=== PATIENT | male | born 1960 | race Caucasian/White ===

== ENCOUNTER 2022-11-13 07:28 | Outpatient (OUT) | payer MEDICARE, SELFPAY ==
[2022-11-13 08:57] VITALS: BP 143/84; PULSE 73; RESP 18; TEMP 36.5; O2SAT 97
--- NOTE | 2022-11-13 09:14 | PC.NURSE ---
Patient is here for Gamunex infusion, he states he has been getting these for about 2 years and has tolerated them well. He denies any issues or concerns today. Vitals are stable.
[2022-11-13 09:29] VITALS: BMI 27.5
[2022-11-13] MEDS: 0.9 % SODIUM CHLORIDE 250 ML 10 ML IV (09:35)
[2022-11-13] MEDS: HYDROCORTISONE SODIUM SUCC PF 100 MG/2 ML VIAL 120 MG IVP (09:37)
[2022-11-13] MEDS: IGA AVG IV (10:09)
[2022-11-13] MEDS: IMMUNE GLOBUL IV (10:09)
[2022-11-13] MEDS: GLY IV (10:09)
[2022-11-13 12:30] VITALS: BP 137/84; PULSE 73; RESP 18; O2SAT 94
--- NOTE | 2022-11-13 12:31 | PC.NURSE ---
Patient completed his Gamunex infusion without any issues. Vitals remained stable, he tolerated this well. IV was discontinued and he was discharged home.
== END 2022-11-13 07:29 | disposition home or self-care (01) ==
LOC: INF 07:28
PROVIDERS: PCP Family Medicine
DX: D80.6 Antibody deficiency with near-normal immunoglobulins or with hyperimmunoglobulinemia (principal)
CPT/HCPCS: 96365; 96366; 96375; J1561; J1720

== ENCOUNTER 2022-12-11 12:24 | Outpatient (OUT) | payer MEDICARE, SELFPAY ==
[2022-12-11 12:30] VITALS: BP 114/77; PULSE 96; RESP 20; TEMP 35.9; O2SAT 96
[2022-12-11] MEDS: HYDROCORTISONE SODIUM SUCC PF 100 MG/2 ML VIAL 120 MG IVP (12:59)
[2022-12-11] MEDS: 0.9 % SODIUM CHLORIDE 250 ML 10 ML IV (13:00)
[2022-12-11] MEDS: IMMUNE GLOBUL IV (13:34)
[2022-12-11] MEDS: GLY IV (13:34)
[2022-12-11] MEDS: IGA AVG IV (13:34)
--- NOTE | 2022-12-11 14:14 | PC.NURSE ---
Patient is here for Gamunex infusion, he denies any issues or concerns. He tolerated his IV start well, and he took his home medications of Tylenol and Benadryl. Gamunex is infusing and he is tolerating this well. We will continue to monitor.
[2022-12-11 14:43] VITALS: BP 104/66; PULSE 79; RESP 18; O2SAT 92
[2022-12-11 15:49] VITALS: BP 117/75; PULSE 76; RESP 18; O2SAT 94
== END 2022-12-11 12:25 | disposition home or self-care (01) ==
LOC: INF 12:32
PROVIDERS: PCP Family Medicine
DX: D80.6 Antibody deficiency with near-normal immunoglobulins or with hyperimmunoglobulinemia (principal)
CPT/HCPCS: 96365; 96366; 96374; J1561; J1720

== ENCOUNTER 2023-01-08 08:09 | Outpatient (RCR) | payer MEDICARE, SELFPAY ==
[2023-01-08 11:38] VITALS: BP 125/79; PULSE 76; RESP 18; O2SAT 94
[2023-01-08] MEDS: HYDROCORTISONE SODIUM SUCC PF 100 MG/2 ML VIAL 120 MG IVP (11:56)
[2023-01-08] MEDS: 0.9 % SODIUM CHLORIDE 250 ML IV (11:57)
[2023-01-08] MEDS: IMMUNE GLOBUL IV (11:58)
[2023-01-08] MEDS: IGA AVG IV (11:58)
[2023-01-08] MEDS: GLY IV (11:58)
[2023-01-08 12:50] LABS: Alanine Aminotransferase 14 U/L (16-63); Albumin Globulin Ratio 0.8; Albumin Level 3.2 g/dL (3.4-5.0); Alkaline Phosphatase 103 U/L (46-116); Anion Gap 12.7; Aspartate Amino Transferase 11 U/L (15-37); BUN Creatinine Ratio 15.3; Bilirubin Total 0.2 mg/dL (0.2-1.0); Calcium 8.2 mg/dL (8.5-10.1); Carbon Dioxide 23.7 mmol/L (21.0-32.0); Chloride 104 mmol/L (98-107); Estimated GFR (African America >60 (>=60); Estimated GFR (Non-African Ame 56 (>=60); Globulin 3.9 g/dL; Glucose 76 mg/dL (74-106); Potassium 3.4 mmol/L (3.5-5.1); Sodium 137 mmol/L (136-145); Total Protein 7.1 g/dL (6.4-8.2)
--- NOTE | 2023-01-08 13:03 | PC.NURSE ---
Patient is here for Gamunex infusion, he denies any issues or concerns. Labs were drawn from his IV site without difficulty, patient is tolerating infusion well. We will continue to monitor.
[2023-01-11 00:06] LABS: Immunoglobulin A, Qn, Serum 242 mg/dL (61-437); Immunoglobulin E, Total 9 IU/mL (6-495); Immunoglobulin G, Qn, Serum 1141 mg/dL (603-1613); Immunoglobulin M, Qn, Serum 51 mg/dL (20-172)
== END 2023-01-31 23:59 | disposition home or self-care (01) ==
LOC: INF 08:09
PROVIDERS: PCP Family Medicine
DX: D80.6 Antibody deficiency with near-normal immunoglobulins or with hyperimmunoglobulinemia (principal)
CPT/HCPCS: 36415; 80053; 82784; 82785; 96365; 96366; 96374; J1561; J1720

== ENCOUNTER 2023-02-04 07:30 | Outpatient (RCR) | payer MEDICARE, SELFPAY ==
[2023-02-04] MEDS: HYDROCORTISONE SODIUM SUCC PF 100 MG/2 ML VIAL 120 MG IVP (12:29)
[2023-02-04] MEDS: 0.9 % SODIUM CHLORIDE 500 ML 100 ML IV (12:30)
[2023-02-04] MEDS: IGA AVG IV (12:31)
[2023-02-04] MEDS: GLY IV (12:31)
[2023-02-04] MEDS: IMMUNE GLOBUL IV (12:31)
[2023-02-04 12:33] VITALS: BP 132/81; PULSE 80; RESP 16; TEMP 37; O2SAT 98
--- NOTE | 2023-02-04 12:47 | PC.NURSE ---
gamunex increased to 108 ml/hr. tolerating well, lunchordered. resting quietly in recliner
--- NOTE | 2023-02-04 16:21 | PC.NURSE ---
1415 increased infusion to 432 ml hr. 1500 IVIG infused, tolerated well. NS initated 250 ml over 30 mins. 1530 NSS infused. IV dc'd catheter intact. Released ambulatory
== END 2023-03-03 23:59 | disposition home or self-care (01) ==
LOC: INF 07:30
PROVIDERS: PCP Family Medicine
DX: D80.6 Antibody deficiency with near-normal immunoglobulins or with hyperimmunoglobulinemia (principal)
CPT/HCPCS: 36415; 96365; 96366; J1561; J1720

== ENCOUNTER 2023-02-04 11:30 | Outpatient (OUT) | payer MEDICARE, SELFPAY ==
[2023-02-04 13:14] LABS: Basophils Percent Auto 0.2 % (0.2-2.0); Hematocrit 44.5 % (42.0-54.0); Hemoglobin 14.8 g/dL (14.0-18.0); Immature Granulocytes Abs Auto 0.03 10^3/uL (0.00-0.03); Immature Granulocytes Pct Auto 0.6 % (0.0-0.5); Lymphocytes Absolute Auto 1.2 10^3/uL (1.2-3.8); Lymphocytes Percent Auto 24.7 % (20.5-60.0); Mean Corpuscular HGB Conc 33.3 g/dL (29.9-35.2); Mean Corpuscular Hemoglobin 30.7 pg (25.9-34.0); Mean Corpuscular Volume 92.3 fL (80.0-94.0); Mean Platelet Volume 9.7 fL (9.5-13.5); Monocytes Absolute Auto 0.2 10^3/uL (0.3-0.8); Monocytes Percent Auto 3.5 % (1.7-12.0); Neutrophils Absolute Auto 3.4 10^3/uL (1.4-6.5); Platelet Count 161 10^3/uL (150-450); Red Blood Count 4.82 10^6/uL (4.70-6.10); Red Cell Distribution Width 13.9 % (11.0-15.0); White Blood Count 4.9 10^3/uL (4.0-11.0)
[2023-02-04 13:21] LABS: Anion Gap 10.2; BUN Creatinine Ratio 18.9; Carbon Dioxide 24.5 mmol/L (21.0-32.0); Chloride 103 mmol/L (98-107); Estimated GFR (African America >60 (>=60); Estimated GFR (Non-African Ame >60 (>=60); Glucose 77 mg/dL (74-106); Potassium 3.7 mmol/L (3.5-5.1); Sodium 134 mmol/L (136-145)
== END 2023-02-04 11:31 | disposition home or self-care (01) ==
LOC: INF 11:33
PROVIDERS: PCP Family Medicine; Visit Provider Family Medicine
DX: E87.8 Other disorders of electrolyte and fluid balance, not elsewhere classified (principal); D51.0 Vitamin B12 deficiency anemia due to intrinsic factor deficiency
CPT/HCPCS: 36415; 80048; 85025

== ENCOUNTER 2023-03-04 07:32 | Outpatient (RCR) | payer MEDICARE, SELFPAY ==
[2023-03-04] MEDS: HYDROCORTISONE SODIUM SUCC PF 100 MG/2 ML VIAL 120 MG IVP (12:34)
[2023-03-04] MEDS: 0.9 % SODIUM CHLORIDE 250 ML IV (12:37)
[2023-03-04] MEDS: IGA AVG IV (13:01)
[2023-03-04] MEDS: IMMUNE GLOBUL IV (13:01)
[2023-03-04] MEDS: GLY IV (13:01)
[2023-03-04 14:03] VITALS: BP 145/87; PULSE 86; RESP 14; TEMP 36.6; O2SAT 94
[2023-03-04] MEDS: 0.9 % SODIUM CHLORIDE 250 ML 10 ML IV (15:35)
[2023-03-04 16:05] VITALS: BP 144/86; PULSE 84; RESP 16; TEMP 36.6; O2SAT 92
[2023-03-04 16:40] VITALS: BP 101/66; PULSE 111; RESP 16; TEMP 36.4; O2SAT 94
--- NOTE | 2023-03-04 16:42 | PC.NURSE ---
1210: Pt. to [facility] amb. using can for assist, for monthly infusion. Seated in recliner. VSS. IV initiated to right arm on first attempt. Pt. tolerates with no c/o. IV flushes easily without redness or edema. IV normal saline 250cc bolus initiated at this time. 1234: Medicated with Solucortef slow ivp as ordered. Lunch tray ordered for pt. 1301: Saline bolus completed, Gamunex-C initiated as ordered to be given in titrated format. Pt. without c/o or needs. Instructed to inform this RN of chills, n/v or dyspnea or if any abnormal symptoms occur. Pt. relays understanding. 1331: Gamunex rate increased at this time. Pt. without c/o. Eating lunch tray. 1403: Warm blanket provided. VSS. Denies needs. 1535: Gamunex infusion completed at this time without any c/o adverse reaction. IV 0.9% NS 250cc bolus initiated at this time. IV site remains without s&s of infiltration. 1605: Saline bolus completed. IV d/c'd, pressure to site. 1610: Pt. d/c'd amb to home
== END 2023-03-18 14:40 | disposition home or self-care (01) ==
LOC: INF 07:32
PROVIDERS: PCP Family Medicine
DX: D80.6 Antibody deficiency with near-normal immunoglobulins or with hyperimmunoglobulinemia (principal)
CPT/HCPCS: 96360; 96365; 96366; 96374; J1561; J1720

== ENCOUNTER 2023-04-02 08:01 | Outpatient (RCR) | payer MEDICARE, SELFPAY ==
[2023-03-18 14:41] VITALS: BP 101/66; PULSE 111; RESP 16; TEMP 36.4; O2SAT 94
== END 2023-04-02 10:45 | disposition home or self-care (01) ==
LOC: INF 08:01
PROVIDERS: PCP Family Medicine
DX: D80.6 Antibody deficiency with near-normal immunoglobulins or with hyperimmunoglobulinemia (principal)

== ENCOUNTER 2023-04-09 07:34 | Outpatient (RCR) | payer MEDICARE, SELFPAY ==
[2023-04-09] MEDS: HYDROCORTISONE SODIUM SUCC PF 100 MG/2 ML VIAL 120 MG IVP (09:38)
[2023-04-09] MEDS: 0.9 % SODIUM CHLORIDE 250 ML 50 ML IV (09:39)
[2023-04-09 09:46] VITALS: BP 159/92; PULSE 100; RESP 18; TEMP 35.7; O2SAT 94
--- NOTE | 2023-04-09 09:58 | PC.NURSE ---
0920 Arrival ambulatory to chair 3. Alert orieted. Patient stated takes oral benadryl and tylenol at home 2 hrs prior to arrival. # 20 iv initated rt wrist area on 2nd attempt, pt mireille well. 0945 lab in and mar all labs. IV solucortef as ordered. IV NS 250 ml bolus prior to Gamunex.
[2023-04-09 10:03] LABS: Basophils Percent Auto 0.2 % (0.2-2.0); Hematocrit 48.4 % (42.0-54.0); Hemoglobin 16.4 g/dL (14.0-18.0); Immature Granulocytes Abs Auto 0.02 10^3/uL (0.00-0.03); Immature Granulocytes Pct Auto 0.4 % (0.0-0.5); Lymphocytes Absolute Auto 1.4 10^3/uL (1.2-3.8); Lymphocytes Percent Auto 24.6 % (20.5-60.0); Mean Corpuscular HGB Conc 33.9 g/dL (29.9-35.2); Mean Corpuscular Hemoglobin 30.9 pg (25.9-34.0); Mean Corpuscular Volume 91.1 fL (80.0-94.0); Mean Platelet Volume 8.8 fL (9.5-13.5); Monocytes Absolute Auto 0.4 10^3/uL (0.3-0.8); Monocytes Percent Auto 7.4 % (1.7-12.0); Neutrophils Absolute Auto 3.8 10^3/uL (1.4-6.5); Neutrophils Percent Auto 67.4 % (43.0-75.0); Platelet Count 238 10^3/uL (150-450); Red Blood Count 5.31 10^6/uL (4.70-6.10); Red Cell Distribution Width 13.5 % (11.0-15.0); White Blood Count 5.6 10^3/uL (4.0-11.0)
[2023-04-09] MEDS: IMMUNE GLOBUL IV (10:09)
[2023-04-09] MEDS: GLY IV (10:09)
[2023-04-09] MEDS: IGA AVG IV (10:09)
--- NOTE | 2023-04-09 10:10 | PC.NURSE ---
1010 250 ml of ns infused, IV gamunex initiated , at 54 ml hr for 30 mins, using multistep program on pump. 2nd step 108 ml hr x 15 mins,
--- NOTE | 2023-04-09 10:41 | PC.NURSE ---
rate increased per protocol, tolerating infusion without difficulty.
[2023-04-09] MEDS: 0.9 % SODIUM CHLORIDE 250 ML IV (12:00)
[2023-04-09 12:25] LABS: Alanine Aminotransferase 7 U/L (16-63); Albumin Level 3.8 g/dL (3.4-5.0); Alkaline Phosphatase 103 U/L (46-116); Anion Gap 13.2; Aspartate Amino Transferase 8 U/L (15-37); BUN Creatinine Ratio 19.1; Bilirubin Total 0.5 mg/dL (0.2-1.0); Calcium 8.7 mg/dL (8.5-10.1); Carbon Dioxide 22.2 mmol/L (21.0-32.0); Chloride 103 mmol/L (98-107); Estimated GFR (African America >60 (>=60); Estimated GFR (Non-African Ame >60 (>=60); Globulin 3.7 g/dL; Glucose 89 mg/dL (74-106); Potassium 3.4 mmol/L (3.5-5.1); Sodium 135 mmol/L (136-145); TSH W/ REFLEX FT4 3.596 (0.358-3.740); Total Protein 7.5 g/dL (6.4-8.2)
[2023-04-10 04:07] LABS: Immunoglobulin G, Qn 1126 mg/dL (603-1613)
[2023-04-10 06:09] LABS: Cytomegalovirus (CMV) Ab, IgM <30.0 AU/mL (0.0-29.9)
[2023-04-10 16:09] LABS: EBV Ab VCA, IgM <36.0 U/mL (0.0-35.9)
[2023-04-17 22:10] LABS: Zinc Level 90 ug/dL (44-115)
== END 2023-04-09 11:50 | disposition home or self-care (01) ==
LOC: INF 07:34
PROVIDERS: PCP Family Medicine
DX: D80.6 Antibody deficiency with near-normal immunoglobulins or with hyperimmunoglobulinemia (principal); R53.83 Other fatigue
CPT/HCPCS: 36415; 80053; 82306; 82607; 82784; 84443; 84630; 85025; 86632; 86645; 86664; 86665; 86738; 96360; 96365; 96366; 96374; J1561; J1720

== ENCOUNTER 2023-05-14 07:30 | Outpatient (RCR) | payer MEDICARE, SELFPAY ==
[2023-05-14 11:25] VITALS: BP 134/86; PULSE 86; RESP 18; TEMP 35.7; O2SAT 93
[2023-05-14] MEDS: 0.9 % SODIUM CHLORIDE 250 ML IV (11:31)
[2023-05-14] MEDS: HYDROCORTISONE SODIUM SUCC PF 100 MG/2 ML VIAL 120 MG IVP (11:37)
[2023-05-14] MEDS: IMMUNE GLOBUL IV (11:53)
[2023-05-14] MEDS: IGA AVG IV (11:53)
[2023-05-14] MEDS: GLY IV (11:53)
--- NOTE | 2023-05-14 11:56 | PC.NURSE ---
1110 arrival ambulatory to chair 3. alert oriented, offers no complants. relates to hx of influenza 3 weeks ago. 1120 IV #22 initiated left forearm on 1 attempt, excellent blood return noted. patient tolerated well. NS infusion 250 ml bolus initiated See MAR for medical leader times 1145 IV Gamunex initated via pump using multistep feature. 54 ml/15 mins 108 ml/hr 30 min 216ml/hr 15 mins 324ml/hr 15 mins 432ml/hr 15 mins 756ml/hr until finished.
--- NOTE | 2023-05-14 12:02 | PC.NURSE ---
1200 tolerating infusion without any s/s of reaction. lunch ordered
--- NOTE | 2023-05-14 12:03 | PC.NURSE ---
1100 patient had taken benadryl and tylenol at home 2 hours prior to appt.
--- NOTE | 2023-05-14 12:24 | PC.NURSE ---
1225 tolerating infusion, titrating up as ordered
--- NOTE | 2023-05-14 12:39 | PC.NURSE ---
tolerating infusion without any adverse reaction, rate increased as ordered. Eating meal at this time
[2023-05-14] MEDS: 0.9 % SODIUM CHLORIDE 250 ML 500 ML IV (13:48)
--- NOTE | 2023-05-14 13:50 | PC.NURSE ---
1330 infusion completed. 250 ns initiated. tolerated well.1358 IV site dc'd catheter intact. 1400 discharged ambulatory
[2023-05-14 13:57] VITALS: BP 140/82; PULSE 91; RESP 18; TEMP 36.3; O2SAT 94
== END 2023-06-03 23:59 | disposition home or self-care (01) ==
LOC: INF 07:30
PROVIDERS: PCP Family Medicine
DX: D80.6 Antibody deficiency with near-normal immunoglobulins or with hyperimmunoglobulinemia (principal)
CPT/HCPCS: 51798; 96365; 96366; 96368; 96374; J1561; J1720

== ENCOUNTER 2023-06-11 07:28 | Outpatient (RCR) | payer MEDICARE, SELFPAY ==
[2023-06-11 11:16] VITALS: BP 117/80; RESP 18; TEMP 35.9; O2SAT 95
[2023-06-11] MEDS: 0.9 % SODIUM CHLORIDE 500 ML 250 ML IV (11:20)
--- NOTE | 2023-06-11 11:20 | PC.NURSE ---
1110 Arrival ambulatory to chair 3. alert oriented. offers no complaints. 1120 Iv initiated rt upper forearm on 1 attempt tolerated well.
--- NOTE | 2023-06-11 11:23 | PC.NURSE ---
1125 Lungs sounds clear to ausculation, heart tones strong and regular.
[2023-06-11] MEDS: HYDROCORTISONE SODIUM SUCC PF 100 MG/2 ML VIAL 120 MG IV (11:34)
[2023-06-11] MEDS: IGA AVG IV (11:53)
[2023-06-11] MEDS: IMMUNE GLOBUL IV (11:53)
[2023-06-11] MEDS: GLY IV (11:53)
--- NOTE | 2023-06-11 11:56 | PC.NURSE ---
1145 iv gamunex initiated as follows:48 ml/hr for 15 mins, 96 ml/hr for 15 mins, 192 ml/hr for 15 mins, 288 ml/hr for 15 mins, 384 ml/hr for 15 mins 672 ml/hr until infused. educated on s/s of reaction, verbalizes understanding.
--- NOTE | 2023-06-11 14:08 | PC.NURSE ---
1345 iv gamunex infused, 250 cc of ns followed.1400 nss infused. dc'd catheter intact site clear cottonball applied secured with coban. 1410 Released ambulatory.
== END 2023-06-11 15:03 | disposition home or self-care (01) ==
LOC: INF 07:28
PROVIDERS: PCP Family Medicine
DX: D80.6 Antibody deficiency with near-normal immunoglobulins or with hyperimmunoglobulinemia (principal)
CPT/HCPCS: 96360; 96365; 96366; J1561; J1720

== ENCOUNTER 2023-07-02 15:34 | Outpatient (OUT) | payer MEDICARE, SELFPAY ==
[2023-07-02 16:06] LABS: Anion Gap 10.6; BUN Creatinine Ratio 18.3; Calcium 8.3 mg/dL (8.5-10.1); Carbon Dioxide 25.5 mmol/L (21.0-32.0); Chloride 104 mmol/L (98-107); Estimated GFR (African America >60 (>=60); Estimated GFR (Non-African Ame >60 (>=60); Glucose 76 mg/dL (74-106); Potassium 4.1 mmol/L (3.5-5.1); Sodium 136 mmol/L (136-145)
== END 2023-07-02 15:35 | disposition home or self-care (01) ==
PROVIDERS: PCP Family Medicine; Visit Provider Family Medicine
DX: N25.89 Other disorders resulting from impaired renal tubular function (principal); E87.6 Hypokalemia; D80.6 Antibody deficiency with near-normal immunoglobulins or with hyperimmunoglobulinemia
CPT/HCPCS: 36415; 80048

== ENCOUNTER 2023-07-09 07:35 | Outpatient (RCR) | payer MEDICARE, SELFPAY ==
[2023-07-09] MEDS: 0.9 % SODIUM CHLORIDE 500 ML 999 ML IV (12:00)
[2023-07-09] MEDS: HYDROCORTISONE SODIUM SUCC PF 100 MG/2 ML VIAL 120 MG IV (12:06)
[2023-07-09] MEDS: GLY IV (12:18)
[2023-07-09] MEDS: IGA AVG IV (12:18)
[2023-07-09] MEDS: IMMUNE GLOBUL IV (12:18)
[2023-07-09 12:21] VITALS: BP 132/86; PULSE 64; RESP 18; TEMP 36.1; O2SAT 94
--- NOTE | 2023-07-09 12:24 | PC.NURSE ---
1145 Arrival ambulatory.Alert oriented. Weight obtained. seated in chair 2. Patient voices no complaints.1150 #22 iv initiated rt forearm on 1st attempt, tolerated well, excellent blood return. IV NS initiated 250 ml bolus. 1215 iv solucortef given. meal ordered.
--- NOTE | 2023-07-09 12:45 | PC.NURSE ---
1200 patient stated he took his pre meds of benadryl and tylenol at home.
[2023-07-09 13:39] VITALS: BP 134/68; PULSE 76; RESP 18; TEMP 36.3; O2SAT 96
--- NOTE | 2023-07-09 14:12 | PC.NURSE ---
1405 gammunex infused. 250ml of ns began. patient ate 100% of meal. watching tv. no complaints offered.
--- NOTE | 2023-07-09 14:56 | PC.NURSE ---
1340 iv saline infused. IV site dc''d catheter intact, site clear. released ambulatory
== END 2023-07-09 14:58 | disposition home or self-care (01) ==
LOC: INF 07:35
PROVIDERS: PCP Family Medicine
DX: D80.6 Antibody deficiency with near-normal immunoglobulins or with hyperimmunoglobulinemia (principal)
CPT/HCPCS: 96360; 96365; 96366; 96374; J1561; J1720

== ENCOUNTER 2023-07-28 14:05 | Outpatient (OUT) | payer MEDICARE, SELFPAY ==
--- NOTE | 2023-07-28 14:24 | XR_ITS ---
The [address] [address] Patient Name: VERNA NEELY MRN: [id number] date: 1960 Sex: M Assigned Patient Location: LAB Current Patient Location: Accession/Order Number: [id number] Exam Date: 07/28/2023 14:31 Report Date: 07/29/2023 07:32 At the request of: RACHEL VEGA Procedure: XR chest 2V EXAMINATION: XR chest 2V HISTORY: Acute Febrile Illness R50.9 COMPARISON: XR chest 11/27/2021 FINDINGS: LUNGS: Underexpanded lungs with trace amount of stranding within left lung base. VASCULATURE: No increased pulmonary vasculature. PLEURA: No pneumothorax, effusion, or pleural thickening. CARDIAC: No cardiomegaly or cardiac silhouette abnormality. MEDIASTINUM: No visible mass or adenopathy. BONES: No fracture or visible bone lesion. OTHER: Negative. XR/XR chest 2V IMPRESSION: 1. Low lung volume examination with trace amount of left basilar atelectasis or possibly infiltrates. Electronically authenticated by: SHILPI FUENTES Date: 07/29/2023 07:32
[2023-07-28 15:26] LABS: Basophils Percent Auto 0.3 % (0.2-2.0); Eosinophils Percent Auto 0.2 % (0.9-7.0); Hematocrit 43.5 % (42.0-54.0); Hemoglobin 14.3 g/dL (14.0-18.0); Immature Granulocytes Abs Auto 0.03 10^3/uL (0.00-0.03); Immature Granulocytes Pct Auto 0.5 % (0.0-0.5); Lymphocytes Absolute Auto 1.7 10^3/uL (1.2-3.8); Lymphocytes Percent Auto 26.1 % (20.5-60.0); Mean Corpuscular HGB Conc 32.9 g/dL (29.9-35.2); Mean Corpuscular Hemoglobin 30.8 pg (25.9-34.0); Mean Corpuscular Volume 93.5 fL (80.0-94.0); Mean Platelet Volume 9.8 fL (9.5-13.5); Monocytes Absolute Auto 0.5 10^3/uL (0.3-0.8); Monocytes Percent Auto 6.8 % (1.7-12.0); Neutrophils Absolute Auto 4.4 10^3/uL (1.4-6.5); Neutrophils Percent Auto 66.1 % (43.0-75.0); Platelet Count 189 10^3/uL (150-450); Red Blood Count 4.65 10^6/uL (4.70-6.10); Red Cell Distribution Width 13.6 % (11.0-15.0); White Blood Count 6.6 10^3/uL (4.0-11.0)
[2023-07-28 15:36] LABS: Calcium 8.4 mg/dL (8.5-10.1); Carbon Dioxide 24.8 mmol/L (21.0-32.0); Chloride 103 mmol/L (98-107); Estimated GFR (African America >60 (>=60); Estimated GFR (Non-African Ame >60 (>=60); Glucose 79 mg/dL (74-106); Potassium 3.8 mmol/L (3.5-5.1); Sodium 136 mmol/L (136-145)
== END 2023-07-28 14:06 | disposition home or self-care (01) ==
LOC: LAB 14:08
PROVIDERS: PCP Family Medicine; Visit Provider Family Medicine
DX: R50.9 Fever, unspecified (principal); G89.29 Other chronic pain; M54.9 Dorsalgia, unspecified
CPT/HCPCS: 36415; 71046; 80048; 85025; 87086

== ENCOUNTER 2023-08-20 07:37 | Outpatient (RCR) | payer MEDICARE, SELFPAY ==
[2023-08-20 12:15] VITALS: BP 130/87; PULSE 81; TEMP 37.1; O2SAT 96
--- NOTE | 2023-08-20 12:18 | PC.NURSE ---
1145 arrival ambulatory to chair 2, alert oriented, offers no complaints. IV site initiated, see documentation.
--- NOTE | 2023-08-20 12:19 | PC.NURSE ---
1210 labs drawn and sent to lab.
[2023-08-20] MEDS: 0.9 % SODIUM CHLORIDE 500 ML IV (12:24)
[2023-08-20] MEDS: HYDROCORTISONE SODIUM SUCC PF 100 MG/2 ML VIAL 120 MG IV (12:24)
[2023-08-20] MEDS: IMMUNE GLOBUL IV (12:47)
[2023-08-20] MEDS: IGA AVG IV (12:47)
[2023-08-20] MEDS: GLY IV (12:47)
[2023-08-20 13:40] VITALS: BP 169/98; PULSE 71; TEMP 36.6; O2SAT 94
[2023-08-20 13:57] LABS: Alanine Aminotransferase 8 U/L (16-63); Albumin Globulin Ratio 1.1; Albumin Level 3.6 g/dL (3.4-5.0); Alkaline Phosphatase 111 U/L (46-116); Anion Gap 14.9; Aspartate Amino Transferase 8 U/L (15-37); BUN Creatinine Ratio 20.5; Bilirubin Total 0.3 mg/dL (0.2-1.0); Calcium 8.8 mg/dL (8.5-10.1); Carbon Dioxide 20.8 mmol/L (21.0-32.0); Chloride 107 mmol/L (98-107); Estimated GFR (African America >60 (>=60); Estimated GFR (Non-African Ame >60 (>=60); Globulin 3.3 g/dL; Glucose 97 mg/dL (74-106); Potassium 3.7 mmol/L (3.5-5.1); Sodium 139 mmol/L (136-145); Total Protein 6.9 g/dL (6.4-8.2)
--- NOTE | 2023-08-20 15:04 | PC.NURSE ---
1445 infusion completed. normal saline 250 cc bolus post gammunex initiated. 1500 infusion completed. IV dc'd catheter intact site clear. patient released ambulatory
[2023-08-21 05:08] LABS: Immunoglobulin G, Qn 1123 mg/dL (603-1613)
== END 2023-09-01 23:59 | disposition home or self-care (01) ==
LOC: INF 07:37
PROVIDERS: PCP Family Medicine
DX: D80.6 Antibody deficiency with near-normal immunoglobulins or with hyperimmunoglobulinemia (principal)
CPT/HCPCS: 36415; 80053; 82784; 96365; 96366; J1561; J1720

== ENCOUNTER 2023-08-28 14:38 | Outpatient (OUT) | payer MEDICARE, SELFPAY ==
[2023-08-28 15:52] LABS: Prostate Specific Antigen Dx 2.57 ng/mL (<=4.00)
== END 2023-08-28 14:39 | disposition home or self-care (01) ==
LOC: LAB 14:41
PROVIDERS: PCP Family Medicine; Visit Provider Physician Assistant
DX: R97.20 Elevated prostate specific antigen [PSA] (principal)
CPT/HCPCS: 36415; 84153

== ENCOUNTER 2023-09-14 22:46 | Emergency (ER) | payer MEDICARE, SELFPAY ==
[2023-09-14] VITALS (10 sets, daily range): BP systolic 111–136; BP diastolic 76–89; PULSE 77–101; TEMP 36.4; O2SAT 94–98; BMI 25.3
--- NOTE | 2023-09-14 23:12 | CT_ITS ---
The [address] [address] Patient Name: VERNA NEELY MRN: [id number] date: 1960 Sex: M Assigned Patient Location: ER Current Patient Location: Accession/Order Number: [id number] Exam Date: 09/14/2023 23:35 Report Date: 09/14/2023 23:58 At the request of: TORY MENG Procedure: CT head/brain wo con Head CT 09/14/2023 10:35 PM CDT History: head injury. . Head trauma. Comparison: None Technique: Unenhanced CT imaging of the head. This CT exam was performed using one or more of the following dose reduction techniques: Automated exposure control, adjustment of the mA and/or KV according to patient size, or use of iterative reconstruction technique. Findings: There is no evidence of acute intracranial abnormality. Specifically, there is no evidence of acute hemorrhage, infarct, contusion, hydrocephalus, midline shift, or abnormal extra-axial collection. The calvarium is intact. The paranasal sinuses and mastoid air cells are clear. CT/CT head/brain wo con Impression: 1. No acute intracranial abnormality. Electronically authenticated by: SALLY BARCENAS Date: 09/14/2023 23:58
--- NOTE | 2023-09-14 23:12 | CT_ITS ---
The [address] [address] Patient Name: VERNA NEELY MRN: [id number] date: 1960 Sex: M Assigned Patient Location: ER Current Patient Location: Accession/Order Number: [id number] Exam Date: 09/14/2023 23:35 Report Date: 09/15/2023 00:22 At the request of: TORY MENG Procedure: CT thoracic spine wo con EXAM: CT thoracic spine wo con HISTORY: The patient is a 63-year-old male, injury COMPARISON: CT scan of the chest from 11/02/2020. TECHNIQUE: CT images were obtained through the thoracic spine without intravenous contrast and reformatted in 2 dimensions. Dose reduction techniques were achieved by using automated exposure control and/or adjustment of mA and/or kV according to patient size and/or use of iterative reconstruction technique. FINDINGS: The axial images demonstrate no fractures or cortical discontinuities throughout the thoracic spine. The coronal and sagittal reformatted images demonstrate no acute fractures or loss of vertebral body height throughout the thoracic spine. There is slight central depression of the superior endplate of the T3 vertebral body, and this is unchanged since the prior CT scan of 11/02/2020. There is no significant malalignment or disc space narrowing throughout the thoracic spine. The soft tissue images demonstrate no evidence of sizable disc herniations or central canal stenosis throughout the thoracic spine. CT/CT thoracic spine wo con IMPRESSION: This is a relatively negative CT scan of the thoracic spine with no acute fractures or loss of vertebral body height. Electronically authenticated by: IVANA LEZAMA Date: 09/15/2023 00:22
--- NOTE | 2023-09-14 23:12 | CT_ITS ---
The [address] [address] Patient Name: VERNA NEELY MRN: [id number] date: 1960 Sex: M Assigned Patient Location: ER Current Patient Location: Accession/Order Number: [id number] Exam Date: 09/14/2023 23:35 Report Date: 09/15/2023 00:10 At the request of: TORY MENG Procedure: CT cervical spine wo con CT cervical spine wo con 09/14/2023 10:35 PM CDT: History: injury Neck Pain Comparison: None. Technique: Unenhanced CT imaging of the cervical spine. This CT exam was performed using one or more of the following dose reduction techniques: Automated exposure control, adjustment of the mA and/or KV according to patient size, or use of iterative reconstruction technique. Findings: The cervical vertebral bodies maintain normal height and alignment. There is no fracture or dislocation. The prevertebral soft tissues and predental space are normal. The facet joints are aligned bilaterally. The atlantooccipital articulation is normal bilaterally. There is multilevel degenerative disc disease of the cervical spine. CT/CT cervical spine wo con Impression: 1. No acute abnormality of the cervical spine. Electronically authenticated by: SALLY BARCENAS Date: 09/15/2023 00:10
--- NOTE | 2023-09-14 23:13 | ED.FALL1 ---
HPI HPI - Fall General Chief Complaint: Fall Stated Complaint: fall Time Seen by Provider: 09/14/23 23:08 Source: patient Mode of arrival: ambulance Limitations: no limitations History of Present Illness HPI Narrative: was going to step up stair to his home and loss his balance. Fell back striking the back of his head on the car bumper and then struck his head on the cement and passed out. Out for a few seconds nd then he woke up. Complains of headache and dizziness. has abrasion right elbow.. Denies chest pain, hip pain or lower ext pain. no nausea MD complaint: Reports fall Related Data Allergies Allergy/AdvReac Type Severity Reaction Status Date / Time baclofen Allergy Verified 09/14/23 22:54 ciprofloxacin [From Cipro] Allergy Verified 09/14/23 22:54 indomethacin [From Indocin] Allergy Verified 09/14/23 22:54 Penicillins Allergy Verified 09/14/23 22:54 propranolol Allergy Verified 09/14/23 22:54 Sulfa (Sulfonamide Allergy Verified 09/14/23 22:54 Antibiotics) Opioid HPI Opioid Management Most Recent Pain and Opioid Data: No Data to Display Review of Systems ROS Status of ROS 10 or more systems reviewed and unremarkable except as noted in history and below Exam Constitutional Vital Signs, click to edit/add: Last Vital Signs Temp 97.6 F 09/14/23 22:50 Pulse 80 09/15/23 00:50 Resp 19 09/15/23 00:50 BP 116/81 09/15/23 00:30 Pulse Ox 94 L 09/15/23 00:50 O2 Del Method Room Air 09/14/23 22:50 Common normals: no apparent distress, average body habitus, oriented x3, no limitations, healthy appearing, alert and well nourished [facility] Common normals: normocephalic and head/scalp atraumatic Eye Common normals: PERRL and EOMs intact bilaterally Respiratory Common normals: normal respiratory effort, no retractions, no use of accessory muscles and clear to auscultation bilaterally Cardio Common normals: regular rate, regular rhythm, S1 normal heart sound and S2 normal heart sound GI Common normals: Normal to inspection, nondistended, normoactive bowel sounds present, soft to palpation and non-tender Back & Pelvis Common normals: thoracic and lumbar spine normal to inspection Other: pelvis and hips nontender Extremity Other: mild abrasion right elbow. No swelling . FROM of the elbow Neuro Common normals: oriented x3, CN's II-XII intact bilaterally, moves all extremities, no focal motor deficits and no sensory deficits noted Psych Appearance: grossly normal Course Vital Signs Vital signs: Vital Signs Blood Pressure 112/76 09/14/23 22:48 Temperature 97.6 F 09/14/23 22:50 Pulse Rate 80 09/15/23 00:50 Respiratory Rate 19 09/15/23 00:50 Blood Pressure 116/81 09/15/23 00:30 Pulse Oximetry 94 L 09/15/23 00:50 Oxygen Delivery Method Room Air 09/14/23 22:50 MDM - Fall MDM Narrative Medical decision making narrative: patient fell backwards striking his head and did pass out for few seconds. Complains of headache and dizziness. has past history of vertigo.CT brain, CT C-T spine neg. patient treated for Vertigo and is now feeling better and feels he can go home. Discharged home in improved condition Lab Data Labs: Lab Results 09/14/23 Range/Units 23:17 WBC 5.7 (4.0-11.0) 10^3/uL RBC 4.77 (4.70-6.10) 10^6/uL Hgb 14.6 (14.0-18.0) g/dL Hct 45.0 (42.0-54.0) % MCV 94.3 H (80.0-94.0) fL MCH 30.6 (25.9-34.0) pg MCHC 32.4 (29.9-35.2) g/dL RDW 13.2 (11.0-15.0) % Plt Count 207 (150-450) 10^3/uL MPV 9.4 L (9.5-13.5) fL Neut % (Auto) 60.4 (43.0-75.0) % Lymph % (Auto) 31.6 (20.5-60.0) % [place] % (Auto) 7.2 (1.7-12.0) % Eos % (Auto) 0.0 L (0.9-7.0) % Baso % (Auto) 0.4 (0.2-2.0) % Neut # (Auto) 3.4 (1.4-6.5) 10^3/uL Lymph # (Auto) 1.8 (1.2-3.8) 10^3/uL [place] # (Auto) 0.4 (0.3-0.8) 10^3/uL Eos # (Auto) 0.0 (0.0-0.7) 10^3/uL Baso # (Auto) 0.0 (0.0-0.1) 10^3/uL Abs Immat Gran (auto) 0.02 (0.00-0.03) 10^3/uL Imm/Tot Granulo (auto) 0.4 (0.0-0.5) % Sodium 133 L (136-145) mmol/L Potassium 4.0 (3.5-5.1) mmol/L Chloride 104 (98-107) mmol/L Carbon Dioxide 20.6 L (21.0-32.0) mmol/L Anion Gap 12.4 BUN 25.0 H (7.0-18.0) mg/dL Creatinine 1.18 (0.70-1.30) mg/dL Est GFR ( Amer) >60 (>=60) Est GFR (Non-Af Amer) >60 (>=60) BUN/Creatinine Ratio 21.2 Glucose 95 (74-106) mg/dL Calcium 8.6 (8.5-10.1) mg/dL Imaging Data CT scan - abdomen: Radiologist's impression: ITS Impressions Cervical Spine CT 09/14/23 23:12 Impression: 1. No acute abnormality of the cervical spine. Electronically authenticated by: SALLY BARCENAS Date: 09/15/2023 00:[address] 09/14/23 23:12 Impression: 1. No acute intracranial abnormality. Electronically authenticated by: SALLY BARCENAS Date: 09/14/2023 23:[address] 09/14/23 23:12 IMPRESSION: This is a relatively negative CT scan of the thoracic spine with no acute fractures or loss of vertebral body height. Electronically authenticated by: IVANA LEZAMA Date: 09/15/2023 00:22 Discharge Plan Discharge Stand Alone Forms: Portal Instructions Chief Complaint: Fall Clinical Impression: Vertigo, Concussion with loss of consciousness Patient Disposition: Home, Self-Care Print Language: Congolese Instructions: Vertigo (ED), Concussion (ED) Additional Instructions: follow up with your doctor in next 2-3 days for recheck Referrals: Raquel Rayo MD [Primary Care Provider] - 1 week
[2023-09-14 23:30] LABS: Basophils Percent Auto 0.4 % (0.2-2.0); Hemoglobin 14.6 g/dL (14.0-18.0); Immature Granulocytes Abs Auto 0.02 10^3/uL (0.00-0.03); Immature Granulocytes Pct Auto 0.4 % (0.0-0.5); Lymphocytes Absolute Auto 1.8 10^3/uL (1.2-3.8); Lymphocytes Percent Auto 31.6 % (20.5-60.0); Mean Corpuscular HGB Conc 32.4 g/dL (29.9-35.2); Mean Corpuscular Hemoglobin 30.6 pg (25.9-34.0); Mean Corpuscular Volume 94.3 fL (80.0-94.0); Mean Platelet Volume 9.4 fL (9.5-13.5); Monocytes Absolute Auto 0.4 10^3/uL (0.3-0.8); Monocytes Percent Auto 7.2 % (1.7-12.0); Neutrophils Absolute Auto 3.4 10^3/uL (1.4-6.5); Neutrophils Percent Auto 60.4 % (43.0-75.0); Platelet Count 207 10^3/uL (150-450); Red Blood Count 4.77 10^6/uL (4.70-6.10); Red Cell Distribution Width 13.2 % (11.0-15.0); White Blood Count 5.7 10^3/uL (4.0-11.0)
[2023-09-14 23:34] LABS: Anion Gap 12.4; BUN Creatinine Ratio 21.2; Calcium 8.6 mg/dL (8.5-10.1); Carbon Dioxide 20.6 mmol/L (21.0-32.0); Chloride 104 mmol/L (98-107); Estimated GFR (African America >60 (>=60); Estimated GFR (Non-African Ame >60 (>=60); Glucose 95 mg/dL (74-106); Sodium 133 mmol/L (136-145)
[2023-09-15] VITALS (15 sets, daily range): BP systolic 98–123; BP diastolic 69–89; PULSE 75–101; O2SAT 90–97
[2023-09-15] MEDS: LORAZEPAM 1 MG TABLET 0.5 MG PO (01:07)
[2023-09-15] MEDS: ACETAMINOPHEN 500 MG TABLET 1000 MG PO (01:07)
[2023-09-15] MEDS: MECLIZINE HCL 12.5 MG TABLET 25 MG PO (01:08)
--- NOTE | 2023-09-15 05:00 | ECG_ITS ---
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
== END 2023-09-15 02:30 | disposition home or self-care (01) ==
PROVIDERS: Emergency Provider Internal Medicine; PCP Family Medicine
DX: S06.0X1A Concussion with loss of consciousness of 30 minutes or less, initial encounter (principal); R42 Dizziness and giddiness; S50.311A Abrasion of right elbow, initial encounter; W10.8XXA Fall (on) (from) other stairs and steps, initial encounter
CPT/HCPCS: 36415; 70450; 72125; 72128; 80048; 85025; 93005; 99285

== ENCOUNTER 2023-09-15 14:28 | Outpatient (OUT) | payer MEDICARE, SELFPAY ==
[2023-09-15 15:01] LABS: Erythrocyte Sedimentation Rate 11 mm/hr (<=20)
[2023-09-15 15:24] LABS: C Reactive Protein <0.50 mg/dL (<=0.50); Thyroid Stimulating Hormone 1.494 uIU/mL (0.358-3.740)
[2023-09-15 15:52] LABS: Free T4 0.96 ng/dL (0.76-1.46)
[2023-09-17 08:11] LABS: Antinuclear Antibodies, IFA Negative (.)
== END 2023-09-15 14:29 | disposition home or self-care (01) ==
LOC: LAB 14:29
PROVIDERS: PCP Family Medicine; Visit Provider Family Medicine
DX: R53.83 Other fatigue (principal); M25.50 Pain in unspecified joint; E87.6 Hypokalemia
CPT/HCPCS: 36415; 84439; 84443; 85652; 86038; 86140

== ENCOUNTER 2023-09-17 07:25 | Outpatient (RCR) | payer MEDICARE, SELFPAY ==
[2023-09-17 11:50] VITALS: BP 138/87; PULSE 68; TEMP 36.3; O2SAT 94
[2023-09-17] MEDS: HYDROCORTISONE SODIUM SUCC PF 100 MG/2 ML VIAL 125 MG IV (12:13)
[2023-09-17] MEDS: 0.9 % SODIUM CHLORIDE 500 ML 250 ML IV (12:14)
[2023-09-17] MEDS: IGA AVG IV (12:25)
[2023-09-17] MEDS: GLY IV (12:25)
[2023-09-17] MEDS: IMMUNE GLOBUL IV (12:25)
[2023-09-17 13:30] VITALS: BP 116/74; PULSE 61; TEMP 36.6; O2SAT 95
[2023-09-17 14:50] VITALS: BP 113/61; PULSE 81; TEMP 37.2; O2SAT 95
--- NOTE | 2023-09-17 14:54 | PC.NURSE ---
1150: Pt. to [facility] using cane with ambulation. Weight obtained and called to pharmacy. Seated in recliner. VSS. IV initiated to left arm. See documentation. IV NS initiated at this time. Pt. relays comfort.
--- NOTE | 2023-09-17 15:00 | PC.NURSE ---
1213: IV Solumedrol given at this time as ordered. Lunch tray ordered for pt. 1225: IV Gamunex initiated at this time. Titrated per protocol. Pt denies needs or c/o. 1300: Tolerating infusion without c/o. Eating lunch and talking on phone. 1330: Pt. without changes. Denies needs or c/o. VSS. IV site clear. 1442: Gamunex completed at this time without s&s of adverse reaction. IV NS re-started. 1450: Saline infusion complete. IV d/c'd pressure to site. VSS. D/c'd home amb.
== END 2023-10-02 23:59 | disposition home or self-care (01) ==
LOC: INF 07:25
PROVIDERS: PCP Family Medicine
DX: D80.6 Antibody deficiency with near-normal immunoglobulins or with hyperimmunoglobulinemia (principal)
CPT/HCPCS: 96360; 96365; 96366; 96374; J1561; J1720

== ENCOUNTER 2023-10-15 07:25 | Outpatient (RCR) | payer MEDICARE, SELFPAY ==
[2023-10-15 12:09] VITALS: BP 143/82; PULSE 71; TEMP 36.6; O2SAT 94
[2023-10-15] MEDS: 0.9 % SODIUM CHLORIDE 250 ML 10 ML IV (12:11)
[2023-10-15] MEDS: HYDROCORTISONE SODIUM SUCC PF 100 MG/2 ML VIAL 120 MG IVP (12:24)
[2023-10-15] MEDS: IGA AVG IV (12:26)
[2023-10-15] MEDS: IMMUNE GLOBUL IV (12:26)
[2023-10-15] MEDS: GLY IV (12:26)
[2023-10-15] MEDS: 0.9 % SODIUM CHLORIDE 250 ML 999 ML IV (14:47)
== END 2023-10-21 15:00 | disposition home or self-care (01) ==
LOC: INF 07:25
PROVIDERS: PCP Family Medicine
DX: D80.6 Antibody deficiency with near-normal immunoglobulins or with hyperimmunoglobulinemia (principal)
CPT/HCPCS: 96360; 96365; 96366; 96374; J1561; J1720

== ENCOUNTER 2023-10-26 16:08 | Emergency (ER) | payer MEDICARE, SELFPAY ==
[2023-10-26 16:13] VITALS: BP 155/98; PULSE 120; TEMP 36.7; O2SAT 95; BMI 25.8
--- NOTE | 2023-10-26 16:35 | XR_ITS ---
The [address] [address] Patient Name: VERNA NEELY MRN: [id number] date: 1960 Sex: M Assigned Patient Location: ER Current Patient Location: ED.MAIN Accession/Order Number: [id number] Exam Date: 10/26/2023 16:52 Report Date: 10/26/2023 17:35 At the request of: JOSSELIN KWON Procedure: XR chest 1V CHEST XRAY HISTORY: Chest pain COMPARISON: None. TECHNIQUE: 2 view chest is submitted for review. FINDINGS: The lungs are adequately expanded without evidence for acute infiltrate or effusion. The cardiac silhouette is enlarged. Pulmonary vascularity is unremarkable. Osseous structures are within expected limits for patients age. . XR/XR chest 1V IMPRESSION: Cardiomegaly Electronically authenticated by: ELANA BAKER Date: 10/26/2023 17:35
--- NOTE | 2023-10-26 16:35 | ECG_ITS ---
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
--- NOTE | 2023-10-26 16:42 | ED_ITS ---
HPI HPI - General Adult General Chief complaint: Fever Stated complaint: URTI Time Seen by Provider: 10/26/23 16:10 Source: patient Mode of arrival: Wheelchair Limitations: physical limitation History of Present Illness HPI narrative: 63 year old male presents to the ED for sinus congestion/drainage, cough, SOB, fatigue, chills. Onset was 10/22/23. He has hx COPD, asthma. He was evaluated at his pcp office today and advised to come to the ED. He has oxygen at home for prn use. He states solu-medrol causes tachycardia for him. Related Data Home Medications ?Medication ?Instructions ?Recorded ?Confirmed acetazolamide 500 mg 500 mg PO DAILY 10/15/23 10/15/23 capsule,extended release amitriptyline 100 mg tablet 100 mg PO DAILY 10/15/23 10/15/23 atorvastatin 40 mg tablet 40 mg PO DAILY 10/15/23 10/15/23 benralizumab 30 mg/mL subcutaneous 30 mg subcut PRN 10/15/23 10/15/23 auto-injector (Fasenra Pen) budesonide 160 mcg-glycopyr 9 2 inh inhalation DAILY 10/15/23 10/15/23 mcg-formot 4.8 mcg/actuation HFA inhaler (Breztri Aerosphere) celecoxib 200 mg capsule 200 mg PO DAILY 10/15/23 10/15/23 cyclobenzaprine 10 mg tablet 10 mg PO .q6 PRN spasms 10/15/23 10/15/23 duloxetine 20 mg capsule,delayed 20 mg PO DAILY 10/15/23 10/15/23 release folic acid 1 mg tablet 1 mg PO DAILY 10/15/23 10/15/23 hydrocodone 5 mg-acetaminophen 325 1 tab PO Q8H PRN pain 10/15/23 10/15/23 mg tablet losartan 25 mg tablet 25 mg PO DAILY 10/15/23 10/15/23 methenamine hippurate 1 gram tablet 1 g PO BID 10/15/23 10/15/23 omeprazole 40 mg capsule,delayed 40 mg PO DAILY 10/15/23 10/15/23 release spironolactone 50 mg tablet 50 mg PO DAILY 10/15/23 10/15/23 topiramate 100 mg tablet 100 mg PO DAILY 10/15/23 10/15/23 venlafaxine 150 mg 150 mg PO DAILY 10/15/23 10/15/23 capsule,extended release 24 hr venlafaxine 225 mg tablet,extended 225 mg PO DAILY 10/15/23 10/15/23 release 24 hr verapamil 120 mg tablet 120 mg PO DAILY 10/15/23 10/15/23 Previous Rx's ?Medication ?Instructions ?Recorded azithromycin 250 mg tablet See Rx Instructions PO .COMPLEX #6 10/26/23 (Zithromax Z-Marco) tabs benzonatate 100 mg capsule 100 mg PO QID PRN cough #30 caps 10/26/23 prednisone 10 mg tablet See Rx Instructions .Route 10/26/23 .COMPLEX #30 tabs Allergies Allergy/AdvReac Type Severity Reaction Status Date / Time baclofen Allergy Verified 10/26/23 16:16 ciprofloxacin [From Cipro] Allergy Verified 10/26/23 16:16 indomethacin [From Indocin] Allergy Verified 10/26/23 16:16 Penicillins Allergy Verified 10/26/23 16:16 propranolol Allergy Verified 10/26/23 16:16 Sulfa (Sulfonamide Allergy Verified 10/26/23 16:16 Antibiotics) Opioid HPI Opioid Management Most Recent Opioid Data: No Data to Display Review of Systems ROS Constitutional Reports: chills and fatigue; Denies: fever Ears, nose, mouth, and throat Reports: nasal discharge, nasal congestion and post nasal drip; Denies: throat pain, neck pain, ear pain or ear discharge Cardiovascular Denies: chest pain, edema or swelling of feet/ankles Respiratory Reports: shortness of breath and cough Gastrointestinal Denies: abdominal pain, nausea, vomiting or diarrhea Musculoskeletal Denies: back pain or neck pain Exam Constitutional Vital Signs, click to edit/add: Last Vital Signs Temp 98.0 F 10/26/23 16:13 Pulse 81 10/26/23 18:58 Resp 18 10/26/23 18:58 BP 152/86 H 10/26/23 18:58 Pulse Ox 98 10/26/23 18:58 O2 Del Method Room Air 10/26/23 18:01 Common normals: no apparent distress and oriented x3 General appearance: cooperative HENMT Nose: nasal discharge Mouth: oral and palatal mucosa normal and lip normal Throat: posterior oropharynx normal Eye Common normals: conjunctivae normal and no scleral icterus Neck & C-Spine Common normals: supple Chest Chest: symmetrical chest wall rise Respiratory Effort & inspection: able to speak in complete sentences Auscultation: diminished lung sounds Cardio Common normals: regular rhythm Rate: tachycardic Extremity Common normals: no pedal edema Neuro Common normals: oriented x3 Sensorium/orientation: awake and alert Course Vital Signs Vital signs: Vital Signs Temperature 98.0 F 10/26/23 16:13 Pulse Rate 120 H 10/26/23 16:13 Respiratory Rate 20 10/26/23 16:13 Blood Pressure 155/98 H 10/26/23 16:13 Pulse Oximetry 95 10/26/23 16:13 Temperature 98.0 F 10/26/23 16:13 Pulse Rate 81 10/26/23 18:58 Respiratory Rate 18 10/26/23 18:58 Blood Pressure 152/86 H 10/26/23 18:58 Pulse Oximetry 98 10/26/23 18:58 Oxygen Delivery Method Room Air 10/26/23 18:01 Medical Decision Making MDM Narrative Medical decision making narrative: Chest x-ray showed cardiomegaly; otherwise no acute findings. BUN was 24, creatinine 1.31. He was given IV fluids with improvement in his HR. He was given a dose of Decadron here in the ED. Findings were discussed with the patient. He has oxygen at home for prn use. He was comfortable being discharged home. Prescriptions were provided for Zithromax, Tessalon Perles, and prednisone. Follow up with pcp for a recheck, further evaluation and treatment. Differential Diagnosis Differential Diagnosis: COPD exacerbation, CHF exacerbation, pneumonia, viral illness Medical Records Medical records reviewed: Yes I reviewed the patient's medical records Lab Data Lab results reviewed: Yes I reviewed the patient's lab results Labs: Lab Results 10/26/23 Range/Units 16:25 WBC 8.1 (4.0-11.0) 10^3/uL RBC 5.83 (4.70-6.10) 10^6/uL Hgb 17.5 (14.0-18.0) g/dL Hct 51.8 (42.0-54.0) % MCV 88.9 (80.0-94.0) fL MCH 30.0 (25.9-34.0) pg MCHC 33.8 (29.9-35.2) g/dL RDW 13.7 (11.0-15.0) % Plt Count 227 (150-450) 10^3/uL MPV 10.0 (9.5-13.5) fL Neut % (Auto) 79.8 H (43.0-75.0) % Lymph % (Auto) 14.4 L (20.5-60.0) % [place] % (Auto) 4.5 (1.7-12.0) % Eos % (Auto) 0.1 L (0.9-7.0) % Baso % (Auto) 1.0 (0.2-2.0) % Neut # (Auto) 6.5 (1.4-6.5) 10^3/uL Lymph # (Auto) 1.2 (1.2-3.8) 10^3/uL [place] # (Auto) 0.4 (0.3-0.8) 10^3/uL Eos # (Auto) 0.0 (0.0-0.7) 10^3/uL Baso # (Auto) 0.1 (0.0-0.1) 10^3/uL Abs Immat Gran (auto) 0.02 (0.00-0.03) 10^3/uL Imm/Tot Granulo (auto) 0.2 (0.0-0.5) % Sodium 136 (136-145) mmol/L Potassium 3.1 L (3.5-5.1) mmol/L Chloride 100 (98-107) mmol/L Carbon Dioxide 22.3 (21.0-32.0) mmol/L Anion Gap 16.8 BUN 24.0 H (7.0-18.0) mg/dL Creatinine 1.31 H (0.70-1.30) mg/dL Est GFR ( Amer) >60 (>=60) Est GFR (Non-Af Amer) 55 L (>=60) BUN/Creatinine Ratio 18.3 Glucose 192 H (74-106) mg/dL Calcium 9.0 (8.5-10.1) mg/dL Total Bilirubin 0.7 (0.2-1.0) mg/dL AST 19 (15-37) U/L ALT 17 (16-63) U/L Alkaline Phosphatase 140 H (46-116) U/L Troponin I High Sens 59.2 (4.0-76.1) pg/mL NT-Pro-B Natriuret Pep 273.0 (<=900.0) pg/mL Total Protein 8.7 H (6.4-8.2) g/dL Albumin 3.9 (3.4-5.0) g/dL Globulin 4.8 g/dL Albumin/Globulin Ratio 0.8 Imaging Data Chest x-ray: Attestation: I have reviewed the pertinent imaging results. Radiologist's impression: ITS Impressions Chest X-Ray 10/26/23 16:35 IMPRESSION: Cardiomegaly Electronically authenticated by: ELANA BAKER Date: 10/26/2023 17:35 ECG Data Attestation: ?I have reviewed the pertinent ECG results. (EKG was reviewed by the attending physician. It showed sinus tachycardia at a rate of [address] segment changes. QTc 395 ms.) Interpretation: Measurements Intervals [place] Rate: 102 P: 27 VA: 146 QRS: -11 QRSD: 90 T: -50 QT: 336 QTc: 395 Interpretive Statements 1120 Sinus tachycardia 5234 Left ventricular hypertrophy with repolarization abnormality 9150 abnormal ECG No previous ECG available for comparison Discharge Plan Discharge Stand Alone Forms: Portal Instructions Chief Complaint: Fever Clinical Impression: COPD exacerbation Patient Disposition: Home, Self-Care Time of Disposition Decision: 18:58 Condition: Good Mode of Transportation: Private Vehicle Prescriptions / Home Meds: New azithromycin [Zithromax Z-Marco] 250 mg tablet See Rx Instructions .ROUTE .COMPLEX Qty: 6 0RF Rx Instructions: For 250 mg dose pack: take 500 mg today (day 1), then 250 mg for 4 days (days 2-5) prednisone 10 mg tablet See Rx Instructions .ROUTE .COMPLEX Qty: 30 0RF Rx Instructions: Take 5 tablets on days 1-2, 4 tabs on days 3-4, 3 tabs on days 5-6, 2 tabs on days 7-8, 1 tab on days 9-10. benzonatate 100 mg capsule 100 mg PO QID PRN (Reason: cough) Qty: 30 0RF No Action acetazolamide 500 mg capsule, extended release 500 mg PO DAILY Patient Comments: during y season amitriptyline 100 mg tablet 100 mg PO DAILY atorvastatin 40 mg tablet 40 mg PO DAILY Fasenra Pen 30 mg/mL auto-injector 30 mg SUBCUT PRN Breztri Aerosphere 160-9-4.8 mcg/actuation HFA aerosol inhaler 2 inh INHALATION DAILY celecoxib 200 mg capsule 200 mg PO DAILY cyclobenzaprine 10 mg tablet 10 mg PO .q6 PRN (Reason: spasms) duloxetine 20 mg capsule,delayed release(DR/EC) 20 mg PO DAILY folic acid 1 mg tablet 1 mg PO DAILY hydrocodone-acetaminophen 5-325 mg tablet 1 tab PO Q8H PRN (Reason: pain) losartan 25 mg tablet 25 mg PO DAILY methenamine hippurate 1 gram tablet 1 g PO BID omeprazole 40 mg capsule,delayed release(DR/EC) 40 mg PO DAILY spironolactone 50 mg tablet 50 mg PO DAILY topiramate 100 mg tablet 100 mg PO DAILY venlafaxine 150 mg capsule,extended release 24hr 150 mg PO DAILY venlafaxine 225 mg tablet extended release 24hr 225 mg PO DAILY verapamil 120 mg tablet 120 mg PO DAILY Print Language: Lithuanian Instructions: COPD (Chronic Obstructive Pulmonary Disease) (ED) Additional Instructions: Return to the ER for new or worsening symptoms. Referrals: Raquel Rayo MD [Primary Care Provider] - 1 week Discharge Date/Time: 10/26/23 19:18
[2023-10-26 16:54] LABS: Basophils Absolute Auto 0.1 10^3/uL (0.0-0.1); Eosinophils Percent Auto 0.1 % (0.9-7.0); Hematocrit 51.8 % (42.0-54.0); Hemoglobin 17.5 g/dL (14.0-18.0); Immature Granulocytes Abs Auto 0.02 10^3/uL (0.00-0.03); Immature Granulocytes Pct Auto 0.2 % (0.0-0.5); Lymphocytes Absolute Auto 1.2 10^3/uL (1.2-3.8); Lymphocytes Percent Auto 14.4 % (20.5-60.0); Mean Corpuscular HGB Conc 33.8 g/dL (29.9-35.2); Mean Corpuscular Volume 88.9 fL (80.0-94.0); Monocytes Absolute Auto 0.4 10^3/uL (0.3-0.8); Monocytes Percent Auto 4.5 % (1.7-12.0); Neutrophils Absolute Auto 6.5 10^3/uL (1.4-6.5); Neutrophils Percent Auto 79.8 % (43.0-75.0); Platelet Count 227 10^3/uL (150-450); Red Blood Count 5.83 10^6/uL (4.70-6.10); Red Cell Distribution Width 13.7 % (11.0-15.0); White Blood Count 8.1 10^3/uL (4.0-11.0)
[2023-10-26] MEDS: DEXAMETHASONE SOD PHOS 10 MG/ML VIAL IV (16:54)
[2023-10-26] MEDS: 0.9 % SODIUM CHLORIDE 1,000 ML 100 ML IV (16:54)
[2023-10-26 17:00] LABS: Alanine Aminotransferase 17 U/L (16-63); Albumin Globulin Ratio 0.8; Albumin Level 3.9 g/dL (3.4-5.0); Alkaline Phosphatase 140 U/L (46-116); Anion Gap 16.8; Aspartate Amino Transferase 19 U/L (15-37); BUN Creatinine Ratio 18.3; Bilirubin Total 0.7 mg/dL (0.2-1.0); Carbon Dioxide 22.3 mmol/L (21.0-32.0); Chloride 100 mmol/L (98-107); Estimated GFR (African America >60 (>=60); Estimated GFR (Non-African Ame 55 (>=60); Globulin 4.8 g/dL; Glucose 192 mg/dL (74-106); Potassium 3.1 mmol/L (3.5-5.1); Sodium 136 mmol/L (136-145); Total Protein 8.7 g/dL (6.4-8.2)
[2023-10-26 17:06] LABS: Troponin I High Sensitivity 59.2 pg/mL (4.0-76.1)
[2023-10-26] MEDS: 0.9 % SODIUM CHLORIDE 500 ML 1000 ML IV (17:58)
[2023-10-26 18:01] VITALS: BP 118/90; PULSE 88; O2SAT 98
[2023-10-26 18:58] VITALS: BP 152/86; PULSE 81; O2SAT 98
== END 2023-10-26 19:18 | disposition home or self-care (01) ==
PROVIDERS: Nurse Practitioner Family; Emergency Provider Emergency Medicine; PCP Family Medicine
DX: J44.1 Chronic obstructive pulmonary disease with (acute) exacerbation (principal); R06.02 Shortness of breath
CPT/HCPCS: 36415; 71045; 80053; 83880; 84484; 85025; 93005; 96374; 99285; J1100

== ENCOUNTER 2023-10-30 13:35 | Observation (INO) | payer MEDICARE, SELFPAY ==
[2023-10-30] VITALS (8 sets, daily range): BP systolic 153–170; BP diastolic 94–113; PULSE 96–124; TEMP 36.3–36.7; O2SAT 92–96; BMI 24.7; BMI 25.1
--- NOTE | 2023-10-30 14:17 | ECG_ITS ---
[facility] Test Date: 2023-10-30 Pat Name: VERNA NEELY Department: Room: - Gender: Male Blind Eyeletter: : 1960 Requested By: RACHEL VEGA Order Number: [id number] Reading MD: LIZY JIMENEZ Measurements Intervals [place] Rate: 105 P: 25 PA: 132 QRS: -6 QRSD: 90 T: 173 QT: 324 QTc: 385 Interpretive Statements 1120 Sinus tachycardia 5234 Left ventricular hypertrophy with repolarization abnormality 9150 abnormal ECG Compared to ECG 10/26/2023 16:47:54 Possible ischemia no longer present Electronically Signed On 10-31-2023 7:41:05 EDT by LIZY JIMENEZ
--- NOTE | 2023-10-30 14:21 | CT_ITS ---
[address] [address] Patient Name: VERNA NEELY MRN: [id number] date: 1960 Sex: M Assigned Patient Location: ER Current Patient Location: Accession/Order Number: [id number] Exam Date: 10/30/2023 14:45 Report Date: 10/30/2023 15:19 At the request of: KENNETH RODRIGUEZ Procedure: CT angio chest EXAMINATION: CT angio chest HISTORY: Shortness of breath COMPARISON: 11/02/2020 TECHNIQUE: Multi-planar CT images were created with IV contrast. Axial, Coronal, and Sagittal images. Dose reduction techniques were achieved by using automated exposure control and/or adjustment of mA and/or kV according to patient size and/or use of iterative reconstruction technique. FINDINGS: LUNGS: Mild groundglass infiltrates. No significant pulmonary nodule or mass. PLEURA: No mass, effusion, or pneumothorax. VASCULATURE: Normal postcontrast opacification with no filling defect to suggest a pulmonary embolus KERRY: No mass or adenopathy. MEDIASTINUM: No mass or adenopathy. CARDIAC: No enlargement, pericardial thickening, or significant calcification. AORTA: No aneurysm or dissection. CHEST WALL: No mass or axillary adenopathy. BONES: No bone lesion or fracture. LIMITED ABDOMEN: No suspicious findings. Limited images of the upper abdomen. OTHER: Negative. CT/CT angio chest IMPRESSION: No central pulmonary thromboembolic disease Minimal groundglass infiltrates, nonspecific Electronically authenticated by: RICH ROONEY Date: 10/30/2023 15:19
--- NOTE | 2023-10-30 14:22 | ED.GENADUL1 ---
HPI HPI - General Adult General Chief complaint: Shortness of Breath/Dyspnea Stated complaint: SHORTNESS OF BREATH Time Seen by Provider: 10/30/23 14:08 Source: patient Mode of arrival: Wheelchair Limitations: no limitations History of Present Illness HPI narrative: Patient is a 63-year-old male who presents to the emergency department for increasing shortness of breath. Patient has a history of COPD and immune deficiency. He was seen in this emergency department on Thursday for increased shortness of breath and oxygen requirement at home. He had labs, chest x-ray and was discharged home with antibiotics and steroids which he has been taking. He states he was feeling better but now in the last several days despite taking the medications he is having worsened Dyspnea. He has no sputum production, leg swelling, severe chest pain. No fevers. He has oxygen at home that he wears by nasal cannula 2.5 L as needed and at nighttime. His last breathing treatment was several hours ago. Related Data Home Medications ?Medication ?Instructions ?Recorded ?Confirmed acetazolamide 500 mg 500 mg PO DAILY 10/15/23 10/30/23 capsule,extended release amitriptyline 100 mg tablet 100 mg PO DAILY 10/15/23 10/30/23 atorvastatin 40 mg tablet 40 mg PO DAILY 10/15/23 10/30/23 budesonide 160 mcg-glycopyr 9 2 inh inhalation DAILY 10/15/23 10/30/23 mcg-formot 4.8 mcg/actuation HFA inhaler (Breztri Aerosphere) celecoxib 200 mg capsule 400 mg PO Q12H 10/15/23 10/30/23 cyclobenzaprine 10 mg tablet 10 mg PO .q6 PRN spasms 10/15/23 10/30/23 folic acid 1 mg tablet 1 mg PO DAILY 10/15/23 10/30/23 hydrocodone 5 mg-acetaminophen 325 1 tab PO Q8H PRN pain 10/15/23 10/30/23 mg tablet losartan 25 mg tablet 25 mg PO DAILY 10/15/23 10/30/23 methenamine hippurate 1 gram tablet 1 g PO BID 10/15/23 10/30/23 omeprazole 40 mg capsule,delayed 40 mg PO BID 10/15/23 10/30/23 release spironolactone 50 mg tablet 50 mg PO DAILY 10/15/23 10/30/23 topiramate 100 mg tablet 100 mg PO DAILY 10/15/23 10/30/23 venlafaxine 150 mg 300 mg PO DAILY 10/15/23 10/30/23 capsule,extended release 24 hr verapamil 120 mg tablet 120 mg PO DAILY 10/15/23 10/30/23 amlodipine 5 mg tablet 5 mg PO DAILY 10/30/23 10/30/23 biotin 1 mg tablet 1 mg PO DAILY 10/30/23 10/30/23 clonidine HCl 0.1 mg tablet 0.1 mg PO BID 10/30/23 10/30/23 cyanocobalamin (vitamin B-12) 1,000 mcg PO DAILY 10/30/23 10/30/23 1,000 mcg capsule fluticasone propionate 50 2 spray intranasal DAILY PRN nasal 10/30/23 10/30/23 mcg/actuation nasal congestion spray,suspension potassium chloride 20 mEq 20 meq PO BID 10/30/23 10/30/23 tablet,extended release(part/cryst) (Klor-Con M) topiramate 50 mg tablet 50 mg PO TID 10/30/23 10/30/23 Previous Rx's ?Medication ?Instructions ?Recorded benzonatate 100 mg capsule 100 mg PO QID PRN cough #30 caps 10/26/23 prednisone 10 mg tablet See Rx Instructions .Route 10/26/23 .COMPLEX #30 tabs Allergies Allergy/AdvReac Type Severity Reaction Status Date / Time baclofen Allergy Verified 10/26/23 16:16 ciprofloxacin [From Cipro] Allergy Verified 10/26/23 16:16 indomethacin [From Indocin] Allergy Verified 10/26/23 16:16 Penicillins Allergy Verified 10/26/23 16:16 propranolol Allergy Verified 10/26/23 16:16 Sulfa (Sulfonamide Allergy Verified 10/26/23 16:16 Antibiotics) Opioid HPI Opioid Management Most Recent Opioid Data: Last Pain Assessment 10/30/23 20:00 Last ORT Total Score 1 10/30/23 17:52 Last ORT Risk Category Low Risk 10/30/23 17:52 Review of Systems ROS Constitutional Denies: fever or chills Ears, nose, mouth, and throat Denies: throat pain or nasal congestion Cardiovascular Denies: chest pain Respiratory Reports: shortness of breath; Denies: cough Gastrointestinal Denies: abdominal pain, nausea or vomiting Musculoskeletal Denies: back pain Integumentary/Breast Denies: rash Neurological Denies: headache Hematologic/Lymphatic Denies: easy bruising or easy bleeding PFSH PFSH Medical History (Updated 10/30/23 @ 18:02 by Alina Rose) Stroke ?I63.9 - Cerebral infarction, unspecified (ICD-10) Depression ?F32.A - Depression, unspecified (ICD-10) Chronic migraine 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 (ICD-10) Asthma ?J45.909 - Unspecified asthma, uncomplicated (ICD-10) ILD (interstitial lung disease) ?J84.9 - Interstitial pulmonary disease, unspecified (ICD-10) Surgical History (Updated 10/30/23 @ 18:04 by Alina Rose) H/O laminectomy ?Z98.890 - Other specified postprocedural states (ICD-10) History of hip replacement, total ?Z96.649 - Presence of unspecified artificial hip joint (ICD-10) H/O: knee surgery ?Z98.890 - Other specified postprocedural states (ICD-10) Family History (Updated 10/30/23 @ 18:06 by Alina Rose) Father Family history of CHF (congestive heart failure) Family history of cancer Family history of myocardial infarction Mother Family history of COPD (chronic obstructive pulmonary disease) Family history of cancer Family history of hypertension Family history of myocardial infarction Family history of stroke Brother Family history of cancer Uncle Family history of cancer Aunt Family history of diabetes mellitus Social History (Updated 10/30/23 @ 18:13 by Alina Rose) Within the past year, how often did you have a drink containing alcohol: never Score interpretation: A score less than 4 is consistent with normal alcohol consumption. Smoking status: Never smoker Non-prescribed substance use: denies use Previous occupational history: retired Highest level of school completed/degree received: Master's degree Are you now , , , , never or living with a partner: In a typical week, how many times do you talk on the telephone with family, friends, or neighbors: twice per week How often do you get together with friends or relatives: twice per week How often do you attend gnosticist or jehovah's witness services: 4 or more times per year Do you belong to any clubs or organizations such as gnosticist groups unions, fraternal or athletic groups, or school groups: yes Total score: 3 Score interpretation: A score of greater than or equal to 2 indicates the lowest level of social isolation. Little interest or pleasure in doing things: not at all Feeling down, depressed, or hopeless: not at all Feel stressed/tense/nervous/anxious/difficulty sleeping: to some extent Exam Narrative Exam Narrative: Gen.: Awake, alert, in no distress Head: Normocephalic, atraumatic ENT: Moist mucous membranes Respiratory: No respiratory distress, diminished lungs globally Cardio: Regular rate and rhythm Gastrointestinal: Abdomen is soft, nondistended and nontender to palpation Extremities: Moves extremities equally, no pedal edema Psych: Normal mood and affect Neuro: No focal neuro deficit Skin: Warm, dry, intact Constitutional Vital Signs, click to edit/add: Last Vital Signs Temp 97.4 F L 10/30/23 17:52 Pulse 113 H 10/30/23 20:00 Resp 17 10/30/23 20:00 BP 168/113 H 10/30/23 17:52 Pulse Ox 92 L 10/30/23 17:52 O2 Del Method Room Air 10/30/23 17:52 Course Vital Signs Vital signs: Vital Signs Temperature 98.1 F 10/30/23 13:44 Pulse Rate 124 H 10/30/23 13:44 Respiratory Rate 24 H 10/30/23 13:44 Blood Pressure 170/110 H 10/30/23 13:44 Pulse Oximetry 92 L 10/30/23 13:44 Oxygen Delivery Method Room Air 10/30/23 13:44 Temperature 97.4 F L 10/30/23 17:52 Pulse Rate 113 H 10/30/23 20:00 Respiratory Rate 17 10/30/23 20:00 Blood Pressure 168/113 H 10/30/23 17:52 Pulse Oximetry 92 L 10/30/23 17:52 Oxygen Delivery Method Room Air 10/30/23 17:52 Medical Decision Making MDM Narrative Medical decision making narrative: Previous documentation shows that the patient was prescribed azithromycin, Tessalon Perles and prednisone. He has stable vital signs in the ER and he does have home oxygen, however he reports increased difficulty breathing today. He was given breathing treatments, IV fluids. CT angio of the chest with groundglass opacities, COVID test is negative. The remainder of the labs are stable Other than a potassium of 2.8. Patient was given oral potassium in the ER although he did feel nauseous and was given additional Zofran. I had an extensive discussion with the patient multiple times About the risks and benefits of outpatient treatment versus inpatient treatment for his symptoms. Patient feels he should stay in the hospital at this time. He was given IV doxycycline due to multiple antibiotic allergies. He was given an albuterol breathing treatment with improvement. He is stable on room air although he continues to have increased work of breathing and tachypnea. Stable at time of admission to Dr. Deshpande for hospitalist service SUPERVISED APC VISIT, PHYSICIAN ATTESTATION: Based on the medical record the care appears appropriate. ? Medical Records Medical records reviewed: Yes I reviewed the patient's medical records Lab Data Lab results reviewed: Yes I reviewed the patient's lab results Labs: Lab Results 10/30/23 10/30/23 10/30/23 Range/Units 14:10 14:33 15:31 WBC 9.0 (4.0-11.0) 10^3/uL RBC 5.80 (4.70-6.10) 10^6/uL Hgb 17.4 (14.0-18.0) g/dL Hct 49.6 (42.0-54.0) % MCV 85.5 (80.0-94.0) fL MCH 30.0 (25.9-34.0) pg MCHC 35.1 (29.9-35.2) g/dL RDW 13.2 (11.0-15.0) % Plt Count 253 (150-450) 10^3/uL MPV 9.9 (9.5-13.5) fL Neut % (Auto) 78.6 H (43.0-75.0) % Lymph % (Auto) 15.0 L (20.5-60.0) % [place] % (Auto) 5.4 (1.7-12.0) % Eos % (Auto) 0.0 L (0.9-7.0) % Baso % (Auto) 0.6 (0.2-2.0) % Neut # (Auto) 7.0 H (1.4-6.5) 10^3/uL Lymph # (Auto) 1.3 (1.2-3.8) 10^3/uL [place] # (Auto) 0.5 (0.3-0.8) 10^3/uL Eos # (Auto) 0.0 (0.0-0.7) 10^3/uL Baso # (Auto) 0.1 (0.0-0.1) 10^3/uL Abs Immat Gran (auto) 0.04 H (0.00-0.03) 10^3/uL Imm/Tot Granulo (auto) 0.4 (0.0-0.5) % VBG pH 7.482 H (7.330-7.430) VBG pCO2 25.6 L (40.0-52.0) mmHg Sodium 133 L (136-145) mmol/L Potassium 2.8 L* (3.5-5.1) mmol/L Chloride 98 (98-107) mmol/L Carbon Dioxide 20.5 L (21.0-32.0) mmol/L Anion Gap 17.3 BUN 17.0 (7.0-18.0) mg/dL Creatinine 1.17 (0.70-1.30) mg/dL Est GFR ( Amer) >60 (>=60) Est GFR (Non-Af Amer) >60 (>=60) BUN/Creatinine Ratio 14.5 Glucose 229 H (74-106) mg/dL Lactate 2.6 H* (0.4-2.0) mmol/L Calcium 8.9 (8.5-10.1) mg/dL Total Bilirubin 0.8 (0.2-1.0) mg/dL AST 31 (15-37) U/L ALT 16 (16-63) U/L Alkaline Phosphatase 118 H (46-116) U/L Troponin I High Sens 61.8 (4.0-76.1) pg/mL NT-Pro-B Natriuret Pep 686.0 (<=900.0) pg/mL Total Protein 7.9 (6.4-8.2) g/dL Albumin 3.6 (3.4-5.0) g/dL Globulin 4.3 g/dL Albumin/Globulin Ratio 0.8 Procalcitonin <0.05 (0.00-0.50) ng/mL SARS-CoV-2 Ag (CV2AG) Negative (NEGATIVE) 10/30/23 Range/Units 17:39 WBC (4.0-11.0) 10^3/uL RBC (4.70-6.10) 10^6/uL Hgb (14.0-18.0) g/dL Hct (42.0-54.0) % MCV (80.0-94.0) fL MCH (25.9-34.0) pg MCHC (29.9-35.2) g/dL RDW (11.0-15.0) % Plt Count (150-450) 10^3/uL MPV (9.5-13.5) fL Neut % (Auto) (43.0-75.0) % Lymph % (Auto) (20.5-60.0) % [place] % (Auto) (1.7-12.0) % Eos % (Auto) (0.9-7.0) % Baso % (Auto) (0.2-2.0) % Neut # (Auto) (1.4-6.5) 10^3/uL Lymph # (Auto) (1.2-3.8) 10^3/uL [place] # (Auto) (0.3-0.8) 10^3/uL Eos # (Auto) (0.0-0.7) 10^3/uL Baso # (Auto) (0.0-0.1) 10^3/uL Abs Immat Gran (auto) (0.00-0.03) 10^3/uL Imm/Tot Granulo (auto) (0.0-0.5) % VBG pH (7.330-7.430) VBG pCO2 (40.0-52.0) mmHg Sodium (136-145) mmol/L Potassium (3.5-5.1) mmol/L Chloride (98-107) mmol/L Carbon Dioxide (21.0-32.0) mmol/L Anion Gap BUN (7.0-18.0) mg/dL Creatinine (0.70-1.30) mg/dL Est GFR ( Amer) (>=60) Est GFR (Non-Af Amer) (>=60) BUN/Creatinine Ratio Glucose (74-106) mg/dL Lactate 2.9 H* (0.4-2.0) mmol/L Calcium (8.5-10.1) mg/dL Total Bilirubin (0.2-1.0) mg/dL AST (15-37) U/L ALT (16-63) U/L Alkaline Phosphatase (46-116) U/L Troponin I High Sens (4.0-76.1) pg/mL NT-Pro-B Natriuret Pep (<=900.0) pg/mL Total Protein (6.4-8.2) g/dL Albumin (3.4-5.0) g/dL Globulin g/dL Albumin/Globulin Ratio Procalcitonin (0.00-0.50) ng/mL SARS-CoV-2 Ag (CV2AG) (NEGATIVE) Imaging Data CT scan - chest: Attestation: I have reviewed the pertinent imaging results. Radiologist's impression: ITS Impressions Chest CTA 10/30/23 14:21 IMPRESSION: No central pulmonary thromboembolic disease Minimal groundglass infiltrates, nonspecific Electronically authenticated by: RICH ROONEY Date: 10/30/2023 15:19 ECG Data Attestation: I personally reviewed and interpreted this ECG as follows: (Sinus tachycardia at a rate of 105, no acute ST elevation or ectopy. EKG reviewed by attending physician) Discharge Plan Discharge Chief Complaint: Shortness of Breath/Dyspnea Clinical Impression: COPD exacerbation, Shortness of breath Patient Disposition: Admitted as Observation Time of Disposition Decision: 16:53 Condition: Good Discharge Date/Time: 10/30/23 17:45
[2023-10-30 14:25] LABS: Basophils Absolute Auto 0.1 10^3/uL (0.0-0.1); Basophils Percent Auto 0.6 % (0.2-2.0); Hematocrit 49.6 % (42.0-54.0); Hemoglobin 17.4 g/dL (14.0-18.0); Immature Granulocytes Abs Auto 0.04 10^3/uL (0.00-0.03); Immature Granulocytes Pct Auto 0.4 % (0.0-0.5); Lymphocytes Absolute Auto 1.3 10^3/uL (1.2-3.8); Mean Corpuscular HGB Conc 35.1 g/dL (29.9-35.2); Mean Corpuscular Volume 85.5 fL (80.0-94.0); Mean Platelet Volume 9.9 fL (9.5-13.5); Monocytes Absolute Auto 0.5 10^3/uL (0.3-0.8); Monocytes Percent Auto 5.4 % (1.7-12.0); Neutrophils Percent Auto 78.6 % (43.0-75.0); Platelet Count 253 10^3/uL (150-450); Red Cell Distribution Width 13.2 % (11.0-15.0)
[2023-10-30 14:49] LABS: Alanine Aminotransferase 16 U/L (16-63); Albumin Globulin Ratio 0.8; Albumin Level 3.6 g/dL (3.4-5.0); Alkaline Phosphatase 118 U/L (46-116); Anion Gap 17.3; Aspartate Amino Transferase 31 U/L (15-37); BUN Creatinine Ratio 14.5; Bilirubin Total 0.8 mg/dL (0.2-1.0); Calcium 8.9 mg/dL (8.5-10.1); Carbon Dioxide 20.5 mmol/L (21.0-32.0); Chloride 98 mmol/L (98-107); Estimated GFR (African America >60 (>=60); Estimated GFR (Non-African Ame >60 (>=60); Globulin 4.3 g/dL; Glucose 229 mg/dL (74-106); Sodium 133 mmol/L (136-145); Total Protein 7.9 g/dL (6.4-8.2); Troponin I High Sensitivity 61.8 pg/mL (4.0-76.1)
[2023-10-30 14:50] LABS: Potassium 2.8 mmol/L (3.5-5.1)
[2023-10-30 14:51] LABS: PCO2 VBG 25.6 mmHg (40.0-52.0); pH VBG 7.482 (7.330-7.430)
[2023-10-30 15:14] LABS: Lactate/Lactic Acid 2.6 mmol/L (0.4-2.0)
[2023-10-30 15:23] LABS: PROCALCITONIN <0.05 ng/mL (0.00-0.50)
[2023-10-30 16:05] LABS: Internal Control Within Normal Limits; SARS-CoV-2 Ag NEGATIVE (NEGATIVE)
[2023-10-30] MEDS: 0.9 % SODIUM CHLORIDE 1,000 ML 1000 ML IV (16:07)
[2023-10-30] MEDS: POTASSIUM BICARBONATE/CIT 25 MEQ TABLET EFF 50 MEQ PO (16:08)
[2023-10-30] MEDS: ALBUTEROL SULFATE 2.5 MG/3 ML VIAL NEB IH (16:17)
[2023-10-30] MEDS: ONDANSETRON PF 4 MG/2 ML VIAL IV (17:24)
[2023-10-30] MEDS: DOXYCYCLINE HYCLATE 100 MG in 0.9 % SODIUM CHLORIDE 100 ML IV (17:24)
--- NOTE | 2023-10-30 17:47 | P.HP_ITS ---
HPI H&P: HPI History of Present Illness Chief complaint: SHORTNESS OF BREATH COPD HYPOKALEMIA Narrative: Pt presented to the ER for second time this week for acute exacerbation copd - treaed wtih prednisone and z-pack - not getting better When seen on med surg floor - resting comfortbably - some dyspnea -coputh during the exam Opioid HPI Opioid Management Most Recent Pain and Opioid Data: No Data to Display Meds Home Medications and Allergies Home Medications ?Medication ?Instructions ?Recorded ?Confirmed ?Type acetazolamide 500 mg 500 mg PO DAILY 10/15/23 10/15/23 History capsule,extended release amitriptyline 100 mg tablet 100 mg PO DAILY 10/15/23 10/15/23 History atorvastatin 40 mg tablet 40 mg PO DAILY 10/15/23 10/15/23 History benralizumab 30 mg/mL subcutaneous 30 mg subcut PRN 10/15/23 10/15/23 History auto-injector (Fasenra Pen) budesonide 160 mcg-glycopyr 9 2 inh inhalation DAILY 10/15/23 10/15/23 History mcg-formot 4.8 mcg/actuation HFA inhaler (Breztri Aerosphere) celecoxib 200 mg capsule 200 mg PO DAILY 10/15/23 10/15/23 History cyclobenzaprine 10 mg tablet 10 mg PO .q6 PRN spasms 10/15/23 10/15/23 History duloxetine 20 mg capsule,delayed 20 mg PO DAILY 10/15/23 10/15/23 History release folic acid 1 mg tablet 1 mg PO DAILY 10/15/23 10/15/23 History hydrocodone 5 mg-acetaminophen 325 1 tab PO Q8H PRN pain 10/15/23 10/15/23 History mg tablet losartan 25 mg tablet 25 mg PO DAILY 10/15/23 10/15/23 History methenamine hippurate 1 gram tablet 1 g PO BID 10/15/23 10/15/23 History omeprazole 40 mg capsule,delayed 40 mg PO DAILY 10/15/23 10/15/23 History release spironolactone 50 mg tablet 50 mg PO DAILY 10/15/23 10/15/23 History topiramate 100 mg tablet 100 mg PO DAILY 10/15/23 10/15/23 History venlafaxine 150 mg 150 mg PO DAILY 10/15/23 10/15/23 History capsule,extended release 24 hr venlafaxine 225 mg tablet,extended 225 mg PO DAILY 10/15/23 10/15/23 History release 24 hr verapamil 120 mg tablet 120 mg PO DAILY 10/15/23 10/15/23 History azithromycin 250 mg tablet See Rx Instructions PO .COMPLEX #6 10/26/23 Rx (Zithromax Z-Marco) tabs benzonatate 100 mg capsule 100 mg PO QID PRN cough #30 caps 10/26/23 Rx prednisone 10 mg tablet See Rx Instructions .Route 10/26/23 Rx .COMPLEX #30 tabs Allergies Allergy/AdvReac Type Severity Reaction Status Date / Time baclofen Allergy Verified 10/26/23 16:16 ciprofloxacin [From Cipro] Allergy Verified 10/26/23 16:16 indomethacin [From Indocin] Allergy Verified 10/26/23 16:16 Penicillins Allergy Verified 10/26/23 16:16 propranolol Allergy Verified 10/26/23 16:16 Sulfa (Sulfonamide Allergy Verified 10/26/23 16:16 Antibiotics) Exam Constitutional Vital Signs, click to edit/add: Last Vital Signs Temp 98.1 F 10/30/23 13:44 Pulse 106 H 10/30/23 16:18 Resp 24 H 10/30/23 13:44 BP 170/110 H 10/30/23 13:44 Pulse Ox 96 10/30/23 16:18 O2 Del Method Room Air 10/30/23 16:18 Documenting provider has reviewed patient's vital signs: yes Common normals: no apparent distress Chest Common normals: inspection of chest normal Respiratory Common normals: no retractions; abnormal respiratory effort Effort & inspection: tachypneic and actively coughing Auscultation: rhonchi, wheezes and diminished lung sounds Cardio Common normals: regular rhythm; irregular rate Rate: tachycardic GI Common normals: Normal to inspection, nondistended, normoactive bowel sounds present Results Labs Labs: Short CBC 10/30/23 Range/Units 14:10 WBC 9.0 (4.0-11.0) 10^3/uL Hgb 17.4 (14.0-18.0) g/dL Hct 49.6 (42.0-54.0) % Plt Count 253 (150-450) 10^3/uL BMP 10/30/23 14:10 Sodium 133 L Potassium 2.8 L* Chloride 98 Carbon Dioxide 20.5 L BUN 17.0 Creatinine 1.17 Glucose 229 H Calcium 8.9 Liver Function 10/30/23 Range/Units 14:10 Total Bilirubin 0.8 (0.2-1.0) mg/dL AST 31 (15-37) U/L ALT 16 (16-63) U/L Alkaline Phosphatase 118 H (46-116) U/L Albumin 3.6 (3.4-5.0) g/dL ABG ABG results: 10/30/23 14:33 VBG pH 7.482 H VBG pCO2 25.6 L Assessment and Plan Assessment and Plan (1) Shortness of breath: (2) COPD exacerbation: Plan Tachypnea, tachycardia, resp distress, due to failed out-pt treatment of copd - steroids, aeresols, IV AB - lower dose steroids due to the DM hypokalemia - supplement Uncontrolled Hypertension - keep same meds - prn hydralazine Depression - continue with home meds Admission Status: Curently not hyopoxic , medically neccessary treatment may span one midnight - observation status
[2023-10-30 18:24] LABS: Lactate/Lactic Acid 2.9 mmol/L (0.4-2.0)
[2023-10-30 20:15] LABS: Glucometer 126 mg/dL (74-106)
[2023-10-30] MEDS: CEFTRIAXONE 1,000 MG in 0.9 % SODIUM CHLORIDE 50 ML 100 MG IV (20:49)
[2023-10-30] MEDS: METHYLPREDNISOLONE SOD SUCC PF 125 MG/2 ML VIAL 40 MG IVP (20:49)
[2023-10-30] MEDS: POTASSIUM CHLORIDE 40 MEQ in 0.9 % SODIUM CHLORIDE 250 ML 67.5 MEQ IV (20:51)
[2023-10-30 20:54] LABS: Lactate/Lactic Acid 2.2 mmol/L (0.4-2.0)
[2023-10-30] MEDS: LEVALBUTEROL HCL 0.63 MG/3 ML VIAL.NEB 0.630000000000000004 MG IH (23:03)
[2023-10-30] MEDS: BUDESONIDE 0.5 MG/2 ML AMPULE NEB IH (23:03)
[2023-10-30] MEDS: IPRATROPIUM BROMIDE 0.5 MG/2.5 ML VIAL.NEB IH (23:03)
[2023-10-30] MEDS: 0.9 % SODIUM CHLORIDE 500 ML 50 ML IV (23:20)
[2023-10-31] VITALS (9 sets, daily range): BP systolic 150–170; BP diastolic 88–92; PULSE 67–110; TEMP 36.3–36.7; O2SAT 92–97
[2023-10-31] MEDS: METHYLPREDNISOLONE SOD SUCC PF 125 MG/2 ML VIAL 40 MG IVP ×2 (01:43→09:10)
[2023-10-31] MEDS: ACETAMINOPHEN 500 MG TABLET 1000 MG PO (01:46)
[2023-10-31 05:18] LABS: Basophils Percent Auto 0.1 % (0.2-2.0); Hematocrit 45.9 % (42.0-54.0); Hemoglobin 15.9 g/dL (14.0-18.0); Immature Granulocytes Abs Auto 0.04 10^3/uL (0.00-0.03); Immature Granulocytes Pct Auto 0.5 % (0.0-0.5); Lymphocytes Absolute Auto 0.5 10^3/uL (1.2-3.8); Lymphocytes Percent Auto 6.4 % (20.5-60.0); Mean Corpuscular HGB Conc 34.6 g/dL (29.9-35.2); Mean Corpuscular Hemoglobin 30.5 pg (25.9-34.0); Mean Corpuscular Volume 87.9 fL (80.0-94.0); Mean Platelet Volume 9.7 fL (9.5-13.5); Monocytes Absolute Auto 0.1 10^3/uL (0.3-0.8); Monocytes Percent Auto 1.6 % (1.7-12.0); Neutrophils Absolute Auto 6.7 10^3/uL (1.4-6.5); Neutrophils Percent Auto 91.4 % (43.0-75.0); Platelet Count 238 10^3/uL (150-450); Red Blood Count 5.22 10^6/uL (4.70-6.10); Red Cell Distribution Width 13.3 % (11.0-15.0); White Blood Count 7.3 10^3/uL (4.0-11.0)
[2023-10-31] MEDS: LEVALBUTEROL HCL 0.63 MG/3 ML VIAL.NEB 0.630000000000000004 MG IH ×2 (05:25→11:42)
[2023-10-31] MEDS: IPRATROPIUM BROMIDE 0.5 MG/2.5 ML VIAL.NEB IH ×2 (05:25→11:42)
[2023-10-31 05:39] LABS: Alanine Aminotransferase 16 U/L (16-63); Albumin Globulin Ratio 0.8; Alkaline Phosphatase 100 U/L (46-116); Anion Gap 13.9; Aspartate Amino Transferase 13 U/L (15-37); BUN Creatinine Ratio 17.5; Bilirubin Total 0.5 mg/dL (0.2-1.0); Calcium 8.2 mg/dL (8.5-10.1); Carbon Dioxide 24.7 mmol/L (21.0-32.0); Chloride 103 mmol/L (98-107); Estimated GFR (African America >60 (>=60); Estimated GFR (Non-African Ame >60 (>=60); Globulin 3.8 g/dL; Glucose 156 mg/dL (74-106); Potassium 3.6 mmol/L (3.5-5.1); Sodium 138 mmol/L (136-145); Total Protein 6.8 g/dL (6.4-8.2)
[2023-10-31] MEDS: OMEPRAZOLE 40 MG CAPSULE.DR PO (06:36)
[2023-10-31] MEDS: FOLIC ACID 1 MG TABLET PO (09:10)
[2023-10-31] MEDS: VENLAFAXINE HCL ER 75 MG CAPSULE 225 MG PO (09:10)
[2023-10-31] MEDS: TOPIRAMATE 100 MG TABLET PO (09:10)
[2023-10-31] MEDS: AMITRIPTYLINE HCL 50 MG TABLET 100 MG PO (09:11)
[2023-10-31] MEDS: SPIRONOLACTONE 25 MG TABLET 50 MG PO (09:11)
[2023-10-31] MEDS: CELECOXIB 200 MG CAPSULE PO (09:11)
[2023-10-31] MEDS: LOSARTAN POTASSIUM 25 MG TABLET PO (09:11)
[2023-10-31 11:27] LABS: Glucometer 134 mg/dL (74-106)
[2023-10-31] MEDS: BUDESONIDE 0.5 MG/2 ML AMPULE NEB IH (11:42)
--- NOTE | 2023-10-31 12:10 | P.DS_ITS ---
DS: Providers Provider Date of admission: 10/30/23 17:44 Primary care physician: Raquel Rayo MD Admitting clinician: Roni Deshpande Attending physician on admission: Roni Deshpande Consults: 10/30/23 Consult to Dietitian Routine Reason for consultation: weight loss Has provider been notified: Yes 10/30/23 17:32 Consult to Pharmacy Routine Consulting Provider: Reason for consultation: Please [place]ing me when Med Rec is Updated Has provider been notified: No Occupational Therapy Eval and Treat Routine Reason for consultation: Only if needed for Rehab Has provider been notified: No Physical Therapy Eval and Treat Routine Reason for consultation: Eval and Treat Has provider been notified: No Attending physician on discharge: Shaikh Tricia Discharging clinician: Shaikh Tricia Anticipated date of discharge: 10/31/23 DS: Diagnosis Discharge Diagnosis (1) COPD exacerbation: Assessment and plan: Asthma/COPD overlap, failed outpatient therapy, was originally discharged from ED on oral prednisone but returned with worsening SOB, hypoxia. Doing better today. Denies SOB, on RA. Stable for d/c on oral prednisone, oral doxycycline. F/u with PCP (2) Asthma: Assessment and plan: Asthma/COPD overlap, presented with exacerbation. Improved. No wheezing, improved air entry. Stable for d/c on oral prednisone/doxycycline. Qualifiers: Asthma severity: severe Asthma persistence: persistent Asthma complication type: with acute exacerbation Qualified Code(s): J45.51 - Severe persistent asthma with (acute) exacerbation (3) Shortness of breath: Assessment and plan: Due to COPD/asthma exacerbation. Improved. (4) Bacterial pneumonia: Assessment and plan: minimal ground glass infiltrates, treated with rocephin/doxycycline Will d/c on oral doxycycline. (5) Chronic migraine: Assessment and plan: Chronic, stable. C/w Home medications (6) ILD (interstitial lung disease): Assessment and plan: Outpatient f/u (7) Chronic respiratory failure with hypoxia: Assessment and plan: Uses 2 L O2 at night and as needed. Had noticed increasing O2 requirement before coming to ED. Now at baseline, comfortable on RA. (8) HTN (hypertension): Assessment and plan: C/w home medications. Monitor BP while on steroids. Qualifiers: Hypertension type: primary hypertension Qualified Code(s): I10 - Essential (primary) hypertension (9) HLD (hyperlipidemia): Assessment and plan: C/w lipitor Qualifiers: Hyperlipidemia type: unspecified Qualified Code(s): E78.5 - Hyperlipidemia, unspecified DS: Summary Hospital Course Hospital Course: 63-year-old male presented to ER with worsening shortness of breath increasing oxygen requirement after he was previously discharged from ER on oral prednisone and azithromycin. Since he failed outpatient therapy, he was admitted for observation and started on IV steroids, IV Rocephin and doxycycline. Workup in ED revealed possible bacterial pneumonia based on CTA chest resulting in asthma/COPD exacerbation. Patient was seen earlier today and he felt better and more or less at his baseline respiratory status. Patient is medically stable for discharge on oral prednisone and doxycycline. Patient was educated on worrisome signs and symptoms that should prompt him to return to ED for further evaluation. He was also instructed to follow-up with his PCP and pulmonology within 1 to 2 weeks. Time spent discussing smoking cessation with patient: more than 10 minutes Status at Discharge Functional status at discharge: independent ambulation Overall status at discharge: patient is back to baseline Time Spent with Patient Time attestation: Total time spent providing and/or coordinating discharge services: Exam Constitutional Vital Signs, click to edit/add: Last Vital Signs Temp 97.5 F L 10/31/23 08:00 Pulse 105 H 10/31/23 12:00 Resp 16 10/31/23 08:00 BP 170/90 H 10/31/23 08:00 Pulse Ox 95 10/31/23 11:45 O2 Del Method Room Air 10/31/23 11:45 Documenting provider has reviewed patient's vital signs: yes Common normals: no apparent distress and oriented x3 General appearance: cooperative Respiratory Common normals: normal respiratory effort and clear to auscultation bilaterally Effort & inspection: able to speak in complete sentences Auscultation: clear to auscultation bilaterally Cardio Common normals: regular rate, S1 normal heart sound and S2 normal heart sound Rate: regular rate Heart sounds: S1 normal and S2 normal GI Common normals: Normal to inspection, nondistended, normoactive bowel sounds present, soft to palpation, non-tender and no hepatosplenomegaly Palpation: soft and no hepatosplenomegaly Extremity Common normals: no clubbing, cyanosis or edema Neuro Common normals: oriented x3, moves all extremities and no focal motor deficits Psych Common normals: mental status grossly normal, denies hallucinations, denies homicidal ideation and denies suicidal ideation DS: Data Data Completed and Pending Labs on day of discharge: Labs from last 24 hours 10/31/23 10/31/23 10/30/23 11:26 04:50 20:26 WBC 7.3 RBC 5.22 Hgb 15.9 Hct 45.9 MCV 87.9 MCH 30.5 MCHC 34.6 RDW 13.3 Plt Count 238 MPV 9.7 Neut % (Auto) 91.4 H Lymph % (Auto) 6.4 L [place] % (Auto) 1.6 L Eos % (Auto) 0.0 L Baso % (Auto) 0.1 L Neut # (Auto) 6.7 H Lymph # (Auto) 0.5 L [place] # (Auto) 0.1 L Eos # (Auto) 0.0 Baso # (Auto) 0.0 Abs Immat Gran (auto) 0.04 H Imm/Tot Granulo (auto) 0.5 VBG pH VBG pCO2 Sodium 138 Potassium 3.6 Chloride 103 Carbon Dioxide 24.7 Anion Gap 13.9 BUN 18.0 Creatinine 1.03 Est GFR ( Amer) >60 Est GFR (Non-Af Amer) >60 BUN/Creatinine Ratio 17.5 Glucose 156 H Lactate 2.2 H* Calcium 8.2 L Total Bilirubin 0.5 AST 13 L ALT 16 Alkaline Phosphatase 100 Troponin I High Sens NT-Pro-B Natriuret Pep Total Protein 6.8 Albumin 3.0 L Globulin 3.8 Albumin/Globulin Ratio 0.8 Procalcitonin SARS-CoV-2 Ag (CV2AG) POC Glucose 134 H 10/30/23 10/30/23 10/30/23 20:14 17:39 15:31 WBC RBC Hgb Hct MCV MCH MCHC RDW Plt Count MPV Neut % (Auto) Lymph % (Auto) [place] % (Auto) Eos % (Auto) Baso % (Auto) Neut # (Auto) Lymph # (Auto) [place] # (Auto) Eos # (Auto) Baso # (Auto) Abs Immat Gran (auto) Imm/Tot Granulo (auto) VBG pH VBG pCO2 Sodium Potassium Chloride Carbon Dioxide Anion Gap BUN Creatinine Est GFR ( Amer) Est GFR (Non-Af Amer) BUN/Creatinine Ratio Glucose Lactate 2.9 H* Calcium Total Bilirubin AST ALT Alkaline Phosphatase Troponin I High Sens NT-Pro-B Natriuret Pep Total Protein Albumin Globulin Albumin/Globulin Ratio Procalcitonin SARS-CoV-2 Ag (CV2AG) Negative POC Glucose 126 H 10/30/23 10/30/23 14:33 14:10 WBC 9.0 RBC 5.80 Hgb 17.4 Hct 49.6 MCV 85.5 MCH 30.0 MCHC 35.1 RDW 13.2 Plt Count 253 MPV 9.9 Neut % (Auto) 78.6 H Lymph % (Auto) 15.0 L [place] % (Auto) 5.4 Eos % (Auto) 0.0 L Baso % (Auto) 0.6 Neut # (Auto) 7.0 H Lymph # (Auto) 1.3 [place] # (Auto) 0.5 Eos # (Auto) 0.0 Baso # (Auto) 0.1 Abs Immat Gran (auto) 0.04 H Imm/Tot Granulo (auto) 0.4 VBG pH 7.482 H VBG pCO2 25.6 L Sodium 133 L Potassium 2.8 L* Chloride 98 Carbon Dioxide 20.5 L Anion Gap 17.3 BUN 17.0 Creatinine 1.17 Est GFR ( Amer) >60 Est GFR (Non-Af Amer) >60 BUN/Creatinine Ratio 14.5 Glucose 229 H Lactate 2.6 H* Calcium 8.9 Total Bilirubin 0.8 AST 31 ALT 16 Alkaline Phosphatase 118 H Troponin I High Sens 61.8 NT-Pro-B Natriuret Pep 686.0 Total Protein 7.9 Albumin 3.6 Globulin 4.3 Albumin/Globulin Ratio 0.8 Procalcitonin <0.05 SARS-CoV-2 Ag (CV2AG) POC Glucose Discharge Plan Discharge Disposition: Home, Self-Care Condition: Good Discharge Medications: New prednisone 20 mg tablet 20 mg PO BID 5 Days Qty: 10 0RF doxycycline hyclate 100 mg tablet 100 mg PO BID 7 Days Qty: 14 0RF Continued amlodipine 5 mg tablet 5 mg PO DAILY biotin 1 mg tablet 1 mg PO DAILY clonidine HCl 0.1 mg tablet 0.1 mg PO BID cyanocobalamin (vitamin B-12) 1,000 mcg capsule 1,000 mcg PO DAILY fluticasone propionate 50 mcg/actuation spray,suspension 2 spray intranasal DAILY PRN (Reason: nasal congestion) Rx Instructions: administer into each nostril potassium chloride [Klor-Con M20] 20 mEq tablet,ER particles/crystals 20 meq PO BID topiramate 50 mg tablet 50 mg PO TID acetazolamide 500 mg capsule, extended release 500 mg PO DAILY Hold Instructions: Pt states not taking Patient Comments: during y season amitriptyline 100 mg tablet 100 mg PO DAILY atorvastatin 40 mg tablet 40 mg PO DAILY Breztri Aerosphere 160-9-4.8 mcg/actuation HFA aerosol inhaler 2 inh INHALATION DAILY celecoxib 200 mg capsule 400 mg PO Q12H cyclobenzaprine 10 mg tablet 10 mg PO .q6 PRN (Reason: spasms) folic acid 1 mg tablet 1 mg PO DAILY hydrocodone-acetaminophen 5-325 mg tablet 1 tab PO Q8H PRN (Reason: pain) losartan 25 mg tablet 25 mg PO DAILY methenamine hippurate 1 gram tablet 1 g PO BID omeprazole 40 mg capsule,delayed release(DR/EC) 40 mg PO BID spironolactone 50 mg tablet 50 mg PO DAILY topiramate 100 mg tablet 100 mg PO DAILY venlafaxine 150 mg capsule,extended release 24hr 300 mg PO DAILY verapamil 120 mg tablet 120 mg PO DAILY benzonatate 100 mg capsule 100 mg PO QID PRN (Reason: cough) Qty: 30 0RF Discontinued prednisone 10 mg tablet See Rx Instructions .ROUTE .COMPLEX Qty: 30 0RF Rx Instructions: Take 5 tablets on days 1-2, 4 tabs on days 3-4, 3 tabs on days 5-6, 2 tabs on days 7-8, 1 tab on days 9-10. Activity: increase activity as tolerated Diet: advance to your usual diet Print Language: Norwegian Forms: Portal Instructions Follow Up Appointments: Please call and schedule a follow up appointment to be seen by your PCP within 5-7 days
--- NOTE | 2023-11-02 12:02 | CM.DCFOLLOWU ---
Person spoke with:patient How are you feeling? well How is your pain? none Did you understand your discharge instructions? yes Do you have any questions about your discharge instructions? no Were you given any prescriptions at discharge? yes Were you able to get your prescriptions filled? yes Do you understand how to take your medications as ordered? yes Do you have any questions about your follow up appointment and do you plan to keep your follow up appointment? no questions, has call out to PCP to schedule apt. Is there anything else that you would like to discuss? no Questions/Comments/Concerns/Other: none
== END 2023-10-31 13:59 | disposition home or self-care (01) ==
LOC: ER 17:48 → MS 17:50
PROVIDERS: Family Medicine; Physician Assistant; Admitting Provider Internal Medicine; Emergency Provider Emergency Medicine; PCP Family Medicine; Visit Provider Internal Medicine
DX: J44.1 Chronic obstructive pulmonary disease with (acute) exacerbation (principal); J45.51 Severe persistent asthma with (acute) exacerbation; J44.0 Chronic obstructive pulmonary disease with (acute) lower respiratory infection; J15.9 Unspecified bacterial pneumonia; G43.909 Migraine, unspecified, not intractable, without status migrainosus; J98.4 Other disorders of lung; J96.11 Chronic respiratory failure with hypoxia; I10 Essential (primary) hypertension; E78.5 Hyperlipidemia, unspecified; R00.0 Tachycardia, unspecified; E87.6 Hypokalemia; Z79.899 Other long term (current) drug therapy; F32.A Depression, unspecified; Z99.81 Dependence on supplemental oxygen; Z20.822 Contact with and (suspected) exposure to COVID-19
CPT/HCPCS: 36415; 71275; 80053; 82800; 82948; 83605; 83880; 84145; 84484; 85025; 87040; 87070; 87811; 93005; 94640; 94667; 94668; 94761; 96365; 96366; 96367; 96368; 96375; 96376; 99285; G0378; J0696; J2405; J2919; J3480; Q9967

== ENCOUNTER 2023-11-12 07:32 | Outpatient (RCR) | payer MEDICARE, SELFPAY ==
[2023-11-12 11:53] VITALS: BP 146/92; PULSE 97; TEMP 36.3; O2SAT 94
[2023-11-12] MEDS: 0.9 % SODIUM CHLORIDE 500 ML 250 ML IV (12:14)
[2023-11-12] MEDS: HYDROCORTISONE SODIUM SUCC PF 100 MG/2 ML VIAL 120 MG IVP (12:14)
--- NOTE | 2023-11-12 12:24 | PC.NURSE ---
1153: Pt. to [facility] amb. for Gamunex infusion. Weight obtained. Seated in recliner. Vitals obtained. IV initiated to right ac on first attempt without difficulty, see documentation. Pt. tolerated without c/o. IV saline bolus 250cc initiated. Pt. given menu.
[2023-11-12] MEDS: IMMUNE GLOBUL IV (12:41)
[2023-11-12] MEDS: GLY IV (12:41)
[2023-11-12] MEDS: IGA AVG IV (12:41)
--- NOTE | 2023-11-12 12:43 | PC.NURSE ---
1241: Blood drawn off IV for ordered labs. IV Gamunex initiated at this time. Lunch tray provided.
--- NOTE | 2023-11-12 13:38 | PC.NURSE ---
1300: Tolerating infusion without c/o. Denies needs. 1338: No new changes observed. IV site clear. Denies c/o or needs.
[2023-11-12 14:00] LABS: Alanine Aminotransferase 17 U/L (16-63); Albumin Level 3.1 g/dL (3.4-5.0); Alkaline Phosphatase 94 U/L (46-116); Anion Gap 12.7; Aspartate Amino Transferase 12 U/L (15-37); BUN Creatinine Ratio 12.4; Bilirubin Total 0.9 mg/dL (0.2-1.0); Calcium 8.2 mg/dL (8.5-10.1); Carbon Dioxide 23.5 mmol/L (21.0-32.0); Chloride 101 mmol/L (98-107); Estimated GFR (African America >60 (>=60); Estimated GFR (Non-African Ame >60 (>=60); Globulin 3.2 g/dL; Glucose 119 mg/dL (74-106); Potassium 3.2 mmol/L (3.5-5.1); Sodium 134 mmol/L (136-145); Total Protein 6.3 g/dL (6.4-8.2)
[2023-11-13 04:09] LABS: Immunoglobulin G, Qn 1036 mg/dL (603-1613)
== END 2023-11-12 15:36 | disposition home or self-care (01) ==
LOC: INF 07:32
PROVIDERS: PCP Family Medicine
DX: D80.6 Antibody deficiency with near-normal immunoglobulins or with hyperimmunoglobulinemia (principal)
CPT/HCPCS: 36415; 80053; 82784; 96365; 96366; 96375; J1561; J1720

== ENCOUNTER 2023-12-10 08:58 | Outpatient (RCR) | payer MEDICARE, SELFPAY ==
[2023-12-10 11:57] VITALS: BP 116/74; PULSE 88; TEMP 36.2; O2SAT 95
--- NOTE | 2023-12-10 12:01 | PC.NURSE ---
Patient states he took Tylenol and Benadryl before he came. Patient's weight is 130.0 lbs.
[2023-12-10] MEDS: HYDROCORTISONE SODIUM SUCC PF 100 MG/2 ML VIAL 120 MG IVP (12:34)
[2023-12-10] MEDS: 0.9 % SODIUM CHLORIDE 500 ML 250 ML IV (12:34)
[2023-12-10] MEDS: GLY IV (12:35)
[2023-12-10] MEDS: IMMUNE GLOBUL IV (12:35)
[2023-12-10] MEDS: IGA AVG IV (12:35)
[2023-12-10 13:49] LABS: Albumin Globulin Ratio 0.9; Albumin Level 3.1 g/dL (3.4-5.0); Alkaline Phosphatase 109 U/L (46-116); Anion Gap 11.6; BUN Creatinine Ratio 27.1; Bilirubin Total 0.3 mg/dL (0.2-1.0); Carbon Dioxide 22.7 mmol/L (21.0-32.0); Chloride 105 mmol/L (98-107); Estimated GFR (African America >60 (>=60); Estimated GFR (Non-African Ame >60 (>=60); Globulin 3.5 g/dL; Glucose 118 mg/dL (74-106); Potassium 3.3 mmol/L (3.5-5.1); Sodium 136 mmol/L (136-145); Total Protein 6.6 g/dL (6.4-8.2)
[2023-12-10 14:27] LABS: Alanine Aminotransferase 8 U/L (16-63); Aspartate Amino Transferase <5 U/L (15-37)
--- NOTE | 2023-12-10 15:59 | PC.NURSE ---
1545: IV flush completed. Pt. denies discomfort. IV to rt. AC d/c'd; cath intact. Site without warmth, redness, edema, drainage. 2x2 applied and secured with tape. Pt. requests coban application; instructed to remove in 15 minutes or sooner if numbness or tingling occurs. Rt. hand warm with brisk cap refill to nailbeds. Pt. ambulated to bathroom with walker assist; tolerated activity well. Discharged ambulatory to private vehicle at 1555. No distress noted.
[2023-12-11 04:08] LABS: Immunoglobulin G, Qn 1047 mg/dL (603-1613)
== END 2024-01-02 23:59 | disposition home or self-care (01) ==
LOC: INF 08:58
PROVIDERS: PCP Family Medicine
DX: D80.6 Antibody deficiency with near-normal immunoglobulins or with hyperimmunoglobulinemia (principal)
CPT/HCPCS: 36415; 80053; 82784; 96365; 96366; 96375; J1561; J1720

== ENCOUNTER 2024-01-07 07:30 | Outpatient (RCR) | payer MEDICARE, SELFPAY ==
[2024-01-07 10:45] VITALS: BP 107/71; PULSE 90; TEMP 36.5; O2SAT 96
[2024-01-07] MEDS: 0.9 % SODIUM CHLORIDE 250 ML 999 ML IV ×2 (11:07→13:20)
[2024-01-07] MEDS: HYDROCORTISONE SODIUM SUCC PF 100 MG/2 ML VIAL 120 MG IV (11:18)
[2024-01-07] MEDS: IMMUNE GLOBUL IV (11:20)
[2024-01-07] MEDS: IGA AVG IV (11:20)
[2024-01-07] MEDS: GLY IV (11:20)
--- NOTE | 2024-01-07 11:57 | PC.NURSE ---
1045: Pt. to [facility] amb. for IGG treatment. Weight obtained. Seated in recliner. VSS. IV initiated, see documentation. Pt.tolerated without c.o. Menu provided.
--- NOTE | 2024-01-07 12:09 | PC.NURSE ---
1118: Lunch tray provided. Medicated with Solucortef 120mg IVP as ordered. 1120: IV Gamunex infusion initiated at this time. Pt. denies c/o or needs.
--- NOTE | 2024-01-07 12:53 | PC.NURSE ---
Tolerating infusion without c/o. IV site clear. Eating lunch. Denies needs.
[2024-01-07 13:40] VITALS: BP 112/71; PULSE 60; TEMP 36.4; O2SAT 93
--- NOTE | 2024-01-07 13:57 | PC.NURSE ---
1320: Infusion completed without adverse reaction. IV NS 250ML started at this time. Pt. without c/o. 1340: NS infused. VSS. IV d/c'd, pressure to site. Pt. d/c'd amb. to home.
== END 2024-02-01 23:59 | disposition home or self-care (01) ==
LOC: INF 07:30
PROVIDERS: PCP Family Medicine
DX: D80.6 Antibody deficiency with near-normal immunoglobulins or with hyperimmunoglobulinemia (principal)
CPT/HCPCS: 96365; 96366; 96375; J1561; J1720

== ENCOUNTER 2024-03-03 07:37 | Outpatient (RCR) | payer MEDICARE, SELFPAY ==
[2024-02-04 11:40] VITALS: BP 131/92; PULSE 98; TEMP 36.4; O2SAT 91
[2024-02-04] MEDS: HYDROCORTISONE SODIUM SUCC PF 100 MG/2 ML VIAL 120 MG IV (12:00)
[2024-02-04] MEDS: 0.9 % SODIUM CHLORIDE 500 ML IV (12:00)
[2024-02-04] MEDS: GLY IV (12:24)
[2024-02-04] MEDS: IGA AVG IV (12:24)
[2024-02-04] MEDS: IMMUNE GLOBUL IV (12:24)
--- NOTE | 2024-02-04 12:30 | PC.NURSE ---
1140: Pt. to [facility] amb. for Gamunex infusion. Weight obtained and called to pharmacy. Seated in recliner. Pt. with audible wheezes, but denies dyspnea. No fever. Lungs diminished with exp. wheezes to bilat. upper lobes. Pt. uses inhaler from home. VSS. spo2 91%. IV initiated, see documentation. Blood drawn for lab. Pt. tolerated all without c/o. 1200: Medicated with Solucortef 120mg ivp and NS 250 cc bolus. Menu provided. 1223: IV Gamunex initiated at this time. Lunch tray provided.
--- NOTE | 2024-02-04 14:37 | PC.NURSE ---
1300: Pt. tolerating infusion without c/o. Warm blanket provided. Denies needs. 1400: No change in overall status. IV site clear.
[2024-02-04 14:40] VITALS: BP 118/68; PULSE 92; TEMP 36.1; O2SAT 96
--- NOTE | 2024-02-04 14:41 | PC.NURSE ---
1425: Gamunex infusion completed without adverse reaction. Rest of NS 250ml infusing at this time. 1440: NS completed. IV d/c'd, pressure to site. D/c'd amb. to home.
[2024-02-05 08:13] LABS: Immunoglobulin G, Qn 1239 mg/dL (603-1613)
[2024-03-03] MEDS: 0.9 % SODIUM CHLORIDE 500 ML 250 ML IV (10:28)
[2024-03-03] MEDS: HYDROCORTISONE SODIUM SUCC PF 100 MG/2 ML VIAL 120 MG IVP (10:33)
[2024-03-03 10:42] VITALS: BP 138/87; PULSE 89; TEMP 35.8; O2SAT 96
[2024-03-03] MEDS: GLY IV (11:04)
[2024-03-03] MEDS: IMMUNE GLOBUL IV (11:04)
[2024-03-03] MEDS: IGA AVG IV (11:04)
== END 2024-03-03 23:59 | disposition home or self-care (01) ==
LOC: INF 07:37
PROVIDERS: PCP Family Medicine
DX: D80.6 Antibody deficiency with near-normal immunoglobulins or with hyperimmunoglobulinemia (principal)
CPT/HCPCS: 36415; 82784; 96365; 96366; 96375; J1561; J1720

== ENCOUNTER 2024-05-02 07:36 | Outpatient (RCR) | payer MEDICARE, SELFPAY ==
[2024-04-06 11:05] VITALS: BP 151/95; PULSE 76; TEMP 35.8; O2SAT 94
[2024-04-06] MEDS: HYDROCORTISONE SODIUM SUCC PF 100 MG/2 ML VIAL 120 MG IVP (11:33)
[2024-04-06] MEDS: 0.9 % SODIUM CHLORIDE 500 ML 250 ML IV (11:33)
[2024-04-06] MEDS: IMMUNE GLOBUL IV (11:46)
[2024-04-06] MEDS: IGA AVG IV (11:46)
[2024-04-06] MEDS: GLY IV (11:46)
--- NOTE | 2024-04-06 14:44 | PC.NURSE ---
1105: Pt. to [facility] amb. Weight obtained, called to pharmacy. Seated in recliner. VSS. IV initiated, see documentation. C/o burning with iv start. Flushes easily without c/o pain, swelling or redness. IV NS initiated at this time. Lunch tray ordered.
--- NOTE | 2024-04-06 14:48 | PC.NURSE ---
1133: IV Solucortef administered as ordered. 1146: Gamunex-C 40GM initiated at this time. Lunch tray provided. Denies needs. 1216: Infusion rate increased at this time. Pt. denies needs or c/o. IV site clear. 1330: Gamunex infusion completed without s&s of adverse reaction. IV NS 250cc initiated. 1357: NS completed. IV d/c'd, pressure to site. Pt. d/c'd amb. to home. Uses cane with ambulation.
[2024-05-02] MEDS: 0.9 % SODIUM CHLORIDE 500 ML 250 ML IV (11:00)
[2024-05-02] MEDS: HYDROCORTISONE SODIUM SUCC PF 100 MG/2 ML VIAL 120 MG IVP (11:01)
[2024-05-02] MEDS: IGA AVG IV (11:10)
[2024-05-02] MEDS: IMMUNE GLOBUL IV (11:10)
[2024-05-02] MEDS: GLY IV (11:10)
[2024-05-02 11:14] VITALS: BP 121/79; PULSE 90; TEMP 36.2; O2SAT 97
--- NOTE | 2024-05-02 11:41 | PC.NURSE ---
tolerating infusion without any issues. titrated up as ordered.
--- NOTE | 2024-05-02 13:18 | PC.NURSE ---
IVIG infused. remainder of 500 ml of NS (250 ml) initiated, patient tolerated infusion without any s/s of reaction.
== END 2024-05-02 13:51 | disposition home or self-care (01) ==
LOC: INF 07:36
PROVIDERS: PCP Family Medicine; Visit Provider Allergy & Immunology
DX: D80.6 Antibody deficiency with near-normal immunoglobulins or with hyperimmunoglobulinemia (principal)
CPT/HCPCS: 96365; 96366; 96375; J1561; J1720

== ENCOUNTER 2024-06-01 07:36 | Outpatient (RCR) | payer MEDICARE, SELFPAY ==
[2024-06-01 09:32] VITALS: BP 162/99; PULSE 88; TEMP 36.3; O2SAT 92
[2024-06-01] MEDS: 0.9 % SODIUM CHLORIDE 500 ML 250 ML IV (09:41)
[2024-06-01] MEDS: HYDROCORTISONE SODIUM SUCC PF 100 MG/2 ML VIAL 120 MG IVP (09:45)
[2024-06-01] MEDS: IMMUNE GLOBUL IV (10:00)
[2024-06-01] MEDS: GLY IV (10:00)
[2024-06-01] MEDS: IGA AVG IV (10:00)
--- NOTE | 2024-06-01 10:24 | PC.NURSE ---
0941: IV 0.9% NS initiated at this time. 0945: IV Solucortef administered at this time. 1000: IV Gamunex initiated as ordered at titrated rate. Pt. denies needs or c/o.
--- NOTE | 2024-06-01 10:56 | PC.NURSE ---
1045: Pt. tolerating Gamunex without s&s of adverse reaction. Eating food tray.
== END 2024-06-03 23:59 | disposition home or self-care (01) ==
LOC: INF 07:36
PROVIDERS: PCP Family Medicine; Visit Provider Allergy & Immunology
DX: D80.6 Antibody deficiency with near-normal immunoglobulins or with hyperimmunoglobulinemia (principal)
CPT/HCPCS: 96365; 96366; 96375; J1561; J1720

== ENCOUNTER 2024-07-01 07:32 | Outpatient (RCR) | payer MEDICARE, SELFPAY ==
[2024-07-01 10:18] VITALS: BP 134/85; PULSE 90; TEMP 36.5; O2SAT 93
[2024-07-01] MEDS: 0.9 % SODIUM CHLORIDE 250 ML IV (10:26)
[2024-07-01] MEDS: HYDROCORTISONE SODIUM SUCC PF 100 MG/2 ML VIAL 120 MG IV (10:30)
--- NOTE | 2024-07-01 10:35 | PC.NURSE ---
iv solucortef iv as ordered. ns 250 ml over 15 mins. tolerated well. ordered breakfast
[2024-07-01] MEDS: GLY IV (10:48)
[2024-07-01] MEDS: IGA OV50 IV (10:48)
[2024-07-01] MEDS: IMMUN GLOB IV (10:48)
[2024-07-01 13:00] LABS: Alanine Aminotransferase 7 U/L (16-63); Albumin Globulin Ratio 0.9; Albumin Level 3.4 g/dL (3.4-5.0); Alkaline Phosphatase 101 U/L (46-116); Aspartate Amino Transferase <5 U/L (15-37); BUN Creatinine Ratio 23.7; Bilirubin Total 0.2 mg/dL (0.2-1.0); Calcium 8.1 mg/dL (8.5-10.1); Carbon Dioxide 19.4 mmol/L (21.0-32.0); Chloride 107 mmol/L (98-107); Estimated GFR (African America >60 (>=60 mL/min/1.73m^2); Estimated GFR (Non-African Ame 55 (>=60 mL/min/1.73m^2); Globulin 3.7 g/dL; Glucose 94 mg/dL (74-106); Potassium 3.4 mmol/L (3.5-5.1); Sodium 140 mmol/L (136-145); Total Protein 7.1 g/dL (6.4-8.2)
[2024-07-01] MEDS: 0.9 % SODIUM CHLORIDE 250 ML 999 ML IV (13:05)
[2024-07-02 08:08] LABS: Immunoglobulin G, Qn 1197 mg/dL (603-1613)
== END 2024-07-01 23:59 | disposition home or self-care (01) ==
LOC: INF 07:32
PROVIDERS: PCP Family Medicine; Visit Provider Allergy & Immunology
DX: D80.6 Antibody deficiency with near-normal immunoglobulins or with hyperimmunoglobulinemia (principal)
CPT/HCPCS: 36415; 80053; 82784; 96365; 96366; 96375; J1569; J1720

== ENCOUNTER 2024-08-01 07:31 | Outpatient (RCR) | payer MEDICARE, SELFPAY ==
[2024-08-01 10:15] VITALS: BP 127/78; PULSE 93; TEMP 36.3; O2SAT 92
[2024-08-01] MEDS: HYDROCORTISONE SODIUM SUCC PF 100 MG/2 ML VIAL 120 MG IVP (10:45)
[2024-08-01] MEDS: 0.9 % SODIUM CHLORIDE 250 ML IV ×2 (10:52→13:20)
[2024-08-01] MEDS: IMMUNE GLOBUL IV (11:38)
[2024-08-01] MEDS: GLY IV (11:38)
[2024-08-01] MEDS: IGA AVG IV (11:38)
== END 2024-08-01 23:59 | disposition home or self-care (01) ==
LOC: INF 07:31
PROVIDERS: PCP Family Medicine
DX: D80.6 Antibody deficiency with near-normal immunoglobulins or with hyperimmunoglobulinemia (principal)
CPT/HCPCS: 96365; 96366; 96375; J1561; J1720

== ENCOUNTER 2024-09-05 07:31 | Outpatient (RCR) | payer MEDICARE, SELFPAY ==
[2024-09-05 09:50] VITALS: BP 103/73; PULSE 120; TEMP 36.1; O2SAT 91
[2024-09-05] MEDS: 0.9 % SODIUM CHLORIDE 500 ML 250 ML IV (10:30)
[2024-09-05] MEDS: HYDROCORTISONE SODIUM SUCC PF 100 MG/2 ML VIAL 120 MG IV (10:32)
[2024-09-05 10:44] LABS: Alanine Aminotransferase 21 U/L (16-63); Albumin Globulin Ratio 1.1; Alkaline Phosphatase 126 U/L (46-116); Anion Gap 21.4; Aspartate Amino Transferase 19 U/L (15-37); BUN Creatinine Ratio 10.7; Bilirubin Total 0.7 mg/dL (0.2-1.0); Calcium 8.7 mg/dL (8.5-10.1); Carbon Dioxide 20.1 mmol/L (21.0-32.0); Chloride 98 mmol/L (98-107); Estimated GFR (African America 47 (>=60 mL/min/1.73m^2); Estimated GFR (Non-African Ame 39 (>=60 mL/min/1.73m^2); Globulin 3.8 g/dL; Glucose 181 mg/dL (74-106); Sodium 137 mmol/L (136-145); Total Protein 7.8 g/dL (6.4-8.2)
[2024-09-05] MEDS: IGA AVG IV (10:57)
[2024-09-05] MEDS: IMMUNE GLOBUL IV (10:57)
[2024-09-05] MEDS: GLY IV (10:57)
--- NOTE | 2024-09-05 10:58 | PC.NURSE ---
IV Gamunex initiated at this time. Pt. without needs or c/o. Lunch tray ordered.
[2024-09-05 11:00] LABS: Potassium 2.5 mmol/L (3.5-5.1)
--- NOTE | 2024-09-05 11:14 | PC.NURSE ---
1100: Lab phoned with critical K+ 2.5. Dr. Mayfield's office notified and instructed pt. to go to ED after Gamunex infusion. Pt. notified and asked if this Rn would notify Dr. Rayo to see if she will order IV KCL while pt. in [facility]. Dr. Hopkins office phoned and message relayed to nurse. Will call back with instructions after MD notified. Pt. aware.
--- NOTE | 2024-09-05 12:00 | PC.NURSE ---
1125: Dr. Rayo's office phoned back instructing pt. to go to ED after infusion. Pt. relays to this RN that he will refuse and leave for home after Gamunex infused. This RN educates pt. on the effects of a low potassium level on the heart. Pt. relays he will take his own oral potassium when he gets home. This RN encourages pt. to be seen in ED for potential harmful effects of low K+ level. Pt. relays understanding.
--- NOTE | 2024-09-05 12:45 | PC.NURSE ---
1245: Gamunex infusion completed without s&s of adverse reaction. IV NS 250cc bolus initiated at this time. Pt. cont. to deny needs or c/o.
[2024-09-05 13:55] VITALS: BP 113/63; PULSE 93; TEMP 36.6; O2SAT 91
--- NOTE | 2024-09-05 14:02 | PC.NURSE ---
1355: Pt. completed NS bolus. Decides to allow this RN to transfer to ED for KCL evaluation. Pt. transported to ED via w/c accompanied by son.
== END 2024-09-05 13:39 | disposition home or self-care (01) ==
LOC: INF 07:31
PROVIDERS: PCP Family Medicine; Visit Provider Allergy & Immunology
DX: D80.6 Antibody deficiency with near-normal immunoglobulins or with hyperimmunoglobulinemia (principal)
CPT/HCPCS: 36415; 80053; 96365; 96366; 96375; J1561; J1720

== ENCOUNTER 2024-09-05 13:20 | Emergency (ER) | payer MEDICARE, SELFPAY ==
[2024-09-05] VITALS (15 sets, daily range): BP systolic 126; BP diastolic 87; PULSE 88–107; TEMP 36.7; O2SAT 92–96; BMI 27.2
--- NOTE | 2024-09-05 14:15 | PC.NURSE ---
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 Pt is asymptomatic stating he actually feels better today than he normally does Pt presents with a 22g IV already present in his left hand
--- NOTE | 2024-09-05 14:17 | ED.RECABL1 ---
HPI - Recheck/Abnormal Lab/Rx General Chief Complaint: Recheck/Abnormal Lab/Rx Stated Complaint: ABNORMAL LABS Time Seen by Provider: 09/05/24 13:21 Source: patient Mode of arrival: walk-in Limitations: no limitations History of Present Illness HPI narrative: 64 year old male presents to the ED from the infusion center for low potassium. His potassium was 2.5 today. He takes an oral potassium supplement daily. Denies fever, chills, fatigue, dizziness, JOHNS. Denies CP, palpitations, SOB, abd pain, N/V/D. Related Data Home Medications ?Medication ?Instructions ?Recorded ?Confirmed acetazolamide 500 mg 500 mg PO DAILY 10/15/23 09/05/24 capsule,extended release amitriptyline 100 mg tablet 100 mg PO DAILY 10/15/23 09/05/24 atorvastatin 40 mg tablet 40 mg PO DAILY 10/15/23 09/05/24 budesonide 160 mcg-glycopyr 9 2 inh inhalation DAILY 10/15/23 09/05/24 mcg-formot 4.8 mcg/actuation HFA inhaler (Breztri Aerosphere) celecoxib 200 mg capsule 400 mg PO Q12H 10/15/23 09/05/24 folic acid 1 mg tablet 1 mg PO DAILY 10/15/23 09/05/24 losartan 25 mg tablet 25 mg PO DAILY 10/15/23 09/05/24 methenamine hippurate 1 gram tablet 1 g PO BID 10/15/23 09/05/24 omeprazole 40 mg capsule,delayed 40 mg PO BID 10/15/23 09/05/24 release spironolactone 50 mg tablet 50 mg PO DAILY 10/15/23 09/05/24 topiramate 100 mg tablet 100 mg PO DAILY 10/15/23 09/05/24 venlafaxine 150 mg 300 mg PO DAILY 10/15/23 09/05/24 capsule,extended release 24 hr verapamil 120 mg tablet 120 mg PO DAILY 10/15/23 09/05/24 amlodipine 5 mg tablet 5 mg PO DAILY 10/30/23 09/05/24 biotin 1 mg tablet 1 mg PO DAILY 10/30/23 09/05/24 clonidine HCl 0.1 mg tablet 0.1 mg PO BID 10/30/23 09/05/24 cyanocobalamin (vitamin B-12) 1,000 mcg PO DAILY 10/30/23 09/05/24 1,000 mcg capsule fluticasone propionate 50 2 spray intranasal DAILY PRN nasal 10/30/23 09/05/24 mcg/actuation nasal congestion spray,suspension potassium chloride 20 mEq 20 meq PO BID 10/30/23 09/05/24 tablet,extended release(part/cryst) (Klor-Con M) topiramate 50 mg tablet 50 mg PO TID 10/30/23 09/05/24 galcanezumab-gnlm 120 mg/mL 120 mg subcut DAILY 09/05/24 09/05/24 subcutaneous pen injector (Emgality Pen) losartan 100 mg tablet 100 mg PO DAILY 09/05/24 09/05/24 oxycodone-acetaminophen 5 mg-325 1 tab PO Q12H 09/05/24 09/05/24 mg tablet pregabalin 100 mg capsule 100 mg PO Q12H 09/05/24 09/05/24 topiramate 200 mg tablet 200 mg PO Q12H 09/05/24 09/05/24 Allergies Allergy/AdvReac Type Severity Reaction Status Date / Time baclofen Allergy Severe Unknown Verified 09/05/24 14:01 ciprofloxacin (From Cipro) Allergy Severe Unknown Verified 09/05/24 14:01 indomethacin (From Indocin) Allergy Severe Unknown Verified 09/05/24 14:01 Penicillins Allergy Severe Unknown Verified 09/05/24 14:01 Sulfa (Sulfonamide Allergy Severe Unknown Verified 09/05/24 14:01 Antibiotics) propranolol Allergy Unknown Verified 09/05/24 14:01 Review of Systems ROS Constitutional Denies: fever, chills or fatigue Cardiovascular Denies: chest pain, palpitations, swelling of feet/ankles or lightheadedness Respiratory Denies: shortness of breath Gastrointestinal Denies: abdominal pain, nausea, vomiting or diarrhea Musculoskeletal Denies: back pain or neck pain Integumentary/Breast Denies: rash Neurological Denies: headache, numbness in extremities, weakness in extremities or dizziness [facility] Medical History (Updated 09/05/24 @ 17:32 by Abby Durbin) HLD (hyperlipidemia) ?E78.5 - Hyperlipidemia, unspecified (ICD-10) HTN (hypertension) ?I10 - Essential (primary) hypertension (ICD-10) Chronic respiratory failure with hypoxia ?J96.11 - Chronic respiratory failure with hypoxia (ICD-10) Vertigo ?R42 - Dizziness and giddiness (ICD-10) Concussion with loss of consciousness ?S06.0X9A - Concussion with loss of consciousness of unspecified duration, initial encounter (ICD-10) Stroke ?I63.9 - Cerebral infarction, unspecified (ICD-10) Depression ?F32.A - Depression, unspecified (ICD-10) Chronic migraine 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 (ICD-10) Asthma ?J45.909 - Unspecified asthma, uncomplicated (ICD-10) ILD (interstitial lung disease) ?J84.9 - Interstitial pulmonary disease, unspecified (ICD-10) Surgical History (Updated 10/30/23 @ 18:04 by Alina Rose) H/O laminectomy ?Z98.890 - Other specified postprocedural states (ICD-10) History of hip replacement, total ?Z96.649 - Presence of unspecified artificial hip joint (ICD-10) H/O: knee surgery ?Z98.890 - Other specified postprocedural states (ICD-10) Family History (Updated 10/30/23 @ 18:06 by Alina Rose) Father Family history of CHF (congestive heart failure) Family history of cancer Family history of myocardial infarction Mother Family history of COPD (chronic obstructive pulmonary disease) Family history of cancer Family history of hypertension Family history of myocardial infarction Family history of stroke Brother Family history of cancer Uncle Family history of cancer Aunt Family history of diabetes mellitus Social History (Updated 10/30/23 @ 18:13 by Alina Rose) Within the past year, how often did you have a drink containing alcohol: never Score interpretation: A score less than 4 is consistent with normal alcohol consumption. Smoking status: Never smoker Non-prescribed substance use: denies use Previous occupational history: retired Highest level of school completed/degree received: Master's degree Are you now , , , , never or living with a partner: In a typical week, how many times do you talk on the telephone with family, friends, or neighbors: twice per week How often do you get together with friends or relatives: twice per week How often do you attend adventist or hindu services: 4 or more times per year Do you belong to any clubs or organizations such as adventist groups unions, fraternal or athletic groups, or school groups: yes Total score: 3 Score interpretation: A score of greater than or equal to 2 indicates the lowest level of social isolation. Little interest or pleasure in doing things: not at all Feeling down, depressed, or hopeless: not at all Feel stressed/tense/nervous/anxious/difficulty sleeping: to some extent Exam Constitutional Vital Signs, click to edit/add: Last Vital Signs Temp 98.1 F 09/05/24 14:01 Pulse 88 09/05/24 17:18 Resp 18 09/05/24 17:18 BP 126/87 09/05/24 14:01 Pulse Ox 96 09/05/24 17:18 Common normals: no apparent distress and oriented x3 General appearance: cooperative HENMT Common normals: moist oral mucous membranes Eye Common normals: conjunctivae normal and no scleral icterus Neck & C-Spine Common normals: supple Chest Chest: symmetrical chest wall rise Respiratory Common normals: normal respiratory effort and clear to auscultation bilaterally Effort & inspection: able to speak in complete sentences and symmetric chest movement Cardio Common normals: regular rate and regular rhythm Neuro Common normals: oriented x3, moves all extremities and no focal motor deficits Sensorium/orientation: awake and alert Speech: speech normal Course Vital Signs Vital signs: Vital Signs Temperature 98.1 F 09/05/24 14:01 Pulse Rate 107 H 09/05/24 14:01 Respiratory Rate 18 09/05/24 14:01 Blood Pressure 126/87 09/05/24 14:01 Pulse Oximetry 92 L 09/05/24 14:01 Temperature 98.1 F 09/05/24 14:01 Pulse Rate 88 09/05/24 17:18 Respiratory Rate 18 09/05/24 17:18 Blood Pressure 126/87 09/05/24 14:01 Pulse Oximetry 96 09/05/24 17:18 MDM - Recheck/Abnormal Lab/Rx MDM Narrative Medical decision making narrative: The patient's potassium was 2.5 at the infusion center today. He was given oral potassium and IV potassium here in the ED with improvement. Repeat potassium was 3.3. He was encouraged to take his supplement tonight. Follow up with pcp for a recheck, further evaluation and treatment. Medical Records Attestation: I reviewed the patient's medical records. Lab Data Attestation: I reviewed the patient's lab results. Labs: Lab Results 09/05/24 Range/Units 16:56 Potassium 3.3 L (3.5-5.1) mmol/L ECG Data Attestation: ?I have reviewed the pertinent ECG results. (EKG was reviewed by the attending physician. It showed sinus rhythm at a rate of 98. No STEMI.) Interpretation: Measurements Intervals [place] Rate: 98 P: 55 ID: 152 QRS: -1 QRSD: 94 T: 36 QT: 380 QTc: 435 Interpretive Statements 1100 Sinus rhythm 4068 Nonspecific Twave abnormality 5233 Voltage criteria for LVH 9150 abnormal ECG No previous ECG available for comparison Discharge Plan Discharge Chief Complaint: Recheck/Abnormal Lab/Rx Clinical Impression: Hypokalemia Patient Disposition: Home, Self-Care Time of Disposition Decision: 17:31 Condition: Good Mode of Transportation: Private Vehicle Prescriptions / Home Meds: No Action amlodipine 5 mg tablet 5 mg PO DAILY biotin 1 mg tablet 1 mg PO DAILY clonidine HCl 0.1 mg tablet 0.1 mg PO BID cyanocobalamin (vitamin B-12) 1,000 mcg capsule 1,000 mcg PO DAILY fluticasone propionate 50 mcg/actuation spray,suspension 2 spray intranasal DAILY PRN (Reason: nasal congestion) Rx Instructions: administer into each nostril potassium chloride [Klor-Con M20] 20 mEq tablet,ER particles/crystals 20 meq PO BID topiramate 50 mg tablet 50 mg PO TID Emgality Pen 120 mg/mL pen injector 120 mg SUBCUT DAILY losartan 100 mg tablet 100 mg PO DAILY oxycodone-acetaminophen 5-325 mg tablet 1 tab PO Q12H pregabalin 100 mg capsule 100 mg PO Q12H topiramate 200 mg tablet 200 mg PO Q12H acetazolamide 500 mg capsule, extended release 500 mg PO DAILY Patient Comments: during y season amitriptyline 100 mg tablet 100 mg PO DAILY atorvastatin 40 mg tablet 40 mg PO DAILY Breztri Aerosphere 160-9-4.8 mcg/actuation HFA aerosol inhaler 2 inh INHALATION DAILY celecoxib 200 mg capsule 400 mg PO Q12H folic acid 1 mg tablet 1 mg PO DAILY losartan 25 mg tablet 25 mg PO DAILY methenamine hippurate 1 gram tablet 1 g PO BID omeprazole 40 mg capsule,delayed release(DR/EC) 40 mg PO BID spironolactone 50 mg tablet 50 mg PO DAILY topiramate 100 mg tablet 100 mg PO DAILY venlafaxine 150 mg capsule,extended release 24hr 300 mg PO DAILY verapamil 120 mg tablet 120 mg PO DAILY Print Language: Montserratian Additional Instructions: Your repeat potassium was 3.3. Please take your supplement tonight. Return to the ER if your condition worsens. Referrals: Raquel Rayo MD [Primary Care Provider, Family Practice] - 1 week Discharge Date/Time: 09/05/24 17:50
[2024-09-05] MEDS: POTASSIUM CHLORIDE IN WATER 10 MEQ/100 ML PREMIX 100 MEQ IV ×2 (14:30→15:35)
[2024-09-05] MEDS: 0.9 % SODIUM CHLORIDE 1,000 ML 250 ML IV (14:30)
[2024-09-05] MEDS: POTASSIUM BICARBONATE/CIT 25 MEQ TABLET EFF 50 MEQ PO (14:54)
--- NOTE | 2024-09-05 14:55 | ECG_ITS ---
[facility] Test Date: 2024-09-05 Pat Name: VERNA NEELY Department: Room: - Gender: Male Director Rehabilitation Program: : 1960 Requested By: [id number] Order Number: [id number] Reading MD: FRANKO ROSADO M.D. Measurements Intervals [place] Rate: 98 P: 55 ND: 152 QRS: -1 QRSD: 94 T: 36 QT: 380 QTc: 435 Interpretive Statements 1100 Sinus rhythm 4068 Nonspecific Twave abnormality 5233 Voltage criteria for LVH 9150 abnormal ECG Compared to ECG 10/30/2023 13:55:47 Sinus tachycardia no longer present Electronically Signed On 09-05-2024 17:58:17 EDT by FRANKO ROSADO M.D.
[2024-09-05 17:19] LABS: Potassium 3.3 mmol/L (3.5-5.1)
== END 2024-09-05 17:50 | disposition home or self-care (01) ==
PROVIDERS: Nurse Practitioner Family; Emergency Provider Student in an Organized Health Care Education/Training Program; PCP Family Medicine
DX: E87.6 Hypokalemia (principal); D80.6 Antibody deficiency with near-normal immunoglobulins or with hyperimmunoglobulinemia; Z96.649 Presence of unspecified artificial hip joint
CPT/HCPCS: 36415; 80053; 84132; 93005; 96365; 96366; 96375; 99285; J1561; J1720; J3480

== ENCOUNTER 2024-09-06 10:23 | Outpatient (OUT) | payer MEDICARE, SELFPAY ==
--- NOTE | 2024-09-06 11:18 | XR_ITS ---
[place] [id number] Patient Name: VERNA NEELY MRN: [id number] date: 1960 Sex: M Assigned Patient Location: [facility] Current Patient Location: [facility] Accession/Order Number: [id number] Exam Date: 09/06/2024 11:52 Report Date: 09/06/2024 11:53 At the request of: MARSHA STEELE DO Procedure: XR cervical spine 5V CERVICAL SPINE 5 views: CLINICAL HISTORY: Spondylosis COMPARISON: None FINDINGS: Vertebral body and disc space heights appear maintained. Scattered endplate and facet joint degenerative changes. No severe bony neural foraminal narrowing. No prevertebral soft tissue swelling. XR/XR cervical spine 5V IMPRESSION: ENDPLATE AND FACET JOINT DEGENERATIVE CHANGES WITHOUT SIGNIFICANT DISC HEIGHT LOSS. Impression dictated by: Dustin Last Jr., D.O. 09/06/2024 11:53 AM Dictation Location: [place] [address] Electronically authenticated by: [id number] Y Date: 09/06/2024 11:53
== END 2024-09-06 10:24 | disposition home or self-care (01) ==
LOC: RAD 10:26
PROVIDERS: PCP Family Medicine; Visit Provider Anesthesiology
DX: M47.812 Spondylosis without myelopathy or radiculopathy, cervical region (principal); M50.30 Other cervical disc degeneration, unspecified cervical region
CPT/HCPCS: 72050

== ENCOUNTER 2024-09-06 10:31 | Outpatient (OUT) | payer MEDICARE, SELFPAY ==
[2024-09-06 11:18] LABS: Anion Gap 15.6; Calcium 8.1 mg/dL (8.5-10.1); Chloride 108 mmol/L (98-107); Estimated GFR (African America >60 (>=60 mL/min/1.73m^2); Estimated GFR (Non-African Ame 58 (>=60 mL/min/1.73m^2); Glucose 85 mg/dL (74-106); Potassium 3.6 mmol/L (3.5-5.1); Sodium 144 mmol/L (136-145)
== END 2024-09-06 10:32 | disposition home or self-care (01) ==
LOC: LAB 10:36
PROVIDERS: PCP Family Medicine; Visit Provider Family Medicine
DX: E87.6 Hypokalemia (principal)
CPT/HCPCS: 36415; 80048

== ENCOUNTER 2024-10-02 00:22 | Inpatient (IN) | payer MEDICARE, SELFPAY ==
[2024-10-02] VITALS (133 sets, daily range): BP systolic 77–142; BP diastolic 50–90; PULSE 86–121; TEMP 36.6–36.8; O2SAT 86–100; BMI 24.4; BMI 28.5
--- OUTSIDE RECORDS SUMMARY | 2024-10-02 00:28 | XMS_ITS | Encounter Summary ---
Author Organization [facility] Address [address] [place] [address] Phone Care Team Providers Care Consumer Affairs Manager Name Role Phone Raquel Rayo MD Primary Care Provider [phone] Courtney Mayfield MD Unavailable [phone] Encounter Details Date Type Department Care Team (Late st Contact Info) Description 03/17/2023 Scanned Document [facility] [address] [facility] [address] [place] [address] Courtney Mayfield MD [address] [facility], [facility] [address] [place], [place] [id number] Social History Tobacco Use Types Packs/Day Years Used Date Smoking Tobacco: Never Smokeless Tobacco: Never Alcohol Use Standard Drinks/Week Comments Never 0 (1 standard drink = 0.6 oz pur e alcohol) PHQ-2 Answer Date Recorded Patient Health Questionnaire-2 Score 4 09/03/2022 Sex and Gender Information Value Date Recorded Sex Assigned at Not on file Legal Sex Male 11:51 PM EST Gender Identity Not on file Sexual Orientation Not on file COVID-19 Exposure Response Date Recorded In the last 10 days, have yo u been in contact with someone who was confirmed or suspected to have Coronavirus/COVID-19? No / Unsure 02/16/2023 10:16 AM EDT documented as of this encounter Plan of Treatment Upcoming Encounters Date Type Department Care Team (Late st Contact Info) Description 11/07/2024 11:30 AM EDT Procedure Visit [facility] [address] [facility] [address] [place] [phone] Jodie Matthews MD [address] [place] [address] 12/19/2024 2:45 PM EDT Office Visit [facility] [address] [facility] [address] [place] [phone] Courtney Mayfield MD [address] [facility], [facility] [address] [place], [place] [id number] 02/17/2025 11:30 AM EDT Telemedicine [facility] [address] [facility] [address] [place] [phone] Leonila Kern APRN-PRATIMA [address] [facility], [facility] [address] [place] [address] documented as of this encounter Visit Diagnoses Not on filedocumented in this encounter Additional Health Concerns Assessment Noted Time PHQ-9 Depression Total Score: 11 023 10:35 AM EDT A fall risk assessment has been complete d for the patient 02/16/2023 10:23 AM EDT documented as of this encounter Care Teams Consumer Affairs Manager Relationship Specialty Start Date End Date Raquel Rayo MD [address] [place] [address] [place] [address] PCP - General 09/19/10 Courtney Mayfield MD [address] [facility], [facility] [address] [place], [place] [id number] Referring Physician Allergy and Immunology 02/12/24 documented as of this encounter
--- OUTSIDE RECORDS SUMMARY | 2024-10-02 00:28 | XMS_ITS | Encounter Summary ---
Author Organization [facility] Address [address] [place] [address] Phone Care Team Providers Care Churn Driller Name Role Phone Raquel Rayo MD Primary Care Provider [phone] Courtney Mayfield MD Unavailable [phone] Encounter Details Date Type Department Care Team (Late st Contact Info) Description 12/06/2019 Orders Only [facility] [address] [place] [address] Conversion, Onbase Social History Tobacco Use Types Packs/Day Years Used Date Smoking Tobacco: Never Assessed Sex and Gender Information Value Date Recorded Sex Assigned at Not on file Legal Sex Male 11:51 PM EST Gender Identity Not on file Sexual Orientation Not on file documented as of this encounter Plan of Treatment Upcoming Encounters Date Type Department Care Team (Late st Contact Info) Description 11/07/2024 11:30 AM EDT Procedure Visit [facility] [address] [place] [phone] Jodie Matthews MD [address] [place] [address] 12/19/2024 2:45 PM EDT Office Visit [facility] [address] [facility] [address] [place] [phone] Courtney Mayfield MD [address] [facility], [place] [address] [place] [address] 02/17/2025 11:30 AM EDT Telemedicine [facility] [address] [facility] [address] [place] [address] Leonila Kern APRN-[facility]ANNY [address] [facility], [facility] [address] [place] [address] Scheduled Orders Name Type Priority Associated Diagnoses Orde r Schedule OUTSIDE LAB SCAN Lab Ordered: 12/06/2019 OUTSIDE LAB SCAN Lab Ordered: 12/06/2019 documented as of this encounter Visit Diagnoses Not on filedocumented in this encounter Care Teams Churn Driller Relationship Specialty Start Date End Date Raquel Rayo MD [address] [place] [address] [place] [address] PCP - General 09/19/10 Courtney Mayfield MD [address] [facility], [place] [address] [place] [address] Referring Physician Allergy and Immunology 02/12/24 documented as of this encounter
--- OUTSIDE RECORDS SUMMARY | 2024-10-02 00:28 | XMS_ITS | Clinical Summary ---
Author Organization [facility] Address [id number] [address] [place] [address] Care Team Providers Care Taxicab Starter Name Role Phone Unavailable Primary Care Provider Unavailabl e Allergies Active Allergy Reactions Criticality Noted Date Comments Baclofen 02/16/2019 Weakness, dizziness Ciprofloxacin 02/16/2019 Rash, tongue swelling Indomethacin 02/16/2019 hypotension Penicillins 02/16/2019 rash Propranolol 02/16/2019 hypotension Sulfa (Sulfonamide Antibiotics) 02/16/2019 Sob, rash Medications aspirin 81 mg Take 81 mg by mouth 2 (two) times a day. Active celecoxib (CeleBREX) 200 mg capsule Take 200 mg by mouth 4 (four) times a day. Active fluticasone propionate (FLONASE) 50 mcg/actuation nasal spray Administer 1 spray into each nostril daily. Active mometasone/form oterol (DULERA INHL) Inhale. Active umeclidinium brm/vilanterol tr (ANORO ELLIPTA INHL) Inhale. Active levalbuterol (XOPENEX) 1.25 mg/3 mL nebulizer solution Inhale 1 ampule by nebulization every 4 (four) hours as needed for wheezing. Active losartan (COZAAR) 50 mg tablet Take 100 mg by mouth daily. Active cloNIDine (CATAPRES) 0.1 mg tablet Take 0.1 mg by mouth 2 (two) times a day. Active amLODIPine (NORVASC) 5 mg tablet Take 5 mg by mouth daily. Active nitrofurantoin, macrocrystal-mo nohydrate, (MACROBID) 100 mg capsule Take 100 mg by mouth 2 (two) times a day. Active spironolactone (ALDACTONE) 25 mg tablet Take 25 mg by mouth daily. Active SUMAtriptan succinate 3 mg/0.5 mL pen injector Inject under the skin. Active tamsulosin (FLOMAX) 0.4 mg capsule Take 0.4 mg by mouth daily. Active topiramate (TOPAMAX) 100 mg tablet Take 100 mg by mouth 4 (four) times a day. Active tiZANidine (ZANAFLEX) 4 mg tablet Take 4 mg by mouth every 6 (six) hours as needed for muscle spasms. Active verapamil (VERELAN) 120 mg 24 hr capsule Take 120 mg by mouth nightly. Active orphenadrine (NORFLEX) 100 mg 12 hr tablet Take 100 mg by mouth 2 (two) times a day. Active albuterol (PROVENTIL HFA;VENTOLIN HFA) 90 mcg/actuation inhaler Inhale 2 puffs every 4 (four) hours as needed for wheezing. Active gabapentin (NEURONTIN) 600 mg tablet Take 600 mg by mouth 4 (four) times a day. Active omeprazole (PriLOSEC) 40 mg capsule Take 40 mg by mouth daily. Active raNITIdine (ZANTAC) 300 mg tablet Take 300 mg by mouth 2 (two) times a day. Active amitriptyline (ELAVIL) 50 mg tablet Take 50 mg by mouth nightly. Active primidone (MYSOLINE) 50 mg tablet Take 50 mg by mouth 2 (two) times a day. 250 mg at HS Active HYDROcodone-ronni taminophen (NORCO) 5-325 mg per tablet Take 1 tablet by mouth every 6 (six) hours as needed for pain. Active OMALIZUMAB SUBQ Inject under the skin. Active Social History Tobacco Use Types Packs/Day Years Used Date Smoking Tobacco: Never Smokeless Tobacco: Never Alcohol Use Standard Drinks/Week Comments Never 0 (1 standard drink = 0.6 oz pur e alcohol) AUDIT-C Answer Date Recorded Frequency of Alcohol Consumption Never 02/16/2019 Average Number of Drinks Not on file 019 Frequency of Binge Drinking Not on file 02/01 Childcare Answer Date Recorded Childcare Unknown 10/07/2018 Employment Answer Date Recorded Employment Unknown 10/07/2018 Purpose - Life Answer Date Recorded Purpose and direction in life Unknown Sex and Gender Information Value Date Recorded Sex Assigned at Not on file Legal Sex Male 11:51 PM EDT Gender Identity Not on file Sexual Orientation Not on file Last Filed Vital Signs Vital Sign Reading Time Taken Comments Blood Pressure - - Pulse - - Temperature - - Respiratory Rate - - Oxygen Saturation - - Inhaled Oxygen Concentration - - Weight 93 kg (205 lb) 02/16/2019 1:28 PM EDT Height 175.3 cm (5' 9 ) 02/16/2019 1:28 PM EDT Body Mass Index 30.27 02/16/2019 1:28 PM EDT Plan of Treatment Health Maintenance Due Date Last Done Comments Depression Screening 1973 Tobacco Screening 1973 Adult BMI Screening 1979 DTaP,Tdap and Td Vaccines (1 - Tdap) 01/20/1980 Zoster (Shingles) Vaccine (1 of 2) 2011 Influenza Vaccine 01/02/2025 02/05/2018, 05/04/2017 Medical Devices Not on file Insurance [employer]
--- OUTSIDE RECORDS SUMMARY | 2024-10-02 00:28 | XMS_ITS | Encounter Summary ---
Author Organization [facility] Address [address] [place] [address] Phone Care Team Providers Care Field Mechanic Name Role Phone Raquel Rayo MD Primary Care Provider [phone] Courtney Mayfield MD Unavailable [phone] Encounter Details Date Type Department Care Team (Late st Contact Info) Description 04/16/2023 Scanned Document [facility] [address] [facility] [address] [place] [address] Courtney Mayfield MD [address] [facility], [place] [address] [place], [place] [id number] Social History Tobacco Use Types Packs/Day Years [...] suspected to have Coronavirus/COVID-19? No / Unsure 04/15/2023 11:35 AM EST documented as of this encounter Plan of Treatment Upcoming Encounters Date Type Department Care Team (Late st Contact Info) Description 11/07/2024 11:30 AM EDT Procedure Visit [facility] [address] [facility] [address] [place] [phone] Jodie Matthews MD [address] [place] [address] 12/19/2024 2:45 PM EDT Office Visit [facility] [address] [facility] [address] [place] [phone] Courtney Mayfield MD [address] [facility], [facility] [address] [place] [address] 02/17/2025 11:30 AM EDT Telemedicine [facility] [address] [facility] [address] [place] [phone] Leonila Kern APRN-ACTUARIAL ASSOCIATE [address] [facility], [facility] [address] [place] [address] documented as of this encounter Visit Diagnoses Not on filedocumented in this encounter Additional Health Concerns Assessment Noted Time PHQ-9 Depression Total Score: 11 023 10:35 AM EDT A fall risk assessment has been complete d for the patient 02/16/2023 10:23 AM EDT documented as of this encounter Care Teams Field Mechanic Relationship Specialty Start Date End Date Raquel Rayo MD [address] [place] [address] [place] [address] PCP - General 09/19/10 Courtney Mayfield MD [address] [facility], [facility] [address] [place] [address] Referring Physician Allergy and Immunology 02/12/24 documented as of this encounter
--- OUTSIDE RECORDS SUMMARY | 2024-10-02 00:28 | XMS_ITS | Encounter Summary ---
Author Organization [facility] Address [address] [place] [address] Phone Care Team Providers Care Professional Organizer Name Role Phone Raquel Rayo MD Primary Care Provider [phone] Courtney Mayfield MD Unavailable [phone] Encounter Details Date Type Department Care Team (Late st Contact Info) Description 02/06/2020 Orders Only [facility] [address] [place] [address] Conversion, Onbase Social History Tobacco Use Types [...] Description 11/07/2024 11:30 AM EDT Procedure Visit [facility] [address] [place] [phone] Jodie Matthews MD [address] [place] [address] 12/19/2024 2:45 PM EDT Office Visit [facility] [address] [facility] [address] [place] [address] Courtney Mayfield MD [address] [facility] [place], [address] [place] [address] 02/17/2025 11:30 AM EDT Telemedicine [facility] [address] [facility] 130 [place] [address] Leonila Kern CAR PARKER-COSTUME DRAPER [address] [facility], [facility] [address] [place] [address] Scheduled Orders Name Type Priority Associated Diagnoses Orde r Schedule OUTSIDE LAB SCAN Lab Ordered: 02/06/2020 documented as of this encounter Visit Diagnoses Not on filedocumented in this encounter Care Teams Professional Organizer Relationship Specialty Start Date End Date Raquel Rayo MD [address] [place] [address] PCP - General 09/19/10 Courtney Mayfield MD [address] [facility] [place], [address] [place] [address] Referring Physician Allergy and Immunology 02/12/24 documented as of this encounter
--- OUTSIDE RECORDS SUMMARY | 2024-10-02 00:28 | XMS_ITS | Encounter Summary ---
Author Organization [facility] Address [address] [place] [address] Phone Care Team Providers Care Senior Staff Specialized Employment Name Role Phone Raquel Rayo MD Primary Care Provider [phone] Courtney Mayfield MD Unavailable [phone] Encounter Details Date Type Department Care Team (Late st Contact Info) Description 04/09/2023 Scanned Document [facility] [address] [facility] [address] [place] [address] Courtney Mayfield MD 960 [facility], [address] [place], [place] [phone] Social History Tobacco Use Types Packs/Day Years [...] suspected to have Coronavirus/COVID-19? No / Unsure 04/08/2023 10:57 AM EST documented as of this encounter Plan of Treatment Upcoming Encounters Date Type Department Care Team (Late st Contact Info) Description 11/07/2024 11:30 AM EDT Procedure Visit [facility] [address] [facility] [address] [place] [address] Jodie Matthews MD [address] [place] [address] 12/19/2024 2:45 PM EDT Office Visit [facility] [address] [facility] [address] [place] [address] Courtney Mayfield MD [address] [facility] [place] [facility], [facility] [address] [place] [address] 02/17/2025 11:30 AM EDT Telemedicine [facility] [address] [facility] [address] [place] [phone] Leonila Kern APRN-MISSION ANALYST [address] [place] [facility], [facility] [address] [place] [address] documented as of this encounter Visit Diagnoses Not on filedocumented in this encounter Additional Health Concerns Assessment Noted Time PHQ-9 Depression Total Score: 11 023 10:35 AM EDT A fall risk assessment has been complete d for the patient 02/16/2023 10:23 AM EDT documented as of this encounter Care Teams Senior Staff Specialized Employment Relationship Specialty Start Date End Date Raquel Rayo MD [address] [place] [address] [place] [address] PCP - General 09/19/10 Courtney Mayfield MD [address] [facility] [place] [facility], [facility] [address] [place] [address] Referring Physician Allergy and Immunology 02/12/24 documented as of this encounter
--- OUTSIDE RECORDS SUMMARY | 2024-10-02 00:28 | XMS_ITS | Encounter Summary ---
Author Organization [facility] Address [address] [place] [address] Phone Care Team Providers Care Equipment Mechanic Name Role Phone Raquel Rayo MD Primary Care Provider [phone] Courtney Mayfield MD Unavailable [phone] Encounter Details Date Type Department Care Team (Late st Contact Info) Description 03/09/2023 Scanned Document [facility] [address] [facility] [address] [place] [address] Courtney Mayfield MD 960 [facility], [facility] [address] [place], [place] [phone] Social History Tobacco Use Types Packs/Day Years [...] Description 11/07/2024 11:30 AM EDT Procedure Visit [facility] [address] [facility] 170 [place] [phone] Jodie Matthews MD [address] [place] [address] 12/19/2024 2:45 PM EDT Office Visit [facility] [address] [facility] [address] [place] [address] Courtney Mayfield MD [address] [facility], [facility] [address] [place], [place] [phone] 02/17/2025 11:30 AM EDT Telemedicine [facility] [address] [facility] 130 [place] [address] Leonila Kern APRN-PRATIMA [address] [facility], [facility] 130 [place] [address] documented as of this encounter Visit Diagnoses Not on filedocumented in this encounter Additional Health Concerns Assessment Noted Time PHQ-9 Depression Total Score: 11 023 10:35 AM EDT A fall risk assessment has been complete d for the patient 02/16/2023 10:23 AM EDT documented as of this encounter Care Teams Equipment Mechanic Relationship Specialty Start Date End Date Raquel Rayo MD [address] [place] [address] [place] [address] PCP - General 09/19/10 Courtney Mayfield MD [address] [facility], [facility] [address] [place], [place] [phone] Referring Physician Allergy and Immunology 02/12/24 documented as of this encounter
--- OUTSIDE RECORDS SUMMARY | 2024-10-02 00:28 | XMS_ITS | Encounter Summary ---
Author Organization [facility] Address [address] [place] [address] Phone Care Team Providers Care Programmer Analyst Health It Name Role Phone Raquel Rayo MD Primary Care Provider [phone] Courtney Mayfield MD Unavailable [phone] Encounter Details Date Type Department Care Team (Late st Contact Info) Description 04/13/2023 Scanned Document [facility] [address] [facility] [address] [place] [address] Courtney Mayfield MD 960 [facility], [facility] [address] [place], [place] [phone] Social History Tobacco Use Types Packs/Day Years [...] Description 11/07/2024 11:30 AM EDT Procedure Visit [facility] [address] [facility] 170 [place] [phone] Jodie Matthews MD [address] [place] [address] 12/19/2024 2:45 PM EDT Office Visit [facility] [address] [facility] [address] [place] [address] Courtney Mayfield MD [address] [facility], [address] [phone] 02/17/2025 11:30 AM EDT Telemedicine [facility] [address] [facility] 130 [place] [address] Leonila Kern APRN-CAPTAIN ASSISTANT [address] [facility], [facility] [address] [place] [address] documented as of this encounter Visit Diagnoses Not on filedocumented in this encounter Additional Health Concerns Assessment Noted Time PHQ-9 Depression Total Score: 11 023 10:35 AM EDT A fall risk assessment has been complete d for the patient 02/16/2023 10:23 AM EDT documented as of this encounter Care Teams Programmer Analyst Health It Relationship Specialty Start Date End Date Raquel Rayo MD [address] [place] [address] PCP - General 09/19/10 Courtney Mayfield MD [address] [facility], [facility] [address] [place], [place] [address] Referring Physician Allergy and Immunology 02/12/24 documented as of this encounter
--- OUTSIDE RECORDS SUMMARY | 2024-10-02 00:28 | XMS_ITS | Encounter Summary ---
Author Organization [facility] Address [address] [place] [address] Phone Care Team Providers Care Bark Skinner Name Role Phone Raquel Rayo MD Primary Care Provider [phone] Courtney Mayfield MD Unavailable [phone] Encounter Details Date Type Department Care Team (Late st Contact Info) Description 03/19/2023 Scanned Document [facility] [address] [place] [address] Courtney Mayfield MD 960 [facility], [facility] [address] [place], [place] [phone] Social History Tobacco Use Types Packs/Day Years [...] 11:30 AM EDT Procedure Visit [facility] [address] [place] [address] Jodie Matthews MD [address] [facility] [address] [place] [address] 12/19/2024 2:45 PM EDT Office Visit [facility] [address] [facility] [address] [place] [address] Courtney Mayfield MD [address] [facility], [facility] [address] [place] [address] 02/17/2025 11:30 AM EDT Telemedicine [facility] [address] [facility] 130 [place] [address] Leonila Kern APRN-VACUUM PAN TENDER [address] [facility], [facility] [address] [place] [address] documented as of this encounter Visit Diagnoses Not on filedocumented in this encounter Additional Health Concerns Assessment Noted Time PHQ-9 Depression Total Score: 11 023 10:35 AM EDT A fall risk assessment has been complete d for the patient 02/16/2023 10:23 AM EDT documented as of this encounter Care Teams Bark Skinner Relationship Specialty Start Date End Date Raquel Rayo MD [address] [place] [address] PCP - General 09/19/10 Courtney Mayfield MD [address] [facility], [facility] [address] [place] [address] Referring Physician Allergy and Immunology 02/12/24 documented as of this encounter
--- OUTSIDE RECORDS SUMMARY | 2024-10-02 00:28 | XMS_ITS | Encounter Summary ---
Author Organization [facility] Address [address] [place] [address] Phone Care Team Providers Care Department Of Natural Resources Officer Name Role Phone Raquel Rayo MD Primary Care Provider [phone] Courtney Mayfield MD Unavailable Encounter Details Date Type Department Care Team (Late st Contact Info) Description 03/30/2023 Scanned Document [facility] [address] [facility] [address] [place] [address] Courtney Mayfield MD 960 [facility][note 3], [facility] [address] [place], [place] [phone] Social History Tobacco Use Types Packs/Day Years [...] suspected to have Coronavirus/COVID-19? No / Unsure 03/24/2023 12:39 PM EST documented as of this encounter Plan of Treatment Upcoming Encounters Date Type Department Care Team (Late st Contact Info) Description 11/07/2024 11:30 AM EDT Procedure Visit [facility] [address] [facility] 170 [place] [address] Jodie Matthews MD [address] [place] [address] 12/19/2024 2:45 PM EDT Office Visit [facility] [address] [facility] [address] [place] [address] Courtney Mayfield MD [address] [facility], [address] [phone] 02/17/2025 11:30 AM EDT Telemedicine [facility] [address] [facility] 130 [place] [phone] Leonila Kern APRN-INCOME TAX ADVISOR [address] [facility], [facility] [address] [place] [address] documented as of this encounter Visit Diagnoses Not on filedocumented in this encounter Additional Health Concerns Assessment Noted Time PHQ-9 Depression Total Score: 11 023 10:35 AM EDT A fall risk assessment has been complete d for the patient 02/16/2023 10:23 AM EDT documented as of this encounter Care Teams Department Of Natural Resources Officer Relationship Specialty Start Date End Date Raquel Rayo MD [address] [place] [address] PCP - General 09/19/10 Courtney Mayfield MD [address] [facility], [facility] [address] [place], [place] [phone] Referring Physician Allergy and Immunology 02/12/24 documented as of this encounter
--- OUTSIDE RECORDS SUMMARY | 2024-10-02 00:28 | XMS_ITS | Encounter Summary ---
Author Organization [facility] Address [address] [place] [address] Phone Care Team Providers Care Dough Mixer Name Role Phone Raquel Rayo MD Primary Care Provider [phone] Courtney Mayfield MD Unavailable [phone] Encounter Details Date Type Department Care Team (Late st Contact Info) Description 03/31/2023 Scanned Document [facility] [address] [facility] [address] [place] [address] Courtney Mayfield MD 960 [facility], [facility] [address] [place], [place] [phone] Social History Tobacco Use Types Packs/Day Years [...] Description 11/07/2024 11:30 AM EDT Procedure Visit [facility] [address] [facility] 170 [place] [phone] Jodie Matthews MD [address] [place] [address] 12/19/2024 2:45 PM EDT Office Visit [facility] [address] [facility] [address] [place] [address] Courtney Mayfield MD [address] [facility], [address] [phone] 02/17/2025 11:30 AM EDT Telemedicine [facility] [address] [facility] 130 [place] [phone] Leonila Kern APRN-SKID WRAPPER [address] [facility], [facility] 130 [place] [address] documented as of this encounter Visit Diagnoses Not on filedocumented in this encounter Additional Health Concerns Assessment Noted Time PHQ-9 Depression Total Score: 11 023 10:35 AM EDT A fall risk assessment has been complete d for the patient 02/16/2023 10:23 AM EDT documented as of this encounter Care Teams Dough Mixer Relationship Specialty Start Date End Date Raquel Rayo MD [address] [place] [address] PCP - General 09/19/10 Courtney Mayfield MD [address] [facility], [facility] [address] [place], [place] [phone] Referring Physician Allergy and Immunology 02/12/24 documented as of this encounter
--- OUTSIDE RECORDS SUMMARY | 2024-10-02 00:28 | XMS_ITS | Encounter Summary ---
Author Organization [facility] Address [address] [place] [address] Phone Care Team Providers Care Cool Roofing Installer Name Role Phone Raquel Raoy MD Primary Care Provider [phone] Courtney Mayfield MD Unavailable [phone] Encounter Details Date Type Department Care Team (Late st Contact Info) Description 04/10/2023 Scanned Document [facility] [address] [facility] [address] [place] [address] Courtney Mayfield MD 960 [facility], [facility] [address] [place], [place] [phone] Social History Tobacco Use Types Packs/Day Years [...] 11/07/2024 11:30 AM EDT Procedure Visit [facility] [address] [facility] 170 [place] [phone] Jodie Matthews MD [address] [place] [address] 12/19/2024 2:45 PM EDT Office Visit [facility] [address] [facility] [address] [place] [address] Courtney Mayfield MD [address] [facility], [address] [phone] 02/17/2025 11:30 AM EDT Telemedicine [facility] [address] [facility] 130 [place] [phone] Leonila Kern APRN-DISTILLERY WORKER GENERAL [address] [facility], [facility] 130 [place] [address] documented as of this encounter Visit Diagnoses Not on filedocumented in this encounter Additional Health Concerns Assessment Noted Time PHQ-9 Depression Total Score: 11 023 10:35 AM EDT A fall risk assessment has been complete d for the patient 02/16/2023 10:23 AM EDT documented as of this encounter Care Teams Cool Roofing Installer Relationship Specialty Start Date End Date Raquel Rayo MD [address] [place] [address] PCP - General 09/19/10 Courtney Mayfield MD [address] [facility], [facility] [address] [place], [place] [phone] Referring Physician Allergy and Immunology 02/12/24 documented as of this encounter
--- OUTSIDE RECORDS SUMMARY | 2024-10-02 00:28 | XMS_ITS | Clinical Summary ---
Author Organization [facility] Address [address] [place] [address] Care Team Providers Care Coal Trimmer Name Role Phone Raquel Rayo MD Primary Care Provider [phone] Allergies Active Allergy Reactions Criticality Noted Date Comments Baclofen Other (See Comments) 01/17/2017 Muscle weakness Ciprofloxacin Rash Low 01/17/2017 Indomethacin Other (See Comments) 01/17/2017 Low BP Penicillins Other (See Comments) 01/17/2017 RASH Propranolol Rash Low 10/27/2018 Severe low bp and kidneys shutting down. Sulfa Antibiotics Other (See Comments) 09/28/19 18 HIVES Diazepam Other (See Comments) 09/27/2017 DEPRESSION Medications celecoxib (CELEBREX) 200 MG capsule Take 200 mg by mouth 4 times daily Active tamsulosin (FLOMAX) 0.4 MG capsule Take 0.8 mg by mouth nightly Active fluticasone (FLONASE) 50 MCG/ACT nasal sprayIndications :each nostril 1 spray by Nasal route daily Active Albuterol Sulfate (PROAIR HFA IN)Indications:2 puffs every 4 hours prn Inhale into the lungs Active Catheters (SELF-CATH PLUS STRAIGHT TIP) MISC Prelube Cure ultra M 14 F Straight Cath QID 120 each 1 9 Active benralizumab (FASENRA) 30 MG/ML SOSY injectionIndicat ions:given every 2 months Indications: given every 2 months 8 Active potassium chloride (KLOR-CON M) 20 MEQ extended release tablet Take 1 tablet by mouth 2 times daily 180 tablet 9 Active albuterol (PROVENTIL) (2.5 MG/3ML) 0.083% nebulizer solution Take 3 mLs by nebulization every 6 hours as needed for Wheezing 120 each 11 9 Active Additional Information Patient not taking.Reported on 12/08/2019 nitrofurantoin, macrocrystal-mon ohydrate, (MACROBID) 100 MG capsule Take 100 mg by mouth daily 0 Active cloNIDine (CATAPRES) 0.1 MG tabletIndication s:Essential hypertension TAKE 1 TABLET BY MOUTH TWICE A DAY 180 tablet 1 0 Active atorvastatin (LIPITOR) 40 MG tabletIndication s:Dyslipidemia TAKE 1 TABLET BY MOUTH EVERY DAY 90 tablet 3 0 Active amLODIPine (NORVASC) 5 MG tablet TAKE 1 TABLET BY MOUTH EVERY DAY 90 tablet 3 0 Active primidone (MYSOLINE) 250 MG tabletIndication s:patient stated he takes in evening Take 250 mg by mouth daily Indications: patient stated he takes in evening Active DULoxetine (CYMBALTA) 60 MG extended release capsuleIndicatio ns:Chronic peripheral neuropathic pain,Pins and needles sensation Take 1 capsule by mouth daily 30 capsule 5 0 Active primidone (MYSOLINE) 50 MG tablet 3 tablets at 7 am 90 tablet 3 0 Active spironolactone (ALDACTONE) 25 MG tablet TAKE 1 TABLET BY MOUTH EVERY DAY 90 tablet 3 0 Active omeprazole (PRILOSEC) 20 MG delayed release capsule TAKE 1 CAPSULE BY MOUTH TWICE A DAY 180 capsule 1 0 Active naratriptan (AMERGE) 2.5 MG tabletIndication s:Intractable chronic migraine without aura and without status migrainosus Take 1 tablet by mouth once as needed for Migraine 2.5 mg at onset of headache, may repeat in 4 hours if needed 9 tablet 5 0 Active topiramate (TOPAMAX) 200 MG tabletIndication s:1 tab in AM and 1 tab at 5:00 PM Take 1 tablet by mouth 2 times daily Indications: 1 tab in AM and 1 tab at 5:00 PM 60 tablet 5 0 Active topiramate (TOPAMAX) 100 MG tabletIndication s:1 tablet at noon and 1 at bedtime Take 1 tablet by mouth 2 times daily Indications: 1 tablet at noon and 1 at bedtime 60 tablet 5 0 Active verapamil (CALAN SR) 120 MG extended release tablet Take 1 tablet by mouth daily 30 tablet 5 0 Active losartan (COZAAR) 100 MG tabletIndication s:Essential hypertension TAKE 1 TABLET BY MOUTH EVERY DAY 90 tablet 1 0 Active gabapentin (NEURONTIN) 800 MG tablet TAKE 1 TABLET BY MOUTH 4 TIMES DAILY 120 tablet 2 0 Active amitriptyline (ELAVIL) 100 MG tablet Take 50 mg by mouth nightly 8 Active oxyCODONE (ROXICODONE) 5 MG immediate release tablet Take 5 mg by mouth as needed. 0 Active montelukast (SINGULAIR) 10 MG tabletIndication s:Seasonal allergic rhinitis due to pollen Take 1 tablet by mouth daily 90 tablet 3 0 Active levocetirizine (XYZAL) 5 MG tabletIndication s:Seasonal allergic rhinitis due to pollen Take 0.5 tablets by mouth nightly 45 tablet 1 0 Active Umeclidinium [place] 62.5 MCG/INH AEPB Inhale 1 puff into the lungs daily 1 each 5 0 Active levalbuterol (XOPENEX) 0.63 MG/3ML nebulization Take 1 ampule by nebulization every morning Pt to take as ONE every morning. Active levalbuterol (XOPENEX) 0.63 MG/3ML nebulization Take 1 ampule by nebulization every 3-4 hours as needed for Wheezing Active tiotropium (SPIRIVA HANDIHALER) 18 MCG inhalation capsule Inhale 1 capsule into the lungs daily 1 capsule 11 0 Active primidone (MYSOLINE) 50 MG tabletIndication s:Mixed action and resting tremor,Action tremor TAKE 3 TABLETS BY MOUTH DAILY AT 7 AM AND TAKE ONE TABLET DAILY AT NOON 360 tablet 1 0 Active fluticasone-los nterol (BREO ELLIPTA) 100-25 MCG/INH AEPB inhaler Inhale 1 puff into the lungs daily for 7 days 7 each 1 Active budesonide-formo terol (SYMBICORT) 160-4.5 MCG/ACT AEROIndications: Severe persistent asthma without complication (HCC) INHALE 2 PUFFS TWICE DAILY 30.6 Inhaler 1 1 Active Active Problems Problem Noted Date Diagnosed Date Dyslipidemia 10/31/2019 Seasonal allergic rhinitis due to pollen 020 Intractable chronic migraine without aura and without status migrainosus 09/15/2019 Mixed action and resting tremor 09/15/2019 Action tremor 08/13/2019 Chronic migraine without aur a without status migrainosus, not intractable 08/13/2019 Cerebrovascular disease 08/13/2019 Oropharyngeal dysphagia 06/06/2019 Pneumonia of right upper lobe due to infectious organism 05/07/2019 Bilateral carpal tunnel syndrome 04/14/2019 Bilateral occipital neuralgia 03/14/2019 Essential hypertension 01/18/2019 Chronic obstructive pulmonary disease 01/18/2019 Severe persistent asthma without complication Lymphadenopathy, inguinal 12/13/2018 Urinary retention 12/10/2018 Neurogenic bladder 12/10/2018 Tremor due to disorder of central nervous system 10/28/2018 Neuropathy 10/28/2018 Intractable migraine without aura and without status migrainosus 10/28/2018 Pneumonia of right middle lo be due to methicillin susceptible Staphylococcus aureus (MSSA) Immunizations Immunization Administration Dates Next Due Influenza Virus Vaccine 05/04/2017 Influenza, AFLURIA (age 3 y+ ), FLUZONE, (age 6 mo+), Quadv MDV, 0.5mL 05/04/2017 Influenza, FLUARIX, FLULAVAL , FLUZONE (age 6 mo+) and AFLURIA, (age 3 y+), Quadv PF, 0.5mL 03/04/2019,02/05/2018 Pneumococcal, PPSV23, PNEUMO VAX 23, (age 2y+), SC/IM, 0.5mL 05/04/2017 Family History Medical History Relation Name Comments Cancer Brother prostate Alzheimer's Disease Father Heart Failure Father Emphysema Mother Stroke Mother Relation Name Status Comments Brother Alive Father Maternal Grandfather Maternal Grandmother Mother Paternal Grandfather Paternal Grandmother Social History Tobacco Use Types Packs/Day Years Used Date Smoking Tobacco: Never Smokeless Tobacco: Never Alcohol Use Standard Drinks/Week Comments Not Currently 0 (1 standard drink = 0.6 oz pur e alcohol) PHQ-2 Answer Date Recorded PHQ-2 Score 1 10/27/2018 Sex and Gender Information Value Date Recorded Sex Assigned at Not on file Legal Sex Male 8:52 PM EDT Gender Identity Not on file Sexual Orientation Not on file Last Filed Vital Signs Vital Sign Reading Time Taken Comments Blood Pressure 132/83 09/08/2020 5:45 PM EDT Pulse 86 09/08/2020 5:45 PM EDT Temperature 35.7 C (96.3 F) 09/08/2020 11:58 AM EDT Respiratory Rate 18 09/08/2020 5:45 PM EDT Oxygen Saturation 100% 09/08/2020 5:45 PM EDT Inhaled Oxygen Concentration - - Weight 81.6 kg (180 lb) 09/08/2020 12:03 PM EDT Height 177.8 cm (5' 10 ) 09/08/2020 12:03 PM EDT Body Mass Index 25.83 09/08/2020 12:03 PM EDT Plan of Treatment Health Maintenance Due Date Last Done Comments Depression Screen 1973 HIV screen 01/20/1976 Hepatitis C screen 1979 Colonoscopy 2006 Colorectal Cancer Screen 2006 FIT/FOBT: Average risk 2006 Fecal-DNA (Cologuard): Average risk 2006 Sigmoidoscopy/CT colonography 2006 Lipids 04/06/2020 04/06/2019, 11/11/2018 Shingles vaccine (2 of 2) 04/09/2020 02/13/2020 Pneumococcal 50+ years Vaccine (2 of 2 - PCV) 12/10/2021 12/10/2020, 05/04/2017 COVID-19 Vaccine (2 - season) 2024 08/03/2021 Flu vaccine (Season Ended) 12/02/202404/14, 01/16/2020, 03/04/2019, Additional history exists DTaP/Tdap/Td vaccine (2 - Td or Tdap) 04/05/2032 04/05/2022 Respiratory Syncytial Virus (RSV) or age 60 yrs+ (1 - 1-dose 75+ series) 01/20/2036 Prostate Specific Antigen (PSA) Screening or Monitoring Discontinued 11/11/2018 Diabetes screen Discontinued 04/14/2019 Pneumococcal 0-49 years Vaccine Discontinued 12/10/2020, 05/04/2017 Hepatitis A vaccine Aged Out No longe r eligible based on patient's age to complete this topic Hepatitis B vaccine Aged Out No longe r eligible based on patient's age to complete this topic Hib vaccine Aged Out No longer eligi ble based on patient's age to complete this topic Meningococcal (ACWY) vaccine Aged Out No longer eligible based on patient's age to complete this topic Meningococcal B vaccine Aged Out No l onger eligible based on patient's age to complete this topic Polio vaccine Aged Out No longer elig ible based on patient's age to complete this topic Procedures Procedure Name Priority Date/Time Associated Diagnosis Comments POCT GLYCOSYLATED HEMOGLOBIN (HGB A1C) Routine 04/14/2019 8:37 AM EST Elevated random blood glucose level LIPID PANEL Routine 04/06/2019 12:55 PM EST Dyslipidemia PSA SCREENING Routine 11/11/2018 10:16 AM EDT Prostate cancer screening from Last 3 Months or Most Recently Relevant to Health Maintenance Results * POCT glycosylated hemoglobin (Hb A1C) (04/14/2019 8:37 AM EST) Hemoglobin A1C 5.4 % BLOOD SPECIMEN / Unknown 04/14/2019 8:37 AM EST Oni Rowan Dealibia EMPLOYEE'S REPRESENTATIVE - FREIGHT CHECKER POINT OF CARE TEST HECTOR MEDEROS Final Result * Lipid Panel (04/06/2019 12:55 PM EST) Cholesterol 170 <200 mg/dL 04/06/2019 12:55 PM EST [facility] Comment: Cholesterol Guidelines: <200 Desirable 200-240 Borderline >240 Undesirable HDL 68 >40 mg/dL 04/06/2019 12:55 PM EST [facility] Comment: HDL Guidelines: <40 Undesirable 40-59 Borderline >59 Desirable LDL Cholesterol 77 0 - 130 mg/dL 04/06/2019 12:55 PM [facility] Comment: LDL Guidelines: <100 Desirable 100-129 Near to/above Desirable 130-159 Borderline >159 Undesirable Direct (measured) LDL and calculated LDL are not interchangeable tests. Chol/HDL Ratio 2.5 <5 04/06/2019 12:55 PM [facility] Comment: Triglycerides 124 <150 mg/dL 04/06/2019 12:55 PM [facility] Comment: Triglyceride Guidelines: <150 Desirable 150-199 Borderline 200-499 High >499 Very high Based on AHA Guidelines for fasting triglyceride, February 2012. VLDL NOT REPORTED 1 - 30 mg/dL 04/06/2019 12:55 PM [facility] BLOOD SPECIMEN / Unknown 04/06/2019 12:55 PM EST 04/06/2019 12:56 PM EST Oni Gr EMPLOYEE'S REPRESENTATIVE [facility] CHEMISTRY ORDERABLES Fi nal Result Performing Organization Address [facility] Co de Phone Number [facility] [address] [place] [address] * PSA Screening (11/11/2018 10:16 AM EDT) PSA 2.88 <4.1 ug/L 11/11/2018 10:16 AM EDT [facility] Comment: The Jessica ECLIA assay is used. Results obtained with different assay methods cannot be used interchangeably. BLOOD SPECIMEN / Unknown 11/11/2018 10:16 AM EDT 11/11/2018 10:17 AM EDT Oni Gr EMPLOYEE'S REPRESENTATIVE - FREIGHT CHECKER CHEMISTRY ORDERABLES Fi nal Result Performing Organization Address [facility] Co de Phone Number [facility] [address] [place] [address] from Last 3 Months or Most Recently Relevant to Health Maintenance Insurance [facility] MEDICARE [facility] MEDICARE Care Teams Coal Trimmer Relationship Specialty Start Date End Date Raquel Rayo MD PCP - General Family Medicine 11/21/19
--- OUTSIDE RECORDS SUMMARY | 2024-10-02 00:28 | XMS_ITS | Encounter Summary ---
Author Organization [facility] Address [address] [place] [address] Phone Care Team Providers Care Promos Executive Producer Name Role Phone Raquel Rayo MD Primary Care Provider Courtney Mayfield MD Unavailable [phone] Encounter Details Date Type Department Care Team (Late st Contact Info) Description 04/13/2023 Scanned Document [facility] [address] [facility] [address] [place] [address] Courtney Mayfield MD 960 [facility] [place], [facility] [address] [place], [place] [phone] Social History Tobacco Use Types Packs/Day Years [...] Description 11/07/2024 11:30 AM EDT Procedure Visit [facility] [address] [facility] [address] [place] [phone] Jodie Matthews MD [address] [place] [address] 12/19/2024 2:45 PM EDT Office Visit [facility] [address] [facility] [address] [place] [phone] Courtney Mayfield MD [address] [facility], [address] [phone] 02/17/2025 11:30 AM EDT Telemedicine [facility] [address] [facility] [address] [place] [phone] Leonila Kern APRN-TRACTOR TECHNICIAN [address] [facility], [facility] [address] [place] [address] documented as of this encounter Visit Diagnoses Not on filedocumented in this encounter Additional Health Concerns Assessment Noted Time PHQ-9 Depression Total Score: 11 023 10:35 AM EDT A fall risk assessment has been complete d for the patient 02/16/2023 10:23 AM EDT documented as of this encounter Care Teams Promos Executive Producer Relationship Specialty Start Date End Date Raquel Rayo MD [address] [place] [address] PCP - General 09/19/10 Courtney Mayfield MD [address] [facility], [facility] [address] [place], [place] [phone] Referring Physician Allergy and Immunology 02/12/24 documented as of this encounter
--- OUTSIDE RECORDS SUMMARY | 2024-10-02 00:28 | XMS_ITS | Encounter Summary ---
Author Organization [facility] Address [address] [place] [address] Phone Care Team Providers Care Tonger Name Role Phone Raquel Rayo MD Primary Care Provider [phone] Courtney Mayfield MD Unavailable [phone] Encounter Details Date Type Department Care Team (Late st Contact Info) Description 03/09/2023 Scanned Document [facility] [address] [facility] [address] [place] [address] Courtney Mayfield MD 960 [facility], [facility] [address] [place], [place] [phone] Social History Tobacco Use Types Packs/Day Years [...] Visit [facility] [address] [facility] [address] [place] [phone] Jodie Matthews MD [address] [place] [address] 12/19/2024 2:45 PM EDT Office Visit [facility] [address] [facility] [address] [place] [phone] Courtney Mayfield MD [address] [facility], [facility] [address] [place], [place] [phone] 02/17/2025 11:30 AM EDT Telemedicine [facility] [address] [facility] [address] [place] [phone] Leonila Kern APRN-PRATIMA [address] [facility], [facility] [address] [place] [address] documented as of this encounter Visit Diagnoses Not on filedocumented in this encounter Additional Health Concerns Assessment Noted Time PHQ-9 Depression Total Score: 11 023 10:35 AM EDT A fall risk assessment has been complete d for the patient 02/16/2023 10:23 AM EDT documented as of this encounter Care Teams Tonger Relationship Specialty Start Date End Date Raquel Rayo MD [address] [place] [address] [place] [address] PCP - General 09/19/10 Courtney Mayfield MD [address] [facility], [facility] [address] [place], [place] [phone] Referring Physician Allergy and Immunology 02/12/24 documented as of this encounter
--- OUTSIDE RECORDS SUMMARY | 2024-10-02 00:28 | XMS_ITS | Encounter Summary ---
Author Organization [facility] Address [address] [place] [address] Phone Care Team Providers Care Service Department Manager Name Role Phone Raquel Rayo MD Primary Care Provider [phone] Courtney Mayfield MD Unavailable [phone] Encounter Details Date Type Department Care Team (Late st Contact Info) Description 03/21/2020 Orders Only [facility] [address] [place] [address] Conversion, Onbase Social History Tobacco Use Types [...] 11/07/2024 11:30 AM EDT Procedure Visit [facility] [address] [place] [phone] Jodie Matthews MD [address] [place] [address] 12/19/2024 2:45 PM EDT Office Visit [facility][note 3] [address] [facility] [address] [place] [phone] Courtney Mayfield MD [address] [facility][note 3], [address] [place] [address] 02/17/2025 11:30 AM EDT Telemedicine [facility] [address] [facility] [address] [place] [phone] Leonila Kern APRN-MEETING MANAGER [address] [facility], [facility] [address] [place] [address] Scheduled Orders Name Type Priority Associated Diagnoses Orde r Schedule SLEEP STUDY ORDER - ONBASE SCAN Sleep Center Ordered: 020 documented as of this encounter Visit Diagnoses Not on filedocumented in this encounter Care Teams Service Department Manager Relationship Specialty Start Date End Date Raquel Rayo MD [address] [place] [address] [place] [address] PCP - General 09/19/10 Courtney Mayfield MD [address] [facility][note 3], [address] [place] [address] Referring Physician Allergy and Immunology 02/12/24 documented as of this encounter
--- OUTSIDE RECORDS SUMMARY | 2024-10-02 00:28 | XMS_ITS | Encounter Summary ---
Author Organization [facility] Address [address] [place] [address] Phone Care Team Providers Care Practice Architect Name Role Phone Raquel Rayo MD Primary Care Provider [phone] Courtney Myafield MD Unavailable [phone] Encounter Details Date Type Department Care Team (Late st Contact Info) Description 03/30/2023 Scanned Document [facility] [address] [facility] [address] [place] [address] Courtney Mayfield MD 960 [facility], [facility] [address] [place], [place] [phone] Social History Tobacco Use Types Packs/Day Years [...] Description 11/07/2024 11:30 AM EDT Procedure Visit [facility] [address] [facility] [address] [place] [phone] Jodie Matthews MD [address] [place] [address] 12/19/2024 2:45 PM EDT Office Visit [facility] [address] [facility] [address] [place] [phone] Courtney Mayfield MD [address] [facility], [address] [phone] 02/17/2025 11:30 AM EDT Telemedicine [facility] [address] [facility] [address] [place] [phone] Leonila Kern APRN-SEMIAUTOMATIC STITCHER OPERATOR [address] [facility], [facility] [address] [place] [address] documented as of this encounter Visit Diagnoses Not on filedocumented in this encounter Additional Health Concerns Assessment Noted Time PHQ-9 Depression Total Score: 11 023 10:35 AM EDT A fall risk assessment has been complete d for the patient 02/16/2023 10:23 AM EDT documented as of this encounter Care Teams Practice Architect Relationship Specialty Start Date End Date Raquel Ryao MD [address] [place] [address] PCP - General 09/19/10 Courtney Mayfield MD [address] [facility], [facility] [address] [place], [place] [phone] Referring Physician Allergy and Immunology 02/12/24 documented as of this encounter
--- OUTSIDE RECORDS SUMMARY | 2024-10-02 00:28 | XMS_ITS | Encounter Summary ---
Author Organization [facility] Address [address] [address] Phone Care Team Providers Care Business Process Analyst Name Role Phone Raquel Rayo MD Primary Care Provider [phone] Courtney Mayfield MD Unavailable [phone] Encounter Details Date Type Department Care Team (Late st Contact Info) Description 04/13/2023 Scanned Document [facility] [address] [facility] [address] [place] [address] Courtney Mayfield MD 960 [facility] [address] [place], [place] [phone] Social History Tobacco Use Types Packs/Day Years [...] Description 11/07/2024 11:30 AM EDT Procedure Visit [facility] [address] [facility] [address] [place] [phone] Jodie Matthews MD [address] [place] [address] 12/19/2024 2:45 PM EDT Office Visit [facility] [address] [facility] [address] [place] [phone] Courtney Mayfield MD [address] [facility], [address] [phone] 02/17/2025 11:30 AM EDT Telemedicine [facility] [address] [facility] [address] [place] [phone] Leonila Kern APRN-MACHINE OVERHAULER [address] [facility], [facility] [address] [place] [address] documented as of this encounter Visit Diagnoses Not on filedocumented in this encounter Additional Health Concerns Assessment Noted Time PHQ-9 Depression Total Score: 11 023 10:35 AM EDT A fall risk assessment has been complete d for the patient 02/16/2023 10:23 AM EDT documented as of this encounter Care Teams Business Process Analyst Relationship Specialty Start Date End Date Raquel Rayo MD [address] [place] [address] PCP - General 09/19/10 Courtney Mayfield MD [address] [facility], [facility] [address] [place], [place] [phone] Referring Physician Allergy and Immunology 02/12/24 documented as of this encounter
--- OUTSIDE RECORDS SUMMARY | 2024-10-02 00:29 | XMS_ITS | Encounter Summary ---
Author Organization [facility] Address [address] [place] [address] Care Team Providers Care Drop Hammer Setter Up Name Role Phone Unavailable Primary Care Provider Unavailabl e Encounter Details Date Type Department Care Team (Late st Contact Info) Description 05/31/2024 Abstract [facility] [address] [place] [address] Melissa Wilson, METER READER [address] [place] [address] Social History Tobacco Use Types Packs/Day Years Used Date Smoking Tobacco: Never Assessed Sex and Gender Information Value Date Recorded Sex Assigned at Not on file Legal Sex Male 8:25 PM EDT Gender Identity Not on file Sexual Orientation Not on file documented as of this encounter Plan of Treatment Not on file documented as of this encounter Visit Diagnoses Not on filedocumented in this encounter
--- OUTSIDE RECORDS SUMMARY | 2024-10-02 00:29 | XMS_ITS | Encounter Summary ---
Author Organization [facility] Address [address] [place] [address] Phone Care Team Providers Care Pipe Coverer And Insulator Name Role Phone Raquel Rayo MD Primary Care Provider [phone] Courtney Mayfield MD Unavailable [phone] Encounter Details Date Type Department Care Team (Late st Contact Info) Description 08/21/2023 Scanned Document [facility] [address] [place] [address] Courtney Mayfield MD 960 [facility], [facility] [address] [place], [place] [id number] Social History Tobacco Use Types Packs/Day Years Used Date Smoking Tobacco: Never Smokeless Tobacco: Never Alcohol Use Standard Drinks/Week Comments Never 0 (1 standard drink = 0.6 oz pur e alcohol) PHQ-2 Answer Date Recorded Patient Health Questionnaire-2 Score 3 06/22/2023 Sex and Gender Information Value Date Recorded Sex Assigned at Not on file Legal Sex Male 11:51 PM EST Gender Identity Not on file Sexual Orientation Not on file documented as of this encounter Plan of Treatment Upcoming Encounters Date Type Department Care Team (Late st Contact Info) Description 11/07/2024 11:30 AM EDT Procedure Visit [facility] [address] [place] [address] Jodie Matthews MD [address] [facility] 170 [place] [address] 12/19/2024 2:45 PM EDT Office Visit [facility] [address] [facility] [address] [place] [address] Courtney Mayfield MD [address] [facility], [facility] [address] [place] [address] 02/17/2025 11:30 AM EDT Telemedicine [facility] [address] [facility] 130 [place] [phone] Leonila Kern APRN-INTELLECTUAL PROPERTY PARALEGAL [address] [facility], [facility] 130 [place] [address] documented as of this encounter Visit Diagnoses Not on filedocumented in this encounter Additional Health Concerns Assessment Noted Time PHQ-9 Depression Total Score: 10 024 3:38 PM EST A fall risk assessment has been complete d for the patient 06/22/2023 3:38 PM EST documented as of this encounter Care Teams Pipe Coverer And Insulator Relationship Specialty Start Date End Date Raquel Rayo MD [address] [place] [address] PCP - General 09/19/10 Courtney Mayfield MD [address] [facility], [facility] [address] [place] [address] Referring Physician Allergy and Immunology 02/12/24 documented as of this encounter
--- OUTSIDE RECORDS SUMMARY | 2024-10-02 00:29 | XMS_ITS | Encounter Summary ---
Author Organization [facility] Address [address] [place] [address] Phone Care Team Providers Care Medical Transcriber Name Role Phone Raquel Rayo MD Primary Care Provider [phone] Courtney Mayfield MD Unavailable [phone] Encounter Details Date Type Department Care Team (Late st Contact Info) Description 09/19/2021 Orders Only [facility] [address] [place] [address] Conversion, Onbase Social History Tobacco Use Types [...] Description 11/07/2024 11:30 AM EDT Procedure Visit [facility] [address] [place] [address] Jodie Matthews MD [address] [place] [address] 12/19/2024 2:45 PM EDT Office Visit [facility] [address] [place] [address] Courtney Mayfield MD [address] [facility], [place] [address] [place] [address] 02/17/2025 11:30 AM EDT Telemedicine [facility] [address] [place] [facility] 130 [place] [address] Leonila Kern APRN-HEMODIALYSIS RN [address] [facility], [facility] 130 [place] [address] Scheduled Orders Name Type Priority Associated Diagnoses Orde r Schedule OUTSIDE LAB SCAN Lab Ordered: 09/19/2021 documented as of this encounter Visit Diagnoses Not on filedocumented in this encounter Care Teams Medical Transcriber Relationship Specialty Start Date End Date Raquel Rayo MD [address] [place] [address] [place] [address] PCP - General 09/19/10 Courtney Mayfield MD [address] [facility], [place] [address] [place] [address] Referring Physician Allergy and Immunology 02/12/24 documented as of this encounter
--- OUTSIDE RECORDS SUMMARY | 2024-10-02 00:29 | XMS_ITS | Encounter Summary ---
Author Organization [facility] Address [address] [place] [address] Care Team Providers Care House Mover Name Role Phone Unavailable Primary Care Provider Unavailabl e Encounter Details Date Type Department Care Team (Late st Contact Info) Description 06/02/2023 Abstract [facility] [address] [place] [address] Luis Luis, DO [address] [place] [address] Social History Tobacco Use Types Packs/Day Years [...]
--- OUTSIDE RECORDS SUMMARY | 2024-10-02 00:29 | XMS_ITS | Encounter Summary ---
Author Organization [facility] Address [address] [place] [address] Phone Care Team Providers Care High Worker Name Role Phone Raquel Rayo MD Primary Care Provider [phone] Courtney Mayfield MD Unavailable [phone] Encounter Details Date Type Department Care Team (Late st Contact Info) Description 06/14/2021 Orders Only [facility] [address] [place] [address] Conversion, Onbase Social History Tobacco Use Types [...] 11/07/2024 11:30 AM EDT Procedure Visit [facility] [address] [place] [address] Jodie Matthews MD [address] [place] [address] 12/19/2024 2:45 PM EDT Office Visit [facility] [address] [place] [address] Courtney Mayfield MD [address] [facility]note 2], [place] [address] [place] [address] 02/17/2025 11:30 AM EDT Telemedicine [facility] [address] [facility] 130 [place] [address] Leonila Kern APRN-FACER OPERATOR [address] [facility], [facility] 130 [place] [address] Scheduled Orders Name Type Priority Associated Diagnoses Orde r Schedule OUTSIDE LAB SCAN Lab Ordered: 06/14/2021 documented as of this encounter Visit Diagnoses Not on filedocumented in this encounter Care Teams High Worker Relationship Specialty Start Date End Date Raquel Rayo MD [address] [place] [address] [place] [address] PCP - General 09/19/10 Courtney Mayfield MD [address] [facility]note 2], [place] [address] [place] [address] Referring Physician Allergy and Immunology 02/12/24 documented as of this encounter
--- OUTSIDE RECORDS SUMMARY | 2024-10-02 00:29 | XMS_ITS | Encounter Summary ---
Author Organization [facility] Address [address] [place] [address] Phone Care Team Providers Care Graduate Nurse Name Role Phone Raquel Rayo MD Primary Care Provider [phone] Courtney Mayfield MD Unavailable [phone] Encounter Details Date Type Department Care Team (Late st Contact Info) Description 06/03/2022 Orders Only [facility] [address] [place] [address] Conversion, Onbase Social History Tobacco Use Types [...] Description 11/07/2024 11:30 AM EDT Procedure Visit [facility] [address] [place] [address] Jodie Matthews MD [address] [place] [address] 12/19/2024 2:45 PM EDT Office Visit [facility] [address] [place] [address] Courtney Mayfield MD [address] [facility], [place] [address] [place] [address] 02/17/2025 11:30 AM EDT Telemedicine [facility] [address] [place] [facility] 130 [place] [address] Leonila Kern APRN-MANAGER HOUSEKEEPING [address] [facility], [facility] 130 [place] [address] Scheduled Orders Name Type Priority Associated Diagnoses Orde r Schedule OUTSIDE LAB SCAN Lab Ordered: 06/03/2022 OUTSIDE LAB SCAN Lab Ordered: 06/03/2022 documented as of this encounter Visit Diagnoses Not on filedocumented in this encounter Care Teams Graduate Nurse Relationship Specialty Start Date End Date Raquel Rayo MD [address] [place] [address] PCP - General 09/19/10 Courtney Mayfield MD [address] [facility], [place] [address] [place] [address] Referring Physician Allergy and Immunology 02/12/24 documented as of this encounter
--- OUTSIDE RECORDS SUMMARY | 2024-10-02 00:29 | XMS_ITS | Encounter Summary ---
Author Organization [facility] Address [address] [place] [address] Phone Care Team Providers Care Cryogenic Transport Driver Name Role Phone Raquel Rayo MD Primary Care Provider [phone] Courtney Mayfield MD Unavailable Encounter Details Date Type Department Care Team (Late st Contact Info) Description 03/10/2018 Orders Only [facility] [address] [place] [address] Conversion, Onbase Social History Tobacco Use Types [...] Description 11/07/2024 11:30 AM EDT Procedure Visit [facility] [address] [place] [address] Jodie Matthews MD [address] [place] [address] 12/19/2024 2:45 PM EDT Office Visit [facility] [address] [facility] 2[address] [place] [address] Courtney Mayfield MD [address] [facility], [place] [address] [place] [address] 02/17/2025 11:30 AM EDT Telemedicine [facility] [address] [place] [facility] 130 [place] [address] Leonila Kern APRN-PASTEURIZER [address] [facility], [facility] 130 [place] [address] Scheduled Orders Name Type Priority Associated Diagnoses Orde r Schedule AUDIOLOGY REPORT - ONBASE SCAN Audiology Ordered: 018 documented as of this encounter Visit Diagnoses Not on filedocumented in this encounter Care Teams Cryogenic Transport Driver Relationship Specialty Start Date End Date Raquel Rayo MD [address] [place] [address] [place] [address] PCP - General 09/19/10 Courtney Mayfield MD [address] [facility], [place] [address] [place] [address] Referring Physician Allergy and Immunology 02/12/24 documented as of this encounter
--- OUTSIDE RECORDS SUMMARY | 2024-10-02 00:29 | XMS_ITS | Encounter Summary ---
Author Organization [facility] Address [address] [place] [address] Phone Care Team Providers Care Tetryl Nitrator Operator Name Role Phone Raquel Rayo MD Primary Care Provider [phone] Courtney Mayfield MD Unavailable [phone] Encounter Details Date Type Department Care Team (Late st Contact Info) Description 04/20/2023 Scanned Document [facility] [address] [facility] 2100 [place] [address] Courtney Mayfield MD 960 [facility], [facility] 2[address] [place], [place] [id number] Social History Tobacco Use Types Packs/Day Years [...] Description 11/07/2024 11:30 AM EDT Procedure Visit [facility] [address] [facility] 170 [place] [address] Jodie Matthews MD [address] [place] [address] 12/19/2024 2:45 PM EDT Office Visit [facility] [address] [facility] 2100 [place] [address] Courtney Mayfield MD [address] [facility], [address] [address] 02/17/2025 11:30 AM EDT Telemedicine [facility] [address] [facility] 130 [place] [address] Leonila Kern APRN-MARKET PRESIDENT [address] [facility], [facility] 130 [place] [address] documented as of this encounter Visit Diagnoses Not on filedocumented in this encounter Additional Health Concerns Assessment Noted Time PHQ-9 Depression Total Score: 11 023 10:35 AM EDT A fall risk assessment has been complete d for the patient 02/16/2023 10:23 AM EDT documented as of this encounter Care Teams Tetryl Nitrator Operator Relationship Specialty Start Date End Date Raquel Rayo MD [address] [place] [address] PCP - General 09/19/10 Courtney Mayfield MD [address] [facility], [facility] [address] [place], [place] [address] Referring Physician Allergy and Immunology 02/12/24 documented as of this encounter
--- OUTSIDE RECORDS SUMMARY | 2024-10-02 00:29 | XMS_ITS | Encounter Summary ---
Author Organization [facility] Address [address] [place] [address] Phone Care Team Providers Care Remotely Piloted Vehicle Controller Name Role Phone Raquel Rayo MD Primary Care Provider [phone] Courtney Mayfield MD Unavailable [phone] Encounter Details Date Type Department Care Team (Late st Contact Info) Description 11/10/2023 Scanned Document [facility] [address] [facility] 2[address] [place] [address] Courtney Mayfield MD 960 [facility], [facility] [address] [place], [place] [id number] Social History Tobacco Use Types Packs/Day Years Used Date Smoking Tobacco: Never Smokeless Tobacco: Never Alcohol Use Standard Drinks/Week Comments Never 0 (1 standard drink = 0.6 oz pur e alcohol) PHQ-2 Answer Date Recorded Patient Health Questionnaire-2 Score 6 10/08/2023 Sex and Gender Information Value Date Recorded Sex Assigned at Not on file Legal Sex Male 11:51 PM EST Gender Identity Not on file Sexual Orientation Not on file documented as of this encounter Plan of Treatment Upcoming Encounters Date Type Department Care Team (Late st Contact Info) Description 11/07/2024 11:30 AM EDT Procedure Visit [facility] [address] [facility] 170 [place] [address] Jodie Matthews MD [address] [facility] 170 [place] [address] 12/19/2024 2:45 PM EDT Office Visit [facility] [address] [facility] 2100 [place] [address] Courtney Mayfield MD [address] [facility], [facility] [address] [place] [address] 02/17/2025 11:30 AM EDT Telemedicine [facility] [address] [place] [facility] 130 [place] [address] Leonila Kern APRN-STREET CONTRACTOR 1000 [facility] 130 [place] [address] documented as of this encounter Visit Diagnoses Not on filedocumented in this encounter Additional Health Concerns Assessment Noted Time PHQ-9 Depression Total Score: 14 024 10:35 AM EDT A fall risk assessment has been complete d for the patient 10/08/2023 10:34 AM EDT documented as of this encounter Care Teams Remotely Piloted Vehicle Controller Relationship Specialty Start Date End Date Raquel Rayo MD [address] [place] [address] PCP - General 09/19/10 Courtney Mayfield MD [address] [facility], [facility] 2[address] [place] [address] Referring Physician Allergy and Immunology 02/12/24 documented as of this encounter
--- OUTSIDE RECORDS SUMMARY | 2024-10-02 00:29 | XMS_ITS | Encounter Summary ---
Author Organization [facility] Address [address] [place] [address] Phone Care Team Providers Care Survey Crew Chief Name Role Phone Raquel Rayo MD Primary Care Provider [phone] Courtney Mayfield MD Unavailable [phone] Encounter Details Date Type Department Care Team (Late st Contact Info) Description 08/21/2023 Scanned Document [facility] [address] [facility] [address] [place] [address] Courtney Mayfield MD [address] [facility], [facility] [address] [place], [place] [address] Social History Tobacco Use Types Packs/Day Years [...] Procedure Visit [facility] [address] [facility] 170 [place] [address] Jodie Matthews MD [address] [facility] 170 [place] [address] 12/19/2024 2:45 PM EDT Office Visit [facility] [address] [facility] [address] [place] [address] Courtney Mayfield MD [address] [facility], [facility] [address] [place] [address] 02/17/2025 11:30 AM EDT Telemedicine [facility] 1000 [place] [facility] 130 [place] [address] Leonila Kern APRN-KITCHEN FOOD SERVER [address] [facility], [facility] 130 [place] [address] documented as of this encounter Visit Diagnoses Not on filedocumented in this encounter Additional Health Concerns Assessment Noted Time PHQ-9 Depression Total Score: 10 024 3:38 PM EST A fall risk assessment has been complete d for the patient 06/22/2023 3:38 PM EST documented as of this encounter Care Teams Survey Crew Chief Relationship Specialty Start Date End Date Raquel Rayo MD [address] [place] [address] PCP - General 09/19/10 Courtney Mayfield MD [address] [facility], [facility] [address] [place] [address] Referring Physician Allergy and Immunology 02/12/24 documented as of this encounter
--- OUTSIDE RECORDS SUMMARY | 2024-10-02 00:29 | XMS_ITS | Encounter Summary ---
Author Organization [facility] Address [address] [place] [address] Phone Care Team Providers Care Associate Web Developer Name Role Phone Raquel Rayo MD Primary Care Provider [phone] Courtney Mayfield MD Unavailable [phone] Encounter Details Date Type Department Care Team (Late st Contact Info) Description 06/25/2021 Orders Only [facility] [address] [place] [address] Conversion, Onbase Social History Tobacco Use Types [...] Description 11/07/2024 11:30 AM EDT Procedure Visit [facility] [address] [place] [address] Jodie Matthews MD [address] [place] [address] 12/19/2024 2:45 PM EDT [facility] [address] [place] [address] Courtney Mayfield MD [address] [facility] [place] [address] [place] [address] 02/17/2025 11:30 AM EDT Telemedicine [facility] 1000 [place] [facility] 130 [place] [address] Leonila Kern APRN-WATER FILTER CLEANER [address] [place] [facility], [facility] 130 [place] [address] Scheduled Orders Name Type Priority Associated Diagnoses Orde r Schedule OUTSIDE LAB SCAN Lab Ordered: 06/25/2021 documented as of this encounter Visit Diagnoses Not on filedocumented in this encounter Care Teams Associate Web Developer Relationship Specialty Start Date End Date Raquel Rayo MD [address] [place] [address] [place] [address] PCP - General 09/19/10 Courtney Mayfield MD [address] [facility] [place] [address] [place] [address] Referring Physician Allergy and Immunology 02/12/24 documented as of this encounter
--- OUTSIDE RECORDS SUMMARY | 2024-10-02 00:29 | XMS_ITS | Encounter Summary ---
Author Organization [facility] Address [address] [place] [address] Phone Care Team Providers Care Shelver Name Role Phone Raquel Rayo MD Primary Care Provider [phone] Courtney Mayfield MD Unavailable [phone] Encounter Details Date Type Department Care Team (Late st Contact Info) Description 05/30/2021 Orders Only [facility] [address] [place] [address] Conversion, Onbase Social History Tobacco Use Types [...] Description 11/07/2024 11:30 AM EDT Procedure Visit [facility] [address] [place] [address] Jodie Matthews MD [address] [place] [address] 12/19/2024 2:45 PM EDT Office Visit [facility] [address] [place] [address] Courtney Mayfield MD [address] [facility], [place] [address] [place] [address] 02/17/2025 11:30 AM EDT Telemedicine [facility] [address] [place] [facility] 130 [place] [address] Leonila Kern APRN-BARREL HANDLER [address] [place] [facility], [facility] 130 [place] [address] Scheduled Orders Name Type Priority Associated Diagnoses Orde r Schedule OUTSIDE LAB SCAN Lab Ordered: 05/30/2021 documented as of this encounter Visit Diagnoses Not on filedocumented in this encounter Care Teams Shelver Relationship Specialty Start Date End Date Raquel Rayo MD [address] [place] [address] [place] [address] PCP - General 09/19/10 Courtney Mayfield MD [address] [facility], [place] [address] [place] [address] Referring Physician Allergy and Immunology 02/12/24 documented as of this encounter
--- OUTSIDE RECORDS SUMMARY | 2024-10-02 00:29 | XMS_ITS | Encounter Summary ---
Author Organization [facility] Address [address] [place] [address] Phone Care Team Providers Care Charge Master Specialist Name Role Phone Raquel Rayo MD Primary Care Provider [phone] Courtney Mayfield MD Unavailable [phone] Encounter Details Date Type Department Care Team (Late st Contact Info) Description 12/26/2022 Scanned Document [facility] [address] [place] [address] Conversion, Onbase Social History Tobacco Use Types Packs/Day Years Used Date Smoking Tobacco: Never Assessed PHQ-2 Answer Date Recorded Patient Health Questionnaire-2 [...] Description 11/07/2024 11:30 AM EDT Procedure Visit [facility] [address] [place] [address] Jodie Matthews MD [address] [place] [address] 12/19/2024 2:45 PM EDT Office Visit [facility] [address] [place] [address] Courtney Mayfiedl MD [address] [facility], [place] [address] [place] [address] 02/17/2025 11:30 AM EDT Telemedicine [facility] [address] [place] [facility] 130 [place] [address] Leonila Kern APRN-TINT LAYER [address] [place] [facility], [facility] 130 [place] [address] documented as of this encounter Visit Diagnoses Not on filedocumented in this encounter Additional Health Concerns Assessment Noted Time PHQ-9 Depression Total Score: 11 023 10:35 AM EDT documented as of this encounter Care Teams Charge Master Specialist Relationship Specialty Start Date End Date Raquel Rayo MD [address] [place] [address] [place] [address] PCP - General 09/19/10 Courtney Mayfield MD [address] [facility], [place] [address] [place] [address] Referring Physician Allergy and Immunology 02/12/24 documented as of this encounter
--- OUTSIDE RECORDS SUMMARY | 2024-10-02 00:29 | XMS_ITS | Encounter Summary ---
Author Organization [facility] Address [address] [place] [address] Phone Care Team Providers Care Flexographic Printing Press Operator Name Role Phone Raquel Rayo MD Primary Care Provider [phone] Courtney Mayfield MD Unavailable Encounter Details Date Type Department Care Team (Late st Contact Info) Description 04/20/2023 Scanned Document [facility] [address] [facility] [address] [place] [address] Courtney Mayfield MD 960 [facility], [facility] [address] [place], [place] [id number] Social History Tobacco Use Types Packs/Day Years [...] Description 11/07/2024 11:30 AM EDT Procedure Visit [facility] [address] [facility] 170 [place] [phone] Jodie Matthews MD [address] [place] [address] 12/19/2024 2:45 PM EDT Office Visit [facility] [address] Huerta [facility] [address] [place] [address] Courtney Mayfield MD [address]erta [facility], [address] [id number] 02/17/2025 11:30 AM EDT Telemedicine [facility] [address] [facility] 130 [place] [address] Leonila Kern APRN-PRIMER INSERTING MACHINE OPERATOR [address] [facility], [facility] 130 [place] [address] documented as of this encounter Visit Diagnoses Not on filedocumented in this encounter Additional Health Concerns Assessment Noted Time PHQ-9 Depression Total Score: 11 023 10:35 AM EDT A fall risk assessment has been complete d for the patient 02/16/2023 10:23 AM EDT documented as of this encounter Care Teams Flexographic Printing Press Operator Relationship Specialty Start Date End Date Raquel Rayo MD [address] [place] [address] PCP - General 09/19/10 Courtney Mayfield MD [address] [facility], [facility] [address] [place], [place] [phone] Referring Physician Allergy and Immunology 02/12/24 documented as of this encounter
--- OUTSIDE RECORDS SUMMARY | 2024-10-02 00:29 | XMS_ITS | Encounter Summary ---
Author Organization [facility] Address [address] [place] [address] Phone Care Team Providers Care Biopsychologist Name Role Phone Raquel Rayo MD Primary Care Provider [phone] Courtney Mayfield MD Unavailable Encounter Details Date Type Department Care Team (Late st Contact Info) Description 04/16/2023 Scanned Document [facility] [address] [facility] 160 [place] [address] Courtney Mayfield MD 960 [facility] [place] [address] [place], [place] [phone] Social History Tobacco Use Types Packs/Day Years [...] Description 11/07/2024 11:30 AM EDT Procedure Visit [facility] [address] [facility] 170 [place] [address] Jodie Matthews MD [address] [place] [address] 12/19/2024 2:45 PM EDT Office Visit [facility] [address] [facility] 2[address] [place] [address] Courtney Mayfield MD [address] [facility], [facility] [address] [place] [address] 02/17/2025 11:30 AM EDT Telemedicine [facility] [address] [facility] 130 [place] [address] Leonila Kern APRN-MANAGER SHIP [address] [facility], [facility] 130 [place] [address] documented as of this encounter Visit Diagnoses Not on filedocumented in this encounter Additional Health Concerns Assessment Noted Time PHQ-9 Depression Total Score: 11 023 10:35 AM EDT A fall risk assessment has been complete d for the patient 02/16/2023 10:23 AM EDT documented as of this encounter Care Teams Biopsychologist Relationship Specialty Start Date End Date Raquel Rayo MD [address] [place] [address] [place] [address] PCP - General 09/19/10 Courtney Mayfield MD [address] [facility], [facility] [address] [place] [address] Referring Physician Allergy and Immunology 02/12/24 documented as of this encounter
--- OUTSIDE RECORDS SUMMARY | 2024-10-02 00:29 | XMS_ITS | Encounter Summary ---
Author Organization [facility] Address [address] [place] [address] Phone Care Team Providers Care Mobile Plant Operators Name Role Phone Raquel Rayo MD Primary Care Provider [phone] Courtney Mayfield MD Unavailable [phone] Encounter Details Date Type Department Care Team (Late st Contact Info) Description 04/20/2023 Scanned Document [facility] [address] [facility] [address] [place] [address] Courtney Mayfield MD [address] [facility], [facility] 2[address] [place], [place] [phone] Social History Tobacco Use Types Packs/Day Years [...] Description 11/07/2024 11:30 AM EDT Procedure Visit [facility] [address] [facility] 170 [place] [address] Jodie Matthews MD [address] [place] [address] 12/19/2024 2:45 PM EDT Office Visit [facility] [address] Huerta [facility] [address] [place] [address] Courtney Mayfield MD [address] [facility], [address] [phone] 02/17/2025 11:30 AM EDT Telemedicine [facility] [address] [facility] 130 [place] [address] Leonila Kern APRN-CUSTOM MARINE CANVAS FABRICATOR [address] [facility], [facility] 130 [place] [address] documented as of this encounter Visit Diagnoses Not on filedocumented in this encounter Additional Health Concerns Assessment Noted Time PHQ-9 Depression Total Score: 11 023 10:35 AM EDT A fall risk assessment has been complete d for the patient 02/16/2023 10:23 AM EDT documented as of this encounter Care Teams Mobile Plant Operators Relationship Specialty Start Date End Date Raquel Rayo MD [address] [place] [address] PCP - General 09/19/10 Courtney Mayfield MD [address] [facility], [facility] [address] [place], [place] [address] Referring Physician Allergy and Immunology 02/12/24 documented as of this encounter
--- OUTSIDE RECORDS SUMMARY | 2024-10-02 00:29 | XMS_ITS | Encounter Summary ---
Author Organization [facility] Address [address] [place] [address] Phone Care Team Providers Care Load Out Person Name Role Phone Raquel Rayo MD Primary Care Provider [phone] Courtney Mayfield MD Unavailable [phone] Encounter Details Date Type Department Care Team (Late st Contact Info) Description 10/27/2023 Scanned Document [facility] [address] [facility] [address] [place] [address] Courtney Mayfield MD 960 [facility], [facility] [address] [place] [phone] Social History Tobacco Use Types Packs/Day Years [...] suspected to have Coronavirus/COVID-19? No / Unsure 10/08/2023 10:18 AM EDT documented as of this encounter Plan of Treatment Upcoming Encounters Date Type Department Care Team (Late st Contact Info) Description 11/07/2024 11:30 AM EDT Procedure Visit [facility] [address] [facility] 170 [place] [address] Jodie Matthews MD [address] [place] [address] 12/19/2024 2:45 PM EDT Office Visit [facility] [address] [facility] 2100 [place] [address] Courtney Mayfield MD [address] [facility], [facility] [address] [place], [place] [address] 02/17/2025 11:30 AM EDT Telemedicine [facility] [address] [facility] 130 [place] [address] Leonila Kern APRN-PRATIMA [address] [facility], [facility] 130 [place] [address] documented as of this encounter Visit Diagnoses Not on filedocumented in this encounter Additional Health Concerns Assessment Noted Time PHQ-9 Depression Total Score: 14 024 10:35 AM EDT A fall risk assessment has been complete d for the patient 10/08/2023 10:34 AM EDT documented as of this encounter Care Teams Load Out Person Relationship Specialty Start Date End Date Raquel Rayo MD [address] [place] [address] [place] [address] PCP - General 09/19/10 Courtney Mayfield MD [address]erta [facility], [facility] [address] [place] [address] Referring Physician Allergy and Immunology 02/12/24 documented as of this encounter
--- OUTSIDE RECORDS SUMMARY | 2024-10-02 00:29 | XMS_ITS | Encounter Summary ---
Author Organization [facility] Address [address] [place] [address] Phone Care Team Providers Care Airborne Operations Manager Name Role Phone Raquel Rayo MD Primary Care Provider [phone] Courtney Mayfield MD Unavailable [phone] Encounter Details Date Type Department Care Team (Late st Contact Info) Description 12/29/2022 Scanned Document [facility] [address] [place] [place] [address] Conversion, Onbase Social History Tobacco Use Types [...] Description 11/07/2024 11:30 AM EDT Procedure Visit [facility] [address] [place] [address] Jodie Matthews MD [address] [place] [address] 12/19/2024 2:45 PM EDT Office Visit [facility] [address] [place] [address] Courtney Mayfield MD [address]erta [facility] [place] [address] [place] [address] 02/17/2025 11:30 AM EDT Telemedicine [facility] [address] [facility] 130 [place] [address] Leonila Kern APRN-SLURRY TANK TENDER [address] [facility], [facility] 130 [place] [address] documented as of this encounter Visit Diagnoses Not on filedocumented in this encounter Additional Health Concerns Assessment Noted Time PHQ-9 Depression Total Score: 11 023 10:35 AM EDT documented as of this encounter Care Teams Airborne Operations Manager Relationship Specialty Start Date End Date Raquel Rayo MD [address] [place] [address] [place] [address] PCP - General 09/19/10 Courtney Mayfield MD [address] Huerta [facility] [place] [address] [place] [address] Referring Physician Allergy and Immunology 02/12/24 documented as of this encounter
--- OUTSIDE RECORDS SUMMARY | 2024-10-02 00:29 | XMS_ITS | Encounter Summary ---
Author Organization [facility] Address [address] [place] [address] Phone Care Team Providers Care Machine Welt Butter Name Role Phone Raquel Rayo MD Primary Care Provider [phone] Courtney Mayfield MD Unavailable [phone] Encounter Details Date Type Department Care Team (Late st Contact Info) Description 08/11/2022 Orders Only [facility] [address] [place] [address] Conversion, Onbase Social History Tobacco Use Types [...] [facility] [address] [place] [address] Jodie Matthews MD [address] [place] [address] 12/19/2024 2:45 PM EDT Office Visit [facility] [address] [place] [address] Courtney Mayfield MD [address] [facility], [place] [address] [place] [address] 02/17/2025 11:30 AM EDT Telemedicine [facility] [address] [place] [facility] 130 [place] [address] Leonila Kern APRN-FINE GRADE OPERATOR [address] [place] [facility], [facility] 130 [place] [address] Scheduled Orders Name Type Priority Associated Diagnoses Orde r Schedule OUTSIDE LAB SCAN Lab Ordered: 08/11/2022 documented as of this encounter Visit Diagnoses Not on filedocumented in this encounter Care Teams Machine Welt Butter Relationship Specialty Start Date End Date Raquel Rayo MD [address] [place] [address] [place] [address] PCP - General 09/19/10 Courtney Mayfield MD [address] [facility], [place] [address] [place] [address] Referring Physician Allergy and Immunology 02/12/24 documented as of this encounter
--- OUTSIDE RECORDS SUMMARY | 2024-10-02 00:29 | XMS_ITS | Encounter Summary ---
Author Organization [facility] Address [address] [place] [address] Phone Care Team Providers Care Gum Rolling Machine Operator Name Role Phone Raquel Rayo MD Primary Care Provider [phone] Courtney Mayfield MD Unavailable [phone] Encounter Details Date Type Department Care Team (Late st Contact Info) Description 02/05/2023 Scanned Document [facility] [address] [place] [address] Scanning, Generic Provider Social History Tobacco Use Types Packs/Day Years [...] Description 11/07/2024 11:30 AM EDT Procedure Visit [facility] [address] [place] [address] Jodie Matthews MD [address] [place] [address] 12/19/2024 2:45 PM EDT Office Visit [facility] [address] [place] [address] Courtney Mayfield MD [address] [facility], [place] [address] [place] [address] 02/17/2025 11:30 AM EDT Telemedicine [facility] [address] [facility] 130 [place] [address] Leonila Kern APRN-MOBILE MANAGER [address] [place] [facility], [facility] 130 [place] [address] documented as of this encounter Visit Diagnoses Not on filedocumented in this encounter Additional Health Concerns Assessment Noted Time PHQ-9 Depression Total Score: 11 023 10:35 AM EDT documented as of this encounter Care Teams Gum Rolling Machine Operator Relationship Specialty Start Date End Date Raquel Rayo MD [address] [place] [address] [place] [address] PCP - General 09/19/10 Courtney Mayfield MD [address] [facility], [facility] 2[address] [place] [address] Referring Physician Allergy and Immunology 02/12/24 documented as of this encounter
--- OUTSIDE RECORDS SUMMARY | 2024-10-02 00:29 | XMS_ITS | Encounter Summary ---
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) Social History Tobacco Use Types Packs/Day Years [...] Description 11/07/2024 11:30 AM EDT Procedure Visit [facility] [address] [place] [address] Jodie Matthews MD 4001 [facility] 170 [place] [address] 12/19/2024 2:45 PM EDT Office Visit [facility] [address] 2100 [place] [address] Courtney Mayfield MD [address] [facility], [facility] [address] [place] [address] 02/17/2025 11:30 AM EDT Telemedicine [facility] 1000 [facility] 130 [place] [address] Leonila Kern APRN-ACCOUNTS PAYABLE LEAD 1000 [facility], [facility] 130 [place] [address] Scheduled Orders Name Type Priority Associated Diagnoses Orde r Schedule Potassium Lab Routine Anti-pneumococcal polysaccharide antibody deficiency (Multi) Expected: 11/13/2023 (Approximate), Expires: 11/12/2024 documented as of this encounter Visit Diagnoses Diagnosis 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 documented in this encounter Additional Health Concerns Assessment Noted Time PHQ-9 Depression Total Score: 14 024 10:35 AM EDT A fall risk assessment has been complete d for the patient 10/08/2023 10:34 AM EDT documented as of this encounter Care Teams Forming Process Line Worker Relationship Specialty Start Date End Date Raquel Rayo MD [address] [place] [address] [place] [address] PCP - General 09/19/10 Courtney Mayfield MD [address] [facility], [facility] [address] [place], [place] [phone] Referring Physician Allergy and Immunology 02/12/24 documented as of this encounter
--- OUTSIDE RECORDS SUMMARY | 2024-10-02 00:29 | XMS_ITS | Encounter Summary ---
Author Organization [facility] Address [address] [place] [address] Phone Care Team Providers Care Sorter Upholstery Parts Name Role Phone Raquel Rayo MD Primary Care Provider [phone] Courtney Mayfield MD Unavailable [phone] Encounter Details Date Type Department Care Team (Late st Contact Info) Description 04/20/2023 Scanned Document [facility] [address] [facility] 2[address] [place] [address] Courtney Mayfield MD 960 [facility], [facility] 2[address] [place], [place] [address] Social History Tobacco Use Types Packs/Day Years [...] Description 11/07/2024 11:30 AM EDT Procedure Visit [facility] [address] [facility] 170 [place] [address] Jodie Matthews MD [address] [place] [address] 12/19/2024 2:45 PM EDT Office Visit [facility] [address] [facility] 2[address] [place] [address] Courtney Mayfield MD [address] [facility], [address] [phone] 02/17/2025 11:30 AM EDT Telemedicine [facility] [address] [facility] 130 [place] [address] Leonila Kern APRN-TURF FARMER [address] [facility], [facility] 130 [place] [address] documented as of this encounter Visit Diagnoses Not on filedocumented in this encounter Additional Health Concerns Assessment Noted Time PHQ-9 Depression Total Score: 11 023 10:35 AM EDT A fall risk assessment has been complete d for the patient 02/16/2023 10:23 AM EDT documented as of this encounter Care Teams Sorter Upholstery Parts Relationship Specialty Start Date End Date Raquel Rayo MD [address] [place] [address] PCP - General 09/19/10 Courtney Mayfield MD [address] [facility], [facility] [address] [place], [place] [address] Referring Physician Allergy and Immunology 02/12/24 documented as of this encounter
--- OUTSIDE RECORDS SUMMARY | 2024-10-02 00:29 | XMS_ITS | Encounter Summary ---
Author Organization [facility] Address [address] [place] [address] Phone Care Team Providers Care Yard Warehouse Worker Name Role Phone Raquel Rayo MD Primary Care Provider [phone] Courtney Mayfield MD Unavailable [phone] Encounter Details Date Type Department Care Team (Late st Contact Info) Description 01/06/2023 Orders Only [facility] [address] [place] [address] Conversion, Onbase Social History Tobacco Use Types [...] [facility] [address] [place] [address] Jodie Matthews MD [address] [place] [address] 12/19/2024 2:45 PM EDT Office Visit [facility] [address] [place] [address] Courtney Mayfield MD [address] [facility], [facility] 2100 [place] [address] 02/17/2025 11:30 AM EDT Telemedicine [facility] [address] [facility] 130 [place] [address] Leonila Kern APRN-STEWARD/STEWARDESS SECOND CLASS [address] [facility], [facility] 130 [place] [address] Scheduled Orders Name Type Priority Associated Diagnoses Orde r Schedule OUTSIDE LAB SCAN Lab Ordered: 01/06/2023 documented as of this encounter Visit Diagnoses Not on filedocumented in this encounter Additional Health Concerns Assessment Noted Time PHQ-9 Depression Total Score: 11 023 10:35 AM EDT documented as of this encounter Care Teams Yard Warehouse Worker Relationship Specialty Start Date End Date Raquel Rayo MD [address] [place] [address] PCP - General 09/19/10 Courtney Mayfield MD [address] [facility], [facility] [address] [place] [address] Referring Physician Allergy and Immunology 02/12/24 documented as of this encounter
--- OUTSIDE RECORDS SUMMARY | 2024-10-02 00:29 | XMS_ITS | Encounter Summary ---
Author Organization [facility] Address [address] [place] [address] Phone Care Team Providers Care Director Ambulatory Name Role Phone Raquel Rayo MD Primary Care Provider [phone] Courtney Mayfield MD Unavailable [phone] Encounter Details Date Type Department Care Team (Late st Contact Info) Description 11/13/2023 Scanned Document [facility] [address] [facility] 2100 [place] [address] Courtney Mayfield MD 960 [facility], [facility] 2100 [place], [place] [phone] Social History Tobacco Use Types Packs/Day Years [...] Procedure Visit [facility] [address] [facility] 170 [place] [address] Jodie Matthews MD [address] [facility] 170 [place] [address] 12/19/2024 2:45 PM EDT Office Visit [facility] [address] [facility] 2100 [place] [address] Courtney Mayfield MD [address] [facility], [facility] 2100 [place] [address] 02/17/2025 11:30 AM EDT Telemedicine [facility] 1000 [place] [facility] 130 [place] [address] Leonila Kern APRN-TRUMPET TEACHER 1000 [facility], [facility] 130 [place] [address] documented as of this encounter Visit Diagnoses Not on filedocumented in this encounter Additional Health Concerns Assessment Noted Time PHQ-9 Depression Total Score: 14 024 10:35 AM EDT A fall risk assessment has been complete d for the patient 10/08/2023 10:34 AM EDT documented as of this encounter Care Teams Director Ambulatory Relationship Specialty Start Date End Date Raquel Rayo MD [address] [place] [address] PCP - General 09/19/10 Courtney Mayfield MD [address] [facility], [facility] 2100 [place] [address] Referring Physician Allergy and Immunology 02/12/24 documented as of this encounter
--- OUTSIDE RECORDS SUMMARY | 2024-10-02 00:29 | XMS_ITS | Encounter Summary ---
Author Organization [facility] Address [address] [place] [address] Phone Care Team Providers Care Raw Shellfish Preparer Name Role Phone Raquel Rayo MD Primary Care Provider [phone] Courtney Mayfield MD Unavailable [phone] Reason for Referral * CV Imaging (Routine) - Closed Specialty Diagnoses / Procedures Referred By Contac t Referred To Contact Cardiology Diagnoses Interstitial pulmonary disease, unspecified Shortness of breath Procedures Transthoracic Echo (TTE) Complete HI ECHO TRANSTHORC R-T 2D W/WO M-MODE REC F-UP/LMTD HI DOP ECHOCARD COLOR FLOW VELOCITY MAPPING HI DOP ECHOCARD PULSE WAVE W/SPECTRAL F-UP/LMTD STD Rich Betts MD MPH [address] [place] [address] Phone: tel: fax: Referral ID Status Reason Start Date Expiration Date V isits Requested Visits Authorized [id number] Closed Perform Procedure 02/05/2023 08/04/2023 1 1 Encounter Details Date Type Department Care Team (Latest Contact Info) Description 02/05/2023 Transcribe Orders Isabela Morgan [address] [place] [address] Rich Betts MD MPH [address] [place] [address] Interstitial pulmonary disease, unspecified (Multi) (Primary Dx); Shortness of breath Social History Tobacco Use Types Packs/Day Years [...] Description 11/07/2024 11:30 AM EDT Procedure Visit [facility] [address] [facility] [address] [place] [address] Jodie Matthews MD [address] [facility] [address] [place] [address] 12/19/2024 2:45 PM EDT Office Visit [facility] [address] [facility] [address] [place] [address] Courtney Mayfield MD [address] [facility], [facility] [address] [place] [address] 02/17/2025 11:30 AM EDT Telemedicine [facility] [address] [facility] [address] [place] [address] Leonila Kern APRN-JACK SPOOLER TENDER [address] [facility], [facility] [address] [place] [address] documented as of this encounter Results * TRANSTHORACIC ECHO (TTE) COMPLETE (02/11/2023 8:17 AM EDT) LV A4C EF 57.7 SYNGO 02/11/2023 7:59 AM EDT Narrative SYNGO - 02/11/2023 5:47 PM EDT [facility] [address] [facility], [address], [place] [address] TRANSTHORACIC ECHOCARDIOGRAM REPORT Patient Name: VERAN NEELY Reading Physician: [id number] Aureliano Black MD Study Date: 02/11/2023 Ordering Provider: [id number] RICH BETTS MRN/PID: [id number] Fellow: Nurse: Date of /Age: 9 1960 / 63 years Pe Manager: Elizabeth Costello RDCS, RVT Gender: M Additional Staff: Height: 175.26 cm Admit Date: Weight: 85.73 kg Admission Status: BSA: 2.02 m2 Department Location: [facility] Blood Pressure: 118 /78 mmHg Study Type: TRANSTHORACIC ECHO (TTE) COMPLETE Diagnosis/ICD: Interstitial lung disease-J84.9; Shortness of breath-R06.02 Indication: COPD-on O2 at 3.5l at night, Long COVID-19, ANN, History of DVT Study Detail: The following Echo studies were performed: 2D, M-Mode, Doppler and color flow. PHYSICIAN INTERPRETATION: Left Ventricle: Left ventricular systolic function is normal, with an estimated ejection fraction of 55-60%. There are no regional wall motion abnormalities. The left ventricular cavity size is normal. Spectral Doppler shows an impaired relaxation pattern of left ventricular diastolic filling. Mild LVH. Left Atrium: The left atrium is normal in size. Right Ventricle: The right ventricle is normal in size. There is normal right ventricular global systolic function. Right Atrium: The right atrium is normal in size. Aortic Valve: The aortic valve appears structurally normal. There is mild aortic valve regurgitation. The peak instantaneous gradient of the aortic valve is 6.7 mmHg. The mean gradient of the aortic valve is 3.0 mmHg. Mitral Valve: The mitral valve is normal in structure. There is mild mitral valve regurgitation. Tricuspid Valve: The tricuspid valve is structurally normal. There is mild tricuspid regurgitation. The Doppler estimated RVSP is within normal limits at 28.8 mmHg. Pulmonic Valve: The pulmonic valve is structurally normal. There is no indication of pulmonic valve regurgitation. Pericardium: There is no pericardial effusion noted. Aorta: The aortic root is normal. CONCLUSIONS: 1. Left ventricular systolic function is normal with a 55-60% estimated ejection fraction. 2. Mild LVH. 3. Spectral Doppler shows an impaired relaxation pattern of left ventricular diastolic filling. 4. Mild mitral valve regurgitation. 5. Mild tricuspid regurgitation is visualized. 6. RVSP within normal limits. 7. Mild aortic valve regurgitation. 8. When compared to previous study the severity of the aortic regurgitation is slightly increased and the mitral regurgitation is new. QUANTITATIVE DATA SUMMARY: 2D MEASUREMENTS: Normal Ranges: Ao Root d: 3.20 cm (2.0-3.7cm) LAs: 4.00 cm (2.7-4.0cm) RVIDd: 3.00 cm (0.9-3.6cm) IVSd: 1.50 cm (0.6-1.1cm) LVPWd: 1.20 cm (0.6-1.1cm) LVIDd: 4.40 cm (3.9-5.9cm) LVIDs: 3.70 cm LV Mass Index: 112.8 g/m2 LV % FS 15.9 % LV SYSTOLIC FUNCTION BY 2D PLANIMETRY (MOD): Normal Ranges: EF-A4C View: 57.7 % (>=55%) LV DIASTOLIC FUNCTION: Normal Ranges: MV Peak E: 0.50 m/s (0.7-1.2 m/s) MV Peak A: 0.87 m/s (0.42-0.7 m/s) E/A Ratio: 0.57 (1.0-2.2) MV lateral e' 0.06 m/s MV medial e' 0.04 m/s E/e' Ratio: 7.80 (<8.0) MITRAL VALVE: Normal Ranges: MV Vmax: 0.84 m/s (<=1.3m/s) MV peak P.8 mmHg (<5mmHg) MV mean P.0 mmHg (<48mmHg) MITRAL INSUFFICIENCY: Normal Ranges: MR Vmax: 159.00 cm/s AORTIC VALVE: Normal Ranges: AoV Vmax: 1.29 m/s (<=1.7m/s) AoV Peak P.7 mmHg (<20mmHg) AoV Mean P.0 mmHg (1.7-11.5mmHg) LVOT Max Evens: 0.76 m/s (<=1.1m/s) AoV VTI: 25.20 cm (18-25cm) LVOT VTI: 14.90 cm LVOT Diameter: 2.20 cm (1.8-2.4cm) AoV Area, VTI: 2.25 cm2 (2.5-5.5cm2) AoV Area,Vmax: 2.23 cm2 (2.5-4.5cm2) AoV Dimensionless Index: 0.59 AORTIC INSUFFICIENCY: AI Vmax: 3.20 m/s AI Half-time: 576 msec AI Decel Rate: 163.00 cm/s2 TRICUSPID VALVE/RVSP: Normal Ranges: Peak TR Velocity: 2.54 m/s RV Syst Pressure: 28.8 mmHg (< 30mmHg) PULMONIC VALVE: Normal Ranges: PV Max Evens: 0.5 m/s (0.6-0.9m/s) PV Max P.1 mmHg [id number] Aureliano Black MD Electronically signed on 02/11/2023 at 5:47:17 PM Final Procedure Note Aureliano Black MD - 02/11/[address], [address] [place] [address] TRANSTHORACIC ECHOCARDIOGRAM REPORT Patient Name: VERNA NEELY Poncho Physician: [id number] Rutherford Study Date: 02/11/2023 Ordering Provider: [id number] KALANI BETTS MRN/PID: [id number] Fellow: Nurse: Date of /Age: 9 1960 / 63 years Pe Manager: Elizabeth Willingham RVT Gender: M Additional Staff: Height: 175.26 cm Admit Date: Weight: 85.73 kg Admission Status: BSA: 2.02 m2 Department Location: [facility] Blood Pressure: 118 /78 mmHg Study Type: TRANSTHORACIC ECHO (TTE) COMPLETE Diagnosis/ICD: Interstitial lung disease-J84.9; Shortness ofbreath-R06.02 Indication: COPD-on O2 at 3.5l at night, Long COVID-19, ANN, History ofDVT Study Detail: The following Echo studies were performed: 2D, M-Mode,Doppler and color flow. PHYSICIAN INTERPRETATION: Left Ventricle: Left ventricular systolic function is normal, with anestimated ejection fraction of 55-60%. There are no regional wall motionabnormalities. The left ventricular cavity size is normal. SpectralDoppler shows an impaired relaxation pattern of left ventricular diastolicfilling. Mild LVH. Left Atrium: The left atrium is normal in size. Right Ventricle: The right ventricle is normal in size. There is normalright ventricular global systolic function. Right Atrium: The right atrium is normal in size. Aortic Valve: The aortic valve appears structurally normal. There is mildaortic valve regurgitation. The peak instantaneous gradient of the aorticvalve is 6.7 mmHg. The mean gradient of the aortic valve is 3.0 mmHg. Mitral Valve: The mitral valve is normal in structure. There is mildmitral valve regurgitation. Tricuspid Valve: The tricuspid valve is structurally normal. There is mildtricuspid regurgitation. The Doppler estimated RVSP is within normallimits at 28.8 mmHg. Pulmonic Valve: The pulmonic valve is structurally normal. There is noindication of pulmonic valve regurgitation. Pericardium: There is no pericardial effusion noted. Aorta: The aortic root is normal. CONCLUSIONS: 1. Left ventricular systolic function is normal with a 55-60% estimatedejection fraction. 2. Mild LVH. 3. Spectral Doppler shows an impaired relaxation pattern of leftventricular diastolic filling. 4. Mild mitral valve regurgitation. 5. Mild tricuspid regurgitation is visualized. 6. RVSP within normal limits. 7. Mild aortic valve regurgitation. 8. When compared to previous study the severity of the aorticregurgitation is slightly increased and the mitral regurgitation is new. QUANTITATIVE DATA SUMMARY: 2D MEASUREMENTS: Normal Ranges: Ao Root d: 3.20 cm (2.0-3.7cm) LAs: 4.00 cm (2.7-4.0cm) RVIDd: 3.00 cm (0.9-3.6cm) IVSd: 1.50 cm (0.6-1.1cm) LVPWd: 1.20 cm (0.6-1.1cm) LVIDd: 4.40 cm (3.9-5.9cm) LVIDs: 3.70 cm LV Mass Index: 112.8 g/m2 LV % FS 15.9 % LV SYSTOLIC FUNCTION BY 2D PLANIMETRY (MOD): Normal Ranges: EF-A4C View: 57.7 % (>=55%) LV DIASTOLIC FUNCTION: Normal Ranges: MV Peak E: 0.50 m/s (0.7-1.2 m/s) MV Peak A: 0.87 m/s (0.42-0.7 m/s) E/A Ratio: 0.57 (1.0-2.2) MV lateral e' 0.06 m/s MV medial e' 0.04 m/s E/e' Ratio: 7.80 (<8.0) MITRAL VALVE: Normal Ranges: MV Vmax: 0.84 m/s (<=1.3m/s) MV peak P.8 mmHg (<5mmHg) MV mean P.0 mmHg (<48mmHg) MITRAL INSUFFICIENCY: Normal Ranges: MR Vmax: 159.00 cm/s AORTIC VALVE: Normal Ranges: AoV Vmax: 1.29 m/s (<=1.7m/s) AoV Peak P.7 mmHg (<20mmHg) AoV Mean P.0 mmHg (1.7-11.5mmHg) LVOT Max Evens: 0.76 m/s (<=1.1m/s) AoV VTI: 25.20 cm (18-25cm) LVOT VTI: 14.90 cm LVOT Diameter: 2.20 cm (1.8-2.4cm) AoV Area, VTI: 2.25 cm2 (2.5-5.5cm2) AoV Area,Vmax: 2.23 cm2 (2.5-4.5cm2) AoV Dimensionless Index: 0.59 AORTIC INSUFFICIENCY: AI Vmax: 3.20 m/s AI Half-time: 576 msec AI Decel Rate: 163.00 cm/s2 TRICUSPID VALVE/RVSP: Normal Ranges: Peak TR Velocity: 2.54 m/s RV Syst Pressure: 28.8 mmHg (< 30mmHg) PULMONIC VALVE: Normal Ranges: PV Max Evens: 0.5 m/s (0.6-0.9m/s) PV Max P.1 mmHg [id number] Aureliano Black MD Electronically signed on 02/11/2023 at 5:47:17 PM Final us Rich Betts MD MPH CV ECHO PROCEDURES Missy l Result TORRES documented in this encounter Visit Diagnoses Diagnosis Interstitial pulmonary disease, unspecified- Primary Shortness of breath Interstitial pulmonary disease, unspecified Shortness of breath documented in this encounter Additional Health Concerns Assessment Noted Time PHQ-9 Depression Total Score: 11 023 10:35 AM EDT documented as of this encounter Care Teams Raw Shellfish Preparer Relationship Specialty Start Date End Date Raquel Rayo MD [address] [place] [address] [place] [id number] PCP - General 09/19/10 Courtney Mayfield MD [address] [facility], [facility] [address] [place], [place] [phone] Referring Physician Allergy and Immunology 02/12/24 documented as of this encounter
--- OUTSIDE RECORDS SUMMARY | 2024-10-02 00:29 | XMS_ITS | Encounter Summary ---
Author Organization [facility] Address [address] [place] [address] Phone Care Team Providers Care Visual Merchandising Assistant Name Role Phone Raquel Rayo MD Primary Care Provider Courtney Mayfield MD Unavailable [phone] Encounter Details Date Type Department Care Team (Late st Contact Info) Description 08/19/[address] [facility] [address] [place] [address] Conversion, Onbase Social History Tobacco Use Types [...] Description 11/07/2024 11:30 AM EDT Procedure Visit [facility] [address] [place] [phone] Jodie Matthews MD [address] [place] [address] 12/19/2024 2:45 PM EDT Office Visit [facility] [address] [place] [address] Courtney Mayfield MD [address] [facility], [address] [place] [address] 02/17/2025 11:30 AM EDT Telemedicine [facility] [address] [facility] [address] [place] [address] Leonila Kern APRN-COSTUME SHOP COORDINATOR [address] [facility], [facility] [address] [place] [address] Scheduled Orders Name Type Priority Associated Diagnoses Orde r Schedule OUTSIDE LAB SCAN Lab Ordered: 08/19/2021 OUTSIDE LAB SCAN Lab Ordered: 08/19/2021 documented as of this encounter Visit Diagnoses Not on filedocumented in this encounter Care Teams Visual Merchandising Assistant Relationship Specialty Start Date End Date Raquel Rayo MD [address] [place] [address] PCP - General 09/19/10 Courtney Mayfield MD [address] [facility], [address] [place] [address] Referring Physician Allergy and Immunology 02/12/24 documented as of this encounter
--- OUTSIDE RECORDS SUMMARY | 2024-10-02 00:29 | XMS_ITS | Encounter Summary ---
Author Organization [facility] Address [address] [place] [address] Phone Care Team Providers Care Medicaid Plan Compliance Director Name Role Phone Raquel Rayo MD Primary Care Provider [phone] Courtney Mayfield MD Unavailable [phone] Encounter Details Date Type Department Care Team (Late st Contact Info) Description 03/15/2018 Orders Only [facility] [address] [place] [address] Conversion, Onbase Social History Tobacco Use Types [...] 11/07/2024 11:30 AM EDT Procedure Visit [facility] [address] [place] [phone] Jodie Matthews MD [address] [place] [address] 12/19/2024 2:45 PM EDT Office Visit [facility] [address] [facility] [address] [place] [address] Courtney Mayfield MD [address] [facility], [address] [place] [address] 02/17/2025 11:30 AM EDT Telemedicine [facility] [address] [facility] [address] [place] [address] Leonila Kern APRN-CHEMICAL RECLAMATION EQUIPMENT OPERATOR [address] [facility], [facility] [address] [place] [address] Scheduled Orders Name Type Priority Associated Diagnoses Orde r Schedule AUDIOLOGY REPORT - ONBASE SCAN Audiology Ordered: 018 documented as of this encounter Visit Diagnoses Not on filedocumented in this encounter Care Teams Medicaid Plan Compliance Director Relationship Specialty Start Date End Date Raquel Rayo MD [address] [place] [address] [place] [address] PCP - General 09/19/10 Courtney Mayfield MD [address] [facility], [address] [place] [address] Referring Physician Allergy and Immunology 02/12/24 documented as of this encounter
--- OUTSIDE RECORDS SUMMARY | 2024-10-02 00:29 | XMS_ITS | Encounter Summary ---
Author Organization [facility] Address [address] [place] [address] Phone Care Team Providers Care Corn Cutter Operator Name Role Phone Raquel Rayo MD Primary Care Provider [phone] Courtney Mayfield MD Unavailable [phone] Encounter Details Date Type Department Care Team (Late st Contact Info) Description 04/20/2023 Scanned Document [facility] [address] [facility] [address] [place] [address] Courtney Mayfield MD 960 [facility], [facility] [address] [place], [place] [phone] Social History Tobacco Use Types Packs/Day Years [...] Description 11/07/2024 11:30 AM EDT Procedure Visit [facility] [address] [facility] [address] [place] [phone] Jodie Matthews MD [address] [place] [address] 12/19/2024 2:45 PM EDT Office Visit [facility] [address] [facility] [address] [place] [address] Courtney Mayfield MD [address] [facility], [address] [phone] 02/17/2025 11:30 AM EDT Telemedicine [facility] [address] [facility] [address] [place] [phone] Leonila Kern APRN-ROAD DESIGN DRAFTSPERSON [address] [facility], [facility] [address] [place] [address] documented as of this encounter Visit Diagnoses Not on filedocumented in this encounter Additional Health Concerns Assessment Noted Time PHQ-9 Depression Total Score: 11 023 10:35 AM EDT A fall risk assessment has been complete d for the patient 02/16/2023 10:23 AM EDT documented as of this encounter Care Teams Corn Cutter Operator Relationship Specialty Start Date End Date Raquel Rayo MD [address] [place] [address] PCP - General 09/19/10 Courtney Mayfield MD [address] [facility], [facility] [address] [place], [place] [phone] Referring Physician Allergy and Immunology 02/12/24 documented as of this encounter
--- OUTSIDE RECORDS SUMMARY | 2024-10-02 00:29 | XMS_ITS | Encounter Summary ---
Author Organization [facility] Address [address] [place] [address] Phone Care Team Providers Care Beauty Sales Advisor Name Role Phone Raquel Rayo MD Primary Care Provider [phone] Courtney Mayfield MD Unavailable [phone] Encounter Details Date Type Department Care Team (Late st Contact Info) Description 08/07/2022 Orders Only [facility] [address] [place] [address] Conversion, Onbase Social History Tobacco Use Types [...] Description 11/07/2024 11:30 AM EDT Procedure Visit [facility] [address] [place] [phone] Jodie Matthews MD [address] [place] [address] 12/19/2024 2:45 PM EDT Office Visit [facility] [address] [place] [address] Courtney Mayfield MD [address] [facility], [address] [place] [address] 02/17/2025 11:30 AM EDT Telemedicine [facility] [address] [facility] [address] [place] [phone] Leonila Kern APRN-RAW SCALES OPERATOR [address] [facility], [facility] [address] [place] [address] Scheduled Orders Name Type Priority Associated Diagnoses Orde r Schedule OUTSIDE LAB SCAN Lab Ordered: 08/07/2022 documented as of this encounter Visit Diagnoses Not on filedocumented in this encounter Care Teams Beauty Sales Advisor Relationship Specialty Start Date End Date Raquel Rayo MD [address] [place] [address] [place] [address] PCP - General 09/19/10 Courtney Mayfield MD [address] [facility], [address] [place] [address] Referring Physician Allergy and Immunology 02/12/24 documented as of this encounter
--- OUTSIDE RECORDS SUMMARY | 2024-10-02 00:29 | XMS_ITS | Encounter Summary ---
Author Organization [facility] Address [address] [place] [address] Phone Care Team Providers Care Online Marketing Specialist Name Role Phone Raquel Rayo MD Primary Care Provider [phone] Courtney Mayfield MD Unavailable [phone] Encounter Details Date Type Department Care Team (Late st Contact Info) Description 01/08/2023 Scanned Document [facility] [address] [place] [address] Conversion, Onbase Social History Tobacco Use Types [...] Description 11/07/2024 11:30 AM EDT Procedure Visit [facility] [address] [place] [phone] Jodie Matthews MD [address] [place] [address] 12/19/2024 2:45 PM EDT Office Visit [facility] [address] [place] [address] Courtney Mayfield MD [address] [facility], [address] [place] [address] 02/17/2025 11:30 AM EDT Telemedicine [facility] [address] [facility] [address] [place] [address] Leonila Kern APRN-ASSEMBLY MACHINE TOOL SETTER [address] [facility], [facility] [address] [place] [address] documented as of this encounter Visit Diagnoses Not on filedocumented in this encounter Additional Health Concerns Assessment Noted Time PHQ-9 Depression Total Score: 11 023 10:35 AM EDT documented as of this encounter Care Teams Online Marketing Specialist Relationship Specialty Start Date End Date Raquel Rayo MD [address] [place] [address] [place] [address] PCP - General 09/19/10 Courtney Mayifeld MD [address] [facility], [address] [place] [address] Referring Physician Allergy and Immunology 02/12/24 documented as of this encounter
--- OUTSIDE RECORDS SUMMARY | 2024-10-02 00:29 | XMS_ITS | Encounter Summary ---
Author Organization [facility] Address [address] [place] [address] Phone Care Team Providers Care Primary Grade Teacher Name Role Phone Raquel Rayo MD Primary Care Provider [phone] Courtney Mayfield MD Unavailable [phone] Encounter Details Date Type Department Care Team (Late st Contact Info) Description 08/20/2021 Orders Only [facility] [address] [place] [address] Conversion, Onbase Social History Tobacco Use Types [...] Description 11/07/2024 11:30 AM EDT Procedure Visit [facility] [address] [place] [phone] Jodie Matthews MD [address] [place] [address] 12/19/2024 2:45 PM EDT Office Visit [facility] [address] [place] [address] Courtney Mayfield MD [address] [facility], [address] [place] [address] 02/17/2025 11:30 AM EDT Telemedicine [facility] [address] [facility] [address] [place] [phone] Leonila Kern APRN-CONTENT STRATEGIST [address] [facility], [facility] [address] [place] [address] Scheduled Orders Name Type Priority Associated Diagnoses Orde r Schedule OUTSIDE LAB SCAN Lab Ordered: 08/20/2021 documented as of this encounter Visit Diagnoses Not on filedocumented in this encounter Care Teams Primary Grade Teacher Relationship Specialty Start Date End Date Raquel Rayo MD [address] [place] [address] [place] [address] PCP - General 09/19/10 Courtney Mayfield MD [address] [facility], [address] [place] [address] Referring Physician Allergy and Immunology 02/12/24 documented as of this encounter
--- OUTSIDE RECORDS SUMMARY | 2024-10-02 00:29 | XMS_ITS | Encounter Summary ---
Author Organization [facility] Address [address] [place] [address] Phone Care Team Providers Care Real Estate Economist Name Role Phone Raquel Rayo MD Primary Care Provider [phone] Courtney Mayfield MD Unavailable Encounter Details Date Type Department Care Team (Late st Contact Info) Description 01/15/2023 Scanned Document [facility] LE[facility]Y [address] [place] [place] [address] Conversion, Onbase Social History Tobacco Use Types [...] Description 11/07/2024 11:30 AM EDT Procedure Visit [facility] [address] [place] [phone] Jodie Matthews MD [address] [place] [address] 12/19/2024 2:45 PM EDT Office Visit [facility] [address] [place] [address] Courtney Mayfield MD [address] [facility], [address] [place] [address] 02/17/2025 11:30 AM EDT Telemedicine [facility] [address] [facility] [address] [place] [address] Leonila Kern APRN-SUBSTATION ENGINEER [address] [facility], [facility] [address] [place] [address] documented as of this encounter Visit Diagnoses Not on filedocumented in this encounter Additional Health Concerns Assessment Noted Time PHQ-9 Depression Total Score: 11 023 10:35 AM EDT documented as of this encounter Care Teams Real Estate Economist Relationship Specialty Start Date End Date Raquel Rayo MD [address] [place] [address] [place] [address] PCP - General 09/19/10 Courtney Mayfield MD [address] [facility], [address] [place] [address] Referring Physician Allergy and Immunology 02/12/24 documented as of this encounter
--- OUTSIDE RECORDS SUMMARY | 2024-10-02 00:29 | XMS_ITS | Encounter Summary ---
Author Organization [facility] Address [address] [place] [address] Phone Care Team Providers Care Trestle Mainternance Laborer Name Role Phone Raquel Rayo MD Primary Care Provider [phone] Courtney Mayfield MD Unavailable [phone] Encounter Details Date Type Department Care Team (Late st Contact Info) Description 01/06/2023 Scanned Document [facility] LEGACY [address] [place] [address] Conversion, Onbase Social History Tobacco Use Types [...] 11/07/2024 11:30 AM EDT Procedure Visit [facility] [address] [place] [phone] Jodie Matthews MD [address] [place] [address] 12/19/2024 2:45 PM EDT Office Visit Formerly named [facility] [address] [place] [address] Courtney Mayfield MD [address] Formerly named [facility], [address] [place] [address] 02/17/2025 11:30 AM EDT Telemedicine [facility] [address] [facility] [address] [place] [address] Leonila Kern APRN-CHICKEN CUTTER [address] [facility], [facility] [address] [place] [address] documented as of this encounter Visit Diagnoses Not on filedocumented in this encounter Additional Health Concerns Assessment Noted Time PHQ-9 Depression Total Score: 11 023 10:35 AM EDT documented as of this encounter Care Teams Trestle Mainternance Laborer Relationship Specialty Start Date End Date Raquel Rayo MD [address] [place] [address] [place] [address] PCP - General 09/19/10 Courtney Mayfield MD [address] Formerly named [facility], [address] [place] [address] Referring Physician Allergy and Immunology 02/12/24 documented as of this encounter
--- OUTSIDE RECORDS SUMMARY | 2024-10-02 00:29 | XMS_ITS | Clinical Summary ---
Author Organization [facility] Address [address] [place] [address] Care Team Providers Care Eligibility Consultant Name Role Phone Unavailable Primary Care Provider Unavailabl e Encounters Date Type Department Care Team Description 09/13/2024 External Result Encounter [facility] External Department Unsolicited Melissa Wilson NP 09/13/2024 External Result Encounter [facility] External Department Unsolicited Melissa Wilson NP from Last 3 Months Social History Tobacco Use Types Packs/Day Years Used Date Smoking Tobacco: Never Assessed Sex and Gender Information Value Date Recorded Sex Assigned at Not on file Legal Sex Male 8:25 PM EDT Gender Identity Not on file Sexual Orientation Not on file Plan of Treatment Health Maintenance Due Date Last Done Comments CT Colonography 1961 Colonoscopy 1961 Colorectal Cancer Screening 1961 FIT-DNA 1961 FIT 1961 FOBT 1961 Sigmoidoscopy 1961 Influenza Vaccine (Season Ended) 2025 04/14/2022, 01/16/2020, 03/04/2019, Additional history exists Procedures Procedure Name Priority Date/Time Associated Diagnosis Comments FERRITIN Routine 09/13/2024 9:48 AM EDT IRON AND TOTAL IRON BINDING CAPACITY Routine 09/13/2024 9:48 AM EDT COMPREHENSIVE METABOLIC PANEL Routine 09/13/2024 9:48 AM EDT CBC WITH AUTO DIFFERENTIAL Routine 09/13/2024 9:48 AM EDT from Last 3 Months Results * (ABNORMAL) CBC auto differential (09/13/2024 9:48 AM EDT) WBC 5.3 4.1 - 10.5 10*3/uL 09/13/2024 10:16 AM EDT [facility] UNCORRECTED WHITE BLOOD COUNT 5.3 4.1 - 10.5 10*3/uL 09/13/2024 10:16 AM EDT [facility] RBC 4.75 3.90 - 5.60 10*6/uL 09/13/2024 10:16 AM EDT [facility] HEMOGLOBIN 13.7 13.0 - 17.0 g/dL 09/13/2024 10:16 AM EDT [facility] HEMATOCRIT 41.2 38.8 - 50.0 % 09/13/2024 10:16 AM EDT [facility] MCV 86.9 83.5 - 101 fL 09/13/2024 10:16 AM EDT [facility] MCH 29.0 27.5 - 35.2 pg 09/13/2024 10:16 AM EDT [facility] MCHC 33.3 32.5 - 35.6 g/dL 09/13/2024 10:16 AM EDT [facility] RED CELL DISTRIBUTION WIDTH, RDW 15.0(H) 12.0 - 14.8 % 09/13/2024 10:16 AM EDT [facility] PLATELET COUNT 187 150 - 450 10*3/uL 09/13/2024 10:16 AM EDT [facility] MEAN PLATELET VOLUME, MPV 7.7 6.6 - 10.1 fL 09/13/2024 10:16 AM EDT [facility] NEUTROPHILS, % 50.2 . % 09/13/2024 10:16 AM EDT [facility] LYMPHOCYTES, % 38.1 . % 09/13/2024 10:16 AM EDT [facility] MONOCYTE/MACROPHA GE, % 8.8 . % 09/13/2024 10:16 AM EDT [facility] EOSINOPHILS, % 1.5 . % 09/13/2024 10:16 AM EDT [facility] BASOPHILS, % 1.4 . % 09/13/2024 10:16 AM EDT [facility] NRBC 0.1 0 - 0.5 /100{WBC} 09/13/2024 10:16 AM EDT [facility] NEUTROPHILS 2.6 1.8 - 7.7 10*3/uL 09/13/2024 10:16 AM EDT [facility] LYMPHOCYTES 2.0 1.00 - 4.8 10*3/uL 09/13/2024 10:16 AM EDT [facility] MONOCYTES 0.5 0.0 - 0.8 10*3/uL 09/13/2024 10:16 AM EDT [facility] EOSINOPHILS 0.1 0.0 - 0.45 10*3/uL 09/13/2024 10:16 AM EDT [facility] BASOPHILS 0.1 0.0 - 0.2 10*3/uL 09/13/2024 10:16 AM EDT [facility] Blood (Blood) 09/13/2024 9:4 8 AM EDT 09/13/2024 9:48 AM EDT Melissa Wilson SCHOOL BUS INSPECTOR LAB BLOOD ORDERABLES Final Re sult Performing Organization Address [facility] de Phone Number [facility], [facility] [address] [place] [address], [facility] [address] [place] [phone] * [place] and TIBC (09/13/2024 9:48 AM EDT) IRON 66 50 - 212 ug/dL 09/13/2024 10:42 AM EDT [facility] TOTAL IRON BINDING CAPACITY 307 255 - 450 ug/dL 09/13/2024 10:42 AM EDT [facility] % IRON SATURATION 21.5 20 - 50 % 09/13/2024 10:42 AM EDT [facility] TRANSFERRIN 219 203 - 362 mg/dL 09/13/2024 10:42 AM EDT [facility] Other Topography unknown / Unknown 09/13/2024 9:48 AM EDT 09/13/2024 9:48 AM EDT Melissa Wilson SCHOOL BUS INSPECTOR LAB BLOOD ORDERABLES Final Re sult [facility], [facility] [address] [place] [address], [facility] [address] [place] [address] * (ABNORMAL) Ferritin (09/13/2024 9:48 AM EDT) FERRITIN 16.5(L) 23.9 - 336.2 ng/mL 09/13/2024 11:00 AM EDT [facility] Other Topography unknown / Unknown 09/13/2024 9:48 AM EDT 09/13/2024 9:48 AM EDT us Melissa Wilson SCHOOL BUS INSPECTOR LAB BLOOD ORDERABLES Final Re sult [address] [address], [facility] [address] [place] [address] * (ABNORMAL) Comprehensive metabolic panel (09/13/2024 9:48 AM EDT) Glucose 100 70 - 100 mg/dL 09/13/2024 10:42 AM EDT [facility] Comment: Random Glucose Reference Range is dependent on time and content of last meal. Glucose of more than 200 mg/dL in a nonstressed, ambulatory subject supports the diagnosis of Diabetes Mellitus. ADA recommended reference range BUN 20 7 - 25 mg/dL 09/13/2024 10:42 AM EDT [facility] CREATININE 1.06 0.70 - 1.30 mg/dL 09/13/2024 10:42 AM EDT [facility] ESTIMATED GFR >60.0 mL/Min 09/13/2024 10:42 AM EDT [facility] Sodium 138 136 - 145 mmol/L 09/13/2024 10:42 AM EDT [facility] Potassium, Bld 3.9 3.5 - 5.1 mmol/L 09/13/2024 10:42 AM EDT [facility] Chloride 110(H) 98 - 107 mmol/L 09/13/2024 10:42 AM EDT [facility] Carbon Dioxide 23.6 21.0 - 31.0 mmol/L 09/13/2024 10:42 AM EDT [facility] Anion Gap 8.3 6.0 - 15.0 meq/L 09/13/2024 10:42 AM EDT [facility] Calcium 8.4(L) 8.6 - 10.3 mg/dL 09/13/2024 10:42 AM EDT [facility] TOTAL PROTEIN 6.5 6.4 - 8.9 g/dL 09/13/2024 10:42 AM EDT [facility] ALBUMIN LEVEL 3.7 3.5 - 5.7 g/dL 09/13/2024 10:42 AM EDT [facility] GLOBULIN 2.8 g/dL 09/13/2024 10:42 AM EDT [facility] ALBUMIN/GLOBULIN RATIO 1.3 09/13/2024 10:42 AM EDT [facility] BILIRUBIN,TOTAL 0.3 0.3 - 1.0 mg/dL 09/13/2024 10:42 AM EDT [facility] ASPARTATE AMINO TRANSFERASE 13 13 - 39 U/L 09/13/2024 10:42 AM EDT [facility] ALANINE AMINOTRANSFERASE 9 7 - 52 U/L 09/13/2024 10:42 AM EDT [facility] ALKALINE PHOSPHATASE 94 34 - 104 U/L 09/13/2024 10:42 AM EDT [facility] CREATININE [facility]LR [facility] 78.31 09/13/2024 10:42 AM T [facility] Other Topography unknown / Unknown 09/13/2024 9:48 AM EDT 09/13/2024 9:48 AM EDT Melissa Wilson SCHOOL BUS INSPECTOR LAB BLOOD ORDERABLES Final Re sult [facility], [facility] [address] [facility] [place] [address], [facility] [address] [place] [address] from Last 3 Months Insurance [employer]
--- OUTSIDE RECORDS SUMMARY | 2024-10-02 00:29 | XMS_ITS | Encounter Summary ---
Author Organization [facility] Address [address] [place] [address] Phone Care Team Providers Care Neighborhood Conservation Officer Name Role Phone Raquel Rayo MD Primary Care Provider [phone] Courtney Mayfield MD Unavailable [phone] Encounter Details Date Type Department Care Team (Late st Contact Info) Description 01/12/[address] [facility] LEGACY [address] [place] [address] Conversion, Onbase Social History Tobacco Use Types [...] Description 11/07/2024 11:30 AM EDT Procedure Visit [facility] [address] [place] [phone] Jodie Matthews MD [address] [place] [address] 12/19/2024 2:45 PM EDT Office Visit [facility] [address] [facility] [address] [place] [address] Courtney Mayfield MD [address] [facility], [address] [place] [address] 02/17/2025 11:30 AM EDT Telemedicine [facility] [address] [place] [facility] [address] [place] [address] Leonila Kern AIRPORT SECURITY SCREENER-FILM PAINTER [address] [place] [facility], [facility] [address] [place] [address] Scheduled Orders Name Type Priority Associated Diagnoses Orde r Schedule OUTSIDE LAB SCAN Lab Ordered: 01/12/2018 documented as of this encounter Visit Diagnoses Not on filedocumented in this encounter Care Teams Neighborhood Conservation Officer Relationship Specialty Start Date End Date Raquel Rayo MD [address] [place] [address] PCP - General 09/19/10 Courtney Mayfield MD [address] [facility], [address] [place] [address] Referring Physician Allergy and Immunology 02/12/24 documented as of this encounter
--- OUTSIDE RECORDS SUMMARY | 2024-10-02 00:29 | XMS_ITS | Encounter Summary ---
Author Organization [facility] Address [address] [place] [address] Phone Care Team Providers Care Garage Supervisor Name Role Phone Raquel Raoy MD Primary Care Provider [phone] Courtney Mayfield MD Unavailable Encounter Details Date Type Department Care Team (Late st Contact Info) Description 04/16/[address] [facility] [address] [facility] [address] [place] [address] Courtney Mayfield MD 960 [facility], [address] [place], [place] [id number] Social History Tobacco Use Types Packs/Day Years [...] [facility] [address] [facility] [address] [place] [address] Jodie Matthews MD [address] [place] [address] 12/19/2024 2:45 PM EDT Office Visit [facility] [address] [facility] [address] [place] [address] Courtney Mayfield MD [address] [facility], [facility] [address] [place] [address] 02/17/2025 11:30 AM EDT Telemedicine [facility] [address] [facility] [address] [place] [phone] Leonila Kern APRN-STEELWORKER [address] [place] [facility], [facility] [address] [place] [address] documented as of this encounter Visit Diagnoses Not on filedocumented in this encounter Additional Health Concerns Assessment Noted Time PHQ-9 Depression Total Score: 11 023 10:35 AM EDT A fall risk assessment has been complete d for the patient 02/16/2023 10:23 AM EDT documented as of this encounter Care Teams Garage Supervisor Relationship Specialty Start Date End Date Raquel Rayo MD [address] [place] [address] [place] [address] PCP - General 09/19/10 Courtney Mayfield MD [address] [facility], [facility] [address] [place] [address] Referring Physician Allergy and Immunology 02/12/24 documented as of this encounter
--- OUTSIDE RECORDS SUMMARY | 2024-10-02 00:29 | XMS_ITS | Encounter Summary ---
Author Organization [facility] Address [address] [place] [address] Phone Care Team Providers Care Welfare Visitor Name Role Phone Raquel Rayo MD Primary Care Provider [phone] Courtney Mayfield MD Unavailable Encounter Details Date Type Department Care Team (Late st Contact Info) Description 01/08/2023 Orders Only [facility] LEGACY [address] [place] [address] Conversion, Onbase Social History Tobacco Use Types [...] EDT Procedure Visit [facility] [address] [place] [phone] Jodie Matthews MD [address] [place] [address] 12/19/2024 2:45 PM EDT Office Visit [facility] [address] [place] [address] Courtney Mayfield MD [address] [facility], [facility] [address] [place] [address] 02/17/2025 11:30 AM EDT Telemedicine [facility] [address] [facility] [address] [place] [address] Leonila Kern APRN-METER READERS SUPERVISOR [address] [facility], [facility] [address] [place] [address] Scheduled Orders Name Type Priority Associated Diagnoses Orde r Schedule OUTSIDE LAB SCAN Lab Ordered: 01/08/2023 documented as of this encounter Visit Diagnoses Not on filedocumented in this encounter Additional Health Concerns Assessment Noted Time PHQ-9 Depression Total Score: 11 023 10:35 AM EDT documented as of this encounter Care Teams Welfare Visitor Relationship Specialty Start Date End Date Raquel Rayo MD [address] [place] [address] PCP - General 09/19/10 Courtney Mayfield MD [address] [facility], [facility] [address] [place] [address] Referring Physician Allergy and Immunology 02/12/24 documented as of this encounter
--- OUTSIDE RECORDS SUMMARY | 2024-10-02 00:29 | XMS_ITS | Encounter Summary ---
Author Organization [facility] Address [address] [place] [address] Care Team Providers Care Nematology Teacher Name Role Phone Unavailable Primary Care Provider Unavailabl e Encounter Details Date Type Department Care Team (Late st Contact Info) Description 09/04/2023 Abstract [facility] [address] [place] [phone] Park Reinoso MD [address] [place] [address] Social History Tobacco Use Types Packs/Day Years [...]
--- OUTSIDE RECORDS SUMMARY | 2024-10-02 00:29 | XMS_ITS | Encounter Summary ---
Author Organization [facility] Address [address] [place] [address] Phone Care Team Providers Care Airline Reservationist Name Role Phone Raquel Rayo MD Primary Care Provider [phone] Courtney Mayfield MD Unavailable [phone] Encounter Details Date Type Department Care Team (Late st Contact Info) Description 07/28/2023 Scanned Document [facility] [address] [facility] [address] [place] [address] Courtney Mayfield MD 960 [facility], [facility] [address] [place], [place] [phone] Social History Tobacco Use Types Packs/Day Years [...] suspected to have Coronavirus/COVID-19? No / Unsure 07/15/2023 11:16 AM EDT documented as of this encounter Plan of Treatment Upcoming Encounters Date Type Department Care Team (Late st Contact Info) Description 11/07/2024 11:30 AM EDT Procedure Visit [facility] [address] [facility] [address] [place] [phone] Jodie Matthews MD [address] [place] [address] 12/19/2024 2:45 PM EDT Office Visit [facility] [address] [facility] [address] [place] [address] Courtney Mayfield MD [address] [facility], [facility] [address] [place], [place] [phone] 02/17/2025 11:30 AM EDT Telemedicine [facility] [address] [facility] [address] [place] [phone] Leonila Kern APRN-PRATIMA [address] [facility], [facility] [address] [place] [address] documented as of this encounter Visit Diagnoses Not on filedocumented in this encounter Additional Health Concerns Assessment Noted Time PHQ-9 Depression Total Score: 10 024 3:38 PM EST A fall risk assessment has been complete d for the patient 06/22/2023 3:38 PM EST documented as of this encounter Care Teams Airline Reservationist Relationship Specialty Start Date End Date Raquel Rayo MD [address] [place] [address] PCP - General 09/19/10 Courtney Mayfield MD [address] [facility], [facility] [address] [place] [address] Referring Physician Allergy and Immunology 02/12/24 documented as of this encounter
--- OUTSIDE RECORDS SUMMARY | 2024-10-02 00:29 | XMS_ITS | Encounter Summary ---
Author Organization [facility] Address [address] [place] [address] Phone Care Team Providers Care Outside Plant Field Engineer Name Role Phone Raquel Rayo MD Primary Care Provider [phone] Courtney Mayfield MD Unavailable [phone] Encounter Details Date Type Department Care Team (Late st Contact Info) Description 04/20/2023 Scanned Document [facility] [address] [facility] [address] [place] [address] Courtney Mayfield MD 960 [facility], [facility] [address] [place], [place] [phone] Social History Tobacco Use Types Packs/Day Years [...] Description 11/07/2024 11:30 AM EDT Procedure Visit [facility] [address] [facility] [address] [place] [phone] Jodie Matthews MD [address] [place] [address] 12/19/2024 2:45 PM EDT Office Visit [facility] [address] [facility] [address] [place] [phone] Courtney Mayfield MD [address] [facility], [address] [phone] 02/17/2025 11:30 AM EDT Telemedicine [facility] [address] [facility] [address] [place] [phone] Leonila Kern APRN-RIBBON SWEATBAND OPERATOR [address] [facility], [facility] [address] [place] [address] documented as of this encounter Visit Diagnoses Not on filedocumented in this encounter Additional Health Concerns Assessment Noted Time PHQ-9 Depression Total Score: 11 023 10:35 AM EDT A fall risk assessment has been complete d for the patient 02/16/2023 10:23 AM EDT documented as of this encounter Care Teams Outside Plant Field Engineer Relationship Specialty Start Date End Date Raquel Rayo MD [address] [place] [address] PCP - General 09/19/10 Courtney Mayfield MD [address] [facility], [facility] [address] [place], [place] [phone] Referring Physician Allergy and Immunology 02/12/24 documented as of this encounter
--- OUTSIDE RECORDS SUMMARY | 2024-10-02 00:29 | XMS_ITS | Encounter Summary ---
Author Organization [facility] Address [address] [place] [address] Phone Care Team Providers Care Rubber Press Operator Name Role Phone Raquel Rayo MD Primary Care Provider [phone] Courtney Mayfield MD Unavailable [phone] Encounter Details Date Type Department Care Team (Late st Contact Info) Description 09/15/2024 Scanned Document [facility] [address] [place] [address] Courtney Mayfield MD [address] [facility], [facility] [address] [place] [id number] Social History Tobacco Use Types Packs/Day Years Used Date Smoking Tobacco: Never Smokeless Tobacco: Never Alcohol Use Standard Drinks/Week Comments Never 0 (1 standard drink = 0.6 oz pur e alcohol) B1300 Health Literacy Answer Date Recor ded How often do you need to hav e someone help you when you read instructions, pamphlets, or other written material from your doctor or pharmacy? Sometimes 01/02/2024 [facility] Utilities Answer Date Recorded In the past 12 months has e electric, gas, oil, or water company threatened to shut off services in your home? Yes 01/02/2024 Social Connection and Isolat ion Panel [NHANES] Answer Date Recorded In a typical week, how many times do you talk on the phone with family, friends, or neighbors? Twice a week 07/24/2024 How often do you get togethe r with friends or relatives? Twice a week 07/24/2024 How often do you attend chur ch or congregational services? More than 4 times per year 07/24/2024 Do you belong to any clubs o r organizations such as religious groups, unions, fraternal or athletic groups, or school groups? Yes 07/24/2024 How often do you attend meet ings of the clubs or organizations you belong to? More than 4 times per year 07/24/2024 Are you , , di vorced, , never , or living with a partner? 07/24/2024 AUDIT-C Answer Date Recorded Q1: How often do you have a drink containing alcohol? Never 07/24/2024 Q2: How many drinks containi ng alcohol do you have on a typical day when you are drinking? Patient does not drink Q3: How often do you have si x or more drinks on one occasion? Never 07/24/2024 Overall Financial Resource Strain (CARDIA) Answe r Date Recorded How hard is it for you to pa y for the very basics like food, housing, medical care, and heating? Very hard 07/24/2024 PHQ-2 Answer Date Recorded Patient Health Questionnaire-2 Score 0 09/12/2024 [facility] Occupat ional Health - Occupational Stress Questionnaire Answer Date Recorded Do you feel stress - tense, restless, nervous, or anxious, or unable to sleep at night because your mind is troubled all the time - these days? To some extent 07/24/2024 Exercise Vital Sign Answer Date Recorde d On average, how many days pe r week do you engage in moderate to strenuous exercise (like a brisk walk)? 5 days 01/02/2024 On average, how many minutes do you engage in exercise at this level? 30 min 01/02/2024 Hunger Vital Sign Answer Date Recorded Within the past 12 months, y ou worried that your food would run out before you got the money to buy more. Often true 07/25/19 25 Within the past 12 months, t he food you bought just didn't last and you didn't have money to get more. Often true 07/24/2024 PRAPARE - Transportation Answer Date Re corded In the past 12 months, has l ack of transportation kept you from medical appointments or from getting medications? No 07/03 In the past 12 months, has l ack of transportation kept you from meetings, work, or from getting things needed for daily living? No 07/24/2024 Housing Stability Vital Sign Answer Mir e Recorded In the last 12 months, was t here a time when you were not able to pay the mortgage or rent on time? Yes 07/24/2024 In the past 12 months, how m any times have you moved where you were living? 0 07/24/2024 At any time in the past 12 m [facility], were you homeless or living in a long-term (including now)? No 07/24/2024 Sex and Gender Information Value Date Recorded Sex Assigned at Not on file Legal Sex Male 11:51 PM EST Gender Identity Not on file Sexual Orientation Not on file COVID-19 Exposure Response Date Recorded In the last 10 days, have yo u been in contact with someone who was confirmed or suspected to have Coronavirus/COVID-19? No / Unsure 09/12/2024 2:10 PM EDT documented as of this encounter Plan of Treatment Upcoming Encounters Date Type Department Care Team (Late st Contact Info) Description 11/07/2024 11:30 AM EDT Procedure Visit [facility] [address] [place] [phone] Jodie Matthews MD [address] [place] [address] 12/19/2024 2:45 PM EDT Office Visit [facility] [address] [facility] [address] [place] [address] Courtney Mayfield MD [address] [facility], [facility] [address] [place], [place] [phone] 02/17/2025 11:30 AM EDT [facility] [address] [place] [address] Leonila Kern APRN-ASSISTANT FRONT END MANAGER [address] ABDI [facility], [address] [place] [address] documented as of this encounter Visit Diagnoses Not on filedocumented in this encounter Additional Health Concerns Assessment Noted Time PHQ-9 Depression Total Score: 23 025 11:53 AM EDT A fall risk assessment has been complete d for the patient 09/12/2024 2:25 PM EDT documented as of this encounter Care Teams Rubber Press Operator Relationship Specialty Start Date End Date Raquel Rayo MD [address] [place] [address] [place] [address] PCP - General 09/19/10 Courtney Mayfield MD [address] [facility], [address] [place] [address] Referring Physician Allergy and Immunology 02/12/24 documented as of this encounter
--- OUTSIDE RECORDS SUMMARY | 2024-10-02 00:29 | XMS_ITS | Encounter Summary ---
Author Organization [facility] Address [address] [place] [address] Phone Care Team Providers Care Collar Sewer Name Role Phone Raquel Rayo MD Primary Care Provider [phone] Courtney Mayfield MD Unavailable [phone] Encounter Details Date Type Department Care Team (Late st Contact Info) Description 11/13/2023 Scanned Document [facility] [address] [facility] [address] [place] [address] Courtney Mayfield MD 960 [facility], [facility] [address] [place], [place] [phone] Social History Tobacco Use Types Packs/Day Years [...] Description 11/07/2024 11:30 AM EDT Procedure Visit [facility] [address] [facility] [address] [place] [address] Jodie Matthews MD [address] [facility] [address] [place] [address] 12/19/2024 2:45 PM EDT Office Visit [facility] [address] [facility] [address] [place] [address] Courtney Mayfield MD [address] [facility], [facility] [address] [place] [address] 02/17/2025 11:30 AM EDT Telemedicine [facility] [address] [place] [address] [facility] [address] [place] [phone] Leonila Kern APRN-WAREHOUSE STOCKER [address] [facility], [facility] [address] [place] [address] documented as of this encounter Visit Diagnoses Not on filedocumented in this encounter Additional Health Concerns Assessment Noted Time PHQ-9 Depression Total Score: 14 024 10:35 AM EDT A fall risk assessment has been complete d for the patient 10/08/2023 10:34 AM EDT documented as of this encounter Care Teams Collar Sewer Relationship Specialty Start Date End Date Raquel Rayo MD [address] [place] [address] PCP - General 09/19/10 Courtney Mayfield MD [address] [facility], [facility] [address] [place] [address] Referring Physician Allergy and Immunology 02/12/24 documented as of this encounter
--- OUTSIDE RECORDS SUMMARY | 2024-10-02 00:30 | XMS_ITS | Encounter Summary ---
Author Organization [facility] Address [address] [place] [address] Phone Care Team Providers Care Supervisor Sleeping Bag Department Name Role Phone Raquel Rayo MD Primary Care Provider Courtney Mayfield MD Unavailable Reason for Visit * Reason Comments Med Refill Encounter Details Date Type Department Care Team (Late st Contact Info) Description 09/22/2024 Refill [facility] [address] [place] [address] Courtney Mayfield MD 960 [facility], [facility] [address] [place], [place] [phone] Asthma with chronic obstructive pulmonary disease (COPD) (Multi) Social History Tobacco Use Types Packs/Day Years [...] from your doctor or pharmacy? Sometimes 01/02/2024 [facility] Utilities Answer Date Recorded In the [...] 07/24/2024 How often do you attend chur or methodist services? More than 4 times per year 07/24/2024 Do you belong to any clubs o r organizations such as baptism groups, unions, fraternal or athletic groups, or [...] Recorded Patient Health Questionnaire-2 Score 0 09/12/2024 [facility] of Occupat ional Health - Occupational Stress [...] were you homeless or living in a alf (including now)? No 07/24/2024 Sex and Gender [...] Visit [facility] [address] [place] [address] Jodie Matthews MD [address] [place] [address] 12/19/2024 2:45 PM EDT Office Visit [facility] [address] [facility] [address] [place] [address] Courtney Mayfield MD [address] [facility], [facility] [address] [place] [address] 02/17/2025 11:30 AM EDT Telemedicine [facility] [address] [place] [address] Leonila Kern APRN-UTILITIES ESTIMATOR AND DRAFTER [address] [facility], [facility] [address] [place] [address] documented as of this encounter Visit Diagnoses Diagnosis Asthma with chronic obstructive pulmonary disease (COPD) (Multi) Chronic obstructive asthma, unspecified documented in this encounter Additional Health Concerns Assessment Noted Time PHQ-9 Depression Total Score: 23 025 11:53 AM EDT A fall risk assessment has been complete d for the patient 09/12/2024 2:25 PM EDT documented as of this encounter Care Teams Supervisor Sleeping Bag Department Relationship Specialty Start Date End Date Raquel Rayo MD [address] [place] [address] PCP - General 09/19/10 Courtney Mayfield MD [address] [facility], [facility] [address] [place] [address] Referring Physician Allergy and Immunology 02/12/24 documented as of this encounter
--- OUTSIDE RECORDS SUMMARY | 2024-10-02 00:30 | XMS_ITS | Encounter Summary ---
Author Organization [facility] Address [address] [place] [address] Care Team Providers Care Environmental Maintenance Worker Name Role Phone Raquel Rayo MD Primary Care Provider [phone] Reason for Visit * Reason Comments Medication Refill Encounter Details Date Type Department Care Team ([facility] st Contact Info) Description 02/01/[address] [facility] Neurology Specialist [address] [facility] [address] [place] [phone] Juan C Angelo MD [address] [place], [place] [phone] Medication Refill Social History Tobacco Use Types Packs/Day Years [...] filedocumented in this encounter Additional Health Concerns Infection Onset Date Last Indicated Resolved Time COVID-19 (Rule Out) Comment:ED Admission with COVID compatible/suspicious symptoms 09/08/2020 09/08/2020 05/08/202 1 4:19 PM EDT documented as of this encounter Care Teams Environmental Maintenance Worker Relationship Specialty Start Date End Date Raquel Raoy MD PCP - General Family Medicine 11/21/19 documented as of this encounter
--- OUTSIDE RECORDS SUMMARY | 2024-10-02 00:30 | XMS_ITS | Encounter Summary ---
Author Organization [facility] Address [address] [place] [address] Phone Care Team Providers Care Plumbing Engineer Name Role Phone Raquel Rayo MD Primary Care Provider Courtney Mayfield MD Unavailable [phone] Encounter Details Date Type Department Care Team (Late st Contact Info) Description 09/20/2024 Scanned Document [facility] [address] [place] [address] Courtney Mayfield MD [address] [facility], [facility] [address] [place] [phone] Social History Tobacco Use Types Packs/Day Years [...] from your doctor or pharmacy? Sometimes 01/02/2024 [facility] Utilities Answer Date Recorded In the [...] often do you attend chur ch or episcopal services? More than 4 times per year 07/24/2024 Do you belong to any clubs o r organizations such as adventist groups, unions, fraternal or athletic groups, or [...] Recorded Patient Health Questionnaire-2 Score 0 09/12/2024 [facility] of Occupat ional Health - Occupational Stress [...] any time in the past 12 m [facility], were you homeless or living in a fpc (including now)? No 07/24/2024 Sex and Gender [...] Description 11/07/2024 11:30 AM EDT Procedure Visit [facility] [address] [place] [phone] Jodie Matthews MD [address] [place] [address] 12/19/2024 2:45 PM EDT Office Visit [facility] [address] [facility] [address] [place] [address] Courtney Mayfield MD [address] [facility], [facility] [address] [place], [place] [phone] 02/17/2025 11:30 AM EDT [facility]icine [facility] [address] [place] [address] Leonila Kern APRN-ROD MACHINE OPERATOR [address] ABDI [facility], [address] [place] [address] documented as of this encounter Visit Diagnoses Not on filedocumented in this encounter Additional Health Concerns Assessment Noted Time PHQ-9 Depression Total Score: 23 025 11:53 AM EDT A fall risk assessment has been complete d for the patient 09/12/2024 2:25 PM EDT documented as of this encounter Care Teams Plumbing Engineer Relationship Specialty Start Date End Date Raquel Rayo MD [address] [place] [address] [place] [address] PCP - General 09/19/10 Courtney Mayfield MD [address] [facility], [address] [place] [address] Referring Physician Allergy and Immunology 02/12/24 documented as of this encounter
--- OUTSIDE RECORDS SUMMARY | 2024-10-02 00:30 | XMS_ITS | Encounter Summary ---
Author Organization [facility] Address [address] [place] [address] Phone Care Team Providers Care Rfid Strategist Name Role Phone Raquel Rayo MD Primary Care Provider [phone] Courtney Mayfield MD Unavailable [phone] Encounter Details Date Type Department Care Team (Late st Contact Info) Description 09/19/2024 Scanned Document [facility] [address] [place] [address] Courtney Mayfield MD [address] [facility], [facility] [address] [place] [phone] Social History Tobacco Use Types Packs/Day Years [...] from your doctor or pharmacy? Sometimes 01/02/2024 [facility] Utilities Answer Date Recorded In the [...] often do you attend chur ch or sikhism services? More than 4 times per year 07/24/2024 Do you belong to any clubs o r organizations such as caodaism groups, unions, fraternal or athletic groups, or [...] Recorded Patient Health Questionnaire-2 Score 0 09/12/2024 [facility] of Occupat ional Health - [...] any time in the past 12 m [facility], were you homeless or living in a residential (including now)? No 07/24/2024 Sex and Gender [...] Description 11/07/2024 11:30 AM EDT Procedure Visit [facility] [address] [place] [phone] Jodie Matthews MD [address] [place] [address] 12/19/2024 2:45 PM EDT Office Visit [facility] [address] [facility] [address] [place] [address] Courtney Mayfield MD [address] [facility], [facility] [address] [place], [place] [phone] 02/17/2025 11:30 AM EDT Tele[facility]icine [facility] [address] [place] [address] Leonila Kern APRN-KITMAN [address] ABDI [facility] [place], [address] [place] [address] documented as of this encounter Visit Diagnoses Not on filedocumented in this encounter Additional Health Concerns Assessment Noted Time PHQ-9 Depression Total Score: 23 025 11:53 AM EDT A fall risk assessment has been complete d for the patient 09/12/2024 2:25 PM EDT documented as of this encounter Care Teams Rfid Strategist Relationship Specialty Start Date End Date Raquel Rayo MD [address] [place] [address] [place] [address] PCP - General 09/19/10 Courtney Mayfield MD [address] [facility], [address] [place] [address] Referring Physician Allergy and Immunology 02/12/24 documented as of this encounter
--- OUTSIDE RECORDS SUMMARY | 2024-10-02 00:30 | XMS_ITS | Encounter Summary ---
Author Organization [facility] Address [address] [place] [address] Care Team Providers Care Nuclear Plant Operator Name Role Phone Raquel Rayo MD Primary Care Provider [phone] Reason for Visit * Reason Comments Medication Refill Encounter Details Date Type Department Care Team (Late st Contact Info) Description 08/26/2019 Refill [facility] [place] [address] [place] [address] Deats, Oni Rowan, BIG DATA DEVELOPER - STRAIGHT KNIFE CUTTER MACHINE [address] [facility] [address] [place] [phone] Medication Refill Social History Tobacco Use Types [...] Last Indicated Resolved Time COVID-19 (Rule Out) 12/08/2019 12/08/2019 12/11/19 20 4:07 PM EDT COVID-19 (Rule Out) Comment:ED Admission with COVID compatible/suspicious symptoms 09/08/2020 09/08/2020 4:19 PM EDT documented as of this encounter Care Teams Nuclear Plant Operator Relationship Specialty Start Date End Date Raquel Rayo MD PCP - General Family Medicine 11/21/19 documented as of this encounter
--- OUTSIDE RECORDS SUMMARY | 2024-10-02 00:30 | XMS_ITS | Encounter Summary ---
Author Organization [facility] Address [address] [place] [address] Phone Care Team Providers Care Commercial Helicopter Pilot Name Role Phone Raquel Rayo MD Primary Care Provider [phone] Courtney Mayfield MD Unavailable Encounter Details Date Type Department Care Team (Late st Contact Info) Description 09/27/2024 Scanned Document [facility] [address] [place] [address] Courtney Mayfield MD 960 [facility], [facility] [address] [place] [phone] Social History Tobacco Use Types Packs/Day Years [...] from your doctor or pharmacy? Sometimes 01/02/2024 [facility] Utilities Answer Date Recorded In the [...] often do you attend chur ch or catholic services? More than 4 times per year 07/24/2024 Do you belong to any clubs o r organizations such as pentecostal groups, unions, fraternal or athletic groups, or [...] Recorded Patient Health Questionnaire-2 Score 0 09/12/2024 [facility] of Occupat ional Health - Occupational Stress [...] any time in the past 12 m [facility], were you homeless or living in a half-way (including now)? No 07/24/2024 Sex and Gender [...] Description 11/07/2024 11:30 AM EDT Procedure Visit [facility] [address] [place] [phone] Jodie Matthews MD [address] [place] [address] 12/19/2024 2:45 PM EDT Office Visit [facility] [address] [facility] [address] [place] [address] Courtney Mayfield MD [address] [facility], [facility] [address] [place], [place] [phone] 02/17/2025 11:30 AM EDT [facility] [address] [place] [address] Leonila Kern APRN-MASTER PRINTER [address] ABDI [facility], [address] [place] [address] documented as of this encounter Visit Diagnoses Not on filedocumented in this encounter Additional Health Concerns Assessment Noted Time PHQ-9 Depression Total Score: 23 025 11:53 AM EDT A fall risk assessment has been complete d for the patient 09/12/2024 2:25 PM EDT documented as of this encounter Care Teams Commercial Helicopter Pilot Relationship Specialty Start Date End Date Raquel Rayo MD [address] [place] [address] [place] [address] PCP - General 09/19/10 Courtney Mayfield MD 0 [facility], [address] [place] [address] Referring Physician Allergy and Immunology 02/12/24 documented as of this encounter
--- OUTSIDE RECORDS SUMMARY | 2024-10-02 00:30 | XMS_ITS | Encounter Summary ---
Author Organization [facility] Address [address] [place] [address] Care Team Providers Care Case Operator Name Role Phone Raquel Rayo MD Primary Care Provider [phone] Reason for Visit * Reason Comments Medication Refill Encounter Details Date Type Department Care Team (Late st Contact Info) Description 08/28/2019 Refill [facility] Primary Care [place] [address] [place] [address] Deats, Oni Rowan, BACKREST ASSEMBLER - ENTERPRISE MOBILITY ARCHITECT [address] [facility] [address] [place] [phone] Medication Refill Social History Tobacco Use Types [...] documented as of this encounter Care Teams Case Operator Relationship Specialty Start Date End Date Raquel Rayo MD PCP - General Family Medicine 11/21/19 documented as of this encounter
--- OUTSIDE RECORDS SUMMARY | 2024-10-02 00:30 | XMS_ITS ---
Author Organization [facility] Address [address] [place] [address] Phone Care Team Providers Care Dude Ranch Manager Name Role Phone Raquel Rayo MD Primary Care Provider [phone] Courtney Mayfield MD Unavailable [phone] Pulmonology Core Status:Enrolled (Active) Start date:04/16/2023 Enrollment date:09/22/2024 Current support & services provided:Clinical Management, Refill Management, Benefits and PA Management Linked medications:tezepelumab-ekko (Active) Linked problems:Asthma with chronic obstructive pulmonary disease (COPD) (Multi) (Active), Asthma, severe persistent, poorly-controlled, with acute exacerbation (Multi) (Resolved) Overview CORE Program - [facility] Continued Care and Services Coordination
--- OUTSIDE RECORDS SUMMARY | 2024-10-02 00:30 | XMS_ITS | Encounter Summary ---
Author Organization [facility] Address [address], [place] [address] Care Team Providers Care Disintegrator Operator Name Role Phone Raquel Rayo MD Primary Care Provider [phone] Reason for Visit * Reason Comments Medication Refill Encounter Details Date Type Department Care Team ([facility] st Contact Info) Description 12/25/2019 Refill [facility] Primary Care [place] [address] [place] [phone] Bertram Peters, WAD BLANKING PRESS ADJUSTER - OSTRICH FARM WORKER [address] [place] [address] Medication Refill Social History Tobacco Use Types [...] Exposure Response Date Recorded In the last month, have you been in contact with someone who was confirmed or suspected to have Coronavirus / COVID-19? No / Unsure 12/08/2019 11:51 AM EDT documented as of this encounter Plan of Treatment Not on file documented as of this encounter Visit Diagnoses Not on filedocumented in this encounter Additional Health Concerns Infection Onset Date Last Indicated Resolved Time COVID-19 (Rule Out) Comment:ED Admission with COVID compatible/suspicious symptoms 09/08/2020 09/08/2020 4:19 PM EDT documented as of this encounter Care Teams Disintegrator Operator Relationship Specialty Start Date End Date Raquel Rayo MD PCP - General Family Medicine 11/21/19 documented as of this encounter
--- OUTSIDE RECORDS SUMMARY | 2024-10-02 00:30 | XMS_ITS | Encounter Summary ---
Author Organization [facility] Address [address] [place] [address] Phone Care Team Providers Care Telescope Maintenance Name Role Phone Raquel Rayo MD Primary Care Provider [phone] Courtney Mayfield MD Unavailable Encounter Details Date Type Department Care Team (Late st Contact Info) Description 09/19/2024 Scanned Document [facility] [address] [place] [address] Courtney Mayfield MD 960 [facility], [facility] [address] [place] [id number] Social History Tobacco Use Types Packs/Day Years [...] from your doctor or pharmacy? Sometimes 01/02/2024 [facility] Utilities Answer Date Recorded In the past [...] often do you attend chur ch or voodoo services? More than 4 times per year 07/24/2024 Do you belong to any clubs o r organizations such as yazdanism groups, unions, fraternal or athletic groups, or [...] Health Questionnaire-2 Score 0 09/12/2024 [facility] - Occupational [...] any time in the past 12 m [facility], were you homeless or living [...] 11/07/2024 11:30 AM EDT Procedure Visit [facility] [address] [place] [phone] Jodie Matthews MD [address] [place] [address] 12/19/2024 2:45 PM EDT Office Visit [facility] [address] [facility] [address] [place] [address] Courtney Mayfield MD [address] [facility], [facility] [address] [place], [place] [phone] 02/17/2025 11:30 AM EDT [facility] [address] [place] [address] Leonila Kern APRN-STICK ROLLER [address] ABDI [facility], [address] [place] [address] documented as of this encounter Visit Diagnoses Not on filedocumented in this encounter Additional Health Concerns Assessment Noted Time PHQ-9 Depression Total Score: 23 025 11:53 AM EDT A fall risk assessment has been complete d for the patient 09/12/2024 2:25 PM EDT documented as of this encounter Care Teams Telescope Maintenance Relationship Specialty Start Date End Date Raquel Rayo MD [address] [place] [address] [place] [address] PCP - General 09/19/10 Courtney Mayfield MD 0 [facility], [address] [place] [address] Referring Physician Allergy and Immunology 02/12/24 documented as of this encounter
--- OUTSIDE RECORDS SUMMARY | 2024-10-02 00:30 | XMS_ITS ---
Author Organization [facility] Address [address] [place] [address] Phone Care Team Providers Care Architectural Model Maker Name Role Phone Raquel Rayo MD Primary Care Provider [phone] Courtney Mayfield MD Unavailable [phone] Migraine Core Status:Enrolled (Active) Start date:06/22/2023 Enrollment date:06/22/2023 Current support & services provided:Clinical Management, Refill Management, Benefits and PA Management Linked medications:erenumab-aooe (Discontinued), galcanezumab-gnlm (Active) Linked problems:Chronic migraine without aura without status migrainosus, not intractable (Active) Continued Care and Services Coordination
--- OUTSIDE RECORDS SUMMARY | 2024-10-02 00:30 | XMS_ITS | Encounter Summary ---
Author Organization [facility] Address [address] [place] [address] Care Team Providers Care Mechanical Engineering Intern Name Role Phone Raquel Rayo MD Primary Care Provider [phone] Reason for Visit * Reason Comments Medication Refill Encounter Details Date Type Department Care Team (Late st Contact Info) Description 05/10/2019 Refill [facility] Primary Care [place] [address] [place] [address] Deats, Oni Rowan, SOCIAL WORK SUPERVISOR - CAMP MAINTENANCE SUPERVISOR [address] [facility] [address] [place] [id number] Medication Refill Social History Tobacco Use Types [...] documented as of this encounter Care Teams Mechanical Engineering Intern Relationship Specialty Start Date End Date Raquel Rayo MD PCP - General Family Medicine 11/21/19 documented as of this encounter
--- OUTSIDE RECORDS SUMMARY | 2024-10-02 00:30 | XMS_ITS | Encounter Summary ---
Author Organization [facility] Address [address] [place] [address] Phone Care Team Providers Care Res Counselor Name Role Phone Raquel Rayo MD Primary Care Provider [phone] Courtney Mayfield MD Unavailable [phone] Encounter Details Date Type Department Care Team (Latest Contact Info) Description 09/22/2024 [facility] [address] [place] [address] [address] Refill Coordination Outreach (28 day recurrence) - tezepelumab-ekko (Tezspire) for Pulmonology Core, Refill Coordination Outreach (28 day recurrence) - galcanezumab-gnlm (Emgality Pen) for Migraine Core, Refill Coordination Outreach (30 day recurrence) - sumatriptan succinate (Imitrex) for Migraine Non-Core Social History Tobacco Use Types Packs/Day Years [...] from your doctor or pharmacy? Sometimes 01/02/2024 [facility] Utilities Answer Date Recorded In the [...] often do you attend chur ch or alevism services? More than 4 times per year 07/24/2024 Do you belong to any clubs o r organizations such as hinduism groups, unions, fraternal or athletic groups, or [...] Recorded Patient Health Questionnaire-2 Score 0 09/12/2024 [facility] Questionnaire Answer Date Recorded [...] any time in the past [address] [facility], were you homeless or living in a halfway (including now)? No 07/24/2024 Sex and Gender [...] Procedure Visit [facility] [address] [facility] [address] [place] [phone] Jodie Matthews MD [address] [place] [address] 12/19/2024 2:45 PM EDT Office Visit [facility] [address] [facility] [address] [place] [address] Courtney Mayfield MD [address] [facility], [facility] [address] [place], [place] [id number] 02/17/2025 11:30 AM EDT Telemedicine [facility] [address] [facility] [address] [place] [address] Leonila Kern APRN-PRATIMA [address] [facility], [address] [place] [address] documented as of this encounter Visit Diagnoses Not on filedocumented in this encounter Additional Health Concerns Assessment Noted Time PHQ-9 Depression Total Score: 23 025 11:53 AM EDT A fall risk assessment has been complete d for the patient 09/12/2024 2:25 PM EDT documented as of this encounter Care Teams Res Counselor Relationship Specialty Start Date End Date Raquel Rayo MD [address] [place] [address] PCP - General 09/19/10 Courtney Mayfield MD [address] [facility], [address] [place] [address] Referring Physician Allergy and Immunology 02/12/24 documented as of this encounter
--- OUTSIDE RECORDS SUMMARY | 2024-10-02 00:30 | XMS_ITS | Encounter Summary ---
Author Organization [facility] Address [address] [place] [address] Care Team Providers Care Hospital Unit Coordinator Name Role Phone Raquel Rayo MD Primary Care Provider [phone] Reason for Visit * Reason Comments Medication Refill Encounter Details Date Type Department Care Team ([facility] st Contact Info) Description 03/19/2020 Refill [facility] Primary Care [place] [address] [place] [address] Bertram Peters, HADOOP ADMINISTRATOR - DRAPERY HEAD FORMER [address] [place] [address] Medication Refill Social History Tobacco [...] as of this encounter Visit Diagnoses Diagnosis Essential hypertension Unspecified essential hypertension documented in this encounter Additional Health Concerns Infection Onset Date Last Indicated Resolved Time COVID-19 (Rule Out) Comment:ED Admission with COVID compatible/suspicious symptoms 09/08/2020 09/08/2020 05/08/202 1 4:19 PM EDT documented as of this encounter Care Teams Hospital Unit Coordinator Relationship Specialty Start Date End Date Raquel Rayo MD PCP - General Family Medicine 11/21/19 documented as of this encounter
--- OUTSIDE RECORDS SUMMARY | 2024-10-02 00:30 | XMS_ITS | Encounter Summary ---
Author Organization [facility] Address [address] [place] [address] Care Team Providers Care Vice President [employer] Name Role Phone Raquel Rayo MD Primary Care Provider [phone] Reason for Visit * Reason Comments Medication Refill Encounter Details Date Type Department Care Team ([facility] st Contact Info) Description 08/02/2019 Refill [facility] Primary Care [place] [address] [place] [address] Bertram Peters, CLINICAL RESEARCH ASSOCIATE - PIPEFITTER [address] [place] [address] Medication Refill Social History Tobacco [...] Admission with COVID compatible/suspicious symptoms 09/08/2020 09/08/2020 1 4:19 PM EDT documented as of this encounter Care Teams Vice President [employer] Relationship Specialty Start Date End Date Raquel Rayo MD PCP - General Family Medicine 11/21/19 documented as of this encounter
--- OUTSIDE RECORDS SUMMARY | 2024-10-02 00:30 | XMS_ITS | Encounter Summary ---
Author Organization [facility] Address [address] [place] [address] Phone Care Team Providers Care Air Intelligence Officer Name Role Phone Raquel Rayo MD Primary Care Provider [phone] Courtney Mayfield MD Unavailable [phone] Encounter Details Date Type Department Care Team (Late st Contact Info) Description 02/05/2024 Scanned Document [facility] [address] [place] [address] Courtney Mayfield MD 960 [facility], [facility] [address] [place] [phone] Social History Tobacco Use Types Packs/Day Years [...] from your doctor or pharmacy? Sometimes 01/02/2024 [facility] Utilities Answer Date Recorded In the past 12 months has e electric, gas, oil, or water company threatened to shut off services in your home? Yes 01/02/2024 Social Connection and Isolat ion Panel [NHANES] Answer Date Recorded In a typical week, how many times do you talk on the phone with family, friends, or neighbors? Twice a week 01/02/2024 How often do you get togethe r with friends or relatives? Twice a week 01/02/2024 How often do you attend chur ch or muslim services? More than 4 times per year 01/02/2024 Do you belong to any clubs o r organizations such as sabianist groups, unions, fraternal or athletic groups, or school groups? Yes 01/02/2024 How often do you attend meet ings of the clubs or organizations you belong to? More than 4 times per year 01/02/2024 Are you , , di vorced, , never , or living with a partner? 01/02/2024 AUDIT-C Answer Date Recorded Q1: How often do you have a drink containing alcohol? Never 01/02/2024 Q2: How many drinks containi ng alcohol do you have on a typical day when you are drinking? Patient does not drink Q3: How often do you have si x or more drinks on one occasion? Never 01/02/2024 Overall Financial Resource Strain (CARDIA) Answe r Date Recorded How hard is it for you to pa y for the very basics like food, housing, medical care, and heating? Very hard 01/02/2024 PHQ-2 Answer Date Recorded Patient Health Questionnaire-2 Score 2 01/02/2024 [facility] - Occupational Stress Questionnaire Answer Date Recorded Do you feel stress - tense, restless, nervous, or anxious, or unable to sleep at night because your mind is troubled all the time - these days? Very much 01/02/2024 Exercise Vital Sign Answer Date Recorde d [...] the money to buy more. Often true 01/02/20 24 Within the past 12 months, t he food you bought just didn't last and you didn't have money to get more. Often true 01/02/2024 PRAPARE - Transportation Answer Date Re corded In the past 12 months, has l ack of transportation kept you from medical appointments or from getting medications? Yes 12/04 In the past 12 months, has l ack of transportation kept you from meetings, work, or from getting things needed for daily living? Yes 01/02/2024 Housing Stability Vital Sign Answer Mir e Recorded In the last 12 months, was t here a time when you were not able to pay the mortgage or rent on time? Yes 01/02/2024 In the past 12 months, how m any times have you moved where you were living? 0 01/02/2024 At any time in the past 12 m [facility], were you homeless or living in a jail (including now)? No 01/02/2024 Sex and Gender Information Value Date Recorded Sex Assigned at Not on file Legal Sex Male 11:51 PM EST Gender Identity Not on file Sexual Orientation Not on file documented as of this encounter Plan of Treatment Upcoming Encounters Date Type Department Care Team (Late st Contact Info) Description 11/07/2024 11:30 AM EDT Procedure Visit [facility] [address] [facility] [address] [place] [address] Jodie Matthews MD [address] [place] [address] 12/19/2024 2:45 PM EDT Office Visit [facility] [address] [facility] [address] [place] [phone] Courtney Mayfield MD [address] [facility], [facility] [address] [place] [address] 02/17/2025 11:30 AM EDT Telemedicine [facility] [address] [place] [address] Leonila Kern APRN-CNP [address] [facility], [facility] [address] [place] [address] documented as of this encounter Visit Diagnoses Not on filedocumented in this encounter Additional Health Concerns Assessment Noted Time PHQ-9 Depression Total Score: 14 024 3:34 AM EDT A fall risk assessment has been complete d for the patient 10/08/2023 10:34 AM EDT documented as of this encounter Care Teams Air Intelligence Officer Relationship Specialty Start Date End Date Raquel Rayo MD [address] [place] [address] [place] [address] PCP - General 09/19/10 Courtney Mayfield MD [address] [facility], [facility] [address] [place] [phone] Referring Physician Allergy and Immunology 02/12/24 documented as of this encounter
--- OUTSIDE RECORDS SUMMARY | 2024-10-02 00:30 | XMS_ITS | Encounter Summary ---
Author Organization [facility] Address [address] [place] [address] Phone Care Team Providers Care Real Estate Subagent Name Role Phone Raquel Rayo MD Primary Care Provider [phone] Courtney Mayfield MD Unavailable [phone] Encounter Details Date Type Department Care Team (Late st Contact Info) Description 09/19/2024 Scanned Document [facility] [address] [place] [address] Courtney Mayfield MD 960 [facility], [facility] [address] [place] [phone] Social History Tobacco Use Types Packs/Day Years [...] your doctor or pharmacy? Sometimes 01/02/2024 [facility] Utilities Answer Date Recorded In the past [...] often do you attend chur ch or gnosticism services? More than 4 times per year 07/24/2024 Do you belong to any clubs o r organizations such as congregational groups, unions, fraternal or athletic groups, or [...] Recorded Patient Health Questionnaire-2 Score 0 09/12/2024 [facility] - [...] any time in the past 12 m [facility], were you homeless or living in a [...] Description 11/07/2024 11:30 AM EDT Procedure Visit [facility] [address] [place] [phone] Jodie Matthews MD [address] [place] [address] 12/19/2024 2:45 PM EDT Office Visit [facility] [address] [facility] [address] [place] [address] Courtney Mayfield MD [address] [facility], [facility] [address] [place], [place] [phone] 02/17/2025 11:30 AM EDT [facility] [address] [place] [address] Leonila Kern APRN-PROCESS CHEMIST [address] ABDI [facility], [address] [place] [address] documented as of this encounter Visit Diagnoses Not on filedocumented in this encounter Additional Health Concerns Assessment Noted Time PHQ-9 Depression Total Score: 23 025 11:53 AM EDT A fall risk assessment has been complete d for the patient 09/12/2024 2:25 PM EDT documented as of this encounter Care Teams Real Estate Subagent Relationship Specialty Start Date End Date Raquel Rayo MD [address] [place] [address] [place] [address] PCP - General 09/19/10 Courtney Mayfield MD 0 [facility], [address] [place] [address] Referring Physician Allergy and Immunology 02/12/24 documented as of this encounter
--- OUTSIDE RECORDS SUMMARY | 2024-10-02 00:30 | XMS_ITS | Clinical Summary ---
Author Organization [facility] Address [address] [place] [address] Phone Care Team Providers Care Director Facilities Maintenance Name Role Phone Raquel Rayo MD Primary Care Provider [phone] Courtney Mayfield MD Unavailable [phone] Allergies Active Allergy Reactions Criticality Noted Date Comments Aspartame Headache 05/11/2024 Avocado Respiratory depression,Shortness of breath,Wheezing High 02/25/1980 Baclofen Unknown,Myalgia 01/17/2017 Muscle weakness Weakness, dizziness Other reaction(s): Other (See Comments) Muscle weakness Weakness, dizziness Candesartan Other 09/04/2023 Cefdinir Other 09/04/2023 Rash; early in the course. Chocolate Flavor Headache 06/02/2023 Ciprofloxacin Swelling,Rash Low 01/17/2017 Rash, tongue swelling [place] Headache 01/02/2023 Diazepam Other,Unknown,Shortn ess of breath High 05/09/2017 DEPRESSION Other reaction(s): Other (See Comments) DEPRESSION Diltiazem Other 09/04/2023 Grass Pollen Cough,Dermatitis,Run ny nose,Shortness of breath,Wheezing High 03/24/2023 Indomethacin Rash,Unknown,Hives Low 01/17/2017 Low BP hypotension Other reaction(s): Other (See Comments) Low BP hypotension Monosodium Glutamate Headache,Hives,Shor t ness of breath High 03/24/2023 Other Unknown 01/02/2023 Iv contrast dye Penicillins Hives,Rash,Unknown Low 01/17/2017 Rash; childhood age 5. Early in the course [place] Oil Unknown 01/02/2023 Propranolol Rash,Syncope Low 10/27/2018 Severe low bp and kidneys shutting down. hypotension Severe low bp and kidneys shutting down. hypotension Sulfa (Sulfonamide Antibiotics) Rash,Other Low 09/27/2017 HIVES; 1970s Medications amLODIPine (Norvasc) 5 mg tablet Take 1 tablet (5 mg) by mouth once daily. 08/02/19 20 Active cloNIDine (Catapres) 0.1 mg tablet Take 1 tablet (0.1 mg) by mouth 2 times a day. 06/17/19 20 Active fluticasone (Flonase) 50 mcg/actuation nasal spray Administer 2 sprays into each nostril once daily. 01/20/20 19 Active ondansetron (Zofran) 4 mg tablet Take 2 tablets (8 mg) by mouth every 8 hours if needed for nausea or vomiting. 07/04/19 21 Active potassium chloride CR 20 mEq ER tablet Take 1 tablet (20 mEq) by mouth 2 times a day. 04/13/20 19 Active pregabalin (Lyrica) 100 mg capsule Take 1 capsule (100 mg) by mouth twice a day. Active spironolactone (Aldactone) 50 mg tablet Take 1 tablet (50 mg) by mouth once daily. 02/12/20 23 Active methenamine hippurate (Hiprex) 1 gram tablet Take 1 tablet (1 g) by mouth 2 times a day. Active Gamunex-C 40 gram/400 mL (10 %) solution 09/06/19 23 Active oxygen (O2) gas therapy 3.5 L/min. 11/28/19 23 Active atorvastatin (Lipitor) 40 mg tablet Take 1 tablet (40 mg) by mouth once daily. Active budesonide-glyco pyr-formoterol (Breztri Aerosphere) 160-9-4.8 mcg/actuation HFA aerosol inhalerIndicatio ns:Asthma, severe persistent, poorly-controlle d, with acute exacerbation (Multi) Inhale 2 puffs 2 times a day. 10.7 g 11 06/25/19 24 Active meclizine (Antivert) 12.5 mg tabletIndication s:Dizziness Take 1 tablet (12.5 mg) by mouth if needed for dizziness. 30 tablet 3 12/07/19 24 Active omeprazole (PriLOSEC) [address] capsuleIndicatio ns:Gastro-esopha geal reflux disease without esophagitis TAKE 1 CAPSULE BY MOUTH EVERY 12 HOURS 180 capsule 3 12/09/19 24 Active albuterol 90 mcg/actuation inhaler every 4 hours. Activ e losartan (Cozaar) 100 mg tablet Take 1 tablet (100 mg) by mouth early in the morning.. 11/10/19 24 Active levalbuterol (Xopenex) 45 mcg/actuation inhalerIndicatio ns:Asthma with chronic obstructive pulmonary disease (COPD) (Multi) Inhale 1-2 puffs every 6 hours if needed for wheezing. 45 g 02/16/20 24 Active SUMAtriptan (Imitrex) 100 mg tabletIndication s:Chronic migraine without aura without status migrainosus, not intractable Take 1 tablet (100 mg) by mouth 1 time if needed for migraine for up to 108 doses. No more than 2 triptan medications in 24 hours. 27 tablet 3 04/07/20 24 Active SUMAtriptan (Imitrex) 6 mg/0.5 mL injectionIndicat ions:Chronic migraine without aura without status migrainosus, not intractable Inject 0.5 mL (6 mg) under the skin if needed for migraine for up to 18 doses. No more than 2 triptan medications in 24 hours. 3 mL 3 04/07/20 24 Active SUMAtriptan (Imitrex) 6 mg/0.5 mL injection Inject 1 pen (0.5 mL) under the skin once if needed for migraine. May repeat dose after 1 hour if symptoms persist or return. Do not exceed max of 6 mg per dose or 12 mg per 24 hours. 3 mL 6 5 10:55 AM EDT 01/13/20 24 Active venlafaxine XR (Effexor-XR) 150 mg 24 hr capsuleIndicatio ns:Chronic migraine without aura without status migrainosus, not intractable TAKE 2 CAPSULES BY MOUTH ONCE DAILY WITH FOOD 180 capsule 3 05/13/19 25 Active topiramate (Topamax) 200 mg tabletIndication s:Chronic migraine without aura without status migrainosus, not intractable Take 1 tablet (200 mg) by mouth 2 times a day. 1 tab at dinner and 1 tab at bedtime 180 tablet 3 06/02/19 25 Active topiramate (Topamax) 100 mg tabletIndication s:Chronic migraine without aura without status migrainosus, not intractable Take 1 tablet (100 mg) by mouth once daily. With 50mg 90 tablet 3 06/02/19 25 Active topiramate (Topamax) 50 mg tabletIndication s:Chronic migraine without aura without status migrainosus, not intractable TAKE 1 TABLET BY MOUTH IN THE MORNING, 1 IN THE EVENING AND 1 AT BEDTIME WITH 200MG TABLET 270 tablet 3 06/02/19 25 Active galcanezumab (Emgality Pen) 120 mg/mL auto-injectorInd ications:Chronic migraine without aura, intractable, with status migrainosus Inject 120 mg (1 pen) under the skin every 28 (twenty-eight) days. 1 each 6 5 3:07 PM EDT 06/07/19 25 Active celecoxib (CeleBREX) 200 mg capsuleIndicatio ns:Chronic migraine without aura without status migrainosus, not intractable TAKE 2 CAPSULES BY MOUTH TWICE A DAY 360 capsule 1 08/11/19 25 Active verapamil (Calan) 120 mg tabletIndication s:Chronic migraine without aura, intractable, with status migrainosus TAKE 1 TABLET BY MOUTH ONCE DAILY AT BEDTIME. 90 tablet 3 08/16/19 25 Active amitriptyline (Elavil) 100 mg tabletIndication s:Chronic migraine without aura without status migrainosus, not intractable TAKE 1 TABLET BY MOUTH EVERYDAY AT BEDTIME 90 tablet 1 08/25/19 25 Active oxyCODONE (Oxaydo) 5 mg immediate release tablet Take 1 tablet (5 mg) by mouth if needed for severe pain (7 - 10). Active azithromycin (Zithromax) 500 mg tabletIndication s:Asthma with chronic obstructive pulmonary disease (COPD) (Multi) Take 1 pill Thursday, Thursday and Thursday 12 tablet 5 09/15/19 25 Active tezepelumab-ekko (Tezspire) SubQ Pen InjectorIndicati ons:Asthma with chronic obstructive pulmonary disease (COPD) (Multi) Inject 1 pen (210 mg) under the skin every 28 (twenty-eight) days. 1.91 mL 5 5 3:07 PM EDT 09/23/19 25 025 Active metoprolol succinate XL (Toprol-XL) 25 mg 24 hr tablet Daily 02/23/20 20 025 Discontinu ed(Therapy completed) azithromycin (Zithromax) 500 mg tabletIndication s:Asthma with chronic obstructive pulmonary disease (COPD) (Multi) Take 1 pill Thursday, Thursday and Thursday 12 tablet 5 03/08/20 24 025 Discontinu ed(Reorder ) tezepelumab-ekko (Tezspire) SubQ Pen InjectorIndicati ons:Asthma with chronic obstructive pulmonary disease (COPD) (Multi) Inject 1 pen (210 mg) under the skin every 28 (twenty-eight) days. 1.91 mL 5 5 4:21 PM EDT 04/05/20 24 025 Discontinu ed(Reorder ) ketorolac (Toradol) 10 mg tabletIndication s:Intractable chronic migraine without aura and with status migrainosus Take 1 tablet (10 mg) by mouth every 6 hours for 5 days. 20 tablet 09/13/19 25 025 Hospital, Clinic, or Other Facility Administered Medication Ordered Dose Route Frequency Start Date End Date Status ketorolac (Toradol) injection 60 mgIndications:Intractable chronic migraine without aura and with status migrainosus 60 mg IM Once 09/12/2024 09/12/2024 Ended Active Problems Problem Noted Date Diagnosed Date Major depressive disorder, recurrent, mild 12/06 Chronic migraine without aur a, intractable, with status migrainosus 12/07/2023 Assessment & Plan (06/02/2024 2:18 PM EST): Orders: ketorolac (Toradol) 10 mg tablet; Take 1 tablet (10 mg) by mouth every 6 hours for 5 days. ketorolac (Toradol) injection 60 mg Acute maxillary sinusitis 10/08/2023 KRISTA (acute kidney injury) 10/08/2023 Amnesia 10/08/2023 Anxiety 10/08/2023 Asterixis 10/08/2023 BPH with urinary obstruction 10/08/2023 Bursitis of hip 10/08/2023 Arrhythmia 10/08/2023 Assessment & Plan (12/06/2023 8:24 PM EDT): New onset arrhythmia. Etiology is unclear. He will make an appointment with his PCP dillon Closed head injury 10/08/2023 Contusion of hip, left 10/08/2023 Contusion of left upper arm 10/08/2023 Costochondritis 10/08/2023 Daytime somnolence 10/08/2023 Decreased muscle tone 10/08/2023 Disease due to severe acute respiratory syndrome coronavirus 2 (SARS-CoV-2) 10/08/2023 Elevated blood pressure read ing without diagnosis of hypertension 10/08/2023 History of severe acute resp iratory syndrome coronavirus 2 (SARS-CoV-2) disease 10/08/2023 History of transient ischemic attack 10/08/2023 Incomplete emptying of bladder 10/08/2023 Hearing loss 10/08/2023 Interstitial lung disease (Multi) 10/08/2023 Leukocytosis 10/08/2023 Male hypogonadism 10/08/2023 Migraines 10/08/2023 Assessment & Plan (09/14/2024 10:20 AM EDT): Orders: Follow Up In Neurology; Future ketorolac (Toradol) injection 60 mg ketorolac (Toradol) 10 mg tablet; Take 1 tablet (10 mg) by mouth every 6 hours for 5 days. Muscle weakness 10/08/2023 Nausea 10/08/2023 Overweight with body mass index (BMI) 25.0-29.9 10/08/2023 Paresthesia 10/08/2023 Recurrent falls 10/08/2023 Recurrent UTI 10/08/2023 Rising PSA level 10/08/2023 Renal tubular acidosis 10/08/2023 Subjective tinnitus 10/08/2023 Syncope 10/08/2023 Vitamin D deficiency 10/08/2023 Xerostomia 10/08/2023 Weakness of foot 10/08/2023 Acute febrile illness 10/08/2023 Bilateral primary osteoarthritis of knee 024 Post concussion syndrome 10/08/2023 Fatigue 04/08/2023 Overview (04/12/2023): Etiology unclear. Multifactorial Assessment & Plan (04/12/2023 6:43 PM EST): I ordered basic lab evaluation for fatigue. I explained to patient that I do not typically treat fatigue and he should follow up for evaluation with his primary care physician. I am not sure why she referred him to his outside specialist for treatment of fatigue. It is acute and has been about 2-3 weeks. 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 Assessment & Plan (08/17/2024 11:21 AM EDT): 08/2024: brain fog, fatigue, poor sleep, shortness of breath, voice changes, anxiety and depression, musculoskeletal pain, deconditioning, taste changes -CBT-i Ecg Technician smartphone osorio by the [place] -continue close follow up with your specialists and their recommendations -consider virtual Occupational Therapy for Long COVID related fatigue and brain fog -consider restarting Physical Therapy 02/2023: brain fog, fatigue, poor sleep, shortness of breath, voice changes, anxiety and depression, musculoskeletal pain, deconditioning, taste changes -re-ordered PT, OT, and PLUG SORTER for deconditioning and vocal cord dysfunction. Printed orders so patient can utilize local providers -look into insurance company provided transportation to medical appointments -referred to sleep medicine to optimize sleep apnea treatment as I suspect this is contributing to current symptoms -continue close follow-up with your specialists and their recommendations -additional recommendations provided under Patient Education section 11/2022: Cognitive and memory changes, fatigue, insomnia, shortness of breath, cough, anxiety, depression, musculoskeletal pain, weakness -continue close follow-up with your specialists and their recommendations -follow-up on referral to NeuroPsychiatrist Dr. Zimmerman after you review your Neuropsychology test results with Dr. Good -follow-up on referral to PLUG SORTER to address vocal cord dysfunction noted by ENT -referral to Physical Therapy and Occupational Therapy specifically for Long- COVID related symptoms including brain fog, fatigue, weakness management. 08/2022: Cognitive and memory changes, fatigue, insomnia, shortness of breath, cough, anxiety, depression, musculoskeletal pain, weakness -proceed with aquatherapy at [facility] as ordered by your orthopedic surgeon, after completion and clearance by them I also strongly recommend occupational therapy and physical therapy -referral to Neuropsychiatrist Dr. Zimmerman for anxiety, depression, insomnia -Neuropsychiatry evaluation is scheduled in October -continue close follow-up with your therapist -continue close follow-up with your specialists and their recommendations, including Pulmonary, Cardiology, Immunology, and pain Management 05/2022: Cognitive and memory changes, insomnia, shortness of breath, cough, anxiety, depression, musculoskeletal pain, weakness -follow-up with cardiology, pulmonary, immunology, pain management, and ortho as scheduled -I encourage Physical and Occupational Therapy once cleared by Ortho -follow-up on your PCP's referral to Psychology for Therapy at [facility], please let me know if you would like a referral to provider .neuropsych .brain .sleep 09/2021: shortness of breath, fatigue, brain fog, depression, insomnia -follow up with cardiology, pulmonary, and immunology as scheduled .fog -ACCESS referral -schedule with ENT to discuss option of Inspire therapy to treat your sleep apnea .sleep .brain 05/2021: Fatigue, brain fog, shortness of breath, cough, depression, dysphagia, sleep apnea -updated blood work, increase K supplement to BID, increase iron tabs to BID -follow up with echo and tilt table testing ordered by neurology -referral to ENT for dysphagia and for consideration of inspire therapy for sleep apnea -consider COVID-19 neuropsychology referral if no improvement with ANN and depression -follow with recommendation from immunology to get second COVID vaccine Assessment & Plan (02/16/2023 11:08 AM EDT): Current Assessment & Plan: brain fog, fatigue, poor sleep, shortness of breath, voice changes, anxiety and depression, musculoskeletal pain, deconditioning, taste changes -re-ordered PT, OT, and PLUG SORTER for deconditioning and vocal cord dysfunction. Printed orders so patient can utilize local providers -look into insurance company provided transportation to medical appointments -referred to sleep medicine to optimize sleep apnea treatment as I suspect this is contributing to current symptoms -continue close follow-up with your specialists and their recommendations -additional recommendations provided under Patient Education section Historical Assessment & Plan: 11/2022: Cognitive and memory changes, fatigue, insomnia, shortness of breath, cough, anxiety, depression, musculoskeletal pain, weakness -continue close follow-up with your specialists and their recommendations -follow-up on referral to NeuroPsychiatrist Dr. Zimmerman after you review your Neuropsychology test results with Dr. Good -follow-up on referral to PLUG SORTER to address vocal cord dysfunction noted by ENT -referral to Physical Therapy and Occupational Therapy specifically for Long- COVID related symptoms including brain fog, fatigue, weakness management. 08/2022: Cognitive and memory changes, fatigue, insomnia, shortness of breath, cough, anxiety, depression, musculoskeletal pain, weakness -proceed with aquatherapy at [facility] as ordered by your orthopedic surgeon, after completion and clearance by them I also strongly recommend occupational therapy and physical therapy -referral to Neuropsychiatrist Dr. Zimmerman for anxiety, depression, insomnia -Neuropsychiatry evaluation is scheduled in October -continue close follow-up with your therapist -continue close follow-up with your specialists and their recommendations, including Pulmonary, Cardiology, Immunology, and pain Management 05/2022: Cognitive and memory changes, insomnia, shortness of breath, cough, anxiety, depression, musculoskeletal pain, weakness -follow-up with cardiology, pulmonary, immunology, pain management, and ortho as scheduled -I encourage Physical and Occupational Therapy once cleared by Ortho -follow-up on your PCP's referral to Psychology for Therapy at [facility], please let me know if you would like a referral to provider .neuropsych .brain .sleep 09/2021: shortness of breath, fatigue, brain fog, depression, insomnia -follow up with cardiology, pulmonary, and immunology as scheduled .fog -ACCESS referral -schedule with ENT to discuss option of Inspire therapy to treat your sleep apnea .sleep .brain 05/2021: Fatigue, brain fog, shortness of breath, cough, depression, dysphagia, sleep apnea -updated blood work, increase K supplement to BID, increase iron tabs to BID -follow up with echo and tilt table testing ordered by neurology -referral to ENT for dysphagia and for consideration of inspire therapy for sleep apnea -consider COVID-19 neuropsychology referral if no improvement with ANN and depression -follow with recommendation from immunology to get second COVID vaccine Abnormal CT of the chest 01/02/2023 Anemia 01/02/2023 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 He is doing well but is having some issues with access. I would like to try to find a company that can do training for subcu infusions. Assessment & Plan (09/14/2024 3:50 PM EDT): Currently on Gamunex-C at [facility]. He is doing well but is having some issues with access. I would like to try to find a company that can do training for subcu infusions. His last IgG level was normal. Assessment & Plan (06/14/2024 5:43 PM EST): He has problems with Gamunex-C due to access issues. He prefers not to deal with [employer]. He will continue IV until we can switch to subcu when available and once I find an infusion center. Assessment & Plan (03/10/2024 2:01 PM EST): Patient is currently doing well from an infection standpoint. He will continue his Gamunex at [place] monthly. His last IgG level was adequate Assessment & Plan (02/17/2024 4:29 PM EDT): Last IgG level was good. Decreased in infections with immunoglobulin infusions. Assessment & Plan (12/06/2023 8:21 PM EDT): Continue Gamunex-C at [facility]. He recently had a flare up and it was most likely secondary to illness. He will continue infusions at [place] Assessment & Plan (04/12/2023 6:42 PM EST): He will continue his current treatment. He has not had recurrent infections Assessment & Plan (02/09/2023 1:42 PM EDT): Patient is doing very well on immunoglobulin therapy. His last IgG level was around thousand which is adequate. He has had a dramatic decrease in infections. He is tolerating the infusions very well. He is currently having some financial issues due to the cost of the infusions. He states he has applied for bill forgiveness through both [facility] and [facility]. He is not having any adverse side effects and will continue at the current dose. He is currently receiving 40 g IV every 4 weeks. He is premedicated with Tylenol 650, Benadryl 50 mg and dexamethasone 4 mg. He also has pre and post normal saline at 250 cc. Bilateral sensorineural hearing loss 01/02/2023 Cognitive dysfunction 01/02/2023 Cardiac enzymes elevated 01/02/2023 Dizziness 01/02/2023 Assessment & Plan (09/14/2024 10:20 AM EDT): Orders: Follow Up In Neurology; Future Insomnia 01/02/2023 Obstructive sleep apnea 01/02/2023 Polyneuropathy 01/02/2023 Dyspnea on exertion 01/02/2023 Musculoskeletal pain 01/02/2023 Chronic sinusitis 01/02/2023 Reduced libido 11/11/2022 Iron deficiency anemia due to chronic blood loss 08/13/2022 Allergic rhinitis 07/01/2022 Decreased cortisol level 05/19/2022 Fall 03/31/2022 Pernicious anemia 10/11/2021 Dyslipidemia 10/31/2019 Mixed action and resting tremor 09/15/2019 Cerebrovascular disease 08/13/2019 Chronic migraine without aur a without status migrainosus, not intractable 08/13/2019 Overview (12/07/2023): Controlled substances prescribed by other providers. Headache timeline for Brandon Bagley, 63 y.o. male: (Last updated 12/07/2023 BY Jessica Moore, TRANSITIONAL STUDIES INSTRUCTOR-MUFF WINDER HEADACHE HISTORY: 3-4 migraines per week Botox & Aimovig help to decrease severity. Mild migraines start on the right side of the head is constant, 2/10. Occipital migraines: Triggers are flashing lights & loud noises, & weather changes. Occipital pain feels like someone is pushing a crowbar through my head Associated right arm weakness, nausea, & light & noise sensitivity Generally, the migraine headaches last from 5-6 hours to 3-4 days. The patient rates his most severe headaches as are on a scale from 1 to 10. The headaches are usually preceded by an aura consisting of blurry vision and dizziness . Associated neurologic symptoms which are present include: depression, dizziness, muscle weakness, numbness of extremities, speech difficulties, vision problems, and vomiting in the assurance manager. Other associated symptoms include: abdominal pain, appetite decrease, dizziness, fatigue, irritability, nasal congestion, nausea, neck stiffness, photophobia, rhinorrhea, and sneezing. Also suffering Covid long-haul symptoms that he reports similar to his migraine symptoms. CURRENT TREATMENTS: Botox every 90 days Aimovig monthly Elavil Verapamil Sumatriptan is somewhat effective, working 50% of the time, but is not effective to completely abort severe migraines. FAILED TREATMENTS/ REASON: Rizatriptan has not been taking the edge off anymore (patient reports that he stopped taking 11/2023) [facility] trialed in 2019 (2020- not treat completely) Assessment & Plan (09/14/2024 10:20 AM EDT): Orders: Follow Up In Neurology; Future Assessment & Plan (07/10/2024 3:06 PM EDT): Orders: ketorolac (Toradol) injection 60 mg ketorolac (Toradol) 10 mg tablet; Take 1 tablet (10 mg) by mouth every 6 hours for 5 days. Assessment & Plan (06/02/2024 2:18 PM EST): Orders: topiramate (Topamax) 200 mg tablet; Take 1 tablet (200 mg) by mouth 2 times a day. 1 tab at dinner and 1 tab at bedtime topiramate (Topamax) 100 mg tablet; Take 1 tablet (100 mg) by mouth once daily. With 50mg topiramate (Topamax) 50 mg tablet; TAKE 1 TABLET BY MOUTH IN THE MORNING, 1 IN THE EVENING AND 1 AT BEDTIME WITH 200MG TABLET Assessment & Plan (04/10/2024 10:13 PM EST): Orders: SUMAtriptan (Imitrex) 100 mg tablet; Take 1 tablet (100 mg) by mouth 1 time if needed for migraine for up to 108 doses. No more than 2 triptan medications in 24 hours. SUMAtriptan (Imitrex) 6 mg/0.5 mL injection; Inject 0.5 mL (6 mg) under the skin if needed for migraine for up to 18 doses. No more than 2 triptan medications in 24 hours. ketorolac (Toradol) injection 60 mg ketorolac (Toradol) 10 mg tablet; Take 1 tablet (10 mg) by mouth every 6 hours for 5 days. Assessment & Plan (12/07/2023 6:29 PM EDT): Patient had 15 headache days a month or more, 8 meeting migraine criteria. They had tried and failed 3 preventative and 3 abortives. Presently their headaches are well controlled because of Botox Therapy. It has reduced the headaches by 50%. Occipital migraines: Triggers are flashing lights & loud noises, & weather changes. Occipital pain feels like someone is pushing a crowbar through my head Associated right arm weakness, nausea, & light & noise sensitivity Generally, the migraine headaches last from 5-6 hours to 3-4 days. The patient rates his most severe headaches as are on a scale from 1 to 10. The headaches are usually preceded by an aura consisting of blurry vision and dizziness . Associated neurologic symptoms which are present include: depression, dizziness, muscle weakness, numbness of extremities, speech difficulties, vision problems, and vomiting in the assurance manager. Other associated symptoms include: abdominal pain, appetite decrease, dizziness, fatigue, irritability, nasal congestion, nausea, neck stiffness, photophobia, rhinorrhea, and sneezing. Also suffering Covid long-haul symptoms that he reports similar to his migraine symptoms. CURRENT TREATMENTS: Botox every 90 days Aimovig monthly Elavil FAILED TREATMENTS/ REASON: Rizatriptan has not been taking the edge off anymore (patient reports that he stopped taking 11/2023) [facility] (stopped in 2020 due to ineffectiveness). Will start Emgality to determine if more efficacious than Aimovig for prophylaxis. *Loading dose of Emgality (120 mg x 2 pens) self-administered in-clinic today, 12/07/23. Also discussed Ubrelvy as an alternative abortive migraine treatment. We will first determine efficacy of the Emgality injections. Chronic back pain 08/10/2019 Overview (01/02/2023): Last Assessment & Plan: Condition: stable Take pain medication as prescribed. Practice non- pharmacological pain reduction techniques/interventions such as, deep breathing exercises, massage, gel packs, if indicated to be safe by PCP. Monitor for worsening of back pain in combination with other signs and symptoms of worsening disease and see PCP as soon as possible. Follow up in: three months Major depressive disorder 08/10/2019 Overview (01/02/2023): Last Assessment & Plan: Condition: stable Last mental health visit July 2019 Take medications as ordered by Provider; notify Provider if you cannot take medications as ordered or are having difficulties or side-effects from medications (do not stop medications without notifying Provider). If symptoms worsen or do not improve/stabilize, notify health care provider right away. If thoughts of harming self or others notify health care provider immediately &/or seek urgent/emergent care including calling Suicide Hotline ( ) or 911. Follow up in three months with PCP Assessment & Plan (04/10/2024 10:13 PM EST): Assessment & Plan (12/07/2023 4:56 PM EDT): Endorses current depressive state. Denies suicidal ideation, suicidal plan. Affect normal, makes good eye contact. His insurance helped to get him into contact with a new therapist, going every 2 weeks. States that he feels it has been beneficial. Patient Health Questionnaire-9 Score: 18 (12/07/2023 2:37 PM) Over the past 2 weeks, how often have you been bothered by any of the following problems? Little interest or pleasure in doing things: Nearly every day Feeling down, depressed, or hopeless: Several days Trouble falling or staying asleep, or sleeping too much: More than half the days Feeling tired or having little energy: Nearly every day Poor appetite or overeating: Nearly every day Feeling bad about yourself - or that you are a failure or have let yourself or your family down: Not at all Trouble concentrating on things, such as reading the newspaper or watching television: Nearly every day Moving or speaking so slowly that other people could have noticed? Or the opposite - being so fidgety or restless that you have been moving around a lot more than usual.: Nearly every day Thoughts that you would be better off or hurting yourself in some way: Not at all Patient Health Questionnaire-9 Score: 18 Patient is experiencing minimal to mild depressive symptoms. Patient's PHQ-9 Patient Health Questionnaire-9 Score: 18 as of today. Review with patient: Supportive Counseling Call if condition deteriorates Antidepressant options Non-pharmacological recommendations for MDD Approaches to treat depression and improve well-being Exercise regularly: 30 minutes/day 3-5 days/week as determined appropriate by physician Improve sleep hygiene with a goal of 7-8 hours of sleep Practice mindfulness Focus on healthy food choices such as fresh fruits/vegetables and lean proteins. Avoid processed foods. Psychotherapy May be used as initial treatment modality for patients with mild, moderate, or severe MDD Evidence-based medicine suggest the Cognitive Behavioral Therapy or Interpersonal Therapy are most effective when treating depression Cognitive behavioral therapy Focuses on a person's thoughts and beliefs, and how they influence a person's mood and actions Aims to change a person's thinking to be more adaptive and healthy Helps a person focus on their current problems and how to solve them Can be applied and adapted to treat many specific mental disorders Interpersonal therapy Based on the idea that improving communication patterns and the ways people relate to others will effectively treat depression Helps identify how a person interacts with other people Guides a person to change problem-causing behaviors For patients whose employer offers an Employee Assistance Program, refer to those programs for work-related stress Schedule a follow up visit to repeat the PHQ-9 and continue to monitor symptoms. Edema 08/10/2019 Overview (01/02/2023): Last Assessment & Plan: Condition: stable Follow up in: three months GERD without esophagitis 08/10/2019 Overview (01/02/2023): Last Assessment & Plan: Condition: stable Reviewed use of antacid medication and/or diet modifications of decreasing caffeine, spicy foods, chocolate, and avoiding alcohol, tobacco, NSAIDs, and reducing citrus acids. Follow up in: three months Assessment & Plan (02/16/2024 10:40 AM EDT): He is complaining of increased heartburn despite taking omeprazole. I would like him to increase omeprazole to twice a day while he is taking prednisone. Hemiparesis affecting left s refugio as late effect of stroke (Multi) 08/10/2019 Overview (01/02/2023): Last Assessment & Plan: Condition: stable Follow up in: three months Hypokalemia 08/10/2019 Overview (01/02/2023): Last Assessment & Plan: Condition: stable Follow up in: three months Assessment & Plan (09/14/2024 3:50 PM EDT): He recently received potassium in the ED following an IVIg infusion. I will recheck his potassium today. Mixed hyperlipidemia 08/10/2019 Overview (01/02/2023): Last Assessment & Plan: Condition: stable Follow up in: three months Essential tremor 08/10/2019 Overview (01/02/2023): Last Assessment & Plan: Condition: stable Follow up in: three months Oropharyngeal dysphagia 06/06/2019 Pneumonia of right upper lobe due to infectious organism 05/07/2019 Bilateral carpal tunnel syndrome 04/14/2019 Bilateral occipital neuralgia 03/14/2019 Asthma with chronic obstruct samanta pulmonary disease (COPD) (Multi) 01/18/2019 Overview (04/12/2023): Severe persistent. On Fasenra. Sees Dr. Betts Last Assessment & Plan: Condition: stable Reviewed trigger avoidance and reviewed proper use of inhalers and rescue medications. Reviewed concerning signs/symptoms and ER precautions. Follow up in: three months Assessment & Plan (06/14/2024 5:46 PM EST): ACT is 8. Exam shows decreased air movement throughhout. Complete prednisone taper. I will reach out to Dr. Betts for his recommendation on oxygen and whether or not valve surgery would benefit patient. Restart budesonide nebulizer twice a day and Breztri twice a day. Continue Xopenex inhaler or MDI every 4 hours as needed Continue omeprazole. Continue Tezspire. Assessment & Plan (03/10/2024 2:03 PM EST): ACT is 7. He C/O persistent SOB despite Tezspire and unsure if it is helpful. He feels Dupixent, which he was on prior, was ineffective and was happy with Fasenra every 8 weeks. IO PFT shows vocal cord irritability He will continue medications and start Zithromax 500 mg 3 times a week. I will also add Ohtuvayre if I am able to get coverage. He should continue followup with Dr. Betts for management of his COPD. I suspect that a lot of his SOB is due to his underlying post COVID lung disease. In addition, I would like him to discuss with Dr. Betts if any options for COPD treatment might help him. Otherwise, he will require daily OCS. Assessment & Plan (02/17/2024 4:36 PM EDT): ACT is 8. He is having an exacerbation that has been treated by Dr. Rayo. Unfortunately the prednisone is only partially helping. I believe he needs an increased dose. He will continue Tezspire. He is improved with Tezspire overall but still develops symptoms IO PFT is essentially unchanged. He has technical difficulty Continue Xopenex inhaler or MDI every 4 hours as needed Increase omeprazole to twice a day while you are taking prednisone. I believe he may be having an exacerbation of his asthma due to infection. I have started him a course of doxycycline. Assessment & Plan (12/06/2023 8:13 PM EDT): ACT is 9. His asthma symptoms persist despite max pharmacological therapy. Currently seeing pulmonary medicine. Treatment by Dr. Betts. Patient has a follow up scheduled next month. Assessment & Plan (04/12/2023 6:41 PM EST): ACT is 6. This is his baseline. He continues to have chronic symptoms, but he is not currently having an exacerbation Assessment & Plan (02/09/2023 1:39 PM EDT): Overall he is having exacerbation of his asthma. He is currently being evaluated for interstitial lung disease. He is greatly improved on Fasenra, but he continues to have problems. I would like to await his CT scan of his chest. If it is unchanged then I will speak with Dr. Betts about possibly starting has Tezspire instead of Fasenra. In the meanwhile, he will continue his current treatment as outlined by Dr. Betts. Essential hypertension 01/18/2019 Overview (01/02/2023): Last Assessment & Plan: Condition: stable Discussed target blood pressure. Continue medication as prescribed from PCP/specialist. Take medications at the same time every day. Lifestyle modification advised: DASH diet, reduce stress/anxiety, discussed health weight management, activity as tolerated or advised from PCP, try to avoid alcohol and nicotine. Follow up in: three months Lymphadenopathy, inguinal 12/13/2018 Neurogenic bladder 12/10/2018 Overview (01/02/2023): Last Assessment & Plan: Condition: stable Follow up in: three months Urinary retention 12/10/2018 Overview (01/02/2023): With urinary tract infection Last Assessment & Plan: Condition: stable Follow up in: three months Neuropathy 10/28/2018 Overview (01/02/2023): Last Assessment & Plan: Condition: stable Follow up in: three months Hypomagnesemia 05/25/2018 Injury of kidney 04/26/2018 Enlarged lymph nodes 11/27/2017 Tachycardia 11/03/2017 Deep venous thrombosis (DVT) of peroneal vein (M ulti) 11/07/2016 Secondary diabetes mellitus (Multi) 07/26/2016 Hyperglycemia 07/25/2016 Simple obesity 07/18/2016 Thyrotoxicosis with or without goiter 07/18/2016 Chest pain on breathing 12/19/2015 Cough 06/09/2014 Tin of macula 02/15/2014 Resolved Problems Problem Noted Date Diagnosed Date Resolved Date Thrush 10/08/2023 02/16/2024 Assessment & Plan (12/06/2023 8:22 PM EDT): Severe thrust on PE. Start troches 5 times a day for 10 days. Epistaxis 10/08/2023 02/16/2024 Alpha-streptococcal sepsis (Multi) 01/02/2023 04/12/2023 Asthma, severe persistent, p oorly-controlled, with acute exacerbation (Multi) 01/02/2023 09/06/19 Pneumonia of right middle lo be due to methicillin susceptible Staphylococcus aureus (MSSA) ([facility]) 04/01/2019 04/08/2023 Upper respiratory tract infe ction due to influenza 06/11/2015 09/13/2024 Encounters Date Type Department Care Team Description 09/27/[address] [facility] [address] [place] [address] Courtney Mayfield MD 09/22/[address] [facility] [address] [place] [address] Courtney Mayfield MD Asthma with chronic obstructive pulmonary disease (COPD) ([facility]) 09/22/2024 Specialty [facility]acy [facility] [address] [place] [address] Refill Coordination Outreach (28 day recurrence) - tezepelumab-ekko (Tezspire) for Pulmonology Core, Refill Coordination Outreach (28 day recurrence) - galcanezumab-gnlm (Emgality Pen) for Migraine Core, Refill Coordination Outreach (30 day recurrence) - sumatriptan succinate (Imitrex) for Migraine Non-Core 09/21/[address] [facility] [address] [place] [address] Courtney Mayfield MD 09/20/[address] [facility] [address] [place] [address] Courtney Mayfield MD 09/20/[address] [facility] [address] [place] [address] Courtney Mayfield MD 09/19/[address] [facility] [address] [place] [address] Courtney Mayfield MD 09/19/[address] [facility] [address] [place] [address] Courtney Mayfield MD 09/19/[address] [facility] [address] [place] [address] Courtney Mayfield MD 09/15/[address] [facility] [address] [place] [address] Courtney Mayfield MD 09/13/2024 12:15 PM EDT Office Visit [facility] [address] [place] [address] Courtney Mayfield MD Hypokalemia (Primary Dx); Asthma with chronic obstructive pulmonary disease (COPD) (Multi) 09/12/2024 2:00 PM EDT Office Visit [facility] [address] [facility] [address] [place] [phone] Jessica Moore, TRANSITIONAL STUDIES INSTRUCTOR-MUFF WINDER Chronic migraine without aura without status migrainosus, not intractable (Primary Dx); Intractable chronic migraine without aura and with status migrainosus; Dizziness 09/12/2024 Travel 09/06/[address] [facility] [address] [facility] [address] [place] [address] Courtney Mayfield MD 09/05/[address] [facility] [address] [place] [address] Courtney Mayfield MD 09/05/[address] [facility] [address] [facility] [address] [place] [address] Courtney Mayfield MD 09/05/[address] [facility] [address] [facility] [address] [place] [address] Courtney Mayfield MD 08/31/2024 Specialty Pharmacy [facility] [address] [place] [phone] Carlos Correa, PharmD Refill Coordination Outreach (28 day recurrence) - tezepelumab-ekko (Tezspire) for Pulmonology Core, Refill Coordination Outreach (28 day recurrence) - galcanezumab-gnlm (Emgality Pen) for Migraine Core, Pharmacist Reassessment - galcanezumab-gnlm (Emgality Pen) for Migraine Core 08/23/[address] [facility] [address] [facility] [address] [place] [address] Courtney Mayfield MD 08/23/[address] [facility] [address] [place] [address] Courtney Mayfield MD 08/22/[address] [facility] [address] [facility] [address] [place] [address] Courtney Mayfield MD Other cough (Primary Dx) 08/21/2024 Refill [facility] [address] [facility] [address] [place] [phone] Jodie Matthews MD Chronic migraine without aura without status migrainosus, not intractable 08/17/2024 10:30 AM EDT Telemedicine COVID Recovery [facility] [address] [place] [address] Leonila Kern APRN-PRATIMA 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) 08/17/2024 Travel 08/12/2024 Refill [facility] [address] [place] [address] Jodie Matthews MD Chronic migraine without aura, intractable, with status migrainosus 08/11/2024 Refill [facility] [address] [place] [address] Jodie Matthews MD Chronic migraine without aura without status migrainosus, not intractable 08/10/2024 11:20 AM EDT Procedure Visit [facility] [address] [place] [address] Jodie Matthews MD Intractable chronic migraine without aura and with status migrainosus 08/09/2024 Refill [facility] [address] [place] [address] Jodie Matthews MD Chronic migraine without aura without status migrainosus, not intractable 08/03/2024 Documentation [facility] Recovery [facility] [address] [place] [address] Leonila Kern APRN-PRATIMA 07/27/2024 Specialty Pharmacy [facility] [place] [phone] Jackeline Pham Refill Coordination Outreach (23 day recurrence) - sumatriptan succinate (Imitrex) for Migraine Non-Core, Refill Coordination Outreach (28 day recurrence) - galcanezumab-gnlm (Emgality Pen) for Migraine Core 07/25/2024 11:45 AM EDT Office Visit [facility] [address] [place] [phone] Mina Betts MD MPH ILD (interstitial lung disease) (Multi) (Primary Dx) 07/24/2024 Travel 07/22/2024 Telephone [facility] [address] [place] [address] Shaheen Tuttle, FINANCIAL AID MANAGER Forms/questionnaire s 07/06/2024 3:00 PM EST Procedure Visit [facility] [address] [place] [phone] Jessica Moore, TRANSITIONAL STUDIES INSTRUCTOR-MUFF WINDER Chronic migraine without aura without status migrainosus, not intractable (Primary Dx) 07/06/2024 Travel 07/05/[address] [facility] [address] [place] [address] Courtney Mayfield MD 07/04/2024 Specialty Pharmacy [facility] [address] [place] [phone] Jackeline Pham Refill Coordination Outreach (23 day recurrence) - sumatriptan succinate (Imitrex) for Migraine Non-Core from Last 3 Months Immunizations Immunization Administration Dates Next Due Flu vaccine (IIV4), preserva tive free *Check age/dose* 04/14/2022,01/16/2020,03/04/2019,02/05 Influenza, Unspecified 01/16/2020,2018,02/05/2018,05/04 Influenza, injectable, quadrivalent 04/14/2022 Influenza, seasonal, injectable 05/04/2017 Pfizer Carson Cap SARS-CoV-2 08/03/2021 Pneumococcal polysaccharide vaccine, 23-valent, age 2 years and older (PNEUMOVAX 23) 12/10/2020,05/04/2017 Tdap vaccine, age 7 year and older (BOOSTRIX, ADACEL) 04/05/2022 Zoster vaccine, recombinant, adult (SHINGRIX) 02/13/2020 Family History Medical History Relation Name Comments arteriosclerotic cardio disease Brother Alzheimer's disease Father Georgi Savedge Dementia Father Georgi Savedge Heart disease Father Georgi Savedge Parkinsonism Father Georgi Savedge Stroke Father Georgi Savedge arteriosclerotic cardio disease Father Georgi Ramsey edge Stroke Father's Sister 1 Carolina s. Mary Stroke Father's Sister 2 Carolina s. Mary Arthritis Mother Yanet Savedge Hypertension Mother Yanet Savedge Stroke Mother Yanet Savedge arteriosclerotic cardio disease Mother Yanet Savedge Alzheimer's disease Other 1 grandmother Diabetes Other 2 aunt Depression Paternal Grandmother Melissa Longoria Savedge Stroke Paternal Grandmother Melissa Longoria Savedge Relation Name Status Comments Brother Father Georgi Savedge Alive Father's Sister 1 Carolina s. Mary Alive Father's Sister 2 Carolina s. Mary Alive Mother Yanet Savedge Alive Other 1 grandmother Other 2 aunt Paternal Grandfather Georgi Frost Savesge Alive Paternal Grandmother Melissa Longoria Savedge Alive Social History Tobacco Use Types Packs/Day Years Used Date Smoking Tobacco: Never Smokeless Tobacco: Never Tobacco Cessation:Counseling Given: Not Answered Alcohol Use Standard Drinks/Week Comments Never 0 (1 standard drink = 0.6 oz pur e alcohol) B1300 Health Literacy Answer Date Recor ded How often do you need to hav e someone help you when you read instructions, pamphlets, or other written material from your doctor or pharmacy? Sometimes 01/02/2024 [employer] Answer Date Recorded In the past 12 months has e electric, gas, oil, or water [employer] threatened to shut off services in your [...] often do you attend chur ch or latter day services? More than 4 times per year 07/24/2024 Do you belong to any clubs o r organizations such as catholic groups, unions, fraternal or athletic groups, or [...] Recorded Patient Health Questionnaire-2 Score 0 09/12/2024 [facility] - Occupational Stress [...] any time in the past 12 m [facility] [place], were you homeless or living in a jail (including now)? No 07/24/2024 Sex and Gender [...] No / Unsure 09/12/2024 2:10 PM EDT Last Filed Vital Signs Vital Sign Reading Time Taken Comments Blood Pressure 143/85 09/12/2024 2:18 PM EDT Pulse 78 09/13/2024 12:26 PM EDT Temperature 35.9 C (96.6 F) 07/25/2024 11:20 AM EDT Respiratory Rate 17 09/12/2024 2:18 PM EDT Oxygen Saturation 92% 09/13/2024 12:26 PM EDT Inhaled Oxygen Concentration - - Weight 81.6 kg (180 lb) 09/13/2024 12:26 PM EDT Height 175.3 cm (5' 9 ) 09/12/2024 2:18 PM EDT Body Mass Index 26.58 09/12/2024 2:18 PM EDT Plan of Treatment Upcoming Encounters Date Type Department Care Team (Late st Contact Info) Description 11/07/2024 11:30 AM EDT Procedure Visit [facility] [address] [place] [phone] Jodie Matthews MD [address] [place] [address] 12/19/2024 2:45 PM EDT Office Visit [facility] [address] [facility] [address] [place] [address] Courtney Mayfield MD [address] [facility], [address] [place] [address] 02/17/2025 11:30 AM EDT Telemedicine [facility] [address] [place] [address] Leonila Kern, TRANSITIONAL STUDIES INSTRUCTOR-MUFF WINDER [address] [facility] [place] [address] Health Maintenance Due Date Last Done Comments CT Colonography 1961 Colonoscopy 1961 Colorectal Cancer Screening 1961 Diabetes: Hemoglobin A1C 1961 Diabetes: Urine Protein Screening 1961 FIT-DNA (Cologuard) 1961 FIT 1961 HIV Screening 1961 Lipid Panel 1961 Medicare Annual Wellness Visit (AWV) 1961 Sigmoidoscopy 1961 MMR Vaccines (1 of 1 - Standard series) 1962 Hepatitis C Screening 1979 Diabetes: Retinopathy Screening 06/09/2019 06/09/2017, 06/09/2017, 06/09/2017, Additional history exists Zoster Vaccines (2 of 2) 04/09/2020 02/13/2020 RSV High Risk: (Elderly (60+) or Population) (1 - Risk 60-74 years 1-dose series) 2021 COVID-19 Vaccine (2 - Pfizer risk series) 08/24/2021 08/03/2021 Pneumococcal Vaccine (3 of 3 - PCV) 12/10/2021 12/10/2020, 05/04/2017 DTaP/Tdap/Td Vaccines (2 - Td or Tdap) 04/05/2032 04/05/2022 Irritable Bowel Syndrome Discontinued 05/12/2022 Influenza Vaccine Completed 02/04/2024, , 04/14/2022, Additional history exists HIB Vaccines Aged Out No longer eligi ble based on patient's age to complete this topic HPV Vaccines Aged Out No longer eligi ble based on patient's age to complete this topic Hepatitis A Vaccines Aged Out No long er eligible based on patient's age to complete this topic Hepatitis B Vaccines Aged Out No long er eligible based on patient's age to complete this topic IPV Vaccines Aged Out No longer eligi ble based on patient's age to complete this topic Meningococcal Vaccine Aged Out No nanette mel eligible based on patient's age to complete this topic Rotavirus Vaccines Aged Out No longer eligible based on patient's age to complete this topic Procedures Procedure Name Priority Date/Time Associated Diagnosis Comments POTASSIUM Routine 09/13/2024 1:13 PM EDT Hypokalemia HEAD/FACE/JAW BOTULINUM INJECTION Routine 08/17/2024 3:58 PM EDT Intractable chronic migraine without aura and with status migrainosus EGD Routine 05/12/2022 8:28 AM EST from Last 3 Months or Most Recently Relevant to Health Maintenance Results * Potassium (09/13/2024 1:13 PM EDT) POTASSIUM 3.8 3.5 - 5.3 mmol/L [facility] Blood Venous blood specimen / Unknown 09/13/2024 1:13 PM EDT 09/13/2024 1:13 PM EDT us Courtney Mayfield MD LAB BLOOD ORDERABLES Final R esult [employer] [facility] [employer] [address], [address] [place] [phone] * HEAD/FACE/JAW BOTULINUM INJECTION (08/17/2024 3:58 PM EDT) Narrative Jodie Matthews MD - 08/17/2024 3:58 PM EDT Jodie Matthews MD 08/17/2024 3:58 PM Head/Face/Jaw Botulinum Injection Date/Time: 08/17/2024 3:58 PM Performed by: Jodie Matthews MD Authorized by: Jodie Matthews MD Consent: Consent obtained: Verbal Consent given by: Patient Procedure details: EMG used? No Electrical stimulation used? No Diluted by: Preservative free saline Medications: 200 Units onabotulinumtoxinA 100 unit Total units available: 200 Ad hoc region injected: Head see diagram with 200 units Total units injected: 200 Total units wasted: 0 Post-procedure details: Patient tolerance of procedure: Tolerated well, no immediate complications Comments: Please do not rub areas for 24 hours. No pressure above eyebrows for 24 hours. Watch out for helmets, headlamps, headbands, goggles, or massage for 24 hours. If there is discomfort, ice for the first 24 hour,s heat after that. Headaches may worsen, or you may experience neck stiffness. If this occurs use your usual headache medication or a mild anti inflammatory such as advil or aleve. Please call if you have difficulty swallowing. us Jodie Matthews MD IN CLINIC/BEDSIDE ORDERABLES F inal Result * Esophagogastroduodenoscopy (EGD) (05/12/2022 8:28 AM EST) Anatomical Region Laterality Modality Endoscopy 05/12/2022 8:28 AM EST Narrative 10/19/2022 10:05 PM EDT Patient Name: Brandon Bagley Procedure Date: 05/12/2022 8:28 AM Date of : 1960 Admit Type: Outpatient Site: [facility] Ethnicity: Not or Race: White Attending MD: Park Byrd MD, [id number] Procedure: Upper GI endoscopy Indications: Iron deficiency anemia, Dysphagia Patient Profile: This is a 62 year old male. Refer to note in patient chart for documentation of history and physical. Providers: Park Byrd MD (Doctor), Barbara Michelle RN (Nurse), Anson Fernandez, Unit Leader Referring: Farrah Demboske Medicines: Monitored Anesthesia Care Complications: No immediate complications. Procedure: Pre-Anesthesia Assessment: - Prior to the procedure, a History and Physical was performed, and patient medications and allergies were reviewed. The patient is competent. The risks and benefits of the procedure and the sedation options and risks were discussed with the patient. All questions were answered and informed consent was obtained. Patient identification and proposed procedure were verified by the physician, the nurse, the boat wrapper and the maintenance mechanic technician in the procedure room. Mental Status Examination: alert and oriented. Airway Examination: normal oropharyngeal airway and neck mobility. Respiratory Examination: clear to auscultation. CV Examination: normal. Prophylactic Antibiotics: The patient does not require prophylactic antibiotics. Prior Anticoagulants: The patient has taken no anticoagulant or antiplatelet agents. ASA Grade Assessment: III - A patient with severe systemic disease. After reviewing the risks and benefits, the patient was deemed in satisfactory condition to undergo the procedure. The anesthesia plan was to use monitored anesthesia care (MAC). Immediately prior to administration of medications, the patient was re-assessed for adequacy to receive sedatives. The heart rate, respiratory rate, oxygen saturations, blood pressure, adequacy of pulmonary ventilation, and response to care were monitored throughout the procedure. The physical status of the patient was re-assessed after the procedure. After obtaining informed consent, the endoscope was passed under direct vision. Throughout the procedure, the patient's blood pressure, pulse, and oxygen saturations were monitored continuously. The endoscope was introduced through the mouth, and advanced to the second part of duodenum. The upper GI endoscopy was accomplished without difficulty. The patient tolerated the procedure well. Findings: Patchy mild mucosal changes characterized by subtle scarring and altered texture were found in the middle third of the esophagus and in the lower third of the esophagus. Biopsies were taken with a cold forceps for histology. The Z-line was found 36 cm from the incisors. Localized mild mucosal changes characterized by scarring were found in the prepyloric region of the stomach. The entire examined stomach was otherwise normal. Biopsies were taken with a cold forceps for histology. The ampulla and examined duodenum were normal. Biopsies were taken with a cold forceps for histology from the duodenum. Moderate Sedation: N/A Estimated Blood Loss: Estimated blood loss: none. Impression: - Scarred, texture changed mucosa in the esophagus. Biopsied. - Z-line, 36 cm from the incisors. - Scarred mucosa in the prepyloric region of the stomach. - Normal stomach. Biopsied. - Normal ampulla and examined duodenum. Biopsied. Recommendation: - Patient has a contact number available for emergencies. The signs and symptoms of potential delayed complications were discussed with the patient. Return to normal activities tomorrow. Written discharge instructions were provided to the patient. - Written discharge instructions were provided to the patient. - Resume previous diet. - Continue present medications. - Await pathology results. Procedure Code(s): --- Professional --- 22481, Esophagogastroduodenoscopy, flexible, transoral; with biopsy, single or multiple Diagnosis Code(s): --- Professional --- K22.89, Other specified disease of esophagus K31.89, Other diseases of stomach and duodenum D50.9, Iron deficiency anemia, unspecified R13.10, Dysphagia, unspecified CPT copyright 2021 [employer]. All rights reserved. The codes documented in this report are preliminary and upon food mixer review may be revised to meet current compliance requirements. Attending Participation: I personally performed the entire procedure. MD Park Elias MD 05/12/2022 8:44:53 AM This report has been signed electronically. Number of Addenda: 0 Note Initiated On: 05/12/2022 8:28 AM Total Procedure Duration Time 0 hours 6 minutes 17 seconds Procedure Note Park Byrd MD - 03/29/2024 Patient Name: Brandon Bagley Procedure Date: 05/12/2022 8:28 AM Date of : 1960 Admit Type: Outpatient Site: [facility] Ethnicity: Not or Race: White Attending MD: Park Byrd MD, [id number] Procedure: Upper GI endoscopy Indications: Iron deficiency anemia, Dysphagia Patient Profile: This is a 62 year old male. Refer to note inpatient chart for documentation of history and physical. Providers: Park Byrd MD (Doctor), Barbara Michelle RN(Nurse), Anson Fernandez, Unit Leader Referring: Farrah Steve Medicines: Monitored Anesthesia Care Complications: No immediate complications. Procedure: Pre-Anesthesia Assessment: - Prior to the procedure, a History and Physicalwas performed, and patient medications and allergieswere reviewed. The patient is competent. The risks and benefits of the procedure and the sedation optionsand risks were discussed with the patient. Allquestions were answered and informed consent was obtained. Patient identification and proposed procedure were verified by the physician, the nurse, theanesthetist and the maintenance mechanic technician in the procedure room. Mental Status Examination: alert and oriented. Airway Examination: normal oropharyngeal airway and neck mobility. Respiratory Examination: clear to auscultation. CV Examination: normal. Prophylactic Antibiotics: The patient does not requireprophylactic antibiotics. Prior Anticoagulants: The patient has taken no anticoagulant or antiplatelet agents. ASA Grade Assessment: III - A patient with severesystemic disease. After reviewing the risks and benefits,the patient was deemed in satisfactory condition to undergo the procedure. The anesthesia plan was touse monitored anesthesia care (MAC). Immediately priorto administration of medications, the patient was re-assessed for adequacy to receive sedatives. The heart rate, respiratory rate, oxygen saturations, blood pressure, adequacy of pulmonary ventilation,and response to care were monitored throughout the procedure. The physical status of the patient was re-assessed after the procedure. After obtaining informed consent, the endoscope was passed under direct vision. Throughout theprocedure, the patient's blood pressure, pulse, and oxygen saturations were monitored continuously. Theendoscope was introduced through the mouth, and advanced tothe second part of duodenum. The upper GI endoscopy was accomplished without difficulty. The patienttolerated the procedure well. Findings: Patchy mild mucosal changes characterized by subtle scarring andaltered texture were found in the middle third of the esophagus and in thelower third of the esophagus. Biopsies were taken with a cold forceps for histology. The Z-line was found 36 cm from the incisors. Localized mild mucosal changes characterized by scarring were foundin the prepyloric region of the stomach. The entire examined stomach was otherwise normal. Biopsies were taken with a cold forceps for histology. The ampulla and examined duodenum were normal. Biopsies were takenwith a cold forceps for histology from the duodenum. Moderate Sedation: N/A Estimated Blood Loss: Estimated blood loss: none. Impression: - Scarred, texture changed mucosa in the esophagus. Biopsied. - Z-line, 36 cm from the incisors. - Scarred mucosa in the prepyloric region of the stomach. - Normal stomach. Biopsied. - Normal ampulla and examined duodenum. Biopsied. Recommendation: - Patient has a contact number available for emergencies. The signs and symptoms of potential delayed complications were discussed with thepatient. Return to normal activities tomorrow. Written discharge instructions were provided to thepatient. - Written discharge instructions were provided tothe patient. - Resume previous diet. - Continue present medications. - Await pathology results. Procedure Code(s): --- Professional --- 94541, Esophagogastroduodenoscopy, flexible, transoral; with biopsy, single or multiple Diagnosis Code(s): --- Professional --- K22.89, Other specified disease of esophagus K31.89, Other diseases of stomach and duodenum D50.9, Iron deficiency anemia, unspecified R13.10, Dysphagia, unspecified CPT copyright 2021 [employer]. All rights reserved. The codes documented in this report are preliminary and upon food mixer reviewmay be revised to meet current compliance requirements. Attending Participation: I personally performed the entire procedure. MD Park Elias MD 05/12/2022 8:44:53 AM This report has been signed electronically. Number of Addenda: 0 Note Initiated On: 05/12/2022 8:28 AM Total Procedure Duration Time 0 hours 6 minutes 17 seconds Melissa Wilson TRANSITIONAL STUDIES INSTRUCTOR-MUFF WINDER ENDOSCOPY PROCEDURE ORD ERABLES Edited Result - Final from Last 3 Months or Most Recently Relevant to Health Maintenance Insurance [employer] Care Teams Director Facilities Maintenance Relationship Specialty Start Date End Date Raquel Rayo MD [address] [place] [address] [place] [address] PCP - General 09/19/10 Courtney Mayfiedl MD [address] [facility], [address] [place] [address] Referring Physician Allergy and Immunology 02/12/24
--- OUTSIDE RECORDS SUMMARY | 2024-10-02 00:30 | XMS_ITS | Encounter Summary ---
Author Organization [facility] Address [address] [place] [address] Phone Care Team Providers Care Director Apparel Name Role Phone Raquel Rayo MD Primary Care Provider [phone] Courtney Mayfield MD Unavailable [phone] Encounter Details Date Type Department Care Team (Late st Contact Info) Description 11/29/2020 Orders Only [facility] [address] [place] [address] Conversion, Onbase Social History Tobacco Use Types [...] Description 11/07/2024 11:30 AM EDT Procedure Visit [facility] [address] [place] [phone] Jodie Matthews MD [address] [place] [address] 12/19/2024 2:45 PM EDT Office Visit [facility] [address] [place] [phone] Courtney Mayfield MD [address] [facility], [address] [address] [place] [address] 02/17/2025 11:30 AM EDT Telemedicine [facility] [address] [facility] [address] [place] [phone] Leonila Kern APRN-TELLER HEAD [address] [facility], [facility] [address] [place] [address] Scheduled Orders Name Type Priority Associated Diagnoses Orde r Schedule OUTSIDE LAB SCAN Lab Ordered: 11/29/2020 documented as of this encounter Visit Diagnoses Not on filedocumented in this encounter Care Teams Director Apparel Relationship Specialty Start Date End Date Raquel Rayo MD [address] [place] [address] [place] [address] PCP - General 09/19/10 Courtney Mayfield MD [address] [facility], [address] [address] [place] [address] Referring Physician Allergy and Immunology 02/12/24 documented as of this encounter
--- OUTSIDE RECORDS SUMMARY | 2024-10-02 00:30 | XMS_ITS | Encounter Summary ---
Author Organization [facility] Address [address] [place] [address] Care Team Providers Care Credit Controller Name Role Phone Raquel Rayo MD Primary Care Provider [phone] Reason for Visit * Reason Comments Medication Refill Encounter Details Date Type Department Care Team ([facility] st Contact Info) Description 05/05/2020 Refill [facility] Neurology Specialist [address] [facility] [address] [place] [phone] Juan C Angelo MD [address] [place], [place] [phone] Medication Refill Social History Tobacco Use Types [...] documented as of this encounter Care Teams Credit Controller Relationship Specialty Start Date End Date Raquel Rayo MD PCP - General Family Medicine 11/21/19 documented as of this encounter
--- OUTSIDE RECORDS SUMMARY | 2024-10-02 00:30 | XMS_ITS | Encounter Summary ---
Author Organization [facility] Address [address] [place] [address] Care Team Providers Care Dispatcher Service Or Work Name Role Phone Raquel Rayo MD Primary Care Provider Reason for Visit * Reason Comments Medication Refill Encounter Details Date Type Department Care Team ([facility] st Contact Info) Description 01/22/2020 Refill [facility] Neurology Specialist [address] [facility] [address] [place] [phone] Juan C Angelo MD [address] [place], [place] [phone] Medication Refill Social History Tobacco Use Types [...] as of this encounter Visit Diagnoses Diagnosis Chronic peripheral neuropathic pain Pins and needles sensation Disturbance of skin sensation documented in this encounter Additional Health Concerns Infection Onset Date Last Indicated Resolved Time COVID-19 (Rule Out) Comment:ED Admission with COVID compatible/suspicious symptoms 09/08/2020 09/08/2020202 1 4:19 PM EDT documented as of this encounter Care Teams Dispatcher Service Or Work Relationship Specialty Start Date End Date Raquel Rayo MD PCP - General Family Medicine 11/21/19 documented as of this encounter
--- OUTSIDE RECORDS SUMMARY | 2024-10-02 00:30 | XMS_ITS | Encounter Summary ---
Author Organization [facility] Address [address] [place] [address] Phone Care Team Providers Care Cabinet Abrasive Sandblaster Name Role Phone Raquel Rayo MD Primary Care Provider [phone] Courtney Mayfield MD Unavailable [phone] Encounter Details Date Type Department Care Team (Late st Contact Info) Description 02/05/2024 Scanned Document [facility] [address] [place] [address] [place] [address] Courtney Mayfield MD [address] [facility], [facility] [address] [place] [phone] Social History Tobacco Use Types Packs/Day Years [...] from your doctor or pharmacy? Sometimes 01/02/2024 [facility] Utilities Answer Date Recorded In [...] often do you attend chur ch or presybeterian services? More than 4 times per year 01/02/2024 Do you belong to any clubs o r organizations such as mu-ism groups, unions, fraternal or athletic groups, or [...] Recorded Patient Health Questionnaire-2 Score 2 01/02/2024 [facility] - Occupational Stress [...] any time in the past 12 m [facility], were you homeless or living in a half-way (including now)? No 01/02/2024 Sex and Gender Information Value Date Recorded Sex Assigned at Not on file Legal Sex Male 11:51 PM EST Gender Identity Not on file Sexual Orientation Not on file documented as of this encounter Plan of Treatment Upcoming Encounters Date Type Department Care Team (Late st Contact Info) Description 11/07/2024 11:30 AM EDT Procedure Visit [facility] [address] [facility] [address] [place] [phone] Jodie Matthews MD [address] [place] [address] 12/19/2024 2:45 PM EDT Office Visit [facility] [address] [facility] [address] [place] [phone] Courtney Mayfield MD [address] [facility], [facility] [address] [place] [address] 02/17/2025 11:30 AM EDT Telemedicine [facility] [address] [place] [phone] Leonila Kern APRN-CNP [address] [facility], [facility] [address] [place] [address] documented as of this encounter Visit Diagnoses Not on filedocumented in this encounter Additional Health Concerns Assessment Noted Time PHQ-9 Depression Total Score: 14 024 3:34 AM EDT A fall risk assessment has been complete d for the patient 10/08/2023 10:34 AM EDT documented as of this encounter Care Teams Cabinet Abrasive Sandblaster Relationship Specialty Start Date End Date Raquel Rayo MD [address] [place] [address] [place] [address] PCP - General 09/19/10 Courtney Mayfield MD [address] [facility], [facility] [address] [place] [phone] Referring Physician Allergy and Immunology 02/12/24 documented as of this encounter
--- OUTSIDE RECORDS SUMMARY | 2024-10-02 00:30 | XMS_ITS | Encounter Summary ---
Author Organization [facility] Address [address] [place] [address] Care Team Providers Care Optimization Manager Name Role Phone Raquel Rayo MD Primary Care Provider Reason for Visit * Reason Comments Medication Refill Encounter Details Date Type Department Care Team ([facility] st Contact Info) Description 04/24/2020 Refill [facility] Neurology Specialist [address] [facility] [address] [place] [phone] Juan C Angelo MD [address] [place], [place] [phone] Medication Refill Social History Tobacco Use Types [...] documented as of this encounter Care Teams Optimization Manager Relationship Specialty Start Date End Date Raquel Rayo MD PCP - General Family Medicine 11/21/19 documented as of this encounter
--- OUTSIDE RECORDS SUMMARY | 2024-10-02 00:30 | XMS_ITS ---
Author Organization [facility] Address [address] [place] [address] Phone Care Team Providers Care Quality Assurance Monitor Name Role Phone Raquel Rayo MD Primary Care Provider [phone] Courtney Mayfield MD Unavailable [phone] [place] Non-Core Status:Enrolled (Active) Start date:01/18/2024 Enrollment date:01/18/2024 Enrollment reason:Identified from a specialty prescription Current support & services provided:Refill Management, Benefits and PA Management Continued Care and Services Coordination
--- OUTSIDE RECORDS SUMMARY | 2024-10-02 00:30 | XMS_ITS | Encounter Summary ---
Author Organization [facility] Address [address] [place] [address] Phone Care Team Providers Care Medical Administrative Technician Name Role Phone Raquel Rayo MD Primary Care Provider [phone] Courtney Mayfield MD Unavailable [phone] Encounter Details Date Type Department Care Team (Late st Contact Info) Description 09/20/2024 Scanned Document [facility] [address] [place] [address] [place] [address] Courtney Mayfield MD [address] [facility], [facility] [address] [place] [phone] Social History Tobacco Use Types Packs/Day Years [...] from your doctor or pharmacy? Sometimes 01/02/2024 [facility] Utilities Answer Date Recorded In the [...] often do you attend chur ch or church services? More than 4 times per year 07/24/2024 Do you belong to any clubs o r organizations such as yarsanism groups, unions, fraternal or athletic groups, or [...] Recorded Patient Health Questionnaire-2 Score 0 09/12/2024 [facility] Occupat ional Health - [...] any time in the past 12 m [facility], were you homeless or living in a correction (including now)? No 07/24/2024 Sex and Gender [...] Visit [facility] [address] [place] [phone] Jodie Matthews MD [address] [place] [address] 12/19/2024 2:45 PM EDT Office Visit [facility] [address] [facility] [address] [place] [address] Courtney Mayfield MD [address] [facility], [facility] [address] [place], [place] [phone] 02/17/2025 11:30 AM EDT Telemedicine [facility] [address] [place] [address] Leonila Kern APRN-PARADICHLOROBENZENE MACHINE OPERATOR [address] [facility], [address] [place] [address] documented as of this encounter Visit Diagnoses Not on filedocumented in this encounter Additional Health Concerns Assessment Noted Time PHQ-9 Depression Total Score: 23 025 11:53 AM EDT A fall risk assessment has been complete d for the patient 09/12/2024 2:25 PM EDT documented as of this encounter Care Teams Medical Administrative Technician Relationship Specialty Start Date End Date Raqeul Rayo MD [address] [place] [address] [place] [address] PCP - General 09/19/10 Courtney Mayfield MD 0 [facility], [address] [address] [place] [address] Referring Physician Allergy and Immunology 02/12/24 documented as of this encounter
--- OUTSIDE RECORDS SUMMARY | 2024-10-02 00:30 | XMS_ITS | Encounter Summary ---
Author Organization [facility] Address [address] [place] [address] Care Team Providers Care Insurance Defense Paralegal Name Role Phone Raquel Rayo MD Primary Care Provider [phone] Reason for Visit * Reason Comments Medication Refill Encounter Details Date Type Department Care Team ([facility] st Contact Info) Description 2020 Refill [facility] Neurology Specialist [address] [facility] [address] [place] [phone] Juan C Angelo MD [address] [place], [place] [phone] Medication Refill Social History Tobacco Use Types [...] documented as of this encounter Care Teams Insurance Defense Paralegal Relationship Specialty Start Date End Date Raquel Rayo MD PCP - General Family Medicine 11/21/19 documented as of this encounter
--- OUTSIDE RECORDS SUMMARY | 2024-10-02 00:30 | XMS_ITS | Encounter Summary ---
Author Organization [facility] Address [address] [place] [address] Phone Care Team Providers Care Five Roll Refiner Batch Mixer Name Role Phone Raquel Rayo MD Primary Care Provider [phone] Courtney Mayfield MD Unavailable [phone] Encounter Details Date Type Department Care Team (Late st Contact Info) Description 11/05/2017 Orders Only [facility] [address] [place] [address] Conversion, Onbase Social History Tobacco Use Types [...] Description 11/07/2024 11:30 AM EDT Procedure Visit [facility] [address] [place] [phone] Jodie Matthews MD [address] [place] [address] 12/19/2024 2:45 PM EDT Office Visit [facility] [address] [facility] [address] [place] [address] Courtney Mayfield MD [address] [facility], [address] [address] [place] [address] 02/17/2025 11:30 AM EDT Telemedicine [facility] [address] [place] [facility] [address] [place] [address] Leonila Kern PUG MILL OPERATOR-RIFLE CASE REPAIRER [address] [place] [facility], [facility] [address] [place] [address] Scheduled Orders Name Type Priority Associated Diagnoses Orde r Schedule OUTSIDE LAB SCAN Lab Ordered: 11/05/2017 documented as of this encounter Visit Diagnoses Not on filedocumented in this encounter Care Teams Five Roll Refiner Batch Mixer Relationship Specialty Start Date End Date Raquel Rayo MD [address] [place] [address] PCP - General 09/19/10 Courtney Mayfield MD [address] [facility], [address] [address] [place] [address] Referring Physician Allergy and Immunology 02/12/24 documented as of this encounter
--- OUTSIDE RECORDS SUMMARY | 2024-10-02 00:30 | XMS_ITS | Encounter Summary ---
Author Organization [facility] Address [address] [place] [address] Care Team Providers Care Four Slide Machine Setter Name Role Phone Raquel Rayo MD Primary Care Provider [phone] Reason for Visit * Reason Comments Medication Refill Encounter Details Date Type Department Care Team (Late st Contact Info) Description 04/13/2019 Refill [facility] Neurology Specialist [address] [facility] [address] [place] [phone] Liliana Madrigal, CONVERTER OPERATOR [facility] [address] [place] [address] Medication Refill Social History Tobacco Use Types [...] as of this encounter Visit Diagnoses Diagnosis Neuropathy Mononeuritis of unspecified site documented in this encounter Additional Health Concerns Infection Onset Date Last Indicated Resolved Time COVID-19 (Rule Out) 12/08/2019 12/08/2019 12/11/19 20 4:07 PM EDT COVID-19 (Rule Out) Comment:ED Admission with COVID compatible/suspicious symptoms 09/08/2020 09/08/2020 4:19 PM EDT documented as of this encounter Care Teams Four Slide Machine Setter Relationship Specialty Start Date End Date Raquel Rayo MD PCP - General Family Medicine 11/21/19 documented as of this encounter
--- OUTSIDE RECORDS SUMMARY | 2024-10-02 00:30 | XMS_ITS | Encounter Summary ---
Author Organization [facility] Address [address] [place] [address] Care Team Providers Care Detail Sergeant Name Role Phone Raquel Rayo MD Primary Care Provider [phone] Reason for Visit * Reason Comments Medication Refill Encounter Details Date Type Department Care Team (Late st Contact Info) Description 09/27/2019 Refill [facility] Primary Care [place] [address] [place] [address] Deats, Oni Rowan, CALL CENTER TEAM LEADER - CONTROL SYSTEMS TECHNICIAN [address] [facility] [address] [place] [phone] Medication Refill Social History Tobacco Use Types [...] have Coronavirus / COVID-19? No / Unsure 09/15/2019 10:47 AM EDT documented as of this encounter Plan of Treatment Not on file documented as of this encounter Visit Diagnoses Diagnosis Essential hypertension- Primary Unspecified essential hypertension documented in this encounter Additional Health Concerns Infection Onset Date Last Indicated Resolved Time COVID-19 (Rule Out) 12/08/2019 12/08/2019 12/11/19 4:07 PM EDT COVID-19 (Rule Out) Comment:ED Admission with COVID compatible/suspicious symptoms 09/08/2020 09/08/2020 4:19 PM EDT documented as of this encounter Care Teams Detail Sergeant Relationship Specialty Start Date End Date Raquel Rayo MD PCP - General Family Medicine 11/21/19 documented as of this encounter
--- OUTSIDE RECORDS SUMMARY | 2024-10-02 00:30 | XMS_ITS | Encounter Summary ---
Author Organization [facility] Address [address] [place] [address] Phone Care Team Providers Care Cleaner Wall Name Role Phone Raquel Rayo MD Primary Care Provider [phone] Courtney Mayfield MD Unavailable [phone] Encounter Details Date Type Department Care Team (Late st Contact Info) Description 09/21/2024 Scanned Document [facility] [address] [place] [address] [place] [address] Courtney Mayfield MD 960 [facility], [facility] [address] [place] [phone] Social History Tobacco Use Types Packs/Day Years [...] often do you attend chur ch or buddhism services? More than 4 times per year 07/24/2024 Do you belong to any clubs o r organizations such as mandaen groups, unions, fraternal or athletic groups, or [...] Recorded Patient Health Questionnaire-2 Score 0 09/12/2024 [facility] of Occupat ional Health - [...] any time in the past 12 m [facility], were you homeless or living in a skilled nursing (including now)? No 07/24/2024 Sex and Gender [...] Description 11/07/2024 11:30 AM EDT Procedure Visit [facility] [address] [place] [phone] Jodie Matthews MD [address] [place] [address] 12/19/2024 2:45 PM EDT Office Visit [facility] [address] [facility] [address] [place] [address] Courtney Mayfield MD [address] [facility], [facility] [address] [place], [place] [phone] 02/17/2025 11:30 AM EDT [facility] [address] [place] [address] Leonila Kern APRN-DEVELOPMENTAL EDUCATION INSTRUCTOR [address] ABDI [facility], [address] [address] [place] [address] documented as of this encounter Visit Diagnoses Not on filedocumented in this encounter Additional Health Concerns Assessment Noted Time PHQ-9 Depression Total Score: 23 025 11:53 AM EDT A fall risk assessment has been complete d for the patient 09/12/2024 2:25 PM EDT documented as of this encounter Care Teams Cleaner Wall Relationship Specialty Start Date End Date Raquel Rayo MD [address] [place] [address] [place] [address] PCP - General 09/19/10 Courtney Mayfield MD 0 [facility], [address] [address] [place] [address] Referring Physician Allergy and Immunology 02/12/24 documented as of this encounter
--- OUTSIDE RECORDS SUMMARY | 2024-10-02 00:30 | XMS_ITS | Encounter Summary ---
Author Organization [facility] Address [address] [place] [address] Phone Care Team Providers Care Aircraft Restorer Name Role Phone Raquel Rayo MD Primary Care Provider [phone] Courtney Mayfield MD Unavailable [phone] Encounter Details Date Type Department Care Team (Late st Contact Info) Description 02/04/2024 Scanned Document [facility] [address] [place] [address] [place] [address] Courtney Mayfield MD 960 [facility], [facility] [address] [place] [phone] Social History Tobacco Use Types Packs/Day Years [...] from your doctor or pharmacy? Sometimes 01/02/2024 [facility] Utilities Answer Date Recorded In the [...] any clubs o r organizations such as taoist groups, unions, fraternal or athletic groups, or [...] Recorded Patient Health Questionnaire-2 Score 2 01/02/2024 [facility] of Occupat ional Health [...] living in a halfway (including now)? No 01/02/2024 Sex and Gender Information Value Date Recorded Sex Assigned at Not on file Legal Sex Male 11:51 PM EST Gender Identity Not on file Sexual Orientation Not on file documented as of this encounter Plan of Treatment Upcoming Encounters Date Type Department Care Team (Late st Contact Info) Description 11/07/2024 11:30 AM EDT Procedure Visit [facility] [address] [facility] [address] [place] [address] Jodie Matthews MD [address] [place] [address] 12/19/2024 2:45 PM EDT Office Visit [facility] [address] [facility] [address] [place] [phone] Courtney Mayfield MD [address] [facility], [facility] [address] [place] [address] 02/17/2025 11:30 AM EDT Telemedicine [facility] [address] [place] [phone] Leonila Kern APRN-CNP [address] [facility], [facility] [address] [place] [address] documented as of this encounter Visit Diagnoses Not on filedocumented in this encounter Additional Health Concerns Assessment Noted Time PHQ-9 Depression Total Score: 14 024 3:34 AM EDT A fall risk assessment has been complete d for the patient 10/08/2023 10:34 AM EDT documented as of this encounter Care Teams Aircraft Restorer Relationship Specialty Start Date End Date Raquel Rayo MD [address] [place] [address] [place] [address] PCP - General 09/19/10 Courtney Mayfield MD [address] [facility], [facility] [address] [place] [phone] Referring Physician Allergy and Immunology 02/12/24 documented as of this encounter
--- OUTSIDE RECORDS SUMMARY | 2024-10-02 00:31 | XMS_ITS | Encounter Summary ---
Author Organization [facility] Address [address] [place] [address] Care Team Providers Care Mixed Crop Farmer Name Role Phone Raquel Rayo MD Primary Care Provider [phone] Reason for Visit * Reason Comments Medication Refill Encounter Details Date Type Department Care Team ([facility] st Contact Info) Description 07/15/2020 Refill [facility] Primary Care [place] [address] [place] [phone] Bertram Peters, TREATING INSPECTOR - STEEL WORKER [address] [place] [address] Medication Refill Social History Tobacco [...] as of this encounter Visit Diagnoses Diagnosis Dyslipidemia Other and unspecified hyperlipidemia documented in this encounter Additional Health Concerns Infection Onset Date Last Indicated Resolved Time COVID-19 (Rule Out) Comment:ED Admission with COVID compatible/suspicious symptoms 09/08/2020 09/08/2020 4:19 PM EDT documented as of this encounter Care Teams Mixed Crop Farmer Relationship Specialty Start Date End Date Raquel Rayo MD PCP - General Family Medicine 11/21/19 documented as of this encounter
--- OUTSIDE RECORDS SUMMARY | 2024-10-02 00:31 | XMS_ITS | Encounter Summary ---
Author Organization [facility] Address [address] [place] [address] Care Team Providers Care Travel Pta Name Role Phone Raquel Rayo MD Primary Care Provider [phone] Reason for Visit * Reason Comments Medication Refill Encounter Details Date Type Department Care Team (Late st Contact Info) Description 07/29/2019 Refill [facility] Primary Care [place] [address] [place] [address] Deats, Oni Rowan, FURNITURE SALES CONSULTANT - PSS DELIVERY PROFESSIONAL [address] [facility] [address] [place] [address] Medication Refill Social History Tobacco Use Types [...] documented as of this encounter Care Teams Travel Pta Relationship Specialty Start Date End Date Raquel Rayo MD PCP - General Family Medicine 11/21/19 documented as of this encounter
--- OUTSIDE RECORDS SUMMARY | 2024-10-02 00:31 | XMS_ITS | Encounter Summary ---
Author Organization [facility] Address [address] [place] [address] Care Team Providers Care Basket Filler Name Role Phone Raquel Rayo MD Primary Care Provider [phone] Reason for Visit * Reason Comments Medication Refill Encounter Details Date Type Department Care Team (Late st Contact Info) Description 08/09/2020 Refill [facility] Primary Care [place] [address] [place] [phone] Bertram Peters, RUBBER MOLDER - FINANCIAL SALES CONSULTANT [address] [place] [address] Medication Refill Social History Tobacco [...] documented as of this encounter Care Teams Basket Filler Relationship Specialty Start Date End Date Raquel Rayo MD PCP - General Family Medicine 11/21/19 documented as of this encounter
--- OUTSIDE RECORDS SUMMARY | 2024-10-02 00:31 | XMS_ITS | Encounter Summary ---
Author Organization [facility] Address [address] [place] [address] Phone Care Team Providers Care Clinical Research Administrator Name Role Phone Raquel Rayo MD Primary Care Provider [phone] Courtney Mayfield MD Unavailable [phone] Encounter Details Date Type Department Care Team (Late st Contact Info) Description 03/08/2024 Scanned Document [facility] [address] [place] [address] [place] [address] Courtney Mayfield MD [address] [facility], [facility] [address] [place] [phone] Social History Tobacco Use Types Packs/Day Years [...] from your doctor or pharmacy? Sometimes 01/02/2024 [facility] Utilities Answer Date Recorded In [...] often do you attend chur ch or pentecostal services? More than 4 times per year 01/02/2024 Do you belong to any clubs o r organizations such as evangelical groups, unions, fraternal or athletic groups, or [...] Recorded Patient Health Questionnaire-2 Score 2 01/02/2024 [facility] of Occupat ional Health - Occupational [...] any time in the past 12 m [facility], were you homeless or living in a skilled nursing (including now)? No 01/02/2024 Sex and Gender Information Value Date Recorded Sex Assigned at Not on file Legal Sex Male 11:51 PM EST Gender Identity Not on file Sexual Orientation Not on file COVID-19 Exposure Response Date Recorded In the last 10 days, have yo u been in contact with someone who was confirmed or suspected to have Coronavirus/COVID-19? No / Unsure 03/08/2024 9:23 AM EST documented as of this encounter Plan of Treatment Upcoming Encounters Date Type Department Care Team (Late st Contact Info) Description 11/07/2024 11:30 AM EDT Procedure Visit [facility] [address] [place] [phone] Jodie Matthews MD [address] [place] [address] 12/19/2024 2:45 PM EDT Office Visit [facility] [address] [facility] [address] [place] [address] Courtney Mayfield MD [address] [facility], [facility] [address] [place], [place] [phone] 02/17/2025 11:30 AM EDT [facility] [address] [place] [address] Leonila Kern APRN-LEATHER SHAVER [address] ABDI [facility], [address] [address] [place] [address] documented as of this encounter Visit Diagnoses Not on filedocumented in this encounter Additional Health Concerns Assessment Noted Time PHQ-9 Depression Total Score: 14 024 3:34 AM EDT A fall risk assessment has been complete d for the patient 10/08/2023 10:34 AM EDT documented as of this encounter Care Teams Clinical Research Administrator Relationship Specialty Start Date End Date Raquel Rayo MD [address] [place] [address] [place] [address] PCP - General 09/19/10 Courtney Mayfield MD [address] [facility], [address] [address] [place] [address] Referring Physician Allergy and Immunology 02/12/24 documented as of this encounter
--- OUTSIDE RECORDS SUMMARY | 2024-10-02 00:31 | XMS_ITS | Encounter Summary ---
Author Organization [facility] Address [address] [place] [address] Phone Care Team Providers Care Pv Design And Installation Technician Name Role Phone Raquel Rayo MD Primary Care Provider [phone] Courtney Mayfield MD Unavailable [phone] Encounter Details Date Type Department Care Team (Late st Contact Info) Description 06/23/2024 Scanned Document [facility] [address] [facility] [address] [place] [address] Courtney Mayfield MD [address] [facility] [address] [address] [place], [place] [phone] Social History Tobacco Use Types Packs/Day Years [...] often do you attend chur ch or orthodox services? More than 4 times per year 01/02/2024 Do you belong to any clubs o r organizations such as restoration groups, unions, fraternal or athletic groups, or [...] Date Recorded Patient Health Questionnaire-2 Score 4 04/07/2024 [facility] of Occupat ional Health - [...] any time in the past 12 m [facility], were you homeless or living in a assisted (including now)? No 01/02/2024 Sex and Gender Information Value Date Recorded Sex Assigned at Not on file Legal Sex Male 11:51 PM EST Gender Identity Not on file Sexual Orientation Not on file COVID-19 Exposure Response Date Recorded In the last 10 days, have yo u been in contact with someone who was confirmed or suspected to have Coronavirus/COVID-19? No / Unsure 06/14/2024 4:52 PM EST documented as of this encounter Plan of Treatment Upcoming Encounters Date Type Department Care Team (Late st Contact Info) Description 11/07/2024 11:30 AM EDT Procedure Visit [facility] [address] [place] [address] Jodie Matthews MD [address] [place] [address] 12/19/2024 2:45 PM EDT Office Visit [facility] [address] [facility] [address] [place] [address] Courtney Mayfield MD [address] [facility], [facility] [address] [place], [place] [phone] 02/17/2025 11:30 AM EDT [facility] [address] [place] [phone] Leonila Kern APRN-PHOTO STYLIST [address] ABDI [facility], [address] [place] [address] documented as of this encounter Visit Diagnoses Not on filedocumented in this encounter Additional Health Concerns Assessment Noted Time PHQ-9 Depression Total Score: 15 024 3:06 PM EST A fall risk assessment has been complete d for the patient 10/08/2023 10:34 AM EDT documented as of this encounter Care Teams Pv Design And Installation Technician Relationship Specialty Start Date End Date Raquel Rayo MD [address] [place] [address] [place] [address] PCP - General 09/19/10 Courtney Mayfield MD 960 [facility], [address] [place], [place] [phone] Referring Physician Allergy and Immunology 02/12/24 documented as of this encounter
--- OUTSIDE RECORDS SUMMARY | 2024-10-02 00:31 | XMS_ITS | Encounter Summary ---
Author Organization [facility] Address [address] [place] [address] Care Team Providers Care Cyber Legal Advisor Name Role Phone Raquel Rayo MD Primary Care Provider [phone] Reason for Visit * Reason Comments Medication Refill Encounter Details Date Type Department Care Team (Late st Contact Info) Description 07/31/2019 Refill [facility] Neurology Specialist [address] [place] [address] [place] [address] Liliana Madrigal, CLOTH PAINTER [facility] [address] [place] [address] Medication Refill Social History Tobacco [...] documented as of this encounter Care Teams Cyber Legal Advisor Relationship Specialty Start Date End Date Raquel Rayo MD PCP - General Family Medicine 11/21/19 documented as of this encounter
--- OUTSIDE RECORDS SUMMARY | 2024-10-02 00:31 | XMS_ITS | Encounter Summary ---
Author Organization [facility] Address [address] [place] [address] Phone Care Team Providers Care Rn Office Name Role Phone Raquel Rayo MD Primary Care Provider [phone] Courtney Mayfield MD Unavailable Encounter Details Date Type Department Care Team (Late st Contact Info) Description 06/01/2024 Scanned Document [facility] [address] [place] [address] [place] [address] Courtney Mayfield MD 960 [facility], [facility] [address] [place] [phone] Social History Tobacco Use Types Packs/Day Years [...] doctor or pharmacy? Sometimes 01/02/2024 [facility] Utilities Answer Date Recorded In the [...] often do you attend chur ch or jewish services? More than 4 times per year 01/02/2024 Do you belong to any clubs o r organizations such as muslim groups, unions, fraternal or athletic groups, or [...] Recorded Patient Health Questionnaire-2 Score 4 04/07/2024 [facility] of Occupat ional Health [...] any time in the past 12 m [facility], were you homeless or living in a alf (including now)? No 01/02/2024 Sex and Gender Information Value Date Recorded Sex Assigned at Not on file Legal Sex Male 11:51 PM EST Gender Identity Not on file Sexual Orientation Not on file COVID-19 Exposure Response Date Recorded In the last 10 days, have yo u been in contact with someone who was confirmed or suspected to have Coronavirus/COVID-19? No / Unsure 06/02/2024 12:58 PM EST documented as of this encounter Plan of Treatment Upcoming Encounters Date Type Department Care Team (Late st Contact Info) Description 11/07/2024 11:30 AM EDT Procedure Visit [facility] [address] [place] [phone] Jodie Matthews MD [address] [place] [address] 12/19/2024 2:45 PM EDT Office Visit [facility] [address] [facility] [address] [place] [address] Courtney Mayfield MD [address] [facility], [facility] [address] [place], [place] [phone] 02/17/2025 11:30 AM EDT [facility] [address] [place] [address] Leonila Kern APRN-INDOOR SPORTS CENTRE MANAGER [address] ABDI [facility], [address] [place] [address] documented as of this encounter Visit Diagnoses Not on filedocumented in this encounter Additional Health Concerns Assessment Noted Time PHQ-9 Depression Total Score: 15 024 3:06 PM EST A fall risk assessment has been complete d for the patient 10/08/2023 10:34 AM EDT documented as of this encounter Care Teams Rn Office Relationship Specialty Start Date End Date Raquel Rayo MD [address] [place] [address] [place] [address] PCP - General 09/19/10 Courtney Mayfield MD 960 [facility], [address] [place] [address] Referring Physician Allergy and Immunology 02/12/24 documented as of this encounter
--- OUTSIDE RECORDS SUMMARY | 2024-10-02 00:31 | XMS_ITS | Encounter Summary ---
Author Organization [facility] Address [address] [place] [address] Phone Care Team Providers Care Car Painter Name Role Phone Raquel Rayo MD Primary Care Provider [phone] Courtney Mayfield MD Unavailable [phone] Encounter Details Date Type Department Care Team (Late st Contact Info) Description 08/23/2024 Scanned Document [facility] [address] [place] [address] Courtney Mayfield MD 960 [facility], [facility] [address] [place], [place] [id number] Social History Tobacco Use Types Packs/Day Years [...] from your doctor or pharmacy? Sometimes 01/02/2024 [facility] Utilities Answer Date Recorded In the past [...] any clubs o r organizations such as christianity groups, unions, fraternal or athletic groups, or [...] Date Recorded Patient Health Questionnaire-2 Score 6 08/10/2024 [facility] Occupat ional Health - [...] any time in the past [address] [facility], were you homeless or living in a retirement (including now)? No 07/24/2024 Sex and Gender Information Value Date Recorded Sex Assigned at Not on file Legal Sex Male 11:51 PM EST Gender Identity Not on file Sexual Orientation Not on file COVID-19 Exposure Response Date Recorded In the last 10 days, have yo u been in contact with someone who was confirmed or suspected to have Coronavirus/COVID-19? No / Unsure 08/17/2024 10:33 AM EDT documented as of this encounter Plan of Treatment Upcoming Encounters Date Type Department Care Team (Late st Contact Info) Description 11/07/2024 11:30 AM EDT Procedure Visit [facility] [address] [place] [phone] Jodie Matthews MD [address] [place] [address] 12/19/2024 2:45 PM EDT Office Visit [facility] [address] [facility] [address] [place] [address] Courtney Mayfield MD [address] [facility], [facility] [address] [place], [place] [phone] 02/17/2025 11:30 AM EDT [facility] [address] [place] [address] Leonila Kern APRN-KNURLING MACHINE TENDER [address] [facility], [address] [place] [address] documented as of this encounter Visit Diagnoses Not on filedocumented in this encounter Additional Health Concerns Assessment Noted Time PHQ-9 Depression Total Score: 23 025 11:53 AM EDT A fall risk assessment has been complete d for the patient 08/10/2024 11:53 AM EDT documented as of this encounter Care Teams Car Painter Relationship Specialty Start Date End Date Raquel Rayo MD [address] [place] [address] [place] [address] PCP - General 09/19/10 Courtney Mayfield MD 0 [facility], [address] [place] [address] Referring Physician Allergy and Immunology 02/12/24 documented as of this encounter
--- OUTSIDE RECORDS SUMMARY | 2024-10-02 00:31 | XMS_ITS | Encounter Summary ---
Author Organization [facility] Address [address] [place] [address] Phone Care Team Providers Care Secretary To The Vice President Name Role Phone Raquel Rayo MD Primary Care Provider [phone] Courtney Mayfield MD Unavailable [phone] Reason for Visit * Reason Comments Med Refill Encounter Details Date Type Department Care Team (Late st Contact Info) Description 04/02/2024 Refill [facility] [address] [place] [address] Courtney Mayfield MD 960 [facility], [facility] [address] [place], [place] [phone] Asthma with chronic obstructive pulmonary disease (COPD) [...] from your doctor or pharmacy? Sometimes 01/02/2024 [place] Utilities Answer Date Recorded In the past [...] 01/02/2024 How often do you attend chur or congregation services? More than 4 times per year 01/02/2024 Do you belong to any clubs o r organizations such as samaritan groups, unions, fraternal or athletic groups, or [...] Recorded Patient Health Questionnaire-2 Score 2 01/02/2024 [facility] of Occupat ional Health - Occupational [...] any time in the past 12 m [facility], were you homeless or living in [...] Description 11/07/2024 11:30 AM EDT Procedure Visit [facility] [address] [place] [address] Jodie Matthews MD [address] [place] [address] 12/19/2024 2:45 PM EDT Office Visit [facility] [address] [facility] [address] [place] [address] Courtney Mayfield MD [address] [facility], [facility] [address] [place] [address] 02/17/2025 11:30 AM EDT [facility] [address] [facility] [address] [place] [address] Leonila Kern APRN-COLLECTOR OF PORT [address] ABDI [facility], [facility] [address] [place] [address] documented as of this encounter Visit Diagnoses Diagnosis Asthma with chronic obstructive pulmonary disease (COPD) (Multi) Chronic obstructive asthma, unspecified documented in this encounter Additional Health Concerns Assessment Noted Time PHQ-9 Depression Total Score: 14 024 3:34 AM EDT A fall risk assessment has been complete d for the patient 10/08/2023 10:34 AM EDT documented as of this encounter Care Teams Secretary To The Vice President Relationship Specialty Start Date End Date Raquel Rayo MD [address] [place] [address] PCP - General 09/19/10 Courtney Mayfield MD [address] [facility], [address] [place] [address] Referring Physician Allergy and Immunology 02/12/24 documented as of this encounter
--- OUTSIDE RECORDS SUMMARY | 2024-10-02 00:31 | XMS_ITS | Encounter Summary ---
Author Organization [facility] Address [address] [place] [address] Phone Care Team Providers Care Smutter Name Role Phone Raquel Rayo MD Primary Care Provider [phone] Courtney Mayfield MD Unavailable [phone] Encounter Details Date Type Department Care Team (Late st Contact Info) Description 08/23/2024 Scanned Document [facility] [address] [place] [address] Courtney Mayfield MD [address] [facility], [facility] [address] [place], [place] [phone] Social History Tobacco Use Types Packs/Day Years [...] from your doctor or pharmacy? Sometimes 01/02/2024 [facility] Utilities Answer Date Recorded In the [...] often do you attend chur ch or sabianist services? More than 4 times per year 07/24/2024 Do you belong to any clubs o r organizations such as druze groups, unions, fraternal or athletic groups, or [...] Recorded Patient Health Questionnaire-2 Score 6 08/10/2024 [facility] of Occupat ional Health - Occupational [...] any time in the past 12 m [facility], were you homeless or living in a long term (including now)? No 07/24/2024 Sex and Gender [...] 11/07/2024 11:30 AM EDT Procedure Visit [facility] [address] [place] [phone] Jodie Matthews MD [address] [place] [address] 12/19/2024 2:45 PM EDT Office Visit [facility] [address] [facility] [address] [place] [address] Courtney Mayfield MD [address] [facility], [facility] [address] [place], [place] [phone] 02/17/2025 11:30 AM EDT [facility] [address] [place] [address] Leonila Kern APRN-BACON SLICER [address] ABDI [facility], [address] [place] [address] documented as of this encounter Visit Diagnoses Not on filedocumented in this encounter Additional Health Concerns Assessment Noted Time PHQ-9 Depression Total Score: 23 025 11:53 AM EDT A fall risk assessment has been complete d for the patient 08/10/2024 11:53 AM EDT documented as of this encounter Care Teams Smutter Relationship Specialty Start Date End Date Raquel Rayo MD [address] [place] [address] [place] [address] PCP - General 09/19/10 Courtney Mayfield MD [address] [facility], [address] [place] [address] Referring Physician Allergy and Immunology 02/12/24 documented as of this encounter
--- OUTSIDE RECORDS SUMMARY | 2024-10-02 00:31 | XMS_ITS | Encounter Summary ---
Author Organization [facility] Address [address] [place] [address] Phone Care Team Providers Care Customer Sales Representative Name Role Phone Raquel Rayo MD Primary Care Provider [phone] Courtney Mayfield MD Unavailable [phone] Encounter Details Date Type Department Care Team (Late st Contact Info) Description 09/05/2024 Scanned Document [facility] [address] [place] [address] Courtney Mayfield MD 960 [facility], [facility] [address] [place] [phone] Social History Tobacco Use Types Packs/Day Years [...] doctor or pharmacy? Sometimes 01/02/2024 [facility] Utilities Answer Date Recorded In the past [...] any clubs o r organizations such as spiritism groups, unions, fraternal or athletic groups, or [...] Recorded Patient Health Questionnaire-2 Score 6 08/10/2024 [facility] of Occupat ional Health - [...] any time in the past 12 m [facility], were you homeless or living [...] Visit [facility] [address] [place] [phone] Jodie Matthews MD [address] [place] [address] 12/19/2024 2:45 PM EDT Office Visit [facility] [address] [facility] [address] [place] [address] Courtney Mayfield MD [address] [facility], [facility] [address] [place], [place] [id number] 02/17/2025 11:30 AM EDT [facility] [address] [place] [address] Leonila Kern APRN-STAFF ANESTHESIOLOGIST [address] ABDI [facility], [address] [place] [address] documented as of this encounter Visit Diagnoses Not on filedocumented in this encounter Additional Health Concerns Assessment Noted Time PHQ-9 Depression Total Score: 23 025 11:53 AM EDT A fall risk assessment has been complete d for the patient 08/10/2024 11:53 AM EDT documented as of this encounter Care Teams Customer Sales Representative Relationship Specialty Start Date End Date Raquel Rayo MD [address] [place] [address] [place] [address] PCP - General 09/19/10 Courtney Mayfield MD 0 [facility], [address] [place] [address] Referring Physician Allergy and Immunology 02/12/24 documented as of this encounter
--- OUTSIDE RECORDS SUMMARY | 2024-10-02 00:31 | XMS_ITS | Encounter Summary ---
Author Organization [facility] Address [address] [place] [address] Phone Care Team Providers Care Poker Machine Attendant Name Role Phone Raquel Rayo MD Primary Care Provider [phone] Courtney Mayfield MD Unavailable [phone] Encounter Details Date Type Department Care Team (Late st Contact Info) Description 12/14/2023 Scanned Document [facility] [address] [place] [address] Courtney Mayfield MD 960 [facility], [facility] [address] [place], [place] [phone] Social History Tobacco Use Types Packs/Day Years Used Date Smoking Tobacco: Never Smokeless Tobacco: Never Alcohol Use Standard Drinks/Week Comments Never 0 (1 standard drink = 0.6 oz pur e alcohol) PHQ-2 Answer Date Recorded Patient Health Questionnaire-2 Score 4 12/07/2023 Sex and Gender Information Value Date Recorded Sex Assigned at Not on file Legal Sex Male 11:51 PM EST Gender Identity Not on file Sexual Orientation Not on file COVID-19 Exposure Response Date Recorded In the last 10 days, have yo u been in contact with someone who was confirmed or suspected to have Coronavirus/COVID-19? No / Unsure 12/07/2023 10:24 AM EDT documented as of this encounter Plan of Treatment Upcoming Encounters Date Type Department Care Team (Late st Contact Info) Description 11/07/2024 11:30 AM EDT Procedure Visit [facility] [address] [facility] [address] [place] [phone] Jodie Matthews MD [address] [place] [address] 12/19/2024 2:45 PM EDT Office Visit [facility] [address] [facility] [address] [place] [address] Courtney Mayfield MD [address] [facility], [facility] [address] [place], [place] [address] 02/17/2025 11:30 AM EDT Telemedicine [facility] [address] [facility] [address] [place] [phone] Leonila Kern APRN-PRATIMA [address] [facility], [facility] [address] [place] [address] documented as of this encounter Visit Diagnoses Not on filedocumented in this encounter Additional Health Concerns Assessment Noted Time PHQ-9 Depression Total Score: 18 024 2:37 PM EDT A fall risk assessment has been complete d for the patient 10/08/2023 10:34 AM EDT documented as of this encounter Care Teams Poker Machine Attendant Relationship Specialty Start Date End Date Raquel Rayo MD [address] [place] [address] [place] [address] PCP - General 09/19/10 Courtney Mayfield MD [address] [facility], [facility] [address] [place] [address] Referring Physician Allergy and Immunology 02/12/24 documented as of this encounter
--- OUTSIDE RECORDS SUMMARY | 2024-10-02 00:31 | XMS_ITS | Encounter Summary ---
Author Organization [facility] Address [address] [place] [address] Phone Care Team Providers Care String Winding Machine Operator Name Role Phone Raquel Rayo MD Primary Care Provider Courtney Mayfield MD Unavailable [phone] Reason for Visit * Reason Comments Med Refill Encounter Details Date Type Department Care Team (Late st Contact Info) Description 08/11/2024 Refill [facility] [address] [place] [address] Jodie Matthews MD [address] [place] [address] Chronic migraine without aura without status migrainosus, not intractable Social History Tobacco Use Types Packs/Day Years [...] from your doctor or pharmacy? Sometimes 01/02/2024 [facility] Utilities Answer Date Recorded In the past 12 months has th e electric, gas, oil, or water company [...] often do you attend chur ch or yazdanism services? More than 4 times per year 07/24/2024 Do you belong to any clubs o r organizations such as jain groups, unions, fraternal or athletic groups, or [...] Patient Health Questionnaire-2 Score 6 08/10/2024 [facility] - Occupational Stress Questionnaire Answer Date Recorded [...] in the past 12 m [facility], were you homeless or living [...] [facility] [address] [place] [address] Jodie Matthews MD [address] [place] [address] 12/19/2024 2:45 PM EDT Office Visit [facility] [address] [facility] [address] [place] [address] Courtney Mayfield MD [address] [facility], [facility] [address] [place] [address] 02/17/2025 11:30 AM EDT Telemedicine [facility] [address] [place] [phone] Leonila Kern APRN-SEXUAL ASSAULT COUNSELOR [address] [facility] [address] [place] [address] documented as of this encounter Visit Diagnoses Diagnosis Chronic migraine without aura without status migrainosus, not intractable documented in this encounter Additional Health Concerns Assessment Noted Time PHQ-9 Depression Total Score: 23 025 11:53 AM EDT A fall risk assessment has been complete d for the patient 08/10/2024 11:53 AM EDT documented as of this encounter Care Teams String Winding Machine Operator Relationship Specialty Start Date End Date Raquel Rayo MD [address] [place] [address] PCP - General 09/19/10 Courtney Mayfield MD [address] [facility], [facility] [address] [place] [phone] Referring Physician Allergy and Immunology 02/12/24 documented as of this encounter
--- OUTSIDE RECORDS SUMMARY | 2024-10-02 00:31 | XMS_ITS | Encounter Summary ---
Author Organization [facility] Address [address] [place] [address] Phone Care Team Providers Care Teacher Education Director Name Role Phone Raquel Rayo MD Primary Care Provider [phone] Courtney Mayfield MD Unavailable [phone] Encounter Details Date Type Department Care Team (Late st Contact Info) Description 06/28/2024 Scanned Document [facility] [address] [place] [address] Courtney Mayfield MD 960 [facility], [facility] [address] [place] [phone] Social History Tobacco Use Types Packs/Day Years [...] from your doctor or pharmacy? Sometimes 01/02/2024 [facility] Utilities Answer Date Recorded In the [...] often do you attend chur ch or tenriism services? More than 4 times per year [...] Recorded Patient Health Questionnaire-2 Score 4 04/07/2024 [facility] of Occupat ional Health - [...] any time in the past 12 m [facility], were you homeless or living in [...] 11:30 AM EDT Procedure Visit [facility] [address] [place] [phone] Jodie Matthews MD [address] [place] [address] 12/19/2024 2:45 PM EDT Office Visit [facility] [address] [facility] [address] [place] [address] Courtney Mayfield MD [address] [facility], [facility] [address] [place], [place] [phone] 02/17/2025 11:30 AM EDT [facility] [address] [place] [address] Leonila Kern APRN-GAMBLING BOX PERSON [address] ABDI [facility], [address] [place] [address] documented as of this encounter Visit Diagnoses Not on filedocumented in this encounter Additional Health Concerns Assessment Noted Time PHQ-9 Depression Total Score: 15 024 3:06 PM EST A fall risk assessment has been complete d for the patient 10/08/2023 10:34 AM EDT documented as of this encounter Care Teams Teacher Education Director Relationship Specialty Start Date End Date Raquel Rayo MD [address] [place] [address] [place] [address] PCP - General 09/19/10 Courtney Mayfield MD 960 [facility], [address] [place] [address] Referring Physician Allergy and Immunology 02/12/24 documented as of this encounter
--- OUTSIDE RECORDS SUMMARY | 2024-10-02 00:31 | XMS_ITS | Encounter Summary ---
Author Organization [facility] Address [address] [place] [address] Phone Care Team Providers Care Two Way Radio Technician Name Role Phone Raquel Rayo MD Primary Care Provider Courtney Mayfield MD Unavailable [phone] Encounter Details Date Type Department Care Team (Late st Contact Info) Description 07/05/2024 Scanned Document [facility] [address] [place] [address] Courtney Mayfield MD 960 [facility], [facility] [address] [place] [phone] Social History Tobacco Use Types Packs/Day Years [...] from your doctor or pharmacy? Sometimes 01/02/2024 [facility] Utilities Answer Date Recorded In the past [...] often do you attend chur ch or druze services? More than 4 times per year 01/02/2024 Do you belong to any clubs o r organizations such as restorationist groups, unions, fraternal or athletic groups, or [...] Recorded Patient Health Questionnaire-2 Score 4 04/07/2024 [facility] of Occupat ional Health - Occupational [...] any time in the past 12 m [facility], were you homeless or living in a intermediate (including now)? No 01/02/2024 Sex and Gender Information Value Date Recorded Sex Assigned at Not on file Legal Sex Male 11:51 PM EST Gender Identity Not on file Sexual Orientation Not on file COVID-19 Exposure Response Date Recorded In the last 10 days, have yo u been in contact with someone who was confirmed or suspected to have Coronavirus/COVID-19? No / Unsure 07/06/2024 2:20 PM EST documented as of this encounter Plan of Treatment Upcoming Encounters Date Type Department Care Team (Late st Contact Info) Description 11/07/2024 11:30 AM EDT Procedure Visit [facility] [address] [place] [phone] Jodie Matthews MD [address] [place] [address] 12/19/2024 2:45 PM EDT Office Visit [facility] [address] [facility] [address] [place] [address] Courtney Mayfield MD [address] [facility], [facility] [address] [place], [place] [id number] 02/17/2025 11:30 AM EDT [facility] [address] [place] [address] Leonila Kern APRN-PROPERTY ASSISTANT [address] ABDI [facility], [address] [place] [address] documented as of this encounter Visit Diagnoses Not on filedocumented in this encounter Additional Health Concerns Assessment Noted Time PHQ-9 Depression Total Score: 15 024 3:06 PM EST A fall risk assessment has been complete d for the patient 10/08/2023 10:34 AM EDT documented as of this encounter Care Teams Two Way Radio Technician Relationship Specialty Start Date End Date Raquel Rayo MD [address] [place] [address] [place] [address] PCP - General 09/19/10 Courtney Mayfield MD 960 [facility], [address] [place] [address] Referring Physician Allergy and Immunology 02/12/24 documented as of this encounter
--- OUTSIDE RECORDS SUMMARY | 2024-10-02 00:31 | XMS_ITS | Encounter Summary ---
Author Organization [facility] Address [address] [place] [address] Phone Care Team Providers Care Maltster Name Role Phone Raquel Rayo MD Primary Care Provider [phone] Courtney Mayfield MD Unavailable [phone] Encounter Details Date Type Department Care Team (Late st Contact Info) Description 03/17/2024 Scanned Document [facility] [address] [place] [address] Courtney Mayfield MD 960 [facility], [facility] [address] [place], [place] [id number] Social History Tobacco Use Types Packs/Day Years [...] from your doctor or pharmacy? Sometimes 01/02/2024 [facility] Utilities Answer Date Recorded In the past [...] often do you attend chur ch or jain services? More than 4 times per year 01/02/2024 Do you belong to any clubs o r organizations such as buddhism groups, unions, fraternal or athletic groups, or [...] Recorded Patient Health Questionnaire-2 Score 2 01/02/2024 [facility] Occupat ional Health - Occupational Stress [...] time in the past 12 m [facility], were you homeless or living in a usp (including now)? No 01/02/2024 Sex and Gender [...] Visit [facility] [address] [place] [phone] Jodie Matthews MD [address] [place] [address] 12/19/2024 2:45 PM EDT Office Visit [facility] [address] [facility] [address] [place] [address] Courtney Mayfield MD [address] [facility], [facility] [address] [place], [place] [id number] 02/17/2025 11:30 AM EDT [facility] [address] [place] [phone] Leonila Kern APRN-VIDEO CLERK [address] ABDI [facility], [address] [place] [address] documented as of this encounter Visit Diagnoses Not on filedocumented in this encounter Additional Health Concerns Assessment Noted Time PHQ-9 Depression Total Score: 14 024 3:34 AM EDT A fall risk assessment has been complete d for the patient 10/08/2023 10:34 AM EDT documented as of this encounter Care Teams Maltster Relationship Specialty Start Date End Date Raquel Rayo MD [address] [place] [address] [place] [address] PCP - General 09/19/10 Courtney Mayfield MD 960 [facility], [address] [place] [address] Referring Physician Allergy and Immunology 02/12/24 documented as of this encounter
--- OUTSIDE RECORDS SUMMARY | 2024-10-02 00:31 | XMS_ITS | Encounter Summary ---
Author Organization [facility] Address [address] [place] [address] Phone Care Team Providers Care Sports Information Director Name Role Phone Raquel Rayo MD Primary Care Provider [phone] Courtney Mayfield MD Unavailable [phone] Encounter Details Date Type Department Care Team (Late st Contact Info) Description 03/18/2024 Scanned Document [facility] [address] [place] [address] Courtney Mayfield MD 960 [facility], [facility] [address] [place], [place] [id number] Social History Tobacco Use Types Packs/Day Years [...] your doctor or pharmacy? Sometimes 01/02/2024 [facility] Utilities Answer Date Recorded In [...] any clubs o r organizations such as adventism groups, unions, fraternal or athletic groups, or [...] Recorded Patient Health Questionnaire-2 Score 2 01/02/2024 [facility] Occupat ional Health - [...] any time in the past 12 m [facility], were you homeless or living in [...] [facility] [address] [place] [phone] Jodie Matthews MD [address] [place] [address] 12/19/2024 2:45 PM EDT Office Visit [facility] [address] [facility] [address] [place] [address] Courtney Mayfield MD [address] [facility], [facility] [address] [place], [place] [phone] 02/17/2025 11:30 AM EDT [facility] [address] [place] [phone] Leonila Kern APRN-LIVESTOCK NUTRITION TERRITORY MANAGER [address] ABDI [facility], [address] [place] [address] documented as of this encounter Visit Diagnoses Not on filedocumented in this encounter Additional Health Concerns Assessment Noted Time PHQ-9 Depression Total Score: 14 024 3:34 AM EDT A fall risk assessment has been complete d for the patient 10/08/2023 10:34 AM EDT documented as of this encounter Care Teams Sports Information Director Relationship Specialty Start Date End Date Raquel Rayo MD [address] [place] [address] [place] [address] PCP - General 09/19/10 Courtney Mayfield MD 960 [facility], [address] [place] [address] Referring Physician Allergy and Immunology 02/12/24 documented as of this encounter
--- OUTSIDE RECORDS SUMMARY | 2024-10-02 00:31 | XMS_ITS | Encounter Summary ---
Author Organization [facility] Address [address] [place] [address] Phone Care Team Providers Care Forest Worker Name Role Phone Raquel Rayo MD Primary Care Provider [phone] Courtney Mayfield MD Unavailable [phone] Encounter Details Date Type Department Care Team (Late st Contact Info) Description 09/05/2024 Scanned Document [facility] [address] [place] [address] Courtney Mayfield MD 960 [facility], [facility] [address] [place] [phone] Social History Tobacco Use Types Packs/Day Years [...] from your doctor or pharmacy? Sometimes 01/02/2024 [facility] Utilities Answer Date Recorded In [...] any clubs o r organizations such as congregation groups, unions, fraternal or athletic groups, or [...] Recorded Patient Health Questionnaire-2 Score 6 08/10/2024 [facility] of Occupat ional [...] were you homeless or living in a [place] [facility] [place] (including now)? No 07/24/2024 Sex and Gender [...] Procedure Visit [facility] [address] [place] [phone] Jodie Matthews MD [address] [place] [address] 12/19/2024 2:45 PM EDT Office Visit [facility] [address] [facility] [address] [place] [address] Courtney Mayfield MD [address] [facility], [facility] [address] [place], [place] [phone] 02/17/2025 11:30 AM EDT [facility] [address] [place] [address] Leonila Kern APRN-CRIB ATTENDANT [address] ABDI [facility], [address] [place] [address] documented as of this encounter Visit Diagnoses Not on filedocumented in this encounter Additional Health Concerns Assessment Noted Time PHQ-9 Depression Total Score: 23 025 11:53 AM EDT A fall risk assessment has been complete d for the patient 08/10/2024 11:53 AM EDT documented as of this encounter Care Teams Forest Worker Relationship Specialty Start Date End Date Raquel Rayo MD [address] [place] [address] [place] [address] PCP - General 09/19/10 Courtney Mayfield MD 0 [facility], [address] [place] [address] Referring Physician Allergy and Immunology 02/12/24 documented as of this encounter
--- OUTSIDE RECORDS SUMMARY | 2024-10-02 00:31 | XMS_ITS | Encounter Summary ---
Author Organization [facility] Address [address] [place] [address] Phone Care Team Providers Care Dumper Bulk System Name Role Phone Raquel Rayo MD Primary Care Provider [phone] Courtney Mayfield MD Unavailable [phone] Encounter Details Date Type Department Care Team (Late st Contact Info) Description 09/05/2024 Scanned Document [facility] [address] [place] [address] Courtney Mayfield MD 960 [facility], [facility] [address] [place] [phone] Social History Tobacco Use Types Packs/Day Years [...] your doctor or pharmacy? Sometimes 01/02/2024 [facility] Utilities Answer Date Recorded In the [...] often do you attend chur ch or taoism services? More than 4 times per year 07/24/2024 Do you belong to any clubs o r organizations such as denominational groups, unions, fraternal or athletic groups, or [...] Recorded Patient Health Questionnaire-2 Score 6 08/10/2024 [facility] of Occupat ional [...] any time in the past 12 m [facility], were you homeless or living in a custodial (including now)? No 07/24/2024 Sex and Gender [...] [facility] [address] [place] [phone] Jodie Matthews MD [address] [place] [address] 12/19/2024 2:45 PM EDT Office Visit [facility] [address] [facility] [address] [place] [address] Courtney Mayfield MD [address] [facility], [facility] [address] [place], [place] [phone] 02/17/2025 11:30 AM EDT [facility] [address] [place] [address] Leonila Kern APRN-CONSERVATION PLANNER [address] ABDI [facility], [address] [place] [address] documented as of this encounter Visit Diagnoses Not on filedocumented in this encounter Additional Health Concerns Assessment Noted Time PHQ-9 Depression Total Score: 23 025 11:53 AM EDT A fall risk assessment has been complete d for the patient 08/10/2024 11:53 AM EDT documented as of this encounter Care Teams Dumper Bulk System Relationship Specialty Start Date End Date Raquel Rayo MD [address] [place] [address] [place] [address] PCP - General 09/19/10 Courtney Mayfield MD 0 [facility], [address] [place] [address] Referring Physician Allergy and Immunology 02/12/24 documented as of this encounter
--- OUTSIDE RECORDS SUMMARY | 2024-10-02 00:31 | XMS_ITS | Encounter Summary ---
Author Organization [facility] Address [address] [place] [address] Phone Care Team Providers Care Heel Breaster Name Role Phone Raquel Rayo MD Primary Care Provider [phone] Courtney Mayfield MD Unavailable [phone] Encounter Details Date Type Department Care Team (Late st Contact Info) Description 09/06/2024 Scanned Document [facility] [address] [place] [address] Courtney Mayfield MD 960 [facility], [facility] [address] [place] [phone] Social History Tobacco Use Types Packs/Day Years [...] from your doctor or pharmacy? Sometimes 01/02/2024 [facility] Utilities Answer Date Recorded In the [...] often do you attend chur ch or holiness services? More than 4 times per year [...] Recorded Patient Health Questionnaire-2 Score 6 08/10/2024 [facility] of Occupat ional Health [...] [facility] [address] [place] [phone] Jodie Matthews MD [address] [place] [address] 12/19/2024 2:45 PM EDT Office Visit [facility] [address] [facility] [address] [place] [address] Courtney Mayfield MD [address] [facility], [facility] [address] [place], [place] [id number] 02/17/2025 11:30 AM EDT [facility] [address] [place] [address] Leonila Kern APRN-PEST MANAGEMENT SUPERVISOR [address] [facility], [address] [place] [address] documented as of this encounter Visit Diagnoses Not on filedocumented in this encounter Additional Health Concerns Assessment Noted Time PHQ-9 Depression Total Score: 23 025 11:53 AM EDT A fall risk assessment has been complete d for the patient 08/10/2024 11:53 AM EDT documented as of this encounter Care Teams Heel Breaster Relationship Specialty Start Date End Date Raquel Rayo MD [address] [place] [address] [place] [address] PCP - General 09/19/10 Courtney Mayfield MD 0 [facility], [address] [place] [address] Referring Physician Allergy and Immunology 02/12/24 documented as of this encounter
--- NOTE | 2024-10-02 00:34 | ECG_ITS ---
[facility] Test Date: 2024-10-02 Pat Name: VERNA NEELY Department: Room: - Gender: Male Web Applications Developer: : 1960 Requested By: Verna Zarate Order Number: [id number] Reading MD: FRANKO ROSADO M.D. Measurements Intervals [place] Rate: 118 P: 56 PA: 152 QRS: -8 QRSD: 92 T: 17 QT: 342 QTc: 412 Interpretive Statements 1120 Sinus tachycardia Poor R wave progression 5234 Left ventricular hypertrophy with repolarization abnormality 9150 abnormal ECG Compared to ECG 09/05/2024 14:50:34 No significant changes Electronically Signed On 10-02-2024 7:17:26 EDT by FRANKO ROSADO M.D.
--- OUTSIDE RECORDS SUMMARY | 2024-10-02 00:35 | XMS_ITS | CCD ---
Author Organization [facility] CliniSyne Care Team Providers Care Traffic Police Officer Name Role Phone Mathew Miller Unavailable Unavailable Jorge, Austen ASindi Unavailable Unavailable Jorge, Austen ASindi Unavailable Unavailable Kerwin Davis PA-C Unavailable Unavail able Ly Corado Unavailable Ladonna vailable Miscellaneous, SJ Unavailable Unavailable Miscellaneous, SJ Unavailable Unavailable Miscellaneous, SJ Unavailable Unavailable ALIX MURPHY Unavailable Unavailable RACHEL RAYO Unavailable Unavailable ALI, CARDOSO Unavailable Unavailable LEELA, CARDOSO Unavailable Unavailable Oni Gr Primary Care Provider [phone] Courtney Brown Unavailable Unavailable Mathew Miller Unavailable Unavailable Betty Sanches Unavailable Unavailable Jodie Matthews Unavailable Unavailable Rachel Rayo Unavailable Unavailable Mathew Miller Unavailable Unavailable Jodie Matthews Unavailable Unavailable Muoh, Henna H Unavailable Unavailable [place] Unavailable Unavailable Courtney Brown Unavailable Unavailable Home Smith Unavailable Unavailable MAIL EXAMINER, ALLERGY Unavailable Unava ilable Courtney Brown Unavailable Unavailable Mathew Miller Unavailable Unavailable Jodie Matthews Unavailable Unavailable Magaly Frederick Unavailable Unavail able DAYTON FULTON Admitting Unavailable DAYTON FULTON Attending Unavailable ONI GR Primary Care Unavailable Rachel Rayo Primary Care Provider Jodie Matthews Unavailable Unavail able Magaly Malagon Unavailable Unavailable Magaly Malagon Unavailable Unavailable Rachel Rayo MD Primary Care Provider Courtney Brown MD Unavailable Unavailable Mathew Miller MD Unavailable Unavailable Jodie Matthews MD Unavailable Unavailable Rachel Rayo Unavailable Unavailable Mathew Miller Unavailable Unavailable Jodie Matthews Unavailable Unavailable Americogarland, Henna H Unavailable Unavailable Magaly Malagon MD Unavailable Unavailable Courtney Brown Unavailable Unavailable Home Smith MD Unavailable Unavailable Rachel Rayo Unavailable Unavailable Unavailable Unavailable Unavailable Deats DELIVERY PROFESSIONALOni Burnham CNP Primary Care Provider MD Rachel Rayo Primary Care Provider MD Ketan Heard Admit Provider MD Ketan Heard Attending Provider BULL Jensen Other Provider Unavailable DO Luz Park Other Provider MD Juan F Pettit Other Provider MD Kerwin Rajput Other Provider MD Aureliano Black Other Provider MD Lynette Monzon Other Provider LUIS Duenas Other Provider MD Cora Walker Other Provider MD Fredy Avalos Other Provider MD Kiara Diehl Other Provider MD Rachel Rayo Primary Care Provider MD Rachel Rayo Referring Provider MD Alina Moran Attending Provider [phone] Sally Tiwari II Unavailable MD Rachel Rayo Primary Care Provider MD Sally Tiwari II Attending Provider [phone] MD Rachel Rayo Referring Provider MD Alina Moran Attending Provider MD Rachel Rayo Referring Provider MD Alina Moran Attending Provider DO Elizabeth Loyd Harpla Emergency Provider MD Rachel Rayo Referring Provider MD Alina Moran Attending Provider [phone] ULIS Connelly Emergency Provider MD Rachel Rayo Primary Care Provider MD Rachel Rayo Referring Provider MD Alina Moran Attending Provider RACHEL RAYO Primary Care Physician MD Sally Tiwari II Attending Provider Rachel Rayo Unavailable MD Rachel Rayo Primary Care Provider LUIS Connelly Emergency Provider MD Rachel Rayo Referring Provider MD Alina Moran Attending Provider MD Sally Tiwari II Attending Provider Dr. Rich Magana Attending Ladonna vailable Perri, Dr. Rachel Benitez Primary Care Unav ailable Courtney Brown Attending Unavailable Courtney Brown Referring Unavailable Dr. Rachel Rayo Primary Care Unav ailable Blades, Jodie Unavailable Dr. Rachel Rayo Primary Care Unav ailable [place], Park Referring Unavailable Rochelle, Park Attending Unavailable Rochelle, Park Admitting Unavailable MD Rachel Rayo Primary Care Provider [phone] LUIS Wilson Attending Provider GELA RUFFIN Attending Unavailable RACHEL RAYO Primary Care Unavailable GELA RUFFIN Attending Unavailable GELA RUFFIN Referring Unavailable RACHEL RAYO Primary Care Unavailable COURTNEY BROWN Admitting Unavailable COURTNEY BROWN Attending Unavailable COURTNEY BROWN Consulting Unavailable DR RACHEL RAYO Primary Care Unavailable STEPHANIE, COURTNEY M Attending Unavailable STEPHANIE, COURTNEY M Consulting Unavailable STEPHANIE, COURTNEY M Admitting Unavailable RAYO, DR RACHEL English Primary Care Unavailable STEPHANIE, COURTNEY M Attending Unavailable STEPHANIE, COURTNEY M Consulting Unavailable STEPHANIE, COURTNEY M Admitting Unavailable RAYO, DR RACHEL English Primary Care Unavailable GARLAND, RICH Consulting Unavailable RAYO, DR RACHEL English Primary Care Unavailable RAYO, DR RACHEL English Attending Unavailable RAYO, DR RACHEL English Admitting Unavailable RAYO, DR RACHEL English Consulting Unavailable STEPHANIE, COURTNEY M Admitting Unavailable STEPHANIE, COURTNEY M Attending Unavailable STEPHANIE, COURTNEY M Consulting Unavailable RAYO, DR RACHEL English Primary Care Unavailable MISC, DR IRBY Consulting Unavailable MISC, DR IRBY Admitting Unavailable MISC, DR IRBY Attending Unavailable RAYO, DR RACHEL English Primary Care Unavailable JIMÉNEZ ., DR LYNETTE Thomas Consulting Unavailable JIMÉNEZ ., DR LYNETTE Thomas Admitting Unavailable JIMÉNEZ ., DR LYNETTE Thomas Attending Unavailable RAYO, DR RACHEL English Primary Care Unavailable LUISA, RICH Consulting Unavailable STEPHANIE, COURTNEY M Attending Unavailable STEPHANIE, COURTNEY M Consulting Unavailable STEPHANIE, COURTNEY M Admitting Unavailable RAYO, DR RACHEL English Primary Care Unavailable STEPHANIE, COURTNEY M Attending Unavailable STEPHANIE, COURTNEY M Admitting Unavailable RAYO, DR RACHEL English Primary Care Unavailable STEPHANIE, COURTNEY M Attending Unavailable STEPHANIE, COURTNEY M Admitting Unavailable RAYO, DR RACHEL English Primary Care Unavailable RAYO, DR RACHEL English Primary Care Unavailable RAYO, DR RACHEL English Admitting Unavailable RAYO, DR RACHEL English Attending Unavailable STEPHANIE, COURTNEY M Attending Unavailable STEPHANIE, COURTNEY M Consulting Unavailable STEPHANIE, COURTNEY M Admitting Unavailable RAYO, DR RACHEL English Primary Care Unavailable STEPHANIE, COURTNEY M Attending Unavailable STEPHANIE, COURTNEY M Consulting Unavailable STEPHANIE, COURTNEY M Admitting Unavailable RAYO, DR RACHEL English Primary Care Unavailable RAYO, DR RACHEL English Primary Care Unavailable RAYO, DR RACHEL English Attending Unavailable RAYO, DR RACHEL English Consulting Unavailable RAYO, DR RACHEL English Admitting Unavailable HOUSE, DR OJEDA Admitting Unavailable HOUSE, DR OJEDA Attending Unavailable HOUSE, DR OJEDA Consulting Unavailable RAYO, DR RACHEL English Primary Care Unavailable CHAUDHRY ., DR JOHNSON Admitting Unavailable CHAUDHRY ., DR JOHNSON Attending Unavailable CHAUDHRY ., DR JOHNSON Consulting Unavailable RAYO, DR RACHEL English Primary Care Unavailable RAYO, DR RACHEL English Consulting Unavailable RAYO, DR RACHEL English Admitting Unavailable RAYO, DR RACHEL English Attending Unavailable RAYO, DR RACHEL English Primary Care Unavailable TAQUERIA, RAFY Admitting Unavailable TAQUERIA, RAFY Attending Unavailable TAQUERIA, RAFY Consulting Unavailable RAYO, DR RACHEL English Primary Care Unavailable DEX MARTINEZ Consulting Unavailable KATHY GIJuanita Consulting Unavailable JIMÉNEZ ., DR LYNETTE Thomas Admitting Unavailable JIMÉNEZ ., DR LYNETTE Thomas Attending Unavailable RAYO, DR RACHEL English Primary Care Unavailable JIMÉNEZ ., DR LYNETTE Thomas Consulting Unavailable JIMÉNEZ ., DR LYNETTE Thomas Admitting Unavailable JIMÉNEZ ., DR LYNETTE Thomas Attending Unavailable RAYO, DR RACHEL English Primary Care Unavailable JIMÉNEZ ., DR LYNETTE Thomas Attending Unavailable JIMÉNEZ ., DR LYNETTE Thomas Consulting Unavailable JIMÉNEZ ., DR LYNETTE Thomas Admitting Unavailable RAYO, DR RACHEL English Primary Care Unavailable LAKSHMIPATHY ., NARENDRANATH Admitting Ladonna vailable ISABEL ., BETH Consulting Unavailable LAKSHMIPATHY ., NARDEEATH Attending Ladonna vailable RAYO, DR RACHEL English Primary Care Unavailable JIMÉNEZ ., DR LYNETTE Thomas Admitting Unavailable JIMÉNEZ ., DR LYNETTE Thomas Attending Unavailable ISABEL ., BETH Consulting Unavailable RAYO, DR RACHEL English Primary Care Unavailable TAQUERIA, RAFY Consulting Unavailable TAQUERIA, RAFY Admitting Unavailable TAQEURIA, RAFY Attending Unavailable RAYO, DR RACHEL English Primary Care Unavailable ISABEL ., BETH Consulting Unavailable EFRAÍN RODRIGES Consulting Unavailable BLADES, JODIE Admitting Unavailable BLADES, JODIE Attending Unavailable RAYO, DR RACHEL English Primary Care Unavailable JIMÉNEZ ., DR LYNETTE Thomas Admitting Unavailable JIMÉNEZ ., DR LYNETTE Thomas Attending Unavailable RAYO, DR RACHEL English Primary Care Unavailable COURTNEY BROWN Attending Unavailable COURTNEY BROWN Consulting Unavailable RAYO, DR RACHEL English Primary Care Unavailable COURTNEY BROWN Admitting Unavailable ISABEL ., BETH Consulting Unavailable JIMÉNEZ ., DR LYNETTE Thomas Attending Unavailable JIMÉNEZ ., DR LYNETTE Thomas Admitting Unavailable RAYO, DR RACHEL English Primary Care Unavailable Jessiac Rodriguez Unavailable Dr. Kalpesh Brownn Joe Attending Unav ailable Rayo, Dr. Rachel Benitez Referring Unav ailable Rayo, Dr. Rachel Benitez Primary Care Unav ailable Florentino, Dr. Guerra Attending Unavailable Florentino, Dr. Guerra Referring Unavailable Rayo, Dr. Rachel Benitez Primary Care Unav ailable TORER, JACLYN AMAYA Referring Unavailable Rayo, Dr. Rachel Benitez Primary Care Unav ailable Florentino, Dr. Guerra Attending Unavailable Byron, Dr. Jodie Jones Attending Ladonna vailable Rayo, Dr. Rachel Benitez Primary Care Unav ailable Byron, Dr. Jodie Jones Referring Ladonna vailable Byron, Dr. Jodie Jones Referring Ladonna vailable Byron, Dr. Jodie Jones Attending Ladonna vailable Rayo, Dr. Rachel Benitez Primary Care Unav ailable Byron, Dr. Jodie Jones Attending Ladonna vailable Rayo, Dr. Rachel Benitez Primary Care Unav ailable Byron, Dr. Jodie Jones Referring Ladonna vailable Byron, Dr. Jodie Jones Attending Ladonna vailable Rayo, Dr. Rachel Benitez Primary Care Unav ailable Byron, Dr. Jodie Jones Referring Ladonna vailable Byron, Dr. Jodie Jones Attending Ladonna vailable Rayo, Dr. Rachel Benitez Primary Care Unav ailable Byron, Dr. Jodie Jones Referring Ladonna vailable Byron, Dr. Jodie Jones Attending Ladonna vailable Byron, Dr. Jodie Jones Referring Ladonna vailable Rayo, Dr. Rachel Benitez Primary Care Unav ailable Byron, Dr. Jodie Jones Attending Ladonna vailable Byron, Dr. Jodie Jones Referring Ladonna vailable Rayo, Dr. Rachel Benitez Primary Care Unav ailable Byron, Dr. Jodie Jones Referring Ladonna vailable Byron, Dr. Jodie Jones Attending Ladonna vailable Rayo, Dr. Rachel Benitez Primary Care Unav ailable Byron, Dr. Jodie Jones Attending Ladonna vailable Rayo, Dr. Rachel Benitez Primary Care Unav ailable Byron, Dr. Jodie Jones Referring Ladonna vailable Stephanie, Dr. Courtney Diaz Attending Unav ailable Rayo, Dr. Rachel Benitez Referring Unav ailable Rayo, Dr. Rachel Benitez Primary Care Unav ailable Stephanie, Dr. Courtney Diaz Attending Unav ailable Rayo, Dr. Rachel Benitez Primary Care Unav ailable Rayo, Dr. Rachel Benitez Referring Unav ailable Stephanie, Dr. Courtney Diaz Attending Unav ailable Rayo, Dr. Rachel Benitez Primary Care Unav ailable Rayo, Dr. Rachel Benitez Referring Unav ailable Stephanie, Dr. Courtney Diaz Attending Unav ailable Rayo, Dr. Rachel Benitez Referring Unav ailable Rayo, Dr. Rachel Benitez Primary Care Unav ailable Alpesh, Dr. Rich Tam Attending Ladonna vailable Rayo, Dr. Rachel Benitez Primary Care Ladonnav ailable Alpesh, Dr. Rich Tam Attending Ladonna vailable Rayo, Dr. Rachel Benitez Primary Care Unav ailable Perri, Dr. Rachel Benitez Primary Care Ladonnav ailable Torgabriel, Ms. Keen Attending Unavailable Torer, Ms. Keen Attending Unavailable Rayo, Dr. Rachel Benitez Primary Care Unav ailable Rayo, Dr. Rachel Benitez Primary Care Unav ailable Torer, Ms. Keen Attending Unavailable Magana, Dr. Rich Tam Attending Ladonna vailable Self, Referral Referring Unavailable Rayo, Dr. Rachel Benitez Primary Care Ladonnav ailable Alpesh, Dr. Rich Tam Attending Ladonna vailable Rayo, Dr. Rachel Benitez Primary Care Unav ailable Alpesh, Dr. Rich Tam Attending Ladonna vailable Rayo, Dr. Rachel Benitez Referring Unav ailable Rayo, Dr. Rachel Benitez Primary Care Unav ailable Perri, Dr. Rachel Benitez Primary Care Unav ailable Alpesh, Dr. Rich Tam Attending Ladonna vaDr. Rachel Hood Primary Care Unav Dr. Rich Hutchins Attending Ladonna MD Rachel Smyth Primary Care Provider MD Rachel Rayo Referring Provider [phone] LUIS Wilson Attending Provider Rachel Rayo MD Primary Care Provider Unavailable Rachel Rayo MD Primary Care Provider MD Rachel Rayo Primary Care Provider MD Rachel Rayo Referring Provider LUIS Wilson Attending Provider Rachel Rayo MD Primary Care Provider MD Rachel Rayo Primary Care Provider MD Rachel Rayo Referring Provider LUIS Wilson Attending Provider MD Sally Tiwari II Attending Provider MD Rachel Rayo Primary Care Provider MD Rachel Rayo Referring Provider LUIS Wilson Attending Provider Rachel Rayo MD Primary Care Provider DO Karthik Mcknight Emergency Provider [phone] MD Rachel Rayo Primary Care Provider GREYSON Rodriguez Attending Provider MD Rachel Rayo Primary Care Provider MD Rachel aRyo Referring Provider LUIS Wilson Attending Provider MD Rachel Rayo Referring Provider LUIS Wilson Attending Provider RICH MAGANA Referring Unavailable RAYO, RACHEL E Primary Care Unavailable MD Rachel Rayo Primary Care Provider Courtney Brown MD Unavailable Unavailable Primary Care Provider Unavailjama Rayo MD, Rachel English Primary Care Provider Rachel Rayo MD Referring Provider [phone] Melissa Wilson APRN Attending Provider Rachel Rayo MD Primary Care Provider Rachel Rayo MD Referring Provider Melissa Wilson APRN Attending Provider Courtney Brown MD Unavailable [phone] Rachel Rayo MD Primary Care Provider Rachel Rayo MD Referring Provider Melissa Wilson APRN Attending Provider RICH MAGANA Attending Unavailable RAYO, RACHEL E Primary Care Unavailable RICH MAGANA Attending Unavailable RAYO, RACHEL E Primary Care Unavailable RICH MAGANA Attending Unavailable RAYO, RACHEL E Primary Care Unavailable COLE QUINTANA Attending Unavailable RAYO, RACHEL E Primary Care Unavailable RICH MAGANA Referring Unavailable RAYO, RACHEL E Primary Care Unavailable Rayo, Rachel E Primary Care Unavailable Jessica Rodriguez Attending Unavailable Jessica Rodriguze Admitting Unavailable Rayo, Rachel E Primary Care Unavailable Jessica Rodriguez Attending Unavailable Jessica Rodriguez Admitting Unavailable Rayo, Rachel E Primary Care Unavailable Melissa Wilson Attending Unavail able Melissa Wilson Admitting Unavail able Rayo, Rachel E Referring Unavailable Rayo, Rachel E Primary Care Unavailable Karthik Mcknight Attending Unavailable Karthik Mcknight Admitting Unavailable SALMA GANDHI Attending Unavailabl e JODIE MATTHEWS Referring Unavailable RAYO, RACHEL E Primary Care Unavailable JODIE MATTHEWS Attending Unavailable RAYO, RACHEL E Primary Care Unavailable BYRON, JODIE E Referring Unavailable COURTNEY BROWN Attending Unavailable RAYO, RACHEL E Primary Care Unavailable BYRON, JODIE E Attending Unavailable RAYO, RACHEL E Primary Care Unavailable BYRON, JODIE E Attending Unavailable RAYO, RACHEL E Primary Care Unavailable BYRON, JODIE E Referring Unavailable STEPHANIE, COURTNEY M Attending Unavailable RAYO, RACHEL E Primary Care Unavailable STEPHANIE, COURTNEY M Attending Unavailable RAYO, RACHEL E Primary Care Unavailable JER, JESSICA L Attending Unavailable RAYO, RACHEL E Primary Care Unavailable JER, JESSICA L Referring Unavailable BYRON, JODIE E Attending Unavailable RAYO, RACHEL E Primary Care Unavailable JER, JESSICA L Attending Unavailable RAYO, RACHEL E Primary Care Unavailable STEPHANIE, COURTNEY M Attending Unavailable RAYO, RACHEL E Primary Care Unavailable JER, JESSICA L Attending Unavailable RAYO, RACHEL E Primary Care Unavailable BYRON, JODIE E Attending Unavailable RAYO, RACHEL E Primary Care Unavailable JER, JESSICA L Attending Unavailable RAYO, RACHEL E Primary Care Unavailable STEPHANIE, COURTNEY M Attending Unavailable RAYO, RACHEL E Primary Care Unavailable Issa Gonzales Attending Unavailable Issa Gonzales Referring Unavailable TATA, JESSICA E Attending Unavailable TATA, JESSICA E Admitting Unavailable TATA, JESSICA E Attending Unavailable Barbara Duron Admitting Unavailable Barbara Duron Attending Unavailable RAYO, RACHEL Referring Unavailable Issa Gonzales Attending Unavailable Issa Gonzales Admitting Unavailable RAYO, RACHEL Referring Unavailable Issa Gonzales Attending Unavailable Issa Gonzales Admitting Unavailable RAYO, RACHEL Referring Unavailable Issa Gonzales Attending Unavailable sIsa Gonzales Admitting Unavailable Issa Gonzales Admitting Unavailable Issa Gonzales Attending Unavailable Issa Gonzales Referring Unavailable PUNEET PAYTON E Attending Unavailab negra TATAPUNEET ORTIZNIFER E Admitting Unavailab negra [place] ORTIZ JESSICA E Attending Unavailab le TATA JESSICA E Attending Unavailable PUNEET Duron Attending Unavailabl e PUNEET Duron Admitting Unavailabl e RAYO, RACHEL Referring Unavailable PUNEET Duron Admitting Unavailabl e PUNEET Duron Attending Unavailabl e Allergies Allergy Classification Reported Allergen(s) Allergy Type Date of Onset Reaction(s) Facility Angiotensin 2 Receptor Blockers (ARB) (2 sources) candesartan Drug Allergy 09-04-19 24 Other [facility] avocado allergenic extract (1 source) avocado allergenic extract Drug Allergy 02-24-19 80 Respiratory depression, Shortness of breath, Wheezing [facility] avocado oil (1 source) avocado oil Drug Allergy 10-16-19 24 [facility] Baclofen (20 sources) Baclofen; Translations: [baclofen] Drug Allergy 01-18-20 17 Other (See Comments), Unknown, Myalgia [facility] Benzodiazepines (20 sources) diazePAM; Translations: [Valium TABS] Drug Allergy 09-28-19 18 Other (See Comments), Other, Unknown [facility] Calcium Channel Blockers (2 sources) dilTIAZem Drug Allergy 09-04-19 24 Other [facility] Work Phone: Cephalosporins (antibiotic) (2 sources) cefdinir Drug Allergy 09-04-19 24 Other [facility] Work Phone: Chocolate (20 sources) Chocolate Food Allergy 06-02-19 24 Headache [id number] 170 DO Work Phone: chocolate allergenic extract (1 source) chocolate allergenic extract Drug Allergy 01-03-20 23 Headache [facility] Work Phone: Glutamate (1 source) Glutamate Drug Allergy 03-24-20 23 Headache, Hives, Shortness of breath [facility] Work Phone: Iodine (and Iodine containting drugs) (2 sources) Iodine Drug Allergy 06-22-19 24 Hives, Unknown [facility] Work Phone: NSAIDs (20 sources) Indomethacin; Translations: [Indocin CAPS] Drug Allergy 01-18-20 17 Other (See Comments), Rash, Unknown, Hives [facility] Penicillins (antibiotic) (6 sources) Penicillins Drug Allergy 01-18-20 17 Other (See Comments), Rash, Unknown, Hives [facility] Pollen (2 sources) Grass pollen Substance Allergy 03-24-20 23 Cough, Dermatitis, Runny nose, Shortness of breath, Wheezing [facility] Work Phone: Propranolol (9 sources) Propranolol; Translations: [propranolol] Drug Allergy 10-28-19 19 Rash, Syncope [facility] Quinolones (antibiotic) (20 sources) Ciprofloxacin; Translations: [Cipro TABS] Drug Allergy 01-18-20 17 Rash, Swelling [facility] Sulfonamides (antibiotic) (20 sources) Sulfonamides (Antibiotic); Translations: [Sulfa Drugs] Drug Allergy 09-28-19 18 Other (See Comments), Other, Rash [facility] Unclassified (20 sources) Other; Translations: [OTHER] Allergy to substance (finding) 08-19-19 08 Unknown [facility] Repository Unclassified (20 sources) Lima Oil OIL; Translations: [Lima Oil OIL] Allergy to drug (finding) [address] Work Phone: Unclassified (20 sources) Penicillins [employer]; Translations: [Penicillins [employer]] Allergy to drug (finding) [address] Work Phone: (20 sources) baclofen; Translations: [BACLOFEN] Drug Allergy 01-18-20 17 AOF, Dizziness, Weakness, Weakness, anaphylaxis [facility] Repository (20 sources) ciprofloxacin; Translations: [CIPROFLOXACIN] Drug Allergy 01-18-20 17 SWELLING, Rash, Unknown [facility] Repository (20 sources) diazePAM; Translations: [DIAZEPAM] Drug Allergy 05-09-19 18 AOF, Unknown Reaction, Unknown Reaction, depression [facility] Repository (20 sources) indomethacin; Translations: [INDOMETHACIN] Drug Allergy 01-18-20 17 RASH, Hypotension, Hypotension, hives [facility] Repository (20 sources) Penicillins; Translations: [penicillins] Drug allergy (disorder) 07-25-19 07 Weal (disorder), Hives, Rash, Unknown [facility] Repository (20 sources) Sulfonamides (Antibiotic); Translations: [SULFA (SULFONAMIDE ANTIBIOTICS)] Drug allergy (disorder) 05-09-19 18 AOF, Unknown Reaction [facility] Repository (20 sources) avocado oil; Translations: [AVOCADO] Drug Allergy 02-24-19 80 Swelling [facility] Repository (3 sources) Baclofen Drug Allergy 01-17-20 16 [facility] Repository (3 sources) Cat dander extract Drug Allergy 07-21-19 17 [facility] Repository (3 sources) Ciprofloxacin Drug Allergy 05-15-19 15 [facility] Repository (3 sources) diazePAM Drug Allergy 09-10-19 13 [facility] Repository (20 sources) Grass pollen; Translations: [GRASS POLLEN] Drug allergy (disorder) 07-21-19 17 Cough, Dermatitis, Runny nose, Shortness of breath, Wheezing [facility] Repository (3 sources) Penicillins Drug allergy (disorder) 09-10-19 13 [facility] Repository (6 sources) Procyclidine; Translations: [Indocin] Drug Allergy 09-10-19 13 [facility] Repository (20 sources) Propranolol; Translations: [PROPRANOLOL] Drug Allergy 04-26-20 18 Hypotension [facility] Repository (3 sources) Sulfonamides (Antibiotic) Drug allergy (disorder) 04-26-20 18 [facility] Repository (20 sources) pine oil; Translations: [PINE OIL] Drug allergy (disorder) 07-21-19 17 Unknown [facility] Repository (20 sources) Baclofen; Translations: [baclofen] Drug Allergy 01-18-20 17 Other (See Comments), anaphylaxis, Asthenia (finding), Unknown, Myalgia [place], [place] (20 sources) Ciprofloxacin; Translations: [Cipro TABS] Drug Allergy 01-18-20 17 Rash, Weal (disorder), Swelling [place], [place] (20 sources) diazePAM; Translations: [Valium TABS] Drug Allergy 05-09-19 18 Other (See Comments), Other, Unknown, Shortness of breath [place] (20 sources) Indomethacin; Translations: [indomethacin] Drug Allergy 01-18-20 17 Other (See Comments), hives, Eruption of skin (disorder), Weal (disorder), Unknown, Rash [place], [place] (20 sources) Penicillins Propensity to adverse reactions to drug 01-18-20 17 Other (See Comments) [place] (20 sources) Propranolol; Translations: [propranolol] Drug Allergy 10-28-19 19 Rash, Low blood pressure (disorder), Syncope [place] (20 sources) Sulfonamides (Antibiotic) Propensity to adverse reactions to drug 09-28-19 18 Other (See Comments) [place], [place] (20 sources) Chocolate; Translations: [CHOCOLATE] allergy to substance 05-17-19 19 Headache [facility] Repository (20 sources) Sulfonamides (Antibiotic); Translations: [Sulfa Drugs] drug allergy Eruption of skin (disorder) [facility] (20 sources) Animal dander - Cats allergy to substance IW-Udxlpsiegp-U sanjiv Work Phone: (20 sources) Grass allergy to substance QR-Hrewyvrcla-R sanjiv Work Phone: (20 sources) Indomethacin; Translations: [Indocin CAPS] Drug Allergy ND-Hggyqqmjsl-Y [place] 2100 DO Work Phone: (20 sources) Contrast media Allergy to substance (finding) MG-Pulm Sleep-[place] [address] [place] Work Phone: (20 sources) candesartan; Translations: [candesartan] Drug Allergy 01-15-20 [facility] (20 sources) cefdinir; Translations: [cefdinir] Drug Allergy 01-11-20 20 [facility] Comment on above: Onset Date: 01/11/20 (20 sources) Chocolate; Translations: [chocolate flavor] Allergy to substance 07-21-19 17 Headache [facility] (20 sources) dilTIAZem; Translations: [diltiazem] Drug Allergy 01-15-20 22 [facility] (20 sources) Penicillin V Drug Allergy 07-22-19 24 rash [facility] (20 sources) Iodine; Translations: [iodine] Drug Allergy 07-25-19 07 Weal (disorder), Hives, Unknown [facility] (16 sources) avocado oil Drug Allergy Unknown [facility] Other (20 sources) Substance with sulfonamide structure and antibacterial mechanism of action (substance) Drug allergy 09-28-19 18 Other, Rash [facility] Other (20 sources) Monosodium glutamate; Translations: [MONOSODIUM GLUTAMATE] Drug allergy 03-24-20 23 Unknown, Hives [facility] (16 sources) Chocolate Natural & Artifical Drug allergy Unknown [facility] Other (16 sources) Grass Pollen Standardized Ext Drug allergy Unknown [facility] Other (1 source) Ciprofloxacin; Translations: [CIPROFLOXACIN (BULK)] Drug Allergy 06-10-19 [facility] Repository (1 source) Indomethacin; Translations: [INDOMETHACIN SODIUM] Drug Allergy 07-25-19 [facility] Repository (13 sources) Aspartame; Translations: [ASPARTAME] Drug Allergy 01-27-20 Headache (finding) [facility] Rep[facility] (1 source) Misc-Food; Translations: [Misc-Food] Food allergy (disorder) [facility] (1 source) Iodine / Sodium Iodide Drug Allergy Unknown [facility] Other (7 sources) Penicillin G Benzathine & Proc Drug allergy Unknown [facility] Other (7 sources) Sulf-10 Drug allergy Unknown [facility] Other (1 source) Allergies Reconciled Propensity to adverse reactions Unknown [facility] Other (1 source) patient allergy list reviewed by nurse or physicia Propensity to adverse reactions 09-12-19 Comment:Done [facility] Other (20 sources) chocolate allergenic extract; Translations: [COCOA] Drug Allergy 01-03-20 23 Headache [facility] Work Phone: (17 sources) Penicillins Drug Intolerance 01-18-20 17 Unknown, Rash, Hives [facility] Work Phone: (20 sources) avocado allergenic extract Drug Allergy 02-24-19 80 Respiratory depression, Shortness of breath, Wheezing [facility] Work Phone: (20 sources) Glutamate Drug Allergy 03-24-20 23 Headache, Hives, Shortness of breath [facility] Work Phone: (20 sources) Penicillin G Benzathine; Translations: [penicillin G benzathine] Allergy to substance 07-22-19 24 Hives [facility] (6 sources) Penicillin; Translations: [penicillins] Drug Allergy Weal (disorder) [facility] (6 sources) Sulfonamide; Translations: [sulfa drugs] Drug allergy Eruption of skin (disorder) [facility] (9 sources) MSG (monosodium glutamate); Translations: [MSG (monosodium glutamate)] Drug allergy Paralysis (finding) [facility] (9 sources) Aspartame Drug Allergy 05-11-19 Headache [facility] Work Phone: (5 sources) Penicillins Drug Allergy 01-18-20 17 Hives, Rash, Unknown [facility] Work Phone: (1 source) avocado oil Drug Allergy 07-08-19 25 [facility] Repository (1 source) Grass pollen Drug allergy (disorder) 07-08-19 [facility] Repository (1 source) Iodine Drug Allergy 07-08-19 25 [facility] Repository (1 source) Penicillin Drug Allergy 07-08-19 25 [facility] Repository (1 source) Propranolol Drug Allergy 07-08-19 [facility] Repository (1 source) monosodium glutamate Drug allergy (disorder) 07-08-19 [facility] Repository Medications Current Medications Medication Drug Class(es) Dates Sig (Normalized) Sig (Original) Aimovig 140 Dose (10 sources) Aimovig 140 Dose Active amitriptyline hydrochloride 100 mg oral tablet (20 sources) Tricyclic Antidepressant Start: 08-24-2024 take 1 tablet by mouth once daily at bedtime amitriptyline (Elavil) 100 mg tablet Indications: Chronic migraine without aura without status migrainosus, not intractable TAKE 1 TABLET BY MOUTH EVERYDAY AT BEDTIME 90 tablet 1 08/24/2024 Active Start: 03-14-2023 End: 04-08-2023 take 1 tablet by mouth once daily amitriptyline (Elavil) 75 mg tablet Take 1 tablet (75 mg) by mouth once daily. as directed 0 03/14/2023 04/08/2023 Discontinued (Therapy completed) Start: 07-29-2021 take 50 mg by mouth once daily at bedtime Amitriptyline Active 50 MG PO Daily at bedtime July 29, 2021 9:27am Start: 07-29-2021 End: 06-30-2023 Amitriptyline 75 mg tablet Discontinued 25 MG PO Daily at bedtime July 29, 2021 12:00am June 30, 2023 3:32pm Start: 07-29-2021 End: 06-30-2023 take 25 mg by mouth once daily at bedtime Amitriptyline Discontinued 25 MG PO Daily at bedtime July 29, 2021 12:00am June 30, 2023 3:32pm Start: 07-29-2021 End: 07-29-2021 Amitriptyline Discontinued M G TABLET July 29, 2021 12:00am July 29, 2021 11:27am Start: 08-03-2018 End: 08-17-2024 take 1 tablet by mouth once daily Amitriptyline 100 mg tablet Active 100 MG PO Daily June 30, 2023 1:00am Start: 08-03-2018 take 1 tablet by trudi th once daily amitriptyline (ELAVIL) 50 MG tablet Take 1 tablet by mouth nightly 30 tablet 5 03/14/2019 Active Start: 08-03-2018 End: 07-29-2021 Amitriptyline 75 mg tablet Discontinued MG TABLET July 29, 2021 12:00am July 29, 2021 11:27am Start: 08-03-2018 take 1 tablet by trudi th once daily at bedtime Amitriptyline HCl - 25 MG Oral Tablet TAKE 1 TABLET BY MOUTH EVERYDAY AT BEDTIME Quantity: 30 Refills: 2 Jodie Matthews MD Start : 03-Aug-2018 Active Start: 01-16-2018 End: 03-24-2023 take 0.5 tablet by mouth once daily at bedtime amitriptyline (Elavil) 100 mg tablet Take 0.5 tablets (50 mg) by mouth once daily at bedtime. 0 01/16/2018 03/24/2023 Discontinued (Therapy completed) Start: 01-16-2018 amitriptyline (ELAVIL) 100 MG tablet Take 50 mg by mouth nightly 0 01/16/2018 Active Amlodipine (20 sources) Dihydropyridine Calcium Channel Erika Start: 12-04-2023 amlodipine Refills(s ) 0 Start Date: 12/04/23 Status: Ordered Start: 05-10-2019 End: 01-14-2022 take 1 tablet by mouth once daily amLODIPine (Norvasc) 5 mg tablet Take 1 tablet (5 mg) by mouth once daily. 08/02/2019 Active take 1 tablet by trudi th once daily amLODIPine (NORVASC) 5 MG tablet Take 5 mg by mouth daily 0 Active atorvastatin 40 mg oral tablet (20 sources) HMG-CoA Reductase Inhibitor Start: 12-18-2023 take 1 tablet by mouth once daily Atorvastatin 40 mg tablet Active 0 .ROUTE .COMPLEX December 18, 2023 7:53am TAKE 1 TABLET BY MOUTH EVERY DAY Start: 05-19-2022 atorvastatin 4 0 mg Tab BID, Refills(s) 0 Start Date: 05/19/22 Status: Ordered Start: 11-11-2018 End: 12-18-2023 take 1 tablet by mouth once daily Atorvastatin 40 mg tablet Discontinued 40 MG PO Daily January 02, 2022 12:00am December 18, 2023 7:53am azithromycin 500 mg oral tablet (20 sources) Macrolide Antimicrobial Start: 03-08-2024 End: 09-14-2024 azithromycin (Zithromax) 500 mg tablet Indications: Asthma with chronic obstructive pulmonary disease (COPD) (Multi) Take 1 pill Thursday, Thursday and Thursday 12 tablet 5 09/14/2024 Active Start: 10-26-2023 End: 12-02-2023 Azithromycin 250 mg tablet Discontinued 0 PO .COMPLEX October 26, 2023 12:00am December 02, 2023 10:11am For 250 mg dose pack: take 500 mg today (day 1), then 250 mg for 4 days (days 2-5) PO Start: 10-26-2023 End: 12-02-2023 Azithromycin Discontinued 0 PO .COMPLEX October 26, 2023 12:00am December 02, 2023 10:11am For 250 mg dose pack: take 500 mg today (day 1), then 250 mg for 4 days (days 2-5) PO Start: 10-26-2023 Azithromycin A ctive 0 PO .COMPLEX 6 October 26, 2023 12:00am For 250 mg dose pack: take 500 mg today (day 1), then 250 mg for 4 days (days 2-5) PO Start: 11-06-2020 End: 11-22-2020 take 1 tablet by mouth once daily Azithromycin 500 MG Oral Tablet TAKE 1 TABLET DAILY UNTIL FINISHED. Quantity: 10 Refills: 0 Ordered: 06-Nov-2020 Courtney Brown MD Start : 06-Nov-2020 End : 22-Nov-2020 Complete Start: 09-24-2020 take 1 tablet by trudi th once daily Azithromycin 500 MG Oral Tablet TAKE 1 TABLET DAILY UNTIL FINISHED. Quantity: 10 Refills: 0 Ordered: 24-Sep-2020 Courtney Brown MD Start : 24-Sep-2020 Active Start: 12-26-2018 End: 12-30-2018 azithromycin (ZITHROMAX Z-PA K) 250 MG tablet Take 2 tablets (500 mg) on Day 1, and then take 1 tablet (250 mg) on days 2 through 5. 1 packet 0 12/26/2018 12/30/2018 Active 1 ml benralizumab 30 mg/ml auto-injector (20 sources) Interleukin-5 Receptor alpha-directed Cytolytic Antibody Start: 01-01-2023 End: 06-22-2023 Fasenra Pen 30 mg/mL injection Start: 07-29-2021 End: 06-02-2023 Benralizumab (Fasenra) 30 mg /mL syringe Discontinued 30 MG SUBCUT As Directed July 29, 2021 12:00am June 02, 2023 12:29pm Start: 12-06-2020 End: 04-01-2021 Fasenra 30 MG/ML Subcutaneou s Solution Prefilled Syringe INJECT 1 SYRINGE UNDER THE SKIN EVERY 8 WEEKS. Quantity: 1 Refills: 5 Ordered: 24-Feb-2022 Courtney Brown MD Start : 06-Dec-2020 Active PA [id number] 03/05/2022-03/04/2023 Start: 11-12-2017 End: 03-24-2023 Fasenra Prefilled Syringe 30 mg/mL subcutaneous solution 30 mg, SubCutaneous, Every 56 days, Refills(s) 0 Start Date: 11/27/22 Status: Ordered Start: 11-12-2017 benralizumab ( FASENRA) 30 MG/ML SOSY injection Indications: given every 2 months Indications: given every 2 months 0 11/12/2017 Active Biotene Oral Balance oral ge l (3 sources) Start: 12-04-2023 Biotene Oral B alance oral gel Refill(s) 0 Start Date: 12/04/23 Status: Ordered Biotin (20 sources) Start: 12-04-2023 biotin Refills (s) 0 Start Date: 12/04/23 Status: Ordered Start: 06-30-2023 Biotin 10,000 mcg tablet,disintegrating Active 93960 MCG PO As Directed June 30, 2023 1:00am Start: 12-06-2020 biotin 1,000 m cg tablet,chewable Chew 1 tablet once daily. 12/06/2020 Active Start: 12-06-2020 Biotin 1000 MC G Oral Tablet Chewable Quantity: 0 Refills: 0 Ordered: 06-Dec-2020 DO Start : 06-Dec-2020 Active Biotin 25743 MCG as directed Orally Active onabotulinumtoxina 100 unt injection (20 sources) Acetylcholine Release Inhibitor Start: 08-17-2024 End: 08-17-2024 onabotulinumtoxinA (Botox) injection 200 Units Start: 08-17-2024 End: 08-17-2024 inject 200 [IU] by intramuscular injection once 200 Units, intramuscular, Once, On Thu08/17/24 at 1615, For 1 dose Start: 05-11-2024 End: 05-11-2024 onabotulinumtoxinA (Botox) i njection 200 Units Start: 05-11-2024 End: 05-11-2024 inject 200 [IU] by intramuscular injection once 200 Units, intramuscular, Once, On Thu05/11/24 at 1400, For 1 dose Start: 05-11-2024 End: 05-11-2024 inject 100 [IU] by intramuscular injection once as needed 100 Units, intramuscular, Once PRN Procedure, Starting on Thu05/11/24 at 1332, For 1 dose Start: 01-11-2024 End: 01-11-2024 onabotulinumtoxinA (Botox) i njection 200 Units Start: 01-11-2024 End: 01-11-2024 inject 200 [IU] by intramuscular injection once 200 Units, intramuscular, Once, On Thu01/11/24 at 1500, For 1 dose Start: 12-04-2023 inject 200 [IU] by intramuscular injection every three months Botox 200 units injection 200 unit(s), IntraMuscular, q3mo, # 1 EA, Refills(s) 0 Start Date: 12/04/23 Status: Ordered Start: 10-12-2023 End: 10-12-2023 onabotulinumtoxinA (Botox) i njection 200 Units Start: 10-12-2023 End: 10-12-2023 inject 200 [IU] by intramuscular injection once 200 Units, intramuscular, Once, On Thu10/12/23 at 1615, For 1 dose Start: 07-15-2023 End: 07-15-2023 onabotulinumtoxinA (Botox) i njection 200 Units Start: 06-30-2023 End: 07-07-2024 Onabotulinumtoxina 200 unit recon soln Discontinued 200 UNIT INTRADERMA As Directed June 30, 2023 1:00am July 07, 2024 11:44am Start: 06-30-2023 End: 08-17-2024 onabotulinumtoxinA (Botox) 2 00 unit injection 200 Units. 06/30/2023 08/17/2024 Discontinued (Therapy completed) Start: 04-15-2023 End: 04-15-2023 onabotulinumtoxinA (Botox) i njection 200 Units Start: 04-15-2023 End: 04-15-2023 onabotulinumtoxinA (Botox) i njection 200 Units Start: 09-29-2018 Botox 200 UNIT Injection Solution Reconstituted Injection 200 units by to head and neck every 90 days Quantity: 1 Refills: 4 Jodie Matthews MD Start : 29-Sep-2018 Active Botox 200 UNIT a s directed Injection Active Breztri Aerosphere inhalation aerosol (15 sources) Start: 2023 take 2 puff(s) by inhalation twice daily Breztri Aerosphere inhalation aerosol 2 puff(s), Inhalation, BID, Refill(s) 0 Start Date: 01/19/23 Status: Ordered Start: 2023 Breztri Aerosp here inhalation aerosol Refill(s) 0 Start Date: 01/19/23 Status: Ordered Start: 11-27-2022 take 2 puff(s) by in halation twice daily Breztri Aerosphere inhalation aerosol 2 puff(s), Inhalation, BID, Refill(s) 0 Start Date: 11/27/22 Status: Ordered 120 actuat budesonide 0.16 mg/actuat / formoterol fumarate 0.0048 mg/actuat / glycopyrrolate 0.009 mg/actuat metered dose inhaler (20 sources) Corticosteroid, beta2-Adrenergic Agonist Start: 06-30-2023 take 1 puff(s) by inhalation twice daily Nvchqdmxvh-Fobqdwpj-Wmbrpwyhuy 160-9-4.8 mcg/actuation HFA aerosol inhaler Active 2 PUFF INHALATION Twice daily June 30, 2023 1:00am Start: 06-25-2023 take 2 puff(s) by inhalation twice daily sosebklupu-gjusbqvg-enkgntzzvd (Breztri Aerosphere) 160-9-4.8 mcg/actuation HFA aerosol inhaler Indications: Asthma, severe persistent, poorly-controlled, with acute exacerbation (Multi) Inhale 2 puffs 2 times a day. 10.7 g 11 06/25/2023 Active Start: 06-22-2023 budesonide-gly copyr-formoterol (Breztri Aerosphere) 160-9-4.8 mcg/actuation HFA aerosol inhaler Indications: Asthma, severe persistent, poorly-controlled, with acute exacerbation Refill(s) 0 10.7 g 11 06/22/2023 Active Start: 2023 End: 06-22-2023 eorrtzpumb-gxpwgzqi-xnmwvdyh ol (Breztri Aerosphere) 160-9-4.8 mcg/actuation HFA aerosol inhaler Refill(s) 0 0 2023 06/22/2023 Discontinued (Reorder) Start: 11-11-2022 End: 03-24-2023 take 2 puff(s) by inhalation twice daily Breztri Aerosphere 160-9-4.8 MCG/ACT Inhalation Aerosol two puffs bid and gargle after use Quantity: 1 Refills: 11 Ordered: 11-Nov-2022 Rich Magana MD Start : 11-Nov-2022 Active take 2 puff(s) by inhalation twice daily Breztri Aerosphere 160-9-4.8 MCG/ACT 2 puffs Inhalation Twice a day Active Catheters (SELF-CATH PLUS STRAIGHT TIP) MISC (20 sources) Start: 11-10-2018 Catheters (SELF-CATH PLUS STRAIGHT TIP) MISC Prelube Cure ultra M 14 F Straight Cath QID 120 each 1 11/10/2018 Active celecoxib 200 mg oral capsule (20 sources) Nonsteroidal Anti-inflammatory Drug Start: 06-30-2023 take 400 mg by mouth twice daily Celecoxib Active 400 MG PO Twice daily June 30, 2023 3:26pm Start: 06-22-2023 End: 08-10-2024 take 2 capsules by mouth twice daily celecoxib (CeleBREX) 200 mg capsule Indications: Chronic migraine without aura without status migrainosus, not intractable TAKE 2 CAPSULES BY MOUTH TWICE A DAY 360 capsule 1 08/10/2024 Active Start: 05-19-2022 End: 06-22-2023 take 1 capsule by mouth four times daily celecoxib 200 mg Cap 200 mg = 1 cap(s), Oral, QID, Refills(s) 0 Start Date: 05/19/22 Status: Ordered Start: 07-30-2021 End: 06-30-2023 take 1 capsule by mouth once daily Celecoxib 200 mg capsule Discontinued 200 MG PO Daily July 30, 2021 9:26am June 30, 2023 3:31pm Start: 07-29-2021 End: 07-30-2021 take 2 capsules by mouth twice daily Celecoxib 200 mg capsule Discontinued 400 MG PO Twice daily July 29, 2021 12:00am July 30, 2021 9:27am Start: 07-29-2021 End: 07-30-2021 take 400 mg by mouth twice daily Celecoxib Discontinue d 400 MG PO Twice daily July 29, 2021 12:00am July 30, 2021 9:27am Start: 12-13-2012 End: 05-16-2021 take 2 capsules by mouth twice daily Celecoxib 200 MG Oral Capsule Take 2 capsules by mouth twice a day Quantity: 120 Refills: 6 Ordered: 03-Sep-2022 Jodie Matthews MD Start : 13-Dec-2012 Active cloNIDine (20 sources) Central alpha-2 Adrenergic Agonist Start: 12-04-2023 clonidine Oral, Lamont y, Refills(s) 0 Start Date: 12/04/23 Status: Ordered Start: 12-04-2023 clonidine Refi lls(s) 0 Start Date: 12/04/23 Status: Ordered Start: 11-10-2018 End: 01-14-2022 take 1 tablet by mouth twice daily cloNIDine (Catapres) 0.1 mg tablet Take 1 tablet (0.1 mg) by mouth 2 times a day. 06/17/2019 Active cyclobenzaprine hydrochloride 10 mg oral tablet (20 sources) Muscle Relaxant Start: 06-05-2023 End: 08-17-2024 take 1 tablet by mouth once daily at bedtime Cyclobenzaprine 10 mg tablet Active 10 MG PO Daily at bedtime June 30, 2023 1:00am Start: 09-09-2022 Cyclobenzaprin e HCl - 10 MG Oral Tablet Quantity: 0 Refills: 0 Ordered: 09-Sep-2022 Stephanie BHATTI, Courtney Rowan Start : 09-Sep-2022 Active Start: 05-19-2022 take 1 tablet by trudi th at bedtime as needed for muscle spasms cyclobenzaprine 10 mg Tab 10 mg = 1 tab(s), Oral, Bedtime, PRN for spasm, # 90 tab(s), Refills(s) 0, Pharmacy: [facility]/pharmacy #[id number], 175, cm, 06/05/23 14:54:00 EST, Height/Length Dosing, 76.7, kg, 06/05/23 14:54:00 EST, Weight Dosing Start Date: 06/05/23 Status: Ordered Flexeril Active dextromethorphan hydrobromide 2 mg/ml / guaiFENesin 20 mg/ml oral solution (3 sources) Uncompetitive Z-xlnzfe-F-aspartate Receptor Antagonist, Sigma-1 Agonist Start: 03-28-2019 dextromethorphan-guaiFENesin (ROBITUSSIN-DM) 10-100 MG/5ML syrup Indications: Pneumonia of right middle lobe due to infectious organism (HCC) Take 10 mLs by mouth every 4 hours as needed for Cough 355 mL 0 03/28/2019 Active doxycycline hyclate 100 mg oral capsule (20 sources) Tetracycline-class Drug Start: 02-16-2024 End: 03-01-2024 doxycycline (Vibramycin) 100 mg capsule Indications: Asthma with chronic obstructive pulmonary disease (COPD) (Multi) Take 1 capsule (100 mg) by mouth 2 times a day for 14 days. Take with at least 8 ounces (large glass) of water, do not lie down for 30 minutes after 28 capsule 02/16/2024 03/01/2024 Active Start: 07-30-2021 End: 01-02-2022 take 1 tablet by mouth twice daily Doxycycline Hyclate 100 mg tablet Discontinued 100 MG PO Twice daily 10 July 30, 2021 12:00am January 02, 2022 2:01pm Start: 08-25-2020 End: 09-01-2020 take 1 tablet by mouth twice daily doxycycline hyclate (VIBRA-TABS) 100 MG tablet Take 1 tablet by mouth 2 times daily for 7 days 14 tablet 0 08/25/2020 09/01/2020 Active Start: 05-07-2019 End: 05-17-2019 take 1 tablet by mouth twice daily doxycycline hyclate (VIBRA-TABS) 100 MG tablet Take 1 tablet by mouth 2 times daily for 10 days 20 tablet 0 05/07/2019 05/17/2019 ensifentrine (Ohtuvayre) 3 mg/2.5 mL suspension for nebulization (9 sources) Start: 03-10-2024 take 3 mg by inhalation twice daily ensifentrine (Ohtuvayre) 3 mg/2.5 mL suspension for nebulization Indications: Asthma with chronic obstructive pulmonary disease (COPD) (Multi) Inhale 3 mg 2 times a day. 150 mL 3 03/10/2024 Active Start: 03-08-2024 End: 03-08-2024 take 3 mg by inhalation twice daily ensifentrine (Ohtuvayre) 3 mg/2.5 mL suspension for nebulization Indications: Asthma with chronic obstructive pulmonary disease (COPD) (Multi) Inhale 3 mg 2 times a day. 150 mL 3 03/08/2024 03/08/2024 Discontinued Start: 03-08-2024 take 3 mg by inhalat ion twice daily ensifentrine (Ohtuvayre) 3 mg/2.5 mL suspension for nebulization Indications: Asthma with chronic obstructive pulmonary disease (COPD) (Multi) Inhale 3 mg 2 times a day. 150 mL 3 03/08/2024 Active Erenumab-aooe (AIMOVIG) 140 MG/ML SOAJ (20 sources) Start: 03-14-2019 Erenumab-aooe (AIMOVIG) 140 MG/ML SOAJ Indications: Pt states this injection is done on the 16th of every month Inject 1 Dose into the skin every 30 days Indications: Pt states this injection is done on the 16th of every month 1 pen 5 03/14/2019 Active Erenumab-aooe (A IMOVIG) 140 MG/ML SOAJ Indications: Pt states this injection is done on the 16th of every month Inject 1 Dose into the skin Indications: Pt states this injection is done on the 16th of every month 0 Active Erenumab-aooe (A IMOVIG) 140 MG/ML SOAJ Inject 1 Dose into the skin 0 Active fluticasone propionate 0.05 mg/actuat metered dose nasal spray (20 sources) Corticosteroid Start: 05-19-2022 fluticasone Na dulce 0.05 mg/inh Coy Refill(s) 0 Start Date: 05/19/22 Status: Ordered Start: 07-29-2021 End: 06-30-2023 Fluticasone Propionate 50 mc g/actuation spray,suspension Discontinued 50 MCG INTRANASAL Daily July 29, 2021 12:00am June 30, 2023 3:38pm Start: 2019 take 2 spray(s) nasa l route once daily fluticasone (Flonase) 50 mcg/actuation nasal spray Administer 2 sprays into each nostril once daily. 2019 Active Start: 2019 take 2 spray(s) nasa l route once daily Fluticasone Propionate 50 MCG/ACT Nasal Suspension SPRAY 2 SPRAYS INTO EACH NOSTRIL EVERY DAY Quantity: 16 Refills: 5 Ordered: 01-Jul-2019 Stephanie BHATTI, Courtney Rowan Start : 19-Jan-2019 Active take 1 spray(s) nasa l route once daily fluticasone (FLONASE) 50 MCG/ACT nasal spray Indications: each nostril 1 spray by Nasal route daily 0 Active take 2 spray(s) nasa l route once daily Fluticasone Propionate 50 MCG/ACT Nasal Suspension USE 2 SPRAYS IN EACH NOSTRIL DAILY Quantity: 1 Refills: 5 Courtney Brown MD Active 9.9 ML Bottle 30 actuat fluticasone furoate 0.1 mg/actuat / vilanterol 0.025 mg/actuat dry powder inhaler (10 sources) Corticosteroid, beta2-Adrenergic Agonist Start: 09-08-2020 End: 09-15-2020 take 1 puff(s) by inhalation once daily fluticasone-vilanterol (BREO ELLIPTA) 100-25 MCG/INH AEPB inhaler Inhale 1 puff into the lungs daily for 7 days 7 each 0 09/08/2020 09/15/2020 Active Start: 06-23-2017 End: 12-21-2018 take 1 puff(s) by inhalation once daily Breo Ellipta 200-25 MCG/INH Inhalation Aerosol Powder Breath Activated INHALE 1 PUFFS Daily Quantity: 1 Refills: 5 Courtney Brown MD Start : 23-Jun-2017 Active 60 Each Pack Fluticasone Furoate-Vilanterol (BREO ELLIPTA IN) (3 sources) take 62.5 mg by inhalation once daily Fluticasone Furoate-Vilanterol (BREO ELLIPTA IN) Indications: one puff Inhale 62.5 mg into the lungs daily 0 Active Wgafvipgqvb-Xhioubxud-Wqdtzz er (20 sources) Start: Uyoxingynyb-Oqpqpiozu-Aglbc ter (Trelegy Ellipta) 200-62.5-25 mcg Blister With Device Active 1 INH INHALATION Daily July 29, 2021 11:31am Start: 07-29-2021 End: 01-02-2022 Mnwdxvetdzi-Tjwudzgwe-Bxjvwn er (Trelegy Ellipta) 200-62.5-25 mcg Blister With Device Discontinued 1 INH INHALATION Daily July 28, 2021 11:00pm January 02, 2022 1:00pm Start: 07-29-2021 End: 01-02-2022 Kzzqqemlswf-Srdpkuihv-Xcfduq er (Trelegy Ellipta) 200-62.5-25 mcg Blister With Device Discontinued 1 INH INHALATION Daily July 29, 2021 12:00am January 02, 2022 2:00pm 60 actuat formoterol fumarate 0.005 mg/actuat / mometasone furoate 0.2 mg/actuat metered dose inhaler (20 sources) Corticosteroid, beta2-Adrenergic Agonist Start: 04-21-2019 take 2 puff(s) by inhalation twice daily mometasone-formoterol (DULERA) 200-5 MCG/ACT inhaler Inhale 2 puffs into the lungs 2 times daily 1 Inhaler 5 04/21/2019 Active Start: 12-21-2018 take 2 puff(s) by in halation twice daily mometasone-formoterol (DULERA) 200-5 MCG/ACT inhaler Inhale 2 puffs into the lungs 2 times daily 1 Inhaler 5 12/21/2018 Active 1 ml galcanezumab-gnlm 120 m g/ml auto-injector (20 sources) Start: 05-31-2024 End: 07-07-2024 Galcanezumab-Gnlm (Emgality Pen) 120 mg/mL pen injector Active MG SUBCUT .q 3 weeks July 07, 2024 11:41am Start: 12-07-2023 End: 07-07-2024 galcanezumab (Emgality Pen) 120 mg/mL auto-injector Indications: Chronic migraine without aura, intractable, with status migrainosus Inject 120 mg (1 pen) under the skin every 28 (twenty-eight) days. 1 each 6 09/07/2024 4:21 PM EDT 06/07/2024 Active Gamunex-C 10% injectable solution 5 gram (20 sources) Start: 08-07-2022 Gamunex-C 10% injectable solution 5 gram Refills(s) 0 Start Date: 08/07/22 Status: Ordered guaiFENesin 20 mg/ml oral solution (11 sources) Start: 01-13-2019 take 10 mL by mouth three times daily as needed for cough guaiFENesin (ROBITUSSIN) 100 MG/5ML syrup Take 10 mLs by mouth 3 times daily as needed for Cough 1 Bottle 5 01/13/2019 Active Home Oxygen (16 sources) Start: 11-27-2022 Home Oxygen 2 L/min, Bedtime, Refill(s) 0 Start Date: 11/27/22 Status: Ordered 400 ml immunoglobulin g, human 100 mg/ml injection (20 sources) Human Immunoglobulin G Start: 06-30-2023 Immune Globul G-Gly-Iga Avg 46 (Gamunex-C) 40 gram/400 mL (10 %) solution Active SUBCUT June 30, 2023 1:00am Start: 07-29-2021 End: 01-02-2022 Immune Globul G-Gly-Iga Avg 46 (Gamunex-C) 20 gram/200 mL (10 %) solution Discontinued ML SOLUTION July 29, 2021 12:00am January 02, 2022 2:01pm Start: 03-20-2021 Gamunex-C 40 g chon/400 mL (10 %) solution 09/05/2022 Active Start: 03-20-2021 Gamunex-C 40 G M/400ML Injection Solution 40 grams IV every 28 days +/-5 Quantity: 0 Refills: 0 Ordered: 20-Mar-2021 DO Start : 20-Mar-2021 Active Gamunex Not-Taki ng Gamunex Active 200 actuat levalbuterol 0.045 mg/actuat metered dose inhaler (20 sources) beta2-Adrenergic Agonist Start: 02-16-2024 take 1-2 puff(s) by inhalation every six hours for wheezing levalbuterol (Xopenex) 45 mcg/actuation inhaler Indications: Asthma with chronic obstructive pulmonary disease (COPD) (Multi) Inhale 1-2 puffs every 6 hours if needed for wheezing. 45 g 02/16/2024 Active Start: 12-30-2023 End: 08-17-2024 levalbuterol (Xopenex) 1.25 mg/3 mL nebulizer solution Indications: Asthma with chronic obstructive pulmonary disease (COPD) (Multi) Take 3 mL by nebulization every 8 hours if needed for wheezing. 72 mL 12/30/2023 08/17/2024 Discontinued (Therapy completed) Start: 12-30-2023 End: 02-16-2024 take 1-2 puff(s) by inhalation every six hours for wheezing levalbuterol (Xopenex) 45 mcg/actuation inhaler Indications: Asthma with chronic obstructive pulmonary disease (COPD) (Multi) Inhale 1-2 puffs every 6 hours if needed for wheezing. 15 g 12/30/2023 02/16/2024 Discontinued (Reorder) Start: 06-30-2023 levalbuterol ( Xopenex) 45 mcg/actuation inhaler Every 6 hours 06/30/2023 Active Start: 06-30-2023 take 1.25 mg by inha lation every eight hours Levalbuterol Hcl 1.25 mg/3 mL solution for nebulization Active 1.25 MG INHALATION Every 8 hours June 30, 2023 1:00am Start: 06-30-2023 take 1 puff(s) by in halation every six hours as needed Levalbuterol Tartrate 45 mcg/actuation HFA aerosol inhaler Active 1 PUFF INHALATION Every 6 hours as needed June 30, 2023 1:00am Start: 06-22-2023 End: 06-22-2023 take 2 puff(s) by inhalation every four hours for wheezing levalbuterol (Xopenex) 45 mcg/actuation inhaler Indications: Asthma, severe persistent, poorly-controlled, with acute exacerbation Inhale 2 puffs every 4 hours if needed for wheezing or shortness of breath. 15 g 11 06/22/2023 06/22/2023 Discontinued (Med List Cleanup) Start: 08-07-2022 levalbuterol 0 .63 mg, NEB, TID, PRN Shortness of breath or wheezing, Refills(s) 0 Start Date: 08/07/22 Status: Ordered Start: 05-19-2022 Xopenex 1.25 m g/0.5 mL Concentate mg mL, NEB, TID, Refills(s) 0 Start Date: 05/19/22 Status: Ordered Start: 07-29-2021 End: 01-02-2022 take 1.25 mg by inhalation every four hours as needed for dyspnea Levalbuterol Hcl (Xopenex) 1.25 mg/3 mL Solution For Nebulization Discontinued 1.25 MG INHALATION Q4H as needed for Dyspnea July 29, 2021 12:00am January 02, 2022 2:01pm Start: 07-29-2021 End: 01-02-2022 Levalbuterol Tartrate (Xopen ex Hfa) 45 mcg/actuation Hfa Aerosol Inhaler Discontinued 2 INH INHALATION Q4H as needed for Dyspnea July 29, 2021 12:00am January 02, 2022 2:00pm Start: 06-17-2021 End: 06-22-2023 take 2 puff(s) by inhalation every four hours for wheezing levalbuterol (Xopenex) 45 mcg/actuation inhaler Inhale 2 puffs every 4 hours if needed for wheezing or shortness of breath. 0 06/17/2021 06/22/2023 Discontinued (Reorder) Start: 06-17-2021 take 2 puff(s) by mo uth every four hours as needed Levalbuterol Tartrate 45 MCG/ACT Inhalation Aerosol INHALE 2 PUFFS BY MOUTH EVERY 4 HOURS NEEDED Quantity: 3 Refills: 0 Ordered: 10-Sep-2022 Courtney Brown MD Start : 17-Jun-2021 Active Start: 05-08-2020 take 1 dose by inhal ation every four hours Levalbuterol HCl - 1.25 MG/0.5ML Inhalation Nebulization Solution USE 1 VIAL Every 4 hours Quantity: 4 Refills: 3 Ordered: 14-Apr-2022 Courtney Brown MD Start : 08-May-2020 Active Start: 05-08-2020 take 2 puff(s) by in halation every four hours as needed Xopenex HFA 45 MCG/ACT Inhalation Aerosol INHALE 2 PUFFS EVERY 4 HOURS NEEDED Quantity: 2 Refills: 1 Ordered: 13-Sep-2020 Courtney Brown MD Start : 08-May-2020 Active Start: 05-08-2020 take 1 dose by inhal ation every four hours Levalbuterol HCl - 1.25 MG/0.5ML Inhalation Nebulization Solution USE 1 VIAL Every 4 hours Quantity: 4 Refills: 0 Courtney Brown MD Start : 08-May-2020 Active 30 Unit Plas Cont Start: 11-23-2019 Levalbuterol H Cl - 1.25 MG/3ML Inhalation Nebulization Solution USE 1 VIAL PER NEBULIZER EVERY 4 HOURS Quantity: 360 Refills: 3 Ordered: 28-Jul-2022 Stephanie BHATTI, Courtney Rowan Start : 23-Nov-2019 Active End: 06-22-2023 levalbuterol (Xopenex) 1.25 mg/3 mL nebulizer solution Take 1 ampule by nebulization every 4 hours if needed for wheezing. 0 06/22/2023 Discontinued (Med List Cleanup) take 1 puff(s) by in halation every six hours as needed Levalbuterol Tartrate 45 MCG/ACT 1 puff as needed Inhalation every 6 hrs Active take 3 mL by inhalat ion every eight hours as needed Xopenex 1.25 MG/3ML 3 mL as needed Inhalation every 8 hrs Active take 3 mL by inhalat ion every eight hours as needed Xopenex 1.25 MG/3ML 3 mL as needed Inhalation every 8 hrs Active levalbuterol (XO PENEX) 0.63 MG/3ML nebulization Take 1 ampule by nebulization every morning Pt to take as ONE every morning. 0 Active levalbuterol (XO PENEX) 0.63 MG/3ML nebulization Take 1 ampule by nebulization every 3-4 hours as needed for Wheezing 0 Active levalbuterol (XO PENEX) 1.25 MG/3ML nebulizer solution Take 1 ampule by nebulization every 4 hours as needed for Wheezing 0 Active levocetirizine dihydrochloride 5 mg oral tablet (3 sources) Histamine-1 Receptor Antagonist Start: 10-31-2019 take 0.5 tablet by mouth once daily levocetirizine (XYZAL) 5 MG tablet Indications: Seasonal allergic rhinitis due to pollen Take 0.5 tablets by mouth nightly 45 tablet 1 10/31/2019 Active losartan potassium 100 mg oral tablet (20 sources) Angiotensin 2 Receptor Erika Start: 02-04-2024 take 1 tablet by mouth once daily Losartan 100 mg tablet Active 0 .ROUTE .COMPLEX February 04, 2024 8:25am TAKE 1 TABLET BY MOUTH EVERY DAY Start: 02-04-2024 take 1 tablet by trudi th once daily Losartan Active 0 .ROUTE .COMPLEX February 04, 2024 8:25am TAKE 1 TABLET BY MOUTH EVERY DAY Start: 11-10-2023 End: 02-04-2024 take 1 tablet by mouth in the morning losartan (Cozaar) 100 mg tablet Take 1 tablet (100 mg) by mouth early in the morning.. 11/10/2023 Active Start: 06-30-2023 End: 11-10-2023 take 50 mg by mouth once daily Losartan Discontinued 5 0 MG PO Daily June 30, 2023 3:34pm November 10, 2023 12:04pm Start: 05-19-2022 losartan 25 mg Tab Refills(s) 0 Start Date: 05/19/22 Status: Ordered Start: 01-02-2022 End: 06-30-2023 take 4 tablets by mouth once daily Losartan 25 mg tablet Discontinued 100 MG PO Daily January 02, 2022 12:00am June 30, 2023 3:38pm Start: 01-02-2022 End: 06-30-2023 take 100 mg by mouth once daily Losartan Discontinued 100 MG PO Daily January 02, 2022 12:00am June 30, 2023 3:38pm Start: 07-29-2021 End: 01-02-2022 take 1 tablet by mouth once daily Losartan 25 mg tablet Discontinued 25 MG PO Daily July 29, 2021 12:00am January 02, 2022 1:51pm Start: 03-22-2021 End: 01-11-2024 take 2 tablets by mouth once daily Losartan 25 mg tablet Discontinued 50 MG PO Daily June 30, 2023 3:34pm November 10, 2023 12:04pm Start: 09-27-2019 take 1 tablet by trudi th once daily losartan (COZAAR) 100 MG tablet Indications: Essential hypertension TAKE 1 TABLET BY MOUTH EVERY DAY 90 tablet 1 09/27/2019 Active magnesium citrate (7 sources) Start: 12-04-2023 magnesium citr ate Oral, Daily, Refill(s) 0 Start Date: 12/04/23 Status: Ordered Start: 12-04-2023 magnesium citr ate Refill(s) 0 Start Date: 12/04/23 Status: Ordered magnesium oxide 400 mg oral tablet (13 sources) Start: 10-30-2020 magnesium oxid e (Mag-Ox) 400 mg tablet Take by mouth. 10/30/2020 Active meclizine hydrochloride 12.5 mg oral tablet (20 sources) Antiemetic Start: 12-07-2023 meclizine (Ant ivert) 12.5 mg tablet Indications: Dizziness Take 1 tablet (12.5 mg) by mouth if needed for dizziness. 30 tablet 3 12/07/2023 Active Start: 12-04-2023 meclizine 25 m g Tab PRN Dizziness, Refills(s) 0 Start Date: 12/04/23 Status: Ordered Start: 12-04-2023 meclizine 25 m g Tab Refills(s) 0 Start Date: 12/04/23 Status: Ordered Start: 09-17-2023 take 1 tablet by trudi th twice daily as needed for dizziness Meclizine 25 mg tablet Active 25 MG PO Twice daily as needed for dizziness September 17, 2023 12:00am meclizine (Antiv ert) 12.5 mg tablet Take by mouth. Active mecobalamin (20 sources) Start: 06-30-2023 take 1000 ug by mout h once daily Mecobalamin (Vitamin B12) Active 1000 MCG PO Daily June 30, 2023 1:00am allow to dissolve in mouth OR may chew lightly before swallowing Start: 07-29-2021 take 1 tablet by trudi th once daily Mecobalamin (Vitamin B12) (B12 Active) 1,000 mcg Tablet,Chewable Active 1000 MCG PO Daily July 29, 2021 11:31am Start: 07-29-2021 End: 01-02-2022 take 1 tablet by mouth once daily Mecobalamin (Vitamin B12) (B12 Active) 1,000 mcg Tablet,Chewable Discontinued 1000 MCG PO Daily July 28, 2021 11:00pm January 02, 2022 1:01pm Start: 07-29-2021 End: 01-02-2022 take 1 tablet by mouth once daily Mecobalamin (Vitamin B12) (B12 Active) 1,000 mcg Tablet,Chewable Discontinued 1000 MCG PO Daily July 29, 2021 12:00am January 02, 2022 2:01pm Mecobalamin (Vitamin B12) 1,000 mcg lozenge (5 sources) Start: 06-30-2023 take 1000 ug by mouth once daily Mecobalamin (Vitamin B12) 1,000 mcg lozenge Active 1000 MCG PO Daily June 30, 2023 1:00am allow to dissolve in mouth OR may chew lightly before swallowing Start: 06-30-2023 take 1000 ug by mout h once daily Mecobalamin (Vitamin B12) 1,000 mcg lozenge Active 1000 MCG PO Daily June 30, 2023 12:00am allow to dissolve in mouth OR may chew lightly before swallowing methenamine hippurate 1000 mg oral tablet (20 sources) Start: 03-13-2024 take 1 tablet by mouth twice daily methenamine hippurate 1 g oral tablet 1 gm = 1 tab(s), Oral, BID, # 180 tab(s), Refills(s) 3, Pharmacy: [facility]/pharmacy #[id number], 175, cm, 01/18/24 11:11:00 EDT, Height/Length Dosing, 74, kg, 01/18/24 11:11:00 EDT, Weight Dosing Start Date: 03/13/24 Status: Ordered Start: 12-04-2023 take 1 tablet by trudi th twice daily methenamine hippurate 1 g oral tablet Oral, BID, Refills(s) 0 Start Date: 12/04/23 Status: Ordered Start: 06-30-2023 Methenamine Hi ppurate 1 gram tablet Active 1 GM PO Twice daily June 30, 2023 1:00am Start: 11-11-2022 End: 11-06-2023 take 1 tablet by mouth twice daily methenamine hippurate 1 g oral tablet 1 gm = 1 tab(s), Oral, BID, X 90 day(s), # 180 tab(s), Refills(s) 3, Pharmacy: [facility]/pharmacy #[id number], 175, cm, 11/11/22 13:55:00 EDT, Height/Length Dosing, 85.5, kg, 11/11/22 13:55:00 EDT, Weight Dosing Start Date: 11/11/22 Stop Date: 11/06/23 Status: Ordered methylPREDNISolone (13 sources) Corticosteroid Start: 04-08-2023 End: 04-15-2023 methylPREDNISolone (Medrol Dospak) 4 mg tablets Indications: Intractable chronic migraine without aura and with status migrainosus Follow schedule on package instructions 21 tablet 0 04/08/2023 04/15/2023 Active Start: 09-08-2020 End: 09-08-2020 methylPREDNISolone sodium (S BRUNO-MEDROL) injection 125 mg Start: 09-29-2018 take 1 tablet by mouth once me thylPREDNISolone 4 MG Oral Tablet Therapy Pack Take as directed per package instruction Quantity: 1 Refills: 0 Mathew Miller MD Start : 29-Sep-2018 Active 21 Tablet Pack Start: 07-23-2018 methylPREDNISo lone Sodium Succ 125 MG Injection Solution Reconstituted INJECT 2 ML Intradermal Quantity: 0 Refills: 0 Courtney Brown MD Start : 23-Jul-2018 Admin Requested Metoprolol (20 sources) beta-Adrenergic Erika Start: 12-04-2023 metopr olol Oral, Daily, Refills(s) 0 Start Date: 12/04/23 Status: Ordered Start: 12-04-2023 metoprolol Ref ills(s) 0 Start Date: 12/04/23 Status: Ordered Start: 02-23-2020 End: 09-13-2024 metoprolol succinate XL (Top rol-XL) 25 mg 24 hr tablet Daily 02/23/2020 09/13/2024 Discontinued (Therapy completed) mometasone furoate 0.05 mg/actuat metered dose nasal spray (9 sources) Corticosteroid Start: 12-04-2023 mometasone 50 mcg/inh inhalation aerosol Refills(s) 0 Start Date: 12/04/23 Status: Ordered Start: 06-16-2022 take 2 puff(s) by mo uth twice daily Asmanex (120 Metered Doses) 220 MCG/ACT Inhalation Aerosol Powder Breath Activated INHALE 2 PUFFS BY MOUTH TWICE EVERY DAY Quantity: 1 Refills: 3 Ordered: 16-Jun-2022 Courtney Brown MD Start : 16-Jun-2022 Active MOMETASONE-FORMOTEROL INHL (9 sources) MOMETASONE-FORMO TEROL INHL Inhale. Active MOMETASONE-FORMO TEROL INHL Inhale. 0 Active Mycelex Aleksey 10 mg Lozenge (3 sources) Start: 12-04-2023 Mycelex Aleksey 10 mg Lozenge Refills(s) 0 Start Date: 12/04/23 Status: Ordered naratriptan 2.5 mg oral tablet (20 sources) Serotonin-1b and Serotonin-1d Receptor Agonist Start: 09-15-2019 take 1 tablet by mouth once as needed naratriptan (AMERGE) 2.5 MG tablet Indications: Intractable chronic migraine without aura and without status migrainosus Take 1 tablet by mouth once as needed for Migraine 2.5 mg at onset of headache, may repeat in 4 hours if needed 9 tablet 5 09/15/2019 Active Start: 03-14-2019 take 1 tablet by trudi th once as needed naratriptan (AMERGE) 2.5 MG tablet Take 1 tablet by mouth once as needed for Migraine 2.5 mg at onset of headache, may repeat in 4 hours if needed 9 tablet 3 03/14/2019 Active Start: 10-27-2018 take 1 tablet by trudi th once as needed naratriptan (AMERGE) 2.5 MG tablet Take 1 tablet by mouth once as needed for Migraine 2.5 mg at onset of headache, may repeat in 4 hours if needed 9 tablet 3 10/27/2018 Active Start: 08-20-2018 take 1 tablet by trudi th every four hours Naratriptan HCl - 2.5 MG Oral Tablet TAKE 1 TABLET AT ONSET OF HEADACHE, MAY REPEAT ONCE IN 4 HOURS Quantity: 9 Refills: 6 Jodie Matthews MD Start : 20-Aug-2018 Active nebulizer accessories kit (12 sources) Start: 03-24-2023 End: 03-23-2024 nebulizer accessories kit Indications: Asthma with chronic obstructive pulmonary disease (COPD) (Multi) 1 kit see administration instructions. 1 kit 3 03/24/2023 03/23/2024 Active Start: 03-24-2023 End: 03-23-2024 nebulizer accessories kit In dications: Asthma with chronic obstructive pulmonary disease (COPD) 1 kit see administration instructions. 1 kit 3 03/24/2023 03/23/2024 Active no lifting >30lbs, no bending to the ground, no using ramp unless necessary (20 sources) Start: 08-07-2022 no lifting >30 lbs, no bending to the ground, no using ramp unless necessary no lifting >30lbs, no bending to the ground, no using ramp unless necessary, Print Requisition, Supply Start Date: 08/07/22 Status: Ordered NONFORMULARY (3 sources) NONFORMULARY Indications: EVERY 2 MONTHS Indications: EVERY 2 MONTHS 0 Active omeprazole 40 mg delayed release oral capsule (20 sources) Proton Pump Inhibitor Start: 12-09-2023 take 1 capsule by mouth every twelve hours omeprazole (PriLOSEC) [address] capsule Indications: Gastro-esophageal reflux disease without esophagitis TAKE 1 CAPSULE BY MOUTH EVERY 12 HOURS 180 capsule 3 12/09/2023 Active Start: 06-30-2023 take 1 capsule by [facility] once daily Omeprazole 20 mg capsule,delayed release(DR/EC) Active 20 MG PO Daily June 30, 2023 3:35pm Start: 05-19-2022 omeprazole 40 mg Cap-DR BID, Refills(s) 0 Start Date: 05/19/22 Status: Ordered Start: 07-29-2021 End: 06-30-2023 take 1 capsule by mouth twice daily Omeprazole 20 mg Capsule,Delayed Release(Dr/Ec) Discontinued 20 MG PO Twice daily July 29, 2021 12:00am June 30, 2023 3:38pm Start: 08-07-2020 take 1 capsule by [facility] every twelve hours Omeprazole 40 MG Oral Capsule Delayed Release TAKE 1 CAPSULE BY MOUTH EVERY 12 HOURS Quantity: 180 Refills: 3 Ordered: 15-Dec-2022 Courtney Brown MD Start : 07-Aug-2020 Active Start: 08-07-2020 take 1 capsule by [facility] every twelve hours Omeprazole 40 MG Oral Capsule Delayed Release TAKE 1 CAPSULE Every twelve hours Quantity: 180 Refills: 3 Ordered: 13-Feb-2022 Courtney Brown MD Start : 07-Aug-2020 Active Start: 10-20-2017 take 1 capsule by [facility] twice daily Omeprazole 20 MG Oral Capsule Delayed Release TAKE 1 CAPSULE BY MOUTH TWICE A DAY Quantity: 180 Refills: 1 Ordered: 07-Aug-2020 Courtney Brown MD Start : 07-Aug-2020 Active take 2 capsules by [facility] twice daily omeprazole (PriLOSEC) [address] capsule Take 2 capsules (80 mg) by mouth twice a day. Active take 1 capsule by [facility] once daily Omeprazole 20 MG 1 capsule 30 minutes before morning meal Orally Once a day Active ondansetron 4 mg oral tablet (20 sources) Serotonin-3 Receptor Antagonist Start: 07-03-2020 take 2 tablets by mouth every eight hours as needed ondansetron (Zofran) 4 mg tablet Take 2 tablets (8 mg) by mouth every 8 hours if needed for nausea or vomiting. 07/03/2020 Active Start: 07-03-2020 take 1 tablet by trudi th every eight hours as needed for nausea ondansetron 4 mg Tab 4 mg = 1 tab(s), Oral, q8hr, PRN Nausea/Vomiting, Refills(s) 0 Start Date: 11/27/22 Status: Ordered 12 hr orphenadrine citrate 100 mg extended release oral tablet (20 sources) Muscle Relaxant Start: 12-08-2018 orphenadrine (NORFLEX) 100 MG extended release tablet 2 times daily as needed 0 12/08/2018 Active oxyCODONE hydrochloride 5 mg oral tablet (14 sources) Opioid Agonist Start: 07-07-2024 take 1 tablet by mouth three times daily as needed Oxycodone 5 mg tablet Active 5 MG PO Three times daily as needed July 07, 2024 11:44am Start: 05-31-2024 End: 07-07-2024 take 1 tablet by mouth twice daily as needed Oxycodone 5 mg tablet Discontinued 5 MG PO Twice daily as needed May 31, 2024 1:00am July 07, 2024 11:47am Start: 10-20-2019 oxyCODONE (ANNE ICODONE) 5 MG immediate release tablet Take 5 mg by mouth as needed. 0 10/20/2019 Active oxyCODONE (Oxayd o) 5 mg immediate release tablet Take 1 tablet (5 mg) by mouth if needed for severe pain (7 - 10). Active oxygen (O2) gas therapy (20 sources) Start: 11-27-2022 oxygen (O2) ga s therapy 3.5 L/min. 11/27/2022 Active Start: 11-27-2022 oxygen (O2) ga s therapy 2 L/min. 11/27/2022 Active Start: 11-27-2022 oxygen (O2) ga s therapy 2 L/min. 0 11/27/2022 Active oxygen as ordered (16 sources) oxygen as ordere d Active Potassium Chloride (Klor-Con M20) 20 mEq tablet,ER particles/crystals (17 sources) Start: 05-09-2024 take 1 tablet by mouth twice daily at mealtime Potassium Chloride (Klor-Con M20) 20 mEq tablet,ER particles/crystals Active 0 .ROUTE .COMPLEX 180 May 09, 2024 1:42pm TAKE 1 TABLET BY MOUTH TWICE A DAY WITH FOOD Start: 05-09-2024 take 1 tablet by trudi th twice daily at mealtime Potassium Chloride (Klor-Con M20) 20 mEq tablet,ER particles/crystals Active 0 .ROUTE .COMPLEX 180 May 09, 2024 12:42pm TAKE 1 TABLET BY MOUTH TWICE A DAY WITH FOOD Start: 11-16-2023 End: 05-09-2024 take 1 tablet by mouth twice daily at mealtime Potassium Chloride (Klor-Con M20) 20 mEq tablet,ER particles/crystals Discontinued 0 .ROUTE .COMPLEX 180 November 16, 2023 9:55am May 09, 2024 1:42pm TAKE 1 TABLET BY MOUTH TWICE A DAY WITH FOOD Start: 11-16-2023 End: 05-09-2024 take 1 tablet by mouth twice daily at mealtime Potassium Chloride (Klor-Con M20) 20 mEq tablet,ER particles/crystals Discontinued 0 .ROUTE .COMPLEX 180 November 16, 2023 8:55am May 09, 2024 12:42pm TAKE 1 TABLET BY MOUTH TWICE A DAY WITH FOOD Start: 11-16-2023 take 1 tablet by trudi twice daily at mealtime Potassium Chloride (Klor-Con M20) 20 mEq tablet,ER particles/crystals Active 0 .ROUTE .COMPLEX 180 November 16, 2023 9:55am TAKE 1 TABLET BY MOUTH TWICE A DAY WITH FOOD prednisoLONE 5 mg oral tablet (10 sources) Corticosteroid take 1 tablet by mouth once daily at mealtime prednisoLONE 5 MG 1 tablet in the morning with food or milk Orally Once a day Active predniSONE 20 mg oral tablet (20 sources) Start: 06-14-2024 End: 06-26-2024 take 3 tablets by mouth once daily, then take 2 tablets by mouth once daily, then take 1 tablet by mouth once daily, then take 0.5 tablet by mouth once daily predniSONE (Deltasone) 20 mg tablet Indications: Asthma with chronic obstructive pulmonary disease (COPD) (Multi) Take 3 tablets (60 mg) by mouth once daily for 3 days, THEN 2 tablets (40 mg) once daily for 3 days, THEN 1 tablet (20 mg) once daily for 3 days, THEN 0.5 tablets (10 mg) once daily for 3 days. 20 tablet 06/14/2024 06/26/2024 Active Start: 02-16-2024 End: 02-28-2024 take 3 tablets by mouth once daily, then take 2 tablets by mouth once daily, then take 1 tablet by mouth once daily, then take 0.5 tablet by mouth once daily predniSONE (Deltasone) 20 mg tablet Indications: Asthma with chronic obstructive pulmonary disease (COPD) (Multi) Take 3 tablets (60 mg) by mouth once daily for 3 days, THEN 2 tablets (40 mg) once daily for 3 days, THEN 1 tablet (20 mg) once daily for 3 days, THEN 0.5 tablets (10 mg) once daily for 3 days. 20 tablet 02/16/2024 02/28/2024 Active Start: 02-10-2024 End: 07-07-2024 take 1 tablet by mouth twice daily Prednisone 20 mg tablet Discontinued 20 MG PO Twice daily February 10, 2024 12:00am July 07, 2024 11:45am Start: 10-26-2023 End: 11-24-2023 take 1 tablet by mouth twice daily Prednisone 20 mg tablet Discontinued 20 MG PO Twice daily October 26, 2023 12:00am November 24, 2023 2:52pm Start: 07-09-2022 End: 06-22-2023 predniSONE (Deltasone) 10 mg tablet 4 TABLETS ONCE A DAY FOR 3 DAYS, 3 TABS DAILY X3 DAYS, 2 TABS DAILY X3 DAYS, 1 TAB DAILY X3 DAYS 0 08/25/2022 06/22/2023 Discontinued (Med List Cleanup) Start: 02-12-2022 End: 02-26-2022 predniSONE 10 MG Oral Tablet TAKE 4 TABLETS DAILY FOR 3 DAYS,3 TABLETS DAILY FOR 3 DAYS, 2 TABLETS DAILY FOR 3 DAYS AND 1 TABLET DAILY FOR 3 DAYS, THEN STOP. Quantity: 30 Refills: 0 Ordered: 12-Feb-2022 Rich Magana MD Start : 12-Feb-2022 End : 26-Feb-2022 Complete Start: 06-03-2021 End: 11-06-2021 take 2 tablets by mouth every other day, then take 1.5 tablets by mouth every other day predniSONE 10 MG Oral Tablet TAKE 2 TABLETS BY MOUTH EVERY OTHER DAY ALTERNATING WITH 1.5 TABLETS EVERY OTHER DAY Quantity: 100 Refills: 1 Ordered: 29-Oct-2021 Rich Magana MD Start : 03-Jun-2021 End : 06-Nov-2021 Complete Start: 04-01-2021 take 1 tablet by trudi once daily predniSONE 20 MG Oral Tablet 1 TAB DAILY Quantity: 30 Refills: 1 Ordered: 22-May-2021 Courtney Brown MD Start : 01-Apr-2021 Active Start: 04-01-2021 predniSONE 20 MG Oral Tablet Take 3 pills daily for 7 days then 2 pills daily for 7 days then 1 1/2 pills for 7 days then 1 pill daily and hold Quantity: 60 Refills: 1 Ordered: 01-Apr-2021 Courtney Brown MD Start : 01-Apr-2021 Active Start: 09-24-2020 take 0.5 tablet by m outh once daily predniSONE 10 MG Oral Tablet 40mg PO Qday 4 days, 30mg PO Qday for 4 days, 20mg PO Qday for 4 days, 10mg PO Qday for 4 days then 1/2 tab for 6 daysincrease to previous dose if symptoms worsen Quantity: 120 Refills: 0 Ordered: 24-Sep-2020 Courtney Brown MD Start : 24-Sep-2020 Active Start: 09-03-2020 predniSONE 20 MG Oral Tablet take two pills in the morning for 1 week then take one pill daily for 1 week then take 1/2 pill daily for one week then start new taper Quantity: 60 Refills: 0 Ordered: 03-Sep-2020 Courtney Brown MD Start : 03-Sep-2020 Active Start: 03-24-2019 End: 04-03-2019 predniSONE (DELTASONE) 10 MG tablet Tapered dose 40mg x 3 days...30mg x 3 days...20mg x 3 days ...10mg x3days ...then off 30 tablet 0 03/24/2019 04/03/2019 Active Start: 12-15-2018 End: 12-20-2018 take 2 tablets by mouth once daily predniSONE (DELTASONE) 20 MG tablet Indications: Neuropathy , Chronic obstructive pulmonary disease, unspecified COPD type (HCC) Take 2 tablets by mouth daily for 5 days 10 tablet 0 12/15/2018 12/20/2018 Active Start: 07-23-2018 take 2 tablets by mo [facility] twice daily, then take 1 tablet by mouth twice daily, then take 1 tablet by mouth once daily predniSONE 20 MG Oral Tablet 2 pills BID for 5 days then 1 pill BID for 5 days then 1 pill QD until follow up in one month. May go up to previous dose if symptoms flare. Quantity: 120 Refills: 0 Ordered: 26-Nov-2020 Courtney Brown MD Start : 23-Jul-2018 Active pregabalin 100 mg oral capsule (20 sources) Start: 06-30-2023 take 1 capsule by mouth twice daily Pregabalin (Lyrica) 100 mg capsule Active 100 MG PO Twice daily June 30, 2023 3:34pm Start: 04-08-2023 End: 07-07-2023 take 1 capsule by mouth three times daily Pregabalin (Lyrica) 100 mg capsule Discontinued 100 MG PO Three times daily June 02, 2023 12:30pm June 30, 2023 3:38pm Start: 03-18-2022 End: 06-02-2023 take 1 capsule by mouth twice daily Pregabalin (Lyrica) 100 mg Capsule Discontinued 100 MG PO Twice daily March 18, 2022 1:00am June 02, 2023 12:30pm Start: 07-29-2021 End: 01-02-2022 take 1 capsule by mouth twice daily Pregabalin 75 mg capsule Discontinued 75 MG PO Twice daily July 29, 2021 12:00am January 02, 2022 2:00pm take 1 capsule by mo [facility] every eight hours Lyrica 100 mg 1 capsule Orally three times a day Active sodium chloride flush 0.9 % injection 3 mL (1 source) Start: 09-08-2020 sodium chlorid e flush 0.9 % injection 3 mL SUMAtriptan 100 mg oral tablet (20 sources) Serotonin-1b and Serotonin-1d Receptor Agonist Start: 07-07-2024 take 1 tablet by mouth every two hours Sumatriptan Succinate 100 mg tablet Active 0 PO .COMPLEX July 07, 2024 1:00am take 1 tab at onset of headache; if no relief, may repeat 1 tab after at least 2 hrs; max = 2 tabs/24 hrs PO Start: 05-31-2024 Sumatriptan Carroll ccinate 6 mg/0.5 mL pen injector Active MG SUBCUT May 31, 2024 1:00am Start: 04-07-2024 take 1 tablet by trudi once, then take 2 tablets by mouth every twenty-four hours SUMAtriptan (Imitrex) 100 mg tablet Indications: Chronic migraine without aura without status migrainosus, not intractable Take 1 tablet (100 mg) by mouth 1 time if needed for migraine for up to 108 doses. No more than 2 triptan medications in 24 hours. 27 tablet 3 04/07/2024 Active Start: 01-13-2024 End: 04-07-2024 SUMAtriptan (Imitrex) 6 mg/0 .5 mL injection Indications: Chronic migraine without aura without status migrainosus, not intractable Inject 0.5 mL (6 mg) under the skin if needed for migraine for up to 18 doses. No more than 2 triptan medications in 24 hours. 3 mL 3 04/07/2024 Active Start: 01-13-2024 SUMAtriptan (I mitrex) 6 mg/0.5 mL injection Inject 1 pen (0.5 mL) under the skin once if needed for migraine. May repeat dose after 1 hour if symptoms persist or return. Do not exceed max of 6 mg per dose or 12 mg per 24 hours. 3 mL 6 08/09/2024 3:10 PM EDT 01/13/2024 Active Start: 06-22-2023 inject 0.5 mL by sub cutaneous injection once SUMAtriptan (Imitrex) 6 mg/0.5 mL injection Indications: Chronic migraine without aura, intractable, with status migrainosus Inject 0.5 mL (6 mg) under the skin if needed for migraine. Please try caraco brand or other sumatriptan injectable that is not a cartridge. Patient does not have the hand strength. Sub q prefilled syringe if this is not available 0.5 mL 6 06/22/2023 Active Start: 05-27-2023 End: 06-22-2023 SUMAtriptan (Imitrex) 6 mg/0 .5 mL injection Indications: Chronic migraine without aura, intractable, with status migrainosus Inject 0.5 mL (6 mg) under the skin if needed for migraine. 3 mL 6 06/22/2023 Active Start: 05-19-2022 SUMAtriptan 6 mg/0.5 mL SubQ [place] PRN Migraine headache, Refills(s) 0 Start Date: 05/19/22 Status: Ordered Start: 05-19-2022 SUMAtriptan 6 mg/0.5 mL SubQ [place] Refills(s) 0 Start Date: 05/19/22 Status: Ordered Start: 07-29-2021 End: 01-02-2022 inject 6 mg by subcutaneous injection once daily as needed for headache Sumatriptan Succinate 6 mg/0.5 mL pen injector Discontinued 6 MG SUBCUT Daily as needed for Migraine Headache July 29, 2021 12:00am January 02, 2022 2:00pm Start: 07-28-2018 inject 0.5 mL by sub cutaneous injection every two hours SUMAtriptan (Imitrex) 6 mg/0.5 mL injection Inject 0.5 mL (6 mg) under the skin if needed (headache. may repear in 2hrs. max dose: 2 in 24hrs). 0 07/28/2018 Active Start: 07-28-2018 inject 1 dose by sub cutaneous injection every two hours, then inject 1 dose by subcutaneous injection every twenty-four hours SUMAtriptan Succinate 6 MG/0.5ML Subcutaneous Solution Auto-injector INJECT 1 DOSE AT ONSET OF HEADACHE. MAY REPEAT IN 2 HOURS. MAXIMUM DOSE: 2 IN 24 HOURS. Quantity: 3 Refills: 6 Ordered: 03-Sep-2022 Jodie Matthews MD Start : 28-Jul-2018 Active 6 syringes Start: 07-28-2018 SUMAtriptan Carroll ccinate 6 MG/0.5ML Subcutaneous Solution Auto-injector 1 injection at onset of migraine, May repeat in 2 hours if no relief. Maximum injection 2 in 24 hours. Quantity: 3 Refills: 6 Jodie Matthews MD Start : 28-Jul-2018 Active 2 x 0.5 ML Cartridge SUMAtriptan Acti ve tamsulosin (20 sources) alpha-Adrenergic Erika Start: 12-04-2023 tamsu losin Refills(s) 0 Start Date: 12/04/23 Status: Ordered Start: 07-29-2021 take 1 capsule by mo ut every twenty-four hours tamsulosin (Flomax) 0.4 mg 24 hr capsule Tamsulosin Active 0.8 MG PO Daily at bedtime July 28, 2021 11:00pm 07/29/2021 Active Start: 07-29-2021 End: 06-30-2023 take 2 capsules by mouth once daily at bedtime Tamsulosin 0.4 mg capsule Discontinued 0.8 MG PO Daily at bedtime July 29, 2021 12:00am June 30, 2023 3:38pm Start: 07-29-2021 End: 06-30-2023 take 0.8 mg by mouth once daily at bedtime Tamsulosin Discontinued 0.8 MG PO Daily at bedtime July 29, 2021 12:00am June 30, 2023 3:38pm take 1 capsule by [facility] every twenty-four hours Flomax 0.4 MG 1 capsule Orally Once a day Active Tezepelumab-Ekko (9 sources) Start: 12-02-2023 Tezepelumab-Ek ko (Tezspire) 210 mg/1.91 mL (110 mg/mL) pen injector Active 210 MG SUBCUT EVERY 4 WEEKS December 01, 2023 11:00pm Start: 12-02-2023 Tezepelumab-Ek ko (Tezspire) 210 mg/1.91 mL (110 mg/mL) pen injector Active 210 MG SUBCUT EVERY 4 WEEKS December 02, 2023 12:00am tezepelumab-ekko (Tezspire) SubQ Pen Injector (20 sources) Start: 04-05-2024 End: 10-05-2024 tezepelumab-ekko (Tezspire) SubQ Pen Injector Indications: Asthma with chronic obstructive pulmonary disease (COPD) (Multi) Inject 1 pen (210 mg) under the skin every 28 (twenty-eight) days. 1.91 mL 5 09/07/2024 4:21 PM EDT 04/05/2024 10/05/2024 Active Start: 04-05-2024 End: 09-06-2024 tezepelumab-ekko (Tezspire) SubQ Pen Injector Indications: Asthma with chronic obstructive pulmonary disease (COPD) (Multi) Inject 1 pen (210 mg) under the skin every 28 (twenty-eight) days. 1.91 mL 5 08/09/2024 1:12 PM EDT 04/05/2024 09/06/2024 Active Start: 04-05-2024 End: 08-24-2024 tezepelumab-ekko (Tezspire) SubQ Pen Injector Indications: Asthma with chronic obstructive pulmonary disease (COPD) (Multi) Inject 1 pen (210 mg) under the skin every 28 (twenty-eight) days. 1.91 mL 5 06/29/2024 3:34 PM EST 04/05/2024 08/24/2024 Active Start: 04-05-2024 End: 08-24-2024 tezepelumab-ekko (Tezspire) SubQ Pen Injector Indications: Asthma with chronic obstructive pulmonary disease (COPD) (Multi) Inject 1 pen (210 mg) under the skin every 28 (twenty-eight) days. 1.91 mL 5 06/01/2024 7:24 AM EST 04/05/2024 08/24/2024 Active Start: 04-05-2024 End: 08-24-2024 tezepelumab-ekko (Tezspire) SubQ Pen Injector Indications: Asthma with chronic obstructive pulmonary disease (COPD) (Multi) Inject 1 pen (210 mg) under the skin every 28 (twenty-eight) days. 1.91 mL 5 04/13/2024 2:35 PM EST 04/05/2024 08/24/2024 Active Start: 04-05-2024 End: 08-24-2024 tezepelumab-ekko (Tezspire) SubQ Pen Injector Indications: Asthma with chronic obstructive pulmonary disease (COPD) (Multi) Inject 1 pen (210 mg) under the skin every 28 (twenty-eight) days. 1.91 mL 5 04/05/2024 08/24/2024 Active Start: 10-26-2023 End: 03-22-2024 tezepelumab-ekko (Tezspire) SubQ Pen Injector Indications: Asthma with chronic obstructive pulmonary disease (COPD) (Multi) Inject 1 pen (210 mg) under the skin every 28 (twenty-eight) days. 1.91 mL 5 02/22/2024 10:42 AM EDT 10/26/2023 03/22/2024 Active Start: 10-26-2023 End: 03-15-2024 tezepelumab-ekko (Tezspire) SubQ Pen Injector Indications: Asthma with chronic obstructive pulmonary disease (COPD) (Multi) Inject 1 pen (210 mg) under the skin every 28 (twenty-eight) days. 1.91 mL 5 01/26/2024 1:45 PM EDT 10/26/2023 03/15/2024 Active Start: 10-26-2023 End: 03-15-2024 tezepelumab-ekko (Tezspire) SubQ Pen Injector Indications: Asthma with chronic obstructive pulmonary disease (COPD) (Multi) Inject 1 pen (210 mg) under the skin every 28 (twenty-eight) days. 1.91 mL 5 10/26/2023 03/15/2024 Active Start: 05-19-2023 End: 11-10-2023 inject 1.9 mL by subcutaneous injection once tezepelumab-ekko (Tezspire) SubQ Pen Injector Indications: Asthma with chronic obstructive pulmonary disease (COPD) (Multi) Inject 1.9 mL (210 mg) under the skin every 28 (twenty-eight) days for 6 doses. 1.91 mL 5 05/19/2023 11/10/2023 Active Start: 05-19-2023 End: 10-07-2023 inject 1.9 mL by subcutaneous injection once tezepelumab-ekko (Tezspire) SubQ Pen Injector Indications: Asthma with chronic obstructive pulmonary disease (COPD) Inject 1.9 mL (210 mg) under the skin every 28 (twenty-eight) days for 6 doses. 1.91 mL 5 05/19/2023 10/07/2023 Active Tezspire (7 sources) Start: 12-04-2023 Tezspire injec tion once per 28 days for asthma, Refills(s) 0 Start Date: 12/04/23 Status: Ordered Start: 12-04-2023 Tezspire Refil ls(s) 0 Start Date: 12/04/23 Status: Ordered tiotropium 0.018 mg inhalation powder (3 sources) Anticholinergic Start: 12-08-2019 take 1 capsule by inhalation once daily tiotropium (SPIRIVA HANDIHALER) 18 MCG inhalation capsule Inhale 1 capsule into the lungs daily 1 capsule 12/08/2019 Active topiramate 50 mg oral tablet (20 sources) Start: 12-07-2023 End: 06-02-2024 take 1 tablet by mouth in the morning topiramate (Topamax) 50 mg tablet Indications: Chronic migraine without aura without status migrainosus, not intractable TAKE 1 TABLET BY MOUTH IN THE MORNING, 1 IN THE EVENING AND 1 AT BEDTIME WITH 200MG TABLET 270 tablet 3 06/02/2024 Active Start: 12-07-2023 End: 06-02-2024 take 1 tablet by mouth once daily topiramate (Topamax) 100 mg tablet Indications: Chronic migraine without aura without status migrainosus, not intractable Take 1 tablet (100 mg) by mouth once daily. With 50mg 90 tablet 3 06/02/2024 Active Start: 06-30-2023 End: 06-02-2024 take 1 tablet by mouth twice daily, then take 1 tablet by mouth at dinner, then take 1 tablet by mouth at bedtime topiramate (Topamax) 200 mg tablet Indications: Chronic migraine without aura without status migrainosus, not intractable Take 1 tablet (200 mg) by mouth 2 times a day. 1 tab at dinner and 1 tab at bedtime 180 tablet 3 06/02/2024 Active Start: 2023 topiramate 50 mg Tab Take 150mg at breakfast Take 200 Mg at 5pm and 250 mg at HS, Refills(s) 0 Start Date: 01/19/23 Status: Ordered Start: 05-19-2022 topiramate 100 mg Tab 200 mg at night, Refills(s) 0 Start Date: 05/19/22 Status: Ordered Start: 07-29-2021 End: 06-30-2023 Topiramate 200 mg tablet Discontinued 100 MG PO As Directed July 29, 2021 12:00am June 30, 2023 3:38pm 2 in am, 1 at noon, 2 in evening, 1 at bedtime Start: 07-29-2021 End: 06-30-2023 Topiramate Discontinued 100 MG PO As Directed July 29, 2021 12:00am June 30, 2023 3:38pm 2 in am, 1 at noon, 2 in evening, 1 at bedtime Start: 11-27-2017 End: 06-22-2023 take 1 tablet by mouth twice daily, then take 1 tablet by mouth at dinner, then take 1 tablet by mouth at bedtime topiramate (Topamax) 200 mg tablet Indications: Chronic migraine without aura without status migrainosus, not intractable Take 1 tablet (200 mg) by mouth 2 times a day. 1 tab at dinner and 1 tab at bedtime 180 tablet 3 06/22/2023 Active Start: 11-27-2017 End: 07-30-2021 take 1 tablet by mouth twice daily Topiramate 100 mg tablet Discontinued 100 MG PO Twice daily July 29, 2021 12:00am July 30, 2021 9:28am Start: 11-27-2017 take 1 tablet by trudi th four times daily topiramate (Topamax) 100 mg tablet Take 1 tablet (100 mg) by mouth 4 times a day. 0 11/27/2017 Active Start: 12-13-2012 End: 06-22-2023 take 1 tablet by mouth in the morning topiramate (Topamax) 50 mg tablet Indications: Chronic migraine without aura without status migrainosus, not intractable TAKE 1 TABLET BY MOUTH IN THE MORNING, 1 IN THE EVENING AND 1 AT BEDTIME WITH 200MG TABLET 270 tablet 3 06/22/2023 Active Start: 12-13-2012 End: 06-22-2023 take 1 tablet by mouth once daily topiramate (Topamax) 100 mg tablet Indications: Chronic migraine without aura without status migrainosus, not intractable Take 1 tablet (100 mg) by mouth once daily. With 50mg 90 tablet 3 06/22/2023 Active take 1 tablet by trudi th every twenty-four hours Topamax 200 MG 1 tablet Orally Once a day Active Trelegy Ellipta 100 mcg-62.5 mcg-25 mcg inhalation powder (6 sources) Start: 05-19-2022 Trelegy Ellipta 100 mcg-62.5 mcg-25 mcg inhalation powder Refills(s) 0 Start Date: 05/19/22 Status: Ordered Trelegy Ellipta 100-62.5-25 MCG/INH (16 sources) take 1 puff(s) by inhalation once daily Trelegy Ellipta 100-62.5-25 MCG/INH 1 puff Inhalation Once a day Active triamcinolone acetonide 0.055 mg/actuat metered dose nasal spray (20 sources) Corticosteroid Start: 06-23-2024 End: 07-23-2024 take 2 spray(s) nasal route once daily triamcinolone (Nasacort) 55 mcg nasal inhaler 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 10.8 mL 3 06/23/2024 07/23/2024 Active Start: 11-10-2022 Zilretta 2022 32 mg Start: 04-10-2022 Kenalog-40 Jul, 80 mg 7 actuat umeclidinium 0.0625 mg/actuat dry powder inhaler (20 sources) Anticholinergic Start: 01-02-2022 End: 10-08-2023 take 62.5 ug by inhalation once daily umeclidinium (Incruse Ellipta) 62.5 mcg/actuation inhalation Daily 01/02/2022 10/08/2023 Discontinued (Med List Cleanup) Start: 01-02-2022 End: 06-30-2023 take 62.5 ug by inhalation once daily Umeclidinium (Incruse Ellipta) 62.5 mcg/actuation Blister With Device Discontinued 1 INH INHALATION Daily January 01, 2022 11:00pm June 30, 2023 2:38pm Start: 01-02-2022 End: 06-30-2023 take 62.5 ug by inhalation once daily Umeclidinium (Incruse Ellipta) 62.5 mcg/actuation Blister With Device Discontinued 1 INH INHALATION Daily January 02, 2022 12:00am June 30, 2023 3:38pm Start: 01-02-2022 take 62.5 ug by inha lation once daily Umeclidinium (Incruse Ellipta) 62.5 mcg/actuation Blister With Device Active 1 INH INHALATION Daily January 01, 2022 11:00pm Start: 01-02-2022 take 62.5 ug by inha lation once daily Umeclidinium (Incruse Ellipta) 62.5 mcg/actuation Blister With Device Active 1 INH INHALATION Daily January 02, 2022 12:00am Start: 11-21-2019 End: 03-24-2023 take 1 puff(s) by inhalation once daily umeclidinium (Incruse Ellipta) 62.5 mcg/actuation inhalation Inhale 1 puff (62.5 mcg) once daily. 0 11/21/2019 03/24/2023 Discontinued (Med List Cleanup) Start: 08-04-2017 End: 08-18-2019 take 1 puff(s) by inhalation once daily Umeclidinium [place] (INCRUSE ELLIPTA) 62.5 MCG/INH AEPB Inhale 1 puff into the lungs daily 1 each 12/16/2018 Active 24 hr venlafaxine 150 mg extended release oral tablet (20 sources) Serotonin and Norepinephrine Reuptake Inhibitor Start: 05-31-2024 take 1 capsule by mouth every twenty-four hours Venlafaxine 150 mg capsule,extended release 24hr Active MG PO May 31, 2024 1:00am Start: 05-13-2024 take 2 capsules by m outh once daily at mealtime venlafaxine XR (Effexor-XR) 150 mg 24 hr capsule Indications: Chronic migraine without aura without status migrainosus, not intractable TAKE 2 CAPSULES BY MOUTH ONCE DAILY WITH FOOD 180 capsule 3 05/13/2024 Active Start: 11-19-2023 take 2 capsules by m outh once daily at mealtime venlafaxine XR (Effexor-XR) 150 mg 24 hr capsule Indications: Chronic migraine without aura without status migrainosus, not intractable TAKE 2 CAPSULES BY MOUTH ONCE DAILY WITH FOOD 180 capsule 1 11/19/2023 Active Start: 06-30-2023 End: 10-09-2023 take 1 tablet by mouth once daily Venlafaxine 225 mg tablet extended release 24hr Discontinued 225 MG PO Daily August 20, 2023 4:11pm October 09, 2023 9:11am Start: 06-22-2023 End: 07-22-2023 take 2 tablets by mouth once daily at mealtime venlafaxine 150 mg 24 hr tablet Indications: Chronic migraine without aura without status migrainosus, not intractable Take 2 tablets (300 mg) by mouth once daily. Take with food. 60 tablet 3 06/22/2023 Active Start: 04-10-2023 End: 06-22-2023 take 1 tablet by mouth once daily at mealtime venlafaxine 225 mg 24 hr tablet Take 1 tablet (225 mg) by mouth once daily. Take with food. 0 04/10/2023 06/22/2023 Discontinued (Reorder) Start: 08-29-2022 take 1 tablet by trudi th every twenty-four hours Venlafaxine HCl ER 225 MG 1 tablet with food Orally Once a day for 30 days Aug, Active Start: 06-17-2022 End: 06-22-2023 take 1 tablet by mouth once daily at bedtime venlafaxine 75 mg 24 hr tablet Take 1 tablet (75 mg) by mouth once daily at bedtime. 0 06/17/2022 06/22/2023 Discontinued (Med List Cleanup) Start: 07-29-2021 End: 06-30-2023 take 1 capsule by mouth twice daily Venlafaxine 150 mg capsule,extended release 24hr Discontinued 75 MG PO Twice daily July 29, 2021 12:00am June 30, 2023 3:36pm Start: 07-29-2021 End: 06-30-2023 take 75 mg by mouth twice daily Venlafaxine Discontinu ed 75 MG PO Twice daily July 29, 2021 12:00am June 30, 2023 3:36pm Start: 12-06-2020 Venlafaxine HC l - 75 MG Oral Tablet Quantity: 0 Refills: 0 Ordered: 06-Dec-2020 DO Start : 06-Dec-2020 Active End: 06-22-2023 take 1 capsule by mouth once daily venlafaxine XR (Effexor XR) 150 mg 24 hr capsule Take 1 capsule (150 mg) by mouth once daily. 0 06/22/2023 Discontinued (Med List Cleanup) take 1 capsule by mo uth every twenty-four hours Effexor XR 150 MG Oral Capsule Extended Release 24 Hour TAKE 225 CAPSULE Quantity: 0 Refills: 0 Ordered: 14-Apr-2022 DO Active Effexor Active take 1 tablet by trudi th twice daily Venlafaxine HCl ER 75 MG TAKE 1 TABLET BY MOUTH TWICE A DAY for 90 Active End: 04-10-2021 take 1 tablet by mouth every twenty-four hours Venlafaxine HCl 75 MG 1 tablet with food Orally Once a day Active take 1 tablet by trudi th every twenty-four hours Venlafaxine HCl 100 MG 1 tablet with food Orally Once a day Active verapamil hydrochloride 120 mg oral tablet (20 sources) Calcium Channel Erika Start: 09-16-2024 take 1 capsule by mouth twice daily verapamil 120 mg Cap-ER 120 mg = 1 cap(s), Oral, BID, Refills(s) 0 Start Date: 01/18/24 Status: Ordered Start: 03-16-2020 End: 08-15-2024 take 1 tablet by mouth once daily at bedtime verapamil (Calan) 120 mg tablet Indications: Chronic migraine without aura, intractable, with status migrainosus TAKE 1 TABLET BY MOUTH ONCE DAILY AT BEDTIME. 90 tablet 3 08/15/2024 Active Start: 09-15-2019 End: 03-24-2023 take 1 tablet by mouth once daily verapamil SR (Calan-SR) 120 mg ER tablet Take 1 tablet (120 mg) by mouth once daily. 0 09/15/2019 03/24/2023 Discontinued (Med List Cleanup) Start: 03-14-2019 take 1 tablet by trudi th once daily verapamil (CALAN SR) 120 MG extended release tablet Take 1 tablet by mouth daily 30 tablet 5 03/14/2019 Active Start: 12-16-2018 take 1 tablet by trudi th once daily verapamil (CALAN SR) 120 MG extended release tablet Take 1 tablet by mouth daily 30 tablet 5 12/16/2018 Active take 1 tablet by trudi th every eight hours Verapamil HCl 120 MG 1 tablet Orally Three times a day Active Vitamin B 12 100 MCG (16 sources) Vitamin B 12 100 MCG as directed Orally Active vitamin B12 (20 sources) Vitamin B12 Start: 12-04-2023 take 1000 ug by mouth once daily Vitamin B12 1,000 mcg, Oral, Daily, Refills(s) 0 Start Date: 12/04/23 Status: Ordered Start: 12-04-2023 Vitamin B12 Re fills(s) 0 Start Date: 12/04/23 Status: Ordered End: 08-17-2024 take 1 tablet by mouth once daily cyanocobalamin (Vitamin B-12) 1,000 mcg tablet Take 1 tablet (1,000 mcg) by mouth once daily. As directed 08/17/2024 Discontinued (Therapy completed) Water For Inhal With Nebuliz er kit (3 sources) Start: 07-07-2024 Water For Inha l With Nebulizer kit Active EACH INHALATION July 07, 2024 1:00am Completed/Discontinued Medications Medication Drug Class(es) Dates Sig (Normalized) Sig (Original) acetaminophen 325 mg / HYDROcodone bitartrate 5 mg oral tablet (20 sources) Opioid Agonist Start: 05-02-2024 End: 07-25-2024 take 1 tablet by mouth every eight hours as needed HYDROcodone-acetami nophen ([place]) 5-325 mg tablet Take 1 tablet by mouth every 8 hours if needed for pain. 05/02/2024 07/25/2024 Discontinued (Med List Cleanup) Start: 05-02-2024 End: 06-01-2024 [place] 325 mg-5 mg oral table t 1 tab(s), Oral, TID as needed for pain for 30 day(s), 90 tab(s), Refill(s) 0, [facility]acy #[id number], 175, cm, 01/18/24 11:11:00 EDT, Height/Length Dosing, 74, kg, 01/18/24 11:11:00 EDT, Weight Dosing Start Date: 05/02/24 Stop Date: 06/01/24 Status: Ordered Start: 01-18-2024 [place]worth 325 mg-5 mg oral tablet 0.5 tab(s), Oral, TID as needed for pain, 45 tab(s), Refill(s) 0, [id number], 175, cm, 01/18/24 11:11:00 EDT, Height/Length Dosing, 74, kg, 01/18/24 11:11:00 EDT, Weight Dosing Start Date: 01/18/24 Status: Ordered Start: 12-04-2023 [place]worth 325 mg-5 mg oral tablet 1 tab(s), Oral, TID as needed for pain, 90 tab(s), Refill(s) 0, [facility]/pharmacy #[id number], 175, cm, 12/04/23 10:56:00 EDT, Height/Length Dosing, 74, kg, 12/04/23 10:56:00 EDT, Weight Dosing Start Date: 12/04/23 Status: Ordered Start: 06-30-2023 End: 05-31-2024 take 1 tablet by mouth every six hours as needed Hydrocodone-Acetaminophen 5-325 mg tablet Discontinued 1 TAB PO Every 6 hours as needed June 30, 2023 1:00am May 31, 2024 2:17pm Start: 02-02-2024 [place]worth 325 mg-5 mg oral tablet 1 tab(s), Oral, TID as needed for pain, 90 tab(s), Refill(s) 0, [id number], 175, cm, 06/05/23 14:54:00 EST, Height/Length Dosing, 76.7, kg, 06/05/23 14:54:00 EST, Weight Dosing Start Date: 06/05/23 Status: Ordered Start: 04-08-2023 [place] 325 mg-5 mg oral tablet 1 tab(s), Oral, TID as needed for pain, 90 tab(s), Refill(s) 0, [id number], 175, cm, 04/08/23 13:30:00 EST, Height/Length Dosing, 83.9, kg, 01/19/23 11:34:00 EDT, Weight Dosing Start Date: 04/08/23 Status: Ordered Start: 2023 [place]worth 325 mg-5 mg oral tablet 1 tab(s), Oral, TID as needed for pain, 90 tab(s), Refill(s) 0, [facility]/pharmacy #[id number], 175, cm, 01/19/23 11:34:00 EDT, Height/Length Dosing, 83.9, kg, 01/19/23 11:34:00 EDT, Weight Dosing Start Date: 01/19/23 Status: Ordered Start: 11-27-2022 [place]worth 325 mg-5 mg oral tablet 1 tab(s), Oral, TID as needed for pain, 90 tab(s), Refill(s) 0, [facility]/pharmacy #[id number], 175, cm, 11/27/22 10:15:00 EDT, Height/Length Dosing, 85.5, kg, 11/11/22 13:55:00 EDT, Weight Dosing Start Date: 11/27/22 Status: Ordered Start: 05-19-2022 acetaminophen- hydrocodone 325 mg-5 mg oral tablet Refill(s) 0 Start Date: 05/19/22 Status: Ordered Start: 07-29-2021 End: 01-02-2022 take 1 tablet by mouth three times daily as needed for pain Hydrocodone-Acetaminophen 5-325 mg tablet Discontinued 1 TAB PO Three times daily as needed for Pain July 29, 2021 12:00am January 02, 2022 2:01pm take 1 tablet by trudi three times daily as needed for pain HYDROcodone-acetaminophen (NORCO) 5-325 MG per tablet Take 1 tablet by mouth 3 times daily as needed for Pain. . 0 Active acetaminophen 325 mg / oxyCODONE hydrochloride 5 mg oral tablet (9 sources) Opioid Agonist Start: 07-06-2024 End: 08-17-2024 oxyCODONE-acetaminophen (Percocet) 5-325 mg tablet TAKE 1/2 TABLET UP TO 3 TIMES PER DAY NEEDED FOR PAIN 07/06/2024 08/17/2024 Discontinued (Therapy completed) Start: 12-04-2023 End: 01-03-2024 Percocet 5 mg-325 mg oral ta blet 0.5 tab(s), Oral, TID as needed for pain for 30 day(s), 45 tab(s), Refill(s) 0, [facility]/pharmacy #[id number], 175, cm, 12/04/23 10:56:00 EDT, Height/Length Dosing, 74, kg, 12/04/23 10:56:00 EDT, Weight Dosing Start Date: 12/04/23 Stop Date: 01/03/24 Status: Ordered End: 03-08-2024 take 1 tablet by mouth every six hours as needed oxyCODONE-acetaminophen (Percocet) 5-325 mg tablet Take 1 tablet by mouth every 6 hours if needed for severe pain (7 - 10). 03/08/2024 Discontinued (Med List Cleanup) 12 hr acetaZOLAMIDE 500 mg extended release oral capsule (20 sources) Carbonic Anhydrase Inhibitor Start: 02-26-2023 End: 07-25-2024 take 1 capsule by mouth every week acetaZOLAMIDE (Diamox) 500 mg 12 hr capsule Indications: Chronic migraine without aura, intractable, with status migrainosus TAKE 1 CAPSULE BY MOUTH AT NIGHT DURING A STORMY WEEK 90 capsule 02/26/2023 07/25/2024 Discontinued (Med List Cleanup) Start: 10-15-2022 take 1 capsule by mo [facility] at bedtime acetaZOLAMIDE 500 mg oral capsule, extended release 500 mg = 1 cap(s), Oral, Bedtime, Refills(s) 0 Start Date: 11/27/22 Status: Ordered Start: 11-06-2021 End: 02-26-2023 take 1 capsule by mouth once daily at bedtime acetaZOLAMIDE (Diamox) 500 mg 12 hr capsule Take 1 capsule (500 mg) by mouth once daily at bedtime. During a week 0 11/06/2021 02/26/2023 Discontinued Start: 11-06-2021 End: 02-26-2022 take 1 capsule by mouth every twelve hours acetaZOLAMIDE ER 500 MG Oral Capsule Extended Release 12 Hour 1 at night durig a . Quantity: 30 Refills: 6 Ordered: 06-Nov-2021 Jodie Matthews MD Start : 06-Nov-2021 End : 26-Feb-2022 Complete acetylcysteine 100 mg/ml inhalation solution (20 sources) Antidote, Mucolytic, Antidote for Acetaminophen Overdose Start: 09-24-2020 take 1 mL by inhalation once Acetylcysteine 10 % Inhalation Solution INHALE 1 ML Every twelve hours Quantity: 1 Refills: 0 Ordered: 31-Oct-2020 Courtney Brown MD Start : 24-Sep-2020 Active AeroChamber Z-Stat Plus (12 sources) Start: 03-31-2017 AeroChamber Z-Stat Plus as directed Quantity: 1 Refills: 0 Courtney Brown MD Start : 31-Mar-2017 Active AeroChamber Z-Stat Plus (1 source) Start: 03-31-2017 AeroChamber Z-Stat Plus as directed Quantity: 1 Refills: 0 Courtney Brown MD Start : 31-Mar-2017 Active Aimovig 140 MG/ML Subcutaneous Solution Auto-injector (5 sources) Start: 11-07-2019 inject 1 mL by subcutaneous injection every 30 days Aimovig 140 MG/ML Subcutaneous Solution Auto-injector Inject 1ml subcutaneously every 30 days Quantity: 1 Refills: 6 Jodie Matthews MD Start : 07-Nov-2019 Active Milliliter [id number] 200 actuat albuterol 0.09 mg/actuat metered dose inhaler (20 sources) beta2-Adrenergic Agonist Start: 01-02-2022 End: 06-30-2023 take 1 puff(s) by inhalation every four hours as needed Albuterol Sulfate (Proair Hfa) 90 mcg/actuation Hfa Aerosol Inhaler Discontinued 2 PUFF INHALATION Q4H as needed for breathing January 02, 2022 12:00am June 30, 2023 3:38pm Start: 04-01-2021 End: 05-16-2021 Albuterol Sulfate (2.5 MG/3M L) 0.083% Inhalation Nebulization Solution USE 1 UNIT DOSE EVERY 4-6 HOURS NEEDED FOR WHEEZING . Quantity: 0 Refills: 0 Ordered: 01-Apr-2021 Courtney Brown MD Start : 01-Apr-2021 End : 16-May-2021 Complete Start: 12-06-2020 Albuterol Sulf ate HFA 108 (90 Base) MCG/ACT Inhalation Aerosol Solution Quantity: 0 Refills: 0 Ordered: 06-Dec-2020 DO Start : 06-Dec-2020 Active Start: 04-21-2019 albuterol (PRO VENTIL) (2.5 MG/3ML) 0.083% nebulizer solution Take 3 mLs by nebulization every 6 hours as needed for Wheezing 120 each 11 04/21/2019 Active Start: 04-19-2019 albuterol (PRO VENTIL) nebulizer solution 2.5 mg Start: 09-11-2015 take 2 puff(s) by in halation every six hours ProAir HFA 108 (90 Base) MCG/ACT Inhalation Aerosol Solution USE 2 PUFFS EVERY 6 HOURS DIRECTED. Quantity: 1 Refills: 0 Courtney Brown MD Start : 11-Sep-2015 Active 8.5 GM Inhaler albuterol 90 mcg /actuation inhaler every 4 hours. Active End: 06-22-2023 take 2 puff(s) by inhalation every four hours for wheezing albuterol 90 mcg/actuation inhaler Inhale 2 puffs every 4 hours if needed for wheezing. 0 06/22/2023 Discontinued (Med List Cleanup) Albuterol Sulfat e (2.5 MG/3ML) 0.083% Inhalation Nebulization Solution Refills: 0 DO Active albuterol (PROVE NTIL) (2.5 MG/3ML) 0.083% nebulizer solution Take 2.5 mg by nebulization every 6 hours as needed for Wheezing 0 Active take 2 puff(s) by in halation every four hours as needed Albuterol Sulfate (PROAIR HFA IN) Indications: 2 puffs every 4 hours prn Inhale into the lungs 0 Active albuterol 0.833 mg/ml / ipratropium bromide 0.167 mg/ml inhalation solution (3 sources) Anticholinergic, beta2-Adrenergic Agonist Start: 09-08-2020 End: 09-08-2020 ipratropium-albuterol (DUONEB) nebulizer solution 2 ampule Start: 12-26-2018 ipratropium-al buterol (DUONEB) nebulizer solution 1 ampule Start: 12-26-2018 End: 12-26-2018 ipratropium-albuterol (DUONE B) 0.5-2.5 (3) MG/3ML nebulizer solution ALPRAZolam 0.25 mg oral tablet (20 sources) Benzodiazepine Start: 07-29-2021 End: 06-30-2023 Alprazolam 0.25 mg tablet Discontinued 40 MG PO Twice daily as needed for Anxiety July 29, 2021 12:00am June 30, 2023 3:38pm Start: 07-29-2021 End: 06-30-2023 take 40 mg by mouth twice daily Alprazolam Discontinued 40 MG PO Twice daily July 29, 2021 12:00am June 30, 2023 3:38pm Start: 07-29-2021 take 0.25 mg by mout h twice daily Alprazolam Active 0.25 MG PO Twice daily July 29, 2021 10:31am amoxicillin 875 mg / clavulanate 125 mg oral tablet (3 sources) Penicillin-class Antibacterial Start: 11-06-2020 End: 11-22-2020 take 1 tablet by mouth once daily Amoxicillin-Pot Clavulanate 875-125 MG Oral Tablet TAKE 1 TABLET EVERY 12 HOURS DAILY. Quantity: 20 Refills: 0 Ordered: 06-Nov-2020 Courtney Brown MD Start : 06-Nov-2020 End : 22-Nov-2020 Complete aspirin 81 mg chewable tablet (20 sources) Platelet Aggregation Inhibitor, Nonsteroidal Anti-inflammatory Drug Start: 07-29-2021 End: 01-02-2022 take 1 tablet by mouth once daily Aspirin 81 mg Tablet,Chewable Discontinued 81 MG PO Daily July 29, 2021 12:00am January 02, 2022 2:01pm Start: 01-11-2018 take 1 tablet by trudi th once daily Aspirin 81 MG Oral Tablet Delayed Release TAKE 1 TABLET DAILY. Refills: 0 Courtney Brown MD Start : 11-Jan-2018 Active take 1 tablet by trudi th twice daily aspirin 81 MG tablet Take 81 mg by mouth 2 times daily 0 Active take 1 tablet by trudi th once daily aspirin 81 MG tablet Take 81 mg by mouth daily 0 Active azithromycin (ZITHROMAX) 500 mg in D5W 250ml addavial (1 source) Start: 12-26-2018 End: 12-26-2018 azithromycin (ZITHROMAX) 500 mg in D5W 250ml addavial B-12 - up to 1000 mcg (20 sources) Start: 01-08-2023 B-12 - up to 1 000 mcg Jan, 1000 mcg Start: 11-11-2022 B-12 - up to 1 000 mcg Nov, 1000 mcg Start: 08-25-2022 B-12 - up to 1 000 mcg Aug, 1000 mcg Start: 06-25-2022 B-12 - up to 1 000 mcg Jun, 1000 mcg Start: 05-23-2022 B-12 - up to 1 000 mcg May, 1000 mcg barium sulfate 60 % suspension 355 mL (1 source) Start: 05-16-2019 End: 05-16-2019 barium sulfate 60 % suspension 355 mL benzonatate 200 mg oral capsule (18 sources) Non-narcotic Antitussive Start: 12-06-2020 take 1 capsule by mouth three times daily as needed Benzonatate 200 MG Oral Capsule TAKE 1 CAPSULE 3 TIMES DAILY NEEDED. Quantity: 30 Refills: 0 Ordered: 06-Dec-2020 Carol Ann Hopson Start : 06-Dec-2020 Active Start: 01-04-2019 take 1 capsule by [facility] three times daily as needed Benzonatate 200 MG Oral Capsule TAKE 1 CAPSULE 3 TIMES DAILY NEEDED. Quantity: 90 Refills: 0 Courtney Brown MD Start : 04-Jan-2019 Active Biotene Dry Mouth Mouth/Throat Gum (8 sources) Start: 01-11-2018 Biotene Dry Mo uth Mouth/Throat Gum USE DIRECTED. Quantity: 2 Refills: 3 Courtney Brown MD Start : 11-Jan-2018 Active 16 Gum Box Biotene OralBalance Dry Mouth Mouth/Throat Gel (8 sources) Start: 01-11-2018 Biotene OralBalance Dry Mouth Mouth/Throat Gel USE DIRECTED ON PACKAGE Quantity: 1 Refills: 5 Courtney Brown MD Start : 11-Jan-2018 Active 42 GM Tube Breztri Aerosphere 160-9-4.8 MCG/ACT Inhalation Aerosol (2 sources) Start: 05-08-2020 take 2 puff(s) by inhalation once Breztri Aerosphere 160-9-4.8 MCG/ACT Inhalation Aerosol INHALE 2 PUFFS Every twelve hours Quantity: 1 Refills: 5 Courtney Brown MD Start : 08-May-2020 Active 10.7 GM Inhaler budesonide 0.25 mg/ml inhalation suspension (20 sources) Corticosteroid Start: 12-07-2023 End: 12-06-2024 take 2 mL by mouth twice daily budesonide (Pulmicort) 0.5 mg/2 mL nebulizer solution Indications: Asthma, severe persistent, poorly-controlled, with acute exacerbation (Multi) Take 2 mL (0.5 mg) by nebulization 2 times a day. Rinse mouth with water after use to reduce aftertaste and incidence of candidiasis. Do not swallow. 60 mL 11 12/07/2023 08/17/2024 Discontinued (Therapy completed) Start: 09-23-2021 take 1 dose by inhal ation twice daily Budesonide 0.5 MG/2ML Inhalation Suspension INHALE 1 VIAL VIA NEBULIZER TWICE A DAY Quantity: 360 Refills: 3 Ordered: 23-Sep-2021 Rich Magana MD Start : 23-Sep-2021 Active Start: 09-16-2021 take 1 dose by inhal ation twice daily Budesonide 0.5 MG/2ML Inhalation Suspension USE 1 VIAL VIA NEBULIZER TWICE A DAY Quantity: 120 Refills: 11 Ordered: 16-Sep-2021 Rich Magana MD Start : 16-Sep-2021 Active Start: 07-29-2021 End: 06-30-2023 take 0.5 mg by inhalation twice daily Budesonide 0.5 mg/2 mL suspension for nebulization Discontinued 0.5 MG INHALATION Twice daily July 29, 2021 12:00am June 30, 2023 3:38pm Start: 07-29-2021 End: 07-29-2021 Budesonide 0.5 mg/2 mL suspe nsion for nebulization Discontinued MG July 29, 2021 12:00am July 29, 2021 10:31am Start: 05-07-2021 take 1 [IU] by inhal ation twice daily Budesonide 0.5 MG/2ML Inhalation Suspension USE 1 UNIT DOSE VIA NEBULIZER TWO TIMES A DAY Quantity: 120 Refills: 12 Ordered: 16-Sep-2021 Alpesh BHATTI, Rich Rowan Start : 07-May-2021 Active take 2 mL by inhalat ion once daily Budesonide 0.5 MG/2ML 2 mL Inhalation Once a day Active Budesonide / formoterol (20 sources) Corticosteroid, beta2-Adrenergic Agonist Start: 10-08-2020 End: 03-24-2023 take 2 puff(s) by inhalation twice daily budesonide-formoteroL (Symbicort) 160-4.5 mcg/actuation inhaler Inhale 2 puffs 2 times a day. 0 10/08/2020 03/24/2023 Discontinued (Med List Cleanup) Start: 10-08-2020 take 2 puff(s) by in halation twice daily budesonide-formoteroL (Symbicort) 160-4.5 mcg/actuation inhaler Inhale 2 puffs 2 times a day. 0 10/08/2020 Active Start: 04-19-2020 take 2 puff(s) by mo [facility] twice daily budesonide-formoterol (SYMBICORT) 160-4.5 MCG/ACT AERO Indications: Severe persistent asthma without complication INHALE 2 PUFFS BY MOUTH TWICE A DAY 3 Inhaler 1 04/19/2020 Active Start: 11-21-2019 take 2 puff(s) by in halation twice daily budesonide-formoterol (SYMBICORT) 160-4.5 MCG/ACT AERO Indications: Severe persistent asthma without complication Inhale 2 puffs into the lungs 2 times daily 1 Inhaler 5 11/21/2019 Active Start: 05-23-2019 take 2 puff(s) by in halation twice daily budesonide-formoterol (SYMBICORT) 160-4.5 MCG/ACT AERO Indications: Severe persistent asthma without complication Inhale 2 puffs into the lungs 2 times daily 1 Inhaler 5 05/23/2019 Active Start: 01-28-2019 take 2 puff(s) by in halation twice daily budesonide-formoterol (SYMBICORT) 160-4.5 MCG/ACT AERO Inhale 2 puffs into the lungs 2 times daily 1 Inhaler 0 01/28/2019 Active take 2 puff(s) by in halation twice daily Symbicort 160-4.5 MCG/ACT 2 puffs Inhalation Twice a day Not-Taking Symbicort 160-4. 5 MCG/ACT Inhalation Aerosol Refills: 0 Active cefdinir 300 mg oral capsule (7 sources) Cephalosporin Antibacterial Start: 12-06-2020 Cefdinir 300 MG Oral Capsule Quantity: 0 Refills: 0 Ordered: 06-Dec-2020 DO Start : 06-Dec-2020 Active cefTRIAXone (ROCEPHIN) 1 g in sterile water 10 mL IV syringe (1 source) Start: 12-26-2018 End: 12-26-2018 cefTRIAXone (ROCEPHIN) 1 g in sterile water 10 mL IV syringe clotrimazole 10 mg oral lozenge (9 sources) Azole Antifungal Start: 12-02-2023 End: 07-07-2024 take 10 mg by mouth five times daily Clotrimazole 10 mg aleksey Discontinued 10 MG PO Five times daily December 02, 2023 12:00am July 07, 2024 11:41am docusate sodium 100 mg oral capsule (20 sources) Start: 01-02-2022 End: 06-30-2023 take 1 capsule by mouth twice daily as needed for constipation Docusate Sodium 100 mg Capsule Discontinued 100 MG PO Twice daily as needed for Constipation January 02, 2022 12:00am June 30, 2023 3:38pm DULoxetine 20 mg delayed release oral capsule (20 sources) Serotonin and Norepinephrine Reuptake Inhibitor Start: 12-04-2023 End: 08-17-2024 DULoxetine (Cymbalta) [address] capsule Take by mouth. 12/04/2023 08/17/2024 Discontinued (Therapy completed) Start: 06-22-2023 End: 07-20-2023 DULoxetine (Cymbalta) [address] capsule Indications: Chronic migraine without aura without status migrainosus, not intractable TAKE 2 CAPSULES ONCE DAILY FOR 14 DAYS, THEN 1 CAPSULE ONCE DAILY FOR 14 DAYS 126 capsule 1 07/13/2023 Active Start: 04-14-2019 End: 06-22-2023 take 1 capsule by mouth once daily DULoxetine (Cymbalta) [address] capsule Take 1 capsule (60 mg) by mouth once daily. 0 08/09/2019 06/22/2023 Discontinued (Reorder) Start: 03-21-2019 take 1 capsule by mo [facility] once daily DULoxetine (CYMBALTA) 30 MG extended release capsule Indications: Neuropathy TAKE 1 CAPSULE BY MOUTH EVERY DAY 30 capsule 0 03/21/2019 Active 1 ml erenumab-aooe 140 mg/ml auto-injector (20 sources) Start: 11-07-2019 End: 06-30-2023 Erenumab-Aooe (Aimovig Autoinjector) 140 mg/mL auto-injector Discontinued 140 MG SUBCUT As Directed July 29, 2021 12:00am June 30, 2023 3:38pm next dose due 08/02 Start: 03-14-2019 inject 1 mL by subcu taneous injection every 30 days erenumab (Aimovig Autoinjector) 140 mg/mL injection Indications: Chronic migraine without aura without status migrainosus, not intractable Inject 1 mL (140 mg) under the skin every 30 (thirty) days. As directed 1 mL 6 06/19/2023 Active Start: 04-21-2018 Aimovig (140 M G Dose) 70 MG/ML SOAJ Inject 2 ml divided into 2 injection subcutaneously, 2 inches apart once monthly Quantity: 2 Refills: 6 Jodie Matthews MD Start : 21-Apr-2018 Active Start: 04-21-2018 Aimovig 140 Do se 70 MG/ML Subcutaneous Solution Auto-injector Inject 2 ml divided into 2 injection subcutaneously, 2 inches apart once monthly Quantity: 2 Refills: 6 Jodie Matthews MD Start : 21-Apr-2018 Active Fasenra Pen 30 MG/ML Subcutaneous Solution Auto-injector (2 sources) Start: 11-15-2019 Fasenra Pen 30 MG/ML Subcutaneous Solution Auto-injector INJECT 30 MG Subcutaneous Quantity: 0 Refills: 0 Courtney Brown MD Start : 15-Nov-2019 Admin Requested ferrous sulfate 325 mg oral tablet (20 sources) End: 04-08-2023 take 1 tablet by mouth once daily ferrous sulfate 325 (65 Fe) MG tablet Take 1 tablet by mouth once daily. As directed 0 04/08/2023 Discontinued (Therapy completed) FLUoxetine 10 mg oral capsule (9 sources) Serotonin Reuptake Inhibitor Start: 12-03-2017 take 2 capsules by mouth once daily, then take 1 capsule by mouth once daily FLUoxetine HCl - 10 MG Oral Capsule TAKE 2 CAPSULES DAILY FOR 2 weeks then take 1 pill daily for 2 weeks Quantity: 30 Refills: 0 Courtney Brown MD Start : 03-Dec-2017 Active 30 actuat fluticasone furoate 0.1 mg/actuat / umeclidinium 0.0625 mg/actuat / vilanterol 0.025 mg/actuat dry powder inhaler (20 sources) Anticholinergic, Corticosteroid, beta2-Adrenergic Agonist Start: 05-10-2020 Trelegy Ellipta 100-62.5-25 MCG/INH Inhalation Aerosol Powder Breath Activated Please specify directions, refills and quantity Quantity: 1 Refills: 0 Courtney Brown MD Start : 10-May-2020 Active take 1 puff(s) by inhalation onc e daily Trelegy Ellipta 100-62.5-25 MCG/INH AEPB INHALE 1 PUFFS Daily Quantity: 1 Refills: 11 Ordered: 16-Sep-2021 Rich Magana MD Active take 1 puff(s) by inhalation onc e daily Trelegy Ellipta 100-62.5-25 MCG/INH 1 puff Inhalation Once a day Active folic acid 1 mg oral tablet (20 sources) Start: 01-14-2022 End: 07-07-2024 take 1 tablet by mouth once daily Folic Acid 1 mg Tablet Discontinued 1 MG PO Daily July 17, 2022 9:20am July 07, 2024 11:41am take 1 tablet by trudi th every twenty-four hours Folate 400 MCG 1 tablet Orally Once a day Active gabapentin 300 mg oral capsule (20 sources) Anti-epileptic Agent Start: 01-02-2022 End: 01-14-2022 take 2 capsules by mouth four times daily Gabapentin 300 mg Capsule Discontinued 600 MG PO Four times daily January 02, 2022 12:00am January 14, 2022 10:09am Start: 01-02-2022 End: 01-14-2022 take 600 mg by mouth four times daily Gabapentin Discontinued 600 MG PO Four times daily January 02, 2022 12:00am January 14, 2022 10:09am Start: 01-13-2021 Gabapentin 600 MG Oral Tablet Quantity: 360 Refills: 0 Ordered: 13-Jan-2021 DO Start : 13-Jan-2021 Complete Start: 11-21-2018 gabapentin (NE URONTIN) 800 MG tablet 4 times daily. 6 11/21/2018 Active Start: 11-21-2018 gabapentin (NE URONTIN) 600 MG tablet 4 times daily. 6 11/21/2018 Active Start: 10-25-2018 End: 01-22-2020 take 1 tablet by mouth in the morning, then take 5 tablets by mouth once daily in the evening Gabapentin 800 MG Oral Tablet TAKE 1 TABLET am 5 pm and night DAILY. Quantity: 360 Refills: 1 Ordered: 16-May-2021 Mathew Miller MD Start : 25-Oct-2018 Active Start: 10-25-2018 take 1 tablet by rtudi four times daily Gabapentin 600 MG Oral Tablet TAKE 1 TABLET 4 TIMES DAILY Quantity: 360 Refills: 1 Ordered: 17-Oct-2020 Mathew Miller MD Start : 25-Oct-2018 Active Start: 09-01-2017 take 1 capsule by mo [facility] three times daily Gabapentin 300 MG Oral Capsule take 1 capsule by mouth three times a day Quantity: 165 Refills: 0 Mathew Miller MD Start : 23-Aug-2018 Active ibuprofen 800 mg oral tablet (11 sources) Nonsteroidal Anti-inflammatory Drug Start: 10-30-2020 take 1 tablet by mouth three times daily as needed Ibuprofen 800 MG Oral Tablet TAKE 1 TABLET 3 TIMES DAILY NEEDED. Quantity: 30 Refills: 0 Ordered: 30-Oct-2020 Courtney Brown MD Start : 30-Oct-2020 Active Iopamidol (3 sources) Radiographic Contrast Agent Start: 04-06-2019 End: 04-06-2019 iopamidol (ISOVUE-370) 76 % injection 75 mL Start: 12-21-2018 End: 12-21-2018 iopamidol (ISOVUE-370) 76 % injection 75 mL Start: 12-21-2018 End: 12-21-2018 iopamidol (ISOVUE-370) 76 % injection 18 mL Iron (3 sources) Iron TABS TAKE 1 TABLET ONCE DAILY. Quantity: 0 Refills: 0 Ordered: 05-Feb-2021 DO Active 2 ml ketorolac tromethamine 30 mg/ml injection (20 sources) Nonsteroidal Anti-inflammatory Drug, Cyclooxygenase Inhibitor Start: 09-12-2024 End: 09-12-2024 ketorolac (Toradol) injection 60 mg Start: 09-12-2024 End: 09-12-2024 inject 1 mL by intramuscular injection once as needed for pain 60 mg, intramuscular, Once, On Thu09/12/24 at 1545, For 1 dose, Administer 2 IM injections, each containing 1 mL (30 MG of ketorolac) into each buttock. , If ordered PRN for pain, nurse is permitted to administer this medication for higher pain scores based on patient preference? Yes Start: 09-12-2024 End: 09-17-2024 take 1 tablet by mouth every six hours ketorolac (Toradol) 10 mg tablet Indications: Intractable chronic migraine without aura and with status migrainosus Take 1 tablet (10 mg) by mouth every 6 hours for 5 days. 20 tablet 09/12/2024 09/17/2024 Active Start: 08-10-2024 End: 08-10-2024 ketorolac (Toradol) injectio n 60 mg Start: 08-10-2024 End: 08-10-2024 inject 60 mg by intramuscular injection once as needed for pain 60 mg, intramuscular, Once, On Thu08/10/24 at 1300, For 1 dose, If ordered PRN for pain, nurse is permitted to administer this medication for higher pain scores based on patient preference? Yes Start: 07-06-2024 End: 07-06-2024 ketorolac (Toradol) injectio n 60 mg Start: 07-06-2024 End: 07-06-2024 inject 60 mg by intramuscular injection once as needed for pain 60 mg, intramuscular, Once, On Thu07/06/24 at 1515, For 1 dose, If ordered PRN for pain, nurse is permitted to administer this medication for higher pain scores based on patient preference? Yes Start: 06-02-2024 End: 06-02-2024 ketorolac (Toradol) injectio n 60 mg Start: 06-02-2024 End: 06-02-2024 inject 1 mL by intramuscular injection once as needed for pain 60 mg, intramuscular, Once, On Padmini 06/02/24 at 1445, For 1 dose, Administer 2 IM injections, each containing 1 mL (30 MG of ketorolac) into each buttock. , If ordered PRN for pain, nurse is permitted to administer this medication for higher pain scores based on patient preference? Yes Start: 05-31-2024 End: 08-16-2024 take 1 tablet by mouth every six hours ketorolac (Toradol) 10 mg tablet Indications: Intractable chronic migraine without aura and with status migrainosus Take 1 tablet (10 mg) by mouth every 6 hours for 5 days. 20 tablet 08/11/2024 08/16/2024 Start: 05-11-2024 End: 05-16-2024 take 1 tablet by mouth every six hours ketorolac (Toradol) 10 mg tablet Indications: Intractable chronic migraine without aura and with status migrainosus Take 1 tablet (10 mg) by mouth every 6 hours for 5 days. 20 tablet 05/11/2024 05/16/2024 Active Start: 05-11-2024 End: 05-11-2024 ketorolac (Toradol) injectio n 60 mg Start: 05-11-2024 End: 05-11-2024 inject 60 mg by intramuscular injection once as needed for pain 60 mg, intramuscular, Once, On Thu05/11/24 at 1200, For 1 dose, If ordered PRN for pain, nurse is permitted to administer this medication for higher pain scores based on patient preference? Yes Start: 04-07-2024 End: 04-07-2024 ketorolac (Toradol) injectio n 60 mg Start: 04-07-2024 End: 04-07-2024 inject 1 mL by intramuscular injection once as needed for pain 60 mg, intramuscular, Once, On Padmini 04/07/24 at 1545, For 1 dose, Administer 2 IM injections, each containing 1 mL (30 MG of ketorolac) into each buttock. , If ordered PRN for pain, nurse is permitted to administer this medication for higher pain scores based on patient preference? Yes Start: 04-07-2024 End: 04-12-2024 take 1 tablet by mouth every six hours ketorolac (Toradol) 10 mg tablet Indications: Chronic migraine without aura without status migrainosus, not intractable Take 1 tablet (10 mg) by mouth every 6 hours for 5 days. 20 tablet 04/07/2024 04/12/2024 Active Start: 01-11-2024 End: 01-16-2024 ketorolac (Toradol) injectio n 60 mg Start: 01-11-2024 End: 01-16-2024 take 1 tablet by mouth every six hours ketorolac (Toradol) 10 mg tablet Indications: Chronic migraine without aura, intractable, with status migrainosus Take 1 tablet (10 mg) by mouth every 6 hours for 5 days. 20 tablet 01/11/2024 01/16/2024 Active Start: 10-12-2023 End: 10-12-2023 ketorolac (Toradol) injectio n 60 mg Start: 10-12-2023 End: 10-12-2023 inject 60 mg by intramuscular injection once as needed for pain 60 mg, intramuscular, Once, On Thu10/12/23 at 1400, For 1 dose, If ordered PRN for pain, nurse is permitted to administer this medication for higher pain scores based on patient preference? Yes Start: 07-15-2023 End: 07-15-2023 ketorolac (Toradol) injectio n 60 mg Start: 07-15-2023 End: 07-15-2023 ketorolac (Toradol) injectio n 60 mg Start: 06-22-2023 End: 06-27-2023 ketorolac (Toradol) injectio n 60 mg Start: 04-15-2023 End: 04-15-2023 ketorolac (Toradol) injectio n 60 mg Start: 04-15-2023 End: 04-15-2023 ketorolac (Toradol) injectio n 60 mg Start: 03-24-2023 End: 03-24-2023 ketorolac (Toradol) injectio n 60 mg Start: 03-24-2023 End: 03-24-2023 ketorolac (Toradol) injectio n 60 mg Start: 01-21-2023 Ketorolac Trom ethamine 60 MG/2ML Intramuscular Solution INJECT 60 ML Intramuscular 30ml per 1 ml in bilateral gluteous muscles Quantity: 0 Refills: 0 Ordered: 21-Jan-2023 Jodie Matthews MD Start : 21-Jan-2023 Complete Start: 09-03-2022 Ketorolac Trom ethamine 60 MG/2ML Intramuscular Solution INJECT 60 ML Intramuscular 30ml per 1 ml in bilateral gluteous muscles Quantity: 0 Refills: 0 Ordered: 20-Oct-2022 Jodie Matthews MD Start : 20-Oct-2022 Complete Start: 06-02-2022 Ketorolac Trom ethamine 60 MG/2ML Intramuscular Solution INJECT 60 ML INTRAMUSCULAR 30ML PER 1 ML IN BILATERAL GLUTEOUS MUSCLES Quantity: 0 Refills: 0 Ordered: 02-Jun-2022 Jodie Matthews MD Start : 02-Jun-2022 Complete Start: 05-19-2022 take 1 tablet by trudi th four times daily as needed for pain ketorolac 10 mg Tab 10 mg = 1 tab(s), Oral, QID, PRN as needed for pain, Refills(s) 0 Start Date: 05/19/22 Status: Ordered Start: 02-26-2022 Ketorolac Trom ethamine 60 MG/2ML Intramuscular Solution INJECT 60 ML Intramuscular 30ml per 1 ml in bilateral gluteous muscles Quantity: 0 Refills: 0 Ordered: 26-Feb-2022 Jodie Matthews MD Start : 26-Feb-2022 Complete Start: 01-15-2022 Ketorolac Trom ethamine 60 MG/2ML Intramuscular Solution INJECT 60 ML Intramuscular 30ml per 1 ml in bilateral gluteous muscles Quantity: 0 Refills: 0 Ordered: 15-Jan-2022 Jodie Matthews MD Start : 15-Jan-2022 Complete Start: 09-16-2021 Ketorolac Trom ethamine 60 MG/2ML Intramuscular Solution INJECT 60 ML Intramuscular 30ml per 1 ml in bilateral gluteous muscles Quantity: 0 Refills: 0 Ordered: 16-Sep-2021 Jodie Matthews MD Start : 16-Sep-2021 Complete Start: 08-21-2021 Ketorolac Trom ethamine 60 MG/2ML Intramuscular Solution INJECT 60 ML Intramuscular 30ml per 1 ml in bilateral gluteous muscles Quantity: 0 Refills: 0 Ordered: 21-Aug-2021 Jodie Matthews MD Start : 21-Aug-2021 Complete Start: 02-21-2021 Ketorolac Trom ethamine 60 MG/2ML Intramuscular Solution INJECT 60 ML Intramuscular 30ml per 1 ml in bilateral gluteous muscles Quantity: 0 Refills: 0 Ordered: 21-Feb-2021 Jodie Matthews MD Start : 21-Feb-2021 Complete Start: 12-12-2020 Ketorolac Trom ethamine 60 MG/2ML Intramuscular Solution INJECT 60 ML Intramuscular 30ml per 1 ml in bilateral gluteous muscles Quantity: 0 Refills: 0 Ordered: 12-Dec-2020 Jodie Matthews MD Start : 12-Dec-2020 Complete Start: 11-22-2020 Ketorolac Trom ethamine 60 MG/2ML Intramuscular Solution INJECT 60 ML Intramuscular 30ml per 1 ml in bilateral gluteous muscles Quantity: 0 Refills: 0 Ordered: 22-Nov-2020 Jodie Matthews MD Start : 22-Nov-2020 Complete Start: 10-03-2020 Ketorolac Trom ethamine 60 MG/2ML Intramuscular Solution INJECT 60 ML Intramuscular 30ml per 1 ml in bilateral gluteous muscles Quantity: 0 Refills: 0 Ordered: 03-Oct-2020 Jodie Matthews MD Start : 03-Oct-2020 Complete Start: 08-18-2018 Ketorolac Trom ethamine 60 MG/2ML Intramuscular Solution INJECT 60 ML Intramuscular 30ml per 1 ml in bilateral gluteous muscles Refills: 0 Jodie Matthews MD Start : 18-Aug-2018 Admin Requested Start: 08-02-2018 End: 10-17-2023 ketorolac 10 mg Tab Refills( s) 0 Start Date: 05/19/22 Status: Ordered levoFLOXacin 500 mg oral tablet (16 sources) Quinolone Antimicrobial Start: 03-04-2022 take 1 tablet by mouth once daily levoFLOXacin 500 MG Oral Tablet TAKE 1 TABLET DAILY DIRECTED. Quantity: 10 Refills: 0 Ordered: 04-Mar-2022 Courtney Brown MD Start : 04-Mar-2022 Active patient can tolerate levaquin Start: 06-18-2021 take 1 tablet by trudi th once daily levoFLOXacin 500 MG Oral Tablet Take 1 tablet daily Quantity: 5 Refills: 0 Ordered: 18-Jun-2021 Courtney Brown MD Start : 18-Jun-2021 Active Patient has tolerated Levaquin in the past. Start: 03-24-2019 End: 04-03-2019 take 1 tablet by mouth once daily levofloxacin (LEVAQUIN) 500 MG tablet Take 1 tablet by mouth daily for 10 days 10 tablet 0 03/24/2019 04/03/2019 Active Start: 01-12-2019 End: 01-17-2019 take 1 tablet by mouth once daily levofloxacin (LEVAQUIN) 750 MG tablet Indications: Community acquired pneumonia of right middle lobe of lung (HCC) Take 1 tablet by mouth daily for 5 days 5 tablet 0 01/12/2019 01/17/2019 Active 5 ml lidocaine hydrochloride 40 mg/ml injection (1 source) Antiarrhythmic, Amide Local Anesthetic Start: 04-01-2019 End: 04-01-2019 lidocaine PF 4 % injection 4 mL Magnesium (11 sources) Start: 10-30-2020 take 1 tablet by mouth once daily Magnesium 400 MG Oral Tablet ONE PILL DAILY Quantity: 30 Refills: 0 Ordered: 30-Oct-2020 Courtney Brown MD Start : 30-Oct-2020 Active methylPREDNISolone 4 MG Oral Tablet Therapy Pack (7 sources) Start: 10-02-2021 End: 11-06-2021 methylPREDNISolone 4 MG Oral Tablet Therapy Pack Take as directed.; Quantity: 1 Refills: 0 Ordered: 25-Oct-2021 Jodie Matthews MD Start : 02-Oct-2021 End : 06-Nov-2021 Complete Start: 10-02-2021 methylPREDNISo lone 4 MG Oral Tablet Therapy Pack Take as directed.; Quantity: 1 Refills: 0 Ordered: 25-Oct-2021 Jodie Matthews MD Start : 02-Oct-2021 Active Start: 10-02-2021 methylPREDNISo lone 4 MG Oral Tablet Therapy Pack Take as directed.; Quantity: 1 Refills: 0 Ordered: 02-Oct-2021 Jodie Matthews MD Start : 02-Oct-2021 Active Start: 08-07-2021 methylPREDNISo lone 4 MG Oral Tablet Therapy Pack Take as directed.; Quantity: 1 Refills: 0 Ordered: 07-Aug-2021 Jodie Matthews MD Start : 07-Aug-2021 Active metroNIDAZOLE 500 mg oral tablet (11 sources) Nitroimidazole Antimicrobial Start: 08-22-2022 End: 08-29-2022 take 1 tablet by mouth twice daily metroNIDAZOLE (Flagyl) 500 mg tablet Take 1 tablet (500 mg) by mouth 2 times a day. 0 08/22/2022 08/29/2022 take 1 tablet by mouth once lamont y metroNIDAZOLE 500 MG 1 tablet Orally once a day for seven days Active montelukast 10 mg oral tablet (20 sources) Leukotriene Receptor Antagonist Start: 08-17-2015 End: 07-28-2023 take 1 tablet by mouth once daily Montelukast (Singulair) 10 mg Tablet Discontinued 10 MG PO Daily July 29, 2021 12:00am July 28, 2023 1:27pm Nebulizer/Tubing/Mo uthpiece KIT (1 source) Start: 09-13-2020 Nebulizer/Tubing/M outhpiece KIT USE DIRECTED dispense adult mask instead of mouthpiece Quantity: 1 Refills: 5 Courtney Brown MD Start : 13-Sep-2020 Active nitrofurantoin, macrocrystals 25 mg / nitrofurantoin, monohydrate 75 mg oral capsule (20 sources) Nitrofuran Antibacterial Start: 05-26-2019 End: 04-08-2023 take 1 capsule by mouth twice daily nitrofurantoin, macrocrystal-monoh ydrate, (Macrobid) 100 mg capsule Take 1 capsule (100 mg) by mouth twice a day. 0 05/26/2019 04/08/2023 Discontinued (Therapy completed) Start: 07-23-2018 take 1 capsule by mo uth once daily nitrofurantoin, macrocrystal-monohydrate , (MACROBID) 100 MG capsule TAKE 1 CAPSULE BY MOUTH EVERY DAY 10 03/31/2019 Active Normal saline (1 source) Start: 07-21-2017 Standish Saline Nasal Nasal Gel Apply twice a day to nasal membranes Quantity: 1 Refills: 3 Courtney Brown MD Start : 21-Jul-2017 Active 14.1 GM Tube Nurtec 75 MG Oral Tablet Disintegrating (3 sources) Start: 02-23-2020 take 1 tablet by mouth once daily as needed Nurtec 75 MG Oral Tablet Disintegrating 1 po qd prn Quantity: 8 Refills: 6 Jodie Matthews MD Start : 23-Feb-2020 Active nystatin 981461 unt/ml oral suspension (20 sources) Polyene Antifungal Start: 12-04-2023 take 1 mL by mouth every six hours nystatin 100,000 units/mL Oral Susp 100,000 unit(s) = 1 mL, Oral, q6hr, For an give as one milliliter to each side of mouth, Refills(s) 0 Start Date: 12/04/23 Status: Ordered Start: 02-06-2023 End: 03-08-2024 take 5 mL by mouth four times daily as needed nystatin (Mycostatin) 100,000 unit/mL suspension SWISH AND SWALLOW 5ML BY MOUTH 4 TIMES A DAY NEEDED 02/06/2023 03/08/2024 Discontinued (Med List Cleanup) Start: 05-11-2019 take 5 mL by mouth f our times daily nystatin (MYCOSTATIN) 994920 UNIT/ML suspension Take 5 mLs by mouth 4 times daily 150 mL 0 05/11/2019 Active Nystatin [id number] UNIT/ML SWISH AND SWALLOW 5 ML 4 TIMES A DAY NEEDED for 5 Active omalizumab (3 sources) Anti-IgE End: 04-08-2023 OMALIZUMAB SUBQ Inject under the skin. 0 04/08/2023 Discontinued (Therapy completed) OMALIZUMAB SUBQ Inject under the skin. 0 Active microencapsulated potassium chloride 20 meq extended release oral tablet (20 sources) Start: 07-29-2021 End: 06-30-2023 Potassium Chloride (Klor-Con M20) 20 mEq Tablet,Er Particles/Crystals Discontinued 20 MEQ PO Four times daily July 29, 2021 12:00am June 30, 2023 3:38pm Start: 04-13-2019 End: 11-16-2023 take 1 tablet by mouth twice daily potassium chloride CR 20 mEq ER tablet Take 1 tablet (20 mEq) by mouth 2 times a day. 04/13/2019 Active take 1 dose by mouth once daily at mealtime Klor-Con 20 MEQ 1 packet with food Orally Once a day Active take 1 tablet by trudi th twice daily Potassium Chloride Leidy ER 20 MEQ Oral Tablet Extended Release TAKE 1 TABLET 2 times daily Quantity: 0 Refills: 0 Ordered: 22-Sep-2017 Stephanie BHATTI, Courtney Rowan Active take 1 tablet by trudi th four times daily Potassium Chloride Leidy ER 20 MEQ Oral Tablet Extended Release TAKE 1 TABLET 4 TIMES DAILY Quantity: 0 Refills: 0 Ordered: 22-Sep-2017 Stephanie BHATTI, Courtney Rowan Active primidone 50 mg oral tablet (20 sources) Anti-epileptic Agent Start: 01-02-2022 End: 01-14-2022 Primidone 50 mg Tablet Discontinued 50 MG PO As Directed January 02, 2022 12:00am January 14, 2022 10:10am 50mg at noon, 250mg at dinner Start: 08-11-2019 take 3 tablets by mo [facility] once daily in the morning, then take 1 tablet by mouth once daily primidone (MYSOLINE) 50 MG tablet Indications: Mixed action and resting tremor , Action tremor TAKE 3 TABLETS BY MOUTH DAILY AT 7 AM AND TAKE ONE TABLET DAILY AT NOON 360 tablet 1 02/09/2020 Active Start: 08-03-2018 take 1 tablet by trudi once daily primidone (MYSOLINE) 250 MG tablet Take 1 tablet by mouth nightly 30 tablet 5 03/14/2019 Active Start: 02-01-2018 primidone (MYS OLINE) 50 MG tablet 3 tablets in the morning and 2 tablets in the afternoon 150 tablet 5 03/14/2019 Active take 1 tablet by trudi once daily in the morning Primidone 50 MG Oral Tablet TAKE 1 TABLET EVERY MORNING Refills: 0 DO Active primidone (MYSOL INE) 250 MG tablet Take 50 mg by mouth 2 times daily (with meals) 0 Active raNITIdine 300 mg oral tablet (20 sources) Histamine-2 Receptor Antagonist Start: 10-22-2017 take 1 tablet by mouth twice daily raNITIdine HCl - 300 MG Oral Tablet TAKE 1 TABLET TWICE DAILY. Refills: 0 Start : 22-Oct-2017 Active rimegepant 75 mg disintegrating oral tablet (17 sources) Start: 02-23-2020 Nurtec 75 MG Oral Tablet Disintegrating ALLOW 1 TABLET TO DISSOLVE ON OR UNDER THE TONGUE ONCE DAILY NEEDED FOR MIGRAINE. DO NOT EXCEED 1 TABLET PER 24 HOURS. Quantity: 8 Refills: 6 Ordered: 16-Aug-2020 Jodie Matthews MD Start : 23-Feb-2020 Active rizatriptan 10 mg oral tablet (20 sources) Serotonin-1b and Serotonin-1d Receptor Agonist Start: 01-02-2022 End: 03-06-2025 Rizatriptan 10 mg tablet Discontinued 10 MG PO As Directed January 02, 2022 12:00am July 07, 2024 11:45am Start: 11-07-2019 End: 07-30-2021 take 1 tablet by mouth every two hours as needed for headache Rizatriptan 10 mg tablet Discontinued 10 MG PO Q2H as needed for Headache July 29, 2021 12:00am July 30, 2021 9:27am Start: 06-11-2017 take 1 tablet by trudi th every two hours as needed, then take 3 tablets by mouth every twenty-four hours as needed Rizatriptan Benzoate 10 MG Oral Tablet TAKE 1 TABLET AT ONSET OF HEADACHE. MAY REPEAT EVERY 2 HOURS NEEDED. MAXIMUM 3 TABLETS IN 24 HOURS. Quantity: 12 Refills: 6 Jodie Matthews MD Start : 11-Jun-2017 Active take 1 tablet by trudi th every twenty-four hours Rizatriptan Benzoate 10 MG 1 tablet Orally Once a day Active saliva stimulant comb. no.7 (Biotene Oralbalance, glycerin,) gel (17 sources) Start: 01-11-2018 End: 08-17-2024 saliva stimulant comb. no.7 (Biotene Oralbalance, glycerin,) gel Take 42 g (1 Tube) by mouth. 01/11/2018 08/17/2024 Discontinued (Therapy completed) Start: 01-11-2018 saliva stimula nt comb. no.7 (Biotene Oralbalance, glycerin,) gel Take 42 g (1 Tube) by mouth. 01/11/2018 Active Start: 01-11-2018 saliva stimula nt comb. no.7 (Biotene Oralbalance, glycerin,) gel Take 42 g by mouth. 01/11/2018 Active Start: 01-11-2018 saliva stimula nt comb. no.7 (Biotene Oralbalance, glycerin,) gel Take 42 g by mouth. 0 01/11/2018 Active 1000 ml sodium chloride 9 mg /ml injection (20 sources) Start: 03-20-2021 Sodium Chlorid e 0.9 % Intravenous Solution USE DIRECTED Quantity: 0 Refills: 0 Ordered: 20-Mar-2021 DO Start : 20-Mar-2021 Active Start: 03-20-2021 Sodium Chlorid e 0.9 % Intravenous Solution USE DIRECTED Quantity: 0 Refills: 0 Ordered: 20-Mar-2021 DO Start : 20-Mar-2021 Active Start: 08-25-2020 End: 08-25-2020 0.9 % sodium chloride bolus Start: 04-01-2019 0.9 % sodium c hloride infusion Start: 07-21-2017 Standish Saline Johan al Nasal Gel Apply twice a day to nasal membranes Quantity: 1 Refills: 3 Stephanie BHATTI, Courtney Rowan Start : 21-Jul-2017 Active 14.1 GM Tube spironolactone 50 mg oral tablet (20 sources) Aldosterone Antagonist Start: 08-11-2023 End: 05-10-2024 take 1 tablet by mouth once daily Spironolactone 50 mg tablet Discontinued 0 .ROUTE .COMPLEX 90 February 04, 2024 8:25am May 10, 2024 10:54am TAKE 1 TABLET BY MOUTH EVERY DAY Start: 02-11-2023 End: 08-11-2023 take 1 tablet by mouth once daily spironolactone (Aldactone) 50 mg tablet Take 1 tablet (50 mg) by mouth once daily. 02/11/2023 Active Start: 06-03-2022 Spironolactone 50 MG Oral Tablet Quantity: 30 Refills: 0 Ordered: 03-Jun-2022 DO Start : 03-Jun-2022 Active Start: 12-08-2018 End: 06-30-2023 take 1 tablet by mouth once daily Spironolactone 25 mg tablet Discontinued 25 MG PO Daily July 29, 2021 12:00am June 30, 2023 3:37pm tiZANidine 4 mg oral tablet (20 sources) Central alpha-2 Adrenergic Agonist Start: 08-11-2017 take 2 tablets by mouth at bedtime tiZANidine HCl - 4 MG Oral Tablet TAKE 2 TABLET Bedtime Quantity: 60 Refills: 6 Jodie Matthews MD Start : 11-Aug-2017 Active take 1 tablet by trudi th every six hours as needed tiZANidine (Zanaflex) 4 mg tablet Take 1 tablet (4 mg) by mouth every 6 hours if needed for muscle spasms. Active take 8 mg by mouth once daily TI ZANIDINE HCL PO Take 8 mg by mouth nightly 0 Active Trelegy Ellipta 200-62.5-25 MCG/INH Inhalation Aerosol Powder Breath Activated (18 sources) Start: 09-13-2020 take 1 puff(s) by inhalation once daily Trelegy Ellipta 200-62.5-25 MCG/INH Inhalation Aerosol Powder Breath Activated INHALE 1 PUFFS Daily Quantity: 1 Refills: 3 Ordered: 16-Oct-2020 Courtney Brown MD Start : 13-Sep-2020 Active Start: 09-13-2020 take 1 puff(s) by in halation once daily Trelegy Ellipta 200-62.5-25 MCG/INH Inhalation Aerosol Powder Breath Activated INHALE 1 PUFFS Daily Quantity: 1 Refills: 0 Ordered: 13-Sep-2020 Courtney Brown MD Start : 13-Sep-2020 Active Start: 09-13-2020 take 1 puff(s) by in halation once daily Trelegy Ellipta 200-62.5-25 MCG/INH Inhalation Aerosol Powder Breath Activated INHALE 1 PUFFS Daily Quantity: 1 Refills: 0 Courtney Brown MD Start : 13-Sep-2020 Active 60 Each Pack Start: 05-10-2020 take 1 puff(s) by in halation once daily Trelegy Ellipta 200-62.5-25 MCG/INH Inhalation Aerosol Powder Breath Activated INHALE 1 PUFFS Daily Quantity: 1 Refills: 5 Courtney Brown MD Start : 10-May-2020 Active Vitamin B-12 SOLN (20 sources) Vitamin B-12 CAYLA N inject as directed Quantity: 0 Refills: 0 Ordered: 05-Feb-2021 DO Active Vitamin B12 TABS (3 sources) Vitamin B12 TABS TAKE 1 TABLET DAILY DIRECTED. Quantity: 0 Refills: 0 Ordered: 05-Feb-2021 DO Active ZOLMitriptan 5 mg/actuat nasal spray (18 sources) Serotonin-1b and Serotonin-1d Receptor Agonist Start: 07-03-2020 End: 06-22-2023 ZOLMitriptan (Zomig) 5 mg nasal solution Administer into affected nostril(s). 0 07/03/2020 06/22/2023 Discontinued (Side effects) Start: 07-03-2020 ZOLMitriptan 5 MG Nasal Solution USE 1 SPRAY AT ONSET OF MIGRAINE MAY REPEAT IN 2HRS IF NO RELIEF NO MORE THAN 2 SPRAYS PER 24HRS Quantity: 6 Refills: 6 Ordered: 03-Jul-2020 Jodie Matthews MD Start : 03-Jul-2020 Active Problems Active Problems Problem Classification Problem Date Documented Da te Episodic/Chronic Acute bronchitis (2 sources) Acute bronchitis; Translations: [Acute bronchitis, unspecified] Episodic Allergic reactions (2 sources) Allergy status to penicillin; Translations: [Allergy status to sulfonamides status] Onset: 04-26-2018 Episodic Anxiety disorders (20 sources) Anxiety; Translations: [Anxiety disorder] Onset: 10-08-2023 05-16-2022 Chronic Aspiration pneumonitis; food/vomitus (2 sources) Recurrent aspiration pneumonia; Translations: [Recurrent aspiration pneumonia (HCC)] Episodic Asthma (20 sources) Uncomplicated severe persistent asthma; Translations: [Exacerbation of severe persistent asthma] Onset: 07-25-2013 Resolved: 09-06-2023 01-13-2019 Chronic Bacterial infection; unspecified site (1 source) Resistance to multiple antibiotics; Translations: [RESISTANCE TO MULTIPLE ANTIBIOTICS] Onset: 04-26-2018 Episodic Cardiac dysrhythmias (20 sources) Cardiac arrhythmia; Translations: [Cardiac dysrhythmia, unspecified] Onset: 10-08-2023 10-08-2023 Chronic Chronic obstructive pulmonary disease and bronchiectasis (20 sources) Chronic obstructive pulmonary disease, unspecified; Translations: [Acute exacerbation of chronic obstructive airways disease] Onset: 06-11-2015 01-18-2019 Chronic Chronic obstructive pulmonary disease and bronchiectasis (20 sources) Bronchitis; Translations: [Bronchitis, not specified as acute or chronic] 10-26-2023 Episodic Chronic obstructive pulmonary disease and bronchiectasis (6 sources) Chronic obstructive pulmonary disease and bronchiectasis; Translations: [Other specified chronic obstructive pulmonary disease] Onset: 04-12-2023 Coronary atherosclerosis and other heart disease (1 source) Atherosclerotic heart disease of [place] coronary artery without angina pectoris; Translations: [Athscl heart disease of [place] coronary artery w/o ang pctrs] Onset: 05-01-2022 Chronic Deficiency and other anemia (20 sources) Iron deficiency anemia due to blood loss; Translations: [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c)] Onset: 08-13-2022 01-14-2022 Chronic Deficiency and other anemia (20 sources) 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c); Translations: [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c)] Onset: 09-13-2024 03-18-2022 Chronic Deficiency and other anemia (20 sources) Vitamin B12 deficiency anemia due to intrinsic factor deficiency; Translations: [Pernicious anemia] Onset: 10-11-2021 Episodic Deficiency and other anemia (2 sources) Iron deficiency anemia, unspecified; Translations: [Iron deficiency anemia, unspecified] Onset: 05-12-2022 Episodic Deficiency and other anemia (1 source) Iron deficiency anemia; Translations: [Iron deficiency anemia, unspecified] Episodic Delirium, dementia, and amnestic and other cognitive disorders (20 sources) Cognitive disorder; Translations: [Unspecified persistent mental disorders due to conditions classified elsewhere] Onset: 01-02-2023 01-02-2023 Chronic Diabetes mellitus without complication (18 sources) Secondary diabetes mellitus; Translations: [Secondary diabetes mellitus with other specified manifestations, not stated as uncontrolled, or unspecified] Onset: 07-26-2016 10-08-2023 Chronic Diseases of white blood cells (18 sources) Leukocytosis; Translations: [Elevated white blood cell count, unspecified] Onset: 10-08-2023 10-08-2023 Chronic Disorders of lipid metabolism (20 sources) Dyslipidemia; Translations: [Hyperlipidemia] Onset: 08-10-2019 10-31-2019 Chronic Esophageal disorders (20 sources) Gastro-esophageal reflux disease without esophagitis; Translations: [Gastroesophageal reflux disease] Onset: 04-26-2018 01-02-2023 Chronic Esophageal disorders (1 source) Esophageal disorders; Translations: [Gastro-esophageal reflux disease with esophagitis, without bleeding] Essential hypertension (20 sources) Essential (primary) hypertension; Translations: [Essential hypertension] Onset: 01-11-2015 Resolved: 12-05-2020 01-18-2019 Chronic Comment on above: Added by Problem Lis t Migration; 2012-11-20; Moved to [facility] Mar 26 2013 9:02PM; Fluid and electrolyte disorders (20 sources) Hypokalemia; Translations: [Disorder of fluid AND/OR electrolyte] Onset: 06-09-2014 07-29-2021 Episodic Genitourinary symptoms and ill-defined conditions (20 sources) Retention of urine; Translations: [Retention of urine, unspecified] Onset: 05-25-2017 12-10-2018 Episodic Headache; including migraine (20 sources) Refractory migraine without aura; Translations: [Migraine with aura] Onset: 07-25-2013 Resolved: 12-06-2020 10-28-2018 Chronic Headache; including migraine (4 sources) Headache; including migraine; Translations: [HEADACHE UNSPECIFIED] Onset: 11-29-2021 Hyperplasia of prostate (20 sources) Benign prostatic hyperplasia without lower urinary tract symptoms; Translations: [Benign prostatic hyperplasia with lower urinary tract symptoms] Onset: 04-26-2018 Chronic Immunity disorders (20 sources) Anti-pneumococcal polysaccharide antibody deficiency ; 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] Onset: 12-07-2021 Chronic Immunizations and screening for infectious disease (20 sources) Patient encounter status; Translations: [Other specified vaccination] 02-10-2024 Episodic Intracranial injury (20 sources) Personal history of traumatic brain injury; Translations: [History of concussion injury of brain] Onset: 07-25-2013 Episodic Late effects of cerebrovascular disease (20 sources) Hemiplegia and hemiparesis following cerebral infarction affecting left non-dominant side; Translations: [Hemiparesis as late effect of cerebrovascular accident] Onset: 04-26-2018 01-02-2023 Chronic Mood disorders (20 sources) Depressive disorder; Translations: [Depressive disorder, not elsewhere classified] Onset: 08-10-2019 Chronic Nonspecific chest pain (2 sources) Chest pain; Translations: [Chest pain, unspecified] Onset: 12-19-2015 Episodic Nutritional deficiencies (18 sources) Vitamin D deficiency; Translations: [Vitamin D deficiency, unspecified] Onset: 10-08-2023 04-08-2023 Chronic Open wounds of head; neck; and trunk (20 sources) Laceration - injury; Translations: [Laceration] 04-05-2022 Episodic Osteoarthritis (20 sources) Unspecified osteoarthritis, unspecified site; Translations: [Bilateral primary osteoarthritis of knee] Onset: 10-19-2014 Resolved: 12-06-2020 Chronic Other aftercare (20 sources) Surgical follow-up; Translations: [Encounter for removal of sutures] 04-16-2022 Episodic Other aftercare (2 sources) Other terminal clerk (current) drug therapy; Translations: [OTH MEDICAL SOCIAL WORKER CURRENT DRUG THERAPY] Onset: 03-31-2022 Episodic Other and ill-defined cerebrovascular disease (20 sources) Cerebrovascular disease; Translations: [Cerebrovascular disease, unspecified] Onset: 08-13-2019 08-13-2019 Chronic Other circulatory disease (20 sources) History of transient ischemic attack; Translations: [Personal history of transient ischemic attack (TIA), and cerebral infarction without residual deficits] Onset: 10-08-2023 11-12-2016 Episodic Other connective tissue disease (3 sources) Imaging of thorax abnormal; Translations: [Abnormal CXR] Episodic Other diseases of bladder and urethra (1 source) Neuromuscular dysfunction of bladder, unspecified; Translations: [NEUROMUSCULAR DYSFUNCTION OF BLADDER, UNSPECIFIED] Onset: 04-26-2018 Chronic Other diseases of bladder and urethra (20 sources) Neurogenic bladder; Translations: [Neuromuscular dysfunction of bladder, unspecified] Onset: 12-10-2018 12-10-2018 Chronic Other diseases of kidney and ureters (20 sources) Renal tubular acidosis; Translations: [Other disorders resulting from impaired renal tubular function] Onset: 10-08-2023 07-30-2021 Chronic Other diseases of kidney and ureters (6 sources) Other disorders resulting from impaired renal tubular function; Translations: [Other specified disorders resulting from impaired renal function] 07-02-2023 Chronic Other diseases of kidney and ureters (1 source) Urinary tract obstruction; Translations: [Other obstructive and reflux uropathy] Onset: 08-26-2023 Episodic Other ear and sense organ disorders (20 sources) Hearing loss; Translations: [Unspecified hearing loss] Onset: 10-08-2023 10-08-2023 Chronic Other ear and sense organ disorders (20 sources) Sensorineural hearing loss, bilateral; Translations: [Sensorineural hearing loss, bilateral] Onset: 01-02-2023 Resolved: 12-06-2020 01-02-2023 Chronic Other endocrine disorders (1 source) Testicular hypofunction; Translations: [Testicular hypofunction] Onset: 05-19-2022 Chronic Other endocrine disorders (20 sources) Male hypogonadism; Translations: [Testicular hypofunction] Onset: 10-08-2023 05-19-2022 Chronic Other endocrine disorders (17 sources) Decreased cortisol level; Translations: [Other adrenocortical insufficiency] Onset: 05-19-2022 10-08-2023 Chronic Other gastrointestinal disorders (1 source) Constipation, unspecified; Translations: [CONSTIPATION, UNSPECIFIED] Onset: 04-26-2018 Episodic Other gastrointestinal disorders (20 sources) Dysphagia; Translations: [Dysphagia, unspecified] Episodic Other gastrointestinal disorders (2 sources) Dysphagia, unspecified; Translations: [Dysphagia, unspecified] Onset: 05-12-2022 Episodic Other hematologic conditions (1 source) Protein level - finding; Translations: [Other specified abnormalities of plasma proteins] 07-29-2021 Episodic Other hematologic conditions (1 source) Other specified abnormalities of plasma proteins; Translations: [Other abnormal blood chemistry] Episodic Other hereditary and degenerative nervous system conditions (20 sources) Essential tremor; Translations: [Essential and other specified forms of tremor] Onset: 03-04-2018 01-02-2023 Chronic Other hereditary and degenerative nervous system conditions (3 sources) Intention tremor; Translations: [Other specified forms of tremor] Onset: 08-13-2019 08-13-2019 Chronic Other infections; including parasitic (20 sources) Sequelae of other specified infectious and parasitic diseases; Translations: [COVID-19 long hauler] Onset: 02-16-2023 02-16-2023 Chronic Comment on above: Dx 07-29-20; Other infections; including parasitic (20 sources) Late effects of other and unspecified infectious and parasitic diseases; Translations: [COVID-19 long hauler] Chronic Comment on above: Dx 07-29-20; Other infections; including parasitic (20 sources) Post-viral disorder; 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] 07-06-2023 Chronic Other injuries and conditions due to external causes (20 sources) Injury of head; Translations: [Head injury, unspecified] Episodic Other lower respiratory disease (20 sources) Interstitial lung disease; Translations: [Postinflammatory pulmonary fibrosis] Onset: 10-08-2023 02-11-2023 Chronic Other lower respiratory disease (9 sources) Interstitial pulmonary disease, unspecified; Translations: [Interstitial pulmonary disease, unspecified] Onset: 01-27-2023 Chronic Other lower respiratory disease (20 sources) Dyspnea; Translations: [Shortness of breath] Onset: 09-11-2016 07-29-2021 Episodic Other lower respiratory disease (1 source) Other nonspecific abnormal finding of lung field; Translations: [Other nonspecific abnormal finding of lung field] Onset: 05-01-2022 Episodic Other nervous system disorders (1 source) Metabolic encephalopathy; Translations: [METABOLIC ENCEPHALOPATHY] Onset: 04-26-2018 Chronic Other nervous system disorders (1 source) Polyneuropathy, unspecified; Translations: [POLYNEUROPATHY, UNSPECIFIED] Onset: 04-26-2018 Chronic Other nervous system disorders (20 sources) Neuropathy; Translations: [Polyneuropathy, unspecified] Onset: 10-28-2018 10-28-2018 Chronic Other nervous system disorders (20 sources) Polyneuropathy; Translations: [Unspecified hereditary and idiopathic peripheral neuropathy] Onset: 01-02-2023 01-02-2023 Chronic Other nervous system disorders (20 sources) Bilateral carpal tunnel syndrome; Translations: [Carpal tunnel syndrome, bilateral upper limbs] Onset: 04-14-2019 04-14-2019 Chronic Other nervous system disorders (16 sources) Chronic pain; Translations: [Other chronic pain] Chronic Other nervous system disorders (2 sources) Other chronic pain; Translations: [OTHER CHRONIC PAIN] Onset: 05-23-2022 Chronic Other nervous system disorders (5 sources) Chronic pain syndrome; Translations: [CHRONIC PAIN SYNDROME] Onset: 11-27-2021 Chronic Other nervous system disorders (20 sources) Impaired cognition; Translations: [Other signs and symptoms involving cognition] Episodic Other nervous system disorders (20 sources) 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; Translations: [Tremor due to disorder of central nervous system] Onset: 10-28-2018 10-28-2018 Other nervous system disorders (8 sources) Bilateral carpal tunnel syndrome; Translations: [Bilateral carpal tunnel syndrome] Onset: 04-14-2019 04-14-2019 Other non-traumatic joint disorders (9 sources) Knee pain; Translations: [Knee pain] Episodic Other non-traumatic joint disorders (1 source) Pain in right hip Episodic Other non-traumatic joint disorders (5 sources) Pain in right wrist; Translations: [PAIN IN RIGHT WRIST] Onset: 06-30-2022 Episodic Other non-traumatic joint disorders (16 sources) Joint pain; Translations: [Pain in unspecified joint] Onset: 03-21-2015 09-15-2023 Episodic Other non-traumatic joint disorders (7 sources) Pain in unspecified joint; Translations: [Pain in joint, site unspecified] 09-15-2023 Episodic Other non-traumatic joint disorders (12 sources) Ankle pain; Translations: [Pain in left ankle and joints of left foot] 11-23-2023 Episodic Other nutritional; endocrine; and metabolic disorders (18 sources) Hypomagnesemia; Translations: [Hypomagnesemia] Onset: 05-25-2018 10-08-2023 Chronic Other nutritional; endocrine; and metabolic disorders (18 sources) Simple obesity ; Translations: [Other obesity due to excess calories] Onset: 07-18-2016 10-08-2023 Chronic Other nutritional; endocrine; and metabolic disorders (2 sources) Body mass index 30+ - obesity; Translations: [Body mass index 31.0-31.9, adult] Onset: 07-18-2016 Chronic Other screening for suspected conditions (not mental disorders or infectious disease) (20 sources) CT of chest abnormal; Translations: [Nonspecific (abnormal) findings on radiological and other examination of other intrathoracic organs] Onset: 04-15-2022 Chronic Other screening for suspected conditions (not mental disorders or infectious disease) (20 sources) Decreased cortisol level; Translations: [Laboratory test result abnormal] Onset: 05-19-2022 Episodic Other upper respiratory disease (3 sources) Allergic rhinitis due to pollen; Translations: [Allergic rhinitis due to pollen] Onset: 10-31-2019 10-31-2019 Chronic Other upper respiratory disease (20 sources) Allergic rhinitis; Translations: [Allergic rhinitis, cause unspecified] Onset: 07-01-2022 10-08-2023 Chronic Other upper respiratory disease (1 source) Allergic rhinitis, unspecified; Translations: [ALLERGIC RHINITIS UNSPECIFIED] Onset: 07-01-2022 Chronic Other upper respiratory disease (1 source) Deviated nasal septum; Translations: [Deviated nasal septum] Onset: 07-17-2022 Episodic Other upper respiratory infections (20 sources) Chronic sinusitis; Translations: [Unspecified sinusitis (chronic)] Onset: 06-25-2022 Chronic Phlebitis; thrombophlebitis and thromboembolism (1 source) Deep venous thrombosis of peroneal vein; Translations: [Acute venous embolism and thrombosis of deep vessels of distal lower extremity] Onset: 11-07-2016 Chronic Residual codes; unclassified (20 sources) Obstructive sleep apnea syndrome; Translations: [Obstructive sleep apnea (adult)(pediatric)] Onset: 01-02-2023 01-02-2023 Chronic Comment on above: Added by Problem Lis t Migration; 2012-11-20; Moved to Suppressed Mar 26 2013 9:02PM; Residual codes; unclassified (20 sources) Sleep apnea; Translations: [Unspecified sleep apnea] Onset: 06-03-2021 05-19-2022 Chronic Residual codes; unclassified (1 source) Obstructive sleep apnea (adult) (pediatric); Translations: [ANN (obstructive sleep apnea)] Onset: 01-08-2022 Chronic Residual codes; unclassified (2 sources) Altered mental status, unspecified; Translations: [ALTERED MENTAL STATUS, UNSPECIFIED] Onset: 04-26-2018 Episodic Residual codes; unclassified (2 sources) Family history of cancer; Translations: [Family history of malignant neoplasm of prostate] Onset: 05-19-2022 Episodic Residual codes; unclassified (20 sources) Family history of prostate cancer 05-19-2022 Episodic Residual codes; unclassified (20 sources) Reduced libido; Translations: [Decreased libido] Onset: 11-11-2022 Episodic Retinal detachments; defects; vascular occlusion; and retinopathy (20 sources) Drusen (degenerative) of macula, right eye; Translations: [Macular drusen ] Onset: 02-15-2014 10-08-2023 Chronic Septicemia (except in labor) (1 source) Sepsis due to Escherichia coli [E. coli]; Translations: [SEPSIS DUE TO ESCHERICHIA COLI [E. 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; Translations: [Thyrotoxicosis of other specified origin without mention of thyrotoxic crisis or storm] Onset: 07-18-2016 10-08-2023 Chronic Unclassified (3 sources) Unknown / UNK(Unknown) Onset: 05-11-2017 Unclassified (4 sources) Post COVID-19 condition, unspecified; Translations: [Post COVID-19 condition, unspecified] Onset: 05-01-2022 Unclassified (4 sources) COUGH, UNSPECIFIED; Translations: [COUGH, UNSPECIFIED] Onset: 03-13-2022 Unclassified (3 sources) LOW BACK PAIN, UNSPECIFIED; Translations: [LOW BACK PAIN, UNSPECIFIED] Onset: 05-23-2022 Unclassified (20 sources) Measurement finding 11-11-2022 Unclassified (1 source) History of disease caused by Severe acute respiratory syndrome coronavirus 2 (situation); Translations: [Personal history of COVID-19] Unclassified (1 source) Personal history of COVID-19; Translations: [Personal history of COVID-19] Onset: 06-02-2022 Unclassified (1 source) Cough, unspecified; Translations: [Cough, unspecified] Onset: 02-12-2022 Unclassified (1 source) Post covid-19 condition, unspecified; Translations: [Post covid-19 condition, unspecified] Onset: 02-16-2023 Urinary tract infections (20 sources) Urinary tract infection, site not specified; Translations: [Recurrent urinary tract infection] Onset: 02-01-2018 Episodic Viral infection (1 source) Disease caused by 2019-nCoV; Translations: [COVID-19] Past or Other Problems Problem Classification Problem Date Documented Da te Episodic/Chronic Acute and unspecified renal failure (20 sources) Acute kidney failure, unspecified; Translations: [Injury of kidney] Onset: 8 07-29-2021 Episodic Blindness and vision defects (20 sources) Monocular diplopia; Translations: [Subjective visual disturbance] Onset: 4 Resolved: Episodic Cardiac dysrhythmias (20 sources) Tachycardia; Translations: [Tachycardia, unspecified] Onset: 8 10-08-2023 Episodic Coma; stupor; and brain damage (20 sources) Daytime somnolence; Translations: [Somnolence] Onset: 4 10-08-2023 Episodic Conditions associated with dizziness or vertigo (20 sources) Vertigo; Translations: [Dizziness and giddiness] Onset: 6 05-19-2022 Episodic Crushing injury or internal injury (17 sources) Injury of kidney; Translations: [Unspecified injury of unspecified kidney, initial encounter] Onset: 8 10-08-2023 Episodic Deficiency and other anemia (4 sources) Anemia, unspecified; Translations: [ANEMIA, UNSPECIFIED] Onset: 8 Episodic Deficiency and other anemia (20 sources) Anemia; Translations: [Anemia, unspecified] Onset: 3 01-02-2023 Episodic Deficiency and other anemia (20 sources) Pernicious anemia; Translations: [Vitamin B12 deficiency anemia due to intrinsic factor deficiency] Onset: 2 07-02-2023 Episodic Diabetes mellitus without complication (18 sources) Hyperglycemia; Translations: [Hyperglycemia, unspecified] Onset: 7 10-08-2023 Episodic Diseases of mouth; excluding dental (20 sources) Xerostomia; Translations: [Disturbances of salivary secretion] Onset: 4 10-08-2023 Episodic E Codes: Adverse effects of medical drugs (2 sources) Adverse effect of glucocorticoids and synthetic analogues, subsequent encounter; Translations: [Adverse effect of glucocorticoids and synthetic analogues, initial encounter] Onset: 7 Episodic E Codes: Fall (20 sources) Fall; Translations: [Unspecified fall] Onset: 2 10-08-2023 Episodic Fever of unknown origin (20 sources) Fever; Translations: [Fever, unspecified] Onset: 4 07-28-2023 Episodic Headache; including migraine (17 sources) Headache; Translations: [Headache] Onset: 6 Episodic Influenza (18 sources) Upper respiratory tract infection due to Influenza; Translations: [Influenza due to unidentified influenza virus with other respiratory manifestations] Onset: 6 Resolved: 5 10-08-2023 Episodic Lymphadenitis (20 sources) Inguinal lymphadenopathy; Translations: [Localized enlarged lymph nodes] Onset: 8 12-13-2018 Episodic Malaise and fatigue (20 sources) Fatigue; Translations: [Other malaise and fatigue] Onset: 6 04-08-2023 Episodic Mood disorders (20 sources) Major depressive disorder, single episode, unspecified; Translations: [Mood disorders] Onset: 3 Resolved: 5 10-27-2022 Mycoses (20 sources) Candidiasis of mouth; Translations: [Candidal stomatitis] Onset: 4 Resolved: 4 10-08-2023 Episodic Nausea and vomiting (20 sources) Nausea; Translations: [Nausea and vomiting] Onset: 4 10-08-2023 Episodic Other bone disease and musculoskeletal deformities (20 sources) Costal chondritis; Translations: [Tietze's disease] Onset: 4 10-08-2023 Episodic Other circulatory disease (1 source) Other specified symptoms and signs involving the circulatory and respiratory systems; Translations: [OTH SPEC SX SIGNS INVLV CIRC RS] Onset: 2 Episodic Other circulatory disease (18 sources) Elevated blood-pressure reading without diagnosis of hypertension; Translations: [Elevated blood-pressure reading, without diagnosis of hypertension] Onset: 4 10-08-2023 Episodic Other connective tissue disease (7 sources) Muscle fatigue; Translations: [Muscle fatigue] Episodic Other connective tissue disease (20 sources) Bursitis of hip; Translations: [Other bursitis of hip, unspecified hip] Onset: 4 10-08-2023 Episodic Other connective tissue disease (20 sources) Muscle weakness; Translations: [Muscle weakness (generalized)] Onset: 4 10-08-2023 Episodic Other connective tissue disease (20 sources) Decreased muscle tone; Translations: [Other symptoms involving nervous and musculoskeletal systems] Onset: 4 Resolved: 2 10-08-2023 Episodic Other connective tissue disease (20 sources) Musculoskeletal pain; Translations: [Myalgia and myositis, unspecified] Onset: 3 01-02-2023 Episodic Other connective tissue disease (20 sources) Weakness of foot; Translations: [Other symptoms and signs involving the musculoskeletal system] Onset: 4 10-08-2023 Episodic Other connective tissue disease (1 source) Neuralgia; Translations: [Neuralgia and neuritis, unspecified] Onset: 7 Episodic Other connective tissue disease (1 source) Pain in left lower limb; Translations: [Pain in left leg] Onset: 7 Episodic Other connective tissue disease (18 sources) Recurrent falls ; Translations: [Repeated falls] Onset: 4 10-08-2023 Episodic Other connective tissue disease (1 source) Myalgia, other site; Translations: [Myalgia, other site] Onset: 3 Episodic Other connective tissue disease (8 sources) Pain in left lower leg; Translations: [Pain in limb] Onset: 4 11-24-2023 Episodic Other connective tissue disease (12 sources) Decreased muscle tone; Translations: [Severe muscle deconditioning] Other ear and sense organ disorders (20 sources) Tinnitus, bilateral; Translations: [Bilateral subjective tinnitus of ears] Resolved: 1 Episodic Other ear and sense organ disorders (18 sources) Subjective tinnitus; Translations: [Tinnitus, unspecified ear] Onset: 4 10-08-2023 Episodic Other endocrine disorders (20 sources) Adrenal cortical hypofunction; Translations: [Glucocorticoid deficiency] Resolved: 1 Chronic Other eye disorders (20 sources) Dry eyes; Translations: [Tear film insufficiency, unspecified] Onset: 4 Resolved: 0 Episodic Other gastrointestinal disorders (20 sources) Oropharyngeal dysphagia; Translations: [Dysphagia, oropharyngeal phase] Onset: 0 06-06-2019 Episodic Other gastrointestinal disorders (20 sources) History of gastroesophageal reflux disease; Translations: [Personal history of other diseases of digestive system] Resolved: 1 Episodic Other hematologic conditions (20 sources) History of anemia; Translations: [Personal history of diseases of blood and blood-forming organs] Resolved: 1 Episodic Other infections; including parasitic (20 sources) H/O: infectious disease; Translations: [Personal history of other infectious and parasitic diseases] Resolved: 0 Episodic Other infections; including parasitic (20 sources) Personal history of other infectious and parasitic diseases; Translations: [Personal history of COVID-19] Onset: 4 10-08-2023 Episodic Other injuries and conditions due to external causes (1 source) History of falling; Translations: [HISTORY OF FALLING] Onset: 3 Episodic Other injuries and conditions due to external causes (1 source) Other specified injuries of head, initial encounter; Translations: [OTH SPEC INJURIES HEAD INITIAL ENC] Onset: 2 Episodic Other injuries and conditions due to external causes (1 source) Food in pharynx causing other injury, initial encounter; Translations: [FOOD PHARYNX CAUS OTH INJ INIT ENC] Onset: 2 Episodic Other injuries and conditions due to external causes (1 source) Partial thickness burn; Translations: [Blisters with epidermal loss due to burn (second degree), unspecified site] Onset: 8 Episodic Other injuries and conditions due to external causes (20 sources) Closed injury of head; Translations: [Unspecified injury of head, initial encounter] Onset: 4 08-19-2022 Episodic Other injuries and conditions due to external causes (1 source) Unspecified injury of head, initial encounter; Translations: [Unspecified injury of head, initial encounter] Onset: 4 Episodic Other liver diseases (20 sources) Raised cardiac enzyme or marker; Translations: [Other nonspecific abnormal serum enzyme levels] Onset: 3 07-29-2021 Episodic Other lower respiratory disease (20 sources) Productive cough ; Translations: [Cough] Resolved: 0 Episodic Other lower respiratory disease (20 sources) H/O: pneumonia; Translations: [Personal history of pneumonia (recurrent)] Resolved: 1 Episodic Other lower respiratory disease (20 sources) Cough; Translations: [Cough] Onset: 5 10-08-2023 Episodic Other lower respiratory disease (20 sources) Chest pain on breathing; Translations: [Painful respiration] Onset: 6 10-08-2023 Episodic Other lower respiratory disease (20 sources) Dyspnea on exertion; Translations: [Shortness of breath] Onset: 3 01-02-2023 Episodic Other lower respiratory disease (7 sources) Shortness of breath; Translations: [Shortness of breath] Onset: 2 Episodic Other nervous system disorders (20 sources) Carpal tunnel syndrome; Translations: [Carpal tunnel syndrome] Resolved: 1 Chronic Other nervous system disorders (20 sources) Tremor; Translations: [Unspecified abnormal involuntary movements] Onset: 0 09-15-2019 Episodic Other nervous system disorders (20 sources) Asterixis; Translations: [Lack of coordination] Onset: 4 10-08-2023 Episodic Other nervous system disorders (20 sources) Paresthesia; Translations: [Disturbance of skin sensation] Onset: 4 10-08-2023 Episodic Other nervous system disorders (5 sources) 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; Translations: [Disorder of central nervous system, unspecified] Onset: 9 10-28-2018 Episodic Other nervous system disorders (20 sources) History of clinical finding in subject; Translations: [Personal history of other disorders of nervous system and sense organs] Resolved: 1 Episodic Other nervous system disorders (20 sources) History of hearing loss; Translations: [Personal history of other disorders of nervous system and sense organs] Resolved: 1 Episodic Other nervous system disorders (1 source) Altered sensation of skin; Translations: [Disturbance of skin sensation] Onset: 7 Episodic Other nervous system disorders (1 source) Other symptoms and signs involving cognitive functions and awareness; Translations: [Oth symptoms and signs w cognitive functions and awareness] Onset: 3 Episodic Other non-traumatic joint disorders (7 sources) Pain in right knee; Translations: [PAIN IN RIGHT KNEE] Onset: 2 Episodic Other non-traumatic joint disorders (3 sources) Pain in left knee; Translations: [PAIN IN LEFT KNEE] Onset: 2 Episodic Other non-traumatic joint disorders (2 sources) Pain in left hip; Translations: [PAIN IN LEFT HIP] Onset: 3 Episodic Other non-traumatic joint disorders (1 source) Shoulder joint pain; Translations: [Pain in left shoulder] Onset: 8 Episodic Other non-traumatic joint disorders (1 source) Arthralgia of the ankle and/or foot; Translations: [Pain in joint, ankle and foot] Onset: 8 Episodic Other non-traumatic joint disorders (1 source) Arthralgia of the pelvic region and thigh; Translations: [Pain in joint, pelvic region and thigh] Onset: 7 Episodic Other non-traumatic joint disorders (8 sources) Pain in left ankle and joints of left foot; Translations: [Pain in joint, ankle and foot] Onset: 4 11-24-2023 Episodic Other nutritional; endocrine; and metabolic disorders (20 sources) Personal history of other endocrine, nutritional and metabolic disease; Translations: [History of nutritional deficiency] Resolved: 8 Episodic Other nutritional; endocrine; and metabolic disorders (20 sources) H/O: raised blood lipids; Translations: [Personal history of other endocrine, metabolic, and immunity disorders] Onset: 8 Resolved: 1 Episodic Other nutritional; endocrine; and metabolic disorders (20 sources) H/O: metabolic disorder; Translations: [Personal history of other endocrine, metabolic, and immunity disorders] Resolved: 1 Episodic Other nutritional; endocrine; and metabolic disorders (19 sources) Body mass index 25-29 - overweight; Translations: [Body mass index (BMI) 29.0-29.9, adult] Onset: 4 10-08-2023 Episodic Other skin disorders (20 sources) Disorder of skin; Translations: [Other symptoms involving skin and integumentary tissues] Resolved: 1 Episodic Other upper respiratory disease (20 sources) Bleeding from nose; Translations: [Epistaxis] Onset: 4 Resolved: 4 10-08-2023 Episodic Other upper respiratory infections (19 sources) Acute maxillary sinusitis; Translations: [Acute maxillary sinusitis, unspecified] Onset: 4 10-08-2023 Episodic Phlebitis; thrombophlebitis and thromboembolism (20 sources) Deep venous thrombosis of lower extremity; Translations: [Acute venous embolism and thrombosis of unspecified deep vessels of lower extremity] Onset: 7 Resolved: 1 10-08-2023 Episodic Pneumonia (except that caused by tuberculosis or sexually transmitted disease) (20 sources) Pneumonia due to Staphylococcus aureus; Translations: [Infective pneumonia] Onset: 9 Resolved: 3 04-01-2019 Episodic Residual codes; unclassified (7 sources) Edema of extremity; Translations: [Edema extremities] Episodic Residual codes; unclassified (20 sources) H/O: vertigo; Translations: [Personal history of other disorders of nervous system and sense organs] Resolved: 1 Episodic Residual codes; unclassified (20 sources) Insomnia; Translations: [Insomnia, unspecified] Onset: 3 01-02-2023 Episodic Residual codes; unclassified (1 source) Family history of malignant neoplasm of prostate; Translations: [FAMILY HX MALIG NEOPLASM PROSTATE] Onset: 3 Episodic Residual codes; unclassified (20 sources) Edema; Translations: [Edema, unspecified] Onset: 0 01-02-2023 Episodic Residual codes; unclassified (18 sources) Amnesia; Translations: [Other amnesia] Onset: 4 03-24-2023 Episodic Septicemia (except in labor) (20 sources) Sepsis; Translations: [Unspecified septicemia] Onset: 3 Resolved: 3 01-02-2023 Episodic Spondylosis; intervertebral disc disorders; other back problems (20 sources) Thoracic spondylosis without myelopathy; Translations: [Thoracic spondylosis without myelopathy] Onset: 6 Resolved: 2 Chronic Spondylosis; intervertebral disc disorders; other back problems (20 sources) Cervico-occipital neuralgia; Translations: [Neck pain] Onset: 7 03-14-2019 Episodic Superficial injury; contusion (20 sources) Contusion of left upper arm; Translations: [Contusion of left upper arm, initial encounter] Onset: 4 08-19-2022 Episodic Syncope (20 sources) Syncope; Translations: [Syncope and collapse] Onset: 4 04-05-2022 Episodic Unclassified (1 source) CRITICAL ILLNESS MYOPATHY;SEVERE MUSCLE DECOND Onset: 8 Unclassified (3 sources) History of clinical finding in subject; Translations: [History of tremor] Unclassified (20 sources) Patient encounter status 05-19-2022 Unclassified (2 sources) Post COVID-19 condition, unspecified; Translations: [Post COVID-19 condition, unspecified] Onset: 2 Unclassified (1 source) Low back pain, unspecified M54.50 Unclassified (1 source) LOW BACK PAIN, UNSPECIFIED; Translations: [LOW BACK PAIN, UNSPECIFIED] Onset: 3 Unclassified (1 source) COUGH, UNSPECIFIED; Translations: [COUGH, UNSPECIFIED] Onset: 2 Unclassified (20 sources) Onset: 3 Resolved: 5 02-16-2023 Viral infection (20 sources) Disease caused by 2019-nCoV; Translations: [Other specified viral infection] Onset: 4 10-08-2023 Episodic NEGATED: Highlighted row has been ruled out!Congestive heart failure; nonhypertensive (16 sources) Chronic diastolic heart failure; Translations: [Chronic diastolic heart failure] Chronic Comment on above: 07/05/2014 echo EF 5 5-60% impaired relaxation mild AI RVSP 31 No MR trace PA; NEGATED: Highlighted row has been ruled out!Coronary atherosclerosis and other heart disease (16 sources) Exercise-induced angina; Translations: [Other and unspecified angina pectoris] Chronic NEGATED: Highlighted row has not occurred!Residual codes; unclassified (20 sources) Disease Episodic Results Test Name Value Interpretation Reference Range Facility Ambulatory Visit Summaryon 0 09-14-2024 Ambulatory Visit Summary Ambulatory Visit Summary VELIA BAGLEY :1960 Visit Date:09/14/2024 Ambulatory Visit Instructions Your Diagnosis Rising PSA level Family history of prostate cancer Your Care Team Attending Physician - TATA TEIXEIRA, JESSICA English Primary Care Physician - RACHEL RAYO MD This Is Your Medications List [facility] [place] (no lifting >30lbs, no bending to the ground, no using ramp unless necessary) Oxygen (Home Oxygen) acetaZOLAMIDE (acetaZOLAMIDE 500 mg oral capsule, extended release) amitriptyline (amitriptyline 100 mg oral tablet) budesonide/formoterol/gl ycopyrrolate (Breztri Aerosphere inhalation aerosol) celecoxib (celecoxib 200 mg Cap) clonidine cyanocobalamin (Vitamin B12) cyclobenzaprine (cyclobenzaprine 10 mg Tab) duloxetine (duloxetine 20 mg oral delayed release capsule) fluticasone nasal (fluticasone Nasal 0.05 mg/inh Coy) galcanezumab (Emgality Prefilled Pen 120 mg/mL subcutaneous solution) immune globulin intravenous and subcutaneous (Gamunex-C 10% injectable solution 5 gram) ketorolac (ketorolac 10 mg Tab) levalbuterol levalbuterol (Xopenex 1.25 mg/0.5 mL Concentate) losartan (losartan 100 mg Tab) magnesium citrate meclizine (meclizine 25 mg Tab) methenamine (methenamine hippurate 1 g oral tablet) metoprolol omeprazole (omeprazole 40 mg Cap-DR) onabotulinumtoxinA (Botox 200 units injection) ondansetron (ondansetron 4 mg Tab) potassium chloride (Klor-Con M20 oral tablet, extended release) pregabalin (Lyrica 100 mg Cap) spironolactone (spironolactone 50 mg Tab) sumatriptan (SUMAtriptan 6 mg/0.5 mL SubQ Cayla) tezepelumab (Tezspire) topiramate (topiramate 50 mg Tab) venlafaxine (venlafaxine 150 mg Cap-ER) verapamil (verapamil 120 mg Cap-ER) Procedures Performed Epidural injection of lumbar spine using fluoroscopic guidance (06/09/2024), Epidural injection of lumbar spine using fluoroscopic guidance (12/29/2023), Epidural injection of lumbar spine using fluoroscopic guidance (07/08/2023), Epidural injection of lumbar spine using fluoroscopic guidance (02/14/2023), Injection of nerve root of lumbar spine using fluoroscopic guidance (12/24/2022), Injection of sacroiliac joint using fluoroscopic guidance (10/29/2022), Hip replacement, History of knee surgery, History of surgery to release entrapped nerve, lamenectomy L4-L5, Procedure on femur. What to do next Scheduled Follow-Up Appointments Thursday 2:00 PM EDT With: JESSICA PAYTON PA-C Where: [facility] [address] [address]24 11:30 AM EDT With: Issa Gonzales DO Where: [facility] Medications What How Much When Why Instructions Unchanged acetaZOLAMIDE (acetaZOLAMIDE 500 mg oral capsule, extended release) 1 Capsules By Mouth At bedtime Unchanged amitriptyline (amitriptyline 100 mg oral tablet) 1 Tablets By Mouth Once a day (at bedtime) Unchanged budesonide/ formoterol/ glycopyrrolate (Breztri Aerosphere inhalation aerosol) 2 Puffs Inhalation 2 times a day Unchanged celecoxib (celecoxib 200 mg Cap) 1 Capsules By Mouth 4 times a day Unchanged clonidine By Mouth Every day Unchanged cyanocobalamin (Vitamin B12) 1,000 Microgram By Mouth Every day Unchanged cyclobenzaprine (cyclobenzaprine 10 mg Tab) 1 Tablets By Mouth At bedtime as needed for for spasm Unchanged duloxetine (duloxetine 20 mg oral delayed release capsule) 1 Capsules By Mouth 2 times a day Unchanged fluticasone nasal (fluticasone Nasal 0.05 mg/ inh Coy) Unchanged galcanezumab (Emgality Prefilled Pen 120 mg/ mL subcutaneous solution) 120 Milligram Subcutaneous Once a month Unchanged immune globulin intravenous and subcutaneous (Gamunex-C 10% injectable solution 5 gram) Unchanged ketorolac (ketorolac 10 mg Tab) 1 Tablets By Mouth 4 times a day as needed for as needed for pain Unchanged levalbuterol 0.63 Milligram Nebulized inhalation (aerosol) 3 times a day as needed for Shortness of breath or wheezing Unchanged levalbuterol (Xopenex 1.25 mg/ 0.5 mL Concentate) Nebulized inhalation (aerosol) 3 times a day Unchanged losartan (losartan 100 mg Tab) 1 Tablets By Mouth Every day Unchanged magnesium citrate By Mouth Every day Unchanged meclizine (meclizine 25 mg Tab) As needed for Dizziness Unchanged methenamine (methenamine hippurate 1 g oral tablet) 1 Tablets By Mouth 2 times a day Unchanged metoprolol By Mouth Every day Unchanged Misc Prescription (no lifting >30lbs, no bending to the ground, no using ramp unless necessary) 0 Unchanged omeprazole (omeprazole 40 mg Cap-DR) 2 times a day Unchanged onabotulinumtoxinA (Botox 200 units injection) 200 Units Intramuscular Every 3 months Unchanged ondansetron (ondansetron 4 mg Tab) 1 Tablets By Mouth Every 8 hours as needed for Nausea/Vomiting Unchanged Oxygen (Home Oxygen) 2 Liter/minute At bedtime Unchanged potassium c (more content not included)... Normal [facility] CHEMISTRYOrdered By: SYSTEM SYSTEM on 09-14-2024 Prostate specific Ag [Mass/Vol] 2.5 ng/mL Normal 0.1 - 3.5 ng/mL [facility] Comment on above: Interpretive Data: T he concentration of PSA determined by different manufacturers can vary due to differences in assay methods and reagent specificity. Values obtained from different assay methods cannot be used interchangeably. The methodology used for this result was chemiluminescence using Dayo Sourav's Access Hybritech PSA reagent. POTASSIUMon 09-14-2024 Potassium [Moles/Vol] 3.8 mmol/L Normal 3.5-5.3 [facility] [email or web address] Comment on above: Performed By: #### 7 [id number] #### [facility] [address], [address] [place] [address] Music Leader: Oh Mckenna MD PSA Totalon 09-14-2024 Prostate specific Ag [Mass/Vol] 2.5 ng/mL Normal 0.1-3.5 [facility] Comment on above: Result Comment: The concentration of PSA determined by different manufacturers can vary due to differences in assay methods and reagent specificity. Values obtained from different assay methods cannot be used interchangeably. The methodology used for this result was chemiluminescence using Dayo Sourav's Access Hybritech PSA reagent. Performed By: #### 1 [id number] #### [facility] [address] [place] [address] Potassiumon 09-14-2024 Potassium [Moles/Vol] 3.8 mmol/L 3.5 - 5.3 mmol/L [facility] Potassium [Moles/Vol]on 09-01 [facility] CBC W Auto Differential pane l (Bld)on 09-13-2024 Basophils (Bld) [#/Vol] 0.1 10*3/uL 0.0 - 0.2 10*3/uL [facility] Basophils/100 WBC Manual cnt (Syn fld) 1.4 % . [facility] Eosinophils (Bld) [#/Vol] 0.1 10*3/uL 0.0 - 0.45 10*3/uL [facility] Eosinophils/100 WBC Manual cnt (Syn fld) 1.5 % . [facility] Erythrocyte distribution width (RBC) [Ratio] 15 % High 12.0 - 14.8 % [facility] Hematocrit (Bld) [Volume fraction] 41.2 % 38.8 - 50.0 % [facility] Hemoglobin (Bld) [Mass/Vol] 13.7 g/dL 13.0 - 17.0 g/dL [facility] Interpretation and review of laboratory results Abnormal [facility] Lymphocytes (Bld) [#/Vol] 2 10*3/uL 1.00 - 4.8 10*3/uL [facility]/100 WBC Manual cnt (Syn fld) 38.1 % . [facility] MCH (RBC) [Entitic mass] 29 pg 27.5 - 35.2 pg [facility] MCHC (RBC) [Mass/Vol] 33.3 g/dL 32.5 - 35.6 g/dL [facility] MCV (RBC) [Entitic vol] 86.9 fL 83.5 - 101 fL [facility] Monocytes (Bld) [#/Vol] 0.5 10*3/uL 0.0 - 0.8 10*3/uL [facility] Monocytes+Macrophages /100 WBC Manual cnt (Syn fld) 8.8 % . [facility] Neutrophils (Bld) [#/Vol] 2.6 10*3/uL 1.8 - 7.7 10*3/uL [facility] Neutrophils/100 WBC Manual cnt (Syn fld) 50.2 % . [facility] NRBC 0.1 /100{WBC} 0 - 0.5 /100{WBC} [facility] Platelet mean volume (Bld) [Entitic vol] 7.7 fL 6.6 - 10.1 fL [facility] Platelets (Bld) [#/Vol] 187 10*3/uL 150 - 450 10*3/uL [facility] RBC LM.HPF (Urine sed) [#/Area] 4.75 10*6/uL 3.90 - 5.60 10*6/uL [facility] WBC (Bld) [#/Vol] 5.3 10*3/uL 4.1 - 10.5 10*3/uL [facility] WBC LM.HPF (Urine sed) [#/Area] 5.3 10*3/uL 4.1 - 10.5 10*3/uL [facility] Complete Blood Count Auto Di ffon 09-13-2024 Basophils (Bld) [#/Vol] 0.1 10*3/uL Normal 0.0-0.2 [facility] Comment on above: Result Comment: PERF ORMED BY: [facility] [address] [address] PATHOLOGIST CYANIDE POT HARDENER BAMBI CHONG M.D. Performed By: #### C BC, FE and TIBC, BRIAN, CMP ####[address] Basophils/100 WBC (Bld) 1.4 % Normal . [facility] Comment on above: Performed By: #### C BC, FE and TIBC, BRIAN, CMP ####[address] Eosinophils (Bld) [#/Vol] 0.1 10*3/uL Normal 0.0-0.45 [facility] Comment on above: Performed By: #### C BC, FE and TIBC, BRIAN, CMP ####[address] Eosinophils/100 WBC (Bld) 1.5 % Normal . [facility] Comment on above: Performed By: #### C BC, FE and TIBC, BRIAN, CMP ####[address] Erythrocyte distribution width (RBC) [Ratio] 15.0 % High 12.0-14.8 [facility] Comment on above: Performed By: #### C BC, FE and TIBC, BRIAN, CMP ####[address] Hematocrit (Bld) [Volume fraction] 41.2 % Normal 38.8-50.0 [facility] Comment on above: Performed By: #### C BC, FE and TIBC, BRIAN, CMP ####[address] Hemoglobin (Bld) [Mass/Vol] 13.7 g/dL Normal 13.0-17.0 [facility] Comment on above: Performed By: #### C BC, FE and TIBC, BRIAN, CMP ####[address] Lymphocytes (Bld) [#/Vol] 2.0 10*3/uL Normal 1.00-4.8 [facility] Comment on above: Performed By: #### C BC, FE and TIBC, BRIAN, CMP ####[address] Lymphocytes/100 WBC (Bld) 38.1 % Normal . [facility] Comment on above: Performed By: #### C BC, FE and TIBC, BRIAN, CMP ####[address] MCH (RBC) [Entitic mass] 29.0 pg Normal 27.5-35.2 [facility] Comment on above: Performed By: #### C BC, FE and TIBC, BRIAN, CMP ####[address] MCV (RBC) [Entitic vol] 86.9 fL Normal 83.5-101 [facility] Comment on above: Performed By: #### C BC, FE and TIBC, BRIAN, CMP ####[address] Mean Corpuscular HGB Conc 33.3 g/dL Normal 32.5-35.6 [facility] Comment on above: Performed By: #### C BC, FE and TIBC, BRIAN, CMP ####[address] Monocytes (Bld) [#/Vol] 0.5 10*3/uL Normal 0.0-0.8 [facility] Comment on above: Performed By: #### C BC, FE and TIBC, BRIAN, CMP ####[address] Monocytes/100 WBC (Bld) 8.8 % Normal . [facility] Comment on above: Performed By: #### C BC, FE and TIBC, BRIAN, CMP ####[address] Neutrophils (Bld) [#/Vol] 2.6 10*3/uL Normal 1.8-7.7 [facility] Comment on above: Performed By: #### C BC, FE and TIBC, BRIAN, CMP ####[address] Neutrophils/100 WBC (Bld) 50.2 % Normal . [facility] Comment on above: Performed By: #### C BC, FE and TIBC, BRIAN, CMP ####[address] NRBC% 0.1 /100{WBC} Normal 0-0.5 [facility] Comment on above: Performed By: #### C BC, FE and TIBC, BRIAN, CMP ####[address] Platelet mean volume (Bld) [Entitic vol] 7.7 fL Normal 6.6-10.1 [facility] Comment on above: Performed By: #### C BC, FE and TIBC, BRIAN, CMP ####[address] Platelets (Bld) [#/Vol] 187 10*3/uL Normal 150-450 [facility] Comment on above: Performed By: #### C BC, FE and TIBC, BRIAN, CMP ####[address] RBC (Bld) [#/Vol] 4.75 10*6/uL Normal 3.90-5.60 [facility] Comment on above: Performed By: #### C BC, FE and TIBC, BRIAN, CMP ####[address] WBC (Bld) [#/Vol] 5.3 10*3/uL Normal 4.1-10.5 [facility] Comment on above: Performed By: #### C BC, FE and TIBC, BRIAN, CMP ####[address] Comprehensive Metabolic Pane nanette 09-13-2024 Albumin [Mass/Vol] 3.7 g/dL Normal 3.5-5.7 [facility] Comment on above: Performed By: #### C BC, FE and TIBC, BRIAN, CMP ####[address] Albumin/Globulin [Mass ratio] 1.3 {ratio} Normal [facility] Comment on above: Performed By: #### C BC, FE and TIBC, BRIAN, CMP ####[address] ALP [Catalytic activity/Vol] 94 U/L Normal 34-104 [facility] Comment on above: Performed By: #### C BC, FE and TIBC, BRIAN, CMP ####[address] ALT [Catalytic activity/Vol] 9 U/L Normal 7-52 [facility] Comment on above: Performed By: #### C BC, FE and TIBC, BRIAN, CMP ####[address] Anion gap [Moles/Vol] 8.3 mmol/L Normal 6.0-15.0 [facility] Comment on above: Performed By: #### C BC, FE and TIBC, BRIAN, CMP ####[address] AST [Catalytic activity/Vol] 13 U/L Normal 13-39 [facility] Comment on above: Performed By: #### C BC, FE and TIBC, BRIAN, CMP ####[address] Bilirubin [Mass/Vol] 0.3 mg/dL Normal 0.3-1.0 [facility] Comment on above: Performed By: #### C BC, FE and TIBC, BRIAN, CMP ####[address] Calcium [Mass/Vol] 8.4 mg/dL Low 8.6-10.3 [facility] Comment on above: Performed By: #### C BC, FE and TIBC, BRIAN, CMP ####[address] Chloride [Moles/Vol] 110 mmol/L High 98-107 [facility] Comment on above: Performed By: #### C BC, FE and TIBC, BRIAN, CMP ####[address] CO2 [Moles/Vol] 23.6 mmol/L Normal 21.0-31.0 [facility] Comment on above: Performed By: #### C BC, FE and TIBC, BRIAN, CMP ####[address] Creatinine [Mass/Vol] 1.06 mg/dL Normal 0.70-1.30 [facility] Comment on above: Performed By: #### C BC, FE and TIBC, BRIAN, CMP ####[address] Creatinine Clr Calc Pharmacy 78.31 Normal [facility] Comment on above: Performed By: #### C BC, FE and TIBC, BRIAN, CMP ####[address] GFR/1.73 sq M.predicted MDRD (S/P/Bld) [Vol rate/Area] mL/min/{1.73_m2} Normal [facility] Comment on above: Performed By: #### C BC, FE and TIBC, BRIAN, CMP ####[address] Globulin (S) [Mass/Vol] 2.8 g/dL Normal [facility] Comment on above: Performed By: #### C BC, FE and TIBC, BRIAN, CMP ####[address] Glucose [Mass/Vol] 100 mg/dL Normal 70-100 [facility] Comment on above: Result Comment: [place] Glucose Reference Range is dependent on time and content of last meal. Glucose of more than 200 mg/dL in a nonstressed, ambulatory subject supports the diagnosis of Diabetes Mellitus. ADA recommended reference range Performed By: #### C BC, FE and TIBC, BRIAN, CMP ####[address] [place] [address] [facility] Potassium [Moles/Vol] 3.9 mmol/L Normal 3.5-5.1 [facility] Comment on above: Performed By: #### C BC, FE and TIBC, BRIAN, CMP ####[place] [id number] [facility] Protein [Mass/Vol] 6.5 g/dL Normal 6.4-8.9 [facility] Comment on above: Performed By: #### C BC, FE and TIBC, BRIAN, CMP ####[place] [id number] [facility] Sodium [Moles/Vol] 138 mmol/L Normal 136-145 [facility] Comment on above: Performed By: #### C BC, FE and TIBC, BRIAN, CMP ####[place] [id number] [facility] Urea nitrogen [Mass/Vol] 20 mg/dL Normal 7-25 [facility] Comment on above: Performed By: #### C BC, FE and TIBC, BRIAN, CMP ####[place] [id number] [facility] Ferritinon 09-13-2024 Ferritin [Mass/Vol] 16.5 ng/mL Low 23.9-336.2 [facility] Comment on above: Result Comment: PERF ORMED BY: [facility] [address] [place] [id number] PATHOLOGIST CYANIDE POT HARDENER BAMBI CHONG M.D. Performed By: #### C BC, FE and TIBC, BRIAN, CMP ####[address] [address] [facility] Iron and TIBC Profileon 09-01 % Iron Saturation 21.5 % Normal 20-50 [facility] Comment on above: Performed By: #### C BC, FE and TIBC, BRIAN, CMP ####[place] [id number] [facility] Iron [Mass/Vol] 66 ug/dL Normal 50-212 [facility] Comment on above: Performed By: #### C BC, FE and TIBC, BRIAN, CMP ####[facility] [id number] [place] [id number] [facility] Total Iron Binding Capacity 307 ug/dL Normal 255-450 [facility] Comment on above: Performed By: #### C BC, FE and TIBC, BRIAN, CMP ####[facility] [id number] [place] [id number] [facility] Transferrin [Mass/Vol] 219 mg/dL Normal 203-362 [facility] Comment on above: Performed By: #### C BC, FE and TIBC, BRIAN, CMP ####[facility] [id number] [place] [id number] [facility] Head/Face/Jaw Botulinum Inje ctionon 08-17-2024 Jodie Matthews MD 08/17/2024 3:58 PM Head/Face/Jaw [...] Please call if you have difficulty swallowing. [facility] Work Phone: [facility] Work Phone: Estimated glomerular filtrat ion rate (GFR) non- Americanon 07-01-2024 GFR/1.73 sq M.predicted among non-blacks MDRD (S/P/Bld) [Vol rate/Area] Estimated glomerular filtration rate (GFR) non- Low >=60 mL/min/1.73m 2 [facility] Globulin Calc (S) [Mass/Vol] on 07-01-2024 Globulin (S) [Mass/Vol] Serum globulin measurement by calculation (mass/volume) [facility] IgG [Mass/volume] in Serum o r Plasmaon 07-01-2024 IgG [Mass/Vol] IgG [Mass/volume] in Serum or Plasma [phone] [facility] Comment on above: Performed at: [facility] [place] [id number] Director: Wilfredo Lee PhD, Phone: [phone] Laboratory - Chemistry and C hemistry - challengeon 07-01-2024 Albumin [Mass/Vol] 3.4 g/dL 3.4-5.0 [facility] ALP [Catalytic activity/Vol] 101 U/L 46-116 [facility] ALT [Catalytic activity/Vol] 7 U/L Low 16-63 [facility] AST [Catalytic activity/Vol] U/L Low 15-37 [facility] Bilirubin [Mass/Vol] 0.2 mg/dL 0.2-1.0 [facility] Calcium [Mass/Vol] 8.1 mg/dL Low 8.5-10.1 [facility] Chloride [Moles/Vol] 107 mmol/L 98-107 [facility] CO2 [Moles/Vol] 19.4 mmol/L Low 21.0-32.0 [facility] Creatinine [Mass/Vol] 1.31 mg/dL High 0.70-1.[address] [facility] GFR/1.73 sq M.predicted MDRD (S/P/Bld) [Vol rate/Area] mL/min/{1.73_m2} >=60 mL/min/1.73m 2 [facility] Glucose [Mass/Vol] 94 mg/dL 74-106 [facility] Potassium [Moles/Vol] 3.4 mmol/L Low 3.5-5.[address] [facility] Protein [Mass/Vol] 7.1 g/dL 6.4-8.2 [facility] Sodium [Moles/Vol] 140 mmol/L 136-145 [facility] Urea nitrogen [Mass/Vol] 31.0 mg/dL High 7.0-18.0 [facility] Urea nitrogen/Creatinine [Mass ratio] 23.7 mg/mg [facility] Serum or plasma albumin/glob ulin mass ratioon 07-01-2024 Albumin/Globulin [Mass ratio] Serum or plasma albumin/globulin mass ratio [facility] Serum or plasma anion gap de terminationon 07-01-2024 Anion gap [Moles/Vol] Serum or plasma an ion gap determination [facility] Main OR Intraoperative Recor don 06-09-2024 Main OR Intraoperative Record Main OR Intraoperative Record IntraOp Document Type FTPM Summary Primary Physician: Issa Gonzales DO Finalized Date/Time: 06/09/24 11:27:18 Pt. Name: VELIA BAGLEY/Sex: 1960 Male Med Rec #: [id number] Physician: Issa Gonzales DO Financial #: [id number] Pt. Type: P Room/Bed: / Admit/Disch: 06/09/24 09:53:26 - Institution: Case Times FTPM Entry 1 Patient Times In Room 06/09/24 11:21:00 Out Room 06/09/24 11:27:00 Procedure Times Start 06/09/24 11:24:00 Stop 06/09/24 11:26:00 Anesthesia Times Last Modified By: Danyelle Rome RN 06/09/24 11:27:13 Case Attendance FTPM Entry 1 Entry 2 Entry 3 Case Attendee Issa Gonzales DO, RN, Danyelle Saeed RN, Salma Rowan Role Performed Surgeon - Primary Housing Liaison - Primary Scrub - Primary Time In 06/09/24 11:21:00 06/09/24 11:21:00 06/09/24 11:21:00 Time Out 06/09/24 11:27:00 06/09/24 11:27:00 06/09/24 11:27:00 Procedure LUMBAR EPIDURAL STEROID LUMBAR EPIDURAL STEROID LUMBAR EPIDURAL STEROID INJECTION(.) INJECTION(.) INJECTION(.) Comments Last Modified By: Danyelle Rome RN, RN, Emily C Myers RN, Emily C 06/09/24 11:27:14 06/09/24 11:27:14 06/09/24 11:27:14 Entry 4 Case Attendee Rosalee Radford Role Performed Topstitcher Zigzag Time In 06/09/24 11:21:00 Time Out 06/09/24 11:27:00 Procedure LUMBAR EPIDURAL STEROID INJECTION(.) Comments Last Modified By: Danyelle Rome RN 06/09/24 11:27:14 Perioperative Protocols FTPM Pre-Care Text: Implements protective measures prior to operative or invasive procedure, confirms identity before the operative or invasive procedure, verifies operative procedure, surgical site, and laterality Entry 1 Procedure(s) LUMBAR EPIDURAL STEROID Patient Identity Birthday, ID Band INJECTION(.) Verified (select at Check, Patient least 2): Participation Consents / H and P H&P, Surgery/Procedure Operative Site Present Verified Consent Marking Verified Surgical Site Yes Laterality Verified Yes Verified Procedure Verified Yes Correct Patient Yes Position Verified Availability Equipment, Medication, Prep Dry Yes Verified (If X-ray Applicable) PreOp Antibiotic No Time Out Danyelle Rome RN, Given Participants Christophe GONZALEZ, Salma Rowan, Issa Gonzales DO, Daniel, Alissa M Time Out Complete 06/09/24 11:22:00 Outcomes Met? Yes Last Modified By: Danyelle Rome RN 06/09/24 11:22:06 Post-Care Text: The patient is free from signs and symptoms of injury caused by extraneous objects Allergy Information FTPM Pre-Care Text: Verifies allergies Entry 1 Allergies Reviewed? Yes Allergies Reviewed Self/Patient With Outcomes Met? Yes Last Modified By: Danyelle Rome RN 06/09/24 10:16:11 Post-Care Text: The patient received appropriate medication(s) safely administered during the perioperative period Surgical Procedures FTPM Entry 1 Procedure Description Procedure LUMBAR EPIDURAL STEROID Modifiers . INJECTION Surgeon Description L5/S1 DUYEN W/FLUORO Primary Procedure Yes Primary Surgeon Issa Gonzales DO Start 06/09/24 11:24:00 Stop 06/09/24 11:26:00 Anesthesia Type None Surgical Service Pain Management Wound Class 1 - Clean Last Modified By: Danyelle Rome RN 06/09/24 11:27:15 General Case Data FTPM Pre-Care Text: Classifies surgical wound, implements aseptic technique, initiates traffic control Entry 1 Case Information OR Pain Proc Room Case Level Level 2 Wound Class 1 - Clean Specialty Pain Management Preop Diagnosis M48.062 Postop Same As Preop Yes Postop Diagnosis M48.062 Outcomes Met? Yes Last Modified By: Danyelle Rome RN 06/09/24 11:22:17 Post-Care Text: The patient is free from signs and symptoms of infection Skin Assessment (Pre Procedure) FTPM Pre-Care Text: Implements protective measures to prevent skin/ tissue injury due to thermal or mechanical sources Evaluates for signs and symptoms of physical injury to skin and tissue Entry 1 Skin Integrity Intact, [place], Warm, & Skin Abnormality No Dry Outcomes Met? Yes Last Modified By: Danyelle Rome RN 06/09/24 10:16:24 Post-Care Text: The patient is free from signs and symptoms of injury caused by extraneous objects Patient Positioning FTPM Pre-Care Text: Identifies physical alterations that require additional precautions for procedure-specific positioning, verifies presence of prosthetics or corrective devices, positions the patient, evaluates the patient for signs and symptoms of injury as a result of positioning Entry 1 Procedure LUMBAR EPIDURAL STEROID Body Position Prone INJECTION(.) Feet Uncrossed? Yes Left Arm Position Resting at Side Right Arm Position Resting at Side Left Leg Position Extended Right Leg Position Extended Positioning Device Pillow Under Head Large, Safety Strap, Pillow Large Under Knees Press Points Checked Yes By Danyelle Rome RN Outcomes Met? Yes Last Modified By: Wild GONZALEZ, (more content not included)... [facility] Main OR Preoperative Recordo n 06-09-2024 Main OR Preoperative Record Main OR Preoperative Record Holding Area Document Type FTPM Summary Primary Physician: Issa Gonzales DO Finalized Date/Time: 06/09/24 10:06:39 Pt. Name: VELIA BAGLEY/Sex: 1960 Male Med Rec #: [id number] Physician: Issa Gonzales DO Financial #: [id number] Pt. Type: P Room/Bed: / Admit/Disch: 06/09/24 09:53:26 - Institution: Case Times Holding FTPM Pre-Care Text: Verifies consent for planned procedure, identifies individual values and wishes concerning care, includes family members in perioperative teaching Secures patient's records' belongings, and valuables, maintains patient's dignity and privacy, and maintains patient confidentiality Entry 1 In Holding 06/09/24 10:04:00 Outcomes Met? Yes Last Modified By: Steffanie Freeman RN 06/09/24 10:05:13 Post-Care Text: The patient participates in decisions affecting his or her perioperative plan of care The patient's right to privacy is maintained Surgery Checklist FTPM Entry 1 Patient Birthday, ID Band Procedure History and Physical, Identification: Check, Patient Verification: Surgical Consent, With Participation Patient NPO after Midnight: Yes Date/Time: 06/09/24 10:05:00 Results Reviewed N/A Personal Items: Glasses Comments: Personal Items Pt. wearing glasses. Complaints of Pain: Yes Comment: Pain Comment: 11/10 lower back pain Operative Site Yes Marking: Marked By: Dr. Gonzales Location: L5-S1 Availability Equipment, X-Ray Verified: Does Patient Smoke No Patient states Yes Comment - Adult son-Adams postop adult Supervision supervision available Case Cancelled in No Holding Area see comments below for reason Last Modified By: Steffanie Freeman RN 06/09/24 10:06:35 Finalized By: Steffanie Freeman RN Document Signatures Signed By: Steffanie Freeman RN 06/09/24 10:06 [facility] Operative Reporton Operative Report Operative Report Diagnosis: M48.062, lumbar stenosis with neurogenic medication Procedure: L5/S1 lumbar interlaminar epidural steroid injection under fluoroscopic guidance Anesthesia: Local Complications: none After informed consent was obtained, the patient was brought to the procedure suite and placed in the prone position. Pulse oximetry and blood pressure were monitored throughout. Low back areas prepped and draped in the usual sterile fashion. Using fluoroscopic guidance, the skin and subcutaneous tissue overlying the needle trajectory were anesthetized with 2% lidocaine. A 17-gauge Touhy needle was inserted and directed by fluoroscopy. Entry into the epidural space was confirmed using the [id number] technique and 2 cc of air. Injection of contrast revealed appropriate spread without vascular uptake. 4 mL of normal saline plus 40 mg of methylprednisolone was then injected. The needle was removed and the patient was then transferred to the recovery room in stable condition. The patient tolerated the procedure well. There were no apparent complications. Follow-up: The patient will update us on the response to this procedure, and agrees to continue currently prescribed/recommended therapies. [facility] Comment on above: Result Comment: Elec tronically Signed By: Issa Gonzales DO\Date and Time Signed: 06/09/24 11:27 EST Alanine aminotransferase [En zymatic activity/volume] in Serum or PlasmaOrdered By: Melissa Wilson on 05-27-2024 ALT [Catalytic activity/Vol] Alanine aminotransferase [Enzymatic activity/volume] in Serum or Plasma 7-52 [facility] Albumin [Mass/volume] in Ser um or Plasma by Bromocresol green (BCG) dye binding methoOrdered By: Melissa Wilson on 05-27-2024 Albumin BCG dye [Mass/Vol] Albumin [Mass/volume] in Serum or Plasma by Bromocresol green (BCG) dye binding metho 3.5-5.7 [facility] Alkaline phosphatase [Enzyma tic activity/volume] in Serum or PlasmaOrdered By: Melissa Wilson on 05-27-2024 ALP [Catalytic activity/Vol] Alkaline phosphatase [Enzymatic activity/volume] in Serum or Plasma 34-104 [facility] Aspartate aminotransferase [ Enzymatic activity/volume] in Serum or PlasmaOrdered By: Melissa Wilson on 05-27-2024 AST [Catalytic activity/Vol] Aspartate aminotransferase [Enzymatic activity/volume] in Serum or Plasma 13-39 [facility] Basophils Auto (Bld) [#/Vol] Ordered By: Melissa Wilson on 05-27-2024 Basophils (Bld) [#/Vol] Automated basophil count 0.0-0.2 [facility] Basophils/100 WBC Auto (Bld) Ordered By: Melissa Wilson on 05-27-2024 Basophils/100 WBC (d) Automated basophil % . [facility] Bilirubin.total [Mass/volume ] in Serum or PlasmaOrdered By: Melissa Wilson on 05-27-2024 Bilirubin [Mass/Vol] Bilirubin.total [Mass/volume] in Serum or Plasma 0.3-1.0 [facility] CBC W Auto Differential pane l (Bld)on 05-27-2024 Basophils (Bld) [#/Vol] 0.1 10*3/uL 0.0 - 0.2 10*3/uL [facility] Basophils/100 WBC Manual cnt (Syn fld) 1.2 % . [facility] Eosinophils (Bld) [#/Vol] 0.1 10*3/uL 0.0 - 0.45 10*3/uL [facility] Eosinophils/100 WBC Manual cnt (Syn fld) 1.5 % . [facility] Erythrocyte distribution width (RBC) [Ratio] 14.9 % High 12.0 - 14.8 % [facility] Hematocrit (Bld) [Volume fraction] 44.5 % 38.8 - 50.0 % [facility] Hemoglobin (Bld) [Mass/Vol] 14.7 g/dL 13.0 - 17.0 g/dL [facility] Interpretation and review of laboratory results Abnormal [facility] Lymphocytes (Bld) [#/Vol] 1.7 10*3/uL 1.00 - 4.8 10*3/uL [facility] Lymphocytes/100 WBC Manual cnt (Syn fld) 31.8 % . [facility] MCH (RBC) [Entitic mass] 28.6 pg 27.5 - 35.2 pg [facility] MCHC (RBC) [Mass/Vol] 33.1 g/dL 32.5 - 35.6 g/dL [facility] MCV (RBC) [Entitic vol] 86.6 fL 83.5 - 101 fL [facility] Monocytes (Bld) [#/Vol] 0.4 10*3/uL 0.0 - 0.8 10*3/uL [facility] Monocytes+Macrophages /100 WBC Manual cnt (Syn fld) 7.9 % . [facility] Neutrophils (Bld) [#/Vol] 3.1 10*3/uL 1.8 - 7.7 10*3/uL [facility] Neutrophils/100 WBC Manual cnt (Syn fld) 57.6 % . [facility] NRBC 0.1 /100{WBC} 0 - 0.5 /100{WBC} [facility] Platelet mean volume (Bld) [Entitic vol] 7.9 fL 6.6 - 10.1 fL [facility] Platelets (Bld) [#/Vol] 229 10*3/uL 150 - 450 10*3/uL [facility] RBC LM.HPF (Urine sed) [#/Area] 5.14 10*6/uL 3.90 - 5.60 10*6/uL [facility] WBC (Bld) [#/Vol] 5.3 10*3/uL 4.1 - 10.5 10*3/uL [facility] WBC LM.HPF (Urine sed) [#/Area] 5.3 10*3/uL 4.1 - 10.5 10*3/uL [facility] Calcium [Mass/volume] in Ser um or PlasmaOrdered By: [facility] Steve on 05-27-2024 Calcium [Mass/Vol] Calcium [Mass/volume ] in Serum or Plasma 8.6-10.3 [facility] Carbon dioxide, total [Moles /volume] in Serum or PlasmaOrdered By: Melissa Steve on 05-27-2024 CO2 [Moles/Vol] Carbon dioxide, tota l [Moles/volume] in Serum or Plasma 21.0-31.0 [facility] Chloride [Moles/volume] in S isael or PlasmaOrdered By: Melissa Steve on 05-27-2024 Chloride [Moles/Vol] Chloride [Moles/vol ume] in Serum or Plasma High 98-107 [facility] Complete Blood Count Auto Di ffon 05-27-2024 Basophils (Bld) [#/Vol] 0.1 10*3/uL Normal 0.0-0.2 [facility] Comment on above: Result Comment: PERF ORMED BY: [address] [place] [address] PATHOLOGIST CYANIDE POT HARDENER BAMBI CHONG M.D. Performed By: #### F ER, FE and TIBC, CMP, CBC #### [facility] [address] [place] [address] [place] Basophils/100 WBC (Bld) 1.2 % Normal . [facility] Comment on above: Performed By: #### F ER, FE and TIBC, CMP, CBC #### [facility] [address] [place] [address] [place] Eosinophils (Bld) [#/Vol] 0.1 10*3/uL Normal 0.0-0.45 [facility] Comment on above: Performed By: #### F ER, FE and TIBC, CMP, CBC #### [address] Eosinophils/100 WBC (Bld) 1.5 % Normal . [facility] Comment on above: Performed By: #### F ER, FE and TIBC, CMP, CBC #### [address] Erythrocyte distribution width (RBC) [Ratio] 14.9 % High 12.0-14.8 [facility] Comment on above: Performed By: #### F ER, FE and TIBC, CMP, CBC #### [address] Hematocrit (Bld) [Volume fraction] 44.5 % Normal 38.8-50.0 [facility] Comment on above: Performed By: #### F ER, FE and TIBC, CMP, CBC #### [address] Hemoglobin (Bld) [Mass/Vol] 14.7 g/dL Normal 13.0-17.0 [facility] Comment on above: Performed By: #### F ER, FE and TIBC, CMP, CBC #### [address] Lymphocytes (Bld) [#/Vol] 1.7 10*3/uL Normal 1.00-4.8 [facility] Comment on above: Performed By: #### F ER, FE and TIBC, CMP, CBC #### [address] Lymphocytes/100 WBC (Bld) 31.8 % Normal . [facility] Comment on above: Performed By: #### F ER, FE and TIBC, CMP, CBC #### [address] MCH (RBC) [Entitic mass] 28.6 pg Normal 27.5-35.2 [facility] Comment on above: Performed By: #### F ER, FE and TIBC, CMP, CBC #### [address] MCV (RBC) [Entitic vol] 86.6 fL Normal 83.5-101 [facility] Comment on above: Performed By: #### F ER, FE and TIBC, CMP, CBC #### [address] Mean Corpuscular HGB Conc 33.1 g/dL Normal 32.5-35.6 [facility] Comment on above: Performed By: #### F ER, FE and TIBC, CMP, CBC #### [address] Monocytes (Bld) [#/Vol] 0.4 10*3/uL Normal 0.0-0.8 [facility] Comment on above: Performed By: #### F ER, FE and TIBC, CMP, CBC #### [address] Monocytes/100 WBC (Bld) 7.9 % Normal . [facility] Comment on above: Performed By: #### F ER, FE and TIBC, CMP, CBC #### [address] Neutrophils (Bld) [#/Vol] 3.1 10*3/uL Normal 1.8-7.7 [facility] Comment on above: Performed By: #### F ER, FE and TIBC, CMP, CBC #### [address] Neutrophils/100 WBC (Bld) 57.6 % Normal . [facility] Comment on above: Performed By: #### F ER, FE and TIBC, CMP, CBC #### [address] NRBC% 0.1 /100{WBC} Normal 0-0.5 [facility] Comment on above: Performed By: #### F ER, FE and TIBC, CMP, CBC #### [address] Platelet mean volume (Bld) [Entitic vol] 7.9 fL Normal 6.6-10.1 [facility] Comment on above: Performed By: #### F ER, FE and TIBC, CMP, CBC #### [address] Platelets (Bld) [#/Vol] 229 10*3/uL Normal 150-450 [facility] Comment on above: Performed By: #### F ER, FE and TIBC, CMP, CBC #### [address] RBC (Bld) [#/Vol] 5.14 10*6/uL Normal 3.90-5.60 [facility] Comment on above: Performed By: #### F ER, FE and TIBC, CMP, CBC #### [address] WBC (Bld) [#/Vol] 5.3 10*3/uL Normal 4.1-10.5 [facility] Comment on above: Performed By: #### F ER, FE and TIBC, CMP, CBC #### [address] Comprehensive Metabolic Pane nanette 05-27-2024 Albumin [Mass/Vol] 4.0 g/dL Normal 3.5-5.7 [facility] Comment on above: Performed By: #### F ER, FE and TIBC, CMP, CBC #### [address] Albumin/Globulin [Mass ratio] 1.5 {ratio} Normal [facility] Comment on above: Performed By: #### F ER, FE and TIBC, CMP, CBC #### [address] ALP [Catalytic activity/Vol] 101 U/L Normal 34-104 [facility] Comment on above: Performed By: #### F ER, FE and TIBC, CMP, CBC #### [facility] [address] ALT [Catalytic activity/Vol] 7 U/L Normal 7-52 [facility] Comment on above: Performed By: #### F ER, FE and TIBC, CMP, CBC #### [facility] [address] Anion gap [Moles/Vol] 9.9 mmol/L Normal 6.0-15.0 [facility] Comment on above: Performed By: #### F ER, FE and TIBC, CMP, CBC #### [address] AST [Catalytic activity/Vol] 13 U/L Normal 13-39 [facility] Comment on above: Performed By: #### F ER, FE and TIBC, CMP, CBC #### [address] Bilirubin [Mass/Vol] 0.5 mg/dL Normal 0.3-1.0 [facility] Comment on above: Performed By: #### F ER, FE and TIBC, CMP, CBC #### [facility] [address] [place] [address] [place] Calcium [Mass/Vol] 8.6 mg/dL Normal 8.6-10.3 [facility] Comment on above: Performed By: #### F ER, FE and TIBC, CMP, CBC #### [place] [address] [place] Chloride [Moles/Vol] 109 mmol/L High 98-107 [facility] Comment on above: Performed By: #### F ER, FE and TIBC, CMP, CBC #### [facility] [address] [place] [address] [place] CO2 [Moles/Vol] 22.5 mmol/L Normal 21.0-31.0 [facility] Comment on above: Performed By: #### F ER, FE and TIBC, CMP, CBC #### [facility] [address] [place] [address] [place] Creatinine [Mass/Vol] 1.30 mg/dL Normal 0.70-1.30 [facility] Comment on above: Performed By: #### F ER, FE and TIBC, CMP, CBC #### [address] Creatinine Clr Calc Pharmacy 58.16 Normal [facility] Comment on above: Performed By: #### F ER, FE and TIBC, CMP, CBC #### [address] GFR/1.73 sq M.predicted MDRD (S/P/Bld) [Vol rate/Area] mL/min/{1.73_m2} Normal [facility] Comment on above: Performed By: #### F ER, FE and TIBC, CMP, CBC #### [address] Globulin (S) [Mass/Vol] 2.6 g/dL Normal [facility] Comment on above: Performed By: #### F ER, FE and TIBC, CMP, CBC #### [address] Glucose [Mass/Vol] 94 mg/dL Normal 70-100 [facility] Comment on above: Result Comment: [place] Glucose Reference Range is dependent on time and content of last meal. Glucose of more than 200 mg/dL in a nonstressed, ambulatory subject supports the diagnosis of Diabetes Mellitus. ADA recommended reference range Performed By: #### F ER, FE and TIBC, CMP, CBC #### [address] Potassium [Moles/Vol] 3.4 mmol/L Low 3.5-5.1 [facility] Comment on above: Performed By: #### F ER, FE and TIBC, CMP, CBC #### [address] Protein [Mass/Vol] 6.6 g/dL Normal 6.4-8.9 [facility] Comment on above: Performed By: #### F ER, FE and TIBC, CMP, CBC #### [place] [id number] [place] Sodium [Moles/Vol] 138 mmol/L Normal 136-145 [facility] Comment on above: Performed By: #### F ER, FE and TIBC, CMP, CBC #### [facility] [address] Urea nitrogen [Mass/Vol] 27 mg/dL High 7-25 [facility] Comment on above: Performed By: #### F ER, FE and TIBC, CMP, CBC #### [facility] [address] [place] [address] [place] Creatinine [Mass/volume] in Serum or PlasmaOrdered By: Melissa Wilson on 05-27-2024 Creatinine [Mass/Vol] Creatinine [Mass/v olume] in Serum or Plasma 0.70-1.30 [facility] Eosinophils Auto (Bld) [#/Vo l]Ordered By: Melissa Wilson on 05-27-2024 Eosinophils (Bld) [#/Vol] Automated eosinophil count 0.0-0.45 [facility] Eosinophils/100 WBC Auto (Bl d)Ordered By: Melsisa Wilson on 05-27-2024 Eosinophils/100 WBC (Bld) Automated eosinophil % . [facility] Erythrocyte distribution wid th Auto (RBC) [Ratio]Ordered By: Melissa Wilson on 05-27-2024 Erythrocyte distribution width (RBC) [Ratio] Erythrocyte distribution width [Ratio] by Automated count High 12.0-14.8 [facility] Ferritinon 05-27-2024 Ferritin [Mass/Vol] 22.6 ng/mL Low 23.9-336.2 [facility] Comment on above: Result Comment: PERF ORMED BY: [facility] [address] [place] [address] PATHOLOGIST CYANIDE POT HARDENER BAMBI CHONG M.D. Performed By: #### F ER, FE and TIBC, CMP, CBC ####[facility] [id number] [place] [address] [place] Ferritin [Mass/volume] in Se rum or PlasmaOrdered By: Melissa Wilson on 05-27-2024 Ferritin [Mass/Vol] Ferritin [Mass/volum e] in Serum or Plasma Low 23.9-336.2 [facility] Globulin Calc (S) [Mass/Vol] Ordered By: Melissa Wilson on 05-27-2024 Globulin (S) [Mass/Vol] Serum globulin measurement by calculation (mass/volume) [facility] Glucose [Mass/volume] in Ser um or PlasmaOrdered By: Melissa Wilson on 05-27-2024 Glucose [Mass/Vol] Glucose [Mass/volume ] in Serum or Plasma 70-100 [facility] Comment on above: ADA recommended refe rence rangeRandom Glucose Reference Range is dependent on time and content of last meal. Glucose of more than 200 mg/dL in a nonstressed, ambulatory subject supports the diagnosis of Diabetes Mellitus. Hematocrit Auto (Bld) [Volum e fraction]Ordered By: Melissa Wilson on 05-27-2024 Hematocrit (Bld) [Volume fraction] Hematocrit [Volume Fraction] of Blood by Automated count 38.8-50.0 [facility] Hemoglobin [Mass/volume] in BloodOrdered By: Melissa Wilson on 05-27-2024 Hemoglobin (Bld) [Mass/Vol] Hemoglobin [Mass/volume] in Blood 13.0-17.0 [facility] Iron [Mass/volume] in Serum or PlasmaOrdered By: Melissa Wilson on 05-27-2024 Iron [Mass/Vol] Iron [Mass/volume] i n Serum or Plasma 50-212 [facility] Iron and TIBC Profileon 05-05 % Iron Saturation 60.7 % High 20-50 [facility] Comment on above: Performed By: #### F ER, FE and TIBC, CMP, CBC ####[facility] [id number] [place] [address] [facility] Iron [Mass/Vol] 204 ug/dL Normal 50-212 [facility] Comment on above: Performed By: #### F ER, FE and TIBC, CMP, CBC ####[facility] [id number] [place] [address] [facility] Total Iron Binding Capacity 336 ug/dL Normal 255-450 [facility] Comment on above: Performed By: #### F ER, FE and TIBC, CMP, CBC ####[facility] [id number] [place] [address] [facility] Transferrin [Mass/Vol] 240 mg/dL Normal 203-362 [facility] Comment on above: Performed By: #### F ER, FE and TIBC, CMP, CBC ####[facility] [id number] [place] [id number] [facility] Leukocytes [#/volume] correc adalberto for nucleated erythrocytes in Blood by Automated counOrdered By: Melissa Wilson on 05-27-2024 WBC corrected for nucl RBC Auto (Bld) [#/Vol] Leukocytes [#/volume] corrected for nucleated erythrocytes in Blood by Automated coun 4.1-10.5 [facility] Lymphocytes Auto (Bld) [#/Vo l]Ordered By: Melissa Wilson on 05-27-2024 Lymphocytes (Bld) [#/Vol] Lymphocytes [#/volume] in Blood by Automated count 1.00-4.8 [facility] Lymphocytes/100 WBC Auto (Bl d)Ordered By: Melissa Wilson on 05-27-2024 Lymphocytes/100 WBC (Bld) Lymphocytes/100 leukocytes in Blood by Automated count . [facility] MCH Auto (RBC) [Entitic mass ]Ordered By: Melissa Wilson on 05-27-2024 MCH (RBC) [Entitic mass] MCH [Entitic mass] by Automated count 27.5-35.2 [facility] MCHC Auto (RBC) [Mass/Vol]Or dered By: Melissa Wilson on 05-27-2024 MCHC (RBC) [Mass/Vol] MCHC [Mass/volume] by Automated count 32.5-35.6 [facility] MCV Auto (RBC) [Entitic vol] Ordered By: Melissa Wilson on 05-27-2024 MCV (RBC) [Entitic vol] MCV [Entitic volume] by Automated count 83.5-101 [facility] Monocytes Auto (Bld) [#/Vol] Ordered By: Melissa Wilson on 05-27-2024 Monocytes (Bld) [#/Vol] Automated blood monocyte count 0.0-0.8 [facility] Monocytes/100 WBC Auto (Bld) Ordered By: Melissa Wilson on 05-27-2024 Monocytes/100 WBC (Bld) Automated monocyte % . [facility] Neutrophils Auto (Bld) [#/Vo l]Ordered By: Melissa Wilson on 05-27-2024 Neutrophils (Bld) [#/Vol] Neutrophils [#/volume] in Blood by Automated count 1.8-7.7 [facility] Neutrophils/100 WBC Auto (Bl d)Ordered By: Melissa Wilson on 05-27-2024 Neutrophils/100 WBC (Bld) Automated neutrophil % . [facility] No Panel InformationOrdered By: Melissa Wilson on 05-27-2024 Estimated GFR (CKD-EPI) > 60.0 mL/Min [facility] Creatinine Clearance (Chem 58.16 [facility] Nucleated erythrocytes [Pres ence] in Blood by Automated countOrdered By: Melissa Wilson on 05-27-2024 Nucleated RBC Auto Ql (Bld) Nucleated erythrocytes [Presence] in Blood by Automated count 0-0.5 [facility] Platelet mean volume Auto (B ld) [Entitic vol]Ordered By: Melissa Wilson on 05-27-2024 Platelet mean volume (Bld) [Entitic vol] Platelet mean volume [Entitic volume] in Blood by Automated count 6.6-10.1 [facility] Platelets Auto (Bld) [#/Vol] Ordered By: Melisas Wilson on 05-27-2024 Platelets (Bld) [#/Vol] Platelets [#/volume] in Blood by Automated count 150-450 [facility] Potassium [Moles/volume] in Serum or PlasmaOrdered By: Melissa Wilson on 05-27-2024 Potassium [Moles/Vol] Potassium [Moles/v olume] in Serum or Plasma Low 3.5-5.1 [facility] Protein [Mass/volume] in Ser um or PlasmaOrdered By: Melissa Wilson on 05-27-2024 Protein [Mass/Vol] Protein [Mass/volume ] in Serum or Plasma 6.4-8.9 [facility] RBC Auto (Bld) [#/Vol]Ordere d By: Melissa Wilson on 05-27-2024 RBC (Bld) [#/Vol] Erythrocytes [#/volu me] in Blood by Automated count 3.90-5.60 [facility] Serum or plasma albumin/glob ulin mass ratioOrdered By: Melissa Wilson on 05-27-2024 Albumin/Globulin [Mass ratio] Serum or plasma albumin/globulin mass ratio [facility] Serum or plasma anion gap de terminationOrdered By: Melissa Wilson on 05-27-2024 Anion gap [Moles/Vol] Serum or plasma an ion gap determination 6.0-15.0 [facility] Serum or plasma iron binding capacity measurement (mass/volume)Ordered By: Melissa Wilson on 05-27-2024 Iron binding capacity [Mass/Vol] Iron binding capacity [Mass/volume] in Serum or Plasma 255-450 [facility] Serum or plasma iron saturat ion measurement (mass fraction)Ordered By: Melissa Wilson on 05-27-2024 Iron saturation [Mass fraction] Iron saturation [Mass Fraction] in Serum or Plasma High 20-50 [facility] Sodium [Moles/volume] in Ser um or PlasmaOrdered By: Melissa Wilson on 05-27-2024 Sodium [Moles/Vol] Sodium [Moles/volume ] in Serum or Plasma 136-145 [facility] Transferrin [Mass/volume] in Serum or PlasmaOrdered By: Melissa Wilson on 05-27-2024 Transferrin [Mass/Vol] Transferrin [Mass/volume] in Serum or Plasma 203-362 [facility] Urea nitrogen [Mass/volume] in Serum or PlasmaOrdered By: Melissa Wilson on 05-27-2024 Urea nitrogen [Mass/Vol] Urea nitrogen [Mass/volume] in Serum or Plasma High 7-25 [facility] WBC Auto (Bld) [#/Vol]Ordere d By: Melissa Wilson on 05-27-2024 WBC (Bld) [#/Vol] Leukocytes [#/volume ] in Blood by Automated count 4.1-10.5 [facility] Head/Face/Jaw Botulinum Inje ctionon 05-11-2024 Jodie Matthews MD 05/11/2024 1:41 PM Head/Face/Jaw Botulinum Injection Date/Time: 05/11/2024 1:32 PM Performed by: Jodie Matthews MD Authorized by: Jodie Matthews MD Consent: Consent obtained: Verbal Consent given by: Patient Procedure details: EMG used? No Electrical stimulation used? No Diluted by: Preservative free saline Medications: 100 Units onabotulinumtoxinA 100 unit; 100 Units onabotulinumtoxinA 100 unit Total units available: [...] Please call if you have difficulty swallowing. You received Toradol today for your severe headache. We are going to continue with 5 day of pills starting tomorrow to break your headache cycle. Take 1 pill with breakfast lunch dinner and bedtime for 5 days. Take with food. Try not to take your triptan or antiinflammatory during this time. If you have any nausea or diarrhea with the medicine stop and call on the next business day. [facility] Work Phone: [facility] Work Phone: CT CHEST HIGH RESOLUTIONon 1 05-08-2023 CT CHEST HIGH RESOLUTION Interpreted By: Kloby Gutierrez and Kelly Rory STUDY: CT CHEST HIGH RESOLUTION; 03/08/2024 1:41 pm INDICATION: Signs/Symptoms:ILD post covid. COMPARISON: High-resolution chest CT dated 02/16/2023 and 05/01/2022. ACCESSION NUMBER(S): [id number] ORDERING CLINICIAN: RICH MAGANA TECHNIQUE: Using helical multidetector technique, volumetric data acquisition of the chest was obtained without intravenous administration of contrast material under the high resolution chest CT protocol. Examination includes contiguous slices through the chest in supine positioning during inspiration, noncontiguous axial slices in supine positioning during expiration and prone positioning during inspiration. FINDINGS: LUNGS AND AIRWAYS: The trachea and central airways are patent. No endobronchial lesion is seen. Similar appearance and distribution of ground-glass opacities throughout the lungs bilaterally without lobar predominance though overall increased in the upper to mid lungs. Similar appearance of subpleural reticulations most evident within the bilateral upper lobes and similar compared to prior examination. No pneumothorax, consolidation, or pleural effusion. Calcified granuloma in the right lower lobe. Multifocal areas of mild lobular air trapping throughout the lungs. Prone imaging reveals no additional findings. MEDIASTINUM AND MANDI, LOWER NECK AND AXILLA: The visualized thyroid gland is within normal limits. No evidence of thoracic lymphadenopathy by CT criteria. Esophagus appears within normal limits as seen. HEART AND VESSELS: The thoracic aorta normal in course and caliber. Main pulmonary artery and its branches are normal in caliber. Mild coronary artery calcifications are seen.Please note,the study is not optimized for evaluation of coronary arteries. Mild cardiomegaly with multichamber involvement. There is no pericardial effusion seen. UPPER ABDOMEN: There is similar fatty atrophy of the pancreatic body and tail. Otherwise, the visualized subdiaphragmatic structures demonstrate no remarkable findings. CHEST WALL AND OSSEOUS STRUCTURES: Partially visualized intramuscular lipoma along the left chest wall. Nondisplaced, healing right 9th rib fracture.Unchanged appearance of a lucent lesion within the T4 vertebral body with coarse internal trabeculation compatible with interosseous hemangioma as seen on series 201, image 68.Extensive multilevel degenerative changes within visualized spine. IMPRESSION: 1. No evidence of acute pathology 2. Ground-glass opacities with subpleural reticulation and multifocal areas of lobular air trapping, similar to prior exam. Consider sequela of prior COVID-19 infection with subsequent small airways disease. 3. Mild coronary calcification. 4. Nondisplaced, healing right 9th rib fracture. I personally reviewed the images/study with Eugenio Mccann MD (Site Lead) and I agree with the findings as stated. Signed by: Kolby Gutierrez 03/08/2024 2:51 PM Dictation workstation: [id number] [facility] Comment on above: Order Comment: Supin e and prone CT Cheston 03-08-2024 1. No evidence of ac leny pathology 2. Ground-glass opacities with subpleural reticulation and multifocal areas of lobular air trapping, similar to prior exam. Consider sequela of prior COVID-19 infection with subsequent small airways disease. 3. Mild coronary calcification. 4. Nondisplaced, healing right 9th rib fracture. I personally reviewed the images/study with Eugenio Mccann MD (Site Lead) and I agree with the findings as stated. Signed by: Kolby Gutierrez 03/08/2024 2:51 PM Dictation workstation: [id number] Interpreted By: Kolby Lowe and Siobhan Becker STUDY: CT CHEST HIGH RESOLUTION; 03/08/2024 1:41 pm INDICATION: Signs/Symptoms:ILD post covid. COMPARISON: High-resolution chest CT dated 02/16/2023 and 05/01/2022. ACCESSION NUMBER(S): [id number] ORDERING CLINICIAN: RICH MAGANA TECHNIQUE: Using helical multidetector technique, volumetric data acquisition of the chest was obtained without intravenous administration of contrast material under the high resolution chest CT protocol. Examination includes contiguous slices through the chest in supine positioning during inspiration, noncontiguous axial slices in supine positioning during expiration and prone positioning during inspiration. FINDINGS: LUNGS AND AIRWAYS: The trachea and central airways are patent. No endobronchial lesion is seen. Similar appearance and distribution of ground-glass opacities throughout the lungs bilaterally without lobar predominance though overall increased in the upper to mid lungs. Similar appearance of subpleural reticulations most evident within the bilateral upper lobes and similar compared to prior examination. No pneumothorax, consolidation, or pleural effusion. Calcified granuloma in the right lower lobe. Multifocal areas of mild lobular air trapping throughout the lungs. Prone imaging reveals no additional findings. MEDIASTINUM AND MANDI, LOWER NECK AND AXILLA: The visualized thyroid gland is within normal limits. No evidence of thoracic lymphadenopathy by CT criteria. Esophagus appears within normal limits as seen. HEART AND VESSELS: The thoracic aorta normal in course and caliber. Main pulmonary artery and its branches are normal in caliber. Mild coronary artery calcifications are seen.Please note,the study is not optimized for evaluation of coronary arteries. Mild cardiomegaly with multichamber involvement. There is no pericardial effusion seen. UPPER ABDOMEN: There is similar fatty atrophy of the pancreatic body and tail. Otherwise, the visualized subdiaphragmatic structures demonstrate no remarkable findings. CHEST WALL AND OSSEOUS STRUCTURES: Partially visualized intramuscular lipoma along the left chest wall. Nondisplaced, healing right 9th rib fracture.Unchanged appearance of a lucent lesion within the T4 vertebral body with coarse internal trabeculation compatible with interosseous hemangioma as seen on series 201, image 68.Extensive multilevel degenerative changes within visualized spine. [facility] Kolby Gutierrez MD - 03/08/2024 Interpreted By: Kolby Gutierrez and Kelly Rory STUDY: CT CHEST HIGH RESOLUTION; 03/08/2024 1:41 pm INDICATION: Signs/Symptoms:ILD post covid. COMPARISON: High-resolution chest CT dated 02/16/2023 and 05/01/2022. ACCESSION NUMBER(S): [id number] ORDERING CLINICIAN: RICH MAAGNA TECHNIQUE: Using helical multidetector technique, volumetric data acquisition of the chest was obtained without intravenous administration of contrast material under the high resolution chest CT protocol. Examination includes contiguous slices through the chest in supine positioning during inspiration, noncontiguous axial slices in supine positioning during expiration and prone positioning during inspiration. FINDINGS: LUNGS AND AIRWAYS: The trachea and central airways are patent. No endobronchial lesion is seen. Similar appearance and distribution of ground-glass opacities throughout the lungs bilaterally without lobar predominance though overall increased in the upper to mid lungs. Similar appearance of subpleural reticulations most evident within the bilateral upper lobes and similar compared to prior examination. No pneumothorax, consolidation, or pleural effusion. Calcified granuloma in the right lower lobe. Multifocal areas of mild lobular air trapping throughout the lungs. Prone imaging reveals no additional findings. MEDIASTINUM AND MANDI, LOWER NECK AND AXILLA: The visualized thyroid gland is within normal limits. No evidence of thoracic lymphadenopathy by CT criteria. Esophagus appears within normal limits as seen. HEART AND VESSELS: The thoracic aorta normal in course and caliber. Main pulmonary artery and its branches are normal in caliber. Mild coronary artery calcifications are seen.Please note,the study is not optimized for evaluation of coronary arteries. Mild cardiomegaly with multichamber involvement. There is no pericardial effusion seen. UPPER ABDOMEN: There is similar fatty atrophy of the pancreatic body and tail. Otherwise, the visualized subdiaphragmatic structures demonstrate no remarkable findings. CHEST WALL AND OSSEOUS STRUCTURES: Partially visualized intramuscular lipoma along the left chest wall. Nondisplaced, healing right 9th rib fracture.Unchanged appearance of a lucent lesion within the T4 vertebral body with coarse internal trabeculation compatible with interosseous hemangioma as seen on series 201, image 68.Extensive multilevel degenerative changes within visualized spine. IMPRESSION: 1. No evidence of acute pathology 2. Ground-glass opacities with subpleural reticulation and multifocal areas of lobular air trapping, similar to prior exam. Consider sequela of prior COVID-19 infection with subsequent small airways disease. 3. Mild coronary calcification. 4. Nondisplaced, healing right 9th rib fracture. I personally reviewed the images/study with Eugenio Mccann MD (Site Lead) and I agree with the findings as stated. Signed by: Kolby Gutierrez 03/08/2024 2:51 PM Dictation workstation: [id number] [facility] Work Phone: Radiology Study observation (narrative) [facility] Work Phone: CT ChestOrdered By: Kolby hoffman on 03-08-2024 [facility] Work Phone: Pulmonary function testingon 03-08-2024 FEV1 53 liters [facility] Work Phone: FEV1/FVC 126 % [facility] Work Phone: FVC 42 liters [facility] Work Phone: [facility] Work Phone: CBC W Auto Differential pane l (Bld)on 03-03-2024 Basophils (Bld) [#/Vol] 0 10*3/uL 0.0 - 0.2 10*3/uL [facility] Basophils/100 WBC Manual cnt (Syn fld) 0.4 % . [facility] Eosinophils (Bld) [#/Vol] 0 10*3/uL 0.0 - 0.45 10*3/uL [facility] Eosinophils/100 WBC Manual cnt (Syn fld) 0.1 % . [facility] Erythrocyte distribution width (RBC) [Ratio] 14.2 % 12.0 - 14.8 % [facility] Hematocrit (Bld) [Volume fraction] 44.2 % 38.8 - 50.0 % [facility] Hemoglobin (Bld) [Mass/Vol] 14.8 g/dL 13.0 - 17.0 g/dL [facility] Interpretation and review of laboratory results Abnormal [facility] Lymphocytes (Bld) [#/Vol] 0.4 10*3/uL Low 1.00 - 4.8 10*3/uL [facility] Lymphocytes/100 WBC Manual cnt (Syn fld) 9.9 % . [facility] MCH (RBC) [Entitic mass] 30.2 pg 27.5 - 35.2 pg [facility] MCHC (RBC) [Mass/Vol] 33.5 g/dL 32.5 - 35.6 g/dL [facility] MCV (RBC) [Entitic vol] 90.1 fL 83.5 - 101 fL [facility] Monocytes (Bld) [#/Vol] 0.1 10*3/uL 0.0 - 0.8 10*3/uL [facility] Monocytes+Macrophages /100 WBC Manual cnt (Syn fld) 1.5 % . [facility] Neutrophils (Bld) [#/Vol] 3.5 10*3/uL 1.8 - 7.7 10*3/uL [facility] Neutrophils/100 WBC Manual cnt (Syn fld) 88.1 % . [facility] NRBC 0.1 /100{WBC} 0 - 0.5 /100{WBC} [facility] Platelet mean volume (Bld) [Entitic vol] 7.6 fL 6.6 - 10.1 fL [facility] Platelets (Bld) [#/Vol] 205 10*3/uL 150 - 450 10*3/uL [facility] RBC LM.HPF (Urine sed) [#/Area] 4.91 /[HPF] 3.90 - 5.60 [facility] WBC (Bld) [#/Vol] 4 10*3/uL Low 4.1 - 10.5 10*3/uL [facility] WBC LM.HPF (Urine sed) [#/Area] 4 10*3/uL Low 4.1 - 10.5 10*3/uL [facility] Complete Blood Count Auto Di ffon 03-03-2024 Basophils (Bld) [#/Vol] 0.0 10*3/uL Normal 0.0-0.2 [facility] Comment on above: Result Comment: PERF ORMED BY: [facility] [address] [place], [place] [address] PATHOLOGIST CYANIDE POT HARDENER SEBASTIAN KATZ M.D. Performed By: #### C MP, BRIAN, FE and TIBC, CBC #### [address] Basophils/100 WBC (Bld) 0.4 % Normal . [facility] Comment on above: Performed By: #### C MP, BRIAN, FE and TIBC, CBC #### [address] Eosinophils (Bld) [#/Vol] 0.0 10*3/uL Normal 0.0-0.45 [facility] Comment on above: Performed By: #### C MP, BRIAN, FE and TIBC, CBC #### [address] Eosinophils/100 WBC (Bld) 0.1 % Normal . [facility] Comment on above: Performed By: #### C MP, BRIAN, FE and TIBC, CBC #### [address] Erythrocyte distribution width (RBC) [Ratio] 14.2 % Normal 12.0-14.8 [facility] Comment on above: Performed By: #### C MP, BRAIN, FE and TIBC, CBC #### [address] Hematocrit (Bld) [Volume fraction] 44.2 % Normal 38.8-50.0 [facility] Comment on above: Performed By: #### C MP, BRIAN, FE and TIBC, CBC #### [address] Hemoglobin (Bld) [Mass/Vol] 14.8 g/dL Normal 13.0-17.0 [facility] Comment on above: Performed By: #### C MP, BRIAN, FE and TIBC, CBC #### [address] Lymphocytes (Bld) [#/Vol] 0.4 10*3/uL Low 1.00-4.8 [facility] Comment on above: Performed By: #### C MP, BRIAN, FE and TIBC, CBC #### [address] Lymphocytes/100 WBC (Bld) 9.9 % Normal . [facility] Comment on above: Performed By: #### C MP, BRIAN, FE and TIBC, CBC #### [address] MCH (RBC) [Entitic mass] 30.2 pg Normal 27.5-35.2 [facility] Comment on above: Performed By: #### C MP, BRIAN, FE and TIBC, CBC #### [address] MCV (RBC) [Entitic vol] 90.1 fL Normal 83.5-101 [facility] Comment on above: Performed By: #### C MP, BRIAN, FE and TIBC, CBC #### [address] Mean Corpuscular HGB Conc 33.5 g/dL Normal 32.5-35.6 [facility] Comment on above: Performed By: #### C MP, BRIAN, FE and TIBC, CBC #### [address] Monocytes (Bld) [#/Vol] 0.1 10*3/uL Normal 0.0-0.8 [facility] Comment on above: Performed By: #### C MP, BRIAN, FE and TIBC, CBC #### [address] Monocytes/100 WBC (Bld) 1.5 % Normal . [facility] Comment on above: Performed By: #### C MP, BRIAN, FE and TIBC, CBC #### [address] Neutrophils (Bld) [#/Vol] 3.5 10*3/uL Normal 1.8-7.7 [facility] Comment on above: Performed By: #### C MP, BRIAN, FE and TIBC, CBC #### [address] Neutrophils/100 WBC (Bld) 88.1 % Normal . [facility] Comment on above: Performed By: #### C MP, BRIAN, FE and TIBC, CBC #### [address] NRBC% 0.1 /100{WBC} Normal 0-0.5 [facility] Comment on above: Performed By: #### C MP, BRIAN, FE and TIBC, CBC #### [address] Platelet mean volume (Bld) [Entitic vol] 7.6 fL Normal 6.6-10.1 [facility] Comment on above: Performed By: #### C MP, BRIAN, FE and TIBC, CBC #### [address] Platelets (Bld) [#/Vol] 205 10*3/uL Normal 150-450 [facility] Comment on above: Performed By: #### C MP, BRIAN, FE and TIBC, CBC #### [address] RBC (Bld) [#/Vol] 4.91 10*6/uL Normal 3.90-5.60 [facility] Comment on above: Performed By: #### C MP, BRIAN, FE and TIBC, CBC #### [address] WBC (Bld) [#/Vol] 4.0 10*3/uL Low 4.1-10.5 [facility] Comment on above: Performed By: #### C MP, BRIAN, FE and TIBC, CBC #### [address] Comprehensive Metabolic Pane [facility] 03-03-2024 Albumin [Mass/Vol] 3.9 g/dL Normal 3.5-5.7 [facility] Comment on above: Performed By: #### C MP, BRIAN, FE and TIBC, CBC #### [address] Albumin/Globulin [Mass ratio] 1.0 {ratio} Normal [facility] Comment on above: Performed By: #### C MP, BRIAN, FE and TIBC, CBC #### [address] ALP [Catalytic activity/Vol] 94 U/L Normal 34-104 [facility] Comment on above: Performed By: #### C MP, BRIAN, FE and TIBC, CBC #### [address] ALT [Catalytic activity/Vol] 8 U/L Normal 7-52 [facility] Comment on above: Performed By: #### C MP, BRIAN, FE and TIBC, CBC #### [address] Anion gap [Moles/Vol] 8.6 mmol/L Normal 6.0-15.0 [facility] Comment on above: Performed By: #### C MP, BRIAN, FE and TIBC, CBC #### [address] AST [Catalytic activity/Vol] 14 U/L Normal 13-39 [facility] Comment on above: Performed By: #### C MP, BRIAN, FE and TIBC, CBC #### [address] Bilirubin [Mass/Vol] 0.4 mg/dL Normal 0.3-1.0 [facility] Comment on above: Performed By: #### C MP, BRIAN, FE and TIBC, CBC #### [address] Calcium [Mass/Vol] 8.4 mg/dL Low 8.6-10.3 [facility] Comment on above: Performed By: #### C MP, BRIAN, FE and TIBC, CBC #### [address] Chloride [Moles/Vol] 110 mmol/L High 98-107 [facility] Comment on above: Performed By: #### C MP, BRIAN, FE and TIBC, CBC #### [facility] [address] CO2 [Moles/Vol] 23.6 mmol/L Normal 21.0-31.0 [facility] Comment on above: Performed By: #### C MP, BRIAN, FE and TIBC, CBC #### [facility] [address] Creatinine [Mass/Vol] 1.00 mg/dL Normal 0.70-1.30 [facility] Comment on above: Performed By: #### C MP, BRIAN, FE and TIBC, CBC #### [place] [address] [place] Creatinine Clr Calc Pharmacy 75.61 Normal [facility] Comment on above: Performed By: #### C MP, BRIAN, FE and TIBC, CBC #### [address] GFR/1.73 sq M.predicted MDRD (S/P/Bld) [Vol rate/Area] mL/min/{1.73_m2} Normal [facility] Comment on above: Performed By: #### C MP, BRIAN, FE and TIBC, CBC #### [address] Globulin (S) [Mass/Vol] 3.8 g/dL Normal [facility] Comment on above: Performed By: #### C MP, BRIAN, FE and TIBC, CBC #### [address] Glucose [Mass/Vol] 119 mg/dL High 70-100 [facility] Comment on above: Result Comment: [place] Glucose Reference Range is dependent on time and content of last meal. Glucose of more than 200 mg/dL in a nonstressed, ambulatory subject supports the diagnosis of Diabetes Mellitus. ADA recommended reference range Performed By: #### C MP, BRIAN, FE and TIBC, CBC #### [address] Potassium [Moles/Vol] 4.2 mmol/L Normal 3.5-5.1 [facility] Comment on above: Performed By: #### C MP, BRIAN, FE and TIBC, CBC #### [address] Protein [Mass/Vol] 7.7 g/dL Normal 6.4-8.9 [facility] Comment on above: Performed By: #### C MP, BRIAN, FE and TIBC, CBC #### [address] Sodium [Moles/Vol] 138 mmol/L Normal 136-145 [facility] Comment on above: Performed By: #### C MP, BRIAN, FE and TIBC, CBC #### [address] Urea nitrogen [Mass/Vol] 24 mg/dL Normal 7-25 [facility] Comment on above: Performed By: #### C MP, BRIAN, FE and TIBC, CBC #### [address] Ferritinon 03-03-2024 Ferritin [Mass/Vol] 36.1 ng/mL Normal 23.9-336.2 [facility] Comment on above: Result Comment: PERF ORMED BY: [place] [address] PATHOLOGIST CYANIDE POT HARDENER SEBASTIAN KATZ M.D. Performed By: #### C MP, BRIAN, FE and TIBC, CBC #### [address] Iron and TIBC Profileon 02-03 % Iron Saturation 28.0 % Normal 20-50 [facility] Comment on above: Performed By: #### C MP, BRIAN, FE and TIBC, CBC #### [address] Iron [Mass/Vol] 100 ug/dL Normal 50-212 [facility] Comment on above: Performed By: #### C MP, BRIAN, FE and TIBC, CBC #### [address] [place] [address] [facility] Total Iron Binding Capacity 357 ug/dL Normal 255-450 [facility] Comment on above: Performed By: #### C MP, BRIAN, FE and TIBC, CBC #### [facility] [address] [place] [phone] [facility] Transferrin [Mass/Vol] 255 mg/dL Normal 203-362 [facility] Comment on above: Performed By: #### C MP, RBIAN, FE and TIBC, CBC #### [facility] [address] [place] [id number] [facility] Pulmonary function testingon 02-16-2024 FEV1 40 liters [facility] Work Phone: FEV1/FVC 120 % [facility] Work Phone: FVC 33 liters [facility] Work Phone: [facility] Work Phone: IgG [Mass/volume] in Serum o r Plasmaon 02-04-2024 IgG [Mass/Vol] 1239 mg/dL [phone] [facility] Comment on above: Performed at: [address] Director: Wilfredo Lee PhD, Phone: [phone] Head/Face/Jaw Botulinum Inje ctionon 01-11-2024 Jodie Matthews MD 01/11/2024 3:13 PM Head/Face/Jaw Botulinum Injection Date/Time: 01/11/2024 2:37 PM Performed by: Jodie Matthews MD Authorized by: Jodie Matthews MD Consent: Consent obtained: Verbal Consent given by: Patient Procedure details: EMG used? No Electrical stimulation used? No Diluted by: Preservative free saline Toxin (Brand): OnaBoNT-A (Botox) Total units available: 200 Ad hoc region [...] Please call if you have difficulty swallowing. You received Toradol today for your severe headache. We are going to continue with 5 day of pills starting tomorrow to break your headache cycle. Take 1 pill with breakfast lunch dinner and bedtime for 5 days. Take with food. Try not to take your triptan or antiinflammatory during this time. If you have any nausea or diarrhea with the medicine stop and call on the next business day. [facility] Work Phone: [facility] Work Phone: Main OR Intraoperative Recor don 12-29-2023 Main OR Intraoperative Record Main OR Intraoperative Record IntraOp Document Type FTPM Summary Primary Physician: Issa Gonzales DO Finalized Date/Time: 12/29/23 08:55:07 Pt. Name: YUDIVELIA/Sex: 1960 Male Med Rec #: [id number] Physician: Issa Gonzales DO Financial #: [id number] Pt. Type: P Room/Bed: / Admit/Disch: 12/29/23 07:38:46 - Institution: Case Times FTPM Entry 1 Patient Times In Room 12/29/23 08:50:00 Out Room 12/29/23 08:55:00 Procedure Times Start 12/29/23 08:53:00 Stop 12/29/23 08:54:00 Anesthesia Times Last Modified By: Fabi Edmonds RN 12/29/23 08:54:47 Case Attendance FTPM Entry 1 Entry 2 Entry 3 Case Attendee Issa Gonzales DO, Alissa M Pritchard RN, Madison A Role Performed Surgeon - Primary Top[employer]cher [employer] Liaison - Primary Time In 12/29/23 08:50:00 12/29/23 08:50:00 12/29/23 08:50:00 Time Out 12/29/23 08:55:00 12/29/23 08:55:00 12/29/23 08:55:00 Procedure LUMBAR EPIDURAL STEROID LUMBAR EPIDURAL STEROID LUMBAR EPIDURAL STEROID INJECTION(.) INJECTION(.) INJECTION(.) Comments Last Modified By: Fabi Edmonds RN, RN, Madison A Pritchard RN, Madison A 12/29/23 08:54:48 12/29/23 08:54:48 12/29/23 08:54:48 Entry 4 Case Attendee Janki Herrera RN Role Performed Scrub - Primary Time In 12/29/23 08:50:00 Time Out 12/29/23 08:55:00 Procedure LUMBAR EPIDURAL STEROID INJECTION(.) Comments Last Modified By: Fabi Edmonds RN 12/29/23 08:54:48 Perioperative Protocols FTPM Pre-Care Text: Implements protective measures prior to operative or invasive procedure, confirms identity before the operative or invasive procedure, verifies operative procedure, surgical site, and laterality Entry 1 Procedure(s) LUMBAR EPIDURAL STEROID Patient Identity Birthday, ID Band INJECTION(.) Verified (select at Check, Patient least 2): Participation Consents / H and P H&P, Surgery/Procedure Operative Site Present Verified Consent Marking Verified Surgical Site Yes Laterality Verified Yes Verified Procedure Verified Yes Correct Patient Yes Position Verified Availability Equipment, Medication, Prep Dry Yes Verified (If X-ray Applicable) PreOp Antibiotic No Time Out Fabi Edmonds RN, Javier GONZALEZ, Christian King DO, Bradford A., Daniel, Alissa M Time Out Complete 12/29/23 08:50:00 Outcomes Met? Yes Last Modified By: Fabi Edmonds RN 12/29/23 08:50:32 Post-Care Text: The patient is free from signs and symptoms of injury caused by extraneous objects Allergy Information FTPM Pre-Care Text: Verifies allergies Entry 1 Allergies Reviewed? Yes Allergies Reviewed Self/Patient With Outcomes Met? Yes Last Modified By: Fabi Edmonds RN 12/29/23 08:17:32 Post-Care Text: The patient received appropriate medication(s) safely administered during the perioperative period Surgical Procedures FTPM Entry 1 Procedure Description Procedure LUMBAR EPIDURAL STEROID Modifiers . INJECTION Surgeon Description L5-S1 DUYEN Primary Procedure Yes Primary Surgeon Issa Gonzales DO Start 12/29/23 08:53:00 Stop 12/29/23 08:54:00 Anesthesia Type None Surgical Service Pain Management Wound Class 1 - Clean Last Modified By: Fabi Edmonds RN 12/29/23 08:54:49 General Case Data FTPM Pre-Care Text: Classifies surgical wound, implements aseptic technique, initiates traffic control Entry 1 Case Information OR Pain Proc Room Case Level Level 2 Wound Class 1 - Clean Specialty Pain Management Preop Diagnosis M54.17 Postop Same As Preop Yes Postop Diagnosis M54.17 Outcomes Met? Yes Last Modified By: Fabi Edmonds RN 12/29/23 08:50:41 Post-Care Text: The patient is free from signs and symptoms of infection Skin Assessment (Pre Procedure) FTPM Pre-Care Text: Implements protective measures to prevent skin/ tissue injury due to thermal or mechanical sources Evaluates for signs and symptoms of physical injury to skin and tissue Entry 1 Skin Integrity Intact, [place], Warm, & Skin Abnormality No Dry Outcomes Met? Yes Last Modified By: Fabi Edmonds RN 12/29/23 08:17:39 Post-Care Text: The patient is free from signs and symptoms of injury caused by extraneous objects Patient Positioning FTPM Pre-Care Text: Identifies physical alterations that require additional precautions for procedure-specific positioning, verifies presence of prosthetics or corrective devices, positions the patient, evaluates the patient for signs and symptoms of injury as a result of positioning Entry 1 Procedure LUMBAR EPIDURAL STEROID Body Position Prone INJECTION(.) Feet Uncrossed? Yes Left Arm Position Resting at Side Right Arm Position Resting at Side Left Leg Position Extended Right Leg Position Extended Positioning Device Pillow Under Head Large, Safety Strap, Pillow Large Under Knees Press Points Checked Yes By Kendal GONZALEZ (more content not included)... [facility] Main OR Preoperative Recordo n 12-29-2023 Main OR Preoperative Record Main OR Preoperative Record Holding Area Document Type FTPM Summary Primary Physician: Issa Gonzales DO Finalized Date/Time: 12/29/23 07:45:28 Pt. Name: VELIA BAGLEY/Sex: 1960 Male Med Rec #: [id number] Physician: Issa Gonzales DO Financial #: [id number] Pt. Type: P Room/Bed: / Admit/Disch: 12/29/23 07:38:46 - Institution: Case Times Holding FTPM Pre-Care Text: Verifies consent for planned procedure, identifies individual values and wishes concerning care, includes family members in perioperative teaching Secures patient's records' belongings, and valuables, maintains patient's dignity and privacy, and maintains patient confidentiality Entry 1 In Holding 12/29/23 07:42:00 Outcomes Met? Yes Last Modified By: Salma Saeed RN 12/29/23 07:42:03 Post-Care Text: The patient participates in decisions affecting his or her perioperative plan of care The patient's right to privacy is maintained Surgery Checklist FTPM Entry 1 Patient Birthday, ID Band Procedure History and Physical, Identification: Check, Patient Verification: Surgical Consent, With Participation Patient NPO after Midnight: Yes Date/Time: 12/29/23 07:42:00 Results Reviewed NA Personal Items: Glasses Comments: Personal Items Glasses Complaints of Pain: Yes Comment: Pain Comment: 12/11 Lower back Operative Site Yes Marking: Marked By: Dr. Gonzales Location: L5-S1 Availability Equipment, X-Ray Verified: Does Patient Smoke No Patient states Yes Comment - Adult Devin friend postop adult Supervision supervision available Case Cancelled in No Holding Area see comments below for reason Last Modified By: Salma Saeed RN 12/29/23 07:45:26 Finalized By: Salma Saeed RN Document Signatures Signed By: Salma Saeed RN 12/29/23 07:45 Normal [facility] Estimated glomerular filtrat ion rate (GFR) non- Americanon 12-10-2023 GFR/1.73 sq M.predicted among non-blacks MDRD (S/P/Bld) [Vol rate/Area] mL/min/{1.73_m2} >=60 [facility] Globulin Calc (S) [Mass/Vol] on 12-10-2023 Globulin (S) [Mass/Vol] 3.5 g/dL [facility] IgG [Mass/volume] in Serum o r Plasmaon 12-10-2023 IgG [Mass/Vol] 1047 mg/dL [phone] [facility] Comment on above: Performed at: [address] [place], [place] [id number] Director: Wilfredo Lee PhD, Phone: [phone] Laboratory - Chemistry and C hemistry - challengeon 12-10-2023 Albumin [Mass/Vol] 3.1 g/dL Low 3.4-5.0 [facility] ALP [Catalytic activity/Vol] 109 U/L 46-116 [facility] ALT [Catalytic activity/Vol] 8 U/L Low 16-63 [facility] AST [Catalytic activity/Vol] U/L Low 15-37 [facility] Bilirubin [Mass/Vol] 0.3 mg/dL 0.2-1.0 [facility] Calcium [Mass/Vol] 8.0 mg/dL Low 8.5-10.1 [facility] Chloride [Moles/Vol] 105 mmol/L 98-107 [facility] CO2 [Moles/Vol] 22.7 mmol/L 21.0-32.0 [facility] Creatinine [Mass/Vol] 0.96 mg/dL 0.70-1.[address] [facility] GFR/1.73 sq M.predicted MDRD (S/P/Bld) [Vol rate/Area] mL/min/{1.73_m2} >=60 [facility] Glucose [Mass/Vol] 118 mg/dL High 74-106 [facility] Potassium [Moles/Vol] 3.3 mmol/L Low 3.5-5.[address] [facility] Protein [Mass/Vol] 6.6 g/dL 6.4-8.2 [facility] Sodium [Moles/Vol] 136 mmol/L 136-145 [facility] Urea nitrogen [Mass/Vol] 26.0 mg/dL High 7.0-18.0 [facility] Urea nitrogen/Creatinine [Mass ratio] 27.1 mg/mg [facility] Serum or plasma albumin/glob ulin mass ratioon 12-10-2023 Albumin/Globulin [Mass ratio] 0.9 {ratio} [facility] Serum or plasma anion gap de terminationon 12-10-2023 Anion gap [Moles/Vol] 11.6 mmol/L [facility] [employer] Drug Screen-LCon 024 Test Name toxassure 23 Invalid Interpretation Code [facility] Comment on above: Performed By: #### 1 [id number] #### [facility] [address] [place] [address] Reference Laboratory Testing Ordered By: Becky Aguiar on 12-04-2023 Test Name toxassure 23 Invalid Interpretation Code [facility] Comprehensive metabolic 2000 panelon 11-30-2023 Albumin BCP dye [Mass/Vol] 4.7 g/dL Normal 3.4-5.0 [facility] Comment on above: Performed By: #### 2 4323-8 #### CRISTIN Gutierrez ([id number]) [facility] ([facility]) [id number] [place] [address] ALP [Catalytic activity/Vol] 115 U/L Normal 33-136 [facility] Comment on above: Performed By: #### 2 4323-8 #### CRISTIN Gutierrez ([id number]) [facility] ([facility]) [id number] [place] [address] 71553 ALT With P-5'-P [Catalytic activity/Vol] 13 U/L Normal 10-52 [facility] Comment on above: Result Comment: Mima ents treated with Sulfasalazine may generate falsely decreased results for ALT. Performed By: #### 2 4323-8 #### CRISTIN Gutierrez ([id number]) [facility] ([facility]) [id number] [place] [address]60 Anion gap [Moles/Vol] 13 mmol/L Normal 10-20 [facility] Comment on above: Performed By: #### 2 4323-8 #### CRISTIN Gutierrez ([id number]) [facility] ([facility]) [address] [place] [address] 65681 AST With P-5'-P [Catalytic activity/Vol] 16 U/L Normal 9-39 [facility] Comment on above: Performed By: #### 2 4323-8 #### CRISTIN Gutierrez ([id number]) [facility] ([facility]) [address] [place] [address] Bilirubin [Mass/Vol] 0.8 mg/dL Normal 0.0-1.2 [facility] Comment on above: Performed By: #### 2 4323-8 #### CRISTIN Gutierrez ([id number]) [facility] ([facility]) [address] [place] [address] Calcium [Mass/Vol] 9.8 mg/dL Normal 8.6-10.6 [facility] Comment on above: Performed By: #### 2 4323-8 #### CRISTIN DELATORRE L ([id number]) [facility] ([facility]) [address] [place] [address] Chloride [Moles/Vol] 105 mmol/L Normal 98-107 [facility] Comment on above: Performed By: #### 2 4323-8 #### CRISTIN DELATORRE L ([id number]) [facility] ([facility]) [address] [place] [address] 67664 CO2 [Moles/Vol] 21 mmol/L Normal 21-32 [facility] Comment on above: Performed By: #### 2 4323-8 #### CRISTIN DELATORRE L ([id number]) [facility] ([facility]) [address] [place] [address] Creatinine [Mass/Vol] 0.93 mg/dL Normal 0.50-1.30 [facility] Comment on above: Performed By: #### 2 4323-8 #### CRISTIN DELATORRE L ([id number]) [facility] ([facility]) [address] [place] [address] GFR/1.73 sq M.predicted MDRD (S/P/Bld) [Vol rate/Area] mL/min/{1.73_m2} Normal >60 [facility] Comment on above: Result Comment: Calc ulations of estimated GFR are performed using the 2020 CKD-EPI Study Refit equation without the race variable for the IDMS-Traceable creatinine methods. https://jasn.asnjournals.org/content//ASN.541187 0338 Performed By: #### 2 4323-8 #### CRISTIN Gutierrez ([id number]) [facility] ([facility]) [id number] [place] [address]82 Glucose [Mass/Vol] 100 mg/dL High 74-99 [facility] Comment on above: Performed By: #### 2 4323-8 #### CRISTIN Gutierrez ([id number]) [facility] ([facility]) [address] [place] [address] 49874 Potassium [Moles/Vol] 4.1 mmol/L Normal 3.5-5.3 [facility] Comment on above: Performed By: #### 2 4323-8 #### CRISTIN Gutierrez ([id number]) [facility] ([facility]) [id number] [place] [address] 07429 Protein [Mass/Vol] 8.0 g/dL Normal 6.4-8.2 [facility] Comment on above: Performed By: #### 2 4323-8 #### CRISTIN Gutierrez ([id number]) [facility] ([facility]) [address] [place] [address] 23259 Sodium [Moles/Vol] 135 mmol/L Low 136-145 [facility] Comment on above: Performed By: #### 2 4323-8 #### CRISTIN Gutierrez ([id number]) [facility] ([facility]) [address] [place] [address]8426 Urea nitrogen [Mass/Vol] 29 mg/dL High 6-23 [facility] Comment on above: Performed By: #### 2 4323-8 #### CRISTIN Gutierrez ([id number]) [facility] ([facility]) [address] [place] [address] 13041 US venous duplex NEGRA Reina US venous duplex NEGRA [facility] Main [place] [address] [place] [address] Ultrasound Report Signed Patient: Velia Bagley MR#: [id number] 67 : 1960 Acct:[id number] Age/Sex: 63 / M ADM Date: 11/24/23 Loc: Room: Type: [facility] Attending Dr: Jessica RICHARDSONC Ordering Provider: SKY Romero Date of Service: 11/24/23 US/US venous duplex LE BI: M79.662 - Pain in left lower leg Copies to: SKY Romero BILATERAL LOWER EXTREMITY VENOUS DUPLEX INDICATION: Left leg pain PROCEDURE: Color-flow duplex scanning is used to interrogate the deep venous system of the right and left lower extremities. The common femoral vein, femoral vein and popliteal vein show good compressibility with normal proximal and distal augmentation. The posterior tibial and peroneal veins are compressible. A right inguinal lymph node is noted that is 3.7 x 1.4 x 1.9 cm US/US venous duplex LE BI IMPRESSION: NO EVIDENCE FOR DEEP VEIN THROMBOSIS OR PROXIMAL SUPERFICIAL THROMBOPHLEBITIS IN THE RIGHT OR LEFT LOWER EXTREMITY. Right inguinal lymph node Impression dictated by: Jayant Davis M.D.11/25/2023 4:12 PM Dictation Location: [place] [address] Tech: Joietres Franklin Transcribed By: MEI 11/25/23 1612 Dictated By: Jayant Davis MD 11/25/23 161 Signed By: 11/25/23 161 Normal [facility] Automated basophil %Ordered By: Melissa Wilson on 11-24-2023 Basophils/100 WBC (Bld) 0.7 % Normal . [facility] Comment on above: Performed By: #### F ER, CBC, FE and TIBC ####[facility] [id number] [place] [id number] [facility] Automated basophil countOrde red By: Melissa Wilson on 11-24-2023 Basophils (Bld) [#/Vol] 0.0 10*3/uL Normal 0.0-0.2 [facility] Comment on above: Result Comment: PERF ORMED BY: [facility] [address] [place] [address] PATHOLOGIST CYANIDE POT HARDENER SEBASTIAN KATZ M.D. Performed By: #### F ER, CBC, FE and TIBC ####[address] Automated blood monocyte cou ntOrdered By: Melissa Wilson on 11-24-2023 Monocytes (Bld) [#/Vol] 0.4 10*3/uL Normal 0.0-0.8 [facility] Comment on above: Performed By: #### F ER, CBC, FE and TIBC ####[address] Automated eosinophil %Ordere d By: Melissa Wilson on 11-24-2023 Eosinophils/100 WBC (Bld) 0.3 % Normal . [facility] Comment on above: Performed By: #### F ER, CBC, FE and TIBC ####[address] Automated eosinophil countOr dered By: Melissa Nielsonbetsey on 11-24-2023 Eosinophils (Bld) [#/Vol] 0.0 10*3/uL Normal 0.0-0.45 [facility] Comment on above: Performed By: #### F ER, CBC, FE and TIBC ####[address] Automated monocyte %Ordered By: Melissa Nielsonbetsey on 11-24-2023 Monocytes/100 WBC (Bld) 7.1 % Normal . [facility] Comment on above: Performed By: #### F ER, CBC, FE and TIBC ####[address] Automated neutrophil %Ordere d By: Melissa Wilson on 11-24-2023 Neutrophils/100 WBC (Bld) 59.8 % Normal . [facility] Comment on above: Performed By: #### F ER, CBC, FE and TIBC ####[address] Complete Blood Count Auto Di ffon 11-24-2023 Mean Corpuscular HGB Conc 33.5 g/dL Normal 32.5-35.6 [facility] Comment on above: Performed By: #### F ER, CBC, FE and TIBC ####[address] NRBC% 0.2 /100{WBC} Normal 0-0.5 [facility] Comment on above: Performed By: #### F ER, CBC, FE and TIBC ####[address] Erythrocyte distribution wid th [Ratio] by Automated countOrdered By: Melissa Steve on 11-24-2023 Erythrocyte distribution width (RBC) [Ratio] 14.1 % Normal 12.0-14.8 [facility] Comment on above: Performed By: #### F ER, CBC, FE and TIBC ####[address] Erythrocytes [#/volume] in B lood by Automated countOrdered By: Melissa Wilson on 11-24-2023 RBC (Bld) [#/Vol] 4.81 10*6/uL Normal 3.90-5.60 [facility] Comment on above: Performed By: #### F ER, CBC, FE and TIBC ####[place] [id number] [facility] Ferritin [Mass/volume] in Se rum or PlasmaOrdered By: Melissa Wilson on 11-24-2023 Ferritin [Mass/Vol] 71.0 ng/mL Normal 23.9-336.2 [facility] Comment on above: Result Comment: PERF ORMED BY: [facility] [address] [place] [address] PATHOLOGIST CYANIDE POT HARDENER SEBASTIAN KATZ M.D. Performed By: #### F ER, CBC, FE and TIBC ####[address] Hematocrit [Volume Fraction] of Blood by Automated countOrdered By: Melissa Wilson on 11-24-2023 Hematocrit (Bld) [Volume fraction] 43.9 % Normal 38.8-50.0 [facility] Comment on above: Performed By: #### F ER, CBC, FE and TIBC ####[place] [id number] [facility] Hemoglobin [Mass/volume] in BloodOrdered By: Melissa Wilson on 11-24-2023 Hemoglobin (Bld) [Mass/Vol] 14.7 g/dL Normal 13.0-17.0 [facility] Comment on above: Performed By: #### F ER, CBC, FE and TIBC ####[place] [id number] [facility] Iron [Mass/volume] in Serum or PlasmaOrdered By: Melissa Wilson on 11-24-2023 Iron [Mass/Vol] 80 ug/dL Normal 50-212 [facility] Comment on above: Performed By: #### F ER, CBC, FE and TIBC ####[place] [id number] [facility] Iron and TIBC Profileon 11-02 % Iron Saturation 26.5 % Normal 20-50 [facility] Comment on above: Performed By: #### F ER, CBC, FE and TIBC ####[place] [id number] [facility] Total Iron Binding Capacity 302 ug/dL Normal 255-450 [facility] Comment on above: Performed By: #### F ER, CBC, FE and TIBC ####[place] [id number] [facility] Iron binding capacity [Mass/ volume] in Serum or PlasmaOrdered By: Melissa Wilson on 11-24-2023 Iron binding capacity [Mass/Vol] 302 ug/dL 255-450 [facility] Iron saturation [Mass Fracti on] in Serum or PlasmaOrdered By: Melissa Wilson on 11-24-2023 Iron saturation [Mass fraction] 26.5 % 20-50 [facility] Leukocytes [#/volume] correc adalberto for nucleated erythrocytes in Blood by Automated counOrdered By: Melissa Wilson on 11-24-2023 WBC corrected for nucl RBC Auto (Bld) [#/Vol] 5.0 10*3/uL 4.1-10.5 [facility] Leukocytes [#/volume] in Blo od by Automated countOrdered By: Melissa Steve on 11-24-2023 WBC (Bld) [#/Vol] 5.0 10*3/uL Normal 4.1-10.5 [facility] Comment on above: Performed By: #### F ER, CBC, FE and TIBC ####[address] Lymphocytes [#/volume] in Bl ood by Automated countOrdered By: Melissa Wilson on 11-24-2023 Lymphocytes (Bld) [#/Vol] 1.6 10*3/uL Normal 1.00-4.8 [facility] Comment on above: Performed By: #### F ER, CBC, FE and TIBC ####[address] Lymphocytes/100 leukocytes i n Blood by Automated countOrdered By: Melissa Wilson on 11-24-2023 Lymphocytes/100 WBC (Bld) 32.1 % Normal . [facility] Comment on above: Performed By: #### F ER, CBC, FE and TIBC ####[address] MCH [Entitic mass] by Automa adalberto countOrdered By: Melissa Wilson on 11-24-2023 MCH (RBC) [Entitic mass] 30.6 pg Normal 27.5-35.2 [facility] Comment on above: Performed By: #### F ER, CBC, FE and TIBC ####[address] MCHC Auto (RBC) [Mass/Vol]Or dered By: Melissa Wislon on 11-24-2023 MCHC (RBC) [Mass/Vol] 33.5 g/dL 32.5-35.[address] [facility] MCV [Entitic volume] by Auto mated countOrdered By: Melissa Wilson on 11-24-2023 MCV (RBC) [Entitic vol] 91.1 fL Normal 83.5-101 [facility] Comment on above: Performed By: #### F ER, CBC, FE and TIBC ####[address] Neutrophils [#/volume] in Bl ood by Automated countOrdered By: Melissa Steve on 11-24-2023 Neutrophils (Bld) [#/Vol] 3.0 10*3/uL Normal 1.8-7.7 [facility] Comment on above: Performed By: #### F ER, CBC, FE and TIBC ####[address] Nucleated erythrocytes [Pres ence] in Blood by Automated countOrdered By: Melissa Steve on 11-24-2023 Nucleated RBC Auto Ql (Bld) 0.2 /100{WBC} 0-0.5 [facility] Platelet mean volume [Entiti c volume] in Blood by Automated countOrdered By: Melissa Steve on 11-24-2023 Platelet mean volume (Bld) [Entitic vol] 8.0 fL Normal 6.6-10.1 [facility] Comment on above: Performed By: #### F ER, CBC, FE and TIBC ####[address] Platelets [#/volume] in Bloo d by Automated countOrdered By: Melissa Steve on 11-24-2023 Platelets (Bld) [#/Vol] 183 10*3/uL Normal 150-450 [facility] Comment on above: Performed By: #### F ER, CBC, FE and TIBC ####[place] [id number] [facility] Transferrin [Mass/volume] in Serum or PlasmaOrdered By: Melissa Steve on 11-24-2023 Transferrin [Mass/Vol] 216 mg/dL Normal 203-362 [facility] Comment on above: Performed By: #### F ER, CBC, FE and TIBC ####[address] XR ankle LT min 3V*on 2023 XR ankle LT min 3V* [facility] [address] [place] [address] XRay Report Signed Patient: Velia Bagley MR#: [id number] 67 : 1960 Acct:[id number] Age/Sex: 63 / M ADM Date: 11/24/23 Loc: [facility] Room: Type: [facility] Attending Dr: Jessica Rodriguez NP-C Copies to: SKY Romero Ordering Provider: SKY Romero Date of Service: 11/24/23 XR/XR ankle LT min 3V*: M25.572 - Pain in left ankle and joints of left foot LEFT ANKLE - 3 views CLINICAL HISTORY: Left ankle pain. No known injury. COMPARISON: None FINDINGS: No focal soft tissue abnormality or acute bony process. Ankle mortise appears intact with minimal degenerative change. Plantar spurring. XR/XR ankle LT min 3V* IMPRESSION: NO ACUTE BONY PROCESS. MINIMAL DEGENERATIVE CHANGE OF THE ANKLE MORTISE WITH PLANTAR SPURRING. Impression dictated by: Dustin Last Jr., MarinaOSindi11/24/2023 3:37 PM Dictation Location: [place] [address] Transcribed By: [facility] 11/24/23 1537 Dictated By: Dustin Last Jr, DO 11/24/23 1537 Signed By: 11/24/23 1537 Normal [facility] Estimated glomerular filtrat ion rate (GFR) non- Americanon 11-12-2023 GFR/1.73 sq M.predicted among non-blacks MDRD (S/P/Bld) [Vol rate/Area] mL/min/{1.73_m2} >=60 [facility] Globulin Calc (S) [Mass/Vol] on 11-12-2023 Globulin (S) [Mass/Vol] 3.2 g/dL [facility] IgG [Mass/volume] in Serum o r Plasmaon 11-12-2023 IgG [Mass/Vol] 1036 mg/dL [phone] [facility] Comment on above: Performed at: [address] [place], [place] [id number] Director: Wilfredo Lee PhD, Phone: [phone] Laboratory - Chemistry and C hemistry - challengeon 11-12-2023 Albumin [Mass/Vol] 3.1 g/dL Low 3.4-5.0 [facility] ALP [Catalytic activity/Vol] 94 U/L 46-116 [facility] ALT [Catalytic activity/Vol] 17 U/L 16-63 [facility] AST [Catalytic activity/Vol] 12 U/L Low 15-37 [facility] Bilirubin [Mass/Vol] 0.9 mg/dL 0.2-1.0 [facility] Calcium [Mass/Vol] 8.2 mg/dL Low 8.5-10.1 [facility] Chloride [Moles/Vol] 101 mmol/L 98-107 [facility] CO2 [Moles/Vol] 23.5 mmol/L 21.0-32.0 [facility] Creatinine [Mass/Vol] 1.21 mg/dL 0.70-1.[address] [facility] GFR/1.73 sq M.predicted MDRD (S/P/Bld) [Vol rate/Area] mL/min/{1.73_m2} >=60 [facility] Glucose [Mass/Vol] 119 mg/dL High 74-106 [facility] Potassium [Moles/Vol] 3.2 mmol/L Low 3.5-5.[address] [facility] Protein [Mass/Vol] 6.3 g/dL Low 6.4-8.2 [facility] Sodium [Moles/Vol] 134 mmol/L Low 136-145 [facility] Urea nitrogen [Mass/Vol] 15.0 mg/dL 7.0-18.0 [facility] Urea nitrogen/Creatinine [Mass ratio] 12.4 mg/mg [facility] Serum or plasma albumin/glob ulin mass ratioon 11-12-2023 Albumin/Globulin [Mass ratio] 1.0 {ratio} [facility] Serum or plasma anion gap de terminationon 11-12-2023 Anion gap [Moles/Vol] 12.7 mmol[facility] Basophils Auto (Bld) [#/Vol] on 10-31-2023 Basophils (Bld) [#/Vol] 0.0 10 3/uL 0.0-0.1 [facility] Basophils/100 WBC Auto (Bld) on 10-31-2023 Basophils/100 WBC (Bld) 0.1 % Low 0.2-2.0 [facility] Eosinophils/100 WBC Auto (Bl d)on 10-31-2023 Eosinophils/100 WBC (Bld) 0.0 % Low 0.9-7.0 [facility] Erythrocyte distribution wid th Auto (RBC) [Ratio]on 10-31-2023 Erythrocyte distribution width (RBC) [Ratio] 13.3 % 11.0-15.0 [facility] Estimated glomerular filtrat ion rate (GFR) non- Americanon 10-31-2023 GFR/1.73 sq M.predicted among non-blacks MDRD (S/P/Bld) [Vol rate/Area] mL/min/{1.73_m2} >=60 [facility] Globulin Calc (S) [Mass/Vol] on 10-31-2023 Globulin (S) [Mass/Vol] 3.8 g/dL [facility] Hematocrit Auto (Bld) [Volum e fraction]on 10-31-2023 Hematocrit (Bld) [Volume fraction] 45.9 % 42.0-54.0 [facility] Hemoglobin [Mass/volume] in Bloodon 10-31-2023 Hemoglobin (Bld) [Mass/Vol] 15.9 g/dL 14.0-18.0 [facility] Laboratory - Chemistry and C hemistry - challengeon 10-31-2023 Albumin [Mass/Vol] 3.0 g/dL Low 3.4-5.0 [facility] ALP [Catalytic activity/Vol] 100 U/L 46-116 [facility] ALT [Catalytic activity/Vol] 16 U/L 16-63 [facility] AST [Catalytic activity/Vol] 13 U/L Low 15-37 [facility] Bilirubin [Mass/Vol] 0.5 mg/dL 0.2-1.0 [facility] Calcium [Mass/Vol] 8.2 mg/dL Low 8.5-10.1 [facility] Chloride [Moles/Vol] 103 mmol/L 98-107 [facility] CO2 [Moles/Vol] 24.7 mmol/L 21.0-32.0 [facility] Creatinine [Mass/Vol] 1.03 mg/dL 0.70-1.[address] [facility] GFR/1.73 sq M.predicted MDRD (S/P/Bld) [Vol rate/Area] mL/min/{1.73_m2} >=60 [facility] Glucose [Mass/Vol] 156 mg/dL High 74-106 [facility] Potassium [Moles/Vol] 3.6 mmol/L 3.5-5.[address] [facility] Protein [Mass/Vol] 6.8 g/dL 6.4-8.2 [facility] Sodium [Moles/Vol] 138 mmol/L 136-145 [facility] Urea nitrogen [Mass/Vol] 18.0 mg/dL 7.0-18.0 [facility] Urea nitrogen/Creatinine [Mass ratio] 17.5 mg/mg [facility] Laboratory - Hematology and Cell countson 10-31-2023 Immature granulocytes/100 WBC (Bld) 0.5 % 0.0-0.5 [facility] Leukocytes [#/volume] correc adalberto for nucleated erythrocytes in Blood by Automated counon 10-31-2023 WBC corrected for nucl RBC Auto (Bld) [#/Vol] 7.3 10 3/uL 4.0-11.0 [facility] Lymphocytes Auto (Bld) [#/Vo l]on 10-31-2023 Lymphocytes (Bld) [#/Vol] 0.5 10 3/uL Low 1.2-3.8 [facility] Lymphocytes/100 WBC Auto (Bl d)on 10-31-2023 Lymphocytes/100 WBC (Bld) 6.4 % Low 20.5-60.0 [facility] MCH Auto (RBC) [Entitic mass ]on 10-31-2023 MCH (RBC) [Entitic mass] 30.5 pg 25.9-34.0 [facility] MCHC Auto (RBC) [Mass/Vol]on 10-31-2023 MCHC (RBC) [Mass/Vol] 34.6 g/dL 29.9-35.[address] [facility] MCV Auto (RBC) [Entitic vol] on 10-31-2023 MCV (RBC) [Entitic vol] 87.9 fL 80.0-94.0 [facility] Monocytes Auto (Bld) [#/Vol] on 10-31-2023 Monocytes (Bld) [#/Vol] 0.1 10 3/uL Low 0.3-0.8 [facility] Monocytes/100 WBC Auto (Bld) on 10-31-2023 Monocytes/100 WBC (Bld) 1.6 % Low 1.7-12.0 [facility] Neutrophils Auto (Bld) [#/Vo l]on 10-31-2023 Neutrophils (Bld) [#/Vol] 6.7 10 3/uL High 1.4-6.5 [facility] Neutrophils/100 WBC Auto (Bl d)on 10-31-2023 Neutrophils/100 WBC (Bld) 91.4 % High 43.0-75.0 [facility] No Panel Informationon 10-30 Eosinophils # (Auto) 0.0 10 3/uL 0.0-0.[address] [facility] Immature Granulocyte # (Auto) 0.04 10 3/uL High 0.00-0.03 [facility] Platelet mean volume Auto (B ld) [Entitic vol]on 10-31-2023 Platelet mean volume (Bld) [Entitic vol] 9.7 fL 9.5-13.5 [facility] Platelets Auto (Bld) [#/Vol] on 10-31-2023 Platelets (Bld) [#/Vol] 238 10 3/uL 150-450 [facility] RBC Auto (Bld) [#/Vol]on RBC (Bld) [#/Vol] 5.22 10 6/uL 4.70-6.10 [facility] Serum or plasma albumin/glob ulin mass ratioon 10-31-2023 Albumin/Globulin [Mass ratio] 0.8 {ratio} [facility] Serum or plasma anion gap de terminationon 10-31-2023 Anion gap [Moles/Vol] 13.9 mmol/L [facility] Basophils Auto (Bld) [#/Vol] on 10-30-2023 Basophils (Bld) [#/Vol] 0.1 10 3/uL 0.0-0.1 [facility] Basophils/100 WBC Auto (Bld) on 10-30-2023 Basophils/100 WBC (Bld) 0.6 % 0.2-2.0 [facility] Eosinophils/100 WBC Auto (Bl d)on 10-30-2023 Eosinophils/100 WBC (Bld) 0.0 % Low 0.9-7.0 [facility] Erythrocyte distribution wid th Auto (RBC) [Ratio]on 10-30-2023 Erythrocyte distribution width (RBC) [Ratio] 13.2 % 11.0-15.0 [facility] Estimated glomerular filtrat ion rate (GFR) non- Americanon 10-30-2023 GFR/1.73 sq M.predicted among non-blacks MDRD (S/P/Bld) [Vol rate/Area] mL/min/{1.73_m2} >=60 [facility] Globulin Calc (S) [Mass/Vol] on 10-30-2023 Globulin (S) [Mass/Vol] 4.3 g/dL [facility] Hematocrit Auto (Bld) [Volum e fraction]on 10-30-2023 Hematocrit (Bld) [Volume fraction] 49.6 % 42.0-54.0 [facility] Hemoglobin [Mass/volume] in Bloodon 10-30-2023 Hemoglobin (Bld) [Mass/Vol] 17.4 g/dL 14.0-18.0 [facility] Laboratory - Chemistry and C hemistry - challengeon 10-30-2023 Lactate [Moles/Vol] 2.2 mmol/L High 0.4-2.0 [facility] Comment on above: RESULTS CALLED TO Rip HarperRN)@BY Jessica Haq MLT at 2052 Albumin [Mass/Vol] 3.6 g/dL 3.4-5.0 [facility] ALP [Catalytic activity/Vol] 118 U/L High 46-116 [facility] ALT [Catalytic activity/Vol] 16 U/L 16-63 [facility] AST [Catalytic activity/Vol] 31 U/L 15-37 [facility] Bilirubin [Mass/Vol] 0.8 mg/dL 0.2-1.0 [facility] Calcium [Mass/Vol] 8.9 mg/dL 8.5-10.1 [facility] Chloride [Moles/Vol] 98 mmol/L 98-107 [facility] CO2 [Moles/Vol] 20.5 mmol/L Low 21.0-32.0 [facility] Creatinine [Mass/Vol] 1.17 mg/dL 0.70-1.[address] [facility] GFR/1.73 sq M.predicted MDRD (S/P/Bld) [Vol rate/Area] mL/min/{1.73_m2} >=60 [facility] Glucose [Mass/Vol] 229 mg/dL High 74-106 [facility] Natriuretic peptide B (Bld) [Mass/Vol] 686.0 pg/mL <=900.0 [facility] Potassium [Moles/Vol] 2.8 mmol/L Low 3.5-5.[address] [facility] Comment on above: RESULTS CALLED TO JEREMY BARROW Protein [Mass/Vol] 7.9 g/dL 6.4-8.2 [facility] Sodium [Moles/Vol] 133 mmol/L Low 136-145 [facility] Urea nitrogen [Mass/Vol] 17.0 mg/dL 7.0-18.0 [facility] Urea nitrogen/Creatinine [Mass ratio] 14.5 mg/mg [facility] Laboratory - Hematology and Cell countson 10-30-2023 Immature granulocytes/100 WBC (Bld) 0.4 % 0.0-0.5 [facility] Laboratory - Microbiology an d Antimicrobial susceptibilityon 10-30-2023 SARS-CoV-2 (COVID-19) RNA EMMY+probe Ql (Unsp spec) Negative NEGATIVE [facility] Comment on above: This test has not be en FDA cleared or approved, but has beenauthorized by the FDA under an Emergency Use Authorization(EUA) for use by authorized laboratories certified underIA that meet the requirements to perform moderate or highcomplexity testing. This test has been authorized only forthe detection of proteins from SARS-CoV-2, not for any otherviruses or pathogens. The emergency use of this test isauthorized for the duration of the declaration thatcircumstances exist justifying the authorization ofemergency use of in vitro diagnostic tests for detectionand/or diagnosis of Covid-19 under section 564(b)(1) of theAct, 21 U.S.C. 360bbb-3(b)(1), unless the declaration isterminated or authorization is revoked sooner. Leukocytes [#/volume] correc adalberto for nucleated erythrocytes in Blood by Automated counon 10-30-2023 WBC corrected for nucl RBC Auto (Bld) [#/Vol] 9.0 10 3/uL 4.0-11.0 [facility] Lymphocytes Auto (Bld) [#/Vo l]on 10-30-2023 Lymphocytes (Bld) [#/Vol] 1.3 10 3/uL 1.2-3.8 [facility] Lymphocytes/100 WBC Auto (Bl d)on 10-30-2023 Lymphocytes/100 WBC (Bld) 15.0 % Low 20.5-60.0 [facility] MCH Auto (RBC) [Entitic mass ]on 10-30-2023 MCH (RBC) [Entitic mass] 30.0 pg 25.9-34.0 [facility] MCHC Auto (RBC) [Mass/Vol]on 10-30-2023 MCHC (RBC) [Mass/Vol] 35.1 g/dL 29.9-35.[address] [facility] MCV Auto (RBC) [Entitic vol] on 10-30-2023 MCV (RBC) [Entitic vol] 85.5 fL 80.0-94.0 [facility] Monocytes Auto (Bld) [#/Vol] on 10-30-2023 Monocytes (Bld) [#/Vol] 0.5 10 3/uL 0.3-0.8 [facility] Monocytes/100 WBC Auto (Bld) on 10-30-2023 Monocytes/100 WBC (Bld) 5.4 % 1.7-12.0 [facility] Neutrophils Auto (Bld) [#/Vo l]on 10-30-2023 Neutrophils (Bld) [#/Vol] 7.0 10 3/uL High 1.4-6.5 [facility] Neutrophils/100 WBC Auto (Bl d)on 10-30-2023 Neutrophils/100 WBC (Bld) 78.6 % High 43.0-75.0 [facility] No Panel InformationOrdered By: Nilam Farley on 10-30-2023 Blood Culture 2 [facility] Blood Culture 1 [facility] No Panel Informationon 10-29 Venous Blood Partial Pressure CO2 25.6 mm[Hg] Low 40.0-52.0 [facility] Venous Blood pH 7.482 High 7.330-7.430 [facility] Eosinophils # (Auto) 0.0 10 3/uL 0.0-0.[address] [facility] Immature Granulocyte # (Auto) 0.04 10 3/uL High 0.00-0.03 [facility] Troponin I High Sensitivity 61.8 pg/mL 4.0-76.1 [facility] Comment on above: CUT-OFF POINTS HAVE BEEN ESTABLISHED BASED ON THE FOURTHUNIVERSAL DEFINITION OF MYOCARDIAL INFARCTION. THE UPPERREFERENCE LIMIT (URL) OF TROPONIN, DEFINED THE 99THPERCENTILE OF cTnI DISTRIBUTION IN A REFERENCE POPULATION,HAS BEEN CONFIRMED THE DECISION THRESHOLD FOR MIDIAGNOSIS.99TH PERCENTILE = 76.2 PG/MLNOTE: HIGH-SENSITIVITY TROPONIN ASSAY IS NOT INTENDED TO BEUSED IN ISOLATION BUT SHOULD BE INTERPRETED IN CONJUNCTIONWITH OTHER DIAGNOSTIC AND CLINICAL INFORMATION. Platelet mean volume Auto (B ld) [Entitic vol]on 10-30-2023 Platelet mean volume (Bld) [Entitic vol] 9.9 fL 9.5-13.5 [facility] Platelets Auto (Bld) [#/Vol] on 10-30-2023 Platelets (Bld) [#/Vol] 253 10 3/uL 150-450 [facility] RBC Auto (Bld) [#/Vol]on RBC (Bld) [#/Vol] 5.80 10 6/uL 4.70-6.10 [facility] Serum or plasma albumin/glob ulin mass ratioon 10-30-2023 Albumin/Globulin [Mass ratio] 0.8 {ratio} [facility] Serum or plasma anion gap de terminationon 10-30-2023 Anion gap [Moles/Vol] 17.3 mmol/L [facility] Serum procalcitonin measurem enton 10-30-2023 Procalcitonin [Mass/Vol] ng/mL 0.00-0.50 [facility] Basophils Auto (Bld) [#/Vol] on 10-26-2023 Basophils (Bld) [#/Vol] 0.1 10 3/uL 0.0-0.1 [facility] Basophils/100 WBC Auto (Bld) on 10-26-2023 Basophils/100 WBC (Bld) 1.0 % 0.2-2.0 [facility] Eosinophils/100 WBC Auto (Bl d)on 10-26-2023 Eosinophils/100 WBC (Bld) 0.1 % Low 0.9-7.0 [facility] Erythrocyte distribution wid th Auto (RBC) [Ratio]on 10-26-2023 Erythrocyte distribution width (RBC) [Ratio] 13.7 % 11.0-15.0 [facility] Estimated glomerular filtrat ion rate (GFR) non- Americanon 10-26-2023 GFR/1.73 sq M.predicted among non-blacks MDRD (S/P/Bld) [Vol rate/Area] 55 mL/min/{1.73_m2} Low >=60 [facility] Globulin Calc (S) [Mass/Vol] on 10-26-2023 Globulin (S) [Mass/Vol] 4.8 g/dL [facility] Hematocrit Auto (Bld) [Volum e fraction]on 10-26-2023 Hematocrit (Bld) [Volume fraction] 51.8 % 42.0-54.0 [facility] Hemoglobin [Mass/volume] in Bloodon 10-26-2023 Hemoglobin (Bld) [Mass/Vol] 17.5 g/dL 14.0-18.0 [facility] Laboratory - Chemistry and C hemistry - challengeon 10-26-2023 Albumin [Mass/Vol] 3.9 g/dL 3.4-5.0 [facility] ALP [Catalytic activity/Vol] 140 U/L High 46-116 [facility] ALT [Catalytic activity/Vol] 17 U/L 16-63 [facility] AST [Catalytic activity/Vol] 19 U/L 15-37 [facility] Bilirubin [Mass/Vol] 0.7 mg/dL 0.2-1.0 [facility] Calcium [Mass/Vol] 9.0 mg/dL 8.5-10.1 [facility] Chloride [Moles/Vol] 100 mmol/L 98-107 [facility] CO2 [Moles/Vol] 22.3 mmol/L 21.0-32.0 [facility] Creatinine [Mass/Vol] 1.31 mg/dL High 0.70-1.[address] [facility] GFR/1.73 sq M.predicted MDRD (S/P/Bld) [Vol rate/Area] mL/min/{1.73_m2} >=60 [facility] Glucose [Mass/Vol] 192 mg/dL High 74-106 [facility] Natriuretic peptide B (Bld) [Mass/Vol] 273.0 pg/mL <=900.0 [facility] Potassium [Moles/Vol] 3.1 mmol/L Low 3.5-5.[address] [facility] Protein [Mass/Vol] 8.7 g/dL High 6.4-8.2 [facility] Sodium [Moles/Vol] 136 mmol/L 136-145 [facility] Urea nitrogen [Mass/Vol] 24.0 mg/dL High 7.0-18.0 [facility] Urea nitrogen/Creatinine [Mass ratio] 18.3 mg/mg [facility] Laboratory - Hematology and Cell countson 10-26-2023 Immature granulocytes/100 WBC (Bld) 0.2 % 0.0-0.5 [facility] Leukocytes [#/volume] correc adalberto for nucleated erythrocytes in Blood by Automated counon 10-26-2023 WBC corrected for nucl RBC Auto (Bld) [#/Vol] 8.1 10 3/uL 4.0-11.0 [facility] Lymphocytes Auto (Bld) [#/Vo l]on 10-26-2023 Lymphocytes (Bld) [#/Vol] 1.2 10 3/uL 1.2-3.8 [facility] Lymphocytes/100 WBC Auto (Bl d)on 10-26-2023 Lymphocytes/100 WBC (Bld) 14.4 % Low 20.5-60.0 [facility] MCH Auto (RBC) [Entitic mass ]on 10-26-2023 MCH (RBC) [Entitic mass] 30.0 pg 25.9-34.0 [facility] MCHC Auto (RBC) [Mass/Vol]on 10-26-2023 MCHC (RBC) [Mass/Vol] 33.8 g/dL 29.9-35.[address] [facility] MCV Auto (RBC) [Entitic vol] on 10-26-2023 MCV (RBC) [Entitic vol] 88.9 fL 80.0-94.0 [facility] Monocytes Auto (Bld) [#/Vol] on 10-26-2023 Monocytes (Bld) [#/Vol] 0.4 10 3/uL 0.3-0.8 [facility] Monocytes/100 WBC Auto (Bld) on 10-26-2023 Monocytes/100 WBC (Bld) 4.5 % 1.7-12.0 [facility] Neutrophils Auto (Bld) [#/Vo l]on 10-26-2023 Neutrophils (Bld) [#/Vol] 6.5 10 3/uL 1.4-6.5 [facility] Neutrophils/100 WBC Auto (Bl d)on 10-26-2023 Neutrophils/100 WBC (Bld) 79.8 % High 43.0-75.0 [facility] No Panel Informationon 10-25 Eosinophils # (Auto) 0.0 10 3/uL 0.0-0.[address] [facility] Immature Granulocyte # (Auto) 0.02 10 3/uL 0.00-0.03 [facility] Troponin I High Sensitivity 59.2 pg/mL 4.0-76.1 [facility] Comment on above: CUT-OFF POINTS HAVE BEEN ESTABLISHED BASED ON THE FOURTHUNIVERSAL DEFINITION OF MYOCARDIAL INFARCTION. THE UPPERREFERENCE LIMIT (URL) OF TROPONIN, DEFINED THE 99THPERCENTILE OF cTnI DISTRIBUTION IN A REFERENCE POPULATION,HAS BEEN CONFIRMED THE DECISION THRESHOLD FOR MIDIAGNOSIS.99TH PERCENTILE = 76.2 PG/MLNOTE: HIGH-SENSITIVITY TROPONIN ASSAY IS NOT INTENDED TO BEUSED IN ISOLATION BUT SHOULD BE INTERPRETED IN CONJUNCTIONWITH OTHER DIAGNOSTIC AND CLINICAL INFORMATION. Platelet mean volume Auto (B ld) [Entitic vol]on 10-26-2023 Platelet mean volume (Bld) [Entitic vol] 10.0 fL 9.5-13.5 [facility] Platelets Auto (Bld) [#/Vol] on 10-26-2023 Platelets (Bld) [#/Vol] 227 10 3/uL 150-450 [facility] RBC Auto (Bld) [#/Vol]on RBC (Bld) [#/Vol] 5.83 10 6/uL 4.70-6.10 [facility] Serum or plasma albumin/glob ulin mass ratioon 10-26-2023 Albumin/Globulin [Mass ratio] 0.8 {ratio} [facility] Serum or plasma anion gap de terminationon 10-26-2023 Anion gap [Moles/Vol] 16.8 mmol/L [facility] CT cervical spine wo conon 0 10-17-2023 CT cervical spine wo con [facility] [place] [place] [address] CT Scan Report Signed Patient: Velia Bagley MR#: [id number] 67 : 1960 Acct:[id number] Age/Sex: 63 / M ADM Date: 10/16/23 Loc: ER Room: Type: [facility] ER Attending Dr: Copies to: Karthik Mcknight DO Ordering Provider: Karthik Mcknight DO Date of Service: 10/16/23 CT/CT cervical spine wo con: fall CT Cervical Spine withoutcontrast TECHNIQUE: Axial imaging with 2-D and 3-D reconstruction. The CT exam was performed using one or more the following dose reduction techniques: Automated exposure control, adjustment of the MA and/or Kv according to patient size, or use of the iterative reconstruction technique. COMPARISON: None HISTORY: Fell. Head injury. POST SURGERY CHANGES: None BONY ALIGNMENT: Adequate BONY SPINAL CANAL: Patent central bony canal FRACTURE: None BONY LESIONS: None SOFT TISSUES: Unremarkable DEGENERATIVE CHANGES: Mild LUNG APICES: Unremarkable ADDITIONAL FINDINGS: CT/CT cervical spine wo con IMPRESSION: No acute process Impression dictated by: Jayant Gonzalez M.D.10/17/2023 7:33 AM Dictation Location: [place] [address] Transcribed By: [facility] 10/17/23 0733 Dictated By: Jayant Gonzalez DO 10/17/23 0732 Signed By: 10/17/23 0733 Normal [facility] CT head/brain wo conon 10-16 CT head/brain wo con [facility] [place] [address] [place] [address] CT Scan Report Signed Patient: Velia Bagley MR#: [id number] 67 : 1960 Acct:[id number] Age/Sex: 63 / M ADM Date: 10/16/23 Loc: ER Room: Type: [facility] ER Attending Dr: Copies to: Karthik Mcknight DO Ordering Provider: Karthik Mcknight DO Date of Service: 10/16/23 CT/CT head/brain wo con: fall, hit head Unenhanced head CT TECHNIQUE: Contiguous axial imaging of the head. The CT exam was performed using one or more the following dose reduction techniques: Automated exposure control, adjustment of the MA and/or Kv according to patient size, or use of the iterative reconstruction technique. COMPARISON: 08/20/22 HISTORY: Fell yesterday. Head injury. VENTRICLES: Within normal limits ATROPHY: None BRAIN PARENCHYMA: Adequate virgen-white matter differentiation identified. HEMORRHAGE: None HERNIATION: No mass effect or herniation INFARCTION: No recent vascular distribution infarction is seen. EXTRA-AXIAL FLUID COLLECTIONS None MIDBRAIN: Unremarkable RONAN: Unremarkable MEDULLA: Unremarkable SINUSES: Unremarkable ORBITS: Grossly unremarkable MASTOIDS: Unremarkable BONY STRUCTURES Intact ADDITIONAL FINDINGS: CT/CT head/brain wo con IMPRESSION: No acute findings. Impression dictated by: Jayant Gonzalez M.D.10/17/2023 7:32 AM Dictation Location: [employer] Transcribed By: [facility] 10/17/23 0732 Dictated By: Jayant Gonzalez DO 10/17/23 0730 Signed By: 10/17/23 0732 Normal [facility] Physician [facility] CT lumbar spine wo conon CT lumbar spine wo con [facility] [place] [place] [address] CT Scan Report Signed Patient: Velia Bagley MR#: [id number] 67 : 1960 Acct:[id number] Age/Sex: 63 / M ADM Date: 10/16/23 Loc: ER Room: Type: [facility] ER Attending Dr: Copies to: Karthik Mcknight DO Ordering Provider: Karthik Mcknight DO Date of Service: 10/16/23 CT/CT lumbar spine wo con: fall, low back pain CT LUMBAR SPINE WITHOUT CONTRAST TECHNIQUE: Axial acquisition of the lumbar spine obtained with the sagittal and coronal reconstructed imaging.The CT exam was performed using one or more the following dose reduction techniques: Automated exposure control, adjustment of the MA and/or Kv according to patient size, or use of the iterative reconstruction technique. HISTORY: Fell. Head injury. COMPARISON: None FINDINGS: The last fully segmented vertebral pair is operationally defined as L5/S1. POST SURGERY CHANGES: None BONY ALIGNMENT: Mild scoliosis. Mild degenerative listhesis. SPINAL CANAL:Patent bony central canal LUMBAR FRACTURE: None BONY LESIONS: None KIDNEYS: No hydronephrosis is identified. AORTA: No aortic aneurysm is seen. Lower thoracic level: Unremarkable Kqnu-cf-[id number] multilevel degeneration. Bilateral L5 pars defects. Assessment of disc herniation limited with CT examination. No obvious disc herniation seen with CT exam. CT/CT lumbar spine wo con IMPRESSION:No acute fracture. Impression dictated by: Jayant Gonzalez M.D.10/17/2023 7:36 AM Dictation Location: [employer] Transcribed By: [facility] 10/17/23 0736 Dictated By: Jayant Gonzalez DO 10/17/23 0735 Signed By: 10/17/23 0736 Normal [facility] CT thoracic spine wo conon 0 10-17-2023 CT thoracic spine wo con [facility] Main [address] [address] [address] Scan Report Signed Patient: Velia Bagley MR#: [id number] 67 : 1960 Acct:[id number] Age/Sex: 63 / M ADM Date: 10/16/23 Loc: ER Room: Type: [facility] ER Attending Dr: Copies to: Karthik Mcknight DO Ordering Provider: Karthik Mcknight DO Date of Service: 10/16/23 CT/CT thoracic spine wo con: fall, back pain CT THORACIC SPINE WITHOUT CONTRAST TECHNIQUE: The CT exam was performed using one or more the following dose reduction techniques: Automated exposure control, adjustment of the MA and/or Kv according to patient size, or use of the iterative reconstruction technique. HISTORY: Fell. Head injury. COMPARISON: None POST SURGERY CHANGES: None BONY ALIGNMENT: Adequate BONY SPINAL CANAL: Patent central bony canal FRACTURE: None BONY LESIONS: None SOFT TISSUES: Unremarkable DEGENERATIVE CHANGES: Mild Mild interstitial lung changes likely chronic. Minimal basal pleural reactions. The visualized aorta is unremarkable. No obstructive uropathy identified. CT/CT thoracic spine wo con IMPRESSION: NO ACUTE BONY PROCESS. Impression dictated by: Jayant Gonzalez M.D.10/17/2023 7:35 AM Dictation Location: [place] [address] Transcribed By: [facility] 10/17/23 0735 Dictated By: Jayant Gonzalez DO 10/17/23 0733 Signed By: 10/17/23 0735 Normal [facility] ECG 12 lead ECGon 10-16-2023 ECG 12 lead ECG [facility] Main [address] [address] Electrocardiograph Report Signed Patient: Velia Bagley MR#: [id number] 67 : 1960 Acct:[id number] Age/Sex: 63 / M ADM Date: 10/16/23 Loc: ER Room: Type: [facility] ER Attending Dr: Ordering Provider: Karthik Mcknight DO Date of Service: 10/16/23 ECG/ECG 12 lead ECG: Fall Copies to: Test Reason : Blood Pressure : 153/080 mmHG Vent. Rate : 071 BPM Atrial Rate : 071 BPM P-R Int : 148 ms QRS Dur : 088 ms QT Int : 370 ms P-R-T Axes : 041 -06 006 degrees QTc Int : 402 ms Normal sinus rhythm Voltage criteria for left ventricular hypertrophy Confirmed by Karthik Dykes DO ([id number]) on 10/17/2023 6:48:24 AM Referred By: Electronically Signed By:Karthik Dykes DO Transcribed By: [facility] Signed By Karthik Dykes DO [id number] Normal [facility] Head/Face/Jaw Botulinum Inje ctionon 10-12-2023 Jodie Matthews MD 10/12/2023 4:53 PM Head/Face/Jaw Botulinum Injection Date/Time: 10/12/2023 4:52 PM Performed by: Jodie Matthews MD Authorized by: Jodie Matthews MD Consent: Consent obtained: Verbal Consent given by: Patient Procedure details: EMG used? No Electrical stimulation used? No Diluted by: Preservative free saline Toxin (Brand): OnaBoNT-A (Botox) Total units available: 200 Ad hoc region [...] Please call if you have difficulty swallowing. You received Toradol today for your severe headache. We are going to continue with 5 day of pills starting tomorrow to break your headache cycle. Take 1 pill with breakfast lunch dinner and bedtime for 5 days. Take with food. Try not to take your triptan or antiinflammatory during this time. If you have any nausea or diarrhea with the medicine stop and call on the next business day. [facility] Work Phone: [facility] Work Phone: Laboratory - Chemistry and C hemistry - challengeon 09-15-2023 Free T4 [Mass/Vol] 0.96 ng/dL 0.76-1.46 [facility] TSH Qn 1.494 m[IU]/L 0.358-3.740 [facility] Laboratory - Hematology and Cell countson 09-15-2023 ESR (Bld) [Velocity] 11 mm/h <=20 [facility] No Panel Informationon 09-14 C-Reactive Protein, Quantitative <0.50 mg/dL <=0.50 [facility] Serum nuclear antibody titer on 09-15-2023 Nuclear Ab (S) [Titer] Negative . [facility] Comment on above: Negative <1:80 Borde rline 1:80 Positive >1:80ICAP nomenclature: AC-0For more information about Hep-2 cell patterns useANApatterns.org, the official website for theInternational Consensus on Antinuclear Antibody (MIRNA)Patterns (ICAP).Performed at: - [facility] [id number] Director: Wilfredo Lee PhD, Phone: [phone] Basophils Auto (Bld) [#/Vol] on 09-14-2023 Basophils (Bld) [#/Vol] 0.0 10 3/uL 0.0-0.1 [facility] Basophils/100 WBC Auto (Bld) on 09-14-2023 Basophils/100 WBC (Bld) 0.4 % 0.2-2.0 [facility] Eosinophils/100 WBC Auto (Bl d)on 09-14-2023 Eosinophils/100 WBC (Bld) 0.0 % Low 0.9-7.0 [facility] Erythrocyte distribution wid th Auto (RBC) [Ratio]on 09-14-2023 Erythrocyte distribution width (RBC) [Ratio] 13.2 % 11.0-15.0 [facility] Estimated glomerular filtrat ion rate (GFR) non- Americanon 09-14-2023 GFR/1.73 sq M.predicted among non-blacks MDRD (S/P/Bld) [Vol rate/Area] mL/min/{1.73_m2} >=60 [facility] Hematocrit Auto (Bld) [Volum e fraction]on 09-14-2023 Hematocrit (Bld) [Volume fraction] 45.0 % 42.0-54.0 [facility] Hemoglobin [Mass/volume] in Bloodon 09-14-2023 Hemoglobin (Bld) [Mass/Vol] 14.6 g/dL 14.0-18.0 [facility] Laboratory - Chemistry and C hemistry - challengeon 09-14-2023 Calcium [Mass/Vol] 8.6 mg/dL 8.5-10.1 [facility] Chloride [Moles/Vol] 104 mmol/L 98-107 [facility] CO2 [Moles/Vol] 20.6 mmol/L Low 21.0-32.0 [facility] Creatinine [Mass/Vol] 1.18 mg/dL 0.70-1.[address] [facility] GFR/1.73 sq M.predicted MDRD (S/P/Bld) [Vol rate/Area] mL/min/{1.73_m2} >=60 [facility] Glucose [Mass/Vol] 95 mg/dL 74-106 [facility] Potassium [Moles/Vol] 4.0 mmol/L 3.5-5.[address] [facility] Sodium [Moles/Vol] 133 mmol/L Low 136-145 [facility] Urea nitrogen [Mass/Vol] 25.0 mg/dL High 7.0-18.0 [facility] Urea nitrogen/Creatinine [Mass ratio] 21.2 mg/mg [facility] Laboratory - Hematology and Cell countson 09-14-2023 Immature granulocytes/100 WBC (Bld) 0.4 % 0.0-0.5 [facility] Leukocytes [#/volume] correc adalberto for nucleated erythrocytes in Blood by Automated counon 09-14-2023 WBC corrected for nucl RBC Auto (Bld) [#/Vol] 5.7 10 3/uL 4.0-11.0 [facility] Lymphocytes Auto (Bld) [#/Vo l]on 09-14-2023 Lymphocytes (Bld) [#/Vol] 1.8 10 3/uL 1.2-3.8 [facility] Lymphocytes/100 WBC Auto (Bl d)on 09-14-2023 Lymphocytes/100 WBC (Bld) 31.6 % 20.5-60.0 [facility] MCH Auto (RBC) [Entitic mass ]on 09-14-2023 MCH (RBC) [Entitic mass] 30.6 pg 25.9-34.0 [facility] MCHC Auto (RBC) [Mass/Vol]on 09-14-2023 MCHC (RBC) [Mass/Vol] 32.4 g/dL 29.9-35.[address] [facility] MCV Auto (RBC) [Entitic vol] on 09-14-2023 MCV (RBC) [Entitic vol] 94.3 fL High 80.0-94.0 [facility] Monocytes Auto (Bld) [#/Vol] on 09-14-2023 Monocytes (Bld) [#/Vol] 0.4 10 3/uL 0.3-0.8 [facility] Monocytes/100 WBC Auto (Bld) on 09-14-2023 Monocytes/100 WBC (Bld) 7.2 % 1.7-12.0 [facility] Neutrophils Auto (Bld) [#/Vo l]on 09-14-2023 Neutrophils (Bld) [#/Vol] 3.4 10 3/uL 1.4-6.5 [facility] Neutrophils/100 WBC Auto (Bl d)on 09-14-2023 Neutrophils/100 WBC (Bld) 60.4 % 43.0-75.0 [facility] No Panel Informationon 09-13 Eosinophils # (Auto) 0.0 10 3/uL 0.0-0.[address] [facility] Immature Granulocyte # (Auto) 0.02 10 3/uL 0.00-0.03 [facility] Platelet mean volume Auto (B ld) [Entitic vol]on 09-14-2023 Platelet mean volume (Bld) [Entitic vol] 9.4 fL Low 9.5-13.5 [facility] Platelets Auto (Bld) [#/Vol] on 09-14-2023 Platelets (Bld) [#/Vol] 207 10 3/uL 150-450 [facility] RBC Auto (Bld) [#/Vol]on RBC (Bld) [#/Vol] 4.77 10 6/uL 4.70-6.10 [facility] Serum or plasma anion gap de terminationon 09-14-2023 Anion gap [Moles/Vol] 12.4 mmol/L [facility] Basophils Auto (Bld) [#/Vol] Ordered By: Melissa Wilson on 09-01-2023 Basophils (Bld) [#/Vol] 0.0 10*3/uL 0.0-0.2 [facility] Basophils/100 WBC Auto (Bld) Ordered By: Melissa Wilson on 09-01-2023 Basophils/100 WBC (Bld) 0.3 % . [facility] Eosinophils Auto (Bld) [#/Vo l]Ordered By: Melissa Wilson on 09-01-2023 Eosinophils (Bld) [#/Vol] 0.0 10*3/uL 0.0-0.45 [facility] Eosinophils/100 WBC Auto (Bl d)Ordered By: Melissa Wilson on 09-01-2023 Eosinophils/100 WBC (Bld) 0.0 % . [facility] Erythrocyte distribution wid th Auto (RBC) [Ratio]Ordered By: Melissa Wilson on 09-01-2023 Erythrocyte distribution width (RBC) [Ratio] 13.7 % 12.0-14.8 [facility] Ferritin [Mass/volume] in Se rum or PlasmaOrdered By: Melissa Wilson on 09-01-2023 Ferritin [Mass/Vol] 39.7 ng/mL 23.9-336.2 [facility] Folate [Mass/volume] in Seru m or PlasmaOrdered By: Melissa Wilson on 09-01-2023 Folate [Mass/Vol] 10.7 ng/mL >5.9 [facility] Comment on above: Folate reference ran ge: >5.9 ng/mlThe WHO technical consultation on folate and vitamin [id number] has determined that folate concentrations lessthan 4 ng/ml are considered deficient. Folate [Mass/Vol] Folate [Mass/volume] in Serum or Plasma >5.9 [facility] Comment on above: Folate reference ran ge: >5.9 ng/mlThe WHO technical consultation on folate and vitamin [id number] has determined that folate concentrations lessthan 4 ng/ml are considered deficient. Hematocrit Auto (Bld) [Volum e fraction]Ordered By: Melissa Wilson on 09-01-2023 Hematocrit (Bld) [Volume fraction] 42.7 % 38.8-50.0 [facility] Hemoglobin [Mass/volume] in BloodOrdered By: Melissa Wilson on 09-01-2023 Hemoglobin (Bld) [Mass/Vol] 14.2 g/dL 13.0-17.0 [facility] Iron [Mass/volume] in Serum or PlasmaOrdered By: Melissa Wilson on 09-01-2023 Iron [Mass/Vol] 166 ug/dL 50-212 [facility] Iron binding capacity [Mass/ volume] in Serum or PlasmaOrdered By: Melissa Wilson on 09-01-2023 Iron binding capacity [Mass/Vol] 312 ug/dL 255-450 [facility] Iron saturation [Mass Fracti on] in Serum or PlasmaOrdered By: Melissa Wilson on 09-01-2023 Iron saturation [Mass fraction] 53.2 % High 20-50 [facility] Leukocytes [#/volume] correc adalberto for nucleated erythrocytes in Blood by Automated counOrdered By: Melissa Wilson on 09-01-2023 WBC corrected for nucl RBC Auto (Bld) [#/Vol] 6.4 10*3/uL 4.1-10.5 [facility] Lymphocytes Auto (Bld) [#/Vo l]Ordered By: Melissa Wilson on 09-01-2023 Lymphocytes (Bld) [#/Vol] 1.7 10*3/uL 1.00-4.8 [facility] Lymphocytes/100 WBC Auto (Bl d)Ordered By: Melissa Wilson on 09-01-2023 Lymphocytes/100 WBC (Bld) 27.0 % . [facility] MCH Auto (RBC) [Entitic mass ]Ordered By: Melissa Wilson on 09-01-2023 MCH (RBC) [Entitic mass] 31.2 pg 27.5-35.2 [facility] MCHC Auto (RBC) [Mass/Vol]Or dered By: Melissa Wilson on 09-01-2023 MCHC (RBC) [Mass/Vol] 33.4 g/dL 32.5-35.[address] [facility] MCV Auto (RBC) [Entitic vol] Ordered By: Melissa Wilson on 09-01-2023 MCV (RBC) [Entitic vol] 93.4 fL 83.5-101 [facility] Monocytes Auto (Bld) [#/Vol] Ordered By: Melissa Wilson on 09-01-2023 Monocytes (Bld) [#/Vol] 0.4 10*3/uL 0.0-0.8 [facility] Monocytes/100 WBC Auto (Bld) Ordered By: Melissa Wilson on 09-01-2023 Monocytes/100 WBC (Bld) 5.6 % . [facility] Neutrophils Auto (Bld) [#/Vo l]Ordered By: Melissa Wilson on 09-01-2023 Neutrophils (Bld) [#/Vol] 4.3 10*3/uL 1.8-7.7 [facility] Neutrophils/100 WBC Auto (Bl d)Ordered By: Melissa Wilson on 09-01-2023 Neutrophils/100 WBC (Bld) 67.1 % . [facility] Nucleated erythrocytes [Pres ence] in Blood by Automated countOrdered By: Melissa Wilson on 09-01-2023 Nucleated RBC Auto Ql (Bld) 0.1 /100{WBC} 0-0.5 [facility] Platelet mean volume Auto (B ld) [Entitic vol]Ordered By: Melissa Wilson on 09-01-2023 Platelet mean volume (Bld) [Entitic vol] 7.5 fL 6.6-10.1 [facility] Platelets Auto (Bld) [#/Vol] Ordered By: Melissa Wilson on 09-01-2023 Platelets (Bld) [#/Vol] 172 10*3/uL 150-450 [facility] RBC Auto (Bld) [#/Vol]Ordere d By: Melissa Wilson on 09-01-2023 RBC (Bld) [#/Vol] 4.57 10*6/uL 3.90-5.60 [facility] Transferrin [Mass/volume] in Serum or PlasmaOrdered By: Melissa Steve on 09-01-2023 Transferrin [Mass/Vol] 223 mg/dL 203-362 [facility] Vitamin B12 ser/plasOrdered By: Melissa Steve on 09-01-2023 Cobalamin (Vitamin B12) [Mass/Vol] 580 pg/mL 180-914 [facility] Cobalamin (Vitamin B12) [Mass/Vol] Vitamin B12 ser/plas 180-914 [facility] WBC Auto (Bld) [#/Vol]Ordere d By: Melissa Steve on 09-01-2023 WBC (Bld) [#/Vol] 6.4 10*3/uL 4.1-10.5 [facility] No Panel Informationon 08-27 Prostate Specific Antigen Total 2.57 ng/mL <=4.00 [facility] Estimated glomerular filtrat ion rate (GFR) non- Americanon 08-20-2023 GFR/1.73 sq M.predicted among non-blacks MDRD (S/P/Bld) [Vol rate/Area] mL/min/{1.73_m2} >=60 [facility] Globulin Calc (S) [Mass/Vol] on 08-20-2023 Globulin (S) [Mass/Vol] 3.3 g/dL [facility] IgG [Mass/volume] in Serum o r Plasmaon 08-20-2023 IgG [Mass/Vol] 1123 mg/dL 603-1613 [facility] Comment on above: Performed at: [address] [id number] Director: Wilfredo Lee PhD, Phone: [phone] Laboratory - Chemistry and C hemistry - challengeon 08-20-2023 Albumin [Mass/Vol] 3.6 g/dL 3.4-5.0 [facility] ALP [Catalytic activity/Vol] 111 U/L 46-116 [facility] ALT [Catalytic activity/Vol] 8 U/L Low 16-63 [facility] AST [Catalytic activity/Vol] 8 U/L Low 15-37 [facility] Bilirubin [Mass/Vol] 0.3 mg/dL 0.2-1.0 [facility] Calcium [Mass/Vol] 8.8 mg/dL 8.5-10.1 [facility] Chloride [Moles/Vol] 107 mmol/L 98-107 [facility] CO2 [Moles/Vol] 20.8 mmol/L Low 21.0-32.0 [facility] Creatinine [Mass/Vol] 1.12 mg/dL 0.70-1.[address] [facility] GFR/1.73 sq M.predicted MDRD (S/P/Bld) [Vol rate/Area] mL/min/{1.73_m2} >=60 [facility] Glucose [Mass/Vol] 97 mg/dL 74-106 [facility] Potassium [Moles/Vol] 3.7 mmol/L 3.5-5.[address] [facility] Protein [Mass/Vol] 6.9 g/dL 6.4-8.2 [facility] Sodium [Moles/Vol] 139 mmol/L 136-145 [facility] Urea nitrogen [Mass/Vol] 23.0 mg/dL High 7.0-18.0 [facility] Urea nitrogen/Creatinine [Mass ratio] 20.5 mg/mg [facility] Serum or plasma albumin/glob ulin mass ratioon 08-20-2023 Albumin/Globulin [Mass ratio] 1.1 {ratio} [facility] Serum or plasma anion gap de terminationon 08-20-2023 Anion gap [Moles/Vol] 14.9 mmol/L [facility] Basophils Auto (Bld) [#/Vol] on 07-28-2023 Basophils (Bld) [#/Vol] 0.0 10 3/uL 0.0-0.1 [facility] Basophils/100 WBC Auto (Bld) on 07-28-2023 Basophils/100 WBC (Bld) 0.3 % 0.2-2.0 [facility] Eosinophils/100 WBC Auto (Bl d)on 07-28-2023 Eosinophils/100 WBC (Bld) 0.2 % 0.9-7.0 [facility] Erythrocyte distribution wid th Auto (RBC) [Ratio]on 07-28-2023 Erythrocyte distribution width (RBC) [Ratio] 13.6 % 11.0-15.0 [facility] Estimated glomerular filtrat ion rate (GFR) non- Americanon 07-28-2023 GFR/1.73 sq M.predicted among non-blacks MDRD (S/P/Bld) [Vol rate/Area] mL/min/{1.73_m2} >=60 [facility] Hematocrit Auto (Bld) [Volum e fraction]on 07-28-2023 Hematocrit (Bld) [Volume fraction] 43.5 % 42.0-54.0 [facility] Hemoglobin [Mass/volume] in Bloodon 07-28-2023 Hemoglobin (Bld) [Mass/Vol] 14.3 g/dL 14.0-18.0 [facility] Laboratory - Chemistry and C hemistry - challengeon 07-28-2023 Calcium [Mass/Vol] 8.4 mg/dL 8.5-10.1 [facility] Chloride [Moles/Vol] 103 mmol/L 98-107 [facility] CO2 [Moles/Vol] 24.8 mmol/L 21.0-32.0 [facility] Creatinine [Mass/Vol] 1.11 mg/dL 0.70-1.[address] [facility] GFR/1.73 sq M.predicted MDRD (S/P/Bld) [Vol rate/Area] mL/min/{1.73_m2} >=60 [facility] Glucose [Mass/Vol] 79 mg/dL 74-106 [facility] Potassium [Moles/Vol] 3.8 mmol/L 3.5-5.[address] [facility] Sodium [Moles/Vol] 136 mmol/L 136-145 [facility] Urea nitrogen [Mass/Vol] 20.0 mg/dL 7.0-18.0 [facility] Urea nitrogen/Creatinine [Mass ratio] 18.0 mg/mg [facility] Laboratory - Hematology and Cell countson 07-28-2023 Immature granulocytes/100 WBC (Bld) 0.5 % 0.0-0.5 [facility] Leukocytes [#/volume] correc adalberto for nucleated erythrocytes in Blood by Automated counon 07-28-2023 WBC corrected for nucl RBC Auto (Bld) [#/Vol] 6.6 10 3/uL 4.0-11.0 [facility] Lymphocytes Auto (Bld) [#/Vo l]on 07-28-2023 Lymphocytes (Bld) [#/Vol] 1.7 10 3/uL 1.2-3.8 [facility] Lymphocytes/100 WBC Auto (Bl d)on 07-28-2023 Lymphocytes/100 WBC (Bld) 26.1 % 20.5-60.0 [facility] MCH Auto (RBC) [Entitic mass ]on 07-28-2023 MCH (RBC) [Entitic mass] 30.8 pg 25.9-34.0 [facility] MCHC Auto (RBC) [Mass/Vol]on 07-28-2023 MCHC (RBC) [Mass/Vol] 32.9 g/dL 29.9-35.[address] [facility] MCV Auto (RBC) [Entitic vol] on 07-28-2023 MCV (RBC) [Entitic vol] 93.5 fL 80.0-94.0 [facility] Monocytes Auto (Bld) [#/Vol] on 07-28-2023 Monocytes (Bld) [#/Vol] 0.5 10 3/uL 0.3-0.8 [facility] Monocytes/100 WBC Auto (Bld) on 07-28-2023 Monocytes/100 WBC (Bld) 6.8 % 1.7-12.0 [facility] Neutrophils Auto (Bld) [#/Vo l]on 07-28-2023 Neutrophils (Bld) [#/Vol] 4.4 10 3/uL 1.4-6.5 [facility] Neutrophils/100 WBC Auto (Bl d)on 07-28-2023 Neutrophils/100 WBC (Bld) 66.1 % 43.0-75.0 [facility] No Panel Informationon 07-27 Eosinophils # (Auto) 0.0 10 3/uL 0.0-0.[address] [facility] Immature Granulocyte # (Auto) 0.03 10 3/uL 0.00-0.03 [facility] Platelet mean volume Auto (B ld) [Entitic vol]on 07-28-2023 Platelet mean volume (Bld) [Entitic vol] 9.8 fL 9.5-13.5 [facility] Platelets Auto (Bld) [#/Vol] on 07-28-2023 Platelets (Bld) [#/Vol] 189 10 3/uL 150-450 [facility] RBC Auto (Bld) [#/Vol]on RBC (Bld) [#/Vol] 4.65 10 6/uL 4.70-6.10 [facility] Serum or plasma anion gap de terminationon 07-28-2023 Anion gap [Moles/Vol] 12.0 mmol/L [facility] Head/Face/Jaw Botulinum Inje ctionon 07-15-2023 Jodie Matthews MD 07/20/2023 1:18 PM Head/Face/Jaw Botulinum Injection Date/Time: 07/15/2023 1:17 PM Performed by: Jodie Matthews MD Authorized by: Jodie Matthews MD Consent: Consent obtained: Verbal Consent given by: Patient Procedure details: EMG used? No Electrical stimulation used? No Diluted by: Preservative free saline Toxin (Brand): OnaBoNT-A (Botox) Total units available: 200 Ad hoc region [...] Please call if you have difficulty swallowing. You received Toradol today for your severe headache. We are going to continue with 5 day of pills starting tomorrow to break your headache cycle. Take 1 pill with breakfast lunch dinner and bedtime for 5 days. Take with food. Try not to take your triptan or antiinflammatory during this time. If you have any nausea or diarrhea with the medicine stop and call on the next business day. [facility] Work Phone: [facility] Work Phone: Estimated glomerular filtrat ion rate (GFR) non- Americanon 07-02-2023 GFR/1.73 sq M.predicted among non-blacks MDRD (S/P/Bld) [Vol rate/Area] mL/min/{1.73_m2} >=60 [facility] Laboratory - Chemistry and C hemistry - challengeon 07-02-2023 Calcium [Mass/Vol] 8.3 mg/dL 8.5-10.1 [facility] Chloride [Moles/Vol] 104 mmol/L 98-107 [facility] CO2 [Moles/Vol] 25.5 mmol/L 21.0-32.0 [facility] Creatinine [Mass/Vol] 1.15 mg/dL 0.70-1.[address] [facility] GFR/1.73 sq M.predicted MDRD (S/P/Bld) [Vol rate/Area] mL/min/{1.73_m2} >=60 [facility] Glucose [Mass/Vol] 76 mg/dL 74-106 [facility] Potassium [Moles/Vol] 4.1 mmol/L 3.5-5.[address] [facility] Sodium [Moles/Vol] 136 mmol/L 136-145 [facility] Urea nitrogen [Mass/Vol] 21.0 mg/dL 7.0-18.0 [facility] Urea nitrogen/Creatinine [Mass ratio] 18.3 mg/mg [facility] Serum or plasma anion gap de terminationon 07-02-2023 Anion gap [Moles/Vol] 10.6 mmol/L [facility] Reference Laboratory Testing Ordered By: Giovanna Donnelly on 06-05-2023 Test Name toxassure 23 Invalid Interpretation Code [facility] SendOutsSS Alanine aminotransferase [En zymatic activity/volume] in Serum or PlasmaOrdered By: Melissa Wilson on 05-15-2023 ALT [Catalytic activity/Vol] 8 U/L 7-52 [facility] Albumin [Mass/volume] in Ser um or Plasma by Bromocresol green (BCG) dye binding methoOrdered By: Melissa Wilson on 05-15-2023 Albumin BCG dye [Mass/Vol] 3.9 g/dL 3.5-5.7 [facility] Alkaline phosphatase [Enzyma tic activity/volume] in Serum or PlasmaOrdered By: Melissa Wilson on 05-15-2023 ALP [Catalytic activity/Vol] 85 U/L 34-104 [facility] Aspartate aminotransferase [ Enzymatic activity/volume] in Serum or PlasmaOrdered By: Melissa Wilson on 05-15-2023 AST [Catalytic activity/Vol] 11 U/L Low 13-39 [facility] Basophils Auto (Bld) [#/Vol] Ordered By: Melissa Wilson on 05-15-2023 Basophils (Bld) [#/Vol] 0.0 10*3/uL 0.0-0.2 [facility] Basophils/100 WBC Auto (Bld) Ordered By: Melissa Wilson on 05-15-2023 Basophils/100 WBC (Bld) 0.4 % . [facility] Bilirubin.total [Mass/volume ] in Serum or PlasmaOrdered By: Melissa Wilson on 05-15-2023 Bilirubin [Mass/Vol] 0.4 mg/dL 0.3-1.0 [facility] Calcium [Mass/volume] in Ser um or PlasmaOrdered By: Melissa Wilson on 05-15-2023 Calcium [Mass/Vol] 8.5 mg/dL Low 8.6-10.3 [facility] Carbon dioxide, total [Moles /volume] in Serum or PlasmaOrdered By: Melissa Wilson on 05-15-2023 CO2 [Moles/Vol] 22.9 mmol/L 21.0-31.0 [facility] Chloride [Moles/volume] in S isael or PlasmaOrdered By: Melissa Wilson on 05-15-2023 Chloride [Moles/Vol] 107 mmol/L 98-107 [facility] Creatinine [Mass/volume] in Serum or PlasmaOrdered By: Melissa Wilson on 05-15-2023 Creatinine [Mass/Vol] 1.14 mg/dL 0.70-1.[address] [facility] Eosinophils Auto (Bld) [#/Vo l]Ordered By: Melissa Wilson on 05-15-2023 Eosinophils (Bld) [#/Vol] 0.0 10*3/uL 0.0-0.45 [facility] Eosinophils/100 WBC Auto (Bl d)Ordered By: Melissa Wilson on 05-15-2023 Eosinophils/100 WBC (Bld) 0.0 % . [facility] Erythrocyte distribution wid th Auto (RBC) [Ratio]Ordered By: Melissa Wilson on 05-15-2023 Erythrocyte distribution width (RBC) [Ratio] 13.9 % 12.0-14.8 [facility] Ferritin [Mass/volume] in Se rum or PlasmaOrdered By: Melissa Wilson on 05-15-2023 Ferritin [Mass/Vol] 62.6 ng/mL 23.9-336.2 [facility] Globulin Calc (S) [Mass/Vol] Ordered By: Melissa Wilson on 05-15-2023 Globulin (S) [Mass/Vol] 3.5 g/dL [facility] Glucose [Mass/volume] in Ser um or PlasmaOrdered By: Melissa Wilson on 05-15-2023 Glucose [Mass/Vol] 92 mg/dL 70-100 [facility] Comment on above: ADA recommended refe rence rangeRandom Glucose Reference Range is dependent on time and content of last meal. Glucose of more than 200 mg/dL in a nonstressed, ambulatory subject supports the diagnosis of Diabetes Mellitus. Hematocrit Auto (Bld) [Volum e fraction]Ordered By: Melissa Wilson on 05-15-2023 Hematocrit (Bld) [Volume fraction] 45.5 % 38.8-50.0 [facility] Hemoglobin [Mass/volume] in BloodOrdered By: Melissa Wilson on 05-15-2023 Hemoglobin (Bld) [Mass/Vol] 15.7 g/dL 13.0-17.0 [facility] Iron [Mass/volume] in Serum or PlasmaOrdered By: Melissa Wilson on 05-15-2023 Iron [Mass/Vol] 62 ug/dL 50-212 [facility] Iron binding capacity [Mass/ volume] in Serum or PlasmaOrdered By: Melissa Wilson on 05-15-2023 Iron binding capacity [Mass/Vol] 251 ug/dL 255-450 [facility] Iron saturation [Mass Fracti on] in Serum or PlasmaOrdered By: Melissa Wilson on 05-15-2023 Iron saturation [Mass fraction] 24.7 % 20-50 [facility] Leukocytes [#/volume] correc adalberto for nucleated erythrocytes in Blood by Automated counOrdered By: Melissa Wilson on 05-15-2023 WBC corrected for nucl RBC Auto (Bld) [#/Vol] 4.0 10*3/uL 4.1-10.5 [facility] Lymphocytes Auto (Bld) [#/Vo l]Ordered By: Melissa Wilson on 05-15-2023 Lymphocytes (Bld) [#/Vol] 1.3 10*3/uL 1.00-4.8 [facility] Lymphocytes/100 WBC Auto (Bl d)Ordered By: Melissa Wilson on 05-15-2023 Lymphocytes/100 WBC (Bld) 32.5 % . [facility] MCH Auto (RBC) [Entitic mass ]Ordered By: Melissa Wilson on 05-15-2023 MCH (RBC) [Entitic mass] 30.8 pg 27.5-35.2 [facility] MCHC Auto (RBC) [Mass/Vol]Or dered By: Melissa Wilson on 05-15-2023 MCHC (RBC) [Mass/Vol] 34.5 g/dL 32.5-35.[address] [facility] MCV Auto (RBC) [Entitic vol] Ordered By: Melissa Wilson on 05-15-2023 MCV (RBC) [Entitic vol] 89.5 fL 83.5-101 [facility] Monocytes Auto (Bld) [#/Vol] Ordered By: Melissa Wilson on 05-15-2023 Monocytes (Bld) [#/Vol] 0.3 10*3/uL 0.0-0.8 [facility] Monocytes/100 WBC Auto (Bld) Ordered By: Melissa Wilson on 05-15-2023 Monocytes/100 WBC (Bld) 8.7 % . [facility] Neutrophils Auto (Bld) [#/Vo l]Ordered By: Melissa Wilson on 05-15-2023 Neutrophils (Bld) [#/Vol] 2.3 10*3/uL 1.8-7.7 [facility] Neutrophils/100 WBC Auto (Bl d)Ordered By: Melissa Wilson on 05-15-2023 Neutrophils/100 WBC (Bld) 58.4 % . [facility] No Panel InformationOrdered By: Melissa Wilson on 05-15-2023 Estimated GFR (CKD-EPI) > 60.0 mL/Min [facility] Creatinine Clearance (Chem 73.16 [facility] Nucleated erythrocytes [Pres ence] in Blood by Automated countOrdered By: Melissa Wilson on 05-15-2023 Nucleated RBC Auto Ql (Bld) 0.3 /100{WBC} 0-0.5 [facility] Platelet mean volume Auto (B ld) [Entitic vol]Ordered By: Melissa Wilson on 05-15-2023 Platelet mean volume (Bld) [Entitic vol] 7.2 fL 6.6-10.1 [facility] Platelets Auto (Bld) [#/Vol] Ordered By: Melissa Wilson on 05-15-2023 Platelets (Bld) [#/Vol] 199 10*3/uL 150-450 [facility] Potassium [Moles/volume] in Serum or PlasmaOrdered By: Melissa Wilson on 05-15-2023 Potassium [Moles/Vol] 3.4 mmol/L Low 3.5-5.[address] [facility] Protein [Mass/volume] in Ser um or PlasmaOrdered By: Melissa Wilson on 05-15-2023 Protein [Mass/Vol] 7.4 g/dL 6.4-8.9 [facility] RBC Auto (Bld) [#/Vol]Ordere d By: Melissa Wilson on 05-15-2023 RBC (Bld) [#/Vol] 5.08 10*6/uL 3.90-5.60 [facility] Serum or plasma albumin/glob ulin mass ratioOrdered By: Melissa Steve on 05-15-2023 Albumin/Globulin [Mass ratio] 1.1 {ratio} [facility] Serum or plasma anion gap de terminationOrdered By: Melissa Wilson on 05-15-2023 Anion gap [Moles/Vol] 9.5 mmol/L 6.0-15.[address] [facility] Sodium [Moles/volume] in Ser um or PlasmaOrdered By: Melissa Wilson on 05-15-2023 Sodium [Moles/Vol] 136 mmol/L 136-145 [facility] Transferrin [Mass/volume] in Serum or PlasmaOrdered By: Melissa Wilson on 05-15-2023 Transferrin [Mass/Vol] 179 mg/dL 203-362 [facility] Urea nitrogen [Mass/volume] in Serum or PlasmaOrdered By: Melissa Wilson on 05-15-2023 Urea nitrogen [Mass/Vol] 23 mg/dL 7-25 [facility] WBC Auto (Bld) [#/Vol]Ordere d By: Melissa Wilson on 05-15-2023 WBC (Bld) [#/Vol] 4.0 10*3/uL 4.1-10.5 [facility] Head/Face/Jaw Botulinum Inje ctionon 04-15-2023 Jodie Matthews MD 04/15/2023 2:20 PM Head/Face/Jaw Botulinum Injection Date/Time: 04/15/2023 2:19 PM Performed by: Jodie Matthews MD Authorized by: Jodie Matthews MD Consent: Consent obtained: Verbal Consent given by: Patient Procedure details: EMG used? No Electrical stimulation used? No Diluted by: Preservative free saline Toxin (Brand): OnaBoNT-A (Botox) Total units available: 200 Ad hoc region [...] Please call if you have difficulty swallowing. You received Toradol today for your severe headache. We are going to continue with 5 day of pills starting tomorrow to break your headache cycle. Take 1 pill with breakfast lunch dinner and bedtime for 5 days. Take with food. Try not to take your triptan or antiinflammatory during this time. If you have any nausea or diarrhea with the medicine stop and call on the next business day. [facility] Work Phone: [facility] Work Phone: Alanine aminotransferase [En zymatic activity/volume] in Serum or PlasmaOrdered By: Melissa Wilson on 02-11-2023 ALT [Catalytic activity/Vol] 6 U/L 7-52 [facility] Albumin [Mass/volume] in Ser um or Plasma by Bromocresol green (BCG) dye binding methoOrdered By: Melissa Wilson on 02-11-2023 Albumin BCG dye [Mass/Vol] 4.2 g/dL 3.5-5.7 [facility] Alkaline phosphatase [Enzyma tic activity/volume] in Serum or PlasmaOrdered By: Melissa Wilson on 02-11-2023 ALP [Catalytic activity/Vol] 92 U/L 34-104 [facility] Anisocytosis LM Ql (Bld)Orde red By: Melissa Wilson on 02-11-2023 Anisocytosis Ql (Bld) Moderate [facility] Anisocytosis Ql (Bld) Anisocytosis [Pres ence] in Blood by Light microscopy [facility] Aspartate aminotransferase [ Enzymatic activity/volume] in Serum or PlasmaOrdered By: Melissa Wilson on 02-11-2023 AST [Catalytic activity/Vol] 14 U/L 13-39 [facility] Basophils Auto (Bld) [#/Vol] Ordered By: Melissa Wilson on 02-11-2023 Basophils (Bld) [#/Vol] 0.0 10*3/uL 0.0-0.2 [facility] Basophils/100 WBC Auto (Bld) Ordered By: Melissa Wilson on 02-11-2023 Basophils/100 WBC (Bld) 0.6 % . [facility] Bilirubin.total [Mass/volume ] in Serum or PlasmaOrdered By: Melissa Wilson on 02-11-2023 Bilirubin [Mass/Vol] 0.4 mg/dL 0.3-1.0 [facility] Calcium [Mass/volume] in Ser um or PlasmaOrdered By: Melissa Wilson on 02-11-2023 Calcium [Mass/Vol] 8.6 mg/dL 8.6-10.3 [facility] Carbon dioxide, total [Moles /volume] in Serum or PlasmaOrdered By: Melissa Wilson on 02-11-2023 CO2 [Moles/Vol] 27.1 mmol/L 21.0-31.0 [facility] Chloride [Moles/volume] in S isael or PlasmaOrdered By: Melissa Wilson on 02-11-2023 Chloride [Moles/Vol] 105 mmol/L 98-107 [facility] Creatinine [Mass/volume] in Serum or PlasmaOrdered By: Melissa Wilson on 02-11-2023 Creatinine [Mass/Vol] 1.02 mg/dL 0.70-1.[address] [facility] Eosinophils Auto (Bld) [#/Vo l]Ordered By: Melissa Wilson on 02-11-2023 Eosinophils (Bld) [#/Vol] 0.0 10*3/uL 0.0-0.45 [facility] Eosinophils/100 WBC Auto (Bl d)Ordered By: Melissa Wilson on 02-11-2023 Eosinophils/100 WBC (Bld) 0.0 % . [facility] Erythrocyte distribution wid th Auto (RBC) [Ratio]Ordered By: Melissa Wilson on 02-11-2023 Erythrocyte distribution width (RBC) [Ratio] 14.3 % 12.0-14.8 [facility] Ferritin [Mass/volume] in Se rum or PlasmaOrdered By: Melissa Wilson on 02-11-2023 Ferritin [Mass/Vol] 38.3 ng/mL 23.9-336.2 [facility] Globulin Calc (S) [Mass/Vol] Ordered By: Melissa Wilson on 02-11-2023 Globulin (S) [Mass/Vol] 3.1 g/dL [facility] Glucose [Mass/volume] in Ser um or PlasmaOrdered By: Melissa Wilson on 02-11-2023 Glucose [Mass/Vol] 65 mg/dL 70-100 [facility] Comment on above: ADA recommended refe rence rangeRandom Glucose Reference Range is dependent on time and content of last meal. Glucose of more than 200 mg/dL in a nonstressed, ambulatory subject supports the diagnosis of Diabetes Mellitus. Hematocrit Auto (Bld) [Volum e fraction]Ordered By: Melissa Wilson on 02-11-2023 Hematocrit (Bld) [Volume fraction] 46.3 % 38.8-50.0 [facility] Hemoglobin [Mass/volume] in BloodOrdered By: Melissa Wilson on 02-11-2023 Hemoglobin (Bld) [Mass/Vol] 15.7 g/dL 13.0-17.0 [facility] Iron [Mass/volume] in Serum or PlasmaOrdered By: Melissa Wilson on 02-11-2023 Iron [Mass/Vol] 84 ug/dL 50-212 [facility] Iron binding capacity [Mass/ volume] in Serum or PlasmaOrdered By: Melissa Wilson on 02-11-2023 Iron binding capacity [Mass/Vol] 305 ug/dL 255-450 [facility] Iron saturation [Mass Fracti on] in Serum or PlasmaOrdered By: Melissa Wilson on 02-11-2023 Iron saturation [Mass fraction] 27.5 % 20-50 [facility] Leukocytes [#/volume] correc adalberto for nucleated erythrocytes in Blood by Automated counOrdered By: Melissa Wilson on 02-11-2023 WBC corrected for nucl RBC Auto (Bld) [#/Vol] 4.7 10*3/uL 4.1-10.5 [facility] Lymphocytes Auto (Bld) [#/Vo l]Ordered By: Melissa Wilson on 02-11-2023 Lymphocytes (Bld) [#/Vol] 1.8 10*3/uL 1.00-4.8 [facility] Lymphocytes/100 WBC Auto (Bl d)Ordered By: Melissa Wilson on 02-11-2023 Lymphocytes/100 WBC (Bld) 37.4 % . [facility] MCH Auto (RBC) [Entitic mass ]Ordered By: Melissa Wilson on 02-11-2023 MCH (RBC) [Entitic mass] 30.7 pg 27.5-35.2 [facility] MCHC Auto (RBC) [Mass/Vol]Or dered By: Melissa Wilson on 02-11-2023 MCHC (RBC) [Mass/Vol] 34.0 g/dL 32.5-35.[address] [facility] MCV Auto (RBC) [Entitic vol] Ordered By: Melissa Wilson on 02-11-2023 MCV (RBC) [Entitic vol] 90.3 fL 83.5-101 [facility] Microcytes LM Ql (Bld)Ordere d By: Melissa Wilson on 02-11-2023 Microcytes Ql (Bld) Moderate [facility] Microcytes Ql (Bld) Microcytes [Presence ] in Blood by Light microscopy [facility] Monocytes Auto (Bld) [#/Vol] Ordered By: Melissa Wilson on 02-11-2023 Monocytes (Bld) [#/Vol] 0.3 10*3/uL 0.0-0.8 [facility] Monocytes/100 WBC Auto (Bld) Ordered By: Melissa Wilson on 02-11-2023 Monocytes/100 WBC (Bld) 6.3 % . [facility] Neutrophils Auto (Bld) [#/Vo l]Ordered By: Melissa Wilson on 02-11-2023 Neutrophils (Bld) [#/Vol] 2.6 10*3/uL 1.8-7.7 [facility] Neutrophils/100 WBC Auto (Bl d)Ordered By: Melissa Wilson on 02-11-2023 Neutrophils/100 WBC (Bld) 55.7 % . [facility] No Panel InformationOrdered By: Melissa Wilson on 02-11-2023 Estimated GFR (CKD-EPI) > 60.0 mL/Min [facility] Creatinine Clearance (Chem 82.40 [facility] Nucleated erythrocytes [Pres ence] in Blood by Automated countOrdered By: Melissa Wilson on 02-11-2023 Nucleated RBC Auto Ql (Bld) 0.2 /100{WBC} 0-0.5 [facility] Platelet adequacy [Presence] in Blood by Light microscopyOrdered By: Melissa Wilson on 02-11-2023 Platelets LM Ql (Bld) Normal Normal [facility] Platelets LM Ql (Bld) Platelet adequacy [Presence] in Blood by Light microscopy Normal [facility] Platelet mean volume Auto (B ld) [Entitic vol]Ordered By: Melissa Wilson on 02-11-2023 Platelet mean volume (Bld) [Entitic vol] 8.0 fL 6.6-10.1 [facility] Platelet morphology finding [Identifier] in BloodOrdered By: Melissa Wilson on 02-11-2023 Platelet morphology finding Nom (Bld) Normal Normal [facility] Platelet morphology finding Nom (Bld) Platelet morphology finding [Identifier] in Blood Normal [facility] Platelets Auto (Bld) [#/Vol] Ordered By: Melissa Wilson on 02-11-2023 Platelets (Bld) [#/Vol] 166 10*3/uL 150-450 [facility] Potassium [Moles/volume] in Serum or PlasmaOrdered By: Melissa Wilson on 02-11-2023 Potassium [Moles/Vol] 3.8 mmol/L 3.5-5.[address] [facility] Protein [Mass/volume] in Ser um or PlasmaOrdered By: Melissa Wilson on 02-11-2023 Protein [Mass/Vol] 7.3 g/dL 6.4-8.9 [facility] RBC Auto (Bld) [#/Vol]Ordere d By: Melissa Wilson on 02-11-2023 RBC (Bld) [#/Vol] 5.13 10*6/uL 3.90-5.60 [facility] RBC morphologyOrdered By: Frank Wilson on 02-11-2023 RBC morphology finding Nom (Bld) N/A [facility] RBC morphology finding Nom (Bld) RBC morphology [facility] Serum or plasma albumin/glob ulin mass ratioOrdered By: Melissa Wilson on 02-11-2023 Albumin/Globulin [Mass ratio] 1.4 {ratio} [facility] Serum or plasma anion gap de terminationOrdered By: Melissa Wilson on 02-11-2023 Anion gap [Moles/Vol] 8.7 mmol/L 6.0-15.0 [facility] Smudge cell detectionOrdered By: Melissa Wilson on 02-11-2023 Smudge cells LM Ql (Bld) Slight [facility] Smudge cells LM Ql (Bld) Smudge cell detection [facility] Sodium [Moles/volume] in Ser um or PlasmaOrdered By: Melissa Wilson on 02-11-2023 Sodium [Moles/Vol] 137 mmol/L 136-145 [facility] TRANSTHORACIC ECHO (TTE) COM PLETEon 02-11-2023 TRANSTHORACIC ECHO (TTE) COMPLETE [address], [address] [place] [address] TRANSTHORACIC ECHOCARDIOGRAM REPORT Patient Name: VELIA BAGLEY Reading Physician: [id number] Aureliano Black MD Study Date: 02/11/2023 Ordering Provider: [id number] RICH MAGANA MRN/PID: [id number] Fellow: Nurse: Date of /Age: 9 1960 / 63 years 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 [employer]: Elizabeth Costello RDCS Yasmany Gender: M Additional Staff: Height: 175.26 cm Admit Date: Weight: 85.73 kg Admission Status: BSA: 2.02 m2 Department Location: [facility] Blood Pressure: 118 /78 mmHg Study Type: [...] 0.5 m/s (0.6-0.9m/s) PV Max P.1 mmHg [id number] Aureliano Black MD Electronically signed on 02/11/2023 at 5:47:17 PM Final [facility] Transferrin [Mass/volume] in Serum or PlasmaOrdered By: Melissa Wilson on 02-11-2023 Transferrin [Mass/Vol] 218 mg/dL 203-362 [facility] US Heart TransthoracicOrdere d By: Aureliano Black on 02-11-2023 LV A4C EF 57.7 [facility] Work Phone: [facility] Work Phone: Heart Transthoracicon [facility] [address] [facility], [address], [place] [address] TRANSTHORACIC ECHOCARDIOGRAM REPORT Patient Name: VELIA BAGLEY Reading Physician: [id number] Aureliano Black MD Study Date: 02/11/2023 Ordering Provider: [id number] RICH MAGANA MRN/PID: [id number] Fellow: Nurse: Date of /Age: 9 1960 / 63 years 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 Gender: M Additional Staff: Height: 175.26 cm Admit Date: Weight: 85.73 kg Admission Status: BSA: 2.02 m2 Department Location: [facility] Blood Pressure: 118 /78 mmHg Study Type: [...] 0.5 m/s (0.6-0.9m/s) PV Max P.1 mmHg [id number] Aureliano Black MD Electronically signed on 02/11/2023 at 5:47:17 PM Final [facility] Work Phone: Urea nitrogen [Mass/volume] in Serum or PlasmaOrdered By: Melissa Wilson on 02-11-2023 Urea nitrogen [Mass/Vol] 16 mg/dL 11-25 [facility] WBC Auto (Bld) [#/Vol]Ordere d By: Melissa Wilson on 02-11-2023 WBC (Bld) [#/Vol] 4.7 10*3/uL 4.1-10.5 [facility] Tobacco Screening.on 023 Fall risk assessment b) One or more fall s in the last year [facility] Work Phone: Tobacco use status [facility] b) No [facility] Work Phone: Heart Rateon 01-20-2023 Heart Rate Regular [facility] 170 DO Work Phone: Heart Rate Normal [facility] 170 DO Work Phone: Heart Rate Large [facility] 170 DO Work Phone: Procedure (Neurology)on 01-02 Procedure (Neurology) Patient Instructio ns Please do not rub areas for 24 [...] Please call if you have difficulty swallowing. You received Toradol today for your severe headache. We are going to continue with 5 day of pills starting tomorrow to break your headache cycle. Take 1 pill with breakfast lunch dinner and bedtime for 5 days. Take with food. Try not to take your triptan or antiinflammatory during this time. If you have any nausea or diarrhea with the medicine stop and call on the next business day. Diagnoses/Problems Assessed Chronic migraine without aura, with intractable migraine, so stated, with status migrainosus (346.73) (G43.711) Orders Chronic migraine without aura, with intractable migraine, so stated, with status migrainosus Renew: Ketorolac Tromethamine 10 MG Oral Tablet; TAKE 1 TABLET BY MOUTH EVERY 6 HOURS WITH FOOD Administered: Ketorolac Tromethamine 60 MG/2ML Intramuscular Solution Formulary Override Reason: Drug interacts with concurrent Patient drug therapy PMH: Hemicrania continua, PMH: Migraine without aura, intractable Renew: Topiramate 50 MG Oral Tablet; 1 tid 1 in am and 1 with 200 mg. at evening and bedtime PMH: History of nausea and vomiting Renew: Ondansetron HCl - 4 MG Oral Tablet; 1 po q 8 hours prn Reason For Visit VELIA BAGLEY is being seen for Botulinum Toxin (Botox) Injection. Chief Complaint Every 90 day Botox injections onobotulinumtoxinA toxin A (NDC- 6720-0731 ) History of Present IllnessToradol IM after Botox to prevent injection triggered Migraines Vitals Vital Signs Recorded: [id number] 11:22AM Heart Rate88, L PT Pulse QualityRegular, L PT [id number] Respiration QualityNormal [id number], LLE, Sitting [id number], LLE, Sitting Blood Pressure Cuff SizeLarge Procedure Procedure: Botox injection. Indication: chronic migraine headaches. Risk, benefits, alternatives, risk of worsening pain, risk of URI, risk of dysphagia, risk of focal weakness and risk of facial paresis were discussed with the patient. Verbal consent was obtained prior to the procedure. Prior to the start of the procedure a time out was taken and the identity of the patient was confirmed via name and date of with the patient. The correct site and the procedure to be performed were confirmed and the site marked as appropriate. The correct side was confirmed if applicable. The positioning of the patient was verified. The availability of the correct equipment was verified. Betadine was used to prep the area. Procedure Note: The patient was placed in the upright and supine position. 200 units of Botulinum Toxin were injected bilaterally into the it network engineer muscle, procerus muscle, frontalis muscle., temporalis muscle, occipitalis muscle, cervical paraspinal muscle. Lot number: . Expiration date: . Post-Procedure: the patient tolerated the procedure well. Complications: None. Follow-up in the office in 6 week(s). Signatures Electronically signed by : Jodie Matthews MD; Jan 27 2023 12:44PM EST (Author) Normal DataArt Reference Laboratory Testing Ordered By: Eli Cruz on 2023 Test Name tox flex 23 Invalid Interpretation Code [facility] SendOutsSS Office Visit (Neuro-General) on 12-30-2022 Follow-up visit Patient Discussion/Summary continue current medications. reduce topimax to 50 tid plus 200 mg evening and bed botox changes. Diagnoses/Problems Assessed Cognitive dysfunction (294.9) (F09) Chronic migraine without aura, with intractable migraine, so stated, with status migrainosus (346.73) (G43.711) Orders Chronic migraine without aura, with intractable migraine, so stated, with status migrainosus Renew: Amitriptyline HCl - 100 MG Oral Tablet; TAKE 1 TABLET AT BEDTIME Renew: Ketorolac Tromethamine 10 MG Oral Tablet; TAKE 1 TABLET BY MOUTH EVERY 6 HOURS WITH FOOD PMH: Hemicrania continua, PMH: Migraine without aura, intractable Renew: Topiramate 50 MG Oral Tablet; 1 tid 1 in am and 1 with 200 mg. at evening and bedtime Chief Complaint Migraine management follow up Neurologic Evaluation. History of Present Illness Botox every 90 days. Last 10-20-2022 should fall under this authorization PQH9 scores 16 for moderately depression. Somewhat new for him. Sees a therapist every 2 weeks [facility]. Has a referral for psychiatrist would like to change the effexor. Does not separate depression from grieving at that point. Had a cognitive assessment which did not show memory difficulties. Did identify some attention and word finding difficulties. not a patternfor Alzhemers. . Recently increased venlafaxine to 150 BID from PCP, 2 weeks ago. Vicodin, Flexeril, and Lyrica for low back pain and shoulder from pain management. When saw neurosurgeon ( Dr Lance for LBP) she recommended new pain management. Seeing Dr. Umana at [facility] had a large volume epidural on December 26 isnt expecting to see results for 1 -2 more weeks. Had a bad fall in August Hit hip and shoulder and left side of head. Concussion continues. Hip and shoulder pain improving. In a bad daily migraine cycle currently due to variable weather and stress. Would like Toradol IM and PO today. Botox is helping. Treating with Rizatriptan, if ineffective will use Sumatriptan injection. Botox decreased frequency and severity. Continues Aimovig monthly as well as topiramate and amitriptyline for prevention . Denies constipation Migraine occurs right side and right frontal Associated light and noise sensitivity. Nausea-ondansetron has been effective in past. Refilled. Triggers are weather, stress, bright lights, Botox wear off, loud noises. Certain smells. Acetazolamide during stormy weather is helpful with bad week . Patient had 15 headache days a month or more, 8 meeting migraine criteria. They had tried and failed 3 preventative and 3 abortives. Presently their headaches are well controlled because of Botox Therapy. It has reduced the headaches by 50%. Individual has history of recurrent clonic or tonic involuntary contractions of one or more of the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 by Dr. 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 Tests PROCEDURES: Review of available records; Adult Neuropsychology History Form; Clinical interview with Mr. Bagley; Rod Anxiety Inventory (BHARATH); Rod Depression Inventory (BDI)-II; Brief Visuospatial Memory Test-Revised (BVMT-R); Carmen-Andrews Executive Function System (D-KEFS) Verbal Fluency; Dot Counting Test; Executive Clock Drawing Task (CLOX); Finger Tapping Test; Weston Verbal Learning Test-Revised (HVLT-R); Neuropsychological Assessment Battery (NAB) Naming Test; Stroop Color and Word Test; [place] Making Test (TMT); Vin Adult Intelligence Scale-Fourth Edition (WAIS-IV) Digit Span and Coding subtests; Vin Memory Scale-Fourth Edition (WMS-IV) Logical Memory; Vin Test of Adult Reading (WTAR); [place] Card Sorting Test (WCST). The purpose of this evaluation was reviewed, as were issues related to confidentiality, options for receiving feedback regarding results, and the precautionary measures being taken at to decrease risk of COVID-19 exposure. All questions were answered; Mr. Bagley verbalized understanding and agreed to proceed with this in-person evaluation. Note: All testing was administered by a distillery miller helper; results were interpreted in the context of the appropriate normative data. 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) Apnea, sleep (780.57) (G47.30) Asthma with COPD (493.20) (J44.89) Bilateral sensorineural hearing loss (389.18) (H90.3) Brain fog (799.59) (R41.89) Cardiac enzymes elevated (790.5) (R74.8) Chronic migraine without aura, with intractable migraine, so stated, with status migrainosus (346.73) (G43.711) Chronic sinusitis (473.9) (J32.9) Cognitive dysfunction (294.9) (F09) Cough (786.2) (R05.9) 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) Dx 07-29-20 History of Deep vein thrombosis (DVT) of femoral vein of left lower extremity, unspecified chronicity (453.41) (I82.412) Depression (311) (F32.A) Fatigue (780.79) (R53.83) Frequent UTI (599.0) (N39.0) Gastroesophageal reflux disease (530.81) (K21.9) Head injury (959.01) (S09.90XA) Interstitial lung disease (515) (J84.9) Musculoskeletal pain (729.1) (M79.18) Obstructive sleep apnea (327.23) (G47.33) Added by Problem List Migration; 2012-11-20; Moved to [facility] Mar 26 2013 9:02PM Personal history of COVID-19 (V12.09) (Z86.16) Pneumonia (486) (J18.9) Polyneuropathy (356.9) (G62.9) 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) Sepsis, due to unspecified organism, unspecified whether acute organ dysfunction present (038.9,995.91) (A41.9) Sleep apnea (780.57) (G47.30) SOB (shortness of breath) on exertion (786.05) (R06.02) Tremor (781.0) (R25.1) Weakness (780.79) (R53.1) Current Meds [employer] 160-9-4.8 MCG/ACT Inhalation Aerosol; two puffs bid and gargle after use; Therapy: [id number] to (Last Rx:[id number]) Requested for: [id number] Ordered Rx By: Rich Magana; Dispense: 0 Days ; #:1 X 10.7 GM Inhaler; Refill: 11;For: Asthma with COPD; KALPESH = N; Verified Transmission to [id number]; Last Updated By: Siobhan Marshall; 11/11/2022 11:17:20 AM Fasenra 30 MG/ML Subcutaneous Solution Prefilled Syringe; INJECT 1 SYRINGE SUBCUTANEOUSLY EVERY 8 WEEKS; To Be Done: [id number]; Status: HOLD FOR - Administration Ordered Rx By: Courtney Brown;For: Asthma with COPD; KALPESH = N; Request Administration Fasenra 30 MG/ML Subcutaneous Solution Prefilled Syringe; INJECT 30 MCG Injection; To Be Done: [id number]; Status: HOLD FOR - Administration Ordered Rx By: Courtney Brown;For: Asthma with COPD; KALPESH = N; Request Administration Fasenra Pen 30 MG/ML Subcutaneous Solution Auto-inj (more content not included)... Normal [facility] Heart Rateon 10-20-2022 Heart Rate Regular [facility] [place] 170 DO Work Phone: Heart Rate Normal [facility] [place] 170 DO Work Phone: Heart Rate Large [facility] [place] 170 DO Work Phone: Procedure (Neurology)on 10-02 Procedure (Neurology) Patient Instructio ns Please do not rub areas for 24 [...] Please call if you have difficulty swallowing. You received Toradol today for your severe headache. We are going to continue with 5 day of pills starting tomorrow to break your headache cycle. Take 1 pill with breakfast lunch dinner and bedtime for 5 days. Take with food. Try not to take your triptan or antiinflammatory during this time. If you have any nausea or diarrhea with the medicine stop and call on the next business day. Diagnoses/Problems Assessed Chronic migraine without aura, with intractable migraine, so stated, with status migrainosus (346.73) (G43.711) *Orders Chronic migraine without aura, with intractable migraine, so stated, with status migrainosus Renew: Ketorolac Tromethamine 10 MG Oral Tablet; TAKE 1 TABLET BY MOUTH EVERY 6 HOURS WITH FOOD Administered: Ketorolac Tromethamine 60 MG/2ML Intramuscular Solution Administered: Ketorolac Tromethamine 60 MG/2ML Intramuscular Solution Formulary Override Reason: Drug has been unsuccessful in the past Chronic migraine without aura, with intractable migraine, so stated, with status migrainosus (346.73) (G43.711) Reason For Visit VELIA JAMIERIRI is being seen for Botulinum Toxin (Botox) Injection. Chief Complaint Every 90 day Botox injections onobotulinumtoxinA toxin A ([facility]- [id number] 01) History of Present IllnessToradol IM after Botox to prevent injection triggered Migraines Vitals Vital Signs Recorded: 20Oct2022 11:32AM Heart Rate92, L Radial Pulse QualityRegular, L Radial [id number] Respiration QualityNormal Gscpcarf024, LUE, Sitting Guqsylzlf55, LUE, Sitting Blood Pressure Cuff SizeLarge Procedure Procedure: Botox injection. Indication: chronic migraine headaches. Risk, benefits, alternatives, risk of worsening pain, risk of URI, risk of dysphagia, risk of focal weakness and risk of facial paresis were discussed with the patient. Verbal consent was obtained prior to the procedure. Prior to the start of the procedure a time out was taken and the identity of the patient was confirmed via name and date of with the patient. The correct site and the procedure to be performed were confirmed and the site marked as appropriate. The correct side was confirmed if applicable. The positioning of the patient was verified. The availability of the correct equipment was verified. Betadine was used to prep the area. Procedure Note: The patient was placed in the upright and supine position. 200 units of Botulinum Toxin were injected bilaterally into the it network engineer muscle, procerus muscle, frontalis muscle., temporalis muscle, occipitalis muscle, cervical paraspinal muscle. Lot number: . Expiration date: . Post-Procedure: the patient tolerated the procedure well. Complications: None. Follow-up in the office in 6 week(s). Signatures Electronically signed by : Jodie Matthews MD; Oct 20 2022 7:54PM EST (Author) Normal Touchworks IGGon 09-10-2022 IgG [Mass/Vol] 1170 mg/dL Normal 700 - 1600 [facility] Comment on above: Result Comment: MONO CLONAL PROTEINS MAY CAUSE FALSELY LOW RESULTS IN THIS ASSAY. SERUM PROTEIN ELECTROPHORESIS SHOULD BE DONE THE FIRST TEST TO EVALUATE MONOCLONAL GAMMOPATHY. Performed By: #### I GG #### [facility] [address] [place] [address] Immunoglobulin G Level, Seru mon 09-09-2022 IgG [Mass/Vol] 1170 mg/dL 700 - 1600 [facility] [employer] [facility] Work Phone: Comment on above: MONOCLONAL PROTEINS MAY CAUSE FALSELY LOWRESULTS IN THIS ASSAY. SERUM PROTEINELECTROPHORESIS SHOULD BE DONE THEFIRST TEST TO EVALUATE MONOCLONAL GAMMOPATHY. 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 Continue Xopenex. He received Fasenra today. Use rescue inhaler as needed. Continue followup with Dr. Magana. Follow up in 2 months unless symptoms worsen prior. By signing my name below, I, Alida Zamora, attest that this documentation has been prepared under the direction and in the presence of Courtney Brown MD. All medical record entries made by the Donnaibe were at my direction and personally dictated by me. I have reviewed the chart and agree that the record accurately reflects my personal performance of the history, physical exam, discussion and plan. 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 Tolerating infusions well. Pretreats with Tylenol and Benadryl and 30 minutes between administering steroid and begin infusion. Continue Gamunex C 40 grams IV Q 4 weeks with 125 mg Solu-Medrol before infusion. 2. Asthma/COPD overlap - Chronic, controlled. ACT is 9. Managed by Dr. Magana. He admits to wheezing last night. He notes an RN from [facility] came to his home to discuss home Fasenra,which he is amenable with. Continue Xopenex. He received Fasenra today. Use rescue inhaler as needed. Refilled today. Continue followup with Dr. Magana. 3. Recurrent sinusitis - Chronic, controlled. Has been ill a couple of times with residual headache S/P concussion from a fall. Follow up in 2 months unless symptoms worsen prior. High risk of disease progression exists. Chief Complaint Followup visit for antipneumococcal polysaccharide antibody deficiency History of Present Illness Since last visit, 06/16/2022, patient reports he saw Dr. Magana yesterday who told him his lungs were clear. Patient states he developed hand and finger swelling on his right hand Thursday and was shiny. He called Dr. Rayo who recommended ED visit or observation. He chose not to go to the ED. He feels he used his arms frequently on Thursday moving furniture from one room to another. He was extremely weak likely due to overexertion. Patient has been ill a couple of times and had a fall after leaving [facility]. His left foot hit a stone and he fell hurting his left hip, left shoulder and left head. He denies any fracture or need for stitches but did have a concussion. He has residual headaches, but did get nausea medication after seeing Dr. Matthews last Thursday. He also had 5 days of Toradol and was told to rest. Patient admits he heard wheezing last night. An RN from [facility] can come out to set up home Fasenra. He agrees to set up home Fasenra after initial injection by the visiting nurse. Infusions are going well. He notes he takes Tylenol and Benadryl and waits 30 minutes between administering steroid and then begin infusion. Patient states he went to the [facility] and discussed his depression and insomnia. He does not get to sleep until [address] 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 He was started on omeprazole. He notes being told he had a vocal cord nodule that required no Tx. He was referred for ST. He was not referred to GI for reflux TX, but did see Dr. Melissa Wilson, GI, with endoscopy in May 2022. Review of Systems See attached Review of Systems in HPI. 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) Apnea, sleep (780.57) (G47.30) Asthma with COPD (493.20) (J44.9) Bilateral sensorineural hearing loss (389.18) (H90.3) Brain fog (799.59) (R41.89) Cardiac enzymes elevated (790.5) (R74.8) Chronic migraine without aura, with intractable migraine, so stated, with status migrainosus (346.73) (G43.711) Chronic sinusitis (473.9) (J32.9) Cognitive dysfunction (294.9) (F09) Cough (786.2) (R05.9) 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 Normal [facility] Follow Up (Pulmonary Medicin e)on 09-08-2022 Follow Up (Pulmonary Medicine) Patient Discussion/Summary The patient will continue present medications and return in 2 months. Provider Impressions The patient appears to be doing well from a respiratory perspective; his lungs are clear on auscultation and his percent saturation with a earlobe probe was 99%. I think he is doing well from a pulmonary perspective. Chief Complaint VELIA BAGLEY is here for a follow-up visit. History of Present Illness The patient is a 62-year-old with multiple comorbidities who had COVID pneumonia about a year ago. His recent CT scan showed stability with some faint groundglass changes and parenchymal scarring localized. There was no diffuse pulmonary fibrosis. He is on nebulized budesonide and he appears so far to be tolerating the tapering of the prednisone. He continues on Fasenra along with Trelegy inhaler. His lungs are clear to auscultation. He continues on the oxygen at night and has not been wearing of late because his daughter's cats 8 through the tubing. Unfortunately he will not get through the cats. When seen on September 16, 2021 the patient was hospitalized for bradycardia no specific cardiac issue was found. He continued on the Fasenra and ran out of his Trelegy over the last several weeks. He also ran out of his budesonide nebulization twice a day. He has not required any rescue inhalers of late and he has no coughing or congestion. He has lost a significant amount of weight and currently is off the prednisone. He has been off prednisone in years. He continued to deal with behavioral health issues and arrangements have been made for him to see different providers. He continued to have difficulties after his daughter's . He also was going to see sleep medicine for the potential pacemaker insertion. He was going to continue his nebulized desonide and to be maintained on Xopenex as needed and Trelegy. I wanted to avoid oral corticosteroids. In addition he continues on IVIG therapy and Dr. Brown was considering using Dupixent, nucala or Tezspire . He has no other pulse oximetry from December 05, 2021 follow-up adequate saturation was achieved at 2 L/min. When seen on December 16, 2021 has not required any prednisone and he continues on Trelegy. He also was on Fasenra and was using his rescue inhaler perhaps once or twice a day. He has no coughing or congestion. He has recovered from a viral illness and was on IVIG. He seemed to be doing well at that point in time and his last CBC from December 06, 2021 revealed no eosinophils. He was not having much breakthrough with respect to his hyperreactive airways. When seen last on April 15, 2022 he reported recent temperatures up to 102 degrees. His temperatures continued and his COVID testing was negative. He has been receiving iron therapy for his iron status of his anemia and he has been on Fasenra and some prednisone for exacerbation of his asthma. Several weeks ago he had increasing congestion and sputum cultures grew out staph aureus and Strep Galactiae and apparently was placed on Levaquin per Dr. Brown. The patient saw Dr. Brown yesterday and continues on his Fasenra administration. He receives his immunoglobulin replacement He was seen by Dr. Brown in June 16, 2022 and asthma was administered to reduce his allergy symptoms at night. He continues to receive immunoglobulin and comes in for follow-up. Also the follow-up CT scan from May 01, 2022 was stable. He was seen last on July 07, 2022 and was felt to have an asthma exacerbation. He continued on Trelegy and recently Asmanex had been added to his nightly regimen. He also was on budesonide. The patient reports that over the last month or so has had increasing congestion. He feels some tightness in his chest and has had some laryngitis at times. He feels hoarse and is coughing up generally dry in nature. He continues on his Trelegy along with budesonide nebulization twice daily. Recently Asmanex was added to his regimen at night. I told him to go on a prednisone taper and that he did not need to take both budesonide and Azmacort along with Trelegy. He was going to hold the Azmacort. Currently, he is doing quite well. He is getting the Fasenra injections. He is off steroids. He is using his rescue inhaler twice a day but has had no major exacerbations. He is utilizing his Trelegy and budesonide and the Azmacort is on hold. He had some swelling of his right arm over the last day or so but seems to be coming down. His percent saturation was somewhat reduced by the VNA. Review of Systems Constitutional: no chills, no fever, no night sweats and as noted in HPI. Eyes: no blurred vision and no eyesight problems. ENT: no hearing loss, no nasal congestion, no nasal discharge, no hoarseness and no sore throat. Cardiovascular: no chest pain, no intermittent leg claudication, no lower extremity edema, no palpitations, no syncope and as noted in HPI. Respiratory: no cough, no shortness of breath during exertion, no shortness of breath at rest, n (more content not included)... 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) Cognitive dysfunction (294.9) (F09) Orders Asthma with COPD Temporarily Stop: Asmanex (120 Metered Doses) 220 MCG/ACT Inhalation Aerosol Powder Breath Activated Chronic migraine without aura, with intractable migraine, so stated, with status migrainosus Start: Ketorolac Tromethamine 10 MG Oral Tablet; TAKE 1 TABLET BY MOUTH EVERY 6 HOURS WITH FOOD Renew: Aimovig 140 MG/ML Subcutaneous Solution Auto-injector; INJECT 1 PEN SUBCUTANEOUSLY ONCE A MONTH DIRECTED Renew: Celecoxib 200 MG Oral Capsule (CeleBREX); Take 2 capsules by mouth twice a day Formulary Override Reason: Drug interacts with concurrent Patient drug therapy Renew: Rizatriptan Benzoate 10 MG Oral Tablet; TAKE 1 TABLET BY MOUTH AT ONSET OF HEADACHE. MAY REPEAT EVERY 2 HOURS NEEDED MAX 3 PER 24 HOURS Renew: SUMAtriptan Succinate 6 MG/0.5ML Subcutaneous Solution Auto-injector; INJECT 1 DOSE AT ONSET OF HEADACHE. MAY REPEAT IN 2 HOURS. MAXIMUM DOSE: 2 IN 24 HOURS Administer: Ketorolac Tromethamine 60 MG/2ML Intramuscular Solution; INJECT 60 ML Intramuscular 30ml per 1 ml in bilateral gluteous muscles; To Be Done: 03Sep2022 PMH: Hemicrania continua, PMH: Migraine without aura, intractable Renew: Topiramate 100 MG Oral Tablet (Topamax); 1 tab in AM along with 200mg tabs at dinner and bed for 500mg daily PMH: History of nausea and vomiting Renew: Ondansetron HCl - 4 MG Oral Tablet; 1 po q 8 hours prn Chief Complaint Neurologic Evaluation. Follow up migraine management Adult Risk Screening Initial Fall Risk Screening: VELIA has fallen in the last 6 months. He has fallen due to tripped on sidewalk outside of store. His fall resulted in the following injury: bruising and concussion. August 19, 2022. VELIA has a fear of falling. He needs assistance with cane. Does not need assistance walking in his home. He needs assistance in an unfamiliar setting. The patient is using an assistive device. History of Present Illness Botox every 90 days. Last 07-16-2022 should fall under this authorization PQH9 scores 11 for moderately depression. Somewhat new for him. 2 weeks ago today was 1 year anniversary of daughters and . Is seeing a therapist at [facility] every 2 weeks and has referral for psychiatry. Does not separate depression from grieving at that point. End of October has cognitive assessment scheduled due to poor memory. Recently increased venlafaxine to 150 BID from PCP, 2 weeks ago. Vicodin, Flexeril, and Lyrica for low back pain and shoulder from pain management. When saw neurosurgeon ( Dr Lance for LBP) she recommended new pain management. Seeing Dr. Umana at [facility] Had a bad fall in August Hit hip and shoulder and left side of head. CT scans and xrays done at [facility] were normal . In a bad daily migraine cycle currently due to variable weather and stress. Would like Toradol IM and PO today. Treating with Rizatriptan, if ineffective will use Sumatriptan injection. Experiencing 4-6 migraines per week, sometimes continuous days in a row. Botox decreased frequency and severity. Continues Aimovig monthly as well as topiramate and amitriptyline for prevention . Migraine occurs right side and right frontal Associated light and noise sensitivity. Nausea-ondansetron has been effective in past. Refilled. Triggers are weather, stress, bright lights, Botox wear off, loud noises. Certain smells. Patient had 15 headache days a month or more, 8 meeting migraine criteria. They had tried and failed 3 preventative and 3 abortives. Presently their headaches are well controlled because of Botox Therapy. It has reduced the headaches by 50%. Individual has history of recurrent clonic or tonic involuntary contractions of one or more of the following muscles: sternocleidomastoid, splenius, trapezius, and/or posterior cervical muscles. Condition persisted for greater than 6 months. Botox is providing 50% reduction in symptoms of pain Walking with cane. Review of Systems Constitutional: no fever, no unexplained weight loss, no chills, no anorexia and no malaise. Eyes: no diplopia and no vision loss/change. ENMT: no hearing loss, no dizziness/vertigo and no tinnitus. Respiratory: no cough and no dyspnea. Cardiovascular: no chest pain, no palpitations and no syncope. Gastrointestinal: nausea/ vomiting, but no dysphagia, no bleeding, no diarrhea, no constipation, no abdominal pain and as noted in HPI. Genitourinary: no hematuria, no incontinence and no dysuria. Musculoskeletal: pain and back, but no joint swelling, no nonspecific pain, swelling, and stiffness, no muscle weakness and as noted in HPI. Skin: no rashes and no skin lesions/ulcers. Neurological: headaches and memory lapses or loss, but no (more content not included)... Normal Touchworks Respirationon 09-03-2022 Adult depression screening assessment Yes [facility] [address] [place] Work Phone: Adult depression screening assessment Moderate (10-14) [facility] [address] [place] Work Phone: Fall risk assessment b) One or more fall s in the last year [facility] [address] [place] Work Phone: Heart Rate Regular [facility] [address] [place] Work Phone: Tobacco use status CPHS b) No [facility] [address] [place] Work Phone: Respiration Normal [facility] [address] [place] Work Phone: Respiration Large [facility] [address] [place] Work Phone: Respiration 2-More than half the days [facility] [address] [place] Work Phone: Respiration 3-Nearly every day [facility] [address] [place] Work Phone: Respiration 0-Not at all [facility] [address] [place] Work Phone: Respiration Somewhat Difficult [facility] [address] [place] Work Phone: Office Visit ( [facility])on 08-29-2022 SARS-CoV-2 (COVID-19) RNA EMMY+probe Ql (Unsp spec) Diagnoses/Problems Assessed Apnea, sleep (780.57) (G47.30) Asthma with COPD (493.20) (J44.9) Brain fog (799.59) (R41.89) 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 We will focus on addressing the following concerns discussed today: Cognitive and memory changes, fatigue, insomnia, shortness of breath, cough, anxiety, depression, musculoskeletal pain, weakness My recommendations are as follows: -proceed with aquatherapy at [facility] as ordered by your orthopedic surgeon, after completion and clearance by them I also strongly recommend occupational therapy and physical therapy -referral to Neuropsychiatrist Dr. Zimmerman for anxiety, depression, insomnia -Neuropsychiatry evaluation is scheduled in October -continue close follow-up with your therapist -continue close follow-up with your specialists and their recommendations, including Pulmonary, Cardiology, Immunology, and pain Management Please return to [facility] in 3 months, call [phone] or email [email or web address] if needed. Please also consider attending PICS support group for long-COVID and post-ICU patients. To contact support group, email [email or web address] or call [phone] Chief Complaint FUV: SOB, brain fog, fatigue,cough. Adult Risk Screening Spiritual and Cultural: Patient Declined. Initial Fall Risk Screening: VELIA has fallen in the last 6 months. History of Present Illness Covid-19 infection date: July 2020 (sx: cough, SOB, fever ? hospitalized at [facility] and treatd with Remdesivir, Decadron, Antibiotics, was on supplemental O2 for 10 days following hospitalization) Covid-19 vaccine status: Pfizer 02/2021, 08/2021, 06/2022 Occupation: retired Current Care Providers: PCP Dr. Rayo, Pulmonary Dr. Magana, Immunology Dr. Brown, Neurology Dr. Matthews and Dr. Miller, Pain Management Dr. Jiménez, Cardiology Dr. Park, ENT Dr. Ruffin [facility], Hematology at [facility], ENT at [facility] Survey scores: 12/2020 -> 08/2021 -> 05/2022 PHQ-9: 18 -> 18 -> 22 MARY-7: 10 -> 10 -> 18 Sleep Wellness: 7 -> 7 -> 7 FSS average: 6 -> 6 -> 6 Modified ECog average: 3 -> 3 -> 3.333 MOCA: (12/2020) -> (05/2022) Overall Health: 15 -> 40 -> [age]yo man with h/o COVID-19 pneumonia in July 2020, asthma, chronic fatigue, depression, HTN, essential tremor, LLE DVT about 4 years ago (on previous AC), GERD, hyperlipidemia, ANN not tolerated of CPAP on 2L o2 at night, polyneuropathy, vertigo, migraines, dysphagia, 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 Has been feeling poorly Two years since his daughter Seeing therapist every two weeks, that has been helpful Future infusions are up in the air, home RN is on leave Son has been doing well, was recognized at work but then he was let go, not looking for work which is a financial strain for Velia Cognitive and memory changes has been suffering from the added stress, cannot remember what he is doing at times Sleep has been off and on, takes a lot out of him to go to sleep Groggy in the morning, especially if he is not able to sit down and watch TV, son drove him today Horrible headaches, on left and right, will be seeing Neurology next week Neuropsychology is coming up October 28 No new developments in regards to musculoskeletal pain, ortho ordered MRI of lower spine, was referred to surgeon Surgeon recommended brace for his foot and aquatherapy, will schedule at [facility] Relevant Hx: -03/2021 sleep medicine referred to ENT for inspire therapy -05/2021 audiology for dizziness and hearing loss, patient was unable to complete testing as he could not keep his eyes open, gaze test and OPKs were normal, recommended follow up with neurology. -01/2022 ENT suspects throat discomfort is due to GERD and increased PPI dose, does not feel patient is a candidate for Inspire based on mild ANN and nocturnal O2 use -01/2022 shipping & receiving lead at OSH recommends iron infusions -04/2022 Pulmonary ordred HRCT to f/u on previous GG changes and other scattered areas, hyperreactive airways disease seems under decent control presently -05/2022 pain management started flexeril, renewed norco and lyrica -05/2022 Neurology renewed aimovig and topiramate for chronic migrain (more content not included)... Normal Touchworks Alanine aminotransferase [En zymatic activity/volume] in Serum or PlasmaOrdered By: Melissa Wilson on 08-13-2022 ALT [Catalytic activity/Vol] 10 U/L 7-52 [facility] Albumin [Mass/volume] in Ser um or Plasma by Bromocresol green (BCG) dye binding methoOrdered By: Melissa Wilson on 08-13-2022 Albumin BCG dye [Mass/Vol] 3.7 g/dL 3.5-5.7 [facility] Alkaline phosphatase [Enzyma tic activity/volume] in Serum or PlasmaOrdered By: Melissa Wilson on 08-13-2022 ALP [Catalytic activity/Vol] 141 U/L 34-104 [facility] Aspartate aminotransferase [ Enzymatic activity/volume] in Serum or PlasmaOrdered By: Melissa Wilson on 08-13-2022 AST [Catalytic activity/Vol] 14 U/L 13-39 [facility] Basophils Auto (Bld) [#/Vol] Ordered By: Melissa Wilson on 08-13-2022 Basophils (Bld) [#/Vol] 0.0 10*3/uL 0.0-0.2 [facility] Basophils/100 WBC Auto (Bld) Ordered By: Melissa Wilson on 08-13-2022 Basophils/100 WBC (Bld) 0.2 % . [facility] Bilirubin.total [Mass/volume ] in Serum or PlasmaOrdered By: Melissa Wilson on 08-13-2022 Bilirubin [Mass/Vol] 0.5 mg/dL 0.3-1.0 [facility] Calcium [Mass/volume] in Ser um or PlasmaOrdered By: Melissa Wilson on 08-13-2022 Calcium [Mass/Vol] 8.0 mg/dL 8.6-10.3 [facility] Carbon dioxide, total [Moles /volume] in Serum or PlasmaOrdered By: Melissa Wilson on 08-13-2022 CO2 [Moles/Vol] 21.8 mmol/L 21.0-31.0 [facility] Chloride [Moles/volume] in S isael or PlasmaOrdered By: Melissa Wilson on 08-13-2022 Chloride [Moles/Vol] 108 mmol/L 98-107 [facility] Creatinine [Mass/volume] in Serum or PlasmaOrdered By: Melissa Wilson on 08-13-2022 Creatinine [Mass/Vol] 1.04 mg/dL 0.70-1.[address] [facility] Eosinophils Auto (Bld) [#/Vo l]Ordered By: Melissa Wilson on 08-13-2022 Eosinophils (Bld) [#/Vol] 0.0 10*3/uL 0.0-0.45 [facility] Eosinophils/100 WBC Auto (Bl d)Ordered By: Melissa Wilson on 08-13-2022 Eosinophils/100 WBC (Bld) 0.0 % . [facility] Erythrocyte distribution wid th Auto (RBC) [Ratio]Ordered By: Melissa Wilson on 08-13-2022 Erythrocyte distribution width (RBC) [Ratio] 13.9 % 12.0-14.8 [facility] Ferritin [Mass/volume] in Se rum or PlasmaOrdered By: Melissa Wilson on 08-13-2022 Ferritin [Mass/Vol] 110.6 ng/mL 23.9-336.2 [facility] Globulin Calc (S) [Mass/Vol] Ordered By: Melissa Wilson on 08-13-2022 Globulin (S) [Mass/Vol] 2.4 g/dL [facility] Glucose [Mass/volume] in Ser um or PlasmaOrdered By: Melissa Wilson on 08-13-2022 Glucose [Mass/Vol] 87 mg/dL 70-100 [facility] Comment on above: ADA recommended refe rence rangeRandom Glucose Reference Range is dependent on time and content of last meal. Glucose of more than 200 mg/dL in a nonstressed, ambulatory subject supports the diagnosis of Diabetes Mellitus. Hematocrit Auto (Bld) [Volum e fraction]Ordered By: Melissa Wilson on 08-13-2022 Hematocrit (Bld) [Volume fraction] 44.1 % 38.8-50.0 [facility] Hemoglobin [Mass/volume] in BloodOrdered By: Melissa Wilson on 08-13-2022 Hemoglobin (Bld) [Mass/Vol] 14.9 g/dL 13.0-17.0 [facility] Iron [Mass/volume] in Serum or PlasmaOrdered By: Melissa Wilson on 08-13-2022 Iron [Mass/Vol] 98 ug/dL 50-212 [facility] Iron binding capacity [Mass/ volume] in Serum or PlasmaOrdered By: Melissa Wilson on 08-13-2022 Iron binding capacity [Mass/Vol] 248 ug/dL 255-450 [facility] Iron saturation [Mass Fracti on] in Serum or PlasmaOrdered By: Melissa Wilson on 08-13-2022 Iron saturation [Mass fraction] 39.5 % 20-50 [facility] Leukocytes [#/volume] correc adalberto for nucleated erythrocytes in Blood by Automated counOrdered By: Melissa Wilson on 08-13-2022 WBC corrected for nucl RBC Auto (Bld) [#/Vol] 4.8 10*3/uL 4.1-10.5 [facility] Lymphocytes Auto (Bld) [#/Vo l]Ordered By: Melissa Wilson on 08-13-2022 Lymphocytes (Bld) [#/Vol] 1.3 10*3/uL 1.00-4.8 [facility] Lymphocytes/100 WBC Auto (Bl d)Ordered By: Melissa Wilson on 04-12-2023 Lymphocytes/100 WBC (Bld) 27.7 % . [facility] MCH Auto (RBC) [Entitic mass ]Ordered By: Melissa Wilson on 08-13-2022 MCH (RBC) [Entitic mass] 30.7 pg 27.5-35.2 [facility] MCHC Auto (RBC) [Mass/Vol]Or dered By: Melissa Wilson on 08-13-2022 MCHC (RBC) [Mass/Vol] 33.9 g/dL 32.5-35.[address] [facility] MCV Auto (RBC) [Entitic vol] Ordered By: Melissa Wilson on 08-13-2022 MCV (RBC) [Entitic vol] 90.5 fL 83.5-101 [facility] Monocytes Auto (Bld) [#/Vol] Ordered By: Melissa Wilson on 08-13-2022 Monocytes (Bld) [#/Vol] 0.4 10*3/uL 0.0-0.8 [facility] Monocytes/100 WBC Auto (Bld) Ordered By: Melissa Wilson on 08-13-2022 Monocytes/100 WBC (Bld) 9.4 % . [facility] Neutrophils Auto (Bld) [#/Vo l]Ordered By: Melissa Wilson on 08-13-2022 Neutrophils (Bld) [#/Vol] 3.0 10*3/uL 1.8-7.7 [facility] Neutrophils/100 WBC Auto (Bl d)Ordered By: Melissa Wilson on 08-13-2022 Neutrophils/100 WBC (Bld) 62.7 % . [facility] No Panel InformationOrdered By: Melissa Wilson on 08-13-2022 Estimated GFR (CKD-EPI) > 60.0 mL/Min [facility] Creatinine Clearance (Chem N/A [facility] Nucleated erythrocytes [Pres ence] in Blood by Automated countOrdered By: Melissa Wilson on 08-13-2022 Nucleated RBC Auto Ql (Bld) 0.1 /100{WBC} 0-0.5 [facility] Platelet mean volume Auto (B ld) [Entitic vol]Ordered By: Melissa Wilson on 08-13-2022 Platelet mean volume (Bld) [Entitic vol] 6.8 fL 6.6-10.1 [facility] Platelets Auto (Bld) [#/Vol] Ordered By: Melissa Wilson on 08-13-2022 Platelets (Bld) [#/Vol] 216 10*3/uL 150-450 [facility] Potassium [Moles/volume] in Serum or PlasmaOrdered By: Melissa Wilson on 08-13-2022 Potassium [Moles/Vol] 4.0 mmol/L 3.5-5.[address] [facility] Protein [Mass/volume] in Ser um or PlasmaOrdered By: Melissa Wilson on 08-13-2022 Protein [Mass/Vol] 6.1 g/dL 6.4-8.9 [facility] RBC Auto (Bld) [#/Vol]Ordere d By: Melissa Wilson on 08-13-2022 RBC (Bld) [#/Vol] 4.87 10*6/uL 3.90-5.60 [facility] Serum or plasma albumin/glob ulin mass ratioOrdered By: Melissa Wilson on 08-13-2022 Albumin/Globulin [Mass ratio] 1.5 {ratio} [facility] Serum or plasma anion gap de terminationOrdered By: Melissa Wilson on 08-13-2022 Anion gap [Moles/Vol] 11.2 mmol/L 6.0-15.0 [facility] Sodium [Moles/volume] in Ser um or PlasmaOrdered By: Melissa Wilson on 08-13-2022 Sodium [Moles/Vol] 137 mmol/L 136-145 [facility] Transferrin [Mass/volume] in Serum or PlasmaOrdered By: Melissa Wilson on 08-13-2022 Transferrin [Mass/Vol] 177 mg/dL 203-362 [facility] Urea nitrogen [Mass/volume] in Serum or PlasmaOrdered By: Melissa Wilson on 08-13-2022 Urea nitrogen [Mass/Vol] 18 mg/dL 7-25 [facility] WBC Auto (Bld) [#/Vol]Ordere d By: Melissa Wilson on 08-13-2022 WBC (Bld) [#/Vol] 4.8 10*3/uL 4.1-10.5 [facility] CNOVon 08-12-2022 CNOV Office Visit (OTOLMN ) -------- VELIA BAGLEY ([id number]) 1960 M Date Time Provider Department 08/12/22 2:15 PM GELA RUFFIN OTOLMN During your visit today, we recorded the following information about you: Gela Ruffin MD 08/13/2022 7:54 AM Signed This note is formatted with the Assessment and Plan first and Subjective and Objective sections to follow. Assessment: Dysphonia Plan: The patient was sent for evaluation of his upper airway. 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 On flexible laryngoscopy, he has mild irritation of the vocal folds with increased straining during phonation. We discussed the possibility of dysphonia secondary to underlying neurologic issues vs. Muscle tension dysphonia. We will refer for evaluation with speech therapy. Subjective: Mr. VELIA BAGLEY is a 62 year old male returning for evaluation of a week voice and sleep apnea. Last seen on 01/14/2021. Since last seen, he has had shortness of breath. His aircraft loadmaster superintendent wanted him to be evaluated to make sure he was not having an upper airway cause of his symptoms. He has COPD and is on multiple medications. He has no history of tobacco use. He is on 3 L NC at night. No history of cardiac problems. He has worsened shortness of breath with walking and exercise. He feels that his voice is slightly more raspy and he also does not have the projection that he used to have. ALLERGIES Allergen Reactions Avocado Swelling Baclofen Other: See Comments Dizziness and full body weakness Candasartan [Other] Rash Chocolate Unknown Ciprofloxacin (Bulk) Anaphylaxis Grass Pollen Unknown Indocin [Indomethac* Rash Ivp Dye [Iodine] Anaphylaxis Penicillins Rash Lima Oil Unknown Propranolol Other: See Comments Severe low bp and kidneys shutting down. Sulfa (Sulfonamide * Rash, Itching Valium [Diazepam] Other: See Comments Depression tamsulosin (FLOMAX) 0.4 mg, TAKE 2 CAPSULES BY MOUTH EVERY DAY AT BEDTIME *MUST SCHEDULE FOLLOW UP*, Disp: 60 capsule, Rfl: 1 acetylcysteine (MUCOMYST) 100 mg/mL (10 %) nebulizer solution, Inhale 1 mL as instructed every 12 hours, discard excess in vial after 4 days. (Patient not taking: Reported on 01/14/2021 ), Disp: 60 mL, Rfl: 0 gabapentin (NEURONTIN) 300 mg capsule, Take 1 capsule by mouth every 8 hours., Disp: , Rfl: topiramate (TOPAMAX) 100 mg tablet, Take 1 tablet by mouth twice daily., Disp: , Rfl: SUMAtriptan Succinate (IMITREX STAT) 6 mg/0.5 mL cartridge, Inject 6 mg subcutaneously. One injection at onset of migraine. Repeat 2 hours later as needed., Disp: , Rfl: levalbuterol tartrate HFA 45 mcg/actuation inhaler, Inhale 1-2 Puffs as instructed every 4 hours as needed for Wheezing/Shortness of Breath., Disp: , Rfl: acetaminophen (TYLENOL) 325 mg tablet, Take 650 mg by mouth every 4 hours as needed., Disp: , Rfl: albuterol (PROVENTIL) 2.5 mg/3 mL nebulizer solution, Inhale 2.5 mg as instructed every 6 hours as needed., Disp: , Rfl: verapamil SR (CALAN SR, ISOPTIN SR) 120 mg CR tablet, Take 1 tablet by mouth once daily., Disp: , Rfl: docusate sodium (COLACE) 100 mg capsule, Take 1 capsule by mouth twice daily as needed for Constipation., Disp: , Rfl: 0 aspirin 81 mg chewable tablet, Take 81 mg by mouth twice daily., Disp: , Rfl: omeprazole (PRILOSEC) 20 mg capsule, Take 20 mg by mouth twice daily., Disp: , Rfl: AIMOVIG AUTOINJECTOR 140 mg/mL syringe, Inject 140 mg subcutaneously once every month. Take on the 6th , Disp: , Rfl: venlafaxine ER (EFFEXOR XR) 75 mg 24 hr capsule, Take 75 mg by mouth once daily., Disp: , Rfl: levocetirizine (XYZAL) 5 mg tablet, Take 2.5 mg by mouth daily at bedtime. , Disp: , Rfl: tiotropium (SPIRIVA) 18 mcg inhalation capsule, Inhale 18 mcg as instructed once daily., Disp: , Rfl: levalbuterol (XOPENEX) 1.25 mg/3 mL nebulizer solution, Use 1 Ampule via nebulizer every 4 hours as needed., Disp: , Rfl: calcitonin,salmon,synthe tic (CALCITONIN, SALMON, NASAL), Use 1 Inhalation in the nose once daily. (alternating nostrils every other day) , Disp: , Rfl: amitriptyline (ELAVIL) 50 mg tablet, Take 50 mg by mouth daily at bedtime. , Disp: , Rfl: atorvastatin (LIPITOR) 40 mg tablet, Take 40 mg by mouth once daily. , Disp: , Rfl: FASENRA 30 mg/mL injection, Inject 30 mg subcutaneously every 8 weeks. Every 2 months Due september 2020 , Disp: , Rfl: budesonide-formoterol (SYMBICORT) 160-4.5 mcg/actuation inhaler, Inhale 2 Puffs as instructed twice daily. , Disp: , Rfl: rizatriptan (MAXALT) 10 mg tablet, Take 10 mg by mouth as needed for Migraine Headache (see administration instructions) (TWICE DAILY NEEDED). , Disp: , Rfl: fluticasone (FLONASE) 50 mcg/actuation nasal spray, Use 2 Sprays in each nostril once daily., Disp: 1 Bottle, Rfl: 11 montelukast (SINGULAI (more content not included)... Normal [facility] IMMUNOGLOBULIN IGG QUANTITAT IVEon 08-12-2022 Immunoglobulin G, Qn, Serum 1030 mg/dL Normal 603-1613 The Comment on above: Performed By: #### S CLARICE #### Laboratory [address], [place] [address] Dr. Carey Fisher PROF 14(COMP METB)on 023 Albumin [Mass/Vol] 3.1 g/dL Critically low 3.4-5.0 Th [facility] Comment on above: Performed By: #### S PUTGS #### Laboratory [address] [place] [address] Dr. Carey Fisher Albumin/Globulin [Mass ratio] 0.8 {ratio} Normal [facility] Comment on above: Performed By: #### S PUTGS #### Laboratory [address] [place] [address] Dr. Carey Fisher ALP [Catalytic activity/Vol] 161 U/L Critically high 46-116 [facility] Comment on above: Performed By: #### S PUTGS #### Laboratory [address] [place] [address] Dr. Carey Fisher ALT [Catalytic activity/Vol] 20 U/L Normal 16-63 [facility] Comment on above: Performed By: #### S PUTGS #### Laboratory [address] [place] [address] Dr. Carey Fisher Anion gap [Moles/Vol] 11.9 mmol/L Normal [facility] Comment on above: Performed By: #### S PUTGS #### Laboratory [address] [place] [address] Dr. Carey Fisher AST [Catalytic activity/Vol] 15 U/L Normal 15-37 [facility] Comment on above: Performed By: #### S PUTGS #### Laboratory [address] [place] [address] Dr. Carey Fisher Bilirubin [Mass/Vol] 0.5 mg/dL Normal 0.2-1.0 [facility] Comment on above: Performed By: #### S PUTGS #### Laboratory [address] [place] [address] Dr. Carey Fisher Calcium [Mass/Vol] 8.6 mg/dL Normal 8.5-10.1 [facility] Comment on above: Performed By: #### S PUTGS #### Laboratory [address] [place] [address] Dr. Carey Fisher Chloride [Moles/Vol] 107 mmol/L Normal 98-107 [facility] [facility] Comment on above: Performed By: #### S PUTGS #### Laboratory [address] [place] [address] Dr. Carey Fisher CO2 [Moles/Vol] 24.3 mmol/L Normal 21.0-32.0 [facility] Comment on above: Performed By: #### S PUTGS #### Laboratory [address] [place] [address] Dr. Carey Fisher Creatinine [Mass/Vol] 1.01 mg/dL Normal 0.70-1.30 The Comment on above: Performed By: #### S PUTGS #### Laboratory [address] [address] [address] Carey Fisher EGFR-AF SYRIAN >60 Normal >=60 [facility] Comment on above: Performed By: #### S PUTGS #### Laboratory [address] [place] [address] Dr. Carey Fisher EGFR-NON AF SYRIAN >60 Normal >=60 [facility] Comment on above: Performed By: #### S PUTGS #### Laboratory [address] [place] [address] Dr. Carey Fisher Globulin (S) [Mass/Vol] 3.9 g/dL Normal [facility] Comment on above: Performed By: #### S PUTGS #### Laboratory [address] [place] [address] Dr. Carey Fisher Glucose [Mass/Vol] 95 mg/dL Normal 74-106 [facility] Comment on above: Performed By: #### S PUTGS #### Laboratory [address] [place] [address] Dr. Carey Fisher Potassium [Moles/Vol] 4.2 mmol/L Normal 3.5-5.1 The Comment on above: Performed By: #### S PUTGS #### Laboratory [address] [place] [address] Dr. Carey Fisher Protein [Mass/Vol] 7.0 g/dL Normal 6.4-8.2 [facility] Comment on above: Performed By: #### S PUTGS #### Laboratory [address] [place] [address] Dr. Carey Fisher Sodium [Moles/Vol] 139 mmol/L Normal 136-145 [facility] Comment on above: Performed By: #### S PUTGS #### Laboratory [address] [address] [address] Carey Fisher Urea nitrogen [Mass/Vol] 20.0 mg/dL Critically high 7.0-18.0 [facility] Comment on above: Performed By: #### S PUTGS #### Laboratory [id number] Carey Fisher Urea nitrogen/Creatinine [Mass ratio] 19.8 mg/mg Normal [facility] Comment on above: Performed By: #### S PUTGS #### Laboratory [address] [address] [address] Carey Fisher Reference Laboratory Testing Ordered By: Fabi Ritter on 08-07-2022 Test Name project management instructor urine Invalid Interpretation Code [facility] SendOutsSS CT SINUS WO CONTRASTon 07-17 CT SINUS WO CONTRAST Patient Name: VELIA BAGLEY STUDY: CT paranasal sinuses INDICATION: Metformin/DRVS: U, HT: 175.73491 cm, WT: 87.216294 kg COMPARISON: none ACCESSION NUMBER(S): [id number] ORDERING CLINICIAN: COURTNEY BROWN TECHNIQUE: CT of the paranasal sinuses was performed with multiplanar reconstruction and 3D reconstruction FINDINGS: *Nasal fossa septal deviation to the right without bony spur. There is contact with the right inferior turbinate and narrowing of the right middle meatus. *Frontal sinuses: Normal *Ethmoid sinuses: Normal *Maxillary sinuses: Normal *Sphenoid sinuses: Normal *Mastoid sinuses: Normal *Maxilla and mandible: Normal ORBITS: Normal IMPRESSION: CT of the paranasal sinuses, mastoid sinuses and orbits is within normal limits. Interpretation was performed at [facility] Electronically signed by: LYNETTE DELGADO MD Normal [facility] CT Sinus without Contraston 07-17-2022 CT Sinuses WO contrast Normal [facility] Work Phone: Procedure (Neurology)on 07-02 Procedure (Neurology) Patient Instructio ns Please do not rub areas for 24 [...] Please call if you have difficulty swallowing. You received Toradol today for your severe headache. We are going to continue with 5 day of pills starting tomorrow to break your headache cycle. Take 1 pill with breakfast lunch dinner and bedtime for 5 days. Take with food. Try not to take your triptan or antiinflammatory during this time. If you have any nausea or diarrhea with the medicine stop and call on the next business day. Diagnoses/Problems Assessed Chronic migraine without aura, with intractable migraine, so stated, with status migrainosus (346.73) (G43.711) Orders Chronic migraine without aura, with intractable migraine, so stated, with status migrainosus Renew: Ketorolac Tromethamine 10 MG Oral Tablet; TAKE 1 TABLET BY MOUTH EVERY 6 HOURS WITH FOOD Administered: Ketorolac Tromethamine 60 MG/2ML Intramuscular Solution Reason For Visit VELIA BAGLEY is being seen for Botulinum Toxin (Botox) Injection. Chief Complaint Every 90 day Botox injections onobotulinumtoxinA toxin A ([facility]- [id number] 01) History of Present IllnessToradol IM after Botox to prevent injection triggered Migraines Vitals Vital Signs Recorded: 16Jul2022 01:01PM Lenqultrslv66.5 F, Temporal Heart Rate88, R Radial Pulse QualityRegular, R Radial Qwmsbbaznwz89 Respiration QualityNormal Fqfsvgll714, RUE, Sitting Ceuffihdo40, RUE, Sitting Blood Pressure Cuff SizeAdult Procedure Procedure: Botox injection. Indication: chronic migraine headaches. Risk, benefits, alternatives, risk of worsening pain, risk of URI, risk of dysphagia, risk of focal weakness and risk of facial paresis were discussed with the patient. Verbal consent was obtained prior to the procedure. Prior to the start of the procedure a time out was taken and the identity of the patient was confirmed via name and date of with the patient. The correct site and the procedure to be performed were confirmed and the site marked as appropriate. The correct side was confirmed if applicable. The positioning of the patient was verified. The availability of the correct equipment was verified. Betadine was used to prep the area. Procedure Note: The patient was placed in the upright and supine position. 200 units of Botulinum Toxin were injected bilaterally into the it network engineer muscle, procerus muscle, frontalis muscle., temporalis muscle, occipitalis muscle, cervical paraspinal muscle. Lot number: . Expiration date: . Post-Procedure: the patient tolerated the procedure well. Complications: None. Follow-up in the office in 6 week(s). Signatures Electronically signed by : Jodie Matthews MD; Jul 16 2022 2:54PM EST (Author) Normal [facility] Respirationon 07-16-2022 Heart Rate Regular [facility] Work Phone: Respiration Normal [facility] Work Phone: Respiration Adult [facility] Work Phone: Follow Up (Pulmonary Medicin e)on 07-09-2022 Follow Up (Pulmonary Medicine) Diagnoses/Problems Asthma with COPD (493.20) (J44.9) Orders Start: predniSONE 10 MG Oral Tablet; TAKE 4 TABLETS DAILY FOR 3 DAYS,3 TABLETS DAILY FOR 3 DAYS, 2 TABLETS DAILY FOR 3 DAYS AND 1 TABLET DAILY FOR 3 DAYS, THEN STOP Rx By: Rich Magana; Dispense: 0 Days ; #:30 Tablet; Refill: 1; For: Asthma with COPD; KALPESH = N; Verified Transmission to [id number]; Last Updated By: [employer]; 07/09/2022 12:09:50 PM Patient Discussion/Summary I would suggest a prednisone taper. Also he continues on the budesonide nebulization twice a day. In view of that I would hold the [place]. If his laryngitis continues will need to see ENT. He will return in 1 month. 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 He is on Trelegy along with budesonide. At this point probably using the Asmanex in addition to the budesonide is redundant. His lungs are clear but he is coughing and feels some tightness. He has not had a prednisone taper in a while. He continues on the Fasenra and his controller medications as outlined. He really is not coughing up much purulent phlegm. He does have some hoarseness as outlined. Chief Complaint VELIA BAGLEY is here for a follow-up visit. History of Present Illness The patient is a 62-year-old with multiple comorbidities who had COVID pneumonia about a year ago. His recent CT scan showed stability with some faint groundglass changes and parenchymal scarring localized. There was no diffuse pulmonary fibrosis. He is on nebulized budesonide and he appears so far to be tolerating the tapering of the prednisone. He continues on Fasenra along with Trelegy inhaler. His lungs are clear to auscultation. He continues on the oxygen at night and has not been wearing of late because his daughter's cats 8 through the tubing. Unfortunately he will not get through the cats. When seen on September 16, 2021 the patient was hospitalized for bradycardia no specific cardiac issue was found. He continued on the Fasenra and ran out of his Trelegy over the last several weeks. He also ran out of his budesonide nebulization twice a day. He has not required any rescue inhalers of late and he has no coughing or congestion. He has lost a significant amount of weight and currently is off the prednisone. He has been off prednisone in years. He continued to deal with behavioral health issues and arrangements have been made for him to see different providers. He continued to have difficulties after his daughter's . He also was going to see sleep medicine for the potential pacemaker insertion. He was going to continue his nebulized desonide and to be maintained on Xopenex as needed and Trelegy. I wanted to avoid oral corticosteroids. In addition he continues on IVIG therapy and Dr. Brown was considering using Dupixent, nucala or Tezspire . He has no other pulse oximetry from December 05, 2021 follow-up adequate saturation was achieved at 2 L/min. When seen on December 16, 2021 has not required any prednisone and he continues on Trelegy. He also was on Fasenra and was using his rescue inhaler perhaps once or twice a day. He has no coughing or congestion. He has recovered from a viral illness and was on IVIG. He seemed to be doing well at that point in time and his last CBC from December 06, 2021 revealed no eosinophils. He was not having much breakthrough with respect to his hyperreactive airways. When seen last on April 15, 2022 he reported recent temperatures up to 102 degrees. His temperatures continued and his COVID testing was negative. He has been receiving iron therapy for his iron status of his anemia and he has been on Fasenra and some prednisone for exacerbation of his asthma. Several weeks ago he had increasing congestion and sputum cultures grew out staph aureus and Strep Galactiae and apparently was placed on Levaquin per Dr. Brown. The patient saw Dr. Brown yesterday and continues on his Fasenra administration. He receives his immunoglobulin replacement He was seen by Dr. Brown in June 16, 2022 and asthma was administered to reduce his allergy symptoms at night. He continues to receive immunoglobulin and comes in for follow-up. Also the follow-up CT scan from May 01, 2022 was stable. The patient reports that over the last month or so has had increasing congestion. He feels some tightness in his chest and has had some laryngitis at times. He feels hoarse and is coughing up generally dry in nature. He continues on his Trelegy along with budesonide nebulization twice daily. Recently Asmanex was added to his regimen at night. Review of Systems Constitutional: no chills, no fever, no night sweats and as noted in HPI. Eyes: no blurred vision and no eyesight problems. ENT: no hearing loss, no nasal congestion, no nasal discharge, no hoarseness, no sore throat and as noted in HPI. Cardiovascular: no chest pain, no intermittent leg claudication, no lower extremit (more content not included)... Normal [employer] Tobacco Screening.on 023 Fall risk assessment b) One or more fall s in the last year [facility] Work Phone: Tobacco use status [facility] b) No [facility] Work Phone: ALLERGEN, RESP. AREA V w/ RE FLEXon 07-01-2022 Class Description Comment Normal [facility] Comment on above: Result Comment: Danielle chang of Specific IgE Class Description of Class ----- < 0.10 0 Negative 0.10 - 0.31 0/I Equivocal/Low 0.32 - 0.55 I Low 0.56 - 1.40 II Moderate 1.41 - 3.90 III High 3.91 - 19.00 IV Very High 19.01 - 100.00 V Very High >100.00 Very High Performed By: #### A REAFIV #### Laboratory [address] [place] [address] Dr. Carey Fisher L173-HiU D pteronyssinus <0.10 Normal Class 0 [facility] Comment on above: Performed By: #### A REAFIV #### Laboratory [address] [place] [address] Dr. Carey Fisher G749-WlJ D farinae <0.10 Normal Class 0 [facility] Comment on above: Performed By: #### A REAFIV #### Laboratory [address] [place] [address] Dr. Carey Fisher T266-VrW Cat Dander <0.10 Normal Class 0 [facility] Comment on above: Performed By: #### A REAFIV #### Laboratory [address] [place] [address] Dr. Carye Fisher H018-EoF Dog Dander <0.10 Normal Class 0 [facility] Comment on above: Performed By: #### A REAFIV #### Laboratory [address] [place] [address] Dr. Carey Fisher J546-EmX Mouse Urine <0.10 Normal Class 0 [facility] Comment on above: Performed By: #### A REAFIV #### Laboratory [address] [address] [address] Carey Fisher W245-NpA Bermuda Grass <0.10 Normal Class 0 [facility] Comment on above: Performed By: #### A REAFIV #### Laboratory [address] [place] [address] Dr. Carey Fisher W433-OaV Luis Grass <0.10 Normal Class 0 [facility] Comment on above: Performed By: #### A REAFIV #### Laboratory [address] [address] [address] Carey Fisher A315-OiQ Cockroach, Telugu <0.10 Normal Class 0 [facility] Comment on above: Performed By: #### A REAFIV #### Laboratory [address] [address] [address] Carey Fisher Immunoglobulin E, Total 9 IU/mL Normal 6-495 [facility] Comment on above: Performed By: #### A REAFIV #### Laboratory [address] [address] [address] Carey Fisher E136-OuE Penicillium chrysogen <0.10 Normal Class 0 [facility] Comment on above: Performed By: #### A REAFIV #### Laboratory [address] [address] [address] Carey Fisher T658-PjD Cladosporium herbarum <0.10 Normal Class 0 [facility] Comment on above: Performed By: #### A REAFIV #### Laboratory [address] [address] [address] Carey Fisher A683-VtM Aspergillus fumigatus <0.10 Normal Class 0 [facility] Comment on above: Performed By: #### A REAFIV #### Laboratory [address] [address] [address] Carey Fisher D232-BvP Alternaria alternata <0.10 Normal Class 0 [facility] Comment on above: Performed By: #### A REAFIV #### Laboratory [address] [address] [address] Carey Fisher J658-WiI Maple/[place] <0.10 Normal Class 0 [facility] Comment on above: Performed By: #### A REAFIV #### Laboratory [address] [address] [address] Carey Fisher K990-JzN Common Silver Birch <0.10 Normal Class 0 [facility] Comment on above: Performed By: #### A REAFIV #### Laboratory [address] [address] [address] Carey Fisher D323-DrO Towns, Mountain <0.10 Normal Class 0 [facility] Comment on above: Performed By: #### A REAFIV #### Laboratory [address] [address] [address] Carey Fisher U097-LvA Laporte, White <0.10 Normal Class 0 [facility] Comment on above: Performed By: #### A REAFIV #### Laboratory [address] [address] [address] Carey Fisher H532-FfV Elm, Afghan <0.10 Normal Class 0 [facility] Comment on above: Performed By: #### A REAFIV #### Laboratory [address] [place] [address] Dr. Carey Fisher M457-VnH [place] <0.10 Normal Class 0 [facility] Comment on above: Performed By: #### A REAFIV #### Laboratory [address] [address] [address] Carey Fisher O568-HlJ Maple [place] <0.10 Normal Class 0 [facility] Comment on above: Performed By: #### A REAFIV #### Laboratory [address] [place] [address] Dr. Carey Fisher C804-DbO Stanton <0.10 Normal Class 0 [facility] Comment on above: Performed By: #### A REAFIV #### Laboratory [address] [address] [address] Carey Fisher N043-JdP Arnaldo, White <0.10 Normal Class 0 [facility] Comment on above: Performed By: #### A REAFIV #### Laboratory [address] [place] [address] Dr. Carey Fisher Q019-QdT Pecan, Toombs <0.10 Normal Class 0 [facility] Comment on above: Performed By: #### A REAFIV #### Laboratory [address] [address] [address] Carey Fisher D547-TqE White [place] <0.10 Normal Class 0 [facility] Comment on above: Performed By: #### A REAFIV #### Laboratory [address] [place] [address] Dr. Carey Fisher I362-UtM Ragweed, Short <0.10 Normal Class 0 [facility] Comment on above: Performed By: #### A REAFIV #### Laboratory [address] [place] [address] Dr. Carey Fisher X831-MnQ Thistle, Mongolian <0.10 Normal Class 0 [facility] Comment on above: Performed By: #### A REAFIV #### Laboratory [address] [place] [address] Dr. Carey Fisher D303-VxF Pigweed, Common <0.10 Normal Class 0 [facility] Comment on above: Performed By: #### A REAFIV #### Laboratory [address] [place] [address] Dr. Carey Fisher P651-ZwN Sheep [place] <0.10 Normal Class 0 [facility] Comment on above: Performed By: #### A REAFIV #### Laboratory [address] [place] [address] Dr. Carey Fisher XR WRIST RT MIN 3 Von 2022 XR WRIST RT MIN 3 V Sezion Other CBC AUTO DIFFon 06-25-2022 BASO # 0.0 103/ul Normal 0.0-0.1 [facility] Comment on above: Performed By: #### S PUTGS #### Laboratory [address] [place] [address] Dr. Carey Fisher Basophils/100 WBC (Bld) 0.4 % Normal 0.2-2.0 [facility] Comment on above: Performed By: #### S PUTGS #### Laboratory [address] [place] [address] Dr. Carey Fisher EO # 0.0 103/ul Normal 0.0-0.7 [facility] Comment on above: Performed By: #### S PUTGS #### Laboratory [address] [place] [address] Dr. Carey Fisher Eosinophils/100 WBC (Bld) 0.0 % Critically low 0.9-7.0 [facility] Comment on above: Performed By: #### S PUTGS #### Laboratory [address] [place] [address] Dr. Carey Fisher Erythrocyte distribution width (RBC) [Ratio] 17.6 % Critically high 11.0-15.0 [facility] Comment on above: Performed By: #### S PUTGS #### Laboratory [address] [place] [address] Dr. Carey Fisher Hematocrit (Bld) [Volume fraction] 47.8 % Normal 42.0-54.0 [facility] Comment on above: Performed By: #### S PUTGS #### Laboratory [address] [place] [address] Dr. Carey Fisher Hemoglobin (Bld) [Mass/Vol] 16.0 g/dL Normal 14.0-18.0 [facility] Comment on above: Performed By: #### S PUTGS #### Laboratory [address] [place] [address] Dr. Carey Fisher IG # 0.01 10e3/ul Normal 0.00-0.03 [facility] Comment on above: Performed By: #### S PUTGS #### Laboratory [address] [place] [address] Dr. Carey Fisher IG % 0.2 % Normal 0.0-0.5 The Comment on above: Performed By: #### S PUTGS #### Laboratory [address] [place] [address] Dr. Carey Fisher LYMPH # 1.6 103/ul Normal 1.2-3.8 The Comment on above: Performed By: #### S PUTGS #### Laboratory [address] [place] [address] Dr. Carey Fisher Lymphocytes/100 WBC (Bld) 33.9 % Normal 20.5-60.0 [facility] Comment on above: Performed By: #### S PUTGS #### Laboratory [address] [place] [address] Dr. Carey Fisher MANUAL DIFF REQ NO Normal [facility] Comment on above: Performed By: #### S PUTGS #### Laboratory [address] [place] [address] Dr. Carey Fisher MCH (RBC) [Entitic mass] 28.9 pg Normal 25.9-34.0 [facility] Comment on above: Performed By: #### S PUTGS #### Laboratory [address] [place] [address] Dr. Carey Fisher MCHC (RBC) [Mass/Vol] 33.5 g/dL Normal 29.9-35.2 [facility] Comment on above: Performed By: #### S PUTGS #### Laboratory [address] [place] [address] Dr. Carey Fisher MCV (RBC) [Entitic vol] 86.4 fL Normal 80.0-94.0 [facility] Comment on above: Performed By: #### S PUTGS #### Laboratory [address] [place] [address] Dr. Carey Fisher MONO # 0.4 103/ul Normal 0.3-0.8 [facility] Comment on above: Performed By: #### S PUTGS #### Laboratory [address] [place] [address] Dr. Carey Fisher Monocytes/100 WBC (Bld) 7.9 % Normal 1.7-12.0 [facility] Comment on above: Performed By: #### S PUTGS #### Laboratory [address] [place] [address] Dr. Carey Fisher NEUT # 2.8 103/ul Normal 1.4-6.5 The Comment on above: Performed By: #### S PUTGS #### Laboratory [address] [place] [address] Dr. Carey Fisher Neutrophils/100 WBC (Bld) 57.6 % Normal 43.0-75.0 [facility] Comment on above: Performed By: #### S PUTGS #### Laboratory [address] [address] [address] Carey Fisher Platelet mean volume (Bld) [Entitic vol] 9.0 fL Critically low 9.5-13.5 [facility] Comment on above: Performed By: #### S PUTGS #### Laboratory [address] [address] [address] Carey Fisher PLT 201 103/ul Normal 150-450 The Comment on above: Performed By: #### S PUTGS #### Laboratory [address] [address] [address] Carey Fisher RBC 5.53 106/ul Normal 4.70-6.10 [facility] Comment on above: Performed By: #### S PUTGS #### Laboratory [address] [address] [address] Carey Fisher WBC 4.8 103/ul Normal 4.0-11.0 The Comment on above: Performed By: #### S PUTGS #### Laboratory [address] [address] [address] 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 : Unknown Radiologist to Determine Optimal Study : Y What are the patient's signs and symptoms? : recurrent sinusitis Asthma with COPD Start: Asmanex (120 Metered Doses) 220 MCG/ACT Inhalation Aerosol Powder Breath Activated; INHALE 2 PUFFS BY MOUTH TWICE EVERY DAY IO Respitory Flow Volume Loop; Status:Complete; Done: [id number] Administered: Fasenra 30 MG/ML Subcutaneous Solution Prefilled Syringe Respiratory Allergy Profile Region 5, IC; Status:Active; Requested for:[id number]; Patient Discussion/Summary Respiratory allergy panel CT of the sinus to evaluate for recurrent symptoms Follow up with Dr. Magana Start Asmanex if OK with Dr. Magana. Hopefully this will decrease your night time allergy symptoms. This note was created using speech recognition preparation room worker software. Despite proofreading, several typographical errors might be present that might affect the meaning of the content. 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 Tolerating infusions well. Continue Gamunex C 40 grams IV Q 4 weeks with 125 mg Solu-Medrol before infusion. 2. Asthma/COPD overlap - Chronic, controlled. Managed by Dr. Magana. He received Fasenra today. Use rescue inhaler as needed. Refilled today. Continue followup with Dr. Magana. He continues to have nighttime awakenings and his risk of exacerbation is relatively high. He does not like to use budesonide nebulized as an add-on treatment because of the taste. I would like him to start Asmanex 2 inhalations twice a day in addition to the Trelegy to see if we can keep him off oral steroids but improve his asthma symptoms. Of course, I would like him to first clear This with Dr. Magana 3. New onset recurrent sinusitis: He is describing recurrent cold-like symptoms that occur a couple times a week and at times will develop a full-blown sinus infection that goes into his chest and has increased coughing. With his history of immunodeficiency I would like him to undergo a CT scan to evaluate for a chronic underlying infection that may be causing these persistent symptoms. I explained to him that it really does not make sense that he is having recurrent viral infections at last 1 or 2 days a couple of times a week. CT sinus Respiratory allergy panel Follow up in 2 months unless symptoms worsen prior. High risk of disease progression exists. Chief Complaint Followup visit for antipneumococcal polysaccharide antibody deficiency History of Present Illness Since last visit, 04/14/2022, patient reports frequent falls. His hips are good, he does have some problems with his lower spine. He would like to get his Fasenra at home. More wheezing at night, around 9 or so, especially with activity. Some wheeze with rest, and some night time wakening. NT wakening about 2-3 times a week. He will use his inhaler or nebulizer. He feels that the nebulizer works better than the inhaler. He is asking about thermoplasty He denies any infections in the past two months. He is getting recurrent head cold. He is using Dayquil and Nyquil. He wakes up very congestion, typically unilaterally. He can blows his nose and gets clear watery secretions. He has a lot of secretions in his nasal canula. His symptoms will last for a day or two and then it will improve with meds and it will resolve. Every 1-2 of these colds will come into his chest. A lot of coughing with these bouts. Typically not productive. His asthma flares and he has vocal changes. Infusions are going well with next due July 15. . Review of Systems See attached Review of Systems in HPI. 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 Normal [employer] MOCA ([place] [facility])on 06-02-2022 MOCA ([facility]) Yes [facility] [address] [place] Work Phone: MOCA ([place] [facility]) 2 1 COVID [facility] [address] [place] Work Phone: MOCA ([place] [facility]) 3 1 COVID Recovery [facility] [address] [place] Work Phone: MOCA ([place] [facility]) 1 1 COVID [facility] [address] [place] Work Phone: MOCA ([place] [facility]) 0 1 COVID Recovery [facility] [address] [place] Work Phone: MOCA ([facility]) 6 1 COVID Recovery [facility] [address] [place] Work Phone: MOCA ([place] [facility]) 21 1 COVID [facility] [address] [place] Work Phone: Office Visit ( COVID [facility])on 06-02-2022 SARS-CoV-2 (COVID-19) RNA EMMY+probe Ql (Unsp spec) Diagnoses/Problems Assessed Asthma with COPD (493.20) (J44.9) Brain fog (799.59) (R41.89) Depression (311) (F32.A) Fatigue (780.79) (R53.83) Personal history of COVID-19 (V12.09) (Z86.16) 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 We will focus on addressing the following concerns discussed today: Cognitive and memory changes, insomnia, shortness of breath, cough, anxiety, depression, musculoskeletal pain, weakness My recommendations are as follows: -follow-up with cardiology, pulmonary, immunology, pain management, and ortho as scheduled -I encourage Physical and Occupational Therapy once cleared by Ortho -follow-up on your PCP?s referral to Psychology for Therapy at [facility], please let me know if you would like a referral to provider -referral to COVID-19 Neuropsychology to further evaluate your cognitive function Tips to help improve brain fog and fatigue: --avoid drinking Alcohol while recovering from COVID --ensure to practice 30 minutes of exercise 7 days per week to keep BNDGF (brain derived neurotrophic growth factor) elevated as this will help in the regeneration of neurons, you may split exercise time up into 5 minute increments if this is better tolerated. --Keep a food diary that grades fatigue and brain fog (for example: Thursday pizza -> fatigue 09/10 and brain fog 05/13. Thursday no food until 4pm -> fatigue 02/10 and brain fog 12/11). You may notice that carbohydrates are worsening your cognitive/mood symptoms 24hrs after ingestion. Avoid refined carbohydrates and added sugars. --Try intermittent fasting to help with symptoms, for example 12 hours of fasting overnight with no food/drinks except for water between 7pm and 7am --slowly increase your activity by no more than 10% per week, rest when you feel tired --utilize pacing techniques to manage fatigue, schedule rest times throughout the day so you do not run out of energy, more information to be found on this here: [email or web address]/[email or web address]/po st_covid-19_fatigue.pdf --Review the Health Talk on Managing Fatigue and Thinking Changes after COVID-19 here: https://www.hospitals. org/Health-Talks/article s//managing-fatig nv-cyy-smyyhwwp-changes- abhke-kpejd-58 --You can also find many helpful tips and tricks in this book: The Long COVID self-help guide, practical ways to manage symptoms by [employer] Specialists from the [facility] [place] To help improve sleep: --try Melatonin children's liquid drops 1-2mg underneath your tongue 30 minutes before you go to bed --go to bed at the same time each night and get up at the same time each morning, including the weekend --goal of 7-9 hours of uninterrupted sleep per night --make sure your bedroom is quiet, dark, relaxing, and at a comfortable temperature --remove electronic devices, such as TVs, computers, and smart phones, from your bedroom --avoid caffeine after the morning and large meals before bed --drink plenty of water throughout the day but avoid drinking fluids two hours before bed --expose yourself to bright light in the morning --engage in a calming bed-time routine of warm bath/shower, gratitude journal, guided meditation, etc. --do not lay awake in bed for more than 20 minutes, get up and engage in a soothing activity such as reading a boring book until you feel sleepy Please return to COVID Recovery Clinic in 3 months, call [phone] or email [email or web address] if needed. Please also consider attending PICS support group for long-COVID and post-ICU patients. To contact support group, email [email or web address] or call [phone] Chief Complaint FUV: Wheezing, memory issues, brain fog, head and chest colds. Adult Risk Screening Spiritual and Cultural: Patient Declined. Initial Fall Risk Screening: VELIA has fallen in the last 6 months. History of Present Illness Covid-19 infection date: July 2020 (sx: cough, SOB, fever ? hospitalized at [facility] and treatd with Remdesivir, Decadron, Antibiotics, was on supplemental O2 for 10 days following hospitalization) Covid-19 vaccine status: Pfizer 02/2021, 08/2021 Occupation: retired Current Care Providers: PCP Dr. Rayo, Pulmonary Dr. Magana, Immunology Dr. Brown, Neurology Dr. Matthews and Dr. Miller, Pain Management Dr. Jiménez, Cardiology Dr. Park, ENT Dr. Ruffin [facility], Hematology at [facility] Survey scores: 12/2020 -> 08/2021 -> 05/2022 PHQ-9: 18 -> 18 -> 22 MARY-7: 10 -> 10 -> 18 Sleep Wellness: 7 -> 7 -> 7 FSS average: 6 -> 6 -> 6 (more content not included)... Normal Touchworks Office Visit (Neuro-General) on 06-02-2022 Follow-up visit Patient Discussion/Summary You received Toradol today for your severe headache. We are going to continue with 5 day of pills starting tomorrow to break your headache cycle. Take 1 pill with breakfast lunch dinner and bedtime for 5 days. Take with food. Try not to take your triptan or antiinflammatory during this time. If you have any nausea or diarrhea with the medicine stop and call on the next business day. Orders Chronic migraine without aura, with intractable migraine, so stated, with status migrainosus Renew: Aimovig 140 MG/ML Subcutaneous Solution Auto-injector; INJECT 1 PEN SUBCUTANEOUSLY ONCE A MONTH DIRECTED Renew: Ketorolac Tromethamine 10 MG Oral Tablet; TAKE 1 TABLET BY MOUTH EVERY 6 HOURS WITH FOOD Chief Complaint Neurologic Evaluation. Follow up migraine management History of Present Illness Botox every 90 days. last 04-16-2022 has had a couple of falls in March and April 04 . Feels this is due to dizziness and leg weakness. Has been in intractable migraine cycle for past several days and would like Toradol protocol to break today. Treating with Sumatriptan injection and follows with Rizatriptan oral if needed. Sometimes adds Oxygen Notes that Sumatriptan injections have been difficult for him to administer properly lately . Son can inject but is not always available. Most effective treatment for him. Has spoken with pharmacist and no other devices available. He can go to pharmacy and they will administer as well. Does not have any neighbors at home during the day that he can ask to assist. Receives gammunex with home infusion every 5 weeks. Next week will start back on q 4 week cycles. Migraine occurs right frontal. Lightening bolt pain, knife through eye at times, right eye irritation Associated nausea, light and noise sensitivity, rare vomiting, poor appetite. Triggers are certain smells, temp changes. bright lights, loud noises, weather change. Stress, certain smells. Experiencing 13-15 migraines days per month. Decreased from 22 per month before Botox and Aimovig. Continues Aimovig monthly on Pain management for back pain, neck pain and joint pain. Vicodin PRN. Dr Jiménez Wants to do a nerve ablation for pain in back. But ortho disallowed him from the therapy that is needed to get the injections approved. 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 Iron infusions x 3 . Has seen a laboratory response. Had gammunex and had best response ever. Patient had 15 headache days a month or more, 8 meeting migraine criteria. They had tried and failed 3 preventative and 3 abortives. Presently their headaches are well controlled because of Botox Therapy. It has reduced the headaches by 50%. 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) Apnea, sleep (780.57) (G47.30) Asthma with COPD (493.20) (J44.9) Bilateral sensorineural hearing loss (389.18) (H90.3) Brain fog (799.59) (R41.89) Cardiac enzymes elevated (790.5) (R74.8) Chronic migraine without aura, with intractable migraine, so stated, with status migrainosus (346.73) (G43.711) Cough (786.2) (R05.9) 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) Dx 07-29-20 History of Deep vein thrombosis (DVT) of femoral vein of left lower extremity, unspecified chronicity (453.41) (I82.412) Depression (311) (F32.A) Dizziness (780.4) (R42) Dysphagia (787.20) (R13.10) Dyspnea on exertion (786.09) (R06.09) Fall (E888.9) (W19.XXXA) Fatigue (780.79) (R53.83) Frequent UTI (599.0) (N39.0) Gastroesophageal reflux disease (530.81) (K21.9) Head injury (959.01) (S09.90XA) Insomnia (780.52) (G47.00) Musculoskeletal pain (729.1) (M79.18) Obstructive sleep apnea (327.23) (G47.33) Added by Problem List Migration; 2012-11-20; Moved to [facility] Mar 26 2013 9:02PM Personal history of COVID-19 (V12.09) (Z86.16) Pneumonia (486) (J18.9) Polyneuropathy (356.9) (G62.9) 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0) (G56.03) Resolved Date: 05 Dec 2020 History of Cough productive of purulent sputum (786.2) (R05.8) Resolved Date: 23 Feb 2020 History of COVID-19 (079.89) (U07.1) Hi (more content not included)... Normal [employer] CULTURE SPUTUMon 05-29-2022 CULTURE SPUTUM Isolate 1 Staphylococcus aureus Light growth of Isolate 2 Streptococcus agalactiae Light growth of Isolate 3 Nina albicans Light growth of ORGANISM 1 Staphylococcus aureus ANTIBIOTIC M.I.C RX STATUS Beta-Lactamase Neg NEG F Cefoxitin Screen Neg NEG F Benzylpenicillin >=0.5 R F Oxacillin 1 S F Gentamicin <=0.5 S F Ciprofloxacin <=0.5 S F Levofloxacin <=0.12 S F Moxifloxacin <=0.25 S F Inducible Clindamycin Resistance Pos POS F Erythromycin >=8 R F Clindamycin <=0.25 R F Quinupristin/Dalfopristi n <=0.25 S F Linezolid 2 S F Vancomycin <=0.5 S F Tetracycline <=1 S F Rifampicin <=0.5 S F Trimethoprim/Sulfamethox azole <=10 S F ORGANISM 2 Streptococcus agalactiae ANTIBIOTIC M.I.C RX STATUS Benzylpenicillin <=0.06 S F Ampicillin <=0.25 S F Cefotaxime <=0.12 S F Ceftriaxone <=0.12 S F Levofloxacin 1 S F Inducible Clindamycin Resistance Neg NEG F Erythromycin 2 R F Clindamycin <=0.25 S F Linezolid <=2 S F Vancomycin 0.5 S F Tetracycline >=16 R F Normal [facility] Comment on above: Performed By: #### S PUTCX #### [id number] [address]Dr. Carey Fisher SPUTUM GRAM STAINon 05-26-19 COMMENTS Normal [facility] Comment on above: Performed By: #### S PUTGS #### Laboratory [address] [address] [address] Carey Fisher DIPHTHEROIDS [facility] Comment on above: Performed By: #### S PUTGS #### Laboratory [address] [address] [address] Carey Fisher EPITHELIALS <25 Normal [facility] Comment on above: Performed By: #### S PUTGS #### Laboratory [address] [address] [address] Carey Fisher FUNGAL ELEMENTS MODERATE Normal [facility] Comment on above: Performed By: #### S PUTGS #### Laboratory [address] [address] [address] Carey Fisher GRAM NEG BACILLI [facility] Comment on above: Performed By: #### S PUTGS #### Laboratory [address] [address] [address] Carey MARTINEZ NEG DIPPLOCOCCI [facility] Comment on above: Performed By: #### S PUTGS #### Laboratory [address] [address] [address] Carey MARTINEZ POS BACILLI [facility] Comment on above: Performed By: #### S PUTGS #### Laboratory [address] [address] [address] Carey Fisher GRAM POSITIVE COCCI MODERATE Normal [facility] Comment on above: Performed By: #### S PUTGS #### Laboratory [address] [place], [place] [address] Dr. Carey Fisher WBC (Bld) [#/Vol] 10*3/uL Normal [facility] Comment on above: Performed By: #### S PUTGS #### Laboratory [address] [place], [place] [address] Dr. Carey Fisher XR hip BI w [id number] 05-22-19 XR hip BI w PEL1V [facility] [employer] Other XR hip BI w PEL1V [facility] [place] [facility] [employer] Other XR hip BI w PEL1V [address] [place] [address] [employer] Other XR hip [place] [address] [employer] Other XR hip BI w PEL1V XRay Report [employer] Other XR hip BI w PEL1V Signed [facility] [employer] Other XR hip BI w PEL1V Patient: Valeriy Bagley MR#: [id number] [employer] Other XR hip BI w PEL1V : 1960 Acct:[id number] [employer] Other XR hip BI w PEL1V Age/Sex: 62 / M ADM Date: 05/22/22 [employer] Other XR hip BI w PEL1V Loc: [facility] Room: Type : [facility] [employer] Other XR hip BI w PEL1V Attending Dr: Sally Tiwari II, MD [employer] Other XR hip BI w PEL1V Copies to: Sally Tiwari MD [employer] Other XR hip BI w PEL1V Ordering Provider: Sally Tiwari MD [employer] Other XR hip BI w PEL1V Date of Service: 05/22/22 [employer] Other XR hip BI w PEL1V XR/XR hip BI w PEL1V: Pain in right hip;Pain in left hip [employer] Other XR hip BI w PEL1V XR hip BI w PEL1V 05/22/2022 2:43 PM [employer] Other XR hip BI w PEL1V SIGNS AND SYMPTOMS: Bilateral hip pain left greater than right [employer] Other XR hip BI w PEL1V PROTOCOL: Frontal radiograph of the pelvis with crosstable lateral views of the bilateral hips [employer] Other XR hip BI w PEL1V COMPARISON: 01/23/2022 [employer] Other XR hip BI w PEL1V FINDINGS: [facility] [employer] Other XR hip BI w PEL1V There is total right hip arthroplasty hardware. There is no fracture or dislocation. No hardware [employer] Other XR hip BI w PEL1V complication. The le ft hip joint space is preserved. Degenerative changes are noted in the lumbar [employer] Other XR hip BI w PEL1V spine. The sacroilia c joints are preserved. [employer] Other XR hip BI w PEL1V X R/XR hip BI w PEL1V [employer] Other XR hip BI w PEL1V IMPRESSION: [employer] Other XR hip BI w PEL1V Total right hip arthroplasty hardware is noted without hardware complication or change in alignment. [employer] Other XR hip BI w PEL1V No fracture or dislocation. [employer] Other XR hip BI w PEL1V No significant degenerative change of the left hip. [employer] Other XR hip BI w PEL1V Degenerative changes are partly visualized in the lower lumbar spine. [employer] Other XR hip BI w PEL1V Impression dictated by: Alix Jacinto M.D.05/22/2022 3:26 PM [employer] Other XR hip BI w PEL1V Dictation Location: [facility]- [employer] Other XR hip BI w PEL1V Transcribed By: PWS 05/22/22 [facility] [employer] Other XR hip BI w PEL1V Dictated By: Alix Jacinto II, MD 05/22/22 [facility] [employer] Other XR hip BI w PEL1V Signed By: [employer] Other XR hip BI w PEL1V 05/22/22 [facility] [employer] Other XR lumbar spine AP/LAT/FLX/E XTon 05-22-2022 XR lumbar spine AP/LAT/FLX/EXT XR/XR lumbar spine AP/LAT/FLX/EXT: Pain in right hip;Pain in left hip [employer] Other XR lumbar spine AP/LAT/FLX/EXT XR lumbar spine AP/LAT/FLX/EXT 05/22/2022 3:30 PM [employer] Other XR lumbar spine AP/LAT/FLX/EXT SIGNS AND SYMPTOMS: Low back pain radiating into bilateral hips [employer] Other XR lumbar spine AP/LAT/FLX/EXT PROTOCOLS: Frontal and lateral radiographs of the lumbar spine including flexion and extension [employer] Other XR lumbar spine AP/LAT/FLX/EXT views. [employer] Other XR lumbar spine AP/LAT/FLX/EXT COMPARISON: None [employer] Other XR lumbar spine AP/LAT/FLX/EXT There is a levoconvex curvature of the thoracolumbar spine with the apex at the L1-L2 intervertebral [employer] Other XR lumbar spine AP/LAT/FLX/EXT disc level. There is moderate to severe disc height loss at L3-L4 and L4-5. There is mild disc [employer] Other XR lumbar spine AP/LAT/FLX/EXT height loss at L1-L2 and L2-L3. There is no fracture or subluxation. No pathologic movement on [employer] Other XR lumbar spine AP/LAT/FLX/EXT flexion or extension. The sacrum and sacroiliac joints are normal. [employer] Other XR lumbar spine AP/LAT/FLX/EXT There is total right hip arthroplasty hardware. Enthesophyte formation is noted along the left iliac [employer] Other XR lumbar spine AP/LAT/FLX/EXT wing. [employer] Other XR lumbar spine AP/LAT/FLX/EXT XR/XR lumbar spine AP/LAT/FLX/EXT [employer] Other XR lumbar spine AP/LAT/FLX/EXT Multilevel degenerative change is noted with a levoconvex curvature. There is no fracture, [employer] Other XR lumbar spine AP/LAT/FLX/EXT subluxation, or pathologic movement. [employer] Other XR lumbar spine AP/LAT/FLX/EXT Impression dictated by: Alix Jacinto M.D.05/22/2022 5:35 PM [employer] Other XR lumbar spine AP/LAT/FLX/EXT Transcribed By: MEI 05/22/22 173 [employer] Other XR lumbar spine AP/LAT/FLX/EXT Dictated By: Alix Jacinto II, MD 05/22/22 612 [employer] Other XR lumbar spine AP/LAT/FLX/EXT 05/22/22 1735 [employer] Other No Panel Informationon 05-12 [facility]-Gastroente rology-[place]la ke SJW 450 DO Work Phone: [email or web address] x?[email or web address]} [facility]- [place] 170 DO Work Phone: [facility]- [place] 170 DO Work Phone: Order Reconciliationon 05-12 Order Reconciliation Page 1 Discharge Reconciliation Document Reconciliation Type: Discharge requested on behalf of Park Byrd (Physician) done by Park Byrd) Discharge - Reconciliation: 12-May-2022 08:28 by: Park Byrd) Home Medications EnteredHOME MEDICATIONS AT DISCHARGE DateReconciliation Comment/ Additional Information albuterol 2.5 mg/3 mL (0.083%) inhalation solution 3 milliliter(s) inhaled every 4 to 6 hours, As Needed 07-Mar-2016 11:54 albuterol 2.5 mg/3 mL (0.083%) inhalation solution 3 milliliter(s) inhaled every 4 to 6 hours, As Needed 07-Mar-2016 11:54 albuterol 2.5 mg/3 mL (0.083%) inhalation solution is continued as albuterol 2.5 mg/3 mL (0.083%) inhalation solution CeleBREX 200 mg oral capsule 2 cap(s) orally 2 times a day for dose of 400 mg bid 07-Mar-2016 12:00 CeleBREX 200 mg oral capsule 2 cap(s) orally 2 times a day for dose of 400 mg bid 07-Mar-2016 12:00 CeleBREX 200 mg oral capsule is continued as CeleBREX 200 mg oral capsule Flonase 0.05% 2 spray(s) in each nostril once a day 07-Mar-2016 11:56 Flonase 0.05% 2 spray(s) in each nostril once a day 07-Mar-2016 11:56 Flonase 0.05% is continued as Flonase 0.05% fluticasone-vilanterol 200 mcg-25 mcg/inh inhalation powder 1 puff(s) inhaled once a day 07-Mar-2016 11:55 fluticasone-vilanterol 200 mcg-25 mcg/inh inhalation powder 1 puff(s) inhaled once a day 07-Mar-2016 11:55 fluticasone-vilanterol 200 mcg-25 mcg/inh inhalation powder is continued as fluticasone-vilanterol 200 mcg-25 mcg/inh inhalation powder losartan 100 mg oral tablet 1 tab(s) orally once a day 07-Mar-2016 11:57 losartan 100 mg oral tablet 1 tab(s) orally once a day 07-Mar-2016 11:57 losartan 100 mg oral tablet is continued as losartan 100 mg oral tablet Lyrica 100 mg oral capsule 1 cap(s) orally 2 times a day 07-Mar-2016 12:00 Lyrica 100 mg oral capsule 1 cap(s) orally 2 times a day 07-Mar-2016 12:00 Lyrica 100 mg oral capsule is continued as Lyrica 100 mg oral capsule Wentworth 1 tab(s) orally 2 times a day, As Needed 07-Mar-2016 11:53 Wentworth 1 tab(s) orally 2 times a day, As Needed 07-Mar-2016 11:53 Wentworth is continued as Wentworth omeprazole 40 mg oral delayed release capsule 2 tab(s) orally 2 times a day 12-May-2022 07:46 omeprazole 40 mg oral delayed release capsule 2 tab(s) orally 2 times a day 12-May-2022 07:46 omeprazole 40 mg oral delayed release capsule is continued as omeprazole 40 mg oral delayed release capsule potassium chloride 10 - 20 milliequivalent(s) orally 3 times a day 07-Mar-2016 11:53 potassium chloride 10 - 20 milliequivalent(s) orally 3 times a day 07-Mar-2016 11:53 potassium chloride is continued as potassium chloride Singulair 10 mg oral tablet 1 tab(s) orally once a day (at bedtime) 07-Mar-2016 11:57 Singulair 10 mg oral tablet 1 tab(s) orally once a day (at bedtime) 07-Mar-2016 11:57 Singulair 10 mg oral tablet is continued as Singulair 10 mg oral tablet spironolactone 25 mg oral tablet 1 tab(s) orally once a day 07-Mar-2016 11:58 spironolactone 25 mg oral tablet 1 tab(s) orally once a day 07-Mar-2016 11:58 spironolactone 25 mg oral tablet is continued as spironolactone 25 mg oral tablet Topamax 100 mg oral tablet 2 tab(s) orally at 5 pm for dose of 200 mg 07-Mar-2016 11:59 Topamax 100 mg oral tablet 2 tab(s) orally at 5 pm for dose of 200 mg 07-Mar-2016 11:59 Topamax 100 mg oral tablet is continued as Topamax 100 mg oral tablet Topamax 100 mg oral tablet 2 tab(s) orally once a day (at bedtime) 12-May-2022 07:44 Topamax 100 mg oral tablet 2 tab(s) orally once a day (at bedtime) 12-May-2022 07:44 Topamax 100 mg oral tablet is continued as Topamax 100 mg oral tablet Topamax 100 mg oral tablet 2 tab(s) orally once a day (in the morning)for dose of 200 mg 07-Mar-2016 11:58 Topamax 100 mg oral tablet 2 tab(s) orally once a day (in the morning)for dose of 200 mg 07-Mar-2016 11:58 Topamax 100 mg oral tablet is continued as Topamax 100 mg oral tablet All Active Home Medications at time of Discharge Reconciliation: 12-May-2022 08:28 albuterol 2.5 mg/3 mL (0.083%) inhalation solution 3 milliliter(s) inhaled every 4 to 6 hours, As Needed CeleBREX 200 mg oral capsule 2 cap(s) orally 2 times a day for dose of 400 mg bid Flonase 0.05% 2 spray(s) in each nostril once a day fluticasone-vilanterol 200 mcg-25 mcg/inh inhalation powder 1 puff(s) inhaled once a day losartan 100 mg oral tablet 1 tab(s) orally once a day Lyrica 100 mg oral capsule 1 cap(s) orally 2 times a day Wentworth 1 tab(s) orally 2 times a day, As Needed omeprazole 40 mg oral delayed release capsule 2 tab(s) orally 2 times a day potassium chloride 10 - 20 milliequivalent(s) orally 3 times a day Singulair 10 mg oral tablet 1 tab(s) orally once a day (at bedtime) spironolactone 25 mg oral tablet 1 tab(s) orally once a day Topamax 100 mg oral tablet 2 tab(s) orally at 5 pm for dose of 200 mg Topamax 100 mg oral tablet 2 tab(s) orally once a day ( (more content not included)... Normal [facility] Surgical Pathology Depar tmenton 05-12-2022 [facility] Surgical Pathology Department Name VELIA BAGLEY Pathologist: Abigail Kirkpatrick M.D. Date of Procedure: 05/12/2022 Date Received: 05/12/2022 Date Reported 05/15/2022 Submitting Physician: PARK BYRD MD Location: [facility] Other External # FINAL DIAGNOSIS A. DUODENUM BIOPSY: -- UNREMARKABLE DUODENAL MUCOSA, NO FEATURES OF CELIAC DISEASE. B. STOMACH BIOPSY: -- REGENERATIVE GASTRIC MUCOSA WITHOUT SIGNIFICANT INFLAMMATION, CONSISTENT WITH GASTROPATHY. -- HELICOBACTER PYLORI STAIN NOT INDICATED. C. MID ESOPHAGUS BIOPSY: -- PATCHY ACUTE INFLAMMATION, NO ORGANISMS IDENTIFIED. -- NO INCREASED NUMBER OF EOSINOPHILS AND NO INTESTINAL METAPLASIA. Electronically Signed Out By Abigail Kirkpatrick M.D./[facility] By the signature on this report, the individual or group listed as making the Final Interpretation/Diagnosis certifies that they have reviewed this case. Diagnostic interpretation performed at [facility] [address] [place] [address] Clinical History: Anemia, dysphagia Specimens Submitted As: A: DUODENUM BIOPSY B: STOMACH BIOPSY C: MID ESOPHAGUS BIOPSY Gross Description: A: Received in formalin, labeled with the patient's name and hospital number and BX duodenum , are multiple fragments of cabrera, soft tissue aggregating to 0.8 x 0.4 x 0.2 cm. The specimen is submitted in toto in one cassette. LMP B: Received in formalin, labeled with the patient's name and hospital number and BX stomach , are multiple fragments of cabrera, soft tissue aggregating to 1.5 x 0.4 x 0.2 cm. The specimen is submitted in toto in one cassette. LMP C: Received in formalin, labeled with the patient's name and hospital number and BX mid esophagus , are multiple fragments of pale cabrera, soft tissue aggregating to 1.0 x 0.3 x 0.1 cm. The specimen is submitted in toto in one cassette. LMP lmp/05/13/2022 [facility] Department of Pathology [id number] [place] [address] Normal [facility] Comment on above: Performed By: #### [facility] #### [facility] Surgical Pathology Department [id number] [place], [place] [id number] Upper GI endoscopyon 023 Upper GI endoscopy PATIENTNAME Patient Name: Velia Bagley EXAMDATE Procedure Date: 05/12/2022 8:28 AM PATIENTID PATIENTACCOUNTNUM PATIENTDOB Date of : 1960 ADMITTYPE Admit Type: Outpatient PATIENTROOM Site: [facility] 1 ETHNICITY Ethnicity: Not or RACE Race: White PROVDR Attending MD: Park Byrd MD, [id number] ENDOPROCEDURENAME Procedure: Upper GI endoscopy INDICATION Indications: Iron deficiency anemia, Dysphagia PTPROFILE Patient Profile: This is a 62 year old male. Refer to note in patient chart for documentation of history and physical. PRIMARYPROVIDER Providers: Park Byrd MD (Doctor), Barbara Michelle RN (Nurse), Anson Fernandez, Carcass Splitter EDREFPROVIDER Referring: Melissa Williamson Steve CURRENT_MEDS Medicines: Monitored Anesthesia Care COMPLIC Complications: No immediate complications. ENDOPROCEDURETEXT Procedure: Pre-Anesthesia Assessment: - Prior to the [...] verified by the physician, the nurse, the brick wheeler and the platform power technician in the procedure room. Mental Status [...] difficulty. The patient tolerated the procedure well. FINDING Findings: Patchy mild mucosal changes characterized by [...] cold forceps for histology from the duodenum. SEDATION Moderate Sedation: N/A EBL Estimated Blood Loss: Estimated blood loss: none. IMPRESS Impression: - Scarred, texture changed mucosa in the esophagus. Biopsied. - Z-line, 36 cm from the incisors. - Scarred mucosa in the prepyloric region of the stomach. - Normal stomach. Biopsied. - Normal ampulla and examined duodenum. Biopsied. ENDORECOMMENDATION Recommendation: - Patient has a contact number available for emergencies. The signs and symptoms of potential delayed complications were discussed with the patient. Return to normal activities tomorrow. Written discharge instructions were provided to the patient. - Written discharge instructions were provided to the patient. - Resume previous diet. - Continue present medications. - Await pathology results. CPT_CODES Procedure Code(s): --- Professional --- 14490, Esophagogastroduodenosco py, flexible, transoral; with biopsy, single or multiple ICD_CODES Diagnosis Code(s): --- Professional --- K22.89, Other specified disease of esophagus K31.89, Other diseases of stomach and duodenum D50.9, Iron deficiency anemia, unspecified R13.10, Dysphagia, unspecified CODINGSTMT CPT copyright 2020 [employer]. All rights reserved. The codes documented in this report are preliminary and upon executive talent acquisition consultant review may be revised to meet current compliance requirements. ATTDRPART Attending Participation: I personally performed the en (more content not included)... Normal [facility] Albumin [Mass/volume] in Ser um or PlasmaOrdered By: Melissa Wilson on 05-08-2022 Albumin [Mass/Vol] 3.5 g/dL 3.2-5.5 [facility] Anisocytosis LM Ql (Bld)Orde red By: Melissa Wilson on 05-08-2022 Anisocytosis Ql (Bld) Moderate [facility] Basophils Auto (Bld) [#/Vol] Ordered By: Melissa Wilson on 05-08-2022 Basophils (Bld) [#/Vol] 0.0 10*3/uL 0.0-0.2 [facility] Basophils/100 WBC Auto (Bld) Ordered By: Melissa Wilson on 05-08-2022 Basophils/100 WBC (Bld) 0.2 % . [facility] CT biopsyOrdered By: Melissa Jason on 05-08-2022 Transferrin [Mass/Vol] 174 mg/dL 180-380 [facility] Creatinine and Glomerular fi ltration rate.predicted panel (S/P/Bld)Ordered By: Melissa Wilson on 05-08-2022 Creatinine [Mass/Vol] 1.18 mg/dL 0.64-1.[address] [facility] Eosinophils Auto (Bld) [#/Vo l]Ordered By: Melissa Wilson on 05-08-2022 Eosinophils (Bld) [#/Vol] 0.0 10*3/uL 0.0-0.45 [facility] Eosinophils/100 WBC Auto (Bl d)Ordered By: Melissa Wilson on 05-08-2022 Eosinophils/100 WBC (Bld) 0.0 % . [facility] Erythrocyte distribution wid th Auto (RBC) [Ratio]Ordered By: Melissa Wilson on 05-08-2022 Erythrocyte distribution width (RBC) [Ratio] 19.3 % 12.0-14.8 [facility] Estimated glomerular filtrat ion rate (GFR) non- AmericanOrdered By: Melissa Wilson on 05-08-2022 GFR/1.73 sq M.predicted among non-blacks MDRD (S/P/Bld) [Vol rate/Area] > 60 mL/Min [facility] GFR/1.73 sq M.predicted among non-blacks MDRD (S/P/Bld) [Vol rate/Area] Estimated glomerular filtration rate (GFR) non- [facility] Ferritin [Mass/volume] in Se rum or PlasmaOrdered By: Melissa Wilson on 05-08-2022 Ferritin [Mass/Vol] 185.8 ng/mL 23.9-336.2 [facility] Globulin Calc (S) [Mass/Vol] Ordered By: Melissa Wilson on 05-08-2022 Globulin (S) [Mass/Vol] 3.2 g/dL [facility] Hematocrit Auto (Bld) [Volum e fraction]Ordered By: Melissa Wilson on 05-08-2022 Hematocrit (Bld) [Volume fraction] 42.8 % 38.8-50.0 [facility] Hemoglobin [Mass/volume] in BloodOrdered By: Melissa Wilson on 05-08-2022 Hemoglobin (Bld) [Mass/Vol] 13.8 g/dL 13.0-17.0 [facility] Iron [Mass/volume] in Serum or PlasmaOrdered By: Melissa Wilson on 05-08-2022 Iron [Mass/Vol] 73 ug/dL 40-160 [facility] Iron binding capacity [Mass/ volume] in Serum or PlasmaOrdered By: Melissa Wilson on 05-08-2022 Iron binding capacity [Mass/Vol] 244 ug/dL 255-450 [facility] Iron saturation [Mass Fracti on] in Serum or PlasmaOrdered By: Melissa Wilson on 05-08-2022 Iron saturation [Mass fraction] 29.9 % 20-50 [facility] Lactate dehydrogenase measur ement (enzymatic activity/volume)Ordered By: Melissa Wilson on 05-08-2022 LDH (Unsp spec) [Catalytic activity/Vol] 132 U/L 45-190 [facility] LDH (Unsp spec) [Catalytic activity/Vol] Lactate dehydrogenase measurement (enzymatic activity/volume) 45-190 [facility] Leukocytes [#/volume] correc adalberto for nucleated erythrocytes in Blood by Automated counOrdered By: Melissa Wilson on 05-08-2022 WBC corrected for nucl RBC Auto (Bld) [#/Vol] 2.9 10*3/uL 4.1-10.5 [facility] Lymphocytes Auto (Bld) [#/Vo l]Ordered By: Melissa Wilson on 05-08-2022 Lymphocytes (Bld) [#/Vol] 1.2 10*3/uL 1.00-4.8 [facility] Lymphocytes/100 WBC Auto (Bl d)Ordered By: Melissa Wilson on 05-08-2022 Lymphocytes/100 WBC (Bld) 42.4 % . [facility] MCH Auto (RBC) [Entitic mass ]Ordered By: Melissa Wilson on 05-08-2022 MCH (RBC) [Entitic mass] 27.5 pg 27.5-35.2 [facility] MCHC Auto (RBC) [Mass/Vol]Or dered By: Melissa Wilson on 05-08-2022 MCHC (RBC) [Mass/Vol] 32.3 g/dL 32.5-35.[address] [facility] MCV Auto (RBC) [Entitic vol] Ordered By: Melissa Wilson on 05-08-2022 MCV (RBC) [Entitic vol] 85.2 fL 83.5-101 [facility] Microcytes LM Ql (Bld)Ordere d By: Melissa Wilson on 05-08-2022 Microcytes Ql (Bld) Moderate [facility] Monocytes Auto (Bld) [#/Vol] Ordered By: Melissa Wilson on 05-08-2022 Monocytes (Bld) [#/Vol] 0.4 10*3/uL 0.0-0.8 [facility] Monocytes/100 WBC Auto (Bld) Ordered By: Melissa Wilson on 05-08-2022 Monocytes/100 WBC (Bld) 12.3 % . [facility] Neutrophils Auto (Bld) [#/Vo l]Ordered By: Melissa Wilson on 05-08-2022 Neutrophils (Bld) [#/Vol] 1.3 10*3/uL 1.8-7.7 [facility] Neutrophils/100 WBC Auto (Bl d)Ordered By: Melissa Wilson on 05-08-2022 Neutrophils/100 WBC (Bld) 45.1 % . [facility] No Panel InformationOrdered By: Melissa Wilson on 05-08-2022 Estimated GFR () > 60 mL/Min [facility] Comment on above: GFR estimated refere nce range: According to KDOQI guidelines, <60 ml/min/1.73m2 is sufficient to diagnose a patient with chronic kidney disease. Pharmacy Creatinine Clearance (Chem 71.65 [facility] Nucleated erythrocytes [Pres ence] in Blood by Automated countOrdered By: Melissa Wilson on 05-08-2022 Nucleated RBC Auto Ql (Bld) 0.1 /100{WBC} 0-0.5 [facility] Ovalocyte detectionOrdered B y: Melissa Wilson on 05-08-2022 Ovalocytes LM Ql (Bld) Slight [facility] Ovalocytes LM Ql (Bld) Ovalocyte detection [facility] Platelet adequacy [Presence] in Blood by Light microscopyOrdered By: Melissa Wilson on 05-08-2022 Platelets LM Ql (Bld) Normal Normal [facility] Platelet mean volume Auto (B ld) [Entitic vol]Ordered By: Melissa Wilson on 05-08-2022 Platelet mean volume (Bld) [Entitic vol] 7.8 fL 6.6-10.1 [facility] Platelet morphology finding [Identifier] in BloodOrdered By: Melissa Wilson on 05-08-2022 Platelet morphology finding Nom (Bld) Normal Normal [facility] Platelets Auto (Bld) [#/Vol] Ordered By: Melissa Wilson on 05-08-2022 Platelets (Bld) [#/Vol] 155 10*3/uL 150-450 [facility] Poikilocytosis [Presence] in Blood by Light microscopyOrdered By: Melissa Wilson on 05-08-2022 Poikilocytosis LM Ql (Bld) Slight [facility] Poikilocytosis LM Ql (Bld) Poikilocytosis [Presence] in Blood by Light microscopy [facility] Protein [Mass/volume] in Ser um or PlasmaOrdered By: Melissa Wilson on 05-08-2022 Protein [Mass/Vol] 6.7 g/dL 6.1-7.9 [facility] RBC Auto (Bld) [#/Vol]Ordere d By: Melissa Wilson on 05-08-2022 RBC (Bld) [#/Vol] 5.02 10*6/uL 3.90-5.60 [facility] RBC morphologyOrdered By: Frank Wilson on 05-08-2022 RBC morphology finding Nom (Bld) N/A [facility] Serum or plasma alanine mosher otransferase measurement without P-5'-P (enzymatic activiOrdered By: Melissa Wilson on 05-08-2022 ALT No additional P-5'-P [Catalytic activity/Vol] 16 U/L 10-60 [facility] Serum or plasma albumin/glob ulin mass ratioOrdered By: Melissa Wilson on 05-08-2022 Albumin/Globulin [Mass ratio] 1.1 {ratio} [facility] Serum or plasma alkaline nyla sphatase measurement (enzymatic activity/volume)Ordered By: Melissa Wilson on 05-08-2022 ALP [Catalytic activity/Vol] 115 U/L 32-92 [facility] Serum or plasma anion gap de terminationOrdered By: Melissa Wilson on 05-08-2022 Anion gap [Moles/Vol] 8.7 mmol/L 6.0-15.[address] [facility] Serum or plasma aspartate am inotransferase measurement (enzymatic activity/volume)Ordered By: Melissa Wilson on 05-08-2022 AST [Catalytic activity/Vol] 22 U/L 10-42 [facility] Serum or plasma calcium javan urement (mass/volume)Ordered By: Melissa Wilson on 05-08-2022 Calcium [Mass/Vol] 8.5 mg/dL 8.2-10.2 [facility] Serum or plasma chloride hansa surement (moles/volume)Ordered By: Melissa Wilson on 05-08-2022 Chloride [Moles/Vol] 108 mmol/L 95-114 [facility] Serum or plasma glucose javan urement (mass/volume)Ordered By: Melissa Wilson on 05-08-2022 Glucose [Mass/Vol] 105 mg/dL 70-100 [facility] Comment on above: ADA recommended refe rence rangeRandom Glucose Reference Range is dependent on time and content of last meal. Glucose of more than 200 mg/dL in a nonstressed, ambulatory subject supports the diagnosis of Diabetes Mellitus. Serum or plasma potassium me asurement (moles/volume)Ordered By: Melissa Wilson on 05-08-2022 Potassium [Moles/Vol] 3.6 mmol/L 3.5-5.[address] [facility] Serum or plasma sodium measu rement (moles/volume)Ordered By: Melissa Wilson on 05-08-2022 Sodium [Moles/Vol] 136 mmol/L 136-146 [facility] Serum or plasma total biliru bin measurement (mass/volume)Ordered By: Melissa Wilson on 05-08-2022 Bilirubin [Mass/Vol] 0.3 mg/dL 0.3-1.2 [facility] Serum or plasma total carbon dioxide measurement (moles/volume)Ordered By: Melissa Wilson on 05-08-2022 CO2 [Moles/Vol] 22.9 mmol/L 22.0-30.0 [facility] Serum or plasma urea nitroge n measurement (mass/volume)Ordered By: Melissa Wilson on 05-08-2022 Urea nitrogen [Mass/Vol] 14 mg/dL 9-23 [facility] WBC Auto (Bld) [#/Vol]Ordere d By: Melissa Wilson on 05-08-2022 WBC (Bld) [#/Vol] 2.9 10*3/uL 4.1-10.[address] [facility] [address] Chest High Resolutionon 1 CT Chest High Resolution Normal [facility] [address] [place] Work Phone: CT CHEST HIGH RESOLUTIONo n 05-01-2022 CT CHEST HIGH RESOLUTION Patient Name: VELIA BAGLEY STUDY: CT CHEST HIGH RESOLUTION; 05/01/2022 12:24 pm INDICATION: ground glass changes U09.9: COVID-19 long hauler R93.89: Abnormal CT of the chest R06.02: SOB (shortness of breath) on exertion. COMPARISON: High-resolution CT 06/05/2021, 01/02/2021 CTA chest 12/06/2020 ACCESSION NUMBER(S): [id number] ORDERING CLINICIAN: RICH MAGANA TECHNIQUE: Using helical multidetector technique, volumetric data acquisition of the chest was obtained without intravenous administration of contrast material under the high resolution chest CT protocol. Examination includes contiguous slices through the chest in supine positioning during inspiration, noncontiguous axial slices in supine positioning during expiration and prone positioning during inspiration. FINDINGS: LUNGS AND AIRWAYS: The trachea and central airways are patent. No endobronchial lesion is seen. Persistent diffuse ground-glass and bandlike opacities throughout the bilateral lungs that are overall similar when compared to the 01/02/2021 CT chest. No evidence of traction bronchiectasis or honeycombing. There is no new consolidation, pleural effusion, or pneumothorax. Expiratory imaging demonstrate multifocal air trapping throughout bilateral lungs, consistent with underlying small airway disease such as constrictive bronchiolitis. Prone imaging reveals no additional findings. No discrete lung nodules or masses.Stable punctate calcified granuloma in the right middle lobe. MEDIASTINUM AND MANDI, LOWER NECK AND AXILLA: The visualized thyroid gland is within normal limits. No evidence of thoracic lymphadenopathy by CT criteria. Esophagus appears within normal limits as seen. HEART AND VESSELS: Thoracic aorta is normal in course and caliber. Main pulmonary artery and its branches are normal in caliber. Mild coronary artery calcifications are seen.Please note,the study is not optimized for evaluation of coronary arteries. The cardiac chambers are not enlarged. There is no pericardial effusion seen. UPPER ABDOMEN: Redemonstrated fatty replacement of the pancreas. Otherwise, the visualized subdiaphragmatic structures demonstrate no remarkable findings. CHEST WALL AND OSSEOUS STRUCTURES: Note is made of mild bilateral gynecomastia, again slightly more on the left. Otherwise, the chest wall is within normal limits. No acute osseous pathology. Rib deformity of the right anterior 4th and lateral 9th rib likely remote injury.There are no suspicious osseous lesions.Mild multilevel degenerative changes within visualized spine. IMPRESSION: 1. 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 2. Findings of multifocal air trapping, which is more conspicuous/better visualized on present examination and likely represent underlying small airway disease such as constrictive bronchiolitis. Correlation with PFTs is recommended. 3. No acute consolidation, pleural effusion or pneumothorax. 4. Redemonstrated mild coronary artery calcifications, indicating the presence of coronary artery disease. If the patient has associated symptoms recommend management as per chest pain guidelines (e.g. https://doi.org/10.1161/ CIR.1171283245544302). If the patient is asymptomatic consider reviewing modifiable cardiovascular risk factors and managing as per guidelines for primary prevention (e.g. https://doi.org/10.1161/ CIR.2769606995286302) I personally reviewed the images/study and I agree with the findings as stated. This study was interpreted at [facility], [place], [place]. Electronically signed by: SAW PIÑA MD Normal [facility] Procedure (Neurology)on 04-03 Procedure (Neurology) Patient Instructio ns Please do not rub areas for 24 [...] Please call if you have difficulty swallowing. You received Toradol today for your severe headache. We are going to continue with 5 day of pills starting tomorrow to break your headache cycle. Take 1 pill with breakfast lunch dinner and bedtime for 5 days. Take with food. Try not to take your triptan or antiinflammatory during this time. If you have any nausea or diarrhea with the medicine stop and call on the next business day. Diagnoses/Problems Assessed Chronic migraine without aura, with intractable migraine, so stated, with status migrainosus (346.73) (G43.711) Orders Chronic migraine without aura, with intractable migraine, so stated, with status migrainosus Start: Ketorolac Tromethamine 10 MG Oral Tablet; TAKE 1 TABLET BY MOUTH EVERY 6 HOURS WITH FOOD Administered: Ketorolac Tromethamine 60 MG/2ML Intramuscular Solution Reason For Visit VELIA BAGLEY is being seen for Botulinum Toxin (Botox) Injection. Chief Complaint Every 90 day Botox injections onobotulinumtoxinA toxin A ([facility]- [id number] 01) History of Present IllnessToradol IM after Botox to prevent injection triggered Migraines Vitals Vital Signs Recorded: [id number] 02:35PM [id number] F Heart Rate80 [id number], LUE, Sitting [id number], LUE, Sitting Height5 ft 9 in Procedure Procedure: Botox injection. Indication: chronic migraine headaches. Risk, benefits, alternatives, risk of worsening pain, risk of URI, risk of dysphagia, risk of focal weakness and risk of facial paresis were discussed with the patient. Verbal consent was obtained prior to the procedure. Prior to the start of the procedure a time out was taken and the identity of the patient was confirmed via name and date of with the patient. The correct site and the procedure to be performed were confirmed and the site marked as appropriate. The correct side was confirmed if applicable. The positioning of the patient was verified. The availability of the correct equipment was verified. Betadine was used to prep the area. Procedure Note: The patient was placed in the upright and supine position. 200 units of Botulinum Toxin were injected bilaterally into the it network engineer muscle, procerus muscle, frontalis muscle., temporalis muscle, occipitalis muscle, cervical paraspinal muscle. Lot number: . Expiration date: . Post-Procedure: the patient tolerated the procedure well. Complications: None. Follow-up in the office in 6 week(s). Signatures Electronically signed by : Jodie Matthews MD; Apr 16 2022 4:58PM EST (Author) Normal [facility] IGGon 04-15-2022 IgG [Mass/Vol] 1450 mg/dL Normal 700 - 1600 [facility] Comment on above: Result Comment: MONO CLONAL PROTEINS MAY CAUSE FALSELY LOW RESULTS IN THIS ASSAY. SERUM PROTEIN ELECTROPHORESIS SHOULD BE DONE THE FIRST TEST TO EVALUATE MONOCLONAL GAMMOPATHY. Performed By: #### I GG #### [facility] [address] [place] [address] Immunoglobulin G Level, Seru mon 04-15-2022 IgG [Mass/Vol] 1450 mg/dL 700 - 1600 [facility] [address] Work Phone: Comment on above: MONOCLONAL PROTEINS MAY CAUSE FALSELY LOWRESULTS IN THIS ASSAY. SERUM PROTEINELECTROPHORESIS SHOULD BE DONE THEFIRST TEST TO EVALUATE MONOCLONAL GAMMOPATHY. 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) (J44.9) Orders Anti-pneumococcal polysaccharide antibody deficiency Immunoglobulin G Level, Serum; Status:Active; Requested for:14Apr2022; Asthma with COPD Renew: Levalbuterol Tartrate 45 MCG/ACT Inhalation Aerosol; INHALE 2 PUFFS EVERY 4 HOURS NEEDED Administer: Fasenra 30 MG/ML Subcutaneous Solution Prefilled Syringe; INJECT 1 SYRINGE (30MG) SUBCUTANEOUSLY EVERY 8 WEEKS Asthma with COPD, PMH: History of cardiac arrhythmia Renew: Levalbuterol HCl - 1.25 MG/0.5ML Inhalation Nebulization Solution; USE 1 VIAL Every 4 hours Patient Discussion/Summary Continue Gamunex C 40 grams IV Q 4 weeks with 125 mg Solu-Medrol before infusion. Have IgG trough before infusion. We will call you with results and further recommendations. He received Fasenra today. Use rescue inhaler as needed. Refilled today. Continue followup with Dr. Magana. Continue flutter valve to help with mucus. Use nebulizer at least twice a day. Try to get a sputum culture. Discuss with Dr. Magana whether you should have COVID booster. Influenza was administered today. Follow up in 2 months unless symptoms worsen prior. By signing my name below, I, Ignrid Lengyel,Scribe, attest that this documentation has been prepared under the direction and in the presence of Courtney Brown MD. All medical record entries made by the Donnaibe were at my direction and personally dictated by me. I have reviewed the chart and agree that the record accurately reflects my personal performance of the history, physical exam, discussion and plan. 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 Tolerating infusions well. Next infusion is04/29/2022. He had 5 sticks and still could not get blood drawn. After last visit, he was treated for Staph aureus and Streptococcus agalactiae. Continue Gamunex C 40 grams IV Q 4 weeks with 125 mg Solu-Medrol before infusion. Have IgG trough before infusion. We will call you with results and further recommendations. 2. Asthma/COPD overlap - Chronic, controlled. Managed by Dr. Magana. He received Fasenra today. Use rescue inhaler as needed. Refilled today. Continue followup with Dr. Magana. 3. Cough - Chronic, uncontrolled. Continue flutter valve to help with mucus. Use nebulizer at least twice a day. Try to get a sputum culture. 4. Health maintenance - Stable. Discuss with Dr. Magana whether he should have his COVID booster. Influenza was administered today. Follow up in 2 months unless symptoms worsen prior. High risk of disease progression exists. Chief Complaint Followup visit for antipneumococcal polysaccharide antibody deficiency History of Present Illness He is accompanied by his Since last visit, 02/24/2022, patient reports he has been tripping more recently, but passed out at [facility] and his arms were not outstretched to protect himself. He was taken to [facility] where he received stitches. He saw orthopedics to rule out hip trauma or reinjury. He denies lightheadedness or cardiac issues currently. He was in the ED Thanksgiving and Dr. Rayo made copies of her records. He will be seeing Dr. Matthews on 04/16/2022, for evaluation of the falls. He had a cough over the weekend and has not completed a sputum sample, but has the containers. He feels much better after taking antibiotics. He admits the flutter valve did help, but has persistent chest congestion though not as bad as prior. He is using his nebulizer about once a day, but not as much as he should. He continues Trelegy, which works well but leaves a bad taste in his mouth. Patient has a colonoscopy and anoscopy at [place] secondary to his iron deficiency. He saw the ABSTRACTER, Video Control Engineer, once. He sees Dr. Magana, Preparation Room Worker, tomorrow. His next infusion is scheduled 04/29/2022. He states the last infusion, he had to be stuck 5 times and still could not get blood though this is not his norm. He received a tetanus vaccine but not his influenza and would like one. He was asked in the ED why he has not received the second booster. He responded because he was in bed after the last one for 2 weeks. Review of Systems See attached Review of Systems in HPI. 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 Normal [facility] IGG SUBCLASSES (1-4) AND TOT Lizty 04-09-2022 IgG, Subclass [address] [facility] Comment on above: Result Comment: Test not performed. Insufficient specimen to perform or complete analysis. contacted Lindsay at your facility on 04-09-2022 Performed By: #### I GGSB #### [id number] [place], [place] [address]Dr. Carey Fisher IgG, Subclass [address] [facility] Comment on above: Result Comment: Test not performed. Insufficient specimen to perform or complete analysis. contacted Lindsay at your facility on 04-09-2022 Performed By: #### I GGSB #### [id number] [place] [address]Dr. Carey Fisher IgG, Subclass [address] [facility] Comment on above: Result Comment: Test not performed. Insufficient specimen to perform or complete analysis. contacted Lindsay at your facility on 04-09-2022 Performed By: #### I GGSB #### [id number] [place] [id number]. Carey Fisher IgG, Subclass [address] [facility] Comment on above: Result Comment: Test not performed. Insufficient specimen to perform or complete analysis. contacted Lindsay at your facility on 04-09-2022 Performed By: #### I GGSB #### [id number] [place] [address]Dr. Carey Fisher Immunoglobulin G, Qn, Serum 1059 mg/dL Normal [id number] [facility] Comment on above: Performed By: #### I GGSB #### [id number] [place] [address]Dr. Jennyes Fisher Albumin [Mass/volume] in Ser um or PlasmaOrdered By: Shari Haddad on 04-05-2022 Albumin [Mass/Vol] 3.6 g/dL 3.2-5.5 [facility] Anisocytosis LM Ql (Bld)Orde red By: Shari Haddad on 04-05-2022 Anisocytosis Ql (Bld) Slight [facility] Basophils Auto (Bld) [#/Vol] Ordered By: Shari Haddad on 04-05-2022 Basophils (Bld) [#/Vol] 0.0 10*3/uL 0.0-0.2 [facility] Basophils/100 WBC Auto (Bld) Ordered By: Shari Haddad on 04-05-2022 Basophils/100 WBC (Bld) 0.3 % . [facility] Creatinine and Glomerular fi ltration rate.predicted panel (S/P/Bld)Ordered By: Shari Haddad on 04-05-2022 Creatinine [Mass/Vol] 1.08 mg/dL 0.64-1.[address] [facility] Eosinophils Auto (Bld) [#/Vo l]Ordered By: Shari Haddad on 04-05-2022 Eosinophils (Bld) [#/Vol] 0.0 10*3/uL 0.0-0.45 [facility] Eosinophils/100 WBC Auto (Bl d)Ordered By: Shari Haddad on 04-05-2022 Eosinophils/100 WBC (Bld) 0.0 % . [facility] Erythrocyte distribution wid th Auto (RBC) [Ratio]Ordered By: Shari Haddad on 04-05-2022 Erythrocyte distribution width (RBC) [Ratio] 25.3 % 12.0-14.8 [facility] Estimated glomerular filtrat ion rate (GFR) non- AmericanOrdered By: Shari Haddad on 04-05-2022 GFR/1.73 sq M.predicted among non-blacks MDRD (S/P/Bld) [Vol rate/Area] > 60 mL/Min [facility] Globulin Calc (S) [Mass/Vol] Ordered By: Shari Haddad on 04-05-2022 Globulin (S) [Mass/Vol] 3.4 g/dL [facility] Hematocrit Auto (Bld) [Volum e fraction]Ordered By: Shari Haddad on 04-05-2022 Hematocrit (Bld) [Volume fraction] 41.4 % 38.8-50.0 [facility] Hemoglobin [Mass/volume] in BloodOrdered By: Shari Haddad on 04-05-2022 Hemoglobin (Bld) [Mass/Vol] 13.1 g/dL 13.0-17.0 [facility] Hypochromia LM Ql (Bld)Order ed By: Shari Haddad on 04-05-2022 Hypochromia Ql (Bld) Slight [facility] Leukocytes [#/volume] correc adalberto for nucleated erythrocytes in Blood by Automated counOrdered By: Shari Haddad on 04-05-2022 WBC corrected for nucl RBC Auto (Bld) [#/Vol] 4.6 10*3/uL 4.1-10.5 [facility] Lymphocytes Auto (Bld) [#/Vo l]Ordered By: Shari Haddad on 04-05-2022 Lymphocytes (Bld) [#/Vol] 1.6 10*3/uL 1.00-4.8 [facility] Lymphocytes/100 WBC Auto (Bl d)Ordered By: Shari Haddad on 04-05-2022 Lymphocytes/100 WBC (Bld) 34.6 % . [facility] MCH Auto (RBC) [Entitic mass ]Ordered By: Shari Haddad on 04-05-2022 MCH (RBC) [Entitic mass] 25.2 pg 27.5-35.2 [facility] MCHC Auto (RBC) [Mass/Vol]Or dered By: Shari Haddad on 04-05-2022 MCHC (RBC) [Mass/Vol] 31.8 g/dL 32.5-35.[address] [facility] MCV Auto (RBC) [Entitic vol] Ordered By: Shari Haddad on 04-05-2022 MCV (RBC) [Entitic vol] 79.3 fL 83.5-101 [facility] Microcytes LM Ql (Bld)Ordere d By: Shari Haddad on 04-05-2022 Microcytes Ql (Bld) Slight [facility] Monocyte distribution width [Entitic volume] in Blood by AutomatedOrdered By: Shari Haddad on 04-05-2022 Monocyte distribution width Auto (Bld) [Entitic vol] 20.17 % 0.00-20.00 [facility] Comment on above: For adults in ED, MD W > 20.0 may be associated with a higher risk of sepsis during the first 12 hrs of hospital admission Monocytes Auto (Bld) [#/Vol] Ordered By: Shari Haddad on 04-05-2022 Monocytes (Bld) [#/Vol] 0.4 10*3/uL 0.0-0.8 [facility] Monocytes/100 WBC Auto (Bld) Ordered By: Shari Haddad on 04-05-2022 Monocytes/100 WBC (Bld) 8.9 % . [facility] Neutrophils Auto (Bld) [#/Vo l]Ordered By: Shari Haddad on 04-05-2022 Neutrophils (Bld) [#/Vol] 2.6 10*3/uL 1.8-7.7 [facility] Neutrophils/100 WBC Auto (Bl d)Ordered By: Shari Haddad on 04-05-2022 Neutrophils/100 WBC (Bld) 56.2 % . [facility] No Panel InformationOrdered By: Shari Haddad on 04-05-2022 Estimated GFR () > 60 mL/Min [facility] Comment on above: GFR estimated refere nce range: According to KDOQI guidelines, <60 ml/min/1.73m2 is sufficient to diagnose a patient with chronic kidney disease. Pharmacy Creatinine Clearance (Chem 71.83 [facility] Nucleated erythrocytes [Pres ence] in Blood by Automated countOrdered By: Shari Haddad on 04-05-2022 Nucleated RBC Auto Ql (Bld) 0.1 /100{WBC} 0-0.5 [facility] Ovalocyte detectionOrdered B y: Shari Haddad on 04-05-2022 Ovalocytes LM Ql (Bld) Slight [facility] Platelet adequacy [Presence] in Blood by Light microscopyOrdered By: Shari Haddad on 04-05-2022 Platelets LM Ql (Bld) Normal [facility] Platelet mean volume Auto (B ld) [Entitic vol]Ordered By: Shari Haddad on 04-05-2022 Platelet mean volume (Bld) [Entitic vol] 8.4 fL 6.6-10.1 [facility] Platelet morphology finding [Identifier] in BloodOrdered By: Shari Haddad on 04-05-2022 Platelet morphology finding Nom (Bld) Normal Normal [facility] Platelets Auto (Bld) [#/Vol] Ordered By: Shari Haddad on 04-05-2022 Platelets (Bld) [#/Vol] 189 10*3/uL 150-450 [facility] Poikilocytosis [Presence] in Blood by Light microscopyOrdered By: Shari Haddad on 04-05-2022 Poikilocytosis LM Ql (Bld) Slight [facility] Polychromasia [Presence] in Blood by Light microscopyOrdered By: Shari Haddad on 04-05-2022 Polychromasia LM Ql (Bld) Slight [facility] Protein [Mass/volume] in Ser um or PlasmaOrdered By: Shari Haddad on 04-05-2022 Protein [Mass/Vol] 7.0 g/dL 6.1-7.9 [facility] RBC Auto (Bld) [#/Vol]Ordere d By: Shari Haddad on 04-05-2022 RBC (Bld) [#/Vol] 5.22 10*6/uL 3.90-5.60 [facility] RBC morphologyOrdered By: Niraj Haddad on 04-05-2022 RBC morphology finding Nom (Bld) N/A [facility] Serum or plasma alanine mosher otransferase measurement without P-5'-P (enzymatic activiOrdered By: Shari Haddad on 04-05-2022 ALT No additional P-5'-P [Catalytic activity/Vol] 15 U/L 10-60 [facility] Serum or plasma albumin/glob ulin mass ratioOrdered By: Shari Haddad on 04-05-2022 Albumin/Globulin [Mass ratio] 1.1 {ratio} [facility] Serum or plasma alkaline nyla sphatase measurement (enzymatic activity/volume)Ordered By: Shari Haddad on 04-05-2022 ALP [Catalytic activity/Vol] 89 U/L 32-92 [facility] Serum or plasma anion gap de terminationOrdered By: Shari Haddad on 04-05-2022 Anion gap [Moles/Vol] 11.4 mmol/L 6.0-15.0 [facility] Serum or plasma aspartate am inotransferase measurement (enzymatic activity/volume)Ordered By: Shari Haddad on 04-05-2022 AST [Catalytic activity/Vol] 20 U/L 10-42 [facility] Serum or plasma calcium javan urement (mass/volume)Ordered By: Shari Haddad on 04-05-2022 Calcium [Mass/Vol] 8.5 mg/dL 8.2-10.2 [facility] Serum or plasma chloride hansa surement (moles/volume)Ordered By: Shari Haddad on 04-05-2022 Chloride [Moles/Vol] 105 mmol/L 95-114 [facility] Serum or plasma ethanol javan urement (mass/volume)Ordered By: Shari Haddad on 04-05-2022 Ethanol [Mass/Vol] mg/dL [facility] Ethanol [Mass/Vol] TNP [facility] Comment on above: Test not performed Serum or plasma glucose javan urement (mass/volume)Ordered By: Shari Haddad on 04-05-2022 Glucose [Mass/Vol] 86 mg/dL 70-100 [facility] Comment on above: ADA recommended refe rence rangeRandom Glucose Reference Range is dependent on time and content of last meal. Glucose of more than 200 mg/dL in a nonstressed, ambulatory subject supports the diagnosis of Diabetes Mellitus. Serum or plasma potassium me asurement (moles/volume)Ordered By: Shari Haddad on 04-05-2022 Potassium [Moles/Vol] 4.2 mmol/L 3.5-5.[address] [facility] Serum or plasma sodium measu rement (moles/volume)Ordered By: Shari Haddad on 04-05-2022 Sodium [Moles/Vol] 134 mmol/L 136-146 [facility] Serum or plasma total biliru bin measurement (mass/volume)Ordered By: Shari Haddad on 04-05-2022 Bilirubin [Mass/Vol] 0.2 mg/dL 0.3-1.2 [facility] Serum or plasma total carbon dioxide measurement (moles/volume)Ordered By: Shari Haddad on 04-05-2022 CO2 [Moles/Vol] 21.8 mmol/L 22.0-30.0 [facility] Serum or plasma urea nitroge n measurement (mass/volume)Ordered By: Shari Haddad on 04-05-2022 Urea nitrogen [Mass/Vol] 17 mg/dL 01-24 [facility] Teardrop cell detectionOrder ed By: Shari Haddad on 04-05-2022 Dacrocytes LM Ql (Bld) Slight [facility] Troponin I.cardiac [Mass/vol ume] in Serum or Plasma by High sensitivity methodOrdered By: Shari Haddad on 04-05-2022 Troponin I.cardiac High sensitivity method [Mass/Vol] 7 pg/mL 0-20 [facility] WBC Auto (Bld) [#/Vol]Ordere d By: Shari Haddad on 04-05-2022 WBC (Bld) [#/Vol] 4.6 10*3/uL 4.1-10.5 [facility] PROF 14(COMP METB)on 022 Albumin [Mass/Vol] 3.7 g/dL Normal 3.4-5.0 [facility] Comment on above: Performed By: #### C MP #### [id number] [place] [address]DrSidni Fisher Albumin/Globulin [Mass ratio] 1.1 {ratio} Normal [facility] Comment on above: Performed By: #### C MP #### [id number] [place] [address]Dr. Carey Fisher ALP [Catalytic activity/Vol] 114 U/L Normal 46-116 The Comment on above: Performed By: #### C MP #### [id number] [place] [address]Dr. Carey Fisher ALT [Catalytic activity/Vol] 21 U/L Normal 16-63 [facility] Comment on above: Performed By: #### C MP #### [id number] [place] [address]DrSindi Fisher Anion gap [Moles/Vol] 16.2 mmol/L Normal [facility] Comment on above: Performed By: #### C MP #### [id number] [place], [place] [address]Dr. Carey Fisher AST [Catalytic activity/Vol] 20 U/L Normal 15-37 [facility] Comment on above: Performed By: #### C MP #### [id number] [place], [place] [address]Dr. Carey Fisher Bilirubin [Mass/Vol] 0.2 mg/dL Normal 0.2-1.0 [facility] Comment on above: Performed By: #### C MP #### [id number] [place], [place] [address]Dr. Carey Fisher Calcium [Mass/Vol] 8.2 mg/dL Critically low 8.5-10.1 [facility] Comment on above: Performed By: #### C MP #### [id number] [place], [place] [address]Dr. Carey Fisher Chloride [Moles/Vol] 105 mmol/L Normal 98-107 [facility] Comment on above: Performed By: #### C MP #### [id number] [place], [place] [address]Dr. Carey Fisher CO2 [Moles/Vol] 20.8 mmol/L Critically low 21.0-32.0 [facility] Comment on above: Performed By: #### C MP #### [id number] [place], [place] [address]Dr. Carey Fisher Creatinine [Mass/Vol] 1.02 mg/dL Normal 0.70-1.30 [facility] Comment on above: Performed By: #### C MP #### [id number] [place], [place] [address]Dr. Carey Fisher EGFR-AF SYRIAN >60 Normal >=60 [facility] Comment on above: Performed By: #### C MP #### [id number] [place], [place] [address]Dr. Carey Fisher EGFR-NON AF SYRIAN >60 Normal >=60 [facility] Comment on above: Performed By: #### C MP #### [id number] [place] [address]Dr. Jennyes Phillip Globulin (S) [Mass/Vol] 3.3 g/dL Normal [facility] Comment on above: Performed By: #### C MP #### [id number] [place] [address]Dr. Carey Fisher Glucose [Mass/Vol] 72 mg/dL Critically low 74-106 Th [facility] Comment on above: Performed By: #### C MP #### [id number] [place] [address]Dr. Carey Fisher Potassium [Moles/Vol] 4.0 mmol/L Normal 3.5-5.1 [facility] Comment on above: Performed By: #### C MP #### [id number] [place], [place] [address]Dr. Carey Fisher Protein [Mass/Vol] 7.0 g/dL Normal 6.4-8.2 [facility] Comment on above: Performed By: #### C MP #### [id number] [place], [place] [address]Dr. Carey Fisher Sodium [Moles/Vol] 138 mmol/L Normal 136-145 [facility] Comment on above: Performed By: #### C MP #### [id number] [place], [place] [address]Dr. Carey Fisher Urea nitrogen [Mass/Vol] 27.0 mg/dL Critically high 7.0-18.0 [facility] Comment on above: Performed By: #### C MP #### [id number] [place], [place] [address]Dr. Carey Fisher Urea nitrogen/Creatinine [Mass ratio] 26.5 mg/mg Normal [facility] Comment on above: Performed By: #### C MP #### [id number] [place], [place] [address]Dr. Carey Fisher CT CSPINE WO CONon 2 CT CSPINE WO CON EXAMINATION: CT CSPI NE WO CON HISTORY: Fall UNSPECIFIED INJURY OF HEAD, INITIAL ENCOUNTER COMPARISON: CT head 03/27/2022 TECHNIQUE: CT Cervical spine without IV contrast. Coronal and sagittal reformations were performed. Dose reduction techniques were achieved by using automated exposure control and/or adjustment of mA and/or kV according to patient size and/or use of iterative reconstruction technique. FINDINGS: Alignment: Cervical lordosis is mildly accentuated likely related to position. There is 2 millimeters of anterolisthesis at C7-T1. Osseous structures: No traumatic fractures of subluxation is noted. Osseous mineralization is unremarkable. A disc osteophyte complex at C7-T1 causes mild spinal stenosis. Prevertebral soft tissues: No prevertebral soft tissue swelling is noted. Soft tissues of the neck: The paraspinal soft tissues are normal in appearance. The lung apices demonstrate diffuse reticulonodular opacities. IMPRESSION: No acute osseous abnormality of the cervical spine. There is 2 millimeters of anterolisthesis at C7-T1 with poor delineation of the T1 vertebral body which may be related to technical factors. If there is concern for thoracic spinal injury CT of the thoracic spine can be considered for further evaluation. Limited evaluation of the lung apices demonstrate diffuse reticulonodular opacities which may represent infectious or inflammatory etiology. CT chest can be considered for further evaluation as clinically warranted. Electronically authenticated by: RACHELLE CHAVEZ Date: 2022-03-28 00:[address] HEAD WO CONon 03-28-2022 CT HEAD WO CON EXAMINATION: CT HEAD WO CON HISTORY: HEADACHE fall hit head right side COMPARISON: CT head from 06/26/2018 TECHNIQUE: CT examination of the head without IV contrast. Dose reduction techniques were achieved by using automated exposure control and/or adjustment of mA and/or kV according to patient size and/or use of iterative reconstruction technique. FINDINGS: The ventricles, sulci, and remaining CSF containing spaces maintain age-appropriate volume and symmetry. No herniation or hydrocephalus. The virgen matter/white matter differentiation is maintained throughout. No CT evidence of contemporary infarction. No acute intracranial hemorrhage or parenchymal mass. The calvarium and skull base are intact. The pneumatized portions of the skull are clear. IMPRESSION: No acute intracranial abnormality. Electronically authenticated by: DUSTIN GRAVES Date: 2022-03-27 23:47 Normal The Basophils Auto (Bld) [#/Vol] Ordered By: Alina Moran on 03-13-2022 Basophils (Bld) [#/Vol] 0.0 10*3/uL 0.0-0.2 [facility] Basophils/100 WBC Auto (Bld) Ordered By: Alina Moran on 03-13-2022 Basophils/100 WBC (Bld) 0.2 % . [facility] CT biopsyOrdered By: Alina jacobs on 03-13-2022 Transferrin [Mass/Vol] 262 mg/dL 180-380 [facility] Eosinophils Auto (Bld) [#/Vo l]Ordered By: Alina Moran on 03-13-2022 Eosinophils (Bld) [#/Vol] 0.0 10*3/uL 0.0-0.45 [facility] Eosinophils/100 WBC Auto (Bl d)Ordered By: Alina Moran on 03-13-2022 Eosinophils/100 WBC (Bld) 0.0 % . [facility] Erythrocyte distribution wid th Auto (RBC) [Ratio]Ordered By: Alina Moran on 03-13-2022 Erythrocyte distribution width (RBC) [Ratio] 28.1 % 12.0-14.8 [facility] Ferritin [Mass/volume] in Se rum or PlasmaOrdered By: Alina Moran on 03-13-2022 Ferritin [Mass/Vol] 20.4 ng/mL 23.9-336.2 [facility] Hematocrit Auto (Bld) [Volum e fraction]Ordered By: Alina Moran on 03-13-2022 Hematocrit (Bld) [Volume fraction] 43.2 % 38.8-50.0 [facility] Hemoglobin [Mass/volume] in BloodOrdered By: Alina Moran on 03-13-2022 Hemoglobin (Bld) [Mass/Vol] 13.6 g/dL 13.0-17.0 [facility] Hypochromia LM Ql (Bld)Order ed By: Alina Moran on 03-13-2022 Hypochromia Ql (Bld) Slight [facility] Hypochromia Ql (Bld) Hypochromia [Presen ce] in Blood by Light microscopy [facility] Iron [Mass/volume] in Serum or PlasmaOrdered By: Alina Mroan on 03-13-2022 Iron [Mass/Vol] 51 ug/dL 40-160 [facility] Iron binding capacity [Mass/ volume] in Serum or PlasmaOrdered By: Alina Moran on 03-13-2022 Iron binding capacity [Mass/Vol] 367 ug/dL 255-450 [facility] Iron saturation [Mass Fracti on] in Serum or PlasmaOrdered By: Alina Moran on 03-13-2022 Iron saturation [Mass fraction] 13.0 % 20-50 [facility] Laboratory - Hematology and Cell countsOrdered By: Alina Moran on 03-13-2022 Nucleated RBC/100 WBC (Bld) [Ratio] 0.1 % 0-0.5 [facility] Leukocytes [#/volume] in Blo od by Automated countOrdered By: Alina Moran on 03-13-2022 WBC (Bld) [#/Vol] 4.5 10*3/uL 4.5-11.0 [facility] Lymphocytes Auto (Bld) [#/Vo l]Ordered By: Alina Moran on 03-13-2022 Lymphocytes (Bld) [#/Vol] 1.2 10*3/uL 1.00-4.8 [facility] Lymphocytes/100 WBC Auto (Bl d)Ordered By: Alina Moran on 03-13-2022 Lymphocytes/100 WBC (Bld) 26.1 % . [facility] MCH Auto (RBC) [Entitic mass ]Ordered By: Alina Moran on 03-13-2022 MCH (RBC) [Entitic mass] 24.8 pg 27.5-35.2 [facility] MCHC Auto (RBC) [Mass/Vol]Or dered By: Alina Moran on 03-13-2022 MCHC (RBC) [Mass/Vol] 31.6 g/dL 32.5-35.[address] [facility] MCV Auto (RBC) [Entitic vol] Ordered By: Alina Moran on 03-13-2022 MCV (RBC) [Entitic vol] 78.5 fL 83.5-101 [facility] Microcytes LM Ql (Bld)Ordere d By: Alina Moran on 03-13-2022 Microcytes Ql (Bld) Slight [facility] Monocytes Auto (Bld) [#/Vol] Ordered By: Alina Moran on 03-13-2022 Monocytes (Bld) [#/Vol] 0.3 10*3/uL 0.0-0.8 [facility] Monocytes/100 WBC Auto (Bld) Ordered By: Alina Moran on 03-13-2022 Monocytes/100 WBC (Bld) 7.6 % . [facility] Neutrophils Auto (Bld) [#/Vo l]Ordered By: Alina Moran on 03-13-2022 Neutrophils (Bld) [#/Vol] 3.0 10*3/uL 1.8-7.7 [facility] Neutrophils/100 WBC Auto (Bl d)Ordered By: Alina Moran on 03-13-2022 Neutrophils/100 WBC (Bld) 66.1 % . [facility] Platelet adequacy [Presence] in Blood by Light microscopyOrdered By: Alina Moran on 03-13-2022 Platelets LM Ql (Bld) Normal Normal [facility] Platelet mean volume Auto (B ld) [Entitic vol]Ordered By: Alina Moran on 03-13-2022 Platelet mean volume (Bld) [Entitic vol] 8.5 fL 6.6-10.1 [facility] Platelet morphology finding [Identifier] in BloodOrdered By: Alina Moran on 03-13-2022 Platelet morphology finding Nom (Bld) Normal Normal [facility] Platelets Auto (Bld) [#/Vol] Ordered By: Alina Moran on 03-13-2022 Platelets (Bld) [#/Vol] 223 10*3/uL 150-450 [facility] RBC Auto (Bld) [#/Vol]Ordere d By: Alina Moran on 03-13-2022 RBC (Bld) [#/Vol] 5.50 10*6/uL 3.90-5.60 [facility] RBC morphologyOrdered By: Louis Moran on 03-13-2022 RBC morphology finding Nom (Bld) N/A [facility] CULTURE SPUTUMon 03-10-2022 CULTURE SPUTUM Isolate 1 Serratia marcescens Light growth of Isolate 2 Nina albicans Moderate growth of ORGANISM 1 Serratia marcescens ANTIBIOTIC M.I.C RX STATUS Cefazolin >=64 R F Ceftazidime <=1 S F Ceftriaxone <=1 S F Ertapenem <=0.5 S F Amikacin <=2 S F Gentamicin <=1 S F Tobramycin <=1 S F Ciprofloxacin <=0.25 S F Levofloxacin <=0.12 S F Trimethoprim/Sulfamethox azole <=20 S F Normal The Comment on above: Performed By: #### S PUTCX #### Laboratory [address] [place] [address] Dr. Carey Fisher SPUTUM GRAM STAINon 03-07-20 COMMENTS [facility] Comment on above: Performed By: #### S PUTGS #### Laboratory [address] [place] [address] Dr. Carey Fisher DIPHTHEROIDS Normal [facility] Comment on above: Performed By: #### S PUTGS #### Laboratory [address] [place] [address] Dr. Carey Fisher EPITHELIALS <25 Normal [facility] Comment on above: Performed By: #### S PUTGS #### Laboratory [address] [address] [address] Carey Fisher FUNGAL ELEMENTS MODERATE Normal [facility] Comment on above: Performed By: #### S PUTGS #### Laboratory [address] [place] [address] Dr. Carey MARTINEZ NEG BACILLI FEW Normal [facility] Comment on above: Performed By: #### S PUTGS #### Laboratory [address] [place] [address] Dr. Carey MARTINEZ NEG DIPPLOCOCCI [facility] Comment on above: Performed By: #### S PUTGS #### Laboratory [address] [place] [address] Dr. Carey MARTINEZ POS BACILLI [facility] Comment on above: Performed By: #### S PUTGS #### Laboratory [address] [place] [address] Dr. Carey Fisher GRAM POSITIVE COCCI Normal [facility] Comment on above: Performed By: #### S PUTGS #### Laboratory [address] [place] [address] Dr. Carey Fisher WBC (Bld) [#/Vol] 10*3/uL Normal [facility] Comment on above: Performed By: #### S PUTGS #### Laboratory [address] [place] [address] Dr. Carey Fisher CULTURE SPUTUMon 03-05-2022 CULTURE SPUTUM Isolate 1 Staphylococcus aureus Heavy growth of Isolate 2 Streptococcus agalactiae Heavy growth of ORGANISM 1 Staphylococcus aureus ANTIBIOTIC M.I.C RX STATUS Beta-Lactamase Pos POS F Benzylpenicillin >=0.5 R F Gentamicin <=0.5 S F Ciprofloxacin <=0.5 S F Levofloxacin 0.25 S F Moxifloxacin <=0.25 S F Erythromycin 4 R F Clindamycin <=0.25 R F Quinupristin/Dalfopristi n <=0.25 S F Linezolid 2 S F Vancomycin <=0.5 S F Tetracycline 2 S F Rifampicin <=0.5 S F Trimethoprim/Sulfamethox azole <=10 S F Oxacillin 0.5 S F ORGANISM 2 Streptococcus agalactiae ANTIBIOTIC M.I.C RX STATUS Benzylpenicillin <=0.06 S F Ampicillin <=0.25 S F Cefotaxime <=0.12 S F Ceftriaxone <=0.12 S F Levofloxacin 0.5 S F Erythromycin 2 R F Clindamycin <=0.25 S F Linezolid <=2 S F Vancomycin 0.5 S F Tetracycline >=16 R F Normal [facility] Comment on above: Performed By: #### S PUTCX #### Laboratory [address] [place] [address] Dr. Carey Fisher CULTURE SPUTUMon 03-02-2022 CULTURE SPUTUM Isolate 1 Staphylococcus aureus Moderate growth of ORGANISM 1 Staphylococcus aureus ANTIBIOTIC M.I.C RX STATUS Beta-Lactamase Neg NEG F Benzylpenicillin >=0.5 R F Gentamicin <=0.5 S F Ciprofloxacin <=0.5 S F Levofloxacin <=0.12 S F Moxifloxacin <=0.25 S F Erythromycin >=8 R F Clindamycin <=0.25 R F Quinupristin/Dalfopristi n <=0.25 S F Linezolid 2 S F Vancomycin 1 S F Tetracycline >=16 R F Rifampicin <=0.5 S F Trimethoprim/Sulfamethox azole <=10 S F Oxacillin <=0.25 S F Normal [facility] Comment on above: Performed By: #### S PUTCX #### Laboratory [address] [place] [address] Dr. Carey Fisher SPUTUM GRAM STAINon 03-02-20 COMMENTS Normal [facility] Comment on above: Performed By: #### A REAFIV #### Laboratory [address] [place] [address] Dr. Carey Fisher DIPHTHEROIDS [facility] Comment on above: Performed By: #### A REAFIV #### Laboratory [address] [place] [address] Dr. Carey Fisher EPITHELIALS <25 [facility] Comment on above: Performed By: #### A REAFIV #### Laboratory [address] [address] [address] Carey Fisher FUNGAL ELEMENTS FEW [facility] Comment on above: Performed By: #### A REAFIV #### Laboratory [address] [place] [address] Dr. Carey Fisher GRAM NEG BACILLI [facility] Comment on above: Performed By: #### A REAFIV #### Laboratory [address] [place] [address] Dr. Carey MARTINEZ NEG DIPPLOCOCCI [facility] Comment on above: Performed By: #### A REAFIV #### Laboratory [address] [place] [address] Dr. Carey Fisher GRAM POS BACILLI [facility] Comment on above: Performed By: #### A REAFIV #### Laboratory [address] [place] [address] Dr. Carey Fisher GRAM POSITIVE COCCI FEW Normal [facility] Comment on above: Performed By: #### A REAFIV #### Laboratory [address] [address] [address] Carey Fisher WBC (Bld) [#/Vol] 10*3/uL Normal [facility] Comment on above: Performed By: #### A REAFIV #### Laboratory [address] [address] [address] Carey Fisher SPUTUM GRAM STAINon 02-29-20 COMMENTS Normal [facility] Comment on above: Performed By: #### S PUTGS #### Laboratory [address] [address] [address] Carey Fisher DIPHTHEROIDS Normal [facility] Comment on above: Performed By: #### S PUTGS #### Laboratory [address] [address] [address] Carey Fisher EPITHELIALS <25 Normal [facility] Comment on above: Performed By: #### S PUTGS #### Laboratory [address] [address] [address] Carey Fisher FUNGAL ELEMENTS Normal [facility] Comment on above: Performed By: #### S PUTGS #### Laboratory [address] [address] [address] Carey Fisher GRAM NEG BACILLI Normal [facility] Comment on above: Performed By: #### S PUTGS #### Laboratory [address] [address] [address] Carey Fisher GRAM NEG DIPPLOCOCCI Normal The Comment on above: Performed By: #### S PUTGS #### Laboratory [address] [address] [address] Carey Fisher GRAM POS BACILLI Normal [facility] Comment on above: Performed By: #### S PUTGS #### Laboratory [address] [address] [address] Carey Fisher GRAM POSITIVE COCCI RARE Normal [facility] Comment on above: Performed By: #### S PUTGS #### Laboratory [address] [address] [address] Carey Fisher WBC (Bld) [#/Vol] 10*3/uL Normal [facility] Comment on above: Performed By: #### S CLARICE #### Laboratory [address] [place] [address] Dr. Carey Fisher Respirationon 02-26-2022 Adult depression screening assessment No [facility] 170 DO Work Phone: Fall risk assessment a) No falls within the last year [facility] [place] 170 DO Work Phone: Heart Rate Regular [facility] [place] 170 DO Work Phone: Tobacco use status CPHS b) No [facility] [place] 170 DO Work Phone: Respiration Normal [facility] [place] 170 DO Work Phone: Respiration Large [facility] [place] 170 DO Work Phone: FERRITINon 02-25-2022 FERRITIN 73 ug/L Normal 20 - 300 [facility] Comment on above: Performed By: #### F ERRI #### [facility] [address] [place] [address] Ferritin, Serumon 02-24-2022 Ferritin [Mass/Vol] 73 ug/L 20 - 300 [facility] 2100 DO Work Phone: HGB + HCTon 02-24-2022 Hematocrit (Bld) [Volume fraction] 43.6 % Normal 41.0 - 52.0 [facility] Comment on above: Performed By: #### H H #### [address] [id number] Hemoglobin (Bld) [Mass/Vol] 12.6 g/dL Low 13.5 - 17.5 [facility] Comment on above: Performed By: #### H H #### [address] [id number] IRON + TIBCon 02-24-2022 % SATURATION 17 % Low 25 - 45 [facility] Comment on above: Performed By: #### I RAPHAEL #### [address] [id number] Iron [Mass/Vol] 63 ug/dL Normal 35 - 150 [facility] Comment on above: Performed By: #### I KIMBERLYT #### [address] [id number] TIBC 377 ug/dL Normal 240 - 445 [facility] Comment on above: Performed By: #### I RONT #### [address] [id number] Laboratory - Chemistry and C hemistry - challengeon 02-24-2022 Iron [Mass/Vol] 63 ug/dL 35 - 150 [facility] [employer] 2100 DO Work Phone: Iron binding capacity [Mass/Vol] 377 ug/dL 240 - 445 [facility] 2100 DO Work Phone: Laboratory - Hematology and Cell countson 02-24-2022 Hematocrit (Bld) [Volume fraction] 43.6 % See Below [facility] [facility] 2100 DO Work Phone: Comment on above: Reference Range: 41. 0 - 52.0 Hemoglobin (Bld) [Mass/Vol] 12.6 g/dL below low threshold See Below [facility] [facility] 2100 DO Work Phone: Comment on above: Reference Range: 13. 5 - 17.5 No Panel Informationon 02-24 17 % below low threshold 25 - 45 [facility] 2100 DO Work Phone: TESTOSTERONE, FREE,DIRECT, T OTALon 02-19-2022 Free Testosterone(Direct) 3.4 pg/mL Critically low 6.6-18.1 [facility] Comment on above: Result Comment: Perf ormed at: BN Performed By: #### T ESTFRD #### [id number] [place], [place] [address]YoSindi Fisher Testosterone [Mass/Vol] 560 ng/dL Normal 264-916 [facility] Comment on above: Result Comment: Adul t male reference interval is based on a population of healthy nonobese males (BMI <30) between 19 and 39 years old. Raheem, et.al. JCEM 2017,102;0168-4937. PMID: [id number]. Performed at: CB Performed By: #### T ESTFRD #### [id number] [place], [place] [address]LdSindi Fisher CHEST 2 VIEW PA AND LATon CHEST 2 VIEW PA AND LAT Patient Name: VELIA BAGLEY STUDY: TH CHEST 2 VIEW PA AND LAT; 02/12/2022 10:43 am INDICATION: cough J44.9: Asthma with COPD. COMPARISON: 12/07/2019 ACCESSION NUMBER(S): [id number] ORDERING CLINICIAN: RICH MAGANA FINDINGS: The cardiac silhouette is enlarged. There is a pulmonary vascular congestion and mild edema. No consolidation or effusion seen IMPRESSION: Enlarged cardiac silhouette with mild interstitial edema Electronically signed by: SOLITARIO WESTON MD Normal [facility] Radiologyon 02-12-2022 XR Chest 2 Views Please click on the link to view the study images Normal [facility] [address] [place] Work Phone: XR Chest 2 Views Normal [facility] Work Phone: Tobacco Screening.on 022 Fall risk assessment a) No falls within the last year [facility] [address] [place] Work Phone: Tobacco use status CPHS b) No [facility] [address] [place] Work Phone: Respirationon 01-15-2022 Heart Rate Regular [facility] 170 DO Work Phone: Respiration Normal [facility] 170 DO Work Phone: Respiration Adult [facility] 170 DO Work Phone: Blood anisocytosis detection Ordered By: Alina Moran on 01-14-2022 Anisocytosis Ql (Bld) Slight [facility] Polychromasia [Presence] in Blood by Light microscopyOrdered By: Alina Moran on 01-14-2022 Polychromasia LM Ql (Bld) Slight [facility] Polychromasia LM Ql (Bld) Polychromasia [Presence] in Blood by Light microscopy [facility] Serum intrinsic factor block ing antibody detection by radioimmunoassay (ARLETTE)Ordered By: Alina Moran on 01-14-2022 Intrinsic factor blocking Ab ARLETTE Ql (S) 1.0 AU/mL 0.0-1.1 [facility] Comment on above: Performed at: [employer] [address] [id number] Director: Cris Ridley MD, Phone: [phone] Intrinsic factor blocking Ab ARLETTE Ql (S) Serum intrinsic factor blocking antibody detection by radioimmunoassay (ARLETTE) 0.0-1.1 [facility] Comment on above: Performed at: [employer] [id number] Director: Cris Ridley MD, Phone: [phone] Serum or plasma gastrin javan urement (mass/volume)Ordered By: Alina Moran on 01-14-2022 Gastrin [Mass/Vol] 1533 pg/mL High [address] Comment on above: Siemens Immulite 200 0 Immunochemiluminometric assay (ICMA)Values obtained with different assay methods or kits cannotbe used interchangeably. Results cannot be interpreted asabsolute evidence of the presence or absence of malignantdisease.Results verified by repeat testing Gastrin [Mass/Vol] Serum or plasma poppy rin measurement (mass/volume) High [address] Comment on above: Siemens Immulite 200 0 Immunochemiluminometric assay (ICMA)Values obtained with different assay methods or kits cannotbe used interchangeably. Results cannot be interpreted asabsolute evidence of the presence or absence of malignantdisease.Results verified by repeat testing Serum parietal cell antibody assay (units/volume)Ordered By: Alina Moran on 01-14-2022 Parietal cell Ab Qn (S) 15.7 Units 0.0-20.0 [facility] Comment on above: Negative 0.0 - 20.0 Equivocal 20.1 - 24.9 Positive >24.9Parietal Cell Antibodies are found in 90% of patientswith pernicious anemia and 30% of first degreerelatives with pernicious anemia.Performed at: [employer] [address] [place], [place] [id number] Director: Wilfredo Lee PhD, Phone: [phone] Parietal cell Ab Qn (S) Serum parietal cell antibody assay (units/volume) 0.0-20.0 [facility] Comment on above: Negative 0.0 - 20.0 Equivocal 20.1 - 24.9 Positive >24.9Parietal Cell Antibodies are found in 90% of patientswith pernicious anemia and 30% of first degreerelatives with pernicious anemia.Performed at: [employer] [address] [place], [place] [id number] Director: Wilfredo Lee PhD, Phone: [phone] [facility] 01-08-2022 [facility] Office Visit (OTOL ) -------- JAMIEVELIA MENEZES ([id number]) 1960 M Date Time Provider Department 01/08/22 11:30 AM [facility] During your visit today, we recorded the following information about you: Debi Patel RN 01/08/2022 12:11 PM Signed Tobacco Use: Never Was smoking cessation packet given? N/A - Patient is a non-smoker or quit >1 year ago. Was a referral initiated?N/A Patient is a non-smoker Gela Ruffin MD 01/08/2022 12:11 PM Signed This note is formatted with the Assessment and Plan first and Subjective and Objective sections to follow. Assessment: 1. Gastroesophageal reflux disease 2. Mild obstructive sleep apnea Plan: The patient has several months of a sensation of pain in his throat with swallowing. The patient has a history of acid reflux and is taking omeprazole 20 mg twice daily. I recommended that he increase this to 40 mg twice daily. Today's exam, including flexible laryngoscopy, revealed only erythema of the arytenoid mucosa. I suspect his discomfort is due to acid reflux that is not quite controlled. If this increase in medication does not resolve his symptoms, I would recommend that he follow-up with gastroenterology. The patient also brought with him a sleep study from [facility] from February 22, 2020. This showed an apnea-hypopnea index of 10.1 based on a 4% desaturation calculation. When used with a 3% desaturation calculation he had an apnea-hypopnea index of 17.5. I do not feel that the patient is a candidate for hypoglossal nerve stimulation at this point. He is using oxygen therapy at home and based on his mild obstructive sleep apnea I do not feel that he he needs surgical intervention. Subjective: Mr. VELIA BAGLEY is a 61 year old male returning for throat complaints. Since last seen, the patient notes that he has had several months of a sore throat with eating. The patient notes that it takes him time to eat because he has anxiety about swallowing. The patient has a history of acid reflux and is being treated with omeprazole 20 mg twice daily. The patient notes that he does not have heartburn currently on this regimen. The patient is using oxygen therapy for his obstructive sleep apnea. He is seen mostly at [facility] and was recommended to consider hypoglossal nerve stimulation. He does not wish to pursue this therapy at this point. ALLERGIES Allergen Reactions Avocado Swelling Baclofen Other: See Comments Dizziness and full body weakness Candasartan [Other] Rash Chocolate Unknown Ciprofloxacin (Bulk) Anaphylaxis Grass Pollen Unknown Indocin [Indomethac* Rash Ivp Dye [Iodine] Anaphylaxis Penicillins Rash Lima Oil Unknown Propranolol Other: See Comments Severe low bp and kidneys shutting down. Sulfa (Sulfonamide * Rash, Itching Valium [Diazepam] Other: See Comments Depression tamsulosin (FLOMAX) 0.4 mg, TAKE 2 CAPSULES BY MOUTH EVERY DAY AT BEDTIME *MUST SCHEDULE FOLLOW UP*, Disp: 60 capsule, Rfl: 1 acetylcysteine (MUCOMYST) 100 mg/mL (10 %) nebulizer solution, Inhale 1 mL as instructed every 12 hours, discard excess in vial after 4 days. (Patient not taking: Reported on 01/14/2021 ), Disp: 60 mL, Rfl: 0 gabapentin (NEURONTIN) 300 mg capsule, Take 1 capsule by mouth every 8 hours., Disp: , Rfl: topiramate (TOPAMAX) 100 mg tablet, Take 1 tablet by mouth twice daily., Disp: , Rfl: SUMAtriptan Succinate (IMITREX STAT) 6 mg/0.5 mL cartridge, Inject 6 mg subcutaneously. One injection at onset of migraine. Repeat 2 hours later as needed., Disp: , Rfl: levalbuterol tartrate HFA 45 mcg/actuation inhaler, Inhale 1-2 Puffs as instructed every 4 hours as needed for Wheezing/Shortness of Breath., Disp: , Rfl: acetaminophen (TYLENOL) 325 mg tablet, Take 650 mg by mouth every 4 hours as needed., Disp: , Rfl: albuterol (PROVENTIL) 2.5 mg/3 mL nebulizer solution, Inhale 2.5 mg as instructed every 6 hours as needed., Disp: , Rfl: verapamil SR (CALAN SR, ISOPTIN SR) 120 mg CR tablet, Take 1 tablet by mouth once daily., Disp: , Rfl: docusate sodium (COLACE) 100 mg capsule, Take 1 capsule by mouth twice daily as needed for Constipation., Disp: , Rfl: 0 aspirin 81 mg chewable tablet, Take 81 mg by mouth twice daily., Disp: , Rfl: omeprazole (PRILOSEC) 20 mg capsule, Take 20 mg by mouth twice daily., Disp: , Rfl: AIMOVIG AUTOINJECTOR 140 mg/mL syringe, Inject 140 mg subcutaneously once every month. Take on the , Disp: , Rfl: venlafaxine ER (EFFEXOR XR) 75 mg 24 hr capsule, Take 75 mg by mouth once daily., Disp: , Rfl: levocetirizine (XYZAL) 5 mg tablet, Take 2.5 mg by mouth daily at bedtime. , Disp: , Rfl: tiotropium (SPIRIVA) 18 mcg inhalation capsule, Inhale 18 mcg as instructed once daily., Disp: , Rfl: levalbuterol (XOPENEX) 1.25 mg/3 mL nebulizer solution, Use 1 Ampule via nebulizer every 4 hours (more content not included)... Normal [facility] Tobacco Screening.on 022 Fall risk assessment a) No falls within the last year [facility] [address] [place] Work Phone: Tobacco use status CPHS b) No [facility] [address] [place] Work Phone: IMMUNOGLOBULIN IGG QUANTITAT IVEon 12-07-2021 Immunoglobulin G, Qn, Serum 1164 mg/dL Normal [id number] The Comment on above: Performed By: #### A REAFIV #### Laboratory [address] [address] [address] Carey Fisher CBC AUTO DIFFon 12-06-2021 BASO # 0.0 103/ul Normal 0.0-0.1 The Comment on above: Performed By: #### C BC #### [id number] [address]DrSindi Fisher Basophils/100 WBC (Bld) 0.3 % Normal 0.2-2.0 The Comment on above: Performed By: #### C BC #### [id number] [address]Dr[address] Carey Fisher EO # 0.0 103/ul Normal 0.0-0.7 The Comment on above: Performed By: #### C BC #### [id number] [id number]. Carey Fisher Eosinophils/100 WBC (Bld) 0.0 % Critically low 0.9-7.0 The Comment on above: Performed By: #### C BC #### [id number] [place] [id number] Fisher Erythrocyte distribution width (RBC) [Ratio] 19.6 % Critically high 11.0-15.0 The Comment on above: Performed By: #### C BC #### [id number] [address]DrSindi Fisher Hematocrit (Bld) [Volume fraction] 31.9 % Critically low 42.0-54.0 The Comment on above: Performed By: #### C BC #### [id number] [place] [id number]. Carey Fisher Hemoglobin (Bld) [Mass/Vol] 9.6 g/dL Critically low 14.0-18.0 The Comment on above: Performed By: #### C BC #### [id number] [place] [id number]. Carey Fisher IG # 0.05 10e3/ul Critically high 0.00-0.03 [facility] Comment on above: Performed By: #### C BC #### [id number] [address]Dr. Carey Fisher IG % 0.7 % Critically high 0.0-0.[address] [facility] Comment on above: Performed By: #### C BC #### [id number] [place], [place] [address]Dr. Carey Fisher LYMPH # 1.9 103/ul Normal 1.2-3.8 The Comment on above: Performed By: #### C BC #### [id number] [address]Dr. Carey Fisher Lymphocytes/100 WBC (Bld) 25.8 % Normal 20.5-60.0 [facility] Comment on above: Performed By: #### C BC #### [id number] [address]Dr[address] Carey Fisher MANUAL DIFF REQ NO Normal [facility] [facility] Comment on above: Performed By: #### C BC #### [id number] [place], [place] [address]Dr. Carey Fisher MCH (RBC) [Entitic mass] 21.3 pg Critically low 25.9-34.0 The Comment on above: Performed By: #### C BC #### [id number] [place], [place] [address]Dr. Carey Fisher MCHC (RBC) [Mass/Vol] 30.1 g/dL Normal 29.9-35.2 The Comment on above: Performed By: #### C BC #### [id number] [place] [id number]. Carey Fisher MCV (RBC) [Entitic vol] 70.9 fL Critically low 80.0-94.0 The Comment on above: Performed By: #### C BC #### Kkxzwowqry7827 [place] [id number]. Carey Fisher MONO # 0.6 103/ul Normal 0.3-0.8 The Comment on above: Performed By: #### C BC #### [id number] [place] [id number]. Carey Fisher Monocytes/100 WBC (Bld) 8.2 % Normal 1.7-12.0 The Comment on above: Performed By: #### C BC #### [id number] [place], [place] [id number]. Carey Fisher NEUT # 4.7 103/ul Normal 1.4-6.5 The Comment on above: Performed By: #### C BC #### [id number] [place], [place] [address]Dr. Carey Fisher Neutrophils/100 WBC (Bld) 65.0 % Normal 43.0-75.0 The Comment on above: Performed By: #### C BC #### [id number] [place] [phone]. Carey Fisher Platelet mean volume (Bld) [Entitic vol] 9.5 fL Normal 9.5-13.5 The Comment on above: Performed By: #### C BC #### [id number] [place] [id number]. Carey Fisher PLT 279 103/ul Normal 150-450 The Comment on above: Performed By: #### C BC #### [id number] [place] [phone]. Carey Fisher RBC 4.50 106/ul Critically low 4.70-6.[address] [facility] Comment on above: Performed By: #### C BC #### [id number] [place] [id number]. Carey Fisher WBC 7.2 103/ul Normal 4.0-11.0 [facility] Comment on above: Performed By: #### C BC #### Gvrlntlvqk0746 [place] [address]Dr. Carey Fisher PROF 14(COMP METB)on 022 Albumin [Mass/Vol] 3.5 g/dL Normal 3.4-5.0 [facility] Comment on above: Performed By: #### C MP #### Gxqkjmjueb7313 [place] [address]Dr. Carey Fisher Albumin/Globulin [Mass ratio] 1.0 {ratio} Normal [facility] Comment on above: Performed By: #### C MP #### [id number] [place] [address]Dr. Carey Fisher ALP [Catalytic activity/Vol] 115 U/L Normal 46-116 [facility] Comment on above: Performed By: #### C MP #### Kjhpwkebgj9294 [place] [address]Dr. Carey Fisher ALT [Catalytic activity/Vol] 15 U/L Critically low 16-63 [facility] Comment on above: Performed By: #### C MP #### Sqpwxfwxce5447 [place] [address]Dr. Carey Fisher Anion gap [Moles/Vol] 17.9 mmol/L Normal [facility] Comment on above: Performed By: #### C MP #### [id number] [place] [address]Dr. Carey Fisher AST [Catalytic activity/Vol] 16 U/L Normal 15-37 [facility] Comment on above: Performed By: #### C MP #### Fxrawayrbn1544 [place] [address]Dr. Carey Fisher Bilirubin [Mass/Vol] 0.2 mg/dL Normal 0.2-1.0 [facility] Comment on above: Performed By: #### C MP #### Gjqtkkscpb9637 [place] [id number]. Carey Fisher Calcium [Mass/Vol] 8.3 mg/dL Critically low 8.5-10.1 [facility] Comment on above: Performed By: #### C MP #### Zzswggzpcb4929 [place] [phone]. Carey Fisher Chloride [Moles/Vol] 106 mmol/L Normal 98-107 The Comment on above: Performed By: #### C MP #### Hyocwwxmme3904 [place] [phone]. Carey Fisher CO2 [Moles/Vol] 19.3 mmol/L Critically low 21.0-32.0 [facility] Comment on above: Performed By: #### C MP #### Sdiaznbpsa5393 [place] [address]Dr. Carey Fisher Creatinine [Mass/Vol] 1.28 mg/dL Normal 0.70-1.30 [facility] Comment on above: Performed By: #### C MP #### [id number] [place] [address]Dr. Carey Fisher EGFR-AF SYRIAN >60 Normal >=60 [facility] Comment on above: Performed By: #### C MP #### [id number] [place] [address]Dr. Carey Fisher EGFR-NON AF SYRIAN 57 mL/min/1.73m2 Critically low >=60 The Comment on above: Performed By: #### C MP #### Exwodrqghm6344 [place] [phone]. Carey Fisher Globulin (S) [Mass/Vol] 3.5 g/dL Normal The Comment on above: Performed By: #### C MP #### Dfqcmycgec6636 [place] [address]Dr. Carey Fisher Glucose [Mass/Vol] 86 mg/dL Normal 74-106 [facility] Comment on above: Performed By: #### C MP #### Ehbzgtexea7553 [place] [address]Dr. Carey Fisher Potassium [Moles/Vol] 4.2 mmol/L Normal 3.5-5.1 [facility] Comment on above: Performed By: #### C MP #### Wquykknctp1643 [place] [address]Dr. Carey Fisher Protein [Mass/Vol] 7.0 g/dL Normal 6.4-8.2 [facility] Comment on above: Performed By: #### C MP #### Mjlxkmpbsi8332 [place] [address]Dr. Carey Fisher Sodium [Moles/Vol] 139 mmol/L Normal 136-145 [facility] Comment on above: Performed By: #### C MP #### Fkcmb[address]se[address] [place], [place] [address]Dr. Carey Fisher Urea nitrogen [Mass/Vol] 29.0 mg/dL Critically high 7.0-18.0 [facility] Comment on above: Performed By: #### C MP #### Mjs[address]ow[address] [place], [place] [address]Dr. Carey Fisher Urea nitrogen/Creatinine [Mass ratio] 22.7 mg/mg Normal [facility] Comment on above: Performed By: #### C MP #### [id number] [place], [place] [address]Dr. Carey Fisher IMMUNOGLOBULIN IGG QUANTITAT IVEon 12-04-2021 Immunoglobulin G, Qn, Serum 1250 mg/dL Normal 603-1613 [facility] Comment on above: Performed By: #### I MIGGQN #### Odpthcepca5479 [place] [address]Dr. Carey Phillip FERRITINon 12-03-2021 Ferritin [Mass/Vol] 10.0 ng/mL Critically low 26.0-388.0 [facility] Comment on above: Performed By: #### B 12FOL, FERR, FETIBC #### Nnppueopcu2336 [place] [address]Dr. Carey Fisher IRON AND TIBCon 08-02-2022 % SATURATION 4.9 % Normal [facility] Comment on above: Performed By: #### B 12FOL, FERR, FETIBC #### Rjwpxovarn2532 [place] [id number]. Carey Fisher Iron [Mass/Vol] 17.0 ug/dL Critically low 65.0-175.0 [facility] Comment on above: Performed By: #### B 12FOL, FERR, FETIBC #### Quwuvyaxcs9330 [place] [phone]. Carey Fisher TIBC DIRECT 349.0 ug/dL Normal 250.0-450.0 [facility] Comment on above: Performed By: #### Dary 12FOL, FERR, FETIBC #### Rzahfcyuhm9202 [place] [address]Dr. Carey Fisher VIT B12 AND FOLATEon 022 Cobalamin (Vitamin B12) [Mass/Vol] 446.0 pg/mL Normal 193.0-986.0 [facility] Comment on above: Performed By: #### Dary 12FOL, FERR, FETIBC #### Emafqtszom9984 [place] [id number]. Carey Fisher FOLATE 2.50 ng/mL Critically low 8.60-58.90 [facility] Comment on above: Performed By: #### Dary 12FOL, FERR, FETIBC #### Orfgfhqdgd1667 [place] [address]Dr. Carey Fisher XR KNEE CARMEN 4V or >on 2021 XR KNEE CARMEN 4V or > BILATERAL KNEES, 8 V IEWS - 12/03/2021 COMPARISON: 04/05/2018. HISTORY: Bilateral pain. FINDINGS: There is no evidence for acute fracture, subluxation, or dislocation. There is severe tricompartmental osteoarthritis of the right knee and moderate tricompartmental osteoarthritis of the left knee. The joint space narrowing and spur formation is symmetrically involving the medial and lateral knee joint compartments as well as the patellofemoral joint. On the lateral views, there are bilateral moderate knee joint effusions. The osseous, articular, and surrounding soft tissue structures are otherwise unremarkable. IMPRESSION: 1. Severe tricompartmental osteoarthritis of the right knee. 2. Moderate tricompartmental osteoarthritis of the left knee, slightly progressed compared to 04/05/2018. 3. Moderate bilateral knee joint effusions. Electronically authenticated by: RICH MORAN Date: 2021-12-03 20:53 Normal The Complete Blood Count + Diffe rentialon 11-29-2021 Basophils/100 WBC (Bld) 0.3 % 0.0 - 2.0 [employer] 2100 DO Work Phone: Erythrocyte distribution width (RBC) [Ratio] 19.7 % above high threshold See Below [employer] DO Work Phone: Comment on above: Reference Range: 11. 5 - 14.5 Hematocrit (Bld) [Volume fraction] 34.9 % below low threshold See Below [employer] DO Work Phone: Comment on above: Reference Range: 41. 0 - 52.0 Hemoglobin (Bld) [Mass/Vol] 9.9 g/dL below low threshold See Below [employer] 2100 DO Work Phone: Comment on above: Reference Range: 13. 5 - 17.5 Lymphocytes/100 WBC (Bld) 17.7 % See Below [employer] 2100 DO Work Phone: Comment on above: Reference Range: 13. 0 - 44.0 MCHC (RBC) [Mass/Vol] 28.4 g/dL below low threshold See Below [employer] DO Work Phone: Comment on above: Reference Range: 32. 0 - 36.0 MCV (RBC) [Entitic vol] 74 fL below low threshold 80 - 100 [employer] DO Work Phone: Monocytes/100 WBC (Bld) 9.1 % 2.0 - 10.0 [employer] DO Work Phone: Neutrophils/100 WBC (Bld) 72.4 % See Below [employer] DO Work Phone: Comment on above: Reference Range: 40. 0 - 80.0 Platelets (Bld) [#/Vol] 256 10*3/uL 150 - 450 [employer] 2100 DO Work Phone: RBC (Bld) [#/Vol] 4.74 {x10E12/L} See Below [employer] DO Work Phone: Comment on above: Reference Range: 4.5 0 - 5.90 WBC (Bld) [#/Vol] 7.6 10*3/uL 4.4 - 11.3 -[employer] DO Work Phone: Complete Blood Count + Differential 0.02 {x10E9/L} See Below [employer] DO Work Phone: Comment on above: Reference Range: 0.0 0 - 0.10 Complete Blood Count + Differential 0.69 {x10E9/L} See Below [employer] DO Work Phone: Comment on above: Reference Range: 0.1 0 - 1.00 Complete Blood Count + Differential 1.34 {x10E9/L} See Below [employer] DO Work Phone: Comment on above: Reference Range: 1.2 0 - 4.80 Complete Blood Count + Differential 5.48 {x10E9/L} See Below [employer] DO Work Phone: Comment on above: Reference Range: 1.2 0 - 7.70 Complete Blood Count + Differential 0.5 % 0.0 - 0.9 [employer] DO Work Phone: Comment on above: Immature Granulocyte Count (IG) includes promyelocytes, myelocytes and metamyelocytes but does not include bands. Percent differential counts (%) should be interpreted in the context of the absolute cell counts (cells/L). Immunoglobulin G Level, Seru mon 11-29-2021 IgG [Mass/Vol] 1320 mg/dL 700 - 1600 -Allergi [facility] 2100 DO Work Phone: Comment on above: MONOCLONAL PROTEINS MAY CAUSE FALSELY LOWRESULTS IN THIS ASSAY. SERUM PROTEINELECTROPHORESIS SHOULD BE DONE THEFIRST TEST TO EVALUATE MONOCLONAL GAMMOPATHY. CBC AUTO DIFFon 11-28-2021 BASO # 0.0 103/ul Normal 0.0-0.1 [facility] Comment on above: Performed By: #### S PUTGS #### Laboratory [address] [place] [address] Dr. Carey Fisher Basophils/100 WBC (Bld) 0.3 % Normal 0.2-2.0 [facility] Comment on above: Performed By: #### S PUTGS #### Laboratory [address] [place] [address] Dr. Carey Fisher EO # 0.0 103/ul Normal 0.0-0.7 [facility] Comment on above: Performed By: #### S PUTGS #### Laboratory [address] [place] [address] Dr. Carey Fisher Eosinophils/100 WBC (Bld) 0.0 % Critically low 0.9-7.0 [facility] Comment on above: Performed By: #### S PUTGS #### Laboratory [address] [place] [address] Dr. Carey Fisher Erythrocyte distribution width (RBC) [Ratio] 19.2 % Critically high 11.0-15.0 [facility] Comment on above: Performed By: #### S PUTGS #### Laboratory [address] [place] [address] Dr. Carey Fisher Hematocrit (Bld) [Volume fraction] 35.8 % Critically low 42.0-54.0 [facility] Comment on above: Performed By: #### S PUTGS #### Laboratory [address] [place] [address] Dr. Carey Fisher Hemoglobin (Bld) [Mass/Vol] 10.4 g/dL Critically low 14.0-18.0 [facility] Comment on above: Performed By: #### S PUTGS #### [address] [place] [address] [address] Carey Fisher IG # 0.03 10e3/ul Normal 0.00-0.03 [facility] Comment on above: Performed By: #### S PUTGS #### [address] [place] [address] [address] Carey Fisher IG % 0.5 % Normal 0.0-0.5 [facility] Comment on above: Performed By: #### S PUTGS #### [address] [place] [address] [address] Carey Fisher LYMPH # 1.5 103/ul Normal 1.2-3.8 The Comment on above: Performed By: #### S PUTGS #### Laboratory [address] [place] [address] Dr. Carey Fisher Lymphocytes/100 WBC (Bld) 26.1 % Normal 20.5-60.0 The Comment on above: Performed By: #### S PUTGS #### Laboratory [address] [place] [address] Dr. Carey Fisher MANUAL DIFF REQ NO Normal [facility] Comment on above: Performed By: #### S PUTGS #### [address] [place] [address] [address] Carey Fisher MCH (RBC) [Entitic mass] 20.6 pg Critically low 25.9-34.0 [facility] Comment on above: Performed By: #### S PUTGS #### [address] [place] [address] [address] Carey Fisher MCHC (RBC) [Mass/Vol] 29.1 g/dL Critically low 29.9-35.2 The Comment on above: Performed By: #### S PUTGS #### Laboratory [address] [place] [address] Dr. Carey Fisher MCV (RBC) [Entitic vol] 70.9 fL Critically low 80.0-94.0 [facility] Comment on above: Performed By: #### S PUTGS #### [address] [place] [address] [address] Carey Fisher MONO # 0.4 103/ul Normal 0.3-0.8 The Comment on above: Performed By: #### S PUTGS #### Laboratory [address] [place] [address] Dr. Carey Fisher Monocytes/100 WBC (Bld) 6.6 % Normal 1.7-12.0 The Comment on above: Performed By: #### S PUTGS #### Laboratory [address] [place] [address] Dr. Carey Fisher NEUT # 3.9 103/ul Normal 1.4-6.5 The Comment on above: Performed By: #### S PUTGS #### Laboratory [address] [place] [address] Dr. Carey Fisher Neutrophils/100 WBC (Bld) 66.5 % Normal 43.0-75.0 The Comment on above: Performed By: #### S PUTGS #### Laboratory [address] [place] [address] Dr. Carey Fisher Platelet mean volume (Bld) [Entitic vol] 9.7 fL Normal 9.5-13.5 The Comment on above: Performed By: #### S PUTGS #### Laboratory [address] [place] [address] Dr. Carey Fisher PLT 247 103/ul Normal 150-450 The Comment on above: Performed By: #### S PUTGS #### Laboratory [address] [place] [address] Dr. Carey Fisher RBC 5.05 106/ul Normal 4.70-6.10 The Comment on above: Performed By: #### S PUTGS #### Laboratory [address] [place] [address] Dr. Carey Fisher WBC 5.9 103/ul Normal 4.0-11.0 The Comment on above: Performed By: #### S PUTGS #### Laboratory [address] [place] [address] Dr. Carey Fisher PROF CHEM 8 (BAS METB)on Anion gap [Moles/Vol] 11.2 mmol/L Normal [facility] Comment on above: Performed By: #### B MP #### Sjlxyagbcr[address] [place] [address]Dr. Carey Fisher Calcium [Mass/Vol] 8.4 mg/dL Critically low 8.5-10.1 [facility] Comment on above: Performed By: #### B MP #### Rvtxaumyyz58[address] [place] [address]Dr. Carey Fisher Chloride [Moles/Vol] 107 mmol/L Normal 98-107 [facility] Comment on above: Performed By: #### B MP #### [id number] [place] [address]Dr. Carey Fisher CO2 [Moles/Vol] 23.5 mmol/L Normal 21.0-32.0 [facility] Comment on above: Performed By: #### B MP #### [address]sm[address] [place], [place] [address]Dr. Carey Fisher Creatinine [Mass/Vol] 1.09 mg/dL Normal 0.70-1.30 [facility] Comment on above: Performed By: #### B MP #### T[address]okowf[address] [place] [address]Dr. Carey Fisher EGFR-AF SYRIAN >60 Normal >=60 [facility] Comment on above: Performed By: #### B MP #### Jum[address]zlnjb[address] [place] [address]Dr. Carey Fisher EGFR-NON AF SYRIAN >60 Normal >=60 [facility] Comment on above: Performed By: #### B MP #### Jgsxncffpy6[address] [place] [address]Dr. Carey Fisher Glucose [Mass/Vol] 101 mg/dL Normal 74-106 [facility] Comment on above: Performed By: #### B MP #### [address]fa[address]jm[address] [place], [place] [address]Dr. Carey Fisher Potassium [Moles/Vol] 3.7 mmol/L Normal 3.5-5.1 [facility] Comment on above: Performed By: #### B MP #### [address]rwp36[address] [place], [place] [address]Rc. Carey Fisher Sodium [Moles/Vol] 138 mmol/L Normal 136-145 [facility] Comment on above: Performed By: #### B MP #### Iiioitfbyh7792 [place], [place] [address]Ug. Carey Fisher Urea nitrogen [Mass/Vol] 20.0 mg/dL Critically high 7.0-18.0 [facility] Comment on above: Performed By: #### B MP #### X[address]fcmh4576 [place], [place] [address]Lk. Carey Fisher Urea nitrogen/Creatinine [Mass ratio] 18.3 mg/mg Normal [facility] Comment on above: Performed By: #### B MP #### Ibxfazlazc0438 [place], [place] [address]Ts. Carey Fisher XR CHEST 2 Von 11-28-2021 XR CHEST 2 V EXAM: XR CHEST 2 V HISTORY: COUGH COMPARISON: Chest x-ray performed 08/02/2021 and 07/29/2021. TECHNIQUE: Frontal and lateral views of the chest are obtained. FINDINGS: The cardiomediastinal silhouette is nonenlarged. There is low lung volumes with mild prominence of the central interstitial markings with persistent left basilar atelectatic change. No definitive consolidation, sizable effusion or pneumothorax. The osseous structures appear osteopenic and grossly intact with senescent changes of the thoracic spine with small spurring and sclerosis at the endplates. IMPRESSION: Low lung volumes with similar appearing atelectasis at the left lung base to the prior study. No definitive acute cardiopulmonary process identified. Electronically authenticated by: EFRAÍN RODRIGES Date: 2021-11-27 23:20 Normal The XR NECK SOFT TISSUEon 2021 XR NECK SOFT TISSUE EXAM: XR NECK SOFT TISSUE HISTORY: COUGH COMPARISON: None. TECHNIQUE: AP and lateral views of the neck soft tissues are obtained. FINDINGS: There is no prevertebral soft tissue swelling. The epiglottis is not abnormally thickened. The trachea appears normally patent. No radiopaque foreign body is identified. The osseous structures appear grossly intact. The lung apices are grossly clear. IMPRESSION: Normal neck soft tissues. Electronically authenticated by: EFRAÍN RODRIGES Date: 2021-11-27 23:22 Normal The CBC AUTO DIFFon 10-07-2021 BASO # 0.0 103/ul Normal 0.0-0.1 The Comment on above: Performed By: #### A REAFIV #### Laboratory [address] [place] [address] [address] Carey Fisher Basophils/100 WBC (Bld) 0.1 % Critically low 0.2-2.0 The Comment on above: Performed By: #### A REAFIV #### Laboratory [address] [place] [address] Dr. Carey Fisher EO # 0.0 103/ul Normal 0.0-0.7 The Comment on above: Performed By: #### A REAFIV #### Laboratory [address] [place] [address] Dr. Carey Fisher Eosinophils/100 WBC (Bld) 0.0 % Critically low 0.9-7.0 The Comment on above: Performed By: #### A REAFIV #### Laboratory [address] [place] [address] Dr. Carey Fisher Erythrocyte distribution width (RBC) [Ratio] 19.5 % Critically high 11.0-15.0 The Comment on above: Performed By: #### A REAFIV #### Laboratory [address] [place] [address] Dr. Carey Fisher Hematocrit (Bld) [Volume fraction] 36.8 % Critically low 42.0-54.0 The Comment on above: Performed By: #### A REAFIV #### Laboratory [address] [place] [address] Dr. Carey Fisher Hemoglobin (Bld) [Mass/Vol] 10.5 g/dL Critically low 14.0-18.0 The Comment on above: Performed By: #### A REAFIV #### Laboratory [address] [place] [address] [address] Carey Fisher IG # 0.05 10e3/ul Critically high 0.00-0.03 [facility] Comment on above: Performed By: #### A REAFIV #### Laboratory [address] [place] [address] [address] Carey Fisher IG % 0.6 % Critically high 0.0-0.5 [facility] Comment on above: Performed By: #### A REAFIV #### Laboratory [address] [place] [address] [address] Carey Fisher LYMPH # 2.2 103/ul Normal 1.2-3.8 [facility] Comment on above: Performed By: #### A REAFIV #### Laboratory [address] [place] [address] [address] Carey Fisher Lymphocytes/100 WBC (Bld) 26.9 % Normal 20.5-60.0 [facility] Comment on above: Performed By: #### A REAFIV #### Laboratory [address] [place] [address] [address] Carey Fisher MANUAL DIFF REQ NO Normal [facility] Comment on above: Performed By: #### A REAFIV #### Laboratory [address] [place] [address] [address] Carey Fisher MCH (RBC) [Entitic mass] 21.3 pg Critically low 25.9-34.0 [facility] Comment on above: Performed By: #### A REAFIV #### Laboratory [address] [place] [address] [address] Carey Fisher MCHC (RBC) [Mass/Vol] 28.5 g/dL Critically low 29.9-35.2 [facility] Comment on above: Performed By: #### A REAFIV #### [address] [place] [address] [address] Carey Fisher MCV (RBC) [Entitic vol] 74.6 fL Critically low 80.0-94.0 [facility] Comment on above: Performed By: #### A REAFIV #### Laboratory [address] [place] [address] Dr. Carey Fisher MONO # 0.6 103/ul Normal 0.3-0.8 The Comment on above: Performed By: #### A REAFIV #### Laboratory [address] [place] [address] Dr. Carey Fisher Monocytes/100 WBC (Bld) 7.2 % Normal 1.7-12.0 [facility] Comment on above: Performed By: #### A REAFIV #### Laboratory [address] [place] [address] Dr. Carey Fisher NEUT # 5.4 103/ul Normal 1.4-6.5 [facility] Comment on above: Performed By: #### A REAFIV #### Laboratory [address] [place] [address] Dr. Carey Fisher Neutrophils/100 WBC (Bld) 65.2 % Normal 43.0-75.0 [facility] Comment on above: Performed By: #### A REAFIV #### Laboratory [address] [place] [address] Dr. Carey Fisher Platelet mean volume (Bld) [Entitic vol] 9.2 fL Critically low 9.5-13.5 The Comment on above: Performed By: #### A REAFIV #### Laboratory [address] [place] [address] Dr. Carey Fisher PLT 263 103/ul Normal 150-450 The Comment on above: Performed By: #### A REAFIV #### Laboratory [address] [place] [address] Dr. Carey Fisher RBC 4.93 106/ul Normal 4.70-6.10 The Comment on above: Performed By: #### A REAFIV #### Laboratory [address] [place] [address] Dr. Carey Fisher WBC 8.2 103/ul Normal 4.0-11.0 [facility] Comment on above: Performed By: #### A REAFIV #### Laboratory [address] [place] [address] Dr. Carey Fisher FERRITINon 10-07-2021 Ferritin [Mass/Vol] 11.0 ng/mL Critically low 26.0-388.0 [facility] Comment on above: Performed By: #### S PUTGS #### Laboratory [address] [place] [address] Dr. Carey Fisher PROF CHEM 8 (BAS METB)on Anion gap [Moles/Vol] 12.4 mmol/L Normal [facility] Comment on above: Performed By: #### B MP #### Laboratory [address] [place] [address] Dr. Carey Fisher Calcium [Mass/Vol] 8.2 mg/dL Critically low 8.5-10.1 [facility] Comment on above: Performed By: #### B MP #### Laboratory [address] [place] [address] Dr. Carey Fisher Chloride [Moles/Vol] 106 mmol/L Normal 98-107 [facility] Comment on above: Performed By: #### B MP #### Laboratory [address] [place] [address] Dr. Carey Fisher CO2 [Moles/Vol] 23.2 mmol/L Normal 21.0-32.0 [facility] Comment on above: Performed By: #### B MP #### Laboratory [address] [place] [address] Dr. Carey Fisher Creatinine [Mass/Vol] 1.23 mg/dL Normal 0.70-1.30 [facility] Comment on above: Performed By: #### B MP #### Laboratory [address] [place] [address] Dr. Carey Fisher EGFR-AF SYRIAN >60 Normal >=60 [facility] Comment on above: Performed By: #### B MP #### Laboratory [address] [place] [address] Dr. Carey Fisher EGFR-NON AF SYRIAN 60 mL/min/1.73m2 Normal >=60 [facility] Comment on above: Performed By: #### B MP #### Laboratory [address] [place] [address] Dr. Carey Fisher Glucose [Mass/Vol] 107 mg/dL Critically high 74-106 [facility] Comment on above: Performed By: #### B MP #### Laboratory [address] [place] [address] Dr. Carey Fisher Potassium [Moles/Vol] 3.6 mmol/L Normal 3.5-5.1 [facility] Comment on above: Performed By: #### B MP #### Laboratory [address] [place] [address] Dr. Carey Fisher Sodium [Moles/Vol] 138 mmol/L Normal 136-145 [facility] Comment on above: Performed By: #### B MP #### Laboratory [address] [place] [address] Dr. Carey Fisher Urea nitrogen [Mass/Vol] 31.0 mg/dL Critically high 7.0-18.0 [facility] Comment on above: Performed By: #### B MP #### Laboratory [address] [place] [address] Dr. Carey Fisher Urea nitrogen/Creatinine [Mass ratio] 25.2 mg/mg Normal [facility] Comment on above: Performed By: #### B MP #### Laboratory [address] [place] [address] Dr. Carey Fisher VITAMIN B12on 10-07-2021 Cobalamin (Vitamin B12) [Mass/Vol] 594.0 pg/mL Normal 193.0-986.0 [facility] Comment on above: Performed By: #### S PUTGS #### Laboratory [address] [place] [address] Dr. Carey Fisher IMMUNOGLOBULIN IGG QUANTITAT IVEon 09-21-2021 Immunoglobulin G, Qn, Serum 1204 mg/dL Normal 603-1613 [facility] Comment on above: Performed By: #### I MIGGQN #### [id number] [place] [address]Dr. Carey Fisher CBC AUTO DIFFon 09-19-2021 BASO # 0.0 103/ul Normal 0.0-0.1 [facility] Comment on above: Performed By: #### S PUTGS #### Laboratory [address] [address] [address] Carey Fisher Basophils/100 WBC (Bld) 0.2 % Normal 0.2-2.0 [facility] Comment on above: Performed By: #### S PUTGS #### Laboratory [address] [address] [address] Carey Fisher EO # 0.0 103/ul Normal 0.0-0.7 [facility] Comment on above: Performed By: #### S PUTGS #### Laboratory [address] [place] [address] Dr. Carey Fisher Eosinophils/100 WBC (Bld) 0.0 % Critically low 0.9-7.0 [facility] Comment on above: Performed By: #### S PUTGS #### Laboratory [address] [address] [address] Carey Fisher Erythrocyte distribution width (RBC) [Ratio] 18.6 % Critically high 11.0-15.0 [facility] Comment on above: Performed By: #### S PUTGS #### Laboratory [address] [address] [address] Carey Fisher Hematocrit (Bld) [Volume fraction] 31.8 % Critically low 42.0-54.0 [facility] Comment on above: Performed By: #### S PUTGS #### Laboratory [address] [address] [address] Carey Fisher Hemoglobin (Bld) [Mass/Vol] 9.1 g/dL Critically low 14.0-18.0 [facility] Comment on above: Performed By: #### S PUTGS #### Laboratory [address] [address] [address] Carey Fisher IG # 0.02 10e3/ul Normal 0.00-0.03 The Comment on above: Performed By: #### S PUTGS #### Laboratory [address] [address] [address] Carey Fisher IG % 0.3 % Normal 0.0-0.5 [facility] Comment on above: Performed By: #### S PUTGS #### Laboratory [address] [address] [address] Carey Fisher LYMPH # 1.0 103/ul Critically low 1.2-3.8 [facility] Comment on above: Performed By: #### S PUTGS #### Laboratory [address] [address] [address] Carey Fisher Lymphocytes/100 WBC (Bld) 15.4 % Critically low 20.5-60.0 [facility] Comment on above: Performed By: #### S PUTGS #### Laboratory [address] [address] [address] Carey Fisher MANUAL DIFF REQ NO Normal [facility] Comment on above: Performed By: #### S PUTGS #### Laboratory [address] [address] [address] Carey Fisher MCH (RBC) [Entitic mass] 21.3 pg Critically low 25.9-34.0 [facility] Comment on above: Performed By: #### S PUTGS #### Laboratory [address] [address] [address] Carey Fisher MCHC (RBC) [Mass/Vol] 28.6 g/dL Critically low 29.9-35.2 [facility] Comment on above: Performed By: #### S PUTGS #### Laboratory [address] [address] [address] Carey Fishre MCV (RBC) [Entitic vol] 74.3 fL Critically low 80.0-94.0 [facility] Comment on above: Performed By: #### S PUTGS #### Laboratory [address] [address] [address] Carey Fisher MONO # 0.3 103/ul Normal 0.3-0.8 [facility] Comment on above: Performed By: #### S PUTGS #### Laboratory [address] [address] [address] Carey Fisher Monocytes/100 WBC (Bld) 4.4 % Normal 1.7-12.0 [facility] Comment on above: Performed By: #### S PUTGS #### Laboratory [address] [address] [address] Carey Fisher NEUT # 4.9 103/ul Normal 1.4-6.5 [facility] Comment on above: Performed By: #### S PUTGS #### Laboratory [address] [address] [address] Carey Fisher Neutrophils/100 WBC (Bld) 79.7 % Critically high 43.0-75.0 [facility] Comment on above: Performed By: #### S PUTGS #### Laboratory [address] [address] [address] Carey Fisher Platelet mean volume (Bld) [Entitic vol] 10.3 fL Normal 9.5-13.5 [facility] Comment on above: Performed By: #### S PUTGS #### Laboratory [address] [address] [address] Carey Fisher PLT 304 103/ul Normal 150-450 The Comment on above: Performed By: #### S PUTGS #### Laboratory [address] [address] [address] Carey Fisher RBC 4.28 106/ul Critically low 4.70-6.[address] [facility] Comment on above: Performed By: #### S PUTGS #### Laboratory [address] [address] [address] Carey Fisher WBC 6.2 103/ul Normal 4.0-11.0 The Comment on above: Performed By: #### S PUTGS #### Laboratory [address] [address] [address] Carey Fisher PROF 14(COMP METB)on 022 Albumin [Mass/Vol] 3.7 g/dL Normal 3.4-5.0 [facility] Comment on above: Performed By: #### C MP #### [id number] [place] [address]Dr. Carey Fisher Albumin/Globulin [Mass ratio] 1.1 {ratio} Normal [facility] Comment on above: Performed By: #### C MP #### [id number] [place] [address]Dr. Jennyes Phillip ALP [Catalytic activity/Vol] 92 U/L Normal 46-116 [facility] Comment on above: Performed By: #### C MP #### [id number] [place], [place] [address]Dr. Carey Fisher ALT [Catalytic activity/Vol] 21 U/L Normal 16-63 [facility] Comment on above: Performed By: #### C MP #### [id number] [place], [place] [address]Dr. Carey Fisher Anion gap [Moles/Vol] 17.5 mmol/L Normal [facility] Comment on above: Performed By: #### C MP #### [address] [place], [place] [address]Dr. Carey Fisher AST [Catalytic activity/Vol] 33 U/L Normal 15-37 [facility] Comment on above: Performed By: #### C MP #### [address] [place], [place] [address]Dr. Carey Fisher Bilirubin [Mass/Vol] 0.3 mg/dL Normal 0.2-1.0 [facility] Comment on above: Performed By: #### C MP #### [address] [place], [place] [address]Dr. Carey Fisher Calcium [Mass/Vol] 8.3 mg/dL Critically low 8.5-10.1 [facility] Comment on above: Performed By: #### C MP #### [id number] [place] [address]Dr. Carey Fisher Chloride [Moles/Vol] 107 mmol/L Normal 98-107 [facility] Comment on above: Performed By: #### C MP #### [id number] [place] [address]Dr. Carey Fisher CO2 [Moles/Vol] 20.4 mmol/L Critically low 21.0-32.0 The Comment on above: Performed By: #### C MP #### [id number] [place] [address]Dr. Carey Fisher Creatinine [Mass/Vol] 1.16 mg/dL Normal 0.70-1.30 The Comment on above: Performed By: #### C MP #### [id number] [place] [address]Dr. Carey Fisher EGFR-AF SYRIAN >60 Normal >=60 [facility] Comment on above: Performed By: #### C MP #### [address] [place], [place] [address]Dr. Carey Fisher EGFR-NON AF SYRIAN >60 Normal >=60 The Comment on above: Performed By: #### C MP #### [id number] [place], [place] [address]Dr. Carey Fisher Globulin (S) [Mass/Vol] 3.3 g/dL Normal The Comment on above: Performed By: #### C MP #### [address] [place], [place] [address]Dr. Carey Fisher Glucose [Mass/Vol] 90 mg/dL Normal 74-106 [facility] Comment on above: Performed By: #### C MP #### [id number] [place] [address]Dr. Caery Fisher Potassium [Moles/Vol] 4.6 mmol/L Normal 3.5-5.1 The Comment on above: Performed By: #### C MP #### [address] [place], [place] [address]Dr. Carey Fisher Protein [Mass/Vol] 7.0 g/dL Normal 6.4-8.2 [facility] Comment on above: Performed By: #### C MP #### [id number] [place] [id number]. Carey Fisher Sodium [Moles/Vol] 138 mmol/L Normal 136-145 [facility] Comment on above: Performed By: #### C MP #### [id number] [place] [id number]. Carey Fisher Urea nitrogen [Mass/Vol] 22.0 mg/dL Critically high 7.0-18.0 The Comment on above: Performed By: #### C MP #### [address] [place] [id number]. Carey Phillip Urea nitrogen/Creatinine [Mass ratio] 19.0 mg/mg Normal [facility] Comment on above: Performed By: #### C MP #### [id number] [place] [address]Dr. Carey Fisher Respirationon 09-16-2021 Heart Rate Regular [facility] [facility] [address] [place] Work Phone: Respiration Normal [facility] [place] Work Phone: Tobacco Screening.on 022 Fall risk assessment a) No falls within the last year [facility] [address] [place] Work Phone: Tobacco use status CPHS b) No [facility] [address] [place] Work Phone: CBC AUTO DIFFon 09-12-2021 BASO # 0.0 103/ul Normal 0.0-0.1 [facility] Comment on above: Performed By: #### C BC #### [id number] [place] [id number]. Carey Phillip Basophils/100 WBC (Bld) 0.0 % Critically low 0.2-2.0 The Comment on above: Performed By: #### C BC #### [id number] [place] [phone]. Carey Phillip EO # 0.0 103/ul Normal 0.0-0.7 [facility] Comment on above: Performed By: #### C BC #### [id number] [place] [address]Dr. Carey Fisher Eosinophils/100 WBC (Bld) 0.0 % Critically low 0.9-7.0 The Comment on above: Performed By: #### C BC #### [id number] [place], [place] [address]Dr. Carey Fisher Erythrocyte distribution width (RBC) [Ratio] 18.3 % Critically high 11.0-15.0 [facility] Comment on above: Performed By: #### C BC #### Uhrxp[address]xes[address] [place], [place] [address]Dr. Carey Fisher Hematocrit (Bld) [Volume fraction] 32.5 % Critically low 42.0-54.0 [facility] Comment on above: Performed By: #### C BC #### [address] [place], [place] [address]Dr. Carey Fisher Hemoglobin (Bld) [Mass/Vol] 9.4 g/dL Critically low 14.0-18.0 [facility] Comment on above: Performed By: #### C BC #### [id number] [place], [place] [address]Dr. Carey Fisher IG # 0.02 10e3/ul Normal 0.00-0.03 The Comment on above: Performed By: #### C BC #### [id number] [place], [place] [address]Dr. Carey Fisher IG % 0.4 % Normal 0.0-0.5 The Comment on above: Performed By: #### C BC #### [address]ckxhqis[address] [place], [place] [address]Dr. Carey Fisher LYMPH # 1.7 103/ul Normal 1.2-3.8 The Comment on above: Performed By: #### C BC #### [id number] [place], [place] [address]Dr. Carey Fisher Lymphocytes/100 WBC (Bld) 33.7 % Normal 20.5-60.0 [facility] Comment on above: Performed By: #### C BC #### [id number] [place] [address]Dr. Carey Fisher MANUAL DIFF REQ NO Normal [facility] Comment on above: Performed By: #### C BC #### [address]vx[address] [place] [phone]. Carey Fisher MCH (RBC) [Entitic mass] 21.5 pg Critically low 25.9-34.0 [facility] Comment on above: Performed By: #### C BC #### [address] [place] [address]Dr. Carey Fisher MCHC (RBC) [Mass/Vol] 28.9 g/dL Critically low 29.9-35.2 The Comment on above: Performed By: #### C BC #### [address] [place], [place] [address]Dr. Carey Fisher MCV (RBC) [Entitic vol] 74.2 fL Critically low 80.0-94.0 [facility] Comment on above: Performed By: #### C BC #### [address]ftmtsor[address] [place], [place] [address]Dr. Carey Fisher MONO # 0.5 103/ul Normal 0.3-0.8 The Comment on above: Performed By: #### C BC #### G[address] [place], [place] [address]Dr. Carey Fisher Monocytes/100 WBC (Bld) 10.5 % Normal 1.7-12.0 The Comment on above: Performed By: #### C BC #### [address] [place], [place] [address]Dr. Carey Fisher NEUT # 2.8 103/ul Normal 1.4-6.5 The Comment on above: Performed By: #### C BC #### Rx[address]trx[address] [place], [place] [address]Dr. Carey iFsher Neutrophils/100 WBC (Bld) 55.4 % Normal 43.0-75.0 [facility] Comment on above: Performed By: #### C BC #### [address]kw[address]tw[address] [place] [address]Dr. Carey Fisher Platelet mean volume (Bld) [Entitic vol] 9.4 fL Critically low 9.5-13.5 [facility] Comment on above: Performed By: #### C BC #### [address] [place] [address]Dr. Carey Fisher PLT 289 103/ul Normal 150-450 [facility] Comment on above: Performed By: #### C BC #### [address]bj[address] [place] [address]DrSindi Fisher RBC 4.38 106/ul Critically low 4.70-6.10 [facility] Comment on above: Result Comment: 1+ E LLIPTOCYTE 1+ OVALOCYTE Performed By: #### C BC #### [address]jc[address] [place] [address]DrSindi Fisher WBC 5.0 103/ul Normal 4.0-11.0 [facility] Comment on above: Performed By: #### C BC #### [address] [place], [place] [address]Dr. Carey Fisher PROF CHEM 8 (BAS METB)on Anion gap [Moles/Vol] 11.4 mmol/L Normal [facility] Comment on above: Performed By: #### S PUTGS #### Laboratory [address] [place] [address] Dr. Carey Fisher Calcium [Mass/Vol] 8.2 mg/dL Critically low 8.5-10.1 [facility] Comment on above: Performed By: #### S PUTGS #### Laboratory [address] [place] [address] Dr. Carey Fisher Chloride [Moles/Vol] 106 mmol/L Normal 98-107 [facility] Comment on above: Performed By: #### S PUTGS #### Laboratory [address] [place] [address] Dr. Carey Fisher CO2 [Moles/Vol] 24.2 mmol/L Normal 21.0-32.0 [facility] Comment on above: Performed By: #### S PUTGS #### Laboratory [address] [address] [address] Carey Fisher Creatinine [Mass/Vol] 1.12 mg/dL Normal 0.70-1.30 [facility] Comment on above: Performed By: #### S PUTGS #### Laboratory [address] [address] [address] Carey Fisher EGFR-AF SYRIAN >60 Normal >=60 [facility] Comment on above: Performed By: #### S PUTGS #### Laboratory [address] [address] [address] Carey Fisher EGFR-NON AF SYRIAN >60 Normal >=60 [facility] Comment on above: Performed By: #### S PUTGS #### Laboratory [address] [address] [address] Carey Fisher Glucose [Mass/Vol] 97 mg/dL Normal 74-106 [facility] Comment on above: Performed By: #### S PUTGS #### Laboratory [address] [address] [address] Carey Fisher Potassium [Moles/Vol] 3.6 mmol/L Normal 3.5-5.1 [facility] Comment on above: Performed By: #### S PUTGS #### Laboratory [address] [address] [address] Carey Fisher Sodium [Moles/Vol] 138 mmol/L Normal 136-145 [facility] Comment on above: Performed By: #### S PUTGS #### Laboratory [address] [address] [address] Carey Fisher Urea nitrogen [Mass/Vol] 20.0 mg/dL Critically high 7.0-18.0 [facility] Comment on above: Performed By: #### S PUTGS #### Laboratory [address] [address] [address] Carey Fisher Urea nitrogen/Creatinine [Mass ratio] 17.9 mg/mg Normal The Comment on above: Performed By: #### S PUTGS #### Laboratory [address] [address] [address] Carey Fisher Heart Rateon 08-21-2021 Heart Rate Regular -Neurology- [place] [address] DO Work Phone: Heart Rate Normal [facility] [place] [address] DO Work Phone: Basophils Auto (Bld) [#/Vol] Ordered By: Leonor Bryant on 07-30-2021 Basophils (Bld) [#/Vol] 0.0 10*3/uL 0.0-0.2 [facility] Basophils/100 WBC Auto (Bld) Ordered By: Leonor Bryant on 07-30-2021 Basophils/100 WBC (Bld) 0.2 % [facility] Blood anisocytosis detection Ordered By: Leonor Bryant on 07-30-2021 Anisocytosis Ql (Bld) Moderate [facility] Blood hemoglobin measurement (mass/volume)Ordered By: Leonor Bryant on 07-30-2021 Hemoglobin (Bld) [Mass/Vol] 9.7 g/dL 13.0-17.0 [facility] Blood leukocytes automated c ount (number/volume)Ordered By: Leonor Bryant on 07-30-2021 WBC (Bld) [#/Vol] 5.1 10*3/uL 4.5-11.0 [facility] Cholesterol [Mass/volume] in Serum or PlasmaOrdered By: Leonor Bryant on 07-30-2021 Cholesterol [Mass/Vol] 159 mg/dL 140-200 [facility] Comment on above: Chol less than 200 m g/dl low riskChol 201-239 mg/dl borderline riskChol 240 mg/dl and greater high risk Cholesterol in LDL Calc [Mas s/Vol]Ordered By: Leonor Bryant on 07-30-2021 Cholesterol in LDL [Mass/Vol] 96 mg/dL 0-100 [facility] Comment on above: LDL ATP III CLASSIFI CATIONLDL less than 100 mg/dL OptimalLDL 100-129 mg/dL Near or above optimalLDL 130-159 mg/dL Borderline highLDL 160-189 mg/dL HighLDL greater than 189 mg/dL Very high Cholesterol in VLDL Calc [Ma ss/Vol]Ordered By: Leonor Bryant on 07-30-2021 Cholesterol in VLDL [Mass/Vol] 17 mg/dL [facility] Creatinine and Glomerular fi ltration rate.predicted panel (S/P/Bld)Ordered By: Leonor Bryant on 07-30-2021 Creatinine [Mass/Vol] 0.92 mg/dL 0.64-1.[address] [facility] Eosinophils Auto (Bld) [#/Vo l]Ordered By: Leonor Bryant on 07-30-2021 Eosinophils (Bld) [#/Vol] 0.0 10*3/uL 0.0-0.45 [facility] Eosinophils/100 WBC Auto (Bl d)Ordered By: Leonor Bryant on 07-30-2021 Eosinophils/100 WBC (Bld) 0.0 % [facility] Erythrocyte distribution wid th Auto (RBC) [Ratio]Ordered By: Leonor Bryant on 07-30-2021 Erythrocyte distribution width (RBC) [Ratio] 18.9 % 12.0-14.8 [facility] Estimated glomerular filtrat ion rate (GFR) non- AmericanOrdered By: Leonor Bryant on 07-30-2021 GFR/1.73 sq M.predicted among non-blacks MDRD (S/P/Bld) [Vol rate/Area] > 60 mL/Min [facility] Hematocrit Auto (Bld) [Volum e fraction]Ordered By: Leonor Bryant on 07-30-2021 Hematocrit (Bld) [Volume fraction] 30.7 % 38.8-50.0 [facility] Hypochromia detectionOrdered By: Leonor Bryant on 07-30-2021 Hypochromia Ql (Bld) Slight [facility] Laboratory - Hematology and Cell countsOrdered By: Leonor Bryant on 07-30-2021 Nucleated RBC/100 WBC (Bld) [Ratio] 0.0 % 0-0.5 [facility] Lymphocytes Auto (Bld) [#/Vo l]Ordered By: Leonor Bryant on 07-30-2021 Lymphocytes (Bld) [#/Vol] 1.6 10*3/uL 1.00-4.8 [facility] Lymphocytes/100 WBC Auto (Bl d)Ordered By: Leonor Bryant on 07-30-2021 Lymphocytes/100 WBC (Bld) 31.8 % [facility] MCH Auto (RBC) [Entitic mass ]Ordered By: Leonor Bryant on 07-30-2021 MCH (RBC) [Entitic mass] 22.1 pg 27.5-35.2 [facility] MCHC Auto (RBC) [Mass/Vol]Or dered By: Leonor Bryant on 07-30-2021 MCHC (RBC) [Mass/Vol] 31.6 g/dL 32.5-35.6 [facility] MCV Auto (RBC) [Entitic vol] Ordered By: Leonor Bryant on 07-30-2021 MCV (RBC) [Entitic vol] 69.8 fL 83.5-101 [facility] Monocytes Auto (Bld) [#/Vol] Ordered By: Leonor Bryant on 07-30-2021 Monocytes (Bld) [#/Vol] 0.4 10*3/uL 0.0-0.8 [facility] Monocytes/100 WBC Auto (Bld) Ordered By: Leonor Bryant on 07-30-2021 Monocytes/100 WBC (Bld) 7.2 % [facility] Neutrophils Auto (Bld) [#/Vo l]Ordered By: Leonor Bryant on 07-30-2021 Neutrophils (Bld) [#/Vol] 3.1 10*3/uL 1.8-7.7 [facility] Neutrophils/100 WBC Auto (Bl d)Ordered By: Leonor Bryant on 07-30-2021 Neutrophils/100 WBC (Bld) 60.8 % [facility] No Panel InformationOrdered By: Leonor Bryant on 07-30-2021 Acanthocytes Slight [facility] CBC Comment See comment [facility] Comment on above: There is significant microcytosis which suggests the possibility of iron deficiency. Consider serum ferritin and iron studies. Estimated GFR () > 60 mL/Min [facility] Comment on above: GFR estimated refere nce range: According to KDOQI guidelines, <60 ml/min/1.73m2 is sufficient to diagnose a patient with chronic kidney disease. Microcytosis Moderate [facility] Pharmacy Creatinine Clearance (Chem 85.39 [facility] Platelet Estimate Normal Normal [facility] Platelet Morphology Comment Normal Normal [facility] Ovalocyte detectionOrdered B y: Leonor Bryant on 07-30-2021 Ovalocytes LM Ql (Bld) Slight [facility] Platelet mean volume Auto (B ld) [Entitic vol]Ordered By: Leonor Bryant on 07-30-2021 Platelet mean volume (Bld) [Entitic vol] 7.5 fL 6.6-10.1 [facility] Platelets Auto (Bld) [#/Vol] Ordered By: Leonor Bryant on 07-30-2021 Platelets (Bld) [#/Vol] 190 10*3/uL 150-450 [facility] RBC Auto (Bld) [#/Vol]Ordere d By: Leonor Bryant on 07-30-2021 RBC (Bld) [#/Vol] 4.40 10*6/uL 3.90-5.60 [facility] RBC morphologyOrdered By: Liza Bryant on 07-30-2021 RBC morphology finding Nom (Bld) N/A [facility] Serum or plasma calcium javan urement (mass/volume)Ordered By: Leonor Bryant on 07-30-2021 Calcium [Mass/Vol] 8.2 mg/dL 8.2-10.2 [facility] Serum or plasma chloride hansa surement (moles/volume)Ordered By: Leonor Bryant on 07-30-2021 Chloride [Moles/Vol] 112 mmol/L 95-114 [facility] Serum or plasma glucose javan urement (mass/volume)Ordered By: Leonor Bryant on 07-30-2021 Glucose [Mass/Vol] 102 mg/dL 70-100 [facility] Comment on above: ADA recommended refe rence rangeRandom Glucose Reference Range is dependent on time and content of last meal. Glucose of more than 200 mg/dL in a nonstressed, ambulatory subject supports the diagnosis of Diabetes Mellitus. Serum or plasma high density lipoprotein (HDL) cholesterol measurementOrdered By: Leonor Bryant on 07-30-2021 Cholesterol in HDL [Mass/Vol] 46 mg/dL [facility] Comment on above: HDL CHOL ATP-III CLA SSIFICATION Cardiovascular RiskHDL > or equal to 60 mg/dL LOWHDL < 40 mg/dL HIGH Serum or plasma potassium me asurement (moles/volume)Ordered By: Leonor Bryant on 07-30-2021 Potassium [Moles/Vol] 3.7 mmol/L 3.5-5.[address] [facility] Serum or plasma sodium measu rement (moles/volume)Ordered By: Leonor Bryant on 07-30-2021 Sodium [Moles/Vol] 139 mmol/L 136-146 [facility] Serum or plasma total carbon dioxide measurement (moles/volume)Ordered By: Leonor Bryant on 07-30-2021 CO2 [Moles/Vol] 20.0 mmol/L 22.0-30.0 [facility] Serum or plasma total choles terol/high density lipoprotein (HDL) cholesterol mass ratOrdered By: Leonor Bryant on 07-30-2021 Cholesterol.total/Cho lesterol in HDL [Mass ratio] 3.5 {ratio} [facility] Serum or plasma urea nitroge n measurement (mass/volume)Ordered By: Leonor Bryant on 07-30-2021 Urea nitrogen [Mass/Vol] 18 mg/dL 9- [facility] Teardrop cell detectionOrder ed By: Leonor Bryant on 07-30-2021 Dacrocytes LM Ql (Bld) Slight [facility] Triglyceride [Mass/volume] i n Serum or PlasmaOrdered By: Leonor Bryant on 07-30-2021 Triglyceride [Mass/Vol] 86 mg/dL 35-149 [facility] Comment on above: TRIG ATP III CLASSIF ICATIONTRIG less than 150 mg/dL NormalTRIG 150-199 mg/dL Borderline highTRIG 200-500 mg/dL High TRIG greater than 500 mg/dL Very highStandard traceable to the Center for Disease Conrtrol and Prevention (CDC) test method. Automated erythrocytes count in urine sediment (number/area)Ordered By: Leonor Bryant on 07-29-2021 RBC Auto (Urine sed) [#/Area] None seen [HPF] [facility] Automated leukocytes count i n urine sediment (number/area)Ordered By: Leonor Bryant on 07-29-2021 WBC Auto (Urine sed) [#/Area] 10-19 [HPF] [facility] Bilirubin Test strip Ql (U)O rdered By: Leonor Bryant on 07-29-2021 Bilirubin Ql (U) Negative Negative [facility] [facility] Color Auto (U)Ordered By: Ly arin Bryant on 07-29-2021 Color (U) Yellow Yellow [facility] Ketones Auto test strip (U) [Mass/Vol]Ordered By: Leonor Bryant on 07-29-2021 Ketones (U) [Mass/Vol] Trace Negative [facility] Laboratory - Chemistry and C hemistry - challengeOrdered By: Leonor Bryant on 07-29-2021 Magnesium [Mass/Vol] 2.0 mg/dL 1.6-2.6 [facility] Natriuretic peptide B (Bld) [Mass/Vol] 90.0 pg/mL 5-100 [facility] Laboratory - UrinalysisOrder ed By: Leonor Bryant on 07-29-2021 Hyaline casts LM Ql (Urine sed) 0-8 [LPF] [facility] Nitrite Test strip Ql (U)Ord ered By: Leonor Bryant on 07-29-2021 Nitrite Ql (U) Negative Negative [facility] No Panel InformationOrdered By: Ketan Heard on 07-29-2021 D-Dimer Quantitative (PE/DVT) 250 ng/mL 0-243 [facility] Comment on above: The reference range for D-dimer is <243 ng/mL D-dimer units.D-dimer results must be used in conjunction with a clinicalpretest probability (PTP) assessment model for deep veinthrombosis (DVT) and pulmonary embolism (PE). Results <230ng/mL d-dimer units can be used as a negative predictor inpatients with low or moderate probability for DVT/PE.Results above the exclusion threshold of 230 ng/ml D-dimerunits for DVT/PE may indicate the need for furtherdiagnostic testing.D-Dimer can be increased in hospitalized patients due toco-morbid conditions. Protein Auto test strip (U) [Mass/Vol]Ordered By: Leonor Bryant on 07-29-2021 Protein (U) [Mass/Vol] Negative Negative [facility] Specific gravity Auto test s trip (U) [Rel density]Ordered By: Leonor Bryant on 07-29-2021 Specific gravity (U) [Rel density] 1.015 1.001-1.030 [facility] Squamous epithelial cells de tection in urine sediment by light microscopyOrdered By: Leonor Bryant on 07-29-2021 Epithelial cells.squamous LM Ql (Urine sed) None seen [HPF] [facility] Troponin I.cardiac [Mass/vol ume] in Serum or Plasma by High sensitivity methodOrdered By: Leonor Bryant on 07-29-2021 Troponin I.cardiac High sensitivity method [Mass/Vol] 20 pg/mL 0-20 [facility] Urine bacteria detection by automated methodOrdered By: Leonor Bryant on 07-29-2021 Bacteria Auto Ql (U) 2+ None Seen [facility] Urine clarity by refractomet ry automatedOrdered By: Leonor Bryant on 07-29-2021 Clarity Refractometry automated (U) Clear Clear [facility] Urine glucose measurement by automated test strip (mass/volume)Ordered By: Leonor Bryant on 07-29-2021 Glucose Auto test strip (U) [Mass/Vol] Normal mg/dL Normal [facility] Urine hemoglobin detection b y automated test stripOrdered By: Leonor Bryant on 07-29-2021 Hemoglobin Auto test strip Ql (U) Negative Negative [facility] Urine leukocyte esterase det ection by automated test stripOrdered By: Leonor Bryant on 07-29-2021 Leukocyte esterase Auto test strip Ql (U) 2+ Negative [facility] Urobilinogen Auto test strip (U) [Mass/Vol]Ordered By: Leonor Bryant on 07-29-2021 Urobilinogen (U) [Mass/Vol] Normal mg/dL Normal [facility] pH Auto test strip (U)Ordere d By: Leonor Bryant on 07-29-2021 pH (U) 5.5 [pH] 5.0-9.0 [facility] Heart Rateon 06-19-2021 Heart Rate Regular [facility] Work Phone: Heart Rate Normal [email or web address] Work Phone: Complete Blood Count + Camelia norris 06-18-2021 Basophils/100 WBC (Bld) 0.2 % 0.0 - 2.0 [email or web address] Work Phone: Erythrocyte distribution width (RBC) [Ratio] 19.2 % above high threshold See Below [email or web address] Work Phone: Comment on above: Reference Range: 11. 5 - 14.5 Hematocrit (Bld) [Volume fraction] 38.4 % below low threshold See Below [email or web address] Work Phone: Comment on above: Reference Range: 41. 0 - 52.0 Hemoglobin (Bld) [Mass/Vol] 10.8 g/dL below low threshold See Below [email or web address] Work Phone: Comment on above: Reference Range: 13. 5 - 17.5 Lymphocytes/100 WBC (Bld) 13.4 % See Below [email or web address] Work Phone: Comment on above: Reference Range: 13. 0 - 44.0 MCHC (RBC) [Mass/Vol] 28.1 g/dL below low threshold See Below [email or web address] Work Phone: Comment on above: Reference Range: 32. 0 - 36.0 MCV (RBC) [Entitic vol] 79 fL below low threshold 80 - 100 [email or web address] Work Phone: Monocytes/100 WBC (Bld) 3.8 % 2.0 - 10.0 [email or web address] Work Phone: Neutrophils/100 WBC (Bld) 81.5 % See Below [email or web address] Work Phone: Comment on above: Reference Range: 40. 0 - 80.0 Platelets (Bld) [#/Vol] 290 10*3/uL 150 - 450 [email or web address] Work Phone: RBC (Bld) [#/Vol] 4.87 {x10E12/L} See Below [employer] Work Phone: Comment on above: Reference Range: 4.5 0 - 5.90 WBC (Bld) [#/Vol] 10.0 10*3/uL 4.4 - 11.3 [employer] Work Phone: Complete Blood Count + Differential 0.02 {x10E9/L} See Below [email or web address] Work Phone: Comment on above: Reference Range: 0.0 0 - 0.10 Complete Blood Count + Differential 0.38 {x10E9/L} See Below [email or web address] Work Phone: Comment on above: Reference Range: 0.1 0 - 1.00 Complete Blood Count + Differential 1.34 {x10E9/L} See Below [email or web address] Work Phone: Comment on above: Reference Range: 1.2 0 - 4.80 Complete Blood Count + Differential 8.17 {x10E9/L} above high threshold See Below [email or web address] Work Phone: Comment on above: Reference Range: 1.2 0 - 7.70 Complete Blood Count + Differential 1.1 % above high threshold 0.0 - 0.9 [email or web address] Work Phone: Comment on above: Immature Granulocyte Count (IG) includes promyelocytes, myelocytes and metamyelocytes but does not include bands. Percent differential counts (%) should be interpreted in the context of the absolute cell counts (cells/L). Cult, Urineon 06-18-2021 Bacteria identified Cx Nom (U) Abnormal [employer] 2099 DO Work Phone: Laboratory - Chemistry and C hemistry - challengeon 06-18-2021 Albumin BCP dye [Mass/Vol] 4.0 g/dL 3.4 - 5.0 [employer] Work Phone: ALP [Catalytic activity/Vol] 65 U/L 33 - 136 [email or web address] Work Phone: ALT With P-5'-P [Catalytic activity/Vol] 12 U/L 10 - 52 [email or web address] Work Phone: Comment on above: Patients treated wit h Sulfasalazine may generate falsely decreased results for ALT. Anion gap [Moles/Vol] 11 mmol/L 10 - 20 [employer] Work Phone: AST With P-5'-P [Catalytic activity/Vol] 13 U/L 9 - 39 [email or web address] Work Phone: Bilirubin [Mass/Vol] 0.3 mg/dL 0.0 - 1.2 [employer] Work Phone: Calcium [Mass/Vol] 8.9 mg/dL 8.6 - 10.3 [employer] Work Phone: Chloride [Moles/Vol] 106 mmol/L 98 - 107 [employer] Work Phone: CO2 [Moles/Vol] 24 mmol/L 21 - 32 [employer] Work Phone: Creatinine [Mass/Vol] 1.31 mg/dL above high threshold See Below [email or web address] Work Phone: Comment on above: Reference Range: 0.5 0 - 1.30 Glucose [Mass/Vol] 90 mg/dL 74 - 99 [employer] Work Phone: Potassium [Moles/Vol] 4.2 mmol/L 3.5 - 5.3 [employer] Work Phone: Protein [Mass/Vol] 7.2 g/dL 6.4 - 8.2 [employer] Work Phone: Sodium [Moles/Vol] 137 mmol/L 136 - 145 [employer] Work Phone: Urea nitrogen [Mass/Vol] 30 mg/dL above high threshold 6 - 23 [employer] Work Phone: No Panel Informationon 06-18 62 {mL/min/1.73m2} >90 [employer] Work Phone: Comment on above: CALCULATIONS OF ANTHONY MATED GFR ARE PERFORMED USING THE 2020 CKD-EPI STUDY REFIT EQUATION WITHOUT THE RACE VARIABLE FOR THE IDMS-TRACEABLE CREATININE METHODS.https://jasn.asnjournals.org/content/early/ N.1251699429 Urinalysison 06-18-2021 Color (U) YELLOW See Below [email or web address] Work Phone: Comment on above: Reference Range: STR AW,YELLOW Glucose Ql (U) Negative NEGATIVE [employer] Work Phone: Ketones Ql (U) Negative NEGATIVE [employer] Work Phone: Leukocyte esterase Test strip Ql (U) TRACE Abnormal NEGATIVE [email or web address] Work Phone: pH (U) 6.0 [pH] 5.0 - 8.0 [email or web address] Work Phone: Protein (U) [Mass/Vol] 30 (1+) Abnormal NEGATIVE [email or web address] Work Phone: RBC (U) [#/Vol] TRACE Abnormal NEGATIVE [employer] Work Phone: Specific gravity (U) [Rel density] 1.035 1 See Below [email or web address] Work Phone: Comment on above: Reference Range: 1.0 05 - 1.035 Urinalysis Negative NEGATIVE [email or web address] Work Phone: Urinalysis <2.0 0.0 - 1.9 [email or web address] Work Phone: Urinalysis HAZY CLEAR [email or web address] Work Phone: Urinalysis, Microscopicon Urinalysis, Microscopic 1+ Abnormal [facility] Work Phone: Urinalysis, Microscopic FEW [facility] Work Phone: Urinalysis, Microscopic 0-5 0-5 [facility] Work Phone: Urinalysis, Microscopic 5-20 Abnormal 0-5 [facility] Work Phone: Tobacco Screening.on 022 Fall risk assessment a) No falls within the last year [facility] 2100 DO Work Phone: Tobacco use status CPHS b) No [facility] 2100 DO Work Phone: CT Chest High Resolutionon 0 06-05-2021 CT Chest High Resolution Normal -Pulmonary Medicine-[facility] an [address] [place] Work Phone: TH CT CHEST HIGH RESOLUTIONo n 06-05-[address] CHEST HIGH RESOLUTION Patient Name: VELIA BAGLEY STUDY: CT CHEST HIGH RESOLUTION; 06/05/2021 1:47 pm INDICATION: Shortness of breath J44.9: Asthma with COPD U09.9: COVID-19 long hauler R06.02: SOB (shortness of breath) on exertion. History of COVID-19 infection December 2020. COMPARISON: High-resolution chest CT 01/02/2021 ACCESSION NUMBER(S): [id number] ORDERING CLINICIAN: RICH MAGANA TECHNIQUE: Using helical multidetector technique, volumetric data acquisition of the chest was obtained without intravenous administration of contrast material under the high resolution chest CT protocol. Examination includes contiguous slices through the chest in supine positioning during inspiration, noncontiguous axial slices in supine positioning during expiration and prone positioning during inspiration. FINDINGS: LUNGS AND AIRWAYS: Assessment limited by breathing artifacts and expiratory phase imaging. The trachea and central airways are patent. No endobronchial lesion. No significant change is seen in the scattered residual ground-glass opacities in the upper and lower lobes, with associated parenchymal bands. No evidence of traction bronchiectasis or honeycombing. No new consolidation, pleural effusion or pneumothorax. Expiratory imaging demonstrates no significant air-trapping. Prone imaging reveals improvement of bibasilar atelectasis. No worrisome discrete lung nodules or masses. Punctate calcified granuloma in the middle lobe is stable. MEDIASTINUM AND MANDI, LOWER NECK AND AXILLA: The visualized thyroid gland is within normal limits. No evidence of thoracic lymphadenopathy by CT criteria. Esophagus appears within normal limits as seen. HEART AND VESSELS: The thoracic aorta size is within the upper limits of normal, without atherosclerotic calcifications. Main pulmonary artery and its branches are normal in caliber. Mild coronary artery calcifications are seen, predominantly in the LAD branch.The study is not optimized for evaluation of coronary arteries. The cardiac chambers are not enlarged. Heart is at the top limits of normal in size. Trace pericardial effusion is present. UPPER ABDOMEN: There is stable diffuse fatty replacement of the pancreas. No other significant abnormalities. CHEST WALL AND OSSEOUS STRUCTURES: Redemonstration of mild bilateral gynecomastia, slightly more pronounced on the left. There are no suspicious osseous lesions. Multilevel degenerative changes are present in the visualized spine. IMPRESSION: 1. Overall stable residual faint ground-glass opacities and parenchymal bands in the upper and lower lobes, representing sequela of prior multilobar COVID-19 pneumonia. No evidence of pulmonary fibrosis. 2. Mild coronary artery calcifications. Trace pericardial effusion. 3. Other findings as above. I personally reviewed the images/study and I agree with the findings as stated. This study was interpreted at [facility], [place], [place]. Electronically signed by: SHANIQUA MUNSON MD Normal [facility] C Reactive Protein, Serumon 06-03-2021 CRP [Mass/Vol] 0.10 mg/dL [address] Work Phone: Comment on above: REF VALUE< 1.00 Complete Blood Count + Diffe rentialon 06-03-2021 Basophils/100 WBC (Bld) 0.2 % 0.0 - 2.[address] Work Phone: Erythrocyte distribution width (RBC) [Ratio] 19.7 % above high threshold See Below [address] Work Phone: Comment on above: Reference Range: 11. 5 - 14.5 Hematocrit (Bld) [Volume fraction] 35.8 % below low threshold See Below [place] [address] [place] Work Phone: [phone] Comment on above: Reference Range: 41. 0 - 52.0 Hemoglobin (Bld) [Mass/Vol] 10.3 g/dL below low threshold See Below [facility] [address] [place] Work Phone: [phone] Comment on above: Reference Range: 13. 5 - 17.5 Lymphocytes/100 WBC (Bld) 35.0 % See Below [address] Work Phone: [phone] Comment on above: Reference Range: 13. 0 - 44.0 MCHC (RBC) [Mass/Vol] 28.8 g/dL below low threshold See Below [address] Work Phone: [phone] Comment on above: Reference Range: 32. 0 - 36.0 MCV (RBC) [Entitic vol] 78 fL below low threshold 80 - [address] Work Phone: [phone] Monocytes/100 WBC (Bld) 8.5 % 2.0 - 10.[address] Work Phone: [phone] Neutrophils/100 WBC (Bld) 55.7 % See Below [address] Work Phone: [phone] Comment on above: Reference Range: 40. 0 - 80.0 Platelets (Bld) [#/Vol] 251 10*3/uL 150 - [address] Work Phone: [phone] RBC (Bld) [#/Vol] 4.60 {x10E12/L} See Below [address] Work Phone: [phone] Comment on above: Reference Range: 4.5 0 - 5.90 WBC (Bld) [#/Vol] 6.2 10*3/uL 4.4 - 11.[address] Work Phone: [phone] Complete Blood Count + Differential 0.01 {x10E9/L} See Below [facility] 130 [place] Work Phone: Comment on above: Reference Range: 0.0 0 - 0.10 Complete Blood Count + Differential 0.53 {x10E9/L} See Below [address] Work Phone: Comment on above: Reference Range: 0.1 0 - 1.00 Complete Blood Count + Differential 2.18 {x10E9/L} See Below [address] Work Phone: Comment on above: Reference Range: 1.2 0 - 4.80 Complete Blood Count + Differential 3.46 {x10E9/L} See Below [address] Work Phone: Comment on above: Reference Range: 1.2 0 - 7.70 Complete Blood Count + Differential 0.6 % 0.0 - 0.[address] Work Phone: Comment on above: Immature Granulocyte Count (IG) includes promyelocytes, myelocytes and metamyelocytes but does not include bands. Percent differential counts (%) should be interpreted in the context of the absolute cell counts (cells/L). Cortisol A.M.on 06-03-2021 Cortisol AM peak specimen [Mass or moles/Vol] 3.2 ug/dL below low threshold 5.0 - 20.0 MG-[facility] Sleep-[address] Work Phone: Laboratory - Chemistry and C hemistry - challengeon 06-03-2021 Albumin BCP dye [Mass/Vol] 3.8 g/dL 3.4 - 5.[address] Work Phone: ALP [Catalytic activity/Vol] 74 U/L 33 - [address] Work Phone: ALT With P-5'-P [Catalytic activity/Vol] 10 U/L 10 - [address] Work Phone: Comment on above: Patients treated wit h Sulfasalazine may generate falsely decreased results for ALT. Anion gap [Moles/Vol] 11 mmol/L 10 - 20 [facility] [address] [place] Work Phone: AST With P-5'-P [Catalytic activity/Vol] 14 U/L 9 - 39 [facility] [address] [place] Work Phone: [phone] Bilirubin [Mass/Vol] 0.2 mg/dL 0.0 - 1.2 [facility] [address] [place] Work Phone: [phone] Calcium [Mass/Vol] 8.4 mg/dL below low threshold 8.6 - 10.3 [facility] [address] [place] Work Phone: [phone] Chloride [Moles/Vol] 104 mmol/L 98 - 107 [facility] 130 [place] Work Phone: [phone] CO2 [Moles/Vol] 25 mmol/L 21 - 32 [facility] [address] [place] Work Phone: [phone] Creatinine [Mass/Vol] 1.27 mg/dL See Below [facility] [address] [place] Work Phone: Comment on above: Reference Range: 0.5 0 - 1.30 Glucose [Mass/Vol] 56 mg/dL below low threshold 74 - 99 [facility] [address] [place] Work Phone: Iron [Mass/Vol] 16 ug/dL below low threshold 35 - 150 [facility] [address] [place] Work Phone: [phone] Iron binding capacity [Mass/Vol] 341 ug/dL 240 - 445 [facility] [address] [place] Work Phone: Potassium [Moles/Vol] 3.1 mmol/L below low threshold 3.5 - 5.3 [facility] [address] [place] Work Phone: Protein [Mass/Vol] 7.3 g/dL 6.4 - 8.2 [facility] [place] Work Phone: Sodium [Moles/Vol] 137 mmol/L 136 - 145 [facility] [address] [place] Work Phone: TSH Qn 1.48 m[IU]/L See Below [address] Work Phone: Comment on above: Reference Range: 0.4 4 - 3.98 TSH testing is performed using different testing methodology at [facility] than at other [facility]. Direct result comparisons should only be made within the same method. Urea nitrogen [Mass/Vol] 28 mg/dL above high threshold 6 - [address] Work Phone: Laboratory - Serology - non- microon 06-03-2021 Nuclear Ab Hep2 substrate Ql (S) Negative NEGATIVE [facility]-[address] Work Phone: Comment on above: The Antinuclear Anti body (MIRNA) test was performed using indirect immunofluorescence assay with HEp-2 cells slide. No Panel Informationon 06-03 33 pg/mL 0 - [address] Work Phone: Comment on above: . <100 pg/mL - Heart failure [id number] pg/mL - Intermediate probability of acute heart. failure exacerbation. Correlate with clinical. context and patient history. >=300 pg/mL - Heart Failure likely. Correlate with clinical. context and patient history.BNP testing is performed using different testing methodology at [facility] than at other [facility]. Direct result comparisons should only be made within the same method. 5 % below low threshold 25 - [address] Work Phone: 65 {mL/min/1.73m2} >[address] Work Phone: Comment on above: CALCULATIONS OF ANTHONY MATED GFR ARE PERFORMED USING THE 2020 CKD-EPI STUDY REFIT EQUATION WITHOUT THE RACE VARIABLE FOR THE IDMS-TRACEABLE CREATININE METHODS.https://jasn.asnjournals.org/content// N.5711764756 Rheumatoid Factor, Serum or Plasmaon 06-03-2021 Rheumatoid factor Nephelometry Qn (S) <10 0 - 15 [facility] [place] [address] [place] Work Phone: Sedimentation Rate, Erythroc yteon 06-03-2021 ESR (Bld) [Velocity] 15 mm/h 0 - 20 [facility] [address] [place] Work Phone: Vitamin B12, Serumon 022 Cobalamin (Vitamin B12) [Mass/Vol] 554 pg/mL 211 - 911 [facility] Sleep-[place] [address] [place] Work Phone: Tobacco Screening.on 022 Fall risk assessment b) One or more fall s in the last year [facility]- [place] 204 Work Phone: Tobacco use status CPHS b) No [facility]- [place] 204 Work Phone: Respirationon 05-15-2021 Heart Rate Regular [facility]- [place] 3300A Work Phone: Respiration Normal [facility]- [place] 33[address] Work Phone: Tobacco Screening.on 022 Fall risk assessment b) One or more fall s in the last year [facility] Medicine-[place] [address] [place] Work Phone: Tobacco use status CPHS b) No [facility] Medicine-[place] [address] [place] Work Phone: Respirationon 04-10-2021 Heart Rate Regular [facility]- [place] 170 DO Work Phone: Respiration Normal [facility]- [place] 170 DO Work Phone: Tobacco Screening.on 021 Fall risk assessment b) One or more fall s in the last year MP-Pulmonary Medicine-[facility] A2470 DO Work Phone: Tobacco use status CPHS b) No MP-Pulmonary Medicine-[facility] A2470 DO Work Phone: Clinical Event Note-Pulmonar y Function Testings interpretation 03-04-2021 Clinical Event Note-Pulmonary Function Testings interpretati Clinical Event: Clinical Event Note: TopicPulmonary Function Testings interpretation Details The following interpretation is based on the ATS/ERS standards and criteria: Bossman Neal et al., Interpretative strategies for lung function tests. ATS/ERS Task Force: Standardization of Lung Function Testing , Eur Respir J 2005. Reduced FVC may be due to obstructive lung disease. Co-existent restrictive disease cannot be excluded. Clinical correlation is recommended. Following the administration of a bronchodilator there was significant improvement in FEV1 or FVC as defined by an increase of 200cc and 12%. Elevated RV/TLC suggests air trapping; however TLC is reduced. Diffusion: The DLCO is moderately reduced (40-60 % of predicted). Diffusing capacity is reduced; it does not normalize when averaged over lung volume. Summary: Restrictive lung disease. Electronic Signatures: Jazmine Monaco) (Signed 05-Apr-2021 20:25) Authored: Clinical Event Note Last Updated: 05-Apr-2021 20:25 by Jazmine Monaco) Normal [facility] MRI Brain without Contraston 02-22-2021 MR Brain WO contrast Normal MP-N [facility] 204 Work Phone: NR MRI BRAIN WOon 02-22-2021 NR MRI BRAIN WO Patient Name: VELIA BAGLEY STUDY: MRI BRAIN WO; 02/22/2021 10:13 am INDICATION: Recurrent falls, dizziness, head trauma. COMPARISON: MRI brain dated 05/09/2017. ACCESSION NUMBER(S): [id number] ORDERING CLINICIAN: JACKI ALANIS TECHNIQUE: Standard multiplanar multisequence MR imaging was performed through the brain without intravenous contrast. Axial T2, FLAIR, DWI, gradient echo T2 and sagittal and coronal T1 weighted images of brain were acquired. FINDINGS: Parenchyma: There is no diffusion restriction abnormality to suggest acute infarct. No evidence of recent hemorrhage. There is no mass effect or midline shift. Unchanged tiny chronic microhemorrhage along the cortex of the posterior right parietal lobe (series 6, image 10). Otherwise no significant focal parenchymal signal abnormality. CSF Spaces: The ventricles, sulci and basal cisterns are within normal limits for age with mild generalized atrophy. Basilar cisterns are patent. Extra-axial spaces: No extra-axial fluid collection. Paranasal Sinuses: Visualized paranasal sinuses are clear. Mastoids: Clear. Orbits: Normal. Calvarium: No suspicious osseous marrow signal. IMPRESSION: No acute infarct, recent hemorrhage, or mass effect. Mild senescent changes with otherwise unremarkable MR appearance of the brain. Electronically signed by: SALLY LEE MD Normal [facility] Heart Rateon 02-21-2021 Heart Rate Regular -Neurology- [place] [address] [place] Work Phone: Heart Rate Normal -Neurology- [place] 170 DO Work Phone: Tobacco Screening.on Fall risk assessment b) One or more fall s in the last year [facility] [place] [facility] Work Phone: Tobacco use status [facility] b) No -Neurology- [place] [address] Work Phone: Tobacco Screening.on Fall risk assessment a) No falls within the last year -[employer] -[employer] 2100 DO Work Phone: Tobacco use status [facility] b) No [employer] -[employer] 2100 DO Work Phone: Antibody Assay, Diphtheriaon 01-11-2021 C. diphtheriae Ab IA Qn (S) <0.10 below low threshold <0.10 [employer] 2100 DO Work Phone: Comment on above: Interpretation: Non- Protective <0.10 Protective >=0.10 For research use only. H. Influenza B Ab, IgGon H. influenzae B IgG (S) [Mass/Vol] 0.0 ug/mL [employer] 2100 DO Work Phone: Comment on above: INTERPRETIVE INFORMA TION: H. Influenzae b Ab, IgG Less than 1.0 ug/mL ...... Antibody concentration not protective. 1.0 ug/mL or greater ..... Antibodies to H. Influenzae b detected. Suggestive of protection.Responder status is determined according to the ratio of post-vaccination concentration to pre-vaccination concentration of Haemophilus influenza b antibody, IgG as follows: 1. If the post-vaccination concentration is less than 3.0 ug/mL, the patient is considered to be a non-responder. 2. If the post-vaccination concentration is greater than or equal to 3.0 ug/mL, a patient with a ratio of greater than or equal to 4 is a good responder, a ratio of 2-4 is a weak responder, and a ratio of less than 2 is considered a non-responder. This test was developed and its performance characteristics determined by [facility]. It has not been cleared or approved by the US Food and Drug Administration. This test was performed in a CLIA certified laboratory and is intended for clinical purposes.Performed By: [facility] [place] [address] [id number] Director: Lyndsey Rodrigez MD Immunoglobulin A Level, Seru [facility] 01-11-2021 IgA [Mass/Vol] 203 mg/dL 70 - 400 [facility] [employer] -[place] 2100 DO Work Phone: Comment on above: MONOCLONAL PROTEINS MAY CAUSE FALSELY LOWRESULTS IN THIS ASSAY. SERUM PROTEINELECTROPHORESIS SHOULD BE DONE THEFIRST TEST TO EVALUATE MONOCLONAL GAMMOPATHY. Immunoglobulin M Level, Seru [facility] 01-11-2021 IgM [Mass/Vol] 64 mg/dL 40 - 230 [facility] [employer] [facility] 2100 DO Work Phone: Comment on above: MONOCLONAL PROTEINS MAY CAUSE FALSELY LOWRESULTS IN THIS ASSAY. SERUM PROTEINELECTROPHORESIS SHOULD BE DONE THEFIRST TEST TO EVALUATE MONOCLONAL GAMMOPATHY. Laboratory - Microbiology an d Antimicrobial susceptibilityon 01-11-2021 S. pneumoniae 1 IgG (S) [Mass/Vol] 0.9 ug/mL below low threshold >1.3 [facility] 2100 DO Work Phone: S. pneumoniae 12 IgG (S) [Mass/Vol] 0.2 ug/mL below low threshold >1.3 [facility] 2100 DO Work Phone: S. pneumoniae 14 IgG (S) [Mass/Vol] 0.6 ug/mL below low threshold >1.3 [facility] 2100 DO Work Phone: S. pneumoniae 17 IgG (S) [Mass/Vol] 7.2 ug/mL >1.3 [facility] [facility] 2100 DO Work Phone: S. pneumoniae 19 IgG (S) [Mass/Vol] 2.2 ug/mL >1.3 [facility] 2100 DO Work Phone: S. pneumoniae 2 IgG (S) [Mass/Vol] 2.7 ug/mL >1.3 [facility] 2100 DO Work Phone: S. pneumoniae 20 IgG (S) [Mass/Vol] 20.7 ug/mL >1.3 [facility] 2099 DO Work Phone: S. pneumoniae 22 IgG (S) [Mass/Vol] 3.1 ug/mL >1.3 [facility] 2099 DO Work Phone: S. pneumoniae 23 IgG (S) [Mass/Vol] 0.9 ug/mL below low threshold >1.3 [facility] 2099 DO Work Phone: S. pneumoniae 3 IgG (S) [Mass/Vol] 5.6 ug/mL >1.3 [facility]99 DO Work Phone: S. pneumoniae 34 IgG (S) [Mass/Vol] 0.8 ug/mL below low threshold >1.3 [facility] 2099 DO Work Phone: S. pneumoniae 4 IgG (S) [Mass/Vol] 0.5 ug/mL below low threshold >1.3 [facility] 2099 DO Work Phone: S. pneumoniae 43 IgG (S) [Mass/Vol] 2.6 ug/mL >1.3 [facility] 2100 DO Work Phone: S. pneumoniae 5 IgG (S) [Mass/Vol] 2.2 ug/mL >1.3 [facility] 2100 DO Work Phone: S. pneumoniae 8 IgG (S) [Mass/Vol] 9.0 ug/mL >1.3 [facility] 2100 DO Work Phone: S. pneumoniae 9 IgG (S) [Mass/Vol] 0.4 ug/mL below low threshold >1.3 [facility] 2100 DO Work Phone: S. pneumoniae Tongan type 15B IgG (S) [Mass/Vol] 0.9 ug/mL below low threshold >1.3 [facility] 2100 DO Work Phone: S. pneumoniae Tongan type 18C IgG (S) [Mass/Vol] 2.3 ug/mL >1.3 [facility] 2100 DO Work Phone: S. pneumoniae Tongan type 19A IgG (S) [Mass/Vol] 4.7 ug/mL >1.3 [facility] 2100 DO Work Phone: S. pneumoniae Tongan type 33F IgG (S) [Mass/Vol] 0.6 ug/mL below low threshold >1.3 [facility] 2100 DO Work Phone: Comment on above: *This test was david amaya and its performance characteristics determined by [facility]. It has not been cleared or approved by the U.S. Food and Drug Administration. Performed At:[id number] [employer] [facility] [place] [address]Kizgmmviep Director: Ron Roberts Ph.D., BCLMichael (ABB)CLIA#: [id number]: S. pneumoniae Tongan type 6B IgG (S) [Mass/Vol] 1.9 ug/mL >1.3 [facility] 2100 DO Work Phone: S. pneumoniae Tongan type 7F IgG (S) [Mass/Vol] 1.8 ug/mL >1.3 [facility] 2100 DO Work Phone: S. pneumoniae Tongan type 9V IgG (S) [Mass/Vol] 0.9 ug/mL below low threshold >1.3 [facility] 2100 DO Work Phone: Tetanus Abon 01-11-2021 C. tetani IgG IA Qn (S) 0.35 {IU/mL} <0.10 [employer] 2100 DO Work Phone: Comment on above: Interpretation: Non- Protective <0.10 Protective >=0.10 Results for this test are for research purposes only by the assay's bottom cementer. The performance characteristics of this product have not been established. Results should not be used as a diagnostic procedure without confirmation of the diagnosis by another medically established diagnostic product or procedure. CT Chest High Resolutionon 0 01-02-2021 CT Chest High Resolution Normal [facility] 200 [place] Work Phone: Tobacco Screening.on 021 Fall risk assessment a) No falls within the last year [facility] [place] Work Phone: Tobacco use status CPHS b) No [facility] [facility] 200 [place] Work Phone: Respirationon 12-12-2020 Heart Rate Regular [facility] [place] 170 DO Work Phone: Respiration Normal [facility] [place] 170 DO Work Phone: Complete Blood Count + Diffe rentialon 12-10-2020 Basophils/100 WBC (Bld) 0.1 % 0.0 - 2.0 [facility] 2100 DO Work Phone: Erythrocyte distribution width (RBC) [Ratio] 16.2 % above high threshold See Below [employer] 2100 DO Work Phone: Comment on above: Reference Range: 11. 5 - 14.5 Hematocrit (Bld) [Volume fraction] 39.6 % below low threshold See Below [employer] DO Work Phone: Comment on above: Reference Range: 41. 0 - 52.0 Hemoglobin (Bld) [Mass/Vol] 11.0 g/dL below low threshold See Below [facility] 2100 DO Work Phone: Comment on above: Reference Range: 13. 5 - 17.5 Lymphocytes/100 WBC (Bld) 7.7 % See Below [employer] 2100 DO Work Phone: Comment on above: Reference Range: 13. 0 - 44.0 MCHC (RBC) [Mass/Vol] 27.8 g/dL below low threshold See Below [employer] DO Work Phone: Comment on above: Reference Range: 32. 0 - 36.0 MCV (RBC) [Entitic vol] 82 fL 80 - 100 [employer] DO Work Phone: Monocytes/100 WBC (Bld) 2.8 % 2.0 - 10.0 [employer] DO Work Phone: Neutrophils/100 WBC (Bld) 87.8 % See Below [employer] DO Work Phone: Comment on above: Reference Range: 40. 0 - 80.0 Platelets (Bld) [#/Vol] 292 10*3/uL 150 - 450 [employer] DO Work Phone: RBC (Bld) [#/Vol] 4.82 {x10E12/L} See Below [employer] DO Work Phone: Comment on above: Reference Range: 4.5 0 - 5.90 WBC (Bld) [#/Vol] 13.6 10*3/uL above high threshold 4.4 - 11.3 [employer] DO Work Phone: Complete Blood Count + Differential 0.02 {x10E9/L} See Below [employer] DO Work Phone: Comment on above: Reference Range: 0.0 0 - 0.10 Complete Blood Count + Differential 0.38 {x10E9/L} See Below [employer] DO Work Phone: Comment on above: Reference Range: 0.1 0 - 1.00 Complete Blood Count + Differential 1.04 {x10E9/L} below low threshold See Below [employer] DO Work Phone: Comment on above: Reference Range: 1.2 0 - 4.80 Complete Blood Count + Differential 11.90 {x10E9/L} above high threshold See Below [employer] DO Work Phone: Comment on above: Reference Range: 1.2 0 - 7.70 Complete Blood Count + Differential 1.6 % above high threshold 0.0 - 0.9 [employer] DO Work Phone: Comment on above: Immature Granulocyte Count (IG) includes promyelocytes, myelocytes and metamyelocytes but does not include bands. Percent differential counts (%) should be interpreted in the context of the absolute cell counts (cells/L). Complete Blood Count + Differential 0.2 {/100_WBC} 0.0 - 0.0 [employer] DO Work Phone: Laboratory - Cell markerson 12-10-2020 CD19 cells (Bld) [#/Vol] 0.062 {x10E9/L} below low threshold See Below [employer] DO Work Phone: Comment on above: Reference Range: 0.0 70 - 0.910 CD3 cells (Bld) [#/Vol] 0.915 {x10E9/L} See Below [employer] DO Work Phone: Comment on above: Reference Range: 0.7 10 - 4.180 CD3+CD4+ (T4 helper) cells (Bld) [#/Vol] 0.499 {x10E9/L} See Below [employer] [facility] -[facility] 2100 DO Work Phone: Comment on above: Reference Range: 0.3 50 - 2.740 CD3+CD4+ (T4 helper) cells/CD3+CD8+ (T8 suppressor cells) cells (Bld) [# ratio] 1.41 % See Below [facility] [employer] [facility] 2099 DO Work Phone: Comment on above: Reference Range: 1.0 0 - 3.50 CD3+SO3-MZ0-UL15+ cells/100 cells (Bld) 2 % 0 - 6 [facility] [employer] [facility] 2099 DO Work Phone: CD3+CD8+ (T8 suppressor cells) cells (Bld) [#/Vol] 0.354 {x10E9/L} See Below [facility] -[place] 2099 DO Work Phone: Comment on above: Reference Range: 0.0 80 - 1.490 CD3-CD16+CD56+ (Natural killer) cells (Bld) [#/Vol] 0.062 {x10E9L} See Below [facility] -[place] 2099 DO Work Phone: Comment on above: Reference Range: 0.0 00 - 0.860 CD3-CD16+CD56+ (Natural killer) cells/100 cells (Bld) 6 % 0 - 18 [facility] [employer] [facility] 2099 DO Work Phone: CD45 (Lymphs) cells/100 cells (Unsp spec) 100 % [facility] 2099 DO Work Phone: Laboratory - Chemistry and C hemistry - challengeon 12-10-2020 Iron [Mass/Vol] 22 ug/dL below low threshold 35 - 150 [facility] 2099 DO Work Phone: Iron binding capacity [Mass/Vol] 393 ug/dL 240 - 445 [facility] 2099 DO Work Phone: No Panel Informationon 12-10 SEE BELOW [facility] 2099 DO Work Phone: Comment on above: This test is a multi color, whole blood lysis assay. It was developed and its performance characteristics determined by the Department of Pathology, [facility], and has not been cleared or approved by the U.S. Food and Drug Administration. The laboratory is regulated under CLIA as qualified to perform high complexity testing. This test is used for clinical purposes. It should not be regarded as investigational or for research. Flow cytometric anal ysis of the patient's blood cells within the characteristic lymphocytic kenney revealed the presence of CD4+ and CD8+ T lymphocytes, B lymphocytes, and natural killercells.There is B lymphopenia.There is no increase in double negative(CD4-CD8-)T lymphocytes. 6 % below low threshold 25 - 45 [facility] 2100 DO Work Phone: 34 % above high threshold 7 - 31 [facility] 2100 DO Work Phone: 48 % 29 - 57 [facility] 2100 DO Work Phone: 88 % above high threshold 59 - 87 [facility] 2100 DO Work Phone: BLOOD [facility] 2100 DO Work Phone: Comment on above: SOURCE: Path Rev:2-8 Surface Markervernon roy 12-10-2020 Path Rev:2-8 Surface Marker NENITA [facility] 2100 DO Work Phone: Comment on above: SOURCE: By her/his s ignature above, the Pathologist listed as making the final interpretation certifies that she/he has personally reviewed this case. SARS-CoV-2 NUCLEOCAPSID IGG ANTIBODYon 12-10-2020 SARS-CoV-2 (COVID-19) IgG IA Ql Positive Abnormal Negative [facility] 2100 DO Work Phone: Comment on above: SOURCE: .SARS-COV-2 nucleocapsid IgG antibodies detected. Result suggests recent or past infection of SARS-CoV-2 (COVID-19) but does not necessarily indicate protective immunity. Results from antibody testing should not be used as the sole basis to diagnose or exclude SARS-CoV-2 infection. False-positive results may be due to past or present infection with erg-LEEQ-LmZ-2 coronavirus strains, such as coronavirus HKU1, NL63, OC43, or 229E. .Please note: This test can NOT be used for evaluating vaccine response. It does not detect antibodies against the vaccine antigen spike proteins..This test is for in vitro diagnostic use under the FDA Emergency Use Authorization (EUA) for US laboratories certified under CLIA to perform moderate or high complexity tests. This test has not been FDA cleared or approved. This test should not be used for screening of donated blood. CT ANGIO CHEST FOR PEon 08-0 CT ANGIO CHEST FOR PE Patient Name: VELIA BAGLEY STUDY: CT ANGIO CHEST FOR PE; 12/06/2020 2:29 pm INDICATION: SOB, cough. COVID positive in July of 2020. Cough, shortness of breath, asthma COMPARISON: 08/04/2017 ACCESSION NUMBER(S): [id number] ORDERING CLINICIAN: CAROL ANN ELLIOTT TECHNIQUE: Helical data acquisition of the chest was obtained 80 mL Omnipaque 350. Images were reformatted in axial, coronal, and sagittal planes. 3D MIP images were generated and reviewed. FINDINGS: LUNGS and AIRWAYS: There are extensive bilateral upper lobe ground-glass opacity. The pattern suggests recurrent COVID pneumonia. There is a small freely layering left pleural effusion. There is no pulmonary nodule. MANDI AND MEDIASTINUM: There is no hilar or mediastinal adenopathy. HEART and VESSELS: There is no thoracic aortic aneurysm or dissection. There is good opacification of the pulmonary arterial system with no embolism. No coronary artery calcifications are seen. The study is not optimized for evaluation of coronary arteries. The cardiac chambers are not enlarged. No evidence of pericardial effusion. UPPER ABDOMEN: The visualized subdiaphragmatic structures demonstrate no remarkable findings. CHEST WALL and OSSEOUS STRUCTURES: There are no suspicious osseous lesions. Multilevel degenerative changes are present IMPRESSION: 1. No pulmonary embolism or aortic dissection. 2. Small left pleural effusion. 3. Extensive bilateral upper lobe ground-glass opacities suggestive of per current COVID pneumonia. Electronically signed by: JUDITH ROMERO MD [facility] Complete Blood Count + Diffe phyllismickey 12-06-2020 Erythrocyte distribution width (RBC) [Ratio] 16.7 % above high threshold See Below [facility] 130 [place] Work Phone: [phone] Comment on above: Reference Range: 11. 5 - 14.5 Hematocrit (Bld) [Volume fraction] 36.5 % below low threshold See Below [facility] 130 [place] Work Phone: [phone] Comment on above: Reference Range: 41. 0 - 52.0 Hemoglobin (Bld) [Mass/Vol] 10.4 g/dL below low threshold See Below [facility] [address] [place] Work Phone: Comment on above: Reference Range: 13. 5 - 17.5 MCHC (RBC) [Mass/Vol] 28.5 g/dL below low threshold See Below COVID [facility] [address] [place] Work Phone: [phone] Comment on above: Reference Range: 32. 0 - 36.0 MCV (RBC) [Entitic vol] 81 fL 80 - 100 [facility] 130 [place] Work Phone: Platelets (Bld) [#/Vol] 246 10*3/uL 150 - 450 [facility] [address] Work Phone: [phone] RBC (Bld) [#/Vol] 4.53 {x10E12/L} See Below COVID [facility] 130 [place] Work Phone: Comment on above: Reference Range: 4.5 0 - 5.90 WBC (Bld) [#/Vol] 10.8 10*3/uL 4.4 - 11.3 CO VID [facility] 130 [place] Work Phone: Complete Blood Count + Differential SEE MANUAL DIFF [facility] 130 [place] Work Phone: Complete Blood Count + Differential 11.9 % above high threshold 0.0 - 0.9 COVID [facility] [address] [place] Work Phone: Comment on above: Immature Granulocyte Count (IG) includes promyelocytes, myelocytes and metamyelocytes but does not include bands. Percent differential counts (%) should be interpreted in the context of the absolute cell counts (cells/L). Laboratory - Chemistry and C hemistry - challengeon 12-06-2020 Anion gap [Moles/Vol] 10 mmol/L 10 - 20 [facility] 130 [place] Work Phone: Calcium [Mass/Vol] 8.8 mg/dL 8.6 - 10.3 [facility] 130 [place] Work Phone: Chloride [Moles/Vol] 108 mmol/L above high threshold 98 - 107 [place] [address] [place] Work Phone: CO2 [Moles/Vol] 25 mmol/L 21 - [address] Work Phone: Creatinine [Mass/Vol] 1.14 mg/dL See Below [place] [address] [place] Work Phone: Comment on above: Reference Range: 0.5 0 - 1.30 Glucose [Mass/Vol] 107 mg/dL above high threshold 74 - 99 [place] [address] [place] Work Phone: IgA [Mass/Vol] 197 mg/dL 70 - [address] Work Phone: Comment on above: MONOCLONAL PROTEINS MAY CAUSE FALSELY LOWRESULTS IN THIS ASSAY. SERUM PROTEINELECTROPHORESIS SHOULD BE DONE THEFIRST TEST TO EVALUATE MONOCLONAL GAMMOPATHY. IgG [Mass/Vol] 552 mg/dL below low threshold 700 - 1600 [facility] 130 [place] Work Phone: Comment on above: MONOCLONAL PROTEINS MAY CAUSE FALSELY LOWRESULTS IN THIS ASSAY. SERUM PROTEINELECTROPHORESIS SHOULD BE DONE THEFIRST TEST TO EVALUATE MONOCLONAL GAMMOPATHY. IgM [Mass/Vol] 46 mg/dL 40 - [address] Work Phone: Comment on above: MONOCLONAL PROTEINS MAY CAUSE FALSELY LOWRESULTS IN THIS ASSAY. SERUM PROTEINELECTROPHORESIS SHOULD BE DONE THEFIRST TEST TO EVALUATE MONOCLONAL GAMMOPATHY. Potassium [Moles/Vol] 3.9 mmol/L 3.5 - 5.3 [facility] 130 [place] Work Phone: [phone] Sodium [Moles/Vol] 139 mmol/L 136 - 145 [facility] 130 [place] Work Phone: [phone] Urea nitrogen [Mass/Vol] 31 mg/dL above high threshold 6 - 23 [facility] 130 [place] Work Phone: [phone] Laboratory - Hematology and Cell countson 12-06-2020 Basophils/100 WBC (Bld) 0.0 % 0.0 - 2.0 [facility] 130 [place] Work Phone: [phone] Lymphocytes/100 WBC (Bld) 17.0 % See Below [facility] 130 [place] Work Phone: [phone] Comment on above: Reference Range: 13. 0 - 44.0 Monocytes/100 WBC (Bld) 3.0 % 2.0 - 10.0 [facility] 130 [place] Work Phone: [phone] MOCA (Bharat Cognitive Ass essment)on 12-06-2020 MOCA (Bharat Cognitive Assessment) 2 1 [facility] 130 [place] Work Phone: [phone] MOCA ([place] Cognitive Assessment) 0 1 [facility] 130 [place] Work Phone: [phone] MOCA ([place] Cognitive Assessment) 3 1 [facility] 130 [place] Work Phone: [phone] MOCA ([place] Cognitive Assessment) 4 1 [facility] 130 [place] Work Phone: [phone] MOCA (Bharat Cognitive Assessment) 22 1 [facility] 130 [place] Work Phone: [phone] MOCA (Bharat Cognitive Assessment) Yes [facility] 130 [place] Work Phone: [phone] MOCA ([place] Cognitive Assessment) 5 1 [facility] 130 [place] Work Phone: No Panel Informationon 12-06 Few [facility] 130 [place] Work Phone: Mild [place] [address] [place] Work Phone: See Below [address] Work Phone: 8.32 {x10E9/L} above high threshold See Below [address] Work Phone: Comment on above: Reference Range: 1.2 0 - 7.70 Reference Range: 1.2 0 - 7.00 0.32 {x10E9/L} See Below [address] Work Phone: Comment on above: Reference Range: 0.0 0 - 0.00 Reference Range: 0.1 0 - 1.00 0.00 {x10E9/L} See Below [address] Work Phone: Comment on above: Reference Range: 0.0 0 - 0.10 Reference Range: 0.0 0 - 0.70 1.84 {x10E9/L} See Below [address] Work Phone: Comment on above: Reference Range: 1.2 0 - 4.80 3.0 % 0.0 - 0.[address] Work Phone: 0.0 % 0.0 - 6.[address] Work Phone: 77.0 % See Below [place] [address] [place] Work Phone: Comment on above: Reference Range: 40. 0 - 80.0 Percent differential counts (%) should be interpreted in the context of the absolute cell counts (cells/L). >60 >60 [place] [address] [place] Work Phone: Comment on above: CALCULATIONS OF ANTHONY MATED GFR ARE PERFORMED USING THE MDRD STUDY EQUATION FOR THE IDMS-TRACEABLE CREATININE METHODS. CLIN CHEM 2007;53:766-49 607 {ng/mL_FEU} Abnormal < or = 500 [place] [address] [employer] Work Phone: Comment on above: The VTE Exclusion D- Dimer assay is reported in ng/mL Fibrinogen Equivalent Units (FEU). Per manufacturers instructions for use, a value of less than 500 ng/mL (FEU) may help to exclude DVT or PE in outpatients when the assay is used with a clinical pretest probability assessment. (AEMR must utilize and document eCalc Wells Score Deep Vein Thrombosis Risk for DVT exclusion only; Emergency Department should utilize Guidelines for Emergency Department Use of the VTE Exclusion D-Dimer and Clinical Pretest probability assessment model for DVT or PE exclusion.) Radiologyon 12-06-2020 XR Chest 2 Views Normal [address] Work Phone: TH CT Angio Chest For PEon 0 12-06-[address] Angio Chest For PE Normal [address] Work Phone: Tobacco Screening.on 021 Fall risk assessment b) One or more fall s in the last year [place] [address] [employer] Work Phone: Tobacco use status CPHS b) No [place] [address] [employer] Work Phone: Cytokine Panel, Serumon 11-02 Interferon gamma [Mass/Vol] <4.2 <=4.2 [facility] 2100 DO Work Phone: Interleukin 1 beta [Mass/Vol] <6.5 <=6.7 [facility] 2100 DO Work Phone: Interleukin 10 [Mass/Vol] 6.7 pg/mL above high threshold <=2.8 [facility] 2100 DO Work Phone: Interleukin 12 [Mass/Vol] <1.9 <=1.9 [facility] 2100 DO Work Phone: Interleukin 13 [Mass/Vol] <1.7 <=2.3 [facility] 2100 DO Work Phone: Interleukin 17A [Mass/Vol] <1.4 <=1.4 [facility] 2100 DO Work Phone: Interleukin 2 [Mass/Vol] <2.1 <=2.1 [facility] 2100 DO Work Phone: Interleukin 2 Receptor Soluble [Mass/Vol] 547.0 pg/mL See Below [facility] 2100 DO Work Phone: Comment on above: Reference Range: 175 .3-858.2 Interleukin 4 [Mass/Vol] <2.2 <=2.2 [facility] 2100 DO Work Phone: Interleukin 5 [Mass/Vol] <2.1 <=2.1 [facility] 2100 DO Work Phone: Interleukin 6 [Mass/Vol] <2.0 <=2.0 [facility] 2100 DO Work Phone: Interleukin 8 [Mass/Vol] <3.0 <=3.0 [facility] 2100 DO Work Phone: Tumor necrosis factor.alpha [Mass/Vol] <1.7 <=7.2 [facility] 2100 DO Work Phone: Comment on above: INTERPRETIVE INFORMA TION: CytokinesResults are used to understand the pathophysiology of immune, infectious, or inflammatory disorders, or may be used for research purposes.This test was developed and its performance characteristics determined by [facility]. It has not been cleared or approved by the US Food and Drug Administration. This test was performed in a CLIA certified laboratory and is intended for clinical purposes.Performed By: [facility] [place] [id number] Director: Lyndsey Rodrigez MD Immunoglobulin G Level, Seru [facility] 11-26-2020 IgG [Mass/Vol] 477 mg/dL below low threshold 700 - 1600 [facility] 2100 DO Work Phone: Comment on above: MONOCLONAL PROTEINS MAY CAUSE FALSELY LOWRESULTS IN THIS ASSAY. SERUM PROTEINELECTROPHORESIS SHOULD BE DONE THEFIRST TEST TO EVALUATE MONOCLONAL GAMMOPATHY. Laboratory - Allergyon 11-26 [place] serum Ab Immune diff Ql (S) Not detected See Below [facility] [employer] DO Work Phone: Comment on above: Reference Range: Non e DetectedPerformed By: [facility] [id number] [place] [address] Total IgE RAST Qn (S) <2.0 See Below [facility] [employer] [place] 2100 DO Work Phone: Comment on above: Reference Range: 0.0 - 214.0 Note: Omalizumab (Xolair, [employer]; humanized IgG1 antihuman IgE Fc) treatment does not significantly interfere with the accuracy of total IgE on the ImmunoCAP (KonTEM) platform. J Allergy Clin Immunol 2006;117:759-66). Allergens, parasitic diseases, smoking, and alcohol consumption have been reported to increase levels of total IgE in serum. Laboratory - Microbiology an d Antimicrobial susceptibilityon 11-26-2020 A. fumigatus 1 Ab Immune diff Ql (S) Not detected See Below [facility] [employer]ille [employer] DO Work Phone: Comment on above: Reference Range: Non e DetectedPerformed By: [facility] [id number] [place] [address] A. fumigatus 6 Ab Immune diff Ql (S) Not detected See Below [facility] Work Phone: Comment on above: Reference Range: Non e DetectedPerformed By: [facility] [id number] [place] [address] A. pullulans Ab Immune diff Ql (S) Not detected See Below [employer] DO Work Phone: Comment on above: Reference Range: Non e DetectedPerformed By: [facility] [id number] [place] [address] S. rectivirgula Ab Immune diff Ql (S) Not detected See Below [employer] DO Work Phone: Comment on above: Reference Range: Non e DetectedPerformed By: [facility] [id number] [place] [address] T. vulgaris Ab Immune diff Ql (S) Not detected See Below [facility] 2100 DO Work Phone: Comment on above: Reference Range: Non e DetectedTesting includes antibodies directed at Aureobasidium pullulans, Aspergillus fumigatus #1, Aspergillus fumigatus #6, Micropolyspora faeni, [place] Serum and Thermoactinomyces vulgaris #1.Performed By: [facility] [place] [address] Heart Rateon 11-22-2020 Heart Rate Regular [facility]- [place] 170 DO Work Phone: Heart Rate Normal [facility] [place] 170 DO Work Phone: Heart Rateon 11-07-2020 Heart Rate Regular [facility]- [place] 170 DO Work Phone: Heart Rate Normal [facility]- [place] 170 DO Work Phone: Radiologyon 10-30-2020 XR Chest 2 Views Normal [facility] -[place] 2100 DO Work Phone: XR Chest 2 Views Please click on the link to view the study images Normal [facility] 2100 DO Work Phone: Respirationon 10-03-2020 Heart Rate Regular [facility]- [place] 170 DO Work Phone: Respiration Normal [facility]- [place] 170 DO Work Phone: Respirationon 09-19-2020 Heart Rate Regular [facility] -[place] 2100 DO Work Phone: Respiration Normal [facility] 2100 DO Work Phone: CBC Auto DifferentialOrdered By: Mathew Rios on 09-08-2020 Absolute Baso # 0.0 10*3/uL 0.0 - 0.2 10*3/uL [facility] Work Phone: Absolute Neut # 7.0 10*3/uL 1.8 - 7.0 10*3/uL [facility] Work Phone: Basophils/100 WBC (Bld) 0.1 % 0.0 - 2.0 % [facility] Work Phone: Eosinophils (Bld) [#/Vol] 0.0 10*3/uL 0.0 - 0.5 10*3/uL [facility] Work Phone: Eosinophils/100 WBC (Bld) 0.0 % Low 1.0 - 6.0 % [facility] Work Phone: Granulocytes/100 WBC (Bld) 85.8 % High 40.0 - 80.0 % [facility] Work Phone: Hematocrit (Bld) [Volume fraction] 35.1 % Low 40.0 - 52.0 % [facility] Work Phone: Hemoglobin.gastrointe stinal spec 1 Ql (Stl) 11.2 g/dL Low 13.0 - 18.0 g/dL [facility] Work Phone: Interpretation and review of laboratory results Abnormal [facility] Work Phone: Lymphocytes (Bld) [#/Vol] 0.9 10*3/uL Low 1.0 - 4.3 10*3/uL [facility] Work Phone: Lymphocytes/100 WBC (Bld) 11.0 % Low 20.0 - 40.0 % [facility] Work Phone: MCH (RBC) [Entitic mass] 26.7 pg 26.0 - 34.0 pg [facility] Work Phone: MCHC (RBC) [Mass/Vol] 31.8 % Low 32.0 - 36.0 % [facility] Work Phone: MCV (RBC) [Entitic vol] 84.0 fL 80.0 - 98.0 fL [facility] Work Phone: Monocytes (Bld) [#/Vol] 0.3 10*3/uL 0.0 - 0.8 10*3/uL [facility] Work Phone: Monocytes/100 WBC (Bld) 3.1 % 2.0 - 10.0 % [facility] Work Phone: Platelet distribution width (Bld) [Ratio] 19.2 % High 11.5 - 14.5 % [facility] Work Phone: Platelet mean volume (Bld) [Entitic vol] 7.2 fL Low 7.4 - 10.4 fL [facility] Work Phone: Platelets (Bld) [#/Vol] 275 10*3/uL 140 - 440 10*3/uL [facility] Work Phone: RBC (Bld) [#/Vol] 4.18 10*6/uL Low 4.40 - 5.9 0 10*6/uL [facility] Work Phone: WBC (Bld) [#/Vol] 8.2 10*3/uL 3.6 - 10.7 10*3/uL [facility] Work Phone: Test Performed by [facility], [address] [place] [id number] [employer] Work Phone: COVID and Resp PCR Panelon 0 09-08-2020 SARS-CoV-2 (COVID-19) RNA EMMY+probe Ql (Unsp spec) COVID and Resp PCR Panel --> Status: F NEGATIVE: No targets were detected by the [employer] Upper Respiratory Pathogens PCR Panel. _ Expected Result: Not Detected The [employer] Upper Respiratory Pathogens PCR Panel can detect the following targets: SARS-CoV-2, Adenovirus, Coronavirus 229E, Coronavirus HKU1, Coronavirus NL63, Coronavirus OC43, Human Metapneumovirus, Human Rhinovirus/Enterovirus, Influenza A, Influenza B, Parainfluenza Virus 1, Parainfluenza Virus 2, Parainfluenza Virus 3, Parainfluenza Virus 4, Respiratory Syncytial Virus, Bordetella pertussis, Bordetella parapertussis, Chlamydia pneumoniae, Mycoplasma pneumoniae. Negative results do not preclude SARS-CoV-2 infection and should not be used as the sole basis for treatment or other patient management decisions. This assay was developed by [employer] and distributed under an Emergency Use Authorization (EUA) granted by the FDA for the qualitative detection of SARS-CoV-2 nucleic acid. Provider and patient fact sheets can be found at https://www.fda.gov/medi a/128898/download and https://www.fda.gov/medi a/331436/download. Respiratory Pathogens PCR Panel. _ Expected Result: Not Detected The [employer] Upper Respiratory Pathogens PCR Panel can detect the following targets: SARS-CoV-2, Adenovirus, Coronavirus 229E, Coronavirus HKU1, Coronavirus NL63, Coronavirus OC43, Human Metapneumovirus, Human Rhinovirus/Enterovirus, Influenza A, Influenza B, Parainfluenza Virus 1, Parainfluenza Virus 2, Parainfluenza Virus 3, Parainfluenza Virus 4, Respiratory Syncytial Virus, Bordetella pertussis, Bordetella parapertussis, Chlamydia pneumoniae, Mycoplasma pneumoniae. Negative results do not preclude SARS-CoV-2 infection and should not be used as the sole basis for treatment or other patient management decisions. This assay was developed by [employer] and distributed under an Emergency Use Authorization (EUA) granted by the FDA for the qualitative detection of SARS-CoV-2 nucleic acid. Provider and patient fact sheets can be found at https://www.fda.gov/medi a/487154/download and https://www.fda.gov/medi a/025429/download. Normal [facility] Comment on above: Performed By: #### B [facility] ####[facility] [place] [address] CTA Chest W WO (PE study)Ord ered By: Mathew Rios on 09-08-2020 Patient Name: VELIA SALMERON Computed Tomography ACCESSION EXAM DATE/TIME PROCEDURE ORDERING PROVIDER [id number] 09/08/2020 16:07 EDT CTA Chest w/ + w/o PUNEET RIOS, MATHEW Rowan Contrast CPT code 13727 Q9967 Reason For Exam (CTA Chest w/ + w/o Contrast) SOB, Covid in july, recent pna, SOB Report Examination: CTA chest Clinical Indication: SOB Comparison: Chest CT 01/17/2017 Findings: Serial axial [address] images were obtained through the chest after a 75 mL Isovue-370 bolus tracked intravenous contrast bolus secondary to the chest CTA P.E. protocol. Three-dimensional images were reconstructed concurrently on a dedicated [employer] workstation by the interpreting radiologist. Exam quality: Good contrast enhancement of the vasculature. Pulmonary Arteries: No filling defects identified throughout the main pulmonary arteries along with the lobar, segmental and visualized subsegmental branches. Aorta: No aortic dissection identified. Lungs: Throughout the entire right and left lungs, there are uniformly distributed areas of interstitial thickening and scarring, which may be the sequela of the recent prior Covid pneumonia history provided. The central airways are patent. No dominant mass lesion. Pleural fluid: None. Heart/Great vessels: Unremarkable. Mediastinum/Mandi: No mediastinal or hilar mass. Soft tissues chest wall/Neck base: No abnormality identified. Upper abdomen: No acute process in the upper abdomen. Osseous structures: No suspicious osseous lesions. Multilevel spondylosis. Computed Tomography Report Impression: 1. No evidence of pulmonary embolus. 2. Throughout the entire right and left lungs, there are uniformly distributed areas of interstitial thickening and scarring, which may be the sequela of the recent prior Covid pneumonia history provided. Report Dictated on --- Final --- Dictated: 09/08/2020 4:38 pm Dictating Physician: MD KWON JASON Signed Date and Time: 09/08/2020 4:45 pm Signed by: MD KWON JASON Transcribed Date and Time: 09/08/2020 4:38 [facility] Work Phone: [place], [facility] - 09/08/2020 4:46 PM EDT Patient Name: VELIA BAGLEY Computed Tomography ACCESSION EXAM DATE/TIME PROCEDURE ORDERING PROVIDER [id number] 09/08/2020 16:07 EDT CTA Chest w/ + w/o PUNEET RIOS JOHN M Contrast CPT code 99008 Q9967 Reason For Exam (CTA Chest w/ + w/o Contrast) SOB, Covid in july, pna, SOB Report Examination: CTA chest Clinical Indication: SOB Comparison: Chest CT 01/17/2017 Findings: Serial axial [address] images were obtained through the chest after a 75 mL Isovue-370 bolus tracked intravenous contrast bolus secondary to the chest CTA P.E. protocol. Three-dimensional images were reconstructed concurrently on a dedicated [employer] workstation by the interpreting radiologist. Exam quality: Good contrast enhancement of the vasculature. Pulmonary Arteries: No filling defects identified throughout the main pulmonary arteries along with the lobar, segmental and visualized subsegmental branches. Aorta: No aortic dissection identified. Lungs: Throughout the entire right and left lungs, there are uniformly distributed areas of interstitial thickening and scarring, which may be the sequela of the recent prior Covid pneumonia history provided. The central airways are patent. No dominant mass lesion. Pleural fluid: None. Heart/Great vessels: Unremarkable. Mediastinum/Mandi: No mediastinal or hilar mass. Soft tissues chest wall/Neck base: No abnormality identified. Upper abdomen: No acute process in the upper abdomen. Osseous structures: No suspicious osseous lesions. Multilevel spondylosis. Computed Tomography Report Impression: 1. No evidence of pulmonary embolus. 2. Throughout the entire right and left lungs, there are uniformly distributed areas of interstitial thickening and scarring, which may be the sequela of the recent prior Covid pneumonia history provided. Report Dictated on --- Final --- Dictated: 09/08/2020 4:38 pm Dictating Physician: MD KWON JASON Signed Date and Time: 09/08/2020 4:45 pm Signed by: MD KWON JASON Transcribed Date and Time: 09/08/2020 4:38 [facility] Work Phone: CTA Chest w/ + w/o Contrasto n 09-08-2020 CTA Chest w/ + w/o Contrast [id number] Tomography ACCESSION EXAM DATE/TIME PROCEDURE ORDERING PROVIDER [id number] 09/08/2020 16:07 EDT CTA Chest w/ + w/o PUNEET RIOS JOHN M Contrast CPT code 87906 Q9967 Reason For Exam (CTA Chest w/ + w/o Contrast) SOB, Covid in march, recent pna, SOB Report Examination: CTA chest Clinical Indication: SOB Comparison: Chest CT 01/17/2017 Findings: Serial axial [address] images were obtained through the chest after a 75 mL Isovue-370 bolus tracked intravenous contrast bolus secondary to the chest CTA P.E. protocol. Three-dimensional images were reconstructed concurrently on a dedicated [employer] workstation by the interpreting radiologist. Exam quality: Good contrast enhancement of the vasculature. Pulmonary Arteries: No filling defects identified throughout the main pulmonary arteries along with the lobar, segmental and visualized subsegmental branches. Aorta: No aortic dissection identified. Lungs: Throughout the entire right and left lungs, there are uniformly distributed areas of interstitial thickening and scarring, which may be the sequela of the recent prior Covid pneumonia history provided. The central airways are patent. No dominant mass lesion. Pleural fluid: None. Heart/Great vessels: Unremarkable. Mediastinum/Mandi: No mediastinal or hilar mass. Soft tissues chest wall/Neck base: No abnormality identified. Upper abdomen: No acute process in the upper abdomen. Osseous structures: No suspicious osseous lesions. Multilevel spondylosis. Computed Tomography Report Impression: 1. No evidence of pulmonary embolus. 2. Throughout the entire right and left lungs, there are uniformly distributed areas of interstitial thickening and scarring, which may be the sequela of the recent prior Covid pneumonia history provided. Report Dictated on Final Dictated: 09/08/2020 4:38 pm Dictating Physician: MD KWON JASON Signed Date and Time: 09/08/2020 4:45 pm Signed by: MD KWON JASON Transcribed Date and Time: 09/08/2020 4:38 Normal [facility] Comp Metabolic Panelon 09-08 ALT [Catalytic activity/Vol] 15 U/L Normal 0-49 [facility] Comment on above: Result Comment: The ALT test is performed by an updated assay method. Please note that the reference intervals have been changed and are now sex specific. Performed By: #### C MP3, TROPN, HEMDF ####[facility] [employer] [place] [address] Calcium [Mass/Vol] 9.1 mg/dL Normal 8.4-10.4 [facility] Comment on above: Performed By: #### C MP3, TROPN, HEMDF ####[facility] [place], [place] ALP [Catalytic activity/Vol] 89 U/L Normal 38-126 [facility] Comment on above: Performed By: #### C MP3, TROPN, HEMDF ####[place] [address] [place], [place] Anion gap [Moles/Vol] 8 mmol/L Normal 3-13 [facility] Comment on above: Performed By: #### C MP3, TROPN, HEMDF ####[place] [address] [place], [place] AST [Catalytic activity/Vol] 19 U/L Normal 15-46 [facility] Comment on above: Performed By: #### C MP3, TROPN, HEMDF ####[place] [address] [place], [place] Bilirubin [Mass/Vol] 0.5 mg/dL Normal 0.2-1.3 [facility] Comment on above: Performed By: #### C MP3, TROPN, HEMDF ####[place] [address] [place], [place] CO2 [Moles/Vol] 19 mmol/L Low 22-30 [facility] Comment on above: Performed By: #### C MP3, TROPN, HEMDF ####[place] [address] [place], [place] Creatinine [Mass/Vol] 0.94 mg/dL Normal 0.52-1.25 [facility] Comment on above: Performed By: #### C MP3, TROPN, HEMDF ####[place] [address] [place], [place] GFR/1.73 sq M.predicted among blacks MDRD (S/P/Bld) [Vol rate/Area] mL/min/{1.73_m2} Normal >60 [facility] Comment on above: Performed By: #### C MP3, TROPN, HEMDF ####[place] [address] [place] [address] GFR/1.73 sq M.predicted among non-blacks MDRD (S/P/Bld) [Vol rate/Area] 88.0 mL/min/{1.73_m2} Normal >60 [facility] Comment on above: Result Comment: KDIG O guidelines provide the following GFR categories: Stage GFR(ml/min/1.73 m2) Terms G1 >=90 Normal or high G2 60-89 Mildly decreased* G3a 45-59 Mildly to moderately decreased G3b 30-44 Moderately to severely decreased G4 15-29 Severely decreased G5 <15 Kidney failure *Relative to young adult level. In the absence of evidence of kidney damage, neither GFR category G1 nor G2 fulfill the criteria for CKD. The CKD-EPI equation is validated in individuals 18 years of age and older. Currently the best equation for estimating glomerular filtration rate (GFR) from serum creatinine in children is the Bedside Peng equation. It is less accurate in patients with extremes of muscle mass, restriction of dietary protein, ingestion of creatine, extra-renal metabolism of creatinine, or treatment with medications that affect renal tubular creatinine secretion. Performed By: #### C MP3, TROPN, HEMDF ####[facility] [place] [address] Glucose [Mass/Vol] 101 mg/dL High 70-100 [facility] Comment on above: Performed By: #### C MP3, TROPN, HEMDF ####[place] [address] [place] [address] Protein [Mass/Vol] 6.3 g/dL Normal 6.3-8.2 [facility] Comment on above: Performed By: #### C MP3, TROPN, HEMDF ####[facility] [place] [address] Urea nitrogen [Mass/Vol] 18 mg/dL Normal 7-20 [facility] Comment on above: Performed By: #### C MP3, TROPN, HEMDF ####[facility] [place] [address] Potassium [Moles/Vol] 4.3 mmol/L Normal 3.5-5.1 [facility] Comment on above: Performed By: #### C MP3, TROPN, HEMDF ####[facility] [employer] [id number] [place] [address] Sodium [Moles/Vol] 138 mmol/L Normal 135-145 [facility] Comment on above: Performed By: #### C MP3, TROPN, HEMDF ####[facility] [employer] [id number] [place] [address] Albumin [Mass/Vol] 3.7 g/dL Normal 3.5-5.0 [facility] Comment on above: Performed By: #### C MP3, TROPN, HEMDF ####[facility] [employer] [id number] [place] [address] Chloride [Moles/Vol] 111 mmol/L High 98-107 [facility] Comment on above: Performed By: #### C MP3, TROPN, HEMDF ####[place] [address] [place] [address] Comprehensive Metabolic Pane lOrdered By: Mathew Rios on 09-08-2020 Albumin [Mass/Vol] 3.7 g/dL 3.5 - 5.0 g/dL [facility] Work Phone: ALP (Bld) [Catalytic activity/Vol] 89 U/L 38 - 126 U/L [facility] Work Phone: ALT [Catalytic activity/Vol] 15 U/L 0 - 49 U/L [facility] Work Phone: Comment on above: The ALT test is perf ormed by an updated assay method. Please note that the reference intervals have been changed and are now sex specific. Anion gap [Moles/Vol] 8 mmol/L 3 - 13 mmol/L [facility] Work Phone: AST [Catalytic activity/Vol] 19 U/L 15 - 46 U/L [facility] Work Phone: Bilirubin [Mass/Vol] 0.5 mg/dL 0.2 - 1 .3 mg/dL [facility] Work Phone: Calcium [Mass/Vol] 9.1 mg/dL 8.4 - 10. 4 mg/dL [facility] Work Phone: Chloride [Moles/Vol] 111 mmol/L High 98 - 10 7 mmol/L [facility] Work Phone: CO2 [Moles/Vol] 19 mmol/L Low 22 - 30 mmol/L [facility] Work Phone: Creatinine [Mass/Vol] 0.94 mg/dL 0.52 - 1.25 mg/dL [facility] Work Phone: EGFR IF NonAfrican Afghan 88.0 mL/min >60 [facility] Work Phone: Comment on above: KDIGO guidelines pro vide the following GFR categories: Stage GFR(ml/min/1.73 m2) Terms G1 >=90 Normal or high G2 60-89 Mildly decreased* G3a 45-59 Mildly to moderately decreased G3b 30-44 Moderately to severely decreased G4 15-29 Severely decreased G5 <15 Kidney failure *Relative to young adult level. In the absence of evidence of kidney damage, neither GFR category G1 nor G2 fulfill the criteria for CKD. The CKD-EPI equation is validated in individuals 18 years of age and older. Currently the best equation for estimating glomerular filtration rate (GFR) from serum creatinine in children is the Bedside Peng equation. It is less accurate in patients with extremes of muscle mass, restriction of dietary protein, ingestion of creatine, extra-renal metabolism of creatinine, or treatment with medications that affect renal tubular creatinine secretion. Free PSA/Total PSA [Mass fraction] 6.3 g/dL 6.3 - 8.2 g/dL [facility] Work Phone: GFR/1.73 sq M.predicted among blacks MDRD (S/P/Bld) [Vol rate/Area] mL/min/{1.73_m2} >60 mL/min [facility] Work Phone: Glucose [Mass/Vol] 101 mg/dL High 70 - 100 mg/dL [facility] Work Phone: Interpretation and review of laboratory results Abnormal [facility] Work Phone: Potassium [Moles/Vol] 4.3 mmol/L 3.5 - 5.1 mmol/L [facility] Work Phone: Sodium [Moles/Vol] 138 mmol/L 135 - 145 mmol/L [facility] Work Phone: Urea nitrogen (BldV) [Mass/Vol] 18 mg/dL 7 - 20 mg/dL [facility] Work Phone: Test Performed by [facility], [address] [place] [id number] [facility] Work Phone: ED Provider Noteon 1 ED Provider Note Emergency Department Encounter [facility] EMERGENCY DEPT Patient: Velia Bagley : 1960 Date of Evaluation: 09/08/2020 ED Supervising Physician: JARRET TONG MD I independently examined and evaluated Velia Bagley. In brief, Velia Bagley is a 60 y.o. male that presents to the emergency department complaining of shortness of breath. The patient was diagnosed with COVID-19 2 months ago. 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 He awoke this morning. He was hypoxic with pulse oximetry in the low 80s for several minutes at a time. He was told to come to the emergency department. He has a history of COPD. He notes that his daughter of COVID-19 2 weeks ago. He denies any fever or chills. He has recently been treated for pneumonia. Focused exam: On examination the patient is an older middle-aged male found lying on a cart. Pulse oximetry is 91% on 3 L. HEENT exam is otherwise normal. The neck is supple. Chest is clear. Normal cardiac exam. Abdomen is soft flat nontender. Bowel sounds are normal active. Brief ED course/MDM: The patient appears to have episodes of hypoxia. This may be related to COVID-19 disease. We are concerned about the possibility of pulmonary embolus complicating his recovery. CTA of the chest will be obtained. Disposition will be based on results of diagnostic testing and response to therapy. EKG interpretation: An EKG is obtained. It demonstrates a normal sinus rhythm with a rate of 87. The QRS axis is -14 degrees. Left ventricular hypertrophy is present. Nonspecific T wave abnormalities are found. There is no evidence of an ST elevation OR. CRITICAL CARE TIMETotal Critical Care time was 30 minutes, excluding separately reportable procedures. There was a high probability of clinically significant/life threatening deterioration in the patient's condition which required my urgent intervention. The patient's differential diagnosis included pulmonary embolus, exacerbation of COPD, pneumonia. The critical care time of 30 minutes was spent in initially evaluating the patient, discussing the patient's care with family, reviewing previous records, developing a diagnostic plan, reviewing and integrating test results into the patient's recommended treatment plan, as well as interacting with physicians who will be managing the patient after the emergency department. All diagnostic, treatment, and disposition decisions were made by myself in conjunction with the [facility]. For all further details of the patient's emergency department visit, please see their documentation. (Please note that portions of this note may have been completed with a voice recognition program. Efforts were made to edit the dictations but occasionally words are mis-transcribed.) JARRET TONG MD Acute Care [facility] Jarret Tong MD 09/08/20 1343 [facility] ED Provider Note [facility] EMERGENCY DEPT EMERGENCY DEPARTMENT ENCOUNTER Pt Name: Velia Bagley Birthdate 1960 Date of evaluation: 09/08/2020 Provider: JEREMY Donovan CHIEF COMPLAINT Chief Complaint Patient presents with ? Shortness of Breath patient states he is a COVID long hauler has had pneumonia twice post COVID. states he was hypoxic this morning in the 80's. HISTORY OF PRESENT ILLNESS (Location/Symptom, Timing/Onset, Context/Setting, Quality,Duration, Modifying Factors, Severity) Note limiting factors. HPI I have seen this patient With supervising physician Does this patient come from an ECF, SNF, Rehab, Mcfp or other Congregate setting: no (If yes to above patient needs a Covid-19 test) Velia Bagley is a 60 y.o. male who presents to the emergency department for chief, shortness of breath. Patient states that he was diagnosed with Covid a few months ago which he states that he is a Covid long hauler and has a history of asthma COPD and also recent pneumonia in which he finished a dose of antibiotic. He states that he feels short of breath for the past few days in which today he used a pulse ox which showed that he was in the 80s for a few minutes in which he was recommended to come to the emergency department if his pulse ox was under 90 for a few minutes. Patient denies any chest pain patient has no other complaints at this time I wore a N95 during the entire visit REVIEW OF SYSTEMS (2+ for level 4; 10+ for level 5) Review of Systems Constitutional: Negative for chills, fatigue and fever. HENT: Negative for congestion, sinus pain, sore throat and voice change. Eyes: Negative. Respiratory: Positive for shortness of breath. Negative for cough and wheezing. Cardiovascular: Negative for chest pain, palpitations and leg swelling. Gastrointestinal: Negative for abdominal distention, abdominal pain, blood in stool, constipation, diarrhea, nausea and vomiting. Endocrine: Negative. Genitourinary: Negative for dysuria, frequency and hematuria. Musculoskeletal: Negative for arthralgias and neck stiffness. Skin: Negative for color change, pallor, rash and wound. Neurological: Negative for dizziness, weakness, light-headedness, numbness and headaches. Psychiatric/Behavioral: Negative. PAST MEDICAL HISTORY Past Medical History: Diagnosis Date ? Asthma ? COPD (chronic obstructive pulmonary disease) ([facility]) ? Depression ? DVT of leg (deep venous thrombosis) ([facility]) lEFT ? Fibromyalgia ? Headache ? Hyperlipidemia ? Hypertension ? Neuropathy ? TIA (transient ischemic attack) ? Tremors of nervous system SURGICAL HISTORY Past Surgical History: Procedure Laterality Date ? BACK SURGERY ? BRONCHOSCOPY N/A 04/01/2019 BRONCHOSCOPY ALVEOLAR LAVAGE performed by Dayton Fulton MD at [facility] Endoscopy ? HIP SURGERY Right 10/17/2019 ? KNEE SURGERY CURRENT MEDICATIONS Discharge Medication List as of 09/08/2020 5:12 PM CONTINUE these medications which have NOT CHANGED Details budesonide-formoterol (SYMBICORT) 160-4.5 MCG/ACT AERO INHALE 2 PUFFS BY MOUTH TWICE A DAY, Disp-3 Inhaler, R-1Normal !! primidone (MYSOLINE) 50 MG tablet TAKE 3 TABLETS BY MOUTH DAILY AT 7 AM AND TAKE ONE TABLET DAILY AT NOON, Disp-360 tablet, R-1Normal !! levalbuterol (XOPENEX) 0.63 MG/3ML nebulization Take 1 ampule by nebulization every morning Pt to take as ONE every morning.Historical Med !! levalbuterol (XOPENEX) 0.63 MG/3ML nebulization Take 1 ampule by nebulization every 3-4 hours as needed for WheezingHistorical Med tiotropium (SPIRIVA HANDIHALER) 18 MCG inhalation capsule Inhale 1 capsule into the lungs daily, Disp-1 capsule,R-11Normal Umeclidinium [place] 62.5 MCG/INH AEPB Inhale 1 puff into the lungs daily, Disp-1 each,R-5Normal amitriptyline (ELAVIL) 100 MG tablet Take 50 mg by mouth nightlyHistorical Med oxyCODONE (ROXICODONE) 5 MG immediate release tablet Take 5 mg by mouth as needed. Historical Med montelukast (SINGULAIR) 10 MG tablet Take 1 tablet by mouth daily, Disp-90 tablet, R-3Normal levocetirizine (XYZAL) 5 MG tablet Take 0.5 tablets by mouth nightly, Disp-45 tablet, R-1Normal gabapentin (NEURONTIN) 800 MG tablet TAKE 1 TABLET BY MOUTH 4 TIMES DAILY, Disp-120 tablet, R-2Normal losartan (COZAAR) 100 MG tablet TAKE 1 TABLET BY MOUTH EVERY DAY, Disp-90 tablet, R-1Normal naratriptan (AMERGE) 2.5 MG tablet Take 1 tablet by mouth once as needed for Migraine 2.5 mg at onset of headache, may repeat in 4 hours if needed, Disp-9 tablet, R-5Normal !! topiramate (TOPAMAX) 200 MG tablet Take 1 tablet by mouth 2 times daily Indications: 1 tab in AM and 1 tab at 5:00 PM, Disp-60 tablet, R-5Normal !! topiramate (TOPAMAX) 100 MG tablet Take 1 tablet by mouth 2 times daily Indications: 1 tablet at noon and 1 at bedtime, Disp-60 tablet, R-5Normal verapamil (CALAN SR) 120 MG extended release tablet Take 1 tablet by mouth daily, Disp-30 tablet, R-5Nor (more content not included)... Normal [facility] Hemogram w/ Autodiffon 09-08 Abs Baso Cnt 0.0 10*3/uL Normal 0.0-0.2 [facility] Comment on above: Performed By: #### C MP3, TROPN, HEMDF #### [employer] [facility] [address] [place] [phone] Abs Neutrophile Cnt 7.0 10*3/uL Normal 1.8-7.0 [facility] Comment on above: Performed By: #### C MP3RADHAN, HEMDF #### [facility] [address] [place] [address] Basophils/100 WBC (Bld) 0.1 % Normal 0.0-2.0 [facility] Comment on above: Performed By: #### C MP3 TROPN, HEMDF #### [facility] [place] [address] [place], [place] Eosinophils (Bld) [#/Vol] 0.0 10*3/uL Normal 0.0-0.5 [facility] Comment on above: Performed By: #### C MP3 TROPN, HEMDF #### [place] [address] [place], [place] Eosinophils/100 WBC (Bld) 0.0 % Low 1.0-6.0 [facility] Comment on above: Performed By: #### C MP3RADHAN, HEMDF #### [place] [address] [place], [place] Erythrocyte distribution width (RBC) [Ratio] 19.2 % High 11.5-14.5 [facility] Comment on above: Performed By: #### C MP3 TROPN, HEMDF #### [place] [address] [place], [place] Granulocytes/100 WBC (Bld) 85.8 % High 40.0-80.0 [facility] Comment on above: Performed By: #### C MP3 TROPN, HEMDF #### [place] [address] [place], [place] Hematocrit (Bld) [Volume fraction] 35.1 % Low 40.0-52.0 [facility] Comment on above: Performed By: #### C MP3, TROPN, HEMDF #### [place] [address] [place] [address] Hemoglobin (Bld) [Mass/Vol] 11.2 g/dL Low 13.0-18.0 [facility] Comment on above: Performed By: #### C MP3, TROPN, HEMDF #### [place] [address] [place], [place] Lymphocytes (Bld) [#/Vol] 0.9 10*3/uL Low 1.0-4.3 [facility] Comment on above: Performed By: #### C MP3, TROPN, HEMDF #### [place] [address] [place], [place] Lymphocytes/100 WBC (Bld) 11.0 % Low 20.0-40.0 [facility] Comment on above: Performed By: #### C MP3, TROPN, HEMDF #### [place] [address] [place], [place] MCH (RBC) [Entitic mass] 26.7 pg Normal 26.0-34.0 [facility] Comment on above: Performed By: #### C MP3, TROPN, HEMDF #### [place] [address] [place], [place] MCHC 31.8 % Low 32.0-36.0 [facility] Comment on above: Performed By: #### C MP3, TROPN, HEMDF #### [place] [address] [place], [place] MCV (RBC) [Entitic vol] 84.0 fL Normal 80.0-98.0 [facility] Comment on above: Performed By: #### C MP3, TROPN, HEMDF #### [place] [address] [place], [place] Monocytes (Bld) [#/Vol] 0.3 10*3/uL Normal 0.0-0.8 [facility] Comment on above: Performed By: #### C MP3, TROPN, HEMDF #### [address] Monocytes/100 WBC (Bld) 3.1 % Normal 2.0-10.0 [facility] Comment on above: Performed By: #### C MP3, TROPN, HEMDF #### [place] [address] [address] [place], [place] Platelet mean volume (Bld) [Entitic vol] 7.2 fL Low 7.4-10.4 [facility] Comment on above: Performed By: #### C GAVI3NASEEM, HEMDF #### [facility] [address] [place], [place] Platelets (Bld) [#/Vol] 275 10*3/uL Normal 140-440 [facility] Comment on above: Performed By: #### C MP3NASEEM, HEMDF #### [facility] [address] [place], [place] RBC (Bld) [#/Vol] 4.18 10*6/uL Low 4.40-5.90 [facility] Comment on above: Performed By: #### C MP3NASEEM, HEMDF #### [facility] [address] [place], [place] WBC (Bld) [#/Vol] 8.2 10*3/uL Normal 3.6-10.7 [facility] Comment on above: Performed By: #### C NASEEM BRONSON, HEMDF #### [facility] [address] [place], [place] Respiratory Panel, Molecular , with COVID-19 (Restricted: peds pts or suitable admitted adults)Ordered By: Mathew Rios on 09-08-2020 Respiratory Panel Molecular, with COVID NEGATIVE: No targets were detected by the [employer] Upper Respiratory Pathogens PCR Panel. _ Expected Result: Not Detected The [employer] Upper Respiratory Pathogens PCR Panel can detect the following targets: SARS-CoV-2, Adenovirus, Coronavirus 229E, Coronavirus HKU1, Coronavirus NL63, Coronavirus OC43, Human Metapneumovirus, Human Rhinovirus/Enterovirus, Influenza A, Influenza B, Parainfluenza Virus 1, Parainfluenza Virus 2, Parainfluenza Virus 3, Parainfluenza Virus 4, Respiratory Syncytial Virus, Bordetella pertussis, Bordetella parapertussis, Chlamydia pneumoniae, Mycoplasma pneumoniae. Negative results do not preclude SARS-CoV-2 infection and should not be used as the sole basis for treatment or other patient management decisions. This assay was developed by [employer] and distributed under an Emergency Use Authorization (EUA) granted by the FDA for the qualitative detection of SARS-CoV-2 nucleic acid. Provider and patient fact sheets can be found at https://www.fda.gov/medi a/364826/download and https://www.fda.gov/medi a/048612/download. [employer] Work Phone: Test Performed by [facility] [employer], [facility] [place] [address] [employer] Work Phone: TroponinOrdered By: Leland on 09-08-2020 Troponin I.cardiac [Mass/Vol] ng/mL 0.000 - 0.034 ng/mL [employer] Work Phone: Comment on above: . Test Performed by [employer], [facility] [place] [address] [employer] Work Phone: Troponin Ion 09-08-2020 Troponin I.cardiac [Mass/Vol] ng/mL Normal 0.000-0.034 [facility] [employer] Comment on above: Result Comment: . Performed By: #### C MP3, TROPN, HEMDF ####[facility] [place] [address] Heart Rateon 09-05-2020 Heart Rate Regular [facility] [address] Work Phone: Heart Rate Normal [facility] [address] Work Phone: Respirationon 08-30-2020 Heart Rate Regular [facility] [address] DO Work Phone: Respiration Normal [facility] [address] DO Work Phone: Basic Metabolic Panelon 08-03 Anion gap [Moles/Vol] 10 mmol/L Normal 3-13 [facility] Comment on above: Performed By: #### T ROPN, HEMDF, BMP3 #### [facility] [address] [place] [address] Calcium [Mass/Vol] 8.7 mg/dL Normal 8.4-10.4 [facility] Comment on above: Performed By: #### T ROPN, HEMDF, BMP3 #### [address] CO2 [Moles/Vol] 20 mmol/L Low 22-30 [facility] Comment on above: Performed By: #### T ROPN, HEMDF, BMP3 #### [address] Creatinine [Mass/Vol] 1.19 mg/dL Normal 0.52-1.25 [facility] Comment on above: Performed By: #### T ROPN, HEMDF, BMP3 #### [address] GFR/1.73 sq M.predicted among blacks MDRD (S/P/Bld) [Vol rate/Area] 76.7 mL/min/{1.73_m2} Normal >60 [facility] Comment on above: Performed By: #### T ROPN, HEMDF, BMP3 #### [address] GFR/1.73 sq M.predicted among non-blacks MDRD (S/P/Bld) [Vol rate/Area] 66.2 mL/min/{1.73_m2} Normal >60 [facility] Comment on above: Result Comment: KDIG O guidelines provide the following GFR categories: Stage GFR(ml/min/1.73 m2) Terms G1 >=90 Normal or high G2 60-89 Mildly decreased* G3a 45-59 Mildly to moderately decreased G3b 30-44 Moderately to severely decreased G4 15-29 Severely decreased G5 <15 Kidney failure *Relative to young adult level. In the absence of evidence of kidney damage, neither GFR category G1 nor G2 fulfill the criteria for CKD. The CKD-EPI equation is validated in individuals 18 years of age and older. Currently the best equation for estimating glomerular filtration rate (GFR) from serum creatinine in children is the Bedside Peng equation. It is less accurate in patients with extremes of muscle mass, restriction of dietary protein, ingestion of creatine, extra-renal metabolism of creatinine, or treatment with medications that affect renal tubular creatinine secretion. Performed By: #### T ROPJuanita, HEMDF, BMP3 #### [facility] [address] [place], [place] Glucose [Mass/Vol] 95 mg/dL Normal 70-100 [facility] Comment on above: Performed By: #### T ROPN, HEMDF, BMP3 #### [facility] [address] [place], [place] Urea nitrogen [Mass/Vol] 21 mg/dL High 7-20 [facility] Comment on above: Performed By: #### T ROPN, HEMDF, BMP3 #### [facility] [address] [place], [place] Chloride [Moles/Vol] 106 mmol/L Normal 98-107 [facility] Comment on above: Performed By: #### T SUKHDEEPN, HEMDF, BMP3 #### [facility] [address] [place], [place] Potassium [Moles/Vol] 3.9 mmol/L Normal 3.5-5.1 [facility] Comment on above: Performed By: #### T BROOKE, HEMDF, BMP3 #### [facility] [address] [place], [place] Sodium [Moles/Vol] 136 mmol/L Normal 135-145 [facility] Comment on above: Performed By: #### T ROPN, HEMDF, BMP3 #### [facility] [address] [place], [place] Basic Metabolic PanelOrdered By: Felisha Rader on 08-25-2020 Anion gap [Moles/Vol] 10 mmol/L 3 - 13 mmol/L [facility] Work Phone: Calcium [Mass/Vol] 8.7 mg/dL 8.4 - 10. 4 mg/dL [facility] Work Phone: Chloride [Moles/Vol] 106 mmol/L 98 - 10 7 mmol/L [facility] Work Phone: CO2 [Moles/Vol] 20 mmol/L Low 22 - 30 mmol/L [facility] Work Phone: Creatinine [Mass/Vol] 1.19 mg/dL 0.52 - 1.25 mg/dL [employer] Work Phone: EGFR IF NonAfrican Afghan 66.2 mL/min >60 [employer] Work Phone: Comment on above: KDIGO guidelines pro vide the following GFR categories: Stage GFR(ml/min/1.73 m2) Terms G1 >=90 Normal or high G2 60-89 Mildly decreased* G3a 45-59 Mildly to moderately decreased G3b 30-44 Moderately to severely decreased G4 15-29 Severely decreased G5 <15 Kidney failure *Relative to young adult level. In the absence of evidence of kidney damage, neither GFR category G1 nor G2 fulfill the criteria for CKD. The CKD-EPI equation is validated in individuals 18 years of age and older. Currently the best equation for estimating glomerular filtration rate (GFR) from serum creatinine in children is the Bedside Peng equation. It is less accurate in patients with extremes of muscle mass, restriction of dietary protein, ingestion of creatine, extra-renal metabolism of creatinine, or treatment with medications that affect renal tubular creatinine secretion. GFR/1.73 sq M.predicted among blacks MDRD (S/P/Bld) [Vol rate/Area] 76.7 mL/min/{1.73_m2} >60 [facility] Work Phone: Glucose [Mass/Vol] 95 mg/dL 70 - 100 mg/dL [employer] Work Phone: Interpretation and review of laboratory results Abnormal [employer] Work Phone: Potassium [Moles/Vol] 3.9 mmol/L 3.5 - 5.1 mmol/L [employer] Work Phone: Sodium [Moles/Vol] 136 mmol/L 135 - 145 mmol/L [employer] Work Phone: Urea nitrogen (BldV) [Mass/Vol] 21 mg/dL High 7 - 20 mg/dL [employer] Work Phone: Test Performed by [facility], [address] [place] [id number] [employer] Work Phone: CR Chest Portableon 04-24-20 21 CR Chest Portable Patient Name: VELIA SALMERON Diagnostic Radiology ACCESSION EXAM DATE/TIME PROCEDURE ORDERING PROVIDER [id number] 08/25/2020 14:37 EDT CR Chest Portable [id number] MOSELEY CPT code 51350 Reason For Exam (CR Chest Portable) syncope Report Portable chest 08/25/2020: Clinical Information: Syncope. Findings: A single AP portable view of the chest was obtained at 1429 hours. Comparison was made to the prior study 09/27/2017. The trachea is midline. The heart is not enlarged. There are bilateral patchy infiltrates, left greater than right. Report Dictated on Final Dictated: 08/25/2020 2:51 pm Dictating Physician: MD LIPSCOMB RISA Signed Date and Time: 08/25/2020 2:52 pm Signed by: MD LIPSCOMB RISA Transcribed Date and Time: 08/25/2020 2:51 Normal [facility] CT Head WO ContrastOrdered B y: Felisha Sealouis on 08-25-2020 Patient Name: VELIA SALMERON Computed Tomography ACCESSION EXAM DATE/TIME PROCEDURE ORDERING PROVIDER [id number] 08/25/2020 14:[address] Head or Brain w/o [id number] Felisha CAI Contrast CPT code 37884 Reason For Exam (CT Head or Brain w/o Contrast) syncope Report Indication: Syncope Comparison date: 01/17/2017 FINDINGS: 3 mm unenhanced imaging of the brain performed. Images viewed in multiple orthogonal planes. There is no definite acute edema, midline shift, acute hemorrhage, or findings to suggest high likelihood of large acute infarct, within limits of the study. MRI more specific/sensitive. No abnormal extra-axial fluid collections visualized. Bony structures:Unremarkable as seen. CSF spaces are unremarkable. Orbits within normal limits. Review of the paranasal sinuses shows no air-fluid levels. IMPRESSION: No acute brain process identified. Report Dictated on --- Final --- Dictated: 08/25/2020 2:17 pm Dictating Physician: MD LAI JOHN Signed Date and Time: 08/25/2020 2:19 pm Signed by: MD LAI JOHN Transcribed Date and Time: 08/25/2020 2:17 [facility] Work [facility]: [place] - 08/25/2020 2:20 PM EDT Patient Name: VELIA BAGLEY Computed Tomography ACCESSION EXAM DATE/TIME PROCEDURE ORDERING PROVIDER [id number] 08/25/2020 14:[address] Head or Brain w/o [id number] -MORAH, J Contrast CPT code 47947 Reason For Exam (CT Head or Brain w/o Contrast) syncope Report Indication: Syncope Comparison date: 01/17/2017 FINDINGS: 3 mm unenhanced imaging of the brain performed. Images viewed in multiple orthogonal planes. There is no definite acute edema, midline shift, acute hemorrhage, or findings to suggest high likelihood of large acute infarct, within limits of the study. MRI more specific/sensitive. No abnormal extra-axial fluid collections visualized. Bony structures:Unremarkable as seen. CSF spaces are unremarkable. Orbits within normal limits. Review of the paranasal sinuses shows no air-fluid levels. IMPRESSION: No acute brain process identified. Report Dictated on --- Final --- Dictated: 08/25/2020 2:17 pm Dictating Physician: MD LAI JOHN Signed Date and Time: 08/25/2020 2:19 pm Signed by: MD LAI JOHN Transcribed Date and Time: 08/25/2020 2:17 [facility] Work Phone: CT Head or Brain w/o Contras ton 08-25-2020 CT Head or Brain w/o Contrast Patient Name: VELIA BAGLEY Computed Tomography ACCESSION EXAM DATE/TIME PROCEDURE ORDERING PROVIDER [id number] 08/25/2020 14:[address] Head or Brain w/o [id number] -MORAH, J Contrast CPT code 07220 Reason For Exam (CT Head or Brain w/o Contrast) syncope Report Indication: Syncope Comparison date: 01/17/2017 FINDINGS: 3 mm unenhanced imaging of the brain performed. Images viewed in multiple orthogonal planes. There is no definite acute edema, midline shift, acute hemorrhage, or findings to suggest high likelihood of large acute infarct, within limits of the study. MRI more specific/sensitive. No abnormal extra-axial fluid collections visualized. Bony structures:Unremarkable as seen. CSF spaces are unremarkable. Orbits within normal limits. Review of the paranasal sinuses shows no air-fluid levels. IMPRESSION: No acute brain process identified. Report Dictated on Final Dictated: 08/25/2020 2:17 pm Dictating Physician: MD LAI JOHN Signed Date and Time: 08/25/2020 2:19 pm Signed by: MD LAI JOHN Transcribed Date and Time: 08/25/2020 2:17 Normal [facility] ED Provider Noteon ED Provider Note [facility] EMERGENCY DEPT EMERGENCY DEPARTMENT ENCOUNTER Pt Name: Velia Bagley Birthdate 1960 Date of evaluation: 08/25/2020 Provider: Felisha Rader MD CHIEF COMPLAINT Chief Complaint Patient presents with ? Dizziness patient was visiting in ICU his terminally ill daughter and per the family he had a syncopal episode. HISTORY OF PRESENT ILLNESS (Location/Symptom, Timing/Onset, Context/Setting, Quality, Duration, Modifying Factors, Severity) Note limiting factors. I wore an N95 mask for the entirety of this encounter. Does this patient come from an ECF, SNF, Rehab, Mcfp or other Congregate setting: no (If yes to above patient needs a Covid-19 test) HPI Velia Bagley is a 60 y.o. male who presents to the emergency department after a syncopal episode. The patient was visiting a family member who was being terminally extubated in the intensive care unit, when he had a syncopal episode. Per family at the bedside, the patient was seated in his wheelchair and suddenly was visualized slumping over but they grabbed him and he did not hit his head. He denies any seizure-like activity. The family member states that this is how the patient gets when he is stressed and exhausted. 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 He states that he has a remote history of a CVA that left himwith left upper and lower extremity weakness. The patient presents very tired appearing with fragmented speech but denies any chest pain or shortness of breath currently or prior to the syncopal episode. He denies any current symptoms aside from fatigue and weakness. Nursing Notes were reviewed. REVIEW OF SYSTEMS (2+ for level 4; 10+ for level 5) Review of Systems 14 systems reviewed and otherwise acutely negative except as in the history of present illness. PAST MEDICAL HISTORY Past Medical History: Diagnosis Date ? Asthma ? COPD (chronic obstructive pulmonary disease) (HCC) ? Depression ? DVT of leg (deep venous thrombosis) (HCC) lEFT ? Fibromyalgia ? Headache ? Hyperlipidemia ? Hypertension ? Neuropathy ? TIA (transient ischemic attack) ? Tremors of nervous system SURGICAL HISTORY Past Surgical History: Procedure Laterality Date ? BACK SURGERY ? BRONCHOSCOPY N/A 04/01/2019 BRONCHOSCOPY ALVEOLAR LAVAGE performed by Dayton Fulton MD at [facility] Endoscopy ? HIP SURGERY Right 10/17/2019 ? KNEE SURGERY CURRENT MEDICATIONS Previous Medications ALBUTEROL (PROVENTIL) (2.5 MG/3ML) 0.083% NEBULIZER SOLUTION Take 3 mLs by nebulization every 6 hours as needed for Wheezing ALBUTEROL SULFATE (PROAIR HFA IN) Inhale into the lungs AMITRIPTYLINE (ELAVIL) 100 MG TABLET Take 50 mg by mouth nightly AMLODIPINE (NORVASC) 5 MG TABLET TAKE 1 TABLET BY MOUTH EVERY DAY ATORVASTATIN (LIPITOR) 40 MG TABLET TAKE 1 TABLET BY MOUTH EVERY DAY BENRALIZUMAB (FASENRA) 30 MG/ML SOSY INJECTION Indications: given every 2 months BUDESONIDE-FORMOTEROL (SYMBICORT) 160-4.5 MCG/ACT AERO INHALE 2 PUFFS BY MOUTH TWICE A DAY CATHETERS (SELF-CATH PLUS STRAIGHT TIP) MISC Prelube Cure ultra M 14 F Straight Cath QID CELECOXIB (CELEBREX) 200 MG CAPSULE Take 200 mg by mouth 4 times daily CLONIDINE (CATAPRES) 0.1 MG TABLET TAKE 1 TABLET BY MOUTH TWICE A DAY DULOXETINE (CYMBALTA) 60 MG EXTENDED RELEASE CAPSULE Take 1 capsule by mouth daily FLUTICASONE (FLONASE) 50 MCG/ACT NASAL SPRAY 1 spray by Nasal route daily GABAPENTIN (NEURONTIN) 800 MG TABLET TAKE 1 TABLET BY MOUTH 4 TIMES DAILY LEVALBUTEROL (XOPENEX) 0.63 MG/3ML NEBULIZATION Take 1 ampule by nebulization every morning Pt to take as ONE every morning. LEVALBUTEROL (XOPENEX) 0.63 MG/3ML NEBULIZATION Take 1 ampule by nebulization every 3-4 hours as needed for Wheezing LEVOCETIRIZINE (XYZAL) 5 MG TABLET Take 0.5 tablets by mouth nightly LOSARTAN (COZAAR) 100 MG TABLET TAKE 1 TABLET BY MOUTH EVERY DAY MONTELUKAST (SINGULAIR) 10 MG TABLET Take 1 tablet by mouth daily NARATRIPTAN (AMERGE) 2.5 MG TABLET Take 1 tablet by mouth once as needed for Migraine 2.5 mg at onset of headache, may repeat in 4 hours if needed NITROFURANTOIN, MACROCRYSTAL-MONOHYDRATE , (MACROBID) 100 MG CAPSULE Take 100 mg by mouth daily OMEPRAZOLE (PRILOSEC) 20 MG DELAYED RELEASE CAPSULE TAKE 1 CAPSULE BY MOUTH TWICE A DAY OXYCODONE (ROXICODONE) 5 MG IMMEDIATE RELEASE TABLET Take 5 mg by mouth as needed. POTASSIUM CHLORIDE (KLOR-CON M) 20 MEQ EXTENDED RELEASE TABLET Take 1 tablet by mouth 2 times daily PRIMIDONE (MYSOLINE) 250 MG TABLET Take 250 mg by mouth daily Indications: patient stated he takes in evening PRIMIDONE (MYSOLINE) 50 MG TABLET 3 tablets at 7 am PRIMIDONE (MYSOLINE) 50 MG TABLET TAKE 3 TABLETS BY MOUTH DAILY AT 7 AM AND TAKE ONE TABLET DAILY AT NOON SPIRONOLACTONE (ALDACTONE) 25 MG TABLET TAKE 1 TABLET BY MOUTH EVERY DAY TAMSULOSIN (FLOMAX) 0.4 MG CAPSULE Take 0.8 m (more content not included)... Normal [facility] 08-25-2020 Glucose [Mass/Vol] 110 mg/dL High 70-100 [facility] Comment on above: Result Comment: Test performed by glucose meter. Results may be 10%-15% lower than serum/plasma values. (CLIA ID [id number]) Performed By: #### B GLU #### [facility] [address] [place] [id number] Hemogram (CBC) w/Auto DiffOr dered By: Felisha Rader on 08-25-2020 Absolute Baso # 0.0 10*3/uL 0.0 - 0.2 10*3/uL [facility] Work Phone: Absolute Neut # 4.5 10*3/uL 1.8 - 7.0 10*3/uL [facility] Work Phone: Basophils/100 WBC (Bld) 0.1 % 0.0 - 2.0 % [facility] Work Phone: Eosinophils (Bld) [#/Vol] 0.0 10*3/uL 0.0 - 0.5 10*3/uL [facility] Work Phone: Eosinophils/100 WBC (Bld) 0.0 % Low 1.0 - 6.0 % [facility] Work Phone: Granulocytes/100 WBC (Bld) 68.9 % 40.0 - 80.0 % [facility] Work Phone: Hematocrit (Bld) [Volume fraction] 32.5 % Low 40.0 - 52.0 % [facility] Work Phone: Hemoglobin.gastrointe stinal spec 1 Ql (Stl) 10.3 g/dL Low 13.0 - 18.0 g/dL [facility] Work Phone: Interpretation and review of laboratory results Abnormal [employer] Work Phone: Lymphocytes (Bld) [#/Vol] 1.5 10*3/uL 1.0 - 4.3 10*3/uL [facility] Work Phone: Lymphocytes/100 WBC (Bld) 23.3 % 20.0 - 40.0 % [facility] Work Phone: MCH (RBC) [Entitic mass] 26.4 pg 26.0 - 34.0 pg [facility] Work Phone: MCHC (RBC) [Mass/Vol] 31.8 % Low 32.0 - 36.0 % [facility] Work Phone: MCV (RBC) [Entitic vol] 82.9 fL 80.0 - 98.0 fL [facility] Work Phone: Monocytes (Bld) [#/Vol] 0.5 10*3/uL 0.0 - 0.8 10*3/uL [employer] Work Phone: Monocytes/100 WBC (Bld) 7.7 % 2.0 - 10.0 % [facility] Work Phone: Platelet distribution width (Bld) [Ratio] 18.2 % High 11.5 - 14.5 % [employer] Work Phone: Platelet mean volume (Bld) [Entitic vol] 7.1 fL Low 7.4 - 10.4 fL [employer] Work Phone: Platelets (Bld) [#/Vol] 275 10*3/uL 140 - 440 10*3/uL [employer] Work Phone: RBC (Bld) [#/Vol] 3.92 10*6/uL Low 4.40 - 5.9 0 10*6/uL [employer] Work Phone: WBC (Bld) [#/Vol] 6.5 10*3/uL 3.6 - 10.7 10*3/uL [employer] Work Phone: Test Performed by [facility] [employer], [address] [place] [address] [facility] Work Phone: Hemogram w/ Autodiffon 08-25 Abs Baso Cnt 0.0 10*3/uL Normal 0.0-0.2 [facility] Comment on above: Performed By: #### T ROPN, HEMDF, BMP3 #### [facility] [employer] [address] [place] [phone] Abs Neutrophile Cnt 4.5 10*3/uL Normal 1.8-7.0 [facility] [employer] Comment on above: Performed By: #### T ROPN, HEMDF, BMP3 #### [facility] [employer] [address] [place] [phone] Basophils/100 WBC (Bld) 0.1 % Normal 0.0-2.0 [facility] Comment on above: Performed By: #### T BROOKE HEMDF, BMP3 #### [place] [address] [place], [place] Eosinophils (Bld) [#/Vol] 0.0 10*3/uL Normal 0.0-0.5 [facility] Comment on above: Performed By: #### T BROOKE HEMDF, BMP3 #### [place] [address] [place], [place] Eosinophils/100 WBC (Bld) 0.0 % Low 1.0-6.0 [facility] Comment on above: Performed By: #### T BROOKE HEMDF, BMP3 #### [place] [address] [place], [place] Erythrocyte distribution width (RBC) [Ratio] 18.2 % High 11.5-14.5 [facility] Comment on above: Performed By: #### T BROOKE HEMDF, BMP3 #### [place] [address] [place], [place] Granulocytes/100 WBC (Bld) 68.9 % Normal 40.0-80.0 [facility] Comment on above: Performed By: #### T BROOKE HEMDF, BMP3 #### [address] Hematocrit (Bld) [Volume fraction] 32.5 % Low 40.0-52.0 [facility] Comment on above: Performed By: #### T BROOKE HEMDF, BMP3 #### [place] [address] [address] [place], [place] Hemoglobin (Bld) [Mass/Vol] 10.3 g/dL Low 13.0-18.0 [facility] Comment on above: Performed By: #### T BROOKE HEMDF, BMP3 #### [place] [address] [place], [place] Lymphocytes (Bld) [#/Vol] 1.5 10*3/uL Normal 1.0-4.3 [facility] Comment on above: Performed By: #### T ROPJuanita HEMDF, BMP3 #### [facility] [address] [place], [place] Lymphocytes/100 WBC (Bld) 23.3 % Normal 20.0-40.0 [facility] Comment on above: Performed By: #### T ROPN, HEMDF, BMP3 #### [facility] [address] [place], [place] MCH (RBC) [Entitic mass] 26.4 pg Normal 26.0-34.0 [facility] Comment on above: Performed By: #### T ROPN, HEMDF, BMP3 #### [place] [address] [address] [place] MCHC 31.8 % Low 32.0-36.0 [facility] Comment on above: Performed By: #### T ROPN, HEMDF, BMP3 #### [place] [address] [address] [place] MCV (RBC) [Entitic vol] 82.9 fL Normal 80.0-98.0 [facility] Comment on above: Performed By: #### T ROPN, HEMDF, BMP3 #### [place] [address] [address] [place], [place] Monocytes (Bld) [#/Vol] 0.5 10*3/uL Normal 0.0-0.8 [facility] Comment on above: Performed By: #### T ROPN, HEMDF, BMP3 #### [place] [address] [address] [place], [place] Monocytes/100 WBC (Bld) 7.7 % Normal 2.0-10.0 [facility] Comment on above: Performed By: #### T ROPN, HEMDF, BMP3 #### [place] [address] [address] [place] Platelet mean volume (Bld) [Entitic vol] 7.1 fL Low 7.4-10.4 [facility] Comment on above: Performed By: #### T ROPN, HEMDF, BMP3 #### [place] [address] [place] [address] Platelets (Bld) [#/Vol] 275 10*3/uL Normal 140-440 [facility] Comment on above: Performed By: #### T NATHAN COX, BMP3 #### [place] [address] [place], [place] RBC (Bld) [#/Vol] 3.92 10*6/uL Low 4.40-5.90 [facility] Comment on above: Performed By: #### Yasmany COX HEMJOSE MARTIN, BMP3 #### [place] [address] [place], [place] WBC (Bld) [#/Vol] 6.5 10*3/uL Normal 3.6-10.7 [facility] Comment on above: Performed By: #### NATHAN ROSAS, BMP3 #### [address] POCT GlucoseOrdered By: Unkn own Result on 08-25-2020 Glucose [Mass/Vol] 110 mg/dL High 70 - 100 mg/dL [facility] Work Phone: Comment on above: Test performed by gl ucose meter. Results may be 10%-15% lower than serum/plasma values. (CLIA ID [id number]) Interpretation and review of laboratory results Abnormal [facility] Work Phone: Test Performed by [facility], [address] [place] [address] [facility] Work Phone: Troponin Ion 08-25-2020 Troponin I.cardiac [Mass/Vol] ng/mL Normal 0.000-0.034 [facility] Comment on above: Result Comment: . Performed By: #### Yasmany COX HEMJOSE MARTIN, BMP3 #### [facility] [employer] [address] Troponin [id number] By: Felisha myers on 08-25-2020 Troponin I.cardiac [Mass/Vol] ng/mL 0.000 - 0.034 ng/mL [facility] Work Phone: Comment on above: . Test Performed by [facility], [address] [place] [id number] [place], [place] [address]A Work Phone: XR CHEST PORTABLEOrdered By: Felisha Rader on 08-25-2020 Patient Name: VELIA SALMERON Diagnostic Radiology ACCESSION EXAM DATE/TIME PROCEDURE ORDERING PROVIDER [id number] 08/25/2020 14:37 EDT CR Chest Portable [id number] Felisha CAI CPT code 33598 Reason For Exam (CR Chest Portable) syncope Report Portable chest 08/25/2020: Clinical Information: Syncope. Findings: A single AP portable view of the chest was obtained at 1429 hours. Comparison was made to the prior study 09/27/2017. The trachea is midline. The heart is not enlarged. There are bilateral patchy infiltrates, left greater than right. Report Dictated on --- Final --- Dictated: 08/25/2020 2:51 pm Dictating Physician: MD LIPSCOMB RISA Signed Date and Time: 08/25/2020 2:52 pm Signed by: MD LIPSCOMB RISA Transcribed Date and Time: 08/25/2020 2:51 [facility] Work Phone: [facility] Incoming Radiology [facility] - 08/25/2020 2:53 PM EDT Patient Name: VELIA BAGLEY Diagnostic Radiology ACCESSION EXAM DATE/TIME PROCEDURE ORDERING PROVIDER [id number] 08/25/2020 14:37 EDT CR Chest Portable [id number] REESE CPT code 86988 Reason For Exam (CR Chest Portable) syncope Report Portable chest 08/25/2020: Clinical Information: Syncope. Findings: A single AP portable view of the chest was obtained at 1429 hours. Comparison was made to the prior study 09/27/2017. The trachea is midline. The heart is not enlarged. There are bilateral patchy infiltrates, left greater than right. Report Dictated on --- Final --- Dictated: 08/25/2020 2:51 pm Dictating Physician: MD LIPSCOMB RISA Signed Date and Time: 08/25/2020 2:52 pm Signed by: MD RUEL, ERIC Transcribed Date and Time: 08/25/2020 2:51 [facility] Work Phone: CASE MANAGEMon 08-06-2020 CASE MANAGEM HNO ID: [id number] Author: Jd (Rn) BULL Huertas Service: Care Management Author Type: Registered Nurse Type: Care Mgt Progress Note Filed: 08/06/2020 3:36 PM Note Text: CARE MANAGEMENT DISCHARGE NOTE SERVICE DATE: 08/06/2020 SERVICE TIME: 3:28 PM LOS: 7 days Admission Date: 07/29/2020 DISCHARGE ARRANGEMENT (list agency and phone number) Discharge Arrangement: Home Retirement Care: Nursing;PT;OT;Social Work;Other Service (PLANER STONE) Provider Name: Rachel Rayo CAREGIVER ASSESSMENT: Caregiver is ready, willing and able to meet the patient's needs as recommended by the inter-professional team:: Yes Does the patient have an acute stroke diagnosis, or has the patient had a stroke during this admission?: No Patient's transition needs and plan for meeting these needs: To daughter's home at [address] [place] [phone] with [facility] HANDOFF COMMUNICATION: Handoff to: Primary Care Physician Primary Care Physician Name/Phone: summary of care sent to PCP TRANSPORTATION ARRANGEMENTS: Transportation Arrangements: Car (with family) ADDITIONAL CONTACT RESOURCES: see below Discharge Information Row Name ED to Hosp-Admission (Current) from 07/29/2020 in [place] [address] NEURO/CARD Home Health Care Agency [facility] Start of Care 08/07/20 Durable Medical Equipment Agency [facility] Equipment Needed Home oxygen concentrator and portable oxygen tank Pt dc to daughter's house at [address] [place], [address] today with [facility] starting care tomorrow at the daughter's house and [facility] to deliver portable oxygen and home concentrator to pt's daughter's house today. Family will bring portable oxygen tank with them when they come to hop picker the patient today. SIGNATURE: Jd Huertas RN PATIENT NAME: Velia Bagley DATE: August 06, 2020 TIME: 3:28 PM PAGER/CONTACT #: [phone] [facility] CASE MANAGEM HNO ID: [id number] Author: Jd (Rn) BULL Huertas Service: Care Management Author Type: Registered Nurse Type: Care Mgt Progress Note Filed: 08/06/2020 12:35 PM Note Text: CARE MANAGEMENT PROGRESS NOTE SERVICE DATE: 08/06/2020 SERVICE TIME: 12:32 PM LOS: 7 days [place] of Choice Given: Yes Level of Care Discussed: Other: See Comment;Home Care (resiperatory DME) Financial Disclosure Provided: Yes Financial Disclosure Comments: with patient Provider List: Home Care;DME Provider list within the patient's requested geographic area shared with the patient/family: No Quality and resource use metrics shared with the patient that are relevant to the patient's goals of care and treatment preferences:: No Needs Prior to Discharge: Oxygen Set-up;Home Care Order;Facility or Agency Choices IMM Follow Up Copy Given: Yes Copy given to:: Patient Method: By Phone (COVID protocol) Chart reviewed. PT recommends home PT. RN charted ambulatory pulse ox and the patient qualifies for home oxygen. [employer] will be able to deliver home oxygen to pt's home address in [place], [place] and even to his daughter's home at [address] [place] [address]. The patient is planning to dc to his daughter's home because his apartment is under renovation. Pt has no preference in [facility] agency. I will update patient with name of [facility] agency when arranged. Pt states his family will pick him up from the hospital when ready for dc. Will need [facility] orders for PT/OT/SN and oxygen script at dc. SIGNATURE: Jd Huertas RN PATIENT NAME: Velia Bagley DATE: August 06, 2020 TIME: 12:32 PM PAGER/CONTACT #: [phone] [facility] CBC Pnl Bld Autoon 1 Erythrocyte distribution width (RBC) [Ratio] 16.3 % High 11.5-15.0 [facility] Comment on above: Order Comment: Speci men Type: BLOOD SPECIMEN Performed By: #### 3 4528-0 #### [facility] CLIA [id number] [address] [place] [address] Hematocrit (Bld) [Volume fraction] 31.4 % Low 39.0-51.0 [facility] Comment on above: Order Comment: Speci men Type: BLOOD SPECIMEN Performed By: #### 3 4528-0 #### [facility] CLIA [id number] [address] [place] [address] Hemoglobin (Bld) [Mass/Vol] 10.0 g/dL Low 13.0-17.0 [facility] Comment on above: Order Comment: Speci men Type: BLOOD SPECIMEN Performed By: #### 3 4528-0 #### [facility] CLIA [id number] [address] [place] [address] MCH (RBC) [Entitic mass] 26.6 pg Normal 26.0-34.0 [facility] Comment on above: Order Comment: Speci men Type: BLOOD SPECIMEN Performed By: #### 3 4528-0 #### [facility] CLIA [id number] [address] [place] [address] MCHC (RBC) [Mass/Vol] 31.8 g/dL Normal 30.5-36.0 [facility] Comment on above: Order Comment: Speci men Type: BLOOD SPECIMEN Performed By: #### 3 4528-0 #### [facility] CLIA [id number] [address] [place] [address] MCV (RBC) [Entitic vol] 83.5 fL Normal 80.0-100.0 [facility] Comment on above: Order Comment: Speci men Type: BLOOD SPECIMEN Performed By: #### 3 4528-0 #### [facility] CLIA [id number] [address] [place] [address] Nucleated RBC (Bld) [#/Vol] 10*3/uL Normal <0.01 [facility] Comment on above: Order Comment: Speci men Type: BLOOD SPECIMEN Performed By: #### 3 4528-0 #### [facility] CLIA [id number] [address] [place] [address] Platelet mean volume (Bld) [Entitic vol] 9.5 fL Normal 9.0-12.7 [facility] Comment on above: Order Comment: Speci men Type: BLOOD SPECIMEN Performed By: #### 3 4528-0 #### [facility] CLIA [id number] [address] [place] [address] Platelets (Bld) [#/Vol] 212 10*3/uL Normal 150-400 [facility] Comment on above: Order Comment: Speci men Type: BLOOD SPECIMEN Performed By: #### 3 4528-0 #### [facility] CLIA [id number] [address] [place] [address] RBC (Bld) [#/Vol] 3.76 10*6/uL Low 4.20-6.00 [facility] Comment on above: Order Comment: Speci men Type: BLOOD SPECIMEN Performed By: #### 3 4528-0 #### [facility] CLIA [id number] [address] [place] [address] WBC (Bld) [#/Vol] 7.69 10*3/uL Normal 3.70-11.00 [facility] Comment on above: Order Comment: Speci men Type: BLOOD SPECIMEN Performed By: #### 3 4528-0 #### [facility] CLIA [id number] [address] [place] [address] Comp Metab 2000 Pnl SerPlon 08-06-2020 Albumin [Mass/Vol] 3.2 g/dL Low 3.9-4.9 [facility] Comment on above: Order Comment: Speci men Type: URINE SPECIMEN Performed By: #### 2 4356-8 #### [facility] CLIA [id number] [address] [place] [address] ALP [Catalytic activity/Vol] 86 U/L Normal 38-113 [facility] Comment on above: Order Comment: Speci men Type: URINE SPECIMEN Performed By: #### 2 4356-8 #### [facility] CLIA [id number] [address] [place] [address] ALT With P-5'-P [Catalytic activity/Vol] 27 U/L Normal 10-54 [facility] Comment on above: Order Comment: Speci men Type: URINE SPECIMEN Performed By: #### 2 4356-8 #### [facility] CLIA [id number] [address] [place] [address] Anion gap [Moles/Vol] 13 mmol/L Normal 9-18 [facility] Comment on above: Order Comment: Speci men Type: URINE SPECIMEN Performed By: #### 2 4356-8 #### [facility] CLIA [id number] [address] [place] [address] AST With P-5'-P [Catalytic activity/Vol] 44 U/L High 14-40 [facility] Comment on above: Order Comment: Speci men Type: URINE SPECIMEN Performed By: #### 2 4356-8 #### [facility] CLIA [id number] [address] [place] [address] Bilirubin [Mass/Vol] 0.4 mg/dL Normal 0.2-1.3 [facility] Comment on above: Order Comment: Speci men Type: URINE SPECIMEN Performed By: #### 2 4356-8 #### [facility] CLIA [id number] [address] [place] [address] Calcium [Mass/Vol] 8.0 mg/dL Low 8.5-10.2 [facility] Comment on above: Order Comment: Speci men Type: URINE SPECIMEN Performed By: #### 2 4356-8 #### [facility] CLIA [id number] [address] [place] [address] Chloride [Moles/Vol] 108 mmol/L High 97-105 [facility] Comment on above: Order Comment: Speci men Type: URINE SPECIMEN Performed By: #### 2 4356-8 #### [facility] CLIA [id number] [address] [place] [address] CO2 [Moles/Vol] 18 mmol/L Low 22-30 [facility] Comment on above: Order Comment: Speci men Type: URINE SPECIMEN Performed By: #### 2 4356-8 #### [facility] CLIA [id number] [address] [place] [address] Creatinine [Mass/Vol] 0.83 mg/dL Normal 0.73-1.22 [facility] Comment on above: Order Comment: Speci men Type: URINE SPECIMEN Performed By: #### 2 4356-8 #### [facility] CLIA [id number] [address] [place] [address] GFR/1.73 sq M.predicted MDRD (S/P/Bld) [Vol rate/Area] mL/min/{1.73_m2} Normal [facility] Comment on above: Order Comment: Speci men Type: URINE SPECIMEN Result Comment: >60 eGFR (Estimated GFR) Units of measure: mL/min/1.73 meters squared eGFR is derived from the reexpressed MDRD Study equation using the following parameters: serum creatinine, age, gender and race. The creatinine assay has been calibrated to be traceable to IDMS. An eGFR <60 mL/min/1.73m2 for >3 months is consistent with chronic kidney disease. Refer to KDOQI guidelines for clinical interpretation. In patients with unstable renal function, e.g. those with acute kidney injury, the eGFR may not accurately reflect actual GFR. Performed By: #### 2 4356-8 #### [facility] CLIA [id number] [address] [place] [address] Glucose [Mass/Vol] 76 mg/dL Normal 74-99 [facility] Comment on above: Order Comment: Speci men Type: URINE SPECIMEN Result Comment: The [place] [employer] (ADA) provides guidance for cutoff values for fasting glucose and random glucose. The ADA defines fasting as no caloric intake for at least 8 hours. Fasting plasma glucose results between 100 to 125 mg/dL indicate increased risk for diabetes (prediabetes). Fasting plasma glucose results greater than or equal to 126 mg/dL meet the criteria for diagnosis of diabetes. In the absence of unequivocal hyperglycemia, results should be confirmed by repeat testing. In a patient with classic symptoms of hyperglycemia or hyperglycemic crisis, random plasma glucose results greater than or equal to 200 mg/dL meet the criteria for diagnosis of diabetes. Reference: Standards of Medical Care in Diabetes 2016, [place] [employer]. Diabetes Care. 2016.39(Suppl 1). Performed By: #### 2 4356-8 #### [facility] CLIA [id number] [address] [place] [address] Potassium [Moles/Vol] 3.0 mmol/L Low 3.7-5.1 [facility] Comment on above: Order Comment: Speci men Type: URINE SPECIMEN Performed By: #### 2 4356-8 #### [facility] CLIA [id number] [address] [place] [address] Protein [Mass/Vol] 5.7 g/dL Low 6.3-8.0 [facility] Comment on above: Order Comment: Speci men Type: URINE SPECIMEN Performed By: #### 2 4356-8 #### [facility] CLIA [id number] [address] [place] [address] Sodium [Moles/Vol] 139 mmol/L Normal 136-144 [facility] Comment on above: Order Comment: Speci men Type: URINE SPECIMEN Performed By: #### 2 4356-8 #### [facility] CLIA [id number] [address] [place] [address] Urea nitrogen [Mass/Vol] 19 mg/dL Normal 9-24 [facility] Comment on above: Order Comment: Speci men Type: URINE SPECIMEN Performed By: #### 2 4356-8 #### [facility] CLIA [id number] [address] [place] [address] NURSING PROGon 08-06-2020 NURSING PROG HNO ID: [id number] Author: Faiza Smith RN Service: Neurology General Author Type: Registered Nurse Type: Nursing Progress Note Filed: 08/06/2020 11:52 AM Note Text: CASE MANAGEMENT HOME OXYGEN EVALUATION SERVICE DATE: 08/06/2020 Patient Location: [id number]/[id number] * SERVICE TIME: 11:45 Assessment: Patient's SPO2 on room air at rest is 89 %. Patient's SPO2 on room air with exercise is 87 %. Patient's SPO2 on 2 L/min O2 with exercise is 89 %. SIGNATURE: Faiza Smith RN PATIENT NAME: Velia Bagley DATE: August 06, 2020 TIME: 11:43 AM PAGER/CONTACT #: Nursing Progress Note Patient Name: Velia Bagley Patient Location: [place] [address]/[facility] 05-04 Daily Note: ambulatory pulse ox completed This note was completed by: Faiza Smith RN [facility] NUTRITIONon 08-06-2020 NUTRITION HNO ID: [id number] Author: Liv Engel) NICKI Mclean Service: Nutrition Therapy Author Type: Registered Dietitian Type: Nutrition Filed: 08/06/2020 2:43 PM Note Text: NUTRITION THERAPY INITIAL ASSESSMENT SERVICE DATE: 08/06/2020 SERVICE TIME: 14:30 Nutrition Assessment: Recommended Malnutrition Diagnosis: Mild Protein-Calorie Malnutrition In the context of: Acute Illness or Injury Based on: Insufficient Energy Intake Nutrition Diagnosis: Problem: Suboptimal protein/energy intake Related to: Inability to consume sufficient nutrients As evidenced by: Intake records Estimated kilocalorie needs: 7669-4550 Calorie Calculation Method: 30-35 kcals/kg Estimated protein needs (grams): 75-113 Grams protein determined by: 1.0 - 1.5 g/kg Care Plan: Continue current diet Supplements: Magic Cup TID Monitor and Evaluation: Meet greater than 75% of estimated needs;Monitor bowel function;Monitor fluid/electrolyte balance;Monitor labs, I/Os, vital signs, weight Discharge Recommendations: Diet;Oral Supplements Diet: Regular Oral Supplements: high protein, high calorie item of choice until appetite returns to baseline AND weight remains stable HPI: 60 year old male with history HTN, COPD, GERD, TIA presenting with SOB AND cough. +COVID PNA. ID following. +KRISTA on admit. Intake History: Nutrition Intake Prior to Admission: Unable to determine Current Intake: Less than 50% estimated energy needs Over: 7 days per nursing flowsheet. RN reports he did not eat much of anything at all today, states he will eat a popsicle when he goes home. Did not seem interested in food during stay. Diet Orders (From admission, onward) Start Ordered 07/30/20929 DIET REGULAR START NOW 07/30/20 09 Anthropometrics: Height: 177.8 cm (5' 10 ) Weight: 86.5 kg (190 lb 11.2 oz) Dosing Weight: 75.3 kg (166 lb) Body mass index is 27.36 kg/m?. Weight change percentage over time: unable to determine usual weight due to patient did not answer phone x multiple phone calls through day. Weight appears down 8 lbs (4%) x 4 mos but unable to confirm timeframe of loss Physical Exam: Reason NFPE not performed: Unable to participate (+COVID) Potential micronutrient deficiency: Unable to determine at this time Edema/Ascites: No edema (per nursing flowsheet) GI Symptoms: Unable to determine at this time (diarrhea reported 4/2) Functional Status: Regressed (weak with therapy) Potential Signs of Inflammation: Hypoalbuminemia;Hypergly cemia;Microbiologic cultures;High CRP MNT Billing Type: Initial Assess/15 min 3 units SIGNATURE: Liv Mclean RD PATIENT NAME: Velia Bagley DATE: August 06, 2020 TIME: 2:30 PM PAGER: [phone] [facility] PLAN OF CAREon 08-06-2020 PLAN OF CARE HNO ID: [id number] Author: Sulma Green (Rn Perioperative) Service: Pharmacy Author Type: ? Type: Plan of Care Filed: 08/06/2020 5:08 PM Note Text: PHARMACY BEDSIDE DELIVERY SERVICE Patient Name: Velia Bagley The marked outpatient medications were Filled at: [facility] and delivered to the patient's bedside to [facility] Medication List START taking these medications dexAMETHasone 6 mg tablet Commonly known as: DECADRON Take 1 tablet by mouth daily with breakfast for 4 days. gabapentin 300 mg capsule Commonly known as: NEURONTIN Take 1 capsule by mouth every 8 hours. Replaces: gabapentin 800 mg tablet CHANGE how you take these medications topiramate 100 mg tablet Commonly known as: TOPAMAX Take 1 tablet by mouth twice daily. What changed: ? when to take this ? additional instructions CONTINUE taking these medications acetaminophen 325 mg tablet Commonly known as: TYLENOL AIMOVIG AUTOINJECTOR 140 mg/mL auto-injector Generic drug: erenumab-aooe amitriptyline 50 mg tablet Commonly known as: ELAVIL aspirin 81 mg chewable tablet atorvastatin 40 mg tablet Commonly known as: LIPITOR budesonide-formoterol 160-4.5 mcg/actuation inhaler Commonly known as: SYMBICORT CALCITONIN (SALMON) NASAL docusate sodium 100 mg capsule Commonly known as: COLACE Take 1 capsule by mouth twice daily as needed for Constipation. EFFEXOR XR 75 mg 24 hr capsule Generic drug: venlafaxine ER FASENRA 30 mg/mL injection Generic drug: benralizumab fluticasone 50 mcg/actuation nasal spray Commonly known as: FLONASE Use 2 Sprays in each nostril once daily. levalbuterol 1.25 mg/3 mL nebulizer solution Commonly known as: XOPENEX levalbuterol tartrate HFA 45 mcg/actuation inhaler montelukast 10 mg tablet Commonly known as: SINGULAIR omeprazole 20 mg capsule Commonly known as: PriLOSEC * albuterol 2.5 mg/3 mL nebulizer solution Commonly known as: PROVENTIL * PROAIR HFA INHALATION rizatriptan 10 mg tablet Commonly known as: MAXALT SUMAtriptan Succinate 6 mg/0.5 mL cartridge Commonly known as: IMITREX STAT tamsulosin 0.4 mg Commonly known as: FLOMAX Take 2 capsules by mouth at bedtime. tiotropium 18 mcg inhalation capsule Commonly known as: SPIRIVA verapamil SR 120 mg CR tablet Commonly known as: CALAN SR, ISOPTIN SR Take 1 tablet by mouth once daily. XYZAL 5 mg tablet Generic drug: levocetirizine * This list has 2 medication(s) that are the same as other medications prescribed for you. Read the directions carefully, and ask your doctor or other care provider to review them with you. You might also be taking other medications not listed above. If you have questions about any of your other medications, talk to the person who prescribed them or your Primary Care Provider. STOP taking these medications CeleBREX 200 mg capsule Generic drug: celecoxib cloNIDine HCl 0.1 mg tablet Commonly known as: CATAPRES gabapentin 800 mg tablet Commonly known as: NEURONTIN Replaced by: gabapentin 300 mg capsule losartan 100 mg tablet Commonly known as: COZAAR MILK OF MAGNESIA 400 mg/5 mL suspension Generic drug: magnesium hydroxide potassium chloride ER 20 mEq tablet Commonly known as: K-DUR, KLOR-CON spironolactone 25 mg tablet Commonly known as: ALDACTONE Sulma Green (Rn Perioperative) PAGER: [phone] OR [id number] August 06, 2020 5:07 PM [facility] PROGRESSon 08-06-2020 PROGRESS HNO ID: [id number] Author: Jelani Proctor Service: Infectious Disease Author Type: Physician Type: Progress Notes Filed: 08/06/2020 3:13 PM Note Text: INFECTIOUS DISEASE PROGRESS NOTE Patient Name: Velia Bagley INTERVAL HISTORY: ROS with patient/RN unless stated otherwise. o2 sat on room air is 89 % and drops to 87 5 with ambulation Patient Active Hospital Problem List: Hypotension (07/30/2020) Malnutrition of mild degree (HCC) (08/06/2020) ASSESSMENT: COVID-19 infection with orthopnea History of COPD Fevers Elevated inflammatory markers KRISTA RECOMMENDATIONS: S/p remdesivir Continue Decadron DVT prophylaxis Incentive spirometer every 4 hours Monitor CBC, CMP and electrolytes Monitor fever curve MEDICATIONS: reviewed. Current Facility-Administered Medications Medication Dose Route Frequency - acetaminophen 650 mg tab(s) (TYLENOL) 650 mg ORAL q 6 H PRN - gabapentin 300 mg cap(s) (NEURONTIN) 300 mg ORAL q 8 H - topiramate 100 mg tab(s) (TOPAMAX) 100 mg ORAL 2 TIMES DAILY 1200 AND 1700 - atorvastatin 40 mg tab(s) (LIPITOR) 40 mg ORAL DAILY - tamsulosin 0.8 mg cap(s) (FLOMAX) 0.8 mg ORAL AT BEDTIME - montelukast 10 mg tab(s) (SINGULAIR) 10 mg ORAL AT BEDTIME - venlafaxine ER 75 mg cap(s) (EFFEXOR XR) 75 mg ORAL DAILY - amitriptyline 50 mg tab(s) (ELAVIL) 50 mg ORAL AT BEDTIME - tiotropium bromide 2.5 mcg/actuation 2 Puff (SPIRIVA RESPIMAT) 2 Puff INHALATION DAILY - pantoprazole DR 20 mg tab(s) (PROTONIX) 20 mg ORAL DAILY (6 AM) - guaiFENesin 200 mg oral liquid (ROBITUSSIN) 200 mg ORAL q 4 H PRN - albuterol HFA 90 mcg/actuation 2 Puff (PROVENTIL HFA, VENTOLIN HFA) 2 Puff INHALATION q 6 H PRN - SUMAtriptan 50 mg tab(s) (IMITREX) 50 mg ORAL DIRECTED PRN - dexAMETHasone sodium phosphate (PF) 6 mg injection (DECADRON) 6 mg INTRAVENOUS q 24 H - enoxaparin 40 mg injection (LOVENOX) 40 mg SUBCUTANEOUS DAILY PHYSICAL EXAM: Vital signs: BP 135/81 Pulse 85 Temp 36.6 ?C (97.9 ?F) (Oral) Resp 20 Ht 177.8 cm (5' 10 ) Wt 86.5 kg (190 lb 11.2 oz) SpO2 92% BMI 27.36 kg/m? Temp (24hrs), Av.7 ?C (98.1 ?F), Min:36.6 ?C (97.9 ?F), Max:37 ?C (98.6 ?F) Shared COVID exam to preserve PPE and prevent exposure Labs: Recent Labs 08/06/20 0457 WBC 7.69 HB 10.0* HCT 31.4* PLT 212 NA 139 K 3.0* CHLOR 108* CO2 18* BUN 19 CREAT 0.83 Microbiology data: reviewed Imaging data: reviewed Jelani Proctor Pager:[phone] Date of service: 08/06/2020 Time of service: 3:07 PM This note is not final until Authenticated by responsible provider. [facility] PROGRESS HNO ID: [id number] Author: Jaxon Coleman MD Service: Hospital Medicine Author Type: Physician Type: Progress Notes Filed: 08/05/2020 11:04 PM Note Text: DEPARTMENT OF HOSPITAL MEDICINE PROGRESS NOTE SERVICE DATE: 08/05/2020 SERVICE TIME: 10:57 PM Hospital Medicine/Primary Attending: Jaxon Coleman MD NIGHT AND WEEKEND COVERAGE: After 7pm please page [phone] CHIEF COMPLAINT: SOB SUBJECTIVE: 60 yrs old male with HTN, COPD, admitted for cough and SOB, he is found COVID-19 pneumonia on Remdesivir completed today+Dexamethasone per ID. Overnight, Cough improved, coughing up sputum much easier, SOB also improved, PulseOX 88% RA minimal exertion, he is felling very weak OBJECTIVE: PHYSICAL EXAM: BP 130/73 Pulse 79 Temp (Src) 98.1 (Oral) Resp 18 Ht 5' 10 (1.78m) Wt 220 lb (99.8kg) SpO2 94% BMI 31.57 kg/(m2). O2 Therapy: Nasal Cannula, Liters: 2 General - AANDOx3, NAD,in respiratory distress HEENT: PERRLA, EOMI CV - RRR S1 S2, No M/R/G RESP - Diminished breath sounds, ronchi, rales, no wheezing or crackles ABD - soft, NT, ND +BS EXT - no gross joint deformity, no clubbing, cyanosis, edema NEURO - CN II-XII grossly intact, no focal deficits MEDICATIONS: Current Facility-Administered Medications Medication Dose Route Frequency - acetaminophen 650 mg tab(s) (TYLENOL) 650 mg ORAL q 6 H PRN - gabapentin 300 mg cap(s) (NEURONTIN) 300 mg ORAL q 8 H - topiramate 100 mg tab(s) (TOPAMAX) 100 mg ORAL 2 TIMES DAILY 1200 AND 1700 - atorvastatin 40 mg tab(s) (LIPITOR) 40 mg ORAL DAILY - tamsulosin 0.8 mg cap(s) (FLOMAX) 0.8 mg ORAL AT BEDTIME - montelukast 10 mg tab(s) (SINGULAIR) 10 mg ORAL AT BEDTIME - venlafaxine ER 75 mg cap(s) (EFFEXOR XR) 75 mg ORAL DAILY - amitriptyline 50 mg tab(s) (ELAVIL) 50 mg ORAL AT BEDTIME - tiotropium bromide 2.5 mcg/actuation 2 Puff (SPIRIVA RESPIMAT) 2 Puff INHALATION DAILY - pantoprazole DR 20 mg tab(s) (PROTONIX) 20 mg ORAL DAILY (6 AM) - guaiFENesin 200 mg oral liquid (ROBITUSSIN) 200 mg ORAL q 4 H PRN - albuterol HFA 90 mcg/actuation 2 Puff (PROVENTIL HFA, VENTOLIN HFA) 2 Puff INHALATION q 6 H PRN - SUMAtriptan 50 mg tab(s) (IMITREX) 50 mg ORAL DIRECTED PRN - dexAMETHasone sodium phosphate (PF) 6 mg injection (DECADRON) 6 mg INTRAVENOUS q 24 H - enoxaparin 40 mg injection (LOVENOX) 40 mg SUBCUTANEOUS DAILY DATA: Diagnostic tests reviewed for today's visit: CBC: No results for input(s): WBC, RBC, HB, HCT, PLT, MCV, MCH, MPV, RDW in the last 24 hours. Coags: No results for input(s): PT, INR, APTT in the last 24 hours. BMP: No results for input(s): NA, K, CHLOR, CO2, BUN, CREAT, GLUC in the last 24 hours. CMP: No results for input(s): NA, K, CHLOR, CO2, BUN, CREAT, GLUC, TPROT, CA, MG, ALBUMIN, TBILI, ALKPHOS, ALT, AST, ANION in the last 24 hours. Cardiac Enzymes: No results for input(s): CK, MB, CKMB, TROPT in the last 24 hours. Liver Function, Amylase, Lipase: No results for input(s): TPROT, ALB, ALT, AST, ALKPHOS, TBILI, AMYLASE, LIPASE, LACTATE in the last 24 hours. MG/PHOS: No results for input(s): MG, P in the last 24 hours. Renal Panel: No results for input(s): ALBUMIN, CREAT, BUN, GLUC, CA, P, CHLOR, K, CO2, NA in the last 24 hours. Heme: No results for input(s): RETICP, ABSRETIC, LD, BRIAN, FE, TIBC, TRANSFERSAT in the last 24 hours. No results found for: UALBCR Assessment/Plan COVID-19 pneumonia, with mild hypoxia, completed Remdesivir and continue Decadron per ID. Respiratory status improved, pulseOX 88% minimal exertion. ? KRISTA- prerenal. resolved. Renal US neg ? COPD without exacerbation, albuterol as needed. ? Non anion gap metabolic acidosis, improved. ? Elevated D dimer, troponin, and inflammatory markers due to COVID-19 infection. ? Hx of Migraine headache on home medications. ? Increased generalized weakness secondary to COVID-19 infection, PT/OT, he is open to SNF if qualified. ? VTE Prophylaxis: Lovenox 40mg Sub Q Daily ? Disposition: To be determined ? Plan of care discussed with: Provider, RN, Patient SIGNATURE: Jaxon Coleman MD PATIENT NAME: Velia Bagley DATE: August 05, 2020 TIME: 10:57 PM PAGER/CONTACT #: [facility] THERAPY NTon 08-06-2020 THERAPY NT HNO ID: [id number] Author: Arielle HarperOtr/Fiorella Anne Service: Occupational Therapy Author Type: Occupational Therapist Type: Therapy (PT/OT/Speech/Resp) Filed: 08/06/2020 1:40 PM Note Text: Occupational Therapy Evaluation SERVICE DATE: 08/06/2020 SERVICE TIME: 1305 to 1330 ROOM: [place] [id number] Recommended Discharge Disposition: Home OT Recommended Discharge Disposition Comments: with family assist Anticipated Discharge Needs: Physical Assist at Home Physical Assist at Home for: Meals;Laundry;Transporta tion;Cleaning OT 6 Clicks Score: 20 Precautions/Activity Restrictions: Fall Risk Current Hospital Course: SOB, COVID19+, PNA. on nasal cannula Reason for Hospital Admission: shortness of breath Relevant Past Medical History: R RONALD, TIA Response to Therapy Interventions: Good participation in activities, Low activity tolerance, Requires additional time to complete activities Continue skilled needs due to: Functional impairment Occupational Therapy Problem List: Impaired Self Care;Safety Deficits;Decreased Activity Tolerance Cognition/Communication Deficits Responsiveness: Alert Follows Commands: 3-step Commands Attention Deficits: Distractible Executive Function Deficits: Safety Awareness Safety Awareness Deficit: Minimal impairment Treatment Interventions: Education;Self Care / Home Management;Energy Conservation Training Home Environment Patient Lives With: Family (son) Assistance Available: methods time analyst (son works) Entry To Home: No Stairs Number Of Stairs To Bed/Bath: 0 Tub/Shower Type: tub shower Equipment Owned: Wheeled Walker;Shower Chair Prior Functional Level: Within Functional Limits Prior Functional Level Comments: Pt reports independent prior to admit, did not use walker for mobility. States he may stay at his daughter's at discharge due to maintenance being done at his place currently. (Details above are for his place, dtr has 3 TOPHER with rail). Patient Report: Awake, agreeable to OT session CURRENT FUNCTIONAL STATUS: Most recent performance Current Activities of Daily Living Assist Level Additional Information Feeding Independent Grooming Independent Bathing Upper Body Minimal Assistance Bathing Lower Body Minimal Assistance Dressing Upper Body Minimal Assistance Dressing Lower Body Minimal Assistance Toileting Minimal Assistance Instrumental Activities of Daily Living Assist Level Additional Information Meal/Beverage Prep Cleaning Laundry Medication Management with Strategies Functional Mobility Assist Level Additional Information Rolling Supine to Sit Supervision Sit to Supine Supervision Scooting Sit to Stand Contact Guard Assistance Stand to Sit Contact Guard Assistance Bed to Chair Toilet/Commode Shower Functional Mobility Contact Guard Assistance Blank quesada indicate activity not attempted Range of Motion: WFL Strength: WFL Vision Deficits: Wears corrective lenses Activity Tolerance: Sitting Activity Sitting Activity: ADL EOB Sitting Activity Tolerance (in minutes): 5 (easily fatigues with all activities) Learning/Educational Needs: Safety;Self Care;Functional Activities/Mobility Goals for Plan of Care: Patient /Caregiver Goals: Go Home;Care For Self Grooming with: Set Up (standing sinkside x8 min) Lower Body Bathing with: Modified Independent Lower Body Dressing with: Modified Independent Toilet Hygiene with: Modified Independent Toilet Transfer with: Independent Tolerate (minutes of functional activity): 20 Functional Activity with: Modified Independent Rehab Potential: Good Patient will be discontinued from Occupational Therapy when no further skilled needs are identified in this setting. PLAN: Treatment Frequency (times per week): 5 (1-5x/week) Current admission Plan of Care developed with: Patient TREATMENT INTERVENTIONS: Therapy Diagnosis: Reduced mobility-other;Decreased activities of daily living (ADL) Interventions Provided: Evaluation;Self Retirement Management (79104) $ Evaluation-Low (66281) Billed Units: 1 unit Self Retirement Management (11831) Treatment Minutes: 8 $ Self Retirement Management (04328) Billed Units: 1 unit Initiated education re: energy conservation, work simplification techniques and incorporating rest breaks into functional activities to maximize overall activity tolerance. Training AND education provided in: Activity adaption / compensatory strategies, Energy conservation, Role of Occupational Therapy, Positioning The following therapeutic skills were used: Activity dosing, Assessment of tolerance including vitals response to activity, Cues for sequencing/proper technique for activity Total Timed Code Treatment Minutes: 8 Total Treatment Time (minutes): 25 Please see discipline specific clinical documentation flowsheet for complete details for this therapy evaluation/treatment. SIGNATURE: YAEL Ly/Matt PATIENT NAME: Velia Bagley DATE: August 06, 2020 TIME: 1:39 PM [facility] THERAPY NT HNO ID: [id number] Author: Niall HarperPtVibha Willson PT Service: Physical Therapy Author Type: Physical Therapist Type: Therapy (PT/OT/Speech/Resp) Filed: 08/06/2020 10:42 AM Note Text: Physical Therapy Evaluation SERVICE DATE: 08/06/2020 SERVICE TIME: 3236 to 1029 ROOM: [id number] Recommended Discharge Disposition: Home PT Recommended Discharge Disposition Comments: with family assist. Home PT to address strength, activity tolerance, and gait stability deficits, and decrease reliance on wheeled walker for mobility. May benefit from bedside commode to limit exertion walking to/from bathroom. Anticipated Discharge Needs: Physical Assist at Home Physical Assist at Home for: Cleaning;Laundry;Meals;S tairs;Shopping;Transport ation Recommended Discharge Equipment: Commode-Bedside PT 6 Clicks Score: 20 Precautions/Activity Restrictions: Fall Risk Current Hospital Course: SOB, COVID19+, PNA. on nasal cannula Reason for Hospital Admission: shortness of breath Relevant Past Medical History: R RONALD, TIA Response to Therapy Interventions: Good participation in activities, Low activity tolerance Continue skilled needs due to: Functional mobility/skill impairments, Safety concerns, Continued monitoring of vital signs during mobility required Physical Therapy Problem List: Safety Deficits;Impaired Self Care;Decreased Activity Tolerance;Decreased Strength;Functional Mobility Impairment;Balance Impaired Treatment Interventions: Education;Strengthening; Functional Mobility Training;Balance Training;Neuromuscular Re-education Home Environment Patient Lives With: Family (son) Assistance Available: methods time analyst (son works) Entry To Home: No Stairs Number Of Stairs To Bed/Bath: 0 Tub/Shower Type: tub shower Equipment Owned: Wheeled Walker;Shower Chair Prior Functional Level: Within Functional Limits Prior Functional Level Comments: Pt reports independent prior to admit, did not use walker for mobility. States he may stay at his daughter's at discharge due to maintenance being done at his place currently. (Details above are for his place, dtr has 3 TOPHER with rail). Patient Report: Pt agreeable to PT, is very hoarse. States he coughed from 230am to 830am this morning CURRENT FUNCTIONAL STATUS: Most recent performance Current Functional Mobility Assist Level Additional Information Rolling Supine to Sit Stand By Assistance Sit to Supine Stand By Assistance Scooting Sit to Stand Contact Guard Assistance Stand to Sit Contact Guard Assistance Bed to Chair Toilet/Commode Gait Contact Guard Assistance;Additional Information Gait Device: Wheeled Walker Gait Distance (feet): 12 ft x2 slow gait, limited by fatigue, increased time to turn Stairs Curb Step Car Transfer Blank quesada indicate activity not attempted General Deviations/Observations: Tati decreased;Step length decreased Range of Motion: WFL Strength: Lower Extremity Comments Right Lower Extremity Strength Comments: 4+/5 Left Lower Extremity Strength Comments: 4+/5 Balance: Static Standing;Dynamic Standing Static Standing Balance: Fair Patient able to maintain balance with handhold support, may require occasional minimal assistance Dynamic Standing Balance: Fair Patient accepts minimal challenge, able to maintain balance while turning head/trunk Vital Signs Pre Assessment: Heart Rate, SpO2, O2 Equipment (supine at rest) Pre Heart Rate: 84 Pre SpO2: 93 Pre O2 Equipment: Nasal Cannula Pre Oxygen Requirement: 2 Intra Assessment 1: Heart Rate Intra 1, SpO2 Intra 1, Oxygen Equipment Intra 1 (sitting exercises) Intra Heart Rate 1: 102 Intra SpO2 1: 91 Intra O2 Equipment 1: Nasal Cannula Intra Oxygen Requirement 1: 2 Intra Assessment 2: Heart Rate Intra 2, SpO2 Intra 2, Oxygen Equipment Intra 2 (after walking in room) Intra Heart Rate 2: 110 Intra SpO2 2: 89 Intra O2 Equipment 2: Nasal Cannula Intra Oxygen Requirement 2: 2 Post Assessment: Heart Rate Post, SpO2 Post, Oxygen Equipment Post (sitting, 2 minutes after ambulation) Post Heart Rate: 99 Post SpO2: 92 Post O2 Equipment: Nasal Cannula Post Oxygen Requirement: 2 -HLM: 6: Walk 10 steps or more Learning/Educational Needs: Discharge Plan;Equipment;Functiona l Activities/Mobility;Plan of Care;Rehabilitation Techniques and Procedures;Respiratory Function;Safety Goals for Plan of Care: Patient /Caregiver Goals: Go Home Able to perform HEP with: Independent Transfer supine to/from sit with: Independent Transfer sit to/from stand with: Supervision Ambulate with: Supervision Distance: 20 ft x6 Device: Wheeled Walker Ambulate up and down curb step with: Stand By Assistance Device: Rail Rehab Potential: Good Patient will be discontinued from Physical Therapy when no further skilled needs are identified in this setting. PLAN: Treatment Frequency (times per week): 3 (1-3) Current admission Plan of Care developed with: Patient TREATMENT INTERVENTIONS: Therapy Diagnosis: Reduced mobility-other Interventions Provided: Evaluation;Therapeutic Activity (94134) $ Evaluation-Moderate (50084) Billed Units: 1 unit Therapeutic Activity (61573) Treatment Minutes: 10 $ Therapeutic Activity (20382) Billed Units: 1 unit Educated in expectations for persistent fatigue and endurance limitations with COVID 19, importance of balancing moderate activity with avoiding complete bedrest. Educated that feelings of fatigue can often last for weeks. Oriented to RPE scale and advised to stay below 5, ideally in 3-5 range when engaging in physical activity and performing HEP. Advised that exceeding this level of exertion and cause undue increases in fatigue. Practiced using this scale with sitting exercises and ambulation, for which he rated these activities 4/10 and 6/10 respectively. Monitored vitals throughout session and adjusted activity as needed based on physiologic response to activity and allowing appropriate recovery. Discussed discharge planning and techniques to promote safety at home. Discussed recommendation to use pulse ox to monitor SpO2 when exerting himself at home, pt already owns. Discussed normal limits of SpO2 with activity. Discussed option of using bedside commode to limit exertion walking to/from bathroom, and recommended having a family member guard/assist for first time on his daughter's steps. Training AND education provided in: Anatomy and impact on deficits, Assistive device use, Bed mobility, Benefits of in-hospital mobility, Discharge planning, Equipment, Expected functional level, Gait pattern, reduction of deviations, Exercise program, Disease specific education, Home safety, Role of Physical Therapy The following therapeutic skills were used: Activity dosing, Assessment of tolerance including vitals response to activity, Cues for sequencing/proper technique for activity, Cuing tactile, Cuing verbal, Movement facilitation Total Timed Code Treatment Minutes: 10 Total Treatment Time (minutes): 30 Please see discipline specific clinical documentation flowsheet for complete details for this therapy evaluation/treatment. SIGNATURE: Niall Willson PT PATIENT NAME: Velia Bagley DATE: August 06, 2020 TIME: 10:39 AM [facility] NURSING PROGon 08-05-2020 NURSING PROG HNO ID: [id number] Author: Elena (Rn) BULL Wilson Service: Nursing Author Type: Registered Nurse Type: Nursing Progress Note Filed: 08/05/2020 3:24 PM Note Text: Pt unable to tolerate walking more than 20 feet with walker due to weakness. Ambulatory pulse ox 88% on RA. Pt safely returned to chair and open to PT eval and rehab if necessary to rebuild strength. [facility] PROGRESSon 08-04-2020 PROGRESS HNO ID: [id number] Author: Jaxon Coleman MD Service: Hospital Medicine Author Type: Physician Type: Progress Notes Filed: 08/04/2020 9:53 PM Note Text: DEPARTMENT OF HOSPITAL MEDICINE PROGRESS NOTE SERVICE DATE: 08/04/2020 SERVICE TIME: 9:27 PM Hospital Medicine/Primary Attending: Jaxon Coleman MD NIGHT AND WEEKEND COVERAGE: After 7pm please page [phone] CHIEF COMPLAINT: Cough, SOB SUBJECTIVE: 60 yrs old male with HTN, COPD, admitted for cough and SOB, he is found COVID-19 pneumonia on Remdesivir+Dexamethasone per ID. Overnight, continue to have frequent cough, difficulty coughing up sputum, SOB , chest tightness, no fever, OBJECTIVE: PHYSICAL EXAM: BP 130/72 Pulse 77 Temp (Src) 99.3 (Oral) Resp 20 Ht 5' 10 (1.78m) Wt 220 lb (99.8kg) SpO2 92% BMI 31.57 kg/(m2). O2 Therapy: Room Air, Liters: 2 General - AANDOx3, NAD,in respiratory distress HEENT: PERRLA, EOMI CV - RRR S1 S2, No M/R/G RESP - Diminished breath sounds, ronchi, rales, no wheezing or crackles ABD - soft, NT, ND +BS EXT - no gross joint deformity, no clubbing, cyanosis, edema NEURO - CN II-XII grossly intact, no focal deficits MEDICATIONS: Current Facility-Administered Medications Medication Dose Route Frequency - acetaminophen 650 mg tab(s) (TYLENOL) 650 mg ORAL q 6 H PRN - gabapentin 300 mg cap(s) (NEURONTIN) 300 mg ORAL q 8 H - topiramate 100 mg tab(s) (TOPAMAX) 100 mg ORAL 2 TIMES DAILY 1200 AND 1700 - atorvastatin 40 mg tab(s) (LIPITOR) 40 mg ORAL DAILY - tamsulosin 0.8 mg cap(s) (FLOMAX) 0.8 mg ORAL AT BEDTIME - montelukast 10 mg tab(s) (SINGULAIR) 10 mg ORAL AT BEDTIME - venlafaxine ER 75 mg cap(s) (EFFEXOR XR) 75 mg ORAL DAILY - amitriptyline 50 mg tab(s) (ELAVIL) 50 mg ORAL AT BEDTIME - tiotropium bromide 2.5 mcg/actuation 2 Puff (SPIRIVA RESPIMAT) 2 Puff INHALATION DAILY - pantoprazole DR 20 mg tab(s) (PROTONIX) 20 mg ORAL DAILY (6 AM) - guaiFENesin 200 mg oral liquid (ROBITUSSIN) 200 mg ORAL q 4 H PRN - albuterol HFA 90 mcg/actuation 2 Puff (PROVENTIL HFA, VENTOLIN HFA) 2 Puff INHALATION q 6 H PRN - SUMAtriptan 50 mg tab(s) (IMITREX) 50 mg ORAL DIRECTED PRN - remdesivir 100 mg in NaCl 0.9% 250 mL 100 mg INTRAVENOUS q 24 HR And - sodium chloride 0.9 % (flush) 30 mL (BD POSIFLUSH) 30 mL INTRAVENOUS q 24 HR - dexAMETHasone sodium phosphate (PF) 6 mg injection (DECADRON) 6 mg INTRAVENOUS q 24 H - enoxaparin 40 mg injection (LOVENOX) 40 mg SUBCUTANEOUS DAILY DATA: Diagnostic tests reviewed for today's visit: CBC: No results for input(s): WBC, RBC, HB, HCT, PLT, MCV, MCH, MPV, RDW in the last 24 hours. Coags: No results for input(s): PT, INR, APTT in the last 24 hours. BMP: No results for input(s): NA, K, CHLOR, CO2, BUN, CREAT, GLUC in the last 24 hours. CMP: No results for input(s): NA, K, CHLOR, CO2, BUN, CREAT, GLUC, TPROT, CA, MG, ALBUMIN, TBILI, ALKPHOS, ALT, AST, ANION in the last 24 hours. Cardiac Enzymes: No results for input(s): CK, MB, CKMB, TROPT in the last 24 hours. Liver Function, Amylase, Lipase: No results for input(s): TPROT, ALB, ALT, AST, ALKPHOS, TBILI, AMYLASE, LIPASE, LACTATE in the last 24 hours. MG/PHOS: No results for input(s): MG, P in the last 24 hours. Renal Panel: No results for input(s): ALBUMIN, CREAT, BUN, GLUC, CA, P, CHLOR, K, CO2, NA in the last 24 hours. Heme: No results for input(s): RETICP, ABSRETIC, LD, BRIAN, FE, TIBC, TRANSFERSAT in the last 24 hours. No results found for: UALBCR Assessment/Plan COVID-19 pneumonia,with mild hypoxia, continue Remdesivir and Decadron per ID. KRISTA- prerenal. resolved. Renal US neg ? COPD without exacerbation, albuterol as needed. ? Non anion gap metabolic acidosis, improved. Elevated D dimer, troponin, and inflammatory markers due to COVID-19 infection. Hx of Migraine headache on home medications. ? VTE Prophylaxis: Lovenox 40mg Sub Q Daily Disposition: To be determined Plan of care discussed with: Provider, RN, Patient SIGNATURE: Jaxon Coleman MD PATIENT NAME: Velia Bagley DATE: August 04, 2020 TIME: 9:27 PM PAGER/CONTACT #: Normal [facility] CASE MANAGEMon 08-03-2020 CASE MANAGEM HNO ID: [id number] Author: Jd (Rn) BULL Huertas Service: Care Management Author Type: Registered Nurse Type: Care Mgt Progress Note Filed: 08/03/2020 1:54 PM Note Text: CARE MANAGEMENT PROGRESS NOTE SERVICE DATE: 08/03/2020 SERVICE TIME: 1:54 PM LOS: 4 days IMM Follow Up Copy Given: Yes Copy given to:: Patient Method: By Phone (Covid protocol) Needs Prior to Discharge: Desat Study;Oxygen Set-up;To Be Determined Chart reviewed. Pt is 91% on RA. Last dose of Remdesivir is 4/4. Will need ambulatory pulse ox prior to dc to see if he needs home oxygen. Will send qualifying note from nurse and poxygen prescription to [facility] if discharged over the weekend. The covering social services counselor will call [facility] rep Lindsay Faria [phone] to send her script and documentation if oxygen is needed. [facility] does not monitor [employer] on the weekend. They are able to deliver oxygen concentrator to his home in [place], [place] and could even deliver the portable tank to the bedside. The patient plans to return home at dc with family to transport when ready for dc. SIGNATURE: dJ Huertas RN PATIENT NAME: Velia Bagley DATE: August 03, 2020 TIME: 1:50 PM PAGER/CONTACT #: [phone] [facility] HEPATIC FUNCTION PNLon 08-03 Albumin [Mass/Vol] 3.4 g/dL Low 3.9-4.9 [facility] Comment on above: Order Comment: Speci men Type: BLOOD SPECIMEN Performed By: #### H FP #### [facility] CLIA [id number] [address] [place] [address] ALP [Catalytic activity/Vol] 86 U/L Normal 38-113 [facility] Comment on above: Order Comment: Speci men Type: BLOOD SPECIMEN Performed By: #### H FP #### [facility] CLIA [id number] [address] [place] [address] ALT With P-5'-P [Catalytic activity/Vol] 18 U/L Normal 10-54 [facility] Comment on above: Order Comment: Speci men Type: BLOOD SPECIMEN Performed By: #### H FP #### [facility] CLIA [id number] [address] [place] [address] AST With P-5'-P [Catalytic activity/Vol] 37 U/L Normal 14-40 [facility] Comment on above: Order Comment: Speci men Type: BLOOD SPECIMEN Performed By: #### H FP #### [facility] CLIA [id number] [address] [place] [address] Bilirubin [Mass/Vol] 0.2 mg/dL Normal 0.2-1.3 [facility] Comment on above: Order Comment: Speci men Type: BLOOD SPECIMEN Performed By: #### H FP #### [facility] CLIA [id number] [address] [place] [address] Bilirubin.conjugated [Mass/Vol] mg/dL Normal <0.2 [facility] Comment on above: Order Comment: Speci men Type: BLOOD SPECIMEN Performed By: #### H FP #### [facility] CLIA [id number] [address] [place] [address] Protein [Mass/Vol] 5.6 g/dL Low 6.3-8.0 [facility] Comment on above: Order Comment: Speci men Type: BLOOD SPECIMEN Performed By: #### H FP #### [facility] CLIA [id number] [address] [place] [address] PROGRESSon 08-03-2020 PROGRESS HNO ID: [id number] Author: Danny Navas Service: Infectious Disease Author Type: Physician Type: Progress Notes Filed: 08/03/2020 8:54 PM Note Text: INFECTIOUS DISEASE PROGRESS NOTE Patient Name: Velia Bagley INTERVAL HISTORY: Review of system/ RN/afebrile, continues to desat on lying down, normal LFTs. Continues to be leukopenic 2.15>1.89 Patient Active Hospital Problem List: Hypotension (07/30/2020) ASSESSMENT: COVID-19 infection with orthopnea History of COPD Fevers Elevated inflammatory markers KRISTA RECOMMENDATIONS: Continue Remdesivir, monitor creatinine LFTs while on it Continue Decadron DVT prophylaxis Incentive spirometer every 4 hours Monitor CBC, CMP and electrolytes Monitor fever curve ID team will follow MEDICATIONS: reviewed. Current Facility-Administered Medications Medication Dose Route Frequency - acetaminophen 650 mg tab(s) (TYLENOL) 650 mg ORAL q 6 H PRN - gabapentin 300 mg cap(s) (NEURONTIN) 300 mg ORAL q 8 H - topiramate 100 mg tab(s) (TOPAMAX) 100 mg ORAL 2 TIMES DAILY 1200 AND 1700 - atorvastatin 40 mg tab(s) (LIPITOR) 40 mg ORAL DAILY - tamsulosin 0.8 mg cap(s) (FLOMAX) 0.8 mg ORAL AT BEDTIME - verapamil 120 mg tab(s) (CALAN, ISOPTIN) 120 mg ORAL DAILY - montelukast 10 mg tab(s) (SINGULAIR) 10 mg ORAL AT BEDTIME - venlafaxine ER 75 mg cap(s) (EFFEXOR XR) 75 mg ORAL DAILY - amitriptyline 50 mg tab(s) (ELAVIL) 50 mg ORAL AT BEDTIME - tiotropium bromide 2.5 mcg/actuation 2 Puff (SPIRIVA RESPIMAT) 2 Puff INHALATION DAILY - pantoprazole DR 20 mg tab(s) (PROTONIX) 20 mg ORAL DAILY (6 AM) - guaiFENesin 200 mg oral liquid (ROBITUSSIN) 200 mg ORAL q 4 H PRN - albuterol HFA 90 mcg/actuation 2 Puff (PROVENTIL HFA, VENTOLIN HFA) 2 Puff INHALATION q 6 H PRN - SUMAtriptan 50 mg tab(s) (IMITREX) 50 mg ORAL DIRECTED PRN - remdesivir 100 mg in NaCl 0.9% 250 mL 100 mg INTRAVENOUS q 24 HR And - sodium chloride 0.9 % (flush) 30 mL (BD POSIFLUSH) 30 mL INTRAVENOUS q 24 HR - dexAMETHasone sodium phosphate (PF) 6 mg injection (DECADRON) 6 mg INTRAVENOUS q 24 H - enoxaparin 40 mg injection (LOVENOX) 40 mg SUBCUTANEOUS DAILY PHYSICAL EXAM: Vital signs: BP 116/71 Pulse 97 Temp 36.7 ?C (98.1 ?F) (Oral) Resp 20 Ht 177.8 cm (5' 10 ) Wt 99.8 kg (220 lb) SpO2 93% BMI 31.57 kg/m? Temp (24hrs), Av.1 ?C (98.7 ?F), Min:36.7 ?C (98.1 ?F), Max:37.4 ?C (99.3 ?F) Shared had physical exam, please refer to hospitalist note for detail physical exam Labs: Recent Labs 08/03/20 0526 08/02/20 0858 08/02/20 0524 08/02/20 0308 08/01/20 1738 08/01/20 0234 08/01/20 0233 WBC -- -- -- 1.89* -- -- 2.15* HB -- -- -- 9.7* -- -- 9.4* PLT -- -- -- 138* -- -- 118* INR 1.1 -- 1.1 -- 1.1 -- -- NA -- -- 138 -- -- 135* -- K -- -- 3.7 -- -- 3.5* -- CO2 -- -- 17* -- -- 15* -- BUN -- -- 11 -- -- 11 -- CREAT -- -- 1.09 -- -- 1.27* -- AST 37 -- 35 -- 35 -- -- ALT 18 -- 18 -- 17 -- -- TBILI 0.2 -- 0.2 -- 0.2 -- -- ALKPHOS 86 -- 88 -- 87 -- -- CRP -- 6.9* -- -- -- -- -- Microbiology data: reviewed Imaging data: reviewed Danny Navas MD note Pager: Date of service: 08/03/2020 Time of service: 5:31 PM Normal [facility] PROGRESS HNO ID: [id number] Author: Neymar Clay Service: Hospital Medicine Author Type: Physician Type: Progress Notes Filed: 08/03/2020 12:51 PM Note Text: INPATIENT PROGRESS NOTE CHIEF COMPLAINT: Shortness of breath, cough INTERVAL HPI: No new complaints per patient still has cough but no chest pain or shortness of breath. Remains afebrile. PHYSICAL EXAM: BP 135/72 Pulse 101 Temp (Src) 98.1 (Oral) Resp 24 Ht 5' 10 (1.78m) Wt 220 lb (99.8kg) SpO2 91% BMI 31.57 kg/(m2). O2 Therapy: Room Air GENERAL: Alert, no distress, cooperative LUNGS: No wheezing noted today CARDIAC: Normal S1 and S2; no rubs, murmurs, or gallops ABDOMEN: Abdomen soft, non-tender, BS normal, No masses or organomegaly EXTREMITIES: No edema CBC, Coags, BMP, Mg, Phos Recent Labs 08/03/2052508/02/2052308/02/20 0308 08/01/20 1738 08/01/20 0234 08/01/20 0233 WBC -- -- 1.89* -- -- 2.15* HB -- -- 9.7* -- -- 9.4* HCT -- -- 30.1* -- -- 29.7* PLT -- -- 138* -- -- 118* INR 1.1 1.1 -- 1.1 -- -- NA -- 138 -- -- 135* -- K -- 3.7 -- -- 3.5* -- CHLOR -- 110* -- -- 107* -- CO2 -- 17* -- -- 15* -- BUN -- 11 -- -- 11 -- CREAT -- 1.09 -- -- 1.27* -- GLUC -- 118* -- -- 88 -- CA -- 7.8* -- -- 7.7* -- DATA: Diagnostic tests reviewed for today's visit: CBC, Coags, BMP, Mg, Phos Recent Labs 08/03/2052508/02/2052308/02/20 0308 08/01/20 1738 08/01/20 0234 08/01/20 0233 WBC -- -- 1.89* -- -- 2.15* HB -- -- 9.7* -- -- 9.4* HCT -- -- 30.1* -- -- 29.7* PLT -- -- 138* -- -- 118* INR 1.1 1.1 -- 1.1 -- -- NA -- 138 -- -- 135* -- K -- 3.7 -- -- 3.5* -- CHLOR -- 110* -- -- 107* -- CO2 -- 17* -- -- 15* -- BUN -- 11 -- -- 11 -- CREAT -- 1.09 -- -- 1.27* -- GLUC -- 118* -- -- 88 -- CA -- 7.8* -- -- 7.7* -- Assessment/Plan ? # KRISTA- prerenal. Improving. Baseline cr <1.Renal US neg ? # COVID 19 PNA- Slightly hypoxic at 92-93% on RA. Monitor. Started Remdesivir and Decadron. On 08/01. ID following .fevers improved. ? # lymphopenia- from COVID 19. Monitor ? # AG metabolic acidosis- suspect from KRISTA. Now resolved ? # elevated troponin- seems chronic. No active chest pain ? # COPD- C/w bronchodilators. ? Plan Home at discharge when finishes remdesivir course SIGNATURE: Neymar Clay MD PATIENT NAME: Velia Bagley DATE: August 03, 2020 TIME: 12:49 PM PAGER: Normal [facility] PT Pnl PPPon 08-03-2020 INR Coag (PPP) [Relative time] 1.1 {INR} Normal 0.9-1.3 [facility] Comment on above: Order Comment: Speci men Type: BLOOD SPECIMEN Result Comment: Danielle min K Antagonist (VKA) Therapeutic Range: INR 2 to 3 (Target INR of 2.5) Note: For patients treated with VKA drugs, such as warfarin, the [employer] 2012 Guideline recommends a therapeutic INR range of 2 to 3 (target INR of 2.5). This recommendation includes high-risk patients with antiphospholipid syndrome with previous arterial or venous thromboembolism, current-generation mechanical or bioprosthetic aortic heart valve replacement. Note: Patients with mechanical aortic valve replacement and additional risk factors for thromboembolic events (atrial fibrillation, previous thromboembolism, LV dysfunction, hypercoagulable conditions) or an older generation mechanical AVR (i.e., ball in-Cage) or any mechanical MVR should have a INR therapeutic range of 2.5 to 3.5 (target INR of 3). Kevin GH, et al. Chest 2012, 141:7S-47S Jimbo RA, et al. [facility] 2017, 70: 252-289 Performed By: #### 3 4528-0 #### [facility] CLIA [id number] [address] [place] [address] PT Coag (PPP) [Time] 11.1 s Normal 9.7-13.0 [facility] Comment on above: Order Comment: Speci men Type: BLOOD SPECIMEN Performed By: #### 3 4528-0 #### [facility] CLIA [id number] [address] [place] [address] Bas Metab 2000 Pnl SerPlon 0 08-02-2020 Anion gap [Moles/Vol] 11 mmol/L Normal 9-18 [facility] Comment on above: Order Comment: Speci men Type: URINE SPECIMEN Performed By: #### 2 4356-8 #### [facility] CLIA [id number] [address] [place] [address] Calcium [Mass/Vol] 7.8 mg/dL Low 8.5-10.2 [facility] Comment on above: Order Comment: Speci men Type: URINE SPECIMEN Performed By: #### 2 4356-8 #### [facility] CLIA [id number] [address] [place] [address] Chloride [Moles/Vol] 110 mmol/L High 97-105 [facility] Comment on above: Order Comment: Speci men Type: URINE SPECIMEN Performed By: #### 2 4356-8 #### [facility] CLIA [id number] [address] [place] [address] CO2 [Moles/Vol] 17 mmol/L Low 22-30 [facility] Comment on above: Order Comment: Speci men Type: URINE SPECIMEN Performed By: #### 2 4356-8 #### [facility] CLIA [id number] [address] [place] [address] Creatinine [Mass/Vol] 1.09 mg/dL Normal 0.73-1.22 [facility] Comment on above: Order Comment: Speci men Type: URINE SPECIMEN Performed By: #### 2 4356-8 #### [facility] CLIA [id number] [address] [place] [address] GFR/1.73 sq M.predicted MDRD (S/P/Bld) [Vol rate/Area] mL/min/{1.73_m2} Normal [facility] Comment on above: Order Comment: Speci men Type: URINE SPECIMEN Result Comment: >60 eGFR (Estimated GFR) Units of measure: mL/min/1.73 meters squared eGFR is derived from the reexpressed MDRD Study equation using the following parameters: serum creatinine, age, gender and race. The creatinine assay has been calibrated to be traceable to IDMS. An eGFR <60 mL/min/1.73m2 for >3 months is consistent with chronic kidney disease. Refer to KDOQI guidelines for clinical interpretation. In patients with unstable renal function, e.g. those with acute kidney injury, the eGFR may not accurately reflect actual GFR. Performed By: #### 2 4356-8 #### [facility] CLIA [id number] [address] [place] [address] Glucose [Mass/Vol] 118 mg/dL High 74-99 [facility] Comment on above: Order Comment: Speci men Type: URINE SPECIMEN Result Comment: The [employer] (ADA) provides guidance for cutoff values for fasting glucose and random glucose. The ADA defines fasting as no caloric intake for at least 8 hours. Fasting plasma glucose results between 100 to 125 mg/dL indicate increased risk for diabetes (prediabetes). Fasting plasma glucose results greater than or equal to 126 mg/dL meet the criteria for diagnosis of diabetes. In the absence of unequivocal hyperglycemia, results should be confirmed by repeat testing. In a patient with classic symptoms of hyperglycemia or hyperglycemic crisis, random plasma glucose results greater than or equal to 200 mg/dL meet the criteria for diagnosis of diabetes. Reference: Standards of Medical Care in Diabetes 2016, [employer]. Diabetes Care. 2016.39(Suppl 1). Performed By: #### 2 4356-8 #### [facility] CLIA [id number] [address] [place] [address] Potassium [Moles/Vol] 3.7 mmol/L Normal 3.7-5.1 [facility] Comment on above: Order Comment: Speci men Type: URINE SPECIMEN Performed By: #### 2 4356-8 #### [facility] CLIA [id number] [address] [place] [address] Sodium [Moles/Vol] 138 mmol/L Normal 136-144 [facility] Comment on above: Order Comment: Speci men Type: URINE SPECIMEN Performed By: #### 2 4356-8 #### [facility] CLIA [id number] [address] [place] [address] Urea nitrogen [Mass/Vol] 11 mg/dL Normal 9-24 [facility] Comment on above: Order Comment: Speci men Type: URINE SPECIMEN Performed By: #### 2 4356-8 #### [facility] CLIA [id number] [address] [place] [address] CBC Pnl Bld Autoon 1 Erythrocyte distribution width (RBC) [Ratio] 16.7 % High 11.5-15.0 [facility] Comment on above: Order Comment: Speci men Type: BLOOD SPECIMEN Performed By: #### 3 4528-0 #### [facility] CLIA [id number] [address] [place] [address] Hematocrit (Bld) [Volume fraction] 30.1 % Low 39.0-51.0 [facility] Comment on above: Order Comment: Speci men Type: BLOOD SPECIMEN Performed By: #### 3 4528-0 #### [facility] CLIA [id number] [address] [place] [address] Hemoglobin (Bld) [Mass/Vol] 9.7 g/dL Low 13.0-17.0 [facility] Comment on above: Order Comment: Speci men Type: BLOOD SPECIMEN Performed By: #### 3 4528-0 #### [facility] CLIA [id number] [address] [place] [address] MCH (RBC) [Entitic mass] 26.7 pg Normal 26.0-34.0 [facility] Comment on above: Order Comment: Speci men Type: BLOOD SPECIMEN Performed By: #### 3 4528-0 #### [facility] CLIA [id number] [address] [place] [address] MCHC (RBC) [Mass/Vol] 32.2 g/dL Normal 30.5-36.0 [facility] Comment on above: Order Comment: Speci men Type: BLOOD SPECIMEN Performed By: #### 3 4528-0 #### [facility] CLIA [id number] [address] [place] [address] MCV (RBC) [Entitic vol] 82.9 fL Normal 80.0-100.0 [facility] Comment on above: Order Comment: Speci men Type: BLOOD SPECIMEN Performed By: #### 3 4528-0 #### [facility] CLIA [id number] [address] [place] [address] Nucleated RBC (Bld) [#/Vol] 10*3/uL Normal <0.01 [facility] Comment on above: Order Comment: Speci men Type: BLOOD SPECIMEN Performed By: #### 3 4528-0 #### [facility] CLIA [id number] [address] [place] [address] Platelet mean volume (Bld) [Entitic vol] 11.0 fL Normal 9.0-12.7 [facility] Comment on above: Order Comment: Speci men Type: BLOOD SPECIMEN Performed By: #### 3 4528-0 #### [facility] CLIA [id number] [address] [place] [address] Platelets (Bld) [#/Vol] 138 10*3/uL Low 150-400 [facility] Comment on above: Order Comment: Speci men Type: BLOOD SPECIMEN Performed By: #### 3 4528-0 #### [facility] CLIA [id number] [address] [place] [address] RBC (Bld) [#/Vol] 3.63 10*6/uL Low 4.20-6.00 [facility] Comment on above: Order Comment: Speci men Type: BLOOD SPECIMEN Performed By: #### 3 4528-0 #### [facility] CLIA [id number] [address] [place] [address] WBC (Bld) [#/Vol] 1.89 10*3/uL Low 3.70-11.00 [facility] Comment on above: Order Comment: Speci men Type: BLOOD SPECIMEN Performed By: #### 3 4528-0 #### [facility] CLIA [id number] [address] [place] [address] CRP SerPl-ncon 08-02-2020 CRP [Mass/Vol] 6.9 mg/dL High <0.9 [facility] Comment on above: Order Comment: Speci men Type: URINE SPECIMEN Performed By: #### 2 4356-8 #### [facility] CLIA [id number] [address] [place] [address] D dimer FEU PPP-mCncon 08-02 D DIMER AGE-RELATED CUTOFF 590 ng/mL FEU Normal [facility] Comment on above: Order Comment: Speci men Type: URINE SPECIMEN Performed By: #### 2 4356-8 #### [facility] CLIA [id number] [address] [place] [address] Fibrin D-dimer FEU (PPP) [Mass/Vol] 500 ng/mL FEU High <500 [facility] Comment on above: Order Comment: Speci men Type: URINE SPECIMEN Performed By: #### 2 4356-8 #### [facility] CLIA [id number] [address] [place] [address] HEPATIC FUNCTION PNLon 08-02 Albumin [Mass/Vol] 3.3 g/dL Low 3.9-4.9 [facility] Comment on above: Order Comment: Speci men Type: URINE SPECIMEN Performed By: #### 2 4356-8 #### [facility] CLIA [id number] [address] [place] [address] ALP [Catalytic activity/Vol] 88 U/L Normal 38-113 [facility] Comment on above: Order Comment: Speci men Type: URINE SPECIMEN Performed By: #### 2 4356-8 #### [facility] CLIA [id number] [address] [place] [address] ALT With P-5'-P [Catalytic activity/Vol] 18 U/L Normal 10-54 [facility] Comment on above: Order Comment: Speci men Type: URINE SPECIMEN Performed By: #### 2 4356-8 #### [facility] CLIA [id number] [address] [place] [address] AST With P-5'-P [Catalytic activity/Vol] 35 U/L Normal 14-40 [facility] Comment on above: Order Comment: Speci men Type: URINE SPECIMEN Performed By: #### 2 4356-8 #### [facility] CLIA [id number] [address] [place] [address] Bilirubin [Mass/Vol] 0.2 mg/dL Normal 0.2-1.3 [facility] Comment on above: Order Comment: Speci men Type: URINE SPECIMEN Performed By: #### 2 4356-8 #### [facility] CLIA [id number] [address] [place] [address] Bilirubin.conjugated [Mass/Vol] mg/dL Normal <0.2 [facility] Comment on above: Order Comment: Speci men Type: URINE SPECIMEN Performed By: #### 2 4356-8 #### [facility] CLIA [id number] [address] [place] [address] Protein [Mass/Vol] 5.4 g/dL Low 6.3-8.0 [facility] Comment on above: Order Comment: Speci men Type: URINE SPECIMEN Performed By: #### 2 4356-8 #### [facility] CLIA [id number] [address] [place] [address] PROCALCITONIN (LAB)on 2020 Procalcitonin [Mass/Vol] 0.13 ng/mL High <0.09 [facility] Comment on above: Order Comment: Speci men Type: URINE SPECIMEN Result Comment: For a guided interpretation of test results, please visit the Change in Procalcitonin Calculator, [email or web address] Performed By: #### 2 4356-8 #### [facility] CLIA [id number] [address] [place] [address] PROGRESSon 08-02-2020 PROGRESS HNO ID: [id number] Author: Neymar Clay Service: Hospital Medicine Author Type: Physician Type: Progress Notes Filed: 08/02/2020 3:57 PM Note Text: INPATIENT PROGRESS NOTE CHIEF COMPLAINT: SOB INTERVAL HPI: denies any new complaints. Feels ok. c/o lack of appetite no CP/fever/chills PHYSICAL EXAM: BP 111/68 Pulse 91 Temp (Src) 99.1 (Oral) Resp 22 Ht 5' 10 (1.78m) Wt 220 lb (99.8kg) SpO2 93% BMI 31.57 kg/(m2). O2 Therapy: Room Air, Liters: 2 GENERAL: Alert, no distress, cooperative LUNGS: decreased wheezing carmen CARDIAC: Normal S1 and S2; no rubs, murmurs, or gallops ABDOMEN: Abdomen soft, non-tender, BS normal, No masses or organomegaly EXTREMITIES: no edema NEURO:, Cranial nerves II-XII intact DATA: Diagnostic tests reviewed for today's visit: CBC, Coags, BMP, Mg, Phos Recent Labs 08/02/20 0524 08/02/20 0308 08/01/20 1738 08/01/20 0234 08/01/20 0233 07/31/20 0551 WBC -- 1.89* -- -- 2.15* 4.18 HB -- 9.7* -- -- 9.4* 10.3* HCT -- 30.1* -- -- 29.7* 32.7* PLT -- 138* -- -- 118* 127* INR 1.1 -- 1.1 -- -- -- NA 138 -- -- 135* -- 137 K 3.7 -- -- 3.5* -- 3.7 CHLOR 110* -- -- 107* -- 110* CO2 17* -- -- 15* -- 16* BUN 11 -- -- 11 -- 16 CREAT 1.09 -- -- 1.27* -- 1.50* GLUC 118* -- -- 88 -- 96 CA 7.8* -- -- 7.7* -- 7.7* Assessment/Plan ? # KRISTA- prerenal. Improving. Baseline cr <1.Renal US neg # COVID 19 PNA- Slightly hypoxic at 92-93% on RA. Monitor. Started Remdesivir and Decadron. On 08/01. ID following .fevers improved # lymphopenia- from COVID 19. Monitor # AG metabolic acidosis- suspect from KRISTA. Now resolved # elevated troponin- seems chronic. No active chest pain ? # COPD- C/w bronchodilators. SIGNATURE: Neymar Clay MD PATIENT NAME: Velia Bagley DATE: August 02, 2020 TIME: 3:54 PM PAGER: Penny [facility] PROGRESS HNO ID: [id number] Author: Monika Virgen Service: Infectious Disease Author Type: Physician Type: Progress Notes Filed: 08/02/2020 10:31 AM Note Text: INFECTIOUS DISEASE PROGRESS NOTE Patient Name: Velia aBgley Date: 08/02/2020 ASSESSMENT: COVID-19 infection with hypoxia reports symptom onset 328 COPD Fevers Elevated inflammatory markers Acute kidney injury resolved PLAN: Continue remdesivir, monitor creatinine and LFTs on it Continue dexamethasone Will discontinue antibiotics as low suspicion for superimposed bacterial pneumonia continue to trend inflammatory markers and D-dimer every 48 hours DVT prophylaxis Give incentive spirometer INTERVAL HISTORY: ROS done with pt/RN and negative unless stated. T-max of 38.5, feels better. Was on 2 L nasal cannula currently saturating 93% on room air. Denies a productive cough. CRP 6.9, procalcitonin 0.13, worsening leukopenia, D-dimer 500. Chest x-ray yesterday without acute process MEDICATIONS: reviewed. Current Facility-Administered Medications Medication Dose Route Frequency - acetaminophen 650 mg tab(s) (TYLENOL) 650 mg ORAL q 6 H PRN - gabapentin 300 mg cap(s) (NEURONTIN) 300 mg ORAL q 8 H - topiramate 100 mg tab(s) (TOPAMAX) 100 mg ORAL 2 TIMES DAILY 1200 AND 1700 - atorvastatin 40 mg tab(s) (LIPITOR) 40 mg ORAL DAILY - tamsulosin 0.8 mg cap(s) (FLOMAX) 0.8 mg ORAL AT BEDTIME - verapamil 120 mg tab(s) (CALAN, ISOPTIN) 120 mg ORAL DAILY - montelukast 10 mg tab(s) (SINGULAIR) 10 mg ORAL AT BEDTIME - venlafaxine ER 75 mg cap(s) (EFFEXOR XR) 75 mg ORAL DAILY - amitriptyline 50 mg tab(s) (ELAVIL) 50 mg ORAL AT BEDTIME - enoxaparin 30 mg injection (LOVENOX) 30 mg SUBCUTANEOUS DAILY - tiotropium bromide 2.5 mcg/actuation 2 Puff (SPIRIVA RESPIMAT) 2 Puff INHALATION DAILY - pantoprazole DR 20 mg tab(s) (PROTONIX) 20 mg ORAL DAILY (6 AM) - guaiFENesin 200 mg oral liquid (ROBITUSSIN) 200 mg ORAL q 4 H PRN - albuterol HFA 90 mcg/actuation 2 Puff (PROVENTIL HFA, VENTOLIN HFA) 2 Puff INHALATION q 6 H PRN - SUMAtriptan 50 mg tab(s) (IMITREX) 50 mg ORAL DIRECTED PRN - remdesivir 100 mg in NaCl 0.9% 250 mL 100 mg INTRAVENOUS q 24 HR And - sodium chloride 0.9 % (flush) 30 mL (BD POSIFLUSH) 30 mL INTRAVENOUS q 24 HR - dexAMETHasone sodium phosphate (PF) 6 mg injection (DECADRON) 6 mg INTRAVENOUS q 24 H PHYSICAL EXAM: Vital signs: BP 115/65 Pulse 86 Temp 37.3 ?C (99.1 ?F) (Oral) Resp 24 Ht 177.8 cm (5' 10 ) Wt 99.8 kg (220 lb) SpO2 93% BMI 31.57 kg/m? Temp (24hrs), Av.3 ?C (99.2 ?F), Min:36.8 ?C (98.2 ?F), Max:38.5 ?C (101.3 ?F) General: alert, oriented, NAD Lungs: bilaterally clear to auscultation Heart: regular rate and rhythm Abdomen: soft, non tender, non distended, BS+ Extremities: no swollen joints Skin: no rash IV sites - wnl Lab data: reviewed Recent Labs 08/02/20 0858 08/02/20 0524 08/02/20 0308 08/01/20 1738 08/01/20 0234 08/01/20 0233 07/31/20 0551 WBC -- -- 1.89* -- -- 2.15* 4.18 HB -- -- 9.7* -- -- 9.4* 10.3* PLT -- -- 138* -- -- 118* 127* INR -- 1.1 -- 1.1 -- -- -- NA -- 138 -- -- 135* -- 137 K -- 3.7 -- -- 3.5* -- 3.7 CO2 -- 17* -- -- 15* -- 16* BUN -- 11 -- -- 11 -- 16 CREAT -- 1.09 -- -- 1.27* -- 1.50* AST -- 35 -- 35 -- -- -- ALT -- 18 -- 17 -- -- -- TBILI -- 0.2 -- 0.2 -- -- -- ALKPHOS -- 88 -- 87 -- -- -- CRP 6.9* -- -- -- -- -- -- Microbiology data: reviewed Imaging data: reviewed Monika Virgen MD Normal [facility] PT Pnl PPPon 08-02-2020 INR Coag (PPP) [Relative time] 1.1 {INR} Normal 0.9-1.3 [facility] Comment on above: Order Comment: Speci men Type: BLOOD SPECIMEN Result Comment: Danielle min K Antagonist (VKA) Therapeutic Range: INR 2 to 3 (Target INR of 2.5) Note: For patients treated with VKA drugs, such as warfarin, the [employer] 2012 Guideline recommends a therapeutic INR range of 2 to 3 (target INR of 2.5). This recommendation includes high-risk patients with antiphospholipid syndrome with previous arterial or venous thromboembolism, current-generation mechanical or bioprosthetic aortic heart valve replacement. Note: Patients with mechanical aortic valve replacement and additional risk factors for thromboembolic events (atrial fibrillation, previous thromboembolism, LV dysfunction, hypercoagulable conditions) or an older generation mechanical AVR (i.e., ball in-Cage) or any mechanical MVR should have a INR therapeutic range of 2.5 to 3.5 (target INR of 3). Kevin MCCORMICK, et al. Chest 2012, 141:7S-47S Jimbo RA, et al. [facility] 2017, 70: 252-289 Performed By: #### 3 4528-0 #### [facility] CLIA [id number] [address] [place] [address] PT Coag (PPP) [Time] 11.1 s Normal 9.7-13.0 [facility] Comment on above: Order Comment: Speci men Type: BLOOD SPECIMEN Performed By: #### 3 4528-0 #### [facility] CLIA [id number] [address] [place] [address] ALLIED HEALTHon 08-01-2020 ALLIED HEALTH HNO ID: [id number] Author: Luis (Rt) Rosaura Puri Service: Radiology Author Type: Carcass Splitter Type: Allied Health Filed: 08/01/2020 9:06 PM Note Text: Radiology Service Progress Note PATIENT NAME: Velia Bagley DATE OF SERVICE: August 01, 2020 TIME: 9:05 PM PATIENT IDENTITY VERIFICATION COMPLETED USING TWO (2) IDENTIFIERS: Name and Date of confirmed by patient verbally. FALL SCREENING: Has the patient had 2 falls in the last year or 1 fall with injury or currently using an Ambulatory Assistive Device (Walker, Cane, Wheelchair, Crutches, etc.)? Inpatient: Screened on floor PATIENT GENDER DATA: Male PATIENT RELEVANT IMPLANT DATA REVIEWED: Not Applicable RADIOLOGY DEPARTMENT: General X-ray: Exam(s) Completed: Chest X-Ray PERIPHERAL IV DATA: Not applicable SIGNED BY: RT Debra(R) August 01, 2020 9:05 PM Normal [facility] Bacteria Bld Culton 08-02-19 21 Bacteria identified Cx Nom (Bld) CULTURE, BLOOD: No growth 5 days Normal [facility] Comment on above: Performed By: #### 6 00-7 ####[facility] [id number] [place] [address] Bacteria identified Cx Nom (Bld) CULTURE, BLOOD: No growth 5 days Normal [facility] Comment on above: Performed By: #### 6 00-7 ####[facility] [id number] [place] [address] Bas Metab 2000 Pnl SerPlon 0 08-01-2020 Anion gap [Moles/Vol] 13 mmol/L Normal 9-18 [facility] Comment on above: Order Comment: Speci men Type: BLOOD SPECIMEN Performed By: #### 2 4321-2 ####[facility] [id number] [place] [address] Calcium [Mass/Vol] 7.7 mg/dL Low 8.5-10.2 [facility] Comment on above: Order Comment: Speci men Type: BLOOD SPECIMEN Performed By: #### 2 4321-2 ####[facility] [id number] [place] [address] Chloride [Moles/Vol] 107 mmol/L High 97-105 [facility] Comment on above: Order Comment: Speci men Type: BLOOD SPECIMEN Performed By: #### 2 4321-2 ####[facility] [id number] [place] [address] CO2 [Moles/Vol] 15 mmol/L Low 22-30 [facility] Comment on above: Order Comment: Speci men Type: BLOOD SPECIMEN Performed By: #### 2 4321-2 ####[facility] [id number] [place] [address] Creatinine [Mass/Vol] 1.27 mg/dL High 0.73-1.22 [facility] Comment on above: Order Comment: Speci men Type: BLOOD SPECIMEN Performed By: #### 2 4321-2 ####[facility] [id number] [place] [address] GFR/1.73 sq M.predicted MDRD (S/P/Bld) [Vol rate/Area] mL/min/{1.73_m2} Normal [facility] Comment on above: Order Comment: Speci men Type: BLOOD SPECIMEN Result Comment: 58 eGFR (Estimated GFR) Units of measure: mL/min/1.73 meters squared eGFR is derived from the reexpressed MDRD Study equation using the following parameters: serum creatinine, age, gender and race. The creatinine assay has been calibrated to be traceable to IDMS. An eGFR <60 mL/min/1.73m2 for >3 months is consistent with chronic kidney disease. Refer to KDOQI guidelines for clinical interpretation. In patients with unstable renal function, e.g. those with acute kidney injury, the eGFR may not accurately reflect actual GFR. Performed By: #### 2 4321-2 ####[facility] [id number] [place] [address] Glucose [Mass/Vol] 88 mg/dL Normal 74-99 [facility] Comment on above: Order Comment: [facility] Type: BLOOD SPECIMEN Result Comment: The [place] [employer] (ADA) provides guidance for cutoff values for fasting glucose and random glucose. The ADA defines fasting as no caloric intake for at least 8 hours. Fasting plasma glucose results between 100 to 125 mg/dL indicate increased risk for diabetes (prediabetes). Fasting plasma glucose results greater than or equal to 126 mg/dL meet the criteria for diagnosis of diabetes. In the absence of unequivocal hyperglycemia, results should be confirmed by repeat testing. In a patient with classic symptoms of hyperglycemia or hyperglycemic crisis, random plasma glucose results greater than or equal to 200 mg/dL meet the criteria for diagnosis of diabetes. Reference: Standards of Medical Care in Diabetes 2016, [place] [employer]. Diabetes Care. 2016.39(Suppl 1). Performed By: #### 2 4321-2 ####[facility] [id number] [place] [address] Potassium [Moles/Vol] 3.5 mmol/L Low 3.7-5.1 [facility] Comment on above: Order Comment: [facility] Type: BLOOD SPECIMEN Performed By: #### 2 4321-2 ####[facility] [id number] [place] [address] Sodium [Moles/Vol] 135 mmol/L Low 136-144 [facility] Comment on above: Order Comment: Speci men Type: BLOOD SPECIMEN Performed By: #### 2 4321-2 ####[facility] [id number] [place] [address] Urea nitrogen [Mass/Vol] 11 mg/dL Normal 9-24 [facility] Comment on above: Order Comment: Speci men Type: BLOOD SPECIMEN Performed By: #### 2 4321-2 ####[facility] [id number] [place] [address] CASE MANAGEMon 08-01-2020 CASE MANAGEM HNO ID: [id number] Author: Jd (Rn) BULL Huertas Service: Care Management Author Type: Registered Nurse Type: Care Mgt Progress Note Filed: 08/01/2020 2:18 PM Note Text: CARE MANAGEMENT PROGRESS NOTE SERVICE DATE: 08/01/2020 SERVICE TIME: 2:17 PM LOS: 2 days IMM Follow Up Copy Given: Yes Copy given to:: Patient Method: By Phone (COVID protocol) SIGNATURE: Jd Huertas RN PATIENT NAME: Velia Bagley DATE: August 01, 2020 TIME: 2:17 PM PAGER/CONTACT #: [phone] Normal [facility] CBC Pnl Bld Autoon Erythrocyte distribution width (RBC) [Ratio] 16.5 % High 11.5-15.0 [facility] Comment on above: Order Comment: Speci men Type: BLOOD SPECIMEN Performed By: #### 3 4528-0 #### [facility] CLIA [id number] [address] [place] [address] Hematocrit (Bld) [Volume fraction] 29.7 % Low 39.0-51.0 [facility] Comment on above: Order Comment: Speci men Type: BLOOD SPECIMEN Performed By: #### 3 4528-0 #### [facility] CLIA [id number] [address] [place] [address] Hemoglobin (Bld) [Mass/Vol] 9.4 g/dL Low 13.0-17.0 [facility] Comment on above: Order Comment: Speci men Type: BLOOD SPECIMEN Performed By: #### 3 4528-0 #### [facility] CLIA [id number] [address] [place] [address] MCH (RBC) [Entitic mass] 26.0 pg Normal 26.0-34.0 [facility] Comment on above: Order Comment: Speci men Type: BLOOD SPECIMEN Performed By: #### 3 4528-0 #### [facility] CLIA [id number] [address] [place] [address] MCHC (RBC) [Mass/Vol] 31.6 g/dL Normal 30.5-36.0 [facility] Comment on above: Order Comment: Speci men Type: BLOOD SPECIMEN Performed By: #### 3 4528-0 #### [facility] CLIA [id number] [address] [place] [address] MCV (RBC) [Entitic vol] 82.3 fL Normal 80.0-100.0 [facility] Comment on above: Order Comment: Speci men Type: BLOOD SPECIMEN Performed By: #### 3 4528-0 #### [facility] CLIA [id number] [address] [place] [address] Nucleated RBC (Bld) [#/Vol] 10*3/uL Normal <0.01 [facility] Comment on above: Order Comment: Speci men Type: BLOOD SPECIMEN Performed By: #### 3 4528-0 #### [facility] CLIA [id number] [address] [place] [address] Platelet mean volume (Bld) [Entitic vol] 10.1 fL Normal 9.0-12.7 [facility] Comment on above: Order Comment: Speci men Type: BLOOD SPECIMEN Performed By: #### 3 4528-0 #### [facility] CLIA [id number] [address] [place] [address] Platelets (Bld) [#/Vol] 118 10*3/uL Low 150-400 [facility] Comment on above: Order Comment: Speci men Type: BLOOD SPECIMEN Performed By: #### 3 4528-0 #### [facility] CLIA [id number] [address] [place] [address] RBC (Bld) [#/Vol] 3.61 10*6/uL Low 4.20-6.00 [facility] Comment on above: Order Comment: Speci men Type: BLOOD SPECIMEN Performed By: #### 3 4528-0 #### [facility] CLIA [id number] [address] [place] [address] WBC (Bld) [#/Vol] 2.15 10*3/uL Low 3.70-11.00 [facility] Comment on above: Order Comment: Speci men Type: BLOOD SPECIMEN Performed By: #### 3 4528-0 #### [facility] CLIA [id number] [address] [place] [address] CONSULTon 08-01-2020 CONSULT HNO ID: [id number] Author: Danny Navas Service: Infectious Disease Author Type: Physician Type: Consults Filed: 08/01/2020 8:41 PM Note Text: INFECTIOUS DISEASE INITIAL CONSULT SERVICE DATE: 08/01/2020 SERVICE TIME: 8:21 PM REASON FOR CONSULT: COVID/ getting Hypoxic for Remdesevir and Decadron Recs Subjective Patient is seen at the request of My final recommendations will be communicated back to the requesting physician by way of copy of this note or shared electronic medical record. HPI: Velia Bagley who is a 60 year old male with a history of COPD, severe persistent asthma,essential tremor, GERD, DLD, HTN, ANN cough and shortness of breath for the past 2 days, along with fevers as high as 102 ?F, loss of appetite in the ER he was hypotensive initially but blood pressure improved on fluid resuscitation, chest x-ray did not show any infiltrate, he tested positive for Covid Pertinent labs with leukopenia, D-dimer 330, CRP 4.7 as patient was on room air he was not initiated on remdesivir or Decadron ID has been consulted became hypoxic transiently, had fevers for initiation of remdesivir and Decadron 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 - TIA (transient ischemic attack) 2016 2017 - Urinary retention - UTI (urinary tract infection) - Vocal cord dysfunction PAST SURGICAL HISTORY Procedure Laterality Date - CONVERT HIP REVSN TO TOTAL HIP Right 01/16/2020 ARTHROPLASTY TOTAL HIP CONVERSION AFTER PREVIOUS HIP SURG (Right) - LAMINECTOMY,LUMBAR 03/2016 L4-L5 - PAST SURGICAL HISTORY OF Bilateral x 16 surgeries surgery to repair bone in knee cap and multiple arthroscopies and debridements - PAST SURGICAL HISTORY OF 2018 bronchoscopy 5 total - PERCUT FIX PROX/NECK FEMUR Right 10/17/2019 - REMOVAL DEEP IMPLANT Right 01/16/2020 REMOVAL HARDWARE FEMUR (Right) Social History Tobacco Use - Smoking status: Never Smoker - Smokeless tobacco: Never Used - Tobacco comment: second hand smoke from father. Vaping Use - Vaping Use: Never used Substance Use Topics - Alcohol use: No - Drug use: No FAMILY HISTORY Problem Relation Age of Onset - Emphysema Mother - Blood Clots Mother required IVC filter. Multiple blood clots before (3-4). - Hypertension Mother - Heart Failure Father 72 of CHF. 2 OR before that - Parkinson?s Disease Father 68 - Prostate Cancer Brother - Parkinson?s Disease Paternal Grandfather - Diabetes No Family History Immunization History Administered Date(s) Administered Influenza Seasonal Inj Age 3+ 05/04/2017 Influenza Seasonal Inj Quad Age 6 Mo-64 Yrs Pres Free 02/05/2018 01/16/2020 Pneumovax 05/04/2017 Current Facility-Administered Medications Medication Dose Route Frequency - remdesivir 200 mg in NaCl 0.9% 250 mL 200 mg INTRAVENOUS ONCE And - sodium chloride 0.9 % (flush) 30 mL (BD POSIFLUSH) 30 mL INTRAVENOUS ONCE - dexAMETHasone sodium phosphate (PF) 6 mg injection (DECADRON) 6 mg INTRAVENOUS q 24 H - aztreonam 2 g in D5W 100 mL MB+ (AZACTAM) 2 g INTRAVENOUS q 8 HR - doxycycline 100 mg in D5W 250 mL Vial-Mate (VIBRAMYCIN) 100 mg INTRAVENOUS q 12 H - SUMAtriptan 50 mg tab(s) (IMITREX) 50 mg ORAL DIRECTED PRN - acetaminophen 650 mg tab(s) (TYLENOL) 650 mg ORAL q 6 H PRN - gabapentin 300 mg cap(s) (NEURONTIN) 300 mg ORAL q 8 H - topiramate 100 mg tab(s) (TOPAMAX) 100 mg ORAL 2 TIMES DAILY 1200 AND 1700 - atorvastatin 40 mg tab(s) (LIPITOR) 40 mg ORAL DAILY - tamsulosin 0.8 mg cap(s) (FLOMAX) 0.8 mg ORAL AT BEDTIME - verapamil 120 mg tab(s) (CALAN, ISOPTIN) 120 mg ORAL DAILY - montelukast 10 mg tab(s) (SINGULAIR) 10 mg ORAL AT BEDTIME - venlafaxine ER 75 mg cap(s) (EFFEXOR XR) 75 mg ORAL DAILY - amitriptyline 50 mg tab(s) (ELAVIL) 50 mg ORAL AT BEDTIME - enoxaparin 30 mg injection (LOVENOX) 30 mg SUBCUTANEOUS DAILY - tiotropium bromide 2.5 mcg/actuation 2 Puff (SPIRIVA RESPIMAT) 2 Puff INHALATION DAILY - pantoprazole DR 20 mg tab(s) (PROTONIX) 20 mg ORAL DAILY (6 AM) - guaiFENesin 200 mg oral liquid (ROBITUSSIN) 200 mg ORAL q 4 H PRN - albuterol HFA 90 mcg/actuation 2 Puff (PROVENTIL HFA, VENTOLIN HFA) 2 Puff INHALATION q 6 H PRN ALLERGIES Allergen Reactions - Avocado Swelling - Baclofen Other: See Comments Dizziness and full body weakness - Candasartan [Other] Rash - Chocolate Unknown - Ciprofloxacin (Bulk) Anaphylaxis - Grass Pollen Unknown - Indocin [Indomethac* Rash - Ivp Dye [Iodine] Anaphylaxis - Penicillins Rash - Lima Oil Unknown - Propranolol Other: See Comments Severe low bp and kidneys shutting down. - Sulfa (Sulfonamide * Rash, Itching - Valium [Diazepam] Other: See Comments Depression REVIEW OF SYSTEMS: ROS checked in details x 10 systems and is negative except as noted in the HPI. All qs answered. Objective PHYSICAL EXAM: Temp (24hrs), Av.7 ?C (99.8 ?F), Min:36.2 ?C (97.2 ?F), Max:38.9 ?C (102 ?F) BP 111/69 Pulse 95 Temp (!) 38.5 ?C (101.3 ?F) Resp 24 Ht 177.8 cm (5' 10 ) Wt 99.8 kg (220 lb) SpO2 93% BMI 31.57 kg/m? GENERAL APPEARANCE: Shivering SKIN: No rashes NECK: Supple BACK: no CVAT. LUNGS: + b/l rhonchi HEART: Regular rate/rhythm, normal heart sounds, and no murmurs. ABDOMEN: Soft, non tender, no palpable masses, normal bowel sounds. EXTREMITIES: No edema or tenderness: NEURO: Awake, alert DATA: Diagnostic tests reviewed for today's visit: Labs: Recent Labs 08/01/20 1738 08/01/20 0234 08/01/20 0233 07/31/20 0551 07/30/20 0803 WBC -- -- 2.15* 4.18 5.52 HB -- -- 9.4* 10.3* 11.3* HCT -- -- 29.7* 32.7* 36.9* PLT -- -- 118* 127* 124* INR 1.1 -- -- -- 1.1 NA -- 135* -- 137 137 K -- 3.5* -- 3.7 3.9 CHLOR -- 107* -- 110* 111* CO2 -- 15* -- 16* 16* BUN -- 11 -- 16 19 CREAT -- 1.27* -- 1.50* 1.73* UA: Lab Results Component Value Date SPGR 1.006 07/30/2020 SPGR 1.016 01/24/2020 UGLUC Negative 07/30/2020 UGLUC NEGATIVE 01/24/2020 UBILI Negative 07/30/2020 UBILI NEGATIVE 01/24/2020 UKET Negative 07/30/2020 UKET NEGATIVE 01/24/2020 UHB Negative 07/30/2020 UHB Negative 12/27/2019 UPROT Negative 07/30/2020 UPROT NEGATIVE 01/24/2020 UROBIL 2.0 01/24/2020 UWBC 0-5 /HPF 07/30/2020 UWBC 88.5 01/24/2020 UWBC neg 03/15/2008 WSR: Lab Results Component Value Date WSR 2 2018 Impression/Recommendatio ns Active Problems: Covid positive/transiently hypoxic COPD KRISTA Fevers Plan We will initiate remdesivir 200 mg loading followed by 100 mg for 4 days Started Decadron 6 mg daily for 10 days Started empiric aztreonam(Pen allergy) and doxycycline/obtain procalcitonin Obtain blood cultures as febrile Get a stat chest x-ray Monitor fever curve, CBC electrolytes Daily LFTs while on remdesivir Monitor inflammatory markers every 48 hours ID team will follow Thank you very much for having us involved in the care of this patient. We will follow with you. SIGNATURE: Danny Navas MD PATIENT NAME: Velia Bagley DATE: August 01, 2020 TIME: 8:21 PM PAGER/CONTACT #: [phone] Normal [facility] HEPATIC FUNCTION PNLon 08-01 Albumin [Mass/Vol] 3.3 g/dL Low 3.9-4.9 [facility] Comment on above: Order Comment: Speci men Type: BLOOD SPECIMEN Performed By: #### H FP ####[facility] [id number] [place] [address] ALP [Catalytic activity/Vol] 87 U/L Normal 38-113 [facility] Comment on above: Order Comment: Speci men Type: BLOOD SPECIMEN Performed By: #### H FP ####[facility] [id number] [place] [address] ALT With P-5'-P [Catalytic activity/Vol] 17 U/L Normal 10-54 [facility] Comment on above: Order Comment: Speci men Type: BLOOD SPECIMEN Performed By: #### H FP ####[facility] [id number] [place] [address] AST With P-5'-P [Catalytic activity/Vol] 35 U/L Normal 14-40 [facility] Comment on above: Order Comment: Speci men Type: BLOOD SPECIMEN Performed By: #### H FP ####[facility] [id number] [place] [address] Bilirubin [Mass/Vol] 0.2 mg/dL Normal 0.2-1.3 [facility] Comment on above: Order Comment: Speci men Type: BLOOD SPECIMEN Performed By: #### H FP ####[facility] [id number] [place] [address] Bilirubin.conjugated [Mass/Vol] mg/dL Normal <0.2 [facility] Comment on above: Order Comment: Speci men Type: BLOOD SPECIMEN Performed By: #### H FP ####[facility] [id number] [place] [address] Protein [Mass/Vol] 5.5 g/dL Low 6.3-8.0 [facility] Comment on above: Order Comment: Speci men Type: BLOOD SPECIMEN Performed By: #### H FP ####[facility] [id number] [place] [address] NURSING PROGon 08-01-2020 NURSING PROG HNO ID: [id number] Author: Kinza Batres) BULL Hall Service: Nursing Author Type: Registered Nurse Type: Nursing Progress Note Filed: 08/01/2020 4:19 AM Note Text: Positive sepsis advisory alert. Temp 37.7. 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 No further orders at this time. Normal [facility] NURSING PROG HNO ID: [id number] Author: Kinza Hall RN Service: Nursing Author Type: Registered Nurse Type: Nursing Progress Note Filed: 08/01/2020 2:46 AM Note Text: Order obtained to give one additional dose of tylenol po--done. Labs collected at this time. Pt drowsy but arousable no acute distress noted. Normal [facility] NURSING PROG HNO ID: [id number] Author: Kinza Hall RN Service: Nursing Author Type: Registered Nurse Type: Nursing Progress Note Filed: 08/01/2020 2:15 AM Note Text: Temp rechecked now 38.9. VS:133/79, 99, 92% ra, 20. Pt very drowsy still c/o feeling feverish, ice packs applied under both arms. Sound paged for further orders. Normal [facility] NURSING PROG HNO ID: [id number] Author: Kinza (Rn) BULL Hall Service: Nursing Author Type: Registered Nurse Type: Nursing Progress Note Filed: 08/01/2020 6:00 AM Note Text: Tele noted hr in the 130's, pt found standing alone outside of bathroom. Nurse assisted pt back to bed, gait slow and unsteady. Pt denies dizziness or lightheadedness but is shaky states, I decided to have diarrhea. Pt c/o feeling hot. Tylenol given for fever of 38.3. Bed alarm activated as a safety reminder, urinal placed at bs. Pt able to reposition himself. Po fluids encouraged at this time. Hr returned to sr 90's to low 100's once in bed. Normal [facility] PROGRESSon 08-01-2020 PROGRESS HNO ID: [id number] Author: Neymar Clay Service: Hospital Medicine Author Type: Physician Type: Progress Notes Filed: 08/01/2020 4:22 PM Note Text: INPATIENT PROGRESS NOTE CHIEF COMPLAINT:SOB INTERVAL HPI: no new complaints. Patient denies chest pain or shortness of breath. Was noted to be febrile temperature of 38.9 last night. Denies any cough. Had diarrhea yest PHYSICAL EXAM: BP 111/69 Pulse 95 Temp (Src) 99.1 (Oral) Resp 24 Ht 5' 10 (1.78m) Wt 220 lb (99.8kg) SpO2 93% BMI 31.57 kg/(m2). O2 Therapy: Room Air GENERAL: Alert, no distress, cooperative LUNGS:exp wheezing bilaterally CARDIAC: Normal S1 and S2; no rubs, murmurs, or gallops ABDOMEN: Abdomen soft, non-tender, BS normal, No masses or organomegaly EXTREMITIES: No edema NEURO: Cranial nerves II-XII intact DATA: Diagnostic tests reviewed for today's visit: CBC, Coags, BMP, Mg, Phos Recent Labs 08/01/20 0234 08/01/20 0233 07/31/20 0551 07/30/20 0803 WBC -- 2.15* 4.18 5.52 HB -- 9.4* 10.3* 11.3* HCT -- 29.7* 32.7* 36.9* PLT -- 118* 127* 124* INR -- -- -- 1.1 NA 135* -- 137 137 K 3.5* -- 3.7 3.9 CHLOR 107* -- 110* 111* CO2 15* -- 16* 16* BUN 11 -- 16 19 CREAT 1.27* -- 1.50* 1.73* GLUC 88 -- 96 102* CA 7.7* -- 7.7* 7.8* Assessment/Plan # KRISTA- prerenal. Improving. Baseline cr <1.Renal US neg # COVID 19 PNA- febrile overnight. Has leukopenia . Comfortable on RA. Slightly hypoxic at 92-93% on RA. Monitor. ? Start Remdesivir and Decadron. Will get ID input. # lymphopenia- from COVID 19 # AG metabolic acidosis- suspect from KRISTA # elevated troponin- seems chronic # COPD- noted to be wheezing. C/w bronchodilators SIGNATURE: Neymar Clay MD PATIENT NAME: Velia Bagley DATE: August 01, 2020 TIME: 4:14 PM PAGER: Normal [facility] PT Pnl PPPon 08-01-2020 INR Coag (PPP) [Relative time] 1.1 {INR} Normal 0.9-1.3 [facility] Comment on above: Order Comment: Speci men Type: BLOOD SPECIMEN Result Comment: Danielle min K Antagonist (VKA) Therapeutic Range: INR 2 to 3 (Target INR of 2.5) Note: For patients treated with VKA drugs, such as warfarin, the [employer] 2012 Guideline recommends a therapeutic INR range of 2 to 3 (target INR of 2.5). This recommendation includes high-risk patients with antiphospholipid syndrome with previous arterial or venous thromboembolism, current-generation mechanical or bioprosthetic aortic heart valve replacement. Note: Patients with mechanical aortic valve replacement and additional risk factors for thromboembolic events (atrial fibrillation, previous thromboembolism, LV dysfunction, hypercoagulable conditions) or an older generation mechanical AVR (i.e., ball in-Cage) or any mechanical MVR should have a INR therapeutic range of 2.5 to 3.5 (target INR of 3). Kevin MCCORMICK, et al. Chest 2012, 141:7S-47S Jimbo RA, et al. JAC 2017, 70: 252-289 Performed By: #### 3 4528-0 #### [facility] CLIA [id number] [address] [place] [address] PT Coag (PPP) [Time] 11.0 s Normal 9.7-13.0 [facility] Comment on above: Order Comment: Speci men Type: BLOOD SPECIMEN Performed By: #### 3 4528-0 #### [facility] CLIA [id number] [address] [place] [address] XR CHEST 1V FRONTALon 2020 XR CHEST 1V FRONTAL Final Report DATE OF EXAM: Aug 01 2020 9:05PM AKX [id number] - XR CHEST 1V FRONTAL / PROCEDURE REASON: Acute respiratory illness Physician Interpretation EXAMINATION: CHEST RADIOGRAPH (SINGLE VIEW AP OR PA) CLINICAL HISTORY: Acute respiratory illness, Cough, new onset, Shortness of breath, Wheezing MQ: XC1_5 Comparison: 07/21/2020. RESULT: Lines, tubes, and devices: None. Lungs and pleura: No consolidation. No lung mass. No pleural effusion. Cardiomediastinal silhouette: Heart is enlarged. IMPRESSION: No acute radiographic abnormality. Criminalist Technician: PSCB Transcribe Date/Time: Aug 01 2020 9:09P Dictated by : ANTHONY THAKUR MD This examination was interpreted and the report reviewed and electronically signed by: ANTHONY THAKUR MD on Aug 01 2020 9:11PM EST Normal [facility] Bas Metab 2000 Pnl SerPlon 0 07-31-2020 Anion gap [Moles/Vol] 11 mmol/L Normal 9-18 [facility] Comment on above: Order Comment: Speci men Type: BLOOD SPECIMEN Performed By: #### 3 4528-0 #### [facility] CLIA [id number] [address] [place] [address] Calcium [Mass/Vol] 7.7 mg/dL Low 8.5-10.2 [facility] Comment on above: Order Comment: Speci men Type: BLOOD SPECIMEN Performed By: #### 3 4528-0 #### [facility] CLIA [id number] [address] [place] [address] Chloride [Moles/Vol] 110 mmol/L High 97-105 [facility] Comment on above: Order Comment: Speci men Type: BLOOD SPECIMEN Performed By: #### 3 4528-0 #### [facility] CLIA [id number] [address] [place] [address] CO2 [Moles/Vol] 16 mmol/L Low 22-30 [facility] Comment on above: Order Comment: Speci men Type: BLOOD SPECIMEN Performed By: #### 3 4528-0 #### [facility] CLIA [id number] [address] [place] [address] Creatinine [Mass/Vol] 1.50 mg/dL High 0.73-1.22 [facility] Comment on above: Order Comment: Speci men Type: BLOOD SPECIMEN Performed By: #### 3 4528-0 #### [facility] CLIA [id number] [address] [place] [address] GFR/1.73 sq M.predicted MDRD (S/P/Bld) [Vol rate/Area] 58 mL/min/{1.73_m2} Normal [facility] Comment on above: Order Comment: Speci men Type: BLOOD SPECIMEN Result Comment: 48 eGFR (Estimated GFR) Units of measure: mL/min/1.73 meters squared eGFR is derived from the reexpressed MDRD Study equation using the following parameters: serum creatinine, age, gender and race. The creatinine assay has been calibrated to be traceable to IDMS. An eGFR <60 mL/min/1.73m2 for >3 months is consistent with chronic kidney disease. Refer to KDOQI guidelines for clinical interpretation. In patients with unstable renal function, e.g. those with acute kidney injury, the eGFR may not accurately reflect actual GFR. Performed By: #### 3 4528-0 #### [facility] CLIA [id number] [address] [place] [address] Glucose [Mass/Vol] 96 mg/dL Normal 74-99 [facility] Comment on above: Order Comment: Speci men Type: BLOOD SPECIMEN Result Comment: The [employer] (ADA) provides guidance for cutoff values for fasting glucose and random glucose. The ADA defines fasting as no caloric intake for at least 8 hours. Fasting plasma glucose results between 100 to 125 mg/dL indicate increased risk for diabetes (prediabetes). Fasting plasma glucose results greater than or equal to 126 mg/dL meet the criteria for diagnosis of diabetes. In the absence of unequivocal hyperglycemia, results should be confirmed by repeat testing. In a patient with classic symptoms of hyperglycemia or hyperglycemic crisis, random plasma glucose results greater than or equal to 200 mg/dL meet the criteria for diagnosis of diabetes. Reference: Standards of Medical Care in Diabetes 2016, [employer]. Diabetes Care. 2016.39(Suppl 1). Performed By: #### 3 4528-0 #### [facility] CLIA [id number] [address] [place] [address] Potassium [Moles/Vol] 3.7 mmol/L Normal 3.7-5.1 [facility] Comment on above: Order Comment: Speci men Type: BLOOD SPECIMEN Performed By: #### 3 4528-0 #### [facility] CLIA [id number] [address] [place] [address] Sodium [Moles/Vol] 137 mmol/L Normal 136-144 [facility] Comment on above: Order Comment: Speci men Type: BLOOD SPECIMEN Performed By: #### 3 4528-0 #### [facility] CLIA [id number] [address] [place] [address] Urea nitrogen [Mass/Vol] 16 mg/dL Normal 9-24 [facility] Comment on above: Order Comment: Speci men Type: BLOOD SPECIMEN Performed By: #### 3 4528-0 #### [facility] CLIA [id number] [address] [place] [address] CBC Pnl Bld Autoon 1 Erythrocyte distribution width (RBC) [Ratio] 16.9 % High 11.5-15.0 [facility] Comment on above: Order Comment: Speci men Type: BLOOD SPECIMEN Performed By: #### 3 4528-0 #### [facility] CLIA [id number] [address] [place] [address] Hematocrit (Bld) [Volume fraction] 32.7 % Low 39.0-51.0 [facility] Comment on above: Order Comment: Speci men Type: BLOOD SPECIMEN Performed By: #### 3 4528-0 #### [facility] CLIA [id number] [address] [place] [address] Hemoglobin (Bld) [Mass/Vol] 10.3 g/dL Low 13.0-17.0 [facility] Comment on above: Order Comment: Speci men Type: BLOOD SPECIMEN Performed By: #### 3 4528-0 #### [facility] CLIA [id number] [address] [place] [address] MCH (RBC) [Entitic mass] 26.8 pg Normal 26.0-34.0 [facility] Comment on above: Order Comment: Speci men Type: BLOOD SPECIMEN Performed By: #### 3 4528-0 #### [facility] CLIA [id number] [address] [place] [address] MCHC (RBC) [Mass/Vol] 31.5 g/dL Normal 30.5-36.0 [facility] Comment on above: Order Comment: Speci men Type: BLOOD SPECIMEN Performed By: #### 3 4528-0 #### [facility] CLIA [id number] [address] [place] [address] MCV (RBC) [Entitic vol] 84.9 fL Normal 80.0-100.0 [facility] Comment on above: Order Comment: Speci men Type: BLOOD SPECIMEN Performed By: #### 3 4528-0 #### [facility] CLIA [id number] [address] [place] [address] Nucleated RBC (Bld) [#/Vol] 10*3/uL Normal <0.01 [facility] Comment on above: Order Comment: Speci men Type: BLOOD SPECIMEN Performed By: #### 3 4528-0 #### [facility] CLIA [id number] [address] [place] [address] Platelet mean volume (Bld) [Entitic vol] 9.6 fL Normal 9.0-12.7 [facility] Comment on above: Order Comment: Speci men Type: BLOOD SPECIMEN Performed By: #### 3 4528-0 #### [facility] CLIA [id number] [address] [place] [address] Platelets (Bld) [#/Vol] 127 10*3/uL Low 150-400 [facility] Comment on above: Order Comment: Speci men Type: BLOOD SPECIMEN Performed By: #### 3 4528-0 #### [facility] CLIA [id number] [address] [place] [address] RBC (Bld) [#/Vol] 3.85 10*6/uL Low 4.20-6.00 [facility] Comment on above: Order Comment: Speci men Type: BLOOD SPECIMEN Performed By: #### 3 4528-0 #### [facility] CLIA [id number] [address] [place] [address] WBC (Bld) [#/Vol] 4.18 10*3/uL Normal 3.70-11.00 [facility] Comment on above: Order Comment: Speci men Type: BLOOD SPECIMEN Performed By: #### 3 4528-0 #### [facility] CLIA [id number] [address] [place] [address] NURSING PROGon 07-31-2020 NURSING PROG HNO ID: [id number] Author: Kinza HarperRn) B[place] Service: Nursing Author Type: Registered Nurse Type: Nursing Progress Note Filed: 07/31/2020 1:37 AM Note Text: Pt c/o persistent nonproductive cough. Pt denies sob but feels like he is trying to cough something up. Noted home Albuterol mdi at which he states he has not used yet. Primary paged and okayed robitussin syrup and albuterol mdi every 6 hour prn sob. Normal [facility] PROGRESSon 07-31-2020 PROGRESS HNO ID: [id number] Author: Natali Albert MD Service: General Internal Medicine Author Type: Physician Type: Progress Notes Filed: 07/31/2020 12:17 PM Note Text: DEPARTMENT OF HOSPITAL MEDICINE PROGRESS NOTE SERVICE DATE: 07/31/2020 SERVICE TIME: 10:01 AM Hospital Medicine/Primary Attending: Natali Albert MD NIGHT AND WEEKEND COVERAGE: After 7pm please page [phone] SUBJECTIVE: Pt seen and examined. Continues to have cough on and off. Denies any shortness of breath. Wants to go home. OBJECTIVE: PHYSICAL EXAM: BP 118/69 Pulse 92 Temp (Src) 98.2 (Oral) Resp 24 Ht 5' 10 (1.78m) Wt 220 lb (99.8kg) SpO2 94% BMI 31.57 kg/(m2). O2 Therapy: Room Air General - AANDOx3, NAD, Calm CV - RRR S1 S2, No M/R/G RESP - CTA B/L, occasional crackles at the base ABD - soft, NT, ND +BS EXT - no edema NEURO - CN II-XII grossly intact, no focal deficits MEDICATIONS: Current Facility-Administered Medications Medication Dose Route Frequency - acetaminophen 650 mg tab(s) (TYLENOL) 650 mg ORAL q 6 H PRN - gabapentin 300 mg cap(s) (NEURONTIN) 300 mg ORAL q 8 H - topiramate 100 mg tab(s) (TOPAMAX) 100 mg ORAL 2 TIMES DAILY 1200 AND 1700 - atorvastatin 40 mg tab(s) (LIPITOR) 40 mg ORAL DAILY - tamsulosin 0.8 mg cap(s) (FLOMAX) 0.8 mg ORAL AT BEDTIME - verapamil 120 mg tab(s) (CALAN, ISOPTIN) 120 mg ORAL DAILY - montelukast 10 mg tab(s) (SINGULAIR) 10 mg ORAL AT BEDTIME - aspirin 81 mg chewable tab(s) 81 mg ORAL BID - venlafaxine ER 75 mg cap(s) (EFFEXOR XR) 75 mg ORAL DAILY - amitriptyline 50 mg tab(s) (ELAVIL) 50 mg ORAL AT BEDTIME - enoxaparin 30 mg injection (LOVENOX) 30 mg SUBCUTANEOUS DAILY - tiotropium bromide 2.5 mcg/actuation 2 Puff (SPIRIVA RESPIMAT) 2 Puff INHALATION DAILY - pantoprazole DR 20 mg tab(s) (PROTONIX) 20 mg ORAL DAILY (6 AM) - guaiFENesin 200 mg oral liquid (ROBITUSSIN) 200 mg ORAL q 4 H PRN - albuterol HFA 90 mcg/actuation 2 Puff (PROVENTIL HFA, VENTOLIN HFA) 2 Puff INHALATION q 6 H PRN DATA: Diagnostic tests reviewed for today's visit: CBC: Recent Labs 07/31/20 0551 WBC 4.18 RBC 3.85* HB 10.3* HCT 32.7* PLT 127* MCV 84.9 MCH 26.8 MPV 9.6 BMP: Recent Labs 07/31/20 0551 NA 137 K 3.7 CHLOR 110* CO2 16* BUN 16 CREAT 1.50* GLUC 96 CMP: Recent Labs 07/31/20 0551 NA 137 K 3.7 CHLOR 110* CO2 16* BUN 16 CREAT 1.50* GLUC 96 CA 7.7* ANION 11 Renal Panel: Recent Labs 07/31/20 0551 CREAT 1.50* BUN 16 GLUC 96 CA 7.7* CHLOR 110* K 3.7 CO2 16* NA 137 Estimated Creatinine Clearance: 62.8 mL/min (A) (based on SCr of 1.5 mg/dL (H)). Assessment/Plan 1.Acute kidney injury ?Renal ultrasound reports no hydronephrosis ?Continue to hold losartan ? Improving, continue to monitor ?Reports that his appetite is improving ?Discontinue IV fluid hydration ? 2. Hypotension, history of hypertension ?Resolved ?Restart clonidine, if blood pressure starts to rise ?Continue to monitor blood pressure ? 3. COVID-19 ?doesn't meet criteria for dexamethasone or remdesevir currently ?Check inflammatory markers ?Continue to monitor ? 4. Non-anion gap metabolic acidosis ?Blood cultures pending ? 5. History of migraine headache ?Decrease dose of gabapentin and Topamax, adjusted for his renal function Medication and Non-Pharmacologic VTE Prophylaxis/Anticoagulan ts Anticoagulant AND Antiplatelet Medications (From admission, onward) Comment Start Dose Route Frequency Last Action Ordered Stop 07/30/20929 aspirin 81 mg chewable tab(s) 81 mg ORAL 2 TIMES DAILY Given, 08/01 80707/30/20925 -- 07/30/20929 enoxaparin 30 mg injection (LOVENOX) (Medical Risk Categories) 30 mg SUBCUTANEOUS DAILY Given, 08/01 80707/30/20925 -- 07/30/20929 vte non-pharmacologic prophylaxis - none indicated (nv,oh) Lines, Drains, and Airways Line Peripheral 07/29/202233 Short Right Antecubital 18 Gauge 1 day VTE Prophylaxis: Lovenox 30 units daily Disposition: Home Plan of care discussed with: Patient SIGNATURE: Natali Albert MD PATIENT NAME: Velia Bagley DATE: July 31, 2020 TIME: 10:01 AM PAGER/CONTACT #: Philip palacios pager Disclaimer: Portions of this note may have been generated using [employer] voice recognition software. Reasonable efforts were made to correct any dictation errors that resulted due to the programming of this software but some may still be present. Please note, the time of this note does not reflect the time I saw this patient today, but the time of this documentation. Normal [facility] ALLIED HEALTHon 07-30-2020 ALLIED HEALTH HNO ID: [id number] Author: Rosaura Posada (Rt) Service: Radiology Author Type: Carcass Splitter Type: Allied Health Filed: 07/29/2020 10:56 PM Note Text: Radiology Service Progress Note PATIENT NAME: Velia Bagley DATE OF SERVICE: July 29, 2020 TIME: 10:56 PM PATIENT IDENTITY VERIFICATION COMPLETED USING TWO (2) IDENTIFIERS: Name and Date of confirmed by patient verbally and Name and Date of confirmed by identification band. FALL SCREENING: Has the patient had 2 falls in the last year or 1 fall with injury or currently using an Ambulatory Assistive Device (Walker, Cane, Wheelchair, Crutches, etc.)? Emergency Room Patient: Screened in ED PATIENT GENDER DATA: Male PATIENT RELEVANT IMPLANT DATA REVIEWED: Not Applicable RADIOLOGY DEPARTMENT: General X-ray: Exam(s) Completed: Chest X-Ray PERIPHERAL IV DATA: Not applicable SIGNED BY: RT Swetha July 29, 2020 10:56 PM Normal [facility] Bacteria Bld Culton 07-31-19 21 Bacteria identified Cx Nom (Bld) CULTURE, BLOOD: No growth 5 days Normal [facility] Comment on above: Performed By: #### 6 -7 ####[facility] [id number] [place] [address] Bacteria identified Cx Nom (Bld) CULTURE, BLOOD: No growth 5 days Normal [facility] Comment on above: Performed By: #### 6 00-7 ####[facility] [id number] [place] [address] Bas Metab 2000 Pnl SerPlon 0 3-29-2021 Anion gap [Moles/Vol] 10 mmol/L Normal 9-18 [facility] Comment on above: Order Comment: Speci men Type: BLOOD SPECIMEN Performed By: #### 2 4320-06, 1987-09 ####[facility] [id number] [place] [address] Calcium [Mass/Vol] 7.8 mg/dL Low 8.5-10.2 [facility] Comment on above: Order Comment: Speci men Type: BLOOD SPECIMEN Performed By: #### 2 4320-06, 1987-09 ####[facility] [id number] [place] [address] Chloride [Moles/Vol] 111 mmol/L High 97-105 [facility] Comment on above: Order Comment: Speci men Type: BLOOD SPECIMEN Performed By: #### 2 4320-06, 1987-09 ####[facility] [id number] [place] [address] CO2 [Moles/Vol] 16 mmol/L Low 22-30 [facility] Comment on above: Order Comment: Speci men Type: BLOOD SPECIMEN Performed By: #### 2 4320-06, 1987-09 ####[facility] [id number] [place] [address] Creatinine [Mass/Vol] 1.73 mg/dL High 0.73-1.22 [facility] Comment on above: Order Comment: Speci men Type: BLOOD SPECIMEN Performed By: #### 2 4320-06, 1987-09 ####[facility] [id number] [place] [address] GFR/1.73 sq M.predicted MDRD (S/P/Bld) [Vol rate/Area] 49 mL/min/{1.73_m2} Normal [facility] Comment on above: Order Comment: Speci men Type: BLOOD SPECIMEN Result Comment: 41 eGFR (Estimated GFR) Units of measure: mL/min/1.73 meters squared eGFR is derived from the reexpressed MDRD Study equation using the following parameters: serum creatinine, age, gender and race. The creatinine assay has been calibrated to be traceable to IDMT. An eGFR <60 mL/min/1.73m2 for >3 months is consistent with chronic kidney disease. Refer to KDOQI guidelines for clinical interpretation. In patients with unstable renal function, e.g. those with acute kidney injury, the eGFR may not accurately reflect actual GFR. Performed By: #### 2 4320-06, 1987-09 ####[facility] [id number] [place] [address] Glucose [Mass/Vol] 102 mg/dL High 74-99 [facility] Comment on above: Order Comment: Speci men Type: BLOOD SPECIMEN Result Comment: The [employer] (ADA) provides guidance for cutoff values for fasting glucose and random glucose. The ADA defines fasting as no caloric intake for at least 8 hours. Fasting plasma glucose results between 100 to 125 mg/dL indicate increased risk for diabetes (prediabetes). Fasting plasma glucose results greater than or equal to 126 mg/dL meet the criteria for diagnosis of diabetes. In the absence of unequivocal hyperglycemia, results should be confirmed by repeat testing. In a patient with classic symptoms of hyperglycemia or hyperglycemic crisis, random plasma glucose results greater than or equal to 200 mg/dL meet the criteria for diagnosis of diabetes. Reference: Standards of Medical Care in Diabetes 2016, [place] [employer]. Diabetes Care. 2016.39(Suppl 1). Performed By: #### 2 1987-09 ####[facility] [id number] [place] [address] Potassium [Moles/Vol] 3.9 mmol/L Normal 3.7-5.1 [facility] Comment on above: Order Comment: Speci men Type: BLOOD SPECIMEN Performed By: #### 2 4320-06, 1987-09 ####[facility] [id number] [place] [address] Sodium [Moles/Vol] 137 mmol/L Normal 136-144 [facility] Comment on above: Order Comment: Speci men Type: BLOOD SPECIMEN Performed By: #### 2 4320-06, 1987-09 ####[facility] [id number] [place] [address] Urea nitrogen [Mass/Vol] 19 mg/dL Normal 9-24 [facility] Comment on above: Order Comment: Speci men Type: BLOOD SPECIMEN Performed By: #### 2 4321-2, 1987-09 ####[facility] [id number] [place] [address] Anion gap [Moles/Vol] 14 mmol/L Normal 9-18 [facility] Comment on above: Order Comment: Speci men Type: BLOOD SPECIMEN Performed By: #### 2 4321-2 #### [facility] CLIA [id number] [address] [place] [address] Calcium [Mass/Vol] 8.3 mg/dL Low 8.5-10.2 [facility] Comment on above: Order Comment: Speci men Type: BLOOD SPECIMEN Performed By: #### 2 4321-2 #### [facility] CLIA [id number] [address] [place] [address] Chloride [Moles/Vol] 106 mmol/L High 97-105 [facility] Comment on above: Order Comment: Speci men Type: BLOOD SPECIMEN Performed By: #### 2 4321-2 #### [facility] CLIA [id number] [address] [place] [address] CO2 [Moles/Vol] 16 mmol/L Low 22-30 [facility] Comment on above: Order Comment: Speci men Type: BLOOD SPECIMEN Performed By: #### 2 4321-2 #### [facility] CLIA [id number] [address] [place] [address] Creatinine [Mass/Vol] 1.79 mg/dL High 0.73-1.22 [facility] Comment on above: Order Comment: Speci men Type: BLOOD SPECIMEN Performed By: #### 2 4321-2 #### [facility] CLIA [id number] [address] [place] [address] GFR/1.73 sq M.predicted MDRD (S/P/Bld) [Vol rate/Area] 47 mL/min/{1.73_m2} Normal [facility] Comment on above: Order Comment: [facility] Type: BLOOD SPECIMEN Result Comment: 39 eGFR (Estimated GFR) Units of measure: mL/min/1.73 meters squared eGFR is derived from the reexpressed MDRD Study equation using the following parameters: serum creatinine, age, gender and race. The creatinine assay has been calibrated to be traceable to IDMS. An eGFR <60 mL/min/1.73m2 for >3 months is consistent with chronic kidney disease. Refer to KDOQI guidelines for clinical interpretation. In patients with unstable renal function, e.g. those with acute kidney injury, the eGFR may not accurately reflect actual GFR. Performed By: #### 2 4321-2 #### [facility] CLIA [id number] [address] [place] [address] Glucose [Mass/Vol] 169 mg/dL High 74-99 [facility] Comment on above: Order Comment: [facility] Type: BLOOD SPECIMEN Result Comment: The [place] [employer] (ADA) provides guidance for cutoff values for fasting glucose and random glucose. The ADA defines fasting as no caloric intake for at least 8 hours. Fasting plasma glucose results between 100 to 125 mg/dL indicate increased risk for diabetes (prediabetes). Fasting plasma glucose results greater than or equal to 126 mg/dL meet the criteria for diagnosis of diabetes. In the absence of unequivocal hyperglycemia, results should be confirmed by repeat testing. In a patient with classic symptoms of hyperglycemia or hyperglycemic crisis, random plasma glucose results greater than or equal to 200 mg/dL meet the criteria for diagnosis of diabetes. Reference: Standards of Medical Care in Diabetes 2016, [employer]. Diabetes Care. 2016.39(Suppl 1). Performed By: #### 2 4321-2 #### [facility] CLIA [id number] [address] [place] [address] Potassium [Moles/Vol] 3.5 mmol/L Low 3.7-5.1 [facility] Comment on above: Order Comment: [facility] Type: BLOOD SPECIMEN Performed By: #### 2 4321-2 #### [facility] CLIA [id number] [address] [place] [address] Sodium [Moles/Vol] 136 mmol/L Normal 136-144 [facility] Comment on above: Order Comment: Speci men Type: BLOOD SPECIMEN Performed By: #### 2 4321-2 #### [facility] CLIA [id number] [address] [place] [address] Urea nitrogen [Mass/Vol] 18 mg/dL Normal 9-24 [facility] Comment on above: Order Comment: Speci men Type: BLOOD SPECIMEN Performed By: #### 2 4321-2 #### [facility] CLIA [id number] [address] [place] [address] CASE MANAGEMon 07-30-2020 CASE MANAGEM HNO ID: [id number] Author: MARIAN Phillips (Lisw) Service: Social Work Author Type: Insulation Cupola Charger Type: Care Mgt Progress Note Filed: 07/30/2020 3:06 PM Note Text: CARE MANAGEMENT PROGRESS NOTE SERVICE DATE: 07/30/2020 SERVICE TIME: 3:03 PM LOS: 0 days ... Called patient in his room since he is in isolation. Phone rings with no answer. Called patient's cell phone # in an effort to complete the initial assessment. Message left. SIGNATURE: MARIAN Phillips PATIENT NAME: Velia Bagley DATE: July 30, 2020 TIME: 3:03 PM PAGER/CONTACT #: [phone] [facility] CASE MGT INIT PRASANNAESon 2020 CASE MGT INIT ASSJUVENTINO HNO ID: [id number] Author: MARIAN Phillpis (Lisw) Service: Social Work Author Type: Insulation Cupola Charger Type: Care Mgt Initial Assessment Filed: 07/30/2020 3:32 PM Note Text: CARE MANAGEMENT: ASSESSMENT AND DISCHARGE PLAN SERVICE DATE: July 30, 2020 SERVICE TIME: 3:29 PM PRIMARY CARE PHYSICIAN: Rachel Rayo MD ADMISSION STATUS: Inpatient Needs Prior to Discharge: Patient/Family;OT/PT Evaluation MEDICAL: [facility] Patient/Public Health Doctor Stated Goals: To have reduction in symptoms Health Insurance: [employer] [facility] Issues Impacting Discharge Plan: Newly diagnosed Newly Diagnosed: + covid, KRISTA Last Discharge Date: 01/27/20 Is this Within the Past 30 days? Last discharge within 30 days: No Advance Directive: Current Advance Directive: Health Care Power of Cardiology Clinical Consultant In Chart: No Line Out Worker Attempted to Assist with AD Completion: No Unable to Assist Due To:: (Daughter Toya is his DPOAHC. Documents in [place]) Health LiteracyHow often do you need to have someone help you when you read instructions, pamphlets, or other written material from your doctor or pharmacy? : 1 - Never How confident are you filling out medical forms by yourself?: 1 - Extremely Baseline Mental Status Prior to this Illness what was the patient's Baseline Mental Status?: Alert AND Oriented Prior to this illness, has anyone described the patient having any of the following behaviors?: Not Applicable Relationship of the informant to the patient:: Self Functional Status: Independent Does Patient Currently Receive Any Community Services or Home Care?: None Equipment Prior to Admission: Cane;Walker Has the Patient Been in a Prison Facility in the Past 30 days?: No SOCIAL: Living Arrangements: Home Lives With: Son Financial Resources: Disabled Primary Contact: Extended Emergency Contact Information Primary Emergency Contact: Teri Bagley Relation: Daughter Secondary Emergency Contact: [employer] Relation: Son Supportive Patient Contact:: Yes Contact Resources: Family Family Name/Phone: Daughter and son Caregiver AssessmentCaregiver is ready, willing and able to meet the patient's needs as recommended by the inter-professional team:: No Caregiver needed Does the patient have an acute stroke diagnosis, or has the patient had a stroke during this admission?: No Patient's transition needs and plan for meeting these needs: Home. Self care Patient's perception of need for this admission: + covid Medication Adherance I am convinced of the importance of my prescription medication: 0 - Agree Completely I worry that my prescription medication will do more harm than good to me : 0 - Disagree Completely I feel financially burdened by my [id number] expenses for my prescription medication:: 0 - Disagree Completely Risk Score: 0 Patient is categorized as: Low risk < 2 Are you interested in bedside delivery of your medications? Yes Is Patient Psychosocially Complex?: No ASSESSMENT AND PLAN: Medical Needs: Medical Needs: Two or more chronic diseases Psychosocial Needs: Psychosocial Needs: None FREEDOM OF CHOICE EXPLAINED: [place] of Choice Given: No Reason Not Given: No placements necessary POTENTIAL TRANSITION PLANS Home Called patient due to isolation. Patient was here visiting daughter who is in ICU. Patient lives in [facility] when he got sick. + cane and walker. Patient is on Disability. No services in place. If he gets scripts he would like them filled here before returning to [place]. + PCP,=script. Son will transport him home when medically ready. On room air now. SIGNATURE: MARIAN Phillips PATIENT NAME: Velia Bagley DATE: July 30, 2020 TIME: 3:29 PM PAGER/CONTACT #: [phone] Normal [facility] CBC Pnl Bld Autoon Erythrocyte distribution width (RBC) [Ratio] 16.8 % High 11.5-15.0 [facility] Comment on above: Order Comment: Speci men Type: BLOOD SPECIMEN Performed By: #### 3 4528-0 #### [facility] CLIA [id number] [address] [place] [address] Hematocrit (Bld) [Volume fraction] 36.9 % Low 39.0-51.0 [facility] Comment on above: Order Comment: Speci men Type: BLOOD SPECIMEN Performed By: #### 3 4528-0 #### [facility] CLIA [id number] [address] [place] [address] Hemoglobin (Bld) [Mass/Vol] 11.3 g/dL Low 13.0-17.0 [facility] Comment on above: Order Comment: Speci men Type: BLOOD SPECIMEN Performed By: #### 3 4528-0 #### [facility] CLIA [id number] [address] [place] [address] MCH (RBC) [Entitic mass] 26.6 pg Normal 26.0-34.0 [facility] Comment on above: Order Comment: Speci men Type: BLOOD SPECIMEN Performed By: #### 3 4528-0 #### [facility] CLIA [id number] [address] [place] [address] MCHC (RBC) [Mass/Vol] 30.6 g/dL Normal 30.5-36.0 [facility] Comment on above: Order Comment: Speci men Type: BLOOD SPECIMEN Performed By: #### 3 4528-0 #### [facility] CLIA [id number] [address] [place] [address] MCV (RBC) [Entitic vol] 86.8 fL Normal 80.0-100.0 [facility] Comment on above: Order Comment: Speci men Type: BLOOD SPECIMEN Performed By: #### 3 4528-0 #### [facility] CLIA [id number] [address] [place] [address] Nucleated RBC (Bld) [#/Vol] 10*3/uL Normal <0.01 [facility] Comment on above: Order Comment: Speci men Type: BLOOD SPECIMEN Performed By: #### 3 4528-0 #### [facility] CLIA [id number] [address] [place] [address] Platelet mean volume (Bld) [Entitic vol] 9.5 fL Normal 9.0-12.7 [facility] Comment on above: Order Comment: Speci men Type: BLOOD SPECIMEN Performed By: #### 3 4528-0 #### [facility] CLIA [id number] [address] [place] [address] Platelets (Bld) [#/Vol] 124 10*3/uL Low 150-400 [facility] Comment on above: Order Comment: Speci men Type: BLOOD SPECIMEN Performed By: #### 3 4528-0 #### [facility] CLIA [id number] [address] [place] [address] RBC (Bld) [#/Vol] 4.25 10*6/uL Normal 4.20-6.00 [facility] Comment on above: Order Comment: Speci men Type: BLOOD SPECIMEN Performed By: #### 3 4528-0 #### [facility] CLIA [id number] [address] [place] [address] WBC (Bld) [#/Vol] 5.52 10*3/uL Normal 3.70-11.00 [facility] Comment on above: Order Comment: Speci men Type: BLOOD SPECIMEN Performed By: #### 3 4528-0 #### [facility] CLIA [id number] [address] [place] [address] CBC W Auto Diff [place] 2020 Basophils (Bld) [#/Vol] 10*3/uL Normal <0.11 [facility] Comment on above: Order Comment: Speci men Type: BLOOD SPECIMEN Performed By: #### 5 7021-8 #### [facility] CLIA [id number] [address] [place] [address] Basophils/100 WBC (Bld) 0.2 % Normal [facility] Comment on above: Order Comment: Speci men Type: BLOOD SPECIMEN Performed By: #### 5 7021-8 #### [facility] CLIA [id number] [address] [place] [address] Differential cell count method Nom (Bld) Auto Normal [facility] Comment on above: Order Comment: Speci men Type: BLOOD SPECIMEN Performed By: #### 5 7021-8 #### [facility] CLIA [id number] [address] [place] [address] Eosinophils (Bld) [#/Vol] 10*3/uL Normal <0.46 [facility] Comment on above: Order Comment: Speci men Type: BLOOD SPECIMEN Performed By: #### 5 7021-8 #### [facility] CLIA [id number] [address] [place] [address] Eosinophils/100 WBC (Bld) 0.0 % Normal [facility] Comment on above: Order Comment: Speci men Type: BLOOD SPECIMEN Performed By: #### 5 7021-8 #### [facility] CLIA [id number] [address] [place] [address] Erythrocyte distribution width (RBC) [Ratio] 16.5 % High 11.5-15.0 [facility] Comment on above: Order Comment: Speci men Type: BLOOD SPECIMEN Performed By: #### 5 7021-8 #### [facility] CLIA [id number] [address] [place] [address] Hematocrit (Bld) [Volume fraction] 39.4 % Normal 39.0-51.0 [facility] Comment on above: Order Comment: Speci men Type: BLOOD SPECIMEN Performed By: #### 5 7021-8 #### [facility] CLIA [id number] [address] [place] [address] Hemoglobin (Bld) [Mass/Vol] 12.1 g/dL Low 13.0-17.0 [facility] Comment on above: Order Comment: Speci men Type: BLOOD SPECIMEN Performed By: #### 5 7021-8 #### [facility] CLIA [id number] [address] [place] [address] IMMATURE GRAN % 0.5 % Normal [facility] Comment on above: Order Comment: Speci men Type: BLOOD SPECIMEN Performed By: #### 5 7021-8 #### [facility] CLIA [id number] [address] [place] [address] IMMATURE GRAN ABS 0.03 k/uL Normal <0.10 [facility] Comment on above: Order Comment: Speci men Type: BLOOD SPECIMEN Performed By: #### 5 7021-8 #### [facility] CLIA [id number] [address] [place] [address] Lymphocytes (Bld) [#/Vol] 1.27 10*3/uL Normal 1.00-4.00 [facility] Comment on above: Order Comment: Speci men Type: BLOOD SPECIMEN Performed By: #### 5 7021-8 #### [facility] CLIA [id number] [address] [place] [address] Lymphocytes/100 WBC (Bld) 20.3 % Normal [facility] Comment on above: Order Comment: Speci men Type: BLOOD SPECIMEN Performed By: #### 5 7021-8 #### [facility] CLIA [id number] [address] [place] [address] MCH (RBC) [Entitic mass] 26.9 pg Normal 26.0-34.0 [facility] Comment on above: Order Comment: Speci men Type: BLOOD SPECIMEN Performed By: #### 5 7021-8 #### [facility] CLIA [id number] [address] [place] [address] MCHC (RBC) [Mass/Vol] 30.7 g/dL Normal 30.5-36.0 [facility] Comment on above: Order Comment: Speci men Type: BLOOD SPECIMEN Performed By: #### 5 7021-8 #### [facility] CLIA [id number] [address] [place] [address] MCV (RBC) [Entitic vol] 87.8 fL Normal 80.0-100.0 [facility] Comment on above: Order Comment: Speci men Type: BLOOD SPECIMEN Performed By: #### 5 7021-8 #### [facility] CLIA [id number] [address] [place] [address] Monocytes (Bld) [#/Vol] 0.39 10*3/uL Normal <0.87 [facility] Comment on above: Order Comment: Speci men Type: BLOOD SPECIMEN Performed By: #### 5 7021-8 #### [facility] CLIA [id number] [address] [place] [address] Monocytes/100 WBC (Bld) 6.2 % Normal [facility] Comment on above: Order Comment: Speci men Type: BLOOD SPECIMEN Performed By: #### 5 7021-8 #### [facility] CLIA [id number] [address] [place] [address] Neutrophils (Bld) [#/Vol] 4.55 10*3/uL Normal 1.45-7.50 [facility] Comment on above: Order Comment: Speci men Type: BLOOD SPECIMEN Performed By: #### 5 7021-8 #### [facility] CLIA [id number] [address] [place] [address] Neutrophils/100 WBC (Bld) 72.8 % Normal [facility] Comment on above: Order Comment: Speci men Type: BLOOD SPECIMEN Performed By: #### 5 7021-8 #### [facility] CLIA [id number] [address] [place] [address] Nucleated RBC (Bld) [#/Vol] 10*3/uL Normal <0.01 [facility] Comment on above: Order Comment: Speci men Type: BLOOD SPECIMEN Performed By: #### 5 7021-8 #### [facility] CLIA [id number] [address] [place] [address] Nucleated RBC/100 WBC (Bld) [Ratio] 0.0 /100 WBC Normal 0.0 [facility] Comment on above: Order Comment: Speci men Type: BLOOD SPECIMEN Performed By: #### 5 7021-8 #### [facility] CLIA [id number] [address] [place] [address] Platelet mean volume (Bld) [Entitic vol] 9.7 fL Normal 9.0-12.7 [facility] Comment on above: Order Comment: Speci men Type: BLOOD SPECIMEN Performed By: #### 5 7021-8 #### [facility] CLIA [id number] [address] [place] [address] Platelets (Bld) [#/Vol] 162 10*3/uL Normal 150-400 [facility] Comment on above: Order Comment: Speci men Type: BLOOD SPECIMEN Performed By: #### 5 7021-8 #### [facility] CLIA [id number] [address] [place] [address] RBC (Bld) [#/Vol] 4.49 10*6/uL Normal 4.20-6.00 [facility] Comment on above: Order Comment: Speci men Type: BLOOD SPECIMEN Performed By: #### 5 7021-8 #### [facility] CLIA [id number] [address] [place] [address] WBC (Bld) [#/Vol] 6.25 10*3/uL Normal 3.70-11.00 [facility] Comment on above: Order Comment: Speci men Type: BLOOD SPECIMEN Performed By: #### 5 7021-8 #### [facility] CLIA [id number] [address] [place] [address] [facility] CRP [Mass/Vol] 4.6 mg/dL High <0.9 [facility] Comment on above: Order Comment: Speci men Type: BLOOD SPECIMEN Performed By: #### 2 4321-2, 1987- ####[facility] [id number] [place] [address] D dimer FEU PPP-mCncon 07-30 D DIMER AGE-RELATED CUTOFF 590 ng/mL FEU Normal [facility] Comment on above: Order Comment: Speci men Type: URINE SPECIMEN Performed By: #### 2 4356-8 #### [facility] CLIA [id number] [address] [place] [address] Fibrin D-dimer FEU (PPP) [Mass/Vol] 330 ng/mL FEU Normal <500 [facility] Comment on above: Order Comment: Speci men Type: URINE SPECIMEN Performed By: #### 2 4356-8 #### [facility] CLIA [id number] [address] [place] [address] ED PROV NOTEon 07-30-2020 ED PROV NOTE HNO ID: [id number] Author: Kenny Presley DO Service: Emergency Medicine Author Type: Physician Type: ED Provider Notes Filed: 07/30/2020 3:22 AM Note Text: Signout note Patient endorsed to me by Dr. Young pending completion of laboratory studies and admission. Patient daughter currently intubated in intensive care unit with Covid. He has been staying at her house while she is in the hospital. Patient recently developed cough and presented to the ED for further evaluation. Covid noted to be positive. Laboratory studies show no evidence of leukocytosis. Chest x-ray does not show evidence of significant infiltrate. Patient initially normotensive on arrival however during ED stay became hypotensive with pressures in the 80s. Noted to have elevated creatinine compared to baseline possibly suggestive of dehydration. Patient reported decreased p.o. intake over the last several days. No noted fevers or tachycardia. No obvious source of sepsis other than his positive Covid. Patient was hydrated aggressively with 3 L of IV normal saline. After the second liter ICU consult was obtained however during the third liter of fluid patient's blood pressure improved. At this point it is felt he is stable for admission to the floor. Did not feel sepsis alert was indicated as other than his hypotension did not see any evidence of focus of infection and no other secondary signs infection such as leukocytosis fever or tachycardia. Patient seems to be responding to IV fluids. He will be admitted to [facility] for further management. Kenny Presley DO 07/30/20 0322 Normal [facility] ED PROV NOTE HNO ID: [id number] Author: Venkata Greenberg DO Service: Emergency Medicine Author Type: Resident Type: ED Provider Notes Filed: 07/30/2020 12:04 AM Note Text: -------- Attestation signed by Jacki Young MD at 07/30/2020 2:37 PM Attending Note I evaluated the patient and personally participated in the antonio components. I agree with the resident's findings and plan as documented and have discussed the case and management of the patient's care with the resident. Signature: Jacki Young MD Date: 07/30/2020 Time: 2:37 PM -------- ED Provider Note Patient Name: Velia Bagley SERVICE DATE: 07/29/20 History Patient presents with: Covid19 Concern: pt c/o covid symptoms X 2 days, pt states his daughter is in ICU vented with covid and he has been staying at her home while she's in the hospital, see travel screen for symptoms 60-year-old male presents to the emergency department secondary to cough and shortness of breath for the past 2 days. Patient suspect that he may have Covid. His daughter is currently intubated in ICU with Covid. States that his son-in-law has Covid as well. He states that his cough is nonproductive. He has cough at baseline secondary to having COPD but states that has been acutely worse. He endorses subjective fevers at home. Denies any nausea, vomiting. 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 - TIA (transient ischemic attack) 2017 2018 - UTI (urinary tract infection) PAST SURGICAL HISTORY Procedure Laterality Date - CONVERT HIP REVSN TO TOTAL HIP Right 01/16/2020 ARTHROPLASTY TOTAL HIP CONVERSION AFTER PREVIOUS HIP SURG (Right) - LAMINECTOMY,LUMBAR 03/2016 L4-L5 - PAST SURGICAL HISTORY OF Bilateral x 16 surgeries surgery to repair bone in knee cap and multiple arthroscopies and debridements - PAST SURGICAL HISTORY OF 2018 bronchoscopy 5 total - PERCUT FIX PROX/NECK FEMUR Right 10/17/2019 - REMOVAL DEEP IMPLANT Right 01/16/2020 REMOVAL HARDWARE FEMUR (Right) FAMILY HISTORY Problem Relation Age of Onset - Emphysema Mother - Blood Clots Mother required IVC filter. Multiple blood clots before (3-4). - Hypertension Mother - Heart Failure Father 72 of CHF. 2 OR before that - Parkinson?s Disease Father 68 - Prostate Cancer Brother - Parkinson?s Disease Paternal Grandfather - Diabetes No Family History Social History Tobacco Use - Smoking status: Never Smoker - Smokeless tobacco: Never Used - Tobacco comment: second hand smoke from father. Vaping Use - Vaping Use: Never used Substance and Sexual Activity - Alcohol use: No - Drug use: No - Sexual activity: Not Currently ALLERGIES Allergen Reactions - Avocado Swelling - Baclofen Other: See Comments Dizziness and full body weakness - Candasartan [Other] Rash - Chocolate Unknown - Ciprofloxacin (Bulk) Anaphylaxis - Grass Pollen Unknown - Indocin [Indomethac* Rash - Ivp Dye [Iodine] Anaphylaxis - Penicillins Rash - Lima Oil Unknown - Propranolol Other: See Comments Severe low bp and kidneys shutting down. - Sulfa (Sulfonamide * Rash, Itching - Valium [Diazepam] Other: See Comments Depression Review of Systems Constitutional: Negative for chills and fever. HENT: Negative for congestion and rhinorrhea. Respiratory: Positive for cough and shortness of breath. Cardiovascular: Negative for chest pain and leg swelling. Gastrointestinal: Negative for abdominal pain, constipation, diarrhea, nausea and vomiting. Genitourinary: Negative for dysuria and hematuria. Musculoskeletal: Negative for arthralgias and myalgias. Skin: Negative for rash and wound. Neurological: Negative for dizziness, weakness, light-headedness and headaches. Psychiatric/Behavioral: Negative for confusion and suicidal ideas. Physical Exam BP 124/101 Pulse 103 Temp (Src) 97.5 (Oral) Resp 18 Ht 5' 10 (1.78m) Wt 220 lb (99.8kg) SpO2 96% BMI 31.57 kg/(m2). O2 Therapy: Room Air Physical Exam Constitutional: Appearance: He is well-developed. HENT: Head: Normocephalic and atraumatic. Eyes: Conjunctiva/sclera: Conjunctivae normal. Pupils: Pupils are equal, round, and reactive to light. Cardiovascular: Rate and Rhythm: Normal rate and regular rhythm. Heart sounds: Normal heart sounds. Pulmonary: Effort: Pulmonary effort is normal. No respiratory distress. Breath sounds: No stridor. No wheezing or rhonchi. Comments: Lungs coarse b/l Abdominal: General: There is no distension. Palpations: Abdomen is soft. Tenderness: There is no abdominal tenderness. Musculoskeletal: General: No deformity. Cervical back: Normal range of motion and neck supple. Skin: General: Skin is warm and dry. Findings: No rash. Neurological: Mental Status: He is alert and oriented to person, place, and time. Coordination: Coordination normal. Psychiatric: Thought Content: Thought content normal. Thought content does not include homicidal or suicidal ideation. Diagnostic Testing ED Labs Ordered and Reviewed - No data to display Procedures ED Course / Clinical Impression Clinical Impressions as of Jul 30 2339 KRISTA (acute kidney injury) (HCC) COVID-19 test performed per [facility] [employer] policy for suspected COVID community exposure. MDM / Disposition / Plan Patient presents to ED due to cough and SOB. Patient is in no respiratory distress. Appears well. NAD. I am concerned about covid in this patient. EKG shows STD in anterior leads with NSR. There are no TOPHER. Initial troponin is 31. BMP shows CO2 of 16. CxR shows stable enlarged cardiac sillhouete. Patient signed out to Dr. Markham. [facility] SIGNATURE: DO Venkata Teixeira (DO Lamont Ba 07/30/20 0004 Jacki Young MD 07/30/20 1437 Normal [facility] ED PROV NOTE HNO ID: [id number] Author: Jacki Young MD Service: Emergency Medicine Author Type: Physician Type: ED Provider Notes Filed: 07/29/2020 11:39 PM Note Text: HPI 60-year-old male who presents today with chief complaint of concern for Covid as well as shortness of breath. He states his symptoms started 2 to 3 days ago. He endorses shortness of breath, cough and fever/chills. He also is complaining of fatigue and muscle aches. He does have a history of COPD. He did have positive Covid contact with his daughter. PE Gen: Awake, alert, no acute distress CV: Tachycardic Pulm: Coarse breath sounds bilaterally, has some mild dyspnea with conversation, no severe increased work of breathing Abd: Soft, nontender No lower extremity edema DDX includes but not limited to: Covid, pneumonia, COPD exacerbation, pneumothorax ED course and plan Labs, EKG and a chest x-ray were obtained. EKG shows normal sinus rhythm with ST changes anterior laterally which is more pronounced compared to prior EKG. The patient's labs show acute kidney injury. Troponin is elevated at 31. Chest x-ray shows some mild cardiac enlargement. I do feel this patient will require admission secondary to EKG changes and the acute kidney injury. The patient was signed out with further work-up pending. Attending Note I evaluated the patient and personally participated in the antonio components. I agree with the resident's findings and plan as documented and have discussed the case and management of the patient's care with the resident. Signature: Jacki Young MD Date: 07/29/2020 Time: 11:39 PM Jacki Young MD 07/29/20 2339 Normal [facility] ED Triage Noteon 07-30-2020 ED Triage Note HNO ID: [id number] Author: JEREMY Mccormack Pa-C Service: Emergency Medicine Author Type: Physician Silk Brusher Type: ED Triage Notes Filed: 07/29/2020 10:32 PM Note Text: ED INTAKE NOTE Patient Name: Velia Bagley Service Date: 07/29/20 BRIEF HPI: The patient presents to the emergency department with concern for COVID-19. Symptom onset was 2 days ago. He endorses cough, shortness of breath, chills, fever, fatigue, muscle aches, headache, rhinorrhea. He has a history of COPD. He states his daughter is currently in the ICU on a vent with coronavirus and he has been staying at her house while she is in the hospital. BRIEF EXAM: Awake and Alert LOO tachypneic and increased WOB on exam tachycardic INTAKE WORKUP: Deferred due to direct rooming SIGNATURE: Betty Mayen PA-C Normal [facility] HIGH SENSITIVITY TROPONIN To n 07-30-2020 HIGH SENSITIVITY DANIELLE 24 ng/L High <12 [facility] Comment on above: Order Comment: Speci men Type: URINE SPECIMEN Result Comment: When assessing risk for acute coronary syndromes: In patients undergoing blood draw greater than or equal to 2 hours from symptom onset, with history of very low to moderate risk and non-ischemic ECG, an initial hs-Troponin T less than 12 ng/L AND a 1 hour delta hs-Troponin T less than 3 ng/L should be considered very low risk for 30 day MACE. Performed By: #### 2 4356-8 #### [facility] CLIA [id number] [address] [place] [address] HIGH SENSITIVITY DANIELLE 29 ng/L High <12 [facility] Comment on above: Order Comment: Speci men Type: BLOOD SPECIMEN Result Comment: When assessing risk for acute coronary syndromes: In patients undergoing blood draw greater than or equal to 2 hours from symptom onset, with history of very low to moderate risk and non-ischemic ECG, an initial hs-Troponin T less than 12 ng/L AND a 1 hour delta hs-Troponin T less than 3 ng/L should be considered very low risk for 30 day MACE. Performed By: #### H STNT #### [facility] CLIA [id number] [address] [place] [address] HIGH SENSITIVITY DANIELLE 31 ng/L High <12 [facility] Comment on above: Order Comment: Speci men Type: URINE SPECIMEN Result Comment: When assessing risk for acute coronary syndromes: In patients undergoing blood draw greater than or equal to 2 hours from symptom onset, with history of very low to moderate risk and non-ischemic ECG, an initial hs-Troponin T less than 12 ng/L AND a 1 hour delta hs-Troponin T less than 3 ng/L should be considered very low risk for 30 day MACE. Performed By: #### 2 [id number] #### [facility] CLIA [id number] [address] [place] [address] HISTORY PHYSICALon HISTORY PHYSICAL HNO ID: [id number] Author: Natali Albert MD Service: General Internal Medicine Author Type: Physician Type: HANDP Filed: 07/30/2020 9:23 AM Note Text: DEPARTMENT OF HOSPITAL MEDICINE HISTORY AND PHYSICAL EXAM SERVICE DATE: 07/30/2020 SERVICE TIME: 9:08 AM Primary Care Physician: Rachel Rayo MD NIGHT AND WEEKEND COVERAGE: After 7pm, please call cross cover pager #[phone] Subjective CHIEF COMPLAINT: Cough and shortness of breath for 2 days HPI: This is a 60 year old male who presents with cough and shortness of breath for 2 days. His daughter is currently hospitalized in his intensive care unit with Covid and he has been staying at her house while she is in the hospital. He reports having fever of 102 ?F yesterday morning. He presented to the ER. He was noted to be hypotensive with a blood pressure of 60/30. He was also noted to have metabolic acidosis with VBG showing pH of 7.29. Initially, ICU was consulted. However, blood pressure improved on IV fluid and he was admitted to the floor. He reports cough and congestion. Had a fever of 102 ?F yesterday. Reports poor oral intake. Denies any diarrhea, nausea or vomiting. Denies any headache. 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 - TIA (transient ischemic attack) 2017 2017 - Urinary retention - UTI (urinary tract infection) - Vocal cord dysfunction PAST SURGICAL HISTORY Procedure Laterality Date - CONVERT HIP REVSN TO TOTAL HIP Right 01/16/2020 ARTHROPLASTY TOTAL HIP CONVERSION AFTER PREVIOUS HIP SURG (Right) - LAMINECTOMY,LUMBAR 03/2016 L4-L5 - PAST SURGICAL HISTORY OF Bilateral x 16 surgeries surgery to repair bone in knee cap and multiple arthroscopies and debridements - PAST SURGICAL HISTORY OF 2018 bronchoscopy 5 total - PERCUT FIX PROX/NECK FEMUR Right 10/17/2019 - REMOVAL DEEP IMPLANT Right 01/16/2020 REMOVAL HARDWARE FEMUR (Right) FAMILY HISTORY Problem Relation Age of Onset - Emphysema Mother - Blood Clots Mother required IVC filter. Multiple blood clots before (3-4). - Hypertension Mother - Heart Failure Father 72 of CHF. 2 OR before that - Parkinson?s Disease Father 68 - Prostate Cancer Brother - Parkinson?s Disease Paternal Grandfather - Diabetes No Family History Social History Tobacco Use - Smoking status: Never Smoker - Smokeless tobacco: Never Used - Tobacco comment: second hand smoke from father. Vaping Use - Vaping Use: Never used Substance Use Topics - Alcohol use: No - Drug use: No HOME MEDICATIONS: Prior to Admission Medications Prescriptions Last Dose Informant Patient Reported? Taking? AIMOVIG AUTOINJECTOR 140 mg/mL syringe Yes Yes Sig: Inject 140 mg subcutaneously once every month. Take on the 6th ALBUTEROL SULFATE (PROAIR HFA INHALATION) Yes No Sig: Inhale 2 Puffs as instructed every 4 hours as needed (shortness of breath). DULoxetine (CYMBALTA) 60 mg capsule Yes Yes Sig: Take 60 mg by mouth once daily. FASENRA 30 mg/mL injection Yes Yes Sig: Inject 30 mg subcutaneously every 8 weeks. Every 2 months Due september 2020 acetaminophen (TYLENOL) 325 mg tablet Yes Yes Sig: Take 650 mg by mouth every 4 hours as needed. albuterol (PROVENTIL) 2.5 mg/3 mL nebulizer solution Yes No Sig: Inhale 2.5 mg as instructed every 6 hours as needed. amitriptyline (ELAVIL) 50 mg tablet Yes Yes Sig: Take 50 mg by mouth daily at bedtime. aspirin 81 mg chewable tablet Yes No Sig: Take 81 mg by mouth twice daily. atorvastatin (LIPITOR) 40 mg tablet Yes Yes Sig: Take 40 mg by mouth once daily. budesonide-formoterol (SYMBICORT) 160-4.5 mcg/actuation inhaler Yes Yes Sig: Inhale 2 Puffs as instructed twice daily. calcitonin,salmon,synthe tic (CALCITONIN, SALMON, NASAL) Yes Yes Sig: Use 1 Inhalation in the nose once daily. (alternating nostrils every other day) celecoxib (CELEBREX) 200 mg capsule Patient Yes Yes Sig: Take 400 mg by mouth twice daily. cloNIDine HCl (CATAPRES) 0.1 mg tablet Yes Yes Sig: Take 0.1 mg by mouth twice daily before meals (0600/1600). docusate sodium (COLACE) 100 mg capsule No No Sig: Take 1 capsule by mouth twice daily as needed for Constipation. Patient not taking: Reported on 02/14/2020 fluconazole (DIFLUCAN) 100 mg tablet No No Sig: Take 1 tablet by mouth once daily. fluticasone (FLONASE) 50 mcg/actuation nasal spray No Yes Sig: Use 2 Sprays in each nostril once daily. gabapentin (NEURONTIN) 800 mg tablet Yes Yes Sig: Take 600 mg by mouth four times daily. levalbuterol (XOPENEX) 1.25 mg/3 mL nebulizer solution Yes Yes Sig: Use 1 Ampule via nebulizer every 4 hours as needed. levalbuterol tartrate HFA 45 mcg/actuation inhaler Yes Yes Sig: Inhale 1-2 Puffs as instructed every 4 hours as needed for Wheezing/Shortness of Breath. levocetirizine (XYZAL) 5 mg tablet Yes Yes Sig: Take 2.5 mg by mouth daily at bedtime. losartan (COZAAR) 100 mg tablet Yes Yes Sig: Take 100 mg by mouth once daily. magnesium hydroxide (MILK OF MAGNESIA) 400 mg/5 mL suspension Yes No Sig: Take 30mL by mouth every 2 days as needed montelukast (SINGULAIR) 10 mg tablet Yes Yes Sig: Take 10 mg by mouth daily at bedtime. omeprazole (PRILOSEC) 20 mg capsule Yes Yes Sig: Take 20 mg by mouth twice daily. potassium chloride ER (K-DUR, KLOR-CON) 20 mEq tablet Yes Yes Sig: Take 20 mEq by mouth four times daily. rizatriptan (MAXALT) 10 mg tablet Yes Yes Sig: Take 10 mg by mouth as needed for Migraine Headache (see administration instructions) (TWICE DAILY NEEDED). spironolactone (ALDACTONE) 25 mg tablet Yes Yes Sig: Take 25 mg by mouth once daily. At noon tamsulosin ER (FLOMAX) 0.4 mg No Yes Sig: Take 2 capsules by mouth at bedtime. tiotropium (SPIRIVA) 18 mcg inhalation capsule Yes No Sig: Inhale 18 mcg as instructed once daily. topiramate (TOPAMAX) 100 mg tablet Yes Yes Sig: Take 100 mg by mouth four times daily. 200 mg in morning, 100 mg at noon, 200 mg in the evening, 100 mg at bedtime - 600 mg total daily venlafaxine ER (EFFEXOR XR) 75 mg 24 hr capsule Yes Yes Sig: Take 75 mg by mouth once daily. verapamil SR (CALAN SR, ISOPTIN SR) 120 mg CR tablet No No Sig: Take 1 tablet by mouth once daily. Facility-Administered Medications: None ALLERGIES Allergen Reactions - Avocado Swelling - Baclofen Other: See Comments Dizziness and full body weakness - Candasartan [Other] Rash - Chocolate Unknown - Ciprofloxacin (Bulk) Anaphylaxis - Grass Pollen Unknown - Indocin [Indomethac* Rash - Ivp Dye [Iodine] Anaphylaxis - Penicillins Rash - Lima Oil Unknown - Propranolol Other: See Comments Severe low bp and kidneys shutting down. - Sulfa (Sulfonamide * Rash, Itching - Valium [Diazepam] Other: See Comments Depression REVIEW OF SYSTEM: All ROS are negative except those noted in HPI. Objective PHYSICAL EXAM: BP 115/52 Pulse 70 Temp (Src) 97.2 (Oral) Resp 18 Ht 5' 10 (1.78m) Wt 220 lb (99.8kg) SpO2 96% BMI 31.57 kg/(m2). O2 Therapy: Room Air GENERAL: Alert, no distress, cooperative, NAD SKIN: Warm, dry intact, no open lesions, no rashes HEAD/SINUSES: Normocephalic, atraumatic, oral mucosa moist EYES: PERRLA, EOMI NECK: No jugulovenous distention, Supple, no adenopathy LUNGS: Lungs clear to auscultation, no wheezes, ronchi, or rales CARDIAC: RRR, Normal S1 and S2; no rubs, murmurs, or gallops ABDOMEN: Abdomen soft, non-tender, BS normal, No masses or organomegaly EXTREMITIES: Extremities normal, no deformities, edema, clubbing or skin discoloration. NEURO: Sensation grossly intact, Cranial nerves II-XII intact, moves all 4 extremities, speech was clear and coherent - no chronic guthrie DATA: Diagnostic tests reviewed for today's visit: Most recent labs and imaging results. CBC: Recent Labs 07/30/20 0803 WBC 5.52 RBC 4.25 HB 11.3* HCT 36.9* PLT 124* MCV 86.8 MCH 26.6 MPV 9.5 Coags: Recent Labs 07/30/20 0803 INR 1.1 BMP: Recent Labs 07/30/20 0803 NA 137 K 3.9 CHLOR 111* CO2 16* BUN 19 CREAT 1.73* GLUC 102* CMP: Recent Labs 07/30/20 0803 NA 137 K 3.9 CHLOR 111* CO2 16* BUN 19 CREAT 1.73* GLUC 102* CA 7.8* ANION 10 Renal Panel: Recent Labs 07/30/20 0803 CREAT 1.73* BUN 19 GLUC 102* CA 7.8* CHLOR 111* K 3.9 CO2 16* NA 137 Heme: No results for input(s): RETICP, ABSRETIC, LD, BRIAN, FE, TIBC, TRANSFERSAT in the last 24 hours. Estimated Creatinine Clearance: 54.4 mL/min (A) (based on SCr of 1.73 mg/dL (H)). Assessment/Plan 1. Hypotension ?He has a history of hypertension and is on antihypertensives ?Hypotension improved with IV fluid hydration ?Continue to monitor blood pressure 2. Acute kidney injury ?Likely secondary to hypotension and poor renal perfusion ?Monitor with IV fluid hydration 3. COVID-19 ?Currently oxygenating more than 92% on room air ?Check inflammatory markers ?Continue to monitor 4. Non-anion gap metabolic acidosis ?Check blood cultures and urinalysis 5. History of migraine headache ?Continue home medication?will reduce dose of ?Decrease dose of gabapentin and Topamax, adjusted for his renal function VTE Prophylaxis: Lovenox 40mg Sub Q Daily Lines, Drains, and Airways Line Peripheral 07/29/202233 Short Right Antecubital 18 Gauge <1 day Plan of care discussed with: Patient SIGNATURE: Natali Albert MD PATIENT NAME: Velia Bagley DATE: July 30, 2020 TIME: 9:08 AM PAGER/CONTACT Disclaimer: Portions of this note may have been generated using [employer] voice recognition software. Reasonable efforts were made to correct any dictation errors that resulted due to the programming of this software but some may still be present. [facility] HISTORY PHYSICAL HNO ID: [id number] Author: Rich (Betty) Luis Service: Hospital Medicine Author Type: Resident Type: HANDP Filed: 07/30/2020 4:26 AM Note Text: -------- Attestation signed by Saw Ashton at 07/30/2020 4:37 AM (Updated) [facility] STAFF PHYSICIAN NOTE OF PERSONAL INVOLVEMENT IN CARE I have reviewed the consult note obtained and documented by the resident and I personally participated in the antonio components. I have discussed the case and management of the patient's care. The following comments revise or confirm relevant antonio components of the note. 60/M with dyspnea and dry cough, daughter with covid currently under treatment in the ICU. H/o COPD, on home inhalers. However, never smoker with exposure to second hand smoke and spirometry in 2018 restrictive pattern with TLC 66%. Was hypotensive on presentation but BP responded to fluid resuscitation. Spo2 high 90s on room air. CXR shows no acute infiltrates Covid positive DANIELLE 24 Cr 1.79 7.291/33.3/33.9 IMPRESSION: Hypovolemic hypotension, resolved with fluid resuscitation Covid 19 infection/pneumonia Lung restriction on PFT 2018, on inhalers Second hand smoke exposure NAGMA KRISTA PLAN: Recommend steroids Remdesivir if he desaturates Cautious hydration Monitor UOP/Cr DVT px Admit to floor Plan of care discussed with: ICU Team. SIGNATURE: Saw Ashton MD [facility] PAGER:[phone] DATE of SERVICE: July 30, 2020 TIME of SERVICE: 4:37 AM -------- MICU CONSULT HISTORY AND PHYSICAL NOTE Admission Date: 07/29/2020 Time: 2:00 AM AGE: [age] year old LOS: 0 days Reason for ICU admission: Hypotension in the setting of Covid pneumonia Chief complaint: Cough and shortness of breath for the past 2 days History of present illness: 60-year-old male with extensive past medical history including hypertension, COPD (FVC is 2.41, 51% predicted. FEV1 is2.16, 60% predicted. Both are reduced) presents to the ED with a chief complaint of cough and shortness of breath for the past 2 days. The patient admits to having recent close contact with Covid pneumonia patient. In the ED COVID-19 test was positive. Vitals are stable with the exception of blood pressure at 87/54 with a heart rate of 58. CBC unremarkable without white blood count. Outstanding lab results include hypokalemia at 3.5, bicarb 16, creatinine 1.79 (baseline 0.85), glucose 169, DANIELLE trending down 31 to 29, VBG indicative of normal anion gap metabolic acidosis. Chest x-ray: Enlarged cardiac silhouette. ER/ hospital course: In the ED the patient received a 3 L bolus of normal saline. Review of Systems Positive for fever, shortness of breath, nonproductive cough, orthopnea, denies dysuria, urinary frequency or urgency. PAST MEDICAL HISTORY Diagnosis Date - Acute DVT of left tibial vein ([facility]) prior to 2016 low dose ASA - Carpal tunnel syndrome, bilateral - Closed displaced fracture of right femoral neck ([facility]) - COPD (chronic obstructive pulmonary disease) (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 - TIA (transient ischemic attack) 2016 2017 - Urinary retention - UTI (urinary tract infection) - Vocal cord dysfunction PAST SURGICAL HISTORY Procedure Laterality Date - CONVERT HIP REVSN TO TOTAL HIP Right 01/16/2020 ARTHROPLASTY TOTAL HIP CONVERSION AFTER PREVIOUS HIP SURG (Right) - LAMINECTOMY,LUMBAR 03/2016 L4-L5 - PAST SURGICAL HISTORY OF Bilateral x 16 surgeries surgery to repair bone in knee cap and multiple arthroscopies and debridements - PAST SURGICAL HISTORY OF 2018 bronchoscopy 5 total - PERCUT FIX PROX/NECK FEMUR Right 10/17/2019 - REMOVAL DEEP IMPLANT Right 01/16/2020 REMOVAL HARDWARE FEMUR (Right) FAMILY HISTORY Problem Relation Age of Onset - Emphysema Mother - Blood Clots Mother required IVC filter. Multiple blood clots before (3-4). - Hypertension Mother - Heart Failure Father 72 of CHF. 2 OR before that - Parkinson?s Disease Father 68 - Prostate Cancer Brother - Parkinson?s Disease Paternal Grandfather - Diabetes No Family History Social History Tobacco Use - Smoking status: Never Smoker - Smokeless tobacco: Never Used - Tobacco comment: second hand smoke from father. Vaping Use - Vaping Use: Never used Substance Use Topics - Alcohol use: No - Drug use: No No current facility-administered medications on file prior to encounter. Current Outpatient Medications on File Prior to Encounter Medication Sig - fluconazole (DIFLUCAN) 100 mg tablet Take 1 tablet by mouth once daily. - acetaminophen (TYLENOL) 325 mg tablet Take 650 mg by mouth every 4 hours as needed. - magnesium hydroxide (MILK OF MAGNESIA) 400 mg/5 mL suspension Take 30mL by mouth every 2 days as needed - albuterol (PROVENTIL) 2.5 mg/3 mL nebulizer solution Inhale 2.5 mg as instructed every 6 hours as needed. - verapamil SR (CALAN SR, ISOPTIN SR) 120 mg CR tablet Take 1 tablet by mouth once daily. - docusate sodium (COLACE) 100 mg capsule Take 1 capsule by mouth twice daily as needed for Constipation. (Patient not taking: Reported on 02/14/2020 ) - aspirin 81 mg chewable tablet Take 81 mg by mouth twice daily. - omeprazole (PRILOSEC) 20 mg capsule Take 20 mg by mouth twice daily. - topiramate (TOPAMAX) 100 mg tablet Take 100 mg by mouth four times daily. 200 mg in morning, 100 mg at noon, 200 mg in the evening, 100 mg at bedtime - 600 mg total daily - AIMOVIG AUTOINJECTOR 140 mg/mL syringe Inject 140 mg subcutaneously once every month. - venlafaxine ER (EFFEXOR XR) 75 mg 24 hr capsule Take 75 mg by mouth once daily. - levocetirizine (XYZAL) 5 mg tablet Take 2.5 mg by mouth daily at bedtime. - tiotropium (SPIRIVA) 18 mcg inhalation capsule Inhale 18 mcg as instructed once daily. - levalbuterol (XOPENEX) 1.25 mg/3 mL nebulizer solution Use 1 Ampule via nebulizer every 4 hours as needed. - calcitonin,salmon,synthe tic (CALCITONIN, SALMON, NASAL) Use 1 Inhalation in the nose once daily. (alternating nostrils every other day) - tamsulosin ER (FLOMAX) 0.4 mg Take 2 capsules by mouth at bedtime. - DULoxetine (CYMBALTA) 60 mg capsule Take 60 mg by mouth once daily. - cloNIDine HCl (CATAPRES) 0.1 mg tablet Take 0.1 mg by mouth twice daily before meals (0600/1600). - nitrofurantoin monohydrate and macrocrystal (MACROBID) 100 mg capsule TAKE 1 CAPSULE BY MOUTH EVERY DAY (Patient not taking: Reported on 03/13/2020 ) - amitriptyline (ELAVIL) 50 mg tablet Take 50 mg by mouth daily at bedtime. - atorvastatin (LIPITOR) 40 mg tablet Take 40 mg by mouth once daily. - FASENRA 30 mg/mL injection Inject 30 mg subcutaneously every 8 weeks. Next one due 11/15/19 - budesonide-formoterol (SYMBICORT) 160-4.5 mcg/actuation inhaler Inhale 2 Puffs as instructed twice daily. - gabapentin (NEURONTIN) 800 mg tablet Take 800 mg by mouth four times daily. - losartan (COZAAR) 100 mg tablet Take 100 mg by mouth once daily. - rizatriptan (MAXALT) 10 mg tablet Take 10 mg by mouth as needed for Migraine Headache (see administration instructions) (TWICE DAILY NEEDED). - fluticasone (FLONASE) 50 mcg/actuation nasal spray Use 2 Sprays in each nostril once daily. - montelukast (SINGULAIR) 10 mg tablet Take 10 mg by mouth daily at bedtime. - potassium chloride ER (K-DUR, KLOR-CON) 20 mEq tablet Take 20 mEq by mouth four times daily. - spironolactone (ALDACTONE) 25 mg tablet Take 25 mg by mouth once daily. - celecoxib (CELEBREX) 200 mg capsule Take 400 mg by mouth twice daily. - ALBUTEROL SULFATE (PROAIR HFA INHALATION) Inhale 2 Puffs as instructed every 4 hours as needed (shortness of breath). ALLERGIES Allergen Reactions - Avocado Swelling - Baclofen Other: See Comments Dizziness and full body weakness - Candasartan [Other] Rash - Chocolate Unknown - Ciprofloxacin (Bulk) Anaphylaxis - Grass Pollen Unknown - Indocin [Indomethac* Rash - Ivp Dye [Iodine] Anaphylaxis - Penicillins Rash - Lima Oil Unknown - Propranolol Other: See Comments Severe low bp and kidneys shutting down. - Sulfa (Sulfonamide * Rash, Itching - Valium [Diazepam] Other: See Comments Depression PHYSICAL EXAM VITAL SIGNS (last 24hrs min/max): Temp Av.4 ?C (97.5 ?F) Min: 36.4 ?C (97.5 ?F) Max: 36.4 ?C (97.5 ?F) Pulse Av.6 Min: 58 Max: 103 Cuff BP Min: 60/30 Max: 124/101 Pain Level: 0 24 hour Intake AND Output: Intake/Output Summary (Last 24 hours) at 07/30/2020 0200 Last data filed at 07/30/2020 0146 Gross per 24 hour Intake 2000 ml Output ? Net 2000 ml WARDROBE CUSTODIAN: Alert and oriented Awake, oriented RASS: 0 Oral Mucosa: Dry mucous membranes Feeding Tube: No Eyes: PERRLA Neck: Unremarkable; No adenopathy or JVD Cardiovascular: Regular rate and rhythm. No murmur or galops Respiratory: Diminished breath sounds. Difficult to auscultate due to continuous cough with inspiration. Abdomen: Soft, Nontender and Positive bowel sounds Extremities: Edema- No Peripheral Pulses- Present all extremities Capillary Refill- less than 3 seconds Skin: Abnormalities- dry, positive turgur Data: BLOOD GAS: Recent Labs 07/29/20 2351 VPH 7.291* VPC2 33.3* VPO2C 33.9 CBC: Recent Labs 07/29/20 2243 WBC 6.25 HB 12.1* HCT 39.4 PLT 162 MCV 87.8 RDWCV 16.5* NEUTP 72.8 ABSNEUT 4.55 LYMPHP 20.3 MONOP 6.2 COAG: No results for input(s): APTT, INR in the last 168 hours. BMP: Recent Labs 07/29/20 2243 GLUC 169* NA 136 K 3.5* CHLOR 106* CO2 16* ANION 14 BUN 18 CREAT 1.79* CHEM: Recent Labs 07/29/20 2243 CA 8.3* HEPATIC: No results for input(s): ALKPHOS, ALT, AST, TBILI, LIPASE in the last 168 hours. URINALYSIS:No results for input(s): PH, SPGR, UGLUC, UBILI, UKET, UHB, UPROT, UROBIL, UWBC, SSA in the last 168 hours. Invalid input(s): NITR CARDIAC: No results for input(s): CKTEST, CKMB, CKMBP, TROPT, PBNP in the last 168 hours. EKG RESULTS: ACTIVE PROBLEM LIST Variants of Migraine, Not Elsewhere Classified, With Intractable Migraine, So Stated, Without Mention of Status Migrainosus Carpal Tunnel Syndrome Cervicalgia Myalgia and Myositis, Unspecified Iron Deficiency Anemia Weakness Lymphadenopathy Closed Displaced Fracture of Right Femoral Neck (Hcc) Tia (Transient Ischemic Attack) Htn (Hypertension) Gerd (Gastroesophageal Reflux Disease) Uti (Urinary Tract Infection) ASSESSMENT: Hypotension (resolved) Covid - 19 infection Hx of COPD KRISTA PLAN: Hypontension (resolved) - 87/ 54 resolved with fluid resuscitation - Lactate 2 -> 0.7 - S/P 3 L bolus in the ED in the Stop IV fluids and hydrate as needed - Recent BP 107/82 - Monitor BP keep MAP > 70 and systolic BP >90 and start vasopressors if MAP <65 -Patient stable for Regular floor nursing admission. COVID-19 PNA with history of COPD - Lactate at 2.0 decreased to 0.7 - Imaging: CXR shows mild cardiac silhouette - No need for abx or remdesivir at the moment - Start dexamthasone and continue home bronchodilator. Consider dounebs. Non Anion gap metabolic acidosis - VBG: PH 7.291 and HCO3: 16 with no anion gap - order Albumin correct of Anion gap - Appropriate compensation is PCO2 = 32+- 2 (33.3 on vbg) KRISTA - Likely prerenal in the setting of dehydration and reduced PO intake - Rule out obstruction with renal bladder US - Order urine Na+ and Urine Cret - Order UA. And urine culture pending results - Repeat BMP following hydration and monitor renal function EKG abnormality - Does not complain of chest pain - trop 29 downtrend to 24. Code status: TBD SIGNATURE: Rich SmithDO DATE: July 30, 2020 TIME: 2:00 AM PAGER/CONTACT #: [phone] [facility] NURSING PROGon 07-30-2020 NURSING PROG HNO ID: [id number] Author: Yuko (Rn) BULL Marques Service: ? Author Type: Registered Nurse Type: Nursing Progress Note Filed: 07/30/2020 9:48 AM Note Text: Ambulatory pulse ox 0940: pt ambulated back and forth in room three times. Patient oxygen saturation started at 93% resting and increased to 99% after ambulation on RA. [facility] PROGRESSon 07-30-2020 PROGRESS HNO ID: [id number] Author: Kenny Presley DO Service: Emergency Medicine Author Type: Physician Type: Progress Notes Filed: 08/05/2020 10:33 AM Note Text: ED Resident Continuation of Care Note July 30, 2020 2:19 AM Velia Bagley was endorsed to me by Dr. Venkata Greenberg. Briefly, the patient initially presented to the ED for shortness of breath. Signout note reviewed EKG performed due to shortness of breath and demonstrating ST segment depression in anterior leads. Chest x-ray performed demonstrating mild stable cardiac silhouette enlargement. BMP drawn and demonstrating acute kidney injury with creatinine of 1.79 with baseline around 0.7. Patient blood pressure becoming hypotensive while in ED with value of 60/30. VBG drawn and with acidosis with pH of 7.29 and with bicarb with value of 15. Patient likely having acidosis secondary to KRISTA. Lactic acid at this time with value of 2. Patient started on 1 L normal saline bolus. Initial troponin with value of 31. Second troponin value 29. Troponins drawn and likely elevated secondary to KRISTA.Rapid coronavirus performed and positive. CBC drawn and unremarkable. Patient blood pressure improving but still hypotensive after 1 L normal saline bolus. Patient started on another 1 L negative saline bolus. Repeat lactic acid drawn after second liter normal saline bolus and improved to 0.7. Patient's blood pressure improved, but still in high 80s systolic. Medical ICU consulted. Patient started on third liter normal saline bolus. Patient blood pressure improving with blood pressure of 120/70. Patient stable for floor at this timed. [facility] called and patient admitted to regular nursing floor. Silas Markham MD Normal [facility] PT Pnl PPPon 07-30-2020 INR Coag (PPP) [Relative time] 1.1 {INR} Normal 0.9-1.3 [facility] Comment on above: Order Comment: Speci men Type: URINE SPECIMEN Result Comment: Danielle min K Antagonist (VKA) Therapeutic Range: INR 2 to 3 (Target INR of 2.5) Note: For patients treated with VKA drugs, such as warfarin, the [employer] 2012 Guideline recommends a therapeutic INR range of 2 to 3 (target INR of 2.5). This recommendation includes high-risk patients with antiphospholipid syndrome with previous arterial or venous thromboembolism, current-generation mechanical or bioprosthetic aortic heart valve replacement. Note: Patients with mechanical aortic valve replacement and additional risk factors for thromboembolic events (atrial fibrillation, previous thromboembolism, LV dysfunction, hypercoagulable conditions) or an older generation mechanical AVR (i.e., ball in-Cage) or any mechanical MVR should have a INR therapeutic range of 2.5 to 3.5 (target INR of 3). Kevin MCCORMICK, et al. Chest 2012, 141:7S-47S Jimbo RA, et al. [facility] 2017, 70: 252-289 Performed By: #### 2 4356-8 #### [facility] CLIA [id number] [address] [place] [address] PT Coag (PPP) [Time] 10.9 s Normal 9.7-13.0 [facility] Comment on above: Order Comment: Speci men Type: URINE SPECIMEN Performed By: #### 2 4356-8 #### [facility] CLIA [id number] [address] [place] [address] SARS-CoV-2 RNA Resp Ql EMMY+p robeon 07-30-2020 SARS-CoV-2 RNA Resp Ql EMMY+probe COVID 19 RESULT: SARS-CoV-2 (Agent of COVID-19) Detected by PCR. This test has been authorized by FDA under an Emergency Use Authorization (EUA) Normal [facility] Comment on above: Performed By: #### 9 4500-6 ####[facility] [id number] [place] [address] US KIDNEY/BLADDERon 07-31-19 21 US KIDNEY/BLADDER Final Report DATE OF EXAM: Jul 30 2020 3:05PM [facility] 105 - US KIDNEY/BLADDER / PROCEDURE REASON: Renal failure, acute (kidney injury) Physician Interpretation EXAMINATION: RENAL ULTRASOUND CLINICAL HISTORY: Acute renal failure TECHNIQUE: Sonography of the kidneys and urinary bladder was performed. Images were obtained and stored in a permanent archive. MQ: UR_1 COMPARISON: None RESULT: Right Kidney: -Renal length: 11.7 cm -Parenchyma: Normal parenchymal echogenicity. Lobulated appearance of the kidney likely related to scarring. -Collecting system: No hydronephrosis. -Calculus: No echogenic, shadowing calculus. -Lesion: None. Left Kidney: -Renal length: 12.0 cm -Parenchyma: Normal parenchymal echogenicity. Lobulated appearance of the kidney, likely related to scarring. -Collecting system: No hydronephrosis. -Calculus: No echogenic, shadowing calculus. -Lesion: None. Bladder: No mass. There was a urinary bladder volume of approximately 290 cc. The patient deferred voiding as he stated he voided prior to the study. IMPRESSION: 1. Normal size and echogenicity the kidneys. 2. Lobular contour of each kidney, likely related to parenchymal scarring. Criminalist Technician: PSCB Transcribe Date/Time: Jul 30 2020 9:47P Dictated by : RONI MARVIN MD This examination was interpreted and the report reviewed and electronically signed by: RONI MARVIN MD on Jul 30 2020 9:50PM EST Normal [facility] Urinalysis complete pnl Uron 07-30-2020 Bacteria LM.HPF (Urine sed) [#/Area] None Seen Normal None Seen [facility] Comment on above: Order Comment: Speci men Type: URINE SPECIMEN Performed By: #### 2 4356-8 #### [facility] CLIA [id number] [address] [place] [address] Bilirubin Ql (U) Negative Normal Negative [facility] Comment on above: Order Comment: Speci men Type: URINE SPECIMEN Performed By: #### 2 4356-8 #### [facility] CLIA [id number] [address] [place] [address] Clarity (Unsp spec) Clear Normal Clear [facility] Comment on above: Order Comment: Speci men Type: URINE SPECIMEN Performed By: #### 2 4356-8 #### [facility] CLIA [id number] [address] [place] [address] Color (U) Yellow Normal Yellow [facility] Comment on above: Order Comment: Speci men Type: URINE SPECIMEN Performed By: #### 2 4356-8 #### [facility] CLIA [id number] [address] [place] [address] Epithelial cells LM.HPF (Urine sed) [#/Area] 1.7 /[HPF] Normal [facility] Comment on above: Order Comment: Speci men Type: URINE SPECIMEN Performed By: #### 2 4356-8 #### [facility] CLIA [id number] [address] [place] [address] Glucose Test strip (U) [Mass/Vol] Negative Normal Negative [facility] Comment on above: Order Comment: Speci men Type: URINE SPECIMEN Performed By: #### 2 4356-8 #### [facility] CLIA [id number] [address] [place] [address] Hemoglobin Ql (U) Negative Normal Negative [facility] Comment on above: Order Comment: Speci men Type: URINE SPECIMEN Performed By: #### 2 4356-8 #### [facility] CLIA [id number] [address] [place] [address] Hyaline casts (Urine sed) [#/Area] 1-3 /LPF Abnormal 0 /LPF [facility] Comment on above: Order Comment: Speci men Type: URINE SPECIMEN Performed By: #### 2 4356-8 #### [facility] CLIA [id number] [address] [place] [address] Ketones Ql (U) Negative Normal Negative [facility] Comment on above: Order Comment: Speci men Type: URINE SPECIMEN Performed By: #### 2 4356-8 #### [facility] CLIA [id number] [address] [place] [address] Leukocyte esterase Test strip Ql (U) Negative Normal Negative [facility] Comment on above: Order Comment: Speci men Type: URINE SPECIMEN Performed By: #### 2 4356-8 #### [facility] CLIA [id number] [address] [place] [address] Nitrite Ql (U) Negative Normal Negative [facility] Comment on above: Order Comment: Speci men Type: URINE SPECIMEN Performed By: #### 2 4356-8 #### [facility] CLIA [id number] [address] [place] [address] pH (U) 5.5 [pH] Normal 5.0-8.0 [facility] Comment on above: Order Comment: Speci men Type: URINE SPECIMEN Performed By: #### 2 4356-8 #### [facility] CLIA [id number] [address] [place] [address] Protein (U) [Mass/Vol] Negative Normal Negative [facility] Comment on above: Order Comment: Speci men Type: URINE SPECIMEN Performed By: #### 2 4356-8 #### [facility] CLIA [id number] [address] [place] [address] RBC LM.HPF (Urine sed) [#/Area] 0-3 /HPF Normal 0-3 /HPF [facility] Comment on above: Order Comment: Speci men Type: URINE SPECIMEN Performed By: #### 2 4356-8 #### [facility] CLIA [id number] [address] [place] [address] Specific gravity (U) [Rel density] 1.006 Normal 1.005-1.030 [facility] Comment on above: Order Comment: Speci men Type: URINE SPECIMEN Performed By: #### 2 4356-8 #### [facility] CLIA [id number] [address] [place] [address] Urobilinogen Test strip Ql (U) 1.0 EU/dL Normal 0.2-1.0 EU/dL [facility] Comment on above: Order Comment: Speci men Type: URINE SPECIMEN Performed By: #### 2 4356-8 #### [facility] CLIA [id number] [address] [place] [address] WBC LM.HPF (Urine sed) [#/Area] 0-5 /HPF Normal 0-5 /HPF [facility] Comment on above: Order Comment: Speci men Type: URINE SPECIMEN Performed By: #### 2 4356-8 #### [facility] CLIA [id number] [address] [place] [id number] XR CHEST 1V FRONTALon 2020 XR CHEST 1V FRONTAL Final Report DATE OF EXAM: Jul 29 2020 10:54PM [facility] [id number] - XR CHEST 1V FRONTAL / PROCEDURE REASON: Chest pain or SOB, pleurisy or effusion suspected Physician Interpretation EXAMINATION: CHEST RADIOGRAPH (SINGLE VIEW AP OR PA) CLINICAL HISTORY: Chest pain MQ: XC1_5 Comparison: 01/26/2020 RESULT: Lines, tubes, and devices: None. Lungs and pleura: No consolidation. No lung mass. No pleural effusion. Cardiomediastinal silhouette: Stable mild cardiac silhouette enlargement. Other: No bony abnormalities. IMPRESSION: Stable mild cardiac silhouette enlargement. Criminalist Technician: PSCB Transcribe Date/Time: Jul 29 2020 11:28P Dictated by : MANUELA BOJORQUEZ MD This examination was interpreted and the report reviewed and electronically signed by: MANUELA BOJORQUEZ MD on Jul 29 2020 11:29PM EST Normal [facility] CNOVon 04-17-2020 CNOV Office Visit (AGPOB1 ) -------- VELIA BAGLEY ([id number]) 1960 M Date Time Provider Department 04/17/20 1:15 PM HIRAL CASTANEDA During your visit today, we recorded the following information about you: Respiration Weight Height 20/minute 89.8 kg 1.778 m Hiral Castaneda MD 04/17/2020 1:28 PM Signed [facility] CC: Follow-up visit after total hip replacement HPI: Mr. Bagley is here today for his 3 month clinical follow up status post right total hip replacement for failed ORIF hip fracture. Since his last visit Mr. Bagley conveys the interval has been without complications. 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 - TIA (transient ischemic attack) 2017 2017 - UTI (urinary tract infection) PAST SURGICAL HISTORY Procedure Laterality Date - CONVERT HIP REVSN TO TOTAL HIP Right 01/16/2020 ARTHROPLASTY TOTAL HIP CONVERSION AFTER PREVIOUS HIP SURG (Right) - LAMINECTOMY,LUMBAR 03/2016 L4-L5 - PAST SURGICAL HISTORY OF Bilateral x 16 surgeries surgery to repair bone in knee cap and multiple arthroscopies and debridements - PAST SURGICAL HISTORY OF 2018 bronchoscopy 5 total - PERCUT FIX PROX/NECK FEMUR Right 10/17/2019 - REMOVAL DEEP IMPLANT Right 01/16/2020 REMOVAL HARDWARE FEMUR (Right) Current Outpatient Medications Medication Sig Dispense Refill - fluconazole (DIFLUCAN) 100 mg tablet Take 1 tablet by mouth once daily. 14 tablet 0 - acetaminophen (TYLENOL) 325 mg tablet Take 650 mg by mouth every 4 hours as needed. - magnesium hydroxide (MILK OF MAGNESIA) 400 mg/5 mL suspension Take 30mL by mouth every 2 days as needed - albuterol (PROVENTIL) 2.5 mg/3 mL nebulizer solution Inhale 2.5 mg as instructed every 6 hours as needed. - verapamil SR (CALAN SR, ISOPTIN SR) 120 mg CR tablet Take 1 tablet by mouth once daily. - aspirin 81 mg chewable tablet Take 81 mg by mouth twice daily. - omeprazole (PRILOSEC) 20 mg capsule Take 20 mg by mouth twice daily. - topiramate (TOPAMAX) 100 mg tablet Take 100 mg by mouth four times daily. 200 mg in morning, 100 mg at noon, 200 mg in the evening, 100 mg at bedtime - 600 mg total daily - AIMOVIG AUTOINJECTOR 140 mg/mL syringe Inject 140 mg subcutaneously once every month. - venlafaxine ER (EFFEXOR XR) 75 mg 24 hr capsule Take 75 mg by mouth once daily. - levocetirizine (XYZAL) 5 mg tablet Take 2.5 mg by mouth daily at bedtime. - tiotropium (SPIRIVA) 18 mcg inhalation capsule Inhale 18 mcg as instructed once daily. - levalbuterol (XOPENEX) 1.25 mg/3 mL nebulizer solution Use 1 Ampule via nebulizer every 4 hours as needed. - calcitonin,salmon,synthe tic (CALCITONIN, SALMON, NASAL) Use 1 Inhalation in the nose once daily. (alternating nostrils every other day) - tamsulosin ER (FLOMAX) 0.4 mg Take 2 capsules by mouth at bedtime. 180 capsule 3 - DULoxetine (CYMBALTA) 60 mg capsule Take 60 mg by mouth once daily. - cloNIDine HCl (CATAPRES) 0.1 mg tablet Take 0.1 mg by mouth twice daily before meals (0600/1600). - amitriptyline (ELAVIL) 50 mg tablet Take 50 mg by mouth daily at bedtime. - atorvastatin (LIPITOR) 40 mg tablet Take 40 mg by mouth once daily. - FASENRA 30 mg/mL injection Inject 30 mg subcutaneously every 8 weeks. Next one due 11/15/19 - budesonide-formoterol (SYMBICORT) 160-4.5 mcg/actuation inhaler Inhale 2 Puffs as instructed twice daily. - gabapentin (NEURONTIN) 800 mg tablet Take 800 mg by mouth four times daily. - losartan (COZAAR) 100 mg tablet Take 100 mg by mouth once daily. - rizatriptan (MAXALT) 10 mg tablet Take 10 mg by mouth as needed for Migraine Headache (see administration instructions) (TWICE DAILY NEEDED). - fluticasone (FLONASE) 50 mcg/actuation nasal spray Use 2 Sprays in each nostril once daily. 1 Bottle 11 - montelukast (SINGULAIR) 10 mg tablet Take 10 mg by mouth daily at bedtime. - potassium chloride ER (K-DUR, KLOR-CON) 20 mEq tablet Take 20 mEq by mouth four times daily. - spironolactone (ALDACTONE) 25 mg tablet Take 25 mg by mouth once daily. - celecoxib (CELEBREX) 200 mg capsule Take 400 mg by mouth twice daily. - ALBUTEROL SULFATE (PROAIR HFA INHALATION) Inhale 2 Puffs as instructed every 4 hours as needed (shortness of breath). - docusate sodium (COLACE) 100 mg capsule Take 1 capsule by mouth twice daily as needed for Constipation. (Patient not taking: Reported on 02/14/2020 ) 0 - nitrofurantoin monohydrate and macrocrystal (MACROBID) 100 mg capsule TAKE 1 CAPSULE BY MOUTH EVERY DAY (Patient not taking: Reported on 03/13/2020 ) 30 capsule 10 No current facility-administered medications for this visit. ALLERGIES Allergen Reactions - Avocado Swelling - Baclofen Other: See Comments Dizziness and full body weakness - Candasartan [Other] Rash - Chocolate Unknown - Ciprofloxacin (Bulk) Anaphylaxis - Grass Pollen Unknown - Indocin [Indomethac* Rash - Ivp Dye [Iodine] Anaphylaxis - Penicillins Rash - Lima Oil Unknown - Propranolol Other: See Comments Severe low bp and kidneys shutting down. - Sulfa (Sulfonamide * Rash, Itching - Valium [Diazepam] Other: See Comments Depression FAMILY HISTORY Problem Relation Age of Onset - Emphysema Mother - Blood Clots Mother required IVC filter. Multiple blood clots before (3-4). - Hypertension Mother - Heart Failure Father 72 of CHF. 2 OR before that - Parkinson?s Disease Father 68 - Prostate Cancer Brother - Parkinson?s Disease Paternal Grandfather - Diabetes No Family History Social History Tobacco Use - Smoking status: Never Smoker - Smokeless tobacco: Never Used - Tobacco comment: second hand smoke from father. Substance Use Topics - Alcohol use: No - Drug use: No REVIEW OF SYSTEMS: GENERAL: Well developed, well nourished. No acute distress PAIN: Negative for pain, history of chronic pain or current treatment for chronic pain conditions CARDIOVASCULAR: HTN MSK: Negative for joint pain, swelling, back pain, muscle pain. SKIN: Negative for lesions, rash, itching, metal sensitivity NEURO: Negative for seizure, trauma, numbness/tingling of extremities. ENDOCRINE: Negative for Diabetes Type 1 and Type 2 HEMATOLOGY: Hx of DVT EXAMINATION: GENERAL: normal body habitus and no apparent distress CV: No extremity swelling, varices, edema, pallor, erythema Mr. Bagley has no difficulty arising out of a chair and has no difficulty ambulating in the exam room. his gait was normal. Wound remains well-healed Both lower extremities were neurovascularly intact, has no evidence of cellulitis, and has no distal swelling. X-RAYS: X-ray Interpretation: We ordered, obtained and reviewed an AP pelvis radiograph for follow-up of a right total hip arthroplasty. Compared to views of 02/28/2020 shows a BIOMET SOLOMON cementless right total hip in good position without loosening or complication. Impression: Stable postop follow up cementless right total hip. ASSESSMENT: S/P right total hip arthroplasty, significantly improved from pre-operative state and doing well and back to an active lifestyle PLAN: Increase activities as tolerated, Avoid impact loading activities. Follow up will be in 9 months. If there are any questions or problems, patient instructed to call the office. Hiral Castaneda MD Referring Provider: SELF [200] Allergies As of Date: 04/17/2020 Noted Allergy Reaction AVOCADO 04/26/2018 7 - Swelling BACLOFEN 02/19/2018 14 - Other: See Comments Comments: Dizziness and full body weakness Candasartan [Other] 08/19/2007 2 - Rash CHOCOLATE 05/17/2018 16 - Unknown CIPROFLOXACIN (BULK) 06/10/2016 10 - Anaphylaxis GRASS POLLEN 04/26/2018 16 - Unknown INDOCIN (INDOMETHACIN SODIUM) 07/24/2006 2 - Rash IVP DYE (IODINE) 07/24/2006 10 - Anaphylaxis PENICILLINS 07/24/2006 2 - Rash PINE OIL 04/26/2018 16 - Unknown PROPRANOLOL 14 - Other: See Comments Comments: Severe low bp and kidneys shutting down. SULFA (SULFONAMIDE ANTIBIOTICS) 09/02/2017 2 - Rash 9 - Itching VALIUM (DIAZEPAM) 06/15/2017 14 - Other: See Comments Comments: Depression Date Reviewed: 04/17/2020 Reviewed by: Hiral Castaneda - Fully Assessed Reason for Visit: Follow Up [171] Primary Visit Diagnosis:Status post total hip replacement, 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] Order(s):XR PELVIS 1V AP [[id number]] Order #: [id number] Prescriptions as of 04/17/2020 Sig: FLUCONAZOLE 100 MG TABLET Take 1 tablet by mouth once d* ACETAMINOPHEN 325 MG TABLET Take 650 mg by mouth every 4 * MAGNESIUM HYDROXIDE 400 MG/5 * Take 30mL by mouth every 2 da* ALBUTEROL 2.5 MG/3 ML (0.083 * Inhale 2.5 mg as instructed e* VERAPAMIL ER (SR) 120 MG TABL* Take 1 tablet by mouth once d* ASPIRIN 81 MG CHEWABLE TABLET Take 81 mg by mouth twice kalyan* OMEPRAZOLE 20 MG CAPSULE,TUCKER* Take 20 mg by mouth twice kalyan* TOPIRAMATE 100 MG TABLET Take 100 mg by mouth four nani* AIMOVIG AUTOINJECTOR 140 MG/M* Inject 140 mg subcutaneously * VENLAFAXINE ER 75 MG CAPSULE,* Take 75 mg by mouth once lamont* LEVOCETIRIZINE 5 MG TABLET Take 2.5 mg by mouth daily at* TIOTROPIUM BROMIDE 18 MCG CAP* Inhale 18 mcg as instructed o* LEVALBUTEROL 1.25 MG/3 ML CAYLA* Use 1 Ampule via nebulizer ev* CALCITONIN (SALMON) NASAL Use 1 Inhalation in the nose * TAMSULOSIN 0.4 MG CAPSULE Take 2 capsules by mouth at b* DULOXETINE 60 MG CAPSULE,TUCKER* Take 60 mg by mouth once lamont* CLONIDINE HCL 0.1 MG TABLET Take 0.1 mg by mouth twice da* AMITRIPTYLINE 50 MG TABLET Take 50 mg by mouth daily at * ATORVASTATIN 40 MG TABLET Take 40 mg by mouth once lamont* FASENRA 30 MG/ML SUBCUTANEOUS* Inject 30 mg subcutaneously e* BUDESONIDE-FORMOTEROL HFA 160* Inhale 2 Puffs as instructed * GABAPENTIN 800 MG TABLET Take 800 mg by mouth four nani* LOSARTAN 100 MG TABLET Take 100 mg by mouth once kalyan* RIZATRIPTAN 10 MG TABLET Take 10 mg by mouth as needed* FLUTICASONE PROPIONATE 50 MCG* Use 2 Sprays in each nostril * MONTELUKAST 10 MG TABLET Take 10 mg by mouth daily at * POTASSIUM CHLORIDE ER 20 MEQ * Take 20 mEq by mouth four nani* SPIRONOLACTONE 25 MG TABLET Take 25 mg by mouth once lamont* CELECOXIB 200 MG CAPSULE Take 400 mg by mouth twice da* PROAIR HFA INHALATION Inhale 2 Puffs as instructed * DOCUSATE SODIUM 100 MG CAPSULE Take 1 capsule by mouth twice* Patient not taking: Reported on 02/14/2020 NITROFURANTOIN MONOHYDRATE AND * TAKE 1 CAPSULE BY MOUTH EVERY* Patient not taking: Reported on 03/13/2020 Problem List As Of Date 04/17/2020 Noted Resolved MIGRAINE VARIANT INTRACTABLE [G43.819] 07/24/2006 CARPAL TUNNEL SYNDROME [G56.00] 04/20/2007 Cervicalgia [M54.2] 04/14/2013 Myalgia and myositis, unspecified [PKC1493] 04/14/2013 Iron deficiency anemia [D50.9] 06/10/2016 Weakness [R53.1] 06/24/2016 Lymphadenopathy [R59.1] 02/11/2018 More... Closed displaced fracture of right femoral neck*10/16/2019 Status post total hip replacement, right [Z96.6*01/16/2020 01/20/2020 Sepsis (HCC) [A41.9] 01/24/2020 01/27/2020 TIA (transient ischemic attack) [G45.9] HTN (hypertension) [I10] GERD (gastroesophageal reflux disease) [K21.9] UTI (urinary tract infection) [N39.0] 01/25/2020 Disposition: Return in about 22 weeks (around 09/18/2020). Follow-up and Disposition History Recorded Encounter Status:Closed by HIRAL CASTANEDA MD on 04/17/20 [facility] PROGRESSon 04-17-2020 PROGRESS HNO ID: [id number] Author: Hiral Castaneda Service: ? Author Type: Physician Type: Progress Notes Filed: 04/17/2020 1:28 PM Note Text: [facility] CC: Follow-up visit after total hip replacement HPI: Mr. Bagley is here today for his 3 month clinical follow up status post right total hip replacement for failed ORIF hip fracture. Since his last visit Mr. Bagley conveys the interval has been without complications. 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 - TIA (transient ischemic attack) 2017 2017 - UTI (urinary tract infection) PAST SURGICAL HISTORY Procedure Laterality Date - CONVERT HIP REVSN TO TOTAL HIP Right 01/16/2020 ARTHROPLASTY TOTAL HIP CONVERSION AFTER PREVIOUS HIP SURG (Right) - LAMINECTOMY,LUMBAR 03/2016 L4-L5 - PAST SURGICAL HISTORY OF Bilateral x 16 surgeries surgery to repair bone in knee cap and multiple arthroscopies and debridements - PAST SURGICAL HISTORY OF 2018 bronchoscopy 5 total - PERCUT FIX PROX/NECK FEMUR Right 10/17/2019 - REMOVAL DEEP IMPLANT Right 01/16/2020 REMOVAL HARDWARE FEMUR (Right) Current Outpatient Medications Medication Sig Dispense Refill - fluconazole (DIFLUCAN) 100 mg tablet Take 1 tablet by mouth once daily. 14 tablet 0 - acetaminophen (TYLENOL) 325 mg tablet Take 650 mg by mouth every 4 hours as needed. - magnesium hydroxide (MILK OF MAGNESIA) 400 mg/5 mL suspension Take 30mL by mouth every 2 days as needed - albuterol (PROVENTIL) 2.5 mg/3 mL nebulizer solution Inhale 2.5 mg as instructed every 6 hours as needed. - verapamil SR (CALAN SR, ISOPTIN SR) 120 mg CR tablet Take 1 tablet by mouth once daily. - aspirin 81 mg chewable tablet Take 81 mg by mouth twice daily. - omeprazole (PRILOSEC) 20 mg capsule Take 20 mg by mouth twice daily. - topiramate (TOPAMAX) 100 mg tablet Take 100 mg by mouth four times daily. 200 mg in morning, 100 mg at noon, 200 mg in the evening, 100 mg at bedtime - 600 mg total daily - AIMOVIG AUTOINJECTOR 140 mg/mL syringe Inject 140 mg subcutaneously once every month. - venlafaxine ER (EFFEXOR XR) 75 mg 24 hr capsule Take 75 mg by mouth once daily. - levocetirizine (XYZAL) 5 mg tablet Take 2.5 mg by mouth daily at bedtime. - tiotropium (SPIRIVA) 18 mcg inhalation capsule Inhale 18 mcg as instructed once daily. - levalbuterol (XOPENEX) 1.25 mg/3 mL nebulizer solution Use 1 Ampule via nebulizer every 4 hours as needed. - calcitonin,salmon,synthe tic (CALCITONIN, SALMON, NASAL) Use 1 Inhalation in the nose once daily. (alternating nostrils every other day) - tamsulosin ER (FLOMAX) 0.4 mg Take 2 capsules by mouth at bedtime. 180 capsule 3 - DULoxetine (CYMBALTA) 60 mg capsule Take 60 mg by mouth once daily. - cloNIDine HCl (CATAPRES) 0.1 mg tablet Take 0.1 mg by mouth twice daily before meals (0600/1600). - amitriptyline (ELAVIL) 50 mg tablet Take 50 mg by mouth daily at bedtime. - atorvastatin (LIPITOR) 40 mg tablet Take 40 mg by mouth once daily. - FASENRA 30 mg/mL injection Inject 30 mg subcutaneously every 8 weeks. Next one due 11/15/19 - budesonide-formoterol (SYMBICORT) 160-4.5 mcg/actuation inhaler Inhale 2 Puffs as instructed twice daily. - gabapentin (NEURONTIN) 800 mg tablet Take 800 mg by mouth four times daily. - losartan (COZAAR) 100 mg tablet Take 100 mg by mouth once daily. - rizatriptan (MAXALT) 10 mg tablet Take 10 mg by mouth as needed for Migraine Headache (see administration instructions) (TWICE DAILY NEEDED). - fluticasone (FLONASE) 50 mcg/actuation nasal spray Use 2 Sprays in each nostril once daily. 1 Bottle 11 - montelukast (SINGULAIR) 10 mg tablet Take 10 mg by mouth daily at bedtime. - potassium chloride ER (K-DUR, KLOR-CON) 20 mEq tablet Take 20 mEq by mouth four times daily. - spironolactone (ALDACTONE) 25 mg tablet Take 25 mg by mouth once daily. - celecoxib (CELEBREX) 200 mg capsule Take 400 mg by mouth twice daily. - ALBUTEROL SULFATE (PROAIR HFA INHALATION) Inhale 2 Puffs as instructed every 4 hours as needed (shortness of breath). - docusate sodium (COLACE) 100 mg capsule Take 1 capsule by mouth twice daily as needed for Constipation. (Patient not taking: Reported on 02/14/2020 ) 0 - nitrofurantoin monohydrate and macrocrystal (MACROBID) 100 mg capsule TAKE 1 CAPSULE BY MOUTH EVERY DAY (Patient not taking: Reported on 03/13/2020 ) 30 capsule 10 No current facility-administered medications for this visit. ALLERGIES Allergen Reactions - Avocado Swelling - Baclofen Other: See Comments Dizziness and full body weakness - Candasartan [Other] Rash - Chocolate Unknown - Ciprofloxacin (Bulk) Anaphylaxis - Grass Pollen Unknown - Indocin [Indomethac* Rash - Ivp Dye [Iodine] Anaphylaxis - Penicillins Rash - Lima Oil Unknown - Propranolol Other: See Comments Severe low bp and kidneys shutting down. - Sulfa (Sulfonamide * Rash, Itching - Valium [Diazepam] Other: See Comments Depression FAMILY HISTORY Problem Relation Age of Onset - Emphysema Mother - Blood Clots Mother required IVC filter. Multiple blood clots before (3-4). - Hypertension Mother - Heart Failure Father 72 of CHF. 2 OR before that - Parkinson?s Disease Father 68 - Prostate Cancer Brother - Parkinson?s Disease Paternal Grandfather - Diabetes No Family History Social History Tobacco Use - Smoking status: Never Smoker - Smokeless tobacco: Never Used - Tobacco comment: second hand smoke from father. Substance Use Topics - Alcohol use: No - Drug use: No REVIEW OF SYSTEMS: GENERAL: Well developed, well nourished. No acute distress PAIN: Negative for pain, history of chronic pain or current treatment for chronic pain conditions CARDIOVASCULAR: HTN MSK: Negative for joint pain, swelling, back pain, muscle pain. SKIN: Negative for lesions, rash, itching, metal sensitivity NEURO: Negative for seizure, trauma, numbness/tingling of extremities. ENDOCRINE: Negative for Diabetes Type 1 and Type 2 HEMATOLOGY: Hx of DVT EXAMINATION: GENERAL: normal body habitus and no apparent distress CV: No extremity swelling, varices, edema, pallor, erythema Mr. Bagley has no difficulty arising out of a chair and has no difficulty ambulating in the exam room. his gait was normal. Wound remains well-healed Both lower extremities were neurovascularly intact, has no evidence of cellulitis, and has no distal swelling. X-RAYS: X-ray Interpretation: We ordered, obtained and reviewed an AP pelvis radiograph for follow-up of a right total hip arthroplasty. Compared to views of 02/28/2020 shows a BIOMET SOLOMON cementless right total hip in good position without loosening or complication. Impression: Stable postop follow up cementless right total hip. ASSESSMENT: S/P right total hip arthroplasty, significantly improved from pre-operative state and doing well and back to an active lifestyle PLAN: Increase activities as tolerated, Avoid impact loading activities. Follow up will be in 9 months. If there are any questions or problems, patient instructed to call the office. Hiral Castaneda MD [facility] 02-28-2020 [facility] Office Visit (AGPOB1 ) -------- VELIA BAGLEY Skip ([id number]) 1960 M Date Time Provider Department 02/28/20 2:15 PM HIRAL CASTANEDA AGPOB1 During your visit today, we recorded the following information about you: Respiration Weight Height 20/minute 89.8 kg 1.778 m Hiral Castaneda MD 02/29/2020 9:02 AM Signed REVIEW OF SYSTEMS: GENERAL: Well developed, well nourished. No acute distress PAIN: Negative for pain, history of chronic pain or current treatment for chronic pain conditions CARDIOVASCULAR: Negative for chest pain, leg swelling and palpations. MSK: Negative for joint pain, swelling, back pain, muscle pain. SKIN: Negative for lesions, rash, itching, metal sensitivity NEURO: Negative for seizure, trauma, numbness/tingling of extremities. ENDOCRINE: Negative for Diabetes Type 1 and Type 2 HEMATOLOGY: Clots LLE DVT Hiral Castaneda MD 02/29/2020 9:02 AM Signed X-ray Interpretation: We ordered, obtained and reviewed an AP pelvis radiograph for follow-up of a right total hip arthroplasty. Compared to views of 01/27/2020 shows a BIOMET cementless right total hip in good position without loosening or complication. Impression: Stable postop follow up cementless right total hip. Velia Bagley Comes in today for 6-week follow-up of his right total hip conversion after his failed right hip pinning for femoral neck fracture. He is doing phenomenally well. Outstanding pain relief. Ambulating with a walker for safety. Uses a cane indoors. Very pleased with his result. On examination today his wound is well-healed. He has a negative Trendelenburg sign. Walks with a good gait without aids today. Has no calf pain or distal edema. At this point he will continue with his home therapy. I agree with Utilizing a walker for long distances for fall prevention. We will see him back in 6 weeks time. Sooner if he has any issues. GAV REVIEW OF SYSTEMS: GENERAL: Well developed, well nourished. No acute distress PAIN: Negative for pain, history of chronic pain or current treatment for chronic pain conditions CARDIOVASCULAR: Negative for chest pain, leg swelling and palpations. MSK: Negative for joint pain, swelling, back pain, muscle pain. SKIN: Negative for lesions, rash, itching, metal sensitivity NEURO: Negative for seizure, trauma, numbness/tingling of extremities. ENDOCRINE: Negative for Diabetes Type 1 and Type 2 HEMATOLOGY: Clots LLE DVT Referring Provider: SELF [200] Allergies As of Date: 02/28/2020 Noted Allergy Reaction AVOCADO 04/26/2018 7 - Swelling BACLOFEN 02/19/2018 14 - Other: See Comments Comments: Dizziness and full body weakness Candasartan [Other] 08/19/2007 2 - Rash CHOCOLATE 05/17/2018 16 - Unknown CIPROFLOXACIN (BULK) 06/10/2016 10 - Anaphylaxis GRASS POLLEN 04/26/2018 16 - Unknown INDOCIN (INDOMETHACIN SODIUM) 07/24/2006 2 - Rash IVP DYE (IODINE) 07/24/2006 10 - Anaphylaxis PENICILLINS 07/24/2006 2 - Rash PINE OIL 04/26/2018 16 - Unknown PROPRANOLOL 14 - Other: See Comments Comments: Severe low bp and kidneys shutting down. SULFA (SULFONAMIDE ANTIBIOTICS) 09/02/2017 2 - Rash 9 - Itching VALIUM (DIAZEPAM) 06/15/2017 14 - Other: See Comments Comments: Depression Date Reviewed: 02/28/2020 Reviewed by: Hiral Castaneda - Fully Assessed Reason for Visit: Established Patient [175] Follow Up [171] Primary Visit Diagnosis:Status post total hip replacement, 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] Order(s):XR PELVIS 1V AP [[id number]] Order #: [id number] Prescriptions as of 02/28/2020 Sig: FLUCONAZOLE 100 MG TABLET Take 1 tablet by mouth once d* ACETAMINOPHEN 325 MG TABLET Take 650 mg by mouth every 4 * MAGNESIUM HYDROXIDE 400 MG/5 * Take 30mL by mouth every 2 da* ALBUTEROL 2.5 MG/3 ML (0.083 * Inhale 2.5 mg as instructed e* VERAPAMIL ER (SR) 120 MG TABL* Take 1 tablet by mouth once d* ASPIRIN 81 MG CHEWABLE TABLET Take 81 mg by mouth twice kalyan* OMEPRAZOLE 20 MG CAPSULE,TUCKER* Take 20 mg by mouth twice kalyan* TOPIRAMATE 100 MG TABLET Take 100 mg by mouth four nnai* AIMOVIG AUTOINJECTOR 140 MG/M* Inject 140 mg subcutaneously * VENLAFAXINE ER 75 MG CAPSULE,* Take 75 mg by mouth once lamont* LEVOCETIRIZINE 5 MG TABLET Take 2.5 mg by mouth daily at* TIOTROPIUM BROMIDE 18 MCG CAP* Inhale 18 mcg as instructed o* LEVALBUTEROL 1.25 MG/3 ML CAYLA* Use 1 Ampule via nebulizer ev* CALCITONIN (SALMON) NASAL Use 1 Inhalation in the nose * TAMSULOSIN 0.4 MG CAPSULE Take 2 capsules by mouth at b* DULOXETINE 60 MG CAPSULE,TUCKER* Take 60 mg by mouth once lamont* CLONIDINE HCL 0.1 MG TABLET Take 0.1 mg by mouth twice da* NITROFURANTOIN MONOHYDRATE AND * TAKE 1 CAPSULE BY MOUTH EVERY* AMITRIPTYLINE 50 MG TABLET Take 50 mg by mouth daily at * ATORVASTATIN 40 MG TABLET Take 40 mg by mouth once lamont* FASENRA 30 MG/ML SUBCUTANEOUS* Inject 30 mg subcutaneously e* BUDESONIDE-FORMOTEROL HFA 160* Inhale 2 Puffs as instructed * GABAPENTIN 800 MG TABLET Take 800 mg by mouth four nani* LOSARTAN 100 MG TABLET Take 100 mg by mouth once kalyan* RIZATRIPTAN 10 MG TABLET Take 10 mg by mouth as needed* FLUTICASONE PROPIONATE 50 MCG* Use 2 Sprays in each nostril * MONTELUKAST 10 MG TABLET Take 10 mg by mouth daily at * POTASSIUM CHLORIDE ER 20 MEQ * Take 20 mEq by mouth four nani* SPIRONOLACTONE 25 MG TABLET Take 25 mg by mouth once lamont* CELECOXIB 200 MG CAPSULE Take 400 mg by mouth twice da* PROAIR HFA INHALATION Inhale 2 Puffs as instructed * DOCUSATE SODIUM 100 MG CAPSULE Take 1 capsule by mouth twice* Patient not taking: Reported on 02/14/2020 Problem List As Of Date 02/28/2020 Noted Resolved MIGRAINE VARIANT INTRACTABLE [G43.819] 07/24/2006 CARPAL TUNNEL SYNDROME [G56.00] 04/20/2007 Cervicalgia [M54.2] 04/14/2013 Myalgia and myositis, unspecified [[id number]] 04/14/2013 Iron deficiency anemia [D50.9] 06/10/2016 Weakness [R53.1] 06/24/2016 Lymphadenopathy [R59.1] 02/11/2018 More... Closed displaced fracture of right femoral neck*10/16/2019 Status post total hip replacement, right [Z96.6*01/16/2020 01/20/2020 Sepsis (HCC) [A41.9] 01/24/2020 01/27/2020 TIA (transient ischemic attack) [G45.9] HTN (hypertension) [I10] GERD (gastroesophageal reflux disease) [K21.9] UTI (urinary tract infection) [N39.0] 01/25/2020 Disposition: Return in about 6 weeks (around 04/10/2020). Follow-up and Disposition History Recorded Encounter Status:Closed by HIRAL CASTANEDA MD on 02/29/20 [facility] PROGRESSon 02-28-2020 PROGRESS HNO ID: [id number] Author: Hiral Castaneda Service: ? Author Type: Physician Type: Progress Notes Filed: 02/29/2020 9:02 AM Note Text: REVIEW OF SYSTEMS: GENERAL: Well developed, well nourished. No acute distress PAIN: Negative for pain, history of chronic pain or current treatment for chronic pain conditions CARDIOVASCULAR: Negative for chest pain, leg swelling and palpations. MSK: Negative for joint pain, swelling, back pain, muscle pain. SKIN: Negative for lesions, rash, itching, metal sensitivity NEURO: Negative for seizure, trauma, numbness/tingling of extremities. ENDOCRINE: Negative for Diabetes Type 1 and Type 2 HEMATOLOGY: Clots LLE DVT Normal [facility] PROGRESS HNO ID: [id number] Author: Hiral Castaneda Service: ? Author Type: Physician Type: Progress Notes Filed: 02/29/2020 9:02 AM Note Text: X-ray Interpretation: We ordered, obtained and reviewed an AP pelvis radiograph for follow-up of a right total hip arthroplasty. Compared to views of 01/27/2020 shows a BIOMET cementless right total hip in good position without loosening or complication. Impression: Stable postop follow up cementless right total hip. Velia Bagley Comes in today for 6-week follow-up of his right total hip conversion after his failed right hip pinning for femoral neck fracture. He is doing phenomenally well. Outstanding pain relief. Ambulating with a walker for safety. Uses a cane indoors. Very pleased with his result. On examination today his wound is well-healed. He has a negative Trendelenburg sign. Walks with a good gait without aids today. Has no calf pain or distal edema. At this point he will continue with his home therapy. I agree with Utilizing a walker for long distances for fall prevention. We will see him back in 6 weeks time. Sooner if he has any issues. GAV REVIEW OF SYSTEMS: GENERAL: Well developed, well nourished. No acute distress PAIN: Negative for pain, history of chronic pain or current treatment for chronic pain conditions CARDIOVASCULAR: Negative for chest pain, leg swelling and palpations. MSK: Negative for joint pain, swelling, back pain, muscle pain. SKIN: Negative for lesions, rash, itching, metal sensitivity NEURO: Negative for seizure, trauma, numbness/tingling of extremities. ENDOCRINE: Negative for Diabetes Type 1 and Type 2 HEMATOLOGY: Clots LLE DVT Normal [facility] CNPNon 02-02-2020 CNPN Telephone (AK52B) -------- VELIA BAGLEY ([id number]) 1960 M Date Time Provider Department 02/02/20 JO CRUZ (RN) [id number] During your visit today, we recorded the following information about you: Allergies As of Date: 02/02/2020 Noted Allergy Reaction AVOCADO 04/26/2018 7 - Swelling BACLOFEN 02/19/2018 14 - Other: See Comments Comments: Dizziness and full body weakness Candasartan [Other] 08/19/2007 2 - Rash CHOCOLATE 05/17/2018 16 - Unknown CIPROFLOXACIN (BULK) 06/10/2016 10 - Anaphylaxis GRASS POLLEN 04/26/2018 16 - Unknown INDOCIN (INDOMETHACIN SODIUM) 07/24/2006 2 - Rash IVP DYE (IODINE) 07/24/2006 10 - Anaphylaxis PENICILLINS 07/24/2006 2 - Rash PINE OIL 04/26/2018 16 - Unknown PROPRANOLOL 14 - Other: See Comments Comments: Severe low bp and kidneys shutting down. SULFA (SULFONAMIDE ANTIBIOTICS) 09/02/2017 2 - Rash 9 - Itching VALIUM (DIAZEPAM) 06/15/2017 14 - Other: See Comments Comments: Depression Date Reviewed: 01/25/2020 Reviewed by: King Dimas, BULL - Fully Assessed Reason for Visit: Post Op Call [[id number]] Prescriptions as of 02/02/2020 Sig: CEFDINIR 300 MG CAPSULE Take 1 capsule by mouth twice* ACETAMINOPHEN 325 MG TABLET Take 650 mg by mouth every 4 * MAGNESIUM HYDROXIDE 400 MG/5 * Take 30mL by mouth every 2 da* ALBUTEROL 2.5 MG/3 ML (0.083 * Inhale 2.5 mg as instructed e* ENOXAPARIN 40 MG/0.4 ML SUBCU* Inject 0.4 mL subcutaneously * VERAPAMIL ER (SR) 120 MG TABL* Take 1 tablet by mouth once d* DOCUSATE SODIUM 100 MG CAPSULE Take 1 capsule by mouth twice* ASPIRIN 81 MG CHEWABLE TABLET Take 81 mg by mouth twice kalyan* OMEPRAZOLE 20 MG CAPSULE,TUCKER* Take 20 mg by mouth twice kalyan* TOPIRAMATE 100 MG TABLET Take 100 mg by mouth four nani* AIMOVIG AUTOINJECTOR 140 MG/M* Inject 140 mg subcutaneously * VENLAFAXINE ER 75 MG CAPSULE,* Take 75 mg by mouth once lamont* LEVOCETIRIZINE 5 MG TABLET Take 2.5 mg by mouth daily at* TIOTROPIUM BROMIDE 18 MCG CAP* Inhale 18 mcg as instructed o* LEVALBUTEROL 1.25 MG/3 ML CAYLA* Use 1 Ampule via nebulizer ev* CALCITONIN (SALMON) NASAL Use 1 Inhalation in the nose * TAMSULOSIN 0.4 MG CAPSULE Take 2 capsules by mouth at b* DULOXETINE 60 MG CAPSULE,TUCKER* Take 60 mg by mouth once lamont* PRIMIDONE 250 MG TABLET Take 250 mg by mouth daily at* CLONIDINE HCL 0.1 MG TABLET Take 0.1 mg by mouth twice da* NITROFURANTOIN MONOHYDRATE AND * TAKE 1 CAPSULE BY MOUTH EVERY* AMITRIPTYLINE 50 MG TABLET Take 50 mg by mouth daily at * ATORVASTATIN 40 MG TABLET Take 40 mg by mouth once lamont* FASENRA 30 MG/ML SUBCUTANEOUS* Inject 30 mg subcutaneously e* BUDESONIDE-FORMOTEROL HFA 160* Inhale 2 Puffs as instructed * GABAPENTIN 800 MG TABLET Take 800 mg by mouth four nani* LOSARTAN 100 MG TABLET Take 100 mg by mouth once kalyan* RIZATRIPTAN 10 MG TABLET Take 10 mg by mouth as needed* FLUTICASONE PROPIONATE 50 MCG* Use 2 Sprays in each nostril * MONTELUKAST 10 MG TABLET Take 10 mg by mouth daily at * POTASSIUM CHLORIDE ER 20 MEQ * Take 20 mEq by mouth four nani* SPIRONOLACTONE 25 MG TABLET Take 25 mg by mouth once lamont* CELECOXIB 200 MG CAPSULE Take 400 mg by mouth twice da* PROAIR HFA INHALATION Inhale 2 Puffs as instructed * Problem List As Of Date 02/02/2020 Noted Resolved MIGRAINE VARIANT INTRACTABLE [G43.819] 07/24/2006 CARPAL TUNNEL SYNDROME [G56.00] 04/20/2007 Cervicalgia [M54.2] 04/14/2013 Myalgia and myositis, unspecified [[id number]] 04/14/2013 Iron deficiency anemia [D50.9] 06/10/2016 Weakness [R53.1] 06/24/2016 Lymphadenopathy [R59.1] 02/11/2018 More... Closed displaced fracture of right femoral neck*10/16/2019 Status post total hip replacement, right [Z96.6*01/16/2020 01/20/2020 Sepsis (HCC) [A41.9] 01/24/2020 01/27/2020 TIA (transient ischemic attack) [G45.9] HTN (hypertension) [I10] GERD (gastroesophageal reflux disease) [K21.9] UTI (urinary tract infection) [N39.0] 01/25/2020 Encounter Status:Closed by JO CRUZ RN on 02/02/20 [facility] CNPN Telephone (AK52B) -------- YUDIVELIA ([id number]) 1960 M Date Time Provider Department 02/02/20 JO CRUZ (BULL) AK52B During your visit today, we recorded the following information about you: Jo Cruz RN 02/02/2020 1:06 PM Signed TOTAL JOINT COMPLETE CARE PROGRAM DISCHARGE FOLLOW-UP PHONE CALL Phone Call Date: 02/02/2020 Phone Call Time: 1300 Date of Surgery: 01/16/2020 Procedure: Right Total Hip Replacement FOLLOW-UP QUESTIONS: 1. Did you receive adequate written instructions upon discharge? Yes 2. Do you have your follow-up appointment schedule? YES 3. Is your pain controlled with current medication regimen? YES Current Pain level out of 10: 0 4. If you are able to see your incision, is there any increased drainage? NO 5. Any increased swelling? NO 6. Any increased redness? NO 7. If your dressing is still on, do you know when to remove it? Removed already 8. Do you have any of the following new/worsening symptoms? None 9. Have you contacted your surgeon's office about these symptoms? N/A Joint Class Participation: n/a Education Completed: Yes Online or DVD Education Complete: n/a SIGNATURE: Jo Cruz RN PATIENT NAME: Velia Guoriri DATE: February 02, 2020 TIME: 1:05 PM PAGER/CONTACT #: [phone] Patient doing well at home, was re-admitted to hospital from SNF, was discharged then to home with [facility]. He is doing very well, pain is a zero, only time he has pain is when getting in/out of care, no issues with nausea/constipation. Incision looks good, he saw surgeon earlier this week, he was pleased. Patient has no needs at this time, can call at anytime. Allergies As of Date: 02/02/2020 Noted Allergy Reaction AVOCADO 04/26/2018 7 - Swelling BACLOFEN 02/19/2018 14 - Other: See Comments Comments: Dizziness and full body weakness Candasartan [Other] 08/19/2007 2 - Rash CHOCOLATE 05/17/2018 16 - Unknown CIPROFLOXACIN (BULK) 06/10/2016 10 - Anaphylaxis GRASS POLLEN 04/26/2018 16 - Unknown INDOCIN (INDOMETHACIN SODIUM) 07/24/2006 2 - Rash IVP DYE (IODINE) 07/24/2006 10 - Anaphylaxis PENICILLINS 07/24/2006 2 - Rash PINE OIL 04/26/2018 16 - Unknown PROPRANOLOL 14 - Other: See Comments Comments: Severe low bp and kidneys shutting down. SULFA (SULFONAMIDE ANTIBIOTICS) 09/02/2017 2 - Rash 9 - Itching VALIUM (DIAZEPAM) 06/15/2017 14 - Other: See Comments Comments: Depression Date Reviewed: 01/25/2020 Reviewed by: King Dimas RN - Fully Assessed Reason for Visit: PreOp Call [[id number]] Prescriptions as of 02/02/2020 Sig: CEFDINIR 300 MG CAPSULE Take 1 capsule by mouth twice* ACETAMINOPHEN 325 MG TABLET Take 650 mg by mouth every 4 * MAGNESIUM HYDROXIDE 400 MG/5 * Take 30mL by mouth every 2 da* ALBUTEROL 2.5 MG/3 ML (0.083 * Inhale 2.5 mg as instructed e* ENOXAPARIN 40 MG/0.4 ML SUBCU* Inject 0.4 mL subcutaneously * VERAPAMIL ER (SR) 120 MG TABL* Take 1 tablet by mouth once d* DOCUSATE SODIUM 100 MG CAPSULE Take 1 capsule by mouth twice* ASPIRIN 81 MG CHEWABLE TABLET Take 81 mg by mouth twice kalyan* OMEPRAZOLE 20 MG CAPSULE,TUCKER* Take 20 mg by mouth twice kalyan* TOPIRAMATE 100 MG TABLET Take 100 mg by mouth four nani* AIMOVIG AUTOINJECTOR 140 MG/M* Inject 140 mg subcutaneously * VENLAFAXINE ER 75 MG CAPSULE,* Take 75 mg by mouth once lamont* LEVOCETIRIZINE 5 MG TABLET Take 2.5 mg by mouth daily at* TIOTROPIUM BROMIDE 18 MCG CAP* Inhale 18 mcg as instructed o* LEVALBUTEROL 1.25 MG/3 ML CAYLA* Use 1 Ampule via nebulizer ev* CALCITONIN (SALMON) NASAL Use 1 Inhalation in the nose * TAMSULOSIN 0.4 MG CAPSULE Take 2 capsules by mouth at b* DULOXETINE 60 MG CAPSULE,TUCKER* Take 60 mg by mouth once lamont* PRIMIDONE 250 MG TABLET Take 250 mg by mouth daily at* CLONIDINE HCL 0.1 MG TABLET Take 0.1 mg by mouth twice da* NITROFURANTOIN MONOHYDRATE AND * TAKE 1 CAPSULE BY MOUTH EVERY* AMITRIPTYLINE 50 MG TABLET Take 50 mg by mouth daily at * ATORVASTATIN 40 MG TABLET Take 40 mg by mouth once lamont* FASENRA 30 MG/ML SUBCUTANEOUS* Inject 30 mg subcutaneously e* BUDESONIDE-FORMOTEROL HFA 160* Inhale 2 Puffs as instructed * GABAPENTIN 800 MG TABLET Take 800 mg by mouth four nani* LOSARTAN 100 MG TABLET Take 100 mg by mouth once kalyan* RIZATRIPTAN 10 MG TABLET Take 10 mg by mouth as needed* FLUTICASONE PROPIONATE 50 MCG* Use 2 Sprays in each nostril * MONTELUKAST 10 MG TABLET Take 10 mg by mouth daily at * POTASSIUM CHLORIDE ER 20 MEQ * Take 20 mEq by mouth four nani* SPIRONOLACTONE 25 MG TABLET Take 25 mg by mouth once lamont* CELECOXIB 200 MG CAPSULE Take 400 mg by mouth twice da* PROAIR HFA INHALATION Inhale 2 Puffs as instructed * Problem List As Of Date 02/02/2020 Noted Resolved MIGRAINE VARIANT INTRACTABLE [G43.819] 07/24/2006 CARPAL TUNNEL SYNDROME [G56.00] 04/20/2007 Cervicalgia [M54.2] 04/14/2013 Myalgia and myositis, unspecified [[id number]] 04/14/2013 Iron deficiency anemia [D50.9] 06/10/2016 Weakness [R53.1] 06/24/2016 Lymphadenopathy [R59.1] 02/11/2018 More... Closed displaced fracture of right femoral neck*10/16/2019 Status post total hip replacement, right [Z96.6*01/16/2020 01/20/2020 Sepsis (HCC) [A41.9] 01/24/2020 01/27/2020 TIA (transient ischemic attack) [G45.9] HTN (hypertension) [I10] GERD (gastroesophageal reflux disease) [K21.9] UTI (urinary tract infection) [N39.0] 01/25/2020 Encounter Status:Closed by JO CRUZ RN on 02/02/20 [facility] PROGRESSon 02-02-2020 PROGRESS HNO ID: [id number] Author: Hiral Castaneda Service: ? 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 Overall he feels excellent . Has no pain. He is ambulating with a walker but feels ready for a cane.His UTI has resolved. On examination today his wound is completely healed. The area of concern is just a slight Intussusception of his incision Caused by suture tension. His wound is completely healed soft and nontender. He has no calf pain or distal edema. I advised him that things are doing well. He does have some ecchymosis on his lower abdomen that he was concerned about secondary to his Lovenox. He is completed his course of Lovenox and I advised him that this will resolve over time. Can try some warm compresses on the region. He is going to continue with his home therapy. Cautioned him about falling. Encouraged him and continued use of the walker for fall prevention. I will see him back in 4 weeks time. Sooner if he has any problems. 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 Overall he feels excellent . Has no pain. He is ambulating with a walker but feels ready for a cane.His UTI has resolved. On examination today his wound is completely healed. The area of concern is just a slight Intussusception of his incision Caused by suture tension. His wound is completely healed soft and nontender. He has no calf pain or distal edema. I advised him that things are doing well. He does have some ecchymosis on his lower abdomen that he was concerned about secondary to his Lovenox. He is completed his course of Lovenox and I advised him that this will resolve over time. Can try some warm compresses on the region. He is going to continue with his home therapy. Cautioned him about falling. Encouraged him and continued use of the walker for fall prevention. I will see him back in 4 weeks time. Sooner if he has any problems. GAV Referring Provider: HIRAL CASTANEDA [[id number]] Allergies As of Date: 01/31/2020 Noted Allergy Reaction AVOCADO 04/26/2018 7 - Swelling BACLOFEN 02/19/2018 14 - Other: See Comments Comments: Dizziness and full body weakness Candasartan [Other] 08/19/2007 2 - Rash CHOCOLATE 05/17/2018 16 - Unknown CIPROFLOXACIN (BULK) 06/10/2016 10 - Anaphylaxis GRASS POLLEN 04/26/2018 16 - Unknown INDOCIN (INDOMETHACIN SODIUM) 07/24/2006 2 - Rash IVP DYE (IODINE) 07/24/2006 10 - Anaphylaxis PENICILLINS 07/24/2006 2 - Rash PINE OIL 04/26/2018 16 - Unknown PROPRANOLOL 14 - Other: See Comments Comments: Severe low bp and kidneys shutting down. SULFA (SULFONAMIDE ANTIBIOTICS) 09/02/2017 2 - Rash 9 - Itching VALIUM (DIAZEPAM) 06/15/2017 14 - Other: See Comments Comments: Depression Date Reviewed: 01/25/2020 Reviewed by: King Dimas RN - Fully Assessed Reason for Visit: Post Op [174] Primary Visit Diagnosis:Status post total hip replacement, 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] Prescriptions as of 01/31/2020 Sig: CEFDINIR 300 MG CAPSULE Take 1 capsule by mouth twice* ACETAMINOPHEN 325 MG TABLET Take 650 mg by mouth every 4 * MAGNESIUM HYDROXIDE 400 MG/5 * Take 30mL by mouth every 2 da* ALBUTEROL 2.5 MG/3 ML (0.083 * Inhale 2.5 mg as instructed e* ENOXAPARIN 40 MG/0.4 ML SUBCU* Inject 0.4 mL subcutaneously * VERAPAMIL ER (SR) 120 MG TABL* Take 1 tablet by mouth once d* DOCUSATE SODIUM 100 MG CAPSULE Take 1 capsule by mouth twice* ASPIRIN 81 MG CHEWABLE TABLET Take 81 mg by mouth twice kalyan* OMEPRAZOLE 20 MG CAPSULE,TUCKER* Take 20 mg by mouth twice kalyan* TOPIRAMATE 100 MG TABLET Take 100 mg by mouth four nani* AIMOVIG AUTOINJECTOR 140 MG/M* Inject 140 mg subcutaneously * VENLAFAXINE ER 75 MG CAPSULE,* Take 75 mg by mouth once lamont* LEVOCETIRIZINE 5 MG TABLET Take 2.5 mg by mouth daily at* TIOTROPIUM BROMIDE 18 MCG CAP* Inhale 18 mcg as instructed o* LEVALBUTEROL 1.25 MG/3 ML CAYLA* Use 1 Ampule via nebulizer ev* CALCITONIN (SALMON) NASAL Use 1 Inhalation in the nose * TAMSULOSIN 0.4 MG CAPSULE Take 2 capsules by mouth at b* DULOXETINE 60 MG CAPSULE,TUCKER* Take 60 mg by mouth once lamont* PRIMIDONE 250 MG TABLET Take 250 mg by mouth daily at* CLONIDINE HCL 0.1 MG TABLET Take 0.1 mg by mouth twice da* NITROFURANTOIN MONOHYDRATE AND * TAKE 1 CAPSULE BY MOUTH EVERY* AMITRIPTYLINE 50 MG TABLET Take 50 mg by mouth daily at * ATORVASTATIN 40 MG TABLET Take 40 mg by mouth once lamont* FASENRA 30 MG/ML SUBCUTANEOUS* Inject 30 mg subcutaneously e* BUDESONIDE-FORMOTEROL HFA 160* Inhale 2 Puffs as instructed * GABAPENTIN 800 MG TABLET Take 800 mg by mouth four nani* LOSARTAN 100 MG TABLET Take 100 mg by mouth once kalyan* RIZATRIPTAN 10 MG TABLET Take 10 mg by mouth as needed* FLUTICASONE PROPIONATE 50 MCG* Use 2 Sprays in each nostril * MONTELUKAST 10 MG TABLET Take 10 mg by mouth daily at * POTASSIUM CHLORIDE ER 20 MEQ * Take 20 mEq by mouth four nani* SPIRONOLACTONE 25 MG TABLET Take 25 mg by mouth once lamont* CELECOXIB 200 MG CAPSULE Take 400 mg by mouth twice da* PROAIR HFA INHALATION Inhale 2 Puffs as instructed * Problem List As Of Date 01/31/2020 Noted Resolved MIGRAINE VARIANT INTRACTABLE [G43.819] 07/24/2006 CARPAL TUNNEL SYNDROME [G56.00] 04/20/2007 Cervicalgia [M54.2] 04/14/2013 Myalgia and myositis, unspecified [BSI0738] 04/14/2013 Iron deficiency anemia [D50.9] 06/10/2016 Weakness [R53.1] 06/24/2016 Lymphadenopathy [R59.1] 02/11/2018 More... Closed displaced fracture of right femoral neck*10/16/2019 Status post total hip replacement, right [Z96.6*01/16/2020 01/20/2020 Sepsis (HCC) [A41.9] 01/24/2020 01/27/2020 TIA (transient ischemic attack) [G45.9] HTN (hypertension) [I10] GERD (gastroesophageal reflux disease) [K21.9] UTI (urinary tract infection) [N39.0] 01/25/2020 Disposition: Return in about 4 weeks (around 02/28/2020). Follow-up and Disposition History Recorded Encounter Status:Closed by HIRAL CASTANEDA MD on 02/02/20 [facility] Basic Metabolic Panelon 01-03 Anion gap [Moles/Vol] 10 mmol/L Normal 9-18 [facility] Comment on above: Performed By: #### B MP #### [facility] [address] [place], [place] [address] Calcium [Mass/Vol] 8.2 mg/dL Low 8.5-10.2 [facility] Comment on above: Performed By: #### B MP #### [facility] [address] [place], [place] [address] Chloride [Moles/Vol] 112 mmol/L High 97-105 [facility] Comment on above: Performed By: #### B MP #### [facility] [address] [place], [place] [address] CO2 Blood 19 mmol/L Low 22-30 [facility] Comment on above: Performed By: #### B MP #### [facility] [address] [place], [place] [address] Creatinine [Mass/Vol] 0.85 mg/dL Normal 0.73-1.22 [facility] Comment on above: Performed By: #### B MP #### [facility] [address] [place], [place] [address] Glucose [Mass/Vol] 84 mg/dL Normal 74-99 [facility] Comment on above: Result Comment: The [place] [employer] (ADA) provides guidance for cutoff values for fasting glucose and random glucose. The ADA defines fasting as no caloric intake for at least 8 hours.Fasting plasma glucose results between 100 to 125 mg/dL indicate increased risk for diabetes (prediabetes). Fasting plasma glucose results greater than or equal to 126 mg/dL meet the criteria for diagnosis of diabetes. In the absence of unequivocal hyperglycemia, results should be confirmed by repeat testing. In a patient with classic symptoms of hyperglycemia or hyperglycemic crisis, random plasma glucose results greater than or equal to 200 mg/dL meet the criteria for diagnosis of diabetes. Reference: Standards of Medical Care in Diabetes 2016; [place] [employer]. Diabetes Care. 2016;39(Suppl 1). Performed By: #### B MP #### [facility] [address] [place], [place] [address] Potassium [Moles/Vol] 3.6 mmol/L Low 3.7-5.1 [facility] Comment on above: Performed By: #### B MP #### [facility] [address] [place], [place] [address] Sodium [Moles/Vol] 141 mmol/L Normal 136-144 [facility] Comment on above: Performed By: #### B MP #### [facility] [address] [place], [place] [address] Urea nitrogen [Mass/Vol] 11 mg/dL Normal 9-24 [facility] Comment on above: Performed By: #### B MP #### [facility] [address] [place], [place] [address] CASE MANAGEMon 01-27-2020 CASE MANAGEM HNO ID: [id number] Author: Saira (Rn) BULL Chavez Service: Care Management Author Type: Registered Nurse Type: Care Mgt Progress Note Filed: 01/27/2020 12:11 PM Note Text: CARE MANAGEMENT DISCHARGE NOTE SERVICE DATE: 01/27/2020 SERVICE TIME: 12:09 PM LOS: 3 days Admission Date: 01/24/2020 DISCHARGE ARRANGEMENT (list agency and phone number) Discharge Arrangement: Home;Home Retirement Care: Nursing;PT;OT Provider Name: Linette CAREGIVER ASSESSMENT: HANDOFF COMMUNICATION: Handoff to: Primary Care Physician Primary Care Physician Name/Phone: Rachel Rayo MD TRANSPORTATION ARRANGEMENTS: Transportation Arrangements: Car ADDITIONAL CONTACT RESOURCES: none Patient has been discharged home with [facility]. Homecare orders and Discharge Summary have been faxed. SIGNATURE: Saira Chavez RN PATIENT NAME: Velia Bagley DATE: January 27, 2020 TIME: 12:09 PM PAGER/CONTACT #: [phone] Normal [facility] Hemogram/Diffon 01-27-2020 Abs Immature Grans 0.09 thou/cmm High 0.00-0.05 [facility] Comment on above: Performed By: #### R COVD #### [facility] [address] [place] [address] Abs Neut (ANC) 3.47 thou/cmm Normal 1.78-5.38 [facility] Comment on above: Performed By: #### R COVD #### [facility] [address] [place] [address] Abs. Baso 0.01 thou/cmm Normal 0.01-0.08 [facility] Comment on above: Performed By: #### R COVD #### [facility] [address] [place] [address] Abs. [place] 0.37 thou/cmm Normal 0.30-0.82 [facility] Comment on above: Performed By: #### R COVD #### [facility] [address] [place] [address] Basophils/100 WBC (Bld) 0.2 % Normal [facility] Comment on above: Performed By: #### R COVD #### [facility] [address] [place] [address] Eosinophils (Bld) [#/Vol] 0.00 thou/cmm Low 0.04-0.54 [facility] Comment on above: Performed By: #### R COVD #### [facility] [address] [place] [address] Eosinophils/100 WBC (Bld) 0.0 % Normal [facility] Comment on above: Performed By: #### R COVD #### [facility] [address] [place] [address] Erythrocyte distribution width (RBC) [Ratio] 15.6 % High 11.6-14.4 [facility] Comment on above: Performed By: #### R COVD #### [facility] [address] [place] [address] Hematocrit (Bld) [Volume fraction] 26.8 % Low 40.1-51.0 [facility] Comment on above: Performed By: #### R COVD #### [facility] [address] [place] [address] Hemoglobin (Bld) [Mass/Vol] 8.6 g/dL Low 13.7-17.5 [facility] Comment on above: Performed By: #### R COVD #### [facility] [address] [place] [address] Immature Grans 1.80 % Normal [facility] Comment on above: Performed By: #### R COVD #### [facility] [address] [place], [place] [address] Lymphocytes (Bld) [#/Vol] 1.19 thou/cmm Normal 0.84-2.85 [facility] Comment on above: Performed By: #### R COVD #### [facility] [address] [place], [place] [address] Lymphocytes/100 WBC (Bld) 23.2 % Normal [facility] Comment on above: Performed By: #### R COVD #### [facility] [address] [place], [place] [address] MCH (RBC) [Entitic mass] 29.3 pg Normal 25.7-32.2 [facility] Comment on above: Performed By: #### R COVD #### [facility] [address] [place], [place] [address] MCHC (RBC) [Mass/Vol] 32.1 % Low 32.3-36.5 [facility] Comment on above: Performed By: #### R COVD #### [facility] [address] [place], [place] [address] MCV (RBC) [Entitic vol] 91.2 fL Normal 83.2-95.6 [facility] Comment on above: Performed By: #### R COVD #### [facility] [address] [place], [place] [address] Monocytes/100 WBC (Bld) 7.2 % Normal [facility] Comment on above: Performed By: #### R COVD #### [facility] [address] [place], [place] [address] Platelet mean volume (Bld) [Entitic vol] 9.3 fL Normal 8.7-12.0 [facility] Comment on above: Performed By: #### R COVD #### [facility] [address] [place], [place] [address] Platelets (Bld) [#/Vol] 191 thou/cmm Normal 141-365 [facility] Comment on above: Performed By: #### R COVD #### [facility] [address] [place] [address] RBC (Bld) [#/Vol] 2.94 mil/cmm Low 4.63-6.08 [facility] Comment on above: Performed By: #### R COVD #### [facility] [address] [place] [address] RDW SD 51.7 fl High 36.1-45.8 [facility] Comment on above: Performed By: #### R COVD #### [facility] [address] [place] [address] Seg Neutrophil 67.6 % Normal [facility] Comment on above: Performed By: #### R COVD #### [facility] [address] [place] [address] WBC (Bld) [#/Vol] 5.14 thou/cmm Normal 4.23-9.07 [facility] Comment on above: Performed By: #### R COVD #### [facility] [address] [place] [address] MDRD GFRon 01-27-2020 GFR/1.73 sq M predicted among non-blacks MDRD (S/P/Bld) [Vol rate/Area] mL/min/{1.73_m2} Normal >60mL/min/1. 73m2 [facility] Comment on above: Result Comment: If t he patient is , multiply the result by 1.210. Performed By: #### B MP #### [place] [address] PLAN OF CAREon 01-27-2020 PLAN OF CARE HNO ID: [id number] Author: Betty Watkins (Pharmacist) Service: Pharmacy Author Type: Pharmacist Type: Plan of Care Filed: 01/27/2020 11:46 AM Note Text: DISCHARGE MEDICATION REVIEW BY PHARMACY Patient Name: Velia Bagley Account #: Data Unavailable Admission Date: 01/24/2020 Date of Contact: January 27, 2020 Time of Contact: 11:45 AM Medication list was reviewed by a Pharmacist for drug interactions or drug related problems:Yes Below is a summary of pharmacist recommendations discussed with LIP: No Recommendations at this time from Discharge Medication List. I have reviewed the discharge medication list and patient is being discharged home with home health care. The only new medication for the patient on discharge is a 7-day course of cefdinir and patient has been receiving ceftriaxone inpatient. BETTY WATKINS, PHARMACIST January 27, 2020 11:45 AM Pager: [phone] 01/27/2020 11:45 AM Medication List START taking these medications cefdinir 300 mg capsule Commonly known as: OMNICEF Take 1 capsule by mouth twice daily for 7 days. CONTINUE taking these medications acetaminophen 325 mg tablet Commonly known as: TYLENOL AIMOVIG AUTOINJECTOR 140 mg/mL syringe Generic drug: erenumab-aooe amitriptyline 50 mg tablet Commonly known as: ELAVIL aspirin 81 mg chewable tablet atorvastatin 40 mg tablet Commonly known as: LIPITOR budesonide-formoterol 160-4.5 mcg/actuation inhaler Commonly known as: SYMBICORT CALCITONIN (SALMON) NASAL CeleBREX 200 mg capsule Generic drug: celecoxib cloNIDine HCl 0.1 mg tablet Commonly known as: CATAPRES CYMBALTA 60 mg capsule Generic drug: DULoxetine docusate sodium 100 mg capsule Commonly known as: COLACE Take 1 capsule by mouth twice daily as needed for Constipation. EFFEXOR XR 75 mg 24 hr capsule Generic drug: venlafaxine ER enoxaparin 40 mg/0.4 mL Commonly known as: LOVENOX Inject 0.4 mL subcutaneously once daily for 16 days. FASENRA 30 mg/mL injection Generic drug: benralizumab fluticasone 50 mcg/actuation nasal spray Commonly known as: FLONASE Use 2 Sprays in each nostril once daily. gabapentin 800 mg tablet Commonly known as: NEURONTIN levalbuterol 1.25 mg/3 mL nebulizer solution Commonly known as: XOPENEX losartan 100 mg tablet Commonly known as: COZAAR MILK OF MAGNESIA 400 mg/5 mL suspension Generic drug: magnesium hydroxide montelukast 10 mg tablet Commonly known as: SINGULAIR nitrofurantoin monohydrate and macrocrystal 100 mg capsule Commonly known as: MACROBID TAKE 1 CAPSULE BY MOUTH EVERY DAY omeprazole 20 mg capsule Commonly known as: PriLOSEC oxyCODONE IR 5 mg immediate release tablet Commonly known as: ROXICODONE Take 1-2 tablets by mouth every 6 hours as needed for Pain for up to 7 days. potassium chloride ER 20 mEq tablet Commonly known as: K-DUR, KLOR-CON primidone 250 mg tablet Commonly known as: MYSOLINE * albuterol 2.5 mg/3 mL nebulizer solution Commonly known as: PROVENTIL * PROAIR HFA INHALATION rizatriptan 10 mg tablet Commonly known as: MAXALT spironolactone 25 mg tablet Commonly known as: ALDACTONE tamsulosin ER 0.4 mg Commonly known as: FLOMAX Take 2 capsules by mouth at bedtime. tiotropium 18 mcg inhalation capsule Commonly known as: SPIRIVA topiramate 100 mg tablet Commonly known as: TOPAMAX verapamil SR 120 mg CR tablet Commonly known as: CALAN SR, ISOPTIN SR Take 1 tablet by mouth once daily. XYZAL 5 mg tablet Generic drug: levocetirizine * This list has 2 medication(s) that are the same as other medications prescribed for you. Read the directions carefully, and ask your doctor or other care provider to review them with you. Where to Get Your Medications These medications were sent to [facility] [address] [phone] [place] [address] ? cefdinir 300 mg capsule Normal [facility] THERAPY NTon 01-27-2020 THERAPY NT HNO ID: [id number] Author: Yazan (Pt) Miguelina Service: Physical Therapy Author Type: Physical Therapist Type: Therapy (PT/OT/Speech/Resp) Filed: 01/27/2020 11:40 AM Note Text: Physical Therapy Treatment SERVICE DATE: 01/27/2020 SERVICE TIME: 1103 to 1119 ROOM: [place] [address] Recommended Discharge Disposition: Home PT Recommended Discharge Disposition Comments: Patient ambulating with contact guard assist with walker during afternoon session, patient to benefit from Home PT for further strengthening and improvement with range of motion for progressed independence with functional mobility Justification For Post Acute Needs: Anticipate patient will tolerate 3 hours of daily therapy at the time of admission to post-acute setting;Cognition intact;Living the community premorbidly;Motivated;Wi lling to participate Anticipated Discharge Needs: Physical Assist at Home Physical Assist at Home for: Cleaning;Laundry;Shoppin g;Transportation PT 6 Clicks Score: 19 Patient continuing to progress well towards goals, requiring less assistance with bed mobility and transfers. Patient with increased gait distance this session with improved reciprocal gait pattern. Patient on track for Home PT at discharge. Precautions/Activity Restrictions: Weight Bearing Restrictions;Bed/Chair Alarm;Fall Risk Extremity With Weight Bearing Restricted: Right Lower Extremity Right Lower Extremity Weight Bearing Status: WBAT Reason for Hospital Admission: treat Relevant Past Medical History: recent R RONALD, HTN, DVT, UTI, TIA, OA Response to Therapy Interventions: Improved tolerance for activity, Notable progression with functional activities/skills Continue skilled needs due to: Functional mobility/skill impairments Physical Therapy Problem List: Pain;Decreased Range Of Motion;Decreased Strength;Functional Mobility Impairment;Balance Impaired Treatment Interventions: Energy Conservation Training;Joint Mobility;Strengthening;F unctional Mobility Training;Balance Training Home Environment Patient Lives With: Family(son ) Assistance Available: methods time analyst Entry To Home: No Stairs Number Of Stairs To Bed/Bath: 0 Tub/Shower Type: tub shower with shower chair Equipment Owned: Wheeled Walker;Shower Chair Prior Functional Level: Within Functional Limits Prior Functional Level Comments: Patient independent prior to recent admission for R RONALD, patient reports son will be home during day to assist, reports ambulating with walker at skilled facility Patient Report: I feel better today, I am ready to go home CURRENT FUNCTIONAL STATUS: Most recent performance Current Functional Mobility Assist Level Additional Information Rolling Stand By Assistance Supine to Sit Stand By Assistance Sit to Supine Contact Guard Assistance;Additional Information to assist RLE into bed Scooting Stand By Assistance Sit to Stand Contact Guard Assistance;Additional Information cuing for patient to kick right foot forward slightly to avoid hip flexion greater than 90 degrees upon standing Stand to Sit Contact Guard Assistance;Additional Information cues to kick right foot forward and reach back to slowly lower bottom to bed Bed to Chair Toilet/Commode Gait Contact Guard Assistance Gait Device: Wheeled Walker Gait Distance (feet): 200' Stairs Curb Step Car Transfer Blank quesada indicate activity not attempted General Deviations/Observations: Tati decreased;Difficulty changing direction/turning;Step length decreased Balance: Static Sitting;Dynamic Sitting;Static Standing;Dynamic Standing Static Sitting Balance: Good Patient able to maintain balance without handhold support, limited postural sway Dynamic Sitting Balance: Good Patient accepts moderate challenge, able to maintain balance while picking up object off floor Static Standing Balance: Fair Patient able to maintain balance with handhold support, may require occasional minimal assistance Dynamic Standing Balance: Fair Patient accepts minimal challenge, able to maintain balance while turning head/trunk Activity Tolerance: Standing Activity Standing Activity: ambulation Standing Activity Tolerance (in minutes): 7 JH-HLM: 7: Walk 25 feet or more Learning/Educational Needs: Functional Activities/Mobility;Prec autions;Rehabilitation Techniques and Procedures Goals for Plan of Care: Patient /Caregiver Goals: Go Home Able to perform HEP with: Contact Guard Assistance(R RONALD protocol) Transfer supine to/from sit with: Independent Transfer sit to/from stand with: Independent Ambulate with: Independent Distance: 100' intervals Device: Wheeled Walker Progress Toward Goals: Progressing as expected Rehab Potential: Good Patient will be discontinued from Physical Therapy when no further skilled needs are identified in this setting. PLAN: Treatment Frequency (times per week): 7(4-7) Current admission Plan of Care developed with: Patient TREATMENT INTERVENTIONS: Therapy Diagnosis: Reduced mobility-other;Muscle Weakness (generalized);Unsteadine ss on feet Interventions Provided: Therapeutic Exercise (77124);Gait Training (13068) Therapeutic Exercise (19574) Treatment Minutes: 10 $ Therapeutic Exercise (19897) Billed Units: 1 unit Patient completed R total hip arthroplasty protocol (ankle pump, quad set, gluteal set, heel slide, hip abd/add to neutral, short arc quad, long arc quad, hip adductor squeeze) x 10 reps without assist from therapist. Cuing for patient to complete slowly and controlled through full range of motion. Educated patient on posterior hip precautions. Patient recalls 3/3 hip precautions Patient reports 0/10 pain. Patient set up with ice to surgical hip and elevated lower extremity as needed. Gait Training (92420) Treatment Minutes: 6 $ Gait Training (26464) Billed Units: 0 units Cuing for tall erect posture for improved gait mechanics and visual field while ambulating. Instructed patient to continue focusing on reciprocal gait pattern and take time while completing turns using small shuffled steps. Patient with improve distancing with walker, keeping feet within frame without cuing from therapist. Training AND education provided in: Bed mobility, Benefits of in-hospital mobility, Gait pattern, reduction of deviations, Precautions/restrictions education The following therapeutic skills were used: Cues for sequencing/proper technique for activity, Cuing verbal Total Timed Code Treatment Minutes: 16 Total Treatment Time (minutes): 16 Please see discipline specific clinical documentation flowsheet for complete details for this therapy evaluation/treatment. SIGNATURE: Yazan Mcintyre PT PATIENT NAME: Velia Bagley DATE: January 27, 2020 TIME: 11:36 AM Normal [facility] XR PELVIS 1V APon 01-27-2020 XR PELVIS 1V AP Final Report DATE OF EXAM: Jan 27 2020 7:43AM [id number] - XR PELVIS 1V AP / PROCEDURE REASON: Post-operative / post-procedure assessment, asymptomatic Physician Interpretation EXAMINATION: XR PELVIS 1V AP Clinical History: Post-operative / post-procedure assessment, asymptomatic Comparison: 01/10/2020. RESULT: Status post right total hip arthroplasty. The surgical hardware appears in appropriate position. The more distal aspect of right femoral component is not completely imaged. The pubic symphysis appears aligned. The sacroiliac joints are symmetric. No evidence of acute osseous abnormalities within visualized pelvis. IMPRESSION: Status post right total hip arthroplasty. The visualized portion of surgical hardware appears in appropriate position. Criminalist Technician: PSCB Transcribe Date/Time: Jan 27 2020 7:58A Dictated by : NATHAN BELCHER MD This examination was interpreted and the report reviewed and electronically signed by: NATHAN BELCHER MD on Jan 27 2020 8:01AM EST Normal [facility] Basic Metabolic Panelon 09- Anion gap [Moles/Vol] 10 mmol/L Normal 9-18 [facility] Comment on above: Performed By: #### B MP #### [facility] [address] [place], [place] [address] Calcium [Mass/Vol] 8.5 mg/dL Normal 8.5-10.2 [facility] Comment on above: Performed By: #### B MP #### [facility] [address] [place], [place] [address] Chloride [Moles/Vol] 111 mmol/L High 97-105 [facility] Comment on above: Performed By: #### B MP #### [facility] [address] [place], [place] [address] CO2 Blood 19 mmol/L Low 22-30 [facility] Comment on above: Performed By: #### B MP #### [facility] [address] [place], [place] [address] Creatinine [Mass/Vol] 0.88 mg/dL Normal 0.73-1.22 [facility] Comment on above: Performed By: #### B MP #### [facility] [address] [place], [place] [address] Glucose [Mass/Vol] 84 mg/dL Normal 74-99 [facility] Comment on above: Result Comment: The [place] [employer] (ADA) provides guidance for cutoff values for fasting glucose and random glucose. The ADA defines fasting as no caloric intake for at least 8 hours.Fasting plasma glucose results between 100 to 125 mg/dL indicate increased risk for diabetes (prediabetes). Fasting plasma glucose results greater than or equal to 126 mg/dL meet the criteria for diagnosis of diabetes. In the absence of unequivocal hyperglycemia, results should be confirmed by repeat testing. In a patient with classic symptoms of hyperglycemia or hyperglycemic crisis, random plasma glucose results greater than or equal to 200 mg/dL meet the criteria for diagnosis of diabetes. Reference: Standards of Medical Care in Diabetes 2016; [place] [employer]. Diabetes Care. 2016;39(Suppl 1). Performed By: #### B MP #### [facility] [address] [place], [place] [address] Potassium [Moles/Vol] 3.3 mmol/L Low 3.7-5.1 [facility] Comment on above: Performed By: #### B MP #### [facility] [address] [place], [place] [address] Sodium [Moles/Vol] 140 mmol/L Normal 136-144 [facility] Comment on above: Performed By: #### B MP #### [facility] [address] [place], [place] [address] Urea nitrogen [Mass/Vol] 11 mg/dL Normal 9-24 [facility] Comment on above: Performed By: #### B MP #### [facility] [address] [place], [place] [address] Hemogram/Diffon 01-26-2020 Abs Immature Grans 0.08 thou/cmm High 0.00-0.05 [facility] Comment on above: Performed By: #### B MP #### [facility] [address] [place] [address] Abs Neut (ANC) 6.12 thou/cmm High 1.78-5.38 [facility] Comment on above: Performed By: #### B MP #### [facility] [address] [place] [address] Abs. Baso 0.01 thou/cmm Normal 0.01-0.08 [facility] Comment on above: Performed By: #### B MP #### [facility] [address] [place] [address] Abs. [place] 0.52 thou/cmm Normal 0.30-0.82 [facility] Comment on above: Performed By: #### B MP #### [place] [address] Basophils/100 WBC (Bld) 0.1 % Normal [facility] Comment on above: Performed By: #### B MP #### [facility] [address] [place] [address] Eosinophils (Bld) [#/Vol] 0.00 thou/cmm Low 0.04-0.54 [facility] Comment on above: Performed By: #### B MP #### [place] [address] Eosinophils/100 WBC (Bld) 0.0 % Normal [facility] Comment on above: Performed By: #### B MP #### [place] [address] Erythrocyte distribution width (RBC) [Ratio] 15.8 % High 11.6-14.4 [facility] Comment on above: Performed By: #### B MP #### [place] [address] Hematocrit (Bld) [Volume fraction] 27.2 % Low 40.1-51.0 [facility] Comment on above: Performed By: #### B MP #### [place] [address] Hemoglobin (Bld) [Mass/Vol] 9.0 g/dL Low 13.7-17.5 [facility] Comment on above: Performed By: #### B MP #### [facility] [address] [place] [address] Immature Grans 1.00 % Normal [facility] Comment on above: Performed By: #### B MP #### [facility] [address] [place] [address] Lymphocytes (Bld) [#/Vol] 1.11 thou/cmm Normal 0.84-2.85 [facility] Comment on above: Performed By: #### B MP #### [facility] [address] [place] [address] Lymphocytes/100 WBC (Bld) 14.2 % Normal [facility] Comment on above: Performed By: #### B MP #### [place] [address] MCH (RBC) [Entitic mass] 29.9 pg Normal 25.7-32.2 [facility] Comment on above: Performed By: #### B MP #### [facility] [address] [place] [address] MCHC (RBC) [Mass/Vol] 33.1 % Normal 32.3-36.5 [facility] Comment on above: Performed By: #### B MP #### [place] [address] MCV (RBC) [Entitic vol] 90.4 fL Normal 83.2-95.6 [facility] Comment on above: Performed By: #### B MP #### [facility] [address] [place] [address] Monocytes/100 WBC (Bld) 6.6 % Normal [facility] Comment on above: Performed By: #### B MP #### [facility] [address] [place] [address] Platelet mean volume (Bld) [Entitic vol] 8.8 fL Normal 8.7-12.0 [facility] Comment on above: Performed By: #### B MP #### [address] [place], [place] [address] Platelets (Bld) [#/Vol] 186 thou/cmm Normal 141-365 [facility] Comment on above: Performed By: #### B MP #### [facility] [address] [place], [place] [address] RBC (Bld) [#/Vol] 3.01 mil/cmm Low 4.63-6.08 [facility] Comment on above: Performed By: #### B MP #### [facility] [address] [place], [place] [address] RDW SD 51.9 fl High 36.1-45.8 [facility] Comment on above: Performed By: #### B MP #### [facility] [address] [place] [address] Seg Neutrophil 78.1 % Normal [facility] Comment on above: Performed By: #### B MP #### [facility] [address] [place], [place] [address] WBC (Bld) [#/Vol] 7.83 thou/cmm Normal 4.23-9.07 [facility] Comment on above: Performed By: #### B MP #### [facility] [address] [place] [address] PROGRESSon 01-26-2020 PROGRESS HNO ID: [id number] Author: Rich Oates Service: Infectious Disease Author Type: Physician Type: Progress Notes Filed: 01/26/2020 5:39 PM Note Text: INFECTIOUS DISEASE CONSULT NOTE January 25 at 1720 Subjective INTERVAL HISTORY: Patient doing much better. Says strength or the weakness of the infection is almost back to normal. No fevers, rigors, myalgias. No nausea or vomiting or diarrhea. No drug rash or antibiotic complaints. PERTINENT ROS: Positive? improvement in symptoms of infection straight cath patient due to BPH problems and urinary retention; recent right hip RONALD after a fracture that occurred with nearby hardware; Negative? fevers today; nausea or vomiting or diarrhea; dysuria; flank pain; neuromotor deficits; acute joint changes; unusual skin rashes; Antibiotic allergies? Patient did not tell me his allergies but per charting he has Cipro listed as anaphylaxis; penicillin listed as rash; sulfa listed as rash and it rash and itching Tolerates current cephalosporins Current Facility-Administered Medications Medication Dose Route Frequency - potassium chloride ER 20 mEq tab(s) (K-DUR, KLOR-CON) 20 mEq ORAL BID - simethicone, chewable 80 mg tab(s) (MYLICON) 80 mg ORAL QID PRN - acetaminophen 650 mg tab(s) (TYLENOL) 650 mg ORAL q 6 H PRN - NaCl 0.9% iv infusion 100 mL/hr INTRAVENOUS CONTINUOUS - sodium chloride 0.65 % 2 [place] (AYR, OCEAN) 2 [place] EACH NOSTRIL PRN - gabapentin 800 mg cap(s) (NEURONTIN) 800 mg ORAL QID - tamsulosin ER 0.8 mg cap(s) (FLOMAX) 0.8 mg ORAL AT BEDTIME - venlafaxine ER 75 mg cap(s) (EFFEXOR XR) 75 mg ORAL DAILY - tiotropium bromide 2.5 mcg/actuation 1 Puff (SPIRIVA RESPIMAT) 1 Puff INHALATION DAILY - topiramate 200 mg tab(s) (TOPAMAX) 200 mg ORAL 2 times per day - topiramate 100 mg tab(s) (TOPAMAX) 100 mg ORAL 2 times per day - primidone 250 mg tab(s) (MYSOLINE) 250 mg ORAL AT BEDTIME - atorvastatin 40 mg tab(s) (LIPITOR) 40 mg ORAL AT BEDTIME - enoxaparin 40 mg injection (LOVENOX) 40 mg SUBCUTANEOUS DAILY - docusate sodium 100 mg cap(s) (COLACE) 100 mg ORAL BID PRN - montelukast 10 mg tab(s) (SINGULAIR) 10 mg ORAL AT BEDTIME - celecoxib 400 mg cap(s) (CeleBREX) 400 mg ORAL BID - oxyCODONE IR 5-10 mg tab(s) (ROXICODONE) 5-10 mg ORAL q 6 H PRN - aspirin 81 mg chewable tab(s) 81 mg ORAL BID - pantoprazole DR 20 mg tab(s) (PROTONIX) 20 mg ORAL BID AC (0600/1600) - DULoxetine 60 mg cap(s) (CYMBALTA) 60 mg ORAL DAILY - amitriptyline 50 mg tab(s) (ELAVIL) 50 mg ORAL AT BEDTIME - sodium chloride 0.9 % (flush) 3-5 mL (BD POSIFLUSH) 3-5 mL INTRAVENOUS q 12 H - cefTRIAXone 1 g in D5W 100 mL MB+ (ROCEPHIN) 1 g INTRAVENOUS q 24 H - albuterol 2.5 mg /3 mL (0.083 %) 2.5 mg (PROVENTIL) 2.5 mg INHALATION q 4 H PRN - fluticasone-vilanterol 100-25 mcg/dose 1 Inhalation (BREO ELLIPTA) 1 Inhalation INHALATION DAILY - cetirizine 10 mg tab(s) (ZyrTEC) 10 mg ORAL AT BEDTIME Day 2+ total antibiotics Objective PHYSICAL EXAM: Vital Signs: BP 128/78 Pulse 84 Temp 36.6 ?C (97.9 ?F) (Oral) Resp 18 Ht 177.8 cm (5' 10 ) Wt 99.1 kg (218 lb 7.6 oz) SpO2 96% BMI 31.35 kg/m? Temp last 24 hours: Temp (24hrs), Av.7 ?C (99.9 ?F), Min:37.2 ?C (99 ?F), Max:38.2 ?C (100.8 ?F) 01/26/20 0800 01/26/20 1113 01/26/20 1500 01/26/20 1546 Temp: 36.4 ?C (97.5 ?F) 36.6 ?C (97.9 ?F) 36.5 ?C (97.7 ?F) 36.6 ?C (97.9 ?F) Fever on admit 37.9 ?C and afebrile since. Apparently was 105 ?F at the [facility]? cannot awaken and eventually open eyes and talk more but it first just barely answer questions; seems to be ANO x3; vital signs stable; HEENT unremarkable externally Dentition is poor but he states no dental pain or gum problems Neck supple Heart regular without murmur Lungs clear Spine and flanks nontender Overweight abdomen is soft, nontender, no HSM Joints without acute change Skin without drug rashes Neurologically motor functions of cranial nerves and extremities appear to be grossly intact DATA: Diagnostic Tests Reviewed for Today's Visit: Lab Results Component Value Date WBC 7.83 01/26/2020 WBC 13.27 (H) 01/25/2020 WBC 10.61 (H) 01/24/2020 WBC 8.53 01/18/2020 WBC 9.08 (H) 01/17/2020 WBC 7.19 01/02/2020 Creatinine Date Value Ref Range Status 01/26/2020 0.88 0.73 - 1.22 mg/dL Final 01/25/2020 0.86 0.73 - 1.22 mg/dL Final 01/24/2020 0.86 0.73 - 1.22 mg/dL Final 01/18/2020 0.87 0.73 - 1.22 mg/dL Final Estimated Creatinine Clearance: 106.6 mL/min (based on SCr of 0.88 mg/dL). Cultures of January 23 blood negative; Urine culture with Klebsiella pneumoniae resistant to ampicillin, fluoroquinolones, nitrofurantoin and sensitive to other agents Urinalysis White cells are 85 with no bacteria Chest x-ray was clear Impression/Recommendatio ns #1?sepsis-resolved with medical care #2?pyuria and UTI #3? Klebsiella pneumoniae infection #4?comorbidities of recent hip replacement, COPD, TIA history, hypertension, BPH with self cathingDue to retention; low back surgeries #5?greatly complicated by multiple antibiotic allergies which restrict our use of different ones. These include penicillins, quinolones, sulfa. He does tolerate cephalosporins 6.?Leukocytosis-down 7-Antibiotic monitoring?tolerates the so far 8.?Discussed issues with patient #9? Multiple antibiotic classes resistance Regarding his prophylactic nitrofurantoin, I am not running that so I told him to check with his provider they gave it to him. I said there is really not much to switching classes because even though his organism is resistant, he may be preventing other organisms. No matter what drug he uses he will eventually develop resistance and if he eliminates all oral classes of antibiotics he may have to be treated with IV only for every UTI. For his provider giving him the nitrofurantoin, I would still use it but if he develops another infection with nitrofurantoin resistance your options are to either switch him to a third-generation cephalosporin which means he will be untreatable if he gets a UTI on that due to antibiotic resistance and drug allergy. Instead of that if he loses nitrofurantoin by having other resistant infections, I would try fosfomycin 3 g once a week although it is very expensive and the pharmacies have to order it. You may discharge tomorrow if ready after his morning ceftriaxone. Send him home with cefdinir 300 mg orally twice daily through February 02 which is 10 days treatment because he is a complicated UTI due to straight cath situation No ID follow-up needed after discharge Rich Oates MD 01/26/2020 5:39 PM pgr [phone] Normal [facility] PROGRESS HNO ID: [id number] Author: Fanta Pettit Service: Hospital Medicine Author Type: Physician Type: Progress Notes Filed: 01/26/2020 6:01 PM Note Text: DEPARTMENT OF HOSPITAL MEDICINE PROGRESS NOTE SERVICE DATE: 01/26/2020 SERVICE TIME: 2:00 PM Hospital Medicine/Primary Attending: Fanta Pettit, DO NIGHT AND WEEKEND COVERAGE: After 7pm please page [phone] CHIEF COMPLAINT: Fevers SUBJECTIVE: Patient seen and examined. He states his migraine has resolved. He states that he feels much better overall and would like to go home Patient denies CP, SOB, fevers, chills, nausea, or emesis. . OBJECTIVE: PHYSICAL EXAM: BP 113/73 Pulse 87 Temp (Src) 97.7 (Oral) Resp 20 Ht 5' 10 (1.78m) Wt 218 lb 7.6 oz (99.1kg) SpO2 95% BMI 31.35 kg/(m2). O2 Therapy: Room Air Physical Exam Constitutional: General: He is not in acute distress. Comments: Patient laying in bed with eyes closed minimal answers. Appears to be in pain HENT: Head: Normocephalic and atraumatic. Cardiovascular: Rate and Rhythm: Normal rate and regular rhythm. Pulses: Normal pulses. Heart sounds: No murmur. No gallop. Pulmonary: Effort: No respiratory distress. Breath sounds: No wheezing or rales. Abdominal: General: There is no distension. Tenderness: There is no abdominal tenderness. There is no guarding. Comments: Large rounded Musculoskeletal: General: No swelling. Skin: General: Skin is warm and dry. Neurological: General: No focal deficit present. Mental Status: He is alert and oriented to person, place, and time. Psychiatric: Mood and Affect: Mood normal. MEDICATIONS: Current Facility-Administered Medications Medication Dose Route Frequency - acetaminophen 650 mg tab(s) (TYLENOL) 650 mg ORAL q 6 H PRN - NaCl 0.9% iv infusion 100 mL/hr INTRAVENOUS CONTINUOUS - sodium chloride 0.65 % 2 [place] (AYR, OCEAN) 2 [place] EACH NOSTRIL PRN - gabapentin 800 mg cap(s) (NEURONTIN) 800 mg ORAL QID - tamsulosin ER 0.8 mg cap(s) (FLOMAX) 0.8 mg ORAL AT BEDTIME - venlafaxine ER 75 mg cap(s) (EFFEXOR XR) 75 mg ORAL DAILY - tiotropium bromide 2.5 mcg/actuation 1 Puff (SPIRIVA RESPIMAT) 1 Puff INHALATION DAILY - topiramate 200 mg tab(s) (TOPAMAX) 200 mg ORAL 2 times per day - topiramate 100 mg tab(s) (TOPAMAX) 100 mg ORAL 2 times per day - primidone 250 mg tab(s) (MYSOLINE) 250 mg ORAL AT BEDTIME - atorvastatin 40 mg tab(s) (LIPITOR) 40 mg ORAL AT BEDTIME - enoxaparin 40 mg injection (LOVENOX) 40 mg SUBCUTANEOUS DAILY - docusate sodium 100 mg cap(s) (COLACE) 100 mg ORAL BID PRN - montelukast 10 mg tab(s) (SINGULAIR) 10 mg ORAL AT BEDTIME - celecoxib 400 mg cap(s) (CeleBREX) 400 mg ORAL BID - oxyCODONE IR 5-10 mg tab(s) (ROXICODONE) 5-10 mg ORAL q 6 H PRN - aspirin 81 mg chewable tab(s) 81 mg ORAL BID - pantoprazole DR 20 mg tab(s) (PROTONIX) 20 mg ORAL BID AC (0600/1600) - DULoxetine 60 mg cap(s) (CYMBALTA) 60 mg ORAL DAILY - amitriptyline 50 mg tab(s) (ELAVIL) 50 mg ORAL AT BEDTIME - sodium chloride 0.9 % (flush) 3-5 mL (BD POSIFLUSH) 3-5 mL INTRAVENOUS q 12 H - cefTRIAXone 1 g in D5W 100 mL MB+ (ROCEPHIN) 1 g INTRAVENOUS q 24 H - albuterol 2.5 mg /3 mL (0.083 %) 2.5 mg (PROVENTIL) 2.5 mg INHALATION q 4 H PRN - fluticasone-vilanterol 100-25 mcg/dose 1 Inhalation (BREO ELLIPTA) 1 Inhalation INHALATION DAILY - cetirizine 10 mg tab(s) (ZyrTEC) 10 mg ORAL AT BEDTIME - potassium chloride ER 20 mEq tab(s) (K-DUR, KLOR-CON) 20 mEq ORAL BID DATA: Diagnostic tests reviewed for today's visit: CBC: Recent Labs 01/26/20 0615 WBC 7.83 RBC 3.01* HB 9.0* HCT 27.2* PLT 186 MCV 90.4 MCH 29.9 MPV 8.8 RDW 15.8* Coags: No results for input(s): PT, INR, APTT in the last 24 hours. BMP: Recent Labs 01/26/20 0615 NA 140 K 3.3* CHLOR 111* CO2 19* BUN 11 CREAT 0.88 GLUC 84 CMP: Recent Labs 01/26/20 0615 NA 140 K 3.3* CHLOR 111* CO2 19* BUN 11 CREAT 0.88 GLUC 84 CA 8.5 ANION 10 Cardiac Enzymes: No results for input(s): CK, MB, CKMB, TROPT in the last 24 hours. Liver Function, Amylase, Lipase: No results for input(s): TPROT, ALB, ALT, AST, ALKPHOS, TBILI, AMYLASE, LIPASE, LACTATE in the last 24 hours. MG/PHOS: No results for input(s): MG, P in the last 24 hours. Renal Panel: Recent Labs 01/26/20 0615 CREAT 0.88 BUN 11 GLUC 84 CA 8.5 CHLOR 111* K 3.3* CO2 19* NA 140 Heme: No results for input(s): RETICP, ABSRETIC, LD, BRIAN, FE, TIBC, TRANSFERSAT in the last 24 hours. No results found for: UALBCR Assessment/Plan 60-year-old male with a past medical history that includes recent right total hip replacement (01/16/2020), COPD, BPH and urinary retention, TIA, DVT who presented to [facility] with fevers. Found to need criteria for sepsis #Sepsis possibly 2/2 UTI Improving WBC -Continue ceftriaxone for 1 more day and then switch to cefdinir 300 mg p.o. twice daily through February 02 for total of 10 days, per infectious disease -D/C in am #Recent hip replacement 01/16/2020 - Ortho consults for recs: - Ice to right hip as needed - Dressing/splint status: Aquacel dressing R hip - Weightbearing status: WBAT RLE - Pain control - No acute orthopaedic interventions #COPD Not in acute exacerbation -Continue Breo Ellipta -Continue Spiriva -Aerosols as needed - home Singulair #TIA Continue home aspirin and atorvastatin #Migraines -Continue home Celebrex and topiramate #Neuropathic pain -Continue home gabapentin, duloxetine, amitriptyline #GERD -Continue pantoprazole #hypokalemia -replete Medication and Non-Pharmacologic VTE Prophylaxis/Anticoagulan ts Anticoagulant AND Antiplatelet Medications (From admission, onward) Start Dose Route Frequency Ordered Stop 01/25/20 09 enoxaparin 40 mg injection (LOVENOX) 40 mg SUBCUTANEOUS DAILY 01/25/2022302/05/20 0859 01/25/20 023 aspirin 81 mg chewable tab(s) 81 mg ORAL 2 TIMES DAILY 01/25/20 0224 -- 01/25/20 0230 vte non-pharmacologic prophylaxis - none indicated ([place], [place]) 01/25/20 023 vte current anticoag therapy ([place], [place]) 01/25/20 023 activity - mobilize patient ([place], [place]) Lines, Drains, and Airways Line Peripheral 01/24/20 Admission to Hospital Left Forearm 20 Gauge 2 days Peripheral 01/24/20 1730 Right Antecubital 20 Gauge 1 day Reviewed lines and needs to be continued: REASONS: Intravenous antibiotics VTE Prophylaxis: Lovenox 40mg Sub Q Daily Disposition: To be determined Functional Status Prior to Admit: Medical Necessity for Continued Hospitalization y Plan of care discussed with: Provider, RN, Patient SIGNATURE: Fanta Pettit DO PATIENT NAME: Velia Bagley DATE: January 26, 2020 TIME: 6:00 PM PAGER/CONTACT #: Team color pager Disclaimer: Portions of this note may have been generated using [employer] voice recognition software. Reasonable efforts were made to correct any dictation errors that resulted due to the programming of this software but some may still be present. Normal [facility] THERAPY NTon 01-26-2020 THERAPY NT HNO ID: [id number] Author: Marta Ohr/Fiorella Garza Service: Occupational Therapy Author Type: Occupational Therapist Type: Therapy (PT/OT/Speech/Resp) Filed: 01/26/2020 10:48 AM Note Text: OCCUPATIONAL THERAPY MISSED VISIT SERVICE DATE: 01/26/2020 SERVICE TIME: 1035 to 1035 ROOM: [place] [address] Attempted Evaluation. Patient not seen due to Declined.Education provided in role of OT in acute hospital setting to facilitate safety and participation in self-care tasks with assisting with discharge planning. Patient declines OT services stating he feels is had no OT needs at this time. OT to sign off. SIGNATURE: Marta Garza OTR/L PATIENT NAME: Velia Bgaley DATE: January 26, 2020 TIME: 10:48 AM Normal [facility] XR CHEST 1V FRONTALon 2019 XR CHEST 1V FRONTAL Final Report DATE OF EXAM: Jan 26 2020 6:27AM [id number] - XR CHEST 1V FRONTAL / PROCEDURE REASON: Fever of unknown origin Physician Interpretation EXAMINATION: CHEST RADIOGRAPH (SINGLE VIEW AP OR PA) CLINICAL HISTORY: Fever of unknown origin MQ: [id number] Comparison: 01/24/2020. RESULT: Limitations: Apical lordotic patient position and body habitus/underpenetration . Lines, tubes, and devices: Monitoring wires overlie the chest. Lungs and pleura: No parenchymal consolidation. Mild elevated right hemidiaphragm. No pleural effusion. Cardiomediastinal silhouette: Stable cardiomediastinal silhouette. Other: None. IMPRESSION: No acute radiographic abnormality. Criminalist Technician: HOLLY Transcribe Date/Time: Jan 26 2020 7:16A Dictated by : JAYANT GUTHRIE MD This examination was interpreted and the report reviewed and electronically signed by: JAYANT GUTHRIE MD on Jan 26 2020 7:18AM EST Normal [facility] Basic Metabolic Panelon - Anion gap [Moles/Vol] 11 mmol/L Normal 9-18 [facility] Comment on above: Performed By: #### U RIN2 #### [address] [address] Calcium [Mass/Vol] 7.6 mg/dL Low 8.5-10.2 [facility] Comment on above: Performed By: #### U RIN2 #### [address] [address] Chloride [Moles/Vol] 108 mmol/L High 97-105 [facility] Comment on above: Performed By: #### U RIN2 #### [facility] [address] [place], [place] [address] CO2 Blood 17 mmol/L Low 22-30 [facility] Comment on above: Performed By: #### U RIN2 #### [facility] [address] [place], [place] [address] Creatinine [Mass/Vol] 0.86 mg/dL Normal 0.73-1.22 [facility] Comment on above: Performed By: #### U RIN2 #### [facility] [address] [place], [place] [address] Glucose [Mass/Vol] 109 mg/dL High 74-99 [facility] Comment on above: Result Comment: The [place] [employer] (ADA) provides guidance for cutoff values for fasting glucose and random glucose. The ADA defines fasting as no caloric intake for at least 8 hours.Fasting plasma glucose results between 100 to 125 mg/dL indicate increased risk for diabetes (prediabetes). Fasting plasma glucose results greater than or equal to 126 mg/dL meet the criteria for diagnosis of diabetes. In the absence of unequivocal hyperglycemia, results should be confirmed by repeat testing. In a patient with classic symptoms of hyperglycemia or hyperglycemic crisis, random plasma glucose results greater than or equal to 200 mg/dL meet the criteria for diagnosis of diabetes. Reference: Standards of Medical Care in Diabetes 2016; [place] [employer]. Diabetes Care. 2016;39(Suppl 1). Performed By: #### U RIN2 #### [facility] [address] [place], [place] [address] Potassium [Moles/Vol] 3.8 mmol/L Normal 3.7-5.1 [facility] Comment on above: Performed By: #### U RIN2 #### [facility] [address] [place], [place] [address] Sodium [Moles/Vol] 136 mmol/L Normal 136-144 [facility] Comment on above: Performed By: #### U RIN2 #### [facility] [address] [place], [place] [address] Urea nitrogen [Mass/Vol] 11 mg/dL Normal 9-24 [facility] Comment on above: Performed By: #### U RIN2 #### [facility] [address] [place] [address] CASE MGT INIT Mio 2019 CASE MGT INIT INES HNO ID: [id number] Author: Saira (Rn) BULL Chavez Service: Care Management Author Type: Registered Nurse Type: Care Mgt Initial Assessment Filed: 01/25/2020 12:12 PM Note Text: CARE MANAGEMENT: ASSESSMENT AND DISCHARGE PLAN SERVICE DATE: January 25, 2020 SERVICE TIME: 12:05 PM PRIMARY CARE PHYSICIAN: Rachel Rayo MD ADMISSION STATUS: Inpatient Needs Prior to Discharge: To Be Determined;Accepting Facility;Facility or Agency Choices;Insurance Authorization;Home Care Order;Discharge Transportation [facility] Stated Goals: To have reduction in symptoms;To return home to life as it was Health Insurance: [employer] Health Issues Impacting Discharge Plan: Uncontrolled;Newly diagnosed Uncontrolled: shaking Newly Diagnosed: sepsis Last Discharge Date: 01/21/20 Is this Within the Past 30 days? Last discharge within 30 days: Yes Is this a planned readmission?: No Unplanned Reason: Recurring symptoms of underlying disease Followed Up with Appointment Prior to Admission: Patient scheduled, but readmitted prior Advance Directive: Current Advance Directive: Health Care Power of Cardiology Clinical Consultant In Chart: No Line Out Worker Attempted to Assist with AD Completion: Yes Action: Education Provided Health LiteracyHow often do you need to have someone help you when you read instructions, pamphlets, or other written material from your doctor or pharmacy? : 2 - Rarely How confident are you filling out medical forms by yourself?: 2 - Quite a bit If Patient scores > 3 on either question, the following interventions were put into place:: Patient did not score > 3 on either question. Baseline Mental Status Prior to this Illness what was the patient's Baseline Mental Status?: Alert AND Oriented Prior to this illness, has anyone described the patient having any of the following behaviors?: Not Applicable Relationship of the informant to the patient:: Self Functional Status: Independent Does Patient Currently Receive Any Community Services or Home Care?: None Equipment Prior to Admission: Walker;Cane;Aerosols/Int ermittent positive breathing/Respiratory Treatments Location and Dates: Admitted from [facility] SOCIAL: Living Arrangements: Nursing Facility Lives With: Alone Financial Resources: EmployedPrimary Contact: Extended Emergency Contact Information Primary Emergency Contact: Teri Bagley Relation: Daughter Secondary Emergency Contact: Adams Bagley Mobile Relation: Son Supportive Patient Contact:: Unable to assess at this time Contact Resources: Family Social Needs Food insecurity Worry: Never true Inability: Never true Resources Needed: No Social Needs Financial resource strain: Not hard at all Social Needs Transportation needs Medical: No Non-medical: No Caregiver AssessmentCaregiver is ready, willing and able to meet the patient's needs as recommended by the inter-professional team:: (Lives with son - unknown at this time.) Patient's transition needs and plan for meeting these needs: Return to SNF vs Home with HC Patient's perception of need for this admission: shaking Medication Adherance I am convinced of the importance of my prescription medication: 0 - Agree Completely I worry that my prescription medication will do more harm than good to me : 0 - Disagree Mostly I feel financially burdened by my [id number] expenses for my prescription medication:: 0 - Disagree Mostly Risk Score: 0 Patient is categorized as: Low risk < 2 Are you interested in bedside delivery of your medications? Yes Is Patient Psychosocially Complex?: No ASSESSMENT AND PLAN: Medical Needs: Medical Needs: Two or more chronic diseases Psychosocial Needs: Psychosocial Needs: None FREEDOM OF CHOICE EXPLAINED: [place] of Choice Given: Yes Level of Care Discussed: Home Care Financial Disclosure Provided: Yes Provider List: Home Care Provider list within the patient's requested geographic area shared with the patient/family: No Quality and resource use metrics shared with the patient that are relevant to the patient's goals of care and treatment preferences:: No Reason: Patient prefers previous homecare agency POTENTIAL TRANSITION PLANS Home;Home Care Patient just here and discharged to [facility] on 01/20. Now readmitted 3 days later. Wants to go home, not return to [facility] at discharge. Patient previously from home with his son. Was indep with ADL's previously, driving, working. Has walker, cane, nebulizer at home. Dtr. to transport at discharge. SIGNATURE: Saira Chavez RN PATIENT NAME: Velia Bagley DATE: January 25, 2020 TIME: 12:05 PM PAGER/CONTACT #: [phone] [facility] CONSULTon 01-25-2020 CONSULT HNO ID: [id number] Author: Rich Oates Service: Infectious Disease Author Type: Physician Type: Consults Filed: 01/25/2020 2:00 PM Note Text: INFECTIOUS DISEASE CONSULT NOTE SERVICE DATE: 01/25/2020 SERVICE TIME: 11:10 AM Consult for sepsis possible UTI Subjective INTERVAL HISTORY: 60-year-old white male who for the pretty much the whole interview lying in bed with his eyes shut giving simple answers but not giving much history. He was in a rehab center because he is recently had a right total hip replacement (January 16, 2020) after a fracture with prior femur hardware. He was discharged around January 20. Patient is listed as having asthma but somebody's notes that COPD to which the patient actually agreed stating he was secondhand smoke, and has had UTI in the past and TIA and acute DVT prior to 2015. He came in through the ED late afternoon on the due to fever in the rehab center which went up to 105 ?F but in the ED on arrival was 99.5 ?F and he also had tachycardia in the 140s and difficulty finding the right words. The patient states that before that he was doing fine and going through rehab. He states that he woke up the morning of admission doing fine and developed these problems including the rigors during the day. He denied any increased shortness of breath over his baseline dyspnea on exertion, new sputum, hemoptysis, nausea vomiting or diarrhea, dysuria, flank pain, suprapubic pain. Patient does straight cathing 3 times a day due to urinary retention from BPH. He states his urine had not turned foul or cloudy that he knows of. His respirators in the ED were 29 initially. Lactate was only 1.9 at the time they were concerned for UTI due to 89 white cells although there were no bacteria. With the recent hip surgery he apparently did not have any signs of infection of the incision nor was he complaining of any increase in hip pain over his normal postop pain. Orthopedics evaluated him and did not find any reason for infection of the new artificial hip. His initial antibiotics were vancomycin and cefepime then switched to ceftriaxone. Today his fevers are down he has no rigors he still somewhat weak. PERTINENT ROS: Positive? fevers now decreasing; rigors now gone; straight cath patient due to BPH problems and urinary retention; recent right hip RONALD after a fracture that occurred with nearby hardware; Negative? 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 Patient did not tell me his allergies but per charting he has Cipro listed as anaphylaxis; penicillin listed as rash; sulfa listed as rash and it rash and itching Tolerates current cephalosporins Current Facility-Administered Medications Medication Dose Route Frequency - acetaminophen 650 mg tab(s) (TYLENOL) 650 mg ORAL q 6 H PRN - NaCl 0.9% iv infusion 100 mL/hr INTRAVENOUS CONTINUOUS - sodium chloride 0.65 % 2 [place] (AYR, OCEAN) 2 [place] EACH NOSTRIL PRN - gabapentin 800 mg cap(s) (NEURONTIN) 800 mg ORAL QID - tamsulosin ER 0.8 mg cap(s) (FLOMAX) 0.8 mg ORAL AT BEDTIME - venlafaxine ER 75 mg cap(s) (EFFEXOR XR) 75 mg ORAL DAILY - tiotropium bromide 2.5 mcg/actuation 1 Puff (SPIRIVA RESPIMAT) 1 Puff INHALATION DAILY - topiramate 200 mg tab(s) (TOPAMAX) 200 mg ORAL 2 times per day - topiramate 100 mg tab(s) (TOPAMAX) 100 mg ORAL 2 times per day - primidone 250 mg tab(s) (MYSOLINE) 250 mg ORAL AT BEDTIME - enoxaparin 40 mg injection (LOVENOX) 40 mg SUBCUTANEOUS DAILY - docusate sodium 100 mg cap(s) (COLACE) 100 mg ORAL BID PRN - montelukast 10 mg tab(s) (SINGULAIR) 10 mg ORAL AT BEDTIME - celecoxib 400 mg cap(s) (CeleBREX) 400 mg ORAL BID - oxyCODONE IR 5-10 mg tab(s) (ROXICODONE) 5-10 mg ORAL q 6 H PRN - aspirin 81 mg chewable tab(s) 81 mg ORAL BID - pantoprazole DR 20 mg tab(s) (PROTONIX) 20 mg ORAL BID AC (0600/1600) - DULoxetine 60 mg cap(s) (CYMBALTA) 60 mg ORAL DAILY - amitriptyline 50 mg tab(s) (ELAVIL) 50 mg ORAL AT BEDTIME - sodium chloride 0.9 % (flush) 3-5 mL (BD POSIFLUSH) 3-5 mL INTRAVENOUS q 12 H - cefTRIAXone 1 g in D5W 100 mL MB+ (ROCEPHIN) 1 g INTRAVENOUS q 24 H - albuterol 2.5 mg /3 mL (0.083 %) 2.5 mg (PROVENTIL) 2.5 mg INHALATION q 4 H PRN - fluticasone-vilanterol 100-25 mcg/dose 1 Inhalation (BREO ELLIPTA) 1 Inhalation INHALATION DAILY Day 1+ total antibiotics and today is just on ceftriaxone Objective PHYSICAL EXAM: Vital Signs: BP 103/62 Pulse 101 Temp 37.2 ?C (99 ?F) (Oral) Resp 18 Ht 177.8 cm (5' 10 ) Wt 99.1 kg (218 lb 7.6 oz) SpO2 94% BMI 31.35 kg/m? Temp last 24 hours: Temp (24hrs), Av.7 ?C (99.9 ?F), Min:37.2 ?C (99 ?F), Max:38.2 ?C (100.8 ?F) 01/24/20 2352 01/25/20 0109 01/25/20 0259 01/25/20 1046 Temp: (!) 38.2 ?C (100.8 ?F) 37.9 ?C (100.2 ?F) 37.7 ?C (99.9 ?F) 37.2 ?C (99 ?F) Fever on admit 37.9 ?C and afebrile since. Apparently was 105 ?F at the [facility]? cannot awaken and eventually open eyes and talk more but it first just barely answer questions; seems to be ANO x3; vital signs stable; HEENT unremarkable externally Dentition is poor but he states no dental pain or gum problems Neck supple Heart regular without murmur Lungs clear Spine and flanks nontender Overweight abdomen is soft, nontender, no HSM Joints without acute change Skin without drug rashes Neurologically motor functions of cranial nerves and extremities appear to be grossly intact DATA: Diagnostic Tests Reviewed for Today's Visit: Lab Results Component Value Date WBC 13.27 (H) 01/25/2020 WBC 10.61 (H) 01/24/2020 WBC 8.53 01/18/2020 WBC 9.08 (H) 01/17/2020 WBC 7.19 01/02/2020 WBC 4.39 10/20/2019 Creatinine Date Value Ref Range Status 01/25/2020 0.86 0.73 - 1.22 mg/dL Final 01/24/2020 0.86 0.73 - 1.22 mg/dL Final 01/18/2020 0.87 0.73 - 1.22 mg/dL Final 01/17/2020 1.01 0.73 - 1.22 mg/dL Final Estimated Creatinine Clearance: 109.1 mL/min (based on SCr of 0.86 mg/dL). Cultures of January 23 blood and urine are pending so far Urinalysis White cells are 85 with no bacteria Chest x-ray was clear Impression/Recommendatio ns #1?sepsis criteria on admission but now improving. Source unknown although he does have pyuria. It would be reasonable to repeat a chest x-ray tomorrow to see if there is a delayed infiltrate although is not having any respiratory issues he states that 6 to 12 months ago he had aspirated once #2?pyuria and presumptive UTI #3?presumptive gram-negative mehdi infection on ceftriaxone #4?comorbidities of recent hip replacement, COPD, TIA history, hypertension, BPH with self cathingDue to retention; low back surgeries #5?greatly complicated by multiple antibiotic allergies which restrict our use of different ones. These include penicillins, quinolones, sulfa. He does tolerate cephalosporins 6.?Leukocytosis 7-Antibiotic monitoring?tolerates the so far 8.?Discussed issues with patient Thank you for allowing us to consult SIGNATURE: Rich Oates MD PATIENT NAME: Velia Bagley DATE: January 25, 2020 TIME: 1:48 PM PAGER/CONTACT #: [phone] [facility] ED PROV NOTEon 01-25-2020 ED PROV NOTE HNO ID: [id number] Author: Abby Pisano MD Service: Emergency Medicine Author Type: Physician Type: ED Provider Notes Filed: 01/25/2020 12:09 AM Note Text: Brief HPI: Velia Bagley is a 60 year old male with a PMH as documented below who presents for evaluation of fever. The patient recently had a hip replacement. He is currently at rehab. The patient was noted to be febrile today. He was also found to be tachycardic. He has baseline tremors which have worsened. The patient is alert and oriented x3 and answering questions. He does continue to have some mild hip discomfort. He denies any cough. He reports baseline shortness of breath due to his COPD and asthma which is unchanged. He denies abdominal pain, nausea or vomiting. He denies any abdominal pain. He does self cath due to BPH. He states he does have a history of a DVT previously. He reports a mild leg swelling but denies calf pain. Denies pleuritic chest pain. 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 He is speaking in full sentences. No accessory muscle use. He looks as if he does not feel well but is cooperative and answering questions appropriately HEENT: Mucous membranes dry. Neck: Supple. Normal range of motion. Cardiovascular: Heart tachycardic. Pulmonary: Lungs clear to auscultation bilaterally without wheezes, rhonchi as well as rales. Gastrointestinal: Abdomen soft, nontender, nondistended with normal active bowel sounds. No rebound, guarding or peritoneal signs. Genitourinary: No CVA tenderness. Muscle skeletal: Incision to the right leg is clean dry intact. There is no discharge or drainage. No calf tenderness or lower extremity edema. MDM: 60-year-old male presenting febrile, tachypneic, tachycardic from the nursing facility. He is alert and oriented and following commands. He recently had a hip surgery. Patient had an IV established and given IV fluids, he is tachypneic tachycardic and febrile thus sepsis team activated. Blood cultures obtained. Leukocytosis 10.61. Lactate of 1.9. Patient given IV fluids. He was started on broad-spectrum antibiotics cefepime as well as vancomycin. Urinalysis concerning for infection. With his tachypnea as well as his tachycardia, we also obtain a VQ scan due to his allergy of iodine. Low probability. With his recent hip surgery, we spoke with orthopedics and they evaluated him. No interventions needed. Patient admitted to telemetry for further work-up and management. Heart rate improved with the IV fluids and interventions. See resident/PA note for disposition details Abby Pisano MD 01/25/20 0009 [facility] HISTORY PHYSICALon 0 HISTORY PHYSICAL HNO ID: [id number] Author: Liv Andrade APRN.JACLYN Service: Hospital Medicine Author Type: Nurse Practitioner Type: HANDP Filed: 01/25/2020 1:59 AM Note Text: -------- Attestation signed by Thom Pascual DO at 01/25/2020 3:17 AM Patient independently seen and examined. Chart reviewed and case discussed with nurse practitioner, I agree with the nurse practitioner's note as written with additional comments as below. Patient is a pleasant 60-year-old male with past medical history significant for TIA, chronic straight cathing, history DVT who presents with complaint of shaking. The patient reports that symptoms began at 220 this afternoon. He denies any pain. He did recently have surgery on the for his hip was evaluated in the ER by orthopedics. At the nursing facility he has fever of 105 documented. He has been having some cloudy urine. He otherwise denies headache, lightheadedness, dizziness, chest pain, shortness of breath. Exam: GENERAL: tremulous, alert, in no acute distress, well-hydrated, well nourished. SKIN: Skin color, texture, turgor normal, no suspicious rashes or lesions HEAD: Normocephalic, atraumatic EYES: Anicteric sclera. Pupils are equally round and reactive to light. Extraocular movements are intact. EARS: External ears normal, canals clear NOSE/SINUSES: Nares normal, septum midline, mucosa normal, no drainage or sinus tenderness OROPHARYNX: Lips, mucosa, and tongue normal, teeth and gums normal, oropharynx normal NECK: Supple, no JVD LUNGS: Clear to auscultation with no wheezes, rales or rhonchi. No retractions. HEART: Tachycardic, regular rhythm without murmur, gallop, or rubs. No ectopy ABDOMEN: Soft NT, ND, NM EXTREMITIES: NT, No LE edema MUSCULOSKELETAL: No joint swelling, deformity, or tenderness. Right hip surgical incision, steri strips intact, no drainage, erythema, swelling, or TTP PULSES: Normal NEURO: AANDO x 3, moves all 4 extremities Plan: This is a 60yo M w/ #Sepsis 2/2 #2 #Urinary tract infection #Recent right hip surgery #COPD currently on O2-wean as tolerated-no dyspnea reported-does not appear in exacerbation Plan: -Continue IV Rocephin -IV hydration -Wean O2 -DuoNeb PRN -Incentive spirometer -ID consult -Appreciate Ortho recommendations -Tylenol for fevers -Monitor culture results -------- [facility] MEDICINE HISTORY AND PHYSICAL EXAM SERVICE DATE: 01/24/2020 SERVICE TIME: 11:18 PM Primary Care Physician: Rachel Rayo MD NIGHT AND WEEKEND COVERAGE: From 7am - 7pm, please call Sound attending After 7pm, please call cross cover pager #[phone] Subjective CHIEF COMPLAINT: Fever HPI: This is a 60 year old male with a PMH of asthma, COPD, TIA, HTN, BPH, urinary retention straight cath's, recent right femoral fracture s/p total hip replacement 01/15 that presented from [facility] rehab facility for fever. Pt reports chills that started earlier today. Per EMS he had a fever of 105 F at [facility]. Pt reports cloudy urine and the urge to straight cath more frequently. He has prior history of sepsis and UTI. Denies CP, palpitations, dizziness, SOB, cough, abdominal pain, nausea, vomiting. Pt was tachycardic and BP was in the 90's systolic in ED. WBC were elevated at 10.61, UA positive for leukocytes and WBC. 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 Multiple blood clots before (3-4). - Hypertension Mother - Heart Failure Father 72 of CHF. 2 OR before that - Parkinson?s Disease Father 68 - Prostate Cancer Brother - Parkinson?s Disease Paternal Grandfather - Diabetes No Family History Social History Tobacco Use - Smoking status: Never Smoker - Smokeless tobacco: Never Used - Tobacco comment: second hand smoke from father. Substance Use Topics - Alcohol use: No - Drug use: No HOME MEDICATIONS: (Not in a hospital admission) ALLERGIES Allergen Reactions - Acetaminophen Swelling - Avocado Swelling - Baclofen Other: See Comments Dizziness and full body weakness - Candasartan [Other] Rash - Chocolate Unknown - Ciprofloxacin (Bulk) Anaphylaxis - Grass Pollen Unknown - Indocin [Indomethac* Rash - Ivp Dye [Iodine] Anaphylaxis - Penicillins Rash - [place]ima Oil Unknown - Propranolol Other: See Comments Severe low bp and kidneys shutting down. - Sulfa (Sulfonamide * Rash, Itching - Valium [Diazepam] Other: See Comments Depression REVIEW OF SYSTEM: PAIN ASSESSMENT: Negative for pain, history of chronic pain, or current treatment for a chronic pain condition. GENERAL: No weight loss, malaise. + fever, chills HEENT: Negative for frequent or significant headaches, No changes in hearing or vision, no nose bleeds or other nasal problems NECK: Negative for lumps, goiter, pain and significant neck swelling RESPIRATORY: Negative for cough, hemoptysis, wheezing, COPD, dyspnea or shortness of breath CARDIOVASCULAR: Negative for chest pain, leg swelling, hypertension, CHF or palpitations GI: No nausea, vomiting, or diarrhea : No history of dysuria, frequency or incontinence. + urgency, cloudy urine MUSCULOSKELETAL: Negative for joint pain or swelling, back pain or muscle pain SKIN: Negative for lesions, rash, and itching ENDOCRINE: Negative for cold or heat intolerance, polyuria, polydipsia and goiter NEURO: No history of headaches, syncope, paralysis, seizures or tremors Objective PHYSICAL EXAM: BP 106/56 Pulse 106 Temp (Src) 100.2 (Oral) Resp 18 Ht 5' 10 (1.78m) Wt 218 lb 7.6 oz (99.1kg) SpO2 98% BMI 31.35 kg/(m2). O2 Therapy: Nasal Cannula, Liters: 4 GENERAL: Well appearing, alert, in no acute distress, well-hydrated, well nourished. SKIN: Skin color, texture, turgor normal, no suspicious rashes or lesions HEAD: Normocephalic, atraumatic EYES: Anicteric sclera. Pupils are equally round and reactive to light. Extraocular movements are intact. EARS: External ears normal, canals clear NOSE/SINUSES: Nares normal, septum midline, mucosa normal, no drainage or sinus tenderness OROPHARYNX: Lips, mucosa, and tongue normal, teeth and gums normal, oropharynx normal NECK: Supple, no adenopathy; thyroid symmetric, normal size, no bruits LUNGS: Clear to auscultation with no wheezes, rales or rhonchi. No retractions. HEART: Tachycardic, regular rhythm without murmur, gallop, or rubs. No ectopy ABDOMEN: Normal abdominal exam, Abdomen soft, non-tender. Bowel sounds normal. No masses, organomegaly EXTREMITIES: No deformities, edema, skin discoloration, clubbing or cyanosis. Good capillary refill. MUSCULOSKELETAL: No joint swelling, deformity, or tenderness. Right hip surgical incision, steri strips intact, no drainage, erythema, swelling, or TTP PULSES: Normal NEURO: AANDO x 3, moves all 4 extremities, Sensation grossly intact. DATA: Diagnostic tests reviewed for today's visit: Most recent labs and imaging results. 01/24/2020 ?6:22 PM - Radiology, Oru In Impression IMPRESSION: No acute radiographic abnormality. Criminalist Technician: HOLLY ? Transcribe Date/Time: Jan 24 2020 ?6:19P Dictated by : ALIX COLBY MD This examination was interpreted and the report reviewed and electronically signed by: ALIX COLBY MD on Jan 24 2020 ?6:20PM ?EST Results-Findings * * *Final Report* * * DATE OF EXAM: Jan 24 2020 ?6:15PM ? AKX ? 5290 ?- ?XR CHEST 1V FRONTAL ? / PROCEDURE REASON: Acute respiratory illness ?? ? * * * * Physician Interpretation * * * * ?EXAMINATION: ?CHEST RADIOGRAPH (SINGLE VIEW AP OR PA) CLINICAL HISTORY: Acute respiratory illness MQ: ?XC1_5 Comparison: ?None RESULT: Lines, tubes, and devices: ?None. Lungs and pleura: ?No consolidation. No lung mass. No pleural effusion. Cardiomediastinal silhouette: ?Normal cardiomediastinal silhouette. Other: ?None 01/24/2020 ?9:59 PM - Radiology, Oru In Impression IMPRESSION: Perfusion-only, modified PIOPED: The overall probability for pulmonary embolism is very low. Criminalist Technician: HOLLY ? Transcribe Date/Time: Jan 24 2020 ?9:05P Dictated by : RENE ANDERSON MD This examination was interpreted and the report reviewed and electronically signed by: RENE ANDERSON MD on Jan 24 2020 ?9:57PM ?EST Results-Findings * * *Final Report* * * DATE OF EXAM: Jan 24 2020 ?9:34PM ? AKN ? 0049 ?- ?NM LUNG PERFUSION ONLY ?/ PROCEDURE REASON: PE suspected, high pretest prob ?? ? * * * * Physician Interpretation * * * * ?Technique: Nuclear medicine perfusion scan of the lungs (Q). ?The patient received a total of 5.6millicurie of technetium 99 M MAA intravenously. ?In addition to the multiple projectional planar images, SPECT-CT images are obtained to increase accuracy. ?The ventilation scan is deferred due to Covid outbreak per the hospital protocol. CT Dose-Length Product: ?73 mGy*cm COMPARISON: The most recent chest radiograph from01/24/2020. INDICATION:Adult ER patient presented with acute respiratory illness and high clinical possibility for pulmonary embolism. ?The patient status post recent right total hip arthroplasty. RESULTS: Nondiagnostic chest CT: No focal consolidation, pneumothorax or pleural effusion with some areas of subpleural compressive atelectasis at the bases. No pericardial effusion. ?The heart size is at the upper limits of normal No obvious fractures within the limitation of the study. ?No thoracic lymphadenopathy. Perfusion scan (planar/SPECT):No wedge shaped perfusion defects. The perfusion on the SPECT images somewhat heterogeneous with subtle fissure sign detected on the left seen on the SPECT images. CBC: Recent Labs 01/24/20 1740 WBC 10.61* RBC 3.63* HB 10.8* HCT 33.4* PLT 254 MCV 92.0 MCH 29.8 MPV 8.7 RDW 15.9* Coags: No results for input(s): PT, INR, APTT in the last 24 hours. BMP: Recent Labs 01/24/20 1740 NA 137 K 4.2 CHLOR 106* CO2 16* BUN 12 CREAT 0.86 GLUC 147* CMP: Recent Labs 01/24/20 1740 NA 137 K 4.2 CHLOR 106* CO2 16* BUN 12 CREAT 0.86 GLUC 147* TPROT 6.2* CA 8.6 TBILI 0.3 ALKPHOS 144* ALT 27 AST 24 ANION 15 Cardiac Enzymes: No results for input(s): CK, MB, CKMB, TROPT in the last 24 hours. Liver Function, Amylase, Lipase: Recent Labs 01/24/20 1740 TPROT 6.2* ALB 3.8* ALT 27 AST 24 ALKPHOS 144* TBILI 0.3 MG/PHOS: No results for input(s): MG, P in the last 24 hours. Renal Panel: Recent Labs 01/24/20 1740 CREAT 0.86 BUN 12 GLUC 147* CA 8.6 CHLOR 106* K 4.2 CO2 16* NA 137 Heme: No results for input(s): RETICP, ABSRETIC, LD, BRIAN, FE, TIBC, TRANSFERSAT in the last 24 hours. Assessment/Plan Principle problem: 1. Sepsis POA: yes Assessment/plan: - likely to be 2/2 UTI - blood and urine culture pending - ID consult - IVF Active Problems: 2. UTI POA: yes Assessment/plan: - IV rocephin - ID consulted, appreciate further recommendations for antibiotic - culture pending 3. HTN POA: yes Assessment/plan: - BP currently 90s systolic - will hold antiypertensives - monitor BP trends, resume as tolerated 4. Asthma POA: yes Assessment/plan: - stable - continue inhalers 5. S/p right total hip replacement POA: yes Assessment/plan: - surgical site without signs of infection - evaluated by ortho - ice prn - WBAT RLE - PT/OT Resolved Problems: * No resolved hospital problems. * VTE Prophylaxis: Lovenox 40mg Sub Q Daily Disposition: Pt would like to return home with daughter upon discharge, would like to continue PT/OT at home. Does not want to return to [place]. Plan of care discussed with: Provider and Patient SIGNATURE: Liv Andrade CNP PATIENT NAME: Velia Bagley DATE: January 24, 2020 TIME: 11:18 PM PAGER/CONTACT #: [phone] Normal [facility] Hemogram/Diffon 01-25-2020 Abs Immature Grans 0.19 thou/cmm High 0.00-0.05 [facility] Comment on above: Performed By: #### C BCD1 #### [place] [address] Abs Neut (ANC) 11.45 thou/cmm High 1.78-5.38 [facility] Comment on above: Performed By: #### C BCD1 #### [facility] [address] [place] [address] Abs. Baso 0.01 thou/cmm Normal 0.01-0.08 [facility] Comment on above: Performed By: #### C BCD1 #### [facility] [address] [place] [address] Abs. [place] 0.72 thou/cmm Normal 0.30-0.82 [facility] Comment on above: Performed By: #### C BCD1 #### [facility] [address] [place] [address] Basophils/100 WBC (Bld) 0.1 % Normal [facility] Comment on above: Performed By: #### C BCD1 #### [facility] [address] [place] [address] Eosinophils (Bld) [#/Vol] 0.00 thou/cmm Low 0.04-0.54 [facility] Comment on above: Performed By: #### C BCD1 #### [facility] [address] [place] [address] Eosinophils/100 WBC (Bld) 0.0 % Normal [facility] Comment on above: Performed By: #### C BCD1 #### [facility] [address] [place] [address] Immature Grans 1.40 % Normal [facility] Comment on above: Performed By: #### C BCD1 #### [facility] [address] [place] [address] Lymphocytes (Bld) [#/Vol] 0.90 thou/cmm Normal 0.84-2.85 [facility] Comment on above: Performed By: #### C BCD1 #### [facility] [address] [place] [address] Lymphocytes/100 WBC (Bld) 6.8 % Normal [facility] Comment on above: Performed By: #### C BCD1 #### [facility] [address] [place] [address] Monocytes/100 WBC (Bld) 5.4 % Normal [facility] Comment on above: Performed By: #### C BCD1 #### [facility] [address] [place] [address] Seg Neutrophil 86.3 % Normal [facility] Comment on above: Performed By: #### C BCD1 #### [facility] [address] [place] [address] Erythrocyte distribution width (RBC) [Ratio] 16.0 % High 11.6-14.4 [facility] Comment on above: Performed By: #### C BCD1 #### [facility] [address] [place] [address] Hematocrit (Bld) [Volume fraction] 28.0 % Low 40.1-51.0 [facility] Comment on above: Performed By: #### C BCD1 #### [facility] [address] [place] [address] Hemoglobin (Bld) [Mass/Vol] 9.0 g/dL Low 13.7-17.5 [facility] Comment on above: Performed By: #### C BCD1 #### [facility] [address] [place] [address] MCH (RBC) [Entitic mass] 29.4 pg Normal 25.7-32.2 [facility] Comment on above: Performed By: #### C BCD1 #### [facility] [address] [place] [address] MCHC (RBC) [Mass/Vol] 32.1 % Low 32.3-36.5 [facility] Comment on above: Performed By: #### C BCD1 #### [facility] [address] [place] [address] MCV (RBC) [Entitic vol] 91.5 fL Normal 83.2-95.6 [facility] Comment on above: Performed By: #### C BCD1 #### [facility] [address] [place] [address] Platelet mean volume (Bld) [Entitic vol] 9.0 fL Normal 8.7-12.0 [facility] Comment on above: Performed By: #### C BCD1 #### [facility] [address] [place], [place] [address] Platelets (Bld) [#/Vol] 231 thou/cmm Normal 141-365 [facility] Comment on above: Performed By: #### C BCD1 #### [facility] [address] [place] [address] RBC (Bld) [#/Vol] 3.06 mil/cmm Low 4.63-6.08 [facility] Comment on above: Performed By: #### C BCD1 #### [facility] [address] [place] [address] RDW SD 52.6 fl High 36.1-45.8 [facility] Comment on above: Performed By: #### C BCD1 #### [facility] [address] [place] [address] WBC (Bld) [#/Vol] 13.27 thou/cmm High 4.23-9.07 [facility] Comment on above: Performed By: #### C BCD1 #### [facility] [address] [place] [address] NUTRITIONon 01-25-2020 NUTRITION HNO ID: [id number] Author: Ed Mcfarland RD Service: Nutrition Therapy Author Type: Registered Dietitian Type: Nutrition Filed: 01/25/2020 11:01 AM Note Text: NUTRITION THERAPY INITIAL ASSESSMENT SERVICE DATE: 01/25/2020 SERVICE TIME: 10:53 AM Nutrition Assessment: Recommended Malnutrition Diagnosis: Moderate Protein-Calorie Malnutrition In the context of: Acute Illness or Injury Based on: Unintentional Weight Loss;Insufficient Energy Intake Nutrition Diagnosis: Problem: Suboptimal oral intake Related to: Acute illness As evidenced by: Nausea;Patient/family self-report;Weight loss Estimated kilocalorie needs: 0393-8177 Calorie Calculation Method: 25-30 kcals/kg Estimated protein needs (grams): 90-120 Grams protein determined by: 1.2-1.6 g/kg Care Plan: Continue current diet Supplements: Ensure Max 1) recent weight loss, not eating much, endorses waves of nausea. Agreeable to trial ensure Max protein. Monitor and Evaluation: Meet greater than 75% of estimated needs;Monitor bowel function;Monitor fluid/electrolyte balance;Monitor labs, I/Os, vital signs, weight HPI: 60 yo male presents from rehab facility with fever, chills, patient endorses waves of dizziness and nausea, poor appetite 2/2 this, some recent weight loss. Active Hospital Problems Diagnosis Date Noted - UTI (urinary tract infection) 01/25/2020 - TIA (transient ischemic attack) - HTN (hypertension) - GERD (gastroesophageal reflux disease) - Sepsis (HCC) 01/24/2020 Intake History: Nutrition Intake Prior to Admission: Less than 75% estimated energy needs greater than 7 days Current Diet: DIET REGULAR Anthropometrics: Height: 177.8 cm (5' 10 ) Weight: 99.1 kg (218 lb 7.6 oz) Dosing Weight: 75 kg (165 lb 5.5 oz) Body mass index is 31.35 kg/m?. Obese Weight change percentage over time: wt has decreased by 5% in ~1 month-clinically significant Physical Exam: Subcutaneous fat loss: No fat loss Muscle loss: No muscle loss Potential micronutrient deficiency: Skin Edema/Ascites: Generalized GI Symptoms: Nausea;Early satiety(pt endorses waves of dizziness and nausea, has been ongiong) Functional Status: Not related to malnutrition status Potential Signs of Inflammation: Leukocytosis;Hyperglycem ia;Hypoalbuminemia;High CRP;Tachycardia;Febrile( fever on admission) SIGNATURE: Ed Mcfarland RD, LD PATIENT NAME: Velia Bagley DATE: January 25, 2020 TIME: 10:53 AM PAGER: [phone] Normal [facility] PLAN OF CAREon 01-25-2020 PLAN OF CARE HNO ID: [id number] Author: Betty Watkins (Pharmacist) Service: Pharmacy Author Type: Pharmacist Type: Plan of Care Filed: 01/25/2020 2:17 PM Note Text: MEDICATION HISTORY AND MEDICATION RECONCILIATION Patient Name:Kathe Bagley : 1960 Source of history:jail/Other MAR - [place] and [facility] records. Patient was just discharged from [facility] 01/21/20. Medication Nonadherence Identified: No barriers noted The above information represents the best possible medication history: Yes Reconciliation completed? Yes All IT SPECIALIST medications addressed by LIP Ewjxk-by-Gahr[facility]kyke Medication List Adjustments: Medication Regimen Changes: NA Medications Added: Acetaminophen 650mg Q4H prn - per facility MAR Milk of Magnesia 30mL every 2 days as needed - per facility MAR Albuterol 2.5mg every 6 hours as needed - per facility MAR Medications Removed: NA Short-Term Medications: NA Further Clarification Required: NA Patient is a 30 day readmission: Yes. Description: 01/15-01/20 (fracture) Patient Interested in Bedside Delivery: No - patient is from facility and ineligible for bedside delivery Time Spent Reviewing Patient's Medications: 25 minutes Allergies: ALLERGIES Allergen Reactions - Avocado Swelling - Baclofen Other: See Comments Dizziness and full body weakness - Candasartan [Other] Rash - Chocolate Unknown - Ciprofloxacin (Bulk) Anaphylaxis - Grass Pollen Unknown - Indocin [Indomethac* Rash - Ivp Dye [Iodine] Anaphylaxis - Penicillins Rash - [place]ima Oil Unknown - Propranolol Other: See Comments Severe low bp and kidneys shutting down. - Sulfa (Sulfonamide * Rash, Itching - Valium [Diazepam] Other: See Comments Depression Preferred Pharmacy: NA patient is from [facility] Current IT SPECIALIST Medications: Prior to Admission medications as of 01/25/20 1412 Medication Sig Last Dose Taking acetaminophen (TYLENOL) 325 mg tablet Take 650 mg by mouth every 4 hours as needed. Yes magnesium hydroxide (MILK OF MAGNESIA) 400 mg/5 mL suspension Take 30mL by mouth every 2 days as needed Yes albuterol (PROVENTIL) 2.5 mg/3 mL nebulizer solution Inhale 2.5 mg as instructed every 6 hours as needed. Yes oxyCODONE IR (ROXICODONE) 5 mg immediate release tablet Take 1-2 tablets by mouth every 6 hours as needed for Pain for up to 7 days. 01/24/2020 at Unknown time Yes enoxaparin (LOVENOX) 40 mg/0.4 mL Inject 0.4 mL subcutaneously once daily for 16 days. at Unknown time Yes verapamil SR (CALAN SR, ISOPTIN SR) 120 mg CR tablet Take 1 tablet by mouth once daily. 01/24/2020 at Unknown time Yes docusate sodium (COLACE) 100 mg capsule Take 1 capsule by mouth twice daily as needed for Constipation. Unknown at Unknown time Yes aspirin 81 mg chewable tablet Take 81 mg by mouth twice daily. 01/24/2020 at Unknown time Yes omeprazole (PRILOSEC) 20 mg capsule Take 20 mg by mouth twice daily. 01/24/2020 at Unknown time Yes topiramate (TOPAMAX) 100 mg tablet Take 100 mg by mouth four times daily. 200 mg in morning, 100 mg at noon, 200 mg in the evening, 100 mg at bedtime - 600 mg total daily Yes AIMOVIG AUTOINJECTOR 140 mg/mL syringe Inject 140 mg subcutaneously once every month. 01/08/2020 Yes venlafaxine ER (EFFEXOR XR) 75 mg 24 hr capsule Take 75 mg by mouth once daily. Yes levocetirizine (XYZAL) 5 mg tablet Take 2.5 mg by mouth daily at bedtime. Yes tiotropium (SPIRIVA) 18 mcg inhalation capsule Inhale 18 mcg as instructed once daily. Yes levalbuterol (XOPENEX) 1.25 mg/3 mL nebulizer solution Use 1 Ampule via nebulizer every 4 hours as needed. Yes calcitonin,salmon,synthe tic (CALCITONIN, SALMON, NASAL) Use 1 Inhalation in the nose once daily. (alternating nostrils every other day) 01/24/2020 at Unknown time Yes tamsulosin ER (FLOMAX) 0.4 mg Take 2 capsules by mouth at bedtime. Yes DULoxetine (CYMBALTA) 60 mg capsule Take 60 mg by mouth once daily. 01/24/2020 at Unknown time Yes primidone (MYSOLINE) 250 mg tablet Take 250 mg by mouth daily at bedtime. Pt only takes 250 mg at bedtime per pt report 01/23/2020 Yes cloNIDine HCl (CATAPRES) 0.1 mg tablet Take 0.1 mg by mouth twice daily before meals (0600/1600). 01/24/2020 at Unknown time Yes nitrofurantoin monohydrate and macrocrystal (MACROBID) 100 mg capsule TAKE 1 CAPSULE BY MOUTH EVERY DAY 01/24/2020 at Unknown time Yes amitriptyline (ELAVIL) 50 mg tablet Take 50 mg by mouth daily at bedtime. 01/24/2020 at Unknown time Yes atorvastatin (LIPITOR) 40 mg tablet Take 40 mg by mouth once daily. 01/24/2020 at Unknown time Yes FASENRA 30 mg/mL injection Inject 30 mg subcutaneously every 8 weeks. Next one due 11/15/19 01/17/2020 Yes budesonide-formoterol (SYMBICORT) 160-4.5 mcg/actuation inhaler Inhale 2 Puffs as instructed twice daily. 01/24/2020 at Unknown time Yes gabapentin (NEURONTIN) 800 mg tablet Take 800 mg by mouth four times daily. Yes losartan (COZAAR) 100 mg tablet Take 100 mg by mouth once daily. Yes rizatriptan (MAXALT) 10 mg tablet Take 10 mg by mouth as needed for Migraine Headache (see administration instructions) (TWICE DAILY NEEDED). at Unknown time Yes fluticasone (FLONASE) 50 mcg/actuation nasal spray Use 2 Sprays in each nostril once daily. Yes montelukast (SINGULAIR) 10 mg tablet Take 10 mg by mouth daily at bedtime. 01/24/2020 at Unknown time Yes potassium chloride ER (K-DUR, KLOR-CON) 20 mEq tablet Take 20 mEq by mouth four times daily. 01/24/2020 at Unknown time Yes spironolactone (ALDACTONE) 25 mg tablet Take 25 mg by mouth once daily. Yes celecoxib (CELEBREX) 200 mg capsule Take 400 mg by mouth twice daily. Unknown at Unknown time Yes ALBUTEROL SULFATE (PROAIR HFA INHALATION) Inhale 2 Puffs as instructed every 4 hours as needed (shortness of breath). 01/24/2020 at Unknown time Yes BETTY WATKINS, PHARMACIST January 25, 2020 2:13 PM [facility] PROGRESSon 01-25-2020 PROGRESS HNO ID: [id number] Author: Fanta Pettit Service: Hospital Medicine Author Type: Physician Type: Progress Notes Filed: 01/26/2020 11:58 AM Note Text: DEPARTMENT OF HOSPITAL MEDICINE PROGRESS NOTE SERVICE DATE: 01/25/2020 SERVICE TIME: 2:32 PM Hospital Medicine/Primary Attending: Fanta Pettit, DO NIGHT AND WEEKEND COVERAGE: After 7pm please page [phone] CHIEF COMPLAINT: Fevers SUBJECTIVE: Pt seen and examined. Patient states he has a severe migraine and needs to keep his eyes closed throughout the interview. He was able to answer in few words but had a hard time elaborating. He did deny chest pain, shortness of breath, nausea, vomiting. Does admit to fevers and chills. Also admits to urinary retention, which he straight caths OBJECTIVE: PHYSICAL EXAM: BP 103/62 Pulse 101 Temp (Src) 99 (Oral) Resp 18 Ht 5' 10 (1.78m) Wt 218 lb 7.6 oz (99.1kg) SpO2 94% BMI 31.35 kg/(m2). O2 Therapy: Room Air, Liters: 1 Physical Exam Constitutional: General: He is not in acute distress. Comments: Patient laying in bed with eyes closed minimal answers. Appears to be in pain HENT: Head: Normocephalic and atraumatic. Cardiovascular: Rate and Rhythm: Normal rate and regular rhythm. Pulses: Normal pulses. Heart sounds: No murmur. No gallop. Pulmonary: Effort: No respiratory distress. Breath sounds: No wheezing or rales. Abdominal: General: There is no distension. Tenderness: There is no abdominal tenderness. There is no guarding. Comments: Large rounded Musculoskeletal: General: No swelling. Skin: General: Skin is warm and dry. Neurological: General: No focal deficit present. Mental Status: He is alert and oriented to person, place, and time. Psychiatric: Mood and Affect: Mood normal. MEDICATIONS: Current Facility-Administered Medications Medication Dose Route Frequency acetaminophen 650 mg tab(s) (TYLENOL) 650 mg ORAL q 6 H PRN NaCl 0.9% iv infusion 100 mL/hr INTRAVENOUS CONTINUOUS sodium chloride 0.65 % 2 [place] (AYR, OCEAN) 2 [place] EACH NOSTRIL PRN gabapentin 800 mg cap(s) (NEURONTIN) 800 mg ORAL QID tamsulosin ER 0.8 mg cap(s) (FLOMAX) 0.8 mg ORAL AT BEDTIME venlafaxine ER 75 mg cap(s) (EFFEXOR XR) 75 mg ORAL DAILY tiotropium bromide 2.5 mcg/actuation 1 Puff (SPIRIVA RESPIMAT) 1 Puff INHALATION DAILY topiramate 200 mg tab(s) (TOPAMAX) 200 mg ORAL 2 times per day topiramate 100 mg tab(s) (TOPAMAX) 100 mg ORAL 2 times per day primidone 250 mg tab(s) (MYSOLINE) 250 mg ORAL AT BEDTIME atorvastatin 40 mg tab(s) (LIPITOR) 40 mg ORAL AT BEDTIME enoxaparin 40 mg injection (LOVENOX) 40 mg SUBCUTANEOUS DAILY docusate sodium 100 mg cap(s) (COLACE) 100 mg ORAL BID PRN montelukast 10 mg tab(s) (SINGULAIR) 10 mg ORAL AT BEDTIME celecoxib 400 mg cap(s) (CeleBREX) 400 mg ORAL BID oxyCODONE IR 5-10 mg tab(s) (ROXICODONE) 5-10 mg ORAL q 6 H PRN aspirin 81 mg chewable tab(s) 81 mg ORAL BID pantoprazole DR 20 mg tab(s) (PROTONIX) 20 mg ORAL BID AC (0600/1600) DULoxetine 60 mg cap(s) (CYMBALTA) 60 mg ORAL DAILY amitriptyline 50 mg tab(s) (ELAVIL) 50 mg ORAL AT BEDTIME sodium chloride 0.9 % (flush) 3-5 mL (BD POSIFLUSH) 3-5 mL INTRAVENOUS q 12 H cefTRIAXone 1 g in D5W 100 mL MB+ (ROCEPHIN) 1 g INTRAVENOUS q 24 H albuterol 2.5 mg /3 mL (0.083 %) 2.5 mg (PROVENTIL) 2.5 mg INHALATION q 4 H PRN fluticasone-vilanterol 100-25 mcg/dose 1 Inhalation (BREO ELLIPTA) 1 Inhalation INHALATION DAILY cetirizine 10 mg tab(s) (ZyrTEC) 10 mg ORAL AT BEDTIME DATA: Diagnostic tests reviewed for today's visit: CBC: Recent Labs 01/25/20302 WBC 13.27* RBC 3.06* HB 9.0* HCT 28.0* PLT 231 MCV 91.5 MCH 29.4 MPV 9.0 RDW 16.0* Coags: No results for input(s): PT, INR, APTT in the last 24 hours. BMP: Recent Labs 01/25/20 030 NA 136 K 3.8 CHLOR 108* CO2 17* BUN 11 CREAT 0.86 GLUC 109* CMP: Recent Labs 01/25/2030201/24/20 1740 NA 136 137 K 3.8 4.2 CHLOR 108* 106* CO2 17* 16* BUN 11 12 CREAT 0.86 0.86 GLUC 109* 147* TPROT -- 6.2* CA 7.6* 8.6 TBILI -- 0.3 ALKPHOS -- 144* ALT -- 27 AST -- 24 ANION 11 15 Cardiac Enzymes: No results for input(s): CK, MB, CKMB, TROPT in the last 24 hours. Liver Function, Amylase, Lipase: Recent Labs 01/24/20 1740 TPROT 6.2* ALB 3.8* ALT 27 AST 24 ALKPHOS 144* TBILI 0.3 MG/PHOS: No results for input(s): MG, P in the last 24 hours. Renal Panel: Recent Labs 01/25/20 0303 CREAT 0.86 BUN 11 GLUC 109* CA 7.6* CHLOR 108* K 3.8 CO2 17* NA 136 Heme: No results for input(s): RETICP, ABSRETIC, LD, BRIAN, FE, TIBC, TRANSFERSAT in the last 24 hours. No results found for: UALBCR Assessment/Plan 60-year-old male with a past medical history that includes recent right total hip replacement (01/16/2020), COPD, BPH and urinary retention, TIA, DVT who presented to [facility] with fevers. Found to need criteria for sepsis #Sepsis possibly 2/2 UTI -Continue ceftriaxone -Follow-up cultures #Recent hip replacement 01/16/2020 - Ortho consults for recs: - Ice to right hip as needed - Dressing/splint status: Aquacel dressing R hip - Weightbearing status: WBAT RLE - Pain control - No acute orthopaedic interventions #COPD Not in acute exacerbation -Continue Breo Ellipta -Continue Spiriva -Aerosols as needed - home Singulair #TIA Continue home aspirin and atorvastatin #Migraines -Continue home Celebrex and topiramate #Neuropathic pain -Continue home gabapentin, duloxetine, amitriptyline #GERD -Continue pantoprazole #Moderate Protein Calorie Malnutrition Appreciate nutrition input Supplements as ordered Medication and Non-Pharmacologic VTE Prophylaxis/Anticoagulan ts Anticoagulant AND Antiplatelet Medications (From admission, onward) Start Dose Route Frequency Ordered Stop 01/25/20 0900 enoxaparin 40 mg injection (LOVENOX) 40 mg SUBCUTANEOUS DAILY 01/25/2022302/05/20 0859 01/25/20 023 aspirin 81 mg chewable tab(s) 81 mg ORAL 2 TIMES DAILY 01/25/20223 -- 01/25/20229 vte non-pharmacologic prophylaxis - none indicated (nv,ks) 01/25/20229 vte current anticoag therapy (nv,ks) 01/25/20229 activity - mobilize patient (nv,ks) Lines, Drains, and Airways Line Peripheral 01/24/20 Admission to Hospital Left Forearm 20 Gauge 1 day Peripheral 01/24/20 1730 Right Antecubital 20 Gauge less than 1 day Reviewed lines and needs to be continued: REASONS: Intravenous antibiotics VTE Prophylaxis: Lovenox 40mg Sub Q Daily Disposition: To be determined Functional Status Prior to Admit: Medical Necessity for Continued Hospitalization y Plan of care discussed with: Provider, RN, Patient SIGNATURE: Fanta Pettit DO PATIENT NAME: Velia Bagley DATE: January 25, 2020 TIME: 2:32 PM PAGER/CONTACT #: Team color pager Disclaimer: Portions of this note may have been generated using [employer] voice recognition software. Reasonable efforts were made to correct any dictation errors that resulted due to the programming of this software but some may still be present. Normal [facility] THERAPY NTon 01-25-2020 THERAPY NT HNO ID: [id number] Author: Yazan (Pt) Miguelina Service: Physical Therapy Author Type: Physical Therapist Type: Therapy (PT/OT/Speech/Resp) Filed: 01/25/2020 3:55 PM Note Text: Physical Therapy Treatment SERVICE DATE: 01/25/2020 SERVICE TIME: 1513 to 1530 ROOM: [place] [address] Recommended Discharge Disposition: Home PT Recommended Discharge Disposition Comments: Patient ambulating with contact guard assist with walker during afternoon session, patient to benefit from Home PT for further strengthening and improvement with range of motion for progressed independence with functional mobility Justification For Post Acute Needs: Anticipate patient will tolerate 3 hours of daily therapy at the time of admission to post-acute setting;Cognition intact;Living the community premorbidly;Motivated;Wi lling to participate Anticipated Discharge Needs: Physical Assist at Home Physical Assist at Home for: Cleaning;Laundry;Shoppin g;Transportation PT Recommendations to Nursing: Ambulate with device;To bathroom;In halls;OOB for Meals;With assist of 1 person Device: Wheeled Walker PT 6 Clicks Score: 18 Precautions/Activity Restrictions: Weight Bearing Restrictions;Bed/Chair Alarm;Fall Risk Extremity With Weight Bearing Restricted: Right Lower Extremity Right Lower Extremity Weight Bearing Status: WBAT ASSESSMENT : Patient with significant improvements during afternoon session. Patient declined headache and right hip pain and able to ambulate ~150' with wheeled walker. Recommend Home PT with assist from son as needed. Patient Disposition at Start of Session: Supine in Bed;Call [place] in Reach;Bed Alarm Patient Disposition at End of Session: Supine in Bed;Call [place] in Reach;Bed Alarm Tolerated Full Session Physiologic Response(dizziness ) Physical Therapy Problem List: Pain;Decreased Range Of Motion;Decreased Strength;Functional Mobility Impairment;Balance Impaired Patient /Caregiver Goals: Go Home Goals for Plan of Care: Able to perform HEP with: Contact Guard Assistance(R RONALD protocol) Transfer supine to/from sit with: Independent Transfer sit to/from stand with: Independent Ambulate with: Independent Distance: 100' intervals Device: Wheeled Walker Progress Toward Goals: Progressing as expected Rehab Potential: Good PLAN: Treatment Frequency (times per week): 7(4-7) Current admission Treatment Interventions: Energy Conservation Training;Joint Mobility;Strengthening;F unctional Mobility Training;Balance Training Plan of Care developed with: Patient TREATMENT INTERVENTIONS: Therapy Diagnosis: Reduced mobility-other;Muscle Weakness (generalized);Unsteadine ss on feet Interventions Provided: Therapeutic Activity (36722);Gait Training (98787) Therapeutic Activity (57538) Treatment Minutes: 5 0 units Skilled Intervention(s): Instructed patient in log roll technique. Verbal cues for patient to reach across body to use bed rail with tactile assist to guide arm and minimal assist at trunk to complete rolling towards left side. Instructed patient in supine to and from sit pushing with upper extremities to sit up. Instructed patient to slide legs froward off edge of bed and use upper extremities to push into sitting. Minimal assist at trunk to complete with cuing for patient to focus on pursed lip breathing once sitting edge of bed to gather self. Cuing for patient to lower onto left elbow using right upper extremity to assist at right thigh to bring leg up to bed, patient with increased difficulty completing and minimal assist from therapist at lower extremities to resume supine position. Gait Training (57268) Treatment Minutes: 12 1 unit Skilled Intervention(s): Instruction in sit to stand technique with proper hand placement and body positioning at edge of bed/chair. Cues for patient to scoot bottom closer to edge of bed and use upper extremities on bed to push into standing. Contact guard assist to complete transition with cuing for patient to tuck bottom and stand tall for improved posture. Cuing for patient to step with right foot first with visual gaze looking forward for improved negotiation of obstacles in room and hallway. Instructed patient to keep walker frame close to body, however to avoid front of hips from touching frame of walker to avoid fall risk from walker tipping. Patient ambulating intermittently with reciprocal gait pattern, using step to pattern when completing turns. Instructed patient to slow pace to focus on reciprocal stepping pattern and cuing to take smaller steps while completing turns to avoid using step to pattern. Instruction in stand to sit technique with LE's touching chair/bed and reaching back for surface. Instructed patient to reach back for edge of bed once back of legs are touching and kick right foot forward slightly on ground to avoid greater than 90 degree hip flexion upon descent to edge of bed, contact assist to complete. Total Timed Code Treatment Minutes: 17 Total Treatment Time (minutes): 17 SUBJECTIVE: Current Hospital Course: Chart reviewed and no significant medical updates relevant to therapy were noted Reason for Physical Therapy Consult : treat Relevant Past Medical History: recent R RONALD, HTN, DVT, UTI, TIA, OA Patient Report: I feel a lot better now. Patient agreeable to therapy session, denied pain and dizziness throughout. Home Environment Patient Lives With: Family(son ) Assistance Available: methods time analyst Entry To Home: No Stairs Number Of Stairs To Bed/Bath: 0 Tub/Shower Type: tub shower with shower chair Equipment Owned: Wheeled Walker;Shower Chair Prior Functional Level: Within Functional Limits Prior Functional Level Comments: Patient independent prior to recent admission for R RONALD, patient reports son will be home during day to assist, reports ambulating with walker at skilled facility OBJECTIVE: CURRENT FUNCTIONAL STATUS: Current Functional Mobility Assist Level Additional Information Rolling Minimal Assistance Supine to Sit Minimal Assistance Sit to Supine Minimal Assistance Scooting Contact Guard Assistance Sit to Stand Contact Guard Assistance Stand to Sit Contact Guard Assistance Bed to Chair Toilet/Commode Gait Contact Guard Assistance Gait Device: Wheeled Walker Gait Distance (feet): 150' Stairs Curb Step Car Transfer General Deviations/Observations: Tati decreased;Difficulty changing direction/turning;Step length decreased Balance: Static Sitting;Dynamic Sitting;Static Standing;Dynamic Standing Static Sitting Balance: Good Patient able to maintain balance without handhold support, limited postural sway Dynamic Sitting Balance: Good Patient accepts moderate challenge, able to maintain balance while picking up object off floor Static Standing Balance: Fair Patient able to maintain balance with handhold support, may require occasional minimal assistance Dynamic Standing Balance: Fair Patient accepts minimal challenge, able to maintain balance while turning head/trunk Activity Tolerance: Standing Activity Standing Activity: ambulation Standing Activity Tolerance (in minutes): 6 JH-HLM: 7: Walk 25 feet or more Please see discipline specific clinical documentation flowsheet for complete details for this therapy evaluation/treatment. SIGNATURE: Yazan Mcintyre PT PATIENT NAME: Velia Bagley DATE: January 25, 2020 TIME: 3:42 PM Normal [facility] THERAPY NT HNO ID: [id number] Author: Taylor Pennington OT Service: Occupational Therapy Author Type: Occupational Therapist Type: Therapy (PT/OT/Speech/Resp) Filed: 01/25/2020 11:15 AM Note Text: OCCUPATIONAL THERAPY MISSED VISIT SERVICE DATE: 01/25/2020 SERVICE TIME: 1035 to 1037 ROOM: [place] [address] Attempted Evaluation. Patient not seen due to Declined. Patient decline therapy due dizziness and fatigue. Will re-attempt OT evaluation as able. SIGNATURE: Taylor Pennington OT/Matt PATIENT NAME: Velia Bagley DATE: January 25, 2020 TIME: 11:14 AM [facility] THERAPY NT HNO ID: [id number] Author: Yazan Mcintyre Service: Physical Therapy Author Type: Physical Therapist Type: Therapy (PT/OT/Speech/Resp) Filed: 01/25/2020 8:36 AM Note Text: Physical Therapy Evaluation SERVICE DATE: 01/25/2020 SERVICE TIME: 0758 to 0822 ROOM: [id number] Recommended Discharge Disposition: Acute Rehab(vs. Home PT pending progress with ambulation) Recommended Discharge Disposition Comments: Patient dizzy upon sitting edge of bed this session and unable to ambulate, recommend Acute Rehab secondary to patient being below baseline, however if able to abmulate with walker household distances may be able to go home with increased assist pending patient symptoms and progress with mobility Justification For Post Acute Needs: Anticipate patient will tolerate 3 hours of daily therapy at the time of admission to post-acute setting;Cognition intact;Living the community premorbidly;Motivated;Wi lling to participate PT Recommendations to Nursing: Utilize bed in chair position;Sit at edge of bed;Not appropriate for OOB activity at this time PT 6 Clicks Score: 9 Precautions/Activity Restrictions: Weight Bearing Restrictions;Bed/Chair Alarm;Fall Risk Extremity With Weight Bearing Restricted: Right Lower Extremity Right Lower Extremity Weight Bearing Status: WBAT ASSESSMENT : This patient was admitted for chills, fever and increased tremors, has the past medical history of R RONALD 01/16/20, HTN, DVT, TIA, UTI, OA impacting current functional level, as well as the social factors complicating the discharge of son with rehab department manager assist. This patient is below baseline functioning of independence prior to recent R RONALD and will benefit from continued skilled therapy in the hospital for treatment of the following body systems/impairments: musculoskeletal, integumentary, cardiopulmonary, neuromuscular (gait, transfers, bed mobility, balance, endurance, safety and strengthening). Patient Disposition at Start of Session: Supine in Bed;Call [place] in Reach;Bed Alarm Patient Disposition at End of Session: Supine in Bed;Call [place] in Reach;Bed Alarm Tolerance Limited By Physiologic Response(dizziness ) Physical Therapy Problem List: Pain;Decreased Range Of Motion;Decreased Strength;Functional Mobility Impairment;Balance Impaired Patient /Caregiver Goals: Go Home Goals for Plan of Care: Able to perform HEP with: Contact Guard Assistance(R RONALD protocol) Transfer supine to/from sit with: Contact Guard Assistance Transfer sit to/from stand with: Contact Guard Assistance Ambulate with: Stand By Assistance Distance: 50' intervals Device: Wheeled Walker Rehab Potential: Good PLAN: Treatment Frequency (times per week): 7(4-7) Current admission Treatment Interventions: Energy Conservation Training;Joint Mobility;Strengthening;F unctional Mobility Training;Balance Training Plan of Care developed with: Patient TREATMENT INTERVENTIONS: Therapy Diagnosis: Reduced mobility-other;Muscle Weakness (generalized);Unsteadine ss on feet Interventions Provided: Evaluation;Therapeutic Exercise (11393) $ Evaluation-Moderate (86150) Billed Units: 1 unit History and examination of body systems see assessment section above. This patient?s clinical presentation is evolving. The patient required a moderate complexity evaluation. Therapeutic Exercise (88382) Treatment Minutes: 9 1 unit Skilled Intervention(s): Instruction in therapeutic exercise for slow and controlled speed through full range of motion for optimal strengthening. Patient completed R total hip arthroplasty protocol (ankle pump, quad set, gluteal set, heel slide, hip abd/add to neutral, short arc quad, hip adductor squeeze) x 12 reps with minimal amount of assist. Educated patient on posterior hip precautions. Patient recalls 3/3 hip precautions Patient reports 0/10 pain. Total Timed Code Treatment Minutes: 9 Total Treatment Time (minutes): 24 SUBJECTIVE: Current Hospital Course: Chart reviewed; 60 year old male recently discharged after R RONALD on 01/16/20. Patient admitted from SNF for chills, fever with increased tremors, possible UTI. Patient WBAT RLE. Reason for Physical Therapy Consult : eval and treat Relevant Past Medical History: recent R RONALD, HTN, DVT, UTI, TIA, OA Patient Report: I am really dizzy, I have to lay back down. Patient agreeable to therapy session, reported dizziness with sitting and requested to lie back down. Unable to ambulate this session. Home Environment Patient Lives With: Family(son ) Assistance Available: methods time analyst Entry To Home: No Stairs Number Of Stairs To Bed/Bath: 0 Tub/Shower Type: tub shower with shower chair Equipment Owned: Wheeled Walker;Shower Chair Prior Functional Level: Within Functional Limits Prior Functional Level Comments: Patient independent prior to recent admission for R RONALD, patient reports son will be home during day to assist, reports ambulating with walker at skilled facility OBJECTIVE: Range of Motion: ROM Limitation Comments ROM Limitation Comments: decreased right hip flexion Strength: Lower Extremity Comments Right Lower Extremity Strength Comments: grossly 3+/5 Left Lower Extremity Strength Comments: grossly 4-/5 CURRENT FUNCTIONAL STATUS: Current Functional Mobility Assist Level Additional Information Rolling Supine to Sit Moderate Assistance Sit to Supine Moderate Assistance Scooting Minimal Assistance Sit to Stand (unable to stand due to dizziness ) Stand to Sit Bed to Chair Toilet/Commode Gait Stairs Curb Step Car Transfer Balance: Static Sitting Static Sitting Balance: Poor(due to dizziness ) Patient requires handhold support and moderate to maximal assistance to maintain position(due to dizziness ) -HLM: 3: Sit at edge of bed Please see discipline specific clinical documentation flowsheet for complete details for this therapy evaluation/treatment. SIGNATURE: Yazan Mcintyre PT PATIENT NAME: Velia Bagley DATE: January 25, 2020 TIME: 8:31 AM [facility] Troponin T, High Sens.on Troponin T, High Sens. 35 ng/L High 0-11 [facility] Comment on above: Result Comment: Mima ents taking a biotin dose of up to 5 mg/day should refrain from taking biotin for 4 hours prior to sample collection. Patients taking a biotin dose of 5 to 10 mg/day should refrain from taking biotin for 8 hours prior to sample collection. Patients taking a biotin dose > 10 mg/day should consult with their physician or the laboratory prior to having a sample taken. Clinicians should consider biotin interference as a source of error, when clinically suspicious of the laboratory result. Performed By: #### C BC1 #### [place] [address] CONSULTon 01-24-2020 CONSULT HNO ID: [id number] Author: Hiral Castaneda Service: Orthopaedic Surgery Author Type: Physician Type: Consults Filed: 01/25/2020 11:30 AM Note Text: I evaluated the patient and personally participated in the antonio components. I agree with the resident's findings and plan with the following revisions and/or additions: 9 days postop. Doing well with hip. Will obtain followup xray prior to discharge. Continue PT WBAT. Signature: Hiral Castaneda MD Service Date: 01/25/2020 Service Time: 11:29 AM ORTHOPAEDIC SURGERY CONSULT Pt: VELIA Valdivia YUDI Date of Consultation: 01/24/2020 Physician Consulted: Dr. Castaneda Reason for Consultation: Febrile and tachycardic with recent RONALD 01/16/2020 HPI: 60 year old male presented to [facility] from a SNF with tachycardia, fever and shaking chills. Orthopaedic surgery was consulted as a courtesy due to recent R RONALD on 01/16/2020 given patients current symptoms. Patient was discharge s/p surgery 3 days ago to a SNF. Patient states he began having uncontrollable shaking with a fever while at his SNF earlier today. Per EMS the patient had a fever of 105 at SNF, but was afebrile at [facility] ED. Patient states that in regards to his right hip he is having no pain and states his hip feels great. He denies any drainage from incision site or any recent trauma to the RLE. States he has been ambulating at his SNF during rehab. Does endorse unhappiness with his current SNF and states that he has a history of essential tremors and has not been receiving his typical regimen of primidone or cymbalta. States that he no longer has visible tremors as they were previously controlled by medicaiton, but does state some of the shaking he is now experiencing is similar to that of his tremors when they were uncontrolled. Endorses some SOB with leg swelling bilaterally, but states this is normal for him given history of COPD and asthma. Current WBC on admit was 10.6. Denies additional orthopaedic complaints. 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 - TIA (transient ischemic attack) 2016 2017 - UTI (urinary tract infection) PAST SURGICAL HISTORY Procedure Laterality Date - CONVERT HIP REVSN TO TOTAL HIP Right 01/16/2020 - LAMINECTOMY,LUMBAR 03/2016 L4-L5 - PAST SURGICAL HISTORY OF Bilateral x 16 surgeries surgery to repair bone in knee cap and multiple arthroscopies and debridements - PAST SURGICAL HISTORY OF 2018 bronchoscopy 5 total - PERCUT FIX PROX/NECK FEMUR Right 10/17/2019 - REMOVAL DEEP IMPLANT Right 01/16/2020 Hip Allergies: Acetaminophen, Avocado, Baclofen, Candasartan [Other], Chocolate, Ciprofloxacin (Bulk), Grass Pollen, Indocin [Indomethacin Sodium], Ivp Dye [Iodine], Penicillins, Lima Oil, Propranolol, Sulfa (Sulfonamide Antibiotics), and Valium [Diazepam] Current Facility-Administered Medications Medication Dose Route Frequency - vancomycin 2 g in D5W 500 mL (VANCOCIN) 2 g INTRAVENOUS ONCE - NaCl 0.9% 1,000 mL iv bolus 1,000 mL INTRAVENOUS ONCE Current Outpatient Medications Medication Sig - oxyCODONE IR (ROXICODONE) 5 mg immediate release tablet Take 1-2 tablets by mouth every 6 hours as needed for Pain for up to 7 days. - enoxaparin (LOVENOX) 40 mg/0.4 mL Inject 0.4 mL subcutaneously once daily for 16 days. - verapamil SR (CALAN SR, ISOPTIN SR) 120 mg CR tablet Take 1 tablet by mouth once daily. - docusate sodium (COLACE) 100 mg capsule Take 1 capsule by mouth twice daily as needed for Constipation. - aspirin 81 mg chewable tablet Take 81 mg by mouth twice daily. - omeprazole (PRILOSEC) 20 mg capsule Take 20 mg by mouth twice daily. - topiramate (TOPAMAX) 100 mg tablet Take 100 mg by mouth four times daily. 200 mg in morning, 100 mg at noon, 200 mg in the evening, 100 mg at bedtime - 600 mg total daily - AIMOVIG AUTOINJECTOR 140 mg/mL syringe Inject 140 mg subcutaneously once every month. - venlafaxine ER (EFFEXOR XR) 75 mg 24 hr capsule Take 75 mg by mouth once daily. - levocetirizine (XYZAL) 5 mg tablet Take 2.5 mg by mouth daily at bedtime. - tiotropium (SPIRIVA) 18 mcg inhalation capsule Inhale 18 mcg as instructed once daily. - levalbuterol (XOPENEX) 1.25 mg/3 mL nebulizer solution Use 1 Ampule via nebulizer every 4 hours as needed. - calcitonin,salmon,synthe tic (CALCITONIN, SALMON, NASAL) Use 1 Inhalation in the nose once daily. (alternating nostrils every other day) - tamsulosin ER (FLOMAX) 0.4 mg Take 2 capsules by mouth at bedtime. - DULoxetine (CYMBALTA) 60 mg capsule Take 60 mg by mouth once daily. - primidone (MYSOLINE) 250 mg tablet Take 250 mg by mouth daily at bedtime. Pt only takes 250 mg at bedtime per pt report - cloNIDine HCl (CATAPRES) 0.1 mg tablet Take 0.1 mg by mouth twice daily before meals (0600/1600). - nitrofurantoin monohydrate and macrocrystal (MACROBID) 100 mg capsule TAKE 1 CAPSULE BY MOUTH EVERY DAY - amitriptyline (ELAVIL) 50 mg tablet Take 50 mg by mouth daily at bedtime. - atorvastatin (LIPITOR) 40 mg tablet Take 40 mg by mouth once daily. - FASENRA 30 mg/mL injection Inject 30 mg subcutaneously every 8 weeks. Next one due 11/15/19 - budesonide-formoterol (SYMBICORT) 160-4.5 mcg/actuation inhaler Inhale 2 Puffs as instructed twice daily. - gabapentin (NEURONTIN) 800 mg tablet Take 800 mg by mouth four times daily. - losartan (COZAAR) 100 mg tablet Take 100 mg by mouth once daily. - rizatriptan (MAXALT) 10 mg tablet Take 10 mg by mouth as needed for Migraine Headache (see administration instructions) (TWICE DAILY NEEDED). - fluticasone (FLONASE) 50 mcg/actuation nasal spray Use 2 Sprays in each nostril once daily. - montelukast (SINGULAIR) 10 mg tablet Take 10 mg by mouth daily at bedtime. - potassium chloride ER (K-DUR, KLOR-CON) 20 mEq tablet Take 20 mEq by mouth four times daily. - spironolactone (ALDACTONE) 25 mg tablet Take 25 mg by mouth once daily. - celecoxib (CELEBREX) 200 mg capsule Take 400 mg by mouth twice daily. - ALBUTEROL SULFATE (PROAIR HFA INHALATION) Inhale 2 Puffs as instructed every 4 hours as needed (shortness of breath). FAMILY HISTORY Problem Relation Age of Onset - Emphysema Mother - Blood Clots Mother required IVC filter. Multiple blood clots before (3-4). - Hypertension Mother - Heart Failure Father 72 of CHF. 2 OR before that - Parkinson?s Disease Father 68 - Prostate Cancer Brother - Parkinson?s Disease Paternal Grandfather - Diabetes No Family History Negative for family history of bleeding and clotting disorders. Social History Tobacco Use - Smoking status: Never Smoker - Smokeless tobacco: Never Used - Tobacco comment: second hand smoke from father. Substance Use Topics - Alcohol use: No - Drug use: No ROS: 10 pt ROS neg except in HPI O: Vitals: BP (!) 106/48 Pulse (!) 121 Temp 37.5 ?C (99.5 ?F) (Oral) Resp (!) 25 Ht 177.8 cm (5' 10 ) Wt 99.8 kg (220 lb) SpO2 95% BMI 31.57 kg/m? Physical exam: General: AANDO x 3; NAD. Cooperative throughout entire interview Right Lower Extremity: Incision site over posterolateral hip well approximated with no surrounding eyrthema or drainage from wound. No TTP about incision site. No pain with axial loading or log roll. Negative short arc ROM tenderness at hip. Compartments of the thigh and leg soft and compressible. Tolerates passive stretch of digits. SILT [place]/Sa/SP/DP/T. Motor intact EHL/FHL/G/S. 2+ DP/PT pulses. BCR. Labs: BMP: Sodium 137 01/24/2020 Potassium 4.2 01/24/2020 Chloride 106 01/24/2020 CO2 16 01/24/2020 BUN 12 01/24/2020 Creatinine, Whole Blood (iSTAT) 0.86 01/24/2020 Glucose 147 01/24/2020 CBC: WBC 10.61 01/24/2020 Hemoglobin 10.8 01/24/2020 Hematocrit 33.4 01/24/2020 Platelet Count 254 01/24/2020 COAGS: APTT 23.2 10/16/2019 PT INR 0.98 10/16/2019 SED RATE/CRP: WSR 2 2018 WSR 2 06/10/2016 WSR 8 02/04/2007 CRP 1.5 01/24/2020 CRP 0.3 2018 CRP 0.3 02/04/2007 Imaging: none A/P: 60 year old male s/p R RONALD 01/16/2020 now presenting with tachycardia, shaking chills and questionable fever. - Management per primary - Ice to right hip as needed - Dressing/splint status: Aquacel dressing R hip - Weightbearing status: WBAT RLE - Pain control - No acute orthopaedic interventions - Plan discussed with Dr. Leonel Brady MD Orthopaedic Surgery, PGY-2 01/24/2020 8:09 PM Normal [facility] CRPon 01-24-2020 CRP [Mass/Vol] 1.5 mg/dL High 0.0-0.8 [facility] Comment on above: Performed By: #### C BC1 #### [place] [address] Comprehensive Metabolic Pane nanette 01-24-2020 Albumin [Mass/Vol] 3.8 g/dL Low 3.9-4.9 [facility] Comment on above: Performed By: #### C BC1 #### [place] [address] ALP [Catalytic activity/Vol] 144 U/L High 38-113 [facility] Comment on above: Performed By: #### C BC1 #### [place] [address] ALT [Catalytic activity/Vol] 27 U/L Normal 10-54 [facility] Comment on above: Performed By: #### C BC1 #### [facility] [address] [place] [address] Anion gap [Moles/Vol] 15 mmol/L Normal 9-18 [facility] Comment on above: Performed By: #### C BC1 #### [facility] [address] [place] [address] AST [Catalytic activity/Vol] 24 U/L Normal 14-40 [facility] Comment on above: Performed By: #### C BC1 #### [facility] [address] [place] [address] Bilirubin [Mass/Vol] 0.3 mg/dL Normal 0.2-1.3 [facility] Comment on above: Performed By: #### C BC1 #### [facility] [address] [place] [address] Calcium [Mass/Vol] 8.6 mg/dL Normal 8.5-10.2 [facility] Comment on above: Performed By: #### C BC1 #### [facility] [address] [place] [address] Chloride [Moles/Vol] 106 mmol/L High 97-105 [facility] Comment on above: Performed By: #### C BC1 #### [facility] [address] [place] [address] CO2 Blood 16 mmol/L Low 22-30 [facility] Comment on above: Performed By: #### C BC1 #### [facility] [address] [place] [address] Creatinine [Mass/Vol] 0.86 mg/dL Normal 0.73-1.22 [facility] Comment on above: Performed By: #### C BC1 #### [facility] [address] [place], [place] [address] Glucose [Mass/Vol] 147 mg/dL High 74-99 [facility] Comment on above: Result Comment: The [place] [employer] (ADA) provides guidance for cutoff values for fasting glucose and random glucose. The ADA defines fasting as no caloric intake for at least 8 hours.Fasting plasma glucose results between 100 to 125 mg/dL indicate increased risk for diabetes (prediabetes). Fasting plasma glucose results greater than or equal to 126 mg/dL meet the criteria for diagnosis of diabetes. In the absence of unequivocal hyperglycemia, results should be confirmed by repeat testing. In a patient with classic symptoms of hyperglycemia or hyperglycemic crisis, random plasma glucose results greater than or equal to 200 mg/dL meet the criteria for diagnosis of diabetes. Reference: Standards of Medical Care in Diabetes 2016; [place] [employer]. Diabetes Care. 2016;39(Suppl 1). Performed By: #### C BC1 #### [facility] [address] [place] [address] Potassium [Moles/Vol] 4.2 mmol/L Normal 3.7-5.1 [facility] Comment on above: Performed By: #### C BC1 #### [place] [address] Protein [Mass/Vol] 6.2 g/dL Low 6.3-8.0 [facility] Comment on above: Performed By: #### C BC1 #### [place] [address] Sodium [Moles/Vol] 137 mmol/L Normal 136-144 [facility] Comment on above: Performed By: #### C BC1 #### [place] [address] Urea nitrogen [Mass/Vol] 12 mg/dL Normal 9-24 [facility] Comment on above: Performed By: #### C BC1 #### [place] [id number] Cult Bloodon 01-24-2020 Cult Blood Test performed at [facility] No growth The blood cultures are under-filled. Adding volumes lower or higher than the bottom cementer?s recommended volume* may adversely affect recovery and/or detection of organisms. (*refer to individual bottle labels for correct volumes). Normal [facility] Comment on above: Performed By: #### B MP #### [place] [address] Cult Blood Test performed at [facility] No growth The blood cultures are under-filled. Adding volumes lower or higher than the bottom cementer?s recommended volume* may adversely affect recovery and/or detection of organisms. (*refer to individual bottle labels for correct volumes). Normal [facility] Comment on above: Performed By: #### B MP #### [facility] [address] [place], [place] [address] Cult Urineon 01-24-2020 Cult Urine Test performed at [facility] ORGANISM: *Klebsiella pneumoniae (ID: 1) >100,000 CFU/ml CLSI breakpoints for therapy of uncomplicated UTI due to E. coli, K. pneumoniae or P. mirabilis were applied and may be used to predict the activity of oral agents (cefdinir, cefpodoxime, cefuroxime, and cephalexin). Normal [facility] Comment on above: Performed By: #### B MP #### [place] [address] ED NOTEon 01-24-2020 ED NOTE HNO ID: [id number] Author: Rosa (Rn) BULL Sanchez Service: ? Author Type: Registered Nurse Type: ED Notes Filed: 01/24/2020 5:22 PM Note Text: Bed: 06-ED Expected date: Expected time: Means of arrival: Comments: gin Normal [facility] ED PROV NOTEon 01-24-2020 ED PROV NOTE HNO ID: [id number] Author: Adams Royal MD Service: Emergency Medicine Author Type: Resident Type: ED Provider Notes Filed: 01/25/2020 10:34 AM Note Text: -------- Attestation signed by Abby Pisano MD at 01/27/2020 1:22 PM Attending Note I evaluated the patient and personally participated in the antonio components. I agree with the resident's findings and plan as documented and have discussed the case and management of the patient's care with the resident. Signature: Abby Pisano MD Date: 01/27/2020 Time: 1:22 PM -------- ED Provider Note Patient Name: Velia Bagley SERVICE DATE: 01/24/20 History Patient presents with: Fever: Pt from [facility]. There for rehab from femur fracture. Hx tremors and hyperthermia, today tremors worse than normal and temperature 105F per EMS. Upon ED arrival pt temp 99.5F. Pt also tachycardic in 140s, and having difficulty finding the right words 60-year-old man with history of essential tremor, left tibial vein DVT on low-dose aspirin, asthma, COPD and fracture of right femoral neck status post total hip replacement on 01/16/2020 presenting from rehab facility with concerns for fever and worsened tremors. EMS reports that he had a temperature of 105 ?F at rehab facility. Unknown whether any medications were given. Patient has been participating in rehab without difficulty. He denies any pain in his hip. No redness, swelling, pain, drainage from the incision. He reports some worsening shortness of breath from his baseline with asthma and COPD. He denies any cough. Denies any nausea, vomiting or abdominal pain. He is not taking any blood thinning medications besides low-dose aspirin. Patient self caths daily due to urinary retention as result of BPH. 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 Multiple blood clots before (3-4). - Hypertension Mother - Heart Failure Father 72 of CHF. 2 OR before that - Parkinson?s Disease Father 68 - Prostate Cancer Brother - Parkinson?s Disease Paternal Grandfather - Diabetes No Family History Social History Tobacco Use - Smoking status: Never Smoker - Smokeless tobacco: Never Used - Tobacco comment: second hand smoke from father. Substance and Sexual Activity - Alcohol use: No - Drug use: No - Sexual activity: Not Currently ALLERGIES Allergen Reactions - Acetaminophen Swelling - Avocado Swelling - Baclofen Other: See Comments Dizziness and full body weakness - Candasartan [Other] Rash - Chocolate Unknown - Ciprofloxacin (Bulk) Anaphylaxis - Grass Pollen Unknown - Indocin [Indomethac* Rash - Ivp Dye [Iodine] Anaphylaxis - Penicillins Rash - Lima Oil Unknown - Propranolol Other: See Comments Severe low bp and kidneys shutting down. - Sulfa (Sulfonamide * Rash, Itching - Valium [Diazepam] Other: See Comments Depression Review of Systems Constitutional: Negative for chills, fatigue and fever. HENT: Negative for congestion and sore throat. Eyes: Negative for pain and redness. Respiratory: Negative for cough, shortness of breath and wheezing. Cardiovascular: Negative for chest pain and leg swelling. Gastrointestinal: Negative for abdominal pain, constipation, diarrhea, nausea and vomiting. Endocrine: Negative for cold intolerance and heat intolerance. Genitourinary: Negative for difficulty urinating, dysuria and flank pain. Musculoskeletal: Negative for arthralgias and myalgias. Skin: Negative for pallor and rash. Neurological: Negative for dizziness, syncope, light-headedness and headaches. Physical Exam BP 108/73 Pulse 141 Temp (Src) 99.5 (Oral) Resp 29 Ht 5' 10 (1.78m) Wt 220 lb (99.8kg) SpO2 97% BMI 31.57 kg/(m2). O2 Therapy: Room Air Physical Exam Vitals signs and nursing note reviewed. Constitutional: General: He is not in acute distress. Appearance: He is well-developed. He is not diaphoretic. HENT: Head: Normocephalic and atraumatic. Eyes: General: No scleral icterus. Conjunctiva/sclera: Conjunctivae normal. Pupils: Pupils are equal, round, and reactive to light. Neck: Musculoskeletal: Normal range of motion and neck supple. Thyroid: No thyromegaly. Trachea: No tracheal deviation. Cardiovascular: Rate and Rhythm: Regular rhythm. Tachycardia present. Heart sounds: Normal heart sounds. No murmur. No friction rub. No gallop. Pulmonary: Effort: Pulmonary effort is normal. No respiratory distress. Breath sounds: Normal breath sounds. No wheezing or rales. Abdominal: General: Bowel sounds are normal. There is no distension. Palpations: Abdomen is soft. Tenderness: There is no abdominal tenderness. There is no guarding. Musculoskeletal: Comments: 6 inch linear surgical incision over the right hip with Steri-Strips in place, clean dry and intact without drainage, erythema, tenderness to palpation or fluctuance. Skin: General: Skin is warm and dry. Findings: No erythema or rash. Neurological: Mental Status: He is alert and oriented to person, place, and time. Comments: Alert and oriented, has word finding difficulties and intermittently slow to respond Diagnostic Testing ED Labs Ordered and Reviewed CBC + AUTO DIFF (AK,AV,EU,FV,HL,ANEL,MM,SP ) - Abnormal; Notable for the following components: Result Value Ref Range WBC 10.61 (*) 4.23 - 9.07 thou/cmm RBC 3.63 (*) 4.63 - 6.08 mil/cmm HGB 10.8 (*) 13.7 - 17.5 g/dL Hematocrit 33.4 (*) 40.1 - 51.0 % RDW 15.9 (*) 11.6 - 14.4 % RDW-SD 53.1 (*) 36.1 - 45.8 fl Nucleated RBC Absolute 0.02 (*) 0.00 - 0.01 thou/cmm All other components within normal limits URINALYSIS WITH MICROSCOPIC (AK,AV,EU,FV,HL,ANEL,MM,SP ) - Abnormal; Notable for the following components: Urobilinogen, Urine 2.0 (*) 0.2 - 1.0 EU/dL Leukocytes Esterase MODERATE (*) Negative WBC, Urine 88.5 (*) 0.0 - 5.0 /hpf All other components within normal limits VENOUS BLOOD GAS, ED-POC([place]) - Abnormal; Notable for the following components: pCO2,Venous(POCT) 25.7 (*) 40.6 - 60.0 mmHg pO2,Venous(POCT) 49.1 (*) 15.9 - 37.5 mmHg HCO3,Venous(POCT) 17.0 (*) 21.0 - 30.0 mmol/L Total CO2 (POCT) 15.8 (*) 21.0 - 28.0 mmol/L Base Excess,Venous(POCT) -5.7 (*) -3.0 - 3.0 mmol/L sO2 (POCT) 86.6 (*) 18.0 - 74.8 % O2Hb,Venous(POCT) 84.5 (*) 18.2 - 66.4 HGB,Venous(POCT) 9.7 (*) 13.5 - 17.5 g/dL HCT,Venous(POCT) 30.1 (*) 41.5 - 53.5 % Glucose (POCT) 124 (*) 70 - 99 mg/dL Sodium (POCT) 135 (*) 136.0 - 146.0 mmol/L Ionized Ca (POCT) 1.06 (*) 1.15 - 1.29 mmol/L All other components within normal limits Narrative: Meter ID:[id number] Manager Distribution Name:Kaitlyn Tamez Location:[facility], [address] [place] [address], [facility] COMPREHENSIVE METABOLIC PANEL ([place],AV,EU,FV,HL,ANEL,MM,SP ) HIGH SENSITIVITY TROPONIN T ([place] AV,EU,FV,HL,ANEL,MM,SP) C-REACTIVE PROTEIN (CRP) (AK,AV,EU,FV,HL,ANEL,MM,SP ) VENOUS BLOOD GAS, ED-POC([place]) MDRD GFR LACTIC ACID,POC([place]) HIGH SENSITIVITY TROPONIN T ([place] AV,EU,FV,HL,ANEL,MM,SP) URINE CULTURE (AK,AV,EU,FV,HL,ANEL,MM,SP ) BLOOD CULTURE DRAW (AV,EU,FV,HL,ANEL,MM,SP) BLOOD CULTURE DRAW (AV,EU,FV,HL,ANEL,MM,SP) EXPEDITED COVID19 Procedures ED Course / Clinical Impression Clinical Impressions as of Jan 24 1029 Sepsis, due to unspecified organism, unspecified whether acute organ dysfunction present (HCC) Acute cystitis without hematuria MDM / Disposition / Plan 60-year-old man presenting with tachycardia, tachypnea and concerns for fever at outside facility. On arrival he is afebrile. Given tachycardia and tachypnea sepsis alert was called. After discussion with ED pharmacist I started vancomycin and cefepime for antibiotic coverage given recent hospitalization. Patient does have allergy of rash listed to penicillin, however, I believe the benefits outweigh the risks in this situation. Unclear source of infection at this time. Surgical site looks clean dry and intact without any evidence of infection. Patient does self cath and is at risk for urinary tract infection so we will assess the urine. Chest x-ray shows no evidence of consolidations concerning for pneumonia. Lactate is 1.9. He is receiving 30 mL/kg fluids for sepsis. Urinalysis shows moderate leukocyte Estrace and 89 white blood cells which is concerning for infection. Urine culture will be sent. Given the recent orthopedic surgery the orthopedic time was contacted to make them aware of patient's arrival to the emergency department. Orthopedic resident did evaluate the patient at bedside and agreed that surgical site was unlikely source of infection. Given the patient's history of tibial vein DVT not on anticoagulation with tachycardia and tachypnea there was some concern for pulmonary embolism. Patient has allergy to contrast dye and we are unable to obtain CT PE. VQ scan was obtained and resulted as very low probability of PE. Patient's heart rate did improve after the fluids to low 110s. Blood pressure has remained stable. Patient will be admitted to the regular nursing floor for continued IV antibiotics for sepsis felt secondary to urinary tract infection at this time. SIGNATURE: MD Adams Lorenz (Res) MD Genny Resident 01/25/20 1034 Abby Pisano MD 01/27/20 1322 Normal [facility] Hemogram/Diffon 01-24-2020 Abs Immature Grans 0.16 thou/cmm High 0.00-0.05 [facility] Comment on above: Performed By: #### C BC1 #### [place] [address] Abs Neut (ANC) 9.58 thou/cmm High 1.78-5.38 [facility] Comment on above: Performed By: #### C BC1 #### [facility] [address] [place] [address] Abs. Baso 0.01 thou/cmm Normal 0.01-0.08 [facility] Comment on above: Result Comment: Smea r scanned; tech agrees with automated differential Performed By: #### C BC1 #### [facility] [address] [place] [address] Abs. [place] 0.42 thou/cmm Normal 0.30-0.82 [facility] Comment on above: Performed By: #### C BC1 #### [place] [address] Basophils/100 WBC (Bld) 0.1 % Normal [facility] Comment on above: Performed By: #### C BC1 #### [place] [address] Eosinophils (Bld) [#/Vol] 0.00 thou/cmm Low 0.04-0.54 [facility] Comment on above: Performed By: #### C BC1 #### [address] [address] Eosinophils/100 WBC (Bld) 0.0 % Normal [facility] Comment on above: Performed By: #### C BC1 #### [place] [address] Immature Grans 1.50 % Normal [facility] Comment on above: Performed By: #### C BC1 #### [facility] [address] [place], [place] [address] Lymphocytes (Bld) [#/Vol] 0.44 thou/cmm Low 0.84-2.85 [facility] Comment on above: Performed By: #### C BC1 #### [address] [address] Lymphocytes/100 WBC (Bld) 4.1 % Normal [facility] Comment on above: Performed By: #### C BC1 #### [facility] [address] [place] [address] Monocytes/100 WBC (Bld) 4.0 % Normal [facility] Comment on above: Performed By: #### C BC1 #### [facility] [address] [place] [address] Seg Neutrophil 90.3 % Normal [facility] Comment on above: Performed By: #### C BC1 #### [facility] [address] [place] [address] Erythrocyte distribution width (RBC) [Ratio] 15.9 % High 11.6-14.4 [facility] Comment on above: Performed By: #### C BC1 #### [facility] [address] [place] [address] Hematocrit (Bld) [Volume fraction] 33.4 % Low 40.1-51.0 [facility] Comment on above: Performed By: #### C BC1 #### [facility] [address] [place] [address] Hemoglobin (Bld) [Mass/Vol] 10.8 g/dL Low 13.7-17.5 [facility] Comment on above: Performed By: #### C BC1 #### [facility] [address] [place] [address] MCH (RBC) [Entitic mass] 29.8 pg Normal 25.7-32.2 [facility] Comment on above: Performed By: #### C BC1 #### [facility] [address] [place] [address] MCHC (RBC) [Mass/Vol] 32.3 % Normal 32.3-36.5 [facility] Comment on above: Performed By: #### C BC1 #### [facility] [address] [place] [address] MCV (RBC) [Entitic vol] 92.0 fL Normal 83.2-95.6 [facility] Comment on above: Performed By: #### C BC1 #### [facility] [address] [place] [address] Nucleated RBC (Bld) [#/Vol] 0.02 thou/cmm High 0.00-0.01 [facility] Comment on above: Performed By: #### C BC1 #### [facility] [address] [place], [place] [address] Nucleated RBC/100 WBC (Bld) [Ratio] 0.2 % Normal 0.0-0.2 [facility] Comment on above: Performed By: #### C BC1 #### [facility] [address] [place] [address] Platelet mean volume (Bld) [Entitic vol] 8.7 fL Normal 8.7-12.0 [facility] Comment on above: Performed By: #### C BC1 #### [facility] [address] [place] [id number] Platelets (Bld) [#/Vol] 254 thou/cmm Normal 141-365 [facility] Comment on above: Performed By: #### C BC1 #### [facility] [address] [place] [id number] RBC (Bld) [#/Vol] 3.63 mil/cmm Low 4.63-6.08 [facility] Comment on above: Performed By: #### C BC1 #### [facility] [address] [place] [address] RDW SD 53.1 fl High 36.1-45.8 [facility] Comment on above: Performed By: #### C BC1 #### [facility] [address] [place], [place] [address] WBC (Bld) [#/Vol] 10.61 thou/cmm High 4.23-9.07 [facility] Comment on above: Performed By: #### C BC1 #### [facility] [address] [place], [place] [address] NM LUNG PERFUSION ONLYon NM LUNG PERFUSION ONLY Final Report DATE OF EXAM: Jan 24 2020 9:34PM BAN [id number] - NM LUNG PERFUSION ONLY / PROCEDURE REASON: PE suspected, high pretest prob Physician Interpretation Technique: Nuclear medicine perfusion scan of the lungs (Q). The patient received a total of 5.6millicurie of technetium 99 M MAA intravenously. In addition to the multiple projectional planar images, SPECT-CT images are obtained to increase accuracy. The ventilation scan is deferred due to Covid outbreak per the hospital protocol. CT Dose-Length Product: 73 mGycm COMPARISON: The most recent chest radiograph from01/24/2020. INDICATION:Adult ER patient presented with acute respiratory illness and high clinical possibility for pulmonary embolism. The patient status post recent right total hip arthroplasty. RESULTS: Nondiagnostic chest CT: No focal consolidation, pneumothorax or pleural effusion with some areas of subpleural compressive atelectasis at the bases. No pericardial effusion. The heart size is at the upper limits of normal No obvious fractures within the limitation of the study. No thoracic lymphadenopathy. Perfusion scan (planar/SPECT):No wedge shaped perfusion defects. The perfusion on the SPECT images somewhat heterogeneous with subtle fissure sign detected on the left seen on the SPECT images. IMPRESSION: Perfusion-only, modified PIOPED: The overall probability for pulmonary embolism is very low. Criminalist Technician: HOLLY Transcribe Date/Time: Jan 24 2020 9:05P Dictated by : RENE ANDERSON MD This examination was interpreted and the report reviewed and electronically signed by: RENE ANDERSON MD on Jan 24 2020 9:57PM EST Normal [facility] PROGRESSon 01-24-2020 PROGRESS HNO ID: [id number] Author: Rosaura Ellis (Rt) Service: Nuclear Medicine Author Type: Carcass Splitter Type: Progress Notes Filed: 01/24/2020 9:35 PM Note Text: RADIOLOGY SERVICE PROGRESS NOTE SERVICE DATE: 01/24/2020 SERVICE TIME: 9:09 PM PATIENT IDENTITY VERIFICATION COMPLETED USING TWO (2) STANDARD IDENTIFIERS: Name and Date of confirmed by patient verbally FALL SCREENING: Has the patient had 2 falls in the last year or 1 fall with injury or currently using an Ambulatory Assistive Device (Walker, Cane, Wheelchair, Crutches, etc.)? No PATIENT GENDER DATA: .male ALLERGIES: Reviewed and unchanged MEDICATIONS REVIEWED: Yes PATIENT RELEVANT IMPLANT DATA REVIEWED: Not Applicable CREATININE: Creatinine Date Value Ref Range Status 01/24/2020 0.86 0.73 - 1.22 mg/dL Final 01/18/2020 0.87 0.73 - 1.22 mg/dL Final 01/17/2020 1.01 0.73 - 1.22 mg/dL Final eGFR-All Other Races Date Value Ref Range Status 02/19/2018 >60 . Final Comment: eGFR (Estimated GFR) Units of measure: mL/min/1.73 meters squared eGFR is derived from the reexpressed MDRD Study equation using the following parameters: serum creatinine, age, gender and race. The creatinine assay has been calibrated to be traceable to IDMS. An eGFR <60 mL/min/1.73m2 for >3 months is consistent with chronic kidney disease. Refer to KDOQI guidelines for clinical interpretation. In patients with unstable renal function, e.g. those with acute kidney injury, the eGFR may not accurately reflect actual GFR. eGFR- Date Value Ref Range Status 02/19/2018 >60 Final P.O.C.T. RESULTS: N/A January 24, [address] PERFORMED: No IV SITE: Inpatient - refer to [facility] documentation POST EXAM PIV STATUS: Not applicable PROCEDURE TYPE: NM INJECT: NM PERFUSION LUNG. 5.6 mCi Tc99m MAA. No other medications given.. ADMINISTRATION TIME: 2019 PATIENT DISCHARGED TO: Patient taken to IP transport area for return to RNF/ICU/ED. A Diagnostic radioactive procedure has taken place, with no further precautions necessary other than routine body substance precautions. More information regarding radiation safety can be found using this link: [email or web address] SIGNATURE: RT Rhonda PATIENT NAME: Velia Bagley DATE: January 24, 2020 TIME: 9:09 PM PAGER/CONTACT #: Normal [facility] Rapid, COVID 19on 01-24-2020 Rapid, COVID 19 Negative Normal Negative [facility] [place] Comment on above: Result Comment: This test has been authorized by the FDA under an Emergency Use Authorization (EUA). Performed By: #### R COVD #### [place] [address] Troponin T, High Sens.on Troponin T, High Sens. 32 ng/L High 0-11 [facility] Comment on above: Result Comment: Mima ents taking a biotin dose of up to 5 mg/day should refrain from taking biotin for 4 hours prior to sample collection. Patients taking a biotin dose of 5 to 10 mg/day should refrain from taking biotin for 8 hours prior to sample collection. Patients taking a biotin dose > 10 mg/day should consult with their physician or the laboratory prior to having a sample taken. Clinicians should consider biotin interference as a source of error, when clinically suspicious of the laboratory result. Performed By: #### B MP #### [place] [address] Troponin T, High Sens. 29 ng/L High 0-11 [facility] Comment on above: Result Comment: Mima ents taking a biotin dose of up to 5 mg/day should refrain from taking biotin for 4 hours prior to sample collection. Patients taking a biotin dose of 5 to 10 mg/day should refrain from taking biotin for 8 hours prior to sample collection. Patients taking a biotin dose > 10 mg/day should consult with their physician or the laboratory prior to having a sample taken. Clinicians should consider biotin interference as a source of error, when clinically suspicious of the laboratory result. Performed By: #### B MP #### [place] [address] Urinalysis Routineon 020 Bacteria LM.HPF (Urine sed) [#/Area] NONE Normal None [facility] Comment on above: Performed By: #### U RIN2 #### [place] [address] Ep Cells Urine 0.1 /hpf Normal 0.0-5.0 [facility] Comment on above: Performed By: #### U RIN2 #### [place] [address] Hyaline Cast 0.3 /lpf Normal 0.0-1.0 [facility] Comment on above: Performed By: #### U RIN2 #### [place] [address] RBC LM.HPF (Urine sed) [#/Area] 0.9 /[HPF] Normal 0.0-5.0 [facility] Comment on above: Performed By: #### U RIN2 #### [facility] [address] [place] [address] WBC LM.HPF (Urine sed) [#/Area] 88.5 /[HPF] High 0.0-5.0 [facility] Comment on above: Performed By: #### U RIN2 #### [facility] [address] [place] [address] Appearance (U) CLEAR Normal [facility] Comment on above: Performed By: #### U RIN2 #### [facility] [address] [place] [address] Bilirubin (U) [Mass/Vol] Negative Normal Negative [facility] Comment on above: Performed By: #### U RIN2 #### [facility] [address] [place] [address] Color (U) DK YELLOW Normal [facility] Comment on above: Performed By: #### U RIN2 #### [place] [address] Glucose Ql (U) Negative Normal Negative [facility] Comment on above: Performed By: #### U RIN2 #### [place] [address] Hemoglobin,Urine Negative Normal Negative [facility] Comment on above: Performed By: #### U RIN2 #### [facility] [address] [place] [address] Ketone Urine Negative Normal Negative [facility] Comment on above: Performed By: #### U RIN2 #### [facility] [address] [place] [address] Leukocytes Esterase MODERATE Abnormal Negative [facility] Comment on above: Performed By: #### U RIN2 #### [place] [address] Nitrites Urine Negative Normal Negative [facility] Comment on above: Performed By: #### U RIN2 #### [facility] [address] [place] [address] pH (U) 7.0 [pH] Normal 5.0-8.0 [facility] Comment on above: Performed By: #### U RIN2 #### [facility] [address] [place], [place] [address] Protein (U) [Mass/Vol] Negative Normal Negative [facility] Comment on above: Performed By: #### U RIN2 #### [facility] [address] [place], [place] [address] Specific [place], Ur 1.016 Normal 1.005-1.030 [facility] Comment on above: Performed By: #### U RIN2 #### [facility] [address] [place], [place] [address] Urobilinogen,Ur 2.0 EU/dL Abnormal 0.2-1.0 [facility] [place] Comment on above: Performed By: #### U RIN2 #### [facility] [address] [place] [place], [place] [address] XR CHEST 1V FRONTALon 2019 XR CHEST 1V FRONTAL Final Report DATE OF EXAM: Jan 24 2020 6:15PM AKX [id number] - XR CHEST 1V FRONTAL / PROCEDURE REASON: Acute respiratory illness Physician Interpretation EXAMINATION: CHEST RADIOGRAPH (SINGLE VIEW AP OR PA) CLINICAL HISTORY: Acute respiratory illness MQ: [id number] Comparison: None RESULT: Lines, tubes, and devices: None. Lungs and pleura: No consolidation. No lung mass. No pleural effusion. Cardiomediastinal silhouette: Normal cardiomediastinal silhouette. Other: None IMPRESSION: No acute radiographic abnormality. Criminalist Technician: PSCB Transcribe Date/Time: Jan 24 2020 6:19P Dictated by : ALIX COLBY MD This examination was interpreted and the report reviewed and electronically signed by: ALIX COLBY MD on Jan 24 2020 6:20PM EST Normal [facility] CNPNon 01-23-2020 CNPN Telephone (AGPOB1) -------- VELIA BAGLEY ([id number]) 1960 M Date Time Provider Department 01/23/20 [facility] AGPOB1 During your visit today, we recorded the following information about you: Oni Tamayo CMA 01/23/2020 10:04 AM Signed Per PRABHU, spoke with Melissa and orders given: Pelvis xray on 01/29 and send disc for review. VIMAL Alvarez CMA 01/27/2020 10:17 AM Signed Patient is currently in the hospital. Xrays will be order prior to patient's discharge. Oni Tamayo CMA Allergies As of Date: 01/23/2020 Noted Allergy Reaction AVOCADO 04/26/2018 7 - Swelling BACLOFEN 02/19/2018 14 - Other: See Comments Comments: Dizziness and full body weakness Candasartan [Other] 08/19/2007 2 - Rash CHOCOLATE 05/17/2018 16 - Unknown CIPROFLOXACIN (BULK) 06/10/2016 10 - Anaphylaxis GRASS POLLEN 04/26/2018 16 - Unknown INDOCIN (INDOMETHACIN SODIUM) 07/24/2006 2 - Rash IVP DYE (IODINE) 07/24/2006 10 - Anaphylaxis PENICILLINS 07/24/2006 2 - Rash PINE OIL 04/26/2018 16 - Unknown PROPRANOLOL 14 - Other: See Comments Comments: Severe low bp and kidneys shutting down. SULFA (SULFONAMIDE ANTIBIOTICS) 09/02/2017 2 - Rash 9 - Itching VALIUM (DIAZEPAM) 06/15/2017 14 - Other: See Comments Comments: Depression Date Reviewed: 01/21/2020 Reviewed by: Willam Batres) BULL Patel - Fully Assessed Reason for Visit: Orders [681] Prescriptions as of 01/23/2020 Sig: OXYCODONE 5 MG TABLET Take 1-2 tablets by mouth tam* ENOXAPARIN 40 MG/0.4 ML SUBCU* Inject 0.4 mL subcutaneously * VERAPAMIL ER (SR) 120 MG TABL* Take 1 tablet by mouth once d* DOCUSATE SODIUM 100 MG CAPSULE Take 1 capsule by mouth twice* ASPIRIN 81 MG CHEWABLE TABLET Take 81 mg by mouth twice kalyan* OMEPRAZOLE 20 MG CAPSULE,TUCKER* Take 20 mg by mouth twice kalyan* TOPIRAMATE 100 MG TABLET Take 100 mg by mouth four nani* AIMOVIG AUTOINJECTOR 140 MG/M* Inject 140 mg subcutaneously * VENLAFAXINE ER 75 MG CAPSULE,* Take 75 mg by mouth once lamont* LEVOCETIRIZINE 5 MG TABLET Take 2.5 mg by mouth daily at* TIOTROPIUM BROMIDE 18 MCG CAP* Inhale 18 mcg as instructed o* LEVALBUTEROL 1.25 MG/3 ML CAYLA* Use 1 Ampule via nebulizer ev* CALCITONIN (SALMON) NASAL Use 1 Inhalation in the nose * TAMSULOSIN 0.4 MG CAPSULE Take 2 capsules by mouth at b* DULOXETINE 60 MG CAPSULE,TUCKER* Take 60 mg by mouth once lamont* PRIMIDONE 250 MG TABLET Take 250 mg by mouth daily at* CLONIDINE HCL 0.1 MG TABLET Take 0.1 mg by mouth twice da* NITROFURANTOIN MONOHYDRATE AND * TAKE 1 CAPSULE BY MOUTH EVERY* AMITRIPTYLINE 50 MG TABLET Take 50 mg by mouth daily at * ATORVASTATIN 40 MG TABLET Take 40 mg by mouth once lamont* FASENRA 30 MG/ML SUBCUTANEOUS* Inject 30 mg subcutaneously e* BUDESONIDE-FORMOTEROL HFA 160* Inhale 2 Puffs as instructed * GABAPENTIN 800 MG TABLET Take 800 mg by mouth four nani* LOSARTAN 100 MG TABLET Take 100 mg by mouth once kalyan* RIZATRIPTAN 10 MG TABLET Take 10 mg by mouth as needed* FLUTICASONE PROPIONATE 50 MCG* Use 2 Sprays in each nostril * MONTELUKAST 10 MG TABLET Take 10 mg by mouth daily at * POTASSIUM CHLORIDE ER 20 MEQ * Take 20 mEq by mouth four nani* SPIRONOLACTONE 25 MG TABLET Take 25 mg by mouth once lamont* CELECOXIB 200 MG CAPSULE Take 400 mg by mouth twice da* PROAIR HFA INHALATION Inhale 2 Puffs as instructed * Problem List As Of Date 01/23/2020 Noted Resolved MIGRAINE VARIANT INTRACTABLE [G43.819] 07/24/2006 CARPAL TUNNEL SYNDROME [G56.00] 04/20/2007 Cervicalgia [M54.2] 04/14/2013 Myalgia and myositis, unspecified [QIL1742] 04/14/2013 Iron deficiency anemia [D50.9] 06/10/2016 Weakness [R53.1] 06/24/2016 Lymphadenopathy [R59.1] 02/11/2018 More... Closed displaced fracture of right femoral neck*10/16/2019 Status post total hip replacement, right [Z96.6*01/16/2020 01/20/2020 Encounter Status:Closed by ONI TAMAYO CMA on 01/27/20 [facility] PROGRESSon 01-21-2020 PROGRESS HNO ID: [id number] Author: Jayant (Betty) MD Carola Service: Orthopaedic Surgery Author Type: Resident Type: Progress Notes Filed: 01/21/2020 7:31 AM Note Text: ORTHOPAEDIC SURGERY DAILY PROGRESS NOTE Patient Name: Velia Bagley Date of Evaluation: 01/21/2020 Admission Date: 01/16/2020 Time of Evaluation: 6:45 AM ASSESMENT: POD #?5?S/P: R RONALD for FNFx non-union ? ? PLAN: -Pain Control -DVT Prophylaxis: Lovenox 40mg daily x 21 D -PT/OT: ?Full Weight Bearing, posterior precautions -Maintain aquacel dressing -D/C planning:?SNF/acute rehab when accepted INTERVAL HPI: Patient monitored, no new events overnight. Pt doing well. Pain controlled. Working with PT. OBJECTIVE: BP 129/67 Pulse 89 Temp 36.7 ?C (98.1 ?F) (Oral) Resp 18 Ht 177.8 cm (5' 10 ) Wt 99.8 kg (220 lb) SpO2 96% BMI 31.57 kg/m? Intake/Output Summary (Last 24 hours) 01/19 2300 - 01/20 0659 In: 500 [PO:500] Out: 800 [Urine:800] Exam: General: NAD, AAOx3 Extremities: RLE - Dressing c/d/i to R hip - SILT S/S/SP/DP/T. - Motor intact DF/PF/EHL. - DP and PT pulses palpable, foot warm with brisk capillary refill. - Compartments soft, compressible. - Tolerates passive stretch of digits. Labs: BMP: Sodium 135 01/18/2020 Potassium 4.2 01/18/2020 Chloride 107 01/18/2020 CO2 20 01/18/2020 BUN 14 01/18/2020 Creatinine, Whole Blood (iSTAT) 0.87 01/18/2020 Glucose 98 01/18/2020 CBC: WBC 8.53 01/18/2020 Hemoglobin 10.9 01/18/2020 Hematocrit 33.3 01/18/2020 Platelet Count 173 01/18/2020 COAGS: APTT 23.2 10/16/2019 PT INR 0.98 10/16/2019 Jayant Srivastava MD Resident, Orthopaedic Surgery Pager: [phone] 01/21/2020 6:45 AM [facility] ALLIED HEALTHon 01-20-2020 ALLIED HEALTH HNO ID: [id number] Author: Jo (Rn) Giovana Service: Nursing Author Type: Registered Nurse Type: Allied Health Filed: 01/20/2020 9:32 AM Note Text: ANCILLARY ORTHOPEDIC RESERVE OFFICER PROGRESS NOTE SERVICE DATE: 01/20/2020 SERVICE TIME: 924 Spoke to patient in room, he is up in chair, doing well. SNF choices are 1-[facility], 2-[facility], CM aware. Patient will need insurance authorization. I will continue to follow. SIGNATURE: Jo Cruz RN PATIENT NAME: Velia Bagley DATE: January 20, 2020 TIME: 9:31 AM PAGER/CONTACT #: [phone] [facility] CASE MANAGEMon 01-20-2020 CASE MANAGEM HNO ID: [id number] Author: Caryl HarperRn) BULL Minor Service: Care Management Author Type: Registered Nurse Type: Care Mgt Progress Note Filed: 01/20/2020 4:10 PM Note Text: CARE MANAGEMENT PROGRESS NOTE SERVICE DATE: 01/20/2020 SERVICE TIME: 1603 LOS: 4 days [facility] accepted and per patient that is facility of choice. [facility] can accept under floor-snf program Needs covid test within 72 hours. Expedited covid test ordered. First available transport available after 6pm is 2100. Discussed with patient and he does not want to leave that late and is requesting to leave Thursday morning. snf notified transport arranged for thursday SIGNATURE: Caryl Minor RN PATIENT NAME: Velia Bagley DATE: January 20, 2020 TIME: 4:03 PM PAGER/CONTACT #: [phone] [facility] CASE MANAGEM HNO ID: [id number] Author: Kathleen hTomas Service: Care Management Author Type: ? Type: Care Mgt Progress Note Filed: 01/20/2020 12:34 PM Note Text: CARE MANAGEMENT PROGRESS NOTE SERVICE DATE: 01/20/2020 SERVICE TIME: 1045 LOS: 4 days IMM Follow Up Copy Given: Yes Copy given to:: Patient Method: In Person SIGNATURE: Kathleen Thomas PATIENT NAME: Velia Bagley DATE: January 20, 2020 TIME: 12:34 PM PAGER/CONTACT #: [facility] CASE MANAGEM HNO ID: [id number] Author: Caryl (Rn) BULL Minor Service: Care Management Author Type: Registered Nurse Type: Care Mgt Progress Note Filed: 01/20/2020 11:21 AM Note Text: CARE MANAGEMENT PROGRESS NOTE SERVICE DATE: 01/20/2020 SERVICE TIME: 1119 LOS: 4 days snf choices were 1. [facility], 2. [facility], 3. [facility] Will need precert SIGNATURE: Caryl Minor RN PATIENT NAME: Velia Bagley DATE: January 20, 2020 TIME: 11:19 AM PAGER/CONTACT #: [phone] [facility] PLAN OF CAREon 01-20-2020 PLAN OF CARE HNO ID: [id number] Author: Abraham Hanna (Pharmacist) Service: Pharmacy Author Type: Pharmacist Type: Plan of Care Filed: 01/20/2020 3:20 PM Note Text: DISCHARGE MEDICATION REVIEW BY PHARMACY Patient Name: Velia Bagley Account #: Data Unavailable Admission Date: 01/16/2020 Date of Contact: January 20, 2020 Time of Contact: 3:19 PM Medication list was reviewed by a Pharmacist for drug interactions or drug related problems:Yes Below is a summary of pharmacist recommendations discussed with LIP: No Recommendations at this time from Discharge Medication List. Cyndi (pharmacist)Abraham January 20, 2020 3:19 PM Ext: [phone] 01/20/2020 3:19 PM Medication List START taking these medications docusate sodium 100 mg capsule Commonly known as: COLACE Take 1 capsule by mouth twice daily as needed for Constipation. enoxaparin 40 mg/0.4 mL Commonly known as: LOVENOX Inject 0.4 mL subcutaneously once daily for 16 days. CHANGE how you take these medications oxyCODONE IR 5 mg immediate release tablet Commonly known as: ROXICODONE Take 1-2 tablets by mouth every 6 hours as needed for Pain for up to 7 days. What changed: ? how much to take ? reasons to take this primidone 250 mg tablet Commonly known as: MYSOLINE What changed: Another medication with the same name was removed. Continue taking this medication, and follow the directions you see here. verapamil SR 120 mg CR tablet Commonly known as: CALAN SR, ISOPTIN SR Take 1 tablet by mouth once daily. Start taking on: January 21, 2020 What changed: when to take this CONTINUE taking these medications AIMOVIG AUTOINJECTOR 140 mg/mL syringe Generic drug: erenumab-aooe amitriptyline 50 mg tablet Commonly known as: ELAVIL aspirin 81 mg chewable tablet atorvastatin 40 mg tablet Commonly known as: LIPITOR budesonide-formoterol 160-4.5 mcg/actuation inhaler Commonly known as: SYMBICORT CALCITONIN (SALMON) NASAL CeleBREX 200 mg capsule Generic drug: celecoxib cloNIDine HCl 0.1 mg tablet Commonly known as: CATAPRES CYMBALTA 60 mg capsule Generic drug: DULoxetine EFFEXOR XR 75 mg 24 hr capsule Generic drug: venlafaxine ER FASENRA 30 mg/mL injection Generic drug: benralizumab fluticasone 50 mcg/actuation nasal spray Commonly known as: FLONASE Use 2 Sprays in each nostril once daily. gabapentin 800 mg tablet Commonly known as: NEURONTIN levalbuterol 1.25 mg/3 mL nebulizer solution Commonly known as: XOPENEX losartan 100 mg tablet Commonly known as: COZAAR montelukast 10 mg tablet Commonly known as: SINGULAIR nitrofurantoin monohydrate and macrocrystal 100 mg capsule Commonly known as: MACROBID TAKE 1 CAPSULE BY MOUTH EVERY DAY omeprazole 20 mg capsule Commonly known as: PriLOSEC potassium chloride ER 20 mEq tablet Commonly known as: K-DUR, KLOR-CON PROAIR HFA INHALATION rizatriptan 10 mg tablet Commonly known as: MAXALT spironolactone 25 mg tablet Commonly known as: ALDACTONE tamsulosin ER 0.4 mg Commonly known as: FLOMAX Take 2 capsules by mouth at bedtime. tiotropium 18 mcg inhalation capsule Commonly known as: SPIRIVA topiramate 100 mg tablet Commonly known as: TOPAMAX XYZAL 5 mg tablet Generic drug: levocetirizine Where to Get Your Medications You can get these medications from any pharmacy Bring a paper prescription for each of these medications ? enoxaparin 40 mg/0.4 mL ? oxyCODONE IR 5 mg immediate release tablet Normal [facility] PROGRESSon 01-20-2020 PROGRESS HNO ID: [id number] Author: Hiral Castaneda Service: Orthopaedic Surgery Author Type: Physician Type: Progress Notes Filed: 01/20/2020 8:25 AM Note Text: I evaluated the patient and personally participated in the antonio components. I agree with the resident's findings and plan with the following revisions and/or additions: Apply fresh Aquacel at discharge. Signature: Hiral Castaneda MD Service Date: 01/20/2020 Service Time: 8:24 AM Orthopaedic INPATIENT PROGRESS NOTE ASSESMENT: POD # 4 S/P: R RONALD for FNFx non-union ? ? PLAN: -Pain Control -DVT Prophylaxis: Lovenox 40mg daily x 21 D -PT/OT: Full Weight Bearing, posterior precautions -Maintain aquacel dressing -D/C planning: SNF/acute rehab when accepted ? ? INTERVAL HPI: Patient monitored, no new events overnight. Pain controlled this AM. MEDICATIONS: Current Facility-Administered Medications Medication Dose Route Frequency - montelukast 10 mg tab(s) (SINGULAIR) 10 mg ORAL AT BEDTIME - potassium chloride ER 20 mEq tab(s) (K-DUR, KLOR-CON) 20 mEq ORAL QID - amitriptyline 50 mg tab(s) (ELAVIL) 50 mg ORAL AT BEDTIME - atorvastatin 40 mg tab(s) (LIPITOR) 40 mg ORAL DAILY - losartan 100 mg tab(s) (COZAAR) 100 mg ORAL DAILY - primidone 250 mg tab(s) (MYSOLINE) 250 mg ORAL AT BEDTIME - DULoxetine 60 mg cap(s) (CYMBALTA) 60 mg ORAL DAILY - venlafaxine ER 75 mg cap(s) (EFFEXOR XR) 75 mg ORAL DAILY - albuterol 2.5 mg /3 mL (0.083 %) 2.5 mg (PROVENTIL) 2.5 mg INHALATION q 4 H PRN - oxyCODONE IR 5-10 mg tab(s) (ROXICODONE) 5-10 mg ORAL q 3 H PRN - ondansetron 4 mg tab(s) (ZOFRAN) 4 mg ORAL q 6 H PRN Or - ondansetron (PF) 4 mg injection (ZOFRAN) 4 mg INTRAVENOUS q 6 H PRN - magnesium hydroxide 400 mg/5 mL 30 mL (MOM) 30 mL ORAL DAILY PRN - bisacodyl EC 10 mg tab(s) (DULCOLAX) 10 mg ORAL DAILY - aluminum-magnesium hydroxide-simethicone 200-200-20 mg/5 mL 30 mL (MAALOX,MYLANTA,MAG-AL PLUS) 30 mL ORAL q 2 H PRN - ascorbic acid (vitamin C) 500 mg tab(s) (VITAMIN C) 500 mg ORAL BID w MEALS - docusate sodium 100 mg cap(s) (COLACE) 100 mg ORAL BID - enoxaparin 40 mg injection (LOVENOX) 40 mg SUBCUTANEOUS DAILY - NaCl 0.9% iv infusion 75 mL/hr INTRAVENOUS CONTINUOUS - sodium chloride 0.9 % (flush) 2-10 mL (BD POSIFLUSH) 2-10 mL INTRAVENOUS q 12 H - morphine 2-4 mg injection 2-4 mg INTRAVENOUS q 2 H PRN - acetaminophen 650 mg tab(s) (TYLENOL) 650 mg ORAL TID - tiotropium bromide 2.5 mcg/actuation 2 Puff (SPIRIVA RESPIMAT) 2 Puff INHALATION DAILY - fluticasone-vilanterol 100-25 mcg/dose 1 Inhalation (BREO ELLIPTA) 1 Inhalation INHALATION DAILY - pantoprazole DR 20 mg tab(s) (PROTONIX) 20 mg ORAL BID AC (0600/1600) - cetirizine 10 mg tab(s) (ZyrTEC) 10 mg ORAL AT BEDTIME - gabapentin 800 mg cap(s) (NEURONTIN) 800 mg ORAL QID - verapamil SR 120 mg tab(s) (CALAN SR, ISOPTIN SR) 120 mg ORAL DAILY - tamsulosin ER 0.8 mg cap(s) (FLOMAX) 0.8 mg ORAL AT BEDTIME - nitrofurantoin monohydrate and macrocrystal 100 mg cap(s) (MACROBID) 100 mg ORAL DAILY - topiramate 200 mg tab(s) (TOPAMAX) 200 mg ORAL DAILY (7 AM) - topiramate 100 mg tab(s) (TOPAMAX) 100 mg ORAL DAILY AT 12 PM - topiramate 200 mg tab(s) (TOPAMAX) 200 mg ORAL DAILY (5 PM) - topiramate 100 mg tab(s) (TOPAMAX) 100 mg ORAL DAILY AT 9 PM PHYSICAL EXAM: BP 122/71 Pulse 87 Temp 36.8 ?C (98.2 ?F) (Axillary) Resp 16 Ht 177.8 cm (5' 10 ) Wt 99.8 kg (220 lb) SpO2 96% BMI 31.57 kg/m? Body mass index is 31.57 kg/m?. General: NAD Extremities: Right Lower Extremity: Dorsalis pedis pulses palpable. Posterior tibial pulses palpable. Dorsi flexion 5/5. Plantar flexion 5/5. Extensor hallucis extension: 5/5. Sensory intact to light touch DP/SP/Carroll/Sa/Tib. Dressing clean, dry and intact. DATA: CBC: No results for input(s): WBC, RBC, HB, HCT, PLT, MCV, MCH, MPV, RDW in the last 24 hours. BMP: No results for input(s): NA, K, CHLOR, CO2, BUN, CREAT, GLUC in the last 24 hours. IMAGING: no new images SIGNATURE: Erich Olivera MD PAGER: [phone] DATE of SERVICE: 01/20/2020 TIME of SERVICE: 6:03 AM Normal [facility] Rapid, COVID 19on 01-20-2020 Rapid, COVID 19 Negative Normal Negative [facility] [place] Comment on above: Result Comment: This test has been authorized by the FDA under an Emergency Use Authorization (EUA). Performed By: #### R COVD #### [address] [address] THERAPY NTon 01-20-2020 THERAPY NT HNO ID: [id number] Author: Saira Berry Service: Physical Therapy Author Type: Filemaker Developer Type: Therapy (PT/OT/Speech/Resp) Filed: 01/20/2020 3:37 PM Note Text: -------- Attestation signed by Rosemarie HarperPt) Matt at 01/20/2020 3:50 PM I reviewed and agree with the documentation corresponding to this therapy visit. SIGNATURE: Rosemarie Gutierrez PT DATE: January 20, 2020 TIME: 3:50 PM -------- Physical Therapy Treatment SERVICE DATE: 01/20/2020 SERVICE TIME: 1337 to 1405 ROOM: [id number] Recommended Discharge Disposition: Acute Rehab Justification For Post Acute Needs: Anticipate that patient will require daily (5x/wk) skilled therapy in a post-acute facility setting at the time of acute hospital discharge;Willing to participate;Good premorbid functional status;Anticipate patient will tolerate 3 hours of daily therapy at the time of admission to post-acute setting PT Recommendations to Nursing: Transfer to/from chair;OOB for Meals;With assist of 2 people Device: Wheeled Walker PT 6 Clicks Score: 14 Precautions/Activity Restrictions: Total Hip Replacement;Weight Bearing Restrictions;Fall Risk;Bed/Chair Alarm Isolation Type: None Extremity With Weight Bearing Restricted: Right Lower Extremity Right Lower Extremity Weight Bearing Status: WBAT Total Hip Replacement Precautions: Posterior ASSESSMENT : Patient Disposition at Start of Session: Supine in Bed;Call [place] in Reach;Chair Alarm Patient Disposition at End of Session: Supine in Bed;Call [place] in Reach;Bed Alarm;SCDs Tolerated Full Session Fatigue Patient voiced upset that nursing would not allow him to return to bed sooner. Complained of his buttock burning and his migraine pain is worsening. Patient with greater control of both knees with walking this session with buckling 1-2 times with assist to minimize fall risk. Patient requires cues/assist to maintain hip precautions with bed mobility and elevations. Goals ongoing. Physical Therapy Problem List: Pain;Safety Deficits;Impaired Self Care;Decreased Activity Tolerance;Decreased Strength;Functional Mobility Impairment;Balance Impaired;Decreased Range Of Motion;Cognitive Deficit Patient /Caregiver Goals: Walk;Care For Self Goals for Plan of Care: Able to perform HEP with: Verbal Cues Only Transfer supine to/from sit with: Minimal Assistance Transfer sit to/from stand with: Contact Guard Assistance Ambulate with: Contact Guard Assistance Distance: 30 ft Device: Wheeled Walker Goal: recall 3/3 posterior hip precautions and maintain with mobility Progress Toward Goals: Progressing as expected Due To: fatigue Rehab Potential: Good PLAN: Treatment Frequency (times per week): BID Current admission Treatment Interventions: Education;Joint Mobility;Strengthening;F unctional Mobility Training;Balance Training;Neuromuscular Re-education Plan of Care developed with: Patient Additional personnel present during visit: Bette Gutierrez TREATMENT INTERVENTIONS: Therapy Diagnosis: Reduced mobility-other Interventions Provided: Therapeutic Exercise (12992);Therapeutic Activity (13502);Gait Training (18514) Therapeutic Exercise (78271) Treatment Minutes: 13 1 unit Skilled Intervention(s): Instruction in therapeutic exercise Patient completed right hip fracture protocol (ankle pump, quad set, gluteal set, heel slide, hip abd/add to neutral, short arc quad, long arc quad, hip adductor squeeze) x 12-15 reps with min amount of assist. Educated patient on posterior hip precautions. Patient recalls 3/3 hip precautions but needs cues to adhere to precautions. Patient reports 9/10 pain. Patient set up with ice to surgical hip and elevated lower extremity as needed. Verbal and tactile cuing provided to avoid holding his breathe and maintain proper alignment. Therapeutic Activity (72627) Treatment Minutes: 5 0 units Skilled Intervention(s): Instructed patient in sit to supine using safe, effective technique to flat bed. Patient attempts to get both legs into bed but needs cues/assist to avoid rotation/twisting. Instruction in sit to and from stand technique with proper hand placement and body positioning at edge of chair with emphasis on not bending too far forward. Education with use of cold pack for pain management and call light for assistance. Gait Training (78150) Treatment Minutes: 10 1 unit Skilled Intervention(s): Instruction in sequencing, gait pattern and Instruction in correction of gait deviations. Patient ambulates with slow, antalgic, step to pattern. Cues to avoid getting too close to front of walker, look up, increase foot clearance, and to avoid twisting on his feet to negotiate turns. Total Timed Code Treatment Minutes: 28 Total Treatment Time (minutes): 28 SUBJECTIVE: Current Hospital Course: Chart reviewed and no significant medical updates relevant to therapy were noted Reason for Physical Therapy Consult : eval Relevant Past Medical History: recent hip fracture October 2019 s/p cannulated screw, carpal tunnel, neck pain Patient Report: pain 7-8/10 headache pain is the worst. Home Environment Patient Lives With: Family(Son) Assistance Available: methods time analyst Entry To Home: No Stairs Number Of Stairs To Bed/Bath: 0 Tub/Shower Type: tub shower combo Equipment Owned: Wheeled Walker;Shower Chair Prior Functional Level: Within Functional Limits Prior Functional Level Comments: Pt independent IT SPECIALIST OBJECTIVE: CURRENT FUNCTIONAL STATUS: Current Functional Mobility Assist Level Additional Information Rolling Supine to Sit Sit to Supine Moderate Assistance Scooting Minimal Assistance Sit to Stand Minimal Assistance Stand to Sit Minimal Assistance Bed to Chair Toilet/Commode Gait Minimal Assistance Gait Device: Wheeled Walker Gait Distance (feet): intervals of 15-20ft Stairs Curb Step Car Transfer Gait Deviations Right Lower Extremity: Foot clearance decreased;Heel strike during initial stance decreased;Push off during terminal stance decreased;Stance time decreased;Step length decreased;Weight bearing decreased General Deviations/Observations: Antalgic gait;Tati decreased;Difficulty changing direction/turning;Flexed trunk posture;Narrow Base of Support;Non-functional gait speed;Shuffling Gait;Step length decreased;UE weight bearing on assistive device excessive JH-HLM: 6: Walk 10 steps or more Please see discipline specific clinical documentation flowsheet for complete details for this therapy evaluation/treatment. SIGNATURE: Saira Berry PTA PATIENT NAME: Velia Bagley DATE: January 20, 2020 TIME: 2:09 PM Normal [facility] THERAPY NT HNO ID: [id number] Author: Saira Berry Service: Physical Therapy Author Type: Filemaker Developer Type: Therapy (PT/OT/Speech/Resp) Filed: 01/20/2020 9:37 AM Note Text: -------- Attestation signed by Rosemarie Gutierrez at 01/20/2020 12:04 PM I reviewed and agree with the documentation corresponding to this therapy visit. SIGNATURE: Rosemarie Gutierrez, PT DATE: January 20, 2020 TIME: 12:04 PM -------- Physical Therapy Treatment SERVICE DATE: 01/20/2020 SERVICE TIME: 858 to 925 ROOM: [place] [address] Recommended Discharge Disposition: Acute Rehab Justification For Post Acute Needs: Anticipate that patient will require daily (5x/wk) skilled therapy in a post-acute facility setting at the time of acute hospital discharge;Willing to participate;Good premorbid functional status;Anticipate patient will tolerate 3 hours of daily therapy at the time of admission to post-acute setting PT Recommendations to Nursing: Transfer to/from chair;OOB for Meals;With assist of 2 people Device: Wheeled Walker PT 6 Clicks Score: 13 Precautions/Activity Restrictions: Total Hip Replacement;Weight Bearing Restrictions;Fall Risk;Bed/Chair Alarm Isolation Type: None Extremity With Weight Bearing Restricted: Right Lower Extremity Right Lower Extremity Weight Bearing Status: WBAT Total Hip Replacement Precautions: Posterior ASSESSMENT : Patient Disposition at Start of Session: Supine in Bed;Call [place] in Reach;Bed Alarm;SCDs Patient Disposition at End of Session: OOB in Chair;Call [place] in Reach;Chair Alarm Tolerated Full Session Fatigue Patient continues to move at a non functional pace and needed frequent cues to adhere to hip precautions with bed mobility. Patient unable to complete exercises without assistance. Close chair follow recommended due to buckling of both knees. Goals ongoing. Physical Therapy Problem List: Pain;Safety Deficits;Impaired Self Care;Decreased Activity Tolerance;Decreased Strength;Functional Mobility Impairment;Balance Impaired;Decreased Range Of Motion;Cognitive Deficit Patient /Caregiver Goals: Walk;Care For Self Goals for Plan of Care: Able to perform HEP with: Verbal Cues Only Transfer supine to/from sit with: Minimal Assistance Transfer sit to/from stand with: Contact Guard Assistance Ambulate with: Contact Guard Assistance Distance: 30 ft Device: Wheeled Walker Goal: recall 3/3 posterior hip precautions and maintain with mobility Progress Toward Goals: Progressing as expected Due To: fatigue Rehab Potential: Good PLAN: Treatment Frequency (times per week): BID Current admission Treatment Interventions: Education;Joint Mobility;Strengthening;F unctional Mobility Training;Balance Training;Neuromuscular Re-education Plan of Care developed with: Patient Additional personnel present during visit: Bette Gutierrez TREATMENT INTERVENTIONS: Therapy Diagnosis: Reduced mobility-other Interventions Provided: Therapeutic Exercise (32922);Therapeutic Activity (13631);Gait Training (96829) Therapeutic Exercise (47675) Treatment Minutes: 12 1 unit Skilled Intervention(s): Instruction in therapeutic exercise Patient completed right hip fracture protocol (ankle pump, quad set, gluteal set, heel slide, hip abd/add to neutral, short arc quad, long arc quad, hip adductor squeeze) x 12 reps with min amount of assist. Educated patient on posterior hip precautions. Patient recalls 3/3 hip precautions. Patient reports no change in pain. Patient set up with ice to surgical hip and elevated lower extremity as needed in recliner chair. Verbal and tactile cuing provided to breathe and maintain proper alignment. Therapeutic Activity (18748) Treatment Minutes: 4 0 units Skilled Intervention(s): Instructed patient in supine to sit pushing with upper extremities to sit up from flat bed. Patient moves very slowly and needed to sit at edge of bed with cues for breathing due to lightheadedness. Patient needed assistance to scoot closer to edge of bed. Education with use of cold pack and call light for pain management and for assistance. Gait Training (07433) Treatment Minutes: 11 1 unit Skilled Intervention(s): Instruction in sit to stand technique with proper hand placement and body positioning at edge of bed/chair, Instruction in stand to sit technique with LE's touching chair/bed and reaching back for surface. Instruction in sequencing, gait pattern and Instruction in correction of gait deviations. Patient ambulates with a very slow, antalgic, step to pattern. Cues for greater quad control in stance phase and for forward gaze. Close chair follow provided due to buckling of both knees. Pace is non functional. Total Timed Code Treatment Minutes: 27 Total Treatment Time (minutes): 27 SUBJECTIVE: Current Hospital Course: Chart reviewed and no significant medical updates relevant to therapy were noted Reason for Physical Therapy Consult : eval Relevant Past Medical History: recent hip fracture October 2019 s/p cannulated screw, carpal tunnel, neck pain Patient Report: voiced no new complaints. Home Environment Patient Lives With: Family(Son) Assistance Available: methods time analyst Entry To Home: No Stairs Number Of Stairs To Bed/Bath: 0 Tub/Shower Type: tub shower combo Equipment Owned: Wheeled Walker;Shower Chair Prior Functional Level: Within Functional Limits Prior Functional Level Comments: Pt independent IT SPECIALIST OBJECTIVE: CURRENT FUNCTIONAL STATUS: Current Functional Mobility Assist Level Additional Information Rolling Supine to Sit Moderate Assistance Sit to Supine Scooting Minimal Assistance Sit to Stand Minimal Assistance Stand to Sit Minimal Assistance Bed to Chair Toilet/Commode Gait Minimal Assistance Gait Device: Wheeled Walker Gait Distance (feet): 2 x 20ft Stairs Curb Step Car Transfer Gait Deviations Right Lower Extremity: Foot clearance decreased;Heel strike during initial stance decreased;Push off during terminal stance decreased;Stance time decreased;Step length decreased;Weight bearing decreased General Deviations/Observations: Antalgic gait;Tati decreased;Difficulty changing direction/turning;Flexed trunk posture;Narrow Base of Support;Non-functional gait speed;Shuffling Gait;Step length decreased;UE weight bearing on assistive device excessive JH-HLM: 6: Walk 10 steps or more Please see discipline specific clinical documentation flowsheet for complete details for this therapy evaluation/treatment. SIGNATURE: Saira Berry PTA PATIENT NAME: Velia Bagley DATE: January 20, 2020 TIME: 9:30 AM [facility] ALLIED HEALTHon 2020 ALLIED HEALTH HNO ID: [id number] Author: Jessica Morel (Chaplain) Service: Spiritual Care Author Type: Senior Security Analyst Type: Allied Health Filed: 2020 5:17 PM Note Text: SPIRITUAL CARE PROGRESS NOTE SERVICE DATE: 2020 SERVICE TIME: 2.30pm Senior Security Analyst visited patient on rounds as follow up. Patient expressed that he was feeling much better than last time (two days ago). He expressed some difficulty for his daughter finding the right facility upon discharge but is hopeful that one will be found that meets their qualifications. Senior Security Analyst provided prayer at pt request. Pt indicated thanks for visit and prayer. To contact the Spiritual Care Department: Please call [phone]. SIGNATURE: Chaplain Georgi PATIENT NAME: Velia Bagley DATE: 2020 TIME: 5:15 PM PAGER/CONTACT #: [phone] [facility] CASE MANAGEMon 2020 CASE MANAGEM HNO ID: [id number] Author: Caryl (Rn) BULL Minor Service: Care Management Author Type: Registered Nurse Type: Care Mgt Progress Note Filed: 2020 12:07 PM Note Text: CARE MANAGEMENT PROGRESS NOTE SERVICE DATE: 2020 SERVICE TIME: 1115 LOS: 3 days Provided patient snf choice list for area codes [address] and [address] Per his request emailed the snf list to his daugher at [email or web address] SIGNATURE: Caryl Minor RN PATIENT NAME: Velia Bagley DATE: 2020 TIME: 12:05 PM PAGER/CONTACT #: [phone] [facility] PROGRESSon 2020 PROGRESS HNO ID: [id number] Author: Jaskaran Mcdonnell MD Service: Hospital Medicine Author Type: Physician Type: Progress Notes Filed: 2020 6:45 PM Note Text: No active medical issues currently Hospital medicine will sign off [facility] PROGRESS HNO ID: [id number] Author: Sally De Leon Service: Orthopaedic Surgery Author Type: Resident Type: Progress Notes Filed: 2020 6:16 AM Note Text: ORTHOPAEDIC SURGERY DAILY PROGRESS NOTE ASSESMENT: POD # 3 S/P: R RONALD for FNFx non-union PLAN: -Pain Control -DVT Prophylaxis: Lovenox 40mg daily x 21 D -PT/OT: Full Weight Bearing, posterior precautions -Maintain aquacel dressing -D/C planning: per CM now will need SNF INTERVAL HPI: Patient monitored, no new events overnight. Patient states that they are comfortable. Well Controlled pain. Tolerating Diet. No N/V. OBJECTIVE: BP 116/78 Pulse 87 Temp 36.8 ?C (98.2 ?F) (Oral) Resp 18 Ht 177.8 cm (5' 10 ) Wt 99.8 kg (220 lb) SpO2 96% BMI 31.57 kg/m? Intake/Output Summary (Last 24 hours) 01/17 2300 - 01/18 0659 In: - Out: 400 [Urine:400] Exam: General: NAD Extremities: Right Lower Extremity: Dorsalis pedis pulses palpable. Posterior tibial pulses palpable. Dorsi flexion 5/5. Plantar flexion 5/5. Extensor hallucis extension: 5/5. Sensory intact to light touch DP/SP/Carroll/Sa/Tib. Dressing clean, dry and intact. Labs: Recent Labs 01/18/20 0456 01/17/20 0115 WBC 8.53 9.08* HB 10.9* 10.8* HCT 33.3* 33.8* PLT 173 186 NA 135* 139 K 4.2 4.9 CHLOR 107* 109* CO2 20* 22 CREAT 0.87 1.01 BUN 14 17 GLUC 98 135* CA 8.0* 8.3* Imaging: Post operative radiographs show acceptable alignment and position of implants SIGNATURE: Sally De Leon MD PATIENT NAME: Velia Bagley DATE: 01/19/20 TIME: 6:02 AM PAGER/CONTACT #: [phone] [facility] THERAPY NTon 2020 THERAPY NT HNO ID: [id number] Author: Willam (Marifer) Laurita Service: Physical Therapy Author Type: Filemaker Developer Type: Therapy (PT/OT/Speech/Resp) Filed: 2020 2:28 PM Note Text: -------- Attestation signed by Rosemarie Gutierrez at 2020 4:17 PM I reviewed and agree with the documentation corresponding to this therapy visit. SIGNATURE: Rosemarie Gutierrez PT DATE: 2020 TIME: 4:17 PM -------- Physical Therapy Treatment SERVICE DATE: 2020 SERVICE TIME: 1354 to 1418 ROOM: [id number] Recommended Discharge Disposition: Acute Rehab Justification For Post Acute Needs: Anticipate that patient will require daily (5x/wk) skilled therapy in a post-acute facility setting at the time of acute hospital discharge;Willing to participate;Good premorbid functional status;Anticipate patient will tolerate 3 hours of daily therapy at the time of admission to post-acute setting PT Recommendations to Nursing: Transfer to/from chair;OOB for Meals;With assist of 2 people Device: Wheeled Walker PT 6 Clicks Score: 13 Precautions/Activity Restrictions: Total Hip Replacement;Weight Bearing Restrictions;Fall Risk;Bed/Chair Alarm Isolation Type: None Extremity With Weight Bearing Restricted: Right Lower Extremity Right Lower Extremity Weight Bearing Status: WBAT Total Hip Replacement Precautions: Posterior ASSESSMENT : Patient presents with ongoing PT goals--patient with improved gait distances this session--patient slow moving, patient with chair follow for safety secondary to BLE buckling in the past. Patient continues to require increased levels of assist with all mobility tasks. continue to recommend acute care to improve strength, ROM, balance,endurance, normalized gait pattern, and independence with mobility tasks to prior level of function for safe return to home activity. Patient Disposition at Start of Session: Supine in Bed;Call [place] in Reach;Bed Alarm Patient Disposition at End of Session: Supine in Bed;Call [place] in Reach;Bed Alarm Tolerated Full Session Fatigue Physical Therapy Problem List: Pain;Safety Deficits;Impaired Self Care;Decreased Activity Tolerance;Decreased Strength;Functional Mobility Impairment;Balance Impaired;Decreased Range Of Motion;Cognitive Deficit Patient /Caregiver Goals: Walk;Care For Self Goals for Plan of Care: Able to perform HEP with: Verbal Cues Only Transfer supine to/from sit with: Minimal Assistance Transfer sit to/from stand with: Contact Guard Assistance Ambulate with: Contact Guard Assistance Distance: 30 ft Device: Wheeled Walker Goal: recall 3/3 posterior hip precautions and maintain with mobility Progress Toward Goals: Progressing as expected Due To: fatigue Rehab Potential: Good PLAN: Treatment Frequency (times per week): BID Current admission Treatment Interventions: Education;Joint Mobility;Strengthening;F unctional Mobility Training;Balance Training;Neuromuscular Re-education Plan of Care developed with: Patient Additional personnel present during visit: Bette Gutierrez TREATMENT INTERVENTIONS: Therapy Diagnosis: Reduced mobility-other Interventions Provided: Therapeutic Activity (37194);Gait Training (34671) Therapeutic Activity (61497) Treatment Minutes: 8 1 unit Skilled Intervention(s): Instructed patient in supine to and from sit pushing with upper extremities to sit up--cuing for proper UE support, LE movement, pivoting on bottom, patient using trapeze for transfer out of bed--manual assist for trunk and LEs. Back to supine--cuing for proper scooting, LE movements, trunk control, manual assist for trunk and RLE. Instruction in sit to and from stand technique with proper hand placement and body positioning at edge of bed/chair--cuing for proper scooting, proximity to seated surfaces, sliding RLE out to maintain proper hip precautions, Cuing for controlled movements. Patient educated on hip precautions prior to mobility, recall of 3/3. Gait Training (32080) Treatment Minutes: 16 1 unit Skilled Intervention(s): Instruction in sit to stand technique with proper hand placement and body positioning at edge of bed/chair, Instruction in stand to sit technique with LE's touching chair/bed and reaching back for surface, Instruction in sequencing, gait pattern and Instruction in correction of gait deviations--cuing and assist for proper weight shifts, heel strike, reciprocal stepping, walker management, proper posture, picking up feet with turning, and breathing. Slow tati, occasional stopping/freezing up during stepping, cuing needed to keep stepping. Total Timed Code Treatment Minutes: 24 Total Treatment Time (minutes): 24 SUBJECTIVE: Current Hospital Course: Chart reviewed and no significant medical updates relevant to therapy were noted Reason for Physical Therapy Consult : eval Relevant Past Medical History: recent hip fracture October 2019 s/p cannulated screw, carpal tunnel, neck pain Patient Report: patient stated feeling good, stated lunch was not great. Home Environment Patient Lives With: Family(Son) Assistance Available: methods time analyst Entry To Home: No Stairs Number Of Stairs To Bed/Bath: 0 Tub/Shower Type: tub shower combo Equipment Owned: Wheeled Walker;Shower Chair Prior Functional Level: Within Functional Limits Prior Functional Level Comments: Pt independent IT SPECIALIST OBJECTIVE: CURRENT FUNCTIONAL STATUS: mobility performed during session in bold, other mobility completed during prior session and may no longer be correct or appropriate to complete. Current Functional Mobility Assist Level Additional Information Rolling Supine to Sit Moderate Assistance Sit to Supine Moderate Assistance Scooting Minimal Assistance Sit to Stand Minimal Assistance Stand to Sit Minimal Assistance Bed to Chair Moderate Assistance Bed To Chair Transfer Type: Stand Pivot Bed To Chair Transfer Equipment: Gait Belt;Wheeled Walker Toilet/Commode Gait Minimal Assistance Gait Device: Wheeled Walker Gait Distance (feet): 20'x2 Stairs Curb Step Car Transfer Gait Deviations Right Lower Extremity: Foot clearance decreased;Heel strike during initial stance decreased;Push off during terminal stance decreased;Stance time decreased;Step length decreased;Weight bearing decreased General Deviations/Observations: Antalgic gait;Tati decreased;Difficulty changing direction/turning;Flexed trunk posture;Narrow Base of Support;Non-functional gait speed;Shuffling Gait;Step length decreased;UE weight bearing on assistive device excessive Balance: Static Sitting;Dynamic Sitting;Static Standing;Dynamic Standing Static Sitting Balance: Fair Patient able to maintain balance with handhold support, may require occasional minimal assistance Dynamic Sitting Balance: Fair Patient accepts minimal challenge, able to maintain balance while turning head/trunk Static Standing Balance: Fair Patient able to maintain balance with handhold support, may require occasional minimal assistance Dynamic Standing Balance: Poor Patient unable to accept challenge or move without loss of balance JH-HLM: 7: Walk 25 feet or more Please see discipline specific clinical documentation flowsheet for complete details for this therapy evaluation/treatment. SIGNATURE: Willam Shay PTA PATIENT NAME: Velia Bagley DATE: 2020 TIME: 2:22 PM [facility] THERAPY NT HNO ID: [id number] Author: Arielle Oswald/Fiorella Anne Service: Occupational Therapy Author Type: Occupational Therapist Type: Therapy (PT/OT/Speech/Resp) Filed: 2020 10:56 AM Note Text: Occupational Therapy Treatment SERVICE DATE: 2020 SERVICE TIME: 1022 to 1045 ROOM: [place] [address] Recommended Discharge Disposition: Acute Rehab Recommended Discharge Disposition Comments: Acute rehab to maximize independence with functional mobility and ADLs; return to baseline of functioning Justification For Post Acute Needs: Anticipate patient will tolerate 3 hours of daily therapy at the time of admission to post-acute setting;Willing to participate;Motivated OT Recommendations to Nursing: With assist of 2 people;Bedside Commode for Toileting;Edge of bed ADL?s OT 6 Clicks Score: 15 Precautions/Activity Restrictions: Total Hip Replacement;Weight Bearing Restrictions;Fall Risk;Bed/Chair Alarm Isolation Type: None Extremity With Weight Bearing Restricted: Right Lower Extremity Right Lower Extremity Weight Bearing Status: WBAT Total Hip Replacement Precautions: Posterior ASSESSMENT: Patient continues to make slow progress towards stated goals. Is limited by unstable lower extremities with transfers and fatigue, impacting his ability to safely care for self. Continue to recommend acute rehab at discharge to maximize independence with ADLs. Patient Disposition at Start of Session: Supine in Bed;Call [place] in Reach;Bed Alarm Patient Disposition at End of Session: OOB in Chair;Call [place] in Reach;Chair Alarm Tolerated Full Session Without limitations Occupational Therapy Problem List: Decreased Activity Tolerance;Functional Mobility Impairment;Impaired Self Care Patient /Caregiver Goals: Go To Rehab Goals for Plan of Care: Grooming with: Set Up Upper Body Bathing with: Set Up Upper Body Dressing with: Set Up Lower Body Bathing with: Moderate Assistance Lower Body Dressing with: Moderate Assistance Chair Transfer with: Minimal Assistance Toilet Transfer with: Minimal Assistance Tolerate (minutes of functional activity): 10 Functional Activity with: Minimal Assistance Additional Goal 1: Patient will complete lower body dressing with use of AE with verbal cues only Additional Goal 2: Patient will verbalize posterior hip precautions with 100% acurracy Progress Toward Goals: Progressing as expected Rehab Potential: Good PLAN: Treatment Frequency (times per week): 5(1-5) Current admission Treatment Interventions: Self Care / Home Management;Functional Mobility Training Plan of Care developed with: Patient TREATMENT INTERVENTIONS: Therapy Diagnosis: Reduced mobility-other;Decreased activities of daily living (ADL) Interventions Provided: Self Retirement Management (67300) Self Retirement Management (28616) Treatment Minutes: 23 2 units Skilled Intervention(s): Reviewed and spent increased time discussing post op precautions, posterior precautions. Discussed applying precautions during lower body dressing tasks and bed mobility. Requires reinforcement during bed mobility. Completed sit/stand transfer with verbal and tactile cues for safety, hand placement on bed and wheeled walker. Completed transfer to chair with close fall guard assist due to unsteady bilateral lower extremities. Encouraged to reach back to chair and extend surgical leg prior to sit. Pt reports fatigue following transfer. Education provided on incorporating rest breaks into activities as needed to maximize overall activity tolerance. Education provided for transferring to commode, hand placement, extending surgical leg and reaching back to handles on commode. Up in chair at end of session. Currently defers lower body dressing task, will continue to attempt next session. Total Timed Code Treatment Minutes: 23 Total Treatment Time (minutes): 23 SUBJECTIVE: Current Hospital Course: Chart reviewed and no significant medical updates relevant to therapy were noted Reason for Occupational Therapy Consult: R RONALD Relevant Past Medical History: recent hip fracture October 2019 s/p cannulated screw, carpal tunnel, neck pain Patient Report: Pt up in bed upon arrival, agreeable to OT session. Reports feeling 'tired', but agreeable to out of bed. Pain 6/10 with movement, better at rest. Home Environment Patient Lives With: Family(Son) Assistance Available: methods time analyst Entry To Home: No Stairs Number Of Stairs To Bed/Bath: 0 Tub/Shower Type: tub shower combo Equipment Owned: Wheeled Walker;Shower Chair Prior Functional Level: Within Functional Limits Prior Functional Level Comments: Pt independent IT SPECIALIST OBJECTIVE: Cognition/Communication Deficits Responsiveness: Alert Follows Commands: 2-step Commands;Cueing Needed Cueing to Follow Commands: Minimum Executive Function Deficits: Safety Awareness;Motor Planning Motor Planning Deficit: Minimal impairment Safety Awareness Deficit: Minimal impairment CURRENT FUNCTIONAL STATUS: Current Activities of Daily Living Assist Level Feeding Set Up Grooming Minimal Assistance Bathing Upper Body Minimal Assistance Bathing Lower Body Maximal Assistance Dressing Upper Body Minimal Assistance Dressing Lower Body Maximal Assistance Toileting Moderate Assistance Functional Mobility Assist Level Rolling Supine to Sit Moderate Assistance Sit to Supine Moderate Assistance Scooting Minimal Assistance Sit to Stand Moderate Assistance Stand to Sit Moderate Assistance Bed to Chair Toilet/Commode Functional Mobility Moderate Assistance Wheeled Walker Functional Mobility Comments: Significant fall guarding d/t unsteady gait and buckling throughout; slow gait Balance: Static Sitting;Dynamic Standing Static Sitting Balance: Fair Patient able to maintain balance with handhold support, may require occasional minimal assistance Dynamic Standing Balance: Poor Patient unable to accept challenge or move without loss of balance Activity Tolerance: Standing Activity Standing Activity: Functional mobility from bed to chair Standing Activity Tolerance (in minutes): 4 Please see discipline specific clinical documentation flowsheet for complete details for this therapy evaluation/treatment. SIGNATURE: YAEL Ly/Matt PATIENT NAME: Velia Bagley DATE: 2020 TIME: 10:48 AM [facility] THERAPY NT HNO ID: [id number] Author: Willam Kruse) Laurita Service: Physical Therapy Author Type: Filemaker Developer Type: Therapy (PT/OT/Speech/Resp) Filed: 2020 10:03 AM Note Text: -------- Attestation signed by Rosemarie HarperPtVibha Gutierrez at 2020 11:45 AM I reviewed and agree with the documentation corresponding to this therapy visit. SIGNATURE: Rosemarie Gutierrez PT DATE: 2020 TIME: 11:45 AM -------- Physical Therapy Treatment SERVICE DATE: 2020 SERVICE TIME: 933 to 956 ROOM: [place] [address] Recommended Discharge Disposition: Acute Rehab Justification For Post Acute Needs: Anticipate that patient will require daily (5x/wk) skilled therapy in a post-acute facility setting at the time of acute hospital discharge;Willing to participate;Good premorbid functional status;Anticipate patient will tolerate 3 hours of daily therapy at the time of admission to post-acute setting PT Recommendations to Nursing: Transfer to/from chair;OOB for Meals;With assist of 2 people Device: Wheeled Walker PT 6 Clicks Score: 11 Precautions/Activity Restrictions: Total Hip Replacement;Weight Bearing Restrictions;Fall Risk;Bed/Chair Alarm Isolation Type: None Extremity With Weight Bearing Restricted: Right Lower Extremity Right Lower Extremity Weight Bearing Status: WBAT Total Hip Replacement Precautions: Posterior ASSESSMENT : Patient presents with ongoing PT goals--patient therapy focused on LE strengthening in bed--patient did not want to get out of bed until straight cath for bladder was performed (nursing in room at end of session)--will follow up latera today to focused on transfer and gait training tasks. Patient Disposition at Start of Session: Supine in Bed;Call [place] in Reach Patient Disposition at End of Session: Supine in Bed;Call [place] in Reach;Nursing Personnel Present Tolerated Full Session Fatigue Physical Therapy Problem List: Pain;Safety Deficits;Impaired Self Care;Decreased Activity Tolerance;Decreased Strength;Functional Mobility Impairment;Balance Impaired;Decreased Range Of Motion;Cognitive Deficit Patient /Caregiver Goals: Walk;Care For Self Goals for Plan of Care: Able to perform HEP with: Verbal Cues Only Transfer supine to/from sit with: Minimal Assistance Transfer sit to/from stand with: Contact Guard Assistance Ambulate with: Contact Guard Assistance Distance: 30 ft Device: Wheeled Walker Goal: recall 3/3 posterior hip precautions and maintain with mobility Progress Toward Goals: Progressing slower than expected Due To: fatigue Rehab Potential: Good PLAN: Treatment Frequency (times per week): BID Current admission Treatment Interventions: Education;Joint Mobility;Strengthening;F unctional Mobility Training;Balance Training;Neuromuscular Re-education Plan of Care developed with: Patient Additional personnel present during visit: Bette Gutierrez TREATMENT INTERVENTIONS: Therapy Diagnosis: Reduced mobility-other Interventions Provided: Therapeutic Exercise (32032) Therapeutic Exercise (93217) Treatment Minutes: 23 2 units Skilled Intervention(s): Patient completed bilateral LE strengthening (ankle pump, quad set, gluteal set, heel slide, hip abd/add to neutral, short arc quad,SLR on LLE only, hip adductor squeeze) 2x15 reps with moderate amount of assist on RLE. Cuing and assist for proper LE alignment and ROM to maximize strengthening. Educated patient on right posterior hip precautions. Patient recalls 2/3 hip precautions--further training needed for proper teach back. Patient set up with ice to surgical hip and elevated lower extremity as needed. Total Timed Code Treatment Minutes: 23 Total Treatment Time (minutes): 23 SUBJECTIVE: Current Hospital Course: Chart reviewed and no significant medical updates relevant to therapy were noted Reason for Physical Therapy Consult : eval Relevant Past Medical History: recent hip fracture October 2019 s/p cannulated screw, carpal tunnel, neck pain Patient Report: patient stated sleeping good last night. Home Environment Patient Lives With: Family(Son) Assistance Available: methods time analyst Entry To Home: No Stairs Number Of Stairs To Bed/Bath: 0 Tub/Shower Type: tub shower combo Equipment Owned: Wheeled Walker;Shower Chair Prior Functional Level: Within Functional Limits Prior Functional Level Comments: Pt independent IT SPECIALIST OBJECTIVE: CURRENT FUNCTIONAL STATUS: mobility performed during session in bold, other mobility completed during prior session and may no longer be correct or appropriate to complete. Current Functional Mobility Assist Level Additional Information Rolling Supine to Sit Maximal Assistance(x2) Sit to Supine Maximal Assistance(x2) Scooting Maximal Assistance Sit to Stand Moderate Assistance Stand to Sit Maximal Assistance(secondary to knee buckling) Bed to Chair Moderate Assistance Bed To Chair Transfer Type: Stand Pivot Bed To Chair Transfer Equipment: Gait Belt;Wheeled Walker Toilet/Commode Gait Moderate Assistance Gait Device: Wheeled Walker Gait Distance (feet): 10' Stairs Curb Step Car Transfer JH-HLM: 2: Bed activities / dependent transfer Please see discipline specific clinical documentation flowsheet for complete details for this therapy evaluation/treatment. SIGNATURE: Willam Shay PTA PATIENT NAME: Velia Bagley DATE: 2020 TIME: 9:58 AM Normal [facility] ALLIED HEALTHon 01-18-2020 ALLIED HEALTH HNO ID: [id number] Author: Jo (Rn) Giovana Service: Nursing Author Type: Registered Nurse Type: Allied Health Filed: 01/18/2020 8:20 AM Note Text: ANCILLARY ORTHOPEDIC RESERVE OFFICER PROGRESS NOTE SERVICE DATE: 01/18/2020 SERVICE TIME: 0800 Spoke to patient at bedside, he is doing ok, pain managed. [facility] has accepted patient, await insurance authorization. I will continue to follow. SIGNATURE: Jo Cruz RN PATIENT NAME: Velia Bagley DATE: January 18, 2020 TIME: 8:19 AM PAGER/CONTACT #: [phone] Normal [facility] Basic Metabolic Panelon 01-02 Anion gap [Moles/Vol] 8 mmol/L Low 9-18 [facility] Comment on above: Performed By: #### B MP #### [address] [address] Calcium [Mass/Vol] 8.0 mg/dL Low 8.5-10.2 [facility] Comment on above: Performed By: #### B MP #### [address] [address] Chloride [Moles/Vol] 107 mmol/L High 97-105 [facility] Comment on above: Performed By: #### B MP #### [facility] [address] [place], [place] [address] CO2 Blood 20 mmol/L Low 22-30 [facility] Comment on above: Performed By: #### B MP #### [facility] [address] [place], [place] [address] Creatinine [Mass/Vol] 0.87 mg/dL Normal 0.73-1.22 [facility] Comment on above: Performed By: #### B MP #### [facility] [address] [place], [place] [address] Glucose [Mass/Vol] 98 mg/dL Normal 74-99 [facility] Comment on above: Result Comment: The [place] [employer] (ADA) provides guidance for cutoff values for fasting glucose and random glucose. The ADA defines fasting as no caloric intake for at least 8 hours.Fasting plasma glucose results between 100 to 125 mg/dL indicate increased risk for diabetes (prediabetes). Fasting plasma glucose results greater than or equal to 126 mg/dL meet the criteria for diagnosis of diabetes. In the absence of unequivocal hyperglycemia, results should be confirmed by repeat testing. In a patient with classic symptoms of hyperglycemia or hyperglycemic crisis, random plasma glucose results greater than or equal to 200 mg/dL meet the criteria for diagnosis of diabetes. Reference: Standards of Medical Care in Diabetes 2016; [place] [employer]. Diabetes Care. 2016;39(Suppl 1). Performed By: #### B MP #### [facility] [address] [place], [place] [address] Potassium [Moles/Vol] 4.2 mmol/L Normal 3.7-5.1 [facility] Comment on above: Performed By: #### B MP #### [facility] [address] [place], [place] [address] Sodium [Moles/Vol] 135 mmol/L Low 136-144 [facility] Comment on above: Performed By: #### B MP #### [facility] [address] [place], [place] [address] Urea nitrogen [Mass/Vol] 14 mg/dL Normal 9-24 [facility] Comment on above: Performed By: #### B MP #### [place] [address] CASE MANAGEMon 01-18-2020 CASE MANAGEM HNO ID: [id number] Author: Caryl Batres) BULL Minor Service: Care Management Author Type: Registered Nurse Type: Care Mgt Progress Note Filed: 01/18/2020 5:00 PM Note Text: CARE MANAGEMENT PROGRESS NOTE SERVICE DATE: 01/18/2020 SERVICE TIME: 8 LOS: 2 days Received phone call that insurance denies acute rehab; insurance feels care can be provided at a lower level such as snf. Peer-peer can be done within 3 days by calling [phone] Ref [id number] Discussed with patient and provided snf. Will follow up tomorrow morning for choices SIGNATURE: Caryl Minor RN PATIENT NAME: Velia Bagley DATE: January 18, 2020 TIME: 4:58 PM PAGER/CONTACT #: [phone] Normal [facility] CASE MGT INIT ASSES 2019 CASE MGT INIT [facility] HNO ID: [id number] Author: Cortney Vasquez (Sw) Service: ? Author Type: Insulation Cupola Charger Type: Care Mgt Initial Assessment Filed: 01/18/2020 4:31 PM Note Text: CARE MANAGEMENT: ASSESSMENT AND DISCHARGE PLAN SERVICE DATE: January 18, 2020 SERVICE TIME: 4:30 PM PRIMARY CARE PHYSICIAN: Rachel Rayo MD ADMISSION STATUS: Inpatient Needs Prior to Discharge: Facility or Agency Choices;Insurance Authorization;OT/PT Evaluation [facility] Patient/Public Health Doctor Stated Goals: To have reduction in pain;To have reduction in symptoms Health Insurance: [place] [facility] Issues Impacting Discharge Plan: None Last Discharge Date: 10/20/19 Is this Within the Past 30 days? Last discharge within 30 days: No Advance Directive: Current Advance Directive: None Line Out Worker Attempted to Assist with AD Completion: Yes Action: Education Provided Health LiteracyHow often do you need to have someone help you when you read instructions, pamphlets, or other written material from your doctor or pharmacy? : 1 - Never How confident are you filling out medical forms by yourself?: 1 - Extremely Baseline Mental Status Prior to this Illness what was the patient's Baseline Mental Status?: Alert AND Oriented Prior to this illness, has anyone described the patient having any of the following behaviors?: Not Applicable Relationship of the informant to the patient:: Self Does Patient Currently Receive Any Community Services or Home Care?: Psychiatry Equipment Prior to Admission: None SOCIAL: Living Arrangements: Home Lives With: Daughter Financial Resources: Not ApplicablePrimary Contact: Extended Emergency Contact Information Primary Emergency Contact: Teri Bagley Relation: Daughter Secondary Emergency Contact: Adams Bagley Mobile Relation: Son Supportive Patient Contact:: Yes Contact Resources: Family Social Needs Food insecurity Worry: Never true Inability: Never true Resources Needed: No Social Needs Financial resource strain: Not hard at all Social Needs Transportation needs Medical: No Non-medical: No Caregiver AssessmentCaregiver is ready, willing and able to meet the patient's needs as recommended by the inter-professional team:: Yes Patient's perception of need for this admission: hip surgery Medication Adherance I am convinced of the importance of my prescription medication: 0 - Agree Completely I worry that my prescription medication will do more harm than good to me : 0 - Disagree Completely I feel financially burdened by my [id number] expenses for my prescription medication:: 0 - Disagree Completely Risk Score: 0 Patient is categorized as: Low risk < 2 Are you interested in bedside delivery of your medications? No Is Patient Psychosocially Complex?: No ASSESSMENT AND PLAN: Medical Needs: Psychosocial Needs: Psychosocial Needs: None FREEDOM OF CHOICE EXPLAINED: POTENTIAL TRANSITION PLANS Rehab Facility Reviewed Epic. Patient is IND+PCP+RX. Patient will discharge to [facility] per his request. Will continue to follow for further discharge planning. SIGNATURE: KRISTINA Snider PATIENT NAME: Velia Bagley DATE: January 18, 2020 TIME: 4:30 PM PAGER/CONTACT #: [phone] Normal [facility] Hemogram/Diffon 01-18-2020 Abs Immature Grans 0.07 thou/cmm High 0.00-0.05 [facility] Comment on above: Performed By: #### R COVD #### [place] [address] Abs Neut (ANC) 6.30 thou/cmm High 1.78-5.38 [facility] Comment on above: Performed By: #### R COVD #### [facility] [address] [place] [address] Abs. Baso 0.02 thou/cmm Normal 0.01-0.08 [facility] Comment on above: Performed By: #### R COVD #### [facility] [address] [place] [address] Abs. [place] 0.87 thou/cmm High 0.30-0.82 [facility] Comment on above: Performed By: #### R COVD #### [place] [address] Basophils/100 WBC (Bld) 0.2 % Normal [facility] Comment on above: Performed By: #### R COVD #### [place] [address] Eosinophils (Bld) [#/Vol] 0.00 thou/cmm Low 0.04-0.54 [facility] Comment on above: Performed By: #### R COVD #### [place] [address] Eosinophils/100 WBC (Bld) 0.0 % Normal [facility] Comment on above: Performed By: #### R COVD #### [place] [address] Erythrocyte distribution width (RBC) [Ratio] 15.9 % High 11.6-14.4 [facility] Comment on above: Performed By: #### R COVD #### [facility] [address] [place] [address] Hematocrit (Bld) [Volume fraction] 33.3 % Low 40.1-51.0 [facility] Comment on above: Performed By: #### R COVD #### [facility] [address] [place] [address] Hemoglobin (Bld) [Mass/Vol] 10.9 g/dL Low 13.7-17.5 [facility] Comment on above: Performed By: #### R COVD #### [facility] [address] [place] [address] Immature Grans 0.80 % Normal [facility] Comment on above: Performed By: #### R COVD #### [facility] [address] [place] [address] Lymphocytes (Bld) [#/Vol] 1.28 thou/cmm Normal 0.84-2.85 [facility] Comment on above: Performed By: #### R COVD #### [facility] [address] [place] [address] Lymphocytes/100 WBC (Bld) 15.0 % Normal [facility] Comment on above: Performed By: #### R COVD #### [facility] [address] [place] [address] MCH (RBC) [Entitic mass] 30.2 pg Normal 25.7-32.2 [facility] Comment on above: Performed By: #### R COVD #### [facility] [address] [place] [address] MCHC (RBC) [Mass/Vol] 32.7 % Normal 32.3-36.5 [facility] Comment on above: Performed By: #### R COVD #### [facility] [address] [place] [address] MCV (RBC) [Entitic vol] 92.2 fL Normal 83.2-95.6 [facility] Comment on above: Performed By: #### R COVD #### [facility] [address] [place] [address] Monocytes/100 WBC (Bld) 10.2 % Normal [facility] Comment on above: Performed By: #### R COVD #### [facility] [address] [place] [address] Platelet mean volume (Bld) [Entitic vol] 9.2 fL Normal 8.7-12.0 [facility] Comment on above: Performed By: #### R COVD #### [facility] [address] [place] [address] Platelets (Bld) [#/Vol] 173 thou/cmm Normal 141-365 [facility] Comment on above: Performed By: #### R COVD #### [facility] [address] [place] [address] RBC (Bld) [#/Vol] 3.61 mil/cmm Low 4.63-6.08 [facility] Comment on above: Performed By: #### R COVD #### [facility] [address] [place] [address] RDW SD 53.6 fl High 36.1-45.8 [facility] Comment on above: Performed By: #### R COVD #### [facility] [address] [place] [address] Seg Neutrophil 73.8 % Normal [facility] Comment on above: Performed By: #### R COVD #### [facility] [address] [place] [address] WBC (Bld) [#/Vol] 8.53 thou/cmm Normal 4.23-9.07 [facility] Comment on above: Performed By: #### R COVD #### [facility] [address] [place] [address] MDRD GFRon 01-18-2020 GFR/1.73 sq M predicted among non-blacks MDRD (S/P/Bld) [Vol rate/Area] mL/min/{1.73_m2} Normal >60mL/min/1. 73m2 [facility] Comment on above: Result Comment: If t he patient is , multiply the result by 1.210. Performed By: #### B MP #### [facility] [address] [place] [address] PROGRESSon 01-18-2020 PROGRESS HNO ID: [id number] Author: Hiral Castaneda Service: Orthopaedic Surgery Author Type: Physician Type: Progress Notes Filed: 01/18/2020 12:16 PM Note Text: I evaluated the patient and personally participated in the antonio components. I agree with the resident's findings and plan as documented and have discussed the case and management of the patient's care with the resident. Signature: Hiral Castaneda MD Service Date: 01/18/2020 Service Time: 12:16 PM ORTHOPAEDIC SURGERY DAILY PROGRESS NOTE ASSESMENT: POD # 2 S/P: R RONALD for FNFx non-union PLAN: -Pain Control -DVT Prophylaxis: Lovenox 40mg daily x 21 D -PT/OT: Full Weight Bearing, posterior precautions -Guthrie: none -Post-op Abx: clinda x 2 doses complete -Maintain aquacel dressing -D/C planning: acute rehab when bed available INTERVAL HPI: Patient monitored, no new events overnight. Patient states that they are comfortable. Well Controlled pain. Tolerating Diet. No N/V. OBJECTIVE: BP 105/73 Pulse 105 Temp 37.4 ?C (99.3 ?F) (Oral) Resp 18 Ht 177.8 cm (5' 10 ) Wt 99.8 kg (220 lb) SpO2 95% BMI 31.57 kg/m? Intake/Output Summary (Last 24 hours) No intake/output data recorded. Exam: General: NAD Extremities: Right Lower Extremity: Dorsalis pedis pulses palpable. Posterior tibial pulses palpable. Dorsi flexion 5/5. Plantar flexion 5/5. Extensor hallucis extension: 5/5. Sensory intact to light touch DP/SP/Carroll/Sa/Tib. Dressing clean, dry and intact. Labs: Recent Labs 01/18/20 0456 01/17/20 0115 WBC 8.53 9.08* HB 10.9* 10.8* HCT 33.3* 33.8* PLT 173 186 NA -- 139 K -- 4.9 CHLOR -- 109* CO2 -- 22 CREAT -- 1.01 BUN -- 17 GLUC -- 135* CA -- 8.3* Imaging: Post operative radiographs show acceptable alignment and position of implants SIGNATURE: Sally De Leon MD PATIENT NAME: Velia Bagley DATE: 01/18/20 TIME: 6:02 AM PAGER/CONTACT #: [phone] Normal [facility] THERAPY NTon 01-18-2020 THERAPY NT HNO ID: [id number] Author: Taylor Pennington OT Service: Occupational Therapy Author Type: Occupational Therapist Type: Therapy (PT/OT/Speech/Resp) Filed: 01/18/2020 3:55 PM Note Text: OCCUPATIONAL THERAPY MISSED VISIT SERVICE DATE: 01/18/2020 SERVICE TIME: 1510 to 1511 ROOM: [place] [address] Attempted Treatment. Patient not seen due to Sleeping. Unable to wake patient to participate in therapy; will re-attempt. SIGNATURE: Taylor Pennington OT/Matt PATIENT NAME: Velia Bagley DATE: January 18, 2020 TIME: 3:54 PM Normal [facility] THERAPY NT HNO ID: [id number] Author: Willam Kurse) Laurita Service: Physical Therapy Author Type: Filemaker Developer Type: Therapy (PT/OT/Speech/Resp) Filed: 01/18/2020 2:15 PM Note Text: -------- Attestation signed by Rosemarie Gutierrez at 01/18/2020 4:00 PM I reviewed and agree with the documentation corresponding to this therapy visit. SIGNATURE: Rosemarie Gutierrez PT DATE: January 18, 2020 TIME: 4:00 PM -------- Physical Therapy Treatment SERVICE DATE: 01/18/2020 SERVICE TIME: 1333 to 1400 ROOM: [place] [address] Recommended Discharge Disposition: Acute Rehab Justification For Post Acute Needs: Anticipate that patient will require daily (5x/wk) skilled therapy in a post-acute facility setting at the time of acute hospital discharge;Willing to participate;Good premorbid functional status;Anticipate patient will tolerate 3 hours of daily therapy at the time of admission to post-acute setting PT Recommendations to Nursing: Transfer to/from chair;OOB for Meals;With assist of 2 people Device: Wheeled Walker PT 6 Clicks Score: 11 Precautions/Activity Restrictions: Total Hip Replacement;Weight Bearing Restrictions;Fall Risk;Bed/Chair Alarm Isolation Type: None Extremity With Weight Bearing Restricted: Right Lower Extremity Right Lower Extremity Weight Bearing Status: WBAT Total Hip Replacement Precautions: Posterior ASSESSMENT : Patient presents with ongoing PT goals--patient with improved gait distances this session, patient with bilateral knee buckling at end of walker just prior to sitting down at edge of bed--patient assisted with use of gait belt to maintain standing, assisted patient to sitting at edge of bed. Patient continues to be well below baseline functioning at this time. continue to recommend acute care to improve strength, ROM, balance,endurance, normalized gait pattern, and independence with mobility tasks to prior level of function for safe return to home activity. Patient Disposition at Start of Session: Supine in Bed;Call [place] in Reach Patient Disposition at End of Session: Supine in Bed;Call [place] in Reach;Bed Alarm;SCDs Tolerance Limited By Fatigue Physical Therapy Problem List: Pain;Safety Deficits;Impaired Self Care;Decreased Activity Tolerance;Decreased Strength;Functional Mobility Impairment;Balance Impaired;Decreased Range Of Motion;Cognitive Deficit Patient /Caregiver Goals: Walk;Care For Self Goals for Plan of Care: Able to perform HEP with: Verbal Cues Only Transfer supine to/from sit with: Minimal Assistance Transfer sit to/from stand with: Contact Guard Assistance Ambulate with: Contact Guard Assistance Distance: 30 ft Device: Wheeled Walker Goal: recall 3/3 posterior hip precautions and maintain with mobility Progress Toward Goals: Progressing slower than expected Due To: fatigue Rehab Potential: Good PLAN: Treatment Frequency (times per week): BID Current admission Treatment Interventions: Education;Joint Mobility;Strengthening;F unctional Mobility Training;Balance Training;Neuromuscular Re-education Plan of Care developed with: Patient Additional personnel present during visit: Bette Gutierrez TREATMENT INTERVENTIONS: Therapy Diagnosis: Reduced mobility-other Interventions Provided: Therapeutic Exercise (10549);Therapeutic Activity (19551);Gait Training (72200) Therapeutic Exercise (25544) Treatment Minutes: 11 1 unit Skilled Intervention(s): Patient completed right total hip arthroplasty protocol (ankle pump, quad set, gluteal set, heel slide, hip abd/add to neutral, short arc quad, long arc quad, hip adductor squeeze) x 15 reps with minimal to moderate amount of assist. Cuing and assist for proper LE alignment and ROM to maximize strengthening Educated patient on right posterior hip precautions. Patient recalls 3/3 hip precautions--patient may have been reading from dry ividence board,further review needed for proper teach back. Patient set up with ice to surgical hip and elevated lower extremity as needed. Therapeutic Activity (28611) Treatment Minutes: 6 0 units Skilled Intervention(s): Instructed patient in supine to sit pushing with upper extremities to sit up--manual assist for 2 for long sit pivot transfer--cuing for proper scooting, UE support use of trapeze as needed. Instruction in sit to and from stand technique with proper hand placement and body positioning at edge of bed/chair--cuing and assist for proper scooting, UE support, sliding RLE out to maintain 90 degree hip precaution, proper powering up with LEs to come to standing. Cuing for proper proximity to seated surfaces, UE support controlled movements-- Gait Training (87349) Treatment Minutes: 10 1 unit Skilled Intervention(s): Instruction in sit to stand technique with proper hand placement and body positioning at edge of bed/chair, Instruction in stand to sit technique with LE's touching chair/bed and reaching back for surface, Instruction in sequencing, gait pattern and Instruction in correction of gait deviations--cuing and assist for weight shifts, walker management, heel strike, step length, posture, cuing to keep stepping secondary to patient freezing up--patient with buckling at end of walk when getting ready to sit at edge of bed--use of gait belt to keep patient standing then to slowly lower to bed for sitting. Total Timed Code Treatment Minutes: 27 Total Treatment Time (minutes): 27 SUBJECTIVE: Current Hospital Course: Chart reviewed and no significant medical updates relevant to therapy were noted Reason for Physical Therapy Consult : eval Relevant Past Medical History: recent hip fracture October 2019 s/p cannulated screw, carpal tunnel, neck pain Patient Report: patient denies dizziness. Home Environment Patient Lives With: Family(Son) Assistance Available: methods time analyst Entry To Home: No Stairs Number Of Stairs To Bed/Bath: 0 Tub/Shower Type: tub shower combo Equipment Owned: Wheeled Walker;Shower Chair Prior Functional Level: Within Functional Limits Prior Functional Level Comments: Pt independent IT SPECIALIST OBJECTIVE: CURRENT FUNCTIONAL STATUS: mobility performed during session in bold, other mobility completed during prior session and may no longer be correct or appropriate to complete. Current Functional Mobility Assist Level Additional Information Rolling Supine to Sit Maximal Assistance(x2) Sit to Supine Maximal Assistance(x2) Scooting Maximal Assistance Sit to Stand Moderate Assistance Stand to Sit Maximal Assistance(secondary to knee buckling) Bed to Chair Moderate Assistance Bed To Chair Transfer Type: Stand Pivot Bed To Chair Transfer Equipment: Gait Belt;Wheeled Walker Toilet/Commode Gait Moderate Assistance Gait Device: Wheeled Walker Gait Distance (feet): 10' Stairs Curb Step Car Transfer Gait Deviations Right Lower Extremity: Foot clearance decreased;Heel strike during initial stance decreased;Push off during terminal stance decreased;Stance time decreased;Step length decreased;Weight bearing decreased General Deviations/Observations: Antalgic gait;Tati decreased;Difficulty changing direction/turning;Flexed trunk posture;Narrow Base of Support;Non-functional gait speed;Step length decreased;UE weight bearing on assistive device excessive(bilateral knee buckling at end of walk) Balance: Static Sitting;Dynamic Sitting;Static Standing;Dynamic Standing Static Sitting Balance: Fair Patient able to maintain balance with handhold support, may require occasional minimal assistance Dynamic Sitting Balance: Fair Patient accepts minimal challenge, able to maintain balance while turning head/trunk Static Standing Balance: Poor Patient requires handhold support and moderate to maximal assistance to maintain position Dynamic Standing Balance: Poor Patient unable to accept challenge or move without loss of balance JH-HLM: 6: Walk 10 steps or more Please see discipline specific clinical documentation flowsheet for complete details for this therapy evaluation/treatment. SIGNATURE: Willam Shay PTA PATIENT NAME: Velia Bagley DATE: January 18, 2020 TIME: 2:07 PM Normal [facility] THERAPY NT HNO ID: [id number] Author: Willam Shay Service: Physical Therapy Author Type: Filemaker Developer Type: Therapy (PT/OT/Speech/Resp) Filed: 01/18/2020 9:22 AM Note Text: -------- Attestation signed by Rosemarie Gutierrez at 01/18/2020 12:12 PM Patient care delivered with direct supervision in accordance with treatment plan. Rosemarie Gutierrez PT -------- Physical Therapy Treatment SERVICE DATE: 01/18/2020 SERVICE TIME: 838 to 909 ROOM: [id number] Recommended Discharge Disposition: Acute Rehab Justification For Post Acute Needs: Anticipate that patient will require daily (5x/wk) skilled therapy in a post-acute facility setting at the time of acute hospital discharge;Willing to participate;Good premorbid functional status;Anticipate patient will tolerate 3 hours of daily therapy at the time of admission to post-acute setting PT Recommendations to Nursing: Transfer to/from chair;OOB for Meals;With assist of 2 people Device: Wheeled Walker PT 6 Clicks Score: 11 Precautions/Activity Restrictions: Total Hip Replacement;Weight Bearing Restrictions;Fall Risk;Bed/Chair Alarm Isolation Type: None Extremity With Weight Bearing Restricted: Right Lower Extremity Right Lower Extremity Weight Bearing Status: WBAT Total Hip Replacement Precautions: Posterior ASSESSMENT : Patient presents with ongoing PT goals--patient continues to require increased assist with all mobility tasks, patient with increased fatigue with mobility, increased HR to 130 bpm after gait/transfers. Patient well below baseline functioning at this time. continue to recommend acute care to improve strength, ROM, balance,endurance, normalized gait pattern, and independence with mobility tasks to prior level of function for safe return to home activity. Patient Disposition at Start of Session: Supine in Bed;Call [place] in Reach;Bed Alarm(nurse present) Patient Disposition at End of Session: OOB in Chair;Call [place] in Reach;Chair Alarm Tolerance Limited By Fatigue;Pain Physical Therapy Problem List: Pain;Safety Deficits;Impaired Self Care;Decreased Activity Tolerance;Decreased Strength;Functional Mobility Impairment;Balance Impaired;Decreased Range Of Motion;Cognitive Deficit Patient /Caregiver Goals: Walk;Care For Self Goals for Plan of Care: Able to perform HEP with: Verbal Cues Only Transfer supine to/from sit with: Minimal Assistance Transfer sit to/from stand with: Contact Guard Assistance Ambulate with: Contact Guard Assistance Distance: 30 ft Device: Wheeled Walker Goal: recall 3/3 posterior hip precautions and maintain with mobility Progress Toward Goals: Progressing slower than expected Due To: fatigue Rehab Potential: Good PLAN: Treatment Frequency (times per week): BID Current admission Treatment Interventions: Education;Joint Mobility;Strengthening;F unctional Mobility Training;Balance Training;Neuromuscular Re-education Plan of Care developed with: Patient Additional personnel present during visit: Bette Gutierrez TREATMENT INTERVENTIONS: Therapy Diagnosis: Reduced mobility-other Interventions Provided: Therapeutic Exercise (61404);Therapeutic Activity (53257);Gait Training (95131) Therapeutic Exercise (49447) Treatment Minutes: 14 1 unit Skilled Intervention(s): Patient completed right total hip arthroplasty protocol (ankle pump, quad set, gluteal set, heel slide, hip abd/add to neutral, short arc quad, long arc quad, hip adductor squeeze) x 15 reps with moderate amount of assist. Educated patient on right posterior hip precautions. Patient recalls 0/3 hip precautions--written on dry erase board for review. Patient reports 7/10 pain. Patient set up with ice to surgical hip and elevated lower extremity as needed. Therapeutic Activity (73423) Treatment Minutes: 7 0 units Skilled Intervention(s): Instructed patient in supine to sit pushing with upper extremities to sit up--assist x2 for long sit pivot transfer to EOB--cuing for proper pushing with UEs as able. Instruction in sit to and from stand technique with proper hand placement and body positioning at edge of bed/chair--cuing for proper UE support, assist to scoot RLE forward to maintain 90 degree hip precaution. patient educated on hip precautions, further review needed for proper teach back. Gait Training (53929) Treatment Minutes: 10 1 unit Skilled Intervention(s): Instruction in sit to stand technique with proper hand placement and body positioning at edge of bed/chair, Instruction in stand to sit technique with LE's touching chair/bed and reaching back for surface, Instruction in sequencing, gait pattern and Instruction in correction of gait deviations--cuing and assist for weight shifts, picking up feet with stepping, not pivoting on RLE, proper posture, LE stepping. Total Timed Code Treatment Minutes: 31 Total Treatment Time (minutes): 31 SUBJECTIVE: Current Hospital Course: Chart reviewed and no significant medical updates relevant to therapy were noted Reason for Physical Therapy Consult : eval Relevant Past Medical History: recent hip fracture October 2019 s/p cannulated screw, carpal tunnel, neck pain Patient Report: patient stated doing Ok. Home Environment Patient Lives With: Family(Son) Assistance Available: methods time analyst Entry To Home: No Stairs Number Of Stairs To Bed/Bath: 0 Tub/Shower Type: tub shower combo Equipment Owned: Wheeled Walker;Shower Chair Prior Functional Level: Within Functional Limits Prior Functional Level Comments: Pt independent IT SPECIALIST OBJECTIVE: CURRENT FUNCTIONAL STATUS: mobility performed during session in bold, other mobility completed during prior session and may no longer be correct or appropriate to complete. Current Functional Mobility Assist Level Additional Information Rolling Supine to Sit Maximal Assistance(x2) Sit to Supine Maximal Assistance Scooting Maximal Assistance Sit to Stand Moderate Assistance Stand to Sit Moderate Assistance Bed to Chair Moderate Assistance Bed To Chair Transfer Type: Stand Pivot Bed To Chair Transfer Equipment: Gait Belt;Wheeled Walker Toilet/Commode Gait Moderate Assistance Gait Device: Wheeled Walker Gait Distance (feet): 2' multi directional stepping Stairs Curb Step Car Transfer Gait Deviations Right Lower Extremity: Foot clearance decreased;Heel strike during initial stance decreased;Push off during terminal stance decreased;Stance time decreased;Step length decreased;Weight bearing decreased General Deviations/Observations: Antalgic gait;Tati decreased;Difficulty changing direction/turning;Narrow Base of Support;Non-functional gait speed;Shuffling Gait;Step length decreased;UE weight bearing on assistive device excessive Balance: Static Sitting;Dynamic Sitting;Static Standing;Dynamic Standing Static Sitting Balance: Fair Patient able to maintain balance with handhold support, may require occasional minimal assistance Dynamic Sitting Balance: Poor Patient unable to accept challenge or move without loss of balance Static Standing Balance: Poor Patient requires handhold support and moderate to maximal assistance to maintain position Dynamic Standing Balance: Poor Patient unable to accept challenge or move without loss of balance JH-HLM: 5: Standing (1 or more minutes) Please see discipline specific clinical documentation flowsheet for complete details for this therapy evaluation/treatment. SIGNATURE: Willam Shay PTA PATIENT NAME: Velia Bagley DATE: January 18, 2020 TIME: 9:17 AM Normal [facility] ALLIED HEALTHon 01-17-2020 ALLIED HEALTH HNO ID: [id number] Author: Jessica Alford) Maria Teresa Service: Spiritual Care Author Type: Senior Security Analyst Type: Allied Health Filed: 01/17/2020 4:35 PM Note Text: SPIRITUAL CARE PROGRESS NOTE SERVICE DATE: 01/17/2020 SERVICE TIME: 4.00pm Senior Security Analyst visited patient on rounds as follow up to pre-surgery prayers yesterday. Patient expressed significant discomfort, I'm not doing well at all. Senior Security Analyst provided prayer at pt's request. Senior Security Analyst notified staff of pt's discomfort. To contact the Spiritual Care Department: Please call [phone]. SIGNATURE: Chaplain Georgi PATIENT NAME: Velia Bagley DATE: January 17, 2020 TIME: 4:31 PM PAGER/CONTACT #: [phone] Normal [facility] ALLIED HEALTH HNO ID: [id number] Author: Jo (Rn) Giovana Service: Nursing Author Type: Registered Nurse Type: Allied Health Filed: 01/17/2020 8:37 AM Note Text: ANCILLARY ORTHOPEDIC RESERVE OFFICER PROGRESS NOTE SERVICE DATE: 01/17/2020 SERVICE TIME: 0830 Spoke to patient at bedside, he is doing ok, pain managed. He would like to be able to get into [facility], pending PT eval. If unable to go to [facility], patient will plan to go home with son, has all DME's. Will wait on PT eval and continue to follow. SIGNATURE: Jo Cruz RN PATIENT NAME: Velia Bagley DATE: January 17, 2020 TIME: 8:36 AM PAGER/CONTACT #: [phone] Normal [facility] Basic Metabolic Panelon 01-02 Anion gap [Moles/Vol] 8 mmol/L Low 9-18 [facility] Comment on above: Performed By: #### B MP #### [facility] [address] [place], [place] [address] Calcium [Mass/Vol] 8.3 mg/dL Low 8.5-10.2 [facility] Comment on above: Performed By: #### B MP #### [facility] [address] [place], [place] [address] Chloride [Moles/Vol] 109 mmol/L High 97-105 [facility] Comment on above: Performed By: #### B MP #### [facility] [address] [place], [place] [address] CO2 Blood 22 mmol/L Normal 22-30 [facility] Comment on above: Performed By: #### B MP #### [facility] [address] [place], [place] [address] Creatinine [Mass/Vol] 1.01 mg/dL Normal 0.73-1.22 [facility] Comment on above: Performed By: #### B MP #### [facility] [address] [place], [place] [address] Glucose [Mass/Vol] 135 mg/dL High 74-99 [facility] Comment on above: Result Comment: The [place] [employer] (ADA) provides guidance for cutoff values for fasting glucose and random glucose. The ADA defines fasting as no caloric intake for at least 8 hours.Fasting plasma glucose results between 100 to 125 mg/dL indicate increased risk for diabetes (prediabetes). Fasting plasma glucose results greater than or equal to 126 mg/dL meet the criteria for diagnosis of diabetes. In the absence of unequivocal hyperglycemia, results should be confirmed by repeat testing. In a patient with classic symptoms of hyperglycemia or hyperglycemic crisis, random plasma glucose results greater than or equal to 200 mg/dL meet the criteria for diagnosis of diabetes. Reference: Standards of Medical Care in Diabetes 2016; [place] [employer]. Diabetes Care. 2016;39(Suppl 1). Performed By: #### B MP #### [facility] [address] [place], [place] [address] Potassium [Moles/Vol] 4.9 mmol/L Normal 3.7-5.1 [facility] Comment on above: Performed By: #### B MP #### [facility] [address] [place], [place] [address] Sodium [Moles/Vol] 139 mmol/L Normal 136-144 [facility] Comment on above: Performed By: #### B MP #### [facility] [address] [place], [place] [address] Urea nitrogen [Mass/Vol] 17 mg/dL Normal 9-24 [facility] Comment on above: Performed By: #### B MP #### [facility] [address] [place], [place] [address] Glucose Meteron 09-15-2020 Glucose [Mass/Vol] 147 mg/dL High 70-99 [facility] Comment on above: Result Comment: BULL JUAREZ Performed By: #### U RIN2 #### [facility] [address] [place] [address] Hemogramon 01-17-2020 Erythrocyte distribution width (RBC) [Ratio] 15.4 % High 11.6-14.4 [facility] Comment on above: Performed By: #### R COVD #### [facility] [address] [place] [address] Hematocrit (Bld) [Volume fraction] 33.8 % Low 40.1-51.0 [facility] Comment on above: Performed By: #### R COVD #### [facility] [address] [place] [address] Hemoglobin (Bld) [Mass/Vol] 10.8 g/dL Low 13.7-17.5 [facility] Comment on above: Performed By: #### R COVD #### [facility] [address] [place] [address] MCH (RBC) [Entitic mass] 29.8 pg Normal 25.7-32.2 [facility] Comment on above: Performed By: #### R COVD #### [place] [address] MCHC (RBC) [Mass/Vol] 32.0 % Low 32.3-36.5 [facility] Comment on above: Performed By: #### R COVD #### [facility] [address] [place] [address] MCV (RBC) [Entitic vol] 93.1 fL Normal 83.2-95.6 [facility] Comment on above: Performed By: #### R COVD #### [facility] [address] [place] [address] Platelet mean volume (Bld) [Entitic vol] 9.1 fL Normal 8.7-12.0 [facility] Comment on above: Performed By: #### R COVD #### [place] [address] Platelets (Bld) [#/Vol] 186 thou/cmm Normal 141-365 [facility] Comment on above: Performed By: #### R COVD #### [facility] [address] [place] [id number] RBC (Bld) [#/Vol] 3.63 mil/cmm Low 4.63-6.08 [facility] Comment on above: Performed By: #### R COVD #### [facility] [address] [place] [address] RDW SD 51.8 fl High 36.1-45.8 [facility] Comment on above: Performed By: #### R COVD #### [facility] [address] [place] [address] WBC (Bld) [#/Vol] 9.08 thou/cmm High 4.23-9.07 [facility] Comment on above: Performed By: #### R COVD #### [facility] [address] [place] [id number] NURSING PROGon 01-17-2020 NURSING PROG HNO ID: [id number] Author: Katlyn (Rn) BULL Saucedo Service: Nursing Author Type: Registered Nurse Type: Nursing Progress Note Filed: 01/17/2020 3:25 PM Note Text: Nursing Progress Note Patient Name: Velia Bagley Patient Location: [place] [id number] Pt stated to tech I think I'm having a seizure tech immediately notified RN. Vitals taken. Pt alert and oriented and conversant at this time. 1440 - strip machine tender priscilla at bedside with pt, sound service paged. Pt is conversant and states I usually have focal seizures. pt also states I think the feeling is starting to go away . Pt has slight arm tremor and states he has some tremors at baseline in extremities. Pt also states he has L side upper and lower weakness at baseline. Pt reports last seizure was in May of 2017. 1445 - notified becky ingram that pt needs to be seen by medical team dillon, pt seen 01/16/[address] Underwood. 1500 - dr. underwood at bedside to assess pt, pt clarified topamax and primidone orders with staff, dr. underwood states she will correct seizure med orders. Pt states he feels better at this time. 1522 - notified dr. underwood pt most recent BP 107/73 and pt is due for clonidine 0.[address] mg at this time[address] Dr. underwodo states to hold clonidine and okay to give gabapentin. Will continue to monitor. This note was completed by: Katlyn Saucedo RN [facility] PROGRESSon 01-17-2020 PROGRESS HNO ID: [id number] Author: Lauren Underwood Service: Hospital Medicine Author Type: Physician Type: Progress Notes Filed: 01/18/2020 2:58 PM Note Text: INPATIENT PROGRESS NOTE SERVICE DATE: 01/17/2020 SERVICE TIME: Subjective CHIEF COMPLAINT: c/o feelinghe is about to have a seizure INTERVAL HPI: Pt feels he is about to have a seizure ? States he takes topamax 100 mg qid 200 mg/100 mg/200 mg/100 mg ? He states he takes primidone 250 mg at night Current Facility-Administered Medications Medication Dose Route Frequency - spironolactone 25 mg tab(s) (ALDACTONE) 25 mg ORAL DAILY - montelukast 10 mg tab(s) (SINGULAIR) 10 mg ORAL AT BEDTIME - potassium chloride ER 20 mEq tab(s) (K-DUR, KLOR-CON) 20 mEq ORAL QID - amitriptyline 50 mg tab(s) (ELAVIL) 50 mg ORAL AT BEDTIME - atorvastatin 40 mg tab(s) (LIPITOR) 40 mg ORAL DAILY - losartan 100 mg tab(s) (COZAAR) 100 mg ORAL DAILY - primidone 250 mg tab(s) (MYSOLINE) 250 mg ORAL AT BEDTIME - cloNIDine HCl 0.1 mg tab(s) (CATAPRES) 0.1 mg ORAL BID AC (0600/1600) - DULoxetine 60 mg cap(s) (CYMBALTA) 60 mg ORAL DAILY - venlafaxine ER 75 mg cap(s) (EFFEXOR XR) 75 mg ORAL DAILY - albuterol 2.5 mg /3 mL (0.083 %) 2.5 mg (PROVENTIL) 2.5 mg INHALATION q 4 H PRN - oxyCODONE IR 5-10 mg tab(s) (ROXICODONE) 5-10 mg ORAL q 3 H PRN - ondansetron 4 mg tab(s) (ZOFRAN) 4 mg ORAL q 6 H PRN Or - ondansetron (PF) 4 mg injection (ZOFRAN) 4 mg INTRAVENOUS q 6 H PRN - magnesium hydroxide 400 mg/5 mL 30 mL (MOM) 30 mL ORAL DAILY PRN - [START ON 01/18/2020] bisacodyl EC 10 mg tab(s) (DULCOLAX) 10 mg ORAL DAILY - aluminum-magnesium hydroxide-simethicone 200-200-20 mg/5 mL 30 mL (MAALOX,MYLANTA,MAG-AL PLUS) 30 mL ORAL q 2 H PRN - ascorbic acid (vitamin C) 500 mg tab(s) (VITAMIN C) 500 mg ORAL BID w MEALS - docusate sodium 100 mg cap(s) (COLACE) 100 mg ORAL BID - enoxaparin 40 mg injection (LOVENOX) 40 mg SUBCUTANEOUS DAILY - NaCl 0.9% iv infusion 75 mL/hr INTRAVENOUS CONTINUOUS - sodium chloride 0.9 % (flush) 2-10 mL (BD POSIFLUSH) 2-10 mL INTRAVENOUS q 12 H - morphine 2-4 mg injection 2-4 mg INTRAVENOUS q 2 H PRN - acetaminophen 650 mg tab(s) (TYLENOL) 650 mg ORAL TID - tiotropium bromide 2.5 mcg/actuation 2 Puff (SPIRIVA RESPIMAT) 2 Puff INHALATION DAILY - fluticasone-vilanterol 100-25 mcg/dose 1 Inhalation (BREO ELLIPTA) 1 Inhalation INHALATION DAILY - pantoprazole DR 20 mg tab(s) (PROTONIX) 20 mg ORAL BID AC (0600/1600) - primidone 50 mg tab(s) (MYSOLINE) 50 mg ORAL DAILY AT 12 PM - primidone 150 mg tab(s) (MYSOLINE) 150 mg ORAL DAILY (7 AM) - topiramate 200 mg tab(s) (TOPAMAX) 200 mg ORAL DAILY (7 AM) - topiramate 100 mg tab(s) (TOPAMAX) 100 mg ORAL DAILY AT 12 PM - topiramate 200 mg tab(s) (TOPAMAX) 200 mg ORAL DAILY (5 PM) - topiramate 100 mg tab(s) (TOPAMAX) 100 mg ORAL AT BEDTIME - cetirizine 10 mg tab(s) (ZyrTEC) 10 mg ORAL AT BEDTIME - gabapentin 800 mg cap(s) (NEURONTIN) 800 mg ORAL QID - verapamil SR 120 mg tab(s) (CALAN SR, ISOPTIN SR) 120 mg ORAL DAILY - tamsulosin ER 0.8 mg cap(s) (FLOMAX) 0.8 mg ORAL AT BEDTIME - nitrofurantoin monohydrate and macrocrystal 100 mg cap(s) (MACROBID) 100 mg ORAL DAILY Objective PHYSICAL EXAM: BP 107/73 Pulse 117 Temp (Src) 97.9 (Oral) Resp 16 Ht 5' 10 (1.78m) Wt 220 lb (99.8kg) SpO2 92% BMI 31.57 kg/(m2). O2 Therapy: Nasal Cannula, Liters: 3 Physical Exam Performed GENERAL: Awake, no distress, cooperative SKIN: No rash HEAD/SINUSES: No significant findings EARS: External ears normal, canals clear NOSE: Nares normal. Septum midline. LUNGS: Lungs clear to auscultation CARDIAC: reg ABDOMEN: Abdomen soft EXTREMITIES: no swelling NEURO: resting tremor DATA: Diagnostic tests reviewed for today's visit: Most recent labs and imaging results. Assessment/Plan See 01/16/20 consult by me Pt feels he is about to have a seizure. Nurse and ortho ABSTRACTER in room and nurse is correcting meds to home dose. He is currently speaking and he is not having an active seizure States he takes topamax 100 mg qid 200 mg/100 mg/200 mg/100 mg He states he takes primidone 250 mg at night Avoid hypotension- DC clonidine DC spironolactone monitor Medication and Non-Pharmacologic VTE Prophylaxis/Anticoagulan ts Anticoagulant AND Antiplatelet Medications (From admission, onward) Start Dose Route Frequency Ordered Stop 01/17/20 0900 enoxaparin 40 mg injection (LOVENOX) (Surgical Risk Categories ) 40 mg SUBCUTANEOUS DAILY 01/16/20 1333 -- 01/16/20 1330 pneumatic compression stockings (fl,oh) VTE Prophylaxis: SIGNATURE: Lauren Underwood DO PATIENT NAME: Velia Bagley DATE: January 17, 2020 TIME: 3:09 PM PAGER: Penny [facility] PROGRESS HNO ID: [id number] Author: Hiral Castaneda Service: Orthopaedic Surgery Author Type: Physician Type: Progress Notes Filed: 01/17/2020 1:24 PM Note Text: I evaluated the patient and personally participated in the antonio components. I agree with the resident's findings and plan as documented and have discussed the case and management of the patient's care with the resident. Signature: Hiral Castaneda MD Service Date: 01/17/2020 Service Time: 1:24 PM ORTHOPAEDIC SURGERY DAILY PROGRESS NOTE ASSESMENT: POD # 1 S/P: R RONALD for FNFx non-union PLAN: -Pain Control -DVT Prophylaxis: Lovenox 40mg daily - lovenox vs asa for d/c ppx -PT/OT: Full Weight Bearing, posterior precautions -Guthrie: none -Post-op Abx: clinda x 2 doses complete -Maintain aquacel dressing -D/C planning: dispo pending pt/ot eval INTERVAL HPI: Patient monitored, no new events overnight. Patient states that they are comfortable. Well Controlled pain. Tolerating Diet. No N/V. OBJECTIVE: BP 119/70 Pulse 88 Temp 37 ?C (98.6 ?F) (Oral) Resp 18 Ht 177.8 cm (5' 10 ) Wt 99.8 kg (220 lb) SpO2 96% BMI 31.57 kg/m? Intake/Output Summary (Last 24 hours) 01/15 2300 - 01/16 0659 In: 1300 [PO:500; IV:800] Out: 1900 [Urine:1900] Exam: General: NAD Extremities: Right Lower Extremity: Dorsalis pedis pulses palpable. Posterior tibial pulses palpable. Dorsi flexion 5/5. Plantar flexion 5/5. Extensor hallucis extension: 5/5. Sensory intact to light touch DP/SP/Carroll/Sa/Tib. Dressing clean, dry and intact. Labs: Recent Labs 01/17/20 0115 WBC 9.08* HB 10.8* HCT 33.8* PLT 186 NA 139 K 4.9 CHLOR 109* CO2 22 CREAT 1.01 BUN 17 GLUC 135* CA 8.3* Imaging: Post operative radiographs show acceptable alignment and position of implants SIGNATURE: Sally De Leon MD PATIENT NAME: Velia Bagley DATE: 01/17/20 TIME: 6:02 AM PAGER/CONTACT #: [phone] [facility] THERAPY NTon 01-17-2020 THERAPY NT HNO ID: [id number] Author: Willam Kruse) Laurita Service: Physical Therapy Author Type: Filemaker Developer Type: Therapy (PT/OT/Speech/Resp) Filed: 01/17/2020 2:48 PM Note Text: -------- Attestation signed by Niall Willson PT at 01/17/2020 4:46 PM I reviewed and agree with the documentation corresponding to this therapy visit. SIGNATURE: Niall Willson PT DATE: January 17, 2020 TIME: 4:46 PM -------- PHYSICAL THERAPY MISSED VISIT SERVICE DATE: 01/17/2020 SERVICE TIME: 1447 to 1447 ROOM: [place] [address] Attempted Treatment. Patient not seen due to Another service at bedside. Nursing staff if room assessing patient--possible seizure--hold session this date--will continue to follow patient when medically stable. SIGNATURE: Willam Shay PTA PATIENT NAME: Velia Bagley DATE: January 17, 2020 TIME: 2:47 PM Additional personnel present during visit: Bette Gutierrez [facility] THERAPY NT HNO ID: [id number] Author: Taylor Pennington OT Service: Occupational Therapy Author Type: Occupational Therapist Type: Therapy (PT/OT/Speech/Resp) Filed: 01/17/2020 2:56 PM Note Text: Occupational Therapy Evaluation SERVICE DATE: 01/17/2020 SERVICE TIME: 1408 to 1435 ROOM: [place] [address] Recommended Discharge Disposition: Acute Rehab Recommended Discharge Disposition Comments: Acute rehab to maximize independence with functional mobility and ADLs; return to baseline of functioning Justification For Post Acute Needs: Anticipate patient will tolerate 3 hours of daily therapy at the time of admission to post-acute setting;Willing to participate;Motivated OT Recommendations to Nursing: With assist of 2 people;Bedside Commode for Toileting;Edge of bed ADL?s OT 6 Clicks Score: 15 Precautions/Activity Restrictions: Total Hip Replacement;Weight Bearing Restrictions;Fall Risk;Bed/Chair Alarm Extremity With Weight Bearing Restricted: Right Lower Extremity Right Lower Extremity Weight Bearing Status: WBAT Total Hip Replacement Precautions: Posterior ASSESSMENT: Patient admitted for R RONALD with posterior precautions. Patient followed 1 step commands with significant verbal cueing. Patient with significant unsteadiness on feet and required heavy fall guarding during functional mobility from bed to chair. Patient with slow gait and legs buckled during functional mobility. Patient demonstrated significant decreased activity tolerance and required rest breaks throughout. Upon reaching chair, patient expressed significant fatigue. Requires skilled OT to maximize independence with ADLs and functional mobility. Patient Disposition at Start of Session: Supine in Bed;Call [place] in Reach;Bed Alarm Patient Disposition at End of Session: OOB in Chair;Call [place] in Reach;Family Present;Chair Alarm Tolerance Limited By Pain Occupational Therapy Problem List: Decreased Activity Tolerance;Functional Mobility Impairment;Impaired Self Care Patient /Caregiver Goals: Go To Rehab Goals for Plan of Care: Grooming with: Set Up Upper Body Bathing with: Set Up Upper Body Dressing with: Set Up Lower Body Bathing with: Moderate Assistance Lower Body Dressing with: Moderate Assistance Chair Transfer with: Minimal Assistance Toilet Transfer with: Minimal Assistance Tolerate (minutes of functional activity): 10 Functional Activity with: Minimal Assistance Additional Goal 1: Patient will complete lower body dressing with use of AE with verbal cues only Additional Goal 2: Patient will verbalize posterior hip precautions with 100% acurracy Rehab Potential: Good PLAN: Treatment Frequency (times per week): 5(1-5) Current admission Treatment Interventions: Self Care / Home Management;Functional Mobility Training Plan of Care developed with: Patient TREATMENT INTERVENTIONS: Therapy Diagnosis: Reduced mobility-other;Decreased activities of daily living (ADL) Interventions Provided: Evaluation;Therapeutic Activity (75030) $ Evaluation-Moderate (10627) Billed Units: 1 unit OT Evaluation Moderate Complexity: Occupational Profile - Extended review of patient's medical record completed including patient's physical, cognitive, and psycho-social history (please see current hospital course of evaluation). Occupational Performance - Pt presents with deficits in feeding, grooming, UE bathing/dressing, LE bathing/dressing, functional transfers, functional mobility, decreased safety awareness, decreased insight into deficits Complexity in Clinical Decision Making - The extent of clinical reasoning was moderate, several treatment options present for the patient, need for modification during the evaluation was minimal/moderate, comorbidities affecting occupational performance: R RONALD, Cerivacallgia, weakness Therapeutic Activity (99241) Treatment Minutes: 10 1 unit Skilled Intervention(s): Educated patient on role of OT in hospital setting. Facilitated supine to sit transfer to maximize independence with ADLs. Utilized patient's bed in chair position to maximize independence with transfer. Instructed patient to use long sit technique for completion of transfer due to hip precautions. Instructed patient to scoot legs off the EOB and support self upright with arms. Provided max assist with significant verbal cues throughout supine to sit transfer. Provided support at patient's legs and shoulders. Once at EOB, facilitated sit to stand transfer. Instructed patient to kick out RLE due to precautions when standing. Facilitated functional mobility from bed to chair to maximize independence with functional mobility and increase stranding balance and activity tolerance. Provided significant fall guarding throughout due to patient's unsteadiness on feet. Provided verbal cues throughout for motor planning and safety during functional mobility. Allotted for increased time with transfer due to patient's decreased activity tolerance. Instructed patient to feel chair with back of legs prior to sitting and to kick out RLE, Set patient up in chair and placed call alcala in reach. Reviewed posterior hip precautions with patient. Total Timed Code Treatment Minutes: 10 Total Treatment Time (minutes): 27 SUBJECTIVE: Current Hospital Course: Chart Reviewed: Procedure(s): Procedure(s) (LRB): ARTHROPLASTY TOTAL HIP CONVERSION AFTER PREVIOUS HIP SURG (Right) REMOVAL HARDWARE FEMUR (Right) Reason for Occupational Therapy Consult: R RONALD Relevant Past Medical History: recent hip fracture October 2019 s/p cannulated screw, carpal tunnel, neck pain Patient Report: Patient awake in supine upon arrival; 8/10 pain. Home Environment Patient Lives With: Family(Son) Assistance Available: methods time analyst Entry To Home: No Stairs Number Of Stairs To Bed/Bath: 0 Tub/Shower Type: tub shower combo Equipment Owned: Wheeled Walker;Shower Chair Prior Functional Level: Within Functional Limits Prior Functional Level Comments: Pt independent IT SPECIALIST OBJECTIVE: Cognition/Communication Deficits Responsiveness: Alert Follows Commands: 1-step Commands;Cueing Needed Cueing to Follow Commands: Minimum Executive Function Deficits: Safety Awareness;Motor Planning Motor Planning Deficit: Minimal impairment Safety Awareness Deficit: Minimal impairment CURRENT FUNCTIONAL STATUS: Current Activities of Daily Living Assist Level Feeding Set Up Grooming Minimal Assistance Bathing Upper Body Minimal Assistance Bathing Lower Body Maximal Assistance Dressing Upper Body Minimal Assistance Dressing Lower Body Maximal Assistance Toileting Moderate Assistance Functional Mobility Assist Level Rolling Supine to Sit Maximal Assistance Sit to Supine Maximal Assistance Scooting Sit to Stand Moderate Assistance Stand to Sit Moderate Assistance Bed to Chair Toilet/Commode Functional Mobility Moderate Assistance Wheeled Walker Functional Mobility Comments: Significant fall guarding d/t unsteady gait and buckling throughout; slow gait Range of Motion: WFL Strength: WFL Balance: Static Sitting;Dynamic Standing Static Sitting Balance: Fair Patient able to maintain balance with handhold support, may require occasional minimal assistance Dynamic Standing Balance: Poor Patient unable to accept challenge or move without loss of balance Activity Tolerance: Standing Activity Standing Activity: Functional mobility from bed to chair Standing Activity Tolerance (in minutes): 4 Please see discipline specific clinical documentation flowsheet for complete details for this therapy evaluation/treatment. SIGNATURE: Taylor Pennington OT/Matt PATIENT NAME: Velia Bagley DATE: January 17, 2020 TIME: 2:45 PM Normal [facility] THERAPY NT HNO ID: [id number] Author: Niall (PtVibha Willson PT Service: Physical Therapy Author Type: Physical Therapist Type: Therapy (PT/OT/Speech/Resp) Filed: 01/17/2020 10:14 AM Note Text: Physical Therapy Evaluation SERVICE DATE: 01/17/2020 SERVICE TIME: 908 to 947 ROOM: [place] [address] Recommended Discharge Disposition: Acute Rehab Justification For Post Acute Needs: Anticipate that patient will require daily (5x/wk) skilled therapy in a post-acute facility setting at the time of acute hospital discharge;Willing to participate;Good premorbid functional status;Anticipate patient will tolerate 3 hours of daily therapy at the time of admission to post-acute setting PT Recommendations to Nursing: Transfer to/from chair;OOB for Meals;With assist of 2 people Device: Wheeled Walker PT 6 Clicks Score: 12 Precautions/Activity Restrictions: Fall Risk;Bed/Chair Alarm;Weight Bearing Restrictions;Total Hip Replacement Extremity With Weight Bearing Restricted: Right Lower Extremity Right Lower Extremity Weight Bearing Status: WBAT Total Hip Replacement Precautions: Posterior ASSESSMENT : This patient was 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 This patient is below baseline functioning of independent mobilizing with walker and will benefit from continued skilled therapy in the hospital for treatment of the following body systems/impairments: musculoskeletal strength, ROM; neuromuscular control, coordination, balance; functional mobility including bed mobility, transfers, gait, stairs; Patient Disposition at Start of Session: Supine in Bed;Call [place] in Reach Patient Disposition at End of Session: Supine in Bed;Call [place] in Reach Tolerance Limited By Fatigue;Physiologic Response(lightheaded/diz zy when upright) Physical Therapy Problem List: Pain;Safety Deficits;Impaired Self Care;Decreased Activity Tolerance;Decreased Strength;Functional Mobility Impairment;Balance Impaired;Decreased Range Of Motion;Cognitive Deficit Patient /Caregiver Goals: Walk;Care For Self Goals for Plan of Care: Able to perform HEP with: Verbal Cues Only Transfer supine to/from sit with: Minimal Assistance Transfer sit to/from stand with: Contact Guard Assistance Ambulate with: Contact Guard Assistance Distance: 30 ft Device: Wheeled Walker Goal: recall 3/3 posterior hip precautions and maintain with mobility Rehab Potential: Good PLAN: Treatment Frequency (times per week): BID Current admission Treatment Interventions: Education;Joint Mobility;Strengthening;F unctional Mobility Training;Balance Training;Neuromuscular Re-education Plan of Care developed with: Patient TREATMENT INTERVENTIONS: Therapy Diagnosis: Reduced mobility-other Interventions Provided: Evaluation;Therapeutic Activity (28496);Gait Training (21151) $ Evaluation-Moderate (42079) Billed Units: 1 unit History and examination of body systems see assessment section above. This patient?s clinical presentation is evolving. The patient required a moderate complexity evaluation. Therapeutic Activity (79429) Treatment Minutes: 15 1 unit Skilled Intervention(s): Educated on role of physical therapy in the hospital and in discharge planning, benefits of participation in physical activity on progression of functional status, risks of immobility Educated on posterior hip precautions and that he can bear weight as tolerated on right leg. Instructed patient in supine to sit pushing with upper extremities to sit up Instruction in sit to stand technique with proper hand placement and body positioning at edge of bed/chair Instruction in stand to sit technique with lower extremities touching chair/bed and reaching back for surface Instructed patient in sit to supine using safe, effective technique Discussed discharge planning and recommended acute rehab based on performance this session. Highlighted difficulty with mobility and safety concerns for home, educated on difference between rehab and halfway Gait Training (59608) Treatment Minutes: 9 1 unit Skilled Intervention(s): Instruction in sequencing, gait pattern, Instruction in correction of gait deviations and Instruction in use of equipment, cues for sequence and pattern Facilitated gait training a few steps at bedside, mod A with wheeled walker. Cued for foot placement, base of support, staying close to bed. Toward last couple steps pt began to feel lightheaded and cued to sit down. During stand to sit transition pt's knees appeared to buckle, though he caught himself skilled nursing down. Assisted to lower safely with gait belt. Pt reluctant to use wheeled walker, educated in benefits including increased UE support allowing him to take weight off right leg. 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 Posterior precautions, WBAT RLE Reason for Physical Therapy Consult : eval Relevant Past Medical History: recent hip fracture October 2019 s/p cannulated screw, carpal tunnel, neck pain Patient Report: Pt agreeable to therapy with encouragement. Appears mildly confused, though oriented. Home Environment Patient Lives With: Family(son) Assistance Available: methods time analyst(son works) Entry To Home: No Stairs Number Of Stairs To Bed/Bath: 0 Tub/Shower Type: tub shower combo Equipment Owned: Wheeled Walker;Shower Chair Prior Functional Level: Within Functional Limits Prior Functional Level Comments: Pt states was able to mobilize with walker prior to admit. States he could do ADLs/IADLs on his own OBJECTIVE: Range of Motion: WFL Except;ROM Limitation Comments ROM Limitation Comments: right hip limited by pain Strength: WFL Except;Strength Limitation Comments Strength Limitation Comments: right hip limited by pain CURRENT FUNCTIONAL STATUS: Current Functional Mobility Assist Level Additional Information Rolling Supine to Sit Maximal Assistance Sit to Supine Maximal Assistance Scooting Sit to Stand Moderate Assistance Stand to Sit Moderate Assistance Bed to Chair Toilet/Commode Gait Moderate Assistance Gait Device: Wheeled Walker Gait Distance (feet): 2ft, a few side steps at bedside Stairs Curb Step Car Transfer General Deviations/Observations: Antalgic gait;Tati decreased;Flexed trunk posture;Step length decreased;UE weight bearing on assistive device excessive(right knee buckling) Balance: Static Standing;Dynamic Standing Static Standing Balance: Poor Patient requires handhold support and moderate to maximal assistance to maintain position Dynamic Standing Balance: Poor Patient unable to accept challenge or move without loss of balance JH-HLM: 5: Standing (1 or more minutes) Please see discipline specific clinical documentation flowsheet for complete details for this therapy evaluation/treatment. SIGNATURE: Niall Willson PT PATIENT NAME: Velia Bagley DATE: January 17, 2020 TIME: 10:08 AM Normal [facility] Urinalysis, reflexon 020 Appearance (U) CLEAR Normal [facility] Comment on above: Performed By: #### R COVD #### [place] [address] Bilirubin (U) [Mass/Vol] Negative Normal Negative [facility] Comment on above: Performed By: #### R COVD #### [place] [address] Color (U) YELLOW Normal [facility] Comment on above: Performed By: #### R COVD #### [place] [address] Glucose Ql (U) Negative Normal Negative [facility] Comment on above: Performed By: #### R COVD #### [facility] [address] [place] [address] Hemoglobin,Urine MODERATE Abnormal Negative [facility] Comment on above: Performed By: #### R COVD #### [facility] [address] [place] [address] Ketone Urine Negative Normal Negative [facility] Comment on above: Performed By: #### R COVD #### [facility] [address] [place] [address] Leukocyte esterase Test strip Ql (U) TRACE Abnormal Negative [facility] Comment on above: Performed By: #### R COVD #### [facility] [address] [place] [address] Nitrite reflex Negative Normal Negative [facility] Comment on above: Performed By: #### R COVD #### [place] [address] pH (U) 6.5 [pH] Normal 5.0-8.0 [facility] Comment on above: Performed By: #### R COVD #### [place] [address] Protein (U) [Mass/Vol] Negative Normal Negative [facility] Comment on above: Performed By: #### R COVD #### [place] [address] Reflex Comment see below Normal [facility] Comment on above: Result Comment: Refl ex to culture is not indicated based on established laboratory criteria. Performed By: #### R COVD #### [facility] [address] [place] [address] Specific [place], Ur 1.012 Normal 1.005-1.030 [facility] Comment on above: Performed By: #### R COVD #### [place] [address] Urobilinogen,Ur 1.0 EU/dL Normal 0.2-1.0 [facility] [place] Comment on above: Performed By: #### R COVD #### [place] [address] Bacteria LM.HPF (Urine sed) [#/Area] NONE Normal None [facility] Comment on above: Performed By: #### R COVD #### [facility] [address] [place], [place] [address] Ep Cells Urine 0.8 /hpf Normal 0.0-5.0 [facility] Comment on above: Performed By: #### R COVD #### [facility] [address] [place] [address] Hyaline Cast 0.3 /lpf Normal 0.0-1.0 [facility] Comment on above: Performed By: #### R COVD #### [facility] [address] [place], [place] [address] RBC LM.HPF (Urine sed) [#/Area] 15.4 /[HPF] High 0.0-5.0 [facility] Comment on above: Performed By: #### R COVD #### [facility] [address] [place] [address] WBC, reflex 1.70 /hpf Normal 0.00-5.00 [facility] Comment on above: Performed By: #### R COVD #### [facility] [address] [place] [address] ALLIED HEALTHon 01-16-2020 ALLIED HEALTH HNO ID: [id number] Author: Jessica Morel (Chaplain) Service: Spiritual Care Author Type: Senior Security Analyst Type: Allied Health Filed: 01/16/2020 11:16 AM Note Text: SPIRITUAL CARE PROGRESS NOTE SERVICE DATE: 01/16/2020 SERVICE TIME: 15 paged; pt requests presurgical prayers. Senior Security Analyst provided spiritual care and prayers for pt and pt son. To contact the Spiritual Care Department: Please call [phone]. SIGNATURE: Chaplain Georgi PATIENT NAME: Velia Bagley DATE: January 16, 2020 TIME: 11:15 AM PAGER/CONTACT #: [phone] Normal [facility] ANES Nella 01-16-2020 ANES POST HNO ID: [id number] Author: Pooja Leblanc Service: Anesthesiology Author Type: Physician Type: Anesthesia PostOp Filed: 01/16/2020 4:37 PM Note Text: POST ANESTHESIA EVALUATION NOTE SERVICE DATE: 01/16/2020 SERVICE TIME: 4:36 PM : 1960 Vitals: 01/16/20 1350 01/16/20 1445 01/16/20 1515 01/16/20 1627 Temp: 36 ?C (96.8 ?F) 36.4 ?C (97.5 ?F) 36.4 ?C (97.5 ?F) 36.3 ?C (97.3 ?F) 01/16/20 1530 01/16/20 1545 01/16/20 1600 01/16/20 1627 BP: 102/71 120/85 116/80 93/68 01/16/20 1530 01/16/20 1545 01/16/20 1600 01/16/20 1627 Pulse: 88 93 87 91 01/16/20 1530 01/16/20 1545 01/16/20 1600 01/16/20 1627 Resp: 12 18 10 16 01/16/20 1530 01/16/20 1545 01/16/20 1600 01/16/20 1627 SpO2: 100% 99% 100% 99% Validated Vital Signs: Yes POST ANES STATUS: No apparent anesthetic complications. The patient is appropriately hydrated with stable respiratory and cardiovascular status. Patient has safe and adequate airway control. The patient has appropriate pain relief and no significant post operative nausea or vomiting. The patient has achieved baseline mental status. Intra-Operative Events: No Significant Anesthesia Events Further assessment by Anesthesia Service: None Other Remarks: SIGNATURE: Pooja Leblanc MD PATIENT NAME: Velia Bagley DATE: January 16, 2020 TIME: 4:36 PM PAGER/CONTACT #: [phone] [facility] ANES PREOPon 01-16-2020 ANES PREOP HNO ID: [id number] Author: Pooja Leblanc Service: Anesthesiology Author Type: Physician Type: Anesthesia PreOp Filed: 01/16/2020 11:45 AM Note Text: ANESTHESIOLOGY DAY OF SURGERY NOTE SERVICE DATE: 01/16/2020 SERVICE TIME: 9:29 AM : 1960 Procedure(s) (LRB): ARTHROPLASTY TOTAL HIP CONVERSION AFTER PREVIOUS HIP SURG (Right) REMOVAL HARDWARE FEMUR (Right) Surgeon(s): Hiral De Leon Estimated body mass index is 31.57 kg/m? as calculated from the following: Height as of 01/10/20: 177.8 cm (5' 10 ). Weight as of 01/10/20: 99.8 kg (220 lb). Most recent hematocrit and potassium results: Hematocrit 44.2 01/02/2020 Potassium 4.3 01/02/2020 59yo male with right femoral neck fracture, migraine JOHNS, anemia, h/o DVT, essential tremor, HTN, GERD, lumbar spinal stenosis, asthma, TIA, OA ANES DOS/PREOP NOTE: Vitals: 01/16/20 1007 BP: 106/74 Pulse: 65 Resp: 18 Temp: 36.4 ?C (97.5 ?F) TempSrc: Temporal Artery SpO2: 98% ACTIVE PROBLEM LIST Variants of Migraine, Not Elsewhere Classified, With Intractable Migraine, So Stated, Without Mention of Status Migrainosus Carpal Tunnel Syndrome Cervicalgia Myalgia and Myositis, Unspecified Iron Deficiency Anemia Weakness Lymphadenopathy Closed Displaced Fracture of Right Femoral Neck (Hcc) Status Post Total Hip Replacement, Right 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 Multiple blood clots before (3-4). - Hypertension Mother - Heart Failure Father 72 of CHF. 2 OR before that - Parkinson?s Disease Father 68 - Prostate Cancer Brother - Parkinson?s Disease Paternal Grandfather - Diabetes No Family History Social History: Social History Tobacco Use - Smoking status: Never Smoker - Smokeless tobacco: Never Used - Tobacco comment: second hand smoke from father. Substance Use Topics - Alcohol use: No - Drug use: No No current facility-administered medications on file prior to encounter. Current Outpatient Medications on File Prior to Encounter Medication Sig - DULoxetine (CYMBALTA) 60 mg capsule Take 60 mg by mouth once daily. - primidone (MYSOLINE) 250 mg tablet Take 250 mg by mouth four times daily. 350mg Tab in morning and 1 Tab in the afternoon 50 Mg and 250Mg at dinner - topiramate (TOPAMAX) 200 mg tablet Take 200 mg by mouth twice daily. - verapamil (CALAN, ISOPTIN) 120 mg tablet Take 120 mg by mouth three times daily. - amLODIPine (NORVASC) 5 mg tablet Take 5 mg by mouth once daily. - cloNIDine HCl (CATAPRES) 0.1 mg tablet Take 0.1 mg by mouth twice daily before meals (0600/1600). - umeclidinium (INCRUSE ELLIPTA) 62.5 mcg/actuation inhaler Inhale 1 Puff as instructed once daily. - nitrofurantoin monohydrate and macrocrystal (MACROBID) 100 mg capsule TAKE 1 CAPSULE BY MOUTH EVERY DAY - primidone (MYSOLINE) 50 mg tablet Take 250 mg by mouth daily at bedtime. - amitriptyline (ELAVIL) 100 mg tablet Take 50 mg by mouth daily at bedtime. - atorvastatin (LIPITOR) 20 mg tablet Take 40 mg by mouth once daily. - budesonide-formoterol (SYMBICORT) 160-4.5 mcg/actuation inhaler Inhale 2 Puffs as instructed twice daily. - gabapentin (NEURONTIN) 300 mg capsule Take 800 mg by mouth four times daily. - losartan (COZAAR) 100 mg tablet Take 100 mg by mouth once daily. - NASAL ALLERGY 55 mcg nasal inhaler - fluticasone (FLONASE) 50 mcg/actuation nasal spray Use 2 Sprays in each nostril once daily. - omeprazole (PRILOSEC) 20 mg capsule Take 1 capsule by mouth daily before dinner. 30 MINUTES BEFORE DINNER. (Patient taking differently: Take 20 mg by mouth twice daily. 30 MINUTES BEFORE DINNER. ) - montelukast (SINGULAIR) 10 mg tablet Take 10 mg by mouth daily at bedtime. - potassium chloride ER (K-DUR, KLOR-CON) 20 mEq tablet Take 20 mEq by mouth four times daily. - spironolactone (ALDACTONE) 25 mg tablet Take 25 mg by mouth once daily. - celecoxib (CELEBREX) 200 mg capsule Take 200 mg by mouth four times daily. - ALBUTEROL SULFATE (PROAIR HFA INHALATION) Inhale 2 Puffs as instructed. Prn SOB - oxyCODONE IR (ROXICODONE) 5 mg immediate release tablet Take 5 mg by mouth every 6 hours as needed. - FASENRA 30 mg/mL injection Inject 30 mg subcutaneously every 8 weeks. Next one due 11/15/19 - rizatriptan (MAXALT) 10 mg tablet Take 10 mg by mouth as needed. - topiramate (TOPAMAX) 100 mg tablet 2 in am, 1 at noon, 1 at evening and 2 at bedtime (600 mg/day total) (Patient taking differently: 100 mg. 1 in am, 1 at bedtime (600 mg/day total) ) Current Facility-Administered Medications Medication Dose Route Frequency Provider Last Rate Last Dose - lidocaine 10 mg/mL (1 %) 1-2 mg injection (XYLOCAINE) 0.1-0.2 mL INTRADERMAL PRN Hiral Gela Vrabec - lactated ringers infusion 5-30 mL/hr INTRAVENOUS CONTINUOUS Hiral Gela Vrabec - tranexamic acid 1,000 mg in NaCl 0.9% 100 mL (CYKLOKAPRON) 1,000 mg INTRAVENOUS Pre-Op Once Hiral Gela Vrabec - tranexamic acid 1,000 mg in NaCl 0.9% 100 mL (CYKLOKAPRON) 1,000 mg INTRAVENOUS ONCE Hiral Gela Vrabec 600 mL/hr at 01/16/20 1140 1,000 mg at 01/16/20 1140 - clindamycin iv piggyback 900 mg in D5W 50 mL (CLEOCIN) 900 mg INTRAVENOUS ONCE Hiral Gela Vrabec 100 mL/hr at 01/16/20 1129 900 mg at 01/16/20 1129 - vancomycin iv piggyback 1 g in D5W 200 mL (VANCOCIN) 1 g INTRAVENOUS ONCE Hiral Gela Vrabec 200 mL/hr at 01/16/20 1045 1 g at 01/16/20 1045 - NaCl 0.9% irrigation bag X (OR/PROCEDURE) PRN Hiral Ren Vrabec 3,000 mL at 01/16/20 1107 - NaCl 0.9% irrigation bottle X (OR/PROCEDURE) PRN Hiral Ren Vrabec 1,000 mL at 01/16/20 1107 - water for irrigation irrigation X (OR/PROCEDURE) PRN Hiral Ren Vrabec 1,000 mL at 01/16/20 1107 Allergies: ALLERGIES Allergen Reactions - Avocado Swelling - Baclofen Other: See Comments Dizziness and full body weakness - Candasartan [Other] Rash - Chocolate Unknown - Ciprofloxacin (Bulk) Anaphylaxis - Grass Pollen Unknown - Indocin [Indomethac* Rash - Ivp Dye [Iodine] Anaphylaxis - Penicillins Rash - Lima Oil Unknown - Propranolol Other: See Comments Severe low bp and kidneys shutting down. - Sulfa (Sulfonamide * Rash, Itching - Valium [Diazepam] Other: See Comments Depression DOS EXAM: Adequate NPO status: Yes Anesthetic risks, benefits, alternatives, personnel and consent discussed: Yes Patient agrees to proceed: Yes Previous Anesthesia: No history of adverse event. Airway Assessment: MP 2; Neck ROM: Full ROM without neurologic symptoms; Airway Evaluation: Pena Present Symptoms of Sleep Apnea: Age over 50 (59 year old) and Male gender Dentition: Poor dentition Chipped, loose and/or missing Additional Physical Exam: Lungs: Patient health status unchanged since recent history and physical. See history and physical for exam findings. Cardiac: Patient health status unchanged since recent history and physical. See history and physical for exam findings. Additional Pertinent Findings: N/A Blood Products: Not anticipated for this procedure. Anesthetic Plan: General, Standard ASA Monitors Pain Management Plan: Parenteral or Oral ASA Class: 3 Other Medical Problems: None Chronic Beta Erika medication administered within 24 hours: N/A I have interviewed and examined the patient. I have reviewed the medical record and/or the pre-anesthesia evaluation, pertinent labs, and test results. Significant changes in the patient's condition since the History and Physical, not otherwise documented in primary service progress notes: No This contains updated information obtained within 48 hours of Surgery/Procedure. SIGNATURE: Pooja Leblanc MD PATIENT NAME: Velia Bagley DATE: January 16, 2020 TIME: 9:29 AM CSN: [id number] [facility] CONSULTon 01-16-2020 CONSULT HNO ID: [id number] Author: Lauren Underwood Service: Hospital Medicine Author Type: Physician Type: Consults Filed: 01/17/2020 5:26 AM Note Text: HISTORY AND PHYSICAL EXAMINATION-consult SERVICE DATE: 01/16/2020 SERVICE TIME: 8:04 p PRIMARY CARE PHYSICIAN: Rachel Rayo MD Subjective CHIEF COMPLAINT: consult for post op medical mgmt HPI: This is a 59 year old male who underwent Procedure(s) 01/16/20: Procedure(s) (LRB): ARTHROPLASTY TOTAL HIP CONVERSION AFTER PREVIOUS HIP SURG (Right) REMOVAL HARDWARE FEMUR (Right) Past medical history as listed. Patient has no postop complaints at this time. He is breathing comfortably. 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 Multiple blood clots before (3-4). - Hypertension Mother - Heart Failure Father 72 of CHF. 2 OR before that - Parkinson?s Disease Father 68 - Prostate Cancer Brother - Parkinson?s Disease Paternal Grandfather - Diabetes No Family History Social History Tobacco Use - Smoking status: Never Smoker - Smokeless tobacco: Never Used - Tobacco comment: second hand smoke from father. Substance Use Topics - Alcohol use: No - Drug use: No - aspirin 81 mg chewable tablet, Take 81 mg by mouth twice daily., Disp: , Rfl: - omeprazole (PRILOSEC) 20 mg capsule, Take 20 mg by mouth twice daily., Disp: , Rfl: - primidone (MYSOLINE) 50 mg tablet, Take 50 mg by mouth daily with lunch. (noon), Disp: , Rfl: - topiramate (TOPAMAX) 100 mg tablet, Take 100 mg by mouth twice daily. (noon and at bedtime), Disp: , Rfl: - AIMOVIG AUTOINJECTOR 140 mg/mL syringe, Inject 140 mg subcutaneously once every month. , Disp: , Rfl: - venlafaxine ER (EFFEXOR XR) 75 mg 24 hr capsule, Take 75 mg by mouth once daily., Disp: , Rfl: , 01/15/2020 at Unknown time - tiotropium (SPIRIVA) 18 mcg inhalation capsule, Inhale 18 mcg as instructed once daily., Disp: , Rfl: , 01/15/2020 at Unknown time - levalbuterol (XOPENEX) 1.25 mg/3 mL nebulizer solution, Use 1 Ampule via nebulizer every 4 hours as needed., Disp: , Rfl: - calcitonin,salmon,synthe tic (CALCITONIN, SALMON, NASAL), Use 1 Inhalation in the nose once daily. (alternating nostrils every other day) , Disp: , Rfl: - tamsulosin ER (FLOMAX) 0.4 mg, Take 2 capsules by mouth at bedtime., Disp: 180 capsule, Rfl: 3, 01/15/2020 at Unknown time - DULoxetine (CYMBALTA) 60 mg capsule, Take 60 mg by mouth once daily., Disp: , Rfl: , 01/16/2020 at 0600 - primidone (MYSOLINE) 250 mg tablet, Take 250 mg by mouth daily at bedtime. , Disp: , Rfl: , 01/15/2020 at Unknown time - topiramate (TOPAMAX) 200 mg tablet, Take 200 mg by mouth twice daily. (in the morning and at 5PM) , Disp: , Rfl: , 01/16/2020 at 0600 - verapamil SR (CALAN SR, ISOPTIN SR) 120 mg CR tablet, Take 120 mg by mouth three times daily. , Disp: , Rfl: , 01/15/2020 at Unknown time - amLODIPine (NORVASC) 5 mg tablet, Take 5 mg by mouth once daily., Disp: , Rfl: , 01/16/2020 at 0600 - cloNIDine HCl (CATAPRES) 0.1 mg tablet, Take 0.1 mg by mouth twice daily before meals (0600/1600)., Disp: , Rfl: , 01/16/2020 at 0600 - nitrofurantoin monohydrate and macrocrystal (MACROBID) 100 mg capsule, TAKE 1 CAPSULE BY MOUTH EVERY DAY, Disp: 30 capsule, Rfl: 10, 01/16/2020 at 0600 - primidone (MYSOLINE) 50 mg tablet, Take 150 mg by mouth every morning. , Disp: , Rfl: , 01/15/2020 at Unknown time - amitriptyline (ELAVIL) 50 mg tablet, Take 50 mg by mouth daily at bedtime. , Disp: , Rfl: , 01/15/2020 at Unknown time - atorvastatin (LIPITOR) 40 mg tablet, Take 40 mg by mouth once daily. , Disp: , Rfl: , 01/15/2020 at Unknown time - FASENRA 30 mg/mL injection, Inject 30 mg subcutaneously every 8 weeks. Next one due 11/15/19 , Disp: , Rfl: , 11/15/19 - budesonide-formoterol (SYMBICORT) 160-4.5 mcg/actuation inhaler, Inhale 2 Puffs as instructed twice daily. , Disp: , Rfl: , 01/16/2020 at 0600 - gabapentin (NEURONTIN) 800 mg tablet, Take 800 mg by mouth four times daily. , Disp: , Rfl: , 01/16/2020 at 0600 - losartan (COZAAR) 100 mg tablet, Take 100 mg by mouth once daily. , Disp: , Rfl: , 01/16/2020 at 0600 - rizatriptan (MAXALT) 10 mg tablet, Take 10 mg by mouth as needed. , Disp: , Rfl: - fluticasone (FLONASE) 50 mcg/actuation nasal spray, Use 2 Sprays in each nostril once daily., Disp: 1 Bottle, Rfl: 11, 01/16/2020 at 0600 - montelukast (SINGULAIR) 10 mg tablet, Take 10 mg by mouth daily at bedtime., Disp: , Rfl: , 01/15/2020 at Unknown time - potassium chloride ER (K-DUR, KLOR-CON) 20 mEq tablet, Take 20 mEq by mouth four times daily. , Disp: , Rfl: , 01/15/2020 at Unknown time - spironolactone (ALDACTONE) 25 mg tablet, Take 25 mg by mouth once daily., Disp: , Rfl: , 01/15/2020 at Unknown time - celecoxib (CELEBREX) 200 mg capsule, Take 400 mg by mouth twice daily. , Disp: , Rfl: , 01/15/2020 at Unknown time - ALBUTEROL SULFATE (PROAIR HFA INHALATION), Inhale 2 Puffs as instructed every 4 hours as needed (shortness of breath). , Disp: , Rfl: , 01/15/2020 at Unknown time - levocetirizine (XYZAL) 5 mg tablet, Take 2.5 mg by mouth daily at bedtime. , Disp: , Rfl: - oxyCODONE IR (ROXICODONE) 5 mg immediate release tablet, Take 5 mg by mouth every 6 hours as needed., Disp: , Rfl: , Unknown at Unknown time ALLERGIES Allergen Reactions - Avocado Swelling - Baclofen Other: See Comments Dizziness and full body weakness - Candasartan [Other] Rash - Chocolate Unknown - Ciprofloxacin (Bulk) Anaphylaxis - Grass Pollen Unknown - Indocin [Indomethac* Rash - Ivp Dye [Iodine] Anaphylaxis - Penicillins Rash - Lima Oil Unknown - Propranolol Other: See Comments Severe low bp and kidneys shutting down. - Sulfa (Sulfonamide * Rash, Itching - Valium [Diazepam] Other: See Comments Depression COMPLETE REVIEW OF SYSTEMS: All other systems were reviewed and are otherwise negative, pertinent positives and negatives are noted in the HPI. Objective PHYSICAL EXAM: Physical Exam Performed: GENERAL: Alert, no distress, cooperative HEAD/SINUSES: No significant findings EYES: EOMI EARS: External ears normal NOSE: Nares normal. Septum midline. NECK: Large circumference LUNGS: Lungs clear CARDIAC: reg ABDOMEN: Abdomen soft EXTREMITIES: no swelling Neuro: resting tremor BP 93/68 Pulse 91 Temp (Src) 97.3 (Axillary) Resp 16 Ht 5' 10 (1.78m) Wt 220 lb (99.8kg) SpO2 99% BMI 31.57 kg/(m2). O2 Therapy: Nasal Cannula, Liters: 2 DATA: Diagnostic tests reviewed for today's visit: Most recent labs and imaging results. Assessment/Plan 59 yo M who underwent right total hip arthroplasty on 01/16/2020 # Obese # Suspect ANN PMH as noted above Patient is stable postoperatively. Pain control per orthopedic surgery We will continue to follow peripherally for any postop medical issues Medication and Non-Pharmacologic VTE Prophylaxis/Anticoagulan ts Anticoagulant AND Antiplatelet Medications (From admission, onward) Start Dose Route Frequency Ordered Stop 01/17/20 0900 enoxaparin 40 mg injection (LOVENOX) (Surgical Risk Categories ) 40 mg SUBCUTANEOUS DAILY 01/16/20 1333 -- 01/16/20 1330 pneumatic compression stockings (nv,oh) VTE Prophylaxis: SIGNATURE: Lauren Underwood DO PATIENT NAME: Velia Bagley DATE: January 16, 2020 TIME: 8:04 PM PAGER/CONTACT #: [facility] OPERATIVE NOon 01-16-2020 OPERATIVE NO HNO ID: [id number] Author: Hiral Castaneda Service: Orthopaedic Surgery Author Type: Physician Type: Operative Report Filed: 01/16/2020 3:30 PM Note Text: OPERATIVE REPORT TOTAL HIP ARTHROPLASTY LOG ID: [id number] Surgery/Procedure Date: 01/16/2020 Incision/Procedure Start Time: 11:50 AM Incision Close/Procedure End Time: 1:39 PM Surgeon(s)/Proceduralist (s) and Silk Brusher(s): Surgeon(s) and Role: * Hiral Castaneda - Primary * Sally De Leon - Resident - Assisting Sizer Machine: Melissa Keenan SA Procedure(s): Procedure(s) (LRB): ARTHROPLASTY TOTAL HIP CONVERSION AFTER PREVIOUS HIP SURG (Right) REMOVAL HARDWARE FEMUR (Right) Anesthesia: General Clinical note: This 59-year-old gentleman with multiple medical comorbidities had a right femoral neck fracture treated by anatomic reduction and percutaneous screw fixation 3 months ago. He had been making an adequate postoperative recovery but did suffer a second fall and developed increasing pain and displacement of his fracture. This was confirmed by CT scan. He was offered and consented to conversion to total hip arthroplasty. Procedure Details: Patient was brought to the operating room where general endotracheal anesthesia was administered. Patient was turned to the left lateral decubitus position and fixed into the pelvic yan. Pressure points were well-padded. The right hip and leg were identified with an appropriate timeout, prepped and draped in a sterile orthopedic fashion. We utilized a posterior lateral Kocherr Langenbach approach incorporating his old incision. Sharp dissection was carried out down to fascia jacob. Fascia jacob and the fascia of gluteus karen were incised and karen muscle fibers digitally dissected. We excised a large amount of scarred trochanteric bursa and scar over the vastus lateralis at the point of his screw insertion site. The interval between the abductors and iliac wing was identified. A Cobra retractor was placed over the dome of the ilium to retract the abductors anteriorly. We internally rotated the hip. We then incised capsule and the short external rotators posteriorly off the trochanter in a full-thickness flap. This was carried down into the joint where there is a moderate amount of clear synovial fluid. Scarring and healing callus were noted around the femoral neck. We released the capsule superiorly up to the dome of the ilium and inferiorly down to the level of the lesser trochanter. At this point the hip was mobile. There was obvious motion at the fracture site. We were able to easily dislocate the hip as a unit.. Once we were able to dislocate the hip we then removed the three 7.5 cannulated screws. The remaining stump of the femoral neck was then rotated into the wound. A freshening neck cut was made utilizing the osteotomy guide. Corkscrew was then used to remove the fragmented femoral head. Capsule was released and labrum removed until the acetabulum was completely exposed. We then prepared the acetabulum with reamers. Had a good bleeding subchondral surface at 55 mm and we impacted a 56 mm component in appropriate position with a good fit. Trial liner was then placed. The femur was then exposed with retractors. Intramedullary callus was removed with curettes and rongeur. Cookie cutter was then used followed by a knotter hand to open the canal. We then proceeded with conical reaming until we had good cortical contact at 14.5 mm. We then broached proximally with the SOLOMON system and we seated the size 14 broach. Trial reduction was performed with a high offset neck standard head. We had a very stable range of motion and clinical bahai of his leg length. Intraoperative radiographs were obtained which confirmed appropriate implant position, fit and fill. Trials were then removed. On the acetabular side the 36 mm cross-link polyethylene liner was locked in. On the femoral side the canal was irrigated and dried and the high offset size 14 one-piece Solomon stem was impacted. Proximal femur was inspected and found to be intact. Trial reductions were again performed and we chose the -3 neck length. The trunion was cleaned and dried and the 36 mm ceramic -3 head was applied. Acetabulum was irrigated cleaned and the hip reduced a final time. A final assessment was made for range of motion and stability with no changes being noted. The wound was then soaked with dilute Betadine. The wound was then irrigated and a final check made for hemostasis. The periarticular tissues were then infiltrated with 30 cc of 0.25% Marcaine with epinephrine. Hip capsule was then closed with #1 Ethibond [id number] sutures. Piriformis tendon and obturator internus tendons were returned of hip abductor mechanism with a vertical Ethibond suture. Fascia jacob was closed with #1 Ethibond. Fascia jacob and the fascia was karen was then oversewn with a running #2 Quill closing in a watertight fashion. Layered subcutaneous closure was performed with Monocryl for skin followed by Steri-Strips and an Aquacel waterproof dressing. He was immobilized with a knee immobilizer and turned to the supine position. Extubated and sent to the recovery room in satisfactory condition having tolerated the procedure well. Clindamycin and vancomycin were given preoperatively intravenously as antibiotic prophylaxis. TXA was given for hemostasis. 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 Item Serial No. Animal Care Provider Lot No. LRB No. Used Action HEAD G7 36MM BIOLOX DELTA FEMORAL HIP - [id number] Joint - Hip HEAD G7 36MM BIOLOX DELTA FEMORAL HIP [employer] [id number] Right 1 Implanted BIOLOX IMP HIP FEM HD CERAM [id number] Implant [employer] [id number] Right 1 Implanted 14mm High Offset Taper 175mm Broached 1 Piece Revision Sterile Implant [id number] Right 1 Implanted LINER G7 36MM E E1 ACETABULAR HIGH WALL HIP - [id number] Joint - Hip LINER G7 36MM E E1 ACETABULAR HIGH WALL HIP [employer] [id number] Right 1 Implanted G7 52mm E OFFSET HEMISPHERE OSSEOTI ACETABULAR 3 HOLE LIMIT HIP Implant [employer] [id number] Right 1 Implanted Bearing Surface: Ceramic on Poly Fixation: Cementless Drains: None Complications: None, patient tolerated procedure well. Participation in Procedure: I/primary surgeon/proceduralist performed the procedure with assistance. SIGNATURE: Hiral Castaneda MD PATIENT NAME: Velia Bagley DATE: January 16, 2020 TIME: 3:14 PM PAGER/CONTACT #: [facility] PLAN OF CAREon 01-16-2020 PLAN OF CARE HNO ID: [id number] Author: Leonidas Mercado (Pharmacist) Service: Pharmacy Author Type: Pharmacist Type: Plan of Care Filed: 01/16/2020 9:14 PM Note Text: MEDICATION HISTORY AND MEDICATION RECONCILIATION Patient Name:Kathe Bagley : 1960 Source of history:Patient: Reliability of source: patient drowsy; imperfect source, Pharmacy records: [facility] and [facility] Medication Nonadherence Identified: No barriers noted The above information represents the best possible medication history: Yes Reconciliation completed? Yes All IT SPECIALIST medications addressed by LIP Additional comments: ? Spoke with patient, briefly, and reviewed dispensing data of [facility] Pharmacy ? Patient states he receives all prescription medications from [facility] pharmacy ? Spoke with pharmacist at [facility] ? Reviewed patient supplied medication list, which was a copy of an [employer] [facility] dated 01-02-20 ? Patient is very drowsy, unable to recall most of his meds, refers me to [facility] for current and accurate med history ? Confirmed patient now using Symbicort, Spiriva Respimat, and albuterol as his breathing inhalers, no longer using Incruse ? Confirm patient now using omeprazole as 20 mg twice daily ? Confirmed verapamil is used as 120mg ER tablet once daily, replacing amlodipine ? [facility] patient losing primidone as 150 mg daily at 7 AM, 50 mg daily at noon, and 250 mg at bedtime ? [facility] states patient now using topiramate as 200 mg every morning, 100 mg at noon, 200 mg at 5 PM, and 100 mg at bedtime ? Patient is able to confirm both primidone and topiramate doses to make ? Confirmed levocetirizine dose as 2.5 mg once daily at bedtime Messaged Dr. Castaneda about these findings [id number] Medication List Adjustments: Medication Regimen Changes: Primidone clarified as 150 mg daily at 7 AM, 50 mg daily at noon, and 250 mg at bedtime Topiramate clarified as200 mg every morning, 100 mg at noon, 200 mg at 5 PM, and 100 mg at bedtime ,Omeprazole changed from 20 mg once daily to 20 mg twice daily Albuterol inhaler clarified is 2 puffs by mouth every 4 hours as needed Medications Added: Medications Removed: Incruse Ellipta inhaler Mupirocin 2% ointment to nostrils Short-Term Medications: Further Clarification Required: Patient is a 30 day readmission: No Patient Interested in Bedside Delivery: Yes Time Spent Reviewing Patient's Medications: 45 minutes Allergies: ALLERGIES Allergen Reactions - Avocado Swelling - Baclofen Other: See Comments Dizziness and full body weakness - Candasartan [Other] Rash - Chocolate Unknown - Ciprofloxacin (Bulk) Anaphylaxis - Grass Pollen Unknown - Indocin [Indomethac* Rash - Ivp Dye [Iodine] Anaphylaxis - Penicillins Rash - Lima Oil Unknown - Propranolol Other: See Comments Severe low bp and kidneys shutting down. - Sulfa (Sulfonamide * Rash, Itching - Valium [Diazepam] Other: See Comments Depression Preferred Pharmacy: [facility] . 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 Yes omeprazole (PRILOSEC) 20 mg capsule Take 20 mg by mouth twice daily. Yes primidone (MYSOLINE) 50 mg tablet Take 50 mg by mouth daily with lunch. (noon) Yes topiramate (TOPAMAX) 100 mg tablet Take 100 mg by mouth twice daily. (noon and at bedtime) Yes AIMOVIG AUTOINJECTOR 140 mg/mL syringe Inject 140 mg subcutaneously once every month. Yes venlafaxine ER (EFFEXOR XR) 75 mg 24 hr capsule Take 75 mg by mouth once daily. 01/15/2020 at Unknown time Yes tiotropium (SPIRIVA) 18 mcg inhalation capsule Inhale 18 mcg as instructed once daily. 01/15/2020 at Unknown time Yes levalbuterol (XOPENEX) 1.25 mg/3 mL nebulizer solution Use 1 Ampule via nebulizer every 4 hours as needed. Yes calcitonin,salmon,synthe tic (CALCITONIN, SALMON, NASAL) Use 1 Inhalation in the nose once daily. (alternating nostrils every other day) Yes tamsulosin ER (FLOMAX) 0.4 mg Take 2 capsules by mouth at bedtime. 01/15/2020 at Unknown time Yes DULoxetine (CYMBALTA) 60 mg capsule Take 60 mg by mouth once daily. 01/16/2020 at 0600 Yes primidone (MYSOLINE) 250 mg tablet Take 250 mg by mouth daily at bedtime. 01/15/2020 at Unknown time Yes topiramate (TOPAMAX) 200 mg tablet Take 200 mg by mouth twice daily. (in the morning and at 5PM) 01/16/2020 at 0600 Yes verapamil SR (CALAN SR, ISOPTIN SR) 120 mg CR tablet Take 120 mg by mouth three times daily. 01/15/2020 at Unknown time Yes cloNIDine HCl (CATAPRES) 0.1 mg tablet Take 0.1 mg by mouth twice daily before meals (0600/1600). 01/16/2020 at 0600 Yes nitrofurantoin monohydrate and macrocrystal (MACROBID) 100 mg capsule TAKE 1 CAPSULE BY MOUTH EVERY DAY 01/16/2020 at 0600 Yes primidone (MYSOLINE) 50 mg tablet Take 150 mg by mouth every morning. 01/15/2020 at Unknown time Yes amitriptyline (ELAVIL) 50 mg tablet Take 50 mg by mouth daily at bedtime. 01/15/2020 at Unknown time Yes atorvastatin (LIPITOR) 40 mg tablet Take 40 mg by mouth once daily. 01/15/2020 at Unknown time Yes FASENRA 30 mg/mL injection Inject 30 mg subcutaneously every 8 weeks. Next one due 11/15/19 11/15/19 Yes budesonide-formoterol (SYMBICORT) 160-4.5 mcg/actuation inhaler Inhale 2 Puffs as instructed twice daily. 01/16/2020 at 0600 Yes gabapentin (NEURONTIN) 800 mg tablet Take 800 mg by mouth four times daily. 01/16/2020 at 0600 Yes losartan (COZAAR) 100 mg tablet Take 100 mg by mouth once daily. 01/16/2020 at 0600 Yes rizatriptan (MAXALT) 10 mg tablet Take 10 mg by mouth as needed. Yes fluticasone (FLONASE) 50 mcg/actuation nasal spray Use 2 Sprays in each nostril once daily. 01/16/2020 at 0600 Yes montelukast (SINGULAIR) 10 mg tablet Take 10 mg by mouth daily at bedtime. 01/15/2020 at Unknown time Yes potassium chloride ER (K-DUR, KLOR-CON) 20 mEq tablet Take 20 mEq by mouth four times daily. 01/15/2020 at Unknown time Yes spironolactone (ALDACTONE) 25 mg tablet Take 25 mg by mouth once daily. 01/15/2020 at Unknown time Yes celecoxib (CELEBREX) 200 mg capsule Take 400 mg by mouth twice daily. 01/15/2020 at Unknown time Yes ALBUTEROL SULFATE (PROAIR HFA INHALATION) Inhale 2 Puffs as instructed every 4 hours as needed (shortness of breath). 01/15/2020 at Unknown time Yes levocetirizine (XYZAL) 5 mg tablet Take 2.5 mg by mouth daily at bedtime. oxyCODONE IR (ROXICODONE) 5 mg immediate release tablet Take 5 mg by mouth every 6 hours as needed. Unknown at Unknown time LEONIDAS MERCADO, PHARMACIST January 16, 2020 7:19 PM [facility] PT EDon 01-16-2020 PT ED HNO ID: [id number] Author: Yesi (Rn) BULL Flower Service: Nursing Author Type: Registered Nurse Type: Patient Education Filed: 01/16/2020 9:48 AM Note Text: PRE OP LEARNING ASSESSMENT PROCEDURE/SURGERY: READINESS TO LEARN COGNITIVE ABILITY: Alert and oriented MOTIVATION TO LEARN: Interested FAMILY SUPPORT: High - Very involved in pt care PATIENT LEARNS BEST BY: Individual Instruction FACTORS AFFECTING LEARNING: None PHYSICAL LIMITATIONS AFFECTING LEARNING: None Electronically Signed By: Yesi Flower RN In Department: [place] SURGERY OR [facility] Surgical Tissue Examon 01-15 Surgical Tissue Exam Test performed at [place] [address] NAME: VELIA BAGLEY REQUESTING: HIRAL CASTANEDA M.D. FINAL DIAGNOSIS: FEMORAL HEAD, RIGHT, RESECTION - CHANGES COMPATIBLE WITH FRACTURE SITE. 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 The articular surface demonstrates areas of roughening but no eburnation. No osteophytes are present. Sectioning reveals hemorrhagic bone with no subchondral cyst identified. No necrosis is identified. There is a scant amount of cabrera rubbery tissue attached. Public Health Doctor sections are submitted as follows: A1 - rubbery tissue. A2 - bone after decalcification. JIE/ade ZABALA M.D., PATHOLOGIST (Electronic signature on file) Signed out: 01/20/2020 08:47 PRINTED: 2020 Page 1 of 1 [facility] Comment on above: Performed By: #### U RIN2 #### [place] [address] THERAPY NTon 01-16-2020 THERAPY NT HNO ID: [id number] Author: Rosemarie (Pt) Matt Service: Physical Therapy Author Type: Physical Therapist Type: Therapy (PT/OT/Speech/Resp) Filed: 01/16/2020 4:13 PM Note Text: PHYSICAL THERAPY MISSED VISIT SERVICE DATE: 01/16/2020 SERVICE TIME: 1611 to 1611 ROOM: [facility] (01) Attempted Evaluation. Patient not seen due to (patient was too groggy still from surgery). He was unable to keep his eyes open, nor could he answer questions appropriately. SIGNATURE: Rosemarie Gutierrez PT PATIENT NAME: Velia Bagley DATE: January 16, 2020 TIME: 4:11 PM [facility] XR FEMUR DISTAL 2V AP/LAT RT on 01-16-2020 XR FEMUR DISTAL 2V AP/LAT RT Final Report DATE OF EXAM: Jan 16 2020 3:28PM [id number] - XR FEMUR DISTAL 2V AP/LAT RT / PROCEDURE REASON: Post-operative / post-procedure assessment, asymptomatic Physician Interpretation HISTORY: Post-operative / post-procedure assessment, asymptomatic COMPARISON: None. AP single view pelvis and 2 views of the right femur: Post surgical changes are noted status post right total hip arthroplasty. The hip prosthesis appears intact. Air is noted in the soft tissues adjacent to the right hip consistent with recent surgery. IMPRESSION: Status post right total hip arthroplasty without acute fracture or hardware complication. Criminalist Technician: HOLLY Transcribe Date/Time: Jan 16 2020 3:35P Dictated by : RICH BORJAS MD This examination was interpreted and the report reviewed and electronically signed by: RICH BORJAS MD on Jan 16 2020 3:38PM EST [facility] XR HIP 1V RTon 01-16-2020 XR HIP 1V RT Final Report DATE OF EXAM: Jan 16 2020 2:23PM [id number] - XR HIP 1V RT / PROCEDURE REASON: TOTAL HIP REPLACEMENT Physician Interpretation EXAM TITLE: INTRAOPERATIVE VIEWS OF THE RIGHT HIP. DATE: 01/16/2020 COMPARISON: 10/17/2019 CLINICAL INDICATION/HISTORY: The patient is a 59-year-old male who is undergoing right total hip arthroplasty.. TECHNIQUE: 2 portable views of the right hip are presented. FINDINGS: The patient is undergoing right total hip arthroplasty. Note is made of the presence of a sizing prostheses. There is no evidence of fracture. IMPRESSION: 1. Intraoperative images as described above. Criminalist Technician: [facility] Transcribe Date/Time: Jan 16 2020 2:46P Dictated by : MILDRED LEOS MD This examination was interpreted and the report reviewed and electronically signed by: MILDRED LEOS MD on Jan 16 2020 2:49PM EST [facility] XR PELVIS 1V APon 01-16-2020 XR PELVIS 1V AP Final Report DATE OF EXAM: Jan 16 2020 3:28PM [id number] - XR PELVIS 1V AP / PROCEDURE REASON: Post-operative / post-procedure assessment, asymptomatic Physician Interpretation HISTORY: Post-operative / post-procedure assessment, asymptomatic COMPARISON: None. AP single view pelvis and 2 views of the right femur: Post surgical changes are noted status post right total hip arthroplasty. The hip prosthesis appears intact. Air is noted in the soft tissues adjacent to the right hip consistent with recent surgery. IMPRESSION: Status post right total hip arthroplasty without acute fracture or hardware complication. [facility] Transcribe Date/Time: Jan 16 2020 3:35P Dictated by : RICH BORJAS MD This examination was interpreted and the report reviewed and electronically signed by: RICH BORJAS MD on Jan 16 2020 3:38PM EST [facility] CNOVon 01-10-2020 CNOV Office Visit (AGPOB1 ) -------- VELIA BAGLEY ([id number]) 1960 M Date Time Provider Department 01/10/20 3:30 PM HIRAL CASTANEDA AGPOB1 During your visit today, we recorded the following information about you: Respiration Weight Height 18/minute 99.8 kg 1.778 m Hiral Castaneda MD 01/11/2020 9:11 AM Signed ORTHOPAEDIC OFFICE NOTE HISTORY OF PRESENT ILLNESS: Velia Bagley is a 59 year old male who presents for follow-up of his right femoral neck fracture. No recent injury or falls. However having increasing pain in the groin and thigh region. Underwent his recent CT scan. Reviewed nursing note and current pain scale. 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 Multiple blood clots before (3-4). - Hypertension Mother - Heart Failure Father 72 of CHF. 2 OR before that - Parkinson?s Disease Father 68 - Prostate Cancer Brother - Parkinson?s Disease Paternal Grandfather - Diabetes No Family History Social History Tobacco Use - Smoking status: Never Smoker - Smokeless tobacco: Never Used - Tobacco comment: second hand smoke from father. Substance Use Topics - Alcohol use: No - Drug use: No MEDICATIONS: Current Outpatient Medications Medication Sig - [START ON 01/11/2020] mupirocin (BACTROBAN) 2 % ointment Apply to nasal opening 3 times daily for 5 days before surgery - tamsulosin ER (FLOMAX) 0.4 mg Take 2 capsules by mouth at bedtime. - DULoxetine (CYMBALTA) 60 mg capsule Take 60 mg by mouth once daily. - oxyCODONE IR (ROXICODONE) 5 mg immediate release tablet Take 5 mg by mouth every 6 hours as needed. - primidone (MYSOLINE) 250 mg tablet Take 250 mg by mouth four times daily. 350mg Tab in morning and 1 Tab in the afternoon 50 Mg and 250Mg at dinner - topiramate (TOPAMAX) 200 mg tablet Take 200 mg by mouth twice daily. - verapamil (CALAN, ISOPTIN) 120 mg tablet Take 120 mg by mouth three times daily. - amLODIPine (NORVASC) 5 mg tablet Take 5 mg by mouth once daily. - cloNIDine HCl (CATAPRES) 0.1 mg tablet Take 0.1 mg by mouth twice daily before meals (0600/1600). - umeclidinium (INCRUSE ELLIPTA) 62.5 mcg/actuation inhaler Inhale 1 Puff as instructed once daily. - nitrofurantoin monohydrate and macrocrystal (MACROBID) 100 mg capsule TAKE 1 CAPSULE BY MOUTH EVERY DAY - primidone (MYSOLINE) 50 mg tablet Take 250 mg by mouth daily at bedtime. - amitriptyline (ELAVIL) 100 mg tablet Take 50 mg by mouth daily at bedtime. - atorvastatin (LIPITOR) 20 mg tablet Take 40 mg by mouth once daily. - FASENRA 30 mg/mL injection Inject 30 mg subcutaneously every 8 weeks. Next one due 11/15/19 - budesonide-formoterol (SYMBICORT) 160-4.5 mcg/actuation inhaler Inhale 2 Puffs as instructed twice daily. - gabapentin (NEURONTIN) 300 mg capsule Take 800 mg by mouth four times daily. - losartan (COZAAR) 100 mg tablet Take 100 mg by mouth once daily. - rizatriptan (MAXALT) 10 mg tablet Take 10 mg by mouth as needed. - NASAL ALLERGY 55 mcg nasal inhaler - fluticasone (FLONASE) 50 mcg/actuation nasal spray Use 2 Sprays in each nostril once daily. - omeprazole (PRILOSEC) 20 mg capsule Take 1 capsule by mouth daily before dinner. 30 MINUTES BEFORE DINNER. (Patient taking differently: Take 20 mg by mouth twice daily. 30 MINUTES BEFORE DINNER. ) - montelukast (SINGULAIR) 10 mg tablet Take 10 mg by mouth daily at bedtime. - potassium chloride ER (K-DUR, KLOR-CON) 20 mEq tablet Take 20 mEq by mouth four times daily. - spironolactone (ALDACTONE) 25 mg tablet Take 25 mg by mouth once daily. - celecoxib (CELEBREX) 200 mg capsule Take 200 mg by mouth four times daily. - ALBUTEROL SULFATE (PROAIR HFA INHALATION) Inhale 2 Puffs as instructed. Prn SOB - topiramate (TOPAMAX) 100 mg tablet 2 in am, 1 at noon, 1 at evening and 2 at bedtime (600 mg/day total) (Patient taking differently: 100 mg. 1 in am, 1 at bedtime (600 mg/day total) ) No current facility-administered medications for this visit. ALLERGIES: ALLERGIES Allergen Reactions - Avocado Swelling - Baclofen Other: See Comments Dizziness and full body weakness - Candasartan [Other] Rash - Chocolate Unknown - Ciprofloxacin (Bulk) Anaphylaxis - Grass Pollen Unknown - Indocin [Indomethac* Rash - Iodine Anaphylaxis - Penicillins Rash - Lima Oil Unknown - Propranolol Other: See Comments Severe low bp and kidneys shutting down. - Sulfa (Sulfonamide * Rash, Itching - Valium [Diazepam] Other: See Comments Depression REVIEW OF SYSTEMS: GENERAL: Well developed, well nourished. No acute distress PAIN: Pain Right hip CARDIOVASCULAR: Negative for chest pain, leg swelling and palpations. MSK: joint pain Right hip SKIN: Negative for lesions, rash, itching, metal sensitivity NEURO: Negative for seizure, trauma, numbness/tingling of extremities. ENDOCRINE: Negative for Diabetes Type 1 and Type 2 HEMATOLOGY: Negative for excessive bleeding, clots, bleeding disorders. PHYSICAL EXAMINATION: Resp 18 Ht 5' 10 (1.78m) Wt 220 lb (99.8kg) BMI 31.57 kg/(m2). General Appearance: Well appearing, alert, in no acute distress, well-hydrated, well nourished. and Obese Skin: Skin color, texture, turgor normal, no suspicious rashes or lesions, Incisions well healed. Extremities: Walks with an antalgic gait. Has pain on resisted hip flexion, abduction and abduction. Has 2 cm of shortening on that right side. Pain on range of motion. IMAGES: I ordered, obtained and interpreted today AP pelvis for follow-up of his femoral neck fracture. Compared to previous radiographs shows progressive impaction and varus deformity. He now has light extrusion of the superior screw. 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 No other acute changes. ASSESSMENT AND PLAN: 1. Closed fracture of right hip with nonunion, subsequent encounter - ICD9: 733.82, ICD10: S72.001K Functional Plan: I reviewed his radiographic findings. At this point he's develop hardware protuberance. Progressive deformity. He is in need of revision surgery. I discussed with him the risks, benefits expected postoperative recovery of hardware removal and insertion total hip arthroplasty. Discussed the usual postoperative recovery. Discussed with him the urgent need for surgery given his pain and progressive deformity. We also discussed the COVID risk. Particularly in light of his asthma. He verbalized good understanding. I reviewed things with him utilizing some literature. All questions were answered to his apparent satisfaction and written consent was obtained. He'll continue to use his walker. We'll leave it open for him to call if any sure arise preoperatively. Return in about 22 days (around 02/01/2020). Hiral Castaneda MD The patient was offered a surgery/procedure at a [facility]. The surgeon/proceduralist and patient have discussed in detail the risk of exposure to and/or potential harm posed by the COVID-19 virus with having a surgery/procedure at this time versus the risk of delaying the surgery/procedure. It is not possible to know either the risk of delaying the surgery or procedure or chance of getting an infection with perfect accuracy, but a joint decision was made between the patient and the surgeon/proceduralist to proceed at this time with the scheduled surgery/procedure as indicated on the consent form. Referring Provider: RACHEL RAYO [[id number]] Allergies As of Date: 01/10/2020 Noted Allergy Reaction AVOCADO 04/26/2018 7 - Swelling BACLOFEN 02/19/2018 14 - Other: See Comments Comments: Dizziness and full body weakness Candasartan [Other] 08/19/2007 2 - Rash CHOCOLATE 05/17/2018 16 - Unknown CIPROFLOXACIN (BULK) 06/10/2016 10 - Anaphylaxis GRASS POLLEN 04/26/2018 16 - Unknown INDOCIN (INDOMETHACIN SODIUM) 07/24/2006 2 - Rash IODINE 07/24/2006 10 - Anaphylaxis PENICILLINS 07/24/2006 2 - Rash PINE OIL 04/26/2018 16 - Unknown PROPRANOLOL 14 - Other: See Comments Comments: Severe low bp and kidneys shutting down. SULFA (SULFONAMIDE ANTIBIOTICS) 09/02/2017 2 - Rash 9 - Itching VALIUM (DIAZEPAM) 06/15/2017 14 - Other: See Comments Comments: Depression Date Reviewed: 01/10/2020 Reviewed by: Jessica Pacheco) Little - Fully Assessed Reason for Visit: Follow Up [171] Cmt: Pt states he is having right hip pain Established Patient [175] Follow Up [171] Reason For Visit History Recorded Primary Visit Diagnosis:Closed fracture of right hip with nonunion, subsequent encounter [S72.001K] Order(s):XR PELVIS 1V AP [[id number]] Order #: [id number] Prescriptions as of 01/10/2020 Sig: AIMOVIG AUTOINJECTOR 140 MG/M* VENLAFAXINE ER 75 MG CAPSULE,* Take 75 mg by mouth once lamont* LEVOCETIRIZINE 5 MG TABLET Take 5 mg by mouth. TIOTROPIUM BROMIDE 18 MCG CAP* Inhale 18 mcg as instructed o* LEVALBUTEROL 1.25 MG/3 ML CAYLA* Use 1 Ampule via nebulizer ev* CALCITONIN (SALMON) NASAL Use in the nose. MUPIROCIN 2 % TOPICAL OINTMENT Apply to nasal opening 3 time* TAMSULOSIN 0.4 MG CAPSULE Take 2 capsules by mouth at b* DULOXETINE 60 MG CAPSULE,TUCKER* Take 60 mg by mouth once lamont* OXYCODONE 5 MG TABLET Take 5 mg by mouth every 6 ho* PRIMIDONE 250 MG TABLET Take 250 mg by mouth four nani* TOPIRAMATE 200 MG TABLET Take 200 mg by mouth twice da* VERAPAMIL 120 MG TABLET Take 120 mg by mouth three ti* AMLODIPINE 5 MG TABLET Take 5 mg by mouth once daily. CLONIDINE HCL 0.1 MG TABLET Take 0.1 mg by mouth twice da* NITROFURANTOIN MONOHYDRATE AND * TAKE 1 CAPSULE BY MOUTH EVERY* PRIMIDONE 50 MG TABLET Take 250 mg by mouth daily at* AMITRIPTYLINE 100 MG TABLET Take 50 mg by mouth daily at * ATORVASTATIN 20 MG TABLET Take 40 mg by mouth once lamont* FASENRA 30 MG/ML SUBCUTANEOUS* Inject 30 mg subcutaneously e* BUDESONIDE-FORMOTEROL HFA 160* Inhale 2 Puffs as instructed * GABAPENTIN 300 MG CAPSULE Take 800 mg by mouth four nani* LOSARTAN 100 MG TABLET Take 100 mg by mouth once kalyan* RIZATRIPTAN 10 MG TABLET Take 10 mg by mouth as needed* FLUTICASONE PROPIONATE 50 MCG* Use 2 Sprays in each nostril * OMEPRAZOLE 20 MG CAPSULE,TUCKER* Take 1 capsule by mouth daily* Patient taking differently: Take 20 mg by mouth twice kalyan* MONTELUKAST 10 MG TABLET Take 10 mg by mouth daily at * POTASSIUM CHLORIDE ER 20 MEQ * Take 20 mEq by mouth four nani* SPIRONOLACTONE 25 MG TABLET Take 25 mg by mouth once lamont* CELECOXIB 200 MG CAPSULE Take 200 mg by mouth four nani* PROAIR HFA INHALATION Inhale 2 Puffs as instructed.* TOPIRAMATE 100 MG TABLET 2 in am, 1 at noon, 1 at even* Patient taking differently: 100 mg. 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 Closed displaced fracture of right femoral neck*10/16/2019 Disposition: Return in about 22 days (around 02/01/2020). Follow-up and Disposition History Recorded Encounter Status:Closed by HIRAL CASTANEDA MD on 01/11/20 [facility] PROGRESSon 01-10-2020 PROGRESS HNO ID: [id number] Author: Hiral Castaneda Service: ? Author Type: Physician Type: Progress Notes Filed: 01/11/2020 9:11 AM Note Text: ORTHOPAEDIC OFFICE NOTE HISTORY OF PRESENT ILLNESS: Velia Bagley is a 59 year old male who presents for follow-up of his right femoral neck fracture. No recent injury or falls. However having increasing pain in the groin and thigh region. Underwent his recent CT scan. Reviewed nursing note and current pain scale. 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 Multiple blood clots before (3-4). - Hypertension Mother - Heart Failure Father 72 of CHF. 2 OR before that - Parkinson?s Disease Father 68 - Prostate Cancer Brother - Parkinson?s Disease Paternal Grandfather - Diabetes No Family History Social History Tobacco Use - Smoking status: Never Smoker - Smokeless tobacco: Never Used - Tobacco comment: second hand smoke from father. Substance Use Topics - Alcohol use: No - Drug use: No MEDICATIONS: Current Outpatient Medications Medication Sig - [START ON 01/11/2020] mupirocin (BACTROBAN) 2 % ointment Apply to nasal opening 3 times daily for 5 days before surgery - tamsulosin ER (FLOMAX) 0.4 mg Take 2 capsules by mouth at bedtime. - DULoxetine (CYMBALTA) 60 mg capsule Take 60 mg by mouth once daily. - oxyCODONE IR (ROXICODONE) 5 mg immediate release tablet Take 5 mg by mouth every 6 hours as needed. - primidone (MYSOLINE) 250 mg tablet Take 250 mg by mouth four times daily. 350mg Tab in morning and 1 Tab in the afternoon 50 Mg and 250Mg at dinner - topiramate (TOPAMAX) 200 mg tablet Take 200 mg by mouth twice daily. - verapamil (CALAN, ISOPTIN) 120 mg tablet Take 120 mg by mouth three times daily. - amLODIPine (NORVASC) 5 mg tablet Take 5 mg by mouth once daily. - cloNIDine HCl (CATAPRES) 0.1 mg tablet Take 0.1 mg by mouth twice daily before meals (0600/1600). - umeclidinium (INCRUSE ELLIPTA) 62.5 mcg/actuation inhaler Inhale 1 Puff as instructed once daily. - nitrofurantoin monohydrate and macrocrystal (MACROBID) 100 mg capsule TAKE 1 CAPSULE BY MOUTH EVERY DAY - primidone (MYSOLINE) 50 mg tablet Take 250 mg by mouth daily at bedtime. - amitriptyline (ELAVIL) 100 mg tablet Take 50 mg by mouth daily at bedtime. - atorvastatin (LIPITOR) 20 mg tablet Take 40 mg by mouth once daily. - FASENRA 30 mg/mL injection Inject 30 mg subcutaneously every 8 weeks. Next one due 11/15/19 - budesonide-formoterol (SYMBICORT) 160-4.5 mcg/actuation inhaler Inhale 2 Puffs as instructed twice daily. - gabapentin (NEURONTIN) 300 mg capsule Take 800 mg by mouth four times daily. - losartan (COZAAR) 100 mg tablet Take 100 mg by mouth once daily. - rizatriptan (MAXALT) 10 mg tablet Take 10 mg by mouth as needed. - NASAL ALLERGY 55 mcg nasal inhaler - fluticasone (FLONASE) 50 mcg/actuation nasal spray Use 2 Sprays in each nostril once daily. - omeprazole (PRILOSEC) 20 mg capsule Take 1 capsule by mouth daily before dinner. 30 MINUTES BEFORE DINNER. (Patient taking differently: Take 20 mg by mouth twice daily. 30 MINUTES BEFORE DINNER. ) - montelukast (SINGULAIR) 10 mg tablet Take 10 mg by mouth daily at bedtime. - potassium chloride ER (K-DUR, KLOR-CON) 20 mEq tablet Take 20 mEq by mouth four times daily. - spironolactone (ALDACTONE) 25 mg tablet Take 25 mg by mouth once daily. - celecoxib (CELEBREX) 200 mg capsule Take 200 mg by mouth four times daily. - ALBUTEROL SULFATE (PROAIR HFA INHALATION) Inhale 2 Puffs as instructed. Prn SOB - topiramate (TOPAMAX) 100 mg tablet 2 in am, 1 at noon, 1 at evening and 2 at bedtime (600 mg/day total) (Patient taking differently: 100 mg. 1 in am, 1 at bedtime (600 mg/day total) ) No current facility-administered medications for this visit. ALLERGIES: ALLERGIES Allergen Reactions - Avocado Swelling - Baclofen Other: See Comments Dizziness and full body weakness - Candasartan [Other] Rash - Chocolate Unknown - Ciprofloxacin (Bulk) Anaphylaxis - Grass Pollen Unknown - Indocin [Indomethac* Rash - Iodine Anaphylaxis - Penicillins Rash - Lima Oil Unknown - Propranolol Other: See Comments Severe low bp and kidneys shutting down. - Sulfa (Sulfonamide * Rash, Itching - Valium [Diazepam] Other: See Comments Depression REVIEW OF SYSTEMS: GENERAL: Well developed, well nourished. No acute distress PAIN: Pain Right hip CARDIOVASCULAR: Negative for chest pain, leg swelling and palpations. MSK: joint pain Right hip SKIN: Negative for lesions, rash, itching, metal sensitivity NEURO: Negative for seizure, trauma, numbness/tingling of extremities. ENDOCRINE: Negative for Diabetes Type 1 and Type 2 HEMATOLOGY: Negative for excessive bleeding, clots, bleeding disorders. PHYSICAL EXAMINATION: Resp 18 Ht 5' 10 (1.78m) Wt 220 lb (99.8kg) BMI 31.57 kg/(m2). General Appearance: Well appearing, alert, in no acute distress, well-hydrated, well nourished. and Obese Skin: Skin color, texture, turgor normal, no suspicious rashes or lesions, Incisions well healed. Extremities: Walks with an antalgic gait. Has pain on resisted hip flexion, abduction and abduction. Has 2 cm of shortening on that right side. Pain on range of motion. IMAGES: I ordered, obtained and interpreted today AP pelvis for follow-up of his femoral neck fracture. Compared to previous radiographs shows progressive impaction and varus deformity. He now has light extrusion of the superior screw. 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 No other acute changes. ASSESSMENT AND PLAN: 1. Closed fracture of right hip with nonunion, subsequent encounter - ICD9: 733.82, ICD10: S72.001K Functional Plan: I reviewed his radiographic findings. At this point he's develop hardware protuberance. Progressive deformity. He is in need of revision surgery. I discussed with him the risks, benefits expected postoperative recovery of hardware removal and insertion total hip arthroplasty. Discussed the usual postoperative recovery. Discussed with him the urgent need for surgery given his pain and progressive deformity. We also discussed the COVID risk. Particularly in light of his asthma. He verbalized good understanding. I reviewed things with him utilizing some literature. All questions were answered to his apparent satisfaction and written consent was obtained. He'll continue to use his walker. We'll leave it open for him to call if any sure arise preoperatively. Return in about 22 days (around 02/01/2020). Hiral Castaneda MD The patient was offered a surgery/procedure at a [facility] facility. The surgeon/proceduralist and patient have discussed in detail the risk of exposure to and/or potential harm posed by the COVID-19 virus with having a surgery/procedure at this time versus the risk of delaying the surgery/procedure. It is not possible to know either the risk of delaying the surgery or procedure or chance of getting an infection with perfect accuracy, but a joint decision was made between the patient and the surgeon/proceduralist to proceed at this time with the scheduled surgery/procedure as indicated on the consent form. Normal [facility] CNCOon 01-05-2020 CNCO Letter Text Normal [facility] CNPFlora 01-05-2020 CNPN Telephone (AGPOB1) -------- VELIA BAGLEY ([id number]) 1960 M Date Time Provider Department 01/05/20 LEONEL, HIRAL IVORY During your visit today, we recorded the following information about you: Oni Tamayo CMA 01/05/2020 9:35 AM Signed ----- Message from Hiral Castaneda sent at 01/05/2020 8:12 AM EDT ----- I don't know how a knee walker is any better. At this point he should limit the weight he is putting on his leg. CT scan did show his fracture not completely healed and we will be proceeding with planned surgery. GAV ----- Message ----- From: Oni Quesada) Roni Sent: 01/04/2020 4:23 PM EDT To: Hiral Castaneda Patient would like to know if you would write an order for a knee walker because using a regular walker is very painful with weight bearing on his right leg. VIMAL Alvarez CMA 01/05/2020 9:36 AM Signed Patient notified. Oni Tamayo CMA Allergies As of Date: 01/05/2020 Noted Allergy Reaction AVOCADO 04/26/2018 7 - Swelling BACLOFEN 02/19/2018 14 - Other: See Comments Comments: Dizziness and full body weakness Candasartan [Other] 08/19/2007 2 - Rash CHOCOLATE 05/17/2018 16 - Unknown CIPROFLOXACIN (BULK) 06/10/2016 10 - Anaphylaxis GRASS POLLEN 04/26/2018 16 - Unknown INDOCIN (INDOMETHACIN SODIUM) 07/24/2006 2 - Rash IODINE 07/24/2006 10 - Anaphylaxis PENICILLINS 07/24/2006 2 - Rash PINE OIL 04/26/2018 16 - Unknown PROPRANOLOL 14 - Other: See Comments Comments: Severe low bp and kidneys shutting down. SULFA (SULFONAMIDE ANTIBIOTICS) 09/02/2017 2 - Rash 9 - Itching VALIUM (DIAZEPAM) 06/15/2017 14 - Other: See Comments Comments: Depression Date Reviewed: 01/02/2020 Reviewed by: Saira Guy - Fully Assessed Reason for Visit: Results [95] Prescriptions as of 01/05/2020 Sig: MUPIROCIN 2 % TOPICAL OINTMENT Apply to nasal opening 3 time* TAMSULOSIN 0.4 MG CAPSULE Take 2 capsules by mouth at b* DULOXETINE 60 MG CAPSULE,TUCKER* Take 60 mg by mouth once lamont* OXYCODONE 5 MG TABLET Take 5 mg by mouth every 6 ho* PRIMIDONE 250 MG TABLET Take 250 mg by mouth four nani* TOPIRAMATE 200 MG TABLET Take 200 mg by mouth twice da* VERAPAMIL 120 MG TABLET Take 120 mg by mouth three ti* AMLODIPINE 5 MG TABLET Take 5 mg by mouth once daily. CLONIDINE HCL 0.1 MG TABLET Take 0.1 mg by mouth twice da* INCRUSE ELLIPTA 62.5 MCG/ACTU* Inhale 1 Puff as instructed o* NITROFURANTOIN MONOHYDRATE AND * TAKE 1 CAPSULE BY MOUTH EVERY* PRIMIDONE 50 MG TABLET Take 250 mg by mouth daily at* AMITRIPTYLINE 100 MG TABLET Take 50 mg by mouth daily at * ATORVASTATIN 20 MG TABLET Take 40 mg by mouth once lamont* FASENRA 30 MG/ML SUBCUTANEOUS* Inject 30 mg subcutaneously e* BUDESONIDE-FORMOTEROL HFA 160* Inhale 2 Puffs as instructed * GABAPENTIN 300 MG CAPSULE Take 800 mg by mouth four nani* LOSARTAN 100 MG TABLET Take 100 mg by mouth once kalyan* RIZATRIPTAN 10 MG TABLET Take 10 mg by mouth as needed* NASAL ALLERGY 55 MCG SPRAY AE* FLUTICASONE PROPIONATE 50 MCG* Use 2 Sprays in each nostril * OMEPRAZOLE 20 MG CAPSULE,TUCKER* Take 1 capsule by mouth daily* Patient taking differently: Take 20 mg by mouth twice kalyan* MONTELUKAST 10 MG TABLET Take 10 mg by mouth daily at * POTASSIUM CHLORIDE ER 20 MEQ * Take 20 mEq by mouth four nani* SPIRONOLACTONE 25 MG TABLET Take 25 mg by mouth once lamont* CELECOXIB 200 MG CAPSULE Take 200 mg by mouth four nani* PROAIR HFA INHALATION Inhale 2 Puffs as instructed.* TOPIRAMATE 100 MG TABLET 2 in am, 1 at noon, 1 at even* Patient taking differently: 100 mg. 1 in am, 1 at bedtime* Problem List As Of Date 01/05/2020 Noted Resolved MIGRAINE VARIANT INTRACTABLE [G43.819] 07/24/2006 CARPAL TUNNEL SYNDROME [G56.00] 04/20/2007 Cervicalgia [M54.2] 04/14/2013 Myalgia and myositis, unspecified [[id number]] 04/14/2013 Iron deficiency anemia [D50.9] 06/10/2016 Weakness [R53.1] 06/24/2016 Lymphadenopathy [R59.1] 02/11/2018 More... Closed displaced fracture of right femoral neck*10/16/2019 Encounter Status:Closed by ONI TAMAYO CMA on 01/05/20 [facility] CNPN Telephone (AGPOB1) -------- YUDIVELIA ([id number]) 1960 M Date Time Provider Department 01/05/20 HIRAL CASTANEDA POB1 During your visit today, we recorded the following information about you: Allergies As of Date: 01/05/2020 Noted Allergy Reaction AVOCADO 04/26/2018 7 - Swelling BACLOFEN 02/19/2018 14 - Other: See Comments Comments: Dizziness and full body weakness Candasartan [Other] 08/19/2007 2 - Rash CHOCOLATE 05/17/2018 16 - Unknown CIPROFLOXACIN (BULK) 06/10/2016 10 - Anaphylaxis GRASS POLLEN 04/26/2018 16 - Unknown INDOCIN (INDOMETHACIN SODIUM) 07/24/2006 2 - Rash IODINE 07/24/2006 10 - Anaphylaxis PENICILLINS 07/24/2006 2 - Rash PINE OIL 04/26/2018 16 - Unknown PROPRANOLOL 14 - Other: See Comments Comments: Severe low bp and kidneys shutting down. SULFA (SULFONAMIDE ANTIBIOTICS) 09/02/2017 2 - Rash 9 - Itching VALIUM (DIAZEPAM) 06/15/2017 14 - Other: See Comments Comments: Depression Date Reviewed: 01/02/2020 Reviewed by: Saira Guy - Fully Assessed Reason for Visit: Orders [681] Cmt: Covid Primary Visit Diagnosis:Closed displaced fracture of right femoral neck (HCC) [S72.001A] Order(s):PRE-PROCEDURE AND PRE-OPERATIVE COVID [SQPOCOVD] Order #: [id number] FUTURE Prescriptions as of 01/05/2020 Sig: MUPIROCIN 2 % TOPICAL OINTMENT Apply to nasal opening 3 time* TAMSULOSIN 0.4 MG CAPSULE Take 2 capsules by mouth at b* DULOXETINE 60 MG CAPSULE,TUCKER* Take 60 mg by mouth once lamont* OXYCODONE 5 MG TABLET Take 5 mg by mouth every 6 ho* PRIMIDONE 250 MG TABLET Take 250 mg by mouth four nani* TOPIRAMATE 200 MG TABLET Take 200 mg by mouth twice da* VERAPAMIL 120 MG TABLET Take 120 mg by mouth three ti* AMLODIPINE 5 MG TABLET Take 5 mg by mouth once daily. CLONIDINE HCL 0.1 MG TABLET Take 0.1 mg by mouth twice da* INCRUSE ELLIPTA 62.5 MCG/ACTU* Inhale 1 Puff as instructed o* NITROFURANTOIN MONOHYDRATE AND * TAKE 1 CAPSULE BY MOUTH EVERY* PRIMIDONE 50 MG TABLET Take 250 mg by mouth daily at* AMITRIPTYLINE 100 MG TABLET Take 50 mg by mouth daily at * ATORVASTATIN 20 MG TABLET Take 40 mg by mouth once lamont* FASENRA 30 MG/ML SUBCUTANEOUS* Inject 30 mg subcutaneously e* BUDESONIDE-FORMOTEROL HFA 160* Inhale 2 Puffs as instructed * GABAPENTIN 300 MG CAPSULE Take 800 mg by mouth four nani* LOSARTAN 100 MG TABLET Take 100 mg by mouth once kalyan* RIZATRIPTAN 10 MG TABLET Take 10 mg by mouth as needed* NASAL ALLERGY 55 MCG SPRAY AE* FLUTICASONE PROPIONATE 50 MCG* Use 2 Sprays in each nostril * OMEPRAZOLE 20 MG CAPSULE,TUCKER* Take 1 capsule by mouth daily* Patient taking differently: Take 20 mg by mouth twice kalyan* MONTELUKAST 10 MG TABLET Take 10 mg by mouth daily at * POTASSIUM CHLORIDE ER 20 MEQ * Take 20 mEq by mouth four nani* SPIRONOLACTONE 25 MG TABLET Take 25 mg by mouth once lamont* CELECOXIB 200 MG CAPSULE Take 200 mg by mouth four nani* PROAIR HFA INHALATION Inhale 2 Puffs as instructed.* TOPIRAMATE 100 MG TABLET 2 in am, 1 at noon, 1 at even* Patient taking differently: 100 mg. 1 in am, 1 at bedtime* Problem List As Of Date 01/05/2020 Noted Resolved MIGRAINE VARIANT INTRACTABLE [G43.819] 07/24/2006 CARPAL TUNNEL SYNDROME [G56.00] 04/20/2007 Cervicalgia [M54.2] 04/14/2013 Myalgia and myositis, unspecified [[id number]] 04/14/2013 Iron deficiency anemia [D50.9] 06/10/2016 Weakness [R53.1] 06/24/2016 Lymphadenopathy [R59.1] 02/11/2018 More... Closed displaced fracture of right femoral neck*10/16/2019 Encounter Status:Closed by ONI TAMAYO CMA on 01/05/20 [facility] CNPNon 01-04-2020 CNPN Telephone (AGPOB1) -------- VELIA BAGLEY ([id number]) 1960 M Date Time Provider Department 01/04/20 HIRAL CASTANED[facility] During your visit today, we recorded the following information about you: Oni Tamayo CMA 01/04/2020 4:23 PM Signed Patient notified of nasal swab results. Patient to begin Nasal Bactroban prescription per Dr. Castaneda Allergies As of Date: 01/04/2020 Noted Allergy Reaction AVOCADO 04/26/2018 7 - Swelling BACLOFEN 02/19/2018 14 - Other: See Comments Comments: Dizziness and full body weakness Candasartan [Other] 08/19/2007 2 - Rash CHOCOLATE 05/17/2018 16 - Unknown CIPROFLOXACIN (BULK) 06/10/2016 10 - Anaphylaxis GRASS POLLEN 04/26/2018 16 - Unknown INDOCIN (INDOMETHACIN SODIUM) 07/24/2006 2 - Rash IODINE 07/24/2006 10 - Anaphylaxis PENICILLINS 07/24/2006 2 - Rash PINE OIL 04/26/2018 16 - Unknown PROPRANOLOL 14 - Other: See Comments Comments: Severe low bp and kidneys shutting down. SULFA (SULFONAMIDE ANTIBIOTICS) 09/02/2017 2 - Rash 9 - Itching VALIUM (DIAZEPAM) 06/15/2017 14 - Other: See Comments Comments: Depression Date Reviewed: 01/02/2020 Reviewed by: Saira Guy - Fully Assessed Reason for Visit: Results [95] Prescriptions as of 01/04/2020 Sig: MUPIROCIN 2 % TOPICAL OINTMENT Apply to nasal opening 3 time* TAMSULOSIN 0.4 MG CAPSULE Take 2 capsules by mouth at b* DULOXETINE 60 MG CAPSULE,TUCKER* Take 60 mg by mouth once lamont* OXYCODONE 5 MG TABLET Take 5 mg by mouth every 6 ho* PRIMIDONE 250 MG TABLET Take 250 mg by mouth four nani* TOPIRAMATE 200 MG TABLET Take 200 mg by mouth twice da* VERAPAMIL 120 MG TABLET Take 120 mg by mouth three ti* AMLODIPINE 5 MG TABLET Take 5 mg by mouth once daily. CLONIDINE HCL 0.1 MG TABLET Take 0.1 mg by mouth twice da* INCRUSE ELLIPTA 62.5 MCG/ACTU* Inhale 1 Puff as instructed o* NITROFURANTOIN MONOHYDRATE AND * TAKE 1 CAPSULE BY MOUTH EVERY* PRIMIDONE 50 MG TABLET Take 250 mg by mouth daily at* AMITRIPTYLINE 100 MG TABLET Take 50 mg by mouth daily at * ATORVASTATIN 20 MG TABLET Take 40 mg by mouth once lamont* FASENRA 30 MG/ML SUBCUTANEOUS* Inject 30 mg subcutaneously e* BUDESONIDE-FORMOTEROL HFA 160* Inhale 2 Puffs as instructed * GABAPENTIN 300 MG CAPSULE Take 800 mg by mouth four nani* LOSARTAN 100 MG TABLET Take 100 mg by mouth once kalyan* RIZATRIPTAN 10 MG TABLET Take 10 mg by mouth as needed* NASAL ALLERGY 55 MCG SPRAY AE* FLUTICASONE PROPIONATE 50 MCG* Use 2 Sprays in each nostril * OMEPRAZOLE 20 MG CAPSULE,TUCKER* Take 1 capsule by mouth daily* Patient taking differently: Take 20 mg by mouth twice kalyan* MONTELUKAST 10 MG TABLET Take 10 mg by mouth daily at * POTASSIUM CHLORIDE ER 20 MEQ * Take 20 mEq by mouth four nani* SPIRONOLACTONE 25 MG TABLET Take 25 mg by mouth once lamont* CELECOXIB 200 MG CAPSULE Take 200 mg by mouth four nani* PROAIR HFA INHALATION Inhale 2 Puffs as instructed.* TOPIRAMATE 100 MG TABLET 2 in am, 1 at noon, 1 at even* Patient taking differently: 100 mg. 1 in am, 1 at bedtime* Problem List As Of Date 01/04/2020 Noted Resolved MIGRAINE VARIANT INTRACTABLE [G43.819] 07/24/2006 CARPAL TUNNEL SYNDROME [G56.00] 04/20/2007 Cervicalgia [M54.2] 04/14/2013 Myalgia and myositis, unspecified [[id number]] 04/14/2013 Iron deficiency anemia [D50.9] 06/10/2016 Weakness [R53.1] 06/24/2016 Lymphadenopathy [R59.1] 02/11/2018 More... Closed displaced fracture of right femoral neck*10/16/2019 Encounter Status:Closed by ONI TAMAYO CMA on 01/04/20 [facility] CT HIP WO IVCON RTon CT HIP WO IVCON RT Final Report DATE OF EXAM: Jan 04 2020 8:55AM [facility] 0080 - CT HIP WO IVCON RT / PROCEDURE REASON: Closed fracture of right hip with nonunion, subsequent encounter Physician Interpretation EXAM TITLE: CT HIP WO IVCON RT DATE: 01/04/2020 COMPARISON: Multiple prior radiographs with the most recent dated 12/21/2019 CLINICAL INDICATION/HISTORY: Femoral neck fracture TECHNIQUE: CT right hip performed as per routine protocol including sagittal and coronal reconstruction images. CT Radiation dose: Integrated Dose-length product (DLP) for this visit = 631.[address] Dose Reduction Employed: Automated exposure control(AEC) and iterative recon FINDINGS: Right femoral neck fracture again noted. Small portions of the fracture demonstrates corticated margins, although there is bony bridging across the majority of the fracture. Since the initial postoperative radiographs from October of this year, there has been progressive impaction at the fracture, most pronounced medially. Fragments are in varus alignment secondary to the impaction. There are 3 cannulated partially threaded screws again noted. The distal tip of the proximal screw is now shown to extend be on the cortex of the superior femoral head. There has also been progressive migration of the 2 distal screws into the medial aspect of the femoral head. Also, due to the foreshortening/impaction of the femoral neck, all screws now extend into the soft tissues lateral to the intertrochanteric region. There is no new fracture. There is left-sided L4 spondylolysis along with bilateral L5 spondylolysis. Severe L4-5 degenerative disc disease on the left. Cortical margins of the sacroiliac joints are maintained. No pelvic lymphadenopathy or free fluid. There is no urinary bladder mass. IMPRESSION: Although there is bony union across the known right femoral neck fracture, there has been progressive impaction (most pronounced medially) leading to varus alignment. Given the foreshortening of the femoral neck, there has been superomedial migration of the distal tip of the cannulated screws in addition to extension into the lateral soft tissues proximally. Criminalist Technician: [facility] Transcribe Date/Time: Jan 04 2020 3:42P Dictated by : RONI MARVIN MD This examination was interpreted and the report reviewed and electronically signed by: RONI MARVIN MD on Jan 04 2020 3:51PM EST Normal [facility] Staph aureus PCRon 0 MRSA PCR SEE BELOW Normal [facility] Comment on above: Result Comment: Nega tive for MRSA by PCR. Performed By: #### R COVD #### [place] [address] S aureus Spec Source NASAL Normal [facility] Comment on above: Performed By: #### R COVD #### [place] [address] Staph aureus PCR SEE BELOW Abnormal [facility] Comment on above: Result Comment: Posi tive for Staphylococcus aureus by PCR.(*) Performing Laboratory: [facility] [address] [place] [address] Performed By: #### R COVD #### [place] [address] Basic Metabolic Panelon 08- Anion gap [Moles/Vol] 8 mmol/L Low 9-18 [facility] Comment on above: Performed By: #### B MP #### [place] [address] Calcium [Mass/Vol] 9.1 mg/dL Normal 8.5-10.2 [facility] Comment on above: Performed By: #### B MP #### [place] [address] Chloride [Moles/Vol] 107 mmol/L High 97-105 [facility] Comment on above: Performed By: #### B MP #### [facility] [address] [place], [place] [address] CO2 Blood 24 mmol/L Normal 22-30 [facility] Comment on above: Performed By: #### B MP #### [facility] [address] [place], [place] [address] Creatinine [Mass/Vol] 1.08 mg/dL Normal 0.73-1.22 [facility] Comment on above: Performed By: #### B MP #### [facility] [address] [place], [place] [address] Glucose [Mass/Vol] 70 mg/dL Low 74-99 [facility] Comment on above: Result Comment: The [place] [employer] (ADA) provides guidance for cutoff values for fasting glucose and random glucose. The ADA defines fasting as no caloric intake for at least 8 hours.Fasting plasma glucose results between 100 to 125 mg/dL indicate increased risk for diabetes (prediabetes). Fasting plasma glucose results greater than or equal to 126 mg/dL meet the criteria for diagnosis of diabetes. In the absence of unequivocal hyperglycemia, results should be confirmed by repeat testing. In a patient with classic symptoms of hyperglycemia or hyperglycemic crisis, random plasma glucose results greater than or equal to 200 mg/dL meet the criteria for diagnosis of diabetes. Reference: Standards of Medical Care in Diabetes 2016; [place] [employer]. Diabetes Care. 2016;39(Suppl 1). Performed By: #### B MP #### [facility] [address] [place], [place] [address] Potassium [Moles/Vol] 4.3 mmol/L Normal 3.7-5.1 [facility] Comment on above: Performed By: #### B MP #### [facility] [address] [place], [place] [address] Sodium [Moles/Vol] 139 mmol/L Normal 136-144 [facility] Comment on above: Performed By: #### B MP #### [facility] [address] [place], [place] [address] Urea nitrogen [Mass/Vol] 18 mg/dL Normal 9-24 [facility] Comment on above: Performed By: #### B MP #### [place] [id number] HISTORY PHYSICALon 0 HISTORY PHYSICAL HNO ID: [id number] Author: Saira Matt Guy Service: ? Author Type: Nurse Practitioner Type: HANDP Filed: 01/02/2020 10:07 AM Note Text: HISTORY AND PHYSICAL EXAMINATION SERVICE DATE: 01/02/2020 SERVICE TIME: 8:33 AM PRIMARY CARE PHYSICIAN: Rachel Rayo MD The patient has the following: ACTIVE PROBLEM LIST Variants of Migraine, Not Elsewhere Classified, With Intractable Migraine, So Stated, Without Mention of Status Migrainosus Carpal Tunnel Syndrome Cervicalgia Myalgia and Myositis, Unspecified Iron Deficiency Anemia Weakness Lymphadenopathy Closed Displaced Fracture of Right Femoral Neck (Hcc) Subjective CHIEF COMPLAINT: Right hip fracture that has not healed HPI: This is a 59 year old male presenting to [facility] with the c/o above after a fracture in October 2019 after a fall. Patient had surgery with screws placed but they have not healed correctly. He complains of pain 7 out of 10 with any increase in activity described as sharp and throbbing. He is on oxycodone. Getting up from a seated position riding in a car increases the pain lying flat helps with relief. He is currently using a walker. Recent x-ray shows screws backing out per patient. After discussion with the surgeon the patient agrees to surgical intervention. 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 Multiple blood clots before (3-4). - Hypertension Mother - Heart Failure Father 72 of CHF. 2 OR before that - Parkinson?s Disease Father 68 - Prostate Cancer Brother - Parkinson?s Disease Paternal Grandfather - Diabetes No Family History SOCIAL HISTORY: Social History Tobacco Use - Smoking status: Never Smoker - Smokeless tobacco: Never Used - Tobacco comment: second hand smoke from father. Substance Use Topics - Alcohol use: No - Drug use: No Prior to Admission medications as of 12/30/19 09 Medication Sig Last Dose Taking DULoxetine (CYMBALTA) 60 mg capsule Take 60 mg by mouth once daily. Yes oxyCODONE IR (ROXICODONE) 5 mg immediate release tablet Take 5 mg by mouth every 6 hours as needed. Yes primidone (MYSOLINE) 250 mg tablet Take 250 mg by mouth four times daily. 350mg Tab in morning and 1 Tab in the afternoon 50 Mg and 250Mg at dinner Yes topiramate (TOPAMAX) 200 mg tablet Take 200 mg by mouth twice daily. Yes verapamil (CALAN, ISOPTIN) 120 mg tablet Take 120 mg by mouth three times daily. Yes amLODIPine (NORVASC) 5 mg tablet Take 5 mg by mouth once daily. Yes cloNIDine HCl (CATAPRES) 0.1 mg tablet Take 0.1 mg by mouth twice daily before meals (0600/1600). Yes umeclidinium (INCRUSE ELLIPTA) 62.5 mcg/actuation inhaler Inhale 1 Puff as instructed once daily. Yes tamsulosin ER (FLOMAX) 0.4 mg cap TAKE 2 CAPSULES BY MOUTH EVERY DAY Patient taking differently: 0.4 mg twice daily. Yes nitrofurantoin monohydrate and macrocrystal (MACROBID) 100 mg capsule TAKE 1 CAPSULE BY MOUTH EVERY DAY Yes primidone (MYSOLINE) 50 mg tablet Take 250 mg by mouth daily at bedtime. Yes amitriptyline (ELAVIL) 100 mg tablet Take 50 mg by mouth daily at bedtime. Yes atorvastatin (LIPITOR) 20 mg tablet Take 40 mg by mouth once daily. Yes FASENRA 30 mg/mL injection Inject 30 mg subcutaneously every 8 weeks. Next one due 11/15/19 Yes budesonide-formoterol (SYMBICORT) 160-4.5 mcg/actuation inhaler Inhale 2 Puffs as instructed twice daily. Yes gabapentin (NEURONTIN) 300 mg capsule Take 800 mg by mouth four times daily. Yes losartan (COZAAR) 100 mg tablet Take 100 mg by mouth once daily. Yes rizatriptan (MAXALT) 10 mg tablet Take 10 mg by mouth as needed. Yes NASAL ALLERGY 55 mcg nasal inhaler Yes fluticasone (FLONASE) 50 mcg/actuation nasal spray Use 2 Sprays in each nostril once daily. Yes omeprazole (PRILOSEC) 20 mg capsule Take 1 capsule by mouth daily before dinner. 30 MINUTES BEFORE DINNER. Patient taking differently: Take 20 mg by mouth twice daily. 30 MINUTES BEFORE DINNER. Yes montelukast (SINGULAIR) 10 mg tablet Take 10 mg by mouth daily at bedtime. Yes potassium chloride ER (K-DUR, KLOR-CON) 20 mEq tablet Take 20 mEq by mouth four times daily. Yes spironolactone (ALDACTONE) 25 mg tablet Take 25 mg by mouth once daily. Yes celecoxib (CELEBREX) 200 mg capsule Take 200 mg by mouth four times daily. Yes ALBUTEROL SULFATE (PROAIR HFA INHALATION) Inhale 2 Puffs as instructed. Prn SOB Yes topiramate (TOPAMAX) 100 mg tablet 2 in am, 1 at noon, 1 at evening and 2 at bedtime (600 mg/day total) Patient taking differently: 100 mg. 1 in am, 1 at bedtime (600 mg/day total) Yes No medication comments found. ALLERGIES Allergen Reactions - Avocado Swelling - Baclofen Other: See Comments Dizziness and full body weakness - Candasartan [Other] Rash - Chocolate Unknown - Ciprofloxacin (Bulk) Anaphylaxis - Grass Pollen Unknown - Indocin [Indomethac* Rash - Iodine Anaphylaxis - Penicillins Rash - [place] Oil Unknown - Propranolol Other: See Comments Severe low bp and kidneys shutting down. - Sulfa (Sulfonamide * Rash, Itching - Valium [Diazepam] Other: See Comments Depression REVIEW OF SYSTEMS: PAIN ASSESSMENT: General: Denies fever, chills, and unexpected weight change. Neuro: Denies dizziness, migraines stroke TIA essential tremor Respiratory: Denies SOB, cough severe persistent asthma Cardiovascular: Denies CP, palpitations, stents HTN GI: Denies abd pain, N/V/D GERD : Denies dysuria, frequency Endocrine: No history of Diabetes. Hematology: Denies history of bleeding or clotting disorder Musculoskeletal: See history of present illness OA Skin: Denies open sores, rashes, itching Psych: Denies Anxiety/Depression Diagnostic tests reviewed for today's visit: Lab Value Units Date High Low HB 10.5 g/dL 10/20/2019 17.5 13.7 HCT 33.5 % 10/20/2019 51.0 40.1 WBC 4.39 thou/c* 10/20/2019 9.07 4.23 PLT 159 thou/c* 10/20/2019 365 141 NA 141 mmol/L 10/19/2019 144 136 K 4.3 mmol/L 10/19/2019 5.1 3.7 GLUC 112 mg/dL 10/19/2019 99 74 BUN 13 mg/dL 10/19/2019 24 9 CREAT 1.02 mg/dL 10/19/2019 1.22 0.73 PTSEC 10.6 sec 10/16/2019 13.0 9.7 INR 0.98 no uni* 10/16/2019 1.30 0.90 APTT 23.2 sec 10/16/2019 32.4 23.0 ALT No results within date range. AST No results within date range. TBILI No results within date range. TSH No results within date range. Lab Value Units Date High Low HCGQT No results within date range. UHCG No results within date range. HCG, BODY* No results within date range. Lab Value Units Date High Low ABORHD No results within date range. ABSCREEN NEGATI* no uni* 10/16/2019 No results found for: HBA1C Objective PHYSICAL EXAM: VITALS: BP 98/67 Pulse 69 Temp 97.6 Resp 18 Ht 5' 10 (1.78m) Wt 220 lb (99.8kg) SpO2 100% BMI 31.57 kg/(m2). General: NAD. Cooperative. Using walker Skin: Skin is warm, no rashes, and no open sores. HEENT: Normocephalic. EOM pupils equal round reactive Cardiovascular: Normal S1 AND S2. RRR No murmurs Gallops Lungs: CTA. No respiratory distress. No crackles, wheezes, rhonchi Abdomen: Soft. + Bowel Sounds Extremities: No edema, varicose veins, cellulitis right hip pain Neurological: Alert and oriented x 3 tremors weakness, speech abnormality Pulses: radial pulses +2 PLAN Patient has the following medical conditions which may affect erlinda-operative course Asthma - Medication(s) reviewed and discussed the importance of compliance. 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 Hiral Castaneda The Following Tests/Procedures Have Been Initiated: C 19 ordered in epic NURSE GYNECOLOGY ordered MRSA type and screen CBC BMP CONSULTS: No Consults Pending patient recently had hip surgery in October for hip fracture with Dr. Castaneda Planned Anesthetic: General Instructions Given to Patient: Patient given verbal and written preop instructions and voices comprehension/compliance . Antimicrobial soap and instructions given to patient. This note has been produced using [employer] speech recognition software and may contain errors to the system including grammar, punctuation, spelling, gender and words and phrases that may be inappropriate. SIGNATURE: Saira Guy APRN.CNP PATIENT NAME: Velia Bagley DATE: January 02, 2020 TIME: 8:33 AM PAGER/CONTACT #: Normal [facility] Hemogramon 01-02-2020 Erythrocyte distribution width (RBC) [Ratio] 15.9 % High 11.6-14.4 [facility] Comment on above: Performed By: #### U RIN2 #### [address] [address] Hematocrit (Bld) [Volume fraction] 44.2 % Normal 40.1-51.0 [facility] Comment on above: Performed By: #### U RIN2 #### [address] [address] Hemoglobin (Bld) [Mass/Vol] 13.9 g/dL Normal 13.7-17.5 [facility] Comment on above: Performed By: #### U RIN2 #### [facility] [address] [place], [place] [address] MCH (RBC) [Entitic mass] 29.7 pg Normal 25.7-32.2 [facility] Comment on above: Performed By: #### U RIN2 #### [facility] [address] [place], [place] [address] MCHC (RBC) [Mass/Vol] 31.4 % Low 32.3-36.5 [facility] Comment on above: Performed By: #### U RIN2 #### [facility] [address] [place] [address] MCV (RBC) [Entitic vol] 94.4 fL Normal 83.2-95.6 [facility] Comment on above: Performed By: #### U RIN2 #### [facility] [address] [place] [address] Platelet mean volume (Bld) [Entitic vol] 9.3 fL Normal 8.7-12.0 [facility] Comment on above: Performed By: #### U RIN2 #### [facility] [address] [place] [address] Platelets (Bld) [#/Vol] 230 thou/cmm Normal 141-365 [facility] Comment on above: Performed By: #### U RIN2 #### [facility] [address] [place] [address] RBC (Bld) [#/Vol] 4.68 mil/cmm Normal 4.63-6.08 [facility] Comment on above: Performed By: #### U RIN2 #### [facility] [address] [place], [place] [address] RDW SD 53.8 fl High 36.1-45.8 [facility] Comment on above: Performed By: #### U RIN2 #### [facility] [address] [place], [place] [address] WBC (Bld) [#/Vol] 7.19 thou/cmm Normal 4.23-9.07 [facility] Comment on above: Performed By: #### U RIN2 #### [facility] [address] [place] [address] MDRD GFRon 01-02-2020 GFR/1.73 sq M predicted among non-blacks MDRD (S/P/Bld) [Vol rate/Area] mL/min/{1.73_m2} Normal >60mL/min/1. 73m2 [facility] Comment on above: Result Comment: If t he patient is , multiply the result by 1.210. Performed By: #### U RIN2 #### [facility] [address] [place] [address] Type and Screenon 01-02-2020 ABO group Nom (Bld) O Normal [facility] Comment on above: Performed By: #### R COVD #### [place] [address] Comment PAT specimen Normal [facility] Comment on above: Performed By: #### R COVD #### [place] [address] RH Type Positive Normal [facility] Comment on above: Performed By: #### R COVD #### [place] [address] HOSPon 12-23-2019 HOSP Patient:Velia Bagley MRN: Height:5' 10 (1.778 m) Weight:220 lb (99.791 kg) Outpatient Medications as of 01/16/20: AIMOVIG AUTOINJECTOR 140 mg/mL syringe venlafaxine ER (EFFEXOR XR) 75 mg 24 hr capsule levocetirizine (XYZAL) 5 mg tablet tiotropium (SPIRIVA) 18 mcg inhalation capsule levalbuterol (XOPENEX) 1.25 mg/3 mL nebulizer solution calcitonin,salmon,synthe tic (CALCITONIN, SALMON, NASAL) mupirocin (BACTROBAN) 2 % ointment tamsulosin ER (FLOMAX) 0.4 mg DULoxetine (CYMBALTA) 60 mg capsule oxyCODONE IR (ROXICODONE) 5 mg immediate release tablet primidone (MYSOLINE) 250 mg tablet topiramate (TOPAMAX) 200 mg tablet verapamil (CALAN, ISOPTIN) 120 mg tablet amLODIPine (NORVASC) 5 mg tablet cloNIDine HCl (CATAPRES) 0.1 mg tablet umeclidinium (INCRUSE ELLIPTA) 62.5 mcg/actuation inhaler nitrofurantoin monohydrate and macrocrystal (MACROBID) 100 mg capsule primidone (MYSOLINE) 50 mg tablet amitriptyline (ELAVIL) 100 mg tablet atorvastatin (LIPITOR) 20 mg tablet FASENRA 30 mg/mL injection budesonide-formoterol (SYMBICORT) 160-4.5 mcg/actuation inhaler gabapentin (NEURONTIN) 300 mg capsule losartan (COZAAR) 100 mg tablet rizatriptan (MAXALT) 10 mg tablet NASAL ALLERGY 55 mcg nasal inhaler fluticasone (FLONASE) 50 mcg/actuation nasal spray omeprazole (PRILOSEC) 20 mg capsule montelukast (SINGULAIR) 10 mg tablet potassium chloride ER (K-DUR, KLOR-CON) 20 mEq tablet spironolactone (ALDACTONE) 25 mg tablet celecoxib (CELEBREX) 200 mg capsule ALBUTEROL SULFATE (PROAIR HFA INHALATION) topiramate (TOPAMAX) 100 mg tablet Admission/Clinic Administered Medications as of 01/16/20: lidocaine 10 mg/mL (1 %) 1-2 mg injection (XYLOCAINE) lactated ringers infusion tranexamic acid 1,000 mg in NaCl 0.9% 100 mL (CYKLOKAPRON) tranexamic acid 1,000 mg in NaCl 0.9% 100 mL (CYKLOKAPRON) clindamycin iv piggyback 900 mg in D5W 50 mL (CLEOCIN) vancomycin iv piggyback 1 g in D5W 200 mL (VANCOCIN) NaCl 0.9% irrigation bag NaCl 0.9% irrigation bottle water for irrigation irrigation Problem List: Variants of migraine, not elsewhere classified, with intractable migraine, so stated, without mention of status migrainosus [G43.819] Carpal tunnel syndrome [G56.00] Cervicalgia [M54.2] Myalgia and myositis, unspecified [[id number]] Iron deficiency anemia [D50.9] Weakness [R53.1] Lymphadenopathy [R59.1] Closed displaced fracture of right femoral neck (HCC) [S72.001A] Status post total hip replacement, 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] Allergies: Avocado Baclofen Candasartan [Other] Chocolate Ciprofloxacin (Bulk) Grass Pollen Indocin [Indomethacin Sodium] Ivp Dye [Iodine] Penicillins Lima Oil Propranolol Sulfa (Sulfonamide Antibiotics) Valium [Diazepam] Date Verified: 01/16/20 Lab Values Lab Value Units Date High Low POTA* 4.3 mmol/L 01/02/2020 5.1 3.7 KEI* 44.2 % 01/02/2020 51.0 40.1 Progress Notes ([facility] POB 440): Hiral Castaneda MD 01/11/2020 9:11 AM Signed ORTHOPAEDIC OFFICE NOTE HISTORY OF PRESENT ILLNESS: Velia Bagley is a 59 year old male who presents for follow-up of his right femoral neck fracture. No recent injury or falls. However having increasing pain in the groin and thigh region. Underwent his recent CT scan. Reviewed nursing note and current pain scale. 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 Multiple blood clots before (3-4). - Hypertension Mother - Heart Failure Father 72 of CHF. 2 OR before that - Parkinson?s Disease Father 68 - Prostate Cancer Brother - Parkinson?s Disease Paternal Grandfather - Diabetes No Family History Social History Tobacco Use - Smoking status: Never Smoker - Smokeless tobacco: Never Used - Tobacco comment: second hand smoke from father. Substance Use Topics - Alcohol use: No - Drug use: No MEDICATIONS: Current Outpatient Medications Medication Sig - [START ON 01/11/2020] mupirocin (BACTROBAN) 2 % ointment Apply to nasal opening 3 times daily for 5 days before surgery - tamsulosin ER (FLOMAX) 0.4 mg Take 2 capsules by mouth at bedtime. - DULoxetine (CYMBALTA) 60 mg capsule Take 60 mg by mouth once daily. - oxyCODONE IR (ROXICODONE) 5 mg immediate release tablet Take 5 mg by mouth every 6 hours as needed. - primidone (MYSOLINE) 250 mg tablet Take 250 mg by mouth four times daily. 350mg Tab in morning and 1 Tab in the afternoon 50 Mg and 250Mg at dinner - topiramate (TOPAMAX) 200 mg tablet Take 200 mg by mouth twice daily. - verapamil (CALAN, ISOPTIN) 120 mg tablet Take 120 mg by mouth three times daily. - amLODIPine (NORVASC) 5 mg tablet Take 5 mg by mouth once daily. - cloNIDine HCl (CATAPRES) 0.1 mg tablet Take 0.1 mg by mouth twice daily before meals (0600/1600). - umeclidinium (INCRUSE ELLIPTA) 62.5 mcg/actuation inhaler Inhale 1 Puff as instructed once daily. - nitrofurantoin monohydrate and macrocrystal (MACROBID) 100 mg capsule TAKE 1 CAPSULE BY MOUTH EVERY DAY - primidone (MYSOLINE) 50 mg tablet Take 250 mg by mouth daily at bedtime. - amitriptyline (ELAVIL) 100 mg tablet Take 50 mg by mouth daily at bedtime. - atorvastatin (LIPITOR) 20 mg tablet Take 40 mg by mouth once daily. - FASENRA 30 mg/mL injection Inject 30 mg subcutaneously every 8 weeks. Next one due 11/15/19 - budesonide-formoterol (SYMBICORT) 160-4.5 mcg/actuation inhaler Inhale 2 Puffs as instructed twice daily. - gabapentin (NEURONTIN) 300 mg capsule Take 800 mg by mouth four times daily. - losartan (COZAAR) 100 mg tablet Take 100 mg by mouth once daily. - rizatriptan (MAXALT) 10 mg tablet Take 10 mg by mouth as needed. - NASAL ALLERGY 55 mcg nasal inhaler - fluticasone (FLONASE) 50 mcg/actuation nasal spray Use 2 Sprays in each nostril once daily. - omeprazole (PRILOSEC) 20 mg capsule Take 1 capsule by mouth daily before dinner. 30 MINUTES BEFORE DINNER. (Patient taking differently: Take 20 mg by mouth twice daily. 30 MINUTES BEFORE DINNER. ) - montelukast (SINGULAIR) 10 mg tablet Take 10 mg by mouth daily at bedtime. - potassium chloride ER (K-DUR, KLOR-CON) 20 mEq tablet Take 20 mEq by mouth four times daily. - spironolactone (ALDACTONE) 25 mg tablet Take 25 mg by mouth once daily. - celecoxib (CELEBREX) 200 mg capsule Take 200 mg by mouth four times daily. - ALBUTEROL SULFATE (PROAIR HFA INHALATION) Inhale 2 Puffs as instructed. Prn SOB - topiramate (TOPAMAX) 100 mg tablet 2 in am, 1 at noon, 1 at evening and 2 at bedtime (600 mg/day total) (Patient taking differently: 100 mg. 1 in am, 1 at bedtime (600 mg/day total) ) No current facility-administered medications for this visit. ALLERGIES: ALLERGIES Allergen Reactions - Avocado Swelling - Baclofen Other: See Comments Dizziness and full body weakness - Candasartan [Other] Rash - Chocolate Unknown - Ciprofloxacin (Bulk) Anaphylaxis - Grass Pollen Unknown - Indocin [Indomethac* Rash - Iodine Anaphylaxis - Penicillins Rash - Lima Oil Unknown - Propranolol Other: See Comments Severe low bp and kidneys shutting down. - Sulfa (Sulfonamide * Rash, Itching - Valium [Diazepam] Other: See Comments Depression REVIEW OF SYSTEMS: GENERAL: Well developed, well nourished. No acute distress PAIN: Pain Right hip CARDIOVASCULAR: Negative for chest pain, leg swelling and palpations. MSK: joint pain Right hip SKIN: Negative for lesions, rash, itching, metal sensitivity NEURO: Negative for seizure, trauma, numbness/tingling of extremities. ENDOCRINE: Negative for Diabetes Type 1 and Type 2 HEMATOLOGY: Negative for excessive bleeding, clots, bleeding disorders. PHYSICAL EXAMINATION: Resp 18 Ht 5' 10 (1.78m) Wt 220 lb (99.8kg) BMI 31.57 kg/(m2). General Appearance: Well appearing, alert, in no acute distress, well-hydrated, well nourished. and Obese Skin: Skin color, texture, turgor normal, no suspicious rashes or lesions, Incisions well healed. Extremities: Walks with an antalgic gait. Has pain on resisted hip flexion, abduction and abduction. Has 2 cm of shortening on that right side. Pain on range of motion. IMAGES: I ordered, obtained and interpreted today AP pelvis for follow-up of his femoral neck fracture. Compared to previous radiographs shows progressive impaction and varus deformity. He now has light extrusion of the superior screw. 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 No other acute changes. ASSESSMENT AND PLAN: 1. Closed fracture of right hip with nonunion, subsequent encounter - ICD9: 733.82, ICD10: S72.001K Functional Plan: I reviewed his radiographic findings. At this point he's develop hardware protuberance. Progressive deformity. He is in need of revision surgery. I discussed with him the risks, benefits expected postoperative recovery of hardware removal and insertion total hip arthroplasty. Discussed the usual postoperative recovery. Discussed with him the urgent need for surgery given his pain and progressive deformity. We also discussed the COVID risk. Particularly in light of his asthma. He verbalized good understanding. I reviewed things with him utilizing some literature. All questions were answered to his apparent satisfaction and written consent was obtained. He'll continue to use his walker. We'll leave it open for him to call if any sure arise preoperatively. Return in about 22 days (around 02/01/2020). Hiral Castaneda MD The patient was offered a surgery/procedure at a [facility] facility. The surgeon/proceduralist and patient have discussed in detail the risk of exposure to and/or potential harm posed by the COVID-19 virus with having a surgery/procedure at this time versus the risk of delaying the surgery/procedure. It is not possible to know either the risk of delaying the surgery or procedure or chance of getting an infection with perfect accuracy, but a joint decision was made between the patient and the surgeon/proceduralist to proceed at this time with the scheduled surgery/procedure as indicated on the consent form. Previous Version Progress Notes ([facility]): Oni Tamayo CMA 01/05/2020 9:35 AM Signed ----- Message from Hiral Castaneda sent at 01/05/2020 8:12 AM EDT ----- I don't know how a knee walker is any better. At this point he should limit the weight he is putting on his leg. CT scan did show his fracture not completely healed and we will be proceeding with planned surgery. GAV ----- Message ----- From: Oni Tamayo Sent: 01/04/2020 4:23 PM EDT To: Hiral Castaneda Patient would like to know if you would write an order for a knee walker because using a regular walker is very painful with weight bearing on his right leg. VIMAL Alvarez CMA 01/05/2020 9:36 AM Signed Patient notified. Oni Tamayo CMA [facility] PROGRESSon 12-22-2019 PROGRESS HNO ID: [id number] Author: Oni Tamayo Service: ? Author Type: Zipper Repairer Type: Progress Notes Filed: 12/22/2019 8:39 AM Note Text: This encounter was opened in error. Oni Tamayo CMA [facility] CNOVon 12-21-2019 CNOV Office Visit (AGPOB1 ) -------- VELIA BAGLEY ([id number]) 1960 M Date Time Provider Department 12/21/19 10:45 AM [facility] During your visit today, we recorded the following information about you: Respiration Weight Height 16/minute 99.8 kg 1.778 m Hiral Castaneda MD 12/21/2019 1:33 PM Signed Velia Valdivia Yudi is a 59 year old male who presents for follow-up of his right femoral neck fracture.?Had a recent lumbar epidural for his chronic postlaminectomy syndrome through his pain management. He is 9 weeks out from his index procedure. No recent further falls or trauma. Has been ambulating with his cane. Still has groin pain which has remained unchanged. States that it's a little bit worse towards the end of the day but his pain much they're constantly. On examination today his wound remains well healed. He walks with just a slight antalgic gait favoring the right side. No calf pain or distal edema. Minimal pain and good strength resisted hip flexion, adduction. ? IMAGES: I ordered, obtained and interpreted today AP pelvis and a true lateral of his right hip. Compared to his previous radiographs show his fracture unchanged in position.. Varus drift which remains unchanged given different radiographic projection.. Hardware remains intact. No acute changes are noted. Impression: Right femoral neck fracture status post CRPP with no acute change. Slight varus malunion. I advised him that he does have a slight malunion. I cannot tell if these fractures going on to union. The current change in his radiograph today appears to be somewhat rotational. Advised him that if he is going on to a nonunion we will probably need to convert him to hip arthroplasty. He verbalized understanding and stated I remember you telling me that at the beginning Doc . However given his minimal degree of pain with no escalation we may be going on to union. At this point I've recommended a CT scan to see if we can sort this out. He verbalized good understanding. We'll proceed with a CT scan and see him back following. GAV REVIEW OF SYSTEMS: GENERAL: Well developed, well nourished. No acute distress PAIN: Pain right hip CARDIOVASCULAR: Negative for chest pain, leg swelling and palpations. MSK: Negative for joint pain, swelling, back pain, muscle pain. SKIN: Negative for lesions, rash, itching, metal sensitivity NEURO: Negative for seizure, trauma, numbness/tingling of extremities. ENDOCRINE: Negative for Diabetes Type 1 and Type 2 HEMATOLOGY: Negative for excessive bleeding, clots, bleeding disorders. Referring Provider: SELF [200] Allergies As of Date: 12/21/2019 Noted Allergy Reaction AVOCADO 04/26/2018 7 - Swelling BACLOFEN 02/19/2018 14 - Other: See Comments Comments: Dizziness and full body weakness Candasartan [Other] 08/19/2007 2 - Rash CHOCOLATE 05/17/2018 16 - Unknown CIPROFLOXACIN (BULK) 06/10/2016 10 - Anaphylaxis GRASS POLLEN 04/26/2018 16 - Unknown INDOCIN (INDOMETHACIN SODIUM) 07/24/2006 2 - Rash IODINE 07/24/2006 10 - Anaphylaxis PENICILLINS 07/24/2006 2 - Rash PINE OIL 04/26/2018 16 - Unknown PROPRANOLOL 14 - Other: See Comments Comments: Severe low bp and kidneys shutting down. 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 CLONIDINE HCL 0.1 MG TABLET Take 0.1 mg by mouth twice da* INCRUSE ELLIPTA 62.5 MCG/ACTU* Inhale 1 Puff as instructed o* TAMSULOSIN 0.4 MG CAPSULE TAKE 2 CAPSULES BY MOUTH EVER* Patient taking differently: 0.4 mg twice daily. NITROFURANTOIN MONOHYDRATE AND * TAKE 1 CAPSULE BY MOUTH EVERY* PRIMIDONE 50 MG TABLET Take 250 mg by mouth daily at* AMITRIPTYLINE 100 MG TABLET Take 50 mg by mouth daily at * ATORVASTATIN 20 MG TABLET Take 40 mg by mouth once lamont* FASENRA 30 MG/ML SUBCUTANEOUS* Inject 30 mg subcutaneously e* BUDESONIDE-FORMOTEROL HFA 160* Inhale 2 Puffs as instructed * GABAPENTIN 300 MG CAPSULE Take 800 mg by mouth four nani* LOSARTAN 100 MG TABLET Take 100 mg by mouth once kalyan* RIZATRIPTAN 10 MG TABLET Take 10 mg by mouth as needed* NASAL ALLERGY 55 MCG SPRAY AE* FLUTICASONE PROPIONATE 50 MCG* Use 2 Sprays in each nostril * OMEPRAZOLE 20 MG CAPSULE,TUCKER* Take 1 capsule by mouth daily* Patient taking differently: Take 20 mg by mouth twice kalyan* MONTELUKAST 10 MG TABLET Take 10 mg by mouth daily at * POTASSIUM CHLORIDE ER 20 MEQ * Take 20 mEq by mouth four nani* SPIRONOLACTONE 25 MG TABLET Take 25 mg by mouth once lamont* CELECOXIB 200 MG CAPSULE Take 200 mg by mouth four nani* PROAIR HFA INHALATION Inhale 2 Puffs as instructed.* TOPIRAMATE 100 MG TABLET 2 in am, 1 at noon, 1 at even* Patient taking differently: 100 mg. 2 in am, 1 at noon, 2* Problem List As Of Date 12/21/2019 Noted Resolved MIGRAINE VARIANT INTRACTABLE [G43.819] 07/24/2006 CARPAL TUNNEL SYNDROME [G56.00] 04/20/2007 Cervicalgia [M54.2] 04/14/2013 Myalgia and myositis, unspecified [LOW6151] 04/14/2013 Iron deficiency anemia [D50.9] 06/10/2016 Weakness [R53.1] 06/24/2016 Lymphadenopathy [R59.1] 02/11/2018 More... Closed displaced fracture of right femoral neck*10/16/2019 Disposition: Return in about 3 weeks (around 01/11/2020). Follow-up and Disposition History Recorded Encounter Status:Closed by HIRAL CASTANEDA MD on 12/21/19 [facility] PROGRESSon 12-21-2019 PROGRESS HNO ID: [id number] Author: Hiral Castaneda Service: ? Author Type: Physician Type: Progress Notes Filed: 12/21/2019 1:33 PM Note Text: Velia Bagley is a 59 year old male who presents for follow-up of his right femoral neck fracture.?Had a recent lumbar epidural for his chronic postlaminectomy syndrome through his pain management. He is 9 weeks out from his index procedure. No recent further falls or trauma. Has been ambulating with his cane. Still has groin pain which has remained unchanged. States that it's a little bit worse towards the end of the day but his pain much they're constantly. On examination today his wound remains well healed. He walks with just a slight antalgic gait favoring the right side. No calf pain or distal edema. Minimal pain and good strength resisted hip flexion, adduction. ? IMAGES: I ordered, obtained and interpreted today AP pelvis and a true lateral of his right hip. Compared to his previous radiographs show his fracture unchanged in position.. Varus drift which remains unchanged given different radiographic projection.. Hardware remains intact. No acute changes are noted. Impression: Right femoral neck fracture status post CRPP with no acute change. Slight varus malunion. I advised him that he does have a slight malunion. I cannot tell if these fractures going on to union. The current change in his radiograph today appears to be somewhat rotational. Advised him that if he is going on to a nonunion we will probably need to convert him to hip arthroplasty. He verbalized understanding and stated I remember you telling me that at the beginning Doc . However given his minimal degree of pain with no escalation we may be going on to union. At this point I've recommended a CT scan to see if we can sort this out. He verbalized good understanding. We'll proceed with a CT scan and see him back following. GAV REVIEW OF SYSTEMS: GENERAL: Well developed, well nourished. No acute distress PAIN: Pain right hip CARDIOVASCULAR: Negative for chest pain, leg swelling and palpations. MSK: Negative for joint pain, swelling, back pain, muscle pain. SKIN: Negative for lesions, rash, itching, metal sensitivity NEURO: Negative for seizure, trauma, numbness/tingling of extremities. ENDOCRINE: Negative for Diabetes Type 1 and Type 2 HEMATOLOGY: Negative for excessive bleeding, clots, bleeding disorders. Normal [facility] CNOVon 11-29-2019 CNOV Office Visit (AGPOB1 ) -------- VELIA BAGLEY ([id number]) 1960 M Date Time Provider Department 11/29/19 2:15 PM HIRAL CASTANEDA AGPOB1 During your visit today, we recorded the following information about you: Respiration Weight Height 17/minute 99.8 kg 1.778 m Hiral Castaneda MD 11/29/2019 2:56 PM Signed ORTHOPAEDIC OFFICE NOTE CHIEF COMPLAINT: Right hip pain after a fall HISTORY OF PRESENT ILLNESS: Velia Bagley is a 59 year old male who presents for early follow-up of his right femoral neck fracture after having a fall. He is 6 weeks out from his index procedure. He relates a history of an idiopathic seizure disorder. He has spells . He had a spell 3 days ago causing him to fall. He doesn't recall loss of consciousness although states he has been disoriented after his spells. He had to be transported by paramedics to his local hospital. He was evaluated and found to have no acute injury. They did do radiographs of his right hip and found no acute changes but recommended early follow-up. He has had some slight increased groin pain. He does note that it seems to be improving daily. He is not quite back to baseline yet. He is ambulating with his walker pretty much full weightbearing. Reviewed nursing note and current pain scale. PAST MEDICAL HISTORY Diagnosis Date - Carpal tunnel syndrome, bilateral - Essential tremor - GERD (gastroesophageal reflux disease) - History of lumbar laminectomy - HTN (hypertension) - Lumbar spinal stenosis - Migraines - Osteoarthritis - Severe persistent asthma - TIA (transient ischemic attack) - UTI (urinary tract infection) PAST SURGICAL HISTORY Procedure Laterality Date - LAMINECTOMY,LUMBAR 03/2016 L4-L5 - PAST SURGICAL HISTORY OF x 16 surgeries surgery to repair bone in knee cap and multiple arthroscopies and debridements - PAST SURGICAL HISTORY OF 2018 bronchoscopy - PERCUT FIX PROX/NECK FEMUR Right 10/17/2019 FAMILY HISTORY Problem Relation Age of Onset - Emphysema Mother - Blood Clots Mother required IVC filter. Multiple blood clots before (3-4). - Hypertension Mother - Heart Failure Father 72 of CHF. 2 OR before that - Parkinson?s Disease Father 68 - Prostate Cancer Brother - Parkinson?s Disease Paternal Grandfather - Diabetes No Family History Social History Tobacco Use - Smoking status: Never Smoker - Smokeless tobacco: Never Used - Tobacco comment: second hand smoke from father. Substance Use Topics - Alcohol use: No - Drug use: No MEDICATIONS: Current Outpatient Medications Medication Sig - DULoxetine (CYMBALTA) 60 mg capsule Take 60 mg by mouth once daily. - oxyCODONE IR (ROXICODONE) 5 mg immediate release tablet Take 5 mg by mouth every 6 hours as needed. - primidone (MYSOLINE) 250 mg tablet Take 250 mg by mouth four times daily. - verapamil (CALAN, ISOPTIN) 120 mg tablet Take 120 mg by mouth three times daily. - amLODIPine (NORVASC) 5 mg tablet Take 5 mg by mouth once daily. - cloNIDine HCl (CATAPRES) 0.1 mg tablet Take 0.1 mg by mouth twice daily before meals (0600/1600). - umeclidinium (INCRUSE ELLIPTA) 62.5 mcg/actuation inhaler Inhale 1 Puff as instructed once daily. - tamsulosin ER (FLOMAX) 0.4 mg cap TAKE 2 CAPSULES BY MOUTH EVERY DAY (Patient taking differently: 0.4 mg twice daily. ) - nitrofurantoin monohydrate and macrocrystal (MACROBID) 100 mg capsule TAKE 1 CAPSULE BY MOUTH EVERY DAY - primidone (MYSOLINE) 50 mg tablet Take 250 mg by mouth daily at bedtime. - amitriptyline (ELAVIL) 100 mg tablet Take 50 mg by mouth daily at bedtime. - atorvastatin (LIPITOR) 20 mg tablet Take 40 mg by mouth once daily. - FASENRA 30 mg/mL injection Inject 30 mg subcutaneously every 8 weeks. Next one due 11/15/19 - budesonide-formoterol (SYMBICORT) 160-4.5 mcg/actuation inhaler Inhale 2 Puffs as instructed twice daily. - gabapentin (NEURONTIN) 300 mg capsule Take 800 mg by mouth four times daily. - losartan (COZAAR) 100 mg tablet Take 100 mg by mouth once daily. - rizatriptan (MAXALT) 10 mg tablet Take 10 mg by mouth as needed. - NASAL ALLERGY 55 mcg nasal inhaler - fluticasone (FLONASE) 50 mcg/actuation nasal spray Use 2 Sprays in each nostril once daily. - omeprazole (PRILOSEC) 20 mg capsule Take 1 capsule by mouth daily before dinner. 30 MINUTES BEFORE DINNER. (Patient taking differently: Take 20 mg by mouth twice daily. 30 MINUTES BEFORE DINNER. ) - montelukast (SINGULAIR) 10 mg tablet Take 10 mg by mouth daily at bedtime. - potassium chloride ER (K-DUR, KLOR-CON) 20 mEq tablet Take 20 mEq by mouth four times daily. - spironolactone (ALDACTONE) 25 mg tablet Take 25 mg by mouth once daily. - celecoxib (CELEBREX) 200 mg capsule Take 200 mg by mouth four times daily. - ALBUTEROL SULFATE (PROAIR HFA INHALATION) Inhale 2 Puffs as instructed. Prn SOB - topiramate (TOPAMAX) 100 mg tablet 2 in am, 1 at noon, 1 at evening and 2 at bedtime (600 mg/day total) (Patient taking differently: 100 mg. 2 in am, 1 at noon, 2 at evening and 1 at bedtime (600 mg/day total)) - topiramate (TOPAMAX) 200 mg tablet Take 200 mg by mouth twice daily. No current facility-administered medications for this visit. ALLERGIES: ALLERGIES Allergen Reactions - Avocado Swelling - Baclofen Other: See Comments Dizziness and full body weakness - Candasartan [Other] Rash - Chocolate Unknown - Ciprofloxacin (Bulk) Anaphylaxis - Grass Pollen Unknown - Indocin [Indomethac* Rash - Iodine Anaphylaxis - Penicillins Rash - Lima Oil Unknown - Propranolol Other: See Comments Severe low bp and kidneys shutting down. - Sulfa (Sulfonamide * Rash, Itching - Valium [Diazepam] Other: See Comments Depression PHYSICAL EXAMINATION: Resp 17 Ht 5' 10 (1.78m) Wt 220 lb (99.8kg) BMI 31.57 kg/(m2). General Appearance: Well appearing, alert, in no acute distress, well-hydrated, well nourished. Skin: Skin color, texture, turgor normal, no suspicious rashes or lesions. Extremities: His incisions well healed. In the seated position his 90? of flexion. 20? of internal and external rotation both passively and actively pain-free. No pain on resisted hip flexion. Calf pain or distal edema. IMAGES: I ordered, obtained and interpreted today AP pelvis and a true lateral of his right hip. Compared to his previous radiographs show his fracture unchanged in position. Slight varus drift which remains unchanged. Hardware remains intact. No acute changes are noted. Impression: Right femoral neck fracture status post CRPP with no acute change. ASSESSMENT AND PLAN: 1. Closed displaced fracture of right femoral neck (HCC) - ICD9: 820.8, ICD10: S72.001A Functional Plan: I advised him that clinically and radiographically I see no acute change to his fixation or position. He's going to continue to go on to uneventful union. I advised him that the next 4-6 weeks will certainly tell the tail but I see no acute damage from his recent fall. He's been trying to get in touch with his neurologist to get follow-up for his seizures. I also advised him To follow-up with his PCP. He'll continue to use his walker. I'll plan on seeing him for his previously scheduled follow-up in 3 weeks' time but certainly sooner if his situation changes or worsens yet again. Return in about 3 weeks (around 12/20/2019). Hiral Castaneda MD Referring Provider: SELF [200] Allergies As of Date: 11/29/2019 Noted Allergy Reaction AVOCADO 04/26/2018 7 - Swelling BACLOFEN 02/19/2018 14 - Other: See Comments Comments: Dizziness and full body weakness Candasartan [Other] 08/19/2007 2 - Rash CHOCOLATE 05/17/2018 16 - Unknown CIPROFLOXACIN (BULK) 06/10/2016 10 - Anaphylaxis GRASS POLLEN 04/26/2018 16 - Unknown INDOCIN (INDOMETHACIN SODIUM) 07/24/2006 2 - Rash IODINE 07/24/2006 10 - Anaphylaxis PENICILLINS 07/24/2006 2 - Rash PINE OIL 04/26/2018 16 - Unknown PROPRANOLOL 14 - Other: See Comments Comments: Severe low bp and kidneys shutting down. SULFA (SULFONAMIDE ANTIBIOTICS) 09/02/2017 2 - Rash 9 - Itching VALIUM (DIAZEPAM) 06/15/2017 14 - Other: See Comments Comments: Depression Date Reviewed: 11/29/2019 Reviewed by: Hiral Castaneda - Fully Assessed Reason for Visit: Established Patient [175] Primary Visit Diagnosis:History of fall [Z91.81] Other Visit Diagnosis:Closed displaced fracture of right femoral neck (HCC) [S72.001A] Order(s):XR HIP 1V UNIL W PELVIS WHEN PERFORMED (AG) [9202928] Order #: [id number] Prescriptions as of 11/29/2019 Sig: DULOXETINE 60 MG CAPSULE,TUCKER* Take 60 mg by mouth once lamont* OXYCODONE 5 MG TABLET Take 5 mg by mouth every 6 ho* PRIMIDONE 250 MG TABLET Take 250 mg by mouth four nani* VERAPAMIL 120 MG TABLET Take 120 mg by mouth three ti* AMLODIPINE 5 MG TABLET Take 5 mg by mouth once daily. CLONIDINE HCL 0.1 MG TABLET Take 0.1 mg by mouth twice da* INCRUSE ELLIPTA 62.5 MCG/ACTU* Inhale 1 Puff as instructed o* TAMSULOSIN 0.4 MG CAPSULE TAKE 2 CAPSULES BY MOUTH EVER* Patient taking differently: 0.4 mg twice daily. NITROFURANTOIN MONOHYDRATE AND * TAKE 1 CAPSULE BY MOUTH EVERY* PRIMIDONE 50 MG TABLET Take 250 mg by mouth daily at* AMITRIPTYLINE 100 MG TABLET Take 50 mg by mouth daily at * ATORVASTATIN 20 MG TABLET Take 40 mg by mouth once lamont* FASENRA 30 MG/ML SUBCUTANEOUS* Inject 30 mg subcutaneously e* BUDESONIDE-FORMOTEROL HFA 160* Inhale 2 Puffs as instructed * GABAPENTIN 300 MG CAPSULE Take 800 mg by mouth four nani* LOSARTAN 100 MG TABLET Take 100 mg by mouth once kalyan* RIZATRIPTAN 10 MG TABLET Take 10 mg by mouth as needed* NASAL ALLERGY 55 MCG SPRAY AE* FLUTICASONE PROPIONATE 50 MCG* Use 2 Sprays in each nostril * OMEPRAZOLE 20 MG CAPSULE,TUCKER* Take 1 capsule by mouth daily* Patient taking differently: Take 20 mg by mouth twice kalyan* MONTELUKAST 10 MG TABLET Take 10 mg by mouth daily at * POTASSIUM CHLORIDE ER 20 MEQ * Take 20 mEq by mouth four nani* SPIRONOLACTONE 25 MG TABLET Take 25 mg by mouth once lamont* CELECOXIB 200 MG CAPSULE Take 200 mg by mouth four nani* PROAIR HFA INHALATION Inhale 2 Puffs as instructed.* TOPIRAMATE 100 MG TABLET 2 in am, 1 at noon, 1 at even* Patient taking differently: 100 mg. 2 in am, 1 at noon, 2* TOPIRAMATE 200 MG TABLET Take 200 mg by mouth twice da* Problem List As Of Date 11/29/2019 Noted Resolved MIGRAINE VARIANT INTRACTABLE [G43.819] 07/24/2006 CARPAL TUNNEL SYNDROME [G56.00] 04/20/2007 Cervicalgia [M54.2] 04/14/2013 Myalgia and myositis, unspecified [[id number]] 04/14/2013 Iron deficiency anemia [D50.9] 06/10/2016 Weakness [R53.1] 06/24/2016 Lymphadenopathy [R59.1] 02/11/2018 More... Closed displaced fracture of right femoral neck*10/16/2019 Disposition: Return in about 3 weeks (around 12/20/2019). Follow-up and Disposition History Recorded Encounter Status:Closed by HIRAL CASTANEDA MD on 11/29/19 [facility] PROGRESSon 11-29-2019 PROGRESS HNO ID: [id number] Author: Hiral Castaneda Service: ? Author Type: Physician Type: Progress Notes Filed: 11/29/2019 2:56 PM Note Text: ORTHOPAEDIC OFFICE NOTE CHIEF COMPLAINT: Right hip pain after a fall HISTORY OF PRESENT ILLNESS: Velia Bagley is a 59 year old male who presents for early follow-up of his right femoral neck fracture after having a fall. He is 6 weeks out from his index procedure. He relates a history of an idiopathic seizure disorder. He has spells . He had a spell 3 days ago causing him to fall. He doesn't recall loss of consciousness although states he has been disoriented after his spells. He had to be transported by paramedics to his local hospital. He was evaluated and found to have no acute injury. They did do radiographs of his right hip and found no acute changes but recommended early follow-up. He has had some slight increased groin pain. He does note that it seems to be improving daily. He is not quite back to baseline yet. He is ambulating with his walker pretty much full weightbearing. Reviewed nursing note and current pain scale. PAST MEDICAL HISTORY Diagnosis Date - Carpal tunnel syndrome, bilateral - Essential tremor - GERD (gastroesophageal reflux disease) - History of lumbar laminectomy - HTN (hypertension) - Lumbar spinal stenosis - Migraines - Osteoarthritis - Severe persistent asthma - TIA (transient ischemic attack) - UTI (urinary tract infection) PAST SURGICAL HISTORY Procedure Laterality Date - LAMINECTOMY,LUMBAR 03/2016 L4-L5 - PAST SURGICAL HISTORY OF x 16 surgeries surgery to repair bone in knee cap and multiple arthroscopies and debridements - PAST SURGICAL HISTORY OF 2018 bronchoscopy - PERCUT FIX PROX/NECK FEMUR Right 10/17/2019 FAMILY HISTORY Problem Relation Age of Onset - Emphysema Mother - Blood Clots Mother required IVC filter. Multiple blood clots before (3-4). - Hypertension Mother - Heart Failure Father 72 of CHF. 2 OR before that - Parkinson?s Disease Father 68 - Prostate Cancer Brother - Parkinson?s Disease Paternal Grandfather - Diabetes No Family History Social History Tobacco Use - Smoking status: Never Smoker - Smokeless tobacco: Never Used - Tobacco comment: second hand smoke from father. Substance Use Topics - Alcohol use: No - Drug use: No MEDICATIONS: Current Outpatient Medications Medication Sig - DULoxetine (CYMBALTA) 60 mg capsule Take 60 mg by mouth once daily. - oxyCODONE IR (ROXICODONE) 5 mg immediate release tablet Take 5 mg by mouth every 6 hours as needed. - primidone (MYSOLINE) 250 mg tablet Take 250 mg by mouth four times daily. - verapamil (CALAN, ISOPTIN) 120 mg tablet Take 120 mg by mouth three times daily. - amLODIPine (NORVASC) 5 mg tablet Take 5 mg by mouth once daily. - cloNIDine HCl (CATAPRES) 0.1 mg tablet Take 0.1 mg by mouth twice daily before meals (0600/1600). - umeclidinium (INCRUSE ELLIPTA) 62.5 mcg/actuation inhaler Inhale 1 Puff as instructed once daily. - tamsulosin ER (FLOMAX) 0.4 mg cap TAKE 2 CAPSULES BY MOUTH EVERY DAY (Patient taking differently: 0.4 mg twice daily. ) - nitrofurantoin monohydrate and macrocrystal (MACROBID) 100 mg capsule TAKE 1 CAPSULE BY MOUTH EVERY DAY - primidone (MYSOLINE) 50 mg tablet Take 250 mg by mouth daily at bedtime. - amitriptyline (ELAVIL) 100 mg tablet Take 50 mg by mouth daily at bedtime. - atorvastatin (LIPITOR) 20 mg tablet Take 40 mg by mouth once daily. - FASENRA 30 mg/mL injection Inject 30 mg subcutaneously every 8 weeks. Next one due 11/15/19 - budesonide-formoterol (SYMBICORT) 160-4.5 mcg/actuation inhaler Inhale 2 Puffs as instructed twice daily. - gabapentin (NEURONTIN) 300 mg capsule Take 800 mg by mouth four times daily. - losartan (COZAAR) 100 mg tablet Take 100 mg by mouth once daily. - rizatriptan (MAXALT) 10 mg tablet Take 10 mg by mouth as needed. - NASAL ALLERGY 55 mcg nasal inhaler - fluticasone (FLONASE) 50 mcg/actuation nasal spray Use 2 Sprays in each nostril once daily. - omeprazole (PRILOSEC) 20 mg capsule Take 1 capsule by mouth daily before dinner. 30 MINUTES BEFORE DINNER. (Patient taking differently: Take 20 mg by mouth twice daily. 30 MINUTES BEFORE DINNER. ) - montelukast (SINGULAIR) 10 mg tablet Take 10 mg by mouth daily at bedtime. - potassium chloride ER (K-DUR, KLOR-CON) 20 mEq tablet Take 20 mEq by mouth four times daily. - spironolactone (ALDACTONE) 25 mg tablet Take 25 mg by mouth once daily. - celecoxib (CELEBREX) 200 mg capsule Take 200 mg by mouth four times daily. - ALBUTEROL SULFATE (PROAIR HFA INHALATION) Inhale 2 Puffs as instructed. Prn SOB - topiramate (TOPAMAX) 100 mg tablet 2 in am, 1 at noon, 1 at evening and 2 at bedtime (600 mg/day total) (Patient taking differently: 100 mg. 2 in am, 1 at noon, 2 at evening and 1 at bedtime (600 mg/day total)) - topiramate (TOPAMAX) 200 mg tablet Take 200 mg by mouth twice daily. No current facility-administered medications for this visit. ALLERGIES: ALLERGIES Allergen Reactions - Avocado Swelling - Baclofen Other: See Comments Dizziness and full body weakness - Candasartan [Other] Rash - Chocolate Unknown - Ciprofloxacin (Bulk) Anaphylaxis - Grass Pollen Unknown - Indocin [Indomethac* Rash - Iodine Anaphylaxis - Penicillins Rash - Lima Oil Unknown - Propranolol Other: See Comments Severe low bp and kidneys shutting down. - Sulfa (Sulfonamide * Rash, Itching - Valium [Diazepam] Other: See Comments Depression PHYSICAL EXAMINATION: Resp 17 Ht 5' 10 (1.78m) Wt 220 lb (99.8kg) BMI 31.57 kg/(m2). General Appearance: Well appearing, alert, in no acute distress, well-hydrated, well nourished. Skin: Skin color, texture, turgor normal, no suspicious rashes or lesions. Extremities: His incisions well healed. In the seated position his 90? of flexion. 20? of internal and external rotation both passively and actively pain-free. No pain on resisted hip flexion. Calf pain or distal edema. IMAGES: I ordered, obtained and interpreted today AP pelvis and a true lateral of his right hip. Compared to his previous radiographs show his fracture unchanged in position. Slight varus drift which remains unchanged. Hardware remains intact. No acute changes are noted. Impression: Right femoral neck fracture status post CRPP with no acute change. ASSESSMENT AND PLAN: 1. Closed displaced fracture of right femoral neck (HCC) - ICD9: 820.8, ICD10: S72.001A Functional Plan: I advised him that clinically and radiographically I see no acute change to his fixation or position. He's going to continue to go on to uneventful union. I advised him that the next 4-6 weeks will certainly tell the tail but I see no acute damage from his recent fall. He's been trying to get in touch with his neurologist to get follow-up for his seizures. I also advised him To follow-up with his PCP. He'll continue to use his walker. I'll plan on seeing him for his previously scheduled follow-up in 3 weeks' time but certainly sooner if his situation changes or worsens yet again. Return in about 3 weeks (around 12/20/2019). Hiral Castaneda MD [facility] 11-22-2019 [facility] Office Visit (AGPOB1 ) -------- VELIA BAGLEY ([id number]) 1960 M Date Time Provider Department 11/22/19 11:00 AM HIRAL CASTANEDA During your visit today, we recorded the following information about you: Respiration Weight Height 18/minute 103.9 kg 1.753 m Hiral Castaneda MD 11/22/2019 1:03 PM Signed Mr Bagley comes in for HIS 5 week follow-up of his right femoral neck fracture status post CRPP. ? He has been home. He's been ambulating with his walker. States he's been compliant with his restricted weightbearing although watching him go to and from x-ray to obvious he's putting quite a bit of weight on the limb. Relates some lateral achy pain and some occasional groin pain at the end of the day. His wound remains well healed. No pain on passive internal/external rotation. Good strength and no pain on resisted hip flexion. No calf pain or distal edema. ? X-ray interpretation: I ordered, obtained and interpreted today AP pelvis and true lateral for follow-up of his ORIF right hip. Compared to previous radiographs show his fracture maintaining alignment. Slight varus drift unchanged. His screws are intact. Fracture appears well impacted. Impression: Stable follow-up ORIF right hip ? Advised at this point things are doing well. However cautioned him that he needs to continue to restrict his weightbearing. Continue to use his walker. He verbalized understanding. We'll discontinue his home therapy as he is plateaued at this point. We'll see him back in 4 weeks' time. Referring Provider: [facility] [[id number]] Allergies As of Date: 11/22/2019 Noted Allergy Reaction AVOCADO 04/26/2018 7 - Swelling BACLOFEN 02/19/2018 14 - Other: See Comments Comments: Dizziness and full body weakness Candasartan [Other] 08/19/2007 2 - Rash CHOCOLATE 05/17/2018 16 - Unknown CIPROFLOXACIN (BULK) 06/10/2016 10 - Anaphylaxis GRASS POLLEN 04/26/2018 16 - Unknown INDOCIN (INDOMETHACIN SODIUM) 07/24/2006 2 - Rash IODINE 07/24/2006 10 - Anaphylaxis PENICILLINS 07/24/2006 2 - Rash PINE OIL 04/26/2018 16 - Unknown PROPRANOLOL 14 - Other: See Comments Comments: Severe low bp and kidneys shutting down. SULFA (SULFONAMIDE ANTIBIOTICS) 09/02/2017 2 - Rash 9 - Itching VALIUM (DIAZEPAM) 06/15/2017 14 - Other: See Comments Comments: Depression Date Reviewed: 11/22/2019 Reviewed by: Jessica (Alyssa) Little - Fully Assessed Reason for Visit: Established Patient [175] Follow Up [171] Post Op [174] Primary Visit Diagnosis:Closed displaced fracture of right femoral neck (HCC) [S72.001A] Order(s):XR HIP 1V UNIL W PELVIS WHEN PERFORMED (AG) [[id number]] Order #: [id number] FUTURE Prescriptions as of 11/22/2019 Sig: DULOXETINE 60 MG CAPSULE,TUCKER* Take 60 mg by mouth once lamont* OXYCODONE 5 MG TABLET Take 5 mg by mouth every 6 ho* PRIMIDONE 250 MG TABLET Take 250 mg by mouth four nani* TOPIRAMATE 200 MG TABLET Take 200 mg by mouth twice da* VERAPAMIL 120 MG TABLET Take 120 mg by mouth three ti* AMLODIPINE 5 MG TABLET Take 5 mg by mouth once daily. CLONIDINE HCL 0.1 MG TABLET Take 0.1 mg by mouth twice da* INCRUSE ELLIPTA 62.5 MCG/ACTU* Inhale 1 Puff as instructed o* TAMSULOSIN 0.4 MG CAPSULE TAKE 2 CAPSULES BY MOUTH EVER* Patient taking differently: 0.4 mg twice daily. NITROFURANTOIN MONOHYDRATE AND * TAKE 1 CAPSULE BY MOUTH EVERY* PRIMIDONE 50 MG TABLET Take 250 mg by mouth daily at* AMITRIPTYLINE 100 MG TABLET Take 50 mg by mouth daily at * ATORVASTATIN 20 MG TABLET Take 40 mg by mouth once lamont* FASENRA 30 MG/ML SUBCUTANEOUS* Inject 30 mg subcutaneously e* BUDESONIDE-FORMOTEROL HFA 160* Inhale 2 Puffs as instructed * GABAPENTIN 300 MG CAPSULE Take 800 mg by mouth four nani* LOSARTAN 100 MG TABLET Take 100 mg by mouth once kalyan* RIZATRIPTAN 10 MG TABLET Take 10 mg by mouth as needed* NASAL ALLERGY 55 MCG SPRAY AE* FLUTICASONE PROPIONATE 50 MCG* Use 2 Sprays in each nostril * OMEPRAZOLE 20 MG CAPSULE,TUCKER* Take 1 capsule by mouth daily* Patient taking differently: Take 20 mg by mouth twice kalyan* MONTELUKAST 10 MG TABLET Take 10 mg by mouth daily at * POTASSIUM CHLORIDE ER 20 MEQ * Take 20 mEq by mouth four nani* SPIRONOLACTONE 25 MG TABLET Take 25 mg by mouth once lamont* CELECOXIB 200 MG CAPSULE Take 200 mg by mouth four nani* PROAIR HFA INHALATION Inhale 2 Puffs as instructed.* TOPIRAMATE 100 MG TABLET 2 in am, 1 at noon, 1 at even* Patient taking differently: 100 mg. 2 in am, 1 at noon, 2* Problem List As Of Date 11/22/2019 Noted Resolved MIGRAINE VARIANT INTRACTABLE [G43.819] 07/24/2006 CARPAL TUNNEL SYNDROME [G56.00] 04/20/2007 Cervicalgia [M54.2] 04/14/2013 Myalgia and myositis, unspecified [[id number]] 04/14/2013 Iron deficiency anemia [D50.9] 06/10/2016 Weakness [R53.1] 06/24/2016 Lymphadenopathy [R59.1] 02/11/2018 More... Closed displaced fracture of right femoral neck*10/16/2019 Disposition: Return in about 4 weeks (around 12/20/2019). Follow-up and Disposition History Recorded Encounter Status:Closed by HIRAL CASTANEDA MD on 11/22/19 [facility] PROGRESSon 11-22-2019 PROGRESS HNO ID: [id number] Author: Hiral Castaneda Service: ? Author Type: Physician Type: Progress Notes Filed: 11/22/2019 1:03 PM Note Text: Mr Bagley comes in for HIS 5 week follow-up of his right femoral neck fracture status post CRPP. ? He has been home. He's been ambulating with his walker. States he's been compliant with his restricted weightbearing although watching him go to and from x-ray to obvious he's putting quite a bit of weight on the limb. Relates some lateral achy pain and some occasional groin pain at the end of the day. His wound remains well healed. No pain on passive internal/external rotation. Good strength and no pain on resisted hip flexion. No calf pain or distal edema. ? X-ray interpretation: I ordered, obtained and interpreted today AP pelvis and true lateral for follow-up of his ORIF right hip. Compared to previous radiographs show his fracture maintaining alignment. Slight varus drift unchanged. His screws are intact. Fracture appears well impacted. Impression: Stable follow-up ORIF right hip ? Advised at this point things are doing well. However cautioned him that he needs to continue to restrict his weightbearing. Continue to use his walker. He verbalized understanding. We'll discontinue his home therapy as he is plateaued at this point. We'll see him back in 4 weeks' time. [facility] PROGRESSon 11-02-2019 PROGRESS HNO ID: [id number] Author: Hiral Castaneda Service: ? Author Type: Physician Type: Progress Notes Filed: 11/02/2019 10:49 AM Note Text: Mr Bagley comes in for his two-week follow-up of his right femoral neck fracture status post CRPP. He has been home. He's been ambulating with his walker. States he's been compliant with his restricted weightbearing although watching him go to and from x-ray to obvious he's putting quite a bit of weight on the leg. However he states he has hip and leg feel great . His wound is well-healed and are removed his Aquacel dressing today and Steri-Strips. He has no calf pain or distal edema. X-ray interpretation: I ordered, obtained and interpreted today AP pelvis for follow-up of his ORIF right hip. Compared to previous radiographs show his fracture maintaining alignment. Slight varus drift. Her screws are intact. Fracture appears well impacted. Impression: Stable follow-up ORIF right hip Advised at this point things are doing well. However cautioned him that he needs to continue to restrict his weightbearing. Continue to use his walker. He verbalized understanding. We'll see him back in 4 weeks' time. Sooner if he has any issues. [facility] CNOVon 11-01-2019 CNOV Office Visit (AGPOB1 ) -------- VELIA BAGLEY ([id number]) 1960 M Date Time Provider Department 11/01/19 11:00 AM HIRAL CASTANEDA AKIRA During your visit today, we recorded the following information about you: Respiration Weight Height 18/minute 103.9 kg 1.753 m Hiral Csataneda MD 11/02/2019 10:49 AM Signed Mr Bagley comes in for his two-week follow-up of his right femoral neck fracture status post CRPP. He has been home. He's been ambulating with his walker. States he's been compliant with his restricted weightbearing although watching him go to and from x-ray to obvious he's putting quite a bit of weight on the leg. However he states he has hip and leg feel great . His wound is well-healed and are removed his Aquacel dressing today and Steri-Strips. He has no calf pain or distal edema. X-ray interpretation: I ordered, obtained and interpreted today AP pelvis for follow-up of his ORIF right hip. Compared to previous radiographs show his fracture maintaining alignment. Slight varus drift. Her screws are intact. Fracture appears well impacted. Impression: Stable follow-up ORIF right hip Advised at this point things are doing well. However cautioned him that he needs to continue to restrict his weightbearing. Continue to use his walker. He verbalized understanding. We'll see him back in 4 weeks' time. Sooner if he has any issues. Referring Provider: HIRAL CASTANEDA [[id number]] Allergies As of Date: 11/01/2019 Noted Allergy Reaction AVOCADO 04/26/2018 7 - Swelling BACLOFEN 02/19/2018 14 - Other: See Comments Comments: Dizziness and full body weakness Candasartan [Other] 08/19/2007 2 - Rash CHOCOLATE 05/17/2018 16 - Unknown CIPROFLOXACIN (BULK) 06/10/2016 10 - Anaphylaxis GRASS POLLEN 04/26/2018 16 - Unknown INDOCIN (INDOMETHACIN SODIUM) 07/24/2006 2 - Rash IODINE 07/24/2006 10 - Anaphylaxis PENICILLINS 07/24/2006 2 - Rash PINE OIL 04/26/2018 16 - Unknown PROPRANOLOL 14 - Other: See Comments Comments: Severe low bp and kidneys shutting down. SULFA (SULFONAMIDE ANTIBIOTICS) 09/02/2017 2 - Rash 9 - Itching VALIUM (DIAZEPAM) 06/15/2017 14 - Other: See Comments Comments: Depression Date Reviewed: 11/01/2019 Reviewed by: Jessica (Alyssa) Little - Fully Assessed Reason for Visit: Established Patient [175] Follow Up [171] Post Op [174] Primary Visit Diagnosis:Closed displaced fracture of right femoral neck (HCC) [S72.001A] Order(s):XR PELVIS 1V AP [[id number]] Order #: [id number] Prescriptions as of 11/01/2019 Sig: DULOXETINE 60 MG CAPSULE,TUCKER* Take 60 mg by mouth once lamont* OXYCODONE 5 MG TABLET Take 5 mg by mouth every 6 ho* PRIMIDONE 250 MG TABLET Take 250 mg by mouth four nani* TOPIRAMATE 200 MG TABLET Take 200 mg by mouth twice da* VERAPAMIL 120 MG TABLET Take 120 mg by mouth three ti* DOCUSATE SODIUM 100 MG CAPSULE Take 1 capsule by mouth twice* ENOXAPARIN 40 MG/0.4 ML SUBCU* Inject 0.4 mL subcutaneously * AMLODIPINE 5 MG TABLET Take 5 mg by mouth once daily. CLONIDINE HCL 0.1 MG TABLET Take 0.1 mg by mouth twice da* INCRUSE ELLIPTA 62.5 MCG/ACTU* Inhale 1 Puff as instructed o* TAMSULOSIN 0.4 MG CAPSULE TAKE 2 CAPSULES BY MOUTH EVER* Patient taking differently: 0.4 mg twice daily. NITROFURANTOIN MONOHYDRATE AND * TAKE 1 CAPSULE BY MOUTH EVERY* PRIMIDONE 50 MG TABLET Take 250 mg by mouth daily at* AMITRIPTYLINE 100 MG TABLET Take 50 mg by mouth daily at * ATORVASTATIN 20 MG TABLET Take 40 mg by mouth once lamont* FASENRA 30 MG/ML SUBCUTANEOUS* Inject 30 mg subcutaneously e* BUDESONIDE-FORMOTEROL HFA 160* Inhale 2 Puffs as instructed * GABAPENTIN 300 MG CAPSULE Take 800 mg by mouth four nani* LOSARTAN 100 MG TABLET Take 100 mg by mouth once kalyan* RIZATRIPTAN 10 MG TABLET Take 10 mg by mouth as needed* NASAL ALLERGY 55 MCG SPRAY AE* FLUTICASONE PROPIONATE 50 MCG* Use 2 Sprays in each nostril * OMEPRAZOLE 20 MG CAPSULE,TUCKER* Take 1 capsule by mouth daily* Patient taking differently: Take 20 mg by mouth twice kalyan* MONTELUKAST 10 MG TABLET Take 10 mg by mouth daily at * POTASSIUM CHLORIDE ER 20 MEQ * Take 20 mEq by mouth four nani* SPIRONOLACTONE 25 MG TABLET Take 25 mg by mouth once lamont* CELECOXIB 200 MG CAPSULE Take 200 mg by mouth four nani* PROAIR HFA INHALATION Inhale 2 Puffs as instructed.* TOPIRAMATE 100 MG TABLET 2 in am, 1 at noon, 1 at even* Patient taking differently: 100 mg. 2 in am, 1 at noon, 2* Problem List As Of Date 11/01/2019 Noted Resolved MIGRAINE VARIANT INTRACTABLE [G43.819] 07/24/2006 CARPAL TUNNEL SYNDROME [G56.00] 04/20/2007 Cervicalgia [M54.2] 04/14/2013 Myalgia and myositis, unspecified [GFM8625] 04/14/2013 Iron deficiency anemia [D50.9] 06/10/2016 Weakness [R53.1] 06/24/2016 Lymphadenopathy [R59.1] 02/11/2018 More... Closed displaced fracture of right femoral neck*10/16/2019 Disposition: Return in about 3 weeks (around 11/22/2019). Follow-up and Disposition History Recorded Encounter Status:Closed by HIRAL CASTANEDA MD on 11/02/19 [facility] CASE MANAGEMon 10-20-2019 CASE MANAGEM HNO ID: [id number] Author: Cristin HarperRn) BULL Grewal Service: Care Management Author Type: Registered Nurse Type: Care Mgt Progress Note Filed: 10/20/2019 1:28 PM Note Text: CARE MANAGEMENT DISCHARGE NOTE SERVICE DATE: 10/20/2019 SERVICE TIME: 12:02 PM LOS: 4 days Admission Date: 10/16/2019 DISCHARGE ARRANGEMENT [facility] Discharge Arrangement: Home Retirement Care: PT;OT Provider Name: [facility] . Called provider, confirmed accept for home care service, SOC 10/21/19. DME prescription for walker - given to pt by Cortney AGUILAR CAREGIVER ASSESSMENT: Caregiver is ready, willing and able to meet the patient's needs as recommended by the inter-professional team:: Yes Does the patient have an acute stroke diagnosis, or has the patient had a stroke during this admission?: No Patient's transition needs and plan for meeting these needs: Proterro. . Home with son. Son resides with pt HANDOFF COMMUNICATION: Handoff to: Primary Care Physician Primary Care Physician Name/Phone: Dr. Rayo [phone]. Home care: [facility] TRANSPORTATION ARRANGEMENTS: Transportation Arrangements: Car ADDITIONAL CONTACT RESOURCES: Discharge Information Row Name ED to Hosp-Admission (Current) from 10/16/[address] [facility] SIGNATURE: Cristin Grewal RN PATIENT NAME: Velia Bagley DATE: October 20, 2019 TIME: 12:02 PM PAGER/CONTACT #: [phone] [facility] Hemogramon 10-20-2019 Erythrocyte distribution width (RBC) [Ratio] 16.3 % High 11.6-14.4 [facility] Comment on above: Performed By: #### U RIN2 #### [facility] [address] [place] [address] Hematocrit (Bld) [Volume fraction] 33.5 % Low 40.1-51.0 [facility] Comment on above: Performed By: #### U RIN2 #### [place] [address] Hemoglobin (Bld) [Mass/Vol] 10.5 g/dL Low 13.7-17.5 [facility] Comment on above: Performed By: #### U RIN2 #### [facility] [address] [place] [address] MCH (RBC) [Entitic mass] 28.7 pg Normal 25.7-32.2 [facility] Comment on above: Performed By: #### U RIN2 #### [place] [address] MCHC (RBC) [Mass/Vol] 31.3 % Low 32.3-36.5 [facility] Comment on above: Performed By: #### U RIN2 #### [facility] [address] [place] [address] MCV (RBC) [Entitic vol] 91.5 fL Normal 83.2-95.6 [facility] Comment on above: Performed By: #### U RIN2 #### [facility] [address] [place] [address] Platelet mean volume (Bld) [Entitic vol] 9.5 fL Normal 8.7-12.0 [facility] Comment on above: Performed By: #### U RIN2 #### [facility] [address] [place], [place] [address] Platelets (Bld) [#/Vol] 159 thou/cmm Normal 141-365 [facility] Comment on above: Performed By: #### U RIN2 #### [facility] [address] [place], [place] [address] RBC (Bld) [#/Vol] 3.66 mil/cmm Low 4.63-6.08 [facility] Comment on above: Performed By: #### U RIN2 #### [facility] [address] [place], [place] [address] RDW SD 54.6 fl High 36.1-45.8 [facility] Comment on above: Performed By: #### U RIN2 #### [facility] [address] [place], [place] [address] WBC (Bld) [#/Vol] 4.39 thou/cmm Normal 4.23-9.07 [facility] Comment on above: Performed By: #### U RIN2 #### [facility] [address] [place], [place] [address] PROGRESSon 10-20-2019 PROGRESS HNO ID: [id number] Author: Yuriy Stratton Service: Hospital Medicine Author Type: Physician Type: Progress Notes Filed: 10/20/2019 4:07 PM Note Text: DEPARTMENT OF HOSPITAL MEDICINE PROGRESS NOTE SERVICE DATE: 10/20/2019 SERVICE TIME: 930am Hospital Medicine/Primary Attending: Yuriy Stratton, DO NIGHT AND WEEKEND COVERAGE: After 7pm please page [phone] CHIEF COMPLAINT: No new complaints SUBJECTIVE: Pt seen and examined. States his wheezing improved after scheduled breathing treatments and IS. He denies CP, SOB, NVD, fever/chills or abdominal pain. He states he is likely going home today. OBJECTIVE: PHYSICAL EXAM: BP 145/88 Pulse 60 Temp (Src) 97 (Temporal) Resp 16 Ht 5' 9 (1.75m) Wt 229 lb 11.5 oz (104.2kg) SpO2 98% BMI 33.91 kg/(m2). O2 Therapy: Room Air General - AANDOx3, NAD CV - RRR S1 S2, No rubs or gallops RESP - diminished BS with expiratory wheeze bilaterally, no crackles or rales or accessory Muscle use ABD - soft, NT, ND +BS in all quads EXT - R hip bandage clean and dry, good cap refill R foot, no clubbing or cyanosis or signs of compartment syndrome NEURO - CN II-XII grossly intact, no focal neurologic deficits MEDICATIONS: Current Facility-Administered Medications Medication Dose Route Frequency - tiZANidine 8 mg tab(s) (ZANAFLEX) 8 mg ORAL AT BEDTIME - spironolactone 25 mg tab(s) (ALDACTONE) 25 mg ORAL DAILY - celecoxib 200 mg cap(s) (CeleBREX) 200 mg ORAL QID - montelukast 10 mg tab(s) (SINGULAIR) 10 mg ORAL AT BEDTIME - potassium chloride ER 20 mEq tab(s) (K-DUR, KLOR-CON) 20 mEq ORAL QID - losartan 100 mg tab(s) (COZAAR) 100 mg ORAL DAILY - primidone 250 mg tab(s) (MYSOLINE) 250 mg ORAL AT BEDTIME - NaCl 0.9% 2-10 mL 2-10 mL INTRAVENOUS q 12 H - morphine 2 mg injection 2 mg INTRAVENOUS q 3 H PRN - oxyCODONE IR 5 mg tab(s) (ROXICODONE) 5 mg ORAL q 6 H PRN - docusate sodium 100 mg cap(s) (COLACE) 100 mg ORAL BID - glycopyrrolate 15.6 mcg cap(s) and device for inhalation (SEEBRI NEOHALER) 15.6 mcg INHALATION BID - SUMAtriptan 100 mg tab(s) (IMITREX) 100 mg ORAL DIRECTED PRN - pantoprazole DR 40 mg tab(s) (PROTONIX) 40 mg ORAL BID AC (0600/1600) - amitriptyline 50 mg tab(s) (ELAVIL) 50 mg ORAL AT BEDTIME - atorvastatin 40 mg tab(s) (LIPITOR) 40 mg ORAL AT BEDTIME - tamsulosin ER 0.4 mg cap(s) (FLOMAX) 0.4 mg ORAL BID - cloNIDine HCl 0.1 mg tab(s) (CATAPRES) 0.1 mg ORAL BID AC (0600/1600) - amLODIPine 5 mg tab(s) (NORVASC) 5 mg ORAL DAILY - topiramate 200 mg tab(s) (TOPAMAX) 200 mg ORAL DAILY - topiramate 100 mg tab(s) (TOPAMAX) 100 mg ORAL q NOON - topiramate 100 mg tab(s) (TOPAMAX) 100 mg ORAL AT BEDTIME - gabapentin 800 mg cap(s) (NEURONTIN) 800 mg ORAL QID - ipratropium-albuterol 3 mL nebulizer solution (DUONEB) 3 mL INHALATION q 4 H while awake DATA: Diagnostic tests reviewed for today's visit: CBC: Recent Labs 10/20/19 0550 WBC 4.39 RBC 3.66* HB 10.5* HCT 33.5* PLT 159 MCV 91.5 MCH 28.7 MPV 9.5 RDW 16.3* Coags: No results for input(s): INR, APTT in the last 24 hours. Invalid input(s): PT BMP: No results for input(s): NA, K, CHLOR, CO2, BUN, CREAT, GLUC in the last 24 hours. CMP: No results for input(s): NA, K, CHLOR, CO2, BUN, CREAT, GLUC, TPROT, CA, MG, ALBUMIN, TBILI, ALKPHOS, ALT, AST, ANION in the last 24 hours. Cardiac Enzymes: No results for input(s): CK, MB, CKMB, TROPT in the last 24 hours. Liver Function, Amylase, Lipase: No results for input(s): TPROT, ALB, ALT, AST, ALKPHOS, TBILI, AMYLASE, LIPASE, LACTATE in the last 24 hours. MG/PHOS: No results for input(s): MG, P in the last 24 hours. Renal Panel: No results for input(s): ALBUMIN, CREAT, BUN, GLUC, CA, P, CHLOR, K, CO2, NA in the last 24 hours. Heme: No results for input(s): RETICP, ABSRETIC, LD, BRIAN, FE, TIBC, TRANSFERSAT in the last 24 hours. No results found for: UALBCR Assessment/Plan #R hip pain and fracture 2/2 fall POD#3 s/p CRPP -encourage IS -Orthopedic primary management, pain control -PTOT ? #Acute on chronic anemia acute blood loss -no indication for transfusion at this time -monitor cbc daily ? #HTN- continue home regimen ? #Asthma- -duonebs Q4 while awak -encourage IS ? #Constipation- resolved. continue colace ? #Obesity BMI 33- encourage lifestyle modification and weight loss ? VTE Prophylaxis:?Lovenox 40mg Sub Q Daily?? ? Disposition:?HHC, Home PT Plan of care discussed with: Provider, RN, Patient SIGNATURE: Yuriy Stratton DO PATIENT NAME: Velia Bagley DATE: October 20, 2019 TIME: 4:04 PM PAGER/CONTACT #: Team color pager Disclaimer: Portions of this note may have been generated using [employer] voice recognition software. Reasonable efforts were made to correct any dictation errors that resulted due to the programming of this software but some may still be present. [facility] PROGRESS HNO ID: [id number] Author: Elizabeth Ferro Service: Orthopaedic Surgery Author Type: Resident Type: Progress Notes Filed: 10/20/2019 6:30 AM Note Text: ORTHOPAEDIC SURGERY DAILY PROGRESS NOTE ASSESSMENT: 59 year old male POD#3 status-post R hip CRPP. PLAN: -PT/OT: PWB RLE (60 pounds) -DVT PPX: Lovenox 40mg daily x 14 days; SCDs -Dressing: Aquacel - maintain for 10 days -Pain control -Disposition: Home with home PT, possibly today -Appreciate medicine recs-ordered duonebs INTERVAL HPI: No acute events overnight. Pain controlled. Denies fevers and chills. Denies chest pain and shortness of breath. OBJECTIVE: BP 143/89 Pulse 64 Temp 36 ?C (96.8 ?F) (Temporal) Resp 18 Ht 175.3 cm (5' 9 ) Wt 104.2 kg (229 lb 11.5 oz) SpO2 96% BMI 33.92 kg/m? Exam: General: NAD, AOx3 Right Lower Extremity: Dressing dry, clean and intact. There is minimal tenderness to palpation about the incision site. Compartments of the thigh and leg are soft and compressible. The patient tolerates passive stretch of the digits. +DF/PF/EHL. SILT carroll/sa/sp/dp/t. BCR of the digits of the foot. Recent Labs 10/20/19 0550 10/19/19 0935 10/19/19 0512 10/18/19 0506 CREAT -- -- 1.02 -- BUN -- -- 13 -- NA -- -- 141 -- K -- -- 4.3 -- CHLOR -- -- 114* -- CO2 -- -- 19* -- ANION -- -- 8* -- GLUC -- -- 112* -- CA -- -- 8.1* -- WBC 4.39 5.66 4.79 6.93 HB 10.5* 11.7* 11.3* 11.2* HCT 33.5* 37.2* 34.9* 35.0* PLT 159 176 151 168 Imaging: No new imaging. Elizabeth Ferro MD 10/20/2019 6:29 AM [facility] THERAPY NTon 10-20-2019 THERAPY NT HNO ID: [id number] Author: Willam Kruse) Laurita Service: Physical Therapy Author Type: Filemaker Developer Type: Therapy (PT/OT/Speech/Resp) Filed: 10/20/2019 9:57 AM Note Text: -------- Attestation signed by Liv Brock at 10/20/2019 11:55 AM I reviewed and agree with the documentation corresponding to this therapy visit. SIGNATURE: Liv Brock, PT DATE: October 20, 2019 TIME: 11:55 AM -------- Physical Therapy Treatment SERVICE DATE: 10/20/2019 SERVICE TIME: 932 to 946 ROOM: [place] [address] Recommended Discharge Disposition: Home PT Recommended Discharge Disposition Comments: home with home PT, assist of daughter, pending stair and department training, likely POD#2 Anticipated Discharge Needs: Physical Assist at Home;Supervision at Home Physical Assist at Home for: Cleaning;Laundry;Meals;S elf Care;Shopping;Transporta tion Supervision at Home due to: Decreased safety awareness Recommended Discharge Equipment: Wheeled Walker PT Recommendations to Nursing: Ambulate with device;To bathroom;Transfer to/from chair;OOB for Meals;With assist of 1 person Device: Wheeled Walker(PWB 60lbs RLE) PT 6 Clicks Score: 21 Precautions/Activity Restrictions: Weight Bearing Restrictions;Fall Risk;Lines/Tubes/Drains Isolation Type: None Extremity With Weight Bearing Restricted: Right Lower Extremity Right Lower Extremity Weight Bearing Status: PWB(60 lbs) ASSESSMENT : Patient presents with ongoing PT goals---patient just given pain meds for headache, patient with decreased alertness/fatigue, difficulty keeping eyes open, patient only appropriate for bed level activity (LE strengthening, secondary to alertness). continue to recommend home PT to improve strength, ROM, balance,endurance, normalize gait pattern and improved safety and performance in the home back to prior level of function. Patient Disposition at Start of Session: Supine in Bed;Call [facility] in Reach Patient Disposition at End of Session: Supine in Bed;Call [facility] in Reach;Bed Alarm Tolerance Limited By Fatigue;Alertness;Pain(p ain with decreased alertness, just given pain meds) Physical Therapy Problem List: Education Deficit;Pain;Safety Deficits;Decreased Activity Tolerance;Decreased Strength;Functional Mobility Impairment;Balance Impaired Patient /Caregiver Goals: Go Home Goals for Plan of Care: Able to perform HEP with: Verbal Cues Only(R hip fx protocol therapeutic exercise) Transfer supine to/from sit with: Independent Transfer sit to/from stand with: Independent Ambulate with: Independent Distance: 50ft intervals Device: Wheeled Walker Ambulate up and down steps with: Stand By Assistance Number of steps: 4 Device: Rail;Cane;Crutch(es) Goal: patient will verbalize weight bearing restriction and demonstrate compliance with all functional mobility Progress Toward Goals: Progressing as expected Rehab Potential: Good PLAN: Treatment Frequency (times per week): 7;BID Current admission Treatment Interventions: Education;Strengthening; Functional Mobility Training;Balance Training;Neuromuscular Re-education;Pain Management Plan of Care developed with: Patient Additional personnel present during visit: Marie Ulloa TREATMENT INTERVENTIONS: Therapy Diagnosis: Reduced mobility-other;Muscle Weakness (generalized);Unsteadine ss on feet;Abnormalities of gait and mobility-other;General symptoms and signs-other;Difficulty walking-musculoskeletal Interventions Provided: Therapeutic Exercise (65984);Therapeutic Activity (51795) Therapeutic Exercise (94143) Treatment Minutes: 12 1 unit Skilled Intervention(s): Patient completed LE strengthening (ankle pump, quad set, gluteal set, heel slide, hip abd/add to neutral, short arc quad, hip adductor squeeze) x 15 reps with moderate amount of assist, secondary to alertness. Cuing and assist to keep eyes open and focus of strengthening tasks. Patient set up with ice to surgical hip and elevated lower extremity as needed. Therapeutic Activity (41151) Treatment Minutes: 2 0 units Skilled Intervention(s): patient educated on weight bearing precautions of 60# restriction. Patient stated understanding. Patient positioned with RLE elevated on pillow for comfort and edema control, and ice pack to left hip for pain relief. Total Timed Code Treatment Minutes: 14 Total Treatment Time (minutes): 14 SUBJECTIVE: Current Hospital Course: Chart reviewed and no significant medical updates relevant to therapy were noted Reason for Physical Therapy Consult : eval and treat Relevant Past Medical History: HTN, stenosis, asthma, UTI Patient Report: patient stated headache just had pain meds. Nursing made aware of decreased patient alertness, bed alarm on as a precaution Home Environment Patient Lives With: Family Assistance Available: methods time analyst Entry To Home: No Stairs Number Of Stairs Into Home: 4 Number Of Stairs To Bed/Bath: 0 Equipment Owned: Cane Prior Functional Level: Within Functional Limits Prior Functional Level Comments: patient normally independent with self care. Uses a cane to get around. Plans to stay with dtr at d/c, who has 1 story home with 4 steps to enter. OBJECTIVE: Mini Cog Score: 3 (10/18/19 0945) -HLM: 2: Bed activities / dependent transfer Please see discipline specific clinical documentation flowsheet for complete details for this therapy evaluation/treatment. SIGNATURE: Willam Shay PTA PATIENT NAME: Velia Bagley DATE: October 20, 2019 TIME: 9:51 AM [facility] Basic Metabolic Panelon 06- Anion gap [Moles/Vol] 8 mmol/L Low 9-18 [facility] Comment on above: Performed By: #### U RIN2 #### [facility] [address] [place], [place] [address] Calcium [Mass/Vol] 8.1 mg/dL Low 8.5-10.2 [facility] Comment on above: Performed By: #### U RIN2 #### [facility] [address] [place], [place] [address] Chloride [Moles/Vol] 114 mmol/L High 97-105 [facility] Comment on above: Performed By: #### U RIN2 #### [facility] [address] [place], [place] [address] CO2 Blood 19 mmol/L Low 22-30 [facility] Comment on above: Performed By: #### U RIN2 #### [facility] [address] [place], [place] [address] Creatinine [Mass/Vol] 1.02 mg/dL Normal 0.73-1.22 [facility] Comment on above: Performed By: #### U RIN2 #### [facility] [address] [place], [place] [address] Glucose [Mass/Vol] 112 mg/dL High 74-99 [facility] Comment on above: Result Comment: The [employer] (ADA) provides guidance for cutoff values for fasting glucose and random glucose. The ADA defines fasting as no caloric intake for at least 8 hours.Fasting plasma glucose results between 100 to 125 mg/dL indicate increased risk for diabetes (prediabetes). Fasting plasma glucose results greater than or equal to 126 mg/dL meet the criteria for diagnosis of diabetes. In the absence of unequivocal hyperglycemia, results should be confirmed by repeat testing. In a patient with classic symptoms of hyperglycemia or hyperglycemic crisis, random plasma glucose results greater than or equal to 200 mg/dL meet the criteria for diagnosis of diabetes. Reference: Standards of Medical Care in Diabetes 2016; [employer]. Diabetes Care. 2016;39(Suppl 1). Performed By: #### U RIN2 #### [facility] [address] [place], [place] [address] Potassium [Moles/Vol] 4.3 mmol/L Normal 3.7-5.1 [facility] Comment on above: Performed By: #### U RIN2 #### [facility] [address] [place] [address] Sodium [Moles/Vol] 141 mmol/L Normal 136-144 [facility] Comment on above: Performed By: #### U RIN2 #### [facility] [address] [place] [address] Urea nitrogen [Mass/Vol] 13 mg/dL Normal 9-24 [facility] Comment on above: Performed By: #### U RIN2 #### [facility] [address] [place] [address] CASE MANAGEMon 10-19-2019 CASE MANAGEM HNO ID: [id number] Author: Jennifer Garvin (Sw) Service: Care Management Author Type: Insulation Cupola Charger Type: Care Mgt Progress Note Filed: 10/19/2019 1:45 PM Note Text: CARE MANAGEMENT DISCHARGE NOTE SERVICE DATE: 10/19/2019 SERVICE TIME: 1330 LOS: 3 days Admission Date: 10/16/2019 DISCHARGE ARRANGEMENT (list agency and phone number) Discharge Arrangement: Home Care;Home Home Care: PT;OT Provider Name: [facility] Phone: CAREGIVER ASSESSMENT: Caregiver is ready, willing and able to meet the patient's needs as recommended by the inter-professional team:: Yes Does the patient have an acute stroke diagnosis, or has the patient had a stroke during this admission?: No Patient's transition needs and plan for meeting these needs: Plan to return home HANDOFF COMMUNICATION: Handoff to: Primary Care Physician TRANSPORTATION ARRANGEMENTS: Transportation Arrangements: Car ADDITIONAL CONTACT RESOURCES: Pt from home with son however will stay with his daughter at Address [address] [place] [address] at discharge. [facility] accepted and pt has DME at home. SIGNATURE: EDI Neri PATIENT NAME: Velia Bagley DATE: October 19, 2019 TIME: 1:44 PM PAGER/CONTACT #: [phone] [facility] CONSULTon 10-19-2019 CONSULT HNO ID: [id number] Author: Mathew Yanez Service: Palliative Care Author Type: Physician Type: Consults Filed: 10/19/2019 8:37 AM Note Text: VELIA BAGLEY 59 year old HEMATOLOGY CONSULTATION: History of DVT, history of TIA, 24 HOUR COMFORT MEDICATIONS: Celecoxib 200 mg 4 times a day Gabapentin 800 mg qid Morphine 2 mg IV ?0 Oxycodone 5 mg ?1 Tizanidine 8 mg ?1 Anticoagulant Therapy: Lovenox 30 mg twice a day Subjective HPI: 51-year-old male, status post fall, admitted on 10/16/2019, diagnosed with an acute right hip fracture, with multiple views of the right hip showing a completely displaced femoral neck fracture, joint space is well-maintained, no bony lesions or cortical erosions. He underwent total hip arthroplasty on 10/15 Positive history of migraine, iron deficiency anemia, lumbar spinal stenosis, TIA, history of prior DVT,left common femoral vein, in November 2017, suboptimally treated with apixaban in the past. Previously evaluated for inguinal lymphadenopathy, with negative biopsy. When he was first diagnosed with a DVT in 11/14/2016, his legs were swollen, hot to touch, and had a difficult time standing up and he went into [facility] on 10/28/2016. The first time he went in (initial scan), they did an ultrasound and they did not note a DVT scan. He then left the hospital, and he went back and saw her primary care physician, and they had recommended that he go into the ED to repeat the scan, which demonstrated a DVT on 11/14/2016. They prescribed Eliquis 5 mg BID (was not on any anticoagulation prior to this), and he has been on this ever since. Has not missed any doses that he is aware of. He went and saw Dr. Matthews at on 01/11/2018, and the plan from her end was to address the essential tremor in the arms, legs and body. As he saw a movement specialist, Dr. Sanches, who started propanolol due to the interaction of Eliquis and would like us to address a different blood thinner that may not interact with primidone. ? He notes that he previously had an additional blood clot/DVT in 1976 after one of his knee surgeries. This was treated via extraction of the blood clot in the erlinda-operative setting. ? DVT Scan history: Patient initially had a DVT scan on 10/28/2016 at that demonstrated no DVT in bilateral lower extremities . Thereafter, he had a repeat US of the left lower extremity which demonstrated a small segment of nonocclusive thrombus in the left common femoral vein on 11/14/2016. Repeat US venous doppler on 05/25/2017 demonstrated a stable nonocclusive thrombus in the deep left common femoral and superficial left small saphenous veins . The most recent US venous doppler was on 11/03/2017 which demonstrated a nonocclusive, chronic DVT within the left common femoral vein and a not occlusive, chronic superficial thrombus within the bleft small saphenous vein, and nonspecific prominent groin lymph nodes bilaterally . ? Apixaban was discontinued in January 2018, and at that time he was placed on aspirin 81 mg per day Current Facility-Administered Medications Medication Dose Route Frequency Provider Last Rate Last Dose - enoxaparin 30 mg injection (LOVENOX) 30 mg SUBCUTANEOUS BID Hiral Ren Vrabec 30 mg at 10/18/192054 - ipratropium-albuterol 3 mL nebulizer solution (DUONEB) 3 mL INHALATION q 4 H PRN Yuriy Fetsko - glycopyrrolate 15.6 mcg cap(s) and device for inhalation (SEEBRI NEOHALER) 15.6 mcg INHALATION BID Elizabeth Peterson Ferro 15.6 mcg at 10/18/192053 - SUMAtriptan 100 mg tab(s) (IMITREX) 100 mg ORAL DIRECTED PRN Elizabeth Ferro - pantoprazole DR 40 mg tab(s) (PROTONIX) 40 mg ORAL BID AC () Elizabeth Peterson Ferro 40 mg at 10/19/19599 - amitriptyline 50 mg tab(s) (ELAVIL) 50 mg ORAL AT BEDTIME Elizabeth Peterson Ferro 50 mg at 10/18/192053 - atorvastatin 40 mg tab(s) (LIPITOR) 40 mg ORAL AT BEDTIME Elizabeth A Ferro 40 mg at 10/18/192053 - tamsulosin ER 0.4 mg cap(s) (FLOMAX) 0.4 mg ORAL BID Elizabeth A Ferro 0.4 mg at 10/18/192054 - cloNIDine HCl 0.1 mg tab(s) (CATAPRES) 0.1 mg ORAL BID AC () Elizabeth Peterson Ferro 0.1 mg at 10/19/19 0510 - amLODIPine 5 mg tab(s) (NORVASC) 5 mg ORAL DAILY Elizabeth Peterson Ferro 5 mg at 06/16/20 0815 - topiramate 200 mg tab(s) (TOPAMAX) 200 mg ORAL DAILY Elizabeth A Ferro 200 mg at 10/18/19 0813 - topiramate 100 mg tab(s) (TOPAMAX) 100 mg ORAL q NOON Elizabeth A Ferro 100 mg at 10/18/19 1220 - topiramate 100 mg tab(s) (TOPAMAX) 100 mg ORAL AT BEDTIME Elizabeth A Ferro 100 mg at 10/18/192053 - gabapentin 800 mg cap(s) (NEURONTIN) 800 mg ORAL QID Elizabeth A Ferro 800 mg at 10/18/192053 - tiZANidine 8 mg tab(s) (ZANAFLEX) 8 mg ORAL AT BEDTIME Elizabeth A Ferro 8 mg at 10/18/192054 - spironolactone 25 mg tab(s) (ALDACTONE) 25 mg ORAL DAILY Elizabeth Peterson Ferro 25 mg at 10/18/19814 - celecoxib 200 mg cap(s) (CeleBREX) 200 mg ORAL QID Elizabeth A Ferro 200 mg at 10/18/192054 - montelukast 10 mg tab(s) (SINGULAIR) 10 mg ORAL AT BEDTIME Elizabeth A Ferro 10 mg at 10/18/192053 - potassium chloride ER 20 mEq tab(s) (K-DUR, KLOR-CON) 20 mEq ORAL QID Elizabeth A Ferro 20 mEq at 10/18/192054 - losartan 100 mg tab(s) (COZAAR) 100 mg ORAL DAILY Elizabeth Peterson Ferro 100 mg at 10/18/19812 - primidone 250 mg tab(s) (MYSOLINE) 250 mg ORAL AT BEDTIME Elizabeth A Ferro 250 mg at 10/18/192053 - NaCl 0.9% 2-10 mL 2-10 mL INTRAVENOUS q 12 H Elizabeth A Ferro 3 mL at 10/18/192055 - morphine 2 mg injection 2 mg INTRAVENOUS q 3 H PRN Elizabeth A Ferro 2 mg at 10/17/19 1031 - oxyCODONE IR 5 mg tab(s) (ROXICODONE) 5 mg ORAL q 6 H PRN Elizabeth Peterson Ferro 5 mg at 10/18/19 0941 - docusate sodium 100 mg cap(s) (COLACE) 100 mg ORAL BID Elizabeth Ferro 100 mg at 10/18/192053 amLODIPine (NORVASC) 5 mg tablet, Take 5 mg by mouth once daily., Disp: , Rfl: cloNIDine HCl (CATAPRES) 0.1 mg tablet, Take 0.1 mg by mouth twice daily before meals (0600/1600)., Disp: , Rfl: umeclidinium (INCRUSE ELLIPTA) 62.5 mcg/actuation inhaler, Inhale 1 Puff as instructed once daily., Disp: , Rfl: tamsulosin ER (FLOMAX) 0.4 mg cap, TAKE 2 CAPSULES BY MOUTH EVERY DAY (Patient taking differently: 0.4 mg twice daily. ), Disp: 60 capsule, Rfl: 10 nitrofurantoin monohydrate and macrocrystal (MACROBID) 100 mg capsule, TAKE 1 CAPSULE BY MOUTH EVERY DAY, Disp: 30 capsule, Rfl: 10 primidone (MYSOLINE) 50 mg tablet, Take 250 mg by mouth daily at bedtime. , Disp: , Rfl: amitriptyline (ELAVIL) 100 mg tablet, Take 50 mg by mouth daily at bedtime. , Disp: , Rfl: atorvastatin (LIPITOR) 20 mg tablet, Take 40 mg by mouth once daily. , Disp: , Rfl: FASENRA 30 mg/mL injection, Inject 30 mg subcutaneously every 8 weeks. Next one due 11/15/19 , Disp: , Rfl: budesonide-formoterol (SYMBICORT) 160-4.5 mcg/actuation inhaler, Inhale 2 Puffs as instructed twice daily. , Disp: , Rfl: gabapentin (NEURONTIN) 300 mg capsule, Take 800 mg by mouth four times daily. , Disp: , Rfl: , 10/17/2019 at Unknown time losartan (COZAAR) 100 mg tablet, Take 100 mg by mouth once daily. , Disp: , Rfl: rizatriptan (MAXALT) 10 mg tablet, Take 10 mg by mouth as needed. , Disp: , Rfl: fluticasone (FLONASE) 50 mcg/actuation nasal spray, Use 2 Sprays in each nostril once daily., Disp: 1 Bottle, Rfl: 11 omeprazole (PRILOSEC) 20 mg capsule, Take 1 capsule by mouth daily before dinner. 30 MINUTES BEFORE DINNER. (Patient taking differently: Take 20 mg by mouth twice daily. 30 MINUTES BEFORE DINNER. ), Disp: 30 capsule, Rfl: 11 montelukast (SINGULAIR) 10 mg tablet, Take 10 mg by mouth daily at bedtime., Disp: , Rfl: potassium chloride ER (K-DUR, KLOR-CON) 20 mEq tablet, Take 20 mEq by mouth four times daily. , Disp: , Rfl: spironolactone (ALDACTONE) 25 mg tablet, Take 25 mg by mouth once daily., Disp: , Rfl: celecoxib (CELEBREX) 200 mg capsule, Take 200 mg by mouth four times daily. , Disp: , Rfl: ALBUTEROL SULFATE (PROAIR HFA INHALATION), Inhale 2 Puffs as instructed. Prn SOB, Disp: , Rfl: topiramate (TOPAMAX) 100 mg tablet, 2 in am, 1 at noon, 1 at evening and 2 at bedtime (600 mg/day total) (Patient taking differently: 100 mg. 2 in am, 1 at noon, 2 at evening and 1 at bedtime (600 mg/day total)), Disp: , Rfl: NASAL ALLERGY 55 mcg nasal inhaler, , Disp: , Rfl: Social History Tobacco Use - Smoking status: Never Smoker - Smokeless tobacco: Never Used - Tobacco comment: second hand smoke from father. Substance Use Topics - Alcohol use: No - Drug use: No FAMILY HISTORY Problem Relation Age of Onset - Emphysema Mother - Blood Clots Mother required IVC filter. Multiple blood clots before (3-4). - Hypertension Mother - Heart Failure Father 72 of CHF. 2 OR before that - Parkinson?s Disease Father 68 - Prostate Cancer Brother - Parkinson?s Disease Paternal Grandfather - Diabetes No Family History PAST SURGICAL HISTORY Procedure Laterality Date - LAMINECTOMY,LUMBAR 03/2016 L4-L5 - PAST SURGICAL HISTORY OF x 16 surgeries surgery to repair bone in knee cap and multiple arthroscopies and debridements - PAST SURGICAL HISTORY OF 2018 bronchoscopy - PERCUT FIX PROX/NECK FEMUR Right 10/17/2019 ROS: All of the following reviewed and negative except as noted below: GENERAL: no fever, chills, sweats, weight loss, fatigue, generalized weakness HEENT: no headache, vision changes, eye discomfort, hearing change, ear discomfort, sinus pain, nasal discharge or congestion, oral lesions, soreness, dental problem NECK: no adenopathy, discomfort, change in ROM CHEST: no shortness of breath, dyspnea on exertion, wheezing, cough, sputum production or chest pain HEART: no chest pain, palpitations, syncope ABDOMEN: no nausea, vomiting, constipation, diarrhea, abdominal pain : no dysuria, urgency, frequency, history of stones, incontinence NEURO: no confusion or alteration in consciousness, slurred speech, seizure, focal weakness EXTREMITIES: no new pain, edema, change in ROM HEME: no new adenopathy, bruises, petechiae PSYCH: no depression, anxiety, agitation PHYSICAL EXAMINATION: see below for new or abnormal findings BP 137/73 Pulse 65 Temp 36.7 ?C (98.1 ?F) (Oral) Resp 18 Ht 175.3 cm (5' 9 ) Wt 104.2 kg (229 lb 11.5 oz) SpO2 95% BMI 33.92 kg/m? BMI 33.92 kg/(m2) Date 10/17/19699 - 10/18/19 0659 Shift 1620-8240 1765-4500 2932-0242 24 Hour Total INTAKE Shift Total OUTPUT Urine 800 800 Shift Total 800 800 Weight (kg) 104.2 104.2 104.2 104.2 Date 10/16/19699 - 10/17/1965810/17/19699 - 10/18/19 0659 Shift 5000-6538 3848-6286 4896-1872 24 Hour Total 9899-4016 1811-8272 3968-3084 24 Hour Total INTAKE Shift Total OUTPUT Urine 800 800 Void (ml) 800 800 Shift Total 800 800 Weight (kg) 103.9 104.2 104.2 104.2 104.2 104.2 104.2 GENERAL: well nourished and developed; no acute distress; alert and oriented x 3; intact judgement and insight HEENT: no evidence of trauma; cranial nerves intact; eyes clear EOMI; no hearing deficits apparent; nasal passages unremarkable; throat and mucous membranes clear NECK: supple without lymphadenopathy; no JVD; no thyromegaly CHEST: clear bilaterally to auscultation; normal chest movement; no rales or rhonchi HEART: regular rate and rhythm, normal S1 and S2, no murmurs, clicks, rubs, or gallops ABDOMEN: soft; nondistended; bowel sounds present; no hepatomegaly; no splenomegaly; no tenderness EXTREMITIES: no evidence of clubbing; no cyanosis; no deformity; no joint effusion; no edema NEURO: cranial nerves intact; no focal deficits; no confusion; no tremor; sensorium normal SKIN: no rash; no skin breakdown; no decubitus lesions HEME: no bruising; no adenopathy PSYCH: no evidence of depression; no anxiety; no agitation; no apparent hallucinations PAIN PSYCHIATRIC EXAM: GENERAL: alert, oriented to person, place, time JUDGMENT AND INSIGHT: intact APPEARANCE: neatly groomed DEMEANOR: coooperative, not hostile, mistrustful, preoccupied, or demanding ACTIVITY: normal, not hyperactive or hypoactive, no tremors, tics EYE CONTACT: normal SPEECH: normal, rate, volume, articulation, coherence, spontaneity MOOD: normal, without overt sadness, grief, anxiety, appropriate to situation IDEATION: normal and without suicidal or homicidal ideation MEMORY: intact ABNORMAL/NEW FINDINGS: NONE RADIOLOGY/DIAGNOSTICS: LABORATORY: CBC: No results for input(s): WBC, RBC, HB, HCT, PLT, MCV, MCH, MPV, RDW in the last 24 hours. CMP: No results for input(s): NA, K, CHLOR, CO2, BUN, CREAT, GLUC, TPROT, CA, MG, ALBUMIN, TBILI, ALKPHOS, ALT, AST, ANION in the last 24 hours. Heme: No results for input(s): RETICP, ABSRETIC, LD, BRIAN, FE, TIBC, TRANSFERSAT in the last 24 hours. ASSESSMENT ACTIVE PROBLEM LIST Variants of Migraine, Not Elsewhere Classified, With Intractable Migraine, So Stated, Without Mention of Status Migrainosus Carpal Tunnel Syndrome Cervicalgia Myalgia and Myositis, Unspecified Iron Deficiency Anemia Weakness Lymphadenopathy Closed Displaced Fracture of Right Femoral Neck (Hcc) PLAN: Right femoral neck fracture that is post fall Remote history of left lower extremity DVT 11/2016, interrupted course of apixaban therapy. Completed 1 year plus of apixaban therapy January 2018 at which time he was switched to aspirin. Aspirin has since been discontinued. No family history of DVT Patient with history of movement disorder on primidone (which interacts with apixaban) Agree with lovenox currently at 30 mg BID which is aggressive prophylaxis. This can be discontinued when he is ambulating reasonably well. Mathew Yanez M.D. Normal [facility] Hemogramon 10-19-2019 Erythrocyte distribution width (RBC) [Ratio] 16.5 % High 11.6-14.4 [facility] Comment on above: Performed By: #### C BC1 #### [facility] [address] [place], [place] [address] Hematocrit (Bld) [Volume fraction] 37.2 % Low 40.1-51.0 [facility] Comment on above: Performed By: #### C BC1 #### [facility] [address] [place], [place] [address] Hemoglobin (Bld) [Mass/Vol] 11.7 g/dL Low 13.7-17.5 [facility] Comment on above: Performed By: #### C BC1 #### [facility] [address] [place], [place] [address] MCH (RBC) [Entitic mass] 28.7 pg Normal 25.7-32.2 [facility] Comment on above: Performed By: #### C BC1 #### [facility] [address] [place], [place] [address] MCHC (RBC) [Mass/Vol] 31.5 % Low 32.3-36.5 [facility] Comment on above: Performed By: #### C BC1 #### [facility] [address] [place], [place] [address] MCV (RBC) [Entitic vol] 91.2 fL Normal 83.2-95.6 [facility] Comment on above: Performed By: #### C BC1 #### [facility] [address] [place], [place] [address] Platelet mean volume (Bld) [Entitic vol] 9.7 fL Normal 8.7-12.0 [facility] Comment on above: Performed By: #### C BC1 #### [facility] [address] [place], [place] [address] Platelets (Bld) [#/Vol] 176 thou/cmm Normal 141-365 [facility] Comment on above: Performed By: #### C BC1 #### [facility] [address] [place] [address] RBC (Bld) [#/Vol] 4.08 mil/cmm Low 4.63-6.08 [facility] Comment on above: Performed By: #### C BC1 #### [facility] [address] [place] [address] RDW SD 53.8 fl High 36.1-45.8 [facility] Comment on above: Performed By: #### C BC1 #### [facility] [address] [place] [address] WBC (Bld) [#/Vol] 5.66 thou/cmm Normal 4.23-9.07 [facility] Comment on above: Performed By: #### C BC1 #### [facility] [address] [place] [address] Erythrocyte distribution width (RBC) [Ratio] 16.5 % High 11.6-14.4 [facility] Comment on above: Performed By: #### C BC1 #### [facility] [address] [place] [address] Hematocrit (Bld) [Volume fraction] 34.9 % Low 40.1-51.0 [facility] Comment on above: Performed By: #### C BC1 #### [facility] [address] [place] [address] Hemoglobin (Bld) [Mass/Vol] 11.3 g/dL Low 13.7-17.5 [facility] Comment on above: Performed By: #### C BC1 #### [facility] [address] [place] [address] MCH (RBC) [Entitic mass] 29.4 pg Normal 25.7-32.2 [facility] Comment on above: Performed By: #### C BC1 #### [facility] [address] [place] [address] MCHC (RBC) [Mass/Vol] 32.4 % Normal 32.3-36.5 [facility] Comment on above: Performed By: #### C BC1 #### [facility] [address] [place] [address] MCV (RBC) [Entitic vol] 90.9 fL Normal 83.2-95.6 [facility] Comment on above: Performed By: #### C BC1 #### [facility] [address] [place], [place] [address] Platelet mean volume (Bld) [Entitic vol] 9.4 fL Normal 8.7-12.0 [facility] Comment on above: Performed By: #### C BC1 #### [facility] [address] [place], [place] [address] Platelets (Bld) [#/Vol] 151 thou/cmm Normal 141-365 [facility] Comment on above: Performed By: #### C BC1 #### [facility] [address] [place] [id number] RBC (Bld) [#/Vol] 3.84 mil/cmm Low 4.63-6.08 [facility] Comment on above: Performed By: #### C BC1 #### [facility] [address] [place] [address] RDW SD 54.7 fl High 36.1-45.8 [facility] Comment on above: Performed By: #### C BC1 #### [facility] [address] [place], [place] [address] WBC (Bld) [#/Vol] 4.79 thou/cmm Normal 4.23-9.07 [facility] Comment on above: Performed By: #### C BC1 #### [place] [id number] MDRD GFRon 10-19-2019 GFR/1.73 sq M predicted among non-blacks MDRD (S/P/Bld) [Vol rate/Area] mL/min/{1.73_m2} Normal >60mL/min/1. 73m2 [facility] Comment on above: Result Comment: If t he patient is , multiply the result by 1.210. Performed By: #### U RIN2 #### [place] [id number] PLAN OF CAREon 10-19-2019 PLAN OF CARE HNO ID: [id number] Author: Sydnee Vincent (Autopilot) Service: Pharmacy Author Type: ? Type: Plan of Care Filed: 10/19/2019 1:50 PM Note Text: DIRECTORY COMPILER BEDSIDE DELIVERY SURVEY 1. Patient to use [facility] Bedside Delivery - NO prefer own pharmacy Insurance Information as follows: 2. Insurance card on file - YES 3. Credit card for payment - N/A Patient declined bedside delivery of home going meds, however going on Lovenox, will check again on day of DC. Sydnee Vincent (Autopilot) Extension [phone], or [phone] Normal [facility] PROGRESSon 10-19-2019 PROGRESS HNO ID: [id number] Author: Yuriy Stratton Service: Hospital Medicine Author Type: Physician Type: Progress Notes Filed: 10/19/2019 4:08 PM Note Text: DEPARTMENT OF HOSPITAL MEDICINE PROGRESS NOTE SERVICE DATE: 10/19/2019 SERVICE TIME: 4:04 PM Hospital Medicine/Primary Attending: Yuriy Stratton, DO NIGHT AND WEEKEND COVERAGE: After 7pm please page [phone] CHIEF COMPLAINT: R hip pain, wheeze SUBJECTIVE: Pt seen and examined. Complains of some R lateral leg/hip pain, denies CP, NVD, headache, fever/chills or abdominal pain. He complains of some wheeze/sob from his asthma, he states he gets similar episodes at home. Tolerating PO diet. Had BM. OBJECTIVE: PHYSICAL EXAM: BP 133/80 Pulse 64 Temp (Src) 97.7 (Oral) Resp 18 Ht 5' 9 (1.75m) Wt 229 lb 11.5 oz (104.2kg) SpO2 96% BMI 33.91 kg/(m2). O2 Therapy: Room Air General - AANDOx3, NAD CV - RRR S1 S2, No rubs or gallops RESP - diminished BS with expiratory wheeze bilaterally, no crackles or rales or accessory Muscle use ABD - soft, NT, ND +BS EXT - R hip bandage clean and dry, go cap refill R foot, no clubbing or cyanosis or sign of compartment syndrome NEURO - CN II-XII grossly intact, no focal deficits MEDICATIONS: Current Facility-Administered Medications Medication Dose Route Frequency - tiZANidine 8 mg tab(s) (ZANAFLEX) 8 mg ORAL AT BEDTIME - spironolactone 25 mg tab(s) (ALDACTONE) 25 mg ORAL DAILY - celecoxib 200 mg cap(s) (CeleBREX) 200 mg ORAL QID - montelukast 10 mg tab(s) (SINGULAIR) 10 mg ORAL AT BEDTIME - potassium chloride ER 20 mEq tab(s) (K-DUR, KLOR-CON) 20 mEq ORAL QID - losartan 100 mg tab(s) (COZAAR) 100 mg ORAL DAILY - primidone 250 mg tab(s) (MYSOLINE) 250 mg ORAL AT BEDTIME - NaCl 0.9% 2-10 mL 2-10 mL INTRAVENOUS q 12 H - morphine 2 mg injection 2 mg INTRAVENOUS q 3 H PRN - oxyCODONE IR 5 mg tab(s) (ROXICODONE) 5 mg ORAL q 6 H PRN - docusate sodium 100 mg cap(s) (COLACE) 100 mg ORAL BID - glycopyrrolate 15.6 mcg cap(s) and device for inhalation (SEEBRI NEOHALER) 15.6 mcg INHALATION BID - SUMAtriptan 100 mg tab(s) (IMITREX) 100 mg ORAL DIRECTED PRN - pantoprazole DR 40 mg tab(s) (PROTONIX) 40 mg ORAL BID AC (06) - amitriptyline 50 mg tab(s) (ELAVIL) 50 mg ORAL AT BEDTIME - atorvastatin 40 mg tab(s) (LIPITOR) 40 mg ORAL AT BEDTIME - tamsulosin ER 0.4 mg cap(s) (FLOMAX) 0.4 mg ORAL BID - cloNIDine HCl 0.1 mg tab(s) (CATAPRES) 0.1 mg ORAL BID AC () - amLODIPine 5 mg tab(s) (NORVASC) 5 mg ORAL DAILY - topiramate 200 mg tab(s) (TOPAMAX) 200 mg ORAL DAILY - topiramate 100 mg tab(s) (TOPAMAX) 100 mg ORAL q NOON - topiramate 100 mg tab(s) (TOPAMAX) 100 mg ORAL AT BEDTIME - gabapentin 800 mg cap(s) (NEURONTIN) 800 mg ORAL QID - enoxaparin 30 mg injection (LOVENOX) 30 mg SUBCUTANEOUS BID - ipratropium-albuterol 3 mL nebulizer solution (DUONEB) 3 mL INHALATION q 4 H while awake DATA: Diagnostic tests reviewed for today's visit: CBC: Recent Labs 10/19/19 0935 WBC 5.66 RBC 4.08* HB 11.7* HCT 37.2* PLT 176 MCV 91.2 MCH 28.7 MPV 9.7 RDW 16.5* Coags: No results for input(s): INR, APTT in the last 24 hours. Invalid input(s): PT BMP: Recent Labs 10/19/19 0512 NA 141 K 4.3 CHLOR 114* CO2 19* BUN 13 CREAT 1.02 GLUC 112* CMP: Recent Labs 10/19/19 0512 NA 141 K 4.3 CHLOR 114* CO2 19* BUN 13 CREAT 1.02 GLUC 112* CA 8.1* ANION 8* Cardiac Enzymes: No results for input(s): CK, MB, CKMB, TROPT in the last 24 hours. Liver Function, Amylase, Lipase: No results for input(s): TPROT, ALB, ALT, AST, ALKPHOS, TBILI, AMYLASE, LIPASE, LACTATE in the last 24 hours. MG/PHOS: No results for input(s): MG, P in the last 24 hours. Renal Panel: Recent Labs 10/19/19 0512 CREAT 1.02 BUN 13 GLUC 112* CA 8.1* CHLOR 114* K 4.3 CO2 19* NA 141 Heme: No results for input(s): RETICP, ABSRETIC, LD, BRIAN, FE, TIBC, TRANSFERSAT in the last 24 hours. No results found for: UALBCR Assessment/Plan #R hip pain and fracture 2/2 fall POD#2 s/p CRPP -encourage IS -Orthopedic primary management, pain control -PTOT ? #Acute on chronic anemia acute blood loss -no indication for transfusion at this time -monitor cbc daily ? #HTN- continue home regimen ? #Asthma- mild wheeze bilaterally. Will schedule duonebs Q4 while awake and there is no IS at bedside, so I asked nurse to obtain IS and encouraged patient to use it 10x every hour ? #Constipation- resolved, had BM. continue colace ? #Obesity BMI 33- encourage lifestyle modification and weight loss ? VTE Prophylaxis: Lovenox 40mg Sub Q Daily ? Disposition: [facility], Home PT Plan of care discussed with: Provider, RN, Patient SIGNATURE: Yuriy Stratton DO PATIENT NAME: Velia Bagley DATE: October 19, 2019 TIME: 4:04 PM PAGER/CONTACT #: Team color pager Disclaimer: Portions of this note may have been generated using [employer] voice recognition software. Reasonable efforts were made to correct any dictation errors that resulted due to the programming of this software but some may still be present. [facility] PROGRESS HNO ID: [id number] Author: Hiral Castaneda Service: Orthopaedic Surgery Author Type: Physician Type: Progress Notes Filed: 10/19/2019 12:06 PM Note Text: I evaluated the patient and personally participated in the antonio components. I agree with the resident's findings and plan with the following revisions and/or additions: Doing well. Minor asthma exacerbation last evening which he states is normal. Voiding trial today. Discharge plan for home. Lovenox 40 mg Daily X14 days . Signature: Hiral Castaneda MD Service Date: 10/19/2019 Service Time: 12:05 PM ORTHOPAEDIC SURGERY DAILY PROGRESS NOTE ASSESSMENT: 59 year old male POD#2 status-post R hip CRPP. PLAN: -PT/OT: PWB RLE (60 pounds) -DVT PPX: Lovenox 30 mg BID; SCDs -Antibiotics: Complete -Dressing: Aquacel - maintain for 10 days -Acute blood loss anemia: AM hemoglobin of 11.2; asymptomatic - will continue to monitor -Pain control -Guthrie maintained yesterday due to neurogenic bladder, remove today -Disposition: Home with home PT, possibly today INTERVAL HPI: No acute events overnight. Pain controlled. Denies fevers and chills. Denies chest pain and shortness of breath. OBJECTIVE: BP 137/73 Pulse 65 Temp 36.7 ?C (98.1 ?F) (Oral) Resp 18 Ht 175.3 cm (5' 9 ) Wt 104.2 kg (229 lb 11.5 oz) SpO2 95% BMI 33.92 kg/m? Exam: General: NAD, AOx3 Right Lower Extremity: Dressing dry, clean and intact. There is minimal tenderness to palpation about the incision site. Compartments of the thigh and leg are soft and compressible. The patient tolerates passive stretch of the digits. +DF/PF/EHL. SILT carroll/sa/sp/dp/t. BCR of the digits of the foot. Recent Labs 10/18/19 0506 10/16/192042 CREAT -- 0.94 BUN -- 16 NA -- 141 K -- see below CHLOR -- 110* CO2 -- 21* ANION -- 10 GLUC -- 104* CA -- 8.6 WBC 6.93 5.28 HB 11.2* 13.5* HCT 35.0* 41.4 PLT 168 196 Imaging: No new imaging. Alex Mandujano MD Orthopaedic Surgery, PGY-3 Pager: [phone] Ortho Pager: [phone] [facility] THERAPY NTon 10-19-2019 THERAPY NT HNO ID: [id number] Author: Saira Berry Service: Physical Therapy Author Type: Filemaker Developer Type: Therapy (PT/OT/Speech/Resp) Filed: 10/19/2019 3:36 PM Note Text: -------- Attestation signed by Liv Brock at 10/19/2019 5:06 PM I reviewed and agree with the documentation corresponding to this therapy visit. SIGNATURE: Liv Brock, PT DATE: October 19, 2019 TIME: 5:06 PM -------- Physical Therapy Treatment SERVICE DATE: 10/19/2019 SERVICE TIME: 1505 to 1530 ROOM: [id number] Recommended Discharge Disposition: Home PT Recommended Discharge Disposition Comments: home with home PT, assist of daughter, pending stair and department training, likely POD#2 Anticipated Discharge Needs: Physical Assist at Home;Supervision at Home Physical Assist at Home for: Cleaning;Laundry;Meals;S elf Care;Shopping;Transporta tion Supervision at Home due to: Decreased safety awareness Recommended Discharge Equipment: Wheeled Walker PT Recommendations to Nursing: Ambulate with device;To bathroom;Transfer to/from chair;OOB for Meals;With assist of 1 person Device: Wheeled Walker(PWB 60lbs RLE) PT 6 Clicks Score: 21 Precautions/Activity Restrictions: Weight Bearing Restrictions;Fall Risk;Lines/Tubes/Drains Isolation Type: None Extremity With Weight Bearing Restricted: Right Lower Extremity Right Lower Extremity Weight Bearing Status: PWB(60 lbs) ASSESSMENT : Patient Disposition at Start of Session: Supine in Bed;Call [facility] in Reach Patient Disposition at End of Session: Supine in Bed;Call [place] in Reach Tolerated Full Session Without limitations Patient making progress toward goals with improvement with breathing and gait endurance. Cues to adhere to partial weight bearing on his right leg and to complete exercises correctly. Anticipate discharge to home tomorrow. Goals ongoing. Physical Therapy Problem List: Education Deficit;Pain;Safety Deficits;Decreased Activity Tolerance;Decreased Strength;Functional Mobility Impairment;Balance Impaired Patient /Caregiver Goals: Go Home Goals for Plan of Care: Able to perform HEP with: Verbal Cues Only(R hip fx protocol therapeutic exercise) Transfer supine to/from sit with: Independent Transfer sit to/from stand with: Independent Ambulate with: Independent Distance: 50ft intervals Device: Wheeled Walker Ambulate up and down steps with: Stand By Assistance Number of steps: 4 Device: Rail;Cane;Crutch(es) Goal: patient will verbalize weight bearing restriction and demonstrate compliance with all functional mobility Progress Toward Goals: Progressing as expected Rehab Potential: Good PLAN: Treatment Frequency (times per week): 7;BID Current admission Treatment Interventions: Education;Strengthening; Functional Mobility Training;Balance Training;Neuromuscular Re-education;Pain Management Plan of Care developed with: Patient Additional personnel present during visit: Bette Gutierrez TREATMENT INTERVENTIONS: Therapy Diagnosis: Reduced mobility-other;Muscle Weakness (generalized);Unsteadine ss on feet;Abnormalities of gait and mobility-other;General symptoms and signs-other;Difficulty walking-musculoskeletal Interventions Provided: Therapeutic Exercise (23072);Therapeutic Activity (83078);Gait Training (75370) Therapeutic Exercise (06818) Treatment Minutes: 12 1 unit Skilled Intervention(s): Instruction in therapeutic exercise Patient completed right total hip arthroplasty protocol (ankle pump, quad set, gluteal set, heel slide, hip abd/add to neutral, short arc quad, long arc quad, hip adductor squeeze) x 15 reps with min amount of assist. Patient set up with ice to surgical hip and elevated lower extremity as needed. Verbal and tactile cuing provided to avoid holding his breathe and maintain proper alignment. Therapeutic Activity (73606) Treatment Minutes: 3 0 units Skilled Intervention(s): Instructed patient in supine to and from sit pushing with upper extremities to sit up with head of bed at 20 degrees and use of rail. Light amount of assist with his right leg. Use of bathroom. Patient does well with control of his clothes and hygiene. Gait Training (67206) Treatment Minutes: 10 1 unit Skilled Intervention(s): Instruction in sit to stand technique with proper hand placement and body positioning at edge of bed/chair, Instruction in stand to sit technique with LE's touching chair/bed and reaching back for surface. Instruction in sequencing, gait pattern and Instruction in correction of gait deviations. Patient ambulates with slow, step to to step through gait pattern. Cues to avoid getting too close to front of walker, just roll walker, and to use greater upper extremities to help maintain partial weight bearing on his right leg. Pace is slow. Total Timed Code Treatment Minutes: 25 Total Treatment Time (minutes): 25 SUBJECTIVE: Current Hospital Course: Chart reviewed and no significant medical updates relevant to therapy were noted Reason for Physical Therapy Consult : eval and treat Relevant Past Medical History: HTN, stenosis, asthma, UTI Patient Report: voiced no new complaints. Home Environment Patient Lives With: Family Assistance Available: methods time analyst Entry To Home: No Stairs Number Of Stairs Into Home: 4 Number Of Stairs To Bed/Bath: 0 Equipment Owned: Cane Prior Functional Level: Within Functional Limits Prior Functional Level Comments: patient normally independent with self care. Uses a cane to get around. Plans to stay with dtr at d/c, who has 1 story home with 4 steps to enter. OBJECTIVE: Mini Cog Score: 3 (10/18/19 6033) CURRENT FUNCTIONAL STATUS: Current Functional Mobility Assist Level Additional Information Rolling Supine to Sit Contact Guard Assistance Sit to Supine Contact Guard Assistance Scooting Stand By Assistance Sit to Stand Stand By Assistance Stand to Sit Stand By Assistance Bed to Chair Toilet/Commode Stand By Assistance Gait Stand By Assistance Gait Device: Wheeled Walker Gait Distance (feet): 2 x 30ft, 12ft Stairs Curb Step Car Transfer Gait Deviations Right Lower Extremity: Weight bearing decreased(PWB 60lbs) General Deviations/Observations: Tati decreased;Flexed trunk posture;Non-functional gait speed;Step length decreased [facility] 7: Walk 25 feet or more Please see discipline specific clinical documentation flowsheet for complete details for this therapy evaluation/treatment. SIGNATURE: Saira Berry PTA PATIENT NAME: Velia Bagley DATE: October 19, 2019 TIME: 3:31 PM [facility] THERAPY NT HNO ID: [id number] Author: Monserrat HarperOtr/Fiorella Smith Service: Occupational Therapy Author Type: Occupational Therapist Type: Therapy (PT/OT/Speech/Resp) Filed: 10/19/2019 12:01 PM Note Text: Occupational Therapy Treatment SERVICE DATE: 10/19/2019 SERVICE TIME: 1115 to 1140 ROOM: [place] [id number] Recommended Discharge Disposition: Home OT Recommended Discharge Disposition Comments: patient would benefit from family training in department Anticipated Discharge Needs: Physical Assist at Home;Supervision at Home Physical Assist at Home for: Cleaning;Laundry;Meals;S elf Care;Shopping;Transporta tion Supervision at Home due to: Decreased safety awareness OT Recommendations to Nursing: To Bathroom for ADL?s /and or Toileting;OOB for meals;With assist of 1 person Equipment: Wheeled Walker OT 6 Clicks Score: 21 Precautions/Activity Restrictions: Weight Bearing Restrictions;Fall Risk;Lines/Tubes/Drains Isolation Type: None Extremity With Weight Bearing Restricted: Right Lower Extremity Right Lower Extremity Weight Bearing Status: PWB(60 lbs) ASSESSMENT: Patient moving around well this session. Was able to complete family training, on track for home-going. Patient Disposition at Start of Session: Seen in therapy department;Family Present Patient Disposition at End of Session: OOB in Chair;Call [facility] in Reach;Family Present Tolerated Full Session Occupational Therapy Problem List: Safety Deficits;Impaired Self Care;Decreased Activity Tolerance;Decreased Strength;Functional Mobility Impairment;Balance Impaired Patient /Caregiver Goals: Go Home Goals for Plan of Care: Able to perform HEP with: Verbal Cues Only(UB strengthening program) Grooming with: Set Up(standing at sink) Upper Body Bathing with: Independent Upper Body Dressing with: Independent Lower Body Bathing with: Modified Independent Lower Body Dressing with: Modified Independent Toilet Hygiene with: Supervision Chair Transfer with: Supervision Toilet Transfer with: Supervision Tub Transfer with: Supervision Car Transfer with: Supervision Tolerate (minutes of functional activity): 35 Functional Activity with: Supervision Demonstrate Competence With Education with: Supervision(adhere to WBS/safety ) Progress Toward Goals: Progressing as expected Rehab Potential: Good PLAN: Treatment Frequency (times per week): 5(2-5) Current admission Treatment Interventions: Education;Self Care / Home Management;Energy Conservation Training;Strengthening;F unctional Mobility Training;Balance Training Plan of Care developed with: Patient;Family TREATMENT INTERVENTIONS: Therapy Diagnosis: Reduced mobility-other;Decreased activities of daily living (ADL);Muscle Weakness (generalized);Unsteadine ss on feet;General symptoms and signs-other Interventions Provided: Self Retirement Management (43780) Self Retirement Management (12338) Treatment Minutes: 25 2 units Skilled Intervention(s): Educated on the role of OT in the acute care setting. Instructed in post-op instructions during ADLs after hip CRPP. Reviewed 60 LB weight restriction on surgical LE. Instructed in energy conservation during self care and functional transfers, provided increased time and rest breaks as needed due to fatigue/ SOB. Provided cuing for hand hygiene while standing at the sink in bathroom, educated on safety. Facilitated commode transfer, instructed on technique and NOT to pull on frame of device. Cues for sequencing in hygiene tasks while sitting/standing at commode to maximize independence with self care. Provided instruction, cuing and facilitation for lower body dressing (donning socks) with use of AE. Educated on proper use/purpose of AE. Education in fall prevention and walker management during functional ADLs. Facilitated tub/car transfer in therapy department, educated on proper hand and body placement and safety while maintaining precautions. 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 I feel overwhelmed. Home Environment Patient Lives With: Family Assistance Available: methods time analyst Entry To Home: No Stairs Number Of Stairs Into Home: 4 Number Of Stairs To Bed/Bath: 0 Equipment Owned: Cane Prior Functional Level: Within Functional Limits Prior Functional Level Comments: patient normally independent with self care. Uses a cane to get around. Plans to stay with dtr at d/c, who has 1 story home with 4 steps to enter. OBJECTIVE: Cognition/Communication Deficits Responsiveness: Alert Follows Commands: 1-step Commands Executive Function Deficits: Safety Awareness Safety Awareness Deficit: Minimal impairment Cognitive Clinical Tests and Screens: Mini Cog Clock Draw Test: 0-Abnormal Word Recall: 3-recalled words Mini Cog Score: 3 Psychosocial Deficit: crying during toileting activity. CURRENT FUNCTIONAL STATUS: Current Activities of Daily Living Assist Level Feeding Set Up Grooming Stand By Assistance Bathing Upper Body Stand By Assistance Bathing Lower Body Minimal Assistance Dressing Upper Body Stand By Assistance Dressing Lower Body Minimal Assistance Toileting Stand By Assistance Functional Mobility Assist Level Rolling Sit to Supine Sit to Stand Contact Guard Assistance Stand to Sit Contact Guard Assistance Bed to Chair Toilet/Commode Contact Guard Assistance Functional Mobility Contact Guard Assistance Wheeled Walker Functional Mobility Comments: functional mobility in therapy department Tub Transfer: Contact Guard Assistance Car Transfer: Contact Guard Assistance Balance: Static Standing;Dynamic Standing Static Standing Balance: Fair Patient able to maintain balance with handhold support, may require occasional minimal assistance Dynamic Standing Balance: Fair Patient accepts minimal challenge, able to maintain balance while turning head/trunk Range of Motion: WFL Strength: WFL Except;Upper Extremity Comments Right Upper Extremity Strength Comments: 4/5 Left Upper Extremity Strength Comments: 4-/5(h/o stroke ) Please see discipline specific clinical documentation flowsheet for complete details for this therapy evaluation/treatment. SIGNATURE: YAEL Diaz/Matt PATIENT NAME: Velia Bagley DATE: October 19, 2019 TIME: 11:56 AM [facility] THERAPY NT HNO ID: [id number] Author: Saira Berry Service: Physical Therapy Author Type: Filemaker Developer Type: Therapy (PT/OT/Speech/Resp) Filed: 10/19/2019 11:58 AM Note Text: -------- Attestation signed by Liv Brock at 10/19/2019 3:15 PM I reviewed and agree with the documentation corresponding to this therapy visit. SIGNATURE: Liv Brock, PT DATE: October 19, 2019 TIME: 3:14 PM -------- Physical Therapy Treatment SERVICE DATE: 10/19/2019 SERVICE TIME: 1030 to 1108 ROOM: [id number] Recommended Discharge Disposition: Home PT Recommended Discharge Disposition Comments: home with home PT, assist of daughter, pending stair and department training, likely POD#2 Anticipated Discharge Needs: Physical Assist at Home;Supervision at Home Physical Assist at Home for: Cleaning;Laundry;Meals;S elf Care;Shopping;Transporta tion Supervision at Home due to: Decreased safety awareness Recommended Discharge Equipment: Wheeled Walker PT Recommendations to Nursing: Ambulate with device;To bathroom;Transfer to/from chair;OOB for Meals;With assist of 1 person Device: Wheeled Walker(PWB 60lbs RLE) PT 6 Clicks Score: 20 Precautions/Activity Restrictions: Weight Bearing Restrictions;Fall Risk;Lines/Tubes/Drains Isolation Type: None Extremity With Weight Bearing Restricted: Right Lower Extremity Right Lower Extremity Weight Bearing Status: PWB(60 lbs) ASSESSMENT : Patient Disposition at Start of Session: Supine in Bed;Call [facility] in Reach;Family Present(son) Patient Disposition at End of Session: Seen in Therapy Department(with OT) Tolerated Full Session Without limitations Patient required several rest breaks due to shortness of breathe with exertion. Patient and son voiced understanding of exercises and on how to assist with stairs and bed mobility. Patient does well with partial weight bearing on his right leg for shorter distances but then struggles due to fatigue. Son reports that he will be able to assist patient with exercises and mobility task. Goals ongoing. Physical Therapy Problem List: Education Deficit;Pain;Safety Deficits;Decreased Activity Tolerance;Decreased Strength;Functional Mobility Impairment;Balance Impaired Patient /Caregiver Goals: Go Home Goals for Plan of Care: Able to perform HEP with: Verbal Cues Only(R hip fx protocol therapeutic exercise) Transfer supine to/from sit with: Independent Transfer sit to/from stand with: Independent Ambulate with: Independent Distance: 50ft intervals Device: Wheeled Walker Ambulate up and down steps with: Stand By Assistance Number of steps: 4 Device: Rail;Cane;Crutch(es) Goal: patient will verbalize weight bearing restriction and demonstrate compliance with all functional mobility Progress Toward Goals: Progressing as expected Rehab Potential: Good PLAN: Treatment Frequency (times per week): 7;BID Current admission Treatment Interventions: Education;Strengthening; Functional Mobility Training;Balance Training;Neuromuscular Re-education;Pain Management Plan of Care developed with: Patient Additional personnel present during visit: Bette Gutierrez TREATMENT INTERVENTIONS: Therapy Diagnosis: Reduced mobility-other;Muscle Weakness (generalized);Unsteadine ss on feet;Abnormalities of gait and mobility-other;General symptoms and signs-other;Difficulty walking-musculoskeletal Interventions Provided: Therapeutic Exercise (87178);Therapeutic Activity (88117);Gait Training (58880) Therapeutic Exercise (11687) Treatment Minutes: 13 1 unit Skilled Intervention(s): Instruction in therapeutic exercise Patient completed right hip fracture protocol (ankle pump, quad set, gluteal set, heel slide, hip abd/add to neutral, short arc quad, long arc quad, hip adductor squeeze) x 12 reps with min amount of assist with hip abduction. Verbal and tactile cuing provided to avoid holding his breathe, maintain proper alignment, and slower pace. Therapeutic Activity (06898) Treatment Minutes: 12 1 unit Skilled Intervention(s): Instructed patient in supine to and from sit pushing with upper extremities to sit up with head of bed at 15 degrees (due to asthma and use of wedges at home). Patient completed 3 trials with/without use of his left leg to assist with management of his right leg. Patient does well using his left leg. Education with use of cold pack for pain management. Patient assisted with getting into bathroom and onto commode at edge of session (OT assisted patient to get up). Gait Training (43031) Treatment Minutes: 13 1 unit Skilled Intervention(s): Instruction in sit to stand technique with proper hand placement and body positioning at edge of bed/chair, Instruction in stand to sit technique with LE's touching chair/bed and reaching back for surface. Patient completed 3 trials with emphasis on proper hand placement and eccentric control to sit. Instruction in sequencing, gait pattern, Instruction in correction of gait deviations. Patient ambulates with slow, step to to reciprocal pattern. Cues to look up, greater use of upper extremities to help maintain partial weight bearing on his right leg. Patient limited with gait endurance and control of his weight bearing limitation due to fatigue. Instruction in stair negotiation using one rail and straight cane with step to pattern. Cues to limit amount of stance time on his right leg, look up, and safe placement of cane on step. Reports that he has cane at home. Patient and son voiced and demonstrated understanding of stairs. Patient voiced that he would only have to do stairs if he goes home to his daughters. Total Timed Code Treatment Minutes: 38 Total Treatment Time (minutes): 38 SUBJECTIVE: Current Hospital Course: Chart reviewed and no significant medical updates relevant to therapy were noted Reason for Physical Therapy Consult : eval and treat Relevant Past Medical History: HTN, stenosis, asthma, UTI Patient Report: voiced no new pain but just concern with his breathing. Home Environment Patient Lives With: Family Assistance Available: methods time analyst Entry To Home: No Stairs Number Of Stairs Into Home: 4 Number Of Stairs To Bed/Bath: 0 Equipment Owned: Cane Prior Functional Level: Within Functional Limits Prior Functional Level Comments: patient normally independent with self care. Uses a cane to get around. Plans to stay with dtr at d/c, who has 1 story home with 4 steps to enter. OBJECTIVE: Mini Cog Score: 3 (10/18/19 0945) CURRENT FUNCTIONAL STATUS: Current Functional Mobility Assist Level Additional Information Rolling Supine to Sit Contact Guard Assistance Sit to Supine Contact Guard Assistance Scooting Stand By Assistance Sit to Stand Contact Guard Assistance Stand to Sit Contact Guard Assistance Bed to Chair Toilet/Commode Gait Stand By Assistance Gait Device: Wheeled Walker Gait Distance (feet): intervals of 15-20ft Stairs Contact Guard Assistance Stairs Device: Cane;Rail Number of Stairs: 4 Curb Step Car Transfer Gait Deviations Right Lower Extremity: Weight bearing decreased(PWB 60lbs) General Deviations/Observations: Tati decreased;Flexed trunk posture;Non-functional gait speed;Step length decreased JH-HLM: 6: Walk 10 steps or more Please see discipline specific clinical documentation flowsheet for complete details for this therapy evaluation/treatment. SIGNATURE: Saira Berry PTA PATIENT NAME: Velia Bagley DATE: October 19, 2019 TIME: 11:44 AM [facility] ALLIED HEALTHon 10-18-2019 ALLIED HEALTH HNO ID: [id number] Author: Nemo (Student) Marie Castaneda Service: Spiritual Care Author Type: Student Type: Allied Health Filed: 10/18/2019 10:58 AM Note Text: Summary: Spiritual Care SPIRITUAL CARE PROGRESS NOTE SERVICE DATE: 10/18/2019 SERVICE TIME: 10:56am As tie buyer, I attempted contact with patient by phone but received no answer. Will re-attempt contact as able. To contact the Spiritual Care Department: Please call [phone]. SIGNATURE: Marie Hidalgo PATIENT NAME: Velia Bagley DATE: October 18, 2019 TIME: 10:57 AM PAGER/CONTACT #: [phone] [facility] CASE MANAGEMon 10-18-2019 CASE MANAGEM HNO ID: [id number] Author: Jennifer Anthony) Bharathi Service: Care Management Author Type: Insulation Cupola Charger Type: Care Mgt Progress Note Filed: 10/18/2019 1:48 PM Note Text: CARE MANAGEMENT PROGRESS NOTE SERVICE DATE: 10/18/2019 SERVICE TIME: 1330 LOS: 2 days [place] of Choice Given: Yes Level of Care Discussed: Home Care Provider List: Home Care Provider list within the patient's requested geographic area shared with the patient/family: Yes within: 20 miles of zip code: [address] PT/OT recommending home care. Referrals sent to home care, [facility], [facility] and [facility]. Pt will stay with his daughter short term at discharge: Address [address] [place] [address] SIGNATURE: EDI Neri PATIENT NAME: Velia Bagley DATE: October 18, 2019 TIME: 1:47 PM PAGER/CONTACT #: [phone] [facility] CONSULTon 10-18-2019 CONSULT HNO ID: [id number] Author: Mathew Chan Beau Service: Hematology Author Type: Physician Type: Consults Filed: 10/18/2019 8:45 AM Note Text: VELIA BAGLEY 59 year old HEMATOLOGY CONSULTATION: History of DVT, history of TIA, 24 HOUR COMFORT MEDICATIONS: Subjective HPI: 51-year-old male, status post fall, admitted on 10/16/2019, diagnosed with an acute right hip fracture, with multiple views of the right hip showing a completely displaced femoral neck fracture, joint space is well-maintained, no bony lesions or cortical erosions. He underwent total hip arthroplasty on 10/15 Positive history of migraine, iron deficiency anemia, lumbar spinal stenosis, TIA, history of prior DVT,left common femoral vein, in November 2017, suboptimally treated with apixaban in the past. Previously evaluated for inguinal lymphadenopathy, with negative biopsy. When he was first diagnosed with a DVT in 11/14/2016, his legs were swollen, hot to touch, and had a difficult time standing up and he went into [facility] on 10/28/2016. The first time he went in (initial scan), they did an ultrasound and they did not note a DVT scan. He then left the hospital, and he went back and saw her primary care physician, and they had recommended that he go into the ED to repeat the scan, which demonstrated a DVT on 11/14/2016. They prescribed Eliquis 5 mg BID (was not on any anticoagulation prior to this), and he has been on this ever since. Has not missed any doses that he is aware of. He went and saw Dr. Matthews at on 01/11/2018, and the plan from her end was to address the essential tremor in the arms, legs and body. As he saw a movement specialist, Dr. Sanches, who started propanolol due to the interaction of Eliquis and would like us to address a different blood thinner that may not interact with primidone. ? He notes that he previously had an additional blood clot/DVT in 1976 after one of his knee surgeries. This was treated via extraction of the blood clot in the erlinda-operative setting. ? DVT Scan history: Patient initially had a DVT scan on 10/28/2016 at that demonstrated no DVT in bilateral lower extremities . Thereafter, he had a repeat US of the left lower extremity which demonstrated a small segment of nonocclusive thrombus in the left common femoral vein on 11/14/2016. Repeat US venous doppler on 05/25/2017 demonstrated a stable nonocclusive thrombus in the deep left common femoral and superficial left small saphenous veins . The most recent US venous doppler was on 11/03/2017 which demonstrated a nonocclusive, chronic DVT within the left common femoral vein and a not occlusive, chronic superficial thrombus within the bleft small saphenous vein, and nonspecific prominent groin lymph nodes bilaterally . ? Apixaban was discontinued in January 2018, and at that time he was placed on aspirin 81 mg per day Current Facility-Administered Medications Medication Dose Route Frequency Provider Last Rate Last Dose - [MAR Hold due to Transfer] glycopyrrolate 15.6 mcg cap(s) and device for inhalation (SEEBRI NEOHALER) 15.6 mcg INHALATION BID Jayant (Betty) MD Carola - [MAR Hold due to Transfer] SUMAtriptan 100 mg tab(s) (IMITREX) 100 mg ORAL DIRECTED PRN Jayant Yoon) MD [place] - [MAR Hold due to Transfer] pantoprazole DR 40 mg tab(s) (PROTONIX) 40 mg ORAL BID AC () Jayant Yoon) MD Carola - [MAR Hold due to Transfer] amitriptyline 50 mg tab(s) (ELAVIL) 50 mg ORAL AT BEDTIME Payal (Jaclyn) Priscilla - [MAR Hold due to Transfer] atorvastatin 40 mg tab(s) (LIPITOR) 40 mg ORAL AT BEDTIME Payal (Jaclyn) Priscilla - [MAR Hold due to Transfer] tamsulosin ER 0.4 mg cap(s) (FLOMAX) 0.4 mg ORAL BID Payal (Jaclyn) Priscilla - [MAR Hold due to Transfer] cloNIDine HCl 0.1 mg tab(s) (CATAPRES) 0.1 mg ORAL BID AC () Payal Chacko) Priscilla - [MAR Hold due to Transfer] amLODIPine 5 mg tab(s) (NORVASC) 5 mg ORAL DAILY Payal (Jaclyn) Priscilla - [MAR Hold due to Transfer] topiramate 200 mg tab(s) (TOPAMAX) 200 mg ORAL DAILY Payal (Jaclyn) Priscilla - [MAR Hold due to Transfer] topiramate 100 mg tab(s) (TOPAMAX) 100 mg ORAL q NOON Payal (Jaclyn) Priscilla - [MAR Hold due to Transfer] topiramate 100 mg tab(s) (TOPAMAX) 100 mg ORAL AT BEDTIME Payal (Jaclyn) Priscilla - [MAR Hold due to Transfer] gabapentin 800 mg cap(s) (NEURONTIN) 800 mg ORAL QID Payal (Jaclyn) Priscilla - [MAR Hold due to Transfer] tiZANidine 8 mg tab(s) (ZANAFLEX) 8 mg ORAL AT BEDTIME Jayant (Betty) MD Carola 8 mg at 10/17/1921 - [MAR Hold due to Transfer] spironolactone 25 mg tab(s) (ALDACTONE) 25 mg ORAL DAILY Jayant (Betty) MD Carola - [MAR Hold due to Transfer] celecoxib 200 mg cap(s) (CeleBREX) 200 mg ORAL QID Jayant (Betty) MD Carola - [MAR Hold due to Transfer] montelukast 10 mg tab(s) (SINGULAIR) 10 mg ORAL AT BEDTIME Jayant (Betty) MD Carola - [MAR Hold due to Transfer] potassium chloride ER 20 mEq tab(s) (K-DUR, KLOR-CON) 20 mEq ORAL QID Jayant (Don Srivastava MD - [MAR Hold due to Transfer] aspirin, enteric coated 81 mg tab(s) 81 mg ORAL DAILY Jayant (Betty) MD Carola - [MAR Hold due to Transfer] losartan 100 mg tab(s) (COZAAR) 100 mg ORAL DAILY Jayant (Don Srivastava MD - [MAR Hold due to Transfer] primidone 250 mg tab(s) (MYSOLINE) 250 mg ORAL AT BEDTIME Jayant (Don Srivastava MD 250 mg at 10/17/19 0021 - [MAR Hold due to Transfer] lactated ringers infusion 125 mL/hr INTRAVENOUS CONTINUOUS Jayant Srivastava MD 125 mL/hr at 10/17/1921 125 mL/hr at 10/17/1921 - [MAR Hold due to Transfer] NaCl 0.9% 2-10 mL 2-10 mL INTRAVENOUS q 12 H Jayant (Don Srivastava MD - [MAR Hold due to Transfer] morphine 2 mg injection 2 mg INTRAVENOUS q 3 H PRN Jayant Srivastava MD 2 mg at 10/17/19 1031 - [MAR Hold due to Transfer] oxyCODONE IR 5 mg tab(s) (ROXICODONE) 5 mg ORAL q 6 H PRN Jayant Srivastava MD 5 mg at 10/17/19 0021 - [MAR Hold due to Transfer] docusate sodium 100 mg cap(s) (COLACE) 100 mg ORAL BID Jayant Srivastava MD amLODIPine (NORVASC) 5 mg tablet, Take 5 mg by mouth once daily., Disp: , Rfl: cloNIDine HCl (CATAPRES) 0.1 mg tablet, Take 0.1 mg by mouth twice daily before meals (0600/1600)., Disp: , Rfl: umeclidinium (INCRUSE ELLIPTA) 62.5 mcg/actuation inhaler, Inhale 1 Puff as instructed once daily., Disp: , Rfl: tamsulosin ER (FLOMAX) 0.4 mg cap, TAKE 2 CAPSULES BY MOUTH EVERY DAY (Patient taking differently: 0.4 mg twice daily. ), Disp: 60 capsule, Rfl: 10 nitrofurantoin monohydrate and macrocrystal (MACROBID) 100 mg capsule, TAKE 1 CAPSULE BY MOUTH EVERY DAY, Disp: 30 capsule, Rfl: 10 primidone (MYSOLINE) 50 mg tablet, Take 250 mg by mouth daily at bedtime. , Disp: , Rfl: amitriptyline (ELAVIL) 100 mg tablet, Take 50 mg by mouth daily at bedtime. , Disp: , Rfl: atorvastatin (LIPITOR) 20 mg tablet, Take 40 mg by mouth once daily. , Disp: , Rfl: FASENRA 30 mg/mL injection, Inject 30 mg subcutaneously every 8 weeks. Next one due 11/15/19 , Disp: , Rfl: budesonide-formoterol (SYMBICORT) 160-4.5 mcg/actuation inhaler, Inhale 2 Puffs as instructed twice daily. , Disp: , Rfl: gabapentin (NEURONTIN) 300 mg capsule, Take 800 mg by mouth four times daily. , Disp: , Rfl: , 10/17/2019 at Unknown time losartan (COZAAR) 100 mg tablet, Take 100 mg by mouth once daily. , Disp: , Rfl: rizatriptan (MAXALT) 10 mg tablet, Take 10 mg by mouth as needed. , Disp: , Rfl: fluticasone (FLONASE) 50 mcg/actuation nasal spray, Use 2 Sprays in each nostril once daily., Disp: 1 Bottle, Rfl: 11 omeprazole (PRILOSEC) 20 mg capsule, Take 1 capsule by mouth daily before dinner. 30 MINUTES BEFORE DINNER. (Patient taking differently: Take 20 mg by mouth twice daily. 30 MINUTES BEFORE DINNER. ), Disp: 30 capsule, Rfl: 11 montelukast (SINGULAIR) 10 mg tablet, Take 10 mg by mouth daily at bedtime., Disp: , Rfl: potassium chloride ER (K-DUR, KLOR-CON) 20 mEq tablet, Take 20 mEq by mouth four times daily. , Disp: , Rfl: spironolactone (ALDACTONE) 25 mg tablet, Take 25 mg by mouth once daily., Disp: , Rfl: celecoxib (CELEBREX) 200 mg capsule, Take 200 mg by mouth four times daily. , Disp: , Rfl: ALBUTEROL SULFATE (PROAIR HFA INHALATION), Inhale 2 Puffs as instructed. Prn SOB, Disp: , Rfl: topiramate (TOPAMAX) 100 mg tablet, 2 in am, 1 at noon, 1 at evening and 2 at bedtime (600 mg/day total) (Patient taking differently: 100 mg. 2 in am, 1 at noon, 2 at evening and 1 at bedtime (600 mg/day total)), Disp: , Rfl: NASAL ALLERGY 55 mcg nasal inhaler, , Disp: , Rfl: Social History Tobacco Use - Smoking status: Never Smoker - Smokeless tobacco: Never Used - Tobacco comment: second hand smoke from father. Substance Use Topics - Alcohol use: No - Drug use: No FAMILY HISTORY Problem Relation Age of Onset - Emphysema Mother - Blood Clots Mother required IVC filter. Multiple blood clots before (3-4). - Hypertension Mother - Heart Failure Father 72 of CHF. 2 OR before that - Parkinson?s Disease Father 68 - Prostate Cancer Brother - Parkinson?s Disease Paternal Grandfather - Diabetes No Family History PAST SURGICAL HISTORY Procedure Laterality Date - LAMINECTOMY,LUMBAR 03/2016 L4-L5 - PAST SURGICAL HISTORY OF x 16 surgeries surgery to repair bone in knee cap and multiple arthroscopies and debridements - PAST SURGICAL HISTORY OF 2018 bronchoscopy ROS: All of the following reviewed and negative except as noted below: GENERAL: no fever, chills, sweats, weight loss, fatigue, generalized weakness HEENT: no headache, vision changes, eye discomfort, hearing change, ear discomfort, sinus pain, nasal discharge or congestion, oral lesions, soreness, dental problem NECK: no adenopathy, discomfort, change in ROM CHEST: no shortness of breath, dyspnea on exertion, wheezing, cough, sputum production or chest pain HEART: no chest pain, palpitations, syncope ABDOMEN: no nausea, vomiting, constipation, diarrhea, abdominal pain : no dysuria, urgency, frequency, history of stones, incontinence NEURO: no confusion or alteration in consciousness, slurred speech, seizure, focal weakness EXTREMITIES: no new pain, edema, change in ROM HEME: no new adenopathy, bruises, petechiae PSYCH: no depression, anxiety, agitation PHYSICAL EXAMINATION: see below for new or abnormal findings BP 146/93 Pulse 80 Temp 36.4 ?C (97.5 ?F) (Temporal) Resp 16 Ht 175.3 cm (5' 9 ) Wt 104.2 kg (229 lb 11.5 oz) SpO2 97% BMI 33.92 kg/m? BMI 33.92 kg/(m2) Date 10/17/19699 - 10/18/19 0659 Shift 1887-4871 6155-2644 5749-2155 24 Hour Total INTAKE Shift Total OUTPUT Urine 800 800 Shift Total 800 800 Weight (kg) 104.2 104.2 104.2 104.2 Date 10/16/19699 - 10/17/1965810/17/19699 - 10/18/19 0659 Shift 6559-6831 4811-0761 3708-9603 24 Hour Total 3660-1005 3633-3802 4679-9515 24 Hour Total INTAKE Shift Total OUTPUT Urine 800 800 Void (ml) 800 800 Shift Total 800 800 Weight (kg) 103.9 104.2 104.2 104.2 104.2 104.2 104.2 GENERAL: well nourished and developed; no acute distress; alert and oriented x 3; intact judgement and insight HEENT: no evidence of trauma; cranial nerves intact; eyes clear EOMI; no hearing deficits apparent; nasal passages unremarkable; throat and mucous membranes clear NECK: supple without lymphadenopathy; no JVD; no thyromegaly CHEST: clear bilaterally to auscultation; normal chest movement; no rales or rhonchi HEART: regular rate and rhythm, normal S1 and S2, no murmurs, clicks, rubs, or gallops ABDOMEN: soft; nondistended; bowel sounds present; no hepatomegaly; no splenomegaly; no tenderness EXTREMITIES: no evidence of clubbing; no cyanosis; no deformity; no joint effusion; no edema NEURO: cranial nerves intact; no focal deficits; no confusion; no tremor; sensorium normal SKIN: no rash; no skin breakdown; no decubitus lesions HEME: no bruising; no adenopathy PSYCH: no evidence of depression; no anxiety; no agitation; no apparent hallucinations PAIN PSYCHIATRIC EXAM: GENERAL: alert, oriented to person, place, time JUDGMENT AND INSIGHT: intact APPEARANCE: neatly groomed DEMEANOR: coooperative, not hostile, mistrustful, preoccupied, or demanding ACTIVITY: normal, not hyperactive or hypoactive, no tremors, tics EYE CONTACT: normal SPEECH: normal, rate, volume, articulation, coherence, spontaneity MOOD: normal, without overt sadness, grief, anxiety, appropriate to situation IDEATION: normal and without suicidal or homicidal ideation MEMORY: intact ABNORMAL/NEW FINDINGS: NONE RADIOLOGY/DIAGNOSTICS: LABORATORY: CBC: Recent Labs 10/16/192042 WBC 5.28 RBC 4.61* HB 13.5* HCT 41.4 PLT 196 MCV 89.8 MCH 29.3 MPV 9.4 RDW 16.0* CMP: Recent Labs 10/16/192042 NA 141 K see below CHLOR 110* CO2 21* BUN 16 CREAT 0.94 GLUC 104* CA 8.6 ANION 10 Heme: No results for input(s): RETICP, ABSRETIC, LD, BRIAN, FE, TIBC, TRANSFERSAT in the last 24 hours. ASSESSMENT ACTIVE PROBLEM LIST Variants of Migraine, Not Elsewhere Classified, With Intractable Migraine, So Stated, Without Mention of Status Migrainosus Carpal Tunnel Syndrome Cervicalgia Myalgia and Myositis, Unspecified Iron Deficiency Anemia Weakness Lymphadenopathy Closed Displaced Fracture of Right Femoral Neck (Hcc) PLAN: Right femoral neck fracture that is post fall Remote history of left lower extremity DVT 11/2016, interrupted course of apixaban therapy. Completed 1 year plus of apixaban therapy January 2018 at which time he was switched to aspirin. Aspirin has since been discontinued. No family history of DVT Patient with history of movement disorder on primidone (which interacts with apixaban) Agree with lovenox currently at 30 mg BID which is aggressive prophylaxis. This can be discontinued when he is ambulating reasonably well. Mathew Yanez M.D. Normal [facility] Hemogram/Diffon 10-18-2019 Abs Immature Grans 0.06 thou/cmm High 0.00-0.05 [facility] Comment on above: Performed By: #### C BCD1 #### [facility] [address] [place], [place] [address] Abs Neut (ANC) 5.12 thou/cmm Normal 1.78-5.38 [facility] Comment on above: Performed By: #### C BCD1 #### [address] [address] Abs. Baso 0.01 thou/cmm Normal 0.01-0.08 [facility] Comment on above: Performed By: #### C BCD1 #### [place] [address] Abs. [place] 0.63 thou/cmm Normal 0.30-0.82 [facility] Comment on above: Performed By: #### C BCD1 #### [address] [address] Basophils/100 WBC (Bld) 0.1 % Normal [facility] Comment on above: Performed By: #### C BCD1 #### [facility] [address] [place], [place] [address] Eosinophils (Bld) [#/Vol] 0.00 thou/cmm Low 0.04-0.54 [facility] Comment on above: Performed By: #### C BCD1 #### [facility] [address] [place], [place] [address] Eosinophils/100 WBC (Bld) 0.0 % Normal [facility] Comment on above: Performed By: #### C BCD1 #### [facility] [address] [place] [address] Erythrocyte distribution width (RBC) [Ratio] 16.1 % High 11.6-14.4 [facility] Comment on above: Performed By: #### C BCD1 #### [facility] [address] [place] [address] Hematocrit (Bld) [Volume fraction] 35.0 % Low 40.1-51.0 [facility] Comment on above: Performed By: #### C BCD1 #### [facility] [address] [place] [address] Hemoglobin (Bld) [Mass/Vol] 11.2 g/dL Low 13.7-17.5 [facility] Comment on above: Performed By: #### C BCD1 #### [facility] [address] [place] [address] Immature Grans 0.90 % Normal [facility] Comment on above: Performed By: #### C BCD1 #### [facility] [address] [place] [address] Lymphocytes (Bld) [#/Vol] 1.11 thou/cmm Normal 0.84-2.85 [facility] Comment on above: Performed By: #### C BCD1 #### [facility] [address] [place] [address] Lymphocytes/100 WBC (Bld) 16.0 % Normal [facility] Comment on above: Performed By: #### C BCD1 #### [facility] [address] [place] [address] MCH (RBC) [Entitic mass] 28.9 pg Normal 25.7-32.2 [facility] Comment on above: Performed By: #### C BCD1 #### [facility] [address] [place] [address] MCHC (RBC) [Mass/Vol] 32.0 % Low 32.3-36.5 [facility] Comment on above: Performed By: #### C BCD1 #### [facility] [address] [place] [address] MCV (RBC) [Entitic vol] 90.2 fL Normal 83.2-95.6 [facility] Comment on above: Performed By: #### C BCD1 #### [facility] [address] [place], [place] [address] Monocytes/100 WBC (Bld) 9.1 % Normal [facility] Comment on above: Performed By: #### C BCD1 #### [facility] [address] [place], [place] [address] Platelet mean volume (Bld) [Entitic vol] 9.3 fL Normal 8.7-12.0 [facility] Comment on above: Performed By: #### C BCD1 #### [facility] [address] [place], [place] [address] Platelets (Bld) [#/Vol] 168 thou/cmm Normal 141-365 [facility] Comment on above: Performed By: #### C BCD1 #### [facility] [address] [place], [place] [address] RBC (Bld) [#/Vol] 3.88 mil/cmm Low 4.63-6.08 [facility] Comment on above: Performed By: #### C BCD1 #### [facility] [address] [place], [place] [address] RDW SD 53.3 fl High 36.1-45.8 [facility] Comment on above: Performed By: #### C BCD1 #### [facility] [address] [place], [place] [address] Seg Neutrophil 73.9 % Normal [facility] Comment on above: Performed By: #### C BCD1 #### [facility] [address] [place], [place] [address] WBC (Bld) [#/Vol] 6.93 thou/cmm Normal 4.23-9.07 [facility] Comment on above: Performed By: #### C BCD1 #### [facility] [address] [place] [address] PROGRESSon 10-18-2019 PROGRESS HNO ID: [id number] Author: Yuriy Stratton Service: Hospital Medicine Author Type: Physician Type: Progress Notes Filed: 10/18/2019 5:09 PM Note Text: DEPARTMENT OF HOSPITAL MEDICINE PROGRESS NOTE SERVICE DATE: 10/18/2019 SERVICE TIME: 4:59 PM Hospital Medicine/Primary Attending: Yuriy Stratton DO NIGHT AND WEEKEND COVERAGE: After 7pm please page [phone] CHIEF COMPLAINT: R hip/leg pain SUBJECTIVE: Pt seen and examined. No acute events overnight. Denies CP, SOB, NVD, headache, fever/chills or abdominal pain. OBJECTIVE: PHYSICAL EXAM: BP 128/74 Pulse 85 Temp (Src) 98.2 (Oral) Resp 17 Ht 5' 9 (1.75m) Wt 229 lb 11.5 oz (104.2kg) SpO2 96% BMI 33.91 kg/(m2). O2 Therapy: Room Air General - AANDOx3, NAD CV - RRR S1 S2, No M/R/G RESP - CTA B/L No wheezes, ronchi, rales ABD - soft, NT, ND +BS EXT - restricted movement R leg 2/2 pain, no clubbing or cyanosis, good cap refill R leg, good distal dorsalis pedis, posterior tibialis pulses NEURO - CN II-XII grossly intact, no focal deficits MEDICATIONS: Current Facility-Administered Medications Medication Dose Route Frequency - tiZANidine 8 mg tab(s) (ZANAFLEX) 8 mg ORAL AT BEDTIME - spironolactone 25 mg tab(s) (ALDACTONE) 25 mg ORAL DAILY - celecoxib 200 mg cap(s) (CeleBREX) 200 mg ORAL QID - montelukast 10 mg tab(s) (SINGULAIR) 10 mg ORAL AT BEDTIME - potassium chloride ER 20 mEq tab(s) (K-DUR, KLOR-CON) 20 mEq ORAL QID - losartan 100 mg tab(s) (COZAAR) 100 mg ORAL DAILY - primidone 250 mg tab(s) (MYSOLINE) 250 mg ORAL AT BEDTIME - NaCl 0.9% 2-10 mL 2-10 mL INTRAVENOUS q 12 H - morphine 2 mg injection 2 mg INTRAVENOUS q 3 H PRN - oxyCODONE IR 5 mg tab(s) (ROXICODONE) 5 mg ORAL q 6 H PRN - docusate sodium 100 mg cap(s) (COLACE) 100 mg ORAL BID - glycopyrrolate 15.6 mcg cap(s) and device for inhalation (SEEBRI NEOHALER) 15.6 mcg INHALATION BID - SUMAtriptan 100 mg tab(s) (IMITREX) 100 mg ORAL DIRECTED PRN - pantoprazole DR 40 mg tab(s) (PROTONIX) 40 mg ORAL BID AC () - amitriptyline 50 mg tab(s) (ELAVIL) 50 mg ORAL AT BEDTIME - atorvastatin 40 mg tab(s) (LIPITOR) 40 mg ORAL AT BEDTIME - tamsulosin ER 0.4 mg cap(s) (FLOMAX) 0.4 mg ORAL BID - cloNIDine HCl 0.1 mg tab(s) (CATAPRES) 0.1 mg ORAL BID AC () - amLODIPine 5 mg tab(s) (NORVASC) 5 mg ORAL DAILY - topiramate 200 mg tab(s) (TOPAMAX) 200 mg ORAL DAILY - topiramate 100 mg tab(s) (TOPAMAX) 100 mg ORAL q NOON - topiramate 100 mg tab(s) (TOPAMAX) 100 mg ORAL AT BEDTIME - gabapentin 800 mg cap(s) (NEURONTIN) 800 mg ORAL QID - enoxaparin 30 mg injection (LOVENOX) 30 mg SUBCUTANEOUS BID DATA: Diagnostic tests reviewed for today's visit: CBC: Recent Labs 10/18/19 0506 WBC 6.93 RBC 3.88* HB 11.2* HCT 35.0* PLT 168 MCV 90.2 MCH 28.9 MPV 9.3 RDW 16.1* Coags: No results for input(s): INR, APTT in the last 24 hours. Invalid input(s): PT BMP: No results for input(s): NA, K, CHLOR, CO2, BUN, CREAT, GLUC in the last 24 hours. CMP: No results for input(s): NA, K, CHLOR, CO2, BUN, CREAT, GLUC, TPROT, CA, MG, ALBUMIN, TBILI, ALKPHOS, ALT, AST, ANION in the last 24 hours. Cardiac Enzymes: No results for input(s): CK, MB, CKMB, TROPT in the last 24 hours. Liver Function, Amylase, Lipase: No results for input(s): TPROT, ALB, ALT, AST, ALKPHOS, TBILI, AMYLASE, LIPASE, LACTATE in the last 24 hours. MG/PHOS: No results for input(s): MG, P in the last 24 hours. Renal Panel: No results for input(s): ALBUMIN, CREAT, BUN, GLUC, CA, P, CHLOR, K, CO2, NA in the last 24 hours. Heme: No results for input(s): RETICP, ABSRETIC, LD, BRIAN, FE, TIBC, TRANSFERSAT in the last 24 hours. No results found for: UALBCR Assessment/Plan #R hip pain and fracture 2/2 fall POD#1 s/p CRPP -encourage IS -Orthopedic primary management, pain control -PTOT #Acute on chronic anemia acute blood loss -no indication for transfusion at this time -monitor cbc daily #HTN- continue home regimen #Asthma- continue nebs PRN, not in exacerbation #Constipation- colace #Obesity BMI 33- encourage lifestyle modification and weight loss VTE Prophylaxis: Lovenox 40mg Sub Q Daily Disposition: [facility], Home PT Plan of care discussed with: Provider, RN, Patient SIGNATURE: Yuriy Stratton DO PATIENT NAME: Velia Bagley DATE: October 18, 2019 TIME: 4:59 PM PAGER/CONTACT #: Team color pager Disclaimer: Portions of this note may have been generated using [employer] voice recognition software. Reasonable efforts were made to correct any dictation errors that resulted due to the programming of this software but some may still be present. Normal [facility] PROGRESS HNO ID: [id number] Author: Hiral Castaneda Service: Orthopaedic Surgery Author Type: Physician Type: Progress Notes Filed: 10/18/2019 12:38 PM Note Text: I evaluated the patient and personally participated in the antonio components. I agree with the resident's findings and plan with the following revisions and/or additions: Will use lovenox BID for DVT prevention. Leave guthrie due to neurogenic bladder until more mobile. Signature: Hiral Castaneda MD Service Date: 10/18/2019 Service Time: 12:37 PM ORTHOPAEDIC SURGERY DAILY PROGRESS NOTE ASSESSMENT: 59 year old male POD#1 status-post right hip CRPP. PLAN: -Management per orthopaedics -PT/OT: Partial weight-bearing right lower extremity (60 pounds) -DVT PPX: Aspirin 325 mg BID until heme/onc recommendations; SCDs -Post-Operative Antibiotics: Vancomycin 1 dose -Dressing: maintain aquacel dressing to the right hip x 10 days -Guthrie: Will DC today -Ice to the right hip -Acute blood loss anemia: AM hemoglobin of 11.2; asymptomatic - will continue to monitor -Pain control -Disposition: pending PT/OT recommendations. Anticipate discharge to home INTERVAL HPI: No acute events overnight. Pain controlled. Denies fevers and chills. Denies chest pain and shortness of breath. OBJECTIVE: BP 116/59 Pulse 68 Temp 36.5 ?C (97.7 ?F) (Temporal) Resp 20 Ht 175.3 cm (5' 9 ) Wt 104.2 kg (229 lb 11.5 oz) SpO2 100% BMI 33.92 kg/m? Exam: General: NAD, AOx3 Right Lower Extremity: Dressing dry, clean and intact. There is minimal tenderness to palpation about the incision site. Compartments of the thigh and leg are soft and compressible. The patient tolerates passive stretch of the digits. +DF/PF/EHL. SILT carroll/sa/sp/dp/t. BCR of the digits of the foot. Recent Labs 10/18/19 0506 10/16/19 2043 CREAT -- 0.94 BUN -- 16 NA -- 141 K -- see below CHLOR -- 110* CO2 -- 21* ANION -- 10 GLUC -- 104* CA -- 8.6 WBC 6.93 5.28 HB 11.2* 13.5* HCT 35.0* 41.4 PLT 168 196 COAGS: APTT 23.2 10/16/2019 PT INR 0.98 10/16/2019 SED RATE/CRP: WSR 2 2018 WSR 2 06/10/2016 WSR 8 02/04/2007 CRP 0.3 2018 CRP 0.3 02/04/2007 Imaging: Post-Operative AP Pelvis x-ray demonstrates stable orthopaedic hardware in the right proximal femur in appropriate length, alignment and rotation. Jarret Benitez MD Orthopaedic Surgery 10/18/2019 6:17 AM [facility] THERAPY NTon 10-18-2019 THERAPY NT HNO ID: [id number] Author: Liv (PtVibha Brock Service: Physical Therapy Author Type: Physical Therapist Type: Therapy (PT/OT/Speech/Resp) Filed: 10/18/2019 4:54 PM Note Text: Physical Therapy Treatment SERVICE DATE: 10/18/2019 SERVICE TIME: 1535 to 1600 ROOM: [id number] Recommended Discharge Disposition: Home PT Recommended Discharge Disposition Comments: home with home PT, assist of daughter, pending stair and department training, likely POD#2 Anticipated Discharge Needs: Physical Assist at Home;Supervision at Home Physical Assist at Home for: Cleaning;Laundry;Meals;S elf Care;Shopping;Transporta tion Supervision at Home due to: Decreased safety awareness Recommended Discharge Equipment: Wheeled Walker PT Recommendations to Nursing: Ambulate with device;To bathroom;Transfer to/from chair;OOB for Meals;With assist of 1 person Device: Wheeled Walker(PWB 60lbs RLE) PT 6 Clicks Score: 18 Precautions/Activity Restrictions: Weight Bearing Restrictions;Fall Risk;Lines/Tubes/Drains Extremity With Weight Bearing Restricted: Right Lower Extremity Right Lower Extremity Weight Bearing Status: PWB(60 lbs) ASSESSMENT : Patient progressing well towards goals. Used scale to reinforce 60lb partial weight bearing right lower extremity, patient demonstrates compliance with ambulation, transfers. Tolerates right hip fracture protocol therapeutic exercise. Patient would benefit from additional physical therapy to address deficits, improve strength/balance/mobilit y. Recommend home PT at discharge. Patient Disposition at Start of Session: Supine in Bed;Call [facility] in Reach Patient Disposition at End of Session: Supine in Bed;Call [facility] in Reach Tolerated Full Session Without limitations Physical Therapy Problem List: Education Deficit;Pain;Safety Deficits;Decreased Activity Tolerance;Decreased Strength;Functional Mobility Impairment;Balance Impaired Patient /Caregiver Goals: Go Home Goals for Plan of Care: Able to perform HEP with: Verbal Cues Only(R hip fx protocol therapeutic exercise) Transfer supine to/from sit with: Independent Transfer sit to/from stand with: Independent Ambulate with: Independent Distance: 50ft intervals Device: Wheeled Walker Ambulate up and down steps with: Stand By Assistance Number of steps: 4 Device: Rail;Cane;Crutch(es) Goal: patient will verbalize weight bearing restriction and demonstrate compliance with all functional mobility Progress Toward Goals: Progressing as expected Rehab Potential: Good PLAN: Treatment Frequency (times per week): 7;BID Current admission Treatment Interventions: Education;Strengthening; Functional Mobility Training;Balance Training;Neuromuscular Re-education;Pain Management Plan of Care developed with: Patient TREATMENT INTERVENTIONS: Therapy Diagnosis: Reduced mobility-other;Muscle Weakness (generalized);Unsteadine ss on feet;Abnormalities of gait and mobility-other;General symptoms and signs-other;Difficulty walking-musculoskeletal Interventions Provided: Therapeutic Activity (60406);Gait Training (59180);Therapeutic Exercise (93968) Therapeutic Exercise (07745) Treatment Minutes: 10 1 unit Skilled Intervention(s): Patient completed right hip fracture protocol (ankle pump, quad set, gluteal set, heel slide, hip abd/add to neutral, short arc quad) x 10 reps with min amount of assist. Patient reports moderate pain. Patient set up with ice to surgical hip and elevated lower extremity as needed. Therapeutic Activity (06090) Treatment Minutes: 5 Skilled Intervention(s): Bed mobility: supine to sit with cues to long sit propped on elbows, move bilateral lower extremity to edge of bed, patient uses left lower extremity to assist right lower extremity, min assist for right lower extremity In transition to floor support. Sit to supine with assist bilateral lower extremity, cues for eccentric trunk control, requires moderate assist. Gait Training (13870) Treatment Minutes: 8 1 unit Skilled Intervention(s): Instruction in sit to stand technique with proper hand placement and body positioning at edge of bed/chair - cues for hand placement, weight bearing status. Instruction in stand to sit technique with LE's touching chair/bed and reaching back for surface- cues for hand placement, eccentric control, protection right lower extremity Instruction in sequencing, gait pattern, Instruction in WB precautions- partial weight bearing right lower extremity 60lbs - used scale for patient feedback during stepping, maintaining weight bearing precautions and Instruction in use of equipment, cues for sequence and pattern - Education with safe front wheeled walker usage including pacing, upright posture, sequencing, gait pattern and proper foot/body placement within the frame of the walker. Total Timed Code Treatment Minutes: 23 Total Treatment Time (minutes): 25 SUBJECTIVE: Current Hospital Course: Chart reviewed and no significant medical updates relevant to therapy were noted Reason for Physical Therapy Consult : eval and treat Relevant Past Medical History: HTN, stenosis, asthma, UTI Patient Report: I'm tired. agreeable to physical therapy. Patient contacted son for 10:45 family training tomorrow. Home Environment Patient Lives With: Family Assistance Available: methods time analyst Entry To Home: No Stairs Number Of Stairs Into Home: 4 Number Of Stairs To Bed/Bath: 0 Equipment Owned: Cane Prior Functional Level: Within Functional Limits Prior Functional Level Comments: patient normally independent with self care. Uses a cane to get around. Plans to stay with dtr at d/c, who has 1 story home with 4 steps to enter. OBJECTIVE: CURRENT FUNCTIONAL STATUS: Current Functional Mobility Assist Level Additional Information Rolling Supine to Sit Minimal Assistance Sit to Supine Moderate Assistance Scooting Stand By Assistance Sit to Stand Contact Guard Assistance Stand to Sit Contact Guard Assistance Bed to Chair Toilet/Commode Gait Contact Guard Assistance Gait Device: Wheeled Walker Gait Distance (feet): 15ftx2 Stairs Curb Step Car Transfer Gait Deviations Right Lower Extremity: Weight bearing decreased(PWB 60lbs) General Deviations/Observations: Tati decreased;Flexed trunk posture;Non-functional gait speed;Step length decreased Balance: Static Sitting;Dynamic Sitting;Static Standing;Dynamic Standing Static Sitting Balance: Good Patient able to maintain balance without handhold support, limited postural sway Dynamic Sitting Balance: Good Patient accepts moderate challenge, able to maintain balance while picking up object off floor Static Standing Balance: Fair Patient able to maintain balance with handhold support, may require occasional minimal assistance Dynamic Standing Balance: Fair Patient accepts minimal challenge, able to maintain balance while turning head/trunk JH-HLM: 7: Walk 25 feet or more Please see discipline specific clinical documentation flowsheet for complete details for this therapy evaluation/treatment. SIGNATURE: Liv Brock, PT PATIENT NAME: Velia Bagley DATE: October 18, 2019 TIME: 4:48 PM [facility] THERAPY NT HNO ID: [id number] Author: Liv HarperPtVibha Brock Service: Physical Therapy Author Type: Physical Therapist Type: Therapy (PT/OT/Speech/Resp) Filed: 10/18/2019 1:12 PM Note Text: Physical Therapy Evaluation SERVICE DATE: 10/18/2019 SERVICE TIME: 930 to 954 ROOM: [id number] Recommended Discharge Disposition: Home PT Recommended Discharge Disposition Comments: home with home PT, assist of daughter, pending stair and department training, likely POD#2 Anticipated Discharge Needs: Physical Assist at Home;Supervision at Home Physical Assist at Home for: Cleaning;Laundry;Meals;S elf Care;Shopping;Transporta tion Supervision at Home due to: Decreased safety awareness Recommended Discharge Equipment: Wheeled Walker PT Recommendations to Nursing: Ambulate with device;To bathroom;Transfer to/from chair;OOB for Meals;With assist of 1 person Device: Wheeled Walker(partial weight bearing RLE 60lbs) PT 6 Clicks Score: 17 Precautions/Activity Restrictions: Weight Bearing Restrictions;Fall Risk;Lines/Tubes/Drains Extremity With Weight Bearing Restricted: Right Lower Extremity Right Lower Extremity Weight Bearing Status: PWB(60 lbs) ASSESSMENT : This patient was admitted for closed displaced fracture of right femoral neck, has the past medical history of HTN, TIA with left residual deficits impacting current functional level, as well as the social factors complicating the discharge of lives alone, plans to discharge to daughter's house with 4 steps to enter. This patient is below baseline functioning of independent at cane and will benefit from continued skilled therapy in the hospital for treatment of the following body systems/impairments: musculoskeletal, neuromuscular (strength, endurance, balance, safety awareness, gait, transfers, stairs, device management). Patient Disposition at Start of Session: Supine in Bed;Call [facility] in Reach Patient Disposition at End of Session: OOB in Chair;Call [place] in Reach Tolerance Limited By Alertness Physical Therapy Problem List: Education Deficit;Pain;Safety Deficits;Decreased Activity Tolerance;Decreased Strength;Functional Mobility Impairment;Balance Impaired Patient /Caregiver Goals: Go Home Goals for Plan of Care: Able to perform HEP with: Verbal Cues Only(R hip fx protocol therapeutic exercise) Transfer supine to/from sit with: Independent Transfer sit to/from stand with: Independent Ambulate with: Independent Distance: 50ft intervals Device: Wheeled Walker Ambulate up and down steps with: Stand By Assistance Number of steps: 4 Device: Rail;Cane;Crutch(es) Goal: patient will verbalize weight bearing restriction and demonstrate compliance with all functional mobility Rehab Potential: Good PLAN: Treatment Frequency (times per week): 7;BID Current admission Treatment Interventions: Education;Strengthening; Functional Mobility Training;Balance Training;Neuromuscular Re-education;Pain Management Plan of Care developed with: Patient TREATMENT INTERVENTIONS: Therapy Diagnosis: Reduced mobility-other;Muscle Weakness (generalized);Unsteadine ss on feet;Abnormalities of gait and mobility-other;General symptoms and signs-other;Difficulty walking-musculoskeletal Interventions Provided: Evaluation;Therapeutic Exercise (13622);Gait Training (88738) $ Evaluation-Moderate (40540) Billed Units: 1 unit History and examination of body systems see assessment section above. This patient?s clinical presentation is evolving. The patient required a moderate complexity evaluation. Therapeutic Exercise (09741) Treatment Minutes: 2 Skilled Intervention(s): Patient completed right hip fracture protocol (ankle pump, quad set, gluteal set) x 10 reps with min amount of assist. Patient reports moderate pain. Patient set up with ice to surgical hip and elevated lower extremity as needed. Gait Training (41128) Treatment Minutes: 8 1 unit Skilled Intervention(s): Instruction in sit to stand technique with proper hand placement and body positioning at edge of bed/chair - cues for hand placement, leg placement, push through left lower extremity Instruction in stand to sit technique with LE's touching chair/bed and reaching back for surface- cues to back up to surface, reach back, kick right lower extremity out, eccentric control, min assist Instruction in sequencing, gait pattern - walker, right lower extremity, left lower extremity with increase bilateral upper extremity weight bearing during single leg stance on right lower extremity To maintain partial weight bearing 60lbs Instruction in correction of gait deviations - see below, cues to correct Instruction in WB precautions - instructed prior to mobility, partial weight bearing 60lb and importance in healing and Instruction in use of equipment, cues for sequence and pattern - Education with safe front wheeled walker usage including pacing, upright posture, sequencing, gait pattern and proper foot/body placement within the frame of the walker. Total Timed Code Treatment Minutes: 10 Total Treatment Time (minutes): 24 SUBJECTIVE: Current Hospital Course: Chart reviewed; Patient admitted after fall, right femoral neck fracture. 10/16 Procedure(s): Procedure(s) (LRB): IMPLANT SCREW CANNULATED HIP WITH C-ARM (Right) Anesthesia: Choice - Anesthesia Consult - fascia illiaca block in ED and post-op Reason for Physical Therapy Consult : eval and treat Relevant Past Medical History: HTN, stenosis, asthma, UTI Patient Report: I know this is going to hurt. agreeable to physical therapy. Home Environment Patient Lives With: Family Assistance Available: methods time analyst Entry To Home: No Stairs Number Of Stairs Into Home: 4 Number Of Stairs To Bed/Bath: 0 Equipment Owned: Cane Prior Functional Level: Within Functional Limits Prior Functional Level Comments: patient normally independent with self care. Uses a cane to get around. Plans to stay with dtr at d/c, who has 1 story home with 4 steps to enter. OBJECTIVE: Range of Motion: Lower Extremity Comments Right Lower Extremity ROM Comments: ankle WFL, knee approximately 0-50 AROM Left Lower Extremity ROM Comments: WFL Strength: Lower Extremity Comments Right Lower Extremity Strength Comments: grossly 3/5 Left Lower Extremity Strength Comments: grossly 4/5 CURRENT FUNCTIONAL STATUS: Current Functional Mobility Assist Level Additional Information Rolling Supine to Sit Minimal Assistance Sit to Supine Scooting Stand By Assistance Sit to Stand Minimal Assistance Stand to Sit Minimal Assistance Bed to Chair Toilet/Commode Gait Minimal Assistance Gait Device: Wheeled Walker Gait Distance (feet): 40ftx2 Stairs Curb Step Car Transfer Gait Deviations Right Lower Extremity: Weight bearing decreased(PWB 60lb) General Deviations/Observations: Tati decreased;Flexed trunk posture;Non-functional gait speed;Step length decreased Balance: Static Sitting;Dynamic Sitting;Static Standing;Dynamic Standing Static Sitting Balance: Good Patient able to maintain balance without handhold support, limited postural sway Dynamic Sitting Balance: Fair Patient accepts minimal challenge, able to maintain balance while turning head/trunk Static Standing Balance: Fair Patient able to maintain balance with handhold support, may require occasional minimal assistance Dynamic Standing Balance: Fair Patient accepts minimal challenge, able to maintain balance while turning head/trunk JH-HLM: 7: Walk 25 feet or more Please see discipline specific clinical documentation flowsheet for complete details for this therapy evaluation/treatment. SIGNATURE: Liv Brock PT PATIENT NAME: Velia Bagley DATE: October 18, 2019 TIME: 1:07 PM [facility] THERAPY NT HNO ID: [id number] Author: Monserrat HarperOtr/Fiorella Smith Service: Occupational Therapy Author Type: Occupational Therapist Type: Therapy (PT/OT/Speech/Resp) Filed: 10/18/2019 11:44 AM Note Text: Occupational Therapy Evaluation SERVICE DATE: 10/18/2019 SERVICE TIME: 8077 to 2413 ROOM: [id number] Recommended Discharge Disposition: Home OT Recommended Discharge Disposition Comments: patient would benefit from family training in department Anticipated Discharge Needs: Physical Assist at Home;Supervision at Home Physical Assist at Home for: Cleaning;Laundry;Meals;S elf Care;Shopping;Transporta tion Supervision at Home due to: Decreased safety awareness OT Recommendations to Nursing: To Bathroom for ADL?s /and or Toileting;OOB for meals;With assist of 1 person Equipment: Wheeled Walker OT 6 Clicks Score: 19 Precautions/Activity Restrictions: Weight Bearing Restrictions;Fall Risk;Lines/Tubes/Drains Extremity With Weight Bearing Restricted: Right Lower Extremity Right Lower Extremity Weight Bearing Status: PWB(60 lbs) ASSESSMENT: Patient presents with deficits in feeding, grooming, UE bathing/dressing, LE bathing/dressing, functional transfers, functional mobility, decreased safety awareness, and decreased insight to deficits after right CRPP. Requires skilled OT to maximize independence with ADLs and functional transfers. Patient Disposition at Start of Session: Supine in Bed;Call [facility] in Reach Patient Disposition at End of Session: OOB in Chair;Call [place] in Reach Tolerated Full Session Occupational Therapy Problem List: Safety Deficits;Impaired Self Care;Decreased Activity Tolerance;Decreased Strength;Functional Mobility Impairment;Balance Impaired Patient /Caregiver Goals: Go Home Goals for Plan of Care: Able to perform HEP with: Verbal Cues Only(UB strengthening program) Grooming with: Set Up(standing at sink) Upper Body Bathing with: Independent Upper Body Dressing with: Independent Lower Body Bathing with: Modified Independent Lower Body Dressing with: Modified Independent Toilet Hygiene with: Supervision Chair Transfer with: Supervision Toilet Transfer with: Supervision Tub Transfer with: Supervision Car Transfer with: Supervision Tolerate (minutes of functional activity): 35 Functional Activity with: Supervision Demonstrate Competence With Education with: Supervision(adhere to WBS/safety ) Rehab Potential: Good PLAN: Treatment Frequency (times per week): 5(2-5) Current admission Treatment Interventions: Education;Self Care / Home Management;Energy Conservation Training;Strengthening;F unctional Mobility Training;Balance Training Plan of Care developed with: Patient TREATMENT INTERVENTIONS: Therapy Diagnosis: Reduced mobility-other;Decreased activities of daily living (ADL);Muscle Weakness (generalized);Unsteadine ss on feet;General symptoms and signs-other Interventions Provided: Evaluation;Self Retirement Management (31098) $ Evaluation-Low (68371) Billed Units: 1 unit OT Evaluation Low Complexity: Occupational Profile - Brief review of patient's medical record completed (please see current hospital course of evaluation). Occupational Performance - Pt presents with deficits in feeding, grooming, UE bathing/dressing, LE bathing/dressing, functional transfers, functional mobility, decreased safety awareness, decreased insight into deficits Complexity in Clinical Decision Making - The extent of clinical reasoning was low, number of treatment options limited, no need for modifications during the evaluation process, no comorbidities present to affect patient's occupational performance. Self Retirement Management (15713) Treatment Minutes: 10 1 unit Skilled Intervention(s):Educated on the role of OT in the acute care setting. Instructed in post-op instructions during ADLs after R CRPP. Reviewed 60 lb weight restriction during self care tasks. Instructed in energy conservation during ADLs and functional transfers, provided increased time and rest breaks as needed due to fatigue and weakness. Provided instruction, cuing and facilitation for lower body dressing (donning pants/socks/underwear.) Educated on use of AE to assist with LB dressing. Education in fall prevention and walker management during mobility to bathroom. Facilitated simulated commode transfer, provided education on hand and body placement and safety while reaching back for stable surface. Total Timed Code Treatment Minutes: 10 Total Treatment Time (minutes): 23 SUBJECTIVE: Current Hospital Course: Chart reviewed; . Fell out of car. +right femoral neck fracture. S/p: right CRPP. 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 I am going to stay with my daughter for a little bit. Home Environment Patient Lives With: Family Assistance Available: methods time analyst Entry To Home: No Stairs Equipment Owned: Cane Prior Functional Level: Within Functional Limits Prior Functional Level Comments: patient normally independent with self care. Uses a cane to get around. Plans to stay with dtr at d/c, who has 1 story home with 4 steps to enter. OBJECTIVE: Cognition/Communication Deficits Responsiveness: Alert Follows Commands: 1-step Commands Executive Function Deficits: Safety Awareness Safety Awareness Deficit: Minimal impairment Cognitive Clinical Tests and Screens: Mini Cog Clock Draw Test: 0-Abnormal Word Recall: 3-recalled words Mini Cog Score: 3 CURRENT FUNCTIONAL STATUS: Current Activities of Daily Living Assist Level Feeding Set Up Grooming Stand By Assistance Bathing Upper Body Stand By Assistance Bathing Lower Body Moderate Assistance Dressing Upper Body Stand By Assistance Dressing Lower Body Moderate Assistance Toileting Stand By Assistance Functional Mobility Assist Level Rolling Supine to Sit Minimal Assistance Sit to Supine Scooting Minimal Assistance Sit to Stand Minimal Assistance Stand to Sit Minimal Assistance Bed to Chair Toilet/Commode Minimal Assistance Functional Mobility Minimal Assistance Wheeled Walker Functional Mobility Comments: functional mobility to bathroom Range of Motion: WFL Strength: WFL Except;Upper Extremity Comments Right Upper Extremity Strength Comments: 4/5 Left Upper Extremity Strength Comments: 4-/5(h/o stroke ) Balance: Static Standing;Dynamic Standing Static Standing Balance: Fair Patient able to maintain balance with handhold support, may require occasional minimal assistance Dynamic Standing Balance: Fair Patient accepts minimal challenge, able to maintain balance while turning head/trunk Please see discipline specific clinical documentation flowsheet for complete details for this therapy evaluation/treatment. SIGNATURE: Monserrat Smith OTR/L PATIENT NAME: Velia Bagley DATE: October 18, 2019 TIME: 11:40 AM [facility] ALLIED HEALTHon 10-17-2019 ALLIED HEALTH HNO ID: [id number] Author: Jo (Bull) Giovana Service: Nursing Author Type: Registered Nurse Type: Allied Health Filed: 10/17/2019 8:19 AM Note Text: ANCILLARY ORTHOPEDIC RESERVE OFFICER PROGRESS NOTE SERVICE DATE: 10/17/2019 SERVICE TIME: 0810 Spoke to patient at bedside, he is doing ok, pain managed. Patient to OR today for RONALD. He is from home with son, lives in a ranch home, no steps to enter. Patient states he has a ww/cane/shower chair at home, plans to discharge home with [facility], pending PT eval following surgery. I will continue to follow for needs, complete care guide given and explained. SIGNATURE: Jo Cruz RN PATIENT NAME: Velia Bagley DATE: October 17, 2019 TIME: 8:17 AM PAGER/CONTACT #: [phone] [facility] ANES Nella 10-17-2019 ANES POST HNO ID: [id number] Author: Andi Fernando Service: Anesthesiology Author Type: Physician Type: Anesthesia PostOp Filed: 10/17/2019 6:34 PM Note Text: POST ANESTHESIA EVALUATION NOTE SERVICE DATE: 10/17/2019 SERVICE TIME: 6:34 PM : 1960 Vitals: 10/17/19 0336 10/17/19 1043 10/17/19 1200 10/17/19 1715 Temp: 36.7 ?C (98 ?F) 36.5 ?C (97.7 ?F) 36.4 ?C (97.5 ?F) 36 ?C (96.8 ?F) 10/16/19 2340 10/17/19 0336 10/17/19 1043 10/17/19 1200 BP: 137/92 102/54 129/83 146/93 10/17/19 0336 10/17/19 1043 10/17/19 1200 10/17/19 1300 Pulse: 60 82 82 80 10/17/19 0336 10/17/19 1043 10/17/19 1200 10/17/19 1300 Resp: 18 21 16 16 10/17/19 0336 10/17/19 1043 10/17/19 1200 10/17/19 1300 SpO2: 95% 96% 97% 97% Validated Vital Signs: Yes POST ANES STATUS: No apparent anesthetic complications. The patient is appropriately hydrated with stable respiratory and cardiovascular status. Patient has safe and adequate airway control. The patient has appropriate pain relief and no significant post operative nausea or vomiting. The patient has achieved baseline mental status. Intra-Operative Events: No Significant Anesthesia Events Further assessment by Anesthesia Service: None Other Remarks: SIGNATURE: Andi Fernando MD PATIENT NAME: Velia Bagley DATE: October 17, 2019 TIME: 6:34 PM PAGER/CONTACT #: [facility] ANES PREOPon 10-17-2019 ANES PREOP HNO ID: [id number] Author: Edith Fernando Service: Anesthesiology Author Type: Anesthesiologist Type: Anesthesia PreOp Filed: 10/17/2019 1:15 PM Note Text: ANESTHESIOLOGY DAY OF SURGERY NOTE SERVICE DATE: 10/17/2019 SERVICE TIME: 1:10 PM : 1960 Procedure(s) (LRB): IMPLANT SCREW CANNULATED HIP WITH C-ARM (Right) HEMIARTHROPLASTY REPLACE JOINT PARTIAL HIP (Right) Surgeon(s): Hiral Castaneda Estimated body mass index is 33.92 kg/m? as calculated from the following: Height as of this encounter: 175.3 cm (5' 9 ). Weight as of this encounter: 104.2 kg (229 lb 11.5 oz). Most recent hematocrit and potassium results: Hematocrit 41.4 10/16/2019 Potassium see below 10/16/2019 ANES DOS/PREOP NOTE: Vitals: 10/17/19 0336 10/17/19 1043 10/17/19 1200 10/17/19 1300 BP: 102/54 129/83 146/93 Pulse: 60 82 82 80 Resp: 18 16 16 Temp: 36.7 ?C (98 ?F) 36.5 ?C (97.7 ?F) 36.4 ?C (97.5 ?F) TempSrc: Oral Axillary Temporal SpO2: 95% 96% 97% 97% Weight: Height: ACTIVE PROBLEM LIST Variants of Migraine, Not Elsewhere Classified, With Intractable Migraine, So Stated, Without Mention of Status Migrainosus Carpal Tunnel Syndrome Cervicalgia Myalgia and Myositis, Unspecified Iron Deficiency Anemia Weakness Lymphadenopathy Closed Displaced Fracture of Right Femoral Neck (Hcc) PAST MEDICAL HISTORY Diagnosis Date - Carpal tunnel syndrome, bilateral - Essential tremor - GERD (gastroesophageal reflux disease) - History of lumbar laminectomy - HTN (hypertension) - Lumbar spinal stenosis - Migraines - Osteoarthritis - Severe persistent asthma - TIA (transient ischemic attack) - UTI (urinary tract infection) PAST SURGICAL HISTORY Procedure Laterality Date - LAMINECTOMY,LUMBAR 03/2016 L4-L5 - PAST SURGICAL HISTORY OF x 16 surgeries surgery to repair bone in knee cap and multiple arthroscopies and debridements - PAST SURGICAL HISTORY OF 2018 bronchoscopy FAMILY HISTORY Problem Relation Age of Onset - Emphysema Mother - Blood Clots Mother required IVC filter. Multiple blood clots before (3-4). - Hypertension Mother - Heart Failure Father 72 of CHF. 2 OR before that - Parkinson?s Disease Father 68 - Prostate Cancer Brother - Parkinson?s Disease Paternal Grandfather - Diabetes No Family History Social History: Social History Tobacco Use - Smoking status: Never Smoker - Smokeless tobacco: Never Used - Tobacco comment: second hand smoke from father. Substance Use Topics - Alcohol use: No - Drug use: No No current facility-administered medications on file prior to encounter. Current Outpatient Medications on File Prior to Encounter Medication Sig - amLODIPine (NORVASC) 5 mg tablet Take 5 mg by mouth once daily. - cloNIDine HCl (CATAPRES) 0.1 mg tablet Take 0.1 mg by mouth twice daily before meals (0600/1600). - umeclidinium (INCRUSE ELLIPTA) 62.5 mcg/actuation inhaler Inhale 1 Puff as instructed once daily. - tamsulosin ER (FLOMAX) 0.4 mg cap TAKE 2 CAPSULES BY MOUTH EVERY DAY (Patient taking differently: 0.4 mg twice daily. ) - nitrofurantoin monohydrate and macrocrystal (MACROBID) 100 mg capsule TAKE 1 CAPSULE BY MOUTH EVERY DAY - primidone (MYSOLINE) 50 mg tablet Take 250 mg by mouth daily at bedtime. - amitriptyline (ELAVIL) 100 mg tablet Take 50 mg by mouth daily at bedtime. - atorvastatin (LIPITOR) 20 mg tablet Take 40 mg by mouth once daily. - FASENRA 30 mg/mL injection Inject 30 mg subcutaneously every 8 weeks. Next one due 11/15/19 - budesonide-formoterol (SYMBICORT) 160-4.5 mcg/actuation inhaler Inhale 2 Puffs as instructed twice daily. - gabapentin (NEURONTIN) 300 mg capsule Take 800 mg by mouth four times daily. - losartan (COZAAR) 100 mg tablet Take 100 mg by mouth once daily. - rizatriptan (MAXALT) 10 mg tablet Take 10 mg by mouth as needed. - fluticasone (FLONASE) 50 mcg/actuation nasal spray Use 2 Sprays in each nostril once daily. - omeprazole (PRILOSEC) 20 mg capsule Take 1 capsule by mouth daily before dinner. 30 MINUTES BEFORE DINNER. (Patient taking differently: Take 20 mg by mouth twice daily. 30 MINUTES BEFORE DINNER. ) - montelukast (SINGULAIR) 10 mg tablet Take 10 mg by mouth daily at bedtime. - potassium chloride ER (K-DUR, KLOR-CON) 20 mEq tablet Take 20 mEq by mouth four times daily. - spironolactone (ALDACTONE) 25 mg tablet Take 25 mg by mouth once daily. - celecoxib (CELEBREX) 200 mg capsule Take 200 mg by mouth four times daily. - ALBUTEROL SULFATE (PROAIR HFA INHALATION) Inhale 2 Puffs as instructed. Prn SOB - topiramate (TOPAMAX) 100 mg tablet 2 in am, 1 at noon, 1 at evening and 2 at bedtime (600 mg/day total) (Patient taking differently: 100 mg. 2 in am, 1 at noon, 2 at evening and 1 at bedtime (600 mg/day total)) - NASAL ALLERGY 55 mcg nasal inhaler Current Facility-Administered Medications Medication Dose Route Frequency Provider Last Rate Last Dose - [MAR Hold due to Transfer] glycopyrrolate 15.6 mcg cap(s) and device for inhalation (SEEBRI NEOHALER) 15.6 mcg INHALATION BID Jayant (Betty) MD Carola - [MAR Hold due to Transfer] SUMAtriptan 100 mg tab(s) (IMITREX) 100 mg ORAL DIRECTED PRN Jayant Srivastava MD - [MAR Hold due to Transfer] pantoprazole DR 40 mg tab(s) (PROTONIX) 40 mg ORAL BID AC () Jayant Srivastava MD - [MAR Hold due to Transfer] amitriptyline 50 mg tab(s) (ELAVIL) 50 mg ORAL AT BEDTIME Payal Chacko) Priscilla - [MAR Hold due to Transfer] atorvastatin 40 mg tab(s) (LIPITOR) 40 mg ORAL AT BEDTIME Payal Barajas - [MAR Hold due to Transfer] tamsulosin ER 0.4 mg cap(s) (FLOMAX) 0.4 mg ORAL BID Payal Barajas - [MAR Hold due to Transfer] cloNIDine HCl 0.1 mg tab(s) (CATAPRES) 0.1 mg ORAL BID AC () Payal Barajas - [MAR Hold due to Transfer] amLODIPine 5 mg tab(s) (NORVASC) 5 mg ORAL DAILY Payal Barajas - [MAR Hold due to Transfer] topiramate 200 mg tab(s) (TOPAMAX) 200 mg ORAL DAILY Payal Barajas - [MAR Hold due to Transfer] topiramate 100 mg tab(s) (TOPAMAX) 100 mg ORAL q NOON Payal Chacko) Priscilla - [MAR Hold due to Transfer] topiramate 100 mg tab(s) (TOPAMAX) 100 mg ORAL AT BEDTIME Payal Barajas - [MAR Hold due to Transfer] gabapentin 800 mg cap(s) (NEURONTIN) 800 mg ORAL QID Payal Barajas - [MAR Hold due to Transfer] tiZANidine 8 mg tab(s) (ZANAFLEX) 8 mg ORAL AT BEDTIME Jayant (Don Srivastava MD 8 mg at 10/17/1921 - [MAR Hold due to Transfer] spironolactone 25 mg tab(s) (ALDACTONE) 25 mg ORAL DAILY Jayant (Betty) MD Carola - [MAR Hold due to Transfer] celecoxib 200 mg cap(s) (CeleBREX) 200 mg ORAL QID Jayant (Betty) MD Carola - [MAR Hold due to Transfer] montelukast 10 mg tab(s) (SINGULAIR) 10 mg ORAL AT BEDTIME Jayant (Betty) MD Carola - [MAR Hold due to Transfer] potassium chloride ER 20 mEq tab(s) (K-DUR, KLOR-CON) 20 mEq ORAL QID Jayant (Betty) MD Carola - [MAR Hold due to Transfer] aspirin, enteric coated 81 mg tab(s) 81 mg ORAL DAILY Jayant (Betty) MD Carola - [MAR Hold due to Transfer] losartan 100 mg tab(s) (COZAAR) 100 mg ORAL DAILY Jayant (Betty) MD Carola - [MAR Hold due to Transfer] primidone 250 mg tab(s) (MYSOLINE) 250 mg ORAL AT BEDTIME Jayant (Betty) MD Carola 250 mg at 10/17/1920 - [MAR Hold due to Transfer] lactated ringers infusion 125 mL/hr INTRAVENOUS CONTINUOUS Jayant Srivastava MD 125 mL/hr at 10/17/192 125 mL/hr at 10/17/1921 - [MAR Hold due to Transfer] NaCl 0.9% 2-10 mL 2-10 mL INTRAVENOUS q 12 H Jayant Srivastava MD - [MAR Hold due to Transfer] morphine 2 mg injection 2 mg INTRAVENOUS q 3 H PRN Jayant Srivastava MD 2 mg at 10/17/191 - [MAR Hold due to Transfer] oxyCODONE IR 5 mg tab(s) (ROXICODONE) 5 mg ORAL q 6 H PRN Jayant Srivastava MD 5 mg at 10/17/1920 - [MAR Hold due to Transfer] docusate sodium 100 mg cap(s) (COLACE) 100 mg ORAL BID Jayant (Don Srivastava MD Allergies: ALLERGIES Allergen Reactions - Avocado Swelling - Baclofen Other: See Comments Dizziness and full body weakness - Candasartan [Other] Rash - Chocolate Unknown - Ciprofloxacin (Bulk) Anaphylaxis - Grass Pollen Unknown - Indocin [Indomethac* Rash - Iodine Anaphylaxis - Penicillins Rash - Lima Oil Unknown - Propranolol Other: See Comments Severe low bp and kidneys shutting down. - Sulfa (Sulfonamide * Rash, Itching - Valium [Diazepam] Other: See Comments Depression DOS EXAM: Adequate NPO status: Yes Anesthetic risks, benefits, alternatives, personnel and consent discussed: Yes Patient agrees to proceed: Yes Previous Anesthesia: No history of adverse event. Airway Assessment: MP 2; Neck ROM: Full ROM without neurologic symptoms; Airway Evaluation: Short Neck, Thick neck, Small Mouth Opening and Pena Present Symptoms of Sleep Apnea: Age over 50 (59 year old) and Male gender Dentition: Chipped, loose and/or missing Additional Physical Exam: Lungs: Patient health status unchanged since recent history and physical. See history and physical for exam findings. Cardiac: Patient health status unchanged since recent history and physical. See history and physical for exam findings. Additional Pertinent Findings: N/A Blood Products: Not anticipated for this procedure. 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 I have reviewed the medical record and/or the pre-anesthesia evaluation, pertinent labs, and test results. Significant changes in the patient's condition since the History and Physical, not otherwise documented in primary service progress notes: No This contains updated information obtained within 48 hours of Surgery/Procedure. SIGNATURE: Edith Fernando MD PATIENT NAME: Velia Bagley DATE: October 17, 2019 TIME: 1:10 PM CSN: [id number] [facility] BRIEF OP NOTon 10-17-2019 BRIEF OP NOT HNO ID: [id number] Author: Elizabeth Ferro Service: Orthopaedic Surgery Author Type: Resident Type: Brief Op Note Filed: 10/17/2019 5:07 PM Note Text: ORTHO BRIEF OPERATIVE REPORT PATIENT NAME: Velia Bagley LOG ID: [id number] Surgery/Procedure Date: 10/17/2019 Incision/Procedure Start Time: 4:15 PM Incision Close/Procedure End Time: Surgeon(s)/Proceduralist (s) and Silk Brusher(s): Surgeon(s) and Role: * Hiral Castaneda - Primary * Sally De Leon - Resident - Assisting * Elizabeth Ferro - Resident - Assisting * Jarret (Res) Emmanuel - Resident - Assisting No Additional Staff Procedure(s): Procedure(s) (LRB): IMPLANT SCREW CANNULATED HIP WITH C-ARM (Right) Anesthesia: Choice - Anesthesia Consult Pre-Op/Pre-Procedure Diagnosis: R femoral neck fracture Post-Op/Post-Procedure Diagnosis: Same Implant: Implant Name Type Inv. Item Serial No. Animal Care Provider Lot No. LRB No. Used Action BIT 5MM LARGE 300MM 2.9MM DRILL LARGE QUICK COUPLING CANNULATED NONSTERILE - [id number] Bit BIT 5MM LARGE 300MM 2.9MM DRILL LARGE QUICK COUPLING CANNULATED NONSTERILE [employer] [place] 1 SCREW 7.3MM 8.2MM 4MM PARTIAL THREAD STAINLESS STEEL 90MM 32MM BONE - [id number] Screw SCREW 7.3MM 8.2MM 4MM PARTIAL THREAD STAINLESS STEEL 90MM 32MM BONE [employer] Right 1 Implanted SCREW 7.3MM 8.2MM 4MM PARTIAL THREAD STAINLESS STEEL 85MM 32MM BONE - [id number] Screw SCREW 7.3MM 8.2MM 4MM PARTIAL THREAD STAINLESS STEEL 85MM 32MM BONE SY[employer] TRAUMA Right 1 Implanted SCREW 7.3MM STAINLESS STEEL 90MM 16MM BONE CANNULATED NONSTERILE CANNULATED - [id number] Screw SCREW 7.3MM STAINLESS STEEL 90MM 16MM BONE CANNULATED NONSTERILE CANNULATED [employer] Right 1 Implanted GUIDEWIRE 2.8MM STAINLESS STEEL 300MM ORTHOPEDIC TROCAR THREAD 7.3MM - [id number] Wire GUIDEWIRE 2.8MM STAINLESS STEEL 300MM ORTHOPEDIC TROCAR THREAD 7.3MM [employer] [place] Right 4 Implanted Fluids: Per anesthesia Estimated Blood Loss: 100 cc Guthrie: Per anesthesia Specimens: None Drains: None Findings: See full operative report Complications: None Special medications: Vanc/clinda Participation in Procedure: I/primary surgeon/proceduralist performed the procedure with assistance. Post op plan: -Pain control -Weight Bearing Status: PWB RLE 60 lbs -PT/OT -DVT ppx: ASA 325 mg BID until heme/onc recs given for DVT ppx -Guthrie: dc POD1 after up with PT. Order already placed. -Post op Abx: vanc x 1 dose -Post op xray -Aquacel dressing, monocryl closure. Maintain dressing 10-14 days -D/C planning: Pending PT recs. Anticipate dc home upon discharge Elizabeth Ferro MD PGY-4 October 17, 2019 5:05 PM Pager: [phone] [facility] CASE MGT INIT INESon 2019 CASE MGT INIT [facility] HNO ID: [id number] Author: Jennifer Garvin (Sw) Service: Care Management Author Type: Insulation Cupola Charger Type: Care Mgt Initial Assessment Filed: 10/17/2019 10:07 AM Note Text: CARE MANAGEMENT: ASSESSMENT AND DISCHARGE PLAN SERVICE DATE: October 17, 2019 SERVICE TIME: 1000 PRIMARY CARE PHYSICIAN: Rachel Rayo MD ADMISSION STATUS: Inpatient Needs Prior to Discharge: OT/PT Evaluation MEDICAL: ELIER QUINTANA Patient/Public Health Doctor Stated Goals: To have reduction in symptoms;To improve my functional status Health Insurance: [email or web address] Issues Impacting Discharge Plan: (OR todayfor total hip arthroplasty) Last Discharge Date: 10/15/17 Is this Within the Past 30 days? Last discharge within 30 days: No Advance Directive: Current Advance Directive: None Line Out Worker Attempted to Assist with AD Completion: Yes Action: Patient Unwilling Health LiteracyHow often do you need to have someone help you when you read instructions, pamphlets, or other written material from your doctor or pharmacy? : 1 - Never How confident are you filling out medical forms by yourself?: 1 - Extremely If Patient scores > 3 on either question, the following interventions were put into place:: Patient did not score > 3 on either question. Baseline Mental Status Prior to this Illness what was the patient's Baseline Mental Status?: Alert AND Oriented Prior to this illness, has anyone described the patient having any of the following behaviors?: Not Applicable Relationship of the informant to the patient:: Self Functional Status: Independent Does Patient Currently Receive Any Community Services or Home Care?: None Equipment Prior to Admission: Cane;Walker;Glucometer;T ub bench/chair SOCIAL: Living Arrangements: Home Lives With: Son Financial Resources: RetiredPrimary Contact: Extended Emergency Contact Information Primary Emergency Contact: Teri Bagley Relation: Daughter Secondary Emergency Contact: Adams Bagley Mobile Relation: Son Supportive Patient Contact:: Yes Contact Resources: Family Social Needs Food insecurity Worry: Never true Inability: Never true Resources Needed: No Social Needs Financial resource strain: Not hard at all Social Needs Transportation needs Medical: No Non-medical: No Caregiver AssessmentCaregiver is ready, willing and able to meet the patient's needs as recommended by the inter-professional team:: No Caregiver needed Does the patient have an acute stroke diagnosis, or has the patient had a stroke during this admission?: No Patient's transition needs and plan for meeting these needs: Plan for surgery today, current plan to return home. Patient's perception of need for this admission: Fall Medication Adherance I am convinced of the importance of my prescription medication: 0 - Agree Completely I worry that my prescription medication will do more harm than good to me : 0 - Disagree Completely I feel financially burdened by my [id number] expenses for my prescription medication:: 0 - Disagree Completely Risk Score: 0 Patient is categorized as: Low risk < 2 Are you interested in bedside delivery of your medications? No Is Patient Psychosocially Complex?: No ASSESSMENT AND PLAN: Medical Needs: Medical Needs: Two or more chronic diseases Psychosocial Needs: Psychosocial Needs: None FREEDOM OF CHOICE EXPLAINED: [place] of Choice Given: No Reason Not Given: No placements necessary POTENTIAL TRANSITION PLANS Home Pt from home with spouse. Pt IND, +DME, +PCP, +rx coverage. 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 Rx coverage at [facility]. Plan for surgery today. Plan for home at discharge. SIGNATURE: EDI Neri PATIENT NAME: Velia Bagley DATE: October 17, 2019 TIME: 10:05 AM PAGER/CONTACT #: [phone] [facility] CONSULTon 10-17-2019 CONSULT HNO ID: [id number] Author: Jaskaran Mcdonnell MD Service: Hospital Medicine Author Type: Physician Type: Consults Filed: 10/17/2019 1:35 AM Note Text: DEPARTMENT OF HOSPITAL MEDICINE INITIAL CONSULT SERVICE DATE: 10/17/2019 SERVICE TIME: 1:21 AM Primary Care Physician: Rachel Rayo MD NIGHT AND WEEKEND COVERAGE: From 7am - 7pm, please call sound After 7pm, please call cross cover pager #[phone] REASON FOR CONSULT: preop evaluation REQUESTING PHYSICIAN: DR. siegel Subjective CHIEF COMPLAINT: Right hip fracture following fall HPI: This is a 59 year old male who presents with the above. Hospital medicine consulted for preop evaluation. Patient denies any chest pain or shortness of breath. Denies any exertional dyspnea. Denies any palpitations. Patient has had multiple surgeries with the most recent being in 2017 for laminectomy and has never experienced any perioperative complications. Patient hasn't any known heart disease. Has asthma which is well controlled. Is the Patient Experiencing Pain: No: 0 on a scale of 0 to 10 PAST MEDICAL HISTORY Diagnosis Date - Carpal tunnel syndrome, bilateral - Essential tremor - GERD (gastroesophageal reflux disease) - History of lumbar laminectomy - HTN (hypertension) - Lumbar spinal stenosis - Migraines - Osteoarthritis - Severe persistent asthma - TIA (transient ischemic attack) - UTI (urinary tract infection) PAST SURGICAL HISTORY Procedure Laterality Date - LAMINECTOMY,LUMBAR 03/2016 L4-L5 - PAST SURGICAL HISTORY OF x 16 surgeries surgery to repair bone in knee cap and multiple arthroscopies and debridements - PAST SURGICAL HISTORY OF 2018 bronchoscopy FAMILY HISTORY Problem Relation Age of Onset - Emphysema Mother - Blood Clots Mother required IVC filter. Multiple blood clots before (3-4). - Hypertension Mother - Heart Failure Father 72 of CHF. 2 OR before that - Parkinson?s Disease Father 68 - Prostate Cancer Brother - Parkinson?s Disease Paternal Grandfather - Diabetes No Family History Social History Tobacco Use - Smoking status: Never Smoker - Smokeless tobacco: Never Used - Tobacco comment: second hand smoke from father. Substance Use Topics - Alcohol use: No - Drug use: No MEDICATIONS: Reviewed umeclidinium (INCRUSE ELLIPTA) 62.5 mcg/actuation inhaler, Inhale 1 Puff as instructed once daily., Disp: , Rfl: tamsulosin ER (FLOMAX) 0.4 mg cap, TAKE 2 CAPSULES BY MOUTH EVERY DAY, Disp: 60 capsule, Rfl: 10 nitrofurantoin monohydrate and macrocrystal (MACROBID) 100 mg capsule, TAKE 1 CAPSULE BY MOUTH EVERY DAY, Disp: 30 capsule, Rfl: 10 Catheter (GUTHRIE CATHETER) 14 Fr misc, Self catheterize 3 times daily. (Patient not taking: Reported on 10/16/2019 ), Disp: 90 Each, Rfl: 11, Not Taking at Unknown time primidone (MYSOLINE) 50 mg tablet, Take 250 mg by mouth daily at bedtime. , Disp: , Rfl: amitriptyline (ELAVIL) 100 mg tablet, Take 25 mg by mouth once daily. , Disp: , Rfl: atorvastatin (LIPITOR) 20 mg tablet, Take 40 mg by mouth once daily. , Disp: , Rfl: FASENRA 30 mg/mL injection, Inject 30 mg subcutaneously every 8 weeks. Next one due 11/15/19 , Disp: , Rfl: budesonide-formoterol (SYMBICORT) 160-4.5 mcg/actuation inhaler, Inhale as instructed., Disp: , Rfl: BREO ELLIPTA 200-25 mcg/dose inhaler, Not taking , Disp: , Rfl: gabapentin (NEURONTIN) 300 mg capsule, Take 300 mg by mouth once daily. , Disp: , Rfl: HYDROcodone-acetaminophe n (NORCO) 5-325 mg per tablet, Take 1 tablet by mouth every 8 hours as needed. , Disp: , Rfl: losartan (COZAAR) 100 mg tablet, Take 100 mg by mouth once daily. , Disp: , Rfl: rizatriptan (MAXALT) 10 mg tablet, Take 10 mg by mouth., Disp: , Rfl: topiramate (TOPAMAX) 200 mg tablet, , Disp: , Rfl: NASAL ALLERGY 55 mcg nasal inhaler, , Disp: , Rfl: fluticasone (FLONASE) 50 mcg/actuation nasal spray, Use 2 Sprays in each nostril once daily., Disp: 1 Bottle, Rfl: 11 FLUoxetine HCl (PROZAC) 40 mg capsule, Take 20 mg by mouth daily at bedtime. Not taking , Disp: , Rfl: aspirin, enteric coated (ADULT LOW DOSE ASPIRIN) 81 mg EC tablet, Take 1 tablet by mouth once daily. (Patient not taking: Reported on 10/16/2019 ), Disp: , Rfl: , Not Taking at Unknown time Ranitidine HCl (ZANTAC) 300 mg tablet, Take 1 tablet by mouth twice daily., Disp: 60 tablet, Rfl: 11 omeprazole (PRILOSEC) 20 mg capsule, Take 1 capsule by mouth daily before dinner. 30 MINUTES BEFORE DINNER., Disp: 30 capsule, Rfl: 11 Dihydroergotamine Mesylate (MIGRANAL) 0.5 mg/pump act. (4 mg/mL) nasal spray, Use 1 [place] in the nose as needed. Use in one nostril as directed. No more than 4 sprays in one hour (Patient not taking: Reported on 05/17/2018 ), Disp: , Rfl: 11 levalbuterol (XOPENEX) 1.25 mg/3 mL nebulizer solution, Use 1 Ampule via nebulizer every 4 hours as needed., Disp: , Rfl: umeclidinium (INCRUSE ELLIPTA) 62.5 mcg/actuation inhaler, Inhale 1 Puff as instructed once daily., Disp: , Rfl: montelukast (SINGULAIR) 10 mg tablet, Take 10 mg by mouth daily at bedtime., Disp: , Rfl: potassium chloride ER (K-DUR, KLOR-CON) 20 mEq tablet, Take 20 mEq by mouth four times daily. , Disp: , Rfl: tamsulosin ER (FLOMAX) 0.4 mg cp24, Take 0.8 mg by mouth. , Disp: , Rfl: spironolactone (ALDACTONE) 25 mg tablet, Take 25 mg by mouth once daily., Disp: , Rfl: celecoxib (CELEBREX) 200 mg capsule, Take 200 mg by mouth four times daily. , Disp: , Rfl: ALBUTEROL SULFATE (PROAIR HFA INHALATION), Inhale 2 Puffs as instructed. Prn SOB, Disp: , Rfl: tiZANidine 4 mg tablet, Take 8 mg by mouth daily at bedtime. , Disp: , Rfl: topiramate (TOPAMAX) 100 mg tablet, 2 in am, 1 at noon, 1 at evening and 2 at bedtime (600 mg/day total) (Patient taking differently: 100 mg. 2 in am, 1 at noon, 2 at evening and 1 at bedtime (600 mg/day total)), Disp: , Rfl: Current Facility-Administered Medications Medication Dose Route Frequency - tiZANidine 8 mg tab(s) (ZANAFLEX) 8 mg ORAL AT BEDTIME - topiramate 100 mg tab(s) (TOPAMAX) 100 mg ORAL BID - spironolactone 25 mg tab(s) (ALDACTONE) 25 mg ORAL DAILY - celecoxib 200 mg cap(s) (CeleBREX) 200 mg ORAL QID - umeclidinium 62.5 mcg/actuation 1 Puff (INCRUSE ELLIPTA) 1 Puff INHALATION DAILY - montelukast 10 mg tab(s) (SINGULAIR) 10 mg ORAL AT BEDTIME - potassium chloride ER 20 mEq tab(s) (K-DUR, KLOR-CON) 20 mEq ORAL QID - Ranitidine HCl tab 300 mg 300 mg ORAL BID - FLUoxetine 20 mg cap(s) (PROzac) 20 mg ORAL AT BEDTIME - aspirin, enteric coated 81 mg tab(s) 81 mg ORAL DAILY - amitriptyline 100 mg tab(s) (ELAVIL) 100 mg ORAL AT BEDTIME - atorvastatin 20 mg tab(s) (LIPITOR) 20 mg ORAL DAILY - budesonide-formoterol 160-4.5 mcg/actuation 2 Puff (SYMBICORT) 2 Puff INHALATION TID PRN - gabapentin 300 mg cap(s) (NEURONTIN) 300 mg ORAL q 12 H - losartan 100 mg tab(s) (COZAAR) 100 mg ORAL DAILY - rizatriptan 10 mg tab(s) (MAXALT) 10 mg ORAL ONCE - primidone 250 mg tab(s) (MYSOLINE) 250 mg ORAL AT BEDTIME - tamsulosin ER 0.8 mg cap(s) (FLOMAX) 0.8 mg ORAL DAILY - lactated ringers infusion 125 mL/hr INTRAVENOUS CONTINUOUS - NaCl 0.9% 2-10 mL 2-10 mL INTRAVENOUS q 12 H - morphine 2 mg injection 2 mg INTRAVENOUS q 3 H PRN - oxyCODONE IR 5 mg tab(s) (ROXICODONE) 5 mg ORAL q 6 H PRN - docusate sodium 100 mg cap(s) (COLACE) 100 mg ORAL BID . ALLERGIES Allergen Reactions - Avocado Swelling - Baclofen Other: See Comments Dizziness and full body weakness - Candasartan [Other] Rash - Chocolate Unknown - Ciprofloxacin (Bulk) Anaphylaxis - Grass Pollen Unknown - Indocin [Indomethac* Rash - Iodine Anaphylaxis - Penicillins Rash - Lima Oil Unknown - Propranolol Other: See Comments Severe low bp and kidneys shutting down. - Sulfa (Sulfonamide * Rash, Itching - Valium [Diazepam] Other: See Comments Depression REVIEW OF SYSTEMS: Constitutional: Negative for chills and fever. HENT: Negative for rhinorrhea and sore throat. Respiratory: Negative for cough and shortness of breath. Cardiovascular: Negative for chest pain and leg swelling. Gastrointestinal: Negative for abdominal pain and vomiting. Genitourinary: Negative for difficulty urinating and dysuria. Skin: Negative for pallor and rash. Neurological: Positive for dizziness and light-headedness. Negative for syncope and headaches. Objective PHYSICAL EXAM: BP 137/92 Pulse 83 Temp (Src) 97.7 (Oral) Resp 18 Ht 5' 9 (1.75m) Wt 229 lb 11.5 oz (104.2kg) SpO2 96% BMI 33.91 kg/(m2). O2 Therapy: Room Air Physical Exam Performed: Constitutional: General: He is not in acute distress. Appearance: He is well-developed. He is not diaphoretic. HENT: Head: Normocephalic and atraumatic. Nose: Nose normal. Mouth/Throat: Pharynx: No oropharyngeal exudate. Eyes: General: No scleral icterus. Right eye: No discharge. Left eye: No discharge. Conjunctiva/sclera: Conjunctivae normal. Neck: Musculoskeletal: Normal range of motion and neck supple. No muscular tenderness. Thyroid: No thyromegaly. Vascular: No JVD. Trachea: No tracheal deviation. Cardiovascular: Rate and Rhythm: Normal rate and regular rhythm. Heart sounds: No murmur. No friction rub. No gallop. Pulmonary: Effort: Pulmonary effort is normal. No respiratory distress. Breath sounds: Normal breath sounds. No wheezing or rales. Chest: Chest wall: No tenderness. Abdominal: General: There is no distension. Palpations: Abdomen is soft. Tenderness: There is no abdominal tenderness. There is no guarding or rebound. Musculoskeletal: General: Tenderness present. No deformity. Comments: Patient has tenderness to palpation of the mid shaft of the right femur, some bruising overlying that area. Patient has tenderness palpation of the right greater trochanter. Does have pain elicited with logroll of the right lower extremity. His leg is held in a shortened and externally rotated position. Skin: General: Skin is warm and dry. Capillary Refill: Capillary refill takes less than 2 seconds. Coloration: Skin is not pale. Findings: No erythema or rash. Neurological: General: No focal deficit present. Mental Status: He is alert. Sensory: No sensory deficit. Motor: No weakness. Coordination: Coordination normal. Comments: Strength 5 out of 5 in the right lower extremity and plantar flexion, dorsi flexion. Able to wiggle all toes. Unable to lift his right lower extremity off the bed secondary to pain. Able to lift his left lower showing off the bed. Dorsalis pedis pulse present in the right lower extremity. Psychiatric: Judgment: Judgment normal. Lines, Drains, and Airways Line Peripheral 10/16/192045 Short Right Antecubital 20 Gauge less than 1 day Reviewed airway and will discuss with nurse to discontinue. DATA: Diagnostic tests reviewed for today's visit: Most recent labs and imaging results. Impression/Recommendatio ns Active Problems: Preoperative medical evaluation for planned ORIF for right hip fracture. Patient at average risk for perioperative cardiovascular complications. No contraindications to surgery and primary team may proceed with surgery. Hypertension. Well-controlled. Obesity. Lifestyle modifications. Asthma. Well-controlled. Resolved Problems: * No resolved hospital problems. * VTE PROPHYLAXIS: As per primary team Disposition: To be determined Plan of care discussed with: Provider, RN, Patient SIGNATURE: Jaskaran Mcdonnell MD PATIENT NAME: Velia Bagley DATE: October 17, 2019 TIME: 1:21 AM PAGER/CONTACT #: [phone] [facility] ED NOTEon 10-17-2019 ED NOTE HNO ID: [id number] Author: Nay (Rn) BULL Hicks Service: Nursing Author Type: Registered Nurse Type: ED Notes Filed: 10/16/2019 10:33 PM Note Text: Rapid Covid-19 swab taken to discharge specialist desk to be delivered to lab. [facility] ED NOTE HNO ID: [id number] Author: Nay HarperRn) BULL Hicks Service: Nursing Author Type: Registered Nurse Type: ED Notes Filed: 10/16/2019 10:33 PM Note Text: Type and Screen sent to lab. [facility] ED PROV NOTEon 10-17-2019 ED PROV NOTE HNO ID: [id number] Author: Tisha Peña MD Service: Emergency Medicine Author Type: Physician Type: ED Provider Notes Filed: 10/16/2019 11:45 PM Note Text: Attending Note I evaluated the patient and personally participated in the antonio components. I agree with the resident's findings and plan as documented except where my note differs, and I discussed the case and management of the patient's care with the resident. Patient was feeling dizzy getting into his car when he fell injured his right hip. Presents by EMS. No numbness in his foot and no weakness in his foot or ankle. Denies any other injuries such as to his chest head neck or back. No upper extremity injury. No loss of consciousness. He is not taking anticoagulants. Exam Semirecumbent bed nontoxic no distress. Head was atraumatic. Pupils equal round reactive to light. Normal pcnsso-rb-[id number]. Oropharynx pink moist clear. Heart regular rate rhythm without murmurs rubs gallops. Lungs clear to auscultation without wheeze rhonchi crackles. He does have a small contusion on his right lower abdomen but it is not tender. He has no cervical thoracic or lumbar sacral spine tenderness. He is alert and oriented x3. The right hip is tender and is externally rotated and shortened. Intact distal pulse motor and sensory also intact. His other 3 extremities have good range of motion are atraumatic without motor or sensory or pulse deficit. Dr. Hadley discussed patient with orthopedics. Patient qualified for fascia iliaca block. He was consented and Dr. Keith and I performed the procedure together. I help with the aspiration and injection while she localized with the needle. Patient did have some initial symptoms of dizziness which triggered the fall but has no dysrhythmia or signs of ischemia on ECG. No cp or sob. He remarks that he had not been drinking many fluids today. Normal VS. Tisha Peña MD 10/16/19 [id number] [facility] HISTORY PHYSICALon 0 HISTORY PHYSICAL HNO ID: [id number] Author: Hiral De Santiago Service: Orthopaedic Surgery Author Type: Physician Type: HANDP Filed: 10/17/2019 7:41 AM Note Text: I evaluated the patient and personally participated in the antonio components. I agree with the resident's findings and plan with the following revisions and/or additions: Has a Garden III hip fracture. Multiple comorbidites and ambulation limitations due to Left TIA, essential tremor and bilateral knee arthritis. Uses cane at baseline. Will plan for attempted ORIF , possible prosthetic replacement. Risks, benefits and expected recovery of each procedure explained. All questions answered to his apparent satisfaction and agrees to proceed. Consent obtained. Also, has a history of DVT. Was on Eliquis but stopped due to reaction . Has been maintained on BID ASA. Will consult hematology for recommendations. Signature: Hiral Castaneda MD Service Date: 10/17/2019 Service Time: 7:37 AM ORTHOPAEDIC SURGERY HANDP Pt: VELIA BAGLEY Date of admssion: 10/16/2019 Admitting Physician: Dr. Siegel Chief Complaint: R hip pain HPI: 59 year old male with hx of HTN, TIA with residual R leg weakness and asthma presenting today with R hip pain after a fall while getting into his daughters car earlier this evening. Patient reports he just lost his balance and fell landing on his right side. The right sided hip pain with inability to ambulate so he presented to the ED for evaluation. Imaging revealed a right hip fracture so orthopedics was consulted. Patient complains of right-sided hip pain without any numbness or tingling to the right lower extremity. He denies any other injuries from the incident with the exception of a superficial abrasion to his right forearm. Patient ambulates with a cane at baseline due to residual weakness from a TIA he suffered from a few years ago. He is relatively active at home and is fully functional with his ADLs. Denies head trauma or LOC. Denies further complaints. PAST MEDICAL HISTORY Diagnosis Date - Carpal tunnel syndrome, bilateral - Essential tremor - GERD (gastroesophageal reflux disease) - History of lumbar laminectomy - HTN (hypertension) - Lumbar spinal stenosis - Migraines - Osteoarthritis - Severe persistent asthma - TIA (transient ischemic attack) - UTI (urinary tract infection) PAST SURGICAL HISTORY Procedure Laterality Date - LAMINECTOMY,LUMBAR 03/2016 L4-L5 - PAST SURGICAL HISTORY OF x 16 surgeries surgery to repair bone in knee cap and multiple arthroscopies and debridements - PAST SURGICAL HISTORY OF 2018 bronchoscopy Allergies: Avocado; Baclofen; Candasartan [Other]; Cat Dander; Chocolate; Ciprofloxacin (Bulk); Grass Pollen; Indocin [Indomethacin Sodium]; Iodine; Penicillins; Lima Oil; Propranolol; Sulfa (Sulfonamide Antibiotics); Valium [Diazepam] No current facility-administered medications for this encounter. Current Outpatient Medications Medication Sig - tamsulosin ER (FLOMAX) 0.4 mg cap TAKE 2 CAPSULES BY MOUTH EVERY DAY - nitrofurantoin monohydrate and macrocrystal (MACROBID) 100 mg capsule TAKE 1 CAPSULE BY MOUTH EVERY DAY - Catheter (GUTHRIE CATHETER) 14 Fr misc Self catheterize 3 times daily. - primidone (MYSOLINE) 50 mg tablet Take 250 mg by mouth daily at bedtime. - amitriptyline (ELAVIL) 100 mg tablet - atorvastatin (LIPITOR) 20 mg tablet - FASENRA 30 mg/mL injection - budesonide-formoterol (SYMBICORT) 160-4.5 mcg/actuation inhaler Inhale as instructed. - BREO ELLIPTA 200-25 mcg/dose inhaler - gabapentin (NEURONTIN) 300 mg capsule - HYDROcodone-acetaminophe n (NORCO) 5-325 mg per tablet - losartan (COZAAR) 100 mg tablet - rizatriptan (MAXALT) 10 mg tablet Take 10 mg by mouth. - topiramate (TOPAMAX) 200 mg tablet - NASAL ALLERGY 55 mcg nasal inhaler - fluticasone (FLONASE) 50 mcg/actuation nasal spray Use 2 Sprays in each nostril once daily. - FLUoxetine HCl (PROZAC) 40 mg capsule Take 20 mg by mouth daily at bedtime. - aspirin, enteric coated (ADULT LOW DOSE ASPIRIN) 81 mg EC tablet Take 1 tablet by mouth once daily. - Ranitidine HCl (ZANTAC) 300 mg tablet Take 1 tablet by mouth twice daily. - omeprazole (PRILOSEC) 20 mg capsule Take 1 capsule by mouth daily before dinner. 30 MINUTES BEFORE DINNER. - Dihydroergotamine Mesylate (MIGRANAL) 0.5 mg/pump act. (4 mg/mL) nasal spray Use 1 [place] in the nose as needed. Use in one nostril as directed. No more than 4 sprays in one hour (Patient not taking: Reported on 05/17/2018 ) - levalbuterol (XOPENEX) 1.25 mg/3 mL nebulizer solution Use 1 Ampule via nebulizer every 4 hours as needed. - umeclidinium (INCRUSE ELLIPTA) 62.5 mcg/actuation inhaler Inhale 1 Puff as instructed once daily. - montelukast (SINGULAIR) 10 mg tablet Take 10 mg by mouth daily at bedtime. - potassium chloride ER (K-DUR, KLOR-CON) 20 mEq tablet Take 20 mEq by mouth four times daily. - tamsulosin ER (FLOMAX) 0.4 mg cp24 Take 0.8 mg by mouth. - spironolactone (ALDACTONE) 25 mg tablet Take 25 mg by mouth once daily. - celecoxib (CELEBREX) 200 mg capsule Take 200 mg by mouth four times daily. - ALBUTEROL SULFATE (PROAIR HFA INHALATION) Inhale 2 Puffs as instructed. Prn SOB - tiZANidine 4 mg tablet Take 8 mg by mouth daily at bedtime. - topiramate (TOPAMAX) 100 mg tablet 2 in am, 1 at noon, 1 at evening and 2 at bedtime (600 mg/day total) (Patient taking differently: 100 mg. 2 in am, 1 at noon, 2 at evening and 1 at bedtime (600 mg/day total)) FH: Non-contributory. Negative for any bleeding or clotting disorders. Social Hx: Denies tobacco, alcohol illicit drug abuse. Ambulate with a cane at baseline. ROS: 10 pt ROS neg except in HPI O: Vitals: BP 117/77 Pulse 78 Temp 36.6 ?C (97.8 ?F) (Oral) Resp 18 Ht 175.3 cm (5' 9 ) Wt 103.9 kg (229 lb) SpO2 97% BMI 33.82 kg/m? Labs: Recent Labs 10/16/19 2043 NA 141 K see below CHLOR 110* CO2 21* BUN 16 CREAT 0.94 GLUC 104* ANION 10 CA 8.6 WBC 5.28 HB 13.5* HCT 41.4 PLT 196 INR 0.98 Physical exam: General: AANDO x 3; NAD. Cooperative throughout entire interview Head: Atraumatic Neck: supple Cards: RRR Lungs: Non-labored breathing Abdomen: S/nt/nd Neuro: Grossly intact Extremities: Evaluation of right lower extremity - shortened and externally rotated leg. No open wound, lacerations, abrasions or areas of ecchymosis. Non-tender over foot, heel, ankle, leg, knee, distal thigh. Negative logroll and no tenderness with axial loading. SILT S/S/SP/DP/T. Motor intact DF/PF/EHL. DP and PT pulses palpable, foot warm with brisk capillary refill. Compartments soft, compressible. Tolerates passive stretch of digits. Imaging: Multiple views of right hip reviewed and demonstrate a completely displaced femoral neck fracture. Joint space is well-maintained. No bony lesions or cortical erosions noted. A/P: 59 year old male with right femoral neck fracture Plan: - Admitted to orthopedics - Orthopedic intervention: Patient has a right-sided displaced femoral neck fracture. Plan for OR tomorrow for total hip arthroplasty - Consult [facility] for perioperative optimization, medical management - WB status: Nonweightbearing right lower extremity - Diet: IVF/NPO at midnight (0001, 10/17/2019), may have regular diet until then - Pain control - Ice right hip - PT/OT: After surgery - Labs: TANDS, CBC, CMP, iNR/PT - DVT prophylaxis: Will hold chemoprophylaxis until after surgery - Fragility fracture - osteoporosis consult and Vit D - Discussed with Dr. Siegel who agrees with plan Jayant Srivastava MD 10:35 PM October 16, 2019 [facility] NURSING PROGon 10-17-2019 NURSING PROG HNO ID: [id number] Author: Jo (Rn) BULL Onofre Service: ? Author Type: Registered Nurse Type: Nursing Progress Note Filed: 10/17/2019 5:34 PM Note Text: Dr. Yun Fernando in room doing fascia illiaca block on the right side. Normal [facility] OBSOLETEon 10-17-2019 OBSOLETE Refill (AKPRAD) -------- VELIA BAGLEY ([id number]) 1960 M [facility] Date Time Provider Department 10/17/19 PAYAL BARAJAS (METALLOGRAPHIC TECHNICIAN) DAVIDE During your visit today, we recorded the following information about you: Allergies As of Date: 10/17/2019 Noted Allergy Reaction AVOCADO 04/26/2018 7 - Swelling BACLOFEN 02/19/2018 14 - Other: See Comments Comments: Dizziness and full body weakness Candasartan [Other] 08/19/2007 2 - Rash CHOCOLATE 05/17/2018 16 - Unknown CIPROFLOXACIN (BULK) 06/10/2016 10 - Anaphylaxis GRASS POLLEN 04/26/2018 16 - Unknown INDOCIN (INDOMETHACIN SODIUM) 07/24/2006 2 - Rash IODINE 07/24/2006 10 - Anaphylaxis PENICILLINS 07/24/2006 2 - Rash PINE OIL 04/26/2018 16 - Unknown PROPRANOLOL 14 - Other: See Comments Comments: Severe low bp and kidneys shutting down. SULFA (SULFONAMIDE ANTIBIOTICS) 09/02/2017 2 - Rash 9 - Itching VALIUM (DIAZEPAM) 06/15/2017 14 - Other: See Comments Comments: Depression Date Reviewed: 10/17/2019 Reviewed by: Meka HarperRn) BULL Barajas - Fully Assessed Reason for Visit: Refill Request [94] Prescriptions as of 10/17/2019 Sig: AMLODIPINE 5 MG TABLET Take 5 mg by mouth once daily. CLONIDINE HCL 0.1 MG TABLET Take 0.1 mg by mouth twice da* INCRUSE ELLIPTA 62.5 MCG/ACTU* Inhale 1 Puff as instructed o* TAMSULOSIN 0.4 MG CAPSULE TAKE 2 CAPSULES BY MOUTH EVER* Patient taking differently: 0.4 mg twice daily. NITROFURANTOIN MONOHYDRATE AND * TAKE 1 CAPSULE BY MOUTH EVERY* PRIMIDONE 50 MG TABLET Take 250 mg by mouth daily at* AMITRIPTYLINE 100 MG TABLET Take 50 mg by mouth daily at * ATORVASTATIN 20 MG TABLET Take 40 mg by mouth once lamont* FASENRA 30 MG/ML SUBCUTANEOUS* Inject 30 mg subcutaneously e* BUDESONIDE-FORMOTEROL HFA 160* Inhale 2 Puffs as instructed * GABAPENTIN 300 MG CAPSULE Take 800 mg by mouth four nani* LOSARTAN 100 MG TABLET Take 100 mg by mouth once kalyan* RIZATRIPTAN 10 MG TABLET Take 10 mg by mouth as needed* NASAL ALLERGY 55 MCG SPRAY AE* FLUTICASONE PROPIONATE 50 MCG* Use 2 Sprays in each nostril * OMEPRAZOLE 20 MG CAPSULE,TUCKER* Take 1 capsule by mouth daily* Patient taking differently: Take 20 mg by mouth twice kalyan* MONTELUKAST 10 MG TABLET Take 10 mg by mouth daily at * POTASSIUM CHLORIDE ER 20 MEQ * Take 20 mEq by mouth four nani* SPIRONOLACTONE 25 MG TABLET Take 25 mg by mouth once lamont* CELECOXIB 200 MG CAPSULE Take 200 mg by mouth four nani* PROAIR HFA INHALATION Inhale 2 Puffs as instructed.* TOPIRAMATE 100 MG TABLET 2 in am, 1 at noon, 1 at even* Patient taking differently: 100 mg. 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 Closed displaced fracture of right femoral neck*10/16/2019 Encounter Status:Closed by PAYAL BARAJAS CNP on 10/17/19 [facility] OPERATIVE NOon 10-17-2019 OPERATIVE NO HNO ID: [id number] Author: Hiral Castaneda Service: Orthopaedic Surgery Author Type: Physician Type: Operative Report Filed: 10/17/2019 5:50 PM Note Text: OPERATIVE REPORT LOG ID: [id number] Surgery/Procedure Date: 10/17/2019 Incision/Procedure Start Time: 4:15 PM Incision Close/Procedure End Time: 5:00 PM Surgeon(s)/Proceduralist (s) and Silk Brusher(s): Surgeon(s) and Role: * Hiral Castaneda - Primary * Sally De Leon - Resident - Assisting * Elizabeth Ferro - Resident - Assisting * Jarret (Don Benitez - Resident - Assisting No Additional Staff Procedure(s): Procedure(s) (LRB): IMPLANT SCREW CANNULATED HIP WITH C-ARM (Right) Anesthesia: General Implants: We used the Synthes 7.3 cannulated screw set Clinical note: This 51-year-old gentleman with a number of comorbidities sustained a mechanical fall with a Garden 3 right hip fracture. Procedure Details: The patient was brought to the operative theater where general endotracheal anesthesia was administered while he was in his own bed. The patient was then carefully moved to the fracture table with control of his right leg. He was positioned into the leg yan on the fracture table carefully. Pressure points were well-padded. His right hip was then identified as appropriate timeout. Following the timeout utilizing the image intensifier we performed a gentle closed reduction of his right hip. Minimal traction and internal rotation reduced his fracture virtually anatomically. The hip was then prepped and draped in sterile orthopedic fashion. A straight lateral 4 cm incision was made beginning at the flare of the trochanter. Sharp dissection was carried out down to the IT band which was incised. The lateralis muscle was incised. Utilizing the image intensifier guide pins were placed across the femoral neck and head in appropriate positioning in both the AP and lateral planes creating an inverted triangle. The pins were measured. The lateral cortex was drilled and the 7.3 cannulated screws were placed appropriately. Traction was released during final compression of the screws with good purchase being achieved. Final position of the fracture and hardware were checked with the image intensifier utilizing a Kirklin technique firming proper placement hardware and reduction of the hip. . A check made for hemostasis. The fascia vastus lateralis was closed with 0 Vicryl interrupted sutures. Fascia jacob was closed with a running 0 Vicryl. Subcutaneous tissues were closed with 2-0 Vicryl and Monocryl for skin. Steri-Strips were applied followed by an Aquacel waterproof bandage. The patient was then awakened and transferred to the recovery room in satisfactory condition having told the procedure well. Vancomycin and clindamycin were given intravenously for antibiotic prophylaxis. Tranxene because was given for hemostasis. Pre-Op/Pre-Procedure Diagnosis: Garden III hip fracture Post-Op/Post-Procedure Diagnosis: Same Estimated Blood Loss: 50 mls Specimens: None Implant: Implant Name Type Inv. Item Serial No. Animal Care Provider Lot No. LRB No. Used Action BIT 5MM LARGE 300MM 2.9MM DRILL LARGE QUICK COUPLING CANNULATED NONSTERILE - [id number] Bit BIT 5MM LARGE 300MM 2.9MM DRILL LARGE QUICK COUPLING CANNULATED NONSTERILE [facility] 1 SCREW 7.3MM 8.2MM 4MM PARTIAL THREAD STAINLESS STEEL 90MM 32MM BONE - [id number] Screw SCREW 7.3MM 8.2MM 4MM PARTIAL THREAD STAINLESS STEEL 90MM 32MM BONE [employer] [place] Right 1 Implanted SCREW 7.3MM 8.2MM 4MM PARTIAL THREAD STAINLESS STEEL 85MM 32MM BONE - [id number] Screw SCREW 7.3MM 8.2MM 4MM PARTIAL THREAD STAINLESS STEEL 85MM 32MM BONE SYNTHES TRAUMA Right 1 Implanted SCREW 7.3MM STAINLESS STEEL 90MM 16MM BONE CANNULATED NONSTERILE CANNULATED - [id number] Screw SCREW 7.3MM STAINLESS STEEL 90MM 16MM BONE CANNULATED NONSTERILE CANNULATED [employer] [place] Right 1 Implanted GUIDEWIRE 2.8MM STAINLESS STEEL 300MM ORTHOPEDIC TROCAR THREAD 7.3MM - [id number] Wire GUIDEWIRE 2.8MM STAINLESS STEEL 300MM ORTHOPEDIC TROCAR THREAD 7.3MM [employer] [place] Right 4 Implanted Complications: None, patient tolerated procedure well. Participation in Procedure: I/primary surgeon/proceduralist performed the procedure with assistance. SIGNATURE: Hiral Castaneda MD PATIENT NAME: Velia Bagley DATE: October 17, 2019 TIME: 5:44 PM PAGER/CONTACT #: [facility] PROGRESSon 10-17-2019 PROGRESS HNO ID: [id number] Author: Jayant Srivastava MD Service: Orthopaedic Surgery Author Type: Resident Type: Progress Notes Filed: 10/17/2019 6:31 AM Note Text: ORTHOPAEDIC SURGERY DAILY PROGRESS NOTE Patient Name: Velia Bagley Date of Evaluation: 10/17/2019 Admission Date: 10/16/2019 Time of Evaluation: 6:17 AM A/P: 59 year old male with right femoral neck fracture ? Plan: - Admitted to orthopedics - Orthopedic intervention: Patient has a right-sided displaced femoral neck fracture. Plan for OR todayfor total hip arthroplasty - Consult [facility] for perioperative optimization, medical management - WB status: Nonweightbearing right lower extremity - Diet: NPO now - Pain control - Ice right hip - PT/OT: After surgery - Labs: TANDS, CBC, CMP, iNR/PT - DVT prophylaxis: Will hold chemoprophylaxis until after surgery - Fragility fracture - osteoporosis consult and Vit D INTERVAL HPI: Patient monitored, no new events overnight. Pt reports controlled pain. Denies fevers/chills. Denies numbness/tingling. OBJECTIVE: BP 102/54 Pulse 60 Temp 36.7 ?C (98 ?F) (Oral) Resp 18 Ht 175.3 cm (5' 9 ) Wt 104.2 kg (229 lb 11.5 oz) SpO2 95% BMI 33.92 kg/m? Intake/Output Summary (Last 24 hours) No intake/output data recorded. Exam: General: NAD, AAOx3 Extremities: Evaluation of right lower extremity - shortened and externally rotated leg. No open wound, lacerations, abrasions or areas of ecchymosis. Non-tender over foot, heel, ankle, leg, knee, distal thigh. Negative logroll and no tenderness with axial loading. SILT S/S/SP/DP/T. Motor intact DF/PF/EHL. DP and PT pulses palpable, foot warm with brisk capillary refill. Compartments soft, compressible. Tolerates passive stretch of digits. Labs: BMP: Sodium 141 10/16/2019 Potassium see below 10/16/2019 Chloride 110 10/16/2019 CO2 21 10/16/2019 BUN 16 10/16/2019 Creatinine, Whole Blood (iSTAT) 0.94 10/16/2019 Glucose 104 10/16/2019 CBC: WBC 5.28 10/16/2019 Hemoglobin 13.5 10/16/2019 Hematocrit 41.4 10/16/2019 Platelet Count 196 10/16/2019 COAGS: APTT 23.2 10/16/2019 PT INR 0.98 10/16/2019 Jayant Srivastava MD Resident, Orthopaedic Surgery Pager: [phone] 10/17/2019 6:17 AM [facility] PT EDon 10-17-2019 PT ED HNO ID: [id number] Author: Meka (Rn) BULL Barajas Service: ? Author Type: Registered Nurse Type: Patient Education Filed: 10/17/2019 12:04 PM Note Text: PRE OP LEARNING ASSESSMENT READINESS TO LEARN COGNITIVE ABILITY: Alert and oriented MOTIVATION TO LEARN: Eager FAMILY SUPPORT: High - Very involved in pt care PATIENT LEARNS BEST BY: Multiple Methods FACTORS AFFECTING LEARNING: None PHYSICAL LIMITATIONS AFFECTING LEARNING: None Electronically Signed By: Meka Barajas RN In Department: [place] SURGERY OR Normal [facility] TRINIDAD Fraser 19on 10-17-2019 Rapid, COVID 19 Negative Normal Negative [facility] [place] Comment on above: Result Comment: This test has been authorized by the FDA under an Emergency Use Authorization (EUA). Performed By: #### R COVD #### [facility] [address] [place] [address] Type and Screenon 10-17-2019 ABO group Nom (Bld) O Normal [facility] Comment on above: Performed By: #### R COVD #### [place] [address] Comment See Below Normal [facility] Comment on above: Result Comment: Scre en &/or Xmatch expires in 3 days at 12 midnight. Redraw patient at that time. Performed By: #### R COVD #### [place] [address] RH Type Positive Normal [facility] Comment on above: Performed By: #### R COVD #### [place] [address] Urinalysis, reflexon 020 Reflex Comment see below Normal [facility] Comment on above: Result Comment: Refl ex to culture is not indicated based on established laboratory criteria. Performed By: #### U RIN2 #### [place] [address] Bacteria LM.HPF (Urine sed) [#/Area] NONE Normal None [facility] Comment on above: Performed By: #### U RIN2 #### [place] [address] Ep Cells Urine 0.3 /hpf Normal 0.0-5.0 [facility] Comment on above: Performed By: #### U RIN2 #### [place] [address] Hyaline Cast 0.3 /lpf Normal 0.0-1.0 [facility] Comment on above: Performed By: #### U RIN2 #### [place] [address] RBC LM.HPF (Urine sed) [#/Area] 0.1 /[HPF] Normal 0.0-5.0 [facility] Comment on above: Performed By: #### U RIN2 #### [facility] [address] [place] [address] WBC, reflex 1.10 /hpf Normal 0.00-5.00 [facility] Comment on above: Performed By: #### U RIN2 #### [facility] [address] [place] [address] Appearance (U) CLEAR Normal [facility] Comment on above: Performed By: #### U RIN2 #### [facility] [address] [place] [address] Bilirubin (U) [Mass/Vol] Negative Normal Negative [facility] Comment on above: Performed By: #### U RIN2 #### [place] [address] Color (U) YELLOW Normal [facility] Comment on above: Performed By: #### U RIN2 #### [facility] [address] [place] [address] Glucose Ql (U) Negative Normal Negative [facility] Comment on above: Performed By: #### U RIN2 #### [place] [address] Hemoglobin,Urine Negative Normal Negative [facility] Comment on above: Performed By: #### U RIN2 #### [place] [address] Ketone Urine Negative Normal Negative [facility] Comment on above: Performed By: #### U RIN2 #### [place] [address] Leukocyte esterase Test strip Ql (U) Negative Normal Negative [facility] Comment on above: Performed By: #### U RIN2 #### [place] [address] Nitrite reflex Negative Normal Negative [facility] Comment on above: Performed By: #### U RIN2 #### [place] [address] pH (U) 6.5 [pH] Normal 5.0-8.0 [facility] Comment on above: Performed By: #### U RIN2 #### [facility] [address] [place], [place] [address] Protein (U) [Mass/Vol] Negative Normal Negative [facility] Comment on above: Performed By: #### U RIN2 #### [facility] [address] [place], [place] [address] Specific [place], Ur 1.015 Normal 1.005-1.030 [facility] Comment on above: Performed By: #### U RIN2 #### [facility] [address] [place], [place] [address] Urobilinogen,Ur 1.0 EU/dL Normal 0.2-1.0 [facility] [place] Comment on above: Performed By: #### U RIN2 #### [facility] [address] [place], [place] [address] XR HIP 2V AP/LAT RTon 2019 XR HIP 2V AP/LAT RT * * *Final Report* * * DATE OF EXAM: Oct 17 2019 5:04PM [id number] - XR HIP 2V AP/LAT RT / PROCEDURE REASON: RIGHT HIP PINNING * * * * Physician Interpretation * * * * HISTORY: Post-operative / post-procedure assessment, asymptomatic COMPARISON: 10/16/2019. HISTORY: Post-operative / post-procedure assessment, asymptomatic COMPARISON: None. TECHNIQUE: Fluoroscopy of right hip. RESULT: This dictation is to document fluoroscopy. Fluoroscopy time is 1 minute 30 seconds. The cumulative dose is 46.8 mGy. Intraoperative spot films include films surgical instrumentation and 3 cannulated middle screws transfixing the right femoral head/neck. For further details please see the referring physician's notes. AP single view pelvis: Post cervical changes are noted status post capital ORIF of the right hip fracture. 3 cannulated middle screws transfix the right femoral head and neck with approximate anatomic alignment. No evidence of dislocation. The remaining osseous pelvis and left hip appear intact.. IMPRESSION: Status post capital ORIF of the right femoral neck fracture. Criminalist Technician: PSCB Transcribe Date/Time: Oct 17 2019 5:59P Dictated by : RICH BORJAS MD This examination was interpreted and the report reviewed and electronically signed by: RICH BORJAS MD on Oct 17 2019 6:06PM EST Normal [facility] XR PELVIS 1V APon 10-17-2019 XR PELVIS 1V AP * * *Final Report* * * DATE OF EXAM: Oct 17 2019 5:24PM [id number] - XR PELVIS 1V AP / PROCEDURE REASON: Post-operative / post-procedure assessment, asymptomatic * * * * Physician Interpretation * * * * HISTORY: Post-operative / post-procedure assessment, asymptomatic COMPARISON: 10/16/2019. HISTORY: Post-operative / post-procedure assessment, asymptomatic COMPARISON: None. TECHNIQUE: Fluoroscopy of right hip. RESULT: This dictation is to document fluoroscopy. Fluoroscopy time is 1 minute 30 seconds. The cumulative dose is 46.8 mGy. Intraoperative spot films include films surgical instrumentation and 3 cannulated middle screws transfixing the right femoral head/neck. For further details please see the referring physician's notes. AP single view pelvis: Post cervical changes are noted status post capital ORIF of the right hip fracture. 3 cannulated middle screws transfix the right femoral head and neck with approximate anatomic alignment. No evidence of dislocation. The remaining osseous pelvis and left hip appear intact.. IMPRESSION: Status post capital ORIF of the right femoral neck fracture. Criminalist Technician: PSCB Transcribe Date/Time: Oct 17 2019 5:59P Dictated by : RICH BORJAS MD This examination was interpreted and the report reviewed and electronically signed by: RICH BORJAS MD on Oct 17 2019 6:06PM EST Normal [facility] Activated PTTon 10-16-2019 aPTT Coag (Bld) [Time] 23.2 s Normal 23.0-32.4 [facility] Comment on above: Result Comment: Unfr actionated Heparin Therapeutic Ranges: Standard Heparin Nomogram: 53 to 78 seconds (anti-Xa level of 0.3 to 0.7 U/mL) Low Dose/ACS Nomogram: 49 to 67 seconds (anti-Xa level of 0.2 to 0.5 U/mL) Stroke Treatment Nomogram: 49 to 67 seconds (anti-Xa level of 0.2 to 0.5 U/mL) Note: The APTT therapeutic range has been determined for the current lot of laboratory APTT reagent in use throughout the [facility]. Performed By: #### A PTT #### [facility] [address] [place], [place] [address] Basic Metabolic Panelon 10-02 Anion gap [Moles/Vol] 10 mmol/L Normal 9-18 [facility] Comment on above: Performed By: #### U RIN2 #### [facility] [address] [place], [place] [address] Calcium [Mass/Vol] 8.6 mg/dL Normal 8.5-10.2 [facility] Comment on above: Performed By: #### U RIN2 #### [facility] [address] [place], [place] [address] Chloride [Moles/Vol] 110 mmol/L High 97-105 [facility] Comment on above: Performed By: #### U RIN2 #### [facility] [address] [place], [place] [address] CO2 Blood 21 mmol/L Low 22-30 [facility] Comment on above: Performed By: #### U RIN2 #### [facility] [address] [place], [place] [address] Creatinine [Mass/Vol] 0.94 mg/dL Normal 0.73-1.22 [facility] Comment on above: Performed By: #### U RIN2 #### [facility] [address] [place], [place] [address] Glucose [Mass/Vol] 104 mg/dL High 74-99 [facility] Comment on above: Result Comment: The [place] [employer] (ADA) provides guidance for cutoff values for fasting glucose and random glucose. The ADA defines fasting as no caloric intake for at least 8 hours.Fasting plasma glucose results between 100 to 125 mg/dL indicate increased risk for diabetes (prediabetes). Fasting plasma glucose results greater than or equal to 126 mg/dL meet the criteria for diagnosis of diabetes. In the absence of unequivocal hyperglycemia, results should be confirmed by repeat testing. In a patient with classic symptoms of hyperglycemia or hyperglycemic crisis, random plasma glucose results greater than or equal to 200 mg/dL meet the criteria for diagnosis of diabetes. Reference: Standards of Medical Care in Diabetes 2016; [employer]. Diabetes Care. 2016;39(Suppl 1). Performed By: #### U RIN2 #### [facility] [address] [place], [place] [address] Potassium [Moles/Vol] see below Normal 3.7-5.1 [facility] Comment on above: Result Comment: Unab le to assay. Specimen Hemolyzed Performed By: #### U RIN2 #### [facility] [address] [place], [place] [address] Sodium [Moles/Vol] 141 mmol/L Normal 136-144 [facility] Comment on above: Performed By: #### U RIN2 #### [facility] [address] [place], [place] [address] Urea nitrogen [Mass/Vol] 16 mg/dL Normal 9-24 [facility] Comment on above: Performed By: #### U RIN2 #### [facility] [address] [place], [place] [address] ED NOTEon 10-16-2019 ED NOTE HNO ID: [id number] Author: aNy (Rn) BULL Alvarado Service: ? Author Type: Registered Nurse Type: ED Notes Filed: 10/16/2019 8:07 PM Note Text: Bed: 16-ED Expected date: Expected time: Means of arrival: Comments: Med 2, fall Normal [facility] ED PROV NOTEon 10-16-2019 ED PROV NOTE HNO ID: [id number] Author: Tisha Peña MD Service: Emergency Medicine Author Type: Physician Type: ED Provider Notes Filed: 10/21/2019 5:21 PM Note Text: ED Provider Note Patient Name: Velia Bagley SERVICE DATE: 10/16/19 History Patient presents with: Fall: Pt arrived at ER after falling getting into Auto. Pt reports right Hip and leg pain. Pt reports no LOC, Neck, or Head Pain. HPI 59-year-old male past medical history of migraines, essential tremor, hypertension, GERD, prior stroke with left lower extremity residual weakness presents to the emergency department for concerns of a fall and right lower extremity pain. Patient was climbing into a vehicle when he's got slightly lightheaded and then fell on his left side. He states he did not hit his head, no LOC. Was unable to get up afterwards even with assistance from his daughter. Complains of excruciating pain in his right hip and right thigh. Denies any new numbness, tingling or weakness. Denies any chest pain or shortness of breath. States that the lightheadedness and dizziness he is having has resolved. PAST MEDICAL HISTORY Diagnosis Date - Carpal tunnel syndrome, bilateral - Essential tremor - GERD (gastroesophageal reflux disease) - History of lumbar laminectomy - HTN (hypertension) - Lumbar spinal stenosis - Migraines - Osteoarthritis - Severe persistent asthma - TIA (transient ischemic attack) - UTI (urinary tract infection) PAST SURGICAL HISTORY Procedure Laterality Date - LAMINECTOMY,LUMBAR 03/2016 L4-L5 - PAST SURGICAL HISTORY OF x 16 surgeries surgery to repair bone in knee cap and multiple arthroscopies and debridements - PAST SURGICAL HISTORY OF 2018 bronchoscopy FAMILY HISTORY Problem Relation Age of Onset - Emphysema Mother - Blood Clots Mother required IVC filter. Multiple blood clots before (3-4). - Hypertension Mother - Heart Failure Father 72 of CHF. 2 OR before that - Parkinson?s Disease Father 68 - Prostate Cancer Brother - Parkinson?s Disease Paternal Grandfather - Diabetes No Family History Social History Tobacco Use - Smoking status: Never Smoker - Smokeless tobacco: Never Used - Tobacco comment: second hand smoke from father. Substance and Sexual Activity - Alcohol use: No - Drug use: No - Sexual activity: Not Currently ALLERGIES Allergen Reactions - Avocado Swelling - Baclofen Other: See Comments Dizziness and full body weakness - Candasartan [Other] Rash - Chocolate Unknown - Ciprofloxacin (Bulk) Anaphylaxis - Grass Pollen Unknown - Indocin [Indomethac* Rash - Iodine Anaphylaxis - Penicillins Rash - Lima Oil Unknown - Propranolol Other: See Comments Severe low bp and kidneys shutting down. - Sulfa (Sulfonamide * Rash, Itching - Valium [Diazepam] Other: See Comments Depression Review of Systems Constitutional: Negative for chills and fever. HENT: Negative for rhinorrhea and sore throat. Respiratory: Negative for cough and shortness of breath. Cardiovascular: Negative for chest pain and leg swelling. Gastrointestinal: Negative for abdominal pain and vomiting. Genitourinary: Negative for difficulty urinating and dysuria. Skin: Negative for pallor and rash. Neurological: Positive for dizziness and light-headedness. Negative for syncope and headaches. Physical Exam BP 137/92 Pulse 83 Temp (Src) 97.7 (Oral) Resp 18 Ht 5' 9 (1.75m) Wt 229 lb 11.5 oz (104.2kg) SpO2 96% BMI 33.91 kg/(m2). O2 Therapy: Room Air Physical Exam Vitals signs and nursing note reviewed. Constitutional: General: He is not in acute distress. Appearance: He is well-developed. He is not diaphoretic. HENT: Head: Normocephalic and atraumatic. Nose: Nose normal. Mouth/Throat: Pharynx: No oropharyngeal exudate. Eyes: General: No scleral icterus. Right eye: No discharge. Left eye: No discharge. Conjunctiva/sclera: Conjunctivae normal. Neck: Musculoskeletal: Normal range of motion and neck supple. No muscular tenderness. Thyroid: No thyromegaly. Vascular: No JVD. Trachea: No tracheal deviation. Cardiovascular: Rate and Rhythm: Normal rate and regular rhythm. Heart sounds: No murmur. No friction rub. No gallop. Pulmonary: Effort: Pulmonary effort is normal. No respiratory distress. Breath sounds: Normal breath sounds. No wheezing or rales. Chest: Chest wall: No tenderness. Abdominal: General: There is no distension. Palpations: Abdomen is soft. Tenderness: There is no abdominal tenderness. There is no guarding or rebound. Musculoskeletal: General: Tenderness present. No deformity. Comments: Patient has tenderness to palpation of the mid shaft of the right femur, some bruising overlying that area. Patient has tenderness palpation of the right greater trochanter. Does have pain elicited with logroll of the right lower extremity. His leg is held in a shortened and externally rotated position. Skin: General: Skin is warm and dry. Capillary Refill: Capillary refill takes less than 2 seconds. Coloration: Skin is not pale. Findings: No erythema or rash. Neurological: General: No focal deficit present. Mental Status: He is alert. Sensory: No sensory deficit. Motor: No weakness. Coordination: Coordination normal. Comments: Strength 5 out of 5 in the right lower extremity and plantar flexion, dorsi flexion. Able to wiggle all toes. Unable to lift his right lower extremity off the bed secondary to pain. Able to lift his left lower showing off the bed. Dorsalis pedis pulse present in the right lower extremity. Psychiatric: Judgment: Judgment normal. Diagnostic Testing ED Labs Ordered and Reviewed BASIC METABOLIC PANEL (AK,AV,EU,FV,HL,ANEL,MM,SP ) - Abnormal; Notable for the following components: Result Value Ref Range Chloride 110 (*) 97 - 105 mmol/L CO2 21 (*) 22 - 30 mmol/L Glucose 104 (*) 74 - 99 mg/dL All other components within normal limits CBC + AUTO DIFF (AK,AV,EU,FV,HL,ANEL,MM,SP ) - Abnormal; Notable for the following components: RBC 4.61 (*) 4.63 - 6.08 mil/cmm HGB 13.5 (*) 13.7 - 17.5 g/dL RDW 16.0 (*) 11.6 - 14.4 % RDW-SD 51.8 (*) 36.1 - 45.8 fl Immature Grans # 0.09 (*) 0.00 - 0.05 thou/cmm Abs. Eosin 0.00 (*) 0.04 - 0.54 thou/cmm All other components within normal limits PROTHROMBIN TIME / PT (AK,AV,EU,FV,HL,ANEL,MM,SP ) ACTIVATED PTT (AK,AV,EU,FV,HL,ANEL,MM,SP ) MDRD GFR XR PELVIS 1V AP Final Result IMPRESSION: Acute right femoral neck fracture in severe varus alignment. Criminalist Technician: HOLLY Transcribe Date/Time: Oct 16 2019 9:50P Dictated by : RONI MARVIN MD This examination was interpreted and the report reviewed and electronically signed by: RONI MARVIN MD on Oct 16 2019 9:53PM EST XR FEMUR GENERAL 2V AP/LAT RT Final Result IMPRESSION: Acute right femoral neck fracture in severe varus alignment. Criminalist Technician: [facility] Transcribe Date/Time: Oct 16 2019 9:50P Dictated by : RONI MARVIN MD This examination was interpreted and the report reviewed and electronically signed by: RONI MARVIN MD on Oct 16 2019 9:53PM EST Procedures ED Course / Clinical Impression ED Course as of Oct 16 102 Others' Documentation Sun Oct 16, 20195 My visualization of the xray shows right hip fracture. [EUGENE] ED Course User Index [EUGENE] Tisha Peña MD Clinical Impressions as of Oct 16 102 Closed displaced fracture of right femoral neck (HCC) MDM / Disposition / Plan MDM On my assessment concerned about a possible right hip fracture. Patient endorses no head trauma, he has a GCS of 15 and is acting appropriate here. I do not visualize any evidence of any head trauma, he has no midline neck tenderness palpation. I do not feel he needs any further imaging. Not on any anticoagulation, he states he has not been taking his aspirin. Labs obtained, largely unimpressive. X-rays positive for a right acute femoral neck fracture. Orthopedics was consult at. They will admit the patient to their service for further management. Patient was given morphine for pain. A fascia illiaca block was performed and patient tolerated the procedure. Admitted in stable condition. The patient was ADMITTED TO: Dr. Siegel. Condition at time of disposition: stable SIGNATURE: DO Aj Roger (Res) DO Jomar Resident 10/17/19 0106 Tisha Peña MD 10/21/19 2855 Normal [facility] HOSPon 10-16-2019 HOSP Patient:Velia Bagley MRN: Height:5' 9 (1.753 m) Weight:229 lb 11.5 oz (104.2 kg) Outpatient Medications as of 10/17/19: amLODIPine (NORVASC) 5 mg tablet cloNIDine HCl (CATAPRES) 0.1 mg tablet umeclidinium (INCRUSE ELLIPTA) 62.5 mcg/actuation inhaler tamsulosin ER (FLOMAX) 0.4 mg cap nitrofurantoin monohydrate and macrocrystal (MACROBID) 100 mg capsule primidone (MYSOLINE) 50 mg tablet amitriptyline (ELAVIL) 100 mg tablet atorvastatin (LIPITOR) 20 mg tablet FASENRA 30 mg/mL injection budesonide-formoterol (SYMBICORT) 160-4.5 mcg/actuation inhaler gabapentin (NEURONTIN) 300 mg capsule losartan (COZAAR) 100 mg tablet rizatriptan (MAXALT) 10 mg tablet NASAL ALLERGY 55 mcg nasal inhaler fluticasone (FLONASE) 50 mcg/actuation nasal spray omeprazole (PRILOSEC) 20 mg capsule montelukast (SINGULAIR) 10 mg tablet potassium chloride ER (K-DUR, KLOR-CON) 20 mEq tablet spironolactone (ALDACTONE) 25 mg tablet celecoxib (CELEBREX) 200 mg capsule ALBUTEROL SULFATE (PROAIR HFA INHALATION) topiramate (TOPAMAX) 100 mg tablet Admission/Clinic Administered Medications as of 10/17/19: glycopyrrolate 15.6 mcg cap(s) and device for inhalation (SEEBRI NEOHALER) SUMAtriptan 100 mg tab(s) (IMITREX) pantoprazole DR 40 mg tab(s) (PROTONIX) amitriptyline 50 mg tab(s) (ELAVIL) atorvastatin 40 mg tab(s) (LIPITOR) tamsulosin ER 0.4 mg cap(s) (FLOMAX) cloNIDine HCl 0.1 mg tab(s) (CATAPRES) amLODIPine 5 mg tab(s) (NORVASC) topiramate 200 mg tab(s) (TOPAMAX) topiramate 100 mg tab(s) (TOPAMAX) topiramate 100 mg tab(s) (TOPAMAX) gabapentin 800 mg cap(s) (NEURONTIN) acetaminophen 975 mg tab(s) (TYLENOL) vancomycin iv piggyback 1.5 g in D5W 250 mL (VANCOCIN) clindamycin iv piggyback 900 mg in D5W 50 mL (CLEOCIN) tranexamic acid 1,000 mg in NaCl 0.9% 100 mL (CYKLOKAPRON) tiZANidine 8 mg tab(s) (ZANAFLEX) spironolactone 25 mg tab(s) (ALDACTONE) celecoxib 200 mg cap(s) (CeleBREX) montelukast 10 mg tab(s) (SINGULAIR) potassium chloride ER 20 mEq tab(s) (K-DUR, KLOR-CON) aspirin, enteric coated 81 mg tab(s) losartan 100 mg tab(s) (COZAAR) primidone 250 mg tab(s) (MYSOLINE) lactated ringers infusion NaCl 0.9% 2-10 mL morphine 2 mg injection oxyCODONE IR 5 mg tab(s) (ROXICODONE) docusate sodium 100 mg cap(s) (COLACE) Problem List: Variants of migraine, not elsewhere classified, with intractable migraine, so stated, without mention of status migrainosus [G43.819] Carpal tunnel syndrome [G56.00] Cervicalgia [M54.2] Myalgia and myositis, unspecified [RXA9725] Iron deficiency anemia [D50.9] Weakness [R53.1] Lymphadenopathy [R59.1] Closed displaced fracture of right femoral neck (HCC) [S72.001A] Allergies: Avocado Baclofen Candasartan [Other] Chocolate Ciprofloxacin (Bulk) Grass Pollen Indocin [Indomethacin Sodium] Iodine Penicillins Lima Oil Propranolol Sulfa (Sulfonamide Antibiotics) Valium [Diazepam] Date Verified: 10/17/19 Lab Values Lab Value Units Date High Low POTA* see be* mmol/L 10/16/2019 5.1 3.7 KEI* 41.4 % 10/16/2019 51.0 40.1 Progress Notes (): Nay Alvarado, RN, RN 10/16/2019 8:07 PM Signed Bed: 16-ED Expected date: Expected time: Means of arrival: Comments: Med 2, fall Aj Hadley DO, 10/17/2019 1:06 AM Cosign Needed ED Provider Note Patient Name: Velia Bagley SERVICE DATE: 10/16/19 History Patient presents with: Fall: Pt arrived at ER after falling getting into Auto. Pt reports right Hip and leg pain. Pt reports no LOC, Neck, or Head Pain. HPI 59-year-old male past medical history of migraines, essential tremor, hypertension, GERD, prior stroke with left lower extremity residual weakness presents to the emergency department for concerns of a fall and right lower extremity pain. Patient was climbing into a vehicle when he's got slightly lightheaded and then fell on his left side. He states he did not hit his head, no LOC. Was unable to get up afterwards even with assistance from his daughter. Complains of excruciating pain in his right hip and right thigh. Denies any new numbness, tingling or weakness. Denies any chest pain or shortness of breath. States that the lightheadedness and dizziness he is having has resolved. PAST MEDICAL HISTORY Diagnosis Date - Carpal tunnel syndrome, bilateral - Essential tremor - GERD (gastroesophageal reflux disease) - History of lumbar laminectomy - HTN (hypertension) - Lumbar spinal stenosis - Migraines - Osteoarthritis - Severe persistent asthma - TIA (transient ischemic attack) - UTI (urinary tract infection) PAST SURGICAL HISTORY Procedure Laterality Date - LAMINECTOMY,LUMBAR 03/2016 L4-L5 - PAST SURGICAL HISTORY OF x 16 surgeries surgery to repair bone in knee cap and multiple arthroscopies and debridements - PAST SURGICAL HISTORY OF 2018 bronchoscopy FAMILY HISTORY Problem Relation Age of Onset - Emphysema Mother - Blood Clots Mother required IVC filter. Multiple blood clots before (3-4). - Hypertension Mother - Heart Failure Father 72 of CHF. 2 OR before that - Parkinson?s Disease Father 68 - Prostate Cancer Brother - Parkinson?s Disease Paternal Grandfather - Diabetes No Family History Social History Tobacco Use - Smoking status: Never Smoker - Smokeless tobacco: Never Used - Tobacco comment: second hand smoke from father. Substance and Sexual Activity - Alcohol use: No - Drug use: No - Sexual activity: Not Currently ALLERGIES Allergen Reactions - Avocado Swelling - Baclofen Other: See Comments Dizziness and full body weakness - Candasartan [Other] Rash - Chocolate Unknown - Ciprofloxacin (Bulk) Anaphylaxis - Grass Pollen Unknown - Indocin [Indomethac* Rash - Iodine Anaphylaxis - Penicillins Rash - Lima Oil Unknown - Propranolol Other: See Comments Severe low bp and kidneys shutting down. - Sulfa (Sulfonamide * Rash, Itching - Valium [Diazepam] Other: See Comments Depression Review of Systems Constitutional: Negative for chills and fever. HENT: Negative for rhinorrhea and sore throat. Respiratory: Negative for cough and shortness of breath. Cardiovascular: Negative for chest pain and leg swelling. Gastrointestinal: Negative for abdominal pain and vomiting. Genitourinary: Negative for difficulty urinating and dysuria. Skin: Negative for pallor and rash. Neurological: Positive for dizziness and light-headedness. Negative for syncope and headaches. Physical Exam BP 137/92 Pulse 83 Temp (Src) 97.7 (Oral) Resp 18 Ht 5' 9 (1.75m) Wt 229 lb 11.5 oz (104.2kg) SpO2 96% BMI 33.91 kg/(m2). O2 Therapy: Room Air Physical Exam Vitals signs and nursing note reviewed. Constitutional: General: He is not in acute distress. Appearance: He is well-developed. He is not diaphoretic. HENT: Head: Normocephalic and atraumatic. Nose: Nose normal. Mouth/Throat: Pharynx: No oropharyngeal exudate. Eyes: General: No scleral icterus. Right eye: No discharge. Left eye: No discharge. Conjunctiva/sclera: Conjunctivae normal. Neck: Musculoskeletal: Normal range of motion and neck supple. No muscular tenderness. Thyroid: No thyromegaly. Vascular: No JVD. Trachea: No tracheal deviation. Cardiovascular: Rate and Rhythm: Normal rate and regular rhythm. Heart sounds: No murmur. No friction rub. No gallop. Pulmonary: Effort: Pulmonary effort is normal. No respiratory distress. Breath sounds: Normal breath sounds. No wheezing or rales. Chest: Chest wall: No tenderness. Abdominal: General: There is no distension. Palpations: Abdomen is soft. Tenderness: There is no abdominal tenderness. There is no guarding or rebound. Musculoskeletal: General: Tenderness present. No deformity. Comments: Patient has tenderness to palpation of the mid shaft of the right femur, some bruising overlying that area. Patient has tenderness palpation of the right greater trochanter. Does have pain elicited with logroll of the right lower extremity. His leg is held in a shortened and externally rotated position. Skin: General: Skin is warm and dry. Capillary Refill: Capillary refill takes less than 2 seconds. Coloration: Skin is not pale. Findings: No erythema or rash. Neurological: General: No focal deficit present. Mental Status: He is alert. Sensory: No sensory deficit. Motor: No weakness. Coordination: Coordination normal. Comments: Strength 5 out of 5 in the right lower extremity and plantar flexion, dorsi flexion. Able to wiggle all toes. Unable to lift his right lower extremity off the bed secondary to pain. Able to lift his left lower showing off the bed. Dorsalis pedis pulse present in the right lower extremity. Psychiatric: Judgment: Judgment normal. Diagnostic Testing ED Labs Ordered and Reviewed BASIC METABOLIC PANEL (AK,AV,EU,FV,HL,ANEL,MM,SP ) - Abnormal; Notable for the following components: Result Value Ref Range Chloride 110 (*) 97 - 105 mmol/L CO2 21 (*) 22 - 30 mmol/L Glucose 104 (*) 74 - 99 mg/dL All other components within normal limits CBC + AUTO DIFF (AK,AV,EU,FV,HL,ANEL,MM,SP ) - Abnormal; Notable for the following components: RBC 4.61 (*) 4.63 - 6.08 mil/cmm HGB 13.5 (*) 13.7 - 17.5 g/dL RDW 16.0 (*) 11.6 - 14.4 % RDW-SD 51.8 (*) 36.1 - 45.8 fl Immature Grans # 0.09 (*) 0.00 - 0.05 thou/cmm Abs. Eosin 0.00 (*) 0.04 - 0.54 thou/cmm All other components within normal limits PROTHROMBIN TIME / PT (AK,AV,EU,FV,HL,ANEL,MM,SP ) ACTIVATED PTT (AK,AV,EU,FV,HL,ANEL,MM,SP ) MDRD GFR XR PELVIS 1V AP Final Result IMPRESSION: Acute right femoral neck fracture in severe varus alignment. Criminalist Technician: [facility] Transcribe Date/Time: Oct 16 2019 9:50P Dictated by : RONI MARVIN MD This examination was interpreted and the report reviewed and electronically signed by: RONI MARVIN MD on Oct 16 2019 9:53PM EST XR FEMUR GENERAL 2V AP/LAT RT Final Result IMPRESSION: Acute right femoral neck fracture in severe varus alignment. Criminalist Technician: [facility] Transcribe Date/Time: Oct 16 2019 9:50P Dictated by : RONI MARVIN MD This examination was interpreted and the report reviewed and electronically signed by: RONI MARVIN MD on Oct 16 2019 9:53PM EST Procedures ED Course / Clinical Impression ED Course as of Oct 16 102 Others' Documentation Sun Oct 16, 20195 My visualization of the xray shows right hip fracture. [EUGENE] ED Course User Index [EUGENE] Tisha Peña MD Clinical Impressions as of Oct 16 102 Closed displaced fracture of right femoral neck (HCC) MDM / Disposition / Plan MDM On my assessment concerned about a possible right hip fracture. Patient endorses no head trauma, he has a GCS of 15 and is acting appropriate here. I do not visualize any evidence of any head trauma, he has no midline neck tenderness palpation. I do not feel he needs any further imaging. Not on any anticoagulation, he states he has not been taking his aspirin. Labs obtained, largely unimpressive. X-rays positive for a right acute femoral neck fracture. Orthopedics was consult at. They will admit the patient to their service for further management. Patient was given morphine for pain. A fascia illiaca block was performed and patient tolerated the procedure. Admitted in stable condition. The patient was ADMITTED TO: Dr. Siegel. Condition at time of disposition: stable SIGNATURE: DO Aj Roger (Res) DO Jomar Resident 10/17/19 0106 Previous Version Hiral Castaneda MD 10/17/2019 7:41 AM Signed I evaluated the patient and personally participated in the antonio components. I agree with the resident's findings and plan with the following revisions and/or additions: Has a Garden III hip fracture. Multiple comorbidites and ambulation limitations due to Left TIA, essential tremor and bilateral knee arthritis. Uses cane at baseline. Will plan for attempted ORIF , possible prosthetic replacement. Risks, benefits and expected recovery of each procedure explained. All questions answered to his apparent satisfaction and agrees to proceed. Consent obtained. Also, has a history of DVT. Was on Eliquis but stopped due to reaction . Has been maintained on BID ASA. Will consult hematology for recommendations. Signature: Hiral Castaneda MD Service Date: 10/17/2019 Service Time: 7:37 AM ORTHOPAEDIC SURGERY HANDP Pt: VELIA BAGLEY Date of admssion: 10/16/2019 Admitting Physician: Dr. Siegel Chief Complaint: R hip pain HPI: 59 year old male with hx of HTN, TIA with residual R leg weakness and asthma presenting today with R hip pain after a fall while getting into his daughters car earlier this evening. Patient reports he just lost his balance and fell landing on his right side. The right sided hip pain with inability to ambulate so he presented to the ED for evaluation. Imaging revealed a right hip fracture so orthopedics was consulted. Patient complains of right-sided hip pain without any numbness or tingling to the right lower extremity. He denies any other injuries from the incident with the exception of a superficial abrasion to his right forearm. Patient ambulates with a cane at baseline due to residual weakness from a TIA he suffered from a few years ago. He is relatively active at home and is fully functional with his ADLs. Denies head trauma or LOC. Denies further complaints. PAST MEDICAL HISTORY Diagnosis Date - Carpal tunnel syndrome, bilateral - Essential tremor - GERD (gastroesophageal reflux disease) - History of lumbar laminectomy - HTN (hypertension) - Lumbar spinal stenosis - Migraines - Osteoarthritis - Severe persistent asthma - TIA (transient ischemic attack) - UTI (urinary tract infection) PAST SURGICAL HISTORY Procedure Laterality Date - LAMINECTOMY,LUMBAR 03/2016 L4-L5 - PAST SURGICAL HISTORY OF x 16 surgeries surgery to repair bone in knee cap and multiple arthroscopies and debridements - PAST SURGICAL HISTORY OF 2018 bronchoscopy Allergies: Avocado; Baclofen; Candasartan [Other]; Cat Dander; Chocolate; Ciprofloxacin (Bulk); Grass Pollen; Indocin [Indomethacin Sodium]; Iodine; Penicillins; Lima Oil; Propranolol; Sulfa (Sulfonamide Antibiotics); Valium [Diazepam] No current facility-administered medications for this encounter. Current Outpatient Medications Medication Sig - tamsulosin ER (FLOMAX) 0.4 mg cap TAKE 2 CAPSULES BY MOUTH EVERY DAY - nitrofurantoin monohydrate and macrocrystal (MACROBID) 100 mg capsule TAKE 1 CAPSULE BY MOUTH EVERY DAY - Catheter (GUTHRIE CATHETER) 14 Fr misc Self catheterize 3 times daily. - primidone (MYSOLINE) 50 mg tablet Take 250 mg by mouth daily at bedtime. - amitriptyline (ELAVIL) 100 mg tablet - atorvastatin (LIPITOR) 20 mg tablet - FASENRA 30 mg/mL injection - budesonide-formoterol (SYMBICORT) 160-4.5 mcg/actuation inhaler Inhale as instructed. - BREO ELLIPTA 200-25 mcg/dose inhaler - gabapentin (NEURONTIN) 300 mg capsule - HYDROcodone-acetaminophe n (NORCO) 5-325 mg per tablet - losartan (COZAAR) 100 mg tablet - rizatriptan (MAXALT) 10 mg tablet Take 10 mg by mouth. - topiramate (TOPAMAX) 200 mg tablet - NASAL ALLERGY 55 mcg nasal inhaler - fluticasone (FLONASE) 50 mcg/actuation nasal spray Use 2 Sprays in each nostril once daily. - FLUoxetine HCl (PROZAC) 40 mg capsule Take 20 mg by mouth daily at bedtime. - aspirin, enteric coated (ADULT LOW DOSE ASPIRIN) 81 mg EC tablet Take 1 tablet by mouth once daily. - Ranitidine HCl (ZANTAC) 300 mg tablet Take 1 tablet by mouth twice daily. - omeprazole (PRILOSEC) 20 mg capsule Take 1 capsule by mouth daily before dinner. 30 MINUTES BEFORE DINNER. - Dihydroergotamine Mesylate (MIGRANAL) 0.5 mg/pump act. (4 mg/mL) nasal spray Use 1 [place] in the nose as needed. Use in one nostril as directed. No more than 4 sprays in one hour (Patient not taking: Reported on 05/17/2018 ) - levalbuterol (XOPENEX) 1.25 mg/3 mL nebulizer solution Use 1 Ampule via nebulizer every 4 hours as needed. - umeclidinium (INCRUSE ELLIPTA) 62.5 mcg/actuation inhaler Inhale 1 Puff as instructed once daily. - montelukast (SINGULAIR) 10 mg tablet Take 10 mg by mouth daily at bedtime. - potassium chloride ER (K-DUR, KLOR-CON) 20 mEq tablet Take 20 mEq by mouth four times daily. - tamsulosin ER (FLOMAX) 0.4 mg cp24 Take 0.8 mg by mouth. - spironolactone (ALDACTONE) 25 mg tablet Take 25 mg by mouth once daily. - celecoxib (CELEBREX) 200 mg capsule Take 200 mg by mouth four times daily. - ALBUTEROL SULFATE (PROAIR HFA INHALATION) Inhale 2 Puffs as instructed. Prn SOB - tiZANidine 4 mg tablet Take 8 mg by mouth daily at bedtime. - topiramate (TOPAMAX) 100 mg tablet 2 in am, 1 at noon, 1 at evening and 2 at bedtime (600 mg/day total) (Patient taking differently: 100 mg. 2 in am, 1 at noon, 2 at evening and 1 at bedtime (600 mg/day total)) FH: Non-contributory. Negative for any bleeding or clotting disorders. Social Hx: Denies tobacco, alcohol illicit drug abuse. Ambulate with a cane at baseline. ROS: 10 pt ROS neg except in HPI O: Vitals: BP 117/77 Pulse 78 Temp 36.6 ?C (97.8 ?F) (Oral) Resp 18 Ht 175.3 cm (5' 9 ) Wt 103.9 kg (229 lb) SpO2 97% BMI 33.82 kg/m? Labs: Recent Labs 10/16/19 2043 NA 141 K see below CHLOR 110* CO2 21* BUN 16 CREAT 0.94 GLUC 104* ANION 10 CA 8.6 WBC 5.28 HB 13.5* HCT 41.4 PLT 196 INR 0.98 Physical exam: General: AANDO x 3; NAD. Cooperative throughout entire interview Head: Atraumatic Neck: supple Cards: RRR Lungs: Non-labored breathing Abdomen: S/nt/nd Neuro: Grossly intact Extremities: Evaluation of right lower extremity - shortened and externally rotated leg. No open wound, lacerations, abrasions or areas of ecchymosis. Non-tender over foot, heel, ankle, leg, knee, distal thigh. Negative logroll and no tenderness with axial loading. SILT S/S/SP/DP/T. Motor intact DF/PF/EHL. DP and PT pulses palpable, foot warm with brisk capillary refill. Compartments soft, compressible. Tolerates passive stretch of digits. Imaging: Multiple views of right hip reviewed and demonstrate a completely displaced femoral neck fracture. Joint space is well-maintained. No bony lesions or cortical erosions noted. A/P: 59 year old male with right femoral neck fracture Plan: - Admitted to orthopedics - Orthopedic intervention: Patient has a right-sided displaced femoral neck fracture. Plan for OR tomorrow for total hip arthroplasty - Consult sound medicine for perioperative optimization, medical management - WB status: Nonweightbearing right lower extremity - Diet: IVF/NPO at midnight (0001, 10/17/2019), may have regular diet until then - Pain control - Ice right hip - PT/OT: After surgery - Labs: TANDS, CBC, CMP, iNR/PT - DVT prophylaxis: Will hold chemoprophylaxis until after surgery - Fragility fracture - osteoporosis consult and Vit D - Discussed with Dr. Siegel who agrees with plan Jayant Srivastava MD 10:35 PM October 16, 2019 Previous Version Nay Hicks RN, RN 10/16/2019 10:33 PM Signed Type and Screen sent to lab. Nay Hicks RN, RN 10/16/2019 10:33 PM Signed Rapid Covid-19 swab taken to discharge specialist desk to be delivered to lab. Sammi Keith MD, MD 10/16/2019 11:41 PM Signed ED Procedure Note Patient Name: Velia Bagley SERVICE DATE: 10/16/19 NERVE BLOCK Date/Time: 10/16/2019 11:36 PM Performed by: Sammi Keith MD Authorized by: Sammi Keith MD Consent: Consent obtained: Written Consent given by: Patient Risks discussed: Allergic reaction, infection, nerve damage, swelling, unsuccessful block, pain, intravenous injection and bleeding Alternatives discussed: Alternative treatment Indications: Indications: Pain relief Location: Body area: Lower extremity Lower extremity nerve: Femoral (fascia iliaca) Laterality: Right Pre-procedure details: Skin preparation: 2% chlorhexidine Preparation: Patient was prepped and draped in usual sterile fashion Procedure details (see MAR for exact dosages): Block needle gauge: 25 G Guidance: ultrasound Anesthetic injected: Bupivacaine 0.25% w/o epi Injection procedure: Anatomic landmarks identified, anatomic landmarks palpated, introduced needle, incremental injection and negative aspiration for blood Paresthesia: None Post-procedure details: Dressing: None Outcome: Anesthesia achieved Patient tolerance of procedure: Tolerated well, no immediate complications Tisha Peña MD, 10/16/2019 11:45 PM Signed Attending Note I evaluated the patient and personally participated in the antonio components. I agree with the resident's findings and plan as documented except where my note differs, and I discussed the case and management of the patient's care with the resident. Patient was feeling dizzy getting into his car when he fell injured his right hip. Presents by EMS. No numbness in his foot and no weakness in his foot or ankle. Denies any other injuries such as to his chest head neck or back. No upper extremity injury. No loss of consciousness. He is not taking anticoagulants. Exam Semirecumbent bed nontoxic no distress. Head was atraumatic. Pupils equal round reactive to light. Normal [id number]. Oropharynx pink moist clear. Heart regular rate rhythm without murmurs rubs gallops. Lungs clear to auscultation without wheeze rhonchi crackles. He does have a small contusion on his right lower abdomen but it is not tender. He has no cervical thoracic or lumbar sacral spine tenderness. He is alert and oriented x3. The right hip is tender and is externally rotated and shortened. Intact distal pulse motor and sensory also intact. His other 3 extremities have good range of motion are atraumatic without motor or sensory or pulse deficit. Dr. Hadley discussed patient with orthopedics. Patient qualified for fascia iliaca block. He was consented and Dr. Keith and I performed the procedure together. I help with the aspiration and injection while she localized with the needle. Patient did have some initial symptoms of dizziness which triggered the fall but has no dysrhythmia or signs of ischemia on ECG. No cp or sob. He remarks that he had not been drinking many fluids today. Normal VS. Tisha Peña MD 10/16/19 [id number] Jaskaran Mcdonnell MD, MD 10/17/2019 1:35 AM Signed [facility] MEDICINE INITIAL CONSULT SERVICE DATE: 10/17/2019 SERVICE TIME: 1:21 AM Primary Care Physician: Rachel Rayo MD NIGHT AND WEEKEND COVERAGE: From 7am - 7pm, please call sound After 7pm, please call cross cover pager #[phone] REASON FOR CONSULT: preop evaluation REQUESTING PHYSICIAN: DR. siegel Subjective CHIEF COMPLAINT: Right hip fracture following fall HPI: This is a 59 year old male who presents with the above. Hospital medicine consulted for preop evaluation. Patient denies any chest pain or shortness of breath. Denies any exertional dyspnea. Denies any palpitations. Patient has had multiple surgeries with the most recent being in 2017 for laminectomy and has never experienced any perioperative complications. Patient hasn't any known heart disease. Has asthma which is well controlled. Is the Patient Experiencing Pain: No: 0 on a scale of 0 to 10 PAST MEDICAL HISTORY Diagnosis Date - Carpal tunnel syndrome, bilateral - Essential tremor - GERD (gastroesophageal reflux disease) - History of lumbar laminectomy - HTN (hypertension) - Lumbar spinal stenosis - Migraines - Osteoarthritis - Severe persistent asthma - TIA (transient ischemic attack) - UTI (urinary tract infection) PAST SURGICAL HISTORY Procedure Laterality Date - LAMINECTOMY,LUMBAR 03/2016 L4-L5 - PAST SURGICAL HISTORY OF x 16 surgeries surgery to repair bone in knee cap and multiple arthroscopies and debridements - PAST SURGICAL HISTORY OF 2018 bronchoscopy FAMILY HISTORY Problem Relation Age of Onset - Emphysema Mother - Blood Clots Mother required IVC filter. Multiple blood clots before (3-4). - Hypertension Mother - Heart Failure Father 72 of CHF. 2 OR before that - Parkinson?s Disease Father 68 - Prostate Cancer Brother - Parkinson?s Disease Paternal Grandfather - Diabetes No Family History Social History Tobacco Use - Smoking status: Never Smoker - Smokeless tobacco: Never Used - Tobacco comment: second hand smoke from father. Substance Use Topics - Alcohol use: No - Drug use: No MEDICATIONS: Reviewed umeclidinium (INCRUSE ELLIPTA) 62.5 mcg/actuation inhaler, Inhale 1 Puff as instructed once daily., Disp: , Rfl: tamsulosin ER (FLOMAX) 0.4 mg cap, TAKE 2 CAPSULES BY MOUTH EVERY DAY, Disp: 60 capsule, Rfl: 10 nitrofurantoin monohydrate and macrocrystal (MACROBID) 100 mg capsule, TAKE 1 CAPSULE BY MOUTH EVERY DAY, Disp: 30 capsule, Rfl: 10 Catheter (GUTHRIE CATHETER) 14 Fr misc, Self catheterize 3 times daily. (Patient not taking: Reported on 10/16/2019 ), Disp: 90 Each, Rfl: 11, Not Taking at Unknown time primidone (MYSOLINE) 50 mg tablet, Take 250 mg by mouth daily at bedtime. , Disp: , Rfl: amitriptyline (ELAVIL) 100 mg tablet, Take 25 mg by mouth once daily. , Disp: , Rfl: atorvastatin (LIPITOR) 20 mg tablet, Take 40 mg by mouth once daily. , Disp: , Rfl: FASENRA 30 mg/mL injection, Inject 30 mg subcutaneously every 8 weeks. Next one due 11/15/19 , Disp: , Rfl: budesonide-formoterol (SYMBICORT) 160-4.5 mcg/actuation inhaler, Inhale as instructed., Disp: , Rfl: BREO ELLIPTA 200-25 mcg/dose inhaler, Not taking , Disp: , Rfl: gabapentin (NEURONTIN) 300 mg capsule, Take 300 mg by mouth once daily. , Disp: , Rfl: HYDROcodone-acetaminophe n (NORCO) 5-325 mg per tablet, Take 1 tablet by mouth every 8 hours as needed. , Disp: , Rfl: losartan (COZAAR) 100 mg tablet, Take 100 mg by mouth once daily. , Disp: , Rfl: rizatriptan (MAXALT) 10 mg tablet, Take 10 mg by mouth., Disp: , Rfl: topiramate (TOPAMAX) 200 mg tablet, , Disp: , Rfl: NASAL ALLERGY 55 mcg nasal inhaler, , Disp: , Rfl: fluticasone (FLONASE) 50 mcg/actuation nasal spray, Use 2 Sprays in each nostril once daily., Disp: 1 Bottle, Rfl: 11 FLUoxetine HCl (PROZAC) 40 mg capsule, Take 20 mg by mouth daily at bedtime. Not taking , Disp: , Rfl: aspirin, enteric coated (ADULT LOW DOSE ASPIRIN) 81 mg EC tablet, Take 1 tablet by mouth once daily. (Patient not taking: Reported on 10/16/2019 ), Disp: , Rfl: , Not Taking at Unknown time Ranitidine HCl (ZANTAC) 300 mg tablet, Take 1 tablet by mouth twice daily., Disp: 60 tablet, Rfl: 11 omeprazole (PRILOSEC) 20 mg capsule, Take 1 capsule by mouth daily before dinner. 30 MINUTES BEFORE DINNER., Disp: 30 capsule, Rfl: 11 Dihydroergotamine Mesylate (MIGRANAL) 0.5 mg/pump act. (4 mg/mL) nasal spray, Use 1 [place] in the nose as needed. Use in one nostril as directed. No more than 4 sprays in one hour (Patient not taking: Reported on 05/17/2018 ), Disp: , Rfl: 11 levalbuterol (XOPENEX) 1.25 mg/3 mL nebulizer solution, Use 1 Ampule via nebulizer every 4 hours as needed., Disp: , Rfl: umeclidinium (INCRUSE ELLIPTA) 62.5 mcg/actuation inhaler, Inhale 1 Puff as instructed once daily., Disp: , Rfl: montelukast (SINGULAIR) 10 mg tablet, Take 10 mg by mouth daily at bedtime., Disp: , Rfl: potassium chloride ER (K-DUR, KLOR-CON) 20 mEq tablet, Take 20 mEq by mouth four times daily. , Disp: , Rfl: tamsulosin ER (FLOMAX) 0.4 mg cp24, Take 0.8 mg by mouth. , Disp: , Rfl: spironolactone (ALDACTONE) 25 mg tablet, Take 25 mg by mouth once daily., Disp: , Rfl: celecoxib (CELEBREX) 200 mg capsule, Take 200 mg by mouth four times daily. , Disp: , Rfl: ALBUTEROL SULFATE (PROAIR HFA INHALATION), Inhale 2 Puffs as instructed. Prn SOB, Disp: , Rfl: tiZANidine 4 mg tablet, Take 8 mg by mouth daily at bedtime. , Disp: , Rfl: topiramate (TOPAMAX) 100 mg tablet, 2 in am, 1 at noon, 1 at evening and 2 at bedtime (600 mg/day total) (Patient taking differently: 100 mg. 2 in am, 1 at noon, 2 at evening and 1 at bedtime (600 mg/day total)), Disp: , Rfl: Current Facility-Administered Medications Medication Dose Route Frequency - tiZANidine 8 mg tab(s) (ZANAFLEX) 8 mg ORAL AT BEDTIME - topiramate 100 mg tab(s) (TOPAMAX) 100 mg ORAL BID - spironolactone 25 mg tab(s) (ALDACTONE) 25 mg ORAL DAILY - celecoxib 200 mg cap(s) (CeleBREX) 200 mg ORAL QID - umeclidinium 62.5 mcg/actuation 1 Puff (INCRUSE ELLIPTA) 1 Puff INHALATION DAILY - montelukast 10 mg tab(s) (SINGULAIR) 10 mg ORAL AT BEDTIME - potassium chloride ER 20 mEq tab(s) (K-DUR, KLOR-CON) 20 mEq ORAL QID - Ranitidine HCl tab 300 mg 300 mg ORAL BID - FLUoxetine 20 mg cap(s) (PROzac) 20 mg ORAL AT BEDTIME - aspirin, enteric coated 81 mg tab(s) 81 mg ORAL DAILY - amitriptyline 100 mg tab(s) (ELAVIL) 100 mg ORAL AT BEDTIME - atorvastatin 20 mg tab(s) (LIPITOR) 20 mg ORAL DAILY - budesonide-formoterol 160-4.5 mcg/actuation 2 Puff (SYMBICORT) 2 Puff INHALATION TID PRN - gabapentin 300 mg cap(s) (NEURONTIN) 300 mg ORAL q 12 H - losartan 100 mg tab(s) (COZAAR) 100 mg ORAL DAILY - rizatriptan 10 mg tab(s) (MAXALT) 10 mg ORAL ONCE - primidone 250 mg tab(s) (MYSOLINE) 250 mg ORAL AT BEDTIME - tamsulosin ER 0.8 mg cap(s) (FLOMAX) 0.8 mg ORAL DAILY - lactated ringers infusion 125 mL/hr INTRAVENOUS CONTINUOUS - NaCl 0.9% 2-10 mL 2-10 mL INTRAVENOUS q 12 H - morphine 2 mg injection 2 mg INTRAVENOUS q 3 H PRN - oxyCODONE IR 5 mg tab(s) (ROXICODONE) 5 mg ORAL q 6 H PRN - docusate sodium 100 mg cap(s) (COLACE) 100 mg ORAL BID . ALLERGIES Allergen Reactions - Avocado Swelling - Baclofen Other: See Comments Dizziness and full body weakness - Candasartan [Other] Rash - Chocolate Unknown - Ciprofloxacin (Bulk) Anaphylaxis - Grass Pollen Unknown - Indocin [Indomethac* Rash - Iodine Anaphylaxis - Penicillins Rash - Lima Oil Unknown - Propranolol Other: See Comments Severe low bp and kidneys shutting down. - Sulfa (Sulfonamide * Rash, Itching - Valium [Diazepam] Other: See Comments Depression REVIEW OF SYSTEMS: Constitutional: Negative for chills and fever. HENT: Negative for rhinorrhea and sore throat. Respiratory: Negative for cough and shortness of breath. Cardiovascular: Negative for chest pain and leg swelling. Gastrointestinal: Negative for abdominal pain and vomiting. Genitourinary: Negative for difficulty urinating and dysuria. Skin: Negative for pallor and rash. Neurological: Positive for dizziness and light-headedness. Negative for syncope and headaches. Objective PHYSICAL EXAM: BP 137/92 Pulse 83 Temp (Src) 97.7 (Oral) Resp 18 Ht 5' 9 (1.75m) Wt 229 lb 11.5 oz (104.2kg) SpO2 96% BMI 33.91 kg/(m2). O2 Therapy: Room Air Physical Exam Performed: Constitutional: General: He is not in acute distress. Appearance: He is well-developed. He is not diaphoretic. HENT: Head: Normocephalic and atraumatic. Nose: Nose normal. Mouth/Throat: Pharynx: No oropharyngeal exudate. Eyes: General: No scleral icterus. Right eye: No discharge. Left eye: No discharge. Conjunctiva/sclera: Conjunctivae normal. Neck: Musculoskeletal: Normal range of motion and neck supple. No muscular tenderness. Thyroid: No thyromegaly. Vascular: No JVD. Trachea: No tracheal deviation. Cardiovascular: Rate and Rhythm: Normal rate and regular rhythm. Heart sounds: No murmur. No friction rub. No gallop. Pulmonary: Effort: Pulmonary effort is normal. No respiratory distress. Breath sounds: Normal breath sounds. No wheezing or rales. Chest: Chest wall: No tenderness. Abdominal: General: There is no distension. Palpations: Abdomen is soft. Tenderness: There is no abdominal tenderness. There is no guarding or rebound. Musculoskeletal: General: Tenderness present. No deformity. Comments: Patient has tenderness to palpation of the mid shaft of the right femur, some bruising overlying that area. Patient has tenderness palpation of the right greater trochanter. Does have pain elicited with logroll of the right lower extremity. His leg is held in a shortened and externally rotated position. Skin: General: Skin is warm and dry. Capillary Refill: Capillary refill takes less than 2 seconds. Coloration: Skin is not pale. Findings: No erythema or rash. Neurological: General: No focal deficit present. Mental Status: He is alert. Sensory: No sensory deficit. Motor: No weakness. Coordination: Coordination normal. Comments: Strength 5 out of 5 in the right lower extremity and plantar flexion, dorsi flexion. Able to wiggle all toes. Unable to lift his right lower extremity off the bed secondary to pain. Able to lift his left lower showing off the bed. Dorsalis pedis pulse present in the right lower extremity. Psychiatric: Judgment: Judgment normal. Lines, Drains, and Airways Line Peripheral 10/16/192045 Short Right Antecubital 20 Gauge less than 1 day Reviewed airway and will discuss with nurse to discontinue. DATA: Diagnostic tests reviewed for today's visit: Most recent labs and imaging results. Impression/Recommendatio ns Active Problems: Preoperative medical evaluation for planned ORIF for right hip fracture. Patient at average risk for perioperative cardiovascular complications. No contraindications to surgery and primary team may proceed with surgery. Hypertension. Well-controlled. Obesity. Lifestyle modifications. Asthma. Well-controlled. Resolved Problems: * No resolved hospital problems. * VTE PROPHYLAXIS: As per primary team Disposition: To be determined Plan of care discussed with: Provider, RN, Patient SIGNATURE: Jaskaran Mcdonnell MD PATIENT NAME: Velia Bagley DATE: October 17, 2019 TIME: 1:21 AM PAGER/CONTACT #: [phone] Jayant Srivastava MD, 10/17/2019 6:31 AM Addendum ORTHOPAEDIC SURGERY DAILY PROGRESS NOTE Patient Name: Velia Bagley Date of Evaluation: 10/17/2019 Admission Date: 10/16/2019 Time of Evaluation: 6:17 AM A/P: 59 year old male with right femoral neck fracture ? Plan: - Admitted to orthopedics - Orthopedic intervention: Patient has a right-sided displaced femoral neck fracture. Plan for OR todayfor total hip arthroplasty - Consult [facility] for perioperative optimization, medical management - WB status: Nonweightbearing right lower extremity - Diet: NPO now - Pain control - Ice right hip - PT/OT: After surgery - Labs: TANDS, CBC, CMP, iNR/PT - DVT prophylaxis: Will hold chemoprophylaxis until after surgery - Fragility fracture - osteoporosis consult and Vit D INTERVAL HPI: Patient monitored, no new events overnight. Pt reports controlled pain. Denies fevers/chills. Denies numbness/tingling. OBJECTIVE: BP 102/54 Pulse 60 Temp 36.7 ?C (98 ?F) (Oral) Resp 18 Ht 175.3 cm (5' 9 ) Wt 104.2 kg (229 lb 11.5 oz) SpO2 95% BMI 33.92 kg/m? Intake/Output Summary (Last 24 hours) No intake/output data recorded. Exam: General: NAD, AAOx3 Extremities: Evaluation of right lower extremity - shortened and externally rotated leg. No open wound, lacerations, abrasions or areas of ecchymosis. Non-tender over foot, heel, ankle, leg, knee, distal thigh. Negative logroll and no tenderness with axial loading. SILT S/S/SP/DP/T. Motor intact DF/PF/EHL. DP and PT pulses palpable, foot warm with brisk capillary refill. Compartments soft, compressible. Tolerates passive stretch of digits. Labs: BMP: Sodium 141 10/16/2019 Potassium see below 10/16/2019 Chloride 110 10/16/2019 CO2 21 10/16/2019 BUN 16 10/16/2019 Creatinine, Whole Blood (iSTAT) 0.94 10/16/2019 Glucose 104 10/16/2019 CBC: WBC 5.28 10/16/2019 Hemoglobin 13.5 10/16/2019 Hematocrit 41.4 10/16/2019 Platelet Count 196 10/16/2019 COAGS: APTT 23.2 10/16/2019 PT INR 0.98 10/16/2019 Jayant Srivastava MD Resident, Orthopaedic Surgery Pager: [phone] 10/17/2019 6:17 AM Previous Version Jo Cruz RN 10/17/2019 8:19 AM Signed ANCILLARY ORTHOPEDIC RESERVE OFFICER PROGRESS NOTE SERVICE DATE: 10/17/2019 SERVICE TIME: 0810 Spoke to patient at bedside, he is doing ok, pain managed. Patient to OR today for RONALD. He is from home with son, lives in a ranch home, no steps to enter. Patient states he has a ww/cane/shower chair at home, plans to discharge home with [facility], pending PT eval following surgery. I will continue to follow for needs, complete care guide given and explained. SIGNATURE: Jo Cruz RN PATIENT NAME: Velia Bagley DATE: October 17, 2019 TIME: 8:17 AM PAGER/CONTACT #: [phone] EDI Neri 10/17/2019 10:07 AM Signed CARE MANAGEMENT: ASSESSMENT AND DISCHARGE PLAN SERVICE DATE: October 17, 2019 SERVICE TIME: 1000 PRIMARY CARE PHYSICIAN: Rachel Rayo MD ADMISSION STATUS: Inpatient Needs Prior to Discharge: OT/PT Evaluation MEDICAL: ELIER QUINTANA Patient/Public Health Doctor Stated Goals: To have reduction in symptoms;To improve my functional status Health Insurance: [email or web address] Issues Impacting Discharge Plan: (OR todayfor total hip arthroplasty) Last Discharge Date: 10/15/17 Is this Within the Past 30 days? Last discharge within 30 days: No Advance Directive: Current Advance Directive: None Line Out Worker Attempted to Assist with AD Completion: Yes Action: Patient Unwilling Health LiteracyHow often do you need to have someone help you when you read instructions, pamphlets, or other written material from your doctor or pharmacy? : 1 - Never How confident are you filling out medical forms by yourself?: 1 - Extremely If Patient scores > 3 on either question, the following interventions were put into place:: Patient did not score > 3 on either question. Baseline Mental Status Prior to this Illness what was the patient's Baseline Mental Status?: Alert AND Oriented Prior to this illness, has anyone described the patient having any of the following behaviors?: Not Applicable Relationship of the informant to the patient:: Self Functional Status: Independent Does Patient Currently Receive Any Community Services or Home Care?: None Equipment Prior to Admission: Cane;Walker;Glucometer;T ub bench/chair SOCIAL: Living Arrangements: Home Lives With: Son Financial Resources: RetiredPrimary Contact: Extended Emergency Contact Information Primary Emergency Contact: YudiTeri Relation: Daughter Secondary Emergency Contact: Adams Bagley Mobile Relation: Son Supportive Patient Contact:: Yes Contact Resources: Family Social Needs Food insecurity Worry: Never true Inability: Never true Resources Needed: No Social Needs Financial resource strain: Not hard at all Social Needs Transportation needs Medical: No Non-medical: No Caregiver AssessmentCaregiver is ready, willing and able to meet the patient's needs as recommended by the inter-professional team:: No Caregiver needed Does the patient have an acute stroke diagnosis, or has the patient had a stroke during this admission?: No Patient's transition needs and plan for meeting these needs: Plan for surgery today, current plan to return home. Patient's perception of need for this admission: Fall Medication Adherance I am convinced of the importance of my prescription medication: 0 - Agree Completely I worry that my prescription medication will do more harm than good to me : 0 - Disagree Completely I feel financially burdened by my [id number] expenses for my prescription medication:: 0 - Disagree Completely Risk Score: 0 Patient is categorized as: Low risk < 2 Are you interested in bedside delivery of your medications? No Is Patient Psychosocially Complex?: No ASSESSMENT AND PLAN: Medical Needs: Medical Needs: Two or more chronic diseases Psychosocial Needs: Psychosocial Needs: None FREEDOM OF CHOICE EXPLAINED: [place] of Choice Given: No Reason Not Given: No placements necessary POTENTIAL TRANSITION PLANS Home Pt from home with spouse. Pt IND, +DME, +PCP, +rx coverage. 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 Rx coverage at [facility]. Plan for surgery today. Plan for home at discharge. SIGNATURE: EDI Neri PATIENT NAME: Velia Bagley DATE: October 17, 2019 TIME: 10:05 AM PAGER/CONTACT #: [phone] Meka Barajas RN, RN 10/17/2019 12:04 PM Signed PRE OP LEARNING ASSESSMENT READINESS TO LEARN COGNITIVE ABILITY: Alert and oriented MOTIVATION TO LEARN: Eager FAMILY SUPPORT: High - Very involved in pt care PATIENT LEARNS BEST BY: Multiple Methods FACTORS AFFECTING LEARNING: None PHYSICAL LIMITATIONS AFFECTING LEARNING: None Electronically Signed By: Meka Barajas RN In Department: [facility] OR Edith Fernando MD 10/17/2019 1:15 PM Signed ANESTHESIOLOGY DAY OF SURGERY NOTE SERVICE DATE: 10/17/2019 SERVICE TIME: 1:10 PM : 1960 Procedure(s) (LRB): IMPLANT SCREW CANNULATED HIP WITH C-ARM (Right) HEMIARTHROPLASTY REPLACE JOINT PARTIAL HIP (Right) Surgeon(s): Hiral Castaneda Estimated body mass index is 33.92 kg/m? as calculated from the following: Height as of this encounter: 175.3 cm (5' 9 ). Weight as of this encounter: 104.2 kg (229 lb 11.5 oz). Most recent hematocrit and potassium results: Hematocrit 41.4 10/16/2019 Potassium see below 10/16/2019 ANES DOS/PREOP NOTE: Vitals: 10/17/19 0336 10/17/19 1043 10/17/19 1200 10/17/19 1300 BP: 102/54 129/83 146/93 Pulse: 60 82 82 80 Resp: 18 16 16 Temp: 36.7 ?C (98 ?F) 36.5 ?C (97.7 ?F) 36.4 ?C (97.5 ?F) TempSrc: Oral Axillary Temporal SpO2: 95% 96% 97% 97% Weight: Height: ACTIVE PROBLEM LIST Variants of Migraine, Not Elsewhere Classified, With Intractable Migraine, So Stated, Without Mention of Status Migrainosus Carpal Tunnel Syndrome Cervicalgia Myalgia and Myositis, Unspecified Iron Deficiency Anemia Weakness Lymphadenopathy Closed Displaced Fracture of Right Femoral Neck (Hcc) PAST MEDICAL HISTORY Diagnosis Date - Carpal tunnel syndrome, bilateral - Essential tremor - GERD (gastroesophageal reflux disease) - History of lumbar laminectomy - HTN (hypertension) - Lumbar spinal stenosis - Migraines - Osteoarthritis - Severe persistent asthma - TIA (transient ischemic attack) - UTI (urinary tract infection) PAST SURGICAL HISTORY Procedure Laterality Date - LAMINECTOMY,LUMBAR 03/2016 L4-L5 - PAST SURGICAL HISTORY OF x 16 surgeries surgery to repair bone in knee cap and multiple arthroscopies and debridements - PAST SURGICAL HISTORY OF 2018 bronchoscopy FAMILY HISTORY Problem Relation Age of Onset - Emphysema Mother - Blood Clots Mother required IVC filter. Multiple blood clots before (3-4). - Hypertension Mother - Heart Failure Father 72 of CHF. 2 OR before that - Parkinson?s Disease Father 68 - Prostate Cancer Brother - Parkinson?s Disease Paternal Grandfather - Diabetes No Family History Social History: Social History Tobacco Use - Smoking status: Never Smoker - Smokeless tobacco: Never Used - Tobacco comment: second hand smoke from father. Substance Use Topics - Alcohol use: No - Drug use: No No current facility-administered medications on file prior to encounter. Current Outpatient Medications on File Prior to Encounter Medication Sig - amLODIPine (NORVASC) 5 mg tablet Take 5 mg by mouth once daily. - cloNIDine HCl (CATAPRES) 0.1 mg tablet Take 0.1 mg by mouth twice daily before meals (0600/1600). - umeclidinium (INCRUSE ELLIPTA) 62.5 mcg/actuation inhaler Inhale 1 Puff as instructed once daily. - tamsulosin ER (FLOMAX) 0.4 mg cap TAKE 2 CAPSULES BY MOUTH EVERY DAY (Patient taking differently: 0.4 mg twice daily. ) - nitrofurantoin monohydrate and macrocrystal (MACROBID) 100 mg capsule TAKE 1 CAPSULE BY MOUTH EVERY DAY - primidone (MYSOLINE) 50 mg tablet Take 250 mg by mouth daily at bedtime. - amitriptyline (ELAVIL) 100 mg tablet Take 50 mg by mouth daily at bedtime. - atorvastatin (LIPITOR) 20 mg tablet Take 40 mg by mouth once daily. - FASENRA 30 mg/mL injection Inject 30 mg subcutaneously every 8 weeks. Next one due 11/15/19 - budesonide-formoterol (SYMBICORT) 160-4.5 mcg/actuation inhaler Inhale 2 Puffs as instructed twice daily. - gabapentin (NEURONTIN) 300 mg capsule Take 800 mg by mouth four times daily. - losartan (COZAAR) 100 mg tablet Take 100 mg by mouth once daily. - rizatriptan (MAXALT) 10 mg tablet Take 10 mg by mouth as needed. - fluticasone (FLONASE) 50 mcg/actuation nasal spray Use 2 Sprays in each nostril once daily. - omeprazole (PRILOSEC) 20 mg capsule Take 1 capsule by mouth daily before dinner. 30 MINUTES BEFORE DINNER. (Patient taking differently: Take 20 mg by mouth twice daily. 30 MINUTES BEFORE DINNER. ) - montelukast (SINGULAIR) 10 mg tablet Take 10 mg by mouth daily at bedtime. - potassium chloride ER (K-DUR, KLOR-CON) 20 mEq tablet Take 20 mEq by mouth four times daily. - spironolactone (ALDACTONE) 25 mg tablet Take 25 mg by mouth once daily. - celecoxib (CELEBREX) 200 mg capsule Take 200 mg by mouth four times daily. - ALBUTEROL SULFATE (PROAIR HFA INHALATION) Inhale 2 Puffs as instructed. Prn SOB - topiramate (TOPAMAX) 100 mg tablet 2 in am, 1 at noon, 1 at evening and 2 at bedtime (600 mg/day total) (Patient taking differently: 100 mg. 2 in am, 1 at noon, 2 at evening and 1 at bedtime (600 mg/day total)) - NASAL ALLERGY 55 mcg nasal inhaler Current Facility-Administered Medications Medication Dose Route Frequency Provider Last Rate Last Dose - [MAR Hold due to Transfer] glycopyrrolate 15.6 mcg cap(s) and device for inhalation (SEEBRI NEOHALER) 15.6 mcg INHALATION BID Jayant (Betty) MD Carola - [MAR Hold due to Transfer] SUMAtriptan 100 mg tab(s) (IMITREX) 100 mg ORAL DIRECTED PRN Jayant Yoon) MD Carola - [MAR Hold due to Transfer] pantoprazole DR 40 mg tab(s) (PROTONIX) 40 mg ORAL BID AC () Jayant Srivastava MD - [MAR Hold due to Transfer] amitriptyline 50 mg tab(s) (ELAVIL) 50 mg ORAL AT BEDTIME Payal Barajas - [MAR Hold due to Transfer] atorvastatin 40 mg tab(s) (LIPITOR) 40 mg ORAL AT BEDTIME Payal Barajas - [MAR Hold due to Transfer] tamsulosin ER 0.4 mg cap(s) (FLOMAX) 0.4 mg ORAL BID Payal Chacko) Priscilla - [MAR Hold due to Transfer] cloNIDine HCl 0.1 mg tab(s) (CATAPRES) 0.1 mg ORAL BID AC () Payal Barajas - [MAR Hold due to Transfer] amLODIPine 5 mg tab(s) (NORVASC) 5 mg ORAL DAILY Payal Chacko) Priscilla - [MAR Hold due to Transfer] topiramate 200 mg tab(s) (TOPAMAX) 200 mg ORAL DAILY Payal Chacko) Priscilla - [MAR Hold due to Transfer] topiramate 100 mg tab(s) (TOPAMAX) 100 mg ORAL q NOON Payal (Jaclyn) Priscilla - [MAR Hold due to Transfer] topiramate 100 mg tab(s) (TOPAMAX) 100 mg ORAL AT BEDTIME Payal (Jaclyn) Priscilla - [MAR Hold due to Transfer] gabapentin 800 mg cap(s) (NEURONTIN) 800 mg ORAL QID Payal (Jaclyn) Priscilla - [MAR Hold due to Transfer] tiZANidine 8 mg tab(s) (ZANAFLEX) 8 mg ORAL AT BEDTIME Jayant (Don Srivastava MD 8 mg at 10/17/1921 - [MAR Hold due to Transfer] spironolactone 25 mg tab(s) (ALDACTONE) 25 mg ORAL DAILY Jayant (Don Srivastava MD - [MAR Hold due to Transfer] celecoxib 200 mg cap(s) (CeleBREX) 200 mg ORAL QID Jayant (Betty) MD Carola - [MAR Hold due to Transfer] montelukast 10 mg tab(s) (SINGULAIR) 10 mg ORAL AT BEDTIME Jayant (Don Srivastava MD - [MAR Hold due to Transfer] potassium chloride ER 20 mEq tab(s) (K-DUR, KLOR-CON) 20 mEq ORAL QID Jayant (Don Srivastava MD - [MAR Hold due to Transfer] aspirin, enteric coated 81 mg tab(s) 81 mg ORAL DAILY Jayant (Betty) MD Carola - [MAR Hold due to Transfer] losartan 100 mg tab(s) (COZAAR) 100 mg ORAL DAILY Jayant (Don Srivastava MD - [MAR Hold due to Transfer] primidone 250 mg tab(s) (MYSOLINE) 250 mg ORAL AT BEDTIME Jayant (Don Srivastava MD 250 mg at 10/17/19 002 - [MAR Hold due to Transfer] lactated ringers infusion 125 mL/hr INTRAVENOUS CONTINUOUS Jayant Srivastava MD 125 mL/hr at 10/17/1921 125 mL/hr at 10/17/1921 - [MAR Hold due to Transfer] NaCl 0.9% 2-10 mL 2-10 mL INTRAVENOUS q 12 H Jayant (Don Srivastava MD - [MAR Hold due to Transfer] morphine 2 mg injection 2 mg INTRAVENOUS q 3 H PRN Jayant Srivastava MD 2 mg at 10/17/19 1031 - [MAR Hold due to Transfer] oxyCODONE IR 5 mg tab(s) (ROXICODONE) 5 mg ORAL q 6 H PRN Jayant Srivastava MD 5 mg at 10/17/19 0021 - [MAR Hold due to Transfer] docusate sodium 100 mg cap(s) (COLACE) 100 mg ORAL BID Jayant Srivastava MD Allergies: ALLERGIES Allergen Reactions - Avocado Swelling - Baclofen Other: See Comments Dizziness and full body weakness - Candasartan [Other] Rash - Chocolate Unknown - Ciprofloxacin (Bulk) Anaphylaxis - Grass Pollen Unknown - Indocin [Indomethac* Rash - Iodine Anaphylaxis - Penicillins Rash - Lima Oil Unknown - Propranolol Other: See Comments Severe low bp and kidneys shutting down. - Sulfa (Sulfonamide * Rash, Itching - Valium [Diazepam] Other: See Comments Depression DOS EXAM: Adequate NPO status: Yes Anesthetic risks, benefits, alternatives, personnel and consent discussed: Yes Patient agrees to proceed: Yes Previous Anesthesia: No history of adverse event. Airway Assessment: MP 2; Neck ROM: Full ROM without neurologic symptoms; Airway Evaluation: Short Neck, Thick neck, Small Mouth Opening and Pena Present Symptoms of Sleep Apnea: Age over 50 (59 year old) and Male gender Dentition: Chipped, loose and/or missing Additional Physical Exam: Lungs: Patient health status unchanged since recent history and physical. See history and physical for exam findings. Cardiac: Patient health status unchanged since recent history and physical. See history and physical for exam findings. Additional Pertinent Findings: N/A Blood Products: Not anticipated for this procedure. 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 I have reviewed the medical record and/or the pre-anesthesia evaluation, pertinent labs, and test results. Significant changes in the patient's condition since the History and Physical, not otherwise documented in primary service progress notes: No This contains updated information obtained within 48 hours of Surgery/Procedure. SIGNATURE: Edith Fernando MD PATIENT NAME: Velia Bagley DATE: October 17, 2019 TIME: 1:10 PM CSN: [id number] Mathew Yanez MD 10/17/2019 1:33 PM Incomplete VELIA BAGLEY 59 year old HEMATOLOGY CONSULTATION: History of DVT, history of TIA, 24 HOUR COMFORT MEDICATIONS: Subjective HPI: 51-year-old male, status post fall, admitted on 10/16/2019, diagnosed with an acute right hip fracture, with multiple views of the right hip showing a completely displaced femoral neck fracture, joint space is well-maintained, no bony lesions or cortical erosions. He underwent total hip arthroplasty on 10/15 Positive history of migraine, iron deficiency anemia, lumbar spinal stenosis, TIA, history of prior DVT,left common femoral vein, in November 2017, suboptimally treated with apixaban in the past. Previously evaluated for inguinal lymphadenopathy, with negative biopsy. Current Facility-Administered Medications Medication Dose Route Frequency Provider Last Rate Last Dose - [MAR Hold due to Transfer] glycopyrrolate 15.6 mcg cap(s) and device for inhalation (SEEBRI NEOHALER) 15.6 mcg INHALATION BID Jayant (Betty) MD Carola - [MAR Hold due to Transfer] SUMAtriptan 100 mg tab(s) (IMITREX) 100 mg ORAL DIRECTED PRN Jayant (Betty) MD Carola - [MAR Hold due to Transfer] pantoprazole DR 40 mg tab(s) (PROTONIX) 40 mg ORAL BID AC (06) Jayant Srivastava MD - [MAR Hold due to Transfer] amitriptyline 50 mg tab(s) (ELAVIL) 50 mg ORAL AT BEDTIME Payal (Jaclyn) Priscilla - [MAR Hold due to Transfer] atorvastatin 40 mg tab(s) (LIPITOR) 40 mg ORAL AT BEDTIME Payal (Jaclyn) Priscilla - [MAR Hold due to Transfer] tamsulosin ER 0.4 mg cap(s) (FLOMAX) 0.4 mg ORAL BID Payal (Jaclyn) Priscilla - [MAR Hold due to Transfer] cloNIDine HCl 0.1 mg tab(s) (CATAPRES) 0.1 mg ORAL BID AC () Payal Chacko) Priscilla - [MAR Hold due to Transfer] amLODIPine 5 mg tab(s) (NORVASC) 5 mg ORAL DAILY Payal (Jaclyn) Priscilla - [MAR Hold due to Transfer] topiramate 200 mg tab(s) (TOPAMAX) 200 mg ORAL DAILY Payal (Jaclyn) Priscilla - [MAR Hold due to Transfer] topiramate 100 mg tab(s) (TOPAMAX) 100 mg ORAL q NOON Payal (Jaclyn) Priscilla - [MAR Hold due to Transfer] topiramate 100 mg tab(s) (TOPAMAX) 100 mg ORAL AT BEDTIME Payal (Jaclyn) Priscilla - [MAR Hold due to Transfer] gabapentin 800 mg cap(s) (NEURONTIN) 800 mg ORAL QID Payal (Jaclyn) Priscilla - [MAR Hold due to Transfer] tiZANidine 8 mg tab(s) (ZANAFLEX) 8 mg ORAL AT BEDTIME Jayant (Don Srivastava MD 8 mg at 10/17/19 0022 - [MAR Hold due to Transfer] spironolactone 25 mg tab(s) (ALDACTONE) 25 mg ORAL DAILY Jayant (Betty) MD Carola - [MAR Hold due to Transfer] celecoxib 200 mg cap(s) (CeleBREX) 200 mg ORAL QID Jayant (Betty) MD Carola - [MAR Hold due to Transfer] montelukast 10 mg tab(s) (SINGULAIR) 10 mg ORAL AT BEDTIME Jayant (Betty) MD Carola - [MAR Hold due to Transfer] potassium chloride ER 20 mEq tab(s) (K-DUR, KLOR-CON) 20 mEq ORAL QID Jayant (Betty) MD Carola - [MAR Hold due to Transfer] aspirin, enteric coated 81 mg tab(s) 81 mg ORAL DAILY Jayant (Don Srivastava MD - [MAR Hold due to Transfer] losartan 100 mg tab(s) (COZAAR) 100 mg ORAL DAILY Jayant (Don Srivastava MD - [MAR Hold due to Transfer] primidone 250 mg tab(s) (MYSOLINE) 250 mg ORAL AT BEDTIME Jayant (Don Srivastava MD 250 mg at 10/17/19 0021 - [MAR Hold due to Transfer] lactated ringers infusion 125 mL/hr INTRAVENOUS CONTINUOUS Jayant Srivastava MD 125 mL/hr at 10/17/19 0022 125 mL/hr at 10/17/19 0022 - [MAR Hold due to Transfer] NaCl 0.9% 2-10 mL 2-10 mL INTRAVENOUS q 12 H Jayant Srivastava MD - [MAR Hold due to Transfer] morphine 2 mg injection 2 mg INTRAVENOUS q 3 H PRN Jayant Srivastava MD 2 mg at 10/17/19 1031 - [MAR Hold due to Transfer] oxyCODONE IR 5 mg tab(s) (ROXICODONE) 5 mg ORAL q 6 H PRN Jayant Srivastava MD 5 mg at 10/17/19 0021 - [MAR Hold due to Transfer] docusate sodium 100 mg cap(s) (COLACE) 100 mg ORAL BID Jayant Srivastava MD amLODIPine (NORVASC) 5 mg tablet, Take 5 mg by mouth once daily., Disp: , Rfl: cloNIDine HCl (CATAPRES) 0.1 mg tablet, Take 0.1 mg by mouth twice daily before meals (0600/1600)., Disp: , Rfl: umeclidinium (INCRUSE ELLIPTA) 62.5 mcg/actuation inhaler, Inhale 1 Puff as instructed once daily., Disp: , Rfl: tamsulosin ER (FLOMAX) 0.4 mg cap, TAKE 2 CAPSULES BY MOUTH EVERY DAY (Patient taking differently: 0.4 mg twice daily. ), Disp: 60 capsule, Rfl: 10 nitrofurantoin monohydrate and macrocrystal (MACROBID) 100 mg capsule, TAKE 1 CAPSULE BY MOUTH EVERY DAY, Disp: 30 capsule, Rfl: 10 primidone (MYSOLINE) 50 mg tablet, Take 250 mg by mouth daily at bedtime. , Disp: , Rfl: amitriptyline (ELAVIL) 100 mg tablet, Take 50 mg by mouth daily at bedtime. , Disp: , Rfl: atorvastatin (LIPITOR) 20 mg tablet, Take 40 mg by mouth once daily. , Disp: , Rfl: FASENRA 30 mg/mL injection, Inject 30 mg subcutaneously every 8 weeks. Next one due 11/15/19 , Disp: , Rfl: budesonide-formoterol (SYMBICORT) 160-4.5 mcg/actuation inhaler, Inhale 2 Puffs as instructed twice daily. , Disp: , Rfl: gabapentin (NEURONTIN) 300 mg capsule, Take 800 mg by mouth four times daily. , Disp: , Rfl: , 10/17/2019 at Unknown time losartan (COZAAR) 100 mg tablet, Take 100 mg by mouth once daily. , Disp: , Rfl: rizatriptan (MAXALT) 10 mg tablet, Take 10 mg by mouth as needed. , Disp: , Rfl: fluticasone (FLONASE) 50 mcg/actuation nasal spray, Use 2 Sprays in each nostril once daily., Disp: 1 Bottle, Rfl: 11 omeprazole (PRILOSEC) 20 mg capsule, Take 1 capsule by mouth daily before dinner. 30 MINUTES BEFORE DINNER. (Patient taking differently: Take 20 mg by mouth twice daily. 30 MINUTES BEFORE DINNER. ), Disp: 30 capsule, Rfl: 11 montelukast (SINGULAIR) 10 mg tablet, Take 10 mg by mouth daily at bedtime., Disp: , Rfl: potassium chloride ER (K-DUR, KLOR-CON) 20 mEq tablet, Take 20 mEq by mouth four times daily. , Disp: , Rfl: spironolactone (ALDACTONE) 25 mg tablet, Take 25 mg by mouth once daily., Disp: , Rfl: celecoxib (CELEBREX) 200 mg capsule, Take 200 mg by mouth four times daily. , Disp: , Rfl: ALBUTEROL SULFATE (PROAIR HFA INHALATION), Inhale 2 Puffs as instructed. Prn SOB, Disp: , Rfl: topiramate (TOPAMAX) 100 mg tablet, 2 in am, 1 at noon, 1 at evening and 2 at bedtime (600 mg/day total) (Patient taking differently: 100 mg. 2 in am, 1 at noon, 2 at evening and 1 at bedtime (600 mg/day total)), Disp: , Rfl: NASAL ALLERGY 55 mcg nasal inhaler, , Disp: , Rfl: Social History Tobacco Use - Smoking status: Never Smoker - Smokeless tobacco: Never Used - Tobacco comment: second hand smoke from father. Substance Use Topics - Alcohol use: No - Drug use: No FAMILY HISTORY Problem Relation Age of Onset - Emphysema Mother - Blood Clots Mother required IVC filter. Multiple blood clots before (3-4). - Hypertension Mother - Heart Failure Father 72 of CHF. 2 OR before that - Parkinson?s Disease Father 68 - Prostate Cancer Brother - Parkinson?s Disease Paternal Grandfather - Diabetes No Family History PAST SURGICAL HISTORY Procedure Laterality Date - LAMINECTOMY,LUMBAR 03/2016 L4-L5 - PAST SURGICAL HISTORY OF x 16 surgeries surgery to repair bone in knee cap and multiple arthroscopies and debridements - PAST SURGICAL HISTORY OF 2018 bronchoscopy ROS: All of the following reviewed and negative except as noted below: GENERAL: no fever, chills, sweats, weight loss, fatigue, generalized weakness HEENT: no headache, vision changes, eye discomfort, hearing change, ear discomfort, sinus pain, nasal discharge or congestion, oral lesions, soreness, dental problem NECK: no adenopathy, discomfort, change in ROM CHEST: no shortness of breath, dyspnea on exertion, wheezing, cough, sputum production or chest pain HEART: no chest pain, palpitations, syncope ABDOMEN: no nausea, vomiting, constipation, diarrhea, abdominal pain : no dysuria, urgency, frequency, history of stones, incontinence NEURO: no confusion or alteration in consciousness, slurred speech, seizure, focal weakness EXTREMITIES: no new pain, edema, change in ROM HEME: no new adenopathy, bruises, petechiae PSYCH: no depression, anxiety, agitation PHYSICAL EXAMINATION: see below for new or abnormal findings BP 146/93 Pulse 80 Temp 36.4 ?C (97.5 ?F) (Temporal) Resp 16 Ht 175.3 cm (5' 9 ) Wt 104.2 kg (229 lb 11.5 oz) SpO2 97% BMI 33.92 kg/m? BMI 33.92 kg/(m2) Date 10/17/19699 - 10/18/19658 Shift [id number] 8017-4551 0840-8581 24 Hour Total INTAKE Shift Total OUTPUT Urine 800 800 Shift Total 800 800 Weight (kg) 104.2 104.2 104.2 104.2 Date 10/16/19699 - 10/17/1965810/17/19699 - 10/18/1958 Shift [id number] 3920-4601 4488-4149 24 Hour Total 8616-4233 0621-3610 9484-3763 24 Hour Total INTAKE Shift Total OUTPUT Urine 800 800 Void (ml) 800 800 Shift Total 800 800 Weight (kg) 103.9 104.2 104.2 104.2 104.2 104.2 104.2 GENERAL: well nourished and developed; no acute distress; alert and oriented x 3; intact judgement and insight HEENT: no evidence of trauma; cranial nerves intact; eyes clear EOMI; no hearing deficits apparent; nasal passages unremarkable; throat and mucous membranes clear NECK: supple without lymphadenopathy; no JVD; no thyromegaly CHEST: clear bilaterally to auscultation; normal chest movement; no rales or rhonchi HEART: regular rate and rhythm, normal S1 and S2, no murmurs, clicks, rubs, or gallops ABDOMEN: soft; nondistended; bowel sounds present; no hepatomegaly; no splenomegaly; no tenderness EXTREMITIES: no evidence of clubbing; no cyanosis; no deformity; no joint effusion; no edema NEURO: cranial nerves intact; no focal deficits; no confusion; no tremor; sensorium normal SKIN: no rash; no skin breakdown; no decubitus lesions HEME: no bruising; no adenopathy PSYCH: no evidence of depression; no anxiety; no agitation; no apparent hallucinations PAIN PSYCHIATRIC EXAM: GENERAL: alert, oriented to person, place, time JUDGMENT AND INSIGHT: intact APPEARANCE: neatly groomed DEMEANOR: coooperative, not hostile, mistrustful, preoccupied, or demanding ACTIVITY: normal, not hyperactive or hypoactive, no tremors, tics EYE CONTACT: normal SPEECH: normal, rate, volume, articulation, coherence, spontaneity MOOD: normal, without overt sadness, grief, anxiety, appropriate to situation IDEATION: normal and without suicidal or homicidal ideation MEMORY: intact ABNORMAL/NEW FINDINGS: NONE RADIOLOGY/DIAGNOSTICS: LABORATORY: CBC: Recent Labs 10/16/192042 WBC 5.28 RBC 4.61* HB 13.5* HCT 41.4 PLT 196 MCV 89.8 MCH 29.3 MPV 9.4 RDW 16.0* CMP: Recent Labs 10/16/192042 NA 141 K see below CHLOR 110* CO2 21* BUN 16 CREAT 0.94 GLUC 104* CA 8.6 ANION 10 Heme: No results for input(s): RETICP, ABSRETIC, LD, BRIAN, FE, TIBC, TRANSFERSAT in the last 24 hours. ASSESSMENT ACTIVE PROBLEM LIST Variants of Migraine, Not Elsewhere Classified, With Intractable Migraine, So Stated, Without Mention of Status Migrainosus Carpal Tunnel Syndrome Cervicalgia Myalgia and Myositis, Unspecified Iron Deficiency Anemia Weakness Lymphadenopathy Closed Displaced Fracture of Right Femoral Neck (Hcc) PLAN: Right femoral neck fracture that is post fall Remote history of left lower extremity DVT 11/2016, interrupted course of apixaban therapy No family history of DVT Right leg weakness, suspect more likely secondary to spinal stenosis Mathew Yanez M.D. Normal [facility] Hemogram/Diffon 10-16-2019 Abs Immature Grans 0.09 thou/cmm High 0.00-0.05 [facility] Comment on above: Performed By: #### R COVD #### [place] [address] Abs Neut (ANC) 3.73 thou/cmm Normal 1.78-5.38 [facility] Comment on above: Performed By: #### R COVD #### [place] [address] Abs. Baso 0.01 thou/cmm Normal 0.01-0.08 [facility] Comment on above: Performed By: #### R COVD #### [place] [address] Abs. [place] 0.31 thou/cmm Normal 0.30-0.82 [facility] Comment on above: Performed By: #### R COVD #### [place] [address] Basophils/100 WBC (Bld) 0.2 % Normal [facility] Comment on above: Performed By: #### R COVD #### [place] [address] Eosinophils (Bld) [#/Vol] 0.00 thou/cmm Low 0.04-0.54 [facility] Comment on above: Performed By: #### R COVD #### [place] [address] Eosinophils/100 WBC (Bld) 0.0 % Normal [facility] Comment on above: Performed By: #### R COVD #### [facility] [address] [place] [address] Erythrocyte distribution width (RBC) [Ratio] 16.0 % High 11.6-14.4 [facility] Comment on above: Performed By: #### R COVD #### [facility] [address] [place] [address] Hematocrit (Bld) [Volume fraction] 41.4 % Normal 40.1-51.0 [facility] Comment on above: Performed By: #### R COVD #### [facility] [address] [place] [address] Hemoglobin (Bld) [Mass/Vol] 13.5 g/dL Low 13.7-17.5 [facility] Comment on above: Performed By: #### R COVD #### [facility] [address] [place] [address] Immature Grans 1.70 % Normal [facility] Comment on above: Performed By: #### R COVD #### [facility] [address] [place] [address] Lymphocytes (Bld) [#/Vol] 1.14 thou/cmm Normal 0.84-2.85 [facility] Comment on above: Performed By: #### R COVD #### [place] [address] Lymphocytes/100 WBC (Bld) 21.6 % Normal [facility] Comment on above: Performed By: #### R COVD #### [facility] [address] [place] [address] MCH (RBC) [Entitic mass] 29.3 pg Normal 25.7-32.2 [facility] Comment on above: Performed By: #### R COVD #### [facility] [address] [place] [address] MCHC (RBC) [Mass/Vol] 32.6 % Normal 32.3-36.5 [facility] Comment on above: Performed By: #### R COVD #### [facility] [address] [place] [address] MCV (RBC) [Entitic vol] 89.8 fL Normal 83.2-95.6 [facility] Comment on above: Performed By: #### R COVD #### [facility] [address] [place], [place] [address] Monocytes/100 WBC (Bld) 5.9 % Normal [facility] Comment on above: Performed By: #### R COVD #### [facility] [address] [place], [place] [address] Platelet mean volume (Bld) [Entitic vol] 9.4 fL Normal 8.7-12.0 [facility] Comment on above: Performed By: #### R COVD #### [facility] [address] [place] [address] Platelets (Bld) [#/Vol] 196 thou/cmm Normal 141-365 [facility] Comment on above: Performed By: #### R COVD #### [place] [address] RBC (Bld) [#/Vol] 4.61 mil/cmm Low 4.63-6.08 [facility] Comment on above: Performed By: #### R COVD #### [facility] [address] [place] [address] RDW SD 51.8 fl High 36.1-45.8 [facility] Comment on above: Performed By: #### R COVD #### [place] [address] Seg Neutrophil 70.6 % Normal [facility] Comment on above: Performed By: #### R COVD #### [facility] [address] [place], [place] [address] WBC (Bld) [#/Vol] 5.28 thou/cmm Normal 4.23-9.07 [facility] Comment on above: Performed By: #### R COVD #### [facility] [address] [place] [address] Protimeon 10-16-2019 INR Coag (PPP) [Relative time] 0.98 {INR} Normal 0.90-1.30 [facility] Comment on above: Result Comment: Danielle min K Antagonist (VKA) Therapeutic Range: INR 2 to 3 (Target INR of 2.5) Note: For patients treated with VKA drugs, such as warfarin, the [employer] 2012 Guideline recommends a therapeutic INR range of 2 to 3 (target INR of 2.5). This recommendation includes high-risk patients with antiphospholipid syndrome with previous arterial or venous thromboembolism, current-generation mechanical or bioprosthetic aortic heart valve replacement. Note: Patients with mechanical aortic valve replacement and additional risk factors for thromboembolic events (atrial fibrillation, previous thromboembolism, LV dysfunction, hypercoagulable conditions) or an older generation mechanical AVR (i.e., ball in-Cage) or any mechanical MVR should have a INR therapeutic range of 2.5 to 3.5 target INR of 3). Kevin MCCORMICK, et al. Chest 2012; 141:7S-47S Jimbo BARKER et al. [facility] 2017; 70: 252-289 Performed By: #### B MP #### [facility] [address] [place] [address] PT Coag (PPP) [Time] 10.6 s Normal 9.7-13.0 [facility] Comment on above: Performed By: #### B MP #### [facility] [address] [place] [id number] XR FEMUR 2V AP/LAT RTon 10-02 XR FEMUR 2V AP/LAT RT * * *Final Report* * * DATE OF EXAM: Oct 16 2019 9:43PM [id number] - XR FEMUR 2V AP/LAT RT / PROCEDURE REASON: Fracture, femur * * * * Physician Interpretation * * * * EXAM TITLE: XR PELVIS 1V AP, XR FEMUR 2V AP/LAT RT DATE: 10/16/2019 COMPARISON: None. CLINICAL INDICATION/HISTORY: Status post fall, right hip pain TECHNIQUE: AP pelvis along with AP and crosstable lateral views of the right femur FINDINGS: (Combined): There is an acute right femoral neck fracture in severe varus alignment. No other acute bony abnormality is identified. There is severe tricompartmental osteoarthritis at the right knee. No significant arthritic change at either hip and no femoral head AVN. The sacroiliac joints are normal. There is a 7-8 mm calcification within the right lower quadrant of the abdomen which could possibly represent a calculus at the lower pole of the right kidney. IMPRESSION: Acute right femoral neck fracture in severe varus alignment. Criminalist Technician: HOLLY Transcribe Date/Time: Oct 16 2019 9:50P Dictated by : RONI MARVIN MD This examination was interpreted and the report reviewed and electronically signed by: RONI MARVIN MD on Oct 16 2019 9:53PM EST Normal [facility] XR PELVIS 1V APon 10-16-2019 XR PELVIS 1V AP * * *Final Report* * * DATE OF EXAM: Oct 16 2019 9:43PM [id number] - XR PELVIS 1V AP / PROCEDURE REASON: Hip trauma, fx suspected, initial exam * * * * Physician Interpretation * * * * EXAM TITLE: XR PELVIS 1V AP, XR FEMUR 2V AP/LAT RT DATE: 10/16/2019 COMPARISON: None. CLINICAL INDICATION/HISTORY: Status post fall, right hip pain TECHNIQUE: AP pelvis along with AP and crosstable lateral views of the right femur FINDINGS: (Combined): There is an acute right femoral neck fracture in severe varus alignment. No other acute bony abnormality is identified. There is severe tricompartmental osteoarthritis at the right knee. No significant arthritic change at either hip and no femoral head AVN. The sacroiliac joints are normal. There is a 7-8 mm calcification within the right lower quadrant of the abdomen which could possibly represent a calculus at the lower pole of the right kidney. IMPRESSION: Acute right femoral neck fracture in severe varus alignment. Criminalist Technician: HOLLY Transcribe Date/Time: Oct 16 2019 9:50P Dictated by : RONI MARVIN MD This examination was interpreted and the report reviewed and electronically signed by: RONI MARVIN MD on Oct 16 2019 9:53PM EST Normal [place] XR CHEST STANDARD (2 VW)on 0 07-15-[address] able cardiomegaly [facility], [place] EXAMINATION: TWO XRA Y VIEWS OF THE CHEST 07/15/2019 10:59 am COMPARISON: 05/07/2019 HISTORY: ORDERING SYSTEM PROVIDED HISTORY: Recurrent aspiration pneumonia (HCC) TECHNOLOGIST PROVIDED HISTORY: pneumonia RUL FINDINGS: The lungs are without acute focal process. There is no effusion or pneumothorax. The cardiomediastinal silhouette is stable. The osseous structures are stable. [facility] [place], p[place] Incoming Radiant Results From [employer] - 07/15/2019 11:12 AM EDT EXAMINATION: TWO XRAY VIEWS OF THE CHEST 07/15/2019 10:59 am COMPARISON: 05/07/2019 HISTORY: ORDERING SYSTEM PROVIDED HISTORY: Recurrent aspiration pneumonia (HCC) TECHNOLOGIST PROVIDED HISTORY: pneumonia RUL FINDINGS: The lungs are without acute focal process. There is no effusion or pneumothorax. The cardiomediastinal silhouette is stable. The osseous structures are stable. IMPRESSION: No acute process. Stable [facility]omegaly [facility] [place] Cult,Mycobacteriaon 05-16-19 20 Cult,Mycobacteria Specimen Description .BRONCHIAL ALVEOLAR LAVAGE .RIGHT MIDDLE LOBE Special Requests NOT REPORTED Direct Exam NO ACID FAST BACILLI SEEN (DIRECT SMEAR) NO ACID FAST BACILLI SEEN (CONCENTRATED SMEAR) Culture NO GROWTH 44 DAYS Report Status FINAL 05/16/2019 Normal [facility] Comment on above: Performed By: #### A FC #### [employer] [address] [place] [address] Mascara Molder: Alexander Crowder MD ND MODIFIED BARIUM SWALLOW W VIDEOOrdered By: Mychal Bautista on 05-16-2019 Transient laryngeal penetration with thin liquids but no tracheal aspiration. Please see separate speech pathology report for full discussion of findings and recommendations. [employer] Phone: EXAMINATION: MODIFIE D BARIUM SWALLOW WAS PERFORMED IN CONJUNCTION WITH [facility] PATHOLOGY SERVICES 05/16/2019 TECHNIQUE: Fluoroscopic evaluation of the swallowing mechanism was performed with multiple consistency of barium product. FLUOROSCOPY DOSE AND TYPE OR TIME AND EXPOSURES: Fluoroscopy time 1.7 minutes, 9 cine fluoroscopic images, dose 10.58 mGy COMPARISON: None HISTORY: ORDERING SYSTEM PROVIDED HISTORY: Pneumonia of right upper lobe due to infectious organism (HCC) TECHNOLOGIST PROVIDED HISTORY: pt chokes on solids and liquids FINDINGS: Early bolus spillover into the valleculae and minimal vallecular residue with more solid consistencies. Transient laryngeal penetration with thin liquids only. No tracheal aspiration. [employer] Phone: [place], [place] Incoming Radiant Results From [employer] - 05/16/2019 3:10 PM EST EXAMINATION: MODIFIED BARIUM SWALLOW WAS PERFORMED IN CONJUNCTION WITH [facility]ECH PATHOLOGY SERVICES 05/16/2019 TECHNIQUE: Fluoroscopic evaluation of the swallowing mechanism was performed with multiple consistency of barium product. FLUOROSCOPY DOSE AND TYPE OR TIME AND EXPOSURES: Fluoroscopy time 1.7 minutes, 9 cine fluoroscopic images, dose 10.58 mGy COMPARISON: None HISTORY: ORDERING SYSTEM PROVIDED HISTORY: Pneumonia of right upper lobe due to infectious organism (HCC) TECHNOLOGIST PROVIDED HISTORY: pt chokes on solids and liquids FINDINGS: Early bolus spillover into the valleculae and minimal vallecular residue with more solid consistencies. Transient laryngeal penetration with thin liquids only. No tracheal aspiration. IMPRESSION: Transient laryngeal penetration with thin liquids but no tracheal aspiration. Please see separate speech pathology report for full discussion of findings and recommendations. [employer]: Cult,Funguson 04-11-2019 Cult,Fungus Specimen Description .BRONCHIAL ALVEOLAR LAVAGE .RIGHT MIDDLE LOBE Special Requests NOT REPORTED Culture YEAST ISOLATED, ID TO FOLLOW NINA ALBICANS NINA GLABRATA Report Status FINAL 04/11/2019 Normal [facility] Comment on above: Performed By: #### F C #### [employer] [facility] [place] [address] Mascara Molder: Alexander Crowder MD Viral Respiratory Culton Viral Respiratory Cult Specimen Description .BRONCHIAL ALVEOLAR LAVAGE .RIGHT MIDDLE LOBE Special Requests NOT REPORTED Culture NEGATIVE. No Herpes Simplex Virus detected by Enzyme Linked Virus Inducible System culture. at day 2 NEGATIVE for Influenza A and B, Para influenza 1,2,3, Adenovirus and RSV. at day 2 Negative results do not preclude respiratory virus infection and should not be used as the sole basis for diagnosis, treatment or other management decisions. NEGATIVE for Cytomegalovirus at day 3 NEGATIVE for Enterovirus at day 5 Report Status FINAL 04/07/2019 [facility] Comment on above: Performed By: #### V RESPC #### [employer] [facility] [place] [address] Mascara Molder: Alexander Crowder MD CT Chest W Contraston 2018 1. Resolving lateral segment middle lobe consolidative density. Residual density may represent subsegmental atelectasis or residual of prior pneumonitis. 2. Trace bilateral pleural effusion. [facility] [place] EXAMINATION: CT OF T HE CHEST WITH CONTRAST 04/06/2019 1:01 pm TECHNIQUE: CT of the chest was performed with the administration of intravenous contrast. Multiplanar reformatted images are provided for review. Dose modulation, iterative reconstruction, and/or weight based adjustment of the mA/kV was utilized to reduce the radiation dose to as low as reasonably achievable. COMPARISON: 01/28/2019 HISTORY: ORDERING SYSTEM PROVIDED HISTORY: Pneumonia of right middle lobe due to infectious organism (HCC) TECHNOLOGIST PROVIDED HISTORY: persistent right middle lobe infiltrate. FINDINGS: Mediastinum: Cardiomegaly. Major vessels enhance satisfactorily. No significant mediastinal, hilar or axillary lymphadenopathy. Thyroid gland grossly normal. Esophagus unremarkable. Lungs/pleura: Resolving lateral segment middle lobe consolidative opacity much smaller representing residual of prior pneumonitis or subsegmental atelectasis. Trace bilateral pleural effusions. Generalized hazy ground-glass attenuation of the lungs may reflect expiratory phase imaging and no interstitial edema. No pneumothorax. Upper Abdomen: No acute process. No suspicious lesions. Soft Tissues/Bones: No acute abnormality of the bones. The superficial soft tissues show no significant abnormalities. [place], [place], pn Incoming Radiant Results From [employer] - 04/06/2019 3:03 PM EST EXAMINATION: CT OF THE CHEST WITH CONTRAST 04/06/2019 1:01 pm TECHNIQUE: CT of the chest was performed with the administration of intravenous contrast. Multiplanar reformatted images are provided for review. Dose modulation, iterative reconstruction, and/or weight based adjustment of the mA/kV was utilized to reduce the radiation dose to as low as reasonably achievable. COMPARISON: 01/28/2019 HISTORY: ORDERING SYSTEM PROVIDED HISTORY: Pneumonia of right middle lobe due to infectious organism (HCC) TECHNOLOGIST PROVIDED HISTORY: persistent right middle lobe infiltrate. FINDINGS: Mediastinum: Cardiomegaly. Major vessels enhance satisfactorily. No significant mediastinal, hilar or axillary lymphadenopathy. Thyroid gland grossly normal. Esophagus unremarkable. Lungs/pleura: Resolving lateral segment middle lobe consolidative opacity much smaller representing residual of prior pneumonitis or subsegmental atelectasis. Trace bilateral pleural effusions. Generalized hazy ground-glass attenuation of the lungs may reflect expiratory phase imaging and no interstitial edema. No pneumothorax. Upper Abdomen: No acute process. No suspicious lesions. Soft Tissues/Bones: No acute abnormality of the bones. The superficial soft tissues show no significant abnormalities. IMPRESSION: 1. Resolving lateral segment middle lobe consolidative density. Residual density may represent subsegmental atelectasis or residual of prior pneumonitis. 2. Trace bilateral pleural effusion. [place], [place] Lipid Panelon 04-06-2019 Cholesterol [Mass/Vol] 170 mg/dL <200 [place], [place] Comment on above: Cholesterol Guidelines: <200 Desirable 200-240 Borderline >240 Undesirable Cholesterol in HDL [Mass/Vol] 68 mg/dL >40 [place], [place] Comment on above: HDL Guidelines: <40 Undesirable 40-59 Borderline >59 Desirable Cholesterol in LDL [Mass/Vol] 77 mg/dL 0 - 130 mg/dL [place], [place] Comment on above: LDL Guidelines: <100 Desirable 100-129 Near to/above Desirable 130-159 Borderline >159 Undesirable Direct (measured) LDL and calculated LDL are not interchangeable tests. Cholesterol in VLDL [Mass/Vol] NOT REPORTED 1 - 30 mg/dL [place], [place] Cholesterol.total/Cho lesterol in HDL [Mass ratio] 2.5 {ratio} <5 [place], [place] Triglyceride [Mass/Vol] 124 mg/dL <150 [place], [place] Comment on above: Triglyceride Guidelines: <150 Desirable 150-199 Borderline 200-499 High >499 Very high Based on AHA Guidelines for fasting triglyceride, February 2012. Cult,Respiratoryon 9 Cult,Respiratory Specimen Description .BRONCHIAL ALVEOLAR LAVAGE .RIGHT MIDDLE LOBE Special Requests NOT REPORTED Direct Exam MODERATE NEUTROPHILS MANY GRAM POSITIVE COCCI IN CLUSTERS RARE BUDDING YEAST CELLS SEEN RARE GRAM POSITIVE RODS FEW EPITHELIAL CELLS Culture >100,000 CFU/ML STAPHYLOCOCCUS SPECIES, COAGULASE NEGATIVE Report Status FINAL 04/03/2019 SUSCEPTIBILITY Organism STAPHYLOCOCCUS SPECIES COAGULASE NEGATIVE Method VILMA Penicillin NOT REPORTED Cefoxitin Screen NOT REPORTED Ciprofloxacin NOT REPORTED Clindamycin <=0.25 SUSCEPTIBLE Erythromycin >=8 RESISTANT Gentamicin <=0.5 SUSCEPTIBLE Gentamicin is used only in combination with other active agents that test susceptible. Induced Clind Resist POSITIVE Levofloxacin >=8 RESISTANT Linezolid NOT REPORTED Moxifloxacin NOT REPORTED Nitrofurantoin NOT REPORTED Oxacillin 1 RESISTANT Synercid NOT REPORTED Rifampin NOT REPORTED Tetracycline <=1 SUSCEPTIBLE Tigecycline NOT REPORTED Trimethoprim/Sulfa <=10 SUSCEPTIBLE Vancomycin <=0.5 SUSCEPTIBLE Normal [facility] Comment on above: Performed By: #### R ESPC #### [facility] [address] [place] [address] [id number] Mascara Molder: Alexander Crowder MD [employer] Stainon 04-01-2019 Direct Exam DUPLICATE ORDER [place], [place] Special Requests NOT REPORTED [place], [place] Specimen Description .BRONCHIAL ALVEOLAR LAVAGE .RIGHT MIDDLE LOBE [facility] [place] Non-Executive Vice President Of Sales Cytologyon 9 Case No: [id number] Normal [facility] Comment on above: Performed By: #### N GARMENT SUPERVISOR #### [facility] [address] [place] [address] [id number] Mascara Molder: Alexander Crowder MD Specimen Description .BRONCHIAL ALVEOLAR LAVAGE Normal [facility] Comment on above: Result Comment: .RIG HT MIDDLE LOBE Performed By: #### N GARMENT SUPERVISOR #### [facility] [address] [place] [address] [id number] Mascara Molder: Alexander Crowder MD Stain,Acid-faston 04-01-2019 Stain,Acid-fast Specimen Description .BRONCHIAL ALVEOLAR LAVAGE .RIGHT MIDDLE LOBE Special Requests NOT REPORTED Direct Exam DUPLICATE ORDER AN ACID FAST SMEAR SHOULD NEVER BE ORDERED IF AN ACID FAST CULTURE IS ALSO ORDERED THE SMEAR IS ALWAYS INCLUDED WITH THE CULTURE Report Status FINAL 04/01/2019 Normal [facility] Comment on above: Performed By: #### A FS #### [facility] [employer] [address] [place] [address] [id number] Mascara Molder: Alexander Crowder MD Surgical Pathologyon 019 Surgical Pathology (NOTE) [id number] [facility] CONSULTING PATHOLOGISTS [facility] ANATOMIC PATHOLOGY [address] [place] [id number] SURGICAL PATHOLOGY CONSULTATION Patient Name: VELIA BAGLEY [facility] Rec: [id number] Path Number: [id number] Collected: 04/01/2019 Received: 04/01/2019 Reported: 04/04/2019 16:50 -- Diagnosis -- BRONCHOALVEOLAR LAVAGE (RML): - NO MORPHOLOGIC PNEUMOCYSTIS DETECTED. - SMALL NUMBERS OF FUNGAL YEASTS NOTED. - NO VIRAL INCLUSIONS OR NEOPLASTIC CELLS DETECTED. - NO INCREASED SIDEROPHAGES DETECTED. Viviana Crowder M.D. Electronically Signed [facility]/04/04/2019 Source of Specimen 1: BAL OF RML FOR IMMUNOCOMPROMISED PROTOCOL Gross Description BAL OF RML cloudy bloody mucoid fluid totals 5 mL. Cytospin, ThinPrep, and cell block are performed for which Diff Quik, Pap, and AIDEN stains are prepared. In addition, per protocol, control-reactive silver stain and iron stain are performed. Microscopic Description Differential: 10% macrophages; 93% neutrophils; 7% lymphocytes. Iron stain is negative for increased siderophages. Silver stain shows no morphologic pneumocystis and small numbers of yeasts, morphologically consistent with Nina. Statt results telephoned to Dr. Fulton, 04/01/2019, 1827 ([facility]). Normal [facility] Comment on above: Performed By: #### P PPVS #### [facility] [employer] [address] [place] [address] Mascara Molder: Alexander Crowder MD Ammoniaon 03-22-2019 Ammonia (P) [Mass/Vol] 29 umol/L 16 - 60 umol/L [place] Comprehensive Metabolic Pane nanette 03-22-2019 Albumin [Mass/Vol] 4.1 g/dL 3.5 - 5.2 g/dL [place] Albumin/Globulin [Mass ratio] 1.5 {ratio} [place] ALP [Catalytic activity/Vol] 143 U/L High 40 - 129 U/L [place] ALT [Catalytic activity/Vol] 8 U/L 5 - 41 U/L [place] Anion gap [Moles/Vol] 13 mmol/L 9 - 17 mmol/L [place] AST [Catalytic activity/Vol] 9 U/L <40 [place] Bilirubin Ql (U) 0.28 mg/dL Low 0.3 - 1.2 mg/dL [place] Bun/Cre Ratio 13 [place] Calcium [Mass/Vol] 8.8 mg/dL 8.6 - 10. 4 mg/dL [place] Chloride [Moles/Vol] 105 mmol/L 98 - 10 7 mmol/L [place] CO2 [Moles/Vol] 20 mmol/L 20 - 31 mmol/L [place] Creatinine [Mass/Vol] 1.01 mg/dL 0.7 - 1.2 mg/dL [place] GFR >60 >60 mL/min [place] GFR Non- >60 >60 mL/min [place] Glucose [Mass/Vol] 142 mg/dL High 70 - 99 mg/dL [place] Interpretation and review of laboratory results Abnormal [place] Potassium [Moles/Vol] 3.7 mmol/L 3.7 - 5.3 mmol/L [place] Protein [Mass/Vol] 6.8 g/dL 6.4 - 8.3 g/dL [place] Sodium [Moles/Vol] 138 mmol/L 135 - 144 mmol/L [place] Urea nitrogen [Mass/Vol] 13 mg/dL 6 - 20 mg/dL [place] Metabolic Panelon 03-22-2019 GFR/1.73 sq M predicted among non-blacks MDRD (S/P/Bld) [Vol rate/Area] [place] Comment on above: Stage 1: Some kidney damage normal GFR Stage 2: Mild kidney damage GFR 60-89 Stage 3: Moderate kidney damage GFR 30-59 Stage 4: Severe kidney damage GFR 15-29 Stage 5: Severe kidney damage GFR <15 ESRD - chronic treatment by dialysis or transplant Average GFR for 50-5 9 years old: 93 mL/min/1.73sq m Chronic Kidney Disease: <60 mL/min/1.73sq m Kidney failure: <15 mL/min/1.73sq m eGFR calculated using average adult body mass. Additional eGFR calculator available at: http://www.[employer] Hit[employer]./multiple_crcl_2012.htm XR CHEST STANDARD (2 VW)on 05-22-2018 Persistent right mid dle lobe opacity. CT chest with contrast is recommended for further evaluation. [facility] EXAMINATION: TWO XRA Y VIEWS OF THE CHEST 03/22/2019 3:05 pm COMPARISON: Chest radiograph 01/28/2019 HISTORY: ORDERING SYSTEM PROVIDED HISTORY: Pneumonia of right middle lobe due to infectious organism (HCC) TECHNOLOGIST PROVIDED HISTORY: Right middle lobe pneumonia FINDINGS: Normal heart size. Normal pulmonary vascularity. There is a persistent right middle lobe opacity. No new focal consolidation. No evidence of pleural effusion or pneumothorax. No acute osseous abnormality. [employer] [place], [place] Incoming Radiant Results From [employer] - 03/22/2019 3:14 PM EST EXAMINATION: TWO XRAY VIEWS OF THE CHEST 03/22/2019 3:05 pm COMPARISON: Chest radiograph 01/28/2019 HISTORY: ORDERING SYSTEM PROVIDED HISTORY: Pneumonia of right middle lobe due to infectious organism (HCC) TECHNOLOGIST PROVIDED HISTORY: Right middle lobe pneumonia FINDINGS: Normal heart size. Normal pulmonary vascularity. There is a persistent right middle lobe opacity. No new focal consolidation. No evidence of pleural effusion or pneumothorax. No acute osseous abnormality. IMPRESSION: Persistent right middle lobe opacity. CT chest with contrast is recommended for further evaluation. [facility] XR CHEST STANDARD (2 VW)on 0 01-12-2019 Right middle lobe pneumonia. Follow-up is recommended to confirm complete resolution. [facility] EXAMINATION: TWO XRA Y VIEWS OF THE CHEST 01/12/2019 2:38 pm COMPARISON: 12/26/2018 HISTORY: ORDERING SYSTEM PROVIDED HISTORY: Cough TECHNOLOGIST PROVIDED HISTORY: cough, shortness of breath FINDINGS: Stable heart size without evidence of vascular congestion. There is patchy infiltrate involving the right middle lobe. Follow-up is recommended to confirm complete resolution and rule out any underlying lesion/pathology. Lungs are otherwise clear. Mild degenerative changes of the spine with no acute osseous abnormality. No significant pleural effusions are seen. [employer] [place], [place] Incoming Radiant Results From [employer] - 01/12/2019 3:08 PM EDT EXAMINATION: TWO XRAY VIEWS OF THE CHEST 01/12/2019 2:38 pm COMPARISON: 12/26/2018 HISTORY: ORDERING SYSTEM PROVIDED HISTORY: Cough TECHNOLOGIST PROVIDED HISTORY: cough, shortness of breath FINDINGS: Stable heart size without evidence of vascular congestion. There is patchy infiltrate involving the right middle lobe. Follow-up is recommended to confirm complete resolution and rule out any underlying lesion/pathology. Lungs are otherwise clear. Mild degenerative changes of the spine with no acute osseous abnormality. No significant pleural effusions are seen. IMPRESSION: Right middle lobe pneumonia. Follow-up is recommended to confirm complete resolution. [place] Basic Metabolic Panelon 12-03 Anion gap [Moles/Vol] 13 mmol/L 9 - 17 mmol/L [place] Bun/Cre Ratio 19 [place] Calcium [Mass/Vol] 8.7 mg/dL 8.6 - 10. 4 mg/dL [place] Chloride [Moles/Vol] 108 mmol/L High 98 - 10 7 mmol/L [place] CO2 [Moles/Vol] 20 mmol/L 20 - 31 mmol/L [place] Creatinine [Mass/Vol] 0.99 mg/dL 0.7 - 1.2 mg/dL [place] GFR >60 >60 mL/min [place] GFR Non- >60 >60 mL/min [place] Glucose [Mass/Vol] 97 mg/dL 70 - 99 mg/dL [place] Interpretation and review of laboratory results Abnormal [place] Potassium [Moles/Vol] 3.7 mmol/L 3.7 - 5.3 mmol/L [place] Sodium [Moles/Vol] 141 mmol/L 135 - 144 mmol/L [place] Urea nitrogen [Mass/Vol] 19 mg/dL 6 - 20 mg/dL [place] Brain Natriuretic Peptideon 12-26-2018 Natriuretic peptide B (Bld) [Mass/Vol] Pro-BNP Reference Range: [place] Comment on above: Rule Out: <300 Denise Zone: Age <50 300-450 Age 50-75 300-900 Age >75 300-1800 Usually represents mild to moderate HF but other cardiopulmonary causes cannot be ruled out. Rule In: Age <50 >450 Age 50-75 >900 Age >75 >1800 Natriuretic peptide B (Bld) [Mass/Vol] 149 pg/mL <300 [place] Comment on above: Pro-BNP results patircia ot be compared to BNP results. CBC Auto Differentialon 12-03 Basophils (Bld) [#/Vol] 0.03 10*3/uL [place] Basophils/100 WBC (Bld) 0 % 0 - 2 % [place] Differential Type NOT REPORTED [place] Eosinophils (Bld) [#/Vol] 10*3/uL [place] Eosinophils/100 WBC (Bld) 0 % Low 1 - 4 % [place] Erythrocyte distribution width (RBC) [Ratio] 14.1 % 11.8 - 14.4 % [place] Hematocrit (Bld) [Volume fraction] 42.1 % 40.7 - 50.3 % [place] Hemoglobin (Bld) [Mass/Vol] 13.7 g/dL 13 - 17 g/dL [place] Immature granulocytes (Bld) [#/Vol] 2 % High 0 [place] Immature granulocytes (Bld) [#/Vol] 0.24 10*3/uL [place] Interpretation and review of laboratory results Abnormal [place] Lymphocytes (Bld) [#/Vol] 1.50 10*3/uL [place] Lymphocytes/100 WBC (Bld) 10 % Low 24 - 43 % [place] MCH (RBC) [Entitic mass] 29.3 pg 25.2 - 33.5 pg [place] MCHC (RBC) [Mass/Vol] 32.5 g/dL 28.4 - 34.8 g/dL [place] MCV (RBC) [Entitic vol] 90.1 fL 82.6 - 102.9 fL [place] Monocytes (Bld) [#/Vol] 0.90 10*3/uL [place] Monocytes/100 WBC (Bld) 6 % 3 - 12 % [place] Platelet mean volume (Bld) [Entitic vol] 8.9 fL 8.1 - 13.5 fL [place] Platelets (Bld) [#/Vol] 240 10*3/uL [place] Platelets (Bld) [#/Vol] NOT REPORTED [place] RBC (Bld) [#/Vol] 4.67 10*6/uL 4.21 - 5.7 7 m/uL [place] RBC morphology finding Nom (Bld) NOT REPORTED [place] Segmented neutrophils/100 WBC (Bld) 83 % High 36 - 65 % [place] Segs Absolute 12.93 [place] WBC (Bld) [#/Vol] 0.0 10*3/uL 0.0 per 10 0 WBC [place] WBC (Bld) [#/Vol] 15.6 10*3/uL [place] WBC Morphology NOT REPORTED [place], [place] Lactate, Sepsison 12-26-2018 Lactic Acid, Sepsis 1.5 mmol/L 0.5 - 1. 9 mmol/L [place] Lactic Acid, Sepsis, Whole Blood NOT REPORTED 0.5 - 1.9 mmol/L [place] Lactic Acid, Sepsis 1.3 mmol/L 0.5 - 1. 9 mmol/L [place] Lactic Acid, Sepsis, Whole Blood NOT REPORTED 0.5 - 1.9 mmol/L [place] Metabolic Panelon 12-26-2018 GFR/1.73 sq M predicted among non-blacks MDRD (S/P/Bld) [Vol rate/Area] [place] Comment on above: Average GFR for 50-5 9 years old: 93 mL/min/1.73sq m Chronic Kidney Disease: <60 mL/min/1.73sq m Kidney failure: <15 mL/min/1.73sq m eGFR calculated using average adult body mass. Additional eGFR calculator available at: http://www.[employer]ream[employer]ize/multiple_crcl_2012.htm Stage 1: Some kidney damage normal GFR Stage 2: Mild kidney damage GFR 60-89 Stage 3: Moderate kidney damage GFR 30-59 Stage 4: Severe kidney damage GFR 15-29 Stage 5: Severe kidney damage GFR <15 ESRD - chronic treatment by dialysis or transplant Troponinon 12-26-2018 Troponin I.cardiac [Mass/Vol] [place] Comment on above: Reference Range: <0.03 Within reference range. 0.03-0.09 Possible myocardial damage. Repeat at appropriate intervals to rule out chronic elevation. >= 0.10 Indicative of myocardial damage. Patients with high levels of Biotin oral intake (i.e >5mg/day) may have falsely decreased Troponin T levels. Samples collected within 8 hours of biotin intake may require additional information for diagnosis. Troponin T.cardiac [Mass/Vol] ug/L <0.03 ng/mL [place] Comment on above: Troponin T results c annot be compared to Troponin-I results. Troponin, High Sensitivity NOT REPORTED 0 - 22 ng/L [place] XR CHEST PORTABLEon 12-27-19 19 [place], [place] Incoming Radiant Results From [employer] - 12/26/2018 1:31 PM EDT EXAMINATION: ONE XRAY VIEW OF THE CHEST 12/26/2018 12:56 pm COMPARISON: None. HISTORY: ORDERING SYSTEM PROVIDED HISTORY: dyspnea TECHNOLOGIST PROVIDED HISTORY: dyspnea FINDINGS: Single portable frontal view of the chest is submitted for review. The cardiac silhouette is borderline enlarged. Lung parenchyma is clear without focal airspace consolidation, sizeable pleural effusion, or pneumothorax. Trachea is midline. Visualized osseous structures and soft tissues are grossly intact. IMPRESSION: Borderline cardiomegaly. No evidence for acute cardiopulmonary pathology. [place] Borderline cardiomeg natalia. No evidence for acute cardiopulmonary pathology. [place] EXAMINATION: ONE XRA Y VIEW OF THE CHEST 12/26/2018 12:56 pm COMPARISON: None. HISTORY: ORDERING SYSTEM PROVIDED HISTORY: dyspnea TECHNOLOGIST PROVIDED HISTORY: dyspnea FINDINGS: Single portable frontal view of the chest is submitted for review. The cardiac silhouette is borderline enlarged. Lung parenchyma is clear without focal airspace consolidation, sizeable pleural effusion, or pneumothorax. Trachea is midline. Visualized osseous structures and soft tissues are grossly intact. [place] CBC Auto Differentialon 12-03 Basophils (Bld) [#/Vol] 10*3/uL [place] Basophils/100 WBC (Bld) 0 % 0 - 2 % [place] Differential Type NOT REPORTED [place] Eosinophils (Bld) [#/Vol] 10*3/uL [place] Eosinophils/100 WBC (Bld) 0 % Low 1 - 4 % [place] Erythrocyte distribution width (RBC) [Ratio] 13.9 % 11.8 - 14.4 % [place] Hematocrit (Bld) [Volume fraction] 42.5 % 40.7 - 50.3 % [place] Hemoglobin (Bld) [Mass/Vol] 13.6 g/dL 13 - 17 g/dL [place] Immature granulocytes (Bld) [#/Vol] 1 % High 0 [place] Immature granulocytes (Bld) [#/Vol] 0.19 10*3/uL [place] Interpretation and review of laboratory results Abnormal [place] Lymphocytes (Bld) [#/Vol] 1.05 10*3/uL Low [place] Lymphocytes/100 WBC (Bld) 8 % Low 24 - 43 % [place] MCH (RBC) [Entitic mass] 29.1 pg 25.2 - 33.5 pg [place] MCHC (RBC) [Mass/Vol] 32.0 g/dL 28.4 - 34.8 g/dL [place] MCV (RBC) [Entitic vol] 91.0 fL 82.6 - 102.9 fL [place] Monocytes (Bld) [#/Vol] 0.40 10*3/uL [place] Monocytes/100 WBC (Bld) 3 % 3 - 12 % [place] Platelet mean volume (Bld) [Entitic vol] 8.8 fL 8.1 - 13.5 fL [place] Platelets (Bld) [#/Vol] NOT REPORTED [place] Platelets (Bld) [#/Vol] 241 10*3/uL [place] RBC (Bld) [#/Vol] 4.67 10*6/uL 4.21 - 5.7 7 m/uL [place] RBC morphology finding Nom (Bld) NOT REPORTED [place] Segmented neutrophils/100 WBC (Bld) 88 % High 36 - 65 % [place] Segs Absolute 12.03 [place] WBC (Bld) [#/Vol] 13.7 10*3/uL [place] WBC (Bld) [#/Vol] 0.0 10*3/uL 0.0 per 10 0 WBC [place] WBC Morphology NOT REPORTED [place] CT ABDOMEN PELVIS W IV CONTR AST Additional Contrast? Oralon 12-21-2018 Lymphocytes (Bld) [#/Vol] *No acute intra-abdominal process is noted. No inguinal lymphadenopathy. [place] EXAMINATION: CT OF [place] MORE ABDOMEN AND PELVIS WITH CONTRAST 12/21/2018 1:46 pm TECHNIQUE: CT of the abdomen and pelvis was performed with the administration of intravenous contrast. Multiplanar reformatted images are provided for review. Dose modulation, iterative reconstruction, and/or weight based adjustment of the mA/kV was utilized to reduce the radiation dose to as low as reasonably achievable. COMPARISON: None. HISTORY: ORDERING SYSTEM PROVIDED HISTORY: Lymphadenopathy, inguinal TECHNOLOGIST PROVIDED HISTORY: lymphadenopathy FINDINGS: Lower Chest: Mild lower lobe atelectasis. No pericardial or pleural effusions. Organs: Liver, portal vein, gallbladder, spleen, pancreas and adrenal glands all appear unremarkable. Kidneys demonstrate no evidence of enhancing renal mass or hydronephrosis. Abdominal aorta appears normal in caliber. GI/Bowel: Stomach is grossly unremarkable. Small bowel appears nondilated. Oral contrast reached the distal small bowel. Appendix normal. No acute colonic abnormality. Pelvis: Urinary bladder is grossly unremarkable. Prostate gland is normal in size. Peritoneum/Retroperitone um: No free air, free fluid or lymphadenopathy. Specifically, no inguinal lymphadenopathy. Bones/Soft Tissues: Abdominal wall demonstrates no acute findings. Osseous structures demonstrate degenerative change. [place], [place] Incoming Radiant Results From [employer] - 12/21/2018 3:11 PM EDT EXAMINATION: CT OF THE ABDOMEN AND PELVIS WITH CONTRAST 12/21/2018 1:46 pm TECHNIQUE: CT of the abdomen and pelvis was performed with the administration of intravenous contrast. Multiplanar reformatted images are provided for review. Dose modulation, iterative reconstruction, and/or weight based adjustment of the mA/kV was utilized to reduce the radiation dose to as low as reasonably achievable. COMPARISON: None. HISTORY: ORDERING SYSTEM PROVIDED HISTORY: Lymphadenopathy, inguinal TECHNOLOGIST PROVIDED HISTORY: lymphadenopathy FINDINGS: Lower Chest: Mild lower lobe atelectasis. No pericardial or pleural effusions. Organs: Liver, portal vein, gallbladder, spleen, pancreas and adrenal glands all appear unremarkable. Kidneys demonstrate no evidence of enhancing renal mass or hydronephrosis. Abdominal aorta appears normal in caliber. GI/Bowel: Stomach is grossly unremarkable. Small bowel appears nondilated. Oral contrast reached the distal small bowel. Appendix normal. No acute colonic abnormality. Pelvis: Urinary bladder is grossly unremarkable. Prostate gland is normal in size. Peritoneum/Retroperitone um: No free air, free fluid or lymphadenopathy. Specifically, no inguinal lymphadenopathy. Bones/Soft Tissues: Abdominal wall demonstrates no acute findings. Osseous structures demonstrate degenerative change. IMPRESSION: *No acute intra-abdominal process is noted. No inguinal lymphadenopathy. [place] Comprehensive Metabolic Pane nanette 12-21-2018 Albumin [Mass/Vol] 4.2 g/dL 3.5 - 5.2 g/dL [place] Albumin/Globulin [Mass ratio] 1.6 {ratio} [place] ALP [Catalytic activity/Vol] 109 U/L 40 - 129 U/L [place] ALT [Catalytic activity/Vol] 10 U/L 5 - 41 U/L [place] Anion gap [Moles/Vol] 11 mmol/L 9 - 17 mmol/L [place] AST [Catalytic activity/Vol] 10 U/L <40 [place] Bilirubin Ql (U) 0.25 mg/dL Low 0.3 - 1.2 mg/dL [place] Bun/Cre Ratio 17 [place] Calcium [Mass/Vol] 8.7 mg/dL 8.6 - 10. 4 mg/dL [place] Chloride [Moles/Vol] 108 mmol/L High 98 - 10 7 mmol/L [place] CO2 [Moles/Vol] 19 mmol/L Low 20 - 31 mmol/L [place] Creatinine [Mass/Vol] 0.88 mg/dL 0.7 - 1.2 mg/dL [place] GFR >60 >60 mL/min [place], [place] GFR Non- >60 >60 mL/min [place] Glucose [Mass/Vol] 196 mg/dL High 70 - 99 mg/dL [place] Interpretation and review of laboratory results Abnormal [place] Potassium [Moles/Vol] 3.8 mmol/L 3.7 - 5.3 mmol/L [place] Protein [Mass/Vol] 6.8 g/dL 6.4 - 8.3 g/dL [place] Sodium [Moles/Vol] 138 mmol/L 135 - 144 mmol/L [place] Urea nitrogen [Mass/Vol] 15 mg/dL 6 - 20 mg/dL [place] Lactate Dehydrogenaseon 12-03 LD 166 U/L 135 - 225 U/L [place] Metabolic Panelon 12-21-2018 GFR/1.73 sq M predicted among non-blacks MDRD (S/P/Bld) [Vol rate/Area] [place] Comment on above: Average GFR for 50-5 9 years old: 93 mL/min/1.73sq m Chronic Kidney Disease: <60 mL/min/1.73sq m Kidney failure: <15 mL/min/1.73sq m eGFR calculated using average adult body mass. Additional eGFR calculator available at: http://www.[employer]./multiple_crcl_2012.htm Stage 1: Some kidney damage normal GFR Stage 2: Mild kidney damage GFR 60-89 Stage 3: Moderate kidney damage GFR 30-59 Stage 4: Severe kidney damage GFR 15-29 Stage 5: Severe kidney damage GFR <15 ESRD - chronic treatment by dialysis or transplant BASIC METABOLIC PANELon 04-04 Calcium mass conc 8.5 mg/dL Low 8.6-10.3 [facility] Comment on above: Order Comment: No: D o not add to previous draw Performed By: #### [id number] ####[facility] [place] [address], [facility] Chloride molar conc 108 mmol/L High 98-107 [facility] Comment on above: Order Comment: No: D o not add to previous draw Performed By: #### [id number] ####[facility] [place] [address], [place] CO2 molar conc 19 mmol/L Low 21-31 [facility] Comment on above: Order Comment: No: D o not add to previous draw Performed By: #### [id number] ####[facility] [place] [address], [facility] Creatinine mass conc 0.81 mg/dL Normal 0.70-1.30 [facility] Comment on above: Order Comment: No: D o not add to previous draw Performed By: #### [id number] ####[facility] [place] [address], [facility] GFR/1.73 sq M predicted among blacks MDRD vol rate/area (S/P/Bld) mL/min/{1.73_m2} Normal >60 [facility] Comment on above: Order Comment: No: D o not add to previous draw Performed By: #### [id number] ####[facility] [place] [address], [facility] GFR/1.73 sq M predicted among non-blacks MDRD vol rate/area (S/P/Bld) mL/min/{1.73_m2} Normal >60 [facility] Comment on above: Order Comment: No: D o not add to previous draw Performed By: #### [id number] ####[facility] [place] [address], [place] Glucose mass conc 105 mg/dL High 70-100 [facility] Comment on above: Order Comment: No: D o not add to previous draw Performed By: #### [id number] ####[facility] [place] [address], [facility] Potassium molar conc 3.8 mmol/L Normal 3.5-5.1 [facility] Comment on above: Order Comment: No: D o not add to previous draw Performed By: #### [id number] ####[facility] [place] [address], [facility] Sodium molar conc 134 mmol/L Low 136-145 [facility] Comment on above: Order Comment: No: D o not add to previous draw Performed By: #### [id number] ####[facility] [place] [address], [facility] Urea nitrogen mass conc 10 mg/dL Normal 7-25 [facility] Comment on above: Order Comment: No: D o not add to previous draw Performed By: #### [id number] ####[facility] [facility] CBC COMPLETE BLOOD COUNTon 1 06-29-2017 Erythrocyte distribution width Auto Ratio (RBC) 13.5 % Normal 11.5-15.0 [facility] Comment on above: Order Comment: No: D o not add to previous draw Performed By: #### [id number] ####[facility] Hematocrit Auto Volume Fraction (Bld) 34.5 % Low 39.0-50.0 [facility] Comment on above: Order Comment: No: D o not add to previous draw Performed By: #### [id number] ####[facility] [facility] [place] [address], [facility] Hemoglobin mass conc (Bld) 11.4 g/dL Low 13.0-17.0 [facility] Comment on above: Order Comment: No: D o not add to previous draw Performed By: #### 8 5123 ####[facility] [facility].[address] MCH Auto Entitic mass (RBC) 29.2 pg Normal 27.0-33.0 [facility] Comment on above: Order Comment: No: D o not add to previous draw Performed By: #### 8 5123 ####[facility] [facility].[address] MCHC Auto mass conc (RBC) 33.0 g/dL Normal 32.0-35.0 [facility] Comment on above: Order Comment: No: D o not add to previous draw Performed By: #### 8 5123 ####[facility] [facility].[address] MCV Auto Entitic volume (RBC) 88.5 fL Normal 82.0-98.0 [facility] Comment on above: Order Comment: No: D o not add to previous draw Performed By: #### 8 5123 ####[facility] Nucleated RBC/100 WBC Ratio (Bld) 0 % Normal 0-0 [facility] Comment on above: Order Comment: No: D o not add to previous draw Performed By: #### 8 5123 ####[place] [address] PLAT CNT 256 10*3/uL Normal 150-400 [facility] Comment on above: Order Comment: No: D o not add to previous draw Performed By: #### 8 5123 ####[facility] [place] [address], [facility] RBC Auto #/vol (Bld) 3.90 10*6/uL Low 4.20-5.70 Th e [facility] Comment on above: Order Comment: No: D o not add to previous draw Performed By: #### 8 5123 ####[facility] [facility].[address] WBC Auto #/vol (Bld) 7.51 10*3/uL Normal 4.00-10.60 Th e [facility] Comment on above: Order Comment: No: D o not add to previous draw Performed By: #### 8 5123 ####[facility] MAGNESIUM BLOODon 04-28-2018 Magnesium mass conc 1.7 mg/dL Low 1.9-2.7 [facility] Comment on above: Order Comment: No: D o not add to previous draw Performed By: #### 8 5123 ####[facility] [facility].[address] BASIC METABOLIC PANELon 04-04 Calcium mass conc 8.0 mg/dL Low 8.6-10.3 [facility] Comment on above: Performed By: #### 5 0103 ####[facility] [facility].[address] Chloride molar conc 109 mmol/L High 98-107 [facility] Comment on above: Performed By: #### 5 0103 ####[facility] [facility].[address] CO2 molar conc 15 mmol/L Low 21-31 [facility] Comment on above: Performed By: #### 5 0103 ####[facility] [facility].[address] Creatinine mass conc 0.88 mg/dL Normal 0.70-1.30 [facility] Comment on above: Performed By: #### 5 0103 ####[facility] [facility].[address] GFR/1.73 sq M predicted among blacks MDRD vol rate/area (S/P/Bld) mL/min/{1.73_m2} Normal >60 [facility] Comment on above: Performed By: #### 5 0103 ####[facility] [place] [address], [facility] GFR/1.73 sq M predicted among non-blacks MDRD vol rate/area (S/P/Bld) mL/min/{1.73_m2} Normal >60 [facility] Comment on above: Performed By: #### 5 0103 ####[facility] [facility] [place] [address], [facility] Glucose mass conc 97 mg/dL Normal 70-100 [facility] Comment on above: Performed By: #### 5 3 ####[facility] Potassium molar conc 3.7 mmol/L Normal 3.5-5.1 [facility] Comment on above: Performed By: #### 102 ####[facility] [facility].[address] Sodium molar conc 136 mmol/L Normal 136-145 [facility] Comment on above: Performed By: #### 5 3 ####[facility] Urea nitrogen mass conc 11 mg/dL Normal 7-25 [facility] Comment on above: Performed By: #### 5 3 ####[facility] [facility].[address] CBC COMPLETE BLOOD COUNTon 06-28-2017 Erythrocyte distribution width Auto Ratio (RBC) 13.5 % Normal 11.5-15.0 [facility] Comment on above: Order Comment: No: D o not add to previous draw Performed By: #### 5 3 ####[facility] Hematocrit Auto Volume Fraction (Bld) 33.2 % Low 39.0-50.0 [facility] Comment on above: Order Comment: No: D o not add to previous draw Performed By: #### 5 0103 ####[facility] Hemoglobin mass conc (Bld) 10.7 g/dL Low 13.0-17.0 [facility] Comment on above: Order Comment: No: D o not add to previous draw Performed By: #### 5 0103 ####[facility] MCH Auto Entitic mass (RBC) 29.1 pg Normal 27.0-33.0 [facility] Comment on above: Order Comment: No: D o not add to previous draw Performed By: #### 5 3 ####[facility] MCHC Auto mass conc (RBC) 32.2 g/dL Normal 32.0-35.0 [facility] Comment on above: Order Comment: No: D o not add to previous draw Performed By: #### 5 3 ####[facility] MCV Auto Entitic volume (RBC) 90.2 fL Normal 82.0-98.0 [facility] Comment on above: Order Comment: No: D o not add to previous draw Performed By: #### 5 3 ####[facility] Nucleated RBC/100 WBC Ratio (Bld) 0 % Normal 0-0 [facility] Comment on above: Order Comment: No: D o not add to previous draw Performed By: #### 5 3 ####[facility] PLAT CNT 235 10*3/uL Normal 150-400 [facility] Comment on above: Order Comment: No: D o not add to previous draw Performed By: #### 5 3 ####[facility] RBC Auto #/vol (Bld) 3.68 10*6/uL Low 4.20-5.70 Th e [facility] Comment on above: Order Comment: No: D o not add to previous draw Performed By: #### 5 0103 ####[facility] [facility].[address] WBC Auto #/vol (Bld) 6.99 10*3/uL Normal 4.00-10.60 Th e [facility] Comment on above: Order Comment: No: D o not add to previous draw Performed By: #### 5 0103 ####[facility] Consultationon 04-27-2018 Consultation MR#: [id number] Velia Bag[facility] Date of Service: 04/27/2018 Room #: 3AB [id number] Birthdate: 1960 Referring Physician: CONSULTATIONREASON FOR CONSULTATION:UTIHISTORY OF PRESENT ILLNESS:58-year-old male who was transferred from outside hospital with alteredmental status and hypotension, concern for urosepsis based on positiveurinalysis. On admission his tox screen was positive for barbiturates,TCAs, benzodiazepines, and opiates. Narcan was administered withimprovement in symptoms. Urology was consulted for urinary tractinfection. The patient has a history of BPH which was diagnosed during anepisode of retention following a stroke one year ago. He is currently onFlomax and follows with an outside urologist. He admits to weak stream,hesitancy, straining, and incomplete emptying. He has a history of strokewith residual left-sided weakness. He also has a history of spinalstenosis and had a lumbar laminectomy several years ago. He has had aurinary tract infection in the past. He denies history of stones orhematuria. Per his daughter he was complaining of dysuria prior toadmission. He currently denies fevers, chills, nausea, vomiting, chestpain, shortness of breath.MEDICATIONS: See the list. Pt on flomax 0.4mgALLERGIES: Baclofen, avocado, cat dander, Cipro, grass, pollen, Indocin,penicillin, pine oil, propranolol, sulfa, Valium.PAST MEDICAL HISTORY: Hypertension, COPD, osteoarthritis, peripheralneuropathy, BPH, depression, GERD, migraines, history of CVA withleft-sided weakness.SOCIAL HISTORY: No smoking, alcohol, or drug use. He lives with his son.FAMILY HISTORY: History of prostate cancer, brotherREVIEW OF SYSTEMS:Denies weight gain or loss, fatigue, headache, dizziness, lightheadedness,changes in vision, numbness or tingling in the extremities. +muscleweakness,. no new or unusual bone/joint pain.No nausea/vomiting, diarrhea, constipation, changes in bowel or bladderhabits.Denies chest pain, SOB, palpitations, fevers or chillsPHYSICAL EXAMINATION:VITAL SIGNS: 99, 91, 126/78, 18, 98%GENERAL: Awake alert oriented 3, no acute distressHEENT: Normocephalic, atraumaticNECK: Supple, Trachea midlineCHEST: Breathing nonlabored, equal chest riseHEART: Heart rate regular, positive radial pulses bilaterallyABDOMEN: Soft, nontender, nondistendedGU: Penis circumcised, meatus orthotopic. No scrotal abnormalities.Testes descended bilaterally, no nodules. Prostate smooth, symmetric,enlarged approximately 40 g. Normal rectal tone. Hard stool in rectalvault.EXTREMITIES: Warm and dry, no rashes or lesionsNEUROLOGIC: Cranial nerves II through XII grossly intact, no paresthesiasor anesthesiasMUSCULOSKELET AL: FROM, no upper or lower muscle weaknessesLABORATORY DATA:WBC 6.99, Hb 10.7, Platelet 235Na 137, K 4.4, Cl 110, CO2 22, BUN 15, Cr 0.95, Glucose 130UA: Positive nitrates and leukocyte esterase, greater than 100 WBC/hpfUrine culture: E coli, sensitivities pendingDIAGNOSTIC STUDIES:NoneIMPRESSION/A SSESSMENT:58-year-old male with altered mental status, improved following Narcanadministration. Benign prostatic hyperplasia, urinary tract infectionPLAN:UTI- Culture from [place] growing E. Coli. no evidence of systemicinfection OK to de-escalate antibiotics f/u final sensitivitiesBPH- continue flomax, increased to 0.8mg check PVR, last 130 after void 300 Will need outpatient follow upConstipation- likely contributing to LUTS Start miralaxOK to follow up with his current urologist. please call with questionsElectronically Signed by:Jarret Mullen M.D. 05/06/2018 01:25 P ____Jarret Mullen M.D. I personally saw this patient on the day of the encounter, performed thekey portion(s) of the service and participated in the management andconfirm the resident's documentation. Please note there may be anadditional personal documentation from me. Date Dict: 04/27/2018/09:14 A/JUWAN Montañoate Trans: 04/27/2018 09:14 Kristen/DEAN_JN:[id number]: Alix Murphy M.D. E R Physican...do Not Send [address] [facility] [address] Normal [facility] MAGNESIUM BLOODon 04-27-2018 Magnesium mass conc 1.7 mg/dL Low 1.9-2.7 [facility] Comment on above: Performed By: #### 5 0103 ####[facility] [facility].[address] VANCOMYCIN TIMEDon 8 VANCOMYCIN TIMED 4.3 mcg/mL Normal [facility] Comment on above: Performed By: #### 8 5123 ####[facility] [facility].[address] VANCOMYCIN TIMED 9.2 mcg/mL Normal [facility] Comment on above: Performed By: #### 5 0103 ####[facility] [facility].[address] *BLOOD CULTUREon 04-26-2018 Bacteria identified in Blood by Culture Clinical Report: (D) Specimen: BLOOD CULTURE Collected: 04/26/2018 06:21 Status: Final Last Updated: 05/01/2018 08:55 (1) x 2 Prior to Antibiotic Administration CULT RES (Final) No Growth Day 5 Normal [facility] Comment on above: Order Comment: No: D o not add to previous draw Performed By: #### 5 0103 ####[facility] [place] [address], [facility] Bacteria identified in Blood by Culture Clinical Report: (D) Specimen: BLOOD CULTURE Collected: 04/26/2018 06:16 Status: Final Last Updated: 05/01/2018 08:55 (1) x 2 Prior to Antibiotic Administration CULT RES (Final) No Growth Day 5 Normal [facility] Comment on above: Order Comment: No: D o not add to previous draw Performed By: #### 5 0103 ####[facility] [place] [address], [facility] AMMONIA BLOODon 04-26-2018 Ammonia mass conc (P) 43 umol/L Normal 16-53 [facility] Comment on above: Order Comment: No: D o not add to previous draw Performed By: #### 2 1408 ####[facility] [place] [address], [facility] BASIC METABOLIC PANELon 04-04 Calcium mass conc 8.0 mg/dL Low 8.6-10.3 [facility] Comment on above: Order Comment: No: D o not add to previous draw Performed By: #### 3 5200, 11552, 29892, 88895, 36158, 71006 ####[facility] [place] [address], [facility] Chloride molar conc 110 mmol/L High 98-107 [facility] Comment on above: Order Comment: No: D o not add to previous draw Performed By: #### 3 5200, 90905, 30628, 57195, 88599, 80532 ####[facility] [facility] [place] [address], [facility] CO2 molar conc 22 mmol/L Normal 21-31 [facility] Comment on above: Order Comment: No: D o not add to previous draw Performed By: #### 3 5200, 11637, 29417, 65753, 57022, 91371 ####[facility] [place] [address], [facility] Creatinine mass conc 0.95 mg/dL Normal 0.70-1.30 [facility] Comment on above: Order Comment: No: D o not add to previous draw Performed By: #### 3 5200, 42383, 01864, 63703, 71467, 59893 ####[facility] [place] [address], [facility] GFR/1.73 sq M predicted among blacks MDRD vol rate/area (S/P/Bld) mL/min/{1.73_m2} Normal >60 [facility] Comment on above: Order Comment: No: D o not add to previous draw Performed By: #### 3 5200, 68989, 46224, 96114, 50276, 82013 ####[facility] [place] [address], [facility] GFR/1.73 sq M predicted among non-blacks MDRD vol rate/area (S/P/Bld) mL/min/{1.73_m2} Normal >60 [facility] Comment on above: Order Comment: No: D o not add to previous draw Performed By: #### 3 5200, 40772, 78382, 31873, 79125, 33143 ####[facility] [place] [address], [place] Glucose mass conc 130 mg/dL High 70-100 [facility] Comment on above: Order Comment: No: D o not add to previous draw Performed By: #### 3 5200, 77217, 90748, 63298, 96329, 54494 ####[facility] [place] [address], [facility] Potassium molar conc 4.4 mmol/L Normal 3.5-5.1 [facility] Comment on above: Order Comment: No: D o not add to previous draw Performed By: #### 3 5200, 64052, 74403, 75066, 72812, 28906 ####[facility] [place] [address], [facility] Sodium molar conc 137 mmol/L Normal 136-145 [facility] Comment on above: Order Comment: No: D o not add to previous draw Performed By: #### 3 5200, 61211, 16895, 90333, 18678, 32224 ####[facility] [place] [address], [facility] Urea nitrogen mass conc 15 mg/dL Normal 7-25 [facility] Comment on above: Order Comment: No: D o not add to previous draw Performed By: #### 3 5200, 24694, 53325, 08946, 18381, 52661 ####[facility] [facility].[address] BNP (B-TYPE NATRIURETIC PEPT KAMERON)on 04-26-2018 Natriuretic peptide B mass conc (Bld) 49 pg/mL Normal 0-100 [facility] Comment on above: Order Comment: No: D o not add to previous draw Result Comment: Give n the appropriate clinical setting a BNP result of >100 pg/mLindicates congestive heart failure. Performed By: #### 8 5123 ####[facility] [place] [address], [facility] CBC W/DIFFon 04-26-2018 ABS BASOPHILS 0.0 10*3/uL Normal 0.0-0.2 [facility] Comment on above: Order Comment: No: D o not add to previous draw Performed By: #### 5 0103 ####[facility] [place] [address], [facility] ABS IMM GRANS 0.1 10*3/uL Normal 0.0-0.2 [facility] Comment on above: Order Comment: No: D o not add to previous draw Performed By: #### 5 0103 ####[facility] [place] [address], [facility] ABS NEUTROPHILS 8.0 10*3/uL High 1.6-7.6 [facility] Comment on above: Order Comment: No: D o not add to previous draw Performed By: #### 5 0103 ####[facility] [place] [address], [facility] Basophils Auto #/vol (Bld) 0.0 % Normal 0.0-1.0 [facility] Comment on above: Order Comment: No: D o not add to previous draw Performed By: #### 5 0103 ####[facility] [place] [address], [facility] Eosinophils Auto #/vol (Bld) 0.0 10*3/uL Normal 0.0-0.5 [facility] Comment on above: Order Comment: No: D o not add to previous draw Performed By: #### 5 0103 ####[facility] [facility].[address] Eosinophils/100 WBC Auto (Bld) 0.0 % Normal 0.0-6.0 [facility] Comment on above: Order Comment: No: D o not add to previous draw Performed By: #### 5 0103 ####[facility] Erythrocyte distribution width Auto Ratio (RBC) 13.5 % Normal 11.5-15.0 [facility] Comment on above: Order Comment: No: D o not add to previous draw Performed By: #### 5 0103 ####[facility] Hematocrit Auto Volume Fraction (Bld) 36.2 % Low 39.0-50.0 [facility] Comment on above: Order Comment: No: D o not add to previous draw Performed By: #### 5 0103 ####[facility] Hemoglobin mass conc (Bld) 11.6 g/dL Low 13.0-17.0 [facility] Comment on above: Order Comment: No: D o not add to previous draw Performed By: #### 5 0103 ####[facility] IMMATURE GRANS 0.9 % Normal 0.0-1.0 [facility] Comment on above: Order Comment: No: D o not add to previous draw Performed By: #### 5 0103 ####[facility] Lymphocytes Auto #/vol (Bld) 0.8 10*3/uL Low 1.2-4.0 [facility] Comment on above: Order Comment: No: D o not add to previous draw Performed By: #### 5 0103 ####[facility] Lymphocytes/100 WBC Auto (Bld) 8.7 % Low 20.0-45.0 [facility] Comment on above: Order Comment: No: D o not add to previous draw Performed By: #### 5 0103 ####[facility] MCH Auto Entitic mass (RBC) 29.1 pg Normal 27.0-33.0 [facility] Comment on above: Order Comment: No: D o not add to previous draw Performed By: #### 5 0103 ####[facility] MCHC Auto mass conc (RBC) 32.0 g/dL Normal 32.0-35.0 [facility] Comment on above: Order Comment: No: D o not add to previous draw Performed By: #### 5 0103 ####[facility] [facility].[address] MCV Auto Entitic volume (RBC) 90.7 fL Normal 82.0-98.0 [facility] Comment on above: Order Comment: No: D o not add to previous draw Performed By: #### 5 0103 ####[facility] Monocytes Auto #/vol (Bld) 0.5 10*3/uL Normal 0.1-1.0 [facility] Comment on above: Order Comment: No: D o not add to previous draw Performed By: #### 5 0103 ####[facility] MONOS 5.2 % Normal 5.0-12.0 [facility] Comment on above: Order Comment: No: D o not add to previous draw Performed By: #### 5 0103 ####[facility] [facility].[address] Neutrophils/100 WBC Auto (Bld) 85.2 % High 40.0-72.0 [facility] Comment on above: Order Comment: No: D o not add to previous draw Performed By: #### 5 0103 ####[facility] [facility].[address] Nucleated RBC/100 WBC Ratio (Bld) 0 % Normal 0-0 [facility] Comment on above: Order Comment: No: D o not add to previous draw Performed By: #### 5 0103 ####[facility] [place] [address], [facility] PLAT CNT 227 10*3/uL Normal 150-400 [facility] Comment on above: Order Comment: No: D o not add to previous draw Performed By: #### 5 0103 ####[facility] [place] [address] RBC Auto #/vol (Bld) 3.99 10*6/uL Low 4.20-5.70 Th e [facility] Comment on above: Order Comment: No: D o not add to previous draw Performed By: #### 5 0103 ####[facility] [place] [address] WBC Auto #/vol (Bld) 9.36 10*3/uL Normal 4.00-10.60 Th e [facility] Comment on above: Order Comment: No: D o not add to previous draw Performed By: #### 5 0103 ####[address] BRAIN WO CONTRASTon 04-26 CT BRA[facility]AST [facility]xurzep[address] [place] [id number] ==Patient Name: VELIA BAGLEY : 1960ex: MAge: Race: WhiteMRN: [id number]. Location: [id number] Status: IVisit #: [id number] Date: 04/26/2018 6:05:00 AMCompleted Date: 04/26/2018 07:13 AMRequesting Provider: LEANNA LAW Attending Provider: HAZEL WARD Report Copy To: Signs & Symptoms: LethargyHistory: Patient history not availableComments: R/O CVAExam: CT BRAIN WO CONTRASTAccession #: [id number] =========CT BRAIN WO CONTRAST 04/26/2018 7:13 AM EST SIGNS AND SYMPTOMS: Lethargy TECHNOLOGIST COMMENTS: C/o JOHNS, not responding to verbal commands. H/o CVA in past QUESTION FOR THE RADIOLOGIST: R/O CVA PROTOCOL: Axial CT images of the head were obtained without IV contrast. TECHNIQUE:Multi-detector CT axial slices of the brain were obtained without IV contrast. Helical,sagittal, coronal, and 3-D reconstructions were performed and viewed on a separate workstation. Appropriate CT dose lowering techniques were utilized. COMPARISON: None. FINDINGS: There is no shift of the midline structures, acute intracranial bleeding, mass effects, or evidence of acute ischemia. The ventricular system is normal in size. The brainstem and the cerebellum are unremarkable. The visualized intraorbital contents, and the infratemporal soft tissues show no acute abnormality. The osseous structures in the skull base and the calvarium show no abnormality. Small polypoid mucoperiosteal thickening in the left maxillary sinus suggesting mild chronic sinus disease. Mild vascular calcification is visualized. IMPRESSION: No acute intracranial abnormality. Approved by:Sandra Moser on 04/26/2018 7:24 AM EST. I, Enma Lea, have reviewed the images and report and concur with these findings. Electronically signed by:Enma Lea. Transcribed by: [id number], User Resident: SANDRA MOSERElectronically Signed by: ENMA LEA @ 04/27/2018 07:00 AMI personally read this/these film(s) with this resident Normal [facility] Comment on above: Order Comment: No: D o not add to previous draw HEMOGLOBIN A1Con 04-26-2018 Glucose mass conc 108 mg/dL Normal 70-126 [facility] Comment on above: Order Comment: No: D o not add to previous draw Performed By: #### 8 5123 ####[facility] Hemoglobin A1c/Hemoglobin.total mass fraction (Bld) 5.4 % Normal 4.0-6.0 [facility] Comment on above: Order Comment: No: D o not add to previous draw Performed By: #### 8 5123 ####[facility] [facility].[address] HEPATITIS C ANTIBODYon 04-26 ANTI-HCV NONREACTIVE Normal NONREACTIVE [facility] Comment on above: Order Comment: No: D o not add to previous draw Performed By: #### 5 0103 ####[facility] [facility].[address] HIV COMBO 4Gon 04-26-2018 HIV COMBO Negative Normal NEGATIVE [facility] Comment on above: Performed By: #### 5 0103 ####[place] [id number] History and Physicalon 04-26 History and Physical [id number] Velia Bagley Admitted: 04/26/2018 Date of : 1960 Attending Physician: Leanna Law M.D. Room #: 3AB [id number] Discharge Date: HISTORY AND PHYSICALCHIEF COMPLAINT: Lethargy, altered mental status.HISTORY OF PRESENT ILLNESS: The patient is a 58-year-old gentleman withpast medical history of hypertension, COPD, osteoarthritis, CVA withleft-sided weakness, presented as a transfer from . Fromthe review of the medical records that were sent, we know that the patientwas brought in to the ER by family who got concerned about the patient'sbehavior. For the last few days, he was behaving not at his baseline andthey were concerned about possible UTI because of the strong smell of theurine. The patient was also confused and lethargic. He was hallucinatingper report from the family. In the ER, the patient was hypotensive in the80s, but responded to fluids and his blood pressure improved to 100s. Hewas lethargic, but was responding and opening his eyes to calling his nameand sternal rub. The patient received Narcan 1 time. The patient is onmultiple medications that may contribute to his somnolence. He alsoreceived 2 L of fluid in the ER, 1 dose of hydrocortisone IV andvancomycin. Doctor from ER wanted the patient vinnie to [facility] because the patient has multiple allergies. They wereable to give him only vancomycin and they do not have ID consult on stafffor consultation for antibiotic coverage.MEDICATIONS: See the list.ALLERGIES: Baclofen, avocado, cat dander, Cipro, grass, pollen, Indocin,penicillin, pine oil, propranolol, sulfa, Valium.PAST MEDICAL HISTORY: Hypertension, COPD, osteoarthritis, peripheralneuropathy, BPH, depression, GERD, migraines, history of CVA withleft-sided weakness.SOCIAL HISTORY: No smoking, alcohol, or drug use. He lives with his son.FAMILY HISTORY: Unobtainable because the patient is somnolent.REVIEW OF SYSTEMS: Unobtainable, because the patient is somnolent andlethargic.PHYSICAL EXAMINATION: VITAL SIGNS: Temperature 98.3, pulse 76,respirations 16, blood pressure 114/62, oxygen saturation 98% on room air.GENERAL: The patient is sleepy, arousable only to sternal rub and callinghis name and then falls asleep again. His pupils are reactive to light.He seems to move all of his extremities spontaneously.MOUTH: Slightly dry oral mucosa.NECK: Supple.RESPIRATORY: Clear to auscultation bilaterally. No wheezing, rhonchi, orcrackles.CARDIOVASCULA R: Regular rate and rhythm. S1 and S2. No murmurs, rubs, orgallops.ABDOMEN: Soft, nondistended, nontender. No rigidity. No rebound.EXTREMITIES: Trace pedal edema bilaterally.SKIN: Warm, dry to touch. No skin rash.LABORATORY DATA: White blood cells 11.2, hemoglobin 11.6, hematocrit 35.3,platelets 244. Total bilirubin 0.4, total protein 5.8, albumin 3.2,calcium 8.1, ALT 27, AST 21, sodium 135, potassium 4.6, chloride 104, CO2of 21, BUN 19, creatinine 1.3, glucose 193, alkaline phosphatase 169. TSH1.76, lactate 1.7, T4 of 0.8. PT, INR are normal. CRP is 13.9.Urinalysis is positive for nitrites, white blood cells more than 100, largebacteria. Urine tox is positive for opiates and TCA which the patient tres.Chest x-ray is negative.EKG, no acute findings, normal sinus rhythm.ASSESSMENT: Metabolic encephalopathy, urinary tract infection, sepsis,chronic obstructive pulmonary disease KRISTA, anemia, protein malnutrition,hypertensio n, osteoarthritis, peripheral neuropathy, benign prostatichypertrophy, depression, gastroesophageal reflux disease, migraines,cerebrovascula r accident with left-sided weakness.PLAN:1. The patient is admitted to step-down on telemetry.2. Altered mental status, metabolic encephalopathy. We will order ammonia. The patient's thyroid level is normal. We will order also vitamin B12. We will order a CT of the brain stat.3. Sepsis. The patient already received 2 L of normal saline en route to the hospital. We will keep him on normal saline 125 mL/h. We will continue vancomycin and consult ID for proper antibiotic management considering the patient's multiple allergies. Follow up on blood cultures and urine culture.4. KRISTA . Recheck BMP after rehydration.5. Protein malnutrition. Consider starting boost once the patient's mental status improves and he is able to eat and drink by himself.6. We will order labs, DVT and GI prophylaxis. PT, OT and Fence Erector Supervisor for possible rehab placement if needed. We will resume patient's home medications. We will hold medications that may contribute to the patient's increased somnolence and that might affect the patient's mental status.Electronically Signed by:Leanna Law M.D. 04/30/2018 10:30 A Leanna Law M.D.Date Dict: 04/26/2018/06:21 A/Leanna Law M.D.Date Trans: 04/26/2018 07:04 [id number] Normal [facility] LIVER BATTERYon 04-26-2018 Albumin mass conc 3.2 g/dL Low 3.5-5.7 [facility] Comment on above: Order Comment: No: D o not add to previous draw Performed By: #### 3 5200, 03926, 76076, 00670, 73071, 00392 ####[facility] [place] [address], [facility] ALKALINE PHOSPH 122 IU/L High 34-104 [facility] Comment on above: Order Comment: No: D o not add to previous draw Performed By: #### 3 5200, 61419, 73177, 18440, 89396, 73408 ####[facility] [place] [address], [facility] ALT enzyme act/vol 16 U/L Normal 7-52 [facility] Comment on above: Order Comment: No: D o not add to previous draw Performed By: #### 3 5200, 70536, 77493, 10801, 02984, 34413 ####[facility] [place] [address], [place] AST enzyme act/vol 15 U/L Normal 13-39 [facility] Comment on above: Order Comment: No: D o not add to previous draw Performed By: #### 3 5200, 92927, 85267, 55978, 33111, 47521 ####[facility] [place] [address], [place] Bilirubin mass conc 0.5 mg/dL Normal 0.3-1.0 [facility] Comment on above: Order Comment: No: D o not add to previous draw Performed By: #### 3 5200, 76095, 43446, 61166, 70062, 08775 ####[facility] [place] [address], [place] Bilirubin.direct mass conc 0.1 mg/dL Normal 0.0-0.2 [facility] Comment on above: Order Comment: No: D o not add to previous draw Performed By: #### 3 5200, 74155, 88104, 74821, 05645, 32746 ####[facility] [place] [address], [facility] Protein mass conc 5.6 g/dL Low 6.0-8.3 [facility] Comment on above: Order Comment: No: D o not add to previous draw Performed By: #### 3 5200, 43942, 08482, 27245, 75911, 92036 ####[facility] [place] [address], [facility] MAGNESIUM BLOODon 04-26-2018 Magnesium mass conc 1.8 mg/dL Low 1.9-2.7 [facility] Comment on above: Order Comment: No: D o not add to previous draw Performed By: #### 3 5200, 47237, 42767, 49580, 52341, 53361 ####[facility] PHOSPHORUS BLOODon 8 Phosphate mass conc 3.1 mg/dL Normal 2.5-5.0 [facility] Comment on above: Order Comment: No: D o not add to previous draw Performed By: #### 3 5200, 52826, 19186, 12818, 39166, 42094 ####[facility] [facility].[address] SEPSIS LACTATE W/REFLEXon Lactate molar conc 0.6 mmol/L Normal 0.5-2.2 [facility] Comment on above: Order Comment: No: D o not add to previous draw Performed By: #### 3 1414 ####[facility] TROPONIN-Ion 04-26-2018 Troponin I.cardiac mass conc 0.01 ng/mL Normal 0.00-0.04 [facility] Comment on above: Order Comment: No: D o not add to previous draw Result Comment: REFE RENCE RANGES: 0.00 - 0.04 ng/ml NORMAL 0.05 - 0.50 ng/ml INDETERMINATE > 0.50 ng/ml CONSISTENT WITH AN M.I. Performed By: #### 3 5200, 24579, 69743, 73748, 50649, 75292 ####[facility] [place] [address], [facility] VANCOMYCIN TIMEDon 8 VANCOMYCIN TIMED 8.1 mcg/mL Normal [facility] Comment on above: Performed By: #### 5 0103 ####[facility] [facility].[address] VITAMIN B12on 04-26-2018 Cobalamin (Vitamin B12) mass conc 221 pg/mL Normal 180-914 [facility] Comment on above: Order Comment: No: D o not add to previous draw Result Comment: REFE RENCE RANGES:180-914 pg/mL Ysomuh955-161 pg/mL Indeterminate<145 pg/mL Deficient Performed By: #### 3 5200, 46354, 91368, 48808, 65293, 23667 ####[facility] [facility], [place] [id number] [place] [address] Discharge Summaryon 05-13-19 Discharge Summary [facility] Patient: VELIA BAGLEY[address] MR#: [id number] [place], [place] [address] : 1960 OrdSindi Clarke: Dept: PDOC Loc: 8W 842-1 Discharge Summary Service Dt: 05/13/17 Report#: [id number] Adm Dt: 05/09/17 Dis Dt: Discharge Summary - Principal/Other Diagnoses (1) Left leg weakness Status: Acute Current Visit: Yes (2) Asthma Status: Chronic Current Visit: Yes (3) Critical illness myopathy Status: Chronic Current Visit: Yes (4) H/O deep venous thrombosis Status: Chronic Current Visit: Yes (5) Idiopathic neuropathy Status: Chronic Current Visit: Yes (6) Migraine Status: Chronic Current Visit: Yes (7) Urinary retention Status: Acute Current Visit: Yes (8) Chronic lumbar radiculopathy Status: Chronic Current Visit: Yes (9) DVT prophylaxis Status: Acute Current Visit: Yes - Consultations Consulting Specialty: Neurology - Narrative Summary Hospital Course: 56 y/o male presents to hospital for left lower extremity weakness. Workup up for acute ischemic brain injury negative. Neurology consulted, cleared patient for discharge to SNF for rehab. His weakness appears chronic. His neurologist is Dr. Jodie matthews and he has seen neuro-muscular doctor as well. He has diagnoses of paresthesias, polyneuropathy, and muscle weakness and deconditioning upon review of outpatient notes. During hospital stay, he reported urinary hesitancy. Urology consulted, started on Flomax and his PVRs were monitored. He continued to have hesitancy and was started on Proscar. Follow up with urology outpatient in 1-2 weeks. Stable for discharge to SNF. - Vital Signs Vitals: Vital Signs (last response) Temperature 36.3 C L 05/13/17 13:48 Pulse/Heart Rate 89 05/13/17 13:48 Respiratory Rate 16 05/13/17 13:48 Blood Pressure 120/78 05/13/17 13:48 O2 Sat by Pulse Oximetry 99 05/13/17 13:48 - Disposition Disposition: TO SNF-OTHER - Other Patient Information Activity: Activity Ordered Up with Assistance Diet: Diet Regular Diet - Consistency Start Sat May 6 Breakfast Referrals: Mathew Miller MD [Courtesy] - (Follow up in 8 weeks. Call to make an appointment.) Nani Wyman MD [Active] - (Follow up in 1-2 weeks. Call to make an appointment.) - Discharge Medications Meds: Home Medications Medication Instructions Recorded Albuterol [Proair HFA] 2 puff IN Q6 PRN 05/09/17 Almotriptan Malate 12.5 mg PO Q2 PRN 05/09/17 Amitriptyline HCl [Elavil] 10 mg PO QHS 05/09/17 Apixaban [Eliquis] 5 mg PO BID 05/09/17 Budesonide/Formoterol Fumarate 2 puff IN Q12 05/09/17 [Symbicort 160-4.5 Mcg Inhaler] Celecoxib [Celebrex] 400 mg PO BID 05/09/17 Fluticasone Propionate 0.05% 1 spray EACH NSTRL DAILY 05/09/17 [Flonase] HYDROcodone 5 mg/ACETAM 325 mg 1 tab PO TID PRN 05/09/17 [[place]worth 5/325 mg] Losartan/Hydrochlorothia zide 1 each PO DAILY 05/09/17 [Losartan-Hctz 100-25 mg Tab] Montelukast Sodium [Singulair] 10 mg PO SUPPER 05/09/17 Potassium Chloride [Klor-Con] 20 meq PO TID 05/09/17 Pregabalin [Lyrica] 200 mg PO Q12 05/09/17 Tiotropium [place] [Spiriva] 18 mcg IN DAILY 05/09/17 Topiramate [Topamax] 100 mg PO Q12 05/09/17 diazePAM [Valium] 10 mg PO TID PRN 05/09/17 tiZANidine [Zanaflex] 8 mg PO QHS 05/09/17 Finasteride [Proscar] 5 mg PO DAILY #30 tab 05/13/17 Tamsulosin HCl [Flomax] 400 mcg PO QHS #30 cap 05/13/17 - Time Spent with Patient Time with Patient: 32 Normal [facility] General Medical Progress Not penny 05-12-2017 General Medical Progress Note [facility] Patient: VELIA BAGLEY [facility] MR#: [id number] [place], [place] [address] : 1960 OrdSindi Clarke: Dept: PDOC Loc: 8W 842-1 General Medical Progress Note Service Dt: 05/12/17 Report#: [id number] Adm Dt: 05/09/17 Dis Dt: General-Medical Progress Note - Patient Visit Reason Visit Reason: WEAKNESS - Chief Complaint Chief Complaint: Left lower extremity weakness - Subjective Narrative HPI/ROS: Pt seen and examined. Left lower extremity continues to be weak. He reports that he has been having difficulty urinating, feels urge to void but takes a while to start urinary stream. No new complaints at this time. - I O/Vital Signs I O/VS: Vital Signs Temp 36.5 C 05/12/17 06:00 Pulse 80 05/12/17 08:35 Resp 16 05/12/17 07:33 BP 108/67 05/12/17 06:00 Pulse Ox 97 05/12/17 06:00 Intake Output 05/11/17 05/11/17 05/12/17 11:59 23:59 11:59 Intake Total 240 740 Balance 240 740 Intake: Oral 240 740 Other: Incontinent Voided Amount Moderate Bladder Scan Amount 167 - Patient Exam General appearance: alert, in no apparent distress Limitations: Positive: physical limitation Head: Positive: normal inspection Eyes: Positive: PERRL, EOMI ENT: Positive: normal exam Neck: Positive: trachea midline, supple Respiratory: Positive: normal lung sounds bilaterally Cardiovascular: Positive: regular rate, normal rhythm GI/Abdominal: Positive: soft, nontender, nondistended Extremities: Positive: no edema, no cellulitis Neurological: Positive: alert, oriented X3, other (left lower extremity weakness) Integumentary: Positive: warm, dry - Lab Diagnostic Data Diagrams: 05/11/17 07:06 05/11/17 22:30 Chemistry: Chemistry (Last 24hrs) 05/11/17 22:30 Potassium 3.9 - Medications Meds: Current Medications Acetaminophen (Tylenol) 650 mg PO Q4 PRN PRN Reason: Pain (mild)/Temp above 38.3 C Last Admin: 05/12/17 06:15 Dose: 650 mg Albuterol Sulfate (Proventil Mdi Hfa (Sp)) 2 puff IN Q6(RESP) PRN PRN Reason: Shortness of Breath Albuterol Sulfate (Proventil) 3 ml IN Q2(RESP) PRN PRN Reason: Shortness of Breath Last Admin: 05/11/17 13:33 Dose: 3 ml Amitriptyline HCl (Elavil) 10 mg PO QHS [facility] Last Admin: 05/11/17 21:43 Dose: 10 mg Apixaban (Eliquis) 5 mg PO BID [facility] Last Admin: 05/11/17 17:09 Dose: 5 mg Celecoxib (Celebrex) 400 mg PO BID [facility] Last Admin: 05/11/17 17:10 Dose: 400 mg Dextrose (Dextrose Syringe) 50 ml IV Q15M PRN PRN Reason: Hypoglycemia Diazepam (Valium) 10 mg PO TID PRN PRN Reason: Anxiety Last Admin: 05/11/17 17:22 Dose: 10 mg Fluticasone Propionate (Flonase) 1 spray EACH NSTRL DAILY [facility] Last Admin: 05/11/17 09:04 Dose: Not Given Glucagon (Glucagon) 1 mg IM Q15M PRN PRN Reason: Hypoglycemia Hydrochlorothiazide (Esidrix) 25 mg PO DAILY [facility] Last Admin: 05/11/17 09:04 Dose: 25 mg Losartan Potassium (Cozaar) 100 mg PO DAILY [facility] Last Admin: 05/11/17 09:04 Dose: 100 mg Montelukast Sodium (Singulair) 10 mg PO SUPPER [facility] Last Admin: 05/11/17 17:09 Dose: 10 mg Almotriptan 12.5 Mg 0 each PO VARIABLE PRN PRN Reason: MIGRAINE Potassium Chloride (K-Dur) 60 meq PO DAILY [facility] Pregabalin (Lyrica) 200 mg PO Q12 [facility] Last Admin: 05/11/17 21:42 Dose: 200 mg Fluticasone/Salmeterol (Advair 250/50 Mcg Inhaler) 1 puff IN BID(RESP) [facility] Last Admin: 05/12/17 07:30 Dose: 1 puff Tamsulosin HCl (Flomax) 400 mcg PO QHS [facility] Last Admin: 05/11/17 21:43 Dose: 400 mcg Tiotropium [place] (Spiriva) 1 puff IN DAILY(RESP) [facility] Last Admin: 05/12/17 07:32 Dose: 1 puff Topiramate (Topamax) 100 mg PO Q12 [facility] Last Admin: 05/11/17 21:43 Dose: 100 mg Allergies/Adv: Allergies Allergy/AdvReac Type Severity Reaction Status Date / Time baclofen Allergy Unknown Verified 05/09/17 05:29 ciprofloxacin [From Cipro] Allergy Swelling Verified 05/09/17 05:29 diazepam [From Valium] Allergy Unknown Verified 05/09/17 05:29 indomethacin [From Indocin] Allergy Rash Verified 05/09/17 05:29 Penicillins Allergy Rash Verified 05/09/17 05:29 Sulfa (Sulfonamide Allergy Shortness Verified 05/09/17 05:29 Antibiotics) of Breath - Assessment/Plan (1) Left leg weakness Status: Acute Current Visit: Yes (2) Asthma Status: Chronic Current Visit: Yes (3) Critical illness myopathy Status: Chronic Current Visit: Yes (4) H/O deep venous thrombosis Status: Chronic Current Visit: Yes (5) Idiopathic neuropathy Status: Chronic Current Visit: Yes (6) Migraine Status: Chronic Current Visit: Yes (7) Urinary retention Status: Acute Current Visit: Yes (8) Chronic lumbar radiculopathy Status: Chronic Current Visit: Yes (9) DVT prophylaxis Status: Acute Current Visit: Yes - Comments Impression: 05/12/17 09:26 57 y/o male presents to hospital for left lower extremity weakness. 1) Left lower extremity weakness 2) Urinary hesitancy 3) Asthma, stable 4) h/o DVT on Eliquis 5) Idiopathic neuropathy 6) HTN MRI/MRA negative for acute ischemia, seen by neurology, recommending rehab. Started on Flomax, seen by urology, checking PVRs. He states he has needed to [facility] at one point in the past. Lungs are CTAB, no wheezing, continue home inhalers. Continue Eliquis. BP stable, continue Losartan and HCTZ. Placement to SNF in progress. - Patient Time (minutes) Time Spent w/Patient: 32 Normal [facility] Potassiumon 05-12-2017 Potassium molar conc 3.9 mmol/L Normal 3.5-5.1 [facility] Comment on above: Performed By: #### C BC, BMP, LDLP ####[facility] [place] [address] Urology Progress Noteon Urology Progress Note [facility] Patient: VELIA BAGLEY [address] [facility] MR#: [id number] [place], [place] [address] : 1960 Ord. : Dept: PDOC Loc: 8W 842-1 Urology Progress Note Service Dt: 05/12/17 Report#: [id number] Adm Dt: 05/09/17 Dis Dt: Addendum entered by Aj Rivas MD on 05/12/17 1130 Physician Supervisory Note Supervisory Addendum: Patient seen and I agree with the Physician Silk Brusher's note. 05/12/17 1130 End of Addendum Urology Progress Note - Patient Visit Reason Visit Reason: WEAKNESS - Chief Complaint Chief Complaint: Left lower extremity weakness - Subjective Narrative HPI/ROS: No new complaints voiding well - I O/Vital Signs I O/VS: Intake/Output/Wt 05/09/17 05/10/17 05/11/17 05/12/17 23:59 23:59 23:59 23:59 Intake Total 480 980 Balance 480 980 Weight 100 kg Intake: Oral 480 980 Other: Height 1.78 m Incontinent Voided Amount Moderate PVR via Bladder Scan 237 Amount Bladder Scan Amount 167 Vital Signs (last 24 hrs) Temp Pulse Resp BP Pulse Ox 05/12/17 08:35 80 05/12/17 07:33 80 16 05/12/17 07:32 80 16 05/12/17 07:31 80 16 05/12/17 07:30 80 16 05/12/17 06:00 36.5 C 80 16 108/67 97 05/11/17 22:00 36.7 C 79 20 119/78 94 05/11/17 20:34 85 16 05/11/17 20:33 84 22 05/11/17 20:00 79 05/11/17 16:48 36.5 C 99 H 18 120/79 96 05/11/17 14:00 36.4 C L 110 H 20 134/76 98 05/11/17 13:33 106 H 20 05/11/17 10:53 95 H 18 05/11/17 10:52 95 H 11 L 05/11/17 10:51 95 H 18 05/11/17 10:00 36.1 C L 97 H 18 111/67 96 - Patient Exam General appearance: Positive: alert, in no apparent distress GI/Abdominal: Positive: soft, nontender, nondistended Neurological: Positive: alert - Lab Diagnostic Data Diagrams: 05/11/17 07:06 05/11/17 22:30 Labs (last 24 hrs): Chemistry 05/11/17 22:30 Potassium 3.9 - Medications Meds: Current Medications Acetaminophen (Tylenol) 650 mg PO Q4 PRN PRN Reason: Pain (mild)/Temp above 38.3 C Last Admin: 05/12/17 06:15 Dose: 650 mg Albuterol Sulfate (Proventil Mdi Hfa (Sp)) 2 puff IN Q6(RESP) PRN PRN Reason: Shortness of Breath Albuterol Sulfate (Proventil) 3 ml IN Q2(RESP) PRN PRN Reason: Shortness of Breath Last Admin: 05/11/17 13:33 Dose: 3 ml Amitriptyline HCl (Elavil) 10 mg PO QHS [facility] Last Admin: 05/11/17 21:43 Dose: 10 mg Apixaban (Eliquis) 5 mg PO BID [facility] Last Admin: 05/12/17 09:25 Dose: 5 mg Celecoxib (Celebrex) 400 mg PO BID [facility] Last Admin: 05/12/17 09:24 Dose: 400 mg Dextrose (Dextrose Syringe) 50 ml IV Q15M PRN PRN Reason: Hypoglycemia Diazepam (Valium) 10 mg PO TID PRN PRN Reason: Anxiety Last Admin: 05/11/17 17:22 Dose: 10 mg Fluticasone Propionate (Flonase) 1 spray EACH NSTRL DAILY [facility] Last Admin: 05/12/17 09:27 Dose: Not Given Glucagon (Glucagon) 1 mg IM Q15M PRN PRN Reason: Hypoglycemia Hydrochlorothiazide (Esidrix) 25 mg PO DAILY [facility] Last Admin: 05/12/17 09:27 Dose: 25 mg Losartan Potassium (Cozaar) 100 mg PO DAILY [facility] Last Admin: 05/12/17 09:25 Dose: 100 mg Montelukast Sodium (Singulair) 10 mg PO SUPPER [facility] Last Admin: 05/11/17 17:09 Dose: 10 mg Almotriptan 12.5 Mg 0 each PO VARIABLE PRN PRN Reason: MIGRAINE Potassium Chloride (K-Dur) 60 meq PO DAILY [facility] Last Admin: 05/12/17 09:32 Dose: 60 meq Pregabalin (Lyrica) 200 mg PO Q12 [facility] Last Admin: 05/12/17 09:31 Dose: 200 mg Fluticasone/Salmeterol (Advair 250/50 Mcg Inhaler) 1 puff IN BID(RESP) [facility] Last Admin: 05/12/17 07:30 Dose: 1 puff Tamsulosin HCl (Flomax) 400 mcg PO QHS [facility] Last Admin: 05/11/17 21:43 Dose: 400 mcg Tiotropium [place] (Spiriva) 1 puff IN DAILY(RESP) [facility] Last Admin: 05/12/17 07:32 Dose: 1 puff Topiramate (Topamax) 100 mg PO Q12 [facility] Last Admin: 05/12/17 09:32 Dose: 100 mg Allergies/Adv: Allergies Allergy/AdvReac Type Severity Reaction Status Date / Time baclofen Allergy Unknown Verified 05/09/17 05:29 ciprofloxacin [From Cipro] Allergy Swelling Verified 05/09/17 05:29 diazepam [From Valium] Allergy Unknown Verified 05/09/17 05:29 indomethacin [From Indocin] Allergy Rash Verified 05/09/17 05:29 Penicillins Allergy Rash Verified 05/09/17 05:29 Sulfa (Sulfonamide Allergy Shortness Verified 05/09/17 05:29 Antibiotics) of Breath - Assessment/Plan (1) Urinary retention Status: Acute Current Visit: Yes Plan: 05/11/17 10:44 Voiding well, PVR for this am pending, see orders Continue Flomax. If DC is eminent F/U in 1-2 weeks 05/12/17 09:47 Continue Flomax and double voiding Last PVR 160cc nothing further to add ok for DC from a Urological standpoint and F/U in 1-2 weeks Normal [facility] Carotid Duplex Scanon 2017 Carotid Duplex Scan [facility] , [address] [place] [address] and Vascular Lab Report Carotid Artery Duplex Ultrasound Patient Name: VELIA BAGLEY Study Date: 05/11/2017 Reading Physician: YOSELIN Miller MD MRN/PID: [id number] Referring Physician: PAULIEN Belcher Accession/Order#: [id number] PCP: Date of : 1960 CC Report to: Gender: M Technologist: Toña Johnson Admission Status: Inpatient Technologist 2: Facility Performed: [facility] Location Performed: [facility] Diagnosis/ICD: G45.9 - Transient cerebral ischemic attack, unspecified Procedure/CPT: 85123 - Cerebrovacular Carotid Duplex scan complete CONCLUSIONS: Right Carotid: Findings are consistent with less than 50% stenosis of the right ICA. Right external carotid artery appears patent with no evidence of stenosis. The right vertebral artery is patent with antegrade flow. No evidence of hemodynamically significant stenosis in the right subclavian. Left Carotid: Findings are consistent with less than 50% stenosis of the left ICA. Left external carotid artery appears patent with no evidence of stenosis. The left vertebral artery is patent with antegrade flow. No evidence of hemodynamically significant stenosis in the left subclavian. Right Plaque Morph: The proximal right internal carotid artery demonstrates intimal thickening plaque. Left Plaque Morph: The proximal left internal carotid artery demonstrates intimal thickening plaque. Right Left PSV EDV PSV EDV 89 cm/s 23 cm/s CCA P 76 cm/s 23 cm/s 79 cm/s 21 cm/s CCA D 72 cm/s 23 cm/s 91 cm/s 19 cm/s ICA P 71 cm/s 28 cm/s 62 cm/s 25 cm/s ICA D 63 cm/s 23 cm/s 121 cm/s ECA 108 cm/s 38 cm/s Vertebral 47 cm/s 131 cm/s Subclavian 145 cm/s Right Left ICA/CCA Ratio 1.2 1.0 YOSELIN Miller MD Final Normal [facility] Complete Blood Count w/diff $$on 05-11-2017 Basophils Auto #/vol (Bld) 0.0 10 /uL Low 0.04-0.9 [facility] Comment on above: Performed By: #### C ZABRINA, BMP, LDLP ####[facility] [place] [address] Basophils/100 WBC Auto (Bld) 1 % Normal 0-1 [facility] Comment on above: Performed By: #### C ZABRINA, BMP, LDLP ####[facility] [place] [address] Eosinophils 0.1 10 3/uL Normal 0.03-0.6 [facility] Comment on above: Performed By: #### C ZABRINA, BMP, LDLP ####[facility] [place] [address] Eosinophils/100 leukocytes 1 % Normal 0-3 [facility] Comment on above: Performed By: #### C BC, BMP, LDLP ####[facility] [place] [address] Erythrocyte distribution width Auto Ratio (RBC) 14.4 % Normal 11.5-14.5 [facility] Comment on above: Performed By: #### C BC, BMP, LDLP ####[facility] [place] [address] Erythrocytes (RBC) 4.90 10 6/uL Normal 4.5-6.0 [facility] Comment on above: Performed By: #### C BC, BMP, LDLP ####[address] [address] Hematocrit (HCT) 44.9 % Normal 39-50 [facility] Comment on above: Performed By: #### C BC, BMP, LDLP ####[address] [address] Hemoglobin mass conc (Bld) 14.8 g/dL Normal 13.0-17.3 [facility] Comment on above: Performed By: #### C BC, BMP, LDLP ####[address] [address] Immature Gran# (Auto) 0.1 10 3/uL Normal [facility] Comment on above: Performed By: #### C BC, BMP, LDLP ####[address] [address] Immature granulocytes #/vol (Bld) 0.7 % Normal 0.0-1.2 [facility] Comment on above: Performed By: #### C BC, BMP, LDLP ####[address] [address] Lymphocytes 1.4 10 3/uL Normal 1-3.5 [facility] Comment on above: Performed By: #### C BC, BMP, LDLP ####[address] [place] [address] Lymphocytes/100 leukocytes 20 % Low 24-44 [facility] Comment on above: Performed By: #### C BC, BMP, LDLP ####[facility] [place] [address] MCH 30.2 pg Normal 27-34 [facility] Comment on above: Performed By: #### C BC, BMP, LDLP ####[facility] [place] [address] MCH 33.0 g/dL Normal 33-37 [facility] Comment on above: Performed By: #### C BC, BMP, LDLP ####[facility] [place] [address] MCV 91.6 fL Normal 80-100 [facility] Comment on above: Performed By: #### C BC, BMP, LDLP ####[facility] [place] [address] Monocytes 0.6 10 3/uL Normal 0.04-0.9 [facility] Comment on above: Performed By: #### C BC, BMP, LDLP ####[facility] [place] [address] Monocytes/100 leukocytes 8 % Normal 1-8 [facility] Comment on above: Performed By: #### C BC, BMP, LDLP ####[facility] [place] [address] Neutrophils 5.0 10 3/uL Normal 1.8-7.0 [facility] Comment on above: Performed By: #### C BC, BMP, LDLP ####[facility] [place] [address] Neutrophils/100 leukocytes 69 % Normal 42-76 [facility] Comment on above: Performed By: #### C BC, BMP, LDLP ####[address] [place] [address] Nucleated erythrocytes 0.0 % Normal 0.0-0.2 [facility] Comment on above: Performed By: #### C BC, BMP, LDLP ####[facility] [place] [address] Platelet mean volume (PMV) 9.2 fL Normal 7.4-10.4 [facility] Comment on above: Performed By: #### C BC, BMP, LDLP ####[address] [address] Platelets 217 10 3/uL Normal 150-400 [facility] Comment on above: Performed By: #### C BC, BMP, LDLP ####[address] [address] WBC (Leukocytes) 7.2 10 3/uL Normal 4.0-11.0 [facility] Comment on above: Performed By: #### C BC, BMP, LDLP ####[facility] [place] [address] Comprehensive Metabolic Pane nanette 05-11-2017 Alanine aminotransferase (ALT) 25 U/L Normal 12-78 [facility] Comment on above: Performed By: #### C BC, BMP, LDLP ####[facility] [place] [address] Albumin 3.3 g/dL Low 3.4-5.0 [facility] Comment on above: Performed By: #### C BC, BMP, LDLP ####[facility] [place] [address] Alkaline phosphatase (ALP) 87 U/L Normal 50-136 [facility] Comment on above: Performed By: #### C BC, BMP, LDLP ####[facility] [place] [address] Anion gap 13.7 mmol/L Normal [facility] Comment on above: Performed By: #### C BC, BMP, LDLP ####[facility] [place] [address] Aspartate aminotransferase (AST) 14 U/L Low 15-37 [facility] Comment on above: Performed By: #### C BC, BMP, LDLP ####[facility] [place] [address] Bilirubin Ql (U) 0.6 mg/dL Normal 0.2-1.0 [facility] Comment on above: Performed By: #### C BC, BMP, LDLP ####[address] [address] BUN (urea nitrogen) 26 mg/dL High 7-18 [facility] Comment on above: Performed By: #### C BC, BMP, LDLP ####[address] [address] Calcium 8.3 mg/dL Low 8.5-10.1 [facility] Comment on above: Performed By: #### C BC, BMP, LDLP ####[address] [address] Chloride 110 mmol/L High 98-107 [facility] Comment on above: Performed By: #### C BC, BMP, LDLP ####[address] [address] CO2 22 mmol/L Normal 21-32 [facility] Comment on above: Performed By: #### C BC, BMP, LDLP ####[address] [address] Creatinine 1.0 mg/dL Normal 0.6-1.3 [facility] Comment on above: Performed By: #### C BC, BMP, LDLP ####[facility] [place] [address] Creatinine 85 mL/min Low 94-145 [facility] Comment on above: Performed By: #### C BC, BMP, LDLP ####[facility] [place] [address] eGFR (non-black) mL/min/{1.73_m2} Normal [facility] Comment on above: Performed By: #### C BC, BMP, LDLP ####[facility] [place] [address] Result Comment: eGFR Units of measure: mL/min/1.73 m 2 Glucose mass conc 112 mg/dL High 74-106 [facility] Comment on above: Performed By: #### C BC, BMP, LDLP ####[address] [address] Potassium molar conc 3.7 mmol/L Normal 3.5-5.1 [facility] Comment on above: Performed By: #### C BC, BMP, LDLP ####[address] [address] Protein 6.2 g/dL Low 6.4-8.2 [facility] Comment on above: Performed By: #### C BC, BMP, LDLP ####[address] [address] Sodium 142 mmol/L Normal 136-145 [facility] Comment on above: Performed By: #### C BC, BMP, LDLP ####[address] [address] General Medical Progress Not penny 05-11-2017 General Medical Progress Note [facility] Patient: VELIA BAGLEY sayda MR#: [id number] [place], [place] [address] : 1960 [address] Clarke: Dept: PDOC Loc: [id number] General Medical Progress Note Service Dt: 05/11/17 Report#: [id number] Adm Dt: 05/09/17 Dis Dt: 05/13/17 General-Medical Progress Note - Patient Visit Reason Visit Reason: WEAKNESS - Chief Complaint Chief Complaint: Left lower extremity weakness - Subjective Narrative HPI/ROS: Please refer to yesterday's note for a detailed account of patient's imaging studies and current hospitalization goals No changes, the patient is weak, nonambulatory due to the measurable objective left leg weakness, in turn due to radiculopathy, in turn due to low back problems as seen on the MRI No fevers, no chills, no GI symptoms, - Review of Systems All systems: 10 point review of systems negative except for what is stated in HPI - I O/Vital Signs I O/VS: Vital Signs Temp 36.1 C L 05/11/17 10:00 Pulse 106 H 05/11/17 13:33 Resp 20 05/11/17 13:33 BP 111/67 05/11/17 10:00 Pulse Ox 96 05/11/17 10:00 Intake Output 05/10/17 05/11/17 05/11/17 23:59 11:59 23:59 Intake Total 480 Balance 480 Intake: Oral 480 Other: PVR via Bladder Scan 237 Amount Bladder Scan Amount 167 - Patient Exam General appearance: alert, in no apparent distress Limitations: Positive: physical limitation Head: Positive: normal inspection Eyes: Positive: normal appearance Pupils: Positive: equal and reactive ENT: Positive: mucous membranes moist Neck: Positive: normal inspection Respiratory: Positive: normal lung sounds bilaterally Cardiovascular: Positive: regular rate, normal rhythm, normal heart sounds GI/Abdominal: Positive: soft, nontender, nondistended, no organomegaly palpable, normal bowel sounds Extremities: Positive: no edema, no cellulitis, bilateral pulses positive Neurological: Positive: alert, oriented X3, CN II-XII intact, other (Left distal lower extremity weakness) Integumentary: Positive: warm, dry, intact, normal color - Lab Diagnostic Data Diagrams: 05/11/17 07:06 05/11/17 22:30 Chemistry: Chemistry (Last 24hrs) 05/11/17 07:06 Sodium 142 Potassium 3.7 D Chloride 110 H Carbon Dioxide 22 Anion Gap 13.7 BUN 26 H Creatinine 1.0 Estim Creat Clear Calc 85 L Est GFR ( Amer) >60 Est GFR (Non-Af Amer) >60 Fasting Glucose 112 H Calcium 8.3 L Magnesium 2.2 Total Bilirubin 0.6 AST 14 L ALT 25 Alkaline Phosphatase 87 Total Protein 6.2 L Albumin 3.3 L - Medications Meds: Current Medications Acetaminophen (Tylenol) 650 mg PO Q4 PRN PRN Reason: Pain (mild)/Temp above 38.3 C Last Admin: 05/10/17 06:33 Dose: 650 mg Albuterol Sulfate (Proventil Mdi Hfa (Sp)) 2 puff IN Q6(RESP) PRN PRN Reason: Shortness of Breath Albuterol Sulfate (Proventil) 3 ml IN Q2(RESP) PRN PRN Reason: Shortness of Breath Last Admin: 05/11/17 13:33 Dose: 3 ml Amitriptyline HCl (Elavil) 10 mg PO QHS [facility] Last Admin: 05/10/17 23:03 Dose: 10 mg Apixaban (Eliquis) 5 mg PO BID [facility] Last Admin: 05/11/17 09:04 Dose: 5 mg Celecoxib (Celebrex) 400 mg PO BID [facility] Last Admin: 05/11/17 09:04 Dose: 400 mg Dextrose (Dextrose Syringe) 50 ml IV Q15M PRN PRN Reason: Hypoglycemia Diazepam (Valium) 10 mg PO TID PRN PRN Reason: Anxiety Last Admin: 05/10/17 15:25 Dose: 10 mg Fluticasone Propionate (Flonase) 1 spray EACH NSTRL DAILY [facility] Last Admin: 05/11/17 09:04 Dose: Not Given Glucagon (Glucagon) 1 mg IM Q15M PRN PRN Reason: Hypoglycemia Hydrochlorothiazide (Esidrix) 25 mg PO DAILY [facility] Last Admin: 05/11/17 09:04 Dose: 25 mg Potassium Chloride 40 meq/ (Sodium Chloride) 270 mls @ 67.5 mls/hr IVPB LAB PRN PRN Reason: HYPOKALEMIA Losartan Potassium (Cozaar) 100 mg PO DAILY [facility] Last Admin: 05/11/17 09:04 Dose: 100 mg Montelukast Sodium (Singulair) 10 mg PO SUPPER [facility] Last Admin: 05/10/17 17:19 Dose: 10 mg Almotriptan 12.5 Mg 0 each PO VARIABLE PRN PRN Reason: MIGRAINE Potassium Bicarbonate (K-Lyte) 50 meq PO LAB PRN; Protocol PRN Reason: Based on Lab Parameters Last Admin: 05/09/17 16:49 Dose: 50 meq Potassium Chloride (K-[place]) 20 meq PO TID [facility] Last Admin: 05/11/17 13:36 Dose: 20 meq Pregabalin (Lyrica) 200 mg PO Q12 [facility] Last Admin: 05/11/17 09:04 Dose: 200 mg Fluticasone/Salmeterol (Advair 250/50 Mcg Inhaler) 1 puff IN BID(RESP) [facility] Last Admin: 05/11/17 10:51 Dose: 1 puff Tamsulosin HCl (Flomax) 400 mcg PO QHS [facility] Last Admin: 05/10/17 23:02 Dose: 400 mcg Tiotropium [place] (Spiriva) 1 puff IN DAILY(RESP) [facility] Last Admin: 05/11/17 10:52 Dose: 1 puff Topiramate (Topamax) 100 mg PO Q12 [facility] Last Admin: 05/11/17 09:03 Dose: 100 mg Allergies/Adv: Allergies Allergy/AdvReac Type Severity Reaction Status Date / Time baclofen Allergy Unknown Verified 05/09/17 05:29 ciprofloxacin [From Cipro] Allergy Swelling Verified 05/09/17 05:29 diazepam [From Valium] Allergy Unknown Verified 05/09/17 05:29 indomethacin [From Indocin] Allergy Rash Verified 05/09/17 05:29 Penicillins Allergy Rash Verified 05/09/17 05:29 Sulfa (Sulfonamide Allergy Shortness Verified 05/09/17 05:29 Antibiotics) of Breath - Assessment/Plan (1) Left leg weakness Status: Acute (2) Tachycardia Status: Acute (3) Asthma Status: Chronic (4) Chronic lumbar radiculopathy Status: Chronic (5) H/O deep venous thrombosis Status: Chronic (6) Idiopathic neuropathy Status: Chronic (7) Migraine Status: Chronic - Comments Impression: 05/10/17 13:28 The presence of fairly recent onset left lower extremity weakness is certainly concerning Pertinent the neurologist work and family life consultant the patient needs physical therapy and rehabilitation and I will work on accommodating this The patient is a full admission He also has asthma requiring aerosols or inhalers His tachycardia without other symptoms and without hypoxia is very likely indicative of the use of aerosols for asthma however I will keep an eye on this and, if persistent, an EKG for further evaluation would be needed Continue present care, reintroduce some of the home medications including the when necessary Valium which is an excellent muscle relaxant DVT GI prophylaxis measures 05/11 Continue present care Full admission Aerosols for his asthma Anti-inflammatories Continue home medications, when necessary Valium DVT GI prophylaxis measures Monitor vital parameters Normal [facility] Lumbar W/O Contraston 2017 Lumbar W/O Contrast [facility] Patient: VELIA BAGLEY [address] MR#: [id number] [place], [place] [address] : [address] Mathew Miller MD Dept: Diagnostic Imaging Loc: 8W [id number] DI REPORT Service Dt:05/11/17 Report#: [id number] Adm Dt: 05/09/17 Dis Dt: Comments: STUDY: MR Lumbar W/O Contrast; 05/11/2017 8:45 am INDICATION: left lower extremity weakness. Weakness for 1 day, patient walking with a cane. COMPARISON: None. ACCESSION NUMBER(S): [id number] ORDERING CLINICIAN: Mathew Miller TECHNIQUE: [place] STIR and sagittal and axial T1 and T2 weighted images of the lumbar spine were acquired. FINDINGS: Alignment: There is a transitional vertebra at the lumbosacral junction with large transverse processes bilaterally that appear to abut the sacrum more so on the left. There are 5 lumbar type vertebrae superior to this. The transitional vertebra will be labeled S1. There is a fully formed disc between the transitional vertebra and the sacrum. L5 has minimal anterolisthesis relative to S1 with bilateral L5 spondylolysis. The spine curves mildly convex to the left in the mid-lumbar region. Vertebrae/Intervertebral Discs: The vertebral bodies demonstrate expected height.The marrow signal is within normal limits. The discs have degenerative desiccation from L3-4 through else 1 S2 with loss of height especially at L5-S1. Conus: The lower thoracic cord appears unremarkable. The conus terminates at L1. L1-2 thru L3-4: No disc protrusion or significant stenosis noted. L4-5: The lateral recesses and foramina are stenosed bilaterally secondary to disc bulge and facet hypertrophy more so on the right. L5-S1: Disc bulge with more focal central protrusion stenoses the lateral recesses and foramina bilaterally more severely on the left. S1-S2: No disc protrusion or stenosis noted. The prevertebral and posterior paraspinous soft tissues are unremarkable. IMPRESSION: 1. A transitional vertebra is present at the lumbosacral junction with large transverse processes bilaterally that appeared abut the sacrum more so on the left. This vertebra was labeled S1 for the dictation. There are 5 lumbar type vertebrae superior to this. 2. Bilateral L5 spondylolysis with minimal anterolisthesis of L5. L5-S1 disc bulge with more focal central protrusion stenoses the lateral recesses the and foramina bilaterally more severely on the left. 3. L4-5 lateral recesses and foramina are stenosed bilaterally secondary to disc bulge and facet hypertrophy more prominent on the right. Dictated by: Johnie Flores Electronically Signed by: Johnie Flores 05/11/2017 10:36 AM Normal [facility] Magnesium $$on 05-11-2017 Magnesium 2.2 mg/dL Normal 1.8-2.4 [facility] Comment on above: Performed By: #### C BC, BMP, LDLP ####[facility] [place] [address] Neurology Progress Noteon Neurology Progress Note [facility] Patient: VELIA BAGLEY [address] [facility] MR#: [id number] [place], [place] [address] : 1960 OrdSindi Clarke: Dept: PDOC Loc: 8 [id number] Neurology Progress Note Service Dt: 05/11/17 Report#: [id number] Adm Dt: 05/09/17 Dis Dt: Addendum entered by Mathew Miller MD on 05/11/17 1700 Neurology Progress Note - Patient Visit Reason Visit Reason: WEAKNESS - Chief Complaint Chief Complaint: Left lower extremity weakness - I O/Vital Signs I O/VS: Intake/Output/Wt 05/08/17 05/09/17 05/10/17 05/11/17 23:59 23:59 23:59 23:59 Intake Total 480 480 Balance 480 480 Weight 100 kg Intake: Oral 480 480 Other: Height 1.78 m PVR via Bladder Scan 237 Amount Bladder Scan Amount 167 Vital Signs (last 24 hrs) Temp Pulse Resp BP Pulse Ox 05/11/17 16:48 36.5 C 99 H 18 120/79 96 05/11/17 14:00 36.4 C L 110 H 20 134/76 98 05/11/17 13:33 106 H 20 05/11/17 10:53 95 H 18 05/11/17 10:52 95 H 11 L 05/11/17 10:51 95 H 18 05/11/17 10:00 36.1 C L 97 H 18 111/67 96 05/11/17 06:00 36.2 C L 90 18 120/82 96 05/10/17 22:00 36.6 C 107 H 18 123/76 95 05/10/17 19:07 108 H 18 05/10/17 19:05 108 H 18 05/10/17 19:04 108 H 18 05/10/17 18:00 36.8 C 102 H 16 145/88 H 97 - Lab Diagnostic Data Diagrams: 05/11/17 07:06 05/11/17 07:06 Labs: Hematology (last 24 hrs) 05/11/17 07:06 WBC 7.2 RBC 4.90 Hgb 14.8 Hct 44.9 MCV 91.6 MCH 30.2 MCHC 33.0 RDW 14.4 Plt Count 217 MPV 9.2 Immature Gran % (Auto) 0.7 Neut % (Auto) 69 Lymph % (Auto) 20 L [place] % (Auto) 8 Eos % (Auto) 1 Baso % (Auto) 1 Nucleat RBC Rel Count 0.0 Immature Gran # (Auto) 0.1 Neut # (Auto) 5.0 Lymph # (Auto) 1.4 [place] # (Auto) 0.6 Eos # (Auto) 0.1 Baso # (Auto) 0.0 L Chemistry (last 24 hrs) 05/11/17 07:06 Sodium 142 Potassium 3.7 D Chloride 110 H Carbon Dioxide 22 Anion Gap 13.7 BUN 26 H Creatinine 1.0 Estim Creat Clear Calc 85 L Est GFR ( Amer) >60 Est GFR (Non-Af Amer) >60 Fasting Glucose 112 H Calcium 8.3 L Magnesium 2.2 Total Bilirubin 0.6 AST 14 L ALT 25 Alkaline Phosphatase 87 Total Protein 6.2 L Albumin 3.3 L - Medications Meds: Current Medications Acetaminophen (Tylenol) 650 mg PO Q4 PRN PRN Reason: Pain (mild)/Temp above 38.3 C Last Admin: 05/10/17 06:33 Dose: 650 mg Albuterol Sulfate (Proventil Mdi Hfa (Sp)) 2 puff IN Q6(RESP) PRN PRN Reason: Shortness of Breath Albuterol Sulfate (Proventil) 3 ml IN Q2(RESP) PRN PRN Reason: Shortness of Breath Last Admin: 05/11/17 13:33 Dose: 3 ml Amitriptyline HCl (Elavil) 10 mg PO QHS [facility] Last Admin: 05/10/17 23:03 Dose: 10 mg Apixaban (Eliquis) 5 mg PO BID [facility] Last Admin: 05/11/17 09:04 Dose: 5 mg Celecoxib (Celebrex) 400 mg PO BID [facility] Last Admin: 05/11/17 09:04 Dose: 400 mg Dextrose (Dextrose Syringe) 50 ml IV Q15M PRN PRN Reason: Hypoglycemia Diazepam (Valium) 10 mg PO TID PRN PRN Reason: Anxiety Last Admin: 05/10/17 15:25 Dose: 10 mg Fluticasone Propionate (Flonase) 1 spray EACH NSTRL DAILY [facility] Last Admin: 05/11/17 09:04 Dose: Not Given Glucagon (Glucagon) 1 mg IM Q15M PRN PRN Reason: Hypoglycemia Hydrochlorothiazide (Esidrix) 25 mg PO DAILY [facility] Last Admin: 05/11/17 09:04 Dose: 25 mg Potassium Chloride 40 meq/ (Sodium Chloride) 270 mls @ 67.5 mls/hr IVPB LAB PRN PRN Reason: HYPOKALEMIA Losartan Potassium (Cozaar) 100 mg PO DAILY [facility] Last Admin: 05/11/17 09:04 Dose: 100 mg Montelukast Sodium (Singulair) 10 mg PO SUPPER [facility] Last Admin: 05/10/17 17:19 Dose: 10 mg Almotriptan 12.5 Mg 0 each PO VARIABLE PRN PRN Reason: MIGRAINE Potassium Bicarbonate (K-Lyte) 50 meq PO LAB PRN; Protocol PRN Reason: Based on Lab Parameters Last Admin: 05/09/17 16:49 Dose: 50 meq Potassium Chloride (K-Dur) 60 meq PO DAILY [facility] Pregabalin (Lyrica) 200 mg PO Q12 [facility] Last Admin: 05/11/17 09:04 Dose: 200 mg Fluticasone/Salmeterol (Advair 250/50 Mcg Inhaler) 1 puff IN BID(RESP) [facility] Last Admin: 05/11/17 10:51 Dose: 1 puff Tamsulosin HCl (Flomax) 400 mcg PO QHS [facility] Last Admin: 05/10/17 23:02 Dose: 400 mcg Tiotropium [place] (Spiriva) 1 puff IN DAILY(RESP) [facility] Last Admin: 05/11/17 10:52 Dose: 1 puff Topiramate (Topamax) 100 mg PO Q12 [facility] Last Admin: 05/11/17 09:03 Dose: 100 mg Allergies/Adv: Allergies Allergy/AdvReac Type Severity Reaction Status Date / Time baclofen Allergy Unknown Verified 05/09/17 05:29 ciprofloxacin [From Cipro] Allergy Swelling Verified 05/09/17 05:29 diazepam [From Valium] Allergy Unknown Verified 05/09/17 05:29 indomethacin [From Indocin] Allergy Rash Verified 05/09/17 05:29 Penicillins Allergy Rash Verified 05/09/17 05:29 Sulfa (Sulfonamide Allergy Shortness Verified 05/09/17 05:29 Antibiotics) of Breath - Assessment/Plan (1) Left leg weakness Status: Acute Current Visit: Yes Plan: 05/09/17 15:22 The patient is stable to slightly improved from a neurological standpoint. It is certainly possible that the patient suffered a small cerebral infarction not seen on the MRI of the brain. There does not appear to be any significant abnormality on the MRI of the lumbar spine to account for his weakness. The patient should continue all of his medicines and stroke risk factor modification. I will sign off for now. The patient should follow up with me in 2 months as an outpatient. I believe the patient would benefit from a stay in rehabilitation. 05/09/17 15:22 05/09/17 15:25 05/10/17 16:48 05/11/17 17:03 05/11/17 17:05 05/11/17 1705 End of Addendum Neurology Progress Note - Patient Visit Reason Visit Reason: WEAKNESS - Chief Complaint Chief Complaint: Left lower extremity weakness - Subjective Narrative HPI/ROS: The patient is a 57-year-old white male with a history of multiple medical problems who sees me as an outpatient. The patient states that he was doing well until the day of admission at 4:30 PM. At that time he noted the onset of left lower extremity weakness. The patient was taken to and evaluated in the emergency room for an acute stroke. He had a CT scan of the brain that was negative for any acute process. The patient's NIH stroke scale score was 2. The ER staff called me and we discussed the case. The patient was to be transferred to [facility] for further workup and care. The patient states that he is still weak in his left lower extremity and denies any new neurological problems. He feels that the weakness may be slightly better today. - Review of Systems Neurological: Reports: weakness. Denies: headache, numbness - I O/Vital Signs I O/VS: Intake/Output/Wt 05/08/17 05/09/17 05/10/17 05/11/17 23:59 23:59 23:59 23:59 Intake Total 480 480 Balance 480 480 Weight 100 kg Intake: Oral 480 480 Other: Height 1.78 m PVR via Bladder Scan 237 Amount Bladder Scan Amount 167 Vital Signs (last 24 hrs) Temp Pulse Resp BP Pulse Ox 05/11/17 16:48 36.5 C 99 H 18 120/79 96 05/11/17 14:00 36.4 C L 110 H 20 134/76 98 05/11/17 13:33 106 H 20 05/11/17 10:53 95 H 18 05/11/17 10:52 95 H 11 L 05/11/17 10:51 95 H 18 05/11/17 10:00 36.1 C L 97 H 18 111/67 96 05/11/17 06:00 36.2 C L 90 18 120/82 96 05/10/17 22:00 36.6 C 107 H 18 123/76 95 05/10/17 19:07 108 H 18 05/10/17 19:05 108 H 18 05/10/17 19:04 108 H 18 05/10/17 18:00 36.8 C 102 H 16 145/88 H 97 - Objective Narrative Patient Exam: The patient's mental status testing shows that the patient is alert and oriented ?3 with no evidence of any aphasia or dysarthria. The patient's cranial nerve testing 2, 3, 4, 5, 6, and 7 are all within normal limits. The patient's motor testing shows normal tone, bulk and power in the upper and lower extremities bilaterally with exception that the patient's left lower extremity strength is one out of 5 proximally and with dorsiflexion. The patient's quadriceps strength is 5 minus over 5. - Lab Diagnostic Data Diagrams: 05/11/17 07:06 05/11/17 07:06 Labs: Hematology (last 24 hrs) 05/11/17 07:06 WBC 7.2 RBC 4.90 Hgb 14.8 Hct 44.9 MCV 91.6 MCH 30.2 MCHC 33.0 RDW 14.4 Plt Count 217 MPV 9.2 Immature Gran % (Auto) 0.7 Neut % (Auto) 69 Lymph % (Auto) 20 L [place] % (Auto) 8 Eos % (Auto) 1 Baso % (Auto) 1 Nucleat RBC Rel Count 0.0 Immature Gran # (Auto) 0.1 Neut # (Auto) 5.0 Lymph # (Auto) 1.4 [place] # (Auto) 0.6 Eos # (Auto) 0.1 Baso # (Auto) 0.0 L Chemistry (last 24 hrs) 05/11/17 07:06 Sodium 142 Potassium 3.7 D Chloride 110 H Carbon Dioxide 22 Anion Gap 13.7 BUN 26 H Creatinine 1.0 Estim Creat Clear Calc 85 L Est GFR ( Amer) >60 Est GFR (Non-Af Amer) >60 Fasting Glucose 112 H Calcium 8.3 L Magnesium 2.2 Total Bilirubin 0.6 AST 14 L ALT 25 Alkaline Phosphatase 87 Total Protein 6.2 L Albumin 3.3 L Diagnostic Data: The patient's carotid ultrasound showed no significant stenosis bilaterally. The MRI of the lumbar spine shows mild degenerative changes but no significant lumbar stenosis was noted. I did review the images of the MRI of the lumbar spine. - Medications Meds: Current Medications Acetaminophen (Tylenol) 650 mg PO Q4 PRN PRN Reason: Pain (mild)/Temp above 38.3 C Last Admin: 05/10/17 06:33 Dose: 650 mg Albuterol Sulfate (Proventil Mdi Hfa (Sp)) 2 puff IN Q6(RESP) PRN PRN Reason: Shortness of Breath Albuterol Sulfate (Proventil) 3 ml IN Q2(RESP) PRN PRN Reason: Shortness of Breath Last Admin: 05/11/17 13:33 Dose: 3 ml Amitriptyline HCl (Elavil) 10 mg PO QHS [facility] Last Admin: 05/10/17 23:03 Dose: 10 mg Apixaban (Eliquis) 5 mg PO BID [facility] Last Admin: 05/11/17 09:04 Dose: 5 mg Celecoxib (Celebrex) 400 mg PO BID [facility] Last Admin: 05/11/17 09:04 Dose: 400 mg Dextrose (Dextrose Syringe) 50 ml IV Q15M PRN PRN Reason: Hypoglycemia Diazepam (Valium) 10 mg PO TID PRN PRN Reason: Anxiety Last Admin: 05/10/17 15:25 Dose: 10 mg Fluticasone Propionate (Flonase) 1 spray EACH NSTRL DAILY [facility] Last Admin: 05/11/17 09:04 Dose: Not Given Glucagon (Glucagon) 1 mg IM Q15M PRN PRN Reason: Hypoglycemia Hydrochlorothiazide (Esidrix) 25 mg PO DAILY [facility] Last Admin: 05/11/17 09:04 Dose: 25 mg Potassium Chloride 40 meq/ (Sodium Chloride) 270 mls @ 67.5 mls/hr IVPB LAB PRN PRN Reason: HYPOKALEMIA Losartan Potassium (Cozaar) 100 mg PO DAILY [facility] Last Admin: 05/11/17 09:04 Dose: 100 mg Montelukast Sodium (Singulair) 10 mg PO SUPPER [facility] Last Admin: 05/10/17 17:19 Dose: 10 mg Almotriptan 12.5 Mg 0 each PO VARIABLE PRN PRN Reason: MIGRAINE Potassium Bicarbonate (K-Lyte) 50 meq PO LAB PRN; Protocol PRN Reason: Based on Lab Parameters Last Admin: 05/09/17 16:49 Dose: 50 meq Potassium Chloride (K-Dur) 60 meq PO DAILY [facility] Pregabalin (Lyrica) 200 mg PO Q12 [facility] Last Admin: 05/11/17 09:04 Dose: 200 mg Fluticasone/Salmeterol (Advair 250/50 Mcg Inhaler) 1 puff IN BID(RESP) [facility] Last Admin: 05/11/17 10:51 Dose: 1 puff Tamsulosin HCl (Flomax) 400 mcg PO QHS [facility] Last Admin: 05/10/17 23:02 Dose: 400 mcg Tiotropium [place] (Spiriva) 1 puff IN DAILY(RESP) [facility] Last Admin: 05/11/17 10:52 Dose: 1 puff Topiramate (Topamax) 100 mg PO Q12 [facility] Last Admin: 05/11/17 09:03 Dose: 100 mg Allergies/Adv: Allergies Allergy/AdvReac Type Severity Reaction Status Date / Time baclofen Allergy Unknown Verified 05/09/17 05:29 ciprofloxacin [From Cipro] Allergy Swelling Verified 05/09/17 05:29 diazepam [From Valium] Allergy Unknown Verified 05/09/17 05:29 indomethacin [From Indocin] Allergy Rash Verified 05/09/17 05:29 Penicillins Allergy Rash Verified 05/09/17 05:29 Sulfa (Sulfonamide Allergy Shortness Verified 05/09/17 05:29 Antibiotics) of Breath - Assessment/Plan (1) Left leg weakness Status: Acute Current Visit: Yes Plan: 05/09/17 15:22 The patient is stable to slightly improved from a neurological standpoint. It is certainly possible that the patient suffered a small cerebral infarction not seen on the MRI of the brain. There does not appear to be any significant abnormality on the MRI of the lumbar spine to account for his weakness. The patient should continue all of his medicines and stroke risk factor modification. I will sign off for now. The patient should follow up with me in the office as scheduled. I believe the patient would benefit from a stay in rehabilitation. 05/09/17 15:22 05/09/17 15:25 05/10/17 16:48 05/11/17 17:03 Normal [facility] Urology Progress Noteon Urology Progress Note [facility] Patient: VELIA BAGLEY[address] [facility] MR#: [id number] [place], [place] [address] : 1960 Ord[address] Clarke: Dept: PDOC Loc: [id number] Urology Progress Note Service Dt: 05/11/17 Report#: [id number] Adm Dt: 05/09/17 Dis Dt: Addendum entered by Napoleon Sweeney MD on 05/11/17 1058 Physician Supervisory Note Supervisory Addendum: Patient seen and I agree with the Physician Silk Brusher's note. 05/11/17 1058 End of Addendum Urology Progress Note - Patient Visit Reason Visit Reason: WEAKNESS - Chief Complaint Chief Complaint: Left lower extremity weakness - Subjective Narrative HPI/ROS: No new complaints, voiding well. - I O/Vital Signs I O/VS: Intake/Output/Wt 05/08/17 05/09/17 05/10/17 05/11/17 23:59 23:59 23:59 23:59 Intake Total 480 Balance 480 Weight 100 kg Intake: Oral 480 Other: Height 1.78 m PVR via Bladder Scan 237 Amount Vital Signs (last 24 hrs) Temp Pulse Resp BP Pulse Ox 05/11/17 06:00 36.2 C L 90 18 120/82 96 05/10/17 22:00 36.6 C 107 H 18 123/76 95 05/10/17 19:07 108 H 18 05/10/17 19:05 108 H 18 05/10/17 19:04 108 H 18 05/10/17 18:00 36.8 C 102 H 16 145/88 H 97 05/10/17 14:00 36.8 C 98 H 18 125/87 95 - Patient Exam General appearance: Positive: alert, in no apparent distress GI/Abdominal: Positive: soft, nontender, nondistended - Lab Diagnostic Data Diagrams: 05/11/17 07:06 05/11/17 07:06 Labs (last 24 hrs): Hematology 05/11/17 07:06 WBC 7.2 RBC 4.90 Hgb 14.8 Hct 44.9 MCV 91.6 MCH 30.2 MCHC 33.0 RDW 14.4 Plt Count 217 MPV 9.2 Immature Gran % (Auto) 0.7 Neut % (Auto) 69 Lymph % (Auto) 20 L [place] % (Auto) 8 Eos % (Auto) 1 Baso % (Auto) 1 Nucleat RBC Rel Count 0.0 Immature Gran # (Auto) 0.1 Neut # (Auto) 5.0 Lymph # (Auto) 1.4 [place] # (Auto) 0.6 Eos # (Auto) 0.1 Baso # (Auto) 0.0 L Chemistry 05/11/17 07:06 Sodium 142 Potassium 3.7 D Chloride 110 H Carbon Dioxide 22 Anion Gap 13.7 BUN 26 H Creatinine 1.0 Estim Creat Clear Calc 85 L Est GFR ( Amer) >60 Est GFR (Non-Af Amer) >60 Fasting Glucose 112 H Calcium 8.3 L Magnesium 2.2 Total Bilirubin 0.6 AST 14 L ALT 25 Alkaline Phosphatase 87 Total Protein 6.2 L Albumin 3.3 L - Medications Meds: Current Medications Acetaminophen (Tylenol) 650 mg PO Q4 PRN PRN Reason: Pain (mild)/Temp above 38.3 C Last Admin: 05/10/17 06:33 Dose: 650 mg Albuterol Sulfate (Proventil Mdi Hfa (Sp)) 2 puff IN Q6(RESP) PRN PRN Reason: Shortness of Breath Albuterol Sulfate (Proventil) 3 ml IN Q2(RESP) PRN PRN Reason: Shortness of Breath Last Admin: 05/10/17 19:07 Dose: 3 ml Amitriptyline HCl (Elavil) 10 mg PO QHS [facility] Last Admin: 05/10/17 23:03 Dose: 10 mg Apixaban (Eliquis) 5 mg PO BID [facility] Last Admin: 05/11/17 09:04 Dose: 5 mg Celecoxib (Celebrex) 400 mg PO BID [facility] Last Admin: 05/11/17 09:04 Dose: 400 mg Dextrose (Dextrose Syringe) 50 ml IV Q15M PRN PRN Reason: Hypoglycemia Diazepam (Valium) 10 mg PO TID PRN PRN Reason: Anxiety Last Admin: 05/10/17 15:25 Dose: 10 mg Fluticasone Propionate (Flonase) 1 spray EACH NSTRL DAILY [facility] Last Admin: 05/11/17 09:04 Dose: Not Given Glucagon (Glucagon) 1 mg IM Q15M PRN PRN Reason: Hypoglycemia Hydrochlorothiazide (Esidrix) 25 mg PO DAILY [facility] Last Admin: 05/11/17 09:04 Dose: 25 mg Potassium Chloride 40 meq/ (Sodium Chloride) 270 mls @ 67.5 mls/hr IVPB LAB PRN PRN Reason: HYPOKALEMIA Losartan Potassium (Cozaar) 100 mg PO DAILY [facility] Last Admin: 05/11/17 09:04 Dose: 100 mg Montelukast Sodium (Singulair) 10 mg PO SUPPER [facility] Last Admin: 05/10/17 17:19 Dose: 10 mg Almotriptan 12.5 Mg 0 each PO VARIABLE PRN PRN Reason: MIGRAINE Potassium Bicarbonate (K-Lyte) 50 meq PO LAB PRN; Protocol PRN Reason: Based on Lab Parameters Last Admin: 05/09/17 16:49 Dose: 50 meq Potassium Chloride (K-Mad[place]) 20 meq PO TID [facility] Last Admin: 05/11/17 09:04 Dose: 20 meq Pregabalin (Lyrica) 200 mg PO Q12 [facility] Last Admin: 05/11/17 09:04 Dose: 200 mg Fluticasone/Salmeterol (Advair 250/50 Mcg Inhaler) 1 puff IN BID(RESP) [facility] Last Admin: 05/10/17 19:04 Dose: 1 puff Tamsulosin HCl (Flomax) 400 mcg PO QHS [facility] Last Admin: 05/10/17 23:02 Dose: 400 mcg Tiotropium [place] (Spiriva) 1 puff IN DAILY(RESP) [facility] Last Admin: 05/10/17 07:58 Dose: 1 puff Topiramate (Topamax) 100 mg PO Q12 [facility] Last Admin: 05/11/17 09:03 Dose: 100 mg Allergies/Adv: Allergies Allergy/AdvReac Type Severity Reaction Status Date / Time baclofen Allergy Unknown Verified 05/09/17 05:29 ciprofloxacin [From Cipro] Allergy Swelling Verified 05/09/17 05:29 diazepam [From Valium] Allergy Unknown Verified 05/09/17 05:29 indomethacin [From Indocin] Allergy Rash Verified 05/09/17 05:29 Penicillins Allergy Rash Verified 05/09/17 05:29 Sulfa (Sulfonamide Allergy Shortness Verified 05/09/17 05:29 Antibiotics) of Breath - Assessment/Plan (1) Urinary retention Status: Acute Current Visit: Yes Plan: 05/11/17 10:44 Voiding well, PVR for this am pending, see orders Continue Flomax. If DC is eminent F/U in 1-2 weeks Normal [facility] Consultationon 05-10-2017 Consultation [facility] Patient: VELIA BAGLEY [address] MR#: [id number] [place] [address] : [address] Chris Belcher MD Dept: Transcribed Reports Loc: [id number] Consultation Service Dt: 05/10/17 Report#: [id number] Adm Dt: 05/09/17 Dis Dt: CONSULTATION REPORT DATE OF CONSULTATION: 05/10/2017. CHIEF COMPLAINT: Urinary hesitancy. HISTORY OF PRESENT ILLNESS: The patient is a 57-year-old white male with multiple medical problems. The patient was admitted after experiencing acute left leg weakness and paresthesia. He was admitted to evaluate for possible CVA. The patient reports a family history of prostate cancer in his brother. The patient complains it is difficult to initiate urination. This has been going on for about 3 months. He states that his stream is weak. He voids frequently as he tries to void and not much comes out. He denies any nocturia. He denies any gross hematuria. He has no history of stones. He had a urinary tract infection while in college, but none since. The patient has been seen in the past by urology at the [facility] and states that for approximately 6 months in 2011 he required self-catheterization. PAST MEDICAL HISTORY: Left lower extremity DVT, history of asthma, migraines, history of torticollis with Botox injections, hip bursitis, peripheral neuropathy, chronic lumbar radiculopathy, carpal tunnel syndrome, osteoarthritis, hypertension. HOME MEDICATIONS: Albuterol, almotriptan malate, amitriptyline, Eliquis, Symbicort inhaler, Celebrex, Flonase, [place], losartan/hydrochlorothia zide, Singulair, Klor-Con, Lyrica, Spiriva, Topamax, Valium, Zanaflex. ALLERGIES: Baclofen, Cipro, diazepam, indomethacin, penicillin, and sulfa. FAMILY HISTORY: Brother with prostate cancer. SOCIAL HISTORY: Denies use of alcohol or tobacco. REVIEW OF SYSTEMS: Negative except as above. PHYSICAL EXAMINATION: On physical exam, the patient is awake, alert and oriented, in no acute distress. He is breathing comfortably. Pulse is regular. Abdomen is obese, soft, nontender, nondistended. Bowel sounds are present. There is no CVA tenderness. exam reveals normal circumcised phallus with adequate meatus. Testicles descended bilaterally without mass or tenderness. Digital rectal exam reveals approximately 30 grams smooth, symmetric prostate. LABORATORY DATA: Labs are reviewed. His creatinine is 1.1. Postvoid residual has been ordered and is pending. ASSESSMENT: Urinary hesitancy, benign prostate hypertrophy, history of retention. Family history of prostate cancer. PLAN: We will check postvoid residual. We will start the patient on Flomax. Further recommendations to follow. Thank you for courtesy of this consultation. Swapnil Kaiser#: [id number] C#: [id number] DT#: 05/10/2017 11:21:23 05/11/17 1042 Normal [facility] General Medical Progress Not penny 05-10-2017 General Medical Progress Note [facility] Patient: VELIA [address]AGLEY[address] MR#: [id number] [place], [place] [address] : 1960 OrdSindi Clarke: Dept: PDOC Loc: [id number] General Medical Progress Note Service Dt: 05/10/17 Report#: [id number] Adm Dt: 05/09/17 Dis Dt: General-Medical Progress Note - Patient Visit Reason Visit Reason: WEAKNESS - Chief Complaint Chief Complaint: Left lower extremity weakness - Subjective Narrative HPI/ROS: The patient denies discomfort, he says to me that he felt to be short of breath this morning, he recently got a breathing treatment, he is not currently experiencing any shortness of breath, no accessory muscle use, no speaking in short sentences, no chest pain He does have a history of back problems previously known and previously investigated, he had an MRI of the lower back, results not available to me at the time of dictation, the MRI to place almost a month ago, he basically stated that only a few days ago he experienced a sudden onset of left leg weakness The left leg weakness was in fact proven as objective by the neurologist work and family life consultant, the patient had significant difficulty in raising that leg He has a history of neuropathy and low back problems, an x-ray of the low back earlier did show problems however an MRI is pending Per neurology the patient needs rehabilitation since he is not ambulatory due to the objective leg weakness on the left side He was tachycardic when seen by me however the nursing vital parameters show normal numbers in the 70s mostly The patient is on a blood thinner therefore the possibility of a blood clot is quite low The patient does have a history of asthma requiring aerosols - Review of Systems All systems: 10 point review of systems negative except for what is stated in HPI - I O/Vital Signs I O/VS: Vital Signs Temp 36.7 C 05/10/17 10:00 Pulse 88 05/10/17 10:36 Resp 18 05/10/17 10:36 BP 132/87 05/10/17 10:00 Pulse Ox 98 05/10/17 10:00 - Patient Exam General appearance: alert, in no apparent distress Limitations: Positive: physical limitation Head: Positive: normal inspection Eyes: Positive: normal appearance Pupils: Positive: equal and reactive ENT: Positive: mucous membranes moist Neck: Positive: normal inspection Respiratory: Positive: wheezes (A few) Cardiovascular: Positive: regular rate, tachycardia, +S1, +S2 GI/Abdominal: Positive: soft, nontender, nondistended, no organomegaly palpable, normal bowel sounds Extremities: Positive: no edema, no cellulitis, bilateral pulses positive Neurological: Positive: alert, oriented X3, CN II-XII intact, other (Distal left lower extremity measurable weakness) Integumentary: Positive: warm, dry, intact, normal color - Lab Diagnostic Data Diagrams: 05/09/17 09:32 05/09/17 18:10 Chemistry: Chemistry (Last 24hrs) 05/09/17 05/09/17 18:10 14:20 Potassium 4.5 D 3.3 L - Medications Meds: Current Medications Acetaminophen (Tylenol) 650 mg PO Q4 PRN PRN Reason: Pain (mild)/Temp above 38.3 C Last Admin: 05/10/17 06:33 Dose: 650 mg Albuterol Sulfate (Proventil Mdi Hfa (Sp)) 2 puff IN Q6(RESP) PRN PRN Reason: Shortness of Breath Albuterol Sulfate (Proventil) 3 ml IN Q2(RESP) PRN PRN Reason: Shortness of Breath Last Admin: 05/10/17 10:36 Dose: 3 ml Apixaban (Eliquis) 5 mg PO BID [facility] Last Admin: 05/10/17 10:04 Dose: 5 mg Dextrose (Dextrose Syringe) 50 ml IV Q15M PRN PRN Reason: Hypoglycemia Fluticasone Propionate (Flonase) 1 spray EACH NSTRL DAILY [facility] Last Admin: 05/10/17 10:04 Dose: 1 spray Glucagon (Glucagon) 1 mg IM Q15M PRN PRN Reason: Hypoglycemia Potassium Chloride 40 meq/ (Sodium Chloride) 270 mls @ 67.5 mls/hr IVPB LAB PRN PRN Reason: HYPOKALEMIA Montelukast Sodium (Singulair) 10 mg PO SUPPER [facility] Last Admin: 05/09/17 17:34 Dose: 10 mg Potassium Bicarbonate (K-Lyte) 50 meq PO LAB PRN; Protocol PRN Reason: Based on Lab Parameters Last Admin: 05/09/17 16:49 Dose: 50 meq Potassium Chloride (K-Madison) 20 meq PO TID [facility] Last Admin: 05/10/17 10:04 Dose: 20 meq Pregabalin (Lyrica) 200 mg PO Q12 [facility] Last Admin: 05/10/17 10:04 Dose: 200 mg Fluticasone/Salmeterol (Advair 250/50 Mcg Inhaler) 1 puff IN BID(RESP) [facility] Last Admin: 05/10/17 07:57 Dose: 1 puff Tamsulosin HCl (Flomax) 400 mcg PO QHS [facility] Tiotropium [place] (Spiriva) 1 puff IN DAILY(RESP) [facility] Last Admin: 05/10/17 07:58 Dose: 1 puff Topiramate (Topamax) 100 mg PO Q12 [facility] Last Admin: 05/10/17 10:04 Dose: 100 mg Allergies/Adv: Allergies Allergy/AdvReac Type Severity Reaction Status Date / Time baclofen Allergy Unknown Verified 05/09/17 05:29 ciprofloxacin [From Cipro] Allergy Swelling Verified 05/09/17 05:29 diazepam [From Valium] Allergy Unknown Verified 05/09/17 05:29 indomethacin [From Indocin] Allergy Rash Verified 05/09/17 05:29 Penicillins Allergy Rash Verified 05/09/17 05:29 Sulfa (Sulfonamide Allergy Shortness Verified 05/09/17 05:29 Antibiotics) of Breath - Assessment/Plan (1) Left leg weakness Status: Acute Current Visit: Yes (2) Tachycardia Status: Acute Current Visit: Yes (3) Asthma Status: Acute Current Visit: Yes (4) Chronic lumbar radiculopathy Status: Chronic Current Visit: Yes (5) H/O deep venous thrombosis Status: Acute Current Visit: Yes (6) Idiopathic neuropathy Status: Acute Current Visit: Yes (7) Migraine Status: Acute Current Visit: Yes - Comments Impression: 05/10/17 13:28 The presence of fairly recent onset left lower extremity weakness is certainly concerning Pertinent the neurologist work and family life consultant the patient needs physical therapy and rehabilitation and I will work on accommodating this The patient is a full admission He also has asthma requiring aerosols or inhalers His tachycardia without other symptoms and without hypoxia is very likely indicative of the use of aerosols for asthma however I will keep an eye on this and, if persistent, an EKG for further evaluation would be needed Continue present care, reintroduce some of the home medications including the when necessary Valium which is an excellent muscle relaxant DVT GI prophylaxis measures Normal [facility] Hip Lt Incl Pelvis: 2-3 [facility] n 05-10-2017 Hip Lt Incl Pelvis: 2-3 [facility] Patient: VELIA BAGLEY [address] [facility] MR#: [id number] [place], [place] [address] : 1960 Ord[address] Dr.: Mathew Miller MD Dept: Diagnostic Imaging Loc: 8W 842-1 DI REPORT Service Dt:05/09/17 Report#: [id number] Adm Dt: 05/09/17 Dis Dt: Comments: STUDY: Pelvis and left hip date05/09/2017. INDICATION: Pain and weakness COMPARISON: None. ACCESSION NUMBER(S): [id number] ORDERING CLINICIAN: Mathew Miller TECHNIQUE: AP pelvis and AP and frogleg lateral left hip radiographs. FINDINGS: No fracture or dislocation is evident.Mild degenerative changes seen of the hips.The soft tissues are grossly unremarkable. IMPRESSION: Mild degenerative changes seen of the hips. Dictated by: Francis Romero Electronically Signed by: Francis Romero 05/10/2017 12:56 PM Normal [facility] Lumbar Spine W/Flex/Exten-6V wson 05-10-2017 Lumbar Spine W/Flex/Exten-6Vws [facility] Patient: VELIA BAGLEY MR#: [id number] [place], [place] [address] : [address] Mathew Miller MD Dept: Diagnostic Imaging Loc: DI REPORT Service Dt:05/09/17 Report#: [id number] Adm Dt: 05/09/17 Dis Dt: Comments: STUDY: Lumbar spine dated 05/09/2017. INDICATION: Pain. COMPARISON: None. ACCESSION NUMBER(S): [id number] ORDERING CLINICIAN: Mathew Miller TECHNIQUE: AP, lateral, lateral flexion, lateral extension, and L5-S1 spot radiographs of the lumbar spine radiographs of the lumbar spine. FINDINGS: There are 6 lumbar type vertebral bodies. The lowermost segment will be called L 6 for the purpose of this exam. There is a bifid spinous process at L 6. There is levo convexity of the thoracolumbar spine. There is moderate to severe L5-6 and L6-S1 facet degenerative change. Mild degenerative changes seen of the remainder of the visualized spine. IMPRESSION: Transitional lumbosacral anatomy and degenerative change as above. Dictated by: Francis Romero Electronically Signed by: Francis Romero 05/10/2017 12:58 PM Normal [facility] Neurology Progress Noteon Neurology Progress Note [facility] Patient: VELIA BAGLEY MR#: [id number] [place], [place] [address] : 1960 Ord. : Dept: PDOC Loc: Neurology Progress Note Service Dt: 05/10/17 Report#: [id number] Adm Dt: 05/09/17 Dis Dt: Neurology Progress Note - Patient Visit Reason Visit Reason: WEAKNESS - Chief Complaint Chief Complaint: Left lower extremity weakness - Subjective Narrative HPI/ROS: The patient is a 57-year-old white male with a history of multiple medical problems who sees me as an outpatient. The patient states that he was doing well until the day of admission at 4:30 PM. At that time he noted the onset of left lower extremity weakness. The patient was taken to and evaluated in the emergency room for an acute stroke. He had a CT scan of the brain that was negative for any acute process. The patient's NIH stroke scale score was 2. The ER staff called me and we discussed the case. The patient was to be transferred to [facility] for further workup and care. The patient states that he is still weak in his left lower extremity and denies any new neurological problems. - Review of Systems Neurological: Reports: weakness. Denies: headache, numbness - I O/Vital Signs I O/VS: Intake/Output/Wt 05/07/17 05/08/17 05/09/17 05/10/17 23:59 23:59 23:59 23:59 Weight 100 kg Other: Height 1.78 m Vital Signs (last 24 hrs) Temp Pulse Resp BP Pulse Ox 05/10/17 14:00 36.8 C 98 H 18 125/87 95 05/10/17 10:36 88 18 05/10/17 10:00 36.7 C 75 18 132/87 98 05/10/17 07:59 76 18 05/10/17 07:58 76 18 05/10/17 07:57 76 16 05/10/17 06:00 36.3 C L 75 16 127/83 95 05/10/17 02:00 36.6 C 74 12 122/74 95 05/09/17 22:00 36.4 C L 106 H 17 124/83 93 05/09/17 20:22 96 H 18 05/09/17 18:00 36.8 C 98 H 18 122/78 98 - Objective Narrative Patient Exam: The patient's mental status testing shows that the patient is alert and oriented ?3 with no evidence of any aphasia or dysarthria. The patient's cranial nerve testing 2, 3, 4, 5, 6, and 7 are all within normal limits. The patient's motor testing shows normal tone, bulk and power in the upper and lower extremities bilaterally with exception that the patient's left lower extremity proximally and zero out of 5 and dorsiflexion is one out of 5. Plantarflexion is 4/5 and left quadricep strength is 5 minus over 5. - Lab Diagnostic Data Diagrams: 05/09/17 09:32 05/09/17 18:10 Labs: Chemistry (last 24 hrs) 05/09/17 18:10 Potassium 4.5 D Diagnostic Data: The patient's hip x-rays show degenerative changes but no fracture was noted. The patient's lumbar spine x-ray shows degenerative changes but no spondylolisthesis was noted. The patient's echocardiogram shows a normal EF and no clot was noted. - Medications Meds: Current Medications Acetaminophen (Tylenol) 650 mg PO Q4 PRN PRN Reason: Pain (mild)/Temp above 38.3 C Last Admin: 05/10/17 06:33 Dose: 650 mg Albuterol Sulfate (Proventil Mdi Hfa (Sp)) 2 puff IN Q6(RESP) PRN PRN Reason: Shortness of Breath Albuterol Sulfate (Proventil) 3 ml IN Q2(RESP) PRN PRN Reason: Shortness of Breath Last Admin: 05/10/17 10:36 Dose: 3 ml Amitriptyline HCl (Elavil) 10 mg PO QHS DARCY Apixaban (Eliquis) 5 mg PO BID [facility] Last Admin: 05/10/17 10:04 Dose: 5 mg Celecoxib (Celebrex) 400 mg PO BID [facility] Dextrose (Dextrose Syringe) 50 ml IV Q15M PRN PRN Reason: Hypoglycemia Diazepam (Valium) 10 mg PO TID PRN PRN Reason: Anxiety Last Admin: 05/10/17 15:25 Dose: 10 mg Fluticasone Propionate (Flonase) 1 spray EACH NSTRL DAILY [facility] Last Admin: 05/10/17 10:04 Dose: 1 spray Glucagon (Glucagon) 1 mg IM Q15M PRN PRN Reason: Hypoglycemia Hydrochlorothiazide (Esidrix) 25 mg PO DAILY [facility] Potassium Chloride 40 meq/ (Sodium Chloride) 270 mls @ 67.5 mls/hr IVPB LAB PRN PRN Reason: HYPOKALEMIA Losartan Potassium (Cozaar) 100 mg PO DAILY [facility] Montelukast Sodium (Singulair) 10 mg PO SUPPER [facility] Last Admin: 05/09/17 17:34 Dose: 10 mg Almotriptan 12.5 Mg 0 each PO VARIABLE PRN PRN Reason: MIGRAINE Potassium Bicarbonate (K-Lyte) 50 meq PO LAB PRN; Protocol PRN Reason: Based on Lab Parameters Last Admin: 05/09/17 16:49 Dose: 50 meq Potassium Chloride (K-Madison) 20 meq PO TID [facility] Last Admin: 05/10/17 13:53 Dose: 20 meq Pregabalin (Lyrica) 200 mg PO Q12 [facility] Last Admin: 05/10/17 10:04 Dose: 200 mg Fluticasone/Salmeterol (Advair 250/50 Mcg Inhaler) 1 puff IN BID(RESP) [facility] Last Admin: 05/10/17 07:57 Dose: 1 puff Tamsulosin HCl (Flomax) 400 mcg PO QHS [facility] Tiotropium [place] (Spiriva) 1 puff IN DAILY(RESP) [facility] Last Admin: 05/10/17 07:58 Dose: 1 puff Topiramate (Topamax) 100 mg PO Q12 [facility] Last Admin: 05/10/17 10:04 Dose: 100 mg Allergies/Adv: Allergies Allergy/AdvReac Type Severity Reaction Status Date / Time baclofen Allergy Unknown Verified 05/09/17 05:29 ciprofloxacin [From Cipro] Allergy Swelling Verified 05/09/17 05:29 diazepam [From Valium] Allergy Unknown Verified 05/09/17 05:29 indomethacin [From Indocin] Allergy Rash Verified 05/09/17 05:29 Penicillins Allergy Rash Verified 05/09/17 05:29 Sulfa (Sulfonamide Allergy Shortness Verified 05/09/17 05:29 Antibiotics) of Breath - Assessment/Plan (1) Left leg weakness Status: Acute Current Visit: Yes Plan: 05/09/17 15:22 The patient is stable from a neurological standpoint. The patient needs an MRI of the lumbar spine. The patient should continue all of his medicines and stroke risk factor modification. The patient does have a carotid ultrasound pending. The patient needs a consult with rehabilitation. Thank you very much for sending me this very interesting consultation. I will continue to follow the patient while he is in the hospital. The patient should follow up with me in the office as scheduled. I believe the patient would benefit from a stay in rehabilitation. 05/09/17 15:22 05/09/17 15:25 05/10/17 16:48 Normal [facility] Basic Metabolic Panel $$$on 05-09-2017 Potassium molar conc 2.7 mmol/L Critically abnormal 3.5-5.1 [facility] Comment on above: Result Comment: CALL ED AND REBACK RESULTS AT 1024 BY CV TO LETHA GONZALEZ Performed By: #### C BC, BMP, LDLP ####[facility] [place] [address] Anion gap 14.7 mmol/L Normal [facility] Comment on above: Performed By: #### C BC, BMP, LDLP ####[facility] [place] [address] BUN (urea nitrogen) 24 mg/dL High 7-18 [facility] Comment on above: Performed By: #### C BC, BMP, LDLP ####[facility] [place] [address] Calcium 8.7 mg/dL Normal 8.5-10.1 [facility] Comment on above: Performed By: #### C BC, BMP, LDLP ####[facility] [place] [address] Chloride 105 mmol/L Normal 98-107 [facility] Comment on above: Performed By: #### C BC, BMP, LDLP ####[facility] [place] [address] CO2 26 mmol/L Normal 21-32 [facility] Comment on above: Performed By: #### C BC, BMP, LDLP ####[facility] [place] [address] Creatinine 1.1 mg/dL Normal 0.6-1.3 [facility] Comment on above: Performed By: #### C BC, BMP, LDLP ####[facility] [place] [address] Creatinine 77 mL/min Low 94-145 [facility] Comment on above: Performed By: #### C BC, BMP, LDLP ####[facility] [place] [address] eGFR (non-black) mL/min/{1.73_m2} Normal [facility] Comment on above: Result Comment: eGFR Units of measure: mL/min/1.73 m 2 Performed By: #### C BC, BMP, LDLP ####[facility] [place] [address] Glucose mass conc 132 mg/dL High 74-106 [facility] Comment on above: Performed By: #### C BC, BMP, LDLP ####[facility] [place] [address] Sodium 143 mmol/L Normal 136-145 [facility] Comment on above: Performed By: #### C BC, BMP, LDLP ####[facility] [place] [address] Brain Without Contraston Brain Without Contrast [facility] Patient: VELIA BAGLEY [address] [facility] MR#: [id number] [place], [place] [address] : [address] Chris Belcher MD Dept: Diagnostic Imaging Loc: 8W 842-1 DI REPORT Service Dt:05/09/17 Report#: [id number] Adm Dt: 05/09/17 Dis Dt: Comments: STUDY: MR Brain Without Contrast; MR Head W/O Contrast; MR Neck W/O Contrast; 05/09/2017 10:45 am INDICATION: tia. COMPARISON: None. ACCESSION NUMBER(S): [id number]; [id number]; [id number] ORDERING CLINICIAN: Chris Belcher TECHNIQUE: Axial T2, FLAIR, DWI, gradient echo and sagittal and coronal T1 weighted images of brain were acquired. Additionally, 3D [id number] MRA of the cervical and intracranial vasculature was performed. FINDINGS: MRI scan of the brain The signal intensity within the brain is normal. There is no diffusion evidence of acute or subacute ischemic change. The there is no gradient echo image evidence of intracranial hemorrhage. There is no evidence of focal mass effect or edema. The ventricular system is within normal limits. MRA of the cervical and intracranial vasculature The cervical vasculature is widely patent. The intracranial portion of the examination demonstrates no evidence of aneurysm, focal stenosis, or major branch occlusion. IMPRESSION: Unremarkable examination. Dictated by: Sally Carr Electronically Signed by: Sally Carr 05/09/2017 12:00 PM Normal [facility] Complete Blood Count w/diff $$on 05-09-2017 Basophils Auto #/vol (Bld) 0.1 10 /uL Normal 0.04-0.9 [facility] Comment on above: Performed By: #### C RZEA GERBER LDLP ####[address] [address] Basophils/100 WBC Auto (Bld) 1 % Normal 0-1 [facility] Comment on above: Performed By: #### REZA OLIVAS, LDLP ####[facility] [place] [address] Eosinophils 0.1 10 3/uL Normal 0.03-0.6 [facility] Comment on above: Performed By: #### C REZA GERBER, LDLP ####[facility] [place] [address] Eosinophils/100 leukocytes 1 % Normal 0-3 [facility] Comment on above: Performed By: #### REZA OLIVAS, LDLP ####[facility] [place] [address] Erythrocyte distribution width Auto Ratio (RBC) 14.7 % High 11.5-14.5 [facility] Comment on above: Performed By: #### REZA OLIVAS, LDLP ####[facility] [place] [address] Erythrocytes (RBC) 5.42 10 6/uL Normal 4.5-6.0 [facility] Comment on above: Performed By: #### C REZA GERBER, LDLP ####[facility] [place] [address] Hematocrit (HCT) 48.6 % Normal 39-50 [facility] Comment on above: Performed By: #### C BC, BMP, LDLP ####[address] [address] Hemoglobin mass conc (Bld) 16.1 g/dL Normal 13.0-17.3 [facility] Comment on above: Performed By: #### C BC, BMP, LDLP ####[address] [address] Immature Gran# (Auto) 0.0 10 3/uL Normal [facility] Comment on above: Performed By: #### C BC, BMP, LDLP ####[address] [address] Immature granulocytes #/vol (Bld) 0.5 % Normal 0.0-1.2 [facility] Comment on above: Performed By: #### C BC, BMP, LDLP ####[address] [address] Lymphocytes 3.0 10 3/uL Normal 1-3.5 [facility] Comment on above: Performed By: #### C BC, BMP, LDLP ####[address] [address] Lymphocytes/100 leukocytes 35 % Normal 24-44 [facility] Comment on above: Performed By: #### C BC, BMP, LDLP ####[address] [address] MCH 29.7 pg Normal 27-34 [facility] Comment on above: Performed By: #### C BC, BMP, LDLP ####[facility] [place] [address] MCH 33.1 g/dL Normal 33-37 [facility] Comment on above: Performed By: #### C BC, BMP, LDLP ####[facility] [place] [address] MCV 89.7 fL Normal 80-100 [facility] Comment on above: Performed By: #### C BC, BMP, LDLP ####[facility] [place] [address] Monocytes 0.6 10 3/uL Normal 0.04-0.9 [facility] Comment on above: Performed By: #### C BC, BMP, LDLP ####[address] [address] Monocytes/100 leukocytes 6 % Normal 1-8 [facility] Comment on above: Performed By: #### C BC, BMP, LDLP ####[address] [address] Neutrophils 4.9 10 3/uL Normal 1.8-7.0 [facility] Comment on above: Performed By: #### C BC, BMP, LDLP ####[address] [address] Neutrophils/100 leukocytes 57 % Normal 42-76 [facility] Comment on above: Performed By: #### C BC, BMP, LDLP ####[address] [address] Nucleated erythrocytes 0.0 % Normal 0.0-0.2 [facility] Comment on above: Performed By: #### C BC, BMP, LDLP ####[address] [address] Platelet mean volume (PMV) 9.0 fL Normal 7.4-10.4 [facility] Comment on above: Performed By: #### C BC, BMP, LDLP ####[facility] [place] [address] Platelets 256 10 3/uL Normal 150-400 [facility] Comment on above: Performed By: #### C REZA GERBER, HENRYP ####[facility] [place], [place] [phone] WBC (Leukocytes) 8.6 10 3/uL Normal 4.0-11.0 [facility] Comment on above: Performed By: #### C ZABRINA, REZA, LDLP ####[facility] [place] [address] Consultation Reporton 2017 Consultation Report [facility] Patient: VELIA BAGLEY [address] [facility] MR#: [id number] [place], [place] [address] : 1960 Ord[address] Clarke: Dept: PDOC Loc: 8W 842-1 Consultation Service Dt: 05/09/17 Report#: [id number] Adm Dt: 05/09/17 Dis Dt: Initial Physician Consultation - Consulting Specialty Consulting Specialty: Neurology - Consultation Date of Consultation: 05/09/17 Requesting Physician: Chris Belcher Reason for Consult: Left lower extremity weakness - PCP/Chief Complaint Chief Complaint: Left lower extremity weakness - History of Present Illness HPI: The patient is a 57-year-old white male with a history of multiple medical problems who sees me as an outpatient. The patient states that he was doing well until the day of admission at 4:30 PM. At that time he noted the onset of left lower extremity weakness. The patient was taken to and evaluated in the emergency room for an acute stroke. He had a CT scan of the brain that was negative for any acute process. The patient's NIH stroke scale score was 2. The ER staff called me and we discussed the case. The patient was to be transferred to [facility] for further workup and care. Currently the patient states his left lower extremity is still weak both proximally and distally. He denies any headache, neck pain, double vision, vision loss or upper extremity weakness or numbness. He has some urinary hesitancy. The patient states his left lower extremity remains weak but that his right lower extremity is normal with no numbness. He denies any numbness of his left lower extremity. The patient does admit to being under significant stress as he was fired from his job at [employer] yesterday. The patient states that he is currently being evaluated by rehabilitation and recently had MRIs of the cervical, thoracic and lumbar spines but I do not have a copy of those results. The patient is going to be evaluated this Thursday for admission to acute rehabilitation. The rehabilitation physician has given him a diagnosis of critical illness polyneuropathy as per the patient. Currently the patient states that he does have some back pain but is not any worse than normal. - Past Medical History Neurological: Concussion, Migraine Headache, TIA/Transient Ischemic Attack(s) Other ENT/Eye Hx: periodic blurry vision Cardiac: DVT, Edema, HTN, Rheumatic Fever Other Cardiac Hx: On Eliquis Respiratory: Asthma, Bronchitis, Pneumonia Musculoskeletal: Osteoarthritis Other Musculoskelatal Hx: Lamenectomy L4 L5 03/2016. knee surgery x16 Hematologic: Anemia - Social History Smoking Status: Never smoker Does Patient Dip or Chew Tobacco: Yes Alcohol Use: No Use of Substances/Recreational Drugs: No - Family Health History Father Family Member Hx: Heart Disease, Psychiatric Mother Family Member Hx: Stroke, Heart Disease - Allergies Allergies/Adverse Reactions: Allergies baclofen Allergy (Verified 05/09/17 05:29) Unknown ciprofloxacin [From Cipro] Allergy (Verified 05/09/17 05:29) Swelling diazepam [From Valium] Allergy (Verified 05/09/17 05:29) Unknown indomethacin [From Indocin] Allergy (Verified 05/09/17 05:29) Rash Penicillins Allergy (Verified 05/09/17 05:29) Rash Sulfa (Sulfonamide Antibiotics) Allergy (Verified 05/09/17 05:29) Shortness of Breath - Medications Home Medications: Albuterol [Proair HFA] 2 puff IN Q6 PRN 05/09/17 [History Last Taken Unknown] Almotriptan Malate 12.5 mg PO Q2 PRN 05/09/17 [History Last Taken Unknown] Amitriptyline HCl [Elavil] 10 mg PO QHS 05/09/17 [History Last Taken Unknown] Apixaban [Eliquis] 5 mg PO BID 05/09/17 [History Last Taken Unknown] Budesonide/Formoterol Fumarate [Symbicort 160-4.5 Mcg Inhaler] 2 puff IN Q12 05/09/17 [History Last Taken Unknown] Celecoxib [Celebrex] 400 mg PO BID 05/09/17 [History Last Taken Unknown] Fluticasone Propionate 0.05% [Flonase] 1 spray EACH NSTRL DAILY 05/09/17 [History Last Taken Unknown] HYDROcodone 5 mg/ACETAM 325 mg [[place] 5/325 mg] 1 tab PO TID PRN 05/09/17 [History Last Taken Unknown] Losartan/Hydrochlorothia zide [Losartan-Hctz 100-25 mg Tab] 1 each PO DAILY 05/09/17 [History Last Taken Unknown] Montelukast Sodium [Singulair] 10 mg PO SUPPER 05/09/17 [History Last Taken Unknown] Potassium Chloride [Klor-Con] 20 meq PO TID 05/09/17 [History Last Taken Unknown] Pregabalin [Lyrica] 200 mg PO Q12 05/09/17 [History Last Taken Unknown] Tiotropium [place] [Spiriva] 18 mcg IN DAILY 05/09/17 [History Last Taken Unknown] Topiramate [Topamax] 100 mg PO Q12 05/09/17 [History Last Taken Unknown] diazePAM [Valium] 10 mg PO TID PRN 05/09/17 [History Last Taken Unknown] tiZANidine [Zanaflex] 8 mg PO QHS 05/09/17 [History Last Taken Unknown] Current Medications: Current Medications Acetaminophen (Tylenol) 650 mg PO Q4 PRN PRN Reason: Pain (mild)/Temp above 38.3 C Albuterol Sulfate (Proventil Mdi Hfa (Sp)) 2 puff IN Q6(RESP) PRN PRN Reason: Shortness of Breath Apixaban (Eliquis) 5 mg PO BID [facility] Last Admin: 05/09/17 12:28 Dose: 5 mg Dextrose (Dextrose Syringe) 50 ml IV Q15M PRN PRN Reason: Hypoglycemia Fluticasone Propionate (Flonase) 1 spray EACH NSTRL DAILY [facility] Last Admin: 05/09/17 11:05 Dose: 1 spray Glucagon (Glucagon) 1 mg IM Q15M PRN PRN Reason: Hypoglycemia Potassium Chloride 40 meq/ (Sodium Chloride) 270 mls @ 67.5 mls/hr IVPB LAB PRN PRN Reason: HYPOKALEMIA Montelukast Sodium (Singulair) 10 mg PO SUPPER [facility] Potassium Bicarbonate (K-Lyte) 50 meq PO LAB PRN; Protocol PRN Reason: Based on Lab Parameters Last Admin: 05/09/17 11:09 Dose: 50 meq Potassium Chloride (K-Madison) 20 meq PO TID [facility] Last Admin: 05/09/17 14:03 Dose: 20 meq Pregabalin (Lyrica) 200 mg PO Q12 [facility] Last Admin: 05/09/17 11:05 Dose: 200 mg Fluticasone/Salmeterol (Advair 250/50 Mcg Inhaler) 1 puff IN BID(RESP) [facility] Last Admin: 05/09/17 08:53 Dose: 1 puff Tiotropium [place] (Spiriva) 1 puff IN DAILY(RESP) [facility] Last Admin: 05/09/17 08:55 Dose: 1 puff Topiramate (Topamax) 100 mg PO Q12 [facility] Last Admin: 05/09/17 11:04 Dose: 100 mg - Diagnostic Studies Lab Data: Labs (last 24 hrs) 05/09/17 09:32 WBC 8.6 RBC 5.42 Hgb 16.1 Hct 48.6 MCV 89.7 MCH 29.7 MCHC 33.1 RDW 14.7 H Plt Count 256 MPV 9.0 Immature Gran % (Auto) 0.5 Neut % (Auto) 57 Lymph % (Auto) 35 [place] % (Auto) 6 Eos % (Auto) 1 Baso % (Auto) 1 Nucleat RBC Rel Count 0.0 Immature Gran # (Auto) 0.0 Neut # (Auto) 4.9 Lymph # (Auto) 3.0 [place] # (Auto) 0.6 Eos # (Auto) 0.1 Baso # (Auto) 0.1 Sodium 143 Potassium 2.7 L* Chloride 105 Carbon Dioxide 26 Anion Gap 14.7 BUN 24 H Creatinine 1.1 Estim Creat Clear Calc 77 L Est GFR ( Amer) >60 Est GFR (Non-Af Amer) >60 Fasting Glucose 132 H Calcium 8.7 Triglycerides 195 H Cholesterol 182 LDL Cholesterol 67 HDL Cholesterol 76 Cholesterol/HDL Ratio 2.39 Radiology: The patient's MRI and MRA of the brain were normal. The patient's MRA of the neck was normal. - Subjective Narrative ROS: Review of Systems completed. - Review of Systems All systems: 10 point review of systems negative except for what is stated in HPI - I O/Vital Signs I O/VS: Intake/Output/Wt 05/06/17 05/07/17 05/08/17 05/09/17 23:59 23:59 23:59 23:59 Weight 100 kg Other: Height 1.78 m Vital Signs (last 24 hrs) Temp Pulse Resp BP Pulse Ox 05/09/17 13:54 92 H 16 98 05/09/17 10:00 73 05/09/17 09:30 36.9 C 98 H 16 124/83 97 05/09/17 08:56 92 H 18 05/09/17 08:55 92 H 18 05/09/17 08:54 92 H 18 05/09/17 08:53 92 H 18 05/09/17 07:30 36.9 C 71 18 104/68 96 05/09/17 05:20 37.1 C 85 20 97 Oxygen: Oxygen O2 Sat by Pulse Oximetry 98 Oxygen Delivery Method Room Air Fraction of Inspired Oxygen ( 21 FIO2) - Objective Narrative Patient Exam: The patient is a well developed, [mildly obese] [white male] in no acute distress. The patient's funduscopic examination shows no papilledema bilaterally. The patient's extremity examination shows that the pulses are 2+ in the upper and lower extremities bilaterally and there is no edema in the lower extremities bilaterally. The patient's mental status testing is alert and oriented ?3 with no evidence of aphasia or dysarthria. The patient's memory testing, fund of knowledge and concentration are all within normal limits. The patient's cranial nerves 2, 3, 4, 5, 6, 7, 8, 9, 10, 11 and 12 are all within normal limits. The patient's motor testing shows normal tone, bulk, and power in the upper and lower extremities bilaterally with exception that the patient's proximal left lower extremity strength is 0/5 and dorsiflexion is zero out of 5. The patient's left quadriceps strength is 5 minus over 5 and plantar flexion on the left is 4/5. The patient appears to poor effort with strength testing. The patient's sensory testing is intact to light touch in the upper and lower extremities bilaterally. The patient has no sensory level to light touch. The patient's cerebellar testing is intact in the upper and lower extremities bilaterally. The patient's station and gait were not tested as the patient is a high fall risk. The patient's reflexes are 1+ in the upper and lower extremities and symmetrical. - Assessment and Plan (1) Left leg weakness Status: Acute Current Visit: Yes Plan: 05/09/17 15:22 Impression: The patient is a 57-year-old white male with a history of multiple medical problems who presents with acute onset of left lower extremity weakness. The patient's neurological examination is abnormal in noted above. The differential diagnosis for his left lower extremity weakness includes lumbar radiculopathy, lumbosacral plexopathy, hip fracture, conversion disorder and transverse myelitis which I doubt. There is no evidence to suggest a cerebral infarction on his MRI of the brain. Plan: The patient needs an MRI of the lumbar spine. The patient needs a left hip x-ray and a lumbar spine x-ray in flexion and extension views. The patient should continue all of his medicines and stroke risk factor modification. The patient does have an echocardiogram and carotid ultrasound pending. I would like to get a copy of the recent MRIs of the cervical, thoracic and lumbar spines that were done. The patient needs a consult with rehabilitation. The patient is also complaining of some urinary difficulties and I would like and have urology consult. I will send a note to Dr. Chris Belcher. Thank you very much for sending me this very interesting consultation. I will continue to follow the patient while he is in the hospital. The patient should follow up with me in the office as scheduled. I believe the patient would benefit from a stay in rehabilitation. 05/09/17 15:22 05/09/17 15:25 Normal [facility] Echocardiogramon 05-09-2017 Echocardiogram [facility] , [address] [place] [address], [place] [id number] and TRANSTHORACIC ECHOCARDIOGRAM REPORT Patient Name: VELIA Isaac Physician: SANJANA Medina DO Study Date: 05/09/2017 Referring Chris Belcher Physician: MRN/PID: [id number] PCP: Patient Department [facility] Location: Accession/Order#: [id number] Patient Location: 8W Date of : 1960 57 Nurse: years Gender: M Manager Warehouse: Fredy Zapata RDCS Admit Date: 05/08/2017 Additional Staff: Admission Status: Inpatient - CC Report to: CVC Routine Height: 178.00 cm CC Report to: Weight: 100.00 kg CC Report to: BSA: 2.18 m2 Study Type: Echo Blood Pressure: 142 /78 mmHg Diagnosis/ICD: R53.1 - Weakness Indication: R/O CVA Procedure/CPT: Echo Complete w/Full Doppler (54370) Patient History: Pertinent History: Weakness. Study Detail: The following Echo studies were performed: 2D, M-Mode, Doppler and color flow. Technically challenging study due to body habitus and poor acoustic windows. PHYSICIAN INTERPRETATION: Left Ventricle: The left ventricular systolic function is normal, with an estimated ejection fraction of 60-65%. The left ventricular chamber size is normal. The left ventricular cavity size is normal. There is there is evidence of borderline of left ventricular hypertrophy concentric left ventricular hypertrophy. Spectral Doppler shows an impaired relaxation pattern of left ventriuclar filling. Left Atrium: The left atrium is normal in size. Right Ventricle: The right ventricle is normal in size. There is normal right ventricular global systolic function. Right Atrium: The right atrium is normal in size. Aortic Valve: The aortic valve is trileaflet. There is trivial aortic valve regurgitation. The peak instantaneous gradient of the aortic valve is 7.8 mmHg. The mean gradient of the aortic valve is 3.2 mmHg. Mitral Valve: The mitral valve is normal in structure. There is no evidence of mitral valve regurgitation. Tricuspid Valve: The tricuspid valve is structurally normal. No evidence of tricuspid regurgitation. The right ventricular systolic pressure is unable to be estimated. Pulmonic Valve: The pulmonic valve is structurally normal. There is no indication of pulmonic valve regurgitation. Pericardium: There is no pericardial effusion noted. Aorta: The aortic room is normal. Pulmonary Artery: The main pulmonary artery is normal in size, and position, with normal bifurcation into the left and right pulmonary arteries. CONCLUSIONS: 1. The left ventricular systolic function is normal with a 60-65% estimated ejection fraction. 2. Spectral Doppler shows an impaired relaxation pattern of left ventriuclar filling. 3. There is a no pericardial effusion. QUANTITATIVE DATA SUMMARY: 2D MEASUREMENTS: Normal Ranges: IVSd: 1.43 cm (0.6-1.1cm) LVPWd: 1.13 cm (0.6-1.1cm) LVIDd: 3.90 cm (3.9-5.9cm) LVIDs: 1.81 cm LV Mass Index: 80.5 g/m2 LV % FS 53.7 % LA VOLUME: Normal Ranges: LA Vol A4C: 75.4 ml (22+/-6mL/m2) LA Vol A2C: 34.1 ml LA Vol BP: 51.3 ml LA Vol Index A4C: 34.6 ml/m2 LA Vol Index A2C: 15.7 ml/m2 LA Vol Index BP: 23.6 ml/m2 LA Vol A4C: 70.9 ml LA Vol A2C: 32.3 ml M-MODE MEASUREMENTS: Normal Ranges: Ao Root: 3.77 cm (2.0-3.7cm) LAs: 4.21 cm (2.7-4.0cm) AORTA MEASUREMENTS: Normal Ranges: Asc Ao, d: 2.84 cm (2.1-3.4cm) LV SYSTOLIC FUNCTION BY 2D PLANIMETRY (MOD): Normal Ranges: EF-A4C View: 35.8 % (>55%) LV DIASTOLIC FUNCTION: Normal Ranges: MV Peak E: 0.56 m/s (0.7-1.2 m/s) MV Peak A: 0.52 m/s (0.42-0.7 m/s) E/A Ratio: 1.07 (1.0-2.2) PulmV Sys Evens: 59.81 cm/s PulmV Multani Evens: 33.92 cm/s PulmV S/D Evens: 1.76 PulmV A Revs Evens: 32.13 cm/s PulmV A Revs Dur: 114.19 msec MITRAL VALVE: Normal Ranges: MV DT: 218 msec (150-240msec) AORTIC VALVE: Normal Ranges: AoV Vmax: 1.40 m/s (<1.7m/s) AoV Peak P.8 mmHg (<20mmHg) AoV Mean P.2 mmHg (1.7-11.5mmHg) LVOT Max Evens: 1.04 m/s (<1.1m/s) AoV VTI: 25.85 cm (18-25cm) LVOT VTI: 18.50 cm LVOT Diameter: 2.14 cm (1.8-2.4cm) AoV Area, VTI: 2.57 cm2 (2.5-5.5cm2) AoV Area,Vmax: 2.68 cm2 (2.5-4.5cm2) AoV Dimensionless Index: 0.72 AORTIC INSUFFICIENCY: AI Vmax: 4.02 m/s AI Half-time: 282 msec AI Decel Time: 973 msec AI Decel Rate: 423.83 cm/s2 Pulmonary Veins: PulmV A Revs Dur: 114.19 msec PulmV A Revs Evens: 32.13 cm/s PulmV Multani Evens: 33.92 cm/s PulmV S/D Evens: 1.76 PulmV Sys Evens: 59.81 cm/s AORTA: Asc Ao Diam 2.84 cm SANJANA Medina DO Electronically signed on 05/10/2017 at 1:30:46 PM Wall Scoring Final Normal [facility] Head W/O Contraston 05-09-19 Head W/O Contrast [facility] Patient: V[address]IA [address] MR#: [id number] [place], [place] [address] : 1960 [address] Chris Belcher MD Dept: Diagnostic Imaging Loc: 8 842-1 DI REPORT Service Dt:05/09/17 Report#: [id number] Adm Dt: 05/09/17 Dis Dt: Comments: STUDY: MR Brain Without Contrast; MR Head W/O Contrast; MR Neck W/O Contrast; 05/09/2017 10:45 am INDICATION: tia. COMPARISON: None. ACCESSION NUMBER(S): [id number]; [id number]; [id number] ORDERING CLINICIAN: Chris Belcher TECHNIQUE: Axial T2, FLAIR, DWI, gradient echo and sagittal and coronal T1 weighted images of brain were acquired. Additionally, 3D [id number] MRA of the cervical and intracranial vasculature was performed. FINDINGS: MRI scan of the brain The signal intensity within the brain is normal. There is no diffusion evidence of acute or subacute ischemic change. The there is no gradient echo image evidence of intracranial hemorrhage. There is no evidence of focal mass effect or edema. The ventricular system is within normal limits. MRA of the cervical and intracranial vasculature The cervical vasculature is widely patent. The intracranial portion of the examination demonstrates no evidence of aneurysm, focal stenosis, or major branch occlusion. IMPRESSION: Unremarkable examination. Dictated by: Sally Carr Electronically Signed by: Sally Carr 05/09/2017 12:00 PM Normal [facility] History AND Physicalon 05-09 History AND Physical [facility] Patient: VELIA BAGLEY [address] MR#: [id number] [place], [place] [address] : 1960 OrdSindi Clarke: Dept: PDOC Loc: 8W 842-1 History Physical Service Dt: 05/09/17 Report#: [id number] Adm Dt: 05/09/17 Dis Dt: History and Physical - Admit Order Information Status/Length of Stay: Observation <2 Midnights, Place Pt in Routine Location: Telemetry Floor - Date of Service Date of Service: 05/09/17 - PCP/Chief Complaint Chief Complaint: Left Leg Weakess - Patient Information HPI/ROS/Exam: Mr. Velia Bagley is a 57 year old Male with PMHx of LLE DVT on Eliquis, H/o Asthma, H/o Migraine disorder and Torticollis with Botox Injections, H/o Bursitus of the hip, H/o Critical Illness Myopathy, H/o Chronic Lumbar Radiculopathy, H/o Left Carpal Tunnel Syndrome, H/o OA of B/L Knees, H/o ?HFpEF, H/o Idiopathic Polyneuropathy, and Hypertension who was transferred from in [place], [place] with chief complaint of Left Lower Extremity Weakness that started at 4:30 pm yesterday (05/08/2017). At that time his he also experienced a Left leg parathesia and his NIH stroke scale was noted to be a 2. ED physician stated that he had a slight drift of his left leg and that he currently needs a cane to ambulate which he was not dependent upon prior to yesterday. At [facility] he underwent a CTH which was negative for any acute intracranial pathology. His K+ level was noted to be low at 2.8. - Family Health History Father Family Member Hx: Heart Disease, Psychiatric Mother Family Member Hx: Stroke, Heart Disease - Allergies Allergies/Adverse Reactions: Allergies baclofen Allergy (Verified 05/09/17 05:29) Unknown ciprofloxacin [From Cipro] Allergy (Verified 05/09/17 05:29) Swelling diazepam [From Valium] Allergy (Verified 05/09/17 05:29) Unknown indomethacin [From Indocin] Allergy (Verified 05/09/17 05:29) Rash Penicillins Allergy (Verified 05/09/17 05:29) Rash Sulfa (Sulfonamide Antibiotics) Allergy (Verified 05/09/17 05:29) Shortness of Breath - Medications Home Medications: Albuterol [Proair HFA] 2 puff IN Q6 PRN 05/09/17 [History Last Taken Unknown] Almotriptan Malate 12.5 mg PO Q2 PRN 05/09/17 [History Last Taken Unknown] Amitriptyline HCl [Elavil] 10 mg PO QHS 05/09/17 [History Last Taken Unknown] Apixaban [Eliquis] 5 mg PO BID 05/09/17 [History Last Taken Unknown] Budesonide/Formoterol Fumarate [Symbicort 160-4.5 Mcg Inhaler] 2 puff IN Q12 05/09/17 [History Last Taken Unknown] Celecoxib [Celebrex] 400 mg PO BID 05/09/17 [History Last Taken Unknown] Fluticasone Propionate 0.05% [Flonase] 1 spray EACH NSTRL DAILY 05/09/17 [History Last Taken Unknown] HYDROcodone 5 mg/ACETAM 325 mg [[place] 5/325 mg] 1 tab PO TID PRN 05/09/17 [History Last Taken Unknown] Losartan/Hydrochlorothia zide [Losartan-Hctz 100-25 mg Tab] 1 each PO DAILY 05/09/17 [History Last Taken Unknown] Montelukast Sodium [Singulair] 10 mg PO SUPPER 05/09/17 [History Last Taken Unknown] Potassium Chloride [Klor-Con] 20 meq PO TID 05/09/17 [History Last Taken Unknown] Pregabalin [Lyrica] 200 mg PO Q12 05/09/17 [History Last Taken Unknown] Tiotropium [place] [Spiriva] 18 mcg IN DAILY 05/09/17 [History Last Taken Unknown] Topiramate [Topamax] 100 mg PO Q12 05/09/17 [History Last Taken Unknown] diazePAM [Valium] 10 mg PO TID PRN 05/09/17 [History Last Taken Unknown] tiZANidine [Zanaflex] 8 mg PO QHS 05/09/17 [History Last Taken Unknown] - Subjective Narrative ROS: Review of Systems completed. - Review of Systems Musculoskeletal: Reports: back pain Neurological: Reports: weakness, paresthesias - Physical Exam HEENT: Positive: head normal inspection Neck: Positive: Supple Adenopathy: Positive: No Regional Adenopathy Respiratory: Positive: normal lung sounds bilaterally Cardiovascular: Positive: regular rate, normal rhythm, normal heart sounds GI/Abdominal: Positive: soft, nontender, nondistended : Positive: deferred Extremities: Positive: normal inspection Neurological: Positive: alert, oriented X3, CN II-XII intact, left hemiplegia Integumentary: Positive: intact Psychiatric: Positive: normal mood - Assessment and Plan (1) Left leg weakness Status: Acute Current Visit: Yes (2) Idiopathic neuropathy Status: Acute Current Visit: Yes (3) Critical illness myopathy Status: Acute Current Visit: Yes (4) Migraine Status: Acute Current Visit: Yes (5) Asthma Status: Acute Current Visit: Yes (6) Bilateral carpal tunnel syndrome Status: Acute Current Visit: Yes (7) Bursitis, hip Status: Acute Current Visit: Yes (8) Osteoarthritis Status: Acute Current Visit: Yes (9) H/O deep venous thrombosis Status: Acute Current Visit: Yes (10) Chronic lumbar radiculopathy Status: Acute Current Visit: Yes (11) DVT prophylaxis Status: Acute Current Visit: Yes - Comments Impression Comments: 05/09/17 06:48 -- Admitted to [facility] unit -- Patient obtained CT Head to r/o acute bleed vs. Ischemic event -- Neurology Consult requested -- Obtain TTE -- Carotid Arterial Doppler -- Lipid Profile -- Permissive HTN Managment -- Rehabilitation Consult -- Continue ASA/statin. -- Neuro checks Q shift -- Up with Assist -- Aspiration Precautions -- Will continue with Eliquis - Time Spent With Patient Time With Patient: 21 minutes Review and update is required if H P is greater than twenty-four hours. The patient was examined, the H P was reviewed. __ No Changes __ Changes noted below: Date/Time Attending Physician Normal [facility] Lipid Profileon 05-09-2017 Cholesterol 182 mg/dL Normal 0-200 [facility] Comment on above: Performed By: #### C BC, BMP, LDLP ####[address] [address] Cholesterol to HDL Ratio 2.39 {ratio} Normal 0-6.9 [facility] Comment on above: Result Comment: CHD Risk: Men WomenLowest <3.8 <2.9Low 3.9-4.7 3.0-3.6Average 4.8-5.9 3.7-4.6Moderate 6.0-6.9 4.7-5.6High >6.9 >5.6 Performed By: #### C BC, BMP, LDLP ####[address] [address] HDL Cholesterol 76 mg/dL Normal 39-96 [facility] Comment on above: Performed By: #### C BC, BMP, LDLP ####[address] [address] LDL Cholesterol 67 mg/dL Normal 0-130 [facility] Comment on above: Performed By: #### C BC, BMP, LDLP ####[address] [address] Triglycerides, Serum 195 mg/dL High 30-150 [facility] Comment on above: Performed By: #### C BC, BMP, LDLP ####[address] [address] Neck W/O Contraston 05-09-19 18 Neck W/O Contrast [facility] Patient: VELIA BAGLEY [address] MR#: [id number] [place], [place] [address] : 1960 [address] Chris Belcher MD Dept: Diagnostic Imaging Loc: 8W 842-1 DI REPORT Service Dt:05/09/17 Report#: [id number] Adm Dt: 05/09/17 Dis Dt: Comments: STUDY: MR Brain Without Contrast; MR Head W/O Contrast; MR Neck W/O Contrast; 05/09/2017 10:45 am INDICATION: tia. COMPARISON: None. ACCESSION NUMBER(S): [id number]; [id number]; [id number] ORDERING CLINICIAN: Chris Belcher TECHNIQUE: Axial T2, FLAIR, DWI, gradient echo and sagittal and coronal T1 weighted images of brain were acquired. Additionally, 3D adin-zg-ejdyhh MRA of the cervical and intracranial vasculature was performed. FINDINGS: MRI scan of the brain The signal intensity within the brain is normal. There is no diffusion evidence of acute or subacute ischemic change. The there is no gradient echo image evidence of intracranial hemorrhage. There is no evidence of focal mass effect or edema. The ventricular system is within normal limits. MRA of the cervical and intracranial vasculature The cervical vasculature is widely patent. The intracranial portion of the examination demonstrates no evidence of aneurysm, focal stenosis, or major branch occlusion. IMPRESSION: Unremarkable examination. Dictated by: Sally Carr Electronically Signed by: Sally Carr 05/09/2017 12:00 PM Normal [facility] Potassiumon 05-09-2017 Potassium molar conc 4.5 mmol/L Normal 3.5-5.1 [facility] Comment on above: Order Comment: Add o n to today's blood, if available? N Performed By: #### K ####[facility] [place] [address] Potassium molar conc 3.3 mmol/L Low 3.5-5.1 [facility] Comment on above: Order Comment: Add o n to today's blood, if available? N Performed By: #### K ####[address] [address] Vital Signs Date Time Vital Sign Value Performing Clinician Facility 09-13-2024 12:26-0400 Body mass index (BMI) [Ratio] 26.58 kg/m2 Courtney Brown MD Work Phone: [facility] 09-13-2024 12:26-0400 Body weight 81.65 kg Courtney Brown MD Work Phone: [facility] 09-13-2024 12:26-0400 Heart rate 78 /min Courtney Brown MD Work Phone: [facility] 09-13-2024 12:26-0400 SaO2% (BldA) [Mass fraction] 92 % Courtney Brown MD Work Phone: [facility] 09-12-2024 14:18-0400 Body height 175.3 cm Jessica Moore DELIVERY PROFESSIONAL-METALLOGRAPHIC TECHNICIAN Work Phone: [facility] 09-12-2024 14:18-0400 Body mass index (BMI) [Ratio] 26.73 kg/m2 Jessica Moore DELIVERY PROFESSIONAL-METALLOGRAPHIC TECHNICIAN Work Phone: [facility] 09-12-2024 14:18-0400 Body weight 82.1 kg Jessica Moore DELIVERY PROFESSIONAL-METALLOGRAPHIC TECHNICIAN Work Phone: [facility] 09-12-2024 14:18-0400 Diastolic blood pressure 85 mm[Hg] Jessica Moore DELIVERY PROFESSIONAL-METALLOGRAPHIC TECHNICIAN Work Phone: [facility] 09-12-2024 14:18-0400 Heart rate 88 /min Jessica Moore DELIVERY PROFESSIONAL-METALLOGRAPHIC TECHNICIAN Work Phone: [facility] 09-12-2024 14:18-0400 Respiratory rate 17 /min Jessica Moore DELIVERY PROFESSIONAL-METALLOGRAPHIC TECHNICIAN Work Phone: [facility] 09-12-2024 14:18-0400 Systolic blood pressure 143 mm[Hg] Jessica Moore DELIVERY PROFESSIONAL-METALLOGRAPHIC TECHNICIAN Work Phone: [facility] 08-10-2024 11:47-0400 Body height 175.3 cm Jodie Matthews MD Work Phone: [facility] 08-10-2024 11:47-0400 Body mass index (BMI) [Ratio] 27.02 kg/m2 Jodie Matthews MD Work Phone: [facility] 08-10-2024 11:47-0400 Body weight 83.01 kg Jodie Matthews MD Work Phone: [facility] 08-10-2024 11:47-0400 Diastolic blood pressure 69 mm[Hg] Jodie Matthews MD Work Phone: [facility] 08-10-2024 11:47-0400 Heart rate 100 /min Jodie Matthews MD Work Phone: [facility] 08-10-2024 11:47-0400 Respiratory rate 17 /min Jodie Matthews MD Work Phone: [facility] 08-10-2024 11:47-0400 Systolic blood pressure 92 mm[Hg] Jodie Matthews MD Work Phone: [facility] 07-25-2024 11:20-0400 Body mass index (BMI) [Ratio] 28.35 kg/m2 Rich Magana MD MPH Work Phone: [facility] 07-25-2024 11:20-0400 Body temperature 96.6 [degF] Rich Magana MD MPH Work Phone: [facility] 07-25-2024 11:20-0400 Body weight 87.09 kg Rich Magana MD MPH Work Phone: [facility] 07-25-2024 11:20-0400 Diastolic blood pressure 81 mm[Hg] Rich Magana MD MPH Work Phone: [facility] 07-25-2024 11:20-0400 Heart rate 101 /min Rich Magana MD MPH Work Phone: [facility] 07-25-2024 11:20-0400 Respiratory rate 18 /min Rich Magana MD MPH Work Phone: [facility] 07-25-2024 11:20-0400 SaO2% (BldA) [Mass fraction] 96 % Rich Magana MD MPH Work Phone: [facility] Comment on above: RA 07-25-2024 11:20-0400 Systolic blood pressure 118 mm[Hg] Rich Magana MD MPH Work Phone: [facility] 07-07-2024 10:32-0500 Body height 176.53 cm Rachel Rayo MD Work Phone: [facility] 07-07-2024 10:32-0500 Body mass index (BMI) [Ratio] 28.6 kg/m2 Rachel Rayo MD Work Phone: [facility] 07-07-2024 10:32-0500 Body weight 89.35 kg Rachel Rayo MD Work Phone: [facility] 07-07-2024 10:32-0500 Diastolic blood pressure 88 mm[Hg] Rachel Rayo MD Work Phone: [facility] 07-07-2024 10:32-0500 Heart rate 78 /min Rachel Rayo MD Work Phone: [facility] 07-07-2024 10:32-0500 Systolic blood pressure 145 mm[Hg] Rachel Rayo MD Work Phone: [facility] 07-06-2024 14:27-0500 Body temperature 97.81 [degF] Jessica Moore DELIVERY PROFESSIONAL-METALLOGRAPHIC TECHNICIAN Work Phone: [facility] 07-06-2024 14:27-0500 Diastolic blood pressure 68 mm[Hg] Jessica Moore DELIVERY PROFESSIONAL-METALLOGRAPHIC TECHNICIAN Work Phone: [facility] 07-06-2024 14:27-0500 Heart rate 80 /min Jessica Moore DELIVERY PROFESSIONAL-METALLOGRAPHIC TECHNICIAN Work Phone: [facility] 07-06-2024 14:27-0500 Systolic blood pressure 138 mm[Hg] Jessica Moore DELIVERY PROFESSIONAL-METALLOGRAPHIC TECHNICIAN Work Phone: [facility] 06-14-2024 17:03-0500 Diastolic blood pressure 95 mm[Hg] Courtney Brown MD Work Phone: [facility] 06-14-2024 17:03-0500 Heart rate 95 /min Courtney Brown MD Work Phone: [facility] 06-14-2024 17:03-0500 SaO2% (BldA) [Mass fraction] 86 % Courtney Brown MD Work Phone: [facility] 06-14-2024 17:03-0500 Systolic blood pressure 150 mm[Hg] Courtney Brown MD Work Phone: [facility] 06-09-2024 11:30-0500 Heart rate 73 /min Issa Gonzales [facility] 06-09-2024 11:30-0500 SaO2% (BldA) [Mass fraction] 96 % Issa Gonzales [facility] 06-09-2024 11:30-0500 Diastolic blood pressure 82 mm[Hg] Issa Gonzales [facility] 06-09-2024 11:30-0500 Mean blood pressure 101 mm[Hg] Issa Gonzales [facility] 06-09-2024 11:30-0500 Systolic blood pressure 140 mm[Hg] Issa Gonzales [facility] 06-09-2024 11:28-0500 Respiratory rate 16 /min Issa Gonzales [facility] 06-09-2024 11:24-0500 Diastolic blood pressure 85 mm[Hg] Issa Gonzales [facility] 06-09-2024 11:24-0500 Heart rate 75 /min Issa Gonzales [facility] 06-09-2024 11:24-0500 Respiratory rate 16 /min Issa Gonzales [facility] 06-09-2024 11:24-0500 SaO2% (BldA) [Mass fraction] 95 % Issa Gonzales [facility] 06-09-2024 11:24-0500 Systolic blood pressure 139 mm[Hg] Issa Gonzales [facility] 06-09-2024 10:05-0500 Heart rate 79 /min Issa Gonzales [facility] 06-09-2024 10:05-0500 SaO2% (BldA) [Mass fraction] 95 % Issa Gonzales [facility] 06-09-2024 10:05-0500 Body temperature 97.7 [degF] Issa Gonzales [facility] 06-09-2024 10:05-0500 Diastolic blood pressure 97 mm[Hg] Issa Gonzales [facility] 06-09-2024 10:05-0500 Mean blood pressure 117 mm[Hg] Issa Gonzales [facility] 06-09-2024 10:05-0500 Systolic blood pressure 155 mm[Hg] Issa Gonzales [facility] 06-09-2024 10:01-0500 Respiratory rate 16 /min Issa Gonzales [facility] 06-02-2024 13:07-0500 Body temperature 97.59 [degF] Jessica Moore DELIVERY PROFESSIONAL-METALLOGRAPHIC TECHNICIAN Work Phone: [facility] 06-02-2024 13:07-0500 Diastolic blood pressure 82 mm[Hg] Jessica Moore DELIVERY PROFESSIONAL-METALLOGRAPHIC TECHNICIAN Work Phone: [facility] 06-02-2024 13:07-0500 Heart rate 76 /min Jessica Moore DELIVERY PROFESSIONAL-METALLOGRAPHIC TECHNICIAN Work Phone: [facility] 06-02-2024 13:07-0500 Respiratory rate 18 /min Jessica Moore DELIVERY PROFESSIONAL-METALLOGRAPHIC TECHNICIAN Work Phone: [facility] 06-02-2024 13:07-0500 Systolic blood pressure 138 mm[Hg] Jessica Moore DELIVERY PROFESSIONAL-METALLOGRAPHIC TECHNICIAN Work Phone: [facility] 05-31-2024 14:57-0500 Body weight 87.99 kg Rachel Rayo MD Work Phone: [facility] 05-31-2024 14:57-0500 Diastolic blood pressure 83 mm[Hg] Rachel Rayo MD Work Phone: [facility] 05-31-2024 14:57-0500 Heart rate 84 /min Rachel Rayo MD Work Phone: [facility] 05-31-2024 14:57-0500 Respiratory rate 20 /min Rachel Rayo MD Work Phone: [facility] 05-31-2024 14:57-0500 SaO2% (BldA) [Mass fraction] 96 % Rachel Rayo MD Work Phone: [facility] 05-31-2024 14:57-0500 Systolic blood pressure 136 mm[Hg] Rachel Rayo MD Work Phone: [facility] 05-11-2024 11:05-0500 Body mass index (BMI) [Ratio] 28.65 kg/m2 Jodie Matthews MD Work Phone: [facility] 05-11-2024 11:05-0500 Body weight 88 kg Jodie Matthews MD Work Phone: [facility] 05-11-2024 11:05-0500 Diastolic blood pressure 80 mm[Hg] Jodie Matthews MD Work Phone: [facility] 05-11-2024 11:05-0500 Heart rate 72 /min Jodie Matthews MD Work Phone: [facility] 05-11-2024 11:05-0500 Respiratory rate 24 /min Jodie Matthews MD Work Phone: [facility] 05-11-2024 11:05-0500 Systolic blood pressure 120 mm[Hg] Jodie Matthews MD Work Phone: [facility] 05-09-2024 14:14-0500 Diastolic blood pressure 90 mm[Hg] Issa Gonzales [facility] 05-09-2024 14:14-0500 Heart rate 77 /min Issa Gonzales [facility] 05-09-2024 14:14-0500 Mean blood pressure 107 mm[Hg] Issa Gonzales [facility] 05-09-2024 14:14-0500 Respiratory rate 16 /min Issa Gonzales [facility] 05-09-2024 14:14-0500 Systolic blood pressure 140 mm[Hg] Issa Gonzales [facility] 04-13-2024 10:23-0500 Body mass index (BMI) [Ratio] 28.74 kg/m2 Rich Magana MD MPH Work Phone: [facility] 04-13-2024 10:23-0500 Body temperature 98.1 [degF] Rich Magana MD MPH Work Phone: [facility] 04-13-2024 10:23-0500 Body weight 88.27 kg Rich Magana MD MPH Work Phone: [facility] 04-13-2024 10:23-0500 Diastolic blood pressure 90 mm[Hg] Rich Magana MD MPH Work Phone: [facility] 04-13-2024 10:23-0500 Heart rate 88 /min Rich Magana MD MPH Work Phone: [facility] 04-13-2024 10:23-0500 Respiratory rate 18 /min Rich Magana MD MPH Work Phone: [facility] 04-13-2024 10:23-0500 SaO2% (BldA) [Mass fraction] 97 % Rich Magana MD MPH Work Phone: [facility] Comment on above: RA 04-13-2024 10:23-0500 Systolic blood pressure 170 mm[Hg] Rich Magana MD MPH Work Phone: [facility] 04-07-2024 14:02-0500 Body temperature 97.5 [degF] Jessica Moore DELIVERY PROFESSIONAL-METALLOGRAPHIC TECHNICIAN Work Phone: [facility] 04-07-2024 14:02-0500 Diastolic blood pressure 82 mm[Hg] Jessica Moore DELIVERY PROFESSIONAL-METALLOGRAPHIC TECHNICIAN Work Phone: [facility] 04-07-2024 14:02-0500 Heart rate 78 /min Jessica Moore DELIVERY PROFESSIONAL-METALLOGRAPHIC TECHNICIAN Work Phone: [facility] 04-07-2024 14:02-0500 Respiratory rate 20 /min Jessica Moore DELIVERY PROFESSIONAL-METALLOGRAPHIC TECHNICIAN Work Phone: [facility] 04-07-2024 14:02-0500 Systolic blood pressure 138 mm[Hg] Jessica Moore DELIVERY PROFESSIONAL-METALLOGRAPHIC TECHNICIAN Work Phone: [facility] 03-08-2024 09:27-0500 Body height 175.3 cm Courtney Brown MD Work Phone: [facility] 03-08-2024 09:27-0500 Body mass index (BMI) [Ratio] 27.32 kg/m2 Courtney Brown MD Work Phone: [facility] 03-08-2024 09:27-0500 Body weight 83.92 kg Courtney Brown MD Work Phone: [facility] 03-08-2024 09:27-0500 Heart rate 75 /min Courtney Brown MD Work Phone: [facility] 02-16-2024 10:04-0400 Body mass index (BMI) [Ratio] 26.58 kg/m2 Courtney Brown MD Work Phone: [facility] 02-16-2024 10:04-0400 Body weight 81.65 kg Courtney Brown MD Work Phone: [facility] 02-16-2024 10:04-0400 Diastolic blood pressure 79 mm[Hg] Courtney Brown MD Work Phone: [facility] 02-16-2024 10:04-0400 Heart rate 82 /min Courtney Brown MD Work Phone: [facility] 02-16-2024 10:04-0400 SaO2% (BldA) [Mass fraction] 94 % Courtney Brown MD Work Phone: [facility] 02-16-2024 10:04-0400 Systolic blood pressure 123 mm[Hg] Courtney Brown MD Work Phone: [facility] 02-10-2024 07:59-0400 Body height 176.53 cm MD Rachel Rayo Work Phone: [facility] 02-10-2024 07:59-0400 Body mass index (BMI) [Ratio] 25.8 kg/m2 MD Rachel Rayo Work Phone: [facility] 02-10-2024 07:59-0400 Body weight 80.51 kg MD Rachel Rayo Work Phone: [facility] 02-10-2024 07:59-0400 Diastolic blood pressure 82 mm[Hg] MD Rachel Rayo Work Phone: [facility] 02-10-2024 07:59-0400 Heart rate 70 /min MD Rachel Rayo Work Phone: [facility] 02-10-2024 07:59-0400 Respiratory rate 16 /min MD Rachel Rayo Work Phone: [facility] 02-10-2024 07:59-0400 SaO2% (BldA) [Mass fraction] 96 % MD Rachel Rayo Work Phone: [facility] 02-10-2024 07:59-0400 Systolic blood pressure 120 mm[Hg] MD Rachel Rayo Work Phone: [facility] 01-18-2024 10:50-0400 Diastolic blood pressure 76 mm[Hg] Issa Gonzales [facility] 01-18-2024 10:50-0400 Heart rate 81 /min Parsons Christian [facility] 01-18-2024 10:50-0400 Mean blood pressure 89 mm[Hg] Parsons Christian [facility] 01-18-2024 10:50-0400 Respiratory rate 20 /min Issa Gonzales [facility] 01-18-2024 10:50-0400 Systolic blood pressure 114 mm[Hg] Parsons Christian [facility] 01-11-2024 14:29-0400 Body mass index (BMI) [Ratio] 25.1 kg/m2 Jodie Matthews MD Work Phone: [facility] 01-11-2024 14:29-0400 Body weight 77.11 kg Jodie Matthews MD Work Phone: [facility] 01-11-2024 14:29-0400 Diastolic blood pressure 76 mm[Hg] Jodie Matthews MD Work Phone: [facility] 01-11-2024 14:29-0400 Heart rate 96 /min Jodie Matthews MD Work Phone: [facility] 01-11-2024 14:29-0400 Respiratory rate 20 /min Jodie Matthews MD Work Phone: [facility] 01-11-2024 14:29-0400 Systolic blood pressure 120 mm[Hg] Jodie Matthews MD Work Phone: [facility] 12-29-2023 08:57-0400 Heart rate 88 /min Issa Gonzales [facility] 12-29-2023 08:57-0400 SaO2% (BldA) [Mass fraction] 94 % Issa Gonzales [facility] 12-29-2023 08:57-0400 Diastolic blood pressure 73 mm[Hg] Issa Gonzales [facility] 12-29-2023 08:57-0400 Mean blood pressure 87 mm[Hg] Issa Gonzales [facility] 12-29-2023 08:57-0400 Systolic blood pressure 116 mm[Hg] Issa Gonzales [facility] 12-29-2023 08:57-0400 Respiratory rate 16 /min Issa Gonzales [facility] 12-29-2023 08:52-0400 Diastolic blood pressure 83 mm[Hg] Issa Gonzales [facility] 12-29-2023 08:52-0400 Heart rate 80 /min Issa Gonzales [facility] 12-29-2023 08:52-0400 Respiratory rate 14 /min Issa Gonzales [facility] 12-29-2023 08:52-0400 SaO2% (BldA) [Mass fraction] 98 % Issa Gonzales [facility] 12-29-2023 08:52-0400 Systolic blood pressure 107 mm[Hg] Issa Gonzales [facility] 12-29-2023 07:45-0400 Heart rate 98 /min Issa Gonzales [facility] 12-29-2023 07:45-0400 SaO2% (BldA) [Mass fraction] 95 % Issa Gonzales [facility] 12-29-2023 07:45-0400 Body temperature 97.88 [degF] Issa Gonzales [facility] 12-29-2023 07:44-0400 Diastolic blood pressure 86 mm[Hg] Issa Gonzales [facility] 12-29-2023 07:44-0400 Mean blood pressure 102 mm[Hg] Issa Gonzales [facility] 12-29-2023 07:44-0400 Systolic blood pressure 134 mm[Hg] Issa Gonzales [facility] 12-29-2023 07:44-0400 Respiratory rate 14 /min Issa Gonzales [facility] 12-04-2023 10:29-0400 Diastolic blood pressure 76 mm[Hg] Barbara Duron [facility] 12-04-2023 10:29-0400 Heart rate 102 /min Barbaracherise Duron [facility] 12-04-2023 10:29-0400 Mean blood pressure 87 mm[Hg] Barbara Duron [facility] 12-04-2023 10:29-0400 Respiratory rate 14 /min Barbara Duron [facility] 12-04-2023 10:29-0400 Systolic blood pressure 110 mm[Hg] Barbara Duron [facility] 12-02-2023 10:08-0400 Body temperature 97.8 [degF] MD Rachel Rayo Work Phone: [facility] 12-02-2023 10:08-0400 Body weight 75.74 kg MD Rachel Rayo Work Phone: [facility] 12-02-2023 10:08-0400 Diastolic blood pressure 91 mm[Hg] MD Rachel Rayo Work Phone: [facility] 12-02-2023 10:08-0400 Heart rate 104 /min MD Rachel Rayo Work Phone: [facility] 12-02-2023 10:08-0400 Respiratory rate 18 /min MD Rachel Rayo Work Phone: [facility] 12-02-2023 10:08-0400 SaO2% (BldA) [Mass fraction] 96 % MD Rachel Rayo Work Phone: [facility] 12-02-2023 10:08-0400 Systolic blood pressure 142 mm[Hg] MD Rachel Rayo Work Phone: [facility] 11-10-2023 11:41-0400 Body height 175.26 cm MD Rachel Rayo Work Phone: [facility] 11-10-2023 11:41-0400 Body mass index (BMI) [Ratio] 24.2 kg/m2 MD Rachel Raoy Work Phone: [facility] 11-10-2023 11:41-0400 Body weight 74.38 kg MD Rachel Rayo Work Phone: [facility] 11-10-2023 11:41-0400 Diastolic blood pressure 93 mm[Hg] MD Rachel Rayo Work Phone: [facility] 11-10-2023 11:41-0400 Heart rate 132 /min MD Rachel Rayo Work Phone: [facility] 11-10-2023 11:41-0400 SaO2% (BldA) [Mass fraction] 91 % MD Rachel Rayo Work Phone: [facility] 11-10-2023 11:41-0400 Systolic blood pressure 135 mm[Hg] MD Rachel Rayo Work Phone: [facility] 10-26-2023 15:36-0400 Body height 175.26 cm MD Rachel Rayo Work Phone: [facility] 10-26-2023 15:36-0400 Body mass index (BMI) [Ratio] 25.2 kg/m2 MD Rachel Rayo Work Phone: [facility] 10-26-2023 15:36-0400 Body temperature 97.6 [degF] MD Rachel Rayo Work Phone: [facility] 10-26-2023 15:36-0400 Body weight 77.56 kg MD Rachel Rayo Work Phone: [facility] 10-26-2023 15:36-0400 Diastolic blood pressure 91 mm[Hg] MD Rachel Rayo Work Phone: [facility] 10-26-2023 15:36-0400 Heart rate 120 /min MD Rachel Rayo Work Phone: [facility] 10-26-2023 15:36-0400 SaO2% (BldA) [Mass fraction] 93 % MD Rachel Rayo Work Phone: [facility] 10-26-2023 15:36-0400 Systolic blood pressure 148 mm[Hg] MD Rachel Rayo Work Phone: [facility] 10-17-2023 01:30-0400 Diastolic blood pressure 92 mm[Hg] MD Rachel Rayo Work Phone: [facility] 10-17-2023 01:30-0400 Heart rate 63 /min MD Rachel Rayo Work Phone: [facility] 10-17-2023 01:30-0400 SaO2% (BldA) [Mass fraction] 98 % MD Rachel Rayo Work Phone: [facility] 10-17-2023 01:30-0400 Systolic blood pressure 180 mm[Hg] MD Rachel Rayo Work Phone: [facility] 10-17-2023 01:00-0400 Respiratory rate 16 /min MD Rachel Rayo Work Phone: [facility] 10-16-2023 20:45-0400 Body height 175.26 cm MD Rachel Rayo Work Phone: [facility] 10-16-2023 20:45-0400 Body temperature 98 [degF] MD Rachel Rayo Work Phone: [facility] 10-16-2023 20:45-0400 Body weight 84.2 kg MD Rachel Rayo Work Phone: [facility] 10-12-2023 15:31-0400 Body mass index (BMI) [Ratio] 27.76 kg/m2 Jodie Matthews MD Work Phone: [facility] 10-12-2023 15:31-0400 Body weight 85.28 kg Jodie Matthews MD Work Phone: [facility] 10-12-2023 15:31-0400 Diastolic blood pressure 80 mm[Hg] Jodie Matthews MD Work Phone: [facility] 10-12-2023 15:31-0400 Heart rate 80 /min Jodie Matthews MD Work Phone: [facility] 10-12-2023 15:31-0400 Respiratory rate 20 /min Jodie Matthews MD Work Phone: [facility] 10-12-2023 15:31-0400 Systolic blood pressure 122 mm[Hg] Jodie Matthews MD Work Phone: [facility] 10-08-2023 10:37-0400 Body height 175.3 cm Salma Gandhi DO Work Phone: [facility] 10-08-2023 10:37-0400 Body mass index (BMI) [Ratio] 27.26 kg/m2 Salma Gandhi DO Work Phone: [facility] 10-08-2023 10:37-0400 Body weight 83.73 kg Christopher Tangen DO Work Phone: [facility] 10-08-2023 10:37-0400 Diastolic blood pressure 72 mm[Hg] Christopher Tangen DO Work Phone: [facility] 10-08-2023 10:37-0400 Heart rate 67 /min Christopher Tangen DO Work Phone: [facility] 10-08-2023 10:37-0400 SaO2% (BldA) [Mass fraction] 96 % Christopher Tangen DO Work Phone: [facility] 10-08-2023 10:37-0400 Systolic blood pressure 138 mm[Hg] Christopher Tangen DO Work Phone: [facility] 09-15-2023 13:50-0400 Body height 175.26 cm MD Rachel Rayo Work Phone: [facility] 09-15-2023 13:50-0400 Body mass index (BMI) [Ratio] 25.7 kg/m2 MD Rachel Rayo Work Phone: [facility] 09-15-2023 13:50-0400 Body weight 78.92 kg MD Rachel Rayo Work Phone: [facility] 09-15-2023 13:50-0400 Diastolic blood pressure 78 mm[Hg] MD Rachel Rayo Work Phone: [facility] 09-15-2023 13:50-0400 Heart rate 107 /min MD Rachel Rayo Work Phone: [facility] 09-15-2023 13:50-0400 Systolic blood pressure 113 mm[Hg] MD Rachel Rayo Work Phone: [facility] 09-04-2023 13:16-0400 Body temperature 97.2 [degF] MD Rachel Rayo Work Phone: [facility] 09-04-2023 13:16-0400 Body weight 81.64 kg MD Rachel Rayo Work Phone: [facility] 09-04-2023 13:16-0400 Diastolic blood pressure 62 mm[Hg] MD Rachel Rayo Work Phone: [facility] 09-04-2023 13:16-0400 Heart rate 87 /min MD Rachel Rayo Work Phone: [facility] 09-04-2023 13:16-0400 Respiratory rate 16 /min MD Rachel Rayo Work Phone: [facility] 09-04-2023 13:16-0400 SaO2% (BldA) [Mass fraction] 96 % MD Rachel Rayo Work Phone: [facility] 09-04-2023 13:16-0400 Systolic blood pressure 95 mm[Hg] MD Rachel Rayo Work Phone: [facility] 07-28-2023 13:18-0400 Body height 175.26 cm MD Rachel Rayo Work Phone: [facility] 07-28-2023 13:18-0400 Body mass index (BMI) [Ratio] 27.3 kg/m2 MD Rachel Rayo Work Phone: [facility] 07-28-2023 13:18-0400 Body temperature 97.9 [degF] MD Rachel Rayo Work Phone: [facility] 07-28-2023 13:18-0400 Body weight 83.97 kg MD Rachel Rayo Work Phone: [facility] 07-28-2023 13:18-0400 Diastolic blood pressure 72 mm[Hg] MD Rachel Rayo Work Phone: [facility] 07-28-2023 13:18-0400 Heart rate 90 /min MD Rachel Rayo Work Phone: [facility] 07-28-2023 13:18-0400 SaO2% (BldA) [Mass fraction] 96 % MD Rachel Rayo Work Phone: [facility] 07-28-2023 13:18-0400 Systolic blood pressure 118 mm[Hg] MD Rachel Rayo Work Phone: [facility] 07-15-2023 11:26-0400 Body mass index (BMI) [Ratio] 26.91 kg/m2 Jodie Matthews MD Work Phone: [facility] 07-15-2023 11:26-0400 Body temperature 98.6 [degF] Jodie Matthews MD Work Phone: [facility] 07-15-2023 11:26-040 Body weight 82.64 kg Jodie Matthews MD Work Phone: [facility] 07-15-2023 11:26-0400 Diastolic blood pressure 74 mm[Hg] Jodie Matthews MD Work Phone: [facility] 07-15-2023 11:26-0400 Systolic blood pressure 122 mm[Hg] Jodie Matthews MD Work Phone: [facility] 07-08-2023 13:12-0500 Heart rate 71 /min Barbara [employer] [facility] 07-08-2023 13:12-0500 SaO2% (BldA) [Mass fraction] 98 % Barbara Duron [facility] 07-08-2023 13:12-0500 Diastolic blood pressure 75 mm[Hg] Barbara [employer] [facility] 07-08-2023 13:12-0500 Mean blood pressure 90 mm[Hg] Barbara [employer] [facility] 07-08-2023 13:12-0500 Systolic blood pressure 119 mm[Hg] Barbara Duron [facility] 07-08-2023 13:12-0500 Respiratory rate 16 /min Barbara [employer] [facility] 07-08-2023 13:06-0500 Diastolic blood pressure 86 mm[Hg] Barbara Duron [facility] 07-08-2023 13:06-0500 Heart rate 74 /min Barbara Duron [facility] 07-08-2023 13:06-0500 Respiratory rate 16 /min Barbara Duron [facility] 07-08-2023 13:06-0500 SaO2% (BldA) [Mass fraction] 96 % Barbara Duron [facility] 07-08-2023 13:06-0500 Systolic blood pressure 137 mm[Hg] Barbara Duron [facility] 07-08-2023 11:54-0500 Heart rate 84 /min Barbara Duron [facility] 07-08-2023 11:54-0500 SaO2% (BldA) [Mass fraction] 95 % Barbara Duron [facility] 07-08-2023 11:54-0500 Body temperature 96.44 [degF] Barbara Duron [facility] 07-08-2023 11:47-0500 Diastolic blood pressure 86 mm[Hg] Barbara Duron [facility] 07-08-2023 11:47-0500 Mean blood pressure 102 mm[Hg] Barbara Duron [facility] 07-08-2023 11:47-0500 Systolic blood pressure 135 mm[Hg] Barbara Duron [facility] 07-08-2023 11:46-0500 Respiratory rate 15 /min Barbara Duron [facility] 07-02-2023 14:33-0500 Body height 175.26 cm MD Rachel Rayo Work Phone: [facility] 07-02-2023 14:33-0500 Body mass index (BMI) [Ratio] 27.2 kg/m2 MD Rachel Rayo Work Phone: [facility] 07-02-2023 14:33-0500 Body weight 83.68 kg MD Rachel Rayo Work Phone: [facility] 07-02-2023 14:33-0500 Diastolic blood pressure 82 mm[Hg] MD Rachel Rayo Work Phone: [facility] 07-02-2023 14:33-0500 Heart rate 82 /min MD Rachel Rayo Work Phone: [facility] 07-02-2023 14:33-0500 Systolic blood pressure 137 mm[Hg] MD Rachel Rayo Work Phone: [facility] 06-22-2023 15:16-0500 Body height 175.3 cm Jodie Matthews MD Work Phone: [phone] [place] [address] 06-22-2023 15:16-0500 Body mass index (BMI) [Ratio] 26.73 kg/m2 Jodie Matthews MD Work Phone: [facility] 06-22-2023 15:16-0500 Body temperature 97.9 [degF] Jodie Matthews MD Work Phone: [facility] 06-22-2023 15:16-0500 Body weight 82.1 kg Jodie Matthews MD Work Phone: [facility] 06-22-2023 15:16-0500 Diastolic blood pressure 54 mm[Hg] Jodie Matthews MD Work Phone: [phone] [place] [address] 06-22-2023 15:16-0500 Heart rate 84 /min Jodie Matthews MD Work Phone: [facility] 06-22-2023 15:16-0500 Respiratory rate 20 /min Jodie Matthews MD Work Phone: [facility] 06-22-2023 15:16-0500 Systolic blood pressure 90 mm[Hg] Jodie Matthews MD Work Phone: [facility] 06-22-2023 10:30-0500 Body mass index (BMI) [Ratio] 26.79 kg/m2 Rich Magana MD MPH Work Phone: [facility] 06-22-2023 10:30-0500 Body temperature 96.8 [degF] Rich Magana MD MPH Work Phone: [facility] 06-22-2023 10:30-0500 Body weight 82.28 kg Rich Magana MD MPH Work Phone: [facility] 06-22-2023 10:30-0500 Diastolic blood pressure 66 mm[Hg] Rich Magana MD MPH Work Phone: [facility] 06-22-2023 10:30-0500 Heart rate 83 /min Rich Magnaa MD MPH Work Phone: [facility] 06-22-2023 10:30-0500 Respiratory rate 18 /min Rich Magana MD MPH Work Phone: [facility] 06-22-2023 10:30-0500 SaO2% (BldA) [Mass fraction] 94 % Rich Magana MD MPH Work Phone: [facility] 06-22-2023 10:30-0500 Systolic blood pressure 104 mm[Hg] Rich Magana MD MPH Work Phone: [facility] 06-02-2023 11:24-0500 Body height 175.26 cm MD Rachel Rayo Work Phone: [facility] 06-02-2023 11:24-0500 Body mass index (BMI) [Ratio] 26.6 kg/m2 MD Rachel Rayo Work Phone: [facility] 06-02-2023 11:24-0500 Body temperature 98 [degF] MD Rachel Rayo Work Phone: [facility] 06-02-2023 11:24-0500 Body weight 81.73 kg MD Rachel Rayo Work Phone: [facility] 06-02-2023 11:24-0500 Diastolic blood pressure 80 mm[Hg] MD Rachel Rayo Work Phone: [facility] 06-02-2023 11:24-0500 Heart rate 86 /min MD Rachel Rayo Work Phone: [facility] 06-02-2023 11:24-0500 Respiratory rate 18 /min MD Rachel Rayo Work Phone: [facility] 06-02-2023 11:24-0500 SaO2% (BldA) [Mass fraction] 94 % MD Rachel Rayo Work Phone: [facility] 06-02-2023 11:24-0500 Systolic blood pressure 125 mm[Hg] MD Rachel Rayo Work Phone: [facility] 04-15-2023 11:37-0500 Body temperature 97.3 [degF] Jodie Matthews MD Work Phone: [facility] 04-15-2023 11:37-0500 Diastolic blood pressure 74 mm[Hg] Jodie Matthews MD Work Phone: [facility] 04-15-2023 11:37-0500 Respiratory rate 16 /min Jodie Matthews MD Work Phone: [facility] 04-15-2023 11:37-0500 Systolic blood pressure 128 mm[Hg] Jodie Matthews MD Work Phone: [facility] 04-08-2023 13:16-0500 Diastolic blood pressure 87 mm[Hg] Barbara Duron [facility] 04-08-2023 13:16-0500 Heart rate 88 /min Barbara Duron [facility] 04-08-2023 13:16-0500 Mean blood pressure 107 mm[Hg] Barbara Duron [facility] 04-08-2023 13:16-0500 Systolic blood pressure 146 mm[Hg] Barbara Duron [facility] 04-08-2023 11:01-0500 Body height 175.3 cm Courtney Brown MD Work Phone: [facility] 04-08-2023 11:01-0500 Body mass index (BMI) [Ratio] 25.99 kg/m2 Courtney Brown MD Work Phone: [facility] 04-08-2023 11:01-0500 Body weight 79.83 kg Courtney Brown MD Work Phone: [facility] 04-08-2023 11:01-0500 Heart rate 91 /min Courtney Brown MD Work Phone: [facility] 04-03-2023 09:15-0500 Body height 175.26 cm Sally Tiwari II Other [employer] [facility] [employer] Other 03-24-2023 12:47-0500 Diastolic blood pressure 70 mm[Hg] Jodie Matthews MD Work Phone: [facility] 03-24-2023 12:47-0500 Heart rate 104 /min Jodie Matthews MD Work Phone: [facility] 03-24-2023 12:47-0500 Respiratory rate 16 /min Jodie Matthews MD Work Phone: [facility] 03-24-2023 12:47-0500 Systolic blood pressure 118 mm[Hg] Jodie Matthews MD Work Phone: [facility] 02-18-2023 13:14-0400 Body height 175.26 cm MD Rachel Rayo Work Phone: [facility] 02-18-2023 13:14-0400 Body temperature 97.4 [degF] MD Rachel Rayo Work Phone: [facility] 02-18-2023 13:14-0400 Body weight 86.4 kg MD Rachel Rayo Work Phone: [facility] 02-18-2023 13:14-0400 Diastolic blood pressure 87 mm[Hg] MD Rachel Rayo Work Phone: [facility] 02-18-2023 13:14-0400 Heart rate 90 /min MD Rachel Rayo Work Phone: [facility] 02-18-2023 13:14-0400 Respiratory rate 20 /min MD Rachel Rayo Work Phone: [facility] 02-18-2023 13:14-0400 SaO2% (BldA) [Mass fraction] 97 % MD Rachel Rayo Work Phone: [facility] 02-18-2023 13:14-0400 Systolic blood pressure 131 mm[Hg] MD Rachel Rayo Work Phone: [facility] 02-11-2023 07:38-0400 Body height 175.[address] 02-11-2023 07:38-0400 Body mass index (BMI) [Ratio] 27.91 kg/m2 [address] 02-11-2023 07:38-0400 Body weight 85.[address] 02-11-2023 07:38-0400 Diastolic blood pressure 78 mm[Hg] [address] 02-11-2023 07:38-0400 Systolic blood pressure 118 mm[Hg] [address] 01-29-2023 14:15-0400 Body height 175.26 cm Rachel Rayo Other [facility] [employer] Other 01-29-2023 14:15-0400 Body mass index (BMI) [Ratio] 27.91 kg/m2 Rachel Rayo Other [employer] Other 01-29-2023 14:15-0400 Body weight 85.73 kg Rachel Rayo Other [employer] Other 01-29-2023 14:15-0400 Diastolic blood pressure 79 mm[Hg] Rachel Rayo Other [facility] [employer] Other 01-29-2023 14:15-0400 Systolic blood pressure 119 mm[Hg] Rachel Rayo Other [facility] [employer] Other 01-27-2023 12:23-0400 Body height 175.26 cm Rachel Rayo Work Phone: WK-Uxjbtrzhqi-Xlcxf r [facility] [address] Work Phone: 01-27-2023 12:23-0400 Body mass index (BMI) [Ratio] 27.93 kg/m2 Rachel Rayo Work Phone: WO-Micoddiodi-Qjcqv r [facility] 1155 Work Phone: 01-27-2023 12:23-0400 Body surface area Derived from formula 2.02 m2 Rachel Rayo Work Phone: WT-Bttczktjxw-Rnqiz r [facility] 1155 Work Phone: 01-27-2023 12:23-0400 Body temperature 96.9 [degF] Rachel Rayo Work Phone: YT-Whmqmkbzqv-Ferqh r [facility] 1155 Work Phone: 01-27-2023 12:23-0400 Body weight 85.79 kg Rachel Rayo Work Phone: EB-Pbpdkzgilr-Yyjlm r [facility] 1155 Work Phone: 01-27-2023 12:23-0400 Diastolic blood pressure 88 mm[Hg] Rachel Rayo Work Phone: EI-Jrpbgqumlt-Tnzqz r [facility] 1155 Work Phone: 01-27-2023 12:23-0400 Heart rate 88 /min Rachel Rayo Work Phone: MF-Uytcvycwze-Dnvml r [address] [address] Work Phone: 01-27-2023 12:23-0400 Respiratory rate 18 /min Rachel Rayo Work Phone: AU-Gdhedfbska-Luoub r [address] [place] [address] Work Phone: 01-27-2023 12:23-0400 SaO2% (BldA) [Mass fraction] 97 % Rachel Rayo Work Phone: GV-Ldxydcunoz-Hvkvq r [place] [address] Work Phone: 01-27-2023 12:23-0400 Systolic blood pressure 135 mm[Hg] Rachel Rayo Work Phone: PV-Gzlduqfkrc-Uqnav r [address] [place] [address] Work Phone: 01-20-2023 11:22-0400 Diastolic blood pressure 70 mm[Hg] Rachel Rayo Work Phone: CY-Fcyasgjhf-Wjrrck [address] [place] Work Phone: 01-20-2023 11:22-0400 Heart rate 88 /min Rachel Rayo Work Phone: TT-Qqcjzrrci-Xgaivs [address] Work Phone: 01-20-2023 11:22-0400 Respiratory rate 16 /min Rachel Rayo Work Phone: LQ-Jjftvpkum-Fleqbd [address] Work Phone: 01-20-2023 11:22-0400 Systolic blood pressure 116 mm[Hg] Rachel Rayo Work Phone: KE-Brdxdslsv-Gslkeo [address] Work Phone: 2023 11:20-0400 Diastolic blood pressure 78 mm[Hg] Barbara Duron [facility] 2023 11:20-0400 Heart rate 102 /min Barbara Duron [facility] 2023 11:20-0400 Mean blood pressure 91 mm[Hg] Barbara Duron [facility] 2023 11:20-0400 Respiratory rate 16 /min Barbara Duron [facility] 2023 11:20-0400 Systolic blood pressure 117 mm[Hg] Barbara Duron [facility] 12-30-2022 11:24-0400 Body height 175.26 cm Rachel Rayo Work Phone: KN-Ngdqydwej-Rnyxts [address] Work Phone: 12-30-2022 11:24-0400 Body mass index (BMI) [Ratio] 28.06 kg/m2 Rachel Rayo Work Phone: WS-Xdmqfnxfy-Gilcrw [address] Work Phone: 12-30-2022 11:24-0400 Body surface area Derived from formula 2.02 m2 Rachel Rayo Work Phone: RV-Rrwthpsfm-Ixxekk [address] Work Phone: 12-30-2022 11:24-0400 Body weight 86.18 kg Rachel Rayo Work Phone: EI-Rdmosqsue-Ftnpzw [address] Work Phone: 12-30-2022 11:24-0400 Diastolic blood pressure 70 mm[Hg] Rachel Rayo Work Phone: IL-Qgivrxrth-Cyjmaq [address] DO Work Phone: 12-30-2022 11:24-0400 Systolic blood pressure 120 mm[Hg] Rachel Rayo Work Phone: FQ-Vagpsbdvz-Fepsmm [address] Work Phone: 12-24-2022 14:11-0400 Heart rate 69 /min Wei Umana [facility] 12-24-2022 14:11-0400 SaO2% (BldA) [Mass fraction] 97 % Wei Zumbar [facility] 12-24-2022 14:11-0400 Diastolic blood pressure 86 mm[Hg] Wei Zumbar [facility] 12-24-2022 14:11-0400 Mean blood pressure 105 mm[Hg] Wei Zumbar [facility] 12-24-2022 14:11-0400 Systolic blood pressure 144 mm[Hg] Wei Zumbar [facility] 12-24-2022 14:11-0400 Respiratory rate 16 /min Wei Zumbar [facility] 12-24-2022 13:57-0400 Diastolic blood pressure 90 mm[Hg] Wei Zumbar [facility] 12-24-2022 13:57-0400 Heart rate 65 /min Wei Zumbar [facility] 12-24-2022 13:57-0400 Respiratory rate 16 /min Wei Zumbar [facility] 12-24-2022 13:57-0400 SaO2% (BldA) [Mass fraction] 99 % Wei Zumbar [facility] 12-24-2022 13:57-0400 Systolic blood pressure 150 mm[Hg] Wei Zumbar [facility] 12-24-2022 12:37-0400 Heart rate 74 /min Wei Zumbar [facility] 12-24-2022 12:37-0400 SaO2% (BldA) [Mass fraction] 96 % Wei Zumbar [facility] 12-24-2022 12:37-0400 Body temperature 97.52 [degF] Wei Zumbar [facility] 12-24-2022 12:37-0400 Diastolic blood pressure 91 mm[Hg] Wei Zumbar [facility] 12-24-2022 12:37-0400 Mean blood pressure 108 mm[Hg] Wei Zumbar [facility] 12-24-2022 12:37-0400 Systolic blood pressure 144 mm[Hg] Wei Zumbar [facility] 12-24-2022 12:37-0400 Respiratory rate 12 /min Wei Zumbar [facility] 11-27-2022 09:48-0400 Diastolic blood pressure 78 mm[Hg] Wei Zumbar [facility] 11-27-2022 09:48-0400 Heart rate 110 /min Wei Zumbar [facility] 11-27-2022 09:48-0400 Mean blood pressure 95 mm[Hg] Wei Zumbar [facility] 11-27-2022 09:48-0400 Respiratory rate 14 /min Wei Zumbar [facility] 11-27-2022 09:48-0400 Systolic blood pressure 128 mm[Hg] Wei Zumbar [facility] 11-11-2022 11:05-0400 Body height 175.26 cm Rachel Rayo [facility] [address] [place] Work Phone: 11-11-2022 11:05-0400 Body mass index (BMI) [Ratio] 28.06 kg/m2 Rachel Rayo Work Phone: [facility] [address] [place] Work Phone: 11-11-2022 11:05-0400 Body surface area Derived from formula 2.02 m2 Rachel Rayo Work Phone: [facility] [address] [place] Work Phone: 11-11-2022 11:05-0400 Body temperature 97.7 [degF] Rachel Rayo Work Phone: [facility] [address] [place] Work Phone: 11-11-2022 11:05-0400 Body weight 86.18 kg Rachel Rayo Work Phone: [facility] [address] [place] Work Phone: 11-11-2022 11:05-0400 Diastolic blood pressure 80 mm[Hg] Rachel Rayo Work Phone: [facility] [address] [place] Work Phone: 11-11-2022 11:05-0400 Heart rate 85 /min Rachel Rayo Work Phone: [facility] [address] [place] Work Phone: 11-11-2022 11:05-0400 Respiratory rate 18 /min Rachel Rayo Work Phone: [facility] [address] [place] Work Phone: 11-11-2022 11:05-0400 SaO2% (BldA) [Mass fraction] 100 % Rachel Rayo Work Phone: [facility] [address] [place] Work Phone: 11-11-2022 11:05-0400 Systolic blood pressure 137 mm[Hg] Rachel Rayo Work Phone: [facility] [address] [place] Work Phone: 11-03-2022 11:11-0400 Body height 175.26 cm Rachel Rayo Work Phone: GL-Zdxiqlniqo-Bvmmf [place] [address] [place] Work Phone: 11-03-2022 11:11-0400 Body mass index (BMI) [Ratio] 27.91 kg/m2 Rachel Amador Rayo Work Phone: MW-Lokdunfdky-Wpiqz [place] [address] Work Phone: 11-03-2022 11:11-0400 Body surface area Derived from formula 2.02 m2 Racheldario Rayo Work Phone: TJ-Mzssmzswph-Hhjdh [place] [address] [place] Work Phone: 11-03-2022 11:11-0400 Body weight 85.73 kg Rachel Amador Rayo Work Phone: VN-Lttcciwlkz-Nybtm [place] [address] [place] Work Phone: 11-03-2022 11:11-0400 Diastolic blood pressure 89 mm[Hg] Rachel Rayo Work Phone: NE-Ykogvsfuze-Zicrq [place] [address] [place] Work Phone: 11-03-2022 11:11-0400 Systolic blood pressure 156 mm[Hg] Rachel Amador Rayo Work Phone: OG-Nffjnfjspn-Esffb [place] [address] [place] Work Phone: 10-29-2022 14:21-0400 Heart rate 72 /min Wei Zumbar [facility] 10-29-2022 14:21-0400 SaO2% (BldA) [Mass fraction] 90 % Wei Zumbar [facility] 10-29-2022 14:21-0400 Diastolic blood pressure 86 mm[Hg] Wei Zumbar [facility] 10-29-2022 14:21-0400 Mean blood pressure 103 mm[Hg] Wei Zumbar [facility] 10-29-2022 14:21-0400 Systolic blood pressure 138 mm[Hg] Wei Zumbar [facility] 10-29-2022 14:21-0400 Respiratory rate 16 /min Wei Zumbar [facility] 10-29-2022 14:12-0400 Diastolic blood pressure 94 mm[Hg] Wei Zumbar [facility] 10-29-2022 14:12-0400 Heart rate 77 /min Wei Zumbar [facility] 10-29-2022 14:12-0400 Respiratory rate 14 /min Wei Zumbar [facility] 10-29-2022 14:12-0400 SaO2% (BldA) [Mass fraction] 97 % Wei Zumbar [facility] 10-29-2022 14:12-0400 Systolic blood pressure 141 mm[Hg] Wei Zumbar [facility] 10-29-2022 13:37-0400 Heart rate 82 /min Wei Zumbar [facility] 10-29-2022 13:37-0400 SaO2% (BldA) [Mass fraction] 96 % Wei Zumbar [facility] 10-29-2022 13:37-0400 Diastolic blood pressure 81 mm[Hg] Wei Zumbar [facility] 10-29-2022 13:37-0400 Mean blood pressure 96 mm[Hg] Wei Zumbar [facility] 10-29-2022 13:37-0400 Systolic blood pressure 125 mm[Hg] Wei Zumbar [facility] 10-29-2022 13:37-0400 Body temperature 97.88 [degF] Wei Umana [facility] 10-29-2022 13:36-0400 Respiratory rate 14 /min Wei Umana [facility] 10-20-2022 11:32-0400 Diastolic blood pressure 74 mm[Hg] Rachel Rayo Work Phone: CZ-Cvyhrldjo-Ybfzjg [address] Work Phone: 10-20-2022 11:32-0400 Heart rate 92 /min Rachel Rayo Work Phone: IT-Vznyxslpr-Lhsnew [address] Work Phone: 10-20-2022 11:32-0400 Respiratory rate 16 /min Rachel Rayo Work Phone: VN-Esjmluabz-Fpztzr [address] Work Phone: 10-20-2022 11:32-0400 Systolic blood pressure 116 mm[Hg] Rachel Rayo Work Phone: MI-Ntxxjiyvm-Zjcpyo [address] Work Phone: 09-09-2022 12:25-0400 Body height 175.26 cm Rachel Rayo Work Phone: AO-Lurxrkkrrr-Tmxsw a Work Phone: 09-09-2022 12:25-0400 Body mass index (BMI) [Ratio] 28.21 kg/m2 Rachel Rayo Work Phone: TE-Xhbpncqycc-Pfnkt a Work Phone: 09-09-2022 12:25-0400 Body surface area Derived from formula 2.03 m2 Rachel Rayo Work Phone: XV-Cetrkfdfud-Dqluf a Work Phone: 09-09-2022 12:25-0400 Body weight 86.64 kg Rachel Rayo Work Phone: JG-Pgdxtspajo-Gohdy a Work Phone: 09-09-2022 12:25-0400 Diastolic blood pressure 90 mm[Hg] Rachel Rayo Work Phone: VG-Qklpfcvhzh-Puzua a Work Phone: 09-09-2022 12:25-0400 Systolic blood pressure 140 mm[Hg] Rachel Rayo Work Phone: MK-Gsbmybyinh-Rshhx a Work Phone: 09-08-2022 10:06-0400 Body height 175.26 cm Rachel Rayo Work Phone: [facility] [address] [place] Work Phone: 09-08-2022 10:06-0400 Body mass index (BMI) [Ratio] 28.21 kg/m2 Rachel Rayo Work Phone: [facility] [address] [place] Work Phone: 09-08-2022 10:06-0400 Body surface area Derived from formula 2.03 m2 Rachel Rayo Work Phone: [facility] [address] [place] Work Phone: 09-08-2022 10:06-0400 Body temperature 97.1 [degF] Rachel Rayo Work Phone: [facility] [address] [place] Work Phone: 09-08-2022 10:06-0400 Body weight 86.64 kg Rachel Rayo Work Phone: [facility] [address] [place] Work Phone: 09-08-2022 10:06-0400 Diastolic blood pressure 84 mm[Hg] Rachel Rayo Work Phone: [facility] [address] [place] Work Phone: 09-08-2022 10:06-0400 Heart rate 89 /min Rachel Rayo Work Phone: [facility] [address] [place] Work Phone: 09-08-2022 10:06-0400 Respiratory rate 16 /min Rachel Rayo Work Phone: [facility] [address] [place] Work Phone: 09-08-2022 10:06-0400 SaO2% (BldA) [Mass fraction] 99 % Rachel Rayo Work Phone: [facility] [address] [place] Work Phone: 09-08-2022 10:06-0400 Systolic blood pressure 140 mm[Hg] Rachel Rayo Work Phone: [facility] [address] [place] Work Phone: 09-03-2022 10:35-0400 Body temperature 96.7 [degF] Rachel Rayo Work Phone: [facility] [address] [place] Work Phone: 09-03-2022 10:35-0400 Diastolic blood pressure 80 mm[Hg] Rachel Rayo Work Phone: [facility] [address] [place] Work Phone: 09-03-2022 10:35-0400 Heart rate 100 /min Rachel Rayo Work Phone: [facility] [address] [place] Work Phone: 09-03-2022 10:35-0400 Respiratory rate 16 /min Rachel Rayo Work Phone: [facility] [address] [place] Work Phone: 09-03-2022 10:35-0400 Systolic blood pressure 130 mm[Hg] Rachel Rayo Work Phone: [facility] [address] [place] Work Phone: 09-03-2022 10:35-0400 11 1 Rachel Rayo Work Phone: [facility] [address] [place] Work Phone: Comment on above: [id number] 08-29-2022 08:19-0400 Body height 175.26 cm Rachel Rayo Work Phone: [facility] [address] [place] Work Phone: 08-29-2022 08:19-0400 Body mass index (BMI) [Ratio] 27.76 kg/m2 Rachel Rayo Work Phone: [facility] [address] [place] Work Phone: 08-29-2022 08:19-0400 Body surface area Derived from formula 2.01 m2 Rahcel Rayo Work Phone: [facility] [address] [place] Work Phone: 08-29-2022 08:19-0400 Body temperature 96 [degF] Rachel Rayo Work Phone: [facility] [address] [place] Work Phone: 08-29-2022 08:19-0400 Body weight 85.28 kg Rachel Rayo Work Phone: [facility] [address] [place] Work Phone: 08-29-2022 08:19-0400 Diastolic blood pressure 76 mm[Hg] Rachel Rayo Work Phone: [facility] [address] [place] Work Phone: 08-29-2022 08:19-0400 Heart rate 96 /min Rachel Rayo Work Phone: [facility] [address] [place] Work Phone: 08-29-2022 08:19-0400 SaO2% (BldA) [Mass fraction] 96 % Rachel Rayo Work Phone: [facility] [address] [place] Work Phone: 08-29-2022 08:19-0400 Systolic blood pressure 118 mm[Hg] Rachel Rayo Work Phone: [facility] [address] [place] Work Phone: 08-25-2022 12:30-0400 Body height 175.26 cm Rachel Rayo Other [employer] Other 08-25-2022 12:30-0400 Body mass index (BMI) [Ratio] 27.64 kg/m2 Rachel Rayo Other [employer] Other 08-25-2022 12:30-0400 Body weight 84.91 kg Rachel Rayo Other [employer] Other 08-25-2022 12:30-0400 Diastolic blood pressure 72 mm[Hg] Rachel Rayo Other [employer] Other 08-25-2022 12:30-0400 SaO2% (BldA) [Mass fraction] 97 % Rachel Rayo Other [employer] Other 08-25-2022 12:30-0400 Systolic blood pressure 110 mm[Hg] Rachel Rayo Other [employer] Other 08-07-2022 09:45-0400 Diastolic blood pressure 81 mm[Hg] Wei Zumbar [facility] 08-07-2022 09:45-0400 Heart rate 82 /min Wei Zumbar [facility] 08-07-2022 09:45-0400 Mean blood pressure 96 mm[Hg] Wei Zumbar [facility] 08-07-2022 09:45-0400 Respiratory rate 18 /min Wei Zumbar [facility] 04-06-2023 09:45-0400 Systolic blood pressure 127 mm[Hg] Wei Umana [facility] 07-18-2022 09:00-0400 Body height 175.26 cm Jodie Blades Other [employer] Other 07-18-2022 09:00-0400 Body mass index (BMI) [Ratio] 28.5 kg/m2 Jodie Blades Other [employer] Other 07-18-2022 09:00-0400 Body weight 87.54 kg Jodie Blades Other [employer] Other 07-18-2022 09:00-0400 Diastolic blood pressure 100 mm[Hg] Jodie Blades Other [employer] Other 07-18-2022 09:00-0400 Systolic blood pressure 146 mm[Hg] Jodie Blades Other [employer] Other 07-16-2022 13:01-0400 Body temperature 97.5 [degF] Rachel Rayo Work Phone: UP-Dxgxnufgxc-Hbtgv a Work Phone: 07-16-2022 13:01-0400 Diastolic blood pressure 86 mm[Hg] Rachel Rayo Work Phone: RZ-Mldopbqxul-Pggws a Work Phone: 07-16-2022 13:01-0400 Heart rate 88 /min Rachel Rayo Work Phone: DS-Zcqnqrgwyf-Dmkyi a Work Phone: 07-16-2022 13:01-0400 Respiratory rate 16 /min Rachel Rayo Work Phone: RV-Ignssaxdqx-Tysdl a Work Phone: 07-16-2022 13:01-0400 Systolic blood pressure 146 mm[Hg] Rachel Rayo Work Phone: VD-Sleqcqucxn-Qnzvw a Work Phone: 07-14-2022 07:03-0400 Body height 175.26 cm MD Rachel Rayo Work Phone: [facility] 07-14-2022 07:03-0400 Body weight 83 kg MD Rachel Rayo Work Phone: [facility] 07-09-2022 10:07-0500 Body height 175.26 cm Rachel Rayo Work Phone: DX-Zfakdmotas-Gwsfv a Work Phone: 07-09-2022 10:07-0500 Body mass index (BMI) [Ratio] 28.65 kg/m2 Rachel aRyo Work Phone: NI-Gnbauxbdsj-Uhaau a Work Phone: 07-09-2022 10:07-0500 Body surface area Derived from formula 2.04 m2 Rachel Rayo Work Phone: IK-Hmsooxjwjj-Mvsni a Work Phone: 07-09-2022 10:07-0500 Body temperature 97.9 [degF] Rachel Rayo Work Phone: SL-Kwqtyoljnk-Eypkc a Work Phone: 07-09-2022 10:07-0500 Body weight 88 kg Rachel Rayo Work Phone: OR-Xafewrfepg-Saqbg a Work Phone: 07-09-2022 10:07-0500 Diastolic blood pressure 86 mm[Hg] Rachel Rayo Work Phone: GF-Bwyotvmoeu-Dpwkn a Work Phone: 07-09-2022 10:07-0500 Heart rate 90 /min Rachel Rayo Work Phone: GN-Gbigdvjmey-Nxdvl a Work Phone: 07-09-2022 10:07-0500 Respiratory rate 18 /min Rachel Rayo Work Phone: NY-Qibmlrhfvc-Utsry a Work Phone: 07-09-2022 10:07-0500 SaO2% (BldA) [Mass fraction] 93 % Rachel Rayo Work Phone: GN-Fsaeifkgeu-Bblct a Work Phone: 07-09-2022 10:07-0500 Systolic blood pressure 126 mm[Hg] Rachel Rayo Work Phone: GA-Lhnwqkfkwx-Ehxkx a Work Phone: 06-16-2022 11:12-0500 Body mass index (BMI) [Ratio] 28.5 kg/m2 Rachel Rayo Work Phone: ET-Vthdpfbdao-Aiffm [place] [address] Work Phone: 06-16-2022 11:12-0500 Body surface area Derived from formula 2.03 m2 Rachel Rayo Work Phone: IJ-Gydihjmrab-Varmv [place] [address] Work Phone: 06-16-2022 11:12-0500 Body weight 87.54 kg Rachel Rayo Work Phone: KB-Sscqjxtdos-Xsbna [place] [address] Work Phone: 06-16-2022 11:12-0500 Diastolic blood pressure 84 mm[Hg] Rachel Rayo Work Phone: JX-Uucyzjhmzw-Vygmb [place] [address] Work Phone: 06-16-2022 11:12-0500 Heart rate 84 /min Rachel Rayo Work Phone: BV-Laypkbbxvt-Zfleh [place] [address] Work Phone: 06-16-2022 11:12-0500 SaO2% (BldA) [Mass fraction] 95 % Rachel Rayo Work Phone: QD-Eagwudimvk-Rjgeb [place] [address] Work Phone: 06-16-2022 11:12-0500 Systolic blood pressure 150 mm[Hg] Rachel Rayo Work Phone: XY-Uywlxkbcmk-Lojqr ake [address] Work Phone: 06-03-2022 15:00-0500 Body height 175.26 cm Rachel Rayo Other [facility] [employer] Other 06-03-2022 15:00-0500 Body mass index (BMI) [Ratio] 28.65 kg/m2 Rachel Rayo Other [employer] Other 06-03-2022 15:00-0500 Body weight 88 kg Rachel Rayo Other [employer] Other 06-03-2022 15:00-0500 Diastolic blood pressure 80 mm[Hg] Rachel Rayo Other [employer] Other 06-03-2022 15:00-0500 Systolic blood pressure 130 mm[Hg] Rachel Rayo Other [employer] Other 06-02-2022 15:26-0500 Body height 175.26 cm Rachel Rayo Work Phone: [facility] [address] [place] Work Phone: 06-02-2022 15:26-0500 Body mass index (BMI) [Ratio] 28.65 kg/m2 Rachel Rayo Work Phone: [facility] [address] [place] Work Phone: 06-02-2022 15:26-0500 Body surface area Derived from formula 2.04 m2 [facility] [place] Work Phone: 06-02-2022 15:26-0500 Body temperature 97.8 [degF] Rachel Rayo Work Phone: [facility] [address] [place] Work Phone: 06-02-2022 15:26-0500 Body weight 88 kg Rachel Rayo Work Phone: [facility] [address] [place] Work Phone: 06-02-2022 15:26-0500 Diastolic blood pressure 95 mm[Hg] Rachel Rayo Work Phone: [facility] [address] [place] Work Phone: 06-02-2022 15:26-0500 Heart rate 88 /min Rachel Rayo Work Phone: [facility] [address] [place] Work Phone: 06-02-2022 15:26-0500 Systolic blood pressure 144 mm[Hg] Rachel Rayo Work Phone: [facility] [address] [place] Work Phone: 06-02-2022 10:33-0500 Body height 175.26 cm Rachel Rayo Work Phone: [facility] [address] [place] Work Phone: 06-02-2022 10:33-0500 Body mass index (BMI) [Ratio] 28.65 kg/m2 Rachel Rayo Work Phone: [facility] [address] [place] Work Phone: 06-02-2022 10:33-0500 Body surface area Derived from formula 2.04 m2 Rachel Rayo Work Phone: [facility] [address] [place] Work Phone: 06-02-2022 10:33-0500 Body temperature 96.8 [degF] Rachel Rayo Work Phone: [facility] [address] [place] Work Phone: 06-02-2022 10:33-0500 Body weight 88 kg Rachel Rayo Work Phone: [facility] [address] [place] Work Phone: 06-02-2022 10:33-0500 Diastolic blood pressure 72 mm[Hg] Rachel Rayo Work Phone: [facility] [address] [place] Work Phone: 06-02-2022 10:33-0500 Heart rate 90 /min Rachel Rayo Work Phone: [facility] [address] [place] Work Phone: 06-02-2022 10:33-0500 SaO2% (BldA) [Mass fraction] 95 % Rachel Rayo Work Phone: [facility] [address] [place] Work Phone: 06-02-2022 10:33-0500 Systolic blood pressure 128 mm[Hg] [facility] [place] Work Phone: 05-19-2022 09:09-0500 Blood Pressure Location Elizabeth CHAUDHRY [facility] 05-19-2022 09:09-0500 Diastolic blood pressure 86 mm[Hg] Elizabeth CHAUDHRY [facility] 05-19-2022 09:09-0500 Heart rate 84 /min Elizabeth CHAUDHRY [facility] 05-19-2022 09:09-0500 Respiratory rate 16 /min Elizabeth CHAUDHRY [facility] 05-19-2022 09:09-0500 Systolic blood pressure 132 mm[Hg] [facility] 05-16-2022 11:13-0500 Body weight 90.2 kg MD Rachel Rayo Work Phone: [facility] 05-16-2022 11:13-0500 Diastolic blood pressure 94 mm[Hg] MD Rachel Rayo Work Phone: [facility] 05-16-2022 11:13-0500 Heart rate 64 /min MD Rachel Rayo Work Phone: [facility] 05-16-2022 11:13-0500 Respiratory rate 18 /min MD Rachel Rayo Work Phone: [facility] 05-16-2022 11:13-0500 SaO2% (BldA) [Mass fraction] 99 % MD Rachel Rayo Work Phone: [facility] 05-16-2022 11:13-0500 Systolic blood pressure 154 mm[Hg] MD Rachel Rayo Work Phone: [facility] 04-16-2022 14:35-0500 Body height 175.26 cm Rachel Rayo Work Phone: UD-Nbkoqyzmv-Cxjpl [address] Work Phone: 04-16-2022 14:35-0500 Body temperature 97.4 [degF] Rachel Rayo Work Phone: MV-Hjyuwfhre-Nahgj [address] Work Phone: 04-16-2022 14:35-0500 Diastolic blood pressure 90 mm[Hg] Rachel Rayo Work Phone: PY-Bhoskqylj-Wpgzd [address] Work Phone: 04-16-2022 14:35-0500 Heart rate 80 /min Rachel Rayo Work Phone: MK-Xaesgckhp-Mtgwm [address] Work Phone: 04-16-2022 14:35-0500 Systolic blood pressure 136 mm[Hg] Rachel Rayo Work Phone: HZ-Dpvbghgns-Fpxkq [address] Work Phone: 04-16-2022 10:54-0500 Body height 175.26 cm MD Rachel Rayo Work Phone: [facility] 04-16-2022 10:54-0500 Body temperature 97.7 [degF] MD Rachel Rayo Work Phone: [facility] 04-16-2022 10:54-0500 Body weight 84.82 kg MD Rachel Rayo Work Phone: [facility] 04-16-2022 10:54-0500 Diastolic blood pressure 80 mm[Hg] MD Rachel Rayo Work Phone: [facility] 04-16-2022 10:54-0500 Heart rate 83 /min MD Rachel Rayo Work Phone: [facility] 04-16-2022 10:54-0500 Respiratory rate 18 /min MD Rachel Rayo Work Phone: [facility] 04-16-2022 10:54-0500 SaO2% (BldA) [Mass fraction] 96 % MD Rachel Rayo Work Phone: [facility] 04-16-2022 10:54-0500 Systolic blood pressure 137 mm[Hg] MD Rachel Rayo Work Phone: [facility] 04-15-2022 11:39-0500 Body height 175.26 cm Rachel Rayo Work Phone: [facility] [address] [place] Work Phone: 04-15-2022 11:39-0500 Body mass index (BMI) [Ratio] 28.65 kg/m2 Rachel Rayo Work Phone: [facility] [address] [place] Work Phone: 04-15-2022 11:39-0500 Body surface area Derived from formula 2.04 m2 Rachel Rayo Work Phone: [facility] [address] [place] Work Phone: 04-15-2022 11:39-0500 Body temperature 97.8 [degF] Rachel Rayo Work Phone: [facility] [address] [place] Work Phone: 04-15-2022 11:39-0500 Body weight 88 kg Rachel Rayo Work Phone: [facility] [address] [place] Work Phone: 04-15-2022 11:39-0500 Diastolic blood pressure 93 mm[Hg] Rachel Rayo Work Phone: [facility] [address] [place] Work Phone: 04-15-2022 11:39-0500 Heart rate 87 /min Rachel Rayo Work Phone: [facility] [address] [place] Work Phone: 04-15-2022 11:39-0500 Respiratory rate 18 /min Rachel Rayo Work Phone: [facility] [address] [place] Work Phone: 04-15-2022 11:39-0500 SaO2% (BldA) [Mass fraction] 94 % Rachel Rayo Work Phone: [facility] [address] [place] Work Phone: 04-15-2022 11:39-0500 Systolic blood pressure 145 mm[Hg] Rachel Rayo Work Phone: [facility] [address] [place] Work Phone: 04-11-2022 16:11-0500 Diastolic blood pressure 89 mm[Hg] MD Rachel Rayo Work Phone: [facility] 04-11-2022 16:11-0500 Heart rate 86 /min MD Rachel Rayo Work Phone: [facility] 04-11-2022 16:11-0500 Respiratory rate 16 /min MD Rachel Rayo Work Phone: [facility] 04-11-2022 16:11-0500 Systolic blood pressure 144 mm[Hg] MD Rachel Rayo Work Phone: [facility] 04-11-2022 14:22-0500 Body temperature 98 [degF] MD Rachel Rayo Work Phone: [facility] 04-11-2022 14:22-0500 SaO2% (BldA) [Mass fraction] 95 % MD Rachel Rayo Work Phone: [facility] 04-10-2022 15:45-0500 Body height 175.26 cm [facility] Other [facility] Other 04-10-2022 15:45-0500 Body mass index (BMI) [Ratio] 28.06 kg/m2 [facility] Other [facility] Other 04-10-2022 15:45-0500 Body weight 86.18 kg Des[facility] Other [facility] Other 04-05-2022 23:33-0500 Diastolic blood pressure 90 mm[Hg] MD Rachel Rayo Work Phone: [facility] 04-05-2022 23:33-0500 Heart rate 76 /min MD Rachel Rayo Work Phone: [facility] 04-05-2022 23:33-0500 Respiratory rate 19 /min MD Rachel Rayo Work Phone: [facility] 04-05-2022 23:33-0500 SaO2% (BldA) [Mass fraction] 97 % MD Rachel Rayo Work Phone: [facility] 04-05-2022 23:33-0500 Systolic blood pressure 137 mm[Hg] MD Rachel Rayo Work Phone: [facility] 04-05-2022 19:52-0500 Body height 175.26 cm MD Rachel Rayo Work Phone: [facility] 04-05-2022 19:52-0500 Body weight 83.91 kg MD Rachel Rayo Work Phone: [facility] 04-03-2022 16:25-0500 Diastolic blood pressure 74 mm[Hg] MD Rachel Rayo Work Phone: [facility] 04-03-2022 16:25-0500 Heart rate 68 /min MD Rachel Rayo Work Phone: [facility] 04-03-2022 16:25-0500 Respiratory rate 16 /min MD Rachel Rayo Work Phone: [facility] 04-03-2022 16:25-0500 Systolic blood pressure 128 mm[Hg] MD Rachel Rayo Work Phone: [facility] 04-03-2022 14:26-0500 Body temperature 98 [degF] MD Rachel Rayo Work Phone: [facility] 04-03-2022 14:26-0500 SaO2% (BldA) [Mass fraction] 97 % MD Rachel Rayo Work Phone: [facility] 03-18-2022 14:32-0500 Body temperature 97.9 [degF] MD Rachel Rayo Work Phone: [facility] 03-18-2022 14:32-0500 Body weight 86.6 kg MD Rachel Rayo Work Phone: [facility] 03-18-2022 14:32-0500 Diastolic blood pressure 73 mm[Hg] MD Rachel Rayo Work Phone: [facility] 03-18-2022 14:32-0500 Heart rate 105 /min MD Rachel Rayo Work Phone: [facility] 03-18-2022 14:32-0500 Respiratory rate 16 /min MD Rachel Rayo Work Phone: [facility] 03-18-2022 14:32-0500 SaO2% (BldA) [Mass fraction] 93 % MD Rachel Rayo Work Phone: [facility] 03-18-2022 14:32-0500 Systolic blood pressure 105 mm[Hg] MD Rachel Rayo Work Phone: [facility] 02-26-2022 10:35-0400 Body temperature 97.1 [degF] Rachel Rayo Work Phone: WW-Iwifhmazw-Xgqgio [address] [place] Work Phone: 02-26-2022 10:35-0400 Diastolic blood pressure 80 mm[Hg] Rachel Rayo Work Phone: WQ-Zwzremcya-Tdkdaj [address] [place] Work Phone: 02-26-2022 10:35-0400 Heart rate 88 /min Rachel Rayo Work Phone: JP-Igtmguhwm-Hoahcp [address] [place] Work Phone: 02-26-2022 10:35-0400 Respiratory rate 16 /min Rachel Rayo Work Phone: LQ-Yyolyxfic-Kpffmm [address] [place] Work Phone: 02-26-2022 10:35-0400 Systolic blood pressure 140 mm[Hg] Rachel Rayo Work Phone: CE-Ajwcadgiu-Pootld [address] [place] Work Phone: 02-24-2022 11:25-0400 Diastolic blood pressure 88 mm[Hg] Rachel Rayo Work Phone: PS-Mvetajsrug-Wvkfh [place] [address] [place] Work Phone: 02-24-2022 11:25-0400 Heart rate 98 /min Rachel Rayo Work Phone: QQ-Ldrypfxhlb-Korla [place] [address] [place] Work Phone: 02-24-2022 11:25-0400 SaO2% (BldA) [Mass fraction] 98 % Rachel Rayo Work Phone: FY-Zwjqfhuvfn-Xhkau [place] [address] [place] Work Phone: 02-24-2022 11:25-0400 Systolic blood pressure 148 mm[Hg] Rachel Rayo Work Phone: RH-Imdvdjcljf-Tiugl [place] [address] [place] Work Phone: 02-12-2022 10:22-0400 Body height 175.26 cm Rachel Rayo Work Phone: [facility] [address] [place] Work Phone: 02-12-2022 10:22-0400 Body mass index (BMI) [Ratio] 28.5 kg/m2 Rachel Rayo Work Phone: [facility] [address] [place] Work Phone: 02-12-2022 10:22-0400 Body surface area Derived from formula 2.03 m2 Rachel Rayo Work Phone: [facility] [address] [place] Work Phone: 02-12-2022 10:22-0400 Body temperature 97.5 [degF] Rachel Rayo Work Phone: [facility] [address] [place] Work Phone: 02-12-2022 10:22-0400 Body weight 87.54 kg Rachel Rayo Work Phone: [facility] [address] [place] Work Phone: 02-12-2022 10:22-0400 Diastolic blood pressure 89 mm[Hg] Rachel Rayo Work Phone: [facility] [address] [place] Work Phone: 02-12-2022 10:22-0400 Heart rate 88 /min Rachel Rayo Work Phone: [facility] [address] [place] Work Phone: 02-12-2022 10:22-0400 Respiratory rate 18 /min Rachel Rayo Work Phone: [facility] [address] [place] Work Phone: 02-12-2022 10:22-0400 SaO2% (BldA) [Mass fraction] 97 % Rachel Rayo Work Phone: [facility] [address] [place] Work Phone: 02-12-2022 10:22-0400 Systolic blood pressure 142 mm[Hg] Rachel Rayo Work Phone: [facility] [address] [place] Work Phone: 01-23-2022 11:30-0400 Body height 175.26 cm [facility] Other [facility] Other 01-23-2022 11:30-0400 Body mass index (BMI) [Ratio] 28.06 kg/m2 [facility] Other [facility] Other 01-23-2022 11:30-0400 Body weight 86.18 kg [facility] Other [facility] Other 01-15-2022 14:08-0400 Body temperature 97.4 [degF] Rachel Rayo Work Phone: TJ-Njafcxcxp-Lkeccs [address] [place] Work Phone: 01-15-2022 14:08-0400 Diastolic blood pressure 78 mm[Hg] Rachel Rayo Work Phone: TA-Jyfnzjslm-Vogtlu [address] [place] Work Phone: 01-15-2022 14:08-0400 Heart rate 88 /min Rachel Rayo Work Phone: RM-Kjzpyigya-Lrdwbz [address] [place] Work Phone: 01-15-2022 14:08-0400 Respiratory rate 16 /min Rachel Rayo Work Phone: PI-Bshcorzlm-Nerohf [address] [place] Work Phone: 01-15-2022 14:08-0400 Systolic blood pressure 126 mm[Hg] Rachel Rayo Work Phone: RM-Fhylssgdt-Ifrgsx [address] [place] Work Phone: 01-14-2022 10:24-0400 Body temperature 98 [degF] MD Rachel Rayo Work Phone: [facility] 01-14-2022 10:24-0400 Body weight 88.49 kg MD Rachel Rayo Work Phone: [facility] 01-14-2022 10:24-0400 Diastolic blood pressure 79 mm[Hg] MD Rachel Rayo Work Phone: [facility] 01-14-2022 10:24-0400 Heart rate 64 /min MD Rachel Rayo Work Phone: [facility] 01-14-2022 10:24-0400 Respiratory rate 20 /min MD Rachel Rayo Work Phone: [facility] 01-14-2022 10:24-0400 SaO2% (BldA) [Mass fraction] 96 % MD Rachel Rayo Work Phone: [facility] 01-14-2022 10:24-0400 Systolic blood pressure 114 mm[Hg] MD Rachel Rayo Work Phone: [facility] 01-14-2022 09:59-0400 Body height 175.26 cm MD Rachel Rayo Work Phone: [facility] 12-16-2021 10:11-0400 Body height 175.26 cm Rachel Rayo Work Phone: [facility] [address] [place] Work Phone: 12-16-2021 10:11-0400 Body mass index (BMI) [Ratio] 27.32 kg/m2 Rachel Rayo Work Phone: [facility] [address] [place] Work Phone: 12-16-2021 10:11-0400 Body surface area Derived from formula 2 m2 Rachel Rayo Work Phone: [facility] [address] [place] Work Phone: 12-16-2021 10:11-0400 Body temperature 97.1 [degF] Rachel Rayo Work Phone: [facility] [address] [place] Work Phone: 12-16-2021 10:11-0400 Body weight 83.92 kg Rachel Rayo Work Phone: [facility] [address] [place] Work Phone: 12-16-2021 10:11-0400 Diastolic blood pressure 91 mm[Hg] Rachel Rayo Work Phone: [facility] [address] [place] Work Phone: 12-16-2021 10:11-0400 Heart rate 102 /min Rachel Rayo Work Phone: [facility] [address] [place] Work Phone: 12-16-2021 10:11-0400 Respiratory rate 18 /min Rachel Rayo Work Phone: [facility] [address] [place] Work Phone: 12-16-2021 10:11-0400 SaO2% (BldA) [Mass fraction] 98 % Rachel Rayo Work Phone: [facility] [address] [place] Work Phone: 12-16-2021 10:11-0400 Systolic blood pressure 129 mm[Hg] Rachel Rayo Work Phone: [facility] [address] [place] Work Phone: 11-29-2021 09:57-0400 Diastolic blood pressure 67 mm[Hg] Rachel Rayo Work Phone: QA-Ldonooieon-Cakok [facility] [address] [place] Work Phone: 11-29-2021 09:57-0400 Heart rate 94 /min Rachel Rayo Work Phone: SX-Ekbqgvvemx-Mftck [place] [address] [place] Work Phone: 11-29-2021 09:57-0400 SaO2% (BldA) [Mass fraction] 98 % Rachel Rayo Work Phone: YP-Slowwltxov-Pqglq [address] [address] [place] Work Phone: 11-29-2021 09:57-0400 Systolic blood pressure 102 mm[Hg] Rachel Rayo Work Phone: MN-Clpjjukciy-Wxsvq [address] [address] [place] Work Phone: 11-06-2021 13:46-0400 Body height 175.26 cm Rachel Rayo Work Phone: BH-Kmjnjdunp-Duxbdg [address] Work Phone: 11-06-2021 13:46-0400 Body temperature 97.6 [degF] Rachel Rayo Work Phone: KC-Kvtfuvckd-Srraxw [address] [place] Work Phone: 11-06-2021 13:46-0400 Diastolic blood pressure 64 mm[Hg] Rachel Rayo Work Phone: WL-Nzeswgvgh-Uztsyv [address] Work Phone: 11-06-2021 13:46-0400 Respiratory rate 16 /min Rachel Rayo Work Phone: JK-Ykcagwqgn-Raegie [address] Work Phone: 11-06-2021 13:46-0400 Systolic blood pressure 102 mm[Hg] Rachel Rayo Work Phone: MG-Jzmtmcymg-Bnjyqg [address] [place] Work Phone: 09-16-2021 14:45-0400 Body temperature 97.1 [degF] Rachel Rayo Work Phone: [facility] [address] [place] Work Phone: 09-16-2021 14:45-0400 Diastolic blood pressure 86 mm[Hg] Rachel Rayo Work Phone: [facility] [address] [place] Work Phone: 09-16-2021 14:45-0400 Heart rate 72 /min Rachel Rayo Work Phone: [facility] [address] [place] Work Phone: 09-16-2021 14:45-0400 Respiratory rate 16 /min Rachel Rayo Work Phone: [facility] [address] [place] Work Phone: 09-16-2021 14:45-0400 Systolic blood pressure 126 mm[Hg] Rachel Rayo Work Phone: [facility] [address] [place] Work Phone: 09-16-2021 09:12-0400 Body height 175.26 cm Rachel Rayo Work Phone: [facility] [address] [place] Work Phone: 09-16-2021 09:12-0400 Body mass index (BMI) [Ratio] 28.06 kg/m2 Rachel Rayo Work Phone: [facility] [address] [place] Work Phone: 09-16-2021 09:12-0400 Body surface area Derived from formula 2.02 m2 Rachel Rayo Work Phone: [facility] [address] [place] Work Phone: 09-16-2021 09:12-0400 Body temperature 96.9 [degF] Rachel Rayo Work Phone: [facility] [address] [place] Work Phone: 09-16-2021 09:12-0400 Body weight 86.18 kg Rachel Rayo Work Phone: [facility] [address] [place] Work Phone: 09-16-2021 09:12-0400 Diastolic blood pressure 75 mm[Hg] Rachel Rayo Work Phone: [facility] [address] [place] Work Phone: 09-16-2021 09:12-0400 Heart rate 85 /min Rachel Rayo Work Phone: [facility] [address] [place] Work Phone: 09-16-2021 09:12-0400 Respiratory rate 16 /min Rachel Rayo Work Phone: [facility] [address] [place] Work Phone: 09-16-2021 09:12-0400 SaO2% (BldA) [Mass fraction] 95 % Rachel Rayo Work Phone: [facility] [address] [place] Work Phone: 09-16-2021 09:12-0400 Systolic blood pressure 127 mm[Hg] Rachel Rayo Work Phone: [facility] [address] [place] Work Phone: 08-21-2021 16:33-0400 Body temperature 97.1 [degF] Rachel Rayo Work Phone: OK-Appironlq-Kxncgy [address] Work Phone: 08-21-2021 16:33-0400 Diastolic blood pressure 70 mm[Hg] Rachel Rayo Work Phone: GK-Ataxtxjwe-Okvlbz [address] Work Phone: 08-21-2021 16:33-0400 Heart rate 92 /min Rachel Rayo Work Phone: IB-Sbtzbdtnj-Ecynmn [address] Work Phone: 08-21-2021 16:33-0400 Respiratory rate 16 /min Rachel Rayo Work Phone: AF-Ufpjmrkmv-Dkwohi [address] Work Phone: 08-21-2021 16:33-0400 Systolic blood pressure 112 mm[Hg] Rachel Rayo Work Phone: BI-Bgfwuokiq-Xywxjy [address] Work Phone: 08-13-2021 11:51-0400 Body height 175.26 cm Rachel Rayo Work Phone: OB-Ayqqmlgyps-Iiqew [address] Work Phone: 08-13-2021 11:51-0400 Body mass index (BMI) [Ratio] 27.91 kg/m2 Rachel Rayo Work Phone: TG-Vmzoohpbik-Gponm [address] [address] Work Phone: 08-13-2021 11:51-0400 Body surface area Derived from formula 2.02 m2 Rachel Rayo Work Phone: LD-Wvstrthewn-Fnffa [address] [address] DO Work Phone: 08-13-2021 11:51-0400 Body weight 85.73 kg Rachel Rayo Work Phone: OX-Zicpbbnkhl-Nybvc [address] [address] DO Work Phone: 08-13-2021 11:51-0400 Diastolic blood pressure 78 mm[Hg] Rachel Rayo Work Phone: ZL-Fhnmdzczec-Ihbku [address] DO Work Phone: 08-13-2021 11:51-0400 Systolic blood pressure 101 mm[Hg] Rachel Rayo Work Phone: XP-Flmqfqycrw-Bgzeb [address] [address] DO Work Phone: 07-30-2021 12:35-0400 Heart rate 88 /min MD Rachel Rayo Work Phone: [facility] 07-30-2021 12:35-0400 Respiratory rate 20 /min MD Rachel Rayo Work Phone: [facility] 07-30-2021 11:58-0400 Body temperature 97.3 [degF] MD Rachel Rayo Work Phone: [facility] 07-30-2021 11:58-0400 Diastolic blood pressure 73 mm[Hg] MD Rachel Rayo Work Phone: [facility] 07-30-2021 11:58-0400 Inhaled oxygen flow rate 2 L/min MD Rachel Rayo Work Phone: [facility] 07-30-2021 11:58-0400 SaO2% (BldA) [Mass fraction] 98 % MD Rachel Rayo Work Phone: [facility] 07-30-2021 11:58-0400 Systolic blood pressure 113 mm[Hg] MD Rachel Rayo Work Phone: [facility] 07-30-2021 05:22-0400 Body weight 84.2 kg MD Rachel Rayo Work Phone: [facility] 07-29-2021 16:04-0400 65 1 Rachel Rayo Work Phone: -[facility] [address] [place] Work Phone: Comment on above: [id number] 07-29-2021 09:40-0400 Body height 175.26 cm MD Rachel Rayo Work Phone: [facility] 07-29-2021 09:40-0400 Body mass index (BMI) [Ratio] 27.1 kg/m2 MD Rachel Rayo Work Phone: [facility] 06-19-2021 12:59-0500 Body temperature 96 [degF] Rachel Rayo Work Phone: TT-Aqlnzphzvr-Onhai a Work Phone: 06-19-2021 12:59-0500 Diastolic blood pressure 56 mm[Hg] Rachel Rayo Work Phone: BF-Cgtsgsfftc-Rziho a Work Phone: 06-19-2021 12:59-0500 Heart rate 96 /min Rachel Rayo Work Phone: CV-Fgqoauxjzs-Xdyzb a Work Phone: 06-19-2021 12:59-0500 Respiratory rate 16 /min Rachel Rayo Work Phone: JL-Punfrusdwg-Fcmcb a Work Phone: 06-19-2021 12:59-0500 Systolic blood pressure 100 mm[Hg] Rachel Rayo Work Phone: DY-Tsalprqlck-Kowuo a Work Phone: 06-18-2021 11:04-0500 Body height 175.26 cm Rachel Rayo Work Phone: JI-Icgnpjqvvx-Mmpaj [address] Work Phone: 06-18-2021 11:04-0500 Body mass index (BMI) [Ratio] 28.8 kg/m2 Rachel Rayo Work Phone: QC-Pvlpiejomf-Ziqmc [address] [address] DO Work Phone: 06-18-2021 11:04-0500 Body surface area Derived from formula 2.04 m2 Rachel Rayo Work Phone: II-Vhbgcyaxmg-Nrahd [place] [address] DO Work Phone: 06-18-2021 11:04-0500 Body weight 88.45 kg Rachel Rayo Work Phone: IL-Udbebcrzfk-Gcboh [address] [address] DO Work Phone: 06-18-2021 11:04-0500 Diastolic blood pressure 67 mm[Hg] Rachel Rayo Work Phone: EK-Wnomsciiwm-Tfxms [address] DO Work Phone: 06-18-2021 11:04-0500 Systolic blood pressure 107 mm[Hg] Rachel Rayo Work Phone: ZV-Gquaczsxnb-Fogxu [address] [address] DO Work Phone: 06-12-2021 11:39-0500 Body height 175.26 cm Rachel Rayo Work Phone: KF-Rxhtchepxj-Lpckl [address] [address] DO Work Phone: 06-12-2021 11:39-0500 Body mass index (BMI) [Ratio] 28.8 kg/m2 Rachel Rayo Work Phone: WA-Qmnccbdtdl-Gvqiy [address] DO Work Phone: 06-12-2021 11:39-0500 Body surface area Derived from formula 2.04 m2 Rachel Rayo Work Phone: VC-Xridooxdoj-Bqljz [address] DO Work Phone: 06-12-2021 11:39-0500 Body temperature 97.9 [degF] Rachel Rayo Work Phone: MQ-Rivziylbif-Brinb [address] DO Work Phone: 06-12-2021 11:39-0500 Body weight 88.45 kg Rachel Rayo Work Phone: MM-Olrqvladqm-Onefg [address] [address] DO Work Phone: 06-12-2021 11:39-0500 Diastolic blood pressure 85 mm[Hg] Rachel Rayo Work Phone: BH-Dwfnfkdgim-Xtgqt [address] [address] DO Work Phone: 06-12-2021 11:39-0500 Heart rate 93 /min Rachel Rayo Work Phone: ZU-Bmggbuzlgd-Flkks [address]r [address] DO Work Phone: 06-12-2021 11:39-0500 Respiratory rate 18 /min Rachel Rayo Work Phone: XU-Qqrvathvef-Ddmdk [place] [address] DO Work Phone: 06-12-2021 11:39-0500 SaO2% (BldA) [Mass fraction] 90 % Rachel Rayo Work Phone: DB-Syysmtxnxe-Dbnfl [address] [address] DO Work Phone: 06-12-2021 11:39-0500 Systolic blood pressure 131 mm[Hg] Rachel Rayo Work Phone: RL-Oydpxufkva-Bwlgy [place] [address] DO Work Phone: 06-03-2021 09:33-0500 Body temperature 96.7 [degF] Rachel Rayo Work Phone: [facility] [address] [place] Work Phone: 06-03-2021 09:33-0500 Diastolic blood pressure 76 mm[Hg] Rachel Rayo Work Phone: [facility] [address] [place] Work Phone: 06-03-2021 09:33-0500 Heart rate 101 /min Rachel Rayo Work Phone: [facility] [address] [place] Work Phone: 06-03-2021 09:33-0500 SaO2% (BldA) [Mass fraction] 97 % Rachel Rayo Work Phone: [facility] [address] [place] Work Phone: 06-03-2021 09:33-0500 Systolic blood pressure 120 mm[Hg] Rachel Rayo Work Phone: [facility] [address] [place] Work Phone: 05-16-2021 09:39-0500 Body height 175.26 cm Rachel Rayo Work Phone: IJ-Tiyqiwous-Zrqho 204 Work Phone: 05-16-2021 09:39-0500 Body mass index (BMI) [Ratio] 28.56 kg/m2 Rachel Rayo Work Phone: QY-Vujzlltqk-Onxrn 204 Work Phone: 05-16-2021 09:39-0500 Body surface area Derived from formula 2.04 m2 Rachel Rayo Work Phone: JC-Xfllfqyig-Aegfn 204 Work Phone: 05-16-2021 09:39-0500 Body temperature 97.3 [degF] Rachel Rayo Work Phone: HK-Htjttxotb-Jrhet [address] Work Phone: 05-16-2021 09:39-0500 Body weight 87.72 kg Rachel aRyo Work Phone: RM-Azkeuzrqr-Sugfe [address] Work Phone: 05-16-2021 09:39-0500 Diastolic blood pressure 78 mm[Hg] Rachel Rayo Work Phone: VF-Lwgcmsfck-Gngwr 204 Work Phone: 05-16-2021 09:39-0500 Heart rate 70 /min Rachel Rayo Work Phone: JH-Jhpqzciui-Jjzam [address] Work Phone: 05-16-2021 09:39-0500 Respiratory rate 16 /min Rachel Rayo Work Phone: JY-Spasfiyer-Afywh [address] Work Phone: 05-16-2021 09:39-0500 SaO2% (BldA) [Mass fraction] 95 % Rachel Rayo Work Phone: DN-Flhhmytqw-Xwlck [address] Work Phone: 05-16-2021 09:39-0500 Systolic blood pressure 122 mm[Hg] Rachel Rayo Work Phone: YZ-Iqimjvskl-Hzxau [address] Work Phone: 05-15-2021 11:16-0500 Body temperature 96.6 [degF] Rachel Rayo Work Phone: JC-Dudcuvdnc-Ggvvgg l [address] Work Phone: 05-15-2021 11:16-0500 Diastolic blood pressure 70 mm[Hg] Rachel Rayo Work Phone: GR-Wihqidvwc-Qlonky l [address] Work Phone: 05-15-2021 11:16-0500 Heart rate 104 /min Rachel Rayo Work Phone: OG-Okkuhjhep-Pnnpkd l [address] Work Phone: 05-15-2021 11:16-0500 Respiratory rate 16 /min Rachel Rayo Work Phone: DY-Dzdpheyov-Xaevxb l [address] Work Phone: 05-15-2021 11:16-0500 Systolic blood pressure 120 mm[Hg] Rachel Rayo Work Phone: TY-Msztqddlj-Tppzka l [address] Work Phone: 05-13-2021 11:40-0500 Body mass index (BMI) [Ratio] 28.35 kg/m2 Rachel Rayo Work Phone: EK-Ywxkhwxiqa-Bhyoh [place] [address] DO Work Phone: 05-13-2021 11:40-0500 Body surface area Derived from formula 2.03 m2 Rachel Rayo Work Phone: LP-Gakncfykyn-Agyli [place] [address] DO Work Phone: 05-13-2021 11:40-0500 Body weight 87.09 kg Rachel Rayo Work Phone: TV-Mjwszdjwdx-Vbrzx [place] [address] DO Work Phone: 05-13-2021 11:40-0500 Diastolic blood pressure 76 mm[Hg] Rachel Rayo Work Phone: RH-Xzhfmqeksp-Nhnlh [address] DO Work Phone: 05-13-2021 11:40-0500 Heart rate 115 /min Rachel Rayo Work Phone: IL-Lzyjgfqpte-Vvmmq [address] DO Work Phone: 05-13-2021 11:40-0500 SaO2% (BldA) [Mass fraction] 94 % Rachel Rayo Work Phone: RQ-Mivkffojsb-Qcqhe [address] DO Work Phone: 05-13-2021 11:40-0500 Systolic blood pressure 134 mm[Hg] Rachel Rayo Work Phone: SM-Hcsoaozjyb-Deqdx [address] [address] DO Work Phone: 05-07-2021 08:15-0500 Body height 175.26 cm Rachel Rayo Work Phone: [facility] [address] [place] Work Phone: 05-07-2021 08:15-0500 Body mass index (BMI) [Ratio] 28.35 kg/m2 Rachel Rayo Work Phone: [facility] [address] [place] Work Phone: 05-07-2021 08:15-0500 Body surface area Derived from formula 2.03 m2 Rachel Rayo Work Phone: [facility] [address] [place] Work Phone: 05-07-2021 08:15-0500 Body temperature 96.8 [degF] Rachel Rayo Work Phone: [facility] [address] [place] Work Phone: 05-07-2021 08:15-0500 Body weight 87.09 kg Rachel Rayo Work Phone: [facility] [address] [place] Work Phone: 05-07-2021 08:15-0500 Diastolic blood pressure 81 mm[Hg] Rachel Rayo Work Phone: [facility] [address] [place] Work Phone: 05-07-2021 08:15-0500 Heart rate 96 /min Rachel Rayo Work Phone: [facility] [address] [place] Work Phone: 05-07-2021 08:15-0500 Respiratory rate 18 /min Rachel Rayo Work Phone: [facility] [address] [place] Work Phone: 05-07-2021 08:15-0500 SaO2% (BldA) [Mass fraction] 98 % Rachel Rayo Work Phone: [facility] [address] [place] Work Phone: 05-07-2021 08:15-0500 Systolic blood pressure 136 mm[Hg] Rachel Rayo Work Phone: [facility] [address] [place] Work Phone: 04-10-2021 11:27-0500 Body height 175.26 cm Rachel Rayo Work Phone: FP-Jqlyqagnn-Cdcofx [address] DO Work Phone: 04-10-2021 11:27-0500 Body mass index (BMI) [Ratio] 28.8 kg/m2 Rachel Rayo Work Phone: TE-Efrfpxmda-Iutvvk [address] DO Work Phone: 04-10-2021 11:27-0500 Body surface area Derived from formula 2.04 m2 Rachel Rayo Work Phone: XD-Norekzymg-Rzwjcn [address] DO Work Phone: 04-10-2021 11:27-0500 Body temperature 96 [degF] Rachel Rayo Work Phone: KK-Tnnwnprnn-Wydzrz 170 DO Work Phone: 04-10-2021 11:27-0500 Body weight 88.45 kg Rachel Rayo Work Phone: RH-Zqtfcwtpy-Vcfred [address] DO Work Phone: 04-10-2021 11:27-0500 Diastolic blood pressure 84 mm[Hg] Rachel Rayo Work Phone: JD-Rfkitlvzx-Ejouxx [address] DO Work Phone: 04-10-2021 11:27-0500 Heart rate 108 /min Rachel Rayo Work Phone: PV-Euxmicvew-Hizylc [address] DO Work Phone: 04-10-2021 11:27-0500 Respiratory rate 16 /min Rachel Rayo Work Phone: EO-Qwhzivxvo-Xmqeym 170 DO Work Phone: 04-10-2021 11:27-0500 Systolic blood pressure 136 mm[Hg] Rachel Rayo Work Phone: OA-Phqyqpkcd-Gkvtyo 170 DO Work Phone: 04-01-2021 11:26-0500 Body mass index (BMI) [Ratio] 29.09 kg/m2 Rachel Rayo Work Phone: [facility] [id number] DO Work Phone: 04-01-2021 11:26-0500 Body surface area Derived from formula 2.05 m2 Rachel Rayo Work Phone: [facility] [id number] DO Work Phone: 04-01-2021 11:26-0500 Body weight 89.36 kg Rachel Rayo Work Phone: [facility] A2470 DO Work Phone: 04-01-2021 11:26-0500 Heart rate 99 /min Rachel Rayo Work Phone: [facility] A2470 DO Work Phone: 04-01-2021 11:26-0500 SaO2% (BldA) [Mass fraction] 95 % Rachel Rayo Work Phone: [facility] A2470 DO Work Phone: 04-01-2021 10:32-0500 Body height 175.26 cm Rachel Rayo Work Phone: [facility] A2470 DO Work Phone: 04-01-2021 10:32-0500 Body mass index (BMI) [Ratio] 29.25 kg/m2 Rachel Rayo Work Phone: [facility] A2470 DO Work Phone: 04-01-2021 10:32-0500 Body surface area Derived from formula 2.06 m2 Rachel Rayo Work Phone: [facility] A2470 DO Work Phone: 04-01-2021 10:32-0500 Body temperature 97.2 [degF] Rachel Rayo Work Phone: [facility] A2470 DO Work Phone: 04-01-2021 10:32-0500 Body weight 89.84 kg Rachel Rayo Work Phone: [facility] A2470 DO Work Phone: 04-01-2021 10:32-0500 Diastolic blood pressure 75 mm[Hg] Rachel Rayo Work Phone: [facility] A2470 DO Work Phone: 04-01-2021 10:32-0500 Heart rate 94 /min Rachel Rayo Work Phone: [facility] A2470 DO Work Phone: 04-01-2021 10:32-0500 SaO2% (BldA) [Mass fraction] 97 % Rachel Rayo Work Phone: [facility] A2470 DO Work Phone: 04-01-2021 10:32-0500 Systolic blood pressure 123 mm[Hg] Rachel Rayo Work Phone: [facility] A2470 DO Work Phone: 04-01-2021 10:32-0500 17 1 Rachel Rayo Work Phone: [facility] A2470 DO Work Phone: Comment on above: [facility] 04-01-2021 10:32-0500 3 1 Rachel [facility] Work Phone: Comment on above: [employer] 02-21-2021 11:04-0400 Body temperature 96.6 [degF] Rachel Rayo Work Phone: HJ-Oiksrgfzf-Ewabft 170 DO Work Phone: 02-21-2021 11:04-0400 Diastolic blood pressure 70 mm[Hg] Rachel Rayo Work Phone: XR-Cubcfwskc-Fpiiff 170 DO Work Phone: 02-21-2021 11:04-0400 Heart rate 80 /min Rachel Rayo Work Phone: PU-Kdnnzfral-Smpwcc 170 DO Work Phone: 02-21-2021 11:04-0400 Respiratory rate 16 /min Rachel Rayo Work Phone: AK-Dsvvdwidj-Xzidgw 170 DO Work Phone: 02-21-2021 11:04-0400 Systolic blood pressure 134 mm[Hg] Rachel Rayo Work Phone: QU-Louyvhsft-Tvnsrf 170 DO Work Phone: 02-05-2021 14:31-0400 Body height 175.26 cm Rachel Rayo Work Phone: CC-Uvkqdgqxw-Nvfer 204 Work Phone: 02-05-2021 14:31-0400 Body mass index (BMI) [Ratio] 29.68 kg/m2 Rachel Rayo Work Phone: HZ-Yimogqjbp-Rcbbl 204 Work Phone: 02-05-2021 14:31-0400 Body surface area Derived from formula 2.07 m2 Rachel Rayo Work Phone: SY-Qjhgdbcwh-Gdsmm 204 Work Phone: 02-05-2021 14:31-0400 Body temperature 97.2 [degF] Rachel Rayo Work Phone: VK-Uyyccmzso-Adsxi 204 Work Phone: 02-05-2021 14:31-0400 Body weight 91.17 kg Rachel Rayo Work Phone: WS-Qwqvnizhn-Glauy 204 Work Phone: 02-05-2021 14:31-0400 Diastolic blood pressure 70 mm[Hg] Rachel Rayo Work Phone: YO-Ypqcljqtu-Yoekg 204 Work Phone: 02-05-2021 14:31-0400 Heart rate 82 /min Rachel Rayo Work Phone: PO-Jqhauykct-Xvdpz 204 Work Phone: 02-05-2021 14:31-0400 Respiratory rate 18 /min Rachel Rayo Work Phone: XK-Abdqdutnz-Rfcmy 204 Work Phone: 02-05-2021 14:31-0400 SaO2% (BldA) [Mass fraction] 95 % Rachel Rayo Work Phone: SG-Intgtdrvn-Shskp 204 Work Phone: 02-05-2021 14:31-0400 Systolic blood pressure 120 mm[Hg] Rachel Rayo Work Phone: SL-Kpbwpvzno-Qkixo 204 Work Phone: 01-15-2021 08:06-0400 Body height 175.26 cm Rachel Rayo Work Phone: DC-Wmaofdzkil-Qdhca ake 2100 DO Work Phone: 01-15-2021 08:06-0400 Body mass index (BMI) [Ratio] 28.94 kg/m2 Rachel Rayo Work Phone: VN-Jedztakakd-Dbncg ake 2100 DO Work Phone: 01-15-2021 08:06-0400 Body surface area Derived from formula 2.05 m2 Rachel Rayo Work Phone: YF-Pozznbxtop-Cbnqr [place] 2100 DO Work Phone: 01-15-2021 08:06-0400 Body temperature 97.6 [degF] Rachel Rayo Work Phone: WK-Qhksvjxmzj-Qvasd [place] 2100 DO Work Phone: 01-15-2021 08:06-0400 Body weight 88.91 kg Rachel Rayo Work Phone: YQ-Zgceifhppv-Flkpo [place] 2100 DO Work Phone: 01-15-2021 08:06-0400 Diastolic blood pressure 91 mm[Hg] Rachel Rayo Work Phone: XW-Omdarkmnbb-Ntjud [place] 2100 DO Work Phone: 01-15-2021 08:06-0400 Heart rate 84 /min Rachel Rayo Work Phone: EE-Sqiklgzfrf-Kbubm [place] 2100 DO Work Phone: 01-15-2021 08:06-0400 Respiratory rate 18 /min Rachel Rayo Work Phone: KB-Lkvikcynxj-Thqgt [place] 2100 DO Work Phone: 01-15-2021 08:06-0400 SaO2% (BldA) [Mass fraction] 94 % Rachel Rayo Work Phone: NV-Lfyanscohq-Jjqve [place] 2100 DO Work Phone: 01-15-2021 08:06-0400 Systolic blood pressure 136 mm[Hg] Rachel Rayo Work Phone: ZN-Qfmvsbtvzn-Bnpmj [place] 2100 DO Work Phone: 01-02-2021 09:41-0400 Body height 175.26 cm Rachel Rayo Work Phone: [facility] [address] [place] Work Phone: 01-02-2021 09:41-0400 Body mass index (BMI) [Ratio] 28.8 kg/m2 Rachel Rayo Work Phone: [facility] [address] [place] Work Phone: 01-02-2021 09:41-0400 Body surface area Derived from formula 2.04 m2 Rachel Rayo Work Phone: [facility] [address] [place] Work Phone: 01-02-2021 09:41-0400 Body temperature 97.2 [degF] Rachel Rayo Work Phone: [facility] [address] [place] Work Phone: 01-02-2021 09:41-0400 Body weight 88.45 kg Rachel Rayo Work Phone: [facility] [address] [place] Work Phone: 01-02-2021 09:41-0400 Diastolic blood pressure 89 mm[Hg] Rachel Rayo Work Phone: [facility] [address] [place] Work Phone: 01-02-2021 09:41-0400 Heart rate 93 /min Rachel Rayo Work Phone: [facility] [address] [place] Work Phone: 01-02-2021 09:41-0400 Respiratory rate 18 /min Rachel Rayo Work Phone: [facility] [address] [place] Work Phone: 01-02-2021 09:41-0400 SaO2% (BldA) [Mass fraction] 90 % Rachel Rayo Work Phone: [facility] [address] [place] Work Phone: 01-02-2021 09:41-0400 Systolic blood pressure 125 mm[Hg] Rachel Rayo Work Phone: [facility] [facility] [place] Work Phone: 12-12-2020 14:10-0400 Body temperature 96.8 [degF] Rachel Rayo Work Phone: TS-Oiokodkdj-Crapbe 170 DO Work Phone: 12-12-2020 14:10-0400 Diastolic blood pressure 80 mm[Hg] Rachel Rayo Work Phone: EQ-Vrrloflsg-Gvdhbx 170 DO Work Phone: 12-12-2020 14:10-0400 Heart rate 72 /min Rachel Rayo Work Phone: SE-Ovuqjjgxc-Bgdyly 170 DO Work Phone: 12-12-2020 14:10-0400 Respiratory rate 16 /min Rachel Rayo Work Phone: UF-Zekcvvoik-Zwmvvx 170 DO Work Phone: 12-12-2020 14:10-0400 Systolic blood pressure 130 mm[Hg] Rachel Rayo Work Phone: QO-Vfziofuwb-Ckuvxg 170 DO Work Phone: 12-06-2020 08:38-0400 Body height 175.26 cm [facility] [place] Work Phone: 12-06-2020 08:38-0400 Body mass index (BMI) [Ratio] 29.31 kg/m2 Rachel Rayo [facility] [place] Work Phone: 12-06-2020 08:38-0400 Body surface area Derived from formula 2.06 m2 Rachel Rayo [facility] [place] Work Phone: 12-06-2020 08:38-0400 Body temperature 97.4 [degF] Rachel Rayo [facility] [place] Work Phone: 12-06-2020 08:38-0400 Body weight 90.04 kg Rachel Rayo [facility] [place] Work Phone: 12-06-2020 08:38-0400 Diastolic blood pressure 89 mm[Hg] [facility] [place] Work Phone: 12-06-2020 08:38-0400 Heart rate 68 /min Rachel Rayo [facility] [place] Work Phone: 12-06-2020 08:38-0400 Respiratory rate 16 /min Rachel Rayo [facility] [place] Work Phone: 12-06-2020 08:38-0400 SaO2% (BldA) [Mass fraction] 97 % Rachel Rayo [facility] [place] Work Phone: 12-06-2020 08:38-0400 Systolic blood pressure 150 mm[Hg] Rachel Rayo [facility] [place] Work Phone: 11-26-2020 10:52-0400 Diastolic blood pressure 75 mm[Hg] Rachel Rayo Work Phone: XD-Cpgiaelzyn-Cwltz [place] 2100 DO Work Phone: 11-26-2020 10:52-0400 Heart rate 91 /min Rachel Rayo Work Phone: UZ-Tcghhbengy-Bhvyr [place] 2100 DO Work Phone: 11-26-2020 10:52-0400 SaO2% (BldA) [Mass fraction] 94 % Rachel Rayo Work Phone: BR-Sfckkhwiwl-Zqfba [place] 2100 DO Work Phone: 11-26-2020 10:52-0400 Systolic blood pressure 133 mm[Hg] Rcahel Rayo Work Phone: IJ-Dojmywzguq-Xvehi [place] 2100 DO Work Phone: 11-22-2020 11:20-0400 Body temperature 96.1 [degF] Rachel Rayo Work Phone: RJ-Dlxhxaniv-Mxkzph 170 DO Work Phone: 11-22-2020 11:20-0400 Diastolic blood pressure 70 mm[Hg] Rachel Rayo Work Phone: KB-Khrmxjvbc-Lvxmrj 170 DO Work Phone: 11-22-2020 11:20-0400 Heart rate 88 /min Rachel Rayo Work Phone: HC-Hcgrjnxvg-Xjrzqc 170 DO Work Phone: 11-22-2020 11:20-0400 Respiratory rate 20 /min Rachel Rayo Work Phone: YO-Uwwajmdxu-Otjwod 170 DO Work Phone: 11-22-2020 11:20-0400 Systolic blood pressure 126 mm[Hg] Rachel Rayo Work Phone: ST-Wgntmimih-Qstpyl 170 DO Work Phone: 11-07-2020 14:31-0400 Body temperature 96 [degF] Rachel Rayo Work Phone: IP-Kxvuhveoq-Ddrpys 170 DO Work Phone: 11-07-2020 14:31-0400 Diastolic blood pressure 70 mm[Hg] Rachel Rayo Work Phone: YZ-Awubgtssk-Decnxi 170 DO Work Phone: 11-07-2020 14:31-0400 Heart rate 100 /min Rachel Rayo Work Phone: GE-Criwffnmr-Qavjxi 170 DO Work Phone: 11-07-2020 14:31-0400 Respiratory rate 16 /min Rachel Rayo Work Phone: YD-Iqpaqbojl-Dxbvzc 170 DO Work Phone: 11-07-2020 14:31-0400 Systolic blood pressure 124 mm[Hg] Rachel Rayo Work Phone: LB-Jruqccdwr-Wykchp 170 DO Work Phone: 10-03-2020 14:24-0400 Body temperature 95.9 [degF] Rachel Rayo Work Phone: YA-Luhfwyqzv-Mxjjsx 170 DO Work Phone: 10-03-2020 14:24-0400 Diastolic blood pressure 74 mm[Hg] Rachel Rayo Work Phone: LV-Liehunhip-Zeirns 170 DO Work Phone: 10-03-2020 14:24-0400 Heart rate 100 /min Rachel Rayo Work Phone: VV-Emahpzcra-Alfumq 170 DO Work Phone: 10-03-2020 14:24-0400 Respiratory rate 16 /min Rachel Rayo Work Phone: FJ-Vdfwkdwqt-Epjjtz 170 DO Work Phone: 10-03-2020 14:24-0400 Systolic blood pressure 130 mm[Hg] Rachel Rayo Work Phone: DP-Thuqgbrnj-Jzvqxd 170 DO Work Phone: 09-24-2020 14:53-0400 Body mass index (BMI) [Ratio] 27.32 kg/m2 Rachel Rayo Work Phone: RJ-Epyhlsjqev-Ejvwr [place] 2100 DO Work Phone: 09-24-2020 14:53-0400 Body surface area Derived from formula 2 m2 Rachel Rayo Work Phone: PF-Vkemyxhscc-Bjagx [place] 2100 DO Work Phone: 09-24-2020 14:53-0400 Body weight 83.91 kg Rachel Amador Rayo Work Phone: FT-Gfzijnrlpf-Mvqoe [place] 2100 DO Work Phone: 09-24-2020 14:53-0400 Diastolic blood pressure 70 mm[Hg] Rachel Rayo Work Phone: OF-Vcmmaedkuq-Nryrr [place] 2100 DO Work Phone: 09-24-2020 14:53-0400 Heart rate 70 /min Rachel Amador Rayo Work Phone: DE-Mdulponkav-Gwrhv [place] 2100 DO Work Phone: 09-24-2020 14:53-0400 Systolic blood pressure 128 mm[Hg] Rachel Amador Rayo Work Phone: YE-Tlvvjbfigu-Bcayq [place] 2100 DO Work Phone: 09-19-2020 13:33-0400 Body height 175.26 cm Courtney SHARPENeurology-M sanjiv 170 DO Work Phone: 09-19-2020 13:33-0400 Body mass index (BMI) [Ratio] 27.47 kg/m2 Courtney Brown MD, [facility] 170 DO Work Phone: 09-19-2020 13:33-0400 Body surface area Derived from formula 2 m2 Courtney Brown MD, [facility] 170 DO Work Phone: 09-19-2020 13:33-0400 Body temperature 96.8 [degF] Courtney Brown MD, MP[facility]- [place] 170 DO Work Phone: Comment on above: Method: Temporal 09-19-2020 13:33-0400 Body weight 84.37 kg Courtney SHARPENeurology-M sanjiv 170 DO Work Phone: 09-19-2020 13:33-0400 Diastolic blood pressure 70 mm[Hg] Courtney Brown MD RK-Yxgrhxomi-Ikzyaz 170 DO Work Phone: Comment on above: Location: [facility]; Position: Sitting 09-19-2020 13:33-0400 Heart rate 92 /min Courtney Brown MD UE-Enxpcprbo-W sanjiv 170 DO Work Phone: Comment on above: Location: [facility]; Quality: Regular 09-19-2020 13:33-0400 Respiratory rate 16 /min Courtney [facility] [place] [facility] Work Phone: Comment on above: Quality: Normal 09-19-2020 13:33-0400 Systolic blood pressure 104 mm[Hg] Courtney Brown MD EL-Zykzcpuif-Nkhtoh 170 DO Work Phone: Comment on above: Location: [facility]; Position: Sitting 09-19-2020 11:33-0400 Body height 175.26 cm Rachel Rayo Work Phone: WT-Drfdthklnz-Vxyen [place] 2100 DO Work Phone: 09-19-2020 11:33-0400 Body mass index (BMI) [Ratio] 27.47 kg/m2 Rachel Rayo Work Phone: CY-Yqkubkzzcv-Fxwgc [place] 2100 DO Work Phone: 09-19-2020 11:33-0400 Body surface area Derived from formula 2 m2 Rachel Rayo Work Phone: XA-Cxtcihppqo-Ymdip [place] 2100 DO Work Phone: 09-19-2020 11:33-0400 Body temperature 96.8 [degF] Rachel Rayo Work Phone: GJ-Runrgghjkm-Zhvzm [place] 2100 DO Work Phone: 09-19-2020 11:33-0400 Body weight 84.37 kg Rachel Rayo Work Phone: MT-Zmsmbtjwqb-Emctr [place] 2100 DO Work Phone: 09-19-2020 11:33-0400 Diastolic blood pressure 70 mm[Hg] Rachel Rayo Work Phone: VF-Bvmjaaievs-Jpbbf [place] 2100 DO Work Phone: 09-19-2020 11:33-0400 Heart rate 92 /min Rachel Rayo Work Phone: PZ-Qexkbrpiyg-Jubek [place] 2100 DO Work Phone: 09-19-2020 11:33-0400 Respiratory rate 16 /min Rachel Rayo Work Phone: XO-Bbylhsshiz-Ljloo [place] 2100 DO Work Phone: 09-19-2020 11:33-0400 Systolic blood pressure 104 mm[Hg] Rachel Rayo Work Phone: DD-Inqlpoovde-Lniwu [place] 2100 DO Work Phone: 09-08-2020 17:45-0400 Diastolic blood pressure 83 mm[Hg] Jarret Tong MD Work Phone: [facility] Work Phone: 09-08-2020 17:45-0400 Heart rate 86 /min Jarret Tong MD Work Phone: [facility] Work Phone: 09-08-2020 17:45-0400 Respiratory rate 18 /min Jarret Tong MD Work Phone: [facility] Work Phone: 09-08-2020 17:45-0400 SaO2% (BldA) [Mass fraction] 100 % Jarret Tong MD Work Phone: [facility] Work Phone: 09-08-2020 17:45-0400 Systolic blood pressure 132 mm[Hg] Jarret Tong MD Work Phone: [facility] Work Phone: 09-08-2020 12:03-0400 Body height 177.8 cm [facility] Work [facility] 09-08-2020 12:03-0400 Body mass index (BMI) [Ratio] 25.83 kg/m2 Jarret Tong MD Work Phone: [facility] Work Phone: 09-08-2020 12:03-0400 Body weight 81.65 kg Jarret Tong MD [facility] Work [facility]: 09-08-2020 11:58-0400 Body temperature 96.3 [degF] Jarret Tong MD [facility] Work Phone: 09-05-2020 15:13-0400 Body temperature 95.5 [degF] Courtney Brown [facility] [place] [facility] DO Work Phone: Comment on above: Method: Temporal 09-05-2020 15:13-0400 Diastolic blood pressure 60 mm[Hg] Courtney Brown MD RB-Glwvkjvxi-Kglefp 170 DO Work Phone: Comment on above: Location: [facility]; Position: Sitting 09-05-2020 15:13-0400 Heart rate 80 /min Courtney Brown MD LV-Fqytyjukp-J sanjiv 170 DO Work Phone: Comment on above: Location: [facility]; Quality: Regular 09-05-2020 15:13-0400 Respiratory rate 16 /min Courtney Brown [facility] [place] [facility] DO Work Phone: Comment on above: Quality: Normal 09-05-2020 15:13-0400 Systolic blood pressure 96 mm[Hg] Courtney Brown MD WO-Zaznvqgdy-Dxpgnf 170 DO Work Phone: Comment on above: Location: [facility]; Position: Sitting 09-05-2020 13:13-0400 Body temperature 95.5 [degF] Rachel Rayo Work Phone: PN-Goxwwyboks-Ayuoc [place] 2100 DO Work Phone: 09-05-2020 13:13-0400 Diastolic blood pressure 60 mm[Hg] Rachel E Rayo Work Phone: GB-Udzudbcqwk-Cgksi [place] 2100 DO Work Phone: 09-05-2020 13:13-0400 Heart rate 80 /min Rachel English Rayo Work Phone: JG-Vuxfwejcmi-Bvjkm [place] 2100 DO Work Phone: 09-05-2020 13:13-0400 Respiratory rate 16 /min Rachel E Rayo Work Phone: WS-Lowrfnbjgh-Himrz [place] 2100 DO Work Phone: 09-05-2020 13:13-0400 Systolic blood pressure 96 mm[Hg] Rachel English Rayo Work Phone: LQ-Icsuemfcqj-Zvrqb [place] 2100 DO Work Phone: 09-03-2020 17:08-0400 Body mass index (BMI) [Ratio] 27.32 kg/m2 Courtney Brown MD KI-Ljhfbkrrv-Lbaeuf 170 DO Work Phone: 09-03-2020 17:08-0400 Body surface area Derived from formula 2 m2 Courtney Brown MD XU-Bzfgwrjwm-Aqommo 170 DO Work Phone: 09-03-2020 17:08-0400 Body weight 83.91 kg Courtney Brown MD SI-Suodzxdfp-G sanjiv 170 DO Work Phone: 09-03-2020 17:08-0400 Diastolic blood pressure 63 mm[Hg] Courtney Brown MD YQ-Abpztryvm-Tnalek 170 DO Work Phone: 09-03-2020 17:08-0400 Systolic blood pressure 130 mm[Hg] Courtney Brown MD DK-Gropcjxex-Bhiwmu 170 DO Work Phone: 09-03-2020 15:08-0400 Body mass index (BMI) [Ratio] 27.32 kg/m2 Rachel Rayo Work Phone: YX-Zxitipfuey-Kydrf [place] 2100 DO Work Phone: 09-03-2020 15:08-0400 Body surface area Derived from formula 2 m2 Rachel Rayo Work Phone: MX-Zdrylnimuk-Zjwjr [place] 2100 DO Work Phone: 09-03-2020 15:08-0400 Body weight 83.91 kg Rachel Rayo Work Phone: YO-Edogfprune-Xnqzh [place] 2100 DO Work Phone: 09-03-2020 15:08-0400 Diastolic blood pressure 63 mm[Hg] Rachel English Rayo Work Phone: VZ-Dunhvkdhkr-Tzpck [place] 2100 DO Work Phone: 09-03-2020 15:08-0400 Systolic blood pressure 130 mm[Hg] Rachel English Rayo Work Phone: SS-Bwuqhzbikb-Pfsto [place] 2100 DO Work Phone: 08-30-2020 16:51-0400 Body temperature 96.9 [degF] Courtney Brown MD, [facility] [place] 170 DO Work Phone: Comment on above: Method: Temporal 08-30-2020 16:51-0400 Diastolic blood pressure 84 mm[Hg] Courtney Brown MD, [facility] 170 DO Work Phone: Comment on above: Location: [facility]; Position: Sitting 08-30-2020 16:51-0400 Heart rate 80 /min Courtney Brown MD, MP-Neurology-M sanjiv 170 DO Work Phone: Comment on above: Location: [facility]; Quality: Regular 08-30-2020 16:51-0400 Respiratory rate 16 /min Courtney Brown MD, [facility] [place] 170 DO Work Phone: Comment on above: Quality: Normal 08-30-2020 16:51-0400 Systolic blood pressure 124 mm[Hg] Courtney Brown MD OT-Qlzkiwuat-Xiolws 170 DO Work Phone: Comment on above: [place] [facility] [place] 08-30-2020 14:51-0400 Body temperature 96.9 [degF] Rachel Amador Rayo Work Phone: VS-Hvpvfhlrgt-Nyzph [place] 2100 DO Work Phone: 08-30-2020 14:51-0400 Diastolic blood pressure 84 mm[Hg] Rachel Rayo Work Phone: IX-Jpsnqvcwqr-Bixss [place] 2100 DO Work Phone: 08-30-2020 14:51-0400 Heart rate 80 /min Rachel Amador Rayo Work Phone: WU-Gwzjyljfin-Gsiqd [place] 2100 DO Work Phone: 08-30-2020 14:51-0400 Respiratory rate 16 /min Rachel Amador Rayo Work Phone: HQ-Fixngwsqgo-Vykil [place] 2100 DO Work Phone: 08-30-2020 14:51-0400 Systolic blood pressure 124 mm[Hg] Rachel Amador Rayo Work Phone: CS-Hcczxzwsqq-Ebbon [place] 2100 DO Work Phone: 08-29-2020 14:01-0400 Body height 175.26 cm Courtney Brown MD, MP-Neurology-[facility] 170 DO Work Phone: 08-29-2020 14:01-0400 Body mass index (BMI) [Ratio] 30.72 kg/m2 Courtney Brown MD QW-Fgmvgbsjp-Ejbwqh 170 DO Work Phone: 08-29-2020 14:01-0400 Body surface area Derived from formula 2.1 m2 Courtney Brown MD OP-Ktokeymnr-Jamrvv 170 DO Work Phone: 08-29-2020 14:01-0400 Body weight 94.35 kg Courtney Brown MD, MP-Neurology-M sanjiv 170 DO Work Phone: 08-29-2020 12:01-0400 Body height 175.26 cm Rachel Rayo Work Phone: HZ-Hrgzduuhqo-Gyhyj [place] 2100 DO Work Phone: 08-29-2020 12:01-0400 Body mass index (BMI) [Ratio] 30.72 kg/m2 Rachel Rayo Work Phone: KK-Nbazivvzwl-Xcpow [place] 2100 DO Work Phone: 08-29-2020 12:01-0400 Body surface area Derived from formula 2.1 m2 Rachel Rayo Work Phone: WD-Zfxeugjdtw-Kljke [place] 2100 DO Work Phone: 08-29-2020 12:01-0400 Body weight 94.35 kg Rachel Rayo Work Phone: WI-Mtagiqdita-Wjqjc [place] 2100 DO Work Phone: 08-25-2020 15:09-0400 Respiratory rate 18 /min REYNA Rader MD Work Phone: [facility] Work Phone: 08-25-2020 14:47-0400 Diastolic blood pressure 72 mm[Hg] REYNA Rader MD Work Phone: [facility] Work Phone: 08-25-2020 14:47-0400 Heart rate 95 /min REYNA Rader MD Work Phone: [facility] Work Phone: 08-25-2020 14:47-0400 SaO2% (BldA) [Mass fraction] 99 % REYNA Rader MD Work Phone: [facility] Work Phone: 08-25-2020 14:47-0400 Systolic blood pressure 101 mm[Hg] REYNA Rader MD Work Phone: [facility] Work Phone: 08-25-2020 13:27-0400 Body height 177.8 cm REYNA Rader MD Work Phone: [facility] Work Phone: 08-25-2020 13:27-0400 Body mass index (BMI) [Ratio] 25.83 kg/m2 REYNA Rader MD Work Phone: [facility] Work Phone: 08-25-2020 13:27-0400 Body weight 81.65 kg REYNA Rader MD Work Phone: [facility] Work Phone: 08-25-2020 13:26-0400 Body temperature 97 [degF] REYNA Rader MD Work Phone: [facility] Work Phone: 05-08-2020 14:14-0500 BMI (Body Mass Index) 31.75 kg/m2 Courtney Brown MPCE-Bxzzmzugvc-Xauof [place] 2100 DO Work Phone: 05-08-2020 14:14-0500 Body weight 97.52 kg Courtney Brown MP-Allergists-[facility] [place] 2100 DO Work Phone: 05-08-2020 14:14-0500 BP Diastolic 78 mm[Hg] Courtney Brown MP-Allergists-[facility] [place] 2100 DO Work Phone: 05-08-2020 14:14-0500 BP Systolic 120 mm[Hg] Courtney Brown MP-Allergists-[facility] [place] 2100 DO Work Phone: 05-08-2020 14:14-0500 BSA (Body Surface Area) 2.13 m2 Courtney Brown MPSZ-Cnhbwidmxz-Gxuwt [place] 2100 DO Work Phone: 05-08-2020 14:14-0500 Height 175.26 cm Courtney Brown MP-Allergists-[facility] [place] 2100 DO Work Phone: 02-14-2020 14:37-0400 BMI (Body Mass Index) 32.93 kg/m2 Courtney Brown MPAM-Szwwfzxcot-Sdmnu [place] Work Phone: 02-14-2020 14:37-0400 Body weight 101.15 kg Courtney Brown MP-Allergists-[facility] [place] Work Phone: 02-14-2020 14:37-0400 BSA (Body Surface Area) 2.16 m2 Courtney Brown MPTF-Xxpehtflie-Hmbes [place] Work Phone: 02-14-2020 14:37-0400 Height 175.26 cm Courtney Brown MP-[facility]erg[facility] [place] Work Phone: 02-14-2020 14:37-0400 Pulse (Heart Rate) 104 /min Courtney Brown MP-Allergists -[place] Work Phone: 02-14-2020 14:37-0400 Pulse Oximetry 97 % Courtney Brown MP-Allergists-[facility] [place] Work Phone: 11-23-2019 16:03-0400 BMI (Body Mass Index) 32.49 kg/m2 Courtney Brown MPYW-Qlxmzbehs-Jwlimf 170 DO Work Phone: 11-23-2019 16:03-0400 Body weight 99.79 kg Courtney Brown MP-Neurology-Med jono 170 DO Work Phone: 11-23-2019 16:03-0400 BSA (Body Surface Area) 2.15 m2 Courtney Brown NS-Wdvchbryp-Vkpbfg 170 DO Work Phone: 11-23-2019 16:03-0400 Height 175.26 cm Courtney Brown MP-Neurology-Med jono 170 DO Work Phone: 11-15-2019 18:30-0400 BMI (Body Mass Index) 32.49 kg/m2 Courtney Brown MPOL-Wikhfrdsz-Jljwgk 170 DO Work Phone: 11-15-2019 18:30-0400 Body weight 99.79 kg Courtney Brown XM-Nayrvmnvq-Fqe jono 170 DO Work Phone: 11-15-2019 18:30-0400 BP Diastolic 78 mm[Hg] Courtney Brown ZQ-Mywpbfjcz-Vej jono 170 DO Work Phone: 11-15-2019 18:30-0400 BP Systolic 124 mm[Hg] Courtney Brown RU-Vqlncyjws-Qbp jono 170 DO Work Phone: 11-15-2019 18:30-0400 BSA (Body Surface Area) 2.15 m2 Courtney Brown HS-Kwgxuxzrq-Diykjg 170 DO Work Phone: 11-15-2019 18:30-0400 Height 175.26 cm Courtney Brown ZL-Apnihtfwc-Jvw jono 170 DO Work Phone: 11-07-2019 16:34-0400 BMI (Body Mass Index) 32.49 kg/m2 Courtney Brown YU-Skoucoqmj-Vsuixv 170 DO Work Phone: 11-07-2019 16:34-0400 Body Temperature 97.6 [degF] Courtney Brown PS-Iavvvhnmg-Kz bo 170 DO Work Phone: Comment on above: Method: Tympanic 11-07-2019 16:34-0400 Body weight 99.79 kg Courtney Brown AJ-Gawyesicc-Cqa jono 170 DO Work Phone: 11-07-2019 16:34-0400 BP Diastolic 70 mm[Hg] Courtney Brown FF-Fxdycxtxz-Tfm jono 170 DO Work Phone: Comment on above: Location: [facility]; Position: Sitting 11-07-2019 16:34-0400 BP Systolic 110 mm[Hg] Courtney Brown GX-Pqxcsjqqc-Xgr jono 170 DO Work Phone: Comment on above: Location: [facility]; Position: Sitting 11-07-2019 16:34-0400 BSA (Body Surface Area) 2.15 m2 Courtney Brown ZT-Cvuglnisq-Zaqghb 170 DO Work Phone: 11-07-2019 16:34-0400 Height 175.26 cm Courtney Borwn TE-Lshnggedg-Cyz jono 170 DO Work Phone: 11-07-2019 16:34-0400 Pulse (Heart Rate) 76 /min Courtney Brown MP-Neurology- [place] 170 DO Work Phone: Comment on above: Location: [facility]; Quality: Regular 11-07-2019 16:34-0400 Respiratory Rate 20 /min Courtney Brown NE-Uvmlwylko-Lc bo 170 DO Work Phone: Comment on above: Quality: Normal 04-01-2019 14:18-0500 BP Diastolic 87 mm[Hg] [facility] , [place] 04-01-2019 14:18-0500 BP Systolic 122 mm[Hg] [place], [place] 04-01-2019 14:18-0500 Pulse (Heart Rate) 90 /min [facility], [place] 04-01-2019 14:18-0500 Pulse Oximetry 93 % [place], [place] 04-01-2019 14:18-0500 Respiratory Rate 16 /min [facility], [place] 04-01-2019 13:19-0500 Body Temperature 98.1 [degF] [place], [place] 04-01-2019 12:08-0500 BMI (Body Mass Index) 31.28 kg/m2 [facility], [place] 04-01-2019 12:08-0500 Body weight 98.88 kg [facility] , [place] 04-01-2019 12:08-0500 Height 177.8 cm [place], [place] 12-26-2018 16:15-0400 BP Diastolic 85 mm[Hg] [facility] , [place] 12-26-2018 16:15-0400 BP Systolic 117 mm[Hg] [facility] , [place] 12-26-2018 16:15-0400 Pulse (Heart Rate) 82 /min Oni Gr [facility], [place] 12-26-2018 16:00-0400 Pulse [facility]xim[facility] 98 % [facility] [place] 12-26-2018 12:34-0400 Body Temperature 97.9 [degF] Oni Gr [facility], [place] 12-26-2018 12:34-0400 Respiratory Rate 18 /min [facility] [place] 08-18-2018 16:34-0400 BP Diastolic 80 mm[Hg] Courtney Brown [facility] Work Phone: Comment on above: Location: LUE; Position: Sitting 08-18-2018 16:34-0400 BP Systolic 126 mm[Hg] Courtney Brown [facility] Work Phone: Comment on above: Location: LUE; Position: Sitting 08-18-2018 16:34-0400 Pulse (Heart Rate) 88 /min Courtney Brown [facility] Work Phone: Comment on above: Location: L Radial; Quality: Regular 08-18-2018 16:34-0400 Respiratory Rate 20 /min Courtney Brown [facility] Work Phone: Comment on above: Quality: Normal 08-18-2018 11:50-0400 BMI (Body Mass Index) 29.54 kg/m2 Courtney Brown [facility] Work Phone: 08-18-2018 11:50-0400 Body weight 90.72 kg Courtney Brown [facility] Work Phone: 08-18-2018 11:50-0400 BSA (Body Surface Area) 2.07 m2 Courtney Brown [facility]PG[facility] Work Phone: 08-18-2018 11:50-0400 Height 175.26 cm Courtney Brown [facility] Work Phone: Encounters Encounter Date Encounter Type Care Provider Facility Start: 10-06-2024 ambulatory PA-C JESSICA PAYTON F acility:[facility] Start: 09-20-2024 End: 09-20-2024 ambulatory JESSICA PARKERRY Facility:[facility] Start: 09-20-2024 End: 09-20-2024 Patient encounter procedure JESSICA Amador PAYTON [facility] Start: 09-14-2024 End: 09-14-2024 Lab Drop off JESSICA Amador PAYTON [facility] Start: 09-14-2024 End: 09-14-2024 ambulatory JESSICA PAYTON Facility:[facility] Start: 09-14-2024 End: 09-14-2024 Patient encounter procedure [facility]RIAN [facility] Start: 09-13-2024 End: 09-13-2024 External Result Encounter Melissa Wilson ABSTRACTER Work Phone: [facility] External Department Unsolicited Start: 09-13-2024 End: 09-13-2024 External Result Encounter Melissa Wilson ABSTRACTER Work Phone: [facility] External Department Unsolicited Start: 09-13-2024 End: 09-13-2024 ambulatory COURTNEY [facility] Start: 09-13-2024 End: 09-13-2024 Office outpatient visit 25 minutes Courtney Brown MD Work Phone: [facility] Comment on above: Hypokalemia (Primary Dx); Asthma with chronic obstructive pulmonary disease (COPD) (Multi) Start: 09-13-2024 ambulatory Rachel Rayo Facility :[facility] Start: 09-12-2024 End: 09-12-2024 ambulatory [facility] Ambulatory Start: 09-12-2024 End: 09-12-2024 Office outpatient visit 25 minutes Jessica Moore DELIVERY PROFESSIONAL-METALLOGRAPHIC TECHNICIAN Work Phone: [facility] Comment on above: Chronic migraine wit hout aura without status migrainosus, not intractable (Primary Dx); Intractable chronic 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) Start: 08-10-2024 End: 08-10-2024 ambulatory JODIE E BYRON [facility] Ambulatory Start: 08-10-2024 End: 08-10-2024 Patient encounter procedure Jodie Matthews MD Work Phone: [facility] Comment on above: Intractable chronic migraine without aura and with status migrainosus Start: 07-25-2024 End: 07-25-2024 Office outpatient visit 25 minutes Rich Magana MD MPH Work Phone: [facility] Mitch Morgan Comment on above: ILD (interstitial anel ng disease) (Multi) (Primary Dx) Start: 07-25-2024 End: 07-25-2024 ambulatory RICH MAGANA [facility] Start: 07-07-2024 End: 07-07-2024 ambulatory Rachel Rayo MD Work Phone: [facility] Work Phone: Start: 07-07-2024 End: 07-07-2024 Patient encounter procedure Rachel Rayo MD Work Phone: [facility] Work Phone: Start: 07-07-2024 End: 07-07-2024 ambulatory Rachel Rayo MD Work Phone: [facility] Work Phone: Start: 07-07-2024 End: 07-07-2024 Encounter for general adult medical examination without abnormal findings Rachel Rayo MD Work Phone: [facility] Start: 07-07-2024 End: 07-07-2024 Patient encounter procedure Rachel Rayo MD Work Phone: [facility] Work Phone: Start: 07-06-2024 End: 07-06-2024 Office outpatient visit 10 minutes [facility] DELIVERY PROFESSIONAL-METALLOGRAPHIC TECHNICIAN Work Phone: [facility] Comment on above: Chronic migraine wit hout aura without status migrainosus, not intractable (Primary Dx) Start: 07-06-2024 End: 07-06-2024 ambulatory [facility] Ambulatory Start: 07-06-2024 End: 07-06-2024 ambulatory RACHEL RAYO Facility:[facility] Start: 07-06-2024 End: 07-06-2024 Patient encounter procedure Issa Gonzales [facility] Start: 07-01-2024 Non-patient / Non-visit Rachel Rayo MD Work Phone: [facility] Work Phone: Start: 06-14-2024 End: 06-14-2024 Office outpatient visit 25 minutes Courtney Brown MD Work Phone: [facility] Comment on above: Asthma with chronic obstructive pulmonary disease (COPD) (Multi) (Primary Dx); Anti-pneumococcal polysaccharide antibody deficiency (Multi) Start: 06-14-2024 End: 06-14-2024 ambulatory COURTNEY [facility] Amb[facility] Start: 06-09-2024 End: 06-09-2024 ambulatory Issa Gonzales Facility:[facility] Start: 06-09-2024 End: 06-09-2024 Pain Management Issa Gonzales [facility] Start: 06-02-2024 End: 06-02-2024 ambulatory [facility] Ambulatory Start: 06-02-2024 End: 06-02-2024 Office outpatient visit 40 minutes [facility] DELIVERY PROFESSIONAL-METALLOGRAPHIC TECHNICIAN Work Phone: [facility] Comment on above: Chronic migraine wit hout aura without status migrainosus, not intractable (Primary Dx); Chronic migraine without aura, intractable, with status migrainosus Start: 05-31-2024 Registered Recurring Rachel schaeffer MD Work Phone: [facility] Work Phone: Start: 05-31-2024 End: 05-31-2024 ambulatory Rachel Rayo MD Work Phone: [facility] Work Phone: Start: 05-31-2024 End: 05-31-2024 Patient encounter procedure Rachel Rayo MD Work Phone: [facility] Work Phone: Start: 05-31-2024 End: 05-31-2024 ambulatory Rachel Rayo MD Work Phone: [facility] Work Phone: Start: 05-31-2024 End: 05-31-2024 Patient encounter procedure Rachel Rayo MD Work Phone: [facility] Work Phone: Start: 05-27-2024 End: 05-27-2024 External Result Encounter Melissa Wilson ABSTRACTER Work Phone: [facility] External Department Unsolicited Start: 05-27-2024 End: 05-27-2024 External Result Encounter Melissa Wilson ABSTRACTER Work Phone: [facility] External Department Unsolicited Start: 05-27-2024 Registered Recurring Rachel schaeffer MD Work Phone: [facility] Work Phone: Start: 05-11-2024 End: 05-11-2024 ambulatory JODIE MATTHEWS [facility] Ambulatory Start: 05-11-2024 End: 05-11-2024 Patient encounter procedure Jodie Matthews MD Work Phone: [facility] Comment on above: Intractable chronic migraine without aura and with status migrainosus Start: 05-09-2024 End: 05-09-2024 ambulatory RACHEL RAYO Facility:[facility] Start: 05-09-2024 End: 05-09-2024 Patient encounter procedure Issa Gonzales [facility] Start: 05-03-2024 End: 05-03-2024 Patient encounter procedure Rachel Rayo MD Work Phone: [facility] Work Phone: Start: 04-13-2024 End: 04-13-2024 Office outpatient visit 25 minutes Rich Magana MD MPH Work Phone: [facility] Comment on above: Asthma with chronic obstructive pulmonary disease (COPD) (Multi) (Primary Dx) Start: 04-13-2024 End: 04-13-2024 ambulatory RICH MAGANA [facility] Start: 04-07-2024 End: 04-07-2024 Office outpatient visit 25 minutes Jessica Moore DELIVERY PROFESSIONAL-METALLOGRAPHIC TECHNICIAN Work Phone: [facility] Comment on above: Chronic migraine wit hout aura without status migrainosus, not intractable (Primary Dx); Current 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, unspecified whether recurrent (Multi) Start: 04-07-2024 End: 04-07-2024 ambulatory [facility] Ambulatory Start: 03-08-2024 End: 03-08-2024 Subsequent hospital visit by physician Shimon [id number] Ct [address] [facility] Comment on above: ILD (interstitial anel ng disease) (Multi) Start: 03-08-2024 End: 03-08-2024 ambulatory RICH Rowan [facility] Start: 03-08-2024 End: 03-08-2024 Office outpatient visit 40 minutes Courtney Brown MD Work Phone: [facility] Comment on above: Asthma with chronic obstructive pulmonary disease (COPD) (Multi) (Primary Dx); Anti-pneumococcal polysaccharide antibody deficiency (Multi) Start: 03-08-2024 End: 03-08-2024 ambulatory [facility] Ambulatory Start: 03-03-2024 End: 03-03-2024 External Result Encounter Melissa Wilson NP Work Phone: [facility] External Department Unsolicited Start: 03-03-2024 End: 03-03-2024 External Result Encounter Melissa Wilson ABSTRACTER Work Phone: [facility] External Department Unsolicited Start: 02-16-2024 End: 02-16-2024 Office outpatient visit 40 minutes Courtney Brown MD Work Phone: [facility] Comment on above: Asthma with chronic obstructive pulmonary disease (COPD) (Multi) (Primary Dx); GERD without esophagitis; Anti-pneumococcal polysaccharide antibody deficiency (Multi) Start: 02-16-2024 End: 02-16-2024 ambulatory [facility] Amb[facility] Start: 02-10-2024 End: 02-10-2024 ambulatory MD Rachel Rayo Work Phone: [facility] Work Phone: Start: 02-10-2024 End: 02-10-2024 Patient encounter procedure MD Rachel Rayo Work Phone: [facility] Work Phone: Start: 02-04-2024 Non-patient / Non-visit MD Kelly Rayo Work Phone: [facility] Work Phone: Start: 02-04-2024 End: 02-04-2024 ambulatory MD Rachel Rayo Work Phone: [facility] Work Phone: Start: 02-04-2024 End: 02-04-2024 Patient encounter procedure MD Rachel Rayo Work Phone: [facility] Work Phone: Start: 02-03-2024 End: 02-03-2024 ambulatory MD Rachel Rayo Work Phone: [facility] Work Phone: Start: 02-03-2024 End: 02-03-2024 Patient encounter procedure MD Rachel Rayo Work Phone: [facility] Work Phone: Start: 01-18-2024 End: 01-18-2024 ambulatory RACHEL RAYO Facility:[facility] Start: 01-18-2024 End: 01-18-2024 Patient encounter procedure Issa Gonzales [facility] Start: 01-11-2024 End: 01-11-2024 Patient encounter procedure Jodie Matthews MD Work Phone: [facility] Comment on above: Intractable chronic migraine without aura and with status migrainosus (Primary Dx); Chronic migraine without aura, intractable, with status migrainosus Start: 01-11-2024 End: 01-11-2024 ambulatory JODIE MATTHEWS [facility] Ambulatory Start: 12-29-2023 End: 12-29-2023 ambulatory Issa Gonzales Facility:[facility] Start: 12-29-2023 End: 12-29-2023 Pain Management Issa Gonzales [facility] Start: 12-10-2023 Non-patient / Non-visit MD Kelly Rayo Work Phone: [facility] Work Phone: Start: 12-07-2023 End: 12-07-2023 ambulatory [facility] Ambulatory Start: 12-07-2023 End: 12-07-2023 ambulatory RICH [facility] Start: 12-04-2023 End: 12-04-2023 ambulatory Barbara Duron Facility:[facility] Start: 12-04-2023 End: 12-04-2023 Patient encounter procedure Barbara Duron [facility] Start: 12-04-2023 End: 12-04-2023 ambulatory RACHEL RAYO Facility:[facility] Start: 12-04-2023 End: 12-04-2023 Pain Management [facility] Start: 12-02-2023 End: 12-02-2023 ambulatory MD Rachel Rayo Work Phone: [facility] Work Phone: Start: 12-02-2023 End: 12-02-2023 Patient encounter procedure MD Rachel Rayo Work Phone: [facility] Work Phone: Start: 12-02-2023 Registered Recurring MD Rachel Rayo [facility] [place] [facility] Work Phone: Start: 11-30-2023 End: 11-30-2023 ambulatory COURTNEY [facility] Ambulatory Start: 11-24-2023 Registered Recurring MD Rachel Rayo Work Phone: [facility] Work Phone: Start: 11-24-2023 End: 11-24-2023 Patient encounter procedure MD Rachel Rayo Work Phone: [facility] [place] Work Phone: Start: 11-24-2023 End: 11-24-2023 ambulatory MD Rachel Rayo Work Phone: [facility] Work Phone: Start: 11-24-2023 End: 11-24-2023 ambulatory MD Rachel Rayo Work Phone: [facility] Work Phone: Start: 11-24-2023 End: 11-24-2023 Patient encounter procedure MD Rachel Rayo Work Phone: [facility] Work Phone: Start: 11-24-2023 End: 11-24-2023 Patient encounter procedure MD Rachel Rayo Work Phone: [facility] Start: 11-24-2023 End: 11-24-2023 ambulatory MD Rachel Rayo Work Phone: [facility] Work Phone: Start: 11-12-2023 Non-patient / Non-visit MD Kelly Rayo Work Phone: [facility] Work Phone: Start: 11-10-2023 End: 11-10-2023 ambulatory MD Rachel Rayo Work Phone: [facility] Work Phone: Start: 11-10-2023 End: 11-10-2023 Patient encounter procedure MD Rachel Rayo Work Phone: [facility] Work Phone: Start: 10-31-2023 Non-patient / Non-visit MD Kelly Rayo Work Phone: [facility] Work Phone: Start: 10-30-2023 Non-patient / Non-visit MD Kelly Rayo Work Phone: [facility] Work Phone: Start: 10-26-2023 End: 10-26-2023 ambulatory MD Rachel Rayo Work Phone: [facility] Work Phone: Start: 10-26-2023 End: 10-26-2023 Patient encounter procedure MD Rachel Rayo Work Phone: [facility] Work Phone: Start: 10-16-2023 End: 10-17-2023 Emergency department patient visit MD Rachel Rayo Work Phone: [facility] Work Phone: Start: 10-12-2023 End: 10-12-2023 Patient encounter procedure Jodie Matthews MD Work Phone: [facility] Comment on above: Intractable chronic migraine without aura and with status migrainosus Start: 10-12-2023 End: 10-12-2023 ambulatory [facility] Start: 10-08-2023 End: 10-08-2023 Office outpatient new 30 minutes [place] Matt Hilton Work Phone: [facility] Comment on above: Post concussion synd kayleen Start: 10-08-2023 End: 10-08-2023 ambulatory [facility] Ambulatory Start: 09-15-2023 End: 09-15-2023 Patient encounter procedure MD Rachel Rayo Work Phone: [facility] Work Phone: Start: 09-14-2023 Non-patient / Non-visit MD Kelly Rayo Work Phone: [facility] Work Phone: Start: 09-04-2023 End: 09-04-2023 ambulatory MD Rachel Rayo Work Phone: [facility] Work Phone: Start: 09-04-2023 End: 09-04-2023 Patient encounter procedure MD Rachel Rayo Work Phone: [facility] Work Phone: Start: 09-04-2023 Registered Recurring MD Rachel Rayo Work Phone: [facility] Work Phone: Start: 09-01-2023 End: 09-01-2023 Patient encounter procedure JESSICA PAYTON [facility] Start: 08-28-2023 End: 08-28-2023 ambulatory MD Rachel Rayo Work Phone: [facility] Work Phone: Start: 08-28-2023 End: 08-28-2023 Patient encounter procedure MD Rachel Rayo Work Phone: [facility] Work Phone: Start: 08-20-2023 Non-patient / Non-visit MD Kelly Rayo Work Phone: [facility] Work Phone: Start: 08-18-2023 End: 08-18-2023 ambulatory MD Rachel Rayo Work Phone: [facility] Work Phone: Start: 08-18-2023 End: 08-18-2023 Patient encounter procedure MD Rachel Rayo Work Phone: [facility] Work Phone: Start: 08-04-2023 End: 08-04-2023 Patient encounter procedure JESSICA PAYTON [facility] Start: 07-28-2023 End: 07-28-2023 ambulatory MD Rachel Rayo Work Phone: [facility] Work Phone: Start: 07-28-2023 End: 07-28-2023 Patient encounter procedure MD Rachel Rayo Work Phone: [facility] Work Phone: Start: 07-22-2023 End: 07-22-2023 ambulatory MD Rachel Rayo Work Phone: [facility] Work Phone: Start: 07-22-2023 End: 07-22-2023 Patient encounter procedure MD Rachel Rayo Work Phone: [facility] Work Phone: Start: 07-22-2023 End: 07-22-2023 ambulatory MD Rachel Rayo Work Phone: [facility] Work Phone: Start: 07-22-2023 End: 07-22-2023 Patient encounter procedure MD Rachel Rayo Work Phone: [facility] Start: 07-15-2023 End: 07-15-2023 Patient encounter procedure Jodie Matthews MD Work Phone: [facility] Comment on above: Intractable chronic migraine without aura and with status migrainosus (Primary Dx); Chronic migraine without aura without status migrainosus, not intractable Start: 07-08-2023 End: 07-08-2023 Pain Management Barbara Duron [facility] Start: 07-02-2023 Patient encounter status MD Frank Rayo Work Phone: [facility] Start: 07-02-2023 End: 07-02-2023 Encounter for general adult medical examination without abnormal findings MD Rachel Rayo Work Phone: [facility] Start: 07-02-2023 End: 07-02-2023 Patient encounter procedure MD Rachel Rayo Work Phone: [facility] Work Phone: Start: 06-22-2023 End: 06-22-2023 Office outpatient visit 25 minutes Rich Magana MD MPH Work Phone: [facility] Comment on above: Asthma, severe persi stent, poorly-controlled, with acute exacerbation (Primary Dx) Chronic migraine wit hout aura without status migrainosus, not intractable; Chronic migraine without aura, intractable, with status migrainosus Start: 06-05-2023 End: 06-05-2023 Patient encounter procedure Barbara Duron [facility] Start: 06-02-2023 End: 06-02-2023 ambulatory MD Rachel Rayo Work Phone: [facility] Work Phone: Start: 06-02-2023 End: 06-02-2023 Patient encounter procedure MD Rachel Rayo Work Phone: [facility] Work Phone: Start: 06-02-2023 Registered Recurring MD Rachel Rayo Work Phone: [facility] Work Phone: Start: 04-15-2023 End: 04-15-2023 Patient encounter procedure Jodie Matthews MD Work Phone: [facility] Comment on above: Chronic migraine wit hout aura, with intractable migraine, so stated, with status migrainosus (Primary Dx); Intractable chronic migraine without aura and with status migrainosus Start: 04-08-2023 End: 04-08-2023 Pain Management Barbara Duron [facility] Start: 04-08-2023 End: 04-08-2023 Office outpatient visit 25 minutes Courtney Brown MD Work Phone: [facility] Comment on above: Anti-pneumococcal po lysaccharide antibody deficiency (CMS/HCC) (Primary Dx); Asthma with chronic obstructive pulmonary disease (COPD); Fatigue, unspecified type; Vitamin D deficiency, unspecified Start: 04-06-2023 End: 04-06-2023 ambulatory Rachel Rayo Other [employer] Other Start: 04-06-2023 Telephone encounter Rachel Rayo [facility] Start: 04-03-2023 End: 04-03-2023 ambulatory Sally Brave II Other [employer] Other Start: 04-03-2023 Office outpatient vi sit 15 minutes Sally Brave II [facility] Start: 04-03-2023 End: 04-03-2023 Patient encounter procedure MD Rachel Rayo Work Phone: [facility] Work Phone: Start: 03-24-2023 End: 03-24-2023 Patient encounter procedure Jodie Matthews MD Work Phone: [facility] Comment on above: Memory loss; Intractable chronic migraine without aura and with status migrainosus Start: 02-19-2023 End: 02-19-2023 ambulatory Sally Brave II Other [employer] Other Start: 02-19-2023 Office outpatient vi sit 25 minutes Sally Brave II [facility] Start: 02-18-2023 End: 02-18-2023 ambulatory MD Rachel Rayo Work Phone: [facility] Work Phone: Start: 02-18-2023 End: 02-18-2023 Registered Recurring MD Rachel Rayo Work Phone: [facility] Work Phone: Start: 02-11-2023 Telephone encounter Rachel Rayo [facility] Start: 02-11-2023 End: 02-11-2023 Subsequent hospital visit by physician Amber Chin Echo/Vasc Room 2 [facility] Comment on above: Interstitial pulmona ry disease, unspecified (CMS/HCC); Shortness of breath Start: 02-11-2023 End: 02-11-2023 ambulatory RICH MAGANA [employer] Other Start: 02-05-2023 End: 02-05-2023 ambulatory Rachel Rayo Other [employer] Other Start: 02-05-2023 Telephone encounter Rachel Rayo [facility] Start: 01-30-2023 Chart Update Rachel Rayo Work Phone: [address] Work Phone: Start: 01-29-2023 End: 01-29-2023 ambulatory Rachel Rayo Other [employer] Other Start: 01-29-2023 Office outpatient vi sit 15 minutes Rachel Rayo [facility] Start: 01-27-[address] Rachel Rayo Facility:[facility] Start: 01-27-2023 Office outpatient vi sit 25 minutes Rachel Rayo Work Phone: [facility] Work Phone: Start: 01-20-[address] Jodie meneses [place] Facility:[id number] Start: 01-20-2023 Patient encounter procedure Rachel Rayo Work Phone: [id number] DO Work Phone: Start: 2023 End: 2023 Patient encounter procedure Barbara Duron [facility] Start: 2023 End: 2023 Pain Management Barbara Duron [facility] Start: 01-08-2023 End: 01-08-2023 ambulatory Rachel Rayo Other [facility] [employer] Other Start: 01-08-2023 Nursing evaluation o f patient and report Rachel Rayo [facility] Start: 01-01-2023 AUDIT Rachel Rayo Work Phone: JM-Swshewntpm-Ehnfmf Work Phone: Start: 12-30-2022 Patient encounter procedure Rachel Rayo Work Phone: HN-Vcdjynbee-Cjhqxb 170 DO Work Phone: Start: 12-30-[address] Jodie Matthews Facility:[id number] Start: 12-24-2022 End: 12-24-2022 Pain Management Wei Umana [facility] Start: 11-28-2022 Rx Renewal Rachel Rayo Work Phone: GQ-Cndghsgqf-Rrvder 170 DO Work Phone: Start: 11-27-2022 End: 11-27-2022 Pain Management Wei Lyndsay [facility] Start: 11-18-[address] Mari Barahona ity:[id number] Start: 11-12-2022 Patient encounter procedure Rachel Rayo Work Phone: MP-Pulmonary Medicine-[place] [address] [place] Work Phone: Start: 11-12-[address] Rachel Rayo Facility:[facility] Start: 11-11-2022 End: 11-11-2022 Lab Drop off JESSICA PAYTON [facility] Start: 11-11-2022 Nursing evaluation o f patient and report Rachel Rayo [facility] Start: 11-11-2022 End: 11-11-2022 Patient encounter procedure JESSICA PAYTON [facility] [place] Start: 11-11-2022 Office outpatient vi sit 25 minutes Rachel Rayo Work Phone: -Pulmonary Medicine-[place] [address] [place] Work Phone: Start: 11-11-2022 End: 11-11-[address] Rachel Rayo [employer] Other Start: 11-10-2022 End: 11-10-2022 ambulatory Jessica Rodriguez Other [employer] Other Start: 11-10-2022 Office outpatient vi sit 15 minutes Jessica Rodriguez [facility] Start: 11-08-2022 AUDIT Rachel Rayo Work Phone: BY-Gtfshfygj-Xdhxfi 170 DO Work Phone: Start: 11-03-[address] Jodie meneses [place] Facility:[id number] Start: 11-03-2022 Office outpatient vi sit 25 minutes Rachel Rayo Work Phone: GX-Nxkptabmls-Ixschor e 2100 DO Work Phone: Start: 10-29-2022 End: 10-29-2022 Pain Management Wei Umana [facility] Start: 10-28-2022 Patient encounter procedure Rachel Rayo Work Phone: DG-Rrtmentua-Fwxiazht Work Phone: Start: 10-28-2022 ambulatory JACLYN QUINTANA [facility] ity:[id number] Start: 10-20-2022 Patient encounter procedure Rachel Rayo Work Phone: VJ-Breatorcx-Ohmusk 170 DO Work Phone: Start: 10-20-[address] Jodie Matthews Facility:[id number] Start: 09-09-[address] Courtney Hurst Facility:[id number] Start: 09-09-2022 FUV, Provider: Courtney Brown, Status: Pen, Time: 12:00 PM Rachel Rayo Work Phone: MP-Pulmonary Medicine-[place] [address] [place] Work Phone: Start: 09-09-2022 Office outpatient vi sit 25 minutes Rachel Rayo Work Phone: AV-Dtotaqvdlo-Acaglrx e 2100 DO Work Phone: Start: 09-09-2022 Patient encounter procedure Rachel Rayo Work Phone: HN-Kvxgvesdwj-Gtxbnq Work Phone: Start: 09-08-2022 Office outpatient vi sit 15 minutes Rachel Rayo Work Phone: -Pulmonary Medicine-[place] [address] [place] Work Phone: Start: 09-08-[address] Rich Magana Facility:[facility] Start: 09-03-[address] Jodie Matthews Facility:[id number] Start: 08-29-2022 Patient encounter procedure Rachel Rayo Work Phone: [facility] [address] [place] Work Phone: Start: 08-29-[address] Rachel Rayo Facility:[facility] Start: 08-25-2022 End: 08-25-2022 ambulatory Rachel Rayo Other [employer] Other Start: 08-25-2022 Office outpatient vi sit 15 minutes Rachel Rayo [facility] Start: 08-14-2022 ambulatory ZAINA CARUSO . Facility:H1 Start: 08-13-2022 End: 08-13-2022 ambulatory MD Rachel Rayo Work Phone: [facility] Work Phone: Start: 08-13-2022 End: 08-13-2022 Patient encounter procedure MD Rachel Rayo Work Phone: [facility] Ctr-Lab Main [place] Work Phone: Start: 08-12-2022 End: 08-12-2022 ambulatory GELA RUFFIN Facility:[facility] Start: 08-11-2022 End: 08-12-2022 ambulatory COURTNEY BROWN Facility: Start: 08-07-2022 End: 08-07-2022 Patient encounter procedure Wei Umana [facility] Start: 08-07-2022 End: 08-07-2022 Pain Management Wei Umana [facility] Start: 08-06-2022 AUDIT Rachel Rayo Work Phone: FU-Ptnxhhrszh-Itxemw Work Phone: Start: 08-05-2022 ambulatory JODIE BLADES Facility :H1 Start: 07-28-2022 End: 07-28-2022 ambulatory Jodie Blades Other [facility] [employer] Other Start: 07-28-2022 Telephone encounter Jodie Blades F [facility] Start: 07-28-2022 Rx Renewal Rachel Rayo Work Phone: BK-Guggcguyxb-PendbfuMarques Singh DO Work Phone: Start: 07-23-2022 End: 07-23-2022 ambulatory Jodie Blades Other [facility] [employer] Other Start: 07-23-2022 Telephone encounter Jodie Blades F PG [facility] Start: 07-21-2022 End: 07-21-2022 ambulatory Jodie Blades Other [facility] [employer] Other Start: 07-21-2022 Telephone encounter Jodie Blades F PG [facility] Start: 07-20-2022 Chart Update Rachel Rayo Work Phone: CR-Xqbcfjuzsc-Cdrloy Work Phone: Start: 07-18-2022 End: 07-18-2022 ambulatory Jodie Blades Other [facility] [employer] Other Start: 07-18-2022 Office outpatient ne w 45 minutes Jodie Blades [facility] [place] Start: 07-17-2022 Office outpatient vi sit 25 minutes Sally Tiwari II [facility] Start: 07-17-2022 End: 07-17-2022 ambulatory Courtney Brown Facility:[id number] Start: 07-16-[address] Jodie Matthews Facility:[id number] Start: 07-14-2022 End: 07-14-2022 ambulatory MD Rachel Rayo Work Phone: [facility] Work Phone: Start: 07-14-2022 End: 07-14-2022 Patient encounter procedure MD Rachel Rayo Work Phone: [facility] Ctr-MRI Main [place] Work Phone: Start: 07-09-[address] Rich Magana Facility:[facility] Start: 07-02-2022 End: 07-02-2022 ambulatory Rachel Rayo Other [facility] [employer] Other Start: 07-02-2022 Telephone encounter Rachel Rayo [facility] Start: 07-01-2022 AUDIT Rachel Ryao Work Phone: KX-Asoxirbpap-YcctyukMarques Singh DO Work Phone: Start: 06-30-2022 End: 07-01-2022 ambulatory RICH ROONEY Facility:H1 Start: 06-25-2022 End: 06-26-2022 ambulatory COURTNEY BROWN [employer] Other Start: 06-25-2022 Nursing evaluation o f patient and report Rachel Rayo [facility] Start: 06-25-2022 Telephone encounter Rachel Rayo [facility] Start: 06-16-2022 Office outpatient vi sit 40 minutes Rachel Rayo Work Phone: UU-Zvsmqfomuv-Xhyanjj e 2100 DO Work Phone: Start: 06-16-[address] Courtney Hurst Facility:[id number] Start: 06-10-2022 End: 06-10-2022 ambulatory Sally Tiwari II Other [employer] Other Start: 06-10-2022 Telephone encounter Sally Tiwari II [facility] Start: 06-03-2022 End: 06-03-2022 ambulatory Rachel Rayo Other [employer] Other Start: 06-03-2022 Office outpatient vi sit 15 minutes Rachel Rayo [facility] Start: 06-02-2022 Office outpatient vi sit 25 minutes Rachel Rayo Work Phone: IP-Kbsumbhcu-Nuhnxq 170 DO Work Phone: Start: 06-02-2022 Patient encounter procedure Rachel Rayo Work Phone: VB-Mzlznxqiu-Bayvul 170 DO Work Phone: Start: 06-02-[address] Jodie Matthews Facility:[id number] Start: 06-02-2022 Patient encounter procedure Rachel Rayo Work Phone: [facility] [address] [place] Work Phone: Start: 06-02-2022 ambulatory Ms. Cole Lazargabriel Facil ity:[facility] Start: 05-27-2022 Chart Update Rachel Rayo Work Phone: RC-Wzaujwaugxpfqish-L [place] 450 DO Work Phone: Start: 05-26-2022 End: 05-27-2022 ambulatory COURTNEY BROWN Facility:H1 Start: 05-22-2022 End: 05-22-2022 Patient encounter procedure MD Rachel Rayo Work Phone: [facility] Ctr-[facility] Start: 05-22-2022 End: 05-22-2022 ambulatory MD Rachel Rayo Work Phone: [facility] Work Phone: Start: 05-22-2022 Office outpatient vi sit 25 minutes Sally Tiwari II [facility] Start: 05-19-2022 End: 05-20-[address] ELIZABETH CHAUDHRY . Facility:H1 Start: 05-19-2022 End: 05-19-2022 Patient encounter procedure Elizabeth CHAUDHRY [facility] Start: 05-16-2022 End: 05-16-2022 ambulatory MD Rachel aRyo Work Phone: [facility] Work Phone: Start: 05-16-2022 End: 05-16-2022 Registered Recurring MD Rachel Rayo Work Phone: [facility] Work Phone: Start: 05-15-2022 End: 05-16-[address] LYNETTE JIMÉNEZ . Facility:H1 Start: 05-12-2022 Rx Renewal Rachel Rayo Work Phone: SB-Gdmyrdkho-Yxkjlb 170 DO Work Phone: Start: 05-12-2022 End: 05-12-[address] Rachel Rayo Facility:[id number] Start: 05-07-[address] LYNETTE JIMÉNEZ . Faci lity:H1 Start: 05-02-2022 Chart Update Rachel Rayo Work Phone: [facility] [address] [place] Work Phone: Start: 05-01-2022 Adult health examination Annie Rayo Other [employer] Other Start: 05-01-2022 Pre-procedure evalua tion check Rachel Rayo Other [employer] Other Start: 05-01-[address] Rich Magana Facility:[id number] Start: 04-24-2022 Rx Renewal Rachel Rayo Work Phone: LN-Cvrbngthk-Xlhsm 204 Work Phone: Start: 04-16-2022 BOTOX, Provider: Jodie Matthews, Status: Pen, Time: 2:30 PM Rachel Rayo Work Phone: [facility] [address] [place] Work Phone: Start: 04-16-[address] Jodie Matthews Facility:[id number] Start: 04-16-2022 End: 04-16-2022 Emergency department patient visit MD Rachel Rayo Work Phone: [facility] Start: 04-15-2022 Office outpatient vi sit 25 minutes Rachel Rayo Work Phone: [facility] [address] [place] Work Phone: Start: 04-15-[address] Rich Magana Facility:[facility] Start: 04-14-[address] Courtney Hurst Facility:[id number] Start: 04-11-2022 Registered Recurring MD Rachel Rayo Work Phone: [facility] Start: 04-10-2022 End: 04-10-2022 ambulatory Sally Tiwari II Other [employer] Other Start: 04-10-2022 Office outpatient vi sit 25 minutes Sally Tiwari II [facility] Start: 04-05-2022 End: 04-05-2022 Emergency department patient visit MD Rachel Rayo Work Phone: [facility] Start: 04-03-2022 Registered Recurring MD Rachel Rayo Work Phone: [facility] Start: 04-03-2022 AUDIT Rachel Rayo Work Phone: SV-Kppihclqkrapaglc-E [place] 450 DO Work Phone: Start: 04-02-2022 End: 04-02-2022 ambulatory COURTNEY BROWN Facility:H1 Start: 03-28-2022 End: 03-28-2022 ambulatory RAFY MENG Facility:H1 Start: 03-18-2022 End: 03-18-2022 ambulatory MD Rachel Rayo Work Phone: [facility] Work Phone: Start: 03-18-2022 End: 03-18-2022 Registered Recurring MD Rachel Rayo [facility] Start: 03-17-2022 Rx Renewal Rachel Rayo Work Phone: UE-Rkisdbqao-Pdvcwy 170 DO Work Phone: Start: 03-10-2022 Rx Renewal Rachel Rayo Work Phone: RL-Ciemorcfp-Gnxjfj 170 DO Work Phone: Start: 03-07-2022 End: 03-08-2022 ambulatory COURTNEY BROWN Facility:H1 Start: 03-04-2022 AUSNCION Rayo Work Phone: WI-Eobktrfobk-Smclfi Work Phone: Start: 02-28-2022 End: 03-01-2022 ambulatory COURTNEY BROWN Facility:H1 Start: 02-28-2022 AUDIT Rachel Rayo Work Phone: SB-Mjplojwhnj-Tktukxy e 2100 DO Work Phone: Start: 02-26-[address] Jodie Matthews Facility:[id number] Start: 02-26-2022 [facility], Provider : Jodie Matthews, Status: Pen, Time: 9:30 AM Rachel Rayo Work Phone: OU-Nuzvggmlfp-Mmonrps e 2100 DO Work Phone: Start: 02-26-2022 Office outpatient vi sit 15 minutes Rachel E Rayo Work Phone: BQ-Rdgfmafdh-Xjvwek 170 DO Work Phone: Start: 02-24-2022 Office outpatient vi sit 40 minutes Rachel Rayo Work Phone: JX-Gqteosqiyx-Htherrl e 2100 DO Work Phone: Start: 02-24-[address] Courtney Hurst Facility:[id number] Start: 02-21-2022 Rx Renewal Rachel Rayo Work Phone: PT-Adujioriz-Sqbpbzh 5th Work Phone: Start: 02-18-2022 End: 02-19-[address] LYNETTE JIMÉNEZ . Facility:H1 Start: 02-14-2022 End: 02-15-[address] LYNETTE BURNS Facility:H1 Start: 02-12-2022 AUDIT Rachel Rayo Work Phone: FB-Fikdfpiihl-Cpmsbj Work Phone: Start: 02-12-2022 Office outpatient vi sit 25 minutes Rachel Rayo Work Phone: [facility] [address] [place] Work Phone: Start: 02-12-[address] Rich Magana Facility:[facility] Start: 01-23-2022 End: 01-23-2022 ambulatory Sally Tiwari II Other [employer] Other Start: 01-23-2022 Office outpatient ne w 45 minutes Sally Tiwari II [facility] Start: 01-23-2022 End: 01-23-2022 Patient encounter procedure MD Rachel Rayo Work Phone: [facility] Start: 01-15-2022 BOTOX, Provider: Jodie Matthews, Status: Pen, Time: 2:00 PM Rachel Rayo Work Phone: VC-Vdixkmiubx-Qwhvddx e 2100 DO Work Phone: Start: 01-15-2022 Patient encounter procedure Rachel Rayo Work Phone: OR-Geghcwjpw-Zayino 170 DO Work Phone: Start: 01-14-2022 End: 01-14-2022 Registered Recurring MD Rachel Rayo Work Phone: [facility] Start: 01-13-2022 AUDIT Rachel Rayo Work Phone: RR-Qqptcuaabe-Joemmqi e 2100 DO Work Phone: Start: 01-08-2022 AUDIT Rachel Rayo Work Phone: JP-Tvjvobthm-Nqrgjt 170 DO Work Phone: Start: 01-08-2022 End: 01-09-2022 ambulatory GELA RUFFIN Facility:[facility] Start: 01-02-2022 NPV, Provider: Fernando Rivera, Status: Pen, Time: 1:00 PM Rachel Rayo Work Phone: SI-Plqxvivmyr-Qbnpkdb e 2100 DO Work Phone: Start: 12-31-2021 AUDIT Rachel Rayo Work Phone: TG-Bzqerrtcyl-Xsouicb e 2100 DO Work Phone: Start: 12-17-2021 INJECTION, Provider: JASS THOMAS, Status: Pen, Time: 11:45 AM Rachel Rayo Work Phone: [facility] [address] [place] Work Phone: Start: 12-16-2021 Office outpatient vi sit 15 minutes Rachel Rayo Work Phone: [facility]-[place] [address] [place] Work Phone: Start: 12-06-2021 End: 12-06-[address] DOCTOR GOEL Facility:H1 Start: 12-05-[address] LYNETTE JIMÉNEZ . Faci lity:H1 Start: 12-03-2021 End: 12-04-[address] LYNETTE JIMÉNEZ . Facility:H1 Start: 12-02-2021 AUDIT Rachel Rayo Work Phone: GN-Gkkuogfhvs-Fxvdpqh e 2100 DO Work Phone: Start: 11-30-2021 Chart Update Rachel Rayo Work Phone: GU-Hjhlkeylyv-Bxnubeu e 2100 DO Work Phone: Start: 11-27-2021 End: 11-28-2021 ambulatory RAFY MENG Facility:H1 Start: 11-27-2021 End: 11-28-2021 ambulatory BETH ISAEBL . Facility:H1 Start: 11-06-2021 Office outpatient vi sit 25 minutes Rachel Rayo Work Phone: QS-Onulsgbzy-Zwqxbs 170 DO Work Phone: Start: 10-29-2021 Rx Renewal Rachel Rayo Work Phone: [facility] [address] [place] Work Phone: Start: 10-25-2021 AUDIT Rachel Rayo Work Phone: IN-Rnjkzvsib-Hjuaode 5th Work Phone: Start: 10-24-2021 AUTONOMIC, Provider: AUTO-CHAGRIN,NEURODIAG, Status: Pen, Time: 9:00 AM Rachel Rayo Work Phone: ZY-Qxecegsmwz-Llgsnet e 2100 DO Work Phone: Start: 10-22-2021 Patient encounter procedure Rachel Rayo Work Phone: EF-Qtdqjcwkds-Qvdhdmn e 2100 DO Work Phone: Start: 10-07-2021 End: 10-08-[address] RACHEL RAYO Facility:H1 Start: 10-02-2021 Telephone encounter Rachel laird Work Phone: DE-Uqiznzjtw-Keroel 170 DO Work Phone: Start: 09-23-2021 Chart Update Rachel Rayo Work Phone: MM-Olvdigovdd-Gftvgzu e 2100 DO Work Phone: Start: 09-19-2021 End: 09-19-2021 ambulatory COURTNEY BROWN Facility:H1 Start: 09-16-2021 Rx Change Rachel Rayo Work Phone: [facility] [address] [place] Work Phone: Start: 09-16-2021 Patient encounter procedure Rachel Rayo Work Phone: OA-Yhsekpzjl-Etmdzq 170 DO Work Phone: Start: 09-16-2021 Office outpatient vi sit 25 minutes Rachel Rayo Work Phone: [facility] [address] [place] Work Phone: Start: 09-13-[address] RACHEL RAYO Facil ity:H1 Start: 09-12-2021 Rx Renewal Rachel Rayo Work Phone: FU-Bppzzielf-Mcvzfc 170 DO Work Phone: Start: 09-12-2021 End: 09-13-[address] RACHEL RAYO Facility:H1 Start: 09-12-2021 AUTONOMIC, Provider: AUTO-CHAGTRAVONNEURODIAG, Status: Pen, Time: 1:00 PM Rachel Rayo Work Phone: BB-Ktsovyxvie-Qzdcszy e 2100 DO Work Phone: Start: 09-10-2021 AUDIT Rachel Rayo Work Phone: YM-Ruvkfvbarp-Gpreidy e 2100 DO Work Phone: Start: 09-02-2021 Patient encounter procedure Rachel Rayo Work Phone: MG-Pulm Sleep-[place] [address] [place] Work Phone: Start: 08-22-2021 Office outpatient vi sit 40 minutes Rachel Rayo Work Phone: RG-Gitemqszr-Tnhies 170 DO Work Phone: Start: [facility] : Jodie Matthews, Status: Pen, Time: 2:00 PM Rachel Rayo Work Phone: NQ-Natgyzgpb-Urxgdw 170 DO Work Phone: Start: 08-21-2021 Office outpatient vi sit 5 minutes Rachel Rayo Work Phone: GQ-Etofvobcf-Ooqeqp 170 DO Work Phone: Start: 08-14-2021 STRESS NUC, [facility] : [facility][id number], Status: Pen, Time: 7:30 AM Rachel Rayo Work Phone: CS-Ynidgwymlq-Mwbrzpx e 2100 DO Work Phone: Start: 08-13-2021 Office outpatient vi sit 25 minutes Rachel Rayo Work Phone: GX-Gklkmsngif-Xqhjxk Work Phone: Start: 08-13-2021 Patient encounter procedure Rachel Rayo Work Phone: LM-Cnvnandais-Rnngsoe e 2100 DO Work Phone: Start: 08-07-2021 AUDIT Rachel Rayo Work Phone: XK-Ccoaowppt-Xcbrvh 170 DO Work Phone: Start: 08-05-2021 Message Rachel Rayo Work Phone: [facility] 250 DO Work Phone: Start: 07-29-2021 End: 07-30-2021 Evaluation and management of inpatient MD Rachel Rayo Work Phone: [facility] Ctr-3 [place] [facility] Start: 07-23-2021 Rx Renewal Rachel Rayo Work Phone: [facility] [address] [place] Work Phone: Start: 06-21-2021 Chart Update Rachel Rayo Work Phone: LQ-Hqglsjcnig-Jloojaw e 2100 DO Work Phone: Start: 06-19-2021 BOTOX, Provider: Jodie Matthews, Status: Pen, Time: 1:00 PM Rachel Raoy Work Phone: JI-Iulmqknyhn-Fnhlswh e 2100 DO Work Phone: Start: 06-19-2021 Chart Update Rachel Rayo Work Phone: ZJ-Nanriixwmc-Jlcyeb Work Phone: Start: 06-18-2021 FUV, Provider: Courtney Brown, Status: Pen, Time: 10:45 AM Rachel Rayo Work Phone: UC-Wwktztwmvu-Rlxlazw e 2100 DO Work Phone: Start: 06-18-2021 Office outpatient vi sit 25 minutes Rachel Rayo Work Phone: TF-Cptnaugvis-Xkdyvbx e 2100 DO Work Phone: Start: 06-17-2021 Rx Renewal Rachel Rayo Work Phone: OM-Ufdduealtt-Grpbexx e 2100 DO Work Phone: Start: 06-12-2021 FUV, Provider: Rich Magana, Status: Pen, Time: 11:30 AM Rachel Rayo Work Phone: [facility] [address] [place] Work Phone: Start: 06-10-2021 Chart Update Rachel Rayo Work Phone: [facility] [address] [place] Work Phone: Start: 06-07-2021 Chart Update Rachel Amador Rayo Work Phone: MG-Pulm Sleep-[place] [address] [place] Work Phone: Start: 06-04-2021 VIRFUVBEBETOE, Provider : Courtney Brown, Status: Pen, Time: 11:45 AM Rachel Rayo Work Phone: [facility] [address] [place] Work Phone: Start: 06-03-2021 Patient encounter procedure Racheldario Rayo Work Phone: [facility] [address] [place] Work Phone: Start: 05-22-2021 Rx Renewal Rachel Rayo Work Phone: SI-Xunkxbnyok-Navcdc Work Phone: Start: 05-16-2021 FUVGENERAL, Provider : Mathew Miller, Status: Pen, Time: 9:30 AM Rachel Rayo Work Phone: HV-Eigpmhxpo-Uosybcc 3300A Work Phone: Start: 05-16-2021 Office outpatient vi sit 40 minutes Rachel Rayo Work Phone: FQ-Jpqxkxgrr-Oxuop 204 Work Phone: Start: 05-15-2021 ENG, Provider: Marina Alcantar, Status: Pen, Time: 8:30 AM Rachel Rayo Work Phone: LG-Xeafslpdre-Obkzhdx e 2100 DO Work Phone: Start: 05-15-2021 Follow-up encounter Rachel laird Work Phone: FC-Zlzkjyzfx-Zvxwdaw 3300A Work Phone: Start: 05-13-2021 Patient encounter procedure Rachel Rayo Work Phone: XB-Pyynpdioko-Zsqpwmg e 2100 DO Work Phone: Start: 05-07-2021 Office outpatient vi sit 25 minutes Rachel Rayo Work Phone: [facility] [address] [place] Work Phone: Start: 05-02-2021 ENG, Provider: Marina Alcantar, Status: Pen, Time: 10:00 AM Rachel Rayo Work Phone: MP-Pulmonary Medicine-[place] A2470 DO Work Phone: Start: 04-22-2021 AUDIT Rachel Rayo Work Phone: VE-Hlxyiutozg-Hwqazov e 2100 DO Work Phone: Start: 04-19-2021 Follow-up encounter Rachel laird Work Phone: Audiology-[facility] [address]ld[address] 290 Work Phone: Start: 04-10-2021 Patient encounter procedure Rachel Rayo Work Phone: UD-Mejukuayz-Hpyndc 170 DO Work Phone: Start: 04-01-2021 Office outpatient vi sit 40 minutes Rachel Rayo Work Phone: BN-Uhjvjcqssi-Zuriaj Work Phone: Start: 04-01-2021 Office consultation new/estab patient 60 min Rachel Rayo Work Phone: MP-Pulmonary Medicine-[place] A2470 DO Work Phone: Start: 04-01-2021 Patient encounter procedure Rachel Rayo Work Phone: MP-[facility]ulmonary Medicine-[place] A2470 DO Work Phone: Start: 03-22-2021 Rx Renewal Rachel Rayo Work Phone: KV-Hdimpcwpw-Xldylx 170 DO Work Phone: Start: 03-20-2021 FUV, Provider: Rich Magana, Status: Pen, Time: 10:45 AM Rachel Rayo Work Phone: GO-Msnjquzfl-Xffhjq 170 DO Work Phone: Start: 03-20-2021 NPV, Provider: Jaci Solano, Status: Pen, Time: 8:00 AM Rachel Rayo Work Phone: WD-Nmxxytvyqx-Yrlimnp e 2100 DO Work Phone: Start: 03-18-2021 Rx Renewal Rachel E Rayo Work Phone: CS-Aalfamakt-Oebzbk 170 DO Work Phone: Start: 03-15-2021 Patient encounter procedure Rachel E Rayo Work Phone: WL-Xyuoykstwx-Douifsi e 2100 DO Work Phone: Start: 03-04-2021 Chart Update Rachel E Rayo Work Phone: DU-Tmybwqsku-Ucpyf 204 Work Phone: Start: 02-21-2021 Patient encounter procedure Rachel E Rayo Work Phone: KS-Jbcronugt-Yqobdq 170 DO Work Phone: Start: 02-06-2021 Rx Renewal Rachel E Rayo Work Phone: OT-Jqjtnijidw-Gfdpemh e 2100 DO Work Phone: Start: 02-05-2021 Office outpatient vi sit 25 minutes Rachel Rayo Work Phone: EH-Ffrvcbgng-Ehtsb 204 Work Phone: Start: 01-28-2021 Patient encounter procedure Rachel E Rayo Work Phone: BM-Jjfvqmeyvu-Ytvnyls e 2100 DO Work Phone: Start: 01-25-2021 Chart Update Rachel E Rayo Work Phone: TZ-Etrdghsdet-Sinzvui e 2100 DO Work Phone: Start: 01-03-2021 Rx Renewal Rachel E Rayo Work Phone: SZ-Dzqyhymrg-Hkttgt 170 DO Work Phone: Start: 01-02-2021 Office consultation new/estab patient 60 min Rachel Rayo Work Phone: [facility] [place] Work Phone: Start: 12-31-2020 Rx Renewal Rachel Rayo Work Phone: WA-Femhxdkxa-Ypftunp 5th Work Phone: Start: 12-24-2020 Rx Renewal Rachel Rayo Work Phone: MP-Ifjquzfbju-Xnnsilv e 2100 DO Work Phone: Start: 12-12-2020 Office outpatient vi sit 5 minutes Rachel Rayo Work Phone: UH-Khkgiofdv-Eitmkt 170 DO Work Phone: Start: 12-11-2020 Chart Update Rachel Rayo Work Phone: MS-Hrkcwehrcd-Ghipccm e 2100 DO Work Phone: Start: 12-10-2020 Pt-focused hlth risk assmt score doc stnd instrm Rachel Rayo Work Phone: UB-Gfurrggfoc-Krpjzmn e 2100 DO Work Phone: Start: 12-07-2020 Chart Update Rachel Rayo Work Phone: [facility] [address] [place] Work Phone: Start: 12-06-2020 Current tobacco non- user cad cap copd pv dm Rachel Rayo Work Phone: [facility] [address] [place] Work Phone: Start: 12-03-2020 Chart Update Rachel Rayo Work Phone: IR-Awmfhxttzq-Uwxoizi e 2100 DO Work Phone: Start: 12-03-2020 Chart Update Rachel Rayo Work Phone: CD-Qscqtlqhcv-Etgdubu e 2100 DO Work Phone: Start: 11-27-2020 Chart Update Rachel English Perri Work Phone: UI-Psusligtpc-Tekfesl e 2100 DO Work Phone: Start: 11-27-2020 AUDIT Rachel English Perri Work Phone: BR-Ulimyoxywd-Ypjirjj e 2100 DO Work Phone: Start: 11-26-2020 Office outpatient vi sit 25 minutes Rachel Rayo Work Phone: [facility] Work Phone: Start: 11-26-2020 Patient encounter procedure Rachel English Perri Work Phone: EO-Dxbdkztkzp-Cccpfkc e 2100 DO Work Phone: Start: 11-22-2020 Patient encounter procedure Racehl English Perri Work Phone: ON-Txluibabq-Zpfrra 170 DO Work Phone: Start: 11-02-2020 Image Encounter Rachel English Perri Work Phone: ZS-Pxudptvxvn-Qjacsig e 2100 DO Work Phone: Start: 11-02-2020 AUDIT Rachel English Perri Work Phone: HE-Czqyiptnbp-Vzdytfh e 2100 DO Work Phone: Start: 10-30-2020 Patient encounter procedure Rachel English Perri Work Phone: MC-Tduspgnulw-Gdfwcgn e 2100 DO Work Phone: Start: 10-17-2020 AUDIT Rachel English Perri Work Phone: AK-Wxryjbysc-Oswjmh 170 DO Work Phone: Start: 10-15-2020 AUDIT Racheldario Rayo Work Phone: LI-Zdjonmibih-Uynpvqy e 2100 DO Work Phone: Start: 10-03-2020 Office outpatient vi sit 5 minutes Rachel Rayo Work Phone: EU-Lpghoktft-Cxnliu 170 DO Work Phone: Start: 10-02-2020 Rx Renewal Rachle Rayo Work Phone: BW-Igomvrpds-Xcdctf 170 DO Work Phone: Start: 09-25-2020 AUDIT Rachel Rayo Work Phone: WA-Tqougwhaij-Wtemaon e 2100 DO Work Phone: Start: 09-19-2020 Patient encounter procedure Courtney Brown MD OR-Jmkwjyqgh-Ardmwa 170 DO Work Phone: Start: 09-08-2020 End: 09-08-2020 Emergency department patient visit Jarret Tong MD Work Phone: [facility] Emergency Dept Comment on above: COPD exacerbation (H CC) (Primary Dx) Start: 09-05-2020 Patient encounter procedure Courtney Brown MD RY-Hagutdcpq-Nhwhzv 170 DO Work Phone: Start: 09-03-2020 Patient encounter procedure Courtney Brown MD ZR-Eqtbgfbzl-Pssveo 170 DO Work Phone: Start: 08-30-2020 Patient encounter procedure Courtney Brown MD VB-Qcsztseta-Iemshq 170 DO Work Phone: Start: 08-29-2020 Patient encounter procedure Courtney Brown MD SO-Mbofpymva-Hyqlzy 170 DO Work Phone: Start: 08-25-2020 End: 08-25-2020 Emergency department patient visit Felisha Rader MD Work Phone: [facility] Emergency Dept Comment on above: Pneumonia of both anel ngs due to infectious organism, unspecified part of lung (Primary Dx) Start: 07-12-2020 Patient encounter procedure Courtney Brown MD AL-Ezwpyliac-Kijned 170 DO Work Phone: Start: 07-09-2020 Patient encounter procedure Courtney Brown MD SY-Siuwndmts-Hfqdky 170 DO Work Phone: Start: 07-03-2020 Patient encounter procedure Courtney Brown MD OZ-Xlthgewde-Umlbta 170 DO Work Phone: Start: 05-17-2020 Patient encounter procedure Courtney Brown MD NX-Pgzhikltp-Jsrsfy 170 DO Work Phone: Start: 05-08-2020 Patient encounter procedure Courtney HerzogStephanie MP-[facility] Work Phone: Start: 03-13-2020 Patient encounter procedure Courtney Reyesrias -[facility] Work Phone: Start: 02-28-2020 Patient encounter procedure Courtney Brown -[facility] Work Phone: Start: 02-23-2020 Patient encounter procedure Courtney Brown -[facility] Work Phone: Start: 02-14-2020 Patient encounter procedure Courtney Brown MPWC-Zwmrmucquj-Ohrears Work Phone: Start: 12-08-2019 End: 12-08-2019 Subsequent hospital visit by physician Tuan Covid Screening Schedule [facility] Covid Screening Comment on above: Chronic obstructive pulmonary disease, unspecified COPD type (HCC) Start: 11-23-2019 Patient encounter procedure Courtney Randallas SO-Zayeyqmzq-Mszqci 170 DO Work Phone: Start: 11-15-2019 Patient encounter procedure Courtney HerzogStephanie RK-Bcyevuhxz-Yarapo 170 DO Work Phone: Start: 11-07-2019 Patient encounter procedure Courtney Randallas IT-Mkbdblhva-Obsrwg 170 DO Work Phone: Start: 09-13-2019 Patient encounter procedure Courtney Randallas FV-Octwuvgvz-Bswehm 170 DO Work Phone: Start: 07-25-2019 Patient encounter procedure Courtney Stephanie TB-Dmdcijvza-Onoacz 170 DO Work Phone: Start: 07-22-2019 End: 07-22-2019 [facility] Comment on above: Canceled (Patient) Start: 07-15-2019 End: 07-17-2019 Subsequent hospital visit by physician Chris Wing Dr Room 2 [facility] Radiology Comment on above: Recurrent aspiration pneumonia (HCC) Start: 07-15-2019 End: 07-17-2019 Subsequent [facility] Comment on above: Arrived Start: 06-20-2019 End: 06-20-2019 Subsequent [facility] Comment on above: Arrived Start: 06-13-2019 End: 06-13-2019 Subsequent [facility] Comment on above: Arrived Start: 06-07-2019 End: 06-07-2019 Subsequent [facility] Comment on above: Arrived Start: 05-31-2019 End: 05-31-2019 Subsequent hospital visit by physician Jacki MARTINEZ [facility] Speech Therapy Comment on above: Arrived Start: 05-24-2019 Patient encounter procedure Courtney Brown MPRM-Wzvwjyiugp-Aahzqso e Work Phone: Start: 05-16-2019 End: 05-18-2019 Subsequent hospital visit by physician Chris Salcido Radiologist [facility] Radiology Comment on above: Pneumonia of right u pper lobe due to infectious organism (HCC); Recurrent aspiration pneumonia (HCC) Start: 04-19-2019 End: 04-19-2019 Subsequent hospital visit by physician Chris Room [facility] PFT Comment on above: Severe persistent as thma without complication Start: 04-06-2019 End: 04-08-2019 Subsequent hospital visit by physician Chris Cat Scan Room [facility] Laboratory Comment on above: Dyslipidemia Pneumonia of right m iddle lobe due to infectious organism (HCC) Start: 04-01-2019 End: 04-01-2019 Patient encounter procedure [place] [facility] Start: 04-01-2019 End: 04-01-2019 Subsequent hospital visit by physician [place] Fulton Work Phone: ST Endoscopy Start: 03-25-2019 End: 03-25-2019 Subsequent hospital visit by physician Chris Lab Drawing Room [facility] Laboratory Comment on above: Pneumonia of right m iddle lobe due to infectious organism (HCC) Start: 03-24-2019 End: 03-24-2019 Subsequent hospital visit by physician Oni Gr [facility] Laboratory Start: 03-22-2019 End: 03-24-2019 Subsequent hospital visit by physician Chris Wing Dr Room 2 [facility] Radiology Comment on above: Pneumonia of right m iddle lobe due to infectious organism (HCC) Intractable migraine without aura and without status migrainosus Start: 03-04-2019 Patient encounter procedure ALLERGY MAIL EXAMINER Lucero english Work Phone: Start: 01-20-2019 End: 01-20-2019 Subsequent hospital visit by physician Wei Aguirre [facility] Physical Therapy Comment on above: Canceled (Patient co ndition) Start: 01-17-2019 End: 01-17-2019 Subsequent hospital visit by physician Wei Aguirre [facility] Physical Therapy Start: 01-14-2019 Patient encounter procedure Courtney SHARPENeurology-Par[place] 204 Work Phone: Start: 01-12-2019 End: 01-12-2019 Subsequent hospital visit by physician Kodi Mancia [facility] Physical Therapy Start: 01-12-2019 End: 01-14-2019 Subsequent hospital visit by physician Chris Wing Dr Room 2 [facility] Radiology Comment on above: Cough Start: 12-26-2018 End: 12-26-2018 Emergency department patient visit [facility] ED Comment on above: Acute bronchitis, un specified organism (Primary Dx); COPD exacerbation (HCC) Start: 12-21-2018 End: 12-23-2018 Subsequent hospital visit by physician Chris Arzate Drawing Room [facility] Laboratory Comment on above: Lymphadenopathy, ing uinal Start: 12-17-2018 End: 12-17-2018 Subsequent hospital visit by physician Kodi Mancia [facility] Physical Therapy Comment on above: Arrived Start: 12-15-2018 End: 12-15-2018 Subsequent hospital visit by physician Kaya Cancino [facility] Physical Therapy Start: 12-14-2018 End: 12-14-2018 Subsequent hospital visit by physician Kodi Mancia [facility] Physical Therapy Comment on above: Arrived Start: 12-10-2018 End: 12-10-2018 Subsequent hospital visit by physician Kaya Cancino [facility] Physical Therapy Comment on above: Arrived Start: 12-08-2018 End: 12-08-2018 Subsequent hospital visit by physician Kodi Mancia [facility] Physical Therapy Start: 11-09-2018 Patient encounter procedure Courtney Brown MPKG-Zductnbkz-Jieil 204 Work Phone: Start: 10-11-2018 Patient encounter procedure Courtney Brown QW-Kpbxmpflk-Wuplz 204 Work Phone: Start: 09-07-2018 Patient encounter procedure Courtney Brown MPBT-Xjaqmqiukn-Umuare Work Phone: Start: 08-18-2018 Patient encounter procedure Courtney Brown OP-Ixhukbeqi-Hrmzf 204 Work Phone: Start: 08-02-2018 Patient encounter procedure Courtney Brown BB-Uwrwsnetsn-Hwcjjm Work Phone: Start: 07-23-2018 Patient encounter procedure Courtney Brown DC-Pzrnnfhaoo-Xiqejf Work Phone: Start: 07-13-2018 Patient encounter procedure Courtney Borwn PC-Zizjhdefpk-Ealcqq Work Phone: Start: 06-23-2018 Patient encounter procedure Courtney Brown GB-Kbehiihxnw-Cdzncf Work Phone: Start: 05-13-2018 Patient encounter procedure Courtney Brown MN-Oaavbeutbg-Qpkmub Work Phone: Start: 05-12-2018 Patient encounter procedure Courtney Brown VD-Svefddbobo-Rwtlim Work Phone: Start: 05-11-2018 Patient encounter procedure Courtney Brown ZP-Bktuizrpkx-Unpquw Work Phone: Start: 05-07-2018 Patient encounter procedure Courtney Brown SF-Pnzjklzqar-Tfiogm Work Phone: Start: 04-26-2018 End: 04-28-2018 Evaluation and management of inpatient [facility] [place] Facility:[facility] Start: 04-21-2018 Patient encounter procedure Courtney Brown QC-Bxlzgagriu-Wqequl Work Phone: Start: 04-08-2018 Patient encounter procedure Courtney Brown SD-Ybhthvweiu-Mooyup Work Phone: Start: 03-19-2018 Patient encounter procedure Courtney Brown MPES-Ajfjzrgxlg-Hdbvcy Work Phone: Start: 03-16-2018 Patient encounter procedure Courtney Brown MPBJ-Nullxdrali-Ogoxzh Work Phone: Start: 03-09-2018 Patient encounter procedure Courtney Brown MPZS-Bpqveforgw-Ywaeur Work Phone: Start: 03-03-2018 Patient encounter procedure Courtney Brown MPNM-Jfmhlwwqot-Xebghc Work Phone: Start: 03-01-2018 Patient encounter procedure Courtney Brown CY-Gthbwjjuig-Upgfyz Work Phone: Start: 02-24-2018 Patient encounter procedure Courtney Brown MPTZ-Iuqohdkumx-Rqtlvl Work Phone: Start: 02-10-2018 Patient encounter procedure Courtney Brown MPQM-Fvjbjxfmxd-Yuspkl Work Phone: Start: 01-27-2018 Patient encounter procedure Courtney Brown MPRL-Dtyeepkzed-Xouhvd Work Phone: Start: 01-11-2018 Patient encounter procedure Courtney Brown MPEI-Wjjvrkuqls-Zwvncl Work Phone: Start: 12-29-2017 Patient encounter procedure Courtney Brown MPIQ-Leqpbsizgj-Iyejsp Work Phone: Start: 12-23-2017 Patient encounter procedure Courtney Brown MPUJ-Gigewdarfq-Lelqwr Work Phone: Start: 11-30-2017 Patient encounter procedure Courtney Brown MPJM-Zauwdsribu-Trcvpt Work Phone: Start: 11-17-2017 Patient encounter procedure Courtney Brown MPUK-Ptmkhnsnrf-Uwdoko Work Phone: Start: 11-12-2017 Patient encounter procedure Courtney Brown MPZB-Pariuxtryl-Hxthud Work Phone: Start: 11-10-2017 Patient encounter procedure Courtney Brown MPKZ-Xobhrwzsqk-Gclvgh Work Phone: Start: 11-06-2017 Patient encounter procedure Courtney Brown MPAM-Xboyrtqzyg-Dsmnag Work Phone: Start: 11-02-2017 Patient encounter procedure Courtney Brown YF-Rujuiazxat-Fbdstp Work Phone: Start: 10-22-2017 Patient encounter procedure Courtney Brown MPPU-Sxgrwlrwtw-Azulte Work Phone: Start: 10-14-2017 Patient encounter procedure Courtney Brown IG-Simaqdzsbv-Oewcjk Work Phone: Start: 10-07-2017 Patient encounter procedure Courtney Brown XB-Rxubtyvqta-Jsuhkh Work Phone: Start: 09-22-2017 Patient encounter procedure Courtney Brown YU-Kuabpmriqz-Ndmeka Work Phone: Start: 09-09-2017 Patient encounter procedure Courtney Brown QL-Bmaboiwhtf-Asgzff Work Phone: Start: 08-26-2017 Patient encounter procedure Courtney Brown VA-Nvqkoquzvf-Itwvxu Work Phone: Start: 08-25-2017 Patient encounter procedure Courtney Brown TJ-Kvwvdijqel-Uuhcar Work Phone: Start: 08-19-2017 Patient encounter procedure Courtney Brown UJ-Bochykfeqg-Diipvz Work Phone: Start: 08-04-2017 Patient encounter procedure Courtney Brown SY-Encrbopptv-Bpdizs Work Phone: Start: 07-28-2017 Patient encounter procedure Courtney Brown ZY-Vuisastlry-Vsrkdf Work Phone: Start: 07-07-2017 Patient encounter procedure Courtney Brown VQ-Nxrspdeols-Krsbjj Work Phone: Start: 07-03-2017 Patient encounter procedure Courtney Brown XS-Zjprabudeg-Fwqgbz Work Phone: Start: 06-23-2017 Patient encounter procedure Cuortney Brown AL-Inhtzphfia-Lummjq Work Phone: Start: 06-11-2017 Patient encounter procedure Courtney Brown MPKY-Nhpjlzhenu-Txypbr Work Phone: Start: 06-09-2017 Patient encounter procedure Courtney Stephanie PS-Jiofdrfarv-Npplxu Work Phone: Start: 05-28-2017 Patient encounter procedure Courtney Brown MPAW-Vqzywvlheb-Urdpuu Work Phone: Start: 05-11-2017 [place] [facility] [place] [place]: 05-09-2017 End: 05-13-2017 Evaluation and management of inpatient Mathew Miller Facility:[facility] Start: 05-07-2017 Patient encounter procedure Courtney Brown MPZP-Xtozzmaeyk-Uilpav Work Phone: Start: 05-06-2017 Patient encounter procedure Courtney Brown MPSD-Asijxvedhw-Ysxcqh Work Phone: Start: 04-30-2017 Patient encounter procedure Courtney Brown MPGD-Mwbaktjrah-Sbijro Work Phone: Start: 04-17-2017 Patient encounter procedure Courtney Brown MPSY-Fcqwfgexsk-Jdunhf Work Phone: Start: 04-02-2017 Patient encounter procedure Courtney Randallas TR-Dtavzacjrn-Gtjgre Work Phone: Start: 03-31-2017 Patient encounter procedure Courtney Brown MPFA-Wuaxuethuz-Annttz Work Phone: Start: 03-11-2017 Patient encounter procedure Courtney Brown MPWQ-Pohnieyjsy-Wdeogt Work Phone: Start: 02-25-2017 Patient encounter procedure Courtney Brown MPMO-Mnkurdingr-Bhcwld Work Phone: Start: 02-10-2017 Patient encounter procedure Courtney Brown MPGQ-Nqkuzbalkw-Uxlmqn Work Phone: Start: 01-28-2017 Patient encounter procedure Courtney Brown MPFS-Qmzcnsokzf-Dbwtpo Work Phone: Start: 01-20-2017 Patient encounter procedure Courtney Brown MPHH-Nnzbwtuccs-Fvdizy Work Phone: Start: 2017 Patient encounter procedure Courtney Brown MPCR-Mjishvlkmn-Uaskuy Work Phone: Start: 01-07-2017 Patient encounter procedure Courtney Brown MPSD-Tjpjeodiud-Jbfiff Work Phone: Start: 12-31-2016 Patient encounter procedure Courtney Brown MPPP-Vardllpxdk-Twozyv Work Phone: Start: 12-16-2016 Patient encounter procedure Courtney Brown MPVE-Nbzgirimvq-Ohkyhx Work Phone: Start: 11-18-2016 Patient encounter procedure Courtney Brown MPRA-Cxbxjbnvst-Vzzjse Work Phone: Start: 10-21-2016 Patient encounter procedure Courtney Brown MPAG-Lzkukwbvuc-Gkoizo Work Phone: Start: 10-15-2016 Patient encounter procedure Courtney Brown MPQT-Nwxpoyaleu-Pamdtm Work Phone: Start: 09-30-2016 Patient encounter procedure Courtney Brown MPUO-Desosbsclw-Swbqlg Work Phone: Start: 09-24-2016 Patient encounter procedure Courtney Brown MPNW-Aretxuyyqq-Rnxeay Work Phone: Start: 09-24-2016 Patient encounter procedure Courtney Brown MPEE-Lueryinana-Vpactn Work Phone: Start: 09-16-2016 Patient encounter procedure Courtney Brown MPLB-Ehecpxjika-Bqyokb Work Phone: Procedures Date Procedure Procedure Detail Performing Clinician Start: 09-13-2024 Potassium [Moles/vol ume] in Serum or Plasma Courtney Brown MD Work Phone: Start: 09-13-2024 Complete blood count with white cell differential, automated Melissa Wilson NP Work Phone: Start: 08-17-2024 Injection of botulinum toxin Jodie Matthews MD Work Phone: Start: 06-09-2024 Epidural injection o f lumbar spine using fluoroscopic guidance Issa Gonzales Comment on above: L5-S1 Start: 05-27-2024 Complete blood count with white cell differential, automated Melissa Wilson ABSTRACTER Work Phone: Start: 05-11-2024 Injection of botulinum toxin Jodie Matthews MD Work Phone: Start: 03-08-2024 Ct thorax w/o contra st material Rich Magana MD MPH Work Phone: Start: 03-08-2024 PULMONARY FUNCTION TESTING Courtney Brown MD Work Phone: Start: 03-03-2024 Complete blood count with white cell differential, automated Melissa Wilson ABSTRACTER Work Phone: Start: 02-16-2024 PULMONARY FUNCTION TESTING Courtney Brown MD Work Phone: Start: 01-11-2024 Injection of botulinum toxin Jodie Matthews MD Work Phone: Start: 12-29-2023 Epidural injection o f lumbar spine using fluoroscopic guidance Issa Gonzales Comment on above: L5/S1 DUYEN- 80% relie f x 3 weeks then 50% Start: 11-24-2023 Duplex scan of lower limb veins MD Rachel Rayo Work Phone: Start: 11-24-2023 X-ray of left ankle MD Rachel Rayo Work Phone: Start: 10-30-2023 Blood Culture 1 MD Paxton Rayo Work Phone: Start: 10-30-2023 Blood Culture 2 MD Paxton Rayo Work Phone: Start: 10-16-2023 Computed tomography of thoracic spine without contrast MD Rachel Rayo Work Phone: Start: 10-16-2023 CT cervical spine wi thout contrast MD Rachel Rayo Work Phone: Start: 10-16-2023 CT of head without contrast MD Rachel Rayo Work Phone: Start: 10-16-2023 CT of lumbar spine w ithout contrast MD Rachel Rayo Work Phone: Start: 10-12-2023 Injection of botulinum toxin Jodie Matthews MD Work Phone: Start: 07-22-2023 X-ray of both knees MD Rachel Rayo Work Phone: Start: 07-22-2023 Pelvis X-ray MD Rachel Rayo Work Phone: Start: 07-15-2023 Injection of botulinum toxin Jodie Matthews MD Work Phone: Start: 07-08-2023 Epidural injection o f lumbar spine using fluoroscopic guidance Gamar Comment on above: 70% relief Start: 04-15-2023 Injection of botulinum toxin Jodie Matthews MD Work Phone: Start: 02-14-2023 Epidural injection o f lumbar spine using fluoroscopic guidance Gamar Comment on above: Left L5/S1 & S1 TFES I: 75% relief Start: 02-11-2023 TRANSTHORACIC ECHO ( TTE) LAVERN MAGANA Start: 02-11-2023 Echo tthrc r-t 2d w/ wom-mode compl spec&colr d Rich Magana MD MPH Work Phone: Start: 12-24-2022 Injection of nerve r oot of lumbar spine using fluoroscopic guidance Gamar Comment on above: Bilateral L4/L5 TFES I-50% Relief Start: 11-18-2022 Neurobehavioral stat us xm phys/qhp 1st hour Rachel Rayo Work Phone: Start: 10-29-2022 Injection of sacroil iac joint using fluoroscopic guidance Wei Umana Comment on above: Bilateral- 80% relie f Start: 08-18-2022 Follow-up visit Start: 07-14-2022 MRI of lumbar spine with contrast MD Rachel Rayo Work Phone: Start: 05-22-2022 X-ray of lumbar spin e, four views MD Rachel Rayo Work Phone: Start: 05-22-2022 Plain x-ray of pelvi s and lower extremity MD Rachel Rayo Work Phone: Start: 05-19-2022 PSA screening COURTNEY ARIZA Comment on above: Performed By: #### P SAD #### Laboratory [address] [place] [address] Dr. Carey Fisher Start: 04-05-2022 CT of facial bones w ithout contrast MD Rachel Rayo Work Phone: Start: 04-05-2022 CT cervical spine wi thout contrast MD Rachel Rayo Work Phone: Start: 04-05-2022 CT of head without contrast MD Rachel Rayo Work Phone: Start: 01-23-2022 Pelvis X-ray MD Rachel Rayo Work Phone: Start: 01-23-2022 X-ray of both knees MD Rachel Rayo Work Phone: Start: 07-29-2021 Plain chest X-ray MD Frank Rayo Work Phone: Start: 07-29-2021 Pulmonary perfusion study MD Rachel Rayo Work Phone: Start: 09-08-2020 Ct angiography chest w/contrast/noncontrast Mathew LUNA Work Phone: Start: 09-08-2020 Comprehensive metabolic panel Mathew LUNA Work Phone: Start: 09-08-2020 RESPIRATORY PANEL, Harpal SOW, WITH COVID-19 Mathew LUNA Work Phone: Start: 09-08-2020 Ecg routine ecg w/le ast 12 lds w/i&r Mathew LUNA Work Phone: Start: 08-25-2020 Radiologic exam ches t single view J Diya Rader MD Work Phone: Start: 08-25-2020 Ct head/brain w/o co ntrast material J Diya Rader MD Work Phone: Start: 08-25-2020 End: 08-25-2020 Basic metabolic panel calcium total J Diya Rader MD Work Phone: Start: 08-25-2020 Ecg routine ecg w/le ast 12 lds w/i&r J Diya Rader MD Work Phone: Start: 02-14-2020 Peak expiratory flow rate monitoring using diary Courtney Brown Start: 01-02-2020 Antibody screen Comment on above: Performed By: #### R COVD #### [place] [id number] Start: 11-15-2019 Complete PFT w/o ABG Da maia Brown Start: 11-15-2019 Peak expiratory flow rate monitoring using diary Courtney Brown Start: 11-15-2019 Sleep std airflow hr t rate&o2 sat effort unatt Courtney Brown Start: 10-17-2019 Antibody screen Comment on above: Performed By: #### R COVD #### [place] [id number] Start: 10-16-2019 Electrocardiogram Start: 07-15-2019 Radiologic exam chest 2 views Mychal Bautista Work Phone: Start: 05-16-2019 Radiologic exam swal low function contrast study Mychal Bautista MD Work Phone: Start: 04-19-2019 Brncdilat rspse spmt ry pre&post-brncdilat nan Patel MD Work Phone: Start: 04-06-2019 Ct thorax w/contrast material Eliseo Garcia Work Phone: Start: 04-06-2019 Lipid panel Oni Mahajan Work Phone: Start: 04-04-2019 CT Chest without Contrast Courtney Brown Start: 04-01-2019 Level iv surg pathol ogy gross&microscopic exam [place] Start: 04-01-2019 Culture tubercle/oth acid-fast bacilli any isol [place] Start: 04-01-2019 Virus centrifuge enh ncd id imfluor stain ea [place] SANDOVALI Start: 04-01-2019 Virus tiss cul inocu lation cytopathic effect [place] KIRSTIN Start: 04-01-2019 Culture fngi mold/ye ast prsmptv oth xcpt blood [place] SANDOVALI Start: 04-01-2019 Cytopath fl nongyn, sm/fltr [place] Start: 04-01-2019 Smr prim src fluores cent&/afs bct fngi parasit [place] Start: 04-01-2019 Smr prim src fluores cent&/afs bct fngi parasit [place] Work Phone: Start: 03-25-2019 Cul bact xcpt urine blood/stool aerobic isol Eliseo Garcia Work Phone: Start: 03-22-2019 Assay of ammonia Liliana Kristen Kaitlin Work Phone: Start: 03-22-2019 Comprehensive metabolic panel Liliana Madrigal Work Phone: Start: 03-22-2019 Radiologic exam chest 2 views Pa Patel Work Phone: Start: 01-12-2019 Radiologic exam chest 2 views Oni Harpal Maile Work Phone: Start: 12-26-2018 LACTATE, SEPSIS Mo Lopez Work Phone: Start: 12-26-2018 LACTATE, SEPSIS Mo Lopez Work Phone: Start: 12-26-2018 Ecg routine ecg w/le ast 12 lds w/i&r Anson Lyle Work Phone: Start: 12-26-2018 Radiologic exam ches t single view Anson Lyle Work Phone: Start: 12-26-2018 Assay of troponin quantitative Anson Lyle Work Phone: Start: 12-26-2018 Basic metabolic pane l calcium total Anson Reneese Work Phone: Start: 12-26-2018 Blood count complete auto&auto difrntl wbc Anson Valdo Work Phone: Start: 12-26-2018 Natriuretic peptide Tyl er Valdo Work Phone: Start: 12-26-2018 NASAL CANNULA OXYGEN Ty ler Valdo Work Phone: Start: 12-21-2018 Ct abdomen & pelvis w/contrast material Ruth Sofi Work Phone: Start: 12-21-2018 Blood count complete auto&auto difrntl wbc Ruth Sofi Work Phone: Start: 12-21-2018 Comprehensive metabolic panel Ruth Sofi Work Phone: Start: 12-21-2018 Lactate dehydrogenase ldh Ruthadán Diazi Work Phone: Start: 07-23-2018 Cul bact xcpt urine blood/stool aerobic isol Courtney Brown Start: 06-09-2014 Laboratory test resu lt abnormal Rachel Rayo Other Bronchoscopy Rachel Rayo Work Phone: Colonoscopy Rachel Rayo Work Phone: History of Knee Surgery Courtney Brown Comment on above: multiple surgeries r ight and left totally 16; History of Laminectomy Lumbar Courtney Brown History of operative procedure on knee Wei Umana Comment on above: 2005 History of release o f entrapment of peripheral nerve Wei Umana Comment on above: Dr Jiménez - 2020 Insertion of hip prosthesis Barbara Duron lamenectomy L4-L5 Elizabeth [place] TERS Operation on fracture Courtney bravo MD Operative procedure on spinal structure Courtney Brown MD Procedure on femur Elizabeth W ATERS Prosthetic arthropla sty of the hip Courtney Brown MD Screening for malign ant neoplasm of prostate Rachel Rayo Other Total replacement of hip Kelly Rayo Work Phone: Plan of Treatment Date Care Activity Detail Author Start: 04-05-2032 DTaP/Tdap/Td Vaccine s (2 - Td or Tdap) DTaP/Tdap/Td Vaccines (2 - Td or Tdap) [facility] Start: 02-17-2025 End: 02-17-2025 Telemedicine consultation with patient 02/17/2025 11:30 AM EDT Telemedicine [facility] [address] [facility] [address] [place] [address] Cole Quintana APRN-METALLOGRAPHIC TECHNICIAN [address] [facility] [address] [place] [address] [facility] Start: 01-02-2025 Influenza vaccination Influenz a Vaccine (Season Ended) [facility] Start: 12-19-2024 End: 12-19-2024 Patient encounter procedure 12/19/2024 2:45 PM EDT Office Visit [facility] [address] [facility] [address] [place] [phone] Courtney Brown MD [address] [facility], [facility] [address] [place] [address] [facility] Start: 11-09-2024 End: 11-09-2024 Patient encounter procedure 11/09/2024 11:20 AM EDT Procedure Visit [facility] [place] [phone] Jodie Matthews MD [address] [place] [address] [facility] Start: 11-07-2024 End: 11-07-2024 Patient encounter procedure 11/07/2024 11:30 AM EDT Procedure Visit [facility] [place] [phone] Jodie Matthews MD [address] [place] [address] [facility] Start: 09-13-2024 End: 09-13-2024 Patient encounter procedure [facility] Start: 09-12-2024 End: 09-12-2024 Patient encounter procedure [facility] Start: 08-10-2024 End: 08-10-2024 Patient encounter procedure 08/10/2024 12:00 PM EDT Procedure Visit [facility] [address] [place] [address] Jodie Matthews MD [address] [place] [address] [facility] Start: 08-03-2024 End: 08-03-2024 Telemedicine consultation with patient 08/03/2024 1:30 PM EDT Telemedicine [facility] [address] [facility] [address] [place] [address] Cole Quintana, DELIVERY PROFESSIONAL-METALLOGRAPHIC TECHNICIAN [address] [facility], [facility] [address] [place] [address] [facility] Start: 07-25-2024 End: 07-25-2025 Complete Pulmonary Function Test Pre/Post Bronchodilator (Spirometry Pre/Post/DLCO/Lung Volumes) Complete Pulmonary Function Test Pre/Post Bronchodilator (Spirometry Pre/Post/DLCO/Lung Volumes) PFT Routine ILD (interstitial lung disease) (Multi) Expected: 07/25/2024 (Approximate), Expires: 07/25/2025 [facility] Service Area Work Phone: Comment on above: Expected: 07/25/2024 (Approximate), Expires: 07/25/2025 Start: 07-25-2024 End: 07-25-2025 Pulmonary Stress Test (6 Min. Walk) Pulmonary Stress Test (6 Min. Walk) PFT Routine ILD (interstitial lung disease) (Multi) Expected: 07/25/2024 (Approximate), Expires: 07/25/2025 [facility] Work Phone: Comment on above: Expected: 07/25/2024 (Approximate), Expires: 07/25/2025 Start: 07-12-2024 End: 07-12-2024 Patient encounter procedure 07/12/2024 11:00 AM EDT Office Visit [facility] [address] [place] [phone] Rich Magana MD MPH [address] [place], [place] [phone] [facility] Gar[facility]ailion Start: 06-27-2024 End: 06-27-2024 Patient encounter procedure 06/27/2024 10:00 AM EST Office Visit [facility] [address] [place] [phone] Jessica Moore, DELIVERY PROFESSIONAL-METALLOGRAPHIC TECHNICIAN [address] [place] [address] [facility] Start: 06-21-2024 End: 06-21-2024 Patient encounter procedure 06/21/2024 9:45 AM EST Office Visit [facility] Garzadan[facility] [address] [place] [phone] Rich Magana MD MPH [address] [place] [address] [facility]a Garzailion Start: 06-14-2024 End: 06-14-2024 Patient encounter procedure 06/14/2024 5:00 PM EST Office Visit [facility] [address] [place] [phone] Courtney Brown MD [address] [facility], [address] [place], [place] [phone] [facility] Start: 06-02-2024 End: 06-02-2024 Patient encounter procedure 06/02/2024 1:00 PM EST Office Visit [facility] [address] [place] [phone] Jessica Moore, DELIVERY PROFESSIONAL-METALLOGRAPHIC TECHNICIAN [address] [place] [address] [facility] Start: 05-23-2024 End: 05-23-2024 Patient encounter procedure 05/23/2024 3:15 PM EST Office Visit [facility] [address] [facility] [address] [place] [phone] Courtney Brown MD [address] [facility], [facility] [address] [place] [address] [facility] Start: 05-16-2024 End: 05-16-2024 Patient encounter procedure 05/16/2024 8:30 AM EST Office Visit [facility] [address] [place] [phone] Cole Quintana, DELIVERY PROFESSIONAL-METALLOGRAPHIC TECHNICIAN [address] [facility], [facility] [address] [place] [address] [facility] Start: 04-20-2024 End: 04-20-2024 Patient encounter procedure 04/20/2024 10:00 AM EST Procedure Visit [facility] [address] [place] [phone] Jodie Matthews MD [address] [place] [address] [facility] Start: 04-13-2024 End: 04-13-2024 Patient encounter procedure 04/13/2024 10:30 AM EST Office Visit [facility] Morgan [address] [place] [address] Rich Magana MD MPH [address] [place] [address] Isabela Mitch [facility] Start: 04-06-2024 Lipid screen Lipid screen [place] Start: 03-21-2024 End: 03-21-2024 Patient encounter procedure 03/21/2024 1:00 PM EST Office Visit [facility] [address] [place] [address] Jessica Moore, DELIVERY PROFESSIONAL-METALLOGRAPHIC TECHNICIAN [address] [place], [place] [phone] [facility] Start: 03-08-2024 End: 03-08-2024 Patient encounter procedure 03/08/2024 10:45 AM EST Appointment [facility] [address] [place] [phone] [facility] Start: 03-08-2024 End: 03-08-2024 Patient encounter procedure 03/08/2024 9:30 AM EST Office Visit [facility] [address] [place] [address] Courtney Brown MD [address] [facility], [facility] [address] [place] [address] [facility] Start: 03-07-2024 End: 03-07-2024 Patient encounter procedure 03/07/2024 2:30 PM EST Office Visit [facility] [address] [place] [address] Jodie Matthews MD [address] [place] [address] [facility] Start: 02-25-2024 End: 02-25-2024 Patient encounter procedure 02/25/2024 8:30 AM EDT Office Visit [facility] [address] [place] [phone] Cole Quintana APRN-METALLOGRAPHIC TECHNICIAN [address] [facility], [address] [place] [address] [facility] Start: 02-16-2024 End: 02-16-2024 Patient encounter procedure 02/16/2024 10:00 AM EDT Office Visit [facility] [address] [facility] [address] [place] [phone] Courtney Brown MD [address] [facility], [address] [place] [address] [facility] Start: 02-03-2024 End: 02-03-2024 Patient encounter procedure 02/03/2024 1:00 PM EDT Office Visit [facility] [address] [facility] [address] [place] [phone] Gricelda Rivera MD [address] [place] [address] Rd [facility] [address] [place] [address] [facility] Start: 01-28-2024 End: 01-28-2024 Patient encounter procedure 01/28/2024 10:30 AM EDT Office Visit [facility] [address] [place] [address] Cole Quintana, DELIVERY PROFESSIONAL-METALLOGRAPHIC TECHNICIAN [address] [facility], [address] [place] [address] [facility] Start: 01-11-2024 End: 01-11-2024 Patient encounter procedure 01/11/2024 2:30 PM EDT Procedure Visit [facility] [address] [place] [address] Jodie Matthews MD [address] [place] [address] [facility] Start: 01-03-2024 Influenza vaccination [facility] Start: 12-07-2023 End: 12-07-2023 Patient encounter procedure 12/07/2023 1:30 PM EDT Office Visit [facility] [address] [place] [phone] Jodie Matthews MD [address] [place] [address] [facility] Start: 11-30-2023 End: 11-30-2023 Patient encounter procedure 11/30/2023 3:00 PM EDT Office Visit [facility] [address] [place] [address] Courtney Brown MD [address] [facility], [address] [place] [address] [facility] Start: 11-24-2023 Duplex scan of lower limb veins US venous duplex LE BI [facility] Start: 11-24-2023 US Lower extremity v ein - bilateral [facility] Start: 11-24-2023 X-ray of left ankle XR ankle LT min 3V* [facility] Start: 11-24-2023 XR Ankle - left GE 3 Views [facility] Start: 11-12-2023 Lipid screen Lipid screen [place]- [place], [place] Start: 11-09-2023 End: 11-09-2023 Patient encounter procedure 11/09/2023 2:30 PM EDT Office Visit [facility] [address] [place] [address] [address] [place] [phone] [place] [address] [address] [place] [address] [facility] Start: 10-16-2023 Computed tomography of thoracic spine without contrast CT thoracic spine wo [facility] Start: 10-16-2023 CT cervical spine without contrast CT cervical spine wo [facility] Start: 10-16-2023 CT Cervical spine WO [facility] Start: 10-16-2023 CT Lumbar spine WO [facility] Start: 10-16-2023 CT of head without contrast CT head/brain wo [facility] Start: 10-16-2023 CT of lumbar spine without contrast CT lumbar spine wo [facility] Start: 10-16-2023 CT Thoracic spine WO [facility] Start: 10-16-2023 CT Unspecified body region WO [facility] Start: 10-12-2023 End: 10-12-2023 Patient encounter procedure 10/12/2023 3:30 PM EDT Procedure Visit [facility] [address] [place] [address] Jodie Matthews MD [address] [place] [address] [facility] Start: 09-10-2023 End: 09-10-2023 Patient encounter procedure 09/10/2023 11:00 AM EDT Office Visit [facility] [address] [place] [address] Jodie Matthews MD [address] [place] [address] [facility] Start: 09-07-2023 End: 09-07-2023 Patient encounter procedure 09/07/2023 3:00 PM EDT Office Visit [facility] [address] [place] [address] Courtney Brown MD [address] [facility], [address] [place] [address] [facility] Start: 07-22-2023 X-ray of both knees XR knee BI 4V [facility] Start: 07-22-2023 XR Knee - bilateral 4 Views [facility] Start: 07-22-2023 Pelvis X-ray XR pelvis 1-2V [facility] Start: 07-22-2023 XR Pelvis 1 or 2 Views [facility] Start: 07-15-2023 End: 07-15-2023 Patient encounter procedure 07/15/2023 11:20 AM EDT Procedure Visit [facility] [address] [place] [phone] Jodie Matthews MD [address] [place] [address] [facility] Start: 06-22-2023 End: 06-22-2023 Patient encounter procedure 06/22/2023 3:00 PM EST Office Visit [facility] [address] [place] [address] Jodie Matthews MD [address] [place], [place] [phone] [facility] Start: 05-21-2023 End: 05-21-2023 Patient encounter procedure 05/21/2023 9:00 AM EST Office Visit [facility] [address] [place] [address] Jodie Matthews MD [address] [place] [phone] [facility] Start: 05-12-2023 End: 05-12-2023 Patient encounter procedure 05/12/2023 10:45 AM EST Office Visit [facility] [address] [facility] [address] [place] [address] Courtney Brown MD [address] [facility], [facility] [address] [place] [phone] [facility] Start: 04-15-2023 End: 04-15-2023 Patient encounter procedure 04/15/2023 11:20 AM EST Procedure Visit [facility] [address] [facility] [address] [place] [address] Jodie Matthews MD [address] [facility] [address] [place] [address] [facility] Start: 04-08-2023 End: 04-08-2024 25-hydroxyvitamin D3 [Mass/volume] in Serum or Plasma Vitamin D 25-Hydroxy,Total (for eval of Vitamin D levels) Lab Routine Fatigue, unspecified type Vitamin D deficiency, unspecified Expected: 04/08/2023 (Approximate), Expires: 04/08/2024 [facility] Work Phone: Comment on above: Expected: 04/08/2023 (Approximate), Expires: 04/08/2024 Start: 04-08-2023 End: 04-08-2024 CBC W Auto Differential panel - Blood CBC and Auto Differential Lab Routine Fatigue, unspecified type Expected: 04/08/2023 (Approximate), Expires: 04/08/2024 [facility] Service Area Work Phone: Comment on above: Expected: 04/08/2023 (Approximate), Expires: 04/08/2024 Start: 04-08-2023 End: 04-08-2024 Chlamydia Antibodies IgM Chlamydia Antibodies IgM Lab Routine Fatigue, unspecified type Expected: 04/08/2023 (Approximate), Expires: 04/08/2024 [facility] Work Phone: Comment on above: Expected: 04/08/2023 (Approximate), Expires: 04/08/2024 Start: 04-08-2023 End: 04-08-2024 Cobalamin (Vitamin B12) [Mass/volume] in Serum or Plasma Vitamin B12 Lab Routine Fatigue, unspecified type Expected: 04/08/2023 (Approximate), Expires: 04/08/2024 [facility] Work Phone: Comment on above: Expected: 04/08/2023 (Approximate), Expires: 04/08/2024 Start: 04-08-2023 End: 04-08-2024 Comprehensive metabolic 2000 panel - Serum or Plasma Comprehensive Metabolic Panel Lab Routine Fatigue, unspecified type Expected: 04/08/2023 (Approximate), Expires: 04/08/2024 [facility] Work Phone: Comment on above: Expected: 04/08/2023 (Approximate), Expires: 04/08/2024 Start: 04-08-2023 End: 04-08-2024 Cytomegalovirus IgM Ab [Units/volume] in Serum or Plasma Cytomegalovirus antibody, IgM Lab Routine Fatigue, unspecified type Expected: 04/08/2023 (Approximate), Expires: 04/08/2024 [facility] Work Phone: Comment on above: Expected: 04/08/2023 (Approximate), Expires: 04/08/2024 Start: 04-08-2023 End: 04-08-2024 Zuleyma-Ho Virus Antibody Panel Zuleyma-Ho Virus Antibody Panel Lab Routine Fatigue, unspecified type Expected: 04/08/2023 (Approximate), Expires: 04/08/2024 [facility] Work Phone: Comment on above: Expected: 04/08/2023 (Approximate), Expires: 04/08/2024 Start: 04-08-2023 End: 04-08-2024 IgG [Mass/volume] in Serum or Plasma IgG Lab Routine Fatigue, unspecified type Expected: 04/08/2023 (Approximate), Expires: 04/08/2024 [facility] Work Phone: Comment on above: Expected: 04/08/2023 (Approximate), Expires: 04/08/2024 Start: 04-08-2023 End: 04-08-2024 Mycoplasma pneumoniae IgM Ab [Units/volume] in Serum by Immunoassay Mycoplasma Pneumoniae Antibody, IgM Lab Routine Fatigue, unspecified type Expected: 04/08/2023 (Approximate), Expires: 04/08/2024 [facility] Work Phone: Comment on above: Expected: 04/08/2023 (Approximate), Expires: 04/08/2024 Start: 04-08-2023 End: 04-08-2024 TSH with reflex to Free T4 if abnormal TSH with reflex to Free T4 if abnormal Lab Routine Fatigue, unspecified type Expected: 04/08/2023 (Approximate), Expires: 04/08/2024 [facility] Work Phone: Comment on above: Expected: 04/08/2023 (Approximate), Expires: 04/08/2024 Start: 04-08-2023 End: 04-08-2024 Urinalysis complete panel - Urine Urinalysis with Reflex Microscopic Lab Routine Fatigue, unspecified type Expected: 04/08/2023 (Approximate), Expires: 04/08/2024 [facility] Work Phone: Comment on above: Expected: 04/08/2023 (Approximate), Expires: 04/08/2024 Start: 04-08-2023 End: 04-08-2024 Zinc [Mass/volume] in Serum or Plasma Zinc, Serum or Plasma Lab Routine Fatigue, unspecified type Expected: 04/08/2023 (Approximate), Expires: 04/08/2024 [facility] Work Phone: Comment on above: Expected: 04/08/2023 (Approximate), Expires: 04/08/2024 Start: 03-24-2023 End: 03-24-2023 Patient encounter procedure 03/24/2023 1:00 PM EST Procedure Visit [facility] [address] [place] [phone] Jodie Matthews MD [address] [place] [address] [facility] Start: 02-16-2023 Patient encounter procedure FUVCFATUMA, Provider: [id number] [facility] RM1,[id number], Status: Pen, Time: 10:30 AM UE-Xdaztgrat-Jsrikx 170 DO Work Phone: Start: 02-09-2023 FUV, Provider: Courtney Brown, Status: Pen, Time: 11:00 AM FUV, Provider: Courtney Brown, Status: Pen, Time: 11:00 AM KT-Zgrwwlhldd-Wuamx [address] DO Work Phone: Start: 02-02-2023 FUV, Provider: Rich Magana, Status: Pen, Time: 12:45 PM FUV, Provider: Rich Magana, Status: Pen, Time: 12:45 PM SG-Tzoiiwfwwo-Ihgjo a Work Phone: Start: 01-27-2023 FUV, Provider: Rich Magana, Status: Pen, Time: 11:45 AM FUV, Provider: Rich Magana, Status: Pen, Time: 11:45 AM AZ-Pobfqming-Emocde 170 DO Work Phone: Start: 01-20-2023 BOTOX, Provider: Jodie Matthews, Status: Pen, Time: 11:00 AM BOTOX, Provider: Jodie Matthews, Status: Pen, Time: 11:00 AM MP-Pulmonary Medicine-[place] [address] [place] Work Phone: Start: 01-02-2023 Influenza vaccination Influenza Vacc ine (#1) [facility] Start: 12-24-2022 FUVGENERAL, Provider : Jodie Matthews, Status: Pen, Time: 11:30 AM FUVGENERAL, Provider: Jodie Matthews, Status: Pen, Time: 11:30 AM GR-Nbbvxlyfn-Brvtxc 170 DO Work Phone: Start: 11-26-2022 FUVGENERAL, Provider : Jodie Matthews, Status: Pen, Time: 11:00 AM FUVGENERAL, Provider: Jodie Matthews, Status: Pen, Time: 11:00 AM MP-Pulmonary Medicine-[place] [address] [place] Work Phone: Start: 11-12-2022 Patient encounter procedure GINO, Provider: DENISHAM09 [facility] RM1,[id number], Status: Pen, Time: 8:00 AM [facility] [address] [place] Work Phone: Start: 11-11-2022 FUV, Provider: Rich Magana, Status: Pen, Time: 11:00 AM FUV, Provider: Rich Magana, Status: Pen, Time: 11:00 AM MP-Pulmonary Medicine-[facility] 200 [place] Work Phone: Start: 11-03-2022 FUV, Provider: Courtney Brown, Status: Pen, Time: 10:45 AM FUV, Provider: Courtney Brown, Status: Pen, Time: 10:45 AM EF-Jecyopasme-Ytxuh a Work Phone: Start: 10-20-2022 BOTOX, Provider: Jodie Matthews, Status: Pen, Time: 11:30 AM BOTOX, Provider: Jodie Matthews, Status: Pen, Time: 11:30 AM JT-Htjjnixkns-Tjobl a Work Phone: Start: 10-15-2022 BOTOX, Provider: Jodie Matthews, Status: Pen, Time: 2:30 PM BOTOX, Provider: Jodie Matthews, Status: Pen, Time: 2:30 PM LN-Gznqgaeumi-Rwiih a Work Phone: Start: 09-09-2022 FUV, Provider: Courtney Brown, Status: Pen, Time: 12:00 PM FUV, Provider: Courtney Brown, Status: Pen, Time: 12:00 PM [facility] [address] [place] Work Phone: Start: 09-08-2022 FUV, Provider: Rich Magana, Status: Pen, Time: 10:00 AM FUV, Provider: Rich Magana, Status: Pen, Time: 10:00 AM [facility] [address] [place] Work Phone: Start: 09-03-2022 FUVGENERAL, Provider : Jodie Matthews, Status: Pen, Time: 10:30 AM FUVGENERAL, Provider: Jodie Matthews, Status: Pen, Time: 10:30 AM OC-Swtramdrxl-Rxnlm a Work Phone: Start: 08-29-2022 Patient encounter procedure FUVCOVID, Provider: KEYUR [facility] RM1,[id number], Status: Pen, Time: 8:30 AM [facility] 130 [place] Work Phone: Start: 08-18-2022 FUV, Provider: Courtney Brown, Status: Pen, Time: 10:45 AM FUV, Provider: Courtney Brown, Status: Pen, Time: 10:45 AM BT-Vcugrgcnay-Tasxd [address] DO Work Phone: Start: 08-13-2022 FUV, Provider: Rich Magana, Status: Pen, Time: 10:45 AM FUV, Provider: Rich Magana, Status: Pen, Time: 10:45 AM BO-Ucuxuttuyc-Arkhw [address] DO Work Phone: Start: 07-16-2022 BOTOX, Provider: Jodie Matthews, Status: Pen, Time: 3:00 PM BOTOX, Provider: Jodie Matthews, Status: Pen, Time: 3:00 PM WM-Opqefaqoc-Saged 204 Work Phone: Start: 07-09-2022 FUV, Provider: Rich Magana, Status: Pen, Time: 10:00 AM FUV, Provider: Rich Magana, Status: Pen, Time: 10:00 AM [facility] [address] [place] Work Phone: Start: 06-16-2022 FUV, Provider: Courtney Brown, Status: Pen, Time: 10:45 AM FUV, Provider: Courtney Brown, Status: Pen, Time: 10:45 AM [facility] 200 [place] Work Phone: Start: 06-02-2022 FUVGENERAL, Provider : Jodie Matthews, Status: Pen, Time: 3:30 PM FUVGENERAL, Provider: Jodie Matthews, Status: Pen, Time: 3:30 PM BS-Efywdtarq-Cpodf 204 Work Phone: Start: 06-02-2022 Patient encounter procedure FUVCOVID, [facility],[id number], Status: Pen, Time: 10:30 AM -Gastroenterology -[place] SJW 450 DO Work Phone: Start: 05-26-2022 Patient encounter procedure FUVCOVID, Provider: KEYUR [facility] RM1,[id number], Status: Pen, Time: 1:30 PM PJ-Jocgkvlpip-Dkrvz a Work Phone: Start: 05-12-2022 EGDANS, Provider: Park Byrd, Status: Pen, Time: 2:00 PM EGDANS, Provider: Park Byrd, Status: Pen, Time: 2:00 PM OL-Xtpgzfmag-Xyygd 204 Work Phone: Start: 04-21-2022 EGDANS, Provider: Park Byrd, Status: Pen, Time: 1:30 PM EGDANS, Provider: Park Byrd, Status: Pen, Time: 1:30 PM MP-Pulmonary Medicine-[place] [address] [place] Work Phone: Start: 04-16-2022 BOTOX, Provider: Jodie Matthews, Status: Pen, Time: 2:30 PM BOTOX, Provider: Jodie Matthews, Status: Pen, Time: 2:30 PM GB-Buxadtshv-Rwqwvj 170 DO Work Phone: Start: 04-14-2022 Diabetes screen Diabetes screen [facility] Work Phone: Start: 04-14-2022 FUV, Provider: Courtney Brown, Status: Pen, Time: 11:00 AM FUV, Provider: Courtney Brown, Status: Pen, Time: 11:00 AM PR-Cwjmcaiebe-Cqacp [address]100 DO Work Phone: Start: 04-11-2022 [facility] Start: 04-07-2022 [facility] Start: 04-07-2022 FUV, Provider: Rich Magana, Status: Pen, Time: 11:45 AM FUV, Provider: Rich Magana, Status: Pen, Time: 11:45 AM MG-Gastroenterology -[place] SJW 450 DO Work Phone: Start: 04-05-2022 CT Facial bones WO contrast [facility] Start: 04-05-2022 CT of facial bones without contrast CT facial bones wo con [facility] Start: 04-05-2022 CT cervical spine without contrast CT cervical spine wo [facility] Start: 04-05-2022 CT Cervical spine WO contrast [facility] Start: 04-05-2022 CT of head without contrast CT head/brain wo [facility] Start: 04-05-2022 CT Unspecified body region WO contrast [facility] Start: 04-03-2022 [facility] Start: 04-01-2022 FUV, Provider: Rich Magana, Status: Pen, Time: 11:30 AM FUV, Provider: Rich Magana, Status: Pen, Time: 11:30 AM WE-Duiifigje-Ekkxtg 170 DO Work Phone: Start: 04-01-2022 [facility] Start: 03-26-2022 [facility] Start: 03-18-2022 [facility] Start: 02-26-2022 FUVGENERAL, Provider : Jodie Matthews, Status: Pen, Time: 2:30 PM FUVGENERAL, Provider: Jodie Matthews, Status: Pen, Time: 2:30 PM OR-Ifmrxkcgm-Gwdlbq 170 DO Work Phone: Start: 02-26-2022 FUVGENERAL, Provider : Jodie Matthews, Status: Pen, Time: 9:30 AM FUVGENERAL, Provider: Jodie Matthews, Status: Pen, Time: 9:30 AM MP-Pulmonary Medicine-[place] [address] [place] Work Phone: Start: 02-24-2022 FUV, Provider: Courtney Brown, Status: Pen, Time: 11:00 AM FUV, Provider: Courtney Brown, Status: Pen, Time: 11:00 AM RQ-Qjewsfdsoh-Nhrpt [place]zer 2100 DO Work Phone: Start: 02-14-2022 Patient encounter procedure VIRFUVHOME, Provider: [facility]UR [facility] RM[facility],[id number], Status: Pen, Time: 11:30 AM MG-Pulm Sleep-[place] 130 [place] Work Phone: Start: 02-12-2022 FUV, Provider: Rich Magana, Status: Pen, Time: 10:15 AM FUV, Provider: Rich Magana, Status: Pen, Time: 10:15 AM MP-Pulmonary Medicine-[place] [address] [place] Work Phone: Start: 02-11-2022 FUV, Provider: Courtney Brown, Status: Pen, Time: 11:45 AM FUV, Provider: Courtney Brown, Status: Pen, Time: 11:45 AM QF-Qrripkjdml-Szszk ebenezer 2100 DO Work Phone: Start: 02-06-2022 NPV, Provider: Monserrat Medrano, Status: Pen, Time: 2:30 PM NPV, Provider: Monserrat Medrano, Status: Pen, Time: 2:30 PM VU-Tktomzctkc-Ifots ebenezer 2100 DO Work Phone: Start: 02-03-2022 Patient encounter procedure VIRFUVHOME, Provider: [facility] RM[facility],[id number], Status: Pen, Time: 11:30 AM MM-Dditwgvnid-Cfblu ebenezer 2100 DO Work Phone: Start: 01-31-2022 Patient encounter procedure VIRFUVHOME, Provider: [facility] RM1,[id number], Status: Pen, Time: 11:30 AM MS-Oudyjjlmt-Tpxatp 170 DO Work Phone: Start: 01-29-2022 [facility] Start: 01-29-2022 [facility] Start: 01-24-2022 [facility] Start: 01-24-2022 [facility] Start: 01-22-2022 [facility] Start: 01-02-2022 NPV, Provider: Fernando Rivera, Status: Pen, Time: 1:00 PM NPV, Provider: Fernando Rivera, Status: Pen, Time: 1:00 PM AN-Xehtjdbubm-Adiwk ebenezer 2100 DO Work Phone: Start: 12-17-2021 BOTOX, Provider: Jodie Matthews, Status: Pen, Time: 1:30 PM BOTOX, Provider: Jodie Matthews, Status: Pen, Time: 1:30 PM MP-Pulmonary Medicine-[place] [address] [place] Work Phone: Start: 12-17-2021 INJECTION, Provider: MAIL [id number], Status: Pen, Time: 11:45 AM INJECTION, Provider: MAIL [id number], Status: Pen, Time: 11:45 AM CS-Cefrttiitf-Tmsac ebenezer 2100 DO Work Phone: Start: 12-16-2021 FUV, Provider: Rich Magana, Status: Pen, Time: 10:00 AM FUV, Provider: Rich Magana, Status: Pen, Time: 10:00 AM WV-Slpqbcdmmf-Rsrrb ebenezer 2100 DO Work Phone: Start: 12-10-2021 Pneumococcal vaccination Pneumococcal Vaccine (3 of 3 - PCV) [facility] Start: 12-10-2021 Pneumococcal Vaccine : Pediatrics (0 to 5 Years) and At-Risk Patients (6 to 64 Years) (3 - PCV) Pneumococcal Vaccine: Pediatrics (0 to 5 Years) and At-Risk Patients (6 to 64 Years) (3 - PCV) [facility] Start: 12-10-2021 Pneumococcal Vaccine : Pediatrics (0 to 5 Years) and At-Risk Patients (6 to 64 Years) (3 of 3 - PCV) Pneumococcal Vaccine: Pediatrics (0 to 5 Years) and At-Risk Patients (6 to 64 Years) (3 of 3 - PCV) [facility] Start: 11-29-2021 FUV, Provider: Courtney Brown, Status: Pen, Time: 9:45 AM FUV, Provider: Courtney Brown, Status: Pen, Time: 9:45 AM MP-Pulmonary Medicine-[place] [address] [place] Work Phone: Start: 11-15-2021 VIRNPVBEBETOE, Provider : Tom Bates, Status: Pen, Time: 10:00 AM VIRNPVHOME, Provider: Tom Bates, Status: Pen, Time: 10:00 AM RY-Swdublkpu-Vghwcx 170 DO Work Phone: Start: 11-13-2021 NPVOPTOM, Provider: Kandice Mccauley, Status: Pen, Time: 1:00 PM NPVOPTOM, Provider: Kandice Mccauley, Status: Pen, Time: 1:00 PM HO-Grllctero-Kzfupj 170 DO Work Phone: Start: 11-13-2021 FUV, Provider: Rich Magana, Status: Pen, Time: 10:30 AM FUV, Provider: Rich Magana, Status: Pen, Time: 10:30 AM MP-Pulmonary Medicine-[place] [address] [place] Work Phone: Start: 11-06-2021 FUVGENERAL, Provider : Jodie Matthews, Status: Pen, Time: 1:30 PM FUVGENERAL, Provider: Jodie Matthews, Status: Pen, Time: 1:30 PM MP-Pulmonary Medicine-[place] [address] [place] Work Phone: Start: 11-05-2021 FUVGENERAL, Provider : Jacki Dee, Status: Pen, Time: 10:30 AM FUVGENERAL, Provider: Jacki Dee, Status: Pen, Time: 10:30 AM XB-Liubmvcvbo-Emilo a Work Phone: Start: 11-05-2021 FUVGENERAL, Provider : Jacki Alanis, Status: Pen, Time: 10:30 AM FUVGENERAL, Provider: Jacki Alanis, Status: Pen, Time: 10:30 AM WI-Zoifdwpxg-Esasi 204 Work Phone: Start: 11-05-2021 NPVOPTOM, Provider: Kandice Mccauley, Status: Pen, Time: 9:30 AM NPVOPTOM, Provider: Kandice Mccauley, Status: Pen, Time: 9:30 AM NS-Jnyslnrkyb-Ivrfh ebenezer 2100 DO Work Phone: Start: 11-01-2021 NPVACCESS, Provider: Tom Bates, Status: Pen, Time: 11:00 AM NPVACCESS, Provider: Tom Bates, Status: Pen, Time: 11:00 AM DX-Shfdsdsoje-Pmxkx ebenezer 2100 DO Work Phone: Start: 10-28-2021 FUV, Provider: Courtney Brown, Status: Pen, Time: 11:00 AM FUV, Provider: Courtney Brown, Status: Pen, Time: 11:00 AM XO-Lpjqjehqdm-Delyu ebenezer 2100 DO Work Phone: Start: 10-24-2021 AUTONOMIC, Provider: AUTO-CHAGRIN,NEURODIAG, Status: Pen, Time: 9:00 AM AUTONOMIC, Provider: AUTO-CHAGRIN,NEURODIAG, Status: Pen, Time: 9:00 AM DK-Hxgqlbdmgh-Vsdhm ebenezer 2100 DO Work Phone: Start: 10-22-2021 INJECTION, Provider: MAIL EXAMINERJASS SELF, Status: Pen, Time: 4:00 PM INJECTION, Provider: MAIL EXAMINERJASS, Status: Pen, Time: 4:00 PM VM-Rmkfajtdh-Foafci 170 DO Work Phone: Start: 10-17-2021 FUVGENERAL, Provider : Mathew Miller, Status: Pen, Time: 10:30 AM FUVGENERAL, Provider: Mathew Miller, Status: Pen, Time: 10:30 AM MG-Pulm Sleep-[place] [address] [place] Work Phone: Start: 10-15-2021 INJECTION, Provider: MAIL EXAMINERJASS SELF, Status: Pen, Time: 11:45 AM INJECTION, Provider: MAIL EXAMINER,[id number], Status: Pen, Time: 11:45 AM TU-Rnawwvooqz-Kbfoe ebenezer 2100 DO Work Phone: Start: 10-03-2021 AUTONOMIC, Provider: AUTO-CHAGRIN,NEURODIAG, Status: Pen, Time: 1:00 PM AUTONOMIC, Provider: AUTO-CHAGRIN,NEURODIAG, Status: Pen, Time: 1:00 PM IW-Eegtjywxu-Vkjmas 170 DO Work Phone: Start: 09-25-2021 FUV, Provider: [place], Status: Pen, Time: 9:20 AM FUV, Provider: [place], Status: Pen, Time: 9:20 AM MG-Pulm Sleep-[place] [address] [place] Work Phone: Start: 09-24-2021 STRESS NUC, Provider : ELSY HHVI NUCLEAR 01,[id number], Status: Pen, Time: 8:00 AM STRESS NUC, Provider: ELSY HHVI NUCLEAR 01,[id number], Status: Pen, Time: 8:00 AM JW-Nxpzapbuhp-Cjoqv ebenezer 2100 DO Work Phone: Start: 09-18-2021 NPVOPTOM, Provider: Kandice Mccauley, Status: Pen, Time: 10:15 AM NPVOPTOM, Provider: Kandice Mccauley, Status: Pen, Time: 10:15 AM MP-[facility] Heart-[place] 250 DO Work Phone: Start: 09-16-2021 BOTOX, Provider: Jodie Matthews, Status: Pen, Time: 2:30 PM BOTOX, Provider: Jodie Matthews, Status: Pen, Time: 2:30 PM SA-Ynntspwfvc-Vonlx a Work Phone: Start: 09-16-2021 FUV, Provider: Rich Magana, Status: Pen, Time: 9:15 AM FUV, Provider: Rich Magana, Status: Pen, Time: 9:15 AM QI-Atzezbhdzd-Vdedh ebenezer 2100 DO Work Phone: Start: 09-12-2021 AUTONOMIC, Provider: AUTO-CHAGRIN,NEURODIAG, Status: Pen, Time: 1:00 PM AUTONOMIC, Provider: AUTO-CHAGRIN,NEURODIAG, Status: Pen, Time: 1:00 PM MG-Pulm Sleep-[place] [address] [place] Work Phone: Start: 09-12-2021 FUV, Provider: [place], Status: Pen, Time: 9:50 AM FUV, Provider: [place], Status: Pen, Time: 9:50 AM BB-Zjcupmncyx-Uhjpy a Work Phone: Start: 09-11-2021 STRESS NUC, Provider : ELSY HHVI NUCLEAR 01,[id number], Status: Pen, Time: 8:00 AM STRESS NUC, Provider: ELSY HHVI NUCLEAR 01,[id number], Status: Pen, Time: 8:00 AM MG-Pulm Sleep-[place] [address] [place] Work Phone: Start: 09-08-2021 Creatinine measurement Creatinine mo nitoring [facility] Work Phone: Start: 09-08-2021 Potassium monitoring Potassium monit oring [facility] Work Phone: Start: 09-02-2021 Patient encounter procedure FUVCOVID, Provider: [facility] RM1,[id number], Status: Pen, Time: 2:00 PM [facility] [address] [place] Work Phone: Start: 08-31-2021 COVID-19 Vaccine (3 - Pfizer risk series) COVID-19 Vaccine (3 - Pfizer risk series) [facility] Start: 08-29-2021 AUTONOMIC, Provider: AUTO-CHAGRIN,NEURODIAG, Status: Pen, Time: 9:00 AM AUTONOMIC, Provider: AUTO-CHAGRIN,NEURODIAG, Status: Pen, Time: 9:00 AM -[facility]-[place] 250 DO Work Phone: Start: 08-27-2021 FUV, Provider: [place], Status: Pen, Time: 10:50 AM FUV, Provider: [place], Status: Pen, Time: 10:50 AM [facility] Heart-[place] 250 DO Work Phone: Start: 08-27-2021 STRESS NUC, Provider : ELSY HHVI NUCLEAR 01,[id number], Status: Pen, Time: 8:00 AM STRESS NUC, Provider: ELSY HHVI NUCLEAR 01,[id number], Status: Pen, Time: 8:00 AM ZZ-Wqgqkjaxry-Nqcae a Work Phone: Start: 08-25-2021 Creatinine [facility] Work Phone: Start: 08-25-2021 Potassium monitoring [facility]it [facility] Work Phone: Start: 08-24-2021 COVID-19 Vaccine (2 - Pfizer risk series) COVID-19 Vaccine (2 - Pfizer risk series) [facility] Start: 08-14-2021 STRESS NUC, Provider : ELSY HHVI NUCLEAR 01,[id number], Status: Pen, Time: 7:30 AM STRESS NUC, Provider: ELSY HHVI NUCLEAR 01,[id number], Status: Pen, Time: 7:30 AM [facility] Heart-[place] 250 DO Work Phone: Start: 08-13-2021 FUV, Provider: Courtney Brown, Status: Pen, Time: 11:45 AM FUV, Provider: Courtney Brown, Status: Pen, Time: 11:45 AM VE-Rlcozfnjsi-Fillw ebenezer 2100 DO Work Phone: Start: 08-12-2021 FUV, Provider: Rich Magana, Status: Pen, Time: 11:15 AM FUV, Provider: Rich Magana, Status: Pen, Time: 11:15 AM MP-Pulmonary Medicine-[place] [address] [place] Work Phone: Start: 08-07-2021 AUTONOMIC, Provider: AUTO-CHAGRIN,NEURODIAG, Status: Pen, Time: 1:15 PM AUTONOMIC, Provider: AUTO-CHAGRIN,NEURODIAG, Status: Pen, Time: 1:15 PM HJ-Hkadskjtze-Fzixd ebenezer 2100 DO Work Phone: Start: 07-30-2021 FUVGENERAL, Provider : Jodie Matthews, Status: Pen, Time: 1:00 PM FUVGENERAL, Provider: Jodie Matthews, Status: Pen, Time: 1:00 PM NC-Wfufgshiou-Hecyl a Work Phone: Start: 07-29-2021 Urine culture Urine Culture [facility] Start: 07-10-2021 FUV, Provider: Rich Magana, Status: Pen, Time: 10:45 AM FUV, Provider: Rich Magana, Status: Pen, Time: 10:45 AM RV-Crwglrcwqq-Hfawg ebenezer 2100 DO Work Phone: Start: 07-01-2021 ECHO, Provider: ELSY HHVI ULTRASOUND 01,[id number], Status: Pen, Time: 12:30 PM ECHO, Provider: ELSY HHVI ULTRASOUND 01,[id number], Status: Pen, Time: 12:30 PM [facility] DORAL Recovery [facility] 130 [place] Work Phone: Start: 06-26-2021 AUTONOMIC, Provider: AUTO-CHAGRIN,NEURODIAG, Status: Pen, Time: 1:15 PM AUTONOMIC, Provider: AUTO-CHAGRIN,NEURODIAG, Status: Pen, Time: 1:15 PM BP-Msnqmgnrnu-Gzfom a Work Phone: Start: 06-19-2021 BOTOX, Provider: Jodie Matthews, Status: Pen, Time: 1:00 PM BOTOX, Provider: Jodie Matthews, Status: Pen, Time: 1:00 PM [facility] [place] Work Phone: Start: 06-18-2021 FUV, Provider: Courtney Brown, Status: Pen, Time: 10:45 AM FUV, Provider: Courtney Brown, Status: Pen, Time: 10:45 AM KK-Txyfptorvy-Esdhb ebenezer 2100 DO Work Phone: Start: 06-12-2021 FUV, Provider: Rich Magana, Status: Pen, Time: 11:30 AM FUV, Provider: Rich Magana, Status: Pen, Time: 11:30 AM MP-Pulmonary Medicine-[place] [address] [place] Work Phone: Start: 06-04-2021 VIRFUVROCÍO, Provider : Courtney Brown, Status: Pen, Time: 11:45 AM VIRFUVHOME, Provider: Courtney Brown, Status: Pen, Time: 11:45 AM MN-Uuptrlqdtb-Ttrcn ebenezer 2100 DO Work Phone: Start: 06-03-2021 Patient encounter procedure FUVCOVID, Provider: SHAYLA09 [facility] RM1,[id number], Status: Pen, Time: 9:30 AM BH-Lrsvoumsz-Aqngjw 170 DO Work Phone: Start: 05-30-2021 ECHO, Provider: ELSY HHVI ULTRASOUND 01,[id number], Status: Pen, Time: 2:30 PM ECHO, Provider: ESLY HHVI ULTRASOUND 01,[id number], Status: Pen, Time: 2:30 PM NT-Sfudgokceq-Qpohl a Work Phone: Start: 05-29-2021 NPV, Provider: Park Carrington, Status: Pen, Time: 2:40 PM NPV, Provider: Park Carrington, Status: Pen, Time: 2:40 PM UK-Whslysmdgi-Oglrw a Work Phone: Start: 05-29-2021 BOTOX, Provider: Jodie Matthews, Status: Pen, Time: 11:00 AM BOTOX, Provider: Jodie Matthews, Status: Pen, Time: 11:00 AM OL-Pgjtaortot-Hkawb ebenezer 2100 DO Work Phone: Start: 05-23-2021 BOTOX, Provider: Jodie Matthews, Status: Pen, Time: 11:00 AM BOTOX, Provider: Jodie Matthews, Status: Pen, Time: 11:00 AM ZE-Iqbsbqvwj-Lecadb 170 DO Work Phone: Start: 05-16-2021 FUVGENERAL, Provider : Mathew Miller, Status: Pen, Time: 9:30 AM FUVGENERAL, Provider: Mathew Miller, Status: Pen, Time: 9:30 AM YG-Zefhfgkhce-Oaqmv ebenezer 2100 DO Work Phone: Start: 05-15-2021 ENG, Provider: Marina Alcantar, Status: Pen, Time: 8:30 AM ENG, Provider: Marina Alcantar, Status: Pen, Time: 8:30 AM MP-Pulmonary Medicine-[place] [address] [place] Work Phone: Start: 05-13-2021 FUV, Provider: Courtney Brown, Status: Pen, Time: 11:15 AM FUV, Provider: Courtney Brown, Status: Pen, Time: 11:15 AM [facility] Work Phone: Start: 05-07-2021 FUV, Provider: Rich Magana, Status: Pen, Time: 8:15 AM FUV, Provider: Rich Magana, Status: Pen, Time: 8:15 AM ZM-Pbyquhhdn-Jrtuts 170 DO Work Phone: Start: 05-06-2021 INJECTION, Provider: MAIL EXAMINERJASS, Status: Pen, Time: 10:45 AM INJECTION, Provider: MAIL EXAMINERJASS, Status: Pen, Time: 10:45 AM [facility] Work Phone: Start: 05-02-2021 ENG, Provider: Marina Alcantar, Status: Pen, Time: 10:00 AM ENG, Provider: Marina Alcantar, Status: Pen, Time: 10:00 AM MP-Pulmonary Medicine-[place] A2470 DO Work Phone: Start: 04-23-2021 FUV, Provider: Courtney Brown, Status: Pen, Time: 12:00 PM FUV, Provider: Courtney Brown, Status: Pen, Time: 12:00 PM MP-Pulmonary Medicine-[place] A2470 DO Work Phone: Start: 04-22-2021 INJECTION, Provider: MAIL [id number], Status: Pen, Time: 10:45 AM INJECTION, Provider: MAIL EXAMINER,[id number], Status: Pen, Time: 10:45 AM OY-Egjfoctpps-Ixxgn ebenezer 2100 DO Work Phone: Start: 04-19-2021 NPV, Provider: Jaci Solano, Status: Pen, Time: 2:00 PM NPV, Provider: Jaci Solano, Status: Pen, Time: 2:00 PM MP-Pulmonary Medicine-[place] A2470 DO Work Phone: Start: 04-16-2021 FUVGENERAL, Provider : Jacki Alanis, Status: Pen, Time: 2:00 PM FUVGENERAL, Provider: Jacki Alanis, Status: Pen, Time: 2:00 PM CD-Cyowpdwky-Zubtd 204 Work Phone: Start: 04-10-2021 FUVGENERAL, Provider : Jodie Matthews, Status: Pen, Time: 11:30 AM FUVGENERAL, Provider: Jodie Matthews, Status: Pen, Time: 11:30 AM QM-Jjrmtpesz-Ewzbzi 170 DO Work Phone: Start: 04-01-2021 FUV, Provider: Courtney Brown, Status: Pen, Time: 11:00 AM FUV, Provider: Courtney Brown, Status: Pen, Time: 11:00 AM DT-Mfbsifprj-Wmavt 204 Work Phone: Start: 04-01-2021 NPVSLEEP, Provider: Ivonne Nagy, Status: Pen, Time: 10:00 AM NPVSLEEP, Provider: Ivonne Nagy, Status: Pen, Time: 10:00 AM RI-Dipwvjfso-Fiwgtu 170 DO Work Phone: Start: 03-26-2021 ENG, Provider: Ysabel Hoang, Status: Pen, Time: 3:00 PM ENG, Provider: Ysabel Hoang, Status: Pen, Time: 3:00 PM LH-Weuqzmolq-Ubfkk 204 Work Phone: Start: 03-22-2021 Patient encounter procedure FUVCOVID, Provider: [facility],[id number], Status: Pen, Time: 8:30 AM GK-Swvevnulqm-Cnrfa ebenezer 2100 DO Work Phone: Start: 03-20-2021 FUV, Provider: Rich Magana, Status: Pen, Time: 10:45 AM FUV, Provider: Rich Magana, Status: Pen, Time: 10:45 AM SC-Etlksncmht-Mzgyy ebenezer 2100 DO Work Phone: Start: 03-20-2021 NPV, Provider: Jaci Solano, Status: Pen, Time: 8:00 AM NPV, Provider: Jaci Solano, Status: Pen, Time: 8:00 AM II-Eyylrkrpv-Jidnx 204 Work Phone: Start: 03-18-2021 FUV, Provider: Rich Magana, Status: Pen, Time: 9:45 AM FUV, Provider: Rich Magana, Status: Pen, Time: 9:45 AM WN-Syrnqshgo-Cnfrbk 170 DO Work Phone: Start: 03-15-2021 INJECTION, Provider: MAIL EXAMINERJASS SELF, Status: Pen, Time: 10:45 AM INJECTION, Provider: MAIL [id number], Status: Pen, Time: 10:45 AM WP-Dlyosvxqp-Cvalw 204 Work Phone: Start: 03-07-2021 FUVCOVID, Provider: Carol Ann Elliott, Status: Pen, Time: 10:30 AM FUVCOVID, Provider: Carol Ann Elliott, Status: Pen, Time: 10:30 AM MP-Pulmonary Medicine-[place] [address] [place] Work Phone: Start: 03-07-2021 Patient encounter procedure FUVCOVID, Provider: [facility]UR [facility] RM[facility],[id number], Status: Pen, Time: 10:30 AM NN-Ifeknlupsv-Rfivn ebenezer 2100 DO Work Phone: Start: 03-06-2021 ENG, Provider: Ysabel Hoang, Status: Pen, Time: 10:30 AM ENG, Provider: Ysabel Hoang, Status: Pen, Time: 10:30 AM HA-Cmmxeelzd-Bfwaki 170 DO Work Phone: Start: 02-26-2021 NPV, Provider: Jaci Solano, Status: Pen, Time: 3:30 PM NPV, Provider: Jaci Solano, Status: Pen, Time: 3:30 PM SX-Akaefljwk-Grrhch 170 DO Work Phone: Start: 02-21-2021 BOTOX, Provider: Jodie Matthews, Status: Pen, Time: 11:00 AM BOTOX, Provider: Jodie Matthews, Status: Pen, Time: 11:00 AM UK-Mxtdlbrxf-Knibsk 170 DO Work Phone: Start: 02-18-2021 FUV, Provider: Rich Magana, Status: Pen, Time: 12:45 PM FUV, Provider: Rich Magana, Status: Pen, Time: 12:45 PM PK-Teppbwmuvl-Ccbkl ebenezer 2100 DO Work Phone: Start: 01-28-2021 INJECTION, Provider: JASS THOMAS, Status: Pen, Time: 1:30 PM INJECTION, Provider: JASS THOMAS, Status: Pen, Time: 1:30 PM VC-Rieqhnmana-Jtsxj eb[place]zer 2100 DO Work Phone: Start: 2021 RSV High Risk: (Elde rly (60+) or Population) (1 - Risk 60-74 years 1-dose series) RSV High Risk: (Elderly (60+) or Population) (1 - Risk 60-74 years 1-dose series) [facility] Start: 2021 RSV patient s and/or patients aged 60+ years (1 - 1-dose 60+ series) RSV patients and/or patients aged 60+ years (1 - 1-dose 60+ series) [facility] Start: 01-15-2021 FUV, Provider: Courtney Brown, Status: Pen, Time: 11:45 AM FUV, Provider: Courtney Brown, Status: Pen, Time: 11:45 AM MU-Uddodtgqsn-Afris ebenezer 2100 DO Work Phone: Start: 01-15-2021 FUV, Provider: Rich Magana, Status: Pen, Time: 8:15 AM FUV, Provider: Rich Magana, Status: Pen, Time: 8:15 AM [facility] [place] Work Phone: Start: 01-15-2021 NPV, Provider: Rich Magana, Status: Pen, Time: 8:15 AM NPV, Provider: Rich Magana, Status: Pen, Time: 8:15 AM [facility] Work Phone: Start: 01-10-2021 FUVGENERAL, Provider : Jodie Matthews, Status: Pen, Time: 11:00 AM FUVGENERAL, Provider: Jodie Matthews, Status: Pen, Time: 11:00 AM RF-Cshmvmydm-Idknah 170 DO Work Phone: Start: 12-25-2020 INJECTION, Provider: MAIL EXAMINERJASS, Status: Pen, Time: 2:30 PM INJECTION, Provider: MAIL [id number], Status: Pen, Time: 2:30 PM AW-Ojlessirhu-Gbuvl ebenezer 2100 DO Work Phone: Start: 12-10-2020 FUV, Provider: Courtney Brown, Status: Pen, Time: 10:15 AM FUV, Provider: Courtney Brown, Status: Pen, Time: 10:15 AM FM-Jznwwfixae-Iaudd ebenezer 2100 DO Work Phone: Start: 12-06-2020 NPVCOVID, Provider: Carol Ann Elliott, Status: Pen, Time: 9:00 AM NPVCOVID, Provider: Carol Ann Elliott, Status: Pen, Time: 9:00 AM UU-Cjxyxhpib-Ranabx 170 DO Work Phone: Start: 11-26-2020 FUV, Provider: Courtney Brown, Status: Pen, Time: 10:45 AM FUV, Provider: Courtney Brown, Status: Pen, Time: 10:45 AM LB-Agclrjywdq-Bfazj ebenezer 2100 DO Work Phone: Start: 11-22-2020 BOTOX, Provider: Jodie Matthews, Status: Pen, Time: 11:30 AM BOTOX, Provider: Jodie Matthews, Status: Pen, Time: 11:30 AM KF-Eyvyggxzyu-Kkwus ebenezer 2100 DO Work Phone: Start: 11-22-2020 FUVGENERAL, Provider : Jodie Matthews, Status: Pen, Time: 11:30 AM FUVGENERAL, Provider: Jodie Matthews, Status: Pen, Time: 11:30 AM JK-Telozsvqh-Egqeku 170 DO Work Phone: Start: 10-30-2020 INJECTION, Provider: MAIL EXAMINERJASS, Status: Pen, Time: 2:30 PM INJECTION, Provider: MAIL EXAMINERJASS, Status: Pen, Time: 2:30 PM GO-Xapzbmjnmo-Xdtas ebenezer 2100 DO Work Phone: Start: 10-30-2020 DTaP/Tdap/Td vaccine (1 - Tdap) DTaP/Tdap/Td vaccine (1 - Tdap) [place], [place] Comment on above: Postponed from 01/19 (Patient Refused) Start: 10-30-2020 Hepatitis C screening Hepatitis C sc deisy [place], [place] Comment on above: Postponed from 01/19 (Patient Refused) Start: 10-30-2020 HIV screening HIV screen [place], [place] Comment on above: Postponed from 01/19 (Patient Refused) Start: 05-07-2020 Creatinine measurement Creatinine mo nitoring [place], [place] Start: 05-07-2020 Creatinine monitoring Creatinine mon [facility] Phone: Start: 05-07-2020 Potassium monitoring Potassium monit [facility] Phone: Start: 04-09-2020 Zoster Vaccines (2 o f 2) Zoster Vaccines (2 of 2) [facility] Start: 04-06-2020 Lipid panel Lipid screen [place], [place] Start: 04-06-2020 Lipid screen Lipid screen [facility] Work Phone: Start: 03-22-2020 Creatinine monitoring Creatinine mon [place], [place] Start: 03-22-2020 Potassium monitoring Potassium monit [place], [place] Start: 02-14-2020 Peak expiratory flow rate monitoring using diary Asthma Control Flowsheet ZK-Acxrirkser-Znhdu ake Work Phone: Start: 01-29-2020 Creatinine monitoring Creatinine mon [place], [place] Start: 01-29-2020 Potassium monitoring Potassium monit [place] Start: 01-23-2020 End: 01-23-2020 Office Visit 01/23/2020 Office Visit Pulmonology Mychal Bautista MD [address] [place], [place] [id number] [facility] OUTREACH PULM Start: 01-10-2020 End: 01-10-2020 Office Visit 01/10/2020 Office Visit Neurology Juan C Angelo MD [address] [place] [address] [facility] Neurology Specialist Start: 01-03-2020 Influenza vaccination Flu vaccine (# 1) [place], [place] Start: 12-27-2019 Creatinine monitoring Creatinine mon [place], [place] Start: 12-27-2019 Potassium monitoring Potassium monit [place] Start: 12-22-2019 Creatinine monitoring Creatinine [place] Start: 12-22-2019 Potassium monitoring Potassium monit [place] Start: 11-21-2019 Annual Wellness Visi t (AWV) Annual Wellness Visit (AWV) [place], [place] Start: 10-28-2019 DTaP/Tdap/Td vaccine (1 - Tdap) DTaP/Tdap/Td vaccine (1 - Tdap) [place] Comment on above: Postponed from 01/19 (Patient Refused) Postponed from 01/19 (Patient Refused) Start: 10-28-2019 Hepatitis C screen Hepatitis C scree n [place], [place] Comment on above: Postponed from 01/19 (Patient Refused) Start: 10-28-2019 HIV screen HIV screen [place], [place] Comment on above: Postponed from 01/19 (Patient Refused) Start: 10-28-2019 Shingles Vaccine (1 of 2) Shingles Vaccine (1 of 2) [place], [place] Comment on above: Postponed from 01/19 (Unavailable) Start: 10-15-2019 Creatinine monitoring Creatinine mon itoring [place], [place] Start: 10-15-2019 Potassium monitoring Potassium monit oring [place] Start: 10-13-2019 End: 10-13-2019 Office Visit 10/13/2019 Office Visit Primary Care Bertram Peters, DELIVERY PROFESSIONAL - METALLOGRAPHIC TECHNICIAN [address] [place] [address] [facility] Start: 08-09-2019 End: 08-09-2019 Office Visit 08/09/2019 Office Visit Neurology Juan C Angelo MD [address], [address] [place] [address] [facility] Neurology Start: 07-25-2019 End: 07-25-2019 Patient encounter procedure 07/25/2019 Office Visit Pulmonology Dayton Fulton MD [address] [id number] [facility] OUTREACH PULM Start: 07-22-2019 End: 07-22-2019 Appointment 07/22/2019 Appointment Speech Therapy Jacki Rooney SLP [facility] Start: 07-20-2019 End: 07-20-2019 Office Visit [facility] Neu[facility] Comment on above: EPIDURAL STEROID INJ ECTION- C7-T1 Start: 07-18-2019 End: 07-18-2019 Office Visit 07/18/2019 Office Visit Pulmonology Mychal Bautista MD [address] [place] [address] [phone] [facility] Start: 06-27-2019 End: 06-27-2019 Appointment 06/27/2019 Appointment Speech Therapy Jacki Rooney SLP [facility] Start: 06-20-2019 End: 06-20-2019 Appointment 06/20/2019 Appointment Speech Therapy Jacki Rooney SLP [facility] Start: 06-16-2019 End: 06-16-2019 Patient encounter procedure 06/16/2019 Office Visit Neurology Liliana Madrigal DELIVERY PROFESSIONAL - METALLOGRAPHIC TECHNICIAN [address] [facility] [address] [place] [address] [phone] [facility] Neurology Specialist Start: 06-13-2019 End: 06-13-2019 Appointment 06/13/2019 Appointment Speech Jacki Garber SLP [facility] Start: 06-09-2019 Glaucoma screening Diabetes: R etinopathy Screening [facility] Start: 06-08-2019 End: 06-08-2019 Office Visit 06/08/2019 Office Visit Neurology Juan C Angelo MD [address] [facility], [address] [place] [address] [phone] [facility] Neurology Specialist Start: 06-07-2019 End: 06-07-2019 Patient encounter procedure 06/07/2019 Appointment Speech Jacki Garber SLP [facility] Start: 06-06-2019 End: 06-06-2019 Patient encounter procedure 06/06/2019 Office Visit Neurology Liliana Madrigal DELIVERY PROFESSIONAL - METALLOGRAPHIC TECHNICIAN [address] [facility] [address] [place] [address] [phone] [facility] Neurology Specialist Start: 05-23-2019 End: 05-23-2019 Patient encounter procedure 05/23/2019 Office Visit Pulmonology Mychal Bautista MD [address] [place], [place] [id number] [facility] OUTREACH PULM Start: 04-21-2019 End: 04-21-2019 Office Visit 04/21/2019 Office Visit Pulmonology Pa Patel MD [address] [address] [phone] Specialist [facility] [place] Start: 04-19-2019 End: 04-19-2019 Appointment 04/19/2019 Appointment Pulmonary Function Testing [facility] Start: 04-14-2019 End: 04-14-2019 Office Visit 04/14/2019 Office Visit Neurology Liliana Madrigal DELIVERY PROFESSIONAL - METALLOGRAPHIC TECHNICIAN [address] [address] [phone] [facility] Neurology Specialist Start: 04-13-2019 End: 04-13-2019 Office Visit 04/13/2019 Office Visit Primary Care Oni Gr DELIVERY PROFESSIONAL - METALLOGRAPHIC TECHNICIAN [facility] [place] [address] [phone] [facility] Primary Care [place] Start: 04-06-2019 End: 04-06-2019 Appointment 04/06/2019 Appointment Radiology [facility] CT Scan Start: 04-01-2019 End: 04-01-2019 Hospital Encounter [facility] Comment on above: BRONCHOSCOPY Start: 03-28-2019 End: 03-28-2019 Office Visit 03/28/2019 Office Visit Pulmonology Dayton Fulton MD [address] [address] [phone] Specialist Out[facility] [place] Start: 03-24-2019 End: 03-24-2019 Appointment 03/24/2019 Appointment Pulmonary Function Testing [facility] Start: 03-23-2019 End: 03-23-2019 Appointment 03/23/2019 Appointment Sleep Center [facility] Start: 03-15-2019 End: 03-15-2019 Appointment 03/15/2019 Appointment Pulmonary Function Testing [facility] Start: 03-14-2019 End: 03-14-2019 Office Visit 03/14/2019 Office Visit Neurology Liliana Madrigal DELIVERY PROFESSIONAL - METALLOGRAPHIC TECHNICIAN [address] [address] [phone] [facility] Neurology Specialist Start: 03-03-2019 End: 03-03-2019 Office Visit 03/03/2019 Office Visit Pulmonology Pa Patel MD [address] [facility] [address] [place], [place] [phone] Specialist [facility] [place] Start: 02-09-2019 End: 02-09-2019 Appointment 02/09/2019 Appointment Sleep Center [facility] Start: 02-02-2019 End: 02-02-2019 Procedure visit 02/02/2019 Procedure visit Urology Aditya Livingston MD [address] [place] [address] [facility] Start: 02-01-2019 End: 02-01-2019 Procedure visit 02/01/2019 Procedure visit Urology Agueda Cason, DELIVERY PROFESSIONAL - METALLOGRAPHIC TECHNICIAN [address] [facility] [address] [place] [address] [facility] Start: 01-31-2019 End: 01-31-2019 Appointment 01/31/2019 Appointment Pulmonary Function Testing [facility] Start: 01-25-2019 End: 01-25-2019 Office Visit 01/25/2019 Office Visit Neurology Liliana Madrigal, DELIVERY PROFESSIONAL - METALLOGRAPHIC TECHNICIAN [address] [facility] [address] [place] [address] [phone] [facility] Neurology Specialist Start: 01-24-2019 End: 01-24-2019 Office Visit 01/24/2019 Office Visit Pulmonology [place] Fulton MD 2[address] [facility] [address] [place], [place] [phone] Specialist [facility] [place] Start: 01-20-2019 End: 01-20-2019 Appointment 01/20/2019 Appointment Physical Therapy Wei Aguirre PTA [facility] Physical Therapy Start: 01-17-2019 End: 01-17-2019 Appointment [facility] Physical Therapy Start: 01-13-2019 End: 01-13-2019 Procedure visit 01/13/2019 Procedure visit Urology Aditya Livingston MD [address] [place] [phone] [facility] Start: 01-13-2019 End: 01-13-2019 Appointment 01/13/2019 Appointment Physical Therapy Kodi Mancia, ADARSH [facility] Physical Therapy Start: 01-12-2019 End: 01-12-2019 Office Visit 01/12/2019 Office Visit Primary Care Oni Gr, DELIVERY PROFESSIONAL - METALLOGRAPHIC TECHNICIAN [address] [place] [address] [phone] [facility] Start: 01-11-2019 End: 01-11-2019 Procedure visit [facility] Start: 01-02-2019 Influenza vaccination Flu vaccine (# 1) [place], [place] Start: 12-31-2018 End: 12-31-2018 Appointment 12/31/2018 Appointment Physical Therapy Wei Aguirre PTA [facility] Physical Therapy Start: 12-30-2018 End: 12-30-2018 Procedure visit [facility] Start: 12-28-2018 End: 12-28-2018 Procedure visit [facility] Start: 12-27-2018 End: 12-27-2018 Office Visit 12/27/2018 Office Visit Oncology Ruth Farah MD [address] [place] [address] [facility] Oncology Specialists Start: 12-24-2018 End: 12-24-2018 Appointment 12/24/2018 Appointment Physical Therapy Silvia Lenz, ADARSH [facility] Physical Therapy Start: 12-23-2018 End: 12-23-2018 Office Visit 12/23/2018 Office Visit Neurology Juan C Angelo MD [address] [facility], [address] [place] [address] [facility] Neurology Specialist Start: 12-22-2018 End: 12-22-2018 Office Visit [facility] Primary [facility] Start: 12-21-2018 End: 12-21-2018 [facility] Start: 12-20-2018 End: 12-20-2018 Appointment 12/20/2018 Appointment Physical Therapy Kaya Cancino, IT SPECIALIST [facility] Physical Therapy Start: 12-17-2018 End: 12-17-2018 Appointment 12/17/2018 Appointment Physical Therapy Kodi Mancia, PT [facility] Physical Therapy Start: 12-16-2018 End: 12-16-2018 Office Visit [facility] Special[facility] Start: 12-15-2018 End: 12-15-2018 [facility] Start: 12-14-2018 End: 12-14-2018 Appointment 12/14/2018 Appointment Physical Therapy Kodi Mancia, PT [facility] Physical Therapy Start: 12-13-2018 End: 12-13-2018 Office Visit [facility] Start: 06-09-2018 Glaucoma screening Diabetes: R etinopathy Screening [facility] Start: 2011 Colon cancer screen colonoscopy Colon cancer screen colonoscopy [place], [place] Start: 2011 Screening for malign ant neoplasm of colon Colon cancer screen colonoscopy [place], [place] Start: 2011 Shingles Vaccine (1 of 2) Shingles Vaccine (1 of 2) [place], [place] Start: 2001 Diabetes screen Diabetes screen [place], [place] Start: 01-20-1980 Urine screening for protein Diabetes: Urine Protein Screening [facility] Start: 1979 Diabetes mellitus screening Diabetes Screening [facility] Start: 1979 [facility] Start: 1977 COVID-19 Vaccine (1) COVID-19 Vaccin e (1) [facility] Work Phone: Start: 1971 Diabetic foot examination Diabetes: Foot Exam [facility] Start: 1962 MMR Vaccines (1 of 1 - Standard series) MMR Vaccines (1 of 1 - Standard series) [facility] Start: 1961 Hemoglobin A1c measurement Diabetes: Hemoglobin A1C [facility] Start: 1961 HIV screening HIV Screening [facility] Start: 1961 Lipid panel Lipid Panel [facility] Start: 1961 Medicare Annual Wellness Visit Medicare Annual Wellness Visit (AWV) [facility] Start: 1961 Screening for malign ant neoplasm of colon [facility] Start: 1961 Urine screening for protein Diabetes: Urine Protein Screening [facility] Acid [facility] Comment on above: ONE TIME for 1 Occur rences starting 04/01/2019 End: 04-15-2023 Bacteria identified in Unspecified specimen by Respiratory culture Respiratory Culture/Smear Microbiology Routine 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 Occurrences starting 04/08/2023 until 04/15/2023 [facility] Work Phone: Comment on above: 4 Occurrences starti ng 04/08/2023 until 04/15/2023 Bacteria identified in Urine by Culture [facility] Bacteria identified Respiratory culture Nom (Sput) Sputum Culture Microbiology Routine Pneumonia of right middle lobe due to infectious organism (HCC) 03/25/2019 9:09 AM EST [place] Comprehensive metabo lic 2000 panel - Serum or Plasma [facility] Comprehensive metabo lic 1999 panel - Serum or Plasma [facility] Comprehensive metabo lic 1999 panel - Serum or Plasma [facility] Comprehensive metabo lic 1999 panel - Serum or Plasma [facility] Comprehensive metabo lic 1999 panel - Serum or Plasma [facility] Comprehensive metabo lic 1999 panel - Serum or Plasma [facility] Comprehensive metabo lic 2000 panel - Serum or Plasma Comprehensive metabolic panel Lab Routine 03/03/2024 2:30 PM EDT [facility] [employer] Work Phone: Comprehensive metabo lic 2000 panel - Serum or Plasma Comprehensive metabolic panel Lab Routine 05/27/2024 1:10 PM EST [facility] [employer] Work Phone: Comprehensive metabo lic 2000 panel - Serum or Plasma [facility] Comprehensive metabo lic 2000 panel - Serum or Plasma Comprehensive metabolic panel Lab Routine 09/13/2024 9:48 AM EDT [employer] Work Phone: End: 12-08-2019 COVID-19 Ambulatory COVID-19 Ambulatory Lab Routine Chronic obstructive pulmonary disease, unspecified COPD type (HCC) 1 Occurrences starting 12/08/2019 until 12/08/2019 [facility]: 1 Occurrences starti ng 12/08/2019 until 12/08/2019 COVID-19 Ambulatory COVID-19 Amb ulatory Lab Routine Chronic obstructive pulmonary disease, unspecified COPD type (HCC) 12/08/2019 12:47 PM EDT [place], [place] End: 12-26-2018 Culture Blood #1 Culture Blood #1 Microbiology STAT One Time for 1 Occurrences starting 12/26/2018 until 12/26/2018 [place] Comment on above: One Time for 1 Occur rences starting 12/26/2018 until 12/26/2018 Culture Blood #1 Culture Blood # 1 Microbiology STAT 12/26/2018 12:55 PM EDT [place] End: 12-26-2018 Culture blood #2 Culture blood #2 Microbiology STAT One Time for 1 Occurrences starting 12/26/2018 until 12/26/2018 [place] Comment on above: One Time for 1 Occur rences starting 12/26/2018 until 12/26/2018 Culture blood #2 Culture blood # 2 Microbiology STAT 12/26/2018 2:40 PM EDT [place] Culture, Viral Respiratory [place] Comment on above: ONE TIME for 1 Occur rences starting 04/01/2019 Cytology, Non-Executive [employer] [place] Comment on above: ONE TIME for 1 Occur rences starting 04/01/2019 EKG 12 Lead [place], [place] Ferritin [Mass/volum e] in Serum or Plasma [facility] Work Phone: Ferritin [Mass/volum e] in Serum or Plasma [facility] Ferritin [Mass/volum e] in Serum or Plasma [facility] Fungus Culture [place] Comment on above: ONE TIME for 1 Occur rences starting 04/01/2019 Gastrin [Mass/volume ] in Serum or Plasma [facility] Work Phone: HHN Treatment HHN Treatment Respiratory Care Routine 0600, 1000, 1400, 1800, 2200 until discontinued starting 12/26/2018 [place] Comment on above: 0600, 1000, 1400, 18 00, 2200 until discontinued starting 12/26/2018 Iron and Iron bindin g capacity panel - Serum or Plasma Iron and TIBC Lab Routine 03/03/2024 2:30 PM EDT [facility] Iron and Iron bindin g capacity panel - Serum or Plasma Iron and TIBC Lab Routine 05/27/2024 1:10 PM EST [facility] Iron and Iron bindin g capacity panel - Serum or Plasma Iron and TIBC Lab Routine 09/13/2024 9:48 AM EDT [facility] Lactate dehydrogenas e [Enzymatic activity/volume] in Unspecified specimen [facility] Microbial culture of sputum [facility] Nasal Cannula Oxygen Nasal Cannu la Oxygen Respiratory Care STAT Daily until discontinued starting 12/26/2018, 1 completed [facility] Comment on above: Daily until disconti nued starting 12/26/2018, 1 completed Parietal cell Ab [Units/volume] in Serum [facility] Work Phone: Patient Education [facility] Work Phone: Patient referral [facility] Work Phone: Respiratory Culture [facility] Comment on above: ONE TIME for 1 Occur rences starting 04/01/2019 End: 04-01-2019 Surgical Pathology Surgical Pathology Lab Routine Once for 1 Occurrences starting 04/01/2019 until 04/01/2019 [facility] Comment on above: Once for 1 Occurrenc es starting 04/01/2019 until 04/01/2019 XR Chest 2 Views [facility] XR Chest 2 Views [facility] Fasenra 30 MG/ML Subcutaneous Solution Prefilled Syringe Ordered: 07-Sep-2018 Held Gretchen peterson Work Phone: [facility] NEGATED: Highlighted row has been ruled out! Planned Goals not documented [id number] Work Phone: Immunizations Immunization Date Immunization Notes Care Provider Fa cilikasie 02-04-2024 influenza, seasonal, injectable, preservative free MD Rachel Rayo Work Phone: [facility] 04-14-2022 influenza, injectabl e, quadrivalent, contains preservative Rachel Rayo Work Phone: -Pulmonary Medicine-[facility] [address] [place] Work Phone: Comment on above: Series: 04-14-2022 influenza, injectabl e, quadrivalent, preservative free [address] Work Phone: 04-14-2022 influenza virus vacc ine, unspecified formulation [address] Work Phone: 04-05-2022 tetanus toxoid, redu flako diphtheria toxoid, and acellular pertussis vaccine, adsorbed MD Rachel Rayo Work Phone: [facility] 08-03-2021 Comirnaty 30 MCG/0.3 ML Intramuscular Suspension Rachel Rayo Work Phone: [id number] Work Phone: 08-03-2021 SARS-CoV-2 mRNA (eyolrcqgcxz-zqbp-aywjsg e) vaccine Elizabeth CHAUDHRY [facility] 06-20-2021 Pfizer-BioNTech COVI D-19 Vacc 30 MCG/0.3ML Intramuscular Suspension Rachel Rayo Work Phone: [facility] 12-10-2020 pneumococcal polysaccharide vaccine, 23 valent; Translations: [Pneumovax 23 25 MCG/0.5ML Injection Injectable] Rachel Rayo Work Phone: [facility] Comment on above: Series: 02-13-2020 zoster vaccine recombinant Rachel Rayo Work Phone: [facility] 01-16-2020 influenza virus vacc ine, unspecified formulation Elizabeth CHAUDHRY [facility] 01-16-2020 influenza, injectabl e, quadrivalent, preservative free Rachel Rayo Work Phone: [address] Work Phone: 10-31-2019 zoster recombinant adjuvanted vaccine (SHINGRIX) 50 MCG/0.5ML SUSR injection [facility] [place] [place] 03-04-2019 influenza virus vacc ine, unspecified formulation Elizabeth CHAUDHRY [facility] 03-04-2019 influenza, injectabl e, quadrivalent, preservative free [facility] Work Phone: 02-05-2018 influenza virus vacc ine, unspecified formulation Elizabeth CHAUDHRY [facility] 02-05-2018 influenza, injectabl e, quadrivalent, preservative free Wei Aguirre [facility] [place] 05-04-2017 influenza virus vacc ine, unspecified formulation Wei Aguirre [facility] 05-04-2017 influenza, injectabl e, quadrivalent, contains preservative [facility] Work Phone: 05-04-2017 influenza, seasonal, injectable Rachel Amador Rayo Work Phone: [address] Work Phone: 05-04-2017 pneumococcal polysaccharide vaccine, 23 valent Wei Aguirre [facility] Payers Date Payer Category Payer Unknown 2022 Medicare [facility] MEDIC[facility] ANTH MEDICARE ADVANTAGE [id number] 2022-Present [id number] [place] [address] [id number]. [id number] 2022 Medicare (Managed Care) 1.2. [id number]. [id number] 2022 Self-pay [id number] 2014 Unknown [employer] xxxxxxxxxx 2014-Present [phone] [address] [address] [place] [address] xxxxxxxxxx 1.2.840.140159.1.13.239.2. 7.3.272821.315 2014 Unknown [id number] 1961 Unknown [id number] 2.16.840.1.180089.3.579.2. 647 1961 Unknown [id number] 2.16.840.1.992866.3.579.2. 175 1961 Unknown [id number] 2.16.840.1.514855.3.579.2. 1068 1961 Unknown [id number] 2.16.840.1.623616.3.579.2. 1068 1961 Unknown [id number] 2.16.840.1.348534.3.579.2. 1069 1961 Unknown [id number] 2.16.840.1.685510.3.579.2. 593 1961 Unknown [id number] 2.16.840.1.769126.3.579.2. 593 1961 Unknown [id number] 2.16.840.1.661360.3.579.2. 593 1961 Unknown [id number] 2.16.840.1.089286.3.579.2. 593 1961 Unknown [id number] 2.16.840.1.701282.3.579.2. 593 1961 Unknown [id number] 2.16.840.1.259370.3.579.2. 593 1961 Unknown [id number] 2.16.840.1.149431.3.579.2. 593 1961 Unknown [id number] 2.16.840.1.335393.3.579.2. 593 1961 Unknown [id number] 2.16.840.1.775228.3.579.2. 593 1961 Unknown [id number] 2.16.840.1.986388.3.579.2. 593 1961 Unknown [id number] 2.16.840.1.262261.3.579.2. 593 1961 Unknown [id number] 2.16.840.1.835303.3.579.2. 593 1961 Unknown [id number] 2.16.840.1.962285.3.579.2. 593 1961 Unknown [id number] 2.16.840.1.367052.3.579.2. 593 1961 Unknown [id number] 2.16.840.1.366979.3.579.2. 593 1961 Unknown [id number] 2.16.840.1.214813.3.579.2. 593 1961 Unknown [id number] 2.16.840.1.516109.3.579.2. 593 1961 Unknown [id number] 2.16.840.1.656913.3.579.2. 593 1961 Unknown [id number] 2.16.840.1.057182.3.579.2. 593 1961 Unknown [id number] 2.16.840.1.251673.3.579.2. 593 1961 Unknown [id number] 2.16.840.1.545417.3.579.2. 593 1961 Unknown [id number] 2.16.840.1.660073.3.579.2. 593 1961 Unknown [id number] 2.16.840.1.532038.3.579.2. 593 1961 Unknown [id number] 2.16.840.1.297206.3.579.2. 593 1961 Unknown [id number] 2.16.840.1.417546.3.579.2. 593 1961 Unknown [id number] 2.16.840.1.671154.3.579.2. 593 1961 Unknown [id number] 2.16.840.1.614836.3.579.2. 593 1961 Unknown [id number] 2.16.840.1.497874.3.579.2. 593 1961 Unknown [id number] 2.16.840.1.939591.3.579.2. 356 1961 Unknown [id number] 2.16.840.1.386252.3.579.2. 356 1961 Unknown [id number] 2.16.840.1.639831.3.579.2. 356 1961 Unknown [id number] 2.16.840.1.842003.3.579.2. 356 1961 Unknown [id number] 2.16.840.1.038165.3.579.2. 356 1961 Unknown [id number] 2.16.840.1.224395.3.579.2. 356 1961 Unknown [id number] 2.16.840.1.308950.3.579.2. 356 1961 Unknown [id number] 2.16.840.1.023926.3.579.2. 356 1961 Unknown [id number] 2.16.840.1.497754.3.579.2. 356 1961 Unknown [id number] 2.16.840.1.299961.3.579.2. 356 1961 Unknown [id number] 2.16.840.1.452192.3.579.2. 1961 Unknown [id number] 2.16.840.1.341479.3.579.2. 1961 Unknown [id number] 2.16.840.1.563868.3.579.2. 1961 Unknown [id number] 2.16.840.1.496641.3.579.2. 1961 Unknown [id number] 2.16.840.1.131943.3.579.2. 1961 Unknown [id number] 2.16.840.1.288521.3.579.2. 1961 Unknown [id number] 2.16.840.1.788140.3.579.2. 1961 Unknown [id number] 2.16.840.1.223906.3.579.2. 1961 Unknown [id number] 2.16.840.1.354169.3.579.2. 1961 Unknown [id number] 2.16.840.1.810085.3.579.2. 1961 Unknown [id number] 2.16.840.1.752220.3.579.2. 1961 Unknown [id number] 2.16.840.1.092547.3.579.2. 1961 Unknown [id number] 2.16.840.1.876300.3.579.2. 1961 Unknown [id number] 2.16.840.1.934400.3.579.2. 1961 Unknown [id number] 2.16.840.1.574757.3.579.2. 1961 Unknown [id number] 2.16.840.1.924790.3.579.2. 356 1961 Unknown [id number] 2.16.840.1.477081.3.579.2. 1245 1961 Unknown [id number] 2.16.840.1.010019.3.579.2. 1241 1961 Unknown [id number] 2.16.840.1.460330.3.579.2. 1241 1961 Unknown [id number] 2.16.840.1.749874.3.579.2. 1241 1961 Unknown [id number] 2.16.840.1.685686.3.579.2. 1241 1961 Unknown [id number] 2.840.1.695882.3.579.2. 1244 1961 Unknown [id number] 2.16840.1.147405.3.579.2. 1243 1961 Unknown [id number] 2.840.1.828718.3.579.2. 1243 1961 Unknown [id number] 2.840.1.345903.3.579.2. 1243 1961 Unknown [id number] 2.840.1.125779.3.579.2. 1243 1961 Unknown [id number] 2.16840.1.437329.3.579.2. 1243 1961 Unknown [id number] 2.16.840.1.698166.3.579.2. 1243 1961 Unknown [id number] 2.16.840.1.309181.3.579.2. 1243 1961 Unknown [id number] 2.16840.1.149450.3.579.2. 1243 1961 Unknown [id number] 2.16.840.1.972097.3.579.2. 1244 1961 Unknown [id number] 2.16.840.1.660928.3.579.2. 1243 1961 Unknown [id number] 2.16.840.1.444662.3.579.2. 1243 1961 Unknown [id number] 2.16.840.1.454647.3.579.2. 1243 1961 Unknown [id number] 2.16.840.1.955856.3.579.2. 1243 1961 Unknown [id number] 2.16.840.1.027311.3.579.2. 1243 1961 Unknown [id number] 2.16.840.1.329754.3.579.2. 1243 1961 Unknown [id number] 2.16.840.1.165948.3.579.2. 1961 Unknown [id number] 2.16.840.1.420018.3.579.2. 1961 Unknown [id number] 2.16.840.1.248072.3.579.2. 1961 Unknown [id number] 2.16.840.1.374060.3.579.2. 1961 Unknown [id number] 2.16.840.1.798888.3.579.2. 1961 Unknown [id number] 2.16.840.1.616724.3.579.2. 1961 Unknown [id number] 2.16.840.1.921038.3.579.2. 1961 Unknown [id number] 2.16.840.1.604037.3.579.2. 72 1961 Unknown [id number] 2.16.840.1.027610.3.579.2. 727 1961 Unknown [id number] 2.16.840.1.179877.3.579.2. 727 1961 Unknown [id number] 2.16.840.1.621124.3.579.2. 727 1959 Medicare [id number] 1.2.840.733763.1.13.239.2. 7.3.863905.315 1959 Self-pay [id number] [facility] [id number] Unknown [id number] Unknown [id number] Unknown [id number] Unknown HCAP/HFA/FAP Active [id number] Unknown [id number] 2.16.840.1.756974.3.579.2. 531 Unknown [id number] 2.16.840.1.140733.3.579.2. 531 Unknown [id number] 2.16.840.1.514204.3.579.2. 531 Unknown [id number] 2.16.840.1.259572.3.579.2. 531 Social History Date Type Detail Facility Start: 12-10-2018 End: 09-01-2023 Tobacco smoking status NVIS Never smoker [facility] Start: 12-10-2018 End: 07-24-2024 Alcohol intake Not Currently [facility] Start: 1960 Sex Assigned At [facility] Start: 03-24-2019 End: 05-23-2019 Alcohol intake Ex-drinker (finding) [facility] Start: 12-08-2019 End: 02-09-2023 Tobacco use and exposure Never used [facility] Start: 02-06-2023 End: 09-12-2024 Exposure to SARS-CoV-2 (event) Not sure [facility] Start: 02-26-2023 End: 07-24-2024 Marital History - Marital History - [facility] Comment on above: retired; Start: 1960 Sex Assigned At Male F [facility] Tobacco smoking status Never Execu t[facility] Start: 02-09-2023 End: 09-13-2024 Alcohol intake Lifetime non-drinker (finding) [facility] Work Phone: Start: 10-17-2023 End: 10-17-2023 Tobacco smoking status NHIS Unknown if ever smoked [facility] Has the [employer], [employer], oil, or water company threatened to shut off services in your home in past 12Mo Yes [facility] Work Phone: Are you now , , , , never or living with a partner? [facility] Work Phone: How often to you hav e a drink containing alcohol? Never [facility] Work Phone: How hard is it for y ou to pay for the very basics like food, housing, medical care, and heating Very hard [facility] Work Phone: Do you feel stress - tense, restless, nervous, or anxious, or unable to sleep at night because your mind is troubled all the time - these days [OSQ] Very much [facility] Work Phone: (I/We) worried lucio er (my/our) food would run out before (I/we) got money to buy more. Often true [facility] Work Phone: At any time in the past 12 months, were you homeless or living in alf [including now]? No [facility] Work Phone: Start: 02-14-2015 End: 05-31-2024 Sex Male (finding) [facility] Do you feel stress - tense, restless, nervous, or anxious, or unable to sleep at night because your mind is troubled all the time - these days [OSQ] To some extent [facility] Work Phone: How often do you nee d to have someone help you when you read instructions, pamphlets, or other written material from your doctor or pharmacy [SILS] Sometimes [facility] NEGATED: Highlighted row - - YZ-Icgwmbcrlu-Ijanlv Work Phone: Goals Date Patient Goal Desired Activity /State Functional Status Date Assessment Result Facility 09-12-2024 Patient Health Questionnaire 2 item (PHQ-2) [Reported] [facility] Work Phone: 08-10-2024 Patient Health Questionnaire 2 item (PHQ-2) [Reported] [facility] Work Phone: 08-10-2024 PHQ-9 quick depressi on assessment panel [Reported.PHQ] [facility] Work Phone: 07-06-2024 Functional Status N/A [facility] 05-09-2024 Functional Status N/A [facility] 01-18-2024 Functional Status N/A [facility] 12-29-2023 Functional Status N/A [facility] 12-04-2023 Functional Status N/A [facility] 09-01-2023 Functional Status N/A [facility] 07-08-2023 Functional Status N/A [facility] 04-08-2023 Functional Status N/A [facility] 2023 Functional Status N/A [facility] 12-24-2022 Functional Status N/A [facility] 11-27-2022 Functional Status N/A [facility] 11-11-2022 Functional Status N/A [facility] 10-29-2022 Functional Status N/A [facility] 08-07-2022 Functional Status N/A [facility] 05-19-2022 Functional Status N/A [facility] 07-30-2021 Functional status Patient at Baseline [facility] Work Phone: [facility] Work Phone: NEGATED: Highlighted row Functional performance Functional status health issues are not documented Disease NC-Kyctjsvawc-Qfdncb Work Phone: Mental Status Date Assessment Result Facility 07-30-2021 Cognitive function Cognitive Sta tus Patient at Baseline [facility] Work Phone: NEGATED: Highlighted row Cognitive function [Interpretation] Cognitive status health issues are not documented Disease ML-Ozyrymznil-Tublsr Work Phone: Clinical Notes 01-03-2017 to 09-14-2024 Assessment & Plan Note - Courtney Brown MD - 09/14/2024 3:50 PM EDTAssessment & Plan Note - Courtney Brown MD - 09/14/2024 3:50 PM EDTDamaia Brown MD - 09/13/2024 12:15 PM EDT Note Date & Type Note Facility 09-14-2024 Evaluation + Plan note Associated Problem(s): Hypokalemia He recently received potassium in the ED following an IVIg infusion. I will recheck his potassium today. 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 He is doing well but is having some issues with access. I would like to try to find a company that can do training for subcu infusions. His last IgG level was normal. [facility] Work Phone: 09-14-2024 Miscellaneous Notes Associated Problem(s): Hypokalemia He recently received potassium in the ED following an IVIg infusion. I will recheck his potassium today. 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 He is doing well but is having some issues with access. I would like to try to find a company that can do training for subcu infusions. His last IgG level was normal. documented in this encounter [facility] Work Phone: 09-13-2024 History of Present illness Narrative Subjective Velia Bagley is a 64 y.o. male who presents for Immunodeficiency, Allergic Rhinitis, and Asthma (Follow up). Chief Complaint Patient presents with Immunodeficiency Allergic Rhinitis Asthma Follow up Patient presents for F/U of immunodeficiency. Since last visit, 06-14-24, patient reports his potassium was very low and we sent him to the ED 09-07-24. He was taking four 20 mg of potassium daily, but dropped down to 20 because the nighttime dose exploded in his mouth and choked him. He did restart the 2 again and has been on 4 pills a day since the ED visit. He was told he had a nodule on his liver and because of that he could not take Lasix. He does take spironolactone per Rachel Rayo MD. He does not follow with a digital solutions architect. Patient states he takes Hiprex for bladder issues. Patient continues Gamunex-C infusions at [facility]. He states he had a vein blow during his infusion after the tech tried several access points. His hand was tried but he was subsequently wheeled to the ED where they were able to use it. His last IgG was done in Jun or July at [facility]. He reports he was sick for 1.5 weeks due to lung issues. He was supposed to have a PFT with walking yesterday at [place]. He had to cancel it because he woke up with cough and low-grade fever and will try to get in next week to complete it. Patient is requesting a refill on his azithromycin, which he feels is helpful. Review of Systems Allergic/Immunologic: Positive for immunocompromised state. Objective Pulse 78 Wt 81.6 kg (180 lb) SpO2 92% BMI 26.58 kg/m Physical Exam Constitutional: Appearance: Normal appearance. HENT: Head: Normocephalic and atraumatic. Right Ear: External ear normal. There is no impacted cerumen. Left Ear: External ear normal. There is no impacted cerumen. Nose: No congestion or rhinorrhea. Eyes: Extraocular Movements: Extraocular movements intact. Conjunctiva/sclera: Conjunctivae normal. Pupils: Pupils are equal, round, and reactive to light. Cardiovascular: Rate and Rhythm: Normal rate and regular rhythm. Heart sounds: No murmur heard. No friction rub. No gallop. Pulmonary: Effort: No respiratory distress. Breath sounds: No wheezing, rhonchi or rales. Skin: General: Skin is warm and dry. Neurological: Mental Status: He is alert. Psychiatric: Mood and Affect: Mood normal. Behavior: Behavior normal. 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 He is doing well but is having some issues with access. I would like to try to find a company that can do training for subcu infusions. His last IgG level was normal. Hypokalemia He recently received potassium in the ED following an IVIg infusion. I will recheck his potassium today. By signing my name below, I, Alida Zamora, attest that this documentation has been prepared under the direction and in the presence of Courtney Brown MD. All medical record entries made by the Scribe were at my direction and personally dictated by me. I have reviewed the chart and agree that the record accurately reflects my personal performance of the history, physical exam, discussion and plan. documented in this encounter [facility] Work Phone: 09-13-2024 Instructions Ingrid Parker - 09/13/2024 12:15 PM EDT Have blood work to recheck potassium level. I will follow up with you with results and further recommendations. Continue azithromycin. Continue Tezspire. Continue IV Gamunex-C infusions until we switch to subcu when available. documented in this encounter [facility] Work Phone: 09-12-2024 Evaluation + Plan note Associated Problem(s): Dizziness Orders: Follow Up In Neurology; Future [facility] Work Phone: 09-12-2024 Evaluation + Plan note Associated Problem(s): Chronic migraine without aura without status migrainosus, not intractable Orders: Follow Up In Neurology; Future [facility] Work Phone: 09-12-2024 Evaluation + Plan note Associated Problem(s): Migraines Orders: Follow Up In Neurology; Future ketorolac (Toradol) injection 60 mg ketorolac (Toradol) 10 mg tablet; Take 1 tablet (10 mg) by mouth every 6 hours for 5 days. [facility] Work Phone: 09-12-2024 History of Present illness Narrative Chief Complaint Patient presents with Migraine Subjective HPI Velia Bagley is a 64 y.o. year old male who presents with chief complaint Chronic migraine without aura without status migrainosus, not intractable [G43.709]. Velia is experiencing 30 JOHNS days per month, 20 of the HAs meet migraine criteria. Triggers are flashing lights & loud noises, & weather changes. Aura consisting of blurry vision and dizziness. Migraine occurs occipital, pulling sensation or behind right eye. Associated right arm weakness, light and noise sensitivity,nausea-Zofran is helpful. Headaches are worsened with exertion. Using Emgality every 21 days, feels like the intensity of the migraines is decreased. Botox every 90 days with Toradol protocol, last 08/10/24. Treats migraines with sumatriptan pill first, starts to work after 45 minutes, reduces migraine by 50%, if intense, will follow with injectable and lay down- effective to completely reduce. Stopped seeing psychiatrist and counselor, was unhappy with care. Pain dr moved him to OxyContin 5 mg. Sleep: sleep unchanged, having trouble falling and staying a sleep. Averages about 5 hours at night. Takes about a 3 hour nap in the afternoon from not sleeping well. Patient had 15 headache days a month or more, 8 meeting migraine criteria. They had tried and failed 3 preventative and 3 abortives. Presently their headaches are well controlled because of Botox Therapy. It had reduced the headaches by 50%. Current/ past JOHNS treatments: Preventive: Botox Amitriptyline Emgality- has been on since Lyrica Verapamil Effexor Clonidine Flexeril Magnesium Topamax ------ Aimovig Vyepti- has not tried, not covered under formulary Rescue: Sumatriptan PO/injection acetazolamide Rizatriptan Current Outpatient Medications: albuterol 90 mcg/actuation inhaler, every 4 hours., Disp: , Rfl: amitriptyline (Elavil) 100 mg tablet, TAKE 1 TABLET BY MOUTH EVERYDAY AT BEDTIME, Disp: 90 tablet, Rfl: 1 amLODIPine (Norvasc) 5 mg tablet, Take 1 tablet (5 mg) by mouth once daily., Disp: , Rfl: atorvastatin (Lipitor) 40 mg tablet, Take 1 tablet (40 mg) by mouth once daily., Disp: , Rfl: azithromycin (Zithromax) 500 mg tablet, Take 1 pill Thursday, Thursday and Thursday, Disp: 12 tablet, Rfl: 5 earemkcwuy-jyoqiozw-vmvsmxomsq (Breztri Aerosphere) 160-9-4.8 mcg/actuation HFA aerosol inhaler, Inhale 2 puffs 2 times a day., Disp: 10.7 g, Rfl: 11 celecoxib (CeleBREX) 200 mg capsule, TAKE 2 CAPSULES BY MOUTH TWICE A DAY, Disp: 360 capsule, Rfl: 1 cloNIDine (Catapres) 0.1 mg tablet, Take 1 tablet (0.1 mg) by mouth 2 times a day., Disp: , Rfl: fluticasone (Flonase) 50 mcg/actuation nasal spray, Administer 2 sprays into each nostril once daily., Disp: , Rfl: galcanezumab (Emgality Pen) 120 mg/mL auto-injector, Inject 120 mg (1 pen) under the skin every 28 (twenty-eight) days., Disp: 1 each, Rfl: 6 Gamunex-C 40 gram/400 mL (10 %) solution, , Disp: , Rfl: levalbuterol (Xopenex) 45 mcg/actuation inhaler, Inhale 1-2 puffs every 6 hours if needed for wheezing., Disp: 45 g, Rfl: 0 meclizine (Antivert) 12.5 mg tablet, Take 1 tablet (12.5 mg) by mouth if needed for dizziness., Disp: 30 tablet, Rfl: 3 methenamine hippurate (Hiprex) 1 gram tablet, Take 1 tablet (1 g) by mouth 2 times a day., Disp: , Rfl: omeprazole (PriLOSEC) [address] capsule, TAKE 1 CAPSULE BY MOUTH EVERY 12 HOURS, Disp: 180 capsule, Rfl: 3 ondansetron (Zofran) 4 mg tablet, Take 2 tablets (8 mg) by mouth every 8 hours if needed for nausea or vomiting., Disp: , Rfl: oxyCODONE (Oxaydo) 5 mg immediate release tablet, Take 1 tablet (5 mg) by mouth if needed for severe pain (7 - 10)., Disp: , Rfl: oxygen (O2) gas therapy, 3.5 L/min., Disp: , Rfl: potassium chloride CR 20 mEq ER tablet, Take 1 tablet (20 mEq) by mouth 2 times a day., Disp: , Rfl: pregabalin (Lyrica) 100 mg capsule, Take 1 capsule (100 mg) by mouth twice a day., Disp: , Rfl: spironolactone (Aldactone) 50 mg tablet, Take 1 tablet (50 mg) by mouth once daily., Disp: , Rfl: SUMAtriptan (Imitrex) 100 mg tablet, Take 1 tablet (100 mg) by mouth 1 time if needed for migraine for up to 108 doses. No more than 2 triptan medications in 24 hours., Disp: 27 tablet, Rfl: 3 SUMAtriptan (Imitrex) 6 mg/0.5 mL injection, Inject 0.5 mL (6 mg) under the skin if needed for migraine for up to 18 doses. No more than 2 triptan medications in 24 hours., Disp: 3 mL, Rfl: 3 SUMAtriptan (Imitrex) 6 mg/0.5 mL injection, Inject 1 pen (0.5 mL) under the skin once if needed for migraine. May repeat dose after 1 hour if symptoms persist or return. Do not exceed max of 6 mg per dose or 12 mg per 24 hours. , Disp: 3 mL, Rfl: 6 tezepelumab-ekko (Tezspire) SubQ Pen Injector, Inject 1 pen (210 mg) under the skin every 28 (twenty-eight) days., Disp: 1.91 mL, Rfl: 5 topiramate (Topamax) 100 mg tablet, Take 1 tablet (100 mg) by mouth once daily. With 50mg, Disp: 90 tablet, Rfl: 3 topiramate (Topamax) 200 mg tablet, Take 1 tablet (200 mg) by mouth 2 times a day. 1 tab at dinner and 1 tab at bedtime, Disp: 180 tablet, Rfl: 3 topiramate (Topamax) 50 mg tablet, TAKE 1 TABLET BY MOUTH IN THE MORNING, 1 IN THE EVENING AND 1 AT BEDTIME WITH 200MG TABLET, Disp: 270 tablet, Rfl: 3 venlafaxine XR (Effexor-XR) 150 mg 24 hr capsule, TAKE 2 CAPSULES BY MOUTH ONCE DAILY WITH FOOD, Disp: 180 capsule, Rfl: 3 verapamil (Calan) 120 mg tablet, TAKE 1 TABLET BY MOUTH ONCE DAILY AT BEDTIME., Disp: 90 tablet, Rfl: 3 ketorolac (Toradol) 10 mg tablet, Take 1 tablet (10 mg) by mouth every 6 hours for 5 days., Disp: 20 tablet, Rfl: 0 losartan (Cozaar) 100 mg tablet, Take 1 tablet (100 mg) by mouth early in the morning.., Disp: , Rfl: Allergies Allergen Reactions Avocado Respiratory depression, Shortness of breath and Wheezing Diazepam Other, Unknown and Shortness of breath DEPRESSION Other reaction(s): Other (See Comments) DEPRESSION Grass Pollen Cough, Dermatitis, Runny nose, Shortness of breath and Wheezing Monosodium Glutamate Headache, Hives and Shortness of breath Aspartame Headache Baclofen Unknown and Myalgia Muscle weakness Weakness, dizziness Other reaction(s): Other (See Comments) Muscle weakness Weakness, dizziness Candesartan Other Cefdinir Other Rash; early in the course. Chocolate Flavor Headache [place] Headache Diltiazem Other Other Unknown Iv contrast dye [place]ima Oil Unknown Ciprofloxacin Swelling and Rash Rash, tongue swelling Indomethacin Rash, Unknown and Hives Low BP hypotension Other reaction(s): Other (See Comments) Low BP hypotension Penicillins Hives, Rash and Unknown Rash; childhood age 5. Early in the course Propranolol Rash and Syncope Severe low bp and kidneys shutting down. hypotension Severe low bp and kidneys shutting down. hypotension Sulfa (Sulfonamide Antibiotics) Rash and Other HIVES; 1970s Social History Tobacco Use Smoking status: Never Smokeless tobacco: Never Substance Use Topics Alcohol use: Never Social History Substance and Sexual Activity Drug Use Never ROS As noted in HPI, otherwise all other systems have been reviewed are negative for complaint. Objective General Appearance: Velia is well-developed, well-nourished, 64 y.o. year old male, in no acute distress. Makes good eye contact, is alert, interactive, and cooperative. Demonstrates recent & remote memory recall. Subjective information consistent with objective assessment. Vitals: 09/12/24 1418 BP: 143/85 Pulse: 88 Resp: 17 Weight: 82.1 kg (181 lb) Height: 1.753 m (5' 9 ) PainSc: 4 PainLoc: Head Lab Results Component Value Date WBC 7.6 11/29/2021 RBC 4.74 11/29/2021 HGB 12.6 (L) 02/24/2022 HCT 43.6 02/24/2022 PLT 256 11/29/2021 NA 135 (L) 11/30/2023 K 3.8 09/13/2024 CL 105 11/30/2023 BUN 29 (H) 11/30/2023 CREATININE 0.93 11/30/2023 EGFR >90 11/30/2023 CALCIUM 9.8 11/30/2023 ALKPHOS 115 11/30/2023 AST 16 11/30/2023 ALT 13 11/30/2023 MG 2.24 07/23/2018 [id number] 06/03/2021 VITD25 43 07/06/2017 TSH 1.48 06/03/2021 Neurological Exam Cranial Nerves CN III, IV, : Extraocular movements intact bilaterally. Normal lids and orbits bilaterally. CN VII: Full and symmetric facial movement. CN VIII: Hearing is normal. Assessment & Plan Chronic migraine without aura without status migrainosus, not intractable Orders: Follow Up In Neurology; Future Intractable chronic migraine without aura and with status migrainosus Orders: Follow Up In Neurology; Future ketorolac (Toradol) injection 60 mg ketorolac (Toradol) 10 mg tablet; Take 1 tablet (10 mg) by mouth every 6 hours for 5 days. Dizziness Orders: Follow Up In Neurology; Future ASSESSMENT/PLAN: For migraines, continue current medication regimen of Botox every 90 days, every 21-day Emgality, and migraine rescue with sumatriptan pills/ injection. Please call to establish with [facility] for psychiatric care/counseling: [facility]: [facility] Address: [address] [address], [place] [address] You received Toradol (ketorolac) today for your severe headache. We are going to continue with 5 days of pills starting tomorrow to break your headache cycle. Take 1 pill with breakfast, lunch, dinner & at bedtime for 5 days. Please take with food. Try to avoid taking your triptan or antiinflammatory medication during this time. If you have any nausea or diarrhea with the medication, stop & send a message via [facility], or call the next business day. Keep next Botox appointment 11/09/2024 Follow up with me in 6 months, sooner if needed I personally spent 32 minutes today, exclusive of procedures, providing care for this patient, including preparation, face to face time, documentation and other services such as review of medical records, diagnostic result, patient education, counseling, coordination of care as specified in the encounter. CARSON Montez documented in this encounter [facility] Work Phone: 09-12-2024 Instructions CARSON Montez - 09/12/2024 2:00 PM EDT Dear Velia, Thank you for coming to [facility]. It was a pleasure caring for you today. The best way to contact me for medication refills or questions about your care is through [facility]. Otherwise, you can contact the office by phone: . CARSON Montez PLAN: For migraines, continue current medication regimen of Botox every 90 days, every 21-day Emgality, and migraine rescue with sumatriptan pills/ injection. Please call to establish with [facility] for psychiatric care/counseling: [facility]: [facility] Address: [address] [place] [address], [place] [address] You received Toradol (ketorolac) today for your severe headache. We are going to continue with 5 days of pills starting tomorrow to break your headache cycle. Take 1 pill with breakfast, lunch, dinner & at bedtime for 5 days. Please take with food. Try to avoid taking your triptan or antiinflammatory medication during this time. If you have any nausea or diarrhea with the medication, stop & send a message via [facility], or call the next business day. Keep next Botox appointment 11/09/2024 Follow up with me in 6 months, sooner if needed documented in this encounter [facility] Work Phone: 09-12-2024 Miscellaneous Notes Associated Problem(s): Dizziness Orders: Follow Up In Neurology; Future Associated Problem(s): Chronic migraine without aura without status migrainosus, not intractable Orders: Follow Up In Neurology; Future Associated Problem(s): Migraines Orders: Follow Up In Neurology; Future ketorolac (Toradol) injection 60 mg ketorolac (Toradol) 10 mg tablet; Take 1 tablet (10 mg) by mouth every 6 hours for 5 days. documented in this encounter [facility] Work Phone: 08-17-2024 Evaluation + Plan note Associated Problem(s): Post-acute sequelae of COVID-19 (PASC) 08/2024: brain fog, fatigue, poor sleep, shortness of breath, voice changes, anxiety and depression, musculoskeletal pain, deconditioning, taste changes -CBT-i Controls Design Engineer smartphone osorio by the [place] -continue close follow up with your specialists and their recommendations -consider virtual Occupational Therapy for Long COVID related fatigue and brain fog -consider restarting Physical Therapy 02/2023: brain fog, fatigue, poor sleep, shortness of breath, voice changes, anxiety and depression, musculoskeletal pain, deconditioning, taste changes -re-ordered PT, OT, and INVENTORY ASSOCIATE for deconditioning and vocal cord dysfunction. Printed [...] with Dr. Good -follow-up on referral to INVENTORY ASSOCIATE to address vocal cord dysfunction noted by ENT -referral to Physical Therapy and Occupational Therapy specifically for Long-COVID related symptoms including brain fog, fatigue, weakness management. 08/2022: Cognitive and memory changes, fatigue, insomnia, shortness of breath, cough, anxiety, depression, musculoskeletal pain, weakness -proceed with aquatherapy at [facility] as ordered by your orthopedic surgeon, after [...] PCP's referral to Psychology for Therapy at [facility], please let me know if you would [...] from immunology to get second COVID vaccine [facility] Work Phone: 08-17-2024 Miscellaneous Notes Associated Problem(s): Post-acute sequelae of COVID-19 (PASC) 08/2024: brain fog, fatigue, poor sleep, shortness of breath, voice changes, anxiety and depression, musculoskeletal pain, deconditioning, taste changes -CBT-i Controls Design Engineer smartphone osorio by the [place] -continue close follow up with your specialists and their recommendations -consider virtual Occupational Therapy for Long COVID related fatigue and brain fog -consider restarting Physical Therapy 02/2023: brain fog, fatigue, poor sleep, shortness of breath, voice changes, anxiety and depression, musculoskeletal pain, deconditioning, taste changes -re-ordered PT, OT, and INVENTORY ASSOCIATE for deconditioning and vocal cord dysfunction. Printed [...] with Dr. Good -follow-up on referral to INVENTORY ASSOCIATE to address vocal cord dysfunction noted by ENT -referral to Physical Therapy and Occupational Therapy specifically for Long-COVID related symptoms including brain fog, fatigue, weakness management. 08/2022: Cognitive and memory changes, fatigue, insomnia, shortness of breath, cough, anxiety, depression, musculoskeletal pain, weakness -proceed with aquatherapy at [facility] as ordered by your orthopedic surgeon, after [...] PCP's referral to Psychology for Therapy at [facility], please let me know if you would [...] from immunology to get second COVID vaccine documented in this encounter [facility] Work Phone: 08-17-2024 History of Present illness Narrative Images from the original note were not included. FUV Virtual The virtual visit conducted with Audio and Video. Verbal consent was given for the following virtual visit, patient is currently located in [place]. All issues discussed and addressed below were done so without a physical examination. If it was felt the patient needed be seen in clinic in person they were directed there. Covid-19 infection date: July 2020 (sx: cough, SOB, fever - hospitalized at [facility] and treatd with Remdesivir, Decadron, Antibiotics, was on supplemental O2 for 10 days following hospitalization) Covid-19 vaccine status: Pfizer 02/2021, 08/2021, 06/2022 Occupation: retired Current Care Providers: PCP Dr. Rayo, Pulmonary Dr. Magana, Immunology Dr. Brown, Neurology Dr. Matthews and Dr. Miller, Pain Management Dr. Jiménez, Cardiology Dr. Park, ENT Dr. Ruffin [facility], Hematology at [facility], ENT at [facility] Survey scores: 12/2020 -> 08/2021 -> 05/2022 -> 10/2022 -> 01/2024 -> 07/2024 PHQ-9: 18 -> 18 -> 22 -> 17 -> 14 -> 12 MARY-7: 10 -> 10 -> 18 -> 18 -> 11 -> 10 Sleep Wellness: 7 -> 7 -> 7 -> 11 -> 5 -> 9 FSS average: 6 -> 6 -> 6 -> 5.889 -> 6.22 -> 6.78 Modified ECog average: 3 -> 3 -> 3.333 -> 3.25 -> 3.42 -> 3.17 MOCA: (12/2020) -> (05/2022) -> (01/2024) Overall Health: 15 -> 40 -> 61 -> 60 -> 60 -> 60 64 y.o. 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 SOB continues Recently started noticing that foods are not tasting correctly Weakness when walking anywhere or trying to have a conversation Difficulty sleeping, amitriptyline is not helping Napping 4 times per day, has oxygen in living room and bed room Working with Dr. Magana on lung care, has testing coming up May need oxygen when walking Brain fog is ongoing, mixing up words Pain levels have kailyn rough at times, especially in leg, standing up is difficult No longer in PT because he is only allowed 21 rehab sessions per year Mood has been better, has more space and air conditioner now Doing exercises at home, walking down street every day Pain management doctor and PCP are happy that he is walking, neurologist recommends doing much more Would like to work with OT and Long COVID Support Group Relevant Hx: -03/2021 sleep medicine referred to ENT for inspire therapy -05/2021 audiology for dizziness and hearing loss, patient was unable to complete testing as he could not keep his eyes open, gaze test and OPKs were normal, recommended follow up with neurology. -01/2022 ENT suspects throat discomfort is due to GERD and increased PPI dose, does not feel patient is a candidate for Inspire based on mild ANN and nocturnal O2 use -01/2022 shipping & receiving lead at OSH recommends iron infusions -08/2022 ENT at [facility] for dysphonia, evaluation notes mild irritation of the vocal fords with increased straining during phonation, 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 -10/2023 concussion clinic evaluation due to head injury in September, recommends rest and limit screen time -12/2023 Pulmonary for chronic fibrotic changes post COVID pna and chronic asthma, recommends follow up with oncology on unexplained weight loss, continue current inhalers and add budesonide as needed -12/2023 Neurology for migraine management, continue Botox and Aimovig -01/2024 Pain Management [place], continue current medications and as needed epidural steroid injections -06/2024 Allergy/Immunology prescribed prednisone taper for asthma exacerbation, restart budesonide nebulizer and Breztri, discussing valve surgery with Dr. 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 -06/2024 PharmD for Tezspire management -07/2024 Neurology gave Toradol for severe headache -07/2024 pulmonary ordered PFTs, 6MWT, nocturnal pulse oximetry study Imaging: -12/2020 CTA chest shows no PE, small left pleural effusion, extensive bilateral upper lobe GGO -02/2021 MRi brain shows mild senescent changes otherwise unremarkable -03/2021 PFTs revealed moderate restriction with a bronchodilator response, DLCO severely reduced consistent with interstitial change son the CT scan probably post-COVID and 6mwt -04/2021 audiology testing shows normal middle ear function and mild gradually sloping to moderate sensorineural hearing loss bilaterally -06/2021 HRCT shows overall stable faint GGO and parenchymal bands, no fibrosis, mild coronary artery calcifications, trace pericardial effusion -11/2021 CXR shows low lung volumes with similar appearing atelectasis at the left lung base compared to prior -12/2021 overnight oximetry -04/2022 CT head unremarkable -04/2022 HRCT shows persistent diffuse GG and bandlike opacities throughout the lungs similar to 2020, findings of multifocal air trapping, mild coronary artery calcification -05/2022 EGD shows patchy mild mucosal changes characterized by subtle scarring and altered texture found in the esophagus and stomach, biopsies taken -07/2022 CT sinus normal -08/2022 CT head and C-spine normal -08/2022 X-ray hip without fracture, mild degenerative changes -02/2023 echocardiogram with LVEF 55-60%, mild LVH, impaired relaxation pattern of LV diastolic filling, mild mitral valve regurgitation, mild tricuspid regurgitation, mild aortic valve regurgitation -03/2024 HRCT shows GGO with subpleural reticulation and multifocal areas of lobular air trapping similar to prior, mild coronary calcification Blood work: -01/2021 immunoglobulins, diphtheria antibody assay, tetanus Ab, H influenza B IgG, strep pneumococcal IgG Ab, SARS-CoV-2 nucleocapsid IgG Ab positive, immunodeficiency profile -05/2021 CBC/D with Hb 10.3, ESR, CRP, CMP with K 3.1, Iron studies low, BNP, TSH, AM cortisol 3.2, Vitamin B12, RF, MIRNA -06/2021 Respiratory allergy panel -08/2023 Vitamin B12, Folate -05/2024 CBC/D, Cmp, iron, Ferritin 22 Exercise: less often Diet: healthy less often Weight pre/post-COVID: currently 182lbs -> 170 lbs -> (Patient-Rptd) 185 lbs Substance use: denies Social: Current Outpatient Medications: albuterol 90 mcg/actuation inhaler, every 4 hours., Disp: , Rfl: amLODIPine (Norvasc) 5 mg tablet, Take 1 tablet (5 mg) by mouth once daily., Disp: , Rfl: atorvastatin (Lipitor) 40 mg tablet, Take 1 tablet (40 mg) by mouth once daily., Disp: , Rfl: azithromycin (Zithromax) 500 mg tablet, Take 1 pill Thursday, Thursday and Thursday, Disp: 12 tablet, Rfl: 5 qohixvnkzm-ofixbykz-fxrrebrzap (Breztri Aerosphere) 160-9-4.8 mcg/actuation HFA aerosol inhaler, Inhale 2 puffs 2 times a day., Disp: 10.7 g, Rfl: 11 celecoxib (CeleBREX) 200 mg capsule, TAKE 2 CAPSULES BY MOUTH TWICE A DAY, Disp: 360 capsule, Rfl: 1 cloNIDine (Catapres) 0.1 mg tablet, Take 1 tablet (0.1 mg) by mouth 2 times a day., Disp: , Rfl: fluticasone (Flonase) 50 mcg/actuation nasal spray, Administer 2 sprays into each nostril once daily., Disp: , Rfl: galcanezumab (Emgality Pen) 120 mg/mL auto-injector, Inject 120 mg (1 pen) under the skin every 28 (twenty-eight) days., Disp: 1 each, Rfl: 6 Gamunex-C 40 gram/400 mL (10 %) solution, , Disp: , Rfl: levalbuterol (Xopenex) 45 mcg/actuation inhaler, Inhale 1-2 puffs every 6 hours if needed for wheezing., Disp: 45 g, Rfl: 0 losartan (Cozaar) 100 mg tablet, Take 1 tablet (100 mg) by mouth early in the morning.., Disp: , Rfl: meclizine (Antivert) 12.5 mg tablet, Take 1 tablet (12.5 mg) by mouth if needed for dizziness., Disp: 30 tablet, Rfl: 3 methenamine hippurate (Hiprex) 1 gram tablet, Take 1 tablet (1 g) by mouth 2 times a day., Disp: , Rfl: metoprolol succinate XL (Toprol-XL) 25 mg 24 hr tablet, Daily, Disp: , Rfl: omeprazole (PriLOSEC) [address] capsule, TAKE 1 CAPSULE BY MOUTH EVERY 12 HOURS, Disp: 180 capsule, Rfl: 3 ondansetron (Zofran) 4 mg tablet, Take 2 tablets (8 mg) by mouth every 8 hours if needed for nausea or vomiting., Disp: , Rfl: oxygen (O2) gas therapy, 3.5 L/min., Disp: , Rfl: potassium chloride CR 20 mEq ER tablet, Take 1 tablet (20 mEq) by mouth 2 times a day., Disp: , Rfl: pregabalin (Lyrica) 100 mg capsule, Take 1 capsule (100 mg) by mouth twice a day., Disp: , Rfl: spironolactone (Aldactone) 50 mg tablet, Take 1 tablet (50 mg) by mouth once daily., Disp: , Rfl: SUMAtriptan (Imitrex) 100 mg tablet, Take 1 tablet (100 mg) by mouth 1 time if needed for migraine for up to 108 doses. No more than 2 triptan medications in 24 hours., Disp: 27 tablet, Rfl: 3 SUMAtriptan (Imitrex) 6 mg/0.5 mL injection, Inject 0.5 mL (6 mg) under the skin if needed for migraine for up to 18 doses. No more than 2 triptan medications in 24 hours., Disp: 3 mL, Rfl: 3 SUMAtriptan (Imitrex) 6 mg/0.5 mL injection, Inject 1 pen (0.5 mL) under the skin once if needed for migraine. May repeat dose after 1 hour if symptoms persist or return. Do not exceed max of 6 mg per dose or 12 mg per 24 hours. , Disp: 3 mL, Rfl: 6 tezepelumab-ekko (Tezspire) SubQ Pen Injector, Inject 1 pen (210 mg) under the skin every 28 (twenty-eight) days., Disp: 1.91 mL, Rfl: 5 topiramate (Topamax) 100 mg tablet, Take 1 tablet (100 mg) by mouth once daily. With 50mg, Disp: 90 tablet, Rfl: 3 topiramate (Topamax) 200 mg tablet, Take 1 tablet (200 mg) by mouth 2 times a day. 1 tab at dinner and 1 tab at bedtime, Disp: 180 tablet, Rfl: 3 topiramate (Topamax) 50 mg tablet, TAKE 1 TABLET BY MOUTH IN THE MORNING, 1 IN THE EVENING AND 1 AT BEDTIME WITH 200MG TABLET, Disp: 270 tablet, Rfl: 3 venlafaxine XR (Effexor-XR) 150 mg 24 hr capsule, TAKE 2 CAPSULES BY MOUTH ONCE DAILY WITH FOOD, Disp: 180 capsule, Rfl: 3 verapamil (Calan) 120 mg tablet, TAKE 1 TABLET BY MOUTH ONCE DAILY AT BEDTIME., Disp: 90 tablet, Rfl: 3 Past Medical History: Diagnosis Date Acute embolism and thrombosis of left femoral vein (Multi) 07/12/2020 Deep vein thrombosis (DVT) of femoral vein of left lower extremity, unspecified chronicity Acute embolism and thrombosis of unspecified deep veins of left lower extremity 06/09/2017 Deep vein blood clot of left lower extremity Asthma 1972 Bilateral primary osteoarthritis of knee 08/29/2020 Osteoarthritis of both knees Brain concussion 1977, 1977, 2009, 2017, 2022, 2023 Bronchiectasis 1967 Carpal tunnel syndrome, bilateral upper limbs 09/30/2016 Bilateral carpal tunnel syndrome Chronic bronchitis (Multi) 1967 Cluster headache 1974 COPD (chronic obstructive pulmonary disease) (Multi) 2018 COVID-19 COVID-19 Depression 2020, 2021, 2022, 2023 Diplopia 06/09/2017 Monocular diplopia of left eye Dysphagia 2020 Essential (primary) hypertension 02/28/2020 Benign essential hypertension GERD (gastroesophageal reflux disease) 2016 Headache, tension-type 1974 Hemicrania continua 07/12/2020 Hemicrania continua Insomnia e Interstitial lung disease (Multi) 2022 Memory loss 2020 Migraine with aura, not intractable, without status migrainosus 02/25/2017 Headache, classical migraine Movement disorder 2021 Numbness 2000 Other skin changes 11/18/2016 Other skin changes Other specified cough 02/23/2020 Cough productive of purulent sputum Other symptoms and signs involving the musculoskeletal system 02/23/2020 Severe muscle deconditioning Pain in thoracic spine Thoracic back pain Personal history of other diseases of the nervous system and sense organs 08/03/2018 History of tremor Personal history of other diseases of the nervous system and sense organs 07/12/2020 History of benign essential tremor Personal history of other diseases of the nervous system and sense organs 01/11/2018 History of hearing loss Personal history of other endocrine, nutritional and metabolic disease 08/04/2017 History of hypokalemia Personal history of other endocrine, nutritional and metabolic disease 02/28/2020 History of hyperlipidemia Personal history of other endocrine, nutritional and metabolic disease 07/01/2017 History of vitamin D deficiency Personal history of other endocrine, nutritional and metabolic disease 06/09/2017 History of hyperlipidemia Personal history of other infectious and parasitic diseases 08/04/2017 History of candidiasis of mouth Personal history of other specified conditions 02/28/2020 History of tachycardia Personal history of other specified conditions 07/12/2020 History of vertigo Personal history of pneumonia (recurrent) 09/05/2020 History of pneumonia Personal history of traumatic brain injury History of concussion Pneumonia 1966 Restless leg syndrome 1979 Sinusitis 1980 Spondylosis without myelopathy or radiculopathy, thoracic region 08/11/2017 Spondylosis without myelopathy or radiculopathy, thoracic region Stroke (Multi) 2017 TIA (transient ischemic attack) 2017 Tinnitus, bilateral 03/01/2018 Subjective tinnitus of both ears Tremor 1999 Unspecified adrenocortical insufficiency 12/23/2017 Adrenocortical insufficiency Unspecified subjective visual disturbances 06/09/2017 Disturbance, visual, subjective Weakness of limb 2020 - 2023 Past Surgical History: Procedure Laterality Date BRONCHOSCOPY 1976, 1982, 1991, 1998, 2010, 2017, 2019 KNEE SURGERY 12/26/2013 Knee Surgery LUMBAR LAMINECTOMY 07/08/2016 Laminectomy Lumbar OTHER SURGICAL HISTORY 12/06/2020 Colonoscopy OTHER SURGICAL HISTORY 12/06/2020 Bronchoscopy OTHER SURGICAL HISTORY 07/12/2020 Spinal surgery OTHER SURGICAL HISTORY 07/12/2020 Hip fracture repair OTHER SURGICAL HISTORY 07/12/2020 Hip replacement Family History Problem Relation Name Age of Onset Other (arteriosclerotic cardio disease) Mother Yanet Savedge Hypertension Mother Yanet Savedge Stroke Mother Yanet Savedge Arthritis Mother Yanet Savedge Alzheimer's disease Father Georgi Savedge Other (arteriosclerotic cardio disease) Father Georgi Savedge Heart disease Father Georgi Savedge Parkinsonism Father Georgi Savedge Dementia Father Georgi Savedge Stroke Father Georgi Savedge Other (arteriosclerotic cardio disease) Brother Alzheimer's disease Other grandmother Diabetes Other aunt Depression Paternal Grandmother Melissa Longoria Savedge Stroke Paternal Grandmother Melissa Longoria Savedge Stroke Father's Sister Carolina rodriguez Mary Stroke Father's Sister Carolina thomasSindi Hernandez Objective There were no vitals taken for this visit. Physical Exam Constitutional: Comments: no acute distress, alert/conversational, appropriate affect, no focal neurological deficits noted via video appointment Assessment/Plan Problem List Items Addressed This Visit ICD-10-CM High Post-acute sequelae of COVID-19 (PASC) - Primary U09.9 08/2024: brain fog, fatigue, poor sleep, shortness of breath, voice changes, anxiety and depression, musculoskeletal pain, deconditioning, taste changes -CBT-i Controls Design Engineer smartphone osorio by the [place] -continue close follow up with your specialists and their recommendations -consider virtual Occupational Therapy for Long COVID related fatigue and brain fog -consider restarting Physical Therapy 02/2023: brain fog, fatigue, poor sleep, shortness of breath, voice changes, anxiety and depression, musculoskeletal pain, deconditioning, taste changes -re-ordered PT, OT, and INVENTORY ASSOCIATE for deconditioning and vocal cord dysfunction. Printed [...] with Dr. Good -follow-up on referral to INVENTORY ASSOCIATE to address vocal cord dysfunction noted by ENT -referral to Physical Therapy and Occupational Therapy specifically for Long-COVID related symptoms including brain fog, fatigue, weakness management. 08/2022: Cognitive and memory changes, fatigue, insomnia, shortness of breath, cough, anxiety, depression, musculoskeletal pain, weakness -proceed with aquatherapy at [facility] as ordered by your orthopedic surgeon, after [...] PCP's referral to Psychology for Therapy at [facility], please let me know if you would [...] from immunology to get second COVID vaccine documented in this encounter [facility] Work Phone: 08-17-2024 Instructions CARSON Palacios - 08/17/2024 10:30 AM EDT It was my pleasure seeing you in the [facility] today. We will focus on addressing the following symptoms discussed today: brain fog, fatigue, poor sleep, shortness of breath, voice changes, anxiety and depression, musculoskeletal pain, deconditioning, taste changes My recommendations are as follows: -CBT-i Controls Design Engineer smartphone osorio by the [place] -continue close follow up with your specialists and their recommendations -consider virtual Occupational Therapy for Long COVID related fatigue and brain fog -consider restarting Physical Therapy Tips to help improve brain fog and fatigue: --avoid drinking Alcohol while recovering from Long COVID --Focus on eating whole foods to help support your gut and immune system. Aim to eat 30 different plants per week (vegetables, fruits, beans, nuts, legumes, seeds, whole grains, herbs, spices). Avoid processed foods and beverages. Eliminate added sugars, artificial sweeteners, processed oils, artificial dyes. --ensure to practice 30 minutes of exercise 7 days per week to keep BNDGF (brain derived neurotrophic growth factor) elevated as this will help in the regeneration of neurons, you may split exercise time up into 5 minute increments if this is better tolerated. --slowly increase your activity by no more than 10% per week, rest when you feel tired --utilize pacing techniques to manage fatigue, schedule rest times throughout the day so you do not run out of energy, more information to be found on this here: http://[email or web address]/nopjrr-vyht-qy te/Documents/post_covid-19_fatigu e.pdf --use the attention beam strategy to help you focus on some things while ignoring others. Imagine a flashlight beam illuminating the task that you are trying to focus on while leaving everything else in the dark. --minimize external distractions to help with attention. For example, turn off the TV, radio, music, heater, and other electrical equipment, and close the window to screen out traffic noise. Complete important or difficult tasks in a quiet room if possible. Switch off mobile phones, switch off automatic email notifications. Use ear plugs if necessary or noise-cancelling headphones. Reduce visual distractions by clearing off your work-space, sit opposite to a window. Make sure lighting in the workspace is adequate. --minimize internal distractions to help with attention. Thoughts, feelings, and physical sensations such as hunger or pain can be distracting. When you notice your attention beam is directed toward a thought or sensation, gently direct your attention back to the central focal point. You can also practice mindfulness and/or meditation to help reduce internal distractions --games that can be tried to help improve memory and attention are Brain HQ and N-Back games --mindfulness and meditation can be learned with the smartphone apps Unwinding Anxiety and Headspace --Review the Health Talk on Managing Fatigue and Thinking Changes after COVID-19 here: https://www.hospitals.org/Healt h-Talks/articles//managing -mtgsnuj-mqx-sciqpdzb-changes-aft er-covid-19 --You can also find many helpful tips and tricks in this book: The Long COVID self-help guide, practical ways to manage symptoms by [facility] Specialists from the [facility] [place] --additional apps, books, and podcasts for patients suffering from Long COVID can be found at https://www.[facility]/health wellness/public-health/long-covid /nfsc-hamuy-zacz-books-podcasts/ To help improve sleep: --try Melatonin children's liquid drops 1-2mg underneath your tongue 30 minutes before you go to bed --go to bed at the same time each night and get up at the same time each morning, including the weekend --goal of 7-9 hours of uninterrupted sleep per night --make sure your bedroom is quiet, dark, relaxing, and at a comfortable temperature --remove electronic devices, such as TVs, computers, and smart phones, from your bedroom --avoid caffeine after the morning and large meals before bed --drink plenty of water throughout the day but avoid drinking fluids two hours before bed --expose yourself to bright light in the morning --engage in a calming bed-time routine of warm bath/shower, gratitude journal, guided meditation, etc. --do not lay awake in bed for more than 20 minutes, get up and engage in a soothing activity such as reading a boring book until you feel sleepy General headache recommendations: -avoid common triggers which include red wine, dark beer, aged cheese, nuts, onions, chocolate, aspartame, processed meats and nitrates, excessive caffeine, caffeine withdrawal, fasting, skipping meals, barometric pressure change, bright light, poor air quality, odors -avoid overuse of OTC medications such as Ibuprofen, Naproxen, Excedrin, etc. as this can lead to rebound headaches -maintain a stable and consistent sleep schedule, even on weekends -stay well-hydrated with non-caffeinated beverages -avoid skipping r delaying meals -aim for 30 minutes of movement per day, find something you enjoy so it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 procedure, and agrees to continue currently prescribed/recommended therapies. Future Appointments Appointment Date:07/06/2024 09:30:00 AM Scheduled Provider:Issa Gonzales DO Location:[facility] Appointment Type:Pain Management - Follow Up () Appointment Date:09/06/2024 10:00:00 AM Scheduled Provider:JESSICA PAYTON PA-C Location:[facility] Appointment Type:URO Office Visit [facility] 01-30-2025 Evaluation + Plan note* Assessment & Plan Note - CARSON Montez - 06/02/2024 1:00 PM ESTAssociated Problem(s): Chronic migraine without aura, intractable, with status migrainosus Orders: ketorolac (Toradol) 10 mg tablet; Take 1 tablet (10 mg) by mouth every 6 hours for 5 days. ketorolac (Toradol) injection 60 mg [facility] Work Phone: [phone] Evaluation + Plan note* Assessment & Plan Note - CARSON Montez - 06/02/2024 1:00 PM ESTAssociated Problem(s): Chronic migraine without aura without status migrainosus, not intractable Orders: topiramate (Topamax) 200 mg tablet; Take 1 tablet (200 mg) by mouth 2 times a day. 1 tab at dinner and 1 tab at bedtime topiramate (Topamax) 100 mg tablet; Take 1 tablet (100 mg) by mouth once daily. With 50mg topiramate (Topamax) 50 mg tablet; TAKE 1 TABLET BY MOUTH IN THE MORNING, 1 IN THE EVENING AND 1 ATBEDTIME WITH 200MG TABLET [facility] Work Phone: [phone] History of Present illness Narrative* CARSON Montez - 06/02/2024 1:00 PM EST Chief Complaint Patient presents with Follow-up Migraine Headache started 05/26/24. And has yet to get relief. Treated with Sumatriptan Injection& tablet. Would like to try the Toradol protocol today. Dark room, no screens, has been trying to sleep. Subjective HPI Velia Bagley is a 64 y.o. year old male who presents with chief complaint Chronic migraine without aura without status migrainosus, not intractable [G43.709]. Velia is experiencing 20 JOHNS days per month, 12 of the HAs meet migraine criteria. Triggers are flashing lights & loud noises, & weather changes. Aura consisting of blurry vision and dizziness. Migraine occurs occipital, pulling sensation or behind right eye. Associated right arm weakness, light and noise sensitivity,nausea-Zofran is helpful. Headaches are worsened with exertion. Treats migraines with sumatriptan pill first, starts to work after 45 minutes, reduces migraine by 50%, if intense, will follow with injectable and lay down- effective to completely reduce. Sometimesthe migraine doesn't drop enough down, and will start to climb in intensity 3 to 4 hours later. Using Emgality, unsure if it has been effective. Botox every 90 days. Last one 05/11/24. Endorses that he had pain above the right eye after the last Botox injections. Working with the psychiatrist to decrease Effexor from 300 mg to 225 mg to 150 mg. (Velia wants to be off of it, states he has been on it for 4 years). Pain moved him to OxyContin 5 mg. Sleep: sleep has been horrible, having trouble falling and staying a sleep. Averages about 5 hours at night. Takes about a 3 hour nap in the afternoon from not sleeping well. Was doing Aimovig monthly but was switched to Emgality last visit (12/07/23). He states its much worse than the aimovig but is willing to try it for another month since it has not been that long since the switch over. Botox every 90 days. Last one 01/11/24. Patient had 15 headache days a month or more, 8 meeting migraine criteria. They had tried and failed 3 preventative and 3 abortives. Presently their headaches are well controlled because of Botox Therapy. It had reduced the headaches by 50%. Current/ past JOHNS treatments: Preventive: Botox Amitriptyline Emgality- has been on since Lyrica Verapamil Effexor Clonidine Flexeril Magnesium Topamax ------ Aimovig Vyepti- has not tried, not covered under formulary Rescue: acetazolamide Rizatriptan Sumatriptan injection Current Outpatient Medications: acetaZOLAMIDE (Diamox) 500 mg 12 hr capsule, TAKE 1 CAPSULE BY MOUTH AT NIGHT DURING A STORMY WEEK,Disp: 90 capsule, Rfl: 0 albuterol 90 mcg/actuation inhaler, every 4 hours., Disp: , Rfl: amitriptyline (Elavil) 100 mg tablet, Take 1 tablet (100 mg) by mouth once daily at bedtime., Disp:90 tablet, Rfl: 1 amLODIPine (Norvasc) 5 mg tablet, Take 1 tablet (5 mg) by mouth once daily., Disp: , Rfl: atorvastatin (Lipitor) 40 mg tablet, Take 1 tablet (40 mg) by mouth once daily., Disp: , Rfl: azithromycin (Zithromax) 500 mg tablet, Take 1 pill Thursday, Thursday and Thursday, Disp: 12 tablet, Rfl: 5 budesonide (Pulmicort) 0.5 mg/2 mL nebulizer solution, Take 2 mL (0.5 mg) by nebulization 2 times aday. Rinse mouth with water after use to reduce aftertaste and incidence of candidiasis. Do not swallow., Disp: 60 mL, Rfl: 11 acwylsevkt-kipzycmm-ghdqoatiax (Breztri Aerosphere) 160-9-4.8 mcg/actuation HFA aerosol inhaler, Inhale 2 puffs 2 times a day., Disp: 10.7 g, Rfl: 11 celecoxib (CeleBREX) 200 mg capsule, Take 2 capsules (400 mg) by mouth 2 times a day., Disp: 360 capsule, Rfl: 1 cloNIDine (Catapres) 0.1 mg tablet, Take 1 tablet (0.1 mg) by mouth 2 times a day., Disp: , Rfl: cyanocobalamin (Vitamin B-12) 1,000 mcg tablet, Take 1 tablet (1,000 mcg) by mouth once daily. As directed, Disp: , Rfl: cyclobenzaprine (Flexeril) 10 mg tablet, Take by mouth., Disp: , Rfl: DULoxetine (Cymbalta) [address] capsule, Take by mouth., Disp: , Rfl: ensifentrine (Ohtuvayre) 3 mg/2.5 mL suspension for nebulization, Inhale 3 mg 2 times a day., Disp:150 mL, Rfl: 3 fluticasone (Flonase) 50 mcg/actuation nasal spray, Administer 2 sprays into each nostril once daily., Disp: , Rfl: galcanezumab (Emgality Pen) 120 mg/mL auto-injector, Inject 120 mg (1 pen) under the skin every 28 (twenty-eight) days., Disp: 1 each, Rfl: 6 Gamunex-C 40 gram/400 mL (10 %) solution, , Disp: , Rfl: HYDROcodone-acetaminophen (Wentworth) 5-325 mg tablet, Take 1 tablet by mouth every 8 hours if needed for pain., Disp: , Rfl: levalbuterol (Xopenex) 1.25 mg/3 mL nebulizer solution, Take 3 mL by nebulization every 8 hours if needed for wheezing., Disp: 72 mL, Rfl: 0 levalbuterol (Xopenex) 45 mcg/actuation inhaler, Inhale 1-2 puffs every 6 hours if needed for wheezing., Disp: 45 g, Rfl: 0 losartan (Cozaar) 100 mg tablet, Take 1 tablet (100 mg) by mouth early in the morning.., Disp: , Rfl: magnesium oxide (Mag-Ox) 400 mg tablet, Take by mouth., Disp: , Rfl: meclizine (Antivert) 12.5 mg tablet, Take 1 tablet (12.5 mg) by mouth if needed for dizziness., Disp: 30 tablet, Rfl: 3 methenamine hippurate (Hiprex) 1 gram tablet, Take 1 tablet (1 g) by mouth 2 times a day., Disp: , Rfl: metoprolol succinate XL (Toprol-XL) 25 mg 24 hr tablet, Daily, Disp: , Rfl: omeprazole (PriLOSEC) [address] capsule, TAKE 1 CAPSULE BY MOUTH EVERY 12 HOURS, Disp: 180 capsule, Rfl: 3 onabotulinumtoxinA (Botox) 200 unit injection, 200 Units., Disp: , Rfl: ondansetron (Zofran) 4 mg tablet, Take 2 tablets (8 mg) by mouth every 8 hours if needed for nauseaor vomiting., Disp: , Rfl: oxygen (O2) gas therapy, 3.5 L/min., Disp: , Rfl: potassium chloride CR 20 mEq ER tablet, Take 1 tablet (20 mEq) by mouth 2 times a day., Disp: , Rfl: pregabalin (Lyrica) 100 mg capsule, Take 1 capsule (100 mg) by mouth twice a day., Disp: , Rfl: saliva stimulant comb. no.7 (Biotene Oralbalance, glycerin,) gel, Take 42 g by mouth., Disp: , Rfl: spironolactone (Aldactone) 50 mg tablet, Take 1 tablet (50 mg) by mouth once daily., Disp: , Rfl: SUMAtriptan (Imitrex) 100 mg tablet, Take 1 tablet (100 mg) by mouth 1 time if needed for migraine for up to 108 doses. No more than 2 triptan medications in 24 hours., Disp: 27 tablet, Rfl: 3 SUMAtriptan (Imitrex) 6 mg/0.5 mL injection, Inject 0.5 mL (6 mg) under the skin if needed for migraine for up to 18 doses. No more than 2 triptan medications in 24 hours., Disp: 3 mL, Rfl: 3 SUMAtriptan (Imitrex) 6 mg/0.5 mL injection, Inject 1 pen (0.5 mL) under the skin once if needed for migraine. May repeat dose after 1 hour if symptoms persist or return. Do not exceed max of 6 mg per dose or 12 mg per 24 hours. , Disp: 3 mL, Rfl: 6 tamsulosin (Flomax) 0.4 mg 24 hr capsule, Tamsulosin Active 0.8 MG PO Daily at bedtime July 28, 2021 11:00pm, Disp: , Rfl: tezepelumab-ekko (Tezspire) SubQ Pen Injector, Inject 1 pen (210 mg) under the skin every 28 (twenty-eight) days., Disp: 1.91 mL, Rfl: 5 topiramate (Topamax) 100 mg tablet, Take 1 tablet (100 mg) by mouth once daily. With 50mg, Disp: 90tablet, Rfl: 3 topiramate (Topamax) 200 mg tablet, Take 1 tablet (200 mg) by mouth 2 times a day. 1 tab at dinner and 1 tab at bedtime, Disp: 180 tablet, Rfl: 3 topiramate (Topamax) 50 mg tablet, TAKE 1 TABLET BY MOUTH IN THE MORNING, 1 IN THE EVENING AND 1 ATBEDTIME WITH 200MG TABLET, Disp: 270 tablet, Rfl: 3 venlafaxine XR (Effexor-XR) 150 mg 24 hr capsule, TAKE 2 CAPSULES BY MOUTH ONCE DAILY WITH FOOD, Disp: 180 capsule, Rfl: 3 verapamil (Calan) 120 mg tablet, Take 1 tablet (120 mg) by mouth once daily at bedtime., Disp: 90 tablet, Rfl: 2 biotin 1,000 mcg tablet,chewable, Chew 1 tablet once daily. (Patient not taking: Reported on 06/02/2024), Disp: , Rfl: Allergies Allergen Reactions Avocado Respiratory depression, Shortness of breath and Wheezing Diazepam Other, Unknown and Shortness of breath DEPRESSION Other reaction(s): Other (See Comments) DEPRESSION Grass Pollen Cough, Dermatitis, Runny nose, Shortness of breath and Wheezing Monosodium Glutamate Headache, Hives and Shortness of breath Aspartame Headache Baclofen Unknown and Myalgia Muscle weakness Weakness, dizziness Other reaction(s): Other (See Comments) Muscle weakness Weakness, dizziness Candesartan Other Cefdinir Other Chocolate Flavor Headache [place] Headache Diltiazem Other Iodine Hives and Unknown Other Unknown Iv contrast dye [place]ima Oil Unknown Ciprofloxacin Rash and Swelling Rash, tongue swelling Indomethacin Rash, Unknown and Hives Low BP hypotension Other reaction(s): Other (See Comments) Low BP hypotension Penicillins Rash, Unknown and Hives RASH rash Other reaction(s): Other (See Comments) RASH rash Propranolol Rash and Syncope Severe low bp and kidneys shutting down. hypotension Severe low bp and kidneys shutting down. hypotension Sulfa (Sulfonamide Antibiotics) Other and Rash HIVES Sob, rash Social History Tobacco Use Smoking status: Never Smokeless tobacco: Never Substance Use Topics Alcohol use: Never Social History Substance and Sexual Activity Drug Use Never ROS As noted in HPI, otherwise all other systems have been reviewed are negative for complaint. Objective General Appearance: Velia is well-developed, well-nourished, 64 y.o. year old male, in no acute distress. Makes good eye contact, is alert, interactive, and cooperative. Demonstrates recent & remote memory recall. Subjective information consistent with objective assessment. Vitals: 06/02/24 1307 BP: 138/82 Pulse: 76 Resp: 18 Temp: 36.4 C (97.6 F) TempSrc: Temporal PainSc: 7 PainLoc: Knee Comment: leg muscles, headache Lab Results Component Value Date WBC 7.6 11/29/2021 RBC 4.74 11/29/2021 HGB 12.6 (L) 02/24/2022 HCT 43.6 02/24/2022 PLT 256 11/29/2021 NA 135 (L) 11/30/2023 K 4.1 11/30/2023 CL 105 11/30/2023 BUN 29 (H) 11/30/2023 CREATININE 0.93 11/30/2023 EGFR >90 11/30/2023 CALCIUM 9.8 11/30/2023 ALKPHOS 115 11/30/2023 AST 16 11/30/2023 ALT 13 11/30/2023 MG 2.24 07/23/2018 [id number] 06/03/2021 [id number] 43 07/06/2017 TSH 1.48 06/03/2021 Neurological Exam Cranial Nerves CN III, IV, : Extraocular movements intact bilaterally. Normal lids and orbits bilaterally. CN VII: Full and symmetric facial movement. CN VIII: Hearing is normal. Assessment & Plan Chronic migraine without aura without status migrainosus, not intractable Orders: topiramate (Topamax) 200 mg tablet; Take 1 tablet (200 mg) by mouth 2 times a day. 1 tab at dinner and 1 tab at bedtime topiramate (Topamax) 100 mg tablet; Take 1 tablet (100 mg) by mouth once daily. With 50mg topiramate (Topamax) 50 mg tablet; TAKE 1 TABLET BY MOUTH IN THE MORNING, 1 IN THE EVENING AND 1 ATBEDTIME WITH 200MG TABLET Chronic migraine without aura, intractable, with status migrainosus Orders: ketorolac (Toradol) 10 mg tablet; Take 1 tablet (10 mg) by mouth every 6 hours for 5 days. ketorolac (Toradol) injection 60 mg ASSESSMENT/PLAN: Had switched from rizatriptan to sumatriptan (nasal and/or oral), feels that it works better. Will continue. Plan to continue Botox / Toradol protocol every 90 days. Noticing wear-off of Emgality. Increase frequency to every 21 days- next injection will be due 06/16/2024 (sample provided today). Toradol protocol today for intractable migraine x 1 week. Keep next Botox appointment I personally spent 55 minutes today, exclusive of procedures, providing care for this patient, including preparation, face to face time, documentation and other services such as review of medical records, diagnostic result, patient education, counseling, coordination of care as specified in the encounter. @ME@ documented [facility] Work Phone: [phone]) 254-312001-30-2025 Instructions* Patient Instructions* CARSON Montez - 06/02/2024 1:00 PM EST Dear Velia, Thank you for coming to [facility]. It was a pleasure caring for you today. The best way to contact me for medication refills or questions about your care is through [employer]. Otherwise, you can contact the office by phone: . CARSON Montez You received Toradol (ketorolac) today for your severe headache. We are going to continue with 5 days of pills starting tomorrow to break your headache cycle. Take 1 pill with breakfast, lunch, dinner & at bedtime for 5 days. Please take with food. Try to avoid taking your triptan or antiinflammatory medication during this time. If you have any nausea or diarrhea with the medication, stop & send a message via [employer], or call the next business day. documented in this [facility] Work Phone: [phone]) 786-292801-30-2025 Miscellaneous Notes* Assessment & Plan Note - CARSON Montez - 06/02/2024 1:00 PM ESTAssociated Problem(s): Chronic migraine without aura, intractable, with status migrainosus Orders: ketorolac (Toradol) 10 mg tablet; Take 1 tablet (10 mg) by mouth every 6 hours for 5 days. ketorolac (Toradol) injection 60 mg * Assessment & Plan Note - CARSON Montez - 06/02/2024 1:00 PM EST Associated Problem(s): Chronic migraine without aura without status migrainosus, not intractable Orders: topiramate (Topamax) 200 mg tablet; Take 1 tablet (200 mg) by mouth 2 times a day. 1 tab at dinner and 1 tab at bedtime topiramate (Topamax) 100 mg tablet; Take 1 tablet (100 mg) by mouth once daily. With 50mg topiramate (Topamax) 50 mg tablet; TAKE 1 TABLET BY MOUTH IN THE MORNING, 1 IN THE EVENING AND 1 ATBEDTIME WITH 200MG TABLET documented in this encounterTri[facility] Work Phone: [phone] Evaluation note* Diagnosis Onset Date Resolution Status Admit Date Bilateral primary osteoarthr itis of knee acute May 31 1:13pm Iron deficiency anemia secon jd to blood loss (chronic) acute May 31, 2024 2:52pm Iron deficiency anemia secon jd to blood loss (chronic) acute May 31, 2024 3:05pm Asthma acute July 07 10:29am Bilateral primary osteoarthr itis of knee acute July 07, 2024 10:29am Migraines acute July 07 10:29am Pernicious anemia acute July 072024 10:29am Wellness examination acute 2024 10:29am Bilateral primary osteoarthr itis of knee acute July 07, 2024 1:21pm [facility] Work Phone: [phone]) 765-950701-08-2025 History of Present illness Narrative* Jodie Matthews MD - 05/11/2024 11:00 AM ESTAssociated Order(s): Head/Face/Jaw Botulinum Injection Post-Procedure Diagnose(s): Intractable chronic migraine without aura and with status migrainosus Patient ID: Velia Bagley is a 64 y.o. male. Head/Face/Jaw Botulinum Injection Date/Time: 05/11/2024 1:32 PM Performed by: Jodie Matthews MD Authorized by: Jodie Matthews MD Consent: Consent obtained: Verbal Consent given by: Patient Procedure details: EMG used? No Electrical stimulation used? No Diluted by: Preservative free saline Medications: 100 Units onabotulinumtoxinA 100 unit; 100 Units onabotulinumtoxinA 100 unit Total units available: [...] 24 hours. If there is discomfort, ice forthe first 24 hour,s heat after that. Headaches may worsen, or you may experience neck stiffness. Ifthis occurs use your usual headache medication or a mild anti inflammatory such as advil or aleve. Please call if you have difficulty swallowing. You received Toradol today for your severe headache. We are going to continue with 5 day of pills starting tomorrow to break your headache cycle. Take 1 pill with breakfast lunch dinner and bedtime for 5 days. Take with food. Try not to take your triptan or antiinflammatory during this time. If you have any nausea or diarrhea with the medicinestop and call on the next business day. documented in this [facility] Work Phone: [phone] 174-888001-08-2025 Instructions* Patient Instructions* Lauren Galeas RN - 05/11/2024 11:00 AM EST Please do not rub areas for 24 hours. No pressure above eyebrows for 24 hours. Watch out for helmets, headlamps, headbands, goggles, or massage for 24 hours. If there is discomfort, ice for the first24 hour,s heat after that. Headaches may worsen, or you may experience neck stiffness. If this occurs use your usual headache medication or a mild anti inflammatory such as advil or aleve. Please call if you have difficulty swallowing. You received Toradol injection in the office today to break a migraine headache cycle. Also called ketorolac . Tomorrow you are to start taking oral Toradol/Ketoralac 4 times daily with food for 5 days.Don't take any other NSAIDs (Aleve, ibuprofen, Motrin, naproxen) during 5 days of Toradol. Avoid all other rescue medications if possible to break any overuse cycle. documented in this [facility]Tri[facility] Work Phone: [phone] 355-204801-06-2025 NoteConsultation Note Patient is presenting with complaints of neck pain low back pain and bilateral lower extremity pain. His neck pain is axial in nature and has been exacerbated by his most recent falls over the past few weeks. He states that he has not had loss of consciousness and has not had any other symptoms other intensification of his neck pain. We discussed that we do not have any recent imaging of his neckhe rates his pain as a 6/10 presently in his neck worse with twisting turning and bending he has achy/stiff sensation without any radicular symptoms. In his low back he has radicular symptoms in his bilateral lower extremity worse on the left than the right rated as a 6/10 presently but 10/10 with as worse. He also has diminished ambulatory send secondary to his pain in his back and bilateral lower extremities. He did very well with an L5/S1 interlaminar epidural steroid injection in the past and would like to receive this injection again as it helped his pain in the past VERONICA Score: 49% Patient denies any symptoms of progressively worsening upper/lower extremity weakness, progressively worsening gait abnormality, new onset bowel/bladder incontinence/ urinary retention, or saddle anesthesia. No new or worsening symptoms of fever, chills, night sweats. 14 Point Review of systems negative unless otherwise noted. General: No acute distress. Patient appears well-nourished. HEENT: Head is normocephalic and external ears are normal in appearance. Cardiovascular: No signs of poor perfusion and no peripheral edema Pulmonary: Nonlabored breathing, symmetric chest movement. GI: Abdomen nondistended Integumentary: No lesions Neurologic: Alert, oriented x3. 5/5 strength grossly in the bilateral upper extremities. Sensation intact to light touch in the bilateral upper extremities. 5/5 strength grossly in the bilateral lower extremities. Sensation intact to light touch in the bilateral lower extremities. MSK/Special Testing: Negative Rubio sign bilateral, positive straight leg raise test bilaterally. Tenderness palpation and hypertonicity in the cervical paraspinal muscular with cervical facet loading reproducing axial neck pain bilaterally. History, physical examination, and personal review of pertinent imaging results indicate a diagnosis of: -Lumbar stenosis with neurogenic location -ANN radiculopathy -Cervical spine arthropathy -Myofascial pain Plan: -Will schedule him for an L5/S1 interlaminar epidurals or injection under fluoroscopic guidance as this would provide significantly for the past and symptoms that since return he would like to repeatthis injection as he felt no significant beneficial -We will obtain a cervical spine x-ray and a prescribed home exercise program, we consider cervicalmedial branch blocks in the future to target C3/4 and C4/5 facet joints under fluoroscopic guidancein anticipation of radiofrequency ablation if his cervical pain still persist -We also discussed his opioid medications, we discussed that we could consider making a dose adjustment and change to medications as he felt the oxycodone was more beneficial than Wentworth we may consider prescribed oxycodone 5 mg / 325 mg 3 times per day at his next refill as opposed to hydrocodone. This would represent an increase in the medication as well as we may consider prescribing 1/2 tablet of oxycodone 5/3 if still requiring higher efficacy we will plan to prescribe oxycodone 5/305 mg 3 times a day 1/2 to 1 tablet taken up to 3 times a day as needed 25 mg 3 times a day first and can increase the dose to further from there as we may need to reduce the dose of the medication for cross tolerance. Patient was counseled on the above diagnosis and treatment, all questions were answered and patientagrees to adhere to the plan above. Risk and benefits of appropriate procedures and medications were reviewed as well with patient, who voiced understanding and agreeance. Patient was counseled on appropriate use of opioids if prescribed or renewed today and naloxone was offered to patient if opioids were prescribed or maintained at this visit. PHQ-2 scoring reviewed with patient and discussed seeking treatment for depression or mood disorder as appropriate. Patient was counseled on smoking cessation and/or continuing to abstain from nicotine/tobacco products as appropriate based on history; as smoking/nicotine can contribute to increased pain overall and decreased wound healing. Patient counseled on maintaining a healthy BMI as part of the total treatment of their pain and to reduce stress/strain on joints. Patient invited to return or call with any questions or concerns that arise.Regional [facility] CenterComment on above:Result Comment: Electronically Signed By: Issa Gonzales DO\.br\Date and Time Signed: 05/09/24 15:12 [id number] Evaluation + Plan noteExtracted from: Title:chronic pain Author:Issa Gonzales DO Date:05/09/24 Patient is presenting with c omplaints of neck pain low back pain and bilateral lower extremity pain. His neck pain is axial in nature and has been exacerbated by his most recent falls over the past few weeks. He states that he has not had loss of consciousness and has not had any other symptoms other intensification of his neck pain. We discussed that we do not have any recent imaging of his neck he rates his pain as a 6/10 presently in his neck worse with twisting turning and bending he has achy/stiff sensation without any radicular symptoms. In his low back he has radicular symptoms in his bilateral lower extremity worse on the left than the right rated as a 6/10 presently but 10/10 with as worse. He also has diminished ambulatory send secondary to his pain in his back and bilateral lower extremities. He did very well with an L5/S1 interlaminar epidural steroid injection in the past and would like to receive this injection again as it helped his pain in the past VERONICA Score: 49% Patient denies any symptoms of progressively worsening upper/lower extremity weakness, progressively worsening gait abnormality, new onset bowel/bladder incontinence/ urinary retention, or saddle anesthesia. No new or worsening symptoms of fever, chills, night sweats. 14 Point Review of systems negative unless otherwise noted. General: No acute distress. Patient appears well-nourished. HEENT: Head is normocephalic and external ears are normal in appearance.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 for several episodes of diarrhea. Patient denies having had any diarrhea. He and his son would like to move to [place] but their illnesses prevent them from doing so. Patient had a rash after having penicillin and he notes he had chicken pox afterwards. He is not sure if he can take doxycycline. Review of Systems Respiratory: Positive for cough (productive of phlegm). Gastrointestinal: Negative for diarrhea. Objective BP 123/79 Pulse 82 Wt 81.6 kg (180 lb) SpO2 94% BMI 26.58 kg/m Physical Exam Constitutional: Appearance: Normal appearance. HENT: Head: Normocephalic and atraumatic. Right Ear: External ear normal. There is no impacted cerumen. Left Ear: External ear normal. There is no impacted cerumen. Nose: No congestion or rhinorrhea. Eyes: Extraocular Movements: Extraocular movements intact. Conjunctiva/sclera: Conjunctivae normal. Pupils: Pupils are equal, round, and reactive to light. Cardiovascular: Rate and Rhythm: Normal rate and regular rhythm. Heart sounds: No murmur heard. No friction rub. No gallop. Pulmonary: Effort: No respiratory distress. Breath sounds: No wheezing, rhonchi or rales. Skin: General: Skin is warm and dry. Neurological: Mental Status: He is alert. Psychiatric: Mood and Affect: Mood normal. Behavior: Behavior normal. Pulmonary Functions Testing Results: FEV1 Date Value Ref Range Status 02/16/2024 40 liters Final FVC Date Value Ref Range Status 02/16/2024 33 liters Final FEV1/FVC Date Value Ref Range Status 02/16/2024 120 % Final Assessment/Plan Asthma with chronic obstructive pulmonary disease (COPD) (Multi) ACT is 8. He is having an [...] a day while you are taking prednisone. GERD without esophagitis He is complaining of increased heartburn despite taking omeprazole. I would like him to increase omeprazole to twice a day while he is taking prednisone. 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 Decreased in infections with immunoglobulin infusions. By signing my name below, I, Alida Zamora, attest that this documentation has been prepared under the direction and in the presence of Courtney Brown MD. All medical record entries made by the Scribe were at my direction and personally dictated by me. I have reviewed the chart and agree that the record accurately reflects my personal performance of the history, physical exam, discussion and plan. [facility] Work Phone: [phone] [phone] Instructions* Patient Instructions* Courtney Brown MD - 02/16/2024 10:00 AM EDT Continue budesonide nebulizer and Breztri twice a day. Continue Xopenex inhaler or MDI every 4 hours as needed Increase omeprazole to twice a day while you are taking prednisone. Follow up 03-08-24 at 9:30 am unless symptoms worsen prior. Start new prednisone taper Start Doxycycline 100 mg Twice a day [facility] Work Phone: [phone] Evaluation + Plan noteExtracted from: Title:chronic pain Author:Issa Gonzales DO Date:01/18/24 Patient is presenting with h istory of lumbar stenosis with neurogenic claudication and lumbosacral radiculopathy. He is status post L5/S1 interlaminar epidural steroid injection on 12/29/2023. This provided 80% relief for 3 weeks now 50% ongoing. He states that he is significantly better after this injection he is very happy with the results as he feels that he can ambulate longer and further without as much pain. We also reviewed his medications he is currently taking Flexeril as well as pregabalin which are helpful reducing his pain. He takes Wentworth typically but he is taking oxycodone 0.5 tablets of the 5 mg / 325 mg 3 times per day. He feels that this is reducing his pain by least 50% when taking his medications. He feels that Wentworth was slightly more helpful and would like to continue back on that medication when we are able to as there is a national shortage per his pharmacy on Wentworth medications which is the reason we switched to oxycodone for him. VERONICA Score: 27% PHQ-2: 4 Patient denies any symptoms of progressively worsening upper/lower extremity weakness, progressively worsening gait abnormality, new onset bowel/bladder incontinence/ urinary retention, or saddle anesthesia. No new or worsening symptoms of fever, chills, night sweats. 14 Point Review of systems negative unless otherwise noted. General: No acute distress. Patient appears well-nourished. HEENT: Head is normocephalic and external ears are normal in appearance. Cardiovascular: No signs of poor perfusion and no peripheral edema Pulmonary: Nonlabored breathing, symmetric chest movement. GI: Abdomen nondistended Integumentary: No lesions Neurologic: Alert, oriented x3. 5/5 strength grossly in the bilateral upper extremities. Sensation intact to light touch in the bilateral upper extremities. 5/5 strength grossly in the bilateral lower extremities. Sensation intact to light touch in the bilateral lower extremities. MSK/Special Testing: Negative rubio sign bilaterally, seated straight leg raise test not reproduce circulations bilaterally. Mild tenderness palpation lumbar paraspinal musculature with noted hypertonicity in lumbar paraspinal muscular region. History, physical examination, and personal review of pertinent imaging results indicate a diagnosis of: -Lumbar stenosis with neurogenic claudication -Lumbar radiculopathy - Plan: -we will refill his Lyrica as well as oxycodone 5/325 mg that he is taking 1/2 tablet 3 times a day due to a Wentworth shortage which we are continuing him on this medication until we can resume his Wentworth medication -We can refill his Flexeril on an as-needed basis -Urine drug screen updated and appropriate, naloxone offered declined, OARRS reviewed and appropriate, follow-up in 3 months or sooner if any issues arise -As needed L5/S1 interlaminar epidural steroid injection Patient was counseled on the above diagnosis and treatment, all questions were answered and patient agrees to adhere to the plan above. Risk and benefits of appropriate procedures and medications were reviewed as well with patient, who voiced understanding and agreeance. Patient was counseled on appropriate use of opioids if prescribed or renewed today and naloxone was offered to patient if opioids were prescribed or maintained at this visit. PHQ-2 scoring reviewed with patient and discussed seeking treatment for depression or mood disorder as appropriate. Patient was counseled on smoking cessation and/or continuing to abstain from nicotine/tobacco products as appropriate based on history; as smoking/nicotine can contribute to increased pain overall and decreased wound healing. Patient counseled on maintaining a healthy BMI as part of the total treatment of their pain and to reduce stress/strain on joints. Patient invited to return or call with any questions or concerns that arise. Future Appointments Appointment Date:04/18/2024 12:30:00 PM Scheduled Provider:Issa Gonzales DO Location:[facility] Appointment Type:Pain Management - Follow Up (FT) Appointment Date:09/06/2024 10:00:00 AM Scheduled Provider:JESSICA PAYTON PA-C Location:[facility] Appointment Type:URO Office Visit [facility] 09-16-2024 NoteConsultation Note Patient is presenting with history of lumbar stenosis with neurogenic claudication and lumbosacral radiculopathy. He is status post L5/S1 interlaminar epidural steroid injection on 12/29/2023. This provided 80% relief for 3 weeks now 50% ongoing. He states that he is significantly better after this injection he is very happy with the results as he feels that he can ambulate longer and further without as much pain. We also reviewed his medications he is currently taking Flexeril as well as pregabalin which are helpful reducing his pain. He takes Wentworth typically but he is taking oxycodone 0.5 tablets of the 5 mg / 325 mg 3 times per day. He feels that this is reducing his pain by least 50% when taking his medications. He feels that Wentworth was slightly more helpful and would like to continue back on that medication when we are able to as there is a national shortage per his pharmacy on Norcomedications which is the reason we switched to oxycodone for him. VERONICA Score: 27% PHQ-2: 4 Patient denies any symptoms of progressively worsening upper/lower extremity weakness, progressively worsening gait abnormality, new onset bowel/bladder incontinence/ urinary retention, or saddle anesthesia. No new or worsening symptoms of fever, chills, night sweats. 14 Point Review of systems negative unless otherwise noted. General: No acute distress. Patient appears well-nourished. HEENT: Head is normocephalic and external ears are normal in appearance. Cardiovascular: No signs of poor perfusion and no peripheral edema Pulmonary: Nonlabored breathing, symmetric chest movement. GI: Abdomen nondistended Integumentary: No lesions Neurologic: Alert, oriented x3. 5/5 strength grossly in the bilateral upper extremities. Sensation intact to light touch in the bilateral upper extremities. 5/5 strength grossly in the bilateral lower extremities. Sensation intact to light touch in the bilateral lower extremities. MSK/Special Testing: Negative rubio sign bilaterally, seated straight leg raise test not reproduce circulations bilaterally. Mild tenderness palpation lumbar paraspinal musculature with noted hypertonicity in lumbar paraspinal muscular region. History, physical examination, and personal review of pertinent imaging results indicate a diagnosis of: -Lumbar stenosis with neurogenic claudication -Lumbar radiculopathy - Plan: -we will refill his Lyrica as well as oxycodone 5/325 mg that he is taking 1/2 tablet 3 times a daydue to a Wentworth shortage which we are continuing him on this medication until we can resume his Wentworth medication -We can refill his Flexeril on an as-needed basis -Urine drug screen updated and appropriate, naloxone offered declined, OARRS reviewed and appropriate, follow-up in 3 months or sooner if any issues arise -As needed L5/S1 interlaminar epidural steroid injection Patient was counseled on the above diagnosis and treatment, all questions were answered and patientagrees to adhere to the plan above. Risk and benefits of appropriate procedures and medications were reviewed as well with patient, who voiced understanding and agreeance. Patient was counseled on appropriate use of opioids if prescribed or renewed today and naloxone was offered to patient if opioids were prescribed or maintained at this visit. PHQ-2 scoring reviewed with patient and discussed seeking treatment for depression or mood disorder as appropriate. Patient was counseled on smoking cessation and/or continuing to abstain from nicotine/tobacco products as appropriate based on history; as smoking/nicotine can contribute to increased pain overall and decreased wound healing. Patient counseled on maintaining a healthy BMI as part of the total treatment of their pain and to reduce stress/strain on joints. Patient invited to return or call with any questions or concerns that arise.[facility] CenterComment on above:Result Comment: Electronically Signed By: Issa Gonzales DO.br\Date and Time Signed: 01/18/24 12:17 [id number] History of Present illness Narrative* Jodie Matthews MD - 01/11/2024 2:30 PM EDTAssociated Order(s): Head/Face/Jaw Botulinum Injection Post-Procedure Diagnose(s): Intractable chronic migraine without aura and with status migrainosus Patient ID: Velia Bagley is a 63 y.o. male. Head/Face/Jaw Botulinum Injection Date/Time: 01/11/2024 2:37 PM Performed by: Jodie Matthews MD Authorized by: Jodie Matthews MD Consent: Consent obtained: Verbal Consent given by: Patient Procedure details: EMG used? No Electrical stimulation used? No Diluted by: Preservative free saline Toxin (Brand): OnaBoNT-A (Botox) Total units available: 200 Ad hoc region [...] 24 hours. If there is discomfort, ice forthe first 24 hour,s heat after that. Headaches may worsen, or you may experience neck stiffness. Ifthis occurs use your usual headache medication or a mild anti inflammatory such as advil or aleve. Please call if you have difficulty swallowing. You received Toradol today for your severe headache. We are going to continue with 5 day of pills starting tomorrow to break your headache cycle. Take 1 pill with breakfast lunch dinner and bedtime for 5 days. Take with food. Try not to take your triptan or antiinflammatory during this time. If you have any nausea or diarrhea with the medicinestop and call on the next business day. [facility] Work Phone: [phone]) 179-891509-09-2024 Instructions* Patient Instructions* Lauren Galeas RN - 01/11/2024 2:30 PM EDT Please do not rub areas for 24 hours. No pressure above eyebrows for 24 hours. Watch out for helmets, headlamps, headbands, goggles, or massage for 24 hours. If there is discomfort, ice for the first24 hour,s heat after that. Headaches may worsen, or you may experience neck stiffness. If this occurs use your usual headache medication or a mild anti inflammatory such as advil or aleve. Please call if you have difficulty swallowing. [facility] Work Phone: [phone]) 737-431808-27-2024 Evaluation + Plan noteExtracted from: Title:L5/S1 interlaminar epi dural steroid injection Author:Issa Gonzales DO. Date:12/29/23 Diagnosis: M54.17, lumbar ra diculopathy Procedure: L5/S1 lumbar interlaminar epidural steroid injection under fluoroscopic guidance Anesthesia: Local Complications: none After informed consent was obtained, the patient was brought to the procedure suite and placed in the prone position. Pulse oximetry and blood pressure were monitored throughout. Low back areas prepped and draped in the usual sterile fashion. Using fluoroscopic guidance, the skin and subcutaneous tissue overlying the needle trajectory were anesthetized with 2% lidocaine. A 17-gauge Touhy needle was inserted and directed by fluoroscopy. Entry into the epidural space was confirmed using the [id number] technique and 2 cc of air. Injection of contrast revealed appropriate spread without vascular uptake. 4 mL of normal saline plus 40 mg of methylprednisolone was then injected. The needle was removed and the patient was then transferred to the recovery room in stable condition. The patient tolerated the procedure well. There were no apparent complications. Follow-up: The patient will update us on the response to this procedure, and agrees to continue currently prescribed/recommended therapies. Future Appointments Appointment Date:01/18/2024 11:15:00 AM Scheduled Provider:Issa Gonzales DO Location:[facility] Appointment Type:Pain Management - Follow Up (FT) Appointment Date:09/06/2024 10:00:00 AM Scheduled Provider:EJSSICA PAYTON PA-C Location:[facility] Appointment Type:URO Office Visit [facility] 08-27-2024 NoteOperative Report Diagnosis: M54.17, lumbar radiculopathy Procedure: L5/S1 lumbar interlaminar epidural steroid injection under fluoroscopic guidance Anesthesia: Local Complications: none After informed consent was obtained, the patient was brought to the procedure suite and placed in the prone position. Pulse oximetry and blood pressure were monitored throughout. Low back areas prepped and draped in the usual sterile fashion. Using fluoroscopic guidance, the skin and subcutaneous tissue overlying the needle trajectory were anesthetized with 2% lidocaine. A 17-gauge Touhy needle was inserted and directed by fluoroscopy. Entry into the epidural space was confirmed using the [id number]-[id number] technique and 2 cc of air. Injection of contrast revealed appropriate spread without vascular uptake. 4 mL of normal saline plus 40 mg of methylprednisolone was then injected. The needlewas removed and the patient was then transferred to the recovery room in stable condition. The patient tolerated the procedure well. There were no apparent complications. Follow-up: The patient will update us on the response to this procedure, and agrees to continue currently prescribed/recommended therapies.[facility] Comment on above:Result Comment: Electronically Signed By: Issa Gonzales DO\.br\Date and Time Signed: 12/29/23 08:56 [id number] Evaluation + Plan note Extracted from: Title:Pain Managment Follow up Author:Barbara Easley Date:12/04/23 Impression and Plan Patient is a 63-year-old male with a past medical history seen for lumbar stenosis and lumbosacral neuritis. He is delayed in his follow-up as he got sick after his last injection but he states that it worked very well for him. He underwent an L5-S1 epidural steroid injection done on 07/08/2023 that gave him 70% relief. He had 70% relief for over 3 months. Unfortunate, at this time he is having right greater than left radiating leg pain. This is affecting his ambulatory status. This is affecting his quality of life. This is affecting his activities and affecting his ability to do things he wants to do. Based on his failure to improve with conservative treatments as well as the significant response he got from the previous injection and the pain pattern that has returned I recommended to patient repeating the L5-S1 epidural steroid injection under fluoroscopy for both diagnostic and therapeutic purposes. Procedure was discussed. Risk and benefits were discussed. Patient is agreeable. He will follow-up 2 weeks after the injection for reevaluation. Call clinic in the interim should he require anything from our services. In the meantime we will continue on his medications Flexeril 10 mg at bedtime as needed for pain, Wentworth 5/325 1 p.o. 3 times daily as needed pain and Lyrica 100 mg twice daily. OARRS reviewed. Refill sent. Narcan offered and declined. We will obtain an updated UDS today for compliance purposes. Follow-up as above-mentioned. VERONICA score: 51%. Future Appointments Appointment Date:09/06/2024 10:00:00 AM Scheduled Provider:JESSICA PAYTON PA-C Location:[facility] Appointment Type:URO Office Visit [facility] 08-02-2024 NoteConsultation Note Patient: VELIA BAGLEY Age: 63 years Sex: Male : 1960 Associated Diagnoses: None Author: Barbara Duron PA-C Subjective Chief complaint 12/04/2023 10:29 EDT Back Pain . Patient is a 63-year-old male. He presents today for another follow-up after undergoing L5?S1 epidural steroid injection. This was done on 07/08/2023 and gave him 70% relief. Unfortunately, he was delayed in follow-up because he got sick. He was in the hospital. He had pneumonia and he had some otherissues. He has had weight issues. He states that his liver is being looked at and he has some testing that has been being ordered. At this time he has entire spinal axis pain as well as right greaterthan left radiating leg pain. He also has headaches. The headaches are treated by neurology. He gets Botox with them. He states that the leg pain was much better after the epidural and he wonders about having this done again. He uses Flexeril 10 mg at bedtime as needed for pain, Wentworth 5/325 1 p.o. 3 times daily as needed pain and Lyrica 100 mg twice daily. These medications do help him. He is requesting refills today. At this time, he rates his discomfort a 6/10. Affects his ambulatory status. Affects his quality life. Affects his activities and affects his ability to do things he wants to do. Health Status Allergies: Allergic Reactions (Selected) Severity Not Documented Baclofen- Weakness. Ciprofloxacin- Hives. Indocin- Rash and hives. Penicillins- Hives. Propranolol- Hypotension. Sulfa drugs- Rash., Allergies (6) Active Severity Reaction penicillins Hives ciprofloxacin Hives Indocin Hives, Rash baclofen Weakness sulfa drugs Rash propranolol Hypotension Current medications: (Selected) Prescriptions Prescribed Lyrica 100 mg Cap: 100 mg = 1 cap(s), Oral, BID, # 180 cap(s), Refills(s) 0, Pharmacy: [facility]/pharmacy#[id number], 175, cm, 12/04/23 10:56:00 EDT, Height/Length Dosing, 74, kg, 12/04/23 10:56:00 EDT, Weight Dosing Wentworth 325 mg-5 mg oral tablet: 1 tab(s), Oral, TID as needed for pain, 90 tab(s), Refill(s) 0, [facility]/pharmacy #[id number], 175, cm, 12/04/23 10:56:00 EDT, Height/Length Dosing, 74, kg, 12/04/23 10:56:00 EDT,Weight Dosing cyclobenzaprine 10 mg Tab: 10 mg = 1 tab(s), Oral, Bedtime, PRN for spasm, # 90 tab(s), Refills(s) 0, Pharmacy: [facility]/pharmacy #[id number], 175, cm, 12/04/23 10:56:00 EDT, Height/Length Dosing, 74, kg, 12/04/23 10:56:00 EDT, Weight Dosing no lifting >30lbs, no bending to the ground, no using ramp unless necessary: no lifting >30lbs, no bending to the ground, no using ramp unless necessary, Print Requisition, Supply Documented Medications Documented Aimovig SureClick Autoinjector-aooe 140 mg/mL subcutaneous solution: Refills(s) 0 Biotene Oral Balance oral gel: Refill(s) 0 Botox 200 units injection: 200 unit(s), IntraMuscular, q3mo, # 1 EA, Refills(s) 0 Breztri Aerosphere inhalation aerosol: Refill(s) 0 Fasenra Prefilled Syringe 30 mg/mL subcutaneous solution: 30 mg, SubCutaneous, Every 56 days, Refills(s) 0 Gamunex-C 10% injectable solution 5 gram: Refills(s) 0 Home Oxygen: 2 L/min, Bedtime, Refill(s) 0 Klor-Con M20 oral tablet, extended release: BID, Refills(s) 0 Mycelex Aleksey 10 mg Lozenge: Refills(s) 0 SUMAtriptan 6 mg/0.5 mL SubQ Cayla: PRN Migraine headache, Refills(s) 0 Tezspire: Refills(s) 0 Vitamin B12: Refills(s) 0 Xopenex 1.25 mg/0.5 mL Concentate: mg mL, NEB, TID, Refills(s) 0 acetaZOLAMIDE 500 mg oral capsule, extended release: 500 mg = 1 cap(s), Oral, Bedtime, Refills(s) 0 amitriptyline 100 mg oral tablet: 100 mg = 1 tab(s), Oral, Once a day (at bedtime), Refills(s) 0 amlodipine: Refills(s) 0 atorvastatin 40 mg Tab: 40 mg = 1 tab(s), Oral, Daily, Refills(s) 0 biotin: Refills(s) 0 celecoxib 200 mg Cap: Refills(s) 0 clonidine: Refills(s) 0 duloxetine 20 mg oral delayed release capsule: Refills(s) 0 fluticasone Nasal 0.05 mg/inh Coy: Refill(s) 0 ketorolac 10 mg Tab: Refills(s) 0 levalbuterol: 0.63 mg, NEB, TID, PRN Shortness of breath or wheezing, Refills(s) 0 losartan 100 mg Tab: Refills(s) 0 magnesium citrate: Refill(s) 0 meclizine 25 mg Tab: Refills(s) 0 methenamine hippurate 1 g oral tablet: Refills(s) 0 metoprolol: Refills(s) 0 mometasone 50 mcg/inh inhalation aerosol: Refills(s) 0 nystatin 100,000 units/mL Oral Susp: 100,000 unit(s) = 1 mL, Oral, q6hr, For an give as one milliliter to each side of mouth, Refills(s) 0 omeprazole 40 mg Cap-DR: BID, Refills(s) 0 ondansetron 4 mg Tab: 4 mg = 1 tab(s), Oral, q8hr, PRN Nausea/Vomiting, Refills(s) 0 rizatriptan 10 mg Tab: PRN Migraine headache, Refills(s) 0 spironolactone 50 mg Tab: 50 mg = 1 tab(s), Oral, Daily, Refills(s) 0 tamsulosin: Refills(s) 0 topiramate 50 mg Tab: Take 150mg at breakfast Take 200 Mg at 5pm and 250 mg at HS, Refills(s) 0 venlafaxine 150 mg Cap-ER: 150 mg = 1 cap(s), Oral, BID, 75 mg with dinner, Refills(s) 0 verapamil 120 mg oral tablet: Oral, Kalyan (more content not included)...[facility] CenterComment on above:Result Comment: Electronically Signed By: Barbara Duron PA-C\.br\Date and Time Signed: 12/04/23 11:07 [id number] History of Present illness Narrative* Jodie Matthews MD - 10/12/2023 3:30 PM EDTAssociated Order(s): Head/Face/Jaw Botulinum Injection Post-Procedure Diagnose(s): Intractable chronic migraine without aura and with status migrainosus Patient ID: Velia Bagley is a 63 y.o. male. Head/Face/Jaw Botulinum Injection Date/Time: 10/12/2023 4:52 PM Performed by: Jodie Matthews MD Authorized by: Jodie Matthews MD Consent: Consent obtained: Verbal Consent given by: Patient Procedure details: EMG used? No Electrical stimulation used? No Diluted by: Preservative free saline Toxin (Brand): OnaBoNT-A (Botox) Total units available: 200 Ad hoc region [...] 24 hours. If there is discomfort, ice forthe first 24 hour,s heat after that. Headaches may worsen, or you may experience neck stiffness. Ifthis occurs use your usual headache medication or a mild anti inflammatory such as advil or aleve. Please call if you have difficulty swallowing. You received Toradol today for your severe headache. We are going to continue with 5 day of pills starting tomorrow to break your headache cycle. Take 1 pill with breakfast lunch dinner and bedtime for 5 days. Take with food. Try not to take your triptan or antiinflammatory during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 1.25 mg/3 mL nebulizer solution, Take 1 ampule by nebulization every 4 hoursif needed for wheezing., Disp: , Rfl: levalbuterol (Xopenex) 45 mcg/actuation inhaler, Inhale 2 puffs every 4 hours if needed for wheezing or shortness of breath., Disp: 15 g, Rfl: 11 losartan (Cozaar) 25 mg tablet, TAKE 2 TABLETS BY MOUTH EVERY DAY, Disp: 180 tablet, Rfl: 2 methenamine hippurate (Hiprex) 1 gram tablet, Take 1 tablet (1 g) by mouth 2 times a day., Disp: , Rfl: MOMETASONE-FORMOTEROL INHL, Inhale., Disp: , Rfl: nebulizer accessories kit, 1 kit see administration instructions., Disp: 1 kit, Rfl: 3 nystatin (Mycostatin) 100,000 unit/mL suspension, SWISH AND SWALLOW 5ML BY MOUTH 4 TIMES A DAY NEEDED, Disp: , Rfl: omeprazole (PriLOSEC) [address] capsule, Take 2 capsules (80 mg) by mouth twice a day., Disp: , Rfl: ondansetron (Zofran) 4 mg tablet, Take 2 tablets (8 mg) by mouth every 8 hours if needed for nauseaor vomiting., Disp: , Rfl: oxygen (O2) gas therapy, 2 L/min., Disp: , Rfl: potassium chloride CR 20 mEq ER tablet, Take 1 tablet (20 mEq) by mouth 2 times a day., Disp: , Rfl: predniSONE (Deltasone) 10 mg tablet, 4 TABLETS ONCE A DAY FOR 3 DAYS, 3 TABS DAILY X3 DAYS, 2 TABS DAILY X3 DAYS, 1 TAB DAILY X3 DAYS, Disp: , Rfl: pregabalin (Lyrica) 100 mg capsule, Take 1 capsule (100 mg) by mouth twice a day., Disp: , Rfl: rizatriptan (Maxalt) 10 mg tablet, Take 1 tablet (10 mg) by mouth if needed (onset of headache. mayrepeat 1 tab q2hrs PRN. max 3tabs per 24hrs.)., Disp: , Rfl: spironolactone (Aldactone) 50 mg tablet, Take 1 tablet (50 mg) by mouth once daily., Disp: , Rfl: SUMAtriptan (Imitrex) 6 mg/0.5 mL injection, INJECT 1 DOSE AT ONSET OF HEADACHE. MAY REPEAT IN 2 HOURS. MAXIMUM DOSE: 2 IN 24 HOURS., Disp: 0.5 mL, Rfl: 6 tezepelumab-ekko (Tezspire) SubQ Pen Injector, Inject 1.9 mL (210 mg) under the skin every 28 (twenty-eight) days for 6 doses., Disp: 1.91 mL, Rfl: 5 tiZANidine (Zanaflex) 4 mg tablet, Take 1 tablet (4 mg) by mouth every 6 hours if needed for musclespasms., Disp: , Rfl: topiramate (Topamax) 100 mg tablet, Take 1 tablet (100 mg) by mouth once daily. With 50mg, Disp: , Rfl: topiramate (Topamax) 200 mg tablet, Take by mouth 2 times a day. 1 tab at dinner and 1 tab at bedtime, Disp: , Rfl: topiramate (Topamax) 50 mg tablet, TAKE 1 TABLET BY MOUTH IN THE MORNING, 1 IN THE EVENING AND 1 ATBEDTIME WITH 200MG TABLET, Disp: , Rfl: venlafaxine 75 mg 24 hr tablet, Take 1 tablet (75 mg) by mouth once daily at bedtime., Disp: , Rfl: venlafaxine XR (Effexor XR) 150 mg 24 hr capsule, Take 1 capsule (150 mg) by mouth once daily., Disp: , Rfl: verapamil (Calan) 120 mg tablet, TAKE 1 TABLET BY MOUTH EVERYDAY AT BEDTIME, Disp: 90 tablet, Rfl: 2 Review of Systems Constitutional: Negative for fatigue, fever and unexpected weight change. HENT: Negative for congestion, facial swelling, nosebleeds, postnasal drip, rhinorrhea, sinus pressure and sinus pain. Eyes: Negative for discharge, redness and visual disturbance. Respiratory: Positive for shortness of breath and wheezing. Negative for apnea, cough, choking and stridor. Cardiovascular: Negative for chest pain, palpitations and leg swelling. Gastrointestinal: Negative for abdominal distention, abdominal pain, constipation and nausea. Endocrine: Negative for cold intolerance and heat intolerance. Genitourinary: Negative for difficulty urinating, dysuria, frequency and hematuria. Musculoskeletal: Negative for arthralgias, gait problem and joint swelling. Allergic/Immunologic: Negative for environmental allergies, food allergies and immunocompromised state. Neurological: Positive for dizziness and headaches. Negative for tremors, syncope, speech difficulty, weakness, light-headedness and numbness. Hematological: Negative for adenopathy. Does not bruise/bleed easily. Psychiatric/Behavioral: Negative for agitation, behavioral problems and sleep disturbance. The patient is not nervous/anxious. Vitals: 06/22/23 1030 BP: 104/66 Pulse: 83 Resp: 18 Temp: 36 C (96.8 F) SpO2: 94% Physical Exam Vitals reviewed. Constitutional: Appearance: Normal appearance. HENT: Head: Normocephalic and atraumatic. Eyes: Extraocular Movements: Extraocular movements intact. Cardiovascular: Rate and Rhythm: Normal rate and regular rhythm. Heart sounds: No murmur heard. No friction rub. No gallop. Pulmonary: Effort: Pulmonary effort is normal. No respiratory distress. Breath sounds: Normal breath sounds. No stridor. No wheezing, rhonchi or rales. Chest: Chest wall: No tenderness. Abdominal: General: Abdomen is flat. There is no distension. Palpations: Abdomen is soft. There is no mass. Tenderness: There is no abdominal tenderness. Musculoskeletal: General: Normal range of motion. Cervical back: Normal range of motion. Right lower leg: No edema. Left lower leg: No edema. Skin: General: Skin is warm and dry. Neurological: Mental Status: He is alert and oriented to person, place, and time. Psychiatric: Mood and Affect: Mood normal. Behavior: Behavior normal. [facility] Work Phone: 1([phone]) 181-250102-19-2024 Instructions* Patient Instructions* Rich Magana MD MPH - 06/22/2023 10:00 AM EST I would continue present medications and have renewed the levalbuterol and Breztri documented in this [facility]Tri[facility] Work Phone: [phone] History of Present illness Narrative* Jodie Matthews MD - 04/15/2023 11:20 AM ESTAssociated Order(s): Head/Face/Jaw Botulinum Injection Post-Procedure Diagnose(s): Chronic migraine without aura, with intractable migraine, so stated, with status migrainosus Patient ID: Velia Bagley is a 63 y.o. male. Head/Face/Jaw Botulinum Injection Date/Time: 04/15/2023 2:19 PM Performed by: Jodie Matthews MD Authorized by: Jodie Matthews MD Consent: Consent obtained: Verbal Consent given by: Patient Procedure details: EMG used? No Electrical stimulation used? No Diluted by: Preservative free saline Toxin (Brand): OnaBoNT-A (Botox) Total units available: 200 Ad hoc region [...] 24 hours. If there is discomfort, ice forthe first 24 hour,s heat after that. Headaches may worsen, or you may experience neck stiffness. Ifthis occurs use your usual headache medication or a mild anti inflammatory such as advil or aleve. Please call if you have difficulty swallowing. You received Toradol today for your severe headache. We are going to continue with 5 day of pills starting tomorrow to break your headache cycle. Take 1 pill with breakfast lunch dinner and bedtime for 5 days. Take with food. Try not to take your triptan or antiinflammatory during this time. If you have any nausea or diarrhea with the medicinestop and call on the next business day. documented in this [facility] Work Phone: [phone] Instructions* Patient Instructions* Angela Hebert MA - 04/15/2023 11:20 AM EST Please do not rub areas for 24 hours. No pressure above eyebrows for 24 hours. Watch out for helmets, headlamps, headbands, goggles, or massage for 24 hours. If there is discomfort, ice for the first24 hour,s heat after that. Headaches may worsen, or you may experience neck stiffness. If this occurs use your usual headache medication or a mild anti inflammatory such as advil or aleve. Please call if you have difficulty swallowing. 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 He has not had recurrent infections [facility] Work Phone: [phone] 230-947212-10-2023 Miscellaneous Notes* Assessment & Plan Note - Courtney Brown MD - 04/12/2023 6:42 PM ESTAssociated Problem(s): Anti- pneumococcal polysaccharide antibody deficiency (CMS/HCC) He will continue his current treatment. He has not had recurrent infections * Assessment & Plan Note - Ingrid Parker - 04/08/2023 11:23 AM ESTAssociated Problem(s): Fatigue I ordered basic lab evaluation for fatigue. I explained to patient that I do not typically treat fatigue and he should follow up for evaluationwith his primary care physician. I am not sure why she referred him to his outside specialist for treatment of fatigue. It is acute and has been about 2-3 weeks. * Assessment & Plan Note - Ingrid Parker - 04/08/2023 11:22 AM ESTAssociated Problem(s): Asthma with chronic obstructive pulmonary disease (COPD) ACT is 6. This is his baseline. He continues to have chronic symptoms, but he is not currently having an exacerbation documented in this [facility] Work Phone: [phone] 476-376712-06-2023 Evaluation + Plan noteExtracted from: Title:Pain Managment Follow up Author:Barbara Easley Date:04/08/23 Impression and Plan Patient is a 63-year-old male with a past medical history seen for lumbosacral stenosis and lumbosacral neuritis. Patient also has issues with migraines. 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 A bunch of blood work was ordered. He is hoping to have this when he has his gammaglobulin infusion. He states that he is hopeful to get his energy levels back up. He underwent recent transforaminal epidural steroid injection with improvement. At this time, he just is here today to get refills of his medications. He uses Lyrica 100 mg twice daily, Flexeril 10 mg at bedtime and Wentworth 5/325 1 p.o. 3 times daily as needed pain. He states that he tries to use the Wentworth as sparingly as possible. He is requesting refills today. OARRS was reviewed and is appropriate. Narcan was offered and declined. Most recent UDS was also reviewed and is appropriate. We will plan to repeat 1 at his next visit. At this time, he wonders about possibly switching his Wentworth back to Percocet. We had a long discussion about this. I would not recommend increasing his opiate burden. We discussed trying to better maximize the Lyrica. I recommended going to 100 mg 3 times daily. Potential side effects discussed. Patient is agreeable. At this time, he will follow-up in 4 to 6 weeks for reevaluation. Call clinic sooner if necessary. VERONICA score: 53% Future Appointments Appointment Date:05/15/2023 10:45:00 AM Scheduled Provider:Barbara Duron PA-C [facility] Type:Pain Management - Follow Up (FT) Appointment Date:05/19/2023 02:30:00 PM Scheduled Provider:JESSICA PAYTON PA-C Location:[facility] Appointment Type:URO Office Visit [facility]12-06-2023 Evaluation + Plan note* Assessment & Plan Note - Ingrid Parker - 04/08/2023 11:23 AM ESTAssociated Problem(s): Fatigue I ordered basic lab evaluation for fatigue. I explained to patient that I do not typically treat fatigue and he should follow up for evaluationwith his primary care physician. I am not sure why she referred him to his outside specialist for treatment of fatigue. It is acute and has been about 2-3 weeks. [facility] Work Phone: [phone] Evaluation + Plan note* Assessment & Plan Note - Ingrid Parker - 04/08/2023 11:22 AM ESTAssociated Problem(s): Asthma with chronic obstructive pulmonary disease (COPD) ACT is 6. This is his baseline. He continues to have chronic symptoms, but he is not currently having an exacerbation [facility] Work Phone: [phone] History of Present illness Narrative* Courtney Brown MD - 04/08/2023 10:45 AM EST Subjective Velia Bagley is a 63 y.o. male who presents for Follow-up and Fatigue. Chief Complaint Patient presents with Follow-up Fatigue Since last visit, 02/09/2023, patient comes in with complaint of bone fatigue and myalgia (normalamount) for about a month and cannot do anything. He called Dr. Rayo's office who referred him to one of his specialists. He tested negative for COVID. He is sleeping well and has to take a 2 hournap in the daytime. He endorses lightheadedness and super migraine recurrence. He receives vicodin 3 a day, rizatriptan PRN and sumatriptan injections. For rapid onset of migraines, he will take rizatriptan. He admits he has been doing this since May. He was supposed to have his [employer] last but did not because he was too fatigued but is scheduled for one tomorrow. Patient reports being on vitamin B12 injections. Patient states he is not fixing much dinner because of his son's changing work schedule. He has haddecreased appetite and has had some unintentional weight loss and postprandial emesis 2-3x a week for about a month. He has his normal amount of heartburn. Review of Systems Constitutional: Positive for activity change, appetite change, fatigue and unexpected weight change(unintentional weight loss). Musculoskeletal: Positive for myalgias. Neurological: Positive for dizziness, light-headedness and headaches (super migraines). Objective Pulse 91 Ht 1.753 m (5' 9 ) Wt 79.8 kg (176 lb) BMI 25.99 kg/m Physical Exam Current Outpatient Medications Medication Sig Dispense Refill acetaZOLAMIDE (Diamox) 500 mg 12 hr capsule TAKE 1 CAPSULE BY MOUTH AT NIGHT DURING A STORMY WEEK 90 capsule 0 albuterol 90 mcg/actuation inhaler Inhale 2 puffs every 4 hours if needed for wheezing. amitriptyline (Elavil) 100 mg tablet TAKE 1 TABLET BY MOUTH EVERYDAY AT BEDTIME 30 tablet 2 biotin 1,000 mcg tablet,chewable Chew 1 tablet once daily. inftnqsfno-xkduxlip-jwgpgbhfod (Breztri Aerosphere) 160-9-4.8 mcg/actuation HFA aerosol inhaler Refill(s) 0 celecoxib (CeleBREX) 200 mg capsule Take 1 capsule (200 mg) by mouth 4 times a day. cloNIDine (Catapres) 0.1 mg tablet Take 1 tablet (0.1 mg) by mouth 2 times a day. cyanocobalamin (Vitamin B-12) 1,000 mcg tablet Take 1 tablet (1,000 mcg) by mouth once daily. As directed cyclobenzaprine (Flexeril) 10 mg tablet Take by mouth. DULoxetine (Cymbalta) [address] capsule Take 1 capsule (60 mg) by mouth once daily. erenumab (Aimovig Autoinjector) 140 mg/mL injection Inject 1 mL (140 mg) under the skin every 30 (thirty) days. As directed Fasenra Pen 30 mg/mL injection fluticasone (Flonase) 50 mcg/actuation nasal spray Administer 2 sprays into each nostril once daily. folic acid (Folvite) 1 mg tablet Take 1 tablet (1 mg) by mouth once daily. Gamunex-C 40 gram/400 mL (10 %) solution HYDROcodone-acetaminophen (Wentworth) 5-325 mg tablet Take 1 tablet by mouth every 6 hours if needed (pain). ketorolac (Toradol) 10 mg tablet Take 1 tablet (10 mg) by mouth every 6 hours. With food 20 tablet 0 levalbuterol (Xopenex) 1.25 mg/3 mL nebulizer solution Take 1 ampule by nebulization every 4 hours if needed for wheezing. levalbuterol (Xopenex) 45 mcg/actuation inhaler Inhale 2 puffs every 4 hours if needed for wheezingor shortness of breath. losartan (Cozaar) 25 mg tablet Take 2 tablets (50 mg) by mouth once daily. methenamine hippurate (Hiprex) 1 gram tablet Take 1 tablet (1 g) by mouth 2 times a day. MOMETASONE-FORMOTEROL INHL Inhale. nebulizer accessories kit 1 kit see administration instructions. 1 kit 3 nystatin (Mycostatin) 100,000 unit/mL suspension SWISH AND SWALLOW 5ML BY MOUTH 4 TIMES A DAY NEEDED omeprazole (PriLOSEC) [address] capsule Take 2 capsules (80 mg) by mouth twice a day. ondansetron (Zofran) 4 mg tablet Take 2 tablets (8 mg) by mouth every 8 hours if needed for nausea or vomiting. oxygen (O2) gas therapy 2 L/min. potassium chloride CR 20 mEq ER tablet Take 1 tablet (20 mEq) by mouth 2 times a day. predniSONE (Deltasone) 10 mg tablet 4 TABLETS ONCE A DAY FOR 3 DAYS, 3 TABS DAILY X3 DAYS, 2 TABS DAILY X3 DAYS, 1 TAB DAILY X3 DAYS pregabalin (Lyrica) 100 mg capsule Take 1 capsule (100 mg) by mouth twice a day. rizatriptan (Maxalt) 10 mg tablet Take 1 tablet (10 mg) by mouth if needed (onset of headache. may repeat 1 tab q2hrs PRN. max 3tabs per 24hrs.). spironolactone (Aldactone) 50 mg tablet Take 1 tablet (50 mg) by mouth once daily. SUMAtriptan (Imitrex) 6 mg/0.5 mL injection Inject 0.5 mL (6 mg) under the skin if needed (headache. may repear in 2hrs. max dose: 2 in 24hrs). tiZANidine (Zanaflex) 4 mg tablet Take 1 tablet (4 mg) by mouth every 6 hours if needed for muscle spasms. topiramate (Topamax) 100 mg tablet Take 1 tablet (100 mg) by mouth once daily. With 50mg topiramate (Topamax) 200 mg tablet Take by mouth 2 times a day. 1 tab at dinner and 1 tab at bedtime topiramate (Topamax) 50 mg tablet TAKE 1 TABLET BY MOUTH IN THE MORNING, 1 IN THE EVENING AND 1 AT BEDTIME WITH 200MG TABLET venlafaxine 75 mg 24 hr tablet Take 1 tablet (75 mg) by mouth once daily at bedtime. venlafaxine XR (Effexor XR) 150 mg 24 hr capsule Take 1 capsule (150 mg) by mouth once daily. verapamil (Calan) 120 mg tablet Take 1 tablet (120 mg) by mouth once daily at bedtime. amLODIPine (Norvasc) 5 mg tablet Take 1 tablet (5 mg) by mouth once daily. methylPREDNISolone (Medrol Dospak) 4 mg tablets Follow schedule on package instructions 21 tablet 0 No current facility-administered medications for this visit. Orders Placed This Encounter Procedures Respiratory Culture/Smear Standing Status: Standing Number of Occurrences: 4 Standing Expiration Date: 04/15/2023 Order Specific Question: Release result to MyChart Answer: Immediate [1] CBC and Auto Differential Standing Status: Future Standing Expiration Date: 04/08/2024 Order Specific Question: Release result to MyChart Answer: Immediate Comprehensive Metabolic Panel Standing Status: Future Standing Expiration Date: 04/08/2024 Order Specific Question: Release result to MyChart Answer: Immediate [1] IgG Standing Status: Future Standing Expiration Date: 04/08/2024 Order Specific Question: Release result to MyChart Answer: Immediate [1] TSH with reflex to Free T4 if abnormal Standing Status: Future Standing Expiration Date: 04/08/2024 Order Specific Question: Release result to MyChart Answer: Immediate Cytomegalovirus antibody, IgM Standing Status: Future Standing Expiration Date: 04/08/2024 Order Specific Question: Release result to MyChart Answer: Immediate [1] Zuleyma-Ho Virus Antibody Panel Standing Status: Future Standing Expiration Date: 04/08/2024 Order Specific Question: Release result to MyChart Answer: Immediate [1] Urinalysis with Reflex Microscopic Standing Status: Future Standing Expiration Date: 04/08/2024 Order Specific Question: Release result to MyChart Answer: Immediate [1] Mycoplasma Pneumoniae Antibody, IgM Standing Status: Future Standing Expiration Date: 04/08/2024 Order Specific Question: Release result to MyChart Answer: Immediate [1] Chlamydia Antibodies IgM Standing Status: Future Standing Expiration Date: 04/08/2024 Order Specific Question: Release result to MyChart Answer: Immediate [1] Vitamin D 25-Hydroxy,Total (for eval of Vitamin D levels) Standing Status: Future Standing Expiration Date: 04/08/2024 Order Specific Question: Release result to MyChart Answer: Immediate Vitamin B12 Standing Status: Future Standing Expiration Date: 04/08/2024 Order Specific Question: Release result to MyChart Answer: Immediate [1] Zinc, Serum or Plasma Standing Status: Future Standing Expiration Date: 04/08/2024 Order Specific Question: Release result to MyChart Answer: Immediate [1] Assessment/Plan Asthma with chronic obstructive pulmonary disease (COPD) ACT is 6. This is his baseline. He continues to have chronic symptoms, but he is not currently having an exacerbation Fatigue I ordered basic lab evaluation for fatigue. I explained to patient that I do not typically treat fatigue and he should follow up for evaluationwith his primary care physician. I am not sure why she referred him to his outside specialist for treatment of fatigue. It is acute and has been about 2-3 weeks. 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 He has not had recurrent infections By signing my name below, I, Donna Zamoraibe, attest that this documentation has been prepared under the direction and in the presence of Courtney Brown MD. All medical record entries made by the Scribe were at my direction and personally dictated by me. I have reviewed the chart and agree that the record accurately reflects my personal performance of the history, physical exam, discussion and plan. documented in this encounterTri[facility] Work Phone: [phone] 781-236412-06-2023 Instructions* Patient Instructions* Courtney Brown MD - 04/08/2023 10:45 AM EST Submit a urine sample to check for a urinary tract infection and blood work to evaluate zinc, potassium, CBC and vitamin D and B12 levels. We will call you with results, recommendations and followup plan. Provide a sputum sample in the containers provided. Do NOT refrigerate and take to the lab at your earliest convenience. Follow up with your PCP for new onset fatigue documented in this encounterTri[facility] Work Phone: [phone] Evaluation note* Encounter Date Diagnosis Assessment Notes Treatment Notes Treatment Clinical Notes Apr, Primary osteoarthritis of both knees (ICD-10 - M17.0) Apr, Other After consent was obtained, the right knee was injected with Zilretta using sterile technique. Patient tolerated the injection well. Follow-up 3 months with [employer] Other 11-21-2023 History of Present illness Narrative* Lauren Galeas RN - 03/24/2023 1:00 PM EST Intractable migraine for over 2 weeks. Home treatments aren't effective to break. Toradol protocol IM and PO today to break cycle documented in this [facility]Tri[facility] Work Phone: [phone]) [phone] Instructions* Patient Instructions* Lauren Galeas RN - 03/24/2023 1:00 PM EST You received Toradol injection in the office today to break a migraine headache cycle. Also called ketorolac . Tomorrow you are to start taking oral Toradol/Ketoralac 4 times daily with food for 5 days.Don't take any other NSAIDs (Aleve, ibuprofen, Motrin, naproxen) during 5 days of Toradol. Avoid all other rescue medications if possible to break any overuse cycle. documented in this encounterTriHealth Work Phone: [phone] 371-472310-19-2023 Evaluation note* Encounter Date Diagnosis Assessment Notes Treatment Notes Treatment Clinical Notes Feb, Primary osteoarthritis of both knees (ICD-10 - M17.0) Feb, Other 1. We had a nanette g discussion with the patient today concerning their right and left knee osteoarthritis. The radiographs do show osteoarthritis of the knees. At this time the patient would like to avoid surgical intervention. We did discuss the risk and benefits of surgical versus nonoperative management. The patient would like to proceed with nonoperative management. We discussed that our options include injections, physical therapy, and the consistent use of anti-inflammatories. All 3 of these options, including their risks and benefits, were discussed at length with the patient. 2. Tylenol: Discussed taking Tylenol (acetaminophen). Recommended adjusting their dosing to 1000mg by mouth up to 3 times a day. 3. NSAIDs: Recommend continuing his Celebrex 4. Physical therapy: Discussed formal physical therapy and home regimen. Patient preferred no formal PT. 5. Injections: Discussed injections as a treatment option. Patient has done a fantastic job with his Aaron injection and then recommend another 1 today. We will [facility] Other 09-28-2023 Evaluation note* Encounter Date Diagnosis Assessment Notes Treatment Notes Treatment Clinical Notes Jan, Hypokalemia (ICD-10 - E87.6) Reviewed most recent labs. Has not had a K checked for some time. Jan, Pernicious anemia (ICD-10 - D51.0) Due for a recheck. Has been consistent w B12 injections. Will monitor levels. Continue healthy diet. [employer] Other 09-26-2023 NoteDiagnoses/Problems Interstitial lung disease (515) (J84.9) 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) Dx 07-29-20 SOB (shortness of breath) on exertion (786.05) (R06.02) Orders CT Chest High Resolution; Status:Hold For - Scheduling; Requested for:[id number]; Perform: [facility]; Order Comments:supine and proneinspiration and expiration; Due:[id number];Ordered; For:COVID-19 long hauler, Interstitial lung disease; Ordered By:Rich Magana; Patient taking Metformin or Derivatives? : No Radiologist to Determine Optimal Study : Y What are the patient's signs and symptoms? : some increased sob Echocardiogram; Status:Hold For - Scheduling; Requested for:[id number]; Perform:[facility] ([place]);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 stable labs stable, iron ok, no need for infusions 08/19/22 he is struggling these last few weeks with worsening depression as this month is2 years since his daughter's . He has less motivation and drive to do things, is more tired and sad he denies shortness of breath, chest pain, black or tarry stool eating and drinking fairly ok. likely more related to depression his son and girlfriend are getting ready to have his first grand-baby in about 2months. They are living with him labs good- hgb 14.9, iron saturation 39.5% and ferritin 110.6 [facility] - Medical History Medical History: Medical History (Last Reviewed 08/19/22 @ 23:53 by Kamlesh Rome PA-C) Anemia Anxiety Asthma Chronic back pain COPD (chronic obstructive pulmonary disease) COVID COVID-19 jacqueline greene CVA (cerebral vascular accident) Depression GERD (gastroesophageal reflux disease) Hypertension Immunocompromised Leukocytosis Migraines On home oxygen therapy Peripheral neuropathy Pernicious anemia Pneumonia - Surgical History Surgical History: Surgical History (Last Reviewed 08/19/22 @ 23:53 by Kamlesh Rome PA-C) H/O knee surgery Onset Date: ~1973 History of back surgery Onset Date: ~2015 L4-5 laminectomy History of right hip replacement Onset Date: ~2019 - Family History Family History: Family History (Last Reviewed 08/19/22 @ 23:53 by Kamlesh Rome PA-C) Other No significant family history - Social History Smoking Status: Never smoker Substance Use Type: None Home Medications & Allergies Allergies avocado Allergy (Verified 08/19/22 13:16) Swelling baclofen Allergy (Verified 08/19/22 13:16) Weakness candesartan Allergy (Verified 08/19/22 13:16) Unknown Reaction cefdinir Allergy (Verified 08/19/22 13:16) Unknown Reaction chocolate flavor Allergy (Verified 08/19/22 13:16) Headache ciprofloxacin [From Cipro] Allergy (Verified 08/19/22 13:16) Rash diazepam [From Valium] Allergy (Verified 08/19/22 13:16) Unknown Reaction diltiazem Allergy (Verified 08/19/22 13:16) Unknown Reaction grass pollen Allergy (Verified 08/19/22 13:16) Unknown Reaction Sulfa (Sulfonamide Antibiotics) Allergy (Verified 08/19/22 13:16) Unknown Reaction indomethacin [From Indocin] Adverse Reaction (Verified 08/19/22 13:16) Hypotension Penicillins Adverse Reaction (Verified 08/19/22 13:16) Rash propranolol [From Inderal LA] Adverse Reaction (Verified 08/19/22 13:16) Hypotension Home Medications alprazolam 0.25 mg tablet 40 mg PO BID PRN Anxiety 07/29/21 [History Confirmed 08/19/22] amitriptyline 75 mg tablet 25 mg PO QHS 07/29/21 [History Confirmed 08/19/22] benralizumab 30 mg/mL subcutaneous syringe (Fasenra) 30 mg subcut DIRECTED 07/29/21 [History Confirmed 08/19/22] budesonide 0.5 mg/2 mL suspension for nebulization 0.5 mg inhalation BID 07/29/21 [History Confirmed 08/19/22] erenumab-aooe 140 mg/mL subcutaneous auto-injector (Aimovig Autoinjector) 140 mgsubcut DIRECTED 07/29/21 [History Confirmed 08/19/22] fluticasone propionate 50 mcg/actuation nasal spray,suspension 50 mcg intranasalDAILY 07/29/21 [History Confirmed 08/19/22] montelukast 10 mg tablet (Singulair) 10 mg PO DAILY 07/29/21 [History Confirmed 08/19/22] omeprazole 20 mg capsule,delayed release 20 mg PO BID 07/29/21 [History Confirmed 08/19/22] potassium chloride 20 mEq tablet,extended release(part/cryst) (Klor-Con M) 20 meq PO QID 07/29/21 [History Confirmed 08/19/22] spironolactone 25 mg tablet 25 mg PO DAILY 07/29/21 [History Confirmed 08/19/22] tamsulosin 0.4 mg capsule 0.8 mg PO QHS 07/29/21 [History Confirmed 08/19/22] topiramate 200 mg tablet 100 mg PO DIRECTED 07/29/21 [History Confirmed 08/19/22] venlafaxine 150 mg capsule,extended release 24 hr 75 mg PO BID 07/29/21 [History Confirmed 08/19/22] verapamil 120 mg tablet 120 mg PO DAILY 07/29/21 [History Confirmed 08/19/22] celecoxib 200 mg capsule 200 mg PO DAILY #1 cap 07/30/21 [Rx Confirmed 08/19/22] albuterol sulfate 90 mcg/actuation aerosol inhaler (ProAir HFA) 2 puff inhalation Q4H PRN breathing 01/02/22 [History Confirmed 08/19/22] atorvastatin 40 mg tablet 40 mg PO DAILY 01/02/22 [History Confirmed 08/19/22] docusate sodium 100 mg capsule 100 mg PO BID PRN Constipation 01/02/22 [History Confirmed 08/19/22] losartan 25 mg tablet 100 mg PO DAILY 01/02/22 [History Confirmed 08/19/22] metoprolol succinate 25 mg tablet,extended release 24 hr (Toprol XL) 25 mg PO DAILY 01/02/22 [History Confirmed 08/19/22] rizatriptan 10 mg tablet 10 mg PO DIRECTED 01/02/22 [History Confirmed 08/19/22] umeclidinium 62.5 mcg/actuation blister powder for inhalation (Incruse Ellipta) 1 inh inhalation DAILY 01/02/22 [History Confirmed 08/19/22] pregabalin 100 mg capsule (Lyrica) 100 mg PO BID 03/18/22 [History Confirmed 08/19/22] folic acid 1 mg tablet 1 mg PO DAILY #30 tabs 07/17/22 [Rx Confirmed 08/19/22] Objective - Height/Weight Height/Weight: Height 5 ft 9 in Weight 87.906 kg - Vital Signs Vital Signs: 08/19/22 13:16 Temperature 97.8 F Pulse Rate [Right Brachial] 78 Respiratory Rate 16 Blood Pressure [Right Arm] 136/92 02 Sat by Pulse Oximetry 98 Oxygen Delivery Method Room Air - Pain Head Pain Intensity: 5 - Distress Screening Distress Screen Results: RN Distress Screening Start: 01/22/22 14:05 Freq: Q30D Status: Active Protocol: Document 03/26/22 11:46 KB (Rec: 03/26/22 11:47 KB [id number]) Distress Screening Distress score of 4 or more discussed Yes with patient? Distress screening follow up: Patient requesting referral to [facility]. Referal order placed . Physical Exam Narrative: GENERAL APPEARANCE: Well developed, well nourished, in no acute distress. SKIN: Inspection of the skin reveals no rashes, ulcerations or petechiae. HEENT: The sclerae were anicteric and conjunctivae were pink and moist. EOMI, PERRLA. The oral mucosa is moist and clear. NECK: Supple and symmetric. There was no thyroid enlargement, and no tenderness,or masses were felt. LUNGS: Normal breath sounds on auscultation without rales, rhonchi, or crackles. CARDIOVASCULAR: S1 and S2, regular rate and rhythm, no murmurs, gallops, rubs. ABDOMEN: Soft, nontender, bowel sounds normal. No hepatosplenomegaly. No mass palpated. MUSCULOSKELETAL: There was no tenderness or effusions noted. Walks with cane EXTREMITIES: No cyanosis, clubbing or edema. NEUROLOGIC: Alert and oriented x 3. Results - Labs Labs: Diagram of Most Recent CBC and CMP 05/08/22 12:49 05/08/22 12:49 Assessment and Plan (1) 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c) Iron deficiency anemia d/t chronic blood loss symptomatic with moderately severs GI intolerance to oral iron supplementation Given IV Venofer Jan 2022 Will offer additional IV Venofer in Mar 2022 as counts did not completely normalize after initial dosing in JanMay 2022 iron studies ok, no need for additional iron August 2022 iron studies remain WNL again. Given his stability, we will plan follow-up in 6 months with repeat labs, sooner as needed Colonoscopy and EGD strongly recommended by Dr. Moran at consult Will refer to gastroenterology per patient's request EGD done May 2022 without evidence of bleeding. Continues to get IVIG infusions about every 4-6wks thru immunology. Depression Worsened August 2022 understandably d/t stressors at home and mourning the loss of his daughter 2 years ago this month. He is on Effexor, but feels like his dose needs increased back to what he was onpreviously as he doesn't feel his symptoms are as controlled as they used to be Encouraged him to contact his pcp, we will reach out and request adjustments to his dosing on his behalf and he knows to follow-up on this - Time with Patient Coordination of Care & Counseling Time: Greater than 50% of time spent with patient was for coordination of care (as documented) and [id number] counseling of patient and/or family. Dictated By: Melissa Wilson APRN DD/ [id number] Signed By: <Electronically signed by LUIS Wilson> 08/20/22 0233 [facility] Work Phone: [phone] 475-898604-11-2023 NoteHNO ID: [id number] Author: Gela Ruffin MD Service: ? Author Type: Physician Type: Progress Notes Filed: 08/13/2022 7:54 AM Note Text: This note is formatted with the Assessment and Plan first and Subjective and Objective sections to follow. Assessment: Dysphonia Plan: The patient was sent for evaluation of his upper airway. 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 On flexible laryngoscopy, he has mild irritation of the vocal folds with increased straining during phonation. We discussed the possibility of dysphonia secondary to underlying neurologic issues vs. Muscle tension dysphonia. We will refer for evaluation with speech therapy. Subjective: Mr. VELIA BAGLEY is a 62 year old male returning for evaluation of a week voice and sleep apnea. Last seen on 01/14/2021. Since last seen, he has had shortness of breath. His aircraft loadmaster superintendent wanted him to be evaluated to make sure he was not having an upper airway cause of his symptoms. He has COPD and is on multiple medications. He has no history of tobacco use. He is on 3 L NC at night. No history of cardiac problems. He has worsened shortness of breath with walking and exercise. He feels that his voice is slightly more raspy and he also does not have the projection that he used to have. ALLERGIES Allergen Reactions Avocado Swelling Baclofen Other: See Comments Dizziness and full body weakness Candasartan [Other] Rash Chocolate Unknown Ciprofloxacin (Bulk) Anaphylaxis Grass Pollen Unknown Indocin [Indomethac* Rash Ivp Dye [Iodine] Anaphylaxis Penicillins Rash Lima Oil Unknown Propranolol Other: See Comments Severe low bp and kidneys shutting down. Sulfa (Sulfonamide * Rash, Itching Valium [Diazepam] Other: See Comments Depression tamsulosin (FLOMAX) 0.4 mg, TAKE 2 CAPSULES BY MOUTH EVERY DAY AT BEDTIME *MUST SCHEDULE FOLLOW UP*, Disp: 60 capsule, Rfl: 1 acetylcysteine (MUCOMYST) 100 mg/mL (10 %) nebulizer solution, Inhale 1 mL as instructed every 12 hours, discard excess in vial after 4 days. (Patient not taking: Reported on 01/14/2021 ), Disp: 60 mL, Rfl: 0 gabapentin (NEURONTIN) 300 mg capsule, Take 1 capsule by mouth every 8 hours., Disp: , Rfl: topiramate (TOPAMAX) 100 mg tablet, Take 1 tablet by mouth twice daily., Disp: , Rfl: SUMAtriptan Succinate (IMITREX STAT) 6 mg/0.5 mL cartridge, Inject 6 mg subcutaneously. One injection at onset of migraine. Repeat 2 hours later as needed., Disp: , Rfl: levalbuterol tartrate HFA 45 mcg/actuation inhaler, Inhale 1-2 Puffs as instructed every 4 hours as needed for Wheezing/Shortness of Breath., Disp: , Rfl: acetaminophen (TYLENOL) 325 mg tablet, Take 650 mg by mouth every 4 hours as needed., Disp: , Rfl: albuterol (PROVENTIL) 2.5 mg/3 mL nebulizer solution, Inhale 2.5 mg as instructed every 6 hours as needed., Disp: , Rfl: verapamil SR (CALAN SR, ISOPTIN SR) 120 mg CR tablet, Take 1 tablet by mouth once daily., Disp: , Rfl: docusate sodium (COLACE) 100 mg capsule, Take 1 capsule by mouth twice daily as needed for Constipation., Disp: , Rfl: 0 aspirin 81 mg chewable tablet, Take 81 mg by mouth twice daily., Disp: , Rfl: omeprazole (PRILOSEC) 20 mg capsule, Take 20 mg by mouth twice daily., Disp: , Rfl: AIMOVIG AUTOINJECTOR 140 mg/mL syringe, Inject 140 mg subcutaneously once every month. Take on the , Disp: , Rfl: venlafaxine ER (EFFEXOR XR) 75 mg 24 hr capsule, Take 75 mg by mouth once daily., Disp: , Rfl: levocetirizine (XYZAL) 5 mg tablet, Take 2.5 mg by mouth daily at bedtime. , Disp: , Rfl: tiotropium (SPIRIVA) 18 mcg inhalation capsule, Inhale 18 mcg as instructed once daily., Disp: , Rfl: levalbuterol (XOPENEX) 1.25 mg/3 mL nebulizer solution, Use 1 Ampule via nebulizer every 4 hours as needed., Disp: , Rfl: calcitonin,salmon,synthetic (CALCITONIN, SALMON, NASAL), Use 1 Inhalation in the nose once daily. (alternating nostrils every other day) , Disp: , Rfl: amitriptyline (ELAVIL) 50 mg tablet, Take 50 mg by mouth daily at bedtime. , Disp: , Rfl: atorvastatin (LIPITOR) 40 mg tablet, Take 40 mg by mouth once daily. , Disp: , Rfl: FASENRA 30 mg/mL injection, Inject 30 mg subcutaneously every 8 weeks. Every 2 months Due september 2020 , Disp: , Rfl: budesonide-formoterol (SYMBICORT) 160-4.5 mcg/actuation inhaler, Inhale 2 Puffs as instructed twice daily. , Disp: , Rfl: rizatriptan (MAXALT) 10 mg tablet, Take 10 mg by mouth as needed for Migraine Headache (see administration instructions) (TWICE DAILY NEEDED). , Disp: , Rfl: fluticasone (FLONASE) 50 mcg/actuation nasal spray, Use 2 Sprays in each nostril once daily., Disp: 1 Bottle, Rfl: 11 montelukast (SINGULAIR) 10 mg tablet, Take 10 mg by mouth daily at bedtime., Disp: , Rfl: ALBUTEROL SULFATE (PROAIR HFA INHALATION), Inhale 2 Puffs as instructed every 4 hours as needed (shortness of b (more content not included)...[facility]04-06-2023 Evaluation + Plan noteExtracted from: Title:Clinical Document Author:Lyndsay BHATTI, Phillip garcia Date:08/07/22 Chief complaint: Low back pa in History of present illness: This is a 62-year-old male here for a chief complaint of bilateral lower back pain. The patient rates the pain as a a 5 out of 10 at baseline but it is a 10 with activity. In particular he reports that he cannot walk more than half mile without pain and can only sleep for 6 hours due to the pain. He has had these issues for almost 10 years. He has had a previous lumbar surgery and has had low back and hip pain ever since. He was seeing a physician in [place] who had done some injections with variable results. He is also being treated with Wentworth and Lyrica which are somewhat helpful. He uses the Lyrica every day. The Wentworth he can use up to 3 times a day but it depends on how he is doing and there are days where he does not use it at all. He has done physical therapy on numerous occasions and does home exercises. He has a remote history of a stroke and has some left-sided weakness in the arm and leg. He also has some pulmonary issues and gets infusions of IVIG. Most recently he saw Dr. Natalio osorio in [place]. She did not think he was a good candidate for surgery but felt he could potentially benefit from sacroiliac injections. He would like to pursue this if it is reasonable. 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 He is also on 400 mg of Celebrex per day. He has had epidurals and facet interventions in the past. The patient denies additional neurologic symptoms or issues with bladder or bowel control. The patient's past medical, surgical, and social history along with medications and allergies were reviewed. Review of systems was done on 10 systems Physical examination: General: Pleasant white male in no acute distress. Patient appears well- nourished. Vital signs stable Head exam: Head is normocephalic and external ears normal Neck exam: Bilateral cervical paraspinal tenderness Cardiovascular exam: No signs of poor perfusion and no peripheral edema Respiratory exam: Breathing is unlabored and there is no wheezing present Abdomen exam: Abdomen soft and nondistended Back exam: Bilateral sacroiliac tenderness below the level of L5. Positive Elizabeth sign, Gaenslen test, and thigh thrust test bilaterally Musculoskeletal exam: Strength in left arm and left leg are 4-5 and strength in the right arm and right leg are 5 out of 5 Neurologic exam: Sensation intact. Positive Rubio sign on the left side Psych exam: Affect is appropriate. Alert and oriented Skin exam: No lesions Assessment: The patient's signs and symptoms are consistent with sacroiliitis, lumbosacral spondylosis, and cervical spondylosis. He has a complex medical history including a previous stroke and pulmonary dysfunction as well. We reviewed the patient's imaging reports as well as a note from Dr. Lance. She felt that he had spondyloarthropathy but no focal lesions that would be amenable to surgical intervention. She felt he could benefit from sacroiliac joint injections. I agree. Romeo disability index score was 28 out of 50 OARRS report was reviewed and was appropriate Narcan offered and declined Plan: I addressed options with him. Since he has had years of conservative management with NSAIDs, membrane stabilizer measures, opiates, and physical therapy and has maintained home exercises over the years but is having bilateral axial lower back pain below the level of L5 without evidence of radiculopathy or stenosis stenosis we will proceed with a 10 of bilateral sacroiliac injections under fluoroscopy at his next visit. With regard to his medications his his regimen is probably reasonable so I will continue it as it is for now. He does not need a Wentworth refill but I will refill the Lyrica. He will continue the Celebrex through his neurologist. We will check a tox screen on him today since he is new although he does appear low risk. We discussed the potential risks and benefits of this plan and the patient was in agreement to proceed. I will see the patient for follow-up 4 weeks after the procedure for repeat evaluation. For repeat evaluation. Future Appointments Appointment Date:10/06/2022 01:15:00 PM Scheduled Provider:Elizabeth CHAUDHRY MD Location:[facility] Appointment Type:URO Office Visit [facility]03-17-2023 Evaluation note* Encounter Date Diagnosis Assessment Notes Treatment Notes Treatment Clinical Notes Jul, Other chronic pain (ICD-10 - G89.29) Jul, Low back pain, unspecified (ICD-10 - M54.50) [facility] Other 03-16-2023 Evaluation note* Encounter Date Diagnosis Assessment Notes Treatment Notes Treatment Clinical Notes Jul, Primary osteoarthritis of both knees (ICD-10 - M17.0) Jul, Other We discussed hi s MRI findings today. I explained to him that it looks like he may have some nerve compression in his lower lumbar spine and upper sacral region that may explain some of his symptoms in his left lower extremity. At this point he is already got an appointment with Dr. Lance tomorrow. Recommended continuing that appointment and seeking treatment. In regards to his bilateral knee pain, we again discussed that he has advanced degenerative osteoarthritis of the right knee and lesser so in the left knee. Since he responded so well to prior injections I did recommend another steroid injection in both knees today. After consent was obtained, the right and left knees were injected with 2cc Kenalog and 8cc bupivicaine using sterile technique. Patient tolerated the injections well. Long-term, I think that he needs to get his spine issues addressed prior to even considering anything from an arthroplasty standpoint for his knees. Given the amount of falls he has had my biggest concern would be falling in the recovery. After the knee replacement surgery. [facility] Other 03-01-2023 NotePROCEDURE: XR WRIST RT MIN 3 V COMPARISON: None. HISTORY: Pain of right wrist FINDINGS: BONES:No acute fracture or dislocation. Minimal degenerative changes with marginal osteophyte formation most significant along the first carpometacarpal joint SOFT TISSUES:Negative. No visible soft tissue swelling. EFFUSION:None visible. OTHER: Negative. IMPRESSION: Mild osteoarthritis Electronically authenticated by: RICH ROONEY Date: 2022-07-02 07:28[facility]02-22-2023 Evaluation note* Encounter Date Diagnosis Assessment Notes Treatment Notes Treatment Clinical Notes Jun, Right wrist pain (ICD-10 - M25.531) [facility] Other 02-22-2023 Evaluation note* Encounter Date Diagnosis Assessment Notes Treatment Notes Treatment Clinical Notes Jun, Pernicious anemia (ICD-10 - D51.0) [facility] Other 02-13-2023 History of Present illness Narrative* Since last visit, 06/16/2022, patient reports he saw Dr. Magana yesterday who told him his lungs were clear. Patient states he developed hand and finger swelling on hand Thursday and was shiny. He called Dr. Rayo who recommended ED visit or observation. He chose not to go to the ED. He feels he used his arms frequently on Thursday moving furniture from one room to another. He was extremely weak likely due to overexertion. * Patient has been ill a couple of times and had a fall after leaving [employer]. His left foot hit a stone and he fell hurting his left hip, left shoulder and left head. He denies any fracture or need for stitches but did have a concussion. He has residual headaches, but did get nausea medication after seeing Dr. Matthews last Thursday. He also had 5 days of Toradol and was told to rest. Patient admits he heard wheezing last night. An RN from [facility] came out to discuss home Fasenra. He agrees to setup home Fasenra after initial injection by the visiting nurse. * Infusions are going well. He notes he takes Tylenol and Benadryl and waits 30 minutes between administering steroid and begin infusion. * Patient states [facility] and discussed his depression and insomnia. He does not get to sleep until 3 am. * Dr. 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 He was started on omeprazole. He notes being told he had a vocal cord nodule that required no Tx.He was referred for ST. He was not referred to GI for reflux TX, but did see Dr. Melissa Wilson, GI,with endoscopy in May 2022. [facility] Work Phone: [phone]) 255-944802-13-2023 History of Present illness Narrative* Since last visit, 06/16/2022, patient reports he saw Dr. Magana yesterday who told him his lungs were clear. Patient states he developed hand and finger swelling on hand Thursday and was shiny. He called Dr. Rayo who recommended ED visit or observation. He chose not to go to the ED. He feels he used his arms frequently on Thursday moving furniture from one room to another. He was extremely weak likely due to overexertion. * Patient has been ill a couple of times and had a fall after leaving [employer]. His left foot hit a stone and he fell hurting his left hip, left shoulder and left head. He denies any fracture or need for stitches but did have a concussion. He has residual headaches, but did get nausea medication after seeing Dr. Matthews last Thursday. He also had 5 days of Toradol and was told to rest. Patient admits he heard wheezing last night. An RN from [facility] came out to discuss home Fasenra. He agrees to setup home Fasenra after initial injection by the visiting nurse. * Infusions are going well. He notes he takes Tylenol and Benadryl and waits 30 minutes between administering steroid and begin infusion. * Patient states he went to [facility] and discussed his depression and insomnia. He does not get to sleep until 3 am. * Dr. 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 He was started on omeprazole. He notes being told he had a vocal cord nodule that required no Tx.He was referred for ST. He was not referred to GI for reflux TX, but did see Dr. Melissa Wilson, GI,with endoscopy in May 2022. [facility] Work Phone: [phone]) 706-427602-13-2023 History of Present illness Narrative* Since last visit, 06/16/2022, patient reports he saw Dr. Magana yesterday who told him his lungs were clear. Patient states he developed hand and finger swelling on his right hand Thursday and was shiny. He called Dr. Rayo who recommended ED visit or observation. He chose not to go to the ED. Hefeels he used his arms frequently on Thursday moving furniture from one room to another. He was extremely weak likely due to overexertion. * Patient has been ill a couple of times and had a fall after leaving [employer]. His left foot hit a stone and he fell hurting his left hip, left shoulder and left head. He denies any fracture or need for stitches but did have a concussion. He has residual headaches, but did get nausea medication after seeing Dr. Matthews last Thursday. He also had 5 days of Toradol and was told to rest. Patient admits he heard wheezing last night. * An RN from [facility] can come out to set up home Fasenra. He agrees to set up home Fasenra after initial injection by the visiting nurse. * Infusions are going well. He notes he takes Tylenol and Benadryl and waits 30 minutes between administering steroid and then begin infusion. * Patient states he went to [facility] and discussed his depression and insomnia. He does not get to sleep until 3 am. * Dr. 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 He was started on omeprazole. He notes being told he had a vocal cord nodule that required no Tx.He was referred for ST. He was not referred to GI for reflux TX, but did see Dr. Melissa Wilson, GI,with endoscopy in May 2022. [facility] [employer] DO Work Phone: [phone]) [phone] Evaluation note* Encounter Date Diagnosis Assessment Notes Treatment Notes Treatment Clinical Notes May, Essential (primary) hypertension (ICD-10 - I10) May, Moderate persistent asthma without complication (ICD-10 - J45.40) Exam reassuring today. No additional steroids or antibiotics are indicated [facility] Other 2023 Evaluation note* Encounter Date Diagnosis Assessment Notes Treatment Notes Treatment Clinical Notes May, Pain in right hip (ICD-10 - M25.551) May, Pain in left hip (ICD-10 - M25.552) May, Other I had a long discussion with the patient regarding his x-ray findings. I explained to him that both of his hip x-rays look really good. I do not see any osteoarthritic changes in the left hip. I think that the right hip is overall in a great position and seems to be functioning quite well for him. These falls he continues to have had been worked up by his neurologist according to him and they have not come up with any solutions. Given the x-ray findings of his back and some of the radicular/sciatica type symptoms he is having in his left lower extremity I think it is pertinent to get an MRI of the lumbar spine with contrast due to his prior surgery. I will review the MRI and if there is something that looks concerning then we may get him over to see our neurosurgery colleagues for an evaluation. [facility] Other 01-16-2023 Hospital Discharge instructions Patient Education 05/19/2022 08:05:48 Testicular Self-Exam Testicular Self-Exam A self-examination of your testicles (testicular self-exam) involves looking at and feeling your testicles for abnormal lumps or swelling. Several things can cause swelling, lumps, or pain in your testicles. Some of these causes are: Injuries. Inflammation. Infection. Buildup of fluids around your testicle (hydrocele). Twisted testicles (testicular torsion). Testicular cancer. Why is it important to do a testicular self-exam? Self-examination of the testicles and the left and right groin areas may be recommended if you are at risk for testicular cancer. Your groin is where your lower abdomen meets your upper thighs. You may be at risk for testicular cancer if you have: An undescended testicle (cryptorchidism). A history of previous testicular cancer. A family history of testicular cancer. How to do a testicular self-exam The testicles are easiest to examine after a warm bath or shower. They are more difficult to examine when you are cold. This is because the muscles attached to the testicles retract and pull them up higher or into the abdomen. A normal testicle is egg-shaped and feels firm. It is smooth and not tender. The spermatic cord canbe felt as a firm, spaghetti-like cord at the back of your testicle. Look and feel for changes Stand and hold your penis away from your body. Look at each testicle to check for lumps or swelling. Roll each testicle between your thumb and forefinger, feeling the entire testicle. Feel for: ?Lumps. ?Swelling. ?Discomfort. Check the groin area between your abdomen and upper thighs on both sides of your body. Look and feel for any swelling or bumps that are tender. These could be enlarged lymph nodes. Contact a health care provider if: You find any bumps or lumps, such as a small, hard, pea-sized lump. You find swelling, pain, or soreness. You see or feel any other changes in your testicles. Summary A self-examination of your testicles (testicular self-exam) involves looking at and feeling your testicles for any changes. Self-examination of the testicles and the left and right groin areas may be recommended if you are at risk for testicular cancer. You should check each of your testicles for lumps, swelling, or discomfort. You should check for swelling or tender bumps in your groin area between your lower abdomen and upper thighs. This information is not intended to replace advice given to you by your health care provider. Make sure you discuss any questions you have with your health care provider. Document Released: 07/27/2001 Document Revised: 08/11/2019 Document Reviewed: 03/16/2017 [employer] Patient Education 2020 [employer]. Follow Up Care 04/14/2022 09:29:34 With:ANGELA BHATTI, Elizabeth R, URL Address: [facility] [address], [place] [address]- When: Unknown [facility] 01-13-2023 Progress note Author Melissa Wilson [facility] May 16, 2022 11:50am Note Date/Time May 16, 2022 1 1:45am [facility] at [address] [address] Hem/Onc Follow Up Note - OP Signed Patient: Velia Bagley MR#: [id number] : 1960 Acct:[id number] Age/Sex: 62 / M Type: REG RCR Copies to: Rachel Rayo MD~ Subjective Date/Time of Service: Date of Service: 05/16/2022 Time of Service: 11:44 Chief Complaint: Patient is here for a 2 month follow up, with labs 05/08/2022 for review. No concerns voiced at this time. HPI: 61-year-old white gentleman seen for evaluation and management of iron deficiency anemia. He had CBC that showed microcytosis and elevated RDW. His ferritin is very low. TIBC is not in the high normal or elevated range. Most likely since there is a component of anemia of chronic disease. He has been taking oral iron supplements associated with upset stomach and constipation thatprohibited him from compliance. He also takes B12. He stated that this has notmade any difference in terms of symptom improvement. He complains of fatigue and occasional exertional dyspnea. He had symptoms of acid reflux. He has no family history of colon cancer. He had EGD and colonoscopy according to him about 5 years ago 03/18/22 felt slightly better after his iron infusions, but not much energy still occasionally has dark stool, not often though brain fog from [place] is working to get colonoscopy and EGD at - is awaiting call back. Will send referral for him today has had a migraine since , is causing him to be nauseated. Is scheduled to get a Toradol shot tomorrow will get drenching night sweats 3-4 nights/week. These started about 2 months ago. Feels like he is losing weight, has lost maybe 5lbs since Jan. He is staying hydrated, is eating 1 decent meal per day and maybe a small snack otherwise labs improved but still with low iron saturation and ferritin. 05/16/22 he continues with balance issues and has had multiple falls since . He is scheduled to see ortho and neurology in the next 2wks he has gained weight and is eating, drinking ok no new complaints otherwise, other symptoms stable labs stable, iron ok, no need for infusions PMFSH - Medical History Medical History: Medical History (Last Reviewed 04/16/22 @ 10:58 by Rosa Gregorio RN) Anemia Anxiety Asthma Chronic back pain COPD (chronic obstructive pulmonary disease) COVID COVID-19 jacqueline greene CVA (cerebral vascular accident) Depression GERD (gastroesophageal reflux disease) Hypertension Immunocompromised Leukocytosis Migraines On home oxygen therapy Peripheral neuropathy Pernicious anemia Pneumonia - Surgical History Surgical History: Surgical History (Last Reviewed 04/16/22 @ 10:58 by Rosa Gregorio RN) H/O knee surgery Onset Date: ~1973 History of back surgery Onset Date: ~2015 L4-5 laminectomy History of right hip replacement Onset Date: ~2019 - Family History Family History: Family History (Last Updated 01/14/22 @ 10:18 by Karol Berman) Other No significant family history - Social History Smoking Status: Never smoker Substance Use Type: None Home Medications & Allergies Allergies avocado Allergy (Verified 05/16/22 11:12) Swelling baclofen Allergy (Verified 05/16/22 11:12) Weakness candesartan Allergy (Verified 05/16/22 11:12) Unknown Reaction cefdinir Allergy (Verified 05/16/22 11:12) Unknown Reaction chocolate flavor Allergy (Verified 05/16/22 11:12) Headache ciprofloxacin [From Cipro] Allergy (Verified 05/16/22 11:12) Rash diazepam [From Valium] Allergy (Verified 05/16/22 11:12) Unknown Reaction diltiazem Allergy (Verified 05/16/22 11:12) Unknown Reaction grass pollen Allergy (Verified 05/16/22 11:12) Unknown Reaction Sulfa (Sulfonamide Antibiotics) Allergy (Verified 05/16/22 11:12) Unknown Reaction indomethacin [From Indocin] Adverse Reaction (Verified 05/16/22 11:12) Hypotension Penicillins Adverse Reaction (Verified 05/16/22 11:12) Rash propranolol [From Inderal LA] Adverse Reaction (Verified 05/16/22 11:12) Hypotension Home Medications alprazolam 0.25 mg tablet 40 mg PO BID PRN Anxiety 07/29/21 [History Confirmed 05/16/22] amitriptyline 75 mg tablet 25 mg PO QHS 07/29/21 [History Confirmed 05/16/22] benralizumab 30 mg/mL subcutaneous syringe (Fasenra) 30 mg subcut DIRECTED 07/29/21 [History Confirmed 05/16/22] budesonide 0.5 mg/2 mL suspension for nebulization 0.5 mg inhalation BID 07/29/21 [History Confirmed 05/16/22] erenumab-aooe 140 mg/mL subcutaneous auto-injector (Aimovig Autoinjector) 140 mgsubcut DIRECTED 07/29/21 [History Confirmed 05/16/22] fluticasone propionate 50 mcg/actuation nasal spray,suspension 50 mcg intranasalDAILY 07/29/21 [History Confirmed 05/16/22] montelukast 10 mg tablet (Singulair) 10 mg PO DAILY 07/29/21 [History Confirmed 05/16/22] omeprazole 20 mg capsule,delayed release 20 mg PO BID 07/29/21 [History Confirmed 05/16/22] potassium chloride 20 mEq tablet,extended release(part/cryst) (Klor-Con M) 20 meq PO QID 07/29/21 [History Confirmed 05/16/22] spironolactone 25 mg tablet 25 mg PO DAILY 07/29/21 [History Confirmed 05/16/22] tamsulosin 0.4 mg capsule 0.8 mg PO QHS 07/29/21 [History Confirmed 05/16/22] topiramate 200 mg tablet 100 mg PO DIRECTED 07/29/21 [History Confirmed 05/16/22] venlafaxine 150 mg capsule,extended release 24 hr 75 mg PO BID 07/29/21 [History Confirmed 05/16/22] verapamil 120 mg tablet 120 mg PO DAILY 07/29/21 [History Confirmed 05/16/22] celecoxib 200 mg capsule 200 mg PO DAILY #1 cap 07/30/21 [Rx Confirmed 05/16/22] albuterol sulfate 90 mcg/actuation aerosol inhaler (ProAir HFA) 2 puff inhalation Q4H PRN breathing 01/02/22 [History Confirmed 05/16/22] atorvastatin 40 mg tablet 40 mg PO DAILY 01/02/22 [History Confirmed 05/16/22] docusate sodium 100 mg capsule 100 mg PO BID PRN Constipation 01/02/22 [History Confirmed 05/16/22] losartan 25 mg tablet 100 mg PO DAILY 01/02/22 [History Confirmed 05/16/22] metoprolol succinate 25 mg tablet,extended release 24 hr (Toprol XL) 25 mg PO DAILY 01/02/22 [History Confirmed 05/16/22] rizatriptan 10 mg tablet 10 mg PO DIRECTED 01/02/22 [History Confirmed 05/16/22] umeclidinium 62.5 mcg/actuation blister powder for inhalation (Incruse Ellipta) 1 inh inhalation DAILY 01/02/22 [History Confirmed 05/16/22] folic acid 1 mg tablet 1 mg PO DAILY #30 tabs 01/14/22 [Rx Confirmed 05/16/22] pregabalin 100 mg capsule (Lyrica) 100 mg PO BID 03/18/22 [History Confirmed 05/16/22] Objective - Height/Weight Height/Weight: Height 5 ft 9 in Weight 90.2 kg - Vital Signs Vital Signs: 05/16/22 11:13 Pulse Rate [Right Brachial] 64 Respiratory Rate 18 Blood Pressure [Right Arm] 154/94 H 02 Sat by Pulse Oximetry 99 Oxygen Delivery Method Room Air - Pain Head Pain Intensity: 5 - Distress Screening Distress Screen Results: RN Distress Screening Start: 01/22/22 14:05 Freq: Q30D Status: Active Protocol: Document 03/26/22 11:46 KB (Rec: 03/26/22 11:47 KB [id number]) Distress Screening Distress score of 4 or more discussed Yes with patient? Distress screening follow up: Patient requesting referral to [facility]. Referal order placed . Physical Exam Narrative: GENERAL APPEARANCE: Well developed, well nourished, in no acute distress. SKIN: Inspection of the skin reveals no rashes, ulcerations or petechiae. HEENT: The sclerae were anicteric and conjunctivae were pink and moist. EOMI, PERRLA. The oral mucosa is moist and clear. NECK: Supple and symmetric. There was no thyroid enlargement, and no tenderness,or masses were felt. LYMPHATIC: No cervical, supraclavicular, axillary or inguinal adenopathy noted on exam LUNGS: Normal breath sounds on auscultation without rales, rhonchi, or crackles. CARDIOVASCULAR: S1 and S2, regular rate and rhythm, no murmurs, gallops, rubs. ABDOMEN: Soft, nontender, bowel sounds normal. No hepatosplenomegaly. No mass palpated. MUSCULOSKELETAL: Gait was normal. There was no tenderness or effusions noted. Muscle strength and tone were normal. EXTREMITIES: No cyanosis, clubbing or edema. NEUROLOGIC: Alert and oriented x 3. Normal affect. Results - Labs Labs: Diagram of Most Recent CBC and CMP 05/08/22 12:49 05/08/22 12:49 Assessment and Plan (1) 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c) Iron deficiency anemia d/t chronic blood loss symptomatic with moderately severs GI intolerance to oral iron supplementation Given IV Venofer Jan 2022 Will offer additional IV Venofer in Mar 2022 as counts did not completely normalize after initial dosing in JanMay 2022 iron studies ok, no need for additional iron Colonoscopy and EGD strongly recommended by Dr. Moran at consult Will refer to gastroenterology per patient's request EGD done May 2022 without evidence of bleeding. Continues to get IVIG infusions about every 4-6wks thru immunology. - Time with Patient Coordination of Care & Counseling Time: Greater than 50% of time spent with patient was for coordination of care (as documented) and [id number] counseling of patient and/or family. Dictated By: Melissa Wilson APRN DD/ [id number] Signed By: <Electronically signed by LUIS Wilson> 05/16/22 [address] [facility] Work Phone: [phone] 470-432001-12-2023 NoteCONSULTATION CONSULTATION DATE: 05/15/2022 HISTORY OF PRESENT ILLNESS: This is a 62-year-old gentleman who returns to the clinic for a three month follow up for his chronic lower back pain and left hip pain. The patient was last seen on 02/18/2022 which, at that time, he was ordered bilateral lower lumbar MBBs and aquatic therapy. In order to move forward with the procedures, physical therapy and aquatic therapy need to be done, but patient is unable to do it at this time; therefore, procedures are on hold. Patient does share that since the , he has had 17 falls and he is being worked up by Dr. Matthews in Neurology for a causative factor. According to the patient, he states that his neurologist thinks that it may be caused by a mixture of his medications and they are re-evaluating that. Current medications include Celebrex 200 mg b.i.d., Effexor, Lyrica 100 mg b.i.d., Topamax, Wentworth 5/325 t.i.d., B12 shots, iron infusions and gamma globulin infusions. Patient does have a pending appointment with Dr. Chaudhry in Urology for low T. Patient states, overall, his lower back pain is manageable. He rates is as 4/10. His other generalized pain he rates 7/10, which includes headaches and joint pain. Activities such as pushing, pulling, sitting, lifting and any physical activity aggravate his pain. Lying down and the use of heat decreases his pain. Patient has had bilateral knee injections in the past. Last ones were done by Dr. Tiwari on 04/10/2022. Patient's REVIEW OF SYSTEMS / PAST MEDICAL HISTORY / ALLERGIES and IMAGES have been reviewed and noted in the chart. PHYSICAL EXAM: VITAL SIGNS: Blood pressure is 155/92. Heart rate is 68. He is 5'9 and weighs 88.5 kg. GENERAL IMPRESSION: Pleasant, appropriate, no acute distress. FOCUSED EXAM - BACK: Range of motion is functional in lateral rotation and flexion/extension. Minimal spinal axial pain upon deep compression of the lower lumbar facets. Paravertebral muscles are non-spasmodic. Eunice's point non-tender with negative FABERs and compression test. MUSCULOSKELETAL: Motor is intact, 4/5 bilaterally. Patient walks steadily and unassisted. Patient has bilateral point tenderness to the anterior medial aspect of his knees upon deep compression. Minimal crepitus palpated. NEUROLOGICALLY: Diffuse polyneuropathy to upper and lower extremities. DIAGNOSIS: Chronic lower back pain, lumbar degenerative disc disease, left hip pain and falls. PLAN: Patient did inquire about starting Soma as his muscle relaxant. I do not agree that would be the right medication for him. Therefore, he will be started on Flexeril 10 mg q.h.s. He will get a refill of Wentworth 5/325 t.i.d. and Lyrica 100 mg b.i.d. At this time, all procedures are on hold until his neurological work is completed by Neurology. U-Tox will be done in the clinic today. We will see him in three months' time to maintain his medications, unless otherwise indicated.The [id number] History of Present illness Narrative* Botox every 90 days. * last 04-16-2022 * has had a couple of falls in March and April 04 . Feels this is due to dizziness and leg weakness. * Has been in intractable migraine cycle for past several days and would like Toradol protocol to break today. * Treating with Sumatriptan injection and follows with Rizatriptan oral if needed. Sometimes adds Oxygen * Notes that Sumatriptan injections have been difficult for him to administer properly lately . Son can inject but is not always available. Most effective treatment for him. Has spoken with pharmacist and no other devices available. He can go to pharmacy and they will administer as well. Does not have any neighbors at home during the day that he can ask to assist. * Receives gammunex with home infusion every 5 weeks. Next week will start back on q 4 week cycles. * Migraine occurs right frontal. Lightening bolt pain, knife through eye at times, right eye irritation * Associated nausea, light and noise sensitivity, rare vomiting, poor appetite. * Triggers are certain smells, temp changes. bright lights, loud noises, weather change. Stress, certain smells. * Experiencing 13-15 migraines days per month. Decreased from 22 per month before Botox and Aimovig. * Continues Aimovig monthly on * Pain management for back pain, neck pain and joint pain. Vicodin PRN. Dr Jiménez Wants to do a nerve ablation for pain in back. But ortho disallowed him from the therapy that is needed to get the injections approved. Velia is not excited about this * Sees a shipping & receiving lead, Dr Muhammad, [facility] for help with anemia. Iron infusions x 3 . Has seen a laboratory response. * Had gammunex and had best response ever. * Patient had 15 headache days a month or more, 8 meeting migraine criteria. They had tried and failed 3 preventative and 3 abortives. Presently their headaches are well controlled because of Botox Therapy. It has reduced the headaches by 50%. [id number] [address] DO Work Phone: 1([phone]) [phone] History of Present illness Narrative* Botox every 90 days. * last 04-16-2022 * has had a couple of falls in March and April 04 . Feels this is due to dizziness and leg weakness. * Has been in intractable migraine cycle for past several days and would like Toradol protocol to break today. * Treating with Sumatriptan injection and follows with Rizatriptan oral if needed. Sometimes adds Oxygen * Notes that Sumatriptan injections have been difficult for him to administer properly lately . Son can inject but is not always available. Most effective treatment for him. Has spoken with pharmacist and no other devices available. He can go to pharmacy and they will administer as well. Does not have any neighbors at home during the day that he can ask to assist. * Receives gammunex with home infusion every 5 weeks. Next week will start back on q 4 week cycles. * Migraine occurs right frontal. Lightening bolt pain, knife through eye at times, right eye irritation * Associated nausea, light and noise sensitivity, rare vomiting, poor appetite. * Triggers are certain smells, temp changes. bright lights, loud noises, weather change. Stress, certain smells. * Experiencing 13-15 migraines days per month. Decreased from 22 per month before Botox and Aimovig. * Continues Aimovig monthly on * Pain management for back pain, neck pain and joint pain. Vicodin PRN. Dr Jiménez Wants to do a nerve ablation for pain in back. But ortho disallowed him from the therapy that is needed to get the injections approved. Velia is not excited about this * Sees a shipping & receiving lead, Dr Muhammad [facility] for help with anemia. Iron infusions x 3 . Has seen a laboratory response. * Had gammunex and had best response ever. * Patient had 15 headache days a month or more, 8 meeting migraine criteria. They had tried and failed 3 preventative and 3 abortives. Presently their headaches are well controlled because of Botox Therapy. It has reduced the headaches by 50%. 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 : No Radiologist to Determine Optimal Study : Y What are the patient's signs and symptoms? : ground glass changes Patient Discussion/Summary I am going to obtain an HRCT scan of the chest for follow-up of the previous groundglass changes and other scarred areas likely related to his COVID infection. He will continue his present medications. Provider Impressions The patient's hyperreactive airways seems under decent control at the present time. He clearly is doing much better than a year ago when he was on high-dose corticosteroids. Over this time he has been getting Fasenra as well as IVIG. He continues on his controller medications in form of Trelegy. Hehas not been using the budesonide nebulization for several months. He had a recent syncopal episode and is seeing his regular physician for that. He required around 10 stitches around the right eye. His lungs really are clear on examination. Chief Complaint VELIA BAGLEY is here for a follow-up visit. History of Present Illness The patient is a 62-year-old with multiple comorbidities who had COVID pneumonia about a year ago. His recent CT scan showed stability with some faint groundglass changes and parenchymal scarring localized. There was no diffuse pulmonary fibrosis. He is on nebulized budesonide and he appears so farto be tolerating the tapering of the prednisone. He continues on Fasenra along with Trelegy inhaler. His lungs are clear to auscultation. He continues on the oxygen at night and has not been wearing of late because his daughter's cats 8 through the tubing. Unfortunately he will not get through the cats. When seen on September 16, 2021 the patient was hospitalized for bradycardia no specific cardiac issue was found. He continued on the Fasenra and ran out of his Trelegy over the last several weeks. He alsoran out of his budesonide nebulization twice a day. He has not required any rescue inhalers of lateand he has no coughing or congestion. He has lost a significant amount of weight and currently is off the prednisone. He has been off prednisone in years. He continued to deal with behavioral health issues and arrangements have been made for him to see different providers. He continued to have difficulties after his daughter's . He also was going to see sleep medicine for the potential pacemaker insertion. He was going to continue his nebulized desonide and to be maintained on Xopenex as needed and Trelegy. I wanted to avoid oral corticosteroids. In addition he continues on IVIG therapy and Dr. Brown was considering using Dupixent, nucala or Tezspire . He has no other pulse oximetry from December 05, 2021 follow-up adequate saturation was achieved at 2 L/min. When seen on December 16, 2021 has not required any prednisone and he continues on Trelegy. He also was on Fasenra and was using his rescue inhaler perhaps once or twice a day. He has no coughing or congestion. He has recovered from a viral illness and was on IVIG. He seemed to be doing well at that point in time and his last CBC from December 06, 2021 revealed no eosinophils. He was not having much breakthrough with respect to his hyperreactive airways. The patient reports all last week he has had increasing coughing. He had temperatures up to 102 degrees. His fever is down to present time. His COVID testing was negative. The coughing continues. He had some wheezing at night. He also has been noted to have an iron deficiency anemia and is being evaluated for that. He is going to have EGD and colonoscopy. He has been receiving iron therapy. He continues on the Fasenra and IVIG replacement. He is felt to have an asthma flare with a negative x-ray and was placed on some prednisone. Several weeks ago he had increasing congestion and sputum cultures grew out staph aureus and Strep Galactiae and apparently was placed on Levaquin per Dr. Brown. The patient saw Dr. Brown yesterday and continues on his Fasenra administration. He receives his immunoglobulin replacement Review of Systems Constitutional: no chills, no fever, no night sweats and as noted in HPI. Eyes: no blurred vision and no eyesight problems. ENT: no hearing loss, no nasal congestion, no nasal discharge, no hoarseness and no sore throat. Cardiovascular: no chest pain, no intermittent leg claudication, no lower extremity edema, no palpitations, no syncope and as noted in HPI. Respiratory: no cough, no shortness of breath during exertion, no shortness of breath at r (more content not included)... [id number] History of Present illness Narrative* Since last visit, 04/14/2022, patient reports frequent falls. His hips are good, he does have some problems with his lower spine. * He would like to get his Fasenra at home. * More wheezing at night, around 9 or so, especially with activity. Some wheeze with rest, and some night time wakening. NT wakening about 2-3 times a week. He will use his inhaler or nebulizer. He feels that the nebulizer works better than the inhaler. * He is asking about thermoplasty * He denies any infections in the past two months. * He is getting recurrent head cold. He is using Dayquil and Nyquil. He wakes up very congestion, typically unilaterally. He can blows his nose and gets clear watery secretions. He has a lot of secretions in his nasal canula. His symptoms will last for a day or two and then it will improve with meds and it will resolve. Every 1-2 of these colds will come into his chest. A lot of coughing with these bouts. Typically not productive. His asthma flares and he has vocal changes. * Infusions are going well with next due July 15. . TR-[id number]-Acisvhpv 2100 DO Work Phone: [phone] 361-713212-08-2022 Evaluation note* Encounter Date Diagnosis Assessment Notes Treatment Notes Treatment Clinical Notes Apr, Bilateral primary osteoarthritis of knee (ICD-10 - M17.0) Apr, Pain in right knee (ICD-10 - M25.561) Apr, Pain in left knee (ICD-10 - M25.562) Apr, Other 1. We had a nanette g discussion with the patient today concerning their right and left knee osteoarthritis. The radiographs do show osteoarthritis of the knees. At this time the patient would like to avoid surgical intervention. We did discuss the risk and benefits of surgical versus nonoperative management. The patient would like to proceed with nonoperative management. We discussed that our options include injections, physical therapy, and the consistent use of anti-inflammatories. All 3 of these options, including their risks and benefits, were discussed at length with the patient. 2. Tylenol: Discussed taking Tylenol (acetaminophen). Recommended adjusting their dosing to 1000mg by mouth up to 3 times a day. 3. NSAIDs: Recommended continuing Celebrex and Voltaren gel 4. Physical therapy: Discussed formal physical therapy and home regimen. Patient preferred no PT at this time. 5. Injections: Discussed injections as a treatment option. After consent was obtained, the right and left knees were injected with 2cc Kenalog and 8cc bupivicaine using sterile technique. Patient tolerated the injections well. 6. Follow up 3 months or as needed Sezion Other 11-15-2022 Progress note Author Melissa Wilson [facility] March 18, 2022 3:27pm Note Date/Time March 18, 2022 2:26pm [facility] [place] [id number] Hem/Onc Follow Up Note - OP Signed Patient: Velia Bagley MR#: [id number] : 1960 Acct:[id number] Age/Sex: 62 / M Type: REG RCR Copies to: Rachel Rayo MD~ Subjective Date/Time of Service: Date of Service: 03/18/2022 Time of Service: 14:25 Chief Complaint: Patient is here for a referral from Dr Rachel Rayo for anemia. HPI: 61-year-old white gentleman seen for evaluation and management of iron deficiency anemia. He had CBC that showed microcytosis and elevated RDW. His ferritin is very low. TIBC is not in the high normal or elevated range. Most likely since there is a component of anemia of chronic disease. He has been taking oral iron supplements associated with upset stomach and constipation thatprohibited him from compliance. He also takes B12. He stated that this has notmade any difference in terms of symptom improvement. He complains of fatigue and occasional exertional dyspnea. He had symptoms of acid reflux. He has no family history of colon cancer. He had EGD and colonoscopy according to him about 5 years ago 03/18/22 felt slightly better after his iron infusions, but not much energy still occasionally has dark stool, not often though brain fog from nuid chuy unchanged is working to get colonoscopy and EGD at - is awaiting call back. Will send referral for him today has had a migraine since , is causing him to be nauseated. Is scheduled to get a Toradol shot tomorrow will get drenching night sweats 3-4 nights/week. These started about 2 months ago. Feels like he is losing weight, has lost maybe 5lbs since Jan. He is staying hydrated, is eating 1 decent meal per day and maybe a small snack otherwise labs improved but still with low iron saturation and ferritin. PMFSH - Medical History Medical History: Medical History (Last Reviewed 01/14/22 @ 10:17 by Karol Berman) Anemia Anxiety Asthma Chronic back pain COPD (chronic obstructive pulmonary disease) COVID COVID-19 jacqueline greene CVA (cerebral vascular accident) Depression GERD (gastroesophageal reflux disease) Hypertension Immunocompromised Leukocytosis Migraines On home oxygen therapy Peripheral neuropathy Pernicious anemia Pneumonia - Surgical History Surgical History: Surgical History (Last Reviewed 01/14/22 @ 10:17 by Karol Berman) H/O knee surgery Onset Date: ~1973 History of back surgery Onset Date: ~2015 L4-5 laminectomy History of right hip replacement Onset Date: ~2019 - Family History Family History: Family History (Last Updated 01/14/22 @ 10:18 by Karol Berman) Other No significant family history - Social History Smoking Status: Never smoker Substance Use Type: None Home Medications & Allergies Allergies avocado Allergy (Verified 03/18/22 14:31) Swelling baclofen Allergy (Verified 03/18/22 14:31) Weakness candesartan Allergy (Verified 03/18/22 14:31) Unknown Reaction cefdinir Allergy (Verified 03/18/22 14:31) Unknown Reaction chocolate flavor Allergy (Verified 03/18/22 14:31) Headache ciprofloxacin [From Cipro] Allergy (Verified 03/18/22 14:31) Rash diazepam [From Valium] Allergy (Verified 03/18/22 14:31) Unknown Reaction diltiazem Allergy (Verified 03/18/22 14:31) Unknown Reaction grass pollen Allergy (Verified 03/18/22 14:31) Unknown Reaction Sulfa (Sulfonamide Antibiotics) Allergy (Verified 03/18/22 14:31) Unknown Reaction indomethacin [From Indocin] Adverse Reaction (Verified 03/18/22 14:31) Hypotension Penicillins Adverse Reaction (Verified 03/18/22 14:31) Rash propranolol [From Inderal LA] Adverse Reaction (Verified 03/18/22 14:31) Hypotension Home Medications alprazolam 0.25 mg tablet 40 mg PO BID PRN Anxiety 07/29/21 [History Confirmed 03/18/22] amitriptyline 75 mg tablet 25 mg PO QHS 07/29/21 [History Confirmed 03/18/22] benralizumab 30 mg/mL subcutaneous syringe (Rip van WafelsenCobook) 30 mg subcut DIRECTED 07/29/21 [History Confirmed 03/18/22] budesonide 0.5 mg/2 mL suspension for nebulization 0.5 mg inhalation BID 07/29/21 [History Confirmed 03/18/22] erenumab-aooe 140 mg/mL subcutaneous auto-injector (Aimovig Autoinjector) 140 mgsubcut DIRECTED 07/29/21 [History Confirmed 03/18/22] fluticasone propionate 50 mcg/actuation nasal spray,suspension 50 mcg intranasalDAILY 07/29/21 [History Confirmed 03/18/22] montelukast 10 mg tablet (Singulair) 10 mg PO DAILY 07/29/21 [History Confirmed 03/18/22] omeprazole 20 mg capsule,delayed release 20 mg PO BID 07/29/21 [History Confirmed 03/18/22] potassium chloride 20 mEq tablet,extended release(part/cryst) (Klor-Con M) 20 meq PO QID 07/29/21 [History Confirmed 03/18/22] spironolactone 25 mg tablet 25 mg PO DAILY 07/29/21 [History Confirmed 03/18/22] tamsulosin 0.4 mg capsule 0.8 mg PO QHS 07/29/21 [History Confirmed 03/18/22] topiramate 200 mg tablet 100 mg PO DIRECTED 07/29/21 [History Confirmed 03/18/22] venlafaxine 150 mg capsule,extended release 24 hr 75 mg PO BID 07/29/21 [History Confirmed 03/18/22] verapamil 120 mg tablet 120 mg PO DAILY 07/29/21 [History Confirmed 03/18/22] celecoxib 200 mg capsule 200 mg PO DAILY #1 cap 07/30/21 [Rx Confirmed 03/18/22] albuterol sulfate 90 mcg/actuation aerosol inhaler (ProAir HFA) 2 puff inhalation Q4H PRN breathing 01/02/22 [History Confirmed 03/18/22] atorvastatin 40 mg tablet 40 mg PO DAILY 01/02/22 [History Confirmed 03/18/22] docusate sodium 100 mg capsule 100 mg PO BID PRN Constipation 01/02/22 [History Confirmed 03/18/22] losartan 25 mg tablet 100 mg PO DAILY 01/02/22 [History Confirmed 03/18/22] metoprolol succinate 25 mg tablet,extended release 24 hr (Toprol XL) 25 mg PO DAILY 01/02/22 [History Confirmed 03/18/22] rizatriptan 10 mg tablet 10 mg PO DIRECTED 01/02/22 [History Confirmed 03/18/22] umeclidinium 62.5 mcg/actuation blister powder for inhalation (Incruse Ellipta) 1 inh inhalation DAILY 01/02/22 [History Confirmed 03/18/22] folic acid 1 mg tablet 1 mg PO DAILY #30 tabs 01/14/22 [Rx Confirmed 03/18/22] pregabalin 100 mg capsule (Lyrica) 100 mg PO BID 03/18/22 [History Confirmed 03/18/22] Objective - Height/Weight Height/Weight: Height 5 ft 9 in Weight 88.496 kg - Pain Head Pain Intensity: 5 Physical Exam Narrative: GENERAL APPEARANCE: Well developed, well nourished, in no acute distress. SKIN: Inspection of the skin reveals no rashes, ulcerations or petechiae. HEENT: The sclerae were anicteric and conjunctivae were pink and moist. EOMI, PERRLA. The oral mucosa is moist and clear. NECK: Supple and symmetric. There was no thyroid enlargement, and no tenderness,or masses were felt. LYMPHATIC: No cervical, supraclavicular, axillary or inguinal adenopathy noted on exam LUNGS: Normal breath sounds on auscultation without rales, rhonchi, or crackles. CARDIOVASCULAR: S1 and S2, regular rate and rhythm, no murmurs, gallops, rubs. ABDOMEN: Soft, nontender, bowel sounds normal. No hepatosplenomegaly. No mass palpated. MUSCULOSKELETAL: Gait was normal. There was no tenderness or effusions noted. Muscle strength and tone were normal. EXTREMITIES: No cyanosis, clubbing or edema. NEUROLOGIC: Alert and oriented x 3. Normal affect. Results - Labs Labs: Diagram of Most Recent CBC and CMP 03/13/22 13:43 Labs - Last 7 Days 03/13/22 13:43: Iron 51, TIBC 367, Iron Saturation 13.0 L, Transferrin 262, Ferritin 20.4 L 03/13/22 13:43: Corrected WBC 4.5, Uncorrected WBC Count 4.5, RBC 5.50, Hgb 13.6, Hct 43.2, MCV 78.5 L, MCH 24.8 L, MCHC 31.6 L, RDW 28.1 H, Plt Count 223, MPV 8.5, Neut % (Auto) 66.1, Lymph % (Auto) 26.1, [place] % (Auto) 7.6, Eos % (Auto) 0.0, Baso % (Auto) 0.2, Neut # (Auto) 3.0, Lymph # (Auto) 1.2, [place] # (Auto) 0.3, Eos # (Auto) 0.0, Baso # (Auto) 0.0, Nucleated RBC % (auto) 0.1, Platelet Estimate Normal, Plt Morphology Comment Normal, RBC Morphology N/A, Hypochromasia Slight, Microcytosis Slight Assessment and Plan (1) 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c) Iron deficiency anemia d/t chronic blood loss symptomatic with moderately severs GI intolerance to oral iron supplementation Given IV Venofer Jan 2022 Will offer additional IV Venofer in Mar 2022 as counts did not completely normalize after initial dosing in Jan Colonoscopy and EGD strongly recommended by Dr. Moran at consult Will refer to gastroenterology per patient's request Continues to get IVIG infusions about every 4-6wks thru immunology. Next dose is due in the upcoming weeks, but he has been dealing with delays d/t insurance issues - Time with Patient Coordination of Care & Counseling Time: Greater than 50% of time spent with patient was for coordination of care (as documented) and [id number] counseling of patient and/or family. Dictated By: Melissa Wilson APRN DD/ 1422 Signed By: <Electronically signed by LUIS Wilson> 03/18/22 [id number] [facility] Work Phone: [phone]) 362-274111-03-2022 History of Present illness Narrative* The patient is a 62-year-old with multiple comorbidities who had COVID pneumonia about a year ago. His recent CT scan showed stability with some faint groundglass changes and parenchymal scarring localized. There was no diffuse pulmonary fibrosis. He is on nebulized budesonide and he appears so farto be tolerating the tapering of the prednisone. He continues on Fasenra along with Trelegy inhaler. His lungs are clear to auscultation. He continues on the oxygen at night and has not been wearing of late because his daughter's cats 8 through the tubing. Unfortunately he will not get through the cats. * When seen on September 16, 2021 the patient was hospitalized for bradycardia no specific cardiac issue was found. He continued on the Fasenra and ran out of his Trelegy over the last several weeks. He alsoran out of his budesonide nebulization twice a day. He has not required any rescue inhalers of lateand he has no coughing or congestion. He has lost a significant amount of weight and currently is off the prednisone. He has been off prednisone in years. He continued to deal with behavioral health issues and arrangements have been made for him to see different providers. He continued to have difficulties after his daughter's . He also was going to see sleep medicine for the potential pacemaker insertion. He was going to continue his nebulized desonide and to be maintained on Xopenex as needed and Trelegy. I wanted to avoid oral corticosteroids. In addition he continues on IVIG therapy and Dr. Brown was considering using Dupixent, nucala or Tezspire . He has no other pulse oximetry from December 05, 2021 follow-up adequate saturation was achieved at 2 L/min. * When seen on December 16, 2021 has not required any prednisone and he continues on Trelegy. He also was on Fasenra and was using his rescue inhaler perhaps once or twice a day. He has no coughing or congestion. He has recovered from a viral illness and was on IVIG. He seemed to be doing well at that point in time and his last CBC from December 06, 2021 revealed no eosinophils. He was not having much breakthrough with respect to his hyperreactive airways. * When seen last on April 15, 2022 he reported recent temperatures up to 102 degrees. His temperatures continued and his COVID testing was negative. He has been receiving iron therapy for his iron status of his anemia and he has been on Fasenra and some prednisone for exacerbation of his asthma. Several weeks ago he had increasing congestion and sputum cultures grew out staph aureus and Strep Galactiae and apparently was placed on Levaquin per Dr. Brown. The patient saw Dr. Brown yesterday and continues on his Fasenra administration. He receives his immunoglobulin replacement * He was seen by Dr. Brown in June 16, 2022 and asthma was administered to reduce his allergysymptoms at night. He continues to receive immunoglobulin and comes in for follow-up. Also the follow-up CT scan from May 01, 2022 was stable. * He was seen on July 07, 2022 and was felt to have an asthma exacerbation. He continued on Trelegy and recently Asmanex had been added to his nightly regimen. He also was on budesonide. The patient reports that over the last month or so has had increasing congestion. He feels some tightness in his ch est and has had some laryngitis at times. He feels hoarse and is coughing up generally dry in nature. He continues on his Trelegy along with budesonide nebulization twice daily. Recently Asmanex was added to his regimen at night. I told him to go on a prednisone taper and that he did not need to take both budesonide and Azmacort along with Trelegy. He was going to hold the Azmacort. * When seen on September 08, 2022 he was doing well on the Fasenra off steroids. He was using his rescue inhaler perhaps twice a day but no major exacerbations. He also was using Trelegy and budesonide and Azmacort was on hold. He had had some swelling of the left arm that was coming down. He continued on ga mmaglobulin replacement. Overall he was doing well. * The patient reported that on November 11, 2022 he continues to do fairly well from a pulmonary perspective. He continues on his Fasenra and gammaglobulin replacement. He recently saw ENT and had some irritation on his vocal cords. He is going to go speech therapy. He utilizes oxygen at night and has not been getting out much because of the air pollution and potential irritants. He has been using budesonide nebulization along with trilogy. He is off all corticosteroids. He has no chest pains or pressures. He is going to collect a sputum for culture because it was somewhat purulent of late. He has completed all his antibiotics. * Currently he is on Breztri and off Trelegy and budesonide nebulization. He intermittently has some sputum production but not marked. His major complaint is that at times over the last month he is waking at night short of breath and sits up for several minutes and then goes back to bed. He is not having increasing cough or sputum production. He has no chest pains or pressures. He continues with his Fasenra infusions along with gammaglobulin. He has no fevers or chills. No increasing swelling as outlined. [facility] Work Phone: [phone] 108-395510-18-2022 NoteCONSULTATION CONSULTATION DATE: 02/18/2022 CHIEF COMPLAINT: Low back pain. HISTORY OF PRESENT ILLNESS: This is a 62-year-old male, who is known to the Pain Clinic. The patient has had chronic pain. The patient has degenerative changes in his lumbar spine. The patient rates the pain as an 8-9/10, especially with the change in weather. Currently, the pain is 4/10. It is a burning sensation. Sitting mitigates the pain. Standing walking, activities, sneezing, bending aggravate the patient's pain as do ADLs and activities, change in weather. The patient currently takes Celebrex 200 mg q.i.d., Wentworth 5/325 b.i.d. The patient wanted to look to see whether he could increase the medication. After a long discussion and education, we explained to him that we would not be increasing things. The patient also takes Lyrica 100 mg b.i.d. The patient is also under the care of neurologist where he receives Botox and has Topamax 300 mg in the a.m. and 200 mg in the p.m. The patient is seeing a shipping & receiving lead with regards to his low iron. The patient has been seen by an orthopedist who feels that the patient should maintain a conservative route. The patient also has had his blood drawn for low T. The patient's PAST MEDICAL HISTORY / SURGICAL HISTORY / REVIEW OF SYSTEMS are noted on the chart, along with the MEDICATION LIST / ALLERGIES and RADIOLOGICAL IMAGES. PHYSICAL EXAM: Upon physical examination, this is a pleasant, 62-year-old gentleman, who looks older than stated age. VITAL SIGNS: At 152/87 with a heart rate of 91. At a height of 5'9 , the patient weighs 88 kg. HEAD: Atraumatic, normocephalic. Poor dentition is noted. NECK: Cervicothoracic kyphosis is present. HEART: No orthopnea. LUNGS: Non-labored breathing. BACK: Loss of lumbar lordosis is noted. Tenderness is noted on the left hand side, along the posterior elements upon extension, compression, direct palpation. EXTREMITIES: Global atrophy of the muscles is present bilaterally. This appears to be disuse also. The patient ambulates with a cane; however, his balance is maintained. NEUROLOGICALLY: No radicular symptomatology is noted. PSYCHIATRICALLY: Affect is appropriate. IMPRESSION: Chronic low back pain, lumbar degenerative disc disease, bilateral knee pain, lumbar spondylosis. PLAN: We will have the patient start aquatic therapy, especially during the winter time. The patient will get an x-ray of his lumbar spine, flexion/extension. We shall await the blood draws to see whether the patient is a candidate for testosterone supplementation. The patient will be scheduled for a diagnostic lumbar medial branch block on the left hand side at the level of L2-3 and 4-5. In the interim, Lyrica 100 mg b.i.d. has been refilled for the patient as has Wentworth 5/325 b.i.d. CC: Rachel Rayo M.D.The [id number] Evaluation note* Encounter Date Diagnosis Assessment Notes Treatment Notes Treatment Clinical Notes Jan, Pain in right knee (ICD-10 - M25.561) Jan, Pain in left knee (ICD-10 - M25.562) Jan, Other 1. We had a nanette g discussion with the patient today concerning their right and left knee osteoarthritis. The radiographs do show osteoarthritis of the knees. At this time the patient would like to avoid surgical intervention. We did discuss the risk and benefits of surgical versus nonoperative management. The patient would like to proceed with nonoperative management. We discussed that our options include injections, physical therapy, and the consistent use of anti-inflammatories. All 3 of these options, including their risks and benefits, were discussed at length with the patient. 2. Tylenol: Discussed taking Tylenol (acetaminophen). Recommended adjusting their dosing to 1000mg by mouth up to 3 times a day. 3. NSAIDs: Recommended continuing his Celebrex. Also recommended utilizing Voltaren gel 4-5 times a day. 4. Physical therapy: Discussed formal physical therapy and home regimen. Patient preferred no PT at this time. 5. Injections: Discussed injections as a treatment option. Would not recommend injections at this time considering he just had one in December by his pain management physician as well as the fact that he is not having pain on a consistent basis. 6. Follow up as needed Sezion Other 09-14-2022 History of Present illness Narrative* Botox every 90 days. * last 01-15-2022 * Has been in intractable migraine cycle for past several days and would like Toradol protocol to break today. * Treating with Sumatriptan injection and follws with Rizatriptan oral if needed. Sometimes adds Oxygen * Notes that Sumatriptan injections have been difficult for him to administer properly lately . Son can inject but is not always available. Most effective treatment for him. Has spoken with pharmacist and no other devices available. He can go to pharmacy and they will administer as well. Does not have any neighbors at home during the day that he can ask to assist. * Prednisone taper earlier this month for asthma exacerbate. Finished before current migraine cycle started * Receives gamunex with home infusion every 4 weeks. * Migraine occurs right frontal. Lightening bolt pain, knife through eye at times, right eye irritation * Associated nausea, light and noise sensitivity, rare vomiting, poor appetite. * Triggers are certain smells, temp changes. bright lights, loud noises, weather change. Stress, certain smells. * Experiencing 13-15 migraines days per month. Decreased from 22 per month before Botox and Aimovig. * Continues Aimovig monthly * Pain management for back pain, neck pain and joint pain. Vicodin PRN. Dr Jiménez Wants to do a nerve ablation for pain in back. Velia is not excited about this * Sees a shipping & receiving lead, Dr Muhammad, [facility] for help with anemia. Iron infusions x 3 . Has seen a laboratory response. * Had gammunex and had best response ever. * Patient had 15 headache days a month or more, 8 meeting migraine criteria. They had tried and failed 3 preventative and 3 abortives. Presently their headaches are well controlled because of Botox Therapy. It has reduced the headaches by 50%. DX-Htophxkot-Iebxxs 170 DO Work Phone: [phone]) [phone] Consult note Author Alina Moran [facility] January 14, 2022 4:22pm Note Date/Time January 14, 2022 4:18pm [facility] [place] at [address] [address] Hem/Onc Consult Note - OP Signed Patient: Velia Bagley MR#: [id number] : 1960 Acct:[id number] Age/Sex: 61 / M Type: REG RCR Copies to: Rachel Rayo MD~ HPI Date/Time of Service: Date of Service: 01/14/2022 Time of Service: 16:16 Referring Provider/PCP: Referring Provider: Rachel Rayo MD PCP: Rachel Rayo MD - History of Present Illness Reason for Consultation: Iron deficiency anemia Chief Complaint: Patient is here for a referral from Dr Rachel Rayo for anemia. HPI: 61-year-old white gentleman seen for evaluation and management of iron deficiency anemia. He had CBC that showed microcytosis and elevated RDW. His ferritin is very low. TIBC is not in the high normal or elevated range. Most likely since there is a component of anemia of chronic disease. He has been taking oral iron supplements associated with upset stomach and constipation thatprohibited him from compliance. He also takes B12. He stated that this has notmade any difference in terms of symptom improvement. He complains of fatigue and occasional exertional dyspnea. He had symptoms of acid reflux. He has no family history of colon cancer. He had EGD and colonoscopy according to him about 5 years ago [facility] - Medical History Medical History: Medical History (Last Reviewed 01/14/22 @ 10:17 by Karol Berman) Anemia Anxiety Asthma Chronic back pain COPD (chronic obstructive pulmonary disease) COVID COVID-19 long hauler CVA (cerebral vascular accident) Depression GERD (gastroesophageal reflux disease) Hypertension Immunocompromised Leukocytosis Migraines On home oxygen therapy Peripheral neuropathy Pernicious anemia Pneumonia - Surgical History Surgical History: Surgical History (Last Reviewed 01/14/22 @ 10:17 by Karol Berman) H/O knee surgery Onset Date: ~1973 History of back surgery Onset Date: ~2015 L4-5 laminectomy History of right hip replacement Onset Date: ~2019 - Family History Family History: Family History (Last Updated 01/14/22 @ 10:18 by Karol Berman) Other No significant family history - Social History Smoking Status: Never smoker Substance Use Type: None Home Medications & Allergies Allergies avocado Allergy (Verified 01/14/22 10:30) Swelling baclofen Allergy (Verified 01/14/22 10:30) Weakness candesartan Allergy (Verified 01/14/22 10:33) Unknown Reaction cefdinir Allergy (Verified 01/14/22 10:30) Unknown Reaction chocolate flavor Allergy (Verified 01/14/22 10:30) Headache ciprofloxacin [From Cipro] Allergy (Verified 01/14/22 10:30) Rash diazepam [From Valium] Allergy (Verified 01/14/22 10:33) Unknown Reaction diltiazem Allergy (Verified 01/14/22 10:33) Unknown Reaction grass pollen Allergy (Verified 01/14/22 10:30) Unknown Reaction Sulfa (Sulfonamide Antibiotics) Allergy (Verified 01/14/22 10:30) Unknown Reaction indomethacin [From Indocin] Adverse Reaction (Verified 01/14/22 10:30) Hypotension Penicillins Adverse Reaction (Verified 01/14/22 10:30) Rash propranolol [From Inderal LA] Adverse Reaction (Verified 01/14/22 10:30) Hypotension Home Medications alprazolam 0.25 mg tablet 0.25 mg PO BID PRN Anxiety 07/29/21 [History Confirmed 01/14/22] amitriptyline 75 mg tablet 25 mg PO QHS 07/29/21 [History Confirmed 01/14/22] benralizumab 30 mg/mL subcutaneous syringe (Fasenra) 30 mg subcut DIRECTED 07/29/21 [History Confirmed 01/14/22] budesonide 0.5 mg/2 mL suspension for nebulization 0.5 mg inhalation BID 07/29/21 [History Confirmed 01/14/22] erenumab-aooe 140 mg/mL subcutaneous auto-injector (Aimovig Autoinjector) 140 mgsubcut DIRECTED 07/29/21 [History Confirmed 01/14/22] fluticasone propionate 50 mcg/actuation nasal spray,suspension 50 mcg intranasalDAILY 07/29/21 [History Confirmed 01/14/22] montelukast 10 mg tablet (Singulair) 10 mg PO DAILY 07/29/21 [History Confirmed 01/14/22] omeprazole 20 mg capsule,delayed release 20 mg PO BID 07/29/21 [History Confirmed 01/14/22] potassium chloride 20 mEq tablet,extended release(part/cryst) (Klor-Con M) 20 meq PO QID 07/29/21 [History Confirmed 01/14/22] spironolactone 25 mg tablet 25 mg PO DAILY 07/29/21 [History Confirmed 01/14/22] tamsulosin 0.4 mg capsule 0.8 mg PO QHS 07/29/21 [History Confirmed 01/14/22] topiramate 200 mg tablet 100 mg PO DIRECTED 07/29/21 [History Confirmed 01/14/22] venlafaxine 150 mg capsule,extended release 24 hr 150 mg PO BID 07/29/21 [History Confirmed 01/14/22] verapamil 120 mg tablet 120 mg PO DAILY 07/29/21 [History Confirmed 01/14/22] celecoxib 200 mg capsule 200 mg PO DAILY #1 cap 07/30/21 [Rx Confirmed 01/14/22] albuterol sulfate 90 mcg/actuation aerosol inhaler (ProAir HFA) 2 puff inhalation Q4H PRN breathing 01/02/22 [History Confirmed 01/14/22] atorvastatin 40 mg tablet 40 mg PO DAILY 01/02/22 [History Confirmed 01/14/22] docusate sodium 100 mg capsule 100 mg PO BID PRN Constipation 01/02/22 [History Confirmed 01/14/22] losartan 25 mg tablet 100 mg PO DAILY 01/02/22 [History Confirmed 01/14/22] metoprolol succinate 25 mg tablet,extended release 24 hr (Toprol XL) 25 mg PO DAILY 01/02/22 [History Confirmed 01/14/22] rizatriptan 10 mg tablet 10 mg PO DIRECTED 01/02/22 [History Confirmed 01/14/22] umeclidinium 62.5 mcg/actuation blister powder for inhalation (Incruse Ellipta) 1 inh inhalation DAILY 01/02/22 [History Confirmed 01/14/22] folic acid 1 mg tablet 1 mg PO DAILY #30 tabs 01/14/22 [Rx] Subjective Data Subjective/ROS - Narrative: CONSTITUTIONAL: No weight loss, fever, chills, weakness . Complains of fatigue that gets worse at times HEENT: Eyes: No visual loss, blurred vision, double vision or yellow sclerae. Ears, Nose, Throat: No hearing loss, epistaxis. SKIN: No rash or itching. CARDIOVASCULAR: No chest pain, chest pressure or chest discomfort. No palpitations or edema. RESPIRATORY: Occasional exertional dyspnea, cough or hemoptysis. GASTROINTESTINAL: No dysphagia, nausea, vomiting or diarrhea. No abdominal pain, melena, hematochezia. GENITOURINARY: No dysuria, urinary frequency or urgency. NEUROLOGICAL: No headache, dizziness, syncope, numbness or tingling in the extremities. MUSCULOSKELETAL: No muscle, back pain, joint pain or stiffness. HEMATOLOGIC: No bleeding or bruising. LYMPHATICS: No enlarged nodes. PSYCHIATRIC: No history of depression or anxiety. ENDOCRINOLOGIC: No reports of sweating, cold or heat intolerance. No polyuria or polydipsia. ALLERGIES: No history of asthma, hives, eczema or rhinitis. Objective - Height/Weight Height/Weight: Height 5 ft 9 in Weight 88.496 kg - Vital Signs Vital Signs: 01/14/22 10:24 Temperature 98 F Pulse Rate [Right Brachial] 64 Respiratory Rate 20 Blood Pressure [Right Arm] 114/79 02 Sat by Pulse Oximetry 96 Oxygen Delivery Method Room Air Physical Exam Narrative: GENERAL APPEARANCE: Well developed, well nourished, in no acute distress. SKIN: Inspection of the skin reveals no rashes, ulcerations or petechiae. HEENT: The sclerae were anicteric and conjunctivae were pink and moist. EOMI, PERRLA. The oral mucosa is moist and clear. NECK: Supple and symmetric. There was no thyroid enlargement, and no tenderness,or masses were felt. CHEST: Normal contour without any kyphoscoliosis. LUNGS: Normal breath sounds on auscultation without rales, rhonchi, or crackles. CARDIOVASCULAR: S1 and S2, regular rate and rhythm, no murmurs, gallops, rubs. ABDOMEN: Soft, nontender, bowel sounds normal. No hepatosplenomegaly. No mass palpated. LYMPH NODES: No lymphadenopathy was appreciated in the neck, axillae or groin. MUSCULOSKELETAL: Gait was normal. There was no tenderness or effusions noted. Muscle strength and tone were normal. EXTREMITIES: No cyanosis, clubbing or edema. NEUROLOGIC: Alert and oriented x 3. Normal affect. Gait was normal. Sensation totouch was normal. - ECOG Performance Status ECOG Score: 0 Results - Labs Labs: Diagram of Most Recent CBC and CMP 01/14/22 12:02 Labs - Last 7 Days 01/14/22 12:02: Corrected WBC 4.6, Uncorrected WBC Count 4.6, RBC 4.75, Hgb 9.5 L, Hct 31.6 L, MCV 66.5 L, MCH 20.0 L, MCHC 30.1 L, RDW 19.6 H, Plt Count 221, MPV 8.5, Neut % (Auto) 64.2, Lymph % (Auto) 28.0, [place] % (Auto) 7.5, Eos % (Auto) 0.0, Baso % (Auto) 0.3, Neut # (Auto) 3.0, Lymph # (Auto) 1.3, [place] # (Auto) 0.3, Eos # (Auto) 0.0, Baso # (Auto) 0.0, Nucleated RBC % (auto) 0.1, Platelet Estimate Normal, Plt Morphology Comment Normal, RBC Morphology N/A, Polychromasia Slight, Hypochromasia Moderate, Anisocytosis Slight, Microcytosis Slight 01/14/22 11:46: Iron 20 L, TIBC 405, Iron Saturation 4.0 L, Transferrin 289, Ferritin 6.0 L Assessment and Plan (1) 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c) Patient is symptomatic and has moderately severe GI intolerance from oral iron medications. We will schedule him for Venofer for infusions. Unclear if he haspernicious anemia or even B12 deficiency. We will check gastrin, parietal cell and intrinsic factor antibodies for the pernicious anemia. In the meantime I told him to continue with B12 injections. Given that its documented iron deficiency and has been a while for bidirectional endoscopy would strongly recommend EGD and colonoscopy - Time with Patient Coordination of Care & Counseling Time: Greater than 50% of time spent with patient was for coordination of care (as documented) and [id number] counseling of patient and/or family. Dictated By: Alina Moran MD DD/ [id number] Signed By: <Electronically signed by Alina Moran MD> 01/14/22 1622 [facility] Work Phone: [phone] NoteHNO ID: [id number] Author: Gela Ruffin MD Service: ? Author Type: Physician Type: Progress Notes Filed: 01/08/2022 12:11 PM Note Text: This note is formatted with the Assessment and Plan first and Subjective and Objective sections to follow. Assessment: 1. Gastroesophageal reflux disease 2. Mild obstructive sleep apnea Plan: The patient has several months of a sensation of pain in his throat with swallowing. The patient has a history of acid reflux and is taking omeprazole 20 mg twice daily. I recommended that he increase this to 40 mg twice daily. Today's exam, including flexible laryngoscopy, revealed only erythema of the arytenoid mucosa. I suspect his discomfort is due to acid reflux that is not quite controlled. If this increase in medication does not resolve his symptoms, I would recommend that he follow-up with gastroenterology. The patient also brought with him a sleep study from [facility] from February 22, 2020. This showed an apnea-hypopnea index of 10.1 based on a 4% desaturation calculation. When used with a 3% desaturation calculation he had an apnea-hypopnea index of 17.5. I do not feel that the patient is a candidate for hypoglossal nerve stimulation at this point. He is using oxygen therapy at home and based on his mild obstructive sleep apnea I do not feel that he he needs surgical intervention. Subjective: Mr. VELIA BAGLEY is a 61 year old male returning for throat complaints. Since last seen, the patient notes that he has had several months of a sore throat with eating. The patient notes that it takes him time to eat because he has anxiety about swallowing. The patient has a history of acid reflux and is being treated with omeprazole 20 mg twice daily. The patient notes that he does not have heartburn currently on this regimen. The patient is using oxygen therapy for his obstructive sleep apnea. He is seen mostly at [facility] and was recommended to consider hypoglossal nerve stimulation. He does not wish to pursue this therapy at this point. ALLERGIES Allergen Reactions Avocado Swelling Baclofen Other: See Comments Dizziness and full body weakness Candasartan [Other] Rash Chocolate Unknown Ciprofloxacin (Bulk) Anaphylaxis Grass Pollen Unknown Indocin [Indomethac* Rash Ivp Dye [Iodine] Anaphylaxis Penicillins Rash Lima Oil Unknown Propranolol Other: See Comments Severe low bp and kidneys shutting down. Sulfa (Sulfonamide * Rash, Itching Valium [Diazepam] Other: See Comments Depression tamsulosin (FLOMAX) 0.4 mg, TAKE 2 CAPSULES BY MOUTH EVERY DAY AT BEDTIME *MUST SCHEDULE FOLLOW UP*, Disp: 60 capsule, Rfl: 1 acetylcysteine (MUCOMYST) 100 mg/mL (10 %) nebulizer solution, Inhale 1 mL as instructed every 12 hours, discard excess in vial after 4 days. (Patient not taking: Reported on 01/14/2021 ), Disp: 60 mL, Rfl: 0 gabapentin (NEURONTIN) 300 mg capsule, Take 1 capsule by mouth every 8 hours., Disp: , Rfl: topiramate (TOPAMAX) 100 mg tablet, Take 1 tablet by mouth twice daily., Disp: , Rfl: SUMAtriptan Succinate (IMITREX STAT) 6 mg/0.5 mL cartridge, Inject 6 mg subcutaneously. One injection at onset of migraine. Repeat 2 hours later as needed., Disp: , Rfl: levalbuterol tartrate HFA 45 mcg/actuation inhaler, Inhale 1-2 Puffs as instructed every 4 hours as needed for Wheezing/Shortness of Breath., Disp: , Rfl: acetaminophen (TYLENOL) 325 mg tablet, Take 650 mg by mouth every 4 hours as needed., Disp: , Rfl: albuterol (PROVENTIL) 2.5 mg/3 mL nebulizer solution, Inhale 2.5 mg as instructed every 6 hours as needed., Disp: , Rfl: verapamil SR (CALAN SR, ISOPTIN SR) 120 mg CR tablet, Take 1 tablet by mouth once daily., Disp: , Rfl: docusate sodium (COLACE) 100 mg capsule, Take 1 capsule by mouth twice daily as needed for Constipation., Disp: , Rfl: 0 aspirin 81 mg chewable tablet, Take 81 mg by mouth twice daily., Disp: , Rfl: omeprazole (PRILOSEC) 20 mg capsule, Take 20 mg by mouth twice daily., Disp: , Rfl: AIMOVIG AUTOINJECTOR 140 mg/mL syringe, Inject 140 mg subcutaneously once every month. Take on the , Disp: , Rfl: venlafaxine ER (EFFEXOR XR) 75 mg 24 hr capsule, Take 75 mg by mouth once daily., Disp: , Rfl: levocetirizine (XYZAL) 5 mg tablet, Take 2.5 mg by mouth daily at bedtime. , Disp: , Rfl: tiotropium (SPIRIVA) 18 mcg inhalation capsule, Inhale 18 mcg as instructed once daily., Disp: , Rfl: levalbuterol (XOPENEX) 1.25 mg/3 mL nebulizer solution, Use 1 Ampule via nebulizer every 4 hours as needed., Disp: , Rfl: calcitonin,salmon,synthetic (CALCITONIN, SALMON, NASAL), Use 1 Inhalation in the nose once daily. (alternating nostrils every other day) , Disp: , Rfl: amitriptyline (ELAVIL) 50 mg tablet, Take 50 mg by mouth daily at bedtime. , Disp: , Rfl: atorvastatin (LIPITOR) 40 mg tablet, Take 40 mg by mouth once daily. , Disp: , Rfl: FASENRA 30 mg/mL injection (more content not included)...[facility]08-02-2022 NoteCONSULTATION PROCEDURE DATE: 12/03/2021 PREOPERATIVE DIAGNOSIS: Bilateral knee pain, osteoarthritis of the knees bilaterally, here for bilateral knee injection. PROCEDURE: Subsequent to obtaining informed consent, the patient was placed in the sitting position. Alcohol prep was used to sterilize the site. A 25 gauge needle was advanced and it comes to rest in the right knee joint, followed by the left knee joint. Marcaine 0.125% along with Kenalog 40 mg are injected to each knee. We will be requesting the patient to have an orthopedic consult, given the severe degenerative changes noted, especially in the right knee. We shall also look to get authorization, should the patient not be a surgical candidate due to his comorbidities for hyaluronic acid injection. In the meantime, urological consult has been suggested for the patient for sarcopenia and low T. CC: Rachel Rayo M.D.The [id number] History of Present illness Narrative* Since last visit, 11/29/2021, patient saw Dr. Magana 02/12/2022 for a head cold and was started on corticosteroids for low-grade temp and flare of his asthma. They will be attempting to taper his steroids. CXR that day was negative. He developed another head cold day and yesterday at [facility],started coughing up phlegm that filled his mouth. He denies any phlegm today and will provide phlegm for a sputum evaluation at [facility]. * Patient has had about 12 infusions and tolerates them well. He requests IgG level. * He had 3 iron infusions for hemoglobin of 9. He would like his iron level checked today because he does not see Hematology for a few months. His shipping & receiving lead told him the infusions may be interferingwith his iron. * He states one of his partner's friends recommended medical marijuana but he is not interested. SD-Epjwvvnpzj-Pdadvgjw Francisco DO Work Phone: [phone]) [phone] NoteCONSULTATION CONSULTATION DATE: HISTORY OF PRESENT ILLNESS: This is a 61-year-old gentleman, returned to the clinic for a three month follow up for his chronic head and neck pain. He is currently under the care of Dr. Matthews, Neurology, at [facility]. He has received Botox injections and is scheduled mid December to receive another series of injections. He is currently on Topamax, Aimovig, immunoglobulins, Lyrica, Wentworth and Celebrex. He is a COVID long hauler, wears home O2. Today, his pain is a 3/10 to his head and anterior portion of his C-spine, which he describes as achy. He is experiencing blinding headaches in the right eye and has an appointment with an cut out marker in December. The patient is inquiring about possible knee injections. He was, in the past, seeing an orthopedist at the [facility] for these injections. Activities that aggravate his headache pain are twisting, rolling over in bed, stress, smells, light and physical activity. Patient's REVIEW OF SYSTEMS / PAST MEDICAL HISTORY / ALLERGIES and IMAGES have been reviewed and they are noted on the chart. PHYSICAL EXAM: VITAL SIGNS: Blood pressure 124/79, heart rate is 88. Temperature is 96.9. He is 5'9 , weighs 87 kg. GENERAL APPEARANCE: Pleasant, appropriate, in no acute distress. FOCUSED EXAM - NECK: Range of motion is guarded in lateral rotation and flexion/extension. That motion reproduces anterior neck pain as well as headaches. Trapezius muscles are non-spasmodic. MUSCULOSKELETAL: Bilateral upper extremities are with motor 4/5 bilaterally. Patient does have diffuse muscle atrophy, upper and lower extremities. NEUROLOGICAL: Negative polyneuropathy to upper extremities. Patient has diffuse radicular pain down right lower extremity from hip to the foot, along the L5-S1 dermatome. Blunted bilateral patellar reflexes. IMPRESSION: Chronic pain syndrome, headaches, lumbar degenerative disc, lumbar radiculitis. PLAN: Patient is requesting that his Wentworth be increased, as he feels he is not getting significant relief with twice a day. He was on t.i.d. in the past and we will increase it at this time. The hope is that after his next round of Botox injections, that we can decrease him back down to b.i.d. We will obtain bilateral knee x-rays and pre-authorize for bilateral knee steroid injections. He will be brought back to the clinic upon approval. Patient agrees with this plan of care.The [id number] History of Present illness Narrative* The patient is a 62-year-old with multiple comorbidities who had COVID pneumonia about a year ago. His recent CT scan showed stability with some faint groundglass changes and parenchymal scarring localized. There was no diffuse pulmonary fibrosis. He is on nebulized budesonide and he appears so farto be tolerating the tapering of the prednisone. He continues on Fasenra along with Trelegy inhaler. His lungs are clear to auscultation. He continues on the oxygen at night and has not been wearing of late because his daughter's cats 8 through the tubing. Unfortunately he will not get through the cats. * When seen on September 16, 2021 the patient was hospitalized for bradycardia no specific cardiac issue was found. He continued on the Fasenra and ran out of his Trelegy over the last several weeks. He alsoran out of his budesonide nebulization twice a day. He has not required any rescue inhalers of lateand he has no coughing or congestion. He has lost a significant amount of weight and currently is off the prednisone. He has been off prednisone in years. He continued to deal with behavioral health issues and arrangements have been made for him to see different providers. He continued to have difficulties after his daughter's . He also was going to see sleep medicine for the potential pacemaker insertion. He was going to continue his nebulized desonide and to be maintained on Xopenex as needed and Trelegy. I wanted to avoid oral corticosteroids. In addition he continues on IVIG therapy and Dr. Brown was considering using Dupixent, nucala or Tezspire . He has no other pulse oximetry from December 05, 2021 follow-up adequate saturation was achieved at 2 L/min. * When seen on December 16, 2021 has not required any prednisone and he continues on Trelegy. He also was on Fasenra and was using his rescue inhaler perhaps once or twice a day. He has no coughing or congestion. He has recovered from a viral illness and was on IVIG. He seemed to be doing well at that point in time and his last CBC from December 06, 2021 revealed no eosinophils. He was not having much breakthrough with respect to his hyperreactive airways. * When seen last on April 15, 2022 he reported recent temperatures up to 102 degrees. His temperatures continued and his COVID testing was negative. He has been receiving iron therapy for his iron status of his anemia and he has been on Fasenra and some prednisone for exacerbation of his asthma. Several weeks ago he had increasing congestion and sputum cultures grew out staph aureus and Strep Galactiae and apparently was placed on Levaquin per Dr. Brown. The patient saw Dr. Brown yesterday and continues on his Fasenra administration. He receives his immunoglobulin replacement * He was seen by Dr. Brown in June 16, 2022 and asthma was administered to reduce his allergysymptoms at night. He continues to receive immunoglobulin and comes in for follow-up. Also the follow-up CT scan from May 01, 2022 was stable. * He was seen on July 07, 2022 and was felt to have an asthma exacerbation. He continued on Trelegy and recently Asmanex had been added to his nightly regimen. He also was on budesonide. The patient reports that over the last month or so has had increasing congestion. He feels some tightness in his ch est and has had some laryngitis at times. He feels hoarse and is coughing up generally dry in nature. He continues on his Trelegy along with budesonide nebulization twice daily. Recently Asmanex was added to his regimen at night. I told him to go on a prednisone taper and that he did not need to take both budesonide and Azmacort along with Trelegy. He was going to hold the Azmacort. * When seen on September 08, 2022 he was doing well on the Fasenra off steroids. He was using his rescue inhaler perhaps twice a day but no major exacerbations. He also was using Trelegy and budesonide and Azmacort was on hold. He had had some swelling of the left arm that was coming down. He continued on ga mmaglobulin replacement. Overall he was doing well. * The patient continues to do fairly well from a pulmonary perspective. He continues on his Fasenra and gammaglobulin replacement. He recently saw ENT and had some irritation on his vocal cords. He is going to go speech therapy. He utilizes oxygen at night and has not been getting out much because ofthe air pollution and potential irritants. He has been using budesonide nebulization along with trilogy. He is off all corticosteroids. He has no chest pains or pressures. He is going to collect a sputum for culture because it was somewhat purulent of late. He has completed all his antibiotics. [facility] [address] [place] Work Phone: [phone]) [phone] History of Present illness Narrative* Intractable migraine. Would like toradol today, storm systems have been triggering headaches. * Last Botox injections 09-16-2021. Very helpful. * Has decreased Topamax to 100mg AM and dinner dose and 200 at HS * Added 75mg lyrica twice daily with pain management. To increase per pain management. Sees PM September 02. * Vicodin with pain management for back pain. Doing better lyrica than gabapentin * Treating migraines with Rizatriptan 2 to 3 a week. and Sumatriptan injections 1 x a week. Lies downin dark room. * Brings migraine pain down to small buzz * Sometimes will try OTC first. * Migraine occurs right sided front, can radiate to back. * Associated nausea, light and noise sensitivity. * Triggers are bright lights, loud sounds, strong smells, weather change, stress, lack of sleep. * Daily 24/7 headache component as well. Pain ranges 2-3/10. Also occurs right frontal. Sometimes right side of head. * No associated symptoms * Continue monthly Aimovig and verapamil for prevention. As well as topiramate. Denies constipation * Patient had 15 headache days a month or more, 8 meeting migraine criteria. They had tried and failed 3 preventative and 3 abortives. Presently their headaches are well controlled because of Botox Therapy. It has reduced the headaches by 50%. * Trouble falling asleep and staying asleep. due to lifestyle of having to drive kids to work. amitriptyline helps with sleep. some times adds in a afternoon nap. * Mood is in fair-good control currently. * Nuclear stress test at [facility] was normal. Cardiology did not dc triptans. [id number] 170 DO Work Phone: [phone] History of Present illness Narrative* The patient is a 62-year-old with multiple comorbidities who had COVID pneumonia about a year ago. His recent CT scan showed stability with some faint groundglass changes and parenchymal scarring localized. There was no diffuse pulmonary fibrosis. He is on nebulized budesonide and he appears so farto be tolerating the tapering of the prednisone. He continues on Fasenra along with Trelegy inhaler. His lungs are clear to auscultation. He continues on the oxygen at night and has not been wearing of late because his daughter's cats 8 through the tubing. Unfortunately he will not get through the cats. * When seen on September 16, 2021 the patient was hospitalized for bradycardia no specific cardiac issue was found. He continued on the Fasenra and ran out of his Trelegy over the last several weeks. He alsoran out of his budesonide nebulization twice a day. He has not required any rescue inhalers of lateand he has no coughing or congestion. He has lost a significant amount of weight and currently is off the prednisone. He has been off prednisone in years. He continued to deal with behavioral health issues and arrangements have been made for him to see different providers. He continued to have difficulties after his daughter's . He also was going to see sleep medicine for the potential pacemaker insertion. He was going to continue his nebulized desonide and to be maintained on Xopenex as needed and Trelegy. I wanted to avoid oral corticosteroids. In addition he continues on IVIG therapy and Dr. Brown was considering using Dupixent, nucala or Tezspire . He has no other pulse oximetry from December 05, 2021 follow-up adequate saturation was achieved at 2 L/min. * When seen on December 16, 2021 has not required any prednisone and he continues on Trelegy. He also was on Fasenra and was using his rescue inhaler perhaps once or twice a day. He has no coughing or congestion. He has recovered from a viral illness and was on IVIG. He seemed to be doing well at that point in time and his last CBC from December 06, 2021 revealed no eosinophils. He was not having much breakthrough with respect to his hyperreactive airways. * When seen last on April 15, 2022 he reported recent temperatures up to 102 degrees. His temperatures continued and his COVID testing was negative. He has been receiving iron therapy for his iron status of his anemia and he has been on Fasenra and some prednisone for exacerbation of his asthma. Several weeks ago he had increasing congestion and sputum cultures grew out staph aureus and Strep Galactiae and apparently was placed on Levaquin per Dr. Brown. The patient saw Dr. Brown yesterday and continues on his Fasenra administration. He receives his immunoglobulin replacement * He was seen by Dr. Brown in June 16, 2022 and asthma was administered to reduce his allergysymptoms at night. He continues to receive immunoglobulin and comes in for follow-up. Also the follow-up CT scan from May 01, 2022 was stable. * He was seen last on July 07, 2022 and was felt to have an asthma exacerbation. He continued on Trelegy and recently Asmanex had been added to his nightly regimen. He also was on budesonide. The patient reports that over the last month or so has had increasing congestion. He feels some tightness in his chest and has had some laryngitis at times. He feels hoarse and is coughing up generally dry in nature. He continues on his Trelegy along with budesonide nebulization twice daily. Recently Asmanexwas added to his regimen at night. I told him to go on a prednisone taper and that he did not need to take both budesonide and Azmacort along with Trelegy. He was going to hold the Azmacort. * Currently, he is doing quite well. He is getting the Fasenra injections. He is off steroids. He is using his rescue inhaler twice a day but has had no major exacerbations. He is utilizing his Trelegyand budesonide and the Azmacort is on hold. He had some swelling of his right arm over the last dayor so but seems to be coming down. His percent saturation was somewhat reduced by the VNA. [facility] [address] [place] Work Phone: 1([phone]) 894-523304-21-2022 Chief complaint Narrative - Reported* Neurologic Evaluation. * An interactive audio and video telecommunication system which permits real time communications between the patient (at the originating site) and provider (at the distant site) was utilized to providethis telehealth service. * Verbal consent was requested and obtained from VELIA BAGLEY on this date, 08/22/2021 02:00 PM , fora telehealth visit. * Follow up migraine management [id number] 170 DO Work Phone: [phone]) [phone] History of Present illness Narrative* Intractable migraine. Toradol injection yesterday with oral protocol following. * Around 1 year anniversary of daughters illness and * Last Botox injections 06-19-2021. Very helpful. occasionally will have trouble chewing tough food. * Has decreased Topamax to 100mg AM and dinner dose and 200 at HS * Added 75mg lyrica twice daily with pain management. To increase per pain management. Sees PM September 02. * Discontinued Gabapentin. * Vicodin with pain management for back pain. * Treating migraines with Rizatriptan 2 to 3 a week. and Sumatriptan injections 1 x a week. Lies downin dark room. * Brings migraine pain down to small buzz * Sometimes will try OTC first. * Migraine occurs right sided front, can radiate to back. * Associated nausea, light and noise sensitivity. * Triggers are bright lights, loud sounds, strong smells, weather change, stress, lack of sleep. * Daily 24/7 headache component as well. Pain ranges 2-3/10. Also occurs right frontal. Sometimes right side of head. * No associated symptoms * Continue monthly Aimovig and verapamil for prevention. As well as topiramate. Denies constipation * Patient had 15 headache days a month or more, 8 meeting migraine criteria. They had tried and failed 3 preventative and 3 abortives. Presently their headaches are well controlled because of Botox Therapy. It has reduced the headaches by 50%. * Trouble falling asleep and staying asleep. due to lifestyle of having to drive kids to work * Mood is in fair-good control currently. * Had a copd flair was hospitalized at [facility]. Had a nuclear stress test next week. MI-[id number] 170 DO Work Phone: [phone] Discharge summary Author Ketan Heard [facility] July 30, 2021 9:45am Note Date/Time July 30, 2021 9:4 2am [facility] [address] [place], [place] [id number] Discharge Summary Signed Patient: Velia Bagley MR#: [id number] : 1960 Acct:[id number] Age/Sex: 61 / M Adm Date: 2 Loc: Room: [address] [place] [address]: Ketan Heard MD Copies to: MD Ketan Garcia MD~ Providers Date of Discharge: 07/30/21 Discharging Provider: Ketan Heard Primary Care Provider: Rachel Rayo Consults: 07/29/21 11:19 Consult to Cardiology Routine Consult to Occupational Therapy Routine Consult to Physical Therapy Routine Consult to Speech Therapy Routine Discharge Diagnosis (1) Elevated troponin: (2) Shortness of breath: (3) KRISTA (acute kidney injury): (4) Chronic back pain: (5) Migraines: (6) Hypertension: (7) RTA (renal tubular acidosis): Final Diagnosis Final Discharge Diagnosis: As listed above Summary Hospital Course Hospital course: Patient presented to [place] with shortness of breath. He is known to have asthma. He is on multiple medications for asthma. Patient was found to have slight elevation of the troponin therefore [place] team requested to transfer to [facility]. I accepted the patient here. Repeat troponin is up slightly. Patient strongly denied having any chest pain. Patient was seen by cardiology team who cleared the patient to be discharged to home and have an outpatient stress test. This will be arranged for patient. Patient may benefit from a small dose of beta-erika however patient listed beta-erika on his allergy list. Beta-erika caused him to have hypertension. In addition patient is known to have asthma. Beta-erika could exacerbate his bronchospasm. This will need to be reconsidered in the outpatient setting preferably after the stress test is completed. Patient was found to have acute kidney failure with mild metabolic acidosis. Patient reported that he has been taking the Celebrex 800 mg daily which is 4 times the maximum recommended dose. He said he takes it for migraine. Celebrex was placed on hold. Patient was given IV fluid infusion. Complete resolution of his kidney failure. No indication for imaging at this time however patient may need to have renal ultrasound if he develops recurrent kidney failure. Mild UTI. Oral antibiotic for 5 days. Mild metabolic acidosis which could be related to his mild acute kidney failure. Patient also may have RTA. He takes high dose of Topamax. I recommended patient to reduce the dose of his Topamax and to monitor his acidosis. If he continues to have acidosis I would recommend the discontinuation of Topamax. This is to be arranged by your PCP. Long history of asthma for which patient sees pulmonology. Chest x-ray done here is negative. Patient is not wheezing this morning. Saturation 100% on room air Polypharmacy. I instructed patient to ask his PCP and other outpatient specialist to attempted to minimize and to simplify his medications regimen to reduce the risk of side effect and the drug?drug interaction Patient has multiple medical issues as listed above and others at that are not listed. Patient is feeling great. Asymptomatic at this time. Patient is readyphysically and psychologically to go home. Patient was cleared by cardiology [facility] and have an outpatient stress test. I do not have any clear or strong clinical justification to extend inpatient hospitalization. Patient however will require additional medical care as described above to be addressed in the outpatient setting Time Spent with Patient Time spent providing/coordinating discharge services (# min): 40 Diagnostic Studies Completed and Pending Studies Pending studies at discharge: 07/29/21 20:15 Urine Culture Routine 07/30/21 06:24 Complete Blood Count Auto Diff IN AM 07/31/21 05:00 Basic Metabolic Panel [CHEM] IN AM 08/01/21 05:00 Basic Metabolic Panel [CHEM] IN AM Preliminary micro results at discharge 07/29/21 20:15 Urine Culture - Pending Urine - Clean-Voided Midstream Labs on day of discharge: 07/30/21 06:24: PHA Creatinine Clear 85.39, Sodium 139, Potassium 3.7, Chloride 112, Carbon Dioxide 20.0 L, BUN 18, Creatinine 0.92, Est GFR ( Amer) > 60, Est GFR (Non-Af Amer) > 60, Glucose 102 H, Calcium 8.2, Triglycerides 86, Cholesterol 159, LDL Cholesterol, Calc 96, VLDL Cholesterol 17, HDL Cholesterol 46, Cholesterol/HDL Ratio 3.5 07/30/21 06:24: Corrected WBC 5.1, Uncorrected WBC Count 5.1, RBC 4.40, Hgb 9.7 L, Hct 30.7 L, MCV 69.8 L, MCH 22.1 L, MCHC 31.6 L, RDW 18.9 H, Plt Count 190, MPV 7.5, Nucleated RBC % (auto) 0.0 07/29/21 23:22: Troponin I High Sens 20 07/29/21 20:15: Urine Color Yellow, Urine Appearance Clear, Urine pH 5.5, Ur Specific Poneto 1.015, Urine Protein Negative, Urine Glucose (UA) Normal, Urine Ketones Trace H, Urine Occult Blood Negative, Urine Nitrite Negative, Urine Bilirubin Negative, Urine Urobilinogen Normal, Ur Leukocyte Esterase 2+ H, Urine RBC None seen, Urine WBC 10-19 H, Ur Squamous Epith Cells None seen, Urine Bacteria 2+ H, Hyaline Casts 0-8 07/29/21 17:53: Troponin I High Sens 27 H 07/29/21 13:04: D-Dimer Quant (PE/DVT) 250 H 07/29/21 11:49: B-Natriuretic Peptide 90.0 07/29/21 11:49: Troponin I High Sens 45 H 07/29/21 11:49: Magnesium 2.0 Exam Physical Exam Vital Signs: Temp Pulse Resp BP Pulse Ox 98.0 F 98 H 20 122/73 99 07/30/21 08:00 07/30/21 09:10 07/30/21 09:10 07/30/21 08:00 07/30/21 08:00 Narrative: CONST- alert, in bed, no acute distress HEAD- normocephalic and atraumatic EENT- sclera nonicteric and conjunctiva nonerythemic, moist oral mucosa, pharynx clear NECK- supple, no cervical lymphadenopathy CARDIAC- RRR no abnormal heart tones PULM- diminished without wheeze or rhonchi, O2 3 L, no accessory muscle use or cough noted, able to speak full sentence ABD- S/NT, NABS, round EXTREM- no edema BLE, calves nontender, pedal's palpable SKIN- W/D, good turgor MS- MAEx4 spontaneously with equal strength NEURO- A&Ox3, speech clear and tongue midline, equal facial symmetry PSYCH-mood and behavior appropriate, talkative Discharge Plan Discharge Plan Patient Disposition: Home Activity: No Activity Restriction Diet: Low-Fat and Low-Sodium Additional Instructions: You are scheduled for an outpatient LEXISCAN STRESS TEST at [facility] in the [facility] on 08/14/2021 at 7:30am- see instructions. Continue to check her potassium level as previously done prior to admission. You are taking multiple medications that could interact with each other and they can cause a side effects. Please ask your primary care doctor and other outpatient specialists to simplify and minimize your medications regimen to prevent development of side effect or drug?drug interactions Taking Celebrex at 400 mg twice a day is for time the recommended maximum dose. This may have caused your kidney function to decline. Please do not take more than 200 mg in a 24 hours. Topamax can cause you to have RTA (acid buildup in your system ) I reduced your Topamax dose. Your acid level may need to be watched closely in the outpatient setting by doing routine blood test ( called BMP ) to be arranged by your primary care doctor. If you continue to build up acid in your system, Topamax may need to be discontinued. I may not have addressed or treated all of your medical illnesses or the abnormal blood work or imaging studies during this hospitalization. Please ask your primary care provider to obtain [facility] records entirely to follow up on all of the abnormal physical, laboratory, and imaging findings that I have not addressed. Please return back to the emergency room or seek medical attention if your symptoms worsen or return. Discharging you from [facility] does not mean that your medical care ends here and now. You may still need additional monitoring, work up, investigation, and treatment plan to be handled from this point on by out patient providers including your primary care provider and specialists. For any medication question, please contact your retail pharmacist or your primary care provider. Thank you. Prescriptions: New doxycycline hyclate 100 mg tablet 100 mg PO BID 5 Days Qty: 10 RF: 0 Continued amitriptyline 75 mg tablet 50 mg PO QHS RF: 0 venlafaxine 150 mg capsule,extended release 24hr 150 mg PO BID RF: 0 spironolactone 25 mg tablet 25 mg PO DAILY RF: 0 verapamil 120 mg tablet 120 mg PO DAILY RF: 0 losartan 25 mg tablet 25 mg PO DAILY RF: 0 omeprazole 20 mg Capsule,Delayed Release(Dr/Ec) 20 mg PO BID RF: 0 fluticasone propionate 50 mcg/actuation spray,suspension 50 mcg INTRANASAL DAILY RF: 0 pregabalin 75 mg capsule 75 mg PO BID RF: 0 potassium chloride [Klor-Con M20] 20 mEq Tablet,Er Particles/Crystals 20 meq PO BID RF: 0 tamsulosin 0.4 mg capsule 0.8 mg PO QHS RF: 0 budesonide 0.5 mg/2 mL suspension for nebulization 0.5 mg inhalation BID RF: 0 alprazolam 0.25 mg tablet 0.25 mg PO BID PRN (Reason: Anxiety) RF: 0 Gamunex-C 20 gram/200 mL (10 %) solution RF: 0 Fasenra 30 mg/mL syringe SUBCUT RF: 0 Aimovig Autoinjector 140 mg/mL auto-injector SUBCUT RF: 0 hydrocodone-acetaminophen 5-325 mg tablet 1 tab PO TID PRN (Reason: Pain) RF: 0 aspirin 81 mg Tablet,Chewable 81 mg PO DAILY RF: 0 montelukast [Singulair] 10 mg Tablet 10 mg PO DAILY RF: 0 topiramate 200 mg tablet 200 mg PO HS RF: 0 levalbuterol HCl [Xopenex] 1.25 mg/3 mL Solution For Nebulization 1.25 mg INHALATION Q4H PRN (Reason: Dyspnea) RF: 0 sumatriptan succinate 6 mg/0.5 mL pen injector 6 mg SUBCUT DAILY PRN (Reason: Migraine Headache) RF: 0 levalbuterol tartrate [Xopenex HFA] 45 mcg/actuation Hfa Aerosol Inhaler 2 inh INHALATION Q4H PRN (Reason: Dyspnea) RF: 0 B12 Active 1,000 mcg Tablet,Chewable 1,000 mcg PO DAILY RF: 0 Trelegy Ellipta 200-62.5-25 mcg Blister With Device 1 inh INHALATION DAILY RF: 0 Changed celecoxib 200 mg capsule 200 mg PO DAILY Qty: 1 RF: 0 Discontinued rizatriptan 10 mg tablet 10 mg PO Q2H PRN (Reason: Headache) RF: 0 topiramate 100 mg tablet 100 mg PO BID RF: 0 Follow Up: Luz Park DO [Active Staff - D.O.] - 08/27/21 10:50 am Rachel Rayo MD [Primary Care Provider] - 08/05/21 1:30 pm (Follow-up with your Primary Care Provider, call office to reschedule if needed. ) Documented By: Ketan Heard MD 07/30/21 0936 Signed By: <Electronically signed by Ketan Heard MD> 07/30/21 0945 [facility] Work Phone: [phone] History and physical note Author Ketan Heard [facility] July 29, 2021 12:36pm Note Date/Time July 29, 2021 12: 36pm [facility] [address] [place] [address] Hospitalist H&P Signed Patient: Velia Bagley MR#: [id number] : 1960 Acct:[id number] Age/Sex: 61 / M Adm Date: 2 Loc: Room: [address] [place] [address] Type : ADM IN Attending Dr: Ketan Heard MD Copies to: MD Ketan Garcia MD~ HPI DATE OF EXAMINATION: 07/29/21 CHIEF COMPLAINT: cough, shortness of breath HISTORY OF PRESENT ILLNESS: 61-year-old male PMH COPD/asthma on chronic O2 therapy, HTN, depression, BPH, HLD, TIA x2, neuropathy, chronic back pain, GERD, migraines, Covid long-haul to [place] emergency department overnight 07/29 with complaints of increasing shortness of breath croupy symptoms starting on Thursday. Had associated decreased appetite and mild nausea. He was given methylprednisone 125 mg, DuoNeb, and potassium 40 mEq as well as 1 L IV fluid in the emergency departmentwith improvement in symptoms. He was noted to have elevated troponin and transferred to [facility] for further cardiology evaluation. Patient seen and examined. He is wearing oxygen but able to speak full sentences, no cough noted during exam/interview. No nasal congestion or sore throat. Denies chest pain or palpitations. No abdominal pain or indigestion, constipation or diarrhea, vomiting. No dysuria or retention. No headache currently but does have chronic history of migraines, no dizziness. No fevers or chills. PMFSH Vaccinated for COVID-19?: Yes Medical History (Updated 07/29/21 @ 12:35 by Ketan Heard MD) Anxiety Asthma Chronic back pain COPD (chronic obstructive pulmonary disease) COVID COVID-19 long hauler CVA (cerebral vascular accident) Depression Hypertension Immunocompromised Migraines On home oxygen therapy Peripheral neuropathy Surgical History (Updated 07/29/21 @ 10:28 by Leonor Bryant, [facility]) H/O knee surgery (~1973) History of back surgery (~2015) L4-5 laminectomy History of right hip replacement (~2019) Social History Smoking Status: Never smoker Meds Medications and Allergies Allergies Sulfa (Sulfonamide Antibiotics) Allergy (Mild, Verified 07/29/21 10:17) Unknown Reaction avocado Allergy (Verified 07/29/21 10:08) Anaphylaxis baclofen Allergy (Verified 07/29/21 10:08) Dizziness ciprofloxacin [From Cipro] Allergy (Verified 07/29/21 10:08) Rash indomethacin [From Indocin] Adverse Reaction (Verified 07/29/21 10:08) Hypotension Penicillins Adverse Reaction (Verified 07/29/21 10:08) Rash propranolol [From Inderal LA] Adverse Reaction (Verified 07/29/21 10:08) Hypotension Home Medications alprazolam 0.25 mg tablet 0.25 mg PO BID PRN 07/29/21 [History Confirmed 07/29/21] amitriptyline 75 mg tablet 50 mg PO QHS 07/29/21 [History Confirmed 07/29/21] aspirin 81 mg chewable tablet 81 mg PO DAILY 07/29/21 [History Confirmed 07/29/21] benralizumab 30 mg/mL subcutaneous syringe (Fasenra) mg SUBCUT 07/29/21 [History] budesonide 0.5 mg/2 mL suspension for nebulization 0.5 mg INHALATION BID 07/29/21 [History Confirmed 07/29/21] celecoxib 200 mg capsule 400 mg PO BID 07/29/21 [History Confirmed 07/29/21] erenumab-aooe 140 mg/mL subcutaneous auto-injector (Aimovig Autoinjector) mg SUBCUT 07/29/21 [History] fluticasone fur. 200 mcg-umeclid 62.5 mcg-vilant 25 mcg inhalat.powder (Trelegy Ellipta) 1 inh INHALATION DAILY 07/29/21 [History Confirmed 07/29/21] fluticasone propionate 50 mcg/actuation nasal spray,suspension 50 mcg INTRANASALDAILY 07/29/21 [History Confirmed 07/29/21] hydrocodone 5 mg-acetaminophen 325 mg tablet 1 tab PO TID PRN 07/29/21 [History Confirmed 07/29/21] immune glob G 20 gram/200 mL(10%)-gly-IgA ave 46 mcg/mL injection soln (Gamunex- C) ml 07/29/21 [History] levalbuterol HCl 1.25 mg/3 mL solution for nebulization (Xopenex) 1.25 mg INHALATION Q4H PRN 07/29/21 [History Confirmed 07/29/21] levalbuterol tartrate 45 mcg/actuation aerosol inhaler (Xopenex HFA) 2 inh INHALATION Q4H PRN 07/29/21 [History Confirmed 07/29/21] losartan 25 mg tablet 25 mg PO DAILY 07/29/21 [History Confirmed 07/29/21] mecobalamin (vitamin B12) 1,000 mcg chewable tablet (B12 Active) 1,000 mcg PO DAILY 07/29/21 [History Confirmed 07/29/21] montelukast 10 mg tablet (Singulair) 10 mg PO DAILY 07/29/21 [History Confirmed 07/29/21] omeprazole 20 mg capsule,delayed release 20 mg PO BID 07/29/21 [History Confirmed 07/29/21] potassium chloride 20 mEq tablet,extended release(part/cryst) (Klor-Con M) 20 meq PO BID 07/29/21 [History Confirmed 07/29/21] pregabalin 75 mg capsule 75 mg PO BID 07/29/21 [History Confirmed 07/29/21] rizatriptan 10 mg tablet 10 mg PO Q2H PRN 07/29/21 [History Confirmed 07/29/21] spironolactone 25 mg tablet 25 mg PO DAILY 07/29/21 [History Confirmed 07/29/21] sumatriptan succinate 6 mg/0.5 mL subcutaneous pen injector 6 mg SUBCUT DAILY PRN 07/29/21 [History Confirmed 07/29/21] tamsulosin 0.4 mg capsule 0.8 mg PO QHS 07/29/21 [History Confirmed 07/29/21] topiramate 100 mg tablet 100 mg PO BID 07/29/21 [History Confirmed 07/29/21] topiramate 200 mg tablet 200 mg PO HS 07/29/21 [History Confirmed 07/29/21] venlafaxine 150 mg capsule,extended release 24 hr 150 mg PO BID 07/29/21 [History Confirmed 07/29/21] verapamil 120 mg tablet 120 mg PO DAILY 07/29/21 [History Confirmed 07/29/21] Exam Physical Exam Vital Signs: Temp Pulse Resp BP Pulse Ox 98.1 F 83 18 134/88 98 07/29/21 09:40 07/29/21 11:32 07/29/21 11:32 07/29/21 11:32 07/29/21 11:32 A&P - Hospitalist Assessment/Plan (1) Elevated troponin: (2) COPD exacerbation: (3) Hypokalemia: (4) KRISTA (acute kidney injury): (5) Shortness of breath: Plan Elevated troponin Hx hypertension -Serial troponin and repeat EKG -Cardiology consult -Check echocardiogram, lipid profile -Patient asymptomatic without chest pain only reported symptom was dyspnea with associated hypoxia that could be contributory -Continue home losartan and verapamil, spironolactone on hold, -Resume aspirin therapy, avoiding beta-erika with COPD questionable exacerbation -BP is elevated on admit patient indicates he has missed his dosing of antihypertensives the past couple of days and spironolactone has been on hold with possible dehydration Patient reported having worsening shortness of breath and hypoxemia. This couldbe due to to COPD however I cannot exclude the possibility of pulmonary embolism. I will order D-dimer and if it is positive we will proceed with a VQ scan. No CT at this time given his KRISTA. Chronic hypokalemia with hypertension. Patient is on potassium and spironolactone. 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 His creatinine is 1.6. Isuspect that this is acute kidney failure. Patient is on Celebrex 400 twice a day she is higher than the recommended dose. Patient is on angiotensin receptorblocker. Hold both medications Gentle IV fluid infusion. Requested UA. Available CTA. Proceed with the VQ scan if D-dimer is positive. COPD Chronic O2 use nocturnally Covid long-hauler with exertional dyspnea/ weakness/ brain fog -Received steroid in [place] emergency department with improvement in symptoms,not currently wheezing will hold off continued steroid as patient reports associated tachycardia -Xopenex as from home, intolerant of albuterol with tachycardia previously. Continue budesonide, montelukast, fluticasone, Trelegy -Incentive spirometry -Follows with Dr. Magana pulmonary at as outpatient Chronic conditions 1. Migraines?amitriptyline, Celebrex, sumatriptan, Topamax, venlafaxine 2. BPH?tamsulosin 3. Chronic back/ neck pain with neuropathy?pregabalin, as needed Wentworth 4. GERD?omeprazole CODE STATUS?full as discussed with patient DVT PPx?enoxaparin Documented By: Ketan Heard MD 07/29/21 1235 Signed By: <Electronically signed by Ketan Heard MD> 07/29/21 1236 [facility] Work Phone: [phone] History and physical note Author Ketan Heard [facility] July 29, 2021 12:35pm Note Date/Time July 29, 2021 10: 21am [facility] [address] [place] [address] Hospitalist H&P Signed Patient: Velia Bagley MR#: [id number] : 1960 Acct:[id number] Age/Sex: 61 / M Adm Date: 2 Loc: Room: [address] [place] [address] Type : ADM IN Attending Dr: Ketan Heard MD Copies to: Leonor Bryant, ANP- MD Ketan Garcia MD~ HPI DATE OF EXAMINATION: 07/29/21 CHIEF COMPLAINT: cough, shortness of breath HISTORY OF PRESENT ILLNESS: 61-year-old male PMH COPD/asthma on chronic O2 therapy, HTN, depression, BPH, HLD, TIA x2, neuropathy, chronic back pain, GERD, migraines, Covid long-haul to [place] emergency department overnight 07/29 with complaints of increasing shortness of breath croupy symptoms starting on Thursday. Had associated decreased appetite and mild nausea. He was given methylprednisone 125 mg, DuoNeb, and potassium 40 mEq as well as 1 L IV fluid in the emergency departmentwith improvement in symptoms. He was noted to have elevated troponin and transferred to [facility] for further cardiology evaluation. Patient seen and examined. He is wearing oxygen but able to speak full sentences, no cough noted during exam/interview. No nasal congestion or sore throat. Denies chest pain or palpitations. No abdominal pain or indigestion, constipation or diarrhea, vomiting. No dysuria or retention. No headache currently but does have chronic history of migraines, no dizziness. No fevers or chills. Review of Systems Review of Systems All other systems reviewed & are negative unless noted below or in HPI [facility] Attestation Statement: The following information was validated with the patient. Vaccinated for COVID-19?: Yes Medical History (Updated 07/29/21 @ 12:04 by Leonor Bryant, NICOLE-BC) Anxiety Asthma Chronic back pain COPD (chronic obstructive pulmonary disease) COVID COVID-19 long hauler CVA (cerebral vascular accident) Depression Hypertension Immunocompromised Migraines On home oxygen therapy Peripheral neuropathy Surgical History (Updated 07/29/21 @ 10:28 by Leonor Bryant, NICOLE-BC) H/O knee surgery (~1973) History of back surgery (~2015) L4-5 laminectomy History of right hip replacement (~2019) Social History Smoking Status: Never smoker Meds Medications and Allergies Allergies Sulfa (Sulfonamide Antibiotics) Allergy (Mild, Verified 07/29/21 10:17) Unknown Reaction avocado Allergy (Verified 07/29/21 10:08) Anaphylaxis baclofen Allergy (Verified 07/29/21 10:08) Dizziness ciprofloxacin [From Cipro] Allergy (Verified 07/29/21 10:08) Rash indomethacin [From Indocin] Adverse Reaction (Verified 07/29/21 10:08) Hypotension Penicillins Adverse Reaction (Verified 07/29/21 10:08) Rash propranolol [From Inderal LA] Adverse Reaction (Verified 07/29/21 10:08) Hypotension Home Medications alprazolam 0.25 mg tablet 0.25 mg PO BID PRN 07/29/21 [History Confirmed 07/29/21] amitriptyline 75 mg tablet 50 mg PO QHS 07/29/21 [History Confirmed 07/29/21] aspirin 81 mg chewable tablet 81 mg PO DAILY 07/29/21 [History Confirmed 07/29/21] benralizumab 30 mg/mL subcutaneous syringe (Fasenra) mg SUBCUT 07/29/21 [History] budesonide 0.5 mg/2 mL suspension for nebulization 0.5 mg INHALATION BID 07/29/21 [History Confirmed 07/29/21] celecoxib 200 mg capsule 400 mg PO BID 07/29/21 [History Confirmed 07/29/21] erenumab-aooe 140 mg/mL subcutaneous auto-injector (Aimovig Autoinjector) mg SUBCUT 07/29/21 [History] fluticasone fur. 200 mcg-umeclid 62.5 mcg-vilant 25 mcg inhalat.powder (Trelegy Ellipta) 1 inh INHALATION DAILY 07/29/21 [History Confirmed 07/29/21] fluticasone propionate 50 mcg/actuation nasal spray,suspension 50 mcg INTRANASALDAILY 07/29/21 [History Confirmed 07/29/21] hydrocodone 5 mg-acetaminophen 325 mg tablet 1 tab PO TID PRN 07/29/21 [History Confirmed 07/29/21] immune glob G 20 gram/200 mL(10%)-gly-IgA ave 46 mcg/mL injection soln (Gamunex- C) ml 07/29/21 [History] levalbuterol HCl 1.25 mg/3 mL solution for nebulization (Xopenex) 1.25 mg INHALATION Q4H PRN 07/29/21 [History Confirmed 07/29/21] levalbuterol tartrate 45 mcg/actuation aerosol inhaler (Xopenex HFA) 2 inh INHALATION Q4H PRN 07/29/21 [History Confirmed 07/29/21] losartan 25 mg tablet 25 mg PO DAILY 07/29/21 [History Confirmed 07/29/21] mecobalamin (vitamin B12) 1,000 mcg chewable tablet (B12 Active) 1,000 mcg PO DAILY 07/29/21 [History Confirmed 07/29/21] montelukast 10 mg tablet (Singulair) 10 mg PO DAILY 07/29/21 [History Confirmed 07/29/21] omeprazole 20 mg capsule,delayed release 20 mg PO BID 07/29/21 [History Confirmed 07/29/21] potassium chloride 20 mEq tablet,extended release(part/cryst) (Klor-Con M) 20 meq PO BID 07/29/21 [History Confirmed 07/29/21] pregabalin 75 mg capsule 75 mg PO BID 07/29/21 [History Confirmed 07/29/21] rizatriptan 10 mg tablet 10 mg PO Q2H PRN 07/29/21 [History Confirmed 07/29/21] spironolactone 25 mg tablet 25 mg PO DAILY 07/29/21 [History Confirmed 07/29/21] sumatriptan succinate 6 mg/0.5 mL subcutaneous pen injector 6 mg SUBCUT DAILY PRN 07/29/21 [History Confirmed 07/29/21] tamsulosin 0.4 mg capsule 0.8 mg PO QHS 07/29/21 [History Confirmed 07/29/21] topiramate 100 mg tablet 100 mg PO BID 07/29/21 [History Confirmed 07/29/21] topiramate 200 mg tablet 200 mg PO HS 07/29/21 [History Confirmed 07/29/21] venlafaxine 150 mg capsule,extended release 24 hr 150 mg PO BID 07/29/21 [History Confirmed 07/29/21] verapamil 120 mg tablet 120 mg PO DAILY 07/29/21 [History Confirmed 07/29/21] Exam Physical Exam Vital Signs: Temp Pulse Resp BP Pulse Ox 98.1 F 79 18 156/95 H 98 07/29/21 09:40 07/29/21 09:40 07/29/21 09:40 07/29/21 09:40 07/29/21 09:40 Narrative: CONST- alert, in bed, no acute distress HEAD- normocephalic and atraumatic EENT- sclera nonicteric and conjunctiva nonerythemic, moist oral mucosa, pharynxclear NECK- supple, no cervical lymphadenopathy CARDIAC- RRR no abnormal heart tones PULM- diminished without wheeze or rhonchi, O2 3 L, no accessory muscle use or cough noted, able to speak full sentence ABD- S/NT, NABS, round EXTREM- no edema BLE, calves nontender, pedal's palpable SKIN- W/D, good turgor MS- MAEx4 spontaneously with equal strength NEURO- A&Ox3, speech clear and tongue midline, equal facial symmetry PSYCH-mood and behavior appropriate, talkative PHYLLIS Risk Score PHYLLIS Risk Score Predictor Presentation: Increased Cardiac Marker Score Risk Score (0-7): 1 Results Additional Results Results Comments: Labs from [place] emergency department reviewed BMP sodium 135, potassium 2.9, chloride 101, CO2 19.4, glucose 188, creatinine 1.64, BUN 24, calcium 8.7 BNP 244 CBC WBCs 9.0, hemoglobin 12.9, hematocrit 32.8, platelets 325, MCV 73, MCH 22, MCHC 30.1, RDW 18.5 CK 45, troponin 63.7 at 0024, repeat troponin 145 at 0325 Lactate 3.4 Pulmonary contacted CXR cardiomegaly with prominence of pulmonary vascularity, air-filled loops of bowel on the right hemidiaphragm EKG sinus tachycardia HR 134 A&P - Hospitalist Assessment/Plan (1) Elevated troponin: (2) COPD exacerbation: (3) Hypokalemia: Plan Elevated troponin Hx hypertension -Serial troponin and repeat EKG -Cardiology consult -Check echocardiogram, lipid profile -Patient asymptomatic without chest pain only reported symptom was dyspnea with associated hypoxia that could be contributory -Continue home losartan and verapamil, spironolactone on hold, -Resume aspirin therapy, avoiding beta-erika with COPD questionable exacerbation -BP is elevated on admit patient indicates he has missed his dosing of antihypertensives the past couple of days and spironolactone has been on hold with possible dehydration Patient reported having worsening shortness of breath and hypoxemia. This couldbe due to to COPD however I cannot exclude the possibility of pulmonary embolism. I will order D-dimer and if it is positive we will proceed with a VQ scan. No CT at this time given his KRISTA. Chronic hypokalemia with hypertension. Patient is on potassium and spironolactone. 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 His creatinine is 1.6. Isuspect that this is acute kidney failure. Patient is on Celebrex 400 twice a day she is higher than the recommended dose. Patient is on angiotensin receptorblocker. Hold both medications Gentle IV fluid infusion. Requested UA. Available CTA. Proceed with the VQ scan if D-dimer is positive. COPD Chronic O2 use nocturnally Trinidad phillips-ramona with exertional dyspnea/ weakness/ brain fog -Received steroid in [place] emergency department with improvement in symptoms,not currently wheezing will hold off continued steroid as patient reports associated tachycardia -Xopenex as from home, intolerant of albuterol with tachycardia previously. Continue budesonide, montelukast, fluticasone, Trelegy -Incentive spirometry -Follows with Dr. Magana pulmonary at as outpatient Chronic conditions 1. Migraines?amitriptyline, Celebrex, sumatriptan, Topamax, venlafaxine 2. BPH?tamsulosin 3. Chronic back/ neck pain with neuropathy?pregabalin, as needed Wentworth 4. GERD?omeprazole CODE STATUS?full as discussed with patient DVT PPx?enoxaparin Documented By: JUAN Kelly 2 1013 Signed By: <Electronically signed by NICOLE-ZABRINA Bryant> 07/29/21 1205 <Electronically signed by Ketan Heard MD> 07/29/21 1235 [facility] Work Phone: [phone] 130-158802-15-2022 History of Present illness Narrative* Since last visit, 06/18/2021, patient was hospitalized 2 weeks ago with elevated HR in the 140s and dehydration. He uses oxygen at night and saturation decreased to 82. He is not on prednisone currently and reports he feels awful. He is SOB, has balance problems and does not want to get out of bed because of fear he will fall. He felt dizzy prior to arriving here, per his . He states he may have risen too fast but does feel dizzy when ambulating. * He is not participating in PT currently and sees Dr. Magana first of September 2021. He reports being ill for about 6 weeks. * His breathing worsens around the time of his infusions and sometimes before his Fasenra is due. Last infusion was rough and he was in bed 4-5 days. He prefers IV to subcu. Typically his asthma worsens before his infusions. He is on his 6th IV infusion and next infusion is 08/19/2021, per shipping people. * Dr. Rayo is on vacation. He is scheduled for a nuclear stress test tomorrow. JG[facility] [employer] Work Phone: [phone] 515-664702-15-2022 History of Present illness Narrative* Since last visit, 06/18/2021, patient was hospitalized 2 weeks ago with elevated HR in the 140s and dehydration. He uses oxygen at night and saturation decreased to 82. He is not on prednisone currently and reports he feels awful. He is SOB, has balance problems and does not want to get out of bed because of fear he will fall. He felt dizzy prior to arriving here, per his . He states he may have risen too fast but does feel dizzy when ambulating. * He is not participating in PT currently and sees Dr. Magana first of September 2021. He reports being ill for about 6 weeks. * His breathing worsens around the time of his infusions and sometimes before his Fasenra is due. Last infusion was rough and he was in bed 4-5 days. He prefers IV to subcu. Typically his asthma worsens before his infusions. He is on his 6th IV infusion and next infusion is 08/19/2021, per shipping people. * Dr. Rayo is on vacation. He is scheduled for a nuclear stress test tomorrow. AM-[facility] Work Phone: [phone] 124-921802-01-2022 History of Present illness Narrative* Since last visit, 06/04/2021, patient saw Dr. Magana who is trying to wean him off the prednisone.He starts pulmonary rehab at [place] next 06/25/2021. * He reports his depression has worsened this last week after losing his daughter 08/25/2020. He is reaching out to a local Hospice to find a support group for parents who have lost children. He also admits to stress with his son. 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 Rayo recently increased his Effexor to 150 mg BID. He is talking to a college friend, who is apastor at his [employer], who counsels him, but he does not attend organized, formal counseling becausehe has limited choices with his insurance. * His infusions are going well with no issues or SE after. With his last infusion, he was 4 days lateand developed severe fatigue and apathy. His next infusion is due 06/27/2021. * he had cloudy urine and back pain and on Thursday went to [facility] for cloudy urine and backpain. A rapid culture was positive for Strep, per patient, and he was prescribed azithromycin 250 for 5 days, which he is on currently. He notes his urine is still cloudy. TG-Qdyfvagwvw-Pyrwdjev 2100 DO Work Phone: [phone] History of Present illness Narrative* The patient states that he has had intermittent dizziness for the last 2 to 3 months. He states that he has about 2-3 episodes of dizziness per day. They can last anywhere from minutes to the entire day. The patient states that he has had several falls and feels that his walking is unsteady. The patient does feel that he is going to pass out but has not had any losses of consciousness. * The patient had a cardiac cath tech for 2 weeks in 2019 that was normal. * The patient did have an MRI of the brain that was essentially normal. * The patient had a VNG done but he could not tolerate part of the test. All the parts of the test that were completed that was normal. * The patient is still having headaches and is compliant with his Aimovig and getting Botox every 13 weeks. The patient also takes Vicodin as needed for severe headaches. He did get a Toradol shot yesterday for severe headache. * The patient had COVID last July and states that he is still having significant brain fog. He is compliant with his Topamax and is taking 100 mg in the morning, 200 in the evening and 200 at bedtime. * The patient is currently off of CPAP and on supplemental nocturnal oxygen. The patient is having difficulty getting a place for pulmonary rehab. PM-Bhqjxdagy-Sqtfd [address] Work Phone: [phone] History of Present illness Narrative* 61 year M with pmhx including s/p covid, asthma with COPD, chronic migraine with aura on hydrocodone -acetaminophen ( takes it daily or every other day), depression, spondylosis, ANN on 2L O2 at night, stroke in 2018 and has left side weakness. * Patient was diagnosed in 2011 and was lost to follow up. * He recently had a sleep study in 2019 which showed moderate sleep apnea and was started on pap therapy but only used it for a few weeks as he feels that he cannot tolerate sleeping with the mask on his face, he feels that his mask frightens him as he feels that he is in the ICU. He does not wishto use pap therapy. He does still have his pap machine. * SLEEP - WAKE SCHEDULE: watches TV and has a timer. * Weekdays/Work/School Days: usual bed time: 10pm , usual wake time: 3:30am , falls asleep at about: 10:05pm and has to drive son to work in am. * Weekends/Off Work/Vacation Days: usual bed time: 10pm, usual wake time: 9-10am and falls asleep at about: 10:05pm . * Class/School/Work Schedule: does not work. * Naps:. weekdays 4am-9am; 3x per week takes afternoon naps. * SLEEP DURATION: 8-10hrs. * SLEEP INITIATION: No problems going to sleep. * SLEEP MAINTENANCE: Denies problematic awakenings. * BREATHING DURING SLEEP: Snoring during sleep. Witnessed apneas. No gasping/choking for air. Nasal congestion during sleep. flonase prn . No mouth breathing during sleep. No nocturnal gastroesophagealreflux. No nocturnal cough. * Sleep Positioning: side and reclined. * MORNING SYMPTOMS: Morning headaches. Morning dry mouth. No morning sore throat. Unrefreshing sleep.Patient denies stimulant use. * DAYTIME: Daytime sleepiness. Fatigue. No drowsy driving. No history of car accidents due to drowsy driving. No near-miss car accidents due to drowsy driving. * CAFFEINE USAGE: No caffeine usage. * HYPERSOMNIA: No sleep paralysis. No cataplexy. No sleep related hallucinations. * LEGS AT NIGHT: No urge to move legs at night. Symptoms are not better with movement. cramping in thighs and calfs and aching better with finding a comfortable position. * MOVEMENTS IN SLEEP: Bruxism (teeth grinding). no treatment . * PARASOMNIA: No sleeptalking. No sleepwalking. Does not act out of dream. Nightmares sometimes . [facility] [id number] DO Work Phone: [phone] History of Present illness Narrative* The patient is a 62-year-old with multiple comorbidities who had COVID pneumonia about a year ago. His recent CT scan showed stability with some faint groundglass changes and parenchymal scarring localized. There was no diffuse pulmonary fibrosis. He is on nebulized budesonide and he appears so farto be tolerating the tapering of the prednisone. He continues on Fasenra along with Trelegy inhaler. His lungs are clear to auscultation. He continues on the oxygen at night and has not been wearing of late because his daughter's cats 8 through the tubing. Unfortunately he will not get through the cats. * When seen on September 16, 2021 the patient was hospitalized for bradycardia no specific cardiac issue was found. He continued on the Fasenra and ran out of his Trelegy over the last several weeks. He alsoran out of his budesonide nebulization twice a day. He has not required any rescue inhalers of lateand he has no coughing or congestion. He has lost a significant amount of weight and currently is off the prednisone. He has been off prednisone in years. He continued to deal with behavioral health issues and arrangements have been made for him to see different providers. He continued to have difficulties after his daughter's . He also was going to see sleep medicine for the potential pacemaker insertion. He was going to continue his nebulized desonide and to be maintained on Xopenex as needed and Trelegy. I wanted to avoid oral corticosteroids. In addition he continues on IVIG therapy and Dr. Brown was considering using Dupixent, nucala or Tezspire . He has no other pulse oximetry from December 05, 2021 follow-up adequate saturation was achieved at 2 L/min. * When seen on December 16, 2021 has not required any prednisone and he continues on Trelegy. He also was on Fasenra and was using his rescue inhaler perhaps once or twice a day. He has no coughing or congestion. He has recovered from a viral illness and was on IVIG. He seemed to be doing well at that point in time and his last CBC from December 06, 2021 revealed no eosinophils. He was not having much breakthrough with respect to his hyperreactive airways. * The patient reports all last week he has had increasing coughing. He had temperatures up to 102 degrees. His fever is down to present time. His COVID testing was negative. The coughing continues. He had some wheezing at night. He also has been noted to have an iron deficiency anemia and is being cruzito luated for that. He is going to have EGD and colonoscopy. He has been receiving iron therapy. He continues on the Fasenra and IVIG replacement. He is felt to have an asthma flare with a negative x-ray and was placed on some prednisone. Several weeks ago he had increasing congestion and sputum cultures grew out staph aureus and Strep Galactiae and apparently was placed on Levaquin per Dr. Brown. The patient saw Dr. Brown yesterday and continues on his Fasenra administration. He receives his immunoglobulin replacement -Pulmonary Medicine-[facility] [address] [place] Work Phone: 1([phone]) 367-967311-29-2021 History of Present illness Narrative* He is accompanied by his son, Carlos, who resides with him. * Since last visit, 04/01/2021, patient saw Dr. Magana 05/07/2021 and told patient interstitial lungdisease likely due to COVID. He wants him to have a high resolution CT scan of chest, scheduled 05/23/2021. He is on prednisone 20 mg and prescribed nebulized budesonide BID pending our concurrence. He will be starting pulmonary rehab also. * He states he is miserable, fatigued, low-grade temp, chills and has persistent dry cough with no expectoration. He has sore throat mid day to where he does not want to swallow due to dry mouth. Waterhelps minimally. He is drinking Ensure for one meal though thinks he should be drinking it twice. He endorses brain fog, memory loss and word-finding difficulty. He gets his Fasenra here. * He has had 2 infusions and slept through the first one but was awake during the second. He takes Tylenol prior and denies post-infusion headache. He drinks during the infusion. Next infusion is due 05/27/2021 but [employer] has him getting it 05/21/2021. * He is awaiting consultation results from Sleep Medicine regarding Inspire therapy. He wears oxygen at night pending further therapy for his sleep apnea. * He has a tilt table test scheduled 05/15/2021. AQ-Qeqnszzamt-Vntpyhfq 2100 DO Work Phone: 1(221) 142-151610-21-2021 History of Present illness Narrative* Decrease of topiramate by 100mg per day has helped with cognitive fog but endorses still has cognitive fog with his post COVID symptoms. * Resident Botox 02-21-21 * Very helpful to decrease intensity and frequency of migraine headache. Decreased by 50% * Currently experiencing 2-3 migraine per week vs. 4-5 per week before Botox. * Migraines not lasting multiple days. * Treating migraines with Rizatriptan and Sumatriptan injections. Lies down in dark room. * Brings migraine pain down to small buzz * Sometimes will try OTC first. * Migraine occurs right sided front * Associated nausea, light and noise sensitivity. * Triggers are bright lights, loud sounds, strong smells, weather change, stress, lack of sleep. * Daily 24/7 headache component as well. Pain ranges 2-3/10. Also occurs right frontal. Sometimes right side of head. * No associated symptoms * Continue monthly Aimovig and verapamil for prevention. * Patient had 15 headache days a month or more, 8 meeting migraine criteria. They had tried and failed 3 preventative and 3 abortives. Presently their headaches are well controlled because of Botox Therapy. It has reduced the headaches by 50%. * Endorses trouble falling asleep and staying asleep. Amitriptylline works for 2 hours. * Anxiety and depression not under good control. Seeing a licensed psychologist director for counseling currently. Trying to get in with counselor at Hospice for grief counseling. recently increased effexor to 150 bid. * Sees pain management for back pain. Vicodin through pain management. 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 Denies headaches made fatigued. (had benedryl before and after for itching) * . TI-Ezxgbrcpk-Kqwjnw 170 DO Work Phone: [phone] History of Present illness Narrative* The patient is a 62-year-old with multiple comorbidities who had COVID pneumonia about a year ago. His recent CT scan showed stability with some faint groundglass changes and parenchymal scarring localized. There was no diffuse pulmonary fibrosis. He is on nebulized budesonide and he appears so farto be tolerating the tapering of the prednisone. He continues on Fasenra along with Trelegy inhaler. His lungs are clear to auscultation. He continues on the oxygen at night and has not been wearing of late because his daughter's cats 8 through the tubing. Unfortunately he will not get through the cats. * When seen on September 16, 2021 the patient was hospitalized for bradycardia no specific cardiac issue was found. He continued on the Fasenra and ran out of his Trelegy over the last several weeks. He alsoran out of his budesonide nebulization twice a day. He has not required any rescue inhalers of lateand he has no coughing or congestion. He has lost a significant amount of weight and currently is off the prednisone. He has been off prednisone in years. He continued to deal with behavioral health issues and arrangements have been made for him to see different providers. He continued to have difficulties after his daughter's . He also was going to see sleep medicine for the potential pacemaker insertion. He was going to continue his nebulized desonide and to be maintained on Xopenex as needed and Trelegy. I wanted to avoid oral corticosteroids. In addition he continues on IVIG therapy and Dr. Brown was considering using Dupixent, nucala or Tezspire . He has no other pulse oximetry from December 05, 2021 follow-up adequate saturation was achieved at 2 L/min. * When seen on December 16, 2021 has not required any prednisone and he continues on Trelegy. He also was on Fasenra and was using his rescue inhaler perhaps once or twice a day. He has no coughing or congestion. He has recovered from a viral illness and was on IVIG. He seemed to be doing well at that point in time and his last CBC from December 06, 2021 revealed no eosinophils. He was not having much breakthrough with respect to his hyperreactive airways. * The patient reports all last week he has had increasing coughing. He had temperatures up to 102 degrees. His fever is down to present time. His COVID testing was negative. The coughing continues. He had some wheezing at night. He also has been noted to have an iron deficiency anemia and is being cruzito luated for that. He is going to have EGD and colonoscopy. He has been receiving iron therapy. He continues on the Fasenra and IVIG replacement. MP-Pulmonary Medicine-[facility] [address] [place] Work Phone: [phone] 267-936510-01-2021 History of Present illness Narrative* Mr. VELIA BAGLEY, age 61 years, was seen for an audiologic evaluation due to concerns for vertigo/dizziness/imbalance. * The patient was kindly referred by CARSON Gold with neurology as well as Dr. Rich Magana. * Reported a long standing history of severe migraines. * Stated around February of 2021 he experienced significant dizziness with vertigo and lose of balance. Stated he will experience seconds of true vertigo, however, he also has a general feeling of beingdizzy and off balance. He reported a significant fall over a year ago, where he blacked out and requ ired a hip replacement. Stated he currently utilizes a cane while walking, however, he will feel slightly nervous especially at home with his cats near his feet. Feels when he goes from a sitting to standing position he will feel very wobbly or even while lying down. * Experienced Covid-19 in the spring and mentioned since that time he feels very exhausted and has problems with his breathing. * Reported an established hearing loss and mentioned he purchased hearing aids, however, does not currently wear them. Feels like the hearing aids have too much feedback and he has not worn or other amplifiers in a while. Previous hearing testing was performed on 03/01/18 and indicated a mild gradually sloping to moderate sensorineural hearing loss in each ear. Feels his hearing may be gradually decreasing, however, denied any sudden hearing losses. * History of bilateral non-pulsatile tinnitus. Reported occasionally the tinnitus will create some difficulty sleeping, however, he is typically not bothered by his tinnitus. * Currently feels a sensation of cerumen in his ears, however, denied any specific pain or pressure. * History of a mild strong in May of 2017 as well as neuropathy. 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 * Denied any ear surgery, recent ear/sinus infections, heart/kidney problems, or ear drainage.. * Patient's preferred language: Haitian * Preferred language of the parent, legal guardian or surrogate decision-maker of this minor or incapacitated patient: Haitian * No overt signs of domestic violence/neglect/abuse. * Pain not interfering with optimal level of function or ability to assess and/or treat. * Pain Scale rank: 0/10 * Pain Scale used: Numeric * No referral made to primary care provider (PCP). * Factors/Barriers influencing patient's ability to complete assessment or learn: none. * Person taught: patient. * Readiness to learn: no barriers. * Results of Teaching/Counseling: verbalize recall / understanding and teaching complete. Audiology-[facility] [address] Work Phone: [phone] History of Present illness Narrative* The patient is a 61-year-old with multiple comorbidities who had COVID pneumonia about a year ago. His recent CT scan showed stability with some faint groundglass changes and parenchymal scarring localized. There was no diffuse pulmonary fibrosis. He is on nebulized budesonide and he appears so farto be tolerating the tapering of the prednisone. He continues on Fasenra along with Trelegy inhaler. His lungs are clear to auscultation. He continues on the oxygen at night and has not been wearing of late because his daughter's cats 8 through the tubing. Unfortunately he will not get through the cats. * When seen on September 16, 2021 the patient was hospitalized for bradycardia no specific cardiac issue was found. He continued on the Fasenra and ran out of his Trelegy over the last several weeks. He alsoran out of his budesonide nebulization twice a day. He has not required any rescue inhalers of lateand he has no coughing or congestion. He has lost a significant amount of weight and currently is off the prednisone. He has been off prednisone in years. He continued to deal with behavioral health issues and arrangements have been made for him to see different providers. He continued to have difficulties after his daughter's . He also was going to see sleep medicine for the potential pacemaker insertion. He was going to continue his nebulized desonide and to be maintained on Xopenex as needed and Trelegy. I wanted to avoid oral corticosteroids. In addition he continues on IVIG therapy and Dr. Brown was considering using Dupixent, nucala or Tezspire . He has no other pulse oximetry from December 05, 2021 follow-up adequate saturation was achieved at 2 L/min. * The patient has not required any prednisone of late. He continues on the Trelegy inhaler. He also is on the Fasenra and uses his rescue inhaler perhaps once or maybe twice a day. He has no coughing or congestion. He had a mild febrile illness last week and had COVID testing which was negative. He has not had any wheezing. Overall his breathing has generally been quite decent. He continues on his IVIG therapies. * . MP-Pulmonary Medicine-[place] [address] [place] Work Phone: [phone] History of Present illness Narrative* He is accompanied by his son. * Since last visit, 12/10/2020, patient finally received his infusion with no issues. It lasted 4 hours. He took 2 Benadryl and 2 Tylenol but still had itching at infusion site and sneezing. He also had post-infusion fatigue and slept the next day. Next one is 04/26/2021. His fatigue and weakness is gra dually worsening over the last 3 months, per his son. * He also c/o increased anxiety and depression with crying on and off. He has doubled on his Effexor and will see Dr. García now that she has returned from maternity leave. * He did not hear from Dr. Magana regarding his PFT results or conversation regarding possible pulmonary rehab, per patient. He had to reschedule his appointment to May 2020 because he was too weak and could not get up. * He is having to use his inhaler 4-6x a day and needs a refill. He is taking Trelegy and also needs a refill on his levalbuterol. He is not using his nebulizer because he ran out of his solution and needs a refill. * He is not using his CPAP and Dr. Nagy ordered a sleep study as well as ENT for possible surgicalevaluation. * Neurology ordered an MRI 02/22/2021, which showed microhemorrhage present prior with no change. YJ-Ftfsbtkqmy-Dydjyh Work Phone: [phone] History of Present illness Narrative* Since last visit, 11/26/2020, patient developed a UTI and double PNA, per patient. He became septic and had a hospitalization. He was given oxygen for 24 hours and continues it BID. CXR was worse compared to prior so he was started on antibiotics. He is completing his antibiotic and will call Dr. Magana Thursday and followup. * He has not had any sputum production to provide a sample. * He saw the COVID team who did labs, stat x-ray and stat CT 12/06/2020. He was ruled out for DVT. * He is taking iron gummies currently. * He is planning on going to [place] 01/17/2021 through 01/21/2021 and asking if he is cleared to go. DE-Kmbdgdtodw-[address] DO Work Phone: [phone] History of Present illness Narrative* Since last visit, 10/30/2020, patient c/o bilateral-sided CP, predominantly right, on inspiration and uncontrolled cough arising from his chest with scant brown expectoration end of last week, but none currently. He had to sleep on pillows 3 days. * He does not follow with Pulmonary because Pulmonary here does not do asthma and he had a bad experience with one here. He is taking Xopenex at least 4-6x a day and the inhaler in between. He is almost done with the acetylcysteine. He is scheduled for [facility] 12/25/2020 and feels better after he getsthem. * He has been taking naps for extended time but slept 4 days last week for most of the days because he could not get up. * He was on a steroid taper prior with constant dose adjustments and completed them 2 weeks ago, but still had respiratory difficulty. * He plans on a trip to [place] and questions feasibility of going on the trip or not. * Dr. Matthews referred him to a coconut candy maker for his chronic bruising. ZK-Birseoradf-Qmshinto [address] DO Work Phone: [phone] History of Present illness Narrative* Since last visit, 10/30/2020, patient c/o bilateral-sided CP, predominantly right, on inspiration and uncontrolled cough arising from his chest with scant brown expectoration end of last week, but none currently. He had to sleep on pillows 3 days. * He does not follow with Pulmonary because he believes Pulmonary here does not do asthma and he had a bad experience with one here. He is taking Xopenex at least 4-6x a day and the inhaler in between.He is almost done with the acetylcysteine. He doesn't feel like it made a difference. He has a scant amount of mucus at this time and he doesn't feel like the mucus is stuck in his chest. He is scheduled for Fasenra 12/25/2020 and feels better after he gets them. * He has been taking naps for extended time but slept 4 days last week for most of the days because he could not get up. * He was on a steroid taper prior with constant dose adjustments and completed them 2 weeks ago, but still had respiratory difficulty. * He plans on a trip to [place] and questions feasibility of going on the trip or not. * Dr. Matthews referred him to a coconut candy maker for his chronic bruising. [facility] Work Phone: [phone] History of Present illness Narrativeright sided pain started about one week ago and it was initially intermittent with inspiration. Past two days pain with inspiration and expiration. Increased pain with cough. Pain with pressure at that side. Patient has long COVID syndrome. He has mucus plugs.MN-Jxzusdlyxv-Hxqvholx [address] DO Work Phone: [phone] History of Present illness NarrativeThe patient is a 61-year-old with multiple comorbidities who had COVID pneumonia about a year ago. His recent CT scan showed stability with some faint groundglass changes and parenchymal scarring localized. There was no diffuse pulmonary fibrosis. He is on nebulized budesonide and he appears so farto be tolerating the tapering of the prednisone. He continues on Fasenra along with Trelegy inhaler. His lungs are clear to auscultation. He continues on the oxygen at night and has not been wearing of late because his daughter's cats 8 through the tubing. Unfortunately he will not get through the cats. Since being seen on June 12, 2021 the patient was hospitalized for bradycardia no specific c ardiac issue was found. He continues on the Fasenra and ran out of his Trelegy over the last several weeks. He also ran out of his budesonide nebulization twice a day. He has not required any rescue inhalers of late and he has no coughing or congestion. He has lost a significant amount of weight and currently is off the prednisone. He has been off prednisone in years. He continues to deal with behavioral health issues and arrangements have been made for him to see different providers. He continues to have difficulties after his daughter's . He also is going to see sleep medicine for the potential pacemaker insertion.-Pulmonary Medicine-[place] [address] [place] Work Phone: [phone] Hospital Discharge instructions* Instructions* Mathew Rios PA - 09/08/2020 Please take medication as prescribed Please follow up with your Physicians as instructed in this discharge paperwork Thank you for choosing [facility] I appreciate your patience Please return to the emergency department if your symptoms worsen, or new symptoms develop as discussed documented in this encounterSUMMA Work Phone: [phone] Hospital Discharge instructions* Instructions* Felisha Rader MD - 08/25/2020 Please return to the emergency department if your symptoms change or worsen. There is a chance that you may be early in the course of a disease process that did not reveal itself today. For this reason you should follow up in 24 hours for re-evaluation with either your primary care physician or if necessary, return here to the Emergency Department. You should return to the Emergency Department immediately if your symptoms worsen or new symptoms develop. * Attachments The following attachments cannot be sent through Care Everywhere. * Pneumonia (Haitian) documented in this encounterSUMMA Work Phone: [phone] History of Present illness Narrative* VELIA BAGLEY is a 61 year-old male who presents to the clinic today for evaluation of dizziness andfalls. The patient has a pertinent past medical history of benign essential tremor, depression, DVT, occipital neuralgia, obstructive sleep apnea, hemicrania continua, polyneuropathy, and vertigo. * The patient was last seen by Dr. Miller on July 12, 2020 and he had been stable from a neurological standpoint. He was encouraged to continue seeing Dr. Matthews for headache management and he was tocontinue his Wentworth, Aimovig, Topamax, and amitriptyline for migraine management. The patient was encouraged to wear his wrist splints for his carpal tunnel. The patient was to get a CPAP mask refit done and he was sent down to the sleep lab following his appointment with Dr. Miller. The patient was encouraged to wear his CPAP every night and all night. The patient was noted to have an essential tremor but it was stated that treatment would be put on hold for this. The patient was on primidone in the past but was noted to have increased amount of twitching from the medication. * The patient was noted to have had a sleep study done in 2019 that showed an AHI of 10.1 with a low oxygen saturation of 71.7%. Has been evaluated at the [facility] for Inspire, deemed not a candidate. * The patient did see Dr. Matthews for migraine follow-up in September 2020 and he was to stop Aimovig and start Botox for migraine management. Per that note, the patient's daughter did pass away in August 2020 and the patient was going through a lot of stress with an increase in his migraine frequency. * Per chart review, did have COVID pneumonia in July and sepsis in November and has been following with pulmonary. Wearing O2 at night, referred to cardiopulmonary rehab. * Today the patient states he has had two falls since January and he is now having some dizziness. He is worried these are symptoms of COVID long haul. He states he had COVID in July- went into hospital July 29-August 06. He states that he had pneumonia and abnormal heart rhythm. He states he hascalled cardiopulmonary rehab but hasn't heard back from them. He stopped using CPAP middle of December due to waking up and panicking with it on. He states he is waiting on a second consultation for the Inspire device. He did go to see Dr. Ruffin at [facility] (deemed him not a candidate for Inspire?) andDr. Magana at referred him for an Inspire evaluation at . He is wearing oxygen at night since about 2 weeks ago per pulmonology after nocturnal O2 study. PFT scheduled on 02/15, f/u pulmonology 02/18. * First fall was 12/31/20, he was getting up from recliner, and he fell over. He denied feeling dizzy or lightheaded with that fall but states he did hit the right side of his head. The second fall was on 01/22/21, he had come into the house and there was a step in the entryway and he fell forward, andhe did feel dizzy with that fall. He does continue to have residual right upper side pain post fall. He states he's been having room spinning sensations since his first fall. He states if he shuts his eyes, it can go away. He feels that fatigue can bring about the dizziness. He states he continues to have brain fog as well, both short and terminal clerk memory. No double vision or blurry vision, did have them after falls. * Has constant fatigue, dry cough, brain fog, worsening COPD since COVID. He does see the COVID clinic at at [facility]. * He states he would like to go back up on the gabapentin to 800 mg 4x daily, it was reduced to 600 mg 4x daily by Dr. Matthews. XV-Gejyenfcf-Pihxq [address] Work Phone: [phone] History of Present illness Narrative* VELIA BAGLEY is a 61 year-old male who presents to the clinic today for evaluation of dizziness andfalls. The patient has a pertinent past medical history of benign essential tremor, depression, DVT, occipital neuralgia, obstructive sleep apnea, hemicrania continua, polyneuropathy, and vertigo. * The patient was last seen by Dr. Miller on July 12, 2020 and he had been stable from a neurological standpoint. He was encouraged to continue seeing Dr. Matthews for headache management and he was tocontinue his Wentworth, Aimovig, Topamax, and amitriptyline for migraine management. The patient was encouraged to wear his wrist splints for his carpal tunnel. The patient was to get a CPAP mask refit done and he was sent down to the sleep lab following his appointment with Dr. Miller. The patient was encouraged to wear his CPAP every night and all night. The patient was noted to have an essential tremor but it was stated that treatment would be put on hold for this. The patient was on primidone in the past but was noted to have increased amount of twitching from the medication. * The patient was noted to have had a sleep study done in 2019 that showed an AHI of 10.1 with a low oxygen saturation of 71.7%. Has been evaluated at the [facility] for Inspire, deemed not a candidate. * The patient did see Dr. Matthews for migraine follow-up in September 2020 and he was to stop Aimovig and start Botox for migraine management. Per that note, the patient's daughter did pass away in August 2020 and the patient was going through a lot of stress with an increase in his migraine frequency. * Per chart review, did have COVID pneumonia in July and sepsis in November and has been following with pulmonary. Wearing O2 at night, referred to cardiopulmonary rehab. * Today the patient states he has had two falls since January and he is now having some dizziness. He is worried these are symptoms of COVID long haul. He states he had COVID in July- went into hospital July 29-August 06. He states that he had pneumonia and abnormal heart rhythm. He states he hascalled cardiopulmonary rehab but hasn't heard back from them. He stopped using CPAP middle of December due to waking up and panicking with it on. He states he is waiting on a second consultation for the Inspire device. He did go to see Dr. Ruffin at [facility] (deemed him not a candidate for Inspire?) andDr. Magana at referred him for an Inspire evaluation at . He is wearing oxygen at night since about 2 weeks ago per pulmonology after nocturnal O2 study. PFT scheduled on 02/15, f/u pulmonology 02/18. * First fall was 12/31/20, he was getting up from recliner, and he fell over. He denied feeling dizzy or lightheaded with that fall but states he did hit the right side of his head. The second fall was on 01/22/21, he had come into the house and there was a step in the entryway and he fell forward, andhe did feel dizzy with that fall. He does continue to have residual right upper side pain post fall. He states he's been having room spinning sensations since his first fall. He states if he shuts his eyes, it can go away. He feels that fatigue can bring about the dizziness. He states he continues to have brain fog as well, both short and half-way memory. No double vision or blurry vision, did have them after falls. * Has constant fatigue, dry cough, brain fog, worsening COPD since COVID. He does see the COVID clinic at at [facility]. * He states he would like to go back up on the gabapentin to 800 mg 4x daily, it was reduced to 600 mg 4x daily by Dr. Matthews. ST-Nktvctnly-[address] Work Phone: [phone] History of Present illness Narrative* 60-year-old man with history of COVID-19 pneumonia in July 2020 (cough, shortness of breath, fever- was hospitalized at [facility] and treated with remdesivir, Decadron, aztreonam and doxycycline, was on supplemental oxygen for 10 days following hospitalization), also history of longstanding asthma (follows with Dr Brown, on Trelegy Ellipta, Xopenex, Acetylcysteine, Fasenra), chronic fatigue, depression, hypertension, essential tremor, LLE DVT about 4 years ago (on previous AC), GERD, hyperlipidemia, ANN (intolerant of CPAP, scheduled for an inspire device consultation), polyneuropathy on gabapentin, vertigo, migraines (follows with neurology, gets Botox injections), dysphagia. * Patient continued to experience shortness of breath, cough and fatigue post Covid infection, worsened in the beginning of November, CT chest on 11/02/2020 showed right midline nodule vs infiltrate, moderate diffuse pulmonary opacities c/w edema vs multifocal pneumonia -was treated with azithromycin and Augmentin as well as a prednisone taper which he is still on. Had worsening symptoms as well as feverof 103 F and was admitted at the with sepsis, lactic acidosis secondary to UTI and pneumonia, discharged on cefdinir. He was on supplemental O2 while admitted - weaned to RA prior to discharge. * Today he complains of persistent fatigue, dyspnea on exertion, bouts of dry cough. He is finishing Cefdinir and Prednisone and is scheduled to see his PCP tomorrow and Dr Magana (pulm) in January. He denies any chest pain, LE edema, orthopnea. * Pt reports feeling depressed due to recent of his daughter, denies SI. * He has lost * 50 lb since Covid infection due to poor appetite and also long-standing dysphagia. He has h/o thrush but is currently asymptomatic. He has seen a dietitian and is using Boost supplements. [facility] [address] [place] Work Phone: [phone] 577-563103-01-2021 History of Present illness Narrative* Covid-19 infection date: July 2020 (sx: cough, SOB, fever hospitalized at [facility] and treatdwith Remdesivir, Decadron, Antibiotics, was on supplemental O2 for 10 days following hospitalization) * Covid-19 vaccine status: Pfizer x1, last 02/2021 * Occupation: retired * Current Care Providers: PCP Dr. Rayo, Pulmonary Dr. Magana, Immunology Dr. Brown, NeurologyDr. Matthews and Dr. Miller, Pain Management Dr. 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 * Overall, he is not feeling much improved. States he is having good and bad days. * Continued depression, speaks to a licensed psychologist director in [place] a few times per month, has not established carewith psychiatrist yet and would like to. PCP increased Effexor dose which is helping some. * Dysphagia has been going on for a few years, at times aspirates, drinks boost when not able to eat enough, would like to see ENT for this. Does not feel dysphagia is worse. * Also would like to see ENT to be evaluated for inspire device to help treat his ANN, he is not ableto tolerate CPAP. Pulmonary ordered nocturnal oxygen replacement * PITTS and dry cough is unchanged, follows with pulmonary for this. * He has been walking the hallways and stairs at his apartment building for exercise, Would like to move forward with PT as well, afraid to go to the GYM d/t COVID. He feels more deconditioned in the winter when not playing golf. * Missed cardiology appointment, will reschedule. * Notes that he was tachycardic when receiving infusion last week, GP trying to wean off steroid as he feels that is related * Brain fog is still ongoing and bothersome, started taking his son to medical appointments but his son is overwhelmed. 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 Magana * -05/2021 audiology for dizziness and hearing loss, patient was unable to complete testing as he could not keep his eyes open, gaze test and OPKs were normal, recommended follow up with neurology. * -05/2021 Neurology orderd autonomic testing and echocardiogram for dizziness, if negative will consider MRA of neck and brain. Increased amitriptyline HS for headaches, continue norco, aimovig, topamax. Also received Toradol injection. * -05/2021 Pulmonary update that patient is having difficulty swallowing and seeing ENT next week, onpulmicort, starting pulm rehab * Imaging: * -11/2020 CT chest showed right midline nodule vs infiltrate, moderate diffuse pulmonary opacities c/w edema vs multifocal pneumonia * -12/2020 CXR with interstitial and patchy parenchymal opacities in the left lung similar to previous acute interstitial pneumonitis or chronic changes * -12/2020 CTA chest shows no PE, small left pleural effusion, extensive bilateral upper lobe GGO * -01/2021 HRCT improved bandlike and subtle GGO throughout bilateral lung quesada, component of mild background fibrosis cannot be excluded, mild coronary artery calcifications * -02/2021 MRi brain shows mild senescent changes otherwise unremarkable * -03/2021 PFTs revealed moderate restriction with a bronchodilator response, DLCO severely reduced consistent with interstitial change son the CT scan probably post-COVID and 6mwt * -04/2021 audiology testing shows normal middle ear function and mild gradually sloping to moderate sensorineural hearing loss bilaterally * Blood work: * -12/2020 D-Dimer 607, CBC/D iron deficiency anemia, BMP * -01/2021 immunoglobulins, diphtheria antibody assay, tetanus Ab, H influenza B IgG, strep pneumococcal IgG Ab, iron studies show deficiency, CBC/D SARS-CoV-2 nucleocapsid IgG Ab positive, immunodeficiency profile * Exercise: less often * Diet: healthy less often * Weight pre/post-COVID: * Substance use: denies * Social: * Family Hx: HTN, alzheimer s disease, CAD, parkinson s disease, DM * Surgial Hx: hip fracture repair, hip replacement, knee surgeries, spine surgeries [facility] [address] [place] Work Phone: [phone] History of Present illness Narrative* Covid-19 infection date: July 2020 (sx: cough, SOB, fever hospitalized at [facility] and treatdwith Remdesivir, Decadron, Antibiotics, was on supplemental O2 for 10 days following hospitalization) * Covid-19 vaccine status: Pfizer 02/2021, 08/2021 * Occupation: retired * Current Care Providers: PCP Dr. Rayo, Pulmonary Dr. Magana, Immunology Dr. Brown, NeurologyDr. Matthews and Dr. Miller, Pain Management Dr. Jiménez, Cardiology Dr. Park, ENT Dr. Ruffin [facility], Hematology at [facility] * Survey scores: 12/2020 -> 08/2021 -> 05/2022 * PHQ-9: 18 -> 18 -> 22 * MARY-7: 10 -> 10 -> 18 * Sleep Wellness: 7 -> 7 -> 7 * FSS average: 6 -> 6 -> 6 * Modified ECog average: 3 -> 3 -> 3.333 * MOCA: 22/30 (12/2020) -> 21/30 (05/2022) * Overall Health: 15 -> 40 * 62yo man with h/o COVID-19 pneumonia in July 2020, asthma, chronic fatigue, depression, HTN, essential tremor, LLE DVT about 4 years ago (on previous AC), GERD, hyperlipidemia, ANN not tolerated of CPAP on 2L o2 at night, polyneuropathy, vertigo, migraines, dysphagia, CVA in 2018 with residual weak ness, presents [facility] with c/o Cognitive and memory changes,insomnia, shortness of breath, cough, anxiety, depression, musculoskeletal pain, weakness * Asthma has been aggravated, non-productive cough, had a cold last week * Carries a sputum cup with him in case he produces sputum for culture * Following closely with immunology and pulmonary * Fatigue has been OK overall, brain fog is worse, moving around medications to see if it will get better * A lot of anxiety some days about the brain fog * Some days worried that he has the beginning of Alzheimer s given strong family hx * Also still processing stress and grief * Depression is still present * Now also stressed about becoming a grandfather in 5 months, son s girlfriend is now living with him, will have baby in the house * He has not been sleeping well, sleeping for 2-3 hours at a time, sleeps for around one hour after he turns the TV on until he falls back asleep, usually goes to sleep around 10/10:30 and then is out until around 2am and then tries to go back to sleep * Sometimes has to hop picker his son late at night, also has to hop picker son s girlfriend at night at times * Son s girlfriend has been having seizures throughout , does not get along with her family so Velia is now helping take care of her as well * Tried to set up therapy multiple times through , will be establishing with [facility] mental health provider * Has been following with hematology for iron infusions * Will be following up in 3 months again, current iron levels are stable, taking PO iron supplements daily * Was recommended to increase green leafy vegetables * Had 16 falls since , one that caused him to pass out and fall, was seen in ED then * Appointment this to have eyes examined, vision has been poor since latest COVID * Legs with pain and weakness, following with ortho at [facility], evaluation was normal * Had MRI of spine ordered * Pain management scheduled PT but ortho wants to hold off until he finds out what is going on with his spine * Relevant Hx: * -03/2021 sleep medicine referred to ENT for inspire therapy * -05/2021 audiology for dizziness and hearing loss, patient was unable to complete testing as he could not keep his eyes open, gaze test and OPKs were normal, recommended follow up with neurology. 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 * -04/2022 Pulmonary ordred HRCT to f/u on previous GG changes and other scattered areas, hyperreactive airways disease seems under decent control presently * -05/2022 pain management started flexeril, renewed norco and lyrica * Imaging: * -12/2020 CTA chest shows no PE, small left pleural effusion, extensive bilateral upper lobe GGO * -02/2021 MRi brain shows mild senescent changes otherwise unremarkable * -03/2021 PFTs revealed moderate restriction with a bronchodilator response, DLCO severely reduced consistent with interstitial change son the CT scan probably post-COVID and 6mwt * -04/2021 audiology testing shows normal middle ear function and mild gradually sloping to moderate sensorineural hearing loss bilaterally * -06/2021 HRCT shows overall stable faint GGO and parenchymal bands, no fibrosis, mild coronary artery calcifications, trace pericardial effusion * -07/2021 echocardiogram shows mild concentric LV hypertrophy, EF 60-65%, trace aortic regurgitation, trace tricuspid regurgitation * -11/2021 CXR shows low lung volumes with similar appearing atelectasis at the left lung base compared to prior * -12/2021 overnight oximetry * -04/2022 CT head unremarkable * -04/2022 HRCT shows persistent diffuse GG and bandlike opacities throughout the lungs similar to 2020, findings of multifocal air trapping, mild coronary artery calcification * -05/2022 EGD shows patchy mild mucosal changes characterized by subtle scarring and altered texturefound in the esophagus and stomach, biopsies taken * Blood work: * -12/2020 D-Dimer 607 * -01/2021 immunoglobulins, diphtheria antibody assay, tetanus Ab, H influenza B IgG, strep pneumococcal IgG Ab, SARS-CoV-2 nucleocapsid IgG Ab positive, immunodeficiency profile * -05/2021 CBC/D with Hb 10.3, ESR, CRP, CMP with K 3.1, Iron studies low, BNP, TSH, AM cortisol 3.2,Vitamin B12, RF, MIRNA * -08/2021 CMP with creatinine 1.51 * -01/2022 CBC/D shows Hb 9.5, iron low, ferritin 6 * -05/2022 CBC with Hb 13.8, LDH, iron studies, Ferritin 185 * Exercise: less often * Diet: healthy less often * Weight pre/post-COVID: currently 182lbs * Substance use: denies * Social: * Family Hx: HTN, alzheimer s disease, CAD, parkinson s disease, DM * Surgial Hx: hip fracture repair, hip replacement, knee surgeries, spine surgeries [facility] [address] [place] Work Phone: 1([phone]) 562-228603-01-2021 History of Present illness Narrative* Covid-19 infection date: July 2020 (sx: cough, SOB, fever hospitalized at [facility] and treatdwith Remdesivir, Decadron, Antibiotics, was on supplemental O2 for 10 days following hospitalization) * Covid-19 vaccine status: Pfizer 02/2021, 08/2021, 06/2022 * Occupation: retired * Current Care Providers: PCP Dr. Rayo, Pulmonary Dr. Magana, Immunology Dr. Brown, NeurologyDr. Matthews and Dr. Miller, Pain Management Dr. Jiménez, Cardiology Dr. Park, ENT Dr. Ruffin [facility], Hematology at [facility], ENT at [facility] * Survey scores: 12/2020 -> 08/2021 -> 05/2022 * PHQ-9: 18 -> 18 -> 22 * MARY-7: 10 -> 10 -> 18 * Sleep Wellness: 7 -> 7 -> 7 * FSS average: 6 -> 6 -> 6 * Modified ECog average: 3 -> 3 -> 3.333 * MOCA: 22/30 (12/2020) -> 21/30 (05/2022) * Overall Health: 15 -> 40 -> 61 * 62yo man with h/o COVID-19 pneumonia in July 2020, asthma, chronic fatigue, depression, HTN, essential tremor, LLE DVT about 4 years ago (on previous AC), GERD, hyperlipidemia, ANN not tolerated of CPAP on 2L o2 at night, polyneuropathy, vertigo, migraines, dysphagia, CVA in 2018 with residual weak ness, [facility] with c/o Cognitive and memory changes,fatigue, insomnia, shortness of breath, cough, anxiety, depression, musculoskeletal pain, weakness. * Has been feeling poorly * Two years since his daughter * Seeing therapist every two weeks, that has been helpful * Future infusions are up in the air, home RN is on leave * Son has been doing well, was recognized at work but then he was let go, not looking for work which is a financial strain for Velia * Cognitive and memory changes has been suffering from the added stress, cannot remember what he is doing at times * Sleep has been off and on, takes a lot out of him to go to sleep * Groggy in the morning, especially if he is not able to sit down and watch TV, son drove him today * Horrible headaches, on left and right, will be seeing Neurology next week * Neuropsychology is coming up October 28 * No new developments in regards to musculoskeletal pain, ortho ordered MRI of lower spine, was referred to surgeon * Surgeon recommended brace for his foot and aquatherapy, will schedule at [facility] * Relevant Hx: * -03/2021 sleep medicine referred to ENT for inspire therapy * -05/2021 audiology for dizziness and hearing loss, patient was unable to complete testing as he could not keep his eyes open, gaze test and OPKs were normal, recommended follow up with neurology. * -01/2022 ENT suspects throat discomfort is due to GERD and increased PPI dose, does not feel patient is a candidate for Inspire based on mild ANN and nocturnal O2 use * -01/2022 shipping & receiving lead at OSH recommends iron infusions * -04/2022 Pulmonary ordred HRCT to f/u on previous GG changes and other scattered areas, hyperreactive airways disease seems under decent control presently * -05/2022 pain management started flexeril, renewed norco and lyrica * -05/2022 Neurology renewed aimovig and topiramate for chronic migraine, gave toradol in office * -06/2022 Immunology notes antipneumococcal polysaccharide antibody deficiency is well controlled, recommends Asmanex if OK with Pulmonary, ordered CT sinus for new onset recurrent sinusitis * -07/2022 Pulmonary suggests prednisone taper, continue Budesonide and holding Asmanex * -08/2022 ENT at [facility] for dysphonia, evaluation notes mild irritation of the vocal fords with increased straining during phonation, 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 * Imaging: * -12/2020 CTA chest shows no PE, small left pleural effusion, extensive bilateral upper lobe GGO * -02/2021 MRi brain shows mild senescent changes otherwise unremarkable * -03/2021 PFTs revealed moderate restriction with a bronchodilator response, DLCO severely reduced consistent with interstitial change son the CT scan probably post-COVID and 6mwt * -04/2021 audiology testing shows normal middle ear function and mild gradually sloping to moderate sensorineural hearing loss bilaterally * -06/2021 HRCT shows overall stable faint GGO and parenchymal bands, no fibrosis, mild coronary artery calcifications, trace pericardial effusion * -07/2021 echocardiogram shows mild concentric LV hypertrophy, EF 60-65%, trace aortic regurgitation, trace tricuspid regurgitation * -11/2021 CXR shows low lung volumes with similar appearing atelectasis at the left lung base compared to prior * -12/2021 overnight oximetry * -04/2022 CT head unremarkable * -04/2022 HRCT shows persistent diffuse GG and bandlike opacities throughout the lungs similar to 2020, findings of multifocal air trapping, mild coronary artery calcification * -05/2022 EGD shows patchy mild mucosal changes characterized by subtle scarring and altered texturefound in the esophagus and stomach, biopsies taken * -07/2022 CT sinus normal * -08/2022 CT head and C-spine normal * -08/2022 X-ray hip without fracture, mild degenerative changes * Blood work: * -12/2020 D-Dimer 607 * -01/2021 immunoglobulins, diphtheria antibody assay, tetanus Ab, H influenza B IgG, strep pneumococcal IgG Ab, SARS-CoV-2 nucleocapsid IgG Ab positive, immunodeficiency profile * -05/2021 CBC/D with Hb 10.3, ESR, CRP, CMP with K 3.1, Iron studies low, BNP, TSH, AM cortisol 3.2,Vitamin B12, RF, MIRNA * -08/2021 CMP with creatinine 1.51 * -01/2022 CBC/D shows Hb 9.5, iron low, ferritin 6 * -05/2022 CBC with Hb 13.8, LDH, iron studies, Ferritin 185 * -06/2021 Respiratory allergy panel * -08/2022 CMP with Na 133, CBC/D, iron studies, Ferritin 110, Immunoglobulin IgG * Exercise: less often * Diet: healthy less often * Weight pre/post-COVID: currently 182lbs * Substance use: denies * Social: * Family Hx: HTN, alzheimer s disease, CAD, parkinson s disease, DM * Surgial Hx: hip fracture repair, hip replacement, knee surgeries, spine surgeries [facility] [address] [place] Work Phone: 1([phone]) [phone] History of Present illness Narrative* Mr. Bagley is a 62-year-old, right-handed, male, with history of COVID- 19 infection in July 2020; he was hospitalized at [facility] and treated with Remdesivir, Decadron, antibiotics, and supplemental O2 for 10 days following hospitalization. He was seen in the [facility] on 06/03/2021 and 06/02/2022 with complaints of cognitive/memory changes, fatigue, insomnia, shortness of breath, cough, anxiety, depression, musculoskeletal pain, and weakness. He has been followed by Pulmonary Medicine for persistent diffuse ground-glass and bandlike opacities in the lungs, described as likely post-COVID fibrotic like changes. * Per records, Mr. Bagley has a longstanding history with Neurology, and is currently followed by Dr. Matthews for neurological management of headaches/migraines, prior to which he was followed by Dr. Jarret Samson (for hemicrania continua since 2005 ). [facility] Work Phone: [phone]) 153-424201-04-2018 History of Present illness Narrative* The patient is a 61-year-old with a history of hypertension, essential tremor, left lower extremityDVT around 4 years ago, GERD, hyperlipidemia, obstructive sleep apnea, polyneuropathy, vertigo, migraine headaches and dysphagia with a past history of aspiration pneumonia. He also has a history of asthma dating back to childhood with multiple exacerbations over the years. He is a never smoker. Hehad Covid pneumonia in July of this year apparently treated with remdesivir and corticosteroids. In November he had an episode of sepsis and he also was treated for superimposed bacterial pneumonia. About a month ago he had a CT scan because of elevated D-dimer and shortness of breath and there is no evidence of thromboembolic disease. When seen on January 02, 2021 he had continued shortness of breath with some desaturation down to 86% at home. Currently in the office his percent saturation was 90% when he came into the office and then thereafter increased to 95%. He did not desaturate with walk ing. An HRCT scan of the chest was obtained and revealed continued groundglass changes which would be expected in association with pneumonia associated with COVID-19. There had been improvement compared to the previous study CTA. It was felt that he very well may need oxygen at night and I was going to order nocturnal oximetry study. He does have PFTs scheduled shortly. * When last seen on January 15, 2021 he was doing better and was using Xopenex. He qualified for nocturnal oxygen ministration with his percent saturation equaling or following less than a 9% 5.2 minutes per night. He had a sleep evaluation but was intolerant of CPAP the year before. Potentially was a candidate for inspire therapy. 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 He is being treated for GERD and he continues on Trelegy for his hyperreactive airway * PFTs reveal moderate restriction with a bronchodilator response. The DLCO is severely reduced consistent with interstitial changes on the CT scan. On a 6- minute walk however he did not desaturate below 92%. He had to cancel his appointment because of some fever and [place] and has been started on an antibiotic. In addition he is to be started on gammaglobulin infusions by allergy immunology. He will keep me posted * Since being seen the patient has had flaring of his breathing with cough and congestion. He has been treated by Dr. Brown with prednisone starting at 60 mg and over the last month has been tapered down to 20 mg. Intermittently he has had increased wheezing during this timeframe and self-increases the prednisone somewhat. He has been using his Xopenex as needed and he also went to sleep medicine for the evaluation as outlined above. He is waiting for an ENT evaluation. His Topamax has been adjusted because of headaches. He has had some dizziness. He has had problems with a tremor and chronic shortness of breath. His balance has been an issue he has had problems with word finding. He has been followed by neurology. He continues on his Trelegy inhaler. -[facility] [address] [place] Work Phone: [phone]) 539-202409-02-2017 History of Present illness Narrative* The patient is a 60-year-old with a history of hypertension, essential tremor, left lower extremityDVT around 4 years ago, GERD, hyperlipidemia, obstructive sleep apnea, polyneuropathy, vertigo, migraine headaches and dysphagia. As outlined in the file he saw Dr. Malagon in pulmonary evaluation around 4 years ago. He has a history of asthma dating back to childhood with multiple exacerbations with a past history of a DVT. Family history of asthma was outlined and he was said to be a never smoker. His IgE level was normal and he also at that time complains of fatigue shortness of breath and productive cough. Daytime somnolence was outlined and he had chronic edema. There is also a history ofan elevated arsenic level in the past. He was to be referred to sleep medicine. Spirometric measurements in the file have been moderately restriction but efforts were poor. * He was seen by pulmonology at [facility] on November 21, 2019. He was noted to have had a hip fracture with postoperative breathing issues. He has sleep apnea and CPAP abdomen requested but there were some insurance issues. 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 It was reported that a sleep study in November 2017 revealedmild sleep apnea with periodic leg movement disorder. He is being treated with Symbicort and Spiriva. Spirometry from April 19, 2019 performed with good effort revealed a forced vital capacity of 2.41 L 51% that there was an FEV1 of 2.16 L or 60% predicted and FL percent of 90%. After bronchodilators the FVC increased 15% to 2.78 L or 59% predicted and the FEV1 was 2.46 L or 69% predicted a 14% increase in the FEV1 percent was 89%. The TLC was 60% predicted and the DLCO was 56% predicted corrected for lung volumes; he weighed 218 pounds was 69 inches in height * He was hospitalized for Covid pneumonia in July 2020 at [facility]. He was treated with remdesivir and Decadron and also received antibiotics. He he was discharged on supplemental oxygenfor around 10 days following discharge. He also has a long history of asthma followed by allergy treated with Trelegy, Xopenex, azelastine and Fasenra. * On September 08, [address] patient [address] a CT scan obtained because of shortness of breath. Reportedly there was uniformly distributed interstitial thickening and scarring which could be the sequela of Covid pneumonia. A chest x-ray from October 30, 2020 revealed left basilar opacification or atelectasis. Thereis a small left effusion. The right lung was overall clear. Subsequently a CT scan was obtained on November 02, 2020 as outlined above. It was felt that the interstitial changes were worse compared to theprevious examination. Also there was some ileus. The CT scan was compared to a previous one from February 06, 2020 and a chest x-ray from August 31, 2020. * He was admitted with sepsis in November 2020 felt to be from a urinary tract infection with lactic acidosis and he also was felt to have pneumonia. He was treated with broad-spectrum antibiotics and discharged on cefdinir. When seen in the Covid clinic around a month ago he was having dyspnea on exertion with coughing. He just finished the antibiotics and prednisone. He had also lost 50 pounds in association with his Covid infection due to poor appetite and longstanding dysphagia. He was determinedto have an elevated D-dimer when seen in COVID Recovery clinic on December 06, [address] angiogramwas obtained which revealed no PE. There was extensive bilateral upper lobe groundglass opacities. The question of superimposed pneumonia was raised and he was being treated with Augmentin. 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 He has had a decrease in appetite and has lost 50 pounds. He has also been some abdominal ileus noted. Furthermore he lost his daughter during the pandemic at the same time as his infection from Covid. * The patient reports that over the last month he has continued shortness of breath and marked fatigue. He is having trouble remembering things and his percent saturation at home vary from 86 to 92%. He has difficulty performing any type of activities even has difficulty getting out of bed. After thevisit to the Covid recovery clinic a month ago he received some antibiotics probably Augmentin and he also received a prednisone taper prescribed by Dr. Brown for an asthma flare. He has been determined to have a low IgG level without response to pneumococcus vaccine and he is being considered for IVIG therapies. He has no chest pains or pressures. He has noted some voice changes at times. Hereports in the past having swallowing difficulty and has had aspiration pneumonia previously. He did go to speech therapy in the past. He is a non-smoker. He also has been treated for asthma over theyears as outlined above. He has received very courses of corticosteroids and has continued on Fasenra. [facility] [address] [place] Work Phone: [phone] History of Present illness Narrative* The patient is a 60-year-old with a history of hypertension, essential tremor, left lower extremityDVT around 4 years ago, GERD, hyperlipidemia, obstructive sleep apnea, polyneuropathy, vertigo, migraine headaches and dysphagia. As outlined in the file he saw Dr. Malagon in pulmonary evaluation around 4 years ago. He has a history of asthma dating back to childhood with multiple exacerbations with a past history of a DVT. Family history of asthma was outlined and he was said to be a never smoker. His IgE level was normal and he also at that time complains of fatigue shortness of breath and productive cough. Daytime somnolence was outlined and he had chronic edema. There is also a history ofan elevated arsenic level in the past. He was to be referred to sleep medicine. Spirometric measurements in the file have been moderately restriction but efforts were poor. * He was seen by pulmonology at [facility] on November 21, 2019. He was noted to have had a hip fracture with postoperative breathing issues. He has sleep apnea and CPAP abdomen requested but there were some insurance issues. 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 It was reported that a sleep study in November 2017 revealedmild sleep apnea with periodic leg movement disorder. He is being treated with Symbicort and Spiriva. Spirometry from April 19, 2019 performed with good effort revealed a forced vital capacity of 2.41 L 51% that there was an FEV1 of 2.16 L or 60% predicted and FL percent of 90%. After bronchodilators the FVC increased 15% to 2.78 L or 59% predicted and the FEV1 was 2.46 L or 69% predicted a 14% increase in the FEV1 percent was 89%. The TLC was 60% predicted and the DLCO was 56% predicted corrected for lung volumes; he weighed 218 pounds was 69 inches in height * He was hospitalized for Covid pneumonia in July 2020 at [facility]. He was treated with remdesivir and Decadron and also received antibiotics. He he was discharged on supplemental oxygenfor around 10 days following discharge. He also has a long history of asthma followed by allergy treated with Trelegy, Xopenex, azelastine and Fasenra. * On September 08, [address] a [address] scan obtained because of shortness of breath. Reportedly there was uniformly distributed interstitial thickening and scarring which could be the sequela of Covid pneumonia. A chest x-ray from October 30, 2020 revealed left basilar opacification or atelectasis. Thereis a small left effusion. The right lung was overall clear. Subsequently a CT scan was obtained on November 02, 2020 as outlined above. It was felt that the interstitial changes were worse compared to theprevious examination. Also there was some ileus. The CT scan was compared to a previous one from February 06, 2020 and a chest x-ray from August 31, 2020. * He was admitted with sepsis in November 2020 felt to be from a urinary tract infection with lactic acidosis and he also was felt to have pneumonia. He was treated with broad-spectrum antibiotics and discharged on cefdinir. When seen in the Covid clinic around a month ago he was having dyspnea on exertion with coughing. He just finished the antibiotics and prednisone. He had also lost 50 pounds in association with his Covid infection due to poor appetite and longstanding dysphagia. He was determinedto have an elevated D-dimer when seen in COVID Recovery clinic on December 06, [address] angiogramwas obtained which revealed no PE. There was extensive bilateral upper lobe groundglass opacities. The question of superimposed pneumonia was raised and he was being treated with Augmentin. 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 He has had a decrease in appetite and has lost 50 pounds. He has also been some abdominal ileus noted. Furthermore he lost his daughter during the pandemic at the same time as his infection from Covid. * The patient reports that over the last month he has continued shortness of breath and marked fatigue. He is having trouble remembering things and his percent saturation at home vary from 86 to 92%. He has difficulty performing any type of activities even has difficulty getting out of bed. After thevisit to the Covid recovery clinic a month ago he received some antibiotics probably Augmentin and he also received a prednisone taper prescribed by Dr. Brown for an asthma flare. He has been determined to have a low IgG level without response to pneumococcus vaccine and he is being considered for IVIG therapies. He has no chest pains or pressures. He has noted some voice changes at times. Hereports in the past having swallowing difficulty and has had aspiration pneumonia previously. He did go to speech therapy in the past. He is a non-smoker. He also has been treated for asthma over theyears as outlined above. He has received very courses of corticosteroids and has continued on Fasenra. [facility] [address] [place] Work Phone: Chief complaint Narrative - Reported* VELIA BAGLEY is here for an initial evaluation. * Reason for Visit: Consult referred by Dr. Courtney Brown regarding poorly controlled asthma, cough and lack of energy. [facility] [address] [place] Work Phone: Chief complaint Narrative - Reported* Neurologic Evaluation. * dizziness and falls [facility] [address] Work Phone: Chief complaint Narrative - Reported* Neurologic Evaluation. * Follow up migraine management [facility] [address] [place] Work Phone: Chief complaint Narrative - Reported* Dizziness * Neurologic Evaluation. * Follow up on dizziness and frequent falls [facility] [address] Work Phone: Chief complaint Narrative - Reported* Neurologic Evaluation. * dizziness and falls [facility] [address] Work Phone: Chief complaint Narrative - Reported* Neurologic Evaluation. * Follow up migraine management [facility] [address] [place] Work Phone: Chief complaint Narrative - Reported* Neurologic Evaluation. * Follow up migraine management [facility] [address] Work Phone: Chief complaint Narrative - Reported* Neurologic Evaluation. * Follow up migraine management [facility] [address] [place] Work Phone: Chief complaint Narrative - Reported* Migraine management follow up * Neurologic Evaluation. [facility] [address] [place] Work Phone: Chief complaint Narrative - ReportedVelia Bagely was referred for neuropsychological evaluation by CARSON Palacios ([facility]) related to memory complaints and cognitive difficulty. [facility] Work Phone: Evaluation + Plan note Future Appointments Appointment Date:08/25/2022 11:15:00 AM Scheduled Provider:Elizabeth CHAUDHRY MD Location:[facility] Appointment Type:URO Office Visit Diagnostic Tests Pending * PSA Total 05/19/22 [facility] evaluation + Plan note Future Appointments Appointment Date:10/06/2022 01:15:00 PM Scheduled Provider:Elizabeth CHAUDHRY MD Location:[facility] App[facility]ments Appointment Date:11/27/2022 09:30:00 AM Scheduled Provider:Wei Umana MD Location:[facility] Appointment Type:Pain Management - Follow Up (FT) Appointment Date:05/19/2023 02:30:00 PM Scheduled Provider:JESSICA PAYTON PA-C Location:[facility] Appointment Type:URO Office Visit [facility] evaluation + Plan note Future Appointments Appointment Date:05/19/2023 02:30:00 PM Scheduled Provider:JESSICA PAYTON PA-C Location:[facility] Appointment Type[facility] Future Appointments Appointment Date:08/04/2023 08:20:00 AM Scheduled Provider:JESSICA PAYTON PA-C Location:[facility] Appointment Type:URO [facility] Future Appointments Appointment Date:09/18/2023 12:45:00 PM Scheduled Provider:Barbara Duron PA-C Location:[facility] Appointment Type:Pain Management - Follow Up (FT) [facility] evaluation + Plan note Future Appointments Appointment Date:09/18/2023 12:45:00 PM Scheduled Provider:Barbara Druon PA-C Location:[facility] Appointment Type:Pain Management - Follow Up (FT) Appointment Date:09/06/2024 10:00:00 AM Scheduled Provider:JESSICA PAYTON PA-C Location:[facility] Appointment Type:URO Office Visit Diagnostic Tests Pending * PSA Screen, Total 09/01/23 [facility] evaluation + Plan note Future Appointments Appointment Date:09/06/2024 10:00:00 AM Scheduled Provider:JESSICA PAYTON PA-C Location:[facility] Appointment Type:URO Office Visit [facility] Evaluation + Plan note Future Appointments Appointment Date:09/20/2024 02:00:00 PM Scheduled Provider:JESSICA PAYTON PA-C Location:[facility] Appointment Type:URO Office Visit Appointment Date:10/06/2024 11:30:00 AM Scheduled Provider:Issa Gonzales DO Location:[facility] Appointment Type:Pain Management - Follow Up (FT) Future Scheduled Tests Laboratory* PSA Total 08/11/24 [facility] evaluation + Plan note Future Appointments Appointment Date:10/06/2024 10:00:00 AM Scheduled Provider:JESSICA PAYTON PA-C Location:[facility] Appointment Type:URO Office Visit Appointment Date:10/06/2024 11:30:00 AM Scheduled Provider:Issa Gonzales DO Location:[facility] Appointment Type:Pain Management - Follow Up (FT) Future Scheduled Tests Laboratory* PSA Total 08/11/24 [facility] evaluation note* Diagnosis Pneumonia of both lungs due to infectious organism, unspecified part of lung- Primary documented in this encounter [facility] Work Phone: Evaluation note* Diagnosis COPD exacerbation (HCC)- Primary Obstructive chronic bronchitis with exacerbation documented in this encounter [facility] Work Phone: Evaluation note* Diagnosis Severe persistent asthma without complication documented in this encounter [employer] Work Phone: evaluation note* Diagnosis Pneumonia of right upper lobe due to infectious organism (HCC) Recurrent aspiration pneumonia (HCC) Pneumonitis due to inhalation of food or vomitus documented in this encounter [facility] Work Phone: evaluation note* Diagnosis Onset Date Resolution Status KRISTA (acute kidney injury) ac leny COPD exacerbation acute Elevated troponin acute Hypokalemia acute Shortness of breath acute [facility] Work Phone: Evaluation noteNo assessment information available [facility] Work Phone: Evaluation note* Diagnosis Onset Date Resolution Status 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) [facility] Work Phone: Evaluation noteNo InformationNort [employer] Other Evaluation note* Diagnosis Interstitial pulmonary disease, unspecified (CMS/HCC) Shortness of breath documented in this encounter [facility] Work Phone: Evaluation note* Diagnosis Memory loss Intractable chronic migraine without aura and with status migrainosus documented in this encounter [facility] Work Phone: Evaluation note* 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 Asthma with chronic obstructive pulmonary disease (COPD) Chronic obstructive asthma, unspecified Fatigue, unspecified type Vitamin D deficiency, unspecified documented in this encounter [facility] Work Phone: Evaluation note* Diagnosis Chronic migraine without aura, with intractable migraine, so stated, with status migrainosus- Primary Intractable chronic migraine without aura and with status migrainosus documented in this encounter [facility] Work Phone: Evaluation note* Diagnosis Onset Date Resolution Status 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) acute 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) acute [facility] Work Phone: Evaluation note* Diagnosis Asthma, severe persistent, poorly-controlled, with acute exacerbation- Primary documented in this encounter [facility] Work Phone: Evaluation note* Diagnosis Chronic migraine without aura without status migrainosus, not intractable Chronic migraine without aura, intractable, with status migrainosus documented in this encounter [facility] Work Phone: Evaluation note* Diagnosis Intractable chronic migraine without aura and with status migrainosus- Primary Chronic migraine without aura without status migrainosus, not intractable documented in this encounter [facility] Work Phone: Evaluation note* Diagnosis Onset Date Resolution Status 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) acute 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) acute Hypokalemia acute Pernicious anemia acute Post-COVID syndrome acute RTA (renal tubular acidosis) acute Wellness examination acute Bilateral primary osteoarthritis of knee acute [facility] Work Phone: Evaluation note* Diagnosis Onset Date Resolution Status 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) acute 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) acute Hypokalemia acute Pernicious anemia acute Post-COVID syndrome acute RTA (renal tubular acidosis) acute Wellness examination acute Bilateral primary osteoarthritis of knee acute Acute febrile illness acute [facility] Work Phone: Evaluation note* Diagnosis Onset Date Resolution Status 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) acute 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) acute Hypokalemia acute Pernicious anemia acute Post-COVID syndrome acute RTA (renal tubular acidosis) acute Wellness examination acute Bilateral primary osteoarthritis of knee acute Acute febrile illness acute Bilateral primary osteoarthritis of knee acute [facility] Work Phone: Evaluation note* Diagnosis Onset Date Resolution Status Hypokalemia acute Pernicious anemia acute Post-COVID syndrome acute RTA (renal tubular acidosis) acute Wellness examination acute Bilateral primary osteoarthritis of knee acute Acute febrile illness acute Bilateral primary osteoarthritis of knee acute 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) acute [facility] Work Phone: Evaluation note* Diagnosis Post concussion syndrome Postconcussion syndrome documented in this encounter [facility] Work Phone: Evaluation note* Diagnosis Intractable chronic migraine without aura and with status migrainosus documented in this encounter [facility] Work Phone: Evaluation note* Diagnosis Onset Date Resolution Status Bilateral primary osteoarthritis of knee acute Acute febrile illness acute Bilateral primary osteoarthritis of knee acute 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) acute 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) acute Arthralgia acute Fatigue acute Hypokalemia acute [facility] Work Phone: evaluation note* Diagnosis Onset Date Resolution Status Acute febrile illness acute Bilateral primary osteoarthritis of knee acute 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) acute 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) acute Arthralgia acute Fatigue acute Hypokalemia acute Bronchitis acute [facility] Work Phone: Evaluation note* Diagnosis Onset Date Resolution Status Bilateral primary osteoarthritis of knee acute 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) acute 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) acute Arthralgia acute Fatigue acute Hypokalemia acute Bronchitis acute [facility] Work Phone: Evaluation note* Diagnosis Onset Date Resolution Status Iron deficiency anemia secon jd to blood loss (chronic) acute Iron deficiency anemia secon jd to blood loss (chronic) acute Arthralgia acute Fatigue acute Hypokalemia acute Bronchitis acute Arthritis of left ankle acut e Bilateral primary osteoarthritis of knee acute Left ankle pain acute Pain of left calf noneactive [facility] Work Phone: Evaluation note* Diagnosis Onset Date Resolution Status Iron deficiency anemia secon jd to blood loss (chronic) acute Arthralgia acute Fatigue acute Hypokalemia acute Bronchitis acute Arthritis of left ankle acut e Bilateral primary osteoarthritis of knee acute Left ankle pain acute Pain of left calf noneactive Iron deficiency anemia secon jd to blood loss (chronic) acute [facility] Work Phone: Evaluation note* Diagnosis Onset Date Resolution Status Iron deficiency anemia secon jd to blood loss (chronic) acute Arthralgia acute Fatigue acute Hypokalemia acute Bronchitis acute Bronchitis acute Pernicious anemia acute Arthritis of left ankle acut e Bilateral primary osteoarthritis of knee acute Left ankle pain acute Pain of left calf noneactive Iron deficiency anemia secon jd to blood loss (chronic) acute Iron deficiency anemia secon jd to blood loss (chronic) acute [facility] Work Phone: Evaluation note* Diagnosis Onset Date Resolution Status Bronchitis acute Pernicious anemia acute Arthritis of left ankle acut e Bilateral primary osteoarthritis of knee acute Left ankle pain acute Pain of left calf noneactive Iron deficiency anemia secon jd to blood loss (chronic) acute Iron deficiency anemia secon jd to blood loss (chronic) acute Bilateral primary osteoarthritis of knee acute [facility] Work Phone: Evaluation note* Diagnosis Onset Date Resolution Status Arthritis of left ankle acut e Bilateral primary osteoarthritis of knee acute Left ankle pain acute Pain of left calf noneactive Iron deficiency anemia secon jd to blood loss (chronic) acute Iron deficiency anemia secon jd to blood loss (chronic) acute Bilateral primary osteoarthritis of knee acute [facility] Work Phone: Evaluation note* Diagnosis Asthma with chronic obstructive pulmonary disease (COPD) (Multi)- Primary Chronic obstructive asthma, unspecified 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 Cognitive dysfunction Unspecified persistent mental disorders due to conditions classified elsewhere Obstructive sleep apnea Obstructive sleep apnea (adult) (pediatric) Physical deconditioning Muscular wasting and disuse atrophy, not elsewhere classified Vocal cord dysfunction Other diseases of vocal cords 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 Asthma with chronic obstructive pulmonary disease (COPD) (Multi) Chronic obstructive asthma, unspecified Fatigue, unspecified type Vitamin D deficiency, unspecified Asthma with chronic obstructive pulmonary disease (COPD) (Multi)- Primary Chronic obstructive asthma, unspecified Anti-pneumococcal polysaccharide antibody deficiency (Multi) Candidiasis of mouth Thrush Candidiasis of mouth Other cardiac arrhythmia Current 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, unspecified whether recurrent (Multi)- Primary Chronic migraine without aura without status migrainosus, not intractable Chronic migraine without aura, intractable, with status migrainosus Dizziness Dizziness and giddiness Asthma with chronic obstructive pulmonary disease (COPD) (Multi)- Primary Chronic obstructive asthma, unspecified GERD without esophagitis Esophageal reflux Anti-pneumococcal polysaccharide antibody deficiency (Multi) documented in this encounter [facility] Work Phone: Evaluation note* Diagnosis Asthma with chronic obstructive pulmonary disease (COPD) (Multi)- Primary Chronic obstructive asthma, unspecified 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 Cognitive dysfunction Unspecified persistent mental disorders due to conditions classified elsewhere Obstructive sleep apnea Obstructive sleep apnea (adult) (pediatric) Physical deconditioning Muscular wasting and disuse atrophy, not elsewhere classified Vocal cord dysfunction Other diseases of vocal cords 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 Asthma with chronic obstructive pulmonary disease (COPD) (Multi) Chronic obstructive asthma, unspecified Fatigue, unspecified type Vitamin D deficiency, unspecified Asthma with chronic obstructive pulmonary disease (COPD) (Multi)- Primary Chronic obstructive asthma, unspecified Anti-pneumococcal polysaccharide antibody deficiency (Multi) Candidiasis of mouth Thrush Candidiasis of mouth Other cardiac arrhythmia Current 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, unspecified whether recurrent (Multi)- Primary Chronic migraine without aura without status migrainosus, not intractable Chronic migraine without aura, intractable, with status migrainosus Dizziness Dizziness and giddiness Asthma with chronic obstructive pulmonary disease (COPD) (Multi)- Primary Chronic obstructive asthma, unspecified GERD without esophagitis Esophageal reflux Anti-pneumococcal polysaccharide antibody deficiency (Multi) ILD (interstitial lung disease) (Multi) Postinflammatory pulmonary fibrosis Asthma with chronic obstructive pulmonary disease (COPD) (Multi)- Primary Chronic obstructive asthma, unspecified Anti-pneumococcal polysaccharide antibody deficiency (Multi) documented in this encounter [facility] Work Phone: Evaluation note* Diagnosis Asthma with chronic obstructive pulmonary disease (COPD) (Multi)- Primary Chronic obstructive asthma, unspecified 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 Cognitive dysfunction Unspecified persistent mental disorders due to conditions classified elsewhere Obstructive sleep apnea Obstructive sleep apnea (adult) (pediatric) Physical deconditioning Muscular wasting and disuse atrophy, not elsewhere classified Vocal cord dysfunction Other diseases of vocal cords 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 Asthma with chronic obstructive pulmonary disease (COPD) (Multi) Chronic obstructive asthma, unspecified Fatigue, unspecified type Vitamin D deficiency, unspecified Asthma with chronic obstructive pulmonary disease (COPD) (Multi)- Primary Chronic obstructive asthma, unspecified Anti-pneumococcal polysaccharide antibody deficiency (Multi) Candidiasis of mouth Thrush Candidiasis of mouth Other cardiac arrhythmia Current 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, unspecified whether recurrent (Multi)- Primary Chronic migraine without aura without status migrainosus, not intractable Chronic migraine without aura, intractable, with status migrainosus Dizziness Dizziness and giddiness Asthma with chronic obstructive pulmonary disease (COPD) (Multi)- Primary Chronic obstructive asthma, unspecified GERD without esophagitis Esophageal reflux Anti-pneumococcal polysaccharide antibody deficiency (Multi) Asthma with chronic obstructive pulmonary disease (COPD) (Multi)- Primary Chronic obstructive asthma, unspecified Anti-pneumococcal polysaccharide antibody deficiency (Multi) documented in this encounter [facility] Work Phone: Evaluation note* Diagnosis Asthma with chronic obstructive pulmonary disease (COPD) (Multi)- Primary Chronic obstructive asthma, unspecified 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 Cognitive dysfunction Unspecified persistent mental disorders due to conditions classified elsewhere Obstructive sleep apnea Obstructive sleep apnea (adult) (pediatric) Physical deconditioning Muscular wasting and disuse atrophy, not elsewhere classified Vocal cord dysfunction Other diseases of vocal cords 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 Asthma with chronic obstructive pulmonary disease (COPD) (Multi) Chronic obstructive asthma, unspecified Fatigue, unspecified type Vitamin D deficiency, unspecified Asthma with chronic obstructive pulmonary disease (COPD) (Multi)- Primary Chronic obstructive asthma, unspecified Anti-pneumococcal polysaccharide antibody deficiency (Multi) Candidiasis of mouth Thrush Candidiasis of mouth Other cardiac arrhythmia Current 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, unspecified whether recurrent (Multi)- Primary Chronic migraine without aura without status migrainosus, not intractable Chronic migraine without aura, intractable, with status migrainosus Dizziness Dizziness and giddiness Asthma with chronic obstructive pulmonary disease (COPD) (Multi)- Primary Chronic obstructive asthma, unspecified GERD without esophagitis Esophageal reflux Anti-pneumococcal polysaccharide antibody deficiency (Multi) Asthma with chronic obstructive pulmonary disease (COPD) (Multi)- Primary Chronic obstructive asthma, unspecified Anti-pneumococcal polysaccharide antibody deficiency (Multi) Chronic migraine without aura without status migrainosus, not intractable- Primary Current 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, unspecified whether recurrent (Multi) documented in this encounter [facility] Work Phone: Evaluation note* Diagnosis Asthma with chronic obstructive pulmonary disease (COPD) (Multi)- Primary Chronic obstructive asthma, unspecified 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 Cognitive dysfunction Unspecified persistent mental disorders due to conditions classified elsewhere Obstructive sleep apnea Obstructive sleep apnea (adult) (pediatric) Physical deconditioning Muscular wasting and disuse atrophy, not elsewhere classified Vocal cord dysfunction Other diseases of vocal cords 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 Asthma with chronic obstructive pulmonary disease (COPD) (Multi) Chronic obstructive asthma, unspecified Fatigue, unspecified type Vitamin D deficiency, unspecified Asthma with chronic obstructive pulmonary disease (COPD) (Multi)- Primary Chronic obstructive asthma, unspecified Anti-pneumococcal polysaccharide antibody deficiency (Multi) Candidiasis of mouth Thrush Candidiasis of mouth Other cardiac arrhythmia Current 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, unspecified whether recurrent (Multi)- Primary Chronic migraine without aura without status migrainosus, not intractable Chronic migraine without aura, intractable, with status migrainosus Dizziness Dizziness and giddiness Asthma with chronic obstructive pulmonary disease (COPD) (Multi)- Primary Chronic obstructive asthma, unspecified GERD without esophagitis Esophageal reflux Anti-pneumococcal polysaccharide antibody deficiency (Multi) Asthma with chronic obstructive pulmonary disease (COPD) (Multi)- Primary Chronic obstructive asthma, unspecified Anti-pneumococcal polysaccharide antibody deficiency (Multi) Chronic migraine without aura without status migrainosus, not intractable- Primary Current 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, unspecified whether recurrent (Multi) Asthma with chronic obstructive pulmonary disease (COPD) (Multi)- Primary Chronic obstructive asthma, unspecified documented in this encounter [facility] Work Phone: Evaluation note* Diagnosis Asthma with chronic obstructive pulmonary disease (COPD) (Multi)- Primary Chronic obstructive asthma, unspecified 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 Cognitive dysfunction Unspecified persistent mental disorders due to conditions classified elsewhere Obstructive sleep apnea Obstructive sleep apnea (adult) (pediatric) Physical deconditioning Muscular wasting and disuse atrophy, not elsewhere classified Vocal cord dysfunction Other diseases of vocal cords 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 Asthma with chronic obstructive pulmonary disease (COPD) (Multi) Chronic obstructive asthma, unspecified Fatigue, unspecified type Vitamin D deficiency, unspecified Asthma with chronic obstructive pulmonary disease (COPD) (Multi)- Primary Chronic obstructive asthma, unspecified Anti-pneumococcal polysaccharide antibody deficiency (Multi) Candidiasis of mouth Thrush Candidiasis of mouth Other cardiac arrhythmia Current 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, unspecified whether recurrent (Multi)- Primary Chronic migraine without aura without status migrainosus, not intractable Chronic migraine without aura, intractable, with status migrainosus Dizziness Dizziness and giddiness Intractable chronic migraine without aura and with status migrainosus- Primary Chronic migraine without aura, intractable, with status migrainosus documented in this encounter [facility] Work Phone: Evaluation note* Diagnosis Asthma with chronic obstructive pulmonary disease (COPD) (Multi)- Primary Chronic obstructive asthma, unspecified 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 Cognitive dysfunction Unspecified persistent mental disorders due to conditions classified elsewhere Obstructive sleep apnea Obstructive sleep apnea (adult) (pediatric) Physical deconditioning Muscular wasting and disuse atrophy, not elsewhere classified Vocal cord dysfunction Other diseases of vocal cords 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 Asthma with chronic obstructive pulmonary disease (COPD) (Multi) Chronic obstructive asthma, unspecified Fatigue, unspecified type Vitamin D deficiency, unspecified Asthma with chronic obstructive pulmonary disease (COPD) (Multi)- Primary Chronic obstructive asthma, unspecified Anti-pneumococcal polysaccharide antibody deficiency (Multi) Candidiasis of mouth Thrush Candidiasis of mouth Other cardiac arrhythmia Current 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, unspecified whether recurrent (Multi)- Primary Chronic migraine without aura without status migrainosus, not intractable Chronic migraine without aura, intractable, with status migrainosus Dizziness Dizziness and giddiness Asthma with chronic obstructive pulmonary disease (COPD) (Multi)- Primary Chronic obstructive asthma, unspecified GERD without esophagitis Esophageal reflux Anti-pneumococcal polysaccharide antibody deficiency (Multi) Asthma with chronic obstructive pulmonary disease (COPD) (Multi)- Primary Chronic obstructive asthma, unspecified Anti-pneumococcal polysaccharide antibody deficiency (Multi) Chronic migraine without aura without status migrainosus, not intractable- Primary Current 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, unspecified whether recurrent (Multi) Intractable chronic migraine without aura and with status migrainosus documented in this encounter [facility] Work Phone: Evaluation note* Diagnosis Asthma with chronic obstructive pulmonary disease (COPD) (Multi)- Primary Chronic obstructive asthma, unspecified 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 Cognitive dysfunction Unspecified persistent mental disorders due to conditions classified elsewhere Obstructive sleep apnea Obstructive sleep apnea (adult) (pediatric) Physical deconditioning Muscular wasting and disuse atrophy, not elsewhere classified Vocal cord dysfunction Other diseases of vocal cords 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 Asthma with chronic obstructive pulmonary disease (COPD) (Multi) Chronic obstructive asthma, unspecified Fatigue, unspecified type Vitamin D deficiency, unspecified Asthma with chronic obstructive pulmonary disease (COPD) (Multi)- Primary Chronic obstructive asthma, unspecified Anti-pneumococcal polysaccharide antibody deficiency (Multi) Candidiasis of mouth Thrush Candidiasis of mouth Other cardiac arrhythmia Current 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, unspecified whether recurrent (Multi)- Primary Chronic migraine without aura without status migrainosus, not intractable Chronic migraine without aura, intractable, with status migrainosus Dizziness Dizziness and giddiness Asthma with chronic obstructive pulmonary disease (COPD) (Multi)- Primary Chronic obstructive asthma, unspecified GERD without esophagitis Esophageal reflux Anti-pneumococcal polysaccharide antibody deficiency (Multi) Asthma with chronic obstructive pulmonary disease (COPD) (Multi)- Primary Chronic obstructive asthma, unspecified Anti-pneumococcal polysaccharide antibody deficiency (Multi) Chronic migraine without aura without status migrainosus, not intractable- Primary Current 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, unspecified whether recurrent (Multi) Chronic migraine without aura without status migrainosus, not intractable- Primary Chronic migraine without aura, intractable, with status migrainosus documented in this encounter [facility] Work Phone: Evaluation note* Diagnosis Asthma with chronic obstructive pulmonary disease (COPD) (Multi)- Primary Chronic obstructive asthma, unspecified 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 Cognitive dysfunction Unspecified persistent mental disorders due to conditions classified elsewhere Obstructive sleep apnea Obstructive sleep apnea (adult) (pediatric) Physical deconditioning Muscular wasting and disuse atrophy, not elsewhere classified Vocal cord dysfunction Other diseases of vocal cords 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 Asthma with chronic obstructive pulmonary disease (COPD) (Multi) Chronic obstructive asthma, unspecified Fatigue, unspecified type Vitamin D deficiency, unspecified Asthma with chronic obstructive pulmonary disease (COPD) (Multi)- Primary Chronic obstructive asthma, unspecified Anti-pneumococcal polysaccharide antibody deficiency (Multi) Candidiasis of mouth Thrush Candidiasis of mouth Other cardiac arrhythmia Current 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, unspecified whether recurrent (Multi)- Primary Chronic migraine without aura without status migrainosus, not intractable Chronic migraine without aura, intractable, with status migrainosus Dizziness Dizziness and giddiness Asthma with chronic obstructive pulmonary disease (COPD) (Multi)- Primary Chronic obstructive asthma, unspecified GERD without esophagitis Esophageal reflux Anti-pneumococcal polysaccharide antibody deficiency (Multi) Asthma with chronic obstructive pulmonary disease (COPD) (Multi)- Primary Chronic obstructive asthma, unspecified Anti-pneumococcal polysaccharide antibody deficiency (Multi) Chronic migraine without aura without status migrainosus, not intractable- Primary Current 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, unspecified whether recurrent (Multi) Chronic migraine without aura without status migrainosus, not intractable- Primary Chronic migraine without aura, intractable, with status migrainosus Asthma with chronic obstructive pulmonary disease (COPD) (Multi)- Primary Chronic obstructive asthma, unspecified Anti-pneumococcal polysaccharide antibody deficiency (Multi) documented in this encounter [facility] Work Phone: Evaluation note* Diagnosis Asthma with chronic obstructive pulmonary disease (COPD) (Multi)- Primary Chronic obstructive asthma, unspecified 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 Cognitive dysfunction Unspecified persistent mental disorders due to conditions classified elsewhere Obstructive sleep apnea Obstructive sleep apnea (adult) (pediatric) Physical deconditioning Muscular wasting and disuse atrophy, not elsewhere classified Vocal cord dysfunction Other diseases of vocal cords 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 Asthma with chronic obstructive pulmonary disease (COPD) (Multi) Chronic obstructive asthma, unspecified Fatigue, unspecified type Vitamin D deficiency, unspecified Asthma with chronic obstructive pulmonary disease (COPD) (Multi)- Primary Chronic obstructive asthma, unspecified Anti-pneumococcal polysaccharide antibody deficiency (Multi) Candidiasis of mouth Thrush Candidiasis of mouth Other cardiac arrhythmia Current 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, unspecified whether recurrent (Multi)- Primary Chronic migraine without aura without status migrainosus, not intractable Chronic migraine without aura, intractable, with status migrainosus Dizziness Dizziness and giddiness Asthma with chronic obstructive pulmonary disease (COPD) (Multi)- Primary Chronic obstructive asthma, unspecified GERD without esophagitis Esophageal reflux Anti-pneumococcal polysaccharide antibody deficiency (Multi) Asthma with chronic obstructive pulmonary disease (COPD) (Multi)- Primary Chronic obstructive asthma, unspecified Anti-pneumococcal polysaccharide antibody deficiency (Multi) Chronic migraine without aura without status migrainosus, not intractable- Primary Current 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, unspecified whether recurrent (Multi) Chronic migraine without aura without status migrainosus, not intractable- Primary Chronic migraine without aura, intractable, with status migrainosus Asthma with chronic obstructive pulmonary disease (COPD) (Multi)- Primary Chronic obstructive asthma, unspecified Anti-pneumococcal polysaccharide antibody deficiency (Multi) Chronic migraine without aura without status migrainosus, not intractable- Primary documented in this encounter [facility] Work Phone: Evaluation note* Diagnosis Asthma with chronic obstructive pulmonary disease (COPD) (Multi)- Primary Chronic obstructive asthma, unspecified 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 Cognitive dysfunction Unspecified persistent mental disorders due to conditions classified elsewhere Obstructive sleep apnea Obstructive sleep apnea (adult) (pediatric) Physical deconditioning Muscular wasting and disuse atrophy, not elsewhere classified Vocal cord dysfunction Other diseases of vocal cords 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 Asthma with chronic obstructive pulmonary disease (COPD) (Multi) Chronic obstructive asthma, unspecified Fatigue, unspecified type Vitamin D deficiency, unspecified Asthma with chronic obstructive pulmonary disease (COPD) (Multi)- Primary Chronic obstructive asthma, unspecified Anti-pneumococcal polysaccharide antibody deficiency (Multi) Candidiasis of mouth Thrush Candidiasis of mouth Other cardiac arrhythmia Current 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, unspecified whether recurrent (Multi)- Primary Chronic migraine without aura without status migrainosus, not intractable Chronic migraine without aura, intractable, with status migrainosus Dizziness Dizziness and giddiness Asthma with chronic obstructive pulmonary disease (COPD) (Multi)- Primary Chronic obstructive asthma, unspecified GERD without esophagitis Esophageal reflux Anti-pneumococcal polysaccharide antibody deficiency (Multi) Asthma with chronic obstructive pulmonary disease (COPD) (Multi)- Primary Chronic obstructive asthma, unspecified Anti-pneumococcal polysaccharide antibody deficiency (Multi) Chronic migraine without aura without status migrainosus, not intractable- Primary Current 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, unspecified whether recurrent (Multi) Chronic migraine without aura without status migrainosus, not intractable- Primary Chronic migraine without aura, intractable, with status migrainosus Asthma with chronic obstructive pulmonary disease (COPD) (Multi)- Primary Chronic obstructive asthma, unspecified Anti-pneumococcal polysaccharide antibody deficiency (Multi) Chronic migraine without aura without status migrainosus, not intractable- Primary ILD (interstitial lung disease) (Multi)- Primary Postinflammatory pulmonary fibrosis documented in this encounter [facility] Work Phone: Evaluation note* Diagnosis Asthma with chronic obstructive pulmonary disease (COPD) (Multi)- Primary Chronic obstructive asthma, unspecified 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 Cognitive dysfunction Unspecified persistent mental disorders due to conditions classified elsewhere Obstructive sleep apnea Obstructive sleep apnea (adult) (pediatric) Physical deconditioning Muscular wasting and disuse atrophy, not elsewhere classified Vocal cord dysfunction Other diseases of vocal cords 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 Asthma with chronic obstructive pulmonary disease (COPD) (Multi) Chronic obstructive asthma, unspecified Fatigue, unspecified type Vitamin D deficiency, unspecified Asthma with chronic obstructive pulmonary disease (COPD) (Multi)- Primary Chronic obstructive asthma, unspecified Anti-pneumococcal polysaccharide antibody deficiency (Multi) Candidiasis of mouth Thrush Candidiasis of mouth Other cardiac arrhythmia Current 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, unspecified whether recurrent (Multi)- Primary Chronic migraine without aura without status migrainosus, not intractable Chronic migraine without aura, intractable, with status migrainosus Dizziness Dizziness and giddiness Asthma with chronic obstructive pulmonary disease (COPD) (Multi)- Primary Chronic obstructive asthma, unspecified GERD without esophagitis Esophageal reflux Anti-pneumococcal polysaccharide antibody deficiency (Multi) Asthma with chronic obstructive pulmonary disease (COPD) (Multi)- Primary Chronic obstructive asthma, unspecified Anti-pneumococcal polysaccharide antibody deficiency (Multi) Chronic migraine without aura without status migrainosus, not intractable- Primary Current 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, unspecified whether recurrent (Multi) Chronic migraine without aura without status migrainosus, not intractable- Primary Chronic migraine without aura, intractable, with status migrainosus Asthma with chronic obstructive pulmonary disease (COPD) (Multi)- Primary Chronic obstructive asthma, unspecified Anti-pneumococcal polysaccharide antibody deficiency (Multi) Chronic migraine without aura without status migrainosus, not intractable- Primary 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 documented in this encounter [facility] Work Phone: Evaluation note* Diagnosis Asthma with chronic obstructive pulmonary disease (COPD) (Multi)- Primary Chronic obstructive asthma, unspecified 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 Cognitive dysfunction Unspecified persistent mental disorders due to conditions classified elsewhere Obstructive sleep apnea Obstructive sleep apnea (adult) (pediatric) Physical deconditioning Muscular wasting and disuse atrophy, not elsewhere classified Vocal cord dysfunction Other diseases of vocal cords 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 Asthma with chronic obstructive pulmonary disease (COPD) (Multi) Chronic obstructive asthma, unspecified Fatigue, unspecified type Vitamin D deficiency, unspecified Asthma with chronic obstructive pulmonary disease (COPD) (Multi)- Primary Chronic obstructive asthma, unspecified Anti-pneumococcal polysaccharide antibody deficiency (Multi) Candidiasis of mouth Thrush Candidiasis of mouth Other cardiac arrhythmia Current 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, unspecified whether recurrent (Multi)- Primary Chronic migraine without aura without status migrainosus, not intractable Chronic migraine without aura, intractable, with status migrainosus Dizziness Dizziness and giddiness Asthma with chronic obstructive pulmonary disease (COPD) (Multi)- Primary Chronic obstructive asthma, unspecified GERD without esophagitis Esophageal reflux Anti-pneumococcal polysaccharide antibody deficiency (Multi) Asthma with chronic obstructive pulmonary disease (COPD) (Multi)- Primary Chronic obstructive asthma, unspecified Anti-pneumococcal polysaccharide antibody deficiency (Multi) Chronic migraine without aura without status migrainosus, not intractable- Primary Current 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, unspecified whether recurrent (Multi) Chronic migraine without aura without status migrainosus, not intractable- Primary Chronic migraine without aura, intractable, with status migrainosus Asthma with chronic obstructive pulmonary disease (COPD) (Multi)- Primary Chronic obstructive asthma, unspecified Anti-pneumococcal polysaccharide antibody deficiency (Multi) Chronic migraine without aura without status migrainosus, not intractable- Primary Intractable chronic migraine without aura and with status migrainosus 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 documented in this encounter [facility] Work Phone: Evaluation note* Diagnosis Asthma with chronic obstructive pulmonary disease (COPD) (Multi)- Primary Chronic obstructive asthma, unspecified 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 Cognitive dysfunction Unspecified persistent mental disorders due to conditions classified elsewhere Obstructive sleep apnea Obstructive sleep apnea (adult) (pediatric) Physical deconditioning Muscular wasting and disuse atrophy, not elsewhere classified Vocal cord dysfunction Other diseases of vocal cords 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 Asthma with chronic obstructive pulmonary disease (COPD) (Multi) Chronic obstructive asthma, unspecified Fatigue, unspecified type Vitamin D deficiency, unspecified Asthma with chronic obstructive pulmonary disease (COPD) (Multi)- Primary Chronic obstructive asthma, unspecified Anti-pneumococcal polysaccharide antibody deficiency (Multi) Candidiasis of mouth Thrush Candidiasis of mouth Other cardiac arrhythmia Current 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, unspecified whether recurrent (Multi)- Primary Chronic migraine without aura without status migrainosus, not intractable Chronic migraine without aura, intractable, with status migrainosus Dizziness Dizziness and giddiness Asthma with chronic obstructive pulmonary disease (COPD) (Multi)- Primary Chronic obstructive asthma, unspecified GERD without esophagitis Esophageal reflux Anti-pneumococcal polysaccharide antibody deficiency (Multi) Asthma with chronic obstructive pulmonary disease (COPD) (Multi)- Primary Chronic obstructive asthma, unspecified Anti-pneumococcal polysaccharide antibody deficiency (Multi) Chronic migraine without aura without status migrainosus, not intractable- Primary Current 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, unspecified whether recurrent (Multi) Chronic migraine without aura without status migrainosus, not intractable- Primary Chronic migraine without aura, intractable, with status migrainosus Asthma with chronic obstructive pulmonary disease (COPD) (Multi)- Primary Chronic obstructive asthma, unspecified Anti-pneumococcal polysaccharide antibody deficiency (Multi) Chronic migraine without aura without status migrainosus, not intractable- Primary 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 Chronic migraine without aura without status migrainosus, not intractable- Primary Intractable chronic migraine without aura and with status migrainosus Dizziness Dizziness and giddiness documented in this encounter [facility] Work Phone: Evaluation note* Diagnosis Asthma with chronic obstructive pulmonary disease (COPD) (Multi)- Primary Chronic obstructive asthma, unspecified 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 Cognitive dysfunction Unspecified persistent mental disorders due to conditions classified elsewhere Obstructive sleep apnea Obstructive sleep apnea (adult) (pediatric) Physical deconditioning Muscular wasting and disuse atrophy, not elsewhere classified Vocal cord dysfunction Other diseases of vocal cords 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 Asthma with chronic obstructive pulmonary disease (COPD) (Multi) Chronic obstructive asthma, unspecified Fatigue, unspecified type Vitamin D deficiency, unspecified Asthma with chronic obstructive pulmonary disease (COPD) (Multi)- Primary Chronic obstructive asthma, unspecified Anti-pneumococcal polysaccharide antibody deficiency (Multi) Candidiasis of mouth Thrush Candidiasis of mouth Other cardiac arrhythmia Current 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, unspecified whether recurrent (Multi)- Primary Chronic migraine without aura without status migrainosus, not intractable Chronic migraine without aura, intractable, with status migrainosus Dizziness Dizziness and giddiness Asthma with chronic obstructive pulmonary disease (COPD) (Multi)- Primary Chronic obstructive asthma, unspecified GERD without esophagitis Esophageal reflux Anti-pneumococcal polysaccharide antibody deficiency (Multi) Asthma with chronic obstructive pulmonary disease (COPD) (Multi)- Primary Chronic obstructive asthma, unspecified Anti-pneumococcal polysaccharide antibody deficiency (Multi) Chronic migraine without aura without status migrainosus, not intractable- Primary Current 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, unspecified whether recurrent (Multi) Chronic migraine without aura without status migrainosus, not intractable- Primary Chronic migraine without aura, intractable, with status migrainosus Asthma with chronic obstructive pulmonary disease (COPD) (Multi)- Primary Chronic obstructive asthma, unspecified Anti-pneumococcal polysaccharide antibody deficiency (Multi) Chronic migraine without aura without status migrainosus, not intractable- Primary 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 Chronic migraine without aura without status migrainosus, not intractable- Primary Intractable chronic migraine without aura and with status migrainosus Dizziness Dizziness and giddiness Hypokalemia- Primary Hypopotassemia Asthma with chronic obstructive pulmonary disease (COPD) (Multi) Chronic obstructive asthma, unspecified documented in this encounter [facility] Work Phone: Hismrrz general Narrative - Reported* Type Description Date Medical History asthma Medical History Hypertension Medical History migraine headache Medical History COPD Medical History anti pneumococcal ppolysaccharid e antibody deficiency Surgical History patella reconstruction Surgical History bilateral knee Surgical History lumbar surgery Surgical History right hip repair 10/2019 Surgical History right hip replacement 01/2020 Sezion Other Hiswjky general Narrative - Reported* Type Description Date Medical History asthma Medical History Hypertension Medical History migraine headache Medical History COPD Medical History anti pneumococcal ppolysaccharid e antibody deficiency Surgical History patella reconstruction Surgical History bilateral knee Surgical History lumbar surgery Surgical History right hip repair 10/2019 Surgical History right hip replacement 01/2020 Surgical History laminectomy Hospitalization History SEE SURGICAL HX Se[facility] Other Hisrzuw general Narrative - Reported* Type Description Date Medical History asthma Medical History Hypertension Medical History migraine headache Medical History COPD Medical History anti pneumococcal ppolysaccharid e antibody deficiency Medical History Interstitial lung disease Surgical History patella reconstruction Surgical History bilateral knee Surgical History lumbar surgery Surgical History right hip repair 10/2019 Surgical History right hip replacement 01/2020 Surgical History laminectomy Surgical History Back injections 12/2022 Hospitalization History SEE SURGICAL HX [facility] Other History of Present illness NarrativeToradol IM and PO after Botox to prevent injection triggered AtglpwnguEN-Lqpdozgoa-Clgkpm 170 DO Work Phone: History of Present illness NarrativeToradol IM and PO after Botox to prevent injection triggered DigqevfmpAF-Xeonntgij-Ozyroy 170 DO Work Phone: History of Present illness NarrativeToradol IM and PO after Botox to prevent injection triggered NlmqacudaAQ-Tqiwfwwdu-Rgwlwf 170 DO Work Phone: History of Present illness NarrativeToradol IM and PO after Botox to prevent injection triggered XnofeoqmqIB-Wabbpxtpy-Klpshb 170 DO Work Phone: History of Present illness Narrative* 61 year M with pmhx including s/p covid, asthma with COPD, chronic migraine with aura on hydrocodone -acetaminophen ( takes it daily or every other day), depression, spondylosis, ANN on 2L O2 at night, stroke in 2018 and has left side weakness. * Patient was diagnosed in 2011 and was lost to follow up. * He recently had a sleep study in 2019 which showed moderate sleep apnea and was started on pap therapy but only used it for a few weeks as he feels that he cannot tolerate sleeping with the mask on his face, he feels that his mask frightens him as he feels that he is in ICU. He does not wish to use pap therapy. He does still have his pap machine. * SLEEP - WAKE SCHEDULE: watches TV and has a timer. * Weekdays/Work/School Days: usual bed time: 10pm , usual wake time: 3:30am , falls asleep at about: 10:05pm and has to drive son to work in am. * Weekends/Off Work/Vacation Days: usual bed time: 10pm, usual wake time: 9-10am and falls asleep at about: 10:05pm . * Class/School/Work Schedule: does not work. * Naps:. weekdays 4am-9am; 3x per week takes afternoon naps. * SLEEP DURATION: 8-10hrs. * SLEEP INITIATION: No problems going to sleep. * SLEEP MAINTENANCE: Denies problematic awakenings. * BREATHING DURING SLEEP: Snoring during sleep. Witnessed apneas. No gasping/choking for air. Nasal congestion during sleep. flonase prn . No mouth breathing during sleep. No nocturnal gastroesophagealreflux. No nocturnal cough. * Sleep Positioning: side and reclined. * MORNING SYMPTOMS: Morning headaches. Morning dry mouth. No morning sore throat. Unrefreshing sleep.Patient denies stimulant use. * DAYTIME: Daytime sleepiness. Fatigue. No drowsy driving. No history of car accidents due to drowsy driving. No near-miss car accidents due to drowsy driving. * CAFFEINE USAGE: No caffeine usage. * HYPERSOMNIA: No sleep paralysis. No cataplexy. No sleep related hallucinations. * LEGS AT NIGHT: No urge to move legs at night. Symptoms are not better with movement. cramping in thighs and calfs and aching better with finding a comfortable position. * MOVEMENTS IN SLEEP: Bruxism (teeth grinding). no treatment . * PARASOMNIA: No sleeptalking. No sleepwalking. Does not act out of dream. Nightmares sometimes . [facility]-[place] [id number] DO Work Phone: History of Present illness Narrative* 61 year old male seen today for a Videonystagmography (VNG) on referral from Neurology. Patient reported that he had a fall on where he hurt his shoulder, his knee, his hip, and his head . Patient reported that he thought he had a concussion, but did not want to go to the Emergency Room. He reported dizziness after the fall. He stated that he has been prescribed Valium, however, ifhe takes too much of it it will make him depressed. He reported that he has had multiple falls overthe last 6 months. He indicated that he has migraines that begin on the right side of his head. He stated that opening his eyes causes his eyes to hurt and cause migraines. He reported having 2 strokes with subsequent limited opening of his left eye. * Medical record review indicates the following reported at his hearing evaluation on 04/19/21: * Reported a long standing history of severe migraines. * Stated around February of 2021 he experienced significant dizziness with vertigo and lose of balance. Stated he will experience seconds of true vertigo, however, he also has a general feeling of beingdizzy and off balance. He reported a significant fall over a year ago, where he blacked out and requ ired a hip replacement. Stated he currently utilizes a cane while walking, however, he will feel slightly nervous especially at home with his cats near his feet. Feels when he goes from a sitting to standing position he will feel very wobbly or even while lying down. Experienced Covid-19 in the spring and mentioned since that time he feels very exhausted and has problems with his breathing. * Reported an established hearing loss and mentioned he purchased hearing aids, however, does not currently wear them. Feels like the hearing aids have too much feedback and he has not worn or other amplifiers in a while. Previous hearing testing was performed on 03/01/18 and indicated a mild gradually sloping to moderate sensorineural hearing loss in each ear. Feels his hearing may be gradually decreasing, however, denied any sudden hearing losses. * History of bilateral non-pulsatile tinnitus. Reported occasionally the tinnitus will create some difficulty sleeping, however, he is typically not bothered by his tinnitus. History of a mild stroke in May of 2017 as well as neuropathy. 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 * Denied any ear surgery, recent ear/sinus infections, heart/kidney problems, or ear drainage.. * Patient's preferred language: Haitian * Preferred language of the parent, legal guardian or surrogate decision-maker of this minor or incapacitated patient: Haitian * No overt signs of domestic violence/neglect/abuse. * No referral made to Fence Erector Supervisor. * Pain not interfering with optimal level of function or ability to assess and/or treat. * Pain Scale rank: 0/10 * Pain Scale used: Numeric * No referral made to primary care provider (PCP). * Factors/Barriers influencing patient's ability to complete assessment or learn: none. * Person taught: patient. * Readiness to learn: no barriers. * Results of Teaching/Counseling: verbalize recall / understanding and teaching complete. LN-Iaoumztvj-Hcwlrju 1927U Work Phone: History of Present illness Narrative* The virtual visit conducted with Audio and Video * Verbal consent was given for the following virtual visit. The visit below was conducted because of restrictions due to the COVID-19 pandemic. All issues discussed and addressed below were done so without a physical examination. If it was felt the patient needed be seen in clinic in person they weredirected there. * Covid-19 infection date: July 2020 (sx: cough, SOB, fever hospitalized at [facility] and treatdwith Remdesivir, Decadron, Antibiotics, was on supplemental O2 for 10 days following hospitalization) * Covid-19 vaccine status: Pfizer 02/2021, 08/2021 * Occupation: retired * Current Care Providers: PCP Dr. Rayo, Pulmonary Dr. Magana, Immunology Dr. Brown, NeurologyDr. Matthews and Dr. Miller, Pain Management Dr. Jiménez, Cardiology Dr. Park * Initial survey scores 12/2020: * PHQ-9: 18 * MARY-7: 10 * Sleep Wellness: 7 * FSS average: 6 * Modified ECog average: 3 * MOCA: 22/30 * 60 yo man with h/o COVID-19 pneumonia in July 2020, asthma, chronic fatigue, depression, HTN, essential tremor, LLE DVT about 4 years ago (on previous AC), GERD, hyperlipidemia, ANN not tolerated ofCPAP on 2L o2 at night, polyneuropathy, vertigo, migraines, dysphagia, CVA in 2018 with residual gloria garcia, [facility] with c/o shortness of breath, fatigue, brain fog, depression, insomnia. * He switched today s appointment to virtual due to GI illness that he caught from his family member,son is currently sick as well * Symptoms started yesterday, has been having diarrhea and nausea since then * Long-COVID symptoms are ongoing * PITTS is getting worse, now off steroids, following Dr. Magana and Stephanie for asthma, next FUV is in 2 weeks * Brain fog is still horrible, feels this could be related to changes in headache medications so he discussed with Neurologist to wait for changes * Feels that brain fog could be worsening * He also asked pain medicine provider to keep current regimen for consistency * Needs less [place], dosage is decreased to BID prn * He is hoping that not changing medications for some time will help brain fog improved, he is worried that brain fog is related to changes in his medications * Was in the hospital one month ago due to asthma exacerbation, stress test is scheduled for next week which will complicate his infusion appointment timing, he anticipate that delay in infusion will cause worsening of symptoms * Scheduled to follow-up with flavorer this month as well, following stress test * He was seen by ENT for inspire therapy consideration, he is not scheduled yet * He is feeling more depressed, anniversary of his daughter s is coming up * He would like to find therapist, having difficulty establishing care with someone who has availability for new patients * Former support system he had is no longer available * Most of august he has not been able to sleep, he is up all night * Dysphagia is much improved, back to baseline * Fatigue/exhaustion is ongoing, cannot enjoy activities as much as he usually does, things take him longer * Relevant Hx: * -03/2021 sleep medicine referred to ENT for inspire therapy * -05/2021 audiology for dizziness and hearing loss, patient was unable to complete testing as he could not keep his eyes open, gaze test and OPKs were normal, recommended follow up with neurology. 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 Referred to PCP for fatigue and dizziness. * -08/2021 Neurology renewed aimovig and topiramate for chronic migraine, gave toradol in office * Imaging: * -12/2020 CTA chest shows no PE, small left pleural effusion, extensive bilateral upper lobe GGO * -02/2021 MRi brain shows mild senescent changes otherwise unremarkable * -03/2021 PFTs revealed moderate restriction with a bronchodilator response, DLCO severely reduced consistent with interstitial change son the CT scan probably post-COVID and 6mwt * -04/2021 audiology testing shows normal middle ear function and mild gradually sloping to moderate sensorineural hearing loss bilaterally * -06/2021 HRCT shows overall stable faint GGO and parenchymal bands, no fibrosis, mild coronary artery calcifications, trace pericardial effusion * -07/2021 echocardiogram shows mild concentric LV hypertrophy, EF 60-65%, trace aortic regurgitation, trace tricuspid regurgitation * Blood work: * -12/2020 D-Dimer 607 * -01/2021 immunoglobulins, diphtheria antibody assay, tetanus Ab, H influenza B IgG, strep pneumococcal IgG Ab, SARS-CoV-2 nucleocapsid IgG Ab positive, immunodeficiency profile * -05/2021 CBC/D with Hb 10.3, ESR, CRP, CMP with K 3.1, Iron studies low, BNP, TSH, AM cortisol 3.2,Vitamin B12, RF, MIRNA * -08/2021 CMP with creatinine 1.51 * Exercise: less often * Diet: healthy less often * Weight pre/post-COVID: currently 182lbs * Substance use: denies * Social: * Family Hx: HTN, alzheimer s disease, CAD, parkinson s disease, DM * Surgial Hx: hip fracture repair, hip replacement, knee surgeries, spine surgeries MG-Pulm Sleep-[place] [address] [place] Work Phone: History of Present illness NarrativeToradol IM and PO after Botox to prevent injection triggered FirnohasySZ-Wzyvxilwh-Ryjthv 170 DO Work Phone: History of Present illness NarrativeToradol IM and PO after Botox to prevent injection triggered KsxuxmmymNK-Ubnjegezo-Dgyrzi 170 DO Work Phone: History of Present illness NarrativeToradol IM and PO after Botox to prevent injection triggered QgepvwnyfFW-Utnjbgdon-Iglnxu 170 DO Work Phone: History of Present illness NarrativeToradol IM after Botox to prevent injection triggered JlqmldfgqNS-Qcsqgcxqg-Seyukt 170 DO Work Phone: History of Present illness Narrative* The virtual visit conducted with Audio and Video * Verbal consent was given for the following virtual visit, patient is currently located in [place]. Thevisit below was conducted because of restrictions due to the COVID-19 pandemic. All issues discussed and addressed below were done so without a physical examination. If it was felt the patient neededbe seen in clinic in person they were directed there. * Covid-19 infection date: July 2020 (sx: cough, SOB, fever hospitalized at [facility] and treatdwith Remdesivir, Decadron, Antibiotics, was on supplemental O2 for 10 days following hospitalization) * Covid-19 vaccine status: Pfizer 02/2021, 08/2021, 06/2022 * Occupation: retired * Current Care Providers: PCP Dr. Rayo, Pulmonary Dr. Magana, Immunology Dr. Brown, NeurologyDr. Matthews and Dr. Miller, Pain Management Dr. Jiménez, Cardiology Dr. Park, ENT Dr. Ruffin [facility], Hematology at [facility], ENT at [facility] * Survey scores: 12/2020 -> 08/2021 -> 05/2022 -> 10/2022 * PHQ-9: 18 -> 18 -> 22 -> 17 * MARY-7: 10 -> 10 -> 18 -> 18 * Sleep Wellness: 7 -> 7 -> 7 -> 11 * FSS average: 6 -> 6 -> 6 -> 5.889 * Modified ECog average: 3 -> 3 -> 3.333 -> 3.25 * MOCA: 22/30 (12/2020) -> (05/2022) * Overall Health: 15 -> 40 -> 61 -> 60 * 62yo man with h/o COVID-19 pneumonia in July 2020, asthma, chronic fatigue, depression, HTN, essential tremor, LLE DVT about 4 years ago (on previous AC), GERD, hyperlipidemia, ANN not tolerated of CPAP on 2L o2 at night, polyneuropathy, vertigo, migraines, dysphagia, CVA in 2018 with residual weak ness, [facility] with c/o Cognitive and memory changes,fatigue, insomnia, shortness of breath, cough, anxiety, depression, musculoskeletal pain, weakness. * Headaches have been worse due to weather changes, following with neurology for this, switching to new medication * Some time last month had an appointment with Dr. Good at Neuropsychology, follow up for that is scheduled for next week * Testing was rough in regards to fatigue * Fatigue is still there big time * Still having trouble with his voice and throat, was referred to ENT who found that he has vocal cord dysfunction * Was referred to speech therapy, has not started this yet as transportation to [place] is challenging * His son lost his job a few months ago, finance have been challenging, new job at [employer] in progress * Depression has been bad, had a week when he did not want to get out of bed, PCP increased Effexor dose * Has a nurse practitioner to comes to his house once per month to check on him * Still talking to therapist as well, that has been somewhat helpful but still in a funk over losing his daughter and not being able to keep up with the housework due to poor health and not being able to afford cleaning services currently * Has not scheduled with Dr. Zimmerman, Dr. Good recommended to wait off until after appointment to follow-up on Neuropsych testing * Pain has increased, recently changed pain management team per neurosurgery recommendation, now going to [facility], received first injection in his back the last week of October, next follow-up is in two weeks. Suspecting he will need 20 injections over the next 1.5 years. * Finished with Physical Therapy, waiting for Neurosurgery to obtain all records regarding next steps * Brace needs to be readjusted after it was affected by fall recently * Still having horrible problems with shortness of breath, will be taken off Trelegy and nebulizer rudy replaced by one medication covering both of these * Relevant Hx: * -03/2021 sleep medicine referred to ENT for inspire therapy * -05/2021 audiology for dizziness and hearing loss, patient was unable to complete testing as he could not keep his eyes open, gaze test and OPKs were normal, recommended follow up with neurology. 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 * -09/2022 Neurology continuing current medications for migraines * -09/2022 Pulmonary notes patient is doing well from respiratory perspective, no changes in medications * -11/2022 Immunology notes antipneumococcal polysaccharide antibody deficiency is well controlled onGamunex infusions, asthma/COPD is controlled, continue inhalers per pulmonary * Imaging: * -12/2020 CTA chest shows no PE, small left pleural effusion, extensive bilateral upper lobe GGO * -02/2021 MRi brain shows mild senescent changes otherwise unremarkable * -03/2021 PFTs revealed moderate restriction with a bronchodilator response, DLCO severely reduced consistent with interstitial change son the CT scan probably post-COVID and 6mwt * -04/2021 audiology testing shows normal middle ear function and mild gradually sloping to moderate sensorineural hearing loss bilaterally * -06/2021 HRCT shows overall stable faint GGO and parenchymal bands, no fibrosis, mild coronary artery calcifications, trace pericardial effusion * -07/2021 echocardiogram shows mild concentric LV hypertrophy, EF 60-65%, trace aortic regurgitation, trace tricuspid regurgitation * -11/2021 CXR shows low lung volumes with similar appearing atelectasis at the left lung base compared to prior * -12/2021 overnight oximetry * -04/2022 CT head unremarkable * -04/2022 HRCT shows persistent diffuse GG and bandlike opacities throughout the lungs similar to 202, findings of multifocal air trapping, mild coronary artery calcification * -05/2022 EGD shows patchy mild mucosal changes characterized by subtle scarring and altered texturefound in the esophagus and stomach, biopsies taken * -07/2022 CT sinus normal * -08/2022 CT head and C-spine normal * -08/2022 X-ray hip without fracture, mild degenerative changes * Blood work: * -12/2020 D-Dimer 607 * -01/2021 immunoglobulins, diphtheria antibody assay, tetanus Ab, H influenza B IgG, strep pneumococcal IgG Ab, SARS-CoV-2 nucleocapsid IgG Ab positive, immunodeficiency profile * -05/2021 CBC/D with Hb 10.3, ESR, CRP, CMP with K 3.1, Iron studies low, BNP, TSH, AM cortisol 3.2,Vitamin B12, RF, MIRNA * -08/2021 CMP with creatinine 1.51 * -01/2022 CBC/D shows Hb 9.5, iron low, ferritin 6 * -05/2022 CBC with Hb 13.8, LDH, iron studies, Ferritin 185 * -06/2021 Respiratory allergy panel * -08/2022 CMP with Na 133, CBC/D, iron studies, Ferritin 110, Immunoglobulin IgG * Exercise: less often * Diet: healthy less often * Weight pre/post-COVID: currently 182lbs * Substance use: denies * Social: * Family Hx: HTN, alzheimer s disease, CAD, parkinson s disease, DM * Surgial Hx: hip fracture repair, hip replacement, knee surgeries, spine surgeries [facility] [address] [place] Work Phone: History of Present illness NarrativeToradol IM after Botox to prevent injection triggered [id number] 170 DO Work Phone: History of Present illness NarrativeToradol IM after Botox to prevent injection triggered [id number] 170 DO Work Phone: Hospital course Narrative No data available for this section [facility] Hospital Discharge instructions Additional Instructions You are scheduled for an outpatient LEXISCAN STRESS TEST at [facility] in the [place] Office on 08/14/2021 at 7:30am- see instructions. Continue to check her potassium level as previously done prior to admission. You are taking multiple medications that could interact with each other and they can cause a side effects. Please ask your primary care doctor and other outpatient specialists to simplify and minimize your medications regimen to prevent development of side effect or drug drug interactions Taking Celebrex at 400 mg twice a day is for time the recommended maximum dose. This may have caused your kidney function to decline. Please do not take more than 200 mg in a 24 hours. Topamax can cause you to have RTA (acid buildup in your system ) I reduced your Topamax dose. Your acid level may need to be watched closely in the outpatient setting by doing routine blood test ( called BMP ) to be arranged by your primary care doctor. If you continue to build up acid in your system, Topamax may need to be discontinued. I may not have addressed or treated all of your medical illnesses or the abnormal blood work or imaging studies during this hospitalization. Please ask your primary care provider to obtain [facility] records entirely to follow up on all of the abnormal physical, laboratory, and imaging findings that I have not addressed. Please return back to the emergency room or seek medical attention if your symptoms worsen or return. Discharging you from [facility] does not mean that your medical care ends here and now. You may still need additional monitoring, work up, investigation, and treatment plan to be handled from this point on by out patient providers including your primary care provider and specialists. For any medication question, please contact your retail pharmacist or your primary care provider. Thank you.[facility] Work Phone: Hospital Discharge instructions No data available for this section [facility] Additional Instructions Please follow-up with the concussion clinic as you are already indicated to do. Return the emergency department if you develop any one-sided weakness, chest pain, shortness of breath, severe worsening or headache, intractable nausea or vomiting, seizure-like activity or any other general concerns[facility] Work Phone: Instructions* Name Dates Details Instructions not documented [id number] 170 DO Work Phone: Progress note Author Melissa Wilson [facility] March 18, 2022 3:27pm Note Date/Time March 18, 2022 2:26pm [facility] at [address] [address] Hem/Onc Follow Up Note - OP Signed Patient: Velia Bagley MR#: [id number] : 1960 Acct:[id number] Age/Sex: 62 / M Type: REG RCR Copies to: Rachel Rayo MD~ Subjective Date/Time of Service: Date of Service: 03/18/2022 Time of Service: 14:25 Chief Complaint: Patient is here for a referral from Dr Rachel Rayo for anemia. HPI: 61-year-old white gentleman seen for evaluation and management of iron deficiency anemia. He had CBC that showed microcytosis and elevated RDW. His ferritin is very low. TIBC is not in the high normal or elevated range. Most likely since there is a component of anemia of chronic disease. He has been taking oral iron supplements associated with upset stomach and constipation thatprohibited him from compliance. He also takes B12. He stated that this has notmade any difference in terms of symptom improvement. He complains of fatigue and occasional exertional dyspnea. He had symptoms of acid reflux. He has no family history of colon cancer. He had EGD and colonoscopy according to him about 5 years ago 03/18/22 felt slightly better after his iron infusions, but not much energy still occasionally has dark stool, not often though brain fog from [place] is working to get colonoscopy and EGD at - is awaiting call back. Will send referral for him today has had a migraine since , is causing him to be nauseated. Is scheduled to get a Toradol shot tomorrow will get drenching night sweats 3-4 nights/week. These started about 2 months ago. Feels like he is losing weight, has lost maybe 5lbs since Jan. He is staying hydrated, is eating 1 decent meal per day and maybe a small snack otherwise labs improved but still with low iron saturation and ferritin. [facility] - Medical History Medical History: Medical History (Last Reviewed 01/14/22 @ 10:17 by Karol Berman) Anemia Anxiety Asthma Chronic back pain COPD (chronic obstructive pulmonary disease) COVID COVID-19 jacqueline greene CVA (cerebral vascular accident) Depression GERD (gastroesophageal reflux disease) Hypertension Immunocompromised Leukocytosis Migraines On home oxygen therapy Peripheral neuropathy Pernicious anemia Pneumonia - Surgical History Surgical History: Surgical History (Last Reviewed 01/14/22 @ 10:17 by Karol Berman) H/O knee surgery Onset Date: ~1973 History of back surgery Onset Date: ~2015 L4-5 laminectomy History of right hip replacement Onset Date: ~2019 - Family History Family History: Family History (Last Updated 01/14/22 @ 10:18 by Karol Berman) Other No significant family history - Social History Smoking Status: Never smoker Substance Use Type: None Home Medications & Allergies Allergies avocado Allergy (Verified 03/18/22 14:31) Swelling baclofen Allergy (Verified 03/18/22 14:31) Weakness candesartan Allergy (Verified 03/18/22 14:31) Unknown Reaction cefdinir Allergy (Verified 03/18/22 14:31) Unknown Reaction chocolate flavor Allergy (Verified 03/18/22 14:31) Headache ciprofloxacin [From Cipro] Allergy (Verified 03/18/22 14:31) Rash diazepam [From Valium] Allergy (Verified 03/18/22 14:31) Unknown Reaction diltiazem Allergy (Verified 03/18/22 14:31) Unknown Reaction grass pollen Allergy (Verified 03/18/22 14:31) Unknown Reaction Sulfa (Sulfonamide Antibiotics) Allergy (Verified 03/18/22 14:31) Unknown Reaction indomethacin [From Indocin] Adverse Reaction (Verified 03/18/22 14:31) Hypotension Penicillins Adverse Reaction (Verified 03/18/22 14:31) Rash propranolol [From Inderal LA] Adverse Reaction (Verified 03/18/22 14:31) Hypotension Home Medications alprazolam 0.25 mg tablet 40 mg PO BID PRN Anxiety 07/29/21 [History Confirmed 03/18/22] amitriptyline 75 mg tablet 25 mg PO QHS 07/29/21 [History Confirmed 03/18/22] benralizumab 30 mg/mL subcutaneous syringe (Fasenra) 30 mg subcut DIRECTED 07/29/21 [History Confirmed 03/18/22] budesonide 0.5 mg/2 mL suspension for nebulization 0.5 mg inhalation BID 07/29/21 [History Confirmed 03/18/22] erenumab-aooe 140 mg/mL subcutaneous auto-injector (Aimovig Autoinjector) 140 mgsubcut DIRECTED 07/29/21 [History Confirmed 03/18/22] fluticasone propionate 50 mcg/actuation nasal spray,suspension 50 mcg intranasalDAILY 07/29/21 [History Confirmed 03/18/22] montelukast 10 mg tablet (Singulair) 10 mg PO DAILY 07/29/21 [History Confirmed 03/18/22] omeprazole 20 mg capsule,delayed release 20 mg PO BID 07/29/21 [History Confirmed 03/18/22] potassium chloride 20 mEq tablet,extended release(part/cryst) (Klor-Con M) 20 meq PO QID 07/29/21 [History Confirmed 03/18/22] spironolactone 25 mg tablet 25 mg PO DAILY 07/29/21 [History Confirmed 03/18/22] tamsulosin 0.4 mg capsule 0.8 mg PO QHS 07/29/21 [History Confirmed 03/18/22] topiramate 200 mg tablet 100 mg PO DIRECTED 07/29/21 [History Confirmed 03/18/22] venlafaxine 150 mg capsule,extended release 24 hr 75 mg PO BID 07/29/21 [History Confirmed 03/18/22] verapamil 120 mg tablet 120 mg PO DAILY 07/29/21 [History Confirmed 03/18/22] celecoxib 200 mg capsule 200 mg PO DAILY #1 cap 07/30/21 [Rx Confirmed 03/18/22] albuterol sulfate 90 mcg/actuation aerosol inhaler (ProAir HFA) 2 puff inhalation Q4H PRN breathing 01/02/22 [History Confirmed 03/18/22] atorvastatin 40 mg tablet 40 mg PO DAILY 01/02/22 [History Confirmed 03/18/22] docusate sodium 100 mg capsule 100 mg PO BID PRN Constipation 01/02/22 [History Confirmed 03/18/22] losartan 25 mg tablet 100 mg PO DAILY 01/02/22 [History Confirmed 03/18/22] metoprolol succinate 25 mg tablet,extended release 24 hr (Toprol XL) 25 mg PO DAILY 01/02/22 [History Confirmed 03/18/22] rizatriptan 10 mg tablet 10 mg PO DIRECTED 01/02/22 [History Confirmed 03/18/22] umeclidinium 62.5 mcg/actuation blister powder for inhalation (Incruse Ellipta) 1 inh inhalation DAILY 01/02/22 [History Confirmed 03/18/22] folic acid 1 mg tablet 1 mg PO DAILY #30 tabs 01/14/22 [Rx Confirmed 03/18/22] pregabalin 100 mg capsule (Lyrica) 100 mg PO BID 03/18/22 [History Confirmed 03/18/22] Objective - Height/Weight Height/Weight: Height 5 ft 9 in Weight 88.496 kg - Pain Head Pain Intensity: 5 Physical Exam Narrative: GENERAL APPEARANCE: Well developed, well nourished, in no acute distress. SKIN: Inspection of the skin reveals no rashes, ulcerations or petechiae. HEENT: The sclerae were anicteric and conjunctivae were pink and moist. EOMI, PERRLA. The oral mucosa is moist and clear. NECK: Supple and symmetric. There was no thyroid enlargement, and no tenderness,or masses were felt. LYMPHATIC: No cervical, supraclavicular, axillary or inguinal adenopathy noted on exam LUNGS: Normal breath sounds on auscultation without rales, rhonchi, or crackles. CARDIOVASCULAR: S1 and S2, regular rate and rhythm, no murmurs, gallops, rubs. ABDOMEN: Soft, nontender, bowel sounds normal. No hepatosplenomegaly. No mass palpated. MUSCULOSKELETAL: Gait was normal. There was no tenderness or effusions noted. Muscle strength and tone were normal. EXTREMITIES: No cyanosis, clubbing or edema. NEUROLOGIC: Alert and oriented x 3. Normal affect. Results - Labs Labs: Diagram of Most Recent CBC and CMP 03/13/22 13:43 Labs - Last 7 Days 03/13/22 13:43: Iron 51, TIBC 367, Iron Saturation 13.0 L, Transferrin 262, Ferritin 20.4 L 03/13/22 13:43: Corrected WBC 4.5, Uncorrected WBC Count 4.5, RBC 5.50, Hgb 13.6, Hct 43.2, MCV 78.5 L, MCH 24.8 L, MCHC 31.6 L, RDW 28.1 H, Plt Count 223, MPV 8.5, Neut % (Auto) 66.1, Lymph % (Auto) 26.1, [place] % (Auto) 7.6, Eos % (Auto) 0.0, Baso % (Auto) 0.2, Neut # (Auto) 3.0, Lymph # (Auto) 1.2, [place] # (Auto) 0.3, Eos # (Auto) 0.0, Baso # (Auto) 0.0, Nucleated RBC % (auto) 0.1, Platelet Estimate Normal, Plt Morphology Comment Normal, RBC Morphology N/A, Hypochromasia Slight, Microcytosis Slight Assessment and Plan (1) 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c) Iron deficiency anemia d/t chronic blood loss symptomatic with moderately severs GI intolerance to oral iron supplementation Given IV Venofer Jan 2022 Will offer additional IV Venofer in Mar 2022 as counts did not completely normalize after initial dosing in Jan Colonoscopy and EGD strongly recommended by Dr. Moran at consult Will refer to gastroenterology per patient's request Continues to get IVIG infusions about every 4-6wks thru immunology. Next dose is due in the upcoming weeks, but he has been dealing with delays d/t insurance issues - Time with Patient Coordination of Care & Counseling Time: Greater than 50% of time spent with patient was for coordination of care (as documented) and [id number] counseling of patient and/or family. Dictated By: Melissa Wilson APRN DD/ [id number] Signed By: <Electronically signed by LUIS Wilson> 03/18/22 1527 [facility] Work Phone: Progress note Author Melissa Wilson [facility] May 16, 2022 11:50am Note Date/Time May 16, 2022 1 1:45am [facility] [place] [address] Hem/Onc Follow Up Note - OP Signed Patient: Velia Bagley MR#: [id number] : 1960 Acct:[id number] Age/Sex: 62 / M Type: REG RCR Copies to: Rachel Rayo MD~ Subjective Date/Time of Service: Date of Service: 05/16/2022 Time of Service: 11:44 Chief Complaint: Patient is here for a 2 month follow up, with labs 05/08/2022 for review. No concerns voiced at this time. HPI: 61-year-old white gentleman seen for evaluation and management of iron deficiency anemia. He had CBC that showed microcytosis and elevated RDW. His ferritin is very low. TIBC is not in the high normal or elevated range. Most likely since there is a component of anemia of chronic disease. He has been taking oral iron supplements associated with upset stomach and constipation thatprohibited him from compliance. He also takes B12. He stated that this has notmade any difference in terms of symptom improvement. He complains of fatigue and occasional exertional dyspnea. He had symptoms of acid reflux. He has no family history of colon cancer. He had EGD and colonoscopy according to him about 5 years ago 03/18/22 felt slightly better after his iron infusions, but not much energy still occasionally has dark stool, not often though brain fog from [place] is working to get colonoscopy and EGD at - is awaiting call back. Will send referral for him today has had a migraine since , is causing him to be nauseated. Is scheduled to get a Toradol shot tomorrow will get drenching night sweats 3-4 nights/week. These started about 2 months ago. Feels like he is losing weight, has lost maybe 5lbs since Jan. He is staying hydrated, is eating 1 decent meal per day and maybe a small snack otherwise labs improved but still with low iron saturation and ferritin. 05/16/22 he continues with balance issues and has had multiple falls since . He is scheduled to see ortho and neurology in the next 2wks he has gained weight and is eating, drinking ok no new complaints otherwise, other symptoms stable labs stable, iron ok, no need for infusions [facility] - Medical History Medical History: Medical History (Last Reviewed 04/16/22 @ 10:58 by Rosa Gregorio RN) Anemia Anxiety Asthma Chronic back pain COPD (chronic obstructive pulmonary disease) COVID COVID-19 jacqueline greene CVA (cerebral vascular accident) Depression GERD (gastroesophageal reflux disease) Hypertension Immunocompromised Leukocytosis Migraines On home oxygen therapy Peripheral neuropathy Pernicious anemia Pneumonia - Surgical History Surgical History: Surgical History (Last Reviewed 04/16/22 @ 10:58 by Rosa Gregorio RN) H/O knee surgery Onset Date: ~1973 History of back surgery Onset Date: ~2015 L4-5 laminectomy History of right hip replacement Onset Date: ~2019 - Family History Family History: Family History (Last Updated 01/14/22 @ 10:18 by Karol Berman) Other No significant family history - Social History Smoking Status: Never smoker Substance Use Type: None Home Medications & Allergies Allergies avocado Allergy (Verified 05/16/22 11:12) Swelling baclofen Allergy (Verified 05/16/22 11:12) Weakness candesartan Allergy (Verified 05/16/22 11:12) Unknown Reaction cefdinir Allergy (Verified 05/16/22 11:12) Unknown Reaction chocolate flavor Allergy (Verified 05/16/22 11:12) Headache ciprofloxacin [From Cipro] Allergy (Verified 05/16/22 11:12) Rash diazepam [From Valium] Allergy (Verified 05/16/22 11:12) Unknown Reaction diltiazem Allergy (Verified 05/16/22 11:12) Unknown Reaction grass pollen Allergy (Verified 05/16/22 11:12) Unknown Reaction Sulfa (Sulfonamide Antibiotics) Allergy (Verified 05/16/22 11:12) Unknown Reaction indomethacin [From Indocin] Adverse Reaction (Verified 05/16/22 11:12) Hypotension Penicillins Adverse Reaction (Verified 05/16/22 11:12) Rash propranolol [From Inderal LA] Adverse Reaction (Verified 05/16/22 11:12) Hypotension Home Medications alprazolam 0.25 mg tablet 40 mg PO BID PRN Anxiety 07/29/21 [History Confirmed 05/16/22] amitriptyline 75 mg tablet 25 mg PO QHS 07/29/21 [History Confirmed 05/16/22] benralizumab 30 mg/mL subcutaneous syringe (Fasenra) 30 mg subcut DIRECTED 07/29/21 [History Confirmed 05/16/22] budesonide 0.5 mg/2 mL suspension for nebulization 0.5 mg inhalation BID 07/29/21 [History Confirmed 05/16/22] erenumab-aooe 140 mg/mL subcutaneous auto-injector (Aimovig Autoinjector) 140 mgsubcut DIRECTED 07/29/21 [History Confirmed 05/16/22] fluticasone propionate 50 mcg/actuation nasal spray,suspension 50 mcg intranasalDAILY 07/29/21 [History Confirmed 05/16/22] montelukast 10 mg tablet (Singulair) 10 mg PO DAILY 07/29/21 [History Confirmed 05/16/22] omeprazole 20 mg capsule,delayed release 20 mg PO BID 07/29/21 [History Confirmed 05/16/22] potassium chloride 20 mEq tablet,extended release(part/cryst) (Klor-Con M) 20 meq PO QID 07/29/21 [History Confirmed 05/16/22] spironolactone 25 mg tablet 25 mg PO DAILY 07/29/21 [History Confirmed 05/16/22] tamsulosin 0.4 mg capsule 0.8 mg PO QHS 07/29/21 [History Confirmed 05/16/22] topiramate 200 mg tablet 100 mg PO DIRECTED 07/29/21 [History Confirmed 05/16/22] venlafaxine 150 mg capsule,extended release 24 hr 75 mg PO BID 07/29/21 [History Confirmed 05/16/22] verapamil 120 mg tablet 120 mg PO DAILY 07/29/21 [History Confirmed 05/16/22] celecoxib 200 mg capsule 200 mg PO DAILY #1 cap 07/30/21 [Rx Confirmed 05/16/22] albuterol sulfate 90 mcg/actuation aerosol inhaler (ProAir HFA) 2 puff inhalation Q4H PRN breathing 01/02/22 [History Confirmed 05/16/22] atorvastatin 40 mg tablet 40 mg PO DAILY 01/02/22 [History Confirmed 05/16/22] docusate sodium 100 mg capsule 100 mg PO BID PRN Constipation 01/02/22 [History Confirmed 05/16/22] losartan 25 mg tablet 100 mg PO DAILY 01/02/22 [History Confirmed 05/16/22] metoprolol succinate 25 mg tablet,extended release 24 hr (Toprol XL) 25 mg PO DAILY 01/02/22 [History Confirmed 05/16/22] rizatriptan 10 mg tablet 10 mg PO DIRECTED 01/02/22 [History Confirmed 05/16/22] umeclidinium 62.5 mcg/actuation blister powder for inhalation (Incruse Ellipta) 1 inh inhalation DAILY 01/02/22 [History Confirmed 05/16/22] folic acid 1 mg tablet 1 mg PO DAILY #30 tabs 01/14/22 [Rx Confirmed 05/16/22] pregabalin 100 mg capsule (Lyrica) 100 mg PO BID 03/18/22 [History Confirmed 05/16/22] Objective - Height/Weight Height/Weight: Height 5 ft 9 in Weight 90.2 kg - Vital Signs Vital Signs: 05/16/22 11:13 Pulse Rate [Right Brachial] 64 Respiratory Rate 18 Blood Pressure [Right Arm] 154/94 H 02 Sat by Pulse Oximetry 99 Oxygen Delivery Method Room Air - Pain Head Pain Intensity: 5 - Distress Screening Distress Screen Results: RN Distress Screening Start: 01/22/22 14:05 Freq: Q30D Status: Active Protocol: Document 03/26/22 11:46 KB (Rec: 03/26/22 11:47 KB [id number]) Distress Screening Distress score of 4 or more discussed Yes with patient? Distress screening follow up: Patient requesting referral to [facility]. Referal order placed . Physical Exam Narrative: GENERAL APPEARANCE: Well developed, well nourished, in no acute distress. SKIN: Inspection of the skin reveals no rashes, ulcerations or petechiae. HEENT: The sclerae were anicteric and conjunctivae were pink and moist. EOMI, PERRLA. The oral mucosa is moist and clear. NECK: Supple and symmetric. There was no thyroid enlargement, and no tenderness,or masses were felt. LYMPHATIC: No cervical, supraclavicular, axillary or inguinal adenopathy noted on exam LUNGS: Normal breath sounds on auscultation without rales, rhonchi, or crackles. CARDIOVASCULAR: S1 and S2, regular rate and rhythm, no murmurs, gallops, rubs. ABDOMEN: Soft, nontender, bowel sounds normal. No hepatosplenomegaly. No mass palpated. MUSCULOSKELETAL: Gait was normal. There was no tenderness or effusions noted. Muscle strength and tone were normal. EXTREMITIES: No cyanosis, clubbing or edema. NEUROLOGIC: Alert and oriented x 3. Normal affect. Results - Labs Labs: Diagram of Most Recent CBC and CMP 05/08/22 12:49 05/08/22 12:49 Assessment and Plan (1) 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c) Iron deficiency anemia d/t chronic blood loss symptomatic with moderately severs GI intolerance to oral iron supplementation Given IV Venofer Jan 2022 Will offer additional IV Venofer in Mar 2022 as counts did not completely normalize after initial dosing in JanMay 2022 iron studies ok, no need for additional iron Colonoscopy and EGD strongly recommended by Dr. Moran at consult Will refer to gastroenterology per patient's request EGD done May 2022 without evidence of bleeding. Continues to get IVIG infusions about every 4-6wks thru immunology. - Time with Patient Coordination of Care & Counseling Time: Greater than 50% of time spent with patient was for coordination of care (as documented) and [id number] counseling of patient and/or family. Dictated By: Melissa Wilson APRN DD/ [id number] Signed By: <Electronically signed by LUIS Wilson> 05/16/22 1150 [facility] Work Phone: Progress note No data available for this section [facility] progress note Author Melissa Wilson [facility] September 08, 2023 2:36pm Note Date/Time September 04, 2023 1:14pm [facility] [place] [address] Cancer Center Note Signed Patient: Velia Bagley MR#: [id number] : 1960 Acct:[id number] Age/Sex: 63 / M Type: DEP AMB Date of Service: 09/04/23 Copies to: Rachel Rayo MD~ Assessment & Plan A/P (1) 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c): Plan Iron deficiency anemia d/t chronic blood loss symptomatic with moderately severs GI intolerance to oral iron supplementation Given IV Venofer Jan 2022 Will offer additional IV Venofer in Mar 2022 as counts did not completely normalize after initial dosing in JanMay 2022 iron studies ok, no need for additional iron. EGD done without evidenceof bleeding August 2022 iron studies remain WNL again. Given his stability, we will plan follow-up in 6 months with repeat labs, sooner as needed Feb 2023 iron studies remain ok. Ferritin lower than previous labs, but still WNL. Will repeat cbc, cmp, iron studies in 3mo, sooner as needed. May 2023 iron studies remain stable. He would like to keep close monitoring, so we will stick with 3 month follow-up and labs, sooner if needed September 2023 visit his iron is ok, hemoglobin WNL. We discussed recommendations for further w/u of his fatigue with his pcp if necessary Continues to get IVIG infusions about every 4-6wks thru immunology. 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 fib on Eliquis,CHF, aortic stenosis, CKD 3 who presented to the emergency room from her primarycare provider's office after finding a hemoglobin of 6.7. Patient was otherwiseasymptomatic other than some slight fatigue and PITTS. She denied any chest pain, hemoptysis, bright red bloody stools. Patient does chronically take iron and states that she always has dark stools. Denies any tarry stools, they were morechalky in her opinion. Had CHF and flash pulmonary edema in November 2020. had a liter removed R thoracentesis in maybe december 2020 thought due to CHF. Recent GI work-up less than a month ago revealed no obvious source of bleeding and occult has been negative. Colonoscopy in december 2020 had some small polyps without evidence of inflammation, ulceration, friability or polyp formation. Hemorrhoids were seen but otherwise the rectum appeared normal with anterograde and retrograde views Despite this she did have an iron saturation that was 4% in December which may suggest iron deficiency. 02/14/21 She continues to feel well and remains asymptomatic. she likely will be discharged today we discussed her plan outpatient and I answered her questions 03/04/21 she dropped her hb from 9.6 to 7.5 in 4 days. she then stopped her eliquis withthe blessing of Dr. George. She got a unit of blood and feels a bit better. still a lot of swelling in her feet over few days. She has had about 5 transfusions recently and got IV iron in hospital. she follows with Dr. Gutierrez. 04/01/21 she never got iv iron last month she will get a second dose today. 04/22/21 SHE GOT BLOOD AN IRON A MONTH ago. her hb this week was 11.1. she maintains off of the eliquis and antiplatelet agents. 07/17/21 she feels tired, but otherwise ok her hgb is 10.1, iron sat is 17%. Dr. Maloney is her new digital solutions architect and has ordered iron, which she will get today on [address] her creatinine has been increasing, but her daughter and son in law note the digital solutions architect has made some medication changes and hope this will improve her kidney function they have held her aspirin d/t concerns for her hgb dropping. I did discuss withthem the concern for DVT with the atrial fibrillation and they will determine when they'd like to re-start this, but it was recommended to start again today denies dark stool, no other s/s of bleeding. 10/07/21 she is doin g well. continues to live independinely. Her creat is improved. She states her digital solutions architect told her it was because the antibiotics were complete and these were hard on her kidneys. she is again iron deficient. She is not on aspirin currently. She is not on eliquis currently either. 02/07/22 she continues to do well and is without new complaints denies dark, tarry stool or other s/s of bleeding still living independently and has good family support last dose of Injectafer was 01/16, labs stable 05/16/22 she states she is doing well, no new complaints denies dark, tarry stool drove herself in today, remains independent at home labs hgb 11, iron sat 13.2%, ferritin 35.7. 07/04/22 she denies new complaints today doing very well, energy is stable still no dark, tarry stool or other s/s of bleeding she remains independent at home and driving labs stable, hgb 11.3. no iron studies were done for this visit, will get these with next set of labs since no changes in her symptoms and hgb 10/10/22 she is doing well. she is excited her daughter is down visit this weekend. She got iv iron written by her digital solutions architect on 09/03 and 09/19. she got injectafer. she takes prilosec and slow iron. 02/18/23 she has mild fatigue and slight dyspnea on exertion, weakness has restless legs and occasional muscle cramps was hospitalized 02/04-02/07 for dyspnea, leg swelling and weakness she denies black or tarry stool, no other s/s of bleeding per pt still dealing with the cyst on her back, awaiting removal by dermatology or pcp we discussed her iron is lower at 8% saturation and ferritin 10.4. hgb 9.1. Likely the reason for her increased symptoms and advised her she will need iron now to prevent worsening 03/31/23 she felt really tired/run down after her last iron infusions for a day or so. Wediscussed trying a steroid as a premed for next infusions she is having more fatigue with some dyspnea on exertion continued restless legs and muscle cramps on occasion the cyst on her back turned out to be an abscess and was drained, treated. No new concerns related to this she denies any known bleeding her creatinine is improved, she continues to follow closely with nephrology hgb 9.6, iron sat 14.5%, ferritin 176.3 06/02/23 had the flu over [place], recovered now sleep is screwed up, is not able to get to sleep at night and then sleeps duringthe day. he has some dyspnea on exertion He notes being in and out of the hospital ([facility]) with pneumonia after his last visit. Says he gets this every year around the same time hoping to get to the dentist soon for implants if his immunoglobulin levels are up has had some gum bleeding. Has had a few nosebleeds as well on the left side. These can last up to 30min. Follows with ENT no black/tarry stool labs ok, iron good 09/04/23 he is really tired still denies any bleeding no shortness of breath or chest pain had injections in his knees recently. His right one still will catch with walking hgb good, iron is not low Intake Vitals/Pain Assessment 09/04/23 13:16 Weight 81.647 kg BP 95/62 L Blood Pressure Location Lt brachial Position Sitting Temp 97.2 F L Temp Source Temporal Pulse 87 Pulse Source NIBP Respiration 16 Pulse Oximetry (%) 96 Oxygen Delivery Method room air Intake Visit Reasons: follow up visit Allergies avocado Allergy (Unknown, Verified 09/04/23 13:21) Swelling baclofen Allergy (Unknown, Verified 09/04/23 13:21) Weakness, anaphylaxis candesartan Allergy (Unknown, Verified 09/04/23 13:21) Unknown Reaction cefdinir Allergy (Unknown, Verified 09/04/23 13:21) Unknown Reaction chocolate flavor Allergy (Unknown, Verified 09/04/23 13:21) Headache ciprofloxacin [From Cipro] Allergy (Unknown, Verified 09/04/23 13:21) Rash diazepam [From Valium] Allergy (Unknown, Verified 09/04/23 13:21) Unknown Reaction, depression diltiazem Allergy (Unknown, Verified 09/04/23 13:21) Unknown Reaction grass pollen Allergy (Unknown, Verified 09/04/23 13:21) Unknown Reaction indomethacin [From Indocin] Allergy (Unknown, Verified 09/04/23 13:21) Hypotension, hives iodine Allergy (Unknown, Verified 09/04/23 13:21) Hives monosodium glutamate Allergy (Unknown, Verified 09/04/23 13:21) Hives penicillin G benzathine Allergy (Unknown, Verified 09/04/23 13:21) Hives penicillin V Allergy (Unknown, Verified 09/04/23 13:21) rash propranolol [From Inderal LA] Allergy (Unknown, Verified 09/04/23 13:21) Hypotension Sulfa (Sulfonamide Antibiotics) Allergy (Unknown, Verified 09/04/23 13:21) Unknown Reaction Penicillins Adverse Reaction (Verified 09/04/23 13:21) Rash - Last Reconciled 09/04/23 by Blanca Hodges amitriptyline 100 mg PO DAILY atorvastatin 40 mg PO DAILY biotin 10,000 mcg PO DIRECTED hakrzrtubr-tydylkkc-mghamodiaa 160-9-4.8 mcg/actuation 2 puffs inhalation BID celecoxib 400 mg PO BID cyclobenzaprine 10 mg PO QHS folic acid 1 mg PO DAILY hydrocodone-acetaminophen 5-325 mg 1 tab PO Q6HR PRN immune globul G-gly-IgA avg 46 40 gram/400 mL (10 %) (Gamunex-C) subcut levalbuterol HCl 1.25 mg inhalation Q8HR levalbuterol tartrate 45 mcg/actuation 1 puff inhalation Q6HR PRN losartan 50 mg PO DAILY mecobalamin (vitamin B12) 1,000 mcg PO DAILY methenamine hippurate 1 g PO BID omeprazole 20 mg PO DAILY onabotulinumtoxinA 200 units intradermal DIRECTED potassium chloride ER (Klor-Con M) 20 mEq PO BID pregabalin (Lyrica) 100 mg PO BID rizatriptan 10 mg PO DIRECTED spironolactone TAKE 1 TABLET BY MOUTH EVERY DAY topiramate 200 mg PO DIRECTED venlafaxine ER 225 mg PO DAILY verapamil 120 mg PO DAILY Gastrointestinal Is the patient taking opioids for pain control?: No [place] Precaution Measures Taken: Patient in chair Nurse's Note: Patient is here today for a 3 month follow up visit for iron deficiency anemia [facility] Medical History Medical History Pernicious anemia Interstitial lung disease Hypertension Asthma Moderate persistent asthma without complication Moderate episode of recurrent major depressive disorder Essential (primary) hypertension COPD (chronic obstructive pulmonary disease) Bilateral primary osteoarthritis of knee Limbal injection Interstitial lung disease Pneumonia Anemia Leukocytosis Pernicious anemia GERD (gastroesophageal reflux disease) Peripheral neuropathy Migraines CVA (cerebral vascular accident) Hypertension Chronic back pain Immunocompromised COVID COVID-19 long hauler Anxiety Depression On home oxygen therapy Asthma COPD (chronic obstructive pulmonary disease) Surgical History Surgical History S/P reconstruction of ACL of left knee using bone-patellar tendon-bone autograft History of lumbar laminectomy History of right hip replacement History of repair of right hip joint H/O knee surgery (~1973) History of back surgery (~2015) History of right hip replacement (~2019) Family History Family History Brother History of malignant neoplasm of prostate Legacy FamHx Relation: Brother(s) Cancer Legacy FamHx Relation: Brother(s); Legacy FamHx Problem: Diagnosed with Cancer Father History of malignant neoplasm of prostate Heart disease Cancer Legacy FamHx Problem: Diagnosed with Cancer Mother Hypertension COPD (chronic obstructive pulmonary disease) Heart disease Other No significant family history Social History Social History Smoking status: Never smoker Physical Exam EXAM GENERAL APPEARANCE: Well developed, well nourished, in no acute distress. SKIN: Inspection of the skin reveals no rashes, ulcerations or petechiae. LUNGS: CTA, no wheezes, rhonchi or rales. Symmetric expansion CARDIOVASCULAR: S1 and S2, regular rate and rhythm MUSCULOSKELETAL: Walks with cane EXTREMITIES: No cyanosis, clubbing or edema. NEUROLOGIC: Alert and oriented x 3. [facility] - [facility] LAB RESULTS Corrected WBC 6.4 X10E3/uL (4.1-10.5) 09/01/23 09:25 Hgb 14.2 g/dL (13.0-17.0) 09/01/23 09:25 Hct 42.7 % (38.8-50.0) 09/01/23 09:25 MCV 93.4 fl (83.5-101) 09/01/23 09:25 RDW 13.7 % (12.0-14.8) 09/01/23 09:25 Plt Count 172 x10E3/uL (150-450) 09/01/23 09:25 Sodium 139 mmol/L (136-145) 08/20/23 12:15 Potassium 3.7 mmol/L (3.5-5.1) 08/20/23 12:15 BUN 23.0 mg/dL (7.0-18.0) H 08/20/23 12:15 Creatinine 1.12 mg/dL (0.70-1.30) 08/20/23 12:15 Glucose 97 mg/dL (74-106) 08/20/23 12:15 Calcium 8.8 mg/dL (8.5-10.1) 08/20/23 12:15 Total Bilirubin 0.3 mg/dL (0.2-1.0) 08/20/23 12:15 AST 8 U/L (15-37) L 08/20/23 12:15 ALT 8 U/L (16-63) L 08/20/23 12:15 Alkaline Phosphatase 111 U/L (46-116) 08/20/23 12:15 Iron 166 ug/dL (50-212) 09/01/23 09:25 Iron Saturation 53.2 % (20-50) H 09/01/23 09:25 Ferritin 39.7 ng/mL (23.9-336.2) 09/01/23 09:25 Total Protein 6.9 g/dL (6.4-8.2) 08/20/23 12:15 Albumin 3.6 g/dL (3.4-5.0) 08/20/23 12:15 Total PSA 2.57 ng/mL (<=4.00) 08/28/23 15:00 Dictated By: Melissa Wilson APRN DD/ [id number] Signed By: <Electronically signed by LUIS Wilson> 09/08/23 1436 [facility] Work Phone: Reason for referral (narrative)* Procedure (Routine) - Pending Review Specialty Diagnoses / Procedures Referred By Contac t Referred To Contact Diagnoses Chronic migraine without aura, with intractable migraine, so stated, with status migrainosus Procedures Head/Face/Jaw Botulinum Injection Jodie Matthews MD [address] [place] [address] Referral ID Status Reason Start Date Expiration Date Visits Requested Visits Authorized [id number] Pending Review Perform Procedure 3 04/14/2024 1 1 * Clinic-Administered Medication (Routine) - Pending Review Specialty Diagnoses / Procedures Referred By Contac t Referred To Contact Diagnoses Intractable chronic migraine without aura and with status migrainosus Jodie Matthews MD [address] [place], [place] [id number] Referral ID Status Reason Start Date Expiration Date V isits Requested Visits Authorized [id number] Pending Review 04/15/2023 04/14/2024 1 1 * Clinic-Administered Medication (Routine) - Pending Review Specialty Diagnoses / Procedures Referred By Contac t Referred To Contact Diagnoses Intractable chronic migraine without aura and with status migrainosus Jodie Matthews MD [address] [place] [id number] Referral ID Status Reason Start Date Expiration Date V isits Requested Visits Authorized [id number] Pending Review 04/15/2023 04/14/2024 1 1 [facility] Work Phone: Reason for referral (narrative)* Procedure (Routine) - Pending Review Specialty Diagnoses / Procedures Referred By Contac t Referred To Contact Diagnoses Intractable chronic migraine without aura and with status migrainosus Procedures Head/Face/Jaw Botulinum Injection Jodie Matthews MD [address] [place] [id number] Referral ID Status Reason Start Date Expiration Date Visits Requested Visits Authorized [id number] Pending Review Perform Procedure 07/20/2023 07/19/2024 1 1 * Clinic-Administered Medication (Routine) - Pending Review Specialty Diagnoses / Procedures Referred By Contac t Referred To Contact Diagnoses Intractable chronic migraine without aura and with status migrainosus Jodie Matthews MD [address] [place] [id number] Referral ID Status Reason Start Date Expiration Date V isits Requested Visits Authorized [id number] Pending Review 07/20/2023 07/19/2024 1 1 * Medications - Pending Review Specialty Diagnoses / Procedures Referred By Contac t Referred To Contact Diagnoses Chronic migraine without aura without status migrainosus, not intractable Jodie Matthews MD [address] [place] [phone] Referral ID Status Reason Start Date Expiration Date V isits Requested Visits Authorized [id number] Pending Review 07/16/2023 07/15/2024 1 1 * Clinic-Administered Medication (Routine) - Pending Review Specialty Diagnoses / Procedures Referred By Contac t Referred To Contact Diagnoses Chronic migraine without aura without status migrainosus, not intractable Jodie Matthews MD [address] [place] [id number] Referral ID Status Reason Start Date Expiration Date V isits Requested Visits Authorized [id number] Pending Review 07/15/2023 07/14/2024 1 1 [facility] Work Phone: Reason for referral (narrative)* Procedure (Routine) - Pending Review Specialty Diagnoses / Procedures Referred By Contac t Referred To Contact Diagnoses Intractable chronic migraine without aura and with status migrainosus Procedures Head/Face/Jaw Botulinum Injection Jodie Matthews MD [address] [place] [id number] Referral ID Status Reason Start Date Expiration Date Visits Requested Visits Authorized [id number] Pending Review Perform Procedure 10/12/2023 10/11/2024 1 1 * Clinic-Administered Medication (Routine) - Pending Review Specialty Diagnoses / Procedures Referred By Contac t Referred To Contact Diagnoses Intractable chronic migraine without aura and with status migrainosus Jodie Matthews MD [address] [place] [id number] Referral ID Status Reason Start Date Expiration Date V isits Requested Visits Authorized [id number] Pending Review 10/12/2023 10/11/2024 1 1 * Medications - Closed Specialty Diagnoses / Procedures Referred By Contac t Referred To Contact Diagnoses Intractable chronic migraine without aura and with status migrainosus Jodie Matthews MD [address] [place] [id number] Referral ID Status Reason Start Date Expiration Date Visits Re quested Visits Authorized [id number] Closed 1 1 * Clinic-Administered Medication (Routine) - Pending Review Specialty Diagnoses / Procedures Referred By Contac t Referred To Contact Diagnoses Intractable chronic migraine without aura and with status migrainosus Jodie Matthews MD [address] [place] [address] Referral ID Status Reason Start Date Expiration Date V isits Requested Visits Authorized [id number] Pending Review 10/12/2023 10/11/2024 1 1 [facility] Work Phone: Reason for referral (narrative)* Procedure (Routine) - Pending Review Specialty Diagnoses / Procedures Referred By Contac t Referred To Contact Diagnoses Intractable chronic migraine without aura and with status migrainosus Procedures Head/Face/Jaw Botulinum Injection Jodie Matthews MD [address] [place] [address] Referral ID Status Reason Start Date Expiration Date Visits Requested Visits Authorized [id number] Pending Review Perform Procedure 01/11/2024 01/10/2025 1 1 * Clinic-Administered Medication (Routine) - Pending Review Specialty Diagnoses / Procedures Referred By Contac t Referred To Contact Diagnoses Intractable chronic migraine without aura and with status migrainosus Jodie Matthews MD [address] [place] [address] Referral ID Status Reason Start Date Expiration Date V isits Requested Visits Authorized [id number] Pending Review 01/11/2024 01/10/2025 1 1 * Clinic-Administered Medication (Routine) - Pending Review Specialty Diagnoses / Procedures Referred By [place] Referred To Contact Diagnoses Chronic migraine without aura, intractable, with status migrainosus Jodie Matthews MD [address] [place] [address] Referral ID Status Reason Start Date Expiration Date V isits Requested Visits Authorized [id number] Pending Review 01/11/2024 01/10/2025 1 1 [facility] Work Phone: Reason for visit Narrative* Imaging (Routine) - Authorized Specialty Diagnoses / Procedures Referred By [place] Referred To Contact Radiology Diagnoses ILD (interstitial lung disease) (Multi) Procedures CT chest high resolution Rich Magana MD [facility] [address] [place] [address] Phone: tel: fax: Referral ID Status Reason Start Date Expiration Date Visits Requested Visits Authorized [id number] Authorized Perform Procedure 12/07/2023 12/06/2024 1 1 [facility] Work Phone: Summary Purpose Family History No Family History Records Found aunt Name Dates Details Family history of diabetes m ellitus(V18.0, Z83.3) Status:Active Mother Name Dates Details Family history of Stroke Syn drome(V17.1) Status:Active Family history of hypertensi on(V17.49, Z82.49) Status:Active Father Name Dates Details Family history of Alzheimer Disease Status:Active FH: Parkinson's disease(V17. 2, Z82.0) Status:Active Family history of heart dise ase(V17.49, Z82.49) Status:Active aunt Name Dates Details Family history of diabetes m micheleitus(V18.0, Z83.3) Status:Active Mother Name Dates Details Family history of Stroke Syn drome(V17.1) Status:Active Family history of hypertensi on(V17.49, Z82.49) Status:Active Father Name Dates Details Family history of Alzheimer Disease Status:Active FH: Parkinson's disease(V17. 2, Z82.0) Status:Active Family history of heart dise ase(V17.49, Z82.49) Status:Active aunt Name Dates Details Family history of diabetes m ellitus(V18.0, Z83.3) Status:Active Mother Name Dates Details Family history of hypertensi on(V17.49, Z82.49) Status:Active Family history of Stroke Syn drome(V17.1) Status:Active Father Name Dates Details Family history of heart dise ase(V17.49, Z82.49) Status:Active FH: Parkinson's disease(V17. 2, Z82.0) Status:Active Family history of Alzheimer Disease Status:Active aunt Name Dates Details Family history of diabetes m ellitus(V18.0, Z83.3) Status:Active Mother Name Dates Details Family history of Stroke Syn drome(V17.1) Status:Active Family history of hypertensi on(V17.49, Z82.49) Status:Active Father Name Dates Details Family history of Alzheimer Disease Status:Active FH: Parkinson's disease(V17. 2, Z82.0) Status:Active Family history of heart dise ase(V1.49, Z82.49) Status:Active aunt Name Dates Details Family history of diabetes m ellitus(V18.0, Z83.3) Status:Active Mother Name Dates Details Family history of Stroke Syn drome(V17.1) Status:Active Family history of hypertensi on(V1.49, Z82.49) Status:Active Father Name Dates Details Family history of Alzheimer Disease Status:Active FH: Parkinson's disease(V17. 2, Z82.0) Status:Active Family history of heart dise ase(V17.49, Z82.49) Status:Active aunt Name Dates Details Family history of diabetes m ellitus(V18.0, Z83.3) Status:Active Mother Name Dates Details Family history of Stroke Syn drome(V17.1) Status:Active Family history of hypertensi on(V17.49, Z82.49) Status:Active Father Name Dates Details Family history of Alzheimer Disease Status:Active FH: Parkinson's disease(V17. 2, Z82.0) Status:Active Family history of heart dise ase(V17.49, Z82.49) Status:Active aunt Name Dates Details Family history of diabetes m ellitus(V18.0, Z83.3) Status:Active Mother Name Dates Details Family history of Stroke Syn drome(V17.1) Status:Active Family history of hypertensi on(V17.49, Z82.49) Status:Active Father Name Dates Details Family history of Alzheimer Disease Status:Active FH: Parkinson's disease(V17. 2, Z82.0) Status:Active Family history of heart dise ase(V17.49, Z82.49) Status:Active aunt Name Dates Details Family history of diabetes m ellitus(V18.0, Z83.3) Status:Active Mother Name Dates Details Family history of Stroke Syn drome(V17.1) Status:Active Family history of hypertensi on(V17.49, Z82.49) Status:Active Father Name Dates Details Family history of Alzheimer Disease Status:Active FH: Parkinson's disease(V17. 2, Z82.0) Status:Active Family history of heart dise ase(7.49, Z82.49) Status:Active aunt Name Dates Details Family history of diabetes m ellitus(V18.0, Z83.3) Status:Active Mother Name Dates Details Family history of Stroke Syn drome(V17.1) Status:Active Family history of hypertensi on(V17.49, Z82.49) Status:Active Father Name Dates Details Family history of Alzheimer Disease Status:Active FH: Parkinson's disease(V17. 2, Z82.0) Status:Active Family history of heart dise ase(V17.49, Z82.49) Status:Active aunt Name Dates Details Family history of diabetes m ellitus(V18.0, Z83.3) Status:Active Mother Name Dates Details Family history of Stroke Syn drome(V17.1) Status:Active Family history of hypertensi on(V17.49, Z82.49) Status:Active Father Name Dates Details Family history of Alzheimer Disease Status:Active FH: Parkinson's disease(V17. 2, Z82.0) Status:Active Family history of heart dise ase(V17.49, Z82.49) Status:Active aunt Name Dates Details Family history of diabetes m ellitus(V18.0, Z83.3) Status:Active Mother Name Dates Details Family history of Stroke Syn drome(V17.1) Status:Active Family history of hypertensi on(V17.49, Z82.49) Status:Active Father Name Dates Details Family history of Alzheimer Disease Status:Active FH: Parkinson's disease(V17. 2, Z82.0) Status:Active Family history of heart dise ase(V17.49, Z82.49) Status:Active aunt Name Dates Details Family history of diabetes m ellitus(V18.0, Z83.3) Status:Active Mother Name Dates Details Family history of hypertensi on(V17.49, Z82.49) Status:Active Family history of Stroke Syn drome(V17.1) Status:Active Father Name Dates Details Family history of heart dise ase(V17.49, Z82.49) Status:Active FH: Parkinson's disease(V17. 2, Z82.0) Status:Active Family history of Alzheimer Disease Status:Active Unknown Family Member Name Dates Details Denies Migraine Headache: Fa rylie History Status: Alzheimer Disease: Father Status:Active Stroke Syndrome: Mother(V17. 1) Status:Active FH: Parkinson's disease: Fat her(V17.2, Z82.0) Status:Active Family history of diabetes m ellitus: Aunt(V18.0, Z83.3) Status:Active Family history of heart dise ase: Father(V17.49, Z82.49) Status:Active Family history of hypertensi on: Mother(V17.49, Z82.49) Status:Active Unknown Family Member Name Dates Details Denies Migraine Headache: Fa rylie History Status: Alzheimer Disease: Father Status:Active Stroke Syndrome: Mother(V17. 1) Status:Active FH: Parkinson's disease: Fat her(V17.2, Z82.0) Status:Active Family history of diabetes m ellitus: Aunt(V18.0, Z83.3) Status:Active Family history of heart dise ase: Father(V17.49, Z82.49) Status:Active Family history of hypertensi on: Mother(V17.49, Z82.49) Status:Active Unknown Family Member Name Dates Details Denies Migraine Headache: Fa rylie History Status: Alzheimer Disease: Father Status:Active Stroke Syndrome: Mother(V17. 1) Status:Active FH: Parkinson's disease: Fat her(V17.2, Z82.0) Status:Active Family history of diabetes m ellitus: Aunt(V18.0, Z83.3) Status:Active Family history of heart dise ase: Father(V17.49, Z82.49) Status:Active Family history of hypertensi on: Mother(V17.49, Z82.49) Status:Active Unknown Family Member Name Dates Details Denies Migraine Headache: Fa rylie History Status: Alzheimer Disease: Father Status:Active Stroke Syndrome: Mother(V17. 1) Status:Active FH: Parkinson's disease: Fat her(V17.2, Z82.0) Status:Active Family history of diabetes m ellitus: Aunt(V18.0, Z83.3) Status:Active Family history of heart dise ase: Father(V17.49, Z82.49) Status:Active Family history of hypertensi on: Mother(V17.49, Z82.49) Status:Active Unknown Family Member Name Dates Details Denies Migraine Headache: Fa rylie History Status: Alzheimer Disease: Father Status:Active Stroke Syndrome: Mother(V17. 1) Status:Active FH: Parkinson's disease: Fat her(V17.2, Z82.0) Status:Active Family history of diabetes m ellitus: Aunt(V18.0, Z83.3) Status:Active Family history of heart dise ase: Father(V17.49, Z82.49) Status:Active Family history of hypertensi on: Mother(V17.49, Z82.49) Status:Active Unknown Family Member Name Dates Details Denies Migraine Headache: Fa rylie History Status: Alzheimer Disease: Father Status:Active Stroke Syndrome: Mother(V17. 1) Status:Active FH: Parkinson's disease: Fat her(V17.2, Z82.0) Status:Active Family history of diabetes m ellitus: Aunt(V18.0, Z83.3) Status:Active Family history of heart dise ase: Father(V17.49, Z82.49) Status:Active Family history of hypertensi on: Mother(V17.49, Z82.49) Status:Active Unknown Family Member Name Dates Details Denies Migraine Headache: Fa rylie History Status: Alzheimer Disease: Father Status:Active Stroke Syndrome: Mother(V17. 1) Status:Active FH: Parkinson's disease: Fat her(V17.2, Z82.0) Status:Active Family history of diabetes m ellitus: Aunt(V18.0, Z83.3) Status:Active Family history of heart dise ase: Father(V17.49, Z82.49) Status:Active Family history of hypertensi on: Mother(V17.49, Z82.49) Status:Active Unknown Family Member Name Dates Details Denies Migraine Headache: Fa rylie History Status: Alzheimer Disease: Father Status:Active Stroke Syndrome: Mother(V17. 1) Status:Active FH: Parkinson's disease: Fat her(V17.2, Z82.0) Status:Active Family history of diabetes m ellitus: Aunt(V18.0, Z83.3) Status:Active Family history of heart dise ase: Father(V17.49, Z82.49) Status:Active Family history of hypertensi on: Mother(V17.49, Z82.49) Status:Active Unknown Family Member Name Dates Details Denies Migraine Headache: Fa rylie History Status: Alzheimer Disease: Father Status:Active Stroke Syndrome: Mother(V17. 1) Status:Active FH: Parkinson's disease: Fat her(V17.2, Z82.0) Status:Active Family history of diabetes m ellitus: Aunt(V18.0, Z83.3) Status:Active Family history of heart dise ase: Father(V17.49, Z82.49) Status:Active Family history of hypertensi on: Mother(V17.49, Z82.49) Status:Active Unknown Family Member Name Dates Details Denies Migraine Headache: Fa rylie History Status: Alzheimer Disease: Father Status:Active Stroke Syndrome: Mother(V17. 1) Status:Active FH: Parkinson's disease: Fat her(V17.2, Z82.0) Status:Active Family history of diabetes m ellitus: Aunt(V18.0, Z83.3) Status:Active Family history of heart dise ase: Father(V17.49, Z82.49) Status:Active Family history of hypertensi on: Mother(V17.49, Z82.49) Status:Active Unknown Family Member Name Dates Details Denies Migraine Headache: Fa rylie History Status: Alzheimer Disease: Father Status:Active Stroke Syndrome: Mother(V17. 1) Status:Active FH: Parkinson's disease: Fat her(V17.2, Z82.0) Status:Active Family history of diabetes m ellitus: Aunt(V18.0, Z83.3) Status:Active Family history of heart dise ase: Father(V17.49, Z82.49) Status:Active Family history of hypertensi on: Mother(V17.49, Z82.49) Status:Active Unknown Family Member Name Dates Details Denies Migraine Headache: Fa rylie History Status: Alzheimer Disease: Father Status:Active Stroke Syndrome: Mother(V17. 1) Status:Active FH: Parkinson's disease: Fat her(V17.2, Z82.0) Status:Active Family history of diabetes m ellitus: Aunt(V18.0, Z83.3) Status:Active Family history of heart dise ase: Father(V17.49, Z82.49) Status:Active Family history of hypertensi on: Mother(V17.49, Z82.49) Status:Active Unknown Family Member Name Dates Details Denies Migraine Headache: Fa rylie History Status: Alzheimer Disease: Father Status:Active Stroke Syndrome: Mother(V17. 1) Status:Active FH: Parkinson's disease: Fat her(V17.2, Z82.0) Status:Active Family history of diabetes m ellitus: Aunt(V18.0, Z83.3) Status:Active Family history of heart dise ase: Father(V17.49, Z82.49) Status:Active Family history of hypertensi on: Mother(V17.49, Z82.49) Status:Active Unknown Family Member Name Dates Details Denies Migraine Headache: Fa rylie History Status: Alzheimer Disease: Father Status:Active Stroke Syndrome: Mother(V17. 1) Status:Active FH: Parkinson's disease: Fat her(V17.2, Z82.0) Status:Active Family history of diabetes m ellitus: Aunt(V18.0, Z83.3) Status:Active Family history of heart dise ase: Father(V17.49, Z82.49) Status:Active Family history of hypertensi on: Mother(V17.49, Z82.49) Status:Active Unknown Family Member Name Dates Details FH: Parkinson's disease: Fat her(V17.2, Z82.0) Status:Active Family history of diabetes m ellitus: Aunt(V18.0, Z83.3) Status:Active Family history of heart dise ase: Father(V17.49, Z82.49) Status:Active Family history of hypertensi on: Mother(V17.49, Z82.49) Status:Active Stroke Syndrome: Mother(V17. 1) Status:Active Alzheimer Disease: Father Status:Active Denies Migraine Headache: Fa rylie History Status: Unknown Family Member Name Dates Details Alzheimer Disease: Father Status:Active FH: Parkinson's disease: Fat her(V17.2, Z82.0) Status:Active Family history of diabetes m ellitus: Aunt(V18.0, Z83.3) Status:Active Family history of heart dise ase: Father(V17.49, Z82.49) Status:Active Family history of hypertensi on: Mother(V17.49, Z82.49) Status:Active Family history of Alzheimer' s disease: Father, Grandmother(V17.2, Z82.0) Status:Active Unknown Family Member Name Dates Details Alzheimer Disease: Father Status:Active FH: Parkinson's disease: Fat her(V17.2, Z82.0) Status:Active Family history of diabetes m ellitus: Aunt(V18.0, Z83.3) Status:Active Family history of heart dise ase: Father(V17.49, Z82.49) Status:Active Family history of hypertensi on: Mother(V17.49, Z82.49) Status:Active Family history of Alzheimer' s disease: Father, Grandmother(V17.2, Z82.0) Status:Active Unknown Family Member Name Dates Details Alzheimer Disease: Father Status:Active FH: Parkinson's disease: Fat her(V17.2, Z82.0) Status:Active Family history of diabetes m ellitus: Aunt(V18.0, Z83.3) Status:Active Family history of heart dise ase: Father(V17.49, Z82.49) Status:Active Family history of hypertensi on: Mother(V17.49, Z82.49) Status:Active Family history of Alzheimer' s disease: Father, Grandmother(V17.2, Z82.0) Status:Active Unknown Family Member Name Dates Details Alzheimer Disease: Father Status:Active FH: Parkinson's disease: Fat her(V17.2, Z82.0) Status:Active Family history of diabetes m ellitus: Aunt(V18.0, Z83.3) Status:Active Family history of heart dise ase: Father(V17.49, Z82.49) Status:Active Family history of hypertensi on: Mother(V17.49, Z82.49) Status:Active Family history of Alzheimer' s disease: Father, Grandmother(V17.2, Z82.0) Status:Active Unknown Family Member Name Dates Details Alzheimer Disease: Father Status:Active FH: Parkinson's disease: Fat her(V17.2, Z82.0) Status:Active Family history of diabetes m ellitus: Aunt(V18.0, Z83.3) Status:Active Family history of heart dise ase: Father(V17.49, Z82.49) Status:Active Family history of hypertensi on: Mother(V17.49, Z82.49) Status:Active Family history of Alzheimer' s disease: Father, Grandmother(V17.2, Z82.0) Status:Active Unknown Family Member Name Dates Details Alzheimer Disease: Father Status:Active FH: Parkinson's disease: Fat her(V17.2, Z82.0) Status:Active Family history of diabetes m ellitus: Aunt(V18.0, Z83.3) Status:Active Family history of heart dise ase: Father(V17.49, Z82.49) Status:Active Family history of hypertensi on: Mother(V17.49, Z82.49) Status:Active Family history of Alzheimer' s disease: Father, Grandmother(V17.2, Z82.0) Status:Active Unknown Family Member Name Dates Details Alzheimer Disease: Father Status:Active FH: Parkinson's disease: Fat her(V17.2, Z82.0) Status:Active Family history of diabetes m ellitus: Aunt(V18.0, Z83.3) Status:Active Family history of heart dise ase: Father(V17.49, Z82.49) Status:Active Family history of hypertensi on: Mother(V17.49, Z82.49) Status:Active Family history of Alzheimer' s disease: Father, Grandmother(V17.2, Z82.0) Status:Active Unknown Family Member Name Dates Details Alzheimer Disease: Father Status:Active FH: Parkinson's disease: Fat her(V17.2, Z82.0) Status:Active Family history of diabetes m ellitus: Aunt(V18.0, Z83.3) Status:Active Family history of heart dise ase: Father(V17.49, Z82.49) Status:Active Family history of hypertensi on: Mother(V17.49, Z82.49) Status:Active Family history of Alzheimer' s disease: Father, Grandmother(V17.2, Z82.0) Status:Active Unknown Family Member Name Dates Details Alzheimer Disease: Father Status:Active FH: Parkinson's disease: Fat her(V17.2, Z82.0) Status:Active Family history of diabetes m ellitus: Aunt(V18.0, Z83.3) Status:Active Family history of heart dise ase: Father(V17.49, Z82.49) Status:Active Family history of hypertensi on: Mother(V17.49, Z82.49) Status:Active Family history of Alzheimer' s disease: Father, Grandmother(V17.2, Z82.0) Status:Active Unknown Family Member Name Dates Details Alzheimer Disease: Father Status:Active FH: Parkinson's disease: Fat her(V17.2, Z82.0) Status:Active Family history of diabetes m ellitus: Aunt(V18.0, Z83.3) Status:Active Family history of heart dise ase: Father(V17.49, Z82.49) Status:Active Family history of hypertensi on: Mother(V17.49, Z82.49) Status:Active Family history of Alzheimer' s disease: Father, Grandmother(V17.2, Z82.0) Status:Active Unknown Family Member Name Dates Details Alzheimer Disease: Father Status:Active FH: Parkinson's disease: Fat her(V17.2, Z82.0) Status:Active Family history of diabetes m ellitus: Aunt(V18.0, Z83.3) Status:Active Family history of heart dise ase: Father(V17.49, Z82.49) Status:Active Family history of hypertensi on: Mother(V17.49, Z82.49) Status:Active Family history of Alzheimer' s disease: Father, Grandmother(V17.2, Z82.0) Status:Active Unknown Family Member Name Dates Details Alzheimer Disease: Father Status:Active FH: Parkinson's disease: Fat her(V17.2, Z82.0) Status:Active Family history of diabetes m ellitus: Aunt(V18.0, Z83.3) Status:Active Family history of heart dise ase: Father(V17.49, Z82.49) Status:Active Family history of hypertensi on: Mother(V17.49, Z82.49) Status:Active Family history of Alzheimer' s disease: Father, Grandmother(V17.2, Z82.0) Status:Active Unknown Family Member Name Dates Details Alzheimer Disease: Father Status:Active FH: Parkinson's disease: Fat her(V17.2, Z82.0) Status:Active Family history of diabetes m ellitus: Aunt(V18.0, Z83.3) Status:Active Family history of heart dise ase: Father(V17.49, Z82.49) Status:Active Family history of hypertensi on: Mother(V17.49, Z82.49) Status:Active Family history of Alzheimer' s disease: Father, Grandmother(V17.2, Z82.0) Status:Active Unknown Family Member Name Dates Details Alzheimer Disease: Father Status:Active FH: Parkinson's disease: Fat her(V17.2, Z82.0) Status:Active Family history of diabetes m ellitus: Aunt(V18.0, Z83.3) Status:Active Family history of heart dise ase: Father(V17.49, Z82.49) Status:Active Family history of hypertensi on: Mother(V17.49, Z82.49) Status:Active Family history of Alzheimer' s disease: Father, Grandmother(V17.2, Z82.0) Status:Active Unknown Family Member Name Dates Details Alzheimer Disease: Father Status:Active FH: Parkinson's disease: Fat her(V17.2, Z82.0) Status:Active Family history of diabetes m ellitus: Aunt(V18.0, Z83.3) Status:Active Family history of heart dise ase: Father(V17.49, Z82.49) Status:Active Family history of hypertensi on: Mother(V17.49, Z82.49) Status:Active Family history of Alzheimer' s disease: Father, Grandmother(V17.2, Z82.0) Status:Active Unknown Family Member Name Dates Details Alzheimer Disease: Father Status:Active FH: Parkinson's disease: Fat her(V17.2, Z82.0) Status:Active Family history of diabetes m ellitus: Aunt(V18.0, Z83.3) Status:Active Family history of heart dise ase: Father(V17.49, Z82.49) Status:Active Family history of hypertensi on: Mother(V17.49, Z82.49) Status:Active Family history of Alzheimer' s disease: Father, Grandmother(V17.2, Z82.0) Status:Active Unknown Family Member Name Dates Details Alzheimer Disease: Father Status:Active FH: Parkinson's disease: Fat her(V17.2, Z82.0) Status:Active Family history of diabetes m ellitus: Aunt(V18.0, Z83.3) Status:Active Family history of heart dise ase: Father(V17.49, Z82.49) Status:Active Family history of hypertensi on: Mother(V17.49, Z82.49) Status:Active Family history of Alzheimer' s disease: Father, Grandmother(V17.2, Z82.0) Status:Active Unknown Family Member Name Dates Details Alzheimer Disease: Father Status:Active FH: Parkinson's disease: Fat her(V17.2, Z82.0) Status:Active Family history of diabetes m ellitus: Aunt(V18.0, Z83.3) Status:Active Family history of heart dise ase: Father(V17.49, Z82.49) Status:Active Family history of hypertensi on: Mother(V17.49, Z82.49) Status:Active Family history of Alzheimer' s disease: Father, Grandmother(V17.2, Z82.0) Status:Active Unknown Family Member Name Dates Details Alzheimer Disease: Father Status:Active FH: Parkinson's disease: Fat her(V17.2, Z82.0) Status:Active Family history of diabetes m ellitus: Aunt(V18.0, Z83.3) Status:Active Family history of heart dise ase: Father(V17.49, Z82.49) Status:Active Family history of hypertensi on: Mother(V17.49, Z82.49) Status:Active Family history of Alzheimer' s disease: Father, Grandmother(V17.2, Z82.0) Status:Active Unknown Family Member Name Dates Details Alzheimer Disease: Father Status:Active FH: Parkinson's disease: Fat her(V17.2, Z82.0) Status:Active Family history of diabetes m ellitus: Aunt(V18.0, Z83.3) Status:Active Family history of heart dise ase: Father(V17.49, Z82.49) Status:Active Family history of hypertensi on: Mother(V17.49, Z82.49) Status:Active Family history of Alzheimer' s disease: Father, Grandmother(V17.2, Z82.0) Status:Active Unknown Family Member Name Dates Details Alzheimer Disease: Father Status:Active FH: Parkinson's disease: Fat her(V17.2, Z82.0) Status:Active Family history of diabetes m ellitus: Aunt(V18.0, Z83.3) Status:Active Family history of heart dise ase: Father(V17.49, Z82.49) Status:Active Family history of hypertensi on: Mother(V17.49, Z82.49) Status:Active Family history of Alzheimer' s disease: Father, Grandmother(V17.2, Z82.0) Status:Active Unknown Family Member Name Dates Details Alzheimer Disease: Father Status:Active FH: Parkinson's disease: Fat her(V17.2, Z82.0) Status:Active Family history of diabetes m ellitus: Aunt(V18.0, Z83.3) Status:Active Family history of heart dise ase: Father(V17.49, Z82.49) Status:Active Family history of hypertensi on: Mother(V17.49, Z82.49) Status:Active Family history of Alzheimer' s disease: Father, Grandmother(V17.2, Z82.0) Status:Active Unknown Family Member Name Dates Details Alzheimer Disease: Father Status:Active FH: Parkinson's disease: Fat her(V17.2, Z82.0) Status:Active Family history of diabetes m ellitus: Aunt(V18.0, Z83.3) Status:Active Family history of heart dise ase: Father(V17.49, Z82.49) Status:Active Family history of hypertensi on: Mother(V17.49, Z82.49) Status:Active Family history of Alzheimer' s disease: Father, Grandmother(V17.2, Z82.0) Status:Active Unknown Family Member Name Dates Details Alzheimer Disease: Father Status:Active FH: Parkinson's disease: Fat her(V17.2, Z82.0) Status:Active Family history of diabetes m ellitus: Aunt(V18.0, Z83.3) Status:Active Family history of heart dise ase: Father(V17.49, Z82.49) Status:Active Family history of hypertensi on: Mother(V17.49, Z82.49) Status:Active Family history of Alzheimer' s disease: Father, Grandmother(V17.2, Z82.0) Status:Active Unknown Family Member Name Dates Details Alzheimer Disease: Father Status:Active FH: Parkinson's disease: Fat her(V17.2, Z82.0) Status:Active Family history of diabetes m ellitus: Aunt(V18.0, Z83.3) Status:Active Family history of heart dise ase: Father(V17.49, Z82.49) Status:Active Family history of hypertensi on: Mother(V17.49, Z82.49) Status:Active Family history of Alzheimer' s disease: Father, Grandmother(V17.2, Z82.0) Status:Active Unknown Family Member Name Dates Details Alzheimer Disease: Father Status:Active FH: Parkinson's disease: Fat her(V17.2, Z82.0) Status:Active Family history of diabetes m ellitus: Aunt(V18.0, Z83.3) Status:Active Family history of heart dise ase: Father(V17.49, Z82.49) Status:Active Family history of hypertensi on: Mother(V17.49, Z82.49) Status:Active Family history of Alzheimer' s disease: Father, Grandmother(V17.2, Z82.0) Status:Active Unknown Family Member Name Dates Details Family history of hypertensi on: Mother(V17.49, Z82.49) Status:Active Family history of heart dise ase: Father(V17.49, Z82.49) Status:Active Family history of diabetes m ellitus: Aunt(V18.0, Z83.3) Status:Active Alzheimer Disease: Father Status:Active Family history of Alzheimer' s disease: Father, Grandmother(V17.2, Z82.0) Status:Active FH: Parkinson's disease: Fat her(V17.2, Z82.0) Status:Active Unknown Family Member Name Dates Details Alzheimer Disease: Father Status:Active FH: Parkinson's disease: Fat her(V17.2, Z82.0) Status:Active Family history of diabetes m ellitus: Aunt(V18.0, Z83.3) Status:Active Family history of heart dise ase: Father(V17.49, Z82.49) Status:Active Family history of hypertensi on: Mother(V17.49, Z82.49) Status:Active Family history of Alzheimer' s disease: Father, Grandmother(V17.2, Z82.0) Status:Active Unknown Family Member Name Dates Details Alzheimer Disease: Father Status:Active FH: Parkinson's disease: Fat her(V17.2, Z82.0) Status:Active Family history of diabetes m ellitus: Aunt(V18.0, Z83.3) Status:Active Family history of heart dise ase: Father(V17.49, Z82.49) Status:Active Family history of hypertensi on: Mother(V17.49, Z82.49) Status:Active Family history of Alzheimer' s disease: Father, Grandmother(V17.2, Z82.0) Status:Active Unknown Family Member Name Dates Details Alzheimer Disease: Father Status:Active FH: Parkinson's disease: Fat her(V17.2, Z82.0) Status:Active Family history of diabetes m ellitus: Aunt(V18.0, Z83.3) Status:Active Family history of heart dise ase: Father(V17.49, Z82.49) Status:Active Family history of hypertensi on: Mother(V17.49, Z82.49) Status:Active Family history of Alzheimer' s disease: Father, Grandmother(V17.2, Z82.0) Status:Active Unknown Family Member Name Dates Details Alzheimer Disease: Father Status:Active FH: Parkinson's disease: Fat her(V17.2, Z82.0) Status:Active Family history of diabetes m ellitus: Aunt(V18.0, Z83.3) Status:Active Family history of heart dise ase: Father(V17.49, Z82.49) Status:Active Family history of hypertensi on: Mother(V17.49, Z82.49) Status:Active Family history of Alzheimer' s disease: Father, Grandmother(V17.2, Z82.0) Status:Active Unknown Family Member Name Dates Details Alzheimer Disease: Father Status:Active FH: Parkinson's disease: Fat her(V17.2, Z82.0) Status:Active Family history of diabetes m ellitus: Aunt(V18.0, Z83.3) Status:Active Family history of heart dise ase: Father(V17.49, Z82.49) Status:Active Family history of hypertensi on: Mother(V17.49, Z82.49) Status:Active Family history of Alzheimer' s disease: Father, Grandmother(V17.2, Z82.0) Status:Active Unknown Family Member Name Dates Details Alzheimer Disease: Father Status:Active FH: Parkinson's disease: Fat her(V17.2, Z82.0) Status:Active Family history of diabetes m ellitus: Aunt(V18.0, Z83.3) Status:Active Family history of heart dise ase: Father(V17.49, Z82.49) Status:Active Family history of hypertensi on: Mother(V17.49, Z82.49) Status:Active Family history of Alzheimer' s disease: Father, Grandmother(V17.2, Z82.0) Status:Active Unknown Family Member Name Dates Details Alzheimer Disease: Father Status:Active FH: Parkinson's disease: Fat her(V17.2, Z82.0) Status:Active Family history of diabetes m ellitus: Aunt(V18.0, Z83.3) Status:Active Family history of heart dise ase: Father(V17.49, Z82.49) Status:Active Family history of hypertensi on: Mother(V17.49, Z82.49) Status:Active Family history of Alzheimer' s disease: Father, Grandmother(V17.2, Z82.0) Status:Active Unknown Family Member Name Dates Details Alzheimer Disease: Father Status:Active FH: Parkinson's disease: Fat her(V17.2, Z82.0) Status:Active Family history of diabetes m ellitus: Aunt(V18.0, Z83.3) Status:Active Family history of heart dise ase: Father(V17.49, Z82.49) Status:Active Family history of hypertensi on: Mother(V17.49, Z82.49) Status:Active Family history of Alzheimer' s disease: Father, Grandmother(V17.2, Z82.0) Status:Active Unknown Family Member Name Dates Details Alzheimer Disease: Father Status:Active FH: Parkinson's disease: Fat her(V17.2, Z82.0) Status:Active Family history of diabetes m ellitus: Aunt(V18.0, Z83.3) Status:Active Family history of heart dise ase: Father(V17.49, Z82.49) Status:Active Family history of hypertensi on: Mother(V17.49, Z82.49) Status:Active Family history of Alzheimer' s disease: Father, Grandmother(V17.2, Z82.0) Status:Active Unknown Family Member Name Dates Details Alzheimer Disease: Father Status:Active FH: Parkinson's disease: Fat her(V17.2, Z82.0) Status:Active Family history of diabetes m ellitus: Aunt(V18.0, Z83.3) Status:Active Family history of heart dise ase: Father(V17.49, Z82.49) Status:Active Family history of hypertensi on: Mother(V17.49, Z82.49) Status:Active Family history of Alzheimer' s disease: Father, Grandmother(V17.2, Z82.0) Status:Active Unknown Family Member Name Dates Details Alzheimer Disease: Father Status:Active FH: Parkinson's disease: Fat her(V17.2, Z82.0) Status:Active Family history of diabetes m ellitus: Aunt(V18.0, Z83.3) Status:Active Family history of heart dise ase: Father(V17.49, Z82.49) Status:Active Family history of hypertensi on: Mother(V17.49, Z82.49) Status:Active Family history of Alzheimer' s disease: Father, Grandmother(V17.2, Z82.0) Status:Active Unknown Family Member Name Dates Details Alzheimer Disease: Father Status:Active FH: Parkinson's disease: Fat her(V17.2, Z82.0) Status:Active Family history of diabetes m ellitus: Aunt(V18.0, Z83.3) Status:Active Family history of heart dise ase: Father(V17.49, Z82.49) Status:Active Family history of hypertensi on: Mother(V17.49, Z82.49) Status:Active Family history of Alzheimer' s disease: Father, Grandmother(V17.2, Z82.0) Status:Active Unknown Family Member Name Dates Details Alzheimer Disease: Father Status:Active FH: Parkinson's disease: Fat her(V17.2, Z82.0) Status:Active Family history of diabetes m ellitus: Aunt(V18.0, Z83.3) Status:Active Family history of heart dise ase: Father(V17.49, Z82.49) Status:Active Family history of hypertensi on: Mother(V17.49, Z82.49) Status:Active Family history of Alzheimer' s disease: Father, Grandmother(V17.2, Z82.0) Status:Active Unknown Family Member Name Dates Details FH: Parkinson's disease: Fat her(V17.2, Z82.0) Status:Active Family history of diabetes m ellitus: Aunt(V18.0, Z83.3) Status:Active Family history of heart dise ase: Father(V17.49, Z82.49) Status:Active Family history of hypertensi on: Mother(V17.49, Z82.49) Status:Active Family history of Alzheimer' s disease: Father, Grandmother(V17.2, Z82.0) Status:Active Alzheimer Disease: Father Status:Active Unknown Family Member Name Dates Details FH: Parkinson's disease: Fat her(V17.2, Z82.0) Status:Active Family history of Alzheimer' s disease: Father, Grandmother(V17.2, Z82.0) Status:Active Family history of hypertensi on: Mother(V17.49, Z82.49) Status:Active Family history of heart dise ase: Father(V17.49, Z82.49) Status:Active Family history of diabetes m ellitus: Aunt(V18.0, Z83.3) Status:Active Alzheimer Disease: Father Status:Active Unknown Family Member Name Dates Details Alzheimer Disease: Father Status:Active FH: Parkinson's disease: Fat her(V17.2, Z82.0) Status:Active Family history of diabetes m ellitus: Aunt(V18.0, Z83.3) Status:Active Family history of heart dise ase: Father(V17.49, Z82.49) Status:Active Family history of hypertensi on: Mother(V17.49, Z82.49) Status:Active Family history of Alzheimer' s disease: Father, Grandmother(V17.2, Z82.0) Status:Active Unknown Family Member Name Dates Details Alzheimer Disease: Father Status:Active FH: Parkinson's disease: Fat her(V17.2, Z82.0) Status:Active Family history of diabetes m ellitus: Aunt(V18.0, Z83.3) Status:Active Family history of heart dise ase: Father(V17.49, Z82.49) Status:Active Family history of hypertensi on: Mother(V17.49, Z82.49) Status:Active Family history of Alzheimer' s disease: Father, Grandmother(V17.2, Z82.0) Status:Active Unknown Family Member Name Dates Details FH: Parkinson's disease: Fat her(V17.2, Z82.0) Status:Active Family history of Alzheimer' s disease: Father, Grandmother(V17.2, Z82.0) Status:Active Family history of hypertensi on: Mother(V17.49, Z82.49) Status:Active Family history of heart dise ase: Father(V17.49, Z82.49) Status:Active Family history of diabetes m ellitus: Aunt(V18.0, Z83.3) Status:Active Alzheimer Disease: Father Status:Active Unknown Family Member Name Dates Details FH: Parkinson's disease: Fat her(V17.2, Z82.0) Status:Active Family history of diabetes m ellitus: Aunt(V18.0, Z83.3) Status:Active Family history of heart dise ase: Father(V17.49, Z82.49) Status:Active Family history of hypertensi on: Mother(V17.49, Z82.49) Status:Active Family history of Alzheimer' s disease: Father, Grandmother(V17.2, Z82.0) Status:Active Alzheimer Disease: Father Status:Active Unknown Family Member Name Dates Details FH: Parkinson's disease: Fat her(V17.2, Z82.0) Status:Active Family history of diabetes m ellitus: Aunt(V18.0, Z83.3) Status:Active Family history of heart dise ase: Father(V17.49, Z82.49) Status:Active Family history of hypertensi on: Mother(V17.49, Z82.49) Status:Active Family history of Alzheimer' s disease: Father, Grandmother(V17.2, Z82.0) Status:Active Alzheimer Disease: Father Status:Active Unknown Family Member Name Dates Details FH: Parkinson's disease: Fat her(V17.2, Z82.0) Status:Active Family history of diabetes m ellitus: Aunt(V18.0, Z83.3) Status:Active Family history of heart dise ase: Father(V17.49, Z82.49) Status:Active Family history of hypertensi on: Mother(V17.49, Z82.49) Status:Active Family history of Alzheimer' s disease: Father, Grandmother(V17.2, Z82.0) Status:Active Family history of arterioscl erotic cardiovascular disease: Mother, Father, Brother(V17.49, Z82.49) Status:Active Alzheimer Disease: Father Status:Active Unknown Family Member Name Dates Details Alzheimer Disease: Father Status:Active FH: Parkinson's disease: Fat her(V17.2, Z82.0) Status:Active Family history of diabetes m ellitus: Aunt(V18.0, Z83.3) Status:Active Family history of heart dise ase: Father(V17.49, Z82.49) Status:Active Family history of hypertensi on: Mother(V17.49, Z82.49) Status:Active Family history of Alzheimer' s disease: Father, Grandmother(V17.2, Z82.0) Status:Active Family history of arterioscl erotic cardiovascular disease: Mother, Father, Brother(V17.49, Z82.49) Status:Active Unknown Family Member Name Dates Details FH: Parkinson's disease: Fat her(V17.2, Z82.0) Status:Active Family history of diabetes m ellitus: Aunt(V18.0, Z83.3) Status:Active Family history of heart dise ase: Father(V17.49, Z82.49) Status:Active Family history of hypertensi on: Mother(V17.49, Z82.49) Status:Active Family history of Alzheimer' s disease: Father, Grandmother(V17.2, Z82.0) Status:Active Family history of arterioscl erotic cardiovascular disease: Mother, Father, Brother(V17.49, Z82.49) Status:Active Alzheimer Disease: Father Status:Active Unknown Family Member Name Dates Details Alzheimer Disease: Father Status:Active FH: Parkinson's disease: Fat her(V17.2, Z82.0) Status:Active Family history of diabetes m ellitus: Aunt(V18.0, Z83.3) Status:Active Family history of heart dise ase: Father(V17.49, Z82.49) Status:Active Family history of hypertensi on: Mother(V17.49, Z82.49) Status:Active Family history of Alzheimer' s disease: Father, Grandmother(V17.2, Z82.0) Status:Active Family history of arterioscl erotic cardiovascular disease: Mother, Father, Brother(V17.49, Z82.49) Status:Active Unknown Family Member Name Dates Details Alzheimer Disease: Father Status:Active FH: Parkinson's disease: Fat her(V17.2, Z82.0) Status:Active Family history of diabetes m ellitus: Aunt(V18.0, Z83.3) Status:Active Family history of heart dise ase: Father(V17.49, Z82.49) Status:Active Family history of hypertensi on: Mother(V17.49, Z82.49) Status:Active Family history of Alzheimer' s disease: Father, Grandmother(V17.2, Z82.0) Status:Active Family history of arterioscl erotic cardiovascular disease: Mother, Father, Brother(V17.49, Z82.49) Status:Active Unknown Family Member Name Dates Details Alzheimer Disease: Father Status:Active FH: Parkinson's disease: Fat her(V17.2, Z82.0) Status:Active Family history of diabetes m ellitus: Aunt(V18.0, Z83.3) Status:Active Family history of heart dise ase: Father(V17.49, Z82.49) Status:Active Family history of hypertensi on: Mother(V17.49, Z82.49) Status:Active Family history of Alzheimer' s disease: Father, Grandmother(V17.2, Z82.0) Status:Active Family history of arterioscl erotic cardiovascular disease: Mother, Father, Brother(V17.49, Z82.49) Status:Active Unknown Family Member Name Dates Details Alzheimer Disease: Father Status:Active FH: Parkinson's disease: Fat her(V17.2, Z82.0) Status:Active Family history of diabetes m ellitus: Aunt(V18.0, Z83.3) Status:Active Family history of heart dise ase: Father(V17.49, Z82.49) Status:Active Family history of hypertensi on: Mother(V17.49, Z82.49) Status:Active Family history of Alzheimer' s disease: Father, Grandmother(V17.2, Z82.0) Status:Active Family history of arterioscl erotic cardiovascular disease: Mother, Father, Brother(V17.49, Z82.49) Status:Active Unknown Family Member Name Dates Details FH: Parkinson's disease: Fat her(V17.2, Z82.0) Status:Active Family history of arterioscl erotic cardiovascular disease: Mother, Father, Brother(V17.49, Z82.49) Status:Active Family history of Alzheimer' s disease: Father, Grandmother(V17.2, Z82.0) Status:Active Family history of hypertensi on: Mother(V17.49, Z82.49) Status:Active Family history of heart dise ase: Father(V17.49, Z82.49) Status:Active Family history of diabetes m ellitus: Aunt(V18.0, Z83.3) Status:Active Alzheimer Disease: Father Status:Active Unknown Family Member Name Dates Details FH: Parkinson's disease: Fat her(V17.2, Z82.0) Status:Active Family history of Alzheimer' s disease: Father, Grandmother(V17.2, Z82.0) Status:Active Family history of arterioscl erotic cardiovascular disease: Mother, Father, Brother(V17.49, Z82.49) Status:Active Family history of hypertensi on: Mother(V17.49, Z82.49) Status:Active Family history of heart dise ase: Father(V17.49, Z82.49) Status:Active Family history of diabetes m ellitus: Aunt(V18.0, Z83.3) Status:Active Alzheimer Disease: Father Status:Active Unknown Family Member Name Dates Details Alzheimer Disease: Father Status:Active FH: Parkinson's disease: Fat her(V17.2, Z82.0) Status:Active Family history of diabetes m ellitus: Aunt(V18.0, Z83.3) Status:Active Family history of heart dise ase: Father(V17.49, Z82.49) Status:Active Family history of hypertensi on: Mother(V17.49, Z82.49) Status:Active Family history of Alzheimer' s disease: Father, Grandmother(V17.2, Z82.0) Status:Active Family history of arterioscl erotic cardiovascular disease: Mother, Father, Brother(V17.49, Z82.49) Status:Active Unknown Family Member Name Dates Details Alzheimer Disease: Father Status:Active FH: Parkinson's disease: Fat her(V17.2, Z82.0) Status:Active Family history of diabetes m ellitus: Aunt(V18.0, Z83.3) Status:Active Family history of heart dise ase: Father(V17.49, Z82.49) Status:Active Family history of hypertensi on: Mother(V17.49, Z82.49) Status:Active Family history of Alzheimer' s disease: Father, Grandmother(V17.2, Z82.0) Status:Active Family history of arterioscl erotic cardiovascular disease: Mother, Father, Brother(V17.49, Z82.49) Status:Active Unknown Family Member Name Dates Details Alzheimer Disease: Father Status:Active FH: Parkinson's disease: Fat her(V17.2, Z82.0) Status:Active Family history of diabetes m ellitus: Aunt(V18.0, Z83.3) Status:Active Family history of heart dise ase: Father(V17.49, Z82.49) Status:Active Family history of hypertensi on: Mother(V17.49, Z82.49) Status:Active Family history of Alzheimer' s disease: Father, Grandmother(V17.2, Z82.0) Status:Active Family history of arterioscl erotic cardiovascular disease: Mother, Father, Brother(V17.49, Z82.49) Status:Active Unknown Family Member Name Dates Details Alzheimer Disease: Father Status:Active FH: Parkinson's disease: Fat her(V17.2, Z82.0) Status:Active Family history of diabetes m ellitus: Aunt(V18.0, Z83.3) Status:Active Family history of heart dise ase: Father(V17.49, Z82.49) Status:Active Family history of hypertensi on: Mother(V17.49, Z82.49) Status:Active Family history of Alzheimer' s disease: Father, Grandmother(V17.2, Z82.0) Status:Active Family history of arterioscl erotic cardiovascular disease: Mother, Father, Brother(V17.49, Z82.49) Status:Active Unknown Family Member Name Dates Details Alzheimer Disease: Father Status:Active FH: Parkinson's disease: Fat her(V17.2, Z82.0) Status:Active Family history of diabetes m ellitus: Aunt(V18.0, Z83.3) Status:Active Family history of heart dise ase: Father(V17.49, Z82.49) Status:Active Family history of hypertensi on: Mother(V17.49, Z82.49) Status:Active Family history of Alzheimer' s disease: Father, Grandmother(V17.2, Z82.0) Status:Active Family history of arterioscl erotic cardiovascular disease: Mother, Father, Brother(V17.49, Z82.49) Status:Active Unknown Family Member Name Dates Details Alzheimer Disease: Father Status:Active FH: Parkinson's disease: Fat her(V17.2, Z82.0) Status:Active Family history of diabetes m ellitus: Aunt(V18.0, Z83.3) Status:Active Family history of heart dise ase: Father(V17.49, Z82.49) Status:Active Family history of hypertensi on: Mother(V17.49, Z82.49) Status:Active Family history of Alzheimer' s disease: Father, Grandmother(V17.2, Z82.0) Status:Active Family history of arterioscl erotic cardiovascular disease: Mother, Father, Brother(V17.49, Z82.49) Status:Active Unknown Family Member Name Dates Details FH: Parkinson's disease: Fat her(V17.2, Z82.0) Status:Active Family history of diabetes m ellitus: Aunt(V18.0, Z83.3) Status:Active Family history of heart dise ase: Father(V17.49, Z82.49) Status:Active Family history of hypertensi on: Mother(V17.49, Z82.49) Status:Active Family history of Alzheimer' s disease: Father, Grandmother(V17.2, Z82.0) Status:Active Family history of arterioscl erotic cardiovascular disease: Mother, Father, Brother(V17.49, Z82.49) Status:Active Alzheimer Disease: Father Status:Active Unknown Family Member Name Dates Details Alzheimer Disease: Father Status:Active FH: Parkinson's disease: Fat her(V17.2, Z82.0) Status:Active Family history of diabetes m ellitus: Aunt(V18.0, Z83.3) Status:Active Family history of heart dise ase: Father(V17.49, Z82.49) Status:Active Family history of hypertensi on: Mother(V17.49, Z82.49) Status:Active Family history of Alzheimer' s disease: Father, Grandmother(V17.2, Z82.0) Status:Active Family history of arterioscl erotic cardiovascular disease: Mother, Father, Brother(V17.49, Z82.49) Status:Active Unknown Family Member Name Dates Details Alzheimer Disease: Father Status:Active FH: Parkinson's disease: Fat her(V17.2, Z82.0) Status:Active Family history of diabetes m ellitus: Aunt(V18.0, Z83.3) Status:Active Family history of heart dise ase: Father(V17.49, Z82.49) Status:Active Family history of hypertensi on: Mother(V17.49, Z82.49) Status:Active Family history of Alzheimer' s disease: Father, Grandmother(V17.2, Z82.0) Status:Active Family history of arterioscl erotic cardiovascular disease: Mother, Father, Brother(V17.49, Z82.49) Status:Active Relationship Condition Age at Onset Recorded Date/T patrick Not Specified No pertinent family history Unknown Unknown Family Member Name Dates Details Alzheimer Disease: Father Status:Active FH: Parkinson's disease: Fat her(V17.2, Z82.0) Status:Active Family history of diabetes m ellitus: Aunt(V18.0, Z83.3) Status:Active Family history of heart dise ase: Father(V17.49, Z82.49) Status:Active Family history of hypertensi on: Mother(V17.49, Z82.49) Status:Active Family history of Alzheimer' s disease: Father, Grandmother(V17.2, Z82.0) Status:Active Family history of arterioscl erotic cardiovascular disease: Mother, Father, Brother(V17.49, Z82.49) Status:Active Unknown Family Member Name Dates Details Alzheimer Disease: Father Status:Active FH: Parkinson's disease: Fat her(V17.2, Z82.0) Status:Active Family history of diabetes m ellitus: Aunt(V18.0, Z83.3) Status:Active Family history of heart dise ase: Father(V17.49, Z82.49) Status:Active Family history of hypertensi on: Mother(V17.49, Z82.49) Status:Active Family history of Alzheimer' s disease: Father, Grandmother(V17.2, Z82.0) Status:Active Family history of arterioscl erotic cardiovascular disease: Mother, Father, Brother(V17.49, Z82.49) Status:Active Unknown Family Member Name Dates Details Alzheimer Disease: Father Status:Active FH: Parkinson's disease: Fat her(V17.2, Z82.0) Status:Active Family history of diabetes m ellitus: Aunt(V18.0, Z83.3) Status:Active Family history of heart dise ase: Father(V17.49, Z82.49) Status:Active Family history of hypertensi on: Mother(V17.49, Z82.49) Status:Active Family history of Alzheimer' s disease: Father, Grandmother(V17.2, Z82.0) Status:Active Family history of arterioscl erotic cardiovascular disease: Mother, Father, Brother(V17.49, Z82.49) Status:Active Unknown Family Member Name Dates Details Alzheimer Disease: Father Status:Active FH: Parkinson's disease: Fat her(V17.2, Z82.0) Status:Active Family history of diabetes m ellitus: Aunt(V18.0, Z83.3) Status:Active Family history of heart dise ase: Father(V17.49, Z82.49) Status:Active Family history of hypertensi on: Mother(V17.49, Z82.49) Status:Active Family history of arterioscl erotic cardiovascular disease: Mother, Father, Brother(V17.49, Z82.49) Status:Active Family history of Alzheimer' s disease: Father, Grandmother(V17.2, Z82.0) Status:Active Unknown Family Member Name Dates Details Alzheimer Disease: Father Status:Active FH: Parkinson's disease: Fat her(V17.2, Z82.0) Status:Active Family history of diabetes m ellitus: Aunt(V18.0, Z83.3) Status:Active Family history of heart dise ase: Father(V17.49, Z82.49) Status:Active Family history of hypertensi on: Mother(V17.49, Z82.49) Status:Active Family history of Alzheimer' s disease: Father, Grandmother(V17.2, Z82.0) Status:Active Family history of arterioscl erotic cardiovascular disease: Mother, Father, Brother(V17.49, Z82.49) Status:Active Unknown Family Member Name Dates Details Alzheimer Disease: Father Status:Active FH: Parkinson's disease: Fat her(V17.2, Z82.0) Status:Active Family history of diabetes m ellitus: Aunt(V18.0, Z83.3) Status:Active Family history of heart dise ase: Father(V17.49, Z82.49) Status:Active Family history of hypertensi on: Mother(V17.49, Z82.49) Status:Active Family history of Alzheimer' s disease: Father, Grandmother(V17.2, Z82.0) Status:Active Family history of arterioscl erotic cardiovascular disease: Mother, Father, Brother(V17.49, Z82.49) Status:Active Unknown Family Member Name Dates Details Alzheimer Disease: Father Status:Active FH: Parkinson's disease: Fat her(V17.2, Z82.0) Status:Active Family history of diabetes m ellitus: Aunt(V18.0, Z83.3) Status:Active Family history of heart dise ase: Father(V17.49, Z82.49) Status:Active Family history of hypertensi on: Mother(V17.49, Z82.49) Status:Active Family history of arterioscl erotic cardiovascular disease: Mother, Father, Brother(V17.49, Z82.49) Status:Active Family history of Alzheimer' s disease: Father, Grandmother(V17.2, Z82.0) Status:Active Unknown Family Member Name Dates Details Alzheimer Disease: Father Status:Active FH: Parkinson's disease: Fat her(V17.2, Z82.0) Status:Active Family history of diabetes m ellitus: Aunt(V18.0, Z83.3) Status:Active Family history of heart dise ase: Father(V17.49, Z82.49) Status:Active Family history of hypertensi on: Mother(V17.49, Z82.49) Status:Active Family history of Alzheimer' s disease: Father, Grandmother(V17.2, Z82.0) Status:Active Family history of arterioscl erotic cardiovascular disease: Mother, Father, Brother(V17.49, Z82.49) Status:Active Unknown Family Member Name Dates Details Family history of arterioscl erotic cardiovascular disease: Mother, Father, Brother(V17.49, Z82.49) Status:Active Family history of hypertensi on: Mother(V17.49, Z82.49) Status:Active Family history of heart dise ase: Father(V17.49, Z82.49) Status:Active Family history of diabetes m ellitus: Aunt(V18.0, Z83.3) Status:Active FH: Parkinson's disease: Fat her(V17.2, Z82.0) Status:Active Alzheimer Disease: Father Status:Active Family history of Alzheimer' s disease: Father, Grandmother(V17.2, Z82.0) Status:Active Unknown Family Member Name Dates Details Alzheimer Disease: Father Status:Active FH: Parkinson's disease: Fat her(V17.2, Z82.0) Status:Active Family history of diabetes m ellitus: Aunt(V18.0, Z83.3) Status:Active Family history of heart dise ase: Father(V17.49, Z82.49) Status:Active Family history of hypertensi on: Mother(V17.49, Z82.49) Status:Active Family history of Alzheimer' s disease: Father, Grandmother(V17.2, Z82.0) Status:Active Family history of arterioscl erotic cardiovascular disease: Mother, Father, Brother(V17.49, Z82.49) Status:Active Unknown Family Member Name Dates Details FH: Parkinson's disease: Fat her(V17.2, Z82.0) Status:Active Family history of diabetes m ellitus: Aunt(V18.0, Z83.3) Status:Active Family history of heart dise ase: Father(V17.49, Z82.49) Status:Active Family history of hypertensi on: Mother(V17.49, Z82.49) Status:Active Family history of Alzheimer' s disease: Father, Grandmother(V17.2, Z82.0) Status:Active Family history of arterioscl erotic cardiovascular disease: Mother, Father, Brother(V17.49, Z82.49) Status:Active Alzheimer Disease: Father Status:Active Unknown Family Member Name Dates Details Alzheimer Disease: Father Status:Active FH: Parkinson's disease: Fat her(V17.2, Z82.0) Status:Active Family history of diabetes m ellitus: Aunt(V18.0, Z83.3) Status:Active Family history of heart dise ase: Father(V17.49, Z82.49) Status:Active Family history of hypertensi on: Mother(V17.49, Z82.49) Status:Active Family history of Alzheimer' s disease: Father, Grandmother(V17.2, Z82.0) Status:Active Family history of arterioscl erotic cardiovascular disease: Mother, Father, Brother(V17.49, Z82.49) Status:Active Unknown Family Member Name Dates Details Alzheimer Disease: Father Status:Active FH: Parkinson's disease: Fat her(V17.2, Z82.0) Status:Active Family history of diabetes m ellitus: Aunt(V18.0, Z83.3) Status:Active Family history of heart dise ase: Father(V17.49, Z82.49) Status:Active Family history of hypertensi on: Mother(V17.49, Z82.49) Status:Active Family history of Alzheimer' s disease: Father, Grandmother(V17.2, Z82.0) Status:Active Family history of arterioscl erotic cardiovascular disease: Mother, Father, Brother(V17.49, Z82.49) Status:Active Unknown Family Member Name Dates Details Alzheimer Disease: Father Status:Active FH: Parkinson's disease: Fat her(V17.2, Z82.0) Status:Active Family history of diabetes m ellitus: Aunt(V18.0, Z83.3) Status:Active Family history of heart dise ase: Father(V17.49, Z82.49) Status:Active Family history of hypertensi on: Mother(V17.49, Z82.49) Status:Active Family history of Alzheimer' s disease: Father, Grandmother(V17.2, Z82.0) Status:Active Family history of arterioscl erotic cardiovascular disease: Mother, Father, Brother(V17.49, Z82.49) Status:Active Unknown Family Member Name Dates Details Alzheimer Disease: Father Status:Active FH: Parkinson's disease: Fat her(V17.2, Z82.0) Status:Active Family history of diabetes m ellitus: Aunt(V18.0, Z83.3) Status:Active Family history of heart dise ase: Father(V17.49, Z82.49) Status:Active Family history of hypertensi on: Mother(V17.49, Z82.49) Status:Active Family history of Alzheimer' s disease: Father, Grandmother(V17.2, Z82.0) Status:Active Family history of arterioscl erotic cardiovascular disease: Mother, Father, Brother(V17.49, Z82.49) Status:Active Unknown Family Member Name Dates Details FH: Parkinson's disease: Fat her(V17.2, Z82.0) Status:Active Family history of diabetes m ellitus: Aunt(V18.0, Z83.3) Status:Active Family history of heart dise ase: Father(V17.49, Z82.49) Status:Active Family history of hypertensi on: Mother(V17.49, Z82.49) Status:Active Alzheimer Disease: Father Status:Active Family history of Alzheimer' s disease: Father, Grandmother(V17.2, Z82.0) Status:Active Family history of arterioscl erotic cardiovascular disease: Mother, Father, Brother(V17.49, Z82.49) Status:Active Unknown Family Member Name Dates Details Alzheimer Disease: Father Status:Active FH: Parkinson's disease: Fat her(V17.2, Z82.0) Status:Active Family history of diabetes m ellitus: Aunt(V18.0, Z83.3) Status:Active Family history of heart dise ase: Father(V17.49, Z82.49) Status:Active Family history of hypertensi on: Mother(V17.49, Z82.49) Status:Active Family history of Alzheimer' s disease: Father, Grandmother(V17.2, Z82.0) Status:Active Family history of arterioscl erotic cardiovascular disease: Mother, Father, Brother(V17.49, Z82.49) Status:Active Unknown Family Member Name Dates Details Alzheimer Disease: Father Status:Active FH: Parkinson's disease: Fat her(V17.2, Z82.0) Status:Active Family history of diabetes m ellitus: Aunt(V18.0, Z83.3) Status:Active Family history of heart dise ase: Father(V17.49, Z82.49) Status:Active Family history of hypertensi on: Mother(V17.49, Z82.49) Status:Active Family history of Alzheimer' s disease: Father, Grandmother(V17.2, Z82.0) Status:Active Family history of arterioscl erotic cardiovascular disease: Mother, Father, Brother(V17.49, Z82.49) Status:Active Unknown Family Member Name Dates Details FH: Parkinson's disease: Fat her(V17.2, Z82.0) Status:Active Family history of diabetes m ellitus: Aunt(V18.0, Z83.3) Status:Active Family history of heart dise ase: Father(V17.49, Z82.49) Status:Active Family history of hypertensi on: Mother(V17.49, Z82.49) Status:Active Family history of Alzheimer' s disease: Father, Grandmother(V17.2, Z82.0) Status:Active Family history of arterioscl erotic cardiovascular disease: Mother, Father, Brother(V17.49, Z82.49) Status:Active Alzheimer Disease: Father Status:Active Unknown Family Member Name Dates Details FH: Parkinson's disease: Fat her(V17.2, Z82.0) Status:Active Family history of diabetes m ellitus: Aunt(V18.0, Z83.3) Status:Active Family history of heart dise ase: Father(V17.49, Z82.49) Status:Active Family history of hypertensi on: Mother(V17.49, Z82.49) Status:Active Family history of Alzheimer' s disease: Father, Grandmother(V17.2, Z82.0) Status:Active Family history of arterioscl erotic cardiovascular disease: Mother, Father, Brother(V17.49, Z82.49) Status:Active Alzheimer Disease: Father Status:Active Unknown Family Member Name Dates Details Alzheimer Disease: Father Status:Active FH: Parkinson's disease: Fat her(V17.2, Z82.0) Status:Active Family history of diabetes m ellitus: Aunt(V18.0, Z83.3) Status:Active Family history of heart dise ase: Father(V17.49, Z82.49) Status:Active Family history of hypertensi on: Mother(V17.49, Z82.49) Status:Active Family history of Alzheimer' s disease: Father, Grandmother(V17.2, Z82.0) Status:Active Family history of arterioscl erotic cardiovascular disease: Mother, Father, Brother(V17.49, Z82.49) Status:Active Unknown Family Member Name Dates Details Alzheimer Disease: Father Status:Active FH: Parkinson's disease: Fat her(V17.2, Z82.0) Status:Active Family history of diabetes m ellitus: Aunt(V18.0, Z83.3) Status:Active Family history of heart dise ase: Father(V17.49, Z82.49) Status:Active Family history of hypertensi on: Mother(V17.49, Z82.49) Status:Active Family history of Alzheimer' s disease: Father, Grandmother(V17.2, Z82.0) Status:Active Family history of arterioscl erotic cardiovascular disease: Mother, Father, Brother(V17.49, Z82.49) Status:Active Unknown Family Member Name Dates Details Alzheimer Disease: Father Status:Active FH: Parkinson's disease: Fat her(V17.2, Z82.0) Status:Active Family history of diabetes m ellitus: Aunt(V18.0, Z83.3) Status:Active Family history of heart dise ase: Father(V17.49, Z82.49) Status:Active Family history of hypertensi on: Mother(V17.49, Z82.49) Status:Active Family history of Alzheimer' s disease: Father, Grandmother(V17.2, Z82.0) Status:Active Family history of arterioscl erotic cardiovascular disease: Mother, Father, Brother(V17.49, Z82.49) Status:Active Unknown Family Member Name Dates Details Alzheimer Disease: Father Status:Active FH: Parkinson's disease: Fat her(V17.2, Z82.0) Status:Active Family history of diabetes m ellitus: Aunt(V18.0, Z83.3) Status:Active Family history of heart dise ase: Father(V17.49, Z82.49) Status:Active Family history of hypertensi on: Mother(V17.49, Z82.49) Status:Active Family history of Alzheimer' s disease: Father, Grandmother(V17.2, Z82.0) Status:Active Family history of arterioscl erotic cardiovascular disease: Mother, Father, Brother(V17.49, Z82.49) Status:Active Unknown Family Member Name Dates Details FH: Parkinson's disease: Fat her(V17.2, Z82.0) Status:Active Family history of diabetes m ellitus: Aunt(V18.0, Z83.3) Status:Active Family history of heart dise ase: Father(V17.49, Z82.49) Status:Active Family history of hypertensi on: Mother(V17.49, Z82.49) Status:Active Family history of arterioscl erotic cardiovascular disease: Mother, Father, Brother(V17.49, Z82.49) Status:Active Family history of Alzheimer' s disease: Father, Grandmother(V17.2, Z82.0) Status:Active Alzheimer Disease: Father Status:Active Unknown Family Member Name Dates Details Alzheimer Disease: Father Status:Active FH: Parkinson's disease: Fat her(V17.2, Z82.0) Status:Active Family history of diabetes m ellitus: Aunt(V18.0, Z83.3) Status:Active Family history of heart dise ase: Father(V17.49, Z82.49) Status:Active Family history of hypertensi on: Mother(V17.49, Z82.49) Status:Active Family history of Alzheimer' s disease: Father, Grandmother(V17.2, Z82.0) Status:Active Family history of arterioscl erotic cardiovascular disease: Mother, Father, Brother(V17.49, Z82.49) Status:Active Unknown Family Member Name Dates Details Alzheimer Disease: Father Status:Active FH: Parkinson's disease: Fat her(V17.2, Z82.0) Status:Active Family history of diabetes m ellitus: Aunt(V18.0, Z83.3) Status:Active Family history of heart dise ase: Father(V17.49, Z82.49) Status:Active Family history of hypertensi on: Mother(V17.49, Z82.49) Status:Active Family history of Alzheimer' s disease: Father, Grandmother(V17.2, Z82.0) Status:Active Family history of arterioscl erotic cardiovascular disease: Mother, Father, Brother(V17.49, Z82.49) Status:Active Unknown Family Member Name Dates Details Alzheimer Disease: Father Status:Active FH: Parkinson's disease: Fat her(V17.2, Z82.0) Status:Active Family history of diabetes m ellitus: Aunt(V18.0, Z83.3) Status:Active Family history of heart dise ase: Father(V17.49, Z82.49) Status:Active Family history of hypertensi on: Mother(V17.49, Z82.49) Status:Active Family history of Alzheimer' s disease: Father, Grandmother(V17.2, Z82.0) Status:Active Family history of arterioscl erotic cardiovascular disease: Mother, Father, Brother(V17.49, Z82.49) Status:Active Unknown Family Member Name Dates Details Alzheimer Disease: Father Status:Active FH: Parkinson's disease: Fat her(V17.2, Z82.0) Status:Active Family history of diabetes m ellitus: Aunt(V18.0, Z83.3) Status:Active Family history of heart dise ase: Father(V17.49, Z82.49) Status:Active Family history of hypertensi on: Mother(V17.49, Z82.49) Status:Active Family history of arterioscl erotic cardiovascular disease: Mother, Father, Brother(V17.49, Z82.49) Status:Active Family history of Alzheimer' s disease: Father, Grandmother(V17.2, Z82.0) Status:Active Unknown Family Member Name Dates Details FH: Parkinson's disease: Fat her(V17.2, Z82.0) Status:Active Family history of arterioscl erotic cardiovascular disease: Mother, Father, Brother(V17.49, Z82.49) Status:Active Family history of hypertensi on: Mother(V17.49, Z82.49) Status:Active Family history of heart dise ase: Father(V17.49, Z82.49) Status:Active Family history of diabetes m ellitus: Aunt(V18.0, Z83.3) Status:Active Alzheimer Disease: Father Status:Active Family history of Alzheimer' s disease: Father, Grandmother(V17.2, Z82.0) Status:Active Unknown Family Member Name Dates Details Alzheimer Disease: Father Status:Active FH: Parkinson's disease: Fat her(V17.2, Z82.0) Status:Active Family history of diabetes m ellitus: Aunt(V18.0, Z83.3) Status:Active Family history of heart dise ase: Father(V17.49, Z82.49) Status:Active Family history of hypertensi on: Mother(V17.49, Z82.49) Status:Active Family history of Alzheimer' s disease: Father, Grandmother(V17.2, Z82.0) Status:Active Family history of arterioscl erotic cardiovascular disease: Mother, Father, Brother(V17.49, Z82.49) Status:Active Unknown Family Member Name Dates Details Alzheimer Disease: Father Status:Active FH: Parkinson's disease: Fat her(V17.2, Z82.0) Status:Active Family history of diabetes m ellitus: Aunt(V18.0, Z83.3) Status:Active Family history of heart dise ase: Father(V17.49, Z82.49) Status:Active Family history of hypertensi on: Mother(V17.49, Z82.49) Status:Active Family history of Alzheimer' s disease: Father, Grandmother(V17.2, Z82.0) Status:Active Family history of arterioscl erotic cardiovascular disease: Mother, Father, Brother(V17.49, Z82.49) Status:Active Unknown Family Member Name Dates Details Alzheimer Disease: Father Status:Active FH: Parkinson's disease: Fat her(V17.2, Z82.0) Status:Active Family history of diabetes m ellitus: Aunt(V18.0, Z83.3) Status:Active Family history of heart dise ase: Father(V17.49, Z82.49) Status:Active Family history of hypertensi on: Mother(V17.49, Z82.49) Status:Active Family history of Alzheimer' s disease: Father, Grandmother(V17.2, Z82.0) Status:Active Family history of arterioscl erotic cardiovascular disease: Mother, Father, Brother(V17.49, Z82.49) Status:Active Unknown Family Member Name Dates Details FH: Parkinson's disease: Fat her(V17.2, Z82.0) Status:Active Family history of diabetes m ellitus: Aunt(V18.0, Z83.3) Status:Active Family history of heart dise ase: Father(V17.49, Z82.49) Status:Active Family history of hypertensi on: Mother(V17.49, Z82.49) Status:Active Family history of Alzheimer' s disease: Father, Grandmother(V17.2, Z82.0) Status:Active Family history of arterioscl erotic cardiovascular disease: Mother, Father, Brother(V17.49, Z82.49) Status:Active Alzheimer Disease: Father Status:Active Unknown Family Member Name Dates Details Alzheimer Disease: Father Status:Active FH: Parkinson's disease: Fat her(V17.2, Z82.0) Status:Active Family history of diabetes m ellitus: Aunt(V18.0, Z83.3) Status:Active Family history of heart dise ase: Father(V17.49, Z82.49) Status:Active Family history of hypertensi on: Mother(V17.49, Z82.49) Status:Active Family history of Alzheimer' s disease: Father, Grandmother(V17.2, Z82.0) Status:Active Family history of arterioscl erotic cardiovascular disease: Mother, Father, Brother(V17.49, Z82.49) Status:Active Unknown Family Member Name Dates Details Alzheimer Disease: Father Status:Active FH: Parkinson's disease: Fat her(V17.2, Z82.0) Status:Active Family history of diabetes m ellitus: Aunt(V18.0, Z83.3) Status:Active Family history of heart dise ase: Father(V17.49, Z82.49) Status:Active Family history of hypertensi on: Mother(V17.49, Z82.49) Status:Active Family history of Alzheimer' s disease: Father, Grandmother(V17.2, Z82.0) Status:Active Family history of arterioscl erotic cardiovascular disease: Mother, Father, Brother(V17.49, Z82.49) Status:Active Unknown Family Member Name Dates Details Alzheimer Disease: Father Status:Active FH: Parkinson's disease: Fat her(V17.2, Z82.0) Status:Active Family history of diabetes m ellitus: Aunt(V18.0, Z83.3) Status:Active Family history of heart dise ase: Father(V17.49, Z82.49) Status:Active Family history of hypertensi on: Mother(V17.49, Z82.49) Status:Active Family history of Alzheimer' s disease: Father, Grandmother(V17.2, Z82.0) Status:Active Family history of arterioscl erotic cardiovascular disease: Mother, Father, Brother(V17.49, Z82.49) Status:Active Unknown Family Member Name Dates Details Alzheimer Disease: Father Status:Active FH: Parkinson's disease: Fat her(V17.2, Z82.0) Status:Active Family history of diabetes m ellitus: Aunt(V18.0, Z83.3) Status:Active Family history of heart dise ase: Father(V17.49, Z82.49) Status:Active Family history of hypertensi on: Mother(V17.49, Z82.49) Status:Active Family history of Alzheimer' s disease: Father, Grandmother(V17.2, Z82.0) Status:Active Family history of arterioscl erotic cardiovascular disease: Mother, Father, Brother(V17.49, Z82.49) Status:Active Unknown Family Member Name Dates Details Alzheimer Disease: Father Status:Active FH: Parkinson's disease: Fat her(V17.2, Z82.0) Status:Active Family history of diabetes m ellitus: Aunt(V18.0, Z83.3) Status:Active Family history of heart dise ase: Father(V17.49, Z82.49) Status:Active Family history of hypertensi on: Mother(V17.49, Z82.49) Status:Active Family history of Alzheimer' s disease: Father, Grandmother(V17.2, Z82.0) Status:Active Family history of arterioscl erotic cardiovascular disease: Mother, Father, Brother(V17.49, Z82.49) Status:Active Unknown Family Member Name Dates Details Alzheimer Disease: Father Status:Active FH: Parkinson's disease: Fat her(V17.2, Z82.0) Status:Active Family history of diabetes m ellitus: Aunt(V18.0, Z83.3) Status:Active Family history of heart dise ase: Father(V17.49, Z82.49) Status:Active Family history of hypertensi on: Mother(V17.49, Z82.49) Status:Active Family history of Alzheimer' s disease: Father, Grandmother(V17.2, Z82.0) Status:Active Family history of arterioscl erotic cardiovascular disease: Mother, Father, Brother(V17.49, Z82.49) Status:Active Unknown Family Member Name Dates Details Alzheimer Disease: Father Status:Active FH: Parkinson's disease: Fat her(V17.2, Z82.0) Status:Active Family history of diabetes m ellitus: Aunt(V18.0, Z83.3) Status:Active Family history of heart dise ase: Father(V17.49, Z82.49) Status:Active Family history of hypertensi on: Mother(V17.49, Z82.49) Status:Active Family history of Alzheimer' s disease: Father, Grandmother(V17.2, Z82.0) Status:Active Family history of arterioscl erotic cardiovascular disease: Mother, Father, Brother(V17.49, Z82.49) Status:Active Unknown Family Member Name Dates Details Alzheimer Disease: Father Status:Active FH: Parkinson's disease: Fat her(V17.2, Z82.0) Status:Active Family history of arterioscl erotic cardiovascular disease: Mother, Father, Brother(V17.49, Z82.49) Status:Active Family history of Alzheimer' s disease: Father, Grandmother(V17.2, Z82.0) Status:Active Family history of hypertensi on: Mother(V17.49, Z82.49) Status:Active Family history of heart dise ase: Father(V17.49, Z82.49) Status:Active Family history of diabetes m ellitus: Aunt(V18.0, Z83.3) Status:Active Unknown Family Member Name Dates Details Alzheimer Disease: Father Status:Active FH: Parkinson's disease: Fat her(V17.2, Z82.0) Status:Active Family history of diabetes m ellitus: Aunt(V18.0, Z83.3) Status:Active Family history of heart dise ase: Father(V17.49, Z82.49) Status:Active Family history of hypertensi on: Mother(V17.49, Z82.49) Status:Active Family history of Alzheimer' s disease: Father, Grandmother(V17.2, Z82.0) Status:Active Family history of arterioscl erotic cardiovascular disease: Mother, Father, Brother(V17.49, Z82.49) Status:Active Unknown Family Member Name Dates Details FH: Parkinson's disease: Fat her(V17.2, Z82.0) Status:Active Family history of arterioscl erotic cardiovascular disease: Mother, Father, Brother(V17.49, Z82.49) Status:Active Family history of Alzheimer' s disease: Father, Grandmother(V17.2, Z82.0) Status:Active Alzheimer Disease: Father Status:Active Family history of hypertensi on: Mother(V17.49, Z82.49) Status:Active Family history of heart dise ase: Father(V17.49, Z82.49) Status:Active Family history of diabetes m ellitus: Aunt(V18.0, Z83.3) Status:Active Relationship Condition Age at Onset Recorded Date/T patrick Not Specified No pertinent family history Unknown brother History of malignant neoplasm of prostate Unknown Malignant neoplasm Unknown father History of malignant neoplasm of prostate Unknown Heart disease Unknown Not Specified Hypertension Unknown Chronic obstructive pulmonary disease Unk nown Relationship Condition Age at Onset Recorded Date/T patrick Not Specified No pertinent family history Unknown brother History of malignant neoplasm of prostate Unknown Malignant neoplasm Unknown father History of malignant neoplasm of prostate Unknown Heart disease Unknown mother Hypertension Unknown Chronic obstructive pulmonary disease Unk nown Advance Directives No Advanced Directives Records FoundDocuments on File Type Date Recorded Patient Public Health Doctor Expl anation Advance Directives and Living Will Power of Cardiology Clinical Consultant Documents on File Type Date Recorded Patient Public Health Doctor Expl anation Advance Directives and Living Will Power of Cardiology Clinical Consultant Documents on File Type Date Recorded Patient Public Health Doctor Expl anation ACP-Advance Directive ACP-Power of Cardiology Clinical Consultant Advance Directive Response Recorded Date/ Time Advance Directives No October 29 4:43pm Advance Directive Response Recorded Date/ Time Advance Directives No October 29 3:43pm Hospital Course Note [id number] Admitted: 04/26/2018 Discharged: 04/28/2018 Date of : 1960 Physician: Peter Tavarez MD DISCHARGE SUMMARYPRINCIPAL DIAGNOSES:1. Sepsis likely secondary to complicated urinary tract infection/extended-spectrum beta-lactamases, multidrug-resistant Escherichia coli.2. Metabolic encephalopathy, likely secondary to above, resolved.3. Urinary tract infection, benign prostatic hyperplasia, neurogenic bladder.SECONDARY DIAGNOSES:1. Hypertension.2. Asthma.3. Osteoarthritis.4. History of CVA.5. Multiple allergies to antibiotics.DISCHARGE ATTENDING: Peter Tavarez [facility] PHYSICIAN: Dr. Rachel Rayo, phone [phone]: Urology consulted and Infection Disease consulted duringhospital stay.PHYSICAL EXAMINATION: GENERAL: Today, comfortable, no acute distress.Alert, awake, and oriented x3.HEENT: PERRLA.NECK: Supple.RESPIRATORY: Lung sounds clear.HEART: S1 and S2.ABDOMEN: Soft.NEUROLOGIC: No (more content not included)... Note HNO ID: [id number] Author: Deric sanchez (Ya Barajas Service: Orthopaedic Surgery Author Type: Nurse Practitioner Type: Discharge Summary Filed: 10/24/2019 9:19 AM Note Text: ORTHOPEDIC SURGERY DISCHARGE SUMMARY ADMISSION DATE: 10/16/2019 DISCHARGE DATE: 10/20/2019 Attending Physician: Dr. Castaneda Admitting Diagnosis: Garden 3 right hip fracture Discharge Diagnosis: Same as admitting Additional Diagnoses: ACTIVE PROBLEM LIST Variants of Migraine, Not Elsewhere Classified, With Intractable Migraine, So Stated, Without Mention of Status Migrainosus Carpal Tunnel Syndrome Cervicalgia Myalgia and Myositis, Unspecified Iron Deficiency Anemia Weakness Lymphadenopathy Closed Displaced Fracture of Right Femoral Neck (Hcc) Surgeries During Hospitalization: Procedure(s) (LRB): PERCUTANEOUS FIXATION FEMORAL FRACTURE, PROXIMAL END, NECK (Right) Consultations: Physical Therapy Case Management Hospital Course: The patient is a 59 year old male who has been followed by Dr. Roby BHATTI. It was determined he (more content not included)... Note HNO ID: [id number] Author: Deric Barajsa Service: Orthopaedic Surgery Author Type: Nurse Practitioner Type: Discharge Summary Filed: 01/23/2020 7:57 AM Note Text: Attestation signed by Hiral Castaneda at 01/23/2020 8:20 AM I evaluated the patient and personally participated in the antonio components. I agree with the resident's findings and plan as documented and have discussed the case and management of the patient's care with the resident. Signature: Hiral Castaneda MD Service Date: 01/23/2020 Service Time: 8:20 AM DISCHARGE SUMMARY PATIENT NAME: Velia Bagley ADMISSION DATE: 01/16/2020 DISCHARGE DATE: 01/21/2020 Attending Physician: Hiral Castaneda Code Status: Not on file Highest Readmission Risk Score: 30 The 30 day readmissions risk score is derived from an internally validated risk model which (more content not included)... Note HNO ID: [id number] Author: Skip Pettit Service: Hospital Medicine Author Type: Physician Type: Discharge Summary Filed: 02/22/2020 1:17 PM Note Text: DISCHARGE SUMMARY PATIENT NAME: Velia Bagley Code Status: Not on file Highest Readmission Risk Score: 27 The 30 day readmissions risk score is derived from an internally validated risk model which evaluates patient level characteristics, utilization history, medication orders and lab results up until the day of discharge. Patients with a score of 40 or above are considered highest risk for readmission. Specific patient level drivers will be listed at the bottom of the summary. Admission Information Admission Information ADMIT DATE: 01/24/2020 DISCHARGE DATE: January 27, 2020 [facility]: [facility] Doctor: Fanta Pettit Primary Care Provider: Rachel Rayo MD My Medical Team Members: Treatment Team: Attending Provider: Fanta Pettit Consulting: Hiral Castaneda Primary Service: Ak Ade Copper (more content not included)... Note HNO ID: [id number] Author: Slime Granda Service: Hospital Medicine Author Type: Physician Type: Discharge Summary Filed: 08/06/2020 3:15 PM Note Text: Pt admit on 07/29/2020 Pt dc to home with home care on 08/06/2020 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 (more content not included)... Note HNO ID: [id number] Author: Delbert Castaneda Service: Orthopaedic Surgery Author Type: Physician Type: Brief Op Note Filed: 01/16/2020 1:22 PM Note Text: BRIEF OPERATIVE / PROCEDURE NOTE TOTAL HIP ARTHROPLASTY LOG ID: [id number] Surgery/Procedure Date: 01/16/2020 Incision/Procedure Start Time: 11:50 AM Incision Close/Procedure End Time: Surgeon(s)/Proceduralist(s) and Silk Brusher(s): Surgeon(s) and Role: * Hiral Castaneda - Primary * Sally De Leon - Resident - Assisting Sizer Machine: Melissa Keenan SA Procedure(s): Procedure(s) (LRB): ARTHROPLASTY TOTAL HIP CONVERSION AFTER PREVIOUS HIP SURG (Right) REMOVAL HARDWARE FEMUR (Right) Anesthesia: General Approach: Posterior Findings: Nonunion of right femoral neck fracture Estimated Blood Loss: 350 mls Specimens: femoral head Complications: None IMPLANTS: * No implants in log * Implant: * No implants in log * Bearing Surface: Ceramic on Poly Fixation: Cementless Pre-Op/Pre-Procedure Diagnosis: Closed displaced fracture of right (more content not included)... History of Present Illness * Kaya Cancino PTA - 12/10/2018 12:22 PM EDT [facility] Daily Note Patient: Velia Bagley : 1960 [facility] #: [id number] Referring Practitioner: CARSON Stewart Referral Date : 11/10/18 Date: 12/10/2018 Diagnosis: Vertigo R42, LE weakness R53.1, Fall, sequela, W19.XXXS Treatment Diagnosis: BPPV, LE weakness Onset Date: 11/02/18 PT Insurance Information: [employer] Total # of Visits Approved: 15 Per Physician Order Total # of Visits to Date: 9 No Show: 0 Canceled Appointment: 1 Pre-Treatment Pain: 3/10 Subjective: Pt arrived to session rating pain in LB at 3/10 this date. Pt reports dizziness has been okay lately. Exercises: Exercise 1: HEP: OTB eversion 2x15 bilaterally, ankle DF with OTB 2x15 ea, Sink exercises (july, hip abduction, hamstring curls PF x10 ea) Exercise 6: SciFIT: LV 2.5, 10 min Exercise 7: Sit to stands 2x10 (bilateral UE assist with sit to stands) Exercise 8: July x10 ea, hip abduction x10 ea Exercise 10: FSU/LSU @ 6 x5 ea - no HR Exercise 11: Amb with SC: 3.5 large loops (~525') no SC today, fast slow/ fwd/ retro, july with CGA Exercise 13: PF at bar 2x10 Exercise 14: DF at counter 2x10 Exercise 15: Lateral amb at counter: length of counter x5 ea Assessment Assessment: Pt w/ 1 LOB during amb around big loop today w/o AD - pt stopped and able to recover. Increased reps on sit to stands for improved LE strength per pt goals. Pt showing increased fatigue following sit to stands, fwd/lateral step ups, and amb requiring seated RB's. Will continue to progress as able. Patient Education Pt educated on exercise rationale. Pt verbalized/demonstrated good understanding: [x] Yes [] No, pt required further clarification. Post Treatment Pain: 0/10 Plan Times per week: 3 Plan weeks: 5 Goals (Total # of Visits to Date: 9) Short Term Goals - Time Frame for Short term goals: 2 weeks Short term goal 1: Patient will be reassessed for LE weakness and balance once canalithiasis is cleared -MET [x]Met []Partially met []Not met Short term goal 2: Patient will have a negative L Valier-Hallpike indicating inactive canalithiasis -MET [x]Met []Partially met []Not met Short term goal 3: Patient's R posterior and horizontal canals will be assessed -MET [x]Met []Partially met []Not met []Met []Partially met []Not met Penitentiary Goals - Time Frame for terminal superintendent goals : 5 weeks custodial goal 1: Patient will be independent and compliant with a HEP -MET [x]Met []Partially met []Not met terminal superintendent goal 2: Patient will have a negative BPV testing. []Met []Partially met []Not met custodial goal 3: Patient will deny vertigo with rolling to his left in bed, bending, and ambulating []Met []Partially met []Not met terminal superintendent goal 4: Pt will improve bilateral LE strength to >/= 4/5 in all major joints and planes. []Met []Partially met []Not met terminal superintendent goal 5: Patient will improve romberg balance to >30 seconds and tandem stance to >15 seconds bilaterally. []Met []Partially met []Not met Minutes Tracking: Time In: 1134 Time Out: 1218 Minutes: 44 Kaya Cancino PTA Date: 12/10/2018 documented in this encounter* Melissa Bray - 01/17/2019 1:34 PM EDT [facility] Inpatient/Observation/Outpatient Rehabilitation Date: 01/17/2019 Patient Name: Velia Bagley [] Inpatient Acute/Observation [x] Outpatient : 1960 [x] Pt cancelled due to: [x] Sick/ill Lo took the call and asked me to cancel today's appointment and appointment due to patientbeing sick Melissa Bray Date: 01/17/2019 documented in this encounter* Jacki Rooney, MICHELLE - 06/07/2019 11:30 AM EST [facility] Therapy DAILY TREATMENT NOTE Date: 06/07/2019 Patient s Name: Velia Bagley Date of : 1960 (59 y.o.) Gender: male CSN #: [id number] Referring physician:Mychal Bautista Diagnosis: Diagnosis: Dysphagia R13.12, Dysphonia R49. 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 SHORT TERM GOALS/ TREATMENT SESSION: Subjective report: Patient pleasant and cooperative throughout therapy this date. Patient reports he did feel like he had a choking incident with chicken past week. Patient did not utilize supraglottic swallow prior to this. Patient reports he has been trying to utilize strategy, but reports inconsistent carryover. Goal 1: Patient will be independent with HEP Reports completing exercises at home. []Met [x]Partially met []Not met Goal 2: Patient will complete prescribed oropharyngeal exercsises 15x each independently Effortful swallow x 10 Laryngeal adduction x10 Chin tuck against resistance x 10 Margaret Maneuver x10 []Met [x]Partially met []Not met Goal 3: Patient will tolerate thin liquids and regular solids with no overt s/sx of asp/pen in 80% of opportunities. No overt s/sx of asp/pen with thin liquids. Regular solids not trialed. []Met [x]Partially met []Not met Goal 4: Patient will utilize compensatory swallowing strategies during a snack or meal in 90% of opportunities independently. Required min cues to utilize supraglottic swallow. []Met [x]Partially met []Not met Goal 5: Patient will complete vocal function/breathing exercises to improve breath support and vocal quality 15x each with minimal assistance from the clinician Completed x 15. Continued decreased breath support. Unable to produce phonation of /z/. Some possible vocal tremor noted this date. Patient reports he has had this for a while, but was able to compensate for it. Continued recommendation for ENT eval. []Met [x]Partially met []Not met MEDICAL SOCIAL WORKER GOALS/ TREATMENT SESSION: Goal 1: Patient will complete repeat MBS to ensure swallow safety and determine safest-least restrictive diet. Goal progressing. See STG data []Met [x]Partially met []Not met EDUCATION/HOME EXERCISE PROGRAM (HEP) New Education/HEP provided to patient/family/caregiver: [x]Yes: [x]No (Continued review of prior education) If yes Education Provided: Breath support exercises Method of Education: [x]Discussion []Demonstration [] Written []Other Evaluation of Patient s Response to Education: [x]Patient and or caregiver verbalized understanding []Patient and or Caregiver Demonstrated without assistance []Patient and or Caregiver Demonstrated with assistance []Needs additional instruction to demonstrate understanding of education ASSESSMENT Patient tolerated today s treatment session: [x] Good [] Fair [] Poor Limitations/difficulties with treatment session due to: []Pain []Fatigue []Other medical complications []Other Comments: PLAN [x]Continue with current plan of care []Medical Hold []I Hold per patient request [] Change Treatment plan: [] Insurance hold __ Other TIME Time Treatment session was INITIATED 1130 Time Treatment session was STOPPED 1215 Time Coded Treatment Minutes 45 Charges: 1 Electronically signed by: Jacki Rooney M.S., CCC-INVENTORY ASSOCIATE Date:06/07/2019 * Silvana Davenport - 06/07/2019 11:30 AM EST [employer] EXCHANGE SPEECH NEEDS PRE-CERTED PRINTED OFF FORM AND FAXED WITH CLINICAL INFORMATION AND DOCTORS SCRIPT. ONCE APPROVED COVERED AT 75% WITH A $10.00 CO-PAY ALSO HARD LIMIT 20 VISITS PER YEAR REFERENCE # [id number] documented in this encounter* Jacki Rooney SLP - 06/13/2019 2:45 PM EST [facility] DAILY TREATMENT NOTE Date: 06/13/2019 Patient s Name: Velia Bagley Date of : 1960 (59 y.o.) Gender: male CSN #: [id number] Referring physician:Mychal Bautista Diagnosis: Diagnosis: Dysphagia R13.12, Dysphonia R49. 0 INSURANCE INVENTORY ASSOCIATE Insurance Information: [employer] [place] Total # of Visits to Date: 4 No Show: 0 Canceled Appointment: 0 Current Authorization Comments: 4 PAIN [x]No []Yes Pain Rating (0-10 pain scale): 0 Location: N/A Pain Description: NA SUBJECTIVE Patient presents to clinic with self SHORT TERM GOALS/ TREATMENT SESSION: Subjective report: Patient pleasant and cooperative throughout therapy. Patient reports possible choking episode yesterday when eating cereal. Patient given strategies to improve ability to swallow mixed consistency foods (holding bolus in front of mouth prior to swallow). Patient reports he had to drink out of a straw over weekend and reports when he Goal 1: Patient will be independent with HEP Patient reports completing exercises the past week as prescribed. []Met [x]Partially met []Not met Goal 2: Patient will complete prescribed oropharyngeal exercsises 15x each independently Patient completed the following exercises: Effortful swallow x 10, Laryngeal adduction x 30 total Educated on use of Shaker Exercise. Completed with half time (30 second hold vs. 60 seconds) Educated on use of Debbie- completed x10 []Met [x]Partially met []Not met Goal 3: Patient will tolerate thin liquids and regular solids with no overt s/sx of asp/pen in 80% of opportunities. Thin: throat clear 1/10 trials with supraglottic swallow []Met [x]Partially met []Not met Goal 4: Patient will utilize compensatory swallowing strategies during a snack or meal in 90% of opportunities independently. Utilized in 90% of opportunities. []Met [x]Partially met []Not met Goal 5: Patient will complete vocal function/breathing exercises to improve breath support and vocal quality 15x each with minimal assistance from the clinician DNT this date. []Met [x]Partially met []Not met MEDICAL SOCIAL WORKER GOALS/ TREATMENT SESSION: Goal 1: Patient will complete repeat MBS to ensure swallow safety and determine safest-least restrictive diet. Goal progressing. See STG data []Met [x]Partially met []Not met Goal 2: Patient will demonstrate improved vocal function for daily communicative needs. Goal progressing. See STG data []Met [x]Partially met []Not met EDUCATION/HOME EXERCISE PROGRAM (HEP) New Education/HEP provided to patient/family/caregiver: []Yes: [x]No (Continued review of prior education) If yes Education Provided: Method of Education: [x]Discussion []Demonstration [] Written []Other Evaluation of Patient s Response to Education: [x]Patient and or caregiver verbalized understanding []Patient and or Caregiver Demonstrated without assistance []Patient and or Caregiver Demonstrated with assistance []Needs additional instruction to demonstrate understanding of education ASSESSMENT Patient tolerated today s treatment session: [x] Good [] Fair [] Poor Limitations/difficulties with treatment session due to: []Pain []Fatigue []Other medical complications []Other Comments: PLAN [x]Continue with current plan of care []Medical Hold []I Hold per patient request [] Change Treatment plan: [] Insurance hold __ Other TIME Time Treatment session was INITIATED 1545 Time Treatment session was STOPPED 1630 Time Coded Treatment Minutes 445 Charges: 1 Electronically signed by: Jacki Rooney M.S., CCC-INVENTORY ASSOCIATE' Date:06/13/2019 ] documented in this encounter* Jacki Rooney SLP - 07/15/2019 10:00 AM EDT [facility] DAILY TREATMENT NOTE Date: 07/15/2019 Patient s Name: Velia Bagley Date of : 1960 (59 y.o.) Gender: male [facility] #: [id number] Referring physician:Mychal Bautista Diagnosis: Diagnosis: Dysphagia R13.12, Dysphonia R49. 0 INSURANCE INVENTORY ASSOCIATE Insurance Information: [employer] [place] Total # of Visits to Date: 6 No Show: 0 Canceled Appointment: 1 Current Authorization Comments: 6 PAIN [x]No []Yes Pain Rating (0-10 pain scale): 0 Location: N/A Pain Description: NA SUBJECTIVE Patient presents to clinic with self. SHORT TERM GOALS/ TREATMENT SESSION: Subjective report: Patient went to ENT. Revealed No vocal fold movement impairment is noted. He does have significantoral dryness and reflux laryngeal edema. This likely accounts for his symptomatic complaints along with his decreased pulmonary reserve with his COPD. Medication related dry mouth is suspected which may exacerbate his reflux symptoms. Patient reports the following foods going the wrong way. Oatemeal- runny, dryMeatloaf, Potatoes, Cookie- dry . Patient given education re: utilizing condiments/gravies with foods, avoiding mixed-consistency foods, and utilizing breath hold and swallow. Patient does report frequent consumption of caffeine drinking 4-6 cans of Pepsi every day. Patient encouraged to drink less caffeine. Goal 1: Patient will be independent with HEP Reports being independent with swallowing exercises at home. []Met []Partially met []Not met Goal 2: Patient will complete prescribed oropharyngeal exercsises 15x each independently Effortful swallow x 15 independently. Debbie x 15 Tongue Pull backs x 15 Laryngeal adduction: x 10, 3 sets Independently Chin tuck against resistance x 15 []Met []Partially met []Not met Goal 3: Patient will tolerate thin liquids and regular solids with no overt s/sx of asp/pen in 80% of opportunities. Thin liquids via cup with breath hold with no overt s/sx of aspiration/penetration. Regular solids not trialed this date. []Met [x]Partially met []Not met Goal 4: Patient will utilize compensatory swallowing strategies during a snack or meal in 90% of opportunities independently. Utilized in 80% of opportunities independently. []Met [x]Partially met []Not met Goal 5: Patient will complete vocal function/breathing exercises to improve breath support and vocal quality 15x each with minimal assistance from the clinician Patient's voice mostly WFL this date with patient noting improvement in vocal quality []Met [x]Partially met []Not met MEDICAL SOCIAL WORKER GOALS/ TREATMENT SESSION: Goal 1: Patient will complete repeat MBS to ensure swallow safety and determine safest-least restrictive diet. Goal progressing. See STG data []Met [x]Partially met []Not met Goal 2: Patient will demonstrate improved vocal function for daily communicative needs. MET. Continue to reinforce vocal hygiene []Met []Partially met []Not met EDUCATION/HOME EXERCISE PROGRAM (HEP) New Education/HEP provided to patient/family/caregiver: []Yes: [x]No (Continued review of prior education) If yes Education Provided: Method of Education: [x]Discussion []Demonstration [] Written []Other Evaluation of Patient s Response to Education: [x]Patient and or caregiver verbalized understanding []Patient and or Caregiver Demonstrated without assistance []Patient and or Caregiver Demonstrated with assistance []Needs additional instruction to demonstrate understanding of education ASSESSMENT Patient tolerated today s treatment session: [x] Good [] Fair [] Poor Limitations/difficulties with treatment session due to: []Pain []Fatigue []Other medical complications []Other Comments: PLAN [x]Continue with current plan of care []Medical Hold []I Hold per patient request [] Change Treatment plan: [] Insurance hold __ Other TIME Time Treatment session was INITIATED 1000 Time Treatment session was STOPPED 1030 Time Coded Treatment Minutes 30 Charges: 1 Electronically signed by: Jacki Rooney M.S., CCC-INVENTORY ASSOCIATE Date:07/15/2019 documented in this encounter* Jacki Rooney SLP - 07/22/2019 10:00 AM EDT [facility] SPEECH THERAPY Cancel Note/ No Show Note Date: 07/20/2019 Patient Name: Velia Bagley : 1960 (59 y.o.) Gender: male REASON FOR MISSED TREATMENT: []Cancelled due to illness. [] Therapist Cancelled Appointment []Cancelled due to other appointment []No Show / No call. Pt called with next scheduled appointment. [] Cancelled due to transportation conflict []Cancelled due to weather []Frequency of order changed []Patient on hold due to: [x]OTHER: Cancelled as a precaution for COVID-19. Wishes to follow up in 2 weeks. Electronically signed by: Jacki Rooney M.S., CCC-INVENTORY ASSOCIATE Date:07/20/2019 documented in this encounter* Jacki Rooney SLP - 06/20/2019 2:45 PM EST [facility] DAILY TREATMENT NOTE Date: 06/20/2019 Patient s Name: Veila Bagley Date of : 1960 (59 y.o.) Gender: male CSN #: [id number] Referring physician:Mychal Bautista Diagnosis: Diagnosis: Dysphagia R13.12, Dysphonia R49. 0 INSURANCE INVENTORY ASSOCIATE Insurance Information: [employer] [place] Total # of Visits to Date: 5 No Show: 0 Canceled Appointment: 0 Current Authorization Comments: 5 PAIN [x]No []Yes Pain Rating (0-10 pain scale: 0 Location: N/A Pain Description: NA SUBJECTIVE Patient presents to clinic with self on-time. SHORT TERM GOALS/ TREATMENT SESSION: Subjective report: Patient pleasant throughout session. Reports continued choking episodes- with food. Various foods, chicken foods, porks. Voice Inhaler makes it worse. Goal 1: Patient will be independent with HEP Patient reports completing HEP at home. Reports difficulty consistently utilizing breath hold and swallow when eating/drinking. []Met [x]Partially met []Not met Goal 2: Patient will complete prescribed oropharyngeal exercsises 15x each independently Effortful swallow x 15 independently. Debbie x 15 Tongue Pull backs x 15 Laryngeal adduction: x 10, 3 sets Independently Chin tuck against resistance x 15 [x]Met []Partially met []Not met Goal 3: Patient will tolerate thin liquids and regular solids with no overt s/sx of asp/pen in 80% of opportunities. Patient drank thin liquids with no overt s/sx of asp/pen in 80% of opportunities. Cough x 1/10 and delayed cough x 1/10 when not utilizing breath hold and swallow. []Met [x]Partially met []Not met Goal 4: Patient will utilize compensatory swallowing strategies during a snack or meal in 90% of opportunities independently. DNT, reports difficulty implementing at home. []Met [x]Partially met []Not met Goal 5: Patient will complete vocal function/breathing exercises to improve breath support and vocal quality 15x each with minimal assistance from the clinician Ah prolongation: 12seconds , 7 seconds S: 13 seconds, 13 z Z: 11 seconds, 6 seconds. []Met []Partially met []Not met PRISON GOALS/ TREATMENT SESSION: Goal 1: Patient will complete repeat MBS to ensure swallow safety and determine safest-least restrictive diet. Goal progressing. See STG data []Met [x]Partially met []Not met Goal 2: Patient will demonstrate improved vocal function for daily communicative needs. Goal progressing. See STG data []Met [x]Partially met []Not met EDUCATION/HOME EXERCISE PROGRAM (HEP) New Education/HEP provided to patient/family/caregiver: []Yes: [x]No (Continued review of prior education) If yes Education Provided: Method of Education: [x]Discussion []Demonstration [] Written []Other Evaluation of Patient s Response to Education: [x]Patient and or caregiver verbalized understanding []Patient and or Caregiver Demonstrated without assistance []Patient and or Caregiver Demonstrated with assistance []Needs additional instruction to demonstrate understanding of education ASSESSMENT Patient tolerated today s treatment session: [x] Good [] Fair [] Poor Limitations/difficulties with treatment session due to: []Pain []Fatigue []Other medical complications []Other Comments: PLAN [x]Continue with current plan of care []Medical Hold []I Hold per patient request [] Change Treatment plan: [] Insurance hold __ Other TIME Time Treatment session was INITIATED 1440 Time Treatment session was STOPPED 1325 Time Coded Treatment Minutes 45 Charges: 1 Electronically signed by: Jacki Rooney M.S., CCC-INVENTORY ASSOCIATE Date:06/20/2019 documented in this encounter* Kodi Mancia, PT - 12/14/2018 12:27 PM EDT [facility] Therapy Daily Note Patient: Velia Bagley : 1960 CSN #: [id number] Referring Practitioner: CARSON Stewart Referral Date : 11/10/18 Date: 12/14/2018 Diagnosis: Vertigo R42, LE weakness R53.1, Fall, sequela, W19.XXXS Treatment Diagnosis: BPPV, LE weakness Onset Date: 11/02/18 PT Insurance Information: [employer] Total # of Visits Approved: 15 Per Physician Order Total # of Visits to Date: 10 No Show: 0 Canceled Appointment: 1 Pre-Treatment Pain: 0/10 Subjective: Pt reports dizziness returned Thursday. He reports he fell Thursday when standing up. Exercises: Exercise 2: L London x3 Assessment Body structures, Functions, Activity limitations: Decreased functional mobility , Decreased high-level IADLs, Decreased ADL status, Decreased endurance, Decreased strength, Decreased balance, Increased Pain, Vestibular Impairment Assessment: Pt with a positive L Jesu-Hallpike with upbeat and torsional nystagmus. Pt treated with the London maneuver x3 with decreasing nystagmus and symptoms. Pt given the Chavez Daroff maneuver with his HEP. Patient Education Patient Education: Post London precautions, new HEP. Pt verbalized/demonstrated good understanding: [x] Yes [] No, pt required further clarification. Post Treatment Pain: 0/10 Plan Times per week: 3 Plan weeks: 5 Goals (Total # of Visits to Date: 10) Short Term Goals - Time Frame for Short term goals: 2 weeks Short term goal 1: Patient will be reassessed for LE weakness and balance once canalithiasis is cleared -MET [x]Met []Partially met []Not met Short term goal 2: Patient will have a negative L Jesu-Hallpike indicating inactive canalithiasis -MET [x]Met []Partially met []Not met Short term goal 3: Patient's R posterior and horizontal canals will be assessed -MET [x]Met []Partially met []Not met []Met []Partially met []Not met Shaping Machine Tender Goals - Time Frame for terminal superintendent goals : 5 weeks terminal superintendent goal 1: Patient will be independent and compliant with a HEP -MET []Met []Partially met []Not met terminal superintendent goal 2: Patient will have a negative BPV testing. []Met []Partially met []Not met custodial goal 3: Patient will deny vertigo with rolling to his left in bed, bending, and ambulating []Met []Partially met []Not met custodial goal 4: Pt will improve bilateral LE strength to >/= 4/5 in all major joints and planes. []Met []Partially met []Not met terminal superintendent goal 5: Patient will improve romberg balance to >30 seconds and tandem stance to >15 seconds bilaterally. []Met []Partially met []Not met Minutes Tracking: Time In: 844 Time Out: 928 Minutes: 44 Kodi Mancia PT, DPT Date: 12/14/2018 documented in this encounter* Andra Gong - 12/15/2018 9:22 AM EDT [facility] Inpatient/Observation/Outpatient Rehabilitation Date: 12/15/2018 Patient Name: Velia Bagley [] Inpatient Acute/Observation [x] Outpatient : 1960 [] Pt no showed for scheduled appointment [] Pt refused/declined therapy at this time due to: [x] Pt cancelled due to: [] No Reason Given [] Sick/ill [x] Other: Patient called to cancel becauseson is sick and he needs to take him to the doctor. Andra Gong Date: 12/15/2018 documented in this encounter* Ewelina Rome - 01/12/2019 9:58 AM T [facility] Inpatient/Observation/Outpatient Rehabilitation Date: 01/12/2019 Patient Name: Velia Bagley [] Inpatient Acute/Observation [x] Outpatient : 1960 [] Pt no showed for scheduled appointment [] Pt refused/declined therapy at this time due to: [x] Pt cancelled due to: [] No Reason Given [x] Sick/ill [] Other: Pt called to cx appt due to still having bronchitis. Ewelina Rome Date: 01/12/2019 documented in this encounter Assessments Diagnosis Lymphadenopathy, inguinal Diagnosis Acute bronchitis, unspecified organism- Primary COPD exacerbation (HCC) Obstructive chronic bronchitis with exacerbation Diagnosis Dyslipidemia Other and unspecified hyperlipidemia Diagnosis Pneumonia of right middle lobe due to infectious organism (HCC) Diagnosis Recurrent aspiration pneumonia (HCC) Pneumonitis due to inhalation of food or vomitus Diagnosis Chronic obstructive pulmonary disease, unspecified COPD type (HCC) Diagnosis Lymphadenopathy, inguinal Diagnosis Cough Diagnosis Pneumonia of right middle lobe due to infectious organism (HCC) Diagnosis Pneumonia of right middle lobe due to infectious organism (HCC) Diagnosis Intractable migraine without aura and without status migrainosus Migraine without aura, with intractable migraine, so stated, without mention of status migrainosus Discharge Instructions * Instructions* Mo Lopez II, PA-C - 12/26/2018 Continue with current prednisone prescription * Attachments The following attachments cannot be sent through Care Everywhere. * Bronchitis (Haitian) * COPD: Prevent Lung Infections: General Info (Haitian) documented in this encounter* Instructions* Ronit Reynolds, BULL - 04/01/2019 [facility] POST-BRONCHOSCOPY INSTRUCTIONS 1. ACTIVITY No driving, operating machinery, or making important (legal) decisions for 24 hours. Resume normal activity after 24 hours. You may return to work after 24 hours. 2. DIET ____Resume you devin diet at . Please try a sip of cool water first, and if you are able to swallow normally you may then advance to your usual diet. 3. MEDICATIONS Resume your usual medications. 4. PHYSICIAN FOLLOW-UP ____Please call the office for an appointment/further instructions. 5. ADDITIONAL INSTRUCTIONS 6. CALL YOUR PHYSICIAN IF YOU EXPERIENCE ANY OF THE FOLLOWING: A. Difficulty breathing or respiratory distress. B. Sudden chest or shoulder pain. C. Persistent or uncontrollable cough. D. Coughing up excessive amounts of blood. (Small amounts of blood may be noted immediately after the examination. This should gradually decrease in amount and the color change from bright red to dark red or brown). E. High fever, chills, or excessive sweating. F. Redness or swelling at the IV site. 7. IF YOU HAVE ANY QUESTIONS, PLEASE CALL YOUR DOCTOR OR THE [facility] AT [phone]. documented in this encounter Reason for Referral Status Reason Specialty Diagnoses / Procedures Referre d By Contact Referred To Contact Closed Radiology Diagnoses Pneumonia of right middle lobe due to infectious organism (HCC) Procedures CT Chest W Contrast HC CT CHEST W/ CONTRAST Eliseo Garcia, DELIVERY PROFESSIONAL - METALLOGRAPHIC TECHNICIAN [address] [place] [id number] Status Reason Specialty Diagnoses / Procedures Re ferred By Contact Referred To Contact Open Diagnoses Severe persistent asthma without complication Procedures Full PFT Study With Bronchodilator Pa Patel MD [address] [place] [id number] Status Reason Specialty Diagnoses / Procedures Referre d By Contact Referred To Contact Open Radiology Diagnoses Pneumonia of right upper lobe due to infectious organism (HCC) Recurrent aspiration pneumonia (HCC) Procedures FL MODIFIED BARIUM SWALLOW W VIDEO HC FL MODIFIED BARIUM SWALLOW W VIDEO Mychal Bautista MD [facility] [address] [address] Reason *FU 07/28 bilat. S I joint injections Diagnosis 1 Lumbar pain (M54.50) Referral Organization [facility] Referring Provider First Name Jodie Referring Provider Last Name Natalio Referring Provider Specialty Neurologica l Surgery Referred Organization [facility] Referred Provider Wei Umana Referred Address [address] [place], [place],[address] Referred Provider Specialty Pain Medicin e Referral Priority Routine General Notes Courtney Awan M 023 09:52:34 AM >Received today. [facility] 's office request us to fill out form and fax referral to them and they will review the referral and call patient. Referral was fax Reason Aqua therapy for res trengthening Diagnosis 1 Lumbar pain (M54.50) Referral Organization [facility] Referring Provider First Name Jodie Referring Provider Last Name Blades Referring Provider Specialty Neurologica l Surgery Referred Organization Referred Address [address] [place], [place],[address] Referred Provider Specialty Physical The rapist Referral Priority Routine Reason Left AFO Diagnosis 1 Weakness of left derek t (R29.898) Referral Organization [facility] Referring Provider First Name Jodie Referring Provider Last Name Blades Referring Provider Specialty Neurologica l Surgery Referred Organization [facility] Referred Address [address] [place], [place],[address] Referred Provider Specialty DME Referral Priority Routine Specialty Diagnoses / Procedures Referred By Ronyac t Referred To Contact Cardiology Diagnoses Interstitial pulmonary disease, unspecified (CMS/HCC) Shortness of breath Procedures Transthoracic Echo (TTE) Complete PA ECHO TRANSTHORC R-T 2D W/WO M-MODE REC F-UP/LMTD PA DOP ECHOCARD COLOR FLOW VELOCITY MAPPING PA DOP ECHOCARD PULSE WAVE W/SPECTRAL F-UP/LMTD STD Rich Magana MD [facility] [address] [place] [address] Referral ID Status Reason Start Date Expiration Date Visits Requested Visits Authorized [id number] Authorized Perform Procedure 02/05/2023 08/04/2023 1 1 Specialty Diagnoses / Procedures Referred By Contac t Referred To Contact Diagnoses Intractable chronic migraine without aura and with status migrainosus Jodie Matthews MD [address] [place] [address] Referral ID Status Reason Start Date Expiration Date V isits Requested Visits Authorized [id number] Pending Review 03/25/2023 03/24/2024 1 1 Referral ID Status Reason Start Date Expiration Date V isits Requested Visits Authorized [id number] Pending Review 03/24/2023 03/23/2024 1 1 Specialty Diagnoses / Procedures Referred By Contac t Referred To Contact Diagnoses Chronic migraine without aura without status migrainosus, not intractable Jodie Matthews MD [address] [place] [address] Referral ID Status Reason Start Date Expiration Date V isits Requested Visits Authorized [id number] Pending Review 06/22/2023 06/21/2024 1 1 Procedure Findings Note HNO ID: [id number] Author: Delbert Castaneda Service: Orthopaedic Surgery Author Type: Physician Type: Brief Op Note Filed: 01/16/2020 1:22 PM Note Text: BRIEF OPERATIVE / PROCEDURE NOTE TOTAL HIP ARTHROPLASTY LOG ID: [id number] Surgery/Procedure Date: 01/16/2020 Incision/Procedure Start Time: 11:50 AM Incision Close/Procedure End Time: Surgeon(s)/Proceduralist(s) and Silk Brusher(s): Surgeon(s) and Role: * Hiarl Castaneda - Primary * Sally De Leon - Resident - Assisting Sizer Machine: Melissa Keenan SA Procedure(s): Procedure(s) (LRB): ARTHROPLASTY TOTAL HIP CONVERSION AFTER PREVIOUS HIP SURG (Right) REMOVAL HARDWARE FEMUR (Right) Anesthesia: General Approach: Posterior Findings: Nonunion of right femoral neck fracture Estimated Blood Loss: 350 mls Specimens: femoral head Complications: None IMPLANTS: * No implants in log * Implant: * No implants in log * Bearing Surface: Ceramic on Poly Fixation: Cementless Pre-Op/Pre-Procedure Diagnosis: Closed displaced fracture of right (more content not included)... Chief Complaint chest painEvery 90 day Botox injectionsFUV for chest painFUV for asthmaEvery 90 day Botox injectionsNew patient c/o post covid fatigue, constant SOBFUV for COVID long haul, asthmaintractable migraineEvery 90 day Botox injectionsEvery 90 day Botox injectionsEvery 90 day Botox injectionssleep apneaFollowup visit for infusion, COVID long haul, asthmaDizziness/vertigo/imbalancesleep apneaJACK SAVEDGE is here for a follow-up visit.Followup visit for infusion, COVID long haul, asthmaVideonystagmography (VNG)Follow up visit, following up with PCP on , sore throat comes and goesFollowup visit for immunoglobulin infusion, COVID long haul, asthma, and fasenraFollowup visit S/P hospitalizationFollowup visit S/P hospitalizationintractable migraineVELIA BAGLEY is here for a follow- up visit.Every 90 day Botox injectionsVELIA BAGLEY is here for a follow-up visit.* Every 90 day Botox injections * onobotulinumtoxinA toxin A ([facility]- 5578-2510 01) * Every 90 day Botox injections * onobotulinumtoxinA toxin A (ND- ) VELIA BAGLEY is here for a follow-up visit.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 a follow-up visit. FUV: Wheezing, memory issues, brain fog, head and chest colds.Followup visit for antipneumococcal polysaccharide antibody deficiencyFUV: SOB, brain fog, fatigue,cough.VELIA BAGLEY is here for a follow-up visit.Followup visit for antipneumococcal polysaccharide antibody deficiencyFollowup visit for antipneumococcal polysaccharide antibody deficiencyFollowup visit for antipneumococcal polysaccharide antibody deficiency* Every 90 day Botox injections * onobotulinumtoxinA toxin A ([facility]- 9213-6257 01) 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 a follow-up visit.FUV* Every 90 day Botox injections * onobotulinumtoxinA toxin A ([facility]- [id number] 01) * Every 90 day Botox injections * onobotulinumtoxinA toxin A (ND- ) VELIA BAGLEY is here for a follow-up visit. 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) Chief Complaint fall suture removal Anemia Reason for Visit 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) Chief Complaint suture removal Anemia M25.551 M25.552 pain Reason for Visit 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) Chief Complaint Anemia M25.551 M25.552 pain D50.0 F32.A Reason for Visit 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) Chief Complaint Anemia Reason for Visit 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) Chief Complaint Zilretta Rt Knee Buy And Bill Anemia Reason for Visit 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) Chief Complaint Anemia Wellness M17.0 - Bilateral primary osteoarthritis of knee OP SP BILAT KNEE PAIN Reason for Visit 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) Hypokalemia Pernicious anemia Post-COVID syndrome RTA (renal tubular acidosis) Wellness examination Bilateral primary osteoarthritis of knee Chief Complaint Anemia Wellness M17.0 - Bilateral primary osteoarthritis of knee OP SP BILAT KNEE PAIN Confusion, not feeling like himself Reason for Visit 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) Hypokalemia Pernicious anemia Post-COVID syndrome RTA (renal tubular acidosis) Wellness examination Bilateral primary osteoarthritis of knee Acute febrile illness Chief Complaint Anemia Wellness M17.0 - Bilateral primary osteoarthritis of knee OP SP BILAT KNEE PAIN Confusion, not feeling like himself BILAT ZILRETTA INJ Reason for Visit 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) Hypokalemia Pernicious anemia Post-COVID syndrome RTA (renal tubular acidosis) Wellness examination Bilateral primary osteoarthritis of knee Acute febrile illness Bilateral primary osteoarthritis of knee Chief Complaint Anemia Wellness M17.0 - Bilateral primary osteoarthritis of knee OP SP BILAT KNEE PAIN Confusion, not feeling like himself BILAT ZILRETTA INJ b12 Reason for Visit 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) Hypokalemia Pernicious anemia Post-COVID syndrome RTA (renal tubular acidosis) Wellness examination Bilateral primary osteoarthritis of knee Acute febrile illness Bilateral primary osteoarthritis of knee Chief Complaint Wellness M17.0 - Bilateral primary osteoarthritis of knee OP SP BILAT KNEE PAIN Confusion, not feeling like himself BILAT ZILRETTA INJ b12 Anemia Reason for Visit Hypokalemia Pernicious anemia Post-COVID syndrome RTA (renal tubular acidosis) Wellness examination Bilateral primary osteoarthritis of knee Acute febrile illness Bilateral primary osteoarthritis of knee 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c) Chief Complaint M17.0 - Bilateral pr imary osteoarthritis of knee OP SP BILAT KNEE PAIN Confusion, not feeling like himself BILAT ZILRETTA INJ b12 Anemia check up - brusing fell yesterday, hit head, headache Reason for Visit Bilateral primary os teoarthritis of knee Acute febrile illness Bilateral primary osteoarthritis of knee 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) Arthralgia Fatigue Hypokalemia Chief Complaint Confusion, not feeli ng like himself BILAT ZILRETTA INJ b12 Anemia check up - brusing fell yesterday, hit head, headache head cold, cough, drainage, since Reason for Visit Acute febrile illnes s Bilateral primary osteoarthritis of knee 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) Arthralgia Fatigue Hypokalemia Bronchitis Chief Complaint BILAT ZILRETTA INJ b12 Anemia check up - brusing fell yesterday, hit head, headache head cold, cough, drainage, since TBH follow up Reason for Visit Bilateral primary os teoarthritis of knee 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) Arthralgia Fatigue Hypokalemia Bronchitis Chief Complaint b12 Anemia check up - brusing fell yesterday, hit head, headache head cold, cough, drainage, since TBH follow up M25.572 - Pain in left ankle and joints of left fo OP ABSTRACTER LT ANKLE PAIN, SP CARMEN KNEE PAIN Reason for Visit 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) Arthralgia Fatigue Hypokalemia Bronchitis Arthritis of left ankle Bilateral primary osteoarthritis of knee Left ankle pain Pain of left calf Chief Complaint b12 check up - brusing fell yesterday, hit head, headache head cold, cough, drainage, since TBH follow up M25.572 - Pain in left ankle and joints of left fo OP ABSTRACTER LT ANKLE PAIN, SP CARMEN KNEE PAIN m79.662 Anemia Reason for Visit 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) Arthralgia Fatigue Hypokalemia Bronchitis Arthritis of left ankle Bilateral primary osteoarthritis of knee Left ankle pain Pain of left calf 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c) Chief Complaint check up - brusing fell yesterday, hit head, headache head cold, cough, drainage, since TB follow up M25.572 - Pain in left ankle and joints of left fo OP ABSTRACTER LT ANKLE PAIN, SP CARMEN KNEE PAIN m79.662 Anemia Follow Up Reason for Visit 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) Arthralgia Fatigue Hypokalemia Bronchitis Bronchitis Pernicious anemia Arthritis of left ankle Bilateral primary osteoarthritis of knee Left ankle pain Pain of left calf 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) Chief Complaint TB follow up M25.572 - Pain in left ankle and joints of left fo OP ABSTRACTER LT ANKLE PAIN, SP CARMEN KNEE PAIN m79.662 Anemia Follow Up BILAT KNEE ZILRETTA INJECTIONS Reason for Visit Bronchitis Pernicious anemia Arthritis of left ankle Bilateral primary osteoarthritis of knee Left ankle pain Pain of left calf 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) Bilateral primary osteoarthritis of knee Chief Complaint TB follow up M25.572 - Pain in left ankle and joints of left fo OP ABSTRACTER LT ANKLE PAIN, SP CARMEN KNEE PAIN m79.662 Anemia Follow Up BILAT KNEE ZILRETTA INJECTIONS b12 Shot Reason for Visit Bronchitis Pernicious anemia Arthritis of left ankle Bilateral primary osteoarthritis of knee Left ankle pain Pain of left calf 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) Bilateral primary osteoarthritis of knee Chief Complaint M25.572 - Pain in le ft ankle and joints of left fo OP ABSTRACTER LT ANKLE PAIN, SP CARMEN KNEE PAIN m79.662 Anemia Follow Up BILAT KNEE ZILRETTA INJECTIONS b12 Shot CC Adult Risk Stratification weight fluctuation, energy levels Reason for Visit Arthritis of left an kle Bilateral primary osteoarthritis of knee Left ankle pain Pain of left calf 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) Bilateral primary osteoarthritis of knee Chief Complaint Admit Date B12 shot May 03, 2024 10:48am Anemia May 27, 2024 1 :01pm OP SP RT KNEE PAIN May 31, 2024 1 :13pm Reason for Visit Admit Date Pernicious anemia May 03, 2024 10:48am 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) May 27, 2024 1:01pm Bilateral primary osteoarthritis of knee May 31, 2024 1:13pm Chief Complaint Admit Date B12 shot May 03, 2024 10:48am OP SP RT KNEE PAIN May 31, 2024 1 :13pm Follow Up May 31, 2024 2 :52pm Anemia May 31, 2024 3 :05pm Reason for Visit Admit Date Pernicious anemia May 03, 2024 10:48am Bilateral primary osteoarthritis of knee May 31, 2024 1:13pm 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) May 31, 2024 3:05pm Chief Complaint Admit Date B12 shot May 03, 2024 10:48am OP SP RT KNEE PAIN May 31, 2024 1 :13pm Follow Up May 31, 2024 2 :52pm Anemia May 31, 2024 3 :05pm Wellness July 07, 2024 10:2 9am Reason for Visit Admit Date Pernicious anemia May 03, 2024 10:48am Bilateral primary osteoarthritis of knee May 31, 2024 1:13pm 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) May 31, 2024 2:52pm 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) May 31, 2024 3:05pm Wellness examination July 07, 2024 10: 29am Chief Complaint Admit Date B12 shot May 03, 2024 10:48am OP SP RT KNEE PAIN May 31, 2024 1 :13pm Follow Up May 31, 2024 2 :52pm Anemia May 31, 2024 3 :05pm Wellness July 07, 2024 10:2 9am BILAT KNEE ZILRETTA INJ July 07, 2024 1:21pm Reason for Visit Admit Date Pernicious anemia May 03, 2024 10:48am Bilateral primary osteoarthritis of knee May 31, 2024 1:13pm 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) May 31, 2024 2:52pm 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) May 31, 2024 3:05pm Asthma July 07, 2024 10:2 9am Bilateral primary osteoarthritis of knee July 07, 2024 10:29am Migraines July 07, 2024 10:2 9am Pernicious anemia July 07, 2024 10:2 9am Wellness examination July 07, 2024 10: 29am Chief Complaint Admit Date OP SP RT KNEE PAIN May 31, 2024 1 :13pm Follow Up May 31, 2024 2 :52pm Anemia May 31, 2024 3 :05pm Wellness July 07, 2024 10:2 9am BILAT KNEE ZILRETTA INJ July 07, 2024 1:21pm B12 Shot August 24, 2024 10: 49am Reason for Visit Admit Date Bilateral primary osteoarthritis of knee May 31, 2024 1:13pm 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) May 31, 2024 2:52pm 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) May 31, 2024 3:05pm Asthma July 07, 2024 10:2 9am Bilateral primary osteoarthritis of knee July 07, 2024 10:29am Migraines July 07, 2024 10:2 9am Pernicious anemia July 07, 2024 10:2 9am Wellness examination July 07, 2024 10: 29am Bilateral primary osteoarthritis of knee July 07, 2024 1:21pm Additional Source Comments (unrecognized sect ion and content) No Status Records FoundNo Status Records FoundNo Status Records FoundNo Status Records FoundNo Status Records FoundNo Status Records FoundNo Status Records FoundNo Status Records FoundNo Status Records FoundNo Status Records FoundNo Status Records FoundNo Status Records FoundNo Status Records FoundNo Status Records FoundNo Status Records FoundNo Status Records FoundNo Status Records FoundNo Status Records FoundNo Status Records FoundNo Status Records FoundNo Status Records FoundNo Status Records FoundNo Status Records FoundNo Status Records FoundNo Status Records Found INFORMATION SOURCE (unrecogn ized section and content) DATE CREATED AUTHOR 10/27/2017 [facility] DATE CREATED AUTHOR AUTHOR'S ORGANIZ ATION 10/27/2017 [facility] DATE CREATED AUTHOR AUTHOR'S ORGANIZ ATION 05/12/2018 [facility] DATE CREATED AUTHOR AUTHOR'S ORGANIZ ATION 12/09/2019 [facility] DATE CREATED AUTHOR AUTHOR'S ORGANIZ ATION 08/07/2020 [facility] DATE CREATED AUTHOR AUTHOR'S ORGANIZ ATION 08/14/2020 [facility] DATE CREATED AUTHOR AUTHOR'S ORGANIZ ATION 09/15/2020 [facility] DATE CREATED AUTHOR AUTHOR'S ORGANIZ ATION 04/07/2021 [facility] DATE CREATED AUTHOR AUTHOR'S ORGANIZ ATION 06/08/2021 [facility] DATE CREATED AUTHOR AUTHOR'S ORGANIZ ATION 07/20/2022 [facility] DATE CREATED AUTHOR AUTHOR'S ORGANIZ ATION 08/08/2022 [facility] DATE CREATED AUTHOR AUTHOR'S ORGANIZ ATION 08/16/2022 [facility] DATE CREATED AUTHOR AUTHOR'S ORGANIZ ATION 09/03/2022 [facility] DATE CREATED AUTHOR AUTHOR'S ORGANIZ ATION 01/22/2023 [facility] DATE CREATED AUTHOR AUTHOR'S ORGANIZ ATION 02/04/2023 [facility] DATE CREATED AUTHOR AUTHOR'S ORGANIZ ATION 03/13/2023 [facility] DATE CREATED AUTHOR AUTHOR'S ORGANIZ ATION 12/14/2023 [facility] DATE CREATED AUTHOR AUTHOR'S ORGANIZ ATION 08/19/2024 [facility] DATE CREATED AUTHOR AUTHOR'S ORGANIZ ATION 09/01/2024 [facility] DATE CREATED AUTHOR AUTHOR'S ORGANIZ ATION 09/14/2024 [facility] DATE CREATED AUTHOR AUTHOR'S ORGANIZ ATION 09/15/2024 [facility] DATE CREATED AUTHOR AUTHOR'S ORGANIZ ATION 09/16/2024 [facility] DATE CREATED AUTHOR AUTHOR'S ORGANIZ ATION 09/16/2024 [facility] DATE CREATED AUTHOR AUTHOR'S ORGANIZ ATION 09/20/2024 [facility] DATE CREATED AUTHOR AUTHOR'S ORGANIZ ATION 09/27/2024 [facility] Reason for Visit (unrecogniz ed section and content) Reason Comments Migraine Every 90 day Botox i njectionsonobotulinumtoxinA toxin A ([facility]- 8689-6345 01) Specialty Diagnoses / Procedures Referred By Contac t Referred To Contact Diagnoses Intractable chronic migraine without aura and with status migrainosus Jodie Matthews MD [address] [facility] [address] [place] [address] Referral ID Status Reason Start Date Expiration Date V isits Requested Visits Authorized [id number] Pending Review 04/15/2023 04/14/2024 1 1 Reason Comments Shortness of Breath started with cough 2 days ago, states sputum is thick and brown now Status Reason Specialty Diagnoses / Procedures Referre d By Contact Referred To Contact Diagnoses RIGHT MIDDLE LOBE COLLAPSE Procedures PA OFFICE/OUTPT VISIT,PROCEDURE ONLY BRONCHOSCOPY Dayton Fulton MD [address] [address] [facility] Status Reason Specialty Diagnoses / Procedures Referre d By Contact Referred To Contact Closed Radiology Diagnoses Pneumonia of right middle lobe due to infectious organism (HCC) Procedures CT Chest W Contrast HC CT CHEST W/ CONTRAST Eliseo Garcia, DELIVERY PROFESSIONAL - METALLOGRAPHIC TECHNICIAN [address] [address] Status Reason Specialty Diagnoses / Procedures Referred By Contact Referred To Contact Pending Review Radiology Diagnoses Lymphadenopathy, inguinal Procedures CT ABDOMEN PELVIS W IV CONTRAST Additional Contrast? Oral CT ABDOMEN PELVIS W WO CONTRAST CHG CT SCAN,ABDOMENT AND PELVIS,COMBO CHG CT SCAN,ABDOMENT AND PELVIS,W CONTRAST Ruth Farah MD [address] [place] [address] Reason Comments Dizziness patient was visiting in ICU his terminally ill daughter and per the family he had a syncopal episode. Reason Comments Shortness of Breath patient states he is a COVID long hauler has had pneumonia twice post COVID. states he was hypoxic this morning in the 80's. Status Reason Specialty Diagnoses / Procedures Re ferred By Contact Referred To Contact Open Diagnoses Severe persistent asthma without complication Procedures Full PFT Study With Bronchodilator Pa Patel MD [address] [address] Status Reason Specialty Diagnoses / Procedures Referre d By Contact Referred To Contact Open Radiology Diagnoses Pneumonia of right upper lobe due to infectious organism (HCC) Recurrent aspiration pneumonia (HCC) Procedures FL MODIFIED BARIUM SWALLOW W VIDEO HC FL MODIFIED BARIUM SWALLOW W VIDEO Mychal Bautista MD [address] [address] Status Reason Specialty Diagnoses / Procedures Referred By Contact Referred To Contact Open Specialty Services Required Speech Pathology / Speech Therapy Diagnoses Oropharyngeal dysphagia Mychal Bautista MD [address] [address] [facility] Speech Therapy [address] [place] [address] Specialty Diagnoses / Procedures Referred By Ronyac t Referred To Contact Cardiology Diagnoses Interstitial pulmonary disease, unspecified (CMS/HCC) Shortness of breath Procedures Transthoracic Echo (TTE) Complete PA ECHO TRANSTHORC R-T 2D W/WO M-MODE REC F-UP/LMTD PA DOP ECHOCARD COLOR FLOW VELOCITY MAPPING PA DOP ECHOCARD PULSE WAVE W/SPECTRAL F-UP/LMTD STD Rich Magana MD [facility] [address] [place] [address] Referral ID Status Reason Start Date Expiration Date Visits Requested Visits Authorized [id number] Authorized Perform Procedure 02/05/2023 08/04/2023 1 1 Reason Comments Migraine Intractable migraine Referral ID Status Reason Start Date Expiration Date V isits Requested Visits Authorized [id number] Pending Review 03/24/2023 03/23/2024 1 1 Reason Comments Follow-up Fatigue Specialty Diagnoses / Procedures Referred By Contac t Referred To Contact Diagnoses Intractable chronic migraine without aura and with status migrainosus Jodie Matthews MD [address] [place] [address] Reason Comments Migraine 6 month FUV Reason Comments Migraine Every 90 day Botox i njectionsonobotulinumtoxinA toxin A ([facility]- [id number] 01) Specialty Diagnoses / Procedures Referred By Contac t Referred To Contact Diagnoses Chronic migraine without aura without status migrainosus, not intractable Jodie Matthews MD [address] [place] [phone] Referral ID Status Reason Start Date Expiration Date V isits Requested Visits Authorized [id number] Pending Review 07/15/2023 07/14/2024 1 1 Reason Comments Follow-up Pt states he fell ma y 13th, he lost consciousness for 3 minutes. He states he sleeps for 16-18 hours a day, still having vertigo issues 2/3 times a day and has to stabilize himself often. Specialty Diagnoses / Procedures Referred By [facility] t Referred To Contact Neurology Diagnoses Post concussion syndrome Jodie Matthews MD [address] [place] [id number] Referral ID Status Reason Start Date Expiration Date Visits Requested Visits Authorized [id number] Authorized Consult and Treat 09/22/2023 09/21/2024 1 1 Reason Comments Migraine Botulinum Toxin Injection Every 90 day B otox injectionsonobotulinumtoxinA toxin A ([facility]- [id number] ) Referral ID Status Reason Start Date Expiration Date V isits Requested Visits Authorized [id number] Pending Review 10/12/2023 10/11/2024 1 1 Reason Comments Immunodeficiency Asthma Allergic Rhinitis 3 month follow up, A CT 8 Reason Comments Follow-up ACT 7 Reason Comments Follow-up Migraine Specialty Diagnoses / Procedures [facility] Contact Diagnoses Chronic migraine without aura without status migrainosus, not intractable Jessica Moore, DELIVERY PROFESSIONAL-METALLOGRAPHIC TECHNICIAN [address] [place] [address] Phone: tel: fax: Referral ID Status Reason Start Date Expiration Date V isits Requested Visits Authorized [id number] Pending Review 04/07/2024 04/07/2025 1 1 Reason Comments Follow-up Reason Comments Migraine Botulinum Toxin Injection Every 90 day B otox injectionsonobotulinumtoxinA toxin A ([facility]- [id number] 01) Referral ID Status Reason Start Date Expiration Date V isits Requested Visits Authorized [id number] Pending Review 01/11/2024 01/10/2025 1 1 Specialty Diagnoses / Procedures Referred By Contac t Referred To Contact Diagnoses Intractable chronic migraine without aura and with status migrainosus Jodie Matthews MD [address] [place] [address] Phone: tel: fax: Referral ID Status Reason Start Date Expiration Date V isits Requested Visits Authorized [id number] Pending Review 05/11/2024 05/11/2025 1 1 Reason Comments Follow-up Migraine Headache started 05/05 07/26. And has yet to get relief. Treated with Sumatriptan Injection& tablet. Would like to try the Toradol protocol today. Dark room, no screens, has been trying to sleep. Specialty Diagnoses / Procedures [facility] To Contact Diagnoses Chronic migraine without aura, intractable, with status migrainosus Jessica Moore, DELIVERY PROFESSIONAL-METALLOGRAPHIC TECHNICIAN [address] [place] [address] Phone: tel: fax: Referral ID Status Reason Start Date Expiration Date V isits Requested Visits Authorized [id number] Pending Review 06/02/2024 06/02/2025 1 1 Reason Comments Asthma COPD with asthma Reason Comments Migraine Toradol Protocol Specialty Diagnoses / Procedures [facility] To Contact Diagnoses Chronic migraine without aura without status migrainosus, not intractable Jessica Moore, DELIVERY PROFESSIONAL-METALLOGRAPHIC TECHNICIAN [address] [place] [address] Phone: tel: fax: Referral ID Status Reason Start Date Expiration Date V isits Requested Visits Authorized [id number] Pending Review 07/06/2024 07/06/2025 1 1 Reason Comments Follow-up Reason Comments Botulinum Toxin Injection Specialty Diagnoses / Procedures [facility] To Contact Diagnoses Intractable chronic migraine without aura and with status migrainosus Jodie Matthews MD [address] [place] [address] Phone: tel: fax: Referral ID Status Reason Start Date Expiration Date V isits Requested Visits Authorized [id number] Pending Review 08/10/2024 08/10/2025 1 1 Reason Comments Migraine Specialty Diagnoses / Procedures Referred By Contac t Referred To Contact Diagnoses Intractable chronic migraine without aura and with status migrainosus Jessica Moore, DELIVERY PROFESSIONAL-METALLOGRAPHIC TECHNICIAN [address] [place] [address] Phone: tel: fax: Referral ID Status Reason Start Date Expiration Date V isits Requested Visits Authorized [id number] Pending Review 09/12/2024 09/12/2025 1 1 Reason Comments Immunodeficiency Allergic Rhinitis Asthma Follow up Ordered Prescriptions (unrec ognized section and content) Prescription Sig Dispensed Refills Start Date End Da te doxycycline hyclate (VIBRA-TABS) 100 MG tablet Take 1 tablet by mouth 2 times daily for 7 days 14 tablet 0 08/25/2020 09/01/2020 Prescription Sig Dispensed Refills Start Date End Da te fluticasone-vilanterol (BREO ELLIPTA) 100-25 MCG/INH AEPB inhaler Inhale 1 puff into the lungs daily for 7 days 7 each 0 09/08/2020 09/15/2020 Care Teams (unrecognized sec tion and content) Team Status: Active Member Role Status Dates Rachel Rayo MD Primary Care Provider Active Team Status: Inactive Member Role Status Dates Rachel Rayo MD Primary Care Provide r, Attending Provider Active Start: May 03, 2024 End: May 03, 2024 Team Status: Active Member Role Status Dates Rachel Rayo MD Primary Care Provide r, Referring Provider Active Start: May 27, 2024 Melissa Wilson APRN Attending Provider Active Start: May 27, 2024 Team Status: Inactive Member Role Status Dates Rachel Rayo MD Primary Care Provider Active Start: May 31, 2024 End: May 31, 2024 Sally Tiwari II, MD Attending Provider Active Start: May 31, 2024 End: May 31, 2024 Team Status: Active Member Role Status Dates Rachel Rayo MD Primary Care Provide r, Attending Provider Active Start: November 12, 2023 Team Status: Inactive Member Role Status Raul Rayo MD Primary Care Provider Active Start: November 24, 2023 End: November 24, 2023 DYLAN RomeroC Attending Provider Active Start: November 24, 2023 End: November 24, 2023 Team Status: Active Member Role Status Dates Rachel Rayo MD Primary Care Provide r, Referring Provider Active Start: December 02, 2023 Melissa Wilson APRN Attending Provider Active Start: December 01 Team Status: Inactive Member Role Status Raul Rayo MD Primary Care Provider Active Start: December 02, 2023 End: December 02, 2023 Melissa Wilson APRN Attending Provider Acti ve Start: December 02, 2023 End: December 02, 2023 Team Status: Active Member Role Status Dates Rachel Rayo MD Primary Care Provide r, Attending Provider Active Start: December 10, 2023 Team Status: Inactive Member Role Status Raul Rayo MD Primary Care Provider Active Start: February 03, 2024 End: February 03, 2024 Jessica Rodriguez NP-C Attending Provider Active Start: February 03, 2024 End: February 03, 2024 Team Status: Inactive Member Role Status Raul Rayo MD Primary Care Provide r, Attending Provider Active Start: February 04, 2024 End: February 04, 2024 Team Status: Active Member Role Status Raul Rayo MD Primary Care Provide r, Attending Provider Active Start: February 04, 2024 Team Status: Inactive Member Role Status Raul Rayo MD Primary Care Provide r, Attending Provider Active Start: February 10, 2024 End: February 10, 2024 Team Status: Inactive Member Role Status Raul Rayo MD Primary Care Provide r, Attending Provider Active Start: July 02, 2023 End: July 02, 2023 Team Status: Inactive Member Role Status Raul Rayo MD Primary Care Provider Active Start: July 22, 2023 End: July 22, 2023 Sally Tiwari II, MD Attending Provider Active Start: July 22, 2023 End: July 22, 2023 Team Status: Inactive Member Role Status Raul Rayo MD Primary Care Provider Active Start: July 22, 2023 End: July 22, 2023 Sally Tiwari II, MD Active Sta rt: July 22, 2023 End: July 22, 2023 DYLAN RomeroC Attending Provider Active Start: July 22, 2023 End: July 22, 2023 Team Status: Inactive Member Role Status Dates Rachel Rayo MD Primary Care Provide r, Attending Provider Active Start: July 28, 2023 End: July 28, 2023 Team Status: Inactive Member Role Status Dates Rachel Rayo MD Primary Care Provider Active Start: August 18, 2023 End: August 18, 2023 Sally Tiwari II, MD Active Sta rt: August 18, 2023 End: August 18, 2023 DYLAN RomeroC Attending Provider Active Start: August 18, 2023 End: August 18, 2023 Team Status: Active Member Role Status Dates Rachel Rayo MD Primary Care Provider Active Start: August 20, 2023 Melissa Wilson APRN Attending Provider Acti ve Start: August 20, 2023 Team Status: Inactive Member Role Status Dates Rachel Rayo MD Primary Care Provide r, Attending Provider Active Start: August 28, 2023 End: August 28, 2023 Team Status: Active Member Role Status Dates Rachel Rayo MD Primary Care Provide r, Referring Provider Active Start: September 04, 2023 Melissa Wilson APRN Attending Provider Active Start: September 04, 2023 Team Status: Inactive Member Role Status Dates Rachel Rayo MD Primary Care Provider Active Start: September 04, 2023 End: September 04, 2023 Melissa Wilson APRN Attending Provider Acti ve Start: September 04, 2023 End: September 04, 2023 Team Status: Active Member Role Status Dates Rachel Rayo MD Primary Care Provide r, Referring Provider Active Start: June 02, 2023 Melissa Wilson APRN Attending Provider Active Start: June 02, 2023 Team Status: Inactive Member Role Status Dates Rachel Rayo MD Primary Care Provider Active Start: June 02, 2023 End: June 02, 2023 Melissa Wilson APRN Attending Provider Acti ve Start: June 02, 2023 End: June 02, 2023 Team Status: Active Member Role Status Dates Rachel Rayo MD Primary Care Provider Active Start: July 22, 2023 Sally Tiwari II, MD Attending Provider Active Start: July 22, 2023 Team Status: Inactive Member Role Status Dates Sally Tiwari II, MD Attending Provider Active Start: April 03, 2023 End: April 03, 2023 Team Status: Active Member Role Status Dates Rachel Rayo MD Primary Care Provider, Referring P rovider Active Alina Moran MD Attending Provider Active Team Status: Inactive Member Role Status Dates Rachel Rayo MD Primary Care Provider Active Sally Tiwari II, MD Attending Provider Active Team Status: Inactive Member Role Status Dates Rachel Rayo MD Primary Care Provider Active Melissa Wilson APRN Attending Provider Acti ve Team Status: Inactive Member Role Status Dates Rachel Rayo MD Primary Care Provider Active Luis Connelly APRN Emergency Provider Active Team Status: Inactive Member Role Status Dates Rachel Rayo MD Primary Care Provider Active Ketan Heard MD Admit Provider, Attending Provider Active Angelita Jensen RN Other Provider Active Luz Park DO Other Provider Active Juan F Pettit MD Other Provider Active Krewin Rajput MD Other Provider Active Aureliano Black MD Other Provider Active Lynette Monzon MD Other Provider Active Macey Murphy APRN Other Provider Active Cora Walker MD Other Provider Active Fredy Avalos MD Other Provider Active Kiara Diehl MD Other Provider Active Team Status: Inactive Member Role Status Dates Rachel Rayo MD Primary Care Provider Active Shari Haddad DO RES Active Elizabeth Loyd DO Emergency Provider Active Team Status: Active Member Role Status Dates Rachel Rayo MD Primary Care Provider, Referring P rovider Active Melissa Wilson APRN Attending Provider Acti ve Traffic Police Officer Relationship Specialty Start Date End Date Rachel Rayo MD PCP - General 09/19/10 Traffic Police Officer Relationship Specialty Start Date End Date Rachel Rayo MD PCP - General 09/19/10 Traffic Police Officer Relationship Specialty Start Date End Date Rachel Raoy MD PCP - General 09/19/10 Traffic Police Officer Relationship Specialty Start Date End Date Rachel Rayo MD PCP - General 09/19/10 Traffic Police Officer Relationship Specialty Start Date End Date Rachel Rayo MD PCP - General 09/19/10 Traffic Police Officer Relationship Specialty Start Date End Date Rachel Rayo MD PCP - General 09/19/10 Traffic Police Officer Relationship Specialty Start Date End Date Rachel Rayo MD PCP - General 09/19/10 Traffic Police Officer Relationship Specialty Start Date End Date Rachel Rayo MD [address] [place] [phone] PCP - General 09/19/10 Traffic Police Officer Relationship Specialty Start Date End Date Rachel Rayo MD [address] [place] [id number] PCP - General 09/19/10 Team Status: Active Member Role Status Dates Rachel Rayo MD Primary Care Provider Active Start: September 14, 2023 Rafy Meng MD Attending Provider Active St art: September 14, 2023 Team Status: Inactive Member Role Status Dates Rachel Rayo MD Primary Care Provide r, Attending Provider Active Start: September 15, 2023 End: September 15, 2023 Team Status: Inactive Member Role Status Dates Rachel Rayo MD Primary Care Provider Active Start: October 16, 2023 End: October 17, 2023 Karthik Mcknight DO Emergency Provider Active S tart: October 16, 2023 End: October 17, 2023 Team Status: Inactive Member Role Status Dates Rachel Rayo MD Primary Care Provide r, Attending Provider Active Start: October 26, 2023 End: October 26, 2023 Team Status: Active Member Role Status Dates Rachel Rayo MD Primary Care Provider Active Start: October 30, 2023 Jayant Arambula DO Attending Provider Active Start : October 30, 2023 Team Status: Active Member Role Status Dates Rachel Rayo MD Primary Care Provider Active Start: October 31, 2023 Roni Deshpande MD Attending Provider Active Sta rt: October 31, 2023 Team Status: Inactive Member Role Status Dates Rachel Rayo MD Primary Care Provide r, Attending Provider Active Start: November 10, 2023 End: November 10, 2023 Team Status: Active Member Role Status Dates Rachel Rayo MD Primary Care Provider Active Start: November 24, 2023 Jessica Rodriguez , BRIAN-C Attending Provider Active Start: November 24, 2023 Team Status: Active Member Role Status Dates Rachel Rayo MD Primary Care Provide r, Referring Provider Active Start: November 24, 2023 Melissa Wilson APRN Attending Provider Active Start: November 23 Traffic Police Officer Relationship Specialty Start Date End Date Rachel Rayo MD [address] [place] [id number] PCP - General 09/19/10 Courtney Brown MD [address] [place] [address], [facility] [address] [place] [address] Referring Physician Allergy and Immunology 02/12/24 Traffic Police Officer Relationship Specialty Start Date End Date Rachel Rayo MD [address] [place] [id number] PCP - General 09/19/10 Courtney Brown MD [address] [facility], [address] [address] Referring Physician Allergy and Immunology 02/12/24 Traffic Police Officer Relationship Specialty Start Date End Date Rachel Rayo MD [address] [place] [id number] PCP - General 09/19/10 Courtney Brown MD [address] [facility], [address] [address] Referring Physician Allergy and Immunology 02/12/24 Traffic Police Officer Relationship Specialty Start Date End Date Rachel Rayo MD [address] [place], [place] [phone] PCP - General 09/19/10 Courtney Brown MD [address] [address] Referring Physician Allergy and Immunology 02/12/24 Traffic Police Officer Relationship Specialty Start Date End Date Rachel Rayo MD [address] [place] [address] PCP - General 09/19/10 Courtney Brown MD [address] [address] Referring Physician Allergy and Immunology 02/12/24 Traffic Police Officer Relationship Specialty Start Date End Date Rachel Rayo MD [address] [place] [id number] PCP - General 09/19/10 Traffic Police Officer Relationship Specialty Start Date End Date Rachel Rayo MD [address] [place] [address] PCP - General 09/19/10 Courtney Brown MD [address] [address] Referring Physician Allergy and Immunology 02/12/24 Team Status: Inactive Member Role Status Dates Rachel Rayo MD Primary Care Provider Active Start: May 31, 2024 End: May 31, 2024 Melissa Wilson APRN Attending Provider Acti ve Start: May 31, 2024 End: May 31, 2024 Team Status: Active Member Role Status Dates Rachel Rayo MD Primary Care Provide r, Referring Provider Active Start: May 31, 2024 Melissa Wilson APRN Attending Provider Active Start: May 31, 2024 Traffic Police Officer Relationship Specialty Start Date End Date Rachel Rayo MD [address] [place], [place] [phone] PCP - General 09/19/10 Courtney Brown MD [address] [place] [phone] Referring Physician Allergy and Immunology 02/12/24 Traffic Police Officer Relationship Specialty Start Date End Date Rachel Rayo MD [address] [place] [address] PCP - General 09/19/10 Courtney Brown MD [address] [address] Referring Physician Allergy and Immunology 02/12/24 Team Status: Active Member Role Status Dates Rachel Rayo MD Primary Care Provider Active Start: July 01, 2024 Courtney Brown MD Attending Provider Active Start: July 01, 2024 Team Status: Inactive Member Role Status Dates Rachel Rayo MD Primary Care Provide r, Attending Provider Active Start: July 07, 2024 End: July 07, 2024 Team Status: Inactive Member Role Status Dates Rachel Rayo MD Primary Care Provider Active Start: July 07, 2024 End: July 07, 2024 Sally Tiwari II, MD Attending Provider Active Start: July 07, 2024 End: July 07, 2024 Traffic Police Officer Relationship Specialty Start Date End Date Rachel Rayo MD [address] [place] [address] PCP - General 09/19/10 Courtney Brown MD [address] [place] [address], [address] [address] Referring Physician Allergy and Immunology 02/12/24 Traffic Police Officer Relationship Specialty Start Date End Date Rachel Rayo MD [address] [place] [phone] PCP - General 09/19/10 Courtney Brown MD [facility], [facility] [address] [place], [place] [phone] Referring Physician Allergy and Immunology 02/12/24 Traffic Police Officer Relationship Specialty Start Date End Date Rachel Rayo MD [address] [place] [address] PCP - General 09/19/10 Courtney Brown MD [address] [facility], [facility] [address] [place], [place] [phone] Referring Physician Allergy and Immunology 02/12/24 Team Status: Inactive Member Role Status Dates Rachel Rayo MD Primary Care Provide r, Attending Provider Active Start: August 24, 2024 End: August 24, 2024 Traffic Police Officer Relationship Specialty Start Date End Date Rachel Rayo MD [address] [place] [address] [place] [address] PCP - General 09/19/10 Courtney Brown MD [address] [facility], [facility] [address] [place] [phone] Referring Physician Allergy and Immunology 02/12/24 Goals (unrecognized section and content) Goals may be documented in a n alternate sectionNo InformationGoals may be documented in an alternate sectionGoals may be documented in an alternate sectionNo InformationGoals may be documented in an alternate sectionGoals may be documented in an alternate section No data available for this sectionGoals may be documented in an alternate sectionNo InformationNo InformationNo InformationGoals may be documented in an alternate sectionNo InformationNo InformationNo InformationNo InformationNo InformationNo InformationNo InformationNo Information No data available for this section No data available for this sectionGoals may be documented in an alternate sectionNo Information No data available for this section No data available for this section No data available for this sectionNo InformationNo Information No data available for this section No data available for this sectionNo Information No data available for this section No data available for this sectionNo InformationNo InformationGoals may be documented in an alternate sectionNo InformationNo InformationNo InformationNo Information No data available for this sectionGoals may be documented in an alternate section No data available for this section No data available for this sectionGoals may be documented in an alternate sectionGoals may be documented in an alternate sectionGoals may be documented in an alternate section No data available for this sectionGoals may be documented in an alternate sectionGoals may be documented in an alternate section No data available for this sectionGoals may be documented in an alternate sectionGoals may be documented in an alternate sectionGoals may be documented in an alternate sectionGoals may be documented in an alternate sectionGoals may be documented in an alternate sectionGoals may be documented in an alternate sectionGoals may be documented in an alternate sectionGoals may be documented in an alternate section No data available for this section No data available for this section No data available for this sectionGoals may be documented in an alternate sectionGoals may be documented in an alternate sectionGoals may be documented in an alternate section No data available for this section No data available for this sectionGoals may be documented in an alternate sectionGoals may be documented in an alternate section No data available for this section No data available for this sectionGoals may be documented in an alternate sectionGoals may be documented in an alternate sectionGoals may be documented in an alternate section No data available for this section No data available for this section No data available for this section FOR RECORDS PERTAINING TO PATIENTS WHO ARE OR HAVE BEEN ENROLLED IN A CHEMICAL DEPENDENCY/SUBSTANCEABUSE PROGRAM, SOME INFORMATION MAY BE OMITTED. This clinical summary was aggregated from multiple sources. Caution should be exercised in using it in the provision of clinical care. This summary normalizes information from multiple sources, and as a consequence, information in this document may materially change the coding, format and clinical context of patient data. In addition, data may be omitted in some cases. CLINICAL DECISIONS SHOULD BE BASED ON THE PRIMARY CLINICAL RECORDS. [facility] [employer] [facility]. provides no warranty or guarantee of the accuracy or completeness of information in this document.
[2024-10-02] MEDS: 0.9 % SODIUM CHLORIDE 1,000 ML 1000 ML IV (01:10)
[2024-10-02 01:20] LABS: Basophils Absolute Auto 0.1 10^3/uL (0.0-0.1); Basophils Percent Auto 0.6 % (0.2-2.0); Eosinophils Absolute Auto 0.1 10^3/uL (0.0-0.7); Eosinophils Percent Auto 0.4 % (0.9-7.0); Hematocrit 57.6 % (42.0-54.0); Hemoglobin 19.6 g/dL (14.0-18.0); Immature Granulocytes Abs Auto 0.05 10^3/uL (0.00-0.03); Immature Granulocytes Pct Auto 0.3 % (0.0-0.5); Lymphocytes Absolute Auto 2.3 10^3/uL (1.2-3.8); Lymphocytes Percent Auto 14.9 % (20.5-60.0); Mean Corpuscular Hemoglobin 28.9 pg (25.9-34.0); Mean Corpuscular Volume 84.8 fL (80.0-94.0); Mean Platelet Volume 9.4 fL (9.5-13.5); Monocytes Absolute Auto 0.9 10^3/uL (0.3-0.8); Monocytes Percent Auto 5.8 % (1.7-12.0); Neutrophils Absolute Auto 12.2 10^3/uL (1.4-6.5); Platelet Count 418 10^3/uL (150-450); Red Blood Count 6.79 10^6/uL (4.70-6.10); White Blood Count 15.6 10^3/uL (4.0-11.0)
[2024-10-02 01:21] LABS: Anion Gap 17.1; BUN Creatinine Ratio 11.2; Calcium 9.5 mg/dL (8.5-10.1); Carbon Dioxide 23.5 mmol/L (21.0-32.0); Chloride 99 mmol/L (98-107); Estimated GFR (African America 40 (>=60 mL/min/1.73m^2); Estimated GFR (Non-African Ame 33 (>=60 mL/min/1.73m^2); Glucose 113 mg/dL (74-106); Sodium 137 mmol/L (136-145); Troponin I High Sensitivity 24.2 pg/mL (4.0-76.1)
[2024-10-02 01:22] LABS: Potassium 2.6 mmol/L (3.5-5.1)
[2024-10-02 01:23] LABS: Lactate/Lactic Acid 3.6 mmol/L (0.4-2.0)
[2024-10-02] MEDS: 0.9 % SODIUM CHLORIDE 1,000 ML 2000 ML IV (01:37)
--- NOTE | 2024-10-02 01:37 | ED.GENADUL1 ---
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 He is unable to give very much history. His son is able to give additional history and also talk to EMS, which give us report. Apparently the patient seemed fine around 9 PM but then about an hour prior to arrival, he started to complain that he was not feeling well. The son told me that the patient been having diarrhea for the last 5 or 6 days. He did not admit to any abdominal pain during that time, no fever or chills, no cough or cold symptoms. No recent travel and no known ill exposures. The son told me that they ate pizza around 9 PM and then the son reported that the patient complained that he was not feeling well, telling the son, I think I am going to pass out . Son said he helped him to sit down and the patient seemed to go limp as the patient's son was helping him sit. EMS reported that the patient was hypotensive and brought him to the ED for evaluation. They noted that he was hypoxic and had him on a nonrebreather on arrival to our emergency department. Patient admitted to some diffuse abdominal pain. He was a poor historian on arrival. Meds were able to be confirmed by accessing the computer program to look at his medications according to the [employer] website interface. Related Data Home Medications ?Medication ?Instructions ?Recorded ?Confirmed acetazolamide 500 mg 500 mg PO DAILY 10/15/23 09/05/24 capsule,extended release amitriptyline 100 mg tablet 100 mg PO DAILY 10/15/23 09/05/24 atorvastatin 40 mg tablet 40 mg PO DAILY 10/15/23 09/05/24 budesonide 160 mcg-glycopyr 9 2 inh inhalation DAILY 10/15/23 09/05/24 mcg-formot 4.8 mcg/actuation HFA inhaler (Breztri Aerosphere) celecoxib 200 mg capsule 400 mg PO Q12H 10/15/23 09/05/24 folic acid 1 mg tablet 1 mg PO DAILY 10/15/23 09/05/24 losartan 25 mg tablet 25 mg PO DAILY 10/15/23 09/05/24 methenamine hippurate 1 gram tablet 1 g PO BID 10/15/23 09/05/24 omeprazole 40 mg capsule,delayed 40 mg PO BID 10/15/23 09/05/24 release spironolactone 50 mg tablet 50 mg PO DAILY 10/15/23 09/05/24 topiramate 100 mg tablet 100 mg PO DAILY 10/15/23 09/05/24 venlafaxine 150 mg 300 mg PO DAILY 10/15/23 09/05/24 capsule,extended release 24 hr verapamil 120 mg tablet 120 mg PO DAILY 10/15/23 09/05/24 amlodipine 5 mg tablet 5 mg PO DAILY 10/30/23 09/05/24 biotin 1 mg tablet 1 mg PO DAILY 10/30/23 09/05/24 clonidine HCl 0.1 mg tablet 0.1 mg PO BID 10/30/23 09/05/24 cyanocobalamin (vitamin B-12) 1,000 mcg PO DAILY 10/30/23 09/05/24 1,000 mcg capsule fluticasone propionate 50 2 spray intranasal DAILY PRN nasal 10/30/23 09/05/24 mcg/actuation nasal congestion spray,suspension potassium chloride 20 mEq 20 meq PO BID 10/30/23 09/05/24 tablet,extended release(part/cryst) (Klor-Con M) topiramate 50 mg tablet 50 mg PO TID 10/30/23 09/05/24 galcanezumab-gnlm 120 mg/mL 120 mg subcut DAILY 09/05/24 09/05/24 subcutaneous pen injector (Emgality Pen) losartan 100 mg tablet 100 mg PO DAILY 09/05/24 09/05/24 oxycodone-acetaminophen 5 mg-325 1 tab PO Q12H 09/05/24 09/05/24 mg tablet pregabalin 100 mg capsule 100 mg PO Q12H 09/05/24 09/05/24 topiramate 200 mg tablet 200 mg PO Q12H 09/05/24 09/05/24 Allergies Allergy/AdvReac Type Severity Reaction Status Date / Time baclofen Allergy Severe Unknown Verified 10/02/24 00:37 ciprofloxacin (From Cipro) Allergy Severe Unknown Verified 10/02/24 00:37 indomethacin (From Indocin) Allergy Severe Unknown Verified 10/02/24 00:37 Penicillins Allergy Severe Unknown Verified 10/02/24 00:37 Sulfa (Sulfonamide Allergy Severe Unknown Verified 10/02/24 00:37 Antibiotics) propranolol Allergy Unknown Verified 10/02/24 00:37 Opioid HPI Opioid Management Most Recent Opioid Data: Last Pain Scale 6 10/31/23, 02:00 Last ORT Total Score 1 10/30/23, 17:52 Last ORT Risk Category Low Risk 10/30/23, 17:52 PFSH PFSH Medical History (Updated 10/02/24 @ 06:34 by Brandon Zarate) HLD (hyperlipidemia) ?E78.5 - Hyperlipidemia, unspecified (ICD-10) HTN (hypertension) ?I10 - Essential (primary) hypertension (ICD-10) Chronic respiratory failure with hypoxia ?J96.11 - Chronic respiratory failure with hypoxia (ICD-10) Vertigo ?R42 - Dizziness and giddiness (ICD-10) Concussion with loss of consciousness ?S06.0X9A - Concussion with loss of consciousness of unspecified duration, initial encounter (ICD-10) Stroke ?I63.9 - Cerebral infarction, unspecified (ICD-10) Depression ?F32.A - Depression, unspecified (ICD-10) Chronic migraine 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 (ICD-10) Asthma ?J45.909 - Unspecified asthma, uncomplicated (ICD-10) ILD (interstitial lung disease) ?J84.9 - Interstitial pulmonary disease, unspecified (ICD-10) Surgical History (Updated 10/30/23 @ 18:04 by Alina Rose) H/O laminectomy ?Z98.890 - Other specified postprocedural states (ICD-10) History of hip replacement, total ?Z96.649 - Presence of unspecified artificial hip joint (ICD-10) H/O: knee surgery ?Z98.890 - Other specified postprocedural states (ICD-10) Family History (Updated 10/30/23 @ 18:06 by Alina Rose) Father Family history of CHF (congestive heart failure) Family history of cancer Family history of myocardial infarction Mother Family history of COPD (chronic obstructive pulmonary disease) Family history of cancer Family history of hypertension Family history of myocardial infarction Family history of stroke Brother Family history of cancer Uncle Family history of cancer Aunt Family history of diabetes mellitus Social History (Updated 10/30/23 @ 18:13 by Alina Rose) Within the past year, how often did you have a drink containing alcohol: never Score interpretation: A score less than 4 is consistent with normal alcohol consumption. Smoking status: Never smoker Non-prescribed substance use: denies use Previous occupational history: retired Highest level of school completed/degree received: Master's degree Are you now , , , , never or living with a partner: In a typical week, how many times do you talk on the telephone with family, friends, or neighbors: twice per week How often do you get together with friends or relatives: twice per week How often do you attend latter day or yazidi services: 4 or more times per year Do you belong to any clubs or organizations such as latter day groups unions, fraternal or athletic groups, or school groups: yes Total score: 3 Score interpretation: A score of greater than or equal to 2 indicates the lowest level of social isolation. Little interest or pleasure in doing things: not at all Feeling down, depressed, or hopeless: not at all Feel stressed/tense/nervous/anxious/difficulty sleeping: to some extent Exam Narrative Exam Narrative: Nurses notes and vital signs reviewed and patient IS not hypoxic. He has hypotension with initial blood pressure reading of 88/50. afebrile General: Ill-appearing and weak. Skin: Hands are cool to the touch, skin is dry, generalized pallor noted. No rash. Head: Normocephalic, atraumatic. Neck: Supple, non-tender. No cervical lymphadenopathy. No meningismus. Eye: Pupils are equal, round and EOMI. No scleral icterus. Ears, Nose, Mouth, and Throat: TM are clear, no posterior oropharynx erythema or nasal mucosal hypertrophy, uvula is mid-line. Oral mucosa is very dry. Cardiovascular: Tachycardic. Respiratory: No accessory muscle use or respiratory distress. Lungs are clear to auscultation, no wheezing, rales or rhonchi Musculoskeletal: normal ROM, no calf or popliteal tenderness, no lower extremity edema/swelling GI: Abdomen is soft, non-distended. Normal bowel sounds. No solid or pulsatile masses appreciated. Mild diffuse tenderness to palpation. No rebound, guarding, or rigidity noted. Neurological: A&O x2 -name and place. Too weak to assess cranial nerve dysfunction. Too weak to assess truncal ataxia. Moves all extremities but does still very weakly. Sensation intact. Psychiatric: Cooperative and interactive. Quiet. Constitutional Vital Signs, click to edit/add: Last Vital Signs Temp 97.9 F 10/02/24 00:24 Pulse 106 H 10/02/24 05:50 Resp 21 H 10/02/24 05:50 BP 106/78 10/02/24 03:30 Pulse Ox 96 10/02/24 05:50 O2 Del Method Nasal Cannula 10/02/24 02:10 O2 Flow Rate 5 10/02/24 02:10 Course Vital Signs Vital signs: Vital Signs Temperature 97.9 F 10/02/24 00:24 Pulse Rate 118 H 10/02/24 00:24 Respiratory Rate 22 H 10/02/24 00:24 Blood Pressure 88/50 L 10/02/24 00:24 Pulse Oximetry 90 L 10/02/24 00:24 Oxygen Delivery Method Nasal Cannula 10/02/24 00:24 Oxygen Delivery Flow Rate 5 10/02/24 00:24 Temperature 97.9 F 10/02/24 00:24 Pulse Rate 106 H 10/02/24 05:50 Respiratory Rate 21 H 10/02/24 05:50 Blood Pressure 106/78 10/02/24 03:30 Pulse Oximetry 96 10/02/24 05:50 Oxygen Delivery Method Nasal Cannula 10/02/24 02:10 Oxygen Delivery Flow Rate 5 10/02/24 02:10 Medical Decision Making [facility] Narrative Medical decision making narrative: Patient presents after syncopal event with hypotension, tachypnea, tachycardia, hypoxemia. Patient was placed on potline monitor and EKG obtained. Blood drawn and sent for evaluation, including blood cultures and lactate per sepsis protocol. Portable chest x-ray obtained. ABG also obtained due to the patient's hypoxia. He was ordered to receive 3 L of normal saline IV fluid with 2 of those liters being warmed as his hands and feet were very cold. Multiple peripheral IVs were started. Once we learned that his potassium was only 2.6 he was ordered to receive both oral and IV potassium. Troponin negative. Elevated BUN and Cr = acute kidney injury. Lactate elevated at 3.6. He was ordered to receive imipenem Cilastin 500 mg due to acute kidney injury as well as allergies to penicillin, ciprofloxacin and sulfa drug. Despite being listed in the formulary, apparently we did not have it in the Pyxis. Ertapenem 1 g was ordered and given instead. ABG = pH 7.39, PaCO2 27.4, PaO2 53, O2 sat 89% on 5 L/min nasal cannula O2 Urine was ordered to be obtained was not able to be initially collected. After he received 1.5 L of saline, his blood pressure improved to 110/75 and his heart rate decreased to 110 bpm with O2 sat improving to 97% on 5 L/min nasal cannula. He received neublized albuterol x2 and atrovent x1. With stable blood pressure, we were able to send him to CT suite for scanning of the abdomen pelvis. No IV contrast due to the patient's renal injury. Prior to going to CT suite, he complained of right sided weakness - difficulty moving right UE and right LE. He already has left sided deficit due to prior CVA with left sided weakness. On exam, he is now having difficulty moving the right UE and right LE - therefore, CT scans of brain and cervical spine were also obtained. Repeat lactate is 2.6. A 3rd lactate was ordered. Chest x-ray, according to the radiologist, reveals some changes at the right lung apex. CT scan of the abdomen pelvis includes a portion of the lungs and reveals faint nonspecific groundglass opacities at the left lung base. Abdomen pelvis are unremarkable. CT scan of the head and neck are unremarkable and negative for any worrisome pathology, per radiologist report. Patient presented with hypotension, tachycardia, tachypnea and hypoxia there was found to be secondary to sepsis with septic shock as a result of pneumonia, likely at the right lung apex and left lung base. White blood cell count elevated, lactate elevated. He responded to infusion of 2 L of warm normal saline solution as well as another liter of normal saline +1/4 L that contained 40 mill equivalents of potassium chloride, to supplement the 80 mg of oral potassium that was ordered to be given. Additionally he received Invanz antibiotic for coverage of the pneumonia and sepsis. His lactate improved with ED treatment. His blood pressure normalized and his heart rate decreased, with improvement of his respiratory rate and oxygenation. Plan is for the patient to be admitted for pneumonia, sepsis, septic shock now resolved, renal injury secondary to fluid depletion, along with hypokalemia, all of which are being corrected. Call placed to Dr. Deshpande, the hospitalist on-call, to discuss admission. After I discussed this patient's case with Dr. Deshapnde, he was willing to admit the patient to stepdown unit on an inpatient basis but wanted me to call the stroke team at [facility] to discuss in case they want to do something with regards to the patient's diffuse weakness and inability to sit up or lift his extremities. I spoke with Dr. Abbasi at [facility], covering for the neurology/stroke team. After discussing the patient's case he felt that the weakness is likely secondary to the patient's overall ill state, sepsis with septic shock, acute kidney injury, hypokalemia. He recommended that we continue to offer supportive care for this patient continue antibiotic therapy and then reassess over the next 24 hours. He asked me to pass on to Dr. Deshpande that if the patient continues to have concerning symptoms that the stroke team could always be contacted again and transfer to their facility could be made if necessary. Dr. Deshpande was made aware and the patient was requested to have a bed on stepdown unit at the [facility] Medical Records Medical records reviewed: Yes I reviewed the patient's medical records Medical records narrative: No prior history of AAA rupture, abdominal or thoracic aortic aneurysm, CAD or CHF Lab Data Lab results reviewed: Yes I reviewed the patient's lab results Labs: Lab Results 10/02/24 10/02/24 10/02/24 Range/Units 00:54 01:19 01:20 WBC 15.6 H (4.0-11.0) 10^3/uL RBC 6.79 H (4.70-6.10) 10^6/uL Hgb 19.6 H (14.0-18.0) g/dL Hct 57.6 H (42.0-54.0) % MCV 84.8 (80.0-94.0) fL MCH 28.9 (25.9-34.0) pg MCHC 34.0 (29.9-35.2) g/dL RDW 16.0 H (11.0-15.0) % Plt Count 418 (150-450) 10^3/uL MPV 9.4 L (9.5-13.5) fL Neut % (Auto) 78.0 H (43.0-75.0) % Lymph % (Auto) 14.9 L (20.5-60.0) % [place] % (Auto) 5.8 (1.7-12.0) % Eos % (Auto) 0.4 L (0.9-7.0) % Baso % (Auto) 0.6 (0.2-2.0) % Neut # (Auto) 12.2 H (1.4-6.5) 10^3/uL Lymph # (Auto) 2.3 (1.2-3.8) 10^3/uL [place]oshone # (Auto) 0.9 H (0.3-0.8) 10^3/uL Eos # (Auto) 0.1 (0.0-0.7) 10^3/uL Baso # (Auto) 0.1 (0.0-0.1) 10^3/uL Abs Immat Gran (auto) 0.05 H (0.00-0.03) 10^3/uL Imm/Tot Granulo (auto) 0.3 (0.0-0.5) % Puncture Site Lt radial ABG pH 7.387 (7.350-7.450) ABG pCO2 27.4 L (35.0-45.0) mmHg ABG pO2 53.3 L* (80.0-100.0) mmHg ABG HCO3 16.5 L (22.0-26.0) mmol/L ABG O2 Saturation 89.3 % ABG Base Excess -8.6 L (-2.0-2.0) mmol/L Balbir Test Positive (POSITIVE) O2 Liters/Min 5 Sodium 137 (136-145) mmol/L Potassium 2.6 L* (3.5-5.1) mmol/L Chloride 99 (98-107) mmol/L Carbon Dioxide 23.5 (21.0-32.0) mmol/L Anion Gap 17.1 BUN 23.0 H (7.0-18.0) mg/dL Creatinine 2.06 H (0.70-1.30) mg/dL Est GFR ( Amer) 40 L (>=60 mL/min/1.73m^2) Est GFR (Non-Af Amer) 33 L (>=60 mL/min/1.73m^2) BUN/Creatinine Ratio 11.2 Glucose 113 H (74-106) mg/dL Lactate 3.6 H* (0.4-2.0) mmol/L Calcium 9.5 (8.5-10.1) mg/dL Troponin I High Sens 24.2 (4.0-76.1) pg/mL Urine Color (YELLOW) Urine Clarity (CLEAR) Urine pH (5.0-9.0) Ur Specific [place] (1.005-1.025) Urine Protein (NEG/TRACE) mg/dL Urine Glucose (UA) (NEGATIVE) mg/dL Urine Ketones (NEGATIVE) mg/dL Urine Occult Blood (NEGATIVE) Urine Nitrite (NEGATIVE) Urine Bilirubin (NEGATIVE) Urine Urobilinogen (0.2-1.0) EU/dL Ur Leukocyte Esterase (NEGATIVE) Urine RBC (0-2) #/HPF Urine WBC (NONE SEEN) #/HPF Ur Squamous Epith Cells (NONE/RARE) #/LPF Urine Crystals (None Seen) #/HPF Urine Bacteria (NONE SEEN) #/HPF Urine Casts (NONE SEEN) #/LPF Fatty Casts Urine Mucus (NONE SEEN) Ur Culture Indicated? SARS-CoV-2 Ag (CV2AG) Negative (NEGATIVE) 10/02/24 10/02/24 Range/Units 03:56 04:04 WBC (4.0-11.0) 10^3/uL RBC (4.70-6.10) 10^6/uL Hgb (14.0-18.0) g/dL Hct (42.0-54.0) % MCV (80.0-94.0) fL MCH (25.9-34.0) pg MCHC (29.9-35.2) g/dL RDW (11.0-15.0) % Plt Count (150-450) 10^3/uL MPV (9.5-13.5) fL Neut % (Auto) (43.0-75.0) % Lymph % (Auto) (20.5-60.0) % [place] % (Auto) (1.7-12.0) % Eos % (Auto) (0.9-7.0) % Baso % (Auto) (0.2-2.0) % Neut # (Auto) (1.4-6.5) 10^3/uL Lymph # (Auto) (1.2-3.8) 10^3/uL [place] # (Auto) (0.3-0.8) 10^3/uL Eos # (Auto) (0.0-0.7) 10^3/uL Baso # (Auto) (0.0-0.1) 10^3/uL Abs Immat Gran (auto) (0.00-0.03) 10^3/uL Imm/Tot Granulo (auto) (0.0-0.5) % Puncture Site ABG pH (7.350-7.450) ABG pCO2 (35.0-45.0) mmHg ABG pO2 (80.0-100.0) mmHg ABG HCO3 (22.0-26.0) mmol/L ABG O2 Saturation % ABG Base Excess (-2.0-2.0) mmol/L Balbir Test (POSITIVE) O2 Liters/Min Sodium (136-145) mmol/L Potassium (3.5-5.1) mmol/L Chloride (98-107) mmol/L Carbon Dioxide (21.0-32.0) mmol/L Anion Gap BUN (7.0-18.0) mg/dL Creatinine (0.70-1.30) mg/dL Est GFR ( Amer) (>=60 mL/min/1.73m^2) Est GFR (Non-Af Amer) (>=60 mL/min/1.73m^2) BUN/Creatinine Ratio Glucose (74-106) mg/dL Lactate 2.6 H* (0.4-2.0) mmol/L Calcium (8.5-10.1) mg/dL Troponin I High Sens (4.0-76.1) pg/mL Urine Color Lt. yellow (YELLOW) Urine Clarity Clear (CLEAR) Urine pH 6.0 (5.0-9.0) Ur Specific [place] 1.015 (1.005-1.025) Urine Protein Trace (NEG/TRACE) mg/dL Urine Glucose (UA) Negative (NEGATIVE) mg/dL Urine Ketones Negative (NEGATIVE) mg/dL Urine Occult Blood Negative (NEGATIVE) Urine Nitrite Negative (NEGATIVE) Urine Bilirubin Negative (NEGATIVE) Urine Urobilinogen 0.2 (0.2-1.0) EU/dL Ur Leukocyte Esterase Small A (NEGATIVE) Urine RBC None seen (0-2) #/HPF Urine WBC 5-10 A (NONE SEEN) #/HPF Ur Squamous Epith Cells None seen (NONE/RARE) #/LPF Urine Crystals None seen (None Seen) #/HPF Urine Bacteria Trace A (NONE SEEN) #/HPF Urine Casts Seen A (NONE SEEN) #/LPF Fatty Casts Moderate Urine Mucus None seen (NONE SEEN) Ur Culture Indicated[place] [place]-2 Ag (CV2AG) (NEGATIVE) Imaging Data ct head, cspine, abd/pelvis; xr chest: Attestation: I have reviewed the pertinent imaging results. Radiologist's impression: See my summarization above ECG Data Attestation: I personally reviewed and interpreted this ECG as follows: Interpretation: EKG interpretation: Emergency Department physician interpretation. Sinus tachycardia at 118 bpm. Left ventricular hypertrophy, repolarization changes, no ST segment elevation was noted but he did have some ischemic changes at 1, aVL, lead II and T wave flattening in leads V3 through V6 Critical Care Time Critical Care Time Critical Care Time: Yes Total Critical Care Time: 110 Attestation: Critical Care Time: 110 minutes, critical care time is separate from any procedures that are performed. The following was considered in the determination of critical care but not limited to the level medical decision-making, intensive cardiac and/or respiratory monitor, frequent vital sign monitoring, evaluation of laboratory studies, evaluation of a radiographic studies, oxygen monitoring and constant monitoring. I spent the daytime caregiver either at the patient's bedside, interpreting his labs, documenting his progress, placing additional orders, monitoring changes. Discharge Plan Discharge Chief Complaint: Fall Clinical Impression: Sepsis, Anti-pneumococcal polysaccharide antibody deficiency, Acute kidney injury, Septic shock, Acute hypokalemia, Enteritis, Left lower lobe pneumonia, Weakness Patient Disposition: Admitted As Inpatient Time of Disposition Decision: 03:40
[2024-10-02] MEDS: POTASSIUM CHLORIDE IN 0.9%NACL 1,000 ML 200 ML IV (01:38)
[2024-10-02 01:44] LABS: Internal Control Within Normal Limits; SARS-CoV-2 Ag NEGATIVE (NEGATIVE)
[2024-10-02 01:45] LABS: pH ABG 7.387 (7.350-7.450)
[2024-10-02 01:46] LABS: ABG PCO2 27.4 mmHg (35.0-45.0); Allen Test POSITIVE (POSITIVE); Base Excess ABG -8.6 mmol/L (-2.0-2.0); HCO3 ABG 16.5 mmol/L (22.0-26.0); Liters per Minute 5; O2 Mode NASAL CANNULA; Oxygen Saturation ABG 89.3 %; Puncture Site LT RADIAL
[2024-10-02 01:48] LABS: PO2 ABG 53.3 mmHg (80.0-100.0)
[2024-10-02] MEDS: POTASSIUM CHLORIDE 10 MEQ ER TABLET 80 MEQ PO (01:52)
[2024-10-02] MEDS: ERTAPENEM SODIUM 1 GM in 0.9 % SODIUM CHLORIDE 50 ML IV (02:04)
[2024-10-02] MEDS: IPRATROPIUM/ALBUTEROL SULFATE 3 ML AMPUL.NEB IH (02:12)
[2024-10-02] MEDS: ALBUTEROL SULFATE 2.5 MG/3 ML VIAL NEB IH (02:13)
--- NOTE | 2024-10-02 02:44 | PC.NURSE ---
Patient is alert on admission, but drowsy. Body temp very cold. Hard to get accurate pulse ox. Several pulses ox's were tried. Placed on 5 L and removed from non-rebeather on admission. Patient has COPD Started at 2 but increased to 5L. Patient does not swear O2 at home. Finger tips blue. Denies pain or SOB, just weakness
[2024-10-02] MEDS: METHYLPREDNISOLONE SOD SUCC PF 125 MG/2 ML VIAL IVP (02:56)
[2024-10-02 04:11] LABS: Bilirubin Urine NEGATIVE (NEGATIVE); Blood Urine NEGATIVE (NEGATIVE); Clarity Urine CLEAR (CLEAR); Color Urine LT. YELLOW (YELLOW); Glucose Urine UA NEGATIVE (NEGATIVE); Ketones Urine NEGATIVE (NEGATIVE); Leukocyte Esterase Urine SMALL (NEGATIVE); Nitrite Urine NEGATIVE (NEGATIVE); Protein Urine TRACE mg/dL (NEG/TRACE); Specific Gravity Urine 1.015 (1.005-1.025); Urobilinogen Urine 0.2 EU/dL (0.2-1.0)
[2024-10-02 04:19] LABS: Bacteria Urine TRACE #/HPF (NONE SEEN); Cast Seen? SEEN #/LPF (NONE SEEN); Crystals Seen? None Seen #/HPF (None Seen); Fatty Casts Urine MODERATE; Mucus Urine NONE SEEN (NONE SEEN); RBC Urine NONE SEEN #/HPF (0-2); Squamous Epithelial Cell Urine NONE SEEN #/LPF (NONE/RARE); Urine Culture Indicated YES-FRMC
[2024-10-02 04:29] LABS: Lactate/Lactic Acid 2.6 mmol/L (0.4-2.0)
--- OUTSIDE RECORDS SUMMARY | 2024-10-02 07:16 | XMS_ITS | CCD ---
Author Organization [facility] CliniSyar Care Team Providers Care Shipping And Receiving Operator Name Role Phone Mathew Miller Unavailable Unavailable Jorge, Austen ASindi Unavailable Unavailable Jorge, Austen ASindi Unavailable Unavailable Kerwin Davis PA-C Unavailable Unavail able Ly Corado Unavailable Ladonna vailable Miscellaneous, SJ Unavailable Unavailable Miscellaneous, SJ Unavailable Unavailable Miscellaneous, SJ Unavailable Unavailable ALIX MURPHY Unavailable Unavailable RACHEL RAYO Unavailable Unavailable ALI, CARDOSO Unavailable Unavailable LEELA, CARDOSO Unavailable Unavailable Oni Gr Primary Care Provider Courtney Brown Unavailable Unavailable Mathew Miller Unavailable Unavailable Betty Sanches Unavailable Unavailable Jodie Matthews Unavailable Unavailable Rachel Rayo Unavailable Unavailable Mathew Miller Unavailable Unavailable Jodie Matthews Unavailable Unavailable Muoh, Henna H Unavailable Unavailable [place] Unavailable Unavailable Courtney Brown Unavailable Unavailable Home Smith Unavailable Unavailable RADIO DIVISION OFFICER, ALLERGY Unavailable Unava ilable Courtney Brown Unavailable [...] Rayo Unavailable Unavailable Unavailable Unavailable Unavailable Deats RN ADMITOni Burnham CNP Primary Care Provider MD Rachel [...] Referring Provider MD Alina Moran Attending Provider Sally Tiwari II Unavailable MD Rachel Rayo Primary Care Provider MD Sally Tiwari II Attending Provider MD Rachel Rayo Referring Provider [phone] MD Alina Moran Attending Provider MD Rachel Rayo Referring Provider MD Alina Moran Attending Provider DO Elizabeth Loyd Harpal Emergency Provider MD Rachel Rayo Referring Provider MD Alina Moran Attending Provider [phone] LUIS Connelly Emergency Provider MD Rachel Rayo Primary Care Provider MD Rachel Rayo Referring Provider MD Alina Moran Attending Provider RACHEL RAYO Primary Care Physician [phone] MD Sally Tiwari II Attending Provider Rachel [...] Dr. Rachel Rayo Primary Care Unav ailable Hecker, Park Referring Unavailable Rochelle, Park Attending Unavailable Rochelle, Park Admitting Unavailable MD Rachel Rayo Primary Care Provider [phone] LUIS Wilson Attending Provider GELA RUFFIN Attending [...] RAYO, DR RACHEL English Primary Care Unavailable CLEVELAND, RICH Consulting Unavailable RAYO, DR RACHEL English [...] RAFY Attending Unavailable TAQUERIA, RAFY Consulting Unavailable RYAO, DR RACHEL English Primary Care Unavailable DEX [...] RAFY Consulting Unavailable TAQUERIA, RAFY Admitting Unavailable TAQUERIA, RAFY Attending Unavailable RAYO, DR RACHEL English [...] RAYO, DR RACHEL English Primary Care Unavailable Jessica Rodriguez Unavailable Dr. Kalpesh Brownn Joe Attending [...] Care Provider MD Rachel Rayo Referring Provider LUSI Wilson Attending Provider MD Sally Tiwari II Attending Provider MD Rachel Rayo Primary Care Provider MD Rachel Rayo Referring Provider LUIS Wilson Attending Provider Rachel Rayo MD Primary Care Provider DO Karthik Mcknight Emergency Provider [phone] MD Rachel Rayo Primary Care Provider GREYSON [...] Referring Provider Melissa Wilson APRN Attending Provider Rachel Rayo MD Primary Care Provider Rachel Rayo MD Referring Provider [phone] Melissa Wilson APRN Attending Provider Courtney Brown MD Unavailable Rachel Rayo MD Primary Care Provider Rachel Rayo MD Referring Provider [phone] Melissa Wilson APRN Attending Provider RICH MAGANA [...] Gonzales Attending Unavailable Issa Gonzales Admitting Unavailable Issa Gonzales Admitting Unavailable [...] sources) candesartan Drug Allergy 09-04-19 24 Other [facility] avocado allergenic extract (1 source) avocado allergenic extract Drug Allergy 02-24-19 80 Respiratory depression, Shortness of breath, Wheezing [facility] avocado oil (1 source) avocado oil Drug Allergy 10-16-19 24 [facility] Baclofen (20 sources) Baclofen; Translations: [baclofen] Drug Allergy 01-18-20 17 Other (See Comments), Unknown, Myalgia [facility] Benzodiazepines (20 sources) diazePAM; Translations: [Valium TABS] Drug Allergy 09-28-19 18 Other (See Comments), Other, Unknown [facility] Calcium Channel Blockers (2 sources) dilTIAZem Drug Allergy 09-04-19 24 Other [facility] Work Phone: Cephalosporins (antibiotic) (2 sources) cefdinir Drug Allergy 09-04-19 24 Other [facility] Work Phone: Chocolate (20 sources) Chocolate Food Allergy 06-02-19 24 Headache QE-Wtbufizwc-N[facility] bo 170 DO Work Phone: chocolate allergenic extract (1 source) chocolate allergenic extract Drug Allergy 01-03-20 23 Headache [facility] Work Phone: Glutamate (1 source) Glutamate Drug Allergy 03-24-20 23 Headache, Hives, Shortness of breath [facility] Work Phone: Iodine (and Iodine containting drugs) (2 sources) Iodine Drug Allergy 06-22-19 24 Hives, Unknown [facility] Work Phone: NSAIDs (20 sources) Indomethacin; Translations: [Indocin CAPS] Drug Allergy 01-18-20 17 Other (See Comments), Rash, Unknown, Hives [facility] Penicillins (antibiotic) (6 sources) Penicillins Drug Allergy 01-18-20 17 Other (See Comments), Rash, Unknown, Hives [facility] Pollen (2 sources) Grass pollen Substance Allergy 03-24-20 23 Cough, Dermatitis, Runny nose, Shortness of breath, Wheezing [facility] Work Phone: Propranolol (9 sources) Propranolol; Translations: [propranolol] Drug Allergy 10-28-19 19 Rash, Syncope [facility] Quinolones (antibiotic) (20 sources) Ciprofloxacin; Translations: [Cipro TABS] Drug Allergy 01-18-20 17 Rash, Swelling [facility] Sulfonamides (antibiotic) (20 sources) Sulfonamides (Antibiotic); Translations: [Sulfa Drugs] Drug Allergy 09-28-19 18 Other (See Comments), Other, Rash [facility] Unclassified (20 sources) Other; Translations: [OTHER] Allergy to substance (finding) 08-19-19 08 Unknown [facility] Repository Unclassified (20 sources) [place] Oil OIL; Translations: [[place] Oil OIL] Allergy to drug (finding) [address] Work Phone: Unclassified (20 sources) Penicillins [employer]; Translations: [Penicillins [employer]] Allergy to drug (finding) [address] Work Phone: (20 sources) baclofen; Translations: [BACLOFEN] Drug Allergy 01-18-20 17 AOF, Dizziness, Weakness, Weakness, anaphylaxis [facility] Repository (20 sources) ciprofloxacin; Translations: [CIPROFLOXACIN] Drug Allergy 01-18-20 17 SWELLING, Rash, Unknown [facility] (20 sources) diazePAM; Translations: [DIAZEPAM] Drug Allergy 05-09-19 18 AOF, Unknown Reaction, Unknown Reaction, depression [facility] (20 sources) indomethacin; Translations: [INDOMETHACIN] Drug Allergy 01-18-20 17 RASH, Hypotension, Hypotension, hives [facility] (20 sources) Penicillins; Translations: [penicillins] Drug allergy (disorder) 07-25-19 07 Weal (disorder), Hives, Rash, Unknown [facility] (20 sources) Sulfonamides (Antibiotic); Translations: [SULFA (SULFONAMIDE ANTIBIOTICS)] Drug allergy (disorder) 05-09-19 18 AOF, Unknown Reaction [facility] (20 sources) avocado oil; Translations: [AVOCADO] Drug Allergy 02-24-19 80 Swelling [facility] Repository (3 sources) Baclofen Drug Allergy 01-17-20 16 [facility] Repository (3 sources) Cat dander extract Drug Allergy 07-21-19 17 [facility] Rep[facility] (3 sources) Ciprofloxacin Drug Allergy 05-15-19 15 [facility] Repository (3 sources) diazePAM Drug Allergy 09-10-19 13 [facility] Repository (20 sources) Grass pollen; Translations: [GRASS POLLEN] Drug allergy (disorder) 07-21-19 17 Cough, Dermatitis, Runny nose, Shortness of breath, Wheezing [facility] Repository (3 sources) Penicillins Drug allergy (disorder) 09-10-19 13 [facility] Repository (6 sources) Procyclidine; Translations: [Indocin] Drug Allergy 09-10-19 13 [facility] Rep[facility] (20 sources) Propranolol; Translations: [PROPRANOLOL] Drug Allergy 04-26-20 18 Hypotension [facility] Repository (3 sources) Sulfonamides (Antibiotic) Drug allergy (disorder) 04-26-20 18 [facility] Rep[facility] (20 sources) pine oil; Translations: [PINE OIL] Drug allergy (disorder) 07-21-19 17 Unknown [facility] Rep[facility] (20 sources) Baclofen; Translations: [baclofen] Drug Allergy 01-18-20 17 Other (See Comments), anaphylaxis, Asthenia (finding), Unknown, Myalgia [place], [place] (20 sources) Ciprofloxacin; Translations: [Cipro TABS] Drug Allergy 01-18-20 17 Rash, Weal (disorder), Swelling [place], [place] (20 sources) diazePAM; Translations: [Valium TABS] Drug Allergy 05-09-19 18 Other (See Comments), Other, Unknown, Shortness of breath [place] (20 sources) Indomethacin; Translations: [indomethacin] Drug Allergy 01-18-20 17 Other (See Comments), hives, Eruption of skin (disorder), Weal (disorder), Unknown, Rash [place] (20 sources) Penicillins Propensity to adverse reactions to drug 01-18-20 17 Other (See Comments) [place] (20 sources) Propranolol; Translations: [propranolol] Drug Allergy 10-28-19 19 Rash, Low blood pressure (disorder), Syncope [place] (20 sources) Sulfonamides (Antibiotic) Propensity to adverse reactions to drug 09-28-19 18 Other (See Comments) [place] (20 sources) Chocolate; Translations: [CHOCOLATE] allergy to substance 05-17-19 19 Headache [facility] Repository (20 sources) Sulfonamides (Antibiotic); Translations: [Sulfa Drugs] drug allergy Eruption of skin (disorder) [facility] (20 sources) Animal dander - Cats allergy to substance JC-Eoivkbohnm-I sanjiv Work Phone: (20 sources) Grass allergy to substance MW-Kqswfavtss-Z sanjiv Work Phone: (20 sources) Indomethacin; Translations: [Indocin CAPS] Drug Allergy RM-Cvyzubxjye-V [place] [address] DO Work Phone: (20 sources) Contrast media Allergy to substance (finding) [facility] [address] [place] Work Phone: (20 sources) candesartan; Translations: [candesartan] Drug Allergy 01-15-20 [facility] (20 sources) cefdinir; Translations: [cefdinir] Drug Allergy 01-11-20 20 [facility] Comment on above: Onset Date: 01/11/20 (20 sources) Chocolate; Translations: [chocolate flavor] Allergy to substance 07-21-19 17 Headache [facility] (20 sources) dilTIAZem; Translations: [diltiazem] Drug Allergy 01-15-20 22 [facility] (20 sources) Penicillin V Drug Allergy 07-22-19 24 rash [facility] (20 sources) Iodine; Translations: [iodine] Drug Allergy 07-25-19 07 Weal (disorder), Hives, Unknown [facility] (16 sources) avocado oil Drug Allergy Unknown neoSaej Other (20 sources) Substance with sulfonamide structure and antibacterial mechanism of action (substance) Drug allergy 09-28-19 18 Other, Rash neoSaej Other (20 sources) Monosodium glutamate; Translations: [MONOSODIUM GLUTAMATE] Drug allergy 03-24-20 23 Unknown, Hives [facility] (16 sources) Chocolate Natural & Artifical Drug allergy Unknown neoSaej Other (16 sources) Grass Pollen Standardized Ext Drug allergy Unknown neoSaej Other (1 source) Ciprofloxacin; Translations: [CIPROFLOXACIN (BULK)] Drug Allergy 06-10-19 [facility] Repository (1 source) Indomethacin; Translations: [INDOMETHACIN SODIUM] Drug Allergy 07-25-19 [facility] Repository (13 sources) Aspartame; Translations: [ASPARTAME] Drug Allergy 01-27-20 Headache (finding) [facility] Repository (1 source) Misc-Food; Translations: [Misc-Food] Food allergy (disorder) [facility] Repository (1 source) Iodine / Sodium Iodide Drug Allergy Unknown neoSaej Other (7 sources) Penicillin G Benzathine & Proc Drug allergy Unknown neoSaej Other (7 sources) Sulf-10 Drug allergy Unknown neoSaej Other (1 source) Allergies Reconciled Propensity to adverse reactions Unknown neoSaej Other (1 source) patient allergy list reviewed by nurse or physicia Propensity to adverse reactions 09-12-19 Comment:Done neoSaej Other (20 sources) chocolate allergenic extract; Translations: [COCOA] Drug Allergy 01-03-20 23 Headache [facility] Work Phone: (17 sources) Penicillins Drug Intolerance 01-18-20 17 Unknown, Rash, Hives [facility] Work Phone: (20 sources) avocado allergenic extract Drug Allergy 02-24-19 80 Respiratory depression, Shortness of breath, Wheezing [facility] Work Phone: (20 sources) Glutamate Drug Allergy 03-24-20 23 Headache, Hives, Shortness of breath [facility] Work Phone: (20 sources) Penicillin G Benzathine; Translations: [penicillin G benzathine] Allergy to substance 07-22-19 24 Hives [facility] (6 sources) Penicillin; Translations: [penicillins] Drug Allergy Weal (disorder) [facility] (6 sources) Sulfonamide; Translations: [sulfa drugs] Drug allergy Eruption of skin (disorder) [facility] (9 sources) MSG (monosodium glutamate); Translations: [MSG (monosodium glutamate)] Drug allergy Paralysis (finding) [facility] (9 sources) Aspartame Drug Allergy 05-11-19 Headache [facility] Work Phone: (5 sources) Penicillins Drug Allergy 01-18-20 17 Hives, Rash, Unknown [facility] Work Phone: (1 source) avocado oil Drug Allergy 07-08-19 25 [facility] Repository (1 source) Grass pollen Drug allergy (disorder) 07-08-19 [facility] Repository (1 source) Iodine Drug Allergy 07-08-19 25 [facility] Repository (1 source) Penicillin Drug Allergy 07-08-19 25 [facility] Repository (1 source) Propranolol Drug Allergy 07-08-19 [facility] Repository (1 source) monosodium glutamate Drug allergy (disorder) 07-08-19 [facility] Repository Medications Current Medications Medication Drug Class(es) [...] Brown MD Start : 06-Dec-2020 Active PA [id number] 03/05/2022-03/04/2023 Start: 11-12-2017 End: 03-24-2023 Fasenra Prefilled [...] Start: 06-30-2023 Biotin 10,000 mcg tablet,disintegrating Active 28089 MCG PO As Directed June 30, 2023 1:00am Start: 12-06-2020 biotin 1,000 m cg tablet,chewable Chew 1 tablet once daily. 12/06/2020 Active Start: 12-06-2020 Biotin 1000 MC G Oral Tablet Chewable Quantity: 0 Refills: 0 Ordered: 06-Dec-2020 DO Start : 06-Dec-2020 Active Biotin 83317 MCG as directed Orally Active onabotulinumtoxina 100 [...] take 1 puff(s) by inhalation twice daily Paicvgwkei-Cpavjuht-Ayankjbkou 160-9-4.8 mcg/actuation HFA aerosol inhaler Active 2 PUFF INHALATION Twice daily June 30, 2023 1:00am Start: 06-25-2023 take 2 puff(s) by inhalation twice daily vicvixciqg-ygpdbwuw-ybdvqleoml (Breztri Aerosphere) 160-9-4.8 mcg/actuation HFA aerosol inhaler Indications: Asthma, severe persistent, poorly-controlled, with acute exacerbation (Multi) Inhale 2 puffs 2 times a day. 10.7 g 11 06/25/2023 Active Start: 06-22-2023 budesonide-gly copyr-formoterol (Breztri Aerosphere) 160-9-4.8 mcg/actuation HFA aerosol inhaler Indications: Asthma, severe persistent, poorly-controlled, with acute exacerbation Refill(s) 0 10.7 g 11 06/22/2023 Active Start: 2023 End: 06-22-2023 zhsgaycdgw-rhlqfacn-dhrtimla ol (Breztri Aerosphere) 160-9-4.8 mcg/actuation HFA aerosol [...] spasm, # 90 tab(s), Refills(s) 0, Pharmacy: [facility]/pharmacy #[id number], 175, cm, 06/05/23 14:54:00 EST, Height/Length Dosing, 76.7, kg, 06/05/23 14:54:00 EST, Weight Dosing Start Date: 06/05/23 Status: Ordered Flexeril Active dextromethorphan hydrobromide 2 mg/ml / guaiFENesin 20 mg/ml oral solution (3 sources) Uncompetitive A-yoauyh-M-aspartate Receptor Antagonist, Sigma-1 Agonist Start: 03-28-2019 dextromethorphan-guaiFENesin [...] Start: 05-19-2022 fluticasone Na dulce 0.05 mg/inh Corazon Refill(s) 0 Start Date: 05/19/22 Status: Ordered [...] mg into the lungs daily 0 Active Tuaycatzoie-Urlqoazem-Hrnlsk er (20 sources) Start: Rrrnzuewfgs-Qrzdxrgzu-Zoqjx ter (Trelegy Ellipta) 200-62.5-25 mcg Blister With Device Active 1 INH INHALATION Daily July 29, 2021 11:31am Start: 07-29-2021 End: 01-02-2022 Kuclehxiuth-Kwjygcfuk-Ndpnkz er (Trelegy Ellipta) 200-62.5-25 mcg Blister With Device Discontinued 1 INH INHALATION Daily July 28, 2021 11:00pm January 02, 2022 1:00pm Start: 07-29-2021 End: 01-02-2022 Wgkovmbyjfx-Utszylefh-Ckvfbq er (Trelegy Ellipta) 200-62.5-25 mcg Blister With [...] BID, # 180 tab(s), Refills(s) 3, Pharmacy: [facility]/pharmacy #[id number], 175, cm, 01/18/24 11:11:00 EDT, [...] day(s), # 180 tab(s), Refills(s) 3, Pharmacy: [facility]/pharmacy #[id number], 175, cm, 11/11/22 13:55:00 EDT, [...] Active Start: 06-30-2023 take 1 capsule by [facility] once daily Omeprazole 20 mg capsule,delayed release(DR/EC) [...] 3:38pm Start: 08-07-2020 take 1 capsule by [facility] every twelve hours Omeprazole 40 MG Oral Capsule Delayed Release TAKE 1 CAPSULE BY MOUTH EVERY 12 HOURS Quantity: 180 Refills: 3 Ordered: 15-Dec-2022 Courtney Brown MD Start : 07-Aug-2020 Active Start: 08-07-2020 take 1 capsule by [facility] every twelve hours Omeprazole 40 MG Oral Capsule Delayed Release TAKE 1 CAPSULE Every twelve hours Quantity: 180 Refills: 3 Ordered: 13-Feb-2022 Courtney Brown MD Start : 07-Aug-2020 Active Start: 10-20-2017 take 1 capsule by [facility] twice daily Omeprazole 20 MG Oral Capsule Delayed Release TAKE 1 CAPSULE BY MOUTH TWICE A DAY Quantity: 180 Refills: 1 Ordered: 07-Aug-2020 Courtney Brown MD Start : 07-Aug-2020 Active take 2 capsules by [facility] twice daily omeprazole (PriLOSEC) [address] capsule Take 2 capsules (80 mg) by mouth twice a day. Active take 1 capsule by [facility] once daily Omeprazole 20 MG 1 capsule [...] Start: 07-23-2018 take 2 tablets by mo [facility] twice daily, then take 1 tablet by [...] 2022 2:00pm take 1 capsule by mo [facility] every eight hours Lyrica 100 mg 1 [...] 30, 2023 3:38pm take 1 capsule by [facility] every twenty-four hours Flomax 0.4 MG 1 [...] 1 puff(s) by inhalation once daily Umeclidinium [place] (INCRUSE ELLIPTA) 62.5 MCG/INH AEPB Inhale 1 [...] every eight hours as needed HYDROcodone-acetami nophen (Mccune) 5-325 mg tablet Take 1 tablet by mouth every 8 hours if needed for pain. 05/02/2024 07/25/2024 Discontinued (Med List Cleanup) Start: 05-02-2024 End: 06-01-2024 Mccune 325 mg-5 mg oral table t 1 tab(s), Oral, TID as needed for pain for 30 day(s), 90 tab(s), Refill(s) 0, [facility]/pharmacy #[id number], 175, cm, 01/18/24 11:11:00 EDT, Height/Length Dosing, 74, kg, 01/18/24 11:11:00 EDT, Weight Dosing Start Date: 05/02/24 Stop Date: 06/01/24 Status: Ordered Start: 01-18-2024 Mccune 325 mg-5 mg oral tablet 0.5 tab(s), Oral, TID as needed for pain, 45 tab(s), Refill(s) 0, [id number], 175, cm, 01/18/24 11:11:00 EDT, Height/Length Dosing, 74, kg, 01/18/24 11:11:00 EDT, Weight Dosing Start Date: 01/18/24 Status: Ordered Start: 12-04-2023 Mccune 325 mg-5 mg oral tablet 1 tab(s), Oral, TID as needed for pain, 90 tab(s), Refill(s) 0, [facility]/pharmacy #[id number], 175, cm, 12/04/23 10:56:00 EDT, Height/Length Dosing, 74, kg, 12/04/23 10:56:00 EDT, Weight Dosing Start Date: 12/04/23 Status: Ordered Start: 06-30-2023 End: 05-31-2024 take 1 tablet by mouth every six hours as needed Hydrocodone-Acetaminophen 5-325 mg tablet Discontinued 1 TAB PO Every 6 hours as needed June 30, 2023 1:00am May 31, 2024 2:17pm Start: 02-02-2024 Mccune 325 mg-5 mg oral tablet 1 tab(s), Oral, TID as needed for pain, 90 tab(s), Refill(s) 0, [id number], 175, cm, 06/05/23 14:54:00 EST, Height/Length Dosing, 76.7, kg, 06/05/23 14:54:00 EST, Weight Dosing Start Date: 06/05/23 Status: Ordered Start: 04-08-2023 Mccune 325 mg-5 mg oral tablet 1 tab(s), Oral, TID as needed for pain, 90 tab(s), Refill(s) 0, [id number], 175, cm, 04/08/23 13:30:00 EST, Height/Length Dosing, 83.9, kg, 01/19/23 11:34:00 EDT, Weight Dosing Start Date: 04/08/23 Status: Ordered Start: 2023 Mccune 325 mg-5 mg oral tablet 1 tab(s), Oral, TID as needed for pain, 90 tab(s), Refill(s) 0, [facility]/pharmacy #[id number], 175, cm, 01/19/23 11:34:00 EDT, Height/Length Dosing, 83.9, kg, 01/19/23 11:34:00 EDT, Weight Dosing Start Date: 01/19/23 Status: Ordered Start: 11-27-2022 Mccune 325 mg-5 mg oral tablet 1 tab(s), Oral, TID as needed for pain, 90 tab(s), Refill(s) 0, [facility]/pharmacy #[id number], 175, cm, 11/27/22 10:15:00 EDT, [...] for 30 day(s), 45 tab(s), Refill(s) 0, [facility]/pharmacy #[id number], 175, cm, 12/04/23 10:56:00 EDT, [...] Start: 10-15-2022 take 1 capsule by mo [facility] at bedtime acetaZOLAMIDE 500 mg oral capsule, [...] Matthews MD Start : 07-Nov-2019 Active Milliliter [id number] 200 actuat albuterol 0.09 mg/actuat metered dose [...] Active Start: 01-04-2019 take 1 capsule by [facility] three times daily as needed Benzonatate 200 [...] Start: 04-19-2020 take 2 puff(s) by mo [facility] twice daily budesonide-formoterol (SYMBICORT) 160-4.5 MCG/ACT AERO [...] Start: 03-21-2019 take 1 capsule by mo [facility] once daily DULoxetine (CYMBALTA) 30 MG extended [...] Active Start: 10-25-2018 take 1 tablet by trudi four times daily Gabapentin 600 MG Oral Tablet TAKE 1 TABLET 4 TIMES DAILY Quantity: 360 Refills: 1 Ordered: 17-Oct-2020 Mathew Miller MD Start : 25-Oct-2018 Active Start: 09-01-2017 take 1 capsule by mo [facility] three times daily Gabapentin 300 MG Oral [...] Active Normal saline (1 source) Start: 07-21-2017 [place] Saline Nasal Nasal Gel Apply twice a [...] Matthews MD Start : 23-Feb-2020 Active nystatin 870734 unt/ml oral suspension (20 sources) Polyene Antifungal [...] mouth f our times daily nystatin (MYCOSTATIN) 555047 UNIT/ML suspension Take 5 mLs by mouth 4 times daily 150 mL 0 05/11/2019 Active Nystatin 406396 UNIT/ML SWISH AND SWALLOW 5 ML 4 [...] Start: 08-11-2019 take 3 tablets by mo [facility] once daily in the morning, then take [...] % sodium c hloride infusion Start: 07-21-2017 [place] Saline Johan al Nasal Gel Apply twice [...] disease (1 source) Atherosclerotic heart disease of circle coronary artery without angina pectoris; Translations: [Athscl heart disease of circle coronary artery w/o ang pctrs] Onset: 05-01-2022 [...] Problem Lis t Migration; 2012-11-20; Moved to [facility] Mar 26 2013 9:02PM; Fluid and electrolyte [...] 04-16-2022 Episodic Other aftercare (2 sources) 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; Translations: [OTH MUSEUM SPECIALIST CURRENT DRUG THERAPY] Onset: 03-31-2022 Episodic Other [...] including parasitic (20 sources) Post-viral disorder; 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 Other injuries and conditions [...] mild AI RVSP 31 No MR trace NH; NEGATED: Highlighted row has been ruled out!Coronary [...] RAYO MD This Is Your Medications List [facility] [place] (no lifting >30lbs, no bending to [...] capsule) fluticasone nasal (fluticasone Nasal 0.05 mg/inh Corazon) galcanezumab (Emgality Prefilled Pen 120 mg/mL subcutaneous [...] JESSICA PAYTON PA-C Where: [facility] [address] [address] 2024 11:30 AM EDT With: Issa Gonzales [...] fluticasone nasal (fluticasone Nasal 0.05 mg/ inh Corazon) Unchanged galcanezumab (Emgality Prefilled Pen 120 mg/ [...] potassium c (more content not included)... Normal [facility] CHEMISTRYOrdered By: SYSTEM SYSTEM on 09-14-2024 Prostate [...] 09-14-2024 Potassium [Moles/Vol] 3.8 mmol/L Normal 3.5-5.3 [facility] [employer] Comment on above: Performed By: #### 7 [id number] #### [facility] [address], [address] [place] [address] Geophysical Operator: Oh Mckenna MD PSA Totalon 09-14-2024 Prostate specific Ag [Mass/Vol] 2.5 ng/mL Normal 0.1-3.5 [facility] Comment on above: Result Comment: The concentration of PSA determined by different manufacturers can vary due to differences in assay methods and reagent specificity. Values obtained from different assay methods cannot be used interchangeably. The methodology used for this result was chemiluminescence using Dayo Sourav's Access Hybritech PSA reagent. Performed By: #### 1 [id number] #### [facility] [address] [place] [address] Potassiumon 09-14-2024 Potassium [Moles/Vol] 3.8 mmol/L 3.5 - 5.3 mmol/L [facility] Potassium [Moles/Vol]on 09-01 [facility] CBC W Auto Differential pane l (Bld)on 09-13-2024 Basophils (Bld) [#/Vol] 0.1 10*3/uL 0.0 - 0.2 10*3/uL [facility] Basophils/100 WBC Manual cnt (Syn fld) 1.4 % . [facility] Eosinophils (Bld) [#/Vol] 0.1 10*3/uL 0.0 - 0.45 10*3/uL [facility] Eosinophils/100 WBC Manual cnt (Syn fld) [...] [#/Vol] 2 10*3/uL 1.00 - 4.8 10*3/uL [facility] Lymphocytes/100 WBC Manual cnt [...] [#/Area] 5.3 10*3/uL 4.1 - 10.5 10*3/uL [facility] Complete Blood Count Auto Di ffon 09-13-2024 Basophils (Bld) [#/Vol] 0.1 10*3/uL Normal 0.0-0.2 [facility] Comment on above: Result Comment: PERF ORMED BY: [facility] [address] [place] [address] PATHOLOGIST CRM ARCHITECT BAMBI CHONG M.D. Performed By: #### C BC, FE and TIBC, BRIAN, CMP ####[address] Basophils/100 WBC (Bld) 1.4 % Normal . [facility] Comment on above: Performed By: #### C BC, FE and TIBC, BRIAN, CMP ####[address] Eosinophils (Bld) [#/Vol] 0.1 10*3/uL Normal 0.0-0.45 [facility] Comment on above: Performed By: #### C BC, FE and TIBC, BRIAN, CMP ####[address] Eosinophils/100 WBC (Bld) 1.5 % Normal . [facility] Comment on above: Performed By: #### C BC, FE and TIBC, BRIAN, CMP ####[address] Erythrocyte distribution width (RBC) [Ratio] 15.0 % High 12.0-14.8 [facility] Comment on above: Performed By: #### C BC, FE and TIBC, BRIAN, CMP ####[address] Hematocrit (Bld) [Volume fraction] 41.2 % Normal 38.8-50.0 [facility] Comment on above: Performed By: #### C BC, FE and TIBC, BRIAN, CMP ####[address] Hemoglobin (Bld) [Mass/Vol] 13.7 g/dL Normal 13.0-17.0 [facility] Comment on above: Performed By: #### C BC, FE and TIBC, BRIAN, CMP ####[address] Lymphocytes (Bld) [#/Vol] 2.0 10*3/uL Normal 1.00-4.8 [facility] Comment on above: Performed By: #### C BC, FE and TIBC, BRIAN, CMP ####[address] Lymphocytes/100 WBC (Bld) 38.1 % Normal . [facility] Comment on above: Performed By: #### C BC, FE and TIBC, BRIAN, CMP ####[address] MCH (RBC) [Entitic mass] 29.0 pg Normal 27.5-35.2 [facility] Comment on above: Performed By: #### C BC, FE and TIBC, BRIAN, CMP ####[address] MCV (RBC) [Entitic vol] 86.9 fL Normal 83.5-101 [facility] Comment on above: Performed By: #### C BC, FE and TIBC, BRIAN, CMP ####[address] Mean Corpuscular HGB Conc 33.3 g/dL Normal 32.5-35.6 [facility] Comment on above: Performed By: #### C BC, FE and TIBC, BIRAN, CMP ####[address] Monocytes (Bld) [#/Vol] 0.5 10*3/uL Normal 0.0-0.8 [facility] Comment on above: Performed By: #### C BC, FE and TIBC, BRIAN, CMP ####[address] Monocytes/100 WBC (Bld) 8.8 % Normal . [facility] Comment on above: Performed By: #### C BC, FE and TIBC, BRIAN, CMP ####[address] Neutrophils (Bld) [#/Vol] 2.6 10*3/uL Normal 1.8-7.7 [facility] Comment on above: Performed By: #### C BC, FE and TIBC, BRIAN, CMP ####[address] Neutrophils/100 WBC (Bld) 50.2 % Normal . [facility] Comment on above: Performed By: #### C BC, FE and TIBC, BRIAN, CMP ####[address] NRBC% 0.1 /100{WBC} Normal 0-0.[address] [facility] Comment on above: Performed By: #### C BC, FE and TIBC, BRIAN, CMP ####[address] Platelet mean volume (Bld) [Entitic vol] 7.7 fL Normal 6.6-10.1 [facility] Comment on above: Performed By: #### C BC, FE and TIBC, BRIAN, CMP ####[address] Platelets (Bld) [#/Vol] 187 10*3/uL Normal 150-450 [facility] Comment on above: Performed By: #### C BC, FE and TIBC, BRIAN, CMP ####[address] RBC (Bld) [#/Vol] 4.75 10*6/uL Normal 3.90-5.60 [facility] Comment on above: Performed By: #### C BC, FE and TIBC, BRIAN, CMP ####[address] WBC (Bld) [#/Vol] 5.3 10*3/uL Normal 4.1-10.5 [facility] Comment on above: Performed By: #### C BC, FE and TIBC, BRIAN, CMP ####[address] Comprehensive Metabolic Pane nanette 09-13-2024 Albumin [Mass/Vol] 3.7 g/dL Normal 3.5-5.7 [facility] Comment on above: Performed By: #### C BC, FE and TIBC, BRIAN, CMP ####[address] Albumin/Globulin [Mass ratio] 1.3 {ratio} Normal [facility] Comment on above: Performed By: #### C BC, FE and TIBC, BRIAN, CMP ####[address] ALP [Catalytic activity/Vol] 94 U/L Normal 34-104 [facility] Comment on above: Performed By: #### C BC, FE and TIBC, BRIAN, CMP ####[address] ALT [Catalytic activity/Vol] 9 U/L Normal 7-52 [facility] Comment on above: Performed By: #### C BC, FE and TIBC, BRIAN, CMP ####[address] Anion gap [Moles/Vol] 8.3 mmol/L Normal 6.0-15.0 [facility] Comment on above: Performed By: #### C BC, FE and TIBC, BRIAN, CMP ####[address] AST [Catalytic activity/Vol] 13 U/L Normal 13-39 [facility] Comment on above: Performed By: #### C BC, FE and TIBC, BRIAN, CMP ####[address] Bilirubin [Mass/Vol] 0.3 mg/dL Normal 0.3-1.0 [facility] Comment on above: Performed By: #### C BC, FE and TIBC, BRIAN, CMP ####[address] Calcium [Mass/Vol] 8.4 mg/dL Low 8.6-10.3 [facility] Comment on above: Performed By: #### C BC, FE and TIBC, BRIAN, CMP ####[address] Chloride [Moles/Vol] 110 mmol/L High 98-107 [facility] Comment on above: Performed By: #### C BC, FE and TIBC, BRIAN, CMP ####[address] CO2 [Moles/Vol] 23.6 mmol/L Normal 21.0-31.0 [facility] Comment on above: Performed By: #### C BC, FE and TIBC, BRIAN, CMP ####[address] Creatinine [Mass/Vol] 1.06 mg/dL Normal 0.70-1.30 [facility] Comment on above: Performed By: #### C BC, FE and TIBC, BRIAN, CMP ####[address] Creatinine Clr Calc Pharmacy 78.31 Normal [facility] Comment on above: Performed By: #### C BC, FE and TIBC, BRIAN, CMP ####[address] GFR/1.73 sq M.predicted MDRD (S/P/Bld) [Vol rate/Area] mL/min/{1.73_m2} Normal [facility] Comment on above: Performed By: #### C BC, FE and TIBC, BRIAN, CMP ####[address] Globulin (S) [Mass/Vol] 2.8 g/dL Normal [facility] Comment on above: Performed By: #### C BC, FE and TIBC, BRIAN, CMP ####[address] Glucose [Mass/Vol] 100 mg/dL Normal 70-100 [facility] Comment on above: Result Comment: [place] Glucose Reference Range is dependent on time and content of last meal. Glucose of more than 200 mg/dL in a nonstressed, ambulatory subject supports the diagnosis of Diabetes Mellitus. ADA recommended reference range Performed By: #### C BC, FE and TIBC, BRIAN, CMP ####[address] [place] [address] [facility] Potassium [Moles/Vol] 3.9 mmol/L Normal 3.5-5.1 [facility] Comment on above: Performed By: #### C BC, FE and TIBC, BRIAN, CMP ####[place] [id number] [facility] Protein [Mass/Vol] 6.5 g/dL Normal 6.4-8.9 [facility] Comment on above: Performed By: #### C BC, FE and TIBC, BRIAN, CMP ####[place] [id number] [facility] Sodium [Moles/Vol] 138 mmol/L Normal 136-145 [facility] Comment on above: Performed By: #### C BC, FE and TIBC, BRIAN, CMP ####[place] [id number] [facility] Urea nitrogen [Mass/Vol] 20 mg/dL Normal 7-25 [facility] Comment on above: Performed By: #### C BC, FE and TIBC, BRIAN, CMP ####[place] [id number] [facility] Ferritinon 09-13-2024 Ferritin [Mass/Vol] 16.5 ng/mL Low 23.9-336.2 [facility] Comment on above: Result Comment: PERF ORMED BY: [facility] [address] [place] [id number] PATHOLOGIST CRM ARCHITECT BAMBI CHONG M.D. Performed By: #### C BC, FE and TIBC, BRIAN, CMP ####[address] [address] [facility] Iron and TIBC Profileon 09-01 % Iron Saturation 21.5 % Normal 20-50 The [facility] Comment on above: Performed By: #### C BC, FE and TIBC, BRIAN, CMP ####[place] [id number] [facility] Iron [Mass/Vol] 66 ug/dL Normal 50-212 [facility] Comment on above: Performed By: #### C BC, FE and TIBC, BRIAN, CMP ####[facility] [id number] [place] [id number] [facility] Total Iron Binding Capacity 307 ug/dL Normal 255-450 [facility] Comment on above: Performed By: #### C BC, FE and TIBC, BRIAN, CMP ####[facility] [id number] [place] [id number] [facility] Transferrin [Mass/Vol] 219 mg/dL Normal 203-362 [facility] Comment on above: Performed By: #### C BC, FE and TIBC, BRIAN, CMP ####[facility] [id number] [place] [id number] [facility] Head/Face/Jaw Botulinum Inje ctionon 08-17-2024 Jodie Matthews [...] Please call if you have difficulty swallowing. [facility] Work Phone: [facility] Work Phone: Estimated glomerular filtrat ion rate (GFR) non- Americanon 07-01-2024 GFR/1.73 sq M.predicted among non-blacks MDRD (S/P/Bld) [Vol rate/Area] Estimated glomerular filtration rate (GFR) non- Low >=60 mL/min/1.73m 2 [facility] Globulin Calc (S) [Mass/Vol] on 07-01-2024 Globulin (S) [Mass/Vol] Serum globulin measurement by calculation (mass/volume) [facility] IgG [Mass/volume] in Serum o r Plasmaon 07-01-2024 IgG [Mass/Vol] IgG [Mass/volume] in Serum or Plasma [phone] [facility] Comment on above: Performed at: [facility] [place] [id number] Director: Wilfredo Lee PhD, Phone: [phone] Laboratory - Chemistry and C hemistry - challengeon 07-01-2024 Albumin [Mass/Vol] 3.4 g/dL 3.4-5.0 [facility] ALP [Catalytic activity/Vol] 101 U/L 46-116 [facility] ALT [Catalytic activity/Vol] 7 U/L Low 16-63 [facility] AST [Catalytic activity/Vol] U/L Low 15-37 [facility] Bilirubin [Mass/Vol] 0.2 mg/dL 0.2-1.0 [facility] Calcium [Mass/Vol] 8.1 mg/dL Low 8.5-10.1 [facility] Chloride [Moles/Vol] 107 mmol/L 98-107 [facility] CO2 [Moles/Vol] 19.4 mmol/L Low 21.0-32.0 [facility] Creatinine [Mass/Vol] 1.31 mg/dL High 0.70-1.30 [facility] GFR/1.73 sq M.predicted MDRD (S/P/Bld) [Vol rate/Area] mL/min/{1.73_m2} >=60 mL/min/1.73m 2 [facility] Glucose [Mass/Vol] 94 mg/dL 74-106 [facility] Potassium [Moles/Vol] 3.4 mmol/L Low 3.5-5.1 [facility] Protein [Mass/Vol] 7.1 g/dL 6.4-8.2 [facility] Sodium [Moles/Vol] 140 mmol/L 136-145 [facility] Urea nitrogen [Mass/Vol] 31.0 mg/dL High 7.0-18.0 [facility] Urea nitrogen/Creatinine [Mass ratio] 23.7 mg/mg [facility] Serum or plasma albumin/glob ulin mass ratioon 07-01-2024 Albumin/Globulin [Mass ratio] Serum or plasma albumin/globulin mass ratio [facility] Serum or plasma anion gap de terminationon 07-01-2024 Anion gap [Moles/Vol] Serum or plasma an ion gap determination [facility] Main OR Intraoperative Recor don 06-09-2024 Main OR Intraoperative Record Main OR Intraoperative Record IntraOp Document Type FTPM Summary Primary Physician: Issa Gonzales DO Finalized Date/Time: 06/09/24 11:27:18 Pt. Name: VELIA BAGLEY/Sex: 1960 Male Med Rec #: [id number] Physician: Issa Gonzales DO Financial #: [id number] Pt. Type: P Room/Bed: / Admit/Disch: 06/09/24 [...] Salma Rowan Role Performed Surgeon - Primary Parachute Packer - Primary Scrub - Primary Time In 06/09/24 11:21:00 06/09/24 11:21:00 06/09/24 11:21:00 Time Out 06/09/24 11:27:00 06/09/24 11:27:00 06/09/24 11:27:00 Procedure LUMBAR EPIDURAL STEROID LUMBAR EPIDURAL STEROID LUMBAR EPIDURAL STEROID INJECTION(.) INJECTION(.) INJECTION(.) Comments Last Modified By: Danyelle Rome RN, RN, Emily C Myers RN, Emily C 06/09/24 11:27:14 06/09/24 11:27:14 06/09/24 11:27:14 Entry 4 Case Attendee Rosalee Radford Role Performed Editorial Clerk Time In 06/09/24 11:21:00 Time Out 06/09/24 [...] and tissue Entry 1 Skin Integrity Intact, Goodell, Warm, & Skin Abnormality No Dry Outcomes [...] Wild GONZALEZ, (more content not included)... Normal [facility] Main OR Preoperative Recordo n 06-09-2024 Main OR Preoperative Record Main OR Preoperative Record Holding Area Document Type FTPM Summary Primary Physician: Issa Gonzales DO Finalized Date/Time: 06/09/24 10:06:39 Pt. Name: VELIA BAGLEY/Sex: 1960 Male Med Rec #: [id number] Physician: Issa Gonzales DO Financial #: [id number] Pt. Type: P Room/Bed: / Admit/Disch: 06/09/24 [...] By: Steffanie Freeman RN 06/09/24 10:06 Normal [facility] Operative Reporton Operative Report Operative Report Diagnosis: [...] the epidural space was confirmed using the [id number] technique and 2 cc of air. Injection [...] agrees to continue currently prescribed/recommended therapies. Normal [facility] Comment on above: Result Comment: Elec tronically Signed By: Issa Gonzales DO\Date and Time Signed: 06/09/24 11:27 EST Alanine aminotransferase [En zymatic activity/volume] in Serum or PlasmaOrdered By: Melissa Wilson on 05-27-2024 ALT [Catalytic activity/Vol] Alanine aminotransferase [Enzymatic activity/volume] in Serum or Plasma 7-52 [facility] Albumin [Mass/volume] in Ser um or Plasma by Bromocresol green (BCG) dye binding methoOrdered By: Melissa Wilson on 05-27-2024 Albumin BCG dye [Mass/Vol] Albumin [Mass/volume] in Serum or Plasma by Bromocresol green (BCG) dye binding metho 3.5-5.7 [facility] Alkaline phosphatase [Enzyma tic activity/volume] in Serum or PlasmaOrdered By: Melissa Wilson on 05-27-2024 ALP [Catalytic activity/Vol] Alkaline phosphatase [Enzymatic activity/volume] in Serum or Plasma 34-104 [facility] Aspartate aminotransferase [ Enzymatic activity/volume] in Serum or PlasmaOrdered By: Melissa Wilson on 05-27-2024 AST [Catalytic activity/Vol] Aspartate aminotransferase [Enzymatic activity/volume] in Serum or Plasma 13-39 [facility] Basophils Auto (Bld) [#/Vol] Ordered By: Melissa Wilson on 05-27-2024 Basophils (Bld) [#/Vol] Automated basophil count 0.0-0.2 [facility] Basophils/100 WBC Auto (Bld) Ordered By: Melissa Wilson on 05-27-2024 Basophils/100 WBC (d) Automated basophil % . [facility] Bilirubin.total [Mass/volume ] in Serum or PlasmaOrdered By: Melissa Wilson on 05-27-2024 Bilirubin [Mass/Vol] Bilirubin.total [Mass/volume] in Serum or Plasma 0.3-1.0 [facility] CBC W Auto Differential pane l (Bld)on [...] 229 10*3/uL 150 - 450 10*3/uL [facility] RBC LM.HPF (Urine sed) [#/Area] 5.14 10*6/uL 3.90 - 5.60 10*6/uL [facility] WBC (Bld) [#/Vol] 5.3 10*3/uL 4.1 - 10.5 10*3/uL [facility] WBC LM.HPF (Urine sed) [#/Area] 5.3 10*3/uL 4.1 - 10.5 10*3/uL [facility] Calcium [Mass/volume] in Ser um or PlasmaOrdered By: [facility] Steve on 05-27-2024 Calcium [Mass/Vol] Calcium [Mass/volume ] in Serum or Plasma 8.6-10.3 [facility] Carbon dioxide, total [Moles /volume] in Serum or PlasmaOrdered By: Melissa Steve on 05-27-2024 CO2 [Moles/Vol] Carbon dioxide, tota l [Moles/volume] in Serum or Plasma 21.0-31.0 [facility] Chloride [Moles/volume] in S isael or PlasmaOrdered By: Melissa Steve on 05-27-2024 Chloride [Moles/Vol] Chloride [Moles/vol ume] in Serum or Plasma High 98-107 [facility] Complete Blood Count Auto Di ffon 05-27-2024 Basophils (Bld) [#/Vol] 0.1 10*3/uL Normal 0.0-0.2 [facility] Comment on above: Result Comment: PERF ORMED BY: [address] [place] [address] PATHOLOGIST CRM ARCHITECT BAMBI CHONG M.D. Performed By: #### F ER, FE and TIBC, CMP, CBC #### [facility] [address] [place] [address] [place] Basophils/100 WBC (Bld) 1.2 % Normal . [facility] Comment on above: Performed By: #### F ER, FE and TIBC, CMP, CBC #### [facility] [address] [place] [address] [place] Eosinophils (Bld) [#/Vol] 0.1 10*3/uL Normal 0.0-0.45 [facility] Comment on above: Performed By: #### F ER, FE and TIBC, CMP, CBC #### [address] Eosinophils/100 WBC (Bld) 1.5 % Normal . [facility] Comment on above: Performed By: #### F ER, FE and TIBC, CMP, CBC #### [address] Erythrocyte distribution width (RBC) [Ratio] 14.9 % High 12.0-14.8 [facility] Comment on above: Performed By: #### F ER, FE and TIBC, CMP, CBC #### [address] Hematocrit (Bld) [Volume fraction] 44.5 % Normal 38.8-50.0 [facility] Comment on above: Performed By: #### F ER, FE and TIBC, CMP, CBC #### [address] Hemoglobin (Bld) [Mass/Vol] 14.7 g/dL Normal 13.0-17.0 [facility] Comment on above: Performed By: #### F ER, FE and TIBC, CMP, CBC #### [address] Lymphocytes (Bld) [#/Vol] 1.7 10*3/uL Normal 1.00-4.8 [facility] Comment on above: Performed By: #### F ER, FE and TIBC, CMP, CBC #### [address] Lymphocytes/100 WBC (Bld) 31.8 % Normal . [facility] Comment on above: Performed By: #### F ER, FE and TIBC, CMP, CBC #### [address] MCH (RBC) [Entitic mass] 28.6 pg Normal 27.5-35.2 [facility] Comment on above: Performed By: #### F ER, FE and TIBC, CMP, CBC #### [address] MCV (RBC) [Entitic vol] 86.6 fL Normal 83.5-101 [facility] Comment on above: Performed By: #### F ER, FE and TIBC, CMP, CBC #### [address] Mean Corpuscular HGB Conc 33.1 g/dL Normal 32.5-35.6 [facility] Comment on above: Performed By: #### F ER, FE and TIBC, CMP, CBC #### [address] Monocytes (Bld) [#/Vol] 0.4 10*3/uL Normal 0.0-0.8 [facility] Comment on above: Performed By: #### F ER, FE and TIBC, CMP, CBC #### [address] Monocytes/100 WBC (Bld) 7.9 % Normal . [facility] Comment on above: Performed By: #### F ER, FE and TIBC, CMP, CBC #### [address] Neutrophils (Bld) [#/Vol] 3.1 10*3/uL Normal 1.8-7.7 [facility] Comment on above: Performed By: #### F ER, FE and TIBC, CMP, CBC #### [address] Neutrophils/100 WBC (Bld) 57.6 % Normal . [facility] Comment on above: Performed By: #### F ER, FE and TIBC, CMP, CBC #### [address] NRBC% 0.1 /100{WBC} Normal 0-0.[address] [facility] Comment on above: Performed By: #### F ER, FE and TIBC, CMP, CBC #### [address] Platelet mean volume (Bld) [Entitic vol] 7.9 fL Normal 6.6-10.1 [facility] Comment on above: Performed By: #### F ER, FE and TIBC, CMP, CBC #### [address] Platelets (Bld) [#/Vol] 229 10*3/uL Normal 150-450 [facility] Comment on above: Performed By: #### F ER, FE and TIBC, CMP, CBC #### [address] RBC (Bld) [#/Vol] 5.14 10*6/uL Normal 3.90-5.60 [facility] Comment on above: Performed By: #### F ER, FE and TIBC, CMP, CBC #### [address] WBC (Bld) [#/Vol] 5.3 10*3/uL Normal 4.1-10.5 [facility] Comment on above: Performed By: #### F ER, FE and TIBC, CMP, CBC #### [address] Comprehensive Metabolic Pane nanette 05-27-2024 Albumin [Mass/Vol] 4.0 g/dL Normal 3.5-5.7 [facility] Comment on above: Performed By: #### F ER, FE and TIBC, CMP, CBC #### [address] Albumin/Globulin [Mass ratio] 1.5 {ratio} Normal [facility] Comment on above: Performed By: #### F ER, FE and TIBC, CMP, CBC #### [address] ALP [Catalytic activity/Vol] 101 U/L Normal 34-104 [facility] Comment on above: Performed By: #### F ER, FE and TIBC, CMP, CBC #### [facility] [address] ALT [Catalytic activity/Vol] 7 U/L Normal 7-52 [facility] Comment on above: Performed By: #### F ER, FE and TIBC, CMP, CBC #### [facility] [address] Anion gap [Moles/Vol] 9.9 mmol/L Normal 6.0-15.0 [facility] Comment on above: Performed By: #### F ER, FE and TIBC, CMP, CBC #### [address] AST [Catalytic activity/Vol] 13 U/L Normal 13-39 [facility] Comment on above: Performed By: #### F ER, FE and TIBC, CMP, CBC #### [address] Bilirubin [Mass/Vol] 0.5 mg/dL Normal 0.3-1.0 [facility] Comment on above: Performed By: #### F ER, FE and TIBC, CMP, CBC #### [facility] [address] [place] [address] [place] Calcium [Mass/Vol] 8.6 mg/dL Normal 8.6-10.3 [facility] Comment on above: Performed By: #### F ER, FE and TIBC, CMP, CBC #### [place] [address] [place] Chloride [Moles/Vol] 109 mmol/L High 98-107 [facility] Comment on above: Performed By: #### F ER, FE and TIBC, CMP, CBC #### [facility] [address] [place] [address] [place] CO2 [Moles/Vol] 22.5 mmol/L Normal 21.0-31.0 [facility] Comment on above: Performed By: #### F ER, FE and TIBC, CMP, CBC #### [facility] [address] [place] [address] [place] Creatinine [Mass/Vol] 1.30 mg/dL Normal 0.70-1.30 [facility] Comment on above: Performed By: #### F ER, FE and TIBC, CMP, CBC #### [address] Creatinine Clr Calc Pharmacy 58.16 Normal [facility] Comment on above: Performed By: #### F ER, FE and TIBC, CMP, CBC #### [address] GFR/1.73 sq M.predicted MDRD (S/P/Bld) [Vol rate/Area] mL/min/{1.73_m2} Normal [facility] Comment on above: Performed By: #### F ER, FE and TIBC, CMP, CBC #### [address] Globulin (S) [Mass/Vol] 2.6 g/dL Normal [facility] Comment on above: Performed By: #### F ER, FE and TIBC, CMP, CBC #### [address] Glucose [Mass/Vol] 94 mg/dL Normal 70-100 [facility]ician Group Comment on above: Result Comment: [facility]er Glucose Reference Range is dependent on time and content of last meal. Glucose of more than 200 mg/dL in a nonstressed, ambulatory subject supports the diagnosis of Diabetes Mellitus. ADA recommended reference range Performed By: #### F ER, FE and TIBC, CMP, CBC #### [address] Potassium [Moles/Vol] 3.4 mmol/L Low 3.5-5.1 [facility] Comment on above: Performed By: #### F ER, FE and TIBC, CMP, CBC #### [address] Protein [Mass/Vol] 6.6 g/dL Normal 6.4-8.9 [facility] Comment on above: Performed By: #### F ER, FE and TIBC, CMP, CBC #### [place] [id number] [place] Sodium [Moles/Vol] 138 mmol/L Normal 136-145 [facility] Comment on above: Performed By: #### F ER, FE and TIBC, CMP, CBC #### [facility] [address] Urea nitrogen [Mass/Vol] 27 mg/dL High 7-25 [facility] Comment on above: Performed By: #### F ER, FE and TIBC, CMP, CBC #### [facility] [address] [place] [address] [place] Creatinine [Mass/volume] in Serum or PlasmaOrdered By: Melissa Wilson on 05-27-2024 Creatinine [Mass/Vol] Creatinine [Mass/v olume] in Serum or Plasma 0.70-1.30 [facility] Eosinophils Auto (Bld) [#/Vo l]Ordered By: Melissa Wilson on 05-27-2024 Eosinophils (Bld) [#/Vol] Automated eosinophil count 0.0-0.45 [facility] Eosinophils/100 WBC Auto (Bl d)Ordered By: Melissa Wilson on 05-27-2024 Eosinophils/100 WBC (Bld) Automated eosinophil % . [facility] Erythrocyte distribution wid th Auto (RBC) [Ratio]Ordered By: Melissa Wilson on 05-27-2024 Erythrocyte distribution width (RBC) [Ratio] Erythrocyte distribution width [Ratio] by Automated count High 12.0-14.8 [facility] Ferritinon 05-27-2024 Ferritin [Mass/Vol] 22.6 ng/mL Low 23.9-336.2 [facility] Comment on above: Result Comment: PERF ORMED BY: [facility] [address] [place] [address] PATHOLOGIST CRM ARCHITECT BAMBI CHONG M.D. Performed By: #### F ER, FE and TIBC, CMP, CBC ####[facility] [id number] [place] [address] [place] Ferritin [Mass/volume] in Se rum or PlasmaOrdered By: Melissa Wilson on 05-27-2024 Ferritin [Mass/Vol] Ferritin [Mass/volum e] in Serum or Plasma Low 23.9-336.2 [facility] Globulin Calc (S) [Mass/Vol] Ordered By: Melissa Wilson on 05-27-2024 Globulin (S) [Mass/Vol] Serum globulin measurement by calculation (mass/volume) [facility] Glucose [Mass/volume] in Ser um or PlasmaOrdered By: Melissa Wilson on 05-27-2024 Glucose [Mass/Vol] Glucose [Mass/volume ] in Serum or Plasma 70-100 [facility] Comment on above: ADA recommended refe rence rangeRandom Glucose Reference Range is dependent on time and content of last meal. Glucose of more than 200 mg/dL in a nonstressed, ambulatory subject supports the diagnosis of Diabetes Mellitus. Hematocrit Auto (Bld) [Volum e fraction]Ordered By: Melissa Wilson on 05-27-2024 Hematocrit (Bld) [Volume fraction] Hematocrit [Volume Fraction] of Blood by Automated count 38.8-50.0 [facility] Hemoglobin [Mass/volume] in BloodOrdered By: Melissa Wilson on 05-27-2024 Hemoglobin (Bld) [Mass/Vol] Hemoglobin [Mass/volume] in Blood 13.0-17.0 [facility] Iron [Mass/volume] in Serum or PlasmaOrdered By: Melissa Wilson on 05-27-2024 Iron [Mass/Vol] Iron [Mass/volume] i n Serum or Plasma 50-212 [facility] Iron and TIBC Profileon 05-05 % Iron Saturation 60.7 % High 20-50 The [facility] Comment on above: Performed By: #### F ER, FE and TIBC, CMP, CBC ####[facility] [id number] [place] [address] [facility] Iron [Mass/Vol] 204 ug/dL Normal 50-212 [facility] Comment on above: Performed By: #### F ER, FE and TIBC, CMP, CBC ####[facility] [id number] [place] [address] [facility] Total Iron Binding Capacity 336 ug/dL Normal 255-450 [facility] Comment on above: Performed By: #### F ER, FE and TIBC, CMP, CBC ####[facility] [id number] [place] [address] [facility] Transferrin [Mass/Vol] 240 mg/dL Normal 203-362 [facility] Comment on above: Performed By: #### F ER, FE and TIBC, CMP, CBC ####[facility] [id number] [place] [id number] [facility] Leukocytes [#/volume] correc adalberto for nucleated erythrocytes in Blood by Automated counOrdered By: Melissa Wilson on 05-27-2024 WBC corrected for nucl RBC Auto (Bld) [#/Vol] Leukocytes [#/volume] corrected for nucleated erythrocytes in Blood by Automated coun 4.1-10.5 [facility] Lymphocytes Auto (Bld) [#/Vo l]Ordered By: Melissa Wilson on 05-27-2024 Lymphocytes (Bld) [#/Vol] Lymphocytes [#/volume] in Blood by Automated count 1.00-4.8 [facility] Lymphocytes/100 WBC Auto (Bl d)Ordered By: Melissa Wilson on 05-27-2024 Lymphocytes/100 WBC (Bld) Lymphocytes/100 leukocytes in Blood by Automated count . [facility] MCH Auto (RBC) [Entitic mass ]Ordered By: Melissa Wilson on 05-27-2024 MCH (RBC) [Entitic mass] MCH [Entitic mass] by Automated count 27.5-35.2 [facility] MCHC Auto (RBC) [Mass/Vol]Or dered By: Melissa Wilson on 05-27-2024 MCHC (RBC) [Mass/Vol] MCHC [Mass/volume] by Automated count 32.5-35.6 [facility] MCV Auto (RBC) [Entitic vol] Ordered By: Melissa Wilson on 05-27-2024 MCV (RBC) [Entitic vol] MCV [Entitic volume] by Automated count 83.5-101 [facility] Monocytes Auto (Bld) [#/Vol] Ordered By: Melissa Wilson on 05-27-2024 Monocytes (Bld) [#/Vol] Automated blood monocyte count 0.0-0.8 [facility] Monocytes/100 WBC Auto (Bld) Ordered By: Melissa Wilson on 05-27-2024 Monocytes/100 WBC (Bld) Automated monocyte % . [facility] Neutrophils Auto (Bld) [#/Vo l]Ordered By: Melissa Wilson on 05-27-2024 Neutrophils (Bld) [#/Vol] Neutrophils [#/volume] in Blood by Automated count 1.8-7.7 [facility] Neutrophils/100 WBC Auto (Bl d)Ordered By: Melissa Wilson on 05-27-2024 Neutrophils/100 WBC (Bld) Automated neutrophil % . [facility] No Panel InformationOrdered By: Melissa Wilson on 05-27-2024 Estimated GFR (CKD-EPI) > 60.0 mL/Min [facility] Creatinine Clearance (Chem 58.16 [facility] Nucleated erythrocytes [Pres ence] in Blood by Automated countOrdered By: Melissa Wilson on 05-27-2024 Nucleated RBC Auto Ql (Bld) Nucleated erythrocytes [Presence] in Blood by Automated count 0-0.5 [facility] Platelet mean volume Auto (B ld) [Entitic vol]Ordered By: Melissa Wilson on 05-27-2024 Platelet mean volume (Bld) [Entitic vol] Platelet mean volume [Entitic volume] in Blood by Automated count 6.6-10.1 [facility] Platelets Auto (Bld) [#/Vol] Ordered By: Melissa Wilson on 05-27-2024 Platelets (Bld) [#/Vol] Platelets [#/volume] in Blood by Automated count 150-450 [facility] Potassium [Moles/volume] in Serum or PlasmaOrdered By: Melissa Wilson on 05-27-2024 Potassium [Moles/Vol] Potassium [Moles/v olume] in Serum or Plasma Low 3.5-5.1 [facility] Protein [Mass/volume] in Ser um or PlasmaOrdered By: Melissa Wilson on 05-27-2024 Protein [Mass/Vol] Protein [Mass/volume ] in Serum or Plasma 6.4-8.9 [facility] RBC Auto (Bld) [#/Vol]Ordere d By: Melissa Wilson on 05-27-2024 RBC (Bld) [#/Vol] Erythrocytes [#/volu me] in Blood by Automated count 3.90-5.60 [facility] Serum or plasma albumin/glob ulin mass ratioOrdered By: Melsisa Wilson on 05-27-2024 Albumin/Globulin [Mass ratio] Serum or plasma albumin/globulin mass ratio [facility] Serum or plasma anion gap de terminationOrdered By: Melissa Wilson on 05-27-2024 Anion gap [Moles/Vol] Serum or plasma an ion gap determination 6.0-15.0 [facility] Serum or plasma iron binding capacity measurement (mass/volume)Ordered By: Melissa Wilson on 05-27-2024 Iron binding capacity [Mass/Vol] Iron binding capacity [Mass/volume] in Serum or Plasma 255-450 [facility] Serum or plasma iron saturat ion measurement (mass fraction)Ordered By: Melissa Wilson on 05-27-2024 Iron saturation [Mass fraction] Iron saturation [Mass Fraction] in Serum or Plasma High 20-50 [facility] Sodium [Moles/volume] in Ser um or PlasmaOrdered By: Melissa Wilson on 05-27-2024 Sodium [Moles/Vol] Sodium [Moles/volume ] in Serum or Plasma 136-145 [facility] Transferrin [Mass/volume] in Serum or PlasmaOrdered By: Melissa Wilson on 05-27-2024 Transferrin [Mass/Vol] Transferrin [Mass/volume] in Serum or Plasma 203-362 [facility] Urea nitrogen [Mass/volume] in Serum or PlasmaOrdered By: Melissa Wilson on 05-27-2024 Urea nitrogen [Mass/Vol] Urea nitrogen [Mass/volume] in Serum or Plasma High 7-25 [facility] WBC Auto (Bld) [#/Vol]Ordere d By: Melissa Wilson on 05-27-2024 WBC (Bld) [#/Vol] Leukocytes [#/volume ] in Blood by Automated count 4.1-10.5 [facility] Head/Face/Jaw Botulinum Inje ctionon 05-11-2024 Jodie Matthews [...] and call on the next business day. [facility] Work Phone: [facility] Work Phone: CT CHEST HIGH RESOLUTIONon 1 05-08-2023 CT CHEST HIGH RESOLUTION Interpreted By: Kolby Gutierrez and Kelly Rory STUDY: CT CHEST HIGH RESOLUTION; 03/08/2024 1:41 pm INDICATION: Signs/Symptoms:ILD post covid. COMPARISON: High-resolution chest CT dated 02/16/2023 and 05/01/2022. ACCESSION NUMBER(S): [id number] ORDERING CLINICIAN: RIHC MAGANA TECHNIQUE: Using helical multidetector technique, volumetric [...] reviewed the images/study with Eugenio Mccann MD (Investigator Vice) and I agree with the findings as stated. Signed by: Kolby Gutierrez 03/08/2024 2:51 PM Dictation workstation: [id number] [facility] Comment on above: Order Comment: Supin [...] reviewed the images/study with Eugenio Mccann MD (Investigator Vice) and I agree with the findings as stated. Signed by: Kolby Gutierrez 03/08/2024 2:51 PM Dictation workstation: [id number] Interpreted By: Kolby Lowe and Siobhan Becker STUDY: CT CHEST HIGH RESOLUTION; 03/08/2024 1:41 pm INDICATION: Signs/Symptoms:ILD post covid. COMPARISON: High-resolution chest CT dated 02/16/2023 and 05/01/2022. ACCESSION NUMBER(S): [id number] ORDERING CLINICIAN: RICH MAGANA TECHNIQUE: Using helical [...] CT dated 02/16/2023 and 05/01/2022. ACCESSION NUMBER(S): [id number] ORDERING CLINICIAN: RICH MAGANA TECHNIQUE: Using helical [...] reviewed the images/study with Eugenio Mccann MD (Investigator Vice) and I agree with the findings as stated. Signed by: Kolby Gutierrez 03/08/2024 2:51 PM Dictation workstation: [id number] [facility] Work Phone: Radiology Study observation (narrative) [facility] Work Phone: CT ChestOrdered By: Kolby hoffman on 03-08-2024 [facility] Work Phone: Pulmonary function testingon 03-08-2024 FEV1 53 liters [facility] Work Phone: FEV1/FVC 126 % [facility] Work Phone: FVC 42 liters [facility] Work Phone: [facility] Work Phone: CBC W Auto Differential pane [...] 4 10*3/uL Low 4.1 - 10.5 10*3/uL [facility] Complete Blood Count Auto Di ffon 03-03-2024 Basophils (Bld) [#/Vol] 0.0 10*3/uL Normal 0.0-0.2 [facility] Comment on above: Result Comment: PERF ORMED BY: [facility] [address] [place], [place] [address] PATHOLOGIST CRM ARCHITECT SEBASTIAN KATZ M.D. Performed By: #### C MP, BRIAN, FE and TIBC, CBC #### [address] Basophils/100 WBC (Bld) 0.4 % Normal . [facility] Comment on above: Performed By: #### C MP, BRIAN, FE and TIBC, CBC #### [address] Eosinophils (Bld) [#/Vol] 0.0 10*3/uL Normal 0.0-0.45 [facility] Comment on above: Performed By: #### C MP, BRIAN, FE and TIBC, CBC #### [address] Eosinophils/100 WBC (Bld) 0.1 % Normal . [facility] Comment on above: Performed By: #### C MP, BRIAN, FE and TIBC, CBC #### [address] Erythrocyte distribution width (RBC) [Ratio] 14.2 % Normal 12.0-14.8 [facility] Comment on above: Performed By: #### C MP, BRIAN, FE and TIBC, CBC #### [address] Hematocrit (Bld) [Volume fraction] 44.2 % Normal 38.8-50.0 [facility] Comment on above: Performed By: #### C MP, BRIAN, FE and TIBC, CBC #### [address] Hemoglobin (Bld) [Mass/Vol] 14.8 g/dL Normal 13.0-17.0 [facility] Comment on above: Performed By: #### C MP, BRIAN, FE and TIBC, CBC #### [address] Lymphocytes (Bld) [#/Vol] 0.4 10*3/uL Low 1.00-4.8 [facility] Comment on above: Performed By: #### C MP, BRIAN, FE and TIBC, CBC #### [address] Lymphocytes/100 WBC (Bld) 9.9 % Normal . [facility] Comment on above: Performed By: #### C MP, BRIAN, FE and TIBC, CBC #### [address] MCH (RBC) [Entitic mass] 30.2 pg Normal 27.5-35.2 [facility] Comment on above: Performed By: #### C MP, BRIAN, FE and TIBC, CBC #### [address] MCV (RBC) [Entitic vol] 90.1 fL Normal 83.5-101 [facility] Comment on above: Performed By: #### C MP, BRIAN, FE and TIBC, CBC #### [address] Mean Corpuscular HGB Conc 33.5 g/dL Normal 32.5-35.6 [facility] Comment on above: Performed By: #### C MP, BRIAN, FE and TIBC, CBC #### [address] Monocytes (Bld) [#/Vol] 0.1 10*3/uL Normal 0.0-0.8 [facility] Comment on above: Performed By: #### C MP, BRIAN, FE and TIBC, CBC #### [address] Monocytes/100 WBC (Bld) 1.5 % Normal . [facility] Comment on above: Performed By: #### C MP, BRIAN, FE and TIBC, CBC #### [address] Neutrophils (Bld) [#/Vol] 3.5 10*3/uL Normal 1.8-7.7 [facility] Comment on above: Performed By: #### C MP, BRIAN, FE and TIBC, CBC #### [address] Neutrophils/100 WBC (Bld) 88.1 % Normal . [facility] Comment on above: Performed By: #### C MP, BRIAN, FE and TIBC, CBC #### [address] NRBC% 0.1 /100{WBC} Normal 0-0.[address] [facility] Comment on above: Performed By: #### C MP, BRIAN, FE and TIBC, CBC #### [address] Platelet mean volume (Bld) [Entitic vol] 7.6 fL Normal 6.6-10.1 The [facility] Comment on above: Performed By: #### C MP, BRIAN, FE and TIBC, CBC #### [address] Platelets (Bld) [#/Vol] 205 10*3/uL Normal 150-450 [facility] Comment on above: Performed By: #### C MP, BRIAN, FE and TIBC, CBC #### [address] RBC (Bld) [#/Vol] 4.91 10*6/uL Normal 3.90-5.60 [facility] Comment on above: Performed By: #### C MP, BRIAN, FE and TIBC, CBC #### [address] WBC (Bld) [#/Vol] 4.0 10*3/uL Low 4.1-10.5 [facility] Comment on above: Performed By: #### C MP, BRIAN, FE and TIBC, CBC #### [address] Comprehensive Metabolic Pane [facility] 03-03-2024 Albumin [Mass/Vol] 3.9 g/dL Normal 3.5-5.7 [facility] Comment on above: Performed By: #### C MP, BRIAN, FE and TIBC, CBC #### [address] Albumin/Globulin [Mass ratio] 1.0 {ratio} Normal [facility] Comment on above: Performed By: #### C MP, BRIAN, FE and TIBC, CBC #### [address] ALP [Catalytic activity/Vol] 94 U/L Normal 34-104 [facility] Comment on above: Performed By: #### C MP, BRIAN, FE and TIBC, CBC #### [address] ALT [Catalytic activity/Vol] 8 U/L Normal 7-52 [facility] Comment on above: Performed By: #### C MP, BRIAN, FE and TIBC, CBC #### [address] Anion gap [Moles/Vol] 8.6 mmol/L Normal 6.0-15.0 [facility] Comment on above: Performed By: #### C MP, BRIAN, FE and TIBC, CBC #### [address] AST [Catalytic activity/Vol] 14 U/L Normal 13-39 [facility] Comment on above: Performed By: #### C MP, BRIAN, FE and TIBC, CBC #### [address] Bilirubin [Mass/Vol] 0.4 mg/dL Normal 0.3-1.0 [facility] Comment on above: Performed By: #### C MP, BRIAN, FE and TIBC, CBC #### [address] Calcium [Mass/Vol] 8.4 mg/dL Low 8.6-10.3 [facility] Comment on above: Performed By: #### C MP, BRIAN, FE and TIBC, CBC #### [address] Chloride [Moles/Vol] 110 mmol/L High 98-107 [facility] Comment on above: Performed By: #### C MP, BRIAN, FE and TIBC, CBC #### [facility] [address] CO2 [Moles/Vol] 23.6 mmol/L Normal 21.0-31.0 [facility] Comment on above: Performed By: #### C MP, BRIAN, FE and TIBC, CBC #### [facility] [address] Creatinine [Mass/Vol] 1.00 mg/dL Normal 0.70-1.30 [facility] Comment on above: Performed By: #### C MP, BRIAN, FE and TIBC, CBC #### [place] [address] [place] Creatinine Clr Calc Pharmacy 75.61 Normal [facility] Comment on above: Performed By: #### C MP, BRIAN, FE and TIBC, CBC #### [address] GFR/1.73 sq M.predicted MDRD (S/P/Bld) [Vol rate/Area] mL/min/{1.73_m2} Normal [facility] Comment on above: Performed By: #### C MP, BRIAN, FE and TIBC, CBC #### [address] Globulin (S) [Mass/Vol] 3.8 g/dL Normal [facility] Comment on above: Performed By: #### C MP, BRIAN, FE and TIBC, CBC #### [address] Glucose [Mass/Vol] 119 mg/dL High 70-100 [facility] Comment on above: Result Comment: [facility] Glucose Reference Range is dependent on time and content of last meal. Glucose of more than 200 mg/dL in a nonstressed, ambulatory subject supports the diagnosis of Diabetes Mellitus. ADA recommended reference range Performed By: #### C MP, BRIAN, FE and TIBC, CBC #### [address] Potassium [Moles/Vol] 4.2 mmol/L Normal 3.5-5.1 [facility] Comment on above: Performed By: #### C MP, BRIAN, FE and TIBC, CBC #### [address] Protein [Mass/Vol] 7.7 g/dL Normal 6.4-8.9 [facility] Comment on above: Performed By: #### C MP, BRIAN, FE and TIBC, CBC #### [address] Sodium [Moles/Vol] 138 mmol/L Normal 136-145 [facility] Comment on above: Performed By: #### C MP, BRIAN, FE and TIBC, CBC #### [address] Urea nitrogen [Mass/Vol] 24 mg/dL Normal 7-25 [facility] Comment on above: Performed By: #### C MP, BRIAN, FE and TIBC, CBC #### [address] Ferritinon 03-03-2024 Ferritin [Mass/Vol] 36.1 ng/mL Normal 23.9-336.2 [facility] Comment on above: Result Comment: PERF ORMED BY: [place] [address] PATHOLOGIST CRM ARCHITECT SEBASTIAN KATZ M.D. Performed By: #### C MP, BRIAN, FE and TIBC, CBC #### [address] Iron and TIBC Profileon 02-03 % Iron Saturation 28.0 % Normal 20-50 [facility] Comment on above: Performed By: #### C MP, BRIAN, FE and TIBC, CBC #### [address] Iron [Mass/Vol] 100 ug/dL Normal 50-212 [facility] Comment on above: Performed By: #### C MP, BRIAN, FE and TIBC, CBC #### [address] [place] [address] [facility] Total Iron Binding Capacity 357 ug/dL Normal 255-450 [facility] Comment on above: Performed By: #### C MP, BRIAN, FE and TIBC, CBC #### [facility] [address] [place] [address] [facility] Transferrin [Mass/Vol] 255 mg/dL Normal 203-362 [facility] Comment on above: Performed By: #### C MP, BRIAN, FE and TIBC, CBC #### [facility] [address] [place] [address] [facility] Pulmonary function testingon 02-16-2024 FEV1 40 liters [facility] Work Phone: FEV1/FVC 120 % [facility] Work Phone: FVC 33 liters [facility] Work Phone: [facility] Work Phone: IgG [Mass/volume] in Serum o r Plasmaon 02-04-2024 IgG [Mass/Vol] 1239 mg/dL [phone] [facility] Comment on above: Performed at: [address] Director: Wilfredo Lee PhD, Phone: [phone] Head/Face/Jaw Botulinum Inje ctionon 01-11-2024 Jodie Matthews [...] and call on the next business day. [facility] Work Phone: [facility] Work Phone: Main OR Intraoperative Recor don 12-29-2023 Main OR Intraoperative Record Main OR Intraoperative Record IntraOp Document Type FTPM Summary Primary Physician: Issa Gonzales DO Finalized Date/Time: 12/29/23 08:55:07 Pt. Name: YUDIVELIA/Sex: 1960 Male Med Rec #: [id number] Physician: Issa Gonzales DO Financial #: [id number] Pt. Type: P Room/Bed: / Admit/Disch: 12/29/23 [...] Madison A Role Performed Surgeon - Primary Editorial Clerk Parachute Packer - Primary Time In 12/29/23 08:50:00 12/29/23 [...] and tissue Entry 1 Skin Integrity Intact, Goodell, Warm, & Skin Abnormality No Dry Outcomes [...] Kendal GONZALEZ (more content not included)... Normal [facility] Main OR Preoperative Recordo n 12-29-2023 Main OR Preoperative Record Main OR Preoperative Record Holding Area Document Type FTPM Summary Primary Physician: Issa Gonzales DO Finalized Date/Time: 12/29/23 07:45:28 Pt. Name: VELIA BAGLEY/Sex: 1960 Male Med Rec #: [id number] Physician: Issa Gonzales DO Financial #: [id number] Pt. Type: P Room/Bed: / Admit/Disch: 12/29/23 [...] By: Salma Saeed RN 12/29/23 07:45 Normal [facility] Estimated glomerular filtrat ion rate (GFR) non- Americanon 12-10-2023 GFR/1.73 sq M.predicted among non-blacks MDRD (S/P/Bld) [Vol rate/Area] mL/min/{1.73_m2} >=60 [facility] Globulin Calc (S) [Mass/Vol] on 12-10-2023 Globulin (S) [Mass/Vol] 3.5 g/dL [facility] IgG [Mass/volume] in Serum o r Plasmaon 12-10-2023 IgG [Mass/Vol] 1047 mg/dL [phone] [facility] Comment on above: Performed at: [address] [place], [place] [id number] Director: Wilfredo Lee PhD, Phone: [phone] Laboratory - Chemistry and C hemistry - challengeon 12-10-2023 Albumin [Mass/Vol] 3.1 g/dL Low 3.4-5.0 [facility] ALP [Catalytic activity/Vol] 109 U/L 46-116 [facility] ALT [Catalytic activity/Vol] 8 U/L Low 16-63 [facility] AST [Catalytic activity/Vol] U/L Low 15-37 [facility] Bilirubin [Mass/Vol] 0.3 mg/dL 0.2-1.0 [facility] Calcium [Mass/Vol] 8.0 mg/dL Low 8.5-10.1 [facility] Chloride [Moles/Vol] 105 mmol/L 98-107 [facility] CO2 [Moles/Vol] 22.7 mmol/L 21.0-32.0 [facility] Creatinine [Mass/Vol] 0.96 mg/dL 0.70-1.30 [facility] GFR/1.73 sq M.predicted MDRD (S/P/Bld) [Vol rate/Area] mL/min/{1.73_m2} >=60 [facility] Glucose [Mass/Vol] 118 mg/dL High 74-106 [facility] Potassium [Moles/Vol] 3.3 mmol/L Low 3.5-5.1 [facility] Protein [Mass/Vol] 6.6 g/dL 6.4-8.2 [facility] Sodium [Moles/Vol] 136 mmol/L 136-145 [facility] Urea nitrogen [Mass/Vol] 26.0 mg/dL High 7.0-18.0 [facility] Urea nitrogen/Creatinine [Mass ratio] 27.1 mg/mg [facility] Serum or plasma albumin/glob ulin mass ratioon 12-10-2023 Albumin/Globulin [Mass ratio] 0.9 {ratio} [facility] Serum or plasma anion gap de terminationon 12-10-2023 Anion gap [Moles/Vol] 11.6 mmol/L [facility] [employer] Drug Screen-LCon 024 Test Name toxassure 23 Invalid Interpretation Code [facility] Comment on above: Performed By: #### 1 [id number] #### [facility] [address] [place] [address] Reference Laboratory Testing Ordered By: Becky Aguiar on 12-04-2023 Test Name toxassure 23 Invalid Interpretation Code [facility] Comprehensive metabolic 2000 panelon 11-30-2023 Albumin BCP dye [Mass/Vol] 4.7 g/dL Normal 3.4-5.0 [facility] Comment on above: Performed By: #### 2 4323-8 #### CRISTIN Gutierrez ([id number]) [facility] ([facility]) [id number] [place] [address]805 ALP [Catalytic activity/Vol] 115 U/L Normal 33-136 [facility] Comment on above: Performed By: #### 2 4323-8 #### CRISTIN Gutierrez ([id number]) [facility] ([facility]) [id number] [place] [address] 63988 ALT With P-5'-P [Catalytic activity/Vol] 13 U/L Normal 10-52 [facility] Comment on above: Result Comment: Mima ents treated with Sulfasalazine may generate falsely decreased results for ALT. Performed By: #### 2 4323-8 #### CRISTIN Gutierrez ([id number]) [facility] ([facility]) [id number] [place] [address] 48753 Anion gap [Moles/Vol] 13 mmol/L Normal 10-20 [facility] Comment on above: Performed By: #### 2 4323-8 #### CRISTIN Gutierrez ([id number]) [facility] ([facility]) [address] [place] [address] 49138 AST With P-5'-P [Catalytic activity/Vol] 16 U/L Normal 9-39 [facility] Comment on above: Performed By: #### 2 4323-8 #### CRISTIN Gutierrez ([id number]) [facility] ([facility]) [address] [place] [address] Bilirubin [Mass/Vol] 0.8 mg/dL Normal 0.0-1.2 [facility] Comment on above: Performed By: #### 2 4323-8 #### CRISTIN Gutierrez ([id number]) [facility] ([facility]) [address] [place] [address] Calcium [Mass/Vol] 9.8 mg/dL Normal 8.6-10.6 [facility] Comment on above: Performed By: #### 2 4323-8 #### CRISTIN DELATORRE L ([id number]) [facility] ([facility]) [address] [place] [address] Chloride [Moles/Vol] 105 mmol/L Normal 98-107 [facility] Comment on above: Performed By: #### 2 4323-8 #### CRISTIN DELATORRE L ([id number]) [facility] ([facility]) [id number] [place] [address] 07226 CO2 [Moles/Vol] 21 mmol/L Normal 21-32 [facility] Comment on above: Performed By: #### 2 4323-8 #### CRISTIN DELATORRE L ([id number]) [facility] ([facility]) [address] [place] [address] Creatinine [Mass/Vol] 0.93 mg/dL Normal 0.50-1.30 [facility] Comment on above: Performed By: #### 2 4323-8 #### CRISTIN DELATORRE L ([id number]) [facility] ([facility]) [address] [place] [address] GFR/1.73 sq M.predicted MDRD (S/P/Bld) [Vol rate/Area] mL/min/{1.73_m2} Normal >60 [facility] Comment on above: Result Comment: Calc ulations of estimated GFR are performed using the 2020 CKD-EPI Study Refit equation without the race variable for the IDMS-Traceable creatinine methods. https://jasn.asnjournals.org/content//ASN.344761 2956 Performed By: #### 2 4323-8 #### CRISTIN Gutierrez ([id number]) [facility] ([facility]) [id number] [place] [address]18 Glucose [Mass/Vol] 100 mg/dL High 74-99 [facility] Comment on above: Performed By: #### 2 4323-8 #### CRISTIN Gutierrez ([id number]) [facility] ([facility]) [address] [place] [address] 15206 Potassium [Moles/Vol] 4.1 mmol/L Normal 3.5-5.3 [facility] Comment on above: Performed By: #### 2 4323-8 #### CRISTIN Gutierrez ([id number]) [facility] ([facility]) [address] [place] [address] 43767 Protein [Mass/Vol] 8.0 g/dL Normal 6.4-8.2 [facility] Comment on above: Performed By: #### 2 4323-8 #### CRISTIN Gutierrez ([id number]) [facility] ([facility]) [id number] [place] [address] 70676 Sodium [Moles/Vol] 135 mmol/L Low 136-145 [facility] Comment on above: Performed By: #### 2 4323-8 #### CRISTIN Gutierrez ([id number]) [facility] ([facility]) [address] [place] [address] 47605 Urea nitrogen [Mass/Vol] 29 mg/dL High 6-23 [facility] Comment on above: Performed By: #### 2 4323-8 #### CRISTIN Gutierrez ([id number]) [facility] ([facility]) [address] [place] [address]35 US venous duplex NEGRA Reina US venous duplex NEGRA [facility] [address] [place] [address] [place] [address] Ultrasound Report Signed Patient: Velia Bagley MR#: [id number] 67 : 1960 Acct:[id number] Age/Sex: 63 / M ADM Date: 11/24/23 Loc: Room: Type: [facility] Attending Dr: Jessica RICHARDSONC Ordering Provider: SKY [...] Jayant Davis M.D.11/25/2023 4:12 PM Dictation Location: [place] [address] Tech: Joietres Franklin Transcribed By: MEI 11/25/23 1612 Dictated By: Jayant Davis MD 11/25/23 161 Signed By: 11/25/23 161 Normal [facility] Automated basophil %Ordered By: Melissa Wilson on 11-24-2023 Basophils/100 WBC (Bld) 0.7 % Normal . [facility] Comment on above: Performed By: #### F ER, CBC, FE and TIBC ####[facility] [id number] [place] [id number] [facility] Automated basophil countOrde red By: Melissa Wilson on 11-24-2023 Basophils (Bld) [#/Vol] 0.0 10*3/uL Normal 0.0-0.2 [facility] Comment on above: Result Comment: PERF ORMED BY: [facility] [address] [place] [address] PATHOLOGIST CRM ARCHITECT SEBASTIAN KATZ M.D. Performed By: #### F ER, CBC, FE and TIBC ####[address] Automated blood monocyte cou ntOrdered By: Melissa Wilson on 11-24-2023 Monocytes (Bld) [#/Vol] 0.4 10*3/uL Normal 0.0-0.8 [facility] Comment on above: Performed By: #### F ER, CBC, FE and TIBC ####[address] Automated eosinophil %Ordere d By: Melissa Wilson on 11-24-2023 Eosinophils/100 WBC (Bld) 0.3 % Normal . [facility] Comment on above: Performed By: #### F ER, CBC, FE and TIBC ####[address] Automated eosinophil countOr dered By: Melissa Nielsonbetsey on 11-24-2023 Eosinophils (Bld) [#/Vol] 0.0 10*3/uL Normal 0.0-0.45 [facility] Comment on above: Performed By: #### F ER, CBC, FE and TIBC ####[address] Automated monocyte %Ordered By: Melissa Nielsonbetsey on 11-24-2023 Monocytes/100 WBC (Bld) 7.1 % Normal . [facility] Comment on above: Performed By: #### F ER, CBC, FE and TIBC ####[address] Automated neutrophil %Ordere d By: Melissa Wilson on 11-24-2023 Neutrophils/100 WBC (Bld) 59.8 % Normal . [facility] Comment on above: Performed By: #### F ER, CBC, FE and TIBC ####[address] Complete Blood Count Auto Di ffon 11-24-2023 Mean Corpuscular HGB Conc 33.5 g/dL Normal 32.5-35.6 [facility] Comment on above: Performed By: #### F ER, CBC, FE and TIBC ####[address] NRBC% 0.2 /100{WBC} Normal 0-0.[address] [facility] Comment on above: Performed By: #### F ER, CBC, FE and TIBC ####[address] Erythrocyte distribution wid th [Ratio] by Automated countOrdered By: Melissa Steve on 11-24-2023 Erythrocyte distribution width (RBC) [Ratio] 14.1 % Normal 12.0-14.8 [facility] Comment on above: Performed By: #### F ER, CBC, FE and TIBC ####[address] Erythrocytes [#/volume] in B lood by Automated countOrdered By: Melissa Wilson on 11-24-2023 RBC (Bld) [#/Vol] 4.81 10*6/uL Normal 3.90-5.60 [facility] Comment on above: Performed By: #### F ER, CBC, FE and TIBC ####[place] [id number] [facility] Ferritin [Mass/volume] in Se rum or PlasmaOrdered By: Melissa Wilson on 11-24-2023 Ferritin [Mass/Vol] 71.0 ng/mL Normal 23.9-336.2 [facility] Comment on above: Result Comment: PERF ORMED BY: [facility] [address] [place] [address] PATHOLOGIST CRM ARCHITECT SEBASTIAN KATZ M.D. Performed By: #### F ER, CBC, FE and TIBC ####[address] Hematocrit [Volume Fraction] of Blood by Automated countOrdered By: Melissa Wilson on 11-24-2023 Hematocrit (Bld) [Volume fraction] 43.9 % Normal 38.8-50.0 [facility] Comment on above: Performed By: #### F ER, CBC, FE and TIBC ####[place] [id number] [facility] Hemoglobin [Mass/volume] in BloodOrdered By: Melissa Wilson on 11-24-2023 Hemoglobin (Bld) [Mass/Vol] 14.7 g/dL Normal 13.0-17.0 [facility] Comment on above: Performed By: #### F ER, CBC, FE and TIBC ####[place] [id number] [facility] Iron [Mass/volume] in Serum or PlasmaOrdered By: Melissa Wilson on 11-24-2023 Iron [Mass/Vol] 80 ug/dL Normal 50-212 [facility] Comment on above: Performed By: #### F ER, CBC, FE and TIBC ####[place] [id number] [facility] Iron and TIBC Profileon 11-02 % Iron Saturation 26.5 % Normal 20-50 [facility] Comment on above: Performed By: #### F ER, CBC, FE and TIBC ####[place] [id number] [facility] Total Iron Binding Capacity 302 ug/dL Normal 255-450 [facility] Comment on above: Performed By: #### F ER, CBC, FE and TIBC ####[place] [id number] [facility] Iron binding capacity [Mass/ volume] in Serum or PlasmaOrdered By: Melissa Wilson on 11-24-2023 Iron binding capacity [Mass/Vol] 302 ug/dL 255-450 [facility] Iron saturation [Mass Fracti on] in Serum or PlasmaOrdered By: Melissa Wilson on 11-24-2023 Iron saturation [Mass fraction] 26.5 % 20-50 [facility] Leukocytes [#/volume] correc adalberto for nucleated erythrocytes in Blood by Automated counOrdered By: Melissa Wilson on 11-24-2023 WBC corrected for nucl RBC Auto (Bld) [#/Vol] 5.0 10*3/uL 4.1-10.5 [facility] Leukocytes [#/volume] in Blo od by Automated countOrdered By: Melissa Steve on 11-24-2023 WBC (Bld) [#/Vol] 5.0 10*3/uL Normal 4.1-10.5 [facility] Comment on above: Performed By: #### F ER, CBC, FE and TIBC ####[address] Lymphocytes [#/volume] in Bl ood by Automated countOrdered By: Melissa Wilson on 11-24-2023 Lymphocytes (Bld) [#/Vol] 1.6 10*3/uL Normal 1.00-4.8 [facility] Comment on above: Performed By: #### F ER, CBC, FE and TIBC ####[address] Lymphocytes/100 leukocytes i n Blood by Automated countOrdered By: Melissa Wilson on 11-24-2023 Lymphocytes/100 WBC (Bld) 32.1 % Normal . [facility] Comment on above: Performed By: #### F ER, CBC, FE and TIBC ####[address] MCH [Entitic mass] by Automa adalberto countOrdered By: Melissa Wilson on 11-24-2023 MCH (RBC) [Entitic mass] 30.6 pg Normal 27.5-35.2 [facility] Comment on above: Performed By: #### F ER, CBC, FE and TIBC ####[address] MCHC Auto (RBC) [Mass/Vol]Or dered By: Melissa Wilson on 11-24-2023 MCHC (RBC) [Mass/Vol] 33.5 g/dL 32.5-35.6 [facility] MCV [Entitic volume] by Auto mated countOrdered By: Melissa Wilson on 11-24-2023 MCV (RBC) [Entitic vol] 91.1 fL Normal 83.5-101 [facility] Comment on above: Performed By: #### F ER, CBC, FE and TIBC ####[address] Neutrophils [#/volume] in Bl ood by Automated countOrdered By: Melissa Steve on 11-24-2023 Neutrophils (Bld) [#/Vol] 3.0 10*3/uL Normal 1.8-7.7 [facility] Comment on above: Performed By: #### F ER, CBC, FE and TIBC ####[address] Nucleated erythrocytes [Pres ence] in Blood by Automated countOrdered By: Melissa Steve on 11-24-2023 Nucleated RBC Auto Ql (Bld) 0.2 /100{WBC} 0-0.5 [facility] Platelet mean volume [Entiti c volume] in Blood by Automated countOrdered By: Melissa Steve on 11-24-2023 Platelet mean volume (Bld) [Entitic vol] 8.0 fL Normal 6.6-10.1 [facility] Comment on above: Performed By: #### F ER, CBC, FE and TIBC ####[address] Platelets [#/volume] in Bloo d by Automated countOrdered By: Melissa Steve on 11-24-2023 Platelets (Bld) [#/Vol] 183 10*3/uL Normal 150-450 [facility] Comment on above: Performed By: #### F ER, CBC, FE and TIBC ####[place] [id number] [facility] Transferrin [Mass/volume] in Serum or PlasmaOrdered By: Melissa Steve on 11-24-2023 Transferrin [Mass/Vol] 216 mg/dL Normal 203-362 [facility] Comment on above: Performed By: #### F ER, CBC, FE and TIBC ####[address] XR ankle LT min 3V*on 2023 XR ankle LT min 3V* [facility] [place] [address] [place] [address] XRay Report Signed Patient: Velia Bagley MR#: [id number] 67 : 1960 Acct:[id number] Age/Sex: 63 / M ADM Date: 11/24/23 Loc: [facility] Room: Type: [facility] Attending Dr: Jessica Rodriguez NP-C Copies [...] Last Jr., MarinaOSindi11/24/2023 3:37 PM Dictation Location: [place] [address] Transcribed By: [facility] 11/24/23 1537 Dictated By: Dustin Last Jr, DO 11/24/23 1537 Signed By: 11/24/23 1537 Normal [facility] Estimated glomerular filtrat ion rate (GFR) non- Americanon 11-12-2023 GFR/1.73 sq M.predicted among non-blacks MDRD (S/P/Bld) [Vol rate/Area] mL/min/{1.73_m2} >=60 [facility] Globulin Calc (S) [Mass/Vol] on 11-12-2023 Globulin (S) [Mass/Vol] 3.2 g/dL [facility] IgG [Mass/volume] in Serum o r Plasmaon 11-12-2023 IgG [Mass/Vol] 1036 mg/dL [phone] [facility] Comment on above: Performed at: [address] [place], [place] [id number] Director: Wilfredo Lee PhD, Phone: [phone] Laboratory - Chemistry and C hemistry - challengeon 11-12-2023 Albumin [Mass/Vol] 3.1 g/dL Low 3.4-5.0 [facility] ALP [Catalytic activity/Vol] 94 U/L 46-116 [facility] ALT [Catalytic activity/Vol] 17 U/L 16-63 [facility] AST [Catalytic activity/Vol] 12 U/L Low 15-37 [facility] Bilirubin [Mass/Vol] 0.9 mg/dL 0.2-1.0 [facility] Calcium [Mass/Vol] 8.2 mg/dL Low 8.5-10.1 [facility] Chloride [Moles/Vol] 101 mmol/L 98-107 [facility] CO2 [Moles/Vol] 23.5 mmol/L 21.0-32.0 [facility] Creatinine [Mass/Vol] 1.21 mg/dL 0.70-1.30 [facility] GFR/1.73 sq M.predicted MDRD (S/P/Bld) [Vol rate/Area] mL/min/{1.73_m2} >=60 [facility] Glucose [Mass/Vol] 119 mg/dL High 74-106 [facility] Potassium [Moles/Vol] 3.2 mmol/L Low 3.5-5.1 [facility] Protein [Mass/Vol] 6.3 g/dL Low 6.4-8.2 [facility] Sodium [Moles/Vol] 134 mmol/L Low 136-145 [facility] Urea nitrogen [Mass/Vol] 15.0 mg/dL 7.0-18.0 [facility] Urea nitrogen/Creatinine [Mass ratio] 12.4 mg/mg [facility] Serum or plasma albumin/glob ulin mass ratioon 11-12-2023 Albumin/Globulin [Mass ratio] 1.0 {ratio} [facility] Serum or plasma anion gap de terminationon 11-12-2023 Anion gap [Moles/Vol] 12.7 [facility] Basophils Auto (Bld) [#/Vol] on 10-31-2023 Basophils (Bld) [#/Vol] 0.0 10 3/uL 0.0-0.1 [facility] Basophils/100 WBC Auto (Bld) on 10-31-2023 Basophils/100 WBC (Bld) 0.1 % Low 0.2-2.0 [facility] Eosinophils/100 WBC Auto (Bl d)on 10-31-2023 Eosinophils/100 WBC (Bld) 0.0 % Low 0.9-7.0 [facility] Erythrocyte distribution wid th Auto (RBC) [Ratio]on 10-31-2023 Erythrocyte distribution width (RBC) [Ratio] 13.3 % 11.0-15.0 [facility] Estimated glomerular filtrat ion rate (GFR) non- Americanon 10-31-2023 GFR/1.73 sq M.predicted among non-blacks MDRD (S/P/Bld) [Vol rate/Area] mL/min/{1.73_m2} >=60 [facility] Globulin Calc (S) [Mass/Vol] on 10-31-2023 Globulin (S) [Mass/Vol] 3.8 g/dL [facility] Hematocrit Auto (Bld) [Volum e fraction]on 10-31-2023 Hematocrit (Bld) [Volume fraction] 45.9 % 42.0-54.0 [facility] Hemoglobin [Mass/volume] in Bloodon 10-31-2023 Hemoglobin (Bld) [Mass/Vol] 15.9 g/dL 14.0-18.0 [facility] Laboratory - Chemistry and C hemistry - challengeon 10-31-2023 Albumin [Mass/Vol] 3.0 g/dL Low 3.4-5.0 [facility] ALP [Catalytic activity/Vol] 100 U/L 46-116 [facility] ALT [Catalytic activity/Vol] 16 U/L 16-63 [facility] AST [Catalytic activity/Vol] 13 U/L Low 15-37 [facility] Bilirubin [Mass/Vol] 0.5 mg/dL 0.2-1.0 [facility] Calcium [Mass/Vol] 8.2 mg/dL Low 8.5-10.1 [facility] Chloride [Moles/Vol] 103 mmol/L 98-107 [facility] CO2 [Moles/Vol] 24.7 mmol/L 21.0-32.0 [facility] Creatinine [Mass/Vol] 1.03 mg/dL 0.70-1.30 [facility] GFR/1.73 sq M.predicted MDRD (S/P/Bld) [Vol rate/Area] mL/min/{1.73_m2} >=60 [facility] Glucose [Mass/Vol] 156 mg/dL High 74-106 [facility] Potassium [Moles/Vol] 3.6 mmol/L 3.5-5.1 [facility] Protein [Mass/Vol] 6.8 g/dL 6.4-8.2 [facility] Sodium [Moles/Vol] 138 mmol/L 136-145 [facility] Urea nitrogen [Mass/Vol] 18.0 mg/dL 7.0-18.0 [facility] Urea nitrogen/Creatinine [Mass ratio] 17.5 mg/mg [facility] Laboratory - Hematology and Cell countson 10-31-2023 Immature granulocytes/100 WBC (Bld) 0.5 % 0.0-0.5 [facility] Leukocytes [#/volume] correc adalberto for nucleated erythrocytes in Blood by Automated counon 10-31-2023 WBC corrected for nucl RBC Auto (Bld) [#/Vol] 7.3 10 3/uL 4.0-11.0 [facility] Lymphocytes Auto (Bld) [#/Vo l]on 10-31-2023 Lymphocytes (Bld) [#/Vol] 0.5 10 3/uL Low 1.2-3.8 [facility] Lymphocytes/100 WBC Auto (Bl d)on 10-31-2023 Lymphocytes/100 WBC (Bld) 6.4 % Low 20.5-60.0 [facility] MCH Auto (RBC) [Entitic mass ]on 10-31-2023 MCH (RBC) [Entitic mass] 30.5 pg 25.9-34.0 [facility] MCHC Auto (RBC) [Mass/Vol]on 10-31-2023 MCHC (RBC) [Mass/Vol] 34.6 g/dL 29.9-35.2 [facility] MCV Auto (RBC) [Entitic vol] on 10-31-2023 MCV (RBC) [Entitic vol] 87.9 fL 80.0-94.0 [facility] Monocytes Auto (Bld) [#/Vol] on 10-31-2023 Monocytes (Bld) [#/Vol] 0.1 10 3/uL Low 0.3-0.8 [facility] Monocytes/100 WBC Auto (Bld) on 10-31-2023 Monocytes/100 WBC (Bld) 1.6 % Low 1.7-12.0 [facility] Neutrophils Auto (Bld) [#/Vo l]on 10-31-2023 Neutrophils (Bld) [#/Vol] 6.7 10 3/uL High 1.4-6.5 [facility] Neutrophils/100 WBC Auto (Bl d)on 10-31-2023 Neutrophils/100 WBC (Bld) 91.4 % High 43.0-75.0 [facility] No Panel Informationon 10-30 Eosinophils # (Auto) 0.0 10 3/uL 0.0-0.7 [facility] Immature Granulocyte # (Auto) 0.04 10 3/uL High 0.00-0.03 [facility] Platelet mean volume Auto (B ld) [Entitic vol]on 10-31-2023 Platelet mean volume (Bld) [Entitic vol] 9.7 fL 9.5-13.5 [facility] Platelets Auto (Bld) [#/Vol] on 10-31-2023 Platelets (Bld) [#/Vol] 238 10 3/uL 150-450 [facility] RBC Auto (Bld) [#/Vol]on RBC (Bld) [#/Vol] 5.22 10 6/uL 4.70-6.10 [facility] Serum or plasma albumin/glob ulin mass ratioon 10-31-2023 Albumin/Globulin [Mass ratio] 0.8 {ratio} [facility] Serum or plasma anion gap de terminationon 10-31-2023 Anion gap [Moles/Vol] 13.9 mmol[facility] Basophils Auto (Bld) [#/Vol] on 10-30-2023 Basophils (Bld) [#/Vol] 0.1 10 3/uL 0.0-0.1 [facility] Basophils/100 WBC Auto (Bld) on 10-30-2023 Basophils/100 WBC (Bld) 0.6 % 0.2-2.0 [facility] Eosinophils/100 WBC Auto (Bl d)on 10-30-2023 Eosinophils/100 WBC (Bld) 0.0 % Low 0.9-7.0 [facility] Erythrocyte distribution wid th Auto (RBC) [Ratio]on 10-30-2023 Erythrocyte distribution width (RBC) [Ratio] 13.2 % 11.0-15.0 [facility] Estimated glomerular filtrat ion rate (GFR) non- Americanon 10-30-2023 GFR/1.73 sq M.predicted among non-blacks MDRD (S/P/Bld) [Vol rate/Area] mL/min/{1.73_m2} >=60 [facility] Globulin Calc (S) [Mass/Vol] on 10-30-2023 Globulin (S) [Mass/Vol] 4.3 g/dL [facility] Hematocrit Auto (Bld) [Volum e fraction]on 10-30-2023 Hematocrit (Bld) [Volume fraction] 49.6 % 42.0-54.0 [facility] Hemoglobin [Mass/volume] in Bloodon 10-30-2023 Hemoglobin (Bld) [Mass/Vol] 17.4 g/dL 14.0-18.0 [facility] Laboratory - Chemistry and C hemistry - challengeon 10-30-2023 Lactate [Moles/Vol] 2.2 mmol/L High 0.4-2.0 [facility] Comment on above: RESULTS CALLED TO Rip HarperRN)@BY Jessica Haq MLT at 2052 Albumin [Mass/Vol] 3.6 g/dL 3.4-5.0 [facility] ALP [Catalytic activity/Vol] 118 U/L High 46-116 [facility] ALT [Catalytic activity/Vol] 16 U/L 16-63 [facility] AST [Catalytic activity/Vol] 31 U/L 15-37 [facility] Bilirubin [Mass/Vol] 0.8 mg/dL 0.2-1.0 [facility] Calcium [Mass/Vol] 8.9 mg/dL 8.5-10.1 [facility] Chloride [Moles/Vol] 98 mmol/L 98-107 [facility] CO2 [Moles/Vol] 20.5 mmol/L Low 21.0-32.0 [facility] Creatinine [Mass/Vol] 1.17 mg/dL 0.70-1.30 [facility] GFR/1.73 sq M.predicted MDRD (S/P/Bld) [Vol rate/Area] mL/min/{1.73_m2} >=60 [facility] Glucose [Mass/Vol] 229 mg/dL High 74-106 [facility] Natriuretic peptide B (Bld) [Mass/Vol] 686.0 pg/mL <=900.0 [facility] Potassium [Moles/Vol] 2.8 mmol/L Low 3.5-5.1 [facility] Comment on above: RESULTS CALLED TO JEREMY BARROW Protein [Mass/Vol] 7.9 g/dL 6.4-8.2 [facility] Sodium [Moles/Vol] 133 mmol/L Low 136-145 [facility] Urea nitrogen [Mass/Vol] 17.0 mg/dL 7.0-18.0 [facility] Urea nitrogen/Creatinine [Mass ratio] 14.5 mg/mg [facility] Laboratory - Hematology and Cell countson 10-30-2023 Immature granulocytes/100 WBC (Bld) 0.4 % 0.0-0.5 [facility] - Microbiology an d Antimicrobial susceptibilityon 10-30-2023 SARS-CoV-2 (COVID-19) RNA EMMY+probe Ql (Unsp spec) Negative NEGATIVE [facility] Comment on above: This test has not [...] Auto (Bld) [#/Vol] 9.0 10 3/uL 4.0-11.0 [facility] Lymphocytes Auto (Bld) [#/Vo l]on 10-30-2023 Lymphocytes (Bld) [#/Vol] 1.3 10 3/uL 1.2-3.8 [facility] Lymphocytes/100 WBC Auto (Bl d)on 10-30-2023 Lymphocytes/100 WBC (Bld) 15.0 % Low 20.5-60.0 [facility] MCH Auto (RBC) [Entitic mass ]on 10-30-2023 MCH (RBC) [Entitic mass] 30.0 pg 25.9-34.0 [facility] MCHC Auto (RBC) [Mass/Vol]on 10-30-2023 MCHC (RBC) [Mass/Vol] 35.1 g/dL 29.9-35.2 [facility] MCV Auto (RBC) [Entitic vol] on 10-30-2023 MCV (RBC) [Entitic vol] 85.5 fL 80.0-94.0 [facility] Monocytes Auto (Bld) [#/Vol] on 10-30-2023 Monocytes (Bld) [#/Vol] 0.5 10 3/uL 0.3-0.8 [facility] [facility] Mon[facility]/100 WBC Auto (Bld) on 10-30-2023 Monocytes/100 WBC (Bld) 5.4 % 1.7-12.0 [facility] Neutrophils Auto (Bld) [#/Vo l]on 10-30-2023 Neutrophils (Bld) [#/Vol] 7.0 10 3/uL High 1.4-6.5 [facility] Neutrophils/100 WBC Auto (Bl d)on 10-30-2023 Neutrophils/100 WBC (Bld) 78.6 % High 43.0-75.0 [facility] No Panel InformationOrdered By: Nilam Farley on 10-30-2023 Blood Culture 2 [facility] Blood Culture 1 [facility] No Panel Informationon 10-29 Venous Blood Partial Pressure CO2 25.6 mm[Hg] Low 40.0-52.0 [facility] Venous Blood pH 7.482 High 7.330-7.430 [facility] Eosinophils # (Auto) 0.0 10 3/uL 0.0-0.7 [facility] Immature Granulocyte # (Auto) 0.04 10 3/uL High 0.00-0.03 [facility] Troponin I High Sensitivity 61.8 pg/mL 4.0-76.1 [facility] Comment on above: CUT-OFF POINTS HAVE BEEN [...] volume (Bld) [Entitic vol] 9.9 fL 9.5-13.5 [facility] Platelets Auto (Bld) [#/Vol] on 10-30-2023 Platelets (Bld) [#/Vol] 253 10 3/uL 150-450 [facility] RBC Auto (Bld) [#/Vol]on RBC (Bld) [#/Vol] 5.80 10 6/uL 4.70-6.10 [facility] Serum or plasma albumin/glob ulin mass ratioon 10-30-2023 Albumin/Globulin [Mass ratio] 0.8 {ratio} [facility] Serum or plasma anion gap de terminationon 10-30-2023 Anion gap [Moles/Vol] 17.3 mmol/L [facility] Serum procalcitonin measurem enton 10-30-2023 Procalcitonin [Mass/Vol] ng/mL 0.00-0.50 [facility] Basophils Auto (Bld) [#/Vol] on 10-26-2023 Basophils (Bld) [#/Vol] 0.1 10 3/uL 0.0-0.1 [facility] Basophils/100 WBC Auto (Bld) on 10-26-2023 Basophils/100 WBC (Bld) 1.0 % 0.2-2.0 [facility] Eosinophils/100 WBC Auto (Bl d)on 10-26-2023 Eosinophils/100 WBC (Bld) 0.1 % Low 0.9-7.0 [facility] Erythrocyte distribution wid th Auto (RBC) [Ratio]on 10-26-2023 Erythrocyte distribution width (RBC) [Ratio] 13.7 % 11.0-15.0 [facility] Estimated glomerular filtrat ion rate (GFR) non- Americanon 10-26-2023 GFR/1.73 sq M.predicted among non-blacks MDRD (S/P/Bld) [Vol rate/Area] 55 mL/min/{1.73_m2} Low >=60 [facility] Globulin Calc (S) [Mass/Vol] on 10-26-2023 Globulin (S) [Mass/Vol] 4.8 g/dL [facility] Hematocrit Auto (Bld) [Volum e fraction]on 10-26-2023 Hematocrit (Bld) [Volume fraction] 51.8 % 42.0-54.0 [facility] Hemoglobin [Mass/volume] in Bloodon 10-26-2023 Hemoglobin (Bld) [Mass/Vol] 17.5 g/dL 14.0-18.0 [facility] Laboratory - Chemistry and C hemistry - challengeon 10-26-2023 Albumin [Mass/Vol] 3.9 g/dL 3.4-5.0 [facility] ALP [Catalytic activity/Vol] 140 U/L High 46-116 [facility] ALT [Catalytic activity/Vol] 17 U/L 16-63 [facility] AST [Catalytic activity/Vol] 19 U/L 15-37 [facility] Bilirubin [Mass/Vol] 0.7 mg/dL 0.2-1.0 [facility] Calcium [Mass/Vol] 9.0 mg/dL 8.5-10.1 [facility] Chloride [Moles/Vol] 100 mmol/L 98-107 [facility] CO2 [Moles/Vol] 22.3 mmol/L 21.0-32.0 [facility] Creatinine [Mass/Vol] 1.31 mg/dL High 0.70-1.30 [facility] GFR/1.73 sq M.predicted MDRD (S/P/Bld) [Vol rate/Area] mL/min/{1.73_m2} >=60 [facility] Glucose [Mass/Vol] 192 mg/dL High 74-106 [facility] Natriuretic peptide B (Bld) [Mass/Vol] 273.0 pg/mL <=900.0 [facility] Potassium [Moles/Vol] 3.1 mmol/L Low 3.5-5.1 [facility] Protein [Mass/Vol] 8.7 g/dL High 6.4-8.2 [facility] Sodium [Moles/Vol] 136 mmol/L 136-145 [facility] Urea nitrogen [Mass/Vol] 24.0 mg/dL High 7.0-18.0 [facility] Urea nitrogen/Creatinine [Mass ratio] 18.3 mg/mg [facility] Laboratory - Hematology and Cell countson 10-26-2023 Immature granulocytes/100 WBC (Bld) 0.2 % 0.0-0.5 [facility] Leukocytes [#/volume] correc adalberto for nucleated erythrocytes in Blood by Automated counon 10-26-2023 WBC corrected for nucl RBC Auto (Bld) [#/Vol] 8.1 10 3/uL 4.0-11.0 [facility] Lymphocytes Auto (Bld) [#/Vo l]on 10-26-2023 Lymphocytes (Bld) [#/Vol] 1.2 10 3/uL 1.2-3.8 [facility] Lymphocytes/100 WBC Auto (Bl d)on 10-26-2023 Lymphocytes/100 WBC (Bld) 14.4 % Low 20.5-60.0 [facility] MCH Auto (RBC) [Entitic mass ]on 10-26-2023 MCH (RBC) [Entitic mass] 30.0 pg 25.9-34.0 [facility] MCHC Auto (RBC) [Mass/Vol]on 10-26-2023 MCHC (RBC) [Mass/Vol] 33.8 g/dL 29.9-35.2 [facility] MCV Auto (RBC) [Entitic vol] on 10-26-2023 MCV (RBC) [Entitic vol] 88.9 fL 80.0-94.0 [facility] Monocytes Auto (Bld) [#/Vol] on 10-26-2023 Monocytes (Bld) [#/Vol] 0.4 10 3/uL 0.3-0.8 [facility] Monocytes/100 WBC Auto (Bld) on 10-26-2023 Monocytes/100 WBC (Bld) 4.5 % 1.7-12.0 [facility] Neutrophils Auto (Bld) [#/Vo l]on 10-26-2023 Neutrophils (Bld) [#/Vol] 6.5 10 3/uL 1.4-6.5 [facility] Neutrophils/100 WBC Auto (Bl d)on 10-26-2023 Neutrophils/100 WBC (Bld) 79.8 % High 43.0-75.0 [facility] No Panel Informationon 10-25 Eosinophils # (Auto) 0.0 10 3/uL 0.0-0.7 [facility] Immature Granulocyte # (Auto) 0.02 10 3/uL 0.00-0.03 [facility] Troponin I High Sensitivity 59.2 pg/mL 4.0-76.1 [facility] Comment on above: CUT-OFF POINTS HAVE BEEN [...] volume (Bld) [Entitic vol] 10.0 fL 9.5-13.5 [facility] Platelets Auto (Bld) [#/Vol] on 10-26-2023 Platelets (Bld) [#/Vol] 227 10 3/uL 150-450 [facility] RBC Auto (Bld) [#/Vol]on RBC (Bld) [#/Vol] 5.83 10 6/uL 4.70-6.10 [facility] Serum or plasma albumin/glob ulin mass ratioon 10-26-2023 Albumin/Globulin [Mass ratio] 0.8 {ratio} [facility] Serum or plasma anion gap de terminationon 10-26-2023 Anion gap [Moles/Vol] 16.8 mmol/L [facility] CT cervical spine wo conon 0 10-17-2023 CT cervical spine wo con [facility] [place] [address] CT Scan Report Signed Patient: Velia Bagley MR#: [id number] 67 : 1960 Acct:[id number] Age/Sex: 63 / M ADM Date: 10/16/23 Loc: ER Room: Type: [facility] ER Attending Dr: Copies to: Karthik Mcknight [...] Jayant Gonzalez M.D.10/17/2023 7:33 AM Dictation Location: [place] [address] Transcribed By: [facility] 10/17/23 0733 Dictated By: Jayant Gonzalez DO 10/17/23 0732 Signed By: 10/17/23 0733 Normal [facility] CT head/brain wo conon 10-16 CT head/brain wo con [facility] Main [place] [address] [place] [address] CT Scan Report Signed Patient: Velia Bagley MR#: [id number] 67 : 1960 Acct:[id number] Age/Sex: 63 / M ADM Date: 10/16/23 Loc: ER Room: Type: [facility] ER Attending Dr: Copies to: Karthik Mcknight [...] Jayant Gonzalez M.D.10/17/2023 7:32 AM Dictation Location: [facility] Transcribed By: [facility] 10/17/23 0732 Dictated By: Jayant Gonzalez DO 10/17/23 0730 Signed By: 10/17/23 0732 Normal [facility] CT lumbar spine wo conon CT lumbar spine wo con [facility] 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 Lower thoracic level: Unremarkable [id number] multilevel degeneration. Bilateral L5 pars defects. Assessment of disc herniation limited with CT examination. No obvious disc herniation seen with CT exam. CT/CT lumbar spine wo con IMPRESSION:No acute fracture. Impression dictated by: Jayant Gonzalez M.D.10/17/2023 7:36 AM Dictation Location: [place] Transcribed By: [facility] 10/17/23 0736 Dictated By: Jayant Gonzalez DO 10/17/23 0735 Signed By: 10/17/23 0736 Normal [facility] CT thoracic spine wo conon 0 10-17-2023 CT thoracic spine wo con [facility] Main [address] [address] [address] Scan Report Signed Patient: Velia Bagley MR#: [id number] 67 : 1960 Acct:[id number] Age/Sex: 63 / M ADM Date: 10/16/23 Loc: ER Room: Type: [facility] ER Attending Dr: Copies to: Karthik Mcknight [...] Jayant Gonzalez M.D.10/17/2023 7:35 AM Dictation Location: [place] [address] Transcribed By: [facility] 10/17/23 0735 Dictated By: Jayant Gonzalez DO 10/17/23 0733 Signed By: 10/17/23 0735 Normal [facility] ECG 12 lead ECGon 10-16-2023 ECG 12 lead ECG [facility] Main [address] [address] Electrocardiograph Report Signed Patient: Velia Bagley MR#: [id number] 67 : 1960 Acct:[id number] Age/Sex: 63 / M ADM Date: 10/16/23 Loc: ER Room: Type: [facility] ER Attending Dr: Ordering Provider: Karthik Mcknight [...] ventricular hypertrophy Confirmed by Karthik Dykes DO ([id number]) on 10/17/2023 6:48:24 AM Referred By: Electronically Signed By:Karthik Dykes DO Transcribed By: [facility] Signed By Karthik Dykes DO [id number] Normal [facility] Head/Face/Jaw Botulinum Inje ctionon 10-12-2023 [...] and call on the next business day. [facility] Work Phone: [facility] Work Phone: Laboratory - Chemistry and C hemistry - challengeon 09-15-2023 Free T4 [Mass/Vol] 0.96 ng/dL 0.76-1.46 [facility] TSH Qn 1.494 m[IU]/L 0.358-3.740 [facility] Laboratory - Hematology and Cell countson 09-15-2023 ESR (Bld) [Velocity] 11 mm/h <=20 [facility] No Panel Informationon 09-14 C-Reactive Protein, Quantitative <0.50 mg/dL <=0.50 [facility] Serum nuclear antibody titer on 09-15-2023 Nuclear Ab (S) [Titer] Negative . [facility] Comment on above: Negative <1:80 Borde rline 1:80 Positive >1:80ICAP nomenclature: AC-0For more information about Hep-2 cell patterns useANApatterns.org, the official website for theInternational Consensus on Antinuclear Antibody (MIRNA)Patterns (ICAP).Performed at: - [place] [id number] Director: Wilfredo Lee PhD, Phone: [phone] Basophils Auto (Bld) [#/Vol] on 09-14-2023 Basophils (Bld) [#/Vol] 0.0 10 3/uL 0.0-0.1 [facility] Basophils/100 WBC Auto (Bld) on 09-14-2023 Basophils/100 WBC (Bld) 0.4 % 0.2-2.0 [facility] Eosinophils/100 WBC Auto (Bl d)on 09-14-2023 Eosinophils/100 WBC (Bld) 0.0 % Low 0.9-7.0 [facility] Erythrocyte distribution wid th Auto (RBC) [Ratio]on 09-14-2023 Erythrocyte distribution width (RBC) [Ratio] 13.2 % 11.0-15.0 [facility] Estimated glomerular filtrat ion rate (GFR) non- Americanon 09-14-2023 GFR/1.73 sq M.predicted among non-blacks MDRD (S/P/Bld) [Vol rate/Area] mL/min/{1.73_m2} >=60 [facility] Hematocrit Auto (Bld) [Volum e fraction]on 09-14-2023 Hematocrit (Bld) [Volume fraction] 45.0 % 42.0-54.0 [facility] Hemoglobin [Mass/volume] in Bloodon 09-14-2023 Hemoglobin (Bld) [Mass/Vol] 14.6 g/dL 14.0-18.0 [facility] Laboratory - Chemistry and C hemistry - challengeon 09-14-2023 Calcium [Mass/Vol] 8.6 mg/dL 8.5-10.1 [facility] Chloride [Moles/Vol] 104 mmol/L 98-107 [facility] CO2 [Moles/Vol] 20.6 mmol/L Low 21.0-32.0 [facility] Creatinine [Mass/Vol] 1.18 mg/dL 0.70-1.30 [facility] GFR/1.73 sq M.predicted MDRD (S/P/Bld) [Vol rate/Area] mL/min/{1.73_m2} >=60 [facility] Glucose [Mass/Vol] 95 mg/dL 74-106 [facility] Potassium [Moles/Vol] 4.0 mmol/L 3.5-5.1 [facility] Sodium [Moles/Vol] 133 mmol/L Low 136-145 [facility] Urea nitrogen [Mass/Vol] 25.0 mg/dL High 7.0-18.0 [facility] Urea nitrogen/Creatinine [Mass ratio] 21.2 mg/mg [facility] Laboratory - Hematology and Cell countson 09-14-2023 Immature granulocytes/100 WBC (Bld) 0.4 % 0.0-0.5 [facility] Leukocytes [#/volume] correc adalberto for nucleated erythrocytes in Blood by Automated counon 09-14-2023 WBC corrected for nucl RBC Auto (Bld) [#/Vol] 5.7 10 3/uL 4.0-11.0 [facility] Lymphocytes Auto (Bld) [#/Vo l]on 09-14-2023 Lymphocytes (Bld) [#/Vol] 1.8 10 3/uL 1.2-3.8 [facility] Lymphocytes/100 WBC Auto (Bl d)on 09-14-2023 Lymphocytes/100 WBC (Bld) 31.6 % 20.5-60.0 [facility] MCH Auto (RBC) [Entitic mass ]on 09-14-2023 MCH (RBC) [Entitic mass] 30.6 pg 25.9-34.0 [facility] MCHC Auto (RBC) [Mass/Vol]on 09-14-2023 MCHC (RBC) [Mass/Vol] 32.4 g/dL 29.9-35.2 [facility] MCV Auto (RBC) [Entitic vol] on 09-14-2023 MCV (RBC) [Entitic vol] 94.3 fL High 80.0-94.0 [facility] Monocytes Auto (Bld) [#/Vol] on 09-14-2023 Monocytes (Bld) [#/Vol] 0.4 10 3/uL 0.3-0.8 [facility] Monocytes/100 WBC Auto (Bld) on 09-14-2023 Monocytes/100 WBC (Bld) 7.2 % 1.7-12.0 [facility] Neutrophils Auto (Bld) [#/Vo l]on 09-14-2023 Neutrophils (Bld) [#/Vol] 3.4 10 3/uL 1.4-6.5 [facility] Neutrophils/100 WBC Auto (Bl d)on 09-14-2023 Neutrophils/100 WBC (Bld) 60.4 % 43.0-75.0 [facility] No Panel Informationon 09-13 Eosinophils # (Auto) 0.0 10 3/uL 0.0-0.7 [facility] Immature Granulocyte # (Auto) 0.02 10 3/uL 0.00-0.03 [facility] Platelet mean volume Auto (B ld) [Entitic vol]on 09-14-2023 Platelet mean volume (Bld) [Entitic vol] 9.4 fL Low 9.5-13.5 [facility] Platelets Auto (Bld) [#/Vol] on 09-14-2023 Platelets (Bld) [#/Vol] 207 10 3/uL 150-450 [facility] RBC Auto (Bld) [#/Vol]on RBC (Bld) [#/Vol] 4.77 10 6/uL 4.70-6.10 [facility] Serum or plasma anion gap de terminationon 09-14-2023 Anion gap [Moles/Vol] 12.4 mmol/L Fi [facility] Basophils Auto (Bld) [#/Vol] Ordered By: Melissa Wilson on 09-01-2023 Basophils (Bld) [#/Vol] 0.0 10*3/uL 0.0-0.2 [facility] Basophils/100 WBC Auto (Bld) Ordered By: Melissa Wilson on 09-01-2023 Basophils/100 WBC (Bld) 0.3 % . [facility] Eosinophils Auto (Bld) [#/Vo l]Ordered By: Melissa Wilson on 09-01-2023 Eosinophils (Bld) [#/Vol] 0.0 10*3/uL 0.0-0.45 [facility] Eosinophils/100 WBC Auto (Bl d)Ordered By: Melissa Wilson on 09-01-2023 Eosinophils/100 WBC (Bld) 0.0 % . [facility] Erythrocyte distribution wid th Auto (RBC) [Ratio]Ordered By: Melissa Wilson on 09-01-2023 Erythrocyte distribution width (RBC) [Ratio] 13.7 % 12.0-14.8 [facility] Ferritin [Mass/volume] in Se rum or PlasmaOrdered By: Melissa Wilson on 09-01-2023 Ferritin [Mass/Vol] 39.7 ng/mL 23.9-336.2 [facility] Folate [Mass/volume] in Seru m or PlasmaOrdered By: Melissa Wilson on 09-01-2023 Folate [Mass/Vol] 10.7 ng/mL >5.9 [facility] Comment on above: Folate reference ran ge: >5.9 ng/mlThe WHO technical consultation on folate and vitamin [id number] has determined that folate concentrations lessthan 4 ng/ml are considered deficient. Folate [Mass/Vol] Folate [Mass/volume] in Serum or Plasma >5.9 [facility] Comment on above: Folate reference ran ge: >5.9 ng/mlThe WHO technical consultation on folate and vitamin [id number] has determined that folate concentrations lessthan 4 ng/ml are considered deficient. Hematocrit Auto (Bld) [Volum e fraction]Ordered By: Melissa Wilson on 09-01-2023 Hematocrit (Bld) [Volume fraction] 42.7 % 38.8-50.0 [facility] Hemoglobin [Mass/volume] in BloodOrdered By: Melissa Wilson on 09-01-2023 Hemoglobin (Bld) [Mass/Vol] 14.2 g/dL 13.0-17.0 [facility] Iron [Mass/volume] in Serum or PlasmaOrdered By: Melissa Wilson on 09-01-2023 Iron [Mass/Vol] 166 ug/dL 50-212 [facility] Iron binding capacity [Mass/ volume] in Serum or PlasmaOrdered By: Melissa Wilson on 09-01-2023 Iron binding capacity [Mass/Vol] 312 ug/dL 255-450 [facility] Iron saturation [Mass Fracti on] in Serum or PlasmaOrdered By: Melissa Wilson on 09-01-2023 Iron saturation [Mass fraction] 53.2 % High 20-50 [facility] Leukocytes [#/volume] correc adalberto for nucleated erythrocytes in Blood by Automated counOrdered By: Melissa Wilson on 09-01-2023 WBC corrected for nucl RBC Auto (Bld) [#/Vol] 6.4 10*3/uL 4.1-10.5 [facility] Lymphocytes Auto (Bld) [#/Vo l]Ordered By: Melissa Wilson on 09-01-2023 Lymphocytes (Bld) [#/Vol] 1.7 10*3/uL 1.00-4.8 [facility] Lymphocytes/100 WBC Auto (Bl d)Ordered By: Melissa Wilson on 09-01-2023 Lymphocytes/100 WBC (Bld) 27.0 % . [facility] MCH Auto (RBC) [Entitic mass ]Ordered By: Melissa Wilson on 09-01-2023 MCH (RBC) [Entitic mass] 31.2 pg 27.5-35.2 [facility] MCHC Auto (RBC) [Mass/Vol]Or dered By: Melissa Wilson on 09-01-2023 MCHC (RBC) [Mass/Vol] 33.4 g/dL 32.5-35.6 [facility] MCV Auto (RBC) [Entitic vol] Ordered By: Melissa Wilson on 09-01-2023 MCV (RBC) [Entitic vol] 93.4 fL 83.5-101 [facility] Monocytes Auto (Bld) [#/Vol] Ordered By: Melissa Wilson on 09-01-2023 Monocytes (Bld) [#/Vol] 0.4 10*3/uL 0.0-0.8 [facility] Monocytes/100 WBC Auto (Bld) Ordered By: Melissa Wilson on 09-01-2023 Monocytes/100 WBC (Bld) 5.6 % . [facility] Neutrophils Auto (Bld) [#/Vo l]Ordered By: Melissa Wilson on 09-01-2023 Neutrophils (Bld) [#/Vol] 4.3 10*3/uL 1.8-7.7 [facility] Neutrophils/100 WBC Auto (Bl d)Ordered By: Melissa Wilson on 09-01-2023 Neutrophils/100 WBC (Bld) 67.1 % . [facility] Nucleated erythrocytes [Pres ence] in Blood by Automated countOrdered By: Melissa Wilson on 09-01-2023 Nucleated RBC Auto Ql (Bld) 0.1 /100{WBC} 0-0.5 [facility] Platelet mean volume Auto (B ld) [Entitic vol]Ordered By: Melissa Wilson on 09-01-2023 Platelet mean volume (Bld) [Entitic vol] 7.5 fL 6.6-10.1 [facility] Platelets Auto (Bld) [#/Vol] Ordered By: Melissa Wilson on 09-01-2023 Platelets (Bld) [#/Vol] 172 10*3/uL 150-450 [facility] RBC Auto (Bld) [#/Vol]Ordere d By: Melissa Wilson on 09-01-2023 RBC (Bld) [#/Vol] 4.57 10*6/uL 3.90-5.60 [facility] Transferrin [Mass/volume] in Serum or PlasmaOrdered By: Melissa Steve on 09-01-2023 Transferrin [Mass/Vol] 223 mg/dL 203-362 [facility] Vitamin B12 ser/plasOrdered By: Melissa Steve on 09-01-2023 Cobalamin (Vitamin B12) [Mass/Vol] 580 pg/mL 180-914 [facility] Cobalamin (Vitamin B12) [Mass/Vol] Vitamin B12 ser/plas 180-914 [facility] WBC Auto (Bld) [#/Vol]Ordere d By: Melissa Steve on 09-01-2023 WBC (Bld) [#/Vol] 6.4 10*3/uL 4.1-10.5 [facility] No Panel Informationon 08-27 Prostate Specific Antigen Total 2.57 ng/mL <=4.00 [facility] Estimated glomerular filtrat ion rate (GFR) non- Americanon 08-20-2023 GFR/1.73 sq M.predicted among non-blacks MDRD (S/P/Bld) [Vol rate/Area] mL/min/{1.73_m2} >=60 [facility] Globulin Calc (S) [Mass/Vol] on 08-20-2023 Globulin (S) [Mass/Vol] 3.3 g/dL [facility] IgG [Mass/volume] in Serum o r Plasmaon 08-20-2023 IgG [Mass/Vol] 1123 mg/dL 603-1613 [facility] Comment on above: Performed at: [address] [id number] Director: Wilfredo Lee PhD, Phone: [phone] Laboratory - Chemistry and C hemistry - challengeon 08-20-2023 Albumin [Mass/Vol] 3.6 g/dL 3.4-5.0 [facility] ALP [Catalytic activity/Vol] 111 U/L 46-116 [facility] ALT [Catalytic activity/Vol] 8 U/L Low 16-63 [facility] AST [Catalytic activity/Vol] 8 U/L Low 15-37 [facility] Bilirubin [Mass/Vol] 0.3 mg/dL 0.2-1.0 [facility] Calcium [Mass/Vol] 8.8 mg/dL 8.5-10.1 [facility] Chloride [Moles/Vol] 107 mmol/L 98-107 [facility] CO2 [Moles/Vol] 20.8 mmol/L Low 21.0-32.0 [facility] Creatinine [Mass/Vol] 1.12 mg/dL 0.70-1.30 [facility] GFR/1.73 sq M.predicted MDRD (S/P/Bld) [Vol rate/Area] mL/min/{1.73_m2} >=60 [facility] Glucose [Mass/Vol] 97 mg/dL 74-106 [facility] Potassium [Moles/Vol] 3.7 mmol/L 3.5-5.1 [facility] Protein [Mass/Vol] 6.9 g/dL 6.4-8.2 [facility] Sodium [Moles/Vol] 139 mmol/L 136-145 [facility] Urea nitrogen [Mass/Vol] 23.0 mg/dL High 7.0-18.0 [facility] Urea nitrogen/Creatinine [Mass ratio] 20.5 mg/mg [facility] Serum or plasma albumin/glob ulin mass ratioon 08-20-2023 Albumin/Globulin [Mass ratio] 1.1 {ratio} [facility] Serum or plasma anion gap de terminationon 08-20-2023 Anion gap [Moles/Vol] 14.9 mmol/L [facility] Basophils Auto (Bld) [#/Vol] on 07-28-2023 Basophils (Bld) [#/Vol] 0.0 10 3/uL 0.0-0.1 [facility] Basophils/100 WBC Auto (Bld) on 07-28-2023 Basophils/100 WBC (Bld) 0.3 % 0.2-2.0 [facility] Eosinophils/100 WBC Auto (Bl d)on 07-28-2023 Eosinophils/100 WBC (Bld) 0.2 % 0.9-7.0 [facility] Erythrocyte distribution wid th Auto (RBC) [Ratio]on 07-28-2023 Erythrocyte distribution width (RBC) [Ratio] 13.6 % 11.0-15.0 [facility] Estimated glomerular filtrat ion rate (GFR) non- Americanon 07-28-2023 GFR/1.73 sq M.predicted among non-blacks MDRD (S/P/Bld) [Vol rate/Area] mL/min/{1.73_m2} >=60 [facility] Hematocrit Auto (Bld) [Volum e fraction]on 07-28-2023 Hematocrit (Bld) [Volume fraction] 43.5 % 42.0-54.0 [facility] Hemoglobin [Mass/volume] in Bloodon 07-28-2023 Hemoglobin (Bld) [Mass/Vol] 14.3 g/dL 14.0-18.0 [facility] Laboratory - Chemistry and C hemistry - challengeon 07-28-2023 Calcium [Mass/Vol] 8.4 mg/dL 8.5-10.1 [facility] Chloride [Moles/Vol] 103 mmol/L 98-107 [facility] CO2 [Moles/Vol] 24.8 mmol/L 21.0-32.0 [facility] Creatinine [Mass/Vol] 1.11 mg/dL 0.70-1.30 [facility] GFR/1.73 sq M.predicted MDRD (S/P/Bld) [Vol rate/Area] mL/min/{1.73_m2} >=60 [facility] Glucose [Mass/Vol] 79 mg/dL 74-106 [facility] Potassium [Moles/Vol] 3.8 mmol/L 3.5-5.1 [facility] Sodium [Moles/Vol] 136 mmol/L 136-145 [facility] Urea nitrogen [Mass/Vol] 20.0 mg/dL 7.0-18.0 [facility] Urea nitrogen/Creatinine [Mass ratio] 18.0 mg/mg [facility] Laboratory - Hematology and Cell countson 07-28-2023 Immature granulocytes/100 WBC (Bld) 0.5 % 0.0-0.5 [facility] Leukocytes [#/volume] correc adalberto for nucleated erythrocytes in Blood by Automated counon 07-28-2023 WBC corrected for nucl RBC Auto (Bld) [#/Vol] 6.6 10 3/uL 4.0-11.0 [facility] Lymphocytes Auto (Bld) [#/Vo l]on 07-28-2023 Lymphocytes (Bld) [#/Vol] 1.7 10 3/uL 1.2-3.8 [facility] Lymphocytes/100 WBC Auto (Bl d)on 07-28-2023 Lymphocytes/100 WBC (Bld) 26.1 % 20.5-60.0 [facility] MCH Auto (RBC) [Entitic mass ]on 07-28-2023 MCH (RBC) [Entitic mass] 30.8 pg 25.9-34.0 [facility] MCHC Auto (RBC) [Mass/Vol]on 07-28-2023 MCHC (RBC) [Mass/Vol] 32.9 g/dL 29.9-35.2 [facility] MCV Auto (RBC) [Entitic vol] on 07-28-2023 MCV (RBC) [Entitic vol] 93.5 fL 80.0-94.0 [facility] Monocytes Auto (Bld) [#/Vol] on 07-28-2023 Monocytes (Bld) [#/Vol] 0.5 10 3/uL 0.3-0.8 [facility] Monocytes/100 WBC Auto (Bld) on 07-28-2023 Monocytes/100 WBC (Bld) 6.8 % 1.7-12.0 [facility] Neutrophils Auto (Bld) [#/Vo l]on 07-28-2023 Neutrophils (Bld) [#/Vol] 4.4 10 3/uL 1.4-6.5 [facility] Neutrophils/100 WBC Auto (Bl d)on 07-28-2023 Neutrophils/100 WBC (Bld) 66.1 % 43.0-75.0 [facility] No Panel Informationon 07-27 Eosinophils # (Auto) 0.0 10 3/uL 0.0-0.7 [facility] Immature Granulocyte # (Auto) 0.03 10 3/uL 0.00-0.03 [facility] Platelet mean volume Auto (B ld) [Entitic vol]on 07-28-2023 Platelet mean volume (Bld) [Entitic vol] 9.8 fL 9.5-13.5 [facility] Platelets Auto (Bld) [#/Vol] on 07-28-2023 Platelets (Bld) [#/Vol] 189 10 3/uL 150-450 [facility] RBC Auto (Bld) [#/Vol]on RBC (Bld) [#/Vol] 4.65 10 6/uL 4.70-6.10 [facility] Serum or plasma anion gap de terminationon 07-28-2023 Anion gap [Moles/Vol] 12.0 mmol/L [facility] Head/Face/Jaw Botulinum Inje ctionon 07-15-2023 Jodie Matthews [...] and call on the next business day. [facility] Work Phone: [facility] Work Phone: Estimated glomerular filtrat ion rate (GFR) non- Americanon 07-02-2023 GFR/1.73 sq M.predicted among non-blacks MDRD (S/P/Bld) [Vol rate/Area] mL/min/{1.73_m2} >=60 [facility] Laboratory - Chemistry and C hemistry - challengeon 07-02-2023 Calcium [Mass/Vol] 8.3 mg/dL 8.5-10.1 [facility] Chloride [Moles/Vol] 104 mmol/L 98-107 [facility] CO2 [Moles/Vol] 25.5 mmol/L 21.0-32.0 [facility] Creatinine [Mass/Vol] 1.15 mg/dL 0.70-1.30 [facility] GFR/1.73 sq M.predicted MDRD (S/P/Bld) [Vol rate/Area] mL/min/{1.73_m2} >=60 [facility] Glucose [Mass/Vol] 76 mg/dL 74-106 [facility] Potassium [Moles/Vol] 4.1 mmol/L 3.5-5.1 [facility] Sodium [Moles/Vol] 136 mmol/L 136-145 [facility] Urea nitrogen [Mass/Vol] 21.0 mg/dL 7.0-18.0 [facility] Urea nitrogen/Creatinine [Mass ratio] 18.3 mg/mg [facility] Serum or plasma anion gap de terminationon 07-02-2023 Anion gap [Moles/Vol] 10.6 mmol/L [facility] Reference Laboratory Testing Ordered By: Giovanna Donnelly on 06-05-2023 Test Name toxassure 23 Invalid Interpretation Code [facility] SendOutsSS Alanine aminotransferase [En zymatic activity/volume] in Serum or PlasmaOrdered By: Melissa Wilson on 05-15-2023 ALT [Catalytic activity/Vol] 8 U/L 7-52 [facility] Albumin [Mass/volume] in Ser um or Plasma by Bromocresol green (BCG) dye binding methoOrdered By: Melissa Wilson on 05-15-2023 Albumin BCG dye [Mass/Vol] 3.9 g/dL 3.5-5.7 [facility] Alkaline phosphatase [Enzyma tic activity/volume] in Serum or PlasmaOrdered By: Melissa Wilson on 05-15-2023 ALP [Catalytic activity/Vol] 85 U/L 34-104 [facility] Aspartate aminotransferase [ Enzymatic activity/volume] in Serum or PlasmaOrdered By: Melissa Wilson on 05-15-2023 AST [Catalytic activity/Vol] 11 U/L Low 13-39 [facility] Basophils Auto (Bld) [#/Vol] Ordered By: Melissa Wilson on 05-15-2023 Basophils (Bld) [#/Vol] 0.0 10*3/uL 0.0-0.2 [facility] Basophils/100 WBC Auto (Bld) Ordered By: Melissa Wilson on 05-15-2023 Basophils/100 WBC (Bld) 0.4 % . [facility] Bilirubin.total [Mass/volume ] in Serum or PlasmaOrdered By: Melissa Wilson on 05-15-2023 Bilirubin [Mass/Vol] 0.4 mg/dL 0.3-1.0 [facility] Calcium [Mass/volume] in Ser um or PlasmaOrdered By: Melissa Wilson on 05-15-2023 Calcium [Mass/Vol] 8.5 mg/dL Low 8.6-10.3 [facility] Carbon dioxide, total [Moles /volume] in Serum or PlasmaOrdered By: Melissa Wilson on 05-15-2023 CO2 [Moles/Vol] 22.9 mmol/L 21.0-31.0 [facility] Chloride [Moles/volume] in S isael or PlasmaOrdered By: Melissa Wilson on 05-15-2023 Chloride [Moles/Vol] 107 mmol/L 98-107 [facility] Creatinine [Mass/volume] in Serum or PlasmaOrdered By: Melissa Wilson on 05-15-2023 Creatinine [Mass/Vol] 1.14 mg/dL 0.70-1.30 [facility] Eosinophils Auto (Bld) [#/Vo l]Ordered By: Melissa Wilson on 05-15-2023 Eosinophils (Bld) [#/Vol] 0.0 10*3/uL 0.0-0.45 [facility] Eosinophils/100 WBC Auto (Bl d)Ordered By: Melissa Wilson on 05-15-2023 Eosinophils/100 WBC (Bld) 0.0 % . [facility] Erythrocyte distribution wid th Auto (RBC) [Ratio]Ordered By: Melissa Wilson on 05-15-2023 Erythrocyte distribution width (RBC) [Ratio] 13.9 % 12.0-14.8 [facility] Ferritin [Mass/volume] in Se rum or PlasmaOrdered By: Melissa Wilson on 05-15-2023 Ferritin [Mass/Vol] 62.6 ng/mL 23.9-336.2 [facility] Globulin Calc (S) [Mass/Vol] Ordered By: Melissa Wilson on 05-15-2023 Globulin (S) [Mass/Vol] 3.5 g/dL [facility] Glucose [Mass/volume] in Ser um or PlasmaOrdered By: Melissa Wilson on 05-15-2023 Glucose [Mass/Vol] 92 mg/dL 70-100 [facility] Comment on above: ADA recommended refe rence rangeRandom Glucose Reference Range is dependent on time and content of last meal. Glucose of more than 200 mg/dL in a nonstressed, ambulatory subject supports the diagnosis of Diabetes Mellitus. Hematocrit Auto (Bld) [Volum e fraction]Ordered By: Melissa Wilson on 05-15-2023 Hematocrit (Bld) [Volume fraction] 45.5 % 38.8-50.0 [facility] Hemoglobin [Mass/volume] in BloodOrdered By: Melissa Wilson on 05-15-2023 Hemoglobin (Bld) [Mass/Vol] 15.7 g/dL 13.0-17.0 [facility] Iron [Mass/volume] in Serum or PlasmaOrdered By: Melissa Wilson on 05-15-2023 Iron [Mass/Vol] 62 ug/dL 50-212 [facility] Iron binding capacity [Mass/ volume] in Serum or PlasmaOrdered By: Melissa Wilson on 05-15-2023 Iron binding capacity [Mass/Vol] 251 ug/dL 255-450 [facility] Iron saturation [Mass Fracti on] in Serum or PlasmaOrdered By: Melissa Wilson on 05-15-2023 Iron saturation [Mass fraction] 24.7 % 20-50 [facility] Leukocytes [#/volume] correc adalberto for nucleated erythrocytes in Blood by Automated counOrdered By: Melissa Wilson on 05-15-2023 WBC corrected for nucl RBC Auto (Bld) [#/Vol] 4.0 10*3/uL 4.1-10.5 [facility] Lymphocytes Auto (Bld) [#/Vo l]Ordered By: Melissa Wilson on 05-15-2023 Lymphocytes (Bld) [#/Vol] 1.3 10*3/uL 1.00-4.8 [facility] Lymphocytes/100 WBC Auto (Bl d)Ordered By: Melissa Wilson on 05-15-2023 Lymphocytes/100 WBC (Bld) 32.5 % . [facility] MCH Auto (RBC) [Entitic mass ]Ordered By: Melissa Wilson on 05-15-2023 MCH (RBC) [Entitic mass] 30.8 pg 27.5-35.2 [facility] MCHC Auto (RBC) [Mass/Vol]Or dered By: Melissa Wilson on 05-15-2023 MCHC (RBC) [Mass/Vol] 34.5 g/dL 32.5-35.6 [facility] MCV Auto (RBC) [Entitic vol] Ordered By: Melissa Wilson on 05-15-2023 MCV (RBC) [Entitic vol] 89.5 fL 83.5-101 [facility] Monocytes Auto (Bld) [#/Vol] Ordered By: Melissa Wilson on 05-15-2023 Monocytes (Bld) [#/Vol] 0.3 10*3/uL 0.0-0.8 [facility] Monocytes/100 WBC Auto (Bld) Ordered By: Melissa Wilson on 05-15-2023 Monocytes/100 WBC (Bld) 8.7 % . [facility] Neutrophils Auto (Bld) [#/Vo l]Ordered By: Melissa Wilson on 05-15-2023 Neutrophils (Bld) [#/Vol] 2.3 10*3/uL 1.8-7.7 [facility] Neutrophils/100 WBC Auto (Bl d)Ordered By: Melissa Wilson on 05-15-2023 Neutrophils/100 WBC (Bld) 58.4 % . [facility] No Panel InformationOrdered By: Melissa Wilson on 05-15-2023 Estimated GFR (CKD-EPI) > 60.0 mL/Min [facility] Creatinine Clearance (Chem 73.16 [facility] Nucleated erythrocytes [Pres ence] in Blood by Automated countOrdered By: Melissa Wilson on 05-15-2023 Nucleated RBC Auto Ql (Bld) 0.3 /100{WBC} 0-0.5 [facility] Platelet mean volume Auto (B ld) [Entitic vol]Ordered By: Melissa Wilson on 05-15-2023 Platelet mean volume (Bld) [Entitic vol] 7.2 fL 6.6-10.1 [facility] Platelets Auto (Bld) [#/Vol] Ordered By: Melissa Wilson on 05-15-2023 Platelets (Bld) [#/Vol] 199 10*3/uL 150-450 [facility] Potassium [Moles/volume] in Serum or PlasmaOrdered By: Melissa Wilson on 05-15-2023 Potassium [Moles/Vol] 3.4 mmol/L Low 3.5-5.1 [facility] Protein [Mass/volume] in Ser um or PlasmaOrdered By: Melissa Wilson on 05-15-2023 Protein [Mass/Vol] 7.4 g/dL 6.4-8.9 [facility] RBC Auto (Bld) [#/Vol]Ordere d By: Melissa Wilson on 05-15-2023 RBC (Bld) [#/Vol] 5.08 10*6/uL 3.90-5.60 [facility] Serum or plasma albumin/glob ulin mass ratioOrdered By: Melissa Steve on 05-15-2023 Albumin/Globulin [Mass ratio] 1.1 {ratio} [facility] Serum or plasma anion gap de terminationOrdered By: Melissa Wilson on 05-15-2023 Anion gap [Moles/Vol] 9.5 mmol/L 6.0-15.0 [facility] Sodium [Moles/volume] in Ser um or PlasmaOrdered By: Melissa Wilson on 05-15-2023 Sodium [Moles/Vol] 136 mmol/L 136-145 [facility] Transferrin [Mass/volume] in Serum or PlasmaOrdered By: Melissa Wilson on 05-15-2023 Transferrin [Mass/Vol] 179 mg/dL 203-362 [facility] Urea nitrogen [Mass/volume] in Serum or PlasmaOrdered By: Melissa Wilson on 05-15-2023 Urea nitrogen [Mass/Vol] 23 mg/dL 7-25 [facility] WBC Auto (Bld) [#/Vol]Ordere d By: Melissa Wilson on 05-15-2023 WBC (Bld) [#/Vol] 4.0 10*3/uL 4.1-10.5 [facility] Head/Face/Jaw Botulinum Inje ctionon 04-15-2023 Jodie Matthews [...] and call on the next business day. [facility] Work Phone: [facility] Work Phone: Alanine aminotransferase [En zymatic activity/volume] in Serum or PlasmaOrdered By: Melissa Wilson on 02-11-2023 ALT [Catalytic activity/Vol] 6 U/L 7-52 [facility] Albumin [Mass/volume] in Ser um or Plasma by Bromocresol green (BCG) dye binding methoOrdered By: Melissa Wilson on 02-11-2023 Albumin BCG dye [Mass/Vol] 4.2 g/dL 3.5-5.7 [facility] Alkaline phosphatase [Enzyma tic activity/volume] in Serum or PlasmaOrdered By: Melissa Wilson on 02-11-2023 ALP [Catalytic activity/Vol] 92 U/L 34-104 [facility] Anisocytosis LM Ql (Bld)Orde red By: Melissa Wilson on 02-11-2023 Anisocytosis Ql (Bld) Moderate [facility] Anisocytosis Ql (Bld) Anisocytosis [Pres ence] in Blood by Light microscopy [facility] Aspartate aminotransferase [ Enzymatic activity/volume] in Serum or PlasmaOrdered By: Melissa Wilson on 02-11-2023 AST [Catalytic activity/Vol] 14 U/L 13-39 [facility] Basophils Auto (Bld) [#/Vol] Ordered By: Melissa Wilson on 02-11-2023 Basophils (Bld) [#/Vol] 0.0 10*3/uL 0.0-0.2 [facility] Basophils/100 WBC Auto (Bld) Ordered By: Melissa Wilson on 02-11-2023 Basophils/100 WBC (Bld) 0.6 % . [facility] Bilirubin.total [Mass/volume ] in Serum or PlasmaOrdered By: Melissa Wilson on 02-11-2023 Bilirubin [Mass/Vol] 0.4 mg/dL 0.3-1.0 [facility] Calcium [Mass/volume] in Ser um or PlasmaOrdered By: Melissa Wilson on 02-11-2023 Calcium [Mass/Vol] 8.6 mg/dL 8.6-10.3 [facility] Carbon dioxide, total [Moles /volume] in Serum or PlasmaOrdered By: Melissa Wilson on 02-11-2023 CO2 [Moles/Vol] 27.1 mmol/L 21.0-31.0 [facility] Chloride [Moles/volume] in S isael or PlasmaOrdered By: Melissa Wilson on 02-11-2023 Chloride [Moles/Vol] 105 mmol/L 98-107 [facility] Creatinine [Mass/volume] in Serum or PlasmaOrdered By: Melissa Wilson on 02-11-2023 Creatinine [Mass/Vol] 1.02 mg/dL 0.70-1.30 [facility] Eosinophils Auto (Bld) [#/Vo l]Ordered By: Melissa Wilson on 02-11-2023 Eosinophils (Bld) [#/Vol] 0.0 10*3/uL 0.0-0.45 [facility] Eosinophils/100 WBC Auto (Bl d)Ordered By: Melissa Wilson on 02-11-2023 Eosinophils/100 WBC (Bld) 0.0 % . [facility] Erythrocyte distribution wid th Auto (RBC) [Ratio]Ordered By: Melissa Wilson on 02-11-2023 Erythrocyte distribution width (RBC) [Ratio] 14.3 % 12.0-14.8 [facility] Ferritin [Mass/volume] in Se rum or PlasmaOrdered By: Melissa Wilson on 02-11-2023 Ferritin [Mass/Vol] 38.3 ng/mL 23.9-336.2 [facility] Globulin Calc (S) [Mass/Vol] Ordered By: Melissa Wilson on 02-11-2023 Globulin (S) [Mass/Vol] 3.1 g/dL [facility] Glucose [Mass/volume] in Ser um or PlasmaOrdered By: Melissa Wilson on 02-11-2023 Glucose [Mass/Vol] 65 mg/dL 70-100 [facility] Comment on above: ADA recommended refe rence rangeRandom Glucose Reference Range is dependent on time and content of last meal. Glucose of more than 200 mg/dL in a nonstressed, ambulatory subject supports the diagnosis of Diabetes Mellitus. Hematocrit Auto (Bld) [Volum e fraction]Ordered By: Melissa Wilson on 02-11-2023 Hematocrit (Bld) [Volume fraction] 46.3 % 38.8-50.0 [facility] Hemoglobin [Mass/volume] in BloodOrdered By: Melissa Wilson on 02-11-2023 Hemoglobin (Bld) [Mass/Vol] 15.7 g/dL 13.0-17.0 [facility] Iron [Mass/volume] in Serum or PlasmaOrdered By: Melissa Wilson on 02-11-2023 Iron [Mass/Vol] 84 ug/dL 50-212 [facility] Iron binding capacity [Mass/ volume] in Serum or PlasmaOrdered By: Melissa Wilson on 02-11-2023 Iron binding capacity [Mass/Vol] 305 ug/dL 255-450 [facility] Iron saturation [Mass Fracti on] in Serum or PlasmaOrdered By: Melissa Wilson on 02-11-2023 Iron saturation [Mass fraction] 27.5 % 20-50 [facility] Leukocytes [#/volume] correc adalberto for nucleated erythrocytes in Blood by Automated counOrdered By: Melissa Wilson on 02-11-2023 WBC corrected for nucl RBC Auto (Bld) [#/Vol] 4.7 10*3/uL 4.1-10.5 [facility] Lymphocytes Auto (Bld) [#/Vo l]Ordered By: Melissa Wilson on 02-11-2023 Lymphocytes (Bld) [#/Vol] 1.8 10*3/uL 1.00-4.8 [facility] Lymphocytes/100 WBC Auto (Bl d)Ordered By: Melissa Wilson on 02-11-2023 Lymphocytes/100 WBC (Bld) 37.4 % . [facility] MCH Auto (RBC) [Entitic mass ]Ordered By: Melissa Wilson on 02-11-2023 MCH (RBC) [Entitic mass] 30.7 pg 27.5-35.2 [facility] MCHC Auto (RBC) [Mass/Vol]Or dered By: Melissa Wilson on 02-11-2023 MCHC (RBC) [Mass/Vol] 34.0 g/dL 32.5-35.6 [facility] MCV Auto (RBC) [Entitic vol] Ordered By: Melissa Wilson on 02-11-2023 MCV (RBC) [Entitic vol] 90.3 fL 83.5-101 [facility] Microcytes LM Ql (Bld)Ordere d By: Melissa Wilson on 02-11-2023 Microcytes Ql (Bld) Moderate [facility] Microcytes Ql (Bld) Microcytes [Presence ] in Blood by Light microscopy [facility] Monocytes Auto (Bld) [#/Vol] Ordered By: Melissa Wilson on 02-11-2023 Monocytes (Bld) [#/Vol] 0.3 10*3/uL 0.0-0.8 [facility] Monocytes/100 WBC Auto (Bld) Ordered By: Melissa Wilson on 02-11-2023 Monocytes/100 WBC (Bld) 6.3 % . [facility] Neutrophils Auto (Bld) [#/Vo l]Ordered By: Melissa Wilson on 02-11-2023 Neutrophils (Bld) [#/Vol] 2.6 10*3/uL 1.8-7.7 [facility] Neutrophils/100 WBC Auto (Bl d)Ordered By: Melissa Wilson on 02-11-2023 Neutrophils/100 WBC (Bld) 55.7 % . [facility] No Panel InformationOrdered By: Melissa Wilson on 02-11-2023 Estimated GFR (CKD-EPI) > 60.0 mL/Min [facility] Creatinine Clearance (Chem 82.40 [facility] Nucleated erythrocytes [Pres ence] in Blood by Automated countOrdered By: Melissa Wilson on 02-11-2023 Nucleated RBC Auto Ql (Bld) 0.2 /100{WBC} 0-0.5 [facility] Platelet adequacy [Presence] in Blood by Light microscopyOrdered By: Melissa Wilson on 02-11-2023 Platelets LM Ql (Bld) Normal Normal [facility] Platelets LM Ql (Bld) Platelet adequacy [Presence] in Blood by Light microscopy Normal [facility] Platelet mean volume Auto (B ld) [Entitic vol]Ordered By: Melissa Wilson on 02-11-2023 Platelet mean volume (Bld) [Entitic vol] 8.0 fL 6.6-10.1 [facility] Platelet morphology finding [Identifier] in BloodOrdered By: Melissa Wilson on 02-11-2023 Platelet morphology finding Nom (Bld) Normal Normal [facility] Platelet morphology finding Nom (Bld) Platelet morphology finding [Identifier] in Blood Normal [facility] Platelets Auto (Bld) [#/Vol] Ordered By: Melissa Wilson on 02-11-2023 Platelets (Bld) [#/Vol] 166 10*3/uL 150-450 [facility] Potassium [Moles/volume] in Serum or PlasmaOrdered By: Melissa Wilson on 02-11-2023 Potassium [Moles/Vol] 3.8 mmol/L 3.5-5.1 [facility] Protein [Mass/volume] in Ser um or PlasmaOrdered By: Melissa Wilson on 02-11-2023 Protein [Mass/Vol] 7.3 g/dL 6.4-8.9 [facility] RBC Auto (Bld) [#/Vol]Ordere d By: Melissa Wilson on 02-11-2023 RBC (Bld) [#/Vol] 5.13 10*6/uL 3.90-5.60 [facility] RBC morphologyOrdered By: Frank Wilson on 02-11-2023 RBC morphology finding Nom (Bld) N/A [facility] RBC morphology finding Nom (Bld) RBC morphology [facility] Serum or plasma albumin/glob ulin mass ratioOrdered By: Melissa Wilson on 02-11-2023 Albumin/Globulin [Mass ratio] 1.4 {ratio} [facility] Serum or plasma anion gap de terminationOrdered By: Melissa Wilson on 02-11-2023 Anion gap [Moles/Vol] 8.7 mmol/L 6.0-15.0 [facility] Smudge cell detectionOrdered By: Melissa Wilson on 02-11-2023 Smudge cells LM Ql (Bld) Slight [facility] Smudge cells LM Ql (Bld) Smudge cell detection [facility] Sodium [Moles/volume] in Ser um or PlasmaOrdered By: Melissa Wilson on 02-11-2023 Sodium [Moles/Vol] 137 mmol/L 136-145 [facility] TRANSTHORACIC ECHO (TTE) COM PLETEon 02-11-2023 TRANSTHORACIC ECHO (TTE) COMPLETE [address], [address] [place] [address] TRANSTHORACIC ECHOCARDIOGRAM REPORT Patient Name: VELIA BAGLEY Reading Physician: [id number] Aureliano Black MD Study Date: 02/11/2023 Ordering Provider: [id number] RICH MAGANA MRN/PID: [id number] Fellow: Nurse: Date of /Age: 9 1960 / 63 years Laminator Preforms: Elizabeth Costello RDCS Yasmany Gender: M Additional Staff: Height: 175.26 cm Admit Date: Weight: 85.73 kg Admission Status: BSA: 2.02 m2 Department Location: [facility] Blood Pressure: 118 /78 mmHg Study [...] 0.5 m/s (0.6-0.9m/s) PV Max P.1 mmHg [id number] Aureliano Black MD Electronically signed on 02/11/2023 at 5:47:17 PM Final [facility] Transferrin [Mass/volume] in Serum or PlasmaOrdered By: Melissa Wilson on 02-11-2023 Transferrin [Mass/Vol] 218 mg/dL 203-362 [facility] US Heart TransthoracicOrdere d By: Aureliano Black on 02-11-2023 LV A4C EF 57.7 [facility] Work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 Performed By: #### S PUTGS #### [facility] [address] [place] [address] Dr. Carey Fisher Globulin (S) [Mass/Vol] 3.9 g/dL Normal [facility] Comment on above: Performed By: #### S PUTGS #### [facility] [address] [place] [address] Dr. Carey Fisher Glucose [Mass/Vol] 95 mg/dL Normal 74-106 [facility] Comment on above: Performed By: #### S PUTGS #### [facility] [address] [place] [address] Dr. Carey Fisher Potassium [Moles/Vol] 4.2 mmol/L Normal 3.5-5.1 [facility] Comment on above: Performed By: #### S PUTGS #### [facility] [address] [place] [address] Dr. Carey Fisher Protein [Mass/Vol] 7.0 g/dL Normal 6.4-8.2 [facility] Comment on above: Performed By: #### S PUTGS #### [facility] [address] [place] [address] Dr. Carey Fisher Sodium [Moles/Vol] 139 mmol/L Normal 136-145 [facility] Comment on above: Performed By: #### S PUTGS #### [facility] [address] [address] [address] Carey Fisher Urea nitrogen [Mass/Vol] 20.0 mg/dL Critically high 7.0-18.0 [facility] Comment on above: Performed By: #### S PUTGS #### [facility] [id number] Carey Fisher Urea nitrogen/Creatinine [Mass ratio] 19.8 mg/mg Normal [facility] Comment on above: Performed By: #### S PUTGS #### [facility] [address] [address] [address] 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 Interpretation was performed at [facility] Electronically signed by: LYNETTE DELGADO MD Normal [facility] CT Sinus without Contraston 07-17-2022 CT Sinuses [...] 90 day Botox injections onobotulinumtoxinA toxin A ([facility]- [id number] 01) History of Present IllnessToradol IM after Botox to prevent injection triggered Migraines Vitals Vital Signs Recorded: 16Jul2022 01:01PM Uhffokixlxq23.5 F, Temporal Heart Rate88, R Radial Pulse QualityRegular, R Radial Ntidcmffrvy71 Respiration QualityNormal Bxdyxhos670, RUE, Sitting Thkjgzfdr79, RUE, Sitting Blood Pressure Cuff SizeAdult Procedure [...] Botulinum Toxin were injected bilaterally into the 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 Normal [facility] Tobacco Screening.on 023 Fall risk assessment b) One or more fall s in the last year [facility] Work Phone: Tobacco use status CPHS b) No Doctor on [facility] Work Phone: ALLERGEN, RESP. AREA V w/ RE FLEXon 07-01-2022 Class Description Comment Normal [facility] Comment on above: Result Comment: Danielle chang of Specific IgE Class Description of Class ----- < 0.10 0 Negative 0.10 - 0.31 0/I Equivocal/Low 0.32 - 0.55 I Low 0.56 - 1.40 II Moderate 1.41 - 3.90 III High 3.91 - 19.00 IV Very High 19.01 - 100.00 V Very High >100.00 Very High Performed By: #### A REAFIV #### [facility] [address] [place] [address] Dr. Carey Fisher P070-EzJ D pteronyssinus <0.10 Normal Class 0 [facility] Comment on above: Performed By: #### A REAFIV #### [facility] [address] [place] [address] Dr. Carey Fisher W474-TkZ D farinae <0.10 Normal Class 0 [facility] Comment on above: Performed By: #### A REAFIV #### [facility] [address] [place] [address] Dr. Carey Fisher U610-BsZ Cat Dander <0.10 Normal Class [address] [facility] Comment on above: Performed By: #### A REAFIV #### [facility] [address] [place] [address] Dr. Carey Fisher G042-WfW Dog Dander <0.10 Normal Class [address] [facility] Comment on above: Performed By: #### A REAFIV #### [facility] [address] [place] [address] Dr. Carey Fisher C797-GwF Mouse Urine <0.10 Normal Class 0 [facility] Comment on above: Performed By: #### A REAFIV #### [facility] [address] [address] [address] Carey Fisher N567-HpD Berm[place] Grass <0.10 Normal Class 0 [facility] Comment on above: Performed By: #### A REAFIV #### [facility] [address] [place] [address] Dr. Carey Fisher K926-OhI Luis Grass <0.10 Normal Class 0 [facility] Comment on above: Performed By: #### A REAFIV #### [facility] [address] [address] [address] Carey Fisher B300-RpM Cockroach, Lithuanian <0.10 Normal Class 0 [facility] Comment on above: Performed By: #### A REAFIV #### [facility] [address] [address] [address] Carey Fisher Immunoglobulin E, Total 9 IU/mL Normal 6-495 [facility] Comment on above: Performed By: #### A REAFIV #### [facility] [address] [address] [address] Carey Fisher J086-WvB Penicillium chrysogen <0.10 Normal Class 0 [facility] Comment on above: Performed By: #### A REAFIV #### [facility] [address] [address] [address] Carey Fisher Q230-IuN Cladosporium herbarum <0.10 Normal Class 0 [facility] Comment on above: Performed By: #### A REAFIV #### [facility] [address] [address] [address] Carey Fisher L838-KcY Aspergillus fumigatus <0.10 Normal Class 0 [facility] Comment on above: Performed By: #### A REAFIV #### [facility] [address] [address] [address] Carey Fisher F347-QuS Alternaria alternata <0.10 Normal Class 0 [facility] Comment on above: Performed By: #### A REAFIV #### [facility] [address] [address] [address] Carey Fisher L076-UmS Maple/[place] <0.10 Normal Class 0 [facility] Comment on above: Performed By: #### A REAFIV #### [facility] [address] [address] [address] Carey Fisher R666-NuO Common Silver Birch <0.10 Normal Class 0 [facility] Comment on above: Performed By: #### A REAFIV #### [facility] [address] [address] [address] Carey Fisher R093-IyH [place], Mountain <0.10 Normal Class 0 [facility] Comment on above: Performed By: #### A REAFIV #### [facility] [address] [address] [address] Carey Fisher I425-ZoX [place], White <0.10 Normal Class [address] [facility] Comment on above: Performed By: #### A REAFIV #### [facility] [address] [address] [address] Carey Fisher W939-TkV Elm, Bahraini <0.10 Normal Class 0 [facility] Comment on above: Performed By: #### A REAFIV #### [facility] [address] [place] [address] Dr. Carey Fisher Z404-NjV Bond <0.10 Normal Class 0 [facility] Comment on above: Performed By: #### A REAFIV #### [facility] [address] [address] [address] Carey Fisher S082-SzQ Maple Wolf Trap [place] <0.10 Normal Class 0 [facility] Comment on above: Performed By: #### A REAFIV #### [facility] [address] [place] [address] Dr. Carey Fisher U839-CcR Travis <0.10 Normal Class [address] [facility] Comment on above: Performed By: #### A REAFIV #### [facility] [address] [address] [address] Carey Fisher M127-TsD Arnaldo, White <0.10 Normal Class [address] [facility] Comment on above: Performed By: #### A REAFIV #### [facility] [address] [place] [address] Dr. Carey Fisher W697-ZfT Pecan, [place] <0.10 Normal Class 0 [facility] Comment on above: Performed By: #### A REAFIV #### [facility] [address] [address] [address] Carey Fisher V711-ZkT White [place] <0.10 Normal Class 0 [facility] Comment on above: Performed By: #### A REAFIV #### [facility] [address] [place] [address] Dr. Carey Fisher C985-HeR Ragweed, Short <0.10 Normal Class 0 [facility] Comment on above: Performed By: #### A REAFIV #### [facility] [address] [place] [address] Dr. Carey Fisher B428-SnM Thistle, Ecuadorean <0.10 Normal Class 0 [facility] Comment on above: Performed By: #### A REAFIV #### [facility] [address] [place] [address] Dr. Carey Fisher P144-LlH Pigweed, Common <0.10 Normal Class 0 [facility] Comment on above: Performed By: #### A REAFIV #### [facility] [address] [place] [address] Dr. Carey Fisher Y119-UqY Sheep [place] <0.10 Normal Class 0 [facility] Comment on above: Performed By: #### A REAFIV #### [facility] [address] [place] [address] Dr. Carey iFsher XR WRIST RT MIN 3 Von 2022 XR WRIST RT MIN 3 V neo[employer]ae[employer] Other CBC AUTO DIFFon 06-25-2022 BASO # 0.0 103/ul Normal 0.0-0.1 [facility] Comment on above: Performed By: #### S PUTGS #### [facility] [address] [place] [address] Dr. Carey Fisher Basophils/100 WBC (Bld) 0.4 % Normal 0.2-2.0 [facility] Comment on above: Performed By: #### S PUTGS #### [facility] [address] [place] [address] Dr. Carey Fisher EO # 0.0 103/ul Normal 0.0-0.7 [facility] Comment on above: Performed By: #### S PUTGS #### [facility] [address] [place] [address] Dr. Carey Fisher Eosinophils/100 WBC (Bld) 0.0 % Critically low 0.9-7.0 [facility] Comment on above: Performed By: #### S PUTGS #### [facility] [address] [place] [address] Dr. Carey Fisher Erythrocyte distribution width (RBC) [Ratio] 17.6 % Critically high 11.0-15.0 [facility] Comment on above: Performed By: #### S PUTGS #### [facility] [address] [place] [address] Dr. Carey Fisher Hematocrit (Bld) [Volume fraction] 47.8 % Normal 42.0-54.0 [facility] Comment on above: Performed By: #### S PUTGS #### [facility] [address] [place] [address] Dr. Carey Fisher Hemoglobin (Bld) [Mass/Vol] 16.0 g/dL Normal 14.0-18.0 [facility] Comment on above: Performed By: #### S PUTGS #### [facility] [address] [place] [address] Dr. Carey Fisher IG # 0.01 10e3/ul Normal 0.00-0.03 [facility] Comment on above: Performed By: #### S PUTGS #### [facility] [address] [place] [address] Dr. Carey Fisher IG % 0.2 % Normal 0.0-0.5 [facility] Comment on above: Performed By: #### S PUTGS #### [facility] [address] [place] [address] Dr. Carey Fisher LYMPH # 1.6 103/ul Normal 1.2-3.8 [facility] Comment on above: Performed By: #### S PUTGS #### [facility] [address] [place] [address] Dr. Carey Fisher Lymphocytes/100 WBC (Bld) 33.9 % Normal 20.5-60.0 [facility] Comment on above: Performed By: #### S PUTGS #### [facility] [address] [place] [address] Dr. Carey Fisher MANUAL DIFF REQ NO Normal [facility] Comment on above: Performed By: #### S PUTGS #### [facility] [address] [place] [address] Dr. Carey Fisher MCH (RBC) [Entitic mass] 28.9 pg Normal 25.9-34.0 [facility] Comment on above: Performed By: #### S PUTGS #### [facility] [address] [place] [address] Dr. Carey Fisher MCHC (RBC) [Mass/Vol] 33.5 g/dL Normal 29.9-35.2 [facility] Comment on above: Performed By: #### S PUTGS #### [facility] [address] [place] [address] Dr. Carey Fisher MCV (RBC) [Entitic vol] 86.4 fL Normal 80.0-94.0 [facility] Comment on above: Performed By: #### S PUTGS #### [facility] [address] [place] [address] Dr. Carey Fisher MONO # 0.4 103/ul Normal 0.3-0.8 [facility] Comment on above: Performed By: #### S PUTGS #### [facility] [address] [place] [address] Dr. Carey Fisher Monocytes/100 WBC (Bld) 7.9 % Normal 1.7-12.0 [facility] Comment on above: Performed By: #### S PUTGS #### [facility] [address] [place] [address] Dr. Carey Fisher NEUT # 2.8 103/ul Normal 1.4-6.5 [facility] Comment on above: Performed By: #### S PUTGS #### [facility] [address] [place] [address] Dr. Carey Fisher Neutrophils/100 WBC (Bld) 57.6 % Normal 43.0-75.0 [facility] Comment on above: Performed By: #### S PUTGS #### [facility] [address] [address] [address] Carey Fisher Platelet mean volume (Bld) [Entitic vol] 9.0 fL Critically low 9.5-13.5 [facility] Comment on above: Performed By: #### S PUTGS #### [facility] [address] [address] [address] Carey Fisher PLT 201 103/ul Normal 150-450 [facility] Comment on above: Performed By: #### S PUTGS #### [facility] [address] [address] [address] Carey Fisher RBC 5.53 106/ul Normal 4.70-6.10 [facility] Comment on above: Performed By: #### S PUTGS #### [facility] [address] [address] [address] Carey Fisher WBC 4.8 103/ul Normal 4.0-11.0 [facility] Comment on above: Performed By: #### S PUTGS #### [facility] [address] [address] [address] 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 : Unknown Radiologist to Determine Optimal Study : Y What are the patient's signs and symptoms? : recurrent sinusitis Asthma with COPD Start: Asmanex (120 Metered Doses) 220 MCG/ACT Inhalation Aerosol Powder Breath Activated; INHALE 2 PUFFS BY MOUTH TWICE EVERY DAY IO Respitory Flow Volume Loop; Status:Complete; Done: [id number] Administered: Fasenra 30 MG/ML Subcutaneous Solution Prefilled Syringe Respiratory Allergy Profile Region 5, IC; Status:Active; Requested for:[id number]; Patient Discussion/Summary Respiratory allergy panel CT of the sinus to evaluate for recurrent symptoms Follow up with Dr. Magana Start Asmanex if OK with Dr. Magana. Hopefully this will decrease your night time allergy symptoms. This note was created using speech recognition fine arts chair software. Despite proofreading, several typographical errors might [...] Depression (31 (more content not included)... Normal [facility] MOCA ([place] Cognitive Ass essment)on 06-02-2022 MOCA ([place] Cognitive Assessment) Yes [facility] [address] [place] Work Phone: MOCA ([place] Cognitive Assessment) 2 1 COVID [facility] [address] [place] Work Phone: MOCA ([place] Cognitive Assessment) 3 1 COVID Recovery [facility] [address] [place] Work Phone: MOCA ([place] Cognitive Assessment) 1 1 COVID Recovery [facility] [address] [place] Work Phone: MOCA ([place] Cognitive Assessment) 0 1 COVID Recovery [facility] [address] [place] Work Phone: MOCA ([facility] Cognitive Assessment) 6 1 COVID Recovery [facility] [address] [place] Work Phone: MOCA ([place] Cognitive Assessment) 21 1 COVID [facility] [address] [place] Work Phone: Office Visit ( COVID [facility])on 06-02-2022 SARS-CoV-2 (COVID-19) RNA [...] PCP?s referral to Psychology for Therapy at [facility], please let me know if you would [...] information to be found on this here: [email or web address]_[email or web address] --Review the Health Talk on Managing Fatigue and Thinking Changes after COVID-19 here: [email or web address]://www.hospitals. org/Health-Talks/article s//managing-fatig iw-yji-oavynwff-changes- rukxm-dynss-09 --You can also find many helpful tips and tricks in this book: The Long COVID self-help guide, practical ways to manage symptoms by [facility] from the Post-COVID Clinic [place] To help improve sleep: --try Melatonin children's [...] COVID Recovery Clinic in 3 months, call [phone] or email [email or web address] if needed. Please also consider attending PICS support group for long-COVID and post-ICU patients. To contact support group, email [email or web address] or call [phone] Chief Complaint FUV: Wheezing, memory issues, brain fog, head and chest colds. Adult Risk Screening Spiritual and Cultural: Patient Declined. Initial Fall Risk Screening: VELIA has fallen in the last 6 months. History of Present Illness Covid-19 infection date: July 2020 (sx: cough, SOB, fever ? hospitalized at [facility] and treatd with Remdesivir, Decadron, Antibiotics, was on supplemental O2 for 10 days following hospitalization) Covid-19 vaccine status: Pfizer 02/2021, 08/2021 Occupation: retired Current Care Providers: PCP Dr. Rayo, Pulmonary Dr. Magana, Immunology Dr. Brown, Neurology Dr. Matthews and Dr. Miller, Pain Management Dr. Jiménez, Cardiology Dr. Park, ENT Dr. Ruffin [facility], Hematology at [facility] Survey scores: 12/2020 -> 08/2021 -> 05/2022 [...] is not excited about this Sees a fuel cell battery technician, Dr Muhammad, [facility] for help with anemia. Iron infusions x [...] by Problem List Migration; 2012-11-20; Moved to [facility] Mar 26 2013 9:02PM Personal history of [...] by Problem List Migration; 2012-11-20; Moved to [facility] Mar 26 2013 9:02PM History of Bilateral [...] S F Tetracycline >=16 R F Normal [facility] Comment on above: Performed By: #### S PUTCX ####[facility] [address] [address] Carey Fisher SPUTUM GRAM STAINon 05-26-19 COMMENTS Normal [facility] Comment on above: Performed By: #### S PUTGS #### [facility] [address] [address] [address] Carey Fisher DIPHTHEROIDS [facility] Comment on above: Performed By: #### S PUTGS #### [facility] [address] [address] [address] Carey Fisher EPITHELIALS <25 Normal [facility] Comment on above: Performed By: #### S PUTGS #### [facility] [address] [address] [address] Carey Fisher FUNGAL ELEMENTS MODERATE Normal [facility] Comment on above: Performed By: #### S PUTGS #### [facility] [address] [address] [address] Carey Fisher GRAM NEG BACILLI [facility] Comment on above: Performed By: #### S PUTGS #### [facility] [address] [address] [address] Carey MARTINEZ NEG DIPPLOCOCCI [facility] Comment on above: Performed By: #### S PUTGS #### [facility] [address] [address] [address] Carey MARTINEZ POS BACILLI [facility] Comment on above: Performed By: #### S PUTGS #### [facility] [address] [address] [address] Carey Fisher GRAM POSITIVE COCCI MODERATE Normal [facility] Comment on above: Performed By: #### S PUTGS #### [facility] [address] [place], [place] [address] Dr. Carey Fisher WBC (Bld) [#/Vol] 10*3/uL Normal [facility] Comment on above: Performed By: #### S PUTGS #### [facility] [address] [place], [place] [address] Dr. Carey Fisher XR hip BI w BTM9Vic 05-22-19 XR hip BI w PEL1V [facility] [employer] Other XR hip BI w PEL1V [facility] [place] [facility] [employer] Other XR hip BI w PEL1V [address] [place] [address] [employer] Other XR hip BI [place] [address] [employer] Other XR hip BI w PEL1V XRay Report [employer] Other XR hip BI w PEL1V Signed [facility] [employer] Other XR hip BI w PEL1V Patient: Valeriy Bagley MR#: [id number] [place] [employer] Other XR hip BI w PEL1V : 1960 Acct:[id number] [employer] Other XR hip BI w PEL1V Age/Sex: 62 / M ADM Date: 05/22/22 [employer] Other XR hip BI w PEL1V Loc: [facility] Room: Type : [facility] [employer] Other XR hip BI w PEL1V Attending Dr: Sally Tiwari II, MD [employer] Other XR hip BI w PEL1V Copies to: Sally Tiwari MD [employer] Other XR hip BI w PEL1V Ordering Provider: Sally Tiwari MD [employer] Other XR hip BI w PEL1V Date of Service: 05/22/22 [employer] Other XR hip BI w PEL1V XR/XR hip BI w PEL1V: Pain in right hip;Pain in left hip [employer] Other XR hip BI w PEL1V XR hip BI w PEL1V 05/22/2022 2:43 PM [employer] Other XR hip BI w PEL1V SIGNS AND SYMPTOMS: Bilateral hip pain left greater than right [employer] Other XR hip BI w PEL1V PROTOCOL: Frontal radiograph of the pelvis with crosstable lateral views of the bilateral hips [employer] Other XR hip BI w PEL1V COMPARISON: 01/23/2022 [employer] Other XR hip BI w PEL1V FINDINGS: [facility] [employer] Other XR hip BI w PEL1V There is total right hip arthroplasty hardware. There is no fracture or dislocation. No hardware [employer] Other XR hip BI w PEL1V complication. The le ft hip joint space is preserved. Degenerative changes are noted in the lumbar [employer] Other XR hip BI w PEL1V spine. The sacroilia c joints are preserved. [employer] Other XR hip BI w PEL1V X R/XR hip BI w PEL1V [employer] Other XR hip BI w PEL1V IMPRESSION: [employer] Other XR hip BI w PEL1V Total right hip arthroplasty hardware is noted without hardware complication or change in alignment. [employer] Other XR hip BI w PEL1V No fracture or dislocation. [employer] Other XR hip BI w PEL1V No significant degenerative change of the left hip. [employer] Other XR hip BI w PEL1V Degenerative changes are partly visualized in the lower lumbar spine. [employer] Other XR hip BI w PEL1V Impression dictated by: Alix Jacinto M.D.05/22/2022 3:26 PM [employer] Other XR hip BI w PEL1V Dictation Location: [facility] Other XR hip BI w PEL1V Transcribed By: PWS 05/22/22 [facility] [employer] Other XR hip BI w PEL1V Dictated By: Alix Jacinto II, MD 05/22/22 [facility] neo[employer]ae[employer] Other XR hip BI w PEL1V Signed By: [place] Other XR hip BI w PEL1V 05/22/22 [facility] [employer] Other XR lumbar spine AP/LAT/FLX/E XTon 05-22-2022 XR lumbar spine AP/LAT/FLX/EXT XR/XR lumbar spine AP/LAT/FLX/EXT: Pain in right hip;Pain in left hip [employer] Other XR lumbar spine AP/LAT/FLX/EXT XR lumbar spine AP/LAT/FLX/EXT 05/22/2022 3:30 PM [employer] Other XR lumbar spine AP/LAT/FLX/EXT SIGNS AND SYMPTOMS: Low back pain radiating into bilateral hips [employer] Other XR lumbar spine AP/LAT/FLX/EXT PROTOCOLS: Frontal and lateral radiographs of the lumbar spine including flexion and extension [employer] Other XR lumbar spine AP/LAT/FLX/EXT views. 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 There is moderate to severe disc height loss at L3-L4 and L4-5. There is mild disc [employer] Other XR lumbar spine AP/LAT/FLX/EXT height loss at L1-L2 and L2-L3. There is no fracture or subluxation. No pathologic movement on [employer] Other XR lumbar spine AP/LAT/FLX/EXT flexion or extension. The sacrum and sacroiliac joints are normal. [employer] Other XR lumbar spine AP/LAT/FLX/EXT There is total right hip arthroplasty hardware. Enthesophyte formation is noted along the left iliac [employer] Other XR lumbar spine AP/LAT/FLX/EXT wing. [employer]aej Other XR lumbar spine AP/LAT/FLX/EXT XR/XR lumbar spine AP/LAT/FLX/EXT neo[employer]aej Other XR lumbar spine AP/LAT/FLX/EXT Multilevel degenerative change is noted with a levoconvex curvature. There is no fracture, neo[employer]ae[employer] Other XR lumbar spine AP/LAT/FLX/EXT subluxation, or pathologic movement. [employer] Other XR lumbar spine AP/LAT/FLX/EXT Impression dictated by: Alix Jacinto M.D.05/22/2022 5:35 PM [employer] Other XR lumbar spine AP/LAT/FLX/EXT Transcribed By: MEI 05/22/22 173 [employer] Other XR lumbar spine AP/LAT/FLX/EXT Dictated By: Alix Jacinto II, MD 05/22/22 946 [employer] Other XR lumbar spine AP/LAT/FLX/EXT 05/22/22 1735 neo[employer]aej Other No Panel Informationon 05-12 MG-Gastroente rology-Westla ke SJW 450 DO Work Phone: [email or web address] x?={[id number]} [facility] [place] [address] DO Work Phone: [facility] [...] continued as Lyrica 100 mg oral capsule Mccune 1 tab(s) orally 2 times a day, As Needed 07-Mar-2016 11:53 Mccune 1 tab(s) orally 2 times a day, As Needed 07-Mar-2016 11:53 Mccune is continued as Mccune omeprazole 40 mg oral delayed release capsule [...] 1 cap(s) orally 2 times a day Mccune 1 tab(s) orally 2 times a day, [...] day ( (more content not included)... Normal [facility] Surgical Pathology Depar tmenton 05-12-2022 [facility] Surgical Pathology Department Name VELIA BAGLEY Pathologist: Abigail Kirkpatrick M.D. Date of Procedure: 05/12/2022 Date Received: 05/12/2022 Date Reported 05/15/2022 Submitting Physician: PARK BYRD MD Location: [facility] Other External # FINAL DIAGNOSIS A. [...] METAPLASIA. Electronically Signed Out By Abigail Kirkpatrick M.D./[facility] By the signature on this report, the individual or group listed as making the Final Interpretation/Diagnosis certifies that they have reviewed this case. Diagnostic interpretation performed at [facility] [address] [place] [address] Clinical History: Anemia, dysphagia Specimens Submitted As: [...] in toto in one cassette. LMP lmp/05/13/2022 [facility] Department of Pathology [address] [place] [address] Normal [facility] Comment on above: Performed By: #### U [facility] #### [facility] Surgical Pathology Department [id number] [place], [place] [id number] Upper GI endoscopyon 023 Upper GI endoscopy PATIENTNAME Patient Name: Velia Bagley EXAMDATE Procedure Date: 05/12/2022 8:28 AM PATIENTID PATIENTACCOUNTNUM PATIENTDOB Date of : 1960 ADMITTYPE Admit Type: Outpatient PATIENTROOM Site: [facility] 1 ETHNICITY Ethnicity: Not or RACE Race: White PROVDR Attending MD: Park Byrd MD, [id number] ENDOPROCEDURENAME Procedure: Upper GI endoscopy INDICATION Indications: Iron deficiency anemia, Dysphagia PTPROFILE Patient Profile: This is a 62 year old male. Refer to note in patient chart for documentation of history and physical. PRIMARYPROVIDER Providers: Park Byrd MD (Doctor), Barbara Michelle RN (Nurse), Anson Fernandez, Risk Control Field Representative EDREFPROVIDER Referring: Melissa Williamson Steve CURRENT_MEDS Medicines: [...] verified by the physician, the nurse, the fitting room checker and the oscillograph technician in the procedure room. Mental Status [...] results. CPT_CODES Procedure Code(s): --- Professional --- 99159, Esophagogastroduodenosco py, flexible, transoral; with biopsy, single or multiple ICD_CODES Diagnosis Code(s): --- Professional --- K22.89, Other specified disease of esophagus K31.89, Other diseases of stomach and duodenum D50.9, Iron deficiency anemia, unspecified R13.10, Dysphagia, unspecified CODINGSTMT CPT copyright 2020 [employer]. All rights reserved. The codes documented in this report are preliminary and upon assembler sandal parts review may be revised to meet current compliance requirements. ATTDRPART Attending Participation: I personally performed the en (more content not included)... Normal [facility] Albumin [Mass/volume] in Ser um or PlasmaOrdered By: Melissa Wilson on 05-08-2022 Albumin [Mass/Vol] 3.5 g/dL 3.2-5.5 [facility] Anisocytosis LM Ql (Bld)Orde red By: Melissa Wilson on 05-08-2022 Anisocytosis Ql (Bld) Moderate [facility] Basophils Auto (Bld) [#/Vol] Ordered By: Melissa Wilson on 05-08-2022 Basophils (Bld) [#/Vol] 0.0 10*3/uL 0.0-0.2 [facility] Basophils/100 WBC Auto (Bld) Ordered By: Melissa Wilson on 05-08-2022 Basophils/100 WBC (Bld) 0.2 % . [facility] CT biopsyOrdered By: Melissa Jason on 05-08-2022 Transferrin [Mass/Vol] 174 mg/dL 180-380 [facility] Creatinine and Glomerular fi ltration rate.predicted panel (S/P/Bld)Ordered By: Melissa Wilson on 05-08-2022 Creatinine [Mass/Vol] 1.18 mg/dL 0.64-1.27 [facility] Eosinophils Auto (Bld) [#/Vo l]Ordered By: Melissa Wilson on 05-08-2022 Eosinophils (Bld) [#/Vol] 0.0 10*3/uL 0.0-0.45 [facility] Eosinophils/100 WBC Auto (Bl d)Ordered By: Melissa Wilson on 05-08-2022 Eosinophils/100 WBC (Bld) 0.0 % . [facility] Erythrocyte distribution wid th Auto (RBC) [Ratio]Ordered By: Melissa Wilson on 05-08-2022 Erythrocyte distribution width (RBC) [Ratio] 19.3 % 12.0-14.8 [facility] Estimated glomerular filtrat ion rate (GFR) non- AmericanOrdered By: Melissa Wilson on 05-08-2022 GFR/1.73 sq M.predicted among non-blacks MDRD (S/P/Bld) [Vol rate/Area] > 60 mL/Min [facility] GFR/1.73 sq M.predicted among non-blacks MDRD (S/P/Bld) [Vol rate/Area] Estimated glomerular filtration rate (GFR) non- [facility] Ferritin [Mass/volume] in Se rum or PlasmaOrdered By: Melissa Wilson on 05-08-2022 Ferritin [Mass/Vol] 185.8 ng/mL 23.9-336.2 [facility] Globulin Calc (S) [Mass/Vol] Ordered By: Melissa Wilson on 05-08-2022 Globulin (S) [Mass/Vol] 3.2 g/dL [facility] Hematocrit Auto (Bld) [Volum e fraction]Ordered By: Melissa Wilson on 05-08-2022 Hematocrit (Bld) [Volume fraction] 42.8 % 38.8-50.0 [facility] Hemoglobin [Mass/volume] in BloodOrdered By: Melissa Wilson on 05-08-2022 Hemoglobin (Bld) [Mass/Vol] 13.8 g/dL 13.0-17.0 [facility] Iron [Mass/volume] in Serum or PlasmaOrdered By: Melissa Wilson on 05-08-2022 Iron [Mass/Vol] 73 ug/dL 40-160 [facility] Iron binding capacity [Mass/ volume] in Serum or PlasmaOrdered By: Melissa Wilson on 05-08-2022 Iron binding capacity [Mass/Vol] 244 ug/dL 255-450 [facility] Iron saturation [Mass Fracti on] in Serum or PlasmaOrdered By: Melissa Wilson on 05-08-2022 Iron saturation [Mass fraction] 29.9 % 20-50 [facility] Lactate dehydrogenase measur ement (enzymatic activity/volume)Ordered By: Melissa Wilson on 05-08-2022 LDH (Unsp spec) [Catalytic activity/Vol] 132 U/L 45-190 [facility] LDH (Unsp spec) [Catalytic activity/Vol] Lactate dehydrogenase measurement (enzymatic activity/volume) 45-190 [facility] Leukocytes [#/volume] correc adalberto for nucleated erythrocytes in Blood by Automated counOrdered By: Melissa Wilson on 05-08-2022 WBC corrected for nucl RBC Auto (Bld) [#/Vol] 2.9 10*3/uL 4.1-10.5 [facility] Lymphocytes Auto (Bld) [#/Vo l]Ordered By: Melissa Wilson on 05-08-2022 Lymphocytes (Bld) [#/Vol] 1.2 10*3/uL 1.00-4.8 [facility] Lymphocytes/100 WBC Auto (Bl d)Ordered By: Melissa Wilson on 05-08-2022 Lymphocytes/100 WBC (Bld) 42.4 % . [facility] MCH Auto (RBC) [Entitic mass ]Ordered By: Melissa Wilson on 05-08-2022 MCH (RBC) [Entitic mass] 27.5 pg 27.5-35.2 [facility] MCHC Auto (RBC) [Mass/Vol]Or dered By: Melissa Wilson on 05-08-2022 MCHC (RBC) [Mass/Vol] 32.3 g/dL 32.5-35.6 [facility] MCV Auto (RBC) [Entitic vol] Ordered By: Melissa Wilson on 05-08-2022 MCV (RBC) [Entitic vol] 85.2 fL 83.5-101 [facility] Microcytes LM Ql (Bld)Ordere d By: Melissa Wilson on 05-08-2022 Microcytes Ql (Bld) Moderate [facility] Monocytes Auto (Bld) [#/Vol] Ordered By: Melissa Wilson on 05-08-2022 Monocytes (Bld) [#/Vol] 0.4 10*3/uL 0.0-0.8 [facility] Monocytes/100 WBC Auto (Bld) Ordered By: Melissa Wilson on 05-08-2022 Monocytes/100 WBC (Bld) 12.3 % . [facility] Neutrophils Auto (Bld) [#/Vo l]Ordered By: Melissa Wilson on 05-08-2022 Neutrophils (Bld) [#/Vol] 1.3 10*3/uL 1.8-7.7 [facility] Neutrophils/100 WBC Auto (Bl d)Ordered By: Melissa Wilson on 05-08-2022 Neutrophils/100 WBC (Bld) 45.1 % . [facility] No Panel InformationOrdered By: Melissa Wilson on 05-08-2022 Estimated GFR () > 60 mL/Min [facility] Comment on above: GFR estimated refere nce range: According to KDOQI guidelines, <60 ml/min/1.73m2 is sufficient to diagnose a patient with chronic kidney disease. Pharmacy Creatinine Clearance (Chem 71.65 [facility] Nucleated erythrocytes [Pres ence] in Blood by Automated countOrdered By: Melissa Wilson on 05-08-2022 Nucleated RBC Auto Ql (Bld) 0.1 /100{WBC} 0-0.5 [facility] Ovalocyte detectionOrdered B y: Melissa Wilson on 05-08-2022 Ovalocytes LM Ql (Bld) Slight [facility] Ovalocytes LM Ql (Bld) Ovalocyte detection [facility] Platelet adequacy [Presence] in Blood by Light microscopyOrdered By: Melissa Wilson on 05-08-2022 Platelets LM Ql (Bld) Normal Normal [facility] Platelet mean volume Auto (B ld) [Entitic vol]Ordered By: Melissa Wilson on 05-08-2022 Platelet mean volume (Bld) [Entitic vol] 7.8 fL 6.6-10.1 [facility] Platelet morphology finding [Identifier] in BloodOrdered By: Melissa Wilson on 05-08-2022 Platelet morphology finding Nom (Bld) Normal Normal [facility] Platelets Auto (Bld) [#/Vol] Ordered By: Melissa Wilson on 05-08-2022 Platelets (Bld) [#/Vol] 155 10*3/uL 150-450 [facility] Poikilocytosis [Presence] in Blood by Light microscopyOrdered By: Melissa Wilson on 05-08-2022 Poikilocytosis LM Ql (Bld) Slight [facility] Poikilocytosis LM Ql (Bld) Poikilocytosis [Presence] in Blood by Light microscopy [facility] Protein [Mass/volume] in Ser um or PlasmaOrdered By: Melissa Wilson on 05-08-2022 Protein [Mass/Vol] 6.7 g/dL 6.1-7.9 [facility] RBC Auto (Bld) [#/Vol]Ordere d By: Melissa Wilson on 05-08-2022 RBC (Bld) [#/Vol] 5.02 10*6/uL 3.90-5.60 [facility] RBC morphologyOrdered By: Frank Wilson on 05-08-2022 RBC morphology finding Nom (Bld) N/A [facility] Serum or plasma alanine mosher otransferase measurement without P-5'-P (enzymatic activiOrdered By: Melissa Wilson on 05-08-2022 ALT No additional P-5'-P [Catalytic activity/Vol] 16 U/L 10-60 [facility] Serum or plasma albumin/glob ulin mass ratioOrdered By: Melissa Wilson on 05-08-2022 Albumin/Globulin [Mass ratio] 1.1 {ratio} [facility] Serum or plasma alkaline nyla sphatase measurement (enzymatic activity/volume)Ordered By: Melissa Wilson on 05-08-2022 ALP [Catalytic activity/Vol] 115 U/L 32-92 [facility] Serum or plasma anion gap de terminationOrdered By: Melissa Wilson on 05-08-2022 Anion gap [Moles/Vol] 8.7 mmol/L 6.0-15.0 [facility] Serum or plasma aspartate am inotransferase measurement (enzymatic activity/volume)Ordered By: Melissa Wilson on 05-08-2022 AST [Catalytic activity/Vol] 22 U/L 10-42 [facility] Serum or plasma calcium javan urement (mass/volume)Ordered By: Melissa Wilson on 05-08-2022 Calcium [Mass/Vol] 8.5 mg/dL 8.2-10.2 [facility] Serum or plasma chloride hansa surement (moles/volume)Ordered By: Melissa Wilson on 05-08-2022 Chloride [Moles/Vol] 108 mmol/L 95-114 [facility] Serum or plasma glucose javan urement (mass/volume)Ordered By: Melissa Wilson on 05-08-2022 Glucose [Mass/Vol] 105 mg/dL 70-100 [facility] Comment on above: ADA recommended refe rence rangeRandom Glucose Reference Range is dependent on time and content of last meal. Glucose of more than 200 mg/dL in a nonstressed, ambulatory subject supports the diagnosis of Diabetes Mellitus. Serum or plasma potassium me asurement (moles/volume)Ordered By: Melissa Wilson on 05-08-2022 Potassium [Moles/Vol] 3.6 mmol/L 3.5-5.1 [facility] Serum or plasma sodium measu rement (moles/volume)Ordered By: Melissa Wilson on 05-08-2022 Sodium [Moles/Vol] 136 mmol/L 136-146 [facility] Serum or plasma total biliru bin measurement (mass/volume)Ordered By: Melissa Wilson on 05-08-2022 Bilirubin [Mass/Vol] 0.3 mg/dL 0.3-1.2 [facility] Serum or plasma total carbon dioxide measurement (moles/volume)Ordered By: Melissa Wilson on 05-08-2022 CO2 [Moles/Vol] 22.9 mmol/L 22.0-30.0 [facility] Serum or plasma urea nitroge n measurement (mass/volume)Ordered By: Melissa Wilson on 05-08-2022 Urea nitrogen [Mass/Vol] 14 mg/dL 9-23 [facility] WBC Auto (Bld) [#/Vol]Ordere d By: Melissa Wilson on 05-08-2022 WBC (Bld) [#/Vol] 2.9 10*3/uL 4.1-10.5 [facility] CT Chest High Resolutionon 1 CT Chest [...] 06/05/2021, 01/02/2021 CTA chest 12/06/2020 ACCESSION NUMBER(S): [id number] ORDERING CLINICIAN: RICH MAGANA TECHNIQUE: Using helical [...] as per chest pain guidelines (e.g. https://doi.org/10.1161/ CIR.[email or web address]). If the patient is asymptomatic consider reviewing modifiable cardiovascular risk factors and managing as per guidelines for primary prevention (e.g. https://doi.org/10.1161/ CIR.8242401972122429) I personally reviewed the images/study and I agree with the findings as stated. This study was interpreted at [facility], [place], [place]. Electronically signed by: SAW PIÑA MD Normal [facility] Procedure (Neurology)on 04-03 Procedure (Neurology) Patient Instructio [...] 90 day Botox injections onobotulinumtoxinA toxin A ([facility]- 2010-4016 01) History of Present IllnessToradol IM after Botox to prevent injection triggered Migraines Vitals Vital Signs Recorded: [id number] 02:35PM Jusrxrgcjou79.4 F Heart Rate80 Lccpuyvd545, LUE, Sitting Ujeyddgts42, LUE, Sitting Height5 ft 9 in Procedure [...] Botulinum Toxin were injected bilaterally into the tool and production planner muscle, procerus muscle, frontalis muscle., temporalis muscle, occipitalis muscle, cervical paraspinal muscle. Lot number: . Expiration date: . Post-Procedure: the patient tolerated the procedure well. Complications: None. Follow-up in the office in 6 week(s). Signatures Electronically signed by : Jodie Matthews MD; Apr 16 2022 4:58PM EST (Author) Normal [employer] IGGon 04-15-2022 IgG [Mass/Vol] 1450 mg/dL Normal 700 - 1600 [facility] Comment on above: Result Comment: MONO CLONAL PROTEINS MAY CAUSE FALSELY LOW RESULTS IN THIS ASSAY. SERUM PROTEIN ELECTROPHORESIS SHOULD BE DONE THE FIRST TEST TO EVALUATE MONOCLONAL GAMMOPATHY. Performed By: #### I GG #### [facility] [address] [place] [address] Immunoglobulin G Level, Seru mon 04-15-2022 IgG [Mass/Vol] 1450 mg/dL 700 - 1600 [facility] [place] [address] Work Phone: Comment on above: MONOCLONAL [...] prior. By signing my name below, I, Ingrid Lengyel,Scribe, attest that this documentation has been [...] to protect himself. He was taken to [facility] where he received stitches. He saw orthopedics [...] Patient has a colonoscopy and anoscopy at [place] secondary to his iron deficiency. He saw the TIN POT OPERATOR, Plumber Apprentice, once. He sees Dr. Magana, Veterinary Attendant, tomorrow. His next infusion is scheduled 04/29/2022. [...] with status (more content not included)... Normal [facility] IGG SUBCLASSES (1-4) AND TOT Litzy 04-09-2022 IgG, Subclass 1 QNSTST Normal [facility] Comment on above: Result Comment: Test not performed. Insufficient specimen to perform or complete analysis. contacted Lindsay at your facility on 04-09-2022 Performed By: #### I GGSB ####[facility] [id number] [place], [place] [address]Dr. Carey Fisher IgG, Subclass 2 QNSTST Normal [facility] Comment on above: Result Comment: Test not performed. Insufficient specimen to perform or complete analysis. contacted Lindsay at your facility on 04-09-2022 Performed By: #### I GGSB ####[facility] [id number] [place] [address]Dr. Carey Fisher IgG, Subclass 3 QNSTST Normal [facility] Comment on above: Result Comment: Test not performed. Insufficient specimen to perform or complete analysis. contacted Lindsay at your facility on 04-09-2022 Performed By: #### I GGSB ####[facility] [id number] [place] [id number]. Carey Fisher IgG, Subclass 4 QNSTST Normal [facility] Comment on above: Result Comment: Test not performed. Insufficient specimen to perform or complete analysis. contacted Lindsay at your facility on 04-09-2022 Performed By: #### I GGSB ####[facility] [id number] [place] [address]Dr. Carey Fisher Immunoglobulin G, Qn, Serum 1059 mg/dL Normal 603-1613 [facility] Comment on above: Performed By: #### I GGSB ####[facility] [id number] [place] [address]Dr. Jennyes Fisher Albumin [Mass/volume] in Ser um or PlasmaOrdered By: Shari Haddad on 04-05-2022 Albumin [Mass/Vol] 3.6 g/dL 3.2-5.5 [facility] Anisocytosis LM Ql (Bld)Orde red By: Shari Haddad on 04-05-2022 Anisocytosis Ql (Bld) Slight [facility] Basophils Auto (Bld) [#/Vol] Ordered By: Shari Haddad on 04-05-2022 Basophils (Bld) [#/Vol] 0.0 10*3/uL 0.0-0.2 [facility] Basophils/100 WBC Auto (Bld) Ordered By: Shari Haddad on 04-05-2022 Basophils/100 WBC (Bld) 0.3 % . [facility] Creatinine and Glomerular fi ltration rate.predicted panel (S/P/Bld)Ordered By: Shari Haddad on 04-05-2022 Creatinine [Mass/Vol] 1.08 mg/dL 0.64-1.27 [facility] Eosinophils Auto (Bld) [#/Vo l]Ordered By: Shari Haddad on 04-05-2022 Eosinophils (Bld) [#/Vol] 0.0 10*3/uL 0.0-0.45 [facility] Eosinophils/100 WBC Auto (Bl d)Ordered By: Shari Haddad on 04-05-2022 Eosinophils/100 WBC (Bld) 0.0 % . [facility] Erythrocyte distribution wid th Auto (RBC) [Ratio]Ordered By: Shari Haddad on 04-05-2022 Erythrocyte distribution width (RBC) [Ratio] 25.3 % 12.0-14.8 [facility] Estimated glomerular filtrat ion rate (GFR) non- AmericanOrdered By: Shari Haddad on 04-05-2022 GFR/1.73 sq M.predicted among non-blacks MDRD (S/P/Bld) [Vol rate/Area] > 60 mL/Min [facility] Globulin Calc (S) [Mass/Vol] Ordered By: Shari Haddad on 04-05-2022 Globulin (S) [Mass/Vol] 3.4 g/dL [facility] Hematocrit Auto (Bld) [Volum e fraction]Ordered By: Shari Haddad on 04-05-2022 Hematocrit (Bld) [Volume fraction] 41.4 % 38.8-50.0 [facility] Hemoglobin [Mass/volume] in BloodOrdered By: Shari Haddad on 04-05-2022 Hemoglobin (Bld) [Mass/Vol] 13.1 g/dL 13.0-17.0 [facility] Hypochromia LM Ql (Bld)Order ed By: Shari Haddad on 04-05-2022 Hypochromia Ql (Bld) Slight [facility] Leukocytes [#/volume] correc adalberto for nucleated erythrocytes in Blood by Automated counOrdered By: Shari Haddad on 04-05-2022 WBC corrected for nucl RBC Auto (Bld) [#/Vol] 4.6 10*3/uL 4.1-10.5 [facility] Lymphocytes Auto (Bld) [#/Vo l]Ordered By: Shari Haddad on 04-05-2022 Lymphocytes (Bld) [#/Vol] 1.6 10*3/uL 1.00-4.8 [facility] Lymphocytes/100 WBC Auto (Bl d)Ordered By: Shari Haddad on 04-05-2022 Lymphocytes/100 WBC (Bld) 34.6 % . [facility] MCH Auto (RBC) [Entitic mass ]Ordered By: Shari Haddad on 04-05-2022 MCH (RBC) [Entitic mass] 25.2 pg 27.5-35.2 [facility] MCHC Auto (RBC) [Mass/Vol]Or dered By: Shari Haddad on 04-05-2022 MCHC (RBC) [Mass/Vol] 31.8 g/dL 32.5-35.6 [facility] MCV Auto (RBC) [Entitic vol] Ordered By: Shari Haddad on 04-05-2022 MCV (RBC) [Entitic vol] 79.3 fL 83.5-101 [facility] Microcytes LM Ql (Bld)Ordere d By: Shari Haddad on 04-05-2022 Microcytes Ql (Bld) Slight [facility] Monocyte distribution width [Entitic volume] in Blood by AutomatedOrdered By: Shari Haddad on 04-05-2022 Monocyte distribution width Auto (Bld) [Entitic vol] 20.17 % 0.00-20.00 [facility] Comment on above: For adults in ED, MD W > 20.0 may be associated with a higher risk of sepsis during the first 12 hrs of hospital admission Monocytes Auto (Bld) [#/Vol] Ordered By: Shari Haddad on 04-05-2022 Monocytes (Bld) [#/Vol] 0.4 10*3/uL 0.0-0.8 [facility] Monocytes/100 WBC Auto (Bld) Ordered By: Shari Haddad on 04-05-2022 Monocytes/100 WBC (Bld) 8.9 % . [facility] Neutrophils Auto (Bld) [#/Vo l]Ordered By: Shari Haddad on 04-05-2022 Neutrophils (Bld) [#/Vol] 2.6 10*3/uL 1.8-7.7 [facility] Neutrophils/100 WBC Auto (Bl d)Ordered By: Shari Haddad on 04-05-2022 Neutrophils/100 WBC (Bld) 56.2 % . [facility] No Panel InformationOrdered By: Shari Haddad on 04-05-2022 Estimated GFR () > 60 mL/Min [facility] Comment on above: GFR estimated refere nce range: According to KDOQI guidelines, <60 ml/min/1.73m2 is sufficient to diagnose a patient with chronic kidney disease. Pharmacy Creatinine Clearance (Chem 71.83 [facility] Nucleated erythrocytes [Pres ence] in Blood by Automated countOrdered By: Shari Haddad on 04-05-2022 Nucleated RBC Auto Ql (Bld) 0.1 /100{WBC} 0-0.5 [facility] Ovalocyte detectionOrdered B y: Shari Haddad on 04-05-2022 Ovalocytes LM Ql (Bld) Slight [facility] Platelet adequacy [Presence] in Blood by Light microscopyOrdered By: Shari Haddad on 04-05-2022 Platelets LM Ql (Bld) Normal Normal [facility] Platelet mean volume Auto (B ld) [Entitic vol]Ordered By: Shari Haddad on 04-05-2022 Platelet mean volume (Bld) [Entitic vol] 8.4 fL 6.6-10.1 [facility] Platelet morphology finding [Identifier] in BloodOrdered By: Shari Haddad on 04-05-2022 Platelet morphology finding Nom (Bld) Normal Normal [facility] Platelets Auto (Bld) [#/Vol] Ordered By: Shari Haddad on 04-05-2022 Platelets (Bld) [#/Vol] 189 10*3/uL 150-450 [facility] Poikilocytosis [Presence] in Blood by Light microscopyOrdered By: Shari Haddad on 04-05-2022 Poikilocytosis LM Ql (Bld) Slight [facility] Polychromasia [Presence] in Blood by Light microscopyOrdered By: Shari Haddad on 04-05-2022 Polychromasia LM Ql (Bld) Slight [facility] Protein [Mass/volume] in Ser um or PlasmaOrdered By: Shari Haddad on 04-05-2022 Protein [Mass/Vol] 7.0 g/dL 6.1-7.9 [facility] RBC Auto (Bld) [#/Vol]Ordere d By: Shari Haddad on 04-05-2022 RBC (Bld) [#/Vol] 5.22 10*6/uL 3.90-5.60 [facility] RBC morphologyOrdered By: Niraj Haddad on 04-05-2022 RBC morphology finding Nom (Bld) N/A [facility] Serum or plasma alanine mosher otransferase measurement without P-5'-P (enzymatic activiOrdered By: Shari Haddad on 04-05-2022 ALT No additional P-5'-P [Catalytic activity/Vol] 15 U/L 10-60 [facility] Serum or plasma albumin/glob ulin mass ratioOrdered By: Shari Haddad on 04-05-2022 Albumin/Globulin [Mass ratio] 1.1 {ratio} [facility] Serum or plasma alkaline nyla sphatase measurement (enzymatic activity/volume)Ordered By: Shari Haddad on 04-05-2022 ALP [Catalytic activity/Vol] 89 U/L 32-92 [facility] Serum or plasma anion gap de terminationOrdered By: Shari Haddad on 04-05-2022 Anion gap [Moles/Vol] 11.4 mmol/L 6.0-15.0 [facility] Serum or plasma aspartate am inotransferase measurement (enzymatic activity/volume)Ordered By: Shari Haddad on 04-05-2022 AST [Catalytic activity/Vol] 20 U/L 10-42 [facility] Serum or plasma calcium javan urement (mass/volume)Ordered By: Shari Haddad on 04-05-2022 Calcium [Mass/Vol] 8.5 mg/dL 8.2-10.2 [facility] Serum or plasma chloride hansa surement (moles/volume)Ordered By: Shari Haddad on 04-05-2022 Chloride [Moles/Vol] 105 mmol/L 95-114 [facility] Serum or plasma ethanol javan urement (mass/volume)Ordered By: Shari Haddad on 04-05-2022 Ethanol [Mass/Vol] mg/dL [facility] Ethanol [Mass/Vol] TNP [facility] Comment on above: Test not performed Serum or plasma glucose javan urement (mass/volume)Ordered By: Shari Haddad on 04-05-2022 Glucose [Mass/Vol] 86 mg/dL 70-100 [facility] Comment on above: ADA recommended refe rence rangeRandom Glucose Reference Range is dependent on time and content of last meal. Glucose of more than 200 mg/dL in a nonstressed, ambulatory subject supports the diagnosis of Diabetes Mellitus. Serum or plasma potassium me asurement (moles/volume)Ordered By: Shari Haddad on 04-05-2022 Potassium [Moles/Vol] 4.2 mmol/L 3.5-5.1 [facility] Serum or plasma sodium measu rement (moles/volume)Ordered By: Shari Haddad on 04-05-2022 Sodium [Moles/Vol] 134 mmol/L 136-146 [facility] Serum or plasma total biliru bin measurement (mass/volume)Ordered By: Shari Haddad on 04-05-2022 Bilirubin [Mass/Vol] 0.2 mg/dL 0.3-1.2 [facility] Serum or plasma total carbon dioxide measurement (moles/volume)Ordered By: Shari Haddad on 04-05-2022 CO2 [Moles/Vol] 21.8 mmol/L 22.0-30.0 [facility] Serum or plasma urea nitroge n measurement (mass/volume)Ordered By: Shari Haddad on 04-05-2022 Urea nitrogen [Mass/Vol] 17 mg/dL 01-24 [facility] Teardrop cell detectionOrder ed By: Shari Haddad on 04-05-2022 Dacrocytes LM Ql (Bld) Slight [facility] Troponin I.cardiac [Mass/vol ume] in Serum or Plasma by High sensitivity methodOrdered By: Shari Haddad on 04-05-2022 Troponin I.cardiac High sensitivity method [Mass/Vol] 7 pg/mL 0-20 [facility] WBC Auto (Bld) [#/Vol]Ordere d By: Shari Haddad on 04-05-2022 WBC (Bld) [#/Vol] 4.6 10*3/uL 4.1-10.5 [facility] PROF 14(COMP METB)on 022 Albumin [Mass/Vol] 3.7 g/dL Normal 3.4-5.0 [facility] Comment on above: Performed By: #### C MP ####[facility] [address] [address]DrSindi Fisher Albumin/Globulin [Mass ratio] 1.1 {ratio} Normal [facility] Comment on above: Performed By: #### C MP ####[facility] [address] [address]Dr. Carey Fisher ALP [Catalytic activity/Vol] 114 U/L Normal 46-116 [facility] Comment on above: Performed By: #### C MP ####[facility] [address] [place] [address]Dr. Carey Fisher ALT [Catalytic activity/Vol] 21 U/L Normal 16-63 [facility] Comment on above: Performed By: #### C MP ####[facility] [address] [place] [address]DrSindi Fisher Anion gap [Moles/Vol] 16.2 mmol/L Normal [facility] Comment on above: Performed By: #### C MP ####[facility] [address] [place], [place] [address]Dr. Caery Fisher AST [Catalytic activity/Vol] 20 U/L Normal 15-37 [facility] Comment on above: Performed By: #### C MP ####[facility] [address] [place], [place] [address]Dr. Carey Fisher Bilirubin [Mass/Vol] 0.2 mg/dL Normal 0.2-1.0 [facility] Comment on above: Performed By: #### C MP ####[facility] [address] [place], [place] [address]Dr. Carey Fisher Calcium [Mass/Vol] 8.2 mg/dL Critically low 8.5-10.1 [facility] Comment on above: Performed By: #### C MP ####[facility] [address] [place], [place] [address]Dr. Carey Fisher Chloride [Moles/Vol] 105 mmol/L Normal 98-107 [facility] Comment on above: Performed By: #### C MP ####[facility] H[address] [place], [place] [address]Dr. Carey Fisher CO2 [Moles/Vol] 20.8 mmol/L Critically low 21.0-32.0 [facility] Comment on above: Performed By: #### C MP ####[facility] [address] [place], [place] [address]Dr. Carey Fisher Creatinine [Mass/Vol] 1.02 mg/dL Normal 0.70-1.30 [facility] Comment on above: Performed By: #### C MP ####[facility] [address] [place], [place] [address]Dr. Carey Fisher EGFR-AF CITIZEN [place] >60 Normal >=60 [facility] Comment on above: Performed By: #### C MP ####[facility] [address] [place], [place] [address]Dr. Carey Fisher EGFR-NON AF CITIZEN OF [place] >60 Normal >=60 [facility] Comment on above: Performed By: #### C MP ####[facility] [address] [place] [address]Dr. Jennyes Phillip Globulin (S) [Mass/Vol] 3.3 g/dL Normal [facility] Comment on above: Performed By: #### C MP ####[facility] [address] [place] [address]Dr. Carey Fisher Glucose [Mass/Vol] 72 mg/dL Critically low 74-106 [facility] Comment on above: Performed By: #### C MP ####[facility] [address] [place] [address]Dr. Carey Fisher Potassium [Moles/Vol] 4.0 mmol/L Normal 3.5-5.1 [facility] Comment on above: Performed By: #### C MP ####[facility] [address] [place], [place] [address]Dr. Carey Fisher Protein [Mass/Vol] 7.0 g/dL Normal 6.4-8.2 [facility] Comment on above: Performed By: #### C MP ####[facility] [address] [place], [place] [address]Dr. Carey Fisher Sodium [Moles/Vol] 138 mmol/L Normal 136-145 [facility] Comment on above: Performed By: #### C MP ####[facility] [address] [place], [place] [address]Dr. Carey Fisher Urea nitrogen [Mass/Vol] 27.0 mg/dL Critically high 7.0-18.0 [facility] Comment on above: Performed By: #### C MP ####[facility] [address] [place], [place] [address]Dr. Carey Fisher Urea nitrogen/Creatinine [Mass ratio] 26.5 mg/mg Normal [facility] Comment on above: Performed By: #### C MP ####[facility] [address] [place], [place] [address]Dr. Carey Fisher CT CSPINE WO CONon 2 [...] RACHELLE CHAVEZ Date: 2022-03-28 00:02 Normal [facility] CT HEAD WO CONon 03-28-2022 CT HEAD [...] DUSTIN GRAVES Date: 2022-03-27 23:47 Normal [facility] Basophils Auto (Bld) [#/Vol] Ordered By: Alina Moran on 03-13-2022 Basophils (Bld) [#/Vol] 0.0 10*3/uL 0.0-0.2 [facility] Basophils/100 WBC Auto (Bld) Ordered By: Alina Moran on 03-13-2022 Basophils/100 WBC (Bld) 0.2 % . [facility] CT biopsyOrdered By: Alina jacobs on 03-13-2022 Transferrin [Mass/Vol] 262 mg/dL 180-380 [facility] Eosinophils Auto (Bld) [#/Vo l]Ordered By: Alina Moran on 03-13-2022 Eosinophils (Bld) [#/Vol] 0.0 10*3/uL 0.0-0.45 [facility] Eosinophils/100 WBC Auto (Bl d)Ordered By: Alina Moran on 03-13-2022 Eosinophils/100 WBC (Bld) 0.0 % . [facility] Erythrocyte distribution wid th Auto (RBC) [Ratio]Ordered By: Alina Moran on 03-13-2022 Erythrocyte distribution width (RBC) [Ratio] 28.1 % 12.0-14.8 [facility] Ferritin [Mass/volume] in Se rum or PlasmaOrdered By: Alina Moran on 03-13-2022 Ferritin [Mass/Vol] 20.4 ng/mL 23.9-336.2 [facility] Hematocrit Auto (Bld) [Volum e fraction]Ordered By: Alina Moran on 03-13-2022 Hematocrit (Bld) [Volume fraction] 43.2 % 38.8-50.0 [facility] Hemoglobin [Mass/volume] in BloodOrdered By: Alina Moran on 03-13-2022 Hemoglobin (Bld) [Mass/Vol] 13.6 g/dL 13.0-17.0 [facility] Hypochromia LM Ql (Bld)Order ed By: Alina Moran on 03-13-2022 Hypochromia Ql (Bld) Slight [facility] Hypochromia Ql (Bld) Hypochromia [Presen ce] in Blood by Light microscopy [facility] Iron [Mass/volume] in Serum or PlasmaOrdered By: Alina Moran on 03-13-2022 Iron [Mass/Vol] 51 ug/dL 40-160 [facility] Iron binding capacity [Mass/ volume] in Serum or PlasmaOrdered By: Alina Moran on 03-13-2022 Iron binding capacity [Mass/Vol] 367 ug/dL 255-450 [facility] Iron saturation [Mass Fracti on] in Serum or PlasmaOrdered By: Alina Moran on 03-13-2022 Iron saturation [Mass fraction] 13.0 % 20-50 [facility] Laboratory - Hematology and Cell countsOrdered By: Alina Moran on 03-13-2022 Nucleated RBC/100 WBC (Bld) [Ratio] 0.1 % 0-0.5 [facility] Leukocytes [#/volume] in Blo od by Automated countOrdered By: Alina Moran on 03-13-2022 WBC (Bld) [#/Vol] 4.5 10*3/uL 4.5-11.0 [facility] Lymphocytes Auto (Bld) [#/Vo l]Ordered By: Alina Moran on 03-13-2022 Lymphocytes (Bld) [#/Vol] 1.2 10*3/uL 1.00-4.8 [facility] Lymphocytes/100 WBC Auto (Bl d)Ordered By: Alina Moran on 03-13-2022 Lymphocytes/100 WBC (Bld) 26.1 % . [facility] MCH Auto (RBC) [Entitic mass ]Ordered By: Alina Moran on 03-13-2022 MCH (RBC) [Entitic mass] 24.8 pg 27.5-35.2 [facility] MCHC Auto (RBC) [Mass/Vol]Or dered By: Alina Moran on 03-13-2022 MCHC (RBC) [Mass/Vol] 31.6 g/dL 32.5-35.6 [facility] MCV Auto (RBC) [Entitic vol] Ordered By: Alina Moran on 03-13-2022 MCV (RBC) [Entitic vol] 78.5 fL 83.5-101 [facility] Microcytes LM Ql (Bld)Ordere d By: Alina Moran on 03-13-2022 Microcytes Ql (Bld) Slight [facility] Monocytes Auto (Bld) [#/Vol] Ordered By: Alina Moran on 03-13-2022 Monocytes (Bld) [#/Vol] 0.3 10*3/uL 0.0-0.8 [facility] Monocytes/100 WBC Auto (Bld) Ordered By: Alina Moran on 03-13-2022 Monocytes/100 WBC (Bld) 7.6 % . [facility] Neutrophils Auto (Bld) [#/Vo l]Ordered By: Alina Moran on 03-13-2022 Neutrophils (Bld) [#/Vol] 3.0 10*3/uL 1.8-7.7 [facility] Neutrophils/100 WBC Auto (Bl d)Ordered By: Alina Moran on 03-13-2022 Neutrophils/100 WBC (Bld) 66.1 % . [facility] Platelet adequacy [Presence] in Blood by Light microscopyOrdered By: Alina Moran on 03-13-2022 Platelets LM Ql (Bld) Normal Normal [facility] Platelet mean volume Auto (B ld) [Entitic vol]Ordered By: Alina Moran on 03-13-2022 Platelet mean volume (Bld) [Entitic vol] 8.5 fL 6.6-10.1 [facility] Platelet morphology finding [Identifier] in BloodOrdered By: Alina Moran on 03-13-2022 Platelet morphology finding Nom (Bld) Normal Normal [facility] Platelets Auto (Bld) [#/Vol] Ordered By: Alina Moran on 03-13-2022 Platelets (Bld) [#/Vol] 223 10*3/uL 150-450 [facility] RBC Auto (Bld) [#/Vol]Ordere d By: Alina Moran on 03-13-2022 RBC (Bld) [#/Vol] 5.50 10*6/uL 3.90-5.60 [facility] RBC morphologyOrdered By: Louis Moran on 03-13-2022 RBC morphology finding Nom (Bld) N/A [facility] CULTURE SPUTUMon 03-10-2022 CULTURE SPUTUM Isolate 1 [...] Trimethoprim/Sulfamethox azole <=20 S F Normal [facility] Comment on above: Performed By: #### S PUTCX #### [facility] [address] [place] [address] Dr. Carey Fisher SPUTUM GRAM STAINon 03-07-[address] [facility] Comment on above: Performed By: #### S PUTGS #### [facility] [address] [place] [address] Dr. Carey Fisher DIPHTHEROIDS Normal [facility] Comment on above: Performed By: #### S PUTGS #### [facility] [address] [place] [address] Dr. Carey Fisher EPITHELIALS <25 Normal [facility] Comment on above: Performed By: #### S PUTGS #### [facility] [address] [address] [address] Carey Fisher FUNGAL ELEMENTS MODERATE Normal [facility] Comment on above: Performed By: #### S PUTGS #### [facility] [address] [place] [address] Dr. Carey MARTINEZ NEG BACILLI FEW Normal [facility] Comment on above: Performed By: #### S PUTGS #### [facility] [address] [place] [address] Dr. Carey MARTINEZ NEG DIPPLOCOCCI [facility] Comment on above: Performed By: #### S PUTGS #### [facility] [address] [place] [address] Dr. Carey MARTINEZ POS BACILLI [facility] Comment on above: Performed By: #### S PUTGS #### [facility] [address] [place] [address] Dr. Carey Fisher GRAM POSITIVE COCCI Normal [facility] Comment on above: Performed By: #### S PUTGS #### [facility] [address] [place] [address] Dr. Carey Fisher WBC (Bld) [#/Vol] 10*3/uL Normal [facility] Comment on above: Performed By: #### S PUTGS #### [facility] [address] [place] [address] Dr. Carey Fisher CULTURE SPUTUMon 03-05-2022 CULTURE [...] S F Tetracycline >=16 R F Normal [facility] Comment on above: Performed By: #### S PUTCX #### [facility] [address] [place] [address] Dr. Carey Fisher CULTURE SPUTUMon 03-02-2022 CULTURE [...] S F Oxacillin <=0.25 S F Normal [facility] Comment on above: Performed By: #### S PUTCX #### [facility] [address] [place] [address] Dr. Carey Fisher SPUTUM GRAM STAINon 03-02-20 COMMENTS Normal [facility] Comment on above: Performed By: #### A REAFIV #### [facility] [address] [place] [address] Dr. Carey Fisher DIPHTHEROIDS [facility] Comment on above: Performed By: #### A REAFIV #### [facility] [address] [place] [address] Dr. Carey Fisher EPITHELIALS <[address] [facility] Comment on above: Performed By: #### A REAFIV #### [facility] [address] [address] [address] Carey Fisher FUNGAL ELEMENTS FEW [facility] Comment on above: Performed By: #### A REAFIV #### [facility] [address] [place] [address] Dr. Carey Fisher GRAM NEG BACILLI [facility] Comment on above: Performed By: #### A REAFIV #### [facility] [address] [place] [address] Dr. Carey MARTINEZ NEG DIPPLOCOCCI [facility] Comment on above: Performed By: #### A REAFIV #### [facility] [address] [place] [address] Dr. Carey Fisher GRAM POS BACILLI [facility] Comment on above: Performed By: #### A REAFIV #### [facility] [address] [place] [address] Dr. Carey Fisher GRAM POSITIVE COCCI FEW Normal [facility] Comment on above: Performed By: #### A REAFIV #### [facility] [address] [address] [address] Carey Fisher WBC (Bld) [#/Vol] 10*3/uL Normal [facility] Comment on above: Performed By: #### A REAFIV #### [facility] [address] [address] [address] Carey Fisher SPUTUM GRAM STAINon 02-29-20 COMMENTS Normal [facility] Comment on above: Performed By: #### S PUTGS #### [facility] [address] [address] [address] Carey Fisher DIPHTHEROIDS Normal [facility] Comment on above: Performed By: #### S PUTGS #### [facility] [address] [address] [address] Carey Fisher EPITHELIALS <25 Normal [facility] Comment on above: Performed By: #### S PUTGS #### [facility] [address] [address] [address] Carey Fisher FUNGAL ELEMENTS Normal [facility] Comment on above: Performed By: #### S PUTGS #### [facility] [address] [address] [address] Carey Fisher GRAM NEG BACILLI Normal [facility] Comment on above: Performed By: #### S PUTGS #### [facility] [address] [address] [address] Carey Fisher GRAM NEG DIPPLOCOCCI Normal [facility] Comment on above: Performed By: #### S PUTGS #### [facility] [address] [address] [address] Carey Fisher GRAM POS BACILLI Normal [facility] Comment on above: Performed By: #### S PUTGS #### [facility] [address] [address] [address] Carey Fisher GRAM POSITIVE COCCI RARE Normal [facility] Comment on above: Performed By: #### S PUTGS #### [facility] [address] [address] [address] Carey Fisher WBC (Bld) [#/Vol] 10*3/uL Normal [facility] Comment on above: Performed By: #### S CLARICE #### [facility] [address] [place] [address] Dr. Carey Fisher Respirationon 02-26-2022 Adult depression [...] FERRITIN 73 ug/L Normal 20 - 300 [facility] Comment on above: Performed By: #### F ERRI #### [facility] [address] [place] [address] Ferritin, Serumon 02-24-2022 Ferritin [Mass/Vol] 73 ug/L 20 - 300 [facility] 2100 DO Work Phone: HGB + HCTon 02-24-2022 Hematocrit (Bld) [Volume fraction] 43.6 % Normal 41.0 - 52.0 [facility] Comment on above: Performed By: #### H H #### [address] [id number] Hemoglobin (Bld) [Mass/Vol] 12.6 g/dL Low 13.5 - 17.5 [facility] Comment on above: Performed By: #### H H #### [address] [id number] IRON + TIBCon 02-24-2022 % SATURATION 17 % Low 25 - 45 [facility] Comment on above: Performed By: #### I RAPHAEL #### [address] [id number] Iron [Mass/Vol] 63 ug/dL Normal 35 - 150 [facility] Comment on above: Performed By: #### I KIMBERLYT #### [address] [id number] TIBC 377 ug/dL Normal 240 - 445 [facility] Comment on above: Performed By: #### I RONT #### [address] [id number] Laboratory - Chemistry and C hemistry - challengeon 02-24-2022 Iron [Mass/Vol] 63 ug/dL 35 - 150 [facility] 2100 DO Work Phone: Iron binding capacity [Mass/Vol] 377 ug/dL 240 - 445 [facility] 2100 DO Work Phone: Laboratory - Hematology and Cell countson 02-24-2022 Hematocrit (Bld) [Volume fraction] 43.6 % See Below [facility] [facility] 2100 DO Work Phone: Comment on above: Reference Range: 41. 0 - 52.0 Hemoglobin (Bld) [Mass/Vol] 12.6 g/dL below low threshold See Below [facility] [facility] 2100 DO Work Phone: Comment on above: Reference Range: 13. 5 - 17.5 No Panel Informationon 02-24 17 % below low threshold 25 - 45 [facility] 2100 DO Work Phone: TESTOSTERONE, FREE,DIRECT, T OTALon 02-19-2022 Free Testosterone(Direct) 3.4 pg/mL Critically low 6.6-18.1 [facility] Comment on above: Result Comment: Perf ormed at: BN Performed By: #### T ESTFRD ####[facility] [address] [place], [place] [address]LySindi Fisher Testosterone [Mass/Vol] 560 ng/dL Normal 264-916 [facility] Comment on above: Result Comment: Adul t male reference interval is based on a population of healthy nonobese males (BMI <30) between 19 and 39 years old. Raheem, et.al. JCEM 2017,102;2001-6780. PMID: [id number]. Performed at: CB Performed By: #### T ESTFRD ####[facility] [address] [place], [place] [address]UcSindi Fisher CHEST 2 VIEW PA AND LATon CHEST 2 VIEW PA AND LAT Patient Name: VELIA BAGLEY STUDY: TH CHEST 2 VIEW PA AND LAT; 02/12/2022 10:43 am INDICATION: cough J44.9: Asthma with COPD. COMPARISON: 12/07/2019 ACCESSION NUMBER(S): [id number] ORDERING CLINICIAN: RICH MAGANA FINDINGS: The cardiac silhouette is enlarged. There is a pulmonary vascular congestion and mild edema. No consolidation or effusion seen IMPRESSION: Enlarged cardiac silhouette with mild interstitial edema Electronically signed by: SOLITARIO WESTON MD Normal [facility] Radiologyon 02-12-2022 XR Chest 2 Views Please click on the link to view the study images Normal [facility] [address] [place] Work Phone: XR Chest 2 Views Normal [facility] Work Phone: Tobacco Screening.on 022 Fall [...] Moran on 01-14-2022 Anisocytosis Ql (Bld) Slight [facility] Polychromasia [Presence] in Blood by Light microscopyOrdered By: Alina Moran on 01-14-2022 Polychromasia LM Ql (Bld) Slight [facility] Polychromasia LM Ql (Bld) Polychromasia [Presence] in Blood by Light microscopy [facility] Serum intrinsic factor block ing antibody detection by radioimmunoassay (ARLETTE)Ordered By: Alina Moran on 01-14-2022 Intrinsic factor blocking Ab ARLETTE Ql (S) 1.0 AU/mL 0.0-1.1 [facility] Comment on above: Performed at: [employer] [address] [id number] Director: Cris Ridley MD, Phone: [phone] Intrinsic factor blocking Ab ARLETTE Ql (S) Serum intrinsic factor blocking antibody detection by radioimmunoassay (ARLETTE) 0.0-1.1 [facility] Comment on above: Performed at: [employer] [id number] Director: Cris Ridley MD, Phone: [phone] Serum or plasma gastrin javan urement (mass/volume)Ordered By: Alina Moran on 01-14-2022 Gastrin [Mass/Vol] 1533 pg/mL High [address] Comment on above: Siemens Immulite 200 0 Immunochemiluminometric assay (ICMA)Values obtained with different assay methods or kits cannotbe used interchangeably. Results cannot be interpreted asabsolute evidence of the presence or absence of malignantdisease.Results verified by repeat testing Gastrin [Mass/Vol] Serum or plasma poppy rin measurement (mass/volume) High [address] Comment on above: Siemens Immulite 200 0 Immunochemiluminometric assay (ICMA)Values obtained with different assay methods or kits cannotbe used interchangeably. Results cannot be interpreted asabsolute evidence of the presence or absence of malignantdisease.Results verified by repeat testing Serum parietal cell antibody assay (units/volume)Ordered By: Alina Moran on 01-14-2022 Parietal cell Ab Qn (S) 15.7 Units 0.0-20.0 [facility] Comment on above: Negative 0.0 - 20.0 Equivocal 20.1 - 24.9 Positive >24.9Parietal Cell Antibodies are found in 90% of patientswith pernicious anemia and 30% of first degreerelatives with pernicious anemia.Performed at: [facility] [address] [place], [place] [id number] Director: Wilfredo Lee PhD, Phone: [phone] Parietal cell Ab Qn (S) Serum parietal cell antibody assay (units/volume) 0.0-20.0 [facility] Comment on above: Negative 0.0 - 20.0 Equivocal 20.1 - 24.9 Positive >24.9Parietal Cell Antibodies are found in 90% of patientswith pernicious anemia and 30% of first degreerelatives with pernicious anemia.Performed at: [facility] [address] [place], [place] [id number] Director: Wilfredo Lee PhD, Phone: [phone] [facility] 01-08-2022 [facility] Office Visit (OTOL ) -------- JAMIEVELIA MENEZES ([id number]) 1960 M Date Time Provider Department 01/08/22 11:30 AM [facility] During your visit today, we recorded [...] brought with him a sleep study from [facility] from February 22, 2020. This showed an [...] sleep apnea. He is seen mostly at [facility] and was recommended to consider hypoglossal nerve stimulation. He does not wish to pursue this therapy at this point. ALLERGIES Allergen Reactions Avocado Swelling Baclofen Other: See Comments Dizziness and full body weakness Candasartan [Other] Rash Chocolate Unknown Ciprofloxacin (Bulk) Anaphylaxis Grass Pollen Unknown Indocin [Indomethac* Rash Ivp Dye [Iodine] Anaphylaxis Penicillins Rash [place] Oil Unknown Propranolol Other: See Comments Severe [...] 4 hours (more content not included)... Normal [facility] Tobacco Screening.on 022 Fall risk assessment a) No falls within the last year [facility] [address] [place] Work Phone: Tobacco use status [facility]PH[facility] b) No [facility] [address] [place] Work Phone: IMMUNOGLOBULIN IGG QUANTITAT IVEon 12-07-2021 Immunoglobulin G, Qn, Serum 1164 mg/dL Normal [id number] [facility] Comment on above: Performed By: #### A REAFIV #### [facility] [address] [address] [address] Carey Fisher CBC AUTO DIFFon 12-06-2021 BASO # 0.0 103/ul Normal 0.0-0.1 [facility] Comment on above: Performed By: #### C BC ####[facility] [address] [address]DrSindi Fisher Basophils/100 WBC (Bld) 0.3 % Normal 0.2-2.0 [facility] Comment on above: Performed By: #### C BC ####[facility] [address] [address]Dr. Carey Fisher EO # 0.0 103/ul Normal 0.0-0.7 [facility] Comment on above: Performed By: #### C BC ####[facility] [address] [id number]. Carey Fisher Eosinophils/100 WBC (Bld) 0.0 % Critically low 0.9-7.0 [facility] Comment on above: Performed By: #### C BC ####[facility] [address] [id number] Fisher Erythrocyte distribution width (RBC) [Ratio] 19.6 % Critically high 11.0-15.0 [facility] Comment on above: Performed By: #### C BC ####[facility] [address]hi[address] [address]DrSindi Fisher Hematocrit (Bld) [Volume fraction] 31.9 % Critically low 42.0-54.0 [facility] Comment on above: Performed By: #### C BC ####[facility] An[address]xiemfgn[address] [id number]. Carey Fisher Hemoglobin (Bld) [Mass/Vol] 9.6 g/dL Critically low 14.0-18.0 [facility] Comment on above: Performed By: #### C BC ####[facility] [address]aeh[address] [address]Dr. Carey Fisher IG # 0.05 10e3/ul Critically high 0.00-0.03 [facility] Comment on above: Performed By: #### C BC ####[facility] [address] [address]Dr. Carey Fisher IG % 0.7 % Critically high 0.0-0.5 [facility] Comment on above: Performed By: #### C BC ####[facility] [address] [place], [place] [address]Dr. Carey Fisher LYMPH # 1.9 103/ul Normal 1.2-3.8 [facility] Comment on above: Performed By: #### C BC ####[facility] [address] [address]Dr. Carey Fisher Lymphocytes/100 WBC (Bld) 25.8 % Normal 20.5-60.0 [facility] Comment on above: Performed By: #### C BC ####[facility] [address]fsepyt[address] [address]Dr. Carey Fisher MANUAL DIFF REQ NO Normal [facility] Comment on above: Performed By: #### C BC ####[facility] [address] [place], [place] [address]Dr. Carey Fisher MCH (RBC) [Entitic mass] 21.3 pg Critically low 25.9-34.0 [facility] Comment on above: Performed By: #### C BC ####[facility] [address]jp[address] [place], [place] [address]Dr. Carey Fisher MCHC (RBC) [Mass/Vol] 30.1 g/dL Normal 29.9-35.2 [facility] Comment on above: Performed By: #### C BC ####[facility] [address]poib[address] [id number]. Carey Fisher MCV (RBC) [Entitic vol] 70.9 fL Critically low 80.0-94.0 [facility] Comment on above: Performed By: #### C BC ####[facility] [address]psbyl[address] [address]Dr. Carey Fisher MONO # 0.6 103/ul Normal 0.3-0.8 [facility] Comment on above: Performed By: #### C BC ####[facility] I[address]zrchfub[address] [address]Dr. Carey Fisher Monocytes/100 WBC (Bld) 8.2 % Normal 1.7-12.0 [facility] Comment on above: Performed By: #### C BC ####[facility] M[address] [place], [place] [id number]. Carey Fisher NEUT # 4.7 103/ul Normal 1.4-6.5 [facility] Comment on above: Performed By: #### C BC ####[facility] [address]eq[address] [place], [place] [address]Dr. Carey Fisher Neutrophils/100 WBC (Bld) 65.0 % Normal 43.0-75.0 [facility] Comment on above: Performed By: #### C BC ####[facility] [address]asfe[address] [id number]. Carey Fisher Platelet mean volume (Bld) [Entitic vol] 9.5 fL Normal 9.5-13.5 [facility] Comment on above: Performed By: #### C BC ####[facility] [address]yznu[address] [address]Dr. Carey Fisher PLT 279 103/ul Normal 150-450 [facility] Comment on above: Performed By: #### C BC ####[facility] Anryylhfcl[address] [phone]. Carey Fisher RBC 4.50 106/ul Critically low 4.70-6.10 [facility] Comment on above: Performed By: #### C BC ####[facility] [address]qkjakt[address] [address]Dr. Carey Fisher WBC 7.2 103/ul Normal 4.0-11.0 [facility] Comment on above: Performed By: #### C BC ####[facility] [address]uotw[address] [address]Dr. Carey Fisher PROF 14(COMP METB)on 022 Albumin [Mass/Vol] 3.5 g/dL Normal 3.4-5.0 [facility] Comment on above: Performed By: #### C MP ####[facility] [address]vfic[address] [address]Dr. Carey Fisher Albumin/Globulin [Mass ratio] 1.0 {ratio} Normal [facility] Comment on above: Performed By: #### C MP ####[facility] [address]csa[address] [address]Dr. Carey Fisher ALP [Catalytic activity/Vol] 115 U/L Normal 46-116 [facility] Comment on above: Performed By: #### C MP ####[facility] [address]vclit[address] [address]Dr. Carey Fisher ALT [Catalytic activity/Vol] 15 U/L Critically low 16-63 [facility] Comment on above: Performed By: #### C MP ####[facility] [address]omkeuh[address] [address]Dr. Carey Fisher Anion gap [Moles/Vol] 17.9 mmol/L Normal [facility] Comment on above: Performed By: #### C MP ####[facility] [address] [address]Dr. Carey Fisher AST [Catalytic activity/Vol] 16 U/L Normal 15-37 [facility] Comment on above: Performed By: #### C MP ####[facility] [address] [address]Dr. Carey Fisher Bilirubin [Mass/Vol] 0.2 mg/dL Normal 0.2-1.0 [facility] Comment on above: Performed By: #### C MP ####[facility] [address]fceucu[address] [address]Dr. Carey Fisher Calcium [Mass/Vol] 8.3 mg/dL Critically low 8.5-10.1 [facility] Comment on above: Performed By: #### C MP ####[facility] [address]jjp[address] [address]Dr. Carey Fisher Chloride [Moles/Vol] 106 mmol/L Normal 98-107 [facility] Comment on above: Performed By: #### C MP ####[facility] I[address]znkuoq[address] [address]Dr. Carey Fisher CO2 [Moles/Vol] 19.3 mmol/L Critically low 21.0-32.0 [facility] Comment on above: Performed By: #### C MP ####[facility] [address]ogwlo[address] [address]Dr. Carey Fisher Creatinine [Mass/Vol] 1.28 mg/dL Normal 0.70-1.30 [facility] Comment on above: Performed By: #### C MP ####[facility] [address]labqdhs[address] [address]Dr. Carey Fisher EGFR-AF CITIZ[place] >60 Normal >=60 [facility] Comment on above: Performed By: #### C MP ####[facility] [address] [address]Dr. Carey Fisher EGFR-NON AF [place]IZEN [place] 57 mL/min/1.73m2 Critically low >=60 [facility] Comment on above: Performed By: #### C MP ####[facility] [address]kxks[address] [phone]. Carey Fisher Globulin (S) [Mass/Vol] 3.5 g/dL Normal [facility] Comment on above: Performed By: #### C MP ####[facility] [address]ox[address] [address]Dr. Carey Fisher Glucose [Mass/Vol] 86 mg/dL Normal 74-106 [facility] Comment on above: Performed By: #### C MP ####[facility] [address]emxynyk[address] [address]Dr. Carey Fisher Potassium [Moles/Vol] 4.2 mmol/L Normal 3.5-5.1 [facility] Comment on above: Performed By: #### C MP ####[facility] [address] [address]Dr. Carey Fisher Protein [Mass/Vol] 7.0 g/dL Normal 6.4-8.2 [facility] Comment on above: Performed By: #### C MP ####[facility] [address]wcbw[address] [address]Dr. Carey Fisher Sodium [Moles/Vol] 139 mmol/L Normal 136-145 [facility] Comment on above: Performed By: #### C MP ####[facility] [address] [place], [place] [address]Dr. Carey Fisher Urea nitrogen [Mass/Vol] 29.0 mg/dL Critically high 7.0-18.0 [facility] Comment on above: Performed By: #### C MP ####[facility] Calib[address] [place], [place] [address]Dr. Carey Fisher Urea nitrogen/Creatinine [Mass ratio] 22.7 mg/mg Normal [facility] Comment on above: Performed By: #### C MP ####[facility] Yhemabrcwq[address] [place], [place] [address]Dr. Carye Fisher IMMUNOGLOBULIN IGG QUANTITAT IVEon 12-04-2021 Immunoglobulin G, Qn, Serum 1250 mg/dL Normal 603-1613 [facility] Comment on above: Performed By: #### I MIGGQN ####[facility] [address] [address]Dr. Carey Phillip FERRITINon 12-03-2021 Ferritin [Mass/Vol] 10.0 ng/mL Critically low 26.0-388.0 [facility] Comment on above: Performed By: #### B 12FOL, FERR, FETIBC ####[facility] [address] [address]Dr. Carey Fisher IRON AND TIBCon 08-02-2022 % SATURATION 4.9 % Normal [facility] Comment on above: Performed By: #### B 12FOL, FERR, FETIBC ####[facility] [address] [id number]. Carey Fisher Iron [Mass/Vol] 17.0 ug/dL Critically low 65.0-175.[address] [facility] Comment on above: Performed By: #### B 12FOL, FERR, FETIBC ####[facility] [address]wo[address] [address]Dr. Carey Fisher TIBC DIRECT 349.0 ug/dL Normal 250.0-450.0 [facility] Comment on above: Performed By: #### Dary 12FOL, FERR, FETIBC ####[facility] [address] [address]Dr. Carey Fisher VIT B12 AND FOLATEon 022 Cobalamin (Vitamin B12) [Mass/Vol] 446.0 pg/mL Normal 193.0-986.0 [facility] Comment on above: Performed By: #### Dary 12FOL, FERR, FETIBC ####[facility] [address] [id number]. Carey Fisher FOLATE 2.50 ng/mL Critically low 8.60-58.90 [facility] Comment on above: Performed By: #### Dary 12FOL, FERR, FETIBC ####[facility] [address] [address]Dr. Carey Fisher XR KNEE CARMEN 4V or [...] RICH MORAN Date: 2021-12-03 20:53 Normal [facility] Complete Blood Count + Diffe rentialon 11-29-2021 Basophils/100 WBC (Bld) 0.3 % 0.0 - 2.0 [employer] 2100 DO Work Phone: Erythrocyte distribution width (RBC) [Ratio] 19.7 % above high threshold See Below [employer] DO Work Phone: Comment on above: Reference Range: 11. 5 - 14.5 Hematocrit (Bld) [Volume fraction] 34.9 % below low threshold See Below [employer] DO Work Phone: Comment on above: Reference Range: 41. 0 - 52.0 Hemoglobin (Bld) [Mass/Vol] 9.9 g/dL below low threshold See Below [employer] 2100 DO Work Phone: Comment on above: Reference Range: 13. 5 - 17.5 Lymphocytes/100 WBC (Bld) 17.7 % See Below [employer] 2100 DO Work Phone: Comment on above: Reference Range: 13. 0 - 44.0 MCHC (RBC) [Mass/Vol] 28.4 g/dL below low threshold See Below [employer] DO Work Phone: Comment on above: Reference Range: 32. 0 - 36.0 MCV (RBC) [Entitic vol] 74 fL below low threshold 80 - 100 MPTucker Blair DO Work Phone: Monocytes/100 WBC (Bld) 9.1 % 2.0 - 10.0 [employer] DO Work Phone: Neutrophils/100 WBC (Bld) 72.4 % See Below [employer] DO Work Phone: Comment on above: Reference Range: 40. 0 - 80.0 Platelets (Bld) [#/Vol] 256 10*3/uL 150 - 450 [employer] 2100 DO Work Phone: RBC (Bld) [#/Vol] 4.74 {x10E12/L} See Below [employer] DO Work Phone: Comment on above: Reference Range: 4.5 0 - 5.90 WBC (Bld) [#/Vol] 7.6 10*3/uL 4.4 - 11.3 -All [facility] [facility] -[employer] DO Work Phone: Complete Blood Count + Differential 0.02 {x10E9/L} See Below [employer] DO Work Phone: Comment on above: Reference Range: 0.0 0 - 0.10 Complete Blood Count + Differential 0.69 {x10E9/L} See Below [employer] DO Work Phone: Comment on above: Reference Range: 0.1 0 - 1.00 Complete Blood Count + Differential 1.34 {x10E9/L} See Below [employer] DO Work Phone: Comment on above: Reference Range: 1.2 0 - 4.80 Complete Blood Count + Differential 5.48 {x10E9/L} See Below [employer] DO Work Phone: Comment on above: Reference Range: 1.2 0 - 7.70 Complete Blood Count + Differential 0.5 % 0.0 - 0.9 [employer] DO Work Phone: Comment on above: Immature Granulocyte Count (IG) includes promyelocytes, myelocytes and metamyelocytes but does not include bands. Percent differential counts (%) should be interpreted in the context of the absolute cell counts (cells/L). Immunoglobulin G Level, Seru mon 11-29-2021 IgG [Mass/Vol] 1320 mg/dL 700 - 1600 -Allergi [facility] -[place] 2100 DO Work Phone: Comment on above: MONOCLONAL PROTEINS MAY CAUSE FALSELY LOWRESULTS IN THIS ASSAY. SERUM PROTEINELECTROPHORESIS SHOULD BE DONE THEFIRST TEST TO EVALUATE MONOCLONAL GAMMOPATHY. CBC AUTO DIFFon 11-28-2021 BASO # 0.0 103/ul Normal 0.0-0.1 [facility] Comment on above: Performed By: #### S PUTGS #### [facility] [address] [place] [address] Dr. Carey Fisher Basophils/100 WBC (Bld) 0.3 % Normal 0.2-2.0 [facility] Comment on above: Performed By: #### S PUTGS #### [facility] [address] [place] [address] Dr. Carey Fisher EO # 0.0 103/ul Normal 0.0-0.7 [facility] Comment on above: Performed By: #### S PUTGS #### [facility] [address] [place] [address] Dr. Carey Fisher Eosinophils/100 WBC (Bld) 0.0 % Critically low 0.9-7.0 [facility] Comment on above: Performed By: #### S PUTGS #### [facility] [address] [place] [address] Dr. Carey Fisher Erythrocyte distribution width (RBC) [Ratio] 19.2 % Critically high 11.0-15.0 [facility] Comment on above: Performed By: #### S PUTGS #### [facility] [address] [place] [address] Dr. Carey Fisher Hematocrit (Bld) [Volume fraction] 35.8 % Critically low 42.0-54.0 [facility] Comment on above: Performed By: #### S PUTGS #### [facility] [address] [place] [address] Dr. Carey Fisher Hemoglobin (Bld) [Mass/Vol] 10.4 g/dL Critically low 14.0-18.0 [facility] Comment on above: Performed By: #### S PUTGS #### [facility] [address] [address] [address] Carey Fisher IG # 0.03 10e3/ul Normal 0.00-0.03 [facility] Comment on above: Performed By: #### S PUTGS #### [facility] [address] [address] [address] Carey Fisher IG % 0.5 % Normal 0.0-0.5 [facility] Comment on above: Performed By: #### S PUTGS #### [facility] [address] [address] [address] Carey Fisher LYMPH # 1.5 103/ul Normal 1.2-3.8 [facility] Comment on above: Performed By: #### S PUTGS #### [facility] [address] [place] [address] Dr. Carey Fisher Lymphocytes/100 WBC (Bld) 26.1 % Normal 20.5-60.0 [facility] Comment on above: Performed By: #### S PUTGS #### [facility] [address] [place] [address] Dr. Carey Fisher MANUAL DIFF REQ NO Normal [facility] Comment on above: Performed By: #### S PUTGS #### [facility] [address] [address] [address] Carey Fisher MCH (RBC) [Entitic mass] 20.6 pg Critically low 25.9-34.0 [facility] Comment on above: Performed By: #### S PUTGS #### [facility] [address] [address] [address] Carey Fisher MCHC (RBC) [Mass/Vol] 29.1 g/dL Critically low 29.9-35.2 [facility] Comment on above: Performed By: #### S PUTGS #### [facility] [address] [place] [address] Dr. Carey Fisher MCV (RBC) [Entitic vol] 70.9 fL Critically low 80.0-94.0 [facility] Comment on above: Performed By: #### S PUTGS #### [facility] [address] [address] [address] Carey Fisher MONO # 0.4 103/ul Normal 0.3-0.8 [facility] Comment on above: Performed By: #### S PUTGS #### [facility] [address] [place] [address] Dr. Carey Fisher Monocytes/100 WBC (Bld) 6.6 % Normal 1.7-12.0 [facility] Comment on above: Performed By: #### S PUTGS #### [facility] [address] [place] [address] Dr. Carey Fisher NEUT # 3.9 103/ul Normal 1.4-6.5 [facility] Comment on above: Performed By: #### S PUTGS #### [facility] [address] [place] [address] Dr. Carey Fisher Neutrophils/100 WBC (Bld) 66.5 % Normal 43.0-75.0 [facility] Comment on above: Performed By: #### S PUTGS #### [facility] [address] [place] [address] Dr. Carey Fisher Platelet mean volume (Bld) [Entitic vol] 9.7 fL Normal 9.5-13.5 [facility] Comment on above: Performed By: #### S PUTGS #### [facility] [address] [place] [address] Dr. Carey Fisher PLT 247 103/ul Normal 150-450 [facility] Comment on above: Performed By: #### S PUTGS #### [facility] [address] [place] [address] Dr. Carey Fisher RBC 5.05 106/ul Normal 4.70-6.10 [facility] Comment on above: Performed By: #### S PUTGS #### [facility] [address] [place] [address] Dr. Carey Fisher WBC 5.9 103/ul Normal 4.0-11.0 [facility] Comment on above: Performed By: #### S PUTGS #### [facility] [address] [place] [address] Dr. Carey Fisher PROF CHEM 8 (BAS METB)on Anion gap [Moles/Vol] 11.2 mmol/L Normal [facility] Comment on above: Performed By: #### B MP ####[facility] [address] [address]Dr. Carey Fisher Calcium [Mass/Vol] 8.4 mg/dL Critically low 8.5-10.1 [facility] Comment on above: Performed By: #### B MP ####[facility] [address] [address]Dr. Carey Fisher Chloride [Moles/Vol] 107 mmol/L Normal 98-107 [facility] Comment on above: Performed By: #### B MP ####[facility] [address] [address]Dr. Carey Fisher CO2 [Moles/Vol] 23.5 mmol/L Normal 21.0-32.0 [facility] Comment on above: Performed By: #### B MP ####[facility] [address] [place], [place] [address]Dr. Carey Fisher Creatinine [Mass/Vol] 1.09 mg/dL Normal 0.70-1.30 [facility] Comment on above: Performed By: #### B MP ####[facility] [address] [address]Dr. Carey Fisher EGFR-AF [place]IZ[place] >60 Normal >=60 [facility] Comment on above: Performed By: #### B MP ####[facility] [address] [address]Dr. Craey Fisher EGFR-NON AF [place]IZ[place] OF [place] >60 Normal >=60 [facility] Comment on above: Performed By: #### B MP ####[facility] [address]roxdv[address] [address]Dr. Carey Fisher Glucose [Mass/Vol] 101 mg/dL Normal 74-106 [facility] Comment on above: Performed By: #### B MP ####[facility] [address] [place], [place] [address]Dr. Carey Fisher Potassium [Moles/Vol] 3.7 mmol/L Normal 3.5-5.1 [facility] Comment on above: Performed By: #### B MP ####[facility] [address] [place], [place] [address]Up. Carey Fisher Sodium [Moles/Vol] 138 mmol/L Normal 136-145 [facility] Comment on above: Performed By: #### B MP ####[facility] [address] [place], [place] [address]Uh. Carey Fisher Urea nitrogen [Mass/Vol] 20.0 mg/dL Critically high 7.0-18.0 [facility] Comment on above: Performed By: #### B MP ####[facility] [address] [place], [place] [address]Vl. Carey Fisher Urea nitrogen/Creatinine [Mass ratio] 18.3 mg/mg Normal [facility] Comment on above: Performed By: #### B MP ####[facility] [address]xvof[address] [place], [place] [address]Mg. Carey Fisher XR CHEST 2 Von 11-28-2021 [...] EFRAÍN RODRIGES Date: 2021-11-27 23:20 Normal [facility] XR NECK SOFT TISSUEon 2021 XR NECK [...] EFRAÍN RODRIGES Date: 2021-11-27 23:22 Normal [facility] CBC AUTO DIFFon 10-07-2021 BASO # 0.0 103/ul Normal 0.0-0.1 [facility] Comment on above: Performed By: #### A REAFIV #### [facility] [address] [address] [address] Carey Fisher Basophils/100 WBC (Bld) 0.1 % Critically low 0.2-2.0 [facility] Comment on above: Performed By: #### A REAFIV #### [facility] [address] [place] [address] Dr. Carey Fisher EO # 0.0 103/ul Normal 0.0-0.7 [facility] Comment on above: Performed By: #### A REAFIV #### [facility] [address] [place] [address] Dr. Carey Fisher Eosinophils/100 WBC (Bld) 0.0 % Critically low 0.9-7.0 [facility] Comment on above: Performed By: #### A REAFIV #### [facility] [address] [place] [address] Dr. Carey Fisher Erythrocyte distribution width (RBC) [Ratio] 19.5 % Critically high 11.0-15.0 [facility] Comment on above: Performed By: #### A REAFIV #### [facility] [address] [place] [address] Dr. Carey Fisher Hematocrit (Bld) [Volume fraction] 36.8 % Critically low 42.0-54.0 [facility] Comment on above: Performed By: #### A REAFIV #### [facility] [address] [place] [address] Dr. Carey Fisher Hemoglobin (Bld) [Mass/Vol] 10.5 g/dL Critically low 14.0-18.0 [facility] Comment on above: Performed By: #### A REAFIV #### [facility] [address] [address] [address] Carey Fisher IG # 0.05 10e3/ul Critically high 0.00-0.03 [facility] Comment on above: Performed By: #### A REAFIV #### [facility] [address] [address] [address] Carey Fisher IG % 0.6 % Critically high 0.0-0.5 [facility] Comment on above: Performed By: #### A REAFIV #### [facility] [address] [address] [address] Carey Fisher LYMPH # 2.2 103/ul Normal 1.2-3.8 [facility] Comment on above: Performed By: #### A REAFIV #### [facility] [address] [address] [address] Carey Fisher Lymphocytes/100 WBC (Bld) 26.9 % Normal 20.5-60.0 [facility] Comment on above: Performed By: #### A REAFIV #### [facility] [address] [address] [address] Carey Fisher MANUAL DIFF REQ NO Normal [facility] Comment on above: Performed By: #### A REAFIV #### [facility] [address] [address] [address] Carey Fisher MCH (RBC) [Entitic mass] 21.3 pg Critically low 25.9-34.0 [facility] Comment on above: Performed By: #### A REAFIV #### [facility] [address] [address] [address] Carey Fisher MCHC (RBC) [Mass/Vol] 28.5 g/dL Critically low 29.9-35.2 [facility] Comment on above: Performed By: #### A REAFIV #### [facility] [address] [address] [address] Carey Fisher MCV (RBC) [Entitic vol] 74.6 fL Critically low 80.0-94.0 [facility] Comment on above: Performed By: #### A REAFIV #### [facility] [address] [place] [address] Dr. Carey Fisher MONO # 0.6 103/ul Normal 0.3-0.8 [facility] Comment on above: Performed By: #### A REAFIV #### [facility] [address] [place] [address] Dr. Carey Fisher Monocytes/100 WBC (Bld) 7.2 % Normal 1.7-12.0 [facility] Comment on above: Performed By: #### A REAFIV #### [facility] [address] [place] [address] Dr. Carey Fisher NEUT # 5.4 103/ul Normal 1.4-6.5 [facility] Comment on above: Performed By: #### A REAFIV #### [facility] [address] [place] [address] Dr. Carey Fisher Neutrophils/100 WBC (Bld) 65.2 % Normal 43.0-75.0 [facility] Comment on above: Performed By: #### A REAFIV #### [facility] [address] [place] [address] Dr. Carey Fisher Platelet mean volume (Bld) [Entitic vol] 9.2 fL Critically low 9.5-13.5 [facility] Comment on above: Performed By: #### A REAFIV #### [facility] [address] [place] [address] Dr. Carey Fisher PLT 263 103/ul Normal 150-450 [facility] Comment on above: Performed By: #### A REAFIV #### [facility] [address] [place] [address] Dr. Carey Fisher RBC 4.93 106/ul Normal 4.70-6.10 [facility] Comment on above: Performed By: #### A REAFIV #### [facility] [address] [place] [address] Dr. Carey iFsher WBC 8.2 103/ul Normal 4.0-11.0 [facility] Comment on above: Performed By: #### A REAFIV #### [facility] [address] [place] [address] Dr. Carey Fisher FERRITINon 10-07-2021 Ferritin [Mass/Vol] 11.0 ng/mL Critically low 26.0-388.0 [facility] Comment on above: Performed By: #### S PUTGS #### [facility] [address] [place] [address] Dr. Carey Fisher PROF CHEM 8 (BAS METB)on Anion gap [Moles/Vol] 12.4 mmol/L Normal [facility] Comment on above: Performed By: #### B MP #### [facility] [address] [place] [address] Dr. Carey Fisher Calcium [Mass/Vol] 8.2 mg/dL Critically low 8.5-10.1 [facility] Comment on above: Performed By: #### B MP #### [facility] [address] [place] [address] Dr. Carey Fisher Chloride [Moles/Vol] 106 mmol/L Normal 98-107 [facility] Comment on above: Performed By: #### B MP #### [facility] [address] [place] [address] Dr. Carey Fisher CO2 [Moles/Vol] 23.2 mmol/L Normal 21.0-32.0 [facility] Comment on above: Performed By: #### B MP #### [facility] [address] [place] [address] Dr. Carey Fisher Creatinine [Mass/Vol] 1.23 mg/dL Normal 0.70-1.30 [facility] Comment on above: Performed By: #### B MP #### [facility] [address] [place] [address] Dr. Carey Fisher EGFR-AF [place]IZEN [place] >60 Normal >=60 [facility] Comment on above: Performed By: #### B MP #### [facility] [address] [place] [address] Dr. Carey Fisher EGFR-NON AF [place]IZEN [place] 60 mL/min/1.73m2 Normal >=60 [facility] Comment on above: Performed By: #### B MP #### [facility] [address] [place] [address] Dr. Carey Fisher Glucose [Mass/Vol] 107 mg/dL Critically high 74-106 T [facility] Comment on above: Performed By: #### B MP #### [facility] [address] [place] [address] Dr. Carey Fisher Potassium [Moles/Vol] 3.6 mmol/L Normal 3.5-5.1 [facility] Comment on above: Performed By: #### B MP #### [facility] [address] [place] [address] Dr. Carey Fisher Sodium [Moles/Vol] 138 mmol/L Normal 136-145 [facility] Comment on above: Performed By: #### B MP #### [facility] [address] [place] [address] Dr. Carey Fisher Urea nitrogen [Mass/Vol] 31.0 mg/dL Critically high 7.0-18.0 [facility] Comment on above: Performed By: #### B MP #### [facility] [address] [place] [address] Dr. Carey Fisher Urea nitrogen/Creatinine [Mass ratio] 25.2 mg/mg Normal [facility] Comment on above: Performed By: #### B MP #### [facility] [address] [place] [address] Dr. Carey Fisher VITAMIN B12on 10-07-2021 Cobalamin (Vitamin B12) [Mass/Vol] 594.0 pg/mL Normal 193.0-986.0 [facility] Comment on above: Performed By: #### S PUTGS #### [facility] [address] [place] [address] Dr. Carey Fisher IMMUNOGLOBULIN IGG QUANTITAT IVEon 09-21-2021 Immunoglobulin G, Qn, Serum 1204 mg/dL Normal 603-1613 [facility] Comment on above: Performed By: #### I MIGGQN ####[facility] [address] [place] [address]Dr. Carey Fisher CBC AUTO DIFFon 09-19-2021 BASO # 0.0 103/ul Normal 0.0-0.1 [facility] Comment on above: Performed By: #### S PUTGS #### [facility] [address] [address] [address] Carey Fisher Basophils/100 WBC (Bld) 0.2 % Normal 0.2-2.0 [facility] Comment on above: Performed By: #### S PUTGS #### [facility] [address] [address] [address] Carey Fisher EO # 0.0 103/ul Normal 0.0-0.7 [facility] Comment on above: Performed By: #### S PUTGS #### [facility] [address] [place] [address] Dr. Carey Fisher Eosinophils/100 WBC (Bld) 0.0 % Critically low 0.9-7.0 [facility] Comment on above: Performed By: #### S PUTGS #### [facility] [address] [address] [address] Carey Fisher Erythrocyte distribution width (RBC) [Ratio] 18.6 % Critically high 11.0-15.0 [facility] Comment on above: Performed By: #### S PUTGS #### [facility] [address] [address] [address] Carey Fisher Hematocrit (Bld) [Volume fraction] 31.8 % Critically low 42.0-54.0 [facility] Comment on above: Performed By: #### S PUTGS #### [facility] [address] [address] [address] Carey Fisher Hemoglobin (Bld) [Mass/Vol] 9.1 g/dL Critically low 14.0-18.0 [facility] Comment on above: Performed By: #### S PUTGS #### [facility] [address] [address] [address] Carey Fisher IG # 0.02 10e3/ul Normal 0.00-0.03 [facility] Comment on above: Performed By: #### S PUTGS #### [facility] [address] [address] [address] Carey Fisher IG % 0.3 % Normal 0.0-0.5 [facility] Comment on above: Performed By: #### S PUTGS #### [facility] [address] [address] [address] Carey Fisher LYMPH # 1.0 103/ul Critically low 1.2-3.8 [facility] Comment on above: Performed By: #### S PUTGS #### [facility] [address] [address] [address] Carey Fisher Lymphocytes/100 WBC (Bld) 15.4 % Critically low 20.5-60.0 [facility] Comment on above: Performed By: #### S PUTGS #### [facility] [address] [address] [address] Carey Fisher MANUAL DIFF REQ NO Normal [facility] Comment on above: Performed By: #### S PUTGS #### [facility] [address] [address] [address] Carey Fisher MCH (RBC) [Entitic mass] 21.3 pg Critically low 25.9-34.0 [facility] Comment on above: Performed By: #### S PUTGS #### [facility] [address] [address] [address] Carey Fisher MCHC (RBC) [Mass/Vol] 28.6 g/dL Critically low 29.9-35.2 [facility] Comment on above: Performed By: #### S PUTGS #### [facility] [address] [address] [address] Carey Fisher MCV (RBC) [Entitic vol] 74.3 fL Critically low 80.0-94.0 [facility] Comment on above: Performed By: #### S PUTGS #### [facility] [address] [address] [address] Carey Fisher MONO # 0.3 103/ul Normal 0.3-0.8 [facility] Comment on above: Performed By: #### S PUTGS #### [facility] [address] [address] [address] Carey Fisher Monocytes/100 WBC (Bld) 4.4 % Normal 1.7-12.0 [facility] Comment on above: Performed By: #### S PUTGS #### [facility] [address] [address] [address] Carey Fisher NEUT # 4.9 103/ul Normal 1.4-6.5 [facility] Comment on above: Performed By: #### S PUTGS #### [facility] [address] [address] [address] Carey Fisher Neutrophils/100 WBC (Bld) 79.7 % Critically high 43.0-75.0 [facility] Comment on above: Performed By: #### S PUTGS #### [facility] [address] [address] [address] Carey Fisher Platelet mean volume (Bld) [Entitic vol] 10.3 fL Normal 9.5-13.5 [facility] Comment on above: Performed By: #### S PUTGS #### [facility] [address] [address] [address] Carey Fisher PLT 304 103/ul Normal 150-450 [facility] Comment on above: Performed By: #### S PUTGS #### [facility] [address] [address] [address] Carey Fisher RBC 4.28 106/ul Critically low 4.70-6.10 [facility] Comment on above: Performed By: #### S PUTGS #### [facility] [address] [address] [address] Carey Fisher WBC 6.2 103/ul Normal 4.0-11.0 [facility] Comment on above: Performed By: #### S PUTGS #### [facility] [address] [address] [address] Carey Fisher PROF 14(COMP METB)on 022 Albumin [Mass/Vol] 3.7 g/dL Normal 3.4-5.0 [facility] Comment on above: Performed By: #### C MP ####[facility] [address] [place] [address]Dr. Carey Fisher Albumin/Globulin [Mass ratio] 1.1 {ratio} Normal [facility] Comment on above: Performed By: #### C MP ####[facility] [address] [place] [address]Dr. Jennyes Pihllip ALP [Catalytic activity/Vol] 92 U/L Normal 46-116 [facility] Comment on above: Performed By: #### C MP ####[facility] [address] [place], [place] [address]Dr. Carey Fisher ALT [Catalytic activity/Vol] 21 U/L Normal 16-63 [facility] Comment on above: Performed By: #### C MP ####[facility] [address] [place], [place] [address]Dr. Carey Fisher Anion gap [Moles/Vol] 17.5 mmol/L Normal [facility] Comment on above: Performed By: #### C MP ####[facility] [address] [place], [place] [address]Dr. Carey Fisher AST [Catalytic activity/Vol] 33 U/L Normal 15-37 [facility] Comment on above: Performed By: #### C MP ####[facility] [address] [place], [place] [address]Dr. Carey Fisher Bilirubin [Mass/Vol] 0.3 mg/dL Normal 0.2-1.0 [facility] Comment on above: Performed By: #### C MP ####[facility] [address] [place], [place] [address]Dr. Carey Fisher Calcium [Mass/Vol] 8.3 mg/dL Critically low 8.5-10.1 [facility] Comment on above: Performed By: #### C MP ####[facility] [address] [place] [address]Dr. Carey Fisher Chloride [Moles/Vol] 107 mmol/L Normal 98-107 [facility] Comment on above: Performed By: #### C MP ####[facility] [address] [place] [address]Dr. Carey Fisher CO2 [Moles/Vol] 20.4 mmol/L Critically low 21.0-32.0 [facility] Comment on above: Performed By: #### C MP ####[facility] [address] [place] [address]Dr. Carey Fisher Creatinine [Mass/Vol] 1.16 mg/dL Normal 0.70-1.30 [facility] Comment on above: Performed By: #### C MP ####[facility] [address] [place] [address]Dr. Carey Fisher EGFR-AF [place] >60 Normal >=60 [facility] Comment on above: Performed By: #### C MP ####[facility] [address] [place], [place] [address]Dr. Carey Fisher EGFR-NON AF [place]IZ[place] OF [place] >60 Normal >=60 [facility] Comment on above: Performed By: #### C MP ####[facility] [address] [place], [place] [address]Dr. Carey Fisher Globulin (S) [Mass/Vol] 3.3 g/dL Normal [facility] Comment on above: Performed By: #### C MP ####[facility] [address] [place], [place] [address]Dr. Carey Fisher Glucose [Mass/Vol] 90 mg/dL Normal 74-106 [facility] Comment on above: Performed By: #### C MP ####[facility] [address] [place] [address]Dr. Carey Fisher Potassium [Moles/Vol] 4.6 mmol/L Normal 3.5-5.1 [facility] Comment on above: Performed By: #### C MP ####[facility] [address] [place], [place] [address]Dr. Carey Fisher Protein [Mass/Vol] 7.0 g/dL Normal 6.4-8.2 [facility] Comment on above: Performed By: #### C MP ####[facility] [address] [place] [id number]. Carey Fisher Sodium [Moles/Vol] 138 mmol/L Normal 136-145 [facility] Comment on above: Performed By: #### C MP ####[facility] [address] [place] [address]Dr. Carey Fisher Urea nitrogen [Mass/Vol] 22.0 mg/dL Critically high 7.0-18.0 [facility] Comment on above: Performed By: #### C MP ####[facility] [address] [place] [id number]. Carey Phillip Urea nitrogen/Creatinine [Mass ratio] 19.0 mg/mg Normal [facility] Comment on above: Performed By: #### C MP ####[facility] [address] [place] [address]Dr. Carey Fisher Respirationon 09-16-2021 Heart Rate Regular [...] 09-12-2021 BASO # 0.0 103/ul Normal 0.0-0.1 [facility] Comment on above: Performed By: #### C BC ####[facility] [address] [place] [id number]. Carey Phillip Basophils/100 WBC (Bld) 0.0 % Critically low 0.2-2.0 [facility] Comment on above: Performed By: #### C BC ####[facility] [address] [place] [id number]. Carey Phillip EO # 0.0 103/ul Normal 0.0-0.7 [facility] Comment on above: Performed By: #### C BC ####[facility] [address] [place] [address]Dr. Carey Fisher Eosinophils/100 WBC (Bld) 0.0 % Critically low 0.9-7.0 [facility] Comment on above: Performed By: #### C BC ####[facility] [address] [place], [place] [address]Dr. Carey Fisher Erythrocyte distribution width (RBC) [Ratio] 18.3 % Critically high 11.0-15.0 [facility] Comment on above: Performed By: #### C BC ####[facility] [address] [place], [place] [address]Dr. Carey Fisher Hematocrit (Bld) [Volume fraction] 32.5 % Critically low 42.0-54.0 [facility] Comment on above: Performed By: #### C BC ####[facility] [address] [place], [place] [address]Dr. Carey Fisher Hemoglobin (Bld) [Mass/Vol] 9.4 g/dL Critically low 14.0-18.0 [facility] Comment on above: Performed By: #### C BC ####[facility] [address] [place], [place] [address]Dr. Carey Fisher IG # 0.02 10e3/ul Normal 0.00-0.03 [facility] Comment on above: Performed By: #### C BC ####[facility] [address] [place], [place] [address]Dr. Carey Fisher IG % 0.4 % Normal 0.0-0.5 [facility] Comment on above: Performed By: #### C BC ####[facility] [address] [place], [place] [address]Dr. Carey Fisher LYMPH # 1.7 103/ul Normal 1.2-3.8 [facility] Comment on above: Performed By: #### C BC ####[facility] [address] [place], [place] [address]Dr. Carey Fisher Lymphocytes/100 WBC (Bld) 33.7 % Normal 20.5-60.0 [facility] Comment on above: Performed By: #### C BC ####[facility] [address] [place] [address]Dr. Carey Fisher MANUAL DIFF REQ NO Normal [facility] Comment on above: Performed By: #### C BC ####[facility] [address] [place] [id number]. Carey Fisher MCH (RBC) [Entitic mass] 21.5 pg Critically low 25.9-34.0 [facility] Comment on above: Performed By: #### C BC ####[facility] [address] [place] [address]Dr. Carey Fisher MCHC (RBC) [Mass/Vol] 28.9 g/dL Critically low 29.9-35.2 [facility] Comment on above: Performed By: #### C BC ####[facility] [address] [place], [place] [address]Dr. Carey Fisher MCV (RBC) [Entitic vol] 74.2 fL Critically low 80.0-94.0 [facility] Comment on above: Performed By: #### C BC ####[facility] [address] [place], [place] [address]Dr. Carey Fisher MONO # 0.5 103/ul Normal 0.3-0.8 [facility] Comment on above: Performed By: #### C BC ####[facility] [address] [place], [place] [address]Dr. Carey Fisher Monocytes/100 WBC (Bld) 10.5 % Normal 1.7-12.0 [facility] Comment on above: Performed By: #### C BC ####[facility] [address] [place], [place] [address]Dr. Carey Fisher NEUT # 2.8 103/ul Normal 1.4-6.5 [facility] Comment on above: Performed By: #### C BC ####[facility] [address] [place], [place] [address]Dr. Carey Fisher Neutrophils/100 WBC (Bld) 55.4 % Normal 43.0-75.0 [facility] Comment on above: Performed By: #### C BC ####[facility] [address] [place] [address]Dr. Carey Fisher Platelet mean volume (Bld) [Entitic vol] 9.4 fL Critically low 9.5-13.5 [facility] Comment on above: Performed By: #### C BC ####[facility] [address] [place] [address]Dr. Carey Fisher PLT 289 103/ul Normal 150-450 [facility] Comment on above: Performed By: #### C BC ####[facility] [address] [place] [address]DrSindi Fisher RBC 4.38 106/ul Critically low 4.70-6.10 [facility] Comment on above: Result Comment: 1+ E LLIPTOCYTE 1+ OVALOCYTE Performed By: #### C BC ####[facility] [address] [place] [address]DrSindi Fisher WBC 5.0 103/ul Normal 4.0-11.0 [facility] Comment on above: Performed By: #### C BC ####[facility] [address] [place], [place] [address]Dr. Carey Fisher PROF CHEM 8 (BAS METB)on Anion gap [Moles/Vol] 11.4 mmol/L Normal [facility] Comment on above: Performed By: #### S PUTGS #### [facility] [address] [place] [address] Dr. Carey Fisher Calcium [Mass/Vol] 8.2 mg/dL Critically low 8.5-10.1 [facility] Comment on above: Performed By: #### S PUTGS #### [facility] [address] [place] [address] Dr. Carey Fisher Chloride [Moles/Vol] 106 mmol/L Normal 98-107 [facility] Comment on above: Performed By: #### S PUTGS #### [facility] [address] [place] [address] Dr. Carey Fisher CO2 [Moles/Vol] 24.2 mmol/L Normal 21.0-32.0 [facility] Comment on above: Performed By: #### S PUTGS #### [facility] [address] [address] [address] Carey Fisher Creatinine [Mass/Vol] 1.12 mg/dL Normal 0.70-1.30 [facility] Comment on above: Performed By: #### S PUTGS #### [facility] [address] [address] [address] Carey Fisher EGFR-AF CITIZ[place] >60 Normal >=60 [facility] Comment on above: Performed By: #### S PUTGS #### [facility] [address] [address] [address] Carey Fisher EGFR-NON AF [place]IZ[place] OF [place] >60 Normal >=60 [facility] Comment on above: Performed By: #### S PUTGS #### [facility] [address] [address] [address] Carey Fisher Glucose [Mass/Vol] 97 mg/dL Normal 74-106 [facility] Comment on above: Performed By: #### S PUTGS #### [facility] [address] [address] [address] Carey Fisher Potassium [Moles/Vol] 3.6 mmol/L Normal 3.5-5.1 [facility] Comment on above: Performed By: #### S PUTGS #### [facility] [address] [address] [address] Carey Fisher Sodium [Moles/Vol] 138 mmol/L Normal 136-145 [facility] Comment on above: Performed By: #### S PUTGS #### [facility] [address] [address] [address] Carey Fisher Urea nitrogen [Mass/Vol] 20.0 mg/dL Critically high 7.0-18.0 [facility] Comment on above: Performed By: #### S PUTGS #### [facility] [address] [address] [address] Carey Fisher Urea nitrogen/Creatinine [Mass ratio] 17.9 mg/mg Normal [facility] Comment on above: Performed By: #### S PUTGS #### [facility] [address] [address] [address] Carey Fisher Heart Rateon 08-21-2021 Heart Rate Regular -Neurology- Gauth[place] 170 DO Work Phone: Heart Rate Normal MP-Neurology- [place] 170 DO Work Phone: Basophils Auto (Bld) [#/Vol] Ordered By: Leonor Bryant on 07-30-2021 Basophils (Bld) [#/Vol] 0.0 10*3/uL 0.0-0.2 [facility] Basophils/100 WBC Auto (Bld) Ordered By: Leonor Bryant on 07-30-2021 Basophils/100 WBC (Bld) 0.2 % [facility] Blood anisocytosis detection Ordered By: Leonor Bryant on 07-30-2021 Anisocytosis Ql (Bld) Moderate [facility] Blood hemoglobin measurement (mass/volume)Ordered By: Leonor Bryant on 07-30-2021 Hemoglobin (Bld) [Mass/Vol] 9.7 g/dL 13.0-17.0 [facility] Blood leukocytes automated c ount (number/volume)Ordered By: Leonor Bryant on 07-30-2021 WBC (Bld) [#/Vol] 5.1 10*3/uL 4.5-11.0 [facility] Cholesterol [Mass/volume] in Serum or PlasmaOrdered By: Leonor Bryant on 07-30-2021 Cholesterol [Mass/Vol] 159 mg/dL 140-200 [facility] Comment on above: Chol less than 200 m g/dl low riskChol 201-239 mg/dl borderline riskChol 240 mg/dl and greater high risk Cholesterol in LDL Calc [Mas s/Vol]Ordered By: Leonor Bryant on 07-30-2021 Cholesterol in LDL [Mass/Vol] 96 mg/dL 0-100 [facility] Comment on above: LDL ATP III CLASSIFI CATIONLDL less than 100 mg/dL OptimalLDL 100-129 mg/dL Near or above optimalLDL 130-159 mg/dL Borderline highLDL 160-189 mg/dL HighLDL greater than 189 mg/dL Very high Cholesterol in VLDL Calc [Ma ss/Vol]Ordered By: Leonor Bryant on 07-30-2021 Cholesterol in VLDL [Mass/Vol] 17 mg/dL [facility] Creatinine and Glomerular fi ltration rate.predicted panel (S/P/Bld)Ordered By: Leonor Bryant on 07-30-2021 Creatinine [Mass/Vol] 0.92 mg/dL 0.64-1.27 [facility] Eosinophils Auto (Bld) [#/Vo l]Ordered By: Leonor Bryant on 07-30-2021 Eosinophils (Bld) [#/Vol] 0.0 10*3/uL 0.0-0.45 [facility] Eosinophils/100 WBC Auto (Bl d)Ordered By: Leonor Bryant on 07-30-2021 Eosinophils/100 WBC (Bld) 0.0 % [facility] Erythrocyte distribution wid th Auto (RBC) [Ratio]Ordered By: Leonor Bryant on 07-30-2021 Erythrocyte distribution width (RBC) [Ratio] 18.9 % 12.0-14.8 [facility] Estimated glomerular filtrat ion rate (GFR) non- AmericanOrdered By: Leonor Bryant on 07-30-2021 GFR/1.73 sq M.predicted among non-blacks MDRD (S/P/Bld) [Vol rate/Area] > 60 mL/Min [facility] Hematocrit Auto (Bld) [Volum e fraction]Ordered By: Leonor Bryant on 07-30-2021 Hematocrit (Bld) [Volume fraction] 30.7 % 38.8-50.0 [facility] Hypochromia detectionOrdered By: Leonor Bryant on 07-30-2021 Hypochromia Ql (Bld) Slight [facility] - Hematology and Cell countsOrdered By: Leonor Bryant on 07-30-2021 Nucleated RBC/100 WBC (Bld) [Ratio] 0.0 % 0-0.5 [facility] Lymphocytes Auto (Bld) [#/Vo l]Ordered By: Leonor Bryant on 07-30-2021 Lymphocytes (Bld) [#/Vol] 1.6 10*3/uL 1.00-4.8 [facility] Lymphocytes/100 WBC Auto (Bl d)Ordered By: Leonor Bryant on 07-30-2021 Lymphocytes/100 WBC (Bld) 31.8 % [facility] MCH Auto (RBC) [Entitic mass ]Ordered By: Leonor Bryant on 07-30-2021 MCH (RBC) [Entitic mass] 22.1 pg 27.5-35.2 [facility] MCHC Auto (RBC) [Mass/Vol]Or dered By: Leonor Bryant on 07-30-2021 MCHC (RBC) [Mass/Vol] 31.6 g/dL 32.5-35.6 [facility] MCV Auto (RBC) [Entitic vol] Ordered By: Leonor Bryant on 07-30-2021 MCV (RBC) [Entitic vol] 69.8 fL 83.5-101 [facility] Monocytes Auto (Bld) [#/Vol] Ordered By: Leonor Bryant on 07-30-2021 Monocytes (Bld) [#/Vol] 0.4 10*3/uL 0.0-0.8 [facility] Monocytes/100 WBC Auto (Bld) Ordered By: Leonor Bryant on 07-30-2021 Monocytes/100 WBC (Bld) 7.2 % [facility] Neutrophils Auto (Bld) [#/Vo l]Ordered By: Leonor Bryant on 07-30-2021 Neutrophils (Bld) [#/Vol] 3.1 10*3/uL 1.8-7.7 [facility] Neutrophils/100 WBC Auto (Bl d)Ordered By: Leonor Bryant on 07-30-2021 Neutrophils/100 WBC (Bld) 60.8 % [facility] No Panel InformationOrdered By: Leonor Bryant on 07-30-2021 Acanthocytes Slight [facility] CBC Comment See comment [facility] Comment on above: There is significant microcytosis which suggests the possibility of iron deficiency. Consider serum ferritin and iron studies. Estimated GFR () > 60 mL/Min [facility] Comment on above: GFR estimated refere nce range: According to KDOQI guidelines, <60 ml/min/1.73m2 is sufficient to diagnose a patient with chronic kidney disease. Microcytosis Moderate [facility] Creatinine Clearance (Chem 85.39 [facility] Platelet Estimate Normal Normal [facility] Platelet Morphology Comment Normal Normal [facility] Ovalocyte detectionOrdered B y: Leonor Bryant on 07-30-2021 Ovalocytes LM Ql (Bld) Slight [facility] Platelet mean volume Auto (B ld) [Entitic vol]Ordered By: Leonor Bryant on 07-30-2021 Platelet mean volume (Bld) [Entitic vol] 7.5 fL 6.6-10.1 [facility] Platelets Auto (Bld) [#/Vol] Ordered By: Leonor Bryant on 07-30-2021 Platelets (Bld) [#/Vol] 190 10*3/uL 150-450 [facility] RBC Auto (Bld) [#/Vol]Ordere d By: Leonor Bryant on 07-30-2021 RBC (Bld) [#/Vol] 4.40 10*6/uL 3.90-5.60 [facility] RBC morphologyOrdered By: Liza Bryant on 07-30-2021 RBC morphology finding Nom (Bld) N/A [facility] Serum or plasma calcium javan urement (mass/volume)Ordered By: Leonor Bryant on 07-30-2021 Calcium [Mass/Vol] 8.2 mg/dL 8.2-10.2 [facility] Serum or plasma chloride hansa surement (moles/volume)Ordered By: Leonor Bryant on 07-30-2021 Chloride [Moles/Vol] 112 mmol/L 95-114 [facility] Serum or plasma glucose javan urement (mass/volume)Ordered By: Leonor Bryant on 07-30-2021 Glucose [Mass/Vol] 102 mg/dL 70-100 [facility] Comment on above: ADA recommended refe rence rangeRandom Glucose Reference Range is dependent on time and content of last meal. Glucose of more than 200 mg/dL in a nonstressed, ambulatory subject supports the diagnosis of Diabetes Mellitus. Serum or plasma high density lipoprotein (HDL) cholesterol measurementOrdered By: Leonor Bryant on 07-30-2021 Cholesterol in HDL [Mass/Vol] 46 mg/dL [facility] Comment on above: HDL CHOL ATP-III CLA SSIFICATION Cardiovascular RiskHDL > or equal to 60 mg/dL LOWHDL < 40 mg/dL HIGH Serum or plasma potassium me asurement (moles/volume)Ordered By: Leonor Bryant on 07-30-2021 Potassium [Moles/Vol] 3.7 mmol/L 3.5-5.1 [facility] Serum or plasma sodium measu rement (moles/volume)Ordered By: Leonor Bryant on 07-30-2021 Sodium [Moles/Vol] 139 mmol/L 136-146 [facility] Serum or plasma total carbon dioxide measurement (moles/volume)Ordered By: Leonor Bryant on 07-30-2021 CO2 [Moles/Vol] 20.0 mmol/L 22.0-30.0 [facility] Serum or plasma total choles terol/high density lipoprotein (HDL) cholesterol mass ratOrdered By: Leonor Bryant on 07-30-2021 Cholesterol.total/Cho lesterol in HDL [Mass ratio] 3.5 {ratio} [facility] Serum or plasma urea nitroge n measurement (mass/volume)Ordered By: Leonor Bryant on 07-30-2021 Urea nitrogen [Mass/Vol] 18 mg/dL 9- [facility] Teardrop cell detectionOrder ed By: Leonor Bryant on 07-30-2021 Dacrocytes LM Ql (Bld) Slight [facility] Triglyceride [Mass/volume] i n Serum or PlasmaOrdered By: Leonor Bryant on 07-30-2021 Triglyceride [Mass/Vol] 86 mg/dL 35-149 [facility] Comment on above: TRIG ATP III CLASSIF ICATIONTRIG less than 150 mg/dL NormalTRIG 150-199 mg/dL Borderline highTRIG 200-500 mg/dL High TRIG greater than 500 mg/dL Very highStandard traceable to the Center for Disease Conrtrol and Prevention (CDC) test method. Automated erythrocytes count in urine sediment (number/area)Ordered By: Leonor Bryant on 07-29-2021 RBC Auto (Urine sed) [#/Area] None seen [HPF] [facility] Automated leukocytes count i n urine sediment (number/area)Ordered By: Leonor Bryant on 07-29-2021 WBC Auto (Urine sed) [#/Area] 10-19 [HPF] [facility] Bilirubin Test strip Ql (U)O rdered By: Leonor Bryant on 07-29-2021 Bilirubin Ql (U) Negative Negative [facility] Color Auto (U)Ordered By: Ly arin Bryant on 07-29-2021 Color (U) Yellow Yellow [facility] Ketones Auto test strip (U) [Mass/Vol]Ordered By: Leonor Bryant on 07-29-2021 Ketones (U) [Mass/Vol] Trace Negative [facility] Laboratory - Chemistry and C hemistry - challengeOrdered By: Leonor Bryant on 07-29-2021 Magnesium [Mass/Vol] 2.0 mg/dL 1.6-2.6 [facility] Natriuretic peptide B (Bld) [Mass/Vol] 90.0 pg/mL 5-100 [facility] Laboratory - UrinalysisOrder ed By: Leonor Bryant on 07-29-2021 Hyaline casts LM Ql (Urine sed) 0-8 [LPF] [facility] Nitrite Test strip Ql (U)Ord ered By: Leonor Bryant on 07-29-2021 Nitrite Ql (U) Negative Negative [facility] No Panel InformationOrdered By: Ketan Heard on 07-29-2021 D-Dimer Quantitative (PE/DVT) 250 ng/mL 0-243 [facility] Comment on above: The reference range for [...] on 07-29-2021 Protein (U) [Mass/Vol] Negative Negative [facility] Specific gravity Auto test s trip (U) [Rel density]Ordered By: Leonor Bryant on 07-29-2021 Specific gravity (U) [Rel density] 1.015 1.001-1.030 [facility] Squamous epithelial cells de tection in urine sediment by light microscopyOrdered By: Leonor Bryant on 07-29-2021 Epithelial cells.squamous LM Ql (Urine sed) None seen [HPF] [facility] Troponin I.cardiac [Mass/vol ume] in Serum or Plasma by High sensitivity methodOrdered By: Leonor Bryant on 07-29-2021 Troponin I.cardiac High sensitivity method [Mass/Vol] 20 pg/mL 0-20 [facility] Urine bacteria detection by automated methodOrdered By: Leonor Bryant on 07-29-2021 Bacteria Auto Ql (U) 2+ None Seen [facility] Urine clarity by refractomet ry automatedOrdered By: Leonor Bryant on 07-29-2021 Clarity Refractometry automated (U) Clear Clear [facility] Urine glucose measurement by automated test strip (mass/volume)Ordered By: Leonor Bryant on 07-29-2021 Glucose Auto test strip (U) [Mass/Vol] Normal mg/dL Normal [facility] Urine hemoglobin detection b y automated test stripOrdered By: Leonor Bryant on 07-29-2021 Hemoglobin Auto test strip Ql (U) Negative Negative [facility] Urine leukocyte esterase det ection by automated test stripOrdered By: Leonor Bryant on 07-29-2021 Leukocyte esterase Auto test strip Ql (U) 2+ Negative [facility] Urobilinogen Auto test strip (U) [Mass/Vol]Ordered By: Leonor Bryant on 07-29-2021 Urobilinogen (U) [Mass/Vol] Normal mg/dL Normal [facility] pH Auto test strip (U)Ordere d By: Leonor Bryant on 07-29-2021 pH (U) 5.5 [pH] 5.0-9.0 [facility] Heart Rateon 06-19-2021 Heart Rate Regular [facility] Work Phone: Heart Rate Normal [employer] Work Phone: Complete Blood Count + Camelia norris 06-18-2021 Basophils/100 WBC (Bld) 0.2 % 0.0 - 2.0 [employer] Work Phone: Erythrocyte distribution width (RBC) [Ratio] 19.2 % above high threshold See Below [employer] Work Phone: Comment on above: Reference Range: 11. 5 - 14.5 Hematocrit (Bld) [Volume fraction] 38.4 % below low threshold See Below [employer] Work Phone: Comment on above: Reference Range: 41. 0 - 52.0 Hemoglobin (Bld) [Mass/Vol] 10.8 g/dL below low threshold See Below [employer] Work Phone: Comment on above: Reference Range: 13. 5 - 17.5 Lymphocytes/100 WBC (Bld) 13.4 % See Below [employer] Work Phone: Comment on above: Reference Range: 13. 0 - 44.0 MCHC (RBC) [Mass/Vol] 28.1 g/dL below low threshold See Below [employer] Work Phone: Comment on above: Reference Range: 32. 0 - 36.0 MCV (RBC) [Entitic vol] 79 fL below low threshold 80 - 100 [employer] Work Phone: Monocytes/100 WBC (Bld) 3.8 % 2.0 - 10.0 [employer] Work Phone: Neutrophils/100 WBC (Bld) 81.5 % See Below [employer] Work Phone: Comment on above: Reference Range: 40. 0 - 80.0 Platelets (Bld) [#/Vol] 290 10*3/uL 150 - 450 [employer] Work Phone: RBC (Bld) [#/Vol] 4.87 {x10E12/L} See Below [employer] Work Phone: Comment on above: Reference Range: 4.5 0 - 5.90 WBC (Bld) [#/Vol] 10.0 10*3/uL 4.4 - 11.3 [employer] Work Phone: Complete Blood Count + Differential 0.02 {x10E9/L} See Below [employer] Work Phone: Comment on above: Reference Range: 0.0 0 - 0.10 Complete Blood Count + Differential 0.38 {x10E9/L} See Below [employer] Work Phone: Comment on above: Reference Range: 0.1 0 - 1.00 Complete Blood Count + Differential 1.34 {x10E9/L} See Below [employer] Work Phone: Comment on above: Reference Range: 1.2 0 - 4.80 Complete Blood Count + Differential 8.17 {x10E9/L} above high threshold See Below [employer] Work Phone: Comment on above: Reference Range: 1.2 0 - 7.70 Complete Blood Count + Differential 1.1 % above high threshold 0.0 - 0.9 [employer] Work Phone: Comment on above: Immature Granulocyte Count (IG) includes promyelocytes, myelocytes and metamyelocytes but does not include bands. Percent differential counts (%) should be interpreted in the context of the absolute cell counts (cells/L). Cult, Urineon 06-18-2021 Bacteria identified Cx Nom (U) Abnormal [employer] [place] [address]99 DO Work Phone: Laboratory - Chemistry and C hemistry - challengeon 06-18-2021 Albumin BCP dye [Mass/Vol] 4.0 g/dL 3.4 - 5.0 [employer] Work Phone: ALP [Catalytic activity/Vol] 65 U/L 33 - 136 [employer] Work Phone: ALT With P-5'-P [Catalytic activity/Vol] 12 U/L 10 - 52 [employer] Work Phone: Comment on above: Patients treated wit h Sulfasalazine may generate falsely decreased results for ALT. Anion gap [Moles/Vol] 11 mmol/L 10 - 20 [employer] Work Phone: AST With P-5'-P [Catalytic activity/Vol] 13 U/L 9 - 39 [employer] Work Phone: Bilirubin [Mass/Vol] 0.3 mg/dL 0.0 - 1.2 [facility] [employer] Work Phone: Calcium [Mass/Vol] 8.9 mg/dL 8.6 - 10.3 [employer] Work Phone: Chloride [Moles/Vol] 106 mmol/L 98 - 107 [employer] Work Phone: CO2 [Moles/Vol] 24 mmol/L 21 - 32 [employer] Work Phone: Creatinine [Mass/Vol] 1.31 mg/dL above high threshold See Below [employer] Work Phone: Comment on above: Reference Range: 0.5 0 - 1.30 Glucose [Mass/Vol] 90 mg/dL 74 - 99 [facility] [employer] Work Phone: Potassium [Moles/Vol] 4.2 mmol/L 3.5 - 5.3 [facility] [employer] [facility] [employer] Work Phone: Protein [Mass/Vol] 7.2 g/dL 6.4 - 8.2 [facility] [email or web address] Work Phone: Sodium [Moles/Vol] 137 mmol/L 136 - 145 [employer] Work Phone: Urea nitrogen [Mass/Vol] 30 mg/dL above high threshold 6 - 23 [employer] Work Phone: No Panel Informationon 06-18 62 {mL/min/1.73m2} >90 [employer] Work Phone: Comment on above: CALCULATIONS OF ANTHONY MATED GFR ARE PERFORMED USING THE 2020 CKD-EPI STUDY REFIT EQUATION WITHOUT THE RACE VARIABLE FOR THE IDMS-TRACEABLE CREATININE METHODS.https://jasn.asnjournals.org/content/early/ N.1904603736 Urinalysison 06-18-2021 Color (U) YELLOW See Below [employer] Work Phone: Comment on above: Reference Range: STR AW,YELLOW Glucose Ql (U) Negative NEGATIVE [facility] [employer] Work Phone: Ketones Ql (U) Negative NEGATIVE [employer] Work Phone: Leukocyte esterase Test strip Ql (U) TRACE Abnormal NEGATIVE [employer] Work Phone: pH (U) 6.0 [pH] 5.0 - 8.0 [employer] Work Phone: Protein (U) [Mass/Vol] 30 (1+) Abnormal NEGATIVE [employer] Work Phone: RBC (U) [#/Vol] TRACE Abnormal NEGATIVE [employer] Work Phone: Specific gravity (U) [Rel density] 1.035 1 See Below [employer] Work Phone: Comment on above: Reference Range: 1.0 05 - 1.035 Urinalysis Negative NEGATIVE [employer] Work Phone: Urinalysis <2.0 0.0 - 1.9 [employer] Work Phone: Urinalysis HAZY CLEAR [employer] Work Phone: Urinalysis, Microscopicon Urinalysis, Microscopic 1+ [...] 06-05-2021 CT Chest High Resolution Normal -Pulmonary Medicine-[facility] an [address] [place] Work Phone: TH CT CHEST HIGH RESOLUTIONo n 06-05-[address] CHEST HIGH RESOLUTION Patient Name: VELIA BAGLEY STUDY: CT CHEST HIGH RESOLUTION; 06/05/2021 1:47 pm INDICATION: Shortness of breath J44.9: Asthma with COPD U09.9: COVID-19 long hauler R06.02: SOB (shortness of breath) on exertion. History of COVID-19 infection December 2020. COMPARISON: High-resolution chest CT 01/02/2021 ACCESSION NUMBER(S): [id number] ORDERING CLINICIAN: RICH MAGANA TECHNIQUE: Using helical [...] as stated. This study was interpreted at [facility], [place], [place]. Electronically signed by: SHANIQUA MUNSON MD Normal [facility] C Reactive Protein, Serumon 06-03-2021 CRP [Mass/Vol] 0.10 mg/dL [address] Work Phone: Comment on above: REF VALUE< 1.00 Complete Blood Count + Diffe rentialon 06-03-2021 Basophils/100 WBC (Bld) 0.2 % 0.0 - 2.[address] Work Phone: Erythrocyte distribution width (RBC) [Ratio] 19.7 % above high threshold See Below [address] Work Phone: Comment on above: Reference Range: 11. 5 - 14.5 Hematocrit (Bld) [Volume fraction] 35.8 % below low threshold See Below [place] [address] [place] Work Phone: [phone] Comment on above: Reference Range: 41. 0 - 52.0 Hemoglobin (Bld) [Mass/Vol] 10.3 g/dL below low threshold See Below [facility] [address] [place] Work Phone: [phone] Comment on above: Reference Range: 13. 5 - 17.5 Lymphocytes/100 WBC (Bld) 35.0 % See Below [address] Work Phone: [phone] Comment on above: Reference Range: 13. 0 - 44.0 MCHC (RBC) [Mass/Vol] 28.8 g/dL below low threshold See Below [address] Work Phone: [phone] Comment on above: Reference Range: 32. 0 - 36.0 MCV (RBC) [Entitic vol] 78 fL below low threshold 80 - [address] Work Phone: [phone] Monocytes/100 WBC (Bld) 8.5 % 2.0 - 10.[address] Work Phone: [phone] Neutrophils/100 WBC (Bld) 55.7 % See Below [address] Work Phone: [phone] Comment on above: Reference Range: 40. 0 - 80.0 Platelets (Bld) [#/Vol] 251 10*3/uL 150 - [address] Work Phone: [phone] RBC (Bld) [#/Vol] 4.60 {x10E12/L} See Below [address] Work Phone: [phone] Comment on above: Reference Range: 4.5 0 - 5.90 WBC (Bld) [#/Vol] 6.2 10*3/uL 4.4 - 11.[address] Work Phone: [phone] Complete Blood Count + Differential 0.01 {x10E9/L} See Below [facility] [address] [place] Work Phone: Comment on above: Reference Range: 0.0 0 - 0.10 Complete Blood Count + Differential 0.53 {x10E9/L} See Below [address] Work Phone: Comment on above: Reference Range: 0.1 0 - 1.00 Complete Blood Count + Differential 2.18 {x10E9/L} See Below [address] Work Phone: Comment on above: Reference Range: 1.2 0 - 4.80 Complete Blood Count + Differential 3.46 {x10E9/L} See Below [address] Work Phone: Comment on above: Reference Range: 1.2 0 - 7.70 Complete Blood Count + Differential 0.6 % 0.0 - 0.[address] Work Phone: Comment on above: Immature Granulocyte Count (IG) includes promyelocytes, myelocytes and metamyelocytes but does not include bands. Percent differential counts (%) should be interpreted in the context of the absolute cell counts (cells/L). Cortisol A.M.on 06-03-2021 Cortisol AM peak specimen [Mass or moles/Vol] 3.2 ug/dL below low threshold 5.0 - 20.0 [facility]-[address] Work Phone: Laboratory - Chemistry and C hemistry - challengeon 06-03-2021 Albumin BCP dye [Mass/Vol] 3.8 g/dL 3.4 - 5.[address] Work Phone: ALP [Catalytic activity/Vol] 74 U/L 33 - [address] Work Phone: ALT With P-5'-P [Catalytic activity/Vol] 10 U/L 10 - [address] Work Phone: Comment on above: Patients treated wit h Sulfasalazine may generate falsely decreased results for ALT. Anion gap [Moles/Vol] 11 mmol/L 10 - 20 [facility] [address] [place] Work Phone: AST With P-5'-P [Catalytic activity/Vol] 14 U/L 9 - 39 [facility] [address] [place] Work Phone: [phone] Bilirubin [Mass/Vol] 0.2 mg/dL 0.0 - 1.2 [facility] [address] [place] Work Phone: [phone] Calcium [Mass/Vol] 8.4 mg/dL below low threshold 8.6 - 10.3 [facility] [address] [place] Work Phone: [phone] Chloride [Moles/Vol] 104 mmol/L 98 - 107 [facility] [address] [place] Work Phone: [phone] CO2 [Moles/Vol] 25 mmol/L 21 - 32 [facility] [address] [place] Work Phone: [phone] Creatinine [Mass/Vol] 1.27 mg/dL See Below [facility] [address] [place] Work Phone: Comment on above: Reference Range: 0.5 0 - 1.30 Glucose [Mass/Vol] 56 mg/dL below low threshold 74 - 99 [facility] [address] [place] Work Phone: Iron [Mass/Vol] 16 ug/dL below low threshold 35 - 150 [facility] [address] [place] Work Phone: [phone] Iron binding capacity [Mass/Vol] 341 ug/dL 240 - 445 [facility] [address] [place] Work Phone: Potassium [Moles/Vol] 3.1 mmol/L below low threshold 3.5 - 5.3 [facility] [address] [place] Work Phone: Protein [Mass/Vol] 7.3 g/dL 6.4 - 8.[address] [facility] [address] [place] Work Phone: Sodium [Moles/Vol] 137 mmol/L 136 - 145 [facility] [address] [place] Work Phone: TSH Qn 1.48 m[IU]/L See Below [address] Work Phone: Comment on above: Reference Range: 0.4 4 - 3.98 TSH testing is performed using different testing methodology at [facility] than at other [facility]. Direct result comparisons should only be made within the same method. Urea nitrogen [Mass/Vol] 28 mg/dL above high threshold 6 - [address] Work Phone: Laboratory - Serology - non- microon 06-03-2021 Nuclear Ab Hep2 substrate Ql (S) Negative NEGATIVE [facility] Work Phone: Comment on above: The Antinuclear Anti body (MIRNA) test was performed using indirect immunofluorescence assay with HEp-2 cells slide. No Panel Informationon 06-03 33 pg/mL 0 - [address] Work Phone: Comment on above: . <100 pg/mL - Heart failure [id number] pg/mL - Intermediate probability of acute heart. failure exacerbation. Correlate with clinical. context and patient history. >=300 pg/mL - Heart Failure likely. Correlate with clinical. context and patient history.BNP testing is performed using different testing methodology at [facility] than at other [facility]. Direct result comparisons should only be made within the same method. 5 % below low threshold 25 - [address] Work Phone: 65 {mL/min/1.73m2} >[address] Work Phone: Comment on above: CALCULATIONS OF ANTHONY MATED GFR ARE PERFORMED USING THE 2020 CKD-EPI STUDY REFIT EQUATION WITHOUT THE RACE VARIABLE FOR THE IDMS-TRACEABLE CREATININE METHODS.https://jasn.asnjournals.org/content// N.3939447509 Rheumatoid Factor, Serum or Plasmaon 06-03-2021 Rheumatoid factor Nephelometry Qn (S) <10 0 - 15 [facility] [address] [place] Work Phone: Sedimentation Rate, Erythroc yteon 06-03-2021 ESR (Bld) [Velocity] 15 mm/h 0 - 20 [facility] [address] [place] Work Phone: Vitamin B12, Serumon 022 Cobalamin (Vitamin B12) [Mass/Vol] 554 pg/mL 211 - 911 [facility] [address] [place] Work Phone: Tobacco Screening.on 022 Fall risk assessment b) One or more fall s in the last year [facility]- [place] [address] Work Phone: Tobacco use status [facility] b) No [facility]- [place] [address] Work Phone: Respirationon 05-15-2021 Heart Rate [...] fall s in the last year [facility]-Pulmonary Medicine-[facility] [place], [place] [address] DO Work Phone: Tobacco use status [facility] b) No [facility] [place], [place] A[address]70 DO Work Phone: Clinical Event Note-Pulmonar [...] Updated: 05-Apr-2021 20:25 by Jazmine Monaco) Normal [facility] MRI Brain without Contraston 02-22-2021 MR Brain WO contrast Normal [facility] 204 Work Phone: NR MRI BRAIN WOon 02-22-2021 NR MRI BRAIN WO Patient Name: VELIA BAGLEY STUDY: MRI BRAIN WO; 02/22/2021 10:13 am INDICATION: Recurrent falls, dizziness, head trauma. COMPARISON: MRI brain dated 05/09/2017. ACCESSION NUMBER(S): [id number] ORDERING CLINICIAN: JACKI ALANIS TECHNIQUE: Standard multiplanar [...] Electronically signed by: SALLY LEE MD Normal [facility] Heart Rateon 02-21-2021 Heart Rate Regular -Neurology- [place] [address] DO Work Phone: Heart Rate Normal -Neurology- [place] 170 DO Work Phone: Tobacco Screening.on Fall risk assessment b) One or more fall s in the last year [facility] [place] [address] Work Phone: Tobacco use status [facility] b) No -Neurology- [place] 204 Work Phone: Tobacco Screening.on Fall risk assessment a) No falls within the last year -[employer] 2100 DO Work Phone: Tobacco use status [facility] b) No [facility] [employer] [facility] 2100 DO Work Phone: Antibody Assay, Diphtheriaon 01-11-2021 C. diphtheriae Ab IA Qn (S) <0.10 below low threshold <0.10 [employer] 2100 DO Work Phone: Comment on above: Interpretation: Non- Protective <0.10 Protective >=0.10 For research use only. H. Influenza B Ab, IgGon H. influenzae B IgG (S) [Mass/Vol] 0.0 ug/mL [employer] 2100 DO Work Phone: Comment on above: [...] developed and its performance characteristics determined by [employer]. It has not been cleared or approved by the US Food and Drug Administration. This test was performed in a CLIA certified laboratory and is intended for clinical purposes.Performed By: [employer] [place] [id number] Director: Lyndsey Rodrigez MD Immunoglobulin A Level, Seru [facility] 01-11-2021 IgA [Mass/Vol] 203 mg/dL 70 - 400 [facility] [employer] [facility] 2100 DO Work Phone: Comment on above: MONOCLONAL PROTEINS MAY CAUSE FALSELY LOWRESULTS IN THIS ASSAY. SERUM PROTEINELECTROPHORESIS SHOULD BE DONE THEFIRST TEST TO EVALUATE MONOCLONAL GAMMOPATHY. Immunoglobulin M Level, Seru [facility] 01-11-2021 IgM [Mass/Vol] 64 mg/dL 40 - 230 [facility] [employer] -[place] 2100 DO Work Phone: Comment on above: MONOCLONAL PROTEINS MAY CAUSE FALSELY LOWRESULTS IN THIS ASSAY. SERUM PROTEINELECTROPHORESIS SHOULD BE DONE THEFIRST TEST TO EVALUATE MONOCLONAL GAMMOPATHY. Laboratory - Microbiology an d Antimicrobial susceptibilityon 01-11-2021 S. pneumoniae 1 IgG (S) [Mass/Vol] 0.9 ug/mL below low threshold >1.3 [facility] 2100 DO Work Phone: S. pneumoniae 12 IgG (S) [Mass/Vol] 0.2 ug/mL below low threshold >1.3 [facility] 2100 DO Work Phone: S. pneumoniae 14 IgG (S) [Mass/Vol] 0.6 ug/mL below low threshold >1.3 [facility] 2100 DO Work Phone: S. pneumoniae 17 IgG (S) [Mass/Vol] 7.2 ug/mL >1.3 [facility] -[facility] 2100 DO Work Phone: S. pneumoniae 19 IgG (S) [Mass/Vol] 2.2 ug/mL >1.3 [facility] [employer] [facility] 2100 DO Work Phone: S. pneumoniae 2 IgG (S) [Mass/Vol] 2.7 ug/mL >1.3 [facility] 2100 DO Work Phone: S. pneumoniae 20 IgG (S) [Mass/Vol] 20.7 ug/mL >1.3 [facility] -[facility] 2099 DO Work Phone: S. pneumoniae 22 IgG (S) [Mass/Vol] 3.1 ug/mL >1.3 [employer] 2099 DO Work Phone: S. pneumoniae 23 IgG (S) [Mass/Vol] 0.9 ug/mL below low threshold >1.3 [facility] 2099 DO Work Phone: S. pneumoniae 3 IgG (S) [Mass/Vol] 5.6 ug/mL >1.3 [employer]2099 DO Work Phone: S. pneumoniae 34 IgG (S) [Mass/Vol] 0.8 ug/mL below low threshold >1.3 [facility] 2099 DO Work Phone: S. pneumoniae 4 IgG (S) [Mass/Vol] 0.5 ug/mL below low threshold >1.3 [employer] 2099 DO Work Phone: S. pneumoniae 43 IgG (S) [Mass/Vol] 2.6 ug/mL >1.3 [employer] 2100 DO Work Phone: S. pneumoniae 5 IgG (S) [Mass/Vol] 2.2 ug/mL >1.3 [facility] 2100 DO Work Phone: S. pneumoniae 8 IgG (S) [Mass/Vol] 9.0 ug/mL >1.3 [facility] 2100 DO Work Phone: S. pneumoniae 9 IgG (S) [Mass/Vol] 0.4 ug/mL below low threshold >1.3 [facility] 2100 DO Work Phone: S. pneumoniae Wallisian type 15B IgG (S) [Mass/Vol] 0.9 ug/mL below low threshold >1.3 [facility] 2100 DO Work Phone: S. pneumoniae Wallisian type 18C IgG (S) [Mass/Vol] 2.3 ug/mL >1.3 [facility] 2100 DO Work Phone: S. pneumoniae Wallisian type 19A IgG (S) [Mass/Vol] 4.7 ug/mL >1.3 [facility] 2100 DO Work Phone: S. pneumoniae Wallisian type 33F IgG (S) [Mass/Vol] 0.6 ug/mL below low threshold >1.3 [facility] 2100 DO Work Phone: Comment on above: *This test was david amaya and its performance characteristics determined by [employer]. It has not been cleared or approved by the U.S. Food and Drug Administration. Performed At:[facility] [employer] [employer] '[address] [place] [address]Mekdcwmagc Director: Ron Roberts Ph.D., BCLMcihael (ABB)CLIA#: [id number]: S. pneumoniae Wallisian type 6B IgG (S) [Mass/Vol] 1.9 ug/mL >1.3 [facility] 2100 DO Work Phone: S. pneumoniae Wallisian type 7F IgG (S) [Mass/Vol] 1.8 ug/mL >1.3 [facility] 2100 DO Work Phone: S. pneumoniae Wallisian type 9V IgG (S) [Mass/Vol] 0.9 ug/mL below low threshold >1.3 [facility] [employer] [facility] 2100 DO Work Phone: Tetanus Abon 01-11-2021 C. tetani IgG IA Qn (S) 0.35 {IU/mL} <0.10 [employer] 2100 DO Work Phone: Comment on above: Interpretation: Non- Protective <0.10 Protective >=0.10 Results for this test are for research purposes only by the assay's quail farmer. The performance characteristics of this product have [...] WBC (Bld) 0.1 % 0.0 - 2.0 [facility] 2100 DO Work Phone: Erythrocyte distribution width (RBC) [Ratio] 16.2 % above high threshold See Below [employer] 2100 DO Work Phone: Comment on above: Reference Range: 11. 5 - 14.5 Hematocrit (Bld) [Volume fraction] 39.6 % below low threshold See Below [employer] DO Work Phone: Comment on above: Reference Range: 41. 0 - 52.0 Hemoglobin (Bld) [Mass/Vol] 11.0 g/dL below low threshold See Below [employer] 2100 DO Work Phone: Comment on above: Reference Range: 13. 5 - 17.5 Lymphocytes/100 WBC (Bld) 7.7 % See Below [employer] 2100 DO Work Phone: Comment on above: Reference Range: 13. 0 - 44.0 MCHC (RBC) [Mass/Vol] 27.8 g/dL below low threshold See Below [employer] DO Work Phone: Comment on above: Reference Range: 32. 0 - 36.0 MCV (RBC) [Entitic vol] 82 fL 80 - 100 [employer] DO Work Phone: Monocytes/100 WBC (Bld) 2.8 % 2.0 - 10.0 [employer] DO Work Phone: Neutrophils/100 WBC (Bld) 87.8 % See Below [employer] DO Work Phone: Comment on above: Reference Range: 40. 0 - 80.0 Platelets (Bld) [#/Vol] 292 10*3/uL 150 - 450 [employer] DO Work Phone: RBC (Bld) [#/Vol] 4.82 {x10E12/L} See Below [employer] DO Work Phone: Comment on above: Reference Range: 4.5 0 - 5.90 WBC (Bld) [#/Vol] 13.6 10*3/uL above high threshold 4.4 - 11.3 [employer] DO Work Phone: Complete Blood Count + Differential 0.02 {x10E9/L} See Below [employer] DO Work Phone: Comment on above: Reference Range: 0.0 0 - 0.10 Complete Blood Count + Differential 0.38 {x10E9/L} See Below [employer] DO Work Phone: Comment on above: Reference Range: 0.1 0 - 1.00 Complete Blood Count + Differential 1.04 {x10E9/L} below low threshold See Below [employer] DO Work Phone: Comment on above: Reference Range: 1.2 0 - 4.80 Complete Blood Count + Differential 11.90 {x10E9/L} above high threshold See Below [employer] DO Work Phone: Comment on above: Reference Range: 1.2 0 - 7.70 Complete Blood Count + Differential 1.6 % above high threshold 0.0 - 0.9 [employer] DO Work Phone: Comment on above: Immature Granulocyte Count (IG) includes promyelocytes, myelocytes and metamyelocytes but does not include bands. Percent differential counts (%) should be interpreted in the context of the absolute cell counts (cells/L). Complete Blood Count + Differential 0.2 {/100_WBC} 0.0 - 0.0 [employer] DO Work Phone: Laboratory - Cell markerson 12-10-2020 CD19 cells (Bld) [#/Vol] 0.062 {x10E9/L} below low threshold See Below [employer] DO Work Phone: Comment on above: Reference Range: 0.0 70 - 0.910 CD3 cells (Bld) [#/Vol] 0.915 {x10E9/L} See Below [employer] DO Work Phone: Comment on above: Reference Range: 0.7 10 - 4.180 CD3+CD4+ (T4 helper) cells (Bld) [#/Vol] 0.499 {x10E9/L} See Below [facility] 2100 DO Work Phone: Comment on above: Reference Range: 0.3 50 - 2.740 CD3+CD4+ (T4 helper) cells/CD3+CD8+ (T8 suppressor cells) cells (Bld) [# ratio] 1.41 % See Below [facility] 2099 DO Work Phone: Comment on above: Reference Range: 1.0 0 - 3.50 CD3+SP7-US7-KL77+ cells/100 cells (Bld) 2 % 0 - 6 [facility] 2099 DO Work Phone: CD3+CD8+ (T8 suppressor cells) cells (Bld) [#/Vol] 0.354 {x10E9/L} See Below [facility] 2099 DO Work Phone: Comment on above: Reference Range: 0.0 80 - 1.490 CD3-CD16+CD56+ (Natural killer) cells (Bld) [#/Vol] 0.062 {x10E9L} See Below [facility] 2099 DO Work Phone: Comment on above: Reference Range: 0.0 00 - 0.860 CD3-CD16+CD56+ (Natural killer) cells/100 cells (Bld) 6 % 0 - 18 [facility] 2099 DO Work Phone: CD45 (Lymphs) cells/100 cells (Unsp spec) 100 % [facility] 2099 DO Work Phone: Laboratory - Chemistry and C hemistry - challengeon 12-10-2020 Iron [Mass/Vol] 22 ug/dL below low threshold 35 - 150 [facility] 2099 DO Work Phone: Iron binding capacity [Mass/Vol] 393 ug/dL 240 - 445 [facility] 2099 DO Work Phone: No Panel Informationon 12-10 SEE BELOW [facility] 2099 DO Work Phone: Comment on above: This test is a multi color, whole blood lysis assay. It was developed and its performance characteristics determined by the Department of Pathology, [facility], and has not been cleared or approved [...] below low threshold 25 - 45 [facility] 2100 DO Work Phone: 34 % above high threshold 7 - 31 [facility] 2100 DO Work Phone: 48 % 29 - 57 [facility]100 DO Work Phone: 88 % above high threshold 59 - 87 [facility] 2100 DO Work Phone: BLOOD [facility] 2100 DO Work Phone: Comment on above: SOURCE: Path Rev:2-8 Surface Markervernon roy 12-10-2020 Path Rev:2-8 Surface Marker NENITA [facility] 2100 DO Work Phone: Comment on above: [...] due to past or present infection with ucl-NFHI-MdF-2 coronavirus strains, such as coronavirus HKU1, NL63, [...] of breath, asthma COMPARISON: 08/04/2017 ACCESSION NUMBER(S): [id number] ORDERING CLINICIAN: CAROL ANN ELLIOTT TECHNIQUE: Helical [...] pneumonia. Electronically signed by: JUDITH ROMERO MD [facility] Complete Blood Count + Diffe phyllismickey 12-06-2020 Erythrocyte distribution width (RBC) [Ratio] 16.7 % above high threshold See Below [facility] 130 [place] Work Phone: [phone] Comment on above: Reference Range: 11. 5 - 14.5 Hematocrit (Bld) [Volume fraction] 36.5 % below low threshold See Below [facility] 130 [place] Work Phone: [phone] Comment on above: Reference Range: 41. 0 - 52.0 Hemoglobin (Bld) [Mass/Vol] 10.4 g/dL below low threshold See Below [facility] 130 [place] Work Phone: Comment on above: Reference Range: 13. 5 - 17.5 MCHC (RBC) [Mass/Vol] 28.5 g/dL below low threshold See Below COVID [facility] 130 [place] Work Phone: [phone] Comment on above: Reference Range: 32. 0 - 36.0 MCV (RBC) [Entitic vol] 81 fL 80 - 100 [facility] 130 [place] Work Phone: Platelets (Bld) [#/Vol] 246 10*3/uL 150 - 450 [facility] [address] Work Phone: [phone] RBC (Bld) [#/Vol] 4.53 {x10E12/L} See Below COVID [facility] 130 [place] Work Phone: Comment on above: Reference Range: 4.5 0 - 5.90 WBC (Bld) [#/Vol] 10.8 10*3/uL 4.4 - 11.[address] [facility] 130 [place] Work Phone: Complete Blood Count + Differential SEE MANUAL DIFF COVID [facility] 130 [place] Work Phone: Complete Blood Count + Differential 11.9 % above high threshold 0.0 - 0.9 COVID [facility] 130 [place] Work Phone: Comment on above: Immature Granulocyte Count (IG) includes promyelocytes, myelocytes and metamyelocytes but does not include bands. Percent differential counts (%) should be interpreted in the context of the absolute cell counts (cells/L). Laboratory - Chemistry and C hemistry - challengeon 12-06-2020 Anion gap [Moles/Vol] 10 mmol/L 10 - 20 [facility] 130 [place] Work Phone: Calcium [Mass/Vol] 8.8 mg/dL 8.6 - 10.3 [facility] 130 [place] Work Phone: Chloride [Moles/Vol] 108 mmol/L above high threshold 98 - 107 [place] [address] [place] Work Phone: CO2 [Moles/Vol] 25 mmol/L 21 - [address] Work Phone: Creatinine [Mass/Vol] 1.14 mg/dL See Below [place] [address] [place] Work Phone: Comment on above: Reference Range: 0.5 0 - 1.30 Glucose [Mass/Vol] 107 mg/dL above high threshold 74 - 99 [place] [address] [place] Work Phone: IgA [Mass/Vol] 197 mg/dL 70 - [address] Work Phone: Comment on above: MONOCLONAL PROTEINS MAY CAUSE FALSELY LOWRESULTS IN THIS ASSAY. SERUM PROTEINELECTROPHORESIS SHOULD BE DONE THEFIRST TEST TO EVALUATE MONOCLONAL GAMMOPATHY. IgG [Mass/Vol] 552 mg/dL below low threshold 700 - 1600 [facility] 130 [place] Work Phone: Comment on above: MONOCLONAL PROTEINS MAY CAUSE FALSELY LOWRESULTS IN THIS ASSAY. SERUM PROTEINELECTROPHORESIS SHOULD BE DONE THEFIRST TEST TO EVALUATE MONOCLONAL GAMMOPATHY. IgM [Mass/Vol] 46 mg/dL 40 - [address] Work Phone: Comment on above: MONOCLONAL PROTEINS MAY CAUSE FALSELY LOWRESULTS IN THIS ASSAY. SERUM PROTEINELECTROPHORESIS SHOULD BE DONE THEFIRST TEST TO EVALUATE MONOCLONAL GAMMOPATHY. Potassium [Moles/Vol] 3.9 mmol/L 3.5 - 5.3 [facility] 130 [place] Work Phone: [phone] Sodium [Moles/Vol] 139 mmol/L 136 - 145 [facility] 130 [place] Work Phone: [phone] Urea nitrogen [Mass/Vol] 31 mg/dL above high threshold 6 - 23 [facility] 130 [place] Work Phone: [phone] Laboratory - Hematology and Cell countson 12-06-2020 Basophils/100 WBC (Bld) 0.0 % 0.0 - 2.0 [facility] 130 [place] Work Phone: [phone] Lymphocytes/100 WBC (Bld) 17.0 % See Below [facility] 130 [place] Work Phone: [phone] Comment on above: Reference Range: 13. 0 - 44.0 Monocytes/100 WBC (Bld) 3.0 % 2.0 - 10.0 [facility] 130 [place] Work Phone: [phone] MOCA (Bharat Cognitive Ass essment)on 12-06-2020 MOCA (Bharat Cognitive Assessment) 2 1 [facility] 130 [place] Work Phone: [phone] MOCA ([place] Cognitive Assessment) 0 1 [facility] 130 [place] Work Phone: [phone] MOCA ([place] Cognitive Assessment) 3 1 [facility] 130 [place] Work Phone: [phone] MOCA ([place] Cognitive Assessment) 4 1 [facility] 130 [place] Work Phone: [phone] MOCA (Bharat Cognitive Assessment) 22 1 [facility] 130 [place] Work Phone: [phone] MOCA (Bharat Cognitive Assessment) Yes [facility] 130 [place] Work Phone: [phone] MOCA ([place] Cognitive Assessment) 5 1 [facility] 130 [place] Work Phone: No Panel Informationon 12-06 Few [facility] 130 [place] Work Phone: Mild [place] [address] [place] Work Phone: See Below [address] Work Phone: 8.32 {x10E9/L} above high threshold See Below [address] Work Phone: Comment on above: Reference Range: 1.2 0 - 7.70 Reference Range: 1.2 0 - 7.00 0.32 {x10E9/L} See Below [address] Work Phone: Comment on above: Reference Range: 0.0 0 - 0.00 Reference Range: 0.1 0 - 1.00 0.00 {x10E9/L} See Below [address] Work Phone: Comment on above: Reference Range: 0.0 0 - 0.10 Reference Range: 0.0 0 - 0.70 1.84 {x10E9/L} See Below [address] Work Phone: Comment on above: Reference Range: 1.2 0 - 4.80 3.0 % 0.0 - 0.[address] Work Phone: 0.0 % 0.0 - 6.[address] Work Phone: 77.0 % See Below [place] [address] [place] Work Phone: Comment on above: Reference Range: 40. 0 - 80.0 Percent differential counts (%) should be interpreted in the context of the absolute cell counts (cells/L). >60 >60 [place] [address] [place] Work Phone: Comment on above: CALCULATIONS OF ANTHONY MATED GFR ARE PERFORMED USING THE MDRD STUDY EQUATION FOR THE IDMS-TRACEABLE CREATININE METHODS. CLIN CHEM 2007;53:[id number] 607 {ng/mL_FEU} Abnormal < or = 500 [place] [address] [facility] Work Phone: Comment on above: The VTE [...] Radiologyon 12-06-2020 XR Chest 2 Views Normal [address] Work Phone: TH CT Angio Chest For PEon 0 12-06-[address] Angio Chest For PE Normal [address] Work Phone: Tobacco Screening.on 021 Fall risk assessment b) One or more fall s in the last year [place] [address] [facility] Work Phone: Tobacco use status CPHS b) No [place] [address] [facility] Work Phone: Cytokine Panel, Serumon 11-02 Interferon gamma [Mass/Vol] <4.2 <=4.2 [facility] 2100 DO Work Phone: Interleukin 1 beta [Mass/Vol] <6.5 <=6.7 [facility] 2100 DO Work Phone: Interleukin 10 [Mass/Vol] 6.7 pg/mL above high threshold <=2.8 [facility] 2100 DO Work Phone: Interleukin 12 [Mass/Vol] <1.9 <=1.9 [facility] 2100 DO Work Phone: Interleukin 13 [Mass/Vol] <1.7 <=2.3 [facility] 2100 DO Work Phone: Interleukin 17A [Mass/Vol] <1.4 <=1.4 [facility] 2100 DO Work Phone: Interleukin 2 [Mass/Vol] <2.1 <=2.1 [facility] 2100 DO Work Phone: Interleukin 2 Receptor Soluble [Mass/Vol] 547.0 pg/mL See Below [facility] 2100 DO Work Phone: Comment on above: Reference Range: 175 .3-858.2 Interleukin 4 [Mass/Vol] <2.2 <=2.2 [facility] 2100 DO Work Phone: Interleukin 5 [Mass/Vol] <2.1 <=2.1 [facility] 2100 DO Work Phone: Interleukin 6 [Mass/Vol] <2.0 <=2.0 [facility] 2100 DO Work Phone: Interleukin 8 [Mass/Vol] <3.0 <=3.0 [facility] 2100 DO Work Phone: Tumor necrosis factor.alpha [Mass/Vol] <1.7 <=7.2 [facility] 2100 DO Work Phone: Comment on above: INTERPRETIVE INFORMA TION: CytokinesResults are used to understand the pathophysiology of immune, infectious, or inflammatory disorders, or may be used for research purposes.This test was developed and its performance characteristics determined by [employer]. It has not been cleared or approved by the US Food and Drug Administration. This test was performed in a CLIA certified laboratory and is intended for clinical purposes.Performed By: [employer] [place] [id number] Director: Lyndsey Rodrigez MD Immunoglobulin G Level, Seru [facility] 11-26-2020 IgG [Mass/Vol] 477 mg/dL below low threshold 700 - 1600 [facility] 2100 DO Work Phone: Comment on above: MONOCLONAL PROTEINS MAY CAUSE FALSELY LOWRESULTS IN THIS ASSAY. SERUM PROTEINELECTROPHORESIS SHOULD BE DONE THEFIRST TEST TO EVALUATE MONOCLONAL GAMMOPATHY. Laboratory - Allergyon 11-26 [place] serum Ab Immune diff Ql (S) Not detected See Below [facility] [employer] DO Work Phone: Comment on above: Reference Range: Non e DetectedPerformed By: [facility] [id number] [place] [address] Total IgE RAST Qn (S) <2.0 See Below [facility] [employer] [place] 2100 DO Work Phone: Comment on above: Reference Range: 0.0 - 214.0 Note: Omalizumab (Xolair, GeneIgnitAd; humanized IgG1 antihuman IgE Fc) treatment does not significantly interfere with the accuracy of total IgE on the ImmunoCAP ([employer]) platform. J Allergy Clin Immunol 2006;117:759-66). Allergens, parasitic diseases, smoking, and alcohol consumption have been reported to increase levels of total IgE in serum. Laboratory - Microbiology an d Antimicrobial susceptibilityon 11-26-2020 A. fumigatus 1 Ab Immune diff Ql (S) Not detected See Below [facility] [employer] DO Work Phone: Comment on above: Reference Range: Non e DetectedPerformed By: [facility] [id number] [place] [address] A. fumigatus 6 Ab Immune diff Ql (S) Not detected See Below [facility]ENTERBE[facility]ed[facility] Chat DO Work Phone: Comment on above: Reference Range: Non e DetectedPerformed By: [facility] [id number] [place] [address] A. pullulans Ab Immune diff Ql (S) Not detected See Below Tucker Blair DO Work Phone: Comment on above: Reference Range: Non e DetectedPerformed By: [facility] [address] [place] [address] S. rectivirgula Ab Immune diff Ql (S) Not detected See Below Tucker Blair DO Work Phone: Comment on above: Reference Range: Non e DetectedPerformed By: [facility] [id number] [place] [address] T. vulgaris Ab Immune diff Ql (S) Not detected See Below [facility] 2100 DO Work Phone: Comment on above: Reference Range: Non e DetectedTesting includes antibodies directed at Aureobasidium pullulans, Aspergillus fumigatus #1, Aspergillus fumigatus #6, Micropolyspora faeni, [place] Serum and Thermoactinomyces vulgaris #1.Performed By: [id number] [place] [address] Heart Rateon 11-22-2020 Heart Rate Regular [facility] [place] 170 DO Work Phone: Heart Rate Normal [facility] [place] 170 DO Work Phone: Heart Rateon 11-07-2020 Heart Rate Regular [facility] [place] 170 DO Work Phone: Heart Rate Normal [facility] [place] 170 DO Work Phone: Radiologyon 10-30-2020 XR Chest 2 Views Normal [facility] 2100 DO Work Phone: XR Chest 2 Views Please click on the link to view the study images Normal [facility] 2100 DO Work Phone: Respirationon 10-03-2020 Heart Rate Regular [facility] [place] 170 DO Work Phone: Respiration Normal [facility] [place] 170 DO Work Phone: Respirationon 09-19-2020 Heart Rate Regular [facility] 2100 DO Work Phone: Respiration Normal [facility] 2100 DO Work Phone: CBC Auto DifferentialOrdered [...] 35.1 % Low 40.0 - 52.0 % [employer] Work Phone: Hemoglobin.gastrointe stinal spec 1 Ql (Stl) 11.2 g/dL Low 13.0 - 18.0 g/dL [employer] Work Phone: Interpretation and review of laboratory results Abnormal [employer] Work Phone: Lymphocytes (Bld) [#/Vol] 0.9 10*3/uL Low 1.0 - 4.3 10*3/uL [employer] Work Phone: Lymphocytes/100 WBC (Bld) 11.0 % Low 20.0 - 40.0 % [employer] Work Phone: MCH (RBC) [Entitic mass] 26.7 pg 26.0 - 34.0 pg [facility] Work Phone: MCHC (RBC) [Mass/Vol] 31.8 % Low 32.0 - 36.0 % [facility] Work Phone: MCV (RBC) [Entitic vol] 84.0 fL 80.0 - 98.0 fL [employer] Work Phone: Monocytes (Bld) [#/Vol] 0.3 10*3/uL 0.0 - 0.8 10*3/uL [facility] Work Phone: Monocytes/100 WBC (Bld) 3.1 % 2.0 - 10.0 % [employer] Work Phone: Platelet distribution width (Bld) [Ratio] 19.2 % High 11.5 - 14.5 % [employer] Work Phone: Platelet mean volume (Bld) [Entitic vol] 7.2 fL Low 7.4 - 10.4 fL [employer] Work Phone: Platelets (Bld) [#/Vol] 275 10*3/uL 140 - 440 10*3/uL [employer] Work Phone: RBC (Bld) [#/Vol] 4.18 10*6/uL Low 4.40 - 5.9 0 10*6/uL [employer] Work Phone: WBC (Bld) [#/Vol] 8.2 10*3/uL 3.6 - 10.7 10*3/uL [employer] Work Phone: Test Performed by [facility], [address] [place] [id number] [employer] Work Phone: COVID and Resp PCR Panelon 0 09-08-2020 SARS-CoV-2 (COVID-19) RNA EMMY+probe Ql (Unsp spec) COVID and Resp PCR Panel --> Status: F NEGATIVE: No targets were detected by the [employer] Upper Respiratory Pathogens PCR Panel. _ Expected Result: Not Detected The [employer] Upper Respiratory Pathogens PCR Panel can detect [...] management decisions. This assay was developed by [employer] and distributed under an Emergency Use Authorization (EUA) granted by the FDA for the qualitative detection of SARS-CoV-2 nucleic acid. Provider and patient fact sheets can be found at https://www.fda.gov/medi a/335175/download and https://www.fda.gov/medi a/250603/download. Respiratory Pathogens PCR Panel. _ Expected Result: Not Detected The [employer] Upper Respiratory Pathogens PCR Panel can detect [...] management decisions. This assay was developed by [employer] and distributed under an Emergency Use Authorization (EUA) granted by the FDA for the qualitative detection of SARS-CoV-2 nucleic acid. Provider and patient fact sheets can be found at https://www.fda.gov/medi a/640445/download and https://www.fda.gov/medi a/769838/download. Normal [facility] Comment on above: Performed By: #### [facility] ####[facility] [place] [address] CTA Chest W WO (PE study)Ord ered By: Mathew Rios on 09-08-2020 Patient Name: VELIA SALMERON Computed Tomography ACCESSION EXAM DATE/TIME PROCEDURE ORDERING PROVIDER [id number] 09/08/2020 16:07 EDT CTA Chest w/ + w/o PUNEET RIOS, MATHEW Rowan Contrast CPT code 65251 Q9967 Reason For Exam (CTA Chest w/ [...] images were reconstructed concurrently on a dedicated [employer] workstation by the interpreting radiologist. Exam [...] Phone: [place], [facility] Incoming Radiology Results From [facility] - 09/08/2020 4:46 PM EDT Patient Name: VELIA BAGLEY Computed Tomography ACCESSION EXAM DATE/TIME PROCEDURE ORDERING PROVIDER [id number] 09/08/2020 16:07 EDT CTA Chest w/ + w/o PUNEET RIOS JOHN M Contrast CPT code 86753 Q9967 Reason For Exam (CTA Chest w/ [...] images were reconstructed concurrently on a dedicated [employer] workstation by the interpreting radiologist. Exam [...] w/o Contrast [id number] Comput[facility] Tomography ACCESSION EXAM DATE/TIME PROCEDURE ORDERING PROVIDER [id number] 09/08/2020 16:07 EDT CTA Chest w/ + w/o PUNEET RIOS JOHN M Contrast CPT code 25804 Q9967 Reason For Exam (CTA Chest w/ [...] images were reconstructed concurrently on a dedicated [employer] workstation by the interpreting radiologist. Exam [...] Transcribed Date and Time: 09/08/2020 4:38 Normal [facility] Comp Metabolic Panelon 09-08 ALT [Catalytic activity/Vol] 15 U/L Normal 0-49 [facility] Comment on above: Result Comment: The ALT test is performed by an updated assay method. Please note that the reference intervals have been changed and are now sex specific. Performed By: #### C MP3, TROPN, HEMDF ####[facility] [place] [address] Calcium [Mass/Vol] 9.1 mg/dL Normal 8.4-10.4 [facility] Comment on above: Performed By: #### C MP3, TROPN, HEMDF ####[facility] [place], [place] ALP [Catalytic activity/Vol] 89 U/L Normal 38-126 [facility] Comment on above: Performed By: #### C MP3, TROPN, HEMDF ####[address] [place], [place] Anion gap [Moles/Vol] 8 mmol/L Normal 3-13 [facility] Comment on above: Performed By: #### C MP3, TROPN, HEMDF ####[address] [place], [place] AST [Catalytic activity/Vol] 19 U/L Normal 15-46 [facility] Comment on above: Performed By: #### C MP3, TROPN, HEMDF ####[address] [place], [place] Bilirubin [Mass/Vol] 0.5 mg/dL Normal 0.2-1.3 [facility] Comment on above: Performed By: #### C MP3, TROPN, HEMDF ####[address] [place], [place] CO2 [Moles/Vol] 19 mmol/L Low 22-30 [facility] Comment on above: Performed By: #### C MP3, TROPN, HEMDF ####[address] [place], [place] Creatinine [Mass/Vol] 0.94 mg/dL Normal 0.52-1.25 [facility] Comment on above: Performed By: #### C MP3, TROPN, HEMDF ####[address] [place], [place] GFR/1.73 sq M.predicted among blacks MDRD (S/P/Bld) [Vol rate/Area] mL/min/{1.73_m2} Normal >60 [facility] Comment on above: Performed By: #### C MP3, TROPN, HEMDF ####[address] [place] [address] GFR/1.73 sq M.predicted among non-blacks MDRD (S/P/Bld) [Vol rate/Area] 88.0 mL/min/{1.73_m2} Normal >60 [facility] Comment on above: Result Comment: KDIG O [...] Performed By: #### C MP3, TROPN, HEMDF ####[facility] [place] [address] Glucose [Mass/Vol] 101 mg/dL High 70-100 [facility] Comment on above: Performed By: #### C MP3, TROPN, HEMDF ####[address] [place] [address] Protein [Mass/Vol] 6.3 g/dL Normal 6.3-8.2 [facility] Comment on above: Performed By: #### C MP3, TROPN, HEMDF ####[facility] [place] [address] Urea nitrogen [Mass/Vol] 18 mg/dL Normal 7-20 [facility] Comment on above: Performed By: #### C MP3, TROPN, HEMDF ####[facility] [place] [address] Potassium [Moles/Vol] 4.3 mmol/L Normal 3.5-5.1 [facility] Comment on above: Performed By: #### C MP3, TROPN, HEMDF ####[facility] [address] [place] [address] Sodium [Moles/Vol] 138 mmol/L Normal 135-145 [facility] Comment on above: Performed By: #### C MP3, TROPN, HEMDF ####[facility] [address] [place] [address] Albumin [Mass/Vol] 3.7 g/dL Normal 3.5-5.0 [facility] Comment on above: Performed By: #### C MP3, TROPN, HEMDF ####[facility] [address] [place] [address] Chloride [Moles/Vol] 111 mmol/L High 98-107 [facility] Comment on above: Performed By: #### C MP3, TROPN, HEMDF ####[address] [place] [address] Comprehensive Metabolic Pane lOrdered By: Mathew Rios on 09-08-2020 Albumin [Mass/Vol] 3.7 g/dL 3.5 - 5.0 g/dL [facility] Work Phone: ALP (Bld) [Catalytic activity/Vol] 89 U/L 38 - 126 U/L [facility] Work Phone: ALT [Catalytic activity/Vol] 15 U/L 0 - 49 U/L [facility] Work Phone: Comment on above: The ALT test is perf ormed by an updated assay method. Please note that the reference intervals have been changed and are now sex specific. Anion gap [Moles/Vol] 8 mmol/L 3 - 13 mmol/L [facility] Work Phone: AST [Catalytic activity/Vol] 19 U/L 15 - 46 U/L [facility] Work Phone: Bilirubin [Mass/Vol] 0.5 mg/dL 0.2 - 1 .3 mg/dL [employer] Work Phone: Calcium [Mass/Vol] 9.1 mg/dL 8.4 - 10. 4 mg/dL [facility] Work Phone: Chloride [Moles/Vol] 111 mmol/L High 98 - 10 7 mmol/L [facility] Work Phone: CO2 [Moles/Vol] 19 mmol/L Low 22 - 30 mmol/L [facility] Work Phone: Creatinine [Mass/Vol] 0.94 mg/dL 0.52 - 1.25 mg/dL [facility] Work Phone: EGFR IF NonAfrican Bahraini 88.0 mL/min >60 [facility] Work Phone: Comment [...] fraction] 6.3 g/dL 6.3 - 8.2 g/dL [facility] Work Phone: GFR/1.73 sq M.predicted among blacks MDRD (S/P/Bld) [Vol rate/Area] mL/min/{1.73_m2} >60 mL/min [facility] Work Phone: Glucose [Mass/Vol] 101 mg/dL High 70 - 100 mg/dL [facility] Work Phone: Interpretation and review of laboratory results Abnormal [facility] Work Phone: Potassium [Moles/Vol] 4.3 mmol/L 3.5 - 5.1 mmol/L [facility] Work Phone: Sodium [Moles/Vol] 138 mmol/L 135 - 145 mmol/L [facility] Work Phone: Urea nitrogen (BldV) [Mass/Vol] 18 mg/dL 7 - 20 mg/dL [facility] Work Phone: Test Performed by [facility], [address] [place] [address] [facility] Work Phone: ED Provider Noteon 1 ED Provider Note Emergency Department Encounter [facility] EMERGENCY DEPT Patient: Velia Bagley : [...] is no evidence of an ST elevation [place]. CRITICAL CARE TIMETotal Critical Care time was [...] are mis-transcribed.) JARRET TONG MD Acute Care [facility] Jarret Tong MD 09/08/20 1343 [facility] ED Provider Note [facility] EM[facility]GENCY [facility]PT EMERGENCY DEPARTMENT ENCOUNTER Pt [...] patient come from an ECF, SNF, Rehab, Longterm or other Congregate setting: no (If yes [...] Asthma ? COPD (chronic obstructive pulmonary disease) ([facility]) ? Depression ? DVT of leg (deep venous thrombosis) ([facility]) lEFT ? Fibromyalgia ? Headache ? Hyperlipidemia ? Hypertension ? Neuropathy ? TIA (transient ischemic attack) ? Tremors of nervous system SURGICAL HISTORY Past Surgical History: Procedure Laterality Date ? BACK SURGERY ? BRONCHOSCOPY N/A 04/01/2019 BRONCHOSCOPY ALVEOLAR LAVAGE performed by Dayton Fulton MD at [facility] Endoscopy ? HIP SURGERY Right 10/17/2019 ? [...] into the lungs daily, Disp-1 capsule,R-11Normal Umeclidinium [place] 62.5 MCG/INH AEPB Inhale 1 puff into [...] tablet, R-5Nor (more content not included)... Normal [facility] Hemogram w/ Autodiffon 09-08 Abs Baso Cnt 0.0 10*3/uL Normal 0.0-0.2 [facility] Comment on above: Performed By: #### C MP3, TROPN, HEMDF #### [email or web address] [address] [place] [address] Abs Neutrophile Cnt 7.0 10*3/uL Normal 1.8-7.0 [facility] Comment on above: Performed By: #### C MP3RADHAN, HEMDF #### [facility] [address] [place] [address] Basophils/100 WBC (Bld) 0.1 % Normal 0.0-2.0 [facility] Comment on above: Performed By: #### C MP3 TROPN, HEMDF #### [place] [address] [place], [place] Eosinophils (Bld) [#/Vol] 0.0 10*3/uL Normal 0.0-0.5 [facility] Comment on above: Performed By: #### C MP3 TROPN, HEMDF #### [address] [place], [place] Eosinophils/100 WBC (Bld) 0.0 % Low 1.0-6.0 [facility] Comment on above: Performed By: #### C MP3RADHAN, HEMDF #### [place] [address] [place], [place] Erythrocyte distribution width (RBC) [Ratio] 19.2 % High 11.5-14.5 [facility] Comment on above: Performed By: #### C MP3 TROPN, HEMDF #### [place] [address] [place], [place] Granulocytes/100 WBC (Bld) 85.8 % High 40.0-80.0 [facility] Comment on above: Performed By: #### C MP3 TROPN, HEMDF #### [address] [place], [place] Hematocrit (Bld) [Volume fraction] 35.1 % Low 40.0-52.0 [facility] Comment on above: Performed By: #### C MP3, TROPN, HEMDF #### [address] [place] [address] Hemoglobin (Bld) [Mass/Vol] 11.2 g/dL Low 13.0-18.0 [facility] Comment on above: Performed By: #### C MP3, TROPN, HEMDF #### [address] [place], [place] Lymphocytes (Bld) [#/Vol] 0.9 10*3/uL Low 1.0-4.3 [facility] Comment on above: Performed By: #### C MP3, TROPN, HEMDF #### [address] [place], [place] Lymphocytes/100 WBC (Bld) 11.0 % Low 20.0-40.0 [facility] Comment on above: Performed By: #### C MP3, TROPN, HEMDF #### [address] [place], [place] MCH (RBC) [Entitic mass] 26.7 pg Normal 26.0-34.0 [facility] Comment on above: Performed By: #### C MP3, TROPN, HEMDF #### [address] [place], [place] MCHC 31.8 % Low 32.0-36.0 [facility] Comment on above: Performed By: #### C MP3, TROPN, HEMDF #### [address] [place], [place] MCV (RBC) [Entitic vol] 84.0 fL Normal 80.0-98.0 [facility] Comment on above: Performed By: #### C MP3, TROPN, HEMDF #### [address] [place], [place] Monocytes (Bld) [#/Vol] 0.3 10*3/uL Normal 0.0-0.8 [facility] Comment on above: Performed By: #### C MP3, TROPN, HEMDF #### [address] Monocytes/100 WBC (Bld) 3.1 % Normal 2.0-10.0 [facility] Comment on above: Performed By: #### C MP3, TROPN, HEMDF #### [address] [place], [place] Platelet mean volume (Bld) [Entitic vol] 7.2 fL Low 7.4-10.4 [facility] Comment on above: Performed By: #### C GAVI3NASEEM, HEMDF #### [facility] [address] [place], [place] Platelets (Bld) [#/Vol] 275 10*3/uL Normal 140-440 [facility] Comment on above: Performed By: #### C MP3NASEEM, HEMDF #### [facility] [address] [place], [place] RBC (Bld) [#/Vol] 4.18 10*6/uL Low 4.40-5.90 [facility] Comment on above: Performed By: #### C MP3NASEEM, HEMDF #### [facility] [address] [place], [place] WBC (Bld) [#/Vol] 8.2 10*3/uL Normal 3.6-10.7 [facility] Comment on above: Performed By: #### C NASEEM BRONSON, HEMDF #### [facility] [address] [place], [place] Respiratory Panel, Molecular , with COVID-19 [...] management decisions. This assay was developed by [employer] and distributed under an Emergency Use Authorization (EUA) granted by the FDA for the qualitative detection of SARS-CoV-2 nucleic acid. Provider and patient fact sheets can be found at https://www.fda.gov/medi a/414944/download and https://www.fda.gov/medi a/167271/download. [employer] Work Phone: Test Performed by [facility], [facility] [place] [address] [employer] Work Phone: TroponinOrdered By: Leland on 09-08-2020 Troponin I.cardiac [Mass/Vol] ng/mL 0.000 - 0.034 ng/mL [employer] Work Phone: Comment on above: . Test Performed by [facility] [place] [address] [employer] Work Phone: Troponin Ion 09-08-2020 Troponin I.cardiac [Mass/Vol] ng/mL Normal 0.000-0.034 [facility] Comment on above: Result Comment: . Performed By: #### C MP3, TROPN, HEMDF ####[address] [place] [address] Heart Rateon 09-05-2020 Heart Rate Regular [facility] [address] DO Work Phone: Heart Rate Normal [facility] [address] DO Work Phone: Respirationon 08-30-2020 Heart Rate Regular [facility] 2[address] DO Work Phone: Respiration Normal [facility] 2[address] DO Work Phone: Basic Metabolic Panelon 08-03 Anion gap [Moles/Vol] 10 mmol/L Normal 3-13 [facility] Comment on above: Performed By: #### T ROPN, HEMDF, BMP3 #### [facility] [address] [place] [address] Calcium [Mass/Vol] 8.7 mg/dL Normal 8.4-10.4 [facility] Comment on above: Performed By: #### T ROPN, HEMDF, BMP3 #### [address] CO2 [Moles/Vol] 20 mmol/L Low 22-30 [facility] Comment on above: Performed By: #### T ROPN, HEMDF, BMP3 #### [address] Creatinine [Mass/Vol] 1.19 mg/dL Normal 0.52-1.25 [facility] Comment on above: Performed By: #### T ROPN, HEMDF, BMP3 #### [address] GFR/1.73 sq M.predicted among blacks MDRD (S/P/Bld) [Vol rate/Area] 76.7 mL/min/{1.73_m2} Normal >60 [facility] Comment on above: Performed By: #### T ROPN, HEMDF, BMP3 #### [address] GFR/1.73 sq M.predicted among non-blacks MDRD (S/P/Bld) [Vol rate/Area] 66.2 mL/min/{1.73_m2} Normal >60 [facility] Comment on above: Result Comment: KDIG [...] By: #### T ROPJuanita, HEMDF, BMP3 #### [facility] [address] [place], [place] Glucose [Mass/Vol] 95 mg/dL Normal 70-100 [facility] Comment on above: Performed By: #### T ROPN, HEMDF, BMP3 #### [facility] [address] [place], [place] Urea nitrogen [Mass/Vol] 21 mg/dL High 7-20 [facility] Comment on above: Performed By: #### T ROPN, HEMDF, BMP3 #### [facility] [address] [place], [place] Chloride [Moles/Vol] 106 mmol/L Normal 98-107 [facility] Comment on above: Performed By: #### T SUKHDEEPN, HEMDF, BMP3 #### [facility] [address] [place], [place] Potassium [Moles/Vol] 3.9 mmol/L Normal 3.5-5.1 [facility] Comment on above: Performed By: #### T BROOKE, HEMDF, BMP3 #### [facility] [address] [place], [place] Sodium [Moles/Vol] 136 mmol/L Normal 135-145 [facility] Comment on above: Performed By: #### T ROPN, HEMDF, BMP3 #### [facility] [address] [place], [place] Basic Metabolic PanelOrdered By: Felisha Rader on 08-25-2020 Anion gap [Moles/Vol] 10 mmol/L 3 - 13 mmol/L [facility] Work Phone: Calcium [Mass/Vol] 8.7 mg/dL 8.4 - 10. 4 mg/dL [facility] Work Phone: Chloride [Moles/Vol] 106 mmol/L 98 - 10 7 mmol/L [facility] Work Phone: CO2 [Moles/Vol] 20 mmol/L Low 22 - 30 mmol/L [facility] Work Phone: Creatinine [Mass/Vol] 1.19 mg/dL 0.52 - 1.25 mg/dL [employer] Work Phone: EGFR IF NonAfrican Bahraini 66.2 mL/min >60 [employer] Work Phone: Comment on above: KDIGO guidelines [...] [Mass/Vol] 95 mg/dL 70 - 100 mg/dL [employer] Work Phone: Interpretation and review of laboratory results Abnormal [employer] Work Phone: Potassium [Moles/Vol] 3.9 mmol/L 3.5 - 5.1 mmol/L [employer] Work Phone: Sodium [Moles/Vol] 136 mmol/L 135 - 145 mmol/L [employer] Work Phone: Urea nitrogen (BldV) [Mass/Vol] 21 mg/dL High 7 - 20 mg/dL [employer] Work Phone: Test Performed by [facility], [address] [place] [address] [employer] Work Phone: CR Chest Portableon 04-24-20 21 CR Chest Portable Patient Name: VELIA SALMERON Diagnostic Radiology ACCESSION EXAM DATE/TIME PROCEDURE ORDERING PROVIDER [id number] 08/25/2020 14:37 EDT CR Chest Portable [id number] MOSELEY CPT code 19278 Reason For Exam (CR Chest Portable) syncope [...] Transcribed Date and Time: 08/25/2020 2:[address] [facility] CT Head WO ContrastOrdered B y: Felisha Sealouis on 08-25-2020 Patient Name: VELIA SALMERON Computed Tomography ACCESSION EXAM DATE/TIME PROCEDURE ORDERING PROVIDER [id number] 08/25/2020 14:[address] Head or Brain w/o [id number] Felisha CAI Contrast CPT code 85707 Reason For Exam (CT Head or Brain [...] JOHN Transcribed Date and Time: 08/25/2020 2:17 [facility] Work Phone: [place] From [facility] - 08/25/2020 2:20 PM EDT Patient Name: VELIA BAGLEY Computed Tomography ACCESSION EXAM DATE/TIME PROCEDURE ORDERING PROVIDER [id number] 08/25/2020 14:[address] Head or Brain w/o [id number] -MORAH, J Contrast CPT code 78671 Reason For Exam (CT Head or Brain [...] JOHN Transcribed Date and Time: 08/25/2020 2:17 [facility] Work Phone: CT Head or Brain w/o Contras ton 08-25-2020 CT Head or Brain w/o Contrast Patient Name: VELIA BAGLEY Computed Tomography ACCESSION EXAM DATE/TIME PROCEDURE ORDERING PROVIDER [id number] 08/25/2020 14:[address] Head or Brain w/o [id number] -MORAH, J Contrast CPT code 23525 Reason For Exam (CT Head or Brain [...] Transcribed Date and Time: 08/25/2020 2:17 Normal [facility] ED Provider Noteon ED Provider Note [facility] EMERGENCY DEPT EMERGENCY DEPARTMENT ENCOUNTER Pt [...] patient come from an ECF, SNF, Rehab, Longterm or other Congregate setting: no (If yes [...] LAVAGE performed by Dayton Fulton MD at [facility] Endoscopy ? HIP SURGERY Right 10/17/2019 ? [...] 0.8 m (more content not included)... Normal [facility] 08-25-2020 Glucose [Mass/Vol] 110 mg/dL High 70-100 [facility] Comment on above: Result Comment: Test performed by glucose meter. Results may be 10%-15% lower than serum/plasma values. (CLIA ID [id number]) Performed By: #### B GLU #### [facility] [address] [place] [phone] Hemogram (CBC) w/Auto DiffOr dered By: Felisha [...] Interpretation and review of laboratory results Abnormal [employer] Work Phone: Lymphocytes (Bld) [#/Vol] 1.5 10*3/uL [...] [#/Vol] 0.5 10*3/uL 0.0 - 0.8 10*3/uL [employer] Work Phone: Monocytes/100 WBC (Bld) 7.7 % 2.0 - 10.0 % [employer] Work Phone: Platelet distribution width (Bld) [Ratio] 18.2 % High 11.5 - 14.5 % [employer] Work Phone: Platelet mean volume (Bld) [Entitic vol] 7.1 fL Low 7.4 - 10.4 fL [employer] Work Phone: Platelets (Bld) [#/Vol] 275 10*3/uL 140 - 440 10*3/uL [employer] Work Phone: RBC (Bld) [#/Vol] 3.92 10*6/uL Low 4.40 - 5.9 0 10*6/uL [employer] Work Phone: WBC (Bld) [#/Vol] 6.5 10*3/uL 3.6 - 10.7 10*3/uL [employer] Work Phone: Test Performed by [facility], [address] [place] [address] [facility] Work Phone: Hemogram w/ Autodiffon 08-25 Abs Baso Cnt 0.0 10*3/uL Normal 0.0-0.2 [facility] Comment on above: Performed By: #### T ROPN, HEMDF, BMP3 #### [facility] [address] [place] [phone] Abs Neutrophile Cnt 4.5 10*3/uL Normal 1.8-7.0 [facility] [employer] Comment on above: Performed By: #### T ROPN, HEMDF, BMP3 #### [facility] [address] [place] [phone] Basophils/100 WBC (Bld) 0.1 % Normal 0.0-2.0 [facility] Comment on above: Performed By: #### T BROOKE HEMDF, BMP3 #### [address] [place], [place] Eosinophils (Bld) [#/Vol] 0.0 10*3/uL Normal 0.0-0.5 [facility] Comment on above: Performed By: #### T BROOKE HEMDF, BMP3 #### [address] [address] [place], [place] Eosinophils/100 WBC (Bld) 0.0 % Low 1.0-6.0 [facility] Comment on above: Performed By: #### T BROOKE HEMDF, BMP3 #### [address] [address] [place], [place] Erythrocyte distribution width (RBC) [Ratio] 18.2 % High 11.5-14.5 [facility] Comment on above: Performed By: #### T BROOKE HEMDF, BMP3 #### [address] [address] [place], [place] Granulocytes/100 WBC (Bld) 68.9 % Normal 40.0-80.0 [facility] Comment on above: Performed By: #### T BROOKE HEMDF, BMP3 #### [address] Hematocrit (Bld) [Volume fraction] 32.5 % Low 40.0-52.0 [facility] Comment on above: Performed By: #### T BROOKE HEMDF, BMP3 #### [place] [address] [place], [place] Hemoglobin (Bld) [Mass/Vol] 10.3 g/dL Low 13.0-18.0 [facility] Comment on above: Performed By: #### T BROOKE HEMDF, BMP3 #### [address] [address] [place], [place] Lymphocytes (Bld) [#/Vol] 1.5 10*3/uL Normal 1.0-4.3 [facility] Comment on above: Performed By: #### T ROPJuanita HEMDF, BMP3 #### [facility] [address] [place], [place] Lymphocytes/100 WBC (Bld) 23.3 % Normal 20.0-40.0 [facility] Comment on above: Performed By: #### T ROPN, HEMDF, BMP3 #### [facility] [address] [place], [place] MCH (RBC) [Entitic mass] 26.4 pg Normal 26.0-34.0 [facility] Comment on above: Performed By: #### T ROPN, HEMDF, BMP3 #### [place] [address] [place] MCHC 31.8 % Low 32.0-36.0 [facility] Comment on above: Performed By: #### T ROPN, HEMDF, BMP3 #### [place] [address] [place] MCV (RBC) [Entitic vol] 82.9 fL Normal 80.0-98.0 [facility] Comment on above: Performed By: #### T ROPN, HEMDF, BMP3 #### [place] [address] [place], [place] Monocytes (Bld) [#/Vol] 0.5 10*3/uL Normal 0.0-0.8 [facility] Comment on above: Performed By: #### T ROPN, HEMDF, BMP3 #### [address] [place], [place] Monocytes/100 WBC (Bld) 7.7 % Normal 2.0-10.0 [facility] Comment on above: Performed By: #### T ROPN, HEMDF, BMP3 #### [place] [address] [place], [place] Platelet mean volume (Bld) [Entitic vol] 7.1 fL Low 7.4-10.4 [facility] Comment on above: Performed By: #### T ROPN, HEMDF, BMP3 #### [address] [place] [address] Platelets (Bld) [#/Vol] 275 10*3/uL Normal 140-440 [facility] Comment on above: Performed By: #### T NATHAN COX, BMP3 #### [address] [address] [place], [place] RBC (Bld) [#/Vol] 3.92 10*6/uL Low 4.40-5.90 [facility] Comment on above: Performed By: #### Yasmany COX HEMJOSE MARTIN, BMP3 #### [address] [address] [place], [place] WBC (Bld) [#/Vol] 6.5 10*3/uL Normal 3.6-10.7 [facility] Comment on above: Performed By: #### NATHAN ROSAS, BMP3 #### [address] POCT GlucoseOrdered By: Unkn own Result on 08-25-2020 Glucose [Mass/Vol] 110 mg/dL High 70 - 100 mg/dL [facility] Work Phone: Comment on above: Test performed by gl ucose meter. Results may be 10%-15% lower than serum/plasma values. (CLIA ID [id number]) Interpretation and review of laboratory results Abnormal [facility] Work Phone: Test Performed by [facility], [address] [place] [address] [facility] Work Phone: Troponin Ion 08-25-2020 Troponin I.cardiac [Mass/Vol] ng/mL Normal 0.000-0.034 [facility] Comment on above: Result Comment: . Performed By: #### Yasmany COX HEMJOSE MARTIN, BMP3 #### [facility] [address] Troponin [id number] By: Felisha myers on 08-25-2020 Troponin I.cardiac [Mass/Vol] ng/mL 0.000 - 0.034 ng/mL [facility] Work Phone: Comment on above: . Test Performed by [facility], [address] [place] [id number] [place], [place] [id number] Work Phone: XR CHEST PORTABLEOrdered By: Felisha Rader on 08-25-2020 Patient Name: VELIA SALMERON Diagnostic Radiology ACCESSION EXAM DATE/TIME PROCEDURE ORDERING PROVIDER [id number] 08/25/2020 14:37 EDT CR Chest Portable [id number] Felisha CAI CPT code 31723 Reason For Exam (CR Chest Portable) syncope [...] RISA Transcribed Date and Time: 08/25/2020 2:51 [facility] Work Phone: [facility], [facility] Incoming Radiology Results From [facility] - 08/25/2020 2:53 PM EDT Patient Name: VELIA BAGLEY Diagnostic Radiology ACCESSION EXAM DATE/TIME PROCEDURE ORDERING PROVIDER [id number] 08/25/2020 14:37 EDT CR Chest Portable [id number] REESE CPT code 53948 Reason For Exam (CR Chest Portable) syncope [...] CASE MANAGEMon 08-06-2020 CASE MANAGEM HNO ID: [id number] Author: Jd (Rn) BULL Huertas Service: Care Management Author Type: Registered Nurse Type: Care Mgt Progress Note Filed: 08/06/2020 3:36 PM Note Text: CARE MANAGEMENT DISCHARGE NOTE SERVICE DATE: 08/06/2020 SERVICE TIME: 3:28 PM LOS: 7 days Admission Date: 07/29/2020 DISCHARGE ARRANGEMENT (list agency and phone number) Discharge Arrangement: Home Senior Living Care: Nursing;PT;OT;Social Work;Other Service (WELLNESS SPECIALIST) Provider Name: Rachel Rayo CAREGIVER ASSESSMENT: Caregiver is ready, willing and able to meet the patient's needs as recommended by the inter-professional team:: Yes Does the patient have an acute stroke diagnosis, or has the patient had a stroke during this admission?: No Patient's transition needs and plan for meeting these needs: To daughter's home at [address] [place] [id number] [facility] HANDOFF COMMUNICATION: Handoff to: Primary Care Physician Primary Care Physician Name/Phone: summary of care sent to PCP TRANSPORTATION ARRANGEMENTS: Transportation Arrangements: Car (with family) ADDITIONAL CONTACT RESOURCES: see below Discharge Information Row Name ED to Hosp-Admission (Current) from 07/29/2020 in [place] [address] NEURO/CARD Home Health Care Agency [facility] Health Start of Care 08/07/20 Durable Medical Equipment Agency [email or web address] Equipment Needed Home oxygen concentrator and portable oxygen tank Pt dc to daughter's house at [address] [place], [address] today with [facility] starting care tomorrow at the daughter's house and [facility] to deliver portable oxygen and home concentrator to pt's daughter's house today. 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 SIGNATURE: Jd Huertas RN PATIENT NAME: Velia Bagley DATE: August 06, 2020 TIME: 3:28 PM PAGER/CONTACT #: [phone] [facility] CASE MANAGEM HNO ID: [id number] Author: Jd (Rn) BULL Huertas Service: Care Management Author Type: Registered Nurse Type: Care Mgt Progress Note Filed: 08/06/2020 12:35 PM Note Text: CARE MANAGEMENT PROGRESS NOTE SERVICE DATE: 08/06/2020 SERVICE TIME: 12:32 PM LOS: 7 days [place] of Choice Given: Yes Level of Care [...] home oxygen to pt's home address in [place], [place] and even to his daughter's home at [address] [place] [address]. The patient is planning to dc to his daughter's home because his apartment is under renovation. Pt has no preference in [facility] agency. I will update patient with name of [facility] agency when arranged. Pt states his family will pick him up from the hospital when ready for dc. Will need [facility] orders for PT/OT/SN and oxygen script at dc. SIGNATURE: Jd Huertas RN PATIENT NAME: Velia Bagley DATE: August 06, 2020 TIME: 12:32 PM PAGER/CONTACT #: [phone] [facility] CBC Pnl Bld Autoon 1 Erythrocyte distribution width (RBC) [Ratio] 16.3 % High 11.5-15.0 [facility] Comment on above: Order Comment: Speci men Type: BLOOD SPECIMEN Performed By: #### 3 4528-0 #### [facility] CLIA [id number] [address] [place] [address] Hematocrit (Bld) [Volume fraction] 31.4 % Low 39.0-51.0 [facility] Comment on above: Order Comment: Speci men Type: BLOOD SPECIMEN Performed By: #### 3 4528-0 #### [facility] CLIA [id number] [address] [place] [address] Hemoglobin (Bld) [Mass/Vol] 10.0 g/dL Low 13.0-17.0 [facility] Comment on above: Order Comment: Speci men Type: BLOOD SPECIMEN Performed By: #### 3 4528-0 #### [facility] CLIA [id number] [address] [place] [address] MCH (RBC) [Entitic mass] 26.6 pg Normal 26.0-34.0 [facility] Comment on above: Order Comment: Speci men Type: BLOOD SPECIMEN Performed By: #### 3 4528-0 #### [facility] CLIA [id number] [address] [place] [address] MCHC (RBC) [Mass/Vol] 31.8 g/dL Normal 30.5-36.0 [facility] Comment on above: Order Comment: Speci men Type: BLOOD SPECIMEN Performed By: #### 3 4528-0 #### [facility] CLIA [id number] [address] [place] [address] MCV (RBC) [Entitic vol] 83.5 fL Normal 80.0-100.0 [facility] Comment on above: Order Comment: Speci men Type: BLOOD SPECIMEN Performed By: #### 3 4528-0 #### [facility] CLIA [id number] [address] [place] [address] Nucleated RBC (Bld) [#/Vol] 10*3/uL Normal <0.01 [facility] Comment on above: Order Comment: Speci men Type: BLOOD SPECIMEN Performed By: #### 3 4528-0 #### [facility] CLIA [id number] [address] [place] [address] Platelet mean volume (Bld) [Entitic vol] 9.5 fL Normal 9.0-12.7 [facility] Comment on above: Order Comment: Speci men Type: BLOOD SPECIMEN Performed By: #### 3 4528-0 #### [facility] CLIA [id number] [address] [place] [address] Platelets (Bld) [#/Vol] 212 10*3/uL Normal 150-400 [facility] Comment on above: Order Comment: Speci men Type: BLOOD SPECIMEN Performed By: #### 3 4528-0 #### [facility] CLIA [id number] [address] [place] [address] RBC (Bld) [#/Vol] 3.76 10*6/uL Low 4.20-6.00 [facility] Comment on above: Order Comment: Speci men Type: BLOOD SPECIMEN Performed By: #### 3 4528-0 #### [facility] CLIA [id number] [address] [place] [address] WBC (Bld) [#/Vol] 7.69 10*3/uL Normal 3.70-11.00 [facility] Comment on above: Order Comment: Speci men Type: BLOOD SPECIMEN Performed By: #### 3 4528-0 #### [facility] CLIA [id number] [address] [place] [address] Comp Metab 2000 Pnl SerPlon 08-06-2020 Albumin [Mass/Vol] 3.2 g/dL Low 3.9-4.9 [facility] Comment on above: Order Comment: Speci men Type: URINE SPECIMEN Performed By: #### 2 4356-8 #### [facility] CLIA [id number] [address] [place] [address] ALP [Catalytic activity/Vol] 86 U/L Normal 38-113 [facility] Comment on above: Order Comment: Speci men Type: URINE SPECIMEN Performed By: #### 2 4356-8 #### [facility] CLIA [id number] [address] [place] [address] ALT With P-5'-P [Catalytic activity/Vol] 27 U/L Normal 10-54 [facility] Comment on above: Order Comment: Speci men Type: URINE SPECIMEN Performed By: #### 2 4356-8 #### [facility] CLIA [id number] [address] [place] [address] Anion gap [Moles/Vol] 13 mmol/L Normal 9-18 [facility] Comment on above: Order Comment: Speci men Type: URINE SPECIMEN Performed By: #### 2 4356-8 #### [facility] CLIA [id number] [address] [place] [address] AST With P-5'-P [Catalytic activity/Vol] 44 U/L High 14-40 [facility] Comment on above: Order Comment: Speci men Type: URINE SPECIMEN Performed By: #### 2 4356-8 #### [facility] CLIA [id number] [address] [place] [address] Bilirubin [Mass/Vol] 0.4 mg/dL Normal 0.2-1.3 [facility] Comment on above: Order Comment: Speci men Type: URINE SPECIMEN Performed By: #### 2 4356-8 #### [facility] CLIA [id number] [address] [place] [address] Calcium [Mass/Vol] 8.0 mg/dL Low 8.5-10.2 [facility] Comment on above: Order Comment: Speci men Type: URINE SPECIMEN Performed By: #### 2 4356-8 #### [facility] CLIA [id number] [address] [place] [address] Chloride [Moles/Vol] 108 mmol/L High 97-105 [facility] Comment on above: Order Comment: Speci men Type: URINE SPECIMEN Performed By: #### 2 4356-8 #### [facility] CLIA [id number] [address] [place] [address] CO2 [Moles/Vol] 18 mmol/L Low 22-30 [facility] Comment on above: Order Comment: Speci men Type: URINE SPECIMEN Performed By: #### 2 4356-8 #### [facility] CLIA [id number] [address] [place] [address] Creatinine [Mass/Vol] 0.83 mg/dL Normal 0.73-1.22 [facility] Comment on above: Order Comment: Speci men Type: URINE SPECIMEN Performed By: #### 2 4356-8 #### [facility] CLIA [id number] [address] [place] [address] GFR/1.73 sq M.predicted MDRD (S/P/Bld) [Vol rate/Area] mL/min/{1.73_m2} Normal [facility] Comment on above: Order Comment: [...] GFR. Performed By: #### 2 4356-8 #### [facility] CLIA [id number] [address] [place] [address] Glucose [Mass/Vol] 76 mg/dL Normal 74-99 [facility] Comment on above: Order Comment: Speci men Type: URINE SPECIMEN Result Comment: The [place] [employer] (ADA) provides guidance for cutoff [...] Standards of Medical Care in Diabetes 2016, [place] [employer]. Diabetes Care. 2016.39(Suppl 1). Performed By: #### 2 4356-8 #### [facility] CLIA [id number] [address] [place] [address] Potassium [Moles/Vol] 3.0 mmol/L Low 3.7-5.1 [facility] Comment on above: Order Comment: Speci men Type: URINE SPECIMEN Performed By: #### 2 4356-8 #### [facility] CLIA [id number] [address] [place] [address] Protein [Mass/Vol] 5.7 g/dL Low 6.3-8.0 [facility] Comment on above: Order Comment: Speci men Type: URINE SPECIMEN Performed By: #### 2 4356-8 #### [facility] CLIA [id number] [address] [place] [address] Sodium [Moles/Vol] 139 mmol/L Normal 136-144 [facility] Comment on above: Order Comment: Speci men Type: URINE SPECIMEN Performed By: #### 2 4356-8 #### [facility] CLIA [id number] [address] [place] [address] Urea nitrogen [Mass/Vol] 19 mg/dL Normal 9-24 [facility] Comment on above: Order Comment: Speci men Type: URINE SPECIMEN Performed By: #### 2 4356-8 #### [facility] CLIA [id number] [address] [place] [address] NURSING PROGon 08-06-2020 NURSING PROG HNO ID: [id number] Author: Faiza Smith RN Service: Neurology General Author Type: Registered Nurse Type: Nursing Progress Note Filed: 08/06/2020 11:52 AM Note Text: CASE MANAGEMENT HOME OXYGEN EVALUATION SERVICE DATE: 08/06/2020 Patient Location: [id number] * SERVICE TIME: 11:45 Assessment: Patient's SPO2 on room air at rest is 89 %. Patient's SPO2 on room air with exercise is 87 %. Patient's SPO2 on 2 L/min O2 with exercise is 89 %. SIGNATURE: Faiza Smith RN PATIENT NAME: Velia Bagley DATE: August 06, 2020 TIME: 11:43 AM PAGER/CONTACT #: Nursing Progress Note Patient Name: Velia Bagley Patient Location: [place] [address]/[facility] 05-04 Daily Note: ambulatory pulse ox completed This note was completed by: Faiza Smith RN [facility] NUTRITIONon 08-06-2020 NUTRITION HNO ID: [id number] Author: Liv Engel) NICKI Mclean Service: Nutrition [...] evidenced by: Intake records Estimated kilocalorie needs: 4864-3771 Calorie Calculation Method: 30-35 kcals/kg Estimated protein [...] August 06, 2020 TIME: 2:30 PM PAGER: [phone] [facility] PLAN OF CAREon 08-06-2020 PLAN OF CARE HNO ID: [id number] Author: Sulma Green (Corn Shredder) Service: Pharmacy Author Type: ? Type: Plan of Care Filed: 08/06/2020 5:08 PM Note Text: PHARMACY BEDSIDE DELIVERY SERVICE Patient Name: Velia Bagley The marked outpatient medications were Filled at: [facility] and delivered to the patient's bedside to [...] tablet Commonly known as: ALDACTONE Sulma Green (Corn Shredder) PAGER: [phone] [place] [phone] August 06, 2020 5:07 PM Normal [facility] PROGRESSon 08-06-2020 PROGRESS HNO ID: [id number] Author: Jelani Proctor Service: Infectious Disease Author [...] data: reviewed Imaging data: reviewed Jelani Proctor Pager:[phone] Date of service: 08/06/2020 Time of service: 3:07 PM This note is not final until Authenticated by responsible provider. [facility] PROGRESS HNO ID: [id number] Author: Jaxon Coleman MD Service: Hospital Medicine Author Type: Physician Type: Progress Notes Filed: 08/05/2020 11:04 PM Note Text: DEPARTMENT OF HOSPITAL MEDICINE PROGRESS NOTE SERVICE DATE: 08/05/2020 SERVICE TIME: 10:57 PM Hospital Medicine/Primary Attending: Jaxon Coleman MD NIGHT AND WEEKEND COVERAGE: After 7pm please page [phone] CHIEF COMPLAINT: SOB SUBJECTIVE: 60 yrs old [...] 2020 TIME: 10:57 PM PAGER/CONTACT #: Normal [facility] THERAPY NTon 08-06-2020 THERAPY NT HNO ID: [id number] Author: Arielle HarperOtr/Fiorella Anne Service: Occupational Therapy Author Type: Occupational Therapist Type: Therapy (PT/OT/Speech/Resp) Filed: 08/06/2020 1:40 PM Note Text: Occupational Therapy Evaluation SERVICE DATE: 08/06/2020 SERVICE TIME: 1305 to 1330 ROOM: [place] [address] Recommended Discharge Disposition: Home OT Recommended Discharge [...] Patient Lives With: Family (son) Assistance 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: 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) Entry To Home: No Stairs [...] of daily living (ADL) Interventions Provided: Evaluation;Self Senior Living Management (40228) $ Evaluation-Low (71363) Billed Units: 1 unit Self Senior Living Management (47476) Treatment Minutes: 8 $ Self Senior Living Management (96737) Billed Units: 1 unit Initiated education re: [...] August 06, 2020 TIME: 1:39 PM Normal [facility] THERAPY NT HNO ID: [id number] Author: Niall HarperPtVibha Willson PT Service: Physical Therapy Author Type: Physical Therapist Type: Therapy (PT/OT/Speech/Resp) Filed: 08/06/2020 10:42 AM Note Text: Physical Therapy Evaluation SERVICE DATE: 08/06/2020 SERVICE TIME: 3527 to 102 ROOM: [id number] Recommended Discharge Disposition: Home PT Recommended Discharge [...] Patient Lives With: Family (son) Assistance 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: 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) Entry To Home: No Stairs [...] Diagnosis: Reduced mobility-other Interventions Provided: Evaluation;Therapeutic Activity (94473) $ Evaluation-Moderate (74032) Billed Units: 1 unit Therapeutic Activity (72177) Treatment Minutes: 10 $ Therapeutic Activity (95740) Billed Units: 1 unit Educated in expectations [...] August 06, 2020 TIME: 10:39 AM [facility] NURSING PROGon 08-05-2020 NURSING PROG HNO ID: [id number] Author: Elena (Rn) BULL Wilson Service: Nursing Author Type: Registered Nurse Type: Nursing Progress Note Filed: 08/05/2020 3:24 PM Note Text: Pt unable to tolerate walking more than 20 feet with walker due to weakness. Ambulatory pulse ox 88% on RA. Pt safely returned to chair and open to PT eval and rehab if necessary to rebuild strength. Normal [facility] PROGRESSon 08-04-2020 PROGRESS HNO ID: [id number] Author: Jaxon Coleman MD Service: Hospital Medicine Author Type: Physician Type: Progress Notes Filed: 08/04/2020 9:53 PM Note Text: DEPARTMENT OF HOSPITAL MEDICINE PROGRESS NOTE SERVICE DATE: 08/04/2020 SERVICE TIME: 9:27 PM Hospital Medicine/Primary Attending: Jaxon Coleman MD NIGHT AND WEEKEND COVERAGE: After 7pm please page [phone] CHIEF COMPLAINT: Cough, SOB SUBJECTIVE: 60 yrs [...] 2020 TIME: 9:27 PM PAGER/CONTACT #: Normal [facility] CASE MANAGEMon 08-03-2020 CASE MANAGEM HNO ID: [id number] Author: Jd (Rn) BULL Huertas Service: Care [...] discharged over the weekend. The covering social work coordinator will call [facility] rep Lindsay Fraia [phone] to send her script and documentation if oxygen is needed. [facility] does not monitor [employer] on the weekend. They are able to deliver oxygen concentrator to his home in [place], [place] and could even deliver the portable tank to the bedside. The patient plans to return home at dc with family to transport when ready for dc. SIGNATURE: Jd Huertas RN PATIENT NAME: Velai Bagley DATE: August 03, 2020 TIME: 1:50 PM PAGER/CONTACT #: [phone] [facility] HEPATIC FUNCTION PNLon 08-03 Albumin [Mass/Vol] 3.4 g/dL Low 3.9-4.9 [facility] Comment on above: Order Comment: Speci men Type: BLOOD SPECIMEN Performed By: #### H FP #### [facility] CLIA [id number] [address] [place] [address] ALP [Catalytic activity/Vol] 86 U/L Normal 38-113 [facility] Comment on above: Order Comment: Speci men Type: BLOOD SPECIMEN Performed By: #### H FP #### [facility] CLIA [id number] [address] [place] [address] ALT With P-5'-P [Catalytic activity/Vol] 18 U/L Normal 10-54 [facility] Comment on above: Order Comment: Speci men Type: BLOOD SPECIMEN Performed By: #### H FP #### [facility] CLIA [id number] [address] [place] [address] AST With P-5'-P [Catalytic activity/Vol] 37 U/L Normal 14-40 [facility] Comment on above: Order Comment: Speci men Type: BLOOD SPECIMEN Performed By: #### H FP #### [facility] CLIA [id number] [address] [place] [address] Bilirubin [Mass/Vol] 0.2 mg/dL Normal 0.2-1.3 [facility] Comment on above: Order Comment: Speci men Type: BLOOD SPECIMEN Performed By: #### H FP #### [facility] CLIA [id number] [address] [place] [address] Bilirubin.conjugated [Mass/Vol] mg/dL Normal <0.2 [facility] Comment on above: Order Comment: Speci men Type: BLOOD SPECIMEN Performed By: #### H FP #### [facility] CLIA [id number] [address] [place] [address] Protein [Mass/Vol] 5.6 g/dL Low 6.3-8.0 [facility] Comment on above: Order Comment: Speci men Type: BLOOD SPECIMEN Performed By: #### H FP #### [facility] CLIA [id number] [address] [place] [address] PROGRESSon 08-03-2020 PROGRESS HNO ID: [id number] Author: Danny Navas Service: Infectious Disease Author [...] 08/03/2020 Time of service: 5:31 PM Normal [facility] PROGRESS HNO ID: [id number] Author: Neymar Clay Service: Hospital Medicine Author [...] 03, 2020 TIME: 12:49 PM PAGER: Normal [facility] PT Pnl PPPon 08-03-2020 INR Coag (PPP) [Relative time] 1.1 {INR} Normal 0.9-1.3 [facility] Comment on above: Order Comment: Speci men Type: BLOOD SPECIMEN Result Comment: Danielle min K Antagonist (VKA) Therapeutic Range: INR 2 to 3 (Target INR of 2.5) Note: For patients treated with VKA drugs, such as warfarin, the [place] [employer] 2012 Guideline recommends [...] Chest 2012, 141:7S-47S Jimbo RA, et al. [facility] 2017, 70: 252-289 Performed By: #### 3 4528-0 #### [facility] CLIA [id number] [address] [place] [address] PT Coag (PPP) [Time] 11.1 s Normal 9.7-13.0 [facility] Comment on above: Order Comment: Speci men Type: BLOOD SPECIMEN Performed By: #### 3 4528-0 #### [facility] CLIA [id number] [address] [place] [address] Bas Metab 2000 Pnl SerPlon 0 08-02-2020 Anion gap [Moles/Vol] 11 mmol/L Normal 9-18 [facility] Comment on above: Order Comment: Speci men Type: URINE SPECIMEN Performed By: #### 2 4356-8 #### [facility] CLIA [id number] [address] [place] [address] Calcium [Mass/Vol] 7.8 mg/dL Low 8.5-10.2 [facility] Comment on above: Order Comment: Speci men Type: URINE SPECIMEN Performed By: #### 2 4356-8 #### [facility] CLIA [id number] [address] [place] [address] Chloride [Moles/Vol] 110 mmol/L High 97-105 [facility] Comment on above: Order Comment: Speci men Type: URINE SPECIMEN Performed By: #### 2 4356-8 #### [facility] CLIA [id number] [address] [place] [address] CO2 [Moles/Vol] 17 mmol/L Low 22-30 [facility] Comment on above: Order Comment: Speci men Type: URINE SPECIMEN Performed By: #### 2 4356-8 #### [facility] CLIA [id number] [address] [place] [address] Creatinine [Mass/Vol] 1.09 mg/dL Normal 0.73-1.22 [facility] Comment on above: Order Comment: Speci men Type: URINE SPECIMEN Performed By: #### 2 4356-8 #### [facility] CLIA [id number] [address] [place] [address] GFR/1.73 sq M.predicted MDRD (S/P/Bld) [Vol rate/Area] mL/min/{1.73_m2} Normal [facility] Comment on above: Order Comment: [...] GFR. Performed By: #### 2 4356-8 #### [facility] CLIA [id number] [address] [place] [address] Glucose [Mass/Vol] 118 mg/dL High 74-99 [facility] Comment on above: Order Comment: Speci men Type: URINE SPECIMEN Result Comment: The [place] [employer] (ADA) provides guidance for cutoff [...] Standards of Medical Care in Diabetes 2016, [place] [employer]. Diabetes Care. 2016.39(Suppl 1). Performed By: #### 2 4356-8 #### [facility] CLIA [id number] [address] [place] [address] Potassium [Moles/Vol] 3.7 mmol/L Normal 3.7-5.1 [facility] Comment on above: Order Comment: Speci men Type: URINE SPECIMEN Performed By: #### 2 4356-8 #### [facility] CLIA [id number] [address] [place] [address] Sodium [Moles/Vol] 138 mmol/L Normal 136-144 [facility] Comment on above: Order Comment: Speci men Type: URINE SPECIMEN Performed By: #### 2 4356-8 #### [facility] CLIA [id number] [address] [place] [address] Urea nitrogen [Mass/Vol] 11 mg/dL Normal 9-24 [facility] Comment on above: Order Comment: Speci men Type: URINE SPECIMEN Performed By: #### 2 4356-8 #### [facility] CLIA [id number] [address] [place] [address] CBC Pnl Bld Autoon 1 Erythrocyte distribution width (RBC) [Ratio] 16.7 % High 11.5-15.0 [facility] Comment on above: Order Comment: Speci men Type: BLOOD SPECIMEN Performed By: #### 3 4528-0 #### [facility] CLIA [id number] [address] [place] [address] Hematocrit (Bld) [Volume fraction] 30.1 % Low 39.0-51.0 [facility] Comment on above: Order Comment: Speci men Type: BLOOD SPECIMEN Performed By: #### 3 4528-0 #### [facility] CLIA [id number] [address] [place] [address] Hemoglobin (Bld) [Mass/Vol] 9.7 g/dL Low 13.0-17.0 [facility] Comment on above: Order Comment: Speci men Type: BLOOD SPECIMEN Performed By: #### 3 4528-0 #### [facility] CLIA [id number] [address] [place] [address] MCH (RBC) [Entitic mass] 26.7 pg Normal 26.0-34.0 [facility] Comment on above: Order Comment: Speci men Type: BLOOD SPECIMEN Performed By: #### 3 4528-0 #### [facility] CLIA [id number] [address] [place] [address] MCHC (RBC) [Mass/Vol] 32.2 g/dL Normal 30.5-36.0 [facility] Comment on above: Order Comment: Speci men Type: BLOOD SPECIMEN Performed By: #### 3 4528-0 #### [facility] CLIA [id number] [address] [place] [address] MCV (RBC) [Entitic vol] 82.9 fL Normal 80.0-100.0 [facility] Comment on above: Order Comment: Speci men Type: BLOOD SPECIMEN Performed By: #### 3 4528-0 #### [facility] CLIA [id number] [address] [place] [address] Nucleated RBC (Bld) [#/Vol] 10*3/uL Normal <0.01 [facility] Comment on above: Order Comment: Speci men Type: BLOOD SPECIMEN Performed By: #### 3 4528-0 #### [facility] CLIA [id number] [address] [place] [address] Platelet mean volume (Bld) [Entitic vol] 11.0 fL Normal 9.0-12.7 [facility] Comment on above: Order Comment: Speci men Type: BLOOD SPECIMEN Performed By: #### 3 4528-0 #### [facility] CLIA [id number] [address] [place] [address] Platelets (Bld) [#/Vol] 138 10*3/uL Low 150-400 [facility] Comment on above: Order Comment: Speci men Type: BLOOD SPECIMEN Performed By: #### 3 4528-0 #### [facility] CLIA [id number] [address] [place] [address] RBC (Bld) [#/Vol] 3.63 10*6/uL Low 4.20-6.00 [facility] Comment on above: Order Comment: Speci men Type: BLOOD SPECIMEN Performed By: #### 3 4528-0 #### [facility] CLIA [id number] [address] [place] [address] WBC (Bld) [#/Vol] 1.89 10*3/uL Low 3.70-11.00 [facility] Comment on above: Order Comment: Speci men Type: BLOOD SPECIMEN Performed By: #### 3 4528-0 #### [facility] CLIA [id number] [address] [place] [address] CRP SerPl-ncon 08-02-2020 CRP [Mass/Vol] 6.9 mg/dL High <0.9 [facility] Comment on above: Order Comment: Speci men Type: URINE SPECIMEN Performed By: #### 2 4356-8 #### [facility] CLIA [id number] [address] [place] [address] D dimer FEU PPP-mCncon 08-02 D DIMER AGE-RELATED CUTOFF 590 ng/mL FEU Normal [facility] Comment on above: Order Comment: Speci men Type: URINE SPECIMEN Performed By: #### 2 4356-8 #### [facility] CLIA [id number] [address] [place] [address] Fibrin D-dimer FEU (PPP) [Mass/Vol] 500 ng/mL FEU High <500 [facility] Comment on above: Order Comment: Speci men Type: URINE SPECIMEN Performed By: #### 2 4356-8 #### [facility] CLIA [id number] [address] [place] [address] HEPATIC FUNCTION PNLon 08-02 Albumin [Mass/Vol] 3.3 g/dL Low 3.9-4.9 [facility] Comment on above: Order Comment: Speci men Type: URINE SPECIMEN Performed By: #### 2 4356-8 #### [facility] CLIA [id number] [address] [place] [address] ALP [Catalytic activity/Vol] 88 U/L Normal 38-113 [facility] Comment on above: Order Comment: Speci men Type: URINE SPECIMEN Performed By: #### 2 4356-8 #### [facility] CLIA [id number] [address] [place] [address] ALT With P-5'-P [Catalytic activity/Vol] 18 U/L Normal 10-54 [facility] Comment on above: Order Comment: Speci men Type: URINE SPECIMEN Performed By: #### 2 4356-8 #### [facility] CLIA [id number] [address] [place] [address] AST With P-5'-P [Catalytic activity/Vol] 35 U/L Normal 14-40 [facility] Comment on above: Order Comment: Speci men Type: URINE SPECIMEN Performed By: #### 2 4356-8 #### [facility] CLIA [id number] [address] [place] [address] Bilirubin [Mass/Vol] 0.2 mg/dL Normal 0.2-1.3 [facility] Comment on above: Order Comment: Speci men Type: URINE SPECIMEN Performed By: #### 2 4356-8 #### [facility] CLIA [id number] [address] [place] [address] Bilirubin.conjugated [Mass/Vol] mg/dL Normal <0.2 [facility] Comment on above: Order Comment: Speci men Type: URINE SPECIMEN Performed By: #### 2 4356-8 #### [facility] CLIA [id number] [address] [place] [address] Protein [Mass/Vol] 5.4 g/dL Low 6.3-8.0 [facility] Comment on above: Order Comment: Speci men Type: URINE SPECIMEN Performed By: #### 2 4356-8 #### [facility] CLIA [id number] [address] [place] [address] PROCALCITONIN (LAB)on 2020 Procalcitonin [Mass/Vol] 0.13 ng/mL High <0.09 [facility] Comment on above: Order Comment: Speci men Type: URINE SPECIMEN Result Comment: For a guided interpretation of test results, please visit the Change in Procalcitonin Calculator, [email or web address]. Performed By: #### 2 4356-8 #### [facility] CLIA [id number] [address] [place] [address] PROGRESSon 08-02-2020 PROGRESS HNO ID: [id number] Author: Neymar Clay Service: Hospital Medicine Author [...] 02, 2020 TIME: 3:54 PM PAGER: Penny [facility] PROGRESS HNO ID: [id number] Author: Monika Virgen Service: Infectious Disease Author Type: Physician Type: Progress Notes Filed: 08/02/2020 10:31 AM Note Text: INFECTIOUS DISEASE PROGRESS NOTE Patient Name: Vleia Bagley Date: 08/02/2020 ASSESSMENT: COVID-19 infection with hypoxia [...] Imaging data: reviewed Monika Virgen MD Normal [facility] PT Pnl PPPon 08-02-2020 INR Coag (PPP) [Relative time] 1.1 {INR} Normal 0.9-1.3 [facility] Comment on above: Order Comment: Speci men Type: BLOOD SPECIMEN Result Comment: Danielle min K Antagonist (VKA) Therapeutic Range: INR 2 to 3 (Target INR of 2.5) Note: For patients treated with VKA drugs, such as warfarin, the [place] [employer] 2012 Guideline recommends [...] Chest 2012, 141:7S-47S Jimbo RA, et al. [facility] 2017, 70: 252-289 Performed By: #### 3 4528-0 #### [facility] CLIA [id number] [address] [place] [address] PT Coag (PPP) [Time] 11.1 s Normal 9.7-13.0 [facility] Comment on above: Order Comment: Speci men Type: BLOOD SPECIMEN Performed By: #### 3 4528-0 #### [facility] CLIA [id number] [address] [place] [address] ALLIED HEALTHon 08-01-2020 ALLIED HEALTH HNO ID: [id number] Author: Luis (Rt) Rosaura Puri Service: Radiology Author Type: Risk Control Field Representative Type: Allied Health Filed: 08/01/2020 9:06 PM [...] Debra(R) August 01, 2020 9:05 PM Normal [facility] Bacteria Bld Culton 08-02-19 21 Bacteria identified Cx Nom (Bld) CULTURE, BLOOD: No growth 5 days Normal [facility] Comment on above: Performed By: #### 6 00-7 ####[facility] [id number] [place] [address] Bacteria identified Cx Nom (Bld) CULTURE, BLOOD: No growth 5 days Normal [facility] Comment on above: Performed By: #### 6 00-7 ####[facility] [id number] [place] [address] Bas Metab 2000 Pnl SerPlon 0 08-01-2020 Anion gap [Moles/Vol] 13 mmol/L Normal 9-18 [facility] Comment on above: Order Comment: Speci men Type: BLOOD SPECIMEN Performed By: #### 2 4321-2 ####[facility] [id number] [place] [address] Calcium [Mass/Vol] 7.7 mg/dL Low 8.5-10.2 [facility] Comment on above: Order Comment: Speci men Type: BLOOD SPECIMEN Performed By: #### 2 4321-2 ####[facility] [id number] [place] [address] Chloride [Moles/Vol] 107 mmol/L High 97-105 [facility] Comment on above: Order Comment: Speci men Type: BLOOD SPECIMEN Performed By: #### 2 4321-2 ####[facility] [id number] [place] [address] CO2 [Moles/Vol] 15 mmol/L Low 22-30 [facility] Comment on above: Order Comment: Speci men Type: BLOOD SPECIMEN Performed By: #### 2 4321-2 ####[facility] [id number] [place] [address] Creatinine [Mass/Vol] 1.27 mg/dL High 0.73-1.22 [facility] Comment on above: Order Comment: Speci men Type: BLOOD SPECIMEN Performed By: #### 2 4321-2 ####[facility] [id number] [place] [address] GFR/1.73 sq M.predicted MDRD (S/P/Bld) [Vol rate/Area] mL/min/{1.73_m2} Normal [facility] Comment on above: Order Comment: [...] actual GFR. Performed By: #### 2 4321-2 ####[facility] [id number] [place] [address] Glucose [Mass/Vol] 88 mg/dL Normal 74-99 [facility] Comment on above: Order Comment: [employer] Type: BLOOD SPECIMEN Result Comment: The [place] [employer] (ADA) provides guidance for cutoff [...] Standards of Medical Care in Diabetes 2016, [place] [employer]. Diabetes Care. 2016.39(Suppl 1). Performed By: #### 2 4321-2 ####[facility] [id number] [place] [address] Potassium [Moles/Vol] 3.5 mmol/L Low 3.7-5.1 [facility] Comment on above: Order Comment: [employer] Type: BLOOD SPECIMEN Performed By: #### 2 4321-2 ####[facility] [id number] [place] [address] Sodium [Moles/Vol] 135 mmol/L Low 136-144 [facility] Comment on above: Order Comment: Speci men Type: BLOOD SPECIMEN Performed By: #### 2 4321-2 ####[facility] [id number] [place] [address] Urea nitrogen [Mass/Vol] 11 mg/dL Normal 9-24 [facility] Comment on above: Order Comment: Speci men Type: BLOOD SPECIMEN Performed By: #### 2 4321-2 ####[facility] [id number] [place] [address] CASE MANAGEMon 08-01-2020 CASE MANAGEM HNO ID: [id number] Author: Jd (Rn) BULL Huertas Service: Care [...] 01, 2020 TIME: 2:17 PM PAGER/CONTACT #: [phone] Normal [facility] CBC Pnl Bld Autoon Erythrocyte distribution width (RBC) [Ratio] 16.5 % High 11.5-15.0 [facility] Comment on above: Order Comment: Speci men Type: BLOOD SPECIMEN Performed By: #### 3 4528-0 #### [facility] CLIA [id number] [address] [place] [address] Hematocrit (Bld) [Volume fraction] 29.7 % Low 39.0-51.0 [facility] Comment on above: Order Comment: Speci men Type: BLOOD SPECIMEN Performed By: #### 3 4528-0 #### [facility] CLIA [id number] [address] [place] [address] Hemoglobin (Bld) [Mass/Vol] 9.4 g/dL Low 13.0-17.0 [facility] Comment on above: Order Comment: Speci men Type: BLOOD SPECIMEN Performed By: #### 3 4528-0 #### [facility] CLIA [id number] [address] [place] [address] MCH (RBC) [Entitic mass] 26.0 pg Normal 26.0-34.0 [facility] Comment on above: Order Comment: Speci men Type: BLOOD SPECIMEN Performed By: #### 3 4528-0 #### [facility] CLIA [id number] [address] [place] [address] MCHC (RBC) [Mass/Vol] 31.6 g/dL Normal 30.5-36.0 [facility] Comment on above: Order Comment: Speci men Type: BLOOD SPECIMEN Performed By: #### 3 4528-0 #### [facility] CLIA [id number] [address] [place] [address] MCV (RBC) [Entitic vol] 82.3 fL Normal 80.0-100.0 [facility] Comment on above: Order Comment: Speci men Type: BLOOD SPECIMEN Performed By: #### 3 4528-0 #### [facility] CLIA [id number] [address] [place] [address] Nucleated RBC (Bld) [#/Vol] 10*3/uL Normal <0.01 [facility] Comment on above: Order Comment: Speci men Type: BLOOD SPECIMEN Performed By: #### 3 4528-0 #### [facility] CLIA [id number] [address] [place] [address] Platelet mean volume (Bld) [Entitic vol] 10.1 fL Normal 9.0-12.7 [facility] Comment on above: Order Comment: Speci men Type: BLOOD SPECIMEN Performed By: #### 3 4528-0 #### [facility] CLIA [id number] [address] [place] [address] Platelets (Bld) [#/Vol] 118 10*3/uL Low 150-400 [facility] Comment on above: Order Comment: Speci men Type: BLOOD SPECIMEN Performed By: #### 3 4528-0 #### [facility] CLIA [id number] [address] [place] [address] RBC (Bld) [#/Vol] 3.61 10*6/uL Low 4.20-6.00 [facility] Comment on above: Order Comment: Speci men Type: BLOOD SPECIMEN Performed By: #### 3 4528-0 #### [facility] CLIA [id number] [address] [place] [address] WBC (Bld) [#/Vol] 2.15 10*3/uL Low 3.70-11.00 [facility] Comment on above: Order Comment: Speci men Type: BLOOD SPECIMEN Performed By: #### 3 4528-0 #### [facility] CLIA [id number] [address] [place] [address] CONSULTon 08-01-2020 CONSULT HNO ID: [id number] Author: Danny Navas Service: Infectious Disease Author [...] (HCC) - Severe persistent asthma Dr Sarmiento patient monitor - TIA (transient ischemic attack) 2016 2017 [...] Heart Failure Father 72 of CHF. 2 [place] before that - Parkinson?s Disease Father 68 [...] Dye [Iodine] Anaphylaxis - Penicillins Rash - [place] Oil Unknown - Propranolol Other: See Comments [...] 01, 2020 TIME: 8:21 PM PAGER/CONTACT #: [phone] Normal [facility] HEPATIC FUNCTION PNLon 08-01 Albumin [Mass/Vol] 3.3 g/dL Low 3.9-4.9 [facility] Comment on above: Order Comment: Speci men Type: BLOOD SPECIMEN Performed By: #### H FP ####[facility]IA [id number] [place] [address] ALP [Catalytic activity/Vol] 87 U/L Normal 38-113 [facility] Comment on above: Order Comment: Speci men Type: BLOOD SPECIMEN Performed By: #### H FP ####[facility] [id number] [place] [address] ALT With P-5'-P [Catalytic activity/Vol] 17 U/L Normal 10-54 [facility] Comment on above: Order Comment: Speci men Type: BLOOD SPECIMEN Performed By: #### H FP ####[facility] [id number] [place] [address] AST With P-5'-P [Catalytic activity/Vol] 35 U/L Normal 14-40 [facility] Comment on above: Order Comment: Speci men Type: BLOOD SPECIMEN Performed By: #### H FP ####[facility]IA [id number] [place] [address] Bilirubin [Mass/Vol] 0.2 mg/dL Normal 0.2-1.3 [facility] Comment on above: Order Comment: Speci men Type: BLOOD SPECIMEN Performed By: #### H FP ####[facility]ORY[facility]IA [id number] [place] [address] Bilirubin.conjugated [Mass/Vol] mg/dL Normal <0.2 [facility] Comment on above: Order Comment: Speci men Type: BLOOD SPECIMEN Performed By: #### H FP ####[facility]ORY[facility]IA [id number] [place] [address] Protein [Mass/Vol] 5.5 g/dL Low 6.3-8.0 [facility] Comment on above: Order Comment: Speci men Type: BLOOD SPECIMEN Performed By: #### H FP ####[facility]IA [id number] [place] [address] NURSING PROGon 08-01-2020 NURSING PROG HNO ID: [id number] Author: Kinza Batres) BULL Hall Service: Nursing Author Type: Registered Nurse Type: Nursing Progress Note Filed: 08/01/2020 4:19 AM Note Text: Positive sepsis advisory alert. Temp 37.7. 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 No further orders at this time. Normal [facility] NURSING PROG HNO ID: [id number] Author: Kinza Hall RN Service: Nursing Author Type: Registered Nurse Type: Nursing Progress Note Filed: 08/01/2020 2:46 AM Note Text: Order obtained to give one additional dose of tylenol po--done. Labs collected at this time. Pt drowsy but arousable no acute distress noted. Normal [facility] NURSING PROG HNO ID: [id number] Author: Kinza Hall RN Service: Nursing Author Type: Registered Nurse Type: Nursing Progress Note Filed: 08/01/2020 2:15 AM Note Text: Temp rechecked now 38.9. VS:133/79, 99, 92% ra, 20. Pt very drowsy still c/o feeling feverish, ice packs applied under both arms. Sound paged for further orders. Normal [facility] NURSING PROG HNO ID: [id number] Author: Kinza (Rn) BULL Hall Service: Nursing [...] to low 100's once in bed. Normal [facility] PROGRESSon 08-01-2020 PROGRESS HNO ID: [id number] Author: Neymar Clay Service: Hospital Medicine Author [...] 01, 2020 TIME: 4:14 PM PAGER: Normal [facility] PT Pnl PPPon 08-01-2020 INR Coag (PPP) [Relative time] 1.1 {INR} Normal 0.9-1.3 [facility] Comment on above: Order Comment: Speci men Type: BLOOD SPECIMEN Result Comment: Danielle min K Antagonist (VKA) Therapeutic Range: INR 2 to 3 (Target INR of 2.5) Note: For patients treated with VKA drugs, such as warfarin, the [place] [employer] 2012 Guideline recommends [...] [phone] Performed By: #### 3 4528-0 #### [facility] CLIA [id number] [address] [place] [address] PT Coag (PPP) [Time] 11.0 s Normal 9.7-13.0 [facility] Comment on above: Order Comment: Speci men Type: BLOOD SPECIMEN Performed By: #### 3 4528-0 #### [facility] CLIA [id number] [address] [place] [address] XR CHEST 1V FRONTALon 2020 XR CHEST [...] is enlarged. IMPRESSION: No acute radiographic abnormality. Manager Front Office: PSCB Transcribe Date/Time: Aug 01 2020 9:09P Dictated by : ANTHONY THAKUR MD This examination was interpreted and the report reviewed and electronically signed by: ANTHONY THAKUR MD on Aug 01 2020 9:11PM EST Normal [facility] Bas Metab 2000 Pnl SerPlon 0 07-31-2020 Anion gap [Moles/Vol] 11 mmol/L Normal 9-18 [facility] Comment on above: Order Comment: Speci men Type: BLOOD SPECIMEN Performed By: #### 3 4528-0 #### [facility] CLIA [id number] [address] [place] [address] Calcium [Mass/Vol] 7.7 mg/dL Low 8.5-10.2 [facility] Comment on above: Order Comment: Speci men Type: BLOOD SPECIMEN Performed By: #### 3 4528-0 #### [facility] CLIA [id number] [address] [place] [address] Chloride [Moles/Vol] 110 mmol/L High 97-105 [facility] Comment on above: Order Comment: Speci men Type: BLOOD SPECIMEN Performed By: #### 3 4528-0 #### [facility] CLIA [id number] [address] [place] [address] CO2 [Moles/Vol] 16 mmol/L Low 22-30 [facility] Comment on above: Order Comment: Speci men Type: BLOOD SPECIMEN Performed By: #### 3 4528-0 #### [facility] CLIA [id number] [address] [place] [address] Creatinine [Mass/Vol] 1.50 mg/dL High 0.73-1.22 [facility] Comment on above: Order Comment: Speci men Type: BLOOD SPECIMEN Performed By: #### 3 4528-0 #### [facility] CLIA [id number] [address] [place] [address] GFR/1.73 sq M.predicted MDRD (S/P/Bld) [Vol rate/Area] 58 mL/min/{1.73_m2} Normal [facility] Comment on above: Order Comment: [...] GFR. Performed By: #### 3 4528-0 #### [facility] CLIA [id number] [address] [place] [address] Glucose [Mass/Vol] 96 mg/dL Normal 74-99 [facility] Comment on above: Order Comment: Speci men Type: BLOOD SPECIMEN Result Comment: The [place] [employer] (ADA) provides guidance for cutoff [...] Standards of Medical Care in Diabetes 2016, [place] [employer]. Diabetes Care. 2016.39(Suppl 1). Performed By: #### 3 4528-0 #### [facility] CLIA [id number] [address] [place] [address] Potassium [Moles/Vol] 3.7 mmol/L Normal 3.7-5.1 [facility] Comment on above: Order Comment: Speci men Type: BLOOD SPECIMEN Performed By: #### 3 4528-0 #### [facility] CLIA [id number] [address] [place] [address] Sodium [Moles/Vol] 137 mmol/L Normal 136-144 [facility] Comment on above: Order Comment: Speci men Type: BLOOD SPECIMEN Performed By: #### 3 4528-0 #### [facility] CLIA [id number] [address] [place] [address] Urea nitrogen [Mass/Vol] 16 mg/dL Normal 9-24 [facility] Comment on above: Order Comment: Speci men Type: BLOOD SPECIMEN Performed By: #### 3 4528-0 #### [facility] CLIA [id number] [address] [place] [address] CBC Pnl Bld Autoon 1 Erythrocyte distribution width (RBC) [Ratio] 16.9 % High 11.5-15.0 [facility] Comment on above: Order Comment: Speci men Type: BLOOD SPECIMEN Performed By: #### 3 4528-0 #### [facility] CLIA [id number] [address] [place] [address] Hematocrit (Bld) [Volume fraction] 32.7 % Low 39.0-51.0 [facility] Comment on above: Order Comment: Speci men Type: BLOOD SPECIMEN Performed By: #### 3 4528-0 #### [facility] CLIA [id number] [address] [place] [address] Hemoglobin (Bld) [Mass/Vol] 10.3 g/dL Low 13.0-17.0 [facility] Comment on above: Order Comment: Speci men Type: BLOOD SPECIMEN Performed By: #### 3 4528-0 #### [facility] CLIA [id number] [address] [place] [address] MCH (RBC) [Entitic mass] 26.8 pg Normal 26.0-34.0 [facility] Comment on above: Order Comment: Speci men Type: BLOOD SPECIMEN Performed By: #### 3 4528-0 #### [facility] CLIA [id number] [address] [place] [address] MCHC (RBC) [Mass/Vol] 31.5 g/dL Normal 30.5-36.0 [facility] Comment on above: Order Comment: Speci men Type: BLOOD SPECIMEN Performed By: #### 3 4528-0 #### [facility] CLIA [id number] [address] [place] [address] MCV (RBC) [Entitic vol] 84.9 fL Normal 80.0-100.0 [facility] Comment on above: Order Comment: Speci men Type: BLOOD SPECIMEN Performed By: #### 3 4528-0 #### [facility] CLIA [id number] [address] [place] [address] Nucleated RBC (Bld) [#/Vol] 10*3/uL Normal <0.01 [facility] Comment on above: Order Comment: Speci men Type: BLOOD SPECIMEN Performed By: #### 3 4528-0 #### [facility] CLIA [id number] [address] [place] [address] Platelet mean volume (Bld) [Entitic vol] 9.6 fL Normal 9.0-12.7 [facility] Comment on above: Order Comment: Speci men Type: BLOOD SPECIMEN Performed By: #### 3 4528-0 #### [facility] CLIA [id number] [address] [place] [address] Platelets (Bld) [#/Vol] 127 10*3/uL Low 150-400 [facility] Comment on above: Order Comment: Speci men Type: BLOOD SPECIMEN Performed By: #### 3 4528-0 #### [facility] CLIA [id number] [address] [place] [address] RBC (Bld) [#/Vol] 3.85 10*6/uL Low 4.20-6.00 [facility] Comment on above: Order Comment: Speci men Type: BLOOD SPECIMEN Performed By: #### 3 4528-0 #### [facility] CLIA [id number] [address] [place] [address] WBC (Bld) [#/Vol] 4.18 10*3/uL Normal 3.70-11.00 [facility] Comment on above: Order Comment: Speci men Type: BLOOD SPECIMEN Performed By: #### 3 4528-0 #### [facility] CLIA [id number] [address] [place] [address] NURSING PROGon 07-31-2020 NURSING PROG HNO ID: [id number] Author: Kinza HarperRn) BULL Hall Service: Nursing [...] mdi every 6 hour prn sob. Normal [facility] PROGRESSon 07-31-2020 PROGRESS HNO ID: [id number] Author: Natali Albert MD Service: General Internal Medicine Author Type: Physician Type: Progress Notes Filed: 07/31/2020 12:17 PM Note Text: DEPARTMENT OF HOSPITAL MEDICINE PROGRESS NOTE SERVICE DATE: 07/31/2020 SERVICE TIME: 10:01 AM Hospital Medicine/Primary Attending: Natali Ablert MD NIGHT AND WEEKEND COVERAGE: After 7pm please page [phone] SUBJECTIVE: Pt seen and examined. Continues to [...] 07/30/20929 vte non-pharmacologic prophylaxis - none indicated (wa,oh) Lines, Drains, and Airways Line Peripheral 07/29/202233 Short Right Antecubital 18 Gauge 1 day VTE Prophylaxis: Lovenox 30 units daily Disposition: Home Plan of care discussed with: Patient SIGNATURE: Natali Albert MD PATIENT NAME: Velia Bagley DATE: July 31, 2020 TIME: 10:01 AM PAGER/CONTACT #: Philip palacios pager Disclaimer: Portions of this note may have been generated using [employer] voice recognition software. Reasonable efforts were made to correct any dictation errors that resulted due to the programming of this software but some may still be present. Please note, the time of this note does not reflect the time I saw this patient today, but the time of this documentation. Normal [facility] ALLIED HEALTHon 07-30-2020 ALLIED HEALTH HNO ID: [id number] Author: Rosaura Posada (Rt) Service: Radiology Author Type: Risk Control Field Representative Type: Allied Health Filed: 07/29/2020 10:56 PM [...] Swetha July 29, 2020 10:56 PM Normal [facility] Bacteria Bld Culton 07-31-19 21 Bacteria identified Cx Nom (Bld) CULTURE, BLOOD: No growth 5 days Normal [facility] Comment on above: Performed By: #### 6 -7 ####[facility] [id number] [place] [address] Bacteria identified Cx Nom (Bld) CULTURE, BLOOD: No growth 5 days Normal [facility] Comment on above: Performed By: #### 6 00-7 ####[facility] [id number] [place] [address] Bas Metab 2000 Pnl SerPlon 0 3-29-2021 Anion gap [Moles/Vol] 10 mmol/L Normal 9-18 [facility] Comment on above: Order Comment: Speci men Type: BLOOD SPECIMEN Performed By: #### 2 4320-06, 1987-09 ####[facility]ORY[facility]IA [id number] [place] [address] Calcium [Mass/Vol] 7.8 mg/dL Low 8.5-10.2 [facility] [facility] Comment on above: Order Comment: Speci men Type: BLOOD SPECIMEN Performed By: #### 2 4320-06, 1987-09 ####[facility]ATORYCLIA [id number] [place] [address] Chloride [Moles/Vol] 111 mmol/L High 97-105 [facility] Comment on above: Order Comment: Speci men Type: BLOOD SPECIMEN Performed By: #### 2 4320-06, 1987-09 ####[facility]ATORYCLIA [id number] [place] [address] CO2 [Moles/Vol] 16 mmol/L Low 22-30 [facility] Comment on above: Order Comment: Speci men Type: BLOOD SPECIMEN Performed By: #### 2 4320-06, 1987-09 ####[facility]ATORYCLIA [id number] [place] [address] Creatinine [Mass/Vol] 1.73 mg/dL High 0.73-1.22 [facility] Comment on above: Order Comment: Speci men Type: BLOOD SPECIMEN Performed By: #### 2 4320-06, 1987-09 ####[facility]ATORYCLIA [id number] [place] [address] GFR/1.73 sq M.predicted MDRD (S/P/Bld) [Vol rate/Area] 49 mL/min/{1.73_m2} Normal [facility] Comment on above: Order Comment: Speci men Type: BLOOD SPECIMEN Result Comment: 41 eGFR (Estimated GFR) Units of measure: mL/min/1.73 meters squared eGFR is derived from the reexpressed MDRD Study equation using the following parameters: serum creatinine, age, gender and race. The creatinine assay has been calibrated to be traceable to IDUT. An eGFR <60 mL/min/1.73m2 for >3 months is consistent with chronic kidney disease. Refer to KDOQI guidelines for clinical interpretation. In patients with unstable renal function, e.g. those with acute kidney injury, the eGFR may not accurately reflect actual GFR. Performed By: #### 2 4320-06, 1987-09 ####[facility]ATORYCLIA [id number] [place] [address] Glucose [Mass/Vol] 102 mg/dL High 74-99 [facility] Comment on above: Order Comment: Speci men Type: BLOOD SPECIMEN Result Comment: The [place] Diabetes Association (ADA) provides guidance for cutoff [...] Standards of Medical Care in Diabetes 2016, [place] [employer]. Diabetes Care. 2016.39(Suppl 1). Performed By: #### 2 1987-09 ####[facility]ATORYCLIA [id number] [place] [address] Potassium [Moles/Vol] 3.9 mmol/L Normal 3.7-5.1 [facility] Comment on above: Order Comment: Speci men Type: BLOOD SPECIMEN Performed By: #### 2 4320-06, 1987-09 ####[facility]ATORYCLIA [id number] [place] [address] Sodium [Moles/Vol] 137 mmol/L Normal 136-144 [facility] Comment on above: Order Comment: Speci men Type: BLOOD SPECIMEN Performed By: #### 2 4320-06, 1987-09 ####[facility]ATORYCLIA [id number] [place] [address] Urea nitrogen [Mass/Vol] 19 mg/dL Normal 9-24 [facility] Comment on above: Order Comment: Speci men Type: BLOOD SPECIMEN Performed By: #### 2 4321-2, 1987-09 ####[facility] [id number] [place] [address] Anion gap [Moles/Vol] 14 mmol/L Normal 9-18 [facility] Comment on above: Order Comment: Speci men Type: BLOOD SPECIMEN Performed By: #### 2 4321-2 #### [facility] CLIA [id number] [address] [place] [address] Calcium [Mass/Vol] 8.3 mg/dL Low 8.5-10.2 [facility] Comment on above: Order Comment: Speci men Type: BLOOD SPECIMEN Performed By: #### 2 4321-2 #### [facility] CLIA [id number] [address] [place] [address] Chloride [Moles/Vol] 106 mmol/L High 97-105 [facility] Comment on above: Order Comment: Speci men Type: BLOOD SPECIMEN Performed By: #### 2 4321-2 #### [facility] CLIA [id number] [address] [place] [address] CO2 [Moles/Vol] 16 mmol/L Low 22-30 [facility] Comment on above: Order Comment: Speci men Type: BLOOD SPECIMEN Performed By: #### 2 4321-2 #### [facility] CLIA [id number] [address] [place] [address] Creatinine [Mass/Vol] 1.79 mg/dL High 0.73-1.22 [facility] Comment on above: Order Comment: Speci men Type: BLOOD SPECIMEN Performed By: #### 2 4321-2 #### [facility] CLIA [id number] [address] [place] [address] GFR/1.73 sq M.predicted MDRD (S/P/Bld) [Vol rate/Area] 47 mL/min/{1.73_m2} Normal [facility] Comment on above: Order Comment: [facility] Type: BLOOD SPECIMEN Result Comment: 39 eGFR [...] GFR. Performed By: #### 2 4321-2 #### [facility] CLIA [id number] [address] [place] [address] Glucose [Mass/Vol] 169 mg/dL High 74-99 [facility] Comment on above: Order Comment: [facility] Type: BLOOD SPECIMEN Result Comment: The [place] Diabetes Association (ADA) provides guidance for cutoff [...] Standards of Medical Care in Diabetes 2016, [place] [employer]. Diabetes Care. 2016.39(Suppl 1). Performed By: #### 2 4321-2 #### [facility] CLIA [id number] [address] [place] [address] Potassium [Moles/Vol] 3.5 mmol/L Low 3.7-5.1 [facility] Comment on above: Order Comment: [facility] Type: BLOOD SPECIMEN Performed By: #### 2 4321-2 #### [facility] CLIA [id number] [address] [place] [address] Sodium [Moles/Vol] 136 mmol/L Normal 136-144 [facility] Comment on above: Order Comment: Speci men Type: BLOOD SPECIMEN Performed By: #### 2 4321-2 #### [facility] CLIA [id number] [address] [place] [address] Urea nitrogen [Mass/Vol] 18 mg/dL Normal 9-24 [facility] Comment on above: Order Comment: Speci men Type: BLOOD SPECIMEN Performed By: #### 2 4321-2 #### [facility] CLIA [id number] [address] [place] [address] CASE MANAGEMon 07-30-2020 CASE MANAGEM HNO ID: [id number] Author: MARIAN Phillips (Lisw) Service: Social Work Author Type: Brass Pickler Type: Care Mgt Progress Note Filed: 07/30/2020 [...] 30, 2020 TIME: 3:03 PM PAGER/CONTACT #: [phone] [facility] CASE MGT INIT PRASANNAESon 2020 CASE MGT INIT ASSJUVENTINO HNO ID: [id number] Author: MARIAN Phillips (Lisw) Service: Social Work Author Type: Brass Pickler Type: Care Mgt Initial Assessment Filed: 07/30/2020 3:32 PM Note Text: CARE MANAGEMENT: ASSESSMENT AND DISCHARGE PLAN SERVICE DATE: July 30, 2020 SERVICE TIME: 3:29 PM PRIMARY CARE PHYSICIAN: Rachel Rayo MD ADMISSION STATUS: Inpatient Needs Prior to Discharge: Patient/Family;OT/PT Evaluation [facility]ICAL: [facility] Patient/Well Puller Head Stated Goals: To have reduction in symptoms Health Insurance: [employer] Health Issues Impacting Discharge Plan: Newly diagnosed Newly Diagnosed: + covid, KRISTA Last Discharge Date: 01/27/20 Is this Within the Past 30 days? Last discharge within 30 days: No Advance Directive: Current Advance Directive: Health Care Power of Rn Neurology In Chart: No Nurse Instructor Attempted to Assist with AD Completion: No Unable to Assist Due To:: (Daughter Toya is his DPOAHC. Documents in [place]) Health LiteracyHow often do you need to [...] Cane;Walker Has the Patient Been in a [facility] Facility in the Past 30 days?: No SOCIAL: Living Arrangements: Home Lives With: Son Financial Resources: Disabled Primary Contact: Extended Emergency Contact Information Primary Emergency Contact: Teri Bagley Relation: Daughter Secondary Emergency Contact: YudiAdams Kobojo Relation: Son Supportive Patient Contact:: Yes Contact [...] Completely I feel financially burdened by my [id number]-ubrekn expenses for my prescription medication:: 0 - Disagree Completely Risk Score: 0 Patient is categorized as: Low risk < 2 Are you interested in bedside delivery of your medications? Yes Is Patient Psychosocially Complex?: No ASSESSMENT AND PLAN: Medical Needs: Medical Needs: Two or more chronic diseases Psychosocial Needs: Psychosocial Needs: None FREEDOM OF CHOICE EXPLAINED: [place] of Choice Given: No Reason Not Given: No placements necessary POTENTIAL TRANSITION PLANS Home Called patient due to isolation. Patient was here visiting daughter who is in ICU. Patient lives in [facility] when he got sick. + cane and walker. Patient is on Disability. No services in place. If he gets scripts he would like them filled here before returning to [place]. + PCP,=script. Son will transport him home when medically ready. On room air now. SIGNATURE: MARIAN Phillips PATIENT NAME: Velia Bagley DATE: July 30, 2020 TIME: 3:29 PM PAGER/CONTACT #: [phone] Normal [facility] CBC Pnl Bld Autoon Erythrocyte distribution width (RBC) [Ratio] 16.8 % High 11.5-15.0 [facility] Comment on above: Order Comment: Speci men Type: BLOOD SPECIMEN Performed By: #### 3 4528-0 #### [facility] CLIA [id number] [address] [place] [address] Hematocrit (Bld) [Volume fraction] 36.9 % Low 39.0-51.0 [facility] Comment on above: Order Comment: Speci men Type: BLOOD SPECIMEN Performed By: #### 3 4528-0 #### [facility] CLIA [id number] [address] [place] [address] Hemoglobin (Bld) [Mass/Vol] 11.3 g/dL Low 13.0-17.0 [facility] Comment on above: Order Comment: Speci men Type: BLOOD SPECIMEN Performed By: #### 3 4528-0 #### [facility] CLIA [id number] [address] [place] [address] MCH (RBC) [Entitic mass] 26.6 pg Normal 26.0-34.0 [facility] Comment on above: Order Comment: Speci men Type: BLOOD SPECIMEN Performed By: #### 3 4528-0 #### [facility] CLIA [id number] [address] [place] [address] MCHC (RBC) [Mass/Vol] 30.6 g/dL Normal 30.5-36.0 [facility] Comment on above: Order Comment: Speci men Type: BLOOD SPECIMEN Performed By: #### 3 4528-0 #### [facility] CLIA [id number] [address] [place] [address] MCV (RBC) [Entitic vol] 86.8 fL Normal 80.0-100.0 [facility] Comment on above: Order Comment: Speci men Type: BLOOD SPECIMEN Performed By: #### 3 4528-0 #### [facility] CLIA [id number] [address] [place] [address] Nucleated RBC (Bld) [#/Vol] 10*3/uL Normal <0.01 [facility] Comment on above: Order Comment: Speci men Type: BLOOD SPECIMEN Performed By: #### 3 4528-0 #### [facility] CLIA [id number] [address] [place] [address] Platelet mean volume (Bld) [Entitic vol] 9.5 fL Normal 9.0-12.7 [facility] Comment on above: Order Comment: Speci men Type: BLOOD SPECIMEN Performed By: #### 3 4528-0 #### [facility] CLIA [id number] [address] [place] [address] Platelets (Bld) [#/Vol] 124 10*3/uL Low 150-400 [facility] Comment on above: Order Comment: Speci men Type: BLOOD SPECIMEN Performed By: #### 3 4528-0 #### [facility] CLIA [id number] [address] [place] [address] RBC (Bld) [#/Vol] 4.25 10*6/uL Normal 4.20-6.00 [facility] Comment on above: Order Comment: Speci men Type: BLOOD SPECIMEN Performed By: #### 3 4528-0 #### [facility] CLIA [id number] [address] [place] [address] WBC (Bld) [#/Vol] 5.52 10*3/uL Normal 3.70-11.00 [facility] Comment on above: Order Comment: Speci men Type: BLOOD SPECIMEN Performed By: #### 3 4528-0 #### [facility] CLIA [id number] [address] [place] [address] CBC W Auto Diff B[place] 2020 Basophils (Bld) [#/Vol] 10*3/uL Normal <0.11 [facility] Comment on above: Order Comment: Speci men Type: BLOOD SPECIMEN Performed By: #### 5 7021-8 #### [facility] CLIA [id number] [address] [place] [address] Basophils/100 WBC (Bld) 0.2 % Normal [facility] Comment on above: Order Comment: Speci men Type: BLOOD SPECIMEN Performed By: #### 5 7021-8 #### [facility] CLIA [id number] [address] [place] [address] Differential cell count method Nom (Bld) Auto Normal [facility] Comment on above: Order Comment: Speci men Type: BLOOD SPECIMEN Performed By: #### 5 7021-8 #### [facility] CLIA [id number] [address] [place] [address] Eosinophils (Bld) [#/Vol] 10*3/uL Normal <0.46 [facility] Comment on above: Order Comment: Speci men Type: BLOOD SPECIMEN Performed By: #### 5 7021-8 #### [facility] CLIA [id number] [address] [place] [address] Eosinophils/100 WBC (Bld) 0.0 % Normal [facility] Comment on above: Order Comment: Speci men Type: BLOOD SPECIMEN Performed By: #### 5 7021-8 #### [facility] CLIA [id number] [address] [place] [address] Erythrocyte distribution width (RBC) [Ratio] 16.5 % High 11.5-15.0 [facility] Comment on above: Order Comment: Speci men Type: BLOOD SPECIMEN Performed By: #### 5 7021-8 #### [facility] CLIA [id number] [address] [place] [address] Hematocrit (Bld) [Volume fraction] 39.4 % Normal 39.0-51.0 [facility] Comment on above: Order Comment: Speci men Type: BLOOD SPECIMEN Performed By: #### 5 7021-8 #### [facility] CLIA [id number] [address] [place] [address] Hemoglobin (Bld) [Mass/Vol] 12.1 g/dL Low 13.0-17.0 [facility] Comment on above: Order Comment: Speci men Type: BLOOD SPECIMEN Performed By: #### 5 7021-8 #### [facility] CLIA [id number] [address] [place] [address] IMMATURE GRAN % 0.5 % Normal [facility] Comment on above: Order Comment: Speci men Type: BLOOD SPECIMEN Performed By: #### 5 7021-8 #### [facility] CLIA [id number] [address] [place] [address] IMMATURE GRAN ABS 0.03 k/uL Normal <0.10 [facility] Comment on above: Order Comment: Speci men Type: BLOOD SPECIMEN Performed By: #### 5 7021-8 #### [facility] CLIA [id number] [address] [place] [address] Lymphocytes (Bld) [#/Vol] 1.27 10*3/uL Normal 1.00-4.00 [facility] Comment on above: Order Comment: Speci men Type: BLOOD SPECIMEN Performed By: #### 5 7021-8 #### [facility] CLIA [id number] [address] [place] [address] Lymphocytes/100 WBC (Bld) 20.3 % Normal [facility] Comment on above: Order Comment: Speci men Type: BLOOD SPECIMEN Performed By: #### 5 7021-8 #### [facility] CLIA [id number] [address] [place] [address] MCH (RBC) [Entitic mass] 26.9 pg Normal 26.0-34.0 [facility] Comment on above: Order Comment: Speci men Type: BLOOD SPECIMEN Performed By: #### 5 7021-8 #### [facility] CLIA [id number] [address] [place] [address] MCHC (RBC) [Mass/Vol] 30.7 g/dL Normal 30.5-36.0 [facility] Comment on above: Order Comment: Speci men Type: BLOOD SPECIMEN Performed By: #### 5 7021-8 #### [facility] CLIA [id number] [address] [place] [address] MCV (RBC) [Entitic vol] 87.8 fL Normal 80.0-100.0 [facility] Comment on above: Order Comment: Speci men Type: BLOOD SPECIMEN Performed By: #### 5 7021-8 #### [facility] CLIA [id number] [address] [place] [address] Monocytes (Bld) [#/Vol] 0.39 10*3/uL Normal <0.87 [facility] Comment on above: Order Comment: Speci men Type: BLOOD SPECIMEN Performed By: #### 5 7021-8 #### [facility] CLIA [id number] [address] [place] [address] Monocytes/100 WBC (Bld) 6.2 % Normal [facility] Comment on above: Order Comment: Speci men Type: BLOOD SPECIMEN Performed By: #### 5 7021-8 #### [facility] CLIA [id number] [address] [place] [address] Neutrophils (Bld) [#/Vol] 4.55 10*3/uL Normal 1.45-7.50 [facility] Comment on above: Order Comment: Speci men Type: BLOOD SPECIMEN Performed By: #### 5 7021-8 #### [facility] CLIA [id number] [address] [place] [address] Neutrophils/100 WBC (Bld) 72.8 % Normal [facility] Comment on above: Order Comment: Speci men Type: BLOOD SPECIMEN Performed By: #### 5 7021-8 #### [facility] CLIA [id number] [address] [place] [address] Nucleated RBC (Bld) [#/Vol] 10*3/uL Normal <0.01 [facility] Comment on above: Order Comment: Speci men Type: BLOOD SPECIMEN Performed By: #### 5 7021-8 #### [facility] CLIA [id number] [address] [place] [address] Nucleated RBC/100 WBC (Bld) [Ratio] 0.0 /100 WBC Normal 0.0 [facility] Comment on above: Order Comment: Speci men Type: BLOOD SPECIMEN Performed By: #### 5 7021-8 #### [facility] CLIA [id number] [address] [place] [address] Platelet mean volume (Bld) [Entitic vol] 9.7 fL Normal 9.0-12.7 [facility] Comment on above: Order Comment: Speci men Type: BLOOD SPECIMEN Performed By: #### 5 7021-8 #### [facility] CLIA [id number] [address] [place] [address] Platelets (Bld) [#/Vol] 162 10*3/uL Normal 150-400 [facility] Comment on above: Order Comment: Speci men Type: BLOOD SPECIMEN Performed By: #### 5 7021-8 #### [facility] CLIA [id number] [address] [place] [address] RBC (Bld) [#/Vol] 4.49 10*6/uL Normal 4.20-6.00 [facility] Comment on above: Order Comment: Speci men Type: BLOOD SPECIMEN Performed By: #### 5 7021-8 #### [facility] CLIA [id number] [address] [place] [address] WBC (Bld) [#/Vol] 6.25 10*3/uL Normal 3.70-11.00 [facility] Comment on above: Order Comment: Speci men Type: BLOOD SPECIMEN Performed By: #### 5 7021-8 #### [facility] CLIA [id number] [address] [place] [address] [facility] CRP [Mass/Vol] 4.6 mg/dL High <0.9 [facility] Comment on above: Order Comment: Speci men Type: BLOOD SPECIMEN Performed By: #### 2 4321-2, 1987- ####[facility]ORY[facility]IA [id number] [place] [address] D dimer FEU PPP-mCncon 07-30 D DIMER AGE-RELATED CUTOFF 590 ng/mL FEU Normal [facility] Comment on above: Order Comment: Speci men Type: URINE SPECIMEN Performed By: #### 2 4356-8 #### [facility] CLIA [id number] [address] [place] [address] Fibrin D-dimer FEU (PPP) [Mass/Vol] 330 ng/mL FEU Normal <500 [facility] Comment on above: Order Comment: Speci men Type: URINE SPECIMEN Performed By: #### 2 4356-8 #### [facility] CLIA [id number] [address] [place] [address] ED PROV NOTEon 07-30-2020 ED PROV NOTE HNO ID: [id number] Author: Kenny Presley DO Service: Emergency Medicine [...] IV fluids. He will be admitted to [facility] for further management. Kenny Presley DO 07/30/20 0322 Normal [facility] ED PROV NOTE HNO ID: [id number] Author: Venkata Greenberg DO Service: Emergency Medicine [...] Osteoarthritis - Severe persistent asthma Dr Sarmiento patient monitor - TIA (transient ischemic attack) 2017 2018 [...] Heart Failure Father 72 of CHF. 2 [place] before that - Parkinson?s Disease Father 68 [...] Dye [Iodine] Anaphylaxis - Penicillins Rash - [place] Oil Unknown - Propranolol Other: See Comments [...] kidney injury) (HCC) COVID-19 test performed per [facility] [place] policy for suspected COVID community exposure. MDM [...] sillhouete. Patient signed out to Dr. Markham. [facility] SIGNATURE: DO Venkata Teixeira (DO Lamont Ba 07/30/20 0004 Jacki Yuong MD 07/30/20 1437 Normal [facility] ED PROV NOTE HNO ID: [id number] Author: Jacki Young MD Service: Emergency Medicine [...] PM Jacki Young MD 07/29/20 2339 Normal [facility] ED Triage Noteon 07-30-2020 ED Triage Note HNO ID: [id number] Author: JEREMY Mccormack Pa-C Service: Emergency Medicine Author Type: Physician Small Animal Veterinarian Type: ED Triage Notes Filed: 07/29/2020 10:32 [...] direct rooming SIGNATURE: Betty Mayen PA-C Normal [facility] HIGH SENSITIVITY TROPONIN To n 07-30-2020 HIGH SENSITIVITY DANIELLE 24 ng/L High <12 [facility] Comment on above: Order Comment: Speci [...] MACE. Performed By: #### 2 4356-8 #### [facility] CLIA [id number] [address] [place] [address] HIGH SENSITIVITY DANIELLE 29 ng/L High <12 [facility] Comment on above: Order Comment: Speci [...] MACE. Performed By: #### H STNT #### [facility] CLIA [id number] [address] [place] [address] HIGH SENSITIVITY DANIELLE 31 ng/L High <12 [facility] Comment on above: Order Comment: Speci [...] MACE. Performed By: #### 2 4356-8 #### [facility] CLIA [id number] [address] [place] [address] HISTORY PHYSICALon HISTORY PHYSICAL HNO ID: [id number] Author: Natali Albert MD Service: General Internal Medicine Author Type: Physician Type: HANDP Filed: 07/30/2020 9:23 AM Note Text: DEPARTMENT OF HOSPITAL MEDICINE HISTORY AND PHYSICAL EXAM SERVICE DATE: 07/30/2020 SERVICE TIME: 9:08 AM Primary Care Physician: Rachel Rayo MD NIGHT AND WEEKEND COVERAGE: After 7pm, please call cross cover pager #[phone] Subjective CHIEF COMPLAINT: Cough and shortness of [...] (HCC) - Severe persistent asthma Dr Sarmiento patient monitor - TIA (transient ischemic attack) 2017 2017 [...] Heart Failure Father 72 of CHF. 2 [place] before that - Parkinson?s Disease Father 68 [...] Dye [Iodine] Anaphylaxis - Penicillins Rash - [place] Oil Unknown - Propranolol Other: See Comments [...] this note may have been generated using [employer] voice recognition software. Reasonable efforts were made to correct any dictation errors that resulted due to the programming of this software but some may still be present. Normal [facility] HISTORY PHYSICAL HNO ID: [id number] Author: Rich (Betty) Luis Service: Hospital Medicine Author Type: Resident Type: HANDP Filed: 07/30/2020 4:26 AM Note Text: -------- Attestation signed by Saw Ashton at 07/30/2020 4:37 AM (Updated) [facility] STAFF PHYSICIAN NOTE OF PERSONAL INVOLVEMENT IN [...] Team. SIGNATURE: Saw Ashton MD [facility] PAGER:[phone] DATE of SERVICE: July 30, 2020 TIME [...] - Acute DVT of left tibial vein ([facility]) prior to 2016 low dose ASA - Carpal tunnel syndrome, bilateral - Closed displaced fracture of right femoral neck ([facility]) - COPD (chronic obstructive pulmonary disease) ([facility]) - Essential tremor - GERD (gastroesophageal reflux disease) - History of lumbar laminectomy - HTN (hypertension) - Lumbar spinal stenosis - Migraines constant - Neurogenic bladder - Oropharyngeal dysphagia - ANN (obstructive sleep apnea) - Osteoarthritis - Recurrent aspiration pneumonia (HCC) - Severe persistent asthma Dr Sarmiento patient monitor - TIA (transient ischemic attack) 2016 2017 [...] Heart Failure Father 72 of CHF. 2 [place] before that - Parkinson?s Disease Father 68 [...] Dye [Iodine] Anaphylaxis - Penicillins Rash - [place] [employer] Unknown - Propranolol Other: See Comments [...] 2000 ml Output ? Net 2000 ml CHILD PROTECTIVE SERVICES SPECIALIST: Alert and oriented Awake, oriented RASS: 0 [...] TIME: 2:00 AM PAGER/CONTACT #: [phone] Normal [facility] NURSING PROGon 07-30-2020 NURSING PROG HNO ID: [id number] Author: Yuko (Rn) BULL Marques Service: ? Author Type: Registered Nurse Type: Nursing Progress Note Filed: 07/30/2020 9:48 AM Note Text: Ambulatory pulse ox 0940: pt ambulated back and forth in room three times. Patient oxygen saturation started at 93% resting and increased to 99% after ambulation on RA. Normal [facility] PROGRESSon 07-30-2020 PROGRESS HNO ID: [id number] Author: Kenny Presley DO Service: Emergency Medicine [...] Patient stable for floor at this timed. [facility] called and patient admitted to regular nursing floor. Silas Markham MD Normal [facility] PT Pnl PPPon 07-30-2020 INR Coag (PPP) [Relative time] 1.1 {INR} Normal 0.9-1.3 [facility] Comment on above: Order Comment: Speci men Type: URINE SPECIMEN Result Comment: Danielle min K Antagonist (VKA) Therapeutic Range: INR 2 to 3 (Target INR of 2.5) Note: For patients treated with VKA drugs, such as warfarin, the [place] [employer] 2012 Guideline recommends [...] Chest 2012, 141:7S-47S Jimbo RA, et al. [facility] 2017, 70: 252-289 Performed By: #### 2 4356-8 #### [facility] CLIA [id number] [address] [place] [address] PT Coag (PPP) [Time] 10.9 s Normal 9.7-13.0 [facility] Comment on above: Order Comment: Speci men Type: URINE SPECIMEN Performed By: #### 2 4356-8 #### [facility] CLIA [id number] [address] [place] [address] SARS-CoV-2 RNA Resp Ql EMMY+p robeon 07-30-2020 SARS-CoV-2 RNA Resp Ql EMMY+probe COVID 19 RESULT: SARS-CoV-2 (Agent of COVID-19) Detected by PCR. This test has been authorized by FDA under an Emergency Use Authorization (EUA) Normal [facility] Comment on above: Performed By: #### 9 4500-6 ####[facility] [id number] [place] [address] US KIDNEY/BLADDERon 07-31-19 21 US KIDNEY/BLADDER Final Report DATE OF EXAM: Jul 30 2020 3:05PM [facility] 105 - US KIDNEY/BLADDER / PROCEDURE REASON: [...] each kidney, likely related to parenchymal scarring. Manager Front Office: PSCB Transcribe Date/Time: Jul 30 2020 9:47P Dictated by : RONI MARVIN MD This examination was interpreted and the report reviewed and electronically signed by: RONI MARVIN MD on Jul 30 2020 9:50PM EST Normal [facility] Urinalysis complete pnl Uron 07-30-2020 Bacteria LM.HPF (Urine sed) [#/Area] None Seen Normal None Seen [facility] Comment on above: Order Comment: Speci men Type: URINE SPECIMEN Performed By: #### 2 4356-8 #### [facility] CLIA [id number] [address] [place] [address] Bilirubin Ql (U) Negative Normal Negative [facility] Comment on above: Order Comment: Speci men Type: URINE SPECIMEN Performed By: #### 2 4356-8 #### [facility] CLIA [id number] [address] [place] [address] Clarity (Unsp spec) Clear Normal Clear [facility] Comment on above: Order Comment: Speci men Type: URINE SPECIMEN Performed By: #### 2 4356-8 #### [facility] CLIA [id number] [address] [place] [address] Color (U) Yellow Normal Yellow [facility] Comment on above: Order Comment: Speci men Type: URINE SPECIMEN Performed By: #### 2 4356-8 #### [facility] CLIA [id number] [address] [place] [address] Epithelial cells LM.HPF (Urine sed) [#/Area] 1.7 /[HPF] Normal [facility] Comment on above: Order Comment: Speci men Type: URINE SPECIMEN Performed By: #### 2 4356-8 #### [facility] CLIA [id number] [address] [place] [address] Glucose Test strip (U) [Mass/Vol] Negative Normal Negative [facility] Comment on above: Order Comment: Speci men Type: URINE SPECIMEN Performed By: #### 2 4356-8 #### [facility] CLIA [id number] [address] [place] [address] Hemoglobin Ql (U) Negative Normal Negative [facility] Comment on above: Order Comment: Speci men Type: URINE SPECIMEN Performed By: #### 2 4356-8 #### [facility] CLIA [id number] [address] [place] [address] Hyaline casts (Urine sed) [#/Area] 1-3 /LPF Abnormal 0 /LPF [facility] Comment on above: Order Comment: Speci men Type: URINE SPECIMEN Performed By: #### 2 4356-8 #### [facility] CLIA [id number] [address] [place] [address] Ketones Ql (U) Negative Normal Negative [facility] Comment on above: Order Comment: Speci men Type: URINE SPECIMEN Performed By: #### 2 4356-8 #### [facility] CLIA [id number] [address] [place] [address] Leukocyte esterase Test strip Ql (U) Negative Normal Negative [facility] Comment on above: Order Comment: Speci men Type: URINE SPECIMEN Performed By: #### 2 4356-8 #### [facility] CLIA [id number] [address] [place] [address] Nitrite Ql (U) Negative Normal Negative [facility] Comment on above: Order Comment: Speci men Type: URINE SPECIMEN Performed By: #### 2 4356-8 #### [facility] CLIA [id number] [address] [place] [address] pH (U) 5.5 [pH] Normal 5.0-8.0 [facility] Comment on above: Order Comment: Speci men Type: URINE SPECIMEN Performed By: #### 2 4356-8 #### [facility] CLIA [id number] [address] [place] [address] Protein (U) [Mass/Vol] Negative Normal Negative [facility] Comment on above: Order Comment: Speci men Type: URINE SPECIMEN Performed By: #### 2 4356-8 #### [facility] CLIA [id number] [address] [place] [address] RBC LM.HPF (Urine sed) [#/Area] 0-3 /HPF Normal 0-3 /HPF [facility] Comment on above: Order Comment: Speci men Type: URINE SPECIMEN Performed By: #### 2 4356-8 #### [facility] CLIA [id number] [address] [place] [address] Specific gravity (U) [Rel density] 1.006 Normal 1.005-1.030 [facility] Comment on above: Order Comment: Speci men Type: URINE SPECIMEN Performed By: #### 2 4356-8 #### [facility] CLIA [id number] [address] [place] [address] Urobilinogen Test strip Ql (U) 1.0 EU/dL Normal 0.2-1.0 EU/dL [facility] Comment on above: Order Comment: Speci men Type: URINE SPECIMEN Performed By: #### 2 4356-8 #### [facility] CLIA [id number] [address] [place] [address] WBC LM.HPF (Urine sed) [#/Area] 0-5 /HPF Normal 0-5 /HPF [facility] Comment on above: Order Comment: Speci men Type: URINE SPECIMEN Performed By: #### 2 4356-8 #### [facility] CLIA [id number] 1 [place] [id number] XR CHEST 1V FRONTALon 2020 XR CHEST [...] abnormalities. IMPRESSION: Stable mild cardiac silhouette enlargement. Manager Front Office: PSCB Transcribe Date/Time: Jul 29 2020 11:28P Dictated by : MANUELA BOJORQUEZ MD This examination was interpreted and the report reviewed and electronically signed by: MANUELA BOJORQUEZ MD on Jul 29 2020 11:29PM EST Normal [facility] CNOVon 04-17-2020 CNOV Office Visit (AGPOB1 ) -------- VELIA BAGLEY ([id number]) 1960 M Date Time Provider Department 04/17/20 1:15 PM HIRAL CASTANEDA During your visit today, we recorded the following information about you: Respiration Weight Height 20/minute 89.8 kg 1.778 m Hiral Castaneda MD 04/17/2020 1:28 PM Signed [facility] CC: Follow-up visit after total hip [...] Osteoarthritis - Severe persistent asthma Dr Sarmiento patient monitor - TIA (transient ischemic attack) 2017 2017 [...] Dye [Iodine] Anaphylaxis - Penicillins Rash - [place] Oil Unknown - Propranolol Other: See Comments Severe low bp and kidneys shutting down. - Sulfa (Sulfonamide * Rash, Itching - Valium [Diazepam] Other: See Comments Depression FAMILY HISTORY Problem Relation Age of Onset - Emphysema Mother - Blood Clots Mother required IVC filter. Multiple blood clots before (3-4). - Hypertension Mother - Heart Failure Father 72 of CHF. 2 [place] before that - Parkinson?s Disease Father 68 [...] replacement, 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] Order(s):XR PELVIS 1V AP [[id number]] Order #: [id number] Prescriptions as of 04/17/2020 Sig: FLUCONAZOLE 100 [...] Cervicalgia [M54.2] 04/14/2013 Myalgia and myositis, unspecified [[id number]] 04/14/2013 Iron deficiency anemia [D50.9] 06/10/2016 Weakness [...] and Disposition History Recorded Encounter Status:Closed by HIARL CASTANEDA MD on 04/17/20 [facility] PROGRESSon 04-17-2020 PROGRESS HNO ID: [id number] Author: Hiral Castaneda Service: ? Author Type: Physician Type: Progress Notes Filed: 04/17/2020 1:28 PM Note Text: [facility] CC: Follow-up visit after total hip [...] Osteoarthritis - Severe persistent asthma Dr Sarmiento patient monitor - TIA (transient ischemic attack) 2017 2017 [...] Dye [Iodine] Anaphylaxis - Penicillins Rash - [place] Oil Unknown - Propranolol Other: See Comments Severe low bp and kidneys shutting down. - Sulfa (Sulfonamide * Rash, Itching - Valium [Diazepam] Other: See Comments Depression FAMILY HISTORY Problem Relation Age of Onset - Emphysema Mother - Blood Clots Mother required IVC filter. Multiple blood clots before (3-4). - Hypertension Mother - Heart Failure Father 72 of CHF. 2 [place] before that - Parkinson?s Disease Father 68 [...] to call the office. Hiral Castaneda MD [facility] 02-28-2020 [facility] Office Visit (AGPOB1 ) -------- VELIA BAGLEY Skip ([id number]) 1960 M Date Time Provider Department 02/28/20 [...] replacement, 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] Order(s):XR PELVIS 1V AP [[id number]] Order #: [id number] Prescriptions as of 02/28/2020 Sig: FLUCONAZOLE 100 [...] Cervicalgia [M54.2] 04/14/2013 Myalgia and myositis, unspecified [[id number]] 04/14/2013 Iron deficiency anemia [D50.9] 06/10/2016 Weakness [...] by HIRAL CASTANEDA MD on 02/29/20 [facility] PROGRESSon 02-28-2020 PROGRESS HNO ID: [id number] Author: Hiral Castaneda Service: ? Author Type: [...] Type 2 HEMATOLOGY: Clots LLE DVT Normal [facility] PROGRESS HNO ID: [id number] Author: Hiral Castaneda Service: ? Author Type: [...] Type 2 HEMATOLOGY: Clots LLE DVT Normal [facility] CNPNon 02-02-2020 CNPN Telephone (AK52B) -------- VELIA BAGLEY ([id number]) 1960 M Date Time Provider Department 02/02/20 [...] Cervicalgia [M54.2] 04/14/2013 Myalgia and myositis, unspecified [[id number]] 04/14/2013 Iron deficiency anemia [D50.9] 06/10/2016 Weakness [R53.1] 06/24/2016 Lymphadenopathy [R59.1] 02/11/2018 More... Closed displaced fracture of right femoral neck*10/16/2019 Status post total hip replacement, right [Z96.6*01/16/2020 01/20/2020 Sepsis (HCC) [A41.9] 01/24/2020 01/27/2020 TIA (transient ischemic attack) [G45.9] HTN (hypertension) [I10] GERD (gastroesophageal reflux disease) [K21.9] UTI (urinary tract infection) [N39.0] 01/25/2020 Encounter Status:Closed by JO CRUZ RN on 02/02/20 [facility] CNPN Telephone (AK52B) -------- YUDIVELIA ([id number]) 1960 M Date Time Provider Department 02/02/20 [...] 02, 2020 TIME: 1:05 PM PAGER/CONTACT #: [phone] Patient doing well at home, was re-admitted to hospital from SNF, was discharged then to home with the [facility]. He is doing very well, pain [...] Cervicalgia [M54.2] 04/14/2013 Myalgia and myositis, unspecified [[id number]] 04/14/2013 Iron deficiency anemia [D50.9] 06/10/2016 Weakness [R53.1] 06/24/2016 Lymphadenopathy [R59.1] 02/11/2018 More... Closed displaced fracture of right femoral neck*10/16/2019 Status post total hip replacement, right [Z96.6*01/16/2020 01/20/2020 Sepsis (HCC) [A41.9] 01/24/2020 01/27/2020 TIA (transient ischemic attack) [G45.9] HTN (hypertension) [I10] GERD (gastroesophageal reflux disease) [K21.9] UTI (urinary tract infection) [N39.0] 01/25/2020 Encounter Status:Closed by JO CRUZ RN on 02/02/20 [facility] PROGRESSon 02-02-2020 PROGRESS HNO ID: [id number] Author: Hiral Castaneda Service: ? Author Type: [...] if he has any problems. GAV [facility] CNOVon 01-31-2020 CNOV Office Visit (AGPOB1 ) -------- VELIA BAGLEY ([id number]) 1960 M Date Time Provider Department 01/31/20 [...] any problems. GAV Referring Provider: HIRAL CASTANEDA [[id number]] Allergies As of Date: 01/31/2020 Noted Allergy [...] Cervicalgia [M54.2] 04/14/2013 Myalgia and myositis, unspecified [[id number]] 04/14/2013 Iron deficiency anemia [D50.9] 06/10/2016 Weakness [...] by HIRAL CASTANEDA MD on 02/02/20 [facility] Basic Metabolic Panelon 01-03 Anion gap [Moles/Vol] 10 mmol/L Normal 9-18 [facility] Comment on above: Performed By: #### B MP #### [facility] [address] [place], [place] [address] Calcium [Mass/Vol] 8.2 mg/dL Low 8.5-10.2 [facility] Comment on above: Performed By: #### B MP #### [facility] [address] [place], [place] [address] Chloride [Moles/Vol] 112 mmol/L High 97-105 [facility] Comment on above: Performed By: #### B MP #### [facility] [address] [place], [place] [address] CO2 Blood 19 mmol/L Low 22-30 [facility] Comment on above: Performed By: #### B MP #### [facility] [address] [place], [place] [address] Creatinine [Mass/Vol] 0.85 mg/dL Normal 0.73-1.22 [facility] Comment on above: Performed By: #### B MP #### [facility] [address] [place], [place] [address] Glucose [Mass/Vol] 84 mg/dL Normal 74-99 [facility] Comment on above: Result Comment: The [place] [employer] (ADA) provides guidance for cutoff [...] Standards of Medical Care in Diabetes 2016; [place] [employer]. Diabetes Care. 2016;39(Suppl 1). Performed By: #### B MP #### [facility] [address] [place], [place] [address] Potassium [Moles/Vol] 3.6 mmol/L Low 3.7-5.1 [facility] Comment on above: Performed By: #### B MP #### [facility] [address] [place], [place] [address] Sodium [Moles/Vol] 141 mmol/L Normal 136-144 [facility] Comment on above: Performed By: #### B MP #### [facility] [address] [place], [place] [address] Urea nitrogen [Mass/Vol] 11 mg/dL Normal 9-24 [facility] Comment on above: Performed By: #### B MP #### [facility] [address] [place], [place] [address] CASE MANAGEMon 01-27-2020 CASE MANAGEM HNO ID: [id number] Author: Saira (Rn) BULL Chavez Service: Care Management Author Type: Registered Nurse Type: Care Mgt Progress Note Filed: 01/27/2020 12:11 PM Note Text: CARE MANAGEMENT DISCHARGE NOTE SERVICE DATE: 01/27/2020 SERVICE TIME: 12:09 PM LOS: 3 days Admission Date: 01/24/2020 DISCHARGE ARRANGEMENT (list agency and phone number) Discharge Arrangement: Home;Home Senior Living Care: Nursing;PT;OT Provider Name: Linette CAREGIVER ASSESSMENT: HANDOFF COMMUNICATION: Handoff to: Primary Care Physician Primary Care Physician Name/Phone: Rachel Rayo MD TRANSPORTATION ARRANGEMENTS: Transportation Arrangements: Car ADDITIONAL CONTACT RESOURCES: none Patient has been discharged home with [facility]. Homecare orders and Discharge Summary have been faxed. SIGNATURE: Saira Chavez RN PATIENT NAME: Velia Bagley DATE: January 27, 2020 TIME: 12:09 PM PAGER/CONTACT #: [phone] Normal [facility] Hemogram/Diffon 01-27-2020 Abs Immature Grans 0.09 thou/cmm High 0.00-0.05 [facility] Comment on above: Performed By: #### R COVD #### [facility] [address] [place] [address] Abs Neut (ANC) 3.47 thou/cmm Normal 1.78-5.38 [facility] Comment on above: Performed By: #### R COVD #### [facility] [address] [place] [address] Abs. Baso 0.01 thou/cmm Normal 0.01-0.08 [facility] Comment on above: Performed By: #### R COVD #### [facility] [address] [place] [address] Abs. [place] 0.37 thou/cmm Normal 0.30-0.82 [facility] Comment on above: Performed By: #### R COVD #### [facility] [address] [place] [address] Basophils/100 WBC (Bld) 0.2 % Normal [facility] Comment on above: Performed By: #### R COVD #### [facility] [address] [place] [address] Eosinophils (Bld) [#/Vol] 0.00 thou/cmm Low 0.04-0.54 [facility] Comment on above: Performed By: #### R COVD #### [facility] [address] [place] [address] Eosinophils/100 WBC (Bld) 0.0 % Normal [facility] Comment on above: Performed By: #### R COVD #### [facility] [address] [place] [address] Erythrocyte distribution width (RBC) [Ratio] 15.6 % High 11.6-14.4 [facility] Comment on above: Performed By: #### R COVD #### [facility] [address] [place] [address] Hematocrit (Bld) [Volume fraction] 26.8 % Low 40.1-51.0 [facility] Comment on above: Performed By: #### R COVD #### [facility] [address] [place] [address] Hemoglobin (Bld) [Mass/Vol] 8.6 g/dL Low 13.7-17.5 [facility] Comment on above: Performed By: #### R COVD #### [facility] [address] [place] [address] Immature Grans 1.80 % Normal [facility] Comment on above: Performed By: #### R COVD #### [facility] [address] [place], [place] [address] Lymphocytes (Bld) [#/Vol] 1.19 thou/cmm Normal 0.84-2.85 [facility] Comment on above: Performed By: #### R COVD #### [facility] [address] [place], [place] [address] Lymphocytes/100 WBC (Bld) 23.2 % Normal [facility] Comment on above: Performed By: #### R COVD #### [facility] [address] [place], [place] [address] MCH (RBC) [Entitic mass] 29.3 pg Normal 25.7-32.2 [facility] Comment on above: Performed By: #### R COVD #### [facility] [address] [place], [place] [address] MCHC (RBC) [Mass/Vol] 32.1 % Low 32.3-36.5 [facility] Comment on above: Performed By: #### R COVD #### [facility] [address] [place], [place] [address] MCV (RBC) [Entitic vol] 91.2 fL Normal 83.2-95.6 [facility] Comment on above: Performed By: #### R COVD #### [facility] [address] [place], [place] [address] Monocytes/100 WBC (Bld) 7.2 % Normal [facility] Comment on above: Performed By: #### R COVD #### [facility] [address] [place], [place] [address] Platelet mean volume (Bld) [Entitic vol] 9.3 fL Normal 8.7-12.0 [facility] Comment on above: Performed By: #### R COVD #### [facility] [address] [place], [place] [address] Platelets (Bld) [#/Vol] 191 thou/cmm Normal 141-365 [facility] Comment on above: Performed By: #### R COVD #### [facility] [address] [place] [address] RBC (Bld) [#/Vol] 2.94 mil/cmm Low 4.63-6.08 [facility] Comment on above: Performed By: #### R COVD #### [facility] [address] [place] [address] RDW SD 51.7 fl High 36.1-45.8 [facility] Comment on above: Performed By: #### R COVD #### [facility] [address] [place] [address] Seg Neutrophil 67.6 % Normal [facility] Comment on above: Performed By: #### R COVD #### [facility] [address] [place] [address] WBC (Bld) [#/Vol] 5.14 thou/cmm Normal 4.23-9.07 [facility] Comment on above: Performed By: #### R COVD #### [facility] [address] [place] [address] MDRD GFRon 01-27-2020 GFR/1.73 sq M predicted among non-blacks MDRD (S/P/Bld) [Vol rate/Area] mL/min/{1.73_m2} Normal >60mL/min/1. 73m2 [facility] Comment on above: Result Comment: If t he patient is , multiply the result by 1.210. Performed By: #### B MP #### [place] [address] PLAN OF CAREon 01-27-2020 PLAN OF CARE HNO ID: [id number] Author: Betty Watkins (Pharmacist) Service: Pharmacy Author [...] PHARMACIST January 27, 2020 11:45 AM Pager: [phone] 01/27/2020 11:45 AM Medication List START taking [...] These medications were sent to [facility] [address] [phone] [place] [address] ? cefdinir 300 mg capsule Normal [facility] THERAPY NTon 01-27-2020 THERAPY NT HNO ID: [id number] Author: Yazan (Pt) Miguelina Service: Physical Therapy Author Type: Physical Therapist Type: Therapy (PT/OT/Speech/Resp) Filed: 01/27/2020 11:40 AM Note Text: Physical Therapy Treatment SERVICE DATE: 01/27/2020 SERVICE TIME: 1103 to 1119 ROOM: [place] [address] Recommended Discharge Disposition: Home PT Recommended Discharge [...] Patient Lives With: Family(son ) Assistance Available: boom master Entry To Home: No Stairs Number Of [...] ss on feet Interventions Provided: Therapeutic Exercise (01101);Gait Training (77048) Therapeutic Exercise (00683) Treatment Minutes: 10 $ Therapeutic Exercise (14452) Billed Units: 1 unit Patient completed R [...] elevated lower extremity as needed. Gait Training (47578) Treatment Minutes: 6 $ Gait Training (40603) Billed Units: 0 units Cuing for tall [...] January 27, 2020 TIME: 11:36 AM Normal [facility] XR PELVIS 1V APon 01-27-2020 XR PELVIS [...] of surgical hardware appears in appropriate position. Manager Front Office: PSCB Transcribe Date/Time: Jan 27 2020 7:58A Dictated by : NATHAN BELCHER MD This examination was interpreted and the report reviewed and electronically signed by: NATHAN BELCHER MD on Jan 27 2020 8:01AM EST Normal [facility] Basic Metabolic Panelon 09- Anion gap [Moles/Vol] 10 mmol/L Normal 9-18 [facility] Comment on above: Performed By: #### B MP #### [facility] [address] [place], [place] [address] Calcium [Mass/Vol] 8.5 mg/dL Normal 8.5-10.2 [facility] Comment on above: Performed By: #### B MP #### [facility] [address] [place], [place] [address] Chloride [Moles/Vol] 111 mmol/L High 97-105 [facility] Comment on above: Performed By: #### B MP #### [facility] [address] [place], [place] [address] CO2 Blood 19 mmol/L Low 22-30 [facility] Comment on above: Performed By: #### B MP #### [facility] [address] [place], [place] [address] Creatinine [Mass/Vol] 0.88 mg/dL Normal 0.73-1.22 [facility] Comment on above: Performed By: #### B MP #### [facility] [address] [place], [place] [address] Glucose [Mass/Vol] 84 mg/dL Normal 74-99 [facility] Comment on above: Result Comment: The [place] Diabetes [employer] (ADA) provides guidance for cutoff [...] Standards of Medical Care in Diabetes 2016; [place] [employer]. Diabetes Care. 2016;39(Suppl 1). Performed By: #### B MP #### [facility] [address] [place], [place] [address] Potassium [Moles/Vol] 3.3 mmol/L Low 3.7-5.1 [facility] Comment on above: Performed By: #### B MP #### [facility] [address] [place], [place] [address] Sodium [Moles/Vol] 140 mmol/L Normal 136-144 [facility] Comment on above: Performed By: #### B MP #### [facility] [address] [place], [place] [address] Urea nitrogen [Mass/Vol] 11 mg/dL Normal 9-24 [facility] Comment on above: Performed By: #### B MP #### [facility] [address] [place], [place] [address] Hemogram/Diffon 01-26-2020 Abs Immature Grans 0.08 thou/cmm High 0.00-0.05 [facility] Comment on above: Performed By: #### B MP #### [facility] [address] [place] [address] Abs Neut (ANC) 6.12 thou/cmm High 1.78-5.38 [facility] Comment on above: Performed By: #### B MP #### [facility] [address] [place] [address] Abs. Baso 0.01 thou/cmm Normal 0.01-0.08 [facility] Comment on above: Performed By: #### B MP #### [facility] [facility] [address] [address] Abs. [place] 0.52 thou/cmm Normal 0.30-0.82 [facility] Comment on above: Performed By: #### B MP #### [place] [address] Basophils/100 WBC (Bld) 0.1 % Normal [facility] Comment on above: Performed By: #### B MP #### [facility] [address] [address] Eosinophils (Bld) [#/Vol] 0.00 thou/cmm Low 0.04-0.54 [facility] Comment on above: Performed By: #### B MP #### [place] [address] Eosinophils/100 WBC (Bld) 0.0 % Normal [facility] Comment on above: Performed By: #### B MP #### [place] [address] Erythrocyte distribution width (RBC) [Ratio] 15.8 % High 11.6-14.4 [facility] Comment on above: Performed By: #### B MP #### [place] [address] Hematocrit (Bld) [Volume fraction] 27.2 % Low 40.1-51.0 [facility] Comment on above: Performed By: #### B MP #### [place] [address] Hemoglobin (Bld) [Mass/Vol] 9.0 g/dL Low 13.7-17.5 [facility] Comment on above: Performed By: #### B MP #### [facility] [address] [address] Immature Grans 1.00 % Normal [facility] Comment on above: Performed By: #### B MP #### [facility] [address] [address] Lymphocytes (Bld) [#/Vol] 1.11 thou/cmm Normal 0.84-2.85 [facility] Comment on above: Performed By: #### B MP #### [facility] [address] [address] Lymphocytes/100 WBC (Bld) 14.2 % Normal [facility] Comment on above: Performed By: #### B MP #### [place] [address] MCH (RBC) [Entitic mass] 29.9 pg Normal 25.7-32.2 [facility] Comment on above: Performed By: #### B MP #### [facility] [address] [address] MCHC (RBC) [Mass/Vol] 33.1 % Normal 32.3-36.5 [facility] Comment on above: Performed By: #### B MP #### [place] [address] MCV (RBC) [Entitic vol] 90.4 fL Normal 83.2-95.6 [facility] Comment on above: Performed By: #### B MP #### [facility] [address] [address] Monocytes/100 WBC (Bld) 6.6 % Normal [facility] Comment on above: Performed By: #### B MP #### [facility] [address] [address] Platelet mean volume (Bld) [Entitic vol] 8.8 fL Normal 8.7-12.0 [facility] Comment on above: Performed By: #### B MP #### [address] [place], [place] [address] Platelets (Bld) [#/Vol] 186 thou/cmm Normal 141-365 [facility] Comment on above: Performed By: #### B MP #### [facility] [address] [place], [place] [address] RBC (Bld) [#/Vol] 3.01 mil/cmm Low 4.63-6.08 [facility] Comment on above: Performed By: #### B MP #### [facility] [address] [place], [place] [address] RDW SD 51.9 fl High 36.1-45.8 [facility] Comment on above: Performed By: #### B MP #### [facility] [address] [address] Seg Neutrophil 78.1 % Normal [facility] Comment on above: Performed By: #### B MP #### [facility] [address] [place], [place] [address] WBC (Bld) [#/Vol] 7.83 thou/cmm Normal 4.23-9.07 [facility] Comment on above: Performed By: #### B MP #### [facility] [address] [address] PROGRESSon 01-26-2020 PROGRESS HNO ID: [id number] Author: Rich Oates Service: Infectious Disease Author [...] CONTINUOUS - sodium chloride 0.65 % 2 Centerpoint (AYR, OCEAN) 2 [facility]point EACH NOSTRIL PRN - gabapentin 800 mg [...] since. Apparently was 105 ?F at the [facility] General? cannot awaken and eventually open eyes [...] MD 01/26/2020 5:39 PM pgr [phone] Normal [facility] PROGRESS HNO ID: [id number] Author: Fanta Pettit Service: Hospital Medicine Author Type: Physician Type: Progress Notes Filed: 01/26/2020 6:01 PM Note Text: DEPARTMENT OF HOSPITAL MEDICINE PROGRESS NOTE SERVICE DATE: 01/26/2020 SERVICE TIME: 2:00 PM Hospital Medicine/Primary Attending: Fanta Pettit, DO NIGHT AND WEEKEND COVERAGE: After 7pm please page [phone] CHIEF COMPLAINT: Fevers SUBJECTIVE: Patient seen and [...] CONTINUOUS - sodium chloride 0.65 % 2 Centerpoint (AYR, OCEAN) 2 [facility] EACH NOSTRIL PRN - gabapentin 800 mg [...] urinary retention, TIA, DVT who presented to [facility] with fevers. Found to need criteria for [...] 0230 vte non-pharmacologic prophylaxis - none indicated ([place]) 01/25/20 023 vte current anticoag therapy ([place]) 01/25/20 023 activity - mobilize patient ([place]) Lines, Drains, and Airways Line Peripheral [...] this note may have been generated using [employer] voice recognition software. Reasonable efforts were made to correct any dictation errors that resulted due to the programming of this software but some may still be present. Normal [facility] THERAPY NTon 01-26-2020 THERAPY NT HNO ID: [id number] Author: Marta Ohr/Fiorella Garza Service: Occupational Therapy Author Type: Occupational Therapist Type: Therapy (PT/OT/Speech/Resp) Filed: 01/26/2020 10:48 AM Note Text: OCCUPATIONAL THERAPY MISSED VISIT SERVICE DATE: 01/26/2020 SERVICE TIME: 1035 to 1035 ROOM: [place] [address] Attempted Evaluation. Patient not seen due to Declined.Education provided in role of OT in acute hospital setting to facilitate safety and participation in self-care tasks with assisting with discharge planning. Patient declines OT services stating he feels is had no OT needs at this time. OT to sign off. SIGNATURE: Marta Garza OTR/L PATIENT NAME: Velia Bagley DATE: January 26, 2020 TIME: 10:48 AM Normal [facility] XR CHEST 1V FRONTALon 2019 XR CHEST [...] Other: None. IMPRESSION: No acute radiographic abnormality. Manager Front Office: HOLLY Transcribe Date/Time: Jan 26 2020 7:16A Dictated by : JAYANT GUTHRIE MD This examination was interpreted and the report reviewed and electronically signed by: JAYANT GUTHRIE MD on Jan 26 2020 7:18AM EST Normal [facility] Basic Metabolic Panelon - Anion gap [Moles/Vol] 11 mmol/L Normal 9-18 [facility] Comment on above: Performed By: #### U RIN2 #### [address] [address] Calcium [Mass/Vol] 7.6 mg/dL Low 8.5-10.2 [facility] Comment on above: Performed By: #### U RIN2 #### [address] [address] Chloride [Moles/Vol] 108 mmol/L High 97-105 [facility] Comment on above: Performed By: #### U RIN2 #### [facility] [address] [place], [place] [address] CO2 Blood 17 mmol/L Low 22-30 [facility] Comment on above: Performed By: #### U RIN2 #### [facility] [address] [place], [place] [address] Creatinine [Mass/Vol] 0.86 mg/dL Normal 0.73-1.22 [facility] Comment on above: Performed By: #### U RIN2 #### [facility] [address] [place], [place] [address] Glucose [Mass/Vol] 109 mg/dL High 74-99 [facility] Comment on above: Result Comment: The [place] Diabetes Association (ADA) provides guidance for cutoff [...] Standards of Medical Care in Diabetes 2016; [place] [employer]. Diabetes Care. 2016;39(Suppl 1). Performed By: #### U RIN2 #### [facility] [address] [place], [place] [address] Potassium [Moles/Vol] 3.8 mmol/L Normal 3.7-5.1 [facility] Comment on above: Performed By: #### U RIN2 #### [facility] [address] [place], [place] [address] Sodium [Moles/Vol] 136 mmol/L Normal 136-144 [facility] Comment on above: Performed By: #### U RIN2 #### [facility] [address] [place], [place] [address] Urea nitrogen [Mass/Vol] 11 mg/dL Normal 9-24 [facility] Comment on above: Performed By: #### U RIN2 #### [facility] [address] [address] CASE MGT INIT Mio 2019 CASE MGT INIT INES HNO ID: [id number] Author: Saira (Rn) BULL Chavez Service: Care [...] Choices;Insurance Authorization;Home Care Order;Discharge Transportation [facility]/Well [place]er [place] Stated Goals: To have reduction in symptoms;To return home to life as it was Health Insurance: Susie Health Issues Impacting Discharge Plan: Uncontrolled;Newly diagnosed Uncontrolled: shaking Newly Diagnosed: sepsis Last Discharge Date: 01/21/20 Is this Within the Past 30 days? Last discharge within 30 days: Yes Is this a planned readmission?: No Unplanned Reason: Recurring symptoms of underlying disease Followed Up with Appointment Prior to Admission: Patient scheduled, but readmitted prior Advance Directive: Current Advance Directive: Health Care Power of Rn Neurology In Chart: No Nurse Instructor Attempted to Assist with AD Completion: Yes [...] breathing/Respiratory Treatments Location and Dates: Admitted from [facility] SOCIAL: Living Arrangements: Nursing Facility Lives With: [...] Mostly I feel financially burdened by my [id number] expenses for my prescription medication:: 0 - Disagree Mostly Risk Score: 0 Patient is categorized as: Low risk < 2 Are you interested in bedside delivery of your medications? Yes Is Patient Psychosocially Complex?: No ASSESSMENT AND PLAN: Medical Needs: Medical Needs: Two or more chronic diseases Psychosocial Needs: Psychosocial Needs: None FREEDOM OF CHOICE EXPLAINED: [place] of Choice Given: Yes Level of Care [...] Care Patient just here and discharged to [facility] on 01/20. Now readmitted 3 days later. Wants to go home, not return to [facility] at discharge. Patient previously from home with his son. Was indep with ADL's previously, driving, working. Has walker, cane, nebulizer at home. Dtr. to transport at discharge. SIGNATURE: Saira Chavez RN PATIENT NAME: Velia Bagley DATE: January 25, 2020 TIME: 12:05 PM PAGER/CONTACT #: [phone] Normal [facility] CONSULTon 01-25-2020 CONSULT HNO ID: [id number] Author: Rich Oates Service: Infectious Disease Author [...] Osteoarthritis - Severe persistent asthma Dr Sarmiento patient monitor - TIA (transient ischemic attack) 2016 2017 [...] CONTINUOUS - sodium chloride 0.65 % 2 [facility]point (AYR, OCEAN) 2 [facility] EACH NOSTRIL PRN - gabapentin 800 mg [...] since. Apparently was 105 ?F at the [facility] General? cannot awaken and eventually open eyes [...] TIME: 1:48 PM PAGER/CONTACT #: [phone] Normal [facility] ED PROV NOTEon 01-25-2020 ED PROV NOTE HNO ID: [id number] Author: Abby Pisano MD Service: Emergency Medicine [...] Osteoarthritis - Severe persistent asthma Dr Sarmiento patient monitor - TIA (transient ischemic attack) 2017 2018 [...] details Abby Pisano MD 01/25/20 0009 Normal [facility] HISTORY PHYSICALon 0 HISTORY PHYSICAL HNO ID: [id number] Author: Liv Andrade APRN.JACLYN Service: Hospital Medicine Author Type: Nurse Practitioner Type: HANDP Filed: 01/25/2020 1:59 AM Note Text: -------- Attestation signed by Thom Pacsual DO at 01/25/2020 3:17 AM Patient independently [...] fevers -Monitor culture results -------- [facility] OF [facility] MEDICINE HISTORY AND PHYSICAL EXAM SERVICE DATE: 01/24/2020 SERVICE TIME: 11:18 PM Primary Care Physician: Rachel Rayo MD NIGHT AND WEEKEND COVERAGE: From 7am - 7pm, please call Sound attending After 7pm, please call cross cover pager #[phone] Subjective CHIEF COMPLAINT: Fever HPI: This is a 60 year old male with a PMH of asthma, COPD, TIA, HTN, BPH, urinary retention straight cath's, recent right femoral fracture s/p total hip replacement 01/15 that presented from [facility] rehab facility for fever. Pt reports chills that started earlier today. Per EMS he had a fever of 105 F at [facility]. Pt reports cloudy urine and the urge [...] Osteoarthritis - Severe persistent asthma Dr Sarmiento patient monitor - TIA (transient ischemic attack) 2017 2018 [...] Heart Failure Father 72 of CHF. 2 [place] before that - Parkinson?s Disease Father 68 [...] Dye [Iodine] Anaphylaxis - Penicillins Rash - [place] Oil Unknown - Propranolol Other: See Comments [...] In Impression IMPRESSION: No acute radiographic abnormality. Manager Front Office: HOLLY ? Transcribe Date/Time: Jan 24 2020 [...] probability for pulmonary embolism is very low. Manager Front Office: HOLLY ? Transcribe Date/Time: Jan 24 2020 [...] home. Does not want to return to [place]. Plan of care discussed with: Provider and Patient SIGNATURE: Liv Andrade CNP PATIENT NAME: Velia Bagley DATE: January 24, 2020 TIME: 11:18 PM PAGER/CONTACT #: [phone] Normal [facility] Hemogram/Diffon 01-25-2020 Abs Immature Grans 0.19 thou/cmm High 0.00-0.05 [facility] Comment on above: Performed By: #### C BCD1 #### [place] [address] Abs Neut (ANC) 11.45 thou/cmm High 1.78-5.38 [facility] Comment on above: Performed By: #### C BCD1 #### [facility] [address] [address] Abs. Baso 0.01 thou/cmm Normal 0.01-0.08 [facility] Comment on above: Performed By: #### C BCD1 #### [facility] [address] [address] Abs. [place] 0.72 thou/cmm Normal 0.30-0.82 [facility] Comment on above: Performed By: #### C BCD1 #### [facility] [address] [address] Basophils/100 WBC (Bld) 0.1 % Normal [facility] Comment on above: Performed By: #### C BCD1 #### [facility] [address] [address] Eosinophils (Bld) [#/Vol] 0.00 thou/cmm Low 0.04-0.54 [facility] Comment on above: Performed By: #### C BCD1 #### [facility] [address] [address] Eosinophils/100 WBC (Bld) 0.0 % Normal [facility] Comment on above: Performed By: #### C BCD1 #### [facility] [address] [address] Immature Grans 1.40 % Normal [facility] Comment on above: Performed By: #### C BCD1 #### [facility] [address] [address] Lymphocytes (Bld) [#/Vol] 0.90 thou/cmm Normal 0.84-2.85 [facility] Comment on above: Performed By: #### C BCD1 #### [facility] [address] [address] Lymphocytes/100 WBC (Bld) 6.8 % Normal [facility] Comment on above: Performed By: #### C BCD1 #### [facility] [address] [address] Monocytes/100 WBC (Bld) 5.4 % Normal [facility] Comment on above: Performed By: #### C BCD1 #### [facility] [address] [address] Seg Neutrophil 86.3 % Normal [facility] Comment on above: Performed By: #### C BCD1 #### [facility] [address] [address] Erythrocyte distribution width (RBC) [Ratio] 16.0 % High 11.6-14.4 [facility] Comment on above: Performed By: #### C BCD1 #### [facility] [address] [address] Hematocrit (Bld) [Volume fraction] 28.0 % Low 40.1-51.0 [facility] Comment on above: Performed By: #### C BCD1 #### [facility] [address] [address] Hemoglobin (Bld) [Mass/Vol] 9.0 g/dL Low 13.7-17.5 [facility] Comment on above: Performed By: #### C BCD1 #### [facility] [address] [address] MCH (RBC) [Entitic mass] 29.4 pg Normal 25.7-32.2 [facility] Comment on above: Performed By: #### C BCD1 #### [facility] [address] [address] MCHC (RBC) [Mass/Vol] 32.1 % Low 32.3-36.5 [facility] Comment on above: Performed By: #### C BCD1 #### [facility] [address] [address] MCV (RBC) [Entitic vol] 91.5 fL Normal 83.2-95.6 [facility] Comment on above: Performed By: #### C BCD1 #### [facility] [address] [address] Platelet mean volume (Bld) [Entitic vol] 9.0 fL Normal 8.7-12.0 [facility] Comment on above: Performed By: #### C BCD1 #### [facility] [address] [place], [place] [address] Platelets (Bld) [#/Vol] 231 thou/cmm Normal 141-365 [facility] Comment on above: Performed By: #### C BCD1 #### [facility] [address] [address] RBC (Bld) [#/Vol] 3.06 mil/cmm Low 4.63-6.08 [facility] Comment on above: Performed By: #### C BCD1 #### [facility] [address] [address] RDW SD 52.6 fl High 36.1-45.8 [facility] Comment on above: Performed By: #### C BCD1 #### [facility] [address] [address] WBC (Bld) [#/Vol] 13.27 thou/cmm High 4.23-9.07 [facility] Comment on above: Performed By: #### C BCD1 #### [facility] [address] [address] NUTRITIONon 01-25-2020 NUTRITION HNO ID: [id number] Author: Ed Mcfarland RD Service: Nutrition Therapy [...] by: Nausea;Patient/family self-report;Weight loss Estimated kilocalorie needs: 8573-1016 Calorie Calculation Method: 25-30 kcals/kg Estimated protein [...] January 25, 2020 TIME: 10:53 AM PAGER: [phone] Normal [facility] PLAN OF CAREon 01-25-2020 PLAN OF CARE HNO ID: [id number] Author: Betty Watkins (Pharmacist) Service: Pharmacy Author Type: Pharmacist Type: Plan of Care Filed: 01/25/2020 2:17 PM Note Text: MEDICATION HISTORY AND MEDICATION RECONCILIATION Patient Name:Kathe Bagley : 1960 Source of history:long term/Other MAR - [facility] and [facility] records. Patient was just discharged from [facility] 01/21/20. Medication Nonadherence Identified: No barriers noted The above information represents the best possible medication history: Yes Reconciliation completed? Yes All PANTS CLOSER medications addressed by LIP [id number] Medication List Adjustments: Medication Regimen Changes: NA [...] Dye [Iodine] Anaphylaxis - Penicillins Rash - [place] Oil Unknown - Propranolol Other: See Comments Severe low bp and kidneys shutting down. - Sulfa (Sulfonamide * Rash, Itching - Valium [Diazepam] Other: See Comments Depression Preferred Pharmacy: NA patient is from [facility] Current PANTS CLOSER Medications: Prior to Admission medications as of [...] PHARMACIST January 25, 2020 2:13 PM [facility] PROGRESSon 01-25-2020 PROGRESS HNO ID: [id number] Author: Fanta Pettit Service: Hospital Medicine Author Type: Physician Type: Progress Notes Filed: 01/26/2020 11:58 AM Note Text: DEPARTMENT OF HOSPITAL MEDICINE PROGRESS NOTE SERVICE DATE: 01/25/2020 SERVICE TIME: 2:32 PM Hospital Medicine/Primary Attending: Fanta Pettit, DO NIGHT AND WEEKEND COVERAGE: After 7pm please page [phone] CHIEF COMPLAINT: Fevers SUBJECTIVE: Pt seen and [...] INTRAVENOUS CONTINUOUS sodium chloride 0.65 % 2 [facility]point (AYR, OCEAN) 2 [facility] EACH NOSTRIL PRN gabapentin 800 mg cap(s) [...] urinary retention, TIA, DVT who presented to [facility] with fevers. Found to need criteria for [...] 01/25/20229 vte non-pharmacologic prophylaxis - none indicated (wa,ma) 01/25/20229 vte current anticoag therapy (wa,ma) 01/25/20229 activity - mobilize patient ([place]) Lines, Drains, and Airways Line Peripheral 01/24/20 [...] this note may have been generated using [employer] voice recognition software. Reasonable efforts were made to correct any dictation errors that resulted due to the programming of this software but some may still be present. Normal [facility] THERAPY NTon 01-25-2020 THERAPY NT HNO ID: [id number] Author: Yazan (Pt) Miguelina Service: Physical Therapy Author Type: Physical Therapist Type: Therapy (PT/OT/Speech/Resp) Filed: 01/25/2020 3:55 PM Note Text: Physical Therapy Treatment SERVICE DATE: 01/25/2020 SERVICE TIME: 1513 to 1530 ROOM: [place] [address] Recommended Discharge Disposition: Home PT Recommended Discharge [...] ss on feet Interventions Provided: Therapeutic Activity (94658);Gait Training (27041) Therapeutic Activity (65805) Treatment Minutes: 5 0 units Skilled Intervention(s): [...] extremities to resume supine position. Gait Training (27185) Treatment Minutes: 12 1 unit Skilled Intervention(s): [...] Patient Lives With: Family(son ) Assistance Available: boom master Entry To Home: No Stairs Number Of [...] January 25, 2020 TIME: 3:42 PM Normal [facility] THERAPY NT HNO ID: [id number] Author: Taylor Pennington OT Service: Occupational Therapy Author Type: Occupational Therapist Type: Therapy (PT/OT/Speech/Resp) Filed: 01/25/2020 11:15 AM Note Text: OCCUPATIONAL THERAPY MISSED VISIT SERVICE DATE: 01/25/2020 SERVICE TIME: 1035 to 1037 ROOM: [place] [address] Attempted Evaluation. Patient not seen due to Declined. Patient decline therapy due dizziness and fatigue. Will re-attempt OT evaluation as able. SIGNATURE: Taylor Pennington OT/Matt PATIENT NAME: Velia Bagley DATE: January 25, 2020 TIME: 11:14 AM Normal [facility] THERAPY NT HNO ID: [id number] Author: Yazan Mcintyre Service: Physical Therapy Author Type: Physical Therapist Type: Therapy (PT/OT/Speech/Resp) Filed: 01/25/2020 8:36 AM Note Text: Physical Therapy Evaluation SERVICE DATE: 01/25/2020 SERVICE TIME: 0758 to 0822 ROOM: [id number] Recommended Discharge Disposition: Acute Rehab(vs. Home PT [...] factors complicating the discharge of son with parts counter representative assist. This patient is below baseline functioning [...] ss on feet Interventions Provided: Evaluation;Therapeutic Exercise (68544) $ Evaluation-Moderate (65894) Billed Units: 1 unit History and examination of body systems see assessment section above. This patient?s clinical presentation is evolving. The patient required a moderate complexity evaluation. Therapeutic Exercise (18556) Treatment Minutes: 9 1 unit Skilled Intervention(s): [...] Patient Lives With: Family(son ) Assistance Available: boom master Entry To Home: No Stairs Number Of [...] January 25, 2020 TIME: 8:31 AM Normal [facility] Troponin T, High Sens.on Troponin T, High Sens. 35 ng/L High 0-11 [facility] Comment on above: Result Comment: Mima [...] result. Performed By: #### C BC1 #### [place] [address] CONSULTon 01-24-2020 CONSULT HNO ID: [id number] Author: Hiral Castaneda Service: Orthopaedic Surgery Author [...] HPI: 60 year old male presented to [facility] from a SNF with tachycardia, fever [...] 105 at SNF, but was afebrile at [facility] ED. Patient states that in regards [...] Osteoarthritis - Severe persistent asthma Dr Sarmiento patient monitor - TIA (transient ischemic attack) 2016 2017 [...] Indocin [Indomethacin Sodium], Ivp Dye [Iodine], Penicillins, [place] Oil, Propranolol, Sulfa (Sulfonamide Antibiotics), and Valium [...] Heart Failure Father 72 of CHF. 2 [place] before that - Parkinson?s Disease Father 68 [...] Orthopaedic Surgery, PGY-2 01/24/2020 8:09 PM Normal [facility] CRPon 01-24-2020 CRP [Mass/Vol] 1.5 mg/dL High 0.0-0.8 [facility] Comment on above: Performed By: #### C BC1 #### [place] [address] Comprehensive Metabolic Pane nanette 01-24-2020 Albumin [Mass/Vol] 3.8 g/dL Low 3.9-4.9 [facility] Comment on above: Performed By: #### C BC1 #### [place] [address] ALP [Catalytic activity/Vol] 144 U/L High 38-113 [facility] Comment on above: Performed By: #### C BC1 #### [place] [address] ALT [Catalytic activity/Vol] 27 U/L Normal 10-54 [facility] Comment on above: Performed By: #### C BC1 #### [facility] [address] [place] [address] Anion gap [Moles/Vol] 15 mmol/L Normal 9-18 [facility] Comment on above: Performed By: #### C BC1 #### [facility] [address] [place] [address] AST [Catalytic activity/Vol] 24 U/L Normal 14-40 [facility] Comment on above: Performed By: #### C BC1 #### [facility] [address] [place] [address] Bilirubin [Mass/Vol] 0.3 mg/dL Normal 0.2-1.3 [facility] Comment on above: Performed By: #### C BC1 #### [facility] [address] [place] [address] Calcium [Mass/Vol] 8.6 mg/dL Normal 8.5-10.2 [facility] Comment on above: Performed By: #### C BC1 #### [facility] [address] [place] [address] Chloride [Moles/Vol] 106 mmol/L High 97-105 [facility] Comment on above: Performed By: #### C BC1 #### [facility] [address] [place] [address] CO2 Blood 16 mmol/L Low 22-30 [facility] Comment on above: Performed By: #### C BC1 #### [facility] [address] [place] [address] Creatinine [Mass/Vol] 0.86 mg/dL Normal 0.73-1.22 [facility] Comment on above: Performed By: #### C BC1 #### [facility] [address] [place], [place] [address] Glucose [Mass/Vol] 147 mg/dL High 74-99 [facility] Comment on above: Result Comment: The [place] Diabetes Association (ADA) provides guidance for cutoff [...] Standards of Medical Care in Diabetes 2016; [place] [employer]. Diabetes Care. 2016;39(Suppl 1). Performed By: #### C BC1 #### [facility] [address] [place] [address] Potassium [Moles/Vol] 4.2 mmol/L Normal 3.7-5.1 [facility] Comment on above: Performed By: #### C BC1 #### [place] [address] Protein [Mass/Vol] 6.2 g/dL Low 6.3-8.0 [facility] Comment on above: Performed By: #### C BC1 #### [place] [address] Sodium [Moles/Vol] 137 mmol/L Normal 136-144 [facility] Comment on above: Performed By: #### C BC1 #### [place] [address] Urea nitrogen [Mass/Vol] 12 mg/dL Normal 9-24 [facility] Comment on above: Performed By: #### C BC1 #### [place] [id number] Cult Bloodon 01-24-2020 Cult Blood Test performed at [facility] No growth The blood cultures are under-filled. Adding volumes lower or higher than the quail farmer?s recommended volume* may adversely affect recovery and/or detection of organisms. (*refer to individual bottle labels for correct volumes). Normal [facility] Comment on above: Performed By: #### B MP #### [place] [address] Cult Blood Test performed at [facility] No growth The blood cultures are under-filled. Adding volumes lower or higher than the quail farmer?s recommended volume* may adversely affect recovery and/or detection of organisms. (*refer to individual bottle labels for correct volumes). Normal [facility] Comment on above: Performed By: #### B MP #### [facility] [address] [place], [place] [address] Cult Urineon 01-24-2020 Cult Urine Test performed at [facility] ORGANISM: *Klebsiella pneumoniae (ID: 1) >100,000 CFU/ml CLSI breakpoints for therapy of uncomplicated UTI due to E. coli, K. pneumoniae or P. mirabilis were applied and may be used to predict the activity of oral agents (cefdinir, cefpodoxime, cefuroxime, and cephalexin). Normal [facility] Comment on above: Performed By: #### B MP #### [place] [address] ED NOTEon 01-24-2020 ED NOTE HNO ID: [id number] Author: Rosa (Rn) BULL Sanchez Service: ? Author Type: Registered Nurse Type: ED Notes Filed: 01/24/2020 5:22 PM Note Text: Bed: 06-ED Expected date: Expected time: Means of arrival: Comments: gin Normal [facility] ED PROV NOTEon 01-24-2020 ED PROV NOTE HNO ID: [id number] Author: Adams Royal MD Service: Emergency Medicine [...] History Patient presents with: Fever: Pt [facility] [place] There for rehab from femur fracture. Hx [...] Osteoarthritis - Severe persistent asthma Dr Sarmiento patient monitor - TIA (transient ischemic attack) 2016 2017 [...] Heart Failure Father 72 of CHF. 2 [place] before that - Parkinson?s Disease Father 68 [...] Dye [Iodine] Anaphylaxis - Penicillins Rash - [place] [employer] Unknown - Propranolol Other: See Comments [...] components within normal limits VENOUS BLOOD GAS, ED-POC(NV) - Abnormal; Notable for the following components: [...] normal limits Narrative: Meter ID:ED RESP 2 Forest Pathologist Name:Kaitlyn Tamez Location:[facility], [address] [place] [address], [facility] COMPREHENSIVE METABOLIC PANEL (NV,AV,EU,FV,HL,ANEL,MM,SP ) HIGH SENSITIVITY TROPONIN T (NV AV,EU,FV,HL,ANEL,MM,SP) C-REACTIVE PROTEIN (CRP) (AK,AV,EU,FV,HL,ANEL,MM,SP ) VENOUS BLOOD GAS, ED-POC(NV) MDRD GFR LACTIC ACID,POC(NV) HIGH SENSITIVITY TROPONIN T (NV AV,EU,FV,HL,ANEL,MM,SP) URINE CULTURE (AK,AV,EU,FV,HL,ANEL,MM,SP ) BLOOD CULTURE [...] 1034 Abby Pisano MD 01/27/20 1322 Normal [facility] Hemogram/Diffon 01-24-2020 Abs Immature Grans 0.16 thou/cmm High 0.00-0.05 [facility] Comment on above: Performed By: #### C BC1 #### [place] [address] Abs Neut (ANC) 9.58 thou/cmm High 1.78-5.38 [facility] Comment on above: Performed By: #### C BC1 #### [facility] [address] [place] [address] Abs. Baso 0.01 thou/cmm Normal 0.01-0.08 [facility] Comment on above: Result Comment: Smea r scanned; tech agrees with automated differential Performed By: #### C BC1 #### [facility] [address] [place] [address] Abs. [place] 0.42 thou/cmm Normal 0.30-0.82 [facility] Comment on above: Performed By: #### C BC1 #### [place] [address] Basophils/100 WBC (Bld) 0.1 % Normal [facility] Comment on above: Performed By: #### C BC1 #### [place] [address] Eosinophils (Bld) [#/Vol] 0.00 thou/cmm Low 0.04-0.54 [facility] Comment on above: Performed By: #### C BC1 #### [address] [address] Eosinophils/100 WBC (Bld) 0.0 % Normal [facility] Comment on above: Performed By: #### C BC1 #### [place] [address] Immature Grans 1.50 % Normal [facility] [place] [facility] Comment on above: Performed By: #### C BC1 #### [facility] [address] [place], [place] [address] Lymphocytes (Bld) [#/Vol] 0.44 thou/cmm Low 0.84-2.85 [facility] Comment on above: Performed By: #### C BC1 #### [address] [address] Lymphocytes/100 WBC (Bld) 4.1 % Normal [facility] Comment on above: Performed By: #### C BC1 #### [facility] [address] [place] [address] Monocytes/100 WBC (Bld) 4.0 % Normal [facility] Comment on above: Performed By: #### C BC1 #### [facility] [address] [place] [address] Seg Neutrophil 90.3 % Normal [facility] [place] [facility] Comment on above: Performed By: #### C BC1 #### [facility] [address] [place] [address] Erythrocyte distribution width (RBC) [Ratio] 15.9 % High 11.6-14.4 [facility] Comment on above: Performed By: #### C BC1 #### [facility] [address] [place] [address] Hematocrit (Bld) [Volume fraction] 33.4 % Low 40.1-51.0 [facility] Comment on above: Performed By: #### C BC1 #### [facility] [address] [place] [address] Hemoglobin (Bld) [Mass/Vol] 10.8 g/dL Low 13.7-17.5 [facility] Comment on above: Performed By: #### C BC1 #### [facility] [address] [place] [address] MCH (RBC) [Entitic mass] 29.8 pg Normal 25.7-32.2 [facility] Comment on above: Performed By: #### C BC1 #### [facility] [address] [place] [address] MCHC (RBC) [Mass/Vol] 32.3 % Normal 32.3-36.5 [facility] Comment on above: Performed By: #### C BC1 #### [facility] [address] [place] [address] MCV (RBC) [Entitic vol] 92.0 fL Normal 83.2-95.6 [facility] Comment on above: Performed By: #### C BC1 #### [facility] [address] [place] [address] Nucleated RBC (Bld) [#/Vol] 0.02 thou/cmm High 0.00-0.01 [facility] Comment on above: Performed By: #### C BC1 #### [facility] [address] [place], [place] [address] Nucleated RBC/100 WBC (Bld) [Ratio] 0.2 % Normal 0.0-0.2 [facility] Comment on above: Performed By: #### C BC1 #### [facility] [address] [place] [address] Platelet mean volume (Bld) [Entitic vol] 8.7 fL Normal 8.7-12.0 [facility] Comment on above: Performed By: #### C BC1 #### [facility] [address] [place] [id number] Platelets (Bld) [#/Vol] 254 thou/cmm Normal 141-365 [facility] Comment on above: Performed By: #### C BC1 #### [facility] [address] [place] [id number] RBC (Bld) [#/Vol] 3.63 mil/cmm Low 4.63-6.08 [facility] Comment on above: Performed By: #### C BC1 #### [facility] [address] [place] [address] RDW SD 53.1 fl High 36.1-45.8 [facility] Comment on above: Performed By: #### C BC1 #### [facility] [address] [place], [place] [address] WBC (Bld) [#/Vol] 10.61 thou/cmm High 4.23-9.07 [facility] Comment on above: Performed By: #### C BC1 #### [facility] [address] [place], [place] [address] NM LUNG PERFUSION ONLYon NM LUNG PERFUSION [...] probability for pulmonary embolism is very low. Manager Front Office: HOLLY Transcribe Date/Time: Jan 24 2020 9:05P Dictated by : RENE ANDERSON MD This examination was interpreted and the report reviewed and electronically signed by: RENE ANDERSON MD on Jan 24 2020 9:57PM EST Normal [facility] PROGRESSon 01-24-2020 PROGRESS HNO ID: [id number] Author: Rosaura Ellis (Rt) Service: Nuclear Medicine Author Type: Risk Control Field Representative Type: Progress Notes Filed: 01/24/2020 9:35 PM [...] No IV SITE: Inpatient - refer to [facility] documentation POST EXAM PIV STATUS: Not applicable [...] safety can be found using this link: [email or web address] SIGNATURE: RT [place] PATIENT NAME: Velia Bagley DATE: January 24, 2020 TIME: 9:09 PM PAGER/CONTACT #: Normal [facility] Rapid, COVID 19on 01-24-2020 Rapid, COVID 19 Negative Normal Negative [facility] Comment on above: Result Comment: This test has been authorized by the FDA under an Emergency Use Authorization (EUA). Performed By: #### R COVD #### [place] [address] Troponin T, High Sens.on Troponin T, High Sens. 32 ng/L High 0-11 [facility] Comment on above: Result Comment: Mima [...] result. Performed By: #### B MP #### [place] [address] Troponin T, High Sens. 29 ng/L High 0-11 [facility] Comment on above: Result Comment: Mima [...] result. Performed By: #### B MP #### [place] [address] Urinalysis Routineon 020 Bacteria LM.HPF (Urine sed) [#/Area] NONE Normal None [facility] Comment on above: Performed By: #### U RIN2 #### [place] [address] Ep Cells Urine 0.1 /hpf Normal 0.0-5.0 [facility] [place] [facility] Comment on above: Performed By: #### U RIN2 #### [place] [address] Hyaline Cast 0.3 /lpf Normal 0.0-1.0 [facility] Comment on above: Performed By: #### U RIN2 #### [place] [address] RBC LM.HPF (Urine sed) [#/Area] 0.9 /[HPF] Normal 0.0-5.0 [facility] Comment on above: Performed By: #### U RIN2 #### [facility] [address] [place] [address] WBC LM.HPF (Urine sed) [#/Area] 88.5 /[HPF] High 0.0-5.0 [facility] Comment on above: Performed By: #### U RIN2 #### [facility] [address] [place] [address] Appearance (U) CLEAR Normal [facility] [place] [facility] Comment on above: Performed By: #### U RIN2 #### [facility] [address] [place] [address] Bilirubin (U) [Mass/Vol] Negative Normal Negative [facility] Comment on above: Performed By: #### U RIN2 #### [facility] [address] [place] [address] Color (U) DK YELLOW Normal [facility] Comment on above: Performed By: #### U RIN2 #### [place] [address] Glucose Ql (U) Negative Normal Negative [facility] [place] [facility] Comment on above: Performed By: #### U RIN2 #### [place] [address] Hemoglobin,Urine Negative Normal Negative [facility] Comment on above: Performed By: #### U RIN2 #### [facility] [address] [place] [address] Ketone Urine Negative Normal Negative [facility] Comment on above: Performed By: #### U RIN2 #### [facility] [address] [place] [address] Leukocytes Esterase MODERATE Abnormal Negative [facility] Comment on above: Performed By: #### U RIN2 #### [place] [address] Nitrites Urine Negative Normal Negative [facility] [place] [facility] Comment on above: Performed By: #### U RIN2 #### [facility] [address] [place] [address] pH (U) 7.0 [pH] Normal 5.0-8.0 [facility] Comment on above: Performed By: #### U RIN2 #### [facility] [address] [place], [place] [address] Protein (U) [Mass/Vol] Negative Normal Negative [facility] Comment on above: Performed By: #### U RIN2 #### [facility] [address] [place], [place] [address] Specific [place], Ur 1.016 Normal 1.005-1.030 [facility] Comment on above: Performed By: #### U RIN2 #### [facility] [address] [place], [place] [address] Urobilinogen,Ur 2.0 EU/dL Abnormal 0.2-1.0 [facility] Comment on above: Performed By: #### U RIN2 #### [facility] [address] [place], [place] [address] XR CHEST 1V FRONTALon 2019 XR CHEST [...] Other: None IMPRESSION: No acute radiographic abnormality. Manager Front Office: PSCB Transcribe Date/Time: Jan 24 2020 6:19P Dictated by : ALIX COLBY MD This examination was interpreted and the report reviewed and electronically signed by: ALIX COLBY MD on Jan 24 2020 6:20PM EST Normal [facility] CNPNon 01-23-2020 CNPN Telephone (AGPOB1) -------- VELIA BAGLEY ([id number]) 1960 M Date Time Provider Department 01/23/20 [facility], HIRAL REN AGPOB1 During your visit today, [...] Cervicalgia [M54.2] 04/14/2013 Myalgia and myositis, unspecified [[id number]] 04/14/2013 Iron deficiency anemia [D50.9] 06/10/2016 Weakness [R53.1] 06/24/2016 Lymphadenopathy [R59.1] 02/11/2018 More... Closed displaced fracture of right femoral neck*10/16/2019 Status post total hip replacement, right [Z96.6*01/16/2020 01/20/2020 Encounter Status:Closed by ONI TAMAYO CMA on 01/27/20 [facility] PROGRESSon 01-21-2020 PROGRESS HNO ID: [id number] Author: Jayant (Betty) MD Carola Service: Orthopaedic [...] Jayant Srivastava MD Resident, Orthopaedic Surgery Pager: [phone] 01/21/2020 6:45 AM [facility] ALLIED HEALTHon 01-20-2020 ALLIED HEALTH HNO ID: [id number] Author: Jo (Rn) Giovana Service: Nursing Author Type: Registered Nurse Type: Allied Health Filed: 01/20/2020 9:32 AM Note Text: ANCILLARY ORTHOPEDIC [employer] CONSULTANT PROGRESS NOTE SERVICE DATE: 01/20/2020 SERVICE TIME: 924 Spoke to patient in room, he is up in chair, doing well. SNF choices are 1-[facility], 2-[facility], CM aware. Patient will need insurance authorization. I will continue to follow. SIGNATURE: Jo Cruz RN PATIENT NAME: Velia Bagley DATE: January 20, 2020 TIME: 9:31 AM PAGER/CONTACT #: [phone] [facility] CASE MANAGEMon 01-20-2020 CASE MANAGEM HNO ID: [id number] Author: Caryl HarperRn) BULL Minor Service: Care Management Author Type: Registered Nurse Type: Care Mgt Progress Note Filed: 01/20/2020 4:10 PM Note Text: CARE MANAGEMENT PROGRESS NOTE SERVICE DATE: 01/20/2020 SERVICE TIME: 1603 LOS: 4 days [facility] accepted and per patient that is facility of choice. [facility] can accept under floor-snf program Needs covid [...] 20, 2020 TIME: 4:03 PM PAGER/CONTACT #: [phone] [facility] CASE MANAGEM HNO ID: [id number] Author: Kathleen Thomas Service: Care Management Author Type: ? Type: Care Mgt Progress Note Filed: 01/20/2020 12:34 PM Note Text: CARE MANAGEMENT PROGRESS NOTE SERVICE DATE: 01/20/2020 SERVICE TIME: 1045 LOS: 4 days IMM Follow Up Copy Given: Yes Copy given to:: Patient Method: In Person SIGNATURE: Kathleen Thomas PATIENT NAME: Velia Bagley DATE: January 20, 2020 TIME: 12:34 PM PAGER/CONTACT #: [facility] CASE MANAGEM HNO ID: [id number] Author: Caryl (Rn) BULL Minor Service: Care Management Author Type: Registered Nurse Type: Care Mgt Progress Note Filed: 01/20/2020 11:21 AM Note Text: CARE MANAGEMENT PROGRESS NOTE SERVICE DATE: 01/20/2020 SERVICE TIME: 1119 LOS: 4 days snf choices were 1. [facility], 2. [facility], 3. [facility] Will need precert SIGNATURE: Caryl Minor RN PATIENT NAME: Velia Bagley DATE: January 20, 2020 TIME: 11:19 AM PAGER/CONTACT #: [phone] [facility] PLAN OF CAREon 01-20-2020 PLAN OF CARE HNO ID: [id number] Author: Abraham Hanna (Pharmacist) Service: Pharmacy Author [...] (pharmacist)Abraham January 20, 2020 3:19 PM Ext: [phone] 01/20/2020 3:19 PM Medication List START taking [...] IR 5 mg immediate release tablet Normal [facility] PROGRESSon 01-20-2020 PROGRESS HNO ID: [id number] Author: Hiral Castaneda Service: Orthopaedic Surgery Author [...] new images SIGNATURE: Erich Olivera MD PAGER: [phone] DATE of SERVICE: 01/20/2020 TIME of SERVICE: 6:03 AM Normal [facility] Rapid, COVID 19on 01-20-2020 Rapid, COVID 19 Negative Normal Negative [facility] Comment on above: Result Comment: This test has been authorized by the FDA under an Emergency Use Authorization (EUA). Performed By: #### R COVD #### [address] [address] THERAPY NTon 01-20-2020 THERAPY NT HNO ID: [id number] Author: Saira Berry Service: Physical Therapy Author Type: Regional Agronomist Type: Therapy (PT/OT/Speech/Resp) Filed: 01/20/2020 3:37 PM Note Text: -------- Attestation signed by Rosemarie HarperPt) Matt at 01/20/2020 3:50 PM I reviewed and agree with the documentation corresponding to this therapy visit. SIGNATURE: Rosemarie Gutierrez PT DATE: January 20, 2020 TIME: 3:50 PM -------- Physical Therapy Treatment SERVICE DATE: 01/20/2020 SERVICE TIME: 1337 to 1405 ROOM: [id number] Recommended Discharge Disposition: Acute Rehab Justification For [...] Diagnosis: Reduced mobility-other Interventions Provided: Therapeutic Exercise (93103);Therapeutic Activity (86328);Gait Training (33513) Therapeutic Exercise (09234) Treatment Minutes: 13 1 unit Skilled Intervention(s): [...] breathe and maintain proper alignment. Therapeutic Activity (19739) Treatment Minutes: 5 0 units Skilled Intervention(s): [...] and call light for assistance. 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 SIGNATURE: Rosemarie Gutierrez, PT DATE: January 20, 2020 TIME: 12:04 PM -------- Physical Therapy Treatment SERVICE DATE: 01/20/2020 SERVICE TIME: 858 to 925 ROOM: [place] [address] Recommended Discharge Disposition: Acute Rehab Justification For [...] Diagnosis: Reduced mobility-other Interventions Provided: Therapeutic Exercise (05136);Therapeutic Activity (16405);Gait Training (79706) Therapeutic Exercise (68998) Treatment Minutes: 12 1 unit Skilled Intervention(s): [...] breathe and maintain proper alignment. Therapeutic Activity (07986) Treatment Minutes: 4 0 units Skilled Intervention(s): [...] pain management and for assistance. 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 Patient expressed that he was feeling much better than last time (two days ago). He expressed some difficulty for his daughter finding the right facility upon discharge but is hopeful that one will be found that meets their qualifications. Lens Mounter provided prayer at pt request. Pt indicated thanks for visit and prayer. To contact the Spiritual Care Department: Please call [phone]. SIGNATURE: Chaplain Georgi PATIENT NAME: Velia Bagley DATE: 2020 TIME: 5:15 PM PAGER/CONTACT #: [phone] [facility] CASE MANAGEMon 2020 CASE MANAGEM HNO ID: [id number] Author: Caryl (Rn) BULL Minor Service: Care Management Author Type: Registered Nurse Type: Care Mgt Progress Note Filed: 2020 12:07 PM Note Text: CARE MANAGEMENT PROGRESS NOTE SERVICE DATE: 2020 SERVICE TIME: 1115 LOS: 3 days Provided patient snf choice list for area codes [address] and [address] Per his request emailed the snf list to his daugher at [email or web address] SIGNATURE: Caryl Minor RN PATIENT NAME: Velia Bagley DATE: 2020 TIME: 12:05 PM PAGER/CONTACT #: [phone] [facility] PROGRESSon 2020 PROGRESS HNO ID: [id number] Author: Jaskaran Mcdonnell MD Service: Hospital Medicine Author Type: Physician Type: Progress Notes Filed: 2020 6:45 PM Note Text: No active medical issues currently Hospital medicine will sign off Normal [facility] PROGRESS HNO ID: [id number] Author: Sally De Leon Service: Orthopaedic Surgery [...] DATE: 01/19/20 TIME: 6:02 AM PAGER/CONTACT #: [phone] [facility] THERAPY NTon 2020 THERAPY NT HNO ID: [id number] Author: Willam (Marifer) Laurita Service: Physical Therapy Author Type: Regional Agronomist Type: Therapy (PT/OT/Speech/Resp) Filed: 2020 2:28 PM Note Text: -------- Attestation signed by Rosemarie Gutierrez at 2020 4:17 PM I reviewed and agree with the documentation corresponding to this therapy visit. SIGNATURE: Rosemarie Gutierrez PT DATE: 2020 TIME: 4:17 PM -------- Physical Therapy Treatment SERVICE DATE: 2020 SERVICE TIME: 1354 to 1418 ROOM: [id number] Recommended Discharge Disposition: Acute Rehab Justification For [...] Diagnosis: Reduced mobility-other Interventions Provided: Therapeutic Activity (54470);Gait Training (39660) Therapeutic Activity (36595) Treatment Minutes: 8 1 unit Skilled Intervention(s): [...] to mobility, recall of 3/3. 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 OBJECTIVE: CURRENT FUNCTIONAL STATUS: mobility performed during [...] Bagley DATE: 2020 TIME: 2:22 PM Normal [facility] THERAPY NT HNO ID: [id number] Author: Arielle Oswald/Fiorella Anne Service: Occupational Therapy Author Type: Occupational Therapist Type: Therapy (PT/OT/Speech/Resp) Filed: 2020 10:56 AM Note Text: Occupational Therapy Treatment SERVICE DATE: 2020 SERVICE TIME: 1022 to 1045 ROOM: [place] [address] Recommended Discharge Disposition: Acute Rehab Recommended Discharge [...] of daily living (ADL) Interventions Provided: Self Senior Living Management (58987) Self Senior Living Management (37936) Treatment Minutes: 23 2 units Skilled Intervention(s): [...] Environment Patient Lives With: Family(Son) Assistance Available: boom master Entry To Home: No Stairs Number Of Stairs To Bed/Bath: 0 Tub/Shower Type: tub shower combo Equipment Owned: Wheeled Walker;Shower Chair Prior Functional Level: Within Functional Limits Prior Functional Level Comments: 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 SIGNATURE: Rosemarie Gutierrez PT DATE: 2020 TIME: 11:45 AM -------- Physical Therapy Treatment SERVICE DATE: 2020 SERVICE TIME: 933 to 956 ROOM: [place] [address] Recommended Discharge Disposition: Acute Rehab Justification For [...] Diagnosis: Reduced mobility-other Interventions Provided: Therapeutic Exercise (09917) Therapeutic Exercise (72461) Treatment Minutes: 23 2 units Skilled Intervention(s): [...] Environment Patient Lives With: Family(Son) Assistance Available: boom master Entry To Home: No Stairs Number Of Stairs To Bed/Bath: 0 Tub/Shower Type: tub shower combo Equipment Owned: Wheeled Walker;Shower Chair Prior Functional Level: Within Functional Limits Prior Functional Level Comments: 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 [facility] has accepted patient, await insurance authorization. I will continue to follow. SIGNATURE: Jo Cruz RN PATIENT NAME: Velia Bagley DATE: January 18, 2020 TIME: 8:19 AM PAGER/CONTACT #: [phone] Normal [facility] Basic Metabolic Panelon 01-02 Anion gap [Moles/Vol] 8 mmol/L Low 9-18 [facility] Comment on above: Performed By: #### B MP #### [address] [address] Calcium [Mass/Vol] 8.0 mg/dL Low 8.5-10.2 [facility] Comment on above: Performed By: #### B MP #### [address] [address] Chloride [Moles/Vol] 107 mmol/L High 97-105 [facility] Comment on above: Performed By: #### B MP #### [facility] [address] [place], [place] [address] CO2 Blood 20 mmol/L Low 22-30 [facility] Comment on above: Performed By: #### B MP #### [facility] [address] [place], [place] [address] Creatinine [Mass/Vol] 0.87 mg/dL Normal 0.73-1.22 [facility] Comment on above: Performed By: #### B MP #### [facility] [address] [place], [place] [address] Glucose [Mass/Vol] 98 mg/dL Normal 74-99 [facility] Comment on above: Result Comment: The [place] [employer] (ADA) provides guidance for cutoff [...] Standards of Medical Care in Diabetes 2016; [place] [employer]. Diabetes Care. 2016;39(Suppl 1). Performed By: #### B MP #### [facility] [address] [place], [place] [address] Potassium [Moles/Vol] 4.2 mmol/L Normal 3.7-5.1 [facility] Comment on above: Performed By: #### B MP #### [facility] [address] [place], [place] [address] Sodium [Moles/Vol] 135 mmol/L Low 136-144 [facility] Comment on above: Performed By: #### B MP #### [facility] [address] [place], [place] [address] Urea nitrogen [Mass/Vol] 14 mg/dL Normal 9-24 [facility] Comment on above: Performed By: #### B MP #### [place] [address] CASE MANAGEMon 01-18-2020 CASE MANAGEM HNO ID: [id number] Author: Caryl Batres) BULL Minor Service: Care [...] be done within 3 days by calling [phone] Ref [id number] Discussed with patient and provided snf. Will follow up tomorrow morning for choices SIGNATURE: Caryl Minor RN PATIENT NAME: Velia Bagley DATE: January 18, 2020 TIME: 4:58 PM PAGER/CONTACT #: [phone] Normal [facility] CASE MGT INIT ASSES 2019 CASE MGT INIT [facility] HNO ID: [id number] Author: Cortney Vasquez (Sw) Service: ? Author Type: Brass Pickler Type: Care Mgt Initial Assessment Filed: 01/18/2020 4:31 PM Note Text: CARE MANAGEMENT: ASSESSMENT AND DISCHARGE PLAN SERVICE DATE: January 18, 2020 SERVICE TIME: 4:30 PM PRIMARY CARE PHYSICIAN: Rachel aRyo MD ADMISSION STATUS: Inpatient Needs Prior to Discharge: Facility or Agency Choices;Insurance Authorization;OT/PT Evaluation [facility] Patient/Well Puller Head Stated Goals: To have reduction in pain;To have reduction in symptoms Health Insurance: [employer] [employer] Health Issues Impacting Discharge Plan: None Last Discharge Date: 10/20/19 Is this Within the Past 30 days? Last discharge within 30 days: No Advance Directive: Current Advance Directive: None Nurse Instructor Attempted to Assist with AD Completion: Yes [...] Completely I feel financially burdened by my [id number] expenses for my prescription medication:: 0 - Disagree Completely Risk Score: 0 Patient is categorized as: Low risk < 2 Are you interested in bedside delivery of your medications? No Is Patient Psychosocially Complex?: No ASSESSMENT AND PLAN: Medical Needs: Psychosocial Needs: Psychosocial Needs: None FREEDOM OF CHOICE EXPLAINED: POTENTIAL TRANSITION PLANS Rehab Facility Reviewed Epic. Patient is IND+PCP+RX. Patient will discharge to [facility] per his request. Will continue to follow for further discharge planning. SIGNATURE: KRISTINA Snider PATIENT NAME: Velia Bagley DATE: January 18, 2020 TIME: 4:30 PM PAGER/CONTACT #: [phone] Normal [facility] Hemogram/Diffon 01-18-2020 Abs Immature Grans 0.07 thou/cmm High 0.00-0.05 [facility] Comment on above: Performed By: #### R COVD #### [place] [address] Abs Neut (ANC) 6.30 thou/cmm High 1.78-5.38 [facility] Comment on above: Performed By: #### R COVD #### [facility] [address] [place] [address] Abs. Baso 0.02 thou/cmm Normal 0.01-0.08 [facility] Comment on above: Performed By: #### R COVD #### [facility] [address] [place] [address] Abs. [place] 0.87 thou/cmm High 0.30-0.82 [facility] Comment on above: Performed By: #### R COVD #### [place] [address] Basophils/100 WBC (Bld) 0.2 % Normal [facility] Comment on above: Performed By: #### R COVD #### [place] [address] Eosinophils (Bld) [#/Vol] 0.00 thou/cmm Low 0.04-0.54 [facility] Comment on above: Performed By: #### R COVD #### [place] [address] Eosinophils/100 WBC (Bld) 0.0 % Normal [facility] Comment on above: Performed By: #### R COVD #### [place] [address] Erythrocyte distribution width (RBC) [Ratio] 15.9 % High 11.6-14.4 [facility] Comment on above: Performed By: #### R COVD #### [facility] [address] [place] [address] Hematocrit (Bld) [Volume fraction] 33.3 % Low 40.1-51.0 [facility] Comment on above: Performed By: #### R COVD #### [facility] [address] [place] [address] Hemoglobin (Bld) [Mass/Vol] 10.9 g/dL Low 13.7-17.5 [facility] Comment on above: Performed By: #### R COVD #### [facility] [address] [place] [address] Immature Grans 0.80 % Normal [facility] Comment on above: Performed By: #### R COVD #### [facility] [address] [place] [address] Lymphocytes (Bld) [#/Vol] 1.28 thou/cmm Normal 0.84-2.85 [facility] Comment on above: Performed By: #### R COVD #### [facility] [address] [place] [address] Lymphocytes/100 WBC (Bld) 15.0 % Normal [facility] Comment on above: Performed By: #### R COVD #### [facility] [address] [place] [address] MCH (RBC) [Entitic mass] 30.2 pg Normal 25.7-32.2 [facility] Comment on above: Performed By: #### R COVD #### [facility] [address] [place] [address] MCHC (RBC) [Mass/Vol] 32.7 % Normal 32.3-36.5 [facility] Comment on above: Performed By: #### R COVD #### [facility] [address] [place] [address] MCV (RBC) [Entitic vol] 92.2 fL Normal 83.2-95.6 [facility] Comment on above: Performed By: #### R COVD #### [facility] [address] [place] [address] Monocytes/100 WBC (Bld) 10.2 % Normal [facility] Comment on above: Performed By: #### R COVD #### [facility] [address] [place] [address] Platelet mean volume (Bld) [Entitic vol] 9.2 fL Normal 8.7-12.0 [facility] Comment on above: Performed By: #### R COVD #### [facility] [address] [place] [address] Platelets (Bld) [#/Vol] 173 thou/cmm Normal 141-365 [facility] Comment on above: Performed By: #### R COVD #### [facility] [address] [place] [address] RBC (Bld) [#/Vol] 3.61 mil/cmm Low 4.63-6.08 [facility] Comment on above: Performed By: #### R COVD #### [facility] [address] [place] [address] RDW SD 53.6 fl High 36.1-45.8 [facility] Comment on above: Performed By: #### R COVD #### [facility] [address] [place] [address] Seg Neutrophil 73.8 % Normal [facility] Comment on above: Performed By: #### R COVD #### [facility] [address] [place] [address] WBC (Bld) [#/Vol] 8.53 thou/cmm Normal 4.23-9.07 [facility] Comment on above: Performed By: #### R COVD #### [facility] [address] [place] [address] MDRD GFRon 01-18-2020 GFR/1.73 sq M predicted among non-blacks MDRD (S/P/Bld) [Vol rate/Area] mL/min/{1.73_m2} Normal >60mL/min/1. 73m2 [facility] Comment on above: Result Comment: If t he patient is , multiply the result by 1.210. Performed By: #### B MP #### [facility] [address] [place] [address] PROGRESSon 01-18-2020 PROGRESS HNO ID: [id number] Author: Hiral Castaneda Service: Orthopaedic Surgery Author [...] DATE: 01/18/20 TIME: 6:02 AM PAGER/CONTACT #: [phone] Normal [facility] THERAPY NTon 01-18-2020 THERAPY NT HNO ID: [id number] Author: Taylor Pennington OT Service: Occupational Therapy Author Type: Occupational Therapist Type: Therapy (PT/OT/Speech/Resp) Filed: 01/18/2020 3:55 PM Note Text: OCCUPATIONAL THERAPY MISSED VISIT SERVICE DATE: 01/18/2020 SERVICE TIME: 1510 to 1511 ROOM: [place] [address] Attempted Treatment. Patient not seen due to Sleeping. Unable to wake patient to participate in therapy; will re-attempt. SIGNATURE: Taylor Pennington OT/Matt PATIENT NAME: Velia Bagley DATE: January 18, 2020 TIME: 3:54 PM Normal [facility] THERAPY NT HNO ID: [id number] Author: Willam Kruse) Laurita Service: Physical Therapy Author Type: Regional Agronomist Type: Therapy (PT/OT/Speech/Resp) Filed: 01/18/2020 2:15 PM Note Text: -------- Attestation signed by Rosemarie Gutierrez at 01/18/2020 4:00 PM I reviewed and agree with the documentation corresponding to this therapy visit. SIGNATURE: Rosemarie Gutierrez PT DATE: January 18, 2020 TIME: 4:00 PM -------- Physical Therapy Treatment SERVICE DATE: 01/18/2020 SERVICE TIME: 1333 to 1400 ROOM: [place] [address] Recommended Discharge Disposition: Acute Rehab Justification For [...] Diagnosis: Reduced mobility-other Interventions Provided: Therapeutic Exercise (93606);Therapeutic Activity (05453);Gait Training (12794) Therapeutic Exercise (10870) Treatment Minutes: 11 1 unit Skilled Intervention(s): [...] precautions--patient may have been reading from dry [employer] board,further review needed for proper teach back. Patient set up with ice to surgical hip and elevated lower extremity as needed. 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 Rosemarie Gutierrez PT -------- Physical Therapy Treatment SERVICE DATE: 01/18/2020 SERVICE TIME: 838 to 909 ROOM: [id number] Recommended Discharge Disposition: Acute Rehab Justification For [...] Diagnosis: Reduced mobility-other Interventions Provided: Therapeutic Exercise (01372);Therapeutic Activity (95971);Gait Training (18985) Therapeutic Exercise (69832) Treatment Minutes: 14 1 unit Skilled Intervention(s): [...] elevated lower extremity as needed. Therapeutic Activity (89889) Treatment Minutes: 7 0 units Skilled Intervention(s): [...] needed for proper teach back. 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 Patient expressed significant discomfort, I'm not doing well at all. Lens Mounter provided prayer at pt's request. Lens Mounter notified staff of pt's discomfort. To contact the Spiritual Care Department: Please call [phone]. SIGNATURE: Chaplain Georgi PATIENT NAME: Velia Bagley DATE: January 17, 2020 TIME: 4:31 PM PAGER/CONTACT #: [phone] Normal [facility] ALLIED HEALTH HNO ID: [id number] Author: Jo (Rn) Giovana Service: Nursing Author Type: Registered Nurse Type: Allied Health Filed: 01/17/2020 8:37 AM Note Text: ANCILLARY ORTHOPEDIC [employer] CONSULTANT PROGRESS NOTE SERVICE DATE: 01/17/2020 SERVICE TIME: 0830 Spoke to patient at bedside, he is doing ok, pain managed. He would like to be able to get into [facility], pending PT eval. If unable to go to [facility], patient will plan to go home with son, has all DME's. Will wait on PT eval and continue to follow. SIGNATURE: Jo Cruz RN PATIENT NAME: Velia Bagley DATE: January 17, 2020 TIME: 8:36 AM PAGER/CONTACT #: [phone] Normal [facility] Basic Metabolic Panelon 01-02 Anion gap [Moles/Vol] 8 mmol/L Low 9-18 [facility] Comment on above: Performed By: #### B MP #### [facility] [address] [place], [place] [address] Calcium [Mass/Vol] 8.3 mg/dL Low 8.5-10.2 [facility] Comment on above: Performed By: #### B MP #### [facility] [address] [place], [place] [address] Chloride [Moles/Vol] 109 mmol/L High 97-105 [facility] Comment on above: Performed By: #### B MP #### [facility] [address] [place], [place] [address] CO2 Blood 22 mmol/L Normal 22-30 [facility] Comment on above: Performed By: #### B MP #### [facility] [address] [place], [place] [address] Creatinine [Mass/Vol] 1.01 mg/dL Normal 0.73-1.22 [facility] Comment on above: Performed By: #### B MP #### [facility] [address] [place], [place] [address] Glucose [Mass/Vol] 135 mg/dL High 74-99 [facility] Comment on above: Result Comment: The [place] [employer] (ADA) provides guidance for cutoff [...] Standards of Medical Care in Diabetes 2016; [place] [employer]. Diabetes Care. 2016;39(Suppl 1). Performed By: #### B MP #### [facility] [address] [place], [place] [address] Potassium [Moles/Vol] 4.9 mmol/L Normal 3.7-5.1 [facility] Comment on above: Performed By: #### B MP #### [facility] [address] [place], [place] [address] Sodium [Moles/Vol] 139 mmol/L Normal 136-144 [facility] Comment on above: Performed By: #### B MP #### [facility] [address] [place], [place] [address] Urea nitrogen [Mass/Vol] 17 mg/dL Normal 9-24 [facility] Comment on above: Performed By: #### B MP #### [facility] [address] [place], [place] [address] Glucose Meteron 09-15-2020 Glucose [Mass/Vol] 147 mg/dL High 70-99 [facility] Comment on above: Result Comment: BULL JUAREZ Performed By: #### U RIN2 #### [facility] [address] [place] [address] Hemogramon 01-17-2020 Erythrocyte distribution width (RBC) [Ratio] 15.4 % High 11.6-14.4 [facility] Comment on above: Performed By: #### R COVD #### [facility] [address] [place] [address] Hematocrit (Bld) [Volume fraction] 33.8 % Low 40.1-51.0 [facility] Comment on above: Performed By: #### R COVD #### [facility] [address] [place] [address] Hemoglobin (Bld) [Mass/Vol] 10.8 g/dL Low 13.7-17.5 [facility] Comment on above: Performed By: #### R COVD #### [facility] [address] [place] [address] MCH (RBC) [Entitic mass] 29.8 pg Normal 25.7-32.2 [facility] Comment on above: Performed By: #### R COVD #### [place] [address] MCHC (RBC) [Mass/Vol] 32.0 % Low 32.3-36.5 [facility] Comment on above: Performed By: #### R COVD #### [facility] [address] [place] [address] MCV (RBC) [Entitic vol] 93.1 fL Normal 83.2-95.6 [facility] Comment on above: Performed By: #### R COVD #### [facility] [address] [place] [address] Platelet mean volume (Bld) [Entitic vol] 9.1 fL Normal 8.7-12.0 [facility] Comment on above: Performed By: #### R COVD #### [place] [address] Platelets (Bld) [#/Vol] 186 thou/cmm Normal 141-365 [facility] Comment on above: Performed By: #### R COVD #### [facility] [address] [place] [id number] RBC (Bld) [#/Vol] 3.63 mil/cmm Low 4.63-6.08 [facility] Comment on above: Performed By: #### R COVD #### [facility] [address] [place] [address] RDW SD 51.8 fl High 36.1-45.8 [facility] Comment on above: Performed By: #### R COVD #### [facility] [address] [place] [address] WBC (Bld) [#/Vol] 9.08 thou/cmm High 4.23-9.07 [facility] Comment on above: Performed By: #### R COVD #### [facility] [address] [place] [id number] NURSING PROGon 01-17-2020 NURSING PROG HNO ID: [id number] Author: Katlyn (Rn) BULL Saucedo Service: Nursing Author Type: Registered Nurse Type: Nursing Progress Note Filed: 01/17/2020 3:25 PM Note Text: Nursing Progress Note Patient Name: Velia Bagley Patient Location: [place] [id number] Pt stated to tech I think I'm having a seizure tech immediately notified RN. Vitals taken. Pt alert and oriented and conversant at this time. 1440 - informatica mdm architect priscilla at bedside with pt, sound service [...] clonidine 0.1 mg at this time. Dr. underwood states to hold clonidine and okay to give gabapentin. Will continue to monitor. This note was completed by: Katlyn Saucedo RN [facility] PROGRESSon 01-17-2020 PROGRESS HNO ID: [id number] Author: Lauren Underwood Service: Hospital Medicine Author [...] to have a seizure. Nurse and ortho TIN POT OPERATOR in room and nurse is correcting meds [...] 17, 2020 TIME: 3:09 PM PAGER: Penny [facility] PROGRESS HNO ID: [id number] Author: Hiral Castaneda Service: Orthopaedic Surgery Author [...] DATE: 01/17/20 TIME: 6:02 AM PAGER/CONTACT #: [phone] [facility] THERAPY NTon 01-17-2020 THERAPY NT HNO ID: [id number] Author: Willam Kruse) Laurita Service: Physical Therapy Author Type: Regional Agronomist Type: Therapy (PT/OT/Speech/Resp) Filed: 01/17/2020 2:48 PM Note Text: -------- Attestation signed by Niall Willson PT at 01/17/2020 4:46 PM I reviewed and agree with the documentation corresponding to this therapy visit. SIGNATURE: Niall Willson PT DATE: January 17, 2020 TIME: 4:46 PM -------- PHYSICAL THERAPY MISSED VISIT SERVICE DATE: 01/17/2020 SERVICE TIME: 1447 to 1447 ROOM: [place] [address] Attempted Treatment. Patient not seen due to Another service at bedside. Nursing staff if room assessing patient--possible seizure--hold session this date--will continue to follow patient when medically stable. SIGNATURE: Willam Shay PTA PATIENT NAME: Velia Bagley DATE: January 17, 2020 TIME: 2:47 PM Additional personnel present during visit: Bette Gutierrez [facility] THERAPY NT HNO ID: [id number] Author: Taylor Pennington OT Service: Occupational Therapy Author Type: Occupational Therapist Type: Therapy (PT/OT/Speech/Resp) Filed: 01/17/2020 2:56 PM Note Text: Occupational Therapy Evaluation SERVICE DATE: 01/17/2020 SERVICE TIME: 1408 to 1435 ROOM: [place] [address] Recommended Discharge Disposition: Acute Rehab Recommended Discharge [...] daily living (ADL) Interventions Provided: Evaluation;Therapeutic Activity (66086) $ Evaluation-Moderate (93994) Billed Units: 1 unit OT Evaluation Moderate [...] performance: R RONALD, Cerivacallgia, weakness Therapeutic Activity (48373) Treatment Minutes: 10 1 unit Skilled Intervention(s): [...] Environment Patient Lives With: Family(Son) Assistance Available: boom master Entry To Home: No Stairs Number Of Stairs To Bed/Bath: 0 Tub/Shower Type: tub shower combo Equipment Owned: Wheeled Walker;Shower Chair Prior Functional Level: Within Functional Limits Prior Functional Level Comments: Pt independent PANTS CLOSER OBJECTIVE: Cognition/Communication Deficits Responsiveness: Alert Follows Commands: [...] January 17, 2020 TIME: 2:45 PM Normal [facility] THERAPY NT HNO ID: [id number] Author: Niall (PtVibha Willson PT Service: Physical Therapy Author Type: Physical Therapist Type: Therapy (PT/OT/Speech/Resp) Filed: 01/17/2020 10:14 AM Note Text: Physical Therapy Evaluation SERVICE DATE: 01/17/2020 SERVICE TIME: 908 to 947 ROOM: [place] [address] Recommended Discharge Disposition: Acute Rehab Justification For [...] the social factors complicating the discharge of parts counter representative assist available. This patient is below baseline [...] Diagnosis: Reduced mobility-other Interventions Provided: Evaluation;Therapeutic Activity (66589);Gait Training (74432) $ Evaluation-Moderate (17380) Billed Units: 1 unit History and examination of body systems see assessment section above. This patient?s clinical presentation is evolving. The patient required a moderate complexity evaluation. Therapeutic Activity (00777) Treatment Minutes: 15 1 unit Skilled Intervention(s): [...] home, educated on difference between rehab and jail Gait Training (96667) Treatment Minutes: 9 1 unit Skilled Intervention(s): [...] appeared to buckle, though he caught himself jail down. Assisted to lower safely with gait [...] Environment Patient Lives With: Family(son) Assistance Available: boom master(son works) Entry To Home: No Stairs Number [...] January 17, 2020 TIME: 10:08 AM Normal [facility] Urinalysis, reflexon 020 Appearance (U) CLEAR Normal [facility] Comment on above: Performed By: #### R COVD #### [place] [address] Bilirubin (U) [Mass/Vol] Negative Normal Negative [facility] Comment on above: Performed By: #### R COVD #### [place] [address] Color (U) YELLOW Normal [facility] Comment on above: Performed By: #### R COVD #### [place] [address] Glucose Ql (U) Negative Normal Negative [facility] Comment on above: Performed By: #### R COVD #### [facility] [address] [place] [address] Hemoglobin,Urine MODERATE Abnormal Negative [facility] Comment on above: Performed By: #### R COVD #### [facility] [address] [place] [address] Ketone Urine Negative Normal Negative [facility] Comment on above: Performed By: #### R COVD #### [facility] [address] [place] [address] Leukocyte esterase Test strip Ql (U) TRACE Abnormal Negative [facility] Comment on above: Performed By: #### R COVD #### [facility] [address] [place] [address] Nitrite reflex Negative Normal Negative [facility] Comment on above: Performed By: #### R COVD #### [place] [address] pH (U) 6.5 [pH] Normal 5.0-8.0 [facility] Comment on above: Performed By: #### R COVD #### [place] [address] Protein (U) [Mass/Vol] Negative Normal Negative [facility] Comment on above: Performed By: #### R COVD #### [place] [address] Reflex Comment see below Normal [facility] Comment on above: Result Comment: Refl ex to culture is not indicated based on established laboratory criteria. Performed By: #### R COVD #### [facility] [address] [place] [address] Specific [place], Ur 1.012 Normal 1.005-1.030 [facility] Comment on above: Performed By: #### R COVD #### [place] [address] Urobilinogen,Ur 1.0 EU/dL Normal 0.2-1.0 [facility] Comment on above: Performed By: #### R COVD #### [place] [address] Bacteria LM.HPF (Urine sed) [#/Area] NONE Normal None [facility] Comment on above: Performed By: #### R COVD #### [facility] [address] [place], [place] [address] Ep Cells Urine 0.8 /hpf Normal 0.0-5.0 [facility] Comment on above: Performed By: #### R COVD #### [facility] [address] [place] [address] Hyaline Cast 0.3 /lpf Normal 0.0-1.0 [facility] Comment on above: Performed By: #### R COVD #### [facility] [address] [place], [place] [address] RBC LM.HPF (Urine sed) [#/Area] 15.4 /[HPF] High 0.0-5.0 [facility] Comment on above: Performed By: #### R COVD #### [facility] [address] [place] [address] WBC, reflex 1.70 /hpf Normal 0.00-5.00 [facility] Comment on above: Performed By: #### R COVD #### [facility] [address] [place] [address] ALLIED HEALTHon 01-16-2020 ALLIED HEALTH HNO ID: [id number] Author: Jessica Morel (Chaplain) Service: Spiritual Care Author Type: Lens Mounter Type: Allied Health Filed: 01/16/2020 11:16 AM Note Text: SPIRITUAL CARE PROGRESS NOTE SERVICE DATE: 01/16/2020 SERVICE TIME: 15 paged; pt requests presurgical prayers. Lens Mounter provided spiritual care and prayers for pt and pt son. To contact the Spiritual Care Department: Please call [phone]. SIGNATURE: Chaplain Georgi PATIENT NAME: Velia Bagley DATE: January 16, 2020 TIME: 11:15 AM PAGER/CONTACT #: [phone] Normal [facility] ANES Nella 01-16-2020 ANES POST HNO ID: [id number] Author: Pooja Leblanc Service: Anesthesiology Author Type: [...] 16, 2020 TIME: 4:36 PM PAGER/CONTACT #: [phone] [facility] ANES PREOPon 01-16-2020 ANES PREOP HNO ID: [id number] Author: Pooja Leblanc Service: Anesthesiology Author Type: [...] Osteoarthritis - Severe persistent asthma Dr Sarmiento patient monitor - TIA (transient ischemic attack) 2016 2017 [...] Heart Failure Father 72 of CHF. 2 [place] before that - Parkinson?s Disease Father 68 [...] Dye [Iodine] Anaphylaxis - Penicillins Rash - Gos[place] Oil Unknown - Propranolol Other: See Comments [...] January 16, 2020 TIME: 9:29 AM CSN: [id number] Normal [facility] CONSULTon 01-16-2020 CONSULT HNO ID: [id number] Author: Lauren Underwood Service: Hospital Medicine Author [...] Osteoarthritis - Severe persistent asthma Dr Sarmiento patient monitor - TIA (transient ischemic attack) 2016 2017 [...] Heart Failure Father 72 of CHF. 2 [place] before that - Parkinson?s Disease Father 68 [...] Dye [Iodine] Anaphylaxis - Penicillins Rash - [place] Oil Unknown - Propranolol Other: See Comments [...] 1333 -- 01/16/20 1330 pneumatic compression stockings (wa,oh) VTE Prophylaxis: SIGNATURE: Lauren Underwood DO PATIENT NAME: Velia Bagley DATE: January 16, 2020 TIME: 8:04 PM PAGER/CONTACT #: Penny [facility] OPERATIVE NOon 01-16-2020 OPERATIVE NO HNO ID: [id number] Author: Hiral Castaneda Service: Orthopaedic Surgery Author Type: Physician Type: Operative Report Filed: 01/16/2020 3:30 PM Note Text: OPERATIVE REPORT TOTAL HIP ARTHROPLASTY LOG ID: [id number] Surgery/Procedure Date: 01/16/2020 Incision/Procedure Start Time: 11:50 AM Incision Close/Procedure End Time: 1:39 PM Surgeon(s)/Proceduralist (s) and Small Animal Veterinarian(s): Surgeon(s) and Role: * Hiral Castaneda - Primary * Sally De Leon - Resident - Assisting Rehab Therapy Manager: Melissa Keenan SA Procedure(s): Procedure(s) (LRB): ARTHROPLASTY [...] cutter was then used followed by a kiln hand to open the canal. We then proceeded with conical reaming until we had good cortical contact at 14.5 mm. We then broached proximally with the SOLOMON system and we seated the size 14 broach. Trial reduction was performed with a high offset neck standard head. We had a very stable range of motion and clinical mosque of his leg length. Intraoperative radiographs were [...] capsule was then closed with #1 Ethibond ylmibs-gz-brlvz sutures. Piriformis tendon and obturator internus tendons [...] Implant Name Type Inv. Item Serial No. Foreign Exchange Position Clerk Lot No. LRB No. Used Action HEAD G7 36MM BIOLOX DELTA FEMORAL HIP - [id number] Joint - Hip HEAD G7 36MM BIOLOX DELTA FEMORAL HIP [employer] [id number] Right 1 Implanted BIOLOX IMP HIP FEM HD CERAM [id number] Implant [employer] [id number] Right 1 Implanted 14mm High Offset Taper 175mm Broached 1 Piece Revision Sterile Implant [id number] Right 1 Implanted LINER G7 36MM E E1 ACETABULAR HIGH WALL HIP - [id number] Joint - Hip LINER G7 36MM E E1 ACETABULAR HIGH WALL HIP [employer] [id number] Right 1 Implanted G7 52mm E OFFSET HEMISPHERE OSSEOTI ACETABULAR 3 HOLE LIMIT HIP Implant [employer] [id number] Right 1 Implanted Bearing Surface: Ceramic on Poly Fixation: Cementless Drains: None Complications: None, patient tolerated procedure well. Participation in Procedure: I/primary surgeon/proceduralist performed the procedure with assistance. SIGNATURE: Hiral Castaneda MD PATIENT NAME: Velia Bagley DATE: January 16, 2020 TIME: 3:14 PM PAGER/CONTACT #: Penny [facility] PLAN OF CAREon 01-16-2020 PLAN OF CARE HNO ID: [id number] Author: Leonidas Mercado (Pharmacist) Service: Pharmacy Author Type: Pharmacist Type: Plan of Care Filed: 01/16/2020 9:14 PM Note Text: MEDICATION HISTORY AND MEDICATION RECONCILIATION Patient Name:Kathe Bagley : 1960 Source of history:Patient: Reliability of source: patient drowsy; imperfect source, Pharmacy records: [facility] Medication Nonadherence Identified: No barriers noted The above information represents the best possible medication history: Yes Reconciliation completed? Yes All PANTS CLOSER medications addressed by LIP Additional comments: ? Spoke with patient, briefly, and reviewed dispensing data of [facility] Pharmacy ? Patient states he receives all prescription medications from [facility] pharmacy ? Spoke with pharmacist at [facility] ? Reviewed patient supplied medication list, which was a copy of an [place] AVS dated 01-02-20 ? Patient is very drowsy, unable to recall most of his meds, refers me to [facility] for current and accurate med history [...] bedtime Messaged Dr. Castaneda about these findings [id number] Medication List Adjustments: Medication Regimen Changes: Primidone [...] Dye [Iodine] Anaphylaxis - Penicillins Rash - Gos[place] Oil Unknown - Propranolol Other: See Comments Severe low bp and kidneys shutting down. - Sulfa (Sulfonamide * Rash, Itching - Valium [Diazepam] Other: See Comments Depression Preferred Pharmacy: [facility] . Current PANTS CLOSER Medications: Prior to Admission medications as of [...] PHARMACIST January 16, 2020 7:19 PM Normal [facility] PT EDon 01-16-2020 PT ED HNO ID: [id number] Author: Yesi (Rn) BULL Flower Service: Nursing [...] RN In Department: [place] SURGERY OR Normal [facility] Surgical Tissue Examon 01-15 Surgical Tissue Exam Test performed at [place] [address] NAME: VELIA BAGLEY REQUESTING: HIRAL CASTANEDA M.D. [...] scant amount of cabrera rubbery tissue attached. Well Puller Head sections are submitted as follows: A1 - rubbery tissue. A2 - bone after decalcification. JIE/ade ZABALA M.D., PATHOLOGIST (Electronic signature on file) Signed out: 01/20/2020 08:47 PRINTED: 2020 Page 1 of 1 [facility] Comment on above: Performed By: #### U RIN2 #### [place] [address] THERAPY NTon 01-16-2020 THERAPY NT HNO ID: [id number] Author: Rosemarie (Pt) Matt Service: Physical Therapy Author Type: Physical Therapist Type: Therapy (PT/OT/Speech/Resp) Filed: 01/16/2020 4:13 PM Note Text: PHYSICAL THERAPY MISSED VISIT SERVICE DATE: 01/16/2020 SERVICE TIME: 1611 to 1611 ROOM: [facility] (01) Attempted Evaluation. Patient not seen due to (patient was too groggy still from surgery). He was unable to keep his eyes open, nor could he answer questions appropriately. SIGNATURE: Rosemarie Gutierrez PT PATIENT NAME: Velia Bagley DATE: January 16, 2020 TIME: 4:11 PM [facility] XR FEMUR DISTAL 2V AP/LAT RT on [...] arthroplasty without acute fracture or hardware complication. Manager Front Office: [place] Transcribe Date/Time: Jan 16 2020 3:35P Dictated by : RICH BORJAS MD This examination was interpreted and the report reviewed and electronically signed by: RICH BORJAS MD on Jan 16 2020 3:38PM EST Normal [facility] XR HIP 1V RTon 01-16-2020 XR [...] IMPRESSION: 1. Intraoperative images as described above. Manager Front Office: [facility] Transcribe Date/Time: Jan 16 2020 2:46P Dictated by : MILDRED LEOS MD This examination was interpreted and the report reviewed and electronically signed by: MILDRED LEOS MD on Jan 16 2020 2:49PM EST Normal [facility] XR PELVIS 1V APon 01-16-2020 XR [...] arthroplasty without acute fracture or hardware complication. [facility] Transcribe Date/Time: Jan 16 2020 3:35P Dictated by : RICH BORJAS MD This examination was interpreted and the report reviewed and electronically signed by: RICH BORJAS MD on Jan 16 2020 3:38PM EST Normal [facility] CNOVon 01-10-2020 CNOV Office Visit (AGPOB1 ) -------- VELIA BAGLEY ([id number]) 1960 M Date Time Provider Department 01/10/20 [...] Osteoarthritis - Severe persistent asthma Dr Sarmiento patient monitor - TIA (transient ischemic attack) 2016 2017 [...] Heart Failure Father 72 of CHF. 2 [place] before that - Parkinson?s Disease Father 68 [...] - Iodine Anaphylaxis - Penicillins Rash - Gos[place] Oil Unknown - Propranolol Other: See Comments [...] patient was offered a surgery/procedure at a [facility]. The surgeon/proceduralist and patient have discussed in [...] the consent form. Referring Provider: RACHEL RAYO [[id number]] Allergies As of Date: 01/10/2020 Noted Allergy [...] subsequent encounter [S72.001K] Order(s):XR PELVIS 1V AP [[id number]] Order #: [id number] Prescriptions as of 01/10/2020 Sig: AIMOVIG AUTOINJECTOR 140 MG/M* VENLAFAXINE ER 75 MG CAPSULE,* Take 75 mg by mouth once lamont* LEVOCETIRIZINE 5 MG TABLET Take 5 mg by mouth. TIOTROPIUM BROMIDE 18 MCG CAP* Inhale 18 mcg as instructed o* LEVALBUTEROL 1.25 MG/3 ML CYALA* Use 1 Ampule via nebulizer ev* CALCITONIN [...] Cervicalgia [M54.2] 04/14/2013 Myalgia and myositis, unspecified [[id number]] 04/14/2013 Iron deficiency anemia [D50.9] 06/10/2016 Weakness [R53.1] 06/24/2016 Lymphadenopathy [R59.1] 02/11/2018 More... Closed displaced fracture of right femoral neck*10/16/2019 Disposition: Return in about 22 days (around 02/01/2020). Follow-up and Disposition History Recorded Encounter Status:Closed by HIRAL CASTANEDA MD on 01/11/20 Normal [facility] PROGRESSon 01-10-2020 PROGRESS HNO ID: [id number] Author: Hiral Castaneda Service: ? Author Type: [...] Osteoarthritis - Severe persistent asthma Dr Sarmiento patient monitor - TIA (transient ischemic attack) 2016 2017 [...] Heart Failure Father 72 of CHF. 2 [place] before that - Parkinson?s Disease Father 68 [...] - Iodine Anaphylaxis - Penicillins Rash - Gos[place] Oil Unknown - Propranolol Other: See Comments [...] patient was offered a surgery/procedure at a [facility] facility. The surgeon/proceduralist and patient have discussed [...] as indicated on the consent form. Normal [facility] CNCOon 01-05-2020 CNCO Letter Text Normal [facility] CNPFlora 01-05-2020 CNPN Telephone (AGPOB1) -------- VELIA BAGLEY ([id number]) 1960 M Date Time Provider Department 01/05/20 [...] Cervicalgia [M54.2] 04/14/2013 Myalgia and myositis, unspecified [[id number]] 04/14/2013 Iron deficiency anemia [D50.9] 06/10/2016 Weakness [R53.1] 06/24/2016 Lymphadenopathy [R59.1] 02/11/2018 More... Closed displaced fracture of right femoral neck*10/16/2019 Encounter Status:Closed by ONI TAMAYO CMA on 01/05/20 [facility] CNPN Telephone (AGPOB1) -------- YUDIVELIA ([id number]) 1960 M Date Time Provider Department 01/05/20 [...] Order(s):PRE-PROCEDURE AND PRE-OPERATIVE COVID [SQPOCOVD] Order #: [id number] FUTURE Prescriptions as of 01/05/2020 Sig: MUPIROCIN [...] Cervicalgia [M54.2] 04/14/2013 Myalgia and myositis, unspecified [[id number]] 04/14/2013 Iron deficiency anemia [D50.9] 06/10/2016 Weakness [R53.1] 06/24/2016 Lymphadenopathy [R59.1] 02/11/2018 More... Closed displaced fracture of right femoral neck*10/16/2019 Encounter Status:Closed by ONI TAMAYO CMA on 01/05/20 [facility] CNPNon 01-04-2020 CNPN Telephone (AGPOB1) -------- VELIA BAGLEY ([id number]) 1960 M Date Time Provider Department 01/04/20 HIRAL CASTANEDA [facility] During your visit today, we recorded [...] Cervicalgia [M54.2] 04/14/2013 Myalgia and myositis, unspecified [[id number]] 04/14/2013 Iron deficiency anemia [D50.9] 06/10/2016 Weakness [R53.1] 06/24/2016 Lymphadenopathy [R59.1] 02/11/2018 More... Closed displaced fracture of right femoral neck*10/16/2019 Encounter Status:Closed by ONI TAMAYO CMA on 01/04/20 Normal [facility] CT HIP WO IVCON RTon CT HIP WO IVCON RT Final Report DATE OF EXAM: Jan 04 2020 8:55AM [facility] 0080 - CT HIP WO IVCON [...] extension into the lateral soft tissues proximally. Manager Front [facility] Transcribe Date/Time: Jan 04 2020 3:42P Dictated by : RONI MARVIN MD This examination was interpreted and the report reviewed and electronically signed by: RONI MARVIN MD on Jan 04 2020 3:51PM EST Normal [facility] Staph aureus PCRon 0 MRSA PCR SEE BELOW Normal [facility] Comment on above: Result Comment: Nega tive for MRSA by PCR. Performed By: #### R COVD #### [place] [address] S aureus Spec Source NASAL Normal [facility] Comment on above: Performed By: #### R COVD #### [place] [address] Staph aureus PCR SEE BELOW Abnormal [facility] Comment on above: Result Comment: Posi tive for Staphylococcus aureus by PCR.(*) Performing Laboratory: [facility] [address] [place] [address] Performed By: #### R COVD #### [place] [address] Basic Metabolic Panelon 08- Anion gap [Moles/Vol] 8 mmol/L Low 9-18 [facility] Comment on above: Performed By: #### B MP #### [place] [address] Calcium [Mass/Vol] 9.1 mg/dL Normal 8.5-10.2 [facility] Comment on above: Performed By: #### B MP #### [place] [address] Chloride [Moles/Vol] 107 mmol/L High 97-105 [facility] Comment on above: Performed By: #### B MP #### [facility] [address] [place], [place] [address] CO2 Blood 24 mmol/L Normal 22-30 [facility] Comment on above: Performed By: #### B MP #### [facility] [address] [place], [place] [address] Creatinine [Mass/Vol] 1.08 mg/dL Normal 0.73-1.22 [facility] Comment on above: Performed By: #### B MP #### [facility] [address] [place], [place] [address] Glucose [Mass/Vol] 70 mg/dL Low 74-99 [facility] Comment on above: Result Comment: The [place] Diabetes Association (ADA) provides guidance for cutoff [...] Standards of Medical Care in Diabetes 2016; [place] [employer]. Diabetes Care. 2016;39(Suppl 1). Performed By: #### B MP #### [facility] [address] [place], [place] [address] Potassium [Moles/Vol] 4.3 mmol/L Normal 3.7-5.1 [facility] Comment on above: Performed By: #### B MP #### [facility] [address] [place], [place] [address] Sodium [Moles/Vol] 139 mmol/L Normal 136-144 [facility] Comment on above: Performed By: #### B MP #### [facility] [address] [place], [place] [address] Urea nitrogen [Mass/Vol] 18 mg/dL Normal 9-24 [facility] Comment on above: Performed By: #### B MP #### [place] [id number] HISTORY PHYSICALon 0 HISTORY PHYSICAL HNO ID: [id number] Author: Saira Matt Guy Service: ? Author [...] a 59 year old male presenting to [facility] with the c/o above after a fracture [...] Osteoarthritis - Severe persistent asthma Dr Sarmiento patient monitor - TIA (transient ischemic attack) 2016 2017 [...] Heart Failure Father 72 of CHF. 2 [place] before that - Parkinson?s Disease Father 68 [...] - Iodine Anaphylaxis - Penicillins Rash - [place] Oil Unknown - Propranolol Other: See Comments [...] the importance of compliance. Dr Torsten Devlin patient monitor HTN - Well controlled METS: Take care [...] Been Initiated: C 19 ordered in epic ALMOND BLANCHER OPERATOR ordered MRSA type and screen CBC BMP CONSULTS: No Consults Pending patient recently had hip surgery in October for hip fracture with Dr. Castaneda Planned Anesthetic: General Instructions Given to Patient: Patient given verbal and written preop instructions and voices comprehension/compliance . Antimicrobial soap and instructions given to patient. This note has been produced using [employer] speech recognition software and may contain errors to the system including grammar, punctuation, spelling, gender and words and phrases that may be inappropriate. SIGNATURE: Saira Guy APRN.CNP PATIENT NAME: Velia Bagley DATE: January 02, 2020 TIME: 8:33 AM PAGER/CONTACT #: Normal [facility] Hemogramon 01-02-2020 Erythrocyte distribution width (RBC) [Ratio] 15.9 % High 11.6-14.4 [facility] Comment on above: Performed By: #### U RIN2 #### [address] [address] Hematocrit (Bld) [Volume fraction] 44.2 % Normal 40.1-51.0 [facility] Comment on above: Performed By: #### U RIN2 #### [address] [address] Hemoglobin (Bld) [Mass/Vol] 13.9 g/dL Normal 13.7-17.5 [facility] Comment on above: Performed By: #### U RIN2 #### [facility] [address] [place], [place] [address] MCH (RBC) [Entitic mass] 29.7 pg Normal 25.7-32.2 [facility] Comment on above: Performed By: #### U RIN2 #### [facility] [address] [place], [place] [address] MCHC (RBC) [Mass/Vol] 31.4 % Low 32.3-36.5 [facility] Comment on above: Performed By: #### U RIN2 #### [facility] [address] [place] [address] MCV (RBC) [Entitic vol] 94.4 fL Normal 83.2-95.6 [facility] Comment on above: Performed By: #### U RIN2 #### [facility] [address] [place] [address] Platelet mean volume (Bld) [Entitic vol] 9.3 fL Normal 8.7-12.0 [facility] Comment on above: Performed By: #### U RIN2 #### [facility] [address] [place] [address] Platelets (Bld) [#/Vol] 230 thou/cmm Normal 141-365 [facility] Comment on above: Performed By: #### U RIN2 #### [facility] [address] [place] [address] RBC (Bld) [#/Vol] 4.68 mil/cmm Normal 4.63-6.08 [facility] Comment on above: Performed By: #### U RIN2 #### [facility] [address] [place], [place] [address] RDW SD 53.8 fl High 36.1-45.8 [facility] Comment on above: Performed By: #### U RIN2 #### [facility] [address] [place], [place] [address] WBC (Bld) [#/Vol] 7.19 thou/cmm Normal 4.23-9.07 [facility] Comment on above: Performed By: #### U RIN2 #### [facility] [address] [place] [address] MDRD GFRon 01-02-2020 GFR/1.73 sq M predicted among non-blacks MDRD (S/P/Bld) [Vol rate/Area] mL/min/{1.73_m2} Normal >60mL/min/1. 73m2 [facility] Comment on above: Result Comment: If t he patient is , multiply the result by 1.210. Performed By: #### U RIN2 #### [facility] [address] [place] [address] Type and Screenon 01-02-2020 ABO group Nom (Bld) O Normal [facility] Comment on above: Performed By: #### R COVD #### [place] [address] Comment PAT specimen Normal [facility] Comment on above: Performed By: #### R COVD #### [place] [address] RH Type Positive Normal [facility] Comment on above: Performed By: #### R COVD #### [place] [address] HOSPon 12-23-2019 HOSP Patient:Velia Bagley MRN: Height:5' [...] [G56.00] Cervicalgia [M54.2] Myalgia and myositis, unspecified [VCK7356] Iron deficiency anemia [D50.9] Weakness [R53.1] Lymphadenopathy [R59.1] Closed displaced fracture of right femoral neck (HCC) [S72.001A] Status post total hip replacement, 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] Allergies: Avocado Baclofen Candasartan [Other] Chocolate Ciprofloxacin (Bulk) Grass Pollen Indocin [Indomethacin Sodium] Ivp Dye [Iodine] Penicillins [place] Oil Propranolol Sulfa (Sulfonamide Antibiotics) Valium [Diazepam] Date Verified: 01/16/20 Lab Values Lab Value Units Date High Low POTA* 4.3 mmol/L 01/02/2020 5.1 3.7 KEI* 44.2 % 01/02/2020 51.0 40.1 Progress Notes ([facility] POB 440): Hirla Castaneda MD 01/11/2020 9:11 AM Signed ORTHOPAEDIC [...] Osteoarthritis - Severe persistent asthma Dr Sarmiento patient monitor - TIA (transient ischemic attack) 2017 2018 [...] Heart Failure Father 72 of CHF. 2 [place] before that - Parkinson?s Disease Father 68 [...] - Iodine Anaphylaxis - Penicillins Rash - Goshen Oil Unknown - Propranolol Other: See Comments [...] patient was offered a surgery/procedure at a [facility] facility. The surgeon/proceduralist and patient have discussed [...] Signed Patient notified. Oni Tamayo CMA [facility] PROGRESSon 12-22-2019 PROGRESS HNO ID: [id number] Author: Oni Tamayo Service: ? Author Type: Food Service Counter Clerk Type: Progress Notes Filed: 12/22/2019 8:39 AM Note Text: This encounter was opened in error. Oni Tamayo CMA [facility] CNOVon 12-21-2019 CNOV Office Visit (AGPOB1 ) -------- VELIA BAGLEY ([id number]) 1960 M Date Time Provider Department 12/21/19 10:45 AM [facility] today, we recorded [...] 1V UNIL W PELVIS WHEN PERFORMED (AG) [[id number]] Order #: [id number] CT HIP WO IVCON RT [[id number]] Order #: [id number] FUTURE Prescriptions as of 12/21/2019 Sig: DULOXETINE [...] Cervicalgia [M54.2] 04/14/2013 Myalgia and myositis, unspecified [[id number]] 04/14/2013 Iron deficiency anemia [D50.9] 06/10/2016 Weakness [R53.1] 06/24/2016 Lymphadenopathy [R59.1] 02/11/2018 More... Closed displaced fracture of right femoral neck*10/16/2019 Disposition: Return in about 3 weeks (around 01/11/2020). Follow-up and Disposition History Recorded Encounter Status:Closed by HIRAL CASTANEDA MD on 12/21/19 [facility] PROGRESSon 12-21-2019 PROGRESS HNO ID: [id number] Author: Hiral Castaneda Service: ? Author Type: [...] for excessive bleeding, clots, bleeding disorders. Normal [facility] CNOVon 11-29-2019 CNOV Office Visit (AGPOB1 ) -------- VELIA BAGLEY ([id number]) 1960 M Date Time Provider Department 11/29/19 2:15 PM HIRAL CASTANEDA AGPOB1 During your visit today, we recorded the following information about you: Respiration Weight Height 17/minute 99.8 kg 1.778 m Hiral Castaneda MD 11/29/2019 2:56 PM Signed ORTHOPAEDIC OFFICE NOTE CHIEF COMPLAINT: Right hip pain after a fall HISTORY OF PRESENT ILLNESS: Veila Bagley is a 59 year old male [...] Heart Failure Father 72 of CHF. 2 [place] before that - Parkinson?s Disease Father 68 [...] - Iodine Anaphylaxis - Penicillins Rash - Gos[place] Oil Unknown - Propranolol Other: See Comments [...] 1V UNIL W PELVIS WHEN PERFORMED (AG) [[id number]] Order #: [id number] Prescriptions as of 11/29/2019 Sig: DULOXETINE 60 [...] Cervicalgia [M54.2] 04/14/2013 Myalgia and myositis, unspecified [[id number]] 04/14/2013 Iron deficiency anemia [D50.9] 06/10/2016 Weakness [R53.1] 06/24/2016 Lymphadenopathy [R59.1] 02/11/2018 More... Closed displaced fracture of right femoral neck*10/16/2019 Disposition: Return in about 3 weeks (around 12/20/2019). Follow-up and Disposition History Recorded Encounter Status:Closed by HIRAL CASTANEDA MD on 11/29/19 [facility] PROGRESSon 11-29-2019 PROGRESS HNO ID: [id number] Author: Hiral Castaneda Service: ? Author Type: [...] Heart Failure Father 72 of CHF. 2 [place] before that - Parkinson?s Disease Father 68 [...] - Iodine Anaphylaxis - Penicillins Rash - Gos[place] Oil Unknown - Propranolol Other: See Comments [...] 3 weeks (around 12/20/2019). Hiral Castaneda MD [facility] 11-22-2019 [facility] Office Visit (AGPOB1 ) -------- VELIA BAGLEY ([id number]) 1960 M Date Time Provider Department 11/22/19 [...] back in 4 weeks' time. Referring Provider: [facility] EMERGENCY [facility]PT [[id number]] Allergies As of Date: 11/22/2019 Noted Allergy [...] 1V UNIL W PELVIS WHEN PERFORMED (AG) [[id number]] Order #: [id number] FUTURE Prescriptions as of 11/22/2019 Sig: DULOXETINE [...] Cervicalgia [M54.2] 04/14/2013 Myalgia and myositis, unspecified [[id number]] 04/14/2013 Iron deficiency anemia [D50.9] 06/10/2016 Weakness [R53.1] 06/24/2016 Lymphadenopathy [R59.1] 02/11/2018 More... Closed displaced fracture of right femoral neck*10/16/2019 Disposition: Return in about 4 weeks (around 12/20/2019). Follow-up and Disposition History Recorded Encounter Status:Closed by HIRAL CASTANEDA MD on 11/22/19 [facility] PROGRESSon 11-22-2019 PROGRESS HNO ID: [id number] Author: Hiral Castaneda Service: ? Author Type: [...] him back in 4 weeks' time. Normal [facility] PROGRESSon 11-02-2019 PROGRESS HNO ID: [id number] Author: Hiral Castaneda Service: ? Author Type: [...] Sooner if he has any issues. Normal [facility] CNOVon 11-01-2019 CNOV Office Visit (AGPOB1 ) -------- VELIA BAGLEY ([id number]) 1960 M Date Time Provider Department 11/01/19 11:00 AM HIRAL CASTANEDA AKIRA During your visit today, we recorded the following information about you: Respiration Weight Height 18/minute 103.9 kg 1.753 m Hiral Castaneda MD 11/02/2019 10:49 AM Signed Mr Bagley [...] has any issues. Referring Provider: HIRAL CASTANEDA [[id number]] Allergies As of Date: 11/01/2019 Noted Allergy [...] neck (HCC) [S72.001A] Order(s):XR PELVIS 1V AP [[id number]] Order #: [id number] Prescriptions as of 11/01/2019 Sig: DULOXETINE 60 [...] Cervicalgia [M54.2] 04/14/2013 Myalgia and myositis, unspecified [RSQ9255] 04/14/2013 Iron deficiency anemia [D50.9] 06/10/2016 Weakness [R53.1] 06/24/2016 Lymphadenopathy [R59.1] 02/11/2018 More... Closed displaced fracture of right femoral neck*10/16/2019 Disposition: Return in about 3 weeks (around 11/22/2019). Follow-up and Disposition History Recorded Encounter Status:Closed by HIRAL CASTANEDA MD on 11/02/19 [facility] CASE MANAGEMon 10-20-2019 CASE MANAGEM HNO ID: [id number] Author: Cristin HarperRn) BULL Grewal Service: Care Management Author Type: Registered Nurse Type: Care Mgt Progress Note Filed: 10/20/2019 1:28 PM Note Text: CARE MANAGEMENT DISCHARGE NOTE SERVICE DATE: 10/20/2019 SERVICE TIME: 12:02 PM LOS: 4 days Admission Date: 10/16/2019 DISCHARGE ARRANGEMENT [facility] Discharge Arrangement: Home Senior Living Care: PT;OT Provider Name: [facility] . Called provider, confirmed accept for home [...] needs and plan for meeting these needs: [facility]. . Home with son. Son resides with pt HANDOFF COMMUNICATION: Handoff to: Primary Care Physician Primary Care Physician Name/Phone: Dr. Rayo [phone]. Home care: [facility] TRANSPORTATION ARRANGEMENTS: Transportation Arrangements: Car ADDITIONAL CONTACT RESOURCES: Discharge Information Row Name ED to Hosp-Admission (Current) from 10/16/[address] [facility] SIGNATURE: Cristin Grewal RN PATIENT NAME: Velia Bagley DATE: October 20, 2019 TIME: 12:02 PM PAGER/CONTACT #: [phone] Normal [facility] Hemogramon 10-20-2019 Erythrocyte distribution width (RBC) [Ratio] 16.3 % High 11.6-14.4 [facility] Comment on above: Performed By: #### U RIN2 #### [facility] [address] [place] [address] Hematocrit (Bld) [Volume fraction] 33.5 % Low 40.1-51.0 [facility] Comment on above: Performed By: #### U RIN2 #### [place] [address] Hemoglobin (Bld) [Mass/Vol] 10.5 g/dL Low 13.7-17.5 [facility] Comment on above: Performed By: #### U RIN2 #### [facility] [address] [place] [address] MCH (RBC) [Entitic mass] 28.7 pg Normal 25.7-32.2 [facility] Comment on above: Performed By: #### U RIN2 #### [place] [address] MCHC (RBC) [Mass/Vol] 31.3 % Low 32.3-36.5 [facility] Comment on above: Performed By: #### U RIN2 #### [facility] [address] [place] [address] MCV (RBC) [Entitic vol] 91.5 fL Normal 83.2-95.6 [facility] Comment on above: Performed By: #### U RIN2 #### [facility] [address] [place] [address] Platelet mean volume (Bld) [Entitic vol] 9.5 fL Normal 8.7-12.0 [facility] Comment on above: Performed By: #### U RIN2 #### [facility] [address] [place], [place] [address] Platelets (Bld) [#/Vol] 159 thou/cmm Normal 141-365 [facility] Comment on above: Performed By: #### U RIN2 #### [facility] [address] [place], [place] [address] RBC (Bld) [#/Vol] 3.66 mil/cmm Low 4.63-6.08 [facility] Comment on above: Performed By: #### U RIN2 #### [facility] [address] [place], [place] [address] RDW SD 54.6 fl High 36.1-45.8 [facility] Comment on above: Performed By: #### U RIN2 #### [facility] [address] [place], [place] [address] WBC (Bld) [#/Vol] 4.39 thou/cmm Normal 4.23-9.07 [facility] Comment on above: Performed By: #### U RIN2 #### [facility] [address] [place], [place] [address] PROGRESSon 10-20-2019 PROGRESS HNO ID: [id number] Author: Yuriy Stratton Service: Hospital Medicine Author Type: Physician Type: Progress Notes Filed: 10/20/2019 4:07 PM Note Text: DEPARTMENT OF HOSPITAL MEDICINE PROGRESS NOTE SERVICE DATE: 10/20/2019 SERVICE TIME: 930am Hospital Medicine/Primary Attending: Yuriy Stratton, DO NIGHT AND WEEKEND COVERAGE: After 7pm please page [phone] CHIEF COMPLAINT: No new complaints SUBJECTIVE: Pt [...] this note may have been generated using [employer] voice recognition software. Reasonable efforts were made to correct any dictation errors that resulted due to the programming of this software but some may still be present. Normal [facility] PROGRESS HNO ID: [id number] Author: Elizabeth Ferro Service: Orthopaedic Surgery Author [...] Elizabeth Ferro MD 10/20/2019 6:29 AM Normal [facility] THERAPY NTon 10-20-2019 THERAPY NT HNO ID: [id number] Author: Willam Kruse) Laurita Service: Physical Therapy Author Type: Regional Agronomist Type: Therapy (PT/OT/Speech/Resp) Filed: 10/20/2019 9:57 AM Note Text: -------- Attestation signed by Liv Brock at 10/20/2019 11:55 AM I reviewed and agree with the documentation corresponding to this therapy visit. SIGNATURE: Liv Brock, PT DATE: October 20, 2019 TIME: 11:55 AM -------- Physical Therapy Treatment SERVICE DATE: 10/20/2019 SERVICE TIME: 932 to 946 ROOM: [place] [address] Recommended Discharge Disposition: Home PT Recommended Discharge [...] and signs-other;Difficulty walking-musculoskeletal Interventions Provided: Therapeutic Exercise (10660);Therapeutic Activity (12819) Therapeutic Exercise (16337) Treatment Minutes: 12 1 unit Skilled Intervention(s): [...] elevated lower extremity as needed. Therapeutic Activity (91265) Treatment Minutes: 2 0 units Skilled Intervention(s): [...] Environment Patient Lives With: Family Assistance Available: boom master Entry To Home: No Stairs Number Of [...] October 20, 2019 TIME: 9:51 AM Normal [facility] Basic Metabolic Panelon 06- Anion gap [Moles/Vol] 8 mmol/L Low 9-18 [facility] Comment on above: Performed By: #### U RIN2 #### [facility] [address] [place], [place] [address] Calcium [Mass/Vol] 8.1 mg/dL Low 8.5-10.2 [facility] Comment on above: Performed By: #### U RIN2 #### [facility] [address] [place], [place] [address] Chloride [Moles/Vol] 114 mmol/L High 97-105 [facility] Comment on above: Performed By: #### U RIN2 #### [facility] [address] [place], [place] [address] CO2 Blood 19 mmol/L Low 22-30 [facility] Comment on above: Performed By: #### U RIN2 #### [facility] [address] [place], [place] [address] Creatinine [Mass/Vol] 1.02 mg/dL Normal 0.73-1.22 [facility] Comment on above: Performed By: #### U RIN2 #### [facility] [address] [place], [place] [address] Glucose [Mass/Vol] 112 mg/dL High 74-99 [facility] Comment on above: Result Comment: The [place] Diabetes Association (ADA) provides guidance for cutoff [...] Standards of Medical Care in Diabetes 2016; [place] [employer] Association. Diabetes Care. 2016;39(Suppl 1). Performed By: #### U RIN2 #### [facility] [address] [place], [place] [address] Potassium [Moles/Vol] 4.3 mmol/L Normal 3.7-5.1 [facility] Comment on above: Performed By: #### U RIN2 #### [facility] [address] [place] [address] Sodium [Moles/Vol] 141 mmol/L Normal 136-144 [facility] Comment on above: Performed By: #### U RIN2 #### [facility] [address] [place] [address] Urea nitrogen [Mass/Vol] 13 mg/dL Normal 9-24 [facility] Comment on above: Performed By: #### U RIN2 #### [facility] [address] [place] [address] CASE MANAGEMon 10-19-2019 CASE MANAGEM HNO ID: [id number] Author: Jennifer Garvin (Sw) Service: Care Management Author Type: Brass Pickler Type: Care Mgt Progress Note Filed: 10/19/2019 [...] stay with his daughter at Address [address] [place] [address] at discharge. [facility] home care accepted and pt has DME at home. SIGNATURE: EDI Neri PATIENT NAME: Velia Bagley DATE: October 19, 2019 TIME: 1:44 PM PAGER/CONTACT #: [phone] [facility] CONSULTon 10-19-2019 CONSULT HNO ID: [id number] Author: Mathew Yanez Service: Palliative Care Author [...] time standing up and he went into [facility] on 10/28/2016. The first time he went [...] Heart Failure Father 72 of CHF. 2 [place] before that - Parkinson?s Disease Father 68 [...] kg/(m2) Date 10/17/19699 - 10/18/19 0659 Shift 4042-6875 0942-5971 7787-7144 24 Hour Total INTAKE Shift Total OUTPUT Urine 800 800 Shift Total 800 800 Weight (kg) 104.2 104.2 104.2 104.2 Date 10/16/19699 - 10/17/1965810/17/19699 - 10/18/19 0659 Shift 2975-7766 1875-0310 5106-8431 24 Hour Total 5525-5455 5971-4788 5398-2852 24 Hour Total INTAKE Shift Total OUTPUT [...] ambulating reasonably well. Mathew Yanez M.D. Normal [facility] Hemogramon 10-19-2019 Erythrocyte distribution width (RBC) [Ratio] 16.5 % High 11.6-14.4 [facility] Comment on above: Performed By: #### C BC1 #### [facility] [address] [place], [place] [address] Hematocrit (Bld) [Volume fraction] 37.2 % Low 40.1-51.0 [facility] Comment on above: Performed By: #### C BC1 #### [facility] [address] [place], [place] [address] Hemoglobin (Bld) [Mass/Vol] 11.7 g/dL Low 13.7-17.5 [facility] Comment on above: Performed By: #### C BC1 #### [facility] [address] [place], [place] [address] MCH (RBC) [Entitic mass] 28.7 pg Normal 25.7-32.2 [facility] Comment on above: Performed By: #### C BC1 #### [facility] [address] [place], [place] [address] MCHC (RBC) [Mass/Vol] 31.5 % Low 32.3-36.5 [facility] Comment on above: Performed By: #### C BC1 #### [facility] [address] [place], [place] [address] MCV (RBC) [Entitic vol] 91.2 fL Normal 83.2-95.6 [facility] Comment on above: Performed By: #### C BC1 #### [facility] [address] [place], [place] [address] Platelet mean volume (Bld) [Entitic vol] 9.7 fL Normal 8.7-12.0 [facility] Comment on above: Performed By: #### C BC1 #### [facility] [address] [place], [place] [address] Platelets (Bld) [#/Vol] 176 thou/cmm Normal 141-365 [facility] Comment on above: Performed By: #### C BC1 #### [facility] [address] [place] [address] RBC (Bld) [#/Vol] 4.08 mil/cmm Low 4.63-6.08 [facility] Comment on above: Performed By: #### C BC1 #### [facility] [address] [place] [address] RDW SD 53.8 fl High 36.1-45.8 [facility] Comment on above: Performed By: #### C BC1 #### [facility] [address] [place] [address] WBC (Bld) [#/Vol] 5.66 thou/cmm Normal 4.23-9.07 [facility] Comment on above: Performed By: #### C BC1 #### [facility] [address] [place] [address] Erythrocyte distribution width (RBC) [Ratio] 16.5 % High 11.6-14.4 [facility] Comment on above: Performed By: #### C BC1 #### [facility] [address] [place] [address] Hematocrit (Bld) [Volume fraction] 34.9 % Low 40.1-51.0 [facility] Comment on above: Performed By: #### C BC1 #### [facility] [address] [place] [address] Hemoglobin (Bld) [Mass/Vol] 11.3 g/dL Low 13.7-17.5 [facility] Comment on above: Performed By: #### C BC1 #### [facility] [address] [place] [address] MCH (RBC) [Entitic mass] 29.4 pg Normal 25.7-32.2 [facility] Comment on above: Performed By: #### C BC1 #### [facility] [address] [place] [address] MCHC (RBC) [Mass/Vol] 32.4 % Normal 32.3-36.5 [facility] Comment on above: Performed By: #### C BC1 #### [facility] [address] [place] [address] MCV (RBC) [Entitic vol] 90.9 fL Normal 83.2-95.6 [facility] Comment on above: Performed By: #### C BC1 #### [facility] [address] [place], [place] [address] Platelet mean volume (Bld) [Entitic vol] 9.4 fL Normal 8.7-12.0 [facility] Comment on above: Performed By: #### C BC1 #### [facility] [address] [place], [place] [address] Platelets (Bld) [#/Vol] 151 thou/cmm Normal 141-365 [facility] Comment on above: Performed By: #### C BC1 #### [facility] [address] [place] [id number] RBC (Bld) [#/Vol] 3.84 mil/cmm Low 4.63-6.08 [facility] Comment on above: Performed By: #### C BC1 #### [facility] [address] [place] [address] RDW SD 54.7 fl High 36.1-45.8 [facility] Comment on above: Performed By: #### C BC1 #### [facility] [address] [place], [place] [address] WBC (Bld) [#/Vol] 4.79 thou/cmm Normal 4.23-9.07 [facility] Comment on above: Performed By: #### C BC1 #### [place] [id number] MDRD GFRon 10-19-2019 GFR/1.73 sq M predicted among non-blacks MDRD (S/P/Bld) [Vol rate/Area] mL/min/{1.73_m2} Normal >60mL/min/1. 73m2 [facility] Comment on above: Result Comment: If t he patient is , multiply the result by 1.210. Performed By: #### U RIN2 #### [place] [id number] PLAN OF CAREon 10-19-2019 PLAN OF CARE HNO ID: [id number] Author: Sydnee Vincent ([employer]) Service: Pharmacy Author Type: ? Type: Plan of Care Filed: 10/19/2019 1:50 PM Note Text: MATCHER OFFBEARER BEDSIDE DELIVERY SURVEY 1. Patient to use [facility] Bedside Delivery - NO prefer own pharmacy Insurance Information as follows: 2. Insurance card on file - YES 3. Credit card for payment - N/A Patient declined bedside delivery of home going meds, however going on Lovenox, will check again on day of DC. Sydnee Vincent ([employer]) Extension [phone], or [phone] Normal [facility] PROGRESSon 10-19-2019 PROGRESS HNO ID: [id number] Author: Yuriy Stratton Service: Hospital Medicine Author Type: Physician Type: Progress Notes Filed: 10/19/2019 4:08 PM Note Text: DEPARTMENT OF HOSPITAL MEDICINE PROGRESS NOTE SERVICE DATE: 10/19/2019 SERVICE TIME: 4:04 PM Hospital Medicine/Primary Attending: Yuriy Stratton, DO NIGHT AND WEEKEND COVERAGE: After 7pm please page [phone] CHIEF COMPLAINT: R hip pain, wheeze SUBJECTIVE: [...] Lovenox 40mg Sub Q Daily ? Disposition: [facility], Home PT Plan of care discussed with: Provider, RN, Patient SIGNATURE: Yuriy Stratton DO PATIENT NAME: Velia Bagley DATE: October 19, 2019 TIME: 4:04 PM PAGER/CONTACT #: Team color pager Disclaimer: Portions of this note may have been generated using [employer] voice recognition software. Reasonable efforts were made to correct any dictation errors that resulted due to the programming of this software but some may still be present. Normal [facility] PROGRESS HNO ID: [id number] Author: Hiral Castaneda Service: Orthopaedic Surgery Author [...] Alex Mandujano MD Orthopaedic Surgery, PGY-3 Pager: [phone] Ortho Pager: [phone] Normal [facility] THERAPY NTon 10-19-2019 THERAPY NT HNO ID: [id number] Author: Saira Berry Service: Physical Therapy Author Type: Regional Agronomist Type: Therapy (PT/OT/Speech/Resp) Filed: 10/19/2019 3:36 PM Note Text: -------- Attestation signed by Liv Brock at 10/19/2019 5:06 PM I reviewed and agree with the documentation corresponding to this therapy visit. SIGNATURE: Liv Brock, PT DATE: October 19, 2019 TIME: 5:06 PM -------- Physical Therapy Treatment SERVICE DATE: 10/19/2019 SERVICE TIME: 1505 to 1530 ROOM: [id number] Recommended Discharge Disposition: Home PT Recommended Discharge [...] and signs-other;Difficulty walking-musculoskeletal Interventions Provided: Therapeutic Exercise (04769);Therapeutic Activity (40217);Gait Training (59705) Therapeutic Exercise (17484) Treatment Minutes: 12 1 unit Skilled Intervention(s): [...] breathe and maintain proper alignment. Therapeutic Activity (79261) Treatment Minutes: 3 0 units Skilled Intervention(s): Instructed patient in supine to and from sit pushing with upper extremities to sit up with head of bed at 20 degrees and use of rail. Light amount of assist with his right leg. Use of bathroom. Patient does well with control of his clothes and hygiene. Gait Training (60810) Treatment Minutes: 10 1 unit Skilled Intervention(s): [...] Environment Patient Lives With: Family Assistance Available: boom master Entry To Home: No Stairs Number Of [...] enter. OBJECTIVE: Mini Cog Score: 3 (10/18/19 0013) CURRENT FUNCTIONAL STATUS: Current Functional Mobility Assist [...] decreased;Flexed trunk posture;Non-functional gait speed;Step length decreased [facility]: Walk 25 feet or more Please see discipline specific clinical documentation flowsheet for complete details for this therapy evaluation/treatment. SIGNATURE: Saira Berry PTA PATIENT NAME: Velia Bagley DATE: October 19, 2019 TIME: 3:31 PM Normal [facility] THERAPY NT HNO ID: [id number] Author: Monserrat HarperOtr/Fiorella Smith Service: Occupational Therapy Author Type: Occupational Therapist Type: Therapy (PT/OT/Speech/Resp) Filed: 10/19/2019 12:01 PM Note Text: Occupational Therapy Treatment SERVICE DATE: 10/19/2019 SERVICE TIME: 1115 to 1140 ROOM: [place] [address] Recommended Discharge Disposition: Home OT Recommended Discharge [...] feet;General symptoms and signs-other Interventions Provided: Self Senior Living Management (08202) Self Senior Living Management (49811) Treatment Minutes: 25 2 units Skilled Intervention(s): [...] were noted Reason for Occupational Therapy Consult: [employer] Relevant Past Medical History: HTN, stenosis, asthma, UTI Patient Report: found in therapy department, agreeable to session, slight pain at surgical site. I feel overwhelmed. Home Environment Patient Lives With: Family Assistance Available: boom master Entry To Home: No Stairs Number Of [...] October 19, 2019 TIME: 11:56 AM [facility] [facility] THERAPY NT HNO ID: [id number] Author: Saira Berry Service: Physical Therapy Author Type: Regional Agronomist Type: Therapy (PT/OT/Speech/Resp) Filed: 10/19/2019 11:58 AM Note Text: -------- Attestation signed by Liv Brock at 10/19/2019 3:15 PM I reviewed and agree with the documentation corresponding to this therapy visit. SIGNATURE: Liv Brock, PT DATE: October 19, 2019 TIME: 3:14 PM -------- Physical Therapy Treatment SERVICE DATE: 10/19/2019 SERVICE TIME: 1030 to 1108 ROOM: [id number] Recommended Discharge Disposition: Home PT Recommended Discharge [...] of Session: Supine in Bed;Call [place] in Reach;Family Present(son) Patient Disposition at End [...] and signs-other;Difficulty walking-musculoskeletal Interventions Provided: Therapeutic Exercise (03470);Therapeutic Activity (65785);Gait Training (30703) Therapeutic Exercise (69231) Treatment Minutes: 13 1 unit Skilled Intervention(s): [...] proper alignment, and slower pace. Therapeutic Activity (91102) Treatment Minutes: 12 1 unit Skilled Intervention(s): [...] assisted patient to get up). Gait Training (65661) Treatment Minutes: 13 1 unit Skilled Intervention(s): [...] Environment Patient Lives With: Family Assistance Available: boom master Entry To Home: No Stairs Number Of [...] October 19, 2019 TIME: 11:44 AM [facility] ALLIED HEALTHon 10-18-2019 ALLIED HEALTH HNO ID: [id number] Author: Nemo (Student) Marie Castaneda Service: Spiritual Care Author Type: Student Type: Allied Health Filed: 10/18/2019 10:58 AM Note Text: Summary: Spiritual Care SPIRITUAL CARE PROGRESS NOTE SERVICE DATE: 10/18/2019 SERVICE TIME: 10:56am As ethnoarchaeologist, I attempted contact with patient by phone but received no answer. Will re-attempt contact as able. To contact the Spiritual Care Department: Please call [phone]. SIGNATURE: Marie Hidalgo PATIENT NAME: Velia Bagley DATE: October 18, 2019 TIME: 10:57 AM PAGER/CONTACT #: [phone] [facility] CASE MANAGEMon 10-18-2019 CASE MANAGEM HNO ID: [id number] Author: Jennifer Anthony) Bharathi Service: Care Management Author Type: Brass Pickler Type: Care Mgt Progress Note Filed: 10/18/2019 1:48 PM Note Text: CARE MANAGEMENT PROGRESS NOTE SERVICE DATE: 10/18/2019 SERVICE TIME: 1330 LOS: 2 days [place] of Choice Given: Yes Level of Care Discussed: Home Care Provider List: Home Care Provider list within the patient's requested geographic area shared with the patient/family: Yes within: 20 miles of zip code: [address] PT/OT recommending home care. Referrals sent to home care, [facility] at home, [facility] and [facility]. Pt will stay with his daughter short term at discharge: Address [address] [place] [address] SIGNATURE: EDI Neri PATIENT NAME: Velia Bagley DATE: October 18, 2019 TIME: 1:47 PM PAGER/CONTACT #: [phone] [facility] CONSULTon 10-18-2019 CONSULT HNO ID: [id number] Author: Mathew Chan Beau Service: Hematology Author [...] time standing up and he went into [place] on 10/28/2016. The first time he went [...] Heart Failure Father 72 of CHF. 2 [place] before that - Parkinson?s Disease Father 68 [...] kg/(m2) Date 10/17/19699 - 10/18/19 0659 Shift 0974-0315 2677-3291 1996-6467 24 Hour Total INTAKE Shift Total OUTPUT Urine 800 800 Shift Total 800 800 Weight (kg) 104.2 104.2 104.2 104.2 Date 10/16/19699 - 10/17/1965810/17/19699 - 10/18/19 0659 Shift 2012-6004 8102-7521 0485-0113 24 Hour Total 3644-8094 3914-2884 0274-6314 24 Hour Total INTAKE Shift Total OUTPUT [...] No results for input(s): RETICP, ABSRETIC, LD, BRINA, FE, TIBC, TRANSFERSAT in the last 24 [...] ambulating reasonably well. Mathew Yanez M.D. Normal [facility] Hemogram/Diffon 10-18-2019 Abs Immature Grans 0.06 thou/cmm High 0.00-0.05 [facility] Comment on above: Performed By: #### C BCD1 #### [facility] [address] [place], [place] [address] Abs Neut (ANC) 5.12 thou/cmm Normal 1.78-5.38 [facility] Comment on above: Performed By: #### C BCD1 #### [address] [address] Abs. Baso 0.01 thou/cmm Normal 0.01-0.08 [facility] Comment on above: Performed By: #### C BCD1 #### [place] [address] Abs. [place] 0.63 thou/cmm Normal 0.30-0.82 [facility] Comment on above: Performed By: #### C BCD1 #### [address] [address] Basophils/100 WBC (Bld) 0.1 % Normal [facility] Comment on above: Performed By: #### C BCD1 #### [facility] [address] [place], [place] [address] Eosinophils (Bld) [#/Vol] 0.00 thou/cmm Low 0.04-0.54 [facility] Comment on above: Performed By: #### C BCD1 #### [facility] [address] [place], [place] [address] Eosinophils/100 WBC (Bld) 0.0 % Normal [facility] Comment on above: Performed By: #### C BCD1 #### [facility] [address] [place] [address] Erythrocyte distribution width (RBC) [Ratio] 16.1 % High 11.6-14.4 [facility] Comment on above: Performed By: #### C BCD1 #### [facility] [address] [place] [address] Hematocrit (Bld) [Volume fraction] 35.0 % Low 40.1-51.0 [facility] Comment on above: Performed By: #### C BCD1 #### [facility] [address] [place] [address] Hemoglobin (Bld) [Mass/Vol] 11.2 g/dL Low 13.7-17.5 [facility] Comment on above: Performed By: #### C BCD1 #### [facility] [address] [place] [address] Immature Grans 0.90 % Normal [facility] Comment on above: Performed By: #### C BCD1 #### [facility] [address] [place] [address] Lymphocytes (Bld) [#/Vol] 1.11 thou/cmm Normal 0.84-2.85 [facility] Comment on above: Performed By: #### C BCD1 #### [facility] [address] [place] [address] Lymphocytes/100 WBC (Bld) 16.0 % Normal [facility] Comment on above: Performed By: #### C BCD1 #### [facility] [address] [place] [address] MCH (RBC) [Entitic mass] 28.9 pg Normal 25.7-32.2 [facility] Comment on above: Performed By: #### C BCD1 #### [facility] [address] [place] [address] MCHC (RBC) [Mass/Vol] 32.0 % Low 32.3-36.5 [facility] Comment on above: Performed By: #### C BCD1 #### [facility] [address] [place] [address] MCV (RBC) [Entitic vol] 90.2 fL Normal 83.2-95.6 [facility] Comment on above: Performed By: #### C BCD1 #### [facility] [address] [place], [place] [address] Monocytes/100 WBC (Bld) 9.1 % Normal [facility] Comment on above: Performed By: #### C BCD1 #### [facility] [address] [place], [place] [address] Platelet mean volume (Bld) [Entitic vol] 9.3 fL Normal 8.7-12.0 [facility] Comment on above: Performed By: #### C BCD1 #### [facility] [address] [place], [place] [address] Platelets (Bld) [#/Vol] 168 thou/cmm Normal 141-365 [facility] Comment on above: Performed By: #### C BCD1 #### [facility] [address] [place], [place] [address] RBC (Bld) [#/Vol] 3.88 mil/cmm Low 4.63-6.08 [facility] Comment on above: Performed By: #### C BCD1 #### [facility] [address] [place], [place] [address] RDW SD 53.3 fl High 36.1-45.8 [facility] Comment on above: Performed By: #### C BCD1 #### [facility] [address] [place], [place] [address] Seg Neutrophil 73.9 % Normal [facility] Comment on above: Performed By: #### C BCD1 #### [facility] [address] [place], [place] [address] WBC (Bld) [#/Vol] 6.93 thou/cmm Normal 4.23-9.07 [facility] Comment on above: Performed By: #### C BCD1 #### [facility] [address] [place] [address] PROGRESSon 10-18-2019 PROGRESS HNO ID: [id number] Author: Yuriy Stratton Service: Hospital Medicine Author Type: Physician Type: Progress Notes Filed: 10/18/2019 5:09 PM Note Text: DEPARTMENT OF HOSPITAL MEDICINE PROGRESS NOTE SERVICE DATE: 10/18/2019 SERVICE TIME: 4:59 PM Hospital Medicine/Primary Attending: Yuriy Stratton DO NIGHT AND WEEKEND COVERAGE: After 7pm please page [phone] CHIEF COMPLAINT: R hip/leg pain SUBJECTIVE: Pt [...] Prophylaxis: Lovenox 40mg Sub Q Daily Disposition: [facility], Home PT Plan of care discussed with: Provider, RN, Patient SIGNATURE: Yuriy Stratton DO PATIENT NAME: Velia Bagley DATE: October 18, 2019 TIME: 4:59 PM PAGER/CONTACT #: Team color pager Disclaimer: Portions of this note may have been generated using [employer] voice recognition software. Reasonable efforts were made to correct any dictation errors that resulted due to the programming of this software but some may still be present. Normal [facility] PROGRESS HNO ID: [id number] Author: Hiral Castaneda Service: Orthopaedic Surgery Author [...] MD Orthopaedic Surgery 10/18/2019 6:17 AM Normal [facility] THERAPY NTon 10-18-2019 THERAPY NT HNO ID: [id number] Author: Liv (PtVibha Brock Service: Physical Therapy Author Type: Physical Therapist Type: Therapy (PT/OT/Speech/Resp) Filed: 10/18/2019 4:54 PM Note Text: Physical Therapy Treatment SERVICE DATE: 10/18/2019 SERVICE TIME: 1535 to 1600 ROOM: [id number] Recommended Discharge Disposition: Home PT Recommended Discharge [...] and signs-other;Difficulty walking-musculoskeletal Interventions Provided: Therapeutic Activity (87396);Gait Training (71531);Therapeutic Exercise (28813) Therapeutic Exercise (91402) Treatment Minutes: 10 1 unit Skilled Intervention(s): Patient completed right hip fracture protocol (ankle pump, quad set, gluteal set, heel slide, hip abd/add to neutral, short arc quad) x 10 reps with min amount of assist. Patient reports moderate pain. Patient set up with ice to surgical hip and elevated lower extremity as needed. Therapeutic Activity (60086) Treatment Minutes: 5 Skilled Intervention(s): Bed mobility: [...] trunk control, requires moderate assist. Gait Training (79185) Treatment Minutes: 8 1 unit Skilled Intervention(s): [...] Environment Patient Lives With: Family Assistance Available: boom master Entry To Home: No Stairs Number Of [...] October 18, 2019 TIME: 4:48 PM Normal [facility] THERAPY NT HNO ID: [id number] Author: Liv HarperPtVibha Brock Service: Physical Therapy Author Type: Physical Therapist Type: Therapy (PT/OT/Speech/Resp) Filed: 10/18/2019 1:12 PM Note Text: Physical Therapy Evaluation SERVICE DATE: 10/18/2019 SERVICE TIME: 930 to 954 ROOM: [id number] Recommended Discharge Disposition: Home PT Recommended Discharge [...] and signs-other;Difficulty walking-musculoskeletal Interventions Provided: Evaluation;Therapeutic Exercise (85701);Gait Training (70229) $ Evaluation-Moderate (44330) Billed Units: 1 unit History and examination of body systems see assessment section above. This patient?s clinical presentation is evolving. The patient required a moderate complexity evaluation. Therapeutic Exercise (67384) Treatment Minutes: 2 Skilled Intervention(s): Patient completed right hip fracture protocol (ankle pump, quad set, gluteal set) x 10 reps with min amount of assist. Patient reports moderate pain. Patient set up with ice to surgical hip and elevated lower extremity as needed. Gait Training (28940) Treatment Minutes: 8 1 unit Skilled Intervention(s): [...] Environment Patient Lives With: Family Assistance Available: boom master Entry To Home: No Stairs Number Of [...] October 18, 2019 TIME: 1:07 PM Normal [facility] THERAPY NT HNO ID: [id number] Author: Monserrat HarperOtr/Fiorella Smith Service: Occupational Therapy Author Type: Occupational Therapist Type: Therapy (PT/OT/Speech/Resp) Filed: 10/18/2019 11:44 AM Note Text: Occupational Therapy Evaluation SERVICE DATE: 10/18/2019 SERVICE TIME: 2660 to 6255 ROOM: [id number] Recommended Discharge Disposition: Home OT Recommended Discharge [...] feet;General symptoms and signs-other Interventions Provided: Evaluation;Self Senior Living Management (36878) $ Evaluation-Low (52150) Billed Units: 1 unit OT Evaluation Low [...] present to affect patient's occupational performance. Self Senior Living Management (47760) Treatment Minutes: 10 1 unit Skilled Intervention(s):Educated [...] right CRPP. Reason for Occupational Therapy Consult: UTILITY PLANT OPERATIVE Relevant Past Medical History: HTN, stenosis, asthma, UTI Patient Report: found supine, agreeable to session, moderate pain. I am going to stay with my daughter for a little bit. Home Environment Patient Lives With: Family Assistance Available: boom master Entry To Home: No Stairs Equipment Owned: [...] October 18, 2019 TIME: 11:40 AM [facility] ALLIED HEALTHon 10-17-2019 ALLIED HEALTH HNO ID: [id number] Author: Jo (Bull) Giovana Service: Nursing Author Type: Registered Nurse Type: Allied Health Filed: 10/17/2019 8:19 AM Note Text: ANCILLARY ORTHOPEDIC [employer] CONSULTANT PROGRESS NOTE SERVICE DATE: 10/17/2019 SERVICE TIME: 0810 Spoke to patient at bedside, he is doing ok, pain managed. Patient to OR today for RONALD. He is from home with son, lives in a ranch home, no steps to enter. Patient states he has a ww/cane/shower chair at home, plans to discharge home with the [facility], pending PT eval following surgery. I will continue to follow for needs, complete care guide given and explained. SIGNATURE: Jo Cruz RN PATIENT NAME: Velia Bagley DATE: October 17, 2019 TIME: 8:17 AM PAGER/CONTACT #: [phone] [facility] ANES Nella 10-17-2019 ANES POST HNO ID: [id number] Author: Andi Fernando Service: Anesthesiology Author Type: [...] 2019 TIME: 6:34 PM PAGER/CONTACT #: Penny [facility] ANES PREOPon 10-17-2019 ANES PREOP HNO ID: [id number] Author: Edith Fernando Service: Anesthesiology Author Type: [...] Heart Failure Father 72 of CHF. 2 [place] before that - Parkinson?s Disease Father 68 [...] - Iodine Anaphylaxis - Penicillins Rash - Gos[place] Oil Unknown - Propranolol Other: See Comments [...] October 17, 2019 TIME: 1:10 PM CSN: [id number] [facility] BRIEF OP NOTon 10-17-2019 BRIEF OP NOT HNO ID: [id number] Author: Elizabeth Ferro Service: Orthopaedic Surgery Author Type: Resident Type: Brief Op Note Filed: 10/17/2019 5:07 PM Note Text: ORTHO BRIEF OPERATIVE REPORT PATIENT NAME: Velia Bagley LOG ID: [id number] Surgery/Procedure Date: 10/17/2019 Incision/Procedure Start Time: 4:15 PM Incision Close/Procedure End Time: Surgeon(s)/Proceduralist (s) and Small Animal Veterinarian(s): Surgeon(s) and Role: * Hiral Castaneda - [...] Implant Name Type Inv. Item Serial No. Foreign Exchange Position Clerk Lot No. LRB No. Used Action BIT 5MM LARGE 300MM 2.9MM DRILL LARGE QUICK COUPLING CANNULATED NONSTERILE - [id number] Bit BIT 5MM LARGE 300MM 2.9MM DRILL LARGE QUICK COUPLING CANNULATED NONSTERILE [employer] [place] 1 SCREW 7.3MM 8.2MM 4MM PARTIAL THREAD STAINLESS STEEL 90MM 32MM BONE - [id number] Screw SCREW 7.3MM 8.2MM 4MM PARTIAL THREAD STAINLESS STEEL 90MM 32MM BONE [employer] [place] Right 1 Implanted SCREW 7.3MM 8.2MM 4MM PARTIAL THREAD STAINLESS STEEL 85MM 32MM BONE - [id number] Screw SCREW 7.3MM 8.2MM 4MM PARTIAL THREAD STAINLESS STEEL 85MM 32MM BONE SYNTHES TRAUMA Right 1 Implanted SCREW 7.3MM STAINLESS STEEL 90MM 16MM BONE CANNULATED NONSTERILE CANNULATED - [id number] Screw SCREW 7.3MM STAINLESS STEEL 90MM 16MM BONE CANNULATED NONSTERILE CANNULATED [employer] [place] Right 1 Implanted GUIDEWIRE 2.8MM STAINLESS STEEL 300MM ORTHOPEDIC TROCAR THREAD 7.3MM - [id number] Wire GUIDEWIRE 2.8MM STAINLESS STEEL 300MM ORTHOPEDIC [...] PGY-4 October 17, 2019 5:05 PM Pager: [phone] [facility] CASE MGT INIT INESon 2019 CASE MGT INIT [facility] HNO ID: [id number] Author: Jennifer Garvin (Sw) Service: Care Management Author Type: Brass Pickler Type: Care Mgt Initial Assessment Filed: 10/17/2019 10:07 AM Note Text: CARE MANAGEMENT: ASSESSMENT AND DISCHARGE PLAN SERVICE DATE: October 17, 2019 SERVICE TIME: 1000 PRIMARY CARE PHYSICIAN: Rachel Rayo MD ADMISSION STATUS: Inpatient Needs Prior to Discharge: OT/PT Evaluation MEDICAL: ELIER QUINTANA 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 Last discharge within 30 days: No Advance Directive: Current Advance Directive: None Nurse Instructor Attempted to Assist with AD Completion: Yes [...] Completely I feel financially burdened by my diz-ea-piohfh expenses for my prescription medication:: 0 - Disagree Completely Risk Score: 0 Patient is categorized as: Low risk < 2 Are you interested in bedside delivery of your medications? No Is Patient Psychosocially Complex?: No ASSESSMENT AND PLAN: Medical Needs: Medical Needs: Two or more chronic diseases Psychosocial Needs: Psychosocial Needs: None FREEDOM OF CHOICE EXPLAINED: [place] of Choice Given: No Reason Not Given: No placements necessary POTENTIAL TRANSITION PLANS Home Pt from home with spouse. Pt IND, +DME, +PCP, +rx coverage. 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 Rx coverage at [facility]. Plan for surgery today. Plan for home at discharge. SIGNATURE: EDI Neri PATIENT NAME: Velia Bagley DATE: October 17, 2019 TIME: 10:05 AM PAGER/CONTACT #: [phone] [facility] CONSULTon 10-17-2019 CONSULT HNO ID: [id number] Author: Jaskaran Mcdonnell MD Service: Hospital Medicine Author Type: Physician Type: Consults Filed: 10/17/2019 1:35 AM Note Text: DEPARTMENT OF HOSPITAL MEDICINE INITIAL CONSULT SERVICE DATE: 10/17/2019 SERVICE TIME: 1:21 AM Primary Care Physician: Rachel Rayo MD NIGHT AND WEEKEND COVERAGE: From 7am - 7pm, please call sound After 7pm, please call cross cover pager #[phone] REASON FOR CONSULT: preop evaluation REQUESTING PHYSICIAN: [...] Heart Failure Father 72 of CHF. 2 [place] before that - Parkinson?s Disease Father 68 [...] act. (4 mg/mL) nasal spray, Use 1 Centerpoint in the nose as needed. Use in [...] - Iodine Anaphylaxis - Penicillins Rash - [place] Oil Unknown - Propranolol Other: See Comments [...] TIME: 1:21 AM PAGER/CONTACT #: [phone] [facility] ED NOTEon 10-17-2019 ED NOTE HNO ID: [id number] Author: Nay (Rn) BULL Hicks Service: Nursing Author Type: Registered Nurse Type: ED Notes Filed: 10/16/2019 10:33 PM Note Text: Rapid Covid-19 swab taken to customer training specialist desk to be delivered to lab. [facility] ED NOTE HNO ID: [id number] Author: Nay HarperRn) BULL Hicks Service: Nursing Author Type: Registered Nurse Type: ED Notes Filed: 10/16/2019 10:33 PM Note Text: Type and Screen sent to lab. [facility] ED PROV NOTEon 10-17-2019 ED PROV NOTE HNO ID: [id number] Author: Tisha Peña MD Service: Emergency Medicine [...] Pupils equal round reactive to light. Normal vjvsph-sv-nxnx. Oropharynx pink moist clear. Heart regular rate [...] VS. Tisha Peña MD 10/16/19 2345 Normal [facility] HISTORY PHYSICALon 0 HISTORY PHYSICAL HNO ID: [id number] Author: Hiral De Santiago Service: Orthopaedic Surgery [...] Grass Pollen; Indocin [Indomethacin Sodium]; Iodine; Penicillins; Gos[place] Oil; Propranolol; Sulfa (Sulfonamide Antibiotics); Valium [Diazepam] [...] act. (4 mg/mL) nasal spray Use 1 Centerpoint in the nose as needed. Use in [...] tomorrow for total hip arthroplasty - Consult [facility] medicine for perioperative optimization, medical management - [...] MD 10:35 PM October 16, 2019 Normal [facility] NURSING PROGon 10-17-2019 NURSING PROG HNO ID: [id number] Author: Jo (Rn) BULL Onofre Service: ? Author Type: Registered Nurse Type: Nursing Progress Note Filed: 10/17/2019 5:34 PM Note Text: Dr. Yun Fernando in room doing fascia illiaca block on the right side. 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 Closed displaced fracture of right femoral neck*10/16/2019 Encounter Status:Closed by PAYAL BARAJAS CNP on 10/17/19 [facility] OPERATIVE NOon 10-17-2019 OPERATIVE NO HNO ID: [id number] Author: Hiral Castaneda Service: Orthopaedic Surgery Author Type: Physician Type: Operative Report Filed: 10/17/2019 5:50 PM Note Text: OPERATIVE REPORT LOG ID: [id number] Surgery/Procedure Date: 10/17/2019 Incision/Procedure Start Time: 4:15 PM Incision Close/Procedure End Time: 5:00 PM Surgeon(s)/Proceduralist (s) and Small Animal Veterinarian(s): Surgeon(s) and Role: * Hiral Castaneda - [...] checked with the image intensifier utilizing a Hawthorne technique firming proper placement hardware and reduction [...] Implant Name Type Inv. Item Serial No. Foreign Exchange Position Clerk Lot No. LRB No. Used Action BIT 5MM LARGE 300MM 2.9MM DRILL LARGE QUICK COUPLING CANNULATED NONSTERILE - [id number] Bit BIT 5MM LARGE 300MM 2.9MM DRILL LARGE QUICK COUPLING CANNULATED NONSTERILE [employer] [facility] 1 SCREW 7.3MM 8.2MM 4MM PARTIAL THREAD STAINLESS STEEL 90MM 32MM BONE - [id number] Screw SCREW 7.3MM 8.2MM 4MM PARTIAL THREAD STAINLESS STEEL 90MM 32MM BONE [employer] [place] Right 1 Implanted SCREW 7.3MM 8.2MM 4MM PARTIAL THREAD STAINLESS STEEL 85MM 32MM BONE - [id number] Screw SCREW 7.3MM 8.2MM 4MM PARTIAL THREAD STAINLESS STEEL 85MM 32MM BONE SYNTHES TRAUMA Right 1 Implanted SCREW 7.3MM STAINLESS STEEL 90MM 16MM BONE CANNULATED NONSTERILE CANNULATED - [id number] Screw SCREW 7.3MM STAINLESS STEEL 90MM 16MM BONE CANNULATED NONSTERILE CANNULATED [employer] [place] Right 1 Implanted GUIDEWIRE 2.8MM STAINLESS STEEL 300MM ORTHOPEDIC TROCAR THREAD 7.3MM - [id number] Wire GUIDEWIRE 2.8MM STAINLESS STEEL 300MM ORTHOPEDIC TROCAR THREAD 7.3MM [employer] [place] Right 4 Implanted Complications: None, patient tolerated procedure well. Participation in Procedure: I/primary surgeon/proceduralist performed the procedure with assistance. SIGNATURE: Hiral Castaneda MD PATIENT NAME: Velia Bagley DATE: October 17, 2019 TIME: 5:44 PM PAGER/CONTACT #: [facility] PROGRESSon 10-17-2019 PROGRESS HNO ID: [id number] Author: Jayant Srivastava MD Service: Orthopaedic Surgery [...] OR todayfor total hip arthroplasty - Consult [facility] medicine for perioperative optimization, medical management - [...] Surgery Pager: [phone] 10/17/2019 6:17 AM [facility] PT EDon 10-17-2019 PT ED HNO ID: [id number] Author: Meka (Rn) BULL Barajas Service: ? [...] RN In Department: AK SURGERY OR Normal [facility] TRINIDAD Fraser 19on 10-17-2019 Rapid, COVID 19 Negative Normal Negative [facility] Comment on above: Result Comment: This test has been authorized by the FDA under an Emergency Use Authorization (EUA). Performed By: #### R COVD #### [facility] [address] [place] [address] Type and Screenon 10-17-2019 ABO group Nom (Bld) O Normal [facility] Comment on above: Performed By: #### R COVD #### [place] [address] Comment See Below Normal [facility] Comment on above: Result Comment: Scre en &/or Xmatch expires in 3 days at 12 midnight. Redraw patient at that time. Performed By: #### R COVD #### [place] [address] RH Type Positive Normal [facility] Comment on above: Performed By: #### R COVD #### [place] [address] Urinalysis, reflexon 020 Reflex Comment see below Normal [facility] Comment on above: Result Comment: Refl ex to culture is not indicated based on established laboratory criteria. Performed By: #### U RIN2 #### [place] [address] Bacteria LM.HPF (Urine sed) [#/Area] NONE Normal None [facility] Comment on above: Performed By: #### U RIN2 #### [place] [address] Ep Cells Urine 0.3 /hpf Normal 0.0-5.0 [facility] Comment on above: Performed By: #### U RIN2 #### [place] [address] Hyaline Cast 0.3 /lpf Normal 0.0-1.0 [facility] Comment on above: Performed By: #### U RIN2 #### [place] [address] RBC LM.HPF (Urine sed) [#/Area] 0.1 /[HPF] Normal 0.0-5.0 [facility] Comment on above: Performed By: #### U RIN2 #### [facility] [address] [place] [address] WBC, reflex 1.10 /hpf Normal 0.00-5.00 [facility] Comment on above: Performed By: #### U RIN2 #### [facility] [address] [place] [address] Appearance (U) CLEAR Normal [facility] Comment on above: Performed By: #### U RIN2 #### [facility] [address] [place] [address] Bilirubin (U) [Mass/Vol] Negative Normal Negative [facility] Comment on above: Performed By: #### U RIN2 #### [place] [address] Color (U) YELLOW Normal [facility] Comment on above: Performed By: #### U RIN2 #### [facility] [address] [place] [address] Glucose Ql (U) Negative Normal Negative [facility] Comment on above: Performed By: #### U RIN2 #### [place] [address] Hemoglobin,Urine Negative Normal Negative [facility] Comment on above: Performed By: #### U RIN2 #### [place] [address] Ketone Urine Negative Normal Negative [facility] Comment on above: Performed By: #### U RIN2 #### [place] [address] Leukocyte esterase Test strip Ql (U) Negative Normal Negative [facility] Comment on above: Performed By: #### U RIN2 #### [place] [address] Nitrite reflex Negative Normal Negative [facility] Comment on above: Performed By: #### U RIN2 #### [place] [address] pH (U) 6.5 [pH] Normal 5.0-8.0 [facility] Comment on above: Performed By: #### U RIN2 #### [facility] [address] [place], [place] [address] Protein (U) [Mass/Vol] Negative Normal Negative [facility] Comment on above: Performed By: #### U RIN2 #### [facility] [address] [place], [place] [address] Specific [place], Ur 1.015 Normal 1.005-1.030 [facility] Comment on above: Performed By: #### U RIN2 #### [facility] [address] [place], [place] [address] Urobilinogen,Ur 1.0 EU/dL Normal 0.2-1.0 [facility] Comment on above: Performed By: #### U RIN2 #### [facility] [address] [place], [place] [address] XR HIP 2V AP/LAT RTon 2019 XR [...] ORIF of the right femoral neck fracture. Manager Front Office: PSCB Transcribe Date/Time: Oct 17 2019 5:59P Dictated by : RICH BORJAS MD This examination was interpreted and the report reviewed and electronically signed by: RICH BORJAS MD on Oct 17 2019 6:06PM EST Normal [facility] XR PELVIS 1V APon 10-17-2019 XR [...] ORIF of the right femoral neck fracture. Manager Front Office: PSCB Transcribe Date/Time: Oct 17 2019 5:59P Dictated by : RICH BORJAS MD This examination was interpreted and the report reviewed and electronically signed by: RICH BORJAS MD on Oct 17 2019 6:06PM EST Normal [facility] Activated PTTon 10-16-2019 aPTT Coag (Bld) [Time] 23.2 s Normal 23.0-32.4 [facility] Comment on above: Result Comment: Unfr [...] laboratory APTT reagent in use throughout the [facility]. Performed By: #### A PTT #### [facility] [address] [place], [place] [address] Basic Metabolic Panelon 10-02 Anion gap [Moles/Vol] 10 mmol/L Normal 9-18 [facility] Comment on above: Performed By: #### U RIN2 #### [facility] [address] [place], [place] [address] Calcium [Mass/Vol] 8.6 mg/dL Normal 8.5-10.2 [facility] Comment on above: Performed By: #### U RIN2 #### [facility] [address] [place], [place] [address] Chloride [Moles/Vol] 110 mmol/L High 97-105 [facility] Comment on above: Performed By: #### U RIN2 #### [facility] [address] [place], [place] [address] CO2 Blood 21 mmol/L Low 22-30 [facility] Comment on above: Performed By: #### U RIN2 #### [facility] [address] [place], [place] [address] Creatinine [Mass/Vol] 0.94 mg/dL Normal 0.73-1.22 [facility] Comment on above: Performed By: #### U RIN2 #### [facility] [address] [place], [place] [address] Glucose [Mass/Vol] 104 mg/dL High 74-99 [facility] Comment on above: Result Comment: The [place] Diabetes Association (ADA) provides guidance for cutoff [...] Standards of Medical Care in Diabetes 2016; [place] [employer]. Diabetes Care. 2016;39(Suppl 1). Performed By: #### U RIN2 #### [facility] [address] [place], [place] [address] Potassium [Moles/Vol] see below Normal 3.7-5.1 [facility] Comment on above: Result Comment: Unab le to assay. Specimen Hemolyzed Performed By: #### U RIN2 #### [facility] [address] [place], [place] [address] Sodium [Moles/Vol] 141 mmol/L Normal 136-144 [facility] Comment on above: Performed By: #### U RIN2 #### [facility] [address] [place], [place] [address] Urea nitrogen [Mass/Vol] 16 mg/dL Normal 9-24 [facility] Comment on above: Performed By: #### U RIN2 #### [facility] [address] [place], [place] [address] ED NOTEon 10-16-2019 ED NOTE HNO ID: [id number] Author: Nay (Rn) BULL Alvarado Service: ? Author Type: Registered Nurse Type: ED Notes Filed: 10/16/2019 8:07 PM Note Text: Bed: 16-ED Expected date: Expected time: Means of arrival: Comments: Med 2, fall Normal [facility] ED PROV NOTEon 10-16-2019 ED PROV NOTE HNO ID: [id number] Author: Tisha Peña MD Service: Emergency Medicine [...] Heart Failure Father 72 of CHF. 2 [place] before that - Parkinson?s Disease Father 68 [...] - Iodine Anaphylaxis - Penicillins Rash - Goshen Oil Unknown - Propranolol Other: See Comments [...] femoral neck fracture in severe varus alignment. Manager Front Office: HOLLY Transcribe Date/Time: Oct 16 2019 9:50P Dictated by : RONI MARVIN MD This examination was interpreted and the report reviewed and electronically signed by: RONI MARVIN MD on Oct 16 2019 9:53PM EST XR FEMUR GENERAL 2V AP/LAT RT Final Result IMPRESSION: Acute right femoral neck fracture in severe varus alignment. Manager Front Office[facility] Transcribe Date/Time: Oct 16 2019 9:50P Dictated [...] Resident 10/17/19 0106 Tisha Peña MD 10/21/19 8354 Normal [facility] HOSPon 10-16-2019 HOSP Patient:Velia Bagley MRN: Height:5' [...] [G56.00] Cervicalgia [M54.2] Myalgia and myositis, unspecified [AAS3951] Iron deficiency anemia [D50.9] Weakness [R53.1] Lymphadenopathy [R59.1] Closed displaced fracture of right femoral neck (HCC) [S72.001A] Allergies: Avocado Baclofen Candasartan [Other] Chocolate Ciprofloxacin (Bulk) Grass Pollen Indocin [Indomethacin Sodium] Iodine Penicillins Gos[place] Oil Propranolol Sulfa (Sulfonamide Antibiotics) Valium [Diazepam] [...] Cosign Needed ED Provider Note Patient Name: Velai Bagley SERVICE DATE: 10/16/19 History Patient presents [...] Heart Failure Father 72 of CHF. 2 [place] before that - Parkinson?s Disease Father 68 [...] - Iodine Anaphylaxis - Penicillins Rash - Gos[place] Oil Unknown - Propranolol Other: See Comments [...] femoral neck fracture in severe varus alignment. Manager Front Office: [facility] Transcribe Date/Time: Oct 16 2019 9:50P Dictated by : RONI MARVIN MD This examination was interpreted and the report reviewed and electronically signed by: RONI MARVIN MD on Oct 16 2019 9:53PM EST XR FEMUR GENERAL 2V AP/LAT RT Final Result IMPRESSION: Acute right femoral neck fracture in severe varus alignment. Manager Front Office: [facility] Transcribe Date/Time: Oct 16 2019 9:50P [...] Grass Pollen; Indocin [Indomethacin Sodium]; Iodine; Penicillins; Gos[place] Oil; Propranolol; Sulfa (Sulfonamide Antibiotics); Valium [Diazepam] [...] act. (4 mg/mL) nasal spray Use 1 Centerpoint in the nose as needed. Use in [...] PM Signed Rapid Covid-19 swab taken to customer training specialist desk to be delivered to lab. [...] Pupils equal round reactive to light. Normal alhouo-mk-nbtb. Oropharynx pink moist clear. Heart regular rate [...] today. Normal VS. Tisha Peña MD 10/16/19 9581 Jaskaran Mcdonnell MD, MD 10/17/2019 1:35 AM Signed [facility] MEDICINE INITIAL CONSULT SERVICE DATE: 10/17/2019 SERVICE TIME: 1:21 AM Primary Care Physician: Rachel Rayo MD NIGHT AND WEEKEND COVERAGE: From 7am - 7pm, please call sound After 7pm, please call cross cover pager #[phone] REASON FOR CONSULT: preop evaluation REQUESTING PHYSICIAN: [...] Heart Failure Father 72 of CHF. 2 [place] before that - Parkinson?s Disease Father 68 [...] act. (4 mg/mL) nasal spray, Use 1 Centerpoint in the nose as needed. Use in [...] - Iodine Anaphylaxis - Penicillins Rash - Gos[place] Oil Unknown - Propranolol Other: See Comments [...] OR todayfor total hip arthroplasty - Consult [facility] for perioperative optimization, medical management - [...] RN 10/17/2019 8:19 AM Signed [facility]CI[facility]TH[facility] [employer] CONSULTANT PROGRESS NOTE SERVICE DATE: 10/17/2019 SERVICE TIME: 0810 Spoke to patient at bedside, he is doing ok, pain managed. Patient to OR today for RONALD. He is from home with son, lives in a ranch home, no steps to enter. Patient states he has a ww/cane/shower chair at home, plans to discharge home with the [facility], pending PT eval following surgery. I will continue to follow for needs, complete care guide given and explained. 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 Last discharge within 30 days: No Advance Directive: Current Advance Directive: None Nurse Instructor Attempted to Assist with AD Completion: Yes [...] Completely I feel financially burdened by my wus-di-pbvdfc expenses for my prescription medication:: 0 - Disagree Completely Risk Score: 0 Patient is categorized as: Low risk < 2 Are you interested in bedside delivery of your medications? No Is Patient Psychosocially Complex?: No ASSESSMENT AND PLAN: Medical Needs: Medical Needs: Two or more chronic diseases Psychosocial Needs: Psychosocial Needs: None FREEDOM OF CHOICE EXPLAINED: [place] of Choice Given: No Reason Not Given: No placements necessary POTENTIAL TRANSITION PLANS Home Pt from home with spouse. Pt IND, +DME, +PCP, +rx coverage. 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 Rx coverage at [facility]. Plan for surgery today. Plan for home at discharge. SIGNATURE: EDI Neri PATIENT NAME: Velia Bagley DATE: October 17, 2019 TIME: 10:05 AM PAGER/CONTACT #: [phone] Meka Barajas RN, RN 10/17/2019 12:04 PM [...] Heart Failure Father 72 of CHF. 2 [place] before that - Parkinson?s Disease Father 68 [...] - Iodine Anaphylaxis - Penicillins Rash - Gos[place] Oil Unknown - Propranolol Other: See Comments [...] October 17, 2019 TIME: 1:10 PM CSN: [id number] Mathew Yanez MD 10/17/2019 1:33 PM Incomplete [...] Heart Failure Father 72 of CHF. 2 [place] before that - Parkinson?s Disease Father 68 [...] 33.92 kg/(m2) Date 10/17/19699 - 10/18/19658 Shift 4164-9478 8491-8209 2926-9443 24 Hour Total INTAKE Shift Total OUTPUT Urine 800 800 Shift Total 800 800 Weight (kg) 104.2 104.2 104.2 104.2 Date 10/16/19699 - 10/17/1965810/17/19699 - 10/18/1958 Shift 3463-2956 4332-3320 0230-7941 24 Hour Total 9938-7454 8300-4196 5168-1281 24 Hour Total INTAKE Shift Total OUTPUT [...] to spinal stenosis Mathew Yanez M.D. Normal [facility] Hemogram/Diffon 10-16-2019 Abs Immature Grans 0.09 thou/cmm High 0.00-0.05 [facility] Comment on above: Performed By: #### R COVD #### [place] [address] Abs Neut (ANC) 3.73 thou/cmm Normal 1.78-5.38 [facility] Comment on above: Performed By: #### R COVD #### [place] [address] Abs. Baso 0.01 thou/cmm Normal 0.01-0.08 [facility] Comment on above: Performed By: #### R COVD #### [place] [address] Abs. [place] 0.31 thou/cmm Normal 0.30-0.82 [facility] Comment on above: Performed By: #### R COVD #### [place] [address] Basophils/100 WBC (Bld) 0.2 % Normal [facility] Comment on above: Performed By: #### R COVD #### [place] [address] Eosinophils (Bld) [#/Vol] 0.00 thou/cmm Low 0.04-0.54 [facility] Comment on above: Performed By: #### R COVD #### [place] [address] Eosinophils/100 WBC (Bld) 0.0 % Normal [facility] Comment on above: Performed By: #### R COVD #### [facility] [address] [place] [address] Erythrocyte distribution width (RBC) [Ratio] 16.0 % High 11.6-14.4 [facility] Comment on above: Performed By: #### R COVD #### [facility] [address] [place] [address] Hematocrit (Bld) [Volume fraction] 41.4 % Normal 40.1-51.0 [facility] Comment on above: Performed By: #### R COVD #### [facility] [address] [place] [address] Hemoglobin (Bld) [Mass/Vol] 13.5 g/dL Low 13.7-17.5 [facility] Comment on above: Performed By: #### R COVD #### [facility] [address] [place] [address] Immature Grans 1.70 % Normal [facility] Comment on above: Performed By: #### R COVD #### [facility] [address] [place] [address] Lymphocytes (Bld) [#/Vol] 1.14 thou/cmm Normal 0.84-2.85 [facility] Comment on above: Performed By: #### R COVD #### [place] [address] Lymphocytes/100 WBC (Bld) 21.6 % Normal [facility] Comment on above: Performed By: #### R COVD #### [facility] [address] [place] [address] MCH (RBC) [Entitic mass] 29.3 pg Normal 25.7-32.2 [facility] Comment on above: Performed By: #### R COVD #### [facility] [address] [place] [address] MCHC (RBC) [Mass/Vol] 32.6 % Normal 32.3-36.5 [facility] Comment on above: Performed By: #### R COVD #### [facility] [address] [place] [address] MCV (RBC) [Entitic vol] 89.8 fL Normal 83.2-95.6 [facility] Comment on above: Performed By: #### R COVD #### [facility] [address] [place], [place] [address] Monocytes/100 WBC (Bld) 5.9 % Normal [facility] Comment on above: Performed By: #### R COVD #### [facility] [address] [place], [place] [address] Platelet mean volume (Bld) [Entitic vol] 9.4 fL Normal 8.7-12.0 [facility] Comment on above: Performed By: #### R COVD #### [facility] [address] [place] [address] Platelets (Bld) [#/Vol] 196 thou/cmm Normal 141-365 [facility] Comment on above: Performed By: #### R COVD #### [place] [address] RBC (Bld) [#/Vol] 4.61 mil/cmm Low 4.63-6.08 [facility] Comment on above: Performed By: #### R COVD #### [facility] [address] [place] [address] RDW SD 51.8 fl High 36.1-45.8 [facility] Comment on above: Performed By: #### R COVD #### [place] [address] Seg Neutrophil 70.6 % Normal [facility] Comment on above: Performed By: #### R COVD #### [facility] [address] [place], [place] [address] WBC (Bld) [#/Vol] 5.28 thou/cmm Normal 4.23-9.07 [facility] Comment on above: Performed By: #### R COVD #### [facility] [address] [place] [address] Protimeon 10-16-2019 INR Coag (PPP) [Relative time] 0.98 {INR} Normal 0.90-1.30 [facility] Comment on above: Result Comment: Danielle min K Antagonist (VKA) Therapeutic Range: INR 2 to 3 (Target INR of 2.5) Note: For patients treated with VKA drugs, such as warfarin, the [place] [employer] 2012 Guideline recommends [...] Chest 2012; 141:7S-47S Jimbo BARKER et al. [facility] 2017; 70: 252-289 Performed By: #### B MP #### [facility] [address] [place] [address] PT Coag (PPP) [Time] 10.6 s Normal 9.7-13.0 [facility] Comment on above: Performed By: #### B MP #### [facility] [address] [place] [id number] XR FEMUR 2V AP/LAT RTon 10-02 XR [...] femoral neck fracture in severe varus alignment. Manager Front Office: HOLLY Transcribe Date/Time: Oct 16 2019 9:50P Dictated by : RONI MARVIN MD This examination was interpreted and the report reviewed and electronically signed by: RONI MARVIN MD on Oct 16 2019 9:53PM EST Normal [facility] XR PELVIS 1V APon 10-16-2019 [...] femoral neck fracture in severe varus alignment. Manager Front Office: HOLLY Transcribe Date/Time: Oct 16 2019 9:50P Dictated by : RONI MARVIN MD This examination was interpreted and the report reviewed and electronically signed by: RONI MARVIN MD on Oct 16 2019 9:53PM EST Normal [facility] XR CHEST STANDARD (2 VW)on 0 07-15-[address] able cardiomegaly [facility], [place] EXAMINATION: TWO XRA Y VIEWS OF THE CHEST 07/15/2019 10:59 am COMPARISON: 05/07/2019 HISTORY: ORDERING SYSTEM PROVIDED HISTORY: Recurrent aspiration pneumonia (HCC) TECHNOLOGIST PROVIDED HISTORY: pneumonia RUL FINDINGS: The lungs are without acute focal process. There is no effusion or pneumothorax. The cardiomediastinal silhouette is stable. The osseous structures are stable. [facility] [place], [place] Incoming Radiant Results From [employer] - 07/15/2019 11:12 AM EDT EXAMINATION: TWO XRAY VIEWS OF THE CHEST 07/15/2019 10:59 am COMPARISON: 05/07/2019 HISTORY: ORDERING SYSTEM PROVIDED HISTORY: Recurrent aspiration pneumonia (HCC) TECHNOLOGIST PROVIDED HISTORY: pneumonia RUL FINDINGS: The lungs are without acute focal process. There is no effusion or pneumothorax. The cardiomediastinal silhouette is stable. The osseous structures are stable. IMPRESSION: No acute process. Stable cardiomegaly [facility] [place] Cult,Mycobacteriaon 05-16-19 20 Cult,Mycobacteria Specimen Description .BRONCHIAL ALVEOLAR LAVAGE .RIGHT MIDDLE LOBE Special Requests NOT REPORTED Direct Exam NO ACID FAST BACILLI SEEN (DIRECT SMEAR) NO ACID FAST BACILLI SEEN (CONCENTRATED SMEAR) Culture NO GROWTH 44 DAYS Report Status FINAL 05/16/2019 Normal [facility] Comment on above: Performed By: #### A FC #### [employer] [address] [place] [address] Grease Maker: Alexander Crowder MD [place] MODIFIED BARIUM SWALLOW W VIDEOOrdered By: Mychal Bautista on 05-16-2019 Transient laryngeal penetration with thin liquids but no tracheal aspiration. Please see separate speech pathology report for full discussion of findings and recommendations. [employer] Phone: EXAMINATION: MODIFIE D BARIUM SWALLOW WAS [...] with thin liquids only. No tracheal aspiration. [employer] Phone: [place], [place] Incoming Radiant Results From [employer] - 05/16/2019 3:10 PM EST EXAMINATION: MODIFIED [...] for full discussion of findings and recommendations. [employer] Phone: Cult,Funguson 04-11-2019 Cult,Fungus Specimen Description .BRONCHIAL ALVEOLAR LAVAGE .RIGHT MIDDLE LOBE Special Requests NOT REPORTED Culture YEAST ISOLATED, ID TO FOLLOW NINA ALBICANS NINA GLABRATA Report Status FINAL 04/11/2019 Normal [facility] Comment on above: Performed By: #### F C #### [employer] [facility] [place] [address] Grease Maker: Alexander Crowder MD Viral Respiratory Culton Viral [...] at day 5 Report Status FINAL 04/07/2019 [facility] Comment on above: Performed By: #### V RESPC #### [employer] [facility] [place] [address] Grease Maker: Alexander Crowder MD CT Chest W [place] 2018 1. Resolving lateral segment middle lobe consolidative density. Residual density may represent subsegmental atelectasis or residual of prior pneumonitis. 2. Trace bilateral pleural effusion. [facility] [place] EXAM[place]ATION: CT OF T HE CHEST [...] superficial soft tissues show no significant abnormalities. [place], [place], pn Incoming Radiant Results From [employer] - 04/06/2019 3:03 PM EST EXAMINATION: CT [...] prior pneumonitis. 2. Trace bilateral pleural effusion. [place], [place] Lipid Panelon 04-06-2019 Cholesterol [Mass/Vol] 170 mg/dL <200 [place], [place] Comment on above: Cholesterol Guidelines: <200 Desirable 200-240 Borderline >240 Undesirable Cholesterol in HDL [Mass/Vol] 68 mg/dL >40 [place], [place] Comment on above: HDL Guidelines: <40 Undesirable 40-59 Borderline >59 Desirable Cholesterol in LDL [Mass/Vol] 77 mg/dL 0 - 130 mg/dL [place], [place] Comment on above: LDL Guidelines: <100 Desirable 100-129 Near to/above Desirable 130-159 Borderline >159 Undesirable Direct (measured) LDL and calculated LDL are not interchangeable tests. Cholesterol in VLDL [Mass/Vol] NOT REPORTED 1 - 30 mg/dL [place], [place] Cholesterol.total/Cho lesterol in HDL [Mass ratio] 2.5 {ratio} <5 [place], [place] Triglyceride [Mass/Vol] 124 mg/dL <150 [place], [place] Comment on above: Triglyceride Guidelines: <150 [...] Trimethoprim/Sulfa <=10 SUSCEPTIBLE Vancomycin <=0.5 SUSCEPTIBLE Normal [facility] Comment on above: Performed By: #### R ESPC #### [facility] [address] [place] [address] [id number] Grease Maker: Alexander Crowder MD [employer] Stainon 04-01-2019 Direct Exam DUPLICATE ORDER [place], [place] Special Requests NOT REPORTED [place], [place] Specimen Description .BRONCHIAL ALVEOLAR LAVAGE .RIGHT MIDDLE LOBE [facility] Non-Workers Compensation Adjuster Cytologyon 9 [place]: [id number] Normal [facility] Comment on above: Performed By: #### N CATH LAB MANAGER #### [facility] [address] [place] [address] [id number] Grease Maker: Alexander Crowder MD Specimen Description .BRONCHIAL ALVEOLAR LAVAGE Normal [facility] Comment on above: Result Comment: .RIG HT MIDDLE LOBE Performed By: #### N CATH LAB MANAGER #### [facility] [address] [place] [address] [phone] Grease Maker: Alexander Crowder MD Stain,Acid-faston 04-01-2019 Stain,Acid-fast Specimen Description .BRONCHIAL ALVEOLAR LAVAGE .RIGHT MIDDLE LOBE Special Requests NOT REPORTED Direct Exam DUPLICATE ORDER AN ACID FAST SMEAR SHOULD NEVER BE ORDERED IF AN ACID FAST CULTURE IS ALSO ORDERED THE SMEAR IS ALWAYS INCLUDED WITH THE CULTURE Report Status FINAL 04/01/2019 Normal [facility] Comment on above: Performed By: #### A FS #### [facility] [employer] [address] [place] [address] [phone] Grease Maker: Alexander Crowder MD Surgical Pathologyon 019 Surgical Pathology (NOTE) [id number] CONSULTING PATHOLOGISTS [place] [facility] ANATOMIC PATHOLOGY [address] [place] [id number] SURGICAL PATHOLOGY CONSULTATION Patient Name: VELIA BAGLEY [facility] Rec: [id number] Path Number: [id number] Collected: 04/01/2019 Received: 04/01/2019 Reported: 04/04/2019 16:50 -- Diagnosis -- BRONCHOALVEOLAR LAVAGE (RML): - NO MORPHOLOGIC PNEUMOCYSTIS DETECTED. - SMALL NUMBERS OF FUNGAL YEASTS NOTED. - NO VIRAL INCLUSIONS OR NEOPLASTIC CELLS DETECTED. - NO INCREASED SIDEROPHAGES DETECTED. Viviana Crowder M.D. Electronically Signed Out [facility]/04/04/2019 Source of Specimen 1: BAL OF [...] results telephoned to Dr. Fulton, 04/01/2019, 1827 ([facility]). Normal [facility] Comment on above: Performed By: #### P PPVS #### [facility] [employer] [address] [place] [address] Grease Maker: Alexander Crowder MD Ammoniaon 03-22-2019 Ammonia (P) [Mass/Vol] 29 umol/L 16 - 60 umol/L [place], [place] Comprehensive Metabolic Pane nanette 03-22-2019 Albumin [Mass/Vol] 4.1 g/dL 3.5 - 5.2 g/dL [place] Albumin/Globulin [Mass ratio] 1.5 {ratio} [place] ALP [Catalytic activity/Vol] 143 U/L High 40 - 129 U/L [place] ALT [Catalytic activity/Vol] 8 U/L 5 - 41 U/L [place] Anion gap [Moles/Vol] 13 mmol/L 9 - 17 mmol/L [place] AST [Catalytic activity/Vol] 9 U/L <40 [place] Bilirubin Ql (U) 0.28 mg/dL Low 0.3 - 1.2 mg/dL [place] Bun/Cre Ratio 13 [place] Calcium [Mass/Vol] 8.8 mg/dL 8.6 - 10. 4 mg/dL [place] Chloride [Moles/Vol] 105 mmol/L 98 - 10 7 mmol/L [place] CO2 [Moles/Vol] 20 mmol/L 20 - 31 mmol/L [place] Creatinine [Mass/Vol] 1.01 mg/dL 0.7 - 1.2 mg/dL [place] GFR >60 >60 mL/min [place] GFR Non- >60 >60 mL/min [place] Glucose [Mass/Vol] 142 mg/dL High 70 - 99 mg/dL [place] Interpretation and review of laboratory results Abnormal [place] Potassium [Moles/Vol] 3.7 mmol/L 3.7 - 5.3 mmol/L [place] Protein [Mass/Vol] 6.8 g/dL 6.4 - 8.3 g/dL [place] Sodium [Moles/Vol] 138 mmol/L 135 - 144 mmol/L [place] Urea nitrogen [Mass/Vol] 13 mg/dL 6 - 20 mg/dL [place] Metabolic Panelon 03-22-2019 GFR/1.73 sq M predicted among non-blacks MDRD (S/P/Bld) [Vol rate/Area] [place] Comment on above: Stage 1: Some [...] body mass. Additional eGFR calculator available at: http://www.Palkion.Yast/multiple_crcl_2012.htm XR CHEST STANDARD (2 VW)on 05-22-2018 Persistent right mid dle lobe opacity. CT chest with contrast is recommended for further evaluation. Quotations BookPRESLEY EXAMINATION: TWO XRA Y VIEWS OF THE [...] effusion or pneumothorax. No acute osseous abnormality. Bufys Layton, Mhpn Incoming Radiant Results From [employer] - 03/22/2019 3:14 PM EST EXAMINATION: TWO [...] with contrast is recommended for further evaluation. [facility] NervogridFREEMAN NEOSHO HOSPITALPRESLEY XR CHEST STANDARD (2 VW)on 0 01-12-2019 Right middle lobe pneumonia. Follow-up is recommended to confirm complete resolution. Quotations BookPRESLEY EXAMINATION: TWO XRA Y VIEWS OF THE [...] abnormality. No significant pleural effusions are seen. Quot[employer] Book [employer] Layton, Mhpn Incoming Radiant Results From [employer] - 01/12/2019 3:08 PM EDT EXAMINATION: TWO [...] Follow-up is recommended to confirm complete resolution. [place] Basic Metabolic Panelon 12-03 Anion gap [Moles/Vol] 13 mmol/L 9 - 17 mmol/L [place] Bun/Cre Ratio 19 [place] Calcium [Mass/Vol] 8.7 mg/dL 8.6 - 10. 4 mg/dL [place] Chloride [Moles/Vol] 108 mmol/L High 98 - 10 7 mmol/L [place] CO2 [Moles/Vol] 20 mmol/L 20 - 31 mmol/L [place] Creatinine [Mass/Vol] 0.99 mg/dL 0.7 - 1.2 mg/dL [place] GFR >60 >60 mL/min [place] GFR Non- >60 >60 mL/min [place] Glucose [Mass/Vol] 97 mg/dL 70 - 99 mg/dL [place] Interpretation and review of laboratory results Abnormal [place] Potassium [Moles/Vol] 3.7 mmol/L 3.7 - 5.3 mmol/L [place] Sodium [Moles/Vol] 141 mmol/L 135 - 144 mmol/L [place] Urea nitrogen [Mass/Vol] 19 mg/dL 6 - 20 mg/dL [place] Brain Natriuretic Peptideon 12-26-2018 Natriuretic peptide B (Bld) [Mass/Vol] Pro-BNP Reference Range: [place], [place] Comment on above: Rule Out: <300 Denise Zone: Age <50 300-450 Age 50-75 300-900 Age >75 300-1800 Usually represents mild to moderate HF but other cardiopulmonary causes cannot be ruled out. Rule In: Age <50 >450 Age 50-75 >900 Age >75 >1800 Natriuretic peptide B (Bld) [Mass/Vol] 149 pg/mL <300 [place] Comment on above: Pro-BNP results patricia ot be compared to BNP results. CBC Auto Differentialon 12-03 Basophils (Bld) [#/Vol] 0.03 10*3/uL [place] Basophils/100 WBC (Bld) 0 % 0 - 2 % [place] Differential Type NOT REPORTED [place] Eosinophils (Bld) [#/Vol] 10*3/uL [place] Eosinophils/100 WBC (Bld) 0 % Low 1 - 4 % [place] Erythrocyte distribution width (RBC) [Ratio] 14.1 % 11.8 - 14.4 % [place] Hematocrit (Bld) [Volume fraction] 42.1 % 40.7 - 50.3 % [place] Hemoglobin (Bld) [Mass/Vol] 13.7 g/dL 13 - 17 g/dL [place] Immature granulocytes (Bld) [#/Vol] 2 % High 0 [place] Immature granulocytes (Bld) [#/Vol] 0.24 10*3/uL [place] Interpretation and review of laboratory results Abnormal [place] Lymphocytes (Bld) [#/Vol] 1.50 10*3/uL [place] Lymphocytes/100 WBC (Bld) 10 % Low 24 - 43 % [place] MCH (RBC) [Entitic mass] 29.3 pg 25.2 - 33.5 pg [place] MCHC (RBC) [Mass/Vol] 32.5 g/dL 28.4 - 34.8 g/dL [place] MCV (RBC) [Entitic vol] 90.1 fL 82.6 - 102.9 fL [place] Monocytes (Bld) [#/Vol] 0.90 10*3/uL [place] Monocytes/100 WBC (Bld) 6 % 3 - 12 % [place] Platelet mean volume (Bld) [Entitic vol] 8.9 fL 8.1 - 13.5 fL [place] Platelets (Bld) [#/Vol] 240 10*3/uL [place] Platelets (Bld) [#/Vol] NOT REPORTED [place] RBC (Bld) [#/Vol] 4.67 10*6/uL 4.21 - 5.7 7 m/uL [place] RBC morphology finding Nom (Bld) NOT REPORTED [place] Segmented neutrophils/100 WBC (Bld) 83 % High 36 - 65 % [place] Segs Absolute 12.93 High [place] WBC (Bld) [#/Vol] 0.0 10*3/uL 0.0 per 10 0 WBC [place] WBC (Bld) [#/Vol] 15.6 10*3/uL [place] WBC Morphology NOT REPORTED [place], [place] Lactate, Sepsison 12-26-2018 Lactic Acid, Sepsis 1.5 mmol/L 0.5 - 1. 9 mmol/L [place] Lactic Acid, Sepsis, Whole Blood NOT REPORTED 0.5 - 1.9 mmol/L [place] Lactic Acid, Sepsis 1.3 mmol/L 0.5 - 1. 9 mmol/L [place] Lactic Acid, Sepsis, Whole Blood NOT REPORTED 0.5 - 1.9 mmol/L [place] Metabolic Panelon 12-26-2018 GFR/1.73 sq M predicted among non-blacks MDRD (S/P/Bld) [Vol rate/Area] [place] Comment on above: Average GFR for 50-5 9 years old: 93 mL/min/1.73sq m Chronic Kidney Disease: <60 mL/min/1.73sq m Kidney failure: <15 mL/min/1.73sq m eGFR calculated using average adult body mass. Additional eGFR calculator available at: http://www.3ROAM/multiple_crcl_2012.htm Stage 1: Some kidney damage normal GFR Stage 2: Mild kidney damage GFR 60-89 Stage 3: Moderate kidney damage GFR 30-59 Stage 4: Severe kidney damage GFR 15-29 Stage 5: Severe kidney damage GFR <15 ESRD - chronic treatment by dialysis or transplant Troponinon 12-26-2018 Troponin I.cardiac [Mass/Vol] [place] Comment on above: Reference Range: <0.03 [...] diagnosis. Troponin T.cardiac [Mass/Vol] ug/L <0.03 ng/mL [place] Comment on above: Troponin T results c annot be compared to Troponin-I results. Troponin, High Sensitivity NOT REPORTED 0 - 22 ng/L [place] XR CHEST PORTABLEon 12-27-19 19 Layton, Mhpn Incoming Radiant Results From [employer] - 12/26/2018 1:31 PM EDT EXAMINATION: ONE [...] cardiomegaly. No evidence for acute cardiopulmonary pathology. [place] Borderline cardiomeg natalia. No evidence for acute cardiopulmonary pathology. [place] EXAMINATION: ONE XRA Y VIEW OF [...] structures and soft tissues are grossly intact. [place] CBC Auto Differentialon 12-03 Basophils (Bld) [#/Vol] 10*3/uL [place] Basophils/100 WBC (Bld) 0 % 0 - 2 % [place] Differential Type NOT REPORTED [place] Eosinophils (Bld) [#/Vol] 10*3/uL [place] Eosinophils/100 WBC (Bld) 0 % Low 1 - 4 % [place] Erythrocyte distribution width (RBC) [Ratio] 13.9 % 11.8 - 14.4 % [place] Hematocrit (Bld) [Volume fraction] 42.5 % 40.7 - 50.3 % [place] Hemoglobin (Bld) [Mass/Vol] 13.6 g/dL 13 - 17 g/dL [place] Immature granulocytes (Bld) [#/Vol] 1 % High 0 [place] Immature granulocytes (Bld) [#/Vol] 0.19 10*3/uL [place] Interpretation and review of laboratory results Abnormal [place] Lymphocytes (Bld) [#/Vol] 1.05 10*3/uL Low [place] Lymphocytes/100 WBC (Bld) 8 % Low 24 - 43 % [place] MCH (RBC) [Entitic mass] 29.1 pg 25.2 - 33.5 pg [place] MCHC (RBC) [Mass/Vol] 32.0 g/dL 28.4 - 34.8 g/dL [place] MCV (RBC) [Entitic vol] 91.0 fL 82.6 - 102.9 fL [place] Monocytes (Bld) [#/Vol] 0.40 10*3/uL [place] Monocytes/100 WBC (Bld) 3 % 3 - 12 % [place] Platelet mean volume (Bld) [Entitic vol] 8.8 fL 8.1 - 13.5 fL [place] Platelets (Bld) [#/Vol] NOT REPORTED [place] Platelets (Bld) [#/Vol] 241 10*3/uL [place] RBC (Bld) [#/Vol] 4.67 10*6/uL 4.21 - 5.7 7 m/uL [place] RBC morphology finding Nom (Bld) NOT REPORTED [place] Segmented neutrophils/100 WBC (Bld) 88 % High 36 - 65 % [place] Segs Absolute 12.03 High [place] WBC (Bld) [#/Vol] 13.7 10*3/uL [place] WBC (Bld) [#/Vol] 0.0 10*3/uL 0.0 per 10 0 WBC [place] WBC Morphology NOT REPORTED [place] CT ABDOMEN PELVIS W IV CONTR AST Additional Contrast? Oralon 12-21-2018 Lymphocytes (Bld) [#/Vol] *No acute intra-abdominal process is noted. No inguinal lymphadenopathy. [place] EXAMINATION: CT OF [place] MORE ABDOMEN [...] acute findings. Osseous structures demonstrate degenerative change. [place], Mhpn Incoming Radiant Results From [employer] - 12/21/2018 3:11 PM EDT EXAMINATION: CT [...] intra-abdominal process is noted. No inguinal lymphadenopathy. [place] Comprehensive Metabolic Pane nanette 12-21-2018 Albumin [Mass/Vol] 4.2 g/dL 3.5 - 5.2 g/dL [place] Albumin/Globulin [Mass ratio] 1.6 {ratio} [place] ALP [Catalytic activity/Vol] 109 U/L 40 - 129 U/L [place] ALT [Catalytic activity/Vol] 10 U/L 5 - 41 U/L [place] Anion gap [Moles/Vol] 11 mmol/L 9 - 17 mmol/L [place] AST [Catalytic activity/Vol] 10 U/L <40 [place] Bilirubin Ql (U) 0.25 mg/dL Low 0.3 - 1.2 mg/dL [place] Bun/Cre Ratio 17 [place] Calcium [Mass/Vol] 8.7 mg/dL 8.6 - 10. 4 mg/dL [place] Chloride [Moles/Vol] 108 mmol/L High 98 - 10 7 mmol/L [place] CO2 [Moles/Vol] 19 mmol/L Low 20 - 31 mmol/L [place] Creatinine [Mass/Vol] 0.88 mg/dL 0.7 - 1.2 mg/dL [place] GFR >60 >60 mL/min [place] GFR Non- >60 >60 mL/min [place] Glucose [Mass/Vol] 196 mg/dL High 70 - 99 mg/dL [place] Interpretation and review of laboratory results Abnormal [place] Potassium [Moles/Vol] 3.8 mmol/L 3.7 - 5.3 mmol/L [place] Protein [Mass/Vol] 6.8 g/dL 6.4 - 8.3 g/dL [place] Sodium [Moles/Vol] 138 mmol/L 135 - 144 mmol/L [place] Urea nitrogen [Mass/Vol] 15 mg/dL 6 - 20 mg/dL [place] Lactate Dehydrogenaseon 12-03 LD 166 U/L 135 - 225 U/L [place] Metabolic Panelon 12-21-2018 GFR/1.73 sq M predicted among non-blacks MDRD (S/P/Bld) [Vol rate/Area] [place] Comment on above: Average GFR for 50-5 9 years old: 93 mL/min/1.73sq m Chronic Kidney Disease: <60 mL/min/1.73sq m Kidney failure: <15 mL/min/1.73sq m eGFR calculated using average adult body mass. Additional eGFR calculator available at: http://www.Palkion.Yast/multiple_crcl_2012.htm Stage 1: Some kidney damage normal GFR Stage 2: Mild kidney damage GFR 60-89 Stage 3: Moderate kidney damage GFR 30-59 Stage 4: Severe kidney damage GFR 15-29 Stage 5: Severe kidney damage GFR <15 ESRD - chronic treatment by dialysis or transplant BASIC METABOLIC PANELon 04-04 Calcium mass conc 8.5 mg/dL Low 8.6-10.3 [facility] Comment on above: Order Comment: No: D o not add to previous draw Performed By: #### 8 [id number] ####[facility] [place] [address], [facility] Chloride molar conc 108 mmol/L High 98-107 [facility] Comment on above: Order Comment: No: D o not add to previous draw Performed By: #### 8 [id number] ####[facility] [place] [address], [place] CO2 molar conc 19 mmol/L Low 21-31 [facility] Comment on above: Order Comment: No: D o not add to previous draw Performed By: #### 8 [id number] ####[facility] [facility] [place] [address], [facility] Creatinine mass conc 0.81 mg/dL Normal 0.70-1.30 [facility] Comment on above: Order Comment: No: D o not add to previous draw Performed By: #### 8 [id number] ####[facility] [place] [address], [facility] GFR/1.73 sq M predicted among blacks MDRD vol rate/area (S/P/Bld) mL/min/{1.73_m2} Normal >60 [facility] Comment on above: Order Comment: No: D o not add to previous draw Performed By: #### 8 [id number] ####[facility] [facility] [place] [address], [facility] GFR/1.73 sq M predicted among non-blacks MDRD vol rate/area (S/P/Bld) mL/min/{1.73_m2} Normal >60 [facility] Comment on above: Order Comment: No: D o not add to previous draw Performed By: #### 8 [id number] ####[facility] [place] [address], [place] Glucose mass conc 105 mg/dL High 70-100 [facility] Comment on above: Order Comment: No: D o not add to previous draw Performed By: #### 8 [id number] ####[facility] [place] [address], [facility] Potassium molar conc 3.8 mmol/L Normal 3.5-5.1 [facility] Comment on above: Order Comment: No: D o not add to previous draw Performed By: #### 8 [id number] ####[facility] [place] [address], [facility] Sodium molar conc 134 mmol/L Low 136-145 [facility] Comment on above: Order Comment: No: D o not add to previous draw Performed By: #### 8 [id number] ####[facility] [place] [place] [address], [facility] Urea nitrogen mass conc 10 mg/dL Normal 7-25 [facility] Comment on above: Order Comment: No: D o not add to previous draw Performed By: #### 8 [id number] ####[facility] [facility] CBC COMPLETE BLOOD COUNTon 1 06-29-2017 Erythrocyte distribution width Auto Ratio (RBC) 13.5 % Normal 11.5-15.0 [facility] Comment on above: Order Comment: No: D o not add to previous draw Performed By: #### 8 [id number] ####[facility] Hematocrit Auto Volume Fraction (Bld) 34.5 % Low 39.0-50.0 [facility] Comment on above: Order Comment: No: D o not add to previous draw Performed By: #### 8 [id number] ####[facility] [place] [address], [facility] Hemoglobin mass conc (Bld) 11.4 g/dL Low 13.0-17.0 [facility] Comment on above: Order Comment: No: D o not add to previous draw Performed By: #### 8 [id number] ####[facility] [facility].[address] MCH Auto Entitic mass (RBC) 29.2 pg Normal 27.0-33.0 [facility] Comment on above: Order Comment: No: D o not add to previous draw Performed By: #### 8 [id number] ####[facility] [facility].[address] MCHC Auto mass conc (RBC) 33.0 g/dL Normal 32.0-35.0 [facility] Comment on above: Order Comment: No: D o not add to previous draw Performed By: #### 8 [id number] ####[facility] [facility].[address] MCV Auto Entitic volume (RBC) 88.5 fL Normal 82.0-98.0 [facility] Comment on above: Order Comment: No: D o not add to previous draw Performed By: #### 8 [id number] ####[facility] Nucleated RBC/100 WBC Ratio (Bld) 0 % Normal 0-0 [facility] Comment on above: Order Comment: No: D o not add to previous draw Performed By: #### 8 5123 ####[place] [id number] [address] PLAT CNT 256 10*3/uL Normal 150-400 [facility] Comment on above: Order Comment: No: D o not add to previous draw Performed By: #### 8 [id number] ####[facility] [place] [address], [facility] RBC Auto #/vol (Bld) 3.90 10*6/uL Low 4.20-5.70 [facility] Comment on above: Order Comment: No: D o not add to previous draw Performed By: #### 8 [id number] ####[facility] [facility].[address] WBC Auto #/vol (Bld) 7.51 10*3/uL Normal 4.00-10.60 [facility] Comment on above: Order Comment: No: D o not add to previous draw Performed By: #### 8 [id number] ####[facility] MAGNESIUM BLOODon 04-28-2018 Magnesium mass conc 1.7 mg/dL Low 1.9-2.7 [facility] Comment on above: Order Comment: No: D o not add to previous draw Performed By: #### 8 [id number] ####[facility] [facility].[address] BASIC METABOLIC PANELon 04-04 Calcium mass conc 8.0 mg/dL Low 8.6-10.3 [facility] Comment on above: Performed By: #### 5 0103 ####[facility] [facility].[address] Chloride molar conc 109 mmol/L High 98-107 [facility] Comment on above: Performed By: #### 5 0103 ####[facility] [facility].[address] CO2 molar conc 15 mmol/L Low 21-31 [facility] Comment on above: Performed By: #### 5 0103 ####[facility] [facility].[address] Creatinine mass conc 0.88 mg/dL Normal 0.70-1.30 [facility] Comment on above: Performed By: #### 5 0103 ####[facility] [facility].[address] GFR/1.73 sq M predicted among blacks MDRD vol rate/area (S/P/Bld) mL/min/{1.73_m2} Normal >60 [facility] Comment on above: Performed By: #### 5 0103 ####[facility] [place] [address], [facility] GFR/1.73 sq M predicted among non-blacks MDRD vol rate/area (S/P/Bld) mL/min/{1.73_m2} Normal >60 [facility] Comment on above: Performed By: #### 5 0103 ####[facility] [place] [place] [address], [facility] Glucose mass conc 97 mg/dL Normal 70-100 [facility] Comment on above: Performed By: #### 5 3 ####[facility] Potassium molar conc 3.7 mmol/L Normal 3.5-5.1 [facility] Comment on above: Performed By: #### 102 ####[facility] [facility].[address] Sodium molar conc 136 mmol/L Normal 136-145 [facility] Comment on above: Performed By: #### 5 3 ####[facility] Urea nitrogen mass conc 11 mg/dL Normal 7-25 [facility] Comment on above: Performed By: #### 5 3 ####[facility] [facility].[address] CBC COMPLETE BLOOD COUNTon 06-28-2017 Erythrocyte distribution width Auto Ratio (RBC) 13.5 % Normal 11.5-15.0 [facility] Comment on above: Order Comment: No: D o not add to previous draw Performed By: #### 5 3 ####[facility] Hematocrit Auto Volume Fraction (Bld) 33.2 % Low 39.0-50.0 [facility] Comment on above: Order Comment: No: D o not add to previous draw Performed By: #### 5 0103 ####[facility] Hemoglobin mass conc (Bld) 10.7 g/dL Low 13.0-17.0 [facility] Comment on above: Order Comment: No: D o not add to previous draw Performed By: #### 5 0103 ####[id number] MCH Auto Entitic mass (RBC) 29.1 pg Normal 27.0-33.0 [facility] Comment on above: Order Comment: No: D o not add to previous draw Performed By: #### 5 3 ####[facility] MCHC Auto mass conc (RBC) 32.2 g/dL Normal 32.0-35.0 [facility] Comment on above: Order Comment: No: D o not add to previous draw Performed By: #### 5 3 ####[facility] MCV Auto Entitic volume (RBC) 90.2 fL Normal 82.0-98.0 [facility] Comment on above: Order Comment: No: D o not add to previous draw Performed By: #### 5 3 ####[id number] Nucleated RBC/100 WBC Ratio (Bld) 0 % Normal 0-0 [facility] Comment on above: Order Comment: No: D o not add to previous draw Performed By: #### 5 3 ####[facility] PLAT CNT 235 10*3/uL Normal 150-400 [facility] Comment on above: Order Comment: No: D o not add to previous draw Performed By: #### 5 3 ####[facility] RBC Auto #/vol (Bld) 3.68 10*6/uL Low 4.20-5.70 [facility] Comment on above: Order Comment: No: D o not add to previous draw Performed By: #### 5 0103 ####[facility] [facility] WBC Auto #/vol (Bld) 6.99 10*3/uL Normal 4.00-10.60 [facility] Comment on above: Order Comment: No: D o not add to previous draw Performed By: #### 5 0103 ####[facility] Consultationon 04-27-2018 Consultation MR#: [id number] Velia Bagley Date of Service: 04/27/2018 Room #: 3AB [id number] Birthdate: 1960 Referring Physician: CONSULTATIONREASON FOR CONSULTATION:UTIHISTORY [...] prostatic hyperplasia, urinary tract infectionPLAN:UTI- Culture from [place] growing E. Coli. no evidence of systemicinfection [...] Dict: 04/27/2018/09:14 A/JUWAN Montañoate Trans: 04/27/2018 09:14 Kristen/DEAN_JN:[id number]: Alix Murphy M.D. E R Physican...do Not Send [address] [facility] [address] Normal [facility] MAGNESIUM BLOODon 04-27-2018 Magnesium mass conc 1.7 mg/dL Low 1.9-2.7 [facility] Comment on above: Performed By: #### 5 0103 ####[facility] [facility].[address] VANCOMYCIN TIMEDon 8 VANCOMYCIN TIMED 4.3 mcg/mL Normal [facility] Comment on above: Performed By: #### 8 [id number] ####[facility] [facility].[address] VANCOMYCIN TIMED 9.2 mcg/mL Normal [facility] Comment on above: Performed By: #### 5 0103 ####[facility] [facility].[address] *BLOOD CULTUREon 04-26-2018 Bacteria identified in Blood by Culture Clinical Report: (D) Specimen: BLOOD CULTURE Collected: 04/26/2018 06:21 Status: Final Last Updated: 05/01/2018 08:55 (1) x 2 Prior to Antibiotic Administration CULT RES (Final) No Growth Day 5 Normal [facility] Comment on above: Order Comment: No: D o not add to previous draw Performed By: #### 5 0103 ####[facility] [place] [address], [facility] [facility] Bacteria identified in Blood by Culture Clinical Report: (D) Specimen: BLOOD CULTURE Collected: 04/26/2018 06:16 Status: Final Last Updated: 05/01/2018 08:55 (1) x 2 Prior to Antibiotic Administration CULT RES (Final) No Growth Day 5 Normal [facility] Comment on above: Order Comment: No: D o not add to previous draw Performed By: #### 5 0103 ####[facility] [place] [address], [facility] AMMONIA BLOODon 04-26-2018 Ammonia mass conc (P) 43 umol/L Normal 16-53 [facility] Comment on above: Order Comment: No: D o not add to previous draw Performed By: #### 2 1408 ####[facility] [place] [address], [facility] BASIC METABOLIC PANELon 04-04 Calcium mass conc 8.0 mg/dL Low 8.6-10.3 [facility] Comment on above: Order Comment: No: D o not add to previous draw Performed By: #### 3 5200, 63296, 36971, 01703, 07472, 10781 ####[facility] [place] [address], [facility] Chloride molar conc 110 mmol/L High 98-107 [facility] Comment on above: Order Comment: No: D o not add to previous draw Performed By: #### 3 5200, 11446, 55688, 04279, 90938, 82625 ####[facility] [facility] [place] [address], [facility] CO2 molar conc 22 mmol/L Normal 21-31 [facility] Comment on above: Order Comment: No: D o not add to previous draw Performed By: #### 3 5200, 51341, 95172, 27332, 70405, 14424 ####[facility] [place] [address], [facility] Creatinine mass conc 0.95 mg/dL Normal 0.70-1.30 [facility] Comment on above: Order Comment: No: D o not add to previous draw Performed By: #### 3 5200, 60144, 58359, 49574, 90256, 87011 ####[facility] [place] [address], [facility] GFR/1.73 sq M predicted among blacks MDRD vol rate/area (S/P/Bld) mL/min/{1.73_m2} Normal >60 [facility] Comment on above: Order Comment: No: D o not add to previous draw Performed By: #### 3 5200, 37605, 71150, 53727, 86836, 41899 ####[facility] [place] [address], [facility] GFR/1.73 sq M predicted among non-blacks MDRD vol rate/area (S/P/Bld) mL/min/{1.73_m2} Normal >60 [facility] Comment on above: Order Comment: No: D o not add to previous draw Performed By: #### 3 5200, 82752, 65993, 90827, 07837, 84080 ####[facility] [place] [address], [place] Glucose mass conc 130 mg/dL High 70-100 [facility] Comment on above: Order Comment: No: D o not add to previous draw Performed By: #### 3 5200, 89658, 93539, 52327, 47321, 64327 ####[facility] [place] [address], [facility] Potassium molar conc 4.4 mmol/L Normal 3.5-5.1 [facility] Comment on above: Order Comment: No: D o not add to previous draw Performed By: #### 3 5200, 44666, 13667, 81322, 11483, 87498 ####[facility] [place] [address], [facility] Sodium molar conc 137 mmol/L Normal 136-145 [facility] Comment on above: Order Comment: No: D o not add to previous draw Performed By: #### 3 5200, 17152, 53606, 66208, 99289, 74495 ####[facility] [place] [address], [facility] Urea nitrogen mass conc 15 mg/dL Normal 7-25 [facility] Comment on above: Order Comment: No: D o not add to previous draw Performed By: #### 3 5200, 19804, 55816, 36217, 48899, 13624 ####[facility] [facility] BNP (B-TYPE NATRIURETIC PEPT KAMERON)on 04-26-2018 Natriuretic peptide B mass conc (Bld) 49 pg/mL Normal 0-100 [facility] Comment on above: Order Comment: No: D o not add to previous draw Result Comment: Give n the appropriate clinical setting a BNP result of >100 pg/mLindicates congestive heart failure. Performed By: #### 8 5123 ####[facility] [place] [address], [facility] CBC W/DIFFon 04-26-2018 ABS BASOPHILS 0.0 10*3/uL Normal 0.0-0.2 [facility] Comment on above: Order Comment: No: D o not add to previous draw Performed By: #### 5 0103 ####[facility] [place] [address], [facility] ABS IMM GRANS 0.1 10*3/uL Normal 0.0-0.2 [facility] Comment on above: Order Comment: No: D o not add to previous draw Performed By: #### 5 0103 ####[facility] [place] [address], [facility] ABS NEUTROPHILS 8.0 10*3/uL High 1.6-7.6 [facility] Comment on above: Order Comment: No: D o not add to previous draw Performed By: #### 5 0103 ####[facility] [place] [address], [facility] Basophils Auto #/vol (Bld) 0.0 % Normal 0.0-1.0 [facility] Comment on above: Order Comment: No: D o not add to previous draw Performed By: #### 5 0103 ####[facility] [place] [address], [facility] Eosinophils Auto #/vol (Bld) 0.0 10*3/uL Normal 0.0-0.5 [facility] Comment on above: Order Comment: No: D o not add to previous draw Performed By: #### 5 0103 ####[facility] [facility].[address] Eosinophils/100 WBC Auto (Bld) 0.0 % Normal 0.0-6.0 [facility] Comment on above: Order Comment: No: D o not add to previous draw Performed By: #### 5 0103 ####[facility] Erythrocyte distribution width Auto Ratio (RBC) 13.5 % Normal 11.5-15.0 [facility] Comment on above: Order Comment: No: D o not add to previous draw Performed By: #### 5 0103 ####[facility] Hematocrit Auto Volume Fraction (Bld) 36.2 % Low 39.0-50.0 [facility] Comment on above: Order Comment: No: D o not add to previous draw Performed By: #### 5 0103 ####[facility] Hemoglobin mass conc (Bld) 11.6 g/dL Low 13.0-17.0 [facility] Comment on above: Order Comment: No: D o not add to previous draw Performed By: #### 5 0103 ####[facility] IMMATURE GRANS 0.9 % Normal 0.0-1.0 [facility] Comment on above: Order Comment: No: D o not add to previous draw Performed By: #### 5 0103 ####[facility] Lymphocytes Auto #/vol (Bld) 0.8 10*3/uL Low 1.2-4.0 [facility] Comment on above: Order Comment: No: D o not add to previous draw Performed By: #### 5 0103 ####[facility] Lymphocytes/100 WBC Auto (Bld) 8.7 % Low 20.0-45.0 [facility] Comment on above: Order Comment: No: D o not add to previous draw Performed By: #### 5 0103 ####[facility] MCH Auto Entitic mass (RBC) 29.1 pg Normal 27.0-33.0 [facility] Comment on above: Order Comment: No: D o not add to previous draw Performed By: #### 5 0103 ####[facility] MCHC Auto mass conc (RBC) 32.0 g/dL Normal 32.0-35.0 [facility] Comment on above: Order Comment: No: D o not add to previous draw Performed By: #### 5 0103 ####[facility] [facility].[address] MCV Auto Entitic volume (RBC) 90.7 fL Normal 82.0-98.0 [facility] Comment on above: Order Comment: No: D o not add to previous draw Performed By: #### 5 0103 ####[facility] Monocytes Auto #/vol (Bld) 0.5 10*3/uL Normal 0.1-1.0 [facility] Comment on above: Order Comment: No: D o not add to previous draw Performed By: #### 5 0103 ####[facility] MONOS 5.2 % Normal 5.0-12.0 [facility] Comment on above: Order Comment: No: D o not add to previous draw Performed By: #### 5 0103 ####[facility] [facility].[address] Neutrophils/100 WBC Auto (Bld) 85.2 % High 40.0-72.0 [facility] Comment on above: Order Comment: No: D o not add to previous draw Performed By: #### 5 0103 ####[facility] [facility].[address] Nucleated RBC/100 WBC Ratio (Bld) 0 % Normal 0-0 [facility] Comment on above: Order Comment: No: D o not add to previous draw Performed By: #### 5 0103 ####[facility] [place] [address], [facility] PLAT CNT 227 10*3/uL Normal 150-400 [facility] Comment on above: Order Comment: No: D o not add to previous draw Performed By: #### 5 0103 ####[facility] [place] [address] RBC Auto #/vol (Bld) 3.99 10*6/uL Low 4.20-5.70 [facility] Comment on above: Order Comment: No: D o not add to previous draw Performed By: #### 5 0103 ####[facility] [place] [address] WBC Auto #/vol (Bld) 9.36 10*3/uL Normal 4.00-10.60 [facility] Comment on above: Order Comment: No: D o not add to previous draw Performed By: #### 5 0103 ####[address] BRAIN WO CONTRASTon 04-26 CT [facility]RA[facility] [address] [place] [id number] ==Patient Name: VELIA BAGLEY : 1960ex: MAge: Race: WhiteMRN: [id number]. Location: [id number] Status: IVisit #: [id number] Date: 04/26/2018 6:05:00 AMCompleted Date: 04/26/2018 07:13 AMRequesting Provider: LEANNA LAW Attending Provider: HAZEL WARD Report Copy To: Signs & Symptoms: LethargyHistory: Patient history not availableComments: R/O CVAExam: CT BRAIN WO CONTRASTAccession #: [id number] =========CT BRAIN WO CONTRAST 04/26/2018 7:13 AM [...] findings. Electronically signed by:Enma Lea. Transcribed by: [email or web address], User Resident: SANDRA MOSERElectronically Signed by: ENMA LEA @ 04/27/2018 07:00 AMI personally read this/these film(s) with this resident Normal [facility] Comment on above: Order Comment: No: D o not add to previous draw HEMOGLOBIN A1Con 04-26-2018 Glucose mass conc 108 mg/dL Normal 70-126 [facility] Comment on above: Order Comment: No: D o not add to previous draw Performed By: #### 8 5123 ####[facility] Hemoglobin A1c/Hemoglobin.total mass fraction (Bld) 5.4 % Normal 4.0-6.0 [facility] Comment on above: Order Comment: No: D o not add to previous draw Performed By: #### 8 5123 ####[facility] [facility].[address] HEPATITIS C ANTIBODYon 04-26 ANTI-HCV NONREACTIVE Normal NONREACTIVE [facility] Comment on above: Order Comment: No: D o not add to previous draw Performed By: #### 5 0103 ####[facility] [facility].[address] HIV COMBO 4Gon 04-26-2018 HIV COMBO Negative Normal NEGATIVE [facility] Comment on above: Performed By: #### 5 0103 ####[place] [address] [address] History and Physicalon 04-26 History and Physical [id number] Admitted: 04/26/2018 Date of : 1960 Attending Physician: eLanna Law M.D. Room #: 3AB [id number] Discharge Date: HISTORY AND PHYSICALCHIEF COMPLAINT: Lethargy, altered mental status.HISTORY OF PRESENT ILLNESS: The patient is a 58-year-old gentleman withpast medical history of hypertension, COPD, osteoarthritis, CVA withleft-sided weakness, presented as a transfer from [facility]. Fromthe review of the medical records that [...] dose of hydrocortisone IV andvancomycin. Doctor from [facility] ER wanted the patient vinnie to [facility] because the patient has multiple allergies. They [...] DVT and GI prophylaxis. PT, OT and Study Hall Supervisor for possible rehab placement if needed. We will resume patient's home medications. We will hold medications that may contribute to the patient's increased somnolence and that might affect the patient's mental status.Electronically Signed by:Leanna Law M.D. 04/30/2018 10:30 A Leanna Law M.D.Date Dict: 04/26/2018/06:21 A/Leanna Law M.D.Date Trans: 04/26/2018 07:04 A/lornaoDN_JN:[id number] Normal [facility] LIVER BATTERYon 04-26-2018 Albumin mass conc 3.2 g/dL Low 3.5-5.7 [facility] Comment on above: Order Comment: No: D o not add to previous draw Performed By: #### 3 5200, 79818, 72987, 87899, 94167, 14257 ####[facility] [place] [address], [facility] ALKALINE PHOSPH 122 IU/L High 34-104 [facility] Comment on above: Order Comment: No: D o not add to previous draw Performed By: #### 3 5200, 45735, 92825, 43977, 08977, 88794 ####[facility] [place] [address], [facility] ALT enzyme act/vol 16 U/L Normal 7-52 [facility] Comment on above: Order Comment: No: D o not add to previous draw Performed By: #### 3 5200, 39612, 88910, 76107, 65588, 87042 ####[facility] [place] [address], [place] AST enzyme act/vol 15 U/L Normal 13-39 [facility] Comment on above: Order Comment: No: D o not add to previous draw Performed By: #### 3 5200, 90931, 95389, 55391, 37040, 38517 ####[facility] [place] [address], [place] Bilirubin mass conc 0.5 mg/dL Normal 0.3-1.0 [facility] Comment on above: Order Comment: No: D o not add to previous draw Performed By: #### 3 5200, 16740, 54720, 70055, 06604, 47813 ####[facility] [place] [address], [place] Bilirubin.direct mass conc 0.1 mg/dL Normal 0.0-0.2 [facility] Comment on above: Order Comment: No: D o not add to previous draw Performed By: #### 3 5200, 77092, 97615, 09739, 90472, 65661 ####[facility] [place] [address], [facility] Protein mass conc 5.6 g/dL Low 6.0-8.3 [facility] Comment on above: Order Comment: No: D o not add to previous draw Performed By: #### 3 5200, 63649, 20207, 04583, 68890, 57796 ####[facility] [place] [address], [facility] MAGNESIUM BLOODon 04-26-2018 Magnesium mass conc 1.8 mg/dL Low 1.9-2.7 [facility] Comment on above: Order Comment: No: D o not add to previous draw Performed By: #### 3 5200, 90522, 91344, 26241, 34377, 16470 ####[facility] PHOSPHORUS BLOODon 8 Phosphate mass conc 3.1 mg/dL Normal 2.5-5.0 [facility] Comment on above: Order Comment: No: D o not add to previous draw Performed By: #### 3 5200, 70949, 66119, 73866, 09126, 68927 ####[facility] [facility].[address] SEPSIS LACTATE W/REFLEXon Lactate molar conc 0.6 mmol/L Normal 0.5-2.2 [facility] Comment on above: Order Comment: No: D o not add to previous draw Performed By: #### 3 1414 ####[facility] TROPONIN-Ion 04-26-2018 Troponin I.cardiac mass conc 0.01 ng/mL Normal 0.00-0.04 [facility] Comment on above: Order Comment: No: D o not add to previous draw Result Comment: REFE RENCE RANGES: 0.00 - 0.04 ng/ml NORMAL 0.05 - 0.50 ng/ml INDETERMINATE > 0.50 ng/ml CONSISTENT WITH AN M.I. Performed By: #### 3 5200, 98425, 11224, 56830, 82853, 87185 ####[facility] [place] [address], [facility] VANCOMYCIN TIMEDon 8 VANCOMYCIN TIMED 8.1 mcg/mL Normal [facility] Comment on above: Performed By: #### 5 0103 ####[facility] [facility].[address] VITAMIN B12on 04-26-2018 Cobalamin (Vitamin B12) mass conc 221 pg/mL Normal 180-914 [facility] Comment on above: Order Comment: No: D o not add to previous draw Result Comment: REFE RENCE RANGES:180-914 pg/mL Velkpw177-328 pg/mL Indeterminate<145 pg/mL Deficient Performed By: #### 3 5200, 08726, 88430, 69901, 62165, 73600 ####[facility] [facility], [place] [address] [place] [address] Discharge Summaryon 05-13-19 Discharge Summary [facility] Patient: VELIA BAGLEY[address] MR#: [id number] [place], [place] [address] : 1960 OrdSindi Clarke: Dept: PDOC Loc: 8W 842-1 Discharge Summary Service Dt: 05/13/17 Report#: [id number] Adm Dt: 05/09/17 Dis Dt: Discharge Summary [...] mg 1 tab PO TID PRN 05/09/17 [Mccune 5/325 mg] Losartan/Hydrochlorothia zide 1 each PO DAILY 05/09/17 [Losartan-Hctz 100-25 mg Tab] Montelukast Sodium [Singulair] 10 mg PO SUPPER 05/09/17 Potassium Chloride [Klor-Con] 20 meq PO TID 05/09/17 Pregabalin [Lyrica] 200 mg PO Q12 05/09/17 Tiotropium [place] [Spiriva] 18 mcg IN DAILY 05/09/17 Topiramate [Topamax] 100 mg PO Q12 05/09/17 diazePAM [Valium] 10 mg PO TID PRN 05/09/17 tiZANidine [Zanaflex] 8 mg PO QHS 05/09/17 Finasteride [Proscar] 5 mg PO DAILY #30 tab 05/13/17 Tamsulosin HCl [Flomax] 400 mcg PO QHS #30 cap 05/13/17 - Time Spent with Patient Time with Patient: 32 Normal [facility] General Medical Progress Not penny 05-12-2017 General Medical Progress Note [facility] Patient: VELIA BAGLEY [facility] MR#: [id number] [place], [place] [address] : 1960 OrdSindi Clarke: Dept: PDOC Loc: 8W 842-1 General Medical Progress Note Service Dt: 05/12/17 Report#: [id number] Adm Dt: 05/09/17 Dis Dt: General-Medical Progress [...] Amitriptyline HCl (Elavil) 10 mg PO QHS [facility] Last Admin: 05/11/17 21:43 Dose: 10 mg Apixaban (Eliquis) 5 mg PO BID [facility] Last Admin: 05/11/17 17:09 Dose: 5 mg Celecoxib (Celebrex) 400 mg PO BID [facility] Last Admin: 05/11/17 17:10 Dose: 400 mg Dextrose (Dextrose Syringe) 50 ml IV Q15M PRN PRN Reason: Hypoglycemia Diazepam (Valium) 10 mg PO TID PRN PRN Reason: Anxiety Last Admin: 05/11/17 17:22 Dose: 10 mg Fluticasone Propionate (Flonase) 1 spray EACH NSTRL DAILY [facility] Last Admin: 05/11/17 09:04 Dose: Not Given Glucagon (Glucagon) 1 mg IM Q15M PRN PRN Reason: Hypoglycemia Hydrochlorothiazide (Esidrix) 25 mg PO DAILY [facility] Last Admin: 05/11/17 09:04 Dose: 25 mg Losartan Potassium (Cozaar) 100 mg PO DAILY [facility] Last Admin: 05/11/17 09:04 Dose: 100 mg Montelukast Sodium (Singulair) 10 mg PO SUPPER [facility] Last Admin: 05/11/17 17:09 Dose: 10 mg Almotriptan 12.5 Mg 0 each PO VARIABLE PRN PRN Reason: MIGRAINE Potassium Chloride (K-Dur) 60 meq PO DAILY [facility] Pregabalin (Lyrica) 200 mg PO Q12 [facility] Last Admin: 05/11/17 21:42 Dose: 200 mg Fluticasone/Salmeterol (Advair 250/50 Mcg Inhaler) 1 puff IN BID(RESP) [facility] Last Admin: 05/12/17 07:30 Dose: 1 puff Tamsulosin HCl (Flomax) 400 mcg PO QHS [facility] Last Admin: 05/11/17 21:43 Dose: 400 mcg Tiotropium [place] (Spiriva) 1 puff IN DAILY(RESP) [facility] Last Admin: 05/12/17 07:32 Dose: 1 puff Topiramate (Topamax) 100 mg PO Q12 [facility] Last Admin: 05/11/17 21:43 Dose: 100 mg [...] Time (minutes) Time Spent w/Patient: 32 Normal [facility] Potassiumon 05-12-2017 Potassium molar conc 3.9 mmol/L Normal 3.5-5.1 [facility] Comment on above: Performed By: #### C BC, BMP, LDLP ####[facility] [place] [address] Urology Progress Noteon Urology Progress Note [facility] Patient: VELIA BAGLEY [address] [facility] MR#: [id number] [place], [place] [address] : 1960 Ord. : Dept: PDOC Loc: 8W 842-1 Urology Progress Note Service Dt: 05/12/17 Report#: [id number] Adm Dt: 05/09/17 Dis Dt: Addendum entered by Aj Rivas MD on 05/12/17 1130 Physician Supervisory Note Supervisory Addendum: Patient seen and I agree with the Physician Small Animal Veterinarian's note. 05/12/17 1130 End of Addendum Urology [...] Amitriptyline HCl (Elavil) 10 mg PO QHS [facility] Last Admin: 05/11/17 21:43 Dose: 10 mg Apixaban (Eliquis) 5 mg PO BID [facility] Last Admin: 05/12/17 09:25 Dose: 5 mg Celecoxib (Celebrex) 400 mg PO BID [facility] Last Admin: 05/12/17 09:24 Dose: 400 mg Dextrose (Dextrose Syringe) 50 ml IV Q15M PRN PRN Reason: Hypoglycemia Diazepam (Valium) 10 mg PO TID PRN PRN Reason: Anxiety Last Admin: 05/11/17 17:22 Dose: 10 mg Fluticasone Propionate (Flonase) 1 spray EACH NSTRL DAILY [facility] Last Admin: 05/12/17 09:27 Dose: Not Given Glucagon (Glucagon) 1 mg IM Q15M PRN PRN Reason: Hypoglycemia Hydrochlorothiazide (Esidrix) 25 mg PO DAILY [facility] Last Admin: 05/12/17 09:27 Dose: 25 mg Losartan Potassium (Cozaar) 100 mg PO DAILY [facility] Last Admin: 05/12/17 09:25 Dose: 100 mg Montelukast Sodium (Singulair) 10 mg PO SUPPER [facility] Last Admin: 05/11/17 17:09 Dose: 10 mg Almotriptan 12.5 Mg 0 each PO VARIABLE PRN PRN Reason: MIGRAINE Potassium Chloride (K-Dur) 60 meq PO DAILY [facility] Last Admin: 05/12/17 09:32 Dose: 60 meq Pregabalin (Lyrica) 200 mg PO Q12 [facility] Last Admin: 05/12/17 09:31 Dose: 200 mg Fluticasone/Salmeterol (Advair 250/50 Mcg Inhaler) 1 puff IN BID(RESP) [facility] Last Admin: 05/12/17 07:30 Dose: 1 puff Tamsulosin HCl (Flomax) 400 mcg PO QHS [facility] Last Admin: 05/11/17 21:43 Dose: 400 mcg Tiotropium [place] (Spiriva) 1 puff IN DAILY(RESP) [facility] Last Admin: 05/12/17 07:32 Dose: 1 puff [...] standpoint and F/U in 1-2 weeks Normal [facility] Carotid Duplex Scanon 2017 Carotid Duplex Scan [facility] , [address] [place] [address] and Vascular Lab Report Carotid Artery Duplex Ultrasound Patient Name: VELIA BAGLEY Study Date: 05/11/2017 Reading Physician: YOSELIN Miller MD MRN/PID: [id number] Referring Physician: PAULINE Belcher Accession/Order#: [id number] PCP: Date of : 1960 CC Report to: Gender: M Technologist: Toña Johnson Admission Status: Inpatient Technologist 2: Facility Performed: [facility] Location Performed: [facility] Diagnosis/ICD: G45.9 - Transient cerebral ischemic attack, unspecified Procedure/CPT: 81117 - Cerebrovacular Carotid Duplex scan complete CONCLUSIONS: [...] 1.2 1.0 YOSELIN Miller MD Final Normal [facility] Complete Blood Count w/diff $$on 05-11-2017 Basophils Auto #/vol (Bld) 0.0 10 /uL Low 0.04-0.9 [facility] Comment on above: Performed By: #### C ZABRINA, BMP, LDLP ####[facility] [place] [address] Basophils/100 WBC Auto (Bld) 1 % Normal 0-1 [facility] Comment on above: Performed By: #### C ZABRINA, BMP, LDLP ####[facility] [place] [address] Eosinophils 0.1 10 3/uL Normal 0.03-0.6 [facility] Comment on above: Performed By: #### C ZABRINA, BMP, LDLP ####[facility] [place] [address] Eosinophils/100 leukocytes 1 % Normal 0-3 [facility] Comment on above: Performed By: #### C BC, BMP, LDLP ####[facility] [place] [address] Erythrocyte distribution width Auto Ratio (RBC) 14.4 % Normal 11.5-14.5 [facility] Comment on above: Performed By: #### C BC, BMP, LDLP ####[facility] [place] [address] Erythrocytes (RBC) 4.90 10 6/uL Normal 4.5-6.0 [facility] Comment on above: Performed By: #### C BC, BMP, LDLP ####[address] [address] Hematocrit (HCT) 44.9 % Normal 39-50 [facility] Comment on above: Performed By: #### C BC, BMP, LDLP ####[address] [address] Hemoglobin mass conc (Bld) 14.8 g/dL Normal 13.0-17.3 [facility] Comment on above: Performed By: #### C BC, BMP, LDLP ####[address] [address] Immature Gran# (Auto) 0.1 10 3/uL Normal [facility] Comment on above: Performed By: #### C BC, BMP, LDLP ####[address] [address] Immature granulocytes #/vol (Bld) 0.7 % Normal 0.0-1.2 [facility] Comment on above: Performed By: #### C BC, BMP, LDLP ####[address] [address] Lymphocytes 1.4 10 3/uL Normal 1-3.5 [facility] Comment on above: Performed By: #### C BC, BMP, LDLP ####[address] [place] [address] Lymphocytes/100 leukocytes 20 % Low 24-44 [facility] Comment on above: Performed By: #### C BC, BMP, LDLP ####[facility] [place] [address] MCH 30.2 pg Normal 27-34 [facility] Comment on above: Performed By: #### C BC, BMP, LDLP ####[facility] [place] [address] MCH 33.0 g/dL Normal 33-37 [facility] Comment on above: Performed By: #### C BC, BMP, LDLP ####[facility] [place] [address] MCV 91.6 fL Normal 80-100 [facility] Comment on above: Performed By: #### C BC, BMP, LDLP ####[facility] [place] [address] Monocytes 0.6 10 3/uL Normal 0.04-0.9 [facility] Comment on above: Performed By: #### C BC, BMP, LDLP ####[facility] [place] [address] Monocytes/100 leukocytes 8 % Normal 1-8 [facility] Comment on above: Performed By: #### C BC, BMP, LDLP ####[facility] [place] [address] Neutrophils 5.0 10 3/uL Normal 1.8-7.0 [facility] Comment on above: Performed By: #### C BC, BMP, LDLP ####[facility] [place] [address] Neutrophils/100 leukocytes 69 % Normal 42-76 [facility] Comment on above: Performed By: #### C BC, BMP, LDLP ####[address] [place] [address] Nucleated erythrocytes 0.0 % Normal 0.0-0.2 [facility] Comment on above: Performed By: #### C BC, BMP, LDLP ####[facility] [place] [address] Platelet mean volume (PMV) 9.2 fL Normal 7.4-10.4 [facility] Comment on above: Performed By: #### C BC, BMP, LDLP ####[address] [address] Platelets 217 10 3/uL Normal 150-400 [facility] Comment on above: Performed By: #### C BC, BMP, LDLP ####[address] [address] WBC (Leukocytes) 7.2 10 3/uL Normal 4.0-11.0 [facility] Comment on above: Performed By: #### C BC, BMP, LDLP ####[facility] [place] [address] Comprehensive Metabolic Pane nanette 05-11-2017 Alanine aminotransferase (ALT) 25 U/L Normal 12-78 [facility] Comment on above: Performed By: #### C BC, BMP, LDLP ####[facility] [place] [address] Albumin 3.3 g/dL Low 3.4-5.0 [facility] Comment on above: Performed By: #### C BC, BMP, LDLP ####[facility] [place] [address] Alkaline phosphatase (ALP) 87 U/L Normal 50-136 [facility] Comment on above: Performed By: #### C BC, BMP, LDLP ####[facility] [place] [address] Anion gap 13.7 mmol/L Normal [facility] Comment on above: Performed By: #### C BC, BMP, LDLP ####[facility] [place] [address] Aspartate aminotransferase (AST) 14 U/L Low 15-37 [facility] Comment on above: Performed By: #### C BC, BMP, LDLP ####[facility] [place] [address] Bilirubin Ql (U) 0.6 mg/dL Normal 0.2-1.0 [facility] Comment on above: Performed By: #### C BC, BMP, LDLP ####[address] [address] BUN (urea nitrogen) 26 mg/dL High 7-18 [facility] Comment on above: Performed By: #### C BC, BMP, LDLP ####[address] [address] Calcium 8.3 mg/dL Low 8.5-10.1 [facility] Comment on above: Performed By: #### C BC, BMP, LDLP ####[address] [address] Chloride 110 mmol/L High 98-107 [facility] Comment on above: Performed By: #### C BC, BMP, LDLP ####[address] [address] CO2 22 mmol/L Normal 21-32 [facility] Comment on above: Performed By: #### C BC, BMP, LDLP ####[address] [address] Creatinine 1.0 mg/dL Normal 0.6-1.3 [facility] Comment on above: Performed By: #### C BC, BMP, LDLP ####[facility] [place] [address] Creatinine 85 mL/min Low 94-145 [facility] Comment on above: Performed By: #### C BC, BMP, LDLP ####[facility] [place] [address] eGFR (non-black) mL/min/{1.73_m2} Normal [facility] Comment on above: Performed By: #### C BC, BMP, LDLP ####[facility] [place] [address] Result Comment: eGFR Units of measure: mL/min/1.73 m 2 Glucose mass conc 112 mg/dL High 74-106 [facility] Comment on above: Performed By: #### C BC, BMP, LDLP ####[address] [address] Potassium molar conc 3.7 mmol/L Normal 3.5-5.1 [facility] Comment on above: Performed By: #### C BC, BMP, LDLP ####[address] [address] Protein 6.2 g/dL Low 6.4-8.2 [facility] Comment on above: Performed By: #### C BC, BMP, LDLP ####[address] [address] Sodium 142 mmol/L Normal 136-145 [facility] Comment on above: Performed By: #### C BC, BMP, LDLP ####[address] [address] General Medical Progress Not penny 05-11-2017 General Medical Progress Note [facility] Patient: VELIA BAGLEY [address] MR#: [id number] [place], [place] [address] : 1960 [address] Clarke: Dept: PDOC Loc: 842-1 General Medical Progress Note Service Dt: 05/11/17 Report#: [id number] Adm Dt: 05/09/17 Dis Dt: 05/13/17 General-Medical [...] Amitriptyline HCl (Elavil) 10 mg PO QHS [facility] Last Admin: 05/10/17 23:03 Dose: 10 mg Apixaban (Eliquis) 5 mg PO BID [facility] Last Admin: 05/11/17 09:04 Dose: 5 mg Celecoxib (Celebrex) 400 mg PO BID [facility] Last Admin: 05/11/17 09:04 Dose: 400 mg Dextrose (Dextrose Syringe) 50 ml IV Q15M PRN PRN Reason: Hypoglycemia Diazepam (Valium) 10 mg PO TID PRN PRN Reason: Anxiety Last Admin: 05/10/17 15:25 Dose: 10 mg Fluticasone Propionate (Flonase) 1 spray EACH NSTRL DAILY [facility] Last Admin: 05/11/17 09:04 Dose: Not Given Glucagon (Glucagon) 1 mg IM Q15M PRN PRN Reason: Hypoglycemia Hydrochlorothiazide (Esidrix) 25 mg PO DAILY [facility] Last Admin: 05/11/17 09:04 Dose: 25 mg Potassium Chloride 40 meq/ (Sodium Chloride) 270 mls @ 67.5 mls/hr IVPB LAB PRN PRN Reason: HYPOKALEMIA Losartan Potassium (Cozaar) 100 mg PO DAILY [facility] Last Admin: 05/11/17 09:04 Dose: 100 mg Montelukast Sodium (Singulair) 10 mg PO SUPPER [facility] Last Admin: 05/10/17 17:19 Dose: 10 mg Almotriptan 12.5 Mg 0 each PO VARIABLE PRN PRN Reason: MIGRAINE Potassium Bicarbonate (K-Lyte) 50 meq PO LAB PRN; Protocol PRN Reason: Based on Lab Parameters Last Admin: 05/09/17 16:49 Dose: 50 meq Potassium Chloride (K-Madison) 20 meq PO TID [facility] Last Admin: 05/11/17 13:36 Dose: 20 meq Pregabalin (Lyrica) 200 mg PO Q12 [facility] Last Admin: 05/11/17 09:04 Dose: 200 mg Fluticasone/Salmeterol (Advair 250/50 Mcg Inhaler) 1 puff IN BID(RESP) [facility] Last Admin: 05/11/17 10:51 Dose: 1 puff Tamsulosin HCl (Flomax) 400 mcg PO QHS [facility] Last Admin: 05/10/17 23:02 Dose: 400 mcg Tiotropium [place] (Spiriva) 1 puff IN DAILY(RESP) [facility] Last Admin: 05/11/17 10:52 Dose: 1 puff Topiramate (Topamax) 100 mg PO Q12 [facility] Last Admin: 05/11/17 09:03 Dose: 100 mg [...] weakness is certainly concerning Pertinent the neurologist medical sales consultant the patient needs physical therapy and [...] GI prophylaxis measures Monitor vital parameters Normal [facility] Lumbar W/O Contraston 2017 Lumbar W/O Contrast [facility] Patient: VELIA BAGLEY [address] MR#: [id number] [place], [place] [address] : [address] Mathew Miller MD Dept: Diagnostic Imaging Loc: 8W 842-1 DI REPORT Service Dt:05/11/17 Report#: [id number] Adm Dt: 05/09/17 Dis Dt: Comments: STUDY: MR Lumbar W/O Contrast; 05/11/2017 8:45 am INDICATION: left lower extremity weakness. Weakness for 1 day, patient walking with a cane. COMPARISON: None. ACCESSION NUMBER(S): [id number] ORDERING CLINICIAN: Mathew Miller TECHNIQUE: [place] STIR [...] by: Johnie Flores 05/11/2017 10:36 AM Normal [facility] Magnesium $$on 05-11-2017 Magnesium 2.2 mg/dL Normal 1.8-2.4 [facility] Comment on above: Performed By: #### C BC, BMP, LDLP ####[facility] [place] [address] Neurology Progress Noteon Neurology Progress Note [facility] Patient: VELIA BAGLEY [address] [facility] MR#: [id number] [place], [place] [address] : 1960 OrdSindi Clarke: Dept: PDOC Loc: 8 842-1 Neurology Progress Note Service Dt: 05/11/17 Report#: [id number] Adm Dt: 05/09/17 Dis Dt: Addendum entered by Mathew Miller MD on 05/11/17 1708 Neurology Progress Note - Patient Visit Reason [...] (Auto) 69 Lymph % (Auto) 20 L [place] % (Auto) 8 Eos % (Auto) 1 Baso % (Auto) 1 Nucleat RBC Rel Count 0.0 Immature Gran # (Auto) 0.1 Neut # (Auto) 5.0 Lymph # (Auto) 1.4 [place] # (Auto) 0.6 Eos # (Auto) 0.1 [...] Amitriptyline HCl (Elavil) 10 mg PO QHS [facility] Last Admin: 05/10/17 23:03 Dose: 10 mg Apixaban (Eliquis) 5 mg PO BID [facility] Last Admin: 05/11/17 09:04 Dose: 5 mg Celecoxib (Celebrex) 400 mg PO BID [facility] Last Admin: 05/11/17 09:04 Dose: 400 mg Dextrose (Dextrose Syringe) 50 ml IV Q15M PRN PRN Reason: Hypoglycemia Diazepam (Valium) 10 mg PO TID PRN PRN Reason: Anxiety Last Admin: 05/10/17 15:25 Dose: 10 mg Fluticasone Propionate (Flonase) 1 spray EACH NSTRL DAILY [facility] Last Admin: 05/11/17 09:04 Dose: Not Given Glucagon (Glucagon) 1 mg IM Q15M PRN PRN Reason: Hypoglycemia Hydrochlorothiazide (Esidrix) 25 mg PO DAILY [facility] Last Admin: 05/11/17 09:04 Dose: 25 mg Potassium Chloride 40 meq/ (Sodium Chloride) 270 mls @ 67.5 mls/hr IVPB LAB PRN PRN Reason: HYPOKALEMIA Losartan Potassium (Cozaar) 100 mg PO DAILY [facility] Last Admin: 05/11/17 09:04 Dose: 100 mg Montelukast Sodium (Singulair) 10 mg PO SUPPER [facility] Last Admin: 05/10/17 17:19 Dose: 10 mg Almotriptan 12.5 Mg 0 each PO VARIABLE PRN PRN Reason: MIGRAINE Potassium Bicarbonate (K-Lyte) 50 meq PO LAB PRN; Protocol PRN Reason: Based on Lab Parameters Last Admin: 05/09/17 16:49 Dose: 50 meq Potassium Chloride (K-Dur) 60 meq PO DAILY [facility] Pregabalin (Lyrica) 200 mg PO Q12 [facility] Last Admin: 05/11/17 09:04 Dose: 200 mg Fluticasone/Salmeterol (Advair 250/50 Mcg Inhaler) 1 puff IN BID(RESP) [facility] Last Admin: 05/11/17 10:51 Dose: 1 puff Tamsulosin HCl (Flomax) 400 mcg PO QHS [facility] Last Admin: 05/10/17 23:02 Dose: 400 mcg Tiotropium [place] (Spiriva) 1 puff IN DAILY(RESP) [facility] Last Admin: 05/11/17 10:52 Dose: 1 puff Topiramate (Topamax) 100 mg PO Q12 [facility] Last Admin: 05/11/17 09:03 Dose: 100 mg [...] extremity weakness. The patient was taken to [facility] and evaluated in the emergency room for an acute stroke. He had a CT scan of the brain that was negative for any acute process. The patient's NIH stroke scale score was 2. The ER staff called me and we discussed the case. The patient was to be transferred to [place] for further workup and care. The patient [...] (Auto) 69 Lymph % (Auto) 20 L [place] % (Auto) 8 Eos % (Auto) 1 Baso % (Auto) 1 Nucleat RBC Rel Count 0.0 Immature Gran # (Auto) 0.1 Neut # (Auto) 5.0 Lymph # (Auto) 1.4 [place] # (Auto) 0.6 Eos # (Auto) 0.1 [...] Amitriptyline HCl (Elavil) 10 mg PO QHS [facility] Last Admin: 05/10/17 23:03 Dose: 10 mg Apixaban (Eliquis) 5 mg PO BID [facility] Last Admin: 05/11/17 09:04 Dose: 5 mg Celecoxib (Celebrex) 400 mg PO BID [facility] Last Admin: 05/11/17 09:04 Dose: 400 mg Dextrose (Dextrose Syringe) 50 ml IV Q15M PRN PRN Reason: Hypoglycemia Diazepam (Valium) 10 mg PO TID PRN PRN Reason: Anxiety Last Admin: 05/10/17 15:25 Dose: 10 mg Fluticasone Propionate (Flonase) 1 spray EACH NSTRL DAILY [facility] Last Admin: 05/11/17 09:04 Dose: Not Given Glucagon (Glucagon) 1 mg IM Q15M PRN PRN Reason: Hypoglycemia Hydrochlorothiazide (Esidrix) 25 mg PO DAILY [facility] Last Admin: 05/11/17 09:04 Dose: 25 mg Potassium Chloride 40 meq/ (Sodium Chloride) 270 mls @ 67.5 mls/hr IVPB LAB PRN PRN Reason: HYPOKALEMIA Losartan Potassium (Cozaar) 100 mg PO DAILY [facility] Last Admin: 05/11/17 09:04 Dose: 100 mg Montelukast Sodium (Singulair) 10 mg PO SUPPER [facility] Last Admin: 05/10/17 17:19 Dose: 10 mg Almotriptan 12.5 Mg 0 each PO VARIABLE PRN PRN Reason: MIGRAINE Potassium Bicarbonate (K-Lyte) 50 meq PO LAB PRN; Protocol PRN Reason: Based on Lab Parameters Last Admin: 05/09/17 16:49 Dose: 50 meq Potassium Chloride (K-Dur) 60 meq PO DAILY [facility] Pregabalin (Lyrica) 200 mg PO Q12 [facility] Last Admin: 05/11/17 09:04 Dose: 200 mg Fluticasone/Salmeterol (Advair 250/50 Mcg Inhaler) 1 puff IN BID(RESP) [facility] Last Admin: 05/11/17 10:51 Dose: 1 puff Tamsulosin HCl (Flomax) 400 mcg PO QHS [facility] Last Admin: 05/10/17 23:02 Dose: 400 mcg Tiotropium [place] (Spiriva) 1 puff IN DAILY(RESP) [facility] Last Admin: 05/11/17 10:52 Dose: 1 puff Topiramate (Topamax) 100 mg PO Q12 [facility] Last Admin: 05/11/17 09:03 Dose: 100 mg [...] 05/09/17 15:25 05/10/17 16:48 05/11/17 17:03 Normal [facility] Urology Progress Noteon Urology Progress Note [facility] Patient: VELIA BAGLEY[address] [facility] MR#: [id number] [place], [place] [address] : 1960 [address] Clarke: Dept: PDOC Loc: 8 842-1 Urology Progress Note Service Dt: 05/11/17 Report#: [id number] Adm Dt: 05/09/17 Dis Dt: Addendum entered by Napoleon Sweeney MD on 05/11/17 1058 Physician Supervisory Note Supervisory Addendum: Patient seen and I agree with the Physician Small Animal Veterinarian's note. 05/11/17 1058 End of Addendum Urology [...] (Auto) 69 Lymph % (Auto) 20 L [place] % (Auto) 8 Eos % (Auto) 1 Baso % (Auto) 1 Nucleat RBC Rel Count 0.0 Immature Gran # (Auto) 0.1 Neut # (Auto) 5.0 Lymph # (Auto) 1.4 [place] # (Auto) 0.6 Eos # (Auto) 0.1 [...] Amitriptyline HCl (Elavil) 10 mg PO QHS [facility] Last Admin: 05/10/17 23:03 Dose: 10 mg Apixaban (Eliquis) 5 mg PO BID [facility] Last Admin: 05/11/17 09:04 Dose: 5 mg Celecoxib (Celebrex) 400 mg PO BID [facility] Last Admin: 05/11/17 09:04 Dose: 400 mg Dextrose (Dextrose Syringe) 50 ml IV Q15M PRN PRN Reason: Hypoglycemia Diazepam (Valium) 10 mg PO TID PRN PRN Reason: Anxiety Last Admin: 05/10/17 15:25 Dose: 10 mg Fluticasone Propionate (Flonase) 1 spray EACH NSTRL DAILY [facility] Last Admin: 05/11/17 09:04 Dose: Not Given Glucagon (Glucagon) 1 mg IM Q15M PRN PRN Reason: Hypoglycemia Hydrochlorothiazide (Esidrix) 25 mg PO DAILY [facility] Last Admin: 05/11/17 09:04 Dose: 25 mg Potassium Chloride 40 meq/ (Sodium Chloride) 270 mls @ 67.5 mls/hr IVPB LAB PRN PRN Reason: HYPOKALEMIA Losartan Potassium (Cozaar) 100 mg PO DAILY [facility] Last Admin: 05/11/17 09:04 Dose: 100 mg Montelukast Sodium (Singulair) 10 mg PO SUPPER [facility] Last Admin: 05/10/17 17:19 Dose: 10 mg Almotriptan 12.5 Mg 0 each PO VARIABLE PRN PRN Reason: MIGRAINE Potassium Bicarbonate (K-Lyte) 50 meq PO LAB PRN; Protocol PRN Reason: Based on Lab Parameters Last Admin: 05/09/17 16:49 Dose: 50 meq Potassium Chloride (K-Madison) 20 meq PO TID [facility] Last Admin: 05/11/17 09:04 Dose: 20 meq Pregabalin (Lyrica) 200 mg PO Q12 [facility] Last Admin: 05/11/17 09:04 Dose: 200 mg Fluticasone/Salmeterol (Advair 250/50 Mcg Inhaler) 1 puff IN BID(RESP) [facility] Last Admin: 05/10/17 19:04 Dose: 1 puff Tamsulosin HCl (Flomax) 400 mcg PO QHS [facility] Last Admin: 05/10/17 23:02 Dose: 400 mcg Tiotropium [place] (Spiriva) 1 puff IN DAILY(RESP) [facility] Last Admin: 05/10/17 07:58 Dose: 1 puff Topiramate (Topamax) 100 mg PO Q12 [facility] Last Admin: 05/11/17 09:03 Dose: 100 mg [...] is eminent F/U in 1-2 weeks [facility] Consultationon 05-10-2017 Consultation [facility] Patient: VELIA BAGLEY [address] MR#: [id number] [place] [address] : [address] Chris Belcher MD Dept: Transcribed Reports Loc: 8W 842-1 Consultation Service Dt: 05/10/17 Report#: [id number] Adm Dt: 05/09/17 Dis Dt: CONSULTATION REPORT [...] in the past by urology at the [facility] and states that for approximately 6 months in 2011 he required self-catheterization. PAST MEDICAL HISTORY: Left lower extremity DVT, history of asthma, migraines, history of torticollis with Botox injections, hip bursitis, peripheral neuropathy, chronic lumbar radiculopathy, carpal tunnel syndrome, osteoarthritis, hypertension. HOME MEDICATIONS: Albuterol, almotriptan malate, amitriptyline, Eliquis, Symbicort inhaler, Celebrex, Flonase, Mccune, losartan/hydrochlorothia zide, Singulair, Klor-Con, Lyrica, Spiriva, Topamax, [...] for courtesy of this consultation. Swapnil Kaiser#: [id number] C#: [id number] DT#: 05/10/2017 11:21:23 05/11/17 1042 Normal [facility] General Medical Progress Not penny 05-10-2017 General Medical Progress Note [facility] Patient: VELIA BAGLEY[address] MR#: [id number] [place], [place] [address] : 1960 OrdSindi Clarke: Dept: PDOC Loc: 8W 842-1 General Medical Progress Note Service Dt: 05/10/17 Report#: [id number] Adm Dt: 05/09/17 Dis Dt: General-Medical Progress [...] fact proven as objective by the neurologist medical sales consultant, the patient had significant difficulty in [...] ml Apixaban (Eliquis) 5 mg PO BID [facility] Last Admin: 05/10/17 10:04 Dose: 5 mg Dextrose (Dextrose Syringe) 50 ml IV Q15M PRN PRN Reason: Hypoglycemia Fluticasone Propionate (Flonase) 1 spray EACH NSTRL DAILY [facility] Last Admin: 05/10/17 10:04 Dose: 1 spray Glucagon (Glucagon) 1 mg IM Q15M PRN PRN Reason: Hypoglycemia Potassium Chloride 40 meq/ (Sodium Chloride) 270 mls @ 67.5 mls/hr IVPB LAB PRN PRN Reason: HYPOKALEMIA Montelukast Sodium (Singulair) 10 mg PO SUPPER [facility] Last Admin: 05/09/17 17:34 Dose: 10 mg Potassium Bicarbonate (K-Lyte) 50 meq PO LAB PRN; Protocol PRN Reason: Based on Lab Parameters Last Admin: 05/09/17 16:49 Dose: 50 meq Potassium Chloride (K-Madison) 20 meq PO TID [facility] Last Admin: 05/10/17 10:04 Dose: 20 meq Pregabalin (Lyrica) 200 mg PO Q12 [facility] Last Admin: 05/10/17 10:04 Dose: 200 mg Fluticasone/Salmeterol (Advair 250/50 Mcg Inhaler) 1 puff IN BID(RESP) [facility] Last Admin: 05/10/17 07:57 Dose: 1 puff Tamsulosin HCl (Flomax) 400 mcg PO QHS [facility] Tiotropium [place] (Spiriva) 1 puff IN DAILY(RESP) [facility] Last Admin: 05/10/17 07:58 Dose: 1 puff Topiramate (Topamax) 100 mg PO Q12 [facility] Last Admin: 05/10/17 10:04 Dose: 100 mg [...] weakness is certainly concerning Pertinent the neurologist medical sales consultant the patient needs physical therapy and [...] muscle relaxant DVT GI prophylaxis measures [facility] Hip Lt Incl Pelvis: 2-3 [facility] n 05-10-2017 Hip Lt Incl Pelvis: 2-3 [facility] Patient: VELIA BAGLEY [address] [facility] MR#: [id number] [place], [place] [address] : [address] Mathew Miller MD Dept: Diagnostic Imaging Loc: 8W 842-1 DI REPORT Service Dt:05/09/17 Report#: [id number] Adm Dt: 05/09/17 Dis Dt: Comments: STUDY: Pelvis and left hip date05/09/2017. INDICATION: Pain and weakness COMPARISON: None. ACCESSION NUMBER(S): [id number] ORDERING CLINICIAN: Mathew Miller TECHNIQUE: AP pelvis and AP and frogleg lateral left hip radiographs. FINDINGS: No fracture or dislocation is evident.Mild degenerative changes seen of the hips.The soft tissues are grossly unremarkable. IMPRESSION: Mild degenerative changes seen of the hips. Dictated by: Francis Romero Electronically Signed by: Francis Romero 05/10/2017 12:56 PM [facility] Lumbar Spine W/Flex/Exten-6V wson 05-10-2017 Lumbar Spine W/Flex/Exten-6Vws [facility] Patient: VELIA BAGLEY MR#: [id number] [place], [place] [address] : [address] Mathew Miller MD Dept: Diagnostic Imaging Loc: DI REPORT Service Dt:05/09/17 Report#: [id number] Adm Dt: 05/09/17 Dis Dt: Comments: STUDY: Lumbar spine dated 05/09/2017. INDICATION: Pain. COMPARISON: None. ACCESSION NUMBER(S): [id number] ORDERING CLINICIAN: Mathew Miller TECHNIQUE: AP, lateral, [...] by: Francis Romero 05/10/2017 12:58 PM [facility] Neurology Progress Noteon Neurology Progress Note [facility] Patient: VELIA BAGLEY MR#: [id number] [place], [place] [address] : 1960 Ord[address] : Dept: PDOC Loc: Neurology Progress Note Service Dt: 05/10/17 Report#: [id number] Adm Dt: 05/09/17 Dis Dt: Neurology Progress [...] extremity weakness. The patient was taken to [facility] and evaluated in the emergency room for an acute stroke. He had a CT scan of the brain that was negative for any acute process. The patient's NIH stroke scale score was 2. The ER staff called me and we discussed the case. The patient was to be transferred to [place] for further workup and care. The patient [...] DARCY Apixaban (Eliquis) 5 mg PO BID [facility] Last Admin: 05/10/17 10:04 Dose: 5 mg Celecoxib (Celebrex) 400 mg PO BID [facility] Dextrose (Dextrose Syringe) 50 ml IV Q15M PRN PRN Reason: Hypoglycemia Diazepam (Valium) 10 mg PO TID PRN PRN Reason: Anxiety Last Admin: 05/10/17 15:25 Dose: 10 mg Fluticasone Propionate (Flonase) 1 spray EACH NSTRL DAILY [facility] Last Admin: 05/10/17 10:04 Dose: 1 spray Glucagon (Glucagon) 1 mg IM Q15M PRN PRN Reason: Hypoglycemia Hydrochlorothiazide (Esidrix) 25 mg PO DAILY [facility] Potassium Chloride 40 meq/ (Sodium Chloride) 270 mls @ 67.5 mls/hr IVPB LAB PRN PRN Reason: HYPOKALEMIA Losartan Potassium (Cozaar) 100 mg PO DAILY [facility] Montelukast Sodium (Singulair) 10 mg PO SUPPER [facility] Last Admin: 05/09/17 17:34 Dose: 10 mg Almotriptan 12.5 Mg 0 each PO VARIABLE PRN PRN Reason: MIGRAINE Potassium Bicarbonate (K-Lyte) 50 meq PO LAB PRN; Protocol PRN Reason: Based on Lab Parameters Last Admin: 05/09/17 16:49 Dose: 50 meq Potassium Chloride (K-Madison) 20 meq PO TID [facility] Last Admin: 05/10/17 13:53 Dose: 20 meq Pregabalin (Lyrica) 200 mg PO Q12 [facility] Last Admin: 05/10/17 10:04 Dose: 200 mg Fluticasone/Salmeterol (Advair 250/50 Mcg Inhaler) 1 puff IN BID(RESP) [facility] Last Admin: 05/10/17 07:57 Dose: 1 puff Tamsulosin HCl (Flomax) 400 mcg PO QHS [facility] Tiotropium [place] (Spiriva) 1 puff IN DAILY(RESP) [facility] Last Admin: 05/10/17 07:58 Dose: 1 puff Topiramate (Topamax) 100 mg PO Q12 [facility] Last Admin: 05/10/17 10:04 Dose: 100 mg [...] 05/09/17 15:22 05/09/17 15:25 05/10/17 16:48 Normal [facility] Basic Metabolic Panel $$$on 05-09-2017 Potassium molar conc 2.7 mmol/L Critically abnormal 3.5-5.1 [facility] Comment on above: Result Comment: CALL ED AND REBACK RESULTS AT 1024 BY CV TO LETHA GONZALEZ Performed By: #### C BC, BMP, LDLP ####[facility] [place] [address] Anion gap 14.7 mmol/L Normal [facility] Comment on above: Performed By: #### C BC, BMP, LDLP ####[facility] [place] [address] 86565 BUN (urea nitrogen) 24 mg/dL High 7-18 [facility] Comment on above: Performed By: #### C BC, BMP, LDLP ####[facility] [place] [address] 33891 Calcium 8.7 mg/dL Normal 8.5-10.1 [facility] Comment on above: Performed By: #### C BC, BMP, LDLP ####[facility] [place] [address] Chloride 105 mmol/L Normal 98-107 [facility] Comment on above: Performed By: #### C BC, BMP, LDLP ####[facility] [place] [address]44 CO2 26 mmol/L Normal 21-32 [facility] Comment on above: Performed By: #### C BC, BMP, LDLP ####[facility] [place] [address] Creatinine 1.1 mg/dL Normal 0.6-1.3 [facility] Comment on above: Performed By: #### C BC, BMP, LDLP ####[facility] [place] [address] 23849 Creatinine 77 mL/min Low 94-145 [facility] Comment on above: Performed By: #### C BC, BMP, LDLP ####[facility] [place] [address] eGFR (non-black) mL/min/{1.73_m2} Normal [facility] Comment on above: Result Comment: eGFR Units of measure: mL/min/1.73 m 2 Performed By: #### C BC, BMP, LDLP ####[facility] [place] [address] Glucose mass conc 132 mg/dL High 74-106 [facility] Comment on above: Performed By: #### C BC, BMP, LDLP ####[facility] [place] [address] Sodium 143 mmol/L Normal 136-145 [facility] Comment on above: Performed By: #### C BC, BMP, LDLP ####[facility] [place] [address] Brain Without Contraston Brain Without Contrast [facility] Patient: VELIA BAGLEY [address] [facility] MR#: [id number] [place], [place] [address] : [address] Chris Belcher MD Dept: Diagnostic Imaging Loc: 8W 842-1 DI REPORT Service Dt:05/09/17 Report#: [id number] Adm Dt: 05/09/17 Dis Dt: Comments: STUDY: MR Brain Without Contrast; MR Head W/O Contrast; MR Neck W/O Contrast; 05/09/2017 10:45 am INDICATION: tia. COMPARISON: None. ACCESSION NUMBER(S): [id number]; [id number]; [id number] ORDERING CLINICIAN: Chris Belcher TECHNIQUE: Axial T2, FLAIR, DWI, gradient echo and sagittal and coronal T1 weighted images of brain were acquired. Additionally, 3D rsmb-hb-muvuqf MRA of the cervical and intracranial vasculature [...] by: Sally Carr 05/09/2017 12:00 PM Normal [facility] Complete Blood Count w/diff $$on 05-09-2017 Basophils Auto #/vol (Bld) 0.1 10 /uL Normal 0.04-0.9 [facility] Comment on above: Performed By: #### C REZA GERBER LDLP ####[address] [address] Basophils/100 WBC Auto (Bld) 1 % Normal 0-1 [facility] Comment on above: Performed By: #### REZA OLIVAS, LDLP ####[facility] [place] [address] Eosinophils 0.1 10 3/uL Normal 0.03-0.6 [facility] Comment on above: Performed By: #### C REZA GERBER, LDLP ####[facility] [place] [address] Eosinophils/100 leukocytes 1 % Normal 0-3 [facility] Comment on above: Performed By: #### REZA OLIVAS, LDLP ####[facility] [place] [address] Erythrocyte distribution width Auto Ratio (RBC) 14.7 % High 11.5-14.5 [facility] Comment on above: Performed By: #### REZA OLIVAS, LDLP ####[facility] [place] [address] 88736 Erythrocytes (RBC) 5.42 10 6/uL Normal 4.5-6.0 [facility] Comment on above: Performed By: #### C REZA GERBER, LDLP ####[facility] [place] [address] Hematocrit (HCT) 48.6 % Normal 39-50 [facility] Comment on above: Performed By: #### C BC, BMP, LDLP ####[address] [address] Hemoglobin mass conc (Bld) 16.1 g/dL Normal 13.0-17.3 [facility] Comment on above: Performed By: #### C BC, BMP, LDLP ####[address] [address] Immature Gran# (Auto) 0.0 10 3/uL Normal [facility] Comment on above: Performed By: #### C BC, BMP, LDLP ####[address] [address] Immature granulocytes #/vol (Bld) 0.5 % Normal 0.0-1.2 [facility] Comment on above: Performed By: #### C BC, BMP, LDLP ####[address] [address] Lymphocytes 3.0 10 3/uL Normal 1-3.5 [facility] Comment on above: Performed By: #### C BC, BMP, LDLP ####[address] [address] Lymphocytes/100 leukocytes 35 % Normal 24-44 [facility] Comment on above: Performed By: #### C BC, BMP, LDLP ####[address] [address] MCH 29.7 pg Normal 27-34 [facility] Comment on above: Performed By: #### C BC, BMP, LDLP ####[facility] [place] [address] MCH 33.1 g/dL Normal 33-37 [facility] Comment on above: Performed By: #### C BC, BMP, LDLP ####[facility] [place] [address] MCV 89.7 fL Normal 80-100 [facility] Comment on above: Performed By: #### C BC, BMP, LDLP ####[facility] [place] [address]647 Monocytes 0.6 10 3/uL Normal 0.04-0.9 [facility] Comment on above: Performed By: #### C BC, BMP, LDLP ####[address] [address] Monocytes/100 leukocytes 6 % Normal 1-8 [facility] Comment on above: Performed By: #### C BC, BMP, LDLP ####[address] [address] Neutrophils 4.9 10 3/uL Normal 1.8-7.0 [facility] Comment on above: Performed By: #### C BC, BMP, LDLP ####[address] [address] Neutrophils/100 leukocytes 57 % Normal 42-76 [facility] Comment on above: Performed By: #### C BC, BMP, LDLP ####[address] [address] Nucleated erythrocytes 0.0 % Normal 0.0-0.2 [facility] Comment on above: Performed By: #### C BC, BMP, LDLP ####[address] [address] Platelet mean volume (PMV) 9.0 fL Normal 7.4-10.4 [facility] Comment on above: Performed By: #### C BC, BMP, LDLP ####[facility] [place] [address] Platelets 256 10 3/uL Normal 150-400 [facility] Comment on above: Performed By: #### C REZA GERBER, HENRYP ####[facility] [place], [place] [id number] WBC (Leukocytes) 8.6 10 3/uL Normal 4.0-11.0 [facility] Comment on above: Performed By: #### C ZABRINA, REZA, LDLP ####[facility] [place] [address] Consultation Reporton 2017 Consultation Report [facility] Patient: VELIA BAGLEY [address] [facility] MR#: [id number] [place], [place] [address] : 1960 Ord. Clarke: Dept: PDOC Loc: 8W 842-1 Consultation Service Dt: 05/09/17 Report#: [id number] Adm Dt: 05/09/17 Dis Dt: Initial Physician [...] extremity weakness. The patient was taken to [facility] and evaluated in the emergency room for an acute stroke. He had a CT scan of the brain that was negative for any acute process. The patient's NIH stroke scale score was 2. The ER staff called me and we discussed the case. The patient was to be transferred to [place] for further workup and care. Currently the [...] he was fired from his job at [employer] yesterday. The patient states that he is [...] Taken Unknown] HYDROcodone 5 mg/ACETAM 325 mg [Mccune 5/325 mg] 1 tab PO TID PRN 05/09/17 [History Last Taken Unknown] Losartan/Hydrochlorothia zide [Losartan-Hctz 100-25 mg Tab] 1 each PO DAILY 05/09/17 [History Last Taken Unknown] Montelukast Sodium [Singulair] 10 mg PO SUPPER 05/09/17 [History Last Taken Unknown] Potassium Chloride [Klor-Con] 20 meq PO TID 05/09/17 [History Last Taken Unknown] Pregabalin [Lyrica] 200 mg PO Q12 05/09/17 [History Last Taken Unknown] Tiotropium [place] [Spiriva] 18 mcg IN DAILY 05/09/17 [History [...] Breath Apixaban (Eliquis) 5 mg PO BID [facility] Last Admin: 05/09/17 12:28 Dose: 5 mg Dextrose (Dextrose Syringe) 50 ml IV Q15M PRN PRN Reason: Hypoglycemia Fluticasone Propionate (Flonase) 1 spray EACH NSTRL DAILY [facility] Last Admin: 05/09/17 11:05 Dose: 1 spray Glucagon (Glucagon) 1 mg IM Q15M PRN PRN Reason: Hypoglycemia Potassium Chloride 40 meq/ (Sodium Chloride) 270 mls @ 67.5 mls/hr IVPB LAB PRN PRN Reason: HYPOKALEMIA Montelukast Sodium (Singulair) 10 mg PO SUPPER [facility] Potassium Bicarbonate (K-Lyte) 50 meq PO LAB PRN; Protocol PRN Reason: Based on Lab Parameters Last Admin: 05/09/17 11:09 Dose: 50 meq Potassium Chloride (K-Madison) 20 meq PO TID [facility] Last Admin: 05/09/17 14:03 Dose: 20 meq Pregabalin (Lyrica) 200 mg PO Q12 [facility] Last Admin: 05/09/17 11:05 Dose: 200 mg Fluticasone/Salmeterol (Advair 250/50 Mcg Inhaler) 1 puff IN BID(RESP) [facility] Last Admin: 05/09/17 08:53 Dose: 1 puff Tiotropium [place] (Spiriva) 1 puff IN DAILY(RESP) [facility] Last Admin: 05/09/17 08:55 Dose: 1 puff Topiramate (Topamax) 100 mg PO Q12 [facility] Last Admin: 05/09/17 11:04 Dose: 100 mg - Diagnostic Studies Lab Data: Labs (last 24 hrs) 05/09/17 09:32 WBC 8.6 RBC 5.42 Hgb 16.1 Hct 48.6 MCV 89.7 MCH 29.7 MCHC 33.1 RDW 14.7 H Plt Count 256 MPV 9.0 Immature Gran % (Auto) 0.5 Neut % (Auto) 57 Lymph % (Auto) 35 [place] % (Auto) 6 Eos % (Auto) 1 Baso % (Auto) 1 Nucleat RBC Rel Count 0.0 Immature Gran # (Auto) 0.0 Neut # (Auto) 4.9 Lymph # (Auto) 3.0 [place] # (Auto) 0.6 Eos # (Auto) 0.1 [...] in rehabilitation. 05/09/17 15:22 05/09/17 15:25 Normal [facility] Echocardiogramon 05-09-2017 Echocardiogram [facility] , [address] [place] [address], [place] [id number] and TRANSTHORACIC ECHOCARDIOGRAM REPORT Patient Name: VELIA Isaac Physician: SANJANA Medina DO Study Date: 05/09/2017 Referring Chris Belcher Physician: MRN/PID: [id number] PCP: Patient Department [facility] Location: Accession/Order#: [id number] Patient Location: 8W Date of : 1960 57 Nurse: years Gender: M Laminator Preforms: Fredy Zapata RDCS Admit Date: 05/08/2017 Additional Staff: Admission Status: Inpatient - CC Report to: CVC Routine Height: 178.00 cm CC Report to: Weight: 100.00 kg CC Report to: BSA: 2.18 m2 Study Type: Echo Blood Pressure: 142 /78 mmHg Diagnosis/ICD: R53.1 - Weakness Indication: R/O CVA Procedure/CPT: Echo Complete w/Full Doppler ([id number]) Patient History: Pertinent History: Weakness. Study Detail: [...] at 1:30:46 PM Wall Scoring Final [facility] Head W/O Contraston 05-09-19 Head W/O Contrast [facility] Patient: VELIA BAGLEY[address] MR#: [id number] [place], [place] [address] : 1960 [address] Chris Belcher MD Dept: Diagnostic Imaging Loc: 8 842-1 DI REPORT Service Dt:05/09/17 Report#: [id number] Adm Dt: 05/09/17 Dis Dt: Comments: STUDY: MR Brain Without Contrast; MR Head W/O Contrast; MR Neck W/O Contrast; 05/09/2017 10:45 am INDICATION: tia. COMPARISON: None. ACCESSION NUMBER(S): [id number]; [id number]; [id number] ORDERING CLINICIAN: Chris Belcher TECHNIQUE: Axial T2, FLAIR, DWI, gradient echo and sagittal and coronal T1 weighted images of brain were acquired. Additionally, 3D zytk-bl-xqaukw MRA of the cervical and intracranial vasculature [...] by: Sally Carr 05/09/2017 12:00 PM [facility] History AND Physicalon 05-09 History AND Physical [facility] Patient: VELIA BAGLEY [address] MR#: [id number] [place], [place] [address] : 1960 OrdSindi Clarke: Dept: PDOC Loc: 8W 842-1 History Physical Service Dt: 05/09/17 Report#: [id number] Adm Dt: 05/09/17 Dis Dt: History and [...] Polyneuropathy, and Hypertension who was transferred from [facility] in [place], [place] with chief complaint of Left Lower [...] dependent upon prior to yesterday. At [facility] he underwent a CTH which was [...] Taken Unknown] HYDROcodone 5 mg/ACETAM 325 mg [Mccune 5/325 mg] 1 tab PO TID PRN 05/09/17 [History Last Taken Unknown] Losartan/Hydrochlorothia zide [Losartan-Hctz 100-25 mg Tab] 1 each PO DAILY 05/09/17 [History Last Taken Unknown] Montelukast Sodium [Singulair] 10 mg PO SUPPER 05/09/17 [History Last Taken Unknown] Potassium Chloride [Klor-Con] 20 meq PO TID 05/09/17 [History Last Taken Unknown] Pregabalin [Lyrica] 200 mg PO Q12 05/09/17 [History Last Taken Unknown] Tiotropium [place] [Spiriva] 18 mcg IN DAILY 05/09/17 [History [...] Changes noted below: Date/Time Attending Physician [facility] Lipid Profileon 05-09-2017 Cholesterol 182 mg/dL Normal 0-200 [facility] Comment on above: Performed By: #### C BC, BMP, LDLP ####[address] [address] Cholesterol to HDL Ratio 2.39 {ratio} Normal 0-6.9 [facility] Comment on above: Result Comment: CHD Risk: Men WomenLowest <3.8 <2.9Low 3.9-4.7 3.0-3.6Average 4.8-5.9 3.7-4.6Moderate 6.0-6.9 4.7-5.6High >6.9 >5.6 Performed By: #### C BC, BMP, LDLP ####[address] [address] HDL Cholesterol 76 mg/dL Normal 39-96 [facility] Comment on above: Performed By: #### C BC, BMP, LDLP ####[address] [address] LDL Cholesterol 67 mg/dL Normal 0-130 [facility] Comment on above: Performed By: #### C BC, BMP, LDLP ####[address] [address] Triglycerides, Serum 195 mg/dL High 30-150 [facility] Comment on above: Performed By: #### C BC, BMP, LDLP ####[address] [address] Neck W/O Contraston 05-09-19 18 Neck W/O Contrast [facility] Patient: VELIA BAGLEY [address] [facility] MR#: [id number] [place], [place] [address] : 1960 [address] Chris Belcher MD Dept: Diagnostic Imaging Loc: 8W 842-1 DI REPORT Service Dt:05/09/17 Report#: [id number] Adm Dt: 05/09/17 Dis Dt: Comments: STUDY: MR Brain Without Contrast; MR Head W/O Contrast; MR Neck W/O Contrast; 05/09/2017 10:45 am INDICATION: tia. COMPARISON: None. ACCESSION NUMBER(S): [id number]; [id number]; [id number] ORDERING CLINICIAN: Chris Belcher TECHNIQUE: Axial T2, FLAIR, DWI, gradient echo and sagittal and coronal T1 weighted images of brain were acquired. Additionally, 3D ledb-pn-cehttb MRA of the cervical and intracranial vasculature [...] by: Sally Carr 05/09/2017 12:00 PM Normal [facility] Potassiumon 05-09-2017 Potassium molar conc 4.5 mmol/L Normal 3.5-5.1 [facility] Comment on above: Order Comment: Add o n to today's blood, if available? N Performed By: #### K ####[facility] [place] [address] Potassium molar conc 3.3 mmol/L Low 3.5-5.1 [facility] Comment on above: Order Comment: Add o n to today's blood, if available? N Performed By: #### K ####[address] [address] Vital Signs Date Time Vital Sign Value Performing Clinician Facility 09-13-2024 12:26-0400 Body mass index (BMI) [Ratio] 26.58 kg/m2 Courtney Brown MD Work Phone: [facility] 09-13-2024 12:26-0400 Body weight 81.65 kg Courtney Brown MD Work Phone: [facility] 09-13-2024 12:26-0400 Heart rate 78 /min Courtney Brown MD Work Phone: [facility] 09-13-2024 12:26-0400 SaO2% (BldA) [Mass fraction] 92 % Courtney Brown MD Work Phone: [facility] 09-12-2024 14:18-0400 Body height 175.3 cm Jessica Moore RN [employer] Work Phone: [facility] 09-12-2024 14:18-0400 Body mass index (BMI) [Ratio] 26.73 kg/m2 Jessica Moore RN [employer] Work Phone: [facility] 09-12-2024 14:18-0400 Body weight 82.1 kg Jessica Moore RN [employer] Work Phone: [facility] 09-12-2024 14:18-0400 Diastolic blood pressure 85 mm[Hg] Jessica Moore RN [employer] Work Phone: [facility] 09-12-2024 14:18-0400 Heart rate 88 /min Jessica Moore RN [employer] Work Phone: [facility] 09-12-2024 14:18-0400 Respiratory rate 17 /min Jessica Moore RN [employer] Work Phone: [facility] 09-12-2024 14:18-0400 Systolic blood pressure 143 mm[Hg] Jessica Moore RN [employer] Work Phone: [facility] 08-10-2024 11:47-0400 Body height 175.3 cm Jodie Matthews MD Work Phone: [facility] 08-10-2024 11:47-0400 Body mass index (BMI) [Ratio] 27.02 kg/m2 Jodie Matthews MD Work Phone: [facility] 08-10-2024 11:47-0400 Body weight 83.01 kg Jodie Matthews MD Work Phone: [facility] 08-10-2024 11:47-0400 Diastolic blood pressure 69 mm[Hg] Jodie Matthews MD Work Phone: [facility] 08-10-2024 11:47-0400 Heart rate 100 /min Jodie Matthews MD Work Phone: [facility] 08-10-2024 11:47-0400 Respiratory rate 17 /min Jodie Matthews MD Work Phone: [facility] 08-10-2024 11:47-0400 Systolic blood pressure 92 mm[Hg] Jodie Matthews MD Work Phone: [facility] 07-25-2024 11:20-0400 Body mass index (BMI) [Ratio] 28.35 kg/m2 Rich Magana MD MPH Work Phone: [facility] 07-25-2024 11:20-0400 Body temperature 96.6 [degF] Rich Magana MD MPH Work Phone: [facility] 07-25-2024 11:20-0400 Body weight 87.09 kg Rich Magana MD MPH Work Phone: [facility] 07-25-2024 11:20-0400 Diastolic blood pressure 81 mm[Hg] Rich Magana MD MPH Work Phone: [facility] 07-25-2024 11:20-0400 Heart rate 101 /min Rich Magana MD MPH Work Phone: [facility] 07-25-2024 11:20-0400 Respiratory rate 18 /min Rich Magana MD MPH Work Phone: [facility] 07-25-2024 11:20-0400 SaO2% (BldA) [Mass fraction] 96 % Rich Magana MD MPH Work Phone: [facility] Comment on above: RA 07-25-2024 11:20-0400 Systolic blood pressure 118 mm[Hg] Rich Magana MD MPH Work Phone: [facility] 07-07-2024 10:32-0500 Body height 176.53 cm Rachel Rayo MD Work Phone: [facility] 07-07-2024 10:32-0500 Body mass index (BMI) [Ratio] 28.6 kg/m2 Rachel Rayo MD Work Phone: [facility] 07-07-2024 10:32-0500 Body weight 89.35 kg Rachel Rayo MD Work Phone: [facility] 07-07-2024 10:32-0500 Diastolic blood pressure 88 mm[Hg] Rachel Rayo MD Work Phone: [facility] 07-07-2024 10:32-0500 Heart rate 78 /min Rachel Rayo MD Work Phone: [facility] 07-07-2024 10:32-0500 Systolic blood pressure 145 mm[Hg] Rachel Rayo MD Work Phone: [facility] 07-06-2024 14:27-0500 Body temperature 97.81 [degF] Jessica Moore RN [employer] Work Phone: [facility] 07-06-2024 14:27-0500 Diastolic blood pressure 68 mm[Hg] Jessica Moore RN [employer] Work Phone: [facility] 07-06-2024 14:27-0500 Heart rate 80 /min Jessica Moore RN [employer] Work Phone: [facility] 07-06-2024 14:27-0500 Systolic blood pressure 138 mm[Hg] Jessica Moore RN [employer] Work Phone: [facility] 06-14-2024 17:03-0500 Diastolic blood pressure 95 mm[Hg] Courtney Brown MD Work Phone: [facility] 06-14-2024 17:03-0500 Heart rate 95 /min Courtney Brown MD Work Phone: [facility] 06-14-2024 17:03-0500 SaO2% (BldA) [Mass fraction] 86 % Courtney Brown MD Work Phone: [facility] 06-14-2024 17:03-0500 Systolic blood pressure 150 mm[Hg] Courtney Brown MD Work Phone: [facility] 06-09-2024 11:30-0500 Heart rate 73 /min Issa Gonzales [facility] 06-09-2024 11:30-0500 SaO2% (BldA) [Mass fraction] 96 % Issa Gonzales [facility] 06-09-2024 11:30-0500 Diastolic blood pressure 82 mm[Hg] Issa Gonzales [facility] 06-09-2024 11:30-0500 Mean blood pressure 101 mm[Hg] Issa Gonzales [facility] 06-09-2024 11:30-0500 Systolic blood pressure 140 mm[Hg] Issa Gonzales [facility] 06-09-2024 11:28-0500 Respiratory rate 16 /min Issa Gonzales [facility] 06-09-2024 11:24-0500 Diastolic blood pressure 85 mm[Hg] Issa Gonzales [facility] 06-09-2024 11:24-0500 Heart rate 75 /min Issa Gonzales [facility] 06-09-2024 11:24-0500 Respiratory rate 16 /min Issa Gonzales [facility] 06-09-2024 11:24-0500 SaO2% (BldA) [Mass fraction] 95 % Issa Gonzales [facility] 06-09-2024 11:24-0500 Systolic blood pressure 139 mm[Hg] Issa Gonzales [facility] 06-09-2024 10:05-0500 Heart rate 79 /min Issa Gonzales [facility] 06-09-2024 10:05-0500 SaO2% (BldA) [Mass fraction] 95 % Issa Gonzales [facility] 06-09-2024 10:05-0500 Body temperature 97.7 [degF] Issa Gonzales [facility] 06-09-2024 10:05-0500 Diastolic blood pressure 97 mm[Hg] Issa Gonzales [facility] 06-09-2024 10:05-0500 Mean blood pressure 117 mm[Hg] Issa Gonzales [facility] 06-09-2024 10:05-0500 Systolic blood pressure 155 mm[Hg] Issa Gonzales [facility] 06-09-2024 10:01-0500 Respiratory rate 16 /min Issa Gonzales [facility] 06-02-2024 13:07-0500 Body temperature 97.59 [degF] Jessica Moore RN [employer] Work Phone: [facility] 06-02-2024 13:07-0500 Diastolic blood pressure 82 mm[Hg] Jessica Moore RN [employer] Work Phone: [facility] 06-02-2024 13:07-0500 Heart rate 76 /min Jessica Moore RN [employer] Work Phone: [facility] 06-02-2024 13:07-0500 Respiratory rate 18 /min Jessica Moore RN [employer] Work Phone: [facility] 06-02-2024 13:07-0500 Systolic blood pressure 138 mm[Hg] Jessica Moore RN [employer] Work Phone: [facility] 05-31-2024 14:57-0500 Body weight 87.99 kg Rachel Rayo MD Work Phone: [facility] 05-31-2024 14:57-0500 Diastolic blood pressure 83 mm[Hg] Rachel Rayo MD Work Phone: [facility] 05-31-2024 14:57-0500 Heart rate 84 /min Rachel Rayo MD Work Phone: [facility] 05-31-2024 14:57-0500 Respiratory rate 20 /min Rachel Rayo MD Work Phone: [facility] 05-31-2024 14:57-0500 SaO2% (BldA) [Mass fraction] 96 % Rachel Rayo MD Work Phone: [facility] 05-31-2024 14:57-0500 Systolic blood pressure 136 mm[Hg] Rachel Rayo MD Work Phone: [facility] 05-11-2024 11:05-0500 Body mass index (BMI) [Ratio] 28.65 kg/m2 Jodie Matthews MD Work Phone: [facility] 05-11-2024 11:05-0500 Body weight 88 kg Jodie Matthews MD Work Phone: [facility] 05-11-2024 11:05-0500 Diastolic blood pressure 80 mm[Hg] Jodie Matthews MD Work Phone: [facility] 05-11-2024 11:05-0500 Heart rate 72 /min Jodie Matthews MD Work Phone: [facility] 05-11-2024 11:05-0500 Respiratory rate 24 /min Jodie Matthews MD Work Phone: [facility] 05-11-2024 11:05-0500 Systolic blood pressure 120 mm[Hg] Jodie Matthews MD Work Phone: [facility] 05-09-2024 14:14-0500 Diastolic blood pressure 90 mm[Hg] Issa Gonzales [facility] 05-09-2024 14:14-0500 Heart rate 77 /min Issa Gonzales [facility] 05-09-2024 14:14-0500 Mean blood pressure 107 mm[Hg] Issa Gonzales [facility] 05-09-2024 14:14-0500 Respiratory rate 16 /min Issa Gonzales [facility] 05-09-2024 14:14-0500 Systolic blood pressure 140 mm[Hg] Issa Gonzales [facility] 04-13-2024 10:23-0500 Body mass index (BMI) [Ratio] 28.74 kg/m2 Rich Magana MD MPH Work Phone: [facility] 04-13-2024 10:23-0500 Body temperature 98.1 [degF] Rich Magana MD MPH Work Phone: [facility] 04-13-2024 10:23-0500 Body weight 88.27 kg Rich Magana MD MPH Work Phone: [facility] 04-13-2024 10:23-0500 Diastolic blood pressure 90 mm[Hg] Rich Magana MD MPH Work Phone: [facility] 04-13-2024 10:23-0500 Heart rate 88 /min Rich Magana MD MPH Work Phone: [facility] 04-13-2024 10:23-0500 Respiratory rate 18 /min Rich Magana MD MPH Work Phone: [facility] 04-13-2024 10:23-0500 SaO2% (BldA) [Mass fraction] 97 % Rich Magana MD MPH Work Phone: [facility] Comment on above: RA 04-13-2024 10:23-0500 Systolic blood pressure 170 mm[Hg] Rich Magana MD MPH Work Phone: [facility] 04-07-2024 14:02-0500 Body temperature 97.5 [degF] Jessica Moore RN [employer] Work Phone: [facility] 04-07-2024 14:02-0500 Diastolic blood pressure 82 mm[Hg] Jessica Moore RN [employer] Work Phone: [facility] 04-07-2024 14:02-0500 Heart rate 78 /min Jessica Moore RN [employer] Work Phone: [facility] 04-07-2024 14:02-0500 Respiratory rate 20 /min Jessica Moore RN [employer] Work Phone: [facility] 04-07-2024 14:02-0500 Systolic blood pressure 138 mm[Hg] Jessica Moore RN [employer] Work Phone: [facility] 03-08-2024 09:27-0500 Body height 175.3 cm Courtney Brown MD Work Phone: [facility] 03-08-2024 09:27-0500 Body mass index (BMI) [Ratio] 27.32 kg/m2 Courtney Brown MD Work Phone: [facility] 03-08-2024 09:27-0500 Body weight 83.92 kg Courtney Brown MD Work Phone: [facility] 03-08-2024 09:27-0500 Heart rate 75 /min Courtney Brown MD Work Phone: [facility] 02-16-2024 10:04-0400 Body mass index (BMI) [Ratio] 26.58 kg/m2 Courtney Brown MD Work Phone: [facility] 02-16-2024 10:04-0400 Body weight 81.65 kg Courtney Brown MD Work Phone: [facility] 02-16-2024 10:04-0400 Diastolic blood pressure 79 mm[Hg] Courtney Brown MD Work Phone: [facility] 02-16-2024 10:04-0400 Heart rate 82 /min Courtney Brown MD Work Phone: [facility] 02-16-2024 10:04-0400 SaO2% (BldA) [Mass fraction] 94 % Courtney Brown MD Work Phone: [facility] 02-16-2024 10:04-0400 Systolic blood pressure 123 mm[Hg] Courtney Brown MD Work Phone: [facility] 02-10-2024 07:59-0400 Body height 176.53 cm MD Rachel Rayo Work Phone: [facility] 02-10-2024 07:59-0400 Body mass index (BMI) [Ratio] 25.8 kg/m2 MD Rachel Rayo Work Phone: [facility] 02-10-2024 07:59-0400 Body weight 80.51 kg MD Rachel Rayo Work Phone: [facility] 02-10-2024 07:59-0400 Diastolic blood pressure 82 mm[Hg] MD Rachel Rayo Work Phone: [facility] 02-10-2024 07:59-0400 Heart rate 70 /min MD Rachel Rayo Work Phone: [facility] 02-10-2024 07:59-0400 Respiratory rate 16 /min MD Rachel Rayo Work Phone: [facility] 02-10-2024 07:59-0400 SaO2% (BldA) [Mass fraction] 96 % MD Rachel Rayo Work Phone: [facility] 02-10-2024 07:59-0400 Systolic blood pressure 120 mm[Hg] MD Rachel Rayo Work Phone: [facility] 01-18-2024 10:50-0400 Diastolic blood pressure 76 mm[Hg] Iss[facility] Gonzales [facility] 01-18-2024 10:50-0400 Heart rate 81 /min Parsons Christian [facility] 01-18-2024 10:50-0400 Mean blood pressure 89 mm[Hg] Parsons [facility] 01-18-2024 10:50-0400 Respiratory rate 20 /min Issa Gonzales [facility] 01-18-2024 10:50-0400 Systolic blood pressure 114 mm[Hg] [facility] 01-11-2024 14:29-0400 Body mass index (BMI) [Ratio] 25.1 kg/m2 Jodie Matthews MD Work Phone: [facility] 01-11-2024 14:29-0400 Body weight 77.11 kg Jodie Matthews MD Work Phone: [facility] 01-11-2024 14:29-0400 Diastolic blood pressure 76 mm[Hg] Jodie Matthews MD Work Phone: [facility] 01-11-2024 14:29-0400 Heart rate 96 /min Jodie Matthews MD Work Phone: [facility] 01-11-2024 14:29-0400 Respiratory rate 20 /min Jodie Matthews MD Work Phone: [facility] 01-11-2024 14:29-0400 Systolic blood pressure 120 mm[Hg] Jodie Matthews MD Work Phone: [facility] 12-29-2023 08:57-0400 Heart rate 88 /min Iss[facility] Gonzales [facility] 12-29-2023 08:57-0400 SaO2% (BldA) [Mass fraction] 94 % Issa Gonzales [facility] 12-29-2023 08:57-0400 Diastolic blood pressure 73 mm[Hg] Issa Gonzales [facility] 12-29-2023 08:57-0400 Mean blood pressure 87 mm[Hg] Issa Gonzales [facility] 12-29-2023 08:57-0400 Systolic blood pressure 116 mm[Hg] Issa Gonzales [facility] 12-29-2023 08:57-0400 Respiratory rate 16 /min Issa Gonzales [facility] 12-29-2023 08:52-0400 Diastolic blood pressure 83 mm[Hg] Iss[facility] Gonzales [facility] 12-29-2023 08:52-0400 Heart rate 80 /min Issa Gonzales [facility] 12-29-2023 08:52-0400 Respiratory rate 14 /min Issa Gonzales [facility] 12-29-2023 08:52-0400 SaO2% (BldA) [Mass fraction] 98 % Issa Gonzales [facility] 12-29-2023 08:52-0400 Systolic blood pressure 107 mm[Hg] Issa Gonzales [facility] 12-29-2023 07:45-0400 Heart rate 98 /min Issa Gonzales [facility] 12-29-2023 07:45-0400 SaO2% (BldA) [Mass fraction] 95 % Iss[facility] Gonzales [facility] 12-29-2023 07:45-0400 Body temperature 97.88 [degF] Iss[facility] Gonzales [facility] 12-29-2023 07:44-0400 Diastolic blood pressure 86 mm[Hg] Iss[facility] Gonzales [facility] 12-29-2023 07:44-0400 Mean blood pressure 102 mm[Hg] Iss[facility] Gonzales [facility] 12-29-2023 07:44-0400 Systolic blood pressure 134 mm[Hg] Iss[facility] Gonzales [facility] 12-29-2023 07:44-0400 Respiratory rate 14 /min Issa Gonzales [facility] 12-04-2023 10:29-0400 Diastolic blood pressure 76 mm[Hg] Barbara Duron [facility] 12-04-2023 10:29-0400 Heart rate 102 /min Barbaracherise Duron [facility] 12-04-2023 10:29-0400 Mean blood pressure 87 mm[Hg] Barbara Duron [facility] 12-04-2023 10:29-0400 Respiratory rate 14 /min Barbara Duron [facility] 12-04-2023 10:29-0400 Systolic blood pressure 110 mm[Hg] Barbara Durno [facility] 12-02-2023 10:08-0400 Body temperature 97.8 [degF] MD Rachel Rayo Work Phone: [facility] 12-02-2023 10:08-0400 Body weight 75.74 kg MD Rachel Rayo Work Phone: [facility] 12-02-2023 10:08-0400 Diastolic blood pressure 91 mm[Hg] MD Rachel Rayo Work Phone: [facility] 12-02-2023 10:08-0400 Heart rate 104 /min MD Rachel Rayo Work Phone: [facility] 12-02-2023 10:08-0400 Respiratory rate 18 /min MD Rachel Rayo Work Phone: [facility] 12-02-2023 10:08-0400 SaO2% (BldA) [Mass fraction] 96 % MD Rachel Rayo Work Phone: [facility] 12-02-2023 10:08-0400 Systolic blood pressure 142 mm[Hg] MD Rachel Rayo Work Phone: [facility] 11-10-2023 11:41-0400 Body height 175.26 cm MD Rachel Rayo Work Phone: [facility] 11-10-2023 11:41-0400 Body mass index (BMI) [Ratio] 24.2 kg/m2 MD Rachel Rayo Work Phone: [facility] 11-10-2023 11:41-0400 Body weight 74.38 kg MD Rachel Rayo Work Phone: [facility] 11-10-2023 11:41-0400 Diastolic blood pressure 93 mm[Hg] MD Rachel Rayo Work Phone: [facility] 11-10-2023 11:41-0400 Heart rate 132 /min MD Rachel Rayo Work Phone: [facility] 11-10-2023 11:41-0400 SaO2% (BldA) [Mass fraction] 91 % MD Rachel Rayo Work Phone: [facility] 11-10-2023 11:41-0400 Systolic blood pressure 135 mm[Hg] MD Rachel Rayo Work Phone: [facility] 10-26-2023 15:36-0400 Body height 175.26 cm MD Rachel Rayo Work Phone: [facility] 10-26-2023 15:36-0400 Body mass index (BMI) [Ratio] 25.2 kg/m2 MD Rachel Rayo Work Phone: [facility] 10-26-2023 15:36-0400 Body temperature 97.6 [degF] MD Rachel Rayo Work Phone: [facility] 10-26-2023 15:36-0400 Body weight 77.56 kg MD Rachel Rayo Work Phone: [facility] 10-26-2023 15:36-0400 Diastolic blood pressure 91 mm[Hg] MD Rachel Rayo Work Phone: [facility] 10-26-2023 15:36-0400 Heart rate 120 /min MD Rachel Rayo Work Phone: [facility] 10-26-2023 15:36-0400 SaO2% (BldA) [Mass fraction] 93 % MD Rachel Rayo Work Phone: [facility] 10-26-2023 15:36-0400 Systolic blood pressure 148 mm[Hg] MD Rachel Rayo Work Phone: [facility] 10-17-2023 01:30-0400 Diastolic blood pressure 92 mm[Hg] MD Rachel Rayo Work Phone: [facility] 10-17-2023 01:30-0400 Heart rate 63 /min MD Rachel Rayo Work Phone: [facility] 10-17-2023 01:30-0400 SaO2% (BldA) [Mass fraction] 98 % MD Rachel Rayo Work Phone: [facility] 10-17-2023 01:30-0400 Systolic blood pressure 180 mm[Hg] MD Rachel Rayo Work Phone: [facility] 10-17-2023 01:00-0400 Respiratory rate 16 /min MD Rachel Rayo Work Phone: [facility] 10-16-2023 20:45-0400 Body height 175.26 cm MD Rachel Rayo Work Phone: [facility] 10-16-2023 20:45-0400 Body temperature 98 [degF] MD Rachel Rayo Work Phone: [facility] 10-16-2023 20:45-0400 Body weight 84.2 kg MD Rachel Rayo Work Phone: [facility] 10-12-2023 15:31-0400 Body mass index (BMI) [Ratio] 27.76 kg/m2 Jodie Matthews MD Work Phone: [facility] 10-12-2023 15:31-0400 Body weight 85.28 kg Jodie Matthews MD Work Phone: [facility] 10-12-2023 15:31-0400 Diastolic blood pressure 80 mm[Hg] Jodie Matthews MD Work Phone: [facility] 10-12-2023 15:31-0400 Heart rate 80 /min Jodie Matthews MD Work Phone: [facility] 10-12-2023 15:31-0400 Respiratory rate 20 /min Jodie Matthews MD Work Phone: [facility] 10-12-2023 15:31-0400 Systolic blood pressure 122 mm[Hg] Jodie Matthews MD Work Phone: [facility] 10-08-2023 10:37-0400 Body height 175.3 cm Salma Gandhi DO Work Phone: [facility] 10-08-2023 10:37-0400 Body mass index (BMI) [Ratio] 27.26 kg/m2 Salma Gandhi DO Work Phone: [facility] 10-08-2023 10:37-0400 Body weight 83.73 kg Christopher Tangen DO Work Phone: [facility] 10-08-2023 10:37-0400 Diastolic blood pressure 72 mm[Hg] Christopher Tangen DO Work Phone: [facility] 10-08-2023 10:37-0400 Heart rate 67 /min Christopher Tangen DO Work Phone: [facility] 10-08-2023 10:37-0400 SaO2% (BldA) [Mass fraction] 96 % Christopher Tangen DO Work Phone: [facility] 10-08-2023 10:37-0400 Systolic blood pressure 138 mm[Hg] Christopher Tangen DO Work Phone: [facility] 09-15-2023 13:50-0400 Body height 175.26 cm MD Rachel Rayo Work Phone: [facility] 09-15-2023 13:50-0400 Body mass index (BMI) [Ratio] 25.7 kg/m2 MD Rachel Rayo Work Phone: [facility] 09-15-2023 13:50-0400 Body weight 78.92 kg MD Rachel Rayo Work Phone: [facility] 09-15-2023 13:50-0400 Diastolic blood pressure 78 mm[Hg] MD Rachel Rayo Work Phone: [facility] 09-15-2023 13:50-0400 Heart rate 107 /min MD Rachel Rayo Work Phone: [facility] 09-15-2023 13:50-0400 Systolic blood pressure 113 mm[Hg] MD Rachel Rayo Work Phone: [facility] 09-04-2023 13:16-0400 Body temperature 97.2 [degF] MD Rachel Rayo Work Phone: [facility] 09-04-2023 13:16-0400 Body weight 81.64 kg MD Rachel Rayo Work Phone: [facility] 09-04-2023 13:16-0400 Diastolic blood pressure 62 mm[Hg] MD Rachel Rayo Work Phone: [facility] 09-04-2023 13:16-0400 Heart rate 87 /min MD Rachel Rayo Work Phone: [facility] 09-04-2023 13:16-0400 Respiratory rate 16 /min MD Rachel Rayo Work Phone: [facility] 09-04-2023 13:16-0400 SaO2% (BldA) [Mass fraction] 96 % MD Rachel Rayo Work Phone: [facility] 09-04-2023 13:16-0400 Systolic blood pressure 95 mm[Hg] MD Rachel Rayo Work Phone: [facility] 07-28-2023 13:18-0400 Body height 175.26 cm MD Rachel Rayo Work Phone: [facility] 07-28-2023 13:18-0400 Body mass index (BMI) [Ratio] 27.3 kg/m2 MD Rachel Rayo Work Phone: [facility] 07-28-2023 13:18-0400 Body temperature 97.9 [degF] MD Rachel Rayo Work Phone: [facility] 07-28-2023 13:18-0400 Body weight 83.97 kg MD Rachel Rayo Work Phone: [facility] 07-28-2023 13:18-0400 Diastolic blood pressure 72 mm[Hg] MD Rachel Rayo Work Phone: [facility] 07-28-2023 13:18-0400 Heart rate 90 /min MD Rachel Rayo Work Phone: [facility] 07-28-2023 13:18-0400 SaO2% (BldA) [Mass fraction] 96 % MD Rachel Rayo Work Phone: [facility] 07-28-2023 13:18-0400 Systolic blood pressure 118 mm[Hg] MD Rachel Rayo Work Phone: [facility] 07-15-2023 11:26-0400 Body mass index (BMI) [Ratio] 26.91 kg/m2 Jodie Matthews MD Work Phone: [facility] 07-15-2023 11:26-0400 Body temperature 98.6 [degF] Jodie Matthews MD Work Phone: [facility] 07-15-2023 11:26-040 Body weight 82.64 kg Jodie Matthews MD Work Phone: [facility] 07-15-2023 11:26-0400 Diastolic blood pressure 74 mm[Hg] Jodie Matthews MD Work Phone: [facility] 07-15-2023 11:26-0400 Systolic blood pressure 122 mm[Hg] Jodie Matthews MD Work Phone: [facility] 07-08-2023 13:12-0500 Heart rate 71 /min Barbara Bazari [facility] 07-08-2023 13:12-0500 SaO2% (BldA) [Mass fraction] 98 % Barbara Duorn [facility] 07-08-2023 13:12-0500 Diastolic blood pressure 75 mm[Hg] Barbara Bazari [facility] 07-08-2023 13:12-0500 Mean blood pressure 90 mm[Hg] Barbara Bazari [facility] 07-08-2023 13:12-0500 Systolic blood pressure 119 mm[Hg] Barbara Duron [facility] 07-08-2023 13:12-0500 Respiratory rate 16 /min Barbara Bazari [facility] 07-08-2023 13:06-0500 Diastolic blood pressure 86 mm[Hg] Barbara Duron [facility] 07-08-2023 13:06-0500 Heart rate 74 /min Barbara Duron [facility] 07-08-2023 13:06-0500 Respiratory rate 16 /min Barbara Duron [facility] 07-08-2023 13:06-0500 SaO2% (BldA) [Mass fraction] 96 % Barbara Duron [facility] 07-08-2023 13:06-0500 Systolic blood pressure 137 mm[Hg] Barbara Duron [facility] 07-08-2023 11:54-0500 Heart rate 84 /min Barbara Duron [facility] 07-08-2023 11:54-0500 SaO2% (BldA) [Mass fraction] 95 % Barbara Duron [facility] 07-08-2023 11:54-0500 Body temperature 96.44 [degF] Barbara Duron [facility] 07-08-2023 11:47-0500 Diastolic blood pressure 86 mm[Hg] Barbara Duron [facility] 07-08-2023 11:47-0500 Mean blood pressure 102 mm[Hg] Barbara Duron [facility] 07-08-2023 11:47-0500 Systolic blood pressure 135 mm[Hg] Barbara Duron [facility] 07-08-2023 11:46-0500 Respiratory rate 15 /min Barbara Duron [facility] 07-02-2023 14:33-0500 Body height 175.26 cm MD Rachel Rayo Work Phone: [facility] 07-02-2023 14:33-0500 Body mass index (BMI) [Ratio] 27.2 kg/m2 MD Rachel Rayo Work Phone: [facility] 07-02-2023 14:33-0500 Body weight 83.68 kg MD Rachel Rayo Work Phone: [facility] 07-02-2023 14:33-0500 Diastolic blood pressure 82 mm[Hg] MD Rachel Rayo Work Phone: [facility] 07-02-2023 14:33-0500 Heart rate 82 /min MD Rachel Rayo Work Phone: [facility] 07-02-2023 14:33-0500 Systolic blood pressure 137 mm[Hg] MD Rachel Rayo Work Phone: [facility] 06-22-2023 15:16-0500 Body height 175.3 cm Jodie Matthews MD Work Phone: [phone] [place] [address] 06-22-2023 15:16-0500 Body mass index (BMI) [Ratio] 26.73 kg/m2 Jodie Matthews MD Work Phone: [facility] 06-22-2023 15:16-0500 Body temperature 97.9 [degF] Jodie Matthews MD Work Phone: [facility] 06-22-2023 15:16-0500 Body weight 82.1 kg Jodie Matthews MD Work Phone: [facility] 06-22-2023 15:16-0500 Diastolic blood pressure 54 mm[Hg] Jodie Matthews MD Work Phone: [phone])[phone] [place] [address] 06-22-2023 15:16-0500 Heart rate 84 /min Jodie Matthews MD Work Phone: [facility] 06-22-2023 15:16-0500 Respiratory rate 20 /min Jodie Matthews MD Work Phone: [facility] 06-22-2023 15:16-0500 Systolic blood pressure 90 mm[Hg] Jodie Matthews MD Work Phone: [facility] 06-22-2023 10:30-0500 Body mass index (BMI) [Ratio] 26.79 kg/m2 Rich Magana MD MPH Work Phone: [facility] 06-22-2023 10:30-0500 Body temperature 96.8 [degF] Rich Magana MD MPH Work Phone: [facility] 06-22-2023 10:30-0500 Body weight 82.28 kg Rich Magana MD MPH Work Phone: [facility] 06-22-2023 10:30-0500 Diastolic blood pressure 66 mm[Hg] Rich Magana MD MPH Work Phone: [facility] 06-22-2023 10:30-0500 Heart rate 83 /min Rich Magana MD MPH Work Phone: [facility] 06-22-2023 10:30-0500 Respiratory rate 18 /min Rich Magana MD MPH Work Phone: [facility] 06-22-2023 10:30-0500 SaO2% (BldA) [Mass fraction] 94 % Rich Magana MD MPH Work Phone: [facility] 06-22-2023 10:30-0500 Systolic blood pressure 104 mm[Hg] Rich Magana MD MPH Work Phone: [facility] 06-02-2023 11:24-0500 Body height 175.26 cm MD Rachel Rayo Work Phone: [facility] 06-02-2023 11:24-0500 Body mass index (BMI) [Ratio] 26.6 kg/m2 MD Rachel Rayo Work Phone: [facility] 06-02-2023 11:24-0500 Body temperature 98 [degF] MD Rachel Rayo Work Phone: [facility] 06-02-2023 11:24-0500 Body weight 81.73 kg MD Rachel Rayo Work Phone: [facility] 06-02-2023 11:24-0500 Diastolic blood pressure 80 mm[Hg] MD Rachel Rayo Work Phone: [facility] 06-02-2023 11:24-0500 Heart rate 86 /min MD Rachel Rayo Work Phone: [facility] 06-02-2023 11:24-0500 Respiratory rate 18 /min MD Rachel Rayo Work Phone: [facility] 06-02-2023 11:24-0500 SaO2% (BldA) [Mass fraction] 94 % MD Rachel Rayo Work Phone: [facility] 06-02-2023 11:24-0500 Systolic blood pressure 125 mm[Hg] MD Rachel Rayo Work Phone: [facility] 04-15-2023 11:37-0500 Body temperature 97.3 [degF] Jodie Matthews MD Work Phone: [facility] 04-15-2023 11:37-0500 Diastolic blood pressure 74 mm[Hg] Jodie Matthews MD Work Phone: [facility] 04-15-2023 11:37-0500 Respiratory rate 16 /min Jodie Matthews MD Work Phone: [facility] 04-15-2023 11:37-0500 Systolic blood pressure 128 mm[Hg] Jodie Matthews MD Work Phone: [facility] 04-08-2023 13:16-0500 Diastolic blood pressure 87 mm[Hg] Barbara Duron [facility] 04-08-2023 13:16-0500 Heart rate 88 /min Barbara Duron [facility] 04-08-2023 13:16-0500 Mean blood pressure 107 mm[Hg] Barbara Duron [facility] 04-08-2023 13:16-0500 Systolic blood pressure 146 mm[Hg] Barbara Duron [facility] 04-08-2023 11:01-0500 Body height 175.3 cm Courtney Brown MD Work Phone: [facility] 04-08-2023 11:01-0500 Body mass index (BMI) [Ratio] 25.99 kg/m2 Courtney Brown MD Work Phone: [facility] 04-08-2023 11:01-0500 Body weight 79.83 kg Courtney Brown MD Work Phone: [facility] 04-08-2023 11:01-0500 Heart rate 91 /min Courtney Brown MD Work Phone: [facility] 04-03-2023 09:15-0500 Body height 175.26 cm Sally Tiwari II Other [facility] [employer] Other 03-24-2023 12:47-0500 Diastolic blood pressure 70 mm[Hg] Jodie Matthews MD Work Phone: [facility] 03-24-2023 12:47-0500 Heart rate 104 /min Jodie Matthews MD Work Phone: [facility] 03-24-2023 12:47-0500 Respiratory rate 16 /min Jodie Matthews MD Work Phone: [facility] 03-24-2023 12:47-0500 Systolic blood pressure 118 mm[Hg] Jodie Matthews MD Work Phone: [facility] 02-18-2023 13:14-0400 Body height 175.26 cm MD Rachel Rayo Work Phone: [facility] 02-18-2023 13:14-0400 Body temperature 97.4 [degF] MD Rachel Rayo Work Phone: [facility] 02-18-2023 13:14-0400 Body weight 86.4 kg MD Rachel Rayo Work Phone: [facility] 02-18-2023 13:14-0400 Diastolic blood pressure 87 mm[Hg] MD Rcahel Rayo Work Phone: [facility] 02-18-2023 13:14-0400 Heart rate 90 /min MD Rachel Rayo Work Phone: [facility] 02-18-2023 13:14-0400 Respiratory rate 20 /min MD Rachel Rayo Work Phone: [facility] 02-18-2023 13:14-0400 SaO2% (BldA) [Mass fraction] 97 % MD Rachel Rayo Work Phone: [facility] 02-18-2023 13:14-0400 Systolic blood pressure 131 mm[Hg] MD Rachel Rayo Work Phone: [facility] 02-11-2023 07:38-0400 Body height 175.[address] 02-11-2023 07:38-0400 Body mass index (BMI) [Ratio] 27.91 kg/m2 [address] 02-11-2023 07:38-0400 Body weight 85.[address] 02-11-2023 07:38-0400 Diastolic blood pressure 78 mm[Hg] [address] 02-11-2023 07:38-0400 Systolic blood pressure 118 mm[Hg] [address] 01-29-2023 14:15-0400 Body height 175.26 cm Rachel Rayo Other [facility] [employer] Other 01-29-2023 14:15-0400 Body mass index (BMI) [Ratio] 27.91 kg/m2 Rachel Ryao Other [employer] Other 01-29-2023 14:15-0400 Body weight 85.73 kg Rachel Rayo Other [employer] Other 01-29-2023 14:15-0400 Diastolic blood pressure 79 mm[Hg] Rachel Rayo Other [facility] [employer] Other 01-29-2023 14:15-0400 Systolic blood pressure 119 mm[Hg] Rachel Rayo Other [facility] [employer] Other 01-27-2023 12:23-0400 Body height 175.26 cm Rachel Rayo Work Phone: EZ-Eugdxyoghy-Weijs r [facility] [address] Work Phone: 01-27-2023 12:23-0400 Body mass index (BMI) [Ratio] 27.93 kg/m2 Rachel Rayo Work Phone: OW-Lfapgazonj-Rndnb r [facility] [address] Work Phone: 01-27-2023 12:23-0400 Body surface area Derived from formula 2.02 m2 Rachel Rayo Work Phone: PD-Bhzzsommwh-Cuizo r [facility] [address] Work Phone: 01-27-2023 12:23-0400 Body temperature 96.9 [degF] Rachel Rayo Work Phone: HM-Uwtcadhhjz-Jqwkr r [facility] [address] Work Phone: 01-27-2023 12:23-0400 Body weight 85.79 kg Rachel Rayo Work Phone: RT-Apibijwdhs-Jtkcr r [facility] [address] Work Phone: 01-27-2023 12:23-0400 Diastolic blood pressure 88 mm[Hg] Rachel Rayo Work Phone: CZ-Noefizjiww-Ckxmj r [facility] [address] Work Phone: 01-27-2023 12:23-0400 Heart rate 88 /min Rachel Rayo Work Phone: JH-Kumtkrklhy-Gggoc [facility] [place] [address] Work Phone: 01-27-2023 12:23-0400 Respiratory rate 18 /min Rachel Rayo Work Phone: DV-Cmydwitzey-Zkyjp r [address] [address] Work Phone: 01-27-2023 12:23-0400 SaO2% (BldA) [Mass fraction] 97 % Rachel Rayo Work Phone: QX-Isanhcrxjq-Xmedu [facility] [place] [address] Work Phone: 01-27-2023 12:23-0400 Systolic blood pressure 135 mm[Hg] Rachel Rayo Work Phone: SJ-Xrnbgadmtm-Fvzgv r [address] [address] Work Phone: 01-20-2023 11:22-0400 Diastolic blood pressure 70 mm[Hg] Rachel Rayo Work Phone: PM-Wzonavlkb-Phahql [address] DO Work Phone: 01-20-2023 11:22-0400 Heart rate 88 /min Rachel Rayo Work Phone: IY-Qefzccabq-Ivikad 170 DO Work Phone: 01-20-2023 11:22-0400 Respiratory rate 16 /min Rachel Rayo Work Phone: KO-Wbzmchusb-Utnzqu [address] DO Work Phone: 01-20-2023 11:22-0400 Systolic blood pressure 116 mm[Hg] Rachel Rayo Work Phone: PV-Nqsntmzpr-Cmmruu 170 DO Work Phone: 2023 11:20-0400 Diastolic blood pressure 78 mm[Hg] Barbara Duron [facility] 2023 11:20-0400 Heart rate 102 /min Barbara Duron [facility] 2023 11:20-0400 Mean blood pressure 91 mm[Hg] Barbara Duron [facility] 2023 11:20-0400 Respiratory rate 16 /min Barbara Duron [facility] 2023 11:20-0400 Systolic blood pressure 117 mm[Hg] Barbara Duron [facility] 12-30-2022 11:24-0400 Body height 175.26 cm Rachel Rayo Work Phone: UP-Nhsjktcpd-Draemr 170 DO Work Phone: 12-30-2022 11:24-0400 Body mass index (BMI) [Ratio] 28.06 kg/m2 Rachel Rayo Work Phone: KZ-Jvfdigadm-Okjsrv 170 DO Work Phone: 12-30-2022 11:24-0400 Body surface area Derived from formula 2.02 m2 Rachel Rayo Work Phone: NA-Rlcvgdncu-Jlwwvj 170 DO Work Phone: 12-30-2022 11:24-0400 Body weight 86.18 kg Rachel Rayo Work Phone: LC-Cbqlcmtxs-Pmmxjr 170 DO Work Phone: 12-30-2022 11:24-0400 Diastolic blood pressure 70 mm[Hg] Rachel Rayo Work Phone: MT-Nzxohetnw-Gqvcjn 170 DO Work Phone: 12-30-2022 11:24-0400 Systolic blood pressure 120 mm[Hg] Rachel Rayo Work Phone: UA-Jfwycxolj-Hoevtc 170 DO Work Phone: 12-24-2022 14:11-0400 Heart rate 69 /min Wei [facility] 12-24-2022 14:11-0400 SaO2% (BldA) [Mass fraction] 97 % Wei [facility] 12-24-2022 14:11-0400 Diastolic blood pressure 86 mm[Hg] Wei [facility] 12-24-2022 14:11-0400 Mean blood pressure 105 mm[Hg] Wei [facility] 12-24-2022 14:11-0400 Systolic blood pressure 144 mm[Hg] Wei [facility] 12-24-2022 14:11-0400 Respiratory rate 16 /min Wei [facility] 12-24-2022 13:57-0400 Diastolic blood pressure 90 mm[Hg] Wei [facility] 12-24-2022 13:57-0400 Heart rate 65 /min Wei [facility] 12-24-2022 13:57-0400 Respiratory rate 16 /min Wei [facility] 12-24-2022 13:57-0400 SaO2% (BldA) [Mass fraction] 99 % Wei [facility] 12-24-2022 13:57-0400 Systolic blood pressure 150 mm[Hg] Wei [facility] 12-24-2022 12:37-0400 Heart rate 74 /min Wei [facility] 12-24-2022 12:37-0400 SaO2% (BldA) [Mass fraction] 96 % Wei [facility] 12-24-2022 12:37-0400 Body temperature 97.52 [degF] Wei [facility] 12-24-2022 12:37-0400 Diastolic blood pressure 91 mm[Hg] Wei [facility] 12-24-2022 12:37-0400 Mean blood pressure 108 mm[Hg] Wei [facility] 12-24-2022 12:37-0400 Systolic blood pressure 144 mm[Hg] Wei [facility] 12-24-2022 12:37-0400 Respiratory rate 12 /min Wei [facility] 11-27-2022 09:48-0400 Diastolic blood pressure 78 mm[Hg] Wei [facility] 11-27-2022 09:48-0400 Heart rate 110 /min Wei [facility] 11-27-2022 09:48-0400 Mean blood pressure 95 mm[Hg] Wei [facility] 11-27-2022 09:48-0400 Respiratory rate 14 /min Wei [facility] 11-27-2022 09:48-0400 Systolic blood pressure 128 mm[Hg] Wei [facility] 11-11-2022 11:05-0400 Body height 175.26 cm Rachel Rayo Work Phone: [facility] [address] [place] Work Phone: 11-11-2022 11:05-0400 Body mass index (BMI) [Ratio] 28.06 kg/m2 Rachel Rayo Work Phone: [facility] [address] [place] Work Phone: 11-11-2022 11:05-0400 Body surface area Derived from formula 2.02 m2 Rahcel Rayo Work Phone: [facility] [address] [place] [...] height 175.26 cm Rachel Rayo Work Phone: XG-Oyccsmqihs-Uttyd ebenezer 2100 DO Work Phone: 11-03-2022 11:11-0400 Body mass index (BMI) [Ratio] 27.91 kg/m2 Rachel Amador Rayo Work Phone: NF-Xratfedqoj-Btetb ebenezer 2100 DO Work Phone: 11-03-2022 11:11-0400 Body surface area Derived from formula 2.02 m2 Racheldario Rayo Work Phone: HO-Fejtdxaowd-Pmxmo ebenezer 2100 DO Work Phone: 11-03-2022 11:11-0400 Body weight 85.73 kg Rachel Amador Rayo Work Phone: LI-Xhuqxoyfej-Pvkzo ebenezer 2100 DO Work Phone: 11-03-2022 11:11-0400 Diastolic blood pressure 89 mm[Hg] Rachel Rayo Work Phone: XQ-Arpjnxzxvd-Cvkmw ebenezer 2100 DO Work Phone: 11-03-2022 11:11-0400 Systolic blood pressure 156 mm[Hg] Rachel Amador Rayo Work Phone: BN-Kdnzonmqqx-Msuod ebenezer 2100 DO Work Phone: 10-29-2022 14:21-0400 Heart rate 72 /min Wei [facility] 10-29-2022 14:21-0400 SaO2% (BldA) [Mass fraction] 90 % Wei [facility] 10-29-2022 14:21-0400 Diastolic blood pressure 86 mm[Hg] Wei [facility] 10-29-2022 14:21-0400 Mean blood pressure 103 mm[Hg] Wei [facility] 10-29-2022 14:21-0400 Systolic blood pressure 138 mm[Hg] Wei [facility] 10-29-2022 14:21-0400 Respiratory rate 16 /min Wei [facility] 10-29-2022 14:12-0400 Diastolic blood pressure 94 mm[Hg] Wei [facility] 10-29-2022 14:12-0400 Heart rate 77 /min Wei [facility] 10-29-2022 14:12-0400 Respiratory rate 14 /min Wei [facility] 10-29-2022 14:12-0400 SaO2% (BldA) [Mass fraction] 97 % Wei [facility] 10-29-2022 14:12-0400 Systolic blood pressure 141 mm[Hg] Wei [facility] 10-29-2022 13:37-0400 Heart rate 82 /min Wei [facility] 10-29-2022 13:37-0400 SaO2% (BldA) [Mass fraction] 96 % Wei [facility] 10-29-2022 13:37-0400 Diastolic blood pressure 81 mm[Hg] Wei [facility] 10-29-2022 13:37-0400 Mean blood pressure 96 mm[Hg] Wei [facility] 10-29-2022 13:37-0400 Systolic blood pressure 125 mm[Hg] Wie [facility] 10-29-2022 13:37-0400 Body temperature 97.88 [degF] Wei [facility] 10-29-2022 13:36-0400 Respiratory rate 14 /min Wei [facility]man[facility] 10-20-2022 11:32-0400 Diastolic blood pressure 74 mm[Hg] Rachel Rayo Work Phone: PA-Estkjhroe-Qtezpi 170 DO Work Phone: 10-20-2022 11:32-0400 Heart rate 92 /min Rachel Rayo Work Phone: QI-Rmereopdn-Izneyt 170 DO Work Phone: 10-20-2022 11:32-0400 Respiratory rate 16 /min Rachel Rayo Work Phone: UB-Xaknqquck-Wpcpqt 170 DO Work Phone: 10-20-2022 11:32-0400 Systolic blood pressure 116 mm[Hg] Rachel Rayo Work Phone: EA-Pidgzrafh-Gyjzxv 170 DO Work Phone: 09-09-2022 12:25-0400 Body height 175.26 cm Rachel Rayo Work Phone: JX-Banoojxaxj-Jdyoi a Work Phone: 09-09-2022 12:25-0400 Body mass index (BMI) [Ratio] 28.21 kg/m2 Rachel Rayo Work Phone: QK-Axzimrskov-Tkvdn a Work Phone: 09-09-2022 12:25-0400 Body surface area Derived from formula 2.03 m2 Rachel Rayo Work Phone: QC-Zohhurdnot-Endsx a Work Phone: 09-09-2022 12:25-0400 Body weight 86.64 kg Rachel Rayo Work Phone: IM-Teqrtlfpcz-Kftgg a Work Phone: 09-09-2022 12:25-0400 Diastolic blood pressure 90 mm[Hg] Rachel Rayo Work Phone: PE-Qtzgbdaroo-Bnrlt a Work Phone: 09-09-2022 12:25-0400 Systolic blood pressure 140 mm[Hg] Rachel Rayo Work Phone: AN-Kgbjfzfkhx-Ptqmr a Work Phone: 09-08-2022 10:06-0400 Body height [...] height 175.26 cm Rachel Rayo Work Phone: [facility] [address] [place] Work Phone: 08-29-2022 08:19-0400 Body mass index (BMI) [Ratio] 27.76 kg/m2 Rachel Rayo Work Phone: [facility] [address] [place] Work Phone: 08-29-2022 08:19-0400 Body surface area Derived from formula 2.01 m2 Rachel Rayo Work Phone: [facility] [address] [place] Work Phone: 08-29-2022 08:19-0400 Body temperature 96 [degF] Rachel Rayo Work Phone: [facility] [address] [place] Work Phone: 08-29-2022 08:19-0400 Body weight 85.28 kg Rachel Rayo Work Phone: [facility] [address] [place] Work Phone: 08-29-2022 08:19-0400 Diastolic blood pressure 76 mm[Hg] Rachel Rayo Work Phone: [facility] [address] [place] Work Phone: 08-29-2022 08:19-0400 Heart rate 96 /min Rachel Rayo Work Phone: [facility] [address] [place] Work Phone: 08-29-2022 08:19-0400 SaO2% (BldA) [Mass fraction] 96 % Rachel Rayo Work Phone: [facility] [address] [place] Work Phone: 08-29-2022 08:19-0400 Systolic blood pressure 118 mm[Hg] Rachel Rayo Work Phone: [facility] [address] [place] Work Phone: 08-25-2022 12:30-0400 Body height 175.26 cm Rachel Rayo Other [employer] Other 08-25-2022 12:30-0400 Body mass index (BMI) [Ratio] 27.64 kg/m2 Rachel Rayo Other [employer] Other 08-25-2022 12:30-0400 Body weight 84.91 kg Rachel Rayo Other [employer] Other 08-25-2022 12:30-0400 Diastolic blood pressure 72 mm[Hg] Rachel Rayo Other [employer] Other 08-25-2022 12:30-0400 SaO2% (BldA) [Mass fraction] 97 % Rachel Rayo Other [employer] Other 08-25-2022 12:30-0400 Systolic blood pressure 110 mm[Hg] Rachel Rayo Other [employer] Other 08-07-2022 09:45-0400 Diastolic blood pressure 81 mm[Hg] Wei [facility] 08-07-2022 09:45-0400 Heart rate 82 /min Wei [facility] 08-07-2022 09:45-0400 Mean blood pressure 96 mm[Hg] Wei [facility] 08-07-2022 09:45-0400 Respiratory rate 18 /min Wei [facility] 04-06-2023 09:45-0400 Systolic blood pressure 127 mm[Hg] Wei [facility] 07-18-2022 09:00-0400 Body height 175.26 cm Jodie Blades Other [employer] Other 07-18-2022 09:00-0400 Body mass index (BMI) [Ratio] 28.5 kg/m2 Jodie Blades Other [employer] Other 07-18-2022 09:00-0400 Body weight 87.54 kg Jodie Blades Other [employer] Other 07-18-2022 09:00-0400 Diastolic blood pressure 100 mm[Hg] Jodie Blades Other [employer] Other 07-18-2022 09:00-0400 Systolic blood pressure 146 mm[Hg] Jodie Blades Other [employer] Other 07-16-2022 13:01-0400 Body temperature 97.5 [degF] Rachel Rayo Work Phone: TS-Gvnpadrlrq-Uytnu a Work Phone: 07-16-2022 13:01-0400 Diastolic blood pressure 86 mm[Hg] Rachel Rayo Work Phone: UR-Qytvbkpjxs-Ibten a Work Phone: 07-16-2022 13:01-0400 Heart rate 88 /min Rachel Rayo Work Phone: ZX-Dqoxkcyyub-Ljdol a Work Phone: 07-16-2022 13:01-0400 Respiratory rate 16 /min Rachel Rayo Work Phone: DR-Ulvdahmfav-Rlceh a Work Phone: 07-16-2022 13:01-0400 Systolic blood pressure 146 mm[Hg] Rachel Rayo Work Phone: BR-Opwkqborsk-Zxuvh a Work Phone: 07-14-2022 07:03-0400 Body height 175.26 cm MD Rachel Rayo Work Phone: [facility] 07-14-2022 07:03-0400 Body weight 83 kg MD Rachel Rayo Work Phone: [facility] 07-09-2022 10:07-0500 Body height 175.26 cm Rachel Rayo Work Phone: MG-Fqiehcsfzz-Piuly a Work Phone: 07-09-2022 10:07-0500 Body mass index (BMI) [Ratio] 28.65 kg/m2 Rachel Rayo Work Phone: ZN-Wkcetahitm-Ztjwq a Work Phone: 07-09-2022 10:07-0500 Body surface area Derived from formula 2.04 m2 Rachel Rayo Work Phone: DR-Wcggjxlfks-Xjdkx a Work Phone: 07-09-2022 10:07-0500 Body temperature 97.9 [degF] Rachel Rayo Work Phone: BL-Kbmfurwubn-Ytroy a Work Phone: 07-09-2022 10:07-0500 Body weight 88 kg Rachel Rayo Work Phone: DU-Anxbfnmkuy-Gswna a Work Phone: 07-09-2022 10:07-0500 Diastolic blood pressure 86 mm[Hg] Rachel Rayo Work Phone: KI-Lrkyshxaaf-Yqmuh a Work Phone: 07-09-2022 10:07-0500 Heart rate 90 /min Rachel Rayo Work Phone: OV-Exnxntlkct-Ftiej a Work Phone: 07-09-2022 10:07-0500 Respiratory rate 18 /min Rachel Rayo Work Phone: BE-Swkgqudorq-Jwhjq a Work Phone: 07-09-2022 10:07-0500 SaO2% (BldA) [Mass fraction] 93 % Rachel Rayo Work Phone: TV-Uetflgfkby-Hdujx a Work Phone: 07-09-2022 10:07-0500 Systolic blood pressure 126 mm[Hg] Rachel Rayo Work Phone: MG-Svgxufcosk-Vsqky a Work Phone: 06-16-2022 11:12-0500 Body mass index (BMI) [Ratio] 28.5 kg/m2 Rachel Rayo Work Phone: HI-Xphuxsuovm-Vheti ebenezer 2100 DO Work Phone: 06-16-2022 11:12-0500 Body surface area Derived from formula 2.03 m2 Rachel Rayo Work Phone: UT-Wapqpmrnnd-Bxbtb ebenezer 2100 DO Work Phone: 06-16-2022 11:12-0500 Body weight 87.54 kg Rachel Rayo Work Phone: XD-Mfbvfxgagw-Pojsr ebenezer 2100 DO Work Phone: 06-16-2022 11:12-0500 Diastolic blood pressure 84 mm[Hg] Rachel Rayo Work Phone: MU-Acjntsenzz-Flmsq ebenezer 2100 DO Work Phone: 06-16-2022 11:12-0500 Heart rate 84 /min Rachel Rayo Work Phone: UF-Qfrcjwukma-Zurqh ebenezer 2100 DO Work Phone: 06-16-2022 11:12-0500 SaO2% (BldA) [Mass fraction] 95 % Rachel Rayo Work Phone: YM-Rpsttmxxze-Dfrtw ebenezer 2100 DO Work Phone: 06-16-2022 11:12-0500 Systolic blood pressure 150 mm[Hg] Rachel Rayo Work Phone: IU-Qwovmfxsxu-Cuvbl ake 2100 DO Work Phone: 06-03-2022 15:00-0500 Body height 175.26 cm Rachel Rayo Other [facility] Other 06-03-2022 15:00-0500 Body mass index (BMI) [Ratio] 28.65 kg/m2 Rachel Rayo Other [employer] Other 06-03-2022 15:00-0500 Body weight 88 kg Rachel Rayo Other [employer] Other 06-03-2022 15:00-0500 Diastolic blood pressure 80 mm[Hg] Rachel Rayo Other [employer] Other 06-03-2022 15:00-0500 Systolic blood pressure 130 mm[Hg] Rachel Rayo Other [employer] Other 06-02-2022 15:26-0500 Body height 175.26 cm Rachel Rayo Work Phone: [facility] [address] [place] Work Phone: 06-02-2022 15:26-0500 Body mass index (BMI) [Ratio] 28.65 kg/m2 Rachel Rayo Work Phone: [facility] [address] [place] Work Phone: 06-02-2022 15:26-0500 Body surface area Derived from formula 2.04 m2 Rachel Ray[facility] [address] [place] Work Phone: 06-02-2022 15:26-0500 Body temperature 97.8 [degF] Rachel Rayo Work Phone: [facility] [address] [place] Work Phone: 06-02-2022 15:26-0500 Body weight 88 kg Rachel Rayo Work Phone: [facility] [address] [place] Work Phone: 06-02-2022 15:26-0500 Diastolic blood pressure 95 mm[Hg] Rachel Rayo Work Phone: [facility] [address] [place] Work Phone: 06-02-2022 15:26-0500 Heart rate 88 /min Rachel Rayo Work Phone: [facility] [address] [place] Work Phone: 06-02-2022 15:26-0500 Systolic blood pressure 144 mm[Hg] Rachel Rayo Work Phone: [facility] [address] [place] Work Phone: 06-02-2022 10:33-0500 Body height 175.26 cm Rachel Rayo Work Phone: [facility] [address] [place] Work Phone: 06-02-2022 10:33-0500 Body mass index (BMI) [Ratio] 28.65 kg/m2 Rachel Rayo Work Phone: [facility] [address] [place] Work Phone: 06-02-2022 10:33-0500 Body surface area Derived from formula 2.04 m2 Rachel Rayo Work Phone: [facility] [address] [place] Work Phone: 06-02-2022 10:33-0500 Body temperature 96.8 [degF] Rachel Rayo Work Phone: [facility] [address] [place] Work Phone: 06-02-2022 10:33-0500 Body weight 88 kg Rachel Rayo Work Phone: [facility] [address] [place] Work Phone: 06-02-2022 10:33-0500 Diastolic blood pressure 72 mm[Hg] Rachel Rayo Work Phone: [facility] [address] [place] Work Phone: 06-02-2022 10:33-0500 Heart rate 90 /min Rachel Rayo Work Phone: [facility] [address] [place] Work Phone: 06-02-2022 10:33-0500 SaO2% (BldA) [Mass fraction] 95 % Rachel Rayo Work Phone: [facility] [address] [place] Work Phone: 06-02-2022 10:33-0500 Systolic blood pressure 128 mm[Hg] Rachel Rayo [facility] [place] Work Phone: 05-19-2022 09:09-0500 Blood Pressure Location Elizabeth CHAUDHRY [facility] 05-19-2022 09:09-0500 Diastolic blood pressure 86 mm[Hg] Elizabeth CHAUDHRY [facility] 05-19-2022 09:09-0500 Heart rate 84 /min Elizabeth CHAUDHRY [facility] 05-19-2022 09:09-0500 Respiratory rate 16 /min Elizabeth CHAUDHRY [facility] 05-19-2022 09:09-0500 Systolic blood pressure 132 mm[Hg] [facility] 05-16-2022 11:13-0500 Body weight 90.2 kg MD Rachel Rayo Work Phone: [facility] 05-16-2022 11:13-0500 Diastolic blood pressure 94 mm[Hg] MD Rachel Rayo Work Phone: [facility] 05-16-2022 11:13-0500 Heart rate 64 /min MD Rachel Rayo Work Phone: [facility] 05-16-2022 11:13-0500 Respiratory rate 18 /min MD Rachel Rayo Work Phone: [facility] 05-16-2022 11:13-0500 SaO2% (BldA) [Mass fraction] 99 % MD Rachel Rayo Work Phone: [facility] 05-16-2022 11:13-0500 Systolic blood pressure 154 mm[Hg] MD Rachel Rayo Work Phone: [facility] 04-16-2022 14:35-0500 Body height 175.26 cm Rachel Rayo Work Phone: WZ-Lmidigtlm-Fnptn 204 Work Phone: 04-16-2022 14:35-0500 Body temperature 97.4 [degF] Rachel Rayo Work Phone: QV-Gqvwoepuk-Uftnn 204 Work Phone: 04-16-2022 14:35-0500 Diastolic blood pressure 90 mm[Hg] Rachel Rayo Work Phone: DP-Qozchhzvy-Llakq 204 Work Phone: 04-16-2022 14:35-0500 Heart rate 80 /min Rachel Rayo Work Phone: PO-Ajqwaitcx-Radeg 204 Work Phone: 04-16-2022 14:35-0500 Systolic blood pressure 136 mm[Hg] Rachel Rayo Work Phone: QK-Jmrambhol-Hhlgs 204 Work Phone: 04-16-2022 10:54-0500 Body height 175.26 cm MD Rachel Rayo Work Phone: [facility] 04-16-2022 10:54-0500 Body temperature 97.7 [degF] MD Rachel Rayo Work Phone: [facility] 04-16-2022 10:54-0500 Body weight 84.82 kg MD Rachel Rayo Work Phone: [facility] 04-16-2022 10:54-0500 Diastolic blood pressure 80 mm[Hg] MD Rachel Rayo Work Phone: [facility] 04-16-2022 10:54-0500 Heart rate 83 /min MD Rachel Rayo Work Phone: [facility] 04-16-2022 10:54-0500 Respiratory rate 18 /min MD Rachel Rayo Work Phone: [facility] 04-16-2022 10:54-0500 SaO2% (BldA) [Mass fraction] 96 % MD Rachel Rayo Work Phone: [facility] 04-16-2022 10:54-0500 Systolic blood pressure 137 mm[Hg] MD Rachel Raoy Work Phone: [facility] 04-15-2022 11:39-0500 Body height 175.26 cm Rachel [...] 89 mm[Hg] MD Rachel Rayo Work Phone: [facility] 04-11-2022 16:11-0500 Heart rate 86 /min MD Rachel Rayo Work Phone: [facility] 04-11-2022 16:11-0500 Respiratory rate 16 /min MD Rachel Rayo Work Phone: [facility] 04-11-2022 16:11-0500 Systolic blood pressure 144 mm[Hg] MD Rachel Rayo Work Phone: [facility] 04-11-2022 14:22-0500 Body temperature 98 [degF] MD Rachel Rayo Work Phone: [facility] 04-11-2022 14:22-0500 SaO2% (BldA) [Mass fraction] 95 % MD Rachel Rayo Work Phone: [facility] 04-10-2022 15:45-0500 Body height 175.26 cm [employer] Other [employer] Other 04-10-2022 15:45-0500 Body mass index (BMI) [Ratio] 28.06 kg/m2 [employer] Other [employer] Other 04-10-2022 15:45-0500 Body weight 86.18 kg [employer] Other [employer] Other 04-05-2022 23:33-0500 Diastolic blood pressure 90 mm[Hg] MD Rachel Rayo Work Phone: [facility] 04-05-2022 23:33-0500 Heart rate 76 /min MD Rachel Rayo Work Phone: [facility] 04-05-2022 23:33-0500 Respiratory rate 19 /min MD Rachel Rayo Work Phone: [facility] 04-05-2022 23:33-0500 SaO2% (BldA) [Mass fraction] 97 % MD Rachel Rayo Work Phone: [facility] 04-05-2022 23:33-0500 Systolic blood pressure 137 mm[Hg] MD Rachel Rayo Work Phone: [facility] 04-05-2022 19:52-0500 Body height 175.26 cm MD Rachel Rayo Work Phone: [facility] 04-05-2022 19:52-0500 Body weight 83.91 kg MD Rachel Rayo Work Phone: [facility] 04-03-2022 16:25-0500 Diastolic blood pressure 74 mm[Hg] MD Rachel Rayo Work Phone: [facility] 04-03-2022 16:25-0500 Heart rate 68 /min MD Rachel Rayo Work Phone: [facility] 04-03-2022 16:25-0500 Respiratory rate 16 /min MD Rachel Rayo Work Phone: [facility] 04-03-2022 16:25-0500 Systolic blood pressure 128 mm[Hg] MD Rachel Rayo Work Phone: [facility] 04-03-2022 14:26-0500 Body temperature 98 [degF] MD Rachel Rayo Work Phone: [facility] 04-03-2022 14:26-0500 SaO2% (BldA) [Mass fraction] 97 % MD Rachel Rayo Work Phone: [facility] 03-18-2022 14:32-0500 Body temperature 97.9 [degF] MD Rachel Rayo Work Phone: [facility] 03-18-2022 14:32-0500 Body weight 86.6 kg MD Rachel Rayo Work Phone: [facility] 03-18-2022 14:32-0500 Diastolic blood pressure 73 mm[Hg] MD Rachel Rayo Work Phone: [facility] 03-18-2022 14:32-0500 Heart rate 105 /min MD Rachel Rayo Work Phone: [facility] 03-18-2022 14:32-0500 Respiratory rate 16 /min MD Rachel Rayo Work Phone: [facility] 03-18-2022 14:32-0500 SaO2% (BldA) [Mass fraction] 93 % MD Rachel Rayo Work Phone: [facility] 03-18-2022 14:32-0500 Systolic blood pressure 105 mm[Hg] MD Rachel Rayo Work Phone: [facility] 02-26-2022 10:35-0400 Body temperature 97.1 [degF] Rachel Rayo Work Phone: RU-Vgeyhthgq-Kcmqlh 170 DO Work Phone: 02-26-2022 10:35-0400 Diastolic blood pressure 80 mm[Hg] Rachel Rayo Work Phone: HB-Adbdkpzgk-Hvkfam 170 DO Work Phone: 02-26-2022 10:35-0400 Heart rate 88 /min Rachel Rayo Work Phone: AE-Rqwegrwaf-Plyzks 170 DO Work Phone: 02-26-2022 10:35-0400 Respiratory rate 16 /min Rachel Rayo Work Phone: ZZ-Oduxtxllg-Dmijnn 170 DO Work Phone: 02-26-2022 10:35-0400 Systolic blood pressure 140 mm[Hg] Rachel Rayo Work Phone: JZ-Tewuwymzr-Mkkdim 170 DO Work Phone: 02-24-2022 11:25-0400 Diastolic blood pressure 88 mm[Hg] Rachel Rayo Work Phone: JN-Mdzfdbatrt-Gizlu ebenezer 2100 DO Work Phone: 02-24-2022 11:25-0400 Heart rate 98 /min Rachel Rayo Work Phone: WQ-Znbtcvzdci-Auopv ebenezer 9308 DO Work Phone: 02-24-2022 11:25-0400 SaO2% (BldA) [Mass fraction] 98 % Rachel Rayo Work Phone: UZ-Xrkfrjuekp-Brqkr ebenezer 2100 DO Work Phone: 02-24-2022 11:25-0400 Systolic blood pressure 148 mm[Hg] Rachel Rayo Work Phone: EP-Pyqbxvaqor-Ermdb ebenezer 2100 DO Work Phone: 02-12-2022 10:22-0400 [...] Phone: 01-23-2022 11:30-0400 Body height 175.26 cm [employer] Other [employer] Other 01-23-2022 11:30-0400 Body mass index (BMI) [Ratio] 28.06 kg/m2 [employer] Other [employer] Other 01-23-2022 11:30-0400 Body weight 86.18 kg [employer] Other [employer] Other 01-15-2022 14:08-0400 Body temperature 97.4 [degF] Rachel Rayo Work Phone: AV-Ngnimtivz-Uzrxzv 170 DO Work Phone: 01-15-2022 14:08-0400 Diastolic blood pressure 78 mm[Hg] Rachel Rayo Work Phone: BT-Gyazeaxhx-Jlstom 170 DO Work Phone: 01-15-2022 14:08-0400 Heart rate 88 /min Rachel Rayo Work Phone: OQ-Agqldbqqq-Iemwys 170 DO Work Phone: 01-15-2022 14:08-0400 Respiratory rate 16 /min Rachel Rayo Work Phone: JB-Rlfuvghqb-Arkcer 170 DO Work Phone: 01-15-2022 14:08-0400 Systolic blood pressure 126 mm[Hg] Rachel Rayo Work Phone: YC-Adsfquohs-Bqzqrc 170 DO Work Phone: 01-14-2022 10:24-0400 Body temperature 98 [degF] MD Rachel Rayo Work Phone: [facility] 01-14-2022 10:24-0400 Body weight 88.49 kg MD Rachel Rayo Work Phone: [facility] 01-14-2022 10:24-0400 Diastolic blood pressure 79 mm[Hg] MD Rachel Rayo Work Phone: [facility] 01-14-2022 10:24-0400 Heart rate 64 /min MD Rachel Rayo Work Phone: [facility] 01-14-2022 10:24-0400 Respiratory rate 20 /min MD Rachel Rayo Work Phone: [facility] 01-14-2022 10:24-0400 SaO2% (BldA) [Mass fraction] 96 % MD Rachel Rayo Work Phone: [facility] 01-14-2022 10:24-0400 Systolic blood pressure 114 mm[Hg] MD Rachel Rayo Work Phone: [facility] 01-14-2022 09:59-0400 Body height 175.26 cm MD Rachel Rayo Work Phone: [facility] 12-16-2021 10:11-0400 Body height 175.26 cm Rachel [...] pressure 67 mm[Hg] Rachel Rayo Work Phone: XQ-Buqbdyleet-Teyai ebenezer 2100 DO Work Phone: 11-29-2021 09:57-0400 Heart rate 94 /min Rachel Rayo Work Phone: LI-Xnwdgqtqem-Yoecl ebenezer 2100 DO Work Phone: 11-29-2021 09:57-0400 SaO2% (BldA) [Mass fraction] 98 % Rachel Rayo Work Phone: ZO-Frjjqnwepf-Bhlof ebenezer 2100 DO Work Phone: 11-29-2021 09:57-0400 Systolic blood pressure 102 mm[Hg] Rachel Rayo Work Phone: VA-Nojvczfmxo-Rmsuy ebenezer 2100 DO Work Phone: 11-06-2021 13:46-0400 Body height 175.26 cm Rachel Rayo Work Phone: QE-Dkxiczobx-Dadwjn 170 DO Work Phone: 11-06-2021 13:46-0400 Body temperature 97.6 [degF] Rachel Rayo Work Phone: CI-Jsxzlbvxo-Kjkprc 170 DO Work Phone: 11-06-2021 13:46-0400 Diastolic blood pressure 64 mm[Hg] Rachel Rayo Work Phone: BJ-Rxvlzgvxi-Pcavhj 170 DO Work Phone: 11-06-2021 13:46-0400 Respiratory rate 16 /min Rachel Rayo Work Phone: RO-Ljmqwruwb-Kjjcqd [address] DO Work Phone: 11-06-2021 13:46-0400 Systolic blood pressure 102 mm[Hg] Rachel Rayo Work Phone: MD-Pmkvmgnmz-Ulltwq 170 DO Work Phone: 09-16-2021 14:45-0400 Body [...] 09-16-2021 09:12-0400 Heart rate 85 /min Rachel Ryao Work Phone: [facility] [address] [place] Work [...] temperature 97.1 [degF] Rachel Rayo Work Phone: PW-Pctfckdri-Amhehe 170 DO Work Phone: 08-21-2021 16:33-0400 Diastolic blood pressure 70 mm[Hg] Rachel Rayo Work Phone: VK-Oshmwpmbs-Qkxgsz 170 DO Work Phone: 08-21-2021 16:33-0400 Heart rate 92 /min Rachel Rayo Work Phone: XM-Twesuviyy-Cuylws 170 DO Work Phone: 08-21-2021 16:33-0400 Respiratory rate 16 /min Rachel Rayo Work Phone: JT-Fxqudympr-Eaqgps 170 DO Work Phone: 08-21-2021 16:33-0400 Systolic blood pressure 112 mm[Hg] Rachel Rayo Work Phone: ZT-Oltwdgdjy-Btzbuu 170 DO Work Phone: 08-13-2021 11:51-0400 Body height 175.26 cm Rachel Rayo Work Phone: MW-Lqkwjdrwwx-Dkryg ebenezer 2100 DO Work Phone: 08-13-2021 11:51-0400 Body mass index (BMI) [Ratio] 27.91 kg/m2 Rachel Rayo Work Phone: TT-Qjdbguliwv-Erjhs ebenezer 2100 DO Work Phone: 08-13-2021 11:51-0400 Body surface area Derived from formula 2.02 m2 Rachel Rayo Work Phone: NS-Bvhorktrob-Vzvam ebenezer 2100 DO Work Phone: 08-13-2021 11:51-0400 Body weight 85.73 kg Rachel Rayo Work Phone: IY-Wzrqstflya-Iydcn ebenezer 2100 DO Work Phone: 08-13-2021 11:51-0400 Diastolic blood pressure 78 mm[Hg] Rachel Rayo Work Phone: YQ-Kdkocyregz-Fqeoj ebenezer 2100 DO Work Phone: 08-13-2021 11:51-0400 Systolic blood pressure 101 mm[Hg] Rachel Rayo Work Phone: KH-Fubztjildf-Inozp ebenezer 2100 DO Work Phone: 07-30-2021 12:35-0400 Heart rate 88 /min MD Rachel Rayo Work Phone: [facility] 07-30-2021 12:35-0400 Respiratory rate 20 /min MD Rachel Rayo Work Phone: [facility] 07-30-2021 11:58-0400 Body temperature 97.3 [degF] MD Rachel Rayo Work Phone: [facility] 07-30-2021 11:58-0400 Diastolic blood pressure 73 mm[Hg] MD Rachel Rayo Work Phone: [facility] 07-30-2021 11:58-0400 Inhaled oxygen flow rate 2 L/min MD Rachel Rayo Work Phone: [facility] 07-30-2021 11:58-0400 SaO2% (BldA) [Mass fraction] 98 % MD Rachel Rayo Work Phone: [facility] 07-30-2021 11:58-0400 Systolic blood pressure 113 mm[Hg] MD Rachel Rayo Work Phone: [facility] 07-30-2021 05:22-0400 Body weight 84.2 kg MD Rachel Rayo Work Phone: [facility] 07-29-2021 16:04-0400 65 1 Rachel Rayo Work Phone: -[facility]-Elsy 250 DO Work Phone: Comment on above: [id number] 07-29-2021 09:40-0400 Body height 175.26 cm MD Rachel Rayo Work Phone: [facility] 07-29-2021 09:40-0400 Body mass index (BMI) [Ratio] 27.1 kg/m2 MD Rachel Rayo Work Phone: [facility] 06-19-2021 12:59-0500 Body temperature 96 [degF] Rachel Rayo Work Phone: FW-Nmfquiktwk-Xgvjs a Work Phone: 06-19-2021 12:59-0500 Diastolic blood pressure 56 mm[Hg] Rachel Rayo Work Phone: VD-Ixxfdnpztb-Pfevc a Work Phone: 06-19-2021 12:59-0500 Heart rate 96 /min Rachel Rayo Work Phone: NE-Gcagjgucgp-Yfjab a Work Phone: 06-19-2021 12:59-0500 Respiratory rate 16 /min Rachel Rayo Work Phone: CG-Xndlmxkroz-Yfzls a Work Phone: 06-19-2021 12:59-0500 Systolic blood pressure 100 mm[Hg] Rachel Rayo Work Phone: BD-Kdykxmzfkb-Jpoum a Work Phone: 06-18-2021 11:04-0500 Body height 175.26 cm Rachel Rayo Work Phone: BK-Wzvshejnzg-Xcvbh ebenezer 2100 DO Work Phone: 06-18-2021 11:04-0500 Body mass index (BMI) [Ratio] 28.8 kg/m2 Rachel Rayo Work Phone: KQ-Qfkcuhrgsb-Lhuok ebenezer 2100 DO Work Phone: 06-18-2021 11:04-0500 Body surface area Derived from formula 2.04 m2 Rachel Rayo Work Phone: XI-Gfteiqzekb-Hlrig ebenezer 2100 DO Work Phone: 06-18-2021 11:04-0500 Body weight 88.45 kg Rachel Rayo Work Phone: XW-Wcmkpeiuum-Egmrd ebenezer 2100 DO Work Phone: 06-18-2021 11:04-0500 Diastolic blood pressure 67 mm[Hg] Rachel Rayo Work Phone: MN-Zhzakypiva-Racxo ebenezer 2100 DO Work Phone: 06-18-2021 11:04-0500 Systolic blood pressure 107 mm[Hg] Rachel Rayo Work Phone: ZF-Hyigzealdo-Orzjw ebenezer 2100 DO Work Phone: 06-12-2021 11:39-0500 Body height 175.26 cm Rachel Rayo Work Phone: CD-Zehwlnszio-Eofgh ebenezer 2100 DO Work Phone: 06-12-2021 11:39-0500 Body mass index (BMI) [Ratio] 28.8 kg/m2 Rachel Rayo Work Phone: SE-Mvdoupqpgq-Omigz ebenezer 2100 DO Work Phone: 06-12-2021 11:39-0500 Body surface area Derived from formula 2.04 m2 Rachel Rayo Work Phone: PW-Ddxvvttizr-Cjapc ebenezer 2100 DO Work Phone: 06-12-2021 11:39-0500 Body temperature 97.9 [degF] Rachel Rayo Work Phone: FX-Tdplgpjmue-Kyydn ebenezer 2100 DO Work Phone: 06-12-2021 11:39-0500 Body weight 88.45 kg Rachel Rayo Work Phone: FB-Eeqdvjjwin-Vaylt ebenezer 2100 DO Work Phone: 06-12-2021 11:39-0500 Diastolic blood pressure 85 mm[Hg] Rachel Rayo Work Phone: HT-Pujgwpazuc-Uyodk ebenezer 2100 DO Work Phone: 06-12-2021 11:39-0500 Heart rate 93 /min Rachel Rayo Work Phone: YB-Dtfqxrxrbb-Oxnvj ebenezer 2100 DO Work Phone: 06-12-2021 11:39-0500 Respiratory rate 18 /min Rachel Rayo Work Phone: CK-Qqphswfcsy-Xsmhh ebenezer 2100 DO Work Phone: 06-12-2021 11:39-0500 SaO2% (BldA) [Mass fraction] 90 % Rachel Rayo Work Phone: OJ-Gyhotlyxhm-Sqmds ebenezer 2100 DO Work Phone: 06-12-2021 11:39-0500 Systolic blood pressure 131 mm[Hg] Rachel Rayo Work Phone: GK-Plvnfonjdh-Wvnzt ebenezer 2100 DO Work Phone: 06-03-2021 09:33-0500 Body temperature 96.7 [degF] Rachel Rayo Work Phone: [facility] [address] [place] Work Phone: 06-03-2021 09:33-0500 Diastolic blood pressure 76 mm[Hg] Rachel Rayo Work Phone: [facility] [address] [place] Work Phone: 06-03-2021 09:33-0500 Heart rate 101 /min Rachel Rayo Work Phone: [facility] [address] [place] Work Phone: 06-03-2021 09:33-0500 SaO2% (BldA) [Mass fraction] 97 % Rachel Rayo Work Phone: [facility] [address] [place] Work Phone: 06-03-2021 09:33-0500 Systolic blood pressure 120 mm[Hg] Rachel Rayo Work Phone: [facility] 130 [place] Work Phone: 05-16-2021 09:39-0500 Body height 175.26 cm Rachel Rayo Work Phone: FZ-Yrfflakio-Zbkpx 204 Work Phone: 05-16-2021 09:39-0500 Body mass index (BMI) [Ratio] 28.56 kg/m2 Rachel Rayo Work Phone: JY-Brclntwpc-Txbnm 204 Work Phone: 05-16-2021 09:39-0500 Body surface area Derived from formula 2.04 m2 Rachel Rayo Work Phone: YD-Cdqvceejq-Varfc 204 Work Phone: 05-16-2021 09:39-0500 Body temperature 97.3 [degF] Rachel Rayo Work Phone: VH-Vbtyoiino-Tqgpz 204 Work Phone: 05-16-2021 09:39-0500 Body weight 87.72 kg Rachel Rayo Work Phone: WE-Weykfifkk-Jzsej 204 Work Phone: 05-16-2021 09:39-0500 Diastolic blood pressure 78 mm[Hg] Rachel Rayo Work Phone: MG-Uinvxgzib-Ofxbh 204 Work Phone: 05-16-2021 09:39-0500 Heart rate 70 /min Rachel Rayo Work Phone: TO-Uqropbyrt-Wjwjs 204 Work Phone: 05-16-2021 09:39-0500 Respiratory rate 16 /min Rachel Rayo Work Phone: VG-Sipdzgmdt-Bxetz 204 Work Phone: 05-16-2021 09:39-0500 SaO2% (BldA) [Mass fraction] 95 % Rachel Rayo Work Phone: VF-Tfonynmxg-Tooek 204 Work Phone: 05-16-2021 09:39-0500 Systolic blood pressure 122 mm[Hg] Rachel Rayo Work Phone: LY-Fororkszk-Trrbi 204 Work Phone: 05-15-2021 11:16-0500 Body temperature 96.6 [degF] Rachel Rayo Work Phone: CY-Clhfofgtg-Knjfaj l 3300A Work Phone: 05-15-2021 11:16-0500 Diastolic blood pressure 70 mm[Hg] Rachel Rayo Work Phone: IL-Svzfegmnk-Nqswgu l 3300A Work Phone: 05-15-2021 11:16-0500 Heart rate 104 /min Rachel Rayo Work Phone: LO-Gpldkflrh-Kyczip l 3300A Work Phone: 05-15-2021 11:16-0500 Respiratory rate 16 /min Rachel Rayo Work Phone: LU-Hjdwcgsup-Nmmpkc l 3300A Work Phone: 05-15-2021 11:16-0500 Systolic blood pressure 120 mm[Hg] Rachel Rayo Work Phone: IW-Kkfmqqgsv-Mgookt l 3300A Work Phone: 05-13-2021 11:40-0500 Body mass index (BMI) [Ratio] 28.35 kg/m2 Rachel Rayo Work Phone: SG-Fwqqcaawzg-Oyokn ebenezer 2100 DO Work Phone: 05-13-2021 11:40-0500 Body surface area Derived from formula 2.03 m2 Rachel Rayo Work Phone: PJ-Swctxidrgm-Ziwxk ebenezer 2100 DO Work Phone: 05-13-2021 11:40-0500 Body weight 87.09 kg Rachel Rayo Work Phone: LL-Qulhyddqgr-Exsyu ebenezer 2100 DO Work Phone: 05-13-2021 11:40-0500 Diastolic blood pressure 76 mm[Hg] Rachel Rayo Work Phone: SQ-Mxysljkyhq-Xduqk ebenezer 2100 DO Work Phone: 05-13-2021 11:40-0500 Heart rate 115 /min Rachel Rayo Work Phone: QD-Ynfxapzyat-Goehi ebenezer 2100 DO Work Phone: 05-13-2021 11:40-0500 SaO2% (BldA) [Mass fraction] 94 % Rachel Rayo Work Phone: NY-Szgbioguhu-Ylekd ebenezer 2100 DO Work Phone: 05-13-2021 11:40-0500 Systolic blood pressure 134 mm[Hg] Rachel Rayo Work Phone: JP-Llpvvyjowp-Ocjhi ebenezer 2100 DO Work Phone: 05-07-2021 08:15-0500 [...] height 175.26 cm Rachel Rayo Work Phone: BX-Lxfczfrzg-Zbruey 170 DO Work Phone: 04-10-2021 11:27-0500 Body mass index (BMI) [Ratio] 28.8 kg/m2 Rachel Rayo Work Phone: OY-Bdjwpnxhl-Yhylfb 170 DO Work Phone: 04-10-2021 11:27-0500 Body surface area Derived from formula 2.04 m2 Rachel Rayo Work Phone: YM-Qvniinrac-Ryekxv 170 DO Work Phone: 04-10-2021 11:27-0500 Body temperature 96 [degF] Rachel Rayo Work Phone: PD-Xpzqiqgvi-Ayfroq 170 DO Work Phone: 04-10-2021 11:27-0500 Body weight 88.45 kg Rachel Rayo Work Phone: PF-Twgjijoxf-Gjpglb 170 DO Work Phone: 04-10-2021 11:27-0500 Diastolic blood pressure 84 mm[Hg] Rachel Rayo Work Phone: YP-Llybhuubt-Ffsgdn 170 DO Work Phone: 04-10-2021 11:27-0500 Heart rate 108 /min Rachel Rayo Work Phone: TN-Kscfeuuzv-Mjyxuh 170 DO Work Phone: 04-10-2021 11:27-0500 Respiratory rate 16 /min Rachel Rayo Work Phone: JT-Vxcbgcpwt-Zfhmjn 170 DO Work Phone: 04-10-2021 11:27-0500 Systolic blood pressure 136 mm[Hg] Rachel Rayo Work Phone: QE-Wflwugvag-Lwbjwh 170 DO Work Phone: 04-01-2021 11:26-0500 Body mass index (BMI) [Ratio] 29.09 kg/m2 Rachel Rayo Work Phone: [facility] A2470 DO Work Phone: 04-01-2021 11:26-0500 Body surface area Derived from formula 2.05 m2 Rachel Rayo Work Phone: [facility] A2470 DO Work Phone: 04-01-2021 11:26-0500 Body weight 89.36 kg Rachel Rayo Work Phone: [facility] A2470 DO Work Phone: 04-01-2021 11:26-0500 Heart rate 99 /min Rachel Rayo Work Phone: [facility] A2470 DO Work Phone: 04-01-2021 11:26-0500 SaO2% [...] 2.06 m2 Rachel Rayo Work Phone: [facility] A2470 DO Work Phone: 04-01-2021 10:32-0500 Body [...] 123 mm[Hg] Rachel Rayo Work Phone: [facility] A2470 DO Work Phone: 04-01-2021 10:32-0500 17 1 Rachel Rayo Work Phone: [facility] A2470 DO Work Phone: Comment on above: [facility] 04-01-2021 10:32-0500 3 1 Rachel Rayo Work [facility] Work Phone: Comment on above: [employer] 02-21-2021 11:04-0400 Body temperature 96.6 [degF] Rachel Rayo Work Phone: ZZ-Cfmoybhht-Ytmbje 170 DO Work Phone: 02-21-2021 11:04-0400 Diastolic blood pressure 70 mm[Hg] Rachel Rayo Work Phone: SX-Yylrjgkah-Crbjam 170 DO Work Phone: 02-21-2021 11:04-0400 Heart rate 80 /min Rachel Rayo Work Phone: YK-Qeuhwggfs-Lwvlnw 170 DO Work Phone: 02-21-2021 11:04-0400 Respiratory rate 16 /min Rachel Rayo Work Phone: QH-Tskoowypa-Cgjepo 170 DO Work Phone: 02-21-2021 11:04-0400 Systolic blood pressure 134 mm[Hg] Rachel Rayo Work Phone: ZH-Uuxyvredo-Uyacfo 170 DO Work Phone: 02-05-2021 14:31-0400 Body height 175.26 cm Rachel Rayo Work Phone: QP-Koaouvhnq-Bbzzm 204 Work Phone: 02-05-2021 14:31-0400 Body mass index (BMI) [Ratio] 29.68 kg/m2 Rachel Rayo Work Phone: MG-Uptjtplwr-Tojvy 204 Work Phone: 02-05-2021 14:31-0400 Body surface area Derived from formula 2.07 m2 Rachel Rayo Work Phone: BT-Zravadghi-Rmxrr 204 Work Phone: 02-05-2021 14:31-0400 Body temperature 97.2 [degF] Rachel Rayo Work Phone: JB-Mtwdyafyw-Hczik 204 Work Phone: 02-05-2021 14:31-0400 Body weight 91.17 kg Rachel Rayo Work Phone: GM-Nvxrbqnkb-Mncbc 204 Work Phone: 02-05-2021 14:31-0400 Diastolic blood pressure 70 mm[Hg] Rachel Rayo Work Phone: NS-Lohtytuzw-Snkcq 204 Work Phone: 02-05-2021 14:31-0400 Heart rate 82 /min Rachel Rayo Work Phone: RI-Ayuugtcnb-Ulccw 204 Work Phone: 02-05-2021 14:31-0400 Respiratory rate 18 /min Rachel Rayo Work Phone: UE-Zhqntggqc-Avihs 204 Work Phone: 02-05-2021 14:31-0400 SaO2% (BldA) [Mass fraction] 95 % Rachel Rayo Work Phone: CS-Jecfzbbuf-Rmerl 204 Work Phone: 02-05-2021 14:31-0400 Systolic blood pressure 120 mm[Hg] Rachel Rayo Work Phone: OY-Siidgdqao-Xrxtb 204 Work Phone: 01-15-2021 08:06-0400 Body height 175.26 cm Rachel Rayo Work Phone: AI-Zriphmuoaj-Nswrx ake 2100 DO Work Phone: 01-15-2021 08:06-0400 Body mass index (BMI) [Ratio] 28.94 kg/m2 Rachel Rayo Work Phone: DY-Olztlngzoq-Vruiu ake 2100 DO Work Phone: 01-15-2021 08:06-0400 Body surface area Derived from formula 2.05 m2 Rachel Rayo Work Phone: MV-Xvbnfyayaf-Tzamq ebenezer 2100 DO Work Phone: 01-15-2021 08:06-0400 Body temperature 97.6 [degF] Rachel Rayo Work Phone: SE-Dajcckfgwf-Yzzdy ebenezer 2100 DO Work Phone: 01-15-2021 08:06-0400 Body weight 88.91 kg Rachel Rayo Work Phone: VF-Voqfiymcgr-Mqkeh ebenezer 2100 DO Work Phone: 01-15-2021 08:06-0400 Diastolic blood pressure 91 mm[Hg] Rachel Rayo Work Phone: HW-Nebnwrbsti-Yowts ebenezer 2100 DO Work Phone: 01-15-2021 08:06-0400 Heart rate 84 /min Rachel Rayo Work Phone: TD-Hzmuwynuuc-Ohgbf ebenezer 2100 DO Work Phone: 01-15-2021 08:06-0400 Respiratory rate 18 /min Rachel Rayo Work Phone: XJ-Yzlcmhhwiu-Dwjgz ebenezer 2100 DO Work Phone: 01-15-2021 08:06-0400 SaO2% (BldA) [Mass fraction] 94 % Rachel Rayo Work Phone: GD-Rugwzujcxq-Sjgsj ebenezer 2100 DO Work Phone: 01-15-2021 08:06-0400 Systolic blood pressure 136 mm[Hg] Rachel Rayo Work Phone: JR-Cbznyjzzbj-Dxvix ebenezer 2100 DO Work Phone: 01-02-2021 09:41-0400 [...] pressure 125 mm[Hg] Rachel Rayo Work Phone: [facility] [address] [place] Work Phone: 12-12-2020 14:10-0400 Body temperature 96.8 [degF] Rachel Rayo Work Phone: FS-Kqcqtpdwy-Ldglqp 170 DO Work Phone: 12-12-2020 14:10-0400 Diastolic blood pressure 80 mm[Hg] Rachel Rayo Work Phone: QD-Rqugaljeo-Fjpbzn 170 DO Work Phone: 12-12-2020 14:10-0400 Heart rate 72 /min Rachel Rayo Work Phone: GZ-Jevuglcgn-Aiybxn 170 DO Work Phone: 12-12-2020 14:10-0400 Respiratory rate 16 /min Rachel Rayo Work Phone: IS-Srpuipaki-Ldonbw 170 DO Work Phone: 12-12-2020 14:10-0400 Systolic blood pressure 130 mm[Hg] Rachel Rayo Work Phone: FM-Vcxgqmvwu-Xemmei 170 DO Work Phone: 12-06-2020 08:38-0400 Body height 175.26 cm Rachel Rayo [facility] [place] Work Phone: 12-06-2020 08:38-0400 Body mass index (BMI) [Ratio] 29.31 kg/m2 Rachel Rayo Work Phone[facility] [place] Work Phone: 12-06-2020 08:38-0400 Body surface area Derived from formula 2.06 m2 Rachel Rayo Work Phone[facility] [place] Work Phone: 12-06-2020 08:38-0400 Body temperature 97.4 [degF] Rachel Rayo [facility] Phone[facility] [place] Work Phone: 12-06-2020 08:38-0400 Body weight 90.04 kg Rachel Rayo [facility] [place] Work Phone: 12-06-2020 08:38-0400 Diastolic blood pressure 89 mm[Hg] [facility] [place] Work Phone: 12-06-2020 08:38-0400 Heart rate 68 /min Rachel Rayo [facility] Phone: [facility] [place] Work Phone: 12-06-2020 08:38-0400 Respiratory rate 16 /min Rachel Rayo Work Phone: [facility] [place] Work Phone: 12-06-2020 08:38-0400 SaO2% (BldA) [Mass fraction] 97 % Rachel Rayo Work Phone: [facility] [place] Work Phone: 12-06-2020 08:38-0400 Systolic blood pressure 150 mm[Hg] Rachel Rayo Work Phone: [facility] [place] Work Phone: 11-26-2020 10:52-0400 Diastolic blood pressure 75 mm[Hg] Rachel Rayo Work Phone: AR-Hnbtelakcg-Tladk ebenezer 2100 DO Work Phone: 11-26-2020 10:52-0400 Heart rate 91 /min Rachel Rayo Work Phone: NH-Amricbyqji-Hmxmw ebenezer 2100 DO Work Phone: 11-26-2020 10:52-0400 SaO2% (BldA) [Mass fraction] 94 % Rachel Rayo Work Phone: SO-Xfkhlywnfz-Cstpn ebenezer 2100 DO Work Phone: 11-26-2020 10:52-0400 Systolic blood pressure 133 mm[Hg] Rachel Rayo Work Phone: HV-Czriolbznz-Yighu ebenezer 2100 DO Work Phone: 11-22-2020 11:20-0400 Body temperature 96.1 [degF] Rachel Rayo Work Phone: WG-Zfmwlmgff-Uxttnr 170 DO Work Phone: 11-22-2020 11:20-0400 Diastolic blood pressure 70 mm[Hg] Rachel Rayo Work Phone: IF-Ildstnqsf-Qqnkil 170 DO Work Phone: 11-22-2020 11:20-0400 Heart rate 88 /min Rachel Rayo Work Phone: OO-Kennfpjpb-Lhnasp 170 DO Work Phone: 11-22-2020 11:20-0400 Respiratory rate 20 /min Rachel Rayo Work Phone: DR-Tuegsrape-Vgtxpc 170 DO Work Phone: 11-22-2020 11:20-0400 Systolic blood pressure 126 mm[Hg] Rachel Rayo Work Phone: PK-Belxmgqsb-Tfwona 170 DO Work Phone: 11-07-2020 14:31-0400 Body temperature 96 [degF] Rachel Rayo Work Phone: MD-Wuaqswdun-Flmkik 170 DO Work Phone: 11-07-2020 14:31-0400 Diastolic blood pressure 70 mm[Hg] Rachel Rayo Work Phone: KV-Vwumkgwem-Twnduv 170 DO Work Phone: 11-07-2020 14:31-0400 Heart rate 100 /min Rachel Rayo Work Phone: VQ-Utnnrqbjb-Ujzwib 170 DO Work Phone: 11-07-2020 14:31-0400 Respiratory rate 16 /min Rachel Rayo Work Phone: YK-Ytxzsvjcw-Esxczl 170 DO Work Phone: 11-07-2020 14:31-0400 Systolic blood pressure 124 mm[Hg] Rachel Rayo Work Phone: DC-Tpztwcgbz-Rpnucq 170 DO Work Phone: 10-03-2020 14:24-0400 Body temperature 95.9 [degF] Rachel Rayo Work Phone: ZH-Upauazlew-Jrykyu 170 DO Work Phone: 10-03-2020 14:24-0400 Diastolic blood pressure 74 mm[Hg] Rachel Rayo Work Phone: HX-Rfuvlgfsq-Vcjjup 170 DO Work Phone: 10-03-2020 14:24-0400 Heart rate 100 /min Rachel Rayo Work Phone: AL-Zrxnnvxpp-Ygvhpz 170 DO Work Phone: 10-03-2020 14:24-0400 Respiratory rate 16 /min Rachel Rayo Work Phone: UW-Birdonuqp-Rzxkxf 170 DO Work Phone: 10-03-2020 14:24-0400 Systolic blood pressure 130 mm[Hg] Rachel Rayo Work Phone: KN-Zpfxktgop-Hhqmzy 170 DO Work Phone: 09-24-2020 14:53-0400 Body mass index (BMI) [Ratio] 27.32 kg/m2 Rachel Rayo Work Phone: MZ-Wujemzddbf-Ngbsv ebenezer 2100 DO Work Phone: 09-24-2020 14:53-0400 Body surface area Derived from formula 2 m2 Rachel Rayo Work Phone: UZ-Ljpcuxbtfa-Tfqup ebenezer 2100 DO Work Phone: 09-24-2020 14:53-0400 Body weight 83.91 kg Rachel Amador Rayo Work Phone: YT-Wssijpgdtu-Jhoze ebenezer 2100 DO Work Phone: 09-24-2020 14:53-0400 Diastolic blood pressure 70 mm[Hg] Rachel Rayo Work Phone: IO-Pqldoxmrbu-Jgvkh ebenezer 2100 DO Work Phone: 09-24-2020 14:53-0400 Heart rate 70 /min Rachel Amador Rayo Work Phone: GE-Fghmkoaauw-Dfxny ebenezer 2100 DO Work Phone: 09-24-2020 14:53-0400 Systolic blood pressure 128 mm[Hg] Rachel Amador Rayo Work Phone: KX-Ieghanpkjr-Gfwis ebenezer 2100 DO Work Phone: 09-19-2020 13:33-0400 [...] blood pressure 70 mm[Hg] Courtney Brown MD KK-Kavxqpuni-Cinwtw 170 DO Work Phone: Comment on above: Location: LUE; Position: Sitting 09-19-2020 13:33-0400 Heart rate 92 /min Courtney Brown MD WE-Wmeuilvnl-Y sanjiv 170 DO Work Phone: Comment on above: Location: L Radial; Quality: Regular 09-19-2020 13:33-0400 Respiratory rate 16 /min Courtney Brown MD [facility] [place] 170 DO Work Phone: Comment on above: Quality: Normal 09-19-2020 13:33-0400 Systolic blood pressure 104 mm[Hg] Courtney Brown MD RC-Lhgkxraic-Xvhegr 170 DO Work Phone: Comment on above: Location: LUE; Position: Sitting 09-19-2020 11:33-0400 Body height 175.26 cm Rachel Rayo Work Phone: HJ-Qnjdvtaifh-Chjuj ebenezer 2100 DO Work Phone: 09-19-2020 11:33-0400 Body mass index (BMI) [Ratio] 27.47 kg/m2 Rachel Rayo Work Phone: MF-Hkkvqqemxe-Ftqam ebenezer 2100 DO Work Phone: 09-19-2020 11:33-0400 Body surface area Derived from formula 2 m2 Rachel Rayo Work Phone: LD-Csmhexhaic-Urgxe ebenezer 2100 DO Work Phone: 09-19-2020 11:33-0400 Body temperature 96.8 [degF] Rachel Raoy Work Phone: LX-Hzmqouvvxo-Rnoty ebenezer 2100 DO Work Phone: 09-19-2020 11:33-0400 Body weight 84.37 kg Rachel Rayo Work Phone: GF-Wkrxrdatti-Nsyhq ebenezer 2100 DO Work Phone: 09-19-2020 11:33-0400 Diastolic blood pressure 70 mm[Hg] Rachel Rayo Work Phone: KP-Dobfkwtzyx-Gmggo ebenezer 2100 DO Work Phone: 09-19-2020 11:33-0400 Heart rate 92 /min Rachel Rayo Work Phone: QB-Hrekazlhlj-Xoksj ebenezer 2100 DO Work Phone: 09-19-2020 11:33-0400 Respiratory rate 16 /min Rachel Rayo Work Phone: XV-Pjnrnvtlkf-Azfuc ebenezer 2100 DO Work Phone: 09-19-2020 11:33-0400 Systolic blood pressure 104 mm[Hg] Rachel Rayo Work Phone: BR-Vwudffohbp-Bsnxw ebenezer 2100 DO Work Phone: 09-08-2020 17:45-0400 [...] 177.8 cm Jarret Tong MD [facility] Work Phone: 09-08-2020 12:03-0400 Body mass index (BMI) [Ratio] 25.83 kg/m2 Jarret Tong MD Work Phone: [facility] Work Phone: 09-08-2020 12:03-0400 Body weight 81.65 kg Jarret Tong MD Work Phone: [facility] Work Phone: 09-08-2020 11:58-0400 Body temperature 96.3 [degF] Jarret Tong MD Work Phone: [facility] Work Phone: 09-05-2020 15:13-0400 Body temperature 95.5 [degF] Courtney Brown MD [facility] [place] 170 DO Work Phone: Comment on above: Method: Temporal 09-05-2020 15:13-0400 Diastolic blood pressure 60 mm[Hg] Courtney Brown MD YD-Nujusurbc-Nnjkbh 170 DO Work Phone: Comment on above: Location: LUE; Position: Sitting 09-05-2020 15:13-0400 Heart rate 80 /min Courtney Brown MD YR-Gemdmvrpq-M sanjiv 170 DO Work Phone: Comment on above: Location: L Radial; Quality: Regular 09-05-2020 15:13-0400 Respiratory rate 16 /min Courtney Brown MD [facility] [place] 170 DO Work Phone: Comment on above: Quality: Normal 09-05-2020 15:13-0400 Systolic blood pressure 96 mm[Hg] Courtney Brown MD FJ-Trvgaafek-Gmzcqp 170 DO Work Phone: Comment on above: Location: LUE; Position: Sitting 09-05-2020 13:13-0400 Body temperature 95.5 [degF] Rachel Rayo Work Phone: RL-Myexhvmtbh-Rkdxg ebenezer 2100 DO Work Phone: 09-05-2020 13:13-0400 Diastolic blood pressure 60 mm[Hg] Rachel E Rayo Work Phone: UA-Aybukkiiug-Fwfgl ebenezer 2100 DO Work Phone: 09-05-2020 13:13-0400 Heart rate 80 /min Rachel English Rayo Work Phone: VT-Jzmxzplktn-Emvds ebenezer 2100 DO Work Phone: 09-05-2020 13:13-0400 Respiratory rate 16 /min Rachel E Rayo Work Phone: LB-Ivwndfpbre-Dlvcw ebenezer 2100 DO Work Phone: 09-05-2020 13:13-0400 Systolic blood pressure 96 mm[Hg] Rachel English Rayo Work Phone: KE-Ftfawwdxto-Zvqxo ebenezer 2100 DO Work Phone: 09-03-2020 17:08-0400 Body mass index (BMI) [Ratio] 27.32 kg/m2 Courtney Brown MD SZ-Surusoazf-Rhwrow 170 DO Work Phone: 09-03-2020 17:08-0400 Body surface area Derived from formula 2 m2 Courtney Brown MD VD-Rmmaemzcx-Hnwzje 170 DO Work Phone: 09-03-2020 17:08-0400 Body weight 83.91 kg Courtney Brown MD MV-Lvebebrew-H sanjiv 170 DO Work Phone: 09-03-2020 17:08-0400 Diastolic blood pressure 63 mm[Hg] Courtney Brown MD VC-Kykbvflsi-Crxnmu 170 DO Work Phone: 09-03-2020 17:08-0400 Systolic blood pressure 130 mm[Hg] Courtney Brown MD PT-Wtolujynd-Sikrrc 170 DO Work Phone: 09-03-2020 15:08-0400 Body mass index (BMI) [Ratio] 27.32 kg/m2 Rachel Rayo Work Phone: YJ-Cswvgtyyiv-Ifoxt ebenezer 2100 DO Work Phone: 09-03-2020 15:08-0400 Body surface area Derived from formula 2 m2 Rachel Rayo Work Phone: UG-Rekeevqvpi-Kjpgj ebenezer 2100 DO Work Phone: 09-03-2020 15:08-0400 Body weight 83.91 kg Rachel Rayo Work Phone: JO-Jtkjudiupb-Zesns ebenezer 2100 DO Work Phone: 09-03-2020 15:08-0400 Diastolic blood pressure 63 mm[Hg] Rachel English Rayo Work Phone: BC-Lbgilvirei-Owqha ebenezer 2100 DO Work Phone: 09-03-2020 15:08-0400 Systolic blood pressure 130 mm[Hg] Rachel English Rayo Work Phone: RZ-Olvblghnhg-Zdvyz ebenezer 2100 DO Work Phone: 08-30-2020 16:51-0400 [...] blood pressure 124 mm[Hg] Courtney Brown MD XQ-Dmsbvyqoq-Stvpjr 170 DO Work Phone: Comment on above: [place] [facility] [place] 08-30-2020 14:51-0400 Body temperature 96.9 [degF] Rachel Amador Rayo Work Phone: JZ-Nmstsxtowz-Eeaoz ebenezer 2100 DO Work Phone: 08-30-2020 14:51-0400 Diastolic blood pressure 84 mm[Hg] Rachel Rayo Work Phone: YT-Hdidsvujnr-Xzzfa ebenezer 2100 DO Work Phone: 08-30-2020 14:51-0400 Heart rate 80 /min Rachel Amador Rayo Work Phone: XH-Epuacaebpf-Bjphn ebenezer 2100 DO Work Phone: 08-30-2020 14:51-0400 Respiratory rate 16 /min Rachel Amador Rayo Work Phone: VA-Hhupkafgev-Mknot ebenezer 2100 DO Work Phone: 08-30-2020 14:51-0400 Systolic blood pressure 124 mm[Hg] Rachel Amador Rayo Work Phone: KL-Nfeowqkznm-Bjlir ebenezer 2100 DO Work Phone: 08-29-2020 14:01-0400 Body height 175.26 cm Courtney Brown MD, MP-Neurology-[facility] 170 DO Work Phone: 08-29-2020 14:01-0400 Body mass index (BMI) [Ratio] 30.72 kg/m2 Courtney Brown MD RS-Umjekobgj-Jihhpx 170 DO Work Phone: 08-29-2020 14:01-0400 Body surface area Derived from formula 2.1 m2 Courtney Brown MD ET-Totiqskyw-Mdmygy 170 DO Work Phone: 08-29-2020 14:01-0400 Body weight 94.35 kg Courtney Brown MD, MP-Neurology-M sanjiv 170 DO Work Phone: 08-29-2020 12:01-0400 Body height 175.26 cm Rachel Rayo Work Phone: IE-Uuxtamirch-Pwvep ebenezer 2100 DO Work Phone: 08-29-2020 12:01-0400 Body mass index (BMI) [Ratio] 30.72 kg/m2 Rachel Rayo Work Phone: VF-Ceyrrswqwo-Yhjvf ebenezer 2100 DO Work Phone: 08-29-2020 12:01-0400 Body surface area Derived from formula 2.1 m2 Rachel Rayo Work Phone: ID-Wsamxemnms-Twgmu ebenezer 2100 DO Work Phone: 08-29-2020 12:01-0400 Body weight 94.35 kg Rachel Rayo Work Phone: OX-Irikhxgdtu-Lmusj ebenezer 2100 DO Work Phone: 08-25-2020 15:09-0400 [...] (Body Mass Index) 31.75 kg/m2 Courtney Brown MPXL-Ggwmikuttr-Uwyls ebenezer 2100 DO Work Phone: 05-08-2020 14:14-0500 Body weight 97.52 kg Courtney Brown MP-Allergists-We stl ebenezer 2100 DO Work Phone: 05-08-2020 14:14-0500 BP Diastolic 78 mm[Hg] Courtney Brown MP-Allergists-We stl ebenezer 2100 DO Work Phone: 05-08-2020 14:14-0500 BP Systolic 120 mm[Hg] Courtney Brown MP-Allergists-We stl ebenezer 2100 DO Work Phone: 05-08-2020 14:14-0500 BSA (Body Surface Area) 2.13 m2 Courtney Brown MPSR-Wlkcnxblax-Daxuo ebenezer 2100 DO Work Phone: 05-08-2020 14:14-0500 Height 175.26 cm Courtney Brown MP-Allergists-We stl ebenezer 2100 DO Work Phone: 02-14-2020 14:37-0400 BMI (Body Mass Index) 32.93 kg/m2 Courtney Brown MPIK-Ethaaguble-Aqxfp ebenezer Work Phone: 02-14-2020 14:37-0400 Body weight 101.15 kg Courtney Brown MP-Allergists-We stl ebenezer Work Phone: 02-14-2020 14:37-0400 BSA (Body Surface Area) 2.16 m2 Courtney Brown MPNG-Jllabtfjlh-Rsmju ebenezer Work Phone: 02-14-2020 14:37-0400 Height 175.26 cm Courtney Brown MP-Allergists-We stl ebenezer Work Phone: 02-14-2020 14:37-0400 Pulse (Heart Rate) 104 /min Courtney Brown MP-Allergists -Westl ebenezer Work Phone: 02-14-2020 14:37-0400 Pulse Oximetry 97 % Courtney Brown MP-Allergists-We stl ebenezer Work Phone: 11-23-2019 16:03-0400 BMI (Body Mass Index) 32.49 kg/m2 Courtney Brown MPWM-Zayllvqlu-Muwyne 170 DO Work Phone: 11-23-2019 16:03-0400 Body weight 99.79 kg Courtney Brown MP-Neurology-Med jono 170 DO Work Phone: 11-23-2019 16:03-0400 BSA (Body Surface Area) 2.15 m2 Courtney Brown IY-Hniwbftiy-Nnpvqo 170 DO Work Phone: 11-23-2019 16:03-0400 Height 175.26 cm Courtney Brown MP-Neurology-Med jono 170 DO Work Phone: 11-15-2019 18:30-0400 BMI (Body Mass Index) 32.49 kg/m2 Courtney Brown MPFZ-Ncwmolqlo-Rgxaqf 170 DO Work Phone: 11-15-2019 18:30-0400 Body weight 99.79 kg Courtney Brown BE-Dzetngcvx-Okr jono 170 DO Work Phone: 11-15-2019 18:30-0400 BP Diastolic 78 mm[Hg] Courtney Brown WA-Ujrgkepef-Wjm jono 170 DO Work Phone: 11-15-2019 18:30-0400 BP Systolic 124 mm[Hg] Courtney Brown HJ-Ucploisdm-Nhz jono 170 DO Work Phone: 11-15-2019 18:30-0400 BSA (Body Surface Area) 2.15 m2 Courtney Brown RF-Rpkgiclmq-Dnnxhn 170 DO Work Phone: 11-15-2019 18:30-0400 Height 175.26 cm Courtney Brown ON-Aesudyolx-Jor jono 170 DO Work Phone: 11-07-2019 16:34-0400 BMI (Body Mass Index) 32.49 kg/m2 Courtney Brown OZ-Medqmmcjm-Ptyhjt 170 DO Work Phone: 11-07-2019 16:34-0400 Body Temperature 97.6 [degF] Courtney Brown XM-Wfvueazuz-Gj bo 170 DO Work Phone: Comment on above: Method: Tympanic 11-07-2019 16:34-0400 Body weight 99.79 kg Courtney Brown WE-Swgophoyk-Ahd jono 170 DO Work Phone: 11-07-2019 16:34-0400 BP Diastolic 70 mm[Hg] Courtney Brown BW-Ffhatbgci-Mcd jono 170 DO Work Phone: Comment on above: Location: [place]; Position: Sitting 11-07-2019 16:34-0400 BP Systolic 110 mm[Hg] Courtney Brown XC-Ewblzllis-Box jono 170 DO Work Phone: Comment on above: Location: [place]; Position: Sitting 11-07-2019 16:34-0400 BSA (Body Surface Area) 2.15 m2 Courtney Brown YY-Arsngppnb-Bjptmm 170 DO Work Phone: 11-07-2019 16:34-0400 Height 175.26 cm Courtney Brown VM-Cfldglegk-Ptp jono 170 DO Work Phone: 11-07-2019 16:34-0400 Pulse (Heart Rate) 76 /min Courtney Brown MP-Neurology- Gauthier 170 DO Work Phone: Comment on above: Location: [facility]; Quality: Regular 11-07-2019 16:34-0400 Respiratory Rate 20 /min Courtney Brown GM-Wjhcoqsxm-Bp bo 170 DO Work Phone: Comment on above: Quality: Normal 04-01-2019 14:18-0500 BP Diastolic 87 mm[Hg] [facility] [place] 04-01-2019 14:18-0500 BP Systolic 122 mm[Hg] [place], [place] 04-01-2019 14:18-0500 Pulse (Heart Rate) 90 /min [facility] [place] 04-01-2019 14:18-0500 Pulse Oximetry 93 % [place], [place] 04-01-2019 14:18-0500 Respiratory Rate 16 /min [facility], [place] 04-01-2019 13:19-0500 Body Temperature 98.1 [degF] [place], [place] 04-01-2019 12:08-0500 BMI (Body Mass Index) 31.28 kg/m2 [facility] [place] 04-01-2019 12:08-0500 Body weight 98.88 kg [facility] [place] 04-01-2019 12:08-0500 Height 177.8 cm [place], [place] 12-26-2018 16:15-0400 BP Diastolic 85 mm[Hg] [facility] [place] [facility] [place] 12-26-2018 16:15-0400 BP Systolic 117 mm[Hg] [facility] [place] [facility] [place] 12-26-2018 16:15-0400 Pulse (Heart Rate) 82 /min [facility], [place] 12-26-2018 16:00-0400 Pulse [facility]ximetry 98 % [facility] [place] 12-26-2018 12:34-0400 Body Temperature 97.9 [degF] [facility], [place] 12-26-2018 12:34-0400 Res[facility] Rate 18 /[facility] [place] 08-18-2018 16:34-0400 BP Diastolic 80 mm[Hg] Courtney [...] (Body Mass Index) 29.54 kg/m2 Courtney Brown MPMG-Jdxttvdgwx-Nlked a Work Phone: 08-18-2018 11:50-0400 Body weight 90.72 kg Courtney Brown MP-Allergists-Me din a Work Phone: 08-18-2018 11:50-0400 BSA (Body Surface Area) 2.07 m2 Courtney Brown MPFP-Lqhyimkhna-Nawzs a Work Phone: 08-18-2018 11:50-0400 Height 175.26 cm Courtney Brown MP-Allergists-Me din a Work Phone: Encounters Encounter Date Encounter Type Care Provider Facility Start: 10-06-2024 ambulatory PA-C JESSICA PAYTON F acility:[facility] Start: 09-20-2024 End: 09-20-2024 ambulatory JESSICA PARKERRY Facility:[facility] Start: 09-20-2024 End: 09-20-2024 Patient encounter procedure JESSICA Amador PAYTON [facility] Start: 09-14-2024 End: 09-14-2024 Lab Drop off JESSICA Amador PAYTON [facility] Start: 09-14-2024 End: 09-14-2024 ambulatory JESSICA PAYTON Facility:[facility] Start: 09-14-2024 End: 09-14-2024 Patient encounter procedure JESSICABRIAN PAYTON [facility] Start: 09-13-2024 End: 09-13-2024 External Result Encounter Melissa Wilson TIN POT OPERATOR Work Phone: [facility] External [facility] Unsolicited Start: 09-13-2024 End: 09-13-2024 External Result Encounter Melissa Wilson TIN POT OPERATOR Work Phone: [facility] External Department Unsolicited Start: 09-13-2024 End: 09-13-2024 ambulatory COURTNEY Rowan [facility] Start: 09-13-2024 End: 09-13-2024 Office outpatient visit 25 minutes Courtney Brown MD Work Phone: [facility] Comment on above: Hypokalemia (Primary Dx); Asthma with chronic obstructive pulmonary disease (COPD) (Multi) Start: 09-13-2024 ambulatory Rachel Rayo Facility :[facility] Start: 09-12-2024 End: 09-12-2024 ambulatory [facility] Start: 09-12-2024 End: 09-12-2024 Office outpatient visit 25 minutes Jessica Moore RN ADMIT-STRADDLE TRUCK DRIVER Work Phone: [facility] Comment on above: Chronic migraine wit hout aura without status migrainosus, not intractable (Primary Dx); Intractable chronic migraine without aura and with status migrainosus; Dizziness Start: 08-24-2024 End: 08-24-2024 ambulatory Rachel Rayo MD Work Phone: [facility] Work Phone: Start: 08-24-2024 End: 08-24-2024 Patient encounter procedure Rachel Rayo MD Work Phone: [facility] Work Phone: Start: 08-17-2024 End: 08-17-2024 ambulatory [facility] Start: 08-17-2024 End: 08-17-2024 Office outpatient visit 25 minutes Cole Erlin RN ADMIT-STRADDLE TRUCK DRIVER Work Phone: [facility] Comment on above: 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) Start: 08-10-2024 End: 08-10-2024 ambulatory JODIE E BYRON [facility] Start: 08-10-2024 End: 08-10-2024 Patient encounter procedure Jodie Matthews MD Work Phone: [facility] Comment on above: Intractable chronic migraine without aura and with status migrainosus Start: 07-25-2024 End: 07-25-2024 Office outpatient visit 25 minutes Rich Magana MD MPH Work Phone: [facility] Comment on above: ILD (interstitial anel ng disease) (Multi) (Primary Dx) Start: 07-25-2024 End: 07-25-2024 ambulatory RICH MAGANA [facility] Start: 07-07-2024 End: 07-07-2024 ambulatory Rachel Rayo MD Work Phone: [facility] Work Phone: Start: 07-07-2024 End: 07-07-2024 Patient encounter procedure Rachel Rayo MD Work Phone: [facility] Work Phone: Start: 07-07-2024 End: 07-07-2024 ambulatory Rachel Rayo MD Work Phone: [facility] Work Phone: Start: 07-07-2024 End: 07-07-2024 Encounter for general adult medical examination without abnormal findings Rachel Rayo MD Work Phone: [facility] Start: 07-07-2024 End: 07-07-2024 Patient encounter procedure Rachel Rayo MD Work Phone: [facility] Work Phone: Start: 07-06-2024 End: 07-06-2024 Office outpatient visit 10 minutes [facility] RN ADMIT-STRADDLE TRUCK DRIVER Work Phone: [facility] Comment on above: Chronic migraine wit hout aura without status migrainosus, not intractable (Primary Dx) Start: 07-06-2024 End: 07-06-2024 ambulatory [facility] Start: 07-06-2024 End: 07-06-2024 ambulatory RACHEL RAYO Facility:[facility] Start: 07-06-2024 End: 07-06-2024 Patient encounter procedure Issa Gonzales [facility] Start: 07-01-2024 Non-patient / Non-visit Rachel Rayo MD Work Phone: [facility] Work Phone: Start: 06-14-2024 End: 06-14-2024 Office outpatient visit 25 minutes Courtney Brown MD Work Phone: [facility] Comment on above: Asthma with chronic obstructive pulmonary disease (COPD) (Multi) (Primary Dx); Anti-pneumococcal polysaccharide antibody deficiency (Multi) Start: 06-14-2024 End: 06-14-2024 ambulatory COURTNEY M [facility] Start: 06-09-2024 End: 06-09-2024 ambulatory Issa Gonzales Facility:[facility] Start: 06-09-2024 End: 06-09-2024 Pain Management Issa Gonzales [facility] Start: 06-02-2024 End: 06-02-2024 ambulatory [facility] Start: 06-02-2024 End: 06-02-2024 Office outpatient visit 40 minutes [facility] RN ADMIT-STRADDLE TRUCK DRIVER Work Phone: [facility] Comment on above: Chronic migraine wit hout aura without status migrainosus, not intractable (Primary Dx); Chronic migraine without aura, intractable, with status migrainosus Start: 05-31-2024 Registered Recurring Rachel schaeffer MD Work Phone: [facility] Work Phone: Start: 05-31-2024 End: 05-31-2024 ambulatory Rachel Rayo MD Work Phone: [facility] Work Phone: Start: 05-31-2024 End: 05-31-2024 Patient encounter procedure Rachel Rayo MD Work Phone: [facility] Work Phone: Start: 05-31-2024 End: 05-31-2024 ambulatory Rachel Rayo MD Work Phone: [facility] Work Phone: Start: 05-31-2024 End: 05-31-2024 Patient encounter procedure Rachel Rayo MD Work Phone: [facility] Work Phone: Start: 05-27-2024 End: 05-27-2024 External Result Encounter Melissa Wilson TIN POT OPERATOR Work Phone: [facility] External Department Unsolicited Start: 05-27-2024 End: 05-27-2024 External Result Encounter Melissa Wilson TIN POT OPERATOR Work Phone: [facility] External Department Unsolicited Start: 05-27-2024 Registered Recurring Rachel schaeffer MD Work Phone: [facility] Work Phone: Start: 05-11-2024 End: 05-11-2024 ambulatory JODIE MATTHEWS [facility] Start: 05-11-2024 End: 05-11-2024 Patient encounter procedure Jodie Matthews MD Work Phone: [facility] Comment on above: Intractable chronic migraine without aura and with status migrainosus Start: 05-09-2024 End: 05-09-2024 ambulatory RACHEL RAYO Facility:[facility] Start: 05-09-2024 End: 05-09-2024 Patient encounter procedure Issa Gonzales [facility] Start: 05-03-2024 End: 05-03-2024 Patient encounter procedure Rachel Rayo MD Work Phone: [facility] Work Phone: Start: 04-13-2024 End: 04-13-2024 Office outpatient visit 25 minutes Rich Magana MD MPH Work Phone: [facility] Comment on above: Asthma with chronic obstructive pulmonary disease (COPD) (Multi) (Primary Dx) Start: 04-13-2024 End: 04-13-2024 ambulatory RICH MAGANA [facility] Start: 04-07-2024 End: 04-07-2024 Office outpatient visit 25 minutes Jessica Moore RN ADMIT-STRADDLE TRUCK DRIVER Work Phone: [facility] Comment on above: Chronic migraine wit hout aura without status migrainosus, not intractable (Primary Dx); Current 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, unspecified whether recurrent (Multi) Start: 04-07-2024 End: 04-07-2024 ambulatory [facility] Start: 03-08-2024 End: 03-08-2024 Subsequent hospital visit by physician Shimon [id number] [facility] Comment on above: ILD (interstitial anel ng disease) (Multi) Start: 03-08-2024 End: 03-08-2024 ambulatory RICH Rowan [facility] Start: 03-08-2024 End: 03-08-2024 Office outpatient visit 40 minutes Courtney Brown MD Work Phone: [facility] Comment on above: Asthma with chronic obstructive pulmonary disease (COPD) (Multi) (Primary Dx); Anti-pneumococcal polysaccharide antibody deficiency (Multi) Start: 03-08-2024 End: 03-08-2024 ambulatory [facility] Start: 03-03-2024 End: 03-03-2024 External Result Encounter Melissa Wilson NP Work Phone: [facility] External Department Unsolicited Start: 03-03-2024 End: 03-03-2024 External Result Encounter Melissa Wilson TIN POT OPERATOR Work Phone: [facility] External Department Unsolicited Start: 02-16-2024 End: 02-16-2024 Office outpatient visit 40 minutes Courtney Brown MD Work Phone: [facility] Comment on above: Asthma with chronic obstructive pulmonary disease (COPD) (Multi) (Primary Dx); GERD without esophagitis; Anti-pneumococcal polysaccharide antibody deficiency (Multi) Start: 02-16-2024 End: 02-16-2024 ambulatory [facility] Start: 02-10-2024 End: 02-10-2024 ambulatory MD Rachel Rayo Work Phone: [facility] Work Phone: Start: 02-10-2024 End: 02-10-2024 Patient encounter procedure MD Rachel Rayo Work Phone: [facility] Work Phone: Start: 02-04-2024 Non-patient / Non-visit MD Kelly Rayo Work Phone: [facility] Work Phone: Start: 02-04-2024 End: 02-04-2024 ambulatory MD Rachel Rayo Work Phone: [facility] Work Phone: Start: 02-04-2024 End: 02-04-2024 Patient encounter procedure MD Rachel Rayo Work Phone: [facility] Work Phone: Start: 02-03-2024 End: 02-03-2024 ambulatory MD Rachel Rayo Work Phone: [facility] Work Phone: Start: 02-03-2024 End: 02-03-2024 Patient encounter procedure MD Rachel Rayo Work Phone: [facility] Work Phone: Start: 01-18-2024 End: 01-18-2024 ambulatory RACHEL RAYO Facility:[facility] Start: 01-18-2024 End: 01-18-2024 Patient encounter procedure Issa Gonzales [facility] Start: 01-11-2024 End: 01-11-2024 Patient encounter procedure Jodie Matthews MD Work Phone: [facility] Comment on above: Intractable chronic migraine without aura and with status migrainosus (Primary Dx); Chronic migraine without aura, intractable, with status migrainosus Start: 01-11-2024 End: 01-11-2024 ambulatory JODIE MATTHEWS [facility] Start: 12-29-2023 End: 12-29-2023 ambulatory Issa Gonzales Facility:[facility] Start: 12-29-2023 End: 12-29-2023 Pain Management Issa Gonzales [facility] Start: 12-10-2023 Non-patient / Non-visit MD Kelly Rayo Work Phone: [facility] Work Phone: Start: 12-07-2023 End: 12-07-2023 ambulatory [facility] Start: 12-07-2023 End: 12-07-2023 ambulatory RICH [facility] Start: 12-04-2023 End: 12-04-2023 ambulatory Barbara Duron Facility:[facility] Start: 12-04-2023 End: 12-04-2023 Patient encounter procedure Barbara Duron [facility] Start: 12-04-2023 End: 12-04-2023 ambulatory RACHEL RAYO Facility:[facility] Start: 12-04-2023 End: 12-04-2023 Pain Management [facility] Start: 12-02-2023 End: 12-02-2023 ambulatory MD Rachel Rayo Work Phone: [facility] Work Phone: Start: 12-02-2023 End: 12-02-2023 Patient encounter procedure MD Rachel Rayo Work Phone: [facility] Work Phone: Start: 12-02-2023 Registered Recurring MD Rachel Rayo [facility] Work Phone: Start: 11-30-2023 End: 11-30-2023 ambulatory COURTNEY [facility] Amb[facility] Start: 11-24-2023 Registered Recurring MD Rachel Rayo Work Phone: [facility] Work Phone: Start: 11-24-2023 End: 11-24-2023 Patient encounter procedure MD Rachel Rayo Work Phone: [facility]Ul[facility]ound [facility] [place] Work Phone: Start: 11-24-2023 End: 11-24-2023 ambulatory MD Rachel Rayo Work Phone: [facility] Work Phone: Start: 11-24-2023 End: 11-24-2023 ambulatory MD Rachel Rayo Work Phone: [facility] Work Phone: Start: 11-24-2023 End: 11-24-2023 Patient encounter procedure MD Rachel Rayo Work Phone: [facility] Work Phone: Start: 11-24-2023 End: 11-24-2023 Patient encounter procedure MD Rachel Rayo Work Phone: [facility] Start: 11-24-2023 End: 11-24-2023 ambulatory MD Rachel Rayo Work Phone: [facility] Work Phone: Start: 11-12-2023 Non-patient / Non-visit MD Kelly Rayo Work Phone: [facility] Work Phone: Start: 11-10-2023 End: 11-10-2023 ambulatory MD Rachel Rayo Work Phone: [facility] Work Phone: Start: 11-10-2023 End: 11-10-2023 Patient encounter procedure MD Rachel Rayo Work Phone: [facility] Work Phone: Start: 10-31-2023 Non-patient / Non-visit MD Kelly Rayo Work Phone: [facility] Work Phone: Start: 10-30-2023 Non-patient / Non-visit MD Kelly Rayo Work Phone: [facility] Work Phone: Start: 10-26-2023 End: 10-26-2023 ambulatory MD Rachel Rayo Work Phone: [facility] Work Phone: Start: 10-26-2023 End: 10-26-2023 Patient encounter procedure MD Rachel Rayo Work Phone: [facility] Work Phone: Start: 10-16-2023 End: 10-17-2023 Emergency department patient visit MD Rachel Rayo Work Phone: [facility] Work Phone: Start: 10-12-2023 End: 10-12-2023 Patient encounter procedure Jodie Matthews MD Work Phone: [facility] Comment on above: Intractable chronic migraine without aura and with status migrainosus Start: 10-12-2023 End: 10-12-2023 ambulatory [facility] Start: 10-08-2023 End: 10-08-2023 Office outpatient new 30 minutes [place] Matt Hilton Work Phone: [facility] Comment on above: Post concussion synd kayleen Start: 10-08-2023 End: 10-08-2023 ambulatory [facility] Ambulatory Start: 09-15-2023 End: 09-15-2023 Patient encounter procedure MD Rachel Rayo Work Phone: [facility] Work Phone: Start: 09-14-2023 Non-patient / Non-visit MD Kelly Rayo Work Phone: [facility] Work Phone: Start: 09-04-2023 End: 09-04-2023 ambulatory MD Rachel Rayo Work Phone: [facility] Work Phone: Start: 09-04-2023 End: 09-04-2023 Patient encounter procedure MD Rachel Rayo Work Phone: [facility] Work Phone: Start: 09-04-2023 Registered Recurring MD Rachel Rayo Work Phone: [facility] Work Phone: Start: 09-01-2023 End: 09-01-2023 Patient encounter procedure JESSICA PAYTON [facility] Start: 08-28-2023 End: 08-28-2023 ambulatory MD Rachel Rayo Work Phone: [facility] Work Phone: Start: 08-28-2023 End: 08-28-2023 Patient encounter procedure MD Rachel Rayo Work Phone: [facility] Work Phone: Start: 08-20-2023 Non-patient / Non-visit MD Kelly Rayo Work Phone: [facility] Work Phone: Start: 08-18-2023 End: 08-18-2023 ambulatory MD Rachel Rayo Work Phone: [facility] Work Phone: Start: 08-18-2023 End: 08-18-2023 Patient encounter procedure MD Rachel Rayo Work Phone: [facility] Work Phone: Start: 08-04-2023 End: 08-04-2023 Patient encounter procedure JESSICA PAYTON [facility] Start: 07-28-2023 End: 07-28-2023 ambulatory MD Rachel Rayo Work Phone: [facility] Work Phone: Start: 07-28-2023 End: 07-28-2023 Patient encounter procedure MD Rachel Rayo Work Phone: [facility] Work Phone: Start: 07-22-2023 End: 07-22-2023 ambulatory MD Rachel Rayo Work Phone: [facility] Work Phone: Start: 07-22-2023 End: 07-22-2023 Patient encounter procedure MD Rachel Rayo Work Phone: [facility] Work Phone: Start: 07-22-2023 End: 07-22-2023 ambulatory MD Rachel Rayo Work Phone: [facility] Work Phone: Start: 07-22-2023 End: 07-22-2023 Patient encounter procedure MD Rachel Rayo Work Phone: [facility] Start: 07-15-2023 End: 07-15-2023 Patient encounter procedure Jodie Matthews MD Work Phone: [facility] Comment on above: Intractable chronic migraine without aura and with status migrainosus (Primary Dx); Chronic migraine without aura without status migrainosus, not intractable Start: 07-08-2023 End: 07-08-2023 Pain Management Barbara Duron [facility] Start: 07-02-2023 Patient encounter status MD Frank Rayo Work Phone: [facility] Start: 07-02-2023 End: 07-02-2023 Encounter for general adult medical examination without abnormal findings MD Rachel Rayo Work Phone: [facility] Start: 07-02-2023 End: 07-02-2023 Patient encounter procedure MD Rachel Rayo Work Phone: [facility] Work Phone: Start: 06-22-2023 End: 06-22-2023 Office outpatient visit 25 minutes Rich Magana MD MPH Work Phone: [facility] Comment on above: Asthma, severe persi stent, poorly-controlled, with acute exacerbation (Primary Dx) Chronic migraine wit hout aura without status migrainosus, not intractable; Chronic migraine without aura, intractable, with status migrainosus Start: 06-05-2023 End: 06-05-2023 Patient encounter procedure Barbara Duron [facility] Start: 06-02-2023 End: 06-02-2023 ambulatory MD Rachel Rayo Work Phone: [facility] Work Phone: Start: 06-02-2023 End: 06-02-2023 Patient encounter procedure MD Rachel Rayo Work Phone: [facility] Work Phone: Start: 06-02-2023 Registered Recurring MD Rachel Rayo Work Phone: [facility] Work Phone: Start: 04-15-2023 End: 04-15-2023 Patient encounter procedure Jodie Matthews MD Work Phone: [facility] Comment on above: Chronic migraine wit hout aura, with intractable migraine, so stated, with status migrainosus (Primary Dx); Intractable chronic migraine without aura and with status migrainosus Start: 04-08-2023 End: 04-08-2023 Pain Management Barbara Duron [facility] Start: 04-08-2023 End: 04-08-2023 Office outpatient visit 25 minutes Courtney Brown MD Work Phone: [facility] Comment on above: Anti-pneumococcal po lysaccharide antibody deficiency (CMS/HCC) (Primary Dx); Asthma with chronic obstructive pulmonary disease (COPD); Fatigue, unspecified type; Vitamin D deficiency, unspecified Start: 04-06-2023 End: 04-06-2023 ambulatory Rachel Rayo Other [facility] Other Start: 04-06-2023 Telephone encounter Rachel Rayo [facility] Start: 04-03-2023 End: 04-03-2023 ambulatory Sally Eddy[place] II Other [employer] Other Start: 04-03-2023 Office outpatient vi sit 15 minutes Sally [place] II [facility] Start: 04-03-2023 End: 04-03-2023 Patient encounter procedure MD Rachel Rayo Work Phone: [facility] Work Phone: Start: 03-24-2023 End: 03-24-2023 Patient encounter procedure Jodie Matthews MD Work Phone: [facility] Comment on above: Memory loss; Intractable chronic migraine without aura and with status migrainosus Start: 02-19-2023 End: 02-19-2023 ambulatory Sally [place] II Other [facility] Other Start: 02-19-2023 Office outpatient vi sit 25 minutes Sally [place] II [facility] Start: 02-18-2023 End: 02-18-2023 ambulatory MD Rachel Rayo Work Phone: [facility] Work Phone: Start: 02-18-2023 End: 02-18-2023 Registered Recurring MD Rachel Rayo Work Phone: [facility] Work Phone: Start: 02-11-2023 Telephone encounter Rachel Rayo [facility] Start: 02-11-2023 End: 02-11-2023 Subsequent hospital visit by physician Amber Chin Echo/Vasc Room 2 [facility] Comment on above: Interstitial pulmona ry disease, unspecified (CMS/HCC); Shortness of breath Start: 02-11-2023 End: 02-11-2023 ambulatory RICH MAGANA [employer] Other Start: 02-05-2023 End: 02-05-2023 ambulatory Rachel Rayo Other [employer] Other Start: 02-05-2023 Telephone encounter Rachel Rayo [facility] Start: 01-30-2023 Chart Update Rachel Rayo Work Phone: [address] Work Phone: Start: 01-29-2023 End: 01-29-2023 ambulatory Rachel Rayo Other [employer] Other Start: 01-29-2023 Office outpatient vi sit 15 minutes Rachel Rayo [facility] Start: 01-27-[address] Rachel Rayo Facility:[facility] Start: 01-27-2023 Office outpatient vi sit 25 minutes Rachel Rayo Work Phone: [facility] Work Phone: Start: 01-20-[address] Jodie meneses [place] Facility:[id number] Start: 01-20-2023 Patient encounter procedure Rachel Rayo Work Phone: YF-Danqgqhoc-Pxrwqi 170 DO Work Phone: Start: 2023 End: 2023 Patient encounter procedure Barbara Duron [facility] Start: 2023 End: 2023 Pain Management Barbara Duron [facility] Start: 01-08-2023 End: 01-08-2023 ambulatory Rachel Rayo Other [facility] Other Start: 01-08-2023 Nursing evaluation o f patient and report Rachel Rayo [facility] Start: 01-01-2023 AUDIT Rachel Rayo Work Phone: ZO-Rgcxmykcnv-Swhicd Work Phone: Start: 12-30-2022 Patient encounter procedure Rachel Rayo Work Phone: VK-Vdrgtxqhd-Rrapao 170 DO Work Phone: Start: 12-30-[address] Jodie Matthews Facility:[id number] Start: 12-24-2022 End: 12-24-2022 Pain Management Wei Umana [facility] Start: 11-28-2022 Rx Renewal Rachel Rayo Work Phone: FQ-Wzibdwzxr-Zfjhtv 170 DO Work Phone: Start: 11-27-2022 End: 11-27-2022 Pain Management Wei Lyndsay [facility] Start: 11-18-[address] Mari Barahona ity:[id number] Start: 11-12-2022 Patient encounter procedure Rachel Rayo Work Phone: [facility] [address] [place] Work Phone: Start: 11-12-[address] Rachel Rayo Facility:[facility] Start: 11-11-2022 End: 11-11-2022 Lab Drop off JESSICA PAYTON [facility] Start: 11-11-2022 Nursing evaluation o f patient and report Rachel Rayo [facility] Start: 11-11-2022 End: 11-11-2022 Patient encounter procedure JESSICA PAYTON [facility] Start: 11-11-2022 Office outpatient vi sit 25 minutes Rachel Rayo Work Phone: -[facility] [address] [place] Work Phone: Start: 11-11-2022 End: 11-11-[address] Rachel Rayo [facility] Other Start: 11-10-2022 End: 11-10-2022 ambulatory Jessica Rodriguez Other [facility] Other Start: 11-10-2022 Office outpatient vi sit 15 minutes Jessica Rodriguez [facility] Start: 11-08-2022 AUDIT Rachel Rayo Work Phone: RU-Dadwfjozm-Hmhsww 170 DO Work Phone: Start: 11-03-[address] Jodie meneses [place] Facility:[id number] Start: 11-03-2022 Office outpatient vi sit 25 minutes Rachel Rayo Work Phone: MN-Nnlpoxcixl-Sivvwgr e 2100 DO Work Phone: Start: 10-29-2022 End: 10-29-2022 Pain Management Wei Umana [facility] Start: 10-28-2022 Patient encounter procedure Rachel Rayo Work Phone: MF-Qiovykesc-Oziapxbn Work Phone: Start: 10-28-2022 ambulatory JACLYN QUINTANA [facility] ity:[id number] Start: 10-20-2022 Patient encounter procedure Rachel Rayo Work Phone: JZ-Ocvdhdasn-Rvpoll 170 DO Work Phone: Start: 10-20-[address] Jodie Matthews Facility:[id number] Start: 09-09-[address] Courtney Hurst Facility:[id number] Start: 09-09-2022 FUV, Provider: Courtney Brown, Status: Pen, Time: 12:00 PM Rachel Rayo Work Phone: [facility] [address] [place] Work Phone: Start: 09-09-2022 Office outpatient vi sit 25 minutes Rachel Rayo Work Phone: WR-Eegnkxmrec-Onxkkkw e 2100 DO Work Phone: Start: 09-09-2022 Patient encounter procedure Rachel Rayo Work Phone: HV-Idwoexwgvu-Fvresr Work Phone: Start: 09-08-2022 Office outpatient vi sit 15 minutes Rachel Rayo Work Phone: -[facility] [address] [place] Work Phone: Start: 09-08-[address] Rich Magana Facility:[facility] Start: 09-03-[address] Jodie Matthews Facility:[id number] Start: 08-29-2022 Patient encounter procedure Rachel Rayo Work Phone: [facility] [address] [place] Work Phone: Start: 08-29-[address] Rachel Rayo Facility:[facility] Start: 08-25-2022 End: 08-25-2022 ambulatory Rachel Rayo Other [employer] Other Start: 08-25-2022 Office outpatient vi sit 15 minutes Rachel Rayo [facility] Start: 08-14-2022 ambulatory ZAINA CARUSO . Facility:H1 Start: 08-13-2022 End: 08-13-2022 ambulatory MD Rachel Rayo Work Phone: [facility] Work Phone: Start: 08-13-2022 End: 08-13-2022 Patient encounter procedure MD Rachel Rayo Work Phone: [facility] C[facility]-Lab Main [place] Work Phone: Start: 08-12-2022 End: 08-12-2022 ambulatory GELA RUFFIN Facility:[facility] Start: 08-11-2022 End: 08-12-2022 ambulatory COURTNEY BROWN Facility: Start: 08-07-2022 End: 08-07-2022 Patient encounter procedure Wei Umana [facility] Start: 08-07-2022 End: 08-07-2022 Pain Management Wei Umana [facility] Start: 08-06-2022 AUDIT Rachel Rayo Work Phone: NJ-Qqwsscbggs-Liyhvf Work Phone: Start: 08-05-2022 ambulatory JODIE BLADES Facility :H1 Start: 07-28-2022 End: 07-28-2022 ambulatory Jodie Blades Other [facility] Other Start: 07-28-2022 Telephone encounter Jodie Blades F [facility] Start: 07-28-2022 Rx Renewal Rachel Rayo Work Phone: FX-Mmdzxqlkik-SbxjoowMarques Singh DO Work Phone: Start: 07-23-2022 End: 07-23-2022 ambulatory Jodie Blades Other [facility] Other Start: 07-23-2022 Telephone encounter Jodie Blades F [facility] Start: 07-21-2022 End: 07-21-2022 ambulatory Jodie Blades Other [facility] Other Start: 07-21-2022 Telephone encounter Jodie Blades F [facility] Start: 07-20-2022 Chart Update Rachel Rayo Work Phone: IL-Qsjhecwerh-Snotcw Work Phone: Start: 07-18-2022 End: 07-18-2022 ambulatory Jodie Blades Other [facility] Other Start: 07-18-2022 Office outpatient ne w 45 minutes Jodie Blades [facility] Start: 07-17-2022 Office outpatient vi sit 25 minutes Sally Tiwari II [facility] Start: 07-17-2022 End: 07-17-2022 ambulatory Courtney Brown Facility:[id number] Start: 07-16-[address] Jodie Matthews Facility:[id number] Start: 07-14-2022 End: 07-14-2022 ambulatory MD Rachel Rayo Work Phone: [facility] Work Phone: Start: 07-14-2022 End: 07-14-2022 Patient encounter procedure MD Rachel Rayo Work Phone: [facility] Ctr-MRI Main [place] Work Phone: Start: 07-09-[address] Rich Magana Facility:[facility] Start: 07-02-2022 End: 07-02-2022 ambulatory Rachel Rayo Other [facility] Other Start: 07-02-2022 Telephone encounter Rachel Rayo [facility] Start: 07-01-2022 AUDIT Rachel Rayo Work Phone: AO-Megjderzgn-YdoasgmMarques Singh DO Work Phone: Start: 06-30-2022 End: 07-01-2022 ambulatory RICH ROONEY Facility:H1 Start: 06-25-2022 End: 06-26-2022 ambulatory COURTNEY BROWN [facility] Other Start: 06-25-2022 Nursing evaluation o f patient and report Rachel Rayo [facility] Start: 06-25-2022 Telephone encounter Rachel Rayo [facility] Start: 06-16-2022 Office outpatient vi sit 40 minutes Rachel Rayo Work Phone: TS-Jffdoxswzs-Mzfqcrn e 2100 DO Work Phone: Start: 06-16-[address] Courtney Hurst Facility:[id number] Start: 06-10-2022 End: 06-10-2022 ambulatory Sally Tiwari II Other [facility] Other Start: 06-10-2022 Telephone encounter Sally Tiwari II [facility] Start: 06-03-2022 End: 06-03-2022 ambulatory Rachel Rayo Other [employer] Other Start: 06-03-2022 Office outpatient vi sit 15 minutes Rachel Rayo [facility] Start: 06-02-2022 Office outpatient vi sit 25 minutes Rachel Rayo Work Phone: KW-Ayuqtktoh-Wajbgd 170 DO Work Phone: Start: 06-02-2022 Patient encounter procedure Rachel Rayo Work Phone: YK-Rxvnzplvv-Tjluxu 170 DO Work Phone: Start: 06-02-[address] Jodie Matthews Facility:[id number] Start: 06-02-2022 Patient encounter procedure Rachel Rayo Work Phone: [facility] [address] [place] Work Phone: Start: 06-02-2022 ambulatory Ms. Cole Lazargabriel Facil ity:[facility] Start: 05-27-2022 Chart Update Rachel Rayo Work Phone: BZ-Qusudeuxrwkkhpph-J [place] SJW 450 DO Work Phone: Start: 05-26-2022 End: 05-27-2022 ambulatory COURTNEY BROWN Facility:H1 Start: 05-22-2022 End: 05-22-2022 Patient encounter procedure MD Rachel Rayo Work Phone: [facility] Start: 05-22-2022 End: 05-22-2022 ambulatory MD Rachel Rayo Work Phone: [facility] Work Phone: Start: 05-22-2022 Office outpatient vi sit 25 minutes Sally Tiwari II [facility] Start: 05-19-2022 End: 05-20-[address] ELIZABETH CHAUDHRY . Facility:H1 Start: 05-19-2022 End: 05-19-2022 Patient encounter procedure Elizabeth CHAUDHRY [facility] Start: 05-16-2022 End: 05-16-2022 ambulatory MD Rachel Rayo Work Phone: [facility] Work Phone: Start: 05-16-2022 End: 05-16-2022 Registered Recurring MD Rachel Rayo Work Phone: [facility] Work Phone: Start: 05-15-2022 End: 05-16-[address] LYNETTE JIMÉNEZ . Facility:H1 Start: 05-12-2022 Rx Renewal Rachel Rayo Work Phone: MV-Ynypulrmq-Sulypi 170 DO Work Phone: Start: 05-12-2022 End: 05-12-[address] Rachel Rayo Facility:[id number] Start: 05-07-[address] LYNETTE JIMÉNEZ . Faci lity:H1 Start: 05-02-2022 Chart Update Rachel Rayo Work Phone: [facility] [address] [place] Work Phone: Start: 05-01-2022 Adult health examination Annie Rayo Other [facility] Other Start: 05-01-2022 Pre-procedure evalua tion check Rachel Rayo Other [employer] Other Start: 05-01-[address] Rich Magana Facility:[id number] Start: 04-24-2022 Rx Renewal Rachel Rayo Work Phone: MY-Taujjuapt-Rxnqq 204 Work Phone: Start: 04-16-2022 BOTOX, Provider: Jodie Matthews, Status: Pen, Time: 2:30 PM Rachel Rayo Work Phone: [facility] [address] [place] Work Phone: Start: 04-16-[address] Jodie Matthews Facility:[id number] Start: 04-16-2022 End: 04-16-2022 Emergency department patient visit MD Rachel Rayo Work Phone: [facility]-Emergency Room Start: 04-15-2022 Office outpatient vi sit 25 minutes Rachel Rayo Work Phone: [facility] [address] [place] Work Phone: Start: 04-15-[address] Rich Magana Facility:[facility] Start: 04-14-[address] Courtney Hurst Facility:[id number] Start: 04-11-2022 Registered Recurring MD Rachel Rayo Work Phone: [facility] Start: 04-10-2022 End: 04-10-2022 ambulatory Sally Tiwari II Other [facility] Other Start: 04-10-2022 Office outpatient vi sit 25 minutes Sally Tiwari II [facility] Start: 04-05-2022 End: 04-05-2022 Emergency department patient visit MD Rachel Rayo Work Phone: [facility]Emergency Room Start: 04-03-2022 Registered Recurring MD Rachel Rayo Work Phone: [facility] Start: 04-03-2022 AUDIT Rachel Rayo Work Phone: BF-Jsbxxjgzdguxvqwi-R [place] SJW 450 DO Work Phone: Start: 04-02-2022 End: 04-02-2022 ambulatory COURTNEY BROWN Facility:H1 Start: 03-28-2022 End: 03-28-2022 ambulatory RAFY MENG Facility:H1 Start: 03-18-2022 End: 03-18-2022 ambulatory MD Rachel Rayo Work Phone: [facility] Work Phone: Start: 03-18-2022 End: 03-18-2022 Registered Recurring MD Rachel Rayo [facility] Start: 03-17-2022 Rx Renewal Rachel Rayo Work Phone: KZ-Pcrzistai-Dckoba 170 DO Work Phone: Start: 03-10-2022 Rx Renewal Rachel Rayo Work Phone: US-Ibykzeoxx-Kyzxyb 170 DO Work Phone: Start: 03-07-2022 End: 03-08-2022 ambulatory COURTNEY BROWN Facility:H1 Start: 03-04-2022 ASUNCION Rayo Work Phone: OQ-Jdwysoqhyq-Pkpphl Work Phone: Start: 02-28-2022 End: 03-01-2022 ambulatory COURTNEY BROWN Facility:H1 Start: 02-28-2022 AUDIT Rachel Rayo Work Phone: YH-Hyydqkcbhn-Zdpnqer e 2100 DO Work Phone: Start: 02-26-[address] Jodie Matthews Facility:[id number] Start: 02-26-2022 [facility], Provider : Jodie Matthews, Status: Pen, Time: 9:30 AM Rachel Rayo Work Phone: FY-Mapbmnlmuy-Vlovpur e 2100 DO Work Phone: Start: 02-26-2022 Office outpatient vi sit 15 minutes Rachel E Rayo Work Phone: TF-Dihxuabot-Uhcvtc 170 DO Work Phone: Start: 02-24-2022 Office outpatient vi sit 40 minutes Rachel Rayo Work Phone: NT-Oglxukqadw-Wwxleul e 2100 DO Work Phone: Start: 02-24-[address] Courtney Hurst Facility:[id number] Start: 02-21-2022 Rx Renewal Rachel Rayo Work Phone: KD-Lrmxagxpg-Hrxadaj 5th Work Phone: Start: 02-18-2022 End: 02-19-[address] LYNETTE JIMÉNEZ . Facility:H1 Start: 02-14-2022 End: 02-15-[address] LYNETTE BURNS Facility:H1 Start: 02-12-2022 AUDIT Rachel Rayo Work Phone: SU-Hywdmliyud-Pkkmjc Work Phone: Start: 02-12-2022 Office outpatient vi sit 25 minutes Rachel Rayo Work Phone: [facility] [address] [place] Work Phone: Start: 02-12-[address] Rich Magana Facility:[facility] Start: 01-23-2022 End: 01-23-2022 ambulatory Sally Tiwari II Other [facility] Other Start: 01-23-2022 Office outpatient ne w 45 minutes Sally Tiwari II [facility] Start: 01-23-2022 End: 01-23-2022 Patient encounter procedure MD Rachel Rayo Work Phone: [facility] Start: 01-15-2022 BOTOX, Provider: Jodie Matthews, Status: Pen, Time: 2:00 PM Rachel Rayo Work Phone: JQ-Bfcgobhlcr-Dfgoymv e 2100 DO Work Phone: Start: 01-15-2022 Patient encounter procedure Rachel Rayo Work Phone: ON-Uwxjqvddz-Hzrfwv 170 DO Work Phone: Start: 01-14-2022 End: 01-14-2022 Registered Recurring MD Rachel Rayo Work Phone: [facility] Start: 01-13-2022 AUDIT Rachel Rayo Work Phone: IV-Dpfrylrtig-Wiwrbbq e 2100 DO Work Phone: Start: 01-08-2022 AUDIT Rachel Rayo Work Phone: HH-Cbjzwfgyy-Wgyufs 170 DO Work Phone: Start: 01-08-2022 End: 01-09-2022 ambulatory GELA RUFFIN Facility:[facility] Start: 01-02-2022 NPV, Provider: Fernando Rivera, Status: Pen, Time: 1:00 PM Rachel Rayo Work Phone: LK-Ovzdtgdhbx-Vyokzlv e 2100 DO Work Phone: Start: 12-31-2021 AUDIT Rachel Rayo Work Phone: JB-Jbwkfoyeca-Nuctkiy e 2100 DO Work Phone: Start: 12-17-2021 [...] Start: 12-02-2021 AUDIT Rachel Rayo Work Phone: BA-Mctwgsxgip-Wyphvcx e 2100 DO Work Phone: Start: 11-30-2021 Chart Update Rachel Rayo Work Phone: OA-Rwlgwhugxf-Ydikxqv e 2100 DO Work Phone: Start: 11-27-2021 End: 11-28-2021 ambulatory RAFY MENG Facility:H1 Start: 11-27-2021 End: 11-28-2021 ambulatory BETH ISABEL . Facility:H1 Start: 11-06-2021 Office outpatient vi sit 25 minutes Rachel Rayo Work Phone: UW-Gsyaqzexq-Kreogq 170 DO Work Phone: Start: 10-29-2021 Rx Renewal Rachel Rayo Work Phone: [facility] [address] [place] Work Phone: Start: 10-25-2021 AUDIT Rachel Rayo Work Phone: UQ-Fdiaflmpf-Paogker 5th Work Phone: Start: 10-24-2021 AUTONOMIC, Provider: AUTO-CHAGRIN,NEURODIAG, Status: Pen, Time: 9:00 AM Rachel Rayo Work Phone: LP-Hptwyqyxhz-Vmzpbmv e 2100 DO Work Phone: Start: 10-22-2021 Patient encounter procedure Rachel Rayo Work Phone: HV-Grsaxhddky-Zgkmdfm e 2100 DO Work Phone: Start: 10-07-2021 End: 10-08-[address] RACHEL RAYO Facility:H1 Start: 10-02-2021 Telephone encounter Rachel laird Work Phone: UP-Kgzooebyi-Qgwhtp 170 DO Work Phone: Start: 09-23-2021 Chart Update Rachel Rayo Work Phone: KM-Ofmcbrdgni-Povxucj e 2100 DO Work Phone: Start: 09-19-2021 End: 09-19-2021 ambulatory COURTNEY BROWN Facility:H1 Start: 09-16-2021 Rx Change Rachel Rayo Work Phone: [facility] [address] [place] Work Phone: Start: 09-16-2021 Patient encounter procedure Rachel Rayo Work Phone: XX-Jtcyhthas-Eknksy 170 DO Work Phone: Start: 09-16-2021 Office outpatient vi sit 25 minutes Rachel Rayo Work Phone: [facility] [address] [place] Work Phone: Start: 09-13-[address] RACEHL RAYO Facil ity:H1 Start: 09-12-2021 Rx Renewal Rachel Rayo Work Phone: EL-Kmcfpfekb-Ggyfgs 170 DO Work Phone: Start: 09-12-2021 End: 09-13-[address] RACHEL RAYO Facility:H1 Start: 09-12-2021 AUTONOMIC, Provider: AUTO-CHAGTRAVONNEURODIAG, Status: Pen, Time: 1:00 PM Rachel Rayo Work Phone: OX-Dyscypvzjn-Fzfthnn e 2100 DO Work Phone: Start: 09-10-2021 AUDIT Rachel Rayo Work Phone: FI-Yfgldckmgz-Suravwk e 2100 DO Work Phone: Start: 09-02-2021 Patient encounter procedure Rachel Rayo Work Phone: MG-Pulm Sleep-[place] [address] [place] Work Phone: Start: 08-22-2021 Office outpatient vi sit 40 minutes Rachel Rayo Work Phone: UJ-Nedxqxlzw-Dmlego 170 DO Work Phone: Start: 08-22-2021 [facility] : Jodie Matthews, Status: Pen, Time: 2:00 PM Rachel Rayo Work Phone: KZ-Ybklfsska-Stsjrc 170 DO Work Phone: Start: 08-21-2021 Office outpatient vi sit 5 minutes Rachel Rayo Work Phone: OD-Khhxzmavo-Iwehxq 170 DO Work Phone: Start: 08-14-2021 STRESS NUC, [facility],[id number], Status: Pen, Time: 7:30 AM Rachel Rayo Work Phone: WA-Vfeyqygcgv-Nldsqxe e 2100 DO Work Phone: Start: 08-13-2021 Office outpatient vi sit 25 minutes Rachel Rayo Work Phone: FD-Kqjjoyifky-Phrvrc Work Phone: Start: 08-13-2021 Patient encounter procedure Rachel Rayo Work Phone: ZS-Pvrrpvfbyn-Wsplsos e 2100 DO Work Phone: Start: 08-07-2021 AUDIT Rachel Rayo Work Phone: MY-Vjpmywdgj-Rzohac 170 DO Work Phone: Start: 08-05-2021 Message Rachel Rayo Work Phone: [facility] 250 DO Work Phone: Start: 07-29-2021 End: 07-30-2021 Evaluation and management of inpatient MD Rachel Rayo Work Phone: [facility] Ctr-[facility] [place] [facility] Start: 07-23-2021 Rx Renewal Rachel Rayo Work Phone: [facility] [address] [place] Work Phone: Start: 06-21-2021 Chart Update Rachel Rayo Work Phone: TZ-Xiqsaughia-Plsukki e 2100 DO Work Phone: Start: 06-19-2021 BOTOX, Provider: Jodie Matthews, Status: Pen, Time: 1:00 PM Rachel Rayo Work Phone: PM-Eelrufijak-Mpfhxlf e 2100 DO Work Phone: Start: 06-19-2021 Chart Update Rachel Rayo Work Phone: VG-Vhvtndpfyc-Imnypp Work Phone: Start: 06-18-2021 FUV, Provider: Courtney Brown, Status: Pen, Time: 10:45 AM Rachel Rayo Work Phone: FC-Hvmaiicpqs-Uxwhjzd e 2100 DO Work Phone: Start: 06-18-2021 Office outpatient vi sit 25 minutes Rachel Rayo Work Phone: UY-Amvifznqgs-Oabwers e 2100 DO Work Phone: Start: 06-17-2021 Rx Renewal Rachel Rayo Work Phone: DV-Bkmfmtrlhp-Hcctyug e 2100 DO Work Phone: Start: 06-12-2021 [...] Time: 11:45 AM Rachel Rayo Work Phone: [facility] [address] [place] Work Phone: Start: 06-03-2021 Patient encounter procedure Racheldario Rayo Work Phone: [facility] [address] [place] Work Phone: Start: 05-22-2021 Rx Renewal Rachel Rayo Work Phone: GA-Ofrdgzlsdm-Eoqrwb Work Phone: Start: 05-16-2021 FUVGENERAL, Provider : Mathew Miller, Status: Pen, Time: 9:30 AM Rachel Rayo Work Phone: TJ-Mptwdvveu-Wlzdgmd 3300A Work Phone: Start: 05-16-2021 Office outpatient vi sit 40 minutes Rachel Rayo Work Phone: VD-Pfrmckzvd-Gpqfc 204 Work Phone: Start: 05-15-2021 ENG, Provider: Marina Alcantar, Status: Pen, Time: 8:30 AM Rachel Rayo Work Phone: TH-Tsfyscgzxm-Gmxiosy e 2100 DO Work Phone: Start: 05-15-2021 Follow-up encounter Rachel laird Work Phone: CN-Srlkqylyh-Tbqzijk 3300A Work Phone: Start: 05-13-2021 Patient encounter procedure Rachel Rayo Work Phone: HU-Fkgroimblz-Zqdqswt e 2100 DO Work Phone: Start: 05-07-2021 Office outpatient vi sit 25 minutes Rachel Rayo Work Phone: [facility] [address] [place] Work Phone: Start: 05-02-2021 ENG, Provider: Marina Alcantar, Status: Pen, Time: 10:00 AM Rachel Rayo Work Phone: [facility] A2470 DO Work Phone: Start: 04-22-2021 AUDIT Rachel Rayo Work Phone: WJ-Muuljupkwv-Sjnphjc e 2100 DO Work Phone: Start: 04-19-2021 Follow-up encounter Rachel laird Work Phone: [facility] Bldg 2 290 Work Phone: Start: 04-10-2021 Patient encounter procedure Rachel Rayo Work Phone: GH-Cvquqexom-Dspnhb 170 DO Work Phone: Start: 04-01-2021 Office outpatient vi sit 40 minutes Rachel Rayo Work Phone: KV-Xxfvslmczf-Ccffiq Work Phone: Start: 04-01-2021 Office consultation new/estab patient 60 min Rachel Rayo Work Phone: [facility] A2470 DO Work Phone: Start: 04-01-2021 Patient encounter procedure Rachel Rayo Work Phone: [facility] A2470 DO Work Phone: Start: 03-22-2021 Rx Renewal Rachel Rayo Work Phone: SX-Boxqxvyvo-Vqpwos 170 DO Work Phone: Start: 03-20-2021 FUV, Provider: Rich Magana, Status: Pen, Time: 10:45 AM Rachel Rayo Work Phone: AD-Peywvuvwn-Zmxiym 170 DO Work Phone: Start: 03-20-2021 NPV, Provider: Jaci Solano, Status: Pen, Time: 8:00 AM Rachel Rayo Work Phone: HC-Zfryrxetyw-Jtyikzy e 2100 DO Work Phone: Start: 03-18-2021 Rx Renewal Rachel E Rayo Work Phone: JZ-Vadujhlyf-Pkcukd 170 DO Work Phone: Start: 03-15-2021 Patient encounter procedure Rachel E Rayo Work Phone: PY-Fdqupwncsj-Bffncej e 2100 DO Work Phone: Start: 03-04-2021 Chart Update Rachel E Rayo Work Phone: GV-Mpjwpucdv-Wyxxb 204 Work Phone: Start: 02-21-2021 Patient encounter procedure Rachel E Rayo Work Phone: NN-Ftpwrasnl-Onfisz 170 DO Work Phone: Start: 02-06-2021 Rx Renewal Rachel E Rayo Work Phone: WZ-Thsttxmnyr-Jbqzfow e 2100 DO Work Phone: Start: 02-05-2021 Office outpatient vi sit 25 minutes Rachel Rayo Work Phone: CR-Myhgboxhw-Xvwzs 204 Work Phone: Start: 01-28-2021 Patient encounter procedure Rachel E Rayo Work Phone: VW-Kjxowghtnp-Ousbmkl e 2100 DO Work Phone: Start: 01-25-2021 Chart Update Rachel E Rayo Work Phone: PR-Uzbdyimvfu-Kkzskkz e 2100 DO Work Phone: Start: 01-03-2021 Rx Renewal Rachel E Rayo Work Phone: MQ-Gfjpmkcsx-Irahcj 170 DO Work Phone: Start: 01-02-2021 Office consultation new/estab patient 60 min [facility] Ray[facility] [place] Work Phone: Start: 12-31-2020 Rx Renewal Rachel Rayo Work Phone: SM-Ixixyrdpu-Yaomoye 5th Work Phone: Start: 12-24-2020 Rx Renewal Rachel Rayo Work Phone: DV-Uhgbebockl-Figgpqm e 2100 DO Work Phone: Start: 12-12-2020 Office outpatient vi sit 5 minutes Rachel Rayo Work Phone: IH-Esmkrxcbm-Xvrnyj 170 DO Work Phone: Start: 12-11-2020 Chart Update Rachel Rayo Work Phone: JT-Elpfakaeab-Xlycnap e 2100 DO Work Phone: Start: 12-10-2020 Pt-focused hlth risk assmt score doc stnd instrm Rachel Rayo Work Phone: TA-Hmkwvquamh-Jnljybp e 2100 DO Work Phone: Start: 12-07-2020 Chart Update Rachel Rayo Work Phone: [facility] [address] [place] Work Phone: Start: 12-06-2020 Current tobacco non- user cad cap copd pv dm Rachel Rayo Work Phone: [facility] 130 [place] Work Phone: Start: 12-03-2020 Chart Update Rachel Rayo Work Phone: AC-Abhaageima-Ckwnird e 2100 DO Work Phone: Start: 12-03-2020 Chart Update Rachel Rayo Work Phone: WX-Peexugzwao-Mefnrtn e 2100 DO Work Phone: Start: 11-27-2020 Chart Update Rachel English Perri Work Phone: FQ-Cbnrdzjbmc-Tbpsdmn e 2100 DO Work Phone: Start: 11-27-2020 AUDIT Rachel English Perri Work Phone: TV-Nxwprasgoq-Gckucxz e 2100 DO Work Phone: Start: 11-26-2020 Office outpatient vi sit 25 minutes Rachel Rayo Work Phone: [facility] Work Phone: Start: 11-26-2020 Patient encounter procedure Rachel English Perri Work Phone: RJ-Xlqathtrfr-Nucjxxo e 2100 DO Work Phone: Start: 11-22-2020 Patient encounter procedure Rachel English Perri Work Phone: DM-Qstndedsx-Blypdh 170 DO Work Phone: Start: 11-02-2020 Image Encounter Rachel English Perri Work Phone: RV-Xcjclprcqa-Xglrjpz e 2100 DO Work Phone: Start: 11-02-2020 AUDIT Rachel English Perri Work Phone: QE-Hrzamkxqnm-Atnrmsk e 2100 DO Work Phone: Start: 10-30-2020 Patient encounter procedure Rachel English Perri Work Phone: BC-Cqlyzuxzxj-Klwhski e 2100 DO Work Phone: Start: 10-17-2020 AUDIT Rachel English Perri Work Phone: YG-Cfeavibxz-Pxuaju 170 DO Work Phone: Start: 10-15-2020 AUDIT Racheldario Rayo Work Phone: PD-Yuvjrawaez-Euwpaei e 2100 DO Work Phone: Start: 10-03-2020 Office outpatient vi sit 5 minutes Rachel Rayo Work Phone: YI-Asngbvugc-Qjvbyl 170 DO Work Phone: Start: 10-02-2020 Rx Renewal Rachel Rayo Work Phone: YQ-Exfcwonrq-Noipwt 170 DO Work Phone: Start: 09-25-2020 AUDIT Rachel Rayo Work Phone: BW-Bqcucorlom-Unrsxdj e 2100 DO Work Phone: Start: 09-19-2020 Patient encounter procedure Courtney Brown MD LC-Ejqcyvkfk-Qicigr 170 DO Work Phone: Start: 09-08-2020 End: 09-08-2020 Emergency department patient visit Jarret Tong MD Work Phone: [facility] Emergency Dept Comment on above: COPD exacerbation (H CC) (Primary Dx) Start: 09-05-2020 Patient encounter procedure Courtney Brown MD QW-Hgvuuwiqx-Wdxbrg 170 DO Work Phone: Start: 09-03-2020 Patient encounter procedure Courtney Brown MD SJ-Xanrbxbho-Nictiw 170 DO Work Phone: Start: 08-30-2020 Patient encounter procedure Courtney Brown MD NC-Ejrtilsmj-Ftqubm 170 DO Work Phone: Start: 08-29-2020 Patient encounter procedure Courtney Brown MD NR-Qpjqaundz-Vurhib 170 DO Work Phone: Start: 08-25-2020 End: 08-25-2020 Emergency department patient visit Felisha Rader MD Work Phone: [facility] Emergency Dept Comment on above: Pneumonia of both anel ngs due to infectious organism, unspecified part of lung (Primary Dx) Start: 07-12-2020 Patient encounter procedure Courtney Brown MD KQ-Viazcexvc-Pbogaj 170 DO Work Phone: Start: 07-09-2020 Patient encounter procedure Courtney Brown MD FU-Ahbkmtckv-Wigxsw 170 DO Work Phone: Start: 07-03-2020 Patient encounter procedure Courtney Brown MD SN-Ovopuiazr-Kejmor 170 DO Work Phone: Start: 05-17-2020 Patient encounter procedure Courtney Brown MD XK-Tlzokqhqd-Osozjz 170 DO Work Phone: Start: 05-08-2020 Patient encounter procedure Courtney HerzogStephanie MP-[facility] Work Phone: Start: 03-13-2020 Patient encounter procedure Courtney Reyesrias -[facility] Work Phone: Start: 02-28-2020 Patient encounter procedure Courtney Brown -[facility] Work Phone: Start: 02-23-2020 Patient encounter procedure Courtney Brown -[facility] Work Phone: Start: 02-14-2020 Patient encounter procedure Courtney Brown MPZC-Ooubxxivhg-Atrarwe Work Phone: Start: 12-08-2019 End: 12-08-2019 Subsequent hospital visit by physician Tuan Covid Screening Schedule [facility] Covid Screening Comment on above: Chronic obstructive pulmonary disease, unspecified COPD type (HCC) Start: 11-23-2019 Patient encounter procedure Courtney Randallas OI-Fcypwxsyb-Cmbedh 170 DO Work Phone: Start: 11-15-2019 Patient encounter procedure Courtney HerzogStephanie SP-Nhjojshty-Wkfhoo 170 DO Work Phone: Start: 11-07-2019 Patient encounter procedure Courtney Randallas CZ-Zlnrimfne-Vzolvi 170 DO Work Phone: Start: 09-13-2019 Patient encounter procedure Courtney Randallas UT-Thtiqvkiz-Uebojz 170 DO Work Phone: Start: 07-25-2019 Patient encounter procedure Courtney Stephanie XU-Yqsknqgtf-Ymoxyf 170 DO Work Phone: Start: 07-22-2019 End: 07-22-2019 Subsequent hospital visit by physician [facility]i [facility] Comment on above: Canceled (Patient) Start: 07-15-2019 End: 07-17-2019 Subsequent hospital visit by physician Chris Wing Dr Room 2 [facility] Radiology Comment on above: Recurrent aspiration pneumonia (HCC) Start: 07-15-2019 End: 07-17-2019 Subsequent hospital visit by physician Jacki [facility] Comment on above: Arrived Start: 06-20-2019 End: 06-20-2019 Subsequent hospital visit by physician Jacki Rooney [facility] Comment on above: Arrived Start: 06-13-2019 End: 06-13-2019 Subsequent hospital visit by physician Jacki Rooney [facility] Comment on above: Arrived Start: 06-07-2019 End: 06-07-2019 Subsequent hospital visit by physician Jacki Rooney [facility] Comment on above: Arrived Start: 05-31-2019 End: 05-31-2019 Subsequent hospital visit by physician Jacki MARTINEZ [facility] Speech Therapy Comment on above: Arrived Start: 05-24-2019 Patient encounter procedure Courtney Brown MPCR-Xzdxbspwok-Eazhuny e Work Phone: Start: 05-16-2019 End: 05-18-2019 Subsequent hospital visit by physician Chris Salcido Radiologist [facility] Radiology Comment on above: Pneumonia of right u pper lobe due to infectious organism (HCC); Recurrent aspiration pneumonia (HCC) Start: 04-19-2019 End: 04-19-2019 Subsequent hospital visit by physician Chris Room [facility] PFT Comment on above: Severe persistent as thma without complication Start: 04-06-2019 End: 04-08-2019 Subsequent hospital visit by physician Chris Cat Scan Room [facility] Laboratory Comment on above: Dyslipidemia Pneumonia of right m iddle lobe due to infectious organism (HCC) Start: 04-01-2019 End: 04-01-2019 Patient encounter procedure DAYTON FULTON [facility] Start: 04-01-2019 End: 04-01-2019 Subsequent hospital visit by physician Dayton Fulton Work Phone: [facility] End[facility] Start: 03-25-2019 End: 03-25-2019 Subsequent hospital visit by physician Chris Lab Drawing Room [facility] Laboratory Comment on above: Pneumonia of right m iddle lobe due to infectious organism (HCC) Start: 03-24-2019 End: 03-24-2019 Subsequent hospital visit by physician Oni Gr [facility] Laboratory Start: 03-22-2019 End: 03-24-2019 Subsequent hospital visit by physician Chris Wing Dr Room 2 [facility] Radiology Comment on above: Pneumonia of right m iddle lobe due to infectious organism (HCC) Intractable migraine without aura and without status migrainosus Start: 03-04-2019 Patient encounter procedure [employer]ERGY [employer] DIV[employer] OFFICER Lucero english Work Phone: Start: 01-20-2019 End: 01-20-2019 Subsequent hospital visit by physician Wei Aguirre [facility] Physical Therapy Comment on above: Canceled (Patient co ndition) Start: 01-17-2019 End: 01-17-2019 Subsequent hospital visit by physician Wei Aguirre [facility] Physical Therapy Start: 01-14-2019 Patient encounter procedure Courtney SHARPENeurology-[place] 204 Work Phone: Start: 01-12-2019 End: 01-12-2019 Subsequent hospital visit by physician Kodi Mancia [facility] Physical Therapy Start: 01-12-2019 End: 01-14-2019 Subsequent hospital visit by physician Chris Wing Dr Room 2 [facility] Radiology Comment on above: Cough Start: 12-26-2018 End: 12-26-2018 Emergency department patient visit [facility] ED Comment on above: Acute bronchitis, un specified organism (Primary Dx); COPD exacerbation (HCC) Start: 12-21-2018 End: 12-23-2018 Subsequent hospital visit by physician Chris Arzate Drawing Room [facility] Laboratory Comment on above: Lymphadenopathy, ing uinal Start: 12-17-2018 End: 12-17-2018 Subsequent hospital visit by physician Kodi Mancia [facility] Physical Therapy Comment on above: Arrived Start: 12-15-2018 End: 12-15-2018 Subsequent hospital visit by physician Kaya Cancino [facility] Physical Therapy Start: 12-14-2018 End: 12-14-2018 Subsequent hospital visit by physician Kodi Mancia [facility] Physical Therapy Comment on above: Arrived Start: 12-10-2018 End: 12-10-2018 Subsequent hospital visit by physician Kaya Cancino [facility] Physical Therapy Comment on above: Arrived Start: 12-08-2018 End: 12-08-2018 Subsequent hospital visit by physician Kodi Mancia [facility] Physical Therapy Start: 11-09-2018 Patient encounter procedure Courtney Brown MPKI-Ewthctftg-Qrniz 204 Work Phone: Start: 10-11-2018 Patient encounter procedure Courtney Brown BR-Nwfeqobub-Kuavq 204 Work Phone: Start: 09-07-2018 Patient encounter procedure Courtney Brown MPEP-Erxnvxkeld-Ctdfwa Work Phone: Start: 08-18-2018 Patient encounter procedure Courtney Brown AO-Qgpzvkokg-Ywluc 204 Work Phone: Start: 08-02-2018 Patient encounter procedure Courtney Brown CP-Bkvpomktqb-Jfxsos Work Phone: Start: 07-23-2018 Patient encounter procedure Courtney Brown UY-Jwqsjyfdmu-Hjxach Work Phone: Start: 07-13-2018 Patient encounter procedure Courtney Brown MH-Jiwxkbmdfd-Gefkdb Work Phone: Start: 06-23-2018 Patient encounter procedure Courtney Brown AS-Ohlmyyhrhv-Eogxjo Work Phone: Start: 05-13-2018 Patient encounter procedure Courtney Brown ZS-Vppvbopocr-Wsmfld Work Phone: Start: 05-12-2018 Patient encounter procedure Courtney Brown VT-Pocxabzyvj-Orlvvy Work Phone: Start: 05-11-2018 Patient encounter procedure Courtney Brown ZG-Baghmjxeux-Jomibz Work Phone: Start: 05-07-2018 Patient encounter procedure Courtney Brown VH-Edrveyvfkk-Iqvpaj Work Phone: Start: 04-26-2018 End: 04-28-2018 Evaluation and management of inpatient [place] Facility:[facility] Start: 04-21-2018 Patient encounter procedure Courtney Brown DR-Trvictvfmy-Wabkah Work Phone: Start: 04-08-2018 Patient encounter procedure Courtney Brown UP-Fbujdjwycp-Lkenwe Work Phone: Start: 03-19-2018 Patient encounter procedure Courtney Brown MPFK-Bgkugkgoxf-Oxbqzk Work Phone: Start: 03-16-2018 Patient encounter procedure Courtney Brown MPYV-Afyzprnmys-Tlvosy Work Phone: Start: 03-09-2018 Patient encounter procedure Courtney Brown MPYQ-Vcocmfqoty-Jobnvw Work Phone: Start: 03-03-2018 Patient encounter procedure Courtney Brown MPJF-Fnowkurlui-Lldbmb Work Phone: Start: 03-01-2018 Patient encounter procedure Courtney Brown EU-Qpradpjfiz-Xqkexm Work Phone: Start: 02-24-2018 Patient encounter procedure Courtney Brown MPCQ-Uoxssvdicj-Xoezho Work Phone: Start: 02-10-2018 Patient encounter procedure Courtney Brown MPVE-Xkxpmlljqn-Zmcfsa Work Phone: Start: 01-27-2018 Patient encounter procedure Courtney Brown MPLR-Cxbayryxqi-Awcdgx Work Phone: Start: 01-11-2018 Patient encounter procedure Courtney Brown MPFH-Akcuwaorkm-Snfpie Work Phone: Start: 12-29-2017 Patient encounter procedure Courtney Brown MPUW-Mjqkxoklcu-Jxfuxz Work Phone: Start: 12-23-2017 Patient encounter procedure Courtney Brown MPYG-Xrqqqllfwk-Jhfbxq Work Phone: Start: 11-30-2017 Patient encounter procedure Courtney Brown MPRX-Fcxiqcvude-Wkeqdj Work Phone: Start: 11-17-2017 Patient encounter procedure Courtney Brown MPOA-Ugctppbzng-Kavgzh Work Phone: Start: 11-12-2017 Patient encounter procedure Courtney Brown MPDR-Hkckxoxwox-Dvygxk Work Phone: Start: 11-10-2017 Patient encounter procedure Courtney Brown MPMG-Eajqecuqoi-Ohqrzu Work Phone: Start: 11-06-2017 Patient encounter procedure Courtney Brown MPGX-Efmfrqcqvn-Xdbmrf Work Phone: Start: 11-02-2017 Patient encounter procedure Courtney Brown VQ-Lturdizbyp-Itukzy Work Phone: Start: 10-22-2017 Patient encounter procedure Courtney Brown MPAU-Dfszwbzoks-Vbnpez Work Phone: Start: 10-14-2017 Patient encounter procedure Courtney Brown ON-Vfudflswkk-Vmrunu Work Phone: Start: 10-07-2017 Patient encounter procedure Courtney Brown GB-Zrtyndbaol-Vjnfaf Work Phone: Start: 09-22-2017 Patient encounter procedure Courtney Brown JL-Cqzfddkwrm-Cicptk Work Phone: Start: 09-09-2017 Patient encounter procedure Courtney Brown ZO-Uqtvqmbrzu-Qkufve Work Phone: Start: 08-26-2017 Patient encounter procedure Courtney Brown UE-Wkkcjatehe-Jndthx Work Phone: Start: 08-25-2017 Patient encounter procedure Courtney Brown VD-Ojqjrsnavf-Lpyhsz Work Phone: Start: 08-19-2017 Patient encounter procedure Courtney Brown EK-Ajjzfxglth-Wnusmv Work Phone: Start: 08-04-2017 Patient encounter procedure Courtney Brown RA-Cwzmdmefgl-Ezpbnn Work Phone: Start: 07-28-2017 Patient encounter procedure Courtney Brown OP-Iarxklrbie-Aukdjv Work Phone: Start: 07-07-2017 Patient encounter procedure Courtney Brown XR-Wwantjtvbl-Ffdapp Work Phone: Start: 07-03-2017 Patient encounter procedure Courtney Brown JJ-Zzkhqufsbn-Agsywu Work Phone: Start: 06-23-2017 Patient encounter procedure Courtney Brown QA-Qtkpqbxppn-Kdpmqc Work Phone: Start: 06-11-2017 Patient encounter procedure Courtney Brown MPZT-Ieembqkrkw-Qdzzfg Work Phone: Start: 06-09-2017 Patient encounter procedure Courtney Stephanie OP-Jcyuslrejm-Eeyoji Work Phone: Start: 05-28-2017 Patient encounter procedure Courtney Brown MPAV-Naiqxczdyc-Vowuut Work Phone: Start: 05-11-2017 Ambulatory [facility] Miscellaneous Facili ty:[facility] Start: 05-09-2017 End: 05-13-2017 Evaluation and management of inpatient Mathew Miller Facility:[facility] Start: 05-07-2017 Patient encounter procedure Courtney Brown MPZT-Vdqbwnffgc-Nsthdm Work Phone: Start: 05-06-2017 Patient encounter procedure Courtney Brown MPYC-Wnbtziognq-Juuqew Work Phone: Start: 04-30-2017 Patient encounter procedure Courtney Brown MPCG-Eksytylhpc-Zafjwx Work Phone: Start: 04-17-2017 Patient encounter procedure Courtney Brown MPPW-Kvmytfyoxh-Mugseq Work Phone: Start: 04-02-2017 Patient encounter procedure Courtney Randallas LA-Snjyizjvlx-Jewygo Work Phone: Start: 03-31-2017 Patient encounter procedure Courtney Brown MPDC-Gqrziycxjh-Ygnqca Work Phone: Start: 03-11-2017 Patient encounter procedure Courtney Brown MPAD-Hbdjmenksi-Hwlzlu Work Phone: Start: 02-25-2017 Patient encounter procedure Courtney Brown MPKF-Bxmzyiefzk-Ysbvve Work Phone: Start: 02-10-2017 Patient encounter procedure Courtney Brown MPVG-Vskfctgoxa-Ikxfgy Work Phone: Start: 01-28-2017 Patient encounter procedure Courtney Brown MPVN-Afccghxzmh-Ecpmbd Work Phone: Start: 01-20-2017 Patient encounter procedure Courtney Brown MPPN-Zswujpsoqf-Sgxujq Work Phone: Start: 2017 Patient encounter procedure Courtney Brown MPXC-Qdrfcdphcy-Pjyjok Work Phone: Start: 01-07-2017 Patient encounter procedure Courtney Brown MPGR-Eeaojvaxga-Piltxw Work Phone: Start: 12-31-2016 Patient encounter procedure Courtney Brown MPET-Wxzcvpslad-Razezx Work Phone: Start: 12-16-2016 Patient encounter procedure Courtney Brown MPOJ-Kucvobekaj-Tffdcc Work Phone: Start: 11-18-2016 Patient encounter procedure Courtney Brown MPLC-Epyiydllgm-Igwnou Work Phone: Start: 10-21-2016 Patient encounter procedure Courtney Brown MPGL-Zpwyylqnql-Afbrje Work Phone: Start: 10-15-2016 Patient encounter procedure Courtney Brown MPBS-Khmgfateag-Wjlisf Work Phone: Start: 09-30-2016 Patient encounter procedure Courtney Brown MPBH-Aqkylndjmr-Baqcty Work Phone: Start: 09-24-2016 Patient encounter procedure Courtney Brown MPOF-Ywjlechshz-Rmxuno Work Phone: Start: 09-24-2016 Patient encounter procedure Courtney Brown MPEH-Gyqlvmooyh-Klcudk Work Phone: Start: 09-16-2016 Patient encounter procedure Courtney Brown MPHE-Ekebhdrcll-Wcctie Work Phone: Procedures Date Procedure Procedure Detail [...] with white cell differential, automated Melissa Wilson TIN POT OPERATOR Work Phone: Start: 05-11-2024 Injection of botulinum toxin Jodie Matthews MD Work Phone: Start: 03-08-2024 Ct thorax w/o contra st material Rich Magana MD MPH Work Phone: Start: 03-08-2024 PULMONARY FUNCTION TESTING Courtney Brown MD Work Phone: Start: 03-03-2024 Complete blood count with white cell differential, automated Melissa Wilson TIN POT OPERATOR Work Phone: Start: 02-16-2024 PULMONARY FUNCTION TESTING [...] o f lumbar spine using fluoroscopic guidance untapt Comment on above: 70% relief Start: 04-15-2023 Injection of botulinum toxin Jodie Matthews MD Work Phone: Start: 02-14-2023 Epidural injection o f lumbar spine using fluoroscopic guidance untapt Comment on above: Left L5/S1 & S1 TFES I: 75% relief Start: 02-11-2023 TRANSTHORACIC ECHO ( TTE) LAVERN MAGANA Start: 02-11-2023 Echo tthrc r-t 2d w/ wom-mode compl spec&colr d Rich Magana MD MPH Work Phone: Start: 12-24-2022 Injection of nerve r oot of lumbar spine using fluoroscopic guidance untapt Comment on above: Bilateral L4/L5 TFES I-50% [...] above: Performed By: #### P SAD #### [facility] [address] [place] [address] Dr. Carey Fisher Start: 04-05-2022 CT of facial bones w ithout contrast MD Rachel Rayo Work Phone: Start: 04-05-2022 CT cervical spine wi thout contrast MD Rachel Rayo Work Phone: Start: 04-05-2022 CT of head without contrast MD Rachel Rayo Work Phone: Start: 01-23-2022 Pelvis X-ray MD Rcahel Rayo Work Phone: Start: 01-23-2022 X-ray of [...] above: Performed By: #### R COVD #### [place] [id number] Start: 11-15-2019 Complete PFT w/o ABG Da maia Brown Start: 11-15-2019 Peak expiratory flow rate monitoring using diary Courtney Brown Start: 11-15-2019 Sleep std airflow hr t rate&o2 sat effort unatt Courtney Brown Start: 10-17-2019 Antibody screen Comment on above: Performed By: #### R COVD #### [place] [id number] Start: 10-16-2019 Electrocardiogram Start: 07-15-2019 Radiologic exam [...] DTaP/Tdap/Td Vaccines (2 - Td or Tdap) [facility] Start: 02-17-2025 End: 02-17-2025 Telemedicine consultation with patient 02/17/2025 11:30 AM EDT Telemedicine [facility] Recovery [facility] [address] [facility] [address] [place] [address] Cole Quintana APRN-STRADDLE TRUCK DRIVER [address] [facility], [facility] [address] [place] [address] [facility] Start: 01-02-2025 Influenza vaccination Influenz a Vaccine (Season Ended) [facility] Start: 12-19-2024 End: 12-19-2024 Patient encounter procedure 12/19/2024 2:45 PM EDT Office Visit [facility] [address] [facility] [address] [place] [phone] Courtney Brown MD [address] [facility], [facility] [address] [place] [address] [facility] Start: 11-09-2024 End: 11-09-2024 Patient encounter procedure 11/09/2024 11:20 AM EDT Procedure Visit [facility] [place] [phone] Jodie Matthews MD [address] [place] [address] [facility] Start: 11-07-2024 End: 11-07-2024 Patient encounter procedure 11/07/2024 11:30 AM EDT Procedure Visit [facility] [place] [phone] Jodie Matthews MD [address] [place] [address] [facility] Start: 09-13-2024 End: 09-13-2024 Patient encounter procedure [facility] Start: 09-12-2024 End: 09-12-2024 Patient encounter procedure [facility] Start: 08-10-2024 End: 08-10-2024 Patient encounter procedure 08/10/2024 12:00 PM EDT Procedure Visit [facility] [address] [place] [phone] Jodie Matthews MD [address] [place] [address] [facility] Start: 08-03-2024 End: 08-03-2024 Telemedicine consultation with patient 08/03/2024 1:30 PM EDT Telemedicine [facility] [address] [facility] [address] [place] [address] Cole Quintana, RN ADMIT-STRADDLE TRUCK DRIVER [address] [facility], [facility] [address] [place] [address] [facility] Start: 07-25-2024 End: 07-25-2025 Complete Pulmonary Function Test Pre/Post Bronchodilator (Spirometry Pre/Post/DLCO/Lung Volumes) Complete Pulmonary Function Test Pre/Post Bronchodilator (Spirometry Pre/Post/DLCO/Lung Volumes) PFT Routine ILD (interstitial lung disease) (Multi) Expected: 07/25/2024 (Approximate), Expires: 07/25/2025 [facility] Service Area Work Phone: Comment on above: Expected: 07/25/2024 (Approximate), Expires: 07/25/2025 Start: 07-25-2024 End: 07-25-2025 Pulmonary Stress Test (6 Min. Walk) Pulmonary Stress Test (6 Min. Walk) PFT Routine ILD (interstitial lung disease) (Multi) Expected: 07/25/2024 (Approximate), Expires: 07/25/2025 [facility] Work Phone: Comment on above: Expected: 07/25/2024 (Approximate), Expires: 07/25/2025 Start: 07-12-2024 End: 07-12-2024 Patient encounter procedure 07/12/2024 11:00 AM EDT Office Visit [facility] [address] [place] [phone] Rich Magana MD MPH [address] [place], [place] [id number] [facility] Start: 06-27-2024 End: 06-27-2024 Patient encounter procedure 06/27/2024 10:00 AM EST Office Visit [facility] [address] [place] [phone] Jessica Moore, RN ADMIT-STRADDLE TRUCK DRIVER [address] [place] [address] [facility] Start: 06-21-2024 End: 06-21-2024 Patient encounter procedure 06/21/2024 9:45 AM EST Office Visit [facility] [address] [place] [phone] Rich Magana MD MPH [address] [place] [address] [facility] Start: 06-14-2024 End: 06-14-2024 Patient encounter procedure 06/14/2024 5:00 PM EST Office Visit [facility] [address] [place] [address] [place] [phone] Courtney Brown MD [address] [facility], [address] [place], [place] [id number] [facility] Start: 06-02-2024 End: 06-02-2024 Patient encounter procedure 06/02/2024 1:00 PM EST Office Visit [facility] [address] [place] [phone] Jessica Moore, RN ADMIT-STRADDLE TRUCK DRIVER [address] [place] [address] [facility] Start: 05-23-2024 End: 05-23-2024 Patient encounter procedure 05/23/2024 3:15 PM EST Office Visit [facility] [address] [facility] [address] [place] [phone] Courtney Brown MD [address] [facility], [facility] [address] [place] [address] [facility] Start: 05-16-2024 End: 05-16-2024 Patient encounter procedure 05/16/2024 8:30 AM EST Office Visit [facility] Recovery [facility] [address] [place] [phone] Cole Quintana, RN ADMIT-STRADDLE TRUCK DRIVER [address] [facility] Recovery [facility], [facility] [address] [place] [address] [facility] Start: 04-20-2024 End: 04-20-2024 Patient encounter procedure 04/20/2024 10:00 AM EST Procedure Visit [facility] [address] [place] [phone] Jodie Matthews MD [address] [place] [address] [facility] Start: 04-13-2024 End: 04-13-2024 Patient encounter procedure 04/13/2024 10:30 AM EST Office Visit Isabela Morgan [address] [place] [address] Rich Magana MD MPH [address] [place] [address] Isabela Mitch Morgan Start: 04-06-2024 Lipid screen Lipid screen [place] - [place] Start: 03-21-2024 End: 03-21-2024 Patient encounter procedure 03/21/2024 1:00 PM EST Office Visit [facility] [address] [place] [address] Jessica Moore, RN ADMIT-STRADDLE TRUCK DRIVER [address] [place], [place] [id number] [facility] Start: 03-08-2024 End: 03-08-2024 Patient encounter procedure 03/08/2024 10:45 AM EST Appointment [facility] [address] [place] [phone] [facility] Start: 03-08-2024 End: 03-08-2024 Patient encounter procedure 03/08/2024 9:30 AM EST Office Visit [facility] [address] [place] [address] Courtney Brown MD [address] [facility], [facility] [address] [place] [address] [facility] Start: 03-07-2024 End: 03-07-2024 Patient encounter procedure 03/07/2024 2:30 PM EST Office Visit [facility] [address] [place] [address] Jodie Matthews MD [address] [place] [address] [facility] Start: 02-25-2024 End: 02-25-2024 Patient encounter procedure 02/25/2024 8:30 AM EDT Office Visit [facility] [address] [place] [phone] Cole Quintana APRN-STRADDLE TRUCK DRIVER [address] [facility], [address] [place] [address] [facility] Start: 02-16-2024 End: 02-16-2024 Patient encounter procedure 02/16/2024 10:00 AM EDT Office Visit [facility] [address] [facility] [address] [place] [phone] Courtney Brown MD [address] [facility], [address] [place] [address] [facility] Start: 02-03-2024 End: 02-03-2024 Patient encounter procedure 02/03/2024 1:00 PM EDT Office Visit [facility] [address] [facility] [address] [place] [phone] Gricelda Rivera MD [address] [place] [address] Rd [facility] [address] [place] [address] [facility] Start: 01-28-2024 End: 01-28-2024 Patient encounter procedure 01/28/2024 10:30 AM EDT Office Visit [facility] Recovery [facility] [address] [place] [address] Cole Quintana, RN ADMIT-STRADDLE TRUCK DRIVER [address] [facility] Recovery [facility], [address] [address] [place] [address] [facility] Recovery [facility] Start: 01-11-2024 End: 01-11-2024 Patient encounter procedure 01/11/2024 2:30 PM EDT Procedure Visit [facility] [address] [place] [address] Jodie Matthews MD [address] [place] [address] [facility] Start: 01-03-2024 Influenza vaccination [facility] Start: 12-07-2023 End: 12-07-2023 Patient encounter procedure 12/07/2023 1:30 PM EDT Office Visit [facility] [address] [place] [phone] Jodie Matthews MD [address] [place] [address] [facility] Start: 11-30-2023 End: 11-30-2023 Patient encounter procedure 11/30/2023 3:00 PM EDT Office Visit [facility] [address] [place] [address] Courtney Brown MD [address] [facility], [address] [place] [address] [facility] Start: 11-24-2023 Duplex scan of lower limb veins US venous duplex LE BI [facility] Start: 11-24-2023 US Lower extremity v ein - bilateral [facility] Start: 11-24-2023 X-ray of left ankle XR ankle LT min 3V* [facility] Start: 11-24-2023 XR Ankle - left GE 3 Views [facility] Start: 11-12-2023 Lipid screen Lipid screen Quita Jeff th- [place], [place] Start: 11-09-2023 End: 11-09-2023 Patient encounter procedure 11/09/2023 2:30 PM EDT Office Visit [facility] [address] [place] [address] Rd [address] [place] [phone] [place] [address] [address] [place] [address] [facility] Start: 10-16-2023 Computed tomography of thoracic spine without contrast CT thoracic spine wo [facility] Start: 10-16-2023 CT cervical spine without contrast CT cervical spine wo [facility] Start: 10-16-2023 CT Cervical spine WO [facility] Start: 10-16-2023 CT Lumbar spine WO [facility] Start: 10-16-2023 CT of head without contrast CT head/brain wo [facility] Start: 10-16-2023 CT of lumbar spine without contrast CT lumbar spine wo [facility] Start: 10-16-2023 CT Thoracic spine WO [facility] Start: 10-16-2023 CT Unspecified body region WO [facility] Start: 10-12-2023 End: 10-12-2023 Patient encounter procedure 10/12/2023 3:30 PM EDT Procedure Visit [facility] [address] [place] [address] Jodie Matthews MD [address] [place] [address] [facility] Start: 09-10-2023 End: 09-10-2023 Patient encounter procedure 09/10/2023 11:00 AM EDT Office Visit [facility] [address] [place] [address] Jodie Matthews MD [address] [place] [address] [facility] Start: 09-07-2023 End: 09-07-2023 Patient encounter procedure 09/07/2023 3:00 PM EDT Office Visit [facility] [address] [place] [address] Courtney Brown MD [address] [facility], [address] [place] [address] [facility] Start: 07-22-2023 X-ray of both knees XR knee BI 4V Fi [facility] Start: 07-22-2023 XR Knee - bilateral 4 Views [facility] Start: 07-22-2023 Pelvis X-ray XR pelvis 1-2V [facility] Start: 07-22-2023 XR Pelvis 1 or 2 Views [facility] Start: 07-15-2023 End: 07-15-2023 Patient encounter procedure 07/15/2023 11:20 AM EDT Procedure Visit [facility] [address] [place] [phone] Jodie Matthews MD [address] [place] [address] [facility] Start: 06-22-2023 End: 06-22-2023 Patient encounter procedure 06/22/2023 3:00 PM EST Office Visit [facility] [address] [place] [phone] Jodie Matthews MD [address] [place], [place] [phone] [facility] Start: 05-21-2023 End: 05-21-2023 Patient encounter procedure 05/21/2023 9:00 AM EST Office Visit [facility] [address] [place] [address] Jodie Matthews MD [address] [place], [place] [phone] [facility] Start: 05-12-2023 End: 05-12-2023 Patient encounter procedure 05/12/2023 10:45 AM EST Office Visit [facility] [address] [facility] [address] [place] [address] Courtney Brown MD [address] [facility], [facility] [address] [place] [phone] [facility] Start: 04-15-2023 End: 04-15-2023 Patient encounter procedure 04/15/2023 11:20 AM EST Procedure Visit [facility] [address] [facility] [address] [place] [phone] Jodie Matthews MD [address] [facility] [address] [place] [address] [facility] Start: 04-08-2023 End: 04-08-2024 25-hydroxyvitamin D3 [Mass/volume] in Serum or Plasma Vitamin D 25-Hydroxy,Total (for eval of Vitamin D levels) Lab Routine Fatigue, unspecified type Vitamin D deficiency, unspecified Expected: 04/08/2023 (Approximate), Expires: 04/08/2024 [facility] Work Phone: Comment on above: Expected: 04/08/2023 (Approximate), Expires: 04/08/2024 Start: 04-08-2023 End: 04-08-2024 CBC W Auto Differential panel - Blood CBC and Auto Differential Lab Routine Fatigue, unspecified type Expected: 04/08/2023 (Approximate), Expires: 04/08/2024 [facility] Work Phone: Comment on above: Expected: 04/08/2023 (Approximate), Expires: 04/08/2024 Start: 04-08-2023 End: 04-08-2024 Chlamydia Antibodies IgM Chlamydia Antibodies IgM Lab Routine Fatigue, unspecified type Expected: 04/08/2023 (Approximate), Expires: 04/08/2024 [facility] Work Phone: Comment on above: Expected: 04/08/2023 (Approximate), Expires: 04/08/2024 Start: 04-08-2023 End: 04-08-2024 Cobalamin (Vitamin B12) [Mass/volume] in Serum or Plasma Vitamin B12 Lab Routine Fatigue, unspecified type Expected: 04/08/2023 (Approximate), Expires: 04/08/2024 [facility] Work Phone: Comment on above: Expected: 04/08/2023 (Approximate), Expires: 04/08/2024 Start: 04-08-2023 End: 04-08-2024 Comprehensive metabolic 2000 panel - Serum or Plasma Comprehensive Metabolic Panel Lab Routine Fatigue, unspecified type Expected: 04/08/2023 (Approximate), Expires: 04/08/2024 [facility] Work Phone: Comment on above: Expected: 04/08/2023 (Approximate), Expires: 04/08/2024 Start: 04-08-2023 End: 04-08-2024 Cytomegalovirus IgM Ab [Units/volume] in Serum or Plasma Cytomegalovirus antibody, IgM Lab Routine Fatigue, unspecified type Expected: 04/08/2023 (Approximate), Expires: 04/08/2024 [facility] Work Phone: Comment on above: Expected: 04/08/2023 (Approximate), Expires: 04/08/2024 Start: 04-08-2023 End: 04-08-2024 Zuleyma-Ho Virus Antibody Panel Zuleyma-Ho Virus Antibody Panel Lab Routine Fatigue, unspecified type Expected: 04/08/2023 (Approximate), Expires: 04/08/2024 [facility] Work Phone: Comment on above: Expected: 04/08/2023 (Approximate), Expires: 04/08/2024 Start: 04-08-2023 End: 04-08-2024 IgG [Mass/volume] in Serum or Plasma IgG Lab Routine Fatigue, unspecified type Expected: 04/08/2023 (Approximate), Expires: 04/08/2024 [facility] Work Phone: Comment on above: Expected: 04/08/2023 (Approximate), Expires: 04/08/2024 Start: 04-08-2023 End: 04-08-2024 Mycoplasma pneumoniae IgM Ab [Units/volume] in Serum by Immunoassay Mycoplasma Pneumoniae Antibody, IgM Lab Routine Fatigue, unspecified type Expected: 04/08/2023 (Approximate), Expires: 04/08/2024 [facility] Work Phone: Comment on above: Expected: 04/08/2023 (Approximate), Expires: 04/08/2024 Start: 04-08-2023 End: 04-08-2024 TSH with reflex to Free T4 if abnormal TSH with reflex to Free T4 if abnormal Lab Routine Fatigue, unspecified type Expected: 04/08/2023 (Approximate), Expires: 04/08/2024 [facility] Work Phone: Comment on above: Expected: 04/08/2023 (Approximate), Expires: 04/08/2024 Start: 04-08-2023 End: 04-08-2024 Urinalysis complete panel - Urine Urinalysis with Reflex Microscopic Lab Routine Fatigue, unspecified type Expected: 04/08/2023 (Approximate), Expires: 04/08/2024 [facility] Work Phone: Comment on above: Expected: 04/08/2023 (Approximate), Expires: 04/08/2024 Start: 04-08-2023 End: 04-08-2024 Zinc [Mass/volume] in Serum or Plasma Zinc, Serum or Plasma Lab Routine Fatigue, unspecified type Expected: 04/08/2023 (Approximate), Expires: 04/08/2024 [facility] Work Phone: Comment on above: Expected: 04/08/2023 (Approximate), Expires: 04/08/2024 Start: 03-24-2023 End: 03-24-2023 Patient encounter procedure 03/24/2023 1:00 PM EST Procedure Visit [facility] [address] [place] [phone] Jodie Matthews MD [address] [place] [address] [facility] Start: 02-16-2023 Patient encounter procedure FUVCFATUMA, Provider: [id number] [facility] RM1,[id number], Status: Pen, Time: 10:30 AM DD-Apqhfworq-Jcshle [address] DO Work Phone: Start: 02-09-2023 FUV, Provider: Courtney Brown, Status: Pen, Time: 11:00 AM FUV, Provider: Courtney Brown, Status: Pen, Time: 11:00 AM YZ-Injwqypikt-Irxoj [address] DO Work Phone: Start: 02-02-2023 FUV, Provider: Rich Magana, Status: Pen, Time: 12:45 PM FUV, Provider: Rich Magana, Status: Pen, Time: 12:45 PM SO-Shheazqfuq-Ekfph a Work Phone: Start: 01-27-2023 FUV, Provider: Rich Magana, Status: Pen, Time: 11:45 AM FUV, Provider: Rich Magana, Status: Pen, Time: 11:45 AM OL-Mosexquka-Auazup [address] DO Work Phone: Start: 01-20-2023 BOTOX, Provider: Jodie Matthews, Status: Pen, Time: 11:00 AM BOTOX, Provider: Jodie Matthews, Status: Pen, Time: 11:00 AM MP-Pulmonary Medicine-[place] [address] [place] Work Phone: Start: 01-02-2023 Influenza vaccination Influenza Vacc ine (#1) [facility] Start: 12-24-2022 FUVGENERAL, Provider : Jodie Matthews, Status: Pen, Time: 11:30 AM FUVGENERAL, Provider: Jodie Matthews, Status: Pen, Time: 11:30 AM OW-Fbtbngpyr-Ouxqfn [address] DO Work Phone: Start: 11-26-2022 FUVGENERAL, Provider : Jodie Matthews, Status: Pen, Time: 11:00 AM FUVGENERAL, Provider: Jodie Matthews, Status: Pen, Time: 11:00 AM MP-Pulmonary Medicine-[place] [address] [place] Work Phone: Start: 11-12-2022 Patient encounter procedure GINO, Provider: [id number] [facility] RM1,[id number], Status: Pen, Time: 8:00 AM [facility] [address] [place] Work Phone: Start: 11-11-2022 FUV, Provider: Rich Magana, Status: Pen, Time: 11:00 AM FUV, Provider: Rich Magana, Status: Pen, Time: 11:00 AM MP-Pulmonary Medicine-[facility] [address] [place] Work Phone: Start: 11-03-2022 FUV, Provider: Courtney Brown, Status: Pen, Time: 10:45 AM FUV, Provider: Courtney Brown, Status: Pen, Time: 10:45 AM RQ-Rhgtkbqzci-Tcdpm a Work Phone: Start: 10-20-2022 BOTOX, Provider: Jodie aMtthews, Status: Pen, Time: 11:30 AM BOTOX, Provider: Jodie Matthews, Status: Pen, Time: 11:30 AM BG-Tuatjclsjx-Tesqh a Work Phone: Start: 10-15-2022 BOTOX, Provider: Jodie Matthews, Status: Pen, Time: 2:30 PM BOTOX, Provider: Jodie Matthews, Status: Pen, Time: 2:30 PM AC-Uifppvtiir-Evsmc a Work Phone: Start: 09-09-2022 FUV, Provider: Courtney Brown, Status: Pen, Time: 12:00 PM FUV, Provider: Courtney Brown, Status: Pen, Time: 12:00 PM [facility] [address] [place] Work Phone: Start: 09-08-2022 FUV, Provider: Rich Magana, Status: Pen, Time: 10:00 AM FUV, Provider: Rich Magana, Status: Pen, Time: 10:00 AM [facility] [address] [place] Work Phone: Start: 09-03-2022 FUVGENERAL, Provider : Jodie Matthews, Status: Pen, Time: 10:30 AM FUVGENERAL, Provider: Jodie Matthews, Status: Pen, Time: 10:30 AM BC-Uibisydwus-Tayze a Work Phone: Start: 08-29-2022 Patient encounter procedure FUVCOVID, Provider: KEYUR [facility] RM1,[id number], Status: Pen, Time: 8:30 AM [facility] [address] [place] Work Phone: Start: 08-18-2022 FUV, Provider: Courtney Brown, Status: Pen, Time: 10:45 AM FUV, Provider: Courtney Brown, Status: Pen, Time: 10:45 AM UF-Sktvrhcgif-Tnztc [address] DO Work Phone: Start: 08-13-2022 FUV, Provider: Rich Magana, Status: Pen, Time: 10:45 AM FUV, Provider: Rich Magana, Status: Pen, Time: 10:45 AM UM-Crxtydbomv-Ueetv [address] DO Work Phone: Start: 07-16-2022 BOTOX, Provider: Jodie Matthews, Status: Pen, Time: 3:00 PM BOTOX, Provider: Jodie Matthews, Status: Pen, Time: 3:00 PM PK-Wzlbydwiq-Xwuis [address] Work Phone: Start: 07-09-2022 FUV, Provider: Rich Magana, Status: Pen, Time: 10:00 AM FUV, Provider: Rich Magana, Status: Pen, Time: 10:00 AM [facility] [address] [place] Work Phone: Start: 06-16-2022 FUV, Provider: Courtney Brown, Status: Pen, Time: 10:45 AM FUV, Provider: Courtney Brown, Status: Pen, Time: 10:45 AM [facility] 200 [place] Work Phone: Start: 06-02-2022 FUVGENERAL, Provider : Jodie Matthews, Status: Pen, Time: 3:30 PM FUVGENERAL, Provider: Jodie Matthews, Status: Pen, Time: 3:30 PM XE-Lurropkou-Csgvl 204 Work Phone: Start: 06-02-2022 Patient encounter procedure FUVCOVID, [facility],[id number], Status: Pen, Time: 10:30 AM -Gastroenterology -[place] S[facility]W [address] DO Work Phone: Start: 05-26-2022 Patient encounter procedure FUVCOVID, Provider: [facility]UR [facility] RM1,[id number], Status: Pen, Time: 1:30 PM GV-Qcrtohwwjc-Jeyyf a Work Phone: Start: 05-12-2022 EGDANS, Provider: Park Byrd, Status: Pen, Time: 2:00 PM EGDANS, Provider: Park Byrd, Status: Pen, Time: 2:00 PM FO-Qakkaegmu-Lulfu [address] Work Phone: Start: 04-21-2022 EGDANS, Provider: Park Byrd, Status: Pen, Time: 1:30 PM EGDANS, Provider: Park Byrd, Status: Pen, Time: 1:30 PM MP-Pulmonary Medicine-[place] [address] [place] Work Phone: Start: 04-16-2022 BOTOX, Provider: Jodie Matthews, Status: Pen, Time: 2:30 PM BOTOX, Provider: Jodie Matthews, Status: Pen, Time: 2:30 PM LK-Pkdlqoddc-Pdxrmi 170 DO Work Phone: Start: 04-14-2022 Diabetes screen Diabetes screen [facility] Work Phone: Start: 04-14-2022 FUV, Provider: Courtney Brown, Status: Pen, Time: 11:00 AM FUV, Provider: Courtney Brown, Status: Pen, Time: 11:00 AM RI-Fuadcafhma-Nqdcc [address] DO Work Phone: Start: 04-11-2022 [facility] Start: 04-07-2022 [facility] Start: 04-07-2022 FUV, Provider: Rich Magana, Status: Pen, Time: 11:45 AM FUV, Provider: Rich Magana, Status: Pen, Time: 11:45 AM MG-Gastroenterology -[place] [facility] 450 DO Work Phone: Start: 04-05-2022 CT Facial bones WO contrast [facility] Start: 04-05-2022 CT of facial bones without contrast CT facial bones wo con [facility] Start: 04-05-2022 CT cervical spine without contrast CT cervical spine wo [facility] Start: 04-05-2022 CT Cervical spine WO contrast [facility] Start: 04-05-2022 CT of head without contrast CT head/brain wo [facility] Start: 04-05-2022 CT Unspecified body region WO contrast [facility] Start: 04-03-2022 [facility] Start: 04-01-2022 FUV, Provider: Rich Magana, Status: Pen, Time: 11:30 AM FUV, Provider: Rich Magana, Status: Pen, Time: 11:30 AM VD-Uirdbajfx-Wykjhe 170 DO Work Phone: Start: 04-01-2022 [facility] Start: 03-26-2022 [facility] Start: 03-18-2022 [facility] Start: 02-26-2022 FUVGENERAL, Provider : Jodie Matthews, Status: Pen, Time: 2:30 PM FUVGENERAL, Provider: Jodie Matthews, Status: Pen, Time: 2:30 PM LM-Ygiehppzg-Uagvwn 170 DO Work Phone: Start: 02-26-2022 FUVGENERAL, Provider : Jodie Matthews, Status: Pen, Time: 9:30 AM FUVGENERAL, Provider: Jodie Matthews, Status: Pen, Time: 9:30 AM MP-Pulmonary Medicine-[place] [address] [place] Work Phone: Start: 02-24-2022 FUV, Provider: Courtney Brown, Status: Pen, Time: 11:00 AM FUV, Provider: Courtney Brown, Status: Pen, Time: 11:00 AM UB-Smolsmqrzy-Zpiqs [address] DO Work Phone: Start: 02-14-2022 Patient encounter procedure VIRFUVHOME, Provider: [facility]UR [facility] RM[facility],[id number], Status: Pen, Time: 11:30 AM MG-Pulm Sleep-[place] [address] [place] Work Phone: Start: 02-12-2022 FUV, Provider: Rich Magana, Status: Pen, Time: 10:15 AM FUV, Provider: Rich Magana, Status: Pen, Time: 10:15 AM MP-Pulmonary Medicine-[place] [address] [place] Work Phone: Start: 02-11-2022 FUV, Provider: Courtney Brown, Status: Pen, Time: 11:45 AM FUV, Provider: Courtney Brown, Status: Pen, Time: 11:45 AM FK-Fpikpyasel-Pbcco [address] DO Work Phone: Start: 02-06-2022 NPV, Provider: Monserrat Medrano, Status: Pen, Time: 2:30 PM NPV, Provider: Monserrat Medrano, Status: Pen, Time: 2:30 PM PA-Nwleyaiuyi-Aztei [address] DO Work Phone: Start: 02-03-2022 Patient encounter procedure VIRFUVHOME, Provider: KEYUR [facility] RM[facility],[id number], Status: Pen, Time: 11:30 AM TZ-Swmkghnels-Satjc [address] DO Work Phone: Start: 01-31-2022 Patient encounter procedure VIRFUVHOME, Provider: KEYUR [facility] RM1,[id number], Status: Pen, Time: 11:30 AM JW-Bivflrtms-Hlfjsh 170 DO Work Phone: Start: 01-29-2022 [facility] Start: 01-29-2022 [facility] Start: 01-24-2022 [facility] Start: 01-24-2022 [facility] Start: 01-22-2022 [facility] Start: 01-02-2022 NPV, Provider: Frenando Rivera, Status: Pen, Time: 1:00 PM NPV, Provider: Fernando Rivera, Status: Pen, Time: 1:00 PM IX-Kkvvpmprzn-Rtnlz [address] DO Work Phone: Start: 12-17-2021 BOTOX, Provider: Jodie Matthews, Status: Pen, Time: 1:30 PM BOTOX, Provider: Jodie Matthews, Status: Pen, Time: 1:30 PM MP-Pulmonary Medicine-[place] [address] [place] Work Phone: Start: 12-17-2021 INJECTION, Provider: [employer] [id number], Status: Pen, Time: 11:45 AM INJECTION, Provider: RAD[employer] DIV[employer] [id number], Status: Pen, Time: 11:45 AM IC-Lcuyshsbxo-Crici eb[address]zer [address] DO Work Phone: Start: 12-16-2021 FUV, Provider: Rich Magana, Status: Pen, Time: 10:00 AM FUV, Provider: Rich Magana, Status: Pen, Time: 10:00 AM XJ-Mwmajrsvhq-Rzmcb ebenezer [address] DO Work Phone: Start: 12-10-2021 Pneumococcal vaccination Pneumococcal Vaccine (3 of 3 - PCV) [facility] Start: 12-10-2021 Pneumococcal Vaccine : Pediatrics (0 to 5 Years) and At-Risk Patients (6 to 64 Years) (3 - PCV) Pneumococcal Vaccine: Pediatrics (0 to 5 Years) and At-Risk Patients (6 to 64 Years) (3 - PCV) [facility] Start: 12-10-2021 Pneumococcal Vaccine : Pediatrics (0 to 5 Years) and At-Risk Patients (6 to 64 Years) (3 of 3 - PCV) Pneumococcal Vaccine: Pediatrics (0 to 5 Years) and At-Risk Patients (6 to 64 Years) (3 of 3 - PCV) [facility] Start: 11-29-2021 FUV, Provider: Courtney Brown, Status: Pen, Time: 9:45 AM FUV, Provider: Courtney Brown, Status: Pen, Time: 9:45 AM MP-Pulmonary Medicine-[place] [address] [place] Work Phone: Start: 11-15-2021 VIRNPVBEBETOE, Provider : Tom Bates, Status: Pen, Time: 10:00 AM VIRNPVHOME, Provider: Tom Bates, Status: Pen, Time: 10:00 AM YS-Vcixuurkv-Hztdqt 170 DO Work Phone: Start: 11-13-2021 NPVOPTOM, Provider: Kandice Mccauley, Status: Pen, Time: 1:00 PM NPVOPTOM, Provider: Kandice Mccauley, Status: Pen, Time: 1:00 PM SN-Dgmzccped-Acnfjd 170 DO Work Phone: Start: 11-13-2021 FUV, Provider: Rich Magana, Status: Pen, Time: 10:30 AM FUV, Provider: Rich Magana, Status: Pen, Time: 10:30 AM MP-Pulmonary Medicine-[place] [address] [place] Work Phone: Start: 11-06-2021 FUVGENERAL, Provider : Jodie Matthews, Status: Pen, Time: 1:30 PM FUVGENERAL, Provider: Joide Matthews, Status: Pen, Time: 1:30 PM MP-Pulmonary Medicine-[place] [address] [place] Work Phone: Start: 11-05-2021 FUVGENERAL, Provider : Jacki Dee, Status: Pen, Time: 10:30 AM FUVGENERAL, Provider: Jacki Dee, Status: Pen, Time: 10:30 AM QV-Obhtfetlnr-Qrxsh a Work Phone: Start: 11-05-2021 FUVGENERAL, Provider : Jacki Alnais, Status: Pen, Time: 10:30 AM FUVGENERAL, Provider: Jacki Alanis, Status: Pen, Time: 10:30 AM IN-Inbxnbpeh-Augib 204 Work Phone: Start: 11-05-2021 NPVOPTOM, Provider: Kandice Mccauley, Status: Pen, Time: 9:30 AM NPVOPTOM, Provider: Kandice Mccauley, Status: Pen, Time: 9:30 AM ZA-Qrcwkbawqs-Dapey ebenezer 2100 DO Work Phone: Start: 11-01-2021 NPVACCESS, Provider: Tom Bates, Status: Pen, Time: 11:00 AM NPVACCESS, Provider: Tom Bates, Status: Pen, Time: 11:00 AM JG-Ngjdbmcnpv-Ewiis ebenezer 2100 DO Work Phone: Start: 10-28-2021 FUV, Provider: Courtney Brown, Status: Pen, Time: 11:00 AM FUV, Provider: Courtney Brown, Status: Pen, Time: 11:00 AM WX-Pkeivacaph-Utjkf ebenezer 2100 DO Work Phone: Start: 10-24-2021 AUTONOMIC, Provider: AUTO-CHAGRIN,NEURODIAG, Status: Pen, Time: 9:00 AM AUTONOMIC, Provider: AUTO-CHAGRIN,NEURODIAG, Status: Pen, Time: 9:00 AM FL-Dzfvtuiccp-Xwbzs ebenezer 2100 DO Work Phone: Start: 10-22-2021 INJECTION, Provider: RADIO DIVISION OFFICERJASS SELF, Status: Pen, Time: 4:00 PM INJECTION, Provider: RADIO DIVISION OFFICERJASS, Status: Pen, Time: 4:00 PM BG-Kexhgjjeu-Qgvdar 170 DO Work Phone: Start: 10-17-2021 FUVGENERAL, Provider : Mathew Miller, Status: Pen, Time: 10:30 AM FUVGENERAL, Provider: Mathew Miller, Status: Pen, Time: 10:30 AM MG-Pulm Sleep-[place] 130 [place] Work Phone: Start: 10-15-2021 INJECTION, Provider: RADIO DIVISION OFFICERJASS SELF, Status: Pen, Time: 11:45 AM INJECTION, Provider: RADIO DIVISION OFFICER,[id number], Status: Pen, Time: 11:45 AM QO-Jmvtacjamw-Nxshb ebenezer 2100 DO Work Phone: Start: 10-03-2021 AUTONOMIC, Provider: AUTO-CHAGRIN,NEURODIAG, Status: Pen, Time: 1:00 PM AUTONOMIC, Provider: AUTO-CHAGRIN,NEURODIAG, Status: Pen, Time: 1:00 PM VV-Mzjgerzol-Slhuyi 170 DO Work Phone: Start: 09-25-2021 FUV, Provider: [place], Status: Pen, Time: 9:20 AM FUV, Provider: [place], Status: Pen, Time: 9:20 AM MG-Pulm Sleep-[place] 130 [place] Work Phone: Start: 09-24-2021 STRESS NUC, Provider : ELSY HHVI NUCLEAR 01,[id number], Status: Pen, Time: 8:00 AM STRESS NUC, Provider: ELSY HHVI NUCLEAR 01,[id number], Status: Pen, Time: 8:00 AM AB-Vyuyfojmno-Awonx ebenezer 2100 DO Work Phone: Start: 09-18-2021 NPVOPTOM, Provider: Kandice Mccauley, Status: Pen, Time: 10:15 AM NPVOPTOM, Provider: Kandice Mccauley, Status: Pen, Time: 10:15 AM MP-[facility] Heart-[place] 250 DO Work Phone: Start: 09-16-2021 BOTOX, Provider: Jodie Matthews, Status: Pen, Time: 2:30 PM BOTOX, Provider: Jodie Matthews, Status: Pen, Time: 2:30 PM PO-Bgigndltob-Twaaf a Work Phone: Start: 09-16-2021 FUV, Provider: Rich Magana, Status: Pen, Time: 9:15 AM FUV, Provider: Rich Magana, Status: Pen, Time: 9:15 AM QI-Mvnjimrclg-Kxlau ebenezer 2100 DO Work Phone: Start: 09-12-2021 AUTONOMIC, Provider: AUTO-CHAGRIN,NEURODIAG, Status: Pen, Time: 1:00 PM AUTONOMIC, Provider: AUTO-CHAGRIN,NEURODIAG, Status: Pen, Time: 1:00 PM MG-Pulm Sleep-[place] 130 [place] Work Phone: Start: 09-12-2021 FUV, Provider: [place], Status: Pen, Time: 9:50 AM FUV, Provider: [place], Status: Pen, Time: 9:50 AM IK-Tnrdyepkul-Lymmu a Work Phone: Start: 09-11-2021 STRESS NUC, Provider : ELSY HHVI NUCLEAR 01,[id number], Status: Pen, Time: 8:00 AM STRESS NUC, Provider: ELSY HHVI NUCLEAR 01,[id number], Status: Pen, Time: 8:00 AM MG-Pulm Sleep-[place] 130 [place] Work Phone: Start: 09-08-2021 Creatinine measurement Creatinine mo nitoring [facility] Work Phone: Start: 09-08-2021 Potassium monitoring Potassium monit oring [facility] Work Phone: Start: 09-02-2021 Patient encounter procedure FUVCOVID, Provider: [facility],[id number], Status: Pen, Time: 2:00 PM [facility]-[place] 130 [place] Work Phone: Start: 08-31-2021 COVID-19 Vaccine (3 - Pfizer risk series) COVID-19 Vaccine (3 - Pfizer risk series) [facility] Start: 08-29-2021 AUTONOMIC, Provider: AUTO-CHAGRIN,NEURODIAG, Status: Pen, Time: 9:00 AM AUTONOMIC, Provider: AUTO-CHAGRIN,NEURODIAG, Status: Pen, Time: 9:00 AM -[facility] Heart-[place] 250 DO Work Phone: Start: 08-27-2021 FUV, Provider: [place], Status: Pen, Time: 10:50 AM FUV, Provider: [place], Status: Pen, Time: 10:[address] [facility] Heart-[place] 250 DO Work Phone: Start: 08-27-2021 STRESS NUC, Provider : ELSY HHVI NUCLEAR 01,[id number], Status: Pen, Time: 8:00 AM STRESS NUC, Provider: ELSY HHVI NUCLEAR 01,[id number], Status: Pen, Time: 8:00 AM IO-Xbyvheyrvh-Kzkum a Work Phone: Start: 08-25-2021 Creatinine measurement [facility] Work Phone: Start: 08-25-2021 Potassium monitoring Potassium monit oring [facility] Work Phone: Start: 08-24-2021 COVID-19 Vaccine (2 - Pfizer risk series) COVID-19 Vaccine (2 - Pfizer risk series) [facility] Start: 08-14-2021 STRESS NUC, Provider : ELSY HHVI NUCLEAR 01,[id number], Status: Pen, Time: 7:30 AM STRESS NUC, Provider: ELSY HHVI NUCLEAR 01,[id number], Status: Pen, Time: 7:[address] [facility] Heart-[place] 250 DO Work Phone: Start: 08-13-2021 FUV, Provider: Courtney Brown, Status: Pen, Time: 11:45 AM FUV, Provider: Courtney Brown, Status: Pen, Time: 11:45 AM YN-Qgeonrfudm-Ckbsw ebenezer 2100 DO Work Phone: Start: 08-12-2021 FUV, Provider: Rich Magana, Status: Pen, Time: 11:15 AM FUV, Provider: Rich Magana, Status: Pen, Time: 11:15 AM MP-Pulmonary Medicine-[place] 200 [place] Work Phone: Start: 08-07-2021 AUTONOMIC, Provider: AUTO-CHAGRIN,NEURODIAG, Status: Pen, Time: 1:15 PM AUTONOMIC, Provider: AUTO-CHAGRIN,NEURODIAG, Status: Pen, Time: 1:15 PM RU-Ohpbjbnfyf-Ajvao ebenezer 2100 DO Work Phone: Start: 07-30-2021 FUVGENERAL, Provider : Jodie Matthews, Status: Pen, Time: 1:00 PM FUVGENERAL, Provider: Jodie Matthews, Status: Pen, Time: 1:00 PM GW-Qpnbqwbbna-Hevhz a Work Phone: Start: 07-29-2021 Urine culture Urine Culture [facility] Start: 07-10-2021 FUV, Provider: Rich Magana, Status: Pen, Time: 10:45 AM FUV, Provider: Rich Magana, Status: Pen, Time: 10:45 AM RU-Ijegmeslno-Nmvem ebenezer 2100 DO Work Phone: Start: 07-01-2021 ECHO, Provider: ELSY HHVI ULTRASOUND 01,[id number], Status: Pen, Time: 12:30 PM ECHO, Provider: ELSY HHVI ULTRASOUND 01,[id number], Status: Pen, Time: 12:30 PM [facility] Recovery [facility] 130 [place] Work Phone: Start: 06-26-2021 AUTONOMIC, Provider: AUTO-CHAGRIN,NEURODIAG, Status: Pen, Time: 1:15 PM AUTONOMIC, Provider: AUTO-CHAGRIN,NEURODIAG, Status: Pen, Time: 1:15 PM KS-Qbiqgqqrvn-Udmls a Work Phone: Start: 06-19-2021 BOTOX, Provider: Jodie Matthews, Status: Pen, Time: 1:00 PM BOTOX, Provider: Jodie Matthews, Status: Pen, Time: 1:00 PM [facility] [place] Work Phone: Start: 06-18-2021 FUV, Provider: Courtney Brown, Status: Pen, Time: 10:45 AM FUV, Provider: Courtney Brown, Status: Pen, Time: 10:45 AM HT-Uenmwnffae-Sabmi ebenezer 2100 DO Work Phone: Start: 06-12-2021 FUV, Provider: Rich Magana, Status: Pen, Time: 11:30 AM FUV, Provider: Rich Magana, Status: Pen, Time: 11:30 AM MP-Pulmonary Medicine-[place] 200 [place] Work Phone: Start: 06-04-2021 VIRFUVROCÍO, Provider : Courtney Brown, Status: Pen, Time: 11:45 AM VIRFUVHOME, Provider: Courtney Brown, Status: Pen, Time: 11:45 AM PU-Vcmwamzzfo-Ujyjh ebenezer 2100 DO Work Phone: Start: 06-03-2021 Patient encounter procedure FUVCOVID, Provider: SHAYLA09 [facility] RM1,[id number], Status: Pen, Time: 9:30 AM AT-Ozyxpstvi-Zfdyts 170 DO Work Phone: Start: 05-30-2021 ECHO, Provider: ELSY HHVI ULTRASOUND 01,[id number], Status: Pen, Time: 2:30 PM ECHO, Provider: ELSY HHVI ULTRASOUND 01,[id number], Status: Pen, Time: 2:30 PM NK-Cmltajrczr-Pruam a Work Phone: Start: 05-29-2021 NPV, Provider: Park Carrington, Status: Pen, Time: 2:40 PM NPV, Provider: Park Carrington, Status: Pen, Time: 2:40 PM FZ-Lksjmetzsg-Mrfpz a Work Phone: Start: 05-29-2021 BOTOX, Provider: Jodie Matthews, Status: Pen, Time: 11:00 AM BOTOX, Provider: Jodie Matthews, Status: Pen, Time: 11:00 AM BM-Vyhvobfoql-Rqstg ebenezer 2100 DO Work Phone: Start: 05-23-2021 BOTOX, Provider: Jodie Matthews, Status: Pen, Time: 11:00 AM BOTOX, Provider: Jodie Matthews, Status: Pen, Time: 11:00 AM VH-Zexglxrqx-Ohyeoc 170 DO Work Phone: Start: 05-16-2021 FUVGENERAL, Provider : Mathew Miller, Status: Pen, Time: 9:30 AM FUVGENERAL, Provider: Mathew Miller, Status: Pen, Time: 9:30 AM NB-Mhxonpcyzp-Opsqy ebenezer 2100 DO Work Phone: Start: 05-15-2021 ENG, Provider: Marina Alcantar, Status: Pen, Time: 8:30 AM ENG, Provider: Marina Alcantar, Status: Pen, Time: 8:30 AM MP-Pulmonary Medicine-[place] 200 [place] Work Phone: Start: 05-13-2021 FUV, Provider: Courtney Brown, Status: Pen, Time: 11:15 AM FUV, Provider: Courtney Brown, Status: Pen, Time: 11:15 AM [facility] Work Phone: Start: 05-07-2021 FUV, Provider: Rich Magana, Status: Pen, Time: 8:15 AM FUV, Provider: Rich Magana, Status: Pen, Time: 8:15 AM AQ-Nudjibwxf-Jnqdik 170 DO Work Phone: Start: 05-06-2021 INJECTION, Provider: RADIO DIVISION OFFICERJASS, Status: Pen, Time: 10:45 AM INJECTION, Provider: RADIO DIVISION OFFICERJASS, Status: Pen, Time: 10:45 AM [facility] 290 Work Phone: Start: 05-02-2021 ENG, Provider: Marina Alcantar, Status: Pen, Time: 10:00 AM ENG, Provider: Marina Alcantar, Status: Pen, Time: 10:00 AM MP-Pulmonary Medicine-[place] A2470 DO Work Phone: Start: 04-23-2021 FUV, Provider: Courtney Brown, Status: Pen, Time: 12:00 PM FUV, Provider: Courtney Brown, Status: Pen, Time: 12:00 PM MP-Pulmonary Medicine-[place] A2470 DO Work Phone: Start: 04-22-2021 INJECTION, Provider: RADIO DIVISION [id number], Status: Pen, Time: 10:45 AM INJECTION, Provider: RADIO DIVISION OFFICER,[id number], Status: Pen, Time: 10:45 AM QS-Zpsgoqvznk-Yxadm ebenezer 2100 DO Work Phone: Start: 04-19-2021 NPV, Provider: Jaci Solano, Status: Pen, Time: 2:00 PM NPV, Provider: Jaci Solano, Status: Pen, Time: 2:00 PM MP-Pulmonary Medicine-[place] A2470 DO Work Phone: Start: 04-16-2021 FUVGENERAL, Provider : Jacki Alanis, Status: Pen, Time: 2:00 PM FUVGENERAL, Provider: Jacki Alanis, Status: Pen, Time: 2:00 PM RC-Cudnkhiwb-Wncdk 204 Work Phone: Start: 04-10-2021 FUVGENERAL, Provider : Jodie Matthews, Status: Pen, Time: 11:30 AM FUVGENERAL, Provider: Jodie Matthews, Status: Pen, Time: 11:30 AM IQ-Nslzctohi-Vfimzw 170 DO Work Phone: Start: 04-01-2021 FUV, Provider: Courtney Brown, Status: Pen, Time: 11:00 AM FUV, Provider: Courtney Brown, Status: Pen, Time: 11:00 AM IM-Scjwkhgqn-Ftuid 204 Work Phone: Start: 04-01-2021 NPVSLEEP, Provider: Ivonne Nagy, Status: Pen, Time: 10:00 AM NPVSLEEP, Provider: Ivonne Nagy, Status: Pen, Time: 10:00 AM HN-Eypmjbkex-Zdargt 170 DO Work Phone: Start: 03-26-2021 ENG, Provider: Ysabel Hoang, Status: Pen, Time: 3:00 PM ENG, Provider: Ysabel Hoang, Status: Pen, Time: 3:00 PM LA-Zqbvwxtoi-Eengp 204 Work Phone: Start: 03-22-2021 Patient encounter procedure FUVCOVID, Provider: [facility] RM1,[id number], Status: Pen, Time: 8:30 AM FH-Qmgbgnucgg-Ghhtn ebenezer 2100 DO Work Phone: Start: 03-20-2021 FUV, Provider: Rich Magana, Status: Pen, Time: 10:45 AM FUV, Provider: Rich Magana, Status: Pen, Time: 10:45 AM TV-Dohfkbzhht-Orqtt ebenezer 2100 DO Work Phone: Start: 03-20-2021 NPV, Provider: Jaci Solano, Status: Pen, Time: 8:00 AM NPV, Provider: Jaci Solano, Status: Pen, Time: 8:00 AM KL-Zusfokraz-Xatwh 204 Work Phone: Start: 03-18-2021 FUV, Provider: Rich Magana, Status: Pen, Time: 9:45 AM FUV, Provider: Rich Magana, Status: Pen, Time: 9:45 AM QB-Wlazpduiu-Ojuzmy 170 DO Work Phone: Start: 03-15-2021 INJECTION, Provider: RADIO DIVISION OFFICERJASS SELF, Status: Pen, Time: 10:45 AM INJECTION, Provider: RADIO DIVISION [id number], Status: Pen, Time: 10:45 AM TB-Ahpkejpbc-Naayc 204 Work Phone: Start: 03-07-2021 FUVCOVID, Provider: Carol Ann Elliott, Status: Pen, Time: 10:30 AM FUVCOVID, Provider: Carol Ann Elliott, Status: Pen, Time: 10:30 AM MP-Pulmonary Medicine-[place] 200 [place] Work Phone: Start: 03-07-2021 Patient encounter procedure FUVCOVID, Provider: [facility] RM1,[id number], Status: Pen, Time: 10:30 AM UU-Ghzymfoqpg-Agkgt ebenezer 2100 DO Work Phone: Start: 03-06-2021 ENG, Provider: Ysabel Hoang, Status: Pen, Time: 10:30 AM ENG, Provider: Ysabel Hoang, Status: Pen, Time: 10:30 AM RB-Vkzhrwkhx-Vdsmca 170 DO Work Phone: Start: 02-26-2021 NPV, Provider: Jaci Solano, Status: Pen, Time: 3:30 PM NPV, Provider: Jaci Solano, Status: Pen, Time: 3:30 PM CT-Shqnsoqhi-Thzlkr 170 DO Work Phone: Start: 02-21-2021 BOTOX, Provider: Jodie Matthews, Status: Pen, Time: 11:00 AM BOTOX, Provider: Jodie Matthews, Status: Pen, Time: 11:00 AM XM-Zmxaywimx-Ewitxb 170 DO Work Phone: Start: 02-18-2021 FUV, Provider: Rich Magana, Status: Pen, Time: 12:45 PM FUV, Provider: Rich Magana, Status: Pen, Time: 12:45 PM MI-Mksjenpeyj-Vcefk ebenezer 2100 DO Work Phone: Start: 01-28-2021 INJECTION, Provider: JASS THOMAS, Status: Pen, Time: 1:30 PM INJECTION, Provider: JASS THOMAS, Status: Pen, Time: 1:30 PM JO-Cvtfubikur-Bpkvh ebenezer 2100 DO Work Phone: Start: 2021 RSV High Risk: (Elde rly (60+) or Population) (1 - Risk 60-74 years 1-dose series) RSV High Risk: (Elderly (60+) or Population) (1 - Risk 60-74 years 1-dose series) [facility] Start: 2021 RSV patient s and/or patients aged 60+ years (1 - 1-dose 60+ series) RSV patients and/or patients aged 60+ years (1 - 1-dose 60+ series) [facility] Start: 01-15-2021 FUV, Provider: Courtney Brown, Status: Pen, Time: 11:45 AM FUV, Provider: Courtney Brown, Status: Pen, Time: 11:45 AM SA-Mqlnbcutwm-Wwkxe ebenezer 2100 DO Work Phone: Start: 01-15-2021 FUV, Provider: Rich Magana, Status: Pen, Time: 8:15 AM FUV, Provider: Rich Magana, Status: Pen, Time: 8:15 AM [facility] 200 [place] Work Phone: Start: 01-15-2021 NPV, Provider: Rich Magana, Status: Pen, Time: 8:15 AM NPV, Provider: Rich Magana, Status: Pen, Time: 8:15 AM [facility] Work Phone: Start: 01-10-2021 FUVGENERAL, Provider : Jodie Matthews, Status: Pen, Time: 11:00 AM FUVGENERAL, Provider: Jodie Matthews, Status: Pen, Time: 11:00 AM BK-Sgzyjgdhf-Umzwnm 170 DO Work Phone: Start: 12-25-2020 INJECTION, Provider: RADIO DIVISION OFFICERJASS, Status: Pen, Time: 2:30 PM INJECTION, Provider: RADIO DIVISION [id number], Status: Pen, Time: 2:30 PM DY-Puyrmpdcnb-Dgmbw ebenezer 2100 DO Work Phone: Start: 12-10-2020 FUV, Provider: Courtney Brown, Status: Pen, Time: 10:15 AM FUV, Provider: Courtney Brown, Status: Pen, Time: 10:15 AM HF-Ewiyyvhugm-Yhrre ebenezer 2100 DO Work Phone: Start: 12-06-2020 NPVCOVID, Provider: Carol Ann Elliott, Status: Pen, Time: 9:00 AM NPVCOVID, Provider: Carol Ann Elliott, Status: Pen, Time: 9:00 AM YO-Ezcgijgqi-Hbjzkz 170 DO Work Phone: Start: 11-26-2020 FUV, Provider: Courtney Brown, Status: Pen, Time: 10:45 AM FUV, Provider: Courtney Brown, Status: Pen, Time: 10:45 AM WB-Ylrqprvdyc-Plura ebenezer 2100 DO Work Phone: Start: 11-22-2020 BOTOX, Provider: Jodie Matthews, Status: Pen, Time: 11:30 AM BOTOX, Provider: Jodie Matthews, Status: Pen, Time: 11:30 AM KV-Ebimxlsocl-Haqww ebenezer 2100 DO Work Phone: Start: 11-22-2020 FUVGENERAL, Provider : Jodie Matthews, Status: Pen, Time: 11:30 AM FUVGENERAL, Provider: Jodie Matthews, Status: Pen, Time: 11:30 AM DC-Vfthmeiup-Plbsyb 170 DO Work Phone: Start: 10-30-2020 INJECTION, Provider: RADIO DIVISION OFFICERJASS, Status: Pen, Time: 2:30 PM INJECTION, Provider: RADIO DIVISION OFFICERJASS, Status: Pen, Time: 2:30 PM HY-Ornzypzgpa-Uglhe ebenezer 2100 DO Work Phone: Start: 10-30-2020 DTaP/Tdap/Td vaccine (1 - Tdap) DTaP/Tdap/Td vaccine (1 - Tdap) [place], [place] Comment on above: Postponed from 01/19 (Patient Refused) Start: 10-30-2020 Hepatitis C screening Hepatitis C sc deisy [place], [place] Comment on above: Postponed from 01/19 (Patient Refused) Start: 10-30-2020 HIV screening HIV screen [place], [place] Comment on above: Postponed from 01/19 (Patient Refused) Start: 05-07-2020 Creatinine measurement Creatinine mo nitoring [place], [place] Start: 05-07-2020 Creatinine monitoring Creatinine mon [facility] Phone: Start: 05-07-2020 Potassium monitoring Potassium monit [facility] Phone: Start: 04-09-2020 Zoster Vaccines (2 o f 2) Zoster Vaccines (2 of 2) [facility] Start: 04-06-2020 Lipid panel Lipid screen [place], [place] Start: 04-06-2020 Lipid screen Lipid screen [facility] Work Phone: Start: 03-22-2020 Creatinine monitoring Creatinine mon [place], [place] Start: 03-22-2020 Potassium monitoring Potassium monit [place], [place] Start: 02-14-2020 Peak expiratory flow rate monitoring using diary Asthma Control Flowsheet QU-Mihxigtwmf-Abdcx ake Work Phone: Start: 01-29-2020 Creatinine monitoring Creatinine mon [place], [place] Start: 01-29-2020 Potassium monitoring Potassium monit [place], [place] Start: 01-23-2020 End: 01-23-2020 Office Visit 01/23/2020 Office Visit Pulmonology Mychal Bautista MD [address] [facility] [address] [place], [place] [id number] [facility] OUTREACH PULM Start: 01-10-2020 End: 01-10-2020 Office Visit 01/10/2020 Office Visit Neurology Juan C Angelo MD [address] [facility] [address] [place] [address] [facility] Neurology Specialist Start: 01-03-2020 Influenza vaccination Flu vaccine (# 1) [place], [place] Start: 12-27-2019 Creatinine monitoring Creatinine mon [place], [place] Start: 12-27-2019 Potassium monitoring Potassium monit [place], [place] Start: 12-22-2019 Creatinine monitoring Creatinine mon [place], [place] Start: 12-22-2019 Potassium monitoring Potassium monit [place], [place] Start: 11-21-2019 Annual Wellness Visi t (AWV) Annual Wellness Visit (AWV) [place], [place] Start: 10-28-2019 DTaP/Tdap/Td vaccine (1 - Tdap) DTaP/Tdap/Td vaccine (1 - Tdap) [place], [place] Comment on above: Postponed from 01/19 (Patient Refused) Postponed from 01/19 (Patient Refused) Start: 10-28-2019 Hepatitis C screen Hepatitis C scree n [place], [place] Comment on above: Postponed from 01/19 (Patient Refused) Start: 10-28-2019 HIV screen HIV screen [place], [place] Comment on above: Postponed from 01/19 (Patient Refused) Start: 10-28-2019 Shingles Vaccine (1 of 2) Shingles Vaccine (1 of 2) [place], [place] Comment on above: Postponed from 01/19 (Unavailable) Start: 10-15-2019 Creatinine monitoring Creatinine mon itoring [place], [place] Start: 10-15-2019 Potassium monitoring Potassium monit oring [place], [place] Start: 10-13-2019 End: 10-13-2019 Office Visit 10/13/2019 Office Visit Primary Care Bertram Peters, 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 [address] [place] [address] [facility] Care [place] Start: 08-09-2019 End: 08-09-2019 Office Visit 08/09/2019 Office Visit Neurology Juan C Angelo MD [address] [facility], [address] [place] [address] [facility] Neurology Start: 07-25-2019 End: 07-25-2019 Patient encounter procedure 07/25/2019 Office Visit Pulmonology Dayton Fulton MD [address] [id number] [facility] OUTREACH PULM Start: 07-22-2019 End: 07-22-2019 Appointment 07/22/2019 Appointment Speech Therapy Jacki Rooney SLP [facility] Speech Therapy Start: 07-20-2019 End: 07-20-2019 Office Visit [facility] Neurology Comment on above: EPIDURAL STEROID INJ ECTION- C7-T1 Start: 07-18-2019 End: 07-18-2019 Office Visit 07/18/2019 Office Visit Pulmonology Mychal Bautista MD [address] [place] [address] [phone] [facility] OUTREACH PULM Start: 06-27-2019 End: 06-27-2019 Appointment 06/27/2019 Appointment Speech Therapy Jacki Rooney SLP [facility] Speech [facility] Start: 06-20-2019 End: 06-20-2019 Appointment 06/20/2019 Appointment Speech Therapy Jacki Rooney SLP [facility] Speech [facility] Start: 06-16-2019 End: 06-16-2019 Patient encounter procedure 06/16/2019 Office Visit Neurology Liliana Madrigal 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 [address] [facility] [address] [place] [address] [phone] [facility] Neurology Specialist Start: 06-13-2019 End: 06-13-2019 Appointment 06/13/2019 Appointment Speech Jacki Garber SLP [facility] Speech Therapy Start: 06-09-2019 Glaucoma screening Diabetes: R etinopathy Screening [facility] Start: 06-08-2019 End: 06-08-2019 Office Visit 06/08/2019 Office Visit Neurology Juan C Angelo MD [address] [facility], [address] [place] [address] [phone] [facility] Neurology Specialist Start: 06-07-2019 End: 06-07-2019 Patient encounter procedure 06/07/2019 Appointment Speech Jacki Garber SLP [facility] Speech [facility] Start: 06-06-2019 End: 06-06-2019 Patient encounter procedure 06/06/2019 Office Visit Neurology Liliana Madrigal 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 [address] [facility] [address] [place] [address] [phone] [facility] Neurology Specialist Start: 05-23-2019 End: 05-23-2019 Patient encounter procedure 05/23/2019 Office Visit Pulmonology Mychal Bautista MD [address] [place], [place] [id number] [facility] OUTREACH PULM Start: 04-21-2019 End: 04-21-2019 Office Visit 04/21/2019 Office Visit Pulmonology Pa Patel MD [address] [address] [phone] Specialist Outreach [place] Start: 04-19-2019 End: 04-19-2019 Appointment 04/19/2019 Appointment Pulmonary Function [facility] Start: 04-14-2019 End: 04-14-2019 Office Visit 04/14/2019 Office Visit Neurology Liliana Madrigal 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 [address] [address] [phone] [facility] Neurology Specialist Start: 04-13-2019 End: 04-13-2019 Office Visit 04/13/2019 Office Visit Primary Care Oni Gr 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 [facility] [place] [address] [phone] [facility] Primary Care [place] Start: 04-06-2019 End: 04-06-2019 Appointment 04/06/2019 Appointment Radiology [facility] CT Scan Start: 04-01-2019 End: 04-01-2019 Hospital Encounter [facility] Comment on above: BRONCHOSCOPY Start: 03-28-2019 End: 03-28-2019 Office Visit 03/28/2019 Office Visit Pulmonology Dayton Fulton MD [address] [address] [phone] Specialist Outreach [place] Start: 03-24-2019 End: 03-24-2019 Appointment 03/24/2019 Appointment Pulmonary Function Testing [facility] PFT Start: 03-23-2019 End: 03-23-2019 Appointment 03/23/2019 Appointment Sleep Center [facility] Sleep [facility] Start: 03-15-2019 End: 03-15-2019 Appointment 03/15/2019 Appointment Pulmonary Function Testing [facility] PFT Start: 03-14-2019 End: 03-14-2019 Office Visit 03/14/2019 Office Visit Neurology Liliana Madrigal 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 [address] [address] [phone] [facility] Neurology Specialist Start: 03-03-2019 End: 03-03-2019 Office Visit 03/03/2019 Office Visit Pulmonology Pa Patel MD [address] [facility] [address] [place], [place] [id number] Specialist Outreach [place] Start: 02-09-2019 End: 02-09-2019 Appointment 02/09/2019 Appointment Sleep Center [facility] Start: 02-02-2019 End: 02-02-2019 Procedure visit 02/02/2019 Procedure visit Urology Aditya Livingston MD [address] [place] [address] [facility] Start: 02-01-2019 End: 02-01-2019 Procedure visit 02/01/2019 Procedure visit Urology Agueda Cason, 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 [address] [facility] [address] [place] [address] [facility] Start: 01-31-2019 End: 01-31-2019 Appointment 01/31/2019 Appointment Pulmonary Function Testing [facility] P[facility] Start: 01-25-2019 End: 01-25-2019 Office Visit 01/25/2019 Office Visit Neurology Liliana Madrigal, 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 [address] [facility] [address] [place] [address] [phone] [facility] Neurology Specialist Start: 01-24-2019 End: 01-24-2019 Office Visit 01/24/2019 Office Visit Pulmonology Dayton Fulton MD [address] [facility] [address] [place], [place] [id number] Specialist Outreach [place] Start: 01-20-2019 End: 01-20-2019 Appointment 01/20/2019 Appointment Physical Therapy Wei Aguirre PTA [facility] Physical Therapy Start: 01-17-2019 End: 01-17-2019 Appointment [facility] Physical Therapy Start: 01-13-2019 End: 01-13-2019 Procedure visit 01/13/2019 Procedure visit Urology Aditya Livingston MD [address] [place] [phone] [facility] Start: 01-13-2019 End: 01-13-2019 Appointment 01/13/2019 Appointment Physical Therapy Kodi Mancia, ADARSH [facility] Physical Therapy Start: 01-12-2019 End: 01-12-2019 Office Visit 01/12/2019 Office Visit Primary Care Oni Gr, 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 [address] [place] [address] [phone] [facility] Start: 01-11-2019 End: 01-11-2019 Procedure visit [facility] Start: 01-02-2019 Influenza vaccination Flu vaccine (# 1) [place], [place] Start: 12-31-2018 End: 12-31-2018 Appointment 12/31/2018 Appointment Physical Therapy Wei Aguirre PTA [facility] Physical Therapy Start: 12-30-2018 End: 12-30-2018 Procedure visit [facility] Start: 12-28-2018 End: 12-28-2018 Procedure visit [facility] Start: 12-27-2018 End: 12-27-2018 Office Visit 12/27/2018 Office Visit Oncology Ruth Farah MD [address] [place] [address] [facility] Start: 12-24-2018 End: 12-24-2018 Appointment 12/24/2018 Appointment Physical Therapy Silvia Lenz, ADARSH [facility] Physical Therapy Start: 12-23-2018 End: 12-23-2018 Office Visit 12/23/2018 Office Visit Neurology Juan C Angelo MD [address] [facility], [address] [place] [address] [facility] Neurology Specialist Start: 12-22-2018 End: 12-22-2018 Office Visit [facility] Primary [facility] Start: 12-21-2018 End: 12-21-2018 Appointment [facility] Start: 12-20-2018 End: 12-20-2018 Appointment 12/20/2018 Appointment Physical Therapy Kaya Cancino, [employer] [facility] Physical Therapy Start: 12-17-2018 End: 12-17-2018 Appointment 12/17/2018 Appointment Physical Therapy Kodi Mancia, PT [facility] Physical Therapy Start: 12-16-2018 End: 12-16-2018 Office Visit [facility] Start: 12-15-2018 End: 12-15-2018 [facility] Start: 12-14-2018 End: 12-14-2018 Appointment 12/14/2018 Appointment Physical Therapy Kodi Mancia, PT [facility] Physical Therapy Start: 12-13-2018 End: 12-13-2018 Office Visit [facility] Start: 06-09-2018 Glaucoma screening Diabetes: R etinopathy Screening [facility] Start: 2011 Colon cancer screen colonoscopy Colon cancer screen colonoscopy [place], [place] Start: 2011 Screening for malign ant neoplasm of colon Colon cancer screen colonoscopy [place], [place] Start: 2011 Shingles Vaccine (1 of 2) Shingles Vaccine (1 of 2) [place], [place] Start: 2001 Diabetes screen Diabetes screen [place], [place] Start: 01-20-1980 Urine screening for protein Diabetes: Urine Protein Screening [facility] Start: 1979 Diabetes mellitus screening Diabetes Screening [facility] Start: 1979 [facility]atitis C [facility] Start: 1977 COVID-19 Vaccine (1) COVID-19 Vaccin e (1) [facility] Work Phone: Start: 1971 Diabetic foot examination Diabetes: Foot Exam [facility] Start: 1962 MMR Vaccines (1 of 1 - Standard series) MMR Vaccines (1 of 1 - Standard series) [facility] Start: 1961 Hemoglobin A1c measurement Diabetes: Hemoglobin A1C [facility] Start: 1961 HIV screening [facility] Start: 1961 Lipid panel Lipid Panel [facility] Start: 1961 Medicare Annual Wellness Visit Medicare Annual Wellness Visit (AWV) [facility] Start: 1961 Screening for malign ant neoplasm of colon [facility] Start: 1961 Urine screening for protein Diabetes: Urine Protein Screening [facility] Acid Fast [facility] Wi [facility] Comment on above: ONE TIME for 1 Occur rences starting 04/01/2019 End: 04-15-2023 Bacteria identified in Unspecified specimen by Respiratory culture Respiratory Culture/Smear Microbiology Routine 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 Occurrences starting 04/08/2023 until 04/15/2023 [facility] Work Phone: Comment on above: 4 Occurrences starti ng 04/08/2023 until 04/15/2023 Bacteria identified in Urine by Culture [facility] Bacteria identified Respiratory culture Nom (Sput) Sputum Culture Microbiology Routine Pneumonia of right middle lobe due to infectious organism (HCC) 03/25/2019 9:09 AM EST [place], [place] Comprehensive metabo lic 2000 panel - Serum or Plasma [facility] Comprehensive metabo lic 1999 panel - Serum or Plasma [facility] Comprehensive metabo lic 1999 panel - Serum or Plasma [facility] Comprehensive metabo lic 1999 panel - Serum or Plasma [facility] Comprehensive metabo lic 1999 panel - Serum or Plasma [facility] Comprehensive metabo lic 1999 panel - Serum or Plasma [facility] Comprehensive metabo lic 2000 panel - Serum or Plasma Comprehensive metabolic panel Lab Routine 03/03/2024 2:30 PM EDT [facility] Work Phone: Comprehensive metabo lic 2000 panel - Serum or Plasma Comprehensive metabolic panel Lab Routine 05/27/2024 1:10 PM EST [employer] Work Phone: Comprehensive metabo lic 2000 panel - Serum or Plasma [facility] Comprehensive metabo lic 2000 panel - Serum or Plasma Comprehensive metabolic panel Lab Routine 09/13/2024 9:48 AM EDT [employer] Work Phone: End: 12-08-2019 COVID-19 Ambulatory COVID-19 Ambulatory Lab Routine Chronic obstructive pulmonary disease, unspecified COPD type (HCC) 1 Occurrences starting 12/08/2019 until 12/08/2019 [facility] on above: 1 Occurrences starti ng 12/08/2019 until 12/08/2019 COVID-19 Ambulatory COVID-19 Amb ulatory Lab Routine Chronic obstructive pulmonary disease, unspecified COPD type (HCC) 12/08/2019 12:47 PM EDT [place], [place] End: 12-26-2018 Culture Blood #1 Culture Blood #1 Microbiology STAT One Time for 1 Occurrences starting 12/26/2018 until 12/26/2018 [place] Comment on above: One Time for 1 Occur rences starting 12/26/2018 until 12/26/2018 Culture Blood #1 Culture Blood # 1 Microbiology STAT 12/26/2018 12:55 PM EDT [place], [place] End: 12-26-2018 Culture blood #2 Culture blood #2 Microbiology STAT One Time for 1 Occurrences starting 12/26/2018 until 12/26/2018 [place] Comment on above: One Time for 1 Occur rences starting 12/26/2018 until 12/26/2018 Culture blood #2 Culture blood # 2 Microbiology STAT 12/26/2018 2:40 PM EDT [place] Culture, Viral Respiratory [place] Comment on above: ONE TIME for 1 Occur rences starting 04/01/2019 Cytology, Non-Workers Compensation Adjuster [place], [place] Comment on above: ONE TIME for 1 Occur rences starting 04/01/2019 EKG 12 [place] Ferritin [Mass/volum e] in Serum or Plasma [facility] Work Phone: Ferritin [Mass/volum e] in Serum or Plasma [facility] Ferritin [Mass/volum e] in Serum or Plasma [facility] Fungus Culture [place] Comment on above: ONE TIME for 1 Occur rences starting 04/01/2019 Gastrin [Mass/volume ] in Serum or Plasma [facility] Work Phone: HHN Treatment HHN Treatment Respiratory Care Routine 0600, 1000, 1400, 1800, 2200 until discontinued starting 12/26/2018 [place], [place] Comment on above: 0600, 1000, 1400, [...] dehydrogenas e [Enzymatic activity/volume] in Unspecified specimen [facility] Microbial culture of sputum [facility] Nasal Cannula Oxygen Nasal Cannu la Oxygen Respiratory Care STAT Daily until discontinued starting 12/26/2018, 1 completed [facility] Comment on above: Daily until disconti nued starting 12/26/2018, 1 completed Parietal cell Ab [Units/volume] in Serum [facility] Work Phone: Patient Education [facility] Work Phone: Patient referral [facility] Work Phone: Respiratory Culture [facility] Comment on above: ONE TIME for 1 Occur rences starting 04/01/2019 End: 04-01-2019 Surgical Pathology Surgical Pathology Lab Routine Once for 1 Occurrences starting 04/01/2019 until 04/01/2019 [facility] Comment on above: Once for 1 Occurrenc es starting 04/01/2019 until 04/01/2019 XR Chest 2 Views [facility] XR Chest 2 Views [facility] Fasenra 30 MG/ML Subcutaneous Solution Prefilled Syringe Ordered: 07-Sep-2018 Held Gretchen peterson Work Phone: [facility] NEGATED: Highlighted row has been ruled out! Planned Goals not documented [facility] Work Phone: Immunizations Immunization Date Immunization Notes Care Provider Fa cilikasie 02-04-2024 influenza, seasonal, injectable, preservative free MD Rachel Rayo Work Phone: [facility] 04-14-2022 influenza, injectabl e, quadrivalent, contains preservative Rachel Rayo Work Phone: -Pulmonary Medicine-[facility] [address] [place] Work Phone: Comment on above: Series: 04-14-2022 influenza, injectabl e, quadrivalent, preservative free [address] Work Phone: 04-14-2022 influenza virus vacc ine, unspecified formulation [address] Work Phone: 04-05-2022 tetanus toxoid, redu flako diphtheria toxoid, and acellular pertussis vaccine, adsorbed MD Rachel Rayo Work Phone: [facility] 08-03-2021 Comirnaty 30 MCG/0.3 ML Intramuscular Suspension Rachel Rayo Work Phone: [facility] Work Phone: 08-03-2021 SARS-CoV-2 mRNA (qfhlagfqsyb-riuw-vkwhvy e) vaccine Elizabeth CHAUDHRY [facility] 06-20-2021 Pfizer-BioNTech COVI D-19 Vacc 30 MCG/0.3ML Intramuscular Suspension Rachel Rayo Work Phone: [facility] 12-10-2020 pneumococcal polysaccharide vaccine, 23 valent; Translations: [Pneumovax 23 25 MCG/0.5ML Injection Injectable] Rachel Rayo Work Phone: [facility] Comment on above: Series: 02-13-2020 zoster vaccine recombinant Rachel Rayo Work Phone: [facility] 01-16-2020 influenza virus vacc ine, unspecified formulation Elizabeth CHAUDHRY [facility] 01-16-2020 influenza, injectabl e, quadrivalent, preservative free Rachel Rayo Work Phone: [address] Work Phone: 10-31-2019 zoster recombinant adjuvanted vaccine (SHINGRIX) 50 MCG/0.5ML SUSR injection [facility], [place] 03-04-2019 influenza virus vacc ine, unspecified formulation Elizabeth CHAUDHRY [facility] 03-04-2019 influenza, injectabl e, quadrivalent, preservative free [facility] Work Phone: 02-05-2018 influenza virus vacc ine, unspecified formulation Elizabeth CHAUDHRY [facility] 02-05-2018 influenza, injectabl e, quadrivalent, preservative free Wei Aguirre [facility] [place] 05-04-2017 influenza virus vacc ine, unspecified formulation Wei Aguirre [facility] 05-04-2017 influenza, injectabl e, quadrivalent, contains preservative [facility] Work Phone: 05-04-2017 influenza, seasonal, injectable Rachel Amador Rayo Work Phone: [address] Work Phone: 05-04-2017 pneumococcal polysaccharide vaccine, 23 valent Wei Aguirre [facility] Payers Date Payer Category Payer Unknown 2022 Medicare [facility] MEDICARE ANTH MEDICARE ADVANTAGE [id number] 2022-Present [id number] [place] [address] [id number]. [id number] 2022 Medicare (Managed Care) 1.2. [id number]. [id number] 2022 Self-pay [id number] 2014 Unknown [employer] xxxxxxxxxx 2014-Present [phone] [address] [address] [place] [address] xxxxxxxxxx [id number]. [id number] 2014 Unknown [id number] 1961 Unknown [id number] 2.16.840.1.723787.3.579.2. 647 1961 Unknown [id number] 2.16.840.1.543338.3.579.2. 175 1961 Unknown [id number] 2.16.840.1.396740.3.579.2. 1068 1961 Unknown [id number] 2.16.840.1.518464.3.579.2. 1068 1961 Unknown [id number] 2.16.840.1.419647.3.579.2. 1069 1961 Unknown [id number] 2.16.840.1.408767.3.579.2. 593 1961 Unknown [id number] 2.16.840.1.777230.3.579.2. 593 1961 Unknown [id number] 2.16.840.1.277866.3.579.2. 593 1961 Unknown [id number] 2.16.840.1.338905.3.579.2. 593 1961 Unknown [id number] 2.16.840.1.140087.3.579.2. 593 1961 Unknown [id number] 2.16.840.1.729489.3.579.2. 593 1961 Unknown [id number] 2.16.840.1.555947.3.579.2. 593 1961 Unknown [id number] 2.16.840.1.118116.3.579.2. 593 1961 Unknown [id number] 2.16.840.1.068871.3.579.2. 593 1961 Unknown [id number] 2.16.840.1.295314.3.579.2. 593 1961 Unknown [id number] 2.16.840.1.611446.3.579.2. 593 1961 Unknown [id number] 2.16.840.1.176142.3.579.2. 593 1961 Unknown [id number] 2.16.840.1.775126.3.579.2. 593 1961 Unknown [id number] 2.16.840.1.546608.3.579.2. 593 1961 Unknown [id number] 2.16.840.1.626112.3.579.2. 593 1961 Unknown [id number] 2.16.840.1.321556.3.579.2. 593 1961 Unknown [id number] 2.16.840.1.318546.3.579.2. 593 1961 Unknown [id number] 2.16.840.1.733133.3.579.2. 593 1961 Unknown [id number] 2.16.840.1.822323.3.579.2. 593 1961 Unknown [id number] 2.16.840.1.791775.3.579.2. 593 1961 Unknown [id number] 2.16.840.1.852612.3.579.2. 593 1961 Unknown [id number] 2.16.840.1.406085.3.579.2. 593 1961 Unknown [id number] 2.16.840.1.812044.3.579.2. 593 1961 Unknown [id number] 2.16.840.1.693253.3.579.2. 593 1961 Unknown [id number] 2.16.840.1.286772.3.579.2. 593 1961 Unknown [id number] 2.16.840.1.674159.3.579.2. 593 1961 Unknown [id number] 2.16.840.1.909871.3.579.2. 593 1961 Unknown [id number] 2.16.840.1.130904.3.579.2. 593 1961 Unknown [id number] 2.16.840.1.779990.3.579.2. 356 1961 Unknown [id number] 2.16.840.1.267344.3.579.2. 356 1961 Unknown [id number] 2.16.840.1.846412.3.579.2. 356 1961 Unknown [id number] 2.16.840.1.133754.3.579.2. 356 1961 Unknown [id number] 2.16.840.1.304769.3.579.2. 356 1961 Unknown [id number] 2.16.840.1.494254.3.579.2. 356 1961 Unknown [id number] 2.16.840.1.401282.3.579.2. 356 1961 Unknown [id number] 2.16.840.1.781102.3.579.2. 356 1961 Unknown [id number] 2.16.840.1.733127.3.579.2. 356 1961 Unknown [id number] 2.16.840.1.966902.3.579.2. 356 1961 Unknown [id number] 2.16.840.1.881522.3.579.2. 1961 Unknown [id number] 2.16.840.1.921173.3.579.2. 1961 Unknown [id number] 2.16.840.1.517043.3.579.2. 1961 Unknown [id number] 2.16.840.1.755298.3.579.2. 1961 Unknown [id number] 2.16.840.1.693219.3.579.2. 1961 Unknown [id number] 2.16.840.1.026020.3.579.2. 1961 Unknown [id number] 2.16.840.1.125875.3.579.2. 1961 Unknown [id number] 2.16.840.1.565051.3.579.2. 1961 Unknown [id number] 2.16.840.1.244471.3.579.2. 1961 Unknown [id number] 2.16.840.1.646678.3.579.2. 1961 Unknown [id number] 2.16.840.1.318365.3.579.2. 1961 Unknown [id number] 2.16.840.1.744043.3.579.2. 1961 Unknown [id number] 2.16.840.1.840421.3.579.2. 1961 Unknown [id number] 2.16.840.1.293154.3.579.2. 1961 Unknown [id number] 2.16.840.1.396436.3.579.2. 1961 Unknown [id number] 2.16.840.1.561472.3.579.2. 356 1961 Unknown [id number] 2.16.840.1.135017.3.579.2. 1245 1961 Unknown [id number] 2.16.840.1.563696.3.579.2. 1241 1961 Unknown [id number] 2.16.840.1.819392.3.579.2. 1241 1961 Unknown [id number] 2.16.840.1.511684.3.579.2. 1241 1961 Unknown [id number] 2.16.840.1.326976.3.579.2. 1241 1961 Unknown [id number] 2.840.1.922836.3.579.2. 1244 1961 Unknown [id number] 2.16840.1.933383.3.579.2. 1243 1961 Unknown [id number] 2.840.1.919537.3.579.2. 1243 1961 Unknown [id number] 2.840.1.785489.3.579.2. 1243 1961 Unknown [id number] 2.840.1.199046.3.579.2. 1243 1961 Unknown [id number] 2.16840.1.188758.3.579.2. 1243 1961 Unknown [id number] 2.16.840.1.694722.3.579.2. 1243 1961 Unknown [id number] 2.16.840.1.243513.3.579.2. 1243 1961 Unknown [id number] 2.16840.1.622958.3.579.2. 1243 1961 Unknown [id number] 2.16.840.1.402295.3.579.2. 1244 1961 Unknown [id number] 2.16.840.1.023129.3.579.2. 1243 1961 Unknown [id number] 2.16.840.1.173967.3.579.2. 1243 1961 Unknown [id number] 2.16.840.1.348464.3.579.2. 1243 1961 Unknown [id number] 2.16.840.1.395498.3.579.2. 1243 1961 Unknown [id number] 2.16.840.1.502393.3.579.2. 1243 1961 Unknown [id number] 2.16.840.1.162973.3.579.2. 1243 1961 Unknown [id number] 2.16.840.1.519737.3.579.2. 1961 Unknown [id number] 2.16.840.1.296005.3.579.2. 1961 Unknown [id number] 2.16.840.1.324238.3.579.2. 1961 Unknown [id number] 2.16.840.1.510768.3.579.2. 1961 Unknown [id number] 2.16.840.1.366808.3.579.2. 1961 Unknown [id number] 2.16.840.1.892630.3.579.2. 1961 Unknown [id number] 2.16.840.1.972616.3.579.2. 1961 Unknown [id number] 2.16.840.1.475885.3.579.2. 72 1961 Unknown [id number] 2.16.840.1.609918.3.579.2. 727 1961 Unknown [id number] 2.16.840.1.937904.3.579.2. 727 1961 Unknown [id number] 2.16.840.1.201223.3.579.2. 727 1959 Medicare [id number] 1.2.840.205448.1.13.239.2. 7.3.485745.315 1959 Self-pay [id number] [facility] [id number] Unknown [id number] Unknown [id number] Unknown [id number] Unknown HCAP/HFA/FAP Active [id number] Unknown [id number] 2.16.840.1.057123.3.579.2. 531 Unknown [id number] 2.16.840.1.345665.3.579.2. 531 Unknown [id number] 2.16.840.1.806694.3.579.2. 531 Unknown [id number] 2.16.840.1.243234.3.579.2. 531 Social History Date Type Detail Facility Start: 12-10-2018 End: 09-01-2023 Tobacco smoking status OHIS Never smoker [facility] Start: 12-10-2018 End: 07-24-2024 Alcohol intake Not Currently [facility] Start: 1960 [facility]igned [facility] Start: 03-24-2019 End: 05-23-2019 Alcohol intake Ex-drinker (finding) [facility] Start: 12-08-2019 End: 02-09-2023 Tobacco use and exposure Never used [facility] Start: 02-06-2023 End: 09-12-2024 Exposure to SARS-CoV-2 (event) Not sure [facility] Start: 02-26-2023 End: 07-24-2024 Marital History - Marital History - [facility] Comment on above: retired; Start: 1960 Sex Assigned At Male F [facility] Tobacco smoking status Never [facility] Start: 02-09-2023 End: 09-13-2024 Alcohol intake Lifetime non-drinker (finding) [facility] Work Phone: Start: 10-17-2023 End: 10-17-2023 Tobacco smoking status NHIS Unknown if ever smoked [facility] Has the [employer], [employer]), oil, or water company threatened to shut off services in your home in past 12Mo Yes [facility] Work Phone: Are you now , , , , never or living with a partner? [facility] Work Phone: How often to you hav e a drink containing alcohol? Never [facility] Work Phone: How hard is it for y ou to pay for the very basics like food, housing, medical care, and heating Very hard [facility] Work Phone: Do you feel stress - tense, restless, nervous, or anxious, or unable to sleep at night because your mind is troubled all the time - these days [OSQ] Very much [facility] Work Phone: (I/We) worried lucio er (my/our) food would run out before (I/we) got money to buy more. Often true [facility] Work Phone: At any time in the past 12 months, were you homeless or living in penitentiary [including now]? No [facility] Work Phone: Start: 02-14-2015 End: 05-31-2024 Sex Male (finding) [facility] Do you feel stress - tense, restless, nervous, or anxious, or unable to sleep at night because your mind is troubled all the time - these days [OSQ] To some extent [facility] Work Phone: How often do you nee d to have someone help you when you read instructions, pamphlets, or other written material from your doctor or pharmacy [SILS] Sometimes [facility] Sexual Orientation [facility] NEGATED: Highlighted row - - GY-Yxikftgidw-Nsjsfi Work Phone: Goals Date Patient Goal Desired Activity /State Functional Status Date Assessment Result Facility 09-12-2024 Patient Health Questionnaire 2 item (PHQ-2) [Reported] [facility] Work Phone: 08-10-2024 Patient Health Questionnaire 2 item (PHQ-2) [Reported] [facility] Work Phone: 08-10-2024 PHQ-9 quick depressi on assessment panel [Reported.PHQ] [facility] Work Phone: 07-06-2024 Functional Status N/A [facility] 05-09-2024 Functional Status N/A [facility] 01-18-2024 Functional Status N/A [facility] 12-29-2023 Functional Status N/A [facility] 12-04-2023 Functional Status N/A [facility] 09-01-2023 Functional Status N/A [facility] 07-08-2023 Functional Status N/A [facility] 04-08-2023 Functional Status N/A [facility] 2023 Functional Status N/A [facility] 12-24-2022 Functional Status N/A [facility] 11-27-2022 Functional Status N/A [facility] 11-11-2022 Functional Status N/A [facility] 10-29-2022 Functional Status N/A [facility] 08-07-2022 Functional Status N/A [facility] 05-19-2022 Functional Status N/A [facility] 07-30-2021 Functional status Patient at Baseline [facility] Work Phone: [facility] Work Phone: NEGATED: Highlighted row Functional performance Functional status health issues are not documented Disease ZR-Kpqdnntiqz-Iiuqws Work Phone: Mental Status Date Assessment Result Facility 07-30-2021 Cognitive function Cognitive Sta tus Patient at Baseline [facility] Work Phone: NEGATED: Highlighted row Cognitive function [Interpretation] Cognitive status health issues are not documented Disease XY-Radvsqbqwl-Pmpkai Work Phone: Clinical Notes 01-03-2017 to 09-14-2024 [...] infusion. I will recheck his potassium today. 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 He is doing well but is having some issues with access. I would like to try to find a company that can do training for subcu infusions. His last IgG level was normal. [facility] Work Phone: 09-14-2024 Miscellaneous Notes Associated Problem(s): Hypokalemia He recently received potassium in the ED following an IVIg infusion. I will recheck his potassium today. 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 He is doing well but is having some issues with access. I would like to try to find a company that can do training for subcu infusions. His last IgG level was normal. documented in this encounter [facility] Work Phone: 09-13-2024 History of Present illness [...] MD. He does not follow with a bread jockey. Patient states he takes Hiprex for bladder issues. Patient continues Gamunex-C infusions at [facility]. He states he had a vein blow during his infusion after the tech tried several access points. His hand was tried but he was subsequently wheeled to the ED where they were able to use it. His last IgG was done in Jun or July at [facility]. He reports he was sick for 1.5 weeks due to lung issues. He was supposed to have a PFT with walking yesterday at [facility]. He had to cancel it because he [...] antibody deficiency (Multi) Currently on Gamunex-C at [facility]. He is doing well but is having [...] discussion and plan. documented in this encounter [facility] Work Phone: 09-13-2024 Instructions Ingrid Parker - 09/13/2024 12:15 PM EDT Have blood work to recheck potassium level. I will follow up with you with results and further recommendations. Continue azithromycin. Continue Tezspire. Continue IV Gamunex-C infusions until we switch to subcu when available. documented in this encounter [facility] Work Phone: 09-12-2024 Evaluation + Plan note Associated Problem(s): Dizziness Orders: Follow Up In Neurology; Future [facility] Work Phone: 09-12-2024 Evaluation + Plan note Associated Problem(s): Chronic migraine without aura without status migrainosus, not intractable Orders: Follow Up In Neurology; Future [facility] Work Phone: 09-12-2024 Evaluation + Plan note Associated Problem(s): Migraines Orders: Follow Up In Neurology; Future ketorolac (Toradol) injection 60 mg ketorolac (Toradol) 10 mg tablet; Take 1 tablet (10 mg) by mouth every 6 hours for 5 days. [facility] Work Phone: 09-12-2024 History of Present illness [...] and Thursday, Disp: 12 tablet, Rfl: 5 zggaqkwhcf-qwcnbbas-vqwaiqdwkg (Breztri Aerosphere) 160-9-4.8 mcg/actuation HFA aerosol inhaler, [...] early in the course. Chocolate Flavor Headache Bethel Headache Diltiazem Other Other Unknown Iv contrast dye Goshen Oil Unknown Ciprofloxacin Swelling and Rash Rash, [...] 11/30/2023 ALT 13 11/30/2023 MG 2.24 07/23/2018 [id number] 554 06/03/2021 [id number] 43 07/06/2017 TSH 1.48 [...] and Behavioral Health Services: [facility] Address: [address] [address], [place] [address] You received Toradol (ketorolac) today for your [...] medication, stop & send a message via ViS, or call the next business day. Keep [...] encounter. CARSON Montez documented in this encounter [facility] Work Phone: 09-12-2024 Instructions CARSON Montez - 09/12/2024 2:00 PM EDT Dear Velia, Thank you for coming to [facility]. It was a pleasure caring for you today. The best way to contact me for medication refills or questions about your care is through ViS. Otherwise, you can contact the office by phone: . CARSON Montez PLAN: For migraines, continue current medication regimen of Botox every 90 days, every 21-day Emgality, and migraine rescue with sumatriptan pills/ injection. Please call to establish with [facility] for psychiatric care/counseling: [facility] Counseling and Behavioral Health Services: [facility] Address: [address] [place] [address], [place] [address] You received Toradol (ketorolac) today for your [...] medication, stop & send a message via ViS, or call the next business day. Keep next Botox appointment 11/09/2024 Follow up with me in 6 months, sooner if needed documented in this encounter [facility] Work Phone: 09-12-2024 Miscellaneous Notes Associated Problem(s): [...] for 5 days. documented in this encounter [facility] Work Phone: 08-17-2024 Evaluation + Plan note Associated Problem(s): Post-acute sequelae of COVID-19 (PASC) 08/2024: brain fog, fatigue, poor sleep, shortness of breath, voice changes, anxiety and depression, musculoskeletal pain, deconditioning, taste changes -[facility] Assistant smartphone osorio by the [place] -continue close follow up with your specialists and their recommendations -consider virtual Occupational Therapy for Long COVID related fatigue and brain fog -consider restarting Physical Therapy 02/2023: brain fog, fatigue, poor sleep, shortness of breath, voice changes, anxiety and depression, musculoskeletal pain, deconditioning, taste changes -re-ordered PT, OT, and [employer] for deconditioning and vocal cord dysfunction. Printed [...] with Dr. Good -follow-up on referral to [employer] to address vocal cord dysfunction noted by ENT -referral to Physical Therapy and Occupational Therapy specifically for Long-COVID related symptoms including brain fog, fatigue, weakness management. 08/2022: Cognitive and memory changes, fatigue, insomnia, shortness of breath, cough, anxiety, depression, musculoskeletal pain, weakness -proceed with aquatherapy at [facility] as ordered by your orthopedic surgeon, after [...] PCP's referral to Psychology for Therapy at [facility], please let me know if you would [...] from immunology to get second COVID vaccine [facility] Work Phone: 08-17-2024 Miscellaneous Notes Associated Problem(s): Post-acute sequelae of COVID-19 (PASC) 08/2024: brain fog, fatigue, poor sleep, shortness of breath, voice changes, anxiety and depression, musculoskeletal pain, deconditioning, taste changes -[facility] Assistant smartphone osorio by the [place] -continue close follow up with your specialists and their recommendations -consider virtual Occupational Therapy for Long COVID related fatigue and brain fog -consider restarting Physical Therapy 02/2023: brain fog, fatigue, poor sleep, shortness of breath, voice changes, anxiety and depression, musculoskeletal pain, deconditioning, taste changes -re-ordered PT, OT, and [employer] for deconditioning and vocal cord dysfunction. Printed [...] with Dr. Good -follow-up on referral to [employer] to address vocal cord dysfunction noted by ENT -referral to Physical Therapy and Occupational Therapy specifically for Long-COVID related symptoms including brain fog, fatigue, weakness management. 08/2022: Cognitive and memory changes, fatigue, insomnia, shortness of breath, cough, anxiety, depression, musculoskeletal pain, weakness -proceed with aquatherapy at [facility] as ordered by your orthopedic surgeon, after [...] PCP's referral to Psychology for Therapy at [facility], please let me know if you would [...] second COVID vaccine documented in this encounter [facility] Work Phone: 08-17-2024 History of Present illness Narrative Images from the original note were not included. FUV Virtual The virtual visit conducted with Audio and Video. Verbal consent was given for the following virtual visit, patient is currently located in [place]. All issues discussed and addressed below were done so without a physical examination. If it was felt the patient needed be seen in clinic in person they were directed there. Covid-19 infection date: July 2020 (sx: cough, SOB, fever - hospitalized at [facility] and treatd with Remdesivir, Decadron, Antibiotics, was on supplemental O2 for 10 days following hospitalization) Covid-19 vaccine status: Pfizer 02/2021, 08/2021, 06/2022 Occupation: retired Current Care Providers: PCP Dr. Rayo, Pulmonary Dr. Magana, Immunology Dr. Brown, Neurology Dr. Matthews and Dr. Miller, Pain Management Dr. Jiménez, Cardiology Dr. Park, ENT Dr. 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 -10/2023 concussion clinic evaluation due to head injury in September, recommends rest and limit screen time -12/2023 Pulmonary for chronic fibrotic changes post COVID pna and chronic asthma, recommends follow up with oncology on unexplained weight loss, continue current inhalers and add budesonide as needed -12/2023 Neurology for migraine management, continue Botox and Aimovig -01/2024 Pain Management [facility], continue current medications and as needed epidural [...] and Thursday, Disp: 12 tablet, Rfl: 5 vkgkpjlbvc-wlbpwjut-xartswwhvj (Breztri Aerosphere) 160-9-4.8 mcg/actuation HFA aerosol inhaler, [...] depression, musculoskeletal pain, deconditioning, taste changes -[facility] Assistant smartphone osorio by the [place] -continue close follow up with your specialists and their recommendations -consider virtual Occupational Therapy for Long COVID related fatigue and brain fog -consider restarting Physical Therapy 02/2023: brain fog, fatigue, poor sleep, shortness of breath, voice changes, anxiety and depression, musculoskeletal pain, deconditioning, taste changes -re-ordered PT, OT, and [employer] for deconditioning and vocal cord dysfunction. Printed [...] with Dr. Good -follow-up on referral to [employer] to address vocal cord dysfunction noted by ENT -referral to Physical Therapy and Occupational Therapy specifically for Long-COVID related symptoms including brain fog, fatigue, weakness management. 08/2022: Cognitive and memory changes, fatigue, insomnia, shortness of breath, cough, anxiety, depression, musculoskeletal pain, weakness -proceed with aquatherapy at [facility] as ordered by your orthopedic surgeon, after [...] PCP's referral to Psychology for Therapy at [facility], please let me know if you would [...] second COVID vaccine documented in this encounter [facility] Work Phone: 08-17-2024 Instructions CARSON Palacios - 08/17/2024 10:30 AM EDT It was my pleasure seeing you in the [facility] Recovery Clinic today. We will focus on addressing the following symptoms discussed today: brain fog, fatigue, poor sleep, shortness of breath, voice changes, anxiety and depression, musculoskeletal pain, deconditioning, taste changes My recommendations are as follows: -[facility] Assistant smartphone osorio by the [place] -continue close follow up with your specialists [...] information to be found on this here: http://www.[email or web address]/stwqzj-bbun-ps te/Documents/post_covid-19_fatigu e.pdf --use the attention beam strategy [...] Thinking Changes after COVID-19 here: https://www.hospitals.org/Healt h-Talks/articles//managing -jjwljri-wzq-ufwyidvg-changes-aft er-covid-19 --You can also find many helpful tips and tricks in this book: The Long COVID self-help guide, practical ways to manage symptoms by The Specialists from the [facility] [place] --additional apps, books, and podcasts for patients suffering from Long COVID can be found at https://www.[facility] [place] [facility]/health wellness/public-health/long-covid /gxyl-ldaxt-ywcj-books-podcasts/ To help improve sleep: --try Melatonin children's [...] -Mind-Body and Stress Managements tools include acupuncture, pharmacy customer care specialist, yoga, meditation, psychotherapy Please return to COVID Recovery Clinic in 6 months, call [phone] or send a message through your ViS osorio if needed. If you are interested in joining a clinical trial, look into the following resources: https://clinicaltrials.gov/ https://trials.recovercovid.org/ https://longcovidalliance.org/res [facility]/clinical-trials/ documented in this encounter [facility] Work Phone: 08-10-2024 History of Present illness [...] have difficulty swallowing. documented in this encounter [facility] Work Phone: 08-10-2024 Instructions Nahomi Ramírez MA [...] any overuse cycle. documented in this encounter [facility] Work Phone: 07-25-2024 History of Present illness [...] I also filled out a form for [employer] to hopefully maintain utilities if there is [...] outlined that he has been hospitalized at [facility] the month before with asthma and COPD. [...] after the accident he was checked at [facility]. On April 13, 2024 it was noted [...] namely Tezspire. He previously has been on [employer] as well as Fasenra. His pulmonary function [...] early in the course. Chocolate Flavor Headache Bethel Headache Diltiazem Other Other Unknown Iv contrast dye Goshen Oil Unknown Ciprofloxacin Swelling and Rash Rash, [...] not swallow.), Disp: 60 mL, Rfl: 11 ofsvuhykad-szbbbjjt-txypxudhaa (Breztri Aerosphere) 160-9-4.8 mcg/actuation HFA aerosol inhaler, [...] Behavior: Behavior normal. documented in this encounter [facility] Work Phone: 07-25-2024 Instructions Rich Magana MD MPH - 07/25/2024 11:45 AM EDT I am going to order complete PFTs and a 6-minute walk by calling [phone] In addition, I am going to order nocturnal pulse oximetry on 2 and half liters per minute at night. documented in this encounter [facility] Work Phone: 07-06-2024 Evaluation + Plan note Associated Problem(s): Chronic migraine without aura without status migrainosus, not intractable Orders: ketorolac (Toradol) injection 60 mg ketorolac (Toradol) 10 mg tablet; Take 1 tablet (10 mg) by mouth every 6 hours for 5 days. [facility] Work Phone: 07-06-2024 Miscellaneous Notes Associated Problem(s): Chronic migraine without aura without status migrainosus, not intractable Orders: ketorolac (Toradol) injection 60 mg ketorolac (Toradol) 10 mg tablet; Take 1 tablet (10 mg) by mouth every 6 hours for 5 days. 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 Chocolate Flavor Headache Bethel Headache Diltiazem Other Iodine Hives and Unknown Other Unknown Iv contrast dye Goshen Oil Unknown Ciprofloxacin Swelling and Rash Rash, [...] medication, stop & send a message via ViS, or call the next business day. CARSON Montez [facility]: [phone] 158-958303-05-2025 Instructions* Patient Instructions* CARSON Montez - 07/06/2024 1:00 PM EST Dear Velia, Thank you for coming to [facility]. It was a pleasure caring for you today. The best way to contact me for medication refills or questions about your care is through ViS. Otherwise, you can contact the office by [...] medication, stop & send a message via ViS, or call the next business day. [facility]: [phone]) 511-148503-05-2025 NoteConsultation Note Patient is presenting with complaints [...] call with any questions or concerns that arise.[facility] on above:Result Comment: Electronically Signed By: Issa Gonzales DO.br\Date and Time Signed: 07/06/24 11:01 [id number] Evaluation + Plan note* Assessment & Plan Note - Ingird Parker - 06/14/2024 5:42 PM EST Associated Problem(s): Anti-pneumococcal polysaccharide antibody deficiency (Multi) He has problems with Gamunex-C due to access issues. He prefers not to deal with [employer]. He will continue IV until we can switch to subcu when available and once I find an infusion center. [facility] Work Phone: [phone] 218-171002-11-2025 Miscellaneous Notes* Assessment & Plan Note - [...] Continue omeprazole. Continue Tezspire. [facility]: [phone]) 286-611702-11-2025 History of Present illness Narrative* Courtney Brown [...] exam, discussion and plan. documented in this [facility] Work Phone: [phone]) 930-222302-11-2025 Instructions* Patient Instructions* Ingrid Parker - 06/14/2024 [...] or symptoms worsen prior. documented in this [facility] Work Phone: [phone]) 402-868802-11-2025 Evaluation + Plan note* Assessment & Plan [...] hours as needed Continue omeprazole. Continue Tezspire. [facility] Work Phone: [phone] Evaluation + Plan noteExtracted from: Title:L5/S1 interlaminar [...] the epidural space was confirmed using the kcgq-bb-uabuwmturs technique and 2 cc of air. Injection [...] Date:07/06/2024 09:30:00 AM Scheduled Provider:Issa Gonzales DO Location:[facility] Appointment Type:Pain Management - Follow Up () Appointment Date:09/06/2024 10:00:00 AM Scheduled Provider:JESSICA PAYTON PA-C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 Attestation Statement: The following information was validated [...] and behavior appropriate, talkative PHYLLIS Risk Score PHYLILS Risk Score Predictor Presentation: Increased Cardiac Marker Score Risk Score (0-7): 1 Results Additional Results Results Comments: Labs from [place] emergency department reviewed BMP sodium 135, potassium [...] dyspnea/ weakness/ brain fog -Received steroid in [place] emergency department with improvement in symptoms,not currently wheezing will hold off continued steroid as patient reports associated tachycardia -Xopenex as from home, intolerant of albuterol with tachycardia previously. Continue budesonide, montelukast, fluticasone, Trelegy -Incentive spirometry -Follows with Dr. Magana pulmonary at as outpatient Chronic conditions 1. Migraines?amitriptyline, Celebrex, sumatriptan, Topamax, venlafaxine 2. BPH?tamsulosin 3. Chronic back/ neck pain with neuropathy?pregabalin, as needed Mccune 4. GERD?omeprazole CODE STATUS?full as discussed with patient DVT PPx?enoxaparin Documented By: JUAN Kelly 2 1013 Signed By: <Electronically signed by NICOLE-ZABRINA Bryant> 07/29/21 1205 <Electronically signed by Ketan Heard MD> 07/29/21 1235 [facility] Work Phone: 1([phone]) 354-423502-15-2022 History of Present illness Narrative* Since last [...] scheduled for a nuclear stress test tomorrow. RW-Zrzfnomfjf-Kpsfehec [place] Work Phone: [phone]) [phone] History of Present illness Narrative* Since last [...] scheduled for a nuclear stress test tomorrow. BB-Lorhhvlbfy-Yogcxs Work Phone: [phone]) 917-661902-01-2022 History of Present illness Narrative* Since last visit, 06/04/2021, patient saw Dr. Magana who is trying to wean him off the prednisone.He starts pulmonary rehab at [place] next 06/25/2021. * He reports his depression [...] college friend, who is apastor at his [employer], who counsels him, but he does not attend organized, formal counseling becausehe has limited choices with his insurance. * His infusions are going well with no issues or SE after. With his last infusion, he was 4 days lateand developed severe fatigue and apathy. His next infusion is due 06/27/2021. * he had cloudy urine and back pain and on Thursday went to [place] for cloudy urine and backpain. A rapid culture was positive for Strep, per patient, and he was prescribed azithromycin 250 for 5 days, which he is on currently. He notes his urine is still cloudy. MH-Coebqcvhag-Phusilio 2100 DO Work Phone: [phone]) [phone] History of Present illness Narrative* The patient [...] of consciousness. * The patient had a quality assurance monitor final for 2 weeks in 2019 that was [...] difficulty getting a place for pulmonary rehab. LU-Gxjjrigki-Peylg 204 Work Phone: [phone]) 314-650812-29-2021 History of Present illness Narrative* 61 year [...] act out of dream. Nightmares sometimes . [facility] A2470 DO Work Phone: [phone] History of Present illness Narrative* The patient [...] administration. He receives his immunoglobulin replacement -Pulmonary Medicine-[facility] [address] [place] Work Phone: [phone]) [phone] History of Present illness Narrative* He is [...] has a tilt table test scheduled 05/15/2021. JW-Nxdlxpiwcf-Ytwuynhl 2100 DO Work Phone: [phone] History of Present illness Narrative* Decrease of [...] depression not under good control. Seeing a gang rider for counseling currently. Trying to get in with counselor at [facility] for grief counseling. recently increased effexor to 150 bid. * Sees pain management for back pain. Vicodin through pain management. * Receiving Gammunex every 4 weeks with environmental consultant. Denies headaches made fatigued. (had benedryl before and after for itching) * . JW-Eadqtkwvl-Lvpczu 170 DO Work Phone: 1([phone]) 471-818410-12-2021 History of Present illness Narrative* The patient [...] on the Fasenra and IVIG replacement. MP-Pulmonary Medicine-[facility] [address] [place] Work Phone: [phone] 630-228810-01-2021 History of Present illness Narrative* Mr. VELIA [...] or ear drainage.. * Patient's preferred language: Serbian * Preferred language of the parent, legal guardian or surrogate decision-maker of this minor or incapacitated patient: Serbian * No overt signs of domestic violence/neglect/abuse. [...] verbalize recall / understanding and teaching complete. Audiology-[facility] [address] Work Phone: [phone] History of Present illness Narrative* The patient [...] on his IVIG therapies. * . MP-Pulmonary Medicine-[place] [address] [place] Work Phone: [phone] History of Present illness Narrative* He is [...] showed microhemorrhage present prior with no change. OC-Lhhvvvlmyb-Vzblvb Work Phone: [phone] History of Present illness Narrative* Since last [...] * He is planning on going to [place] 01/17/2021 through 01/21/2021 and asking if he is cleared to go. OH-Rtitxnuxfu-Frqfdtsa 2100 DO Work Phone: [phone] History of Present illness Narrative* Since last [...] with the acetylcysteine. He is scheduled for [facility] 12/25/2020 and feels better after he [...] * He plans on a trip to [place] and questions feasibility of going on the trip or not. * Dr. Matthews referred him to a professional security officer for his chronic bruising. NE-Lvgjpiiybw-Qsbdllns 6373 DO Work Phone: [phone] History of Present illness Narrative* Since last [...] * He plans on a trip to [place] and questions feasibility of going on the trip or not. * Dr. Matthews referred him to a professional security officer for his chronic bruising. [facility] Work Phone: [phone]) [phone] History of Present illness Narrativeright sided pain started about one week ago and it was initially intermittent with inspiration. Past two days pain with inspiration and expiration. Increased pain with cough. Pain with pressure at that side. Patient has long COVID syndrome. He has mucus plugs.BV-Aucftizjgl-Sblsksoy eDealya DO Work Phone: [phone] History of Present illness NarrativeThe patient is [...] pacemaker insertion.-Pulmonary Medicine-[facility] [address] [place] Work Phone: [phone] Hospital Discharge instructions* Instructions* Mathew Rios PA - 09/08/2020 Please take medication as prescribed Please follow up with your Physicians as instructed in this discharge paperwork Thank you for choosing [facility] I appreciate your patience Please return to the emergency department if your symptoms worsen, or new symptoms develop as discussed documented in this encounterSUM[facility] Work Phone: [phone]) [phone] Hospital Discharge instructions* Instructions* Felisha Rader MD [...] be sent through Care Everywhere. * Pneumonia (Serbian) documented in this encounterSUMMA Work Phone: [phone] 186-454503-11-2021 History of Present illness Narrative* VELIA BAGLEY [...] headache management and he was tocontinue his Mccune, Aimovig, Topamax, and amitriptyline for migraine management. [...] of 71.7%. Has been evaluated at the [facility] for Inspire, deemed not a candidate. * [...] did go to see Dr. 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 No double vision or blurry vision, did have them after falls. * Has constant fatigue, dry cough, brain fog, worsening COPD since COVID. He does see the COVID clinic at at [facility]. * He states he would like to go back up on the gabapentin to 800 mg 4x daily, it was reduced to 600 mg [address]x daily [address] Dr[address] Matthews. BW-Xxqnfelqm-Cjfqc 204 Work Phone: [phone] History of Present illness Narrative* VELIA BAGLEY [...] headache management and he was tocontinue his Mccune, Aimovig, Topamax, and amitriptyline for migraine management. [...] of 71.7%. Has been evaluated at the [facility] for Inspire, deemed not a candidate. * [...] did go to see Dr. Ruffin at [facility] (deemed him not a candidate for Inspire?) [...] brain fog as well, both short and jail memory. No double vision or blurry vision, did have them after falls. * Has constant fatigue, dry cough, brain fog, worsening COPD since COVID. He does see the COVID clinic at at [facility]. * He states he would like to go back up on the gabapentin to 800 mg 4x daily, it was reduced to 600 mg [address]x daily [address] Dr[address] Matthews. LF-Pmcshduhp-Ktlyg 204 Work Phone: [phone] History of Present illness Narrative* 60-year-old man with history of COVID-19 pneumonia in July 2020 (cough, shortness of breath, fever- was hospitalized at [facility] and treated with remdesivir, Decadron, aztreonam and [...] 89 F and was admitted at the [facility] with sepsis, lactic acidosis secondary to UTI [...] and is using Boost supplements. [facility] [address] [place] Work Phone: [phone] History of Present illness Narrative* Covid-19 infection date: July 2020 (sx: cough, SOB, fever hospitalized at [facility] and treatdwith Remdesivir, Decadron, Antibiotics, was [...] days. * Continued depression, speaks to a gang rider in [place] a few times per month, has not [...] notes anxiety and depression not controlled, seeing gang rider for counseling, increased topiramate dose * -05/2021 [...] replacement, knee surgeries, spine surgeries [facility] [address] [place] Work Phone: [phone] History of Present illness Narrative* Covid-19 infection date: July 2020 (sx: cough, SOB, fever hospitalized at [facility] and treatdwith Remdesivir, Decadron, Antibiotics, was on supplemental O2 for 10 days following hospitalization) * Covid-19 vaccine status: Pfizer 02/2021, 08/2021 * Occupation: retired * Current Care Providers: PCP Dr. Rayo, Pulmonary Dr. Magana, Immunology Dr. Brown, NeurologyDr. Matthews and Dr. Miller, Pain Management Dr. Jiménez, Cardiology Dr. Park, ENT Dr. Ruffin [facility], Hematology at [facility] * Survey scores: 12/2020 -> 08/2021 -> [...] back to sleep * Sometimes has to pickling drum operator his son late at night, also has to pickling drum operator son s girlfriend at night at times * Son s girlfriend has been having seizures throughout , does not get along with her family so Velia is now helping take care of her as well * Tried to set up therapy multiple times through , will be establishing with [facility] mental health provider * Has been following [...] pain and weakness, following with ortho at [facility], evaluation was normal * Had MRI of [...] ANN and nocturnal O2 use * -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 Rayo, Pulmonary Dr. Magana, Immunology Dr. Brown, NeurologyDr. Matthews and Dr. Miller, Pain Management Dr. Jiménez, Cardiology Dr. Park, ENT Dr. 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 Bagley is a 62-year-old, right-handed, male, with history of COVID- 19 infection in July 2020; he was hospitalized at [facility] and treated with Remdesivir, Decadron, antibiotics, and [...] Samson (for hemicrania continua since 2005 ). HS-Rivzlrzch-Oblbprtv Work Phone: [phone] History of Present illness Narrative* The patient [...] He continues on his Trelegy inhaler. -Pulmonary Medicine-[facility] [address] [place] Work Phone: [phone] History of Present illness Narrative* The patient [...] * He was seen by pulmonology at [facility] on November 21, 2019. He was [...] for Covid pneumonia in July [address] [facility]. He was treated with remdesivir and Decadron [...] corticosteroids and has continued on Fasenra. MP-Pulmonary Medicine-[place] [address] [place] Work Phone: [phone] History of Present illness Narrative* The patient [...] * He was seen by pulmonology at [facility] on November 21, 2019. He was [...] for Covid pneumonia in July [address] [facility]. He was treated with remdesivir and Decadron [...] corticosteroids and has continued on Fasenra. [facility] [address] [place] Work Phone: Chief complaint Narrative - Reported* VELIA BAGLEY is here for an initial evaluation. * Reason for Visit: Consult referred by Dr. Courtney Brown regarding poorly controlled asthma, cough and lack of energy. [facility] [address] [place] Work Phone: Chief complaint Narrative - Reported* Neurologic Evaluation. * [facility] falls [facility] Work Phone: Chief complaint Narrative - Reported* Neurologic Evaluation. * Follow up migraine management [facility] [address] DO Work Phone: Chief complaint Narrative - Reported* Dizziness * Neurologic Evaluation. * Follow up on dizziness and frequent falls [facility] Work Phone: Chief complaint Narrative - Reported* Neurologic Evaluation. * dizziness and falls [facility] Work Phone: Chief complaint Narrative - Reported* Neurologic Evaluation. * Follow up migraine management [facility] [address] DO Work Phone: Chief complaint Narrative - Reported* Neurologic Evaluation. * Follow up migraine management [facility] [address] DO Work Phone: Chief complaint Narrative - Reported* Neurologic Evaluation. * Follow up migraine management [facility] [address] DO Work Phone: Chief complaint Narrative - Reported* Migraine management follow up * Neurologic Evaluation. [facility] [address] DO Work Phone: Chief complaint Narrative - ReportedVelia Bagley was referred for neuropsychological evaluation by CARSON Palacios ([facility]) related to memory complaints and cognitive difficulty. UW-Sfrybqakq-Sbocwjfs Work Phone: Evaluation + Plan note Future Appointments Appointment Date:08/25/2022 11:15:00 AM Scheduled Provider:Elizabeth CHAUDHRY MD Location:[facility] Appointment Type:URO Office Visit Diagnostic Tests Pending * PSA Total 05/19/22 [facility] evaluation + Plan note Future Appointments Appointment Date:10/06/2022 01:15:00 PM Scheduled Provider:Elizabeth CHAUDHRY MD Location:[facility] Appointments Appointment Date:11/27/2022 09:30:00 AM Scheduled Provider:Wei Umana MD Location:[facility] Appointment Type:Pain Management - Follow Up (FT) Appointment Date:05/19/2023 02:30:00 PM Scheduled Provider:JESSICA PAYTON PA-C Location:[facility] Appointment Type:URO Office Visit [facility] evaluation + Plan note Future Appointments Appointment Date:05/19/2023 02:30:00 PM Scheduled Provider:JESSICA PAYTON PA-C Location:[facility] Appointment Type[facility] Future Appointments Appointment Date:08/04/2023 08:20:00 AM Scheduled Provider:JESSICA PAYTON PA-C Location:[facility] Appointment Type[facility]O [facility] Future Appointments Appointment Date:09/18/2023 12:45:00 PM Scheduled Provider:Barbara Duron PA-C Location:[facility] Appointment Type:Pain Management - Follow Up (FT) [facility] evaluation + Plan note Future Appointments Appointment Date:09/18/2023 12:45:00 PM Scheduled Provider:Barbara Duron PA-C Location:[facility] Appointment Type:Pain Management - Follow Up (FT) Appointment Date:09/06/2024 10:00:00 AM Scheduled Provider:JESSICA PAYTON PA-C Location:[facility] Appointment Type:URO Office Visit Diagnostic Tests Pending * PSA Screen, Total 09/01/23 [facility] evaluation + Plan note Future Appointments Appointment Date:09/06/2024 10:00:00 AM Scheduled Provider:JESSICA PAYTON PA-C Location:[facility] Appointment Type:URO [facility] + Plan note Future Appointments Appointment Date:09/20/2024 02:00:00 PM Scheduled Provider:JESSICA PAYTON PA-C Location:[facility] Appointment Type:URO Office Visit Appointment Date:10/06/2024 11:30:00 AM Scheduled Provider:Issa Gonzales DO Location:[facility] Appointment Type:Pain Management - Follow Up (FT) Future Scheduled Tests Laboratory* PSA Total 08/11/24 [facility] evaluation + Plan note Future Appointments Appointment Date:10/06/2024 10:00:00 AM Scheduled Provider:JESSICA PAYTON PA-C Location:[facility] Appointment Type:URO Office Visit Appointment Date:10/06/2024 11:30:00 AM Scheduled Provider:Issa Gonzales DO Location:[facility] Appointment Type:Pain Management - Follow Up (FT) Future Scheduled Tests Laboratory* PSA Total 08/11/24 [facility] evaluation note* Diagnosis Pneumonia of both lungs due to infectious organism, unspecified part of lung- Primary documented in this encounter [facility] Work Phone: Evaluation note* Diagnosis COPD exacerbation (HCC)- Primary Obstructive chronic bronchitis with exacerbation documented in this encounter [facility] Work Phone: Evaluation note* Diagnosis Severe persistent asthma without complication documented in this encounter [facility] Work Phone: evaluation note* Diagnosis Pneumonia of right upper lobe due to infectious organism (HCC) Recurrent aspiration pneumonia (HCC) Pneumonitis due to inhalation of food or vomitus documented in this encounter [employer] [facility] Work Phone: evaluation note* Diagnosis Onset Date Resolution Status KRISTA (acute kidney injury) ac leny COPD exacerbation acute Elevated troponin acute Hypokalemia acute Shortness of breath acute [facility] Work Phone: Evaluation noteNo assessment information available [facility] Work Phone: Evaluation note* Diagnosis Onset Date Resolution Status 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) [facility] Work Phone: Evaluation noteNo [employer] Other Evaluation note* Diagnosis Interstitial pulmonary disease, unspecified (CMS/HCC) Shortness of breath documented in this encounter [facility] Work Phone: Evaluation note* Diagnosis Memory loss Intractable chronic migraine without aura and with status migrainosus documented in this encounter [facility] Work Phone: Evaluation note* 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 Asthma with chronic obstructive pulmonary disease (COPD) Chronic obstructive asthma, unspecified Fatigue, unspecified type Vitamin D deficiency, unspecified documented in this encounter [facility] Work Phone: Evaluation note* Diagnosis Chronic migraine without aura, with intractable migraine, so stated, with status migrainosus- Primary Intractable chronic migraine without aura and with status migrainosus documented in this encounter [facility] Work Phone: Evaluation note* Diagnosis Onset Date Resolution Status 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) acute 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) acute [facility] Work Phone: Evaluation note* Diagnosis Asthma, severe persistent, poorly-controlled, with acute exacerbation- Primary documented in this encounter [facility] Work Phone: Evaluation note* Diagnosis Chronic migraine without aura without status migrainosus, not intractable Chronic migraine without aura, intractable, with status migrainosus documented in this encounter [facility] Work Phone: Evaluation note* Diagnosis Intractable chronic migraine without aura and with status migrainosus- Primary Chronic migraine without aura without status migrainosus, not intractable documented in this encounter [facility] Work Phone: Evaluation note* Diagnosis Onset Date Resolution Status 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) acute 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) acute Hypokalemia acute Pernicious anemia acute Post-COVID syndrome acute RTA (renal tubular acidosis) acute Wellness examination acute Bilateral primary osteoarthritis of knee acute [facility] Work Phone: Evaluation note* Diagnosis Onset Date Resolution Status 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) acute 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) acute Hypokalemia acute Pernicious anemia acute Post-COVID syndrome acute RTA (renal tubular acidosis) acute Wellness examination acute Bilateral primary osteoarthritis of knee acute Acute febrile illness acute [facility] Work Phone: Evaluation note* Diagnosis Onset Date Resolution Status 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) acute 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) acute Hypokalemia acute Pernicious anemia acute Post-COVID syndrome acute RTA (renal tubular acidosis) acute Wellness examination acute Bilateral primary osteoarthritis of knee acute Acute febrile illness acute Bilateral primary osteoarthritis of knee acute [facility] Work Phone: Evaluation note* Diagnosis Onset Date Resolution Status Hypokalemia acute Pernicious anemia acute Post-COVID syndrome acute RTA (renal tubular acidosis) acute Wellness examination acute Bilateral primary osteoarthritis of knee acute Acute febrile illness acute Bilateral primary osteoarthritis of knee acute 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) acute [facility] Work Phone: Evaluation note* Diagnosis Post concussion syndrome Postconcussion syndrome documented in this encounter [facility] Work Phone: Evaluation note* Diagnosis Intractable chronic migraine without aura and with status migrainosus documented in this encounter [facility] Work Phone: Evaluation note* Diagnosis Onset Date Resolution Status Bilateral primary osteoarthritis of knee acute Acute febrile illness acute Bilateral primary osteoarthritis of knee acute 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) acute 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) acute Arthralgia acute Fatigue acute Hypokalemia acute [facility] Work Phone: evaluation note* Diagnosis Onset Date Resolution Status Acute febrile illness acute Bilateral primary osteoarthritis of knee acute 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) acute 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) acute Arthralgia acute Fatigue acute Hypokalemia acute Bronchitis acute [facility] Work Phone: Evaluation note* Diagnosis Onset Date Resolution Status Bilateral primary osteoarthritis of knee acute 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) acute 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) acute Arthralgia acute Fatigue acute Hypokalemia acute Bronchitis acute [facility] Work Phone: Evaluation note* Diagnosis Onset Date Resolution Status Iron deficiency anemia secon jd to blood loss (chronic) acute Iron deficiency anemia secon jd to blood loss (chronic) acute Arthralgia acute Fatigue acute Hypokalemia acute Bronchitis acute Arthritis of left ankle acut e Bilateral primary osteoarthritis of knee acute Left ankle pain acute Pain of left calf noneactive [facility] Work Phone: Evaluation note* Diagnosis Onset Date Resolution Status Iron deficiency anemia secon jd to blood loss (chronic) acute Arthralgia acute Fatigue acute Hypokalemia acute Bronchitis acute Arthritis of left ankle acut e Bilateral primary osteoarthritis of knee acute Left ankle pain acute Pain of left calf noneactive Iron deficiency anemia secon jd to blood loss (chronic) acute [facility] Work Phone: Evaluation note* Diagnosis [...] secon jd to blood loss (chronic) acute [facility] Work Phone: Evaluation note* Diagnosis Onset Date Resolution Status Bronchitis acute Pernicious anemia acute Arthritis of left ankle acut e Bilateral primary osteoarthritis of knee acute Left ankle pain acute Pain of left calf noneactive Iron deficiency anemia secon jd to blood loss (chronic) acute Iron deficiency anemia secon jd to blood loss (chronic) acute Bilateral primary osteoarthritis of knee acute [facility] Work Phone: Evaluation note* Diagnosis Onset Date Resolution Status Arthritis of left ankle acut e Bilateral primary osteoarthritis of knee acute Left ankle pain acute Pain of left calf noneactive Iron deficiency anemia secon jd to blood loss (chronic) acute Iron deficiency anemia secon jd to blood loss (chronic) acute Bilateral primary osteoarthritis of knee acute [facility] Work Phone: Evaluation note* Diagnosis Asthma with [...] antibody deficiency (Multi) documented in this encounter [facility] Work Phone: Evaluation note* Diagnosis Asthma with [...] antibody deficiency (Multi) documented in this encounter [facility] Work Phone: Evaluation note* Diagnosis Asthma with [...] antibody deficiency (Multi) documented in this encounter [facility] Work Phone: Evaluation note* Diagnosis Asthma with [...] whether recurrent (Multi) documented in this encounter [facility] Work Phone: Evaluation note* Diagnosis Asthma with [...] obstructive asthma, unspecified documented in this encounter [facility] Work Phone: Evaluation note* Diagnosis Asthma with [...] with status migrainosus documented in this encounter [facility] Work Phone: Evaluation note* Diagnosis Asthma with [...] with status migrainosus documented in this encounter [facility] Work Phone: Evaluation note* Diagnosis Asthma with [...] with status migrainosus documented in this encounter [facility] Work Phone: Evaluation note* Diagnosis Asthma with [...] antibody deficiency (Multi) documented in this encounter [facility] Work Phone: Evaluation note* Diagnosis Asthma with [...] not intractable- Primary documented in this encounter [facility] Work Phone: Evaluation note* Diagnosis Asthma with [...] Postinflammatory pulmonary fibrosis documented in this encounter [facility] Work Phone: Evaluation note* Diagnosis Asthma with [...] COVID-19 (PASC)- Primary documented in this encounter [facility] Work Phone: Evaluation note* Diagnosis Asthma with [...] COVID-19 (PASC)- Primary documented in this encounter [facility] Work Phone: Evaluation note* Diagnosis Asthma with [...] Dizziness and giddiness documented in this encounter [facility] Work Phone: Evaluation note* Diagnosis Asthma with [...] obstructive asthma, unspecified documented in this encounter [facility] Work Phone: Hismrhg general Narrative - Reported* Type Description Date Medical History asthma Medical History Hypertension Medical History migraine headache Medical History COPD Medical History anti pneumococcal ppolysaccharid e antibody deficiency Surgical History patella reconstruction Surgical History bilateral knee Surgical History lumbar surgery Surgical History right hip repair 10/2019 Surgical History right hip replacement 01/2020 neoSaej Other Hismllp general Narrative - Reported* Type Description Date Medical History asthma Medical History Hypertension Medical History migraine headache Medical History COPD Medical History anti pneumococcal ppolysaccharid e antibody deficiency Surgical History patella reconstruction Surgical History bilateral knee Surgical History lumbar surgery Surgical History right hip repair 10/2019 Surgical History right hip replacement 01/2020 Surgical History laminectomy Hospitalization History SEE SURGICAL HX neoSaej Other Hisbart general Narrative - Reported* Type Description Date [...] injections 12/2022 Hospitalization History SEE SURGICAL HX neoSaej Other History of Present illness NarrativeToradol IM and PO after Botox to prevent injection triggered DnaovsdajUO-Kbxplgdzb-Ikdbam 170 DO Work Phone: History of Present illness NarrativeToradol IM and PO after Botox to prevent injection triggered MphpwlvirAE-Jiwxkvqjf-Fwubef 170 DO Work Phone: History of Present illness NarrativeToradol IM and PO after Botox to prevent injection triggered HzmebledqDF-Xraxcgfxu-Pchjbj 170 DO Work Phone: History of Present illness NarrativeToradol IM and PO after Botox to prevent injection triggered TevjjrudoLF-Ruwzkbhyd-Cnkbjv 170 DO Work Phone: History of Present [...] out of dream. Nightmares sometimes . [facility] [id number] DO Work Phone: History of Present [...] or ear drainage.. * Patient's preferred language: Serbian * Preferred language of the parent, legal guardian or surrogate decision-maker of this minor or incapacitated patient: Serbian * No overt signs of domestic violence/neglect/abuse. * No referral made to Study Hall Supervisor. * Pain not interfering with optimal [...] verbalize recall / understanding and teaching complete. LG-Aorfsowtp-Vnmgbpd 8059M Work Phone: History of Present illness Narrative* [...] 2020 (sx: cough, SOB, fever hospitalized at [facility] and treatdwith Remdesivir, Decadron, Antibiotics, was on supplemental O2 for 10 days following hospitalization) * Covid-19 vaccine status: Pfizer 02/2021, 08/2021 * Occupation: retired * Current Care Providers: PCP Dr. Raoy, Pulmonary Dr. Magana, Immunology Dr. Brown, NeurologyDr. [...] current regimen for consistency * Needs less Mccune, dosage is decreased to BID prn * [...] of symptoms * Scheduled to follow-up with tube washer this month as well, following stress test [...] PO after Botox to prevent injection triggered LlxpqpwxlMM-Zkpjjdhus-Stvmxy 170 DO Work Phone: History of Present illness NarrativeToradol IM and PO after Botox to prevent injection triggered ZbkfmctmzFA-Lyvwjxuhm-Byqvwf 170 DO Work Phone: History of Present illness NarrativeToradol IM and PO after Botox to prevent injection triggered ExyssmditSZ-Nxzhwyisf-Dvcccw 170 DO Work Phone: History of Present illness NarrativeToradol IM after Botox to prevent injection triggered FhpjwxozzLU-Hnvsmnxqx-Zlygwo 170 DO Work Phone: History of Present illness Narrative* The virtual visit conducted with Audio and Video * Verbal consent was given for the following virtual visit, patient is currently located in [place]. Thevisit below was conducted because of restrictions due to the COVID-19 pandemic. All issues discussed and addressed below were done so without a physical examination. If it was felt the patient neededbe seen in clinic in person they were directed there. * Covid-19 infection date: July 2020 (sx: cough, SOB, fever hospitalized at [facility] and treatdwith Remdesivir, Decadron, Antibiotics, was on supplemental O2 for 10 days following hospitalization) * Covid-19 vaccine status: Pfizer 02/2021, 08/2021, 06/2022 * Occupation: retired * Current Care Providers: PCP Dr. Rayo, Pulmonary Dr. Magana, Immunology Dr. Brown, NeurologyDr. Matthews and Dr. Miller, Pain Management Dr. Jiménez, Cardiology Dr. Park, ENT Dr. 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 at OSH recommends iron infusions * -05/2022 pain management started flexeril, renewed norco and lyrica * -08/2022 ENT at [facility] for dysphonia, evaluation notes mild irritation of the vocal fords with increased straining during phonation, 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 * -09/2022 Neurology [...] repair, hip replacement, knee surgeries, spine surgeries [facility] [address] [place] Work Phone: History of Present illness NarrativeToradol IM after Botox to prevent injection triggered ZwrmoakedJC-Gmwxqcvgm-Ncjhvj 170 DO Work Phone: History of Present illness NarrativeToradol IM after Botox to prevent injection triggered OpyoppbtrFI-Etyvgwnas-Aldpsz 170 DO Work Phone: Hospital course Narrative No data available for this section [facility] Hospital Discharge instructions Additional Instructions You are scheduled for an outpatient LEXISCAN STRESS TEST at [facility] in the [place] Office on 08/14/2021 at 7:30am- see instructions. [...] ask your primary care provider to obtain [facility] records entirely to follow up on all of the abnormal physical, laboratory, and imaging findings that I have not addressed. Please return back to the emergency room or seek medical attention if your symptoms worsen or return. Discharging you from [facility] does not mean that your medical care ends here and now. You may still need additional monitoring, work up, investigation, and treatment plan to be handled from this point on by out patient providers including your primary care provider and specialists. For any medication question, please contact your retail pharmacist or your primary care provider. Thank you.[facility] Work Phone: Hospital Discharge instructions No data available for this section [facility] Additional Instructions Please follow-up with the concussion clinic as you are already indicated to do. Return the emergency department if you develop any one-sided weakness, chest pain, shortness of breath, severe worsening or headache, intractable nausea or vomiting, seizure-like activity or any other general concerns[facility] Work Phone: Instructions* Name Dates Details Instructions not documented ZG-Ywtbrbzdz-Mpgwxc 170 DO Work Phone: Progress note Author Melissa Wilson [facility] March 18, 2022 3:27pm Note Date/Time March 18, 2022 2:26pm [facility] at [address] [address] Hem/Onc Follow Up Note - OP Signed Patient: Velia Bagley MR#: [id number] : 1960 Acct:[id number] Age/Sex: 62 / M Type: REG RCR [...] still with low iron saturation and ferritin. [facility] - Medical History Medical History: Medical History [...] % (Auto) 66.1, Lymph % (Auto) 26.1, [place] % (Auto) 7.6, Eos % (Auto) 0.0, Baso % (Auto) 0.2, Neut # (Auto) 3.0, Lymph # (Auto) 1.2, [place] # (Auto) 0.3, Eos # (Auto) 0.0, [...] for coordination of care (as documented) and mntx-el-nvir counseling of patient and/or family. Dictated By: Melissa Wilson APRN DD/ 1425 Signed By: <Electronically signed by LUIS Wilson> 03/18/22 1527 [facility] Work Phone: Progress note Author Melissa Wilson [facility] May 16, 2022 11:50am Note Date/Time May 16, 2022 1 1:45am [facility] [place] [address] Hem/Onc Follow Up Note - OP Signed Patient: Velia Bagley MR#: [id number] : 1960 Acct:[id number] Age/Sex: 62 / M Type: REG RCR [...] stable, iron ok, no need for infusions [facility] - Medical History Medical History: Medical History [...] 03/26/22 11:46 KB (Rec: 03/26/22 11:47 KB [id number]) Distress Screening Distress score of 4 or more discussed Yes with patient? Distress screening follow up: Patient requesting referral to [facility]. Referal order placed . [...] for coordination of care (as documented) and khlh-oh-pdaz counseling of patient and/or family. Dictated By: Melissa Wilson APRN DD/ 1144 Signed By: <Electronically signed by LUIS Wilson> 05/16/22 1150 [facility] Work Phone: Progress note No data available for this section [facility] progress note Author Melissa Wilson [facility] September 08, 2023 2:36pm Note Date/Time September 04, 2023 1:14pm [facility] [place] [address] Cancer Center Note Signed Patient: Velia Bagley MR#: [id number] : 1960 Acct:[id number] Age/Sex: 63 / M Type: DEP AMB [...] studies in 3mo follow-up in 3mo with [employer] Treatment Plan Iron Sucrose (Venofer) [...] is 17%. Dr. Maloney is her new bread jockey and has ordered iron, which she will get today on [address] her creatinine has been increasing, but her daughter and son in law note the bread jockey has made some medication changes and hope [...] Her creat is improved. She states her bread jockey told her it was because the antibiotics [...] She got iv iron written by her bread jockey on 09/03 and 09/19. she got injectafer. [...] PO DAILY biotin 10,000 mcg PO DIRECTED ygbzendhog-afbzzkkd-nqnpcqjags 160-9-4.8 mcg/actuation 2 puffs inhalation BID celecoxib [...] follow up visit for iron deficiency anemia [facility] Medical History Medical History Pernicious anemia Interstitial [...] <Electronically signed by LUIS Wilson> 09/08/23 1436 [facility] Work Phone: Reason for referral (narrative)* Procedure (Routine) - Pending Review Specialty Diagnoses / Procedures Referred By Contac t Referred To Contact Diagnoses Chronic migraine without aura, with intractable migraine, so stated, with status migrainosus Procedures Head/Face/Jaw Botulinum Injection Jodie Mathtews MD [address] [place] [address] Referral ID Status Reason Start Date Expiration Date Visits Requested Visits Authorized [id number] Pending Review Perform Procedure 3 04/14/2024 1 1 * Clinic-Administered Medication (Routine) - Pending Review Specialty Diagnoses / Procedures Referred By Contac t Referred To Contact Diagnoses Intractable chronic migraine without aura and with status migrainosus Jodie Matthews MD [address] [place], [place] [id number] Referral ID Status Reason Start Date Expiration Date V isits Requested Visits Authorized [id number] Pending Review 04/15/2023 04/14/2024 1 1 * Clinic-Administered Medication (Routine) - Pending Review Specialty Diagnoses / Procedures Referred By Contac t Referred To Contact Diagnoses Intractable chronic migraine without aura and with status migrainosus Jodie Matthews MD [address] [place] [address] Referral ID Status Reason Start Date Expiration Date V isits Requested Visits Authorized [id number] Pending Review 04/15/2023 04/14/2024 1 1 [facility] Work Phone: Reason for referral (narrative)* Procedure (Routine) - Pending Review Specialty Diagnoses / Procedures Referred By Contac t Referred To Contact Diagnoses Intractable chronic migraine without aura and with status migrainosus Procedures Head/Face/Jaw Botulinum Injection Jodie Matthews MD [address] [place] [address] Referral ID Status Reason Start Date Expiration Date Visits Requested Visits Authorized [id number] Pending Review Perform Procedure 07/20/2023 07/19/2024 1 1 * Clinic-Administered Medication (Routine) - Pending Review Specialty Diagnoses / Procedures Referred By Contac t Referred To Contact Diagnoses Intractable chronic migraine without aura and with status migrainosus Jodie Matthews MD [address] [place] [address] Referral ID Status Reason Start Date Expiration Date V isits Requested Visits Authorized [id number] Pending Review 07/20/2023 07/19/2024 1 1 * Medications - Pending Review Specialty Diagnoses / Procedures Referred By Contac t Referred To Contact Diagnoses Chronic migraine without aura without status migrainosus, not intractable Jodie Matthews MD [address] [place] [address] Referral ID Status Reason Start Date Expiration Date V isits Requested Visits Authorized [id number] Pending Review 07/16/2023 07/15/2024 1 1 * Clinic-Administered Medication (Routine) - Pending Review Specialty Diagnoses / Procedures Referred By Contac t Referred To Contact Diagnoses Chronic migraine without aura without status migrainosus, not intractable Joide Matthews MD [address] [place] [address] Referral ID Status Reason Start Date Expiration Date V isits Requested Visits Authorized [id number] Pending Review 07/15/2023 07/14/2024 1 1 [facility] Work Phone: Reason for referral (narrative)* Procedure (Routine) - Pending Review Specialty Diagnoses / Procedures Referred By Contac t Referred To Contact Diagnoses Intractable chronic migraine without aura and with status migrainosus Procedures Head/Face/Jaw Botulinum Injection Jodie Matthews MD [address] [place] [address] Referral ID Status Reason Start Date Expiration Date Visits Requested Visits Authorized [id number] Pending Review Perform Procedure 10/12/2023 10/11/2024 1 1 * Clinic-Administered Medication (Routine) - Pending Review Specialty Diagnoses / Procedures Referred By Contac t Referred To Contact Diagnoses Intractable chronic migraine without aura and with status migrainosus Jodie Matthews MD [address] [place] [address] Referral ID Status Reason Start Date Expiration Date V isits Requested Visits Authorized [id number] Pending Review 10/12/2023 10/11/2024 1 1 * Medications - Closed Specialty Diagnoses / Procedures Referred By Contac t Referred To Contact Diagnoses Intractable chronic migraine without aura and with status migrainosus Jodie Matthews MD [address] [place] [address] Referral ID Status Reason Start Date Expiration Date Visits Re quested Visits Authorized [id number] Closed 1 1 * Clinic-Administered Medication (Routine) - Pending Review Specialty Diagnoses / Procedures Referred By Contac t Referred To Contact Diagnoses Intractable chronic migraine without aura and with status migrainosus Jodie Matthews MD [address] [place] [address] Referral ID Status Reason Start Date Expiration Date V isits Requested Visits Authorized [id number] Pending Review 10/12/2023 10/11/2024 1 1 [facility] Work Phone: Reason for referral (narrative)* Procedure (Routine) - Pending Review Specialty Diagnoses / Procedures Referred By Contac t Referred To Contact Diagnoses Intractable chronic migraine without aura and with status migrainosus Procedures Head/Face/Jaw Botulinum Injection Jodie Matthews MD [address] [place] [address] Referral ID Status Reason Start Date Expiration Date Visits Requested Visits Authorized [id number] Pending Review Perform Procedure 01/11/2024 01/10/2025 1 1 * Clinic-Administered Medication (Routine) - Pending Review Specialty Diagnoses / Procedures Referred By Contac t Referred To Contact Diagnoses Intractable chronic migraine without aura and with status migrainosus Jodie Matthews MD [address] [place] [address] Referral ID Status Reason Start Date Expiration Date V isits Requested Visits Authorized [id number] Pending Review 01/11/2024 01/10/2025 1 1 * Clinic-Administered Medication (Routine) - Pending Review Specialty Diagnoses / Procedures Referred By Kings cedillo Referred To Contact Diagnoses Chronic migraine without aura, intractable, with status migrainosus Jodie Matthews MD [address] [place] [address] Referral ID Status Reason Start Date Expiration Date V isits Requested Visits Authorized [id number] Pending Review 01/11/2024 01/10/2025 1 1 [facility] Work Phone: Reason for visit Narrative* Imaging (Routine) - Authorized Specialty Diagnoses / Procedures Referred By Kings cedillo Referred To Contact Radiology Diagnoses ILD (interstitial lung disease) (Multi) Procedures CT chest high resolution Rich Magana MD MPH [address] [place] [address] Phone: tel: fax: Referral ID Status Reason Start Date Expiration Date Visits Requested Visits Authorized [id number] Authorized Perform Procedure 12/07/2023 12/06/2024 1 1 [facility] Work Phone: Summary Purpose Family History No [...] FoundDocuments on File Type Date Recorded Patient Well Puller Head Expl anation Advance Directives and Living Will Power of Rn Neurology Documents on File Type Date Recorded Patient Well Puller Head Expl anation Advance Directives and Living Will Power of Rn Neurology Documents on File Type Date Recorded Patient Well Puller Head Expl anation ACP-Advance Directive ACP-Power of Rn Neurology Advance Directive Response Recorded Date/ Time Advance Directives No October 29 4:43pm Advance Directive Response Recorded Date/ Time Advance Directives No October 29 3:43pm Hospital Course Note [id number] Admitted: 04/26/2018 Discharged: 04/28/2018 Date of : 1960 Physician: Peter Tavarez MD DISCHARGE SUMMARYPRINCIPAL DIAGNOSES:1. Sepsis likely secondary to complicated urinary tract infection/extended-spectrum beta-lactamases, multidrug-resistant Escherichia coli.2. Metabolic encephalopathy, likely secondary to above, resolved.3. Urinary tract infection, benign prostatic hyperplasia, neurogenic bladder.SECONDARY DIAGNOSES:1. Hypertension.2. Asthma.3. Osteoarthritis.4. History of CVA.5. Multiple allergies to antibiotics.DISCHARGE ATTENDING: Peter Tavarez [facility] PHYSICIAN: Dr. Rachel Rayo, phone [phone]: Urology consulted and Infection Disease consulted duringhospital stay.PHYSICAL EXAMINATION: GENERAL: Today, comfortable, no acute distress.Alert, awake, and oriented x3.HEENT: PERRLA.NECK: Supple.RESPIRATORY: Lung sounds clear.HEART: S1 and S2.ABDOMEN: Soft.NEUROLOGIC: No (more content not included)... Note HNO ID: [id number] Author: Deric sanchez (Ya Barajas Service: Orthopaedic [...] (more content not included)... Note HNO ID: [id number] Author: Deric Barajas Service: Orthopaedic Surgery Author Type: Nurse [...] (more content not included)... Note HNO ID: [id number] Author: Skip Pettit Service: Hospital Medicine Author [...] (more content not included)... Note HNO ID: [id number] Author: Slime Granda Service: Hospital Medicine Author [...] (HCC) - Severe persistent asthma Dr Sarmiento patient monitor - TIA (transient ischemic attack) 2016 2017 - Urinary retention - UTI (urinary tract infection) - Vocal cord dysfunction Hospital Course - Per HANDP 07/30 (ICU eval in ER) - IMPRESSION: ? (more content not included)... Note HNO ID: [id number] Author: Delbert Castaneda Service: Orthopaedic Surgery Author Type: Physician Type: Brief Op Note Filed: 01/16/2020 1:22 PM Note Text: BRIEF OPERATIVE / PROCEDURE NOTE TOTAL HIP ARTHROPLASTY LOG ID: [id number] Surgery/Procedure Date: 01/16/2020 Incision/Procedure Start Time: 11:50 AM Incision Close/Procedure End Time: Surgeon(s)/Proceduralist(s) and Small Animal Veterinarian(s): Surgeon(s) and Role: * Hiral Castaneda - Primary * Sally De Leon - Resident - Assisting Rehab Therapy Manager: Melissa Keenan SA Procedure(s): Procedure(s) (LRB): ARTHROPLASTY [...] Cancino PTA - 12/10/2018 12:22 PM EDT [facility] Outpatient Physical Therapy Daily Note Patient: Velia Bagley : 1960 [facility] #: [id number] Referring Practitioner: CARSON Stewart Referral Date : [...] 2: Patient will have a negative L [place]-Hallpike indicating inactive canalithiasis -MET [x]Met []Partially met []Not met Short term goal 3: Patient's R posterior and horizontal canals will be assessed -MET [x]Met []Partially met []Not met []Met []Partially met []Not met Half-Way Goals - Time Frame for terminal worker goals : 5 weeks jail goal 1: Patient will be independent and compliant with a HEP -MET [x]Met []Partially met []Not met terminal worker goal 2: Patient will have a negative BPV testing. []Met []Partially met []Not met jail goal 3: Patient will deny vertigo with rolling to his left in bed, bending, and ambulating []Met []Partially met []Not met terminal worker goal 4: Pt will improve bilateral LE strength to >/= 4/5 in all major joints and planes. []Met []Partially met []Not met terminal worker goal 5: Patient will improve romberg balance to >30 seconds and tandem stance to >15 seconds bilaterally. []Met []Partially met []Not met Minutes Tracking: Time In: 1134 Time Out: 1218 Minutes: 44 Kaya Cancino PTA Date: 12/10/2018 documented in this encounter* Melissa Bray - 01/17/2019 1:34 PM EDT [facility] Inpatient/Observation/Outpatient Rehabilitation Date: 01/17/2019 Patient Name: Velia Bagley [] Inpatient Acute/Observation [x] Outpatient : 1960 [x] Pt cancelled due to: [x] Sick/ill Lo took the call and asked me to cancel today's appointment and appointment due to patientbeing sick Melissa Bray Date: 01/17/2019 documented in this encounter* Jacki Rooney, MICHELLE - 06/07/2019 11:30 AM EST [facility] Outpatient Speech Therapy DAILY TREATMENT NOTE Date: 06/07/2019 Patient s Name: Velia Bagley Date of : 1960 (59 y.o.) Gender: male CSN #: [id number] Referring physician:Mychal Bautista Diagnosis: Diagnosis: Dysphagia R13.12, Dysphonia R49. 0 INSURANCE [employer]PER[employer] Insurance Information: [employer] Total # of Visits to Date: [...] ENT eval. []Met [x]Partially met []Not met MUSEUM SPECIALIST GOALS/ TREATMENT SESSION: Goal 1: Patient will [...] 1 Electronically signed by: Jacki Rooney M.S., CCC-SUPERVISOR [employer] Date:06/07/2019 * Silvana Davenport - 06/07/2019 11:30 AM EST [facility] EXCHANGE SPEECH NEEDS PRE-CERTED PRINTED OFF FORM AND FAXED WITH CLINICAL INFORMATION AND DOCTORS SCRIPT. ONCE APPROVED COVERED AT 75% WITH A $10.00 CO-PAY ALSO HARD LIMIT 20 VISITS PER YEAR REFERENCE # [id number] documented in this encounter* Jacki Rooney SLP - 06/13/2019 2:45 PM EST [facility] Outpatient Speech Therapy DAILY TREATMENT NOTE Date: 06/13/2019 Patient s Name: Velia Bagley Date of : 1960 (59 y.o.) Gender: male CSN #: [id number] Referring physician:Mychal Bautista Diagnosis: Diagnosis: Dysphagia R13.12, Dysphonia R49. 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 []Met [x]Partially met []Not met MUSEUM SPECIALIST GOALS/ TREATMENT SESSION: Goal 1: Patient will [...] 1 Electronically signed by: Jacki Rooney M.S., CCC-SUPERVISOR [employer]' Date:06/13/2019 ] documented in this encounter* Jacki Rooney SLP - 07/15/2019 10:00 AM EDT [facility] Outpatient Speech Therapy DAILY TREATMENT NOTE Date: 07/15/2019 Patient s Name: Velia Bagley Date of : 1960 (59 y.o.) Gender: male [facility] #: [id number] Referring physician:Mychal Bautista Diagnosis: Diagnosis: Dysphagia R13.12, Dysphonia R49. 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 Electronically signed by: Jacki Rooney M.S., CCC-SUPERVISOR [employer] Date:07/20/2019 documented in this encounter* Jacki Rooney SLP - 06/20/2019 2:45 PM EST [facility] Outpatient Speech Therapy DAILY TREATMENT NOTE Date: 06/20/2019 Patient s Name: Velia Bagley Date of : 1960 (59 y.o.) Gender: male CSN #: [id number] Referring physician:Mychal Bautista Diagnosis: Diagnosis: Dysphagia R13.12, Dysphonia R49. 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 []Met []Partially met []Not met ALF GOALS/ TREATMENT SESSION: Goal 1: Patient will [...] 1 Electronically signed by: Jacki Rooney M.S., CCC-SUPERVISOR [employer] Date:06/20/2019 documented in this encounter* Kodi Mancia, PT - 12/14/2018 12:27 PM EDT [facility] Outpatient Physical Therapy Daily Note Patient: Velia Bagley : 1960 CSN #: [id number] Referring Practitioner: CARSON Stewart Referral Date : [...] []Not met []Met []Partially met []Not met Wood Model Maker Goals - Time Frame for terminal worker goals : 5 weeks terminal worker goal 1: Patient will be independent and compliant with a HEP -MET []Met []Partially met []Not met terminal worker goal 2: Patient will have a negative BPV testing. []Met []Partially met []Not met jail goal 3: Patient will deny vertigo with rolling to his left in bed, bending, and ambulating []Met []Partially met []Not met jail goal 4: Pt will improve bilateral LE strength to >/= 4/5 in all major joints and planes. []Met []Partially met []Not met terminal worker goal 5: Patient will improve romberg balance to >30 seconds and tandem stance to >15 seconds bilaterally. []Met []Partially met []Not met Minutes Tracking: Time In: 844 Time Out: 928 Minutes: 44 Kodi Mancia PT, DPT Date: 12/14/2018 documented in this encounter* Andra Gong - 12/15/2018 9:22 AM EDT [facility] Inpatient/Observation/Outpatient Rehabilitation Date: 12/15/2018 Patient Name: Velia [...] Ewelina Rome - 01/12/2019 9:58 AM T [facility] Inpatient/Observation/Outpatient Rehabilitation Date: 01/12/2019 Patient Name: Velia [...] be sent through Care Everywhere. * Bronchitis (Serbian) * COPD: Prevent Lung Infections: General Info (Serbian) documented in this encounter* Instructions* Ronit Reynolds, BULL - 04/01/2019 [facility] POST-BRONCHOSCOPY INSTRUCTIONS 1. ACTIVITY No driving, operating [...] QUESTIONS, PLEASE CALL YOUR DOCTOR OR THE [facility] GI [facility] AT [phone]. documented in this encounter Reason for Referral Status Reason Specialty Diagnoses / Procedures Referre d By Contact Referred To Contact Closed Radiology Diagnoses Pneumonia of right middle lobe due to infectious organism (HCC) Procedures CT Chest W Contrast HC CT CHEST W/ CONTRAST Eliseo Garcia, 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 [address] [place] [address] Status Reason Specialty Diagnoses / Procedures Re ferred By Contact Referred To Contact Open Diagnoses Severe persistent asthma without complication Procedures Full PFT Study With Bronchodilator Pa Patel MD [address] [place] [address] Status Reason Specialty Diagnoses / Procedures Referre d By Contact Referred To Contact Open Radiology Diagnoses Pneumonia of right upper lobe due to infectious organism (HCC) Recurrent aspiration pneumonia (HCC) Procedures FL MODIFIED BARIUM SWALLOW W VIDEO HC FL MODIFIED BARIUM SWALLOW W VIDEO Mychal Bautista MD [facility] [address] Reason *FU 07/28 bilat. S I joint injections Diagnosis 1 Lumbar pain (M54.50) Referral Organization [facility][1] urosurgery Referring Provider First Name Jodie Referring Provider Last Name Natalio Referring Provider Specialty Neurologica l Surgery Referred Organization [facility] Referred Provider Wei Umana Referred Address [address], [place],[address] Referred Provider Specialty Pain Medicin e Referral Priority Routine General Notes Courtney Awan M 023 09:52:34 AM >Received today. [facility] Pain Medicine 's office request us to fill out form and fax referral to them and they will review the referral and call patient. Referral was fax Reason Aqua therapy for res trengthening Diagnosis 1 Lumbar pain (M54.50) Referral Organization [facility][1] urosurgery Referring Provider First Name Jodie Referring Provider Last Name Blades Referring Provider Specialty Neurologica l Surgery Referred Organization [facility] Referred Address [address] [place], [place],[address] Referred Provider Specialty Physical The rapist Referral Priority Routine Reason Left AFO Diagnosis 1 Weakness of left derek t (R29.898) Referral Organization [facility][1] urosurger Referring Provider First Name Jodie Referring Provider Last Name Blades Referring Provider Specialty Neurologica l Surgery Referred Organization [facility] Referred Address [address] [place], [place],[address] Referred Provider Specialty DME Referral Priority Routine Specialty Diagnoses / Procedures Referred By Ronyac t Referred To Contact Cardiology Diagnoses Interstitial pulmonary disease, unspecified (CMS/HCC) Shortness of breath Procedures Transthoracic Echo (TTE) Complete NH ECHO TRANSTHORC R-T 2D W/WO M-MODE REC F-UP/LMTD NH DOP ECHOCARD COLOR FLOW VELOCITY MAPPING NH DOP ECHOCARD PULSE WAVE W/SPECTRAL F-UP/LMTD STD Rich Magana MD MPH [address] [place] [address] Referral ID Status Reason Start Date Expiration Date Visits Requested Visits Authorized [id number] Authorized Perform Procedure 02/05/2023 08/04/2023 1 1 Specialty Diagnoses / Procedures Referred By Contac t Referred To Contact Diagnoses Intractable chronic migraine without aura and with status migrainosus Jodie Matthews MD [address] [place] [address] Referral ID Status Reason Start Date Expiration Date V isits Requested Visits Authorized [id number] Pending Review 03/25/2023 03/24/2024 1 1 Referral ID Status Reason Start Date Expiration Date V isits Requested Visits Authorized [id number] Pending Review 03/24/2023 03/23/2024 1 1 Specialty Diagnoses / Procedures Referred By Contac t Referred To Contact Diagnoses Chronic migraine without aura without status migrainosus, not intractable Jodie Matthews MD [address] [place] [address] Referral ID Status Reason Start Date Expiration Date V isits Requested Visits Authorized [id number] Pending Review 06/22/2023 06/21/2024 1 1 Procedure Findings Note HNO ID: [id number] Author: Delbert Castaneda Service: Orthopaedic Surgery Author Type: Physician Type: Brief Op Note Filed: 01/16/2020 1:22 PM Note Text: BRIEF OPERATIVE / PROCEDURE NOTE TOTAL HIP ARTHROPLASTY LOG ID: [id number] Surgery/Procedure Date: 01/16/2020 Incision/Procedure Start Time: 11:50 AM Incision Close/Procedure End Time: Surgeon(s)/Proceduralist(s) and Small Animal Veterinarian(s): Surgeon(s) and Role: * Hiral Castaneda - Primary * Sally De Leon - Resident - Assisting Rehab Therapy Manager: Melissa Keenan SA Procedure(s): Procedure(s) (LRB): ARTHROPLASTY [...] day Botox injections * onobotulinumtoxinA toxin A ([facility]- [id number] 01) * Every 90 day Botox injections [...] day Botox injections * onobotulinumtoxinA toxin A ([facility]- [id number] 01) 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 a follow-up visit.FUV* Every 90 day Botox injections * onobotulinumtoxinA toxin A ([facility]- 3558-7182 01) * Every 90 day Botox injections [...] ankle and joints of left fo OP TIN POT OPERATOR LT ANKLE PAIN, SP CARMEN KNEE PAIN [...] ankle and joints of left fo OP TIN POT OPERATOR LT ANKLE PAIN, SP CARMEN KNEE PAIN [...] ankle and joints of left fo OP TIN POT OPERATOR LT ANKLE PAIN, SP CARMEN KNEE PAIN [...] ankle and joints of left fo OP TIN POT OPERATOR LT ANKLE PAIN, SP CARMEN KNEE PAIN [...] ankle and joints of left fo OP TIN POT OPERATOR LT ANKLE PAIN, SP CARMEN KNEE PAIN [...] ankle and joints of left fo OP TIN POT OPERATOR LT ANKLE PAIN, SP CARMEN KNEE PAIN [...] section and content) DATE CREATED AUTHOR 10/27/2017 [facility] DATE CREATED AUTHOR AUTHOR'S ORGANIZ ATION 10/27/2017 [facility] DATE CREATED AUTHOR AUTHOR'S ORGANIZ ATION 05/12/2018 [facility] DATE CREATED AUTHOR AUTHOR'S ORGANIZ ATION 12/09/2019 [facility] DATE CREATED AUTHOR AUTHOR'S ORGANIZ ATION 08/07/2020 [facility] DATE CREATED AUTHOR AUTHOR'S ORGANIZ ATION 08/14/2020 [facility] DATE CREATED AUTHOR AUTHOR'S ORGANIZ ATION 09/15/2020 [facility] DATE CREATED AUTHOR AUTHOR'S ORGANIZ ATION 04/07/2021 [facility] DATE CREATED AUTHOR AUTHOR'S ORGANIZ ATION 06/08/2021 [facility] DATE CREATED AUTHOR AUTHOR'S ORGANIZ ATION 07/20/2022 [facility] DATE CREATED AUTHOR AUTHOR'S ORGANIZ ATION 08/08/2022 [facility] DATE CREATED AUTHOR AUTHOR'S ORGANIZ ATION 08/16/2022 [facility] DATE CREATED AUTHOR AUTHOR'S ORGANIZ ATION 09/03/2022 [facility] DATE CREATED AUTHOR AUTHOR'S ORGANIZ ATION 01/22/2023 [facility] DATE CREATED AUTHOR AUTHOR'S ORGANIZ ATION 02/04/2023 [facility] [place] DATE CREATED AUTHOR AUTHOR'S ORGANIZ ATION 03/13/2023 [facility] DATE CREATED AUTHOR AUTHOR'S ORGANIZ ATION 12/14/2023 [facility] DATE CREATED AUTHOR AUTHOR'S ORGANIZ ATION 08/19/2024 [facility] DATE CREATED AUTHOR AUTHOR'S ORGANIZ ATION 09/01/2024 [facility] DATE CREATED AUTHOR AUTHOR'S ORGANIZ ATION 09/14/2024 [facility] DATE CREATED AUTHOR AUTHOR'S ORGANIZ ATION 09/15/2024 [facility] DATE CREATED AUTHOR AUTHOR'S ORGANIZ ATION 09/16/2024 [facility] DATE CREATED AUTHOR AUTHOR'S ORGANIZ ATION 09/16/2024 [facility] DATE CREATED AUTHOR AUTHOR'S ORGANIZ ATION 09/20/2024 [facility] DATE CREATED AUTHOR AUTHOR'S ORGANIZ ATION 09/27/2024 [facility] Reason for Visit (unrecogniz ed section and content) Reason Comments Migraine Every 90 day Botox i njectionsonobotulinumtoxinA toxin A ([facility]- 8928-1966 01) Specialty Diagnoses / Procedures Referred By Contac t Referred To Contact Diagnoses Intractable chronic migraine without aura and with status migrainosus Jodie Matthews MD [address] [facility] [address] [place] [address] Referral ID Status Reason Start Date Expiration Date V isits Requested Visits Authorized [id number] Pending Review 04/15/2023 04/14/2024 1 1 Reason Comments Shortness of Breath started with cough 2 days ago, states sputum is thick and brown now Status Reason Specialty Diagnoses / Procedures Referre d By Contact Referred To Contact Diagnoses RIGHT MIDDLE LOBE COLLAPSE Procedures NH OFFICE/OUTPT VISIT,PROCEDURE ONLY BRONCHOSCOPY Dayton Fulton MD [address] [address] [facility] Status Reason Specialty Diagnoses / Procedures Referre d By Contact Referred To Contact Closed Radiology Diagnoses Pneumonia of right middle lobe due to infectious organism (HCC) Procedures CT Chest W Contrast HC CT CHEST W/ CONTRAST Eliseo Garcia, 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 Oral CT ABDOMEN PELVIS W WO CONTRAST CHG CT SCAN,ABDOMENT AND PELVIS,COMBO CHG CT SCAN,ABDOMENT AND PELVIS,W CONTRAST Ruth Farah MD [address] [place] [address] Reason Comments Dizziness patient was visiting in [...] Study With Bronchodilator Pa Patel MD [address] [address] Status Reason Specialty Diagnoses / Procedures Referre d By Contact Referred To Contact Open Radiology Diagnoses Pneumonia of right upper lobe due to infectious organism (HCC) Recurrent aspiration pneumonia (HCC) Procedures FL MODIFIED BARIUM SWALLOW W VIDEO HC FL MODIFIED BARIUM SWALLOW W VIDEO Mychal Bautista MD [address] [address] Status Reason Specialty Diagnoses / Procedures Referred By Contact Referred To Contact Open Specialty Services Required Speech Pathology / Speech Therapy Diagnoses Oropharyngeal dysphagia Mychal Bautista MD [address] [address] [facility] Speech Therapy [address] [place] [address] Specialty Diagnoses / Procedures Referred By Ronyac t Referred To Contact Cardiology Diagnoses Interstitial pulmonary disease, unspecified (CMS/HCC) Shortness of breath Procedures Transthoracic Echo (TTE) Complete NH ECHO TRANSTHORC R-T 2D W/WO M-MODE REC F-UP/LMTD NH DOP ECHOCARD COLOR FLOW VELOCITY MAPPING NH DOP ECHOCARD PULSE WAVE W/SPECTRAL F-UP/LMTD STD Rich Magana MD [facility] [address] [place] [address] Referral ID Status Reason Start Date Expiration Date Visits Requested Visits Authorized [id number] Authorized Perform Procedure 02/05/2023 08/04/2023 1 1 Reason Comments Migraine Intractable migraine Referral ID Status Reason Start Date Expiration Date V isits Requested Visits Authorized [id number] Pending Review 03/24/2023 03/23/2024 1 1 Reason Comments Follow-up Fatigue Specialty Diagnoses / Procedures Referred By Contac t Referred To Contact Diagnoses Intractable chronic migraine without aura and with status migrainosus Jodie Matthews MD [address] [place] [address] Reason Comments Migraine 6 month FUV Reason Comments Migraine Every 90 day Botox i njectionsonobotulinumtoxinA toxin A ([facility]- [id number] 01) Specialty Diagnoses / Procedures Referred By Contac t Referred To Contact Diagnoses Chronic migraine without aura without status migrainosus, not intractable Jodie Matthews MD [address] [place] [address] Referral ID Status Reason Start Date Expiration Date V isits Requested Visits Authorized [id number] Pending Review 07/15/2023 07/14/2024 1 1 Reason [...] syndrome Jodie Matthews MD [address] [place] [address] Referral ID Status Reason Start Date Expiration Date Visits Requested Visits Authorized [id number] Authorized Consult and Treat 09/22/2023 09/21/2024 1 1 Reason Comments Migraine Botulinum Toxin Injection Every 90 day B otox injectionsonobotulinumtoxinA toxin A ([facility]- 6231-1288 ) Referral ID Status Reason Start Date Expiration Date V isits Requested Visits Authorized [id number] Pending Review 10/12/2023 10/11/2024 1 1 Reason Comments Immunodeficiency Asthma Allergic Rhinitis 3 month follow up, A CT 8 Reason Comments Follow-up ACT 7 Reason Comments Follow-up Migraine Specialty Diagnoses / Procedures [facility] Ref[facility] To Contact Diagnoses Chronic migraine without aura without status migrainosus, not intractable Jessica Moore, RN ADMIT-STRADDLE TRUCK DRIVER [address] [place] [address] Phone: tel: fax: Referral ID Status Reason Start Date Expiration Date V isits Requested Visits Authorized [id number] Pending Review 04/07/2024 04/07/2025 1 1 Reason Comments Follow-up Reason Comments Migraine Botulinum Toxin Injection Every 90 day B otox injectionsonobotulinumtoxinA toxin A ([facility]- 5859-4708 01) Referral ID Status Reason Start Date Expiration Date V isits Requested Visits Authorized [id number] Pending Review 01/11/2024 01/10/2025 1 1 Specialty Diagnoses / Procedures Referred By Contac t Referred To Contact Diagnoses Intractable chronic migraine without aura and with status migrainosus Jodie Matthews MD [address] [place] [address] Phone: tel: fax: Referral ID Status Reason Start Date Expiration Date V isits Requested Visits Authorized [id number] Pending Review 05/11/2024 05/11/2025 1 1 Reason Comments Follow-up Migraine Headache started 05/05 07/26. And has yet to get relief. Treated with Sumatriptan Injection& tablet. Would like to try the Toradol protocol today. Dark room, no screens, has been trying to sleep. Specialty Diagnoses / Procedures [facility] Referred To Contact Diagnoses Chronic migraine without aura, intractable, with status migrainosus Jessica Moore, RN ADMIT-STRADDLE TRUCK DRIVER [address] [place] [address] Phone: tel: fax: Referral ID Status Reason Start Date Expiration Date V isits Requested Visits Authorized [id number] Pending Review 06/02/2024 06/02/2025 1 1 Reason Comments Asthma COPD with asthma Reason Comments Migraine Toradol Protocol Specialty Diagnoses / Procedures [facility] Referred To Contact Diagnoses Chronic migraine without aura without status migrainosus, not intractable Jessica Moore, RN ADMIT-STRADDLE TRUCK DRIVER [address] [place] [address] Phone: tel: fax: Referral ID Status Reason Start Date Expiration Date V isits Requested Visits Authorized [id number] Pending Review 07/06/2024 07/06/2025 1 1 Reason Comments Follow-up Reason Comments Botulinum Toxin Injection Specialty Diagnoses / Procedures [facility] Referred To Contact Diagnoses Intractable chronic migraine without aura and with status migrainosus Jodie Matthews MD [address] [place] [address] Phone: tel: fax: Referral ID Status Reason Start Date Expiration Date V isits Requested Visits Authorized [id number] Pending Review 08/10/2024 08/10/2025 1 1 Reason Comments Migraine Specialty Diagnoses / Procedures Referred By Contac t Referred To Contact Diagnoses Intractable chronic migraine without aura and with status migrainosus Jessica Moore, RN ADMIT-STRADDLE TRUCK DRIVER [address] [place] [address] Phone: tel: fax: Referral ID Status Reason Start Date Expiration Date V isits Requested Visits Authorized [id number] Pending Review 09/12/2024 09/12/2025 1 1 Reason [...] Juan F Pettit MD Other Provider Active Kerwin Rajput MD Other Provider Active Aureliano Black [...] Melissa Wilson APRN Attending Provider Acti ve Shipping And Receiving Operator Relationship Specialty Start Date End Date Rachel Rayo MD PCP - General 09/19/10 Shipping And Receiving Operator Relationship Specialty Start Date End Date Rachel Rayo MD PCP - General 09/19/10 Shipping And Receiving Operator Relationship Specialty Start Date End Date Rachel Rayo MD PCP - General 09/19/10 Shipping And Receiving Operator Relationship Specialty Start Date End Date Rachel Rayo MD PCP - General 09/19/10 Shipping And Receiving Operator Relationship Specialty Start Date End Date Rachel Rayo MD PCP - General 09/19/10 Shipping And Receiving Operator Relationship Specialty Start Date End Date Rachel Rayo MD PCP - General 09/19/10 Shipping And Receiving Operator Relationship Specialty Start Date End Date Rachel Rayo MD PCP - General 09/19/10 Shipping And Receiving Operator Relationship Specialty Start Date End Date Rachel Rayo MD [address] [place] [phone] PCP - General 09/19/10 Shipping And Receiving Operator Relationship Specialty Start Date End Date Rachel Rayo MD [address] [place] [id number] PCP - General 09/19/10 Team Status: Active [...] APRN Attending Provider Active Start: November 23 Shipping And Receiving Operator Relationship Specialty Start Date End Date Rachel Rayo MD [address] [place] [phone] PCP - General 09/19/10 Courtney Brown MD [address] [place] [address], [facility] [address] [place] [address] Referring Physician Allergy and Immunology 02/12/24 Shipping And Receiving Operator Relationship Specialty Start Date End Date Rachel Rayo MD [address] [place] [phone] PCP - General 09/19/10 Courtney Brown MD [address] [facility], [address] [address] Referring Physician Allergy and Immunology 02/12/24 Shipping And Receiving Operator Relationship Specialty Start Date End Date Rachel Rayo MD [address] [place] [address] PCP - General 09/19/10 Courtney Brown MD [address] [facility], [address] [address] Referring Physician Allergy and Immunology 02/12/24 Shipping And Receiving Operator Relationship Specialty Start Date End Date Rachel Rayo MD [address] [place], [place] [phone] PCP - General 09/19/10 Courtney Brown MD [address] [address] Referring Physician Allergy and Immunology 02/12/24 Shipping And Receiving Operator Relationship Specialty Start Date End Date Rachel Rayo MD [address] [place] [phone] PCP - General 09/19/10 Courtney Brown MD [address] [address] Referring Physician Allergy and Immunology 02/12/24 Shipping And Receiving Operator Relationship Specialty Start Date End Date Rachel Rayo MD [address] [place] [phone] PCP - General 09/19/10 Shipping And Receiving Operator Relationship Specialty Start Date End Date Rachel Rayo MD [address] [place] [id number] PCP - General 09/19/10 Courtney Brown MD [address] [address] Referring Physician Allergy and Immunology 02/12/24 Team [...] Attending Provider Active Start: May 31, 2024 Shipping And Receiving Operator Relationship Specialty Start Date End Date Rachel Rayo MD [address] [place], [place] [id number] PCP - General 09/19/10 Courtney Brown MD [address] [place] [id number] Referring Physician Allergy and Immunology 02/12/24 Shipping And Receiving Operator Relationship Specialty Start Date End Date Rachel Rayo MD [address] [place] [id number] PCP - General 09/19/10 Courtney Brown MD [address] [id number] Referring Physician Allergy and Immunology 02/12/24 Team [...] July 07, 2024 End: July 07, 2024 Shipping And Receiving Operator Relationship Specialty Start Date End Date Rachel Rayo MD [address] [place] [id number] PCP - General 09/19/10 Courtney Brown MD [address] [place] [address], [address] [address] Referring Physician Allergy and Immunology 02/12/24 Shipping And Receiving Operator Relationship Specialty Start Date End Date Rachel Rayo MD [address] [place] [id number] PCP - General 09/19/10 Courtney Brown MD [facility], [facility] [address] [place], [place] [id number] Referring Physician Allergy and Immunology 02/12/24 Shipping And Receiving Operator Relationship Specialty Start Date End Date Rachel Rayo MD [address] [place] [id number] PCP - General 09/19/10 Courtney Brown MD [address] [facility], [facility] [address] [place], [place] [phone] Referring Physician Allergy and Immunology 02/12/24 Team Status: Inactive Member Role Status Dates Rachel Rayo MD Primary Care Provide r, Attending Provider Active Start: August 24, 2024 End: August 24, 2024 Shipping And Receiving Operator Relationship Specialty Start Date End Date Rachel Rayo MD [address] [place] [address] [place] [address] PCP - General 09/19/10 Courtney Brown MD [address] [facility], [facility] [address] [place] [phone] Referring Physician Allergy and Immunology 02/12/24 Goals [...] BE BASED ON THE PRIMARY CLINICAL RECORDS. [facility]. provides no warranty or guarantee of the accuracy or completeness of information in this document.
[2024-10-02 07:44] LABS: Lactate/Lactic Acid 1.9 mmol/L (0.4-2.0)
[2024-10-02 09:07] LABS: Influenza Virus A Antigen Negative; Influenza Virus B Antigen Negative; Internal Control Within Normal Limits; Respiratory Syncytial Virus Not Detected (NOT DETECTE)
[2024-10-02 09:10] LABS: BUN Creatinine Ratio 13.9; Calcium 7.6 mg/dL (8.5-10.1); Carbon Dioxide 22.3 mmol/L (21.0-32.0); Chloride 109 mmol/L (98-107); Estimated GFR (African America 54 (>=60 mL/min/1.73m^2); Estimated GFR (Non-African Ame 45 (>=60 mL/min/1.73m^2); Glucose 160 mg/dL (74-106); Potassium 3.3 mmol/L (3.5-5.1); Sodium 142 mmol/L (136-145)
[2024-10-02 09:14] LABS: Alanine Aminotransferase 24 U/L (16-63); Albumin Globulin Ratio 0.9; Albumin Level 2.9 g/dL (3.4-5.0); Alkaline Phosphatase 113 U/L (46-116); Aspartate Amino Transferase 15 U/L (15-37); Bilirubin Direct 0.1 mg/dL (0.0-0.2); Bilirubin Total 0.5 mg/dL (0.2-1.0); Globulin 3.2 g/dL; Magnesium 1.7 mg/dL (1.8-2.4); Total Protein 6.1 g/dL (6.4-8.2)
[2024-10-02 09:23] LABS: INR 1.63; Partial Thromboplastin Time 32.9 sec (22.3-36.2); Prothrombin Time 16.5 sec (9.0-11.6)
[2024-10-02 09:28] LABS: Troponin I High Sensitivity 123.4 pg/mL (4.0-76.1)
[2024-10-02] MEDS: LACTATED RINGER'S SOLUTION 1,000 ML 100 ML IV ×2 (09:34→19:05)
[2024-10-02] MEDS: VENLAFAXINE HCL ER 150 MG CAPSULE 300 MG PO (09:35)
[2024-10-02] MEDS: PANTOPRAZOLE SODIUM 40 MG VIAL IV (09:35)
[2024-10-02] MEDS: POTASSIUM CHLORIDE 10 MEQ ER TABLET 20 MEQ PO ×2 (09:35→20:52)
[2024-10-02] MEDS: CELECOXIB 100 MG CAPSULE 400 MG PO ×2 (09:35→21:02)
[2024-10-02] MEDS: PREGABALIN 100 MG CAPSULE PO ×2 (09:35→20:53)
[2024-10-02] MEDS: ASPIRIN 81 MG TABLET.DR 162 MG PO (09:36)
[2024-10-02] MEDS: TOPIRAMATE 25 MG TABLET 50 MG PO ×3 (09:36→20:53)
[2024-10-02] MEDS: LEVOFLOXACIN IN DEXTROSE 5 % 750 MG/150 ML PREMIX 100 MG IV (09:46)
[2024-10-02] MEDS: HYDROCORTISONE SODIUM SUCC PF 100 MG/2 ML VIAL IVP ×2 (09:54→17:31)
[2024-10-02] MEDS: TOPIRAMATE 100 MG TABLET PO (09:54)
--- NOTE | 2024-10-02 10:38 | P.HP_ITS ---
HPI H&P: HPI History of Present Illness Chief complaint: other SEPSIS WITH SEPTIC SHOCK PNEUMONI RANJITH Narrative: Patient presented with altered mental status found to have right-sided weakness, he has a history of stroke which resulted in significant left-sided weakness although he does ambulate with a cane, but now with significant right sided weakness, uncertain if this is related to the sepsis or not CT scan head was negative I saw patient up in the medical surgical floor, no real specific complaint just feeling very fatigued, does have some word finding issues Opioid HPI Opioid Management Most Recent Pain and Opioid Data: Last Pain Scale 6 10/31/23, 02:00 Last Pain Assessment Today, 08:00 Last ORT Total Score 2 Today, 07:44 Last ORT Risk Category Low Risk Today, 07:44 Review of Systems ROS Status of ROS 10 or more systems reviewed and unremark able except as noted in history and below PFSH [facility] Medical History HLD (hyperlipidemia) ?E78.5 - Hyperlipidemia, unspecified (ICD-10) HTN (hypertension) ?I10 - Essential (primary) hypertension (ICD-10) Chronic respiratory failure with hypoxia ?J96.11 - Chronic respiratory failure with hypoxia (ICD-10) Vertigo ?R42 - Dizziness and giddiness (ICD-10) Concussion with loss of consciousness ?S06.0X9A - Concussion with loss of consciousness of unspecified duration, initial encounter (ICD-10) Stroke ?I63.9 - Cerebral infarction, unspecified (ICD-10) Depression ?F32.A - Depression, unspecified (ICD-10) Chronic migraine 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 (ICD-10) Asthma ?J45.909 - Unspecified asthma, uncomplicated (ICD-10) ILD (interstitial lung disease) ?J84.9 - Interstitial pulmonary disease, unspecified (ICD-10) Surgical History H/O laminectomy ?Z98.890 - Other specified postprocedural states (ICD-10) History of hip replacement, total ?Z96.649 - Presence of unspecified artificial hip joint (ICD-10) H/O: knee surgery ?Z98.890 - Other specified postprocedural states (ICD-10) Family History Father Family history of CHF (congestive heart failure) Family history of cancer Family history of myocardial infarction Mother Family history of COPD (chronic obstructive pulmonary disease) Family history of cancer Family history of hypertension Family history of myocardial infarction Family history of stroke Brother Family history of cancer Uncle Family history of cancer Aunt Family history of diabetes mellitus Social History (Updated 10/02/24 @ 08:06 by Ly Taveras RN) Within the past year, how often did you have a drink containing alcohol: never Score interpretation: A score less than 4 is consistent with normal alcohol consumption. Smoking status: Never smoker Non-prescribed substance use: denies use Previous occupational history: retired Highest level of school completed/degree received: Doctoral degree Are you now , , , , never or living with a partner: In a typical week, how many times do you talk on the telephone with family, friends, or neighbors: twice per week How often do you get together with friends or relatives: once per week How often do you attend mormonism or hoahaoism services: 4 or more times per year Do you belong to any clubs or organizations such as mormonism groups unions, [employer] or athletic groups, or school groups: yes Total score: 3 Score interpretation: A score of greater than or equal to 2 indicates the lowest level of social isolation. Little interest or pleasure in doing things: not at all Feeling down, depressed, or hopeless: not at all Feel stressed/tense/nervous/anxious/difficulty sleeping: to some extent Meds Home Medications and Allergies Home Medications ?Medication ?Instructions ?Recorded ?Confirmed ?Type amitriptyline 100 mg tablet 100 mg PO .QHS 10/15/23 History atorvastatin 40 mg tablet 40 mg PO .QHS 10/15/2310/02 History budesonide 160 mcg-glycopyr 9 2 inh inhalation DAILY 0 10/15/23 10/02/24 History mcg-formot 4.8 mcg/actuation HFA inhaler (Breztri Aerosphere) celecoxib 200 mg capsule 400 mg PO Q12H 10/15/2305/28 History folic acid 1 mg tablet 1 mg PO DAILY 10/15/2310/02 History losartan 25 mg tablet 25 mg PO DAILY 10/15/2305/28 History methenamine hippurate 1 gram tablet 1 g PO BID 4 10/02/24 History omeprazole 40 mg capsule,delayed 40 mg PO BID 10/15/23 10/02/24 History release spironolactone 50 mg tablet 50 mg PO DAILY 10/15/23 History topiramate 100 mg tablet 100 mg PO DAILY 10/15/2305/28 History venlafaxine 150 mg 300 mg PO DAILY 10/15/2305/28 History capsule,extended release 24 hr verapamil 120 mg tablet 120 mg PO .QHS 10/15/2305/28 History amlodipine 5 mg tablet 5 mg PO DAILY 10/30/2310/02 History clonidine HCl 0.1 mg tablet 0.1 mg PO BID 10/30/2305/28 History cyanocobalamin (vitamin B-12) 1,000 mcg PO DAILY 10/2910/02/24 History 1,000 mcg capsule fluticasone propionate 50 2 spray intranasal DAILY PRN nasal 10/30/23 10/02/24 History mcg/actuation nasal congestion spray,suspension potassium chloride 20 mEq 20 meq PO BID 10/30/2310/02 History tablet,extended release(part/cryst) (Klor-Con M) topiramate 50 mg tablet 50 mg PO TID 10/30/23 History galcanezumab-gnlm 120 mg/mL 120 mg subcut DAILY 10/02/24 History subcutaneous pen injector (Emgality Pen) losartan 100 mg tablet 100 mg PO DAILY 09/05/2405/28 History oxycodone-acetaminophen 5 mg-325 0.5 tab PO Q12H PRN p ain 09/05/24 10/02/24 History mg tablet pregabalin 100 mg capsule 100 mg PO Q12H 09/05/2405/28 History topiramate 200 mg tablet 200 mg PO Q12H 09/05/2405/28 History budesonide 0.5 mg/2 mL suspension 0.5 mg inhalation Q1 2H 10/02/24 10/02/24 History for nebulization meclizine 12.5 mg tablet 12.5 mg PO DAILY PRN dizzine ss 10/02/24 10/02/24 History sumatriptan succinate 100 mg tablet 100 mg PO Q2H PRN migraine headache 10/02/24 10/02/24 History sumatriptan succinate 6 mg/0.5 mL 6 mg subcut Q2H PRN migraine 10/02/24 10/02/24 History subcutaneous pen injector headache Allergies Allergy/AdvReac Type Severity Reaction Status Date / Time baclofen Allergy Severe Unknown Verified 10/02/24 00:37 ciprofloxacin (From Cipro) Allergy Severe Unknown Verified 10/02/24 00:37 indomethacin (From Indocin) Allergy Severe Unknown Verified 10/02/24 00:37 Penicillins Allergy Severe Unknown Verified 10/02/24 00:37 Sulfa (Sulfonamide Allergy Severe Unknown Verified 10/02/24 00:37 Antibiotics) propranolol Allergy Unknown Verified 10/02/24 00:37 Exam Constitutional Vital Signs, click to edit/add: Last Vital Signs Temp 98.2 F 10/02/24 07:44 Pulse 98 H 10/02/24 10:30 Resp 21 H 10/02/24 10:30 BP 119/84 10/02/24 09:35 Pulse Ox 98 10/02/24 10:30 O2 Del Method Nasal Cannula 10/02/24 07:44 O2 Flow Rate 4 10/02/24 07:44 Documenting provider has reviewed patient's vital signs: yes Common normals: apparent distress (Severe weakness) HENMT Common normals: normocephalic and head/scalp atraumatic Chest Common normals: inspection of chest normal Respiratory Common normals: normal respiratory effort Auscultation: rhonchi Cardio Common normals: regular rate, regular rhythm and no murmurs GI Common normals: Normal to inspection, nondistended, normoactive bowel sounds present, soft to palpation and non-tender Extremity Common normals: normal to inspection Neuro Common normals: CN's II-XII intact bilaterally; does not move all extremities (Minimal movement left side some movement right-sided) Results Labs Labs: Short CBC 10/02/24 Range/Units 00:54 WBC 15.6 H (4.0-11.0) 10^3/uL Hgb 19.6 H (14.0-18.0) g/dL Hct 57.6 H (42.0-54.0) % Plt Count 418 (150-450) 10^3/uL BMP 10/02/24 10/02/24 00:54 08:47 Sodium 137 142 Potassium 2.6 L* 3.3 L Chloride 99 109 H Carbon Dioxide 23.5 22.3 BUN 23.0 H 22.0 H Creatinine 2.06 H 1.58 H Glucose 113 H 160 H Calcium 9.5 7.6 L Liver Function 10/02/24 Range/Units 08:47 Total Bilirubin 0.5 (0.2-1.0) mg/dL Direct Bilirubin 0.1 (0.0-0.2) mg/dL AST 15 (15-37) U/L ALT 24 (16-63) U/L Alkaline Phosphatase 113 (46-116) U/L Albumin 2.9 L (3.4-5.0) g/dL Urine 10/02/24 Range/Units 03:56 Urine Color Lt. yellow (YELLOW) Urine Clarity Clear (CLEAR) Urine pH 6.0 (5.0-9.0) Ur Specific Barn[place] 1.015 (1.005-1.025) Urine Protein Trace (NEG/TRACE) mg/dL Urine Glucose (UA) Negative (NEGATIVE) mg/dL ABG ABG results: 10/02/24 01:19 ABG pH 7.387 ABG pCO2 27.4 L ABG pO2 53.3 L* ABG HCO3 16.5 L ABG O2 Saturation 89.3 ABG Base Excess -8.6 L Assessment and Plan Assessment and Plan (1) Weakness: (2) Left lower lobe pneumonia: (3) Acute hypokalemia: (4) Septic shock: (5) Acute kidney injury: (6) Bacterial pneumonia: (7) HTN (hypertension): Qualifiers: Hypertension type: primary hypertension Qualified Code(s): I10 - Essential (primary) hypertension (8) HLD (hyperlipidemia): Qualifiers: Hyperlipidemia type: unspecified Qualified Code(s): E78.5 - Hyperlipidemia, unspecified (9) Asthma: Qualifiers: Asthma complication type: with acute exacerbation Asthma persistence: persistent Asthma severity: severe Qualified Code(s): J45.51 - Severe persistent asthma with (acute) exacerbation (10) Depression: (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 Admission findings: Sinus tachycardia, respiratory distress, severe hypotension blood pressure 77/68 with a MAP of 62 in the emergency room, acute hypoxia with O2 sat of 88% on room air, secondary to right upper lobe and left lower lobe pneumonia with acute UTI findings, significant leukocytosis with lactic acidosis resulting in acute kidney injury and severe sepsis Severe sepsis complicated by his immune deficiency from Anti-pneumococcal polysaccharide antibody deficiency-likely related to the pneumonia although urin e is positive as well, antibiotics IV broad-spectrum, blood urine and sputum culture pending Acute right-sided weakness-the case has been discussed with the telestroke team- they feel it is more related to metabolic syndrome as outlined above from the severe sepsis, reevaluate in a.m. Acute NSTEMI type II-EKG without change, troponin elevated, repeat troponins throughout the course of the day today likely related to the severe sepsis as outlined above Acute kidney injury stage II-baseline creatinine 0.96 when well, creatinine on admission of 2.06, this would be 214.6% above baseline with decreased urine output in the last 6 hours resulting in stage II acute kidney injury Polycythemia-this is likely related to the acute kidney injury and fluid status- repeat in a.m. Hypokalemia-supplement Coagulopathy secondary to severe sepsis-hold off on vitamin K, with ischemic stroke, INR not high, still at some risk for bleeding patient will be on IV Protonix to prevent gastric bleeding if you start to have signs of bleeding will give vitamin K at that time Hypomagnesemia-will start supplementation once he is able to take orals Insomnia-continue with home medications History of hypertension-holding hypertensive medications currently, off the clonidine need to watch her reflux tachycardia Hypercholesterolemia can hold for now medications Asthma-continue with home medications Migraine-currently no headache and will monitor GERD-IV Protonix Recurrent UTIs-maintain home preventive medications Neuropathy-continue with home medications Depression-continue with home medications Admission status: Patient presented emergency room with altered mental status and severe weakness found to have significant hypotension lactic acidosis consistent with severe sepsis likely related to pulmonary infection complicated by his immune deficiency, medically necessary treatment will span 2 midnights. Inpatient status in the stepdown unit
[2024-10-02 12:46] LABS: Troponin I High Sensitivity 175.9 pg/mL (4.0-76.1)
[2024-10-02] MEDS: 0.9 % SODIUM CHLORIDE 1,000 ML 500 ML IV ×2 (14:11→18:06)
[2024-10-02] MEDS: TOPIRAMATE 100 MG TABLET 200 MG PO ×2 (14:11→21:13)
[2024-10-02 15:40] LABS: Troponin I High Sensitivity 199.3 pg/mL (4.0-76.1)
[2024-10-02] MEDS: AMITRIPTYLINE HCL 50 MG TABLET 100 MG PO (21:01)
[2024-10-03] VITALS (65 sets, daily range): BP systolic 126–163; BP diastolic 77–96; PULSE 58–90; TEMP 36.4–36.7; O2SAT 92–100
[2024-10-03] MEDS: HYDROCORTISONE SODIUM SUCC PF 100 MG/2 ML VIAL IVP ×3 (01:53→17:36)
[2024-10-03] MEDS: ERTAPENEM SODIUM 1 GM in 0.9 % SODIUM CHLORIDE 50 ML IV (02:02)
--- NOTE | 2024-10-03 03:03 | PC.NURSE ---
patient angry and insisted that I remove the Rojas Cath. after we he woke up from sleeping. RN educated the importance of keeping accurate I/O and he told me remove it NOW! RN notified BRIAN Ramirez
[2024-10-03 05:29] LABS: Basophils Percent Auto 0.1 % (0.2-2.0); Eosinophils Percent Auto 0.1 % (0.9-7.0); Hematocrit 37.4 % (42.0-54.0); Hemoglobin 12.4 g/dL (14.0-18.0); Immature Granulocytes Abs Auto 0.06 10^3/uL (0.00-0.03); Immature Granulocytes Pct Auto 0.4 % (0.0-0.5); Lymphocytes Absolute Auto 0.6 10^3/uL (1.2-3.8); Lymphocytes Percent Auto 4.1 % (20.5-60.0); Mean Corpuscular HGB Conc 33.2 g/dL (29.9-35.2); Mean Corpuscular Volume 87.6 fL (80.0-94.0); Mean Platelet Volume 9.7 fL (9.5-13.5); Monocytes Absolute Auto 0.4 10^3/uL (0.3-0.8); Monocytes Percent Auto 2.9 % (1.7-12.0); Neutrophils Absolute Auto 12.6 10^3/uL (1.4-6.5); Neutrophils Percent Auto 92.4 % (43.0-75.0); Platelet Count 189 10^3/uL (150-450); Red Blood Count 4.27 10^6/uL (4.70-6.10); Red Cell Distribution Width 15.2 % (11.0-15.0); White Blood Count 13.6 10^3/uL (4.0-11.0)
[2024-10-03 05:43] LABS: INR 1.38; Prothrombin Time 14.2 sec (9.0-11.6)
[2024-10-03 06:05] LABS: Alanine Aminotransferase 19 U/L (16-63); Albumin Globulin Ratio 0.8; Albumin Level 2.4 g/dL (3.4-5.0); Alkaline Phosphatase 85 U/L (46-116); Anion Gap 16.5; Aspartate Amino Transferase 28 U/L (15-37); BUN Creatinine Ratio 19.8; Bilirubin Total 0.5 mg/dL (0.2-1.0); Calcium 7.5 mg/dL (8.5-10.1); Carbon Dioxide 19.4 mmol/L (21.0-32.0); Chloride 113 mmol/L (98-107); Estimated GFR (African America >60 (>=60 mL/min/1.73m^2); Estimated GFR (Non-African Ame >60 (>=60 mL/min/1.73m^2); Glucose 113 mg/dL (74-106); Potassium 4.9 mmol/L (3.5-5.1); Sodium 144 mmol/L (136-145); Total Protein 5.4 g/dL (6.4-8.2)
[2024-10-03] MEDS: LACTATED RINGER'S SOLUTION 1,000 ML 100 ML IV ×2 (06:06→17:01)
[2024-10-03] MEDS: TOPIRAMATE 25 MG TABLET 50 MG PO ×2 (06:07→20:26)
[2024-10-03] MEDS: TOPIRAMATE 100 MG TABLET PO (06:07)
[2024-10-03 06:15] LABS: Troponin I High Sensitivity 127.8 pg/mL (4.0-76.1)
--- NOTE | 2024-10-03 06:44 | P.PN_ITS ---
Progress Note: Subjective Subjective Interval history: Patient still generalized weakness, was more awake earlier in the morning than he has been on my exam, answers questions appropriately, did discuss his need to follow through with all the therapies that are being attempted to improve his sepsis Exam Constitutional Vital Signs, click to edit/add: Last Vital Signs Temp 97.8 F 10/03/24 04:00 Pulse 85 10/03/24 06:00 Resp 20 10/03/24 04:00 BP 163/95 H 10/03/24 04:00 Pulse Ox 97 10/03/24 06:00 O2 Del Method Room Air 10/03/24 04:00 O2 Flow Rate 2 10/03/24 04:00 Common normals: no apparent distress Chest Common normals: inspection of chest normal and palpation of chest normal Respiratory Common normals: normal respiratory effort, no retractions and clear to auscultation bilaterally Cardio Common normals: regular rate, regular rhythm and no murmurs GI Common normals: Normal to inspection, nondistended, normoactive bowel sounds present and non-tender Extremity Common normals: normal to inspection, full ROM and no clubbing, cyanosis or edema Neuro [place] Coma Scale: document GCS findings Common normals: oriented x3 Sensorium/orientation: awake (Still appears very fatigued) Other: She has significant right-sided weakness, he can move his arms and legs but minimally Progress Note: Objective Labs Labs: Short CBC 10/03/24 Range/Units 05:00 WBC 13.6 H (4.0-11.0) 10^3/uL Hgb 12.4 L (14.0-18.0) g/dL Hct 37.4 L (42.0-54.0) % Plt Count 189 (150-450) 10^3/uL BMP 10/02/24 10/03/24 08:47 05:00 Sodium 142 144 Potassium 3.3 L 4.9 Chloride 109 H 113 H Carbon Dioxide 22.3 19.4 L BUN 22.0 H 24.0 H Creatinine 1.58 H 1.21 Glucose 160 H 113 H Calcium 7.6 L 7.5 L Liver Function 10/02/24 10/03/24 Range/Units 08:47 05:00 Total Bilirubin 0.5 0.5 (0.2-1.0) mg/dL Direct Bilirubin 0.1 (0.0-0.2) mg/dL AST 15 28 (15-37) U/L ALT 24 19 (16-63) U/L Alkaline Phosphatase 113 85 (46-116) U/L Albumin 2.9 L 2.4 L (3.4-5.0) g/dL Progress Note: A&P Assessment and Plan (1) Weakness: (2) Left lower lobe pneumonia: (3) Acute hypokalemia: (4) Septic shock: (5) Acute kidney injury: (6) Bacterial pneumonia: (7) HTN (hypertension): Qualifiers: Hypertension type: primary hypertension Qualified Code(s): I10 - Essential (primary) hypertension (8) HLD (hyperlipidemia): Qualifiers: Hyperlipidemia type: unspecified Qualified Code(s): E78.5 - Hyperlipidemia, unspecified (9) Asthma: Qualifiers: Asthma complication type: with acute exacerbation Asthma persistence: p ersistent Asthma severity: severe Qualified Code(s): J45.51 - Severe persistent asthma with (acute) exacerbation (10) Depression: (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 Admission findings: Sinus tachycardia, respiratory distress, severe hypotension blood pressure 77/68 with a MAP of 62 in the emergency room, acute hypoxia with O2 sat of 88% on room air, secondary to right upper lobe and left lower lobe pneumonia with acute UTI findings, significant leukocytosis with lactic acidosis resulting in acute kidney injury and severe sepsis Severe sepsis complicated by his immune deficiency from Anti-pneumococcal polysaccharide antibody deficiency-likely related to the pneumonia although urine is positive as well, check on urine culture, maintain current antibiotics, white blood cell count is improving Acute right-sided weakness-the case has been discussed with the telestroke team- telestroke team to reevaluate today Acute NSTEMI type II-echocardiogram pending Acute kidney injury stage II-baseline creatinine 0.96 when well, creatinine on admission of 2.06, this would be 214.6% above baseline with decreased urine output in the last 6 hours resulting in stage II acute kidney injury-improved today, back to baseline Polycythemia-this is likely related to the acute kidney injury and fluid status-hemoglobin down significantly likely secondary to fluid resuscitation will check occult blood Hypokalemia-supplement Coagulopathy secondary to severe sepsis-INRs are improving, Hypomagnesemia-supplement Insomnia-continue with home medications History of hypertension-holding hypertensive medications currently, off the clonidine need to watch her reflux tachycardia Hypercholesterolemia can hold for now medications Asthma-continue with home medications Migraine-currently no headache and will monitor GERD-IV Protonix Recurrent UTIs-maintain home preventive medications, checking on urine culture Neuropathy-continue with home medications Depression-continue with home medications Admission status: Patient presented emergency room with altered mental status and severe weakness found to have significant hypotension lactic acidosis consistent with severe sepsis likely related to pulmonary infection complicated by his immune deficiency, medically necessary treatment will span 2 midnights. Inpatient status in the stepdown unit ? Urinary Catheter Management Urinary Catheter Management Urethral: Cath placed during this visit: yes, but has since been removed by the nurse Insertion date: 10/02/24 Insertion time: 14:20 Removal date: 10/03/24 Removal time: 02:15
--- NOTE | 2024-10-03 08:58 | CM.NOTE ---
Rounds made with Dr. Deshpande, no discharge for patient today.
--- NOTE | 2024-10-03 09:19 | CM.NOTE ---
Important Message From Medicare discussed with pt, pt verbalizes understanding and asks for Patient Care to sign d/t weakness. Signed paper, original given to pt and copy placed in pt's chart.
[2024-10-03] MEDS: VENLAFAXINE HCL ER 150 MG CAPSULE 300 MG PO (09:23)
[2024-10-03] MEDS: ENOXAPARIN SODIUM 80 MG/0.8 ML SYRINGE SUBQ (09:23)
[2024-10-03] MEDS: CELECOXIB 100 MG CAPSULE 400 MG PO ×2 (09:23→20:26)
[2024-10-03] MEDS: CARVEDILOL 6.25 MG TABLET PO ×2 (09:24→20:26)
[2024-10-03] MEDS: LOSARTAN POTASSIUM 50 MG TABLET 100 MG PO (09:24)
[2024-10-03] MEDS: PREGABALIN 100 MG CAPSULE PO ×2 (09:25→20:27)
[2024-10-03] MEDS: PANTOPRAZOLE SODIUM 40 MG VIAL IV (09:25)
[2024-10-03] MEDS: POTASSIUM CHLORIDE 10 MEQ ER TABLET 20 MEQ PO ×2 (09:25→20:27)
[2024-10-03] MEDS: ASPIRIN 81 MG TABLET.DR 162 MG PO (09:25)
--- NOTE | 2024-10-03 10:34 | SWNOTE1 ---
Met with pt to discuss PT/OT recommendation for assisted. Pt says he will only go to [facility] inpatient rehab. Monserrat, director case, called there to inquire about sending referral. Referral sent including facesheet, ER note, H&P, progess note, PT/OT notes, vitals, nursing notes, visit medications, and case management notes.
[2024-10-03] MEDS: MAGNESIUM OXIDE 400 MG TABLET PO ×2 (11:11→20:26)
--- NOTE | 2024-10-03 13:52 | CM.NOTE ---
Called [facility]hab [place] to see if they received referral , message left for
--- NOTE | 2024-10-03 15:19 | CM.NOTE ---
Called [facility] to check on pt's home oxygen order. Last order received was 3L NC at .
--- NOTE | 2024-10-03 15:23 | CM.NOTE ---
[facility] called and they are able to accept pt for skilled and will start pt's precert. Updated pt and son.
[2024-10-03] MEDS: IPRATROPIUM/ALBUTEROL SULFATE 3 ML AMPUL.NEB IH (16:21)
[2024-10-03] MEDS: AMITRIPTYLINE HCL 50 MG TABLET 100 MG PO (20:26)
[2024-10-03] MEDS: TOPIRAMATE 100 MG TABLET 200 MG PO (20:26)
[2024-10-04] VITALS (27 sets, daily range): BP systolic 152–178; BP diastolic 93–111; PULSE 54–83; TEMP 36.4–36.8; O2SAT 93–100
[2024-10-04] MEDS: LACTATED RINGER'S SOLUTION 1,000 ML 100 ML IV ×2 (01:44→14:58)
[2024-10-04] MEDS: HYDROCORTISONE SODIUM SUCC PF 100 MG/2 ML VIAL IVP ×3 (01:44→17:16)
[2024-10-04] MEDS: ERTAPENEM SODIUM 1 GM in 0.9 % SODIUM CHLORIDE 50 ML IV (01:44)
[2024-10-04 05:31] LABS: Basophils Percent Auto 0.1 % (0.2-2.0); Eosinophils Percent Auto 0.1 % (0.9-7.0); Hematocrit 35.4 % (42.0-54.0); Hemoglobin 11.7 g/dL (14.0-18.0); Immature Granulocytes Abs Auto 0.03 10^3/uL (0.00-0.03); Immature Granulocytes Pct Auto 0.4 % (0.0-0.5); Lymphocytes Absolute Auto 0.8 10^3/uL (1.2-3.8); Lymphocytes Percent Auto 9.7 % (20.5-60.0); Mean Corpuscular HGB Conc 33.1 g/dL (29.9-35.2); Mean Corpuscular Hemoglobin 29.3 pg (25.9-34.0); Mean Corpuscular Volume 88.7 fL (80.0-94.0); Mean Platelet Volume 9.8 fL (9.5-13.5); Monocytes Absolute Auto 0.3 10^3/uL (0.3-0.8); Monocytes Percent Auto 3.7 % (1.7-12.0); Platelet Count 260 10^3/uL (150-450); Red Blood Count 3.99 10^6/uL (4.70-6.10); Red Cell Distribution Width 15.3 % (11.0-15.0); White Blood Count 8.1 10^3/uL (4.0-11.0)
[2024-10-04 05:44] LABS: INR 1.17; Prothrombin Time 12.2 sec (9.0-11.6)
--- NOTE | 2024-10-04 05:56 | P.PN_ITS ---
Progress Note: Subjective Subjective Interval history: Unofficial patient up in the medical surgical floor stepdown unit, patient had complete altered mental status, unable to arouse at all even with sternal rub, ordered a stat CT scan of his head, patient returned from the stat CT scan of his head he woke up. No specific complaints, I when I went back up to see him he was up and ambulating with physical therapy at the time Exam Constitutional Vital Signs, click to edit/add: Last Vital Signs Temp 98.2 F 10/04/24 04:39 Pulse 62 10/04/24 04:39 Resp 15 10/04/24 04:39 BP 154/93 H 10/04/24 04:39 Pulse Ox 95 10/04/24 04:39 O2 Del Method Room Air 10/04/24 04:39 O2 Flow Rate 2 10/03/24 04:00 Common normals: apparent distress (Severe altered mental status on initial presentation this morning, rst) Exam limitations: altered mental status (When I went back up to see patient was up and ambulating with therapy ) Chest Common normals: inspection of chest normal and palpation of chest normal Respiratory Common normals: normal respiratory effort, no retractions and clear to auscultation bilaterally Auscultation: no rales and no rhonchi Cardio Common normals: regular rate, regular rhythm, S1 normal heart sound and S2 normal heart sound GI Common normals: Normal to inspection, nondistended, normoactive bowel sounds present, non-tender, no hepatosplenomegaly and no masses Extremity Common normals: normal to inspection, full ROM and no clubbing, cyanosis or edema Neuro Daysi Coma Scale: document GCS findings Common normals: oriented x3 Sensorium/orientation: awake (Still appears very fatigued) Other: She has significant right-sided weakness, he can move his arms and legs but minimally Progress Note: Objective Labs Labs: Short CBC 10/04/24 Range/Units 05:09 WBC 8.1 (4.0-11.0) 10^3/uL Hgb 11.7 L (14.0-18.0) g/dL Hct 35.4 L (42.0-54.0) % Plt Count 260 (150-450) 10^3/uL BMP 10/03/24 05:00 Sodium 144 Potassium 4.9 Chloride 113 H Carbon Dioxide 19.4 L BUN 24.0 H Creatinine 1.21 Glucose 113 H Calcium 7.5 L Liver Function 10/03/24 Range/Units 05:00 Total Bilirubin 0.5 (0.2-1.0) mg/dL AST 28 (15-37) U/L ALT 19 (16-63) U/L Alkaline Phosphatase 85 (46-116) U/L Albumin 2.4 L (3.4-5.0) g/dL Progress Note: A&P Assessment and Plan (1) Weakness: (2) Left lower lobe pneumonia: (3) Acute hypokalemia: (4) Septic shock: (5) Acute kidney injury: (6) Bacterial pneumonia: (7) HTN (hypertension): Qualifiers: Hypertension type: primary hypertension Qualified Code(s): I10 - Essential (primary) hypertension (8) HLD (hyperlipidemia): Qualifiers: Hyperlipidemia type: unspecified Qualified Code(s): E78.5 - Hyperlipidemia, unspecified (9) Asthma: Qualifiers: Asthma complication type: with acute exacerbation Asthma persistence: persistent Asthma severity: severe Qualified Code(s): J45.51 - Severe persistent asthma with (acute) exacerbation (10) Depression: (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 Admission findings: Sinus tachycardia, respiratory distress, severe hypotension blood pressure 77/68 with a MAP of 62 in the emergency room, acute hypoxia with O2 sat of 88% on room air, secondary to right upper lobe and left lower lobe pneumonia with acute UTI findings, significant leukocytosis with lactic acidosis resulting in acute kidney injury and severe sepsis Severe sepsis complicated by his immune deficiency from Anti-pneumococcal polysaccharide antibody deficiency-likely related to the pneumonia although urine is positive as well, check on urine culture, maintain current antibiotics, white blood cell count is improving check on urine culture today Acute right-sided weakness-the case has been discussed with the telestroke team- telestroke team to reevaluate today, CT scan the head this morning without bleed, MRI scan later today, severe altered mental status this morning, plan per telestroke team Acute NSTEMI type II-echocardiogram pending Acute kidney injury stage II-baseline creatinine 0.96 when well, creatinine on admission of 2.06, this would be 214.6% above baseline with decreased urine output in the last 6 hours resulting in stage II acute kidney injury-improved today,-back to baseline Polycythemia-this is likely related to the acute kidney injury and fluid status- hemoglobin down significantly likely secondary to fluid resuscitation will check occult blood occult blood pending Jaogjmhlout-shravosrwl-ucjaoh Coagulopathy secondary to severe sepsis-INRs are improving, daily Hypomagnesemia-supplement, increase supplementation Insomnia-continue with home medications History of hypertension-holding hypertensive medications currently, off the clonidine need to watch her reflux tachycardia Hypercholesterolemia can hold for now medications Asthma-continue with home medications Migraine-currently no headache and will monitor GERD-IV Protonix Recurrent UTIs-maintain home preventive medications, checking on urine culture Neuropathy-continue with home medications Depression-continue with home medications Admission status: Patient presented emergency room with altered mental status and severe weakness found to have significant hypotension lactic acidosis consistent with severe sepsis likely related to pulmonary infection complicated by his immune deficiency, medically necessary treatment will span 2 midnights. Inpatient status in the stepdown unit, patient will be require extensive rehabilitation, excellent rehabilitation candidate ? Urinary Catheter Management Urinary Catheter Management Urethral: Cath placed during this visit: yes, but has since been removed by the nurse Insertion date: 10/04/24 Insertion time: 05:45 Removal date: 10/03/24 Removal time: 02:15
[2024-10-04 05:57] LABS: Alanine Aminotransferase 15 U/L (16-63); Albumin Globulin Ratio 0.9; Albumin Level 2.5 g/dL (3.4-5.0); Alkaline Phosphatase 75 U/L (46-116); Aspartate Amino Transferase 14 U/L (15-37); Bilirubin Total 0.3 mg/dL (0.2-1.0); Calcium 8.2 mg/dL (8.5-10.1); Carbon Dioxide 17.4 mmol/L (21.0-32.0); Chloride 113 mmol/L (98-107); Estimated GFR (African America >60 (>=60 mL/min/1.73m^2); Estimated GFR (Non-African Ame >60 (>=60 mL/min/1.73m^2); Globulin 2.8 g/dL; Glucose 117 mg/dL (74-106); Potassium 4.4 mmol/L (3.5-5.1); Sodium 141 mmol/L (136-145); Total Protein 5.3 g/dL (6.4-8.2)
[2024-10-04 05:58] LABS: BUN Creatinine Ratio 31.3; Magnesium 1.7 mg/dL (1.8-2.4)
--- NOTE | 2024-10-04 07:47 | CT_ITS ---
The [address] [address] Patient Name: VERNA NEELY MRN: [id number] date: 1960 Sex: M Assigned Patient Location: [place] Current Patient Location: [place] Accession/Order Number: [id number] Exam Date: 10/04/2024 08:49 Report Date: 10/04/2024 08:55 At the request of: MARCO ANTONIO HUNTLEY MD Procedure: CT head/brain wo con CT BRAIN WITHOUT CONTRAST: CLINICAL HISTORY: ams with decreased responsiveness COMPARISON: 10/02/2024 TECHNIQUE: Contiguous axial unenhanced images were obtained through the brain. This CT exam was performed using one or more following dose reduction techniques: Automated exposure control, adjustment of the mA and/or kV according to patient size, or use of iterative reconstruction technique. FINDINGS: There is mild cortical atrophy. The ventricles are normal in size and position. Minor, predominantly frontal white matter hypodensity is present, potentially microvascular disease. There are no additional areas of abnormal attenuation. There is no hemorrhage, mass effect or extra-axial collections. The imaged paranasal sinuses and mastoid air cells are clear. CT/CT head/brain wo con IMPRESSION: MINOR ATROPHY AND POTENTIAL MICROVASCULAR DISEASE. NO ACUTE INTRACRANIAL ABNORMALITY. Impression dictated by: Lauren Read M.D. 10/04/2024 8:55 AM Dictation Location: [place] [address] Electronically authenticated by: [id number] Y Date: 10/04/2024 08:55
[2024-10-04 08:10] LABS: PCO2 VBG 29.9 mmHg (40.0-52.0); pH VBG 7.364 (7.330-7.430)
--- NOTE | 2024-10-04 08:23 | CM.NOTE ---
Rounds made with Dr. Deshpande. Mr. Guoge somnolent. No discharge today.
[2024-10-04 09:00] LABS: Ammonia 27 umol/L (11-32)
[2024-10-04] MEDS: PANTOPRAZOLE SODIUM 40 MG VIAL IV (09:13)
[2024-10-04] MEDS: POTASSIUM CHLORIDE 10 MEQ ER TABLET 20 MEQ PO ×2 (09:13→22:38)
[2024-10-04] MEDS: LOSARTAN POTASSIUM 50 MG TABLET 100 MG PO (09:15)
[2024-10-04] MEDS: MAGNESIUM OXIDE 400 MG TABLET PO ×3 (09:17→22:39)
[2024-10-04] MEDS: CARVEDILOL 12.5 MG TABLET PO ×2 (09:18→22:38)
[2024-10-04] MEDS: CELECOXIB 100 MG CAPSULE 400 MG PO ×2 (09:18→22:39)
[2024-10-04] MEDS: VENLAFAXINE HCL ER 150 MG CAPSULE 300 MG PO (09:21)
--- NOTE | 2024-10-04 09:41 | REH.PTDLY ---
Physical Therapy Daily Note PT Daily Note/Assess Start: 10/04/24 09:32 Freq: Status: Active Protocol: Document 10/04/24 09:32 MICHELLELUKAS (Rec: 10/04/24 09:41 DILLAN [id number]) Physical Therapy Daily Note/Assessment Time In 08:55 Time Out 09:25 Subjective Pt sitting bedside with OT upon arrival. Pt fatigued. Therapeutic Exercise 7 Minutes (minutes) Therapeutic Exercise 0 Units Therapeutic Exercise Instructed in AA supine exs 10x on L with heel slides, Treatment hip abd slides, AP, QS and SLR. AAROM on R LE with AP, QS, heel slides. Pt has pain at posterior knee with hip abd slides and SLR, only performing 2x ea. Pt states has had this pain for about 1 month now and was seeing for it. Therapeutic Activity 11 Minutes (minutes) Therapeutic Activity 1 Units Therapeutic Activity Sit to stand transfers Mod A x2. Pt needs cues and Comments assistance for hand placement on RW. Gait training with RW 20 feet with Mod A to help advance and direct RW. Pt works with OT at [facility] for self care, with pt fatiguing during standing tolerance. Seated rest break after in bathroom prior to gait again. Cues for sit to stand transfers from chair still requiring Mod A x2. Gait 25 feet with several cues for pt to take larger strides with little improvement noted. Cues for pt to stay close to RW as well for safety. Encouraged sitting up in chair, but pt request to go back to bed. Requires Mod A x2 with sit to supine transfer. Total Therapy 18 Minutes Total Physical 1 Therapy Units Daily Note Summary Improved gait tolerance today, but still requires Mod A x2 for safety with transfers and gait. Weakness noted with supine exercises in [place] LEs. Pt will need SNF stay at [facility] for improved strength and independence.
--- NOTE | 2024-10-04 10:00 | SWNOTE1 ---
Faxed updates [facility]. Including progess note, PT/OT notes, labs, ct report, neuro consult.
[2024-10-04] MEDS: LEVOFLOXACIN IN DEXTROSE 5 % 750 MG/150 ML PREMIX 100 MG IV (10:12)
--- NOTE | 2024-10-04 10:28 | MR_ITS ---
[address] [address] Patient Name: VERNA NEELY MRN: [id number] date: 1960 Sex: M Assigned Patient Location: [place] Current Patient Location: [place] Accession/Order Number: [id number] Exam Date: 10/04/2024 15:21 Report Date: 10/04/2024 15:22 At the request of: MARCO ANTONIO HUNTLEY MD Procedure: MR angio head wo con MR angio neck wo con 10/04/2024 12:40 PM SIGNS AND SYMPTOMS: ^cva PROTOCOL: Axial 3-D xzet-gb-eslurz MRA of the neck without contrast with 3-D reconstructions COMPARISON: None FINDINGS: The common and internal carotid arteries are normal in course and caliber. The vertebral arteries are normal in course and caliber. There is no evidence of focal stenosis or occlusion. MR/MR angio head wo con IMPRESSION: No focal stenosis or occlusion within the neck. Impression dictated by: Josep Jacinto M.D. 10/04/2024 3:22 PM Addended on 10/04/2024 3:21:16 PM by Josep Jacinto M.D.. MR angio neck wo con 10/04/2024 11:15 AM SIGN OF SYMPTOMS: Altered mental status, unresponsive PROTOCOL: Axial 3-D lmkq-rr-bwbmvc MRA with 3-D reconstructions COMPARISON: 10/04/2024 FINDINGS: The superior cerebellar arteries, posterior inferior cerebellar arteries, and the basilar artery are within normal limits. The posterior cerebral arteries are unremarkable. The intracranial segments of the internal carotid arteries are within normal limits. There are normal anterior and middle cerebral arteries. Anterior communicating artery is patent. Posterior communicating arteries are hypoplastic which is a normal variant. The deep venous system and dural venous systems appear to be patent. IMPRESSION: No focal stenosis, occlusion, or aneurysmal dilatation. Dictation Location: [place] [address] Electronically authenticated by: [id number] Y Date: 10/04/2024 15:22
--- NOTE | 2024-10-04 10:28 | MR_ITS ---
The [address] [address] Patient Name: VERNA NEELY MRN: [id number] date: 1960 Sex: M Assigned Patient Location: [place] Current Patient Location: [place] Accession/Order Number: [id number] Exam Date: 10/04/2024 11:42 Report Date: 10/04/2024 11:46 At the request of: MARCO ANTONIO HUNTLEY MD Procedure: MR head/brain wo con MR head/brain wo con 10/04/2024 11:40 AM SIGN AND SYMPTOMS: Altered mental status, unresponsive PROTOCOL: Multiplanar multisequence MR images of the brain were obtained without IV contrast COMPARISON: 10/04/2024 FINDINGS: Extra axial spaces: There is age-related cortical atrophy. Hemorrhage: None. Ventricular system: Within normal limits. Basal cisterns: Within normal limits and not effaced. Cerebral parenchyma: Scattered foci of diffusion restriction are noted in the MCA and MAINE watershed territories, within the frontal cortices anteriorly, and within the occipital lobes, left greater than right. T2 and FLAIR hyperintense foci are noted in the periventricular and subcortical white matter. There is cortically corresponding to areas of diffusion infection. Midline shift: None.. Cerebellum: Scattered foci of diffusion restriction are noted in the cerebellar hemispheres and within the john. Brainstem: Within normal limits. OTHER: Calvarium: Normal marrow signal. Vascular system: Satisfactory flow voids within the anterior and posterior circulation. Visualized Paranasal sinuses: Within normal limits. Visualized Orbits: Within normal limits. Visualized upper cervical spine: Within normal limits. Sella and skull base: Within normal limits. MR/MR head/brain wo con IMPRESSION: Multiple punctate foci of cortical, subcortical, and periventricular white matter diffusion restriction also affecting the bilateral cerebellar hemisphere suggesting acute to subacute ischemia secondary to a central embolic source. Additional chronic age-related neurodegenerative changes are present as above. Impression dictated by: Josep Jacinto M.D. 10/04/2024 11:46 AM Dictation Location: [place] [address] Electronically authenticated by: [id number] Y Date: 10/04/2024 11:46
--- NOTE | 2024-10-04 10:28 | MR_ITS ---
[address] [address] Patient Name: VERNA NEELY MRN: [id number] date: 1960 Sex: M Assigned Patient Location: MS Current Patient Location: [place] Accession/Order Number: [id number] Exam Date: 10/04/2024 11:52 Report Date: 10/04/2024 11:53 At the request of: MARCO ANTONIO HUNTLEY MD Procedure: MR angio neck wo con MR angio neck wo con 10/04/2024 11:15 AM SIGN OF SYMPTOMS: Altered mental status, unresponsive PROTOCOL: Axial 3-D qdtp-yn-nutjbi MRA with 3-D reconstructions COMPARISON: 10/04/2024 FINDINGS: The superior cerebellar arteries, posterior inferior cerebellar arteries, and the basilar artery are within normal limits. The posterior cerebral arteries are unremarkable. The intracranial segments of the internal carotid arteries are within normal limits. There are normal anterior and middle cerebral arteries. Anterior communicating artery is patent. Posterior communicating arteries are hypoplastic which is a normal variant. The deep venous system and dural venous systems appear to be patent. MR/MR angio neck wo con IMPRESSION: No focal stenosis, occlusion, or aneurysmal dilatation. Impression dictated by: Josep Jacinto M.D. 10/04/2024 11:53 AM Dictation Location: [place] [address] Electronically authenticated by: [id number] Y Date: 10/04/2024 11:53
--- NOTE | 2024-10-04 13:08 | SWNOTE1 ---
JEFF called Dasha at [facility] rehab and she did receive updates and sent them on to insurance.
[2024-10-04] MEDS: TOPIRAMATE 25 MG TABLET 50 MG PO ×2 (14:58→22:38)
[2024-10-04] MEDS: TOPIRAMATE 100 MG TABLET 200 MG PO ×2 (14:58→22:39)
[2024-10-04] MEDS: IPRATROPIUM/ALBUTEROL SULFATE 3 ML AMPUL.NEB IH (16:19)
[2024-10-04] MEDS: AMITRIPTYLINE HCL 50 MG TABLET 100 MG PO (22:40)
[2024-10-04] MEDS: PREGABALIN 100 MG CAPSULE PO (22:40)
[2024-10-05] VITALS (12 sets, daily range): BP systolic 131–152; BP diastolic 58–97; PULSE 50–63; TEMP 36.4–36.8; O2SAT 95–98; BMI 28.5
[2024-10-05] MEDS: LACTATED RINGER'S SOLUTION 1,000 ML 100 ML IV ×2 (00:18→10:35)
[2024-10-05] MEDS: HYDROCORTISONE SODIUM SUCC PF 100 MG/2 ML VIAL IVP ×2 (00:19→10:02)
[2024-10-05] MEDS: ERTAPENEM SODIUM 1 GM in 0.9 % SODIUM CHLORIDE 50 ML IV (01:22)
[2024-10-05 05:56] LABS: Eosinophils Percent Auto 0.1 % (0.9-7.0); Hematocrit 35.1 % (42.0-54.0); Hemoglobin 11.6 g/dL (14.0-18.0); Immature Granulocytes Abs Auto 0.04 10^3/uL (0.00-0.03); Immature Granulocytes Pct Auto 0.6 % (0.0-0.5); Lymphocytes Absolute Auto 0.9 10^3/uL (1.2-3.8); Lymphocytes Percent Auto 13.3 % (20.5-60.0); Mean Corpuscular Volume 87.8 fL (80.0-94.0); Mean Platelet Volume 9.7 fL (9.5-13.5); Monocytes Absolute Auto 0.5 10^3/uL (0.3-0.8); Monocytes Percent Auto 6.9 % (1.7-12.0); Neutrophils Absolute Auto 5.5 10^3/uL (1.4-6.5); Neutrophils Percent Auto 79.1 % (43.0-75.0); Platelet Count 288 10^3/uL (150-450); Red Cell Distribution Width 15.3 % (11.0-15.0)
[2024-10-05] MEDS: TOPIRAMATE 25 MG TABLET 50 MG PO (06:04)
[2024-10-05] MEDS: MAGNESIUM OXIDE 400 MG TABLET PO (06:04)
[2024-10-05] MEDS: TOPIRAMATE 100 MG TABLET PO (06:05)
[2024-10-05 06:10] LABS: INR 1.19; Prothrombin Time 12.4 sec (9.0-11.6)
[2024-10-05 06:12] LABS: Alanine Aminotransferase 17 U/L (16-63); Albumin Globulin Ratio 0.9; Albumin Level 2.5 g/dL (3.4-5.0); Alkaline Phosphatase 75 U/L (46-116); Anion Gap 13.1; Aspartate Amino Transferase 9 U/L (15-37); Bilirubin Total 0.2 mg/dL (0.2-1.0); Calcium 8.3 mg/dL (8.5-10.1); Carbon Dioxide 22.1 mmol/L (21.0-32.0); Chloride 112 mmol/L (98-107); Estimated GFR (African America >60 (>=60 mL/min/1.73m^2); Estimated GFR (Non-African Ame >60 (>=60 mL/min/1.73m^2); Globulin 2.9 g/dL; Glucose 155 mg/dL (74-106); Potassium 4.2 mmol/L (3.5-5.1); Sodium 143 mmol/L (136-145); Total Protein 5.4 g/dL (6.4-8.2)
[2024-10-05 06:13] LABS: Magnesium 1.8 mg/dL (1.8-2.4)
--- NOTE | 2024-10-05 06:51 | P.PN_ITS ---
Progress Note: Subjective Subjective Interval history: Patient much more awake this morning, no specific complaints, some shortness of breath but he states that is his baseline, no increase in his shortness of breath at least, no headache Exam Constitutional Vital Signs, click to edit/add: Last Vital Signs Temp 97.6 F 10/05/24 04:00 Pulse 50 L 10/05/24 06:00 Resp 20 10/05/24 04:00 BP 145/97 H 10/05/24 04:00 Pulse Ox 97 10/05/24 06:00 O2 Del Method Room Air 10/05/24 04:00 O2 Flow Rate 2 10/05/24 04:00 Documenting provider has reviewed patient's vital signs: yes Common normals: no apparent distress Respiratory Common normals: normal respiratory effort, no retractions and clear to auscultation bilaterally Effort & inspection: non tachypneic Cardio Common normals: regular rate, regular rhythm and no murmurs Extremity Common normals: normal to inspection, full ROM and no clubbing, cyanosis or edema Neuro Other: Movement of upper and lower extremities but right side weaker than left side persisting Progress Note: Objective Labs Labs: Short CBC 10/05/24 Range/Units 05:33 WBC 7.0 (4.0-11.0) 10^3/uL Hgb 11.6 L (14.0-18.0) g/dL Hct 35.1 L (42.0-54.0) % Plt Count 288 (150-450) 10^3/uL BMP 10/05/24 05:33 Sodium 143 Potassium 4.2 Chloride 112 H Carbon Dioxide 22.1 BUN 34.0 H Creatinine 1.00 Glucose 155 H Calcium 8.3 L Liver Function 10/05/24 Range/Units 05:33 Total Bilirubin 0.2 (0.2-1.0) mg/dL AST 9 L (15-37) U/L ALT 17 (16-63) U/L Alkaline Phosphatase 75 (46-116) U/L Albumin 2.5 L (3.4-5.0) g/dL Progress Note: A&P Assessment and Plan (1) Weakness: (2) Left lower lobe pneumonia: (3) Acute hypokalemia: (4) Septic shock: (5) Acute kidney injury: (6) Bacterial pneumonia: (7) HTN (hypertension): Qualifiers: Hypertension type: primary hypertension Qualified Code(s): I10 - Essential (primary) hypertension (8) HLD (hyperlipidemia): Qualifiers: Hyperlipidemia type: unspecified Qualified Code(s): E78.5 - Hyperlipidemia, unspecified (9) Asthma: Qualifiers: Asthma complication type: with acute exacerbation Asthma persistence: persistent Asthma severity: severe Qualified Code(s): J45.51 - Severe persistent asthma with (acute) exacerbation (10) Depression: (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 Admission findings: Sinus tachycardia, respiratory distress, severe hypotension blood pressure 77/68 with a MAP of 62 in the emergency room, acute hypoxia with O2 sat of 88% on room air, secondary to right upper lobe and left lower lobe pneumonia with acute UTI findings, significant leukocytosis with lactic acidosis resulting in acute kidney injury and severe sepsis Severe sepsis complicated by his immune deficiency from Anti-pneumococcal polysaccharide antibody deficiency-urine culture did not grow anything, still working diagnosis of pneumonia, overall improving, maintain current antibiotics white blood cell count normal but with still left shift consistent with a bacterial process Acute right-sided weakness due to multifocal CVA acute and subacute-discussed with telestroke team this morning, MRI findings with acute and subacute strokes consistent with watershed area related to the severe sepsis as outlined above and hypotension, no further workup assuming echocardiogram is unremarkable Acute NSTEMI type II-echocardiogram pending-no chest pain, repeat troponin Acute kidney injury stage II-baseline creatinine 0.96 when well, creatinine on admission of 2.06, this would be 214.6% above baseline with decreased urine output in the last 6 hours resulting in stage II acute kidney injury-back to baseline Polycythemia-resolved, hemoglobin down slightly today continue to monitor Hemoccult pending Lcsnlvaywjz-gbxmvndyxd-axprzz Coagulopathy secondary to severe sepsis-INRs are improving, daily Hypomagnesemia-supplement, increase supplementation Insomnia-continue with home medications History of hypertension-blood pressure back up somewhat today, will adjust medications, need to watch for potential hypotension to complicate the above acute stroke secondary to sepsis Hypercholesterolemia can hold for now medications Asthma-continue with home medications Migraine-currently no headache and will monitor GERD-IV Protonix Recurrent UTIs-maintain home preventive medications, checking on urine culture Neuropathy-continue with home medications Depression-continue with home medications Admission status: Patient presented emergency room with altered mental status and severe weakness found to have significant hypotension lactic acidosis consistent with severe sepsis likely related to pulmonary infection complicated by his immune deficiency, medically necessary treatment will span 2 midnights. Inpatient status in the stepdown unit, patient will be require extensive rehabilitation, excellent rehabilitation candidate ? Urinary Catheter Management Urinary Catheter Management Urethral: Cath placed during this visit: yes, but has since been removed by the nurse Insertion date: 10/05/24 Insertion time: 06:34 Removal date: 10/03/24 Removal time: 02:15
[2024-10-05] MEDS: PROSTAT 15 GM PROTEIN/100 CAL 30 ML LIQUID PACKET PO (08:19)
[2024-10-05] MEDS: POTASSIUM CHLORIDE 10 MEQ ER TABLET 20 MEQ PO (08:19)
[2024-10-05] MEDS: ENOXAPARIN SODIUM 80 MG/0.8 ML SYRINGE SUBQ (08:19)
[2024-10-05] MEDS: VENLAFAXINE HCL ER 150 MG CAPSULE 300 MG PO (08:20)
[2024-10-05] MEDS: PANTOPRAZOLE SODIUM 40 MG VIAL IV (08:20)
[2024-10-05] MEDS: LOSARTAN POTASSIUM 50 MG TABLET 100 MG PO (08:20)
[2024-10-05] MEDS: CARVEDILOL 25 MG TABLET PO (08:20)
[2024-10-05] MEDS: CELECOXIB 100 MG CAPSULE 400 MG PO (08:20)
[2024-10-05] MEDS: ENSURE HP 237 ML LIQUID PO (08:20)
[2024-10-05] MEDS: ASPIRIN 81 MG TABLET.DR 162 MG PO (08:20)
--- NOTE | 2024-10-05 08:41 | CM.NOTE ---
Rounds made with Dr. Deshpande, awaiting teleneuro to see pt for further recommendations. Pt's plan is to discharge to [facility] for skilled therapy when medically stable.
--- NOTE | 2024-10-05 09:02 | CM.NOTE ---
Dr. Deshpande also aware of urine culture final result.
[2024-10-05] MEDS: LEVOFLOXACIN IN DEXTROSE 5 % 750 MG/150 ML PREMIX 100 MG IV (10:03)
--- NOTE | 2024-10-05 11:30 | CM.NOTE ---
2ndImportant Message From Medicare discussed with pt and son, no questions or concerns at this time.
--- NOTE | 2024-10-05 11:33 | PT.DAILY ---
Physical Therapy Daily Note PT Daily Note/Assess Start: 10/04/24 09:32 Freq: Status: Active Protocol: Document 10/05/24 11:32 DAVID (Rec: 10/05/24 11:33 DAVID [id number]) Visit Not Completed Visit Not Completed Visit Not Completed Other Due to: Other Reason Visit With another provider getting US. Not Completed Physical Therapy Daily Note/Assessment Time In/Time Out Time In 11:30 Time Out 11:30 Pain In Pain N/A Pain Out Pain N/A GG. Functional Abilities and Goals-Complete for Swing Bed Patients Only [id number]. Self-Care [id number]. Mobility
--- NOTE | 2024-10-05 11:48 | SWNOTE1 ---
Updates sent to Dasha at [facility]. Updates included progress note, vitals, labs, and nursing notes. JEFF to send PT/OT once documented. JEFF called Dasha and left her a voicemail. JEFF called again and no answer.
--- NOTE | 2024-10-05 12:46 | CM.NOTE ---
Cordell hopson sent to Dr. Deshpande that message received from [facility] that skilled was denied through pt's insurance and he would need to complete P-P by 9am tomorrow. Number to call for P-P [phone]
--- NOTE | 2024-10-05 13:00 | P.DS_ITS ---
DS: Providers Provider Date of admission: 10/02/24 07:01 Primary care physician: Raquel Rayo MD Consults: 10/02/24 Consult to Dietitian Routine Reason for consultation: weight loss of 20 pounds over 2 months Has provider been notified: No 10/02/24 06:39 Consult to Telestroke Routine Reason for consultation: diffuse weakness - truncal and all 4 extremities Has provider been notified: Yes 10/02/24 07:56 Consult to Pharmacy Routine Consulting Provider: Reason for consultation: Please [place] me when Med Rec is Updated Has provider been notified: No Occupational Therapy Eval and Treat Routine Reason for consultation: Only if needed for Rehab Has provider been notified: No Physical Therapy Eval and Treat Routine Reason for consultation: Eval and Treat Has provider been notified: No 10/03/24 07:00 Consult to Telestroke Routine Reason for consultation: follow up from ER - new R sided weakness Has provider been notified: No 10/04/24 07:47 Consult to Telestroke Routine Reason for consultation: Update after head ct Has provider been notified: No DS: Diagnosis Discharge Diagnosis (1) Weakness: (2) Left lower lobe pneumonia: (3) Acute hypokalemia: (4) Septic shock: (5) Acute kidney injury: (6) Bacterial pneumonia: (7) HTN (hypertension): Qualifiers: Hypertension type: primary hypertension Qualified Code(s): I10 - Essential (primary) hypertension (8) HLD (hyperlipidemia): Qualifiers: Hyperlipidemia type: unspecified Qualified Code(s): E78.5 - Hyperlipidemia, unspecified (9) Asthma: Qualifiers: Asthma severity: severe Asthma persistence: persistent Asthma complication type: with acute exacerbation Qualified Code(s): J45.51 - Severe persistent asthma with (acute) exacerbation (10) Depression: (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 Admission findings: Sinus tachycardia, respiratory distress, severe hypotension blood pressure 77/68 with a MAP of 62 in the emergency room, acute hypoxia with O2 sat of 88% on room air, secondary to right upper lobe and left lower lobe pneumonia with acute UTI findings, significant leukocytosis with lactic acidosis resulting in acute kidney injury and severe sepsis Severe sepsis complicated by his immune deficiency from Anti-pneumococcal po lysaccharide antibody deficiency-urine culture did not grow anything, still working diagnosis of pneumonia, overall improving, maintain current antibiotics white blood cell count normal but with still left shift consistent with a bacterial process Acute right-sided weakness due to multifocal CVA acute and subacute-discussed with telestroke team this morning, MRI findings with acute and subacute strokes consistent with watershed area related to the severe sepsis as outlined above and hypotension, no further workup assuming echocardiogram is unremarkable Acute NSTEMI type II-echocardiogram pending-no chest pain, repeat troponin Acute kidney injury stage II-baseline creatinine 0.96 when well, creatinine on admission of 2.06, this would be 214.6% above baseline with decreased urine output in the last 6 hours resulting in stage II acute kidney injury-back to baseline Polycythemia-resolved, hemoglobin down slightly today continue to monitor Hemoccult pending Eayhzkziatb-[id number] Coagulopathy secondary to severe sepsis-INRs are improving, daily Hypomagnesemia-supplement, increase supplementation L Insomnia-continue with home medications History of hypertension-blood pressure back up somewhat today, will adjust medications, need to watch for potential hypotension to complicate the above acute stroke secondary to sepsis Hypercholesterolemia can hold for now medications Asthma-continue with home medications Migraine-currently no headache and will monitor GERD-IV Protonix Recurrent UTIs-maintain home preventive medications, checking on urine culture Neuropathy-continue with home medications Depression-continue with home medications Admission status: Patient presented emergency room with altered mental status and severe weakness found to have significant hypotension lactic acidosis consistent with severe sepsis likely related to pulmonary infection complicated by his immune deficiency, medically necessary treatment will span 2 midnights. Inpatient status in the stepdown unit, patient will be require extensive rehabilitation, excellent rehabilitation candidate DS: Summary Hospital Course Hospital Course: Pt seen and eval in er with Admission findings: Sinus tachycardia, respiratory distress, severe hypotension blood pressure 77/68 with a MAP of 62 in the emergency room, acute hypoxia with O2 sat of 88% on room air, secondary to right upper lobe and left lower lobe pneumonia with acute UTI findings, significant leukocytosis with lactic acidosis resulting in acute kidney injury and severe sepsis complicated by his immune deficiency from Anti-pneumococcal polysaccharide antibody deficiency and acute NSTEMI II-urine culture did not grow anything, still working diagnosis of pneumonia. Pt tolerated fluid resuscutaion, had significant R sided weakness. Telestroke felt on basis of sepsis. MRI confirmed watershed strokes secondary to hypotension and hypoxemia. Yesterday was another episode fo unresponsiveness. Later in am that had resolved. Today much improved., Left side appears stronger than R but he is an excellent rehab candidate. BP up some but meds adjusted, need to ensure no hypotension. Medically stable for D/C to rehab. Medication see list, see pcp post rehab Time Spent with Patient Time attestation: Total time spent providing and/or coordinating discharge services: Exam Constitutional Vital Signs, click to edit/add: Last Vital Signs Temp 98.2 F 10/05/24 11:55 Pulse 63 10/05/24 11:55 Resp 18 10/05/24 11:55 BP 152/80 H 10/05/24 11:00 Pulse Ox 95 10/05/24 11:55 O2 Del Method Room Air 10/05/24 11:55 O2 Flow Rate 2 10/05/24 11:00 Documenting provider has reviewed patient's vital signs: yes Common normals: no apparent distress Respiratory Common normals: normal respiratory effort, no retractions and clear to auscultation bilaterally Effort & inspection: non tachypneic Cardio Common normals: regular rate, regular rhythm and no murmurs Extremity Common normals: normal to inspection, full ROM and no clubbing, cyanosis or edema Neuro Other: Movement of upper and lower extremities but right side weaker than left side persisting DS: Data Data Completed and Pending Labs on day of discharge: Labs from last 24 hours 10/05/24 05:33 WBC 7.0 RBC 4.00 L Hgb 11.6 L Hct 35.1 L MCV 87.8 MCH 29.0 MCHC 33.0 RDW 15.3 H Plt Count 288 MPV 9.7 Neut % (Auto) 79.1 H Lymph % (Auto) 13.3 L Bremer % (Auto) 6.9 Eos % (Auto) 0.1 L Baso % (Auto) 0.0 L Neut # (Auto) 5.5 Lymph # (Auto) 0.9 L Bremer # (Auto) 0.5 Eos # (Auto) 0.0 Baso # (Auto) 0.0 Abs Immat Gran (auto) 0.04 H Imm/Tot Granulo (auto) 0.6 H PT 12.4 H INR 1.19 Sodium 143 Potassium 4.2 Chloride 112 H Carbon Dioxide 22.1 Anion Gap 13.1 BUN 34.0 H Creatinine 1.00 Est GFR ( Amer) >60 Est GFR (Non-Af Amer) >60 BUN/Creatinine Ratio 34.0 Glucose 155 H Calcium 8.3 L Magnesium 1.8 Total Bilirubin 0.2 AST 9 L ALT 17 Alkaline Phosphatase 75 Troponin I High Sens 65.0 Total Protein 5.4 L Albumin 2.5 L Globulin 2.9 Albumin/Globulin Ratio 0.9 Preliminary micro results at discharge 10/02/24 01:36 Blood Culture Result 2 - Preliminary Blood - Left Hand NO GROWTH AT 36-48 HOURS. FINAL TO FOLLOW. 10/02/24 00:54 Blood Culture Result 1 - Preliminary Blood - Right Antecubital NO GROWTH AT 36-48 HOURS. FINAL TO FOLLOW. Discharge Plan Discharge Disposition: Xfer Inpatient Rehab Fac Condition: Serious Discharge Medications: New carvedilol 25 mg Tablet 25 mg PO BID Qty: 60 11RF aspirin 81 mg Tablet,Delayed Release (Dr/Ec) 162 mg PO QD Qty: 60 11RF magnesium oxide 400 mg (241.3 mg magnesium) Tablet 400 mg PO TID Qty: 90 0RF cefdinir 300 mg capsule 600 mg PO DAILY Qty: 14 0RF prednisone 10 mg tablet 50 mg PO DAILY Qty: 32 0RF Rx Instructions: 4/day for 3 days, 3/day for 3 days, 2/day for 3 days, 1/day for 3 days, 1/2 / day for 4 days Continued cyanocobalamin (vitamin B-12) 1,000 mcg capsule 1,000 mcg PO DAILY fluticasone propionate 50 mcg/actuation spray,suspension 2 spray intranasal DAILY PRN (Reason: nasal congestion) Rx Instructions: administer into each nostril potassium chloride [Klor-Con M20] 20 mEq tablet,ER particles/crystals 20 meq PO BID topiramate 50 mg tablet 50 mg PO TID Emgality Pen 120 mg/mL pen injector 120 mg SUBCUT DAILY losartan 100 mg tablet 100 mg PO DAILY oxycodone-acetaminophen 5-325 mg tablet 0.5 tab PO Q12H PRN (Reason: pain) pregabalin 100 mg capsule 100 mg PO Q12H topiramate 200 mg tablet 200 mg PO Q12H budesonide 0.5 mg/2 mL suspension for nebulization 0.5 mg inhalation Q12H meclizine 12.5 mg tablet 12.5 mg PO DAILY PRN (Reason: dizziness) sumatriptan succinate 100 mg tablet 100 mg PO Q2H PRN (Reason: migraine headache) Rx Instructions: MAX 2 IN 24 HOURS sumatriptan succinate 6 mg/0.5 mL pen injector 6 mg SUBCUT Q2H PRN (Reason: migraine headache) Rx Instructions: MAX 12 MG / 24 HOURS amitriptyline 100 mg tablet 100 mg PO .QHS atorvastatin 40 mg tablet 40 mg PO .QHS Breztri Aerosphere 160-9-4.8 mcg/actuation HFA aerosol inhaler 2 inh INHALATION DAILY celecoxib 200 mg capsule 400 mg PO Q12H folic acid 1 mg tablet 1 mg PO DAILY methenamine hippurate 1 gram tablet 1 g PO BID omeprazole 40 mg capsule,delayed release(DR/EC) 40 mg PO BID topiramate 100 mg tablet 100 mg PO DAILY venlafaxine 150 mg capsule,extended release 24hr 300 mg PO DAILY Discontinued amlodipine 5 mg tablet 5 mg PO DAILY clonidine HCl 0.1 mg tablet 0.1 mg PO BID losartan 25 mg tablet 25 mg PO DAILY spironolactone 50 mg tablet 50 mg PO DAILY verapamil 120 mg tablet 120 mg PO .[facility] Print Language: Fijian Forms: Portal Instructions
--- NOTE | 2024-10-05 13:13 | CM.NOTE ---
Spoke with pt's son regarding D/C to skilled facility. Son is in agreement to transport pt, son would need slip for work to say he was at hospital with father. Slip written for pt's son. Attempted to call Amairani back at [facility] for D/C time, no answer or voicemail Case Management will try back.
--- NOTE | 2024-10-05 13:21 | CM.NOTE ---
Attempted to call Dasha at [facility] rehab, no answer. Left message with update of pt's discharge and time of transport.
--- NOTE | 2024-10-05 13:25 | CM.NOTE ---
[phone]
--- NOTE | 2024-10-05 13:31 | SWNOTE1 ---
See case management note. Pt is discharging to [facility] acute rehab.
--- NOTE | 2024-10-05 13:36 | PT.DAILY ---
Physical Therapy Daily Note PT Daily Note/Assess Start: 10/04/24 09:32 Freq: Status: Active Protocol: Document 10/05/24 13:27 DAVID (Rec: 10/05/24 13:36 DAVID [id number]) Physical Therapy Daily Note/Assessment Time In/Time Out Time In 13:10 Time Out 13:23 Pain In Pain N/A Pain Out Pain N/A Subjective Subjective Supine upon arrival. Lethargic but agrees to attempt to sit EOB. Declines wanting to get into chair. Therapeutic Activity Time Therapeutic Activity 10 Minutes (minutes) Therapeutic Activity 1 Units Therapeutic Activity Treatment Bed Mobility Ability Maximum Assist Therapeutic Activity Supine>sit MaxA to advance LEs and trunk to sitting EOB Comments . Unable to is unsupported due to heavy posterior lean. ModA to maintain upright seated balance on EOB. Sits EOB supported for 5 min. Unable to perform any seated ex asked of him. returned to supine position MaxA. Total assist of 2 to scoot pt up in bed. Left in supine position with call light within reach and needs met, Total Physical Therapy Time Total Therapy 10 Minutes Total Physical 1 Therapy Units Summary Daily Note Summary Poor static sitting balance due to heavy posterior lean .
--- NOTE | 2024-10-05 13:38 | CM.NOTE ---
RN provided with phone number to call report and also provided number for son to contact RN upon arrival and address of facility.
--- NOTE | 2024-10-05 15:35 | PC.NURSE ---
Report called to rehab. Monserrat
--- NOTE | 2024-10-05 15:58 | CA_ITS ---
Patient Name: VERNA NEELY MR#: [id number] : 1960 Exam Date: 10/05/2024 Ordering Doctor: DR MARCO ANTONIO HUNTLEY . ECHOCARDIOGRAM REPORT PROCEDURE: CA ECHO DOPPLER COMPLETE INDICATIONS: Multi-infarct cva, hypertension COMPARISON: None. DESCRIPTION: COMPLETE ECHOCARDIOGRAM Real-time transthoracic echocardiography with 2D, M-mode, spectral and color flow Doppler performed. QUALITY: Technical quality was good. LEFT VENTRICLE: Normal chamber size. Mild concentric left ventricular hypertrophy. Systolic function is mildly reduced. There is global hypokinesis. LV EF: Calculated left ventricular ejection fraction is 48%. Mildly reduced left ventricular ejection fraction, (45-50%). DIASTOLIC: ATRIAL SEPTUM: LEFT ATRIUM: Normal chamber size. RIGHT ATRIUM: Normal chamber size. RIGHT VENTRICLE: Normal chamber size. Systolic function appears normal. TRICUSPID VALVE: Normal mobility and thickness. No stenosis with mild regurgitation. No evidence of pulmonary hypertension. RVSP 28 mmHg MITRAL VALVE: Normal mobility and thickness. No evidence of mitral valve stenosis. There is no mitral annular calcification. Mild mitral regurgitation. AORTIC VALVE: Normal trileaflet appearance. No visible sclerosis. Normal leaflet mobility. No evidence of aortic valve stenosis. Mild aortic regurgitation. AORTIC ROOT: Normal diameter and appearance, measuring 3.6 cm. Ascending aorta is normal in size, measuring 3.3 cm. PULMONIC VALVE: Normal thickness and mobility. No stenosis. Trivial regurgitation. PERICARDIUM: No evidence of pericardial effusion. IVC: Not well visualized. PLEURA: CONCLUSION: 1. Mild concentric left ventricular hypertrophy with mildly reduced systolic function. LVEF is 45-50%. 2. Normal right ventricular size with normal systolic function. 3. Mild mitral, tricuspid and aortic regurgitation. 4. Normal right sided pressures. Adult Echocardiography Procedure Report Left Ventricle LVEDD (3.7 - 5.6 cm): 4.62 cm LVESD (2.2 - 4.0 cm): 4.01 cm LVIVS thickness (0.6 - 1.2 cm): 1.15 cm LVPW thickness (0.5 - 1.0 cm): 1.34 cm e': 0.09 m/s E - e': 5.75 LVOT Max Gradient: 3.61 mm[Hg] LVOT Area (cm2): 0.95 m/s Peak Velocity (LVOT): 0.95 m/s Mean Velocity (LVOT): 0.66 m/s LVOT Diameter 2.29 cm Left Atrium LA Volume Index (2D A2C): 32.81 ml/m2 Left Atrium Systolic Dimension: 4.50 cm Mitral Valve MV E to A Ratio: 0.88 Mitral Valve A-Wave Peak Velocity: 0.57 m/s Mitral Valve E-Wave Peak Velocity: 0.50 m/s Right Ventricle Aorta AO Root Diam: 3.65 cm Ascending Ao Diam: 3.29 cm Aortic Valve AoV Area (Peak Evens): 3.53 cm2, 3.53 cm2 AoV Area (VTI): 3.49 cm2, 3.49 cm2 Deceleration Summers: 1.36 m/s2 Pressure Half-Time: 855.75 ms Peak Velocity(Antegrade Flow): 1.11 m/s Peak Gradient(Antegrade Flow): 4.96 mm[Hg] Mean Velocity(Antegrade Flow): 0.79 m/s Mean Gradient(Antegrade Flow): 2.86 mm[Hg] Velocity Time Integral: 24.35 cm Tricuspid Valve Peak Velocity (Regurgitant Flow): 2.03 m/s, 2.51 m/s Pulmonic Valve Peak Gradient: 2.09 mm[Hg], 2.61 mm[Hg] Right Atrium Right Atrium Systolic Pressure: 38.82 ml, 38.82 ml Dictated by: Elia Murray M.D. on 10/05/2024 at 18:27 Approved by: Elia Murray M.D. on 10/05/2024 at 18:34
== END 2024-10-05 15:37 | DRG 871 ==
LOC: ER 05:40 → MS 07:04
PROVIDERS: Admitting Provider Family Medicine; Emergency Provider Emergency Medicine; PCP Family Medicine; Visit Provider Family Medicine
DX: A41.9 Sepsis, unspecified organism (principal); G93.41 Metabolic encephalopathy; I21.A1 Myocardial infarction type 2; R65.21 Severe sepsis with septic shock; J15.9 Unspecified bacterial pneumonia; I63.9 Cerebral infarction, unspecified; N17.9 Acute kidney failure, unspecified; D80.6 Antibody deficiency with near-normal immunoglobulins or with hyperimmunoglobulinemia; I69.354 Hemiplegia and hemiparesis following cerebral infarction affecting left non-dominant side; J45.51 Severe persistent asthma with (acute) exacerbation; D68.9 Coagulation defect, unspecified; J84.9 Interstitial pulmonary disease, unspecified; E87.6 Hypokalemia; E86.9 Volume depletion, unspecified; R53.1 Weakness; K52.9 Noninfective gastroenteritis and colitis, unspecified; Z79.899 Other long term (current) drug therapy; I10 Essential (primary) hypertension; F32.A Depression, unspecified; Z96.649 Presence of unspecified artificial hip joint; D75.1 Secondary polycythemia; E83.42 Hypomagnesemia; E78.00 Pure hypercholesterolemia, unspecified; G47.00 Insomnia, unspecified; K21.9 Gastro-esophageal reflux disease without esophagitis; Z87.440 Personal history of urinary (tract) infections; G62.9 Polyneuropathy, unspecified; R09.02 Hypoxemia; R29.708 NIHSS score 8
CPT/HCPCS: 36415; 36600; 51702; 51798; 70450; 70544; 70547; 70551; 71045; 72125; 74176; 80048; 80053; 80076; 81001; 82140; 82800; 82805; 83605; 83735; 83880; 84484; 85025; 85610; 85730; 87040; 87070; 87086; 87205; 87420; 87804; 87811; 93005; 93306; 94640; 94667; 94668; 94761; 95816; 96365; 96366; 96368; 96375; 97161; 97165; 97530; 97535; 99285; G0328; J1335; J1650; J1720; J2919

== ENCOUNTER 2024-10-28 14:21 | Emergency (ER) | payer MEDICARE, SELFPAY ==
[2024-10-28] VITALS (26 sets, daily range): BP systolic 132–169; BP diastolic 89–113; PULSE 100–130; TEMP 36.5; O2SAT 89–100; BMI 25.1
--- NOTE | 2024-10-28 14:55 | ECG_ITS ---
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 Measurements Intervals [place] Rate: 121 P: 58 OK: 142 QRS: -14 QRSD: 86 T: 13 QT: 334 QTc: 406 Interpretive Statements 1120 Sinus tachycardia 1470 with occasional supraventricular premature complexes [address] depression [address] & Twave abnormality 5233 Voltage criteria for LVH 9150 abnormal ECG Compared to ECG 10/02/2024 00:28:26 ST (T wave) deviation now present Poor R-wave progression no longer present Early repolarization no longer present Electronically Signed On 10-29-2024 12:04:13 EDT by FRANKO ROSADO M.D.
--- NOTE | 2024-10-28 14:56 | ED.GENADUL1 ---
HPI HPI - General Adult General Chief complaint: Weakness Stated complaint: DIZZINESS Time Seen by Provider: 10/28/24 14:48 Source: patient Mode of arrival: Wheelchair Limitations: no limitations History of Present Illness HPI narrative: 64-year-old male presents for generalized weakness and nausea and some shortness of breath. He states it is the heat. He states his house is air-conditioned and he has not been outside much but he had to go to the grocery store yesterday to get some ice and that he got to him. No fever or vomiting or diarrhea. He has not complained to me of chest pain. Related Data Home Medications ?Medication ?Instructions ?Recorded ?Confirmed amitriptyline 100 mg tablet 100 mg PO .QHS 10/15/23 10/28/24 atorvastatin 40 mg tablet 40 mg PO .QHS 10/15/23 10/28/24 budesonide 160 mcg-glycopyr 9 2 inh inhalation DAILY 10/15/23 10/28/24 mcg-formot 4.8 mcg/actuation HFA inhaler (Breztri Aerosphere) celecoxib 200 mg capsule 400 mg PO Q12H 10/15/23 10/28/24 folic acid 1 mg tablet 1 mg PO DAILY 10/15/23 10/28/24 methenamine hippurate 1 gram tablet 1 g PO BID 10/15/23 10/28/24 omeprazole 40 mg capsule,delayed 40 mg PO BID 10/15/23 10/28/24 release topiramate 100 mg tablet 100 mg PO DAILY 10/15/23 10/28/24 venlafaxine 150 mg 150 mg PO DAILY 10/15/23 10/28/24 capsule,extended release 24 hr fluticasone propionate 50 2 spray intranasal DAILY PRN nasal 10/30/23 10/28/24 mcg/actuation nasal congestion spray,suspension potassium chloride 20 mEq 20 meq PO BID 10/30/23 10/28/24 tablet,extended release(part/cryst) (Klor-Con M) topiramate 50 mg tablet 50 mg PO QAM 10/30/23 10/28/24 galcanezumab-gnlm 120 mg/mL 120 mg subcut .q21 days 09/05/24 10/28/24 subcutaneous pen injector (Emgality Pen) losartan 100 mg tablet 100 mg PO DAILY 09/05/24 10/28/24 oxycodone-acetaminophen 5 mg-325 0.5 tab PO Q12H PRN pain 09/05/24 10/28/24 mg tablet pregabalin 100 mg capsule 100 mg PO Q12H 09/05/24 10/28/24 topiramate 200 mg tablet 200 mg PO .COMPLEX 09/05/24 10/28/24 budesonide 0.5 mg/2 mL suspension 0.5 mg inhalation Q12H PRN 10/02/24 10/28/24 for nebulization shortness of breath or wheezing meclizine 12.5 mg tablet 12.5 mg PO DAILY PRN dizziness 10/02/24 10/28/24 sumatriptan succinate 100 mg tablet 100 mg PO Q2H PRN migraine headache 10/02/24 10/28/24 sumatriptan succinate 6 mg/0.5 mL 6 mg subcut Q2H PRN migraine 10/02/24 10/28/24 subcutaneous pen injector headache onabotulinumtoxinA 200 unit 240 unit subcut .q90 days 10/28/24 10/28/24 solution for injection (Botox) tezepelumab-ekko 210 mg/1.91 mL 210 mg subcut .q28 days 10/28/24 10/28/24 (110 mg/mL) subcutaneous pen injector (Tezspire) Allergies Allergy/AdvReac Type Severity Reaction Status Date / Time baclofen Allergy Severe Unknown Verified 10/02/24 00:37 ciprofloxacin (From Cipro) Allergy Severe Unknown Verified 10/02/24 00:37 indomethacin (From Indocin) Allergy Severe Unknown Verified 10/02/24 00:37 Penicillins Allergy Severe Unknown Verified 10/02/24 00:37 Sulfa (Sulfonamide Allergy Severe Unknown Verified 10/02/24 00:37 Antibiotics) propranolol Allergy Unknown Verified 10/02/24 00:37 Opioid HPI Opioid Management Most Recent Opioid Data: Last Pain Scale 3 10/05/24, 10:00 Last ORT Total Score 2 10/02/24, 07:44 Last ORT Risk Category Low Risk 10/02/24, 07:44 Review of Systems ROS Narrative A ten point review of systems is negative except as noted above. 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 (ICD-10) Sepsis ?A41.9 - Sepsis, unspecified organism (ICD-10) Bacterial pneumonia ?J15.9 - Unspecified bacterial pneumonia (ICD-10) HLD (hyperlipidemia) ?E78.5 - Hyperlipidemia, unspecified (ICD-10) HTN (hypertension) ?I10 - Essential (primary) hypertension (ICD-10) Chronic respiratory failure with hypoxia ?J96.11 - Chronic respiratory failure with hypoxia (ICD-10) Vertigo ?R42 - Dizziness and giddiness (ICD-10) Concussion with loss of consciousness ?S06.0X9A - Concussion with loss of consciousness of unspecified duration, initial encounter (ICD-10) Stroke ?I63.9 - Cerebral infarction, unspecified (ICD-10) Depression ?F32.A - Depression, unspecified (ICD-10) Chronic migraine 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 (ICD-10) Asthma ?J45.909 - Unspecified asthma, uncomplicated (ICD-10) ILD (interstitial lung disease) ?J84.9 - Interstitial pulmonary disease, unspecified (ICD-10) Surgical History H/O laminectomy ?Z98.890 - Other specified postprocedural states (ICD-10) History of hip replacement, total ?Z96.649 - Presence of unspecified artificial hip joint (ICD-10) H/O: knee surgery ?Z98.890 - Other specified postprocedural states (ICD-10) Family History Father Family history of CHF (congestive heart failure) Family history of cancer Family history of myocardial infarction Mother Family history of COPD (chronic obstructive pulmonary disease) Family history of cancer Family history of hypertension Family history of myocardial infarction Family history of stroke Brother Family history of cancer Uncle Family history of cancer Aunt Family history of diabetes mellitus Social History (Updated 10/02/24 @ 08:06 by Ly Taveras RN) Within the past year, how often did you have a drink containing alcohol: never Score interpretation: A score less than 4 is consistent with normal alcohol consumption. Smoking status: Never smoker Non-prescribed substance use: denies use Previous occupational history: retired Highest level of school completed/degree received: Doctoral degree Are you now , , , , never or living with a partner: In a typical week, how many times do you talk on the telephone with family, friends, or neighbors: twice per week How often do you get together with friends or relatives: once per week How often do you attend advent or catholic services: 4 or more times per year Do you belong to any clubs or organizations such as advent groups unions, fraternal or athletic groups, or school groups: yes Total score: 3 Score interpretation: A score of greater than or equal to 2 indicates the lowest level of social isolation. Little interest or pleasure in doing things: not at all Feeling down, depressed, or hopeless: not at all Feel stressed/tense/nervous/anxious/difficulty sleeping: to some extent Exam Narrative Exam Narrative: Nurses note and vital signs reviewed and patient is not hypoxic. General: The patient appears in no acute respiratory distress Skin: Warm, dry, no pallor noted. There is no rash noted. Head: Normocephalic, atraumatic Eye: Normal conjunctiva, no drainage Ears, Nose, Mouth, and Throat: oral mucosa is moist. Nares patent. Cardiovascular: Regular Rate and Rhythm Respiratory: Breath sounds are equal with good air movement. No rales or rhonchi did talk Back: non-tender GI: Soft and nontender Musculoskeletal: The patient has no evidence of calf tenderness, no pitting edema, symmetrical pulses noted bilaterally Neurological: A&O, normal speech Psychiatric: Cooperative Constitutional Vital Signs, click to edit/add: Last Vital Signs Temp 97.7 F 10/28/24 14:33 Pulse 123 H 10/28/24 14:33 Resp 18 10/28/24 14:33 BP 155/106 H 10/28/24 14:33 Pulse Ox 93 L 10/28/24 14:33 O2 Del Method Room Air 10/28/24 14:33 Course Vital Signs Vital signs: Vital Signs Temperature 97.7 F 10/28/24 14:33 Pulse Rate 123 H 10/28/24 14:33 Respiratory Rate 18 10/28/24 14:33 Blood Pressure 155/106 H 10/28/24 14:33 Pulse Oximetry 93 L 10/28/24 14:33 Oxygen Delivery Method Room Air 10/28/24 14:33 Temperature 97.7 F 10/28/24 14:33 Pulse Rate 123 H 10/28/24 14:33 Respiratory Rate 18 10/28/24 14:33 Blood Pressure 155/106 H 10/28/24 14:33 Pulse Oximetry 93 L 10/28/24 14:33 Oxygen Delivery Method Room Air 10/28/24 14:33 Medical Decision Making MDM Narrative Medical decision making narrative: His workup is negative. No evidence of pneumonia. He was tachycardic upon arrival but after IV fluids his heart rate has come down significantly. Blood work is nonspecific with a WBC of 7.5 and a hemoglobin of 16.8. BUN and creatinine are 12 and 1.2. He is able to be discharged home. Treatment diagnosis and follow-up were discussed with the patient. Differential Diagnosis Differential Diagnosis: Dehydration, acute kidney injury, anemia, pneumonia Lab Data Labs: Lab Results 10/28/24 Range/Units 15:36 WBC 7.5 (4.0-11.0) 10^3/uL RBC 5.82 (4.70-6.10) 10^6/uL Hgb 16.8 (14.0-18.0) g/dL Hct 49.2 (42.0-54.0) % MCV 84.5 (80.0-94.0) fL MCH 28.9 (25.9-34.0) pg MCHC 34.1 (29.9-35.2) g/dL RDW 14.7 (11.0-15.0) % Plt Count 270 (150-450) 10^3/uL MPV 9.7 (9.5-13.5) fL Neut % (Auto) 59.7 (43.0-75.0) % Lymph % (Auto) 25.8 (20.5-60.0) % [place] % (Auto) 12.9 H (1.7-12.0) % Eos % (Auto) 0.5 L (0.9-7.0) % Baso % (Auto) 0.8 (0.2-2.0) % Neut # (Auto) 4.5 (1.4-6.5) 10^3/uL Lymph # (Auto) 1.9 (1.2-3.8) 10^3/uL [place] # (Auto) 1.0 H (0.3-0.8) 10^3/uL Eos # (Auto) 0.0 (0.0-0.7) 10^3/uL Baso # (Auto) 0.1 (0.0-0.1) 10^3/uL Abs Immat Gran (auto) 0.02 (0.00-0.03) 10^3/uL Imm/Tot Granulo (auto) 0.3 (0.0-0.5) % Sodium 135 L (136-145) mmol/L Potassium 3.0 L (3.5-5.1) mmol/L Chloride 98 (98-107) mmol/L Carbon Dioxide 21.5 (21.0-32.0) mmol/L Anion Gap 18.5 BUN 12.0 (7.0-18.0) mg/dL Creatinine 1.23 (0.70-1.30) mg/dL Est GFR ( Amer) >60 (>=60 mL/min/1.73m^2) Est GFR (Non-Af Amer) 59 L (>=60 mL/min/1.73m^2) BUN/Creatinine Ratio 9.8 Glucose 126 H (74-106) mg/dL Calcium 9.2 (8.5-10.1) mg/dL Troponin I High Sens 11.4 (4.0-76.1) pg/mL Imaging Data Chest x-ray: Radiologist's impression: ITS Impressions Chest X-Ray 10/28/24 15:15 IMPRESSION: Mild airspace opacities noted at the left lung base. This is similar to the prior exam. Impression dictated by: Josep Jacinto M.D. 10/28/2024 3:27 PM Dictation Location: [place] [address] Electronically authenticated by: [id number] Y Date: 10/28/2024 15:27 ECG Data Attestation: I personally reviewed and interpreted this ECG as follows: (EKG on my interpretation shows sinus tachycardia with a rate of 120) Discharge Plan Discharge Chief Complaint: Weakness Clinical Impression: Dehydration Patient Disposition: Home, Self-Care Time of Disposition Decision: 17:09 Condition: Good Mode of Transportation: Private Vehicle Prescriptions / Home Meds: No Action fluticasone propionate 50 mcg/actuation spray,suspension 2 spray intranasal DAILY PRN (Reason: nasal congestion) Rx Instructions: administer into each nostril potassium chloride [Klor-Con M20] 20 mEq tablet,ER particles/crystals 20 meq PO BID topiramate 50 mg tablet 50 mg PO QAM Emgality Pen 120 mg/mL pen injector 120 mg SUBCUT .q21 days losartan 100 mg tablet 100 mg PO DAILY oxycodone-acetaminophen 5-325 mg tablet 0.5 tab PO Q12H PRN (Reason: pain) pregabalin 100 mg capsule 100 mg PO Q12H topiramate 200 mg tablet 200 mg PO .COMPLEX Rx Instructions: 200 mg orally 5pm and qhs; budesonide 0.5 mg/2 mL suspension for nebulization 0.5 mg inhalation Q12H PRN (Reason: shortness of breath or wheezing) meclizine 12.5 mg tablet 12.5 mg PO DAILY PRN (Reason: dizziness) sumatriptan succinate 100 mg tablet 100 mg PO Q2H PRN (Reason: migraine headache) Rx Instructions: MAX 2 IN 24 HOURS sumatriptan succinate 6 mg/0.5 mL pen injector 6 mg SUBCUT Q2H PRN (Reason: migraine headache) Rx Instructions: MAX 12 MG / 24 HOURS amitriptyline 100 mg tablet 100 mg PO .QHS atorvastatin 40 mg tablet 40 mg PO .QHS Breztri Aerosphere 160-9-4.8 mcg/actuation HFA aerosol inhaler 2 inh INHALATION DAILY celecoxib 200 mg capsule 400 mg PO Q12H folic acid 1 mg tablet 1 mg PO DAILY methenamine hippurate 1 gram tablet 1 g PO BID omeprazole 40 mg capsule,delayed release(DR/EC) 40 mg PO BID topiramate 100 mg tablet 100 mg PO DAILY venlafaxine 150 mg capsule,extended release 24hr 150 mg PO DAILY Tezspire 210 mg/1.91 mL (110 mg/mL) pen injector 210 mg SUBCUT .q28 days Botox 200 unit recon soln 240 unit subcut .q90 days Rx Instructions: head Print Language: Portuguese Instructions: Dehydration (ED) Referrals: Raquel Rayo MD [Primary Care Provider, Family Practice] - 1 week
--- NOTE | 2024-10-28 15:15 | XR_ITS ---
[facility] [place] [id number] Patient Name: VERNA NEELY MRN: [id number] date: 1960 Sex: M Assigned Patient Location: ER Current Patient Location: ER Accession/Order Number: [id number] Exam Date: 10/28/2024 15:26 Report Date: 10/28/2024 15:27 At the request of: HADLEY ARAUZ MD Procedure: XR chest 1V XR chest 1V 10/28/2024 3:17 PM SIGNS AND SYMPTOMS: ^SOB ^Y PROTOCOL: Frontal radiograph the chest COMPARISON: 10/02/2024 FINDINGS: The trachea is midline. The heart and mediastinal structures are within normal limits. Mild airspace opacities noted at the left lung base. This is similar to the prior exam. The bony thorax is intact. XR/XR chest 1V IMPRESSION: Mild airspace opacities noted at the left lung base. This is similar to the prior exam. Impression dictated by: Josep Jacinto M.D. 10/28/2024 3:27 PM Dictation Location[facility] Electronically authenticated by: [id number] Y Date: 10/28/2024 15:27
[2024-10-28] MEDS: 0.9 % SODIUM CHLORIDE 1,000 ML 1000 ML IV (15:38)
[2024-10-28] MEDS: ONDANSETRON PF 4 MG/2 ML VIAL IV (15:39)
[2024-10-28 15:43] LABS: Basophils Absolute Auto 0.1 10^3/uL (0.0-0.1); Basophils Percent Auto 0.8 % (0.2-2.0); Eosinophils Percent Auto 0.5 % (0.9-7.0); Hematocrit 49.2 % (42.0-54.0); Hemoglobin 16.8 g/dL (14.0-18.0); Immature Granulocytes Abs Auto 0.02 10^3/uL (0.00-0.03); Immature Granulocytes Pct Auto 0.3 % (0.0-0.5); Lymphocytes Absolute Auto 1.9 10^3/uL (1.2-3.8); Lymphocytes Percent Auto 25.8 % (20.5-60.0); Mean Corpuscular HGB Conc 34.1 g/dL (29.9-35.2); Mean Corpuscular Hemoglobin 28.9 pg (25.9-34.0); Mean Corpuscular Volume 84.5 fL (80.0-94.0); Mean Platelet Volume 9.7 fL (9.5-13.5); Monocytes Percent Auto 12.9 % (1.7-12.0); Neutrophils Absolute Auto 4.5 10^3/uL (1.4-6.5); Neutrophils Percent Auto 59.7 % (43.0-75.0); Platelet Count 270 10^3/uL (150-450); Red Blood Count 5.82 10^6/uL (4.70-6.10); Red Cell Distribution Width 14.7 % (11.0-15.0); White Blood Count 7.5 10^3/uL (4.0-11.0)
[2024-10-28 16:14] LABS: Anion Gap 18.5; BUN Creatinine Ratio 9.8; Calcium 9.2 mg/dL (8.5-10.1); Carbon Dioxide 21.5 mmol/L (21.0-32.0); Chloride 98 mmol/L (98-107); Estimated GFR (African America >60 (>=60 mL/min/1.73m^2); Estimated GFR (Non-African Ame 59 (>=60 mL/min/1.73m^2); Glucose 126 mg/dL (74-106); Sodium 135 mmol/L (136-145); Troponin I High Sensitivity 11.4 pg/mL (4.0-76.1)
== END 2024-10-28 17:37 | disposition home or self-care (01) ==
PROVIDERS: Emergency Provider Emergency Medicine; PCP Family Medicine
DX: E86.0 Dehydration (principal); R53.1 Weakness; R11.0 Nausea; R06.02 Shortness of breath
CPT/HCPCS: 36415; 71045; 80048; 81001; 84484; 85025; 93005; 96361; 96374; 99285; J2405

== ENCOUNTER 2024-11-08 14:12 | Observation (INO) | payer MEDICARE, SELFPAY ==
--- OUTSIDE RECORDS SUMMARY | 2024-11-07 11:15 | XMS_ITS ---
Author Name Auto Generated Organization OHIP Support Name Relationship Address Phone NONE Next of Kin Unknown Unavailable FLORINDASHILPI Next of Kin [address] [place] [address] + Shilpi Neely Next of Kin Unknown [phone] NONE Next of Kin Unknown Unavailable FLORINDASHILPI Next of Kin [address] [place] [address] + Debi Barksdale Next of Kin Unknown [phone] SariShilpi pearce Next of Kin Unknown [phone] NONE Next of Kin Unknown Unavailable FLORINDA SHILPI Next of Kin [address] [place] [address] + NONE Next of Kin Unknown Unavailable FLORINDA SHILPI Next of Kin [address] [place] [address] + NONE Next of Kin Unknown Unavailable FLORINDA SHILPI Next of Kin [address] [place] [address] + NONE Next of Kin Unknown Unavailable FLORINDASHILPI Next of Kin [address] [place] [address] + NONE Next of Kin Unknown Unavailable FLORINDASHILPI Next of Kin [address] [place] [address] + NONE Next of Kin Unknown Unavailable FLORINDA SHILPI Next of Kin [address] [place] [address] + NONE Next of Kin Unknown Unavailable FLORINDA SHILPI Next of Kin [address] [place] [address] + NONE Next of Kin Unknown Unavailable SAVEDSHILPI PEARCE Next of Kin [address] [facility] [place] [address] + NONE Next of Kin Unknown Unavailable SAVEDSHILPI PEARCE Next of Kin [address] [facility] [place] [address] + NONE Next of Kin Unknown Unavailable SAVEDSHILPI PEARCE Next of Kin [address] [facility] [place] [address] + NONE Next of Kin Unknown Unavailable SAVEDSHILPI PEARCE Next of Kin [address] [facility] [place] [address] + NONE Next of Kin Unknown Unavailable SAVEDRIRI, SHILPI Next of Kin [address] [facility] [place] [address] + NONE Next of Kin Unknown Unavailable SAVEDSHILPI PEARCE Next of Kin [address] [facility] [place] [address] + NONE Next of Kin Unknown Unavailable SAVEDSHILPI PEARCE Next of Kin [address] [facility] [place] [address] + NONE Next of Kin Unknown Unavailable SAVEDSHILPI PEARCE Next of Kin [address] [facility] [place] [address] + NONE Next of Kin Unknown Unavailable SAVEDSHILPI PEARCE Next of Kin [address] [facility] [place] [address] + NONE Next of Kin Unknown Unavailable SAVEDSHILPI PEARCE Next of Kin [address] [facility] [place] [address] + Shilpi Neely Next of Kin Unknown [phone] Shilpi Neely Next of Kin Unknown [phone] Care Team Providers Care Precision Instrument Maker And Repairer Name Role Phone ZOE BROWN Attending Unavailable RACHEL VEGA Primary Care Unavailable GIANLUCA CASTELLANO Attending Unavailable RACHEL VEGA Primary Care Unavailable GIANLUCA CASTELLANO Attending Unavailable RACHEL VEGA Primary Care Unavailable GIANLUCA CASTELLANO Referring Unavailable ZOE BROWN Attending Unavailable RACHEL VEGA Primary Care Unavailable ZOE BROWN Attending Unavailable RACHEL VEGA Primary Care Unavailable JESSICA RANDLE Attending Unavailable VEGA, RACHEL E Primary Care Unavailable REBECCA RANDLENIFER L Referring Unavailable GRAY, GIANLUCA E Attending Unavailable VEGA, RACHEL E Primary Care Unavailable JERREBECCAJESSICA L Attending Unavailable VEGA, RACHEL E Primary Care Unavailable ZOE BROWN Attending Unavailable VEGA, RACHEL E Primary Care Unavailable JERJESSICA L Attending Unavailable VEGA, RACHEL E Primary Care Unavailable GIANLUCA CASTELLANO E Attending Unavailable VEGA, RACHEL E Primary Care Unavailable JER, JESSICA L Attending Unavailable VEGA, RACHEL E Primary Care Unavailable ZOE BROWN Attending Unavailable VEGA, RACHEL E Primary Care Unavailable GRAY GIANLUCA E Attending Unavailable VEGA, RACHEL E Primary Care Unavailable RICH MAGANA Referring Unavailable VEGA, RACHEL E Primary Care Unavailable Vega, Rachel E Primary Care Unavailable AnnvilleJessica davies L Admitting Unavailable AnnvilleJessica davenport L Attending Unavailable Vega, Rachel E Primary Care Unavailable Jessica Rodriguez L Admitting Unavailable AnnvilleJessica davies L Attending Unavailable Vega, Rachel E Primary Care Unavailable Vega, Rachel E Referring Unavailable Melissa Wilson Admitting Unavail able Demboske, Melissa Williamson Attending Unavail able Brandon Zarate E Admitting Unavailable HayBrandon E Attending Unavailable Vega, Rachel E Primary Care Unavailable Duron, Barbara Admitting Unavailable Duron, Barbara Attending Unavailable TATA, JESSICA E Attending Unavailable TATA, JESSICA E Admitting Unavailable Duron, Barbara Admitting Unavailable Duron, Barbara Attending Unavailable TATA, JESSICA E Attending Unavailable TATA, JESSICA E Attending Unavailable TATA, JESSICA E Attending Unavailable TATA, JESSICA E Attending Unavailable TATA, JESSICA E Attending Unavailable TATA, JESSICA E Admitting Unavailable VEGA, RACHEL Referring Unavailable Duron, Barbara Admitting Unavailable Duron, Barbara Attending Unavailable Issa Gonzales. Attending Unavailable Issa Gonzales Admitting Unavailable VEGA, RACHEL Referring Unavailable Issa Gonzales Admitting Unavailable VEGA, RACHEL Referring Unavailable Issa Gonzales Attending Unavailable Issa Gonzales Attending Unavailable Issa Gonzales Admitting Unavailable VEGA, RACHEL Referring Unavailable Issa Gonzales. Referring Unavailable Issa Gonzales. Attending Unavailable Issa Gonzales Attending Unavailable Issa Gonzales Referring Unavailable Issa Gonzales Admitting Unavailable MAGANA, RICH M Attending Unavailable RACHEL VEGA Primary Care Unavailable RICH MAGANA Attending Unavailable RACHEL VEGA Primary Care Unavailable RICH MAGANA Attending Unavailable RACHEL VEGA Primary Care Unavailable [place] Attending Unavailable RACHEL VEGA Primary Care Unavailable PROBLEMS DATE TYPE CONDITION / CODE ATTENDING STATUS KATHARINE RCE 5 Unknown Pain, unspecified / R52(ICD-10) NA [facility] 5 Unknown Stroke Alert / UNK(Unknown) [facility] 3 Admitting Diagnosis Hypokalemia / E87.6(ICD-10) ZOE BROWN [facility] 5 Unknown 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) Melissa Wilson [facility] 3 Admitting Diagnosis Post covid-19 condition, unspecified / U09.9(ICD-10) COLE QUINTANA [facility] 4 Admitting Diagnosis Interstitial pulmonary disease, unspecified / J84.9(ICD-10) [facility] 3 Admitting Diagnosis Other specified chronic obstructive pulmonary disease / J44.89(ICD-10) ZOE BROWN [facility] 3 Admitting Diagnosis Gastro-esophageal reflux disease without esophagitis / K21.9(ICD-10) ZOE BROWN [facility] 4 Admitting Diagnosis Chronic migraine without aura, not intractable, without status migrainosus / G43.709(ICD-10) [facility] 4 Admitting Diagnosis Chronic migraine without aura, intractable, with status migrainosus / G43.711(ICD-10) [facility] 3 Admitting Diagnosis Major depressive disorder, single episode, severe without psychotic features (Multi) / F32.2(ICD-10) [facility] 3 Admitting Diagnosis Dizziness and giddiness / R42(ICD-10) GIANLUCA CASTELLANO [facility] 4 Admitting Diagnosis Severe persistent asthma with (acute) exacerbation (Multi) / J45.51(ICD-10) RCIH MAGANA [facility] 4 Admitting Diagnosis Interstitial pulmonary disease, unspecified (Multi) / J84.9(ICD-10) RICH MAGANA [facility] 4 Admitting Diagnosis Candidal stomatitis / B37.0(ICD-10) STEPHANIEZOE BILLY [facility] Amb[facility] 3 Admitting Diagnosis Other specified chronic obstructive pulmonary disease (Multi) / J44.89(ICD-10) [facility] 3 Admitting Diagnosis 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 (Multi) / D80.6(ICD-10) [facility] 4 Unknown Pain in left lower leg / M79.662(ICD-10) Jessica Rodriguez [facility] 4 Unknown Pain in left ankle and joints of left foot / M25.572(ICD-10) Jessica Rodriguez [facility] PROCEDURES No Procedure Records Found RESULTS PROVIDER LETTER Observed: 10/26/2024 1:07 PM Status: F Source: [facility] Provider Letter October 26, 2024 BRANDON NEELY [address] [place] [address] : 1960 Dear Sindi Brandon Neely, We have been trying to reach you with no success. It is important that you return our call regarding your follow up appointment upon receiving this letter. Also, at the time of your call, please provide us with your current information. Thank you for your prompt attention to this matter. Please know that if there is no contact, or another no show, you will be discharged from our practice. Please call the number as son as able to get appointment scheduled. Sincerely, [facility] [address] [address] ext.3 COMPLETE BLOOD COUNT PANEL Collected: 10/12/2024 4:18 AM Status: F Source: [facility] TYPE CODE TESTS RESULT OUT OF RANGE REFERENCE UNITS LAB 6690-2(LOINC) Leukocytes 7.9 4.4-11.3 x10*3/ uL LAB 61769-3(LOINC) Erythrocytes.nuc l eated/100 leukocytes 0.0 0.0-0.0 /100 WBCs LAB 789-8(LOINC) Erythrocytes 4.18 Low 4.50-5.90 x10* 6/uL LAB 718-7(LOINC) Hemoglobin 11.9 Low 13.5-17.5 g/dL LAB 4544-3(LOINC) Hematocrit 36.2 Low 41.0-52.0 % LAB 787-2(LOINC) Erythrocyte mean corpuscular volume 87 80-100 fL LAB 785-6(LOINC) Erythrocyte mean corpuscular hemoglobin 28.5 26.0-34.0 pg LAB 786-4(LOINC) Erythrocyte mean corpuscular hemoglobin concentration 32.9 32.0-36.0 g/dL LAB 788-0(LOINC) Erythrocyte distribution width 14.2 11.5-14.5 % LAB 777-3(LOINC) Platelets 199 150-450 x10*3/uL Performed By: #### [id number] # ### [facility] IYER ([id number]) [facility] ([facility]) [address] [place] [address] BASIC METABOLIC 2000 PANEL Collected: 0 10/12/2024 4:18 AM Status: F Source: [facility] TYPE CODE TESTS RESULT OUT OF RANGE REFERENCE UNITS LAB 2345-7(LOINC) Glucose 83 74-99 mg/dL LAB 2951-2(LOINC) Sodium 139 136-145 mmol/L LAB 2823-3(LOINC) Potassium 3.9 3.5-5.3 mmol/L LAB 2075-0(LOINC) Chloride 112 High 98-107 mmol/L LAB 8-9(LOINC) Carbon dioxide 22 21-32 mmo l/L LAB 35000-5(LOINC) Anion gap 9 Low 10-20 mmol/L LAB 3094-0(LOINC) Urea nitrogen 16 6-23 mg/d L LAB 2160-0(LOINC) Creatinine 0.92 0.50-1.30 mg/dL LAB 46446-8(LOINC) Glomerular filtration rate/1.73 sq M.predicted >90 >60 mL/min/1 .73m*2 Result Comment: Calculations of estimated GFR are performed using the 2020 CKD- EPI Study Refit equation without the race variable for the IDMS-Traceable creatinine methods. https://jasn.asnjournals.org/content/early//ASN.4782406823 LAB 25737-7([facility]) Calcium 7.7 Low 8.6-10.3 mg/dL Performed By: #### 42081-1 # ### JOHN IYER ([id number]) [facility] ([facility]) [address] [place] [address] PATIENT LETTER [facility] Observed: 10/06/2024 10:33 AM Status: F Source: [facility] Patient Letter [facility] October 06, 2024 BRANDON NEELY [address] [place] [address] : 1960 Dear _ , You missed your scheduled appointment on10/06/24 at 10am with Urology. Please note our appointment slots fill quickly. When you fail to cancel or reschedule an appointment the office is unable to fill the appointment slot that was reserved for you. In the future, we ask that you call 24 hours in advance to cancel your appointment. Our current reminder system gives you the opportunity to cancel by responding to our reminder text, phone call or email. You can also call the office to reschedule during normal business hours or use our on-line scheduling portal at your convenience. Please call [phone] to reschedule. Our goal is to provide convenient and quality care to all of our patients. We appreciate your consideration regarding any future cancellations. Sincerely, [facility] PATIENT LETTER [facility] Observed: 10/06/2024 10:33 AM Status: F Source: [facility] Patient Letter [facility] October 06, 2024 BRANDON NEELY [address] [place] [address] : 1960 Dear _ , You missed your scheduled appointment on 10/06/24 at 10am with Urology. Please note our appointment slots fill quickly. When you fail to cancel or reschedule an appointment the office is unable to fill the appointment slot that was reserved for you. In the future, we ask that you call 24 hours in advance to cancel your appointment. Our current reminder system gives you the opportunity to cancel by responding to our reminder text, phone call or email. You can also call the office to reschedule during normal business hours or use our on-line scheduling portal at your convenience. Please call [phone] to reschedule. Our goal is to provide convenient and quality care to all of our patients. We appreciate your consideration regarding any future cancellations. Sincerely, [facility] COMPLETE BLOOD COUNT PANEL Collected: 10/06/2024 4:44 AM Status: F Source: [facility] TYPE CODE TESTS RESULT OUT OF RANGE REFERENCE UNITS LAB 6690-2(LOINC) Leukocytes 6.1 4.4-11.3 x10*3/ uL LAB 09980-5(LOINC) Erythrocytes.nuc l eated/100 leukocytes 0.0 0.0-0.0 /100 WBCs LAB 789-8(LOINC) Erythrocytes 4.02 Low 4.50-5.90 x10* 6/uL LAB 718-7(LOINC) Hemoglobin 11.7 Low 13.5-17.5 g/dL LAB 4544-3(LOINC) Hematocrit 36.6 Low 41.0-52.0 % LAB 787-2(LOINC) Erythrocyte mean corpuscular volume 91 80-100 fL LAB 785-6(LOINC) Erythrocyte mean corpuscular hemoglobin 29.1 26.0-34.0 pg LAB 786-4(LOINC) Erythrocyte mean corpuscular hemoglobin concentration 32.0 32.0-36.0 g/dL LAB 788-0(LOINC) Erythrocyte distribution width 15.6 High 11.5-14.5 % LAB 777-3(LOINC) Platelets 258 150-450 x10*3/uL Performed By: #### 11214-8 # ### JOHN SHIREEN ([id number]) [facility] ([facility]) [address] [place] [address] COMPREHENSIVE METABOLIC 2000 PANEL Collected: 10/06/2024 4:44 AM Status: F Source: [facility] TYPE CODE TESTS RESULT OUT OF RANGE REFERENCE UNITS LAB 2345-7(LOINC) Glucose 71 Low 74-99 mg/dL LAB 2951-2(LOINC) Sodium 139 136-145 mmol/L LAB 2823-3(LOINC) Potassium 4.2 3.5-5.3 mmol/L LAB 2075-0(LOINC) Chloride 114 High 98-107 mmol/L LAB 2028-9(LOINC) Carbon dioxide 20 Low 21-32 mmo l/L LAB 27065-2(LOINC ) Anion gap 9 Low 10-20 mmol/L LAB 3094-0(LOINC) Urea nitrogen 27 High 6-23 mg/d L LAB 2160-0(LOINC) Creatinine 0.82 0.50-1.30 mg/dL LAB 06710-1(LOINC ) Glomerular filtration rate/1.73 sq M.predicted >90 >60 mL/min/ 1.73m*2 Result Comment: Calculations of estimated GFR are performed using the 2020 CKD- EPI Study Refit equation without the race variable for the IDMS-Traceable creatinine methods. https://jasn.asnjournals.org/content//ASN.4674528242 LAB 98477-7(LOINC ) Calcium 7.8 Low 8.6-10.3 mg/dL LAB 05304-3(LOINC ) Albumin 3.1 Low 3.4-5.0 g/dL LAB 6768-6(LOINC) Alkaline phosphatase 64 33-136 U/L LAB 2885-2(LOINC) Protein 4.8 Low 6.4-8.2 g/dL LAB 09641-0(LOINC ) Aspartate aminotransferase 9 9-39 U/L LAB 1975-2(LOINC) Bilirubin 0.4 0.0-1.2 mg/dL LAB 1743-4(LOINC) Alanine aminotransferase 9 Low 10-52 U/L Result Comment: Patients molly ated with Sulfasalazine may generate falsely decreased results for ALT. Performed By: #### 27440-4 # ### [facility] IYER ([id number]) [facility] ([facility]) [address] [place] [address] URINE CULTURE Observed: 10/02/2024 3:56 AM Status: F Source: [facility] <9,000 colonies/ml mixed bacterial skin contaminants 2 Days PERFORMED BY: [facility] [address] [place] [address] PATHOLOGIST COMMUNITY CENTER WORKER ALBA BROWNING M.D. Performed By: #### CUU #### [facility] [address] PSA TOTAL Collected: 10:49 AM Status: F Source: [facility] TYPE CODE TESTS RESULT OUT OF RANGE REFERENCE UNITS LAB 2857-1([facility]) PROSTATE SPECIFIC AG:MCNC:PT:S ER/PLAS:QN: 2.5 Normal 0.1-3.5 ng/mL Result Comment: The concentr ation of PSA determined by different manufacturers can vary due to differences in assay methods and reagent specificity. Values obtained from different assay methods cannot be used interchangeably. The methodology used for this result was chemiluminescence using [employer]'s Access Hybritech PSA reagent. Performed By: #### [id number] #### [facility] [address] [place] [address] AMBULATORY VISIT SUMMARY Observed: 09/14 9:00 AM Status: F Source: [facility] Ambulatory Visit Summary BRANDON NEELY :1960 Visit Date:09/14/2024 Ambulatory Visit Instructions Your Diagnosis Rising PSA level Family history of prostate cancer Your Care Team Attending Physician - TATA TEIXEIRA, JESSICA English Primary Care Physician - RACHEL VEGA MD This Is Your Medications List [facility] Prescription (no lifting >30lbs, no bending to the ground, no using ramp unless necessary) Oxygen (Home Oxygen) acetaZOLAMIDE (acetaZOLAMIDE 500 mg oral capsule, extended release) amitriptyline (amitriptyline 100 mg oral tablet) budesonide/formoterol/glycopyrrolate (Breztri Aerosphere inhalation aerosol) celecoxib (celecoxib 200 mg Cap) clonidine cyanocobalamin (Vitamin B12) cyclobenzaprine (cyclobenzaprine 10 mg Tab) duloxetine (duloxetine 20 mg oral delayed release capsule) fluticasone nasal (fluticasone Nasal 0.05 mg/inh [place]) galcanezumab (Emgality Prefilled Pen 120 mg/mL subcutaneous [...] Tab) sumatriptan (SUMAtriptan 6 mg/0.5 mL SubQ Isabel) tezepelumab (Tezspire) topiramate (topiramate 50 mg Tab) [...] of surgery to release entrapped nerve, lamenectomy L4- L5, Procedure on femur. What to do next Scheduled Follow-Up Appointments Thursday. 2024 2:00 PM EDT With: JESSICA PAYTON PA-C Where: [facility] [address] [place] [address] 2024 11:30 AM EDT With: Issa Gonzales [...] fluticasone nasal (fluticasone Nasal 0.05 mg/ inh [place]) Unchanged galcanezumab (Emgality Prefilled Pen 120 mg/ [...] Oxygen) 2 Liter/minute At bedtime Unchanged potassium chloride (Klor-Con M20 oral tablet, extended release) 2 times a day Unchanged pregabalin (Lyrica 100 mg Cap) 1 Capsules By Mouth 2 times a day Bilateral sacroiliitis Lumbar postlaminectomy syndrome Unchanged spironolactone (spironolactone 50 mg Tab) 1 Tablets By Mouth Every day Unchanged sumatriptan (SUMAtriptan 6 mg/ 0.5 mL SubQ Isabel) As needed for Migraine headache Unchanged tezepelumab (Tezspire) injection once per 28 days for asthma Unchanged topiramate (topiramate 50 mg Tab) Take 150mg at breakfast Take 200 Mg at 5pm and 250 mg at HS Unchanged venlafaxine (venlafaxine 150 mg Cap-ER) 1 Capsules By Mouth 2 times a day 75 mg with dinner Unchanged verapamil (verapamil 120 mg Cap-ER) 1 Capsules By Mouth 2 times a day Allergies Aspartame (Headache) Indocin (Rash, Hives) MSG (monosodium glutamate) (Paralysis) baclofen (Weakness) ciprofloxacin (Hives) penicillins (Hives) propranolol (Hypotension) sulfa drugs (Rash) Problems Ongoing - Any problem that you are currently receiving treatment for. Anxiety BPH with urinary obstruction Decreased libido Family history of prostate cancer Hyperlipemia Hypertension Incomplete emptying of bladder Recurrent UTI Rising PSA level Sleep apnea Vertigo Historical - Any problem that you are no longer receiving treatment for. Asthma COPD (chronic obstructive pulmonary disease) H/O: TIA Hypogonadism male Low testosterone in male Prostate cancer screening Patient Survey You may receive a survey via text or e-mail asking about your office visit. Please share your experience with us by completing your survey. We appreciate your feedback and thank you for choosing us for your care. POTASSIUM Collected: 5 1:13 PM Status: F Source: [facility] TYPE CODE TESTS RESULT OUT OF RANGE REFERENCE UNITS LAB 05823053 POTASSIUM 3.8 Normal 3.5-5.3 mmol/L Performed By: #### 733 #### [facility] [address], [address] [place] [address] Opticianry Teacher: Oh Mckenna MD COMPLETE BLOOD COUNT AUTO DIFF Collected: 09/13/2024 9:48 AM Status: F Source: F [facility] TYPE CODE TESTS RESULT OUT OF RANGE REFERENCE UNITS LAB WBC White Blood Count 5.3 Normal 4.1-10.5 10*3/uL LAB UNWBC Uncorrected WBC 5.3 Normal 4.1-10.5 10*3/uL LAB RBC Red Blood Count 4.75 Normal 3.90-5.60 10*6/u L LAB HGB Hemoglobin 13.7 Normal 13.0-17.0 g/dL LAB HCT Hematocrit 41.2 Normal 38.8-50.0 % LAB MCV Mean Corpuscular Volume 86.9 Normal 83.5-101 fL LAB MCH Mean Corpuscular Hemoglobin 29.0 Normal 27.5-35.2 pg LAB MCHC Mean Corpuscular HGB Conc 33.3 Normal 32.5-35.6 g/dL LAB RDW Red Cell Distribution Width 15.0 High 12.0-14.8 % LAB PLT Platelet Count 187 Normal 150-450 10*3/uL LAB MPV Mean Platelet Volume 7.7 Normal 6.6-10.1 fL LAB NE% Neutrophils % (Auto) 50.2 . % LAB LY% Lymphocytes % (Auto) 38.1 . % LAB MO% Monocytes % (Auto) 8.8 . % LAB EO% Eosinophils % (Auto) 1.5 . % LAB BA% Basophils % (Auto) 1.4 . % LAB NRBC% NRBC% 0.1 Normal 0-0.5 /100{WBC} LAB NE# Neutrophils # (Auto) 2.6 Normal 1.8-7.7 10*3/uL LAB LY# Lymphocytes # (Auto) 2.0 Normal 1.00-4.8 10*3/uL LAB MO# Monocytes # (Auto) 0.5 Normal 0.0-0.8 10*3/uL LAB EO# Eosinophils # (Auto) 0.1 Normal 0.0-0.45 10*3/uL LAB BA# Basophils # (Auto) 0.1 Normal 0.0-0.2 10*3/uL Result Comment: PERFORMED BY : [place] [address] PATHOLOGIST COMM[employer]ITY CENTER WORKER BAMBI CHONG M.D. Performed By: #### CBC, CMP, FE and TIBC, BRIAN #### [place] [id number] [facility] COMPREHENSIVE METABOLIC PANEL Collected: 09/13/2024 9 :48 AM Status: F Source: [facility] TYPE CODE TESTS RESULT OUT OF RANGE REFERENCE UNITS LAB GLU Glucose 100 Normal 70-100 mg/dL Result Comment: Random Gluco se Reference Range is dependent on time and content of last meal. Glucose of more than 200 mg/dL in a nonstressed, ambulatory subject supports the diagnosis of Diabetes Mellitus. ADA recommended reference range LAB BUN Blood Urea Nitrogen 20 Normal 7-25 mg/d L LAB CREATT Creatinine 1.06 Normal 0.70-1.30 mg/dL LAB GFReNR Estimated GFR >60.0 mL/Min LAB NA Sodium 138 Normal 136-145 mmol/L LAB K Potassium 3.9 Normal 3.5-5.1 mmol/L LAB CL Chloride 110 High 98-107 mmol/L LAB CO2 Carbon Dioxide 23.6 Normal 21.0-31.0 mmol/L LAB GAP Anion Gap 8.3 Normal 6.0-15.0 meq/L LAB CA Calcium 8.4 Low 8.6-10.3 mg/dL LAB TP Total Protein 6.5 Normal 6.4-8.9 g/dL LAB ALB Albumin Level 3.7 Normal 3.5-5.7 g/dL LAB GLOB Globulin 2.8 g/dL LAB AGRATIO Albumin/Globulin Ratio 1.3 LAB BILIT Bilirubin,Total 0.3 Normal 0.3-1.0 mg/dL LAB AST Aspartate Amino Transferase 13 Normal 13-39 U/L LAB ALT Alanine Aminotransferase 9 Normal 7-52 U/L LAB ALP Alkaline Phosphatase 94 Normal 34-104 U/L LAB CRCLPHA Creatinine Clr C alc Pharmacy 78.31 Performed By: #### CBC, CMP, FE and TIBC, BRIAN #### [place] [id number] [facility] IRON AND TIBC PROFILE Collected: 09/13/2024 9:48 AM Status: F Source: [facility] TYPE CODE TESTS RESULT OUT OF RANGE REFERENCE UNITS LAB FE Iron 66 Normal 50-212 ug/dL LAB TIBCT Total Iron Binding Capacity 307 Normal 255-450 ug/dL LAB FESAT% % Iron Saturation 21.5 Normal 20-50 % LAB TRANS Transferrin 219 Normal 203-362 mg/dL Performed By: #### CBC, CMP, FE and TIBC, BRIAN #### [facility] [address] [place] [id number] [facility] FERRITIN Collected: 9:48 AM Status: F Source: [facility] TYPE CODE TESTS RESULT OUT OF RANGE REFERENCE UNITS LAB BRIAN Ferritin 16.5 Low 23.9-336.2 ng/mL Result Comment: PERFORMED BY : [facility] [address] [place] [address] PATHOLOGIST COMMUNITY CENTER WORKER BAMBI CHONG M.D. Performed By: #### CBC, CMP, FE and TIBC, BRIAN #### [facility] [address] [id number] [facility] CONSULTATION NOTE Observed: 07/06/2024 10:52 AM Status: F Source: [facility] Consultation Note Patient is presenting with complaints of [...] with any questions or concerns that arise. Result Comment: Electronical ly Signed By: Issa Gonzales DO\Sindibr\Date and Time Signed: 07/06/24 11:01 EST OPERATIVE REPORT Observed: 06/09/2024 11:26 AM Status: F Source: [facility] Operative Report Diagnosis: M48.062, lumbar stenosis with [...] the epidural space was confirmed using the pnoh-fn-wkakmaymge technique and 2 cc of air. Injection [...] and agrees to continue currently prescribed/recommended therapies. Result Comment: Electronical ly Signed By: Issa Gonzales DO\.br\Date and Time Signed: 06/09/24 11:27 EST MAIN OR INTRAOPERATIVE RECORD Observed: 06/09/2024 11:24 AM Status: F Source: [facility] Main OR Intraoperative Recor d IntraOp Document Type FT Summary Primary Physician: Issa Gonzales DO Finalized Date/Time: 06/09/24 11:27:18 Pt. Name: BRANDON NEELY/Sex: 1960 Male Med Rec #: [id number] Physician: Issa Gonzales DO Financial #: [id number] Pt. Type: P Room/Bed: / Admit/Disch: 06/09/24 09:53:26 - Institution: Case Times FTPM Entry 1 Patient Times In Room 06/09/24 11:21:00 Out Room 06/09/24 11:27:00 Procedure Times Start 06/09/24 11:24:00 Stop 06/09/24 11:26:00 Anesthesia Times Last Modified By: Danyelle Rome RN 06/09/24 11:27:13 Case Attendance FTPM Entry 1 Entry 2 Entry 3 Case Attendee Issa Gonzales DO, RN, Danyelle Saeed RN, Matthew Rowan Role Performed Surgeon - Primary Cyber Policy And Strategy Planner - Primary Scrub - Primary Time In 06/09/24 11:21:00 06/09/24 11:21:00 06/09/24 11:21:00 Time Out 06/09/24 11:27:00 06/09/24 11:27:00 06/09/24 11:27:00 Procedure LUMBAR EPIDURAL STEROID LUMBAR EPIDURAL STEROID LUMBAR EPIDURAL STEROID INJECTION(.) INJECTION(.) INJECTION(.) Comments Last Modified By: Wild GONZALEZ, Danyelle Rome RN, Danyelle Lilly RN 06/09/24 11:27:14 06/09/24 11:27:14 06/09/24 11:27:14 Entry 4 Case Attendee Rosalee Radford Role Performed [employer] Safety Program Coordinator Time In 06/09/24 11:21:00 Time Out 06/09/24 [...] Danyelle Rome RN, Given Participants Christophe GONZALEZ, Matthew Rowan, Issa Gonzales DO, Rosalee Radford Time Out Complete 06/09/24 11:22:00 Outcomes Met? [...] and tissue Entry 1 Skin Integrity Intact, [place], Warm, & Skin Abnormality No Dry Outcomes [...] RN Outcomes Met? Yes Last Modified By: Danyelle Rome RN 06/09/24 11:23:34 Post-Care Text: The patient is free from signs and symptoms of injury related to positioning Transport To OR FT Pre-Care Text: Transports according to individual needs. Evaluates for signs and symptoms of skin and tissue injury as a result of transfer or transport Entry 1 Via Cart By Danyelle Rome RN Safety Precautions Safety Strap, Side Outcomes Met? Yes Rails Up Last Modified By: Danyelle Rome RN 06/09/24 11:23:38 Post-Care Text: The patient is free from signs and symptoms of injury related to transfer/transport Skin Prep FTPM Pre-Care Text: Performs skin preparations Entry 1 Procedure LUMBAR EPIDURAL STEROID Prep Area BLOCK INJECTION SITE INJECTION(.) Prep Agents Chloraprep/Dry Prior to Start Dry Time 06/09/24 11:21:00 Draping Stop Dry Time 06/09/24 11:24:00 Hair Removal Methods Not Indicated By Matthew Saeed RN Outcomes Met? Yes Last Modified By: Danyelle Rome RN 06/09/24 11:23:49 Post-Care Text: The patient is free from signs and symptoms of infection Departure From OR FT Pre-Care Text: Transports according to individual needs. Evaluates for signs and symptoms of skin and tissue injury as a result of transfer or transport. Entry 1 Via Cart Safety Precautions Safety Strap, Side Rails Up PostOp Destination PACU Transported By Danyelle Rome RN Patient Status Stable Report Given Dina Barrera RN To/Hand Off Communication Skin. Condition Dry, Intact Airway Maintenance Oxygen in Use? No Outcomes Met? Yes Last Modified By: Danyelle Rome RN 06/09/24 11:23:57 Post-Care Text: The patient is free from signs and symptoms of injury related to transfer/transport Dressing/Packing FTPM Pre-Care Text: Administers care to wound sites Entry 1 Type Dressing Site and Details 4x4 and opsite Outcomes Met? Yes Last Modified By: Danyelle Rome RN 06/09/24 11:24:08 Post-Care Text: The patient is free from signs and symptoms of infection Medication Administration FTPM Pre-Care Text: Verifies allergies, administers prescribed medications and solutions, administers prescribed antibiotic therapy and immunizing agents as ordered, evaluates response to medications Administers prescribed medications and solutions Entry 1 Route of Admin Block Expiration Date Yes Verified Ordered By Issa Gonzales DO Transcribed/To Danyelle Rome RN Field By Administered By Issa Gonzales DO Outcomes Met? Yes Last Modified By: Danyelle Rmoe RN 06/09/24 11:24:19 Post-Care Text: The patient received appropriate medication(s) safely administered during the perioperative period X-Rays & Images FTPM Pre-Care Text: Assess history of previous radiation exposure and implements protective measures Entry 1 X-Ray Type C-Arm Contrast Used? Yes Outcomes Met? Yes Last Modified By: Danyelle Rome RN 06/09/24 11:24:25 Post-Care Text: The patient is free from signs and symptoms of radiation injury Case Comments <None> Finalized By: Danyelle Rome RN Document Signatures Signed By: Danyelle Rome RN 06/09/24 11:27 MAIN OR PREOPERATIVE RECORD Observed: 8:45 AM Status: F Source: [facility] Main OR Preoperative Record Holding Area Document Type FTPM Summary Primary Physician: Issa Gonzales DO Finalized Date/Time: 06/09/24 10:06:39 Pt. Name: BRANDON NEELY/Sex: 1960 Male Med Rec #: [id number] Physician: Issa Gonzales DO Financial #: [id number] Pt. Type: P Room/Bed: / Admit/Disch: 06/09/24 [...] No Patient states Yes Comment - Adult son-Shilpi postop adult Supervision supervision available Case Cancelled in No Holding Area see comments below for reason Last Modified By: Steffanie Freeman RN 06/09/24 10:06:35 Finalized By: Steffanie Freeman RN Document Signatures Signed By: Steffanie Freeman RN 06/09/24 10:06 COMPLETE BLOOD COUNT AUTO DIFF Collected: 05/27/2024 1:10 PM Status: F Source: F [facility] TYPE CODE TESTS RESULT OUT OF RANGE REFERENCE UNITS LAB WBC White Blood Count 5.3 Normal 4.1-10.5 10*3/uL LAB UNWBC Uncorrected WBC 5.3 Normal 4.1-10.5 10*3/uL LAB RBC Red Blood Count 5.14 Normal 3.90-5.60 10*6/u L LAB HGB Hemoglobin 14.7 Normal 13.0-17.0 g/dL LAB HCT Hematocrit 44.5 Normal 38.8-50.0 % LAB MCV Mean Corpuscular Volume 86.6 Normal 83.5-101 fL LAB MCH Mean Corpuscular Hemoglobin 28.6 Normal 27.5-35.2 pg LAB MCHC Mean Corpuscular HGB Conc 33.1 Normal 32.5-35.6 g/dL LAB RDW Red Cell Distribution Width 14.9 High 12.0-14.8 % LAB PLT Platelet Count 229 Normal 150-450 10*3/uL LAB MPV Mean Platelet Volume 7.9 Normal 6.6-10.1 fL LAB NE% Neutrophils % (Auto) 57.6 . % LAB LY% Lymphocytes % (Auto) 31.8 . % LAB MO% Monocytes % (Auto) 7.9 . % LAB EO% Eosinophils % (Auto) 1.5 . % LAB BA% Basophils % (Auto) 1.2 . % LAB NRBC% NRBC% 0.1 Normal 0-0.5 /100{WBC} LAB NE# Neutrophils # (Auto) 3.1 Normal 1.8-7.7 10*3/uL LAB LY# Lymphocytes # (Auto) 1.7 Normal 1.00-4.8 10*3/uL LAB MO# Monocytes # (Auto) 0.4 Normal 0.0-0.8 10*3/uL LAB EO# Eosinophils # (Auto) 0.1 Normal 0.0-0.45 10*3/uL LAB BA# Basophils # (Auto) 0.1 Normal 0.0-0.2 10*3/uL Result Comment: PERFORMED BY : [place] [address] PATHOLOGIST COMMUNITY CENTER WORKER BAMBI CHONG M.D. Performed By: #### CBC, CMP, FE and TIBC, BRIAN #### [facility] [address] [place] [address] COMPREHENSIVE METABOLIC PANEL Collected: 05/27/2024 1 :10 PM Status: F Source: [facility] TYPE CODE TESTS RESULT OUT OF RANGE REFERENCE UNITS LAB GLU Glucose 94 Normal 70-100 mg/dL Result Comment: Random Gluco se Reference Range is dependent on time and content of last meal. Glucose of more than 200 mg/dL in a nonstressed, ambulatory subject supports the diagnosis of Diabetes Mellitus. ADA recommended reference range LAB BUN Blood Urea Nitrogen 27 High 7-25 mg/d L LAB CREATT Creatinine 1.30 Normal 0.70-1.30 mg/dL LAB GFReNR Estimated GFR >60.0 mL/Min LAB NA Sodium 138 Normal 136-145 mmol/L LAB K Potassium 3.4 Low 3.5-5.1 mmol/L LAB CL Chloride 109 High 98-107 mmol/L LAB CO2 Carbon Dioxide 22.5 Normal 21.0-31.0 mmol/L LAB GAP Anion Gap 9.9 Normal 6.0-15.0 meq/L LAB CA Calcium 8.6 Normal 8.6-10.3 mg/dL LAB TP Total Protein 6.6 Normal 6.4-8.9 g/dL LAB ALB Albumin Level 4.0 Normal 3.5-5.7 g/dL LAB GLOB Globulin 2.6 g/dL LAB AGRATIO Albumin/Globulin Ratio 1.5 LAB BILIT Bilirubin,Total 0.5 Normal 0.3-1.0 mg/dL LAB AST Aspartate Amino Transferase 13 Normal 13-39 U/L LAB ALT Alanine Aminotransferase 7 Normal 7-52 U/L LAB ALP Alkaline Phosphatase 101 Normal 34-104 U/L LAB CRCLPHA Creatinine Clr C alc Pharmacy 58.16 Performed By: #### CBC, CMP, FE and TIBC, BRIAN #### [facility] [address] [id number] [facility] IRON AND TIBC PROFILE Collected: 05/27/2024 1:10 PM Status: F Source: [facility] TYPE CODE TESTS RESULT OUT OF RANGE REFERENCE UNITS LAB FE Iron 204 Normal 50-212 ug/dL LAB TIBCT Total Iron Binding Capacity 336 Normal 255-450 ug/dL LAB FESAT% % Iron Saturation 60.7 High 20-50 % LAB TRANS Transferrin 240 Normal 203-362 mg/dL Performed By: #### CBC, CMP, FE and TIBC, BRIAN #### [facility] [address] [id number] [facility] FERRITIN Collected: 1:10 PM Status: F Source: [facility] TYPE CODE TESTS RESULT OUT OF RANGE REFERENCE UNITS LAB BRIAN Ferritin 22.6 Low 23.9-336.2 ng/mL Result Comment: PERFORMED BY : [address] [id number] PATHOLOGIST COMMUNITY CENTER WORKER BAMBI CHONG M.D. Performed By: #### CBC, CMP, FE and TIBC, BRIAN #### [address] [id number] [facility] ASSESSMENT AND PLAN NOTE Observed: 05/23/2024 7:25 AM Status: COMPLETED Source: [facility] This report has been cancell ed. CONSULTATION NOTE Observed: 05/09/2024 3:07 PM Status: F Source: [facility] Consultation Note Patient is presenting with complaints of [...] felt the oxycodone was more beneficial than Tabiona we may consider prescribed oxycodone 5 mg [...] with any questions or concerns that arise. Result Comment: Electronical ly Signed By: Issa Gonzales DO.br\Date and Time Signed: 05/09/24 15:12 EST ASSESSMENT AND PLAN NOTE Observed: 03/28/2024 1:00 PM Status: COMPLETED Source: [facility] This report has been cancell ed. CT CHEST HIGH RESOLUTION Observed: 03/08 10:24 AM Status: F Source: [facility] Order Comment: Supine and pr one Interpreted By: Amaya Gutierrez, and Siobhan Becker STUDY: CT CHEST HIGH RESOLUTION; 03/08/2024 1:41 pm INDICATION: Signs/Symptoms:ILD post covid. COMPARISON: High-resolution chest CT dated 02/16/2023 and 05/01/2022. ACCESSION NUMBER(S): [id number] ORDERING CLINICIAN: RICH MAGANA TECHNIQUE: Using helical [...] imaging reveals no additional findings. MEDIASTINUM AND KERRY, LOWER NECK AND AXILLA: The visualized thyroid [...] reviewed the images/study with Eugenio Mccann MD (Supervisor Type Bar And Segment) and I agree with the findings as stated. Signed by: Kolby Gutierrez 03/08/2024 2:51 PM Dictation workstation: [id number] COMPLETE BLOOD COUNT AUTO DIFF Collected: 03/03/2024 2:30 PM Status: F Source: F [facility] TYPE CODE TESTS RESULT OUT OF RANGE REFERENCE UNITS LAB WBC White Blood Count 4.0 Low 4.1-10.5 10*3/uL LAB UNWBC Uncorrected WBC 4.0 Low 4.1-10.5 10*3/uL LAB RBC Red Blood Count 4.91 Normal 3.90-5.60 LAB HGB Hemoglobin 14.8 Normal 13.0-17.0 g/dL LAB HCT Hematocrit 44.2 Normal 38.8-50.0 % LAB MCV Mean Corpuscular Volume 90.1 Normal 83.5-101 fL LAB MCH Mean Corpuscular Hemoglobin 30.2 Normal 27.5-35.2 pg LAB MCHC Mean Corpuscular HGB Conc 33.5 Normal 32.5-35.6 g/dL LAB RDW Red Cell Distribution Width 14.2 Normal 12.0-14.8 % LAB PLT Platelet Count 205 Normal 150-450 10*3/uL LAB MPV Mean Platelet Volume 7.6 Normal 6.6-10.1 fL LAB NE% Neutrophils % (Auto) 88.1 . % LAB LY% Lymphocytes % (Auto) 9.9 . % LAB MO% Monocytes % (Auto) 1.5 . % LAB EO% Eosinophils % (Auto) 0.1 . % LAB BA% Basophils % (Auto) 0.4 . % LAB NRBC% NRBC% 0.1 Normal 0-0.5 /100{WBC} LAB NE# Neutrophils # (Auto) 3.5 Normal 1.8-7.7 10*3/uL LAB LY# Lymphocytes # (Auto) 0.4 Low 1.00-4.8 10*3/uL LAB MO# Monocytes # (Auto) 0.1 Normal 0.0-0.8 10*3/uL LAB EO# Eosinophils # (Auto) 0.0 Normal 0.0-0.45 10*3/uL LAB BA# Basophils # (Auto) 0.0 Normal 0.0-0.2 10*3/uL Result Comment: PERFORMED BY : [place] [address] PATHOLOGIST COMM[facility]ITY CENTER WORKER SEBASTIAN KATZ M.D. Performed By: #### CBC, CMP, FE and TIBC, BRIAN #### [facility] [address] COMPREHENSIVE METABOLIC PANEL Collected: 03/03/2024 2 :30 PM Status: F Source: [facility] TYPE CODE TESTS RESULT OUT OF RANGE REFERENCE UNITS LAB GLU Glucose 119 High 70-100 mg/dL Result Comment: Random Gluco se Reference Range is dependent on time and content of last meal. Glucose of more than 200 mg/dL in a nonstressed, ambulatory subject supports the diagnosis of Diabetes Mellitus. ADA recommended reference range LAB BUN Blood Urea Nitrogen 24 Normal 7-25 mg/d L LAB CREATT Creatinine 1.00 Normal 0.70-1.30 mg/dL LAB GFReNR Estimated GFR > 60.0 LAB NA Sodium 138 Normal 136-145 mmol/L LAB K Potassium 4.2 Normal 3.5-5.1 mmol/L LAB CL Chloride 110 High 98-107 mmol/L LAB CO2 Carbon Dioxide 23.6 Normal 21.0-31.0 mmol/L LAB GAP Anion Gap 8.6 Normal 6.0-15.0 LAB CA Calcium 8.4 Low 8.6-10.3 mg/dL LAB TP Total Protein 7.7 Normal 6.4-8.9 g/dL LAB ALB Albumin Level 3.9 Normal 3.5-5.7 g/dL LAB GLOB Globulin 3.8 g/dL LAB AGRATIO Albumin/Globulin Ratio 1.0 LAB BILIT Bilirubin,Total 0.4 Normal 0.3-1.0 mg/dL LAB AST Aspartate Amino Transferase 14 Normal 13-39 U/L LAB ALT Alanine Aminotransferase 8 Normal 7-52 U/L LAB ALP Alkaline Phosphatase 94 Normal 34-104 U/L LAB CRCLPHA Creatinine Clr C alc Pharmacy 75.61 Performed By: #### CBC, CMP, FE and TIBC, BRIAN #### [id number] [facility] IRON AND TIBC PROFILE Collected: 03/03/2024 2:30 PM Status: F Source: [facility] TYPE CODE TESTS RESULT OUT OF RANGE REFERENCE UNITS LAB FE Iron 100 Normal 50-212 ug/dL LAB TIBCT Total Iron Binding Capacity 357 Normal 255-450 ug/dL LAB FESAT% % Iron Saturation 28.0 Normal 20-50 % LAB TRANS Transferrin 255 Normal 203-362 mg/dL Performed By: #### CBC, CMP, FE and TIBC, BRIAN #### [facility] [address] [id number] [facility] FERRITIN Collected: 4 2:30 PM Status: F Source: [facility] TYPE CODE TESTS RESULT OUT OF RANGE REFERENCE UNITS LAB BRIAN Ferritin 36.1 Normal 23.9-336.2 ng/mL Result Comment: PERFORMED BY : [place] [address] PATHOLOGIST COMM[facility]ITY [facility] WORKER SEBASTIAN KATZ M.D. Performed By: #### CBC, CMP, FE and TIBC, BRIAN #### [facility] [address] [id number] [facility] CONSULTATION NOTE Observed: 01/18/2024 12:14 PM Status: F Source: [facility] Consultation Note Patient is presenting with history of [...] are helpful reducing his pain. He takes Tabiona typically but he is taking oxycodone 0.5 tablets of the 5 mg / 325 mg 3 times per day. He feels that this is reducing his pain by least 50% when taking his medications. He feels that Tabiona was slightly more helpful and would like to continue back on that medication when we are able to as there is a national shortage per his pharmacy on Tabiona medications which is the reason we switched [...] 3 times a day due to a Tabiona shortage which we are continuing him on this medication until we can resume his Tabiona medication -We can refill his Flexeril on [...] with any questions or concerns that arise. Result Comment: Electronical ly Signed By: Issa Gonzales DO\.br\Date and Time Signed: 01/18/24 12:17 EDT OPERATIVE REPORT Observed: 12/29/2023 8:55 AM Status: F Source: [facility] Operative Report Diagnosis: M54.17, lumbar radiculopathy Procedure: L5/S1 [...] the epidural space was confirmed using the clcz-bk-stxytronpo technique and 2 cc of air. Injection [...] and agrees to continue currently prescribed/recommended therapies. Result Comment: Electronical ly Signed By: Issa Gonzales DO\.br\Date and Time Signed: 12/29/23 08:56 EDT MAIN OR INTRAOPERATIVE RECORD Observed: 12/29/2023 8:53 AM Status: F Source: [facility] Main OR Intraoperative Recor d IntraOp Document Type FTPM Summary Primary Physician: Issa Gonzales DO Finalized Date/Time: 12/29/23 08:55:07 Pt. Name: BRANDON NEELY/Sex: 1960 Male Med Rec #: [id number] Physician: Issa Gonzales DO Financial #: [id number] Pt. Type: P Room/Bed: / Admit/Disch: 12/29/23 [...] Madison A Role Performed Surgeon - Primary [employer] Safety Program Coordinator Cyber Policy And Strategy Planner - Primary Time In 12/29/23 08:50:00 12/29/23 [...] Antibiotic No Time Out Fabi Edmonds RN, Roderick RN, Christian King DO, Bradford A., Daniel, Alissa [...] Procedure Yes Primary Surgeon Issa Gonzales DO 12/29/23 08:53:00 Stop 12/29/23 08:54:00 Anesthesia Type [...] and tissue Entry 1 Skin Integrity Intact, [place], Warm, & Skin Abnormality No Dry Outcomes [...] Under Knees Press Points Checked Yes By Fabi Edmonds RN Outcomes Met? Yes Last Modified By: Fabi Edmonds RN 12/29/23 08:51:12 Post-Care Text: The patient is free from signs and symptoms of injury related to positioning Transport To OR [facility] Pre-Care Text: Transports according to individual needs. Evaluates for signs and symptoms of skin and tissue injury as a result of transfer or transport Entry 1 Via Cart By Fabi Edmonds RN Safety Precautions Safety Strap, Side Outcomes Met? Yes Rails Up Last Modified By: Fabi Edmonds RN 12/29/23 08:51:16 Post-Care Text: The patient is free from signs and symptoms of injury related to transfer/transport Skin Prep FTPM Pre-Care Text: Performs skin preparations Entry 1 Procedure LUMBAR EPIDURAL STEROID Prep Area BLOCK INJECTION SITE INJECTION(.) Prep Agents Chloraprep/Dry Prior to Start Dry Time 12/29/23 08:50:00 Draping Stop Dry Time 12/29/23 08:53:00 Hair Removal Methods Not Indicated By Janki Herrera RN Outcomes Met? Yes Last Modified By: Fabi Edmonds RN 12/29/23 08:51:26 Post-Care Text: The patient is free from signs and symptoms of infection Departure From OR FT Pre-Care Text: Transports according to individual needs. Evaluates for signs and symptoms of skin and tissue injury as a result of transfer or transport. Entry 1 Via Cart Safety Precautions Safety Strap, Side Rails Up PostOp Destination PACU Transported By Fabi Edmonds RN Patient Status Stable Report Given Dina Barrera RN To/Hand Off Communication Skin. Condition Dry, Intact Airway Maintenance Oxygen in Use? No Outcomes Met? Yes Last Modified By: Fabi Edmonds RN 12/29/23 08:51:35 Post-Care Text: The patient is free from signs and symptoms of injury related to transfer/transport Dressing/Packing FTPM Pre-Care Text: Administers care to wound sites Entry 1 Type Dressing Site and Details 4x4 and opsite applied to site Outcomes Met? Yes Last Modified By: Fabi Edmonds RN 12/29/23 08:51:50 Post-Care Text: The patient is free from signs and symptoms of infection Medication Administration FTPM Pre-Care Text: Verifies allergies, administers prescribed medications and solutions, administers prescribed antibiotic therapy and immunizing agents as ordered, evaluates response to medications Administers prescribed medications and solutions Entry 1 Route of Admin Block Expiration Date Yes Verified Ordered By Issa Gonzales DO Transcribed/To Fabi Edmonds RN Field By Administered By Issa Gonzales DO Outcomes Met? Yes Last Modified By: Fabi Edmonds RN 12/29/23 08:51:55 Post-Care Text: The patient received appropriate medication(s) safely administered during the perioperative period X-Rays & Images FTPM Pre-Care Text: Assess history of previous radiation exposure and implements protective measures Entry 1 X-Ray Type C-Arm Contrast Used? Yes Outcomes Met? Yes Last Modified By: Fabi Edmonds RN 12/29/23 08:52:03 Post-Care Text: The patient is free from signs and symptoms of radiation injury Case Comments <None> Finalized By: Fabi Edmonds RN Document Signatures Signed By: Fabi Edmonds RN 12/29/23 08:55 MAIN OR PREOPERATIVE RECORD Observed: 8:45 AM Status: F Source: [facility] Main OR Preoperative Record Holding Area Document Type FTPM Summary Primary Physician: Issa Gonzales DO Finalized Date/Time: 12/29/23 07:45:28 Pt. Name: FLORINDABRANDON/Sex: 1960 Male Med Rec #: [id number] Physician: Issa Gonzales DO Financial #: [id number] Pt. Type: P Room/Bed: / Admit/Disch: 12/29/23 07:38:46 - Institution: Case Times Holding FTPM Pre-Care Text: Verifies consent for planned procedure, identifies individual values and wishes concerning care, includes family members in perioperative teaching Secures patient's records' belongings, and valuables, maintains patient's dignity and privacy, and maintains patient confidentiality Entry 1 In Holding 12/29/23 07:42:00 Outcomes Met? Yes Last Modified By: Matthew Saeed RN 12/29/23 07:42:03 Post-Care Text: The [...] No Patient states Yes Comment - Adult Heather friend postop adult Supervision supervision available Case Cancelled in No Holding Area see comments below for reason Last Modified By: Matthew Saeed RN 12/29/23 07:45:26 Finalized By: Matthew Saeed RN Document Signatures Signed By: Matthew Saeed RN 12/29/23 07:45 WOOL SUPPLIER DRUG SCREEN-LC Collected: 11:15 AM Status: F Source: [facility] TYPE CODE TESTS RESULT OUT OF RANGE REFERENCE UNITS LAB [id number]([facility]) Test Name toxassure 23 Unknown Performed By: #### [id number] #### [facility] [address] [place] [address] CONSULTATION NOTE Observed: 12/04/2023 11:04 AM Status: F Source: [facility] Consultation Note Patient: BRANDON NEELY Age: 63 years Sex: Male : 1960 [...] He had pneumonia and he had some other issues. He has had weight issues. He states that his liver is being looked at and he has some testing that has been being ordered. At this time he has entire spinal axis pain as well as right greater than left radiating leg pain. He also has headaches. The headaches are treated by neurology. He gets Botox with them. He states that the leg pain was much better after the epidural and he wonders about having this done again. He uses Flexeril 10 mg at bedtime as needed for pain, Tabiona 5/325 1 p.o. 3 times daily as [...] BID, # 180 cap(s), Refills(s) 0, Pharmacy: [facility]/pharmacy #[id number], 175, cm, 12/04/23 10:56:00 EDT, Height/Length Dosing, 74, kg, 12/04/23 10:56:00 EDT, Weight Dosing Tabiona 325 mg-5 mg oral tablet: 1 tab(s), Oral, TID as needed for pain, 90 tab(s), Refill(s) 0, [facility]/pharmacy #[id number], 175, cm, 12/04/23 10:56:00 EDT, Height/Length Dosing, 74, kg, 12/04/23 10:56:00 EDT, Weight Dosing cyclobenzaprine 10 mg Tab: 10 mg = 1 tab(s), Oral, Bedtime, PRN for spasm, # 90 tab(s), Refills(s) 0, Pharmacy: [facility]/pharmacy #[id number], 175, cm, 12/04/23 10:56:00 EDT, Height/Length [...] Refills(s) 0 SUMAtriptan 6 mg/0.5 mL SubQ Isabel: PRN Migraine headache, Refills(s) 0 Tezspire: Refills(s) [...] capsule: Refills(s) 0 fluticasone Nasal 0.05 mg/inh [place]: Refill(s) 0 ketorolac 10 mg Tab: Refills(s) [...] 0 verapamil 120 mg oral tablet: Oral, Daily, Refills(s) 0 Problem list: All Problems Hyperlipemia / SNOMED CT 57518361 / Confirmed Hypertension / SNOMED CT 0022493873 / Confirmed Anxiety / SNOMED CT 05586801 / Confirmed Vertigo / SNOMED CT 7053233500 / Confirmed Sleep apnea / SNOMED CT 175570933 / Confirmed Family history of prostate cancer / SNOMED CT 8603152886 / Confirmed Incomplete emptying of bladder / SNOMED CT 352123669 / Confirmed 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 Decreased libido / SNOMED CT 889357891 / Confirmed Rising PSA level / SNOMED CT 0573136186 / Confirmed Recurrent UTI / SNOMED CT 571908595 / Confirmed Resolved: H/O: TIA / SNOMED CT 503247566 Resolved: Asthma / SNOMED CT 273834262 Resolved: COPD (chronic obstructive pulmonary disease) / SNOMED CT [id number] Resolved: Low testosterone in male / SNOMED CT 968018142 Resolved: Hypogonadism male / SNOMED CT 13235150 Resolved: Prostate cancer screening / SNOMED CT 835553536 Objective Vital Signs 12/04/2023 10:29 EDT Peripheral Pulse Rate 102 bpm HI Respiratory Rate 14 br/min Systolic Blood Pressure 110 mmHg Diastolic Blood Pressure 76 mmHg Mean Arterial Pressure, Cuff 87 mmHg General: Alert and oriented, No acute distress. Eye: Normal conjunctiva. HENT: Normocephalic, Normal hearing. Cardiovascular: No edema. Musculoskeletal Normal range of motion. Normal strength. 5/5 lower extremity strength other than bilateral hip flexion, ADF and EHL 4+/5 Ambulating with a cane Integumentary: Warm, Dry, [place]. Neurologic: Alert, Oriented. Psychiatric: Cooperative, Appropriate mood & affect. 14 point review of systems was negative unless otherwise noted. Impression and Plan Patient is a 63-year-old [...] mg at bedtime as needed for pain, Tabiona 5/325 1 p.o. 3 times daily as needed pain and Lyrica 100 mg twice daily. OARRS reviewed. Refill sent. Narcan offered and declined. We will obtain an updated UDS today for compliance purposes. Follow-up as above-mentioned. VERONICA score: 51%. Result Comment: Electronical ly Signed By: Domi TEIXEIRA, Barbara\.br\Date and Time Signed: 12/04/23 11:07 EDT COMPREHENSIVE METABOLIC 2000 PANEL Collected: 11/30/2023 4:05 PM Status: F Source: U [facility] TYPE CODE TESTS RESULT OUT OF RANGE REFERENCE UNITS LAB 2345-7(LOINC) Glucose 100 High 74-99 mg/dL LAB 2951-2(LOINC) Sodium 135 Low 136-145 mmol/L LAB 2823-3(LOINC) Potassium 4.1 3.5-5.3 mmol/L LAB 2075-0(LOINC) Chloride 105 98-107 mmol/L LAB 2027-9(LOINC) Carbon dioxide 21 21-32 mmo l/L LAB 46570-0(LOINC ) Anion gap 13 10-20 mmol/L LAB 3094-0(LOINC) Urea nitrogen 29 High 6-23 mg/d L LAB 2160-0(LOINC) Creatinine 0.93 0.50-1.30 mg/dL LAB 76871-5(LOINC ) Glomerular filtration rate/1.73 sq M.predicted >90 >60 mL/min/ 1.73m*2 Result Comment: Calculations of estimated GFR are performed using the 2020 CKD- EPI Study Refit equation without the race variable for the IDMS-Traceable creatinine methods. https://jasn.asnjournals.org/content//ASN.4094022429 LAB 40580-3(LOINC ) Calcium 9.8 8.6-10.6 mg/dL LAB 69086-9(LOINC ) Albumin 4.7 3.4-5.0 g/dL LAB 6768-6(LOINC) Alkaline phosphatase 115 33-136 U/L LAB 2885-2(LOINC) Protein 8.0 6.4-8.2 g/dL LAB 66357-4(LOINC ) Aspartate aminotransferase 16 9-39 U/L LAB 1975-2(LOINC) Bilirubin 0.8 0.0-1.2 mg/dL LAB 1743-4(LOINC) Alanine aminotransferase 13 10-52 U/L Result Comment: Patients molly ated with Sulfasalazine may generate falsely decreased results for ALT. Performed By: #### [id number] # ### CRISTIN Gutierrez ([id number]) [facility] ([facility]) [address] [place] [address] US VENOUS DUPLEX LE BI Observed: 024 4:11 PM Status: COMPLETED Source: [facility] EN[facility] [place] [address] Ultrasound Report Signed Patient: Brandon Neely MR#: [id number] [birth year] : 1960 Acct:[id number] Age/Sex: 63 / M ADM Date: 11/24/23 Loc: Room: Type: [facility] Attending Dr: Jessica RUBI Ordering Provider: SKY Romero Date of Service: [...] Jayant Davis M.D.11/25/2023 4:12 PM Dictation Location: [facility]-04 Tech: Joie Franklin Transcribed By: MEI 11/25/231611 Dictated By: Jayant Davis MD 11/25/231610 Signed By: <Electronically signed by MD Jayant Davis in OV> 11/25/231611 COMPLETE BLOOD COUNT AUTO DIFF Collected: 11/24/2023 4:03 PM Status: F Source: F [facility] TYPE CODE TESTS RESULT OUT OF RANGE REFERENCE UNITS LAB WBC White Blood Count 5.0 Normal 4.1-10.5 10*3/uL LAB UNWBC Uncorrected WBC 5.0 Normal 4.1-10.5 10*3/uL LAB RBC Red Blood Count 4.81 Normal 3.90-5.60 LAB HGB Hemoglobin 14.7 Normal 13.0-17.0 g/dL LAB HCT Hematocrit 43.9 Normal 38.8-50.0 % LAB MCV Mean Corpuscular Volume 91.1 Normal 83.5-101 fL LAB MCH Mean Corpuscular Hemoglobin 30.6 Normal 27.5-35.2 pg LAB MCHC Mean Corpuscular HGB Conc 33.5 Normal 32.5-35.6 g/dL LAB RDW Red Cell Distribution Width 14.1 Normal 12.0-14.8 % LAB PLT Platelet Count 183 Normal 150-450 10*3/uL LAB MPV Mean Platelet Volume 8.0 Normal 6.6-10.1 fL LAB NE% Neutrophils % (Auto) 59.8 . % LAB LY% Lymphocytes % (Auto) 32.1 . % LAB MO% Monocytes % (Auto) 7.1 . % LAB EO% Eosinophils % (Auto) 0.3 . % LAB BA% Basophils % (Auto) 0.7 . % LAB NRBC% NRBC% 0.2 Normal 0-0.5 /100{WBC} LAB NE# Neutrophils # (Auto) 3.0 Normal 1.8-7.7 10*3/uL LAB LY# Lymphocytes # (Auto) 1.6 Normal 1.00-4.8 10*3/uL LAB MO# Monocytes # (Auto) 0.4 Normal 0.0-0.8 10*3/uL LAB EO# Eosinophils # (Auto) 0.0 Normal 0.0-0.45 10*3/uL LAB BA# Basophils # (Auto) 0.0 Normal 0.0-0.2 10*3/uL Result Comment: PERFORMED BY : [facility] [address] PATHOLOGIST COMMUNITY CENTER WORKER SEBASTIAN KATZ M.D. Performed By: #### CBC, FE a nd TIBC, BRIAN #### [facility] [address] [place] [id number] [facility] IRON AND TIBC PROFILE Collected: 11/24/2023 4:03 PM Status: F Source: [facility] TYPE CODE TESTS RESULT OUT OF RANGE REFERENCE UNITS LAB FE Iron 80 Normal 50-212 ug/dL LAB TIBCT Total Iron Binding Capacity 302 Normal 255-450 ug/dL LAB FESAT% % Iron Saturation 26.5 Normal 20-50 % LAB TRANS Transferrin 216 Normal 203-362 mg/dL Performed By: #### CBC, FE a nd TIBC, BRIAN #### [facility] [address] [place], [place] [address] [facility] FERRITIN Collected: 4:03 PM Status: F Source: [facility] TYPE CODE TESTS RESULT OUT OF RANGE REFERENCE UNITS LAB BRIAN Ferritin 71.0 Normal 23.9-336.2 ng/mL Result Comment: PERFORMED BY : [place] [address] PATHOLOGIST COMMUNITY CENTER WORKER SEBASTIAN KATZ M.D. Performed By: #### CBC, FE a nd TIBC, BRIAN #### [place] [id number] [facility] XR ANKLE LT MIN 3V* Observed: 11/24/2023 3:37 PM Status: COMPLETED Source: [facility] [address] [place] [id number] XRay Report Signed Patient: Brandon Neely MR#: [id number] 67 : 1960 Acct:[id number] Age/Sex: 63 / M ADM Date: 11/24/23 Loc: [facility] Room: Type: [facility] Attending Dr: Jessica Rodriguez DEFECTIVE CIGARETTE SLITTER-C Copies to: SKY Romero Ordering Provider: SKY [...] MORTISE WITH PLANTAR SPURRING. Impression dictated by: Marina Crews Jr.OSindi11/24/2023 3:37 PM Dictation Location: [place] [address] Transcribed By: [facility] 11/24/23 1537 Dictated By: Dustin Last Jr, DO 11/24/23 1537 Signed By: <Electronically signed by Dustin Last Jr, DO in OV> 11/24/23 1537 LABORATORY OUTSIDE OFFICE COPY Observed: 06/11/2023 8:34 AM Status: F Source: [facility] [id number]#1.00TIFF INSURANCE CORRESPONDENCE OFFICE Observed: 06/09/2023 9:08 AM Status: C Source: [facility] [id number]#2.00TIFF ALLERGIES DATE TYPE / CODE NAME / CODE REACTION SEVERITY SOURCE 07/07/2024 Drug Allergy/687600202( SNOMED CT) iodine/Q393076066( RXNORM) Hives Unknown [facility] 07/07/2024 Drug Allergy/056457996( SNOMED CT) monosodium glutamate/A2869010 14(RXNORM) Hives Unknown [facility] 07/07/2024 Drug Allergy/577307222( SNOMED CT) diazepam/J11153864 1(RXNORM) Unknown Reaction, depression Unknown [facility] 07/07/2024 Drug Allergy/772511539( SNOMED CT) penicillin G benzathine/E871118 683(RXNORM) Hives Unknown [facility] 07/07/2024 Drug Allergy/524783953( SNOMED CT) penicillin V/G125630396(RXNOR M) Rash Unknown [facility] 07/07/2024 Drug Allergy/810531836( SNOMED CT) diltiazem/R1275053 14(RXNORM) Unknown Reaction Unknown [facility] 07/07/2024 Drug Allergy/324281464( SNOMED CT) candesartan/Y83083 7275(RXNORM) Unknown Reaction Unknown [facility] 07/07/2024 Drug Allergy/085318137( SNOMED CT) cefdinir/W04959258 8(RXNORM) Unknown Reaction Unknown [facility] 07/07/2024 Drug Allergy/086173624( SNOMED CT) chocolate flavor/M048213058( RXNORM) Headache Unknown [facility] 07/07/2024 Drug Allergy/848027276( SNOMED CT) avocado/R735419827 (RXNORM) swelling Unknown [facility] 07/07/2024 Drug Allergy/801441209( SNOMED CT) grass pollen/H204637302( RXNORM) Unknown Reaction Unknown [facility] 05/11/2024 DRUG INGREDI~Food/71456 1000(SNOMED CT) ASPARTAME Headache [facility] 09/04/2023 DRUG INGREDI/848475080( SNOMED CT) CANDESARTAN Other [facility] 09/04/2023 DRUG INGREDI/120402213( SNOMED CT) CEFDINIR Other [facility] 09/04/2023 DRUG INGREDI/254185247( SNOMED CT) DILTIAZEM Other [facility] 06/22/2023 DRUG INGREDI/453834084( SNOMED CT) IODINE Hives~[facility] 06/02/2023 DRUG INGREDI~Food/72426 1000(SNOMED CT) CHOCOLATE FLAVOR Headache [facility] 03/24/2023 DRUG INGREDI~Environ/41 0084131(SNOMED CT) GRASS POLLEN Cough~Dermatiti s~Runny nose~Sob~[facility] 03/24/2023 DRUG INGREDI~Food/31853 1000(SNOMED CT) MONOSODIUM GLUTAMATE Headache~Hives~ [facility] 01/02/2023 DRUG INGREDI~Food/20787 1000(SNOMED CT) COCOA Headache [facility] 01/02/2023 Miscellaneous Allergy/284183952( SNOMED CT) OTHER Unknown [facility] 01/02/2023 DRUG INGREDI/726881717( SNOMED CT) PINE OIL Unknown [facility] 02/16/2019 DRUG INGREDI/881654684( SNOMED CT) [facility]LOFEN [facility] 02/16/2019 DRUG INGREDI/262323259( SNOMED CT) CIPROFLOXACIN [facility] 02/16/2019 DRUG INGREDI/090911870( SNOMED CT) INDOMETHACIN [facility] 02/16/2019 Drug Class/028459269(SN OMED CT) PENICILLINS [facility] 02/16/2019 DRUG INGREDI/784705579( SNOMED CT) PROPRANOLOL [facility] 02/16/2019 Drug Class/694656049(SN OMED CT) SULFA (SULFONAMIDE ANTIBIOTICS) [facility] 10/27/2018 DRUG INGREDI/490609996( SNOMED CT) PROPRANOLOL Rash~Syncope [facility] 09/27/2017 DRUG INGREDI/084124553( SNOMED CT) DIAZEPAM Other~Unknown [facility] 09/27/2017 Drug Class/419969540(SN OMED CT) SULFA (SULFONAMIDE ANTIBIOTICS) Other~Rash [facility] 01/17/2017 DRUG INGREDI/224927370( SNOMED CT) BACLOFEN Unknown~Myalgia [facility] 01/17/2017 DRUG INGREDI/488826270( SNOMED CT) CIPROFLOXACIN Rash~Swelling [facility] 01/17/2017 DRUG INGREDI/534980643( SNOMED CT) INDOMETHACIN Rash~Unknown~Hi ves [facility] 01/17/2017 Drug Class/956263681(SN OMED CT) PENICILLINS Rash~Unknown~Hi ves [facility] 02/25/1980 DRUG INGREDI~Food/18150 1000(SNOMED CT) AVOCADO Respiratory~Sob ~[facility] /316172249(SNOME D CT) Aspartame 66181852 [facility] /816462231(SNOME D CT) MSG (monosodium glutamate) 38076226 [facility] /145483881(SNOME D CT) ciprofloxacin 638157530 [facility] /828686604(SNOME D CT) propranolol 41198 [facility] /137594699(SNOME D CT) baclofen 09723886 [facility] ELISABETH194562464(SNOME D CT) penicillins 330870752 [facility] ELISABETH435019056(SNOME D CT) sulfa drugs 607072431 [facility] ELISABETH006834606(SNOME D CT) iodine 327929321 [facility] ELISABETH430801848(SNOME D CT) Indocin 010383288~99673 7015 [facility] ENCOUNTERS ADMIT/DISCHARGE ACCOUNT NUMBER ADMITTING ENCOUNTER CLASS LOCATION SOURCE 11/07/2024/11/08/19 [id number] Ambulatory Building:[facility] [id number] [facility] 11/01/2024/11/02/19 [id number] [place] 10/06/2024/10/07/19 [id number] [place] 10/05/2024 [id number] Ambulatory Building:Un kn own [facility] 10/05/2024 [id number] Ambulatory Building:Un own [facility] 10/05/2024 [id number] Ambulatory Building:Un own [facility] 10/05/2024 [id number] Ambulatory Building:Un own [facility] 10/05/2024 [id number] Ambulatory Building:Un own [facility] 10/05/2024 [id number] Ambulatory Building:Un own [facility] 10/02/2024/10/08/19 25 [id number] Emergency Buildin 1Room: TELESTROKEBed : TELESTROKE BED [facility] 10/02/2024/10/03/19 [id number] Brandon Zarate [facility] 09/20/2024/09/21/19 [id number] [place] 09/14/2024 [id number] JESSICA PAYTON Ambulatory [facility]Building: FT LAB [facility] 09/14/2024/05/14 [id number] JESSICA PAYTON Ambulatory [facility]Building: FT LAB [facility] 09/14/2024/09/15/19 [id number] [place] [facility] 09/13/2024/09/14/19 [id number] Ambulatory Building:[address] Ambulatory 09/13/2024 [id number] Melissa Wilson [facility] 09/12/2024/09/13/19 [id number] Ambulatory Building:[address] Ambulatory 08/17/2024/08/18/19 [id number] Ambulatory Building:[address] 08/10/2024/08/11/19 [id number] Ambulatory Building:[address] 07/25/2024/07/26/19 [id number] Ambulatory Building:[address] 07/06/2024/07/07/19 [id number] Ambulatory Building:[address] 07/06/2024/07/07/19 [id number] Issa Gonzales Ambulatory FTMCBuilding: FT PMCRoom: [address] 06/14/2024/06/14/19 [id number] Ambulatory Building:[address] 06/09/2024/06/09/19 [id number] Ambulatory FTMCBuilding: FT OPS [facility] 06/02/2024/06/02/19 [id number] Ambulatory Building:[address] Ambulatory 05/11/2024/05/11/19 [id number] Ambulatory Building:[address] Ambulatory 05/09/2024/05/09/19 [id number] Issa Gonzales Ambulatory FTMCBuilding: FT PMCRoom: [facility] 04/13/2024/04/13/20 24 [id number] Ambulatory Building:[address] 04/07/2024/04/07/20 24 [id number] Ambulatory Building:[address] Ambulatory 03/08/2024/03/08/20 24 [id number] Ambulatory Building:[facility] [id number] [facility] 03/08/2024/03/08/20 24 [id number] Ambulatory Building:[address] Ambulatory 02/16/2024/02/16/20 24 [id number] Ambulatory Building:[address] Ambulatory 01/18/2024/01/18/20 24 [id number] Issa Gonzales Ambulatory FTMCBuilding: FT PMCRoom: [address] 01/11/2024/01/11/20 24 [id number] Ambulatory Building:[address] Ambulatory 12/29/2023/12/29/19 24 [id number] Issa Gonzales Ambulatory FTMCBuilding: FT OPS [facility] 12/07/2023/12/07/19 24 [id number] Ambulatory Building:[address] Ambulatory 12/07/2023/12/07/19 24 [id number] Ambulatory Building:[address] 12/04/2023 [id number] Barbara Duron Ambulatory FTMCBuilding: FT LAB [facility] 12/04/2023/12/04/19 24 [id number] Barbara Duron Ambulatory FTMCBuilding: FT LAB [facility] 12/04/2023/12/04/19 24 [id number] Barbara Duron Ambulatory FTMCBuilding: FT PMCRoom: [facility] 11/30/2023/11/30/19 24 [id number] Ambulatory Building:[address] Ambulatory 11/24/2023/11/24/19 24 [id number] Jessica Rodriguez [facility] 11/24/2023/11/24/19 24 [id number] Jessica Rodriguez [facility]SOX[facility] 04/14/2022 [id number] Ambulatory LEONA QuintanaBuild ing:EU [facility] PAYERS ENCOUNTER GUARANTOR PAYER SUBSCRIBER SOURCE 11/07/2024 BRANDON SAVEDGEDOB: [place] [address]Aob: (HP) Primary Insurance:ANTHEM MEDICAREPolicy Number: [id number] Date:2022-07-02 BRANDON SAVEDGEDOB: [id number] [place] [address]Wcp: (HP) [facility] 11/01/2024 BRANDON Valdivia SAVEDGEDOB: MELISSA Lindol: ~~(4 1 (HP) Primary Insurance:AnthemPolicy Number: [id number] Date:0762-43-95SV [address] [place] [address]XD: [facility]ON [facility] 10/06/2024 BRANDON Valdivia SAVEDGEDOB: MELISSA Lindol: ~~(4 1 (HP) Primary Insurance:AnthemPolicy Number: [id number] Date:2162-67-91NY [address] [place] [address]UE: [facility]ON [facility]div[facility] 10/05/2024 BRANDON Valdivia SAVEDGEDOB: [place], [place] [address]Pyz: (HP) Primary Insurance:[facility]Policy Number: [id number] Date:2018-08-022024-10-01 BRANDON Valdivia SAVEDGEDOB: [id number] [place] [address] [facility] 10/05/2024 BRANDON Valdivia SAVEDGEDOB: [place], [place] [address]Cpd: (HP) Primary Insurance:BRADY [facility] Number: [id number] Date:2018-08-022024-10-01 BRANDON Valdivia SAVEDGEDOB: [id number], [place] [address] [facility] 10/05/2024 BRANDON Valdivia SAVEDGEDOB: [place], [place] [address]Vyl: (HP) Primary Insurance:BRADY [facility] Number: [id number] Date:2018-08-022024-10-01 BRANDON Valdivia SAVEDGEDOB: [id number], [place] [address] [facility] 10/05/2024 BRANDON Valdivia SAVEDGEDOB: [place], [place] [address]Vnz: (HP) Primary Insurance:BRADY [facility] Number: [id number] Date:2018-08-022024-10-01 BRANDON Valdivia SAVEDGEDOB: [id number], [place] [address] [facility] 10/05/2024 BRANDON Valdivia SAVEDGEDOB: [place], [place] [address]Kqw: (HP) Primary Insurance:BRADY [facility] Number: [id number] Date:2018-08-022024-10-01 BRANDON Valdivia SAVEDGEDOB: [id number], [place] [address] [facility] 10/05/2024 BRANDON Valdivia SAVEDGEDOB: [place], [place] [address]Uex: (HP) Primary Insurance:BRADY [facility] Number: [id number] Date:2018-08-022024-10-01 BRANDON Valdivia SAVEDGEDOB: [id number], [place] [address] [facility] 10/02/2024 BRANDON Valdivia SAVEDGEDOB: [place], [place] [address]Kis: (HP) Primary Insurance:BRADY [facility]Policy Number: [id number] Date:2018-08-022024-10-01 BRANDON Valdivia SAVEDGEDOB: [id number] [place] [address] [facility] 10/02/2024 Brandon Valdivia [address] [place] [address]Yde: (HP) Primary Insurance:Self PayPolicy Number: Effective Date:2024-10-02 [facility] 09/20/2024 BRANDON Valdivia SAVEDGEDOB: MELISSA AVETel: ~~(4 1 (HP) Primary Insurance:AnthemPolicy Number: [id number] Date:7466-91-31NG [address] [place] [address]SU: BRANDON Valdivia [facility] 09/14/2024 BRANDON Valdivia SAVEDGEDOB: MELISSA AVETel: ~~(4 1 (HP) Primary Insurance:AnthemPolicy Number: [id number] Date:9289-81-61AM [address] [place] [address]PB: BRANDON Valdivia [facility] 09/14/2024 BRANDON Valdivia SAVEDGEDOB: MELISSA AVETel: ~~(4 1 (HP) Primary Insurance:AnthemPolicy Number: [id number] Date:9490-33-82BR [address] [place] [address]VZ: BRANDON Valdivia [facility] 09/13/2024 BRANDON SAVEDGEDOB: [place] [address]Psl: () Primary Insurance:SUSIE MEDICAREPolicy Number: [id number] Date:2022-07-02 BRANDON SAVEDGEDOB: [id number] [place] [address]Ojl: () [facility] 09/13/2024 Brandon Valdivia Rh[address]wa004 Melissa Cheng [facility]Bzp: (HP) Primary Insurance:[place] SHARON PFFSPolicy Number: [id number] Date:2022-01-02 Brandon Valdivia SavedgeDOB: [id number] Melissa Cheng [facility]Dzh: () [facility] 09/13/2024 Secondary Insurance:Self PayPolicy Number: Effective Date:2022-01-02 [facility]EN[facility] 09/12/2024 BRANDON SAVEDGEDOB: MELISSA CHENG [facility]Svl: () Primary Insurance:SUSIE MEDICAREPolicy Number: [id number] Date:2022-07-02 BRANDON SAVEDGEDOB: [id number] [address] [facility]Lrh: () [facility] 08/17/2024 BRANDON SAVEDGEDOB: MELISSA CHENG [facility]Wkc: () Primary Insurance:SUSIE MEDICAREPolicy Number: [id number] Date:2022-07-02 BRANDON SAVEDGEDOB: [id number] [place] [address]Hjw: () [facility] 08/10/2024 BRANDON SAVEDGEDOB: MELISSA CHENG [facility]Ujs: (HP) Primary Insurance:SUSIE MEDICAREPolicy Number: [id number] Date:2022-07-02 BRANDON SAVEDGEDOB: [id number] [place] [address]Asu: () [facility] 07/25/2024 BRANDON SAVEDGEDOB: [place] [address]Yrk: (HP) Primary Insurance:ANTHEM MEDICAREPolicy Number: [id number] Date:2022-07-02 BRANDON SAVEDGEDOB: [id number] [address] [place] [id number]: () [facility] 07/06/2024 BRANDON SAVEDGEDOB: [place]ENKENIAKER[place] [address]Gtm: (HP) Primary Insurance:ANTH[place] MEDICAREPolicy Number: [id number] Date:2022-07-02 BRANDON SAVEDGEDOB: [id number] [address] [place] [id number]: (HP) [facility] 07/06/2024 BRANDON SAVEDGEDOB: MELISSA URENAWexner Medical Centerl: ~~(4 1 () Primary Insurance:AnthemPolicy Number: [id number] Date:6816-14-57KS [address], [place] [address]BF: [facility]RIRIPaulding [facility] 06/14/2024 BRANDON SAVEDGEDOB: [place] [address]Wku: () Primary Insurance:SAÚLASHLEY MEDICAREPolicy Number: [id number] Date:2022-07-02 BRANDON SAVEDGEDOB: [id number] [place] [address]Wqh: (HP) [facility] 06/09/2024 BRANDON SAVEDGEDOB: MELISSA URENAETel: ~~(4 1 (HP) Primary Insurance:AnthemPolicy Number: [id number] Date:[id number] [address] [place] [address]UH: [facility]GEPaulding [facility] 06/[facility]/2024 BRANDON SAVEDGEDOB: [place] [address]Bpl: (HP) Primary Insurance:ANTHEM MEDICAREPolicy Number: [id number] Date:2022-07-02 BRANDON SAVEDGEDOB: [id number] [place] [address]Njf: () [facility] 05/11/2024 BRANDON SAVEDGEDOB: [place] [address]Yhz: (HP) Primary Insurance:ANTHEM MEDICAREPolicy Number: [id number] Date:2022-07-02 BRANDON SAVEDGEDOB: [id number] [place] [address]Npq: (HP) [facility] 05/09/2024 BRANDON SAVEDGEDOB: MELISSA Lindol: ~~(4 1 (HP) Primary Insurance:AnthemPolicy Number: [id number] Date:0869-78-80OQ [address] [place] [address]EX: [facility] BRANDON SAVEDGEDOB: [place] [address]Ohy: (HP) Primary Insurance:ANTHEM MEDICAREPolicy Number: [id number] Date:2022-07-02 BRANDON SAVEDGEDOB: [id number] [place] [address]Yya: (HP) [facility] 04/07/2024 BRANDON SAVEDGEDOB: [place] [address]Rfg: () Primary Insurance:ANTHEM MEDICAREPolicy Number: [id number] Date:2022-07-02 BRANDON SAVEDGEDOB: [id number] [place] [address]Fuh: () [facility] 03/08/2024 BRANDON SAVEDGEDOB: [place] [address]Kiq: () Primary Insurance:ANTHEM MEDICAREPolicy Number: [id number] Date:2022-07-02 BRANDON SAVEDGEDOB: [id number] [place] [address]Wki: (HP) [facility] 03/08/2024 BRANDON SAVEDGEDOB: [place] [address]Jam: () Primary Insurance:ANTHEM MEDICAREPolicy Number: [id number] Date:2022-07-02 BRANDON SAVEDGEDOB: [id number] [place] [address]Owo: () [facility] 02/16/2024 BRANDON SAVEDGEDOB: [place] [address]Ogb: () Primary Insurance:ANTHEM MEDICAREPolicy Number: [id number] Date:2022-07-02 BRANDON SAVEDGEDOB: [id number] [place] [address]Ycm: (HP) [facility] 01/18/2024 BRANDON SAVEDGEDOB: MELISSA AVETel: ~~(4 1 (HP) Primary Insurance:AnthemPolicy Number: [id number] Date:6962-95-46FY [address] [place] [address]XK: [facility] BRANDON SAVEDGEDOB: [place] [address]Dkv: (HP) Primary Insurance:ANTHEM MEDICAREPolicy Number: [id number] Date:2022-07-02 BRANDON SAVEDGEDOB: [id number] [place] [address]Tfu: (HP) [facility] 12/29/2023 BRANDON SAVEDGEDOB: MELISSA URENAETel: ~~(4 1 (HP) Primary Insurance:AnthemPolicy Number: [id number] Date:4567-85-17WP [address] [place] [address]HQ: [facility]/07/2023 BRANDON SAVEDGEDOB: [place] [address]Bqk: (HP) Primary Insurance:ANTHEM MEDICAREPolicy Number: [id number] Date:2022-07-02 BRANDON SAVEDGEDOB: [id number] [place] [address]Kiz: (HP) [facility] 12/07/2023 BRANDON SAVEDGEDOB: [place] [address]Isx: (HP) Primary Insurance:ANTHEM MEDICAREPolicy Number: [id number] Date:2022-07-02 BRANDON SAVEDGEDOB: [id number] [place] [address]Qod: () [facility] 12/04/2023 BRANDON SAVEDGEDOB: MELISSA AVETel: ~~(4 1 (HP) Primary Insurance:AnthemPolicy Number: [id number] Date:9060-65-30RI [address] [address]QD: [facility]/2023 BRANDON SAVEDGEDOB: MELISSA URENAETel: ~~(4 1 (HP) Primary Insurance:AnthemPolicy Number: [id number] Date:8733-66-06TK [address] [place] [address]PP: [facility] 11/30/2023 BRANDON SAVEDGEDOB: [place] [address]Hsw: () Primary Insurance:SUSIE MEDICAREPolicy Number: [id number] Date:2022-07-02 BRANDON SAVEDGEDOB: [id number] [place] [address]Ybo: () [facility] 11/24/2023 Brandon [place]ia [id number] [place] [address]Uee: () Primary Insurance:Susie HERRERA PFFSPolicy Number: [id number] Date:2023-11-24 Brandon Valdivia SavedgeDOB: [id number] [place] [address]Kqi: () [facility] 11/24/2023 Secondary Insurance:Self PayPolicy Number: Effective Date:2023-11-24 NOT GIVENUNK [facility] 11/24/2023 Brandon Valdivia [id number] [place] [id number]: () Primary Insurance:[place] MCR PFFSPolicy Number: [id number] Date:2023-11-24 Brandon Valdivia SavedgeDOB: [id number] [place] [address]Nss: () [facility] 11/24/2023 Secondary Insurance:Self PayPolicy Number: Effective Date:2023-11-24 NOT GIVENUNK [facility] 04/14/2022 BRANDON SAVEDGEDOB: HAIGLER STTel: () Primary Insurance:AnthemPolicy Number: [id number] Date:1571-84-31WO JEREMI [address], [place] [address]NA: BRANDON SAVEDGEUNK [facility]
--- OUTSIDE RECORDS SUMMARY | 2024-11-07 11:15 | XMS_ITS ---
Author Name Auto Generated Organization OHIP Support Name Relationship Address Phone NONE Next of Kin Unknown Unavailable FLORINDASHILPI Next of Kin [address] [place] [address] + Shilpi Neely Next of Kin Unknown [phone] NONE Next of Kin Unknown Unavailable FLORINDASHILPI Next of Kin [address] [place] [address] + Debi Barksdale Next of Kin Unknown [phone] SariShilpi pearce Next of Kin Unknown [phone] NONE Next of Kin Unknown Unavailable FLORINDA SHILPI Next of Kin [address] [place] [address] + NONE Next of Kin Unknown Unavailable FLORINDA SHILPI Next of Kin [address] [place] [address] + NONE Next of Kin Unknown Unavailable FLORINDA SHILPI Next of Kin [address] [place] [address] + NONE Next of Kin Unknown Unavailable FLORINDASHILPI Next of Kin [address] [place] [address] + NONE Next of Kin Unknown Unavailable FLORINDASHILPI Next of Kin [address] [place] [address] + NONE Next of Kin Unknown Unavailable FLORINDA SHILPI Next of Kin [address] [place] [address] + NONE Next of Kin Unknown Unavailable FLORINDA SHILPI Next of Kin [address] [place] [address] + NONE Next of Kin Unknown Unavailable SAVEDSHILPI PEARCE Next of Kin [address] [place] [address] + NONE Next of Kin Unknown Unavailable SAVEDSHILPI PEARCE Next of Kin [address] [place] [address] + NONE Next of Kin Unknown Unavailable SAVEDSHILPI PEARCE Next of Kin [address] [place] [address] + NONE Next of Kin Unknown Unavailable SAVEDSHILPI PEARCE Next of Kin [address] [place] [address] + NONE Next of Kin Unknown Unavailable SAVEDSHILPI PEARCE Next of Kin [address] [place] [address] + NONE Next of Kin Unknown Unavailable SAVEDSHILPI PEARCE Next of Kin [address] [place] [address] + NONE Next of Kin Unknown Unavailable SAVEDSHILPI PEARCE Next of Kin [address] [place] [address] + NONE Next of Kin Unknown Unavailable SAVEDSHILPI PEARCE Next of Kin [address] [place] [address] + NONE Next of Kin Unknown Unavailable SAVEDSHILPI PEARCE Next of Kin [address] [place] [address] + NONE Next of Kin Unknown Unavailable SHILPI NEELY Next of Kin [address] [place] [address] + Shilpi Neely Next of Kin Unknown [phone] Shilpi Neely Next of Kin Unknown [phone] Care Team Providers Care Lead Enterprise Architect Name Role Phone RICH MAGANA Attending Unavailable RACHEL EVGA Primary Care Unavailable RICH MAGANA Attending Unavailable RACHEL VEGA Primary Care Unavailable RICH MAGANA Attending Unavailable VEGA, RACHEL E Primary Care Unavailable COLE QUINTANA Attending Unavailable VEGA, RACHEL E Primary Care Unavailable ZOE BROWN Attending Unavailable VEGA, RACHEL E Primary Care Unavailable GIANLUCA CASTELLANO Attending Unavailable VEGA, RACHEL Amador Primary Care Unavailable GIANLUCA CASTELLANO Attending Unavailable VEGA, RACHEL E Primary Care Unavailable GRAY, GIANLUCA E Referring Unavailable STEPHANIEZOE BILLY Attending Unavailable VEGA, RACHEL E Primary Care Unavailable ZOE BROWN Attending Unavailable VEGA, RACHEL E Primary Care Unavailable JER, JESSICA L Attending Unavailable VEGA, RACHEL E Primary Care Unavailable EJR, JESSICA L Referring Unavailable GRAY, GIANLUCA E Attending Unavailable VEGA, RACHEL E Primary Care Unavailable JER, JESSICA L Attending Unavailable VEGA, RACHEL E Primary Care Unavailable STEPHANIE, DAWN M Attending Unavailable VEGA, RACHEL E Primary Care Unavailable JER, JESSICA L Attending Unavailable VEGA, RACHEL E Primary Care Unavailable GRAY, GIANLUCA E Attending Unavailable VEGA, RACHEL E Primary Care Unavailable JER, JESSICA L Attending Unavailable VEGA, RACHEL E Primary Care Unavailable STEPHANIE, DAWN M Attending Unavailable VEGA, RACHEL E Primary Care Unavailable GRAY, GIANLUCA E Attending Unavailable VEGA, RACHEL E Primary Care Unavailable Vega, Rachel E Primary Care Unavailable Consuelo Rodriguezfer L Admitting Unavailable MalheurJessica davenport L Attending Unavailable Vega, Rachel E Primary Care Unavailable Malheur, Jessica L Admitting Unavailable Michael, Jessica L Attending Unavailable Vega, Rachel E Primary Care Unavailable Vega, Rachel E Referring Unavailable Melissa Wilson Admitting Unavail able Demluigi, Melissa Williamson Attending Unavail able Brandon Zarate Admitting Unavailable Brandon Zarate Attending Unavailable Vega, Rachel E Primary Care Unavailable RICH MAGANA Referring Unavailable VEGA, RACHEL E Primary Care Unavailable Duron, Barbara Admitting [...] RACHEL Referring Unavailable Duron, Barbara Admitting Unavailable Domi, Barbara Attending Unavailable Issa Gonzales Attending Unavailable Issa Gonzales Admitting Unavailable GARY, RACHEL Referring Unavailable Issa Gonzales Admitting Unavailable VEGA, RACHEL Referring Unavailable Issa Gonzales Attending Unavailable Issa Gonzales Attending Unavailable Issa Gonzales Admitting Unavailable RACHEL VEGA Referring Unavailable Issa Gonzales Referring Unavailable Issa Gonzales Attending Unavailable Issa Gonzales Attending Unavailable Issa Gonzales Referring Unavailable Issa Gonzales Admitting Unavailable PROBLEMS DATE TYPE CONDITION / CODE ATTENDING STATUS KATHARINE R[facility] 5 Unknown Pain, unspecified / R52(ICD-10) NA [facility] 5 Unknown Stroke Alert / UNK(Unknown) NA [facility] 3 Admitting Diagnosis Hypokalemia / E87.6(ICD-10) ZOE BROWN [facility] 5 Unknown 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 4 Admitting Diagnosis Chronic migraine without aura, not intractable, without status migrainosus / G43.709(ICD-10) [facility] 4 Admitting Diagnosis Chronic migraine without aura, intractable, with status migrainosus / G43.711(ICD-10) [facility] 3 Admitting Diagnosis Major depressive disorder, single episode, severe without psychotic features (Multi) / F32.2(ICD-10) [facility] 3 Admitting Diagnosis Dizziness and giddiness / R42(ICD-10) GIANLUCA CASTELLANO [facility] 4 Admitting Diagnosis Severe persistent asthma with (acute) exacerbation (Multi) / J45.51(ICD-10) RICH MAGANA [facility] 4 Admitting Diagnosis Interstitial pulmonary disease, unspecified (Multi) / J84.9(ICD-10) RICH MAGANA [facility] 4 Admitting Diagnosis Candidal stomatitis / B37.0(ICD-10) STEPHANIE, ZOE [facility] 3 Admitting Diagnosis Other specified chronic obstructive pulmonary disease (Multi) / J44.89(ICD-10) [facility] 3 Admitting Diagnosis 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 Sincerely, [facility] [address] [address] ext.3 COMPLETE BLOOD COUNT PANEL Collected: 10/12/2024 4:18 AM Status: F Source: [facility] TYPE CODE TESTS RESULT OUT OF RANGE REFERENCE UNITS LAB 6690-2(LOINC) Leukocytes 7.9 4.4-11.3 x10*3/ uL LAB 15139-9(LOINC) Erythrocytes.nuc l eated/100 leukocytes 0.0 0.0-0.0 /100 [...] Platelets 199 150-450 x10*3/uL Performed By: #### [id number] # ### JOHN IYER ([id number]) [facility] [address] [place] [address] BASIC METABOLIC 2000 PANEL Collected: 0 10/12/2024 4:18 AM Status: F Source: [facility] TYPE CODE TESTS RESULT OUT OF RANGE REFERENCE UNITS LAB 2345-7(LOINC) Glucose 83 74-99 mg/dL LAB 2951-2(LOINC) Sodium 139 136-145 mmol/L LAB 2823-3(LOINC) Potassium 3.9 3.5-5.3 mmol/L LAB 2075-0(LOINC) Chloride 112 High 98-107 mmol/L LAB 8-9(LOINC) Carbon dioxide 22 21-32 mmo l/L LAB 59958-8(LOINC) Anion gap 9 Low 10-20 mmol/L LAB 3094-0(LOINC) Urea nitrogen 16 6-23 mg/d L LAB 2160-0(LOINC) Creatinine 0.92 0.50-1.30 mg/dL LAB 31069-9(LOINC) Glomerular filtration rate/1.73 sq M.predicted >90 >60 mL/min/1 .73m*2 Result Comment: Calculations of estimated GFR are performed using the 2020 CKD- EPI Study Refit equation without the race variable for the IDMS-Traceable creatinine methods. https://jasn.asnjournals.org/content/early//ASN.8223934533 LAB 04947-4(LOINC) Calcium 7.7 Low 8.6-10.3 mg/dL Performed By: #### 67540-1 # ### JOHN IYER ([id number]) [facility] [address] [place] [address] PATIENT LETTER [facility] Observed: 10/06/2024 10:33 AM Status: F Source: [facility] Patient Letter [facility] October 06, 2024 BRANDON FLORINDA [address] [place] [address] : 1960 Dear _ , You missed [...] scheduling portal at your convenience. Please call [phone] to reschedule. Our goal is to provide convenient and quality care to all of our patients. We appreciate your consideration regarding any future cancellations. Sincerely, [facility] PATIENT LETTER [facility] Observed: 10/06/2024 10:33 AM Status: F Source: [facility] Patient Letter [facility] October 06, 2024 BRANDON NEELY [address] [place] [address] : 1960 Dear _ , You missed [...] scheduling portal at your convenience. Please call [phone] to reschedule. Our goal is to provide convenient and quality care to all of our patients. We appreciate your consideration regarding any future cancellations. Sincerely, [facility] COMPLETE BLOOD COUNT PANEL Collected: 10/06/2024 4:44 AM Status: F Source: [facility] TYPE CODE TESTS RESULT OUT OF RANGE REFERENCE UNITS LAB 6690-2(LOINC) Leukocytes 6.1 4.4-11.3 x10*3/ uL LAB 69387-5(LOINC) Erythrocytes.nuc l eated/100 leukocytes 0.0 0.0-0.0 /100 [...] Platelets 258 150-450 x10*3/uL Performed By: #### 96914-6 # ### JOHN SHIREEN ([id number]) [facility] [address] [place] [address] COMPREHENSIVE METABOLIC 2000 PANEL Collected: 10/06/2024 4:44 AM Status: F Source: [facility] TYPE CODE TESTS RESULT OUT OF RANGE REFERENCE UNITS LAB 2345-7(LOINC) Glucose 71 Low 74-99 mg/dL LAB 2951-2(LOINC) Sodium 139 136-145 mmol/L LAB 2823-3(LOINC) Potassium 4.2 3.5-5.3 mmol/L LAB 2075-0(LOINC) Chloride 114 High 98-107 mmol/L LAB 2027-9(LOINC) Carbon dioxide 20 Low 21-32 mmo l/L LAB 81337-9(LOINC ) Anion gap 9 Low 10-20 mmol/L LAB 3094-0(LOINC) Urea nitrogen 27 High 6-23 mg/d L LAB 2160-0(LOINC) Creatinine 0.82 0.50-1.30 mg/dL LAB 48914-4(LOINC ) Glomerular filtration rate/1.73 sq M.predicted >90 >60 mL/min/ 1.73m*2 Result Comment: Calculations of estimated GFR are performed using the 2020 CKD- EPI Study Refit equation without the race variable for the IDMS-Traceable creatinine methods. https://jasn.asnjournals.org/content///ASN.3906488902 LAB 58383-3(LOINC ) Calcium 7.8 Low 8.6-10.3 mg/dL LAB 39132-8(LOINC ) Albumin 3.1 Low 3.4-5.0 g/dL LAB 6768-6(LOINC) Alkaline phosphatase 64 33-136 U/L LAB 2885-2(LOINC) Protein 4.8 Low 6.4-8.2 g/dL LAB 92757-0(LOINC ) Aspartate aminotransferase 9 9-39 U/L LAB 1975-2(LOINC) Bilirubin 0.4 0.0-1.2 mg/dL LAB 1743-4(LOINC) Alanine aminotransferase 9 Low 10-52 U/L Result Comment: Patients molly ated with Sulfasalazine may generate falsely decreased results for ALT. Performed By: #### 40415-1 # ### JOHN IYER ([id number]) [facility] [address] [place] [address] URINE CULTURE Observed: 10/02/2024 3:56 AM Status: F Source: [facility] <9,000 colonies/ml mixed bacterial skin contaminants 2 Days PERFORMED BY: [facility] [address] [place] [address] PATHOLOGIST BOW MAKING MACHINE OPERATOR ALBA BROWNING M.D. Performed By: #### CUU #### [facility] [address] PSA TOTAL Collected: 10:49 AM Status: F Source: [facility] TYPE CODE TESTS RESULT OUT OF RANGE REFERENCE UNITS LAB 2857-1([facility]) PROSTATE SPECIFIC AG:MCNC:PT:S ER/PLAS:QN: 2.5 Normal 0.1-3.5 ng/mL Result Comment: The concentr ation of PSA determined by different manufacturers can vary due to differences in assay methods and reagent specificity. Values obtained from different assay methods cannot be used interchangeably. The methodology used for this result was chemiluminescence using [employer] Access Hybritech PSA reagent. Performed By: #### [id number] #### [facility] [address] [place] [address] AMBULATORY VISIT SUMMARY Observed: 09/14 9:00 AM Status: F Source: [facility] Ambulatory Visit Summary BRANDON NEELY :1960 Visit Date:09/14/2024 Ambulatory Visit Instructions Your Diagnosis Rising PSA level Family history of prostate cancer Your Care Team Attending Physician - TATA TEIXEIRA, JESSICA English Primary Care Physician - RACHEL VEGA MD This Is Your Medications List [facility] Prescription (no lifting >30lbs, no bending to [...] capsule) fluticasone nasal (fluticasone Nasal 0.05 mg/inh Onset) galcanezumab (Emgality Prefilled Pen 120 mg/mL subcutaneous [...] JESSICA PAYTON PA-C Where: [facility] [address] [place] [address] 2024 11:30 AM EDT With: Issa Gonzales [...] fluticasone nasal (fluticasone Nasal 0.05 mg/ inh Onset) Unchanged galcanezumab (Emgality Prefilled Pen 120 mg/ [...] Collected: 5 1:13 PM Status: F Source: [facility] TYPE CODE TESTS RESULT OUT OF RANGE REFERENCE UNITS LAB [id number] POTASSIUM 3.8 Normal 3.5-5.3 mmol/L Performed By: #### 733 #### [facility] [address], [address] [place] [address] Marketing Outreach Coordinator: Oh Mckenna MD COMPLETE BLOOD COUNT AUTO DIFF Collected: 09/13/2024 9:48 AM Status: F Source: F [facility] TYPE CODE TESTS RESULT OUT OF RANGE [...] 0.0-0.2 10*3/uL Result Comment: PERFORMED BY : [place] [address] PATHOLOGIST BOW MAKING MACHINE OPERATOR BAMBI CHONG M.D. Performed By: #### CBC, CMP, FE and TIBC, BRIAN #### [facility] [address] [place] [address] [facility] COMPREHENSIVE METABOLIC PANEL Collected: 09/13/2024 9 :48 AM Status: F Source: [facility] TYPE CODE TESTS RESULT OUT [...] CBC, CMP, FE and TIBC, BRIAN #### [facility] [address] [place] [address] [facility] IRON AND TIBC PROFILE Collected: 09/13/2024 9:48 AM Status: F Source: [facility] TYPE CODE TESTS RESULT OUT OF RANGE REFERENCE UNITS LAB FE Iron 66 Normal 50-212 ug/dL LAB TIBCT Total Iron Binding Capacity 307 Normal 255-450 ug/dL LAB FESAT% % Iron Saturation 21.5 Normal 20-50 % LAB TRANS Transferrin 219 Normal 203-362 mg/dL Performed By: #### CBC, CMP, FE and TIBC, BRIAN #### [facility] [address] [place] [address] [facility] FERRITIN Collected: 9:48 AM Status: F Source: [facility] TYPE CODE TESTS RESULT OUT OF RANGE REFERENCE UNITS LAB BRIAN Ferritin 16.5 Low 23.9-336.2 ng/mL Result Comment: PERFORMED BY : [facility] [address] [place] [id number] PATHOLOGIST BOW MAKING MACHINE OPERATOR BAMBI CHONG M.D. Performed By: #### CBC, CMP, FE and TIBC, BRIAN #### [facility] [address] [place] [address] [facility] CONSULTATION NOTE Observed: 07/06/2024 10:52 AM Status: F Source: [facility] Consultation Note Patient is presenting [...] Comment: Electronical ly Signed By: Issa Gonzales DObr\Date and Time Signed: 07/06/24 11:01 EST OPERATIVE REPORT Observed: 06/09/2024 11:26 AM Status: F Source: [facility] Operative Report Diagnosis: M48.062, lumbar [...] the epidural space was confirmed using the ykwj-lb-cxqndhpljo technique and 2 cc of air. Injection [...] Comment: Electronical ly Signed By: Issa Gonzales DObr\Date and Time Signed: 06/09/24 11:27 EST MAIN OR INTRAOPERATIVE RECORD Observed: 06/09/2024 11:24 AM Status: F Source: [facility] Main OR Intraoperative Recor d IntraOp Document Type FTPM Summary Primary Physician: Issa Gonzales DO Finalized Date/Time: 06/09/24 11:27:18 Pt. Name: BRANDON NEELY/Sex: 1960 Male Med Rec #: [id number] Physician: Issa Gonzales DO Financial #: [id number] Pt. Type: P Room/Bed: / Admit/Disch: 06/09/24 [...] Matthew Rowan Role Performed Surgeon - Primary Sub Assembly Team Worker - Primary Scrub - Primary Time In 06/09/24 11:21:00 06/09/24 11:21:00 06/09/24 11:21:00 Time Out 06/09/24 11:27:00 06/09/24 11:27:00 06/09/24 11:27:00 Procedure LUMBAR EPIDURAL STEROID LUMBAR EPIDURAL STEROID LUMBAR EPIDURAL STEROID INJECTION(.) INJECTION(.) INJECTION(.) Comments Last Modified By: Wild GONZALEZ, Danyelle Rome RN, Danyelle Lilly RN 06/09/24 11:27:14 06/09/24 11:27:14 06/09/24 11:27:14 Entry 4 Case Attendee Rosalee Radford Role Performed Drug Safety Associate Time In 06/09/24 11:21:00 Time Out 06/09/24 [...] Christophe GONZALEZ, Matthew Rowan, Issa Gonzales DO, Daniel, Alissa M [...] and tissue Entry 1 Skin Integrity Intact, [place], Warm, & Skin Abnormality No Dry Outcomes [...] Last Modified By: Danyelle Rome RN 06/09/24 11:24:19 Post-Care Text: The patient [...] RECORD Observed: 8:45 AM Status: F Source: [facility] Main OR Preoperative Record Holding Area Document Type FTPM Summary Primary Physician: Issa Gonzales DO Finalized Date/Time: 06/09/24 10:06:39 Pt. Name: BRANDON NEELY/Sex: 1960 Male Med Rec #: [id number] Physician: Issa Gonzales DO Financial #: [id number] Pt. Type: P Room/Bed: / Admit/Disch: 06/09/24 [...] 05/27/2024 1:10 PM Status: F Source: F [facility] TYPE CODE TESTS RESULT OUT OF RANGE [...] 0.0-0.2 10*3/uL Result Comment: PERFORMED BY : [place] [address] PATHOLOGIST BOW MAKING MACHINE OPERATOR BAMBI CHONG M.D. Performed By: #### CBC, CMP, FE and TIBC, BRIAN #### [facility] [address] [place] [address] COMPREHENSIVE METABOLIC PANEL Collected: 05/27/2024 1 :10 PM Status: F Source: [facility] TYPE CODE TESTS RESULT OUT [...] CBC, CMP, FE and TIBC, BRIAN #### [facility] [address] IRON AND TIBC PROFILE Collected: 05/27/2024 1:10 PM Status: F Source: [facility] TYPE CODE TESTS RESULT OUT OF RANGE REFERENCE UNITS LAB FE Iron 204 Normal 50-212 ug/dL LAB TIBCT Total Iron Binding Capacity 336 Normal 255-450 ug/dL LAB FESAT% % Iron Saturation 60.7 High 20-50 % LAB TRANS Transferrin 240 Normal 203-362 mg/dL Performed By: #### CBC, CMP, FE and TIBC, BRIAN #### [address] FERRITIN Collected: 1:10 PM Status: F Source: [facility] TYPE CODE TESTS RESULT OUT OF RANGE REFERENCE UNITS LAB BRIAN Ferritin 22.6 Low 23.9-336.2 ng/mL Result Comment: PERFORMED BY : [place] [address] PATHOLOGIST BOW MAKING MACHINE OPERATOR BAMBI CHONG M.D. Performed By: #### CBC, CMP, FE and TIBC, BRIAN #### [address] ASSESSMENT AND PLAN NOTE Observed: 05/23/2024 7:25 AM Status: COMPLETED Source: [facility] This report has been cancell ed. CONSULTATION NOTE Observed: 05/09/2024 3:07 PM Status: F Source: [facility] Consultation Note Patient is presenting [...] felt the oxycodone was more beneficial than Cylinder we may consider prescribed oxycodone 5 mg [...] Comment: Electronical ly Signed By: Issa Gonzales DO.nii\Date and Time Signed: 05/09/24 15:12 EST ASSESSMENT AND PLAN NOTE Observed: 03/28/2024 1:00 PM Status: COMPLETED Source: [facility] This report has been cancell ed. CT CHEST HIGH RESOLUTION Observed: 03/08 10:24 AM Status: F Source: [facility] Order Comment: Supine and pr one Interpreted By: Amaya Gutierrez, and Siobhan Becker STUDY: CT CHEST HIGH RESOLUTION; 03/08/2024 1:41 pm INDICATION: Signs/Symptoms:ILD post covid. COMPARISON: High-resolution chest CT dated 02/16/2023 and 05/01/2022. ACCESSION NUMBER(S): [id number] ORDERING CLINICIAN: RICH MAGANA TECHNIQUE: Using helical [...] reviewed the images/study with Eugenio Mccann MD (Curator Herbarium) and I agree with the findings as stated. Signed by: Kolbyjose Gutierrez 03/08/2024 2:51 PM Dictation workstation: [id number] COMPLETE BLOOD COUNT AUTO DIFF Collected: 03/03/2024 2:30 PM Status: F Source: F [facility] TYPE CODE TESTS RESULT OUT OF RANGE [...] 0.0-0.2 10*3/uL Result Comment: PERFORMED BY : [place] [address] PATHOLOGIST BOW MAKING MACHINE OPERATOR SEBASTIAN KATZ M.D. Performed By: #### CBC, CMP, FE and TIBC, BRIAN #### [facility] [address] [place] [address] [facility] COMPREHENSIVE METABOLIC PANEL Collected: 03/03/2024 2 :30 PM Status: F Source: [facility] TYPE CODE TESTS RESULT OUT [...] CBC, CMP, FE and TIBC, BRIAN #### [facility] [address] [place] [address] [facility] IRON AND TIBC PROFILE Collected: 03/03/2024 2:30 PM Status: F Source: [facility] TYPE CODE TESTS RESULT OUT OF RANGE REFERENCE UNITS LAB FE Iron 100 Normal 50-212 ug/dL LAB TIBCT Total Iron Binding Capacity 357 Normal 255-450 ug/dL LAB FESAT% % Iron Saturation 28.0 Normal 20-50 % LAB TRANS Transferrin 255 Normal 203-362 mg/dL Performed By: #### CBC, CMP, FE and TIBC, BRIAN #### [facility] [address] [place] [address] [facility] FERRITIN Collected: 2:30 PM Status: F Source: [facility] TYPE CODE TESTS RESULT OUT OF RANGE REFERENCE UNITS LAB BRIAN Ferritin 36.1 Normal 23.9-336.2 ng/mL Result Comment: PERFORMED BY : [place] [address] PATHOLOGIST BOW MAKING MACHINE OPERATOR SEBASTIAN KATZ M.D. Performed By: #### CBC, CMP, FE and TIBC, BRIAN #### [facility] [address] [place] [address] [facility] CONSULTATION NOTE Observed: 01/18/2024 12:14 PM Status: F Source: [facility] Consultation Note Patient is presenting [...] are helpful reducing his pain. He takes Cylinder typically but he is taking oxycodone 0.5 tablets of the 5 mg / 325 mg 3 times per day. He feels that this is reducing his pain by least 50% when taking his medications. He feels that Cylinder was slightly more helpful and would like to continue back on that medication when we are able to as there is a national shortage per his pharmacy on Cylinder medications which is the reason we switched [...] 3 times a day due to a Cylinder shortage which we are continuing him on this medication until we can resume his Cylinder medication -We can refill his Flexeril on [...] Gonzales DO.br\Date and Time Signed: 01/18/24 12:17 EDT OPERATIVE REPORT Observed: 12/29/2023 8:55 AM Status: F Source: [facility] Operative Report Diagnosis: M54.17, lumbar [...] the epidural space was confirmed using the ijww-em-dcdlellgba technique and 2 cc of air. Injection [...] Observed: 12/29/2023 8:53 AM Status: F Source: [facility] Main OR Intraoperative Recor d IntraOp Document Type FTPM Summary Primary Physician: Issa Gonzales DO Finalized Date/Time: 12/29/23 08:55:07 Pt. Name: BRANDON NEELY/Sex: 1960 Male Med Rec #: [id number] Physician: Issa Gonzales DO Financial #: [id number] Pt. Type: P Room/Bed: / Admit/Disch: 12/29/23 [...] Madison A Role Performed Surgeon - Primary Drug Safety Associate Sub Assembly Team Worker - Primary Time In 12/29/23 08:50:00 12/29/23 [...] and tissue Entry 1 Skin Integrity Intact, [place], Warm, & Skin Abnormality No Dry Outcomes [...] RECORD Observed: 8:45 AM Status: F Source: [facility] Main OR Preoperative Record Holding Area Document Type FTPM Summary Primary Physician: Issa Gonzales DO Finalized Date/Time: 12/29/23 07:45:28 Pt. Name: FLORINDABRANDON/Sex: 1960 Male Med Rec #: [id number] Physician: Issa Gonzales DO Financial #: [id number] Pt. Type: P Room/Bed: / Admit/Disch: 12/29/23 [...] Signed By: Matthew Saeed RN 12/29/23 07:45 PINKING SEWING MACHINE OPERATOR DRUG SCREEN-LC Collected: 11:15 AM Status: F Source: [facility] TYPE CODE TESTS RESULT OUT OF RANGE REFERENCE UNITS LAB 96325482(LOINC) Test Name toxassure 23 Unknown Performed By: #### [id number] #### [facility] Laboratory [address] [place] [address] CONSULTATION NOTE Observed: 12/04/2023 11:04 AM Status: F Source: [facility] Consultation Note Patient: BRANDON NEELY [...] mg at bedtime as needed for pain, Cylinder 5/325 1 p.o. 3 times daily as [...] BID, # 180 cap(s), Refills(s) 0, Pharmacy: [facility]/pharmacy #[id number], 175, cm, 12/04/23 10:56:00 EDT, Height/Length Dosing, 74, kg, 12/04/23 10:56:00 EDT, Weight Dosing Cylinder 325 mg-5 mg oral tablet: 1 tab(s), Oral, TID as needed for pain, 90 tab(s), Refill(s) 0, [facility]/pharmacy #[id number], 175, cm, 12/04/23 10:56:00 EDT, Height/Length Dosing, 74, kg, 12/04/23 10:56:00 EDT, Weight Dosing cyclobenzaprine 10 mg Tab: 10 mg = 1 tab(s), Oral, Bedtime, PRN for spasm, # 90 tab(s), Refills(s) 0, Pharmacy: [facility]/pharmacy #[id number], 175, cm, 12/04/23 10:56:00 EDT, Height/Length Dosing, 74, kg, 12/04/23 10:56:00 EDT, Weight Dosing no lifting >30lbs, no bending to the ground, no using ramp unless necessary: no lifting >30lbs, no bending to the ground, no using ramp unless necessary, Print Requisition, Supply Documented Medications Documented Aimpog SureClick Autoinjector-aooe 140 mg/mL subcutaneous solution: Refills(s) [...] capsule: Refills(s) 0 fluticasone Nasal 0.05 mg/inh Onset: Refill(s) 0 ketorolac 10 mg Tab: Refills(s) [...] = 1 mL, Oral, q6hr, For an infant give as one milliliter to each side [...] list: All Problems Hyperlipemia / SNOMED CT 62457979 / Confirmed Hypertension / SNOMED CT 1429225388 / Confirmed Anxiety / SNOMED CT 12308233 / Confirmed Vertigo / SNOMED CT 3534920077 / Confirmed Sleep apnea / SNOMED CT 893025755 / Confirmed Family history of prostate cancer / SNOMED CT 6997476836 / Confirmed Incomplete emptying of bladder / SNOMED CT 635501516 / Confirmed BPH with urinary obstruction / SNOMED CT 3760901919 / Confirmed Decreased libido / SNOMED CT 532845567 / Confirmed Rising PSA level / SNOMED CT 7824815623 / Confirmed Recurrent UTI / SNOMED CT 079873091 / Confirmed Resolved: H/O: TIA / SNOMED CT 002594220 Resolved: Asthma / SNOMED CT 814159119 Resolved: COPD (chronic obstructive pulmonary disease) / SNOMED CT 585695W8-M84P-151O-LZV1-M03Q389ZAR2V Resolved: Low testosterone in male / SNOMED CT 362427905 Resolved: Hypogonadism male / SNOMED CT 61602713 Resolved: Prostate cancer screening / SNOMED CT 712145839 Objective Vital Signs 12/04/2023 10:29 EDT Peripheral [...] Ambulating with a cane Integumentary: Warm, Dry, [place]. Neurologic: Alert, Oriented. Psychiatric: Cooperative, Appropriate mood [...] mg at bedtime as needed for pain, Cylinder 5/325 1 p.o. 3 times daily as [...] Collected: 11/30/2023 4:05 PM Status: F Source: [facility] TYPE CODE TESTS RESULT OUT OF RANGE REFERENCE UNITS LAB 2345-7(LOINC) Glucose 100 High 74-99 mg/dL LAB 2951-2(LOINC) Sodium 135 Low 136-145 mmol/L LAB 2823-3(LOINC) Potassium 4.1 3.5-5.3 mmol/L LAB 2075-0(LOINC) Chloride 105 98-107 mmol/L LAB 2027-9(LOINC) Carbon dioxide 21 21-32 mmo l/L LAB 13419-2(LOINC ) Anion gap 13 10-20 mmol/L LAB 3094-0(LOINC) Urea nitrogen 29 High 6-23 mg/d L LAB 2160-0(LOINC) Creatinine 0.93 0.50-1.30 mg/dL LAB 26353-5(LOINC ) Glomerular filtration rate/1.73 sq M.predicted >90 >60 mL/min/ 1.73m*2 Result Comment: Calculations of estimated GFR are performed using the 2020 CKD- EPI Study Refit equation without the race variable for the IDMS-Traceable creatinine methods. https://jasn.asnjournals.org/content///ASN.5386373333 LAB 20846-7(LOINC ) Calcium 9.8 8.6-10.6 mg/dL LAB 11729-9(LOINC ) Albumin 4.7 3.4-5.0 g/dL LAB 6768-6(LOINC) Alkaline phosphatase 115 33-136 U/L LAB 2885-2(LOINC) Protein 8.0 6.4-8.2 g/dL LAB 20893-8(LOINC ) Aspartate aminotransferase 16 9-39 U/L LAB 1975-2(LOINC) Bilirubin 0.8 0.0-1.2 mg/dL LAB 1743-4(LOINC) Alanine aminotransferase 13 10-52 U/L Result Comment: Patients molly ated with Sulfasalazine may generate falsely decreased results for ALT. Performed By: #### 84700-4 # ### CRISTIN Gutierrez ([id number]) [facility] ([facility]) [address] [place] [address] US VENOUS DUPLEX LE BI Observed: 024 4:11 PM Status: COMPLETED Source: [facility] Main [address] [address] Ultrasound Report Signed Patient: Brandon Neely MR#: [id number] 66 : 1960 Acct:[id number] Age/Sex: 63 / M ADM Date: 11/24/23 Loc: Room: Type: [facility] Attending Dr: Jessica RUBI Ordering Provider: SKY [...] Jayant Davis M.D.11/25/2023 4:12 PM Dictation Location: [facility] Tech: Joietres Vaughner Transcribed By: MEI 11/25/231611 Dictated By: Jayant Davis MD 11/25/23 161 Signed By: <Electronically signed by MD Jayant Davis in OV> 11/25/23 1612 COMPLETE BLOOD COUNT AUTO DIFF Collected: 11/24/2023 4:03 PM Status: F Source: F [facility] TYPE CODE TESTS RESULT OUT OF RANGE [...] 0.0-0.2 10*3/uL Result Comment: PERFORMED BY : [facility] [place] [address] PATHOLOGIST BOW MAKING MACHINE OPERATOR SEBASTIAN KATZ M.D. Performed By: #### CBC, FE a nd TIBC, BRIAN #### [facility] [address] [place] [address] [facility] IRON AND TIBC PROFILE Collected: 11/24/2023 4:03 PM Status: F Source: [facility] TYPE CODE TESTS RESULT OUT OF RANGE REFERENCE UNITS LAB FE Iron 80 Normal 50-212 ug/dL LAB TIBCT Total Iron Binding Capacity 302 Normal 255-450 ug/dL LAB FESAT% % Iron Saturation 26.5 Normal 20-50 % LAB TRANS Transferrin 216 Normal 203-362 mg/dL Performed By: #### CBC, FE a nd TIBC, BRIAN #### [facility] [address] [place] [address] [place] FERRITIN Collected: 4:03 PM Status: F Source: [facility] TYPE CODE TESTS RESULT OUT OF RANGE REFERENCE UNITS LAB BRIAN Ferritin 71.0 Normal 23.9-336.2 ng/mL Result Comment: PERFORMED BY : [place] [address] PATHOLOGIST BOW MAKING MACHINE OPERATOR SEBASTIAN KATZ M.D. Performed By: #### CBC, FE a nd TIBC, BRIAN #### [place] [id number] [facility] XR ANKLE LT MIN 3V* Observed: 11/24/2023 3:37 PM Status: COMPLETED Source: [facility] [address] [place] [address] XRay Report Signed Patient: Brandon Neely MR#: [id number] 66 : 1960 Acct:[id number] Age/Sex: 63 / M ADM Date: 11/24/23 Loc: [facility] Room: Type: [facility] Attending Dr: Jessica Rodriguez RADIAL DRILL PRESS SET UP OPERATOR-C Copies to: SKY Romero Ordering Provider: SKY [...] SPURRING. Impression dictated by: Dustin Last Jr., D.OSindi11/24/2023 3:37 PM Dictation Location: [facility]--14 Transcribed By: MEI 11/24/231536 Dictated By: Dustin Last Jr, DO 11/24/23 153 Signed By: <Electronically signed by Dustin Last Jr, DO in OV> 11/24/231536 LABORATORY OUTSIDE OFFICE COPY Observed: 06/11/2023 8:34 AM Status: F Source: [facility] [id number]#1.00TIFF INSURANCE CORRESPONDENCE OFFICE Observed: 06/09/2023 9:08 AM Status: C Source: [facility] [id number]#2.00TIFF ALLERGIES DATE TYPE / CODE NAME / CODE REACTION SEVERITY SOURCE 5 Drug Allergy/535351511( SNOMED CT) iodine/G310722275( RXNORM) Hives Unknown [facility] 5 Drug Allergy/374438372( SNOMED CT) monosodium glutamate/Q5442883 14(RXNORM) Hives Unknown [facility] 5 Drug Allergy/866827322( SNOMED CT) diazepam/X01272360 1(RXNORM) Unknown Reaction, depression Unknown [facility] 5 Drug Allergy/097826052( SNOMED CT) penicillin G benzathine/O329158 683(RXNORM) Hives Unknown [facility] 5 Drug Allergy/975839529( SNOMED CT) penicillin V/J226211807(RXNOR M) Rash Unknown [facility] 5 Drug Allergy/936355474( SNOMED CT) diltiazem/T2061353 14(RXNORM) Unknown Reaction Unknown [facility] 5 Drug Allergy/458301319( SNOMED CT) candesartan/W41966 7275(RXNORM) Unknown Reaction Unknown [facility] 5 Drug Allergy/593422871( SNOMED CT) cefdinir/J20854836 8(RXNORM) Unknown Reaction Unknown [facility] 5 Drug Allergy/275575283( SNOMED CT) chocolate flavor/P464164700( RXNORM) Headache Unknown [facility] 5 Drug Allergy/818695870( SNOMED CT) avocado/N087719937 (RXNORM) swelling Unknown [facility] 5 Drug Allergy/759727298( SNOMED CT) grass pollen/W415342997( RXNORM) Unknown Reaction Unknown [facility] 5 DRUG INGREDI~Food/84773 1000(SNOMED CT) ASPARTAME Headache [facility] 4 DRUG INGREDI/381599500( SNOMED CT) CANDESARTAN Other [facility] 4 DRUG INGREDI/290072403( SNOMED CT) CEFDINIR [facility] 4 DRUG INGREDI/851406868( SNOMED CT) DILTIAZEM Other [facility] 4 DRUG INGREDI/002341569( SNOMED CT) IODINE Hives~Unknown [facility] 4 DRUG INGREDI~Food/29545 1000(SNOMED CT) CHOCOLATE FLAVOR Headache [facility] 3 DRUG INGREDI~Environ/[address](SN[address] CT) GRASS POLLEN Cough [facility] 3 DRUG INGREDI~Food/99384 1000(SNOMED CT) MONOSODIUM GLUTAMATE Headache [facility] 3 DRUG INGREDI~Food/90531 1000(SNOMED CT) COCOA Headache [facility] 3 Miscellaneous Allergy/742933628( SNOMED CT) OTHER [facility] 3 DRUG INGREDI/410459908( SNOMED CT) PINE OIL [facility] 9 DRUG INGREDI/199278420( SNOMED CT) BACLOFEN [facility] 9 DRUG INGREDI/701153059( SNOMED CT) CIPROFLOXACIN [facility] 9 DRUG INGREDI/759273596( SNOMED CT) INDOMETHACIN [facility] 9 Drug Class/056597602(SN OMED CT) PENICILLINS [facility] 9 DRUG INGREDI/555081909( SNOMED CT) [facility]ANOLOL [facility] Drug Class/561709397(SN OMED CT) SULFA (SULFONAMIDE ANTIBIOTICS) [facility] 9 DRUG INGREDI/513239497( SNOMED CT) PROPRANOLOL [facility] 8 Drug Class/721552310(SN OMED CT) SULFA (SULFONAMIDE ANTIBIOTICS) Rash [facility] 8 DRUG INGREDI/654188245( SNOMED CT) DIAZEPAM Other~[facility] 7 DRUG INGREDI/236035685( SNOMED CT) BACLOFEN [facility] 7 DRUG INGREDI/964813918( SNOMED CT) CIPROFLOXACIN Swelling [facility] 7 DRUG INGREDI/424414466( SNOMED CT) INDOMETHACIN Rash [facility] 7 Drug Class/061305364(SN OMED CT) PENICILLINS Hives [facility] 0 DRUG INGREDI~Food/07770 1000(SNOMED CT) AVOCADO Respiratory [facility] /383620956(SNOME D CT) Aspartame 12477997 [facility] /864977489(SNOME D CT) MSG (monosodium glutamate) 57314472 [facility] /869288083(SNOME D CT) ciprofloxacin 155727005 [facility] ELISABETH588353540(SNOME D CT) propranolol 38024 [facility] ELISABETH609779423(SNOME D CT) baclofen 21642470 [facility] ELISABETH918369838(SNOME D CT) penicillins 189273238 [facility] ELISABETH171103100(SNOME D CT) sulfa drugs 535805862 [facility] ELISABETH899146805(SNOME D CT) iodine 525279860 [facility] ELISABETH095893404(SNOME D CT) Indocin 940257123~681916 015 [facility] ENCOUNTERS ADMIT/DISCHARGE ACCOUNT NUMBER ADMITTING ENCOUNTER CLASS LOCATION SOURCE 11/07/2024/11/08/19 [id number] Ambulatory Building:[facility] [id number] Ambulatory 11/01/2024/11/02/19 [id number] [facility] 10/06/2024/10/07/19 25 [id number] [facility] 10/05/2024 [id number] Ambulatory Building:Un own [facility] 10/05/2024 [id number] Ambulatory Building:Un own [facility] 10/05/2024 [id number] Ambulatory Building:Un own [facility] 10/05/2024 [id number] Ambulatory Building:Un own [facility] 10/05/2024 [id number] Ambulatory Building:Un own [facility] 10/05/2024 [id number] Ambulatory Building:Un kn own [facility] 10/02/2024/10/08/19 25 [id number] Emergency Buildin 1Room: TELESTROKEBed : TELESTROKE BED [facility] 10/02/2024/10/03/[id number] [facility] [facility] [facility] 09/20/2024/09/21/19 [id number] [facility] 09/14/2024 [id number] JESSICA PAYTON Ambulatory FTMCBuilding: FT LAB [facility] 09/14/2024/09/15/19 25 [id number] JESSICA PAYTON E Ambulatory FTMCBuilding: FT LAB [facility] 09/14/2024/09/15/19 25 [id number] [facility] 09/13/2024/09/14/19 25 [id number] Ambulatory Building:[address] Ambulatory 09/13/2024 [id number] Melissa Wilson [facility] 09/12/2024/09/13/19 [id number] Ambulatory Building:[address] Ambulatory 08/17/2024/08/18/19 [id number] Ambulatory Building:[address] 08/10/2024/08/11/19 25 [id number] Ambulatory Building:[address] Ambulatory 07/25/2024/07/26/19 25 [id number] Ambulatory Building:[address] 07/06/2024/07/07/19 [id number] Ambulatory Building:[address] Ambulatory 07/06/2024/07/07/19 [id number] Issa Gonzales Ambulatory FTMCBuilding: FT PMCRoom: 4 [facility] 06/14/2024/06/14/19 [id number] Ambulatory Building:[address] Ambulatory 06/09/2024/06/09/19 [id number] Ambulatory FTMCBuilding: FT OPS [facility] 06/02/2024/06/02/19 [id number] Ambulatory Building:[address] Ambulatory 05/11/2024/05/11/19 25 [id number] Ambulatory Building:[address] Ambulatory 05/09/2024/05/09/19 25 [id number] Issa Gonzales Ambulatory FTMCBuilding: FT PMCRoom: [facility] 04/13/2024/04/13/20 24 [id number] Ambulatory Building:[address] 04/07/2024/04/07/20 24 [id number] Ambulatory Building:[address] Ambulatory 03/08/2024/03/08/20 24 [id number] Ambulatory Building:[address] 03/08/2024/03/08/20 24 [id number] Ambulatory Building:[address] Ambulatory 02/16/2024/02/16/20 24 [id number] Ambulatory Building:[address] Ambulatory 01/18/2024/01/18/20 24 [id number] Issa Gonzales Ambulatory FTMCBuilding: FT PMCRoom: [address] 01/11/2024/01/11/20 24 [id number] Ambulatory Building:[address] Ambulatory 12/29/2023/12/29/19 24 [id number] Issa Gonzales Ambulatory FTMCBuilding: FT OPS [facility] 12/07/2023/12/07/19 24 [id number] Ambulatory Building:[address] 12/07/2023/12/07/19 24 [id number] Ambulatory Building:[address] 12/04/2023 [id number] Barbara Duron Ambulatory FTMCBuilding: FT LAB [facility] 12/04/2023/12/04/19 24 [id number] Barbara Duron Ambulatory FTMCBuilding: FT LAB [facility] 12/04/2023/12/04/19 24 [id number] Barbara Duron Ambulatory FTMCBuilding: FT PMCRoom: [facility] 11/30/2023/11/30/19 24 [id number] Ambulatory Building:[address] Ambulatory 11/24/2023/11/24/19 24 [id number] Jessica Rodriguez [facility] 11/24/2023/11/24/19 24 [id number] Jessica Rodriguez [facility]ulatory [facility]SOXD [facility] 04/14/2022 [id number] [facility] PAYERS ENCOUNTER GUARANTOR PAYER SUBSCRIBER SOURCE 11/07/2024 BRANDON SAVEDGEDOB: [place] [id number]: (HP) Primary Insurance:SAÚLEM MEDICAREPolicy Number: [id number] Date:2022-07-02 BRANDON SAVEDGEDOB: [id number] [place] [address]Eur: (HP) [facility] 11/01/2024 BRANDON Valdivia SAVEDGEDOB: MELISSA URENAETel: ~~(4 1 (HP) Primary Insurance:AnthemPolicy Number: [id number] Date:4384-47-99GR [address] [place] [address]GF: [facility]ON [facility]ia [facility] 10/06/2024 BRANDON Valdivia SAVEDGEDOB: MELISSA URENAETel: ~~(4 1 (HP) Primary Insurance:AnthemPolicy Number: [id number] Date:6083-94-09QY [address] [place] [address]UZ: BRANDON Valdivia [facility] 10/05/2024 BRANDON Valdivia SAVEDGEDOB: [place] [address]Znc: (HP) Primary Insurance:JOSE ANTONIO [facility]Policy Number: [id number] Date:2018-08-022024-10-01 BRANDON Valdivia SAVEDGEDOB: [id number], [place] [address] [facility] 10/05/2024 BRANDON Valdivia SAVEDGEDOB: [place], [place] [address]Fot: (HP) Primary Insurance:[facility] Number: [id number] Date:2018-08-022024-10-01 BRANDON Valdivia SAVEDGEDOB: [id number], [place] [address] [facility] 10/05/2024 BRANDON Valdivia SAVEDGEDOB: [place], [place] [address]Trs: (HP) Primary Insurance:[facility] Number: [id number] Date:2018-08-022024-10-01 BRANDON Valdivia SAVEDGEDOB: [id number], [place] [address] [facility] 10/05/2024 BRANDON Valdivia SAVEDGEDOB: [place], [place] [address]Vbu: (HP) Primary Insurance:[facility] Number: [id number] Date:2018-08-022024-10-01 BRANDON Valdivia SAVEDGEDOB: [id number] [address], [place] [address] [facility] 10/05/2024 BRANDON Valdivia SAVEDGEDOB: [place], [place] [address]Pvf: (HP) Primary Insurance:[facility] Number: [id number] Date:2018-08-022024-10-01 BRANDON Valdivia SAVEDGEDOB: [id number], [place] [address] [facility] 10/05/2024 BRANDON Valdivia SAVEDGEDOB: [place], [place] [address]Qgz: (HP) Primary Insurance:[facility] Number: [id number] Date:2018-08-022024-10-01 BRANDON Valdivia SAVEDGEDOB: [id number] [address], [place] [address] [facility] Ambulatory [facility] 10/02/2024 BRANDON Valdivia SAVEDGEDOB: [place] [address]Fou: (HP) Primary Insurance:JOSE ANTONIO [facility] Number: [id number] Date:2018-08-022024-10-01 BRANDON Valdivia SAVEDGEDOB: [id number] [address], [place] [address] [facility] Ambulatory [facility] 10/02/2024 Brandon Valdivia [id number] [place] [address]Jud: (HP) Primary Insurance:Self PayPolicy Number: Effective Date:2024-10-02 [facility]/20/2024 BRANDON Valdivia SAVEDGEDOB: MELISSA AVETel: ~~(4 1 (HP) Primary Insurance:AnthemPolicy Number: [id number] Date:8991-51-82RD [address] [place] [address]KL: [facility]ON [facility]div[facility] 09/14/2024 BRANDON Valdivia SAVEDGEDOB: MELISSA AVETel: ~~(4 1 (HP) Primary Insurance:AnthemPolicy Number: [id number] Date:8874-22-90MP [address] [place] [address]HF: BRANDON Valdivia [facility] 09/14/2024 BRANDON Valdivia SAVEDGEDOB: MELISSA AVETel: ~~(4 1 (HP) Primary Insurance:AnthemPolicy Number: [id number] Date:6362-02-52DQ [address] [place] [address]VF: BRANDON Valdivia SAVEDGEUNK [facility] 09/13/2024 BRANDON SAVEDGEDOB: [place] [address]Yir: (HP) Primary Insurance:SUSIE MEDICAREPolicy Number: [id number] Date:2022-07-02 BRANDON SAVEDGEDOB: [id number] [place] [address]Dai: (HP) [facility] 09/13/2024 Brandon Valdivia [id number] [place] [address]Kul: (HP) Primary Insurance:Susie HERRERA PFFSPolicy Number: [id number] Date:2022-01-02 Brandon Valdivia SavedgeDOB: [id number] Melissa [place] [id number]: (HP) [facility] 09/13/2024 Secondary Insurance:Self PayPolicy Number: Effective Date:2022-01-02 [facility] 09/12/2024 BRANDON SAVEDGEDOB: [place] [id number]: (HP) Primary Insurance:ANTHASHLEY MEDICAREPolicy Number: [id number] Date:2022-07-02 BRANDON SAVEDGEDOB: [id number] [address] [place] [id number]: (HP) [facility] 08/17/2024 BRANDON SAVEDGEDOB: [place] [address]Hml: (HP) Primary Insurance:SUSIE MEDICAREPolicy Number: [id number] Date:2022-07-02 BRANDON SAVEDGEDOB: [id number] [place] [address]Enw: () [facility] 08/10/2024 BRANDON SAVEDGEDOB: [place] [address]Nhv: () Primary Insurance:SUSIE MEDICAREPolicy Number: [id number] Date:2022-07-02 BRANDON SAVEDGEDOB: [id number] [place] [address]Dtd: () [facility] 07/25/2024 BRANDON SAVEDGEDOB: [place] [address]Fkf: () Primary Insurance:SUSIE MEDICAREPolicy Number: [id number] Date:2022-07-02 BRANDON SAVEDGEDOB: [id number] [address] [place] [id number]: () [facility] 07/06/2024 BRANDON SAVEDGEDOB: [place] [address]Tfe: () Primary Insurance:SUSIE MEDICAREPolicy Number: [id number] Date:2022-07-02 BRANDON SAVEDGEDOB: [id number] [place] [address]Ccr: () [facility] 07/06/2024 BRANDON SAVEDGEDOB: MELISSA Lindol: ~~(4 1 () Primary Insurance:AnthemPolicy Number: [id number] Date:3432-10-58HI Jeremi [address] [place] [id number]: [facility] BRANDON SAVEDGEDOB: [place] [address]Cyd: (HP) Primary Insurance:ANTHEM MEDICAREPolicy Number: [id number] Date:2022-07-02 BRANDON SAVEDGEDOB: [id number] [place] [address]Lpi: (HP) [facility] 06/09/2024 BRANDON SAVEDGEDOB: MELISSA AVETel: ~~(4 1 (HP) Primary Insurance:AnthemPolicy Number: [id number] Date:9914-64-54[address], [place] [address]EK: BRANDON [facility] 06/02/2024 BRANDON SAVEDGEDOB: [place] [address]Raz: () Primary Insurance:ANTHEM MEDICAREPolicy Number: [id number] Date:2022-07-02 BRANDON SAVEDGEDOB: [id number] [place] [address]Vom: () [facility] 05/11/2024 BRANDON SAVEDGEDOB: [place] [address]Sjh: () Primary Insurance:ANTHEM MEDICAREPolicy Number: [id number] Date:2022-07-02 BRANDON SAVEDGEDOB: [id number] [place] [address]Qiv: () [facility] 05/09/2024 BRANDON SAVEDGEDOB: MELISSA URENAETel: ~~(4 1 (HP) Primary Insurance:AnthemPolicy Number: [id number] Date:2532-40-45[address], [place] [address]AE: BRANDON [facility] 04/13/2024 BRANDON SAVEDGEDOB: [place] [address]Pcd: () Primary Insurance:SAÚLASHLEY MEDICAREPolicy Number: [id number] Date:2022-07-02 BRANDON SAVEDGEDOB: [id number] [place] [address]Xnd: (HP) [facility] 04/07/2024 BRANDON SAVEDGEDOB: [place] [address]Ina: () Primary Insurance:SAÚL MEDICAREPolicy Number: [id number] Date:2022-07-02 BRANDON SAVEDGEDOB: [id number] [place] [address]Uua: () [facility] 03/08/2024 BRANDON SAVEDGEDOB: [place] [address]Ett: () Primary Insurance:SUSIE MEDICAREPolicy Number: [id number] Date:2022-07-02 BRANDON SAVEDGEDOB: [id number] [place] [address]Dzd: () [facility] 03/08/2024 BRANDON SAVEDGEDOB: [place] [address]Djs: () Primary Insurance:SAÚL MEDICAREPolicy Number: [id number] Date:2022-07-02 BRANDON SAVEDGEDOB: [id number] [place] [address]Ohl: () [facility] 02/16/2024 BRANDON SAVEDGEDOB: [place] [address]Mww: () Primary Insurance:ANTHASHLEY MEDICAREPolicy Number: [id number] Date:2022-07-02 BRANDON SAVEDGEDOB: [id number] [place] [address]Jjy: () [facility] 01/18/2024 BRANDON SAVEDGEDOB: MELISSA AVETel: ~~(4 1 (HP) Primary Insurance:AnthemPolicy Number: [id number] Date:1480-22-32FV [address] [place] [address]YX: [facility] BRANDON SAVEDGEDOB: [place] [address]Kxh: () Primary Insurance:ANTHEM MEDICAREPolicy Number: [id number] Date:2022-07-02 BRANDON SAVEDGEDOB: [id number] [place] [address]Mve: () [facility] 12/29/2023 BRANDON SAVEDGEDOB: MELISSA URENAETel: ~~(4 1 (HP) Primary Insurance:AnthemPolicy Number: [id number] Date:4076-63-50IP [address] [place] [address]TT: [facility]/07/2023 BRANDON SAVEDGEDOB: [place] [address]Oyl: () Primary Insurance:ANTHASHLEY MEDICAREPolicy Number: [id number] Date:2022-07-02 BRANDON SAVEDGEDOB: [id number] [place] [address]Fab: (HP) [facility] 12/07/2023 BRANDON SAVEDGEDOB: [place] [address]Bgt: (HP) Primary Insurance:ANTHEM MEDICAREPolicy Number: [id number] Date:2022-07-02 BRANDON SAVEDGEDOB: [id number] [place] [address]Mhh: (HP) [facility] 12/04/2023 BRANDON SAVEDGEDOB: MELISSA URENAETel: ~~(4 1 (HP) Primary Insurance:AnthemPolicy Number: [id number] Date:5334-37-63KQ [address] [place] [address]NY: [facility]2023 BRANDON SAVEDGEDOB: MELISSA URENAETel: ~~(4 1 (HP) Primary Insurance:AnthemPolicy Number: [id number] Date:2446-38-22BB [address] [place] [address]FZ: [facility] 11/30/2023 BRANDON SAVEDGEDOB: [place] [address]Ept: (HP) Primary Insurance:ANTHEM MEDICAREPolicy Number: [id number] Date:2022-07-02 BRANDON SAVEDGEDOB: [id number] [place] [address]Ocm: () [facility] 11/24/2023 Brandon Valdivia [id number] [place] [address]Iqv: (HP) Primary Insurance:[employer] SHARON PFFSPolicy Number: [id number] Date:2023-11-24 Brandon Valdivia SavedgeDOB: [id number] [place] [address]Mbb: () [facility] 11/24/2023 Secondary Insurance:Self PayPolicy Number: Effective Date:2023-11-24 [facility] Brandon Valdivia [id number] [place] [address]Cza: () Primary Insurance:[place] MCR PFFSPolicy Number: [id number] Date:2023-11-24 Brandon Valdivia SavedgeDOB: [id number] [place] [address]Kcb: () [facility] 11/24/2023 Secondary Insurance:Self PayPolicy Number: Effective Date:2023-11-24 [facility]2022 BRANDON SAVEDGEDOB: PINEOLA STTel: () Primary Insurance:AnthemPolicy Number: [id number] Date:0210-78-44GM JEREMI [address] [place] [address]LJ: BRANDON SAVEDGEJORDAN [facility]
[2024-11-08] VITALS (26 sets, daily range): BP systolic 98–139; BP diastolic 64–81; PULSE 67–91; TEMP 36.4–36.8; O2SAT 86–98; BMI 25.7; BMI 26.1
--- NOTE | 2024-11-08 14:15 | ECG_ITS ---
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
--- NOTE | 2024-11-08 14:29 | CT_ITS ---
The [address] [address] Patient Name: VERNA NEELY MRN: [id number] date: 1960 Sex: M Assigned Patient Location: ER Current Patient Location: Accession/Order Number: [id number] Exam Date: 11/08/2024 14:46 Report Date: 11/08/2024 14:50 At the request of: MARK SERRANO MD Procedure: CT stroke head/brain wo con CT stroke head/brain wo con 11/08/2024 2:41 PM SIGNS AND SYMPTOMS: Confusion, syncopal episode TECHNIQUE:Multi-detector CT axial slices of the brain were obtained without IV contrast. CT was performed with one or more of the following dose reduction techniques: Automated exposure control, adjustment of the mA and/or kV according to patient size, or use of iterative reconstruction technique. COMPARISON: 10/04/2024 FINDINGS: There is no shift of the midline structures, acute intracranial bleeding, mass effects, or evidence of acute ischemia. Atherosclerotic changes noted in the intracranial segments of the internal carotid arteries. Gliosis and encephalomalacia in the left occipital cortex consistent with the previous infarct. There is periventricular white matter hypoattenuation. There is age-related cortical atrophy. The ventricular system is normal in size. The brainstem and the cerebellum are unremarkable. The visualized intraorbital contents, the visualized paranasal sinuses, and the infratemporal soft tissues show no acute abnormality. The osseous structures in the skull base and the calvarium show no abnormality. CT/CT stroke head/brain wo con IMPRESSION: No acute intracranial pathology. If there is ongoing clinical concern for acute to subacute ischemia, follow-up with MRI is recommended. Findings are consistent with remote acute to subacute ischemic injury in the left occipital cortex. Additional chronic findings are redemonstrated as above. Impression dictated by: Josep Jacinto M.D. 11/08/2024 2:50 PM Dictation Location: [place] [address] Electronically authenticated by: [id number] Y Date: 11/08/2024 14:50
--- NOTE | 2024-11-08 14:29 | XR_ITS ---
The [address] [address] Patient Name: VERNA NEELY MRN: [id number] date: 1960 Sex: M Assigned Patient Location: ER Current Patient Location: ER Accession/Order Number: [id number] Exam Date: 11/08/2024 14:50 Report Date: 11/08/2024 14:51 At the request of: MARK SERRANO MD Procedure: XR chest 1V XR chest 1V 11/08/2024 2:41 PM SIGNS AND SYMPTOMS: ^cough and ams, shortness of breath PROTOCOL: Frontal radiograph of the chest COMPARISON: 10/28/2024 FINDINGS: The trachea is midline. There is cardiomegaly. Mild perihilar vascular prominence is noted with interstitial prominence suspicious for congestive heart failure. The bony thorax is intact. XR/XR chest 1V IMPRESSION: There is cardiomegaly. Mild perihilar vascular prominence is noted with interstitial prominence suspicious for congestive heart failure. Impression dictated by: Josep Jacinto M.D. 11/08/2024 2:51 PM Dictation Location: [place] [address] Electronically authenticated by: [id number] Y Date: 11/08/2024 14:51
[2024-11-08 14:39] LABS: Hematocrit 39.6 % (42.0-54.0); Hemoglobin 13.2 g/dL (14.0-18.0); Immature Granulocytes Abs Auto 0.01 10^3/uL (0.00-0.03); Immature Granulocytes Pct Auto 0.2 % (0.0-0.5); Lymphocytes Absolute Auto 1.2 10^3/uL (1.2-3.8); Mean Corpuscular HGB Conc 33.3 g/dL (29.9-35.2); Mean Corpuscular Hemoglobin 28.7 pg (25.9-34.0); Mean Corpuscular Volume 86.1 fL (80.0-94.0); Platelet Count 213 10^3/uL (150-450); Red Blood Count 4.60 10^6/uL (4.70-6.10); White Blood Count 4.0 10^3/uL (4.0-11.0)
[2024-11-08 14:55] LABS: ABG PCO2 29.2 mmHg (35.0-45.0)
[2024-11-08 14:56] LABS: INR 1.08; Prothrombin Time 11.4 sec (9.0-11.6)
[2024-11-08 14:56] LABS: Allen Test POSITIVE (POSITIVE); HCO3 ABG 19.1 mmol/L (22.0-26.0); O2 Mode ROOM AIR; Oxygen Saturation ABG 91.6 %; Puncture Site R RAD
[2024-11-08 14:58] LABS: PO2 ABG 56.1 mmHg (80.0-100.0)
[2024-11-08 15:03] LABS: Lactate/Lactic Acid 1.5 mmol/L (0.4-2.0)
[2024-11-08 15:04] LABS: Alanine Aminotransferase 22 U/L (16-63); Albumin Globulin Ratio 1.1; Albumin Level 2.9 g/dL (3.4-5.0); Alkaline Phosphatase 108 U/L (46-116); Anion Gap 13.5; Aspartate Amino Transferase 14 U/L (15-37); Blood Urea Nitrogen 23.0 mg/dL (7.0-18.0); Calcium 8.1 mg/dL (8.5-10.1); Carbon Dioxide 22.7 mmol/L (21.0-32.0); Chloride 109 mmol/L (98-107); Estimated GFR (African America >60 (>=60 mL/min/1.73m^2); Estimated GFR (Non-African Ame 55 (>=60 mL/min/1.73m^2); Globulin 2.7 g/dL; Glucose 169 mg/dL (74-106); Magnesium 1.6 mg/dL (1.8-2.4); Potassium 3.2 mmol/L (3.5-5.1); Sodium 142 mmol/L (136-145); Total Protein 5.6 g/dL (6.4-8.2)
[2024-11-08 15:24] LABS: NT Pro B Type Natriuretic Pept 140.0 pg/mL (<=900.0)
--- NOTE | 2024-11-08 15:30 | ED.DIZZY1 ---
HPI - Dizziness General Chief Complaint: Syncope Stated Complaint: WEAKNESS Time Seen by Provider: 11/08/24 14:15 Source: family Mode of arrival: ambulance Limitations: no limitations History of Present Illness HPI Narrative: The patient is 64 years old male with history of left-sided weakness due to stroke 7 years ago relation to recent presentation with acute kidney injury and dehydration, patient is coming to the ER from his primary care doctor office after he had an episode where he had 10 minutes of loss of consciousness during which she had a pulse, according to the patient he woke up this morning feeling that his dizzy, the patient denies any nausea vomiting diarrhea or any other concerns He did have some headache as well associated with this episode, there was no chest pain at any time but the patient mentioned that he had been recently needing his oxygen 3 L all the time although he is supposed to be using it only when needed The patient had no chest pain at any time no abdominal pain no diarrhea or nausea or vomiting Related Data Home Medications ?Medication ?Instructions ?Recorded ?Confirmed amitriptyline 100 mg tablet 100 mg PO .QHS 10/15/23 10/28/24 atorvastatin 40 mg tablet 40 mg PO .QHS 10/15/23 10/28/24 budesonide 160 mcg-glycopyr 9 2 inh inhalation DAILY 10/15/23 10/28/24 mcg-formot 4.8 mcg/actuation HFA inhaler (Breztri Aerosphere) celecoxib 200 mg capsule 400 mg PO Q12H 10/15/23 10/28/24 folic acid 1 mg tablet 1 mg PO DAILY 10/15/23 10/28/24 methenamine hippurate 1 gram tablet 1 g PO BID 10/15/23 10/28/24 omeprazole 40 mg capsule,delayed 40 mg PO BID 10/15/23 10/28/24 release topiramate 100 mg tablet 100 mg PO DAILY 10/15/23 10/28/24 venlafaxine 150 mg 150 mg PO DAILY 10/15/23 10/28/24 capsule,extended release 24 hr fluticasone propionate 50 2 spray intranasal DAILY PRN nasal 10/30/23 10/28/24 mcg/actuation nasal congestion spray,suspension potassium chloride 20 mEq 20 meq PO BID 10/30/23 10/28/24 tablet,extended release(part/cryst) (Klor-Con M) topiramate 50 mg tablet 50 mg PO QAM 10/30/23 10/28/24 galcanezumab-gnlm 120 mg/mL 120 mg subcut .q21 days 09/05/24 10/28/24 subcutaneous pen injector (Emgality Pen) losartan 100 mg tablet 100 mg PO DAILY 09/05/24 10/28/24 oxycodone-acetaminophen 5 mg-325 0.5 tab PO Q12H PRN pain 09/05/24 10/28/24 mg tablet pregabalin 100 mg capsule 100 mg PO Q12H 09/05/24 10/28/24 topiramate 200 mg tablet 200 mg PO .COMPLEX 09/05/24 10/28/24 budesonide 0.5 mg/2 mL suspension 0.5 mg inhalation Q12H PRN 10/02/24 10/28/24 for nebulization shortness of breath or wheezing meclizine 12.5 mg tablet 12.5 mg PO DAILY PRN dizziness 10/02/24 10/28/24 sumatriptan succinate 100 mg tablet 100 mg PO Q2H PRN migraine headache 10/02/24 10/28/24 sumatriptan succinate 6 mg/0.5 mL 6 mg subcut Q2H PRN migraine 10/02/24 10/28/24 subcutaneous pen injector headache onabotulinumtoxinA 200 unit 240 unit subcut .q90 days 10/28/24 10/28/24 solution for injection (Botox) tezepelumab-ekko 210 mg/1.91 mL 210 mg subcut .q28 days 10/28/24 10/28/24 (110 mg/mL) subcutaneous pen injector (Tezspire) Allergies Allergy/AdvReac Type Severity Reaction Status Date / Time baclofen Allergy Severe Unknown Verified 10/02/24 00:37 ciprofloxacin (From Cipro) Allergy Severe Unknown Verified 10/02/24 00:37 indomethacin (From Indocin) Allergy Severe Unknown Verified 10/02/24 00:37 Penicillins Allergy Severe Unknown Verified 10/02/24 00:37 Sulfa (Sulfonamide Allergy Severe Unknown Verified 10/02/24 00:37 Antibiotics) propranolol Allergy Unknown Verified 10/02/24 00:37 Review of Systems ROS Status of ROS 10 or more systems reviewed and unremarkable except as noted in history and below [facility] Medical History (Updated 11/08/24 @ 15:41 by Reta Newman MD) Weakness ?R53.1 - Weakness (ICD-10) Left lower lobe pneumonia ?J18.9 - Pneumonia, unspecified organism (ICD-10) Enteritis ?K52.9 - Noninfective gastroenteritis and colitis, unspecified (ICD-10) Acute hypokalemia ?E87.6 - Hypokalemia (ICD-10) Septic shock ?A41.9 - Sepsis, unspecified organism (ICD-10) ?R65.21 - Severe sepsis with septic shock (ICD-10) Acute kidney injury ?N17.9 - Acute kidney failure, unspecified (ICD-10) 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 (ICD-10) Sepsis ?A41.9 - Sepsis, unspecified organism (ICD-10) Bacterial pneumonia ?J15.9 - Unspecified bacterial pneumonia (ICD-10) HLD (hyperlipidemia) ?E78.5 - Hyperlipidemia, unspecified (ICD-10) HTN (hypertension) ?I10 - Essential (primary) hypertension (ICD-10) Chronic respiratory failure with hypoxia ?J96.11 - Chronic respiratory failure with hypoxia (ICD-10) Vertigo ?R42 - Dizziness and giddiness (ICD-10) Concussion with loss of consciousness ?S06.0X9A - Concussion with loss of consciousness of unspecified duration, initial encounter (ICD-10) Stroke ?I63.9 - Cerebral infarction, unspecified (ICD-10) Depression ?F32.A - Depression, unspecified (ICD-10) Chronic migraine 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 (ICD-10) Asthma ?J45.909 - Unspecified asthma, uncomplicated (ICD-10) ILD (interstitial lung disease) ?J84.9 - Interstitial pulmonary disease, unspecified (ICD-10) Surgical History H/O laminectomy ?Z98.890 - Other specified postprocedural states (ICD-10) History of hip replacement, total ?Z96.649 - Presence of unspecified artificial hip joint (ICD-10) H/O: knee surgery ?Z98.890 - Other specified postprocedural states (ICD-10) Family History Father Family history of CHF (congestive heart failure) Family history of cancer Family history of myocardial infarction Mother Family history of COPD (chronic obstructive pulmonary disease) Family history of cancer Family history of hypertension Family history of myocardial infarction Family history of stroke Brother Family history of cancer Uncle Family history of cancer Aunt Family history of diabetes mellitus Social History (Updated 10/02/24 @ 08:06 by Ly Taveras RN) Within the past year, how often did you have a drink containing alcohol: never Score interpretation: A score less than 4 is consistent with normal alcohol consumption. Smoking status: Never smoker Non-prescribed substance use: denies use Previous occupational history: retired Highest level of school completed/degree received: Doctoral degree Are you now , , , , never or living with a partner: In a typical week, how many times do you talk on the telephone with family, friends, or neighbors: twice per week How often do you get together with friends or relatives: once per week How often do you attend christian or pentecostalism services: 4 or more times per year Do you belong to any clubs or organizations such as christian groups unions, fraternal or athletic groups, or school groups: yes Total score: 3 Score interpretation: A score of greater than or equal to 2 indicates the lowest level of social isolation. Little interest or pleasure in doing things: not at all Feeling down, depressed, or hopeless: not at all Feel stressed/tense/nervous/anxious/difficulty sleeping: to some extent Exam Narrative Exam Narrative: Nurses notes and vital signs reviewed and patient is not hypoxic. General: Well-appearing and in no apparent distress. Skin: Warm, dry, no pallor noted. No rash. Head: Normocephalic, atraumatic. Neck: Supple, non-tender. Eye: Pupils are equal, round and EOMI. No scleral icterus. Ears, Nose, Mouth, and Throat: TM are clear, no nasal mucosal hypertrophy. Oral mucosa is moist, no posterior oropharynx erythema, uvula is mid-line Cardiovascular: Regular Rate and Rhythm without murmur, gallop or rub. Respiratory: No accessory muscle use or respiratory distress. Lungs distant breathing sound and decreased air entry bilaterally in the bases Back: No midline thoracic or lumbar vertebral tenderness. No CVA tenderness Musculoskeletal: normal ROM, no calf or popliteal tenderness, no lower extremity edema/swelling GI: Abdomen is soft, non-distended. Normal bowel sounds. No masses appreciated. No tenderness to palpation. No rebound, guarding, or rigidity noted. Neurological: A&O x4. No cranial nerve dysfunction observed .left-sided weakness from previous stroke Constitutional Vital Signs, click to edit/add: Last Vital Signs Temp 97.7 F 11/08/24 14:16 Pulse 79 11/08/24 15:20 Resp 18 11/08/24 15:20 BP 100/67 11/08/24 15:00 Pulse Ox 86 L 11/08/24 15:27 O2 Del Method Room Air 11/08/24 15:27 Course Vital Signs Vital signs: Vital Signs Pulse Oximetry 92 L 11/08/24 14:15 Temperature 97.7 F 11/08/24 14:16 Pulse Rate 79 11/08/24 15:20 Respiratory Rate 18 11/08/24 15:20 Blood Pressure 100/67 11/08/24 15:00 Pulse Oximetry 86 L 11/08/24 15:27 Oxygen Delivery Method Room Air 11/08/24 15:27 MDM - Dizziness MDM Narrative Medical decision making narrative: The patient EKG upon arrival is showing sinus rhythm with a heart rate of [address] elevation or depression The patient CBC showed no acute significant pathology of the chemistry showing a creatinine 1.3 which is mildly elevated Patient already received 1 L of fluid before arrival The patient chest x-ray showed some congestion could be secondary to CHF and the patient BNP was not elevated It was noted that the patient history correlate with possibly hypotension as his blood pressure was low when evaluated in the primary care office when he was sitting up Here the patient blood pressure is adequately normal but he does have a history of hypertension and 105 systolic hypertension with the fact that he is taking losartan daily The patient CT of the head showed no acute pathology The patient was hypotensive in the primary care doctor office and right now blood pressure is within normal and the patient is not orthostatic but the patient will be admitted for observation His hypoxemia also could be secondary to CHF congestion although the patient BNP up is not elevated The patient case was discussed with and the patient will be admitted for observation overnight for syncopal episode The patient provided with IV magnesium and p.o. potassium Lab Data Labs: Lab Results 11/08/24 11/08/24 11/08/24 Range/Units 14:21 14:34 14:47 WBC 4.0 (4.0-11.0) 10^3/uL RBC 4.60 L (4.70-6.10) 10^6/uL Hgb 13.2 L (14.0-18.0) g/dL Hct 39.6 L (42.0-54.0) % MCV 86.1 (80.0-94.0) fL MCH 28.7 (25.9-34.0) pg MCHC 33.3 (29.9-35.2) g/dL RDW 14.6 (11.0-15.0) % Plt Count 213 (150-450) 10^3/uL MPV 9.4 L (9.5-13.5) fL Neut % (Auto) 60.2 (43.0-75.0) % Lymph % (Auto) 29.5 (20.5-60.0) % Bowie % (Auto) 8.2 (1.7-12.0) % Eos % (Auto) 0.7 L (0.9-7.0) % Baso % (Auto) 1.2 (0.2-2.0) % Neut # (Auto) 2.4 (1.4-6.5) 10^3/uL Lymph # (Auto) 1.2 (1.2-3.8) 10^3/uL Bowie # (Auto) 0.3 (0.3-0.8) 10^3/uL Eos # (Auto) 0.0 (0.0-0.7) 10^3/uL Baso # (Auto) 0.1 (0.0-0.1) 10^3/uL Abs Immat Gran (auto) 0.01 (0.00-0.03) 10^3/uL Imm/Tot Granulo (auto) 0.2 (0.0-0.5) % PT 11.4 (9.0-11.6) sec INR 1.08 Puncture Site R rad ABG pH 7.425 (7.350-7.450) ABG pCO2 29.2 L (35.0-45.0) mmHg ABG pO2 56.1 L* (80.0-100.0) mmHg ABG HCO3 19.1 L (22.0-26.0) mmol/L ABG O2 Saturation 91.6 % ABG Base Excess -5.3 L (-2.0-2.0) mmol/L Balbir Test Positive (POSITIVE) Sodium 142 (136-145) mmol/L Potassium 3.2 L (3.5-5.1) mmol/L Chloride 109 H (98-107) mmol/L Carbon Dioxide 22.7 (21.0-32.0) mmol/L Anion Gap 13.5 BUN 23.0 H (7.0-18.0) mg/dL Creatinine 1.31 H (0.70-1.30) mg/dL Est GFR ( Amer) >60 (>=60 mL/min/1.73m^2) Est GFR (Non-Af Amer) 55 L (>=60 mL/min/1.73m^2) BUN/Creatinine Ratio 17.6 Glucose 169 H (74-106) mg/dL Lactate 1.5 (0.4-2.0) mmol/L Calcium 8.1 L (8.5-10.1) mg/dL Magnesium 1.6 L (1.8-2.4) mg/dL Total Bilirubin 0.5 (0.2-1.0) mg/dL AST 14 L (15-37) U/L ALT 22 (16-63) U/L Alkaline Phosphatase 108 (46-116) U/L Troponin I High Sens 17.3 (4.0-76.1) pg/mL NT-Pro-B Natriuret Pep 140.0 (<=900.0) pg/mL Total Protein 5.6 L (6.4-8.2) g/dL Albumin 2.9 L (3.4-5.0) g/dL Globulin 2.7 g/dL Albumin/Globulin Ratio 1.1 POC Glucose 161 H (74-106) mg/dL Discharge Plan Discharge Chief Complaint: Syncope Clinical Impression: Hypomagnesemia, Syncope, Hypokalemia, Hypoxemia Patient Disposition: Admitted as Observation Time of Disposition Decision: 15:41
[2024-11-08] MEDS: MAGNESIUM SULFATE/D5W 1 GM/100 ML PREMIX IV (15:54)
[2024-11-08] MEDS: POTASSIUM BICARBONATE/CIT 25 MEQ TABLET EFF PO (15:54)
[2024-11-08 16:24] LABS: Magnesium 1.6 mg/dL (1.8-2.4)
[2024-11-08] MEDS: 0.9 % SODIUM CHLORIDE 1,000 ML 100 ML IV (16:41)
[2024-11-08] MEDS: ALBUMIN HUMAN 25 GM/100 ML PREMIX IV (16:41)
[2024-11-08] MEDS: ENOXAPARIN SODIUM 40 MG/0.4 ML SYRINGE SUBQ (17:16)
[2024-11-08] MEDS: IPRATROPIUM/ALBUTEROL SULFATE 3 ML AMPUL.NEB IH (20:15)
[2024-11-08] MEDS: PANTOPRAZOLE SODIUM 40 MG TABLET.DR PO (21:09)
[2024-11-08] MEDS: MAGNESIUM OXIDE 400 MG TABLET PO (21:09)
[2024-11-08] MEDS: ATORVASTATIN CALCIUM 40 MG TABLET PO (21:09)
[2024-11-08] MEDS: PREGABALIN 100 MG CAPSULE PO (21:09)
[2024-11-09] VITALS (22 sets, daily range): BP systolic 108–151; BP diastolic 64–89; PULSE 65–95; TEMP 36.4–37.1; O2SAT 91–95
[2024-11-09] MEDS: 0.9 % SODIUM CHLORIDE 1,000 ML 100 ML IV (02:48)
[2024-11-09] MEDS: MAGNESIUM OXIDE 400 MG TABLET PO ×3 (05:10→21:32)
[2024-11-09 05:50] LABS: Hematocrit 36.9 % (42.0-54.0); Hemoglobin 12.1 g/dL (14.0-18.0); Mean Corpuscular HGB Conc 32.8 g/dL (29.9-35.2); Mean Corpuscular Hemoglobin 28.7 pg (25.9-34.0); Mean Corpuscular Volume 87.6 fL (80.0-94.0); Platelet Count 178 10^3/uL (150-450); Red Blood Count 4.21 10^6/uL (4.70-6.10); White Blood Count 3.8 10^3/uL (4.0-11.0)
[2024-11-09 06:16] LABS: Alanine Aminotransferase 18 U/L (16-63); Albumin Globulin Ratio 1.5; Albumin Level 3.2 g/dL (3.4-5.0); Alkaline Phosphatase 86 U/L (46-116); Anion Gap 14.2; Aspartate Amino Transferase 14 U/L (15-37); Blood Urea Nitrogen 23.0 mg/dL (7.0-18.0); Calcium 8.2 mg/dL (8.5-10.1); Carbon Dioxide 24.2 mmol/L (21.0-32.0); Chloride 112 mmol/L (98-107); Estimated GFR (African America >60 (>=60 mL/min/1.73m^2); Estimated GFR (Non-African Ame >60 (>=60 mL/min/1.73m^2); Globulin 2.2 g/dL; Glucose 86 mg/dL (74-106); Potassium 3.4 mmol/L (3.5-5.1); Sodium 147 mmol/L (136-145); Total Protein 5.4 g/dL (6.4-8.2)
[2024-11-09 06:22] LABS: Magnesium 2.1 mg/dL (1.8-2.4)
--- NOTE | 2024-11-09 08:00 | ECG_ITS ---
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
[2024-11-09] MEDS: LOSARTAN POTASSIUM 25 MG TABLET PO (09:04)
[2024-11-09] MEDS: TOPIRAMATE 100 MG TABLET PO (09:04)
[2024-11-09] MEDS: PREGABALIN 100 MG CAPSULE PO ×2 (09:04→21:32)
[2024-11-09] MEDS: VENLAFAXINE HCL ER 150 MG CAPSULE PO (09:05)
[2024-11-09] MEDS: CARVEDILOL 12.5 MG TABLET PO ×2 (09:05→21:32)
[2024-11-09] MEDS: PANTOPRAZOLE SODIUM 40 MG TABLET.DR PO ×2 (09:05→21:32)
[2024-11-09] MEDS: ASPIRIN 81 MG TABLET.DR PO (09:05)
[2024-11-09] MEDS: FOLIC ACID 1 MG TABLET PO (09:05)
[2024-11-09] MEDS: POTASSIUM CHLORIDE 10 MEQ ER TABLET 40 MEQ PO (09:05)
--- NOTE | 2024-11-09 09:25 | SWNOTE1 ---
SW met with pt to discuss dc needs. Pt lives at home with his son. Pt does have a walker and cane that he does use at home. Pt voiced he does have home oxygen that he uses at night. He voiced it is from [facility] and it is 2.5 liters-3.5 liters. SW to call and check on this. Pt voiced he got home from rehab on October 17 and felt like he was doing alright. SW asked if he was set up with HH. He stated they were supposed to, but the HH company they tried to use ended up not accepting [employer]. Pt unsure if he will need it at discharge. SW to check if therapy is ordered. At this time no further questions.
--- NOTE | 2024-11-09 09:27 | SWNOTE1 ---
Medicare Outpatient Observation Notice reviewed and discussed with patient. Pt. verbalized understanding and signed the form. Original given to patient and copy placed in patient?s chart.
[2024-11-09] MEDS: IPRATROPIUM/ALBUTEROL SULFATE 3 ML AMPUL.NEB IH ×3 (09:30→21:08)
--- NOTE | 2024-11-09 09:35 | SWNOTE1 ---
JEFF called and spoke to Respiratory therapist at [facility]. Pt does have home oxygen from them. Prescription for 3 liters at night. She also stated back in 2019 they did prescribe him a cpap which was ordered from [facility]. It was an auto pap set at 5-15. She stated she does not see any data, so unsure if pt has been using. She stated she is going to follow up with him in a few days. JEFF let case management know.
--- NOTE | 2024-11-09 11:03 | PM.HP ---
HPI H&P: HPI History of Present Illness Chief complaint: WEAKNESS, SNYCOPE HYPOTENSION, HYPOMAGNESIUM Narrative: Mr. Bagley is a 64-year-old gentleman who was visiting his doctor yesterday when he felt dizzy and sick. He was noted to have a blood pressure in the 60s. He was rushed to the emergency room and confirmed to have hypotension. Patient reportedly passed out for a few seconds. No chest pain. No fever or chills. No focal weakness or numbness. No slurred speech. No change in mental status. Opioid HPI Opioid Management Most Recent Pain and Opioid Data: Last Pain Scale 3 Today, 10:00 Last Pain Assessment 11/08/24, 16:41 Last ORT Total Score 2 11/08/24, 16:41 Last ORT Risk Category Low Risk 11/08/24, 16:41 Review of Systems ROS Status of ROS 10 or more systems reviewed and unremarkable except as noted in history and below [facility] Medical History (Updated 11/09/24 @ 11:04 by Ketan Heard MD) Weakness ?R53.1 - Weakness (ICD-10) Left lower lobe pneumonia ?J18.9 - Pneumonia, unspecified organism (ICD-10) Enteritis ?K52.9 - Noninfective gastroenteritis and colitis, unspecified (ICD-10) Acute hypokalemia ?E87.6 - Hypokalemia (ICD-10) Septic shock ?A41.9 - Sepsis, unspecified organism (ICD-10) ?R65.21 - Severe sepsis with septic shock (ICD-10) Acute kidney injury ?N17.9 - Acute kidney failure, unspecified (ICD-10) 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 (ICD-10) Sepsis ?A41.9 - Sepsis, unspecified organism (ICD-10) Bacterial pneumonia ?J15.9 - Unspecified bacterial pneumonia (ICD-10) HLD (hyperlipidemia) ?E78.5 - Hyperlipidemia, unspecified (ICD-10) HTN (hypertension) ?I10 - Essential (primary) hypertension (ICD-10) Chronic respiratory failure with hypoxia ?J96.11 - Chronic respiratory failure with hypoxia (ICD-10) Vertigo ?R42 - Dizziness and giddiness (ICD-10) Concussion with loss of consciousness ?S06.0X9A - Concussion with loss of consciousness of unspecified duration, initial encounter (ICD-10) Stroke ?I63.9 - Cerebral infarction, unspecified (ICD-10) Depression ?F32.A - Depression, unspecified (ICD-10) Chronic migraine 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 (ICD-10) Asthma ?J45.909 - Unspecified asthma, uncomplicated (ICD-10) ILD (interstitial lung disease) ?J84.9 - Interstitial pulmonary disease, unspecified (ICD-10) Surgical History H/O laminectomy ?Z98.890 - Other specified postprocedural states (ICD-10) History of hip replacement, total ?Z96.649 - Presence of unspecified artificial hip joint (ICD-10) H/O: knee surgery ?Z98.890 - Other specified postprocedural states (ICD-10) Family History Father Family history of CHF (congestive heart failure) Family history of cancer Family history of myocardial infarction Mother Family history of COPD (chronic obstructive pulmonary disease) Family history of cancer Family history of hypertension Family history of myocardial infarction Family history of stroke Brother Family history of cancer Uncle Family history of cancer Aunt Family history of diabetes mellitus Social History (Updated 11/08/24 @ 17:18 by Marina Arellano) Within the past year, how often did you have a drink containing alcohol: never Score interpretation: A score less than 4 is consistent with normal alcohol consumption. Smoking status: Never smoker Non-prescribed substance use: denies use Previous occupational history: retired Known occupational exposures/hazards: No Highest level of school completed/degree received: Master's degree Do you want help with school or training: No Are you now , , , , never or living with a partner: In a typical week, how many times do you talk on the telephone with family, friends, or neighbors: twice per week How often do you get together with friends or relatives: once per week How often do you attend islam or episcopalian services: 4 or more times per year Do you belong to any clubs or organizations such as islam groups unions, fraternal or athletic groups, or school groups: yes Total score: 3 Score interpretation: A score of greater than or equal to 2 indicates the lowest level of social isolation. Little interest or pleasure in doing things: not at all Feeling down, depressed, or hopeless: not at all Feel stressed/tense/nervous/anxious/difficulty sleeping: to some extent Do you think of yourself as: straight/heterosexual Gender Identity: male Meds Home Medications and Allergies Home Medications ?Medication ?Instructions ?Recorded ?Confirmed ?Type amitriptyline 100 mg tablet 100 mg PO .QHS 10/15/23 11/08/24 History atorvastatin 40 mg tablet 40 mg PO .QHS 10/15/23 11/08/24 History budesonide 160 mcg-glycopyr 9 2 inh inhalation DAILY 10/15/23 11/08/24 History mcg-formot 4.8 mcg/actuation HFA inhaler (Breztri Aerosphere) celecoxib 200 mg capsule 400 mg PO Q12H 10/15/23 11/08/24 History folic acid 1 mg tablet 1 mg PO DAILY 10/15/23 11/08/24 History methenamine hippurate 1 gram tablet 1 g PO BID 10/15/23 11/08/24 History omeprazole 40 mg capsule,delayed 40 mg PO BID 10/15/23 11/08/24 History release topiramate 100 mg tablet 100 mg PO DAILY 10/15/23 11/08/24 History venlafaxine 150 mg 150 mg PO DAILY 10/15/23 11/08/24 History capsule,extended release 24 hr fluticasone propionate 50 2 spray intranasal DAILY PRN nasal 10/30/23 11/08/24 History mcg/actuation nasal congestion spray,suspension potassium chloride 20 mEq 20 meq PO BID 10/30/23 11/08/24 History tablet,extended release(part/cryst) (Klor-Con M) galcanezumab-gnlm 120 mg/mL 120 mg subcut .q21 days 09/05/24 11/08/24 History subcutaneous pen injector (Emgality Pen) losartan 100 mg tablet 100 mg PO DAILY 09/05/24 11/08/24 History oxycodone-acetaminophen 5 mg-325 0.5 tab PO Q12H PRN pain 09/05/24 11/08/24 History mg tablet pregabalin 100 mg capsule 100 mg PO Q12H 09/05/24 11/08/24 History topiramate 200 mg tablet 200 mg PO .COMPLEX 09/05/24 11/08/24 History budesonide 0.5 mg/2 mL suspension 0.5 mg inhalation Q12H PRN 10/02/24 11/08/24 History for nebulization shortness of breath or wheezing meclizine 12.5 mg tablet 25 mg PO BID PRN dizziness 10/02/24 11/08/24 History sumatriptan succinate 100 mg tablet 100 mg PO Q2H PRN migraine headache 10/02/24 11/08/24 History sumatriptan succinate 6 mg/0.5 mL 6 mg subcut Q2H PRN migraine 10/02/24 11/08/24 History subcutaneous pen injector headache tezepelumab-ekko 210 mg/1.91 mL 210 mg subcut .q28 days 10/28/24 11/08/24 History (110 mg/mL) subcutaneous pen injector (Tezspire) amlodipine 5 mg tablet 5 mg PO DAILY 11/08/24 11/08/24 History aspirin 81 mg tablet,delayed 81 mg PO DAILY 11/08/24 11/08/24 History release carvedilol 25 mg tablet 25 mg PO BID 11/08/24 11/08/24 History ketorolac 10 mg tablet 10 mg PO QID 11/08/24 11/08/24 History magnesium oxide 400 mg (241.3 mg 400 mg PO TID 11/08/24 11/08/24 History magnesium) tablet spironolactone 50 mg tablet 50 mg PO DAILY 11/08/24 11/08/24 History verapamil 120 mg tablet 120 mg PO DAILY 11/08/24 11/08/24 History Allergies Allergy/AdvReac Type Severity Reaction Status Date / Time baclofen Allergy Severe Unknown Verified 10/02/24 00:37 ciprofloxacin (From Cipro) Allergy Severe Unknown Verified 10/02/24 00:37 indomethacin (From Indocin) Allergy Severe Unknown Verified 10/02/24 00:37 Penicillins Allergy Severe Unknown Verified 10/02/24 00:37 Sulfa (Sulfonamide Allergy Severe Unknown Verified 10/02/24 00:37 Antibiotics) propranolol Allergy Unknown Verified 10/02/24 00:37 Exam Narrative Exam Narrative: [pt is awake and alert. oriented to place, time and person HEENT: [place] conjunctiva and NL buccal mucosa Neck: Supple, no tenderness Endocrine: No Thyromegaly. Vascular: No JVD or carotid bruit. Lymphatic: No cervical lymphadenopathy. Chest: CTA no DTP. Heart RRR, no extra sound or murmur. Abd: Soft, no tenderness, no rebound and no rigidity. Increase abd girth therefore clinically I could not exclude the possibility of intra abd mass or organomegaly. LE: No cyanosis or clubbing, no varices or edema. Neuro: A A O. Nl speech, comprehension and attention. Nl and symetrical motor and tone examination through out. []] Constitutional Vital Signs, click to edit/add: Last Vital Signs Temp 97.5 F L 11/09/24 08:14 Pulse 80 11/09/24 10:00 Resp 16 11/09/24 09:31 BP 140/89 11/09/24 10:49 Pulse Ox 94 L 11/09/24 09:31 O2 Del Method Room Air 11/09/24 09:31 O2 Flow Rate 3 11/08/24 23:24 Results Labs Labs: Short CBC 11/08/24 11/09/24 Range/Units 14:34 05:25 WBC 4.0 3.8 L (4.0-11.0) 10^3/uL Hgb 13.2 L 12.1 L (14.0-18.0) g/dL Hct 39.6 L 36.9 L (42.0-54.0) % Plt Count 213 178 (150-450) 10^3/uL BMP 11/08/24 11/09/24 14:34 05:25 Sodium 142 147 H Potassium 3.2 L 3.4 L Chloride 109 H 112 H Carbon Dioxide 22.7 24.2 BUN 23.0 H 23.0 H Creatinine 1.31 H 0.94 Glucose 169 H 86 Calcium 8.1 L 8.2 L Liver Function 11/08/24 11/09/24 Range/Units 14:34 05:25 Total Bilirubin 0.5 0.5 (0.2-1.0) mg/dL AST 14 L 14 L (15-37) U/L ALT 22 18 (16-63) U/L Alkaline Phosphatase 108 86 (46-116) U/L Albumin 2.9 L 3.2 L (3.4-5.0) g/dL ABG ABG results: 11/08/24 14:47 ABG pH 7.425 ABG pCO2 29.2 L ABG pO2 56.1 L* ABG HCO3 19.1 L ABG O2 Saturation 91.6 ABG Base Excess -5.3 L Assessment and Plan Assessment and Plan (1) Syncope: (2) Dehydration: (3) Hypokalemia: (4) Hypovolemic shock: (5) Cardiomyopathy: (6) Hypotension: Plan Hypovolemic shock associated with a syncopal episode and acute kidney injury. Blood pressure was in the 60s yesterday at the doctor's office systolic blood pressure was in the 90s when he arrived to the emergency room.. No clinical evidence of infection or sepsis. No clinical evidence of acute blood loss. Likely caused by dehydration, volume loss while patient taking aggressive blood pressure medication regimen including amlodipine, Coreg 25 twice daily, losartan 100 mg daily, spironolactone and verapamil 120 mg daily. I held all of his blood pressure medications yesterday. I resumed Coreg and losartan at lower dose IV fluid infusion overnight. Correction of his hypotension and KRISTA Acute kidney injury Resolved with IV fluid infusion, likely hemodynamically mediated. Syncope Likely secondary to above. No dysrhythmia on the monitor. No neurological deficit to suggest primary CARE DIRECTOR RN etiology. No convulsion to suggest seizure Hypertension Patient is on aggressive blood pressure medication regimen including beta-erika, diuretics, ARB and 2 calcium erika!!. Patient takes amlodipine and Cardizem. Simplify his regimen to reduce future episodes of hypotension, KRISTA and syncope Cardiomyopathy. EF reported at 45% No clinical evidence of fluid overload. Patient would need to be on GDMT including but not limited to beta-erika, ARNI, MRA however doses of this medication would need to be cautiously adjusted to prevent further episodes of hypotension. Not sure if patient had CAD investigation in the past. Patient is to follow-up with his PCP and cardiology Hypokalemia Potassium supplementation. Chronic medical conditions not listed above, incidental findings seen on labs and imaging. These would need to be addressed. Could be addressed when time and condition are appropriate. Could be addressed in the outpatient setting by PCP collaboration with other needed outpatient providers.
[2024-11-09] MEDS: OXYCODONE HCL/ACETAMINOPHEN 5MG/325MG 0.5 TAB PO (12:24)
[2024-11-09 16:25] LABS: Glucose Urine UA NEGATIVE (NEGATIVE)
[2024-11-09 16:29] LABS: Cast Seen? NONE SEEN #/LPF (NONE SEEN); Crystals Seen? None Seen #/HPF (None Seen); Urine Culture Indicated NO
--- NOTE | 2024-11-09 16:45 | PC.NURSE ---
Dr. Headr notified of pts PVR
[2024-11-09] MEDS: ENOXAPARIN SODIUM 40 MG/0.4 ML SYRINGE SUBQ (18:43)
[2024-11-09] MEDS: ATORVASTATIN CALCIUM 40 MG TABLET PO (21:32)
[2024-11-10] VITALS (12 sets, daily range): BP systolic 122–145; BP diastolic 78–88; PULSE 60–77; TEMP 36.5–36.8; O2SAT 92–95
[2024-11-10] MEDS: MAGNESIUM OXIDE 400 MG TABLET PO (05:15)
[2024-11-10] MEDS: PANTOPRAZOLE SODIUM 40 MG TABLET.DR PO (09:20)
[2024-11-10] MEDS: ASPIRIN 81 MG TABLET.DR PO (09:20)
[2024-11-10] MEDS: LOSARTAN POTASSIUM 25 MG TABLET PO (09:21)
[2024-11-10] MEDS: CARVEDILOL 12.5 MG TABLET PO (09:21)
[2024-11-10] MEDS: TOPIRAMATE 100 MG TABLET PO (09:21)
[2024-11-10] MEDS: VENLAFAXINE HCL ER 150 MG CAPSULE PO (09:21)
[2024-11-10] MEDS: PREGABALIN 100 MG CAPSULE PO (09:21)
[2024-11-10] MEDS: FOLIC ACID 1 MG TABLET PO (09:21)
[2024-11-10] MEDS: IPRATROPIUM/ALBUTEROL SULFATE 3 ML AMPUL.NEB IH (09:25)
--- NOTE | 2024-11-10 10:08 | PM.DS1 ---
DS: Providers Provider Date of admission: 11/08/24 16:29 Primary care physician: Raquel Rayo MD DS: Diagnosis Discharge Diagnosis (1) Syncope: (2) Dehydration: (3) Hypokalemia: (4) Hypovolemic shock: (5) Cardiomyopathy: (6) Hypotension: Plan As listed above and others that have not listed DS: Summary Hospital Course Hospital Course: Mr. Bagley is a 64-year-old gentleman who came in after he fainted for few seconds at the doctor's office. He was found to have the following: Hypovolemic shock associated with a syncopal episode and acute kidney injury. Blood pressure was in the 60s yesterday at the doctor's office systolic blood pressure was in the 90s when he arrived to the emergency room.. No clinical evidence of infection or sepsis. No clinical evidence of acute blood loss. Likely caused by dehydration, volume loss while patient taking aggressive blood pressure medication regimen including amlodipine, Coreg 25 twice daily, losartan 100 mg daily, spironolactone and verapamil 120 mg daily. I held all of his blood pressure medications yesterday. I resumed Coreg and losartan at lower dose Resolved with IV fluid infusion and holding some of his BP meds Acute kidney injury Resolved with IV fluid infusion, likely hemodynamically mediated. Resolved. Syncope Likely secondary to above. No dysrhythmia on the monitor. No neurological deficit to suggest primary DESKTOP SUPPORT CONSULTANT etiology. No convulsion to suggest seizure. Resolved Hypertension Patient is on aggressive blood pressure medication regimen including beta-erika, diuretics, ARB and 2 calcium erika!!. Patient takes amlodipine and Cardizem. Simplify his regimen to reduce future episodes of hypotension, KRISTA and syncope Cardiomyopathy. EF reported at 45% No clinical evidence of fluid overload. Patient would need to be on GDMT including but not limited to beta-erika, ARNI, MRA however doses of this medication would need to be cautiously adjusted to prevent further episodes of hypotension. Not sure if patient had CAD investigation in the past. Patient is to follow-up with his PCP and cardiology Chronic nocturnal hypoxemia for which patient uses oxygen at night. Currently his oxygen saturation is 95% on room air. No tachypnea. Hypokalemia and hypomagnesemia Status post potassium and magnesium supplementation. Chronic medical conditions not listed above, incidental findings seen on labs and imaging. These would need to be addressed. Could be addressed when time and condition are appropriate. Could be addressed in the outpatient setting by PCP collaboration with other needed outpatient providers. Patient has multiple complex medical issues as listed above and others that are not listed. All appear to be stable. I do not have any clear or strong clinical justification to extend inpatient hospitalization. Patient however will require close and frequent monitoring as well as additional work-up, investigation and therapeutic intervention that could take place from this point on post discharge. That is to prevent relapse, decompensation, rehospitalization and other medical implications. I instructed patient to ask her primary care doctor to obtain [facility] record entirely to address abnormalities seen on labs and imaging that I have and have not addressed during this hospitalization, follow-up on pending blood work, imaging and pathology is if available and to follow-up on needed medical care in the outpatient setting. Time Spent with Patient Time attestation: Total time spent providing and/or coordinating discharge services: Time spent: greater than 30 minutes Exam Narrative Exam Narrative: [pt is awake and alert. oriented to place, time and person HEENT: [place] conjunctiva and NL buccal mucosa Neck: Supple, no tenderness Endocrine: No Thyromegaly. Vascular: No JVD or carotid bruit. Lymphatic: No cervical lymphadenopathy. Chest: CTA no DTP. Heart RRR, no extra sound or murmur. Abd: Soft, no tenderness, no rebound and no rigidity. Increase abd girth therefore clinically I could not exclude the possibility of intra abd mass or organomegaly. LE: No cyanosis or clubbing, no varices or edema. Neuro: A A O. Nl speech, comprehension and attention. Nl and symetrical motor and tone examination through out. []] Constitutional Vital Signs, click to edit/add: Last Vital Signs Temp 97.7 F 11/10/24 08:25 Pulse 71 11/10/24 10:00 Resp 16 11/10/24 09:26 BP 140/84 11/10/24 09:19 Pulse Ox 95 11/10/24 09:26 O2 Del Method Room Air 11/10/24 09:26 O2 Flow Rate 3 11/08/24 23:24 DS: Data Data Completed and Pending Labs on day of discharge: Labs from last 24 hours 11/09/24 16:05 Urine Color Yellow Urine Clarity Clear Urine pH 6.0 Ur Specific [place] 1.025 Urine Protein Negative Urine Glucose (UA) Negative Urine Ketones Negative Urine Occult Blood Negative Urine Nitrite Negative Urine Bilirubin Negative Urine Urobilinogen 0.2 Ur Leukocyte Esterase Negative Urine RBC 0-2 Urine WBC None seen Ur Squamous Epith Cells Few A Urine Crystals None seen Urine Bacteria Trace A Urine Casts None seen Urine Mucus Small A Ur Culture Indicated? No Discharge Plan Discharge Disposition: Home Health Service Discharge Medications: New losartan 25 mg Tablet 25 mg PO QD Qty: 30 2RF Continued fluticasone propionate 50 mcg/actuation spray,suspension 2 spray intranasal DAILY PRN (Reason: nasal congestion) Rx Instructions: administer into each nostril potassium chloride [Klor-Con M20] 20 mEq tablet,ER particles/crystals 20 meq PO BID Emgality Pen 120 mg/mL pen injector 120 mg SUBCUT .q21 days oxycodone-acetaminophen 5-325 mg tablet 0.5 tab PO Q12H PRN (Reason: pain) pregabalin 100 mg capsule 100 mg PO Q12H topiramate 200 mg tablet 200 mg PO .COMPLEX Rx Instructions: 200 mg orally 5pm and qhs; budesonide 0.5 mg/2 mL suspension for nebulization 0.5 mg inhalation Q12H PRN (Reason: shortness of breath or wheezing) meclizine 12.5 mg tablet 25 mg PO BID PRN (Reason: dizziness) sumatriptan succinate 100 mg tablet 100 mg PO Q2H PRN (Reason: migraine headache) Rx Instructions: MAX 2 IN 24 HOURS sumatriptan succinate 6 mg/0.5 mL pen injector 6 mg SUBCUT Q2H PRN (Reason: migraine headache) Rx Instructions: MAX 12 MG / 24 HOURS amitriptyline 100 mg tablet 100 mg PO .QHS atorvastatin 40 mg tablet 40 mg PO .QHS Breztri Aerosphere 160-9-4.8 mcg/actuation HFA aerosol inhaler 2 inh INHALATION DAILY folic acid 1 mg tablet 1 mg PO DAILY methenamine hippurate 1 gram tablet 1 g PO BID omeprazole 40 mg capsule,delayed release(DR/EC) 40 mg PO BID venlafaxine 150 mg capsule,extended release 24hr 150 mg PO DAILY Tezspire 210 mg/1.91 mL (110 mg/mL) pen injector 210 mg SUBCUT .q28 days aspirin 81 mg tablet,delayed release (DR/EC) 81 mg PO DAILY carvedilol 25 mg tablet 25 mg PO BID magnesium oxide 400 mg (241.3 mg magnesium) tablet 400 mg PO TID spironolactone 50 mg tablet 50 mg PO DAILY Changed celecoxib 200 mg capsule 200 mg PO DAILY PRN (Reason: pain) Qty: 0 0RF Discontinued losartan 100 mg tablet 100 mg PO DAILY topiramate 100 mg tablet 100 mg PO DAILY amlodipine 5 mg tablet 5 mg PO DAILY ketorolac 10 mg tablet 10 mg PO QID verapamil 120 mg tablet 120 mg PO DAILY Print Language: Albanian Forms: Portal Instructions
[2024-11-10] MEDS: OXYCODONE HCL/ACETAMINOPHEN 5MG/325MG 0.5 TAB PO (10:35)
--- NOTE | 2024-11-11 13:26 | CM.DCFOLLOWU ---
1st attempt 11/11/24, no answer
--- NOTE | 2024-11-16 14:02 | CM.DCFOLLOWU ---
Person spoke with:patient How are you feeling?well How is your pain?none Did you understand your discharge instructions?yes Do you have any questions about your discharge instructions?no Were you given any prescriptions at discharge?yes Were you able to get your prescriptions filled?yes Do you understand how to take your medications as ordered?yes Do you have any questions about your follow up appointment and do you plan to keep your follow up appointment?no questions, had follow up today Is there anything else that you would like to discuss?no Questions/Comments/Concerns/Other:none
== END 2024-11-10 12:39 | disposition home or self-care (01) ==
LOC: ER 15:41 → MS 16:36
PROVIDERS: Admitting Provider Internal Medicine; Emergency Provider Emergency Medicine; PCP Family Medicine; Visit Provider Internal Medicine
DX: R57.1 Hypovolemic shock (principal); N17.9 Acute kidney failure, unspecified; R55 Syncope and collapse; E83.42 Hypomagnesemia; E87.6 Hypokalemia; R09.02 Hypoxemia; I95.9 Hypotension, unspecified; I69.354 Hemiplegia and hemiparesis following cerebral infarction affecting left non-dominant side; I10 Essential (primary) hypertension; Z96.649 Presence of unspecified artificial hip joint; I42.9 Cardiomyopathy, unspecified; Z79.899 Other long term (current) drug therapy
CPT/HCPCS: 36415; 36600; 51798; 70450; 71045; 80053; 81001; 82533; 82805; 83605; 83735; 83880; 84100; 84484; 85025; 85027; 85610; 93005; 94640; 94761; 96361; 96365; 96367; 96372; 99285; G0378; J1650; J3475; P9046

== ENCOUNTER 2024-11-11 07:35 | Outpatient (RCR) | payer MEDICARE, SELFPAY ==
[2024-11-11 09:08] VITALS: BP 149/87; PULSE 77; TEMP 36.6; O2SAT 96
[2024-11-11] MEDS: 0.9 % SODIUM CHLORIDE 500 ML IV (09:19)
[2024-11-11] MEDS: HYDROCORTISONE SODIUM SUCC PF 100 MG/2 ML VIAL 120 MG IV (09:30)
[2024-11-11] MEDS: IGA AVG IV (09:40)
[2024-11-11] MEDS: IMMUNE GLOBUL IV (09:40)
[2024-11-11] MEDS: GLY IV (09:40)
--- NOTE | 2024-11-11 09:44 | PC.NURSE ---
Gamunex infusion initiated at this time. Pt. denies c/o.
[2024-11-11 12:45] VITALS: BP 144/78; PULSE 71; TEMP 36.8; O2SAT 98
== END 2024-12-01 23:59 | disposition home or self-care (01) ==
LOC: INF 07:35
PROVIDERS: PCP Family Medicine
DX: D80.6 Antibody deficiency with near-normal immunoglobulins or with hyperimmunoglobulinemia (principal)
CPT/HCPCS: 96365; 96366; 96375; J1561; J1720

== ENCOUNTER 2024-12-05 08:30 | Outpatient (RCR) | payer MEDICARE, SELFPAY ==
[2024-12-05 09:37] VITALS: BP 179/95; PULSE 60; TEMP 36.1; O2SAT 97
[2024-12-05] MEDS: 0.9 % SODIUM CHLORIDE 250 ML 10 ML IV (09:55)
[2024-12-05] MEDS: HYDROCORTISONE SODIUM SUCC PF 100 MG/2 ML VIAL 120 MG IV (10:23)
[2024-12-05] MEDS: IMMUNE GLOBUL IV (10:28)
[2024-12-05] MEDS: GLY IV (10:28)
[2024-12-05] MEDS: IGA AVG IV (10:28)
[2024-12-05] MEDS: 0.9 % SODIUM CHLORIDE 250 ML 999 ML IV (12:31)
== END 2025-01-01 23:59 | disposition home or self-care (01) ==
LOC: INF 08:30
PROVIDERS: PCP Family Medicine; Visit Provider Allergy & Immunology
DX: D80.6 Antibody deficiency with near-normal immunoglobulins or with hyperimmunoglobulinemia (principal)
CPT/HCPCS: 96365; 96366; 96375; J1561; J1720

== ENCOUNTER 2025-01-04 09:11 | Outpatient (RCR) | payer MEDICARE, SELFPAY ==
[2025-01-04 09:35] VITALS: BP 150/83; PULSE 76; TEMP 36.4; O2SAT 95
[2025-01-04] MEDS: 0.9 % SODIUM CHLORIDE 250 ML 999 ML IV ×2 (09:52→12:12)
[2025-01-04] MEDS: HYDROCORTISONE SODIUM SUCC PF 100 MG/2 ML VIAL 120 MG IV (09:56)
[2025-01-04] MEDS: GLY IV (10:11)
[2025-01-04] MEDS: IMMUNE GLOBUL IV (10:11)
[2025-01-04] MEDS: IGA AVG IV (10:11)
[2025-01-04 10:13] LABS: Alanine Aminotransferase 15 U/L (16-63); Albumin Globulin Ratio 0.9; Albumin Level 3.3 g/dL (3.4-5.0); Alkaline Phosphatase 125 U/L (46-116); Anion Gap 13.0; Aspartate Amino Transferase 10 U/L (15-37); Blood Urea Nitrogen 26.0 mg/dL (7.0-18.0); Calcium 8.2 mg/dL (8.5-10.1); Carbon Dioxide 23.5 mmol/L (21.0-32.0); Chloride 109 mmol/L (98-107); Estimated GFR (African America >60 (>=60 mL/min/1.73m^2); Estimated GFR (Non-African Ame >60 (>=60 mL/min/1.73m^2); Globulin 3.6 g/dL; Glucose 138 mg/dL (74-106); Potassium 3.5 mmol/L (3.5-5.1); Sodium 142 mmol/L (136-145); Total Protein 6.9 g/dL (6.4-8.2)
--- NOTE | 2025-01-04 10:36 | PC.NURSE ---
Tolerating infusion without c/o. Ordered food tray. IV site clear.
--- NOTE | 2025-01-04 12:23 | PC.NURSE ---
1212: Transfusion completed without s&s of adverse reaction. IV NS initiated at this time.
[2025-01-05 04:07] LABS: Immunoglobulin G, Qn 1148 mg/dL (603-1613)
== END 2025-01-31 23:59 | disposition home or self-care (01) ==
LOC: INF 09:11
PROVIDERS: PCP Family Medicine; Visit Provider Allergy & Immunology
DX: D80.6 Antibody deficiency with near-normal immunoglobulins or with hyperimmunoglobulinemia (principal)
CPT/HCPCS: 36415; 80053; 82784; 96365; 96366; 96375; J1561; J1720

== ENCOUNTER 2025-02-03 08:44 | Outpatient (OUT) | payer MEDICARE, SELFPAY ==
--- OUTSIDE RECORDS SUMMARY | 2025-01-23 08:06 | XMS_ITS | Encounter Summary ---
Author Organization [facility] Address [address] [place] [address] Phone Care Team Providers Care Bookkeeping Teacher Name Role Phone Raquel Rayo MD Primary Care Provider [phone] Courtney Mayfield MD Unavailable [phone] Reason for Referral * PFT (Routine) - Pending Review Specialty Diagnoses / Procedures Referred By Contac t Referred To Contact Diagnoses ILD (interstitial lung disease) (Multi) Procedures Pulmonary Stress Test (6 Min. Walk) Mina Betts MD MPH [address] [place] [address] Phone: tel: fax: Referral ID Status Reason Start Date Expiration Date V isits Requested Visits Authorized [id number] Pending Review 07/25/2024 07/25/2025 1 1 * PFT (Routine) - Pending Review Specialty Diagnoses / Procedures Referred By Contac t Referred To Contact Diagnoses ILD (interstitial lung disease) (Multi) Procedures Complete Pulmonary Function Test Pre/Post Bronchodilator (Spirometry Pre/Post/DLCO/Lung Volumes) Mina Betts MD MPH [address] [place] [address] Phone: tel: fax: Referral ID Status Reason Start Date Expiration Date V isits Requested Visits Authorized [id number] Pending Review 07/25/2024 07/25/2025 1 1 Reason for Visit * PFT (Routine) - Pending Review Specialty Diagnoses / Procedures Referred By Kings t Referred To Contact Diagnoses ILD (interstitial lung disease) (Multi) Procedures Complete Pulmonary Function Test Pre/Post Bronchodilator (Spirometry Pre/Post/DLCO/Lung Volumes) Mina Betts MD MPH [address] [place] [id number] Phone: tel: fax: Referral ID Status Reason Start Date Expiration Date V isits Requested Visits Authorized [id number] Pending Review 07/25/2024 07/25/2025 1 1 Encounter Details Date Type Department Care Team (Latest Contact Info) Description 01/23/2025 8:06 AM EDT - 01/23/2025 11:59 PM EDT Hospital Encounter [address] [address] ILD (interstitial lung disease) (Multi) Discharge Disposition: Home Social History Tobacco Use Types Packs/Day Years [...] from your doctor or pharmacy? Sometimes 01/02/2024 [facility] Utilities Answer Date Recorded In the past 12 months has [employer], [employer], oil, or water adhoclabs threatened to shut off services in your home? Yes 01/02/2024 Social Connection and Isolation Panel Answer Date Recorded In a typical week, how many times do you talk on the phone with family, friends, or neighbors? Twice a week 07/24/2024 How often do you get togethe r with friends or relatives? Twice a week 07/24/2024 How often do you attend chur or scientologist services? More than 4 times per year 07/24/2024 Do you belong to any clubs o r organizations such as orthodox groups, unions, fraternal or athletic groups, or [...] Date Recorded Patient Health Questionnaire-2 Score 0 12/19/2024 [facility] of Occupat ional [facility] - Occupational Stress Questionnaire Answer Date Recorded [...] any time in the past 12 m [facility], were you homeless or living in a senior living (including now)? No 07/24/2024 Sex and Gender Information Value Date Recorded Sex Assigned at Not on file Legal Sex Male 11:51 PM EST Gender Identity Not on file Sexual Orientation Not on file documented as of this encounter Functional Status * Communicable Disease Screening Question Answer Date of Assessment Author Do you have any of the following new or worsening symptoms? None of these 01/23/2025 8:02 AM Teri Carmichael documented as of this encounter Medications at Time of Discharge albuterol 90 mcg/actuation inhaler every 4 hours. amitriptyline (Elavil) 100 mg tabletIndications: Chronic migraine without aura without status migrainosus, not intractable TAKE 1 TABLET BY MOUTH EVERYDAY AT BEDTIME 90 tablet 1 12/05/2024 amLODIPine (Norvasc) 5 mg tablet Take 1 tablet (5 mg) by mouth once daily. 08/02/2019 aspirin 81 mg EC tablet Take 2 tablets (162 mg) by mouth early in the morning.. 10/05/2024 atorvastatin (Lipitor) 40 mg tablet Take 1 tablet (40 mg) by mouth once daily. azithromycin (Zithromax) 500 mg tabletIndications: Asthma with chronic obstructive pulmonary disease (COPD) (Multi) Take 1 pill Thursday, Thursday and Thursday 12 tablet 5 09/14/2024 budesonide-glycopy r-formoterol (Breztri Aerosphere) 160-9-4.8 mcg/actuation HFA aerosol inhalerIndications :Asthma, severe persistent, poorly-controlled, with acute exacerbation (Multi) Inhale 2 puffs 2 times a day. 10.7 g 11 06/25/2023 carvedilol (Coreg) 25 mg tablet 2 times a day. 11/05/2024 cloNIDine (Catapres) 0.1 mg tablet Take 1 tablet (0.1 mg) by mouth 2 times a day. 06/17/2019 fluticasone (Flonase) 50 mcg/actuation nasal spray Administer 2 sprays into each nostril once daily. 2019 galcanezumab (Emgality Pen) 120 mg/mL auto-injectorIndic ations:Chronic migraine without aura, intractable, with status migrainosus Inject 120 mg (1 pen) under the skin every 28 (twenty-eight) days. 1 each 6 01/24/2025 5:20 PM EDT 12/16/2024 Gamunex-C 40 gram/400 mL (10 %) solution 09/05/2022 HYDROcodone-acetam inophen ([place]) 5-325 mg tablet Take 1 tablet by mouth every 8 hours if needed for pain. 11/22/2024 levalbuterol (Xopenex) 45 mcg/actuation inhalerIndications :Asthma with chronic obstructive pulmonary disease (COPD) (Multi) Inhale 1-2 puffs every 6 hours if needed for wheezing. 45 g 02/16/2024 losartan (Cozaar) 25 mg tablet Take 1 tablet (25 mg) by mouth once daily. magnesium oxide (Mag-Ox) 400 mg (241.3 mg elemental) tablet Take 1 tablet by mouth 3 times a day. 10/05/2024 meclizine (Antivert) 12.5 mg tabletIndications: Dizziness TAKE 1 TABLET BY MOUTH IF NEEDED FOR DIZZINESS 30 tablet 3 10/10/2024 methenamine hippurate (Hiprex) 1 gram tablet Take 1 tablet (1 g) by mouth 2 times a day. omeprazole (PriLOSEC) [address] capsuleIndications :Gastro-esophageal reflux disease without esophagitis TAKE 1 CAPSULE BY MOUTH EVERY 12 HOURS 180 capsule 3 11/23/2024 ondansetron (Zofran) 4 mg tablet Take 2 tablets (8 mg) by mouth every 8 hours if needed for nausea or vomiting. 07/03/2020 oxygen (O2) gas therapy 3.5 L/min. 11/27/2022 potassium chloride CR 20 mEq ER tablet Take 1 tablet (20 mEq) by mouth 2 times a day. 04/13/2019 pregabalin (Lyrica) 100 mg capsule Take 1 capsule (100 mg) by mouth twice a day. spironolactone (Aldactone) 50 mg tablet Take 1 tablet (50 mg) by mouth once daily. 02/11/2023 SUMAtriptan (Imitrex) 100 mg tabletIndications: Chronic migraine without aura without status migrainosus, not intractable Take 1 tablet (100 mg) by mouth 1 time if needed for migraine for up to 108 doses. No more than 2 triptan medications in 24 hours. 27 tablet 3 04/07/2024 SUMAtriptan (Imitrex) 6 mg/0.5 mL injectionIndicatio ns:Chronic migraine without aura without status migrainosus, not intractable Inject 0.5 mL (6 mg) under the skin if needed for migraine (Take at the onset of migraine pain. If ineffective, may repeat dose in 1 hour. Limit 12 mg (2 injections) per day). No more than 2 triptan medications in 24 hours. 3 mL 11 2025 4:11 PM EDT 01/16/2025 6 tezepelumab-ekko (Tezspire) SubQ Pen InjectorIndication s:Asthma with chronic obstructive pulmonary disease (COPD) (Multi) Inject 1 pen (210 mg) under the skin every 28 (twenty-eight) days. 1.91 mL 5 01/24/2025 5:20 PM EDT 09/22/2024 5 topiramate (Topamax) 100 mg tabletIndications: Chronic migraine without aura without status migrainosus, not intractable Take 1 tablet (100 mg) by mouth 2 times a day. (Take 100 mg with 50 mg dose at bedtime). 180 tablet 11/16/2024 5 topiramate (Topamax) 50 mg tabletIndications: Chronic migraine without aura without status migrainosus, not intractable Take 1 tablet (50 mg) by mouth once daily at bedtime. (Take 50mg with 100 mg dose at bedtime). 90 tablet 11/16/2024 5 venlafaxine XR (Effexor-XR) 150 mg 24 hr capsuleIndications :Chronic migraine without aura without status migrainosus, not intractable Take 1 capsule (150 mg) by mouth once daily. Do not crush or chew. 90 capsule 1 01/20/2025 celecoxib (CeleBREX) 200 mg capsuleIndications :Chronic migraine without aura without status migrainosus, not intractable TAKE 2 CAPSULES BY MOUTH TWICE A DAY 360 capsule 1 08/10/2024 documented as of this encounter Plan of Treatment Upcoming Encounters Date Type Department Care Team (Late st Contact Info) Description 02/08/2025 11:20 AM EDT Procedure Visit [facility] [address] [place] [address] Jodie Matthews MD [address] [place], [place] [phone] 02/14/2025 11:00 AM EDT Office Visit Isabela Morgan [address] [place] [address] Mina Betts MD MPH [address] [place] [address] 02/17/2025 11:30 AM EDT Telemedicine [facility] [address] [place] [address] Leonila Kern, REFRIGERATOR CAR ICER-DISABILITY ADVOCATE [address] [facility], [facility] [address] [place] [address] 04/24/2025 2:45 PM EST Office Visit [facility] [address] [facility] [address] [place] [address] Courtney Mayfield MD [address] [facility], [facility] [address] [place] [address] 06/21/2025 10:30 AM EST Office Visit [facility] [address] [place] [address] Jessica Moore, REFRIGERATOR CAR ICER-DISABILITY ADVOCATE [address] [place], [place] [phone] documented as of this encounter Procedures Procedure Name Priority Date/Time Associated Diagnosis Comments PULMONARY STRESS TEST (6 MIN. WALK) Routine 01/23/2025 9:35 AM EDT ILD (interstitial lung disease) (Multi) HC SIX MINUTE WALK Routine 01/23/2025 9: 35 AM EDT ILD (interstitial lung disease) (Multi) documented in this encounter Results * Pulmonary Stress Test (6 Min. Walk) (01/23/2025 9:35 AM EDT) 01/23/2025 9:29 AM EDT 01/23/2025 9:29 AM EDT Mian Betts MD MPH PFT ORDERABLES Final R esult Performing Organization Address City/[facility] [address]/[facility] Co de Phone Number [facility] * Complete Pulmonary Function Test Pre/Post Bronchodilator (Spirometry Pre/Post/DLCO/Lung Volumes) (01/23/2025 9:35 AM EDT) [facility] FVC Predicted 4.07 [facility] FEV1 - Predicted 3.14 [facility] FVC - PRE 3.20 [facility] FEV1 - Pre 2.64 [facility] FVC - Post 3.41 [facility] FEV1 - Post 2.88 [facility] 01/23/2025 8:22 AM EDT 01/23/2025 8:22 AM EDT Mina Betts MD MPH PFT ORDERABLES Final R esult [facility] documented in this encounter Visit Diagnoses Diagnosis ILD (interstitial lung disease) (Multi) Postinflammatory pulmonary fibrosis documented in this encounter Administered Medications Inactive Administered Medications - up to 3 most recent administrations Medication Order MAR Action Action Date Dose Rate Site albuterol 90 mcg/actuation inhaler 4 puff 4 puff, inhalation, Once, On 01/23/25 at 0900, For 1 dose, PFT Medication Orders, Shake well before use. Given 01/23/2025 8:34 AM EDT 4 puffs documented in this encounter Additional Health Concerns Assessment Noted Time PHQ-9 Depression Total Score: 23 025 11:53 AM EDT A fall risk assessment has been complete d for the patient 12/19/2024 11:43 AM EDT documented as of this encounter Care Teams Bookkeeping Teacher Relationship Specialty Start Date End Date Raquel Rayo MD [address] [place] [address] [place] [address] PCP - General 09/19/10 Courtney Mayfield MD [address] [facility], [place] [address] [place] [id number] Referring Physician Allergy and Immunology 02/12/24 documented as of this encounter
--- OUTSIDE RECORDS SUMMARY | 2025-02-03 08:50 | XMS_ITS | Encounter Summary ---
Author Organization [facility] Address [address] [place] [address] Phone Care Team Providers Care Windshield Technician Name Role Phone Raquel Rayo MD Primary Care Provider [phone] Courtney Mayfield MD Unavailable Encounter Details Date Type Department Care Team (Late st Contact Info) Description 03/31/2023 Scanned Document [facility] [address] [facility] [address] [place] [address] Courtney Mayfield MD 960 [facility], [facility] [address] [place], [place] [phone] Social History Tobacco Use Types Packs/Day Years [...] Description 02/08/2025 11:20 AM EDT [facility] [address] [place] [address] Jodie Matthews MD [address] [place], [place] [phone] 02/14/2025 11:00 AM EDT Office Visit Isabela Mitch Eddie [address] [place] [address] Mina Betts MD MPH [address] [place] [address] 02/17/2025 11:30 AM EDT Telemedicine [facility] [address] [place] [address] Leonila Kern CUT ORDER HAND-CHIEF HYDROELECTRIC STATION OPERATOR [address] [facility], [facility] [address] [place] [address] 04/24/2025 2:45 PM EST Office Visit [facility] [address] [facility] [address] [place] [address] Courtney Mayfield MD [address] [facility], [facility] [address] [place], [place] [phone] 06/21/2025 10:30 AM EST Office Visit [facility] [address] [place] [address] Jessica Moore, CUT ORDER HAND-CHIEF HYDROELECTRIC STATION OPERATOR [address] [place], [place] [phone] documented as of this encounter Visit Diagnoses Not on filedocumented in this encounter Additional Health Concerns Assessment Noted Time PHQ-9 Depression Total Score: 11 023 10:35 AM EDT A fall risk assessment has been complete d for the patient 02/16/2023 10:23 AM EDT documented as of this encounter Care Teams Windshield Technician Relationship Specialty Start Date End Date Raquel Rayo MD [address] [place] [address] [place] [address] PCP - General 09/19/10 Courtney Mayfield MD [address] [place] [address], [facility] [address] [place] [phone] Referring Physician Allergy and Immunology 02/12/24 documented as of this encounter
--- OUTSIDE RECORDS SUMMARY | 2025-02-03 08:50 | XMS_ITS | Encounter Summary ---
Author Organization [facility] Address [address] [place] [address] Phone Care Team Providers Care Preventive Medicine Physician Name Role Phone Raquel Rayo MD Primary Care Provider [phone] Courtney Mayfield MD Unavailable [phone] Encounter Details Date Type Department Care Team (Late st Contact Info) Description 04/10/2023 Scanned Document [facility] [address] [facility] [address] [place] [address] Courtney Mayfield MD 960 [facility], [facility] [address] [place], [place] [phone] Social History Tobacco Use Types Packs/Day Years [...] Description 02/08/2025 11:20 AM EDT Procedure Visit [facility] [address] [place] [address] Jodie Matthews MD [address] [place], [place] [phone] 02/14/2025 11:00 AM EDT Office Visit Isabela Mitch Eddie [address] [place] [address] Mina Betts MD MPH [address] [place] [address] 02/17/2025 11:30 AM EDT Telemedicine [facility] [address] [place] [address] Leonila Kern MATH INSTRUCTOR-AGENCY SERVICE REPRESENTATIVE [address] [facility], [facility] [address] [place] [address] 04/24/2025 2:45 PM EST Office Visit [facility] [address] [facility] [address] [place] [address] Courtney Mayfield MD [address] [facility], [facility] [address] [place], [place] [phone] 06/21/2025 10:30 AM EST Office Visit [facility] [address] [place] [address] Jessica Moore, MATH INSTRUCTOR-AGENCY SERVICE REPRESENTATIVE [address] [place], [place] [phone] documented as of this encounter Visit Diagnoses Not on filedocumented in this encounter Additional Health Concerns Assessment Noted Time PHQ-9 Depression Total Score: 11 023 10:35 AM EDT A fall risk assessment has been complete d for the patient 02/16/2023 10:23 AM EDT documented as of this encounter Care Teams Preventive Medicine Physician Relationship Specialty Start Date End Date Raquel Rayo MD [address] [place] [address] [place] [address] PCP - General 09/19/10 Courtney Mayfield MD [address] [place] [address], [facility] [address] [place] [phone] Referring Physician Allergy and Immunology 02/12/24 documented as of this encounter
--- OUTSIDE RECORDS SUMMARY | 2025-02-03 08:50 | XMS_ITS | Encounter Summary ---
Author Organization [facility] Address [address] [place] [address] Phone Care Team Providers Care Configuration Technician Name Role Phone Raquel Rayo MD Primary Care Provider [phone] Courtney Mayfield MD Unavailable Encounter Details Date Type Department Care Team (Late st Contact Info) Description 03/17/2023 Scanned Document [facility] [address] [facility] [address] [place] [address] Courtney Mayfield MD [address] [facility], [facility] [address] [place], [place] [phone] Social History Tobacco Use Types Packs/Day Years [...] Description 02/08/2025 11:20 AM EDT Procedure Visit [facility] [address] [place] [address] Jodie Matthews MD [address] [place], [place] [phone] 02/14/2025 11:00 AM EDT Office Visit Isabelasahil Meyer Eddie [address] [place] [phone] Mina Betts MD MPH [address] [place] [address] 02/17/2025 11:30 AM EDT Telemedicine [facility] [address] [place] [address] Leonila Kern, TICK ERADICATOR-VAULT PERSON [address] [facility], [facility] [address] [place] [address] 04/24/2025 2:45 PM EST Office Visit [facility] [address] [facility] [address] [place] [address] Courtney Mayfield MD [address] [facility], [facility] [address] [place], [place] [phone] 06/21/2025 10:30 AM EST Office Visit [facility] [address] [place] [address] Jessica Moore, TICK ERADICATOR-VAULT PERSON [address] [place], [place] [phone] documented as of this encounter Visit Diagnoses Not on filedocumented in this encounter Additional Health Concerns Assessment Noted Time PHQ-9 Depression Total Score: 11 023 10:35 AM EDT A fall risk assessment has been complete d for the patient 02/16/2023 10:23 AM EDT documented as of this encounter Care Teams Configuration Technician Relationship Specialty Start Date End Date Raquel Rayo MD [address] [place] [address] [place] [address] PCP - General 09/19/10 Courtney Mayfield MD [address] [place] [address], [facility] [address] [place] [address] Referring Physician Allergy and Immunology 02/12/24 documented as of this encounter
--- OUTSIDE RECORDS SUMMARY | 2025-02-03 08:50 | XMS_ITS | Encounter Summary ---
Author Organization [facility] Address [address] [place] [address] Phone Care Team Providers Care Ship'S Officer Name Role Phone Raquel Rayo MD Primary Care Provider [phone] Courtney Mayfield MD Unavailable [phone] Encounter Details Date Type Department Care Team (Late st Contact Info) Description 04/13/2023 Scanned Document [facility] [address] [place] [address] Courtney Mayfield MD 960 [facility], [facility] [address] [place], [place] [phone] Social History Tobacco Use Types Packs/Day Years [...] AM EST documented as of this encounter Functional Status * Question Answer Date of Assessment Author BP 128/74 04/15/2023 11:37 AM EST Angela Ortiz MA * Communicable Disease Screening Question Answer Date of Assessment Author Do you have any of the follo wing new or worsening symptoms? None of these 04/15/2023 11:35 AM EST Chiqui Harmon sa aHrpal documented as of this encounter Plan of Treatment Upcoming Encounters Date Type Department Care Team (Late st Contact Info) Description 02/08/2025 11:20 AM EDT Procedure Visit [facility] [address] [place] [address] Jodie Matthews MD [address] [place] [address] 02/14/2025 11:00 AM EDT Office Visit Isabelasahil Meyer Eddie [address] [place] [address] Mina Betts MD MPH [address] [place] [address] 02/17/2025 11:30 AM EDT Telemedicine [facility] Recovery [facility] [address] [place] [address] Leonila Kern, PARACHUTE LINE TIER-FOUNTAIN JERK [address] [facility], [facility] [address] [place] [address] 04/24/2025 2:45 PM EST Office Visit [facility] [address] [facility] [address] [place] [address] Courtney Mayfield MD [address] [facility], [facility] [address] [place] [address] 06/21/2025 10:30 AM EST Office Visit [facility] [address] [place] [address] Jessica Moore, PARACHUTE LINE TIER-FOUNTAIN JERK [address] [place] [address] documented as of this encounter Visit Diagnoses Not on filedocumented in this encounter Additional Health Concerns Assessment Noted Time PHQ-9 Depression Total Score: 11 023 10:35 AM EDT A fall risk assessment has been complete d for the patient 02/16/2023 10:23 AM EDT documented as of this encounter Care Teams Ship'S Officer Relationship Specialty Start Date End Date Raquel Rayo MD [address] [place] [address] [place] [address] PCP - General 09/19/10 Courtney Mayfield MD [address] [place] [address], [facility] [address] [place] [address] Referring Physician Allergy and Immunology 02/12/24 documented as of this encounter
--- OUTSIDE RECORDS SUMMARY | 2025-02-03 08:50 | XMS_ITS | Encounter Summary ---
Author Organization [facility] Address [address] [place] [address] Phone Care Team Providers Care Finished Goods Planner Name Role Phone Raquel Rayo MD Primary Care Provider [phone] Courtney Mayfield MD Unavailable [phone] Encounter Details Date Type Department Care Team (Late st Contact Info) Description 03/30/[address] [facility] [address] [facility] 2100 [place] [address] Courtney Mayfield MD 960 [facility], [facility] 2100 [place], [place] [id number] Social History Tobacco Use Types Packs/Day Years [...] Description 02/08/2025 11:20 AM EDT Procedure Visit [facility] [address] [place] [address] Jodie Matthews MD [address] [place], [place] [phone] 02/14/2025 11:00 AM EDT Office Visit Isabela Mitch Eddie [address] [place] [address] Mina Betts MD MPH [address] [place] [address] 02/17/2025 11:30 AM EDT Telemedicine [facility] [address] [place] [address] Leonila Kern PLATE FORMER-HELP DESK TECHNICIAN [address] [facility], [facility] 130 [place] [address] 04/24/2025 2:45 PM EST Office Visit [facility] [address] [facility] 2[address] [place] [address] Courtney Mayfield MD [address] [facility], [facility] [address] [place], [place] [phone] 06/21/2025 10:30 AM EST Office Visit [facility] [address] [place] [address] Jessica Moore, PLATE FORMER-HELP DESK TECHNICIAN [address] [place], [place] [phone] documented as of this encounter Visit Diagnoses Not on filedocumented in this encounter Additional Health Concerns Assessment Noted Time PHQ-9 Depression Total Score: 11 023 10:35 AM EDT A fall risk assessment has been complete d for the patient 02/16/2023 10:23 AM EDT documented as of this encounter Care Teams Finished Goods Planner Relationship Specialty Start Date End Date Raquel Rayo MD [address] [place] [address] [place] [address] PCP - General 09/19/10 Courtney Mayfield MD [address] [place] [address], [facility] [address] [place] [id number] Referring Physician Allergy and Immunology 02/12/24 documented as of this encounter
--- OUTSIDE RECORDS SUMMARY | 2025-02-03 08:50 | XMS_ITS | Encounter Summary ---
Author Organization [facility] Address [address] [place] [address] Phone Care Team Providers Care Human Resources Operations Director Name Role Phone Raquel Rayo MD Primary Care Provider [phone] Courtney Mayfield MD Unavailable Encounter Details Date Type Department Care Team (Late st Contact Info) Description 04/09/2023 Scanned Document [facility] [address] [facility] 160 [place] [address] Courtney Mayfield MD 960 [facility], [place] [address] [place], [place] [id number] Social History Tobacco Use Types Packs/Day Years [...] Description 02/08/2025 11:20 AM EDT Procedure Visit [facility] [address] [place] [address] Jodie Matthews MD [address] [place], [place] [phone] 02/14/2025 11:00 AM EDT Office Visit Isabela Mitch Eddie [address] [place] [address] Mina Betts MD MPH [address] [place] [address] 02/17/2025 11:30 AM EDT Telemedicine [facility] [address] [place] [address] Leonila Kern, SCREEN PRINTING MACHINE OPERATOR-ISOTOPE TECHNOLOGIST [address] [facility], [facility] 130 [place] [address] 04/24/2025 2:45 PM EST Office Visit [facility] [address] [facility] [address] [place] [address] Courtney Mayfield MD [address] [facility], [facility] [address] [place], [place] [phone] 06/21/2025 10:30 AM EST Office Visit [facility] [address] [place] [address] Jessica Moore, SCREEN PRINTING MACHINE OPERATOR-ISOTOPE TECHNOLOGIST [address] [place], [place] [phone] documented as of this encounter Visit Diagnoses Not on filedocumented in this encounter Additional Health Concerns Assessment Noted Time PHQ-9 Depression Total Score: 11 023 10:35 AM EDT A fall risk assessment has been complete d for the patient 02/16/2023 10:23 AM EDT documented as of this encounter Care Teams Human Resources Operations Director Relationship Specialty Start Date End Date Raquel Rayo MD [address] [place] [address] [place] [address] PCP - General 09/19/10 Courtney Mayfield MD [address] [facility], [facility] [address] [place] [phone] Referring Physician Allergy and Immunology 02/12/24 documented as of this encounter
--- OUTSIDE RECORDS SUMMARY | 2025-02-03 08:50 | XMS_ITS | Encounter Summary ---
Author Organization [facility] Address [address] [place] [address] Phone Care Team Providers Care Legal Consultant Name Role Phone Raquel Rayo MD Primary Care Provider [phone] Courtney Mayfield MD Unavailable Encounter Details Date Type Department Care Team (Late st Contact Info) Description 04/09/2023 Scanned Document [facility] [address] [facility] 160 [place] [address] Courtney Mayfield MD 9[address] [facility], [place] [address] [place], [place] [phone] Social History Tobacco Use Types Packs/Day Years [...] Description 02/08/2025 11:20 AM EDT Procedure Visit [facility] [address] [place] [address] Jodie Matthews MD [address] [place], [place] [phone] 02/14/2025 11:00 AM EDT Office Visit Isabela Mitch Eddie [address] [place] [address] iMna Betts MD MPH [address] [place] [address] 02/17/2025 11:30 AM EDT Telemedicine [facility] [address] [place] [address] Leonila Kern, DELINQUENT NOTICE MACHINE OPERATOR-FRACTIONATION PLANT SUPERVISOR [address] [facility], [facility] 130 [place] [address] 04/24/2025 2:45 PM EST Office [facility] [address] [facility] 2100 [place] [address] Courtney Mayfield MD [address] [facility], [facility] [address] [place], [place] [address] 06/21/2025 10:30 AM EST Office Visit [facility] [address] [place] [address] Jessica Moore, DELINQUENT NOTICE MACHINE OPERATOR-FRACTIONATION PLANT SUPERVISOR [address] [place], [place] [phone] documented as of this encounter Visit Diagnoses Not on filedocumented in this encounter Additional Health Concerns Assessment Noted Time PHQ-9 Depression Total Score: 11 023 10:35 AM EDT A fall risk assessment has been complete d for the patient 02/16/2023 10:23 AM EDT documented as of this encounter Care Teams Legal Consultant Relationship Specialty Start Date End Date Raquel Rayo MD [address] [place] [address] [place] [address] PCP - General 09/19/10 Courtney Mayfield MD [address] [facility], [facility] [address] [place] [phone] Referring Physician Allergy and Immunology 02/12/24 documented as of this encounter
--- OUTSIDE RECORDS SUMMARY | 2025-02-03 08:50 | XMS_ITS | Encounter Summary ---
Author Organization [facility] Address [address] [place] [address] Phone Care Team Providers Care Journalism Internship Name Role Phone Raquel Rayo MD Primary Care Provider [phone] Courtney Mayfield MD Unavailable [phone] Encounter Details Date Type Department Care Team (Late st Contact Info) Description 03/30/2023 Scanned Document [facility] [address] [facility] 2[address] [place] [address] Courtney Mayfield MD 960 [facility], [facility] 2[address] [place], [place] [phone] Social History Tobacco Use Types Packs/Day Years [...] Description 02/08/2025 11:20 AM EDT Procedure Visit [facility] [address] [place] [address] Jodie Matthews MD [address] [place], [place] [phone] 02/14/2025 11:00 AM EDT Office Visit Isabela Mitch Eddie [address] [place] [address] Mina Betts MD MPH [address] [place] [address] 02/17/2025 11:30 AM EDT Telemedicine [facility] [address] [place] [address] Leonila Kern CANT GANG SAWYER-BAIT PACKER [address] [place] [facility], [facility] 130 [place] [address] 04/24/2025 2:45 PM EST Office Visit [facility] [address] [facility] 2[address] [place] [address] Courtney Mayfield MD [address] [facility], [facility] [address] [place], [place] [phone] 06/21/2025 10:30 AM EST Office Visit [facility] [address] [place] [address] Jessica Moore, CANT GANG SAWYER-BAIT PACKER [address] [place], [place] [phone] documented as of this encounter Visit Diagnoses Not on filedocumented in this encounter Additional Health Concerns Assessment Noted Time PHQ-9 Depression Total Score: 11 023 10:35 AM EDT A fall risk assessment has been complete d for the patient 02/16/2023 10:23 AM EDT documented as of this encounter Care Teams Journalism Internship Relationship Specialty Start Date End Date Raquel Rayo MD [address] [place] [address] [place] [address] PCP - General 09/19/10 Courtney Mayfield MD [address] [place] [address], [facility] [address] [place] [phone] Referring Physician Allergy and Immunology 02/12/24 documented as of this encounter
--- OUTSIDE RECORDS SUMMARY | 2025-02-03 08:50 | XMS_ITS | Encounter Summary ---
Author Organization [facility] Address [address] [place] [address] Phone Care Team Providers Care Holter Technician Name Role Phone Raquel Rayo MD Primary Care Provider [phone] Courtney Mayfield MD Unavailable [phone] Encounter Details Date Type Department Care Team (Late st Contact Info) Description 03/09/2023 Scanned Document [facility] [address] [facility] 2100 [place] [address] Courtney Mayfield MD 960 [facility], [facility] [address]100 [place], [place] [phone] Social History Tobacco Use Types Packs/Day Years [...] Description 02/08/2025 11:20 AM EDT Procedure Visit [facility] [address] [place] [address] Jodie Matthews MD [address] [place], [place] [phone] 02/14/2025 11:00 AM EDT Office Visit Isabelasahil Meyer Eddie [address] [place] [address] Mina Betts MD MPH [address] [place] [address] 02/17/2025 11:30 AM EDT Telemedicine [facility] [address] [place] [address] Leonila Kern, PIPELAYER-CONTRACT TECHNICIAN [address] [facility], [facility] 130 [place] [address] 04/24/2025 2:45 PM EST Office Visit [facility] [address] [facility] 2100 [place] [address] Courtney Mayfield MD [address] [facility], [facility] [address]100 [place], [place] [phone] 06/21/2025 10:30 AM EST Office Visit [facility] [address] [place] [address] Jessica Moore, PIPELAYER-CONTRACT TECHNICIAN [address] [place], [place] [phone] documented as of this encounter Visit Diagnoses Not on filedocumented in this encounter Additional Health Concerns Assessment Noted Time PHQ-9 Depression Total Score: 11 023 10:35 AM EDT A fall risk assessment has been complete d for the patient 02/16/2023 10:23 AM EDT documented as of this encounter Care Teams Holter Technician Relationship Specialty Start Date End Date Raquel Rayo MD [address] [place] [address] [place] [address] PCP - General 09/19/10 Courtney Mayfield MD [address] [place] [address], [facility] 2100 [place] [address] Referring Physician Allergy and Immunology 02/12/24 documented as of this encounter
--- OUTSIDE RECORDS SUMMARY | 2025-02-03 08:50 | XMS_ITS | Encounter Summary ---
Author Organization [facility] Address [address] [place] [address] Phone Care Team Providers Care President Sales And Marketing Name Role Phone Raquel Rayo MD Primary Care Provider [phone] Courtney Mayfield MD Unavailable [phone] Encounter Details Date Type Department Care Team (Late st Contact Info) Description 04/13/2023 Scanned Document [facility] [address] [place] [address] [place] [address] Courtney Mayfield MD 960 [facility], [facility] [address]100 [place], [place] [address] Social History Tobacco Use Types Packs/Day Years [...] 04/15/2023 11:35 AM EST Chiqui Harmon sa Harpal documented as of this encounter Plan of Treatment Upcoming Encounters Date Type Department Care Team (Late st Contact Info) Description 02/08/2025 11:20 AM EDT Procedure Visit [facility] [address] [place] [address] Jodie Matthews MD [address] [place] [address] 02/14/2025 11:00 AM EDT Office Visit Isabelasahil Meyer Eddie [address] [place] [address] Mina Betts MD MPH [address] [place] [address] 02/17/2025 11:30 AM EDT Telemedicine [facility] [address] [place] [address] Leonila Kern, PONY EDGER-BOTTOM LINER 1000 [place] [facility], [facility] 130 [place] [address] 04/24/2025 2:45 PM EST Office Visit [facility] [address] [facility] 2100 [place] [address] Courtney Mayfield MD [address] [facility], [facility] 2[address] [place] [address] 06/21/2025 10:30 AM EST Office Visit [facility] [address] [place] [address] Jessica Moore, PONY EDGER-BOTTOM LINER [address] [place] [address] documented as of this encounter Visit Diagnoses Not on filedocumented in this encounter Additional Health Concerns Assessment Noted Time PHQ-9 Depression Total Score: 11 023 10:35 AM EDT A fall risk assessment has been complete d for the patient 02/16/2023 10:23 AM EDT documented as of this encounter Care Teams President Sales And Marketing Relationship Specialty Start Date End Date Raquel Rayo MD [address] [place] [address] [place] [address] PCP - General 09/19/10 Courtney Mayfield MD [address] [place] [address], [facility] [address]100 [place] [address] Referring Physician Allergy and Immunology 02/12/24 documented as of this encounter
--- OUTSIDE RECORDS SUMMARY | 2025-02-03 08:50 | XMS_ITS | Encounter Summary ---
Author Organization [facility] Address [address] [place] [address] Phone Care Team Providers Care Credit Analysis Manager Name Role Phone Raquel Rayo MD Primary Care Provider [phone] Courtney Mayfield MD Unavailable [phone] Encounter Details Date Type Department Care Team (Late st Contact Info) Description 04/13/2023 Scanned Document [facility] [address] [place] [place] [address] Courtney Mayfield MD 960 [facility], [facility] 2100 [place], [place] [phone] Social History Tobacco Use Types Packs/Day Years [...] Description 02/08/2025 11:20 AM EDT Procedure Visit [facility] [address] [place] [address] Jodie Matthews MD [address] [place] [address] 02/14/2025 11:00 AM EDT Office Visit Isabelasahil Meyer Eddie [address] [place] [address] Mina Betts MD MPH [address] [place] [address] 02/17/2025 11:30 AM EDT Telemedicine [facility] [address] [place] [address] Leonila Kern, ENVIRONMENTAL ATTORNEY-CALENDER INSPECTOR 1000 [place] [facility], [facility] 130 [place] [address] 04/24/2025 2:45 PM EST Office Visit [facility] [address] [facility] 2100 [place] [address] Courtney Mayfield MD [address] [facility], [facility] 2100 [place] [address] 06/21/2025 10:30 AM EST Office Visit [facility] [address] [place] [address] Jessica Moore, ENVIRONMENTAL ATTORNEY-CALENDER INSPECTOR [address] [place] [address] documented as of this encounter Visit Diagnoses Not on filedocumented in this encounter Additional Health Concerns Assessment Noted Time PHQ-9 Depression Total Score: 11 023 10:35 AM EDT A fall risk assessment has been complete d for the patient 02/16/2023 10:23 AM EDT documented as of this encounter Care Teams Credit Analysis Manager Relationship Specialty Start Date End Date Raquel Rayo MD [address] [place] [address] [place] [address] PCP - General 09/19/10 Courtney Mayfield MD [address] [place] [address], [facility] [address] [place] [address] Referring Physician Allergy and Immunology 02/12/24 documented as of this encounter
--- OUTSIDE RECORDS SUMMARY | 2025-02-03 08:50 | XMS_ITS | Encounter Summary ---
Author Organization [facility] Address [address] [place] [address] Phone Care Team Providers Care Chief Controller Tower Name Role Phone Raquel Rayo MD Primary Care Provider [phone] Courtney Mayfield MD Unavailable [phone] Encounter Details Date Type Department Care Team (Late st Contact Info) Description 03/09/2023 Scanned Document [facility] [address] [facility] 2100 [place] [address] Courtney Mayfield MD 960 [facility], [facility] [address]100 [place], [place] [phone] Social History Tobacco Use Types Packs/Day Years [...] 02/08/2025 11:20 AM EDT Procedure Visit [facility] [address] [place] [address] Jodie Matthews MD [address] [place], [place] [phone] 02/14/2025 11:00 AM EDT Office Visit Isabelasahil Meyer Eddie [address] [place] [address] Mina Betts MD MPH [address] [place] [address] 02/17/2025 11:30 AM EDT Telemedicine [facility] [address] [place] [address] Leonila Kern, HOOP MACHINE OPERATOR-ASSOCIATE PROFESSOR OF ART [address] [facility], [facility] 130 [place] [address] 04/24/2025 2:45 PM EST Office Visit [facility] [address] [facility] 2100 [place] [address] Courtney Mayfield MD [address] [facility], [facility] [address]100 [place], [place] [address] 06/21/2025 10:30 AM EST Office [facility] [address] [place] [address] Jessica Moore, HOOP MACHINE OPERATOR-ASSOCIATE PROFESSOR OF ART [address] [place], [place] [phone] documented as of this encounter Visit Diagnoses Not on filedocumented in this encounter Additional Health Concerns Assessment Noted Time PHQ-9 Depression Total Score: 11 023 10:35 AM EDT A fall risk assessment has been complete d for the patient 02/16/2023 10:23 AM EDT documented as of this encounter Care Teams Chief Controller Tower Relationship Specialty Start Date End Date Raquel Rayo MD [address] [place] [address] [place] [address] PCP - General 09/19/10 Courtney Mayfield MD [address] [place] [address], [facility] [address] [place] [address] Referring Physician Allergy and Immunology 02/12/24 documented as of this encounter
--- OUTSIDE RECORDS SUMMARY | 2025-02-03 08:50 | XMS_ITS | Encounter Summary ---
Author Organization [facility] Address [address] [place] [address] Phone Care Team Providers Care Labor Law Professor Name Role Phone Raquel Rayo MD Primary Care Provider [phone] Courtney Mayfield MD Unavailable [phone] Encounter Details Date Type Department Care Team (Late st Contact Info) Description 03/19/2023 Scanned Document [facility] [address] [place] [address] Courtney Mayfield MD 960 [facility], [facility] 2100 [place], [place] [phone] Social History Tobacco Use Types Packs/Day Years [...] Description 02/08/2025 11:20 AM EDT Procedure Visit [facility] [address] [place] [address] Jodie Matthews MD [address] [place] [address] 02/14/2025 11:00 AM EDT Office Visit Isabela Morgan [address] [place] [address] [facility] [address] [place] [address] 02/17/2025 11:30 AM EDT Telemedicine [facility] [address] [place] [address] Leonila Kern PRACTICE PHYSICIAN-INDUSTRIAL TRAINING SPECIALIST [address] [facility], [facility] 130 [place] [address] 04/24/2025 2:45 PM EST [facility] Visit [facility] [address] [facility] [address] [place] [address] Courtney Mayfield MD [address] [facility], [facility] [address] [place] [address] 06/21/2025 10:30 AM EST Office Visit [facility] [address] [place] [phone] Jessica Moore, PRACTICE PHYSICIAN-INDUSTRIAL TRAINING SPECIALIST [address] [place] [address] documented as of this encounter Visit Diagnoses Not on filedocumented in this encounter Additional Health Concerns Assessment Noted Time PHQ-9 Depression Total Score: 11 023 10:35 AM EDT A fall risk assessment has been complete d for the patient 02/16/2023 10:23 AM EDT documented as of this encounter Care Teams Labor Law Professor Relationship Specialty Start Date End Date Raquel Rayo MD [address] [place] [address] [place] [address] PCP - General 09/19/10 Courtney Mayfield MD [address] [facility], [place] [address] [place] [phone] Referring Physician Allergy and Immunology 02/12/24 documented as of this encounter
--- OUTSIDE RECORDS SUMMARY | 2025-02-03 08:51 | XMS_ITS | Encounter Summary ---
Author Organization [employer] [facility] Address [id number] [address] [place] [address] Care Team Providers Care Photographer Scientific Name Role Phone Unavailable Primary Care Provider Unavailabl e Encounter Details Date Type Department Care Team (Late st Contact Info) Description 10/05/2024 Orders Only [facility] External [facility] Storage [address] [place] [phone] Transcribe, Orders Support User Pain (Primary Dx) Social History Tobacco Use Types [...] on file documented as of this encounter Results * MRA neck without contrast (10/04/2024 11:30 AM EDT) us Scanning Provider External IMG MRI ORDERABLES Fi nal Result * MRA head without contrast (10/04/2024 11:00 AM EDT) us Scanning Provider External IMG MRI ORDERABLES Fi nal Result * MR brain without contrast (10/04/2024 10:55 AM EDT) us Scanning Provider External IMG MRI ORDERABLES Fi nal Result * CT brain without contrast (10/04/2024 8:00 AM EDT) us Scanning Provider External IMG CT ORDERABLES Fin al Result * CT brain without contrast (10/02/2024 3:20 AM EDT) us Scanning Provider External IMG CT ORDERABLES Fin al Result * CT cervical spine without contrast (10/02/2024 3:15 AM EDT) us Scanning Provider External IMG CT ORDERABLES Fin al Result documented in this encounter Visit Diagnoses Diagnosis Pain- Primary Generalized pain documented in this encounter
--- OUTSIDE RECORDS SUMMARY | 2025-02-03 08:51 | XMS_ITS | Encounter Summary ---
Author Organization [facility] Address [address] [place] [address] Care Team Providers Care Underwriting Sales Representative Name Role Phone Unavailable Primary Care Provider Unavailabl e Encounter Details Date Type Department Care Team (Late st Contact Info) Description 06/02/2023 Abstract [facility] [address] [place] [phone] Luis Luis, DO [address] [place] [address] Social History Tobacco Use Types Packs/Day Years [...]
--- OUTSIDE RECORDS SUMMARY | 2025-02-03 08:51 | XMS_ITS | Encounter Summary ---
Author Organization [facility] Address [address] [place] [address] Phone Care Team Providers Care Bonded Structures Repairer Name Role Phone Raquel Rayo MD Primary Care Provider [phone] Courtney Mayfield MD Unavailable [phone] Encounter Details Date Type Department Care Team (Late st Contact Info) Description 02/06/2020 Orders Only [facility] [address] [place] [address] Conversion, Onbase Social History Tobacco Use Types [...] Description 02/08/2025 11:20 AM EDT Procedure Visit [facility] [address] [place] [phone] Jodie Matthews MD [address] [place], [place] [phone] 02/14/2025 11:00 AM EDT Office Visit Isabela Morgan [address] [place] [address] Mina Betts MD MPH [address] [place] [address] 02/17/2025 11:30 AM EDT Telemedicine [facility] [address] [facility] [address] [place] [address] Leonila Kern SUPERVISOR OF GUIDANCE AND TESTING-COLLEGE SERVICE OFFICER [address] [facility], [facility] [address] [place] [address] 04/24/2025 2:45 PM EST Office Visit [facility] [address] [facility] [address] [place] [phone] Courtney Mayfield MD [address] [facility], [facility] [address] [place] [address] 06/21/2025 10:30 AM EST Office Visit [facility] [address] [facility] [address] [place] [address] Jessica Moore, SUPERVISOR OF GUIDANCE AND TESTING-COLLEGE SERVICE OFFICER [address] [facility] [address] [place] [address] Scheduled Orders Name Type Priority Associated Diagnoses Orde r Schedule OUTSIDE LAB SCAN Lab Ordered: 02/06/2020 documented as of this encounter Visit Diagnoses Not on filedocumented in this encounter Care Teams Bonded Structures Repairer Relationship Specialty Start Date End Date Raquel Rayo MD [address] [place] [address] [address] [place] [address] PCP - General 09/19/10 Courtney Mayfield MD [address] [facility], [facility] [address] [place], [place] [phone] Referring Physician Allergy and Immunology 02/12/24 documented as of this encounter
--- OUTSIDE RECORDS SUMMARY | 2025-02-03 08:51 | XMS_ITS | Encounter Summary ---
Author Organization [facility] Address [address] [place] [address] Phone Care Team Providers Care Conveyor Belt Repairer Name Role Phone Raquel Rayo MD Primary Care Provider [phone] Courtney Mayfield MD Unavailable Reason for Visit * Reason Comments Med Refill Encounter Details Date Type Department Care Team (Late st Contact Info) Description 01/25/2025 Refill [facility] [address] [place] [address] Jodie Matthews MD [address] [place] [address] Chronic migraine without aura without [...] from your doctor or pharmacy? Sometimes 01/02/2024 [facility] Utilities Answer Date Recorded In [...] often do you attend chur ch or baptist services? More than 4 times per year 07/24/2024 Do you belong to any clubs o r organizations such as baptist groups, unions, fraternal or athletic groups, or school groups? Yes 07/24/2024 How often do you attend meet ings of the clubs or organizations you belong to? More than 4 times per year 07/24/2024 Are you , , di vorced, , never , or living with a partner? 07/24/2024 PHQ-2 Answer Date Recorded Patient Health Questionnaire-2 Score 0 12/19/2024 Exercise Vital Sign Answer Date Recorde d On average, how many days pe r week do you engage in moderate to strenuous exercise (like a brisk walk)? 5 days 01/02/2024 On average, how many minutes do you engage in exercise at this level? 30 min 01/02/2024 PRAPARE - Transportation Answer Date Re [...] any time in the past 12 m [facility], were you homeless or living in a snf (including now)? No 07/24/2024 Humiliation, Afraid, Rape, and Kick questionnair e Answer Date Recorded Within the last year, have y ou been afraid of your partner or ex-partner? No 01/25/2025 Within the last year, have y ou been humiliated or emotionally abused in other ways by your partner or ex-partner? No Within the last year, have y ou been kicked, hit, slapped, or otherwise physically hurt by your partner or ex-partner? No 01/25/2025 Within the last year, have y ou been raped or forced to have any kind of sexual activity by your partner or ex-partner? No 01/25/2025 Social Connection and Isolation Panel Answer Date Recorded Frequency of Communication with Friends and Fami ly Not on file 01/25/2025 Frequency of Social Gatherings with Friends and Family Not on file 01/25/2025 Attends Anglican Services Not on file 01/25 Active Member of Clubs or Organizations Not on f ile 01/25/2025 Attends Club or Organization Meetings Not on amanda e 01/25/2025 Are you , , di vorced, , never , or living with a partner? 01/25/2025 AUDIT-C Answer Date Recorded Q1: How often do you have a drink containing alcohol? Never 01/25/2025 Q2: How many drinks containi ng alcohol do you have on a typical day when you are drinking? Patient does not drink Q3: How often do you have si x or more drinks on one occasion? Never 01/25/2025 Overall Financial Resource Strain (CARDIA) Answe r Date Recorded How hard is it for you to pa y for the very basics like food, housing, medical care, and heating? Not very hard 01/25/2025 [facility] of Occupat ional Health - Occupational Stress Questionnaire Answer Date Recorded Do you feel stress - tense, restless, nervous, or anxious, or unable to sleep at night because your mind is troubled all the time - these days? To some extent 01/25/2025 Hunger Vital Sign Answer Date Recorded Within the past 12 months, y ou worried that your food would run out before you got the money to buy more. Never true Within the past 12 months, t he food you bought just didn't last and you didn't have money to get more. Sometimes true PRAPARE - Transportation Answer Date Re corded In the past 12 months, has l ack of transportation kept you from medical appointments or from getting medications? No 01/03 In the past 12 months, has l ack of transportation kept you from meetings, work, or from getting things needed for daily living? No 01/25/2025 Housing Stability Vital Sign Answer Mir e Recorded In the last 12 months, was t here a time when you were not able to pay the mortgage or rent on time? No 01/25/2025 Number of Times Moved in the Last Year Not on fi le 01/25/2025 Homeless in the Last Year Not on file 2024 Sex and Gender Information Value Date Recorded Sex Assigned at Not on file Legal Sex Male 11:51 PM EST Gender Identity Not on file Sexual Orientation Not on file documented as of this encounter Functional Status * AUDIT-C Score Answer Date of Assessment Author 0 01/25/2025 11:43 AM EDT Shawnat, Generic * Skip to questions 9-10? Answer Date of Assessment Author 1 01/25/2025 11:43 AM EDT Chandrika, Generic * Q1: How often do you have a drink containing alcohol? Answer Date of Assessment Author Never 01/25/2025 11:43 AM EDT Chandrika, Generic * Q2: How many drinks containing alcohol do you have on a typical day when you are drinking? Answer Date of Assessment Author Patient does not drink 01/25/2025 11:43 AM EDT Harpal rodriguez, Generic * Q3: How often do you have six or more drinks on one occasion? Answer Date of Assessment Author Never 01/25/2025 11:43 AM EDT Chandrika, Generic * Audit-C Score Answer Date of Assessment Author 0 01/25/2025 11:43 AM EDT Shawnat, Generic * Feeling nervous, anxious, or on edge Answer Date of Assessment Author 1 01/25/2025 11:13 AM EDT Shawnat, Generic * Worrying too much about different things Answer Date of Assessment Author 0 01/25/2025 11:13 AM EDT Shawnat, Generic * Trouble relaxing Answer Date of Assessment Author 2 01/25/2025 11:13 AM EDT Shawnat, Generic * Being so restless that it is hard to sit still Answer Date of Assessment Author 0 01/25/2025 11:13 AM EDT Shawnat, Generic * Becoming easily annoyed or irritable Answer Date of Assessment Author 0 01/25/2025 11:13 AM EDT Mychart, Generic * Feeling afraid as if something awful might happen Answer Date of Assessment Author 0 01/25/2025 11:13 AM EDT Mychart, Generic documented as of this encounter Plan of Treatment Upcoming Encounters Date Type Department Care Team (Late st Contact Info) Description 02/08/2025 11:20 AM EDT Procedure Visit [facility] [address] [place] [phone] Jodie Matthews MD [address] [place], [place] [phone] 02/14/2025 11:00 AM EDT Office Visit Isabelasahil Meyer Eddie [address] [place] [address] Mina Betts MD [facility] [address] [place] [address] 02/17/2025 11:30 AM EDT Telemedicine [facility] Recovery [facility] [address] [place] [address] Leonila Kern, WATER TEAM LEADER-CURRICULUM COACH [address] [facility] Recovery [facility], [facility] [address] [place] [address] 04/24/2025 2:45 PM EST Office Visit [facility] [address] [facility] [address] [place] [address] Courtney Mayfield MD [address] [facility], [facility] [address] [place] [address] 06/21/2025 10:30 AM EST Office Visit [facility] [address] [place] [phone] Jessica Moore, WATER TEAM LEADER-CURRICULUM COACH [address] [place], [place] [phone] documented as of this encounter Visit Diagnoses Diagnosis Chronic migraine without aura without status migrainosus, not intractable documented in this encounter Additional Health Concerns Assessment Noted Time PHQ-9 Depression Total Score: 23 025 11:53 AM EDT A fall risk assessment has been complete d for the patient 12/19/2024 11:43 AM EDT documented as of this encounter Care Teams Conveyor Belt Repairer Relationship Specialty Start Date End Date Raquel Rayo MD [address] [place] [address] PCP - General 09/19/10 Courtney Mayfield MD [address] [facility], [place] [phone] Referring Physician Allergy and Immunology 02/12/24 documented as of this encounter
--- OUTSIDE RECORDS SUMMARY | 2025-02-03 08:51 | XMS_ITS | Encounter Summary ---
Author Organization [facility] Address [address] [place] [address] Phone Care Team Providers Care Balancer Name Role Phone Raquel Rayo MD Primary Care Provider [phone] Courtney Mayfield MD Unavailable [phone] Reason for Visit * Reason Onset Date Comments Med Refill 01/20/2025 Encounter Details Date Type Department Care Team (Late st Contact Info) Description 01/20/2025 Refill [facility] [address] [place] [address] Lauren Galeas, bow machine operator migraine without aura without status migrainosus, not [...] often do you attend chur ch or baptism services? More than 4 times per year 07/24/2024 Do you belong to any clubs o r organizations such as sabianism groups, unions, fraternal or athletic groups, or [...] Recorded Patient Health Questionnaire-2 Score 0 12/19/2024 [facility] Occupat ional Health - Occupational [...] any time in the past 12 m [facility], were you homeless or living in a nursing home (including now)? No 07/24/2024 Sex and Gender Information Value Date Recorded Sex Assigned at Not on file Legal Sex Male 11:51 PM EST Gender Identity Not on file Sexual Orientation Not on file documented as of this encounter Plan of Treatment Upcoming Encounters Date Type Department Care Team (Late st Contact Info) Description 02/08/2025 11:20 AM EDT Procedure Visit [facility] [address] [place] [address] Jodie Matthews MD [address] [place], [place] [phone] 02/14/2025 11:00 AM EDT Office Visit Isabelasahil Garzadanita [address] [place] [address] Mina Betts MD MPH [address] [place] [address] 02/17/2025 11:30 AM EDT Telemedicine [facility] Recovery [facility] [address] [place] [address] Leonila Kern APRN-CNP [address] [facility], [address] [place] [address] 04/24/2025 2:45 PM EST Office Visit [facility] [address] [place] [address] Courtney Mayfield MD [address] [facility], [facility] [address] [place] [address] 06/21/2025 10:30 AM EST Office Visit [facility] [address] [phone] Jessica Moore, PAYROLL ADMINISTRATOR-MILK ROUTE DELIVERER [address] [facility] [address] [place] [address] documented as of this encounter Visit Diagnoses Diagnosis Chronic migraine without aura without status migrainosus, not intractable documented in this encounter Additional Health Concerns Assessment Noted Time PHQ-9 Depression Total Score: 23 025 11:53 AM EDT A fall risk assessment has been complete d for the patient 12/19/2024 11:43 AM EDT documented as of this encounter Care Teams Balancer Relationship Specialty Start Date End Date Raquel Rayo MD [address] [place] [address] PCP - General 09/19/10 Courtney Mayfield MD [address] [facility], [address] [place] [address] Referring Physician Allergy and Immunology 02/12/24 documented as of this encounter
--- OUTSIDE RECORDS SUMMARY | 2025-02-03 08:51 | XMS_ITS | Encounter Summary ---
Author Organization [facility] Address [address] [place] [address] Phone Care Team Providers Care Woods Superintendent Name Role Phone Raquel Rayo MD Primary Care Provider [phone] Courtney Mayfield MD Unavailable [phone] Encounter Details Date Type Department Care Team (Late st Contact Info) Description 04/20/2023 Scanned Document [facility] [address] [facility] [address] [place] [address] Courtney Mayfield MD [address]60 [facility][note 3], [facility] [address] [place], [place] [phone] Social History Tobacco Use Types Packs/Day Years [...] Description 02/08/2025 11:20 AM EDT Procedure Visit [facility] [address] [place] [address] Jodie Matthews MD [address] [place], [place] [phone] 02/14/2025 11:00 AM EDT Office Visit Isabela Mitch Eddie [address] [place] [address] Mina Betts MD MPH [address] [place] [address] 02/17/2025 11:30 AM EDT Telemedicine [facility] [address] [place] [address] Leonila Kern MATERIALS SUPERVISOR-MERCHANDISE CARRIER [address] [place] [facility], [facility] [address] [place] [address] 04/24/2025 2:45 PM EST Office Visit [facility] [address] [facility] [address] [place] [address] Courtney Mayfield MD [address] [facility], [facility] [address] [place], [place] [phone] 06/21/2025 10:30 AM EST Office Visit [facility] [address] [place] [address] Jessica Moore, MATERIALS SUPERVISOR-MERCHANDISE CARRIER [address] [place], [place] [phone] documented as of this encounter Visit Diagnoses Not on filedocumented in this encounter Additional Health Concerns Assessment Noted Time PHQ-9 Depression Total Score: 11 023 10:35 AM EDT A fall risk assessment has been complete d for the patient 02/16/2023 10:23 AM EDT documented as of this encounter Care Teams Woods Superintendent Relationship Specialty Start Date End Date Raquel Rayo MD [address] [place] [address] [place] [address] PCP - General 09/19/10 Courtney Mayfield MD [address] [place] [address], [facility] [address] [place] [phone] Referring Physician Allergy and Immunology 02/12/24 documented as of this encounter
--- OUTSIDE RECORDS SUMMARY | 2025-02-03 08:51 | XMS_ITS | Encounter Summary ---
Author Organization [facility] Address [address] [place] [address] Phone Care Team Providers Care Paper Machine Tender Name Role Phone Raquel Rayo MD Primary Care Provider [phone] Courtney Mayfield MD Unavailable [phone] Encounter Details Date Type Department Care Team (Latest Contact Info) Description 01/23/2025 Results Follow-Up [facility] [address] [facility] [place] [address] Mina Betts MD MPH [address] [place] [address] Complete Pulmonary Function Test Pre/Post Bronchodilator (Spirometry Pre/Post/DLCO/Lung Volumes) Social History Tobacco Use Types Packs/Day Years [...] from your doctor or pharmacy? Sometimes 01/02/2024 [facility] Utilities Answer Date Recorded In [...] How often do you attend chur or muslim services? More than 4 times per year 07/24/2024 Do you belong to any clubs o r organizations such as gnosticism groups, unions, fraternal or athletic groups, or [...] Recorded Patient Health Questionnaire-2 Score 0 12/19/2024 [facility] of Occupat ional Health - [...] symptoms? None of these 01/23/2025 8:02 AM EDT Teri Harris documented as of this encounter Miscellaneous Notes * Telephone Encounter - Mina Betts MD MPH - 01/23/2025 5:02 PM EDT PFTs demonstrate improvement without obstruction or restriction with normal DLCO. With his walk test he was tachycardic without significant desaturation. He is coming in to see me in 2 days. documented in this encounter Plan of Treatment Upcoming Encounters Date Type Department Care Team (Late st Contact Info) Description 02/08/2025 11:20 AM EDT Procedure Visit [facility] [address] [place] [address] Jodie Matthews MD [address] [place], [place] [phone] 02/14/2025 11:00 AM EDT Office Visit Isabela Morgan [address] [place] [phone] Mina Betts MD MPH [address] [facility] [address] [place] [address] 02/17/2025 11:30 AM EDT Telemedicine [facility] [address] [facility] [address] [place] [address] Leonila Kern LATHE TURNER-LIVESTOCK BREEDER [address] [facility], [facility] [address] [place] [address] 04/24/2025 2:45 PM EST Office Visit [facility] [address] [facility] [address] [place] [address] Courtney Mayfield MD [address] [facility], [facility] [address] [place], [place] [phone] 06/21/2025 10:30 AM EST Office Visit [facility] [address] [facility] [address] [place] [address] Jessica Moore, LATHE TURNER-LIVESTOCK BREEDER [address] [facility] [address] [place], [place] [phone] documented as of this encounter Visit Diagnoses Not on filedocumented in this encounter Additional Health Concerns Assessment Noted Time PHQ-9 Depression Total Score: 23 025 11:53 AM EDT A fall risk assessment has been complete d for the patient 12/19/2024 11:43 AM EDT documented as of this encounter Care Teams Paper Machine Tender Relationship Specialty Start Date End Date Raquel Rayo MD [address] [place] [address] [place] [address] PCP - General 09/19/10 Courtney Mayfield MD [address] [facility], [facility] [address] [place] [address] Referring Physician Allergy and Immunology 02/12/24 documented as of this encounter
--- OUTSIDE RECORDS SUMMARY | 2025-02-03 08:51 | XMS_ITS | Encounter Summary ---
Author Organization [facility] Address [address] [place] [address] Care Team Providers Care Legal Instructor Name Role Phone Unavailable Primary Care Provider Unavailabl e Encounter Details Date Type Department Care Team (Late st Contact Info) Description 05/31/2024 Abstract [facility] [address] [place] [address] Melissa Wilson, AIRPLANE RIGGER [address] [place] [address] Social History Tobacco Use Types Packs/Day Years [...]
--- OUTSIDE RECORDS SUMMARY | 2025-02-03 08:51 | XMS_ITS | Encounter Summary ---
Author Organization [facility] Address [address] [place] [address] Phone Care Team Providers Care Tree Tapping Laborer Name Role Phone Raquel Rayo MD Primary Care Provider [phone] Courtney Mayfield MD Unavailable [phone] Encounter Details Date Type Department Care Team (Late st Contact Info) Description 01/03/2025 Telephone [facility] [address] [place] [address] Christine Araujo MA Social History Tobacco Use Types Packs/Day Years [...] from your doctor or pharmacy? Sometimes 01/02/2024 [facility] Utilities Answer Date Recorded In the past 12 months has [employer] electric, gas, oil, or water company threatened [...] week 07/24/2024 How often do you attend [facility] or jehovah's witness services? More than 4 times per year [...] any time in the past 12 m [facility], were you homeless or living in a senior living (including now)? No 07/24/2024 Humiliation, Afraid, Rape, [...] and Family Not on file 01/25/2025 Attends Jainism Services Not on file 01/25 Active Member [...] care, and heating? Not very hard 01/25/2025 [facility] of Occupat ional Health - Occupational Stress [...] * Question Answer Date of Assessment Author Do you have any of the following new or worsening symptoms? Chills;Fatigue 02/01/2025 10:03 PM EDT Mychart, Generic * AUDIT-C Score Answer Date of Assessment Author 0 01/25/2025 11:43 AM EDT Mychart, Generic * Skip to questions 9-10? Answer Date of Assessment Author 1 01/25/2025 11:43 AM EDT Mychart, Generic * Q1: How often do you have a drink containing alcohol? Answer Date of Assessment Author Never 01/25/2025 11:43 AM EDT Mychart, Generic * Q2: How many drinks containing alcohol do you have on a typical day when you are drinking? Answer Date of Assessment Author Patient does not drink 01/25/2025 11:43 AM EDT M ychart, Generic * Q3: How often do you have six or more drinks on one occasion? Answer Date of Assessment Author Never 01/25/2025 11:43 AM EDT Mychart, Generic * Audit-C Score Answer Date of Assessment Author 0 01/25/2025 11:43 AM EDT Mychart, Generic * Feeling nervous, anxious, or on edge Answer Date of Assessment Author 1 01/25/2025 11:13 AM EDT Mychart, Generic * Worrying too much about different things Answer Date of Assessment Author 0 01/25/2025 11:13 AM EDT Mychart, Generic * Trouble relaxing Answer Date of Assessment Author 2 01/25/2025 11:13 AM EDT Mychart, Generic * Being so restless that it is hard to sit still Answer Date of Assessment Author 0 01/25/2025 11:13 AM EDT Mychart, Generic * Becoming easily annoyed or irritable [...] Description 02/08/2025 11:20 AM EDT Procedure Visit [facility] [address] [place] [address] Jodie Matthews MD [address] [place], [place] [phone] 02/14/2025 11:00 AM EDT Office Visit Isabela Morgan [address] [place] [address] Mina Betts MD [facility] [address] [place] [address] 02/17/2025 11:30 AM EDT Telemedicine [facility] Recovery [facility] [address] [place] [address] Leonila Kern, CONTACT CENTER PROFESSIONAL-VALIDATION SOFTWARE FACILITATOR [address] [facility], [address] [place] [address] 04/24/2025 2:45 PM EST Office Visit [facility] [address] [place] [address] Courtney Mayfield MD [address] [facility], [address] [place] [address] 06/21/2025 10:30 AM EST Office Visit [facility] [address] [place] [address] Jessica Moore, CONTACT CENTER PROFESSIONAL-VALIDATION SOFTWARE FACILITATOR [address] [place], [place] [phone] documented as of this encounter Visit Diagnoses Not on filedocumented in this encounter Additional Health Concerns Assessment Noted Time PHQ-9 Depression Total Score: 23 025 11:53 AM EDT A fall risk assessment has been complete d for the patient 12/19/2024 11:43 AM EDT documented as of this encounter Care Teams Tree Tapping Laborer Relationship Specialty Start Date End Date Raquel Rayo MD [address] [place] [address] [place] [address] PCP - General 09/19/10 Courtney Mayfield MD [address] [facility], [address] [place] [phone] Referring Physician Allergy and Immunology 02/12/24 documented as of this encounter
--- OUTSIDE RECORDS SUMMARY | 2025-02-03 08:51 | XMS_ITS | Encounter Summary ---
Author Organization [facility] Address [address] [place] [address] Phone Care Team Providers Care Core Shaper Name Role Phone Raquel Rayo MD Primary Care Provider [phone] Courtney Mayfield MD Unavailable [phone] Encounter Details Date Type Department Care Team (Late st Contact Info) Description 01/09/2025 Scanned Document [facility] [address] [place] [address] Courtney Mayfield MD [address] [facility], [facility] [address] [place] [phone] Social History Tobacco Use Types Packs/Day Years [...] from your doctor or pharmacy? Sometimes 01/02/2024 [facility] Utilities Answer Date Recorded In [...] How often do you attend chur or jehovah's witness services? More than 4 [...] Patient Health Questionnaire-2 Score 0 12/19/2024 [facility] of Occupat ional [...] any time in the past 12 m [facility], were you homeless or living in a prison (including now)? No 07/24/2024 Sex and Gender Information Value Date Recorded Sex Assigned at Not on file Legal Sex Male 11:51 PM EST Gender Identity Not on file Sexual Orientation Not on file documented as of this encounter Plan of Treatment Upcoming Encounters Date Type Department Care Team (Late st Contact Info) Description 02/08/2025 11:20 AM EDT Procedure Visit [facility] [address] [place] [phone] Jodie Matthews MD [address] [place], [place] [phone] 02/14/2025 11:00 AM EDT Office Visit Isabela Morgan [address] [place] [address] Mina Betts MD MPH [address] [place] [phone] 02/17/2025 11:30 AM EDT Telemedicine [facility] Recovery [facility] [address] [place] [address] Leonila Kern APRN-CNP [address] [facility], [address] [place] [address] 04/24/2025 2:45 PM EST Office Visit [facility] [address] [address] Courtney Mayfield MD [address] [facility], [address] [address] 06/21/2025 10:30 AM EST Office Visit [facility] [address] [phone] Jessica Moore, LOCK AND DAM OPERATOR-CHARTER DRIVER [address] [place] [address] documented as of this encounter Visit Diagnoses Not on filedocumented in this encounter Additional Health Concerns Assessment Noted Time PHQ-9 Depression Total Score: 23 025 11:53 AM EDT A fall risk assessment has been complete d for the patient 12/19/2024 11:43 AM EDT documented as of this encounter Care Teams Core Shaper Relationship Specialty Start Date End Date Raquel Rayo MD [address] [place] [address] [place] [address] PCP - General 09/19/10 Courtney Mayfield MD [address] [facility], [facility] [address] [place] [address] Referring Physician Allergy and Immunology 02/12/24 documented as of this encounter
--- OUTSIDE RECORDS SUMMARY | 2025-02-03 08:51 | XMS_ITS | Encounter Summary ---
Author Organization [facility] Address [address] [place] [address] Phone Care Team Providers Care Layout Designer Name Role Phone Raquel Rayo MD Primary Care Provider [phone] Courtney Mayfield MD Unavailable [phone] Encounter Details Date Type Department Care Team (Latest Contact Info) Description 01/23/2025 Travel Social History Tobacco Use Types Packs/Day Years [...] from your doctor or pharmacy? Sometimes 01/02/2024 [facility] Utilities Answer Date Recorded In the past 12 months has [facility], gas, oil, or water [employer] threatened to shut off services in your home? Yes 01/02/2024 Social Connection and Isolation Panel Answer Date Recorded In a typical week, how many times do you talk on the phone with family, friends, or neighbors? Twice a week 07/24/2024 How often do you get togethe r with friends or relatives? Twice a week 07/24/2024 How often do you attend chur or yazdanism services? More than 4 times per year 07/24/2024 Do you belong to any clubs o r organizations such as confucianism groups, unions, fraternal or athletic groups, or [...] 0 12/19/2024 [facility] - Occupational Stress Questionnaire Answer Date [...] any time in the past 12 m [facility], were you homeless or living [...] Teri Harris documented as of this encounter Plan of Treatment Upcoming Encounters Date Type Department Care Team (Late st Contact Info) Description 02/08/2025 11:20 AM EDT Procedure Visit [facility] [address] [place] [phone] Jodie Matthews MD [address] [place] [address] 02/14/2025 11:00 AM EDT Office Visit Isabela Morgan [address] [place] [address] Mina Betts MD [facility] [address] [place] [address] 02/17/2025 11:30 AM EDT Telemedicine [facility] Recovery [facility] [address] [place] [address] Leonila Kern APRN-FINANCIAL DEVELOPER [address] [facility] [address] [place] [address] 04/24/2025 2:45 PM EST Office Visit [facility] [address] [place] [address] Courtney Mayfield MD [address] [facility], [facility] [address] [place] [address] 06/21/2025 10:30 AM EST Office Visit [facility] [address] [phone] Jessica Moore, CONTACT CENTER ASSISTANT-FINANCIAL DEVELOPER [address] [address] documented as of this encounter Visit Diagnoses Not on filedocumented in this encounter Additional Health Concerns Assessment Noted Time PHQ-9 Depression Total Score: 23 025 11:53 AM EDT A fall risk assessment has been complete d for the patient 12/19/2024 11:43 AM EDT documented as of this encounter Care Teams Layout Designer Relationship Specialty Start Date End Date Raquel Rayo MD [address] [place] [address] [place] [address] PCP - General 09/19/10 Courtney Mayfield MD [address] [facility], [facility] [address] [place] [address] Referring Physician Allergy and Immunology 02/12/24 documented as of this encounter
--- OUTSIDE RECORDS SUMMARY | 2025-02-03 08:51 | XMS_ITS | Encounter Summary ---
Author Organization [facility] Address [address] [place] [address] Phone Care Team Providers Care Counter Professional Name Role Phone Raquel Rayo MD Primary Care Provider [phone] Courtney Mayfield MD Unavailable [phone] Encounter Details Date Type Department Care Team (Late st Contact Info) Description 04/16/2023 Scanned Document [facility] [address] [facility] [address] [place] [address] Courtney Mayfield MD 960 [facility], [address] [place], [place] [phone] Social History Tobacco Use Types Packs/Day Years [...] Description 02/08/2025 11:20 AM EDT Procedure Visit [facility] [address] [place] [address] Jodie Matthews MD [address] [place], [place] [phone] 02/14/2025 11:00 AM EDT Office Visit Isabela Mitch Eddie [address] [place] [address] Mina Betts MD MPH [address] [place] [address] 02/17/2025 11:30 AM EDT Telemedicine [facility] [address] [place] [address] Leonila Kern, WATER REGISTRAR-CLAMP OPERATOR [address] [facility], [facility] [place] [address] [place] [address] 04/24/2025 2:45 PM EST Office Visit [facility] [address] [facility] [place] [address] [place] [address] Courtney Mayfield MD [address] [facility], [facility] [place] [address] [place], [place] [phone] 06/21/2025 10:30 AM EST Office Visit [facility] [address] [place] [address] Jessica Moore, WATER REGISTRAR-CLAMP OPERATOR [address] [place], [place] [phone] documented as of this encounter Visit Diagnoses Not on filedocumented in this encounter Additional Health Concerns Assessment Noted Time PHQ-9 Depression Total Score: 11 023 10:35 AM EDT A fall risk assessment has been complete d for the patient 02/16/2023 10:23 AM EDT documented as of this encounter Care Teams Counter Professional Relationship Specialty Start Date End Date Raquel Rayo MD [address] [place] [address] [place] [address] PCP - General 09/19/10 Courtney Mayfield MD [address] [facility], [facility] [place] [address] [place] [phone] Referring Physician Allergy and Immunology 02/12/24 documented as of this encounter
--- OUTSIDE RECORDS SUMMARY | 2025-02-03 08:51 | XMS_ITS | Encounter Summary ---
Author Organization [facility] Address [address] [place] [address] Phone Care Team Providers Care Principal Mechanical Engineer Name Role Phone Raquel Rayo MD Primary Care Provider [phone] Courtney Mayfield MD Unavailable [phone] Encounter Details Date Type Department Care Team (Late st Contact Info) Description 04/20/2023 Scanned Document [facility] [address] [facility] [address] [place] [address] Courtney Mayfield MD 960 [facility], [facility] [address] [place], [place] [phone] Social History Tobacco Use Types [...] Description 02/08/2025 11:20 AM EDT Procedure Visit [facility] [address] [place] [address] Jodie Matthews MD [address] [place], [place] [phone] 02/14/2025 11:00 AM EDT Office Visit Isabela Mitch Eddie [address] [place] [address] Mina Betts MD MPH [address] [place] [address] 02/17/2025 11:30 AM EDT Telemedicine [facility] [address] [place] [address] Leonila Kenr SENIOR LINUX ENGINEER-APPLICATION INTERNSHIP [address] [facility], [facility] [address] [place] [address] 04/24/2025 2:45 PM EST Office Visit [facility] [address] [facility] [address] [place] [address] Courtney Mayfield MD [address] [facility], [facility] [address] [place], [place] [phone] 06/21/2025 10:30 AM EST Office Visit [facility] [address] [place] [address] Jessica Moore, SENIOR LINUX ENGINEER-APPLICATION INTERNSHIP [address] [place], [place] [phone] documented as of this encounter Visit Diagnoses Not on filedocumented in this encounter Additional Health Concerns Assessment Noted Time PHQ-9 Depression Total Score: 11 023 10:35 AM EDT A fall risk assessment has been complete d for the patient 02/16/2023 10:23 AM EDT documented as of this encounter Care Teams Principal Mechanical Engineer Relationship Specialty Start Date End Date Raquel Rayo MD [address] [place] [address] [place] [address] PCP - General 09/19/10 Courtney Mayfield MD [address] [place] [address], [facility] [address] [place] [phone] Referring Physician Allergy and Immunology 02/12/24 documented as of this encounter
--- OUTSIDE RECORDS SUMMARY | 2025-02-03 08:51 | XMS_ITS | Encounter Summary ---
Author Organization [facility] Address [address] [place] [address] Phone Care Team Providers Care Language Teacher Name Role Phone Raquel Rayo MD Primary Care Provider [phone] Courtney Mayfield MD Unavailable [phone] Encounter Details Date Type Department Care Team (Late st Contact Info) Description 01/23/2025 Specialty [facility] [address] [place] [phone] Bonnie Inman Social History Tobacco Use Types Packs/Day Years [...] from your doctor or pharmacy? Sometimes 01/02/2024 [facility] Utilities Answer Date Recorded In the [...] week 07/24/2024 How often do you attend [facility] or faith services? More than 4 times per year 07/24/2024 Do you belong to any clubs o r organizations such as alevism groups, unions, fraternal or athletic groups, or [...] any time in the past 12 m [facility], were you homeless or living in a long-term (including now)? No 07/24/2024 Humiliation, Afraid, Rape, [...] and Family Not on file 01/25/2025 Attends [employer] Not on file 01/25 Active Member [...] care, and heating? Not very hard 01/25/2025 [facility] of Occupat ional Health - Occupational Stress [...] these 01/23/2025 8:02 AM EDT Teri Harris * AUDIT-C Score Answer Date of Assessment [...] Description 02/08/2025 11:20 AM EDT Procedure Visit [facility] [address] [place] [address] Jodie Matthews MD [address] [place], [place] [phone] 02/14/2025 11:00 AM EDT Office Visit Isabela Morgan [address] [place] [address] Mina Betts MD MPH [address] [place] [address] 02/17/2025 11:30 AM EDT Telemedicine [facility] Recovery [facility] [address] [place] [address] Leonila Kern, CURER FOAM RUBBER-INSTRUCTOR OF NURSING [address] [facility], [facility] [address] [place] [address] 04/24/2025 2:45 PM EST Office Visit [facility] [address] [facility] [address] [place] [address] Courtney Mayfield MD [address] [facility], [facility] [address] [place] [address] 06/21/2025 10:30 AM EST Office Visit [facility] [address] [place] [address] Jessica Moore, CURER FOAM RUBBER-INSTRUCTOR OF NURSING [address] [place], [place] [phone] documented as of this encounter Visit Diagnoses Not on filedocumented in this encounter Additional Health Concerns Assessment Noted Time PHQ-9 Depression Total Score: 23 025 11:53 AM EDT A fall risk assessment has been complete d for the patient 12/19/2024 11:43 AM EDT documented as of this encounter Care Teams Language Teacher Relationship Specialty Start Date End Date Raquel Rayo MD [address] [place] [address] [place] [address] PCP - General 09/19/10 Courtney Mayfield MD 960 [facility] [address] [place] [phone] Referring Physician Allergy and Immunology 02/12/24 documented as of this encounter
--- OUTSIDE RECORDS SUMMARY | 2025-02-03 08:51 | XMS_ITS | Clinical Summary ---
Author Organization [facility] Address [id number] [address] [place] [address] Care Team Providers Care Corporate Scheduler Name Role Phone Unavailable Primary Care Provider [...] Tobacco Screening 1973 Adult BMI Screening 1979 Zoster (Shingles) Vaccine (2 of 2) 04/09/2020 02/13/2020 COVID-19 Vaccine (3 - 2024-2 6 season) 2025 08/03/2021, 06/20/2021 Influenza Vaccine 01/02/2025 02/04/2024, , 01/16/2020, Additional history exists DTaP,Tdap and Td Vaccines (2 - Td or Tdap) 04/05/2032 04/05/2022 Medical Devices Not on file
--- OUTSIDE RECORDS SUMMARY | 2025-02-03 08:51 | XMS_ITS | Encounter Summary ---
Author Organization [facility] Address [address] [place] [address] Phone Care Team Providers Care Hand Trucker Name Role Phone Raquel Rayo MD Primary Care Provider Courtney Mayfield MD Unavailable Encounter Details Date Type Department Care Team (Late st Contact Info) Description 04/16/[address] [facility] [address] [facility] [address] [place] [address] Courtney Mayfield MD 960 [facility], [address] [place], [place] [phone] Social History Tobacco Use Types Packs/Day Years [...] [facility] [address] [place] [address] Jodie Matthews MD [address] [place], [place] [phone] 02/14/2025 11:00 AM EDT Office Visit Isabela Mitch Eddie [address] [place] [address] Mina Betts MD MPH [address] [place] [address] 02/17/2025 11:30 AM EDT Telemedicine [facility] [address] [place] [address] Leonila Kenr, PHYSICIAN SURGEON-CEMENTER MACHINE APPLICATOR [address] [facility], [facility] [address] [place] [address] 04/24/2025 2:45 PM EST [facility] [address] [facility] [address] [place] [address] Courtney Mayfield MD [address] [facility], [facility] [address] [place], [place] [phone] 06/21/2025 10:30 AM EST Office Visit [facility] [address] [place] [address] Jessica Moore, PHYSICIAN SURGEON-CEMENTER MACHINE APPLICATOR [address] [place], [place] [phone] documented as of this encounter Visit Diagnoses Not on filedocumented in this encounter Additional Health Concerns Assessment Noted Time PHQ-9 Depression Total Score: 11 023 10:35 AM EDT A fall risk assessment has been complete d for the patient 02/16/2023 10:23 AM EDT documented as of this encounter Care Teams Hand Trucker Relationship Specialty Start Date End Date Raquel Rayo MD [address] [place] [address] [place] [address] PCP - General 09/19/10 Courtney Mayfield MD [address] [facility], [facility] [address] [place] [phone] Referring Physician Allergy and Immunology 02/12/24 documented as of this encounter
--- OUTSIDE RECORDS SUMMARY | 2025-02-03 08:51 | XMS_ITS | Encounter Summary ---
Author Organization [facility] Address [address] [place] [address] Phone Care Team Providers Care Senior Accounts Payable Specialist Name Role Phone Raquel Rayo MD Primary Care Provider [phone] Courtney [place] MD Unavailable [phone] Encounter Details Date Type Department Care Team (Latest Contact Info) Description 02/01/2025 Travel Social History Tobacco Use Types Packs/Day [...] from your doctor or pharmacy? Sometimes 01/02/2024 [facility] Utilities Answer Date Recorded In the past 12 months has [facility] [employer], gas, oil, or water [employer] threatened to shut off services in your home? Yes 01/02/2024 Social Connection and Isolation Panel Answer Date Recorded In a typical week, how many times do you talk on the phone with family, friends, or neighbors? Twice a week 07/24/2024 How often do you get togethe r with friends or relatives? Twice a week 07/24/2024 How often do you attend chur or mu-ism services? More than 4 times per year 07/24/2024 Do you belong to any clubs o r organizations such as pentecostalism groups, unions, fraternal or athletic groups, or [...] time in the past 12 m [facility], were you homeless or living in a halfway (including now)? No 07/24/2024 Humiliation, Afraid, Rape, [...] and Family Not on file 01/25/2025 Attends Restorationism Services Not on file 01/25 Active Member [...] care, and heating? Not very hard 01/25/2025 [facility] of Occupat ional Health - Occupational [...] documented as of this encounter Functional Status documented as of this encounter Plan of Treatment Upcoming Encounters Date Type Department Care Team (Late st Contact Info) Description 02/08/2025 11:20 AM EDT Procedure Visit [facility] [address] [place] [phone] Jodie Matthews MD [address] [place], [place] [phone] 02/14/2025 11:00 AM EDT Office Visit Isabelasahil Meyer Eddie [address] [place] [address] Mina Betts MD [facility] [address] [place] [address] 02/17/2025 11:30 AM EDT Telemedicine [facility] Recovery [facility] [address] [place] [address] Leonila Kern, LOAN FUNDER-MOBILE PRODUCT MANAGER [address] [facility] Recovery [facility], [facility] [address] [place] [address] 04/24/2025 2:45 PM EST Office Visit [facility] [address] [facility] [address] [place] [address] Courtney [place] MD [address] [facility], [facility] [address] [place] [address] 06/21/2025 10:30 AM EST Office Visit [facility] [address] [place] [phone] Jessica Moore, LOAN FUNDER-MOBILE PRODUCT MANAGER [address] [place], [place] [phone] documented as of this encounter Visit Diagnoses Not on filedocumented in this encounter Additional Health Concerns Assessment Noted Time PHQ-9 Depression Total Score: 23 025 11:53 AM EDT A fall risk assessment has been complete d for the patient 12/19/2024 11:43 AM EDT documented as of this encounter Care Teams Senior Accounts Payable Specialist Relationship Specialty Start Date End Date Raquel Rayo MD [address] [place] [address] [place] [address] PCP - General 09/19/10 Courtney [place] MD 960 [facility], [facility] [address] [place] [phone] Referring Physician Allergy and Immunology 02/12/24 documented as of this encounter
--- OUTSIDE RECORDS SUMMARY | 2025-02-03 08:51 | XMS_ITS | Encounter Summary ---
Author Organization [facility] [place] [facility] Address [address] [place] [address] Phone Care Team Providers Care Director Of Research Center Name Role Phone Raquel Rayo MD Primary Care Provider [phone] Courtney [place] MD Unavailable [phone] Encounter Details Date Type Department Care Team (Late st Contact Info) Description 04/20/2023 Scanned Document [facility] [address] [facility] [address] [place] [address] Courtney [place] MD 960 [facility][note 3], [facility] [address] [place], [place] [phone] Social History Tobacco Use Types Packs/Day Years [...] Description 02/08/2025 11:20 AM EDT Procedure Visit [facility] [address] [place] [address] Jodie Matthews MD [address] [place], [place] [phone] 02/14/2025 11:00 AM EDT Office Visit Isabela Mitch Eddie [address] [place] [address] Mina Betts MD [facility] [address] [place] [address] 02/17/2025 11:30 AM EDT Telemedicine [facility] [address] [place] [address] Leonila Kern GEOPHYSICAL COMPUTER-FOREST TECHNOLOGY PROFESSOR 1000 [facility], [facility] [address] [place] [address] 04/24/2025 2:45 PM EST Office Visit [facility] [address] [facility] [address] [place] [address] Courtney [place] MD [address] [facility], [facility] [address] [place], [place] [phone] 06/21/2025 10:30 AM EST Office Visit [facility] [address] [place] [address] Jessica Moore, GEOPHYSICAL COMPUTER-FOREST TECHNOLOGY PROFESSOR [address] [place], [place] [phone] documented as of this encounter Visit Diagnoses Not on filedocumented in this encounter Additional Health Concerns Assessment Noted Time PHQ-9 Depression Total Score: 11 023 10:35 AM EDT A fall risk assessment has been complete d for the patient 02/16/2023 10:23 AM EDT documented as of this encounter Care Teams Director Of Research Center Relationship Specialty Start Date End Date Raquel Rayo MD [address] [place] [address] [place] [address] PCP - General 09/19/10 Courtney [place] MD [address] [place] [address], [facility] [address] [place] [phone] Referring Physician Allergy and Immunology 02/12/24 documented as of this encounter
--- OUTSIDE RECORDS SUMMARY | 2025-02-03 08:51 | XMS_ITS | Encounter Summary ---
Author Organization [facility] Address [address] [place] [address] Care Team Providers Care Nursery Technician Name Role Phone Unavailable Primary Care Provider Unavailabl e Encounter Details Date Type Department Care Team (Late st Contact Info) Description 09/04/2023 Abstract [facility] [address] [place] [phone] Park Reinoso MD [address] [place] [address] Social History Tobacco Use Types Packs/Day Years [...]
--- OUTSIDE RECORDS SUMMARY | 2025-02-03 08:51 | XMS_ITS | Encounter Summary ---
Author Organization [facility] Address [address] [place] [address] Phone Care Team Providers Care Feature Writer Name Role Phone Raquel Rayo MD Primary Care Provider [phone] Courtney [place] MD Unavailable [phone] Encounter Details Date Type Department Care Team (Late st Contact Info) Description 01/24/2025 Abstract [facility] [address] [place] [address] Jodie Matthews MD [address] [place] [address] Social History Tobacco Use Types Packs/Day Years [...] from your doctor or pharmacy? Sometimes 01/02/2024 [facility] Utilities Answer Date Recorded In the [...] often do you attend chur ch or mormonism services? More than 4 times per year [...] any time in the past 12 m [facility], were you homeless or living in a long term (including now)? No 07/24/2024 Humiliation, Afraid, Rape, [...] and Family Not on file 01/25/2025 Attends Pentecostal Services Not on file 01/25 Active Member [...] Not very hard 01/25/2025 [facility] of Occupat ional Health - Occupational Stress [...] 0 01/25/2025 11:13 AM EDT Shawnat, Generic documented as of this encounter Plan of Treatment Upcoming Encounters Date Type Department Care Team (Late st Contact Info) Description 02/08/2025 11:20 AM EDT Procedure Visit [facility] [address] [place] [phone] Jodie Matthews MD [address] [place], [place] [phone] 02/14/2025 11:00 AM EDT Office Visit Isabela Mitch Eddei [address] [place] [address] Mina Betts MD [facility] [address] [place] [address] 02/17/2025 11:30 AM EDT Telemedicine [facility] [address] [place] [address] Leonila Kern, TALENT ACQUISITION COORDINATOR-OFFICE MACHINE EMBOSSOGRAPH OPERATOR 1000 [facility], [facility] 130 [place] [address] 04/24/2025 2:45 PM EST Office Visit [facility] [address] [facility] [address] [place] [address] Courtney [place] MD [address] [facility], [facility] [address] [place] [address] 06/21/2025 10:30 AM EST Office Visit [facility] [address] [place] [address] Jessica Moore, TALENT ACQUISITION COORDINATOR-OFFICE MACHINE EMBOSSOGRAPH OPERATOR [address] [place], [place] [phone] documented as of this encounter Visit Diagnoses Not on filedocumented in this encounter Additional Health Concerns Assessment Noted Time PHQ-9 Depression Total Score: 23 025 11:53 AM EDT A fall risk assessment has been complete d for the patient 12/19/2024 11:43 AM EDT documented as of this encounter Care Teams Feature Writer Relationship Specialty Start Date End Date Raquel Rayo MD [address] [place] [address] [place] [address] PCP - General 09/19/10 Courtney [place] MD 960 [facility] [place] [address] [place], [place] [phone] Referring Physician Allergy and Immunology 02/12/24 documented as of this encounter
--- OUTSIDE RECORDS SUMMARY | 2025-02-03 08:51 | XMS_ITS | Encounter Summary ---
Author Organization [facility] Address [address] [place] [address] Phone Care Team Providers Care Operator Coating Furnace Name Role Phone Raquel Rayo MD Primary Care Provider [phone] Courtney [place] MD Unavailable [phone] Encounter Details Date Type Department Care Team (Late st Contact Info) Description 12/06/2019 Orders Only [facility] [address] [place] [address] Conversion, Onbase Social History Tobacco Use Types [...] Description 02/08/2025 11:20 AM EDT Procedure Visit [facility] [address] [place] [address] Jodie Matthews MD [address] [place], [place] [phone] 02/14/2025 11:00 AM EDT Office Visit Isabela Morgan [address] [place] [address] Mina Betts MD [facility] [address] [place] [address] 02/17/2025 11:30 AM EDT Telemedicine [facility] [address] [facility] [address] [place] [address] Leonila Kern DIRECT MARKETING SPECIALIST-CHEMICAL DEPENDENCY PROFESSIONAL [address] [facility], [facility] [address] [place] [address] 04/24/2025 2:45 PM EST Office Visit [facility] [address] [facility] [address] [place] [address] Courtney [place] MD [address] [facility], [facility] [address] [place] [address] 06/21/2025 10:30 AM EST Office Visit [facility] [address] [phone] Jessica Moore, DIRECT MARKETING SPECIALIST-CHEMICAL DEPENDENCY PROFESSIONAL [address] [facility] [address] [place] [address] Scheduled Orders Name Type Priority Associated Diagnoses Orde r Schedule OUTSIDE LAB SCAN Lab Ordered: 12/06/2019 OUTSIDE LAB SCAN Lab Ordered: 12/06/2019 documented as of this encounter Visit Diagnoses Not on filedocumented in this encounter Care Teams Operator Coating Furnace Relationship Specialty Start Date End Date Raquel Rayo MD [address] [place] [address] PCP - General 09/19/10 Courtney [place] MD [address] [facility], [facility] [address] [place] [address] Referring Physician Allergy and Immunology 02/12/24 documented as of this encounter
--- OUTSIDE RECORDS SUMMARY | 2025-02-03 08:51 | XMS_ITS | Clinical Summary ---
Author Organization [facility] Address [address] [place] [address] Care Team Providers Care Spindle Setter Name Role Phone Unavailable Primary Care Provider Unavailabl e Encounters Date Type Department Care Team Description 11/18/2024 External Result Encounter [facility] External Department Unsolicited Melissa Wilson NP 11/18/2024 External Result Encounter [facility] External Department Unsolicited [...] 1961 FOBT 1961 Sigmoidoscopy 1961 Influenza Vaccine (#1) 2025 2, 01/16/2020, 03/04/2019, Additional history exists Procedures Procedure Name Priority Date/Time Associated Diagnosis Comments FERRITIN Routine 11/18/2024 8:21 AM EDT IRON AND TOTAL IRON BINDING CAPACITY Routine 11/18/2024 8:21 AM EDT CBC WITH AUTO DIFFERENTIAL Routine 11/18/2024 8:21 AM EDT from Last 3 Months Results * (ABNORMAL) CBC auto differential (11/18/2024 8:21 AM EDT) WBC 4.6 4.1 - 10.5 [CFU]/mL 11/18/2024 8:43 AM EDT [facility] UNCORRECTED WHITE BLOOD COUNT 4.6 4.1 - 10.5 10*3/uL 11/18/2024 8:43 AM EDT [facility] RBC 4.74 3.90 - 5.60 10*6/uL 11/18/2024 8:43 AM EDT [facility] HEMOGLOBIN 13.7 13.0 - 17.0 g/dL 11/18/2024 8:43 AM EDT [facility] HEMATOCRIT 40.5 38.8 - 50.0 % 11/18/2024 8:43 AM EDT [facility] MCV 85.5 83.5 - 101 fL 11/18/2024 8:43 AM EDT [facility] MCH 28.9 27.5 - 35.2 pg 11/18/2024 8:43 AM EDT [facility] MCHC 33.8 32.5 - 35.6 g/dL 11/18/2024 8:43 AM EDT [facility] RED CELL DISTRIBUTION WIDTH, RDW 15.4(H) 12.0 - 14.8 % 11/18/2024 8:43 AM EDT [facility] PLATELET COUNT 217 150 - 450 10*3/uL 11/18/2024 8:43 AM EDT [facility] MEAN PLATELET VOLUME, MPV 7.8 6.6 - 10.1 fL 11/18/2024 8:43 AM EDT [facility] NEUTROPHILS, % 39.5 . % 11/18/2024 8:43 AM EDT [facility] LYMPHOCYTES, % 47.8 . % 11/18/2024 8:43 AM EDT [facility] MONOCYTE/MACROPHA GE, % 9.8 . % 11/18/2024 8:43 AM EDT [facility] EOSINOPHILS, % 0.9 . % 11/18/2024 8:43 AM EDT [facility] BASOPHILS, % 2.0 . % 11/18/2024 8:43 AM EDT [facility] NRBC 0.1 0 - 0.5 /100{WBC} 11/18/2024 8:43 AM EDT [facility] NEUTROPHILS 1.8 1.8 - 7.7 10*3/uL 11/18/2024 8:43 AM EDT [facility] LYMPHOCYTES 2.2 1.00 - 4.8 10*3/uL 11/18/2024 8:43 AM EDT [facility] MONOCYTES 0.4 0.0 - 0.8 10*3/uL 11/18/2024 8:43 AM EDT [facility] EOSINOPHILS 0.0 0.0 - 0.45 10*3/uL 11/18/2024 8:43 AM EDT [facility] BASOPHILS 0.1 0.0 - 0.2 10*3/uL 11/18/2024 8:43 AM EDT [facility] Blood (Blood) 11/18/2024 8:2 1 AM EDT 11/18/2024 8:21 AM EDT Melissa Wilson GUEST HOUSE MANAGER LAB BLOOD ORDERABLES Final Re sult Performing Organization Address [facility] Co de Phone Number [facility] [address] [place] [address], [facility] [address] [place] [address] * (ABNORMAL) Iron and TIBC (11/18/2024 8:21 AM EDT) IRON 31(L) 50 - 212 ug/dL 11/18/2024 9:49 AM EDT [facility] TOTAL IRON BINDING CAPACITY 326 255 - 450 ug/dL 11/18/2024 9:49 AM EDT [facility] % IRON SATURATION 9.5(L) 20 - 50 % 11/18/2024 9:49 AM EDT [facility] TRANSFERRIN 233 203 - 362 mg/dL 11/18/2024 9:49 AM EDT [facility] Other Topography unknown / Unknown 11/18/2024 8:21 AM EDT 11/18/2024 8:21 AM EDT Melissa Wilson GUEST HOUSE MANAGER LAB BLOOD ORDERABLES Final Re sult Performing Organization Address [facility]/ZIP Co de Phone Number [facility] [address] [place] [address], [facility] [address] [place] [address] * Ferritin (11/18/2024 8:21 AM EDT) FERRITIN 26.0 23.9 - 336.2 ng/mL 11/18/2024 10:09 AM EDT [facility] Other Topography unknown / Unknown 11/18/2024 8:21 AM EDT 11/18/2024 8:21 AM EDT Melissa Wilson GUEST HOUSE MANAGER LAB BLOOD ORDERABLES Final Re sult [facility] [address] [place] [address], [facility] [address] [place] [address] from Last 3 Months Insurance [employer]
--- OUTSIDE RECORDS SUMMARY | 2025-02-03 08:51 | XMS_ITS | Clinical Summary ---
Author Organization [facility] Address [address] [facility], [address] [place] [address] Care Team Providers Care Perinatal Social Worker Name Role Phone Raquel Rayo MD Primary Care Provider Allergies Active Allergy Reactions Criticality Noted Date [...] nightly 45 tablet 1 0 Active Umeclidinium Braham 62.5 MCG/INH AEPB Inhale 1 puff into [...] of 2 - PCV) 12/10/2021 12/10/2020, 05/04/2017 Flu vaccine (#1) 12/02/2024 04/14/2022, , 03/04/2019, Additional history exists COVID-19 Vaccine (2 - 2024- season) 2025 08/03/2021 DTaP/Tdap/Td vaccine (2 - Td or Tdap) [...] 04/14/2019 8:37 AM EST Oni Rowan Dealibia BILINGUAL SALES CONSULTANT - COMPLIANCE TESTING ANALYST POINT OF CARE TEST HECTOR MEDEROS Final Result * Lipid Panel (04/06/2019 12:55 PM EST) Cholesterol 170 <200 mg/dL 04/06/2019 12:55 PM EST [facility] Comment: Cholesterol Guidelines: <200 Desirable 200-240 Borderline >240 Undesirable HDL 68 >40 mg/dL 04/06/2019 12:55 PM EST [facility] Comment: HDL Guidelines: <40 Undesirable 40-59 Borderline >59 Desirable LDL Cholesterol 77 0 - 130 mg/dL 04/06/2019 12:55 PM [facility] Comment: LDL Guidelines: <100 Desirable 100-129 Near to/above Desirable 130-159 Borderline >159 Undesirable Direct (measured) LDL and calculated LDL are not interchangeable tests. Chol/HDL Ratio 2.5 <5 04/06/2019 12:55 PM [facility] Comment: Triglycerides 124 <150 mg/dL 04/06/2019 12:55 PM [facility] Comment: Triglyceride Guidelines: <150 Desirable 150-199 Borderline 200-499 High >499 Very high Based on AHA Guidelines for fasting triglyceride, February 2012. VLDL NOT REPORTED 1 - 30 mg/dL 04/06/2019 12:55 PM [facility] BLOOD SPECIMEN / Unknown 04/06/2019 12:55 PM EST 04/06/2019 12:56 PM EST Oni Gr BILINGUAL SALES CONSULTANT [facility] CHEMISTRY ORDERABLES Fi nal Result Performing Organization Address [facility] Co de Phone Number [facility] [address] [place] [address] * PSA Screening (11/11/2018 10:16 AM EDT) PSA 2.88 <4.1 ug/L 11/11/2018 10:16 AM EDT [facility] Comment: The Jessica ECLIA assay is used. Results obtained with different assay methods cannot be used interchangeably. BLOOD SPECIMEN / Unknown 11/11/2018 10:16 AM EDT 11/11/2018 10:17 AM EDT Oni Gr BILINGUAL SALES CONSULTANT [facility] CHEMISTRY ORDERABLES Fi nal Result Performing Organization Address [facility]/ZIP Co de Phone Number [facility] [address] [place] [address] from Last 3 Months or Most Recently Relevant to Health Maintenance Insurance [facility] MEDICARE [facility] MEDICARE Care Teams Perinatal Social Worker Relationship Specialty Start Date End Date Raquel Rayo MD PCP - General Family Medicine 11/21/19
--- OUTSIDE RECORDS SUMMARY | 2025-02-03 08:51 | XMS_ITS | Encounter Summary ---
Author Organization [facility] Address [address] [place] [address] Phone Care Team Providers Care Development Engineer Name Role Phone Raquel Rayo MD Primary Care Provider [phone] Courtney [place] MD Unavailable [phone] Encounter Details Date Type Department Care Team (Late st Contact Info) Description 04/20/2023 Scanned Document [facility] [address] [facility] [address] [place] [address] Courtney [place] MD 960 [facility], [facility] [address] [place], [place] [phone] Social History Tobacco Use Types Packs/Day Years [...] Description 02/08/2025 11:20 AM EDT Procedure Visit [facility] [address] [place] [address] Jodie Matthews MD [address] [place], [place] [phone] 02/14/2025 11:00 AM EDT Office Visit Isabela Mitch Eddie [address] [place] [address] Mina Betts MD [facility] [address] [place] [address] 02/17/2025 11:30 AM EDT [facility] [address] [place] [address] Leonila Kern BREAD JOCKEY-TOY DESIGNER [address] [place] [facility], [facility] [address] [place] [address] 04/24/2025 2:45 PM EST Office Visit [facility] [address] [facility] [address] [place] [address] Courtney aMyfield MD [address] [facility], [facility] [address] [place], [place] [phone] 06/21/2025 10:30 AM EST Office Visit [facility] [address] [place] [address] Jessica Moore, BREAD JOCKEY-TOY DESIGNER [address] [place], [place] [phone] documented as of this encounter Visit Diagnoses Not on filedocumented in this encounter Additional Health Concerns Assessment Noted Time PHQ-9 Depression Total Score: 11 023 10:35 AM EDT A fall risk assessment has been complete d for the patient 02/16/2023 10:23 AM EDT documented as of this encounter Care Teams Development Engineer Relationship Specialty Start Date End Date Raquel Rayo MD [address] [place] [address] [place] [address] PCP - General 09/19/10 Courtney [place] MD [address] [place] [address], [facility] [address] [place] [phone] Referring Physician Allergy and Immunology 02/12/24 documented as of this encounter
--- OUTSIDE RECORDS SUMMARY | 2025-02-03 08:51 | XMS_ITS | Encounter Summary ---
Author Organization [facility] Address [address] [place] [address] Phone Care Team Providers Care Supply Chain Director Name Role Phone Raquel Rayo MD Primary Care Provider [phone] Courtney Mayfield MD Unavailable [phone] Encounter Details Date Type Department Care Team (Late st Contact Info) Description 01/04/2025 Scanned Document [facility] [address] [place] [address] Courtney Mayfield MD 960 [facility] [place], [facility] [address] [place] [id number] Social History Tobacco Use Types Packs/Day Years [...] from your doctor or pharmacy? Sometimes 01/02/2024 [facility] Utilities Answer Date Recorded In the past [...] How often do you attend chur or shinto services? More than 4 times per year 07/24/2024 Do you belong to any clubs o r organizations such as jewish groups, unions, fraternal or athletic groups, or [...] Recorded Patient Health Questionnaire-2 Score 0 12/19/2024 [facility] Occupat ional Health - [...] any time in the past 12 m [facility], were you homeless or living in a [...] Description 02/08/2025 11:20 AM EDT Procedure Visit [facility] [address] [place] [phone] Jodie Matthews MD [address] [place], [place] [phone] 02/14/2025 11:00 AM EDT Office Visit Isabela Morgan [address] [place] [address] Mina Betts MD MPH [address] [place] [phone] 02/17/2025 11:30 AM EDT Telemedicine [facility] Recovery [facility] [address] [place] [address] Leonila Kern APRN-CNP [address] [facility] Recovery [facility], [address] [place] [address] 04/24/2025 2:45 PM EST Office Visit [facility] [address] [address] Courtney Mayfield MD [address] [facility], [address] [address] 06/21/2025 10:30 AM EST Office Visit [facility] [address] [phone] Jessica Moore, MANAGER PROCESS EXCELLENCE-TOGGLER [address] [place] [address] documented as of this encounter Visit Diagnoses Not on filedocumented in this encounter Additional Health Concerns Assessment Noted Time PHQ-9 Depression Total Score: 23 025 11:53 AM EDT A fall risk assessment has been complete d for the patient 12/19/2024 11:43 AM EDT documented as of this encounter Care Teams Supply Chain Director Relationship Specialty Start Date End Date Raquel Rayo MD [address] [place] [address] [place] [address] PCP - General 09/19/10 Courtney Mayfield MD [address] [facility], [facility] [address] [place] [address] Referring Physician Allergy and Immunology 02/12/24 documented as of this encounter
--- OUTSIDE RECORDS SUMMARY | 2025-02-03 08:51 | XMS_ITS | Encounter Summary ---
Author Organization [facility] Address [address] [place] [address] Phone Care Team Providers Care Overcoiler Name Role Phone Raquel Rayo MD Primary Care Provider [phone] Courtney Mayfield MD Unavailable [phone] Reason for Visit * Reason Comments Med Refill Encounter Details Date Type Department Care Team (Late st Contact Info) Description 11/23/2024 Refill [facility] [address] [facility] [address] [place] [address] Courtney Mayfield MD 960 [facility], [facility] [address] [place], [place] [phone] Gastro-esophageal reflux disease without esophagitis Social History Tobacco Use Types Packs/Day Years [...] from your doctor or pharmacy? Sometimes 01/02/2024 [facility] Utilities Answer Date Recorded In [...] How often do you attend chur or worship services? More than 4 times per year 07/24/2024 Do you belong to any clubs o r organizations such as roman catholic groups, unions, fraternal or athletic groups, [...] Recorded Patient Health Questionnaire-2 Score 0 09/12/2024 [facility] - Occupational Stress Questionnaire Answer [...] any time in the past 12 m [facility], were you homeless or living [...] Description 02/08/2025 11:20 AM EDT Procedure Visit [facility] [address] [place] [address] Jodie Matthews MD [address] [place], [place] [phone] 02/14/2025 11:00 AM EDT Office Visit Isabela Morgan [address] [place] [address] Mina Betts MD MPH [address] [place] [address] 02/17/2025 11:30 AM EDT Telemedicine [facility] Recovery [facility] [address] [place] [phone] Leonila Kern APRN-LINE ASSIGNER [address] [facility] Recovery [facility], [address] [place] [address] 04/24/2025 2:45 PM EST Office Visit [facility] [address] [address] Courtney Mayfield MD [address] [facility], [facility] [address] [place] [address] 06/21/2025 10:30 AM EST Office Visit [facility] [address] [phone] Jessica Moore, LACE WEAVER-LINE ASSIGNER [address] [phone] documented as of this encounter Visit Diagnoses Diagnosis Gastro-esophageal reflux disease without esophagitis documented in this encounter Additional Health Concerns Assessment Noted Time PHQ-9 Depression Total Score: 23 025 11:53 AM EDT A fall risk assessment has been complete d for the patient 09/12/2024 2:25 PM EDT documented as of this encounter Care Teams Overcoiler Relationship Specialty Start Date End Date Raquel Rayo MD [address] [place] [address] PCP - General 09/19/10 Courtney Mayfield MD [address] [facility], [address] [phone] Referring Physician Allergy and Immunology 02/12/24 documented as of this encounter
--- OUTSIDE RECORDS SUMMARY | 2025-02-03 08:51 | XMS_ITS | Encounter Summary ---
Author Organization [facility] Address [address] [place] [address] Phone Care Team Providers Care Certified Green Building Engineer Name Role Phone Raquel Rayo MD Primary Care Provider [phone] Courtney Mayfield MD Unavailable [phone] Encounter Details Date Type Department Care Team (Late st Contact Info) Description 04/20/2023 Scanned Document [facility] [address] [place] [address] Courtney Mayfield MD 960 [facility], [facility] [address] [place], [place] [phone] Social History Tobacco Use Types Packs/Day Years [...] Description 02/08/2025 11:20 AM EDT Procedure Visit [facility] [address] [place] [address] Jodie Matthews MD [address] [place], [place] [phone] 02/14/2025 11:00 AM EDT Office Visit Isabela Mitch Eddie [address] [place] [address] Mina Betts MD MPH [address] [place] [address] 02/17/2025 11:30 AM EDT Telemedicine [facility] [address] [place] [address] Leonila Kern FINANCIAL REPORTING ADVISOR-SHOP WELDER [address] [place] [facility], [facility] 130 [place] [address] 04/24/2025 2:45 PM EST Office Visit [facility] [address] [facility] [address] [place] [address] Courtney Mayfield MD [address] [facility], [facility] [address] [place], [place] [phone] 06/21/2025 10:30 AM EST Office Visit [facility] [address] [place] [address] Jessica Moroe, FINANCIAL REPORTING ADVISOR-SHOP WELDER [address] [place], [place] [phone] documented as of this encounter Visit Diagnoses Not on filedocumented in this encounter Additional Health Concerns Assessment Noted Time PHQ-9 Depression Total Score: 11 023 10:35 AM EDT A fall risk assessment has been complete d for the patient 02/16/2023 10:23 AM EDT documented as of this encounter Care Teams Certified Green Building Engineer Relationship Specialty Start Date End Date Raquel Rayo MD [address] [place] [address] [place] [address] PCP - General 09/19/10 Courtney Mayfield MD [address] [place] [address], [facility] [address] [place] [phone] Referring Physician Allergy and Immunology 02/12/24 documented as of this encounter
--- OUTSIDE RECORDS SUMMARY | 2025-02-03 08:51 | XMS_ITS | Encounter Summary ---
Author Organization [facility] Address [address] [place] [address] Phone Care Team Providers Care Viscosity Inspector Name Role Phone Raquel Rayo MD Primary Care Provider [phone] Courtney Mayfield MD Unavailable [phone] Encounter Details Date Type Department Care Team (Late st Contact Info) Description 03/21/2020 Orders Only [facility] [address] [place] [address] Conversion, Onbase Social History Tobacco Use Types [...] Description 02/08/2025 11:20 AM EDT Procedure Visit [facility] [address] [place] [address] Jodie Matthews MD [address] [place], [place] [phone] 02/14/2025 11:00 AM EDT Office Visit Isabela Morgan [address] [place] [address] Mina Betts MD MPH [address] [place] [address] 02/17/2025 11:30 AM EDT Telemedicine [facility] [address] [facility] 130 [place] [address] Leonila Kern DIRECTOR OF MARKETING ANALYTICS-HYDROGENATION OPERATOR [address] [facility], [facility] 130 [place] [address] 04/24/2025 2:45 PM EST Office Visit [facility] [address] [facility] [address] [place] [address] Courtney Mayfield MD [address] [facility], [facility] [address] [place] [address] 06/21/2025 10:30 AM EST Office Visit [facility] [address] [facility] [address] [place] [address] Jessica Moore, DIRECTOR OF MARKETING ANALYTICS-HYDROGENATION OPERATOR [address] [facility] [address] [place] [address] Scheduled Orders Name Type Priority Associated Diagnoses Orde r Schedule SLEEP STUDY ORDER - ONBASE SCAN Sleep Center Ordered: 020 documented as of this encounter Visit Diagnoses Not on filedocumented in this encounter Care Teams Viscosity Inspector Relationship Specialty Start Date End Date Raquel Rayo MD [address] [place] [address] [place] [address] PCP - General 09/19/10 Courtney Mayfield MD [address] [facility], [facility] [address] [place] [address] Referring Physician Allergy and Immunology 02/12/24 documented as of this encounter
--- OUTSIDE RECORDS SUMMARY | 2025-02-03 08:51 | XMS_ITS | Encounter Summary ---
Author Organization [facility] Address [address] [place] [address] Phone Care Team Providers Care Ultrasound Technologist Sonographer Name Role Phone Raquel Rayo MD Primary Care Provider [phone] Courtney Mayfield MD Unavailable Encounter Details Date Type Department Care Team (Late st Contact Info) Description 04/20/2023 Scanned Document [facility] [address] [facility] [address] [place] [address] Courtney Mayfield MD 960 [facility], [facility] [address] [place], [place] [phone] Social History Tobacco Use Types Packs/Day Years [...] Description 02/08/2025 11:20 AM EDT Procedure Visit [facility] [address] [place] [address] Jodie Matthews MD [address] [place], [place] [phone] 02/14/2025 11:00 AM EDT Office Visit Isabela Mitch Eddie [address] [place] [address] Mina Betts MD MPH [address] [place] [address] 02/17/2025 11:30 AM EDT Telemedicine [facility] [address] [place] [address] Leonila Kern BIT SANDER-DIRECTOR OF MIDWIFERY/STAFF MIDWIFE 1000 [facility], [facility] 130 [place] [address] 04/24/2025 2:45 PM EST Office Visit [facility] [address] [facility] [address] [place] [address] Courtney Mayfield MD [address] [facility], [facility] [address] [place], [place] [address] 06/21/2025 10:30 AM EST Office Visit [facility] [address] [place] [address] Jessica Moore, BIT SANDER-DIRECTOR OF MIDWIFERY/STAFF MIDWIFE [address] [place], [place] [phone] documented as of this encounter Visit Diagnoses Not on filedocumented in this encounter Additional Health Concerns Assessment Noted Time PHQ-9 Depression Total Score: 11 023 10:35 AM EDT A fall risk assessment has been complete d for the patient 02/16/2023 10:23 AM EDT documented as of this encounter Care Teams Ultrasound Technologist Sonographer Relationship Specialty Start Date End Date Raquel Rayo MD [address] [place] [address] [place] [address] PCP - General 09/19/10 Courtney Mayfield MD [address] [place] [address], [facility] [address] [place] [phone] Referring Physician Allergy and Immunology 02/12/24 documented as of this encounter
--- OUTSIDE RECORDS SUMMARY | 2025-02-03 08:51 | XMS_ITS | Encounter Summary ---
Author Organization [facility] Address [address] [place] [address] Phone Care Team Providers Care Strategic Client Executive Name Role Phone Raquel Rayo MD Primary Care Provider [phone] Courtney Mayfield MD Unavailable Encounter Details Date Type Department Care Team (Late st Contact Info) Description 04/16/2023 Scanned Document [facility] [address] [facility] 160 [place] [address] Courtney Mayfield MD [address] [facility], [address] [place], [place] [phone] Social History Tobacco Use Types Packs/Day Years [...] Description 02/08/2025 11:20 AM EDT Procedure Visit [facility] [address] [place] [address] Jodie Matthews MD [address] [place], [place] [phone] 02/14/2025 11:00 AM EDT Office Visit Isabela Mitch Eddie [address] [place] [address] Mina Betts MD MPH [address] [place] [address] 02/17/2025 11:30 AM EDT Telemedicine [facility] [address] [place] [address] Leonila Kern, ACCOUNT DEVELOPMENT SPECIALIST-PRINT MANAGER 1000 [place] [facility], [facility] 130 [place] [address] 04/24/2025 2:45 PM EST Office Visit [facility] [address] [facility] [address] [place] [address] Courtney Mayfield MD [address] [facility], [facility] [address] [place], [place] [address] 06/21/2025 10:30 AM EST Office Visit [facility] [address] [place] [address] Jessica Moore, ACCOUNT DEVELOPMENT SPECIALIST-PRINT MANAGER [address] [place], [place] [phone] documented as of this encounter Visit Diagnoses Not on filedocumented in this encounter Additional Health Concerns Assessment Noted Time PHQ-9 Depression Total Score: 11 023 10:35 AM EDT A fall risk assessment has been complete d for the patient 02/16/2023 10:23 AM EDT documented as of this encounter Care Teams Strategic Client Executive Relationship Specialty Start Date End Date Raquel Rayo MD [address] [place] [address] [place] [address] PCP - General 09/19/10 Courtney Mayfield MD [address] [facility], [facility] [address] [place] [phone] Referring Physician Allergy and Immunology 02/12/24 documented as of this encounter
--- OUTSIDE RECORDS SUMMARY | 2025-02-03 08:52 | XMS_ITS | Encounter Summary ---
Author Organization [facility] Address [address] [place] [address] Phone Care Team Providers Care Sales Contract Administrator Name Role Phone Raquel Rayo MD Primary Care Provider [phone] Courtney Mayfield MD Unavailable [phone] Encounter Details Date Type Department Care Team (Late st Contact Info) Description 03/10/2018 Orders Only [facility] [address] [place] [address] Conversion, Onbase Social History Tobacco Use Types [...] Description 02/08/2025 11:20 AM EDT Procedure Visit [facility] [address] [place] [address] Jodie Matthews MD [address] [place], [place] [phone] 02/14/2025 11:00 AM EDT Office Visit Isabela Morgan [address] [place] [address] Mina Betts MD MPH [address] [place] [address] 02/17/2025 11:30 AM EDT Telemedicine [facility] [address] [facility] 130 [place] [address] Leonila Kern DATA SCIENTIST-BUILDING INSPECTION ENGINEER [address] [facility], [facility] 130 [place] [address] 04/24/2025 2:45 PM EST Office Visit [facility] [address] [facility] [address] [place] [address] Courtney Mayfield MD [address] [facility], [facility] [address] [place] [address] 06/21/2025 10:30 AM EST Office Visit [facility] [address] [facility] 170 [place] [address] Jessica Moore, DATA SCIENTIST-BUILDING INSPECTION ENGINEER [address] [facility] 170 [place] [address] Scheduled Orders Name Type Priority Associated Diagnoses Orde r Schedule AUDIOLOGY REPORT - ONBASE SCAN Audiology Ordered: 018 documented as of this encounter Visit Diagnoses Not on filedocumented in this encounter Care Teams Sales Contract Administrator Relationship Specialty Start Date End Date Raquel Rayo MD [address] [place] [address] PCP - General 09/19/10 Courtney Mayfield MD [address] [facility], [facility] [address] [place] [address] Referring Physician Allergy and Immunology 02/12/24 documented as of this encounter
--- OUTSIDE RECORDS SUMMARY | 2025-02-03 08:52 | XMS_ITS | Encounter Summary ---
Author Organization [facility] Address [address] [place] [address] Phone Care Team Providers Care Client Project Coordinator Name Role Phone Raquel Rayo MD Primary Care Provider [phone] Courtney Mayfield MD Unavailable [phone] Encounter Details Date Type Department Care Team (Late st Contact Info) Description 06/25/2021 Orders Only [facility] LEGACY [address] [place] [address] Conversion, Onbase Social History Tobacco Use Types [...] Description 02/08/2025 11:20 AM EDT Procedure Visit [facility] [address] [place] [address] Jodie Matthews MD [address] [place], [place] [address] 02/14/2025 11:00 AM EDT Office Visit Isabela Morgan [address] [place] [address] Mina Betts MD MPH [address] [place] [phone] 02/17/2025 11:30 AM EDT Telemedicine [facility] [address] [facility] 130 [place] [address] Leonila Kern TIPPLE BOSS-COMPLIANCE CONSULTANT [address] [facility], [facility] 130 [place] [address] 04/24/2025 2:45 PM EST Office [facility] [address] [facility] [address] [place] [address] Courtney Mayfield MD [address] [facility], [facility] [address] [place] [address] 06/21/2025 10:30 AM EST Office Visit [facility] [address] [facility] [address] [place] [address] Jessica Moore, TIPPLE BOSS-COMPLIANCE CONSULTANT [address] [facility] [address] [place] [address] Scheduled Orders Name Type Priority Associated Diagnoses Orde r Schedule OUTSIDE LAB SCAN Lab Ordered: 06/25/2021 documented as of this encounter Visit Diagnoses Not on filedocumented in this encounter Care Teams Client Project Coordinator Relationship Specialty Start Date End Date Raquel Rayo MD [address] [place] [address] [place] [address] PCP - General 09/19/10 Courtney Mayfield MD [address] [facility], [facility] [address] [place] [address] Referring Physician Allergy and Immunology 02/12/24 documented as of this encounter
--- OUTSIDE RECORDS SUMMARY | 2025-02-03 08:52 | XMS_ITS | Encounter Summary ---
Author Organization [facility] Address [address] [place] [address] Phone Care Team Providers Care Equipment Detailer Name Role Phone Raquel Rayo MD Primary Care Provider [phone] Courtney Mayfield MD Unavailable [phone] Encounter Details Date Type Department Care Team (Late st Contact Info) Description 09/19/[address] [facility] [address] [place] [address] Courtney Mayfield MD [address] [facility], [facility] [address] [place] [phone] Social History Tobacco Use Types Packs/Day Years [...] from your doctor or pharmacy? Sometimes 01/02/2024 [facility] Utilities Answer Date Recorded In [...] How often do you attend chur or moravian services? More than 4 times per year 07/24/2024 Do you belong to any clubs o r organizations such as orthodoxy groups, unions, fraternal or athletic groups, or [...] Recorded Patient Health Questionnaire-2 Score 0 09/12/2024 [facility] of Occupat ional Health - Occupational [...] any time in the past 12 m [facility], were you homeless or living in [...] Description 02/08/2025 11:20 AM EDT Procedure Visit [facility] [address] [place] [address] Jodie Matthews MD [address] [place], [place] [phone] 02/14/2025 11:00 AM EDT Office Visit Isabela Morgan [address] [place] [address] Mina Betts MD MPH [address] [place] [address] 02/17/2025 11:30 AM EDT Telemedicine [facility] [address] [place] [address] Leonila Kern, LUIS-DISPOSAL MAN [address] [facility], [facility] 130 [place] [address] 04/24/2025 2:45 PM EST Office Visit [facility] [address] [facility] [address] [place] [address] Courtney Mayfield MD [address] [facility], [facility] [address] [place] [address] 06/21/2025 10:30 AM EST Office Visit [facility] [address] [phone] Jessica Moore, DONOR RECRUITER-DISPOSAL MAN [address] [address] documented as of this encounter Visit Diagnoses Not on filedocumented in this encounter Additional Health Concerns Assessment Noted Time PHQ-9 Depression Total Score: 23 025 11:53 AM EDT A fall risk assessment has been complete d for the patient 09/12/2024 2:25 PM EDT documented as of this encounter Care Teams Equipment Detailer Relationship Specialty Start Date End Date Raquel Rayo MD [address] [place] [address] PCP - General 09/19/10 Courtney Mayfield MD [address] [facility], [facility] [address] [place] [address] Referring Physician Allergy and Immunology 02/12/24 documented as of this encounter
--- OUTSIDE RECORDS SUMMARY | 2025-02-03 08:52 | XMS_ITS | Encounter Summary ---
Author Organization [facility] Address [address] [place] [address] Phone Care Team Providers Care Manager Account Management Name Role Phone Raquel Rayo MD Primary Care Provider [phone] Courtney Mayfield MD Unavailable [phone] Encounter Details Date Type Department Care Team (Late st Contact Info) Description 09/20/2024 Scanned Document [facility] [address] [place] [address] Courtney Mayfield MD 960 [facility], [facility] [address] [id number] Social History Tobacco Use Types Packs/Day Years [...] doctor or pharmacy? Sometimes 01/02/2024 [facility] Utilities Answer Date Recorded In the past [...] How often do you attend chur or confucianist services? More than 4 times per year 07/24/2024 Do you belong to any clubs o r organizations such as scientologist groups, unions, fraternal or athletic groups, or [...] Recorded Patient Health Questionnaire-2 Score 0 09/12/2024 [facility] - Occupational [...] any time in the past 12 m [facility], were you homeless or living in a intermediate (including now)? No 07/24/2024 Sex and Gender [...] Description 02/08/2025 11:20 AM EDT [facility] [address] [place] [address] Jodie Matthews MD [address] [place], [place] [phone] 02/14/2025 11:00 AM EDT Office Visit [facility] [address] [place] [address] Mina Betts MD MPH [address] [place] [address] 02/17/2025 11:30 AM EDT Telemedicine [facility] [address] [place] [address] Leonila Kern, LUIS-DRAMATIC READER [address] [facility], [facility] [address] [place] [address] 04/24/2025 2:45 PM EST Office Visit [facility] [address] [facility] [address] [place] [address] Courtney Mayfield MD [address] [facility], [facility] [address] [place] [address] 06/21/2025 10:30 AM EST Office Visit [facility] [address] [phone] Jessica Moore, SALES ADMINISTRATOR-DRAMATIC READER [address] [address] documented as of this encounter Visit Diagnoses Not on filedocumented in this encounter Additional Health Concerns Assessment Noted Time PHQ-9 Depression Total Score: 23 025 11:53 AM EDT A fall risk assessment has been complete d for the patient 09/12/2024 2:25 PM EDT documented as of this encounter Care Teams Manager Account Management Relationship Specialty Start Date End Date Raquel Rayo MD [address] [place] [address] PCP - General 09/19/10 Courtney Mayfield MD [address] [facility], [facility] [address] [place] [address] Referring Physician Allergy and Immunology 02/12/24 documented as of this encounter
--- OUTSIDE RECORDS SUMMARY | 2025-02-03 08:52 | XMS_ITS | Patient Health Record ---
Author Organization [facility] Address [address] [place] [address] Care Team Providers Care Kiln Operator Helper Name Role Phone Dipesh Rosa Primary Care Provider Allergies Allergen (clinical drug ingredient) Drug/Non Drug Allergy documented on EMR Reaction Allergy Type Onset Date Status chocolate (uncoded) Unknown Allergy Active grass (uncoded) Unknown Allergy Acti ve Monosodium glutamate msg (uncoded) Unknown Allergy Active pine trees (uncoded) Unknown Allergy Active ciprofloxacin Cipro Unknown Drug Allergy Act samanta indomethacin Indocin Unknown Drug Allergy Acti ve baclofen Baclofen Unknown Drug Allergy Active Penicillin Unknown Drug Allergy Active propranolol Propranolol Unknown Drug Allergy Act samanta Substance with sulfonamide structure and antibacterial mechanism of action (substance) Sulfa Antibiotics Unknown Drug Allergy Active Reason For Referral No Information Medications Medication SIG (Take, Route, Frequency, Duration) Notes Start Date End Date Status Amitriptyline HCl 100 MG 1 tablet Orally Once a day Active Effexor XR 75 MG 2 tablets in the mor grace, 1 tablet at night Orally as directed Active Social History Tobacco Use: Social History Observation Description Date Details (start date - stop date) Never Smoker NA - NA Tobacco Screen: Question Answer Notes Are you a: never smoker Alcohol Screening: Question Answer Notes Did you have a drink containing alcohol in the p ast year? No Points 0 Interpretation Negative Depression Screening (PHQ-9): Question Answer Notes Little interest or pleasure in doing things Sujatha ral days Feeling down, depressed, or hopeless More than h skilled nursing the days Trouble falling or staying asleep, or sleeping t oo much Nearly every day Feeling tired or having little energy Several da ys Poor appetite or overeating Not at all Feeling bad about yourself-o r that you are a failure or have let yourself or your family down Several days Trouble concentrating on thi ngs, such as reading the newspaper or watching television Several days Moving or speaking so slowly that other people could have noticed. Or the opposite being so fidgety or restless that you have been moving around a lot more than usual Several days Thoughts that you would be b crystal off , or of hurting yourself in some way Not at all Total Score 10 Intepretation Moderate Depression Problems Problem Type SNOMED Code ICD Code Onset Dates Problem Status W/U Status Risk Notes Problem Moderate recurrent major depression (57565146) Major depressive disorder, recurrent episode, moderate (F33.1) Active confirmed Problem Anxiety disorder (921646643) Other Specified Anxiety Disorder (F41.8) Active confirmed Plan Of Treatment No Information Insurance Providers Payer Name Payer Address Payer Phone Subscriber Number Group Number Insured Name Patient Relationship to Insured Coverage Start Date Coverage End Date [facility] MEDICARE ADVANTAGE [address] [place] [address] [id number] [facility] VERNA NEELY Self - patient is the insured 3 Medical (General) History Medical History History ICD Code Borderline Hypertension COVID Longhaul Brain Fog Shortness of breath COPD Hx of falling Migraines Low immune system Hx of stroke Surgical History Surgery Date(Month/Year) 16 knee surgery Hospitalization History Reason Date(Month/Year) Stroke
--- OUTSIDE RECORDS SUMMARY | 2025-02-03 08:52 | XMS_ITS | Encounter Summary ---
Author Organization [facility] Address [address] [place] [address] Phone Care Team Providers Care Accounting Methods Analyst Name Role Phone Raquel Rayo MD Primary Care Provider [phone] Courtney Mayfield MD Unavailable [phone] Encounter Details Date Type Department Care Team (Late st Contact Info) Description 08/11/2022 Orders Only [facility] [address] [place] [address] Conversion, Onbase Social History Tobacco Use Types [...] Description 02/08/2025 11:20 AM EDT Procedure Visit [facility] [address] [place] [phone] Jodie Matthews MD [address] [place], [place] [phone] 02/14/2025 11:00 AM EDT Office Visit Isabela Morgan [address] [place] [address] Mina Betts MD MPH [address] [place] [phone] 02/17/2025 11:30 AM EDT Telemedicine [facility] [address] [facility] [address] [place] [address] Leonila Kern SURVEILLANCE DIRECTOR-ACCESSORIES REPAIRER [address] [facility], [facility] [address] [place] [address] 04/24/2025 2:45 PM EST Office Visit [facility] [address] [facility] [address] [place] [address] Courtney [place] MD [address] [facility], [facility] [address] [place] [address] 06/21/2025 10:30 AM EST Office Visit [facility] [address] [facility] [address] [place] [address] Jessica Moore, SURVEILLANCE DIRECTOR-ACCESSORIES REPAIRER [address] [facility] [address] [place] [address] Scheduled Orders Name Type Priority Associated Diagnoses Orde r Schedule OUTSIDE LAB SCAN Lab Ordered: 08/11/2022 documented as of this encounter Visit Diagnoses Not on filedocumented in this encounter Care Teams Accounting Methods Analyst Relationship Specialty Start Date End Date Raquel Rayo MD [address] [place] [address] [place] [address] PCP - General 09/19/10 Courtney Mayfield MD [address] [facility], [facility] [address] [place] [address] Referring Physician Allergy and Immunology 02/12/24 documented as of this encounter
--- OUTSIDE RECORDS SUMMARY | 2025-02-03 08:52 | XMS_ITS | Encounter Summary ---
Author Organization [facility] Address [address] [place] [address] Phone Care Team Providers Care Material Expeditor Name Role Phone Raquel Rayo MD Primary Care Provider Courtney Mayfield MD Unavailable [phone] Encounter Details Date Type Department Care Team (Late st Contact Info) Description 12/29/2022 Scanned Document [facility] [address] [place] [address] Conversion, Onbase Social History Tobacco Use Types Packs/Day Years Used Date Smoking Tobacco: Never Assessed PHQ-2 Answer Date Recorded Patient Health Questionnaire-2 Score 4 09/03/2022 Sex and Gender Information Value Date Recorded Sex Assigned at Not on file Legal Sex Male 11:51 PM EST Gender Identity Not on file Sexual Orientation Not on file documented as of this encounter Functional Status * BP Answer Date of Assessment Author 120/70 12/30/2022 11:24 AM EDT Conversi on, Allscripts Touchworks Vitals documented as of this encounter Plan of Treatment Upcoming Encounters Date Type Department Care Team (Late st Contact Info) Description 02/08/2025 11:20 AM EDT Procedure [facility] [address] [place] [phone] Jodie Matthews MD [address] [place] [address] 02/14/2025 11:00 AM EDT Office Visit Isabela Morgan [address] [place] [address] Mina Betts MD MPH [address] [place] [address] 02/17/2025 11:30 AM EDT Telemedicine [facility] Recovery [facility] [address] [facility] 130 [place] [address] Leonila Kern SEASONAL DELIVERY DRIVER-COOPERATIVE EDUCATION DIRECTOR [address] [facility], [facility] 130 [place] [address] 04/24/2025 2:45 PM EST Office Visit [facility] [address] [facility] [address] [place] [address] Courtney Mayfield MD [address] [facility], [facility] [address] [place] [address] 06/21/2025 10:30 AM EST Office Visit [facility] [address] [facility] [address] [place] [phone] Jessica Moore, SEASONAL DELIVERY DRIVER-COOPERATIVE EDUCATION DIRECTOR [address] [place] [address] documented as of this encounter Visit Diagnoses Not on filedocumented in this encounter Additional Health Concerns Assessment Noted Time PHQ-9 Depression Total Score: 11 023 10:35 AM EDT documented as of this encounter Care Teams Material Expeditor Relationship Specialty Start Date End Date Raquel Rayo MD [address] [place] [address] [place] [address] PCP - General 09/19/10 Courtney Mayfield MD [address] [facility], [address] [address] Referring Physician Allergy and Immunology 02/12/24 documented as of this encounter
--- OUTSIDE RECORDS SUMMARY | 2025-02-03 08:52 | XMS_ITS | Encounter Summary ---
Author Organization [facility] Address [address] [place] [address] Phone Care Team Providers Care Tool Crib Supervisor Name Role Phone Raquel Rayo MD Primary Care Provider [phone] Courtney Mayfield MD Unavailable [phone] Encounter Details Date Type Department Care Team (Latest Contact Info) Description 11/13/[address] 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 [address] [place] [address] Jodie Matthews MD [address] [facility] [address] [place], [place] [phone] 02/14/2025 11:00 AM EDT Office Visit Isabela Morgan [address] [place] [address] [facility] [address] [place] [address] 02/17/2025 11:30 AM EDT Telemedicine [facility] [address] [facility] [address] [place] [address] Leonila Kern, IT SERVICE CONTINUITY SUPERVISOR-WEFT STRAIGHTENER [address] [facility], [facility] [address] [place] [address] 04/24/2025 2:45 PM EST Office Visit [facility] [address] [facility] [address] [place] [address] Courtney Mayfield MD [address] [facility], [facility] [address] [place] [address] 06/21/2025 10:30 AM EST Office Visit [facility] [address] 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 [address] [place] [address] Referring Physician Allergy and Immunology 02/12/24 documented as of this encounter
--- OUTSIDE RECORDS SUMMARY | 2025-02-03 08:52 | XMS_ITS | Encounter Summary ---
Author Organization [facility] Address [address] [place] [address] Phone Care Team Providers Care Pathology Manager Name Role Phone Raquel Rayo MD Primary Care Provider [phone] Courtney Mayfield MD Unavailable Encounter Details Date Type Department Care Team (Late st Contact Info) Description 11/13/2023 Scanned Document [facility] [address] [facility] [address] [place] [address] Courtney Mayfield MD 960 [facility], [facility] [address] [place], [place] [phone] Social History Tobacco Use Types Packs/Day Years [...] Description 02/08/2025 11:20 AM EDT Procedure Visit [facility] [address] [facility] [address] [place] [address] Jodie Matthews MD [address] [place] [address] 02/14/2025 11:00 AM EDT Office Visit Isabela Morgan [address] [place] [address] Mina Betts MD MPH [address] [place] [address] 02/17/2025 11:30 AM EDT Telemedicine [facility] [address] [place] [address] Leonila Kern APRN-HVAC FIELD SERVICE TECHNICIAN [address] [facility], [facility] [address] [place] [address] 04/24/2025 2:45 PM EST Office Visit [facility] [address] [facility] [address] [place] [address] Courtney Mayfield MD [address] [facility], [facility] [address] [place] [address] 06/21/2025 10:30 AM EST Office Visit [facility] [address] [place] [phone] Jessica Moore, TEARER-HVAC FIELD SERVICE TECHNICIAN [address] [place] [address] documented as of this encounter Visit Diagnoses Not on filedocumented in this encounter Additional Health Concerns Assessment Noted Time PHQ-9 Depression Total Score: 14 024 10:35 AM EDT A fall risk assessment has been complete d for the patient 10/08/2023 10:34 AM EDT documented as of this encounter Care Teams Pathology Manager Relationship Specialty Start Date End Date Raquel Rayo MD [address] [place] [address] [place] [address] PCP - General 09/19/10 Courtney Mayfield MD [address] [facility], [address] [place] [phone] Referring Physician Allergy and Immunology 02/12/24 documented as of this encounter
--- OUTSIDE RECORDS SUMMARY | 2025-02-03 08:52 | XMS_ITS | Encounter Summary ---
Author Organization [facility] Address [address] [place] [address] Phone Care Team Providers Care Instrument Technologist Name Role Phone Raquel Rayo MD Primary Care Provider [phone] Courtney Mayfield MD Unavailable [phone] Encounter Details Date Type Department Care Team (Late st Contact Info) Description 01/08/2023 Scanned Document [facility] [address] [place] [address] Conversion, Onbase Social History Tobacco Use Types [...] [facility] [address] [place] [address] Jodie Matthews MD [address] [place] [address] 02/14/2025 11:00 AM EDT Office Visit [facility] [address] [place] [address] Mina Betts MD MPH [address] [facility] [address] [place] [address] 02/17/2025 11:30 AM EDT Telemedicine [facility] [address] [facility] [address] [place] [address] Leonila Kern MERCHANDISE PLANNING MANAGER-C 13 CATAPULT OPERATOR [address] [facility], [facility] [address] [place] [address] 04/24/2025 2:45 PM EST Office Visit [facility] [address] [facility] [address] [place] [address] Courtney Mayfield MD [address] [facility], [facility] [address] [place] [address] 06/21/2025 10:30 AM EST Office [facility] [address] [facility] [address] [place] [address] Jessica Moore, MERCHANDISE PLANNING MANAGER-C 13 CATAPULT OPERATOR [address] [facility] [address] [place], [place] [phone] documented as of this encounter Visit Diagnoses Not on filedocumented in this encounter Additional Health Concerns Assessment Noted Time PHQ-9 Depression Total Score: 11 023 10:35 AM EDT documented as of this encounter Care Teams Instrument Technologist Relationship Specialty Start Date End Date Raquel Rayo MD [address] [place] [address] [place] [address] PCP - General 09/19/10 Courtney Mayfield MD [address] [facility], [facility] [address] [place] [address] Referring Physician Allergy and Immunology 02/12/24 documented as of this encounter
--- OUTSIDE RECORDS SUMMARY | 2025-02-03 08:52 | XMS_ITS | Encounter Summary ---
Author Organization [facility] Address [address] [place] [address] Phone Care Team Providers Care Assistant To The Dean Name Role Phone Raquel Rayo MD Primary Care Provider [phone] Courtney Mafyield MD Unavailable [phone] Encounter Details Date Type Department Care Team (Late st Contact Info) Description 08/20/2021 Orders Only [facility] [address] [place] [address] Conversion, Onbase Social History Tobacco Use Types Packs/Day Years Used Date Smoking Tobacco: Never Assessed Sex and Gender Information Value Date Recorded Sex Assigned at Not on file Legal Sex Male 11:51 PM EST Gender Identity Not on file Sexual Orientation Not on file documented as of this encounter Functional Status * BP Answer Date of Assessment Author 112/70 08/21/2021 4:33 PM EDT Conversio n, Allscripts Touchworks Vitals * Pulse Answer Date of Assessment Author 92 08/21/2021 4:33 PM EDT Conversio n, Allscripts Touchworks Vitals documented as of this encounter Plan of Treatment Upcoming Encounters Date Type Department Care Team (Late st Contact Info) Description 02/08/2025 11:20 AM EDT Procedure Visit [facility] [address] [place] [phone] Jodie Matthews MD [address] [place], [place] [phone] 02/14/2025 11:00 AM EDT Office Visit Isabela Morgan [address] [place] [facility] 200 [place] [address] Mina Betts MD [facility] [address] [place] [address] 02/17/2025 11:30 AM EDT Telemedicine [facility] Recovery [facility] [address] [place] [facility] 130 [place] [address] Leonila Kern WASTE COLLECTION DRIVER-COMMUNITY EDUCATION SPECIALIST 1000 [facility], [facility] 130 [place] [address] 04/24/2025 2:45 PM EST Office Visit [facility] [address] [facility] [address] [place] [address] Courtney Mayfield MD [address] [facility], [facility] [address] [place] [address] 06/21/2025 10:30 AM EST Office Visit [facility] [address] [place] [address] Jessica Moore, WASTE COLLECTION DRIVER-COMMUNITY EDUCATION SPECIALIST [address] [place] [address] Scheduled Orders Name Type Priority Associated Diagnoses Orde r Schedule OUTSIDE LAB SCAN Lab Ordered: 08/20/2021 documented as of this encounter Visit Diagnoses Not on filedocumented in this encounter Care Teams Assistant To The Dean Relationship Specialty Start Date End Date Raquel Rayo MD [address] [place] [address] [place] [address] PCP - General 09/19/10 Courtney Mayfield MD [address] [facility], [address] [place] [address] Referring Physician Allergy and Immunology 02/12/24 documented as of this encounter
--- OUTSIDE RECORDS SUMMARY | 2025-02-03 08:52 | XMS_ITS | Encounter Summary ---
Author Organization [facility] Address [address] [place] [address] Phone Care Team Providers Care Supervisor Spinning Name Role Phone aRquel Rayo MD Primary Care Provider [phone] Courtney Mayfield MD Unavailable [phone] Encounter Details Date Type Department Care Team (Late st Contact Info) Description 01/15/2023 Scanned Document [facility] [address] [place] [place] [address] Conversion, Onbase Social History Tobacco Use Types [...] Description 02/08/2025 11:20 AM EDT Procedure Visit [facility] [address] [place] [address] Jodie Matthews MD [address] [place] [address] 02/14/2025 11:00 AM EDT Office Visit Isabela Morgan [facility] [address] [place] [address] Mina Betts MD MPH [address] [facility] 200 [place] [address] 02/17/2025 11:30 AM EDT Telemedicine [facility] [address] [facility] 130 [place] [address] Leonila Kern RECREATION OFFICER-ART DEALER [address] [facility], [facility] 130 [place] [address] 04/24/2025 2:45 PM EST Office Visit [facility] [address] [facility] [address] [place] [address] Courtney Mayfield MD [address] [facility], [facility] [address] [place] [address] 06/21/2025 10:30 AM EST Office Visit [facility] [address] [facility] [address] [place] [address] Jessica Moore, RECREATION OFFICER-ART DEALER [address] [facility] [address] [place], [place] [phone] documented as of this encounter Visit Diagnoses Not on filedocumented in this encounter Additional Health Concerns Assessment Noted Time PHQ-9 Depression Total Score: 11 023 10:35 AM EDT documented as of this encounter Care Teams Supervisor Spinning Relationship Specialty Start Date End Date Raquel Rayo MD [address] [place] [address] [place] [address] PCP - General 09/19/10 Courtney Mayfield MD [address] [facility], [facility] [address] [place] [address] Referring Physician Allergy and Immunology 02/12/24 documented as of this encounter
--- OUTSIDE RECORDS SUMMARY | 2025-02-03 08:52 | XMS_ITS | Encounter Summary ---
Author Organization [facility] Address [address] [place] [address] Phone Care Team Providers Care Collections Assistant Name Role Phone Raquel Rayo MD Primary Care Provider [phone] Courtney Mayfield MD Unavailable [phone] Encounter Details Date Type Department Care Team (Late st Contact Info) Description 01/06/2023 Orders Only [facility] [address] [place] [address] Conversion, Onbase Social History Tobacco Use Types [...] Description 02/08/2025 11:20 AM EDT Procedure Visit [facility] [address] [place] [address] Jodie Matthews MD [address] [place] [address] 02/14/2025 11:00 AM EDT Office Visit [address]a [address] [place] [address] Mina Betts MD MPH [address] [place] [facility] 200 [place] [address] 02/17/2025 11:30 AM EDT Telemedicine [facility] [address] [facility] 130 [place] [address] Leonila Kern TOBACCO CLOTH RECLAIMER-SALON STYLIST [address] [place] [facility] 130 [place] [address] 04/24/2025 2:45 PM EST Office Visit [facility] [address] [facility] [address] [place] [address] Courtney Mayfield MD [address] [facility], [facility] [address] [place] [address] 06/21/2025 10:30 AM EST Office Visit [facility] [address] [facility] 170 [place] [address] Jessica Moore, TOBACCO CLOTH RECLAIMER-SALON STYLIST [address] [facility] 170 [place], [place] [phone] Scheduled Orders Name Type Priority Associated Diagnoses Orde r Schedule OUTSIDE LAB SCAN Lab Ordered: 01/06/2023 documented as of this encounter Visit Diagnoses Not on filedocumented in this encounter Additional Health Concerns Assessment Noted Time PHQ-9 Depression Total Score: 11 023 10:35 AM EDT documented as of this encounter Care Teams Collections Assistant Relationship Specialty Start Date End Date Raquel Rayo MD [facility] [place] [address] [place] [address] PCP - General 09/19/10 Courtney Mayfield MD [address] [facility], [facility] [address] [place] [address] Referring Physician Allergy and Immunology 02/12/24 documented as of this encounter
--- OUTSIDE RECORDS SUMMARY | 2025-02-03 08:52 | XMS_ITS | Encounter Summary ---
Author Organization [facility] Address [address] [place] [address] Phone Care Team Providers Care Substation Designer Name Role Phone Raquel Rayo MD Primary Care Provider [phone] Courtney Mayfield MD Unavailable [phone] Encounter Details Date Type Department Care Team (Late st Contact Info) Description 11/10/[address] [facility] [address] [facility] [address] [place] [address] Courtney Mayfield MD 960 [facility], [facility] [address] [place], [place] [phone] Social History Tobacco Use Types Packs/Day Years [...] EDT Procedure Visit [facility] [address] [facility] 170 [place] [address] Jodie Matthews MD [address] [place] [place] [address] 02/14/2025 11:00 AM EDT Office Visit Isabela Morgan [address] [place] [address] Mina Betts MD MPH [address] [place] [address] 02/17/2025 11:30 AM EDT Telemedicine [facility] [address] [place] [address] Leonila Kern APRN-INSPECTOR RUBBER STAMP DIE [address] [facility], [facility] 130 [place] [address] 04/24/2025 2:45 PM EST Office Visit [facility] [address] [facility] [address] [place] [address] Courtney Mayfield MD [address] [facility], [facility] [address] [place] [address] 06/21/2025 10:30 AM EST Office Visit [facility] [address] [place] [phone] Jessica Moore, CRA OFFICER-INSPECTOR RUBBER STAMP DIE [address] [place] [address] documented as of this encounter Visit Diagnoses Not on filedocumented in this encounter Additional Health Concerns Assessment Noted Time PHQ-9 Depression Total Score: 14 024 10:35 AM EDT A fall risk assessment has been complete d for the patient 10/08/2023 10:34 AM EDT documented as of this encounter Care Teams Substation Designer Relationship Specialty Start Date End Date Raquel Rayo MD [address] [place] [address] [place] [address] PCP - General 09/19/10 Courtney Mayfield MD [address] [facility], [facility] [address] [place] [phone] Referring Physician Allergy and Immunology 02/12/24 documented as of this encounter
--- OUTSIDE RECORDS SUMMARY | 2025-02-03 08:52 | XMS_ITS | Encounter Summary ---
Author Organization [facility] Address [address] [place] [address] Phone Care Team Providers Care Adjunct Physics Instructor Name Role Phone Raquel Rayo MD Primary Care Provider [phone] Courtney Mayfield MD Unavailable [phone] Encounter Details Date Type Department Care Team (Late st Contact Info) Description 06/14/2021 Orders Only [facility] [address] [place] [address] Conversion, Onbase Social History Tobacco Use Types [...] Description 02/08/2025 11:20 AM EDT Procedure Visit [facility] [address] [place] [address] Jodie Matthews MD [address] [place], [place] [address] 02/14/2025 11:00 AM EDT Office Visit Isabela Morgan [address] [place] [address] Mina Betts MD MPH [address] [place] [address]86-80 02/17/2025 11:30 AM EDT Telemedicine [facility] [address] [facility] 130 [place] [address] Leonila Kern FUR VAULT ATTENDANT-REGIONAL TANKER TRUCK DRIVER [address] [facility], [facility] 130 [place] [address] 04/24/2025 2:45 PM EST Office Visit [facility] [address] [facility] [address] [place] [address] Courtney Mayfield MD [address] [facility], [facility] [address] [place] [address] 06/21/2025 10:30 AM EST Office Visit [facility] [address] [facility] 170 [place] [address] Jessica Moore, FUR VAULT ATTENDANT-REGIONAL TANKER TRUCK DRIVER [address] [facility] 170 [place] [address] Scheduled Orders Name Type Priority Associated Diagnoses Orde r Schedule OUTSIDE LAB SCAN Lab Ordered: 06/14/2021 documented as of this encounter Visit Diagnoses Not on filedocumented in this encounter Care Teams Adjunct Physics Instructor Relationship Specialty Start Date End Date Raquel Rayo MD [address] [place] [address] [place] [address] PCP - General 09/19/10 Courtney Mayfield MD [address] [facility], [facility] [address] [place] [address] Referring Physician Allergy and Immunology 02/12/24 documented as of this encounter
--- OUTSIDE RECORDS SUMMARY | 2025-02-03 08:52 | XMS_ITS | Encounter Summary ---
Author Organization [facility] Address [address] [place] [address] Phone Care Team Providers Care Chopper Operator Name Role Phone Raquel Rayo MD Primary Care Provider [phone] Courtney Mayfield MD Unavailable [phone] Encounter Details Date Type Department Care Team (Late st Contact Info) Description 08/07/2022 Orders Only [facility] [address] [place] [address] Conversion, Onbase Social History Tobacco Use Types [...] Visit [facility] [address] [place] [address] Jodie Matthews MD [address] [place], [place] [address] 02/14/2025 11:00 AM EDT Office Visit Isabela Morgan [address] [place] [address] Mina Betts MD MPH [address] [place] [phone] 02/17/2025 11:30 AM EDT Telemedicine [facility] [address] [facility] 130 [place] [address] Leonila Kern SPORTS FITNESS AND WELLNESS DIRECTOR-CROP GRAIN OR LIVESTOCK FARM MANAGER [address] [facility], [facility] 130 [place] [address] 04/24/2025 2:45 PM EST Office Visit [facility] [address] [facility] [address] [place] [address] Courtney Mayfield MD [address] [facility], [facility] [address] [place] [address] 06/21/2025 10:30 AM EST Office Visit [facility] [address] [facility] [address] [place] [address] Jessica Moore, SPORTS FITNESS AND WELLNESS DIRECTOR-CROP GRAIN OR LIVESTOCK FARM MANAGER [address] [facility] 170 [place] [address] Scheduled Orders Name Type Priority Associated Diagnoses Orde r Schedule OUTSIDE LAB SCAN Lab Ordered: 08/07/2022 documented as of this encounter Visit Diagnoses Not on filedocumented in this encounter Care Teams Chopper Operator Relationship Specialty Start Date End Date Raquel Rayo MD [address] [place] [address] [place] [address] PCP - General 09/19/10 Courtney Mayfield MD [address] [facility], [facility] [address] [place] [address] Referring Physician Allergy and Immunology 02/12/24 documented as of this encounter
--- OUTSIDE RECORDS SUMMARY | 2025-02-03 08:52 | XMS_ITS | Encounter Summary ---
Author Organization [facility] Address [address] [place] [address] Phone Care Team Providers Care Dye Feeder Name Role Phone Raquel Rayo MD Primary Care Provider [phone] Courtney Mayfield MD Unavailable [phone] Encounter Details Date Type Department Care Team (Late st Contact Info) Description 08/21/2023 Scanned Document [facility] [address] [place] [address] Courtney Mayfield MD [address] [facility], [facility] [address] [place], [place] [phone] Social History Tobacco Use Types Packs/Day Years [...] 11:20 AM EDT Procedure Visit [facility] [address] [place] [address] Jodie Matthews MD [address] [place] [address] 02/14/2025 11:00 AM EDT Office Visit Isabela Morgan [address] [place] [address] Mina Betts MD [facility] [address] [place] [address] 02/17/2025 11:30 AM EDT Telemedicine [facility] [address] [place] [address] Leonila Kern INSTRUCTOR WATCH ASSEMBLY-MENTAL HEALTH PROGRAM MANAGER [address] [place] [facility], [facility] 130 [place] [address] 04/24/2025 2:45 PM EST Office Visit [facility] [address] [facility] [address] [place] [address] Courtney Mayfield MD [address] [facility], [facility] [address] [place] [address] 06/21/2025 10:30 AM EST Office Visit [facility] [address] [place] [phone] Jessica Moore, INSTRUCTOR WATCH ASSEMBLY-MENTAL HEALTH PROGRAM MANAGER [address] [place] [address] documented as of this encounter Visit Diagnoses Not on filedocumented in this encounter Additional Health Concerns Assessment Noted Time PHQ-9 Depression Total Score: 10 024 3:38 PM EST A fall risk assessment has been complete d for the patient 06/22/2023 3:38 PM EST documented as of this encounter Care Teams Dye Feeder Relationship Specialty Start Date End Date Raquel Rayo MD [address] [place] [address] [place] [address] PCP - General 09/19/10 Courtney Mayfield MD [address] [facility], [place] [address] Referring Physician Allergy and Immunology 02/12/24 documented as of this encounter
--- OUTSIDE RECORDS SUMMARY | 2025-02-03 08:52 | XMS_ITS | Encounter Summary ---
Author Organization [facility] Address [address] [place] [address] Phone Care Team Providers Care Lithographic General Worker Name Role Phone Raquel Rayo MD Primary Care Provider [phone] Courtney Mayfield MD Unavailable [phone] Encounter Details Date Type Department Care Team (Late st Contact Info) Description 09/15/2024 Scanned Document [facility] [address] [place] [address] Courtney Mayfield MD [address] [facility], [facility] [address] [place] [phone] Social History Tobacco Use Types Packs/Day Years [...] from your doctor or pharmacy? Sometimes 01/02/2024 [facility] Utilities Answer Date Recorded In [...] Recorded Patient Health Questionnaire-2 Score 0 09/12/2024 [facility] - [...] any time in the past 12 m [facility], were you homeless or living in a detention (including now)? No 07/24/2024 Sex and Gender [...] Description 02/08/2025 11:20 AM EDT Procedure Visit [facility] [address] [place] [address] Jodie Matthews MD [address] [place], [place] [phone] 02/14/2025 11:00 AM EDT Office Visit Isabela Morgan [address] [place] [address] Mina Betts MD MPH [address] [place] [address] 02/17/2025 11:30 AM EDT Telemedicine [facility] [address] [place] [address] Leonila Kern, LUIS-VOICE NETWORK ADMINISTRATOR [address] [facility], [facility] 130 [place] [address] 04/24/2025 2:45 PM EST Office Visit [facility] [address] [facility] [address] [place] [address] Courtney Mayfiedl MD [address] [facility], [facility] [address] [place] [address] 06/21/2025 10:30 AM EST Office Visit [facility] [address] [phone] Jessica Moore, PHOTOVOLTAIC SOLAR CELL DESIGNER-VOICE NETWORK ADMINISTRATOR [address] [address] documented as of this encounter Visit Diagnoses Not on filedocumented in this encounter Additional Health Concerns Assessment Noted Time PHQ-9 Depression Total Score: 23 025 11:53 AM EDT A fall risk assessment has been complete d for the patient 09/12/2024 2:25 PM EDT documented as of this encounter Care Teams Lithographic General Worker Relationship Specialty Start Date End Date Raquel Rayo MD [address] [place] [address] PCP - General 09/19/10 Courtney Mayfield MD [address] [facility], [facility] [address] [place] [address] Referring Physician Allergy and Immunology 02/12/24 documented as of this encounter
--- OUTSIDE RECORDS SUMMARY | 2025-02-03 08:52 | XMS_ITS | Encounter Summary ---
Author Organization [facility] Address [address] [place] [address] Phone Care Team Providers Care Sweatband Maker Name Role Phone Raquel Rayo MD Primary Care Provider [phone] Courtney Mayfield MD Unavailable [phone] Encounter Details Date Type Department Care Team (Late st Contact Info) Description 09/19/2024 Scanned Document [facility] [address] [place] [address] Courtney Mayfield MD 960 [facility] [address] [place] [phone] Social History Tobacco Use Types Packs/Day Years [...] How often do you attend chur or buddhist services? More than 4 times per year [...] Recorded Patient Health Questionnaire-2 Score 0 09/12/2024 [facility] - Occupational [...] any time in the past 12 m [facility], were you homeless or living in a mcfp (including now)? No 07/24/2024 Sex and Gender [...] Description 02/08/2025 11:20 AM EDT Procedure Visit [facility] [address] [place] [address] Jodie Matthews MD [address] [place], [place] [phone] 02/14/2025 11:00 AM EDT Office Visit Isabela Morgan [address] [place] [address] Mina Betts MD MPH [address] [place] [address] 02/17/2025 11:30 AM EDT Telemedicine [facility] [address] [place] [address] Leonila Kern, LUIS-SOCIAL MEDIA DEVELOPER [address] [facility], [facility] 130 [place] [address] 04/24/2025 2:45 PM EST Office Visit [facility] [address] [facility] [address] [place] [address] Courtney Myafield MD [address] [facility], [facility] [address] [place] [address] 06/21/2025 10:30 AM EST Office Visit [facility] [address] [phone] Jessica Moore, QUALITY NURSE-SOCIAL MEDIA DEVELOPER [address] [address] documented as of this encounter Visit Diagnoses Not on filedocumented in this encounter Additional Health Concerns Assessment Noted Time PHQ-9 Depression Total Score: 23 025 11:53 AM EDT A fall risk assessment has been complete d for the patient 09/12/2024 2:25 PM EDT documented as of this encounter Care Teams Sweatband Maker Relationship Specialty Start Date End Date Raquel Rayo MD [address] [place] [address] PCP - General 09/19/10 Courtney Mayfield MD [address] [facility], [facility] [address] [place] [address] Referring Physician Allergy and Immunology 02/12/24 documented as of this encounter
--- OUTSIDE RECORDS SUMMARY | 2025-02-03 08:52 | XMS_ITS | Encounter Summary ---
Author Organization [facility] Address [address] [place] [address] Phone Care Team Providers Care Mother Superior Name Role Phone Raquel Rayo MD Primary Care Provider [phone] Courtney Mayfield MD Unavailable Encounter Details Date Type Department Care Team (Late st Contact Info) Description 09/20/2024 Scanned Document [facility] [address] [place] [address] Courtney Mayfield MD 960 [facility], [facility] [address] [place] [phone] Social History Tobacco Use Types Packs/Day Years [...] from your doctor or pharmacy? Sometimes 01/02/2024 [facility] Utilities Answer Date Recorded In [...] How often do you attend chur or voodoo services? More than 4 times per year 07/24/2024 Do you belong to any clubs o r organizations such as episcopalian groups, unions, fraternal or athletic groups, or [...] Recorded Patient Health Questionnaire-2 Score 0 09/12/2024 [facility]at ional Health [...] any time in the past 12 m [facility], were you homeless or living in [...] Description 02/08/2025 11:20 AM EDT Procedure Visit [facility] [address] [place] [address] Jodie Matthews MD [address] [place], [place] [phone] 02/14/2025 11:00 AM EDT Office Visit Isabela Morgan [address] [place] [address] Mina Betts MD MPH [address] [place] [address] 02/17/2025 11:30 AM EDT Telemedicine [facility] [address] [place] [address] Leonila Kern, LUIS-SMOKING PIPE MOUNTER [address] [facility], [facility] 130 [place] [address] 04/24/2025 2:45 PM EST Office Visit [facility] [address] [facility] [address] [place] [address] Courtney Mayfield MD [address] [facility], [facility] [address] [place] [address] 06/21/2025 10:30 AM EST Office Visit [facility] [address] [phone] Jessica Moore, FREELANCE WEB DESIGNER-SMOKING PIPE MOUNTER [address] [address] documented as of this encounter Visit Diagnoses Not on filedocumented in this encounter Additional Health Concerns Assessment Noted Time PHQ-9 Depression Total Score: 23 025 11:53 AM EDT A fall risk assessment has been complete d for the patient 09/12/2024 2:25 PM EDT documented as of this encounter Care Teams Mother Superior Relationship Specialty Start Date End Date Raquel aRyo MD [address] [place] [address] PCP - General 09/19/10 Courtney Mayfield MD [address] [facility], [facility] [address] [place] [address] Referring Physician Allergy and Immunology 02/12/24 documented as of this encounter
--- OUTSIDE RECORDS SUMMARY | 2025-02-03 08:52 | XMS_ITS | Encounter Summary ---
Author Organization [facility] Address [address] [place] [address] Phone Care Team Providers Care Entry Operator Name Role Phone Raquel Rayo MD Primary Care Provider [phone] Courtney Mayfield MD Unavailable [phone] Encounter Details Date Type Department Care Team (Late st Contact Info) Description 07/28/2023 Scanned Document [facility] [address] [facility] [address] [place] [address] Courtney Mayfield MD 960 [facility], [facility] [address] [place], [place] [phone] Social History Tobacco Use Types Packs/Day Years [...] Visit [facility] [address] [place] [address] Jodie Matthews MD [address] [place], [place] [phone] 02/14/2025 11:00 AM EDT Office Visit Isabelasahil Meyer Eddie [address] [place] [phone] Mina Betts MD MPH [address] [place] [address] 02/17/2025 11:30 AM EDT Telemedicine [facility] [address] [place] [address] Leonila Kern, LATRINE CLEANER-RN TRAVEL [address] [facility], [facility] [address] [place] [address] 04/24/2025 2:45 PM EST Office Visit [facility] [address] [facility] [address] [place] [address] Courtney Mayfield MD [address] [facility], [facility] [address] [place], [place] [phone] 06/21/2025 10:30 AM EST Office Visit [facility] [address] [place] [address] Jessica Moore, LATRINE CLEANER-RN TRAVEL [address] [place], [place] [phone] documented as of this encounter Visit Diagnoses Not on filedocumented in this encounter Additional Health Concerns Assessment Noted Time PHQ-9 Depression Total Score: 10 024 3:38 PM EST A fall risk assessment has been complete d for the patient 06/22/2023 3:38 PM EST documented as of this encounter Care Teams Entry Operator Relationship Specialty Start Date End Date Raquel Rayo MD [address] [place] [address] [place] [address] PCP - General 09/19/10 Courtney Mayfield MD 0 [facility], [facility] [address] [place] [phone] Referring Physician Allergy and Immunology 02/12/24 documented as of this encounter
--- OUTSIDE RECORDS SUMMARY | 2025-02-03 08:52 | XMS_ITS | Encounter Summary ---
Author Organization [facility] Address [address] [place] [address] Phone Care Team Providers Care Service Unit Operator Name Role Phone Raquel Rayo MD Primary Care Provider [phone] Courtney Mayfield MD Unavailable [phone] Reason for Referral * CV Imaging (Routine) - Closed Specialty Diagnoses / Procedures Referred By Contac t Referred To Contact Cardiology Diagnoses Interstitial pulmonary disease, unspecified Shortness of breath Procedures Transthoracic Echo (TTE) Complete GA ECHO TRANSTHORC R-T 2D W/WO M-MODE REC F-UP/LMTD GA DOP ECHOCARD COLOR FLOW VELOCITY MAPPING GA DOP ECHOCARD PULSE WAVE W/SPECTRAL F-UP/LMTD STD Rich Betts MD MPH [address] [place] [address] Phone: tel: fax: Referral ID Status Reason Start Date Expiration Date V isits Requested Visits Authorized [id number] Closed Perform Procedure 02/05/2023 08/04/2023 1 1 Encounter Details Date Type Department Care Team (Latest Contact Info) Description 02/05/2023 Transcribe Orders Isabela Morgan [address] [place] [address] Rich Betts MD MPH [address] [place] [address] Interstitial pulmonary disease, unspecified (Multi) (Primary Dx); [...] Description 02/08/2025 11:20 AM EDT Procedure Visit [facility] [address] [place] [address] Jodie Matthews MD [address] [place] [address] 02/14/2025 11:00 AM EDT Office Visit Isabela Morgan [address] [place] [address] Rich Betts MD MPH [address] [place] [address] 02/17/2025 11:30 AM EDT Telemedicine [facility] Recovery [facility] [address] [place] [address] Leonila Kern APRN-PRATIMA [address] [facility] Recovery [facility], [facility] [address] [place] [address] 04/24/2025 2:45 PM EST Office Visit [facility] [address] [facility] [address] [place] [address] Courtney Mayfield MD [address] [facility], [facility] [address] [place] [address] 06/21/2025 10:30 AM EST Office Visit [facility] [address] [place] [address] Jessica Moore, SILVER BRAZER-MANAGER SMALL BUSINESS [address] [place], [place] [phone] documented as of this encounter Results * TRANSTHORACIC ECHO (TTE) COMPLETE (02/11/2023 8:17 AM EDT) LV A4C EF 57.7 SYNGO 02/11/2023 7:59 AM EDT Narrative SYNGO - 02/11/2023 5:47 PM EDT [address], [address] [place] [address] TRANSTHORACIC ECHOCARDIOGRAM REPORT Patient Name: VERNA NEELY Reading Physician: [id number] Aureliano Black MD Study Date: 02/11/2023 Ordering Provider: [id number] RICH BETTS MRN/PID: [id number] Fellow: Nurse: Date of /Age: 9 1960 / 63 years Business Agent: Elizabeth Costello RDCS, RVT Gender: M Additional Staff: Height: 175.26 cm Admit Date: Weight: 85.73 kg Admission Status: BSA: 2.02 m2 Department Location: [facility] Blood Pressure: 118 /78 mmHg [...] 0.5 m/s (0.6-0.9m/s) PV Max P.1 mmHg [id number] Aureliano Black MD Electronically signed on 02/11/2023 at 5:47:17 PM Final Procedure Note Aureliano Black MD - 02/11/[address], [address] [place] [address] TRANSTHORACIC ECHOCARDIOGRAM REPORT Patient Name: VERNA Isaac Physician: [id number] Rutherford Study Date: 02/11/2023 Ordering Provider: [id number] KALANI BETTS MRN/PID: [id number] Fellow: Nurse: Date of /Age: 9 1960 / 63 years Business Agent: Elizabeth Willingham, RVT Gender: M Additional Staff: Height: 175.26 [...] 0.5 m/s (0.6-0.9m/s) PV Max P.1 mmHg [id number] Aureliano Black MD Electronically signed on 02/11/2023 at 5:47:17 PM Final Rich Betts MD MPH CV ECHO PROCEDURES Missy l Result SYNGO documented in this encounter Visit Diagnoses Diagnosis Interstitial pulmonary disease, unspecified- Primary Shortness of breath Interstitial pulmonary disease, unspecified Shortness of breath documented in this encounter Additional Health Concerns Assessment Noted Time PHQ-9 Depression Total Score: 11 023 10:35 AM EDT documented as of this encounter Care Teams Service Unit Operator Relationship Specialty Start Date End Date Raquel Rayo MD [address] [place] [address] [place] [address] PCP - General 09/19/10 Courtney Mayfield MD [address] [place] [address], [address] [place] [address] Referring Physician Allergy and Immunology 02/12/24 documented as of this encounter
--- OUTSIDE RECORDS SUMMARY | 2025-02-03 08:52 | XMS_ITS | Encounter Summary ---
Author Organization [facility] Address [address] [place] [address] Phone Care Team Providers Care Inter Com Servicer Name Role Phone Raquel Rayo MD Primary Care Provider [phone] Courtney Mayfield MD Unavailable [phone] Encounter Details Date Type Department Care Team (Late st Contact Info) Description 09/21/2024 Scanned Document [facility] [address] [place] [address] Courtney Mayfield MD 960 [facility], [facility] [address] [place] [phone] Social History Tobacco Use Types Packs/Day Years [...] from your doctor or pharmacy? Sometimes 01/02/2024 [facility] Utilities Answer Date Recorded In the past [...] How often do you attend chur or bahai services? More than 4 times per year 07/24/2024 Do you belong to any clubs o r organizations such as judaism groups, unions, fraternal or athletic groups, or [...] Recorded Patient Health Questionnaire-2 Score 0 09/12/2024 [facility] [...] [facility] in the [facility], were you homeless or living in [...] [facility] [address] [place] [address] Jodie Matthews MD [address] [place], [place] [phone] 02/14/2025 11:00 AM EDT Office Visit Isabela Morgan [address] [place] [address] Mina Betts MD MPH [address] [place] [address] 02/17/2025 11:30 AM EDT Telemedicine [facility] [address] [place] [address] Leonila Kern, LUIS-CONFIGURATION MANAGEMENT ADMINISTRATOR [address] [facility], [facility] 130 [place] [address] 04/24/2025 2:45 PM EST Office Visit [facility] [address] [facility] [address] [place] [address] Courtney Mayfield MD [address] [facility], [facility] [address] [place] [address] 06/21/2025 10:30 AM EST Office Visit [facility] [address] [phone] Jessica Moore, TERRITORY SUPERVISOR-CONFIGURATION MANAGEMENT ADMINISTRATOR [address] [address] documented as of this encounter Visit Diagnoses Not on filedocumented in this encounter Additional Health Concerns Assessment Noted Time PHQ-9 Depression Total Score: 23 025 11:53 AM EDT A fall risk assessment has been complete d for the patient 09/12/2024 2:25 PM EDT documented as of this encounter Care Teams Inter Com Servicer Relationship Specialty Start Date End Date Raquel Rayo MD [address] [place] [address] PCP - General 09/19/10 Courtney Mayfield MD [address] [facility], [facility] [address] [place] [address] Referring Physician Allergy and Immunology 02/12/24 documented as of this encounter
--- OUTSIDE RECORDS SUMMARY | 2025-02-03 08:52 | XMS_ITS | Encounter Summary ---
Author Organization [facility] Address [address] [place] [address] Phone Care Team Providers Care Distance Education Faculty Liaison Name Role Phone Raquel Ryao MD Primary Care Provider [phone] Courtney Mayfield MD Unavailable [phone] Encounter Details Date Type Department Care Team (Late st Contact Info) Description 11/13/2023 Scanned Document [facility] [address] [facility] [address] [place] [address] Courtney Mayfield MD 960 [facility], [facility] [address] [place], [place] [phone] Social History Tobacco Use Types Packs/Day Years [...] Description 02/08/2025 11:20 AM EDT Procedure Visit [facility] [address] [facility] 170 [place] [address] Jodie Matthews MD [address] [place] [address] 02/14/2025 11:00 AM EDT Office Visit Isabela Morgan [address] [place] [address] Mina Betts MD MPH [address] [place] [address] 02/17/2025 11:30 AM EDT Telemedicine [facility] [address] [place] [address] Leonila Kern APRN-NURSE INTERN [address] [facility], [facility] [address] [place] [address] 04/24/2025 2:45 PM EST Office Visit [facility] [address] [facility] [address] [place] [address] Courtney Mayfield MD [address] [facility], [facility] [address] [place] [address] 06/21/2025 10:30 AM EST Office Visit [facility] [address] [place] [phone] Jessica Moore, CARBON BRUSH MAKER-NURSE INTERN [address] [place] [address] documented as of this encounter Visit Diagnoses Not on filedocumented in this encounter Additional Health Concerns Assessment Noted Time PHQ-9 Depression Total Score: 14 024 10:35 AM EDT A fall risk assessment has been complete d for the patient 10/08/2023 10:34 AM EDT documented as of this encounter Care Teams Distance Education Faculty Liaison Relationship Specialty Start Date End Date Raquel Rayo MD [address] [place] [address] [place] [address] PCP - General 09/19/10 Courtney Mayfield MD [address] [facility], [address] [place] [phone] Referring Physician Allergy and Immunology 02/12/24 documented as of this encounter
--- OUTSIDE RECORDS SUMMARY | 2025-02-03 08:52 | XMS_ITS | Encounter Summary ---
Author Organization [facility] Address [address] [place] [address] Phone Care Team Providers Care Forensic Document Examiner Name Role Phone Raquel Rayo MD Primary Care Provider [phone] Courtney Mayfield MD Unavailable [phone] Encounter Details Date Type Department Care Team (Late st Contact Info) Description 10/27/2023 Scanned Document [facility] [address] [facility] [address] [place] [address] Courtney Mayfield MD 960 [facility], [facility] [address] [place] [phone] Social History Tobacco Use Types Packs/Day Years [...] Description 02/08/2025 11:20 AM EDT Procedure Visit [facility] [address] [place] [address] Jodie Matthews MD [address] [place], [place] [phone] 02/14/2025 11:00 AM EDT Office Visit Isabelasahil Meyer Eddie [address] [place] [address] Mina Betts MD MPH [address] [place] [address] 02/17/2025 11:30 AM EDT Telemedicine [facility] [address] [place] [address] Leonila Kern, GEOLOGICAL TECHNICIAN-BAR GAUGER AND LUBRICATOR TENDER [address] [facility], [facility] [address] [place] [address] 04/24/2025 2:45 PM EST Office Visit [facility] [address] [facility] [address] [place] [address] Courtney Mayfield MD [address] [facility], [facility] [address] [place], [place] [phone] 06/21/2025 10:30 AM EST Office Visit [facility] [address] [place] [address] Jessica Moore, GEOLOGICAL TECHNICIAN-BAR GAUGER AND LUBRICATOR TENDER [address] [place], [place] [phone] documented as of this encounter Visit Diagnoses Not on filedocumented in this encounter Additional Health Concerns Assessment Noted Time PHQ-9 Depression Total Score: 14 024 10:35 AM EDT A fall risk assessment has been complete d for the patient 10/08/2023 10:34 AM EDT documented as of this encounter Care Teams Forensic Document Examiner Relationship Specialty Start Date End Date Raquel Rayo MD [address] [place] [address] [place] [address] PCP - General 09/19/10 Courtney Mayfield MD [address] [place] [address], [facility] [address] [place] [address] Referring Physician Allergy and Immunology 02/12/24 documented as of this encounter
--- OUTSIDE RECORDS SUMMARY | 2025-02-03 08:52 | XMS_ITS | Encounter Summary ---
Author Organization [facility] Address [address] [place] [address] Phone Care Team Providers Care Retail Marketing Executive Name Role Phone Raquel Rayo MD Primary Care Provider [phone] Courtney Mayfield MD Unavailable [phone] Encounter Details Date Type Department Care Team (Late st Contact Info) Description 08/21/2023 Scanned Document [facility] [address] [facility] [address] [place] [address] Courtney Mayfield MD 960 [facility], [facility] [address] [place], [place] [phone] Social History Tobacco Use Types Packs/Day Years [...] Description 02/08/2025 11:20 AM EDT Procedure Visit [facility] [address] [facility] 170 [place] [address] Jodie Matthews MD [address] [place] [address] 02/14/2025 11:00 AM EDT Office Visit Isabela Morgan [address] [place] [address] Mina Betts MD MPH [address] [place] [address] 02/17/2025 11:30 AM EDT Telemedicine [facility] [address] [place] [address] Leonila Kern APRN-COTTON BROKER [address] [place] [facility], [facility] 130 [place] [address] 04/24/2025 2:45 PM EST Office Visit [facility] [address] [facility] [address] [place] [address] Courtney Mayfield MD [address] [facility], [facility] [address] [place] [address] 06/21/2025 10:30 AM EST Office Visit [facility] [address] [place] [phone] Jessica Moore, TABLE SAW OPERATOR-COTTON BROKER [address] [place] [address] documented as of this encounter Visit Diagnoses Not on filedocumented in this encounter Additional Health Concerns Assessment Noted Time PHQ-9 Depression Total Score: 10 024 3:38 PM EST A fall risk assessment has been complete d for the patient 06/22/2023 3:38 PM EST documented as of this encounter Care Teams Retail Marketing Executive Relationship Specialty Start Date End Date Raquel Rayo MD [address] [place] [address] [place] [address] PCP - General 09/19/10 Courtney Mayfield MD [address] [facility], [address] [place] [phone] Referring Physician Allergy and Immunology 02/12/24 documented as of this encounter
--- OUTSIDE RECORDS SUMMARY | 2025-02-03 08:52 | XMS_ITS | Encounter Summary ---
Author Organization [facility] Address [address] [place] [address] Phone Care Team Providers Care Glass Etcher Helper Name Role Phone Raquel Rayo MD Primary Care Provider [phone] Courtney Mayfield MD Unavailable [phone] Encounter Details Date Type Department Care Team (Late st Contact Info) Description 01/08/2023 Orders Only [facility] [address] [place] [address] Conversion, Onbase Social History Tobacco Use Types [...] 02/08/2025 11:20 AM EDT Procedure Visit [facility] [address] [place] [address] Jodie Matthews MD [address] [place] [address] 02/14/2025 11:00 AM EDT Office Visit [address]a [address] [place] [address] Mina Betts MD MPH [address] [facility] 200 [place] [address] 02/17/2025 11:30 AM EDT Telemedicine [facility] [address] [facility] 130 [place] [address] Leonila Kern SPECIAL ORDER JEWELER-DIRECT CARE STAFFER 1000 [facility] 130 [place] [address] 04/24/2025 2:45 PM EST Office Visit [facility] [address] [facility] [address] [place] [address] Courtney Mayfield MD [address] [facility], [facility] [address] [place] [address] 06/21/2025 10:30 AM EST Office Visit [facility] [address] [facility] 170 [place] [address] Jessica Moore, SPECIAL ORDER JEWELER-DIRECT CARE STAFFER [address] [facility] 170 [place], [place] [phone] Scheduled Orders Name Type Priority Associated Diagnoses Orde r Schedule OUTSIDE LAB SCAN Lab Ordered: 01/08/2023 documented as of this encounter Visit Diagnoses Not on filedocumented in this encounter Additional Health Concerns Assessment Noted Time PHQ-9 Depression Total Score: 11 023 10:35 AM EDT documented as of this encounter Care Teams Glass Etcher Helper Relationship Specialty Start Date End Date Raquel Rayo MD [facility] [place] [address] [place] [address] PCP - General 09/19/10 Courtney Mayfield MD [address] [facility], [facility] [address] [place] [address] Referring Physician Allergy and Immunology 02/12/24 documented as of this encounter
--- OUTSIDE RECORDS SUMMARY | 2025-02-03 08:52 | XMS_ITS | Encounter Summary ---
Author Organization [facility] Address [address] [place] [address] Phone Care Team Providers Care Milk Of Lime Slaker Name Role Phone Raquel Rayo MD Primary Care Provider [phone] Courtney Mayfield MD Unavailable Encounter Details Date Type Department Care Team (Late st Contact Info) Description 05/30/2021 Orders Only [facility] [address] [place] [address] Conversion, Onbase Social History Tobacco Use Types [...] 11:20 AM EDT Procedure Visit [facility] [address] [place] [phone] Jodie Matthews MD [address] [place], [place] [phone] 02/14/2025 11:00 AM EDT Office Visit Isabela Morgan [address] [place] [address] Mina Betts MD MPH [address] [place] [phone] 02/17/2025 11:30 AM EDT Telemedicine [facility] [address] [facility] 130 [place] [address] Leonila Kern WASTE AND BATTING WASTE CHOPPER-BEVEL MILL OPERATOR [address] [facility], [facility] 130 [place] [address] 04/24/2025 2:45 PM EST Office Visit [facility] [address] [facility] [address] [place] [phone] Courtney [place] MD [address] [facility], [facility] [address] [place] [address] 06/21/2025 10:30 AM EST Office Visit [facility] [address] [facility] [address] [place] [address] Jessica Moore, WASTE AND BATTING WASTE CHOPPER-BEVEL MILL OPERATOR [address] [facility] [address] [place] [address] Scheduled Orders Name Type Priority Associated Diagnoses Orde r Schedule OUTSIDE LAB SCAN Lab Ordered: 05/30/2021 documented as of this encounter Visit Diagnoses Not on filedocumented in this encounter Care Teams Milk Of Lime Slaker Relationship Specialty Start Date End Date Raquel Rayo MD [address] [place] [address] [place] [address] PCP - General 09/19/10 Courtney Mayfield MD [address] [facility], [facility] [address] [place] [address] Referring Physician Allergy and Immunology 02/12/24 documented as of this encounter
--- OUTSIDE RECORDS SUMMARY | 2025-02-03 08:52 | XMS_ITS | Encounter Summary ---
Author Organization [facility] Address [address] [place] [address] Phone Care Team Providers Care Infantry Officer Name Role Phone Raquel Rayo MD Primary Care Provider [phone] Courtney Mayfield MD Unavailable [phone] Encounter Details Date Type Department Care Team (Late st Contact Info) Description 09/19/2024 Scanned Document [facility] [address] [place] [address] Courtney Mayfield MD [address] [facility], [facility] [address] [id number] Social History Tobacco Use Types Packs/Day Years [...] from your doctor or pharmacy? Sometimes 01/02/2024 [facility] Utilities Answer Date Recorded In the [...] How often do you attend chur or taoist services? More than 4 times per year 07/24/2024 Do you belong to any clubs o r organizations such as advent groups, unions, fraternal or athletic groups, or [...] Patient Health Questionnaire-2 Score 0 09/12/2024 [facility] Occupat ional [...] time in the past 12 m [facility], were you homeless or living in [...] [facility] [address] [place] [address] Jodie Matthews MD [address] [place], [place] [phone] 02/14/2025 11:00 AM EDT Office Visit Isabela Morgan [address] [place] [address] Mina Betts MD MPH [address] [place] [address] 02/17/2025 11:30 AM EDT Telemedicine [facility] [address] [place] [address] Leonila Kern, LUIS-PACK TRAIN DRIVER [address] [facility], [facility] 130 [place] [address] 04/24/2025 2:45 PM EST Office Visit [facility] [address] [facility] [address] [place] [address] Courtney Mayfield MD [address] [facility], [facility] [address] [place] [address] 06/21/2025 10:30 AM EST Office Visit [facility] [address] [phone] Jessica Moore, LEATHER POLISHER-PACK TRAIN DRIVER [address] [address] documented as of this encounter Visit Diagnoses Not on filedocumented in this encounter Additional Health Concerns Assessment Noted Time PHQ-9 Depression Total Score: 23 025 11:53 AM EDT A fall risk assessment has been complete d for the patient 09/12/2024 2:25 PM EDT documented as of this encounter Care Teams Infantry Officer Relationship Specialty Start Date End Date Raquel Rayo MD [address] [place] [address] PCP - General 09/19/10 Courtney Mayfield MD [address] [facility], [facility] [address] [place] [address] Referring Physician Allergy and Immunology 02/12/24 documented as of this encounter
--- OUTSIDE RECORDS SUMMARY | 2025-02-03 08:52 | XMS_ITS | Encounter Summary ---
Author Organization [facility] Address [address] [place] [address] Phone Care Team Providers Care Research Program Assistant Name Role Phone Raquel Rayo MD Primary Care Provider [phone] Courtney Mayfield MD Unavailable [phone] Encounter Details Date Type Department Care Team (Late st Contact Info) Description 09/19/2021 Orders Only [facility] [address] [place] [address] Conversion, Onbase Social History Tobacco Use Types [...] [facility] [address] [place] [address] Jodie Matthews MD [address] [place], [place] [phone] 02/14/2025 11:00 AM EDT Office Visit Isabela Morgan [address] [place] [address] Mina Betts MD MPH [address] [place] [address]-87 02/17/2025 11:30 AM EDT Telemedicine [facility] [address] [facility] 130 [place] [address] Leonila Kern GRINDER OPERATOR TOOL-BACK TENDER PULP DRIER [address] [facility], [facility] [address] [place] [address] 04/24/2025 2:45 PM EST Office [facility] [address] [facility] [address] [place] [address] Courtney Mayfield MD [address] [facility], [facility] [address] [place] [address] 06/21/2025 10:30 AM EST Office Visit [facility] [address] [facility] 170 [place] [address] Jessica Moore, GRINDER OPERATOR TOOL-BACK TENDER PULP DRIER [address] [facility] 170 [place] [address] Scheduled Orders Name Type Priority Associated Diagnoses Orde r Schedule OUTSIDE LAB SCAN Lab Ordered: 09/19/2021 documented as of this encounter Visit Diagnoses Not on filedocumented in this encounter Care Teams Research Program Assistant Relationship Specialty Start Date End Date Raquel Rayo MD [address] [place] [address] [place] [address] PCP - General 09/19/10 Courtney Mayfield MD [address] [facility], [facility] [address] [place] [address] Referring Physician Allergy and Immunology 02/12/24 documented as of this encounter
--- OUTSIDE RECORDS SUMMARY | 2025-02-03 08:52 | XMS_ITS | Encounter Summary ---
Author Organization [facility] Address [address] [place] [address] Phone Care Team Providers Care Slurry Control Tender Name Role Phone Raquel Rayo MD Primary Care Provider [phone] Courtney Mayfield MD Unavailable [phone] Encounter Details Date Type Department Care Team (Late st Contact Info) Description 01/06/2023 Scanned Document [facility] [address] [place] [place] [address] Conversion, Onbase Social History Tobacco Use Types [...] [facility] [address] [place] [address] Jodie Matthews MD [address] [place] [address] 02/14/2025 11:00 AM EDT Office Visit Isabela Morgan [facility] [address] [place] [address] Mina Betts MD MPH [address] [facility] 200 [place] [address] 02/17/2025 11:30 AM EDT Telemedicine [facility] [address] [facility] 130 [place] [address] Leonila Kern CHAINSTITCH PANTS OUTSEAMER-DRENCHER 1000 [facility], [facility] 130 [place] [address] 04/24/2025 2:45 PM EST Office Visit [facility] [address] [facility] [address] [place] [address] Courtney Mayfield MD [address] [facility], [facility] [address] [place] [address] 06/21/2025 10:30 AM EST Office Visit [facility] [address] [facility] 170 [place] [address] Jessica Moore, CHAINSTITCH PANTS OUTSEAMER-DRENCHER [address] [facility] 170 [place], [place] [phone] documented as of this encounter Visit Diagnoses Not on filedocumented in this encounter Additional Health Concerns Assessment Noted Time PHQ-9 Depression Total Score: 11 023 10:35 AM EDT documented as of this encounter Care Teams Slurry Control Tender Relationship Specialty Start Date End Date Raquel Rayo MD [address] [place] [address] [place] [address] PCP - General 09/19/10 Courtney Mayfield MD [address] [facility], [facility] [address] [place] [address] Referring Physician Allergy and Immunology 02/12/24 documented as of this encounter
--- OUTSIDE RECORDS SUMMARY | 2025-02-03 08:52 | XMS_ITS | Encounter Summary ---
Author Organization [facility] Address [address] [place] [address] Phone Care Team Providers Care Compounder Sterile Products Name Role Phone Raquel Rayo MD Primary Care Provider [phone] Courtney Mayfield MD Unavailable [phone] Encounter Details Date Type Department Care Team (Late st Contact Info) Description 03/15/[address] [facility] [address] [place] [address] Conversion, Onbase Social History Tobacco Use Types [...] Visit [facility] [address] [place] [address] Jodie Matthews MD [address] [place], [place] [address] 02/14/2025 11:00 AM EDT Office Visit Isabela Morgan [address] [place] [address] Mina Betts MD MPH [address] [place] [address] 02/17/2025 11:30 AM EDT Telemedicine [facility] [address] [facility] 130 [place] [address] Leonila Kern ADMINISTRATION PHYSICIAN-CONTROL OPERATOR FLOW COAT [address] [facility], [facility] 130 [place] [address] 04/24/2025 2:45 PM EST Office Visit [facility] [address] [facility] [address] [place] [address] Courtney Mayfield MD [address] [facility], [facility] [address] [place] [address] 06/21/2025 10:30 AM EST Office Visit [facility] [address] [facility] 170 [place] [address] Jessica Moore, ADMINISTRATION PHYSICIAN-CONTROL OPERATOR FLOW COAT [address] [facility] [address] [place] [address] Scheduled Orders Name Type Priority Associated Diagnoses Orde r Schedule AUDIOLOGY REPORT - ONBASE SCAN Audiology Ordered: 018 documented as of this encounter Visit Diagnoses Not on filedocumented in this encounter Care Teams Compounder Sterile Products Relationship Specialty Start Date End Date Raquel Rayo MD [address] [place] [address] PCP - General 09/19/10 Courtney Mayfield MD [address] [facility], [facility] [address] [place] [address] Referring Physician Allergy and Immunology 02/12/24 documented as of this encounter
--- OUTSIDE RECORDS SUMMARY | 2025-02-03 08:52 | XMS_ITS | Encounter Summary ---
Author Organization [facility] Address [address] [place] [address] Phone Care Team Providers Care Sizer Machine Name Role Phone Raquel Rayo MD Primary Care Provider [phone] Courtney Mayfield MD Unavailable [phone] Encounter Details Date Type Department Care Team (Late st Contact Info) Description 01/12/2018 Orders Only [facility] [address] [place] [address] Conversion, Onbase Social History Tobacco Use Types [...] Visit [facility] [address] [place] [address] Jodie Matthews MD [address] [place], [place] [address] 02/14/2025 11:00 AM EDT Office Visit Isabela Morgan [address] [place] [address] Mina Betts MD MPH [address] [place] [address] 02/17/2025 11:30 AM EDT Telemedicine [facility] [address] [facility] 130 [place] [address] Leonila Kern PILE FABRIC KNITTER-GOLF COURSE ASSISTANT [address] [facility], [facility] 130 [place] [address] 04/24/2025 2:45 PM EST Office Visit [facility] [address] [facility] [address] [place] [address] Courtney [place] MD [address] [facility], [facility] [address] [place] [address] 06/21/2025 10:30 AM EST Office Visit [facility] [address] [facility] [address] [place] [address] Jessica Moore, PILE FABRIC KNITTER-GOLF COURSE ASSISTANT [address] [facility] [address] [place] [address] Scheduled Orders Name Type Priority Associated Diagnoses Orde r Schedule OUTSIDE LAB SCAN Lab Ordered: 01/12/2018 documented as of this encounter Visit Diagnoses Not on filedocumented in this encounter Care Teams Sizer Machine Relationship Specialty Start Date End Date Raquel Rayo MD [address] [place] [address] [place] [address] PCP - General 09/19/10 Courtney Mayfield MD [address] [facility], [facility] [address] [place], [place] [address] Referring Physician Allergy and Immunology 02/12/24 documented as of this encounter
--- OUTSIDE RECORDS SUMMARY | 2025-02-03 08:52 | XMS_ITS | Encounter Summary ---
Author Organization [facility] Address [address] [place] [address] Phone Care Team Providers Care Skating Rink Manager Name Role Phone Raquel Rayo MD Primary Care Provider [phone] Courtney Mayfield MD Unavailable [phone] Encounter Details Date Type Department Care Team (Late st Contact Info) Description 08/19/2021 Orders Only [facility] [address] [place] [address] Conversion, Onbase Social History Tobacco Use Types [...] Description 02/08/2025 11:20 AM EDT Procedure Visit [facility] [address] [place] [address] Jodie Matthews MD [address] [place], [place] [address] 02/14/2025 11:00 AM EDT Office Visit Isabela Morgan [address] [place] [address] Mina Betts MD [facility] [address] [place] [address] 02/17/2025 11:30 AM EDT Telemedicine [facility] [address] [place] [address] eLonila Kern CRIMINAL DEFENSE ATTORNEY-DAIRY CLERK 1000 [facility], [facility] 130 [place] [address] 04/24/2025 2:45 PM EST Office Visit [facility] [address] [facility] [address] [place] [address] Courtney Mayfield MD [address] [facility], [facility] [address] [place] [address] 06/21/2025 10:30 AM EST Office Visit [facility] [address] [place] [address] Jessica Moore, CRIMINAL DEFENSE ATTORNEY-DAIRY CLERK [address] [place], [place] [address] Scheduled Orders Name Type Priority Associated Diagnoses Orde r Schedule OUTSIDE LAB SCAN Lab Ordered: 08/19/2021 OUTSIDE LAB SCAN Lab Ordered: 08/19/2021 documented as of this encounter Visit Diagnoses Not on filedocumented in this encounter Care Teams Skating Rink Manager Relationship Specialty Start Date End Date Raquel Rayo MD [address] [place] [address] [place] [address] PCP - General 09/19/10 Courtney Mayfield MD [address] [facility], [address] [place] [address] Referring Physician Allergy and Immunology 02/12/24 documented as of this encounter
--- OUTSIDE RECORDS SUMMARY | 2025-02-03 08:52 | XMS_ITS | Encounter Summary ---
Author Organization [facility] Address [address] [place] [address] Phone Care Team Providers Care Regional Sales Manager Name Role Phone Raquel Rayo MD Primary Care Provider [phone] Courtney Mayfield MD Unavailable [phone] Encounter Details Date Type Department Care Team (Late st Contact Info) Description 02/05/2023 Scanned Document [facility] [address] [place] [address] Scanning, Generic Provider Social History [...] Description 02/08/2025 11:20 AM EDT Procedure Visit [facility] [address] [place] [address] Jodie Matthews MD [address] [place], [place] [phone] 02/14/2025 11:00 AM EDT Office Visit [address] [place] [address] Mina Betts MD MPH [address] [facility] 200 [place] [address] 02/17/2025 11:30 AM EDT Telemedicine [facility] [address] [facility] 130 [place] [address] Leonila Kern SQUAD SERGEANT-OPHTHALMIC TECHNICIAN APPRENTICE [address] [facility], [facility] 130 [place] [address] 04/24/2025 2:45 PM EST Office Visit [facility] [address] [facility] [address] [place] [address] Courtney Mayfield MD [address] [facility], [facility] [address] [place] [address] 06/21/2025 10:30 AM EST Office Visit [facility] [address] [facility] [address] [place] [address] Jessica Moore, SQUAD SERGEANT-OPHTHALMIC TECHNICIAN APPRENTICE [address] [facility] 170 [place], [place] [phone] documented as of this encounter Visit Diagnoses Not on filedocumented in this encounter Additional Health Concerns Assessment Noted Time PHQ-9 Depression Total Score: 11 023 10:35 AM EDT documented as of this encounter Care Teams Regional Sales Manager Relationship Specialty Start Date End Date Raquel Rayo MD [address] [place] [address] [place] [address] PCP - General 09/19/10 Courtney Mayfield MD [address] [facility], [facility] [address] [place], [place] [address] Referring Physician Allergy and Immunology 02/12/24 documented as of this encounter
--- OUTSIDE RECORDS SUMMARY | 2025-02-03 08:52 | XMS_ITS | Encounter Summary ---
Author Organization [facility] Address [address] [place] [address] Phone Care Team Providers Care Product Director Name Role Phone Raquel Rayo MD Primary Care Provider [phone] Courtney Mayfield MD Unavailable Encounter Details Date Type Department Care Team (Late st Contact Info) Description 12/26/2022 Scanned Document [facility] [address] [place] [place] [address] Conversion, Onbase Social History Tobacco Use Types [...] [facility] [address] [place] [address] Jodie Matthews MD [address] [place] [address] 02/14/2025 11:00 AM EDT Office Visit Isabela Morgan [facility] [address] [place] [address] Mina Betts MD MPH 1000 [facility] 200 [place] [address] 02/17/2025 11:30 AM EDT Telemedicine [facility] [address] [facility] 130 [place] [address] Leonila Kern LANDSCAPE SPECIALIST-PLASTIC INJECTION MOLD MAKER [address] [facility], [facility] 130 [place] [address] 04/24/2025 2:45 PM EST Office Visit [facility] [address] [facility] [address] [place] [address] Courtney [place]field MD [address] [facility], [facility] [address] [place] [address] 06/21/2025 10:30 AM EST Office [facility] [address] [facility] 170 [place] [address] Jessica Moore, LANDSCAPE SPECIALIST-PLASTIC INJECTION MOLD MAKER [address] [facility] 170 [place], [place] [address] documented as of this encounter Visit Diagnoses Not on filedocumented in this encounter Additional Health Concerns Assessment Noted Time PHQ-9 Depression Total Score: 11 023 10:35 AM EDT documented as of this encounter Care Teams Product Director Relationship Specialty Start Date End Date Raquel Rayo MD [address] [place] [address] [place] [address] PCP - General 09/19/10 Courtney Mayfield MD [address] [facility], [facility] [address] [place] [address] Referring Physician Allergy and Immunology 02/12/24 documented as of this encounter
--- OUTSIDE RECORDS SUMMARY | 2025-02-03 08:52 | XMS_ITS | Encounter Summary ---
Author Organization [facility] Address [address] [place] [address] Phone Care Team Providers Care Supervisor [employer] Name Role Phone Raquel Rayo MD Primary Care Provider [phone] Courtney Mayfield MD Unavailable [phone] Encounter Details Date Type Department Care Team (Late st Contact Info) Description 06/03/2022 Orders Only [facility] [address] [place] [address] Conversion, Onbase Social History Tobacco Use Types [...] Description 02/08/2025 11:20 AM EDT Procedure Visit [facility] [address] [place] [address] Jodie Matthews MD [address] [place], [place] [address] 02/14/2025 11:00 AM EDT Office Visit Isabela Morgan [address] [place] [address] Mina Betts MD MPH [address] [place] [address] 02/17/2025 11:30 AM EDT Telemedicine [facility] [address] [facility] 130 [place] [address] Leonila Kern CLINICAL TRIALS NURSE-NUTRITION FACULTY MEMBER [address] [facility], [facility] 130 [place] [address] 04/24/2025 2:45 PM EST Office Visit [facility] [address] [facility] [address] [place] [address] Courtney Mayfield MD [address] Formerly named [facility], [facility] [address] [place] [address] 06/21/2025 10:30 AM EST Office Visit [facility] [address] [facility] [address] [place] [address] Jessica Moore, CLINICAL TRIALS NURSE-NUTRITION FACULTY MEMBER [address] [facility] [address] [place] [address] Scheduled Orders Name Type Priority Associated Diagnoses Orde r Schedule OUTSIDE LAB SCAN Lab Ordered: 06/03/2022 OUTSIDE LAB SCAN Lab Ordered: 06/03/2022 documented as of this encounter Visit Diagnoses Not on filedocumented in this encounter Care Teams Supervisor [employer] Relationship Specialty Start Date End Date Raquel Rayo MD [address] [place] [address] PCP - General 09/19/10 Courtney Mayfield MD [address] Formerly named [facility], [facility] [address] [place], [place] [phone] Referring Physician Allergy and Immunology 02/12/24 documented as of this encounter
--- OUTSIDE RECORDS SUMMARY | 2025-02-03 08:53 | XMS_ITS | Encounter Summary ---
Author Organization [facility] Address [address] [facility], [address] [place] [address] Care Team Providers Care Bale Sewer Name Role Phone Raquel Rayo MD Primary Care Provider [phone] Reason for Visit * Reason Comments Medication Refill Encounter Details Date Type Department Care Team (Late st Contact Info) Description 09/27/2019 Refill [facility] [address] [place] [address] Deats, Oni Rowan, RESEARCH ENGINEER [employer] - MINT WAFER DEPOSITOR [address] [facility] [address] [place] [address] Medication Refill Social History Tobacco Use Types [...] documented as of this encounter Care Teams Bale Sewer Relationship Specialty Start Date End Date Raquel Rayo MD PCP - General Family Medicine 11/21/19 documented as of this encounter
--- OUTSIDE RECORDS SUMMARY | 2025-02-03 08:53 | XMS_ITS | Encounter Summary ---
Author Organization [facility] Address [address] [place] [address] Phone Care Team Providers Care Dining Service Supervisor Name Role Phone Raquel Rayo MD Primary Care Provider [phone] Courtney Mayfield MD Unavailable [phone] Encounter Details Date Type Department Care Team (Late st Contact Info) Description 09/27/[address] [facility] [address] [place] [address] Courtney Mayfield MD 960 [facility], [facility] [address] [place] [phone] Social History Tobacco Use Types Packs/Day Years [...] from your doctor or pharmacy? Sometimes 01/02/2024 [facility] Utilities Answer Date Recorded In the [...] How often do you attend chur or adventist services? More than 4 times per year 07/24/2024 Do you belong to any clubs o r organizations such as holiness groups, unions, fraternal or athletic groups, or [...] Recorded Patient Health Questionnaire-2 Score 0 09/12/2024 [facility]at ional Health [...] time in the past 12 m [facility], were you homeless or living in a [...] Description 02/08/2025 11:20 AM EDT Procedure Visit [facility] [address] [place] [address] Jodie Matthews MD [address] [place], [place] [phone] 02/14/2025 11:00 AM EDT Office Visit Isabela Morgan [address] [place] [address] Mina Betts MD MPH [address] [place] [address] 02/17/2025 11:30 AM EDT Telemedicine [facility] Recovery [facility] [address] [place] [address] Leonila Kern, LUIS-LEARNING SUPPORT ASSISTANT [address] [facility], [facility] [address] [place] [address] 04/24/2025 2:45 PM EST Office Visit [facility] [address] [facility] [address] [place] [address] Courtney Mayfield MD [address] [facility], [facility] [address] [place] [address] 06/21/2025 10:30 AM EST Office Visit [facility] [address] [phone] Jessica Moore, CRAFT ARTIST-LEARNING SUPPORT ASSISTANT [address] [address] documented as of this encounter Visit Diagnoses Not on filedocumented in this encounter Additional Health Concerns Assessment Noted Time PHQ-9 Depression Total Score: 23 025 11:53 AM EDT A fall risk assessment has been complete d for the patient 09/12/2024 2:25 PM EDT documented as of this encounter Care Teams Dining Service Supervisor Relationship Specialty Start Date End Date Raquel Rayo MD [address] [place] [address] PCP - General 09/19/10 Courtney Mayfield MD [address] [facility], [facility] [address] [place] [address] Referring Physician Allergy and Immunology 02/12/24 documented as of this encounter
--- OUTSIDE RECORDS SUMMARY | 2025-02-03 08:53 | XMS_ITS | Encounter Summary ---
Author Organization [facility] Address [address] [place] [address] Phone Care Team Providers Care Pipeline Inspector Name Role Phone Raquel Rayo MD Primary Care Provider Courtney Mayfield MD Unavailable [phone] Encounter Details Date Type Department Care Team (Late st Contact Info) Description 11/29/2020 Orders Only [facility] [address] [place] [address] Conversion, Onbase Social History Tobacco Use Types [...] Description 02/08/2025 11:20 AM EDT Procedure Visit [facility] [address] [place] [phone] Jodie Matthews MD [address] [place], [place] [phone] 02/14/2025 11:00 AM EDT Office Visit Isabela Morgan [address] [place] [address] Mina Betts MD MPH [address] [place] [phone] 02/17/2025 11:30 AM EDT Telemedicine [facility] [address] [facility] [address] [place] [address] Leonila Kern LOGISTICS PLANNING ENGINEER-CASH MANAGEMENT ASSOCIATE [address] [facility], [facility] [address] [place] [address] 04/24/2025 2:45 PM EST Office Visit [facility] [address] [facility] [address] [place] [phone] Courtney Mayfield MD [address] [facility], [facility] [address] [place] [address] 06/21/2025 10:30 AM EST Office Visit [facility] [address] [facility] [address] [place] [address] Jessica Moore, LOGISTICS PLANNING ENGINEER-CASH MANAGEMENT ASSOCIATE [address] [facility] [address] [place] [address] Scheduled Orders Name Type Priority Associated Diagnoses Orde r Schedule OUTSIDE LAB SCAN Lab Ordered: 11/29/2020 documented as of this encounter Visit Diagnoses Not on filedocumented in this encounter Care Teams Pipeline Inspector Relationship Specialty Start Date End Date Raquel Rayo MD [address] [place] [address] [address] [place] [address] PCP - General 09/19/10 Courtney Mayfield MD [address] [facility], [facility] [address] [place] [address] Referring Physician Allergy and Immunology 02/12/24 documented as of this encounter
--- OUTSIDE RECORDS SUMMARY | 2025-02-03 08:53 | XMS_ITS | Encounter Summary ---
Author Organization [facility] Address [address] [place] [address] Phone Care Team Providers Care Benzene Washer Name Role Phone Raquel Rayo MD Primary Care Provider [phone] Courtney Mayfield MD Unavailable [phone] Encounter Details Date Type Department Care Team (Late st Contact Info) Description 10/04/2024 Scanned Document [facility] [address] [place] [address] Courtney Mayfield MD 960 [facility], [facility] [address] [place] [phone] Social History Tobacco Use Types Packs/Day Years [...] How often do you attend chur or zoroastrianism services? More than 4 times per year [...] Patient Health Questionnaire-2 Score 0 09/12/2024 [facility] Occup[facility] ional Health - Occupational [...] in the past 12 m [facility], were you homeless or living in a group home (including now)? No 07/24/2024 Sex and [...] Visit [facility] [address] [place] [address] Jodie Matthews MD [address] [place], [place] [phone] 02/14/2025 11:00 AM EDT Office Visit Isabela Morgan [address] [place] [address] Mina Betts MD MPH [address] [place] [address] 02/17/2025 11:30 AM EDT Telemedicine [facility] Recovery [facility] [address] [place] [address] Leonila Kern, LUIS-LAWN SPRINKLER INSTALLER [address] [facility] Recovery Clinic, [facility] [address] [place] [address] 04/24/2025 2:45 PM EST Office Visit [facility] [address] [facility] [address] [place] [address] Courtney Mayfield MD [address] [facility], [facility] [address] [place] [address] 06/21/2025 10:30 AM EST Office Visit [facility] [address] [phone] Jessica Moore, INSURANCE ADJUSTOR-LAWN SPRINKLER INSTALLER [address] [address] documented as of this encounter Visit Diagnoses Not on filedocumented in this encounter Additional Health Concerns Assessment Noted Time PHQ-9 Depression Total Score: 23 025 11:53 AM EDT A fall risk assessment has been complete d for the patient 09/12/2024 2:25 PM EDT documented as of this encounter Care Teams Benzene Washer Relationship Specialty Start Date End Date Raquel Rayo MD [address] [place] [address] PCP - General 09/19/10 Courtney Mayfield MD [address] [facility], [facility] [address] [place] [address] Referring Physician Allergy and Immunology 02/12/24 documented as of this encounter
--- OUTSIDE RECORDS SUMMARY | 2025-02-03 08:53 | XMS_ITS | Encounter Summary ---
Author Organization [facility] Address [address], [address] [place] [address] Care Team Providers Care Nuclear Equipment Design Engineer Name Role Phone Raquel Rayo MD Primary Care Provider [phone] Reason for Visit * Reason Comments Medication Refill Encounter Details Date Type Department Care Team (Late st Contact Info) Description 08/28/2019 Refill [facility] [address] [place] [address] Deats, Oni Rowan, FLUXER - CHAIR INSPECTOR [address] [facility] [address] [place] [address] Medication Refill Social History Tobacco [...] as of this encounter Care Teams Nuclear Equipment Design Engineer Relationship Specialty Start Date End Date Raquel Rayo MD PCP - General Family Medicine 11/21/19 documented as of this encounter
--- OUTSIDE RECORDS SUMMARY | 2025-02-03 08:53 | XMS_ITS | Encounter Summary ---
Author Organization [facility] Address [address] [place] [address] Phone Care Team Providers Care White Sourer Name Role Phone Raquel Rayo MD Primary Care Provider [phone] Courtney Mayfield MD Unavailable [phone] Encounter Details Date Type Department Care Team (Late st Contact Info) Description 10/10/2024 Scanned Document [facility] [address] [place] [address] Courtney Mayfield MD 960 [facility], [facility] [address] [place] [phone] Social History Tobacco Use Types Packs/Day Years [...] doctor or pharmacy? Sometimes 01/02/2024 [facility] Utilities Answer Date Recorded In the [...] How often do you attend chur or rastafarian services? More than 4 times per year 07/24/2024 Do you belong to any clubs o r organizations such as mormonism groups, unions, fraternal or athletic groups, or [...] Recorded Patient Health Questionnaire-2 Score 0 09/12/2024 [facility] of Occupat ional Health - Occupational [...] time in the past 12 m [facility], were you homeless or living [...] [facility] [address] [place] [address] Jodie Matthews MD [address] [place], [place] [phone] 02/14/2025 11:00 AM EDT Office Visit Isabela Morgan [address] [place] [address] Mina Betts MD MPH [address] [place] [address] 02/17/2025 11:30 AM EDT Telemedicine [facility] Recovery [facility] [address] [place] [address] Leonila Kern, LUIS-PHYSICIST ASTROPHYSICS [address] [facility] Recovery Clinic, [facility] [address] [place] [address] 04/24/2025 2:45 PM EST Office Visit [facility] [address] [facility] [address] [place] [address] Courtney Mayfield MD [address] [facility], [facility] [address] [place] [address] 06/21/2025 10:30 AM EST Office Visit [facility] [address] [phone] Jessica Moore, CHIP TESTER-PHYSICIST ASTROPHYSICS [address] [address] documented as of this encounter Visit Diagnoses Not on filedocumented in this encounter Additional Health Concerns Assessment Noted Time PHQ-9 Depression Total Score: 23 025 11:53 AM EDT A fall risk assessment has been complete d for the patient 09/12/2024 2:25 PM EDT documented as of this encounter Care Teams White Sourer Relationship Specialty Start Date End Date Raquel Rayo MD [address] [place] [address] PCP - General 09/19/10 Courtney Mayfield MD [address] [facility], [facility] [address] [place] [address] Referring Physician Allergy and Immunology 02/12/24 documented as of this encounter
--- OUTSIDE RECORDS SUMMARY | 2025-02-03 08:53 | XMS_ITS | Encounter Summary ---
Author Organization [facility] Address [address] [place] [address] Phone Care Team Providers Care Nuclear Radiologist Name Role Phone Raquel Rayo MD Primary Care Provider [phone] Courtney Mayfield MD Unavailable [phone] Encounter Details Date Type Department Care Team (Late st Contact Info) Description 11/05/2017 Orders Only [facility] LE[facility] [address] [place] [address] Conversion, Onbase Social History Tobacco Use Types [...] 02/08/2025 11:20 AM EDT Procedure Visit [facility] [address] [place] [phone] Jodie Matthews MD [address] [place], [place] [phone] 02/14/2025 11:00 AM EDT Office Visit Isabela Morgan [address] [place] [address] Mina Betts MD MPH [address] [place] [address] 02/17/2025 11:30 AM EDT Telemedicine [facility] [address] [facility] [address] [place] [address] Leonila Kern OFFICE PROFESSIONAL-SHANK PAPERER [address] [facility], [facility] [address] [place] [address] 04/24/2025 2:45 PM EST Office Visit [facility] [address] [facility] [address] [place] [address] Courtney Mayfield MD [address] [facility], [facility] [address] [place] [address] 06/21/2025 10:30 AM EST Office [facility] [address] [facility] [address] [place] [address] Jessica Moore, OFFICE PROFESSIONAL-SHANK PAPERER [address] [facility] [address] [place] [address] Scheduled Orders Name Type Priority Associated Diagnoses Orde r Schedule OUTSIDE LAB SCAN Lab Ordered: 11/05/2017 documented as of this encounter Visit Diagnoses Not on filedocumented in this encounter Care Teams Nuclear Radiologist Relationship Specialty Start Date End Date Raquel Rayo MD [address] [place] [address] [place] [address] PCP - General 09/19/10 Courtney Mayfield MD [address] [facility], [facility] [address] [place], [place] [phone] Referring Physician Allergy and Immunology 02/12/24 documented as of this encounter
--- OUTSIDE RECORDS SUMMARY | 2025-02-03 08:53 | XMS_ITS | Encounter Summary ---
Author Organization [facility] Address [address], [address] [place] [address] Care Team Providers Care Equal Employment Opportunity Officer Name Role Phone Raquel Rayo MD Primary Care Provider [phone] Reason for Visit * Reason Comments Medication Refill Encounter Details Date Type Department Care Team (Late st Contact Info) Description 08/02/2019 [facility] [place] [address] [place] [phone] Bertram Peters, VAMP PRESSER - PRINT PRODUCTION ASSOCIATE [address] [place] [address] Medication Refill Social History [...] documented as of this encounter Care Teams Equal Employment Opportunity Officer Relationship Specialty Start Date End Date Raquel Rayo MD PCP - General Family Medicine 11/21/19 documented as of this encounter
--- OUTSIDE RECORDS SUMMARY | 2025-02-03 08:53 | XMS_ITS | Encounter Summary ---
Author Organization [facility] Address [address] [place] [address] Phone Care Team Providers Care Granite Cutter Name Role Phone Raquel Rayo MD Primary Care Provider [phone] Courtney Mayfield MD Unavailable [phone] Encounter Details Date Type Department Care Team (Late st Contact Info) Description 10/06/2024 Lab Requisition [facility] [address] [place] [address] [place] [address] [place] [address] Social History Tobacco Use Types Packs/Day Years [...] often do you attend chur ch or evangelical services? More than 4 times per year 07/24/2024 Do you belong to any clubs o r organizations such as amish groups, unions, fraternal or athletic groups, or [...] in the past 12 m [facility], were you homeless or living in a [...] 02/08/2025 11:20 AM EDT Procedure Visit [facility] [address] [place] [address] Jodie Matthews MD [address] [place], [place] [phone] 02/14/2025 11:00 AM EDT Office Visit Isabela Morgan [address] [place] [address] Mina Betts MD MPH [address] [place] [phone] 02/17/2025 11:30 AM EDT Telemedicine [facility] [address] [place] [phone] Leonila Kern APRN-PRATIMA [address] [facility] Recovery Clinic, [email or web address] [address] [place] [address] 04/24/2025 2:45 PM EST Office Visit [facility] [address] [place] [phone] Courtney aMyfield MD [address] [facility], [address] [place] [address] 06/21/2025 10:30 AM EST Office Visit [facility] [address] [place] [phone] Jessica Moore, SPORTS INFORMATION DIRECTOR-ELECTRONICS ENGINEERING PROFESSOR [address] [facility] [[email or web address] [address] [place], [place] [phone] documented as of this encounter Procedures Procedure Name Priority Date/Time Associated Diagnosis Comments CBC Routine 10/06/2024 4:44 AM EDT COMPREHENSIVE METABOLIC PANEL Routine 10/06/2024 4:44 AM EDT documented in this encounter Results * (ABNORMAL) Comprehensive Metabolic Panel (10/06/2024 4:44 AM EDT) Glucose 71(L) 74 - 99 mg/dL LAB CHEMISTRY METHOD 10/06/2024 8:03 AM [facility] Sodium 139 136 - 145 mmol/L LAB CHEMISTRY METHOD 10/06/2024 8:03 AM [facility] Potassium 4.2 3.5 - 5.3 mmol/L LAB CHEMISTRY METHOD 10/06/2024 8:03 AM [facility] Chloride 114(H) 98 - 107 mmol/L LAB CHEMISTRY METHOD 10/06/2024 8:03 AM [facility] Bicarbonate 20(L) 21 - 32 mmol/L LAB CHEMISTRY METHOD 10/06/2024 8:03 AM [facility] Anion Gap 9(L) 10 - 20 mmol/L LAB CHEMISTRY METHOD 10/06/2024 8:03 AM [facility] Urea Nitrogen 27(H) 6 - 23 mg/dL LAB CHEMISTRY METHOD 10/06/2024 8:03 AM [facility] Creatinine 0.82 0.50 - 1.30 mg/dL LAB CHEMISTRY METHOD 10/06/2024 8:03 AM [facility] eGFR >90 >60 mL/min/1. 73m*2 LAB CHEMISTRY METHOD 10/06/2024 8:03 AM [facility] Comment: Calculations of estimated GFR are performed using the 2020 CKD-EPI Study Refit equation without the race variable for the IDMS-Traceable creatinine methods. https://jasn.asnjournals.org/content//ASN.1274008010 Calcium 7.8(L) 8.6 - 10.3 mg/dL LAB CHEMISTRY METHOD 10/06/2024 8:03 AM [facility] Albumin 3.1(L) 3.4 - 5.0 g/dL LAB CHEMISTRY METHOD 10/06/2024 8:03 AM [facility] Alkaline Phosphatase 64 33 - 136 U/L LAB CHEMISTRY METHOD 10/06/2024 8:03 AM [facility] Total Protein 4.8(L) 6.4 - 8.2 g/dL LAB CHEMISTRY METHOD 10/06/2024 8:03 AM [facility] AST 9 9 - 39 U/L LAB CHEMISTRY METHOD 10/06/2024 8:03 AM [facility] Bilirubin, Total 0.4 0.0 - 1.2 mg/dL LAB CHEMISTRY METHOD 10/06/2024 8:03 AM [facility] ALT 9(L) 10 - 52 U/L LAB CHEMISTRY METHOD 10/06/2024 8:03 AM [facility] Comment:Patients treated wit h Sulfasalazine may generate falsely decreased results for ALT. Blood Venous blood specimen / Unknown 10/06/2024 4:44 AM EDT 10/06/2024 6:31 AM EDT Jayant Hunter MD LAB BLOOD ORDERABLES Final Result [facility] [address] [place] [address] * (ABNORMAL) CBC (10/06/2024 4:44 AM EDT) WBC 6.1 4.4 - 11.3 x10*3/uL LAB HEMATOLOGY METHOD 10/06/2024 7:54 AM EDT [facility] nRBC 0.0 0.0 - 0.0 /100 WBCs LAB HEMATOLOGY METHOD 10/06/2024 7:54 AM EDT [facility] RBC 4.02(L) 4.50 - 5.90 x10*6/uL LAB HEMATOLOGY METHOD 10/06/2024 7:54 AM EDT [facility] Hemoglobin 11.7(L) 13.5 - 17.5 g/dL LAB HEMATOLOGY METHOD 10/06/2024 7:54 AM EDT [facility] Hematocrit 36.6(L) 41.0 - 52.0 % LAB HEMATOLOGY METHOD 10/06/2024 7:54 AM EDT [facility] MCV 91 80 - 100 fL LAB HEMATOLOGY METHOD 10/06/2024 7:54 AM EDT [facility] MCH 29.1 26.0 - 34.0 pg LAB HEMATOLOGY METHOD 10/06/2024 7:54 AM EDT [facility] MCHC 32.0 32.0 - 36.0 g/dL LAB HEMATOLOGY METHOD 10/06/2024 7:54 AM EDT [facility] RDW 15.6(H) 11.5 - 14.5 % LAB HEMATOLOGY METHOD 10/06/2024 7:54 AM EDT [facility] Platelets 258 150 - 450 x10*3/uL LAB HEMATOLOGY METHOD 10/06/2024 7:54 AM T [facility] Blood Venous blood specimen / Unknown 10/06/2024 4:44 AM EDT 10/06/2024 6:31 AM EDT us Jayant Hunter MD LAB BLOOD ORDERABLES Final Result [facility] [address] [place] [address] documented in this encounter Visit Diagnoses Not on filedocumented in this encounter Additional Health Concerns Assessment Noted Time PHQ-9 Depression Total Score: 23 025 11:53 AM EDT A fall risk assessment has been complete d for the patient 09/12/2024 2:25 PM EDT documented as of this encounter Care Teams Granite Cutter Relationship Specialty Start Date End Date Raquel Rayo MD [address] [place] [address] [place] [address] PCP - General 09/19/10 Courtney [place]field MD 960 [facility], [facility] [[email or web address] [address] [place], [place] [phone] Referring Physician Allergy and Immunology 02/12/24 documented as of this encounter
--- OUTSIDE RECORDS SUMMARY | 2025-02-03 08:53 | XMS_ITS | Clinical Summary ---
Author Organization [facility] Address [address] [place] [address] Phone Care Team Providers Care Automotive Design Drafter Name Role Phone Raquel Rayo MD Primary Care Provider [phone] Courtney Mayfield MD Unavailable Allergies Active Allergy Reactions Criticality Noted Date Comments Aspartame Headache 05/11/2024 Avocado Respiratory depression,Shortness of breath,Wheezing High 02/25/1980 Baclofen Unknown,Myalgia 01/17/2017 Muscle weakness Weakness, dizziness Other reaction(s): Other (See Comments) Muscle weakness Weakness, dizziness Candesartan Other 09/04/2023 Cefdinir Other 09/04/2023 Rash; early in the course. Chocolate Flavor Headache 06/02/2023 Ciprofloxacin Swelling,Rash Low 01/17/2017 Rash, tongue swelling Concord Headache 01/02/2023 Diazepam Other,Unknown,Shortn ess of breath [...] childhood age 5. Early in the course Oregon Oil Unknown 01/02/2023 Propranolol Rash,Syncope Low 10/27/2018 [...] (40 mg) by mouth once daily. Active budesonide-glyc opyr-formoterol (Breztri Aerosphere) 160-9-4.8 mcg/actuation HFA aerosol inhalerIndicati ons:Asthma, severe persistent, poorly-controll ed, with acute exacerbation (Multi) Inhale 2 puffs 2 times a day. 10.7 g 11 06/25/19 24 Active albuterol 90 mcg/actuation inhaler every 4 hours. Activ e levalbuterol (Xopenex) 45 mcg/actuation inhalerIndicati ons:Asthma with chronic obstructive pulmonary disease (COPD) (Multi) Inhale 1-2 puffs every 6 hours if needed for wheezing. 45 g 02/16/20 24 Active SUMAtriptan (Imitrex) 100 mg tabletIndicatio ns:Chronic migraine without aura without status migrainosus, not intractable Take 1 tablet (100 mg) by mouth 1 time if needed for migraine for up to 108 doses. No more than 2 triptan medications in 24 hours. 27 tablet 3 04/07/20 24 Active azithromycin (Zithromax) 500 mg tabletIndicatio ns:Asthma with chronic obstructive pulmonary disease (COPD) (Multi) Take 1 pill Thursday, Thursday and Thursday 12 tablet 5 09/15/19 25 Active tezepelumab-ekk o (Tezspire) SubQ Pen InjectorIndicat ions:Asthma with chronic obstructive pulmonary disease (COPD) (Multi) Inject 1 pen (210 mg) under the skin every 28 (twenty-eight) days. 1.91 mL 5 5 5:20 PM EDT 09/23/19 25 2024 Active meclizine (Antivert) 12.5 mg tabletIndicatio ns:Dizziness TAKE 1 TABLET BY MOUTH IF NEEDED FOR DIZZINESS 30 tablet 3 10/11/19 25 Active aspirin 81 mg EC tablet Take 2 tablets (162 mg) by mouth early in the morning.. 10/06/19 25 Active magnesium oxide (Mag-Ox) 400 mg (241.3 mg elemental) tablet Take 1 tablet by mouth 3 times a day. 10/06/19 25 Active carvedilol (Coreg) 25 mg tablet 2 times a day. 11/06/19 25 Active topiramate (Topamax) 100 mg tabletIndicatio ns:Chronic migraine without aura without status migrainosus, not intractable Take 1 tablet (100 mg) by mouth 2 times a day. (Take 100 mg with 50 mg dose at bedtime). 180 tablet 11/17/19 25 2024 Active topiramate (Topamax) 50 mg tabletIndicatio ns:Chronic migraine without aura without status migrainosus, not intractable Take 1 tablet (50 mg) by mouth once daily at bedtime. (Take 50mg with 100 mg dose at bedtime). 90 tablet 11/17/19 25 2024 Active omeprazole (PriLOSEC) [address] capsuleIndicati ons:Gastro-esop hageal reflux disease without esophagitis TAKE 1 CAPSULE BY MOUTH EVERY 12 HOURS 180 capsule 3 11/24/19 Active amitriptyline (Elavil) 100 mg tabletIndicatio ns:Chronic migraine without aura without status migrainosus, not intractable TAKE 1 TABLET BY MOUTH EVERYDAY AT BEDTIME 90 tablet 1 12/06/19 25 Active galcanezumab (Emgality Pen) 120 mg/mL auto-injectorIn dications:Chron ic migraine without aura, intractable, with status migrainosus Inject 120 mg (1 pen) under the skin every 28 (twenty-eight) days. 1 each 5 5:20 PM EDT 12/17/19 Active losartan (Cozaar) 25 mg tablet Take 1 tablet (25 mg) by mouth once daily. Active HYDROcodone-ronni taminophen (Ericson) 5-325 mg tablet Take 1 tablet by mouth every 8 hours if needed for pain. 11/23/19 Active SUMAtriptan (Imitrex) 6 mg/0.5 mL injectionIndica tions:Chronic migraine without aura without status migrainosus, not intractable Inject 0.5 mL (6 mg) under the skin if needed for migraine (Take at the onset of migraine pain. If ineffective, may repeat dose in 1 hour. Limit 12 mg (2 injections) per day). No more than 2 triptan medications in 24 hours. 3 mL 11 5 4:11 PM EDT 01/17/202025 Active venlafaxine XR (Effexor-XR) 150 mg 24 hr capsuleIndicati ons:Chronic migraine without aura without status migrainosus, not intractable Take 1 capsule (150 mg) by mouth once daily. Do not crush or chew. 90 capsule 1 01/21/20 25 Active celecoxib (CeleBREX) 200 mg capsuleIndicati ons:Chronic migraine without aura without status migrainosus, not intractable TAKE 2 CAPSULES BY MOUTH TWICE A DAY 360 capsule 1 01/28/20 25 Active SUMAtriptan (Imitrex) 6 mg/0.5 mL injectionIndica tions:Chronic migraine without aura without status migrainosus, not intractable Inject 0.5 mL (6 mg) under the skin if needed for migraine for up to 18 doses. No more than 2 triptan medications in 24 hours. 3 mL 3 04/07/20 24 2024 Discontinued(R eorder) celecoxib (CeleBREX) 200 mg capsuleIndicati ons:Chronic migraine without aura without status migrainosus, not intractable TAKE 2 CAPSULES BY MOUTH TWICE A DAY 360 capsule 1 08/11/19 25 2024 Discontinued venlafaxine XR (Effexor-XR) 150 mg 24 hr capsuleIndicati ons:Chronic migraine without aura without status migrainosus, not intractable Take 1 capsule (150 mg) by mouth once daily. Do not crush or chew. 90 capsule 11/17/19 25 2024 Discontinued(R eorder) predniSONE (Deltasone) 20 mg tabletIndicatio ns:Chronic nasal congestion Take 1 tablet (20 mg) by mouth 2 times a day for 5 days. 10 tablet 01/06/20 25 2024 Active Problems Problem Noted Date Diagnosed Date [...] kidney injury) 10/08/2023 Amnesia 10/08/2023 Anxiety 10/08/2023 Assessment & Plan (12/19/2024 12:49 PM EDT): Asterixis 10/08/2023 BPH with urinary obstruction 10/08/2023 [...] hypogonadism 10/08/2023 Migraines 10/08/2023 Assessment & Plan (12/19/2024 12:21 PM EDT): Orders: ketorolac (Toradol) 10 mg tablet; Take 1 tablet (10 mg) by mouth every 6 hours for 5 days. ketorolac (Toradol) injection 60 mg Follow Up In Neurology; Future Assessment & Plan (09/14/2024 10:20 AM EDT): [...] of knee 024 Post concussion syndrome 10/08/2023 Assessment & Plan (12/19/2024 12:49 PM EDT): Fatigue 04/08/2023 Overview (04/12/2023): Etiology unclear. Multifactorial [...] 2-3 weeks. Post-acute sequelae of COVID-19 (PASC) Assessment & Plan (08/17/2024 11:21 AM EDT): 08/2024: brain fog, fatigue, poor sleep, shortness of breath, voice changes, anxiety and depression, musculoskeletal pain, deconditioning, taste changes -CBT-i [employer] smartphone osorio by the [place] -continue close follow up with your specialists and their recommendations -consider virtual Occupational Therapy for Long COVID related fatigue and brain fog -consider restarting Physical Therapy 02/2023: brain fog, fatigue, poor sleep, shortness of breath, voice changes, anxiety and depression, musculoskeletal pain, deconditioning, taste changes -re-ordered PT, OT, and LEAD [facility]ATER for deconditioning and vocal cord dysfunction. Printed [...] with Dr. Good -follow-up on referral to [facility]ATER to address vocal cord dysfunction noted by ENT -referral to Physical Therapy and Occupational Therapy specifically for Long- COVID related symptoms including brain fog, fatigue, weakness management. 08/2022: Cognitive and memory changes, fatigue, insomnia, shortness of breath, cough, anxiety, depression, musculoskeletal pain, weakness -proceed with aquatherapy at [facility] as ordered by your orthopedic surgeon, after [...] PCP's referral to Psychology for Therapy at [facility], please let me know if you would [...] deconditioning, taste changes -re-ordered PT, OT, and LEAD COATER for deconditioning and vocal cord dysfunction. Printed [...] with Dr. Good -follow-up on referral to [facility] to address vocal cord dysfunction noted by ENT -referral to Physical Therapy and Occupational Therapy specifically for Long- COVID related symptoms including brain fog, fatigue, weakness management. 08/2022: Cognitive and memory changes, fatigue, insomnia, shortness of breath, cough, anxiety, depression, musculoskeletal pain, weakness -proceed with aquatherapy at [facility] as ordered by your orthopedic surgeon, after [...] PCP's referral to Psychology for Therapy at [facility], please let me know if you would [...] vaccine Abnormal CT of the chest 01/02/2023 Assessment & Plan (12/25/2024 11:08 AM EDT): I will reach out to Dr. Matthews to see if she would like to have his non migraine neurological issues managed by another neurologist. If so, I will ask her for a referral. 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 He is doing well but is having some issues with access. Assessment & Plan (12/19/2024 3:57 PM EDT): Last infusion was 59-25 due to co pay. He restarted them 11-11-24 He will continue IV Gamunex-C infusions 40 g monthly. Have blood work to check CMP and IgG level with next infusion. I recommended he have his flu and RSV vaccines. Assessment & Plan (09/14/2024 3:50 PM EDT): Currently on Gamunex-C at [facility]. He is doing well but is having [...] standpoint. He will continue his Gamunex at [facility] monthly. His last IgG level was adequate Assessment & Plan (02/17/2024 4:29 PM EDT): Last IgG level was good. Decreased in infections with immunoglobulin infusions. Assessment & Plan (12/06/2023 8:21 PM EDT): Continue Gamunex-C at [facility]. He recently had a flare up and it was most likely secondary to illness. He will continue infusions at [facility] Assessment & Plan (04/12/2023 6:42 PM EST): [...] has applied for bill forgiveness through both [facility] and [facility]. He is not having any adverse side [...] 08/13/2022 Allergic rhinitis 07/01/2022 Decreased cortisol level ([facility]) 05/19/2022 Fall 03/31/2022 Pernicious anemia 10/11/2021 Dyslipidemia 10/31/2019 Mixed action and resting tremor 09/15/2019 Cerebrovascular disease 08/13/2019 Chronic migraine without aur a without status migrainosus, not intractable 08/13/2019 Overview (12/07/2023): Controlled substances prescribed by other providers. Headache timeline for Brandon Bagley, 63 y.o. 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 Other associated symptoms include: abdominal pain, appetite decrease, dizziness, fatigue, irritability, nasal congestion, nausea, neck stiffness, photophobia, rhinorrhea, and sneezing. Also suffering Covid long-haul symptoms that he reports similar to his migraine symptoms. CURRENT TREATMENTS: Botox every 90 days Aimovig monthly Elavil FAILED TREATMENTS/ REASON: Rizatriptan has not been taking the edge off anymore (patient reports that he stopped taking 11/2023) Nurtec- 2019 (stopped in 2020 due to ineffectiveness). [...] samanta pulmonary disease (COPD) (Multi) 01/18/2019 Overview (12/25/2024): Severe persistent. On Tezspire. Sees Dr. Betts Last Assessment & Plan: Condition: stable Reviewed trigger avoidance and reviewed proper use of inhalers and rescue medications. Reviewed concerning signs/symptoms and ER precautions. Follow up in: three months Assessment & Plan (12/25/2024 11:05 AM EDT): He will continue azithromycin and Tezspire. Continue F/U with Dr. Betts. Assessment & Plan (06/14/2024 5:46 PM EST): [...] up in: three months Assessment & Plan (12/19/2024 12:21 PM EDT): Orders: Follow Up In Neurology; Future Hypomagnesemia 05/25/2018 Injury of kidney 04/26/2018 Enlarged lymph nodes 11/27/2017 Tachycardia 11/03/2017 Deep venous thrombosis (DVT) of peroneal vein (M ulti) 11/07/2016 Secondary diabetes mellitus (Multi) 07/26/2016 Hyperglycemia 07/25/2016 Simple obesity 07/18/2016 Thyrotoxicosis with or without goiter 07/18/2016 Chest pain on breathing 12/19/2015 Cough 06/09/2014 Drusen of macula 02/15/2014 Resolved Problems Problem Noted [...] due to methicillin susceptible Staphylococcus aureus (MSSA) (Multi) 04/01/2019 04/08/2023 Upper respiratory tract infe ction due to influenza 06/11/2015 09/13/2024 Encounters Date Type Department Care Team Description 02/01/2025 Travel 01/25/2025 Refill [facility] [address] [place] [address] Jodie Matthews MD Chronic migraine without aura without status migrainosus, not intractable 01/24/2025 Abstract [facility] [address] [place] [address] Jodie Matthews MD 01/23/2025 8:06 AM EDT - 01/23/2025 11:59 PM EDT Hospital Encounter [facility] [address] [place] [address] ILD (interstitial lung disease) (Multi) Discharge Disposition: Home 01/23/2025 Results Follow-Up [facility] [address] [place] [address] Mina Betts MD MPH Complete Pulmonary Function Test Pre/Post Bronchodilator (Spirometry Pre/Post/DLCO/Lung Volumes) 01/23/2025 Specialty Pharmacy Specialty [facility] [place] [address] Bonnie Inman 01/23/2025 Travel 01/20/2025 Refill [facility] [address] [place] [address] Lauren Galeas RN Chronic migraine without aura without status migrainosus, not intractable 01/18/2025 Specialty Pharmacy Specialty Pharmacy [facility] [place] [phone] Jodie Awad Refill Coordination Outreach (28 day recurrence) - galcanezumab-gnlm (Emgality Pen) for Migraine Core, Refill Coordination Outreach (28 day recurrence) - tezepelumab-ekgretchen (Tezspire) for Pulmonology Core 01/17/2025 Specialty Pharmacy Specialty Pharmacy [facility] [place] [phone] Jackeline Pham Refill Coordination Outreach (30 day recurrence) - sumatriptan succinate (Imitrex) for Migraine Non-Core, Refill Coordination Outreach (28 day recurrence) - galcanezumab-gnlm (Emgality Pen) for Migraine Core, Refill Coordination Outreach (28 day recurrence) - tezepelumab-ekko (Tezspire) for Pulmonology Core 01/16/2025 Specialty Pharmacy [facility] [address] [place] [phone] Bharti Bergman, PharmD Pharmacist Reassessment for Pulmonology Core 01/11/2025 Orders Only [facility] [address] [place] [address] Jodie Matthews MD Cerebrovascular disease (Primary Dx) 01/09/2025 Orders Only [facility] [address] [place] [address] Jessica Moore, ELDERLY CAREGIVER-INFORMATION TECHNOLOGY DATA ANALYST Chronic migraine without aura without status migrainosus, not intractable 01/09/2025 Scanned Document [facility] [address] [place] [address] Courtney Mayfield MD 01/05/2025 Orders Only [facility] [address] [place] [phone] Courtney Mayfield MD Chronic nasal congestion (Primary Dx) 01/04/2025 Scanned Document [facility] [address] [place] [address] Courtney Mayfield MD 01/04/2025 Telephone [facility] [address] [place] [address] Jessica Moore, ELDERLY CAREGIVER-INFORMATION TECHNOLOGY DATA ANALYST Medication Question 01/03/2025 Telephone [facility] [address] [place] [address] Christine Araujo MA 12/26/2024 Telephone [facility] [address] [place] [address] Lauren Galeas RN 12/19/2024 2:45 PM EDT Office Visit [facility] [address] [facility] [address] [place] [phone] Courtney Mayfield MD Anti-pneumococcal polysaccharide antibody deficiency ([facility]) (Primary Dx); Asthma with chronic obstructive pulmonary disease (COPD) (Multi); Abnormal CT of the chest Discharge Disposition: Home 12/19/2024 11:20 AM EDT Office Visit [facility] [address] [place] [address] Jessica Moore APRN-INFORMATION TECHNOLOGY DATA ANALYST Intractable chronic migraine without aura and with status migrainosus (Primary Dx); Neuropathy; Post concussion syndrome; Anxiety Discharge Disposition: Home 12/19/2024 Travel 12/16/2024 Specialty Pharmacy [facility] [address] [place] [address] Wei Alcaraz Refill Coordination Outreach (28 day recurrence) - galcanezumab-gnlm (Emgality Pen) for Migraine Core, Refill Coordination Outreach (28 day recurrence) - tezepelumab-ekko (Tezspire) for Pulmonology Core 12/16/2024 Refill [facility] [address] [place] [address] Jessica Moore, ELDERLY CAREGIVER-INFORMATION TECHNOLOGY DATA ANALYST Chronic migraine without aura, intractable, with status migrainosus 12/07/2024 Specialty Pharmacy [facility] [address] [place] [address] Anika Gonzales 12/04/2024 Refill [facility] [address] [place] [address] Jodie Matthews MD Chronic migraine without aura without status migrainosus, not intractable 11/30/2024 Telephone Isabela R[facility] [address] [place] [address] China Onofre MA Error (VOID this visit) 11/29/2024 Specialty Pharmacy [facility] [address] [place] [phone] Melissa Espitia, PharmD Pharmacist Reassessment - galcanezumab-gnlm (Emgality Pen) for Migraine Core 11/29/2024 Specialty Pharmacy Special[facility]acy [address] [place] [phone] Natividad Bush Refill Coordination Outreach (28 day recurrence) - galcanezumab-gnlm (Emgality Pen) for Migraine Core, Refill Coordination Outreach (28 day recurrence) - tezepelumab-ekko (Tezspire) for Pulmonology Core 11/23/2024 Refill [facility] [address] [facility] [address] [place] [address] Courtney Mayfield MD Gastro-esophageal reflux disease without esophagitis 11/18/2024 Specialty Pharmacy [facility] [address] [place] [phone] Annemarie Whelan Refill Coordination Outreach (30 day recurrence) - sumatriptan succinate (Imitrex) for Migraine Non-Core 11/16/2024 Telephone [facility] [address] [place] [address] Lauren Galeas, [facility] Follow-up 11/15/2024 Specialty Pharmacy [facility] [address] [place] [phone] Natividad Bush Refill Coordination Outreach (28 day recurrence) - galcanezumab-gnlm (Emgality Pen) for Migraine Core, Refill Coordination Outreach (28 day recurrence) - tezepelumab-ekko (Tezspire) for Pulmonology Core 11/08/2024 Refill [facility] [address] [place] [address] Jessica Moore, ELDERLY CAREGIVER-INFORMATION TECHNOLOGY DATA ANALYST Chronic migraine without aura without status migrainosus, not intractable 11/07/2024 11:30 AM EDT Procedure Visit [facility] [address] [place] [address] oJdie Matthews MD Intractable chronic migraine without aura and with status migrainosus 11/07/2024 Travel from Last 3 Months Immunizations Immunization Administration [...] Stroke Father's Sister 1 Carolina s. Mary Alzheimer's disease Father's Sister 2 Carolina s. Hudgin s Stroke Father's Sister 2 Carolina s. Mary Arthritis Mother Yanet Savedge Hypertension Mother Yanet Savedge Macular degeneration Mother Yanet Savedge Stroke Mother Yanet Savedge arteriosclerotic cardio disease Mother Yanet Savedge Alzheimer's disease Other 1 grandmother Diabetes Other 2 aunt Alzheimer's disease Other 3 Bethany Laureano Depression Other 3 Bethany Laureano Migraines Other 3 Bethany Laureano Dementia Paternal Grandmother Melissa Longoria Savedge Depression Paternal Grandmother Melissa Swati Savedge Stroke Paternal Grandmother Melissa Longoria Savedge Relation Name Status Comments Brother Father Georgi Savedge Alive Father's Sister 1 Carolina s. Mary Alive Father's Sister 2 Carolina s. Mary Father's Sister 3 Carolina s. Mary Alive Mother Yanet Bagley Alive Other 1 grandmother Other 2 aunt Other 3 Bethany Laureano Paternal Grandfather Georgi Ignacio Alive Paternal Grandmother Melissa Bagley Social History Tobacco Use Types Packs/Day Years [...] often do you attend chur ch or hindu services? More than 4 times per year 07/24/2024 Do you belong to any clubs o r organizations such as sikhism groups, unions, fraternal or athletic groups, or [...] time in the past 12 m [place], were you homeless or living in a jail (including now)? No 07/24/2024 Humiliation, Afraid, Rape, [...] and Family Not on file 01/25/2025 Attends Holiness Services Not on file 01/25 Active Member [...] care, and heating? Not very hard 01/25/2025 [facility] [place] [facility] - Occupational Stress [...] Sign Reading Time Taken Comments Blood Pressure 144/82 12/19/2024 2:53 PM EDT Pulse 88 12/19/2024 2:53 PM EDT Temperature 35.9 C (96.6 F) 07/25/2024 11:20 AM EDT Respiratory Rate 17 12/19/2024 11:40 AM EDT Oxygen Saturation 96% 12/19/2024 2:53 PM EDT Inhaled Oxygen Concentration - - Weight 81.2 kg (179 lb) 12/19/2024 11:40 AM EDT Height 175.3 cm (5' 9 ) 12/19/2024 11:40 AM EDT Body Mass Index 26.43 12/19/2024 11:40 AM EDT Plan of Treatment Upcoming Encounters Date Type Department Care Team (Late st Contact Info) Description 02/08/2025 11:20 AM EDT Procedure Visit [facility] [address] [place] [address] Jodie Matthews MD [address] [place], [place] [phone] 02/14/2025 11:00 AM EDT Office Visit Isabela Morgan [address] [place] [address] Mina Betts MD [facility] [address] [place] [address] 02/17/2025 11:30 AM EDT Telemedicine [facility] Recovery [facility] [address] [place] [address] Leonila Kern, ELDERLY CAREGIVER-INFORMATION TECHNOLOGY DATA ANALYST [address] [facility], [facility] [address] [place] [address] 04/24/2025 2:45 PM EST Office Visit [facility] [address] [facility] [address] [place] [address] Courtney Mayfield MD [address] [facility], [facility] [address] [place] [address] 06/21/2025 10:30 AM EST Office Visit [facility] [address] [place] [phone] Jessica Moore, ELDERLY CAREGIVER-INFORMATION TECHNOLOGY DATA ANALYST [address] [place], [place] [phone] Health Maintenance Due Date Last Done Comments CT Colonography 1961 Colonoscopy 1961 Colorectal Cancer Screening 1961 Diabetes: Hemoglobin A1C 1961 Diabetes: Urine Protein Screening 1961 FIT-DNA (Cologuard) 1961 FIT 1961 HIV Screening 1961 Lipid Panel 1961 Medicare Annual Wellness Visit (AWV) 1961 Sigmoidoscopy 1961 MMR Vaccines (1 of 1 - Standard series) 1962 Hepatitis C Screening 1979 PSA Prostate Cancer Screening 2011 Diabetes: Retinopathy Screening 06/09/2019 06/09/2017, 06/09/2017, 06/09/2017, Additional history exists Zoster Vaccines (2 of 2) 04/09/2020 02/13/2020 RSV High Risk: (Elderly (60+) or Population) (1 - Risk 60-74 years 1-dose series) 2021 COVID-19 Vaccine (2 - Pfizer risk series) 08/24/2021 08/03/2021 Pneumococcal Vaccine (3 of 3 - PCV) 12/10/2021 12/10/2020, 05/04/2017 Influenza Vaccine (#1) 2025 , 04/14/2022, 04/14/2022, Additional history exists DTaP/Tdap/Td Vaccines (2 - Td or Tdap) 04/05/2032 04/05/2022 Irritable Bowel Syndrome Discontinued 05/12/2022 HIB Vaccines Aged Out No longer eligi [...] AM EDT ILD (interstitial lung disease) (Multi) HEAD/FACE/JAW BOTULINUM INJECTION Routine 11/07/2024 5:46 PM EDT Intractable chronic migraine without aura and with status migrainosus EGD Routine 05/12/2022 8:28 AM EST from Last 3 Months or Most Recently Relevant to Health Maintenance Results * Pulmonary Stress Test (6 Min. Walk) (01/23/2025 9:35 AM EDT) 01/23/2025 9:29 AM EDT 01/23/2025 9:29 AM EDT us Mina Betts MD MPH PFT ORDERABLES Final R esult MGC ASCENT * Complete Pulmonary Function Test Pre/Post Bronchodilator (Spirometry Pre/Post/DLCO/Lung Volumes) (01/23/2025 9:35 AM EDT) [facility] FVC Predicted 4.07 [facility] ASCENT FEV1 - Predicted 3.14 [facility] ASCENT FVC - PRE 3.20 [facility] ASCENT FEV1 - Pre 2.64 [facility] ASCENT FVC - Post 3.41 M[facility] ASCENT FEV1 - Post 2.88 M[facility] ASCENT 01/23/2025 8:22 AM EDT 01/23/2025 8:22 AM EDT us Mina Betts MD MPH PFT ORDERABLES Final R esult MGC ASCENT * HEAD/FACE/JAW BOTULINUM INJECTION (11/07/2024 5:46 PM EDT) Narrative Jodie Matthews MD - 11/07/2024 5:46 PM EDT Jodie Matthews MD 11/07/2024 5:47 PM Head/Face/Jaw Botulinum Injection Date/Time: 11/07/2024 5:46 PM Performed by: Jodie Matthews MD Authorized [...] of : 1960 Admit Type: Outpatient Site: [facility] Ethnicity: Not or Race: White Attending MD: Park Byrd MD, [id number] Procedure: Upper GI endoscopy Indications: Iron deficiency anemia, Dysphagia Patient Profile: This is a 62 year old male. Refer to note in patient chart for documentation of history and physical. Providers: Park Byrd MD (Doctor), Barbara Michelle RN (Nurse), Anson Fernandez, Objective C Developer Referring: Melissa Wilson Medicines: Monitored Anesthesia Care Complications: No immediate [...] verified by the physician, the nurse, the housefellow and the aerospace technician in the procedure room. Mental Status [...] pathology results. Procedure Code(s): --- Professional --- 47761, Esophagogastroduodenoscopy, flexible, transoral; with biopsy, single or multiple Diagnosis Code(s): --- Professional --- K22.89, Other specified disease of esophagus K31.89, Other diseases of stomach and duodenum D50.9, Iron deficiency anemia, unspecified R13.10, Dysphagia, unspecified CPT copyright 2021 [employer]. All rights reserved. The codes documented in this report are preliminary and upon strap folding machine operator review may be revised to meet current [...] of : 1960 Admit Type: Outpatient Site: [facility] Ethnicity: Not or Race: White Attending MD: Park Byrd MD, [id number] Procedure: Upper GI endoscopy Indications: Iron deficiency anemia, Dysphagia Patient Profile: This is a 62 year old male. Refer to note inpatient chart for documentation of history and physical. Providers: Park Byrd MD (Doctor), Barbara Michelle RN(Nurse), Anson Fernandez, Objective C Developer Referring: Melissa Wilson Medicines: Monitored Anesthesia Care Complications: No immediate [...] the physician, the nurse, theanesthetist and the aerospace technician in the procedure room. Mental Status [...] pathology results. Procedure Code(s): --- Professional --- 52795, Esophagogastroduodenoscopy, flexible, transoral; with biopsy, single or multiple Diagnosis Code(s): --- Professional --- K22.89, Other specified disease of esophagus K31.89, Other diseases of stomach and duodenum D50.9, Iron deficiency anemia, unspecified R13.10, Dysphagia, unspecified CPT copyright 2021 [employer]. All rights reserved. The codes documented in this report are preliminary and upon strap folding machine operator reviewmay be revised to meet current compliance requirements. Attending Participation: I personally performed the entire procedure. MD Park Elias MD 05/12/2022 8:44:53 AM This report has been signed electronically. Number of Addenda: 0 Note Initiated On: 05/12/2022 8:28 AM Total Procedure Duration Time 0 hours 6 minutes 17 seconds Melissa Wilson ELDERLY CAREGIVER-INFORMATION TECHNOLOGY DATA ANALYST ENDOSCOPY PROCEDURE ORD ERABLES Edited Result - Final from Last 3 Months or Most Recently Relevant to Health Maintenance Insurance [employer] Care Teams Automotive Design Drafter Relationship Specialty Start Date End Date Raquel Rayo MD [address] [place] [address] [address] [place] [address] PCP - General 09/19/10 Courtney Mayfield MD [address] [facility], [address] [place] [phone] Referring Physician Allergy and Immunology 02/12/24
--- OUTSIDE RECORDS SUMMARY | 2025-02-03 08:53 | XMS_ITS | Encounter Summary ---
Author Organization [facility] Address [address], [address] [place] [address] Care Team Providers Care Taxi Driver Name Role Phone Raquel Rayo MD Primary Care Provider [phone] Reason for Visit * Reason Comments Medication Refill Encounter Details Date Type Department Care Team (Late st Contact Info) Description 08/26/2019 [facility]ill [facility] [address] [place] [address] Deats, Oni Rowan, PARKING INSPECTOR - DATA INTEGRATION ANALYST [address] [facility] [address] [place] [address] Medication Refill Social History Tobacco [...] documented as of this encounter Care Teams Taxi Driver Relationship Specialty Start Date End Date Raquel Rayo MD PCP - General Family Medicine 11/21/19 documented as of this encounter
--- OUTSIDE RECORDS SUMMARY | 2025-02-03 08:53 | XMS_ITS | Encounter Summary ---
Author Organization [facility] Address [address], [address] [place] [address] Care Team Providers Care Touch Up Worker Name Role Phone Raquel Rayo MD Primary Care Provider [phone] Reason for Visit * Reason Comments Medication Refill Encounter Details Date Type Department Care Team (Late st Contact Info) Description 04/13/2019 Refill [facility] Neurology Specialist [address] [place] [address] Liliana Madrigal, BLIND TEACHER [facility] [address] [place] [address] Medication Refill Social History Tobacco [...] documented as of this encounter Care Teams Touch Up Worker Relationship Specialty Start Date End Date Raquel Rayo MD PCP - General Family Medicine 11/21/19 documented as of this encounter
--- OUTSIDE RECORDS SUMMARY | 2025-02-03 08:54 | XMS_ITS | Encounter Summary ---
Author Organization [facility] Address [address], [address] [place] [address] Care Team Providers Care Scullion Chief Name Role Phone Raquel Rayo MD Primary Care Provider Reason for Visit * Reason Comments Medication Refill Encounter Details Date Type Department Care Team (Late st Contact Info) Description 05/10/2019 Refill [facility] [place] [address] [place] [address] Deats, Oni Rowan, TOOTH CUTTER PINION - SENIOR SITE MANAGER [address] [place] [address] Medication Refill Social History Tobacco [...] documented as of this encounter Care Teams Scullion Chief Relationship Specialty Start Date End Date Raquel Rayo MD PCP - General Family Medicine 11/21/19 documented as of this encounter
--- OUTSIDE RECORDS SUMMARY | 2025-02-03 08:54 | XMS_ITS | Encounter Summary ---
Author Organization [facility] Address [address] [place] [address] Phone Care Team Providers Care Fish And Wildlife Warden Name Role Phone Raquel Rayo MD Primary Care Provider [phone] Courtney Mayfield MD Unavailable [phone] Encounter Details Date Type Department Care Team (Late st Contact Info) Description 03/18/2024 Scanned Document [facility] [address] [place] [address] Courtney Mayfield MD [address] [facility] [address] [phone] Social History Tobacco Use Types Packs/Day Years [...] your doctor or pharmacy? Sometimes 01/02/2024 [facility] Utilities Answer Date Recorded In the [...] often do you attend chur ch or hoahaoism services? More than 4 times per year [...] Recorded Patient Health Questionnaire-2 Score 2 01/02/2024 [facility] - Occupational [...] were you homeless or living in a fdc (including now)? No 01/02/2024 Sex and Gender [...] [facility] [address] [place] [address] Jodie Matthews MD [address] [place] [address] 02/14/2025 11:00 AM EDT Office Visit Isabela Morgan [address] [place] [address] Mina Betts MD MPH [address] [place] [address] 02/17/2025 11:30 AM EDT Telemedicine [facility] [address] [place] [address] Leonila Kern, LUIS-VOCAL MUSIC TEACHER [address] [facility] [address] [place] [address] 04/24/2025 2:45 PM EST Office Visit [facility] [address] [facility] [address] [place] [address] Courtney Mayfield MD [address] [facility] [address] [place] [address] 06/21/2025 10:30 AM EST Office Visit [facility] [address] [phone] Jessica Moore, BARREL CLEANER-VOCAL MUSIC TEACHER [address] [address] documented as of this encounter Visit Diagnoses Not on filedocumented in this encounter Additional Health Concerns Assessment Noted Time PHQ-9 Depression Total Score: 14 024 3:34 AM EDT A fall risk assessment has been complete d for the patient 10/08/2023 10:34 AM EDT documented as of this encounter Care Teams Fish And Wildlife Warden Relationship Specialty Start Date End Date Raquel Rayo MD [address] [place] [address] [place] [address] PCP - General 09/19/10 Courtney Mayfield MD [address] [facility] [address] [place] [address] Referring Physician Allergy and Immunology 02/12/24 documented as of this encounter
--- OUTSIDE RECORDS SUMMARY | 2025-02-03 08:54 | XMS_ITS | Encounter Summary ---
Author Organization [facility] Address [address], [address] [place] [address] Care Team Providers Care Government Affairs Researcher Name Role Phone Raquel Rayo MD Primary Care Provider [phone] Reason for Visit * Reason Comments Medication Refill Encounter Details Date Type Department Care Team ([facility] st Contact Info) Description 04/24/2020 Refill [facility] Neurology Specialist [address] [place] [address] Juan C Angelo MD [address] [place], [place] [phone] Medication Refill Social History Tobacco Use Types [...] documented as of this encounter Care Teams Government Affairs Researcher Relationship Specialty Start Date End Date Raquel Rayo MD PCP - General Family Medicine 11/21/19 documented as of this encounter
--- OUTSIDE RECORDS SUMMARY | 2025-02-03 08:54 | XMS_ITS | Encounter Summary ---
Author Organization [facility] Address [address] [place] [address] Phone Care Team Providers Care Intake Clerk Name Role Phone Raquel Rayo MD Primary Care Provider Courtney Mayfield MD Unavailable [phone] Encounter Details Date Type Department Care Team (Late st Contact Info) Description 02/05/2024 Scanned Document [facility] [address] [place] [address] Courtney Mayfield MD [address] [facility] [address] [phone] Social History Tobacco Use Types Packs/Day Years [...] from your doctor or pharmacy? Sometimes 01/02/2024 [facility] Utilities Answer Date Recorded In [...] often do you attend chur ch or sikh services? More than 4 times per year [...] Recorded Patient Health Questionnaire-2 Score 2 01/02/2024 [facility] - Occupational [...] time in the past [address] [facility], were you homeless or living in a [...] [facility] [address] [place] [phone] Jodie Matthews MD [address] [place] [address] 02/14/2025 11:00 AM EDT Office Visit Isabela Morgan [address] [place] [address] Mina Betts MD MPH [address] [place] [phone] 02/17/2025 11:[address] [facility] [address] [place] [phone] Leonila Kern APRN-CNP [address] [facility], [address] [place] [address] 04/24/2025 2:45 PM EST Office Visit [facility] [address] [address] Courtney Mayfield MD [address] [facility], [address] [address] 06/21/2025 10:30 AM EST [facility] [address] [phone] Jessica Moore, ANTIQUE AUTO MUSEUM MAINTENANCE WORKER-TRAFFIC OPERATOR [address] [address] documented as of this encounter Visit Diagnoses Not on filedocumented in this encounter Additional Health Concerns Assessment Noted Time PHQ-9 Depression Total Score: 14 024 3:34 AM EDT A fall risk assessment has been complete d for the patient 10/08/2023 10:34 AM EDT documented as of this encounter Care Teams Intake Clerk Relationship Specialty Start Date End Date Raquel Rayo MD [address] [place] [address] [place] [address] PCP - General 09/19/10 Courtney Mayfield MD [address] [facility], [address] [address] Referring Physician Allergy and Immunology 02/12/24 documented as of this encounter
--- OUTSIDE RECORDS SUMMARY | 2025-02-03 08:54 | XMS_ITS | Encounter Summary ---
Author Organization [facility] Address [address] [place] [address] Phone Care Team Providers Care Tarp Repairer Name Role Phone Raquel Rayo MD Primary Care Provider [phone] Courtney Mayfield MD Unavailable [phone] Reason for Visit * Reason Comments Med Refill Encounter Details Date Type Department Care Team (Late st Contact Info) Description 04/02/2024 Refill [facility] [address] [place] [address] Courtney Mayfield MD [address] [facility], [facility] [address] [place], [place] [phone] Asthma with chronic obstructive pulmonary disease (COPD) [...] from your doctor or pharmacy? Sometimes 01/02/2024 [facility] Utilities Answer Date Recorded In the [...] How often do you attend chur or samaritan services? More than 4 times per year [...] Recorded Patient Health Questionnaire-2 Score 2 01/02/2024 [facility] - [facility] Stress Questionnaire Answer Date [...] living in a mcfp (including now)? No 01/02/2024 Sex and Gender [...] [facility] [address] [place] [phone] Jodie Matthews MD [address] [place], [place] [phone] 02/14/2025 11:00 AM EDT Office Visit Isabela Morgan [address] [place] [address] Mina Betts MD MPH [address] [place] [address] 02/17/2025 11:30 AM EDT Telemedicine [facility] [address] [place] [address] Leonila Kern, BUSINESS DEPARTMENT CHAIR-REGIONAL BUSINESS MANAGER [address] [facility] [address] [place] [address] 04/24/2025 2:45 PM EST Office Visit [facility] [address] [facility] [address] [place] [address] Courtney Mafyield MD [address] [facility], [facility] [address] [place] [address] 06/21/2025 10:30 AM EST Office Visit [facility] [address] [phone] Jessica Moore, BUSINESS DEPARTMENT CHAIR-REGIONAL BUSINESS MANAGER [address] [address] documented as of this encounter Visit Diagnoses Diagnosis Asthma with chronic obstructive pulmonary disease (COPD) (Multi) Chronic obstructive asthma, unspecified documented in this encounter Additional Health Concerns Assessment Noted Time PHQ-9 Depression Total Score: 14 024 3:34 AM EDT A fall risk assessment has been complete d for the patient 10/08/2023 10:34 AM EDT documented as of this encounter Care Teams Tarp Repairer Relationship Specialty Start Date End Date Raqeul Rayo MD [address] [place] [address] PCP - General 09/19/10 Courtney Mayfield MD [address] [facility], [facility] [address] [place], [place] [phone] Referring Physician Allergy and Immunology 02/12/24 documented as of this encounter
--- OUTSIDE RECORDS SUMMARY | 2025-02-03 08:54 | XMS_ITS | Encounter Summary ---
Author Organization [facility] Address [address] [place] [address] Care Team Providers Care Inpatient Nursing Aide Name Role Phone Raquel Rayo MD Primary Care Provider [phone] Reason for Visit * Reason Comments Medication Refill Encounter Details Date Type Department Care Team (Late st Contact Info) Description 03/19/2020 Refill [facility] Primary [facility] [place] [address] [place] [phone] Bertram Peters, LINUX NETWORK ENGINEER - ABORIGINAL LIAISON OFFICER [address] [place] [address] Medication Refill Social History Tobacco [...] documented as of this encounter Care Teams Inpatient Nursing Aide Relationship Specialty Start Date End Date Raquel Rayo MD PCP - General Family Medicine 11/21/19 documented as of this encounter
--- OUTSIDE RECORDS SUMMARY | 2025-02-03 08:54 | XMS_ITS | Encounter Summary ---
Author Organization [facility] Address [address] [place] [address] Phone Care Team Providers Care Tower Air Traffic Control Specialist Name Role Phone Raquel Rayo MD Primary Care Provider [phone] Courtney Mayfield MD Unavailable [phone] Encounter Details Date Type Department Care Team (Late st Contact Info) Description 02/05/[address]24 [address] [facility] [address] [place] [address] Courtney Mayfield MD 9[address] [facility] [address] [phone] Social History Tobacco Use Types Packs/Day Years [...] doctor or pharmacy? Sometimes 01/02/2024 [facility] Utilities Answer Date Recorded In the [...] [place] [facility] [place] (including now)? No 01/02/2024 Sex and Gender [...] [facility] [address] [place] [phone] Jodie Matthews MD [address] [place] [address] 02/14/2025 11:00 AM EDT Office Visit Isabela Morgan [address] [place] [address] Mina Betts MD MPH [address] [place] [phone] 02/17/2025 11:30 AM EDT Telemedicine [facility] [address] [place] [phone] Leonila Kern APRN-CNP [address] [facility], [address] [place] [address] 04/24/2025 2:45 PM EST Office Visit [facility] [address] [address] Courtney Mayfield MD [address] [facility], [address] [address] 06/21/2025 10:30 AM EST Office Visit [facility] [address] [phone] Jessica Moore, REAR LOAD TRUCK DRIVER-DOG HANDLER [address] [address] documented as of this encounter Visit Diagnoses Not on filedocumented in this encounter Additional Health Concerns Assessment Noted Time PHQ-9 Depression Total Score: 14 024 3:34 AM EDT A fall risk assessment has been complete d for the patient 10/08/2023 10:34 AM EDT documented as of this encounter Care Teams Tower Air Traffic Control Specialist Relationship Specialty Start Date End Date Raquel Rayo MD [address] [place] [address] [place] [address] PCP - General 09/19/10 Courtney Mayfield MD [address] [facility], [address] [address] Referring Physician Allergy and Immunology 02/12/24 documented as of this encounter
--- OUTSIDE RECORDS SUMMARY | 2025-02-03 08:54 | XMS_ITS ---
Author Organization [facility] Address [address] [place] [address] Phone Care Team Providers Care Narrow Fabrics Weaver Name Role Phone Raquel Rayo MD Primary Care Provider [phone] Courtney Mayfield MD Unavailable [phone] Pulmonology Core Status:Enrolled (Active) Start date:04/16/2023 Enrollment date:09/22/2024 Current support & services provided:Clinical Management, Refill Management, Benefits and PA Management Linked medications:tezepelumab-ekko (Active) Linked problems:Asthma with chronic obstructive pulmonary disease (COPD) (Multi) (Active), Asthma, severe persistent, poorly-controlled, with acute exacerbation (Multi) (Resolved) Overview CORE Program - [facility] Continued Care and Services Coordination
--- OUTSIDE RECORDS SUMMARY | 2025-02-03 08:54 | XMS_ITS | Encounter Summary ---
Author Organization [facility] Address [address] [place] [address] Phone Care Team Providers Care Ice Skater Name Role Phone Raquel Rayo MD Primary Care Provider [phone] Courtney Mayfield MD Unavailable [phone] Encounter Details Date Type Department Care Team (Late st Contact Info) Description 06/23/2024 Scanned Document [facility] [address] [facility] [address] [place] [address] Courtney Mayfield MD [facility] [facility] [address] [place], [place] [phone] Social History Tobacco Use Types Packs/Day Years [...] often do you attend chur ch or adventism services? More than 4 times per year [...] [facility] - Occupational Stress Questionnaire Answer Date [...] Visit [facility] [address] [place] [phone] Jodie Matthews MD [address] [place], [place] [phone] 02/14/2025 11:00 AM EDT Office Visit Isabela Morgan [address] [place] [address] Mina Betts MD MPH [address] [place] [address] 02/17/2025 11:30 AM EDT Telemedicine [facility] [address] [place] [phone] Leonila Kern, CAN BANDER OPERATOR-HUMAN CAPITAL ANALYST [address] [facility], [address] [address] 04/24/2025 2:45 PM EST Office Visit [facility] [address] [facility] [address] [place] [address] Courtney Mayfield MD [address] [address] 06/21/2025 10:30 AM EST Office Visit [facility] [address] [phone] Jessica Moore, CAN BANDER OPERATOR-HUMAN CAPITAL ANALYST [address] [address] documented as of this encounter Visit Diagnoses Not on filedocumented in this encounter Additional Health Concerns Assessment Noted Time PHQ-9 Depression Total Score: 15 024 3:06 PM EST A fall risk assessment has been complete d for the patient 10/08/2023 10:34 AM EDT documented as of this encounter Care Teams Ice Skater Relationship Specialty Start Date End Date Raquel Rayo MD [address] [place] [address] PCP - General 09/19/10 Courtney Mayfield MD [address] [facility], [address] [address] Referring Physician Allergy and Immunology 02/12/24 documented as of this encounter
--- OUTSIDE RECORDS SUMMARY | 2025-02-03 08:54 | XMS_ITS | Encounter Summary ---
Author Organization [facility] Address [address] [place] [address] Phone Care Team Providers Care Silverware Assembler Name Role Phone Raquel Rayo MD Primary Care Provider [phone] Courtney Mayfield MD Unavailable [phone] Encounter Details Date Type Department Care Team (Late st Contact Info) Description 12/14/2023 Scanned Document [facility] [address] [facility] [address] [place] [address] Courtney Mayfield MD 960 [facility], [facility] [address] [place], [place] [phone] Social History Tobacco Use Types Packs/Day Years [...] [facility] [address] [place] [address] Jodie Matthews MD [address] [place], [place] [phone] 02/14/2025 11:00 AM EDT Office Visit Isabelasahil Meyer Eddie [address] [place] [phone] Mina Betts MD MPH [address] [place] [address] 02/17/2025 11:30 AM EDT Telemedicine [facility] [address] [place] [address] Leonila Kern, PATIENT NAVIGATOR-SQUARING MACHINE OPERATOR [address] [facility], [facility] [address] [place] [address] 04/24/2025 2:45 PM EST Office Visit [facility] [address] [facility] [address] [place] [address] Courtney Mayfield MD [address] [facility], [facility] [address] [place], [place] [phone] 06/21/2025 10:30 AM EST Office Visit [facility] [address] [place] [address] Jessica Moore, PATIENT NAVIGATOR-SQUARING MACHINE OPERATOR [address] [place], [place] [phone] documented as of this encounter Visit Diagnoses Not on filedocumented in this encounter Additional Health Concerns Assessment Noted Time PHQ-9 Depression Total Score: 18 024 2:37 PM EDT A fall risk assessment has been complete d for the patient 10/08/2023 10:34 AM EDT documented as of this encounter Care Teams Silverware Assembler Relationship Specialty Start Date End Date Raquel Rayo MD [address] [place] [address] [place] [address] PCP - General 09/19/10 Courtney Mayfield MD [address] [place] [address], [facility] [address] [place] [address] Referring Physician Allergy and Immunology 02/12/24 documented as of this encounter
--- OUTSIDE RECORDS SUMMARY | 2025-02-03 08:54 | XMS_ITS | Encounter Summary ---
Author Organization [facility] Address [address], [address] [place] [address] Care Team Providers Care Record Systems Analyst Name Role Phone Raquel Rayo MD Primary Care Provider [phone] Reason for Visit * Reason Comments Medication Refill Encounter Details Date Type Department Care Team (Late st Contact Info) Description 05/05/2020 Refill [facility] Neu[facility] Specialist [address] [facility] [address] [place] [address] Juan C Angelo MD [address] [place], [place] [phone] Medication Refill Social History Tobacco Use Types [...] documented as of this encounter Care Teams Record Systems Analyst Relationship Specialty Start Date End Date Raquel Rayo MD PCP - General Family Medicine 11/21/19 documented as of this encounter
--- OUTSIDE RECORDS SUMMARY | 2025-02-03 08:54 | XMS_ITS ---
Author Organization [facility] Address [address] [place] [address] Phone Care Team Providers Care Upholstery Estimator Name Role Phone Raquel Rayo MD Primary Care Provider [phone] Courtney Mayfield MD Unavailable Migraine Core Status:Enrolled (Active) Start date:06/22/2023 Enrollment date:06/22/2023 Current support & services provided:Clinical Management, Refill Management, Benefits and PA Management Linked medications:galcanezumab-gnlm (Active) Linked problems:Chronic migraine without aura without status migrainosus, not intractable (Active) Continued Care and Services Coordination
--- OUTSIDE RECORDS SUMMARY | 2025-02-03 08:54 | XMS_ITS | Encounter Summary ---
Author Organization [facility] Address [address] [place] [address] Phone Care Team Providers Care Catering Sales Manager Name Role Phone Raquel Rayo MD Primary Care Provider [phone] Courtney Mayfield MD Unavailable [phone] Encounter Details Date Type Department Care Team (Late st Contact Info) Description 03/17/2024 Scanned Document [facility] [address] [place] [address] Courtney Mayfield MD [address]60 [facility], [facility] [address] [place] [phone] Social History Tobacco Use Types Packs/Day Years [...] from your doctor or pharmacy? Sometimes 01/02/2024 [facility] Utilities Answer Date Recorded In [...] often do you attend chur ch or hinduism services? More than 4 times per year 01/02/2024 Do you belong to any clubs o r organizations such as shinto groups, unions, fraternal or athletic groups, or [...] Recorded Patient Health Questionnaire-2 Score 2 01/02/2024 [facility] of Occupat ional Health - Occupational Stress [...] any time in the past 12 m [facility], were you homeless or living in a residential (including now)? No 01/02/2024 Sex and Gender [...] Description 02/08/2025 11:20 AM EDT Procedure Visit [facility] [address] [place] [address] Jodie Matthews MD [address] [place] [address] 02/14/2025 11:00 AM EDT Office Visit Isabela Morgan [address] [place] [address] Mina Betts MD MPH [address] [place] [address] 02/17/2025 11:30 AM EDT Telemedicine [facility] [address] [place] [address] Leonila Kern, LUIS-QUALITY ASSURANCE CLERK [address] [facility], [facility] [address] [place] [address] 04/24/2025 2:45 PM EST Office Visit [facility] [address] [facility] [address] [place] [address] Courtney Mayfield MD [address] [facility], [facility] [address] [place] [address] 06/21/2025 10:30 AM EST Office Visit [facility] [address] [phone] Jessica Moore, SHANK SKINNER-QUALITY ASSURANCE CLERK [address] [address] documented as of this encounter Visit Diagnoses Not on filedocumented in this encounter Additional Health Concerns Assessment Noted Time PHQ-9 Depression Total Score: 14 024 3:34 AM EDT A fall risk assessment has been complete d for the patient 10/08/2023 10:34 AM EDT documented as of this encounter Care Teams Catering Sales Manager Relationship Specialty Start Date End Date Raquel Rayo MD [address] [place] [address] [place] [address] PCP - General 09/19/10 Courtney Mayfield MD [address] [facility], [facility] [address] [place] [address] Referring Physician Allergy and Immunology 02/12/24 documented as of this encounter
--- OUTSIDE RECORDS SUMMARY | 2025-02-03 08:54 | XMS_ITS | Encounter Summary ---
Author Organization [facility] Address [address], [address] [place] [address] Care Team Providers Care Cdl Bulk Driver Name Role Phone Raquel Rayo MD Primary Care Provider [phone] Reason for Visit * Reason Comments Medication Refill Encounter Details Date Type Department Care Team (Late st Contact Info) Description 01/22/2020 Refill [facility] Neurology Specialist [address] [facility] [address] [place] [address] Juan C Angelo MD [address] [place], [place] [phone] Medication Refill Social History Tobacco Use Types [...] documented as of this encounter Care Teams Cdl Bulk Driver Relationship Specialty Start Date End Date Raquel Rayo MD PCP - General Family Medicine 11/21/19 documented as of this encounter
--- OUTSIDE RECORDS SUMMARY | 2025-02-03 08:54 | XMS_ITS | Encounter Summary ---
Author Organization [facility] Address [address], [address] [place] [address] Care Team Providers Care Karate Black Belt Name Role Phone Raquel Rayo MD Primary Care Provider [phone] Reason for Visit * Reason Comments Medication Refill Encounter Details Date Type Department Care Team (Late st Contact Info) Description 02/01/2020 Refill [facility] Specialist [address] [facility] [address] [place] [address] Juan C Angelo MD [address] [place], [place] [phone] Medication Refill Social History Tobacco Use Types [...] documented as of this encounter Care Teams Karate Black Belt Relationship Specialty Start Date End Date Raquel Rayo MD PCP - General Family Medicine 11/21/19 documented as of this encounter
--- OUTSIDE RECORDS SUMMARY | 2025-02-03 08:54 | XMS_ITS | Encounter Summary ---
Author Organization [facility] Address [address] [address], [address] [place] [address] Care Team Providers Care Clinical Trial Coordinator Name Role Phone Raquel Rayo MD Primary Care Provider [phone] Reason for Visit * Reason Comments Medication Refill Encounter Details Date Type Department Care Team (Late st Contact Info) Description 07/29/2019 Refill [facility] [place] [address] [place] [address] Deats, Oni Rowan, COTTON FARMWORKER - YOUTH MANAGER [address] [facility] [address] [place] [address] Medication Refill Social History Tobacco [...] as of this encounter Care Teams Clinical Trial Coordinator Relationship Specialty Start Date End Date Raquel Rayo MD PCP - General Family Medicine 11/21/19 documented as of this encounter
--- OUTSIDE RECORDS SUMMARY | 2025-02-03 08:54 | XMS_ITS | Encounter Summary ---
Author Organization [facility] Address [address], [address] [place] [address] Care Team Providers Care Electric Shovel Operator Name Role Phone Raquel Rayo MD Primary Care Provider [phone] Reason for Visit * Reason Comments Medication Refill Encounter Details Date Type Department Care Team (Late st Contact Info) Description 07/31/2019 Refill [facility] Neu[facility] Specialist [address] [facility] [address] [place] [address] Liliana Madrigal, WINDOWS SERVER ARCHITECT [facility] [address] [place] [address] Medication Refill Social History Tobacco [...] documented as of this encounter Care Teams Electric Shovel Operator Relationship Specialty Start Date End Date Raquel Rayo MD PCP - General Family Medicine 11/21/19 documented as of this encounter
--- OUTSIDE RECORDS SUMMARY | 2025-02-03 08:54 | XMS_ITS | Encounter Summary ---
Author Organization [facility] Address [address], [address] [place] [address] Care Team Providers Care Personnel Coordinator Name Role Phone Raquel Rayo MD Primary Care Provider [phone] Reason for Visit * Reason Comments Medication Refill Encounter Details Date Type Department Care Team ([facility] st Contact Info) Description 12/25/2019 Refill [facility] [place] [address] [place] [address] Bertram Peters, BLOCK HAND - BUSINESS SERVICES DIRECTOR [address] [place] [address] Medication Refill Social History Tobacco [...] documented as of this encounter Care Teams Personnel Coordinator Relationship Specialty Start Date End Date Raquel Rayo MD PCP - General Family Medicine 11/21/19 documented as of this encounter
--- OUTSIDE RECORDS SUMMARY | 2025-02-03 08:54 | XMS_ITS | Encounter Summary ---
Author Organization [facility] Address [address] [place] [address] Phone Care Team Providers Care Parts Interpreter Name Role Phone Raquel Rayo MD Primary Care Provider Courtney Mayfield MD Unavailable [phone] Encounter Details Date Type Department Care Team (Late st Contact Info) Description 06/01/2024 Scanned Document [facility] [address] [place] [address] Courtney Mayfield MD [address] [facility], [facility] [address] [place] [phone] Social History Tobacco Use Types Packs/Day Years [...] from your doctor or pharmacy? Sometimes 01/02/2024 [facility] Utilities Answer Date Recorded In [...] often do you attend chur ch or methodist services? More than 4 times per year 01/02/2024 Do you belong to any clubs o r organizations such as rastafarian groups, unions, fraternal or athletic groups, or [...] Recorded Patient Health Questionnaire-2 Score 4 04/07/2024 [facility] of Occupat ional Health - Occupational [...] any time in the past 12 m [facility], were you homeless or living in a custodial (including now)? No 01/02/2024 Sex and Gender [...] PM EST documented as of this encounter Functional Status * BP Answer Date of Assessment Author 138/82 06/02/2024 1:07 PM EST Angela Hebert MA * Pulse Answer Date of Assessment Author 76 06/02/2024 1:07 PM EST Angela Hebert MA * Communicable Disease Screening Question Answer Date of Assessment Author Do you have any of the follo wing new or worsening symptoms? None of these 06/02/2024 12:58 PM EST Chiqui Harmon sa documented as of this encounter Plan of Treatment Upcoming Encounters Date Type Department Care Team (Late st Contact Info) Description 02/08/2025 11:20 AM EDT Procedure Visit [facility] [address] [place] [address] Jodie Matthews MD [address] [place], [place] [phone] 02/14/2025 11:00 AM EDT Office Visit Isabela Morgan [address] [place] [address] Mina Betts MD MPH [address] [facility] [address] [place] [address] 02/17/2025 11:30 AM EDT Telemedicine [facility] [address] [facility] [address] [place] [address] Leonila Kern PRESS HAND-SOFT DRINK POWDER MIXER [address] [facility], [facility] [address] [place] [address] 04/24/2025 2:45 PM EST Office Visit [facility] [address] [facility] [address] [place] [address] Courtney Mayfield MD [address] [facility], [facility] [address] [place], [place] [address] 06/21/2025 10:30 AM EST Office Visit [facility] [address] [facility] [address] [place] [address] Jessica Moore, PRESS HAND-SOFT DRINK POWDER MIXER [address] [facility] [address] [place], [place] [address] documented as of this encounter Visit Diagnoses Not on filedocumented in this encounter Additional Health Concerns Assessment Noted Time PHQ-9 Depression Total Score: 15 024 3:06 PM EST A fall risk assessment has been complete d for the patient 10/08/2023 10:34 AM EDT documented as of this encounter Care Teams Parts Interpreter Relationship Specialty Start Date End Date Raquel Rayo MD [address] [place] [address] [place] [address] PCP - General 09/19/10 Courtney Mayfield MD [address] [facility], [facility] [address] [place] [address] Referring Physician Allergy and Immunology 02/12/24 documented as of this encounter
--- OUTSIDE RECORDS SUMMARY | 2025-02-03 08:54 | XMS_ITS | Encounter Summary ---
Author Organization [facility] Address [address] [place] [address] Phone Care Team Providers Care Reference Test Clerk Name Role Phone Raquel Rayo MD Primary Care Provider [phone] Courtney Mayfield MD Unavailable Encounter Details Date Type Department Care Team (Late st Contact Info) Description 03/08/2024 Scanned Document [facility] [address] [place] [address] [place] [address] Courtney Mayfield MD 960 [facility], [facility] [address] [place] [phone] Social History Tobacco Use Types Packs/Day Years [...] Recorded Patient Health Questionnaire-2 Score 2 01/02/2024 [facility] of Occupat ional Health - [...] were you homeless or living in a chcf (including now)? No 01/02/2024 Sex and Gender [...] as of this encounter Functional Status * Pulse Answer Date of Assessment Author 75 03/08/2024 9:27 AM EST Christine Araujo MA * Communicable Disease Screening Question Answer Date of Assessment Author Do you have any of the follo wing new or worsening symptoms? None of these 03/08/2024 9:23 AM EST Elise Blackmon documented as of this encounter Plan of Treatment Upcoming Encounters Date Type Department Care Team (Late st Contact Info) Description 02/08/2025 11:20 AM EDT Procedure Visit [facility] [address] [place] [address] Jodie Matthews MD [address] [place], [place] [phone] 02/14/2025 11:00 AM EDT Office Visit Isabela Mitch Eddie [address] [place] [address] Mina Betts MD MPH [address] [place] [address] 02/17/2025 11:30 AM EDT Telemedicine [facility] [address] [facility] [address] [place] [address] Leonila Kern PROBATION AGENT-POLLUTION CONTROL CHEMIST [address] [facility], [facility] [address] [place] [address] 04/24/2025 2:45 PM EST Office Visit [facility] [address] [facility] [address] [place] [address] Courtney Mayfield MD [address] [facility], [facility] [address] [place] [address] 06/21/2025 10:30 AM EST Office Visit [facility] [address] [facility] [address] [place] [address] Jessica Moore, PROBATION AGENT-POLLUTION CONTROL CHEMIST [address] [facility] [address] [place] [address] documented as of this encounter Visit Diagnoses Not on filedocumented in this encounter Additional Health Concerns Assessment Noted Time PHQ-9 Depression Total Score: 14 01/01/ 024 3:34 AM EDT A fall risk assessment has been complete d for the patient 10/08/2023 10:34 AM EDT documented as of this encounter Care Teams Reference Test Clerk Relationship Specialty Start Date End Date Raquel Rayo MD [address] [place] [address] [place] [address] PCP - General 09/19/10 Courtney Mayfield MD [address] [facility], [facility] [address] [place], [place] [address] Referring Physician Allergy and Immunology 02/12/24 documented as of this encounter
--- OUTSIDE RECORDS SUMMARY | 2025-02-03 08:54 | XMS_ITS | Encounter Summary ---
Author Organization [facility] Address [address] [place] [address] Phone Care Team Providers Care Sterile Products Processor Name Role Phone Raquel Rayo MD Primary Care Provider [phone] Courtney Mayfield MD Unavailable [phone] Encounter Details Date Type Department Care Team (Late st Contact Info) Description 02/04/2024 Scanned Document [facility] [address] [place] [address] Courtney Mayfield MD 960 [facility], [facility] [address] [place] [phone] Social History Tobacco Use Types Packs/Day Years [...] from your doctor or pharmacy? Sometimes 01/02/2024 [facility] Utilities Answer Date Recorded [...] often do you attend chur ch or zoroastrianism services? More than 4 times [...] Recorded Patient Health Questionnaire-2 Score 2 01/02/2024 [facility] of Occupat ional Health - Occupational Stress [...] were you homeless or living in a mcc (including now)? No 01/02/2024 Sex and Gender Information Value Date Recorded Sex Assigned at Not on file Legal Sex Male 11:51 PM EST Gender Identity Not on file Sexual Orientation Not on file documented as of this encounter Plan of Treatment Upcoming Encounters Date Type Department Care Team (Late st Contact Info) Description 02/08/2025 11:20 AM EDT Procedure Visit [facility] [address] [place] [address] Jodie Matthews MD [address] [place] [address] 02/14/2025 11:00 AM EDT Office Visit Isabela Morgan [address] [place] [address] Mina Betts MD MPH [address] [place] [phone] 02/17/2025 11:30 AM EDT Telemedicine [facility] [address] [place] [phone] Leonila Kern APRN-CNP [address] [facility], [address] [place] [address] 04/24/2025 2:45 PM EST Office Visit [facility] [address] [address] Courtney Mayfield MD [address] [facility], [address] [address] 06/21/2025 10:30 AM EST Office Visit [facility] [address] [phone] Jessica Moore, CONSTRUCTION PERSON-PNEUMATIC TOOL OPERATOR [address] [address] documented as of this encounter Visit Diagnoses Not on filedocumented in this encounter Additional Health Concerns Assessment Noted Time PHQ-9 Depression Total Score: 14 024 3:34 AM EDT A fall risk assessment has been complete d for the patient 10/08/2023 10:34 AM EDT documented as of this encounter Care Teams Sterile Products Processor Relationship Specialty Start Date End Date Raquel Rayo MD [address] [place] [address] [place] [address] PCP - General 09/19/10 Courtney Mayfield MD [address] [facility], [address] [address] Referring Physician Allergy and Immunology 02/12/24 documented as of this encounter
--- OUTSIDE RECORDS SUMMARY | 2025-02-03 08:54 | XMS_ITS ---
Author Organization [facility] Address [address] [place] [address] Phone Care Team Providers Care Associate Account Director Name Role Phone Raquel Rayo MD Primary Care Provider [phone] Courtney Mayfield MD Unavailable [phone] Migraine Non-Core Status:Enrolled (Active) Start date:01/18/2024 Enrollment date:01/18/2024 Enrollment reason:Identified from a specialty prescription Current support & services provided:Refill Management, Benefits and PA Management Continued Care and Services Coordination
--- OUTSIDE RECORDS SUMMARY | 2025-02-03 08:54 | XMS_ITS | Encounter Summary ---
Author Organization [facility] Address [address] [facility] [address], [address] [place] [address] Care Team Providers Care Broomcorn Scraper Name Role Phone Raquel Rayo MD Primary Care Provider [phone] Reason for Visit * Reason Comments Medication Refill Encounter Details Date Type Department Care Team (Late st Contact Info) Description 2020 Refill [facility] Neurology Specialist [address] [facility] [address] [place] [address] Juan C Angelo MD [address] [place], [place] [phone] Medication Refill Social History Tobacco Use Types [...] documented as of this encounter Care Teams Broomcorn Scraper Relationship Specialty Start Date End Date Raquel Rayo MD PCP - General Family Medicine 11/21/19 documented as of this encounter
--- OUTSIDE RECORDS SUMMARY | 2025-02-03 08:55 | XMS_ITS | Encounter Summary ---
Author Organization [facility] Address [address] [place] [address] Phone Care Team Providers Care Internal Communications Intern Name Role Phone Raquel Rayo MD Primary Care Provider Courtney Mayfield MD Unavailable [phone] Encounter Details Date Type Department Care Team (Late st Contact Info) Description 07/05/2024 Scanned Document [facility] [address] [place] [address] Courtney Mayfield MD 960 Formerly named [facility], [facility] [address] [place] [phone] Social History Tobacco Use Types Packs/Day Years [...] from your doctor or pharmacy? Sometimes 01/02/2024 [facility] Utilities Answer Date Recorded In the [...] often do you attend chur ch or scientology services? More than 4 times per year 01/02/2024 Do you belong to any clubs o r organizations such as anabaptism groups, unions, fraternal or athletic groups, or [...] Recorded Patient Health Questionnaire-2 Score 4 04/07/2024 [facility] - [...] time in the past 12 m [facility], were you homeless or living in [...] * BP Answer Date of Assessment Author 138/68 07/06/2024 2:27 PM EST Angela Hebert MA * Pulse Answer Date of Assessment Author 80 07/06/2024 2:27 PM EST Angela Hebert MA * Communicable Disease Screening Question Answer Date of Assessment Author Do you have any of the follo wing new or worsening symptoms? None of these 07/06/2024 2:20 PM EST Divine Harmon documented as of this encounter Plan of Treatment Upcoming Encounters Date Type Department Care Team (Late st Contact Info) Description 02/08/2025 11:20 AM EDT Procedure Visit [facility] [address] [place] [address] Jodie Mathtews MD [address] [place], [place] [phone] 02/14/2025 11:00 AM EDT Office Visit Isabela Morgan [address] [place] [phone] Mina Betts MD MPH [address] [facility] 200 [place] [address] 02/17/2025 11:30 AM EDT Telemedicine [facility] [address] [facility] [address] [place] [address] Leonila Kern HEATING UNIT MECHANIC-AUTHORS MOTIVATIONAL [address] [facility], [facility] [address] [place] [address] 04/24/2025 2:45 PM EST Office Visit [facility] [address] [facility] [address] [place] [address] Courtney Mayfield MD [address] [facility], [facility] [address] [place], [place] [phone] 06/21/2025 10:30 AM EST Office Visit [facility] [address] [facility] [address] [place] [address] Jessica Moore, HEATING UNIT MECHANIC-AUTHORS MOTIVATIONAL [address] [facility] [address] [place], [place] [phone] documented as of this encounter Visit Diagnoses Not on filedocumented in this encounter Additional Health Concerns Assessment Noted Time PHQ-9 Depression Total Score: 15 024 3:06 PM EST A fall risk assessment has been complete d for the patient 10/08/2023 10:34 AM EDT documented as of this encounter Care Teams Internal Communications Intern Relationship Specialty Start Date End Date Raquel Rayo MD [address] [place] [address] [place] [address] PCP - General 09/19/10 Courtney Mayfield MD [address] [facility], [facility] [address] [place] [address] Referring Physician Allergy and Immunology 02/12/24 documented as of this encounter
--- OUTSIDE RECORDS SUMMARY | 2025-02-03 08:55 | XMS_ITS | Encounter Summary ---
Author Organization [facility] Address [address] [place] [address] Phone Care Team Providers Care Qc Analyst Name Role Phone Raquel Rayo MD Primary Care Provider [phone] Courtney Mayfield MD Unavailable [phone] Encounter Details Date Type Department Care Team (Late st Contact Info) Description 09/05/2024 Scanned Document [facility] [address] [place] [address] Courtney Mayfield MD 960 [facility], [facility] [address] [place] [phone] Social History Tobacco Use Types Packs/Day Years [...] from your doctor or pharmacy? Sometimes 01/02/2024 [facility] Utilities Answer Date Recorded In the [...] often do you attend chur ch or caodaism services? More than 4 times per year [...] Patient Health Questionnaire-2 Score 6 08/10/2024 [facility] - [...] any time in the past 12 m [facility], were you homeless or living in a [...] [facility] [address] [place] [address] Jodie Matthews MD [address] [place], [place] [phone] 02/14/2025 11:00 AM EDT Office Visit Isabela Morgan [address] [place] [address] Mina Betts MD MPH [address] [place] [address] 02/17/2025 11:30 AM EDT Telemedicine [facility] [address] [place] [address] Leonila Kern, LUIS-FUNCTIONAL TESTER [address] [facility] Recovery Clinic, [facility] [address] [place] [address] 04/24/2025 2:45 PM EST Office Visit [facility] [address] [facility] [address] [place] [address] Courtney Mayfield MD [address] [facility], [facility] [address] [place] [address] 06/21/2025 10:30 AM EST Office Visit [facility] [address] [phone] Jessica Moore, REFRIGERATOR TESTER-FUNCTIONAL TESTER [address] [address] documented as of this encounter Visit Diagnoses Not on filedocumented in this encounter Additional Health Concerns Assessment Noted Time PHQ-9 Depression Total Score: 23 025 11:53 AM EDT A fall risk assessment has been complete d for the patient 08/10/2024 11:53 AM EDT documented as of this encounter Care Teams Qc Analyst Relationship Specialty Start Date End Date Raquel Rayo MD [address] [place] [address] PCP - General 09/19/10 Courtney Mayfield MD [address] [facility], [facility] [address] [place] [address] Referring Physician Allergy and Immunology 02/12/24 documented as of this encounter
--- OUTSIDE RECORDS SUMMARY | 2025-02-03 08:55 | XMS_ITS | Encounter Summary ---
Author Organization [facility] Address [address] [facility], [address] [place] [address] Care Team Providers Care Coal Hiker Name Role Phone Raquel Rayo MD Primary Care Provider [phone] Reason for Visit * Reason Comments Medication Refill Encounter Details Date Type Department Care Team (Late st Contact Info) Description 08/09/2020 Refill [facility] [place] [address] [place] [phone] Bertram Peters, HIGH PRESSURE BOILER OPERATOR - CELERY STRIPPER [address] [place] [address] Medication Refill Social History Tobacco [...] documented as of this encounter Care Teams Coal Hiker Relationship Specialty Start Date End Date Raquel Rayo MD PCP - General Family Medicine 11/21/19 documented as of this encounter
--- OUTSIDE RECORDS SUMMARY | 2025-02-03 08:55 | XMS_ITS | Encounter Summary ---
Author Organization [facility] Address [address] [place] [address] Phone Care Team Providers Care Scarifier Operator Name Role Phone Raquel Rayo MD Primary Care Provider Courtney Mayfield MD Unavailable [phone] Encounter Details Date Type Department Care Team (Late st Contact Info) Description 09/05/2024 Scanned Document [facility][note 2] [address] [place] [address] Courtney Mayfield MD 960 [facility], [facility] [address] [place] [phone] Social History Tobacco Use Types Packs/Day Years [...] your doctor or pharmacy? Sometimes 01/02/2024 [facility] Utilities Answer Date Recorded In the past [...] often do you attend chur ch or restoration services? More than 4 times per year [...] Recorded Patient Health Questionnaire-2 Score 6 08/10/2024 [facility] [...] any time in the past 12 m [facility], were you homeless or living in a penitentiary (including now)? No 07/24/2024 Sex and Gender [...] 02/08/2025 11:20 AM EDT Procedure Visit [facility] [address] [place] [address] Jodie Matthews MD [address] [place], [place] [phone] 02/14/2025 11:00 AM EDT Office Visit Isabela Morgan [address] [place] [address] Mina Betts MD MPH [address] [place] [address] 02/17/2025 11:30 AM EDT Telemedicine [facility] [address] [place] [address] Leonila Kern, LUIS-PUBLISHING DIRECTOR [address] [facility] Recovery Clinic, [facility] [address] [place] [address] 04/24/2025 2:45 PM EST Office Visit [facility]note 2] [address] [facility] [address] [place] [address] Courtney Mayfield MD [address] [facility][note 2], [facility] [address] [place] [address] 06/21/2025 10:30 AM EST Office Visit [facility] [address] [phone] Jessica Moore, FACEPIECE LINE SUPERVISOR-PUBLISHING DIRECTOR [address] [address] documented as of this encounter Visit Diagnoses Not on filedocumented in this encounter Additional Health Concerns Assessment Noted Time PHQ-9 Depression Total Score: 23 025 11:53 AM EDT A fall risk assessment has been complete d for the patient 08/10/2024 11:53 AM EDT documented as of this encounter Care Teams Scarifier Operator Relationship Specialty Start Date End Date Raquel Rayo MD [address] [place] [address] PCP - General 09/19/10 Courtney Mayfield MD [address] [facility][note 2], [facility] [address] [place] [address] Referring Physician Allergy and Immunology 02/12/24 documented as of this encounter
--- OUTSIDE RECORDS SUMMARY | 2025-02-03 08:55 | XMS_ITS | Encounter Summary ---
Author Organization [facility] Address [address] [place] [address] Phone Care Team Providers Care Engineering Test Specialist Name Role Phone Raquel Rayo MD Primary Care Provider Courtney Mayfield MD Unavailable [phone] Encounter Details Date Type Department Care Team (Late st Contact Info) Description 08/23/2024 Scanned Document [facility] [address] [place] [address] Courtney Mayfield MD 960 [facility] [place] [address] [place] [phone] Social History Tobacco Use Types Packs/Day Years [...] your doctor or pharmacy? Sometimes 01/02/[address] [facility] Utilities Answer Date Recorded In the [...] Recorded Patient Health Questionnaire-2 Score 6 08/10/2024 [facility] [...] time in the past 12 m [facility], were you homeless or living in a longterm (including now)? No 07/24/2024 Sex and Gender [...] Description 02/08/2025 11:20 AM EDT Procedure Visit [facility] [address] [place] [address] Jodie Matthews MD [address] [place], [place] [phone] 02/14/2025 11:00 AM EDT Office Visit Isabela Morgan [address] [place] [address] Mina Betts MD MPH [address] [place] [address] 02/17/2025 11:30 AM EDT Telemedicine [facility] [address] [place] [address] Leonila Kern, LUIS-SUPERVISOR DOPING [address] [facility] Recovery Clinic, [place] [address] [place] [address] 04/24/2025 2:45 PM EST Office Visit [facility] [address] [place] [address] [place] [address] Courtney Mayfield MD [address] [facility], [place] [address] [place] [address] 06/21/2025 10:30 AM EST Office Visit [facility] [address] [phone] Jessica Moore, CHILD & ADOLESCENT PSYCHIATRIST-SUPERVISOR DOPING [address] [address] documented as of this encounter Visit Diagnoses Not on filedocumented in this encounter Additional Health Concerns Assessment Noted Time PHQ-9 Depression Total Score: 23 025 11:53 AM EDT A fall risk assessment has been complete d for the patient 08/10/2024 11:53 AM EDT documented as of this encounter Care Teams Engineering Test Specialist Relationship Specialty Start Date End Date Raquel Rayo MD [address] [place] [address] PCP - General 09/19/10 Courtney Mayfield MD [address] [facility], [place] [address] [place] [address] Referring Physician Allergy and Immunology 02/12/24 documented as of this encounter
--- OUTSIDE RECORDS SUMMARY | 2025-02-03 08:55 | XMS_ITS | Encounter Summary ---
Author Organization [facility] Address [address] [place] [address] Phone Care Team Providers Care Warehouse Person Name Role Phone Raquel Rayo MD Primary Care Provider [phone] Courtney Mayfield MD Unavailable Encounter Details Date Type Department Care Team (Late st Contact Info) Description 08/23/2024 Scanned Document [facility] [address] [place] [address] Courtney Mayfield MD 960 [facility], [facility] [address] [place] [phone] Social History Tobacco Use Types Packs/Day Years [...] from your doctor or pharmacy? Sometimes 01/02/2024 [facility] Utilities Answer Date Recorded In [...] often do you attend chur ch or yazidism services? More than 4 times per year 07/24/2024 Do you belong to any clubs o r organizations such as taoism groups, unions, fraternal or athletic groups, or [...] Recorded Patient Health Questionnaire-2 Score 6 08/10/2024 [facility] - [...] Description 02/08/2025 11:20 AM EDT Procedure Visit [facility] [address] [place] [address] Jodie Matthews MD [address] [place], [place] [phone] 02/14/2025 11:00 AM EDT Office Visit Isabela Morgan [address] [place] [address] Mina Betts MD MPH [address] [place] [address] 02/17/2025 11:30 AM EDT Telemedicine [facility] [address] [place] [address] Leonila Kern, LUIS-DELIVERY AND INSTALLATION SUBCONTRACTOR [address] [facility] Recovery Clinic, [facility] [address] [place] [address] 04/24/2025 2:45 PM EST Office Visit [facility] [address] [facility] [address] [place] [address] Courtney Mayfield MD [address] [facility], [facility] [address] [place] [address] 06/21/2025 10:30 AM EST Office Visit [facility] [address] [phone] Jessica Moore, SCHOOL BUS DRIVER/TEACHER ASSISTANT-DELIVERY AND INSTALLATION SUBCONTRACTOR [address] [address] documented as of this encounter Visit Diagnoses Not on filedocumented in this encounter Additional Health Concerns Assessment Noted Time PHQ-9 Depression Total Score: 23 025 11:53 AM EDT A fall risk assessment has been complete d for the patient 08/10/2024 11:53 AM EDT documented as of this encounter Care Teams Warehouse Person Relationship Specialty Start Date End Date Raquel Rayo MD [address] [place] [address] PCP - General 09/19/10 Courtney Mayfield MD [address] [facility], [facility] [address] [place] [address] Referring Physician Allergy and Immunology 02/12/24 documented as of this encounter
--- OUTSIDE RECORDS SUMMARY | 2025-02-03 08:55 | XMS_ITS | Encounter Summary ---
Author Organization [facility] Address [address] [place] [address] Phone Care Team Providers Care Driver Supervisor Name Role Phone Raquel Rayo MD Primary Care Provider Courtney Mayfield MD Unavailable [phone] Encounter Details Date Type Department Care Team (Late st Contact Info) Description 10/12/2024 Lab Requisition [facility] [address] [place] [address] [place] [address] [place] [address] Social History Tobacco Use Types [...] often do you attend chur ch or mandaeism services? More than 4 times per year 07/24/2024 Do you belong to any clubs o r organizations such as zoroastrianism groups, unions, fraternal or athletic groups, or [...] Recorded Patient Health Questionnaire-2 Score 0 09/12/2024 [facility] - Occupational [...] living in a chcf (including now)? No 07/24/2024 Sex and Gender [...] [facility] [address] [place] [address] Jodie Matthews MD [address] [place], [place] [phone] 02/14/2025 11:00 AM EDT Office Visit Isabela Morgan [address] [place] [address] Mina Betts MD MPH [address] [place] [phone] 02/17/2025 11:30 AM EDT Telemedicine [facility] [address] [place] [phone] Leonila Kern APRN-PRATIMA [address] [facility] Recovery Clinic, [facility] [address] [place] [address] 04/24/2025 2:45 PM EST Office Visit [facility] [address] [facility] [address] [place] [address] Courtney Mayfield MD [address] [facility], [address] [place] [address] 06/21/2025 10:30 AM EST Office Visit [facility] [address] [facility] [address] [place] [phone] Jessica Moore, ACCOUNT RECEIVABLE CLERK-FARMWORKER FRUIT [address] [facility] [address] [place], [place] [phone] documented as of this encounter Procedures Procedure Name Priority Date/Time Associated Diagnosis Comments CBC Routine 10/12/2024 4:18 AM EDT BASIC METABOLIC PANEL Routine 10/12/2024 4:18 AM EDT documented in this encounter Results * (ABNORMAL) CBC (10/12/2024 4:18 AM EDT) WBC 7.9 4.4 - 11.3 x10*3/uL LAB HEMATOLOGY METHOD 10/12/2024 7:24 AM EDT [facility] nRBC 0.0 0.0 - 0.0 /100 WBCs LAB HEMATOLOGY METHOD 10/12/2024 7:24 AM EDT [facility] RBC 4.18(L) 4.50 - 5.90 x10*6/uL LAB HEMATOLOGY METHOD 10/12/2024 7:24 AM EDT [facility] Hemoglobin 11.9(L) 13.5 - 17.5 g/dL LAB HEMATOLOGY METHOD 10/12/2024 7:24 AM EDT [facility] Hematocrit 36.2(L) 41.0 - 52.0 % LAB HEMATOLOGY METHOD 10/12/2024 7:24 AM EDT [facility] MCV 87 80 - 100 fL LAB HEMATOLOGY METHOD 10/12/2024 7:24 AM [facility] MCH 28.5 26.0 - 34.0 pg LAB HEMATOLOGY METHOD 10/12/2024 7:24 AM [facility] MCHC 32.9 32.0 - 36.0 g/dL LAB HEMATOLOGY METHOD 10/12/2024 7:24 AM [facility] RDW 14.2 11.5 - 14.5 % LAB HEMATOLOGY METHOD 10/12/2024 7:24 AM [facility] Platelets 199 150 - 450 x10*3/uL LAB HEMATOLOGY METHOD 10/12/2024 7:24 AM [facility] Blood Venous blood specimen / Unknown 10/12/2024 4:18 AM EDT 10/12/2024 5:37 AM EDT us Jayant Hunter MD LAB BLOOD ORDERABLES Final Result [facility] [address] [place] [address] * (ABNORMAL) Basic Metabolic Panel (10/12/2024 4:18 AM EDT) Glucose 83 74 - 99 mg/dL LAB CHEMISTRY METHOD 10/12/2024 7:39 AM [facility] Sodium 139 136 - 145 mmol/L LAB CHEMISTRY METHOD 10/12/2024 7:39 AM [facility] Potassium 3.9 3.5 - 5.3 mmol/L LAB CHEMISTRY METHOD 10/12/2024 7:39 AM [facility] Chloride 112(H) 98 - 107 mmol/L LAB CHEMISTRY METHOD 10/12/2024 7:39 AM [facility] Bicarbonate 22 21 - 32 mmol/L LAB CHEMISTRY METHOD 10/12/2024 7:39 AM [facility] Anion Gap 9(L) 10 - 20 mmol/L LAB CHEMISTRY METHOD 10/12/2024 7:39 AM [facility] Urea Nitrogen 16 6 - 23 mg/dL LAB CHEMISTRY METHOD 10/12/2024 7:39 AM EDT [facility] Creatinine 0.92 0.50 - 1.30 mg/dL LAB CHEMISTRY METHOD 10/12/2024 7:39 AM EDT [facility] eGFR >90 >60 mL/min/1. 73m*2 LAB CHEMISTRY METHOD 10/12/2024 7:39 AM EDT [facility] Comment: Calculations of estimated GFR are performed using the 2020 CKD-EPI Study Refit equation without the race variable for the IDMS-Traceable creatinine methods. https://jasn.asnjournals.org/content/early//ASN.8877441295 Calcium 7.7(L) 8.6 - 10.3 mg/dL LAB CHEMISTRY METHOD 10/12/2024 7:39 AM EDT [facility] Blood Venous blood specimen / Unknown 10/12/2024 4:18 AM EDT 10/12/2024 5:37 AM EDT us Jayant Hunter MD LAB BLOOD ORDERABLES Final Result [facility] [address] [place] [address] documented in this encounter Visit Diagnoses Not on filedocumented in this encounter Additional Health Concerns Assessment Noted Time PHQ-9 Depression Total Score: 23 025 11:53 AM EDT A fall risk assessment has been complete d for the patient 09/12/2024 2:25 PM EDT documented as of this encounter Care Teams Driver Supervisor Relationship Specialty Start Date End Date Raquel Rayo MD [address] [place] [address] [address] [place] [address] PCP - General 09/19/10 Courtney Mayfield MD [address] [place] [address], [address] [place] [address] Referring Physician Allergy and Immunology 02/12/24 documented as of this encounter
--- OUTSIDE RECORDS SUMMARY | 2025-02-03 08:55 | XMS_ITS | Encounter Summary ---
Author Organization [facility] Address [address] [place] [address] Phone Care Team Providers Care Lending Manager Name Role Phone Raquel Rayo MD Primary Care Provider Courtney Mayfield MD Unavailable [phone] Encounter Details Date Type Department Care Team (Late st Contact Info) Description 06/28/2024 Scanned Document [facility] [address] [place] [address] Courtney Mayfield MD 960 [facility], [facility] [address] [place] [phone] Social History Tobacco Use Types Packs/Day Years [...] your doctor or pharmacy? Sometimes 01/02/2024 [facility] Utilities Answer Date Recorded In [...] often do you attend chur ch or episcopalian services? More than 4 times per year [...] Recorded Patient Health Questionnaire-2 Score 4 04/07/2024 [facility] of Occupat ional Health - Occupational Stress [...] Description 02/08/2025 11:20 AM EDT Procedure Visit [facility] [address] [place] [phone] Jodie Matthews MD [address] [place] [address] 02/14/2025 11:00 AM EDT Office Visit Isabela Morgan [address] [place] [address] Mina Betts MD MPH [address] [place] [address] 02/17/2025 11:30 AM EDT Telemedicine [facility] [address] [place] [phone] Leonila Kern, LUIS-VAT CLEANER [address] [facility], [facility] [address] [place] [address] 04/24/2025 2:45 PM EST Office Visit [facility] [address] [facility] [address] [place] [address] Courtney Mayfield MD [address] [facility], [facility] [address] [place] [address] 06/21/2025 10:30 AM EST Office Visit [facility] [address] [phone] Jessica Moore, FIELD SERVICE MANAGER-VAT CLEANER [address] [address] documented as of this encounter Visit Diagnoses Not on filedocumented in this encounter Additional Health Concerns Assessment Noted Time PHQ-9 Depression Total Score: 15 024 3:06 PM EST A fall risk assessment has been complete d for the patient 10/08/2023 10:34 AM EDT documented as of this encounter Care Teams Lending Manager Relationship Specialty Start Date End Date Raquel Rayo MD [address] [place] [address] PCP - General 09/19/10 Courtney Mayfield MD [address] [facility], [facility] [address] [place] [address] Referring Physician Allergy and Immunology 02/12/24 documented as of this encounter
--- OUTSIDE RECORDS SUMMARY | 2025-02-03 08:55 | XMS_ITS | Encounter Summary ---
Author Organization [facility] Address [address] [place] [address] Phone Care Team Providers Care Sales Representative Trainee Name Role Phone Raquel Rayo MD Primary Care Provider Courtney Mayfield MD Unavailable [phone] Encounter Details Date Type Department Care Team (Late st Contact Info) Description 10/27/2024 Scanned Document [facility] [address] [place] [address] Courtney Mayfield MD [address] [facility], [facility] [address] [place] [phone] Social History Tobacco Use Types Packs/Day Years [...] Recorded Patient Health Questionnaire-2 Score 0 09/12/2024 [facility] of Occupat ional Health - Occupational Stress [...] were you homeless or living in a fci (including now)? No 07/24/2024 Sex and Gender [...] [facility] [address] [place] [phone] Jodie Matthews MD [address] [place], [place] [phone] 02/14/2025 11:00 AM EDT Office Visit Isabela Morgan [address] [place] [phone] Mina Betts MD MPH [address] [place] [phone] 02/17/2025 11:30 AM EDT Telemedicine [facility] Recovery [facility] [address] [place] [phone] Leonila Kern APRN-CNP [address] [facility], [address] [place] [address] 04/24/2025 2:45 PM EST Office Visit [facility] [address] [address] Courtney Mayfield MD [address] [facility], [address] [address] 06/21/2025 10:30 AM EST Office Visit [facility] [address] [phone] Jessica Moore, ASSEMBLY STOCK SUPERVISOR-IDENTIFICATION CLERK [address] [address] documented as of this encounter Visit Diagnoses Not on filedocumented in this encounter Additional Health Concerns Assessment Noted Time PHQ-9 Depression Total Score: 23 025 11:53 AM EDT A fall risk assessment has been complete d for the patient 09/12/2024 2:25 PM EDT documented as of this encounter Care Teams Sales Representative Trainee Relationship Specialty Start Date End Date Raquel Rayo MD [address] [place] [address] [place] [address] PCP - General 09/19/10 Courtney Mayfield MD [address] [facility], [facility] [address] [place] [address] Referring Physician Allergy and Immunology 02/12/24 documented as of this encounter
--- OUTSIDE RECORDS SUMMARY | 2025-02-03 08:55 | XMS_ITS | Encounter Summary ---
Author Organization [facility] Address [address] [place] [address] Phone Care Team Providers Care Welder Tack Name Role Phone Raquel Rayo MD Primary Care Provider [phone] Courtney Mayfield MD Unavailable [phone] Encounter Details Date Type Department Care Team (Late st Contact Info) Description 09/05/2024 Scanned Document [facility] [address] [place] [address] Courtney Mayfield MD 960 [facility], [facility] [address] [place] [phone] Social History Tobacco Use Types Packs/Day Years [...] from your doctor or pharmacy? Sometimes 01/02/2024 [facility] Utilities Answer Date Recorded In the [...] often do you attend chur ch or mormon services? More than 4 times per year [...] Patient Health Questionnaire-2 Score 6 08/10/2024 [facility] of Occupat ional Health - [...] Description 02/08/2025 11:20 AM EDT Procedure Visit [facility] [address] [place] [phone] Jodie Matthews MD [address] [place], [place] [phone] 02/14/2025 11:00 AM EDT Office Visit Isabela Morgan [address] [place] [address] Mina Betts MD MPH [address] [place] [address] 02/17/2025 11:30 AM EDT Telemedicine [facility] [address] [place] [address] Leonila Kern, LUIS-REMOTE SENSING TECHNOLOGIST [address] [facility], [facility] [address] [place] [address] 04/24/2025 2:45 PM EST Office Visit [facility] [address] [facility] [address] [place] [address] Courtney Mayfield MD [address] [facility], [facility] [address] [place] [address] 06/21/2025 10:30 AM EST Office Visit [facility] [address] [phone] Jessica Moore, ADOBE DEVELOPER-REMOTE SENSING TECHNOLOGIST [address] [address] documented as of this encounter Visit Diagnoses Not on filedocumented in this encounter Additional Health Concerns Assessment Noted Time PHQ-9 Depression Total Score: 23 025 11:53 AM EDT A fall risk assessment has been complete d for the patient 08/10/2024 11:53 AM EDT documented as of this encounter Care Teams Welder Tack Relationship Specialty Start Date End Date Raquel Rayo MD [address] [place] [address] PCP - General 09/19/10 Courtney Mayfield MD [address] [facility], [facility] [address] [place] [address] Referring Physician Allergy and Immunology 02/12/24 documented as of this encounter
--- OUTSIDE RECORDS SUMMARY | 2025-02-03 08:55 | XMS_ITS | Encounter Summary ---
Author Organization [facility] Address [address] [place] [address] Phone Care Team Providers Care Template Maker Name Role Phone Raquel Rayo MD Primary Care Provider [phone] Courtney Mayfield MD Unavailable [phone] Encounter Details Date Type Department Care Team (Late st Contact Info) Description 09/06/2024 Scanned Document [facility] [address] [place] [address] Courtney Mayfield MD 960 [facility], [facility] [address] [place] [phone] Social History Tobacco Use Types Packs/Day Years [...] doctor or pharmacy? Sometimes 01/02/[address] [facility] Utilities Answer Date Recorded In the [...] often do you attend chur ch or moravian services? More than 4 times [...] Patient Health Questionnaire-2 Score 6 08/10/2024 [facility] of Occupat ional Health - Occupational Stress [...] any time in the past 12 m [facility], were you homeless or living [...] [facility] [address] [place] [address] Jodie Matthews MD [address] [place], [place] [phone] 02/14/2025 11:00 AM EDT Office Visit Isabela Morgan [address] [place] [address] Mina Betts MD MPH [address] [place] [address] 02/17/2025 11:30 AM EDT Telemedicine [facility] Recovery [facility] [address] [place] [address] Leonila Kern, LUIS-LAUNDRY AID [address] [facility], [facility] [address] [place] [address] 04/24/2025 2:45 PM EST Office Visit [facility] [address] [facility] [address] [place] [address] Courtney Mayfield MD [address] [facility], [facility] [address] [place] [address] 06/21/2025 10:30 AM EST Office Visit [facility] [address] [phone] Jessica Moore, PATROL DRIVER-LAUNDRY AID [address] [address] documented as of this encounter Visit Diagnoses Not on filedocumented in this encounter Additional Health Concerns Assessment Noted Time PHQ-9 Depression Total Score: 23 025 11:53 AM EDT A fall risk assessment has been complete d for the patient 08/10/2024 11:53 AM EDT documented as of this encounter Care Teams Template Maker Relationship Specialty Start Date End Date Raquel Rayo MD [address] [place] [address] PCP - General 09/19/10 Courtney Mayfield MD [address] [facility], [facility] [address] [place] [address] Referring Physician Allergy and Immunology 02/12/24 documented as of this encounter
--- OUTSIDE RECORDS SUMMARY | 2025-02-03 08:55 | XMS_ITS | Encounter Summary ---
Author Organization [facility] Address [address] [place] [address] Phone Care Team Providers Care Picture Enlarger Name Role Phone Raquel Rayo MD Primary Care Provider [phone] Courtney Mayfield MD Unavailable [phone] Reason for Visit * Reason Comments Med Refill Encounter Details Date Type Department Care Team (Late st Contact Info) Description 08/11/2024 Refill [facility] [address] [place] [address] Jodie Matthews MD [address] [place] [address] Chronic migraine without aura without [...] pharmacy? Sometimes 01/02/2024 [facility] Utilities Answer Date Recorded In [...] any clubs o r organizations such as jew groups, unions, fraternal or athletic groups, or [...] Recorded Patient Health Questionnaire-2 Score 6 08/10/2024 [facility] of Occupat ional Health - [...] were you homeless or living in a care home (including now)? No 07/24/2024 Sex and Gender Information Value Date Recorded Sex Assigned at Not on file Legal Sex Male 11:51 PM EST Gender Identity Not on file Sexual Orientation Not on file documented as of this encounter Plan of Treatment Upcoming Encounters Date Type Department Care Team (Late st Contact Info) Description 02/08/2025 11:20 AM EDT Procedure Visit [facility] [address] [place] [phone] Jodie Matthews MD [address] [place], [place] [phone] 02/14/2025 11:00 AM EDT Office Visit Isabela Morgan [address] [place] [phone] Mina Betts MD MPH [address] [place] [phone] 02/17/2025 11:30 AM EDT Telemedicine [facility] Recovery [facility] [address] [place] [phone] Leonila Kern APRN-PRATIMA [address] [facility], [facility] [address] [place] [address] 04/24/2025 2:45 PM EST Office Visit [facility] [address] [address] Courtney Mayfield MD [address] [facility], [facility] [address] [place] [address] 06/21/2025 10:30 AM EST Office Visit [facility] [address] [phone] Jessica Moore, CLAY ARTISAN-TEXTURING MACHINE FIXER [address] [address] documented as of this encounter Visit Diagnoses Diagnosis Chronic migraine without aura without status migrainosus, not intractable documented in this encounter Additional Health Concerns Assessment Noted Time PHQ-9 Depression Total Score: 23 025 11:53 AM EDT A fall risk assessment has been complete d for the patient 08/10/2024 11:53 AM EDT documented as of this encounter Care Teams Picture Enlarger Relationship Specialty Start Date End Date Raquel Rayo MD [address] [place] [address] [place] [address] PCP - General 09/19/10 Courtney Mayfield MD [address] [facility], [address] [address] Referring Physician Allergy and Immunology 02/12/24 documented as of this encounter
--- OUTSIDE RECORDS SUMMARY | 2025-02-03 08:55 | XMS_ITS | Encounter Summary ---
Author Organization [facility] Address [address] [facility], [address] [place] [address] Care Team Providers Care Anchor Operator Name Role Phone Raquel Rayo MD Primary Care Provider [phone] Reason for Visit * Reason Comments Medication Refill Encounter Details Date Type Department Care Team (Late st Contact Info) Description 07/15/2020 Refill [facility] [address] [place] [phone] Bertram Peters, STROKE BELT SANDER OPERATOR - UTILIZATION MANAGEMENT NURSE [address] [place] [address] Medication Refill Social History Tobacco [...] documented as of this encounter Care Teams Anchor Operator Relationship Specialty Start Date End Date Raquel Rayo MD PCP - General Family Medicine 11/21/19 documented as of this encounter
== END 2025-02-03 08:45 | disposition home or self-care (01) ==
LOC: LAB 08:48
PROVIDERS: PCP Family Medicine; Visit Provider Family Medicine
DX: G89.29 Other chronic pain (principal); M54.9 Dorsalgia, unspecified
CPT/HCPCS: 87086

== ENCOUNTER 2025-02-10 13:09 | Outpatient (OUT) | payer MEDICARE, SELFPAY ==
--- OUTSIDE RECORDS SUMMARY | 2025-02-09 09:50 | XMS_ITS | Continuity of Care Document ---
Author Organization [facility] Address [address] [place] [address] Phone Care Team Providers Care Atmospheric Chemist Name Role Phone Raquel Rayo MD Primary Care Provider Raquel Rayo MD Attending Provider [phone] Justyn Elmore DO Emergency Provider [phone] Mari Laureano CMA Attending Provider [facility] Ruth Ngo GLASS ETCHER-C Attending Provider Raquel Rayo MD Referring Provider [phone] Ramesh Tiwari II, MD Attending Provider Courtney Mayfield MD Attending Provider Ezio Loyd DO Emergency Provider Luz Leos MD Admit Provider [phone] Luz Leos MD Attending Provider Jacki Goodwin MD Emergency Provider Care Teams Patient Care Team Team Status: Active Member Role Status Dates Raquel Rayo MD Primary Care Provider Active Visit Care Team Team Status: Inactive Member Role Status Dates Raquel Rayo MD Primary Care Provider Active Start: November 16, 2024 End: November 16, 2024 Raquel Rayo MD Attending Provider Active St art: November 16, 2024 End: November 16, 2024 Visit Care Team Team Status: Inactive Member Role Status Dates Raquel Rayo MD Primary Care Provider Active Start: November 26, 2024 End: November 26, 2024 Justyn Elmore DO Emergency Provider Active S tart: November 26, 2024 End: November 26, 2024 Visit Care Team Team Status: Active Member Role Status Dates Raquel Rayo MD Primary Care Provider Active Start: November 28, 2024 Mari Laureano CMA Attending Provider Active Start: November 28, 2024 Visit Care Team Team Status: Inactive Member Role Status Dates Raquel Rayo MD Primary Care Provider Active Start: November 29, 2024 End: November 29, 2024 GREYSON Delacruz Attending Provider Active Start: November 29, 2024 End: November 29, 2024 Visit Care Team Team Status: Inactive Member Role Status Dates Raquel Rayo MD Primary Care Provider Active Start: December 06, 2024 End: December 06, 2024 Raquel Rayo MD Attending Provider Active St art: December 06, 2024 End: December 06, 2024 Visit Care Team Team Status: Active Member Role Status Dates Raquel Rayo MD Primary Care Provider Active Start: December 22, 2024 Raquel Rayo MD Referring Provider Active St art: December 22, 2024 GREYSON Delacruz Attending Provider Active Start: December 22, 2024 Visit Care Team Team Status: Inactive Member Role Status Dates Raquel Rayo MD Primary Care Provider Active Start: December 28, 2024 End: December 28, 2024 Raquel Rayo MD Attending Provider Active St art: December 28, 2024 End: December 28, 2024 Visit Care Team Team Status: Inactive Member Role Status Dates Raquel Rayo MD Primary Care Provider Active Start: December 30, 2024 End: December 30, 2024 Ramesh Tiwari II, MD Attending Provider Active Start: December 30, 2024 End: December 30, 2024 Visit Care Team Team Status: Active Member Role Status Dates Raquel Rayo MD Primary Care Provider Active Start: January 04, 2025 Courtney Mayfield MD Attending Provider Active Start: January 04, 2025 Visit Care Team Team Status: Inactive Member Role Status Raul Rayo MD Primary Care Provider Active Start: January 05, 2025 End: January 05, 2025 Raquel Rayo MD Attending Provider Active St art: January 05, 2025 End: January 05, 2025 Visit Care Team Team Status: Inactive Member Role Status Dates Raquel Rayo MD Primary Care Provider Active Start: January 26, 2025 End: January 26, 2025 Ramesh Tiwari II, MD Attending Provider Active Start: January 26, 2025 End: January 26, 2025 Visit Care Team Team Status: Inactive Member Role Status Dates Raquel Rayo MD Primary Care Provider Active Start: February 03, 2025 End: February 03, 2025 Raquel Rayo MD Attending Provider Active St art: February 03, 2025 End: February 03, 2025 Visit Care Team Team Status: Inactive Member Role Status Dates Ezio Loyd DO Emergency Provider Active St art: February 03, 2025 End: February 04, 2025 Raquel Rayo MD Primary Care Provider Active Start: February 03, 2025 End: February 04, 2025 Luz Leos MD Admit Provider Active Start : February 03, 2025 End: February 04, 2025 Luz Leos MD Attending Provider Active S tart: February 03, 2025 End: February 04, 2025 Visit Care Team Team Status: Inactive Member Role Status Dates Raquel Rayo MD Primary Care Provider Active Start: February 05, 2025 End: February 05, 2025 Jacki Goodwin MD Emergency Provider Active Start: February 05, 2025 End: February 05, 2025 Patient Care Team Team Status: Active Member Role Status Dates Raquel Rayo MD Primary Care Provider Active Start: February 06, 2025 Mari Laureano CMA Attending Provider Active Start: February 06, 2025 Patient Care Team Team Status: Inactive Member Role Status Dates Raquel Rayo MD Primary Care Provider Active Start: February 09, 2025 End: February 09, 2025 Raquel Rayo MD Attending Provider Active St art: February 09, 2025 End: February 09, 2025 Chief Complaint and Reason for Visit Chief Complaint Admit Date [facility] November 16, 2024 10:5 9am fall-left hip-rt knee pain November 26 12:01pm Amb Documentation November 28, 2024 9:32 am Follow Up 6 Months November 29, 2024 3:00 pm [facility]; fallDecember 06, 2024 10: 54am Anemia December 22, 2024 1: 20pm B12 shot December 28, 2024 11 :27am OP SP INCREASED RT KNEE PAIN December 9:12am R55 January 05, 2025 12:33pm LONG KNEE ZILRETTA INJ January 26 10:40am Unknown February 03, 2025 8: 53am Weakness February 03, 2025 2: 22pm dizzy, confusion February 05, 2025 8: 42am Amb Documentation February 06, 2025 10 :49am Syncope February 09, 2025 1: 02pm Reason for Visit Admit Date Hypertension November 16, 2024 10:5 9am Hypokalemia November 16, 2024 10:5 9am Hypotension November 16, 2024 10:5 9am RTA (renal tubular acidosis) November 16, 2024 10:59am Syncope November 16, 2024 10:5 9am 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) November 29, 2024 3:00pm Closed head injury December 06, 2024 10: 54am Hypertension December 06, 2024 10: 54am Hypomagnesemia December 06, 2024 10: 54am Moderate episode of recurrent major depr essive disorder December 06, 2024 10:54am 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) December 22, 2024 1:20pm Pernicious anemia December 28, 2024 11 :27am Bilateral primary osteoarthritis of knee December 30, 2024 9:12am Bilateral primary osteoarthritis of knee January 26, 2025 10:40am Acute UTI February 03, 2025 2: 22pm Hypotension February 03, 2025 2: 22pm Syncope February 03, 2025 2: 22pm Syncope and collapse February 03, 2025 2 :22pm Reason for Referral Referring Provider Name Referring Provider Address Referring Provider Phone Referral Date Requested Appointment Date Referral Reason Luz Dafne [address] [place] [address] Work Phone: Follow-up with your Primary Care Provider, call office to reschedule if needed. November 29, 2024 D50. 0 - 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c),R97. 20 - Elevated prostate specific antigen [PSA] Health Concerns Concerns A [facility] screening has identified you as FRAIL or AT RISK FOR FRAILTY. This puts you at a higher risk for infection, illness, falls, and other injuries. Here are four ways to help you reduce your risk of frailty: 1. IDENTIFY EARLY SIGNS OF FRAILTY Discuss contributing factors and concerns with your doctor 2. BE ACTIVE Walking and light strengthening exercises will help reduce weakness 3. EAT WELL Aim for three healthy meals a day that are high in protein 4. THINK POSITIVE Keep your mind active by being sociable and continuing to learn References: Stay Strong: Four Ways to Beat the Frailty Risk [email or web address] [email or web address]-alnf-[email or web address]-fra ilty-risk Allergies, Adverse Reactions, Alerts Allergen Type Severity Reaction Last Updated Verified Status Comments avocado Allergy Unknown Swelling February 09, 2025 1:07pm Yes Active baclofen Allergy Unknown Weakness, anaphylaxis February 09, 2025 1:07pm Yes Active candesartan Allergy Unknown Unknown Reaction February 09, 2025 1:07pm Yes Active cefdinir Allergy Unknown Unknown Reaction February 09, 2025 1:07pm Yes Active Onset Date: 01/11/2020 chocolate flavor Allergy Unknown Headache February 09, 2025 1:07pm Yes Active ciprofloxacin Allergy Unknown Rash February 09, 2025 1:07pm Yes Active diazepam Allergy Unknown Unknown Reaction, depression February 09, 2025 1:07pm Yes Active diltiazem Allergy Unknown Unknown Reaction February 09, 2025 1:07pm Yes Active grass pollen Allergy Unknown Unknown Reaction February 09, 2025 1:07pm Yes Active indomethacin Allergy Unknown Hypotension, hives February 09, 2025 1:07pm Yes Active iodine Allergy Unknown Hives February 09, 2025 1:07pm Yes Active monosodium glutamate Allergy Unknown Hives February 09, 2025 1:07pm Yes Active penicillin G benzathine Allergy Unknown Hives February 09, 2025 1:07pm Yes Active penicillin V Allergy Unknown rash February 09, 2025 1:07pm Yes Active propranolol Allergy Unknown Hypotension February 09, 2025 1:07pm Yes Active Sulfa (Sulfonamide Antibiotics) Allergy Unknown Unknown Reaction February 09, 2025 1:07pm Yes Active Penicillins Adverse Reaction Unknown Rash February 09, 2025 1:07pm Yes Active Social History Smoking Status Status Start Date End Date Date of Observa tion Never smoked tobacco (finding) February 05, 2025 11:31am Observation Status Observation Response Date of Response Legal Sex Male (finding) Sex Assigned At Male 1960 Social History Assessments Assessment Value Date Recorded SDOH Follow up February 04 1:16pm Question Answer Date Recorded Has the SDOH screening changed since admission? N February 04, 2025 1:16pm Family History Relationship Condition Age at Onset Recorded Date/T patrick Not Specified No pertinent family history Unknown brother History of malignant neoplasm of prostate Unknown Malignant neoplasm Unknown father History of malignant neoplasm of prostate Unknown Heart disease Unknown Malignant neoplasm Unknown mother Hypertension Unknown Chronic obstructive pulmonary disease Unk nown Heart disease Unknown Problems Active Problems Medical Problem Onset Date Status KRISTA (acute kidney injury) Unknown Active History of DVT (deep vein thrombosis) Unknown Active Post-COVID syndrome Unknown Active Encounter for immunization Unknown Activ e Bilateral primary osteoarthritis of knee Unknown Active Fatigue Unknown Active Arthralgia Unknown Active Shortness of breath Unknown Active Light-headedness Unknown Active Iron deficiency anemia secondary to blood loss ( chronic) Unknown Active Iron deficiency anemia secondary to blood loss ( chronic) Unknown Active RTA (renal tubular acidosis) Unknown Act [place] Pernicious anemia Unknown Active Closed head injury Unknown Active Wellness examination Unknown Active Headache Unknown Active Migraines Unknown Active Left leg pain Unknown Active Loss of consciousness Unknown Active Syncope Unknown Active Syncope and collapse Unknown Active Elevated troponin Unknown Active Moderate episode of recurrent major depressive d isorder Unknown Active Chronic back pain Unknown Active Left ankle pain Unknown Active Acute UTI Unknown Active COPD exacerbation Unknown Active Bronchitis Unknown Active Hypertension Unknown Active Hypotension Unknown Active Asthma Unknown Active Acute febrile illness Unknown Active Arthritis of left ankle Unknown Active Contusion of hip, left Unknown Active Hypokalemia Unknown Active Hypomagnesemia Unknown Active Inactive/Resolved Problems Medical Problem Onset Date Status Accidental fall from bed Unknown Resolve d Laceration Unknown Resolved CHI (closed head injury) Unknown Resolve d Closed head injury Unknown Resolved Visit for suture removal Unknown Resolve d Chest wall contusion Unknown Resolved Contusion of hip, left Unknown Resolved Contusion of knee, right Unknown Resolve d Medications Medication Status Dose Units Route Directions Qty Days St art Date Stop Date End Date Instructions Adherence Spironolact one 50 mg tablet Discont inued 0 .ROUTE .COMPLEX 90 August 11, 2023 2:52pm Octob er 2023 8:34a m TAKE 1 TABLET BY MOUTH EVERY DAY Venlafaxine 225 mg tablet extended release 24hr Discont inued 225 MG PO Daily August 20, 2023 4:11pm October 09, 2023 9:11a m Meclizine 25 mg tablet Discont inued 25 MG PO Twice daily as needed for dizziness September 17, 2023 12:00a m Octob er 2024 12:23 pm Potassium Chloride (Klor-Con M20) 20 mEq tablet,ER particles/c rystals Discont inued 0 .ROUTE .COMPLEX 180 November 16, 2023 9:55am May[place] 2024 1:42p m TAKE 1 TABLET BY MOUTH TWICE A DAY WITH FOOD Atorvastati n 40 mg tablet Discont inued 0 .ROUTE .COMPLEX 90 December 18, 2023 7:53am November 23, 2024 2:11p m TAKE 1 TABLET BY MOUTH EVERY DAY Spironolact one 50 mg tablet Discont inued 0 .ROUTE .COMPLEX 90 Febobe r 2023 8:25am Mayua 2024 10:54 am TAKE 1 TABLET BY MOUTH EVERY DAY Losartan 100 mg tablet Discont inued 0 .ROUTE .COMPLEX 90 Febobe r 2023 8:25am August 29, 2024 12:21 pm TAKE 1 TABLET BY MOUTH EVERY DAY Potassium Chloride (Klor-Con M20) 20 mEq tablet,ER particles/c rystals Discont inued 0 .ROUTE .COMPLEX 180 2024 1:42pm October 24, 2024 3:41p m TAKE 1 TABLET BY MOUTH TWICE A DAY WITH FOOD Spironolact one 50 mg tablet Discont inued 0 .ROUTE .COMPLEX 90 2024 10:54a m November 16, 2024 11:11 am TAKE 1 TABLET BY MOUTH EVERY DAY Losartan 100 mg tablet Discont inued 0 .ROUTE .COMPLEX 90 August 29, 2024 12:21p m November 10, 2024 12:04 pm TAKE 1 TABLET BY MOUTH EVERY DAY Potassium Chloride (Klor-Con M20) 20 mEq tablet,ER particles/c rystals Discont inued 0 .ROUTE .COMPLEX 180 October 24, 2024 3:40pm Octob er 2024 2:09p m TAKE 1 TABLET BY MOUTH TWICE A DAY WITH FOOD Atorvastati n 40 mg tablet Discont inued 0 .ROUTE .COMPLEX 90 November 23, 2024 2:11pm Octob er 2024 2:09p m TAKE 1 TABLET BY MOUTH EVERY DAY Meclizine 12.5 mg tablet Active 12.5 MG PO Daily as needed for dizziness Octobe r 2024 12:00a m Complies with drug therapy Hydrocodone -Acetaminop hen 5-325 mg tablet Active 1 TAB PO Three times daily as needed for pain Octobe r 2024 12:00a m Complies with drug therapy Verapamil 120 mg tablet Active 120 MG PO Bedtime Octobe r 2024 12:00a m Complies with drug therapy Amitriptyli ne 75 mg tablet Discont inued 25 MG PO Daily at bedtime July 29, 2021 12:00a m Febru 2023 3:32p m Celecoxib 200 mg capsule Discont inued 400 MG PO Twice daily July 29, 2021 12:00a m July 30, 2021 9:27a m Rizatriptan 10 mg tablet Discont inued 10 MG PO Q2H as needed for Headache July 29, 2021 12:00a m July 30, 2021 9:27a m Venlafaxine 150 mg capsule,ext ended release 24hr Discont inued 75 MG PO Twice daily July 29, 2021 12:00a m [facility] [[email or web address]] 2023 3:36p m Spironolact one 25 mg tablet Discont inued 25 MG PO Daily July 29, 2021 12:00a m [facility] [[email or web address]] 2023 3:37p m Verapamil 120 mg tablet Discont inued 120 MG PO Daily July 29, 2021 12:00a m November 10, 2024 12:06 pm Losartan 25 mg tablet Discont inued 25 MG PO Daily July 29, 2021 12:00a m Digna ziegler 2021 1:51p m Omeprazole 20 mg Capsule,Del ayed Release(Dr/ Ec) Discont inued 20 MG PO Twice daily July 29, 2021 12:00a m [facility] [[email or web address]] 2023 3:38p m Topiramate 100 mg tablet Discont inued 100 MG PO Twice daily July 29, 2021 12:00a m July 30, 2021 9:28a m Fluticasone Propionate 50 mcg/actuati on spray,suspe nsion Discont inued 50 MCG INTRAN VIVIANE Daily July 29, 2021 12:00a m [facility] [[email or web address]] 2023 3:38p m Pregabalin 75 mg capsule Discont inued 75 MG PO Twice daily July 29, 2021 12:00a m [facility] 2021 2:00p m Potassium Chloride (Klor-Con M20) 20 mEq Tablet,Er Particles/C rystals Discont inued 20 MEQ PO Four times daily July 29, 2021 12:00a m [facility] [[email or web address]] 2023 3:38p m Tamsulosin 0.4 mg capsule Discont inued 0.8 MG PO Daily at bedtime July 29, 2021 12:00a m [facility] [[email or web address]] 2023 3:38p m Budesonide 0.5 mg/2 mL suspension for nebulizatio n Discont inued MG July 29, 2021 12:00a m July 29, 2021 10:31 am Budesonide 0.5 mg/2 mL suspension for nebulizatio n Discont inued 0.5 MG INHALA TION Twice daily July 29, 2021 12:00a m [facility] [[email or web address]] 2023 3:38p m Amitriptyli ne 75 mg tablet Discont inued MG July 29, 2021 12:00a m July 29, 2021 11:27 am Alprazolam 0.25 mg tablet Discont inued 40 MG PO Twice daily as needed for Anxiety July 29, 2021 12:00a m [facility] [[email or web address]] 2023 3:38p m Immune Globul G-Gly-Iga Avg 46 (Gamunex-C) 20 gram/200 mL (10 %) solution Discont inued ML July 29, 2021 12:00a m [facility] 2021 2:01p m Benralizuma b (Fasenra) 30 mg/mL syringe Discont inued 30 MG SUBCUT As Directed July 29, 2021 12:00a m Janua 2023 12:29 pm Erenumab-Ao oe (Aimovig Autoinjecto r) 140 mg/mL auto-inject or Discont inued 140 MG SUBCUT As Directed July 29, 2021 12:00a m [facility] [[email or web address]] 2023 3:38p m next dose due 08/02 Hydrocodone -Acetaminop hen 5-325 mg tablet Discont inued 1 TAB PO Three times daily as needed for Pain July 29, 2021 12:00a m [facility]2021 2:01p m Aspirin 81 mg Tablet,Chew able Discont inued 81 MG PO Daily July 29, 2021 12:00a m [facility] 2021 2:01p m Montelukast (Singulair) 10 mg Tablet Discont inued 10 MG PO Daily July 29, 2021 12:00a m July 28, 2023 1:27p m Topiramate 200 mg tablet Discont inued 100 MG PO As Directed July 29, 2021 12:00a m Febru eduardo 2023 3:38p m 2 in am, 1 at noon, 2 in evening, 1 at bedtime Levalbutero l Hcl (Xopenex) 1.25 mg/3 mL Solution For Nebulizatio n Discont inued 1.25 MG INHALA TION Q4H as needed for Dyspnea July 29, 2021 12:00a m [facility] 2021 2:01p m Sumatriptan Succinate 6 mg/0.5 mL pen injector Discont inued 6 MG SUBCUT Daily as needed for Migraine Headache July 29, 2021 12:00a m [facility] 2021 2:00p m Levalbutero l Tartrate (Xopenex Hfa) 45 mcg/actuati on Hfa Aerosol Inhaler Discont inued 2 INH INHALA TION Q4H as needed for Dyspnea July 29, 2021 12:00a m [facility] 2021 2:00p m Mecobalamin (Vitamin B12) (B12 Active) 1,000 mcg Tablet,Chew able Discont inued 1000 MCG PO Daily July 29, 2021 12:00a m [facility]2021 2:01p m Fluticasone -Umeclidin- Vilanter (Trelegy Ellipta) 200-62.5-25 mcg Blister With Device Discont inued 1 INH INHALA TION Daily July 29, 2021 12:00a m [facility] 2021 2:00p m Celecoxib 200 mg capsule Discont inued 200 MG PO Daily July 30, 2021 9:26am Febru 2023 3:31p m Doxycycline Hyclate 100 mg tablet Discont inued 100 MG PO Twice daily 10 July 30, 2021 12:00a m [facility] 2021 2:01p m Potassium Chloride (Klor-Con M20) 20 mEq tablet,ER particles/c rystals Discont inued 20 MEQ PO Twice daily 2023 3:33pm November 16, 2023 9:55a m Omeprazole 20 mg capsule,del ayed release(DR/ EC) Discont inued 20 MG PO Daily 2023 3:35pm Octob er 2024 12:29 pm Topiramate 200 mg tablet Discont inued 200 MG PO As Directed 2023 3:36pm November 08, 2024 1:28p m Topiramate 200 mg tablet Discont inued 200 MG PO Twice daily November 08, 2024 1:14pm November 10, 2024 12:06 pm Primidone 50 mg Tablet Discont inued 50 MG PO As Directed 2021 12:00a m [facility] 2021 10:10 am 50mg at noon, 250mg at dinner Clonidine Hcl 0.1 mg Tablet Discont inued 0.1 MG PO Twice daily 2021 12:00a m [facility] 2021 10:08 am Atorvastati n 40 mg tablet Discont inued 40 MG PO Daily 2021 12:00a m Augus t 2023 7:53a m Rizatriptan 10 mg tablet Discont inued 10 MG PO As Directed 2021 12:00a m July 07, 2024 11:45 am Amlodipine 5 mg Tablet Discont inued 5 MG PO Daily 2021 12:00a m [facility] 2021 10:07 am Losartan 25 mg tablet Discont inued 100 MG PO Daily 2021 12:00a m Febru 2023 3:38p m Docusate Sodium 100 mg Capsule Discont inued 100 MG PO Twice daily as needed for Constipatio n 2021 12:00a m [facility]2023 3:38p m Gabapentin 300 mg Capsule Discont inued 600 MG PO Four times daily 2021 12:00a m [facility] 2021 10:09 am Metoprolol Succinate (Toprol Xl) 25 mg Tablet Extended Release 24 Hr Discont inued 25 MG PO Daily 2021 12:00a m [facility]2023 3:38p m Albuterol Sulfate (Proair Hfa) 90 mcg/actuati on Hfa Aerosol Inhaler Discont inued 2 PUFF INHALA TION Q4H as needed for breathing 2021 12:00a m 2023 3:38p m Umeclidiniu m (Incruse Ellipta) 62.5 mcg/actuati on Blister With Device Discont inued 1 INH INHALA TION Daily 2021 12:00a m [facility] [[email or web address]] 2023 3:38p m Folic Acid 1 mg Tablet Discont inued 1 MG PO Daily 2021 12:00a m [facility] 2021 11:18 am Folic Acid 1 mg Tablet Discont inued 1 MG PO Daily 2021 11:18a m July 17, 2022 9:20a m Pregabalin (Lyrica) 100 mg Capsule Discont inued 100 MG PO Twice daily [facility] 2021 1:00am 2023 12:30 pm Folic Acid 1 mg Tablet Discont inued 1 MG PO Daily July 17, 2022 9:20am July 07, 2024 11:41 am Pregabalin (Lyrica) 100 mg capsule Discont inued 100 MG PO Three times daily 2023 12:30p m Febr2023 3:38p m Losartan 25 mg tablet Discont inued 50 MG PO Daily 2023 3:34pm November 10, 2023 12:04 pm Pregabalin (Lyrica) 100 mg capsule Active 100 MG PO Twice daily Februa ry 2023 3:34pm Complies with drug therapy Amlodipine 5 mg tablet Active 5 MG PO Daily Octobe r 2024 12:00a m Complies with drug therapy Omeprazole 40 mg capsule,del ayed release(DR/ EC) Active 40 MG PO Twice daily Octobe r 2024 12:00a m Complies with drug therapy Aspirin 81 mg tablet,estrellita yed release (DR/EC) Active 162 MG PO Daily Octobe r 2024 12:00a m Complies with drug therapy Verapamil 120 mg tablet Discont inued 120 MG PO Every evening Octobe r 2024 12:00a m Octob er 2024 2:08p m Topiramate 100 mg tablet Active 100 MG PO Twice daily Octobe r 2024 12:00a m Complies with drug therapy Topiramate 50 mg tablet Active 50 MG PO Every evening Octobe r 2024 12:00a m Complies with drug therapy Atorvastati n 40 mg tablet Active 40 MG PO Daily Octobe r 2024 12:00a m Complies with drug therapy Potassium Chloride (Klor-Con M20) 20 mEq tablet,ER particles/c rystals Active 20 MEQ PO Twice daily with meals Octobe r 2024 12:00a m Complies with drug therapy Cefpodoxime 100 mg tablet Active 100 MG PO Twice daily 10 5 Octobe r 2024 12:00a m must administer with a meal/food Complies with drug therapy Tezepelumab -Ekko (Tezspire) 210 mg/1.91 mL (110 mg/mL) pen injector Active 210 MG SUBCUT EVERY 4 WEEKS December 02, 2023 12:00a m Complies with drug therapy Clotrimazol e 10 mg hermelindo Discont inued 10 MG PO Five times daily December 02, 2023 12:00a m July 07, 2024 11:41 am Prednisone 20 mg tablet Discont inued 20 MG PO Twice daily 10 Octobe r 2023 12:00a m July 07, 2024 11:45 am Sumatriptan Succinate 6 mg/0.5 mL pen injector Active 6 MG SUBCUT As Directed as needed for migraine headache Januar y th, 2025 1:00am Complies with drug therapy Galcanezuma b-Gnlm (Emgality Pen) 120 mg/mL pen injector Discont inued MG SUBCUT 2024 1:00am July 07, 2024 11:47 am Venlafaxine 150 mg capsule,ext ended release 24hr Active 150 MG PO Daily 2024 1:00am Complies with drug therapy Ketorolac 10 mg tablet Discont inued MG PO 2024 1:00am November 10, 2024 12:06 pm Oxycodone 5 mg tablet Discont inued 5 MG PO Twice daily as needed 2024 1:00am July 07, 2024 11:47 am Galcanezuma b-Gnlm (Emgality Pen) 120 mg/mL pen injector Active 120 MG SUBCUT Q28D July 07, 2024 11:41a m Complies with drug therapy Oxycodone 5 mg tablet Discont inued 5 MG PO Three times daily as needed July 07, 2024 11:44a m November 16, 2024 11:19 am Verapamil 120 mg tablet Discont inued 120 MG PO Daily at bedtime November 16, 2024 12:00a m November 16, 2024 11:26 am Cefpodoxime 100 mg tablet Discont inued 100 MG PO Twice daily Octobe r 2024 12:00a m Octob er 2024 1:20p m must administer with a meal/food Amitriptyli ne 100 mg tablet Active 100 MG PO Every evening 2023 1:00am Complies with drug therapy Biotin 10,000 mcg tablet,disi ntegrating Discont inued 56633 MCG PO As Directed 2023 1:00am November 16, 2024 11:12 am Onabotulinu mtoxina 200 unit recon soln Discont inued 200 UNIT INTRAD EMERITA As Directed 2023 1:00am July 07, 2024 11:44 am Budesonide- Glycopyr-Fo rmoterol 160-9-4.8 mcg/actuati on HFA aerosol inhaler Active 2 PUFF INHALA TION Twice daily Febr2023 1:00am Complies with drug therapy Celecoxib 200 mg capsule Discont inued 400 MG PO Twice daily 2023 3:26pm November 10, 2024 12:08 pm Cyclobenzap rine 10 mg tablet Discont inued 10 MG PO Daily at bedtime 2023 1:00am November 08, 2024 1:26p m Immune Globul G-Gly-Iga Avg 46 (Gamunex-C) 40 gram/400 mL (10 %) solution Discont inued SUBCUT [facility]2023 1:00am Octob er 2024 12:22 pm Hydrocodone -Acetaminop hen 5-325 mg tablet Discont inued 1 TAB PO Every 6 hours as needed 2023 1:00am [facility] 2024 2:17p m Levalbutero l Tartrate 45 mcg/actuati on HFA aerosol inhaler Discont inued 1 PUFF INHALA TION Every 6 hours as needed for shortness of breath 2023 1:00am Octob er 2024 12:22 pm Methenamine Hippurate 1 gram tablet Active 1 GM PO Twice daily 2023 1:00am Complies with drug therapy Venlafaxine 225 mg tablet extended release 24hr Discont inued 225 MG PO Daily 2023 1:00am August 20, 2023 4:11p m Spironolact one 50 mg tablet Discont inued 50 MG PO Daily 2023 1:00am August 11, 2023 2:52p m Mecobalamin (Vitamin B12) 1,000 mcg lozenge Discont inued 1000 MCG PO Daily 2023 1:00am November 16, 2024 11:14 am allow to dissolve in mouth OR may chew lightly before swallowing Levalbutero l Hcl 1.25 mg/3 mL solution for nebulizatio n Discont inued 1.25 MG INHALA TION Every 8 hours 2023 1:00am Octob er 2024 12:23 pm Celecoxib 200 mg capsule Discont inued 200 MG PO Daily as needed November 10, 2024 12:05p m November 16, 2024 11:16 am Celecoxib 200 mg capsule Active 400 MG PO Twice daily as needed for pain November 16, 2024 11:12a m Complies with drug therapy Prednisone 20 mg tablet Discont inued 20 MG PO Twice daily October 26, 2023 12:00a m November 24, 2023 2:52p m Azithromyci n 250 mg tablet Discont inued 0 PO .COMPLEX October 26, 2023 12:00a m December 02, 2023 10:11 am For 250 mg dose pack: take 500 mg today (day 1), then 250 mg for 4 days (days 2-5) PO Losartan 100 mg tablet Discont inued 100 MG PO Daily November 10, 2023 12:03p m Octob er 2023 8:34a m Sumatriptan Succinate 100 mg tablet Active 0 PO .COMPLEX July 07, 2024 1:00am take 1 tab at onset of headache; if no relief, may repeat 1 tab after at least 2 hrs; max = 2 tabs/24 hrs PO Complies with drug therapy Water For Inhal With Nebulizer kit Discont inued EACH INHALA TION July 07, 2024 1:00am November 26, 2024 12:10 pm Carvedilol 25 mg tablet Active 25 MG PO Twice daily with meals November 08, 2024 12:00a m must administer with a meal/food Complies with drug therapy Amlodipine 5 mg tablet Discont inued 5 MG PO Daily November 08, 2024 12:00a m November 10, 2024 12:05 pm Aspirin 81 mg tablet Discont inued 162 MG PO Daily November 08, 2024 12:00a m Octob er 2024 12:28 pm Topiramate 100 mg tablet Discont inued 100 MG PO Daily November 08, 2024 12:00a m November 10, 2024 12:05 pm Azithromyci n 500 mg tablet Discont inued 500 MG PO .3 times a week November 08, 2024 12:00a m November 26, 2024 12:08 pm Topiramate 50 mg tablet Discont inued 50 MG PO Twice daily November 08, 2024 12:00a m November 10, 2024 12:06 pm Magnesium Oxide 400 mg magnesium capsule Discont inued 400 MG PO Three times daily November 08, 2024 12:00a m November 16, 2024 11:13 am Losartan 25 mg tablet Discont inued 25 MG PO Daily November 10, 2024 12:00a m Aug2024 11:13 am Magnesium Oxide 400 mg (241.3 mg magnesium) tablet Discont inued 400 MG PO Three times daily December 06, 2024 12:00a m Augus 2024 11:13 am Magnesium Oxide 400 mg (241.3 mg magnesium) tablet Active 400 MG PO Three times daily December 06, 2024 11:12a m Complies with drug therapy Losartan 25 mg tablet Active 25 MG PO Daily December 06, 2024 11:13a m On Hold: Until seen by family doctor Complies with drug therapy Immunizations Immunization Event Date Not Given Reason Dose Number Personnel Counselor Lot Number Vaccine Information Statement (VIS) Detail Administration Location Influenza, seasonal, injectable, pf February 04, 2024 [id number] [facility] Tetanus, Diphtheria, Pertussis (Tdap) April 05, 2022 [id number] [facility] Procedures Procedure Date Performed Status CT head/brain wo con November 26, 2024 12:23pm com pleted XR chest 1V portable November 26, 2024 12:23pm com pleted XR hip LT min 2V(w/wo pelvis)* November 26, 2024 1 2:23pm completed XR knee RT 4V* November 26, 2024 12:23pm complete d Urine Culture February 03, 2025 completed XR chest 1V portable February 05, 2025 9:24am co mpleted XR chest 1V portable February 03, 2025 12:29pm c ompleted XR lumbar spine 2-3V* February 03, 2025 12:29pm completed Blood Culture February 03, 2025 completed Blood Culture February 03, 2025 completed Urine Culture February 03, 2025 completed Relevant Diagnostic Tests and/or Laboratory Data Laboratory Results Test Collection Date/Time Result Date/Time Result Interpretation Reference Range Result Comment Performing Site Anion Gap January 04, 2025 9:45am January 04, 2025 9:45am 13.0 Immunogl obulin G January 04, 2025 9:45am January 04, 2025 9:45am 1148 mg/dL [id number] Performed at: [facility] [id number] [place], [place] [id number] Director: Wilfredo Lee PhD, Phone: [phone] Albumin/ Globulin Ratio January 04, 2025 9:45am January 04, 2025 9:45am 0.9 Albumin January 04, 2025 9:45am January 04, 2025 9:45am 3.3 g/dL Below low normal 3.4-5.0 Alkaline Phosphat ase January 04, 2025 9:45am January 04, 2025 9:45am 125 U/L Above high normal 46-116 Alanine Aminotra nsferase (ALT/SGP T) January 04, 2025 9:45am January 04, 2025 9:45am 15 U/L Below low normal 16-63 Aspartat e Amino Transf (AST/SGO T) January 04, 2025 9:45am January 04, 2025 9:45am 10 U/L Below low normal 15-37 BUN/Crea tinine Ratio January 04, 2025 9:45am January 04, 2025 9:45am 22.2 Blood Urea Nitrogen January 04, 2025 9:45am January 04, 2025 9:45am 26.0 mg/dL Above high normal 7.0-18.0 Calcium Level January 04, 2025 9:45am January 04, 2025 9:45am 8.2 mg/dL Below low normal 8.5-10.1 Chloride Level January 04, 2025 9:45am January 04, 2025 9:45am 109 mmol/L Above high normal 98-107 Carbon Dioxide Level January 04, 2025 9:45am January 04, 2025 9:45am 23.5 mmol/L 21.0-32.0 Creatini ne January 04, 2025 9:45am January 04, 2025 9:45am 1.17 mg/dL 0.70-1.30 Estimate d GFR ( ) January 04, 2025 9:45am January 04, 2025 9:45am >60 >=60 mL/min/1.7 3m 2 Estimate d GFR (Non-Afr ican [place] January 04, 2025 9:45am January 04, 2025 9:45am >60 >=60 mL/min/1.7 3m 2 Globulin January 04, 2025 9:45am January 04, 2025 9:45am 3.6 g/dL Glucose Level January 04, 2025 9:45am January 04, 2025 9:45am 138 mg/dL Above high normal 74-106 Potassiu m Level January 04, 2025 9:45am January 04, 2025 9:45am 3.5 mmol/L 3.5-5.1 Sodium Level January 04, 2025 9:45am January 04, 2025 9:45am 142 mmol/L 136-145 Total Bilirubi n January 04, 2025 9:45am January 04, 2025 9:45am 0.3 mg/dL 0.2-1.0 Total Protein January 04, 2025 9:45am January 04, 2025 9:45am 6.9 g/dL 6.4-8.2 Correcte d White Blood Count November 18, 2024 8:21am November 18, 2024 8:43am 4.6 10*3/uL 4.1-10.5 [facility] [id number] [address] [place], [place] [address] Correcte d White Blood Count February 04, 2025 7:35am February 04, 2025 8:34am 4.2 10*3/uL 4.1-10.5 [facility] [id number] [address] [place], [place] [address] Correcte d White Blood Count February 05, 2025 10:56am February 05, 2025 11:13am 3.6 10*3/uL Below low normal 4.1-10.5 [facility] [id number] [address] [place], [place] [address] Uncorrec adalberto WBC Count November 18, 2024 8:21am November 18, 2024 8:43am 4.6 10*3/uL 4.1-10.5 [facility] [id number] [address] [facility] [address] Uncorrec adalberto WBC Count February 04, 2025 7:35am February 04, 2025 8:34am 4.2 10*3/uL 4.1-10.5 [facility] [id number] [address] [facility] [address] Uncorrec adalberto WBC Count February 05, 2025 10:56am February 05, 2025 11:13am 3.6 10*3/uL Below low normal 4.1-10.5 [facility] [id number] [address] [facility] [address] Red Blood Count November 18, 2024 8:21am November 18, 2024 8:43am 4.74 10*6/uL 3.90-5.60 [facility] [id number] [address] [place] [address] Red Blood Count February 04, 2025 7:35am February 04, 2025 8:34am 4.49 10*6/uL 3.90-5.60 [facility] [id number] [address] [place] [address] Red Blood Count February 05, 2025 10:56am February 05, 2025 11:13am 4.79 10*6/uL 3.90-5.60 [facility] [id number] [address] [facility] [address] Hemoglob in November 18, 2024 8:21am November 18, 2024 8:43am 13.7 g/dL 13.0-17.0 [facility] [id number] [address] [facility] [address] Hemoglob in February 04, 2025 7:35am February 04, 2025 8:34am 13.2 g/dL 13.0-17.0 [facility] [id number] [address] [place] [address] Hemoglob in February 05, 2025 10:56am February 05, 2025 11:13am 13.8 g/dL 13.0-17.0 [facility] [id number] [address] [facility] [address] Hematocr it November 18, 2024 8:21am November 18, 2024 8:43am 40.5 % 38.8-50.0 [facility] [id number] [address] [facility] [address] Hematocr it February 04, 2025 7:35am February 04, 2025 8:34am 39.6 % 38.8-50.0 [facility] [id number] [address] [place] [address] Hematocr it February 05, 2025 10:56am February 05, 2025 11:13am 42.3 % 38.8-50.0 [facility] [id number] [address] [facility] [address] Mean Corpuscu lar Volume November 18, 2024 8:21am November 18, 2024 8:43am 85.5 fL 83.5-101 [facility] [id number] [address] [facility] [address] Mean Corpuscu lar Volume February 04, 2025 7:35am February 04, 2025 8:34am 88.2 fL 83.5-101 [facility] [id number] [address] [place] [address] Mean Corpuscu lar Volume February 05, 2025 10:56am February 05, 2025 11:13am 88.3 fL 83.5-101 [facility] [id number] [address] [facility] [address] Mean Corpuscu lar Hemoglob in November 18, 2024 8:21am November 18, 2024 8:43am 28.9 pg 27.5-35.2 [facility] [id number] [address] [facility] [address] Mean Corpuscu lar Hemoglob in February 04, 2025 7:35am February 04, 2025 8:34am 29.3 pg 27.5-35.2 [facility] [id number] [address] [place] [address] Mean Corpuscu lar Hemoglob in February 05, 2025 10:56am February 05, 2025 11:13am 28.9 pg 27.5-35.2 [facility] [id number] [address] [place] [address] Mean Corpuscu lar Hemoglob in Concent November 18, 2024 8:21am November 18, 2024 8:43am 33.8 g/dL 32.5-35.6 [facility] [id number] [address] [place] [address] 19797 Mean Corpuscu lar Hemoglob in Concent February 04, 2025 7:35am February 04, 2025 8:34am 33.2 g/dL 32.5-35.6 [facility] [id number] [address] [place] [address] Mean Corpuscu lar Hemoglob in Concent February 05, 2025 10:56am February 05, 2025 11:13am 32.7 g/dL 32.5-35.6 [facility] [id number] [address] [facility] [address] Red Cell Distribu tion Width November 18, 2024 8:21am November 18, 2024 8:43am 15.4 % Above high normal 12.0-14.8 [facility] [id number] [address] [facility] [address] Red Cell Distribu tion Width February 04, 2025 7:35am February 04, 2025 8:34am 19.2 % Above high normal 12.0-14.8 [facility] [id number] [address] [facility] [address] Red Cell Distribu tion Width February 05, 2025 10:56am February 05, 2025 11:13am 19.3 % Above high normal 12.0-14.8 [facility] [id number] [address] [facility] [address] Platelet Count November 18, 2024 8:21am November 18, 2024 8:43am 217 10*3/uL 150-450 [facility] [id number] [address] [place] [address] Platelet Count February 04, 2025 7:35am February 04, 2025 8:34am 182 10*3/uL 150-450 [facility] [id number] [address] [place], [place] [address] Platelet Count February 05, 2025 10:56am February 05, 2025 11:13am 168 10*3/uL 150-450 [facility] [id number] [address] [place], [place] [address] Mean Platelet Volume November 18, 2024 8:21am November 18, 2024 8:43am 7.8 fL 6.6-10.1 [facility] [id number] [address] [facility] [address] Mean Platelet Volume February 04, 2025 7:35am February 04, 2025 8:34am 7.4 fL 6.6-10.1 [facility] [id number] [address] [place] [id number] Mean Platelet Volume February 05, 2025 10:56am February 05, 2025 11:13am 7.3 fL 6.6-10.1 [facility] [id number] [address] [facility] [address] Monocyte Distribu tion Width February 03, 2025 12:25pm February 03, 2025 12:55pm 17.87 % 0.00-20.00 [facility] [id number] [address] [facility] [address] Monocyte Distribu tion Width February 05, 2025 10:56am February 05, 2025 11:13am 17.65 % 0.00-20.00 [facility] [id number] [address] [facility] [address] Neutroph ils (%) (Auto) November 18, 2024 8:21am November 18, 2024 8:43am 39.5 % . [facility] [id number] [address] [facility] [address] Neutroph ils (%) (Auto) February 04, 2025 7:35am February 04, 2025 8:34am 56.9 % . [facility] [id number] [address] [facility] [address] Neutroph ils (%) (Auto) February 05, 2025 10:56am February 05, 2025 11:13am 53.0 % . [facility] [id number] [address] [facility] [address] Lymphocy zach (%) (Auto) November 18, 2024 8:21am November 18, 2024 8:43am 47.8 % . [facility] [id number] [address] [facility] [address] Lymphocy zach (%) (Auto) February 04, 2025 7:35am February 04, 2025 8:34am 32.7 % . [facility] [id number] [address] [facility] [address] Lymphocy zach (%) (Auto) February 05, 2025 10:56am February 05, 2025 11:13am 35.4 % . [facility] [id number] [address] [facility] [address] Monocyte s (%) (Auto) November 18, 2024 8:21am November 18, 2024 8:43am 9.8 % . [facility] [id number] [address] [facility] [address] Monocyte s (%) (Auto) February 04, 2025 7:35am February 04, 2025 8:34am 8.2 % . [facility] [id number] [address] [facility] [address] Monocyte s (%) (Auto) February 05, 2025 10:56am February 05, 2025 11:13am 6.8 % . [facility] [id number] [address] [facility] [address] Eosinoph ils (%) (Auto) November 18, 2024 8:21am November 18, 2024 8:43am 0.9 % . [facility] [id number] [address] [facility] [address] Eosinoph ils (%) (Auto) February 04, 2025 7:35am February 04, 2025 8:34am 1.1 % . [facility] [id number] [address] [facility] [address] Eosinoph ils (%) (Auto) February 05, 2025 10:56am February 05, 2025 11:13am 2.1 % . [facility] [id number] [address] [facility] [address] Basophil s (%) (Auto) November 18, 2024 8:21am November 18, 2024 8:43am 2.0 % . [facility] [id number] [address] [facility] [address] Basophil s (%) (Auto) February 04, 2025 7:35am February 04, 2025 8:34am 1.1 % . [facility] [id number] [address] [facility] [address] Basophil s (%) (Auto) February 05, 2025 10:56am February 05, 2025 11:13am 2.7 % . [facility] [id number] [address] [facility] [address] Nucleate d Red Blood Cells % (auto) March 13, 2022 2:43pm March 13, 2022 3:21pm 0.1 % 0-0.5 [facility] [id number] [address] [facility] [address] Nucleate d RBC Relative Count (auto) November 18, 2024 8:21am November 18, 2024 8:43am 0.1 /100{WBC} 0-0.5 [facility] [id number] [address] [facility] [address] Nucleate d RBC Relative Count (auto) February 04, 2025 7:35am February 04, 2025 8:34am 0.2 /100{WBC} 0-0.5 [facility] [id number] [address] [facility] [address] Nucleate d RBC Relative Count (auto) February 05, 2025 10:56am February 05, 2025 11:13am 0.1 /100{WBC} 0-0.5 [facility] [id number] [address] [facility] [address] Neutroph ils # (Auto) November 18, 2024 8:21am November 18, 2024 8:43am 1.8 10*3/uL 1.8-7.7 [facility] [id number] [address] [place] 44268[address] Neutroph ils # (Auto) February 04, 2025 7:35am February 04, 2025 8:34am 2.4 10*3/uL 1.8-7.7 [facility] [id number] [address] [place], [place] [address] Neutroph ils # (Auto) February 05, 2025 10:56am February 05, 2025 11:13am 1.9 10*3/uL 1.8-7.7 [facility] [id number] [address] [place] [address] Lymphocy zach # (Auto) November 18, 2024 8:21am November 18, 2024 8:43am 2.2 10*3/uL 1.00-4.8 [facility] [id number] [address] [facility] [address] Lymphocy zach # (Auto) February 04, 2025 7:35am February 04, 2025 8:34am 1.4 10*3/uL 1.00-4.8 [facility] [id number] [address] [place], [place] [address] Lymphocy zach # (Auto) February 05, 2025 10:56am February 05, 2025 11:13am 1.3 10*3/uL 1.00-4.8 [facility] [id number] [address] [place] [address]05 Monocyte s # (Auto) November 18, 2024 8:21am November 18, 2024 8:43am 0.4 10*3/uL 0.0-0.8 [facility] [id number] [address] [place] [address] 15347 Monocyte s # (Auto) February 04, 2025 7:35am February 04, 2025 8:34am 0.3 10*3/uL 0.0-0.8 [facility] [id number] [address] [place], [place] [address] Monocyte s # (Auto) February 05, 2025 10:56am February 05, 2025 11:13am 0.2 10*3/uL 0.0-0.8 [facility] [id number] [address] [place], [place] [address] Eosinoph ils # (Auto) November 18, 2024 8:21am November 18, 2024 8:43am 0.0 10*3/uL 0.0-0.45 [facility] [id number] [address] [place], [place] [address] Eosinoph ils # (Auto) February 04, 2025 7:35am February 04, 2025 8:34am 0.0 10*3/uL 0.0-0.45 [facility] [id number] [address] [place], [place] [address] Eosinoph ils # (Auto) February 05, 2025 10:56am February 05, 2025 11:13am 0.1 10*3/uL 0.0-0.45 [facility] [id number] [address] [place] [address] 21164 Basophil s # (Auto) November 18, 2024 8:21am November 18, 2024 8:43am 0.1 10*3/uL 0.0-0.2 [facility] [id number] [address] [place] [address] Basophil s # (Auto) February 04, 2025 7:35am February 04, 2025 8:34am 0.0 10*3/uL 0.0-0.2 [facility] [id number] [address] [place], [place] [address] Basophil s # (Auto) February 05, 2025 10:56am February 05, 2025 11:13am 0.1 10*3/uL 0.0-0.2 [facility] [id number] [address] [facility] [address] Red Blood Cell Morpholo gy February 11, 2023 8:39am February 11, 2023 12:28pm N/A [facility] [id number] [address] [facility] [address] Polychro masia January 14, 2022 12:02pm January 14, 2022 1:45pm Slight [facility] [id number] [address] [facility] [address] Hypochro masia March 13, 2022 2:43pm March 13, 2022 5:00pm Slight [facility] [id number] [address] [place] [address] Poikiloc ytosis May 08, 2022 1:49pm May 08, 2022 3:09pm Slight [facility] [id number] [address] [facility] [address] Anisocyt osis February 11, 2023 8:39am February 11, 2023 12:28pm Moderate [facility] [id number] [address] [facility] [address] Microcyt osis February 11, 2023 8:39am February 11, 2023 12:28pm Moderate [facility] [id number] [address] [facility] [address] Ovalocyt es May 08, 2022 1:49pm May 08, 2022 3:09pm Slight [facility] [id number] [address] [facility] [address] Smudge Cells February 11, 2023 8:39am February 11, 2023 12:28pm Slight [facility] [id number] [address] [facility] [address] Platelet Estimate February 11, 2023 8:39am February 11, 2023 12:28pm Normal Normal [facility] [id number] [address] [facility] [address] Platelet Morpholo gy Comment February 11, 2023 8:39am February 11, 2023 12:28pm Normal Normal [facility] [id number] [address] [facility] [address] Prothrom bin Time February 03, 2025 12:25pm February 03, 2025 12:41pm 11.2 s 9.0-12.9 A hematocrit value greater than 55% may lead to inaccurate results in coagulatio n testing. Patients having hematocrit values >55% require a special collection tube for coagulatio n studies. Please contact the laboratory at [phone] for redraw instructio ns. [facility] [id number] [address] [facility] [address] Prothrom b Time Internat ional Ratio February 03, 2025 12:25pm February 03, 2025 12:41pm 1.0 INR Therapeuti c Range A) Pre- and Peroperati ve OAT started two weeks before surgery. NOT HIP SURGERY: 1.5 - 2.5 HIP SURGERY: 2 - 3B) Primary and secondary prevention of venous THROMBOSIS : 2 - 3C) Active venous thrombosis , pulmonary embolisman d prevention of recurrent venous thrombosis : 2 - 3D) Prevention of arterial thromboemb olisminclu ding patients with mechanical heart valves: 3 - 4.5 [facility] [id number] [address] [facility] [address] Urine Color February 03, 2025 12:47pm February 03, 2025 12:56pm Yellow Yellow [facility] [id number] [address] [facility] [address] Urine Color February 05, 2025 11:14am February 05, 2025 11:30am Colorless Yellow [facility] [id number] [address] [facility] [address] Urine Appearan ce February 03, 2025 12:47pm February 03, 2025 12:56pm Cloudy Abnormal (applies to non-numeric results) Clear [facility] [id number] [address] [facility] [address] Urine Appearan ce February 05, 2025 11:14am February 05, 2025 11:30am Clear Clear [facility] [id number] [address] [facility] [address] Urine Specific [place] February 03, 2025 12:47pm February 03, 2025 12:56pm 1.032 Above high normal 1.001-1.03 0 [facility] [id number] [address] [facility] [address] Urine Specific [place] February 05, 2025 11:14am February 05, 2025 11:30am 1.009 1.001-1.03 0 [facility] [id number] [address] [facility] [address] Urine pH February 03, 2025 12:47pm February 03, 2025 12:56pm 6.0 5.0-9.0 [facility] [id number] [address] [facility] [address] Urine pH February 05, 2025 11:14am February 05, 2025 11:30am 7.0 5.0-9.0 [facility] [id number] [address] [facility] [address] Urine Leukocyt e Esterase February 03, 2025 12:47pm February 03, 2025 12:56pm 3+ Above high normal Negative [facility] [id number] [address] [facility] [address] Urine Leukocyt e Esterase February 05, 2025 11:14am February 05, 2025 11:30am Negative Negative [facility] [id number] [address] [facility] [address] Urine Nitrite February 03, 2025 12:47pm February 03, 2025 12:56pm Negative Negative [facility] [id number] [address] [facility] [address] Urine Nitrite February 05, 2025 11:14am February 05, 2025 11:30am Negative Negative [facility] [id number] [address] [facility] [address] Urine Protein February 03, 2025 12:47pm February 03, 2025 12:56pm 30 mg/dL Above high normal Negative [facility] [id number] [address] [facility] [address] Urine Protein February 05, 2025 11:14am February 05, 2025 11:30am Negative mg/dL Negative [facility] [id number] [address] [facility] [address] Urine Glucose (UA) February 03, 2025 12:47pm February 03, 2025 12:56pm Normal mg/dL Normal [facility] [id number] [address] [facility] [address] Urine Glucose (UA) February 05, 2025 11:14am February 05, 2025 11:30am Normal mg/dL Normal [facility] [id number] [address] [facility] [address] Urine Ketones February 03, 2025 12:47pm February 03, 2025 12:56pm Negative Negative [facility] [id number] [address] [facility] [address] Urine Ketones February 05, 2025 11:14am February 05, 2025 11:30am Negative Negative [facility] [id number] [address] [facility] [address] Urine Urobilin ogen February 03, 2025 12:47pm February 03, 2025 12:56pm 2 mg/dL Above high normal Normal [facility] [id number] [address] [facility] [address] Urine Urobilin ogen February 05, 2025 11:14am February 05, 2025 11:30am Normal mg/dL Normal [facility] [id number] [address] [facility] [address] Urine Bilirubi n February 03, 2025 12:47pm February 03, 2025 12:56pm Negative Negative [facility] [id number] [address] [facility] [address] Urine Bilirubi n February 05, 2025 11:14am February 05, 2025 11:30am Negative Negative [facility] [id number] [address] [facility] [address] Urine Occult Blood February 03, 2025 12:47pm February 03, 2025 12:56pm Negative Negative [facility] [id number] [address] [facility] [address] Urine Occult Blood February 05, 2025 11:14am February 05, 2025 11:30am Negative Negative [facility] [id number] [address] [facility] [address] Urine RBC February 03, 2025 12:47pm February 03, 2025 1:07pm 1-2 [HPF] 0-4 [facility] [id number] [address] [facility] [address] Urine WBC February 03, 2025 12:47pm February 03, 2025 1:07pm 50-100 [HPF] Above high normal 0-4 [facility] [id number] [address] [facility] [address] Urine WBC Clumps February 03, 2025 12:47pm February 03, 2025 1:07pm Many [LPF] Above high normal None Seen [facility] [id number] [address] [facility] [address] Urine Squamous Epitheli al Cells February 03, 2025 12:47pm February 03, 2025 1:07pm 3-4 [HPF] Above high normal 0-2 [facility] [id number] [address] [facility] [address] Urine Non-Squa mous Epitheli al Cells February 03, 2025 12:47pm February 03, 2025 1:07pm 1-2 [HPF] Above high normal None Seen [facility] [id number] [address] [facility] [address] Urine Calcium Oxalate Crystals February 03, 2025 12:47pm February 03, 2025 1:07pm Rare [HPF] [facility] [id number] [address] [facility] [address] Urine Bacteria February 03, 2025 12:47pm February 03, 2025 1:07pm Rare [HPF] None Seen [facility] [id number] [address] [facility] [address] Urine Hyaline Casts February 03, 2025 12:47pm February 03, 2025 1:07pm 50-100 [LPF] Above high normal 0-8 [facility] [id number] [address] [facility] [address] Urine Mucus February 03, 2025 12:47pm February 03, 2025 1:07pm 4+ [LPF] Abnormal (applies to non-numeric results) [facility] [id number] [address] [facility] [address] Glucose Level September 13, 2024 9:48am September 13, 2024 10:42am 100 mg/dL 70-100 ADA recommende d reference rangeRando m Glucose Reference Range is dependent on time and content of last meal. Glucose of more than 200 mg/dL in a nonstresse d, ambulatory subject supports the diagnosis of Diabetes Mellitus. [facility] [id number] [address] [facility] [address] Glucose Level February 04, 2025 7:35am February 04, 2025 8:52am 101 mg/dL Above high normal 70-100 ADA recommende d reference rangeRando m Glucose Reference Range is dependent on time and content of last meal. Glucose of more than 200 mg/dL in a nonstresse d, ambulatory subject supports the diagnosis of Diabetes Mellitus. [facility] [id number] [address] [place] 4426870 Glucose Level February 05, 2025 10:56am February 05, 2025 11:32am 84 mg/dL 70-100 ADA recommende d reference rangeRando m Glucose Reference Range is dependent on time and content of last meal. Glucose of more than 200 mg/dL in a nonstresse d, ambulatory subject supports the diagnosis of Diabetes Mellitus. [facility] [id number] [address] [place] 4426870 Blood Urea Nitrogen September 13, 2024 9:48am September 13, 2024 10:42am 20 mg/dL 11-25 [facility] [id number] [address] [place] 4426870 Blood Urea Nitrogen February 04, 2025 7:35am February 04, 2025 8:52am 22 mg/dL 11-25 [facility] [id number] [address] [place] 4426870 Blood Urea Nitrogen February 05, 2025 10:56am February 05, 2025 11:32am 17 mg/dL 11-25 [facility] [id number] [address] [facility] [address] Creatini ne September 13, 2024 9:48am September 13, 2024 10:42am 1.06 mg/dL 0.70-1.30 [facility] [id number] [address] [facility] [address] Creatini ne February 04, 2025 7:35am February 04, 2025 8:52am 1.09 mg/dL 0.70-1.30 [facility] [id number] [address] [facility] [address] Creatini ne February 05, 2025 10:56am February 05, 2025 11:32am 1.05 mg/dL 0.70-1.30 [facility] [id number] [address] [place] 4426870 Estimate d GFR (Non-Afr ican Argentine May 08, 2022 1:49pm May 08, 2022 3:07pm > 60 mL/Min [facility] [id number] [address] [place] 4426870 Estimate d GFR (CKD-EPI ) September 13, 2024 9:48am September 13, 2024 10:42am > 60.0 mL/Min [facility] [id number] [address] [facility] [address] Estimate d GFR (CKD-EPI ) February 04, 2025 7:35am February 04, 2025 8:52am > 60.0 mL/Min [facility] [id number] [address] [facility] [address] Estimate d GFR (CKD-EPI ) February 05, 2025 10:56am February 05, 2025 11:32am > 60.0 mL/Min [facility] [id number] [address] [facility] [address] Estimate d GFR ( ) May 08, 2022 1:49pm May 08, 2022 3:07pm > 60 mL/Min GFR estimated reference range: According to KDOQI guidelines , <60 ml/min/1.7 3m2 is sufficient to diagnose a patient with chronic kidney disease. [facility] [id number] [address] [facility] [address] Sodium Level September 13, 2024 9:48am September 13, 2024 10:42am 138 mmol/L 136-145 [facility] [id number] [address] [facility] [address] Sodium Level February 04, 2025 7:35am February 04, 2025 8:52am 139 mmol/L 136-145 [facility] [id number] [address] [facility] [address] Sodium Level February 05, 2025 10:56am February 05, 2025 11:32am 138 mmol/L 136-145 [facility] [id number] [address] [facility] [address] Potassiu m Level September 13, 2024 9:48am September 13, 2024 10:42am 3.9 mmol/L 3.5-5.1 [facility] [id number] [address] [facility] [address] Potassiu m Level February 04, 2025 7:35am February 04, 2025 8:52am 3.8 mmol/L 3.5-5.1 Hemolysis is present at a level that could interfere with the result.Con tact lab if redraw is required [facility] [id number] [address] [facility] [address] Potassiu m Level February 05, 2025 10:56am February 05, 2025 11:32am 3.9 mmol/L 3.5-5.1 [facility] [id number] [address] [facility] [address] Chloride Level September 13, 2024 9:48am September 13, 2024 10:42am 110 mmol/L Above high normal 98-107 [facility] [id number] [address] [facility] [address] Chloride Level February 04, 2025 7:35am February 04, 2025 8:52am 114 mmol/L Above high normal 98-107 [facility] [id number] [address] [facility] [address] Chloride Level February 05, 2025 10:56am February 05, 2025 11:32am 113 mmol/L Above high normal 98-107 [facility] [id number] [address] [facility] [address] Carbon Dioxide Level September 13, 2024 9:48am September 13, 2024 10:42am 23.6 mmol/L 21.0-31.0 [facility] [id number] [address] [facility] [address] Carbon Dioxide Level February 04, 2025 7:35am February 04, 2025 8:52am 23.0 mmol/L 21.0-31.0 [facility] [id number] [address] [facility] [address] Carbon Dioxide Level February 05, 2025 10:56am February 05, 2025 11:32am 22.7 mmol/L 21.0-31.0 [facility] [id number] [address] [facility] [address] Anion Gap September 13, 2024 9:48am September 13, 2024 10:42am 8.3 mEq/L 6.0-15.0 [facility] [id number] [address] [facility] [address] Anion Gap February 04, 2025 7:35am February 04, 2025 8:52am 5.8 mEq/L Below low normal 6.0-15.0 [facility] [id number] [address] [facility] [address] Anion Gap February 05, 2025 10:56am February 05, 2025 11:32am 6.2 mEq/L 6.0-15.0 [facility] [id number] [address] [facility] [address] Calcium Level September 13, 2024 9:48am September 13, 2024 10:42am 8.4 mg/dL Below low normal 8.6-10.3 [facility] [id number] [address] [facility] [address] Calcium Level February 04, 2025 7:35am February 04, 2025 8:52am 7.7 mg/dL Below low normal 8.6-10.3 [facility] [id number] [address] [place] 4426870 Calcium Level February 05, 2025 10:56am February 05, 2025 11:32am 8.2 mg/dL Below low normal 8.6-10.3 [facility] [id number] [address] [facility] [address] Magnesiu m Level February 03, 2025 12:25pm February 03, 2025 1:13pm 2.0 mg/dL 1.9-2.7 [facility] [id number] [address] [facility] [address] Total Protein September 13, 2024 9:48am September 13, 2024 10:42am 6.5 g/dL 6.4-8.9 [facility] [id number] [address] [facility] [address] Total Protein February 05, 2025 10:56am February 05, 2025 11:32am 6.6 g/dL 6.4-8.9 [facility] [id number] [address] [facility] [address] Albumin September 13, 2024 9:48am September 13, 2024 10:42am 3.7 g/dL 3.5-5.7 [facility] [id number] [address] [facility] [address] Albumin February 05, 2025 10:56am February 05, 2025 11:32am 3.7 g/dL 3.5-5.7 [facility] [id number] [address] [facility] [address] Globulin September 13, 2024 9:48am September 13, 2024 10:42am 2.8 g/dL [facility] [id number] [address] [facility] [address] Globulin February 05, 2025 10:56am February 05, 2025 11:32am 2.9 g/dL [facility] [id number] [address] [place] 4426870 Albumin/ Globulin Ratio September 13, 2024 9:48am September 13, 2024 10:42am 1.3 [facility] [id number] [address] [place] 4426870 Albumin/ Globulin Ratio February 05, 2025 10:56am February 05, 2025 11:32am 1.3 [facility] [id number] [address] [place] 4426870 Total Bilirubi n September 13, 2024 9:48am September 13, 2024 10:42am 0.3 mg/dL 0.3-1.0 [facility] [id number] [address] [facility] [address] Total Bilirubi n February 05, 2025 10:56am February 05, 2025 11:32am 0.5 mg/dL 0.3-1.0 [facility] [id number] [address] [place] [address]26870 Aspartat e Amino Transf (AST/SGO T) September 13, 2024 9:48am September 13, 2024 10:42am 13 U/L 13-39 [facility] [id number] [address] [place] 4426870 Aspartat e Amino Transf (AST/SGO T) February 05, 2025 10:56am February 05, 2025 11:32am 15 U/L 13-39 [facility] [id number] [address] [place] 4426870 Alanine Aminotra nsferase (ALT/SGP T) September 13, 2024 9:48am September 13, 2024 10:42am 9 U/L 7-52 [facility] [id number] [address] [place] 44268[address] Alanine Aminotra nsferase (ALT/SGP T) February 05, 2025 10:56am February 05, 2025 11:32am 11 U/L 7-52 [facility] [id number] [address] [place] [address] Alkaline Phosphat ase September 13, 2024 9:48am September 13, 2024 10:42am 94 U/L 34-104 [facility] [id number] [address] [place] [address] Alkaline Phosphat ase February 05, 2025 10:56am February 05, 2025 11:32am 68 U/L 34-104 [facility] [id number] [address] [place] [address] Lactate Dehydrog enase May 08, 2022 1:49pm May 08, 2022 3:07pm 132 U/L 45-190 [facility] [id number] [address] [place], [place] [address] Lactic Acid Level February 03, 2025 1:36pm February 03, 2025 1:58pm 1.2 mmol/L 0.5-1.9 Lactic Acid reference range has been updated to 0.5 1.9 mmol/L and the critical range of 2.0 or greater. [facility] [id number] [address] [place] [address] Iron Level November 18, 2024 8:21am November 18, 2024 9:49am 31 ug/dL Below low normal 50-212 [facility] [id number] [address] [place] [address] Total Iron Binding Capacity November 18, 2024 8:21am November 18, 2024 9:49am 326 ug/dL 255-450 [facility] [id number] [address] [place] [address] Iron Saturati on November 18, 2024 8:21am November 18, 2024 9:49am 9.5 % Below low normal 20-50 [facility] [id number] [address] [place] [address] Transfer rin November 18, 2024 8:21am November 18, 2024 9:49am 233 mg/dL 203-362 [facility] [id number] [address] [place] [address] Ferritin November 18, 2024 8:21am November 18, 2024 10:09am 26.0 ng/mL 23.9-336.2 [facility] [id number] [address] [facility] [address] Troponin I High Sensitiv ity February 03, 2025 12:25pm February 03, 2025 1:20pm 11 ng/L 0-20 The Troponin units of report have been changed to meet the Chest Pain Accreditat ion requiremen t, element EC5.M1l2. Troponin units are changed from pg/ml to ng/L. Also, the decimal is removed and results are in whole numbers. [facility] [id number] [address] [facility] [address] Troponin I High Sensitiv ity February 05, 2025 10:56am February 05, 2025 11:40am 10 ng/L 0-20 The Troponin units of report have been changed to meet the Chest Pain Accreditat ion requiremen t, element EC5.M1l2. Troponin units are changed from pg/ml to ng/L. Also, the decimal is removed and results are in whole numbers. [facility] [id number] [address] [place] [address] B-Type Natriure tic Peptide February 03, 2025 12:25pm February 03, 2025 1:19pm 66.0 pg/mL 5-100 [facility] [id number] [address] [place], [place] [address] Vitamin B12 Level September 01, 2023 9:25am September 01, 2023 10:57am 580 pg/mL 180-914 [facility] [id number] [address] [place] [address] Folate September 01, 2023 9:25am September 01, 2023 10:56am 10.7 ng/mL >5.9 Folate reference range: >5.9 ng/mlThe WHO technical consultati on on folate and vitamin t30xquarfx ncies has determined that folate concentrat ions lessthan 4 ng/ml are considered deficient. [facility] [id number] [address] [place], [place] [address] Pharmacy Creatini ne Clearanc e (Chem September 13, 2024 9:48am September 13, 2024 10:42am 78.31 [facility] [id number] [address] [place], [place] [address] Pharmacy Creatini ne Clearanc e (Chem February 04, 2025 7:35am February 04, 2025 8:52am 72.92 [facility] [id number] [address] [facility] [address] Pharmacy Creatini ne Clearanc e (Chem February 05, 2025 10:56am February 05, 2025 11:32am 73.39 [facility] [id number] [address] [facility] [address] Gastrin January 14, 2022 12:02pm January 16, 2022 4:09pm 1533 pg/mL Above high normal 0-115 Siemens Hoot.Meulite 2000 Immunochem iluminomet donn assay (ICMA)Valu es obtained with different assay methods or kits cannotbe used interchang eably. Results cannot be interprete d asabsolute evidence of the presence or absence of malignantd isease.R esults verified by repeat testing [facility] 00 Anti-Par ietal Cell Antibody January 14, 2022 12:02pm January 15, 2022 12:08pm 15.7 Units 0.0-20.0 Negative 0.0 - 20.0 Equivocal 20.1 - 24.9 Positive >24.9Parie raquel Cell Antibodies are found in 90% of patientswi th pernicious anemia and 30% of first degreerela tives with pernicious anemia.Per formed at: - [facility] [address] [id number] ab Director: Wilfredo Lee PhD, Phone: [phone] [facility] 00 Intrinsi c Factor Antibody January 14, 2022 12:02pm January 16, 2022 4:09pm 1.0 AU/mL 0.0-1.1 Performed at: - [facility] [address] [id number] ab Director: Cris Ridley MD, Phone: [phone] [facility] 00 Bedside Glucose February 03, 2025 4:40pm February 03, 2025 4:42pm 111 mg/dL Random Glucose Reference Range is dependent on time and content of last meal. Glucose of more than 200 mg/dL in a nonstresse d, ambulatory subject supports the diagnosis of Diabetes Mellitus. Point of Care testing Bedside Glucose February 05, 2025 10:07am February 05, 2025 10:15am 79 mg/dL Random Glucose Reference Range is dependent on time and content of last meal. Glucose of more than 200 mg/dL in a nonstresse d, ambulatory subject supports the diagnosis of Diabetes Mellitus. Point of Care testing Microbiology Results Procedure Source Result Collection Date/Time Result Date/Time Result Comment Performing Site Blood Culture Blood, Left Hand NO GROWTH 5 DAYS February 03, 2025 1:36pm February 08, 2025 1:46pm [facility] [id number] [address] [place] [address] Blood Culture Blood, Right Hand NO GROWTH 5 DAYS February 03, 2025 2:29pm February 08, 2025 2:34pm [facility] [id number] [address] [facility] [address] Urine Culture Urine, Not Otherwise Specified February 03, 2025 8:53am February 06, 2025 10:08am [facility] [id number] [address] [facility] [address] Urine Culture Urine, Straight Cath February 03, 2025 12:47pm February 06, 2025 10:07am [facility] [id number] [address] [facility] [address] Diagnostic Imaging Reports Author Dustin Last [facility] Authored November 26, 2024 12:3 4pm Report Dictated Date/Time Dictated By Status Radiology Report November 26, 2024 12:34pm Dustin Last Jr DO completed [facility] Main [place] [address] [place] [address] CT Scan Report Signed Patient: Brandon Bagley MR#: [id number] : 1960 Acct:[id number] Age/Sex: 64 / M ADM Date: 5 Loc: ER Room: Type: PRE ER Attending Dr: Copies to: Justyn Elmore DO~ Ordering Provider: Justyn Elmore DO Date of Service: 11/26/24 CT/CT head/brain wo con: fall CT BRAIN WITHOUT CONTRAST: CLINICAL HISTORY: Fall. COMPARISON: None TECHNIQUE: Contiguous axial unenhanced images were obtained through the brain. This CT exam was performed using one or more following dose reduction techni ques: Automated exposure control, adjustment of the mA and/or kV according to patient size, or use of iterative reconstruction technique. FINDINGS: There is no evidence of midline shift, intra or extra-axial fluid collection, hemorrhage or CT evidence of stroke. Cortical atrophy with chronic microvascular ischemic changes. Posterior fossa appears unremarkable. Visualized intraorbital contents demonstrate no acute findings. Visualized paranasal sinuses are clear. The surrounding soft tissues are normal. CT/CT head/brain wo con IMPRESSION: NO ACUTE INTRACRANIAL ABNORMALITY. Impression dictated by: Dustin Last Jr., D.O. 11/26/2024 12:36 PM Dictation Location: [facility] Transcribed By: [facility] 11/26/24 1236 Dictated By: Dustin Last Jr, DO 11/26/24 1234 Signed By: <Electronically signed by Dustin Last Jr, DO in [place]> 11/26/24 1236 Author Dustin Last [facility] Authored November 26, 2024 1:03 pm Report Dictated Date/Time Dictated By Status Radiology Report November 26, 2024 1:03pm Dustin joya Jr DO completed [facility] [place] [address] XRay Report Signed Patient: Brandon Bagley MR#: [id number] : 1960 Acct:[id number] Age/Sex: 64 / M ADM Date: 5 Loc: ER Room: Type: [facility] ER Attending Dr: Copies to: Justyn Elmore DO~ Ordering Provider: Justyn Elmore DO Date of Service: 11/26/24 XR/XR chest 1V portable: Fall ([id number]) XR/XR hip LT min 2V(w/wo pelvis)*: Fall ([id number]) XR/XR knee RT 4V*: Fall SINGLE VIEW CHEST , right knee 4 views, left hip 2 views with one view of the pelvis CLINICAL HISTORY: Fell out of bed last night. COMPARISON: Chest 07/29/2021 FINDINGS: Chest: Cardiomegaly with vascular congestion is unchanged. Mild interstitial changes, grossly unchanged. No new consolidation pneumothorax pleural effusion or free air. No displaced rib fracture is seen. Right knee: Severe degenerative changes involving the right knee with moderate joint effusion. No acute bony process. Left hip/pelvis: Degenerative changes are noted involving the visualized lower lumbar spine, SI joints and pubic symphysis. Spina bifida occulta L5. Partially visualized right RONALD. Minimal degenerative changes involving the left hip. No acute bony process. XR/XR chest 1V portable IMPRESSION: CHEST DEMONSTRATES CHF FINDINGS SIMILAR TO THE PRIOR STUDY. RIGHT KNEE DEMONSTRATES SEVERE DEGENERATIVE CHANGES WITHOUT ACUTE BONY PROCESS. LEFT HIP/PELVIS DEMONSTRATE MINIMAL DEGENERATIVE CHANGE INVOLVING THE LEFT HIP WITHOUT ACUTE BONY PROCESS. Impression dictated by: Dustin Last Jr., D.O. 11/26/2024 1:06 PM Dictation Location: [facility] Transcribed By: [facility] 11/26/24 1306 Dictated By: Dustin Last Jr, DO 11/26/24 1303 Signed By: <Electronically signed by Dustin Last Jr, DO in [place]> 11/26/24 1306 Author Dustin Last [facility] Authored February 03, 2025 1: 25pm Report Dictated Date/Time Dictated By Status Radiology Report February 03, 2025 1:25pm Dustin Last Jr DO completed [facility] [place] [address] XRay Report Signed Patient: Brandon Bagley MR#: [id number] : 1960 Acct:[id number] Age/Sex: 65 / M ADM Date: 5 Loc: ER Room: Type: PRE ER Attending Dr: Copies to: Ezio Loyd DO~ Ordering Provider: Ezio Loyd DO Date of Service: 02/03/25 XR/XR chest 1V portable: Fall SINGLE VIEW CHEST CLINICAL HISTORY: Fall. COMPARISON: Chest 11/26/2024 FINDINGS: Cardiomegaly with vascular congestion which has progressed since the prior study. Low lung volumes. No pneumothorax, large pleural effusion or free air. No displaced rib fracture. XR/XR chest 1V portable IMPRESSION: CARDIOMEGALY WITH VASCULAR CONGESTION WHICH IS PROGRESSED SINCE THE PRIOR STUDY. NO CONSOLIDATION IS SEEN TO SUGGEST PNEUMONIA. Impression dictated by: Dustin Last Jr., D.O. 02/03/2025 1:26 PM Dictation Location: [id number] Transcribed By: [facility] 02/03/25 1326 Dictated By: Dustin Last Jr, DO 02/03/25 1325 Signed By: <Electronically signed by Dustin Last Jr, DO in OV> 02/03/25 1326 Author Dust[address] [facility] Authored February 03, 2025 1: 30pm Report Dictated Date/Time Dictated By Status Radiology Report February 03, 2025 1:30pm Dustin Last Jr DO completed [facility] [place] [address] XRay Report Signed Patient: Brandon Bagley MR#: [id number] : 1960 Acct:[id number] Age/Sex: 65 / M ADM Date: 5 Loc: ER Room: Type: PRE ER Attending Dr: Copies to: Ezio Loyd DO~ Ordering Provider: Ezio Loyd DO Date of Service: 02/03/25 XR/XR lumbar spine 2-3V*: Fall LUMBAR SPINE - 2 views CLINICAL HISTORY: Fall. Low back pain COMPARISON: Lumbar spine 05/22/2022 FINDINGS: Levoscoliosis is present. Vertebral body heights appear maintained. Scattered endplate and facet joint degenerative changes with moderate disc space narrowing L3-L4 and L4-L5. Spina bifida occulta L5. SI joints also demonstrate degenerative change. XR/XR lumbar spine 2-3V* IMPRESSION: DEGENERATIVE CHANGES INVOLVING THE LUMBAR SPINE SIMILAR TO THE 2022 STUDY WITHOUT ACUTE BONY PROCESS. Impression dictated by: Dustin Last Jr., D.O. 02/03/2025 1:39 PM Dictation Location: RADIO-PC-23 Transcribed By: MEI 02/03/25 1339 Dictated By: Dustin Last Jr, DO 02/03/25 1330 Signed By: <Electronically signed by Dustin Last Jr, DO in OV> 02/03/25 1339 Author Dustin Last [facility] Authored February 05, 2025 9: 52am Report Dictated Date/Time Dictated By Status Radiology Report February 05, 2025 9:52am Dustin Last Jr DO completed [facility] Main [place] [address] [place] [address] XRay Report Signed Patient: Brandon Bagley MR#: [id number] : 1960 Acct:[id number] Age/Sex: 65 / M ADM Date: Loc: ER Room: Type: PRE ER Attending Dr: Copies to: Jacki Goodwin MD~ Ordering Provider: Jacki Goodwin MD Date of Service: 02/05/25 XR/XR chest 1V portable: Weakness SINGLE VIEW CHEST CLINICAL HISTORY: Weakness. COMPARISON: Chest 02/03/2025 FINDINGS: Cardiomegaly, vascular congestion and low lung volumes similar to the prior study. No new consolidation pneumothorax pleural effusion or free air. XR/XR chest 1V portable IMPRESSION: CHF FINDINGS GROSSLY UNCHANGED. Impression dictated by: Dustin Last Jr., D.O. 02/05/2025 9:53 AM Dictation Location: RADIO-PC-18 Transcribed By: [facility] 02/05/25 0953 Dictated By: Dustin Last Jr, DO 02/05/25 0952 Signed By: <Electronically signed by Dustin Last Jr, DO in OV> 02/05/25 0953 Vital Signs Vital Reading Result Reference Range Collection Date/Time Height 69.5 [in_i] November 16, 2024 11:05am Weight 80.00 kg November 16, 2024 11:05am Heart Rate 84 /min 60-100 November 16, 2024 11:05am BP Systolic 150 mm[Hg] 100-140 November 16, 2024 11:05am BP Diastolic 94 mm[Hg] 60-100 November 16, 2024 11:05am BMI (Body Mass Index) 25.7 kg/m2 November 012024 11:05am Height 69 [in_i] November 26, 2024 12:08pm Weight 88.00 kg November 26, 2024 12:08pm Body Temperature 97.7 [degF] 97.6-99.0 November 26, 2024 12:08pm Heart Rate 63 /min 60-100 November 26, 2024 12:08pm Respiratory rate 22 /min -November 26, 2024 12:08pm Oxygen saturation by Pulse oximetry 98 % 95-100 November 26, 2024 12:0 8pm BP Systolic 119 mm[Hg] 100-140 November 26, 2024 12:08pm BP Diastolic 74 mm[Hg] 60-100 November 26, 2024 12:08pm Height 69 [in_i] November 29, 2024 3:05pm Weight 87.99 kg November 29, 2024 3:05pm Body Temperature 97.8 [degF] 97.6-99.0 November 29, 2024 3:05pm Heart Rate 58 /min 60-100 November 29, 2024 3:05pm Respiratory rate 16 /min -November 29, 2024 3:05pm Oxygen saturation by Pulse oximetry 97 % 95-100 November 29, 2024 3:05 pm BP Systolic 123 mm[Hg] 100-140 November 29, 2024 3:05pm BP Diastolic 75 mm[Hg] 60-100 November 29, 2024 3:05pm BMI (Body Mass Index) 28.6 kg/m2 November 022024 3:05pm Height 69 [in_i] December 06 10:56am Weight 86.63 kg December 06 10:56am Heart Rate 55 /min 60-100 December 06 10:56am BP Systolic 145 mm[Hg] 100-140 December 06 10:56am BP Diastolic 75 mm[Hg] 60-100 December 06 10:56am BMI (Body Mass Index) 28.2 kg/m2 December 06, 2024 10:56am Height 69 [in_i] November 29, 2024 3:05pm Weight 87.08 kg December 15 1:23pm Body Temperature 97.4 [degF] 97.6-99.0 February 1:14pm Heart Rate 64 /min 60-100 December 22 1:30pm Respiratory rate 20 /min -December 1:30pm Oxygen saturation by Pulse oximetry 97 % 95-100 December 22, 2024 1: 30pm BP Systolic 132 mm[Hg] 100-140 December 22, 1:30pm BP Diastolic 76 mm[Hg] 60-100 December 22, 1:30pm BP Systolic 130 mm[Hg] 100-140 December 30, 9:20am BP Diastolic 78 mm[Hg] 60-100 December 30, 9:20am Height 69 [in_i] January 26, 2025 11:05am Weight 81.19 kg January 26, 2024 11:05am BP Systolic 177 mm[Hg] 100-140 January 26, 2024 11:09am BP Diastolic 107 mm[Hg] 60-100 January 26, 2024 11:09am BMI (Body Mass Index) 26.4 kg/m2 2024 11:05am Height 71 [in_i] February 03, 5:29pm Weight 86.20 kg February 04, 3:48am Body Temperature 98.0 [degF] 97.6-99.0 February 12:00pm Heart Rate 82 /min 60-100 February 04, 12:04pm Respiratory rate 20 /min -February 04 , 2024 12:04pm Oxygen saturation by Pulse oximetry 97 % 95-100 February 04, 2025 12 :00pm BP Systolic 147 mm[Hg] 100-140 February 04, 12:00pm BP Diastolic 77 mm[Hg] 60-100 February 04, 12:00pm Height 70 [in_i] February 05, 10:06am Weight 84.36 kg February 05, 10:06am Body Temperature 98.8 [degF] 97.6-99.0 February 9:35am Heart Rate 65 /min 60-100 February 05, 12:00pm Respiratory rate 24 /min -February 12:00pm Oxygen saturation by Pulse oximetry 100 % 95-100 February 05, 2025 12 :00pm BP Systolic 152 mm[Hg] 100-140 February 05, 12:00pm BP Diastolic 93 mm[Hg] 60-100 February 05, 12:00pm Height 69 [in_i] February 09, 1:06pm Weight 86.63 kg February 09, 1:06pm Heart Rate 64 /min 60-100 February 09 1:17pm BP Systolic 170 mm[Hg] 100-140 February 09 1:17pm BP Diastolic 92 mm[Hg] 60-100 February 09 1:17pm BMI (Body Mass Index) 28.2 kg/m2 Octobe r 2024 1:06pm Advance Directives Advance Directive Response Recorded Date/ Time Advance Directives No October 29 4:43pm Insurance Providers Guarantor Brandon Skip Yudi Address [address] [place] [address] Contact Info. Home Phone: Payer Policy Id Subscriber's Name Subscriber Id Effectiv e Date Expiration Date O [id number] Brandon Valdivia Yudi [id number] Encounters Encounter Location(s) Arrival/Admit Date Discharge /Depart Date Provider(s) Departed Physician/Provi cesar Office Visit -[facility] November 16, 2024 10:59am November 16, 2024 11:45am Raquel Rayo MD Departed Emergency -Emergency Room November 26, 2024 12:01pm November 26, 2024 2:31pm Non-patient / Non-visit -[facility] November 28, 2024 9:32am Mari Laureano CMA Departed Physician/Provi cesar Office Visit -[facility] November 29, 2024 3:00pm November 29, 2024 3:45pm GREYSON Delacruz Departed Physician/Provi cesar Office Visit -[facility] December 06, 2024 10:54am December 06, 2024 11:14am Raquel Rayo MD Registered Recurring -[facility] December 22, 2024 1:20pm GREYSON Delacruz Departed Physician/Provi cesar Office Visit -[facility] December 28, 2024 11:27am December 28, 2024 11:54am Raquel Rayo MD Departed Physician/Provi cesar Office Visit -[facility] December 30, 2024 9:12am December 30, 2024 9:52am Hrapal Lees MD Non-patient / Non-visit -[facility] January 04, 2025 9:45am Harpal Brito MD Departed Clinical -Electrodiagnosti cs January 05, 2025 12:33pm January 05, 2025 12:34pm Raquel Rayo MD Departed Physician/Provi cesar Office Visit -[facility] January 26, 2025 10:40am January 26, 2025 11:26am Harpal Lees MD Departed Referred -[facility] February 03, 2025 8:53am February 03, 2025 8:54am Raquel Rayo MD Discharged Inpatient -[facility] February 03, 2025 2:22pm February 04, 2025 1:59pm Luz Leos MD Departed Emergency -Emergency Room February 05, 2025 8:42am February 05, 2025 12:26pm Non-patient / Non-visit -[facility] February 06, 2025 10:49am Mari Laureano CMA Departed Physician/Provi cesar Office Visit -[facility] February 09, 2025 1:02pm February 09, 2025 1:49pm Raquel Rayo MD Recent Diagnosis Onset Date Admit Date Hypertension Unknown November 16, 2024 10:59am Hypokalemia Unknown November 16, 2024 10:59am Hypotension Unknown November 16, 2024 10:59am RTA (renal tubular acidosis) Unknown Nov 10:59am Syncope Unknown November 16, 2024 10:59am Iron deficiency anemia secon jd to blood loss (chronic) Unknown November 29, 2024 3:00pm Closed head injury Unknown December 06, 2 025 10:54am Hypertension Unknown December 06, 2024 10:54am Hypomagnesemia Unknown December 06, 2024 10:54am Moderate episode of recurren t major depressive disorder Unknown December 06, 2024 10:54am Iron deficiency anemia secon jd to blood loss (chronic) Unknown December 22, 2024 1:20pm Pernicious anemia Unknown December 28, 2 025 11:27am Bilateral primary osteoarthritis of knee Unknown December 30, 2024 9:12am Bilateral primary osteoarthritis of knee Unknown January 26, 2025 10:40am Acute UTI Unknown February 03 2:22pm Hypotension Unknown February 03 2:22pm Syncope Unknown February 03 2:22pm Syncope and collapse Unknown February 2:22pm Functional Status Observation Response Date Recorded Dressing Patient at Baseline February 04, 2025 1:56pm Eating Patient at Baseline February 04, 2025 1:56pm Bathing Patient at Baseline February 04, 2025 1:56pm Disability Status Patient at Baseline February 1:56pm Functional Status Comment Octobe r 2024 1:56pm Mental Status Observation Response Date Recorded Cognitive Status Patient at Baseline February 1:56pm Cognitive/Mental Status Assessments Assessments Diagnosis Onset Date Resolution Status Admit Date Hypertension acute November 16, 2 025 10:59am Hypokalemia acute November 16 10:59am Hypotension acute November 16 10:59am RTA (renal tubular acidosis) acute November 16, 2024 10:59am Syncope acute November 16 10:59am 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c) acute November 29, 2024 3:00pm Closed head injury acute December 06, 2024 10:54am Hypertension acute December 06, 2024 10:54am Hypomagnesemia acute December 10:54am Moderate episode of recurren t major depressive disorder acute December 06, 2024 10:54am 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c) acute December 22 1:20pm Pernicious anemia acute December 28, 2024 11:27am Bilateral primary osteoarthritis of knee acute December 302024 9:12am Bilateral primary osteoarthritis of knee acute January 26, 2025 10:40am Acute UTI acute February 03, 2 025 2:22pm Hypotension acute February 03, 2025 2:22pm Syncope acute February 03 025 2:22pm Syncope and collapse acute 2024 2:22pm Plan of Treatment Author Ruth Griffin [facility] Authored November 29, 2024 3:50 pm Iron deficiency anemia d/t c hronic blood loss symptomatic with moderately severs GI intolerance to oral iron supplementation Given IV Venofer Jan 2022 Will offer additional IV Venofer in Mar 2022 as counts did not completely normalize after initial dosing in JanMay 2022 iron studies ok, no need for additional iron. EGD done without evidence of bleeding August 2022 iron studies remain WNL [...] his fatigue with his pcp if necessary November 2023 hemoglobin and iron studies remain stable and WNL. No changes from a hematology standpoint. Will plan repeat labs in 3mo and in 6mo with follow-up, sooner if needed May 2024 his hemoglobin has remained WNL. No s/s of bleeding. Iron studies with normal TIBC, but elevated saturation (likely lab error). Ferritin 22.6. Will plan to monitor with repeat labs in 3mo and in 6mo with follow-up November 2024 his hemoglobin was 12.9 in early November. Iron saturation is low 9.5%. This is significantly down from previous. Will proceed with IV iron infusions- He had signiciatn bruising with his falls. No GI symptoms. If drops after this, will consider repeat colonoscopy and EGD Continues to get IVIG infusions about every 4-6wks thru immunology. Author Raquel [facility] Authored November 29, 2024 8:31 am Reviewed new med profile. Ch eduar echo w the syncope associated. Symptoms resolved w IVF, rest and decreased bp medicaitons. Chronic; acute at time of admission. Saw Nephrology in the past and diagnosed w RTA. He takes potassium supplement daily. as above Resolved. Medications decreased and bps improved. Author Raquel [facility] Authored December 06, 2024 11: 28am Brandon states he has a call ou t to his Neurologist due to his constant headache since the fall. Reviewed imaging w Brandon and his son. Pt states symptoms are adequately controlled on present dose of venlafaxine. Losartan refilled, stable. Mg refilled. Future Tests Future scheduled test information is unavailable Pending Tests Test Name Ordered Date Scheduled Date Comprehensive Metabolic Panel November 29, 2024 3: 33pm 3 Months Comprehensive Metabolic Panel November 29, 2024 3: 34pm 6 Months US venous duplex LE LT February 09, 2025 1:35pm Future Visits Future appointment information is unavailable Referrals to Other Providers Reason for Referral Referral Start Date Provider Provider Contact Information Provider Address Raquel Rayo MD Work Phone: [address] [facility] [address] Raquel Rayo MD Work Phone: [address] [facility] [address] Follow-up with your Primary Care Provider, call office to reschedule if needed. Raquel Rayo MD Work Phone: [address] [facility] [address] D50.0 - 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c),R97.20 - Elevated prostate specific antigen [PSA] November 29, 2024 Checo Monson MD [address] [facility] [address] Future Procedures Procedure Name Ordered Date Scheduled Date Patient Navigator Distress Screening March 18, 2022 3:37pm March 18, 2022 3:37pm Apply O2 via Nasal Cannula 4 L to Maintain SpO2 of >=90% January 14, 2022 3:06pm January 24, 2022 12:00am Apply O2 via Nasal Cannula 4 L to Maintain SpO2 of >=90% January 14, 2022 3:06pm January 29, 2022 12:00am Apply O2 via Nasal Cannula 4 L to Maintain SpO2 of >=90% November 29, 2024 3:47pm December 15, 2024 12:00am Apply O2 via Nasal Cannula 4 L to Maintain SpO2 of >=90% November 29, 2024 3:47pm December 20, 2024 12:00am Apply O2 via Nasal Cannula 4 L to Maintain SpO2 of >=90% January 14, 2022 3:06pm January 22, 2022 12:00am Apply O2 via Nasal Cannula 4 L to Maintain SpO2 of >=90% March 18, 2022 4:31pm March 26, 2022 1:00am Apply O2 via Nasal Cannula 4 L to Maintain SpO2 of >=90% March 18, 2022 4:31pm April 03, 2022 1:00am Apply O2 via Nasal Cannula 4 L to Maintain SpO2 of >=90% March 18, 2022 4:31pm April 11, 2022 1:00am Apply O2 via Nasal Cannula 4 L to Maintain SpO2 of >=90% November 29, 2024 3:47pm December 22, 2024 12:00am Orders Panel Function Communication Order January 29, 2022 12:45pm January 29, 2022 12:45pm Orders Panel Function Communication Order April 07, 2022 5:06pm April 07, 2022 5:06pm Orders Panel Function Communication Order December 12, 2024 12:55pm December 12, 2024 12:55pm Orders Panel Function Communication Order January 24, 2022 10:37am January 24, 2022 10:37am Orders Panel Function Communication Order April 01, 2022 12:34pm April 01, 2022 12:34p m Orders Panel Function Communication Order December 19, 2024 2:01pm December 19, 2024 2:01pm Initiate Home Health February 04, 2025 1:28pm 1 Days Admit Status Order February 03, 2025 2:22pm Octo elle 2024 2:22pm Discharge Order February 04, 2025 12:34pm Octobe r 2024 12:34pm Complete Blood Count Auto Diff November 29, 2024 3 :34pm 6 Months Complete Blood Count Auto Diff November 29, 2024 3 :33pm 3 Months Iron and TIBC Profile November 29, 2024 3:33pm 3 M onths Iron and TIBC Profile November 29, 2024 3:34pm 6 M onths Ferritin November 29, 2024 3:34pm 6 Months Ferritin November 29, 2024 3:33pm 3 Months Future Medications Future medication information is unavailable Patient Instructions Instruction Admit Date Head injury in adults November 26, 2024 12 :01pm Know your Meds February 03, 2025 2: 22pm Dizziness in adults - ED dis charge instructions Headache in adults - ED discharge instructions February 05, 2025 8:42am Goals Acute Goals Author Authored Date Maintain/increase activity levels * Understands factors that may lead to activity intolerance * Helps perform self care activities * Maintains maximum range of motion * Increase/regain muscle mass and strength * Maintains VS WNL during activity * Maintain intact skin integrity Updated: 06/16/2022 [facility] December 22, 2024 1:44pm Exhibit optimal tissue perfu kelsi * Exhibits adequate oxygenation and ventilation * Exhibits adequate cardiac output * Regains stable cardiac rhythm * Maintains optimal activity level * Maintains balanced intake and output [facility] February 04, 2025 1:59pm Maintain/increase activity levels * Understands factors that may lead to activity intolerance * Helps perform self care activities * Maintains maximum range of motion * Increase/regain muscle mass and strength * Maintains VS WNL during activity * Maintain intact skin integrity Updated: 06/16/2022 [facility] February 04, 2025 1:59pm Fall Prevention 2022 [facility] February 04, 2025 1:59pm Skin integrity intact [facility] February 04, 2025 1:59pm Preferences Type Detail Treatment Intervention Code Status: Full Code
== END 2025-02-10 13:10 | disposition home or self-care (01) ==
LOC: US 13:09
PROVIDERS: PCP Family Medicine; Visit Provider Family Medicine
DX: M79.605 Pain in left leg (principal); Z86.718 Personal history of other venous thrombosis and embolism
CPT/HCPCS: 93971

== ENCOUNTER 2025-02-27 09:39 | Outpatient (RCR) | payer MEDICARE, SELFPAY ==
[2025-02-01] MEDS: 0.9 % SODIUM CHLORIDE 500 ML 250 ML IV (09:40)
[2025-02-01 09:41] VITALS: BP 184/102; PULSE 80; TEMP 36.6; O2SAT 95
[2025-02-01] MEDS: HYDROCORTISONE SODIUM SUCC PF 100 MG/2 ML VIAL 120 MG IVP (09:58)
[2025-02-01] MEDS: IMMUNE GLOBUL G/GLY/IGA AVG 46 400 ML IV (10:10)
[2025-02-01 10:30] VITALS: BP 184/102; PULSE 80; TEMP 36.6; O2SAT 95
--- NOTE | 2025-02-01 10:41 | PC.NURSE ---
0958: IV Solucortef administered as ordered.
--- NOTE | 2025-02-01 10:42 | PC.NURSE ---
1010: IV Gamunex initiated at this time.
--- NOTE | 2025-02-01 10:42 | PC.NURSE ---
1042: Tolerating infusion without c/o. Denies needs
--- NOTE | 2025-02-01 11:23 | PC.NURSE ---
Lunch tray provided. Pt. denies needs or c/o.
[2025-02-27 09:40] VITALS: BP 151/75; PULSE 78; TEMP 36.2; O2SAT 99
[2025-02-27] MEDS: 0.9 % SODIUM CHLORIDE 500 ML 250 ML IV (09:54)
[2025-02-27] MEDS: HYDROCORTISONE SODIUM SUCC PF 100 MG/2 ML VIAL 120 MG IVP (10:07)
--- NOTE | 2025-02-27 10:17 | PC.NURSE ---
Patient took his preprocedure medication benadryl and acetaminophen prior to arriving for infusion
[2025-02-27] MEDS: IMMUNE GLOBUL G/GLY/IGA AVG 46 400 ML IV (10:35)
== END 2025-03-03 23:59 | disposition home or self-care (01) ==
LOC: INF 09:39
PROVIDERS: PCP Family Medicine; Visit Provider Allergy & Immunology
DX: D80.6 Antibody deficiency with near-normal immunoglobulins or with hyperimmunoglobulinemia (principal)
CPT/HCPCS: 96365; 96366; 96375; J1561; J1720

== ENCOUNTER 2025-03-27 09:33 | Outpatient (RCR) | payer MEDICARE, SELFPAY ==
[2025-03-27 09:38] VITALS: BP 144/97; TEMP 36.6; O2SAT 92
[2025-03-27] MEDS: 0.9 % SODIUM CHLORIDE 250 ML IV (09:52)
[2025-03-27] MEDS: HYDROCORTISONE SODIUM SUCC PF 100 MG/2 ML VIAL 120 MG IVP (10:00)
[2025-03-27] MEDS: IMMUNE GLOBUL IV (10:10)
[2025-03-27] MEDS: GLY IV (10:10)
[2025-03-27] MEDS: IGA AVG IV (10:10)
== END 2025-04-02 23:59 | disposition home or self-care (01) ==
LOC: INF 09:33
PROVIDERS: PCP Family Medicine; Visit Provider Allergy & Immunology
DX: D80.6 Antibody deficiency with near-normal immunoglobulins or with hyperimmunoglobulinemia (principal)
CPT/HCPCS: 96365; 96366; 96375; J1561; J1720

== ENCOUNTER 2025-04-28 15:53 | Emergency (ER) | payer MEDICARE, SELFPAY ==
[2025-04-28 16:07] VITALS: BP 188/111; PULSE 101; TEMP 36.3; O2SAT 94; BMI 28.3
--- NOTE | 2025-04-28 16:29 | XR_ITS ---
[place] [id number] Patient Name: VERNA NEELY MRN: [id number] date: 1960 Sex: M Assigned Patient Location: ED.MAIN Current Patient Location: Accession/Order Number: [id number] Exam Date: 04/28/2025 17:00 Report Date: 04/28/2025 20:39 At the request of: KATIA MAYORGA DO Procedure: XR chest 2V Plain film chest 2 view HISTORY: Cough for one week COMPARISON: None FINDINGS: SUPPORT DEVICES: None POSTSURGICAL CHANGES: None HEART: Within normal limits PULMONARY KERRY: Within normal limits MEDIASTINUM: Unremarkable LUNGS AND PLEURA: No acute lung process, pleural effusion or pneumothorax identified. BONY STRUCTURES: Intact ADDITIONAL FINDINGS None XR/XR chest 2V IMPRESSION: No acute process. Impression dictated by: Jayant Gonzalez M.D. 04/28/2025 8:39 PM Dictation Location: [place] [address] Electronically authenticated by: [id number] Y Date: 04/28/2025 20:39
--- OUTSIDE RECORDS SUMMARY | 2025-04-28 16:33 | XMS_ITS | Patient Health Record ---
Author Organization [facility] Address [address] [place] [address] Care Team Providers Care Fermenter Name Role Phone DannyRosa edward Primary Care Provider [phone] Allergies Allergen (clinical drug ingredient) Drug/Non Drug Allergy documented on EMR Reaction Allergy Type Onset Date Status Information temporarily unavailable chocolate (uncoded) Un known Allergy ActiveInformation temporarily unavailablegrass (uncoded)UnknownAllergyActive Information temporarily unavailablemsg (uncoded)UnknownAllergyActiveInformation temporarily unavailablepine trees (uncoded)UnknownAllergyActiveInformation temporarily unavailableCiproUnknownDrug AllergyActiveInformation temporarily unavailableIndocinUnknownDrug AllergyActiveInformation temporarily unavailable BaclofenUnknownDrug AllergyActiveInformation temporarily unavailablePenicillin UnknownDrug AllergyActiveInformation temporarily unavailablePropranololUnknown Drug AllergyActiveInformation temporarily unavailableSulfa AntibioticsUnknown Drug AllergyActive Reason For Referral No Information Medications Medication SIG (Take, Route, Frequency, Duration) Notes Start Date End Date Status Amitriptyline HCl 100 MG Tablet 1 tablet Orally Once a day ActiveEffexor XR 75 MG Capsule Extended Release 24 Hour2 tablets in the morning, 1 tablet at night Orally as directedActive Social History Tobacco Use: Social History Observation Description Date Details (start date - stop date) Never Smoker NA - NA Social History GeneralSocial InfoQuestionAnswerNotesDepression Screening (PHQ-9):Little interest or pleasure in doing thingsSeveral daysFeeling down, depressed, or hopelessMore than half the daysTrouble falling or staying asleep, or sleeping too muchNearly every dayFeeling tired or having little energySeveral daysPoor appetite or overeatingNot at allFeeling bad about yourself-or that you are a failure or have let yourself or your family downSeveral daysTrouble concentrating on things, such as reading the newspaper or watching television Several daysMoving or speaking so slowly that other people could have noticed. Or the opposite being so fidgetyor restless that you have been moving around a lot more than usualSeveral daysThoughts that you would be better off , or of hurting yourself in some wayNot at allTotal Eahxy76YkrrtaywsymxaDkdnhcbx DepressionTobacco Screen:Are you a:never smokerAlcohol Screening:Did you have a drink containing alcohol in the past year?RdAnjgnd6FszurslwdaeqnjZsvapqhd Problems Problem Type SNOMED Code ICD Code Onset Dates Problem Status W/U Status Risk Notes Problem Information temporarily unavaila ble Major depressive disorder, recurrent episode, moderate (F33.1) ActiveconfirmedProblemInformation temporarily unavailableOther Specified Anxiety Disorder (F41.8)Activeconfirmed Plan Of Treatment No Information Insurance Providers Payer Name Payer Address Payer Phone Subscriber Number Group Number Insured Name Patient Relationship to Insured Coverage Start Date Coverage End Date [facility] MEDICARE ADVANTAGE [address] [place] [phone] [id number] [facility] JAMIEVERNA MENEZES Self - patient is the insured 3 Medical (General) History Medical History History ICD Code Borderline Hypertension COVID LonghaulBrain FogShortness of breathCOPDHx of fallingMigrainesLow immune systemHx of strokeSurgical History Surgery Date(Month/Year) 16 knee surgery Hospitalization History Reason Date(Month/Year) Stroke
--- OUTSIDE RECORDS SUMMARY | 2025-04-28 16:33 | XMS_ITS | Clinical Summary ---
Author Organization [facility] Address [address], [address] [place] [address] Care Team Providers Care Mortar Mixer Name Role Phone Raquel Rayo MD Primary Care Provider [phone] Allergies Active AllergyReactionsCriticalityNoted DateCommentsBaclofenOther (See Comments) 01/17/2017 Muscle weakness HjlgjfqorrmuxKgtxNep84/16/2017IndomethacinOther (See Comments)01/17/2017 Low BP PenicillinsOther (See Comments)01/17/2017 RASH BcnoleuajbbVdlaImi30/26/2019 Severe low bp and kidneys shutting down. Sulfa AntibioticsOther (See Comments)09/27/2017 HIVES DiazepamOther (See Comments)09/27/2017 DEPRESSION Medications MedicationSigDispense QuantityRefillsLast FilledStart DateEnd DateStatus celecoxib (CELEBREX) 200 MG capsule Take 200 mg by mouth 4 times dailyActive tamsulosin (FLOMAX) 0.4 MG capsule Take 0.8 mg by mouth nightlyActive fluticasone (FLONASE) 50 MCG/ACT nasal spray Indications:each nostril1 spray by Nasal route dailyActive Albuterol Sulfate (PROAIR HFA IN) Indications:2 puffs every 4 hours prnInhale into the lungsActive Catheters (SELF-CATH PLUS STRAIGHT TIP) MISC Prelube Cure ultra M 14 F Straight Cath QID 120 each Active benralizumab (FASENRA) 30 MG/ML SOSY injection Indications:given every 2 monthsIndications: given every 2 jifxmu2011/12/2017 Active potassium chloride (KLOR-CON M) 20 MEQ extended release tablet Take 1 tablet by mouth 2 times daily 180 tablet 04/13/2019Active albuterol (PROVENTIL) (2.5 MG/3ML) 0.083% nebulizer solution Take 3 mLs by nebulization every 6 hours as needed for Wheezing 120 each 11106/22/2018Active Additional Information Patient not taking.Reported on 12/08/2019 nitrofurantoin, macrocrystal-monohydrate, (MACROBID) 100 MG capsule Take 100 mg by mouth daily05/26/2019Active cloNIDine (CATAPRES) 0.1 MG tablet Indications:Essential hypertensionTAKE 1 TABLET BY MOUTH TWICE A DAY 180 tablet Active atorvastatin (LIPITOR) 40 MG tablet Indications:DyslipidemiaTAKE 1 TABLET BY MOUTH EVERY DAY 90 tablet Active amLODIPine (NORVASC) 5 MG tablet TAKE 1 TABLET BY MOUTH EVERY DAY 90 tablet Active primidone (MYSOLINE) 250 MG tablet Indications:patient stated he takes in eveningTake 250 mg by mouth daily Indications: patient stated he takes in eveningActive DULoxetine (CYMBALTA) 60 MG extended release capsule Indications:Chronic peripheral neuropathic pain,Pins and needles sensationTake 1 capsule by mouth daily 30 capsule Active primidone (MYSOLINE) 50 MG tablet 3 tablets at 7 am 90 tablet Active spironolactone (ALDACTONE) 25 MG tablet TAKE 1 TABLET BY MOUTH EVERY DAY 90 tablet Active omeprazole (PRILOSEC) 20 MG delayed release capsule TAKE 1 CAPSULE BY MOUTH TWICE A DAY 180 capsule Active naratriptan (AMERGE) 2.5 MG tablet Indications:Intractable chronic migraine without aura and without status migrainosusTake 1 tablet by mouth once as needed for Migraine 2.5 mg at onset of headache, may repeat in 4 hours if needed 9 tablet Active topiramate (TOPAMAX) 200 MG tablet Indications:1 tab in AM and 1 tab at 5:00 PMTake 1 tablet by mouth 2 times daily Indications: 1 tab in AM and 1 tab at 5:00 PM 60 tablet Active topiramate (TOPAMAX) 100 MG tablet Indications:1 tablet at noon and 1 at bedtimeTake 1 tablet by mouth 2 times daily Indications: 1 tablet at noon and 1 at bedtime 60 tablet Active verapamil (CALAN SR) 120 MG extended release tablet Take 1 tablet by mouth daily 30 tablet Active losartan (COZAAR) 100 MG tablet Indications:Essential hypertensionTAKE 1 TABLET BY MOUTH EVERY DAY 90 tablet Active gabapentin (NEURONTIN) 800 MG tablet TAKE 1 TABLET BY MOUTH 4 TIMES DAILY 120 tablet Active amitriptyline (ELAVIL) 100 MG tablet Take 50 mg by mouth tydkubc5201/16/2018Active oxyCODONE (ROXICODONE) 5 MG immediate release tablet Take 5 mg by mouth as needed.10/20/2019Active montelukast (SINGULAIR) 10 MG tablet Indications:Seasonal allergic rhinitis due to pollenTake 1 tablet by mouth daily 90 tablet Active levocetirizine (XYZAL) 5 MG tablet Indications:Seasonal allergic rhinitis due to pollenTake 0.5 tablets by mouth nightly 45 tablet Active Umeclidinium [place] 62.5 MCG/INH AEPB Inhale 1 puff into the lungs daily 1 each Active levalbuterol (XOPENEX) 0.63 MG/3ML nebulization Take 1 ampule by nebulization every morning Pt to take as ONE every morning. Active levalbuterol (XOPENEX) 0.63 MG/3ML nebulization Take 1 ampule by nebulization every 3-4 hours as needed for WheezingActive tiotropium (SPIRIVA HANDIHALER) 18 MCG inhalation capsule Inhale 1 capsule into the lungs daily 1 capsule Active primidone (MYSOLINE) 50 MG tablet Indications:Mixed action and resting tremor,Action tremorTAKE 3 TABLETS BY MOUTH DAILY AT 7 AM AND TAKE ONE TABLET DAILY AT NOON 360 tablet Active fluticasone-vilanterol (BREO ELLIPTA) 100-25 MCG/INH AEPB inhaler Inhale 1 puff into the lungs daily for 7 days 7 each 1Active budesonide-formoterol (SYMBICORT) 160-4.5 MCG/ACT AERO Indications:Severe persistent asthma without complication (HCC)INHALE 2 PUFFS TWICE DAILY 30.6 Inhaler 1Active Active Problems ProblemNoted DateDiagnosed QttpTsdacagbkobi11/29/2020Seasonal allergic rhinitis due to dhefiw8610/31/2019Intractable chronic migraine without aura and without status zipepxtygfp11/14/2020Mixed action and resting zgyvcg8509/15/2019Action gvmbes4808/13/2019Chronic migraine without aura without status migrainosus, not ontrvluqytg09/11/2020Cerebrovascular hxofblg2808/13/2019Oropharyngeal dysphagia 06/06/2019Pneumonia of right upper lobe due to infectious icxhtusl19/04/2020 Bilateral carpal tunnel tfauiqaf16/12/2019Bilateral occipital neuralgia 03/14/2019Essential jsaxbvxnhvdg01/17/2019Chronic obstructive pulmonary disease 01/18/2019Severe persistent asthma without ngvluukgfrnr68/12/2019 Lymphadenopathy, adexsnyb10/12/2019Urinary ydrwqjwib13/09/2019Neurogenic bladder 12/10/2018Tremor due to disorder of central nervous qhraog8710/28/2018Neuropathy 10/28/2018Intractable migraine without aura and without status migrainosus 10/28/2018Pneumonia of right middle lobe due to methicillin susceptible Staphylococcus aureus (MSSA) Immunizations ImmunizationAdministration DatesNext DueInfluenza Virus Hxflhpa6305/04/2017 Influenza, AFLURIA (age 3 y+), FLUZONE, (age 6 mo+), Quadv MDV, 0.5mL05/04/2017 Influenza, FLUARIX, FLULAVAL, FLUZONE (age 6 mo+) and AFLURIA, (age 3 y+), Quadv PF, 0.5mL03/04/2019,02/05/2018Pneumococcal, PPSV23, PNEUMOVAX 23, (age 2y+), SC/IM, 0.5mL05/04/2017 Family History Medical HistoryRelationNameCommentsCancerBrotherprostateAlzheimer's Disease FatherHeart FailureFatherEmphysemaMotherStrokeMotherRelationNameStatusComments BrotherAliveFatherDeceasedMaternal GrandfatherDeceasedMaternal Grandmother DeceasedMotherDeceasedPaternal GrandfatherDeceasedPaternal GrandmotherDeceased Social History Tobacco UseTypesPacks/DayYears UsedDateSmoking Tobacco: NeverSmokeless Tobacco: NeverAlcohol UseStandard Drinks/WeekCommentsNot Currently0 (1 standard drink = 0.6 oz pure alcohol)PHQ-2AnswerDate RecordedPHQ-2 Apzed446Sex and Gender InformationValueDate RecordedSex Assigned at BirthNot on fileLegal SexMale 01/17/2017 8:52 PM EDTGender IdentityNot on fileSexual OrientationNot on file Last Filed Vital Signs Vital SignReadingTime TakenCommentsBlood Obxtpsgh479/8305 5:45 PM EDT Odymk822009/08/2020 5:45 PM QAMCipqzfvoapr81.7 ??C (96.3 ??F)09/08/2020 11:58 AM EDTRespiratory Gmsg288109/08/2020 5:45 PM EDTOxygen Isvoebtnew528%09/08/2020 5:45 PM EDTInhaled Oxygen Concentration--Hyogfz83.6 kg (180 lb)09/08/2020 12:03 PM HLWKwikuk381.8 cm (5' 10 )09/08/2020 12:03 PM EDTBody Mass Index25.8309/08/2020 12:03 PM EDT Plan of Treatment Health MaintenanceDue DateLast DoneCommentsDepression Dydyiw3001/19/1973HIV screen 01/20/1976Hepatitis C jkukmv4801/19/19792297Foerpxlhdqi18/18/2006Colorectal Cancer Iybqwf0901/19/2006FIT/FOBT: Average risk2006Fecal-DNA (Cologuard): Average risk2006Sigmoidoscopy/CT sfppictiaplf64/18/0082Pmolej90, 11/11/2018Shingles vaccine (2 of 2)/04/2020Pneumococcal 50+ years Vaccine (2 of 2 - PCV)/01/2021, 05/04/2017Flu vaccine (#1)12/02/2024 04/14/2022, 01/16/2020, 03/04/2019, Additional history existsCOVID-19 Vaccine (2 - season)504/2DTaP/Tdap/Td vaccine (2 - Td or Tdap) /2Respiratory Syncytial Virus (RSV) or age 60 yrs+ (1 - 1-dose 75+ series)01/20/2036Prostate Specific Antigen (PSA) Screening or WzjjnnmuxaEzqadntcjeug34/11/2019Diabetes kgvufdIdxbnxvzybib46/12/2019 Pneumococcal 0-49 years RjyjfftFkhyrzweapac61/09/2021, 05/04/2017Hepatitis A vaccineAged OutNo longer eligible based on patient's age to complete this topic Hepatitis B vaccineAged OutNo longer eligible based on patient's age to complete this topicHib vaccineAged OutNo longer eligible based on patient's age to complete this topicMeningococcal (ACWY) vaccineAged OutNo longer eligible based on patient's age to complete this topicMeningococcal B vaccineAged OutNo longer eligible based on patient's age to complete this topicPolio vaccineAged OutNo longer eligible based on patient's age to complete this topic Procedures Procedure NamePriorityDate/TimeAssociated DiagnosisCommentsPOCT GLYCOSYLATED HEMOGLOBIN (HGB A1C)Jyeuagm6604/14/2019 8:37 AM EST Elevated random blood glucose level LIPID GPUFJAsanlfl88/04/2019 12:55 PM EST Dyslipidemia PSA AKOOOEOSZIaxhzht54/11/2019 10:16 AM EDT Prostate cancer screening from Last 3 Months or Most Recently Relevant to Health Maintenance Results * POCT glycosylated hemoglobin (Hb A1C) (04/14/2019 8:37 AM EST)ComponentValue Ref RangeTest MethodAnalysis TimePerformed AtPathologist SignatureHemoglobin A1C5.4%Specimen (Source)Anatomical Location / LateralityCollection Method / VolumeCollection TimeReceived TimeBLOOD SPECIMEN / Ybdvlwx7504/14/2019 8:37 AM EST Narrative Authorizing ProviderResult TypeResult StatusShdhaval Rowan Dealibia MANAGER COSTING - CNPPOINT OF CARE TEST ORDERABLESFinal Result * Lipid Panel (04/06/2019 12:55 PM EST)ComponentValueRef RangeTest Method Analysis TimePerformed AtPathologist AztyvjepwSkmgxazrtri707<200 mg/dL 04/06/2019 12:55 PM [facility] Cholesterol Guidelines: <200 Desirable 200-240 ??Borderline >240 Undesirable HDL68>40 mg/dL04/06/2019 12:55 PM [facility]: HDL Guidelines: <40 Undesirable 40-59 ?Borderline >59 Desirable LDL Awzcfsiewxy531 - 130 mg/dL04/06/2019 12:55 PM [facility]: LDL Guidelines: <100 Desirable 100-129 ?? Near to/above Desirable 130-159 ?? Borderline >159 Undesirable Direct (measured) LDL and calculated LDL are not interchangeable tests. Chol/HDL Ratio2.5<512 12:55 PM [facility] Comment:Vbalthtetquml031<150 mg/dL04/06/2019 12:55 PM [facility]: Triglyceride Guidelines: <150 Desirable 150-199 ??Borderline 200-499 ??High >499 Very high Based on AHA Guidelines for fasting triglyceride, February 2012. VLDLNOT REPORTED1 - 30 mg/dL04/06/2019 12:55 PM [facility] LABSpecimen (Source)Anatomical Location / LateralityCollection Method / Volume Collection TimeReceived TimeBLOOD SPECIMEN / Odbqamq6004/06/2019 12:55 PM EST 04/06/2019 12:56 PM EST Narrative Authorizing ProviderResult TypeResult StatusShdhaval Rowan Deats MANAGER COSTING - CNPCHEMISTRY ORDERABLESFinal ResultPerforming OrganizationAddressCity/State/ZIP CodePhone Number [facility] [address] [phone] * PSA Screening (11/11/2018 10:16 AM EDT)ComponentValueRef RangeTest Method Analysis TimePerformed AtPathologist SignaturePSA2.88<4.1 ug/L11/11/2018 10:16 AM EDPR[facility] LABComment: The Jessica ECLIA assay is used. ??Results obtained with different assay methods cannot be used interchangeably. Specimen (Source)Anatomical Location / LateralityCollection Method / Volume Collection TimeReceived TimeBLOOD SPECIMEN / Xigvtvw4111/11/2018 10:16 AM EDT 11/11/2018 10:17 AM EDT Narrative Authorizing ProviderResult TypeResult StatusOni Rowan Deats MANAGER COSTING - CNPCHEMISTRY ORDERABLESFinal ResultPerforming OrganizationAddressCity/State/ZIP CodePhone Number [facility] [address] [place] [address], [facility] [phone] from Last 3 Months or Most Recently Relevant to Health Maintenance Insurance * Guarantor: Sariportia Brandon Nieto TypeRelation to PatientDate of BirthPhone Billing AddressPersonal/JflmptIaak1960 [address] [address] Care Teams Team MemberRelationshipSpecialtyStart DateEnd Date Raquel Rayo MD PCP - GeneralFamily Medicine11/21/19
--- OUTSIDE RECORDS SUMMARY | 2025-04-28 16:33 | XMS_ITS | Clinical Summary ---
Author Organization [facility] Address [id number] [address] [place] [address] Care Team Providers Care Dry Cleaner Presser Name Role Phone Unavailable Primary Care Provider Unavailabl e Allergies Active AllergyReactionsCriticalityNoted EyteMaspxrokHvescgvd34/16/2019 Weakness, dizziness Sbhixllgpcbkt79/16/2019 Rash, tongue swelling Gzzgadardkhc34/16/2019 hypotension Qwcnoowsiid94/16/2019 rash Sjsmplydmfg24/16/2019 hypotension Sulfa (Sulfonamide Antibiotics)02/16/2019 Sob, rash Medications MedicationSigDispense QuantityRefillsLast FilledStart DateEnd DateStatus aspirin 81 mg Take 81 mg by mouth 2 (two) times a day.Active celecoxib (CeleBREX) 200 mg capsule Take 200 mg by mouth 4 (four) times a day.Active fluticasone propionate (FLONASE) 50 mcg/actuation nasal spray Administer 1 spray into each nostril daily.Active mometasone/formoterol (DULERA INHL) Inhale.Active umeclidinium brm/vilanterol tr (ANORO ELLIPTA INHL) Inhale.Active levalbuterol (XOPENEX) 1.25 mg/3 mL nebulizer solution Inhale 1 ampule by nebulization every 4 (four) hours as needed for wheezing. Active losartan (COZAAR) 50 mg tablet Take 100 mg by mouth daily.Active cloNIDine (CATAPRES) 0.1 mg tablet Take 0.1 mg by mouth 2 (two) times a day.Active amLODIPine (NORVASC) 5 mg tablet Take 5 mg by mouth daily.Active nitrofurantoin, macrocrystal-monohydrate, (MACROBID) 100 mg capsule Take 100 mg by mouth 2 (two) times a day.Active spironolactone (ALDACTONE) 25 mg tablet Take 25 mg by mouth daily.Active SUMAtriptan succinate 3 mg/0.5 mL pen injector Inject under the skin.Active tamsulosin (FLOMAX) 0.4 mg capsule Take 0.4 mg by mouth daily.Active topiramate (TOPAMAX) 100 mg tablet Take 100 mg by mouth 4 (four) times a day.Active tiZANidine (ZANAFLEX) 4 mg tablet Take 4 mg by mouth every 6 (six) hours as needed for muscle spasms.Active verapamil (VERELAN) 120 mg 24 hr capsule Take 120 mg by mouth nightly.Active orphenadrine (NORFLEX) 100 mg 12 hr tablet Take 100 mg by mouth 2 (two) times a day.Active albuterol (PROVENTIL HFA;VENTOLIN HFA) 90 mcg/actuation inhaler Inhale 2 puffs every 4 (four) hours as needed for wheezing.Active gabapentin (NEURONTIN) 600 mg tablet Take 600 mg by mouth 4 (four) times a day.Active omeprazole (PriLOSEC) 40 mg capsule Take 40 mg by mouth daily.Active raNITIdine (ZANTAC) 300 mg tablet Take 300 mg by mouth 2 (two) times a day.Active amitriptyline (ELAVIL) 50 mg tablet Take 50 mg by mouth nightly.Active primidone (MYSOLINE) 50 mg tablet Take 50 mg by mouth 2 (two) times a day. 250 mg at HSActive HYDROcodone-acetaminophen (NORCO) 5-325 mg per tablet Take 1 tablet by mouth every 6 (six) hours as needed for pain.Active OMALIZUMAB SUBQ Inject under the skin.Active Social History Tobacco UseTypesPacks/DayYears UsedDateSmoking Tobacco: NeverSmokeless Tobacco: NeverAlcohol UseStandard Drinks/WeekCommentsNever0 (1 standard drink = 0.6 oz pure alcohol)AUDIT-CAnswerDate RecordedFrequency of Alcohol ConsumptionNever 02/16/2019Average Number of DrinksNot on file02/16/2019Frequency of Binge DrinkingNot on file02/16/2019ChildcareAnswerDate RecordedChildcareUnknown 10/07/2018EmploymentAnswerDate FaujwnchCdbcvnausxOqzqbad76/06/2019Purpose - Life AnswerDate RecordedPurpose and direction in lnjoVovehvd56/11/2021ex and Gender InformationValueDate RecordedSex Assigned at BirthNot on fileLegal SexMale 02/12/2015 11:51 PM EDTGender IdentityNot on fileSexual OrientationNot on file Last Filed Vital Signs Vital SignReadingTime TakenCommentsBlood Pressure--Pulse--Temperature-- Respiratory Rate--Oxygen Saturation--Inhaled Oxygen Concentration--Ypzqse06 kg (205 lb)02/16/2019 1:28 PM IUTTxwgic732.3 cm (5' 9 )02/16/2019 1:28 PM EDTBody Mass Index30.271 1:28 PM EDT Plan of Treatment Health MaintenanceDue DateLast DoneCommentsDepression Jkevegnwf94/18/1973Tobacco Tgeseuzvh68/18/1973Adult BMI Weumozrcp69/18/1979Zoster (Shingles) Vaccine (2 of 2)COVID-19 Vaccine (3 - season)504/06/2021, 06/20/2021Influenza Odbmuvy86/01/218450/07/2023, 04/14/2022, 01/16/2020, Additional history existsDTaP,Tdap and Td Vaccines (2 - Td or Tdap)04/05/2032 2RSV ( or age 60+ yrs) (1 - 1-dose 75+ series)01/20/2036 Medical Devices Not on file
--- OUTSIDE RECORDS SUMMARY | 2025-04-28 16:33 | XMS_ITS | Clinical Summary ---
Author Organization [facility] Address [address] [place] [address] Care Team Providers Care Charge Account Authorizer Name Role Phone Unavailable Primary Care Provider Unavailabl e Social History Tobacco UseTypesPacks/DayYears UsedDateSmoking Tobacco: Never AssessedSex and Gender InformationValueDate RecordedSex Assigned at BirthNot on fileLegal Sex Male07/16/2022 8:25 PM EDTGender IdentityNot on fileSexual OrientationNot on file Plan of Treatment DateTypeDepartmentCare Team (Latest Contact Info)Nmxxyrmiyaw13/06/2026 1:30 PM ESTOffice Visit [facility] [address] [place] [address] Goldie Mcgregor MD [address] [place] [address] Health MaintenanceDue DateLast DoneCommentsCT Yisoxbvqqewq1961Colonoscopy 1Colorectal Cancer Bxlhtggns1961FIT-DNA1961FIT1960 FOBT1960 6304Qckxrkrgzezpx1961Influenza Vaccine (#1)510/07/2023, 04/14/2022, 01/16/2020, Additional history existsPneumococcal Vaccine: Pediatrics (0 to 5 Years) and At-Risk Patients (6 to 64 Years)Aged OutNo longer eligible based on patient's age to complete this topic Insurance
[2025-04-28 16:38] LABS: SARS-CoV-2 Ag NEGATIVE (NEGATIVE)
[2025-04-28 16:49] LABS: Hematocrit 51.8 % (42.0-54.0); Hemoglobin 18.7 g/dL (14.0-18.0); Immature Granulocytes Abs Auto 0.01 10^3/uL (0.00-0.03); Immature Granulocytes Pct Auto 0.2 % (0.0-0.5); Lymphocytes Absolute Auto 1.4 10^3/uL (1.2-3.8); Mean Corpuscular HGB Conc 36.1 g/dL (29.9-35.2); Mean Corpuscular Hemoglobin 30.6 pg (25.9-34.0); Mean Corpuscular Volume 84.8 fL (80.0-94.0); Platelet Count 155 10^3/uL (150-450); Red Blood Count 6.11 10^6/uL (4.70-6.10); White Blood Count 4.8 10^3/uL (4.0-11.0)
--- NOTE | 2025-04-28 16:58 | ED.GENADUL1 ---
HPI HPI - General Adult General Chief complaint: Upper Respiratory Infection Stated complaint: SICK FOR A WEEK/ GETTING WORSE Time Seen by Provider: 04/28/25 15:57 Source: patient Mode of arrival: walk-in History of Present Illness HPI narrative: Patient is a 65-year-old male presenting to the emergency department for evaluation of URI symptoms. Patient has been sick with a cough, congestion, fatigue, and shortness of breath for the last week. He states he gets pneumonia every year, and feels like he may have pneumonia again this year. He also endorses nausea and diarrhea. No vomiting. No fevers or chills. No chest pain. Related Data Home Medications ?Medication ?Instructions ?Recorded ?Confirmed amitriptyline 100 mg tablet 100 mg PO .QHS 10/15/23 11/08/24 atorvastatin 40 mg tablet 40 mg PO .QHS 10/15/23 11/08/24 budesonide 160 mcg-glycopyr 9 2 inh inhalation DAILY 10/15/23 11/08/24 mcg-formot 4.8 mcg/actuation HFA inhaler (Breztri Aerosphere) folic acid 1 mg tablet 1 mg PO DAILY 10/15/23 11/08/24 methenamine hippurate 1 gram tablet 1 g PO BID 10/15/23 11/08/24 omeprazole 40 mg capsule,delayed 40 mg PO BID 10/15/23 11/08/24 release venlafaxine 150 mg 150 mg PO DAILY 10/15/23 11/08/24 capsule,extended release 24 hr fluticasone propionate 50 2 spray intranasal DAILY PRN nasal 10/30/23 11/08/24 mcg/actuation nasal congestion spray,suspension potassium chloride 20 mEq 20 meq PO BID 10/30/23 11/08/24 tablet,extended release(part/cryst) (Klor-Con M) galcanezumab-gnlm 120 mg/mL 120 mg subcut .q21 days 09/05/24 11/08/24 subcutaneous pen injector (Emgality Pen) oxycodone-acetaminophen 5 mg-325 0.5 tab PO Q12H PRN pain 09/05/24 11/08/24 mg tablet pregabalin 100 mg capsule 100 mg PO Q12H 09/05/24 11/08/24 topiramate 200 mg tablet 200 mg PO .COMPLEX 09/05/24 11/08/24 budesonide 0.5 mg/2 mL suspension 0.5 mg inhalation Q12H PRN 10/02/24 11/08/24 for nebulization shortness of breath or wheezing meclizine 12.5 mg tablet 25 mg PO BID PRN dizziness 10/02/24 11/08/24 sumatriptan succinate 100 mg tablet 100 mg PO Q2H PRN migraine headache 10/02/24 11/08/24 sumatriptan succinate 6 mg/0.5 mL 6 mg subcut Q2H PRN migraine 10/02/24 11/08/24 subcutaneous pen injector headache tezepelumab-ekko 210 mg/1.91 mL 210 mg subcut .q28 days 10/28/24 11/08/24 (110 mg/mL) subcutaneous pen injector (Tezspire) aspirin 81 mg tablet,delayed 81 mg PO DAILY 11/08/24 11/08/24 release carvedilol 25 mg tablet 25 mg PO BID 11/08/24 11/08/24 magnesium oxide 400 mg (241.3 mg 400 mg PO TID 11/08/24 11/08/24 magnesium) tablet spironolactone 50 mg tablet 50 mg PO DAILY 11/08/24 11/08/24 Previous Rx's ?Medication ?Instructions ?Recorded celecoxib 200 mg capsule 200 mg PO DAILY PRN pain #0 caps 11/10/24 losartan 25 mg tablet 25 mg PO QD #30 tabs 11/10/24 Allergies Allergy/AdvReac Type Severity Reaction Status Date / Time baclofen Allergy Severe Unknown Verified 10/02/24 00:37 ciprofloxacin (From Cipro) Allergy Severe Unknown Verified 10/02/24 00:37 indomethacin (From Indocin) Allergy Severe Unknown Verified 10/02/24 00:37 Penicillins Allergy Severe Unknown Verified 10/02/24 00:37 Sulfa (Sulfonamide Allergy Severe Unknown Verified 10/02/24 00:37 Antibiotics) propranolol Allergy Unknown Verified 10/02/24 00:37 Opioid HPI Opioid Management Most Recent Opioid Data: Last Pain Scale 0 11/10/24, 11:55 Last ORT Total Score 2 11/08/24, 16:41 Last ORT Risk Category Low Risk 11/08/24, 16:41 Review of Systems ROS Status of ROS 10 or more systems reviewed and unremarkable except as noted in history and below PFSH PFS Medical History (Updated 04/28/25 @ 17:18 by Mohit Reeves DO) Hypoxemia ?R09.02 - Hypoxemia (ICD-10) Weakness ?R53.1 - Weakness (ICD-10) Left lower lobe pneumonia ?J18.9 - Pneumonia, unspecified organism (ICD-10) Enteritis ?K52.9 - Noninfective gastroenteritis and colitis, unspecified (ICD-10) Acute hypokalemia ?E87.6 - Hypokalemia (ICD-10) Septic shock ?A41.9 - Sepsis, unspecified organism (ICD-10) ?R65.21 - Severe sepsis with septic shock (ICD-10) Acute kidney injury ?N17.9 - Acute kidney failure, unspecified (ICD-10) 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 (ICD-10) Sepsis ?A41.9 - Sepsis, unspecified organism (ICD-10) Bacterial pneumonia ?J15.9 - Unspecified bacterial pneumonia (ICD-10) HLD (hyperlipidemia) ?E78.5 - Hyperlipidemia, unspecified (ICD-10) HTN (hypertension) ?I10 - Essential (primary) hypertension (ICD-10) Chronic respiratory failure with hypoxia ?J96.11 - Chronic respiratory failure with hypoxia (ICD-10) Vertigo ?R42 - Dizziness and giddiness (ICD-10) Concussion with loss of consciousness ?S06.0X9A - Concussion with loss of consciousness of unspecified duration, initial encounter (ICD-10) Stroke ?I63.9 - Cerebral infarction, unspecified (ICD-10) Depression ?F32.A - Depression, unspecified (ICD-10) Chronic migraine 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 (ICD-10) Asthma ?J45.909 - Unspecified asthma, uncomplicated (ICD-10) ILD (interstitial lung disease) ?J84.9 - Interstitial pulmonary disease, unspecified (ICD-10) Surgical History H/O laminectomy ?Z98.890 - Other specified postprocedural states (ICD-10) History of hip replacement, total ?Z96.649 - Presence of unspecified artificial hip joint (ICD-10) H/O: knee surgery ?Z98.890 - Other specified postprocedural states (ICD-10) Family History Father Family history of CHF (congestive heart failure) Family history of cancer Family history of myocardial infarction Mother Family history of COPD (chronic obstructive pulmonary disease) Family history of cancer Family history of hypertension Family history of myocardial infarction Family history of stroke Brother Family history of cancer Uncle Family history of cancer Aunt Family history of diabetes mellitus Social History (Updated 11/08/24 @ 17:18 by Marina Arellano) Within the past year, how often did you have a drink containing alcohol: never Score interpretation: A score less than 4 is consistent with normal alcohol consumption. Smoking status: Never smoker Non-prescribed substance use: denies use Previous occupational history: retired Known occupational exposures/hazards: No Highest level of school completed/degree received: Master's degree Do you want help with school or training: No Are you now , , , , never or living with a partner: In a typical week, how many times do you talk on the telephone with family, friends, or neighbors: twice per week How often do you get together with friends or relatives: once per week How often do you attend gnosticism or hindu services: 4 or more times per year Do you belong to any clubs or organizations such as gnosticism groups unions, fraternal or athletic groups, or school groups: yes Total score: 3 Score interpretation: A score of greater than or equal to 2 indicates the lowest level of social isolation. Little interest or pleasure in doing things: not at all Feeling down, depressed, or hopeless: not at all Feel stressed/tense/nervous/anxious/difficulty sleeping: to some extent Do you think of yourself as: straight/heterosexual Gender Identity: male Exam Narrative Exam Narrative: CONSTITUTIONAL: Appears ill but nontoxic, answering questions and following commands appropriately SKIN: Was warm and dry. EYES: Sclerae white. EARS, NOSE, THROAT: Moist oral mucosa. RESPIRATORY: Rhonchi heard throughout the lung quesada bilaterally. No wheezing. No use of accessory muscles. Speaking in full sentences on room air. CARDIOVASCULAR: Normal rate and regular rhythm. There is no S3, S4, murmur, rub. GASTROINTESTINAL: Abdomen is soft, nontender, and nondistended. MUSCULOSKELETAL: No peripheral edema. NEUROLOGIC: Patient is awake and alert. Facies were symmetrical. Constitutional Vital Signs, click to edit/add: Last Vital Signs Temp 97.3 F L 04/28/25 16:07 Pulse 101 H 04/28/25 16:07 Resp 18 04/28/25 16:07 BP 188/111 H 04/28/25 16:07 Pulse Ox 94 L 04/28/25 16:07 O2 Del Method Room Air 04/28/25 16:07 Course Vital Signs Vital signs: Vital Signs Temperature 97.3 F L 04/28/25 16:07 Pulse Rate 101 H 04/28/25 16:07 Respiratory Rate 18 04/28/25 16:07 Blood Pressure 188/111 H 04/28/25 16:07 Pulse Oximetry 94 L 04/28/25 16:07 Oxygen Delivery Method Room Air 04/28/25 16:07 Temperature 97.3 F L 04/28/25 16:07 Pulse Rate 101 H 04/28/25 16:07 Respiratory Rate 18 04/28/25 16:07 Blood Pressure 188/111 H 04/28/25 16:07 Pulse Oximetry 94 L 04/28/25 16:07 Oxygen Delivery Method Room Air 04/28/25 16:07 Medical Decision Making [facility] Narrative Medical decision making narrative: Patient is a 65-year-old male presenting to the emergency department a 1 week history of URI/flulike symptoms. His vital signs arrival are significant for hypertension, borderline tachycardia, and borderline hypoxia saturating 94% on room air. He is in no respiratory distress. Lung auscultation reveals rhonchi throughout. Differential diagnosis includes viral URI, pneumonia, COVID/flu, dehydration, or other electrolyte/metabolic derangement. IV was established and laboratory studies were obtained. Chest x-ray is ordered. He was given 1 L bolus normal saline and 4 mg IV Zofran for symptomatic treatment. Chest x-ray independently reviewed/interpreted by myself demonstrated no acute cardiopulmonary process. Laboratory studies were only significant for mild hypokalemia which was replaced with oral potassium chloride. No other significant electrolyte or metabolic derangement. No evidence of acute renal injury. No transaminitis or hyperbilirubinemia. COVID/flu swabs negative. No leukocytosis or anemia. On reevaluation, patient is sitting comfortably in the stretcher watching TV. He is tolerating p.o. I do believe he stable for discharge and outpatient follow-up with his PCP. Given his duration of symptoms and comorbidities, I did elect to treat him with a Z-Marco for atypical pneumonia coverage, he was given a written prescription. Return precautions were given including any new or concerning symptoms. Patient understands and agrees to the plan. FINAL IMPRESSION: #Acute upper respiratory infection, possible atypical pneumonia DISPOSITION: Discharge home CONDITION: Good Medical Records Medical records reviewed: Yes I reviewed the patient's medical records Lab Data Lab results reviewed: Yes I reviewed the patient's lab results Labs: Lab Results 04/28/25 04/28/25 Range/Units 16:10 16:45 WBC 4.8 (4.0-11.0) 10^3/uL RBC 6.11 H (4.70-6.10) 10^6/uL Hgb 18.7 H (14.0-18.0) g/dL Hct 51.8 (42.0-54.0) % MCV 84.8 (80.0-94.0) fL MCH 30.6 (25.9-34.0) pg MCHC 36.1 H (29.9-35.2) g/dL RDW 13.3 (11.0-15.0) % Plt Count 155 (150-450) 10^3/uL MPV 9.4 L (9.5-13.5) fL Neut % (Auto) 60.0 (43.0-75.0) % Lymph % (Auto) 29.5 (20.5-60.0) % [place] % (Auto) 9.1 (1.7-12.0) % Eos % (Auto) 0.4 L (0.9-7.0) % Baso % (Auto) 0.8 (0.2-2.0) % Neut # (Auto) 2.9 (1.4-6.5) 10^3/uL Lymph # (Auto) 1.4 (1.2-3.8) 10^3/uL [place] # (Auto) 0.4 (0.3-0.8) 10^3/uL Eos # (Auto) 0.0 (0.0-0.7) 10^3/uL Baso # (Auto) 0.0 (0.0-0.1) 10^3/uL Abs Immat Gran (auto) 0.01 (0.00-0.03) 10^3/uL Imm/Tot Granulo (auto) 0.2 (0.0-0.5) % Sodium 135 L (136-145) mmol/L Potassium 2.7 L* (3.5-5.1) mmol/L Chloride 98 (98-107) mmol/L Carbon Dioxide 28.2 (21.0-32.0) mmol/L Anion Gap 11.5 BUN 5.0 L (7.0-18.0) mg/dL Creatinine 1.01 (0.70-1.30) mg/dL Est GFR ( Amer) >60 (>=60 mL/min/1.73m^2) Est GFR (Non-Af Amer) >60 (>=60 mL/min/1.73m^2) BUN/Creatinine Ratio 5.0 Glucose 115 H (74-106) mg/dL Calcium 8.6 (8.5-10.1) mg/dL Total Bilirubin 1.1 H (0.2-1.0) mg/dL AST 48 H (15-37) U/L ALT 50 (16-63) U/L Alkaline Phosphatase 114 (46-116) U/L Total Protein 7.5 (6.4-8.2) g/dL Albumin 3.7 (3.4-5.0) g/dL Globulin 3.8 g/dL Albumin/Globulin Ratio 1.0 Influenza Type A Ag Negative Influenza Type B Ag Negative RSV Antigen Not detected (NOT DETECTE) SARS-CoV-2 Ag (CV2AG) Negative (NEGATIVE) Imaging Data Chest x-ray: Attestation: I personally reviewed and interpreted this imaging study as follows: Discharge Plan Discharge Chief Complaint: Upper Respiratory Infection Clinical Impression: Atypical pneumonia Patient Disposition: Home, Self-Care Time of Disposition Decision: 17:18 Condition: Fair Mode of Transportation: Private Vehicle Prescriptions / Home Meds: No Action fluticasone propionate 50 mcg/actuation spray,suspension 2 spray intranasal DAILY PRN (Reason: nasal congestion) Rx Instructions: administer into each nostril potassium chloride [Klor-Con M20] 20 mEq tablet,ER particles/crystals 20 meq PO BID Emgality Pen 120 mg/mL pen injector 120 mg SUBCUT .q21 days oxycodone-acetaminophen 5-325 mg tablet 0.5 tab PO Q12H PRN (Reason: pain) pregabalin 100 mg capsule 100 mg PO Q12H topiramate 200 mg tablet 200 mg PO .COMPLEX Rx Instructions: 200 mg orally 5pm and qhs; budesonide 0.5 mg/2 mL suspension for nebulization 0.5 mg inhalation Q12H PRN (Reason: shortness of breath or wheezing) meclizine 12.5 mg tablet 25 mg PO BID PRN (Reason: dizziness) sumatriptan succinate 100 mg tablet 100 mg PO Q2H PRN (Reason: migraine headache) Rx Instructions: MAX 2 IN 24 HOURS sumatriptan succinate 6 mg/0.5 mL pen injector 6 mg SUBCUT Q2H PRN (Reason: migraine headache) Rx Instructions: MAX 12 MG / 24 HOURS amitriptyline 100 mg tablet 100 mg PO .QHS atorvastatin 40 mg tablet 40 mg PO .QHS Breztri Aerosphere 160-9-4.8 mcg/actuation HFA aerosol inhaler 2 inh INHALATION DAILY folic acid 1 mg tablet 1 mg PO DAILY methenamine hippurate 1 gram tablet 1 g PO BID omeprazole 40 mg capsule,delayed release(DR/EC) 40 mg PO BID venlafaxine 150 mg capsule,extended release 24hr 150 mg PO DAILY Tezspire 210 mg/1.91 mL (110 mg/mL) pen injector 210 mg SUBCUT .q28 days aspirin 81 mg tablet,delayed release (DR/EC) 81 mg PO DAILY carvedilol 25 mg tablet 25 mg PO BID magnesium oxide 400 mg (241.3 mg magnesium) tablet 400 mg PO TID spironolactone 50 mg tablet 50 mg PO DAILY losartan 25 mg Tablet 25 mg PO QD Qty: 30 2RF celecoxib 200 mg capsule 200 mg PO DAILY PRN (Reason: pain) Qty: 0 0RF Print Language: German Instructions: Upper Respiratory Infection (ED) Referrals: Raquel Rayo MD [Primary Care Provider, Family Practice] - 1 week
--- NOTE | 2025-04-28 17:01 | PC.NURSE ---
1655 4mg zofran IV and 1,000mL/hr once given to patient
[2025-04-28 17:07] LABS: Alanine Aminotransferase 50 U/L (16-63); Albumin Globulin Ratio 1.0; Albumin Level 3.7 g/dL (3.4-5.0); Alkaline Phosphatase 114 U/L (46-116); Anion Gap 11.5; Aspartate Amino Transferase 48 U/L (15-37); Blood Urea Nitrogen 5.0 mg/dL (7.0-18.0); Calcium 8.6 mg/dL (8.5-10.1); Carbon Dioxide 28.2 mmol/L (21.0-32.0); Chloride 98 mmol/L (98-107); Estimated GFR (African America >60 (>=60 mL/min/1.73m^2); Estimated GFR (Non-African Ame >60 (>=60 mL/min/1.73m^2); Globulin 3.8 g/dL; Glucose 115 mg/dL (74-106); Sodium 135 mmol/L (136-145); Total Protein 7.5 g/dL (6.4-8.2)
[2025-04-28 17:09] LABS: Potassium 2.7 mmol/L (3.5-5.1)
--- NOTE | 2025-04-28 17:18 | PC.NURSE ---
1710 40 meq potassium chloride oral once given to patient
== END 2025-04-28 18:04 | disposition home or self-care (01) ==
PROVIDERS: Emergency Provider Student in an Organized Health Care Education/Training Program; PCP Family Medicine
DX: J18.9 Pneumonia, unspecified organism (principal); E87.6 Hypokalemia; Z87.01 Personal history of pneumonia (recurrent)
CPT/HCPCS: 36415; 71046; 80053; 85025; 87420; 87804; 87811; 99283; 99285